=== PATIENT | female | born 1955 | race Caucasian/White ===

== ENCOUNTER 2023-06-08 07:49 | Outpatient (OUT) | payer OTHER, SELFPAY ==
--- NOTE | 2023-06-08 07:53 | US_ITS ---
The [address] [address] Patient Name: RUPERTO SARAVIA MRN: [id number] date: 1955 Sex: F Assigned Patient Location: US Current Patient Location: US Accession/Order Number: [id number] Exam Date: 06/08/2023 08:05 Report Date: 06/08/2023 09:22 At the request of: KERA STEELE Procedure: US renal BI EXAM: US renal BI HISTORY: Kidney Stone N20.0 COMPARISON: CT abdomen and pelvis 11/12/2022 TECHNIQUE: Real-time ultrasound imaging of the kidneys and bladder. Findings: The right and left kidneys measure 10.5 and11.7 cm. Nonobstructing bilateral renal stones. The largest is within the lower pole of the left kidney measuring 0.7 cm. No renal collecting system dilatation bilaterally. Left 1.3 x 1.5 x 1.0 cm simple cyst. No perinephric fluid collection. The bladder is fluid-filled and unremarkable with a prevoid volume of 397 mL. US/US renal BI IMPRESSION: 1. Nonobstructing bilateral renal stones. 2. Left renal cyst. Electronically authenticated by: ADRIÁN RODRIGUEZ Date: 06/08/2023 09:22
--- NOTE | 2023-06-08 07:53 | XR_ITS ---
The [address] [address] Patient Name: RUPERTO SARAVIA MRN: [id number] date: 1955 Sex: F Assigned Patient Location: US Current Patient Location: US Accession/Order Number: [id number] Exam Date: 06/08/2023 07:58 Report Date: 06/08/2023 08:28 At the request of: KERA STEELE Procedure: XR abdomen 1V EXAMINATION: XR abdomen 1V HISTORY: Kidney Stone N20.0 COMPARISON: CT abdomen pelvis 11/12/2022 FINDINGS: KIDNEY/URETER - RIGHT: No visible renal or ureteral calcifications. KIDNEY/URETER - LEFT: No visible renal or ureteral calcifications. PELVIS: A few tiny pelvic calcifications favoring phleboliths. BOWEL: No abnormal dilation or deviation. BONES: No acute abnormality. OTHER: Negative. No abnormal gaseous collections. XR/XR abdomen 1V IMPRESSION: 1. No appreciable urinary tract calculi. Evaluation is slightly limited by dense overlying bowel content. Electronically authenticated by: RAFAEL WARE Date: 06/08/2023 08:28
== END 2023-06-08 07:50 | disposition home or self-care (01) ==
LOC: US 07:49
PROVIDERS: PCP Internal Medicine; Visit Provider Urology
DX: N20.0 Calculus of kidney (principal)
CPT/HCPCS: 74018; 76775

== ENCOUNTER 2023-06-08 08:59 | Outpatient (OUT) | payer OTHER, MEDICARE, SELFPAY ==
[2023-06-08 09:27] LABS: Basophils Percent Auto 0.5 % (0.2-2.0); Eosinophils Absolute Auto 0.1 10^3/uL (0.0-0.7); Eosinophils Percent Auto 2.2 % (0.9-7.0); Hematocrit 40.6 % (36.0-48.0); Hemoglobin 13.7 g/dL (12.0-16.0); Immature Granulocytes Abs Auto 0.02 10^3/uL (0.00-0.03); Immature Granulocytes Pct Auto 0.3 % (0.0-0.5); Lymphocytes Absolute Auto 1.7 10^3/uL (1.2-3.8); Lymphocytes Percent Auto 28.9 % (20.5-60.0); Mean Corpuscular HGB Conc 33.7 g/dL (29.9-35.2); Mean Corpuscular Volume 97.8 fL (81.0-99.0); Mean Platelet Volume 9.3 fL (9.5-13.5); Monocytes Absolute Auto 0.4 10^3/uL (0.3-0.8); Monocytes Percent Auto 7.4 % (1.7-12.0); Neutrophils Absolute Auto 3.5 10^3/uL (1.4-6.5); Neutrophils Percent Auto 60.7 % (43.0-75.0); Platelet Count 306 10^3/uL (150-450); Red Blood Count 4.15 10^6/uL (4.20-5.40); Red Cell Distribution Width 12.4 % (11.0-15.0); White Blood Count 5.8 10^3/uL (4.0-11.0)
[2023-06-08 09:32] LABS: Estimated Average Glucose 120 mg/dL; Glycohemoglobin A1C 5.8 % (4.5-6.2)
[2023-06-08 10:26] LABS: Anion Gap 10.9; Carbon Dioxide 31.4 mmol/L (21.0-32.0); Chloride 103 mmol/L (98-107); Chol HDL Ratio 3.9; Cholesterol 189 mg/dL (<=200); Estimated GFR (African America >60 (>=60); Estimated GFR (Non-African Ame >60 (>=60); HDL Cholesterol 49 mg/dL (40-60); LDL Cholesterol Calculated 112.6 mg/dL; Potassium 4.3 mmol/L (3.5-5.1); Sodium 141 mmol/L (136-145); Thyroid Stimulating Hormone 1.635 uIU/mL (0.358-3.740); Triglycerides 137 mg/dL (<=150); VLDL CHOLESTEROL 27.4 mg/dL
== END 2023-06-08 09:00 | disposition home or self-care (01) ==
LOC: LAB 09:01
PROVIDERS: PCP Internal Medicine; Visit Provider Internal Medicine
DX: Z00.00 Encounter for general adult medical examination without abnormal findings (principal); N20.0 Calculus of kidney; R73.09 Other abnormal glucose; I10 Essential (primary) hypertension; E78.2 Mixed hyperlipidemia; M85.80 Other specified disorders of bone density and structure, unspecified site; Z79.899 Other long term (current) drug therapy
CPT/HCPCS: 36415; 74018; 76775; 80051; 80061; 82306; 82565; 83036; 83880; 84443; 84520; 85025

== ENCOUNTER 2023-07-07 09:35 | Outpatient (OUT) | payer OTHER, MEDICARE, SELFPAY ==
[2023-07-07 09:54] LABS: Basophils Percent Auto 0.7 % (0.2-2.0); Eosinophils Absolute Auto 0.1 10^3/uL (0.0-0.7); Eosinophils Percent Auto 2.5 % (0.9-7.0); Hemoglobin 13.6 g/dL (12.0-16.0); Immature Granulocytes Abs Auto 0.01 10^3/uL (0.00-0.03); Immature Granulocytes Pct Auto 0.2 % (0.0-0.5); Lymphocytes Absolute Auto 1.4 10^3/uL (1.2-3.8); Lymphocytes Percent Auto 34.8 % (20.5-60.0); Mean Corpuscular HGB Conc 32.4 g/dL (29.9-35.2); Mean Corpuscular Volume 98.8 fL (81.0-99.0); Mean Platelet Volume 9.5 fL (9.5-13.5); Monocytes Absolute Auto 0.3 10^3/uL (0.3-0.8); Monocytes Percent Auto 7.5 % (1.7-12.0); Neutrophils Absolute Auto 2.2 10^3/uL (1.4-6.5); Neutrophils Percent Auto 54.3 % (43.0-75.0); Platelet Count 229 10^3/uL (150-450); Red Blood Count 4.25 10^6/uL (4.20-5.40)
[2023-07-07 10:17] LABS: Estimated Average Glucose 123 mg/dL; Glycohemoglobin A1C 5.9 % (4.5-6.2)
[2023-07-07 11:14] LABS: Alanine Aminotransferase 41 U/L (14-59); Albumin Level 3.6 g/dL (3.4-5.0); Alkaline Phosphatase 65 U/L (46-116); Anion Gap 14.4; Aspartate Amino Transferase 13 U/L (15-37); Bilirubin Direct 0.1 mg/dL (0.0-0.2); Bilirubin Total 0.5 mg/dL (0.2-1.0); Carbon Dioxide 27.5 mmol/L (21.0-32.0); Chloride 104 mmol/L (98-107); Estimated GFR (African America >60 (>=60); Estimated GFR (Non-African Ame >60 (>=60); Globulin 3.6 g/dL; Potassium 3.9 mmol/L (3.5-5.1); Sodium 142 mmol/L (136-145); Thyroid Stimulating Hormone 1.392 uIU/mL (0.358-3.740); Total Protein 7.2 g/dL (6.4-8.2)
== END 2023-07-07 09:36 | disposition home or self-care (01) ==
LOC: LAB 09:35
PROVIDERS: PCP Internal Medicine; Visit Provider Internal Medicine
DX: Z79.899 Other long term (current) drug therapy (principal); E78.2 Mixed hyperlipidemia; E03.9 Hypothyroidism, unspecified; R73.09 Other abnormal glucose
CPT/HCPCS: 36415; 80051; 80076; 82565; 83036; 84443; 84520; 85025

== ENCOUNTER 2024-02-17 08:14 | Outpatient (OUT) | payer MEDICARE, OTHER, SELFPAY ==
--- OUTSIDE RECORDS SUMMARY | 2024-02-17 08:35 | XMS_ITS | CCD ---
Author Organization [facility] CliniSywv Care Team Providers Care Research Program Intern Name Role Phone Gerson Gonzalez Primary Care Provider Self, Referral Attending Provider Unavailable Lisa Carson, Gerson Loja Primary Care Provider GERSON GONZALEZ JR Primary Care Physician [phone] Lisa Carson, Gerson Loja Primary Care Provider Gerson Gonzalez Jr. Primary Care Provider DARRICK, DR ARAMNDO Melo Consulting Unavailable VALONE, DR SKY Primary Care Unavailable LEXI DIETZ Admitting Unavailable LULEXI Escamilla Attending Unavailable LEXI DIETZ Consulting Unavailable VALONE, DR SKY Primary Care Unavailable VINCENT BURCIAGA Attending Unavailable VINCENT BURCIAGA Admitting Unavailable CASSANDRA, ALHAJI Reis Attending Unavailable ALHAJI TRUJILLO Admitting Unavailable VALONE, DR SKY Primary Care Unavailable DARRICK, DR ARMANDO Melo Consulting Unavailable ALHAJI TRUJILLO Consulting Unavailable VINCENT BURCIAGA Admitting Unavailable VALONE, DR SKY Primary Care Unavailable DARRICK, DR ARMANDO Melo Consulting Unavailable VINCENT BURCIAGA Attending Unavailable VINCENT BURCIAGA Consulting Unavailable VALONE, DR SKY Primary Care Unavailable VALONE, DR SKY Admitting Unavailable VALONE, DR SKY Attending Unavailable VALONE, DR SKY Consulting Unavailable WEST, DR ARMANDO Melo Consulting Unavailable LEXI DIETZ Admitting Unavailable VALONE, DR SKY Primary Care Unavailable LEXI DIETZ Attending Unavailable LEXI DIETZ Consulting Unavailable JARAD BENAVIDES Consulting Unavailable JR Gerson Gonzalez Primary Care Provider [phone] CARLOS Wade Attending Provider ADINA ROSALES Attending Unavailable ELIZABETH HILLIARD Referring Unavailable GERSON GONZALEZ JR Primary Care Unavail able ADINA ROSALES Attending Unavailable GERSON GONZALEZ JR Primary Care Unavail able JR Gerson Gonzalez Primary Care Provider CARLOS Wade Attending Provider [phone] Gerson Gonzalez Primary Care Unavailable Vilma Wade Attending Unavailable Vilma Wade Admitting Unavailable Lexi Reid Attending Unavailable Lexi Reid Attending Unavailable MICHAEL CRUZ Attending Unavailable VILMA WADE Attending Unavailable VILMA WADE Referring Unavailable VILMA WADE Attending Unavailable GABRIEL BEYER Attending Unavailable MICHAEL CRUZ Attending Unavailable Allergies Allergy Classification Reported Allergen(s) Allergy Type Date of Onset Reaction(s) Facility (7 sources) Seasonal allergy; Translations: [SEASONAL ALLERGIES] Propensity to adverse reactions 0 Itching [facility] (1 source) Unable to Assess Drug allergy (disorder) 4 [facility] Repository Medications Current Medications Medication Drug Class(es) Dates Sig (Normalized) Sig (Original) onabotulinumtoxina 100 unt injection (3 sources) Acetylcholine Release Inhibitor Start: 04-10-2023 End: 05-10-2023 onabotulinum toxin type A 90 Units injection (BOTOX) Start: 06-01-2022 End: 06-01-2022 onabotulinum toxin type A 10 0 Units injection (BOTOX) Start: 01-19-2022 End: 01-19-2022 onabotulinum toxin type A 94 Units injection (BOTOX) clonazePAM 0.5 mg oral tablet (3 sources) Benzodiazepine Start: 07-23-2022 ClonazePAM 0.5 mg Tab Refills(s) 0 Start Date: 07/23/22 Status: Ordered End: 11-12-2021 clonazePAM (KLONOPIN) 0.5 mg tablet three times daily as needed. 0 11/12/2021 Discontinued (Course of therapy completed) Comment on above: three times daily as needed. FLUoxetine 20 mg oral capsule (10 sources) Serotonin Reuptake Inhibitor Start: 11-26-2022 take 1 mg by mouth once daily Prozac 20 mg Cap mg cap(s), Oral, Daily, Refills(s) 0 Start Date: 11/26/22 Status: Ordered Start: 11-06-2021 FLUoxetine 10 mg Cap Refills(s) 0 Start Date: 01/15/22 Status: Ordered Comment on above: Take 10 mg by mouth once daily. gabapentin 300 mg oral capsule (8 sources) Anti-epileptic Agent Start: 07-24-2021 take 1 capsule by mouth twice daily gabapentin 300 mg Cap 300 mg = 1 cap(s), Oral, BID Start Date: 07/24/21 Status: Ordered Start: 06-26-2014 End: 04-10-2023 gabapentin (NEURONTIN) 300 m g capsule Take 1 pill three times a day 270 capsule 3 06/26/2014 04/10/2023 Discontinued (Course of therapy completed) Comment on above: Take 1 pill three ti mes a day levothyroxine sodium 0.025 mg oral tablet (1 source) l-Thyroxine Start: 06-24-2023 levothyroxine 25 mcg (0.025 mg) Tab Refills(s) 0 Start Date: 06/24/23 Status: Ordered propranolol hydrochloride 20 mg oral tablet (10 sources) beta-Adrenergic Vamshi Start: 07-24-2021 propranolol 20 mg Tab 20 mg = 1 tab(s), Oral, As Directed Start Date: 07/24/21 Status: Ordered Comment on above: as needed. Completed/Discontinued Medications Medication Drug Class(es) Dates Sig (Normalized) Sig (Original) acetylcysteine in water/PF (ACETYLCYSTEINE, PF, IN WATER) 10 % drop (1 source) Start: 08-16-2019 End: 11-12-2021 take 1 drop(s) into the eye(s) three times daily acetylcysteine in water/PF (ACETYLCYSTEINE, PF, IN WATER) 10 % drop Use 1 Drop in the right eye three times daily. 10 mL 11 08/16/2019 11/12/2021 Discontinued Comment on above: Use 1 Drop in the ri ght eye three times daily. Ascorbic Acid (6 sources) Vitamin C ASCORBIC ACID (VITAMIN C ORAL) Take by mouth. 0 Active Comment on above: Take by mouth. 24 hr buPROPion hydrochloride 300 mg extended release oral tablet (1 source) Aminoketone Start: 08-30-2022 End: 04-10-2023 take 1 tablet by mouth once daily in the morning buPROPion XL (WELLBUTRIN XL) 300 mg 24 hr tablet Take 300 mg by mouth every morning. 0 08/30/2022 04/10/2023 Discontinued (Course of therapy completed) Comment on above: Take 300 mg by mouth every morning. cholecalciferol 0.05 mg oral capsule (6 sources) Vitamin D Start: 06-01-2008 CHOLECALCIFEROL (VITAMIN D3) 2,000 UNIT CAP Take one(1) tablet daily. 0 06/01/2008 Active Comment on above: Take one(1) tablet d aily. dexamethasone 0.001 mg/mg / neomycin 0.0035 mg/mg / polymyxin b 10 unt/mg ophthalmic ointment (1 source) Aminoglycoside Antibacterial, Polymyxin-class Antibacterial, Corticosteroid Start: 07-01-2019 End: 11-12-2021 neomycin/polymyxin b/dexametha(MAXITRO L 3.5 MG/G-10,000 UNIT/G-0.1 % EYE OINTMENT) four times a day X 1 week then twice a day x 1 week then once a day x 1 week 3.5 g 0 07/01/2019 11/12/2021 Discontinued (Course of therapy completed) Comment on above: four times a day X 1 week then twice a day x 1 week then once a day x 1 week erythromycin 0.005 mg/mg ophthalmic ointment (1 source) Macrolide, Macrolide Antimicrobial Start: 06-24-2019 End: 11-12-2021 erythromycin ophthalmic ointment Apply 1/2 inch ribbon per application to incisions and INTO both eyes four times daily x 1 week, then twice daily x 1 week, then stop. 0 06/24/2019 11/12/2021 Discontinued (Course of therapy completed) Comment on above: Apply 1/2 inch ribbo n per application to incisions and INTO both eyes four times daily x 1 week, then twice daily x 1 week, then stop. ezetimibe 10 mg oral tablet (10 sources) Dietary Cholesterol Absorption Inhibitor Start: 10-03-2021 take 1 tablet by mouth once daily ezetimibe (ZETIA) 10 mg tablet Take 10 mg by mouth once daily. 0 10/03/2021 Active Start: 07-24-2021 take 1 mg by mouth once daily ezetimibe mg, Oral, Daily Start Date: 07/24/21 Status: Ordered Comment on above: Take 10 mg by mouth once daily. famciclovir 500 mg oral tablet (1 source) Herpes Simplex Virus Nucleoside Analog DNA Polymerase Inhibitor Start: End: famciclovir (FAMVIR) 500 mg tablet lisdexamfetamine dimesylate 30 mg oral capsule (1 source) Central Nervous System Stimulant take 1 capsule by mouth once daily lisdexamfetamine (VYVANSE) 30 mg capsule Take 30 mg by mouth once daily. 0 Active Comment on above: Take 30 mg by mouth once daily. Magnesium Oxide-Mg Amino Acid Chelate (MAGNESIUM) 300 mg cap (3 sources) take 1 capsule by mouth once daily at bedtime Magnesium Oxide-Mg Amino Acid Chelate (MAGNESIUM) 300 mg cap Take 300 mg by mouth daily at bedtime. 0 Active Comment on above: Take 300 mg by mouth daily at bedtime. Magnesium Oxide-Mg Amino Acid Chelate 300 mg cap (3 sources) take 1 capsule by mouth once daily at bedtime Magnesium Oxide-Mg Amino Acid Chelate 300 mg cap Take 300 mg by mouth daily at bedtime. 0 Active Comment on above: Take 300 mg by mouth daily at bedtime. pravastatin sodium 10 mg oral tablet (8 sources) HMG-CoA Reductase Inhibitor Start: End: take 1 tablet by mouth once daily pravastatin (PRAVACHOL) 10 mg tablet Take 10 mg by mouth once daily. 0 11/01/2021 04/10/2023 Discontinued (Course of therapy completed) Comment on above: Take 10 mg by mouth once daily. sertraline 25 mg oral tablet (1 source) Serotonin Reuptake Inhibitor Start: End: sertraline (ZOLOFT) 25 mg tablet Vitamin B Complex (6 sources) Start: take 1 tablet by mouth once daily vitamin b complex tab Take 1 tablet by mouth once daily. 0 08/03/2018 Active Comment on above: Take 1 tablet by ramírez th once daily. Zinc (1 source) Start: End: Zinc 50 mg tab Take by mouth. 0 08/03/2018 11/12/2021 Discontinued Comment on above: Take by mouth. Problems Active Problems Problem Classification Problem Date Documented Date Episodic/Chronic Abdominal pain (6 sources) Abdominal pain; Translations: [Unspecified abdominal pain] Onset: 01-15-2022 Episodic Anxiety disorders (10 sources) Anxiety state; Translations: [Generalized anxiety disorder] 06-01-2008 Chronic Blindness and vision defects (1 source) Visual hallucinations; Translations: [Visual hallucinations] Onset: 11-03-2023 Episodic Calculus of urinary tract (12 sources) Kidney stone; Translations: [Calculus of kidney] Onset: 01-15-2022 Episodic Cardiac and circulatory congenital anomalies (6 sources) Congenital anomaly of cerebrovascular system; Translations: [Other malformations of cerebral vessels] Onset: 07-17-2005 04-01-2018 Chronic Disorders of lipid metabolism (4 sources) Hyperlipidemia 07-24-2021 Chronic Genitourinary symptoms and ill-defined conditions (4 sources) Stress incontinence (female) (male); Translations: [Genuine stress incontinence] Onset: 11-26-2022 Chronic Genitourinary symptoms and ill-defined conditions (5 sources) Hypercalciuria; Translations: [Hypercalciuria] Onset: 01-15-2022 Episodic Headache; including migraine (4 sources) Headache 07-24-2021 Episodic Menopausal disorders (7 sources) Menopausal syndrome; Translations: [Menopausal and female climacteric states] Onset: 11-12-2021 Chronic Osteoarthritis (8 sources) Arthritis; Translations: [Primary osteoarthritis, right ankle and foot] Onset: 02-27-2022 07-24-2021 Chronic Other connective tissue disease (4 sources) Neuralgia 07-24-2021 Episodic Other diseases of kidney and ureters (1 source) Acquired renal cyst without neoplastic change; Translations: [Cyst of kidney, acquired] Onset: 06-24-2023 Episodic Other diseases of kidney and ureters (1 source) Simple renal cyst 06-24-2023 Episodic Other eye disorders (6 sources) Vertical nystagmus; 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] Onset: 12-21-2013 12-21-2013 Chronic Other eye disorders (4 sources) Nystagmus 07-24-2021 Chronic Other hereditary and degenerative nervous system conditions (6 sources) Myoclonus; Translations: [Myoclonus] 06-01-2008 Chronic Other nervous system disorders (1 source) Facial spasm; 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, unspecified] Episodic Other nervous system disorders (2 sources) Facial nerve motor disorder; Translations: [Other disorders of facial nerve] Episodic Other nervous system disorders (1 source) Facial palsy; 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] 04-10-2023 Episodic Other nutritional; endocrine; and metabolic disorders (7 sources) Obese class I; Translations: [Obesity, unspecified] Onset: 11-12-2021 Chronic Other nutritional; endocrine; and metabolic disorders (4 sources) Body mass index 30+ - obesity 09-18-2021 Chronic Thyroid disorders (11 sources) Multinodular goiter; Translations: [Nontoxic multinodular goiter] Onset: 11-12-2021 Chronic Past or Other Problems Problem Classification Problem Date Documented Date Episodic/Chronic Disorders of teeth and jaw (6 sources) Articular disc disorder of temporomandibular joint; Translations: [Articular disc disorder of temporomandibular joint, unspecified side] Onset: 0 04-24-2010 Episodic Other bone disease and musculoskeletal deformities (1 source) Other specified disorders of bone density and structure, left thigh; Translations: [OTH D/O BONE DEN STRUCT LT THIGH] Onset: 2 Episodic Other connective tissue disease (6 sources) Trismus; Translations: [Cramp and spasm] Onset: 0 03-27-2010 Episodic Other connective tissue disease (6 sources) Muscle pain; Translations: [Myalgia and myositis, unspecified] Onset: 1 05-07-2011 Episodic Other connective tissue disease (6 sources) Muscle, ligament and fascia disorders; Translations: [Disorder of muscle, unspecified] Onset: 3 11-04-2012 Episodic Other connective tissue disease (1 source) Calcaneal spur, right foot; Translations: [CALCANEAL SPUR RIGHT FOOT] Onset: 2 Episodic Other connective tissue disease (4 sources) Pain in right foot; Translations: [PAIN IN RIGHT FOOT] Onset: 2 Episodic Other eye disorders (6 sources) Abducens nerve palsy; Translations: [Sixth [abducent] nerve palsy, unspecified eye] Onset: 8 06-01-2008 Episodic Other nervous system disorders (6 sources) Cranial nerve disorder; Translations: [Cranial nerve disorder, unspecified] Onset: 9 06-05-2009 Episodic Residual codes; unclassified (4 sources) Asymptomatic menopausal state; Translations: [ASYMPTOMATIC MENOPAUSAL STATE] Onset: 2 Episodic Results Test Name Value Interpretation Reference Range Facility Reminderson 12-30-2023 Reminders - From: Alejandra Garcia To: [facility]ER[facility] - Recallkirill Reid; Sent: 06/24/2023 08:37:16 EST Show up: 11/23/2023 09:37:00 EDT Subject: KUB and CEASAR prior to appt Reminder Message Please Remember to:_have pt get KUB and CEASAR prior to appt. Pt has gone to [facility] in the past. KUB/CEASAR order faxed to [facility]. Called pt and left to return our call. Pt moved appointment back to 03/30/24 Normal [facility] Creatinine (Bld) [Mass/Vol]O rdered By: Vilma Wade on 11-03-2023 Creatinine [Mass/Vol] 0.6 mg/dL 0.6-1.3 [facility] Comment on above: ER/ESD physician is notified/shown all ISTAT results.Critical values may be confirmed by laboratory testing ifdeemed necessary by ER attending doctor. ISTAT XRay CREon 11-03-2023 Creatinine [Mass/Vol] 0.6 mg/dL Normal 0.6-1.3 [facility] Comment on above: Result Comment: ER/E SD physician is notified/shown all ISTAT results. Critical values may be confirmed by laboratory testing if deemed necessary by ER attending doctor. Performed By: #### I SCRE #### [facility] [address] [place] [address] ISTAT GFR > 60.0 Normal [facility] Comment on above: Result Comment: PERF ORMED BY: [place] [address] PATHOLOGIST BOAT HOP TIFFANIE ROSS M.D. Performed By: #### I SCRE #### [facility] [address] [place] [address] MR head/brain wo/w conon MR head/brain wo/w con [facility] [place] [address] MRI Report Signed Patient: Ofe Saravia MR#: [id number] : 1955 Acct:[id number] Age/Sex: 68 / F ADM Date: 11/03/23 Loc: MR Room: Type: [facility] Attending Dr: Vilma Wade PA-C Copies to: Vilma Wade PA-C Ordering Provider: Vilma Wade PA-C Date of Service: 11/03/23 MR/MR head/brain wo/w con: Q27.30, R44.1 MR head/brain wo/w con 11/03/2023 11:14 AM SIGN AND SYMPTOMS: Headaches posteriorly, left-sided facial droop PROTOCOL: Multiplanar multisequence MR images of the brain were obtained with and without IV contrast CONTRAST: 20 mL of intravenous ProHance COMPARISON: 09/25/2014 FINDINGS: Extra axial spaces: Age appropriate. Hemorrhage: Susceptibility is noted in the pontine tegmentum to the right of midline consistent with a history of cavernous malformation. A small focus of susceptibility is noted in the left parietal lobe possibly representing the location of a second cavernous malformation. Ventricular system: Within normal limits. Basal cisterns: Within normal limits and not effaced. Cerebral parenchyma: T2 and FLAIR hyperintense signal is noted in the periventricular and subcortical white matter consistent with mild chronic microvascular ischemic change. Midline shift: None.. Cerebellum: There is atrophy of the left cerebellar hemisphere. Brainstem: There is increased T2 and FLAIR signal intensity within the medulla anteriorly. OTHER: Calvarium: There is evidence of a previous occipital craniotomy. Vascular system: Satisfactory flow voids within the anterior and posterior circulation. Visualized Paranasal sinuses: Within normal limits. Visualized Orbits: Within normal limits. Visualized upper cervical spine: Within normal limits. Sella and skull base: Within normal limits. MR/MR head/brain wo/w con IMPRESSION: Susceptibility is noted in the pontine tegmentum to the right of midline consistent with a history of cavernous malformation. A small focus of susceptibility is noted in the left parietal lobe possibly representing the location of a second cavernous malformation. There is atrophy of the left cerebellar hemisphere. There is increased T2 and FLAIR signal intensity within the medulla anteriorly. No acute intracranial pathology or abnormal postcontrast enhancement. Additional chronic findings are noted, as above. Impression dictated by: Sanjiv Reis M.D.11/03/2023 3:10 PM Dictation Location: [facility]-- Transcribed By: COLETTE 11/03/23 1510 Dictated By: Sanjiv Reis II, MD 11/03/23 1410 Signed By: 11/03/23 1510 Normal [facility] No Panel InformationOrdered By: Vilma Wade on 11-03-2023 Bedside Estimated GFR (eGFR) > 60.0 [facility] CNCOon 10-14-2023 CNCO Letter Text Normal [facility] CNOVon 10-09-2023 CNOV Office Visit (OTOLMN ) OFE SARAVIA ([id number]) 1955 F Date Time Provider Department 10/09/23 10:00 AM ADINA ROSALES OTOLMN During your visit today, we recorded the following information about you: Adina Rosales MD 10/18/2023 4:43 PM Signed [facility] [place] [facility]ive Surgery Name: Ofe Saravia Date of Service: 10/10/22 Patient ID: 66 year old female w/ brainstem surgery on 11/01/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 Hilliard on 04/14/2016. HPI: Here today in follow up for routine botox injections. Doing well since last visit, really liked orbicular williams injections and wants more. 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 100u/1cc botox injected into: Left orbicularis oculi (2u, 3 sites) = 6 U Left lower pretarsal ( 2u, 2 site) = 4 units Left lateral pretarsal (5U, 1 site) = 5 units Left levator alaeque nasi (2u, 1site) = 2U Left nasalis (3U, 1 site)=3U Left TAMRA (3U 1 site)=3U Lateral to philtrum (2u, 4 sites) = 8 units Left depressor septi (2 units 1 site) = 2 U Left jogger operator (3u, 2 site) = 6 U Left procerus (3u, 1 site) = 3 U Left mentalis (2u, 3 sites) 6 U Left platysma (3u, 18 x sites) = 54 units Right TAMRA (3U 1 site)=3U Right jogger operator (2U, 2 sites) = 4U Right lateral orbicularis infrabrow= 2U, 1 site=2U Right platysma (3U [id number]) = 9 U Total: 120 units used (3 Units of botox discarded) Assessment: 66 year old female w/ a hx of facial paralysis and an 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 Here today for botox injections and procedure was tolerated well. Interested in lip AND nasolabial fold filler at next appt Plan: RTC in 3-4 months for repeat botox injections, sooner for filler. Quote sent Patient will send mychart, does not wish to schedule at this time Adina Rosales MD Facial Plastic and Reconstructive Surgery Fellow [facility], [facility] [place] Bogdan Mirza RN 10/09/2023 10:38 AM Signed Tobacco Use: 1.5 packs/day, for 18 years. Quit 07/20/1999. Types: Cigarettes Was smoking cessation packet given? N/A - Patient is a non-smoker or quit >1 year ago. Was a referral initiated?N/A Patient is a non-smoker Allergies As of Date: 10/09/2023 Noted Allergy Reaction SEASONAL ALLERGIES 01/02/2010 9 - Itching Date Reviewed: 10/09/2023 Reviewed by: Bogdan Mirza RN - Fully Assessed Reason for Visit: Established Patient [175] Cmt: Botox injection for facial paralysis Primary Visit Diagnosis:Facial paralysis [G51.0] Order(s):[] onabotulinum toxin type A 120 Units injection (BOTOX)Disp: Rfl: Prescriptions as of 10/18/2023 - FLUoxetine (PROZAC) 20 mg capsule Take 20 mg by mouth once daily. - ezetimibe (ZETIA) 10 mg tablet Take 10 mg by mouth once daily. - propranolol (INDERAL) 20 mg tablet as needed. - vitamin b complex tab Take 1 tablet by mouth once daily. - ASCORBIC ACID (VITAMIN C ORAL) Take by mouth. - Magnesium Oxide-Mg Amino Acid Chelate 300 mg cap Take 300 mg by mouth daily at bedtime. - CHOLECALCIFEROL (VITAMIN D3) 2,000 UNIT CAP Take one(1) tablet daily. 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 Quit 07/20/1999. Types: Cigarettes Was smoking cessation packet given? N/A - Patient is a non-smoker or quit >1 year ago. Was a r (more content not included)... Normal [facility] Patient Educationon 06-24-20 Patient Education Nephrology Dietary Guidelines to Help Prevent Kidney Stones Kidney stones are deposits of minerals and salts that form inside your kidneys. Your risk of developing kidney stones may be greater depending on your diet, your lifestyle, the medicines you take, and whether you have certain medical conditions. Most people can lower their risks of developing kidney stones by following these dietary guidelines. Your dietitian may give you more specific instructions depending on your overall health and the type of kidney stones you tend to develop. What are tips for following this plan? Reading food labels ? Choose foods with no salt added or low-salt labels. Limit your salt (sodium) intake to less than 1,500 mg a day. ? Choose foods with calcium for each meal and snack. Try to eat about 300 mg of calcium at each meal. Foods that contain 200?500 mg of calcium a serving include: ? 8 oz (237 mL) of milk, calcium-fortifiednon- dairy milk, and calcium-fortifiedfrui t juice. Calcium-fortified means that calcium has been added to these drinks. ? 8 oz (237 mL) of kefir, yogurt, and soy yogurt. ? 4 oz (114 g) of tofu. ? 1 oz (28 g) of cheese. ? 1 cup (150 g) of dried figs. ? 1 cup (91 g) of cooked broccoli. ? One 3 oz (85 g) can of sardines or mackerel. Most people need 1,000?1,500 mg of calcium a day. Talk to your dietitian about how much calcium is recommended for you. Shopping ? Buy plenty of fresh fruits and vegetables. Most people do not need to avoid fruits and vegetables, even if these foods contain nutrients that may contribute to kidney stones. ? When shopping for convenience foods, choose: ? Whole pieces of fruit. ? Pre-made salads with dressing on the side. ? Low-fat fruit and yogurt smoothies. ? Avoid buying frozen meals or prepared deli foods. These can be high in sodium. ? Look for foods with live cultures, such as yogurt and kefir. ? Choose high-fiber grains, such as whole-wheat breads, oat bran, and wheat cereals. Cooking ? Do not add salt to food when cooking. Place a salt shaker on the table and allow each person to add their own salt to taste. ? Use vegetable protein, such as beans, textured vegetable protein (TVP), or tofu, instead of meat in pasta, casseroles, and soups. Meal planning ? Eat less salt, if told by your dietitian. To do this: ? Avoid eating processed or pre-made food. ? Avoid eating fast food. ? Eat less animal protein, including cheese, meat, poultry, or fish, if told by your dietitian. To do this: ? Limit the number of times you have meat, poultry, fish, or cheese each week. Eat a diet free of meat at least 2 days a week. ? Eat only one serving each day of meat, poultry, fish, or seafood. ? When you prepare animal proteins, cut pieces into small portion sizes. For most meat and fish, one serving is about the size of the palm of your hand. ? Eat at least five servings of fresh fruits and vegetables each day. To do this: ? Keep fruits and vegetables on hand for snacks. ? Eat one piece of fruit or a handful of berries with breakfast. ? Have a salad and fruit at lunch. ? Have two kinds of vegetables at dinner. ? You may be told to limit foods that are high in a substance called oxalate. These include: ? Spinach (cooked), rhubarb, beets, sweet potatoes, and Belarusian chard. ? Peanuts. ? Potato chips, nepalese fries, and baked potatoes with skin on. ? Nuts and nut products. ? Chocolate. ? If you regularly take a diuretic medicine, make sure to eat at least 1 or 2 servings of fruits or vegetables that are high in potassium each day. These include: ? Avocado. ? Banana. ? [place], prune, carrot, or tomato juice. ? Baked potato. ? Cabbage. ? Beans and split peas. Lifestyle ? Drink enough fluid to keep your urine pale yellow. This is the most important thing you can do. Spread your fluid intake throughout the day. ? If you drink alcohol: ? Limit how much you have to: ? 0?1 drink a day for women who are not . ? 0?2 drinks a day for men. ? Know how much alcohol is in your drink. In the [place] one drink equals one 12 oz bottle of beer (355 mL), one 5 oz glass of wine (148 mL), or one 1? oz glass of hard liquor (44 mL). ? Lose weight if told by your health care provider. Work with your dietitian to find an eating plan and weight loss strategies that work best for you. General information ? Talk to your health care provider and dietitian about taking daily supplements. Depending on your health and the cause of your kidney stones, you may be told: ? Do not take high-dose supplements of vitamin C (1,000 mg a day or more). ? To take a calcium supplement. ? To take a daily probiotic supplement. ? To take other supplements such as magnesium, fish oil, or vitamin B6. ? Take ycui-wrb-rmfjiow and prescription medicines only as told by your health care provider. These include supplements. What foods sh (more content not included)... Normal [facility] Urology Office/Clinic Noteon 06-24-2023 Urology Office/Clinic Note Chief Complaint 6m CEASAR & KUB HPI Staff 7m KUB & CEASAR DX: Kidney Stone & Stress Incontinence *No Urology Meds KUB & CEASAR 06/08/23 Denies current Kidney Stone symptoms. Has been trying to drink the lemon juice daily. Denies daily incontinence. Does have some leaking with coughing when she has a full bladder. Denies urinary complaints. History of Present Illness Tests reviewed: reviewed UA, CEASAR, KUB I have reviewed the previous health record information and history for this patient from Dr. Reid. I have reviewed and verified the staff HPI to be accurate for this encounter. Review of Systems PHQ Score Initial Depression Screen Score: 0 SCORE ROS - Provider Constitutional: denies weight loss, denies hot flashes. Eyes: denies eye problems. Gastrointestinal: denies nausea, denies vomiting. Cardiovascular: denies chest pain or angina. Integumentary: no dryness Musculoskeletal: denies musculoskeletal symptoms. ENMT: denies otolaryngeal symptoms. Respiratory: no shortness of breath. Heme/Lymph: denies easy bleeding tendency, denies easy bruising tendency. Psychiatric: no confusion, no anxiety. Genitourinary: See HPI. Physical Exam Vitals & Measurements HT: 69 in HT: 175 cm WT: 95 kg WT: 209 lb BMI: 31.02 General Appearance: alert , no acute distress, well nourished, well developed female. Genitourinary: bladder nonpalpable, no flank pain. Assessment/Plan 67 yo F here for 7 mo f/u to review KUB and CEASAR. 1. Kidney stone (N20.0: Calculus of kidney) CT AP 07/31/21 - Mild right hydroureter with periureteral stranding near the distal ureter without evidence of obstructing stone. And nonobstructing 3 mm nephrolithiasis within the superior pole of the left kidney. KUB 07/08/22 - Left superior pole renal calculus. US kidneys 07/08/22 - Nonobstructing superior pole left renal calculus. CT AP wo con 11/12/22 [facility] - Bilateral punctate nonobstructing nephrolithiasis (3 on right, 1 on left all < 1mm) . No hydro. KUB 06/08/23 [facility] - no stones id'd but bowel limits study. CEASAR 06/08/23 [facility] - nonobstructing bilateral renal stones, measuring up to 0.7cm in LLP. No hydro. Personal review: R measuring up to 7mm, L measuring 3-4mm. 07/31/21: Met w/u: WNL. BUN 19.0, CREA 0.79, Uric acid 4.1, PTH 24. 08/15/21: 24hr urine Litholink: high calcium levels, advised patient to avoid taking calcium supplements and try to get these from food. 12/25/21: 24hr [facility]olink: Calcium improved from 448 to 232, Citrate improved 440 to 770, Sodium worsened from 222 to 237. Pt's Volume was 2 liters. UA today negative for blood and infection. Denies any stone episodes since last encounter. Has been trying to increase her daily intake of water and lemon juice, has not been doing well with diet lately, plans to restart. Discussed recent imaging results. Stones have increased in size slightly but US do tend to overestimate size. Discussed with pt possible options, such as repeat metabolic workup, starting medications such as HCTZ pending repeat workup, or continuing dietary modifications. Pt would like to continue dietary modifications to prevent further stone growth/formation. Risks discussed -Increase water intake -Increase Ca intake with diet, if supplement needed per PCP then have with food. -6 mos w/ KUB and CEASAR 2. Stress incontinence (N39.3: Stress incontinence (female) (male)) Only has leakage with coughing with full bladder. States when she had a cold a few weeks ago, her leakage worsened but has improved since. Can do PFPT at home but does has not been doing it. Not bothersome enough to warrant tx. Advised pt if this sx worsens to let our office know to discuss possible tx options. -Kegel exercises, timed voids 3. Simple renal cyst (N28.1: Cyst of kidney, acquired) [facility] 06/08/23 [facility] - 1.3 x 1.5 x 1.0 cm simple cyst. No indication for intervention. I spent 30 minutes today with the patient: reviewing tests in preparation to see and discuss them with the patient, documenting clinical information in the electronic health records, and care coordination. Time was spent performing a medical exam and evaluation, counseling and educating the patient, and ordering tests in caring for the patient. Follow-up With When Contact Information Franklin FLOYD, Lexi Regalado, URL, [facility] [address] [place] [address]- [phone] Additional Instructions: 6 mos w/ KUB and CEASAR Patient Education Dietary Guidelines to Help Prevent Kidney Stones Alejandra Sweeney, personally scribed for Dr. Reid on 06/24/2023 08:35:40. . Documentation recorded by the scribeAlejandra, accurately reflects the services(s) I performed and decisions made by me. Authenticated by Dr. Reid on 06/24/2023 08:45:01. Problem List/Past Medical History Ongoing Arthritis BMI 31.0-31.9,adult Flank pain Headache Hypercalciuria Hyperlipidemia Hypothyroid Kidney stone Nerve pain Nystagmus Panic disorder Simple renal (more content not included)... Normal [facility] Comment on above: Result Comment: Elec tronically Signed By: Lexi Reid MD\.br\Date and Time Signed: 06/24/23 08:45 EST\.br\Electronically Co-Signed By: Alejandra Garcia\.br\Date and Time Co-Signed: 06/24/23 08:35 EST RAD - MISCon 06-09-2023 RAD - MISC [id number]. 00TIFF Normal [facility] RAD - Ultrasound Reporton RAD - Ultrasound Report [id number]. 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 Hilliard on 04/14/2016. HPI: Here today in follow up for routine botox injections. Doing well since last visit but did not like impact on mouth, felt like upper lip was too rolled up. 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 - Significant asymmetry due to hyperdynamic function of all divisions of left facial nerve - Frontalis and orbicularis oculi, zygomaticus major, levator labii and jogger operator - Severe lateral pull of upper lip to left - related to midface muscles and hyperdynamic orbicularis williams - philtrum significantly canted EYE -Downward pull due to platysma, mentalis, depressor right eye closure complete, weight in good position -Lower lid position good Procedure note: Injection facial botox Technique: 100u/1cc botox injected into: Left orbicularis oculi (2u, 4 sites) = 8 U Left lower pretarsal ( 1u, 4 site) = 4 U Left levator alaeque nasi (2AND3u, 2site) = 5 U Lateral to philtrum (2u, 4 sites) = 8 U Left jogger operator (3u, 2 site) = 6 U Left procerus (3u, 1 site) = 3 U Left mentalis (3AND2u, 3 sites) 8 U Left platysma (3u, 16 x sites) = 48 units Total: 90 units used (10 Units of botox discarded) Assessment: 66 year old female w/ a hx of facial paralysis and an 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 Here today for botox injections and procedure was tolerated well. Interested in lip AND nasolabial fold filler at next appt Plan: RTC in 3-4 months for repeat botox injections, sooner for filler Patient will send mychart, does not wish to schedule at this time Adina Rosales MD Facial Plastic and Reconstructive Surgery Fellow [facility], [facility] [place] Macy Leyva RN 04/10/2023 9:45 AM Signed Tobacco Use: 1.5 packs/day, for 18 years. Quit 07/20/1999. Types: Cigarettes Was smoking cessation packet given? N/A - Patient is a non-smoker or quit >1 year ago. 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 - ezetimibe (ZETIA) 10 mg tablet Take 10 mg by mouth once daily. - propranolol (INDERAL) 20 mg tablet as needed. - vitamin b complex tab Take 1 tablet by mouth once daily. - ASCORBIC ACID (VITAMIN C ORAL) Take by mouth. - Magnesium Oxide-Mg Amino Acid Chelate 300 mg cap Take 300 mg by mouth daily at bedtime. - CHOLECALCIFEROL (VITAMIN D3) 2,000 UNIT CAP Take one(1) tablet daily. 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 Quit 07/20/1999. Types: Cigarettes Was smoking cessation packet given? N/A - Patient is a non-smoker or quit >1 year ago. Was a referral initiated?N/A Patient is a non-smoker Prescriptions ordered this encounter Disp Refills Start End ONABOTULINUMTOXINA 100 UNIT SOLUTION* 04/10/ (more content not included)... Normal [facility] CT ABD/PELVIS WO CONon 11-12 CT ABD/PELVIS WO CON EXAMINATION: CT ABD/PELVIS WO CON, 11/12/2022 10:02 AM EDT HISTORY: Kidney stone COMPARISON: 07/31/2021 TECHNIQUE: CT scan of the abdomen and pelvis was performed without IV contrast. CT dose reduction technique was used, including Automated Exposure Control. FINDINGS: LUNG BASES: No visible pulmonary or pleural disease. LIVER: Diffuse hyper density suggesting steatosis. No focal lesion BILIARY: No dilatation or calcification. PANCREAS: 1.7 cm hypodensity proximal pancreatic body, stable SPLEEN: No enlargement or focal lesion. ADRENALS: No mass or enlargement. KIDNEYS: Bilateral punctate nonobstructing nephrolithiasis. No hydronephrosis. BOWEL/MESENTERY: No visible mass, obstruction, or bowel wall thickening. AORTA/VASCULAR: No aortic aneurysm. Mild atherosclerosis RETROPERITONEUM: No mass or adenopathy. LYMPH NODES: No adenopathy. URINARY BLADDER: No visible focal wall thickening, lesion, or calculus. PELVIC ORGANS: 2.5 cm left adnexal cyst. Pelvic organs appropriate for patient age. ABDOMINAL WALL: No mass or hernia. BONES: No bony lesion or fracture. OTHER: Negative. IMPRESSION: Punctate bilateral nephrolithiasis with no obstructive uropathy 2.5 cm left adnexal cyst Stable 1.7 cm proximal pancreatic body hypodensity DIAGNOSIS CODE: #DC 1000: NO ALERT REQUIRED VA_DIAGNOSTIC_CODE Electronically authenticated by: ARMANDO HOLLINGSWORTH Date: 2022-11-12 11:22 Normal [facility] US KIDNEYSon 07-08-2022 US KIDNEYS US KIDNEYS EXAM DATE: 07/08/2022 5:54 AM MST COMPARISON: Same day radiograph, CT abdomen and pelvis without contrast 07/31/2021 INDICATION: History of kidney stones. TECHNIQUE: Real-time ultrasound scanning of the kidneys and bladder was performed by the wet process miller head. Sales Record Clerk static images are submitted for review. FINDINGS: Right Kidney: The right kidney measures 10.8 x 5.2 x 6.1 cm and has a volume of 180 mL. Normal echogenicity. No hydronephrosis. No shadowing calculi. No obvious contour deforming lesion or solid renal mass. Renal cortex measures 1.6 cm. Left Kidney: The left kidney measures 11.1 x 5.1 x 5.4 cm and has a volume of 160 mL. Normal echogenicity. No hydronephrosis. Nonobstructing superior pole echogenic focus with associated twinkle artifact measures 7 x 6 x 4 mm. No obvious contour deforming lesion or solid renal mass. Renal cortex measures 1.8 cm. Bladder: Volume measures up to 420 mL. No focal or diffuse bladder wall thickening noted. IMPRESSION: 1. Nonobstructing superior pole left renal calculus. 2. No hydronephrosis. Electronically authenticated by: JARAD BENAVIDES Date: 2022-07-08 16:58 Normal [facility] XR KUB 1 VIEWon 07-08-2022 XR KUB 1 VIEW EXAM: XR KUB 1 VIEW STUDY DATE: 07/08/2022 5:55 AM MST COMPARISONS: CT abdomen and pelvis without contrast 07/31/2021, ultrasound kidneys 07/08/2022 INDICATION: Kidney stone TECHNIQUE: AP abdominal radiograph. FINDINGS: Bowel gas pattern: Nonobstructive bowel gas pattern. Moderate colonic stool burden. Abnormal calcifications: Pelvic phleboliths. No definite radiopaque calculi projecting over the projected location of the kidneys, ureters, or bladder. Recently identified left superior pole renal calculus is not profiled radiographically. Bone: No acute osseous abnormality. Transitional lumbosacral anatomy is incidentally noted. Soft tissues: No gross organomegaly or mass effect. IMPRESSION: 1. Left superior pole renal calculus, visualized on same day ultrasound, is not profiled radiographically. 2. No radiopaque renal calculi identified. 3. Nonobstructive bowel gas pattern. Electronically authenticated by: JARAD BENAVIDES Date: 2022-07-08 17:05 Normal [facility] XR DEXA BONE DENSITYon 06-05 XR DEXA BONE DENSITY EXAMINATION: XR DEX A BONE DENSITY, 06/05/2022 11:17 AM EST HISTORY: Menopause present COMPARISON: 2015 TECHNIQUE: Dual-energy X-ray absorptiometry (DEXA) bone density study performed for the axial skeleton. FINDINGS: Bone mineral density AP spine L1-L4 measures 1.002 g/sq cm. T score -1.5. WHO classification: Osteopenia. Lowest bone mineral density left femoral neck measuring 0.779 g/sq cm. T score -1.9. WHO classification: Osteopenia IMPRESSION: Osteopenia. Moderate fracture risk Electronically authenticated by: ARMANDO HOLLINGSWORTH Date: 2022-06-05 12:51 Normal [facility] CT FOOT RT WO CONon 02-28-[address] FOOT RT WO CON EXAMINATION: CT FOOT RT WO CON HISTORY: Arthritis of right foot COMPARISON: No relevant comparison available. TECHNIQUE: Multi-planar CT images were created without IV contrast. Dose reduction techniques were achieved by using automated exposure control and/or adjustment of mA and/or kV according to patient size and/or use of iterative reconstruction technique. FINDINGS: BONES: No acute fracture or dislocation. Moderate enthesopathic spurring of the calcaneus at the Achilles and plantar insertions. Mild degenerative changes consisting primarily of joint space narrowing. No subchondral erosions. No focal lytic or sclerotic changes. SOFT TISSUES: Negative. No visible soft tissue swelling. EFFUSION: None visible. OTHER: Negative. IMPRESSION: Mild degenerative changes consisting primarily of joint space narrowing Moderate enthesopathic spurring of the calcaneus Electronically authenticated by: ARMANDO HOLLINGSWORTH Date: 2022-02-27 18:17 Normal [facility] T4 FREE/FREE THYROXon 2021 Free T4 [Mass/Vol] 1.0 ng/dL 0.9 - 1.7 ng/dL [facility] TSH BLDon 11-12-2021 TSH Qn 2.420 m[IU]/L 0.270 - 4.200 mIU/L [facility] Vital Signs Date Time Vital Sign Value Performing Clinician Landy flores 11-03-2023 11:21-0400 Body height 175.26 cm JR Gerson Gonzalez Work Phone: [facility] 11-03-2023 11:21-0400 Body weight 97.52 kg JR Gerson Gonzalez Work Phone: [facility] 11-26-2022 07:56-0400 Blood Pressure Location Lexi Lue [facility] 11-26-2022 07:56-0400 Diastolic blood pressure 67 mm[Hg] Lexi Lue [facility] 11-26-2022 07:56-0400 Heart rate 62 /min Lexi Lue [facility] 11-26-2022 07:56-0400 Systolic blood pressure 113 mm[Hg] Lexi Lue [facility] 01-15-2022 10:13-0400 Blood Pressure Location Lexi Lue [facility] 01-15-2022 10:13-0400 Diastolic blood pressure 73 mm[Hg] Lexi Lue [facility] 01-15-2022 10:13-0400 Heart rate 70 /min Lexi Lue [facility] 01-15-2022 10:13-0400 Respiratory rate 16 /min Lexi Lue [facility] 01-15-2022 10:13-0400 Systolic blood pressure 122 mm[Hg] Lexi Lue [facility] 11-12-2021 10:56-0400 Body height 175.3 cm Shawna Card MD, PhD Work Phone: [facility] 11-12-2021 10:56-0400 Body weight 98.88 kg Shawna Card MD, PhD Work Phone: [facility] 11-12-2021 10:56-0400 Diastolic blood pressure 74 mm[Hg] Shawna Card MD, PhD Work Phone: [facility] 11-12-2021 10:56-0400 Heart rate 64 /min Shawna Card MD, PhD Work Phone: [facility] 11-12-2021 10:56-0400 Systolic blood pressure 128 mm[Hg] Shawna Card MD, PhD Work Phone: [facility] Encounters Encounter Date Encounter Type Care Provider Facility Start: 03-30-2024 ambulatory Lexi Reid Facility: [facility] Start: 02-02-2024 End: 02-02-2024 ambulatory MICHAEL CRUZ Not Available Start: 01-28-2024 End: 01-28-2024 ambulatory MICHAEL CRUZ Not Available Start: 01-11-2024 End: 01-11-2024 ambulatory GABRIEL BEYER Not Available Start: 12-28-2023 End: 12-28-2023 ambulatory VILMA WADE Not Available Start: 12-10-2023 End: 12-10-2023 ambulatory VILMA WADE Not Available Start: 11-12-2023 End: 11-12-2023 ambulatory VILMA WADE Not Available Start: 11-03-2023 End: 11-03-2023 ambulatory Gerson Meeksbrandy Facility:[facility] Start: 11-03-2023 End: 11-03-2023 ambulatory JR Gerson Owens Lisa Work Phone: [facility] Work Phone: Start: 11-03-2023 End: 11-03-2023 Patient encounter procedure JR Gerson Gonzalez Work Phone: [facility] Work Phone: Start: 10-09-2023 End: 10-09-2023 ambulatory ADINA ROSALES Facility:[facility] Start: 08-24-2023 End: 08-24-2023 ambulatory JR Gerson Gonzalez Work Phone: [facility] Work Phone: Start: 08-24-2023 End: 08-24-2023 Patient encounter procedure JR Gerson Gonzalez Work Phone: [facility] Work Phone: Start: 08-06-2023 End: 08-06-2023 ambulatory MICHAEL CRUZ Not Available Start: 06-24-2023 End: 06-24-2023 ambulatory Lexi Reid Facility:[facility] Start: 06-24-2023 End: 06-24-2023 Patient encounter procedure Lexi Reid [facility] Start: 04-10-2023 End: 04-10-2023 ambulatory ADINA ROSALES Facility:[facility] Start: 04-10-2023 End: 04-10-2023 Patient encounter procedure Adina Rosales MD Work Phone: Otolaryngology Comment on above: Facial paralysis (Pr imary Dx) Start: 11-26-2022 End: 11-26-2022 Patient encounter procedure Lexi Reid [facility] Start: 11-12-2022 End: 11-13-[address] ARMANDO HOLLINGSWORTH Facility: Start: 09-10-2022 ambulatory Elizabeth Hilliard MD Work Phone: [facility] Start: 09-10-2022 Patient encounter procedure Elizabeth Hilliard MD Work Phone: Facial Plastics/Reconstruction Comment on above: Botox Appointment Start: 07-23-2022 End: 07-23-2022 Patient encounter procedure Lexi Reid [facility] Start: 07-08-2022 End: 07-09-2022 ambulatory LEXI REID . Facility:[facility] Start: 06-05-2022 End: 06-06-[address] GERSON GONZALEZ Facility:[facility]1 Start: 05-16-2022 End: 05-16-2022 Patient encounter procedure Elizabeth Hilliard MD Work Phone: Facial Plastics/Reconstruction Comment on above: Facial nerve motor d isorder (Primary Dx) Start: 02-27-2022 End: 02-28-2022 ambulatory VINCENT BURCIAGA Facility:[facility]1 Start: 02-19-[address] GERSON GONZALEZ [facility] ity:H1 Start: 01-15-2022 End: 01-15-2022 Patient encounter procedure Lexi Reid [facility] Start: 12-25-2021 End: 12-26-2021 ambulatory ALHAJI TRUJILLO Facility:[facility]1 Start: 12-13-2021 End: 12-13-2021 Patient encounter procedure Elizabeth Hilliard MD Work Phone: Facial Plastics/Reconstruction Comment on above: Facial nerve spasm ( Primary Dx); Facial nerve motor disorder Start: 11-13-2021 Telephone encounter Shawna rothman MD, PhD Work Phone: Endocrinology Comment on above: Results Start: 11-12-2021 End: 11-12-2021 Patient encounter procedure Shawna Card MD, PhD Work Phone: Endocrinology Comment on above: Multiple thyroid nod ules (Primary Dx); Obesity, Class I, BMI 30-34.9; Vasomotor symptoms due to menopause Start: 11-23-2020 End: 11-23-2020 Patient encounter procedure Gerson Gonzalez Work Phone: [facility] Procedures Date Procedure Procedure Detail Performing Clinician Start: 11-03-2023 MRI of head JR Gerson Gonzalez Work Phone: Start: 11-23-2020 Screening mammograph y of bilateral breasts Gerson Gonzalez Work Phone: Start: 10-19-2003 Procedure on brain Nasreen Reid Ankle region structu re (body structure) Lexi Reid Procedure on eye Lexi Reid Plan of Treatment Date Care Activity Detail Author Start: 03-20-2023 Influenza vaccination Influenza Vacc ine (#1) [facility] Start: 07-20-2022 ADVANCE DIRECTIVE DISCUSSION ADVANCE DIRECTIVE DISCUSSION [facility] Start: 07-20-2022 DEPRESSION ASSESSMENT DEPRESSION ASS ESSMENT [facility] Start: 03-20-2022 Influenza vaccination [facility] Start: 10-31-2021 COVID-19 VACCINE (4 - Booster for Pfizer series) COVID-19 VACCINE (4 - Booster for Pfizer series) [facility] Start: 2021 ADVANCE DIRECTIVE DISCUSSION ADVANCE DIRECTIVE DISCUSSION [facility] Start: 2021 BONE DENSITY BONE DENSITY [facility] Start: 2021 Bone Density Screening Bone Density Screening [facility] Start: 2021 Pneumococcal Vaccine : 65+ (1 - PCV) Pneumococcal Vaccine: 65+ (1 - PCV) [facility] Start: 2021 PNEUMOCOCCAL: 65+ (1 - PCV) PNEUMOCOCCAL: 65+ (1 - PCV) [facility] Start: 2021 PNEUMOVAX AGE 65 AND OVER WITH 5YR LOOKBACK (#1) PNEUMOVAX AGE 65 AND OVER WITH 5YR LOOKBACK (#1) [facility] Start: 08-27-2021 COVID-19 VACCINE (4 - Booster for Pfizer series) COVID-19 VACCINE (4 - Booster for Pfizer series) [facility] Start: 08-27-2021 Covid-19 Vaccine (4 - Pfizer series) Covid-19 Vaccine (4 - Pfizer series) [facility] Start: 07-20-2021 DEPRESSION ASSESSMENT DEPRESSION ASS ESSMENT [facility] Start: 12-24-2012 DIABETES SCREEN DIABETES SCREEN [facility] Start: 12-24-2012 Diabetes Screening Diabetes Screenin g [facility] Start: 2006 SHINGRIX VACCINE (1 of 2) SHINGRIX V ACCINE (1 of 2) [facility] Start: 2001 COLOGUARD (FIT-DNA) COLOGUARD (FIT-D NA) [facility] Start: 2001 Colonoscopy COLONOSCOPY [facility] Start: 2001 COLORECTAL CANCER SCREENING COLORECTAL CANCER SCREENING [facility] Start: [address] COLONOGRAPHY [facility] Start: 2001 FECAL OCCULT BLOOD FECAL OCCULT BLOO D [facility] Start: 2001 Lipid 1996 panel - S john or Plasma Lipid Screening [facility] Start: 2001 LIPID SCREEN LIPID SCREEN [facility] Start: 2001 SIGMOIDOSCOPY SIGMOIDOSCOPY [facility] Start: 1996 Mammography [facility] Start: 09-24-1975 Urine microalbumin profile [facility] Start: 1974 HEPATITIS C SCREENING HEPATITIS C SC REENING [facility] Start: 1974 HIV SCREENING HIV SCREENING [facility] Start: 1968 Adult depression scr eening assessment DEPRESSION SCREENING [facility] [place] [facility] Immunizations Immunization Date Immunization Notes Care Provider Fa [facility] 07-02-2021 SARS-CoV-2 (COVID-19 ) mRNA BNT-162b2 vax Lexi Lue [facility] 01-08-2021 SARS-CoV-2 (COVID-19 ) mRNA BNT-162b2 vax Lexi Lue [facility] 10-08-2020 SARS-CoV-2 (COVID-19 ) mRNA BNT-162b2 vax Lexi Lue [facility] 07-20-2020 SARS-CoV-2 (COVID-19 ) mRNA BNT-162b2 vax Lexi Lue [facility] Payers Date Payer Category Payer Self-pay [id number] 2023 Unknown [id number] 2017 Private Health Insurance [employer] [id number] 2017-Present [phone] [address] [address] [place] [address] O [id number] 2017 Private Health Insurance [employer] [id number] 2017-Present [phone] [address] [address] [place] [address] O [id number] 2012 Unknown DENTAL DENTAL GE NERIC [id number] 2012-Present [phone] [address] [address] [place] [address] Dental [id number] 2005 Medicare MEDICARE MEDICAR E A AND B [id number] 2005-Present [phone] [place] [address] Medicare [id number] 2005 Medicare MEDICARE MEDICAR E A AND B [id number] 2005-Present [phone] [place] [address] Medicare [id number] 1959 Medicare [id number] 1959 Private Health Insurance [id number] 1956 Unknown [id number] [id number]. 593 1956 Unknown [id number] 2.16.840.1.999929.3.579.2. 593 1956 Unknown [id number] 2.16.840.1.166886.3.579.2. 593 1956 Unknown [id number] 2.16.840.1.092473.3.579.2. 593 1956 Unknown [id number] 2.16.840.1.401913.3.579.2. 593 1956 Unknown [id number] 2.16.840.1.093636.3.579.2. 593 1956 Unknown [id number] 2.16.840.1.094179.3.579.2. 727 1956 Unknown [id number] 2.16.840.1.966129.3.579.2. 727 1956 Unknown [id number] 2.16.840.1.151216.3.579.2. 1259 1956 Unknown [id number] 2.16.840.1.527064.3.579.2. 1259 1956 Unknown [id number] 2.16.840.1.307199.3.579.2. 1259 1956 Unknown [id number] 2.16.840.1.593639.3.579.2. 1259 1956 Unknown [id number] 2.16.840.1.047923.3.579.2. 1259 1956 Unknown [id number] 2.16.840.1.018314.3.579.2. 1259 1956 Unknown [id number] 2.16.840.1.747027.3.579.2. 1259 Medicare Self Pay [id number] Unknown [id number] Unknown [id number] [id number]. 531 Social History Date Type Detail Facility Tobacco smoking stat us [facility] Unknown if ever smoked [facility] Start: 1955 Sex Assigned At Female F [facility] Start: 09-18-2021 End: 06-24-2023 Tobacco smoking status NHIS Ex-smoker [facility] End: 07-20-1999 History of tobacco use Current smoker [facility] End: 07-20-1999 History of tobacco use Cigarette Smoker [facility] Start: 11-12-2021 End: 04-10-2023 Alcohol intake Current non-drinker of alcohol (finding) [facility] Start: 1955 Sex Assigned At Not on file [facility] Start: 11-02-2021 End: 05-16-2022 Exposure to SARS-CoV-2 (event) Not sure [facility] Start: 04-10-2023 [facility] At [facility] Start: 05-16-2022 End: 04-10-2023 Cigarettes smoked current (pack per day) - Reported 1.5 [facility] Start: 05-16-2022 Tobacco use and exposure Smokeless tobacco non-user [facility] National Score (1-10 0), lower number is lower risk 87 [facility] Start: 12-12-2021 Gender identity Identifies as female gender (finding) [facility] Medical Equipment Procedure Code Equipment Code Equipment Origin al Text Equipment Identifier Dates Tyree Marrero 1.0g - [id number] Start: 12-24-2009 Goals Date Patient Goal Desired Activity /State Functional Status Date Assessment Result Facility 06-24-2023 Functional Status N/A [facility] 11-26-2022 Functional Status N/A [facility] 07-23-2022 Functional Status N/A [facility] 06-29-2022 Functional Status N/A [facility] Jorge Clinical Notes 11-12-2021 to 10-09-2023 Macy Leyva RN - 04/10/2023 9:45 AM Adina Carter MD - 04/10/2023 9:30 AM Bernadette Lowery RN - 05/16/2022 1:36 PM Yamilex Hilliard MD - 05/16/2022 1:30 PM EDT Note Date & Type Note Facility 10-09-2023 Note HNO ID: [id number] Author: ADINA ROSALES MD Service: ? 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 Hilliard on 04/14/2016. HPI: Here today in follow up for routine botox injections. Doing well since last visit, really liked orbicular williams injections and wants more. 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 100u/1cc botox injected into: Left orbicularis oculi (2u, 3 sites) = 6 U Left lower pretarsal ( 2u, 2 site) = 4 units Left lateral pretarsal (5U, 1 site) = 5 units Left levator alaeque nasi (2u, 1site) = 2U Left nasalis (3U, 1 site)=3U Left TAMRA (3U 1 site)=3U Lateral to philtrum (2u, 4 sites) = 8 units Left depressor septi (2 units 1 site) = 2 U Left jogger operator (3u, 2 site) = 6 U Left procerus (3u, 1 site) = 3 U Left mentalis (2u, 3 sites) 6 U Left platysma (3u, 18 x sites) = 54 units Right TAMRA (3U 1 site)=3U Right jogger operator (2U, 2 sites) = 4U Right lateral orbicularis infrabrow= 2U, 1 site=2U Right platysma (3U [id number]) = 9 U Total: 120 units used (3 Units of botox discarded) Assessment: 66 year old female w/ a hx of facial paralysis and an 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 Here today for botox injections and procedure was tolerated well. Interested in lip AND nasolabial fold filler at next appt Plan: RTC in 3-4 months for repeat botox injections, sooner for filler. Quote sent Patient will send mychart, does not wish to schedule at this time Adina Rosales MD Facial Plastic and Reconstructive Surgery Fellow [facility], [facility] 06-24-2023 Hospital Discharg e instructions Patient Education 06/24/2023 08:16:54 Dietary Guidelines to Help Prevent Kidney Stones Dietary Guidelines to Help Prevent Kidney Stones Kidney stones are deposits of minerals and salts that form inside your kidneys. Your risk of developing kidney stones may be greater depending on your diet, your lifestyle, the medicines you take, and whether you have certain medical conditions. Most people can lower their risks of developing kidney stones by following these dietary guidelines. Your dietitian may give you more specific instructions depending on your overall health and the type of kidney stones you tend to develop. What are tips for following this plan? Reading food labels Choose foods with no salt added or low-salt labels. Limit your salt (sodium) intake to less than 1,500 mg a day. Choose foods with calcium for each meal and snack. Try to eat about 300 mg of calcium at each meal. Foods that contain 200 500 mg of calcium a serving include: ?8 oz (237 mL) of milk, mmqhpvz-kgandcpianpw-qkyph milk, and calcium-fortifiedfruit juice. Calcium-fortified means that calcium has been added to these drinks. ?8 oz (237 mL) of kefir, yogurt, and soy yogurt. ?4 oz (114 g) of tofu. ?1 oz (28 g) of cheese. ?1 cup (150 g) of dried figs. ?1 cup (91 g) of cooked broccoli. ?One 3 oz (85 g) can of sardines or mackerel. Most people need 1,000 1,500 mg of calcium a day. Talk to your dietitian about how much calcium is recommended for you. Shopping Buy plenty of fresh fruits and vegetables. Most people do not need to avoid fruits and vegetables, even if these foods contain nutrients that may contribute to kidney stones. When shopping for convenience foods, choose: ?Whole pieces of fruit. ?Pre-made salads with dressing on the side. ?Low-fat fruit and yogurt smoothies. Avoid buying frozen meals or prepared deli foods. These can be high in sodium. Look for foods with live cultures, such as yogurt and kefir. Choose high-fiber grains, such as whole-wheat breads, oat bran, and wheat cereals. Cooking Do not add salt to food when cooking. Place a salt shaker on the table and allow each person to add their own salt to taste. Use vegetable protein, such as beans, textured vegetable protein (TVP), or tofu, instead of meat in pasta, casseroles, and soups. Meal planning Eat less salt, if told by your dietitian. To do this: ?Avoid eating processed or pre-made food. ?Avoid eating fast food. Eat less animal protein, including cheese, meat, poultry, or fish, if told by your dietitian. To do this: ?Limit the number of times you have meat, poultry, fish, or cheese each week. Eat a diet free of meat at least 2 days a week. ?Eat only one serving each day of meat, poultry, fish, or seafood. ?When you prepare animal proteins, cut pieces into small portion sizes. For most meat and fish, one serving is about the size of the palm of your hand. Eat at least five servings of fresh fruits and vegetables each day. To do this: ?Keep fruits and vegetables on hand for snacks. ?Eat one piece of fruit or a handful of berries with breakfast. ?Have a salad and fruit at lunch. ?Have two kinds of vegetables at dinner. You may be told to limit foods that are high in a substance called oxalate. These include: ?Spinach (cooked), rhubarb, beets, sweet potatoes, and Belarusian chard. ?Peanuts. ?Potato chips, nepalese fries, and baked potatoes with skin on. ?Nuts and nut products. ?Chocolate. If you regularly take a diuretic medicine, make sure to eat at least 1 or 2 servings of fruits or vegetables that are high in potassium each day. These include: ?Avocado. ?Banana. ?[place], prune, carrot, or tomato juice. ?Baked potato. ?Cabbage. ?Beans and split peas. Lifestyle Drink enough fluid to keep your urine pale yellow. This is the most important thing you can do. Spread your fluid intake throughout the day. If you drink alcohol: ?Limit how much you have to: ?0 1 drink a day for women who are not . ?0 2 drinks a day for men. ?Know how much alcohol is in your drink. In the [place] one drink equals one 12 oz bottle of beer (355 mL), one 5 oz glass of wine (148 mL), or one 1 oz glass of hard liquor (44 mL). Lose weight if told by your health care provider. Work with your dietitian to find an eating plan and weight loss strategies that work best for you. General information Talk to your health care provider and dietitian about taking daily supplements. Depending on your health and the cause of your kidney stones, you may be told: ?Do not take high-dose supplements of vitamin C (1,000 mg a day or more). ?To take a calcium supplement. ?To take a daily probiotic supplement. ?To take other supplements such as magnesium, fish oil, or vitamin B6. Take kuta-ukg-qcoavcv and prescription medicines only as told by your health care provider. These include supplements. What foods should I limit? Limit your intake of the following foods, or eat them as told by your dietitian. Vegetables Spinach. Rhubarb. Beets. Canned vegetables. Pickles. Olives. Baked potatoes with skin. Grains Wheat bran. Baked goods. Salted crackers. Cereals high in sugar. Meats and other proteins Nuts. Nut butters. Large portions of meat, poultry, or fish. Salted, precooked, or cured meats, such as sausages, meat loaves, and hot dogs. Dairy Cheeses. Beverages Regular soft drinks. Regular vegetable juice. Seasonings and condiments Seasoning blends with salt. Salad dressings. Soy sauce. Ketchup. Barbecue sauce. Other foods Canned soups. Canned pasta sauce. Casseroles. Pizza. Lasagna. Frozen meals. Potato chips. Jordanian fries. The items listed above may not be a complete list of foods and beverages you should limit. Contact a dietitian for more information. What foods should I avoid? Talk to your dietitian about specific foods you should avoid based on the type of kidney stones you have and your overall health. Fruits Grapefruit. The item listed above may not be a complete list of foods and beverages you should avoid. Contact a dietitian for more information. Summary Kidney stones are deposits of minerals and salts that form inside your kidneys. You can lower your risk of kidney stones by making changes to your diet. The most important thing you can do is drink enough fluid. Drink enough fluid to keep your urine pale yellow. Talk to your dietitian about how much calcium you should have each day, and eat less salt and animal protein as told by your dietitian. This information is not intended to replace advice given to you by your health care provider. Make sure you discuss any questions you have with your health care provider. Document Revised: 10/16/2022 Document Reviewed: 10/16/2022 [employer] Patient Education 2022 [employer]. Follow Up Care 11/26/2022 08:11:41 With:Franklin FLOYD, Lexi Regalado, URL, [facility] Address: [address], [place] [phone] When: Unknown Comments:6 mos w/ KUB and CEASAR [facility] Jorge 04-10-2023 Note HNO ID: [id number] Author: Adina Rosales MD Service: ? 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 Hilliard on 04/14/2016. HPI: Here today in follow up for routine botox injections. Doing well since last visit but did not like impact on mouth, felt like upper lip was too rolled up. 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 - Significant asymmetry due to hyperdynamic function of all divisions of left facial nerve - Frontalis and orbicularis oculi, zygomaticus major, levator labii and jogger operator - Severe lateral pull of upper lip to left - related to midface muscles and hyperdynamic orbicularis williams - philtrum significantly canted EYE -Downward pull due to platysma, mentalis, depressor right eye closure complete, weight in good position -Lower lid position good Procedure note: Injection facial botox Technique: 100u/1cc botox injected into: Left orbicularis oculi (2u, 4 sites) = 8 U Left lower pretarsal ( 1u, 4 site) = 4 U Left levator alaeque nasi (2AND3u, 2site) = 5 U Lateral to philtrum (2u, 4 sites) = 8 U Left jogger operator (3u, 2 site) = 6 U Left procerus (3u, 1 site) = 3 U Left mentalis (3AND2u, 3 sites) 8 U Left platysma (3u, 16 x sites) = 48 units Total: 90 units used (10 Units of botox discarded) Assessment: 66 year old female w/ a hx of facial paralysis and an 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 Here today for botox injections and procedure was tolerated well. Interested in lip AND nasolabial fold filler at next appt Plan: RTC in 3-4 months for repeat botox injections, sooner for filler Patient will send mychart, does not wish to schedule at this time Adina Rosales MD Facial Plastic and Reconstructive Surgery Fellow [facility], [facility] 04-10-2023 Nurse Note Tobacco Use: 1.5 packs/day, for 18 years. Quit 07/20/1999. Types: Cigarettes Was smoking cessation packet given? N/A - Patient is a non-smoker or quit >1 year ago. 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 Hilliard on 04/14/2016. HPI: Here today in follow up for routine botox injections. Doing well since last visit but did not like impact on mouth, felt like upper lip was too rolled up. 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 - Significant asymmetry due to hyperdynamic function of all divisions of left facial nerve - Frontalis and orbicularis oculi, zygomaticus major, levator labii and jogger operator - Severe lateral pull of upper lip to left - related to midface muscles and hyperdynamic orbicularis williams - philtrum significantly canted EYE -Downward pull due to platysma, mentalis, depressor right eye closure complete, weight in good position -Lower lid position good Procedure note: Injection facial botox Technique: 100u/1cc botox injected into: Left orbicularis oculi (2u, 4 sites) = 8 U Left lower pretarsal ( 1u, 4 site) = 4 U Left levator alaeque nasi (2&3u, 2site) = 5 U Lateral to philtrum (2u, 4 sites) = 8 U Left jogger operator (3u, 2 site) = 6 U Left procerus (3u, 1 site) = 3 U Left mentalis (3&2u, 3 sites) 8 U Left platysma (3u, 16 x sites) = 48 units Total: 90 units used (10 Units of botox discarded) Assessment: 66 year old female w/ a hx of facial paralysis and an 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 Here today for botox injections and procedure was tolerated well. Interested in lip & nasolabial fold filler at next appt Plan: RTC in 3-4 months for repeat botox injections, sooner for filler Patient will send mychart, does not wish to schedule at this time Adina Rosales MD Facial Plastic and Reconstructive Surgery Fellow [facility], [facility] [place] documented in this encounter [facility] 11-26-2022 Hospital Discharg e instructions Patient Education 11/26/2022 08:10:02 Dietary Guidelines to Help Prevent Kidney Stones Dietary Guidelines to Help Prevent Kidney Stones Kidney stones are deposits of minerals and salts that form inside your kidneys. Your risk of developing kidney stones may be greater depending on your diet, your lifestyle, the medicines you take, and whether you have certain medical conditions. Most people can lower their chances of developing kidney stones by following the instructions below. Your dietitian may give you more specific instructions depending on your overall health and the type of kidney stones you tend to develop. What are tips for following this plan? Reading food labels Choose foods with no salt added or low-salt labels. Limit your salt (sodium) intake to less than 1,500 mg a day. Choose foods with calcium for each meal and snack. Try to eat about 300 mg of calcium at each meal. Foods that contain 200 500 mg of calcium a serving include: ?8 oz (237 mL) of milk, dzekgvr-qotwwkfdhiid-ujvsz milk, and calcium-fortifiedfruit juice. Calcium-fortified means that calcium has been added to these drinks. ?8 oz (237 mL) of kefir, yogurt, and soy yogurt. ?4 oz (114 g) of tofu. ?1 oz (28 g) of cheese. ?1 cup (150 g) of dried figs. ?1 cup (91 g) of cooked broccoli. ?One 3 oz (85 g) can of sardines or mackerel. Most people need 1,000 1,500 mg of calcium a day. Talk to your dietitian about how much calcium is recommended for you. Shopping Buy plenty of fresh fruits and vegetables. Most people do not need to avoid fruits and vegetables, even if these foods contain nutrients that may contribute to kidney stones. When shopping for convenience foods, choose: ?Whole pieces of fruit. ?Pre-made salads with dressing on the side. ?Low-fat fruit and yogurt smoothies. Avoid buying frozen meals or prepared deli foods. These can be high in sodium. Look for foods with live cultures, such as yogurt and kefir. Choose high-fiber grains, such as whole-wheat breads, oat bran, and wheat cereals. Cooking Do not add salt to food when cooking. Place a salt shaker on the table and allow each person to add his or her own salt to taste. Use vegetable protein, such as beans, textured vegetable protein (TVP), or tofu, instead of meat in pasta, casseroles, and soups. Meal planning Eat less salt, if told by your dietitian. To do this: ?Avoid eating processed or pre-made food. ?Avoid eating fast food. Eat less animal protein, including cheese, meat, poultry, or fish, if told by your dietitian. To do this: ?Limit the number of times you have meat, poultry, fish, or cheese each week. Eat a diet free of meat at least 2 days a week. ?Eat only one serving each day of meat, poultry, fish, or seafood. ?When you prepare animal protein, cut pieces into small portion sizes. For most meat and fish, one serving is about the size of the palm of your hand. Eat at least five servings of fresh fruits and vegetables each day. To do this: ?Keep fruits and vegetables on hand for snacks. ?Eat one piece of fruit or a handful of berries with breakfast. ?Have a salad and fruit at lunch. ?Have two kinds of vegetables at dinner. Limit foods that are high in a substance called oxalate. These include: ?Spinach (cooked), rhubarb, beets, sweet potatoes, and Belarusian chard. ?Peanuts. ?Potato chips, nepalese fries, and baked potatoes with skin on. ?Nuts and nut products. ?Chocolate. If you regularly take a diuretic medicine, make sure to eat at least 1 or 2 servings of fruits or vegetables that are high in potassium each day. These include: ?Avocado. ?Banana. ?[place], prune, carrot, or tomato juice. ?Baked potato. ?Cabbage. ?Beans and split peas. Lifestyle Drink enough fluid to keep your urine pale yellow. This is the most important thing you can do. Spread your fluid intake throughout the day. If you drink alcohol: ?Limit how much you use to: ?0 1 drink a day for women who are not . ?0 2 drinks a day for men. ?Be aware of how much alcohol is in your drink. In the [place] one drink equals one 12 oz bottle of beer (355 mL), one 5 oz glass of wine (148 mL), or one 1 oz glass of hard liquor (44 mL). Lose weight if told by your health care provider. Work with your dietitian to find an eating plan and weight loss strategies that work best for you. General information Talk to your health care provider and dietitian about taking daily supplements. You may be told the following depending on your health and the cause of your kidney stones: ?Not to take supplements with vitamin C. ?To take a calcium supplement. ?To take a daily probiotic supplement. ?To take other supplements such as magnesium, fish oil, or vitamin B6. Take escu-swo-bvjcvgc and prescription medicines only as told by your health care provider. These include supplements. What foods should I limit? Limit your intake of the following foods, or eat them as told by your dietitian. Vegetables Spinach. Rhubarb. Beets. Canned vegetables. Pickles. Olives. Baked potatoes with skin. Grains Wheat bran. Baked goods. Salted crackers. Cereals high in sugar. Meats and other proteins Nuts. Nut butters. Large portions of meat, poultry, or fish. Salted, precooked, or cured meats, such as sausages, meat loaves, and hot dogs. Dairy Cheese. Beverages Regular soft drinks. Regular vegetable juice. Seasonings and condiments Seasoning blends with salt. Salad dressings. Soy sauce. Ketchup. Barbecue sauce. Other foods Canned soups. Canned pasta sauce. Casseroles. Pizza. Lasagna. Frozen meals. Potato chips. Jordanian fries. The items listed above may not be a complete list of foods and beverages you should limit. Contact a dietitian for more information. What foods should I avoid? Talk to your dietitian about specific foods you should avoid based on the type of kidney stones you have and your overall health. Fruits Grapefruit. The item listed above may not be a complete list of foods and beverages you should avoid. Contact a dietitian for more information. Summary Kidney stones are deposits of minerals and salts that form inside your kidneys. You can lower your risk of kidney stones by making changes to your diet. The most important thing you can do is drink enough fluid. Drink enough fluid to keep your urine pale yellow. Talk to your dietitian about how much calcium you should have each day, and eat less salt and animal protein as told by your dietitian. This information is not intended to replace advice given to you by your health care provider. Make sure you discuss any questions you have with your health care provider. Document Revised: 03/17/2022 Document Reviewed: 03/17/2022 Thryve Patient Education 2022 [employer]. Follow Up Care 07/23/2022 11:38:48 With:Franklin FLOYD, Lexi Regalado, URL, URO Address: When: Unknown [facility] Jorge 07-23-2022 Hospital Discharg e instructions Patient Education 07/23/2022 11:37:41 Kidney Stones, Qafk-xb-Uosd Kidney Stones Kidney stones are rock-like masses that form inside of the kidneys. Kidneys are organs that make pee (urine). A kidney stone may move into other parts of the urinary tract, including: The tubes that connect the kidneys to the bladder (ureters). The bladder. The tube that carries urine out of the body (urethra). Kidney stones can cause very bad pain and can block the flow of pee. The stone usually leaves your body (passes) through your pee. You may need to have a doctor take out the stone. What are the causes? Kidney stones may be caused by: A condition in which certain glands make too much parathyroid hormone (primary hyperparathyroidism). A buildup of a type of crystals in the bladder made of a chemical called uric acid. The body makes uric acid when you eat certain foods. Narrowing (stricture) of one or both of the ureters. A kidney blockage that you were born with. Past surgery on the kidney or the ureters, such as gastric bypass surgery. What increases the risk? You are more likely to develop this condition if: You have had a kidney stone in the past. You have a family history of kidney stones. You do not drink enough water. You eat a diet that is high in protein, salt (sodium), or sugar. You are overweight or very overweight (obese). What are the signs or symptoms? Symptoms of a kidney stone may include: Pain in the side of the belly, right below the ribs (flank pain). Pain usually spreads (radiates) to the groin. Needing to pee often or right away (urgently). Pain when going pee (urinating). Blood in your pee (hematuria). Feeling like you may vomit (nauseous). Vomiting. Fever and chills. How is this treated? Treatment depends on the size, location, and makeup of the kidney stones. The stones will often pass out of the body through peeing. You may need to: Drink more fluid to help pass the stone. In some cases, you may be given fluids through an IV tube put into one of your veins at the hospital. Take medicine for pain. Make changes in your diet to help keep kidney stones from coming back. Sometimes, medical procedures are needed to remove a kidney stone. This may involve: A procedure to break up kidney stones using a beam of light (laser) or shock waves. Surgery to remove the kidney stones. Follow these instructions at home: Medicines Take zykg-ily-iqfkwtf and prescription medicines only as told by your doctor. Ask your doctor if the medicine prescribed to you requires you to avoid driving or using heavy machinery. Eating and drinking Drink enough fluid to keep your pee pale yellow. You may be told to drink at least 8 10 glasses of water each day. This will help you pass the stone. If told by your doctor, change your diet. This may include: ?Limiting how much salt you eat. ?Eating more fruits and vegetables. ?Limiting how much meat, poultry, fish, and eggs you eat. Follow instructions from your doctor about eating or drinking restrictions. General instructions Collect pee samples as told by your doctor. You may need to collect a pee sample: ?24 hours after a stone comes out. ?8 12 weeks after a stone comes out, and every 6 12 months after that. Strain your pee every time you pee (urinate), for as long as told. Use the strainer that your doctor recommends. Do not throw out the stone. Keep it so that it can be tested by your doctor. Keep all follow-up visits as told by your doctor. This is important. You may need follow-up tests. How is this prevented? To prevent another kidney stone: Drink enough fluid to keep your pee pale yellow. This is the best way to prevent kidney stones. Eat healthy foods. Avoid certain foods as told by your doctor. You may be told to eat less protein. Stay at a healthy weight. Where to find more information National Kidney Foundation (NKF): www.kidney.org Urology Care Foundation (UCF): www.urologyhealth.org Contact a doctor if: You have pain that gets worse or does not get better with medicine. Get help right away if: You have a fever or chills. You get very bad pain. You get new pain in your belly (abdomen). You pass out (faint). You cannot pee. Summary Kidney stones are rock-like masses that form inside of the kidneys. Kidney stones can cause very bad pain and can block the flow of pee. The stones will often pass out of the body through peeing. Drink enough fluid to keep your pee pale yellow. This information is not intended to replace advice given to you by your health care provider. Make sure you discuss any questions you have with your health care provider. Document Released: 12/22/2008 Document Revised: 11/22/2019 Document Reviewed: 11/22/2019 Thryve Patient Education 2019 [employer]. 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 Hilliard on 04/14/2016. HPI: Here today in follow up for routine botox injections. Doing well since last visit w/ chief complaints regarding lip movement. Wishes for no changes to injection sites at this time. 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, mentalis, depressor right eye closure complete, weight in good position -Lower lid position good Procedure note: Injection facial botox Technique: 100u of 100u/1cc botox (with 0 U discarded) injected into: Left orbicularis oculi (3u, 2 sites) = 6 U Left lower pretarsal ( 2u, 2 site) = 4 U Left levator alaeque nasi (2u, 2site) = 4 U Left lateral orbicularis leavator junction (3u, 1 site) = 3 U Left upper lip near alar base (2u, 2 site) = 4 U Left levator labii (1 site 3 unit(s)) = 3 U Lateral to philtrum (2u, 2 sites) = 4 U Left frontalis (2u, 4 site) = 8 u Left jogger operator (3u, 2 site) = 6 U Left procerus (3u, 1 site) = 3 U Left platysma (3u, 14 x sites) = 42 U Left TAMRA (3u, 1 site) = 3 U Left Risorius (3u, 2 sites) = 6 U Left mentalis (3u, 1site) = 3 U Total: 100 units used (0 Units of botox discarded) Assessment: 66 year old female w/ a hx of facial paralysis and an 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 Here today for botox injections and procedure was tolerated well. Willing to perform facial suspension if interest is expressed in the future. Plan: RTC -3 months for repeat botox injections Elizabeth Hilliard MD [facility] [employer], Facial Plastic and Microvascular Surgery By signing my name below, I, Adrian Sepulveda, attest that this documentation has been prepared under the direction and in the presence of Dr. Elizabeth Hilliard. Electronically signed, Esteban Middleton May 16, 2022 2:59 PM I have reviewed and edited above documentation and it accurately reflects assessment, work and decisions made by me. Elizabeth Hilliard MD [facility] [employer], Facial Plastic and Microvascular Surgery UNIVERSAL PROTOCOL / SAFETY CHECKLIST Procedure to be Performed: Facial Botox Injections Sign In: A Moment of CARE was completed. Personnel directly involved with the procedure wore the appropriate PPE (Personal Protective Equipment). No special equipment needed. Patient/Surrogate Stated/Verified: PATIENT VERIFIED(optional for EMERGENT procedures): Patient name, Date of , Relevant allergies, and The intended procedure Time Out Communication: Intended patient and procedure match the source documents. Consent documented and matches the intended procedure. No relevant labs, photos, and/or imaging studies were applicable for review. Correct side/site marked and visible. Medications required for procedure verified. No fire risk assessment and interventions applicable. No implant(s) inserted. Sign Out: SIGN OUT (optional for EMERGENT procedures): No specimen collected. No instruments, equipment or retained foreign bodies applicable. Post-procedure follow-up management communicated and Plan of Care Visit completed when applicable. Elizabeth Hilliard MD documented in this encounter [facility] 05-16-2022 Nurse Note Tobacco Use: 1.5 packs/day, for 18 years. Quit 07/20/1999. Types: Cigarettes Was smoking cessation packet given? N/A - Patient is a non-smoker or quit >1 year ago. Was a referral initiated?N/A Patient is a non-smoker documented in this encounter [facility] 01-15-2022 Hospital Discharg e instructions Patient Education 01/15/2022 10:39:00 Kidney Stones, Kxui-yf-Twnt Kidney Stones Kidney stones are rock-like masses that form inside of the kidneys. Kidneys are organs that make pee (urine). A kidney stone may move into other parts of the urinary tract, including: The tubes that connect the kidneys to the bladder (ureters). The bladder. The tube that carries urine out of the body (urethra). Kidney stones can cause very bad pain and can block the flow of pee. The stone usually leaves your body (passes) through your pee. You may need to have a doctor take out the stone. What are the causes? Kidney stones may be caused by: A condition in which certain glands make too much parathyroid hormone (primary hyperparathyroidism). A buildup of a type of crystals in the bladder made of a chemical called uric acid. The body makes uric acid when you eat certain foods. Narrowing (stricture) of one or both of the ureters. A kidney blockage that you were born with. Past surgery on the kidney or the ureters, such as gastric bypass surgery. What increases the risk? You are more likely to develop this condition if: You have had a kidney stone in the past. You have a family history of kidney stones. You do not drink enough water. You eat a diet that is high in protein, salt (sodium), or sugar. You are overweight or very overweight (obese). What are the signs or symptoms? Symptoms of a kidney stone may include: Pain in the side of the belly, right below the ribs (flank pain). Pain usually spreads (radiates) to the groin. Needing to pee often or right away (urgently). Pain when going pee (urinating). Blood in your pee (hematuria). Feeling like you may vomit (nauseous). Vomiting. Fever and chills. How is this treated? Treatment depends on the size, location, and makeup of the kidney stones. The stones will often pass out of the body through peeing. You may need to: Drink more fluid to help pass the stone. In some cases, you may be given fluids through an IV tube put into one of your veins at the hospital. Take medicine for pain. Make changes in your diet to help keep kidney stones from coming back. Sometimes, medical procedures are needed to remove a kidney stone. This may involve: A procedure to break up kidney stones using a beam of light (laser) or shock waves. Surgery to remove the kidney stones. Follow these instructions at home: Medicines Take euxi-eei-envdysb and prescription medicines only as told by your doctor. Ask your doctor if the medicine prescribed to you requires you to avoid driving or using heavy machinery. Eating and drinking Drink enough fluid to keep your pee pale yellow. You may be told to drink at least 8 10 glasses of water each day. This will help you pass the stone. If told by your doctor, change your diet. This may include: ?Limiting how much salt you eat. ?Eating more fruits and vegetables. ?Limiting how much meat, poultry, fish, and eggs you eat. Follow instructions from your doctor about eating or drinking restrictions. General instructions Collect pee samples as told by your doctor. You may need to collect a pee sample: ?24 hours after a stone comes out. ?8 12 weeks after a stone comes out, and every 6 12 months after that. Strain your pee every time you pee (urinate), for as long as told. Use the strainer that your doctor recommends. Do not throw out the stone. Keep it so that it can be tested by your doctor. Keep all follow-up visits as told by your doctor. This is important. You may need follow-up tests. How is this prevented? To prevent another kidney stone: Drink enough fluid to keep your pee pale yellow. This is the best way to prevent kidney stones. Eat healthy foods. Avoid certain foods as told by your doctor. You may be told to eat less protein. Stay at a healthy weight. Where to find more information National Kidney Foundation (NKF): www.kidney.org Urology Care Foundation (UCF): www.urologyhealth.org Contact a doctor if: You have pain that gets worse or does not get better with medicine. Get help right away if: You have a fever or chills. You get very bad pain. You get new pain in your belly (abdomen). You pass out (faint). You cannot pee. Summary Kidney stones are rock-like masses that form inside of the kidneys. Kidney stones can cause very bad pain and can block the flow of pee. The stones will often pass out of the body through peeing. Drink enough fluid to keep your pee pale yellow. This information is not intended to replace advice given to you by your health care provider. Make sure you discuss any questions you have with your health care provider. Document Released: 12/22/2008 Document Revised: 11/22/2019 Document Reviewed: 11/22/2019 Thryve Patient Education 2020 [employer]. Follow Up Care 09/18/2021 11:24:57 With:Franklin FLOYD, BUDDY Garcia, [facility] Address: [address], [place] [address]- [phone] When:07/17/2022 Comments:CONCETTA MCDONOUGH [facility] 06-08-2022 Note PROCEDURE: XR FOOT R T MIN 3 VIEWS COMPARISON: 02/06/2021 HISTORY: Pain in right foot FINDINGS: BONES:No acute fracture or dislocation. Moderate enthesopathic spurring of the calcaneus. Stable corticated calcific density lateral to the cuboid SOFT TISSUES:Negative. No visible soft tissue swelling. EFFUSION:None visible. OTHER: Negative. IMPRESSION: No acute fracture Electronically authenticated by: ARMANDO HOLLINGSWORTH Date: 2021-12-25 16:[address] 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 Hilliard on 04/14/2016. HPI: Here today in follow up regarding facial paralysis. She was very pleased with last set on injections, but notes right eye closure after last visit. She also notes tightness in her right jaw limiting her opening, has somewhat resolved in last couple weeks. Exam: right facial paralysis with minimal voluntary movement and spontaneous spasm significant asymmetry due to hyperdynamic function of all divisions of left facial nerve - frontalis and orbicularis oculi, zygomaticus major, levator labii and jogger operator severe lateral pull of upper lip to left - related to midface muscles and hyperdynamic orbicularis williams - philtrum significantly canted downward pull due to platysma, mentalis, depressor right eye closure complete, weight in good position. lower lid position good. Procedure note: Injection facial botox Technique: 94 u of 100u/1cc botox (with 6 U discarded) injected into left orbicularis oculi (3u, 2 sites) = 6 U left lower pretarsal ( 2u, 2 site) = 4 U Left levator alaeque nasi (2u, 2site) = 4 U left lateral orbicularis leavator junction (3u, 1 site) = 3 U left upper lip near alar base (2u, 2 site) = 4 U Left levator labii (1 site 3 unit(s)) = 3 U Lateral to philtrum (2u, 2 sites) = 4 U left jogger operator (3u, 2 site) = 6 U left procerus (3u, 1 site) = 3 U left platysma (3u, 12 x sites) = 36U Left TAMRA (3u, 1 site) = 3 U Left Risorius (3u, 2 sites) = 6units right mentalis (3u, 2 site) = 6 U 6 Units of botox discarded. Assessment: Botox injected today, patient tolerated injections well. Patient is candidate for platysmal myectomy Plan: RTC - 3 months for repeat botox injections By signing my name below, I, Hans Dunbar, attest that this documentation has been prepared under the direction and in the presence of Dr. Hilliard Electronically signed, Esteban Sesay December 13, 2021 1:29 PM I have reviewed and edited above documentation and it accurately reflects assessment, work and decisions made by me. Elizabeth Hilliard MD [facility] Head and Neck Solar Hot Water Installer, Facial Plastic and Microvascular Surgery Procedure: Botox Injections Informed Consent Consent Obtained: Written [place] Protocol A moment to CARE was completed SIGN IN Personnel directly involved with the procedure wore the appropriate PPE Special Equipment: N/A Patient/Surrogate Stated/Verified: Patient name, Date of , Relevant allergies and Intended procedure TIME OUT Intended patient and procedure match the source document(s) Consent documented and matches the intended procedure No relevant labs, photos, and/or imaging studies were applicable for review. Correct side/site marked and visible. Medications required for procedure verified. No fire risk assessment and interventions applicable. No implant(s) inserted. SIGN OUT No specimen collected. No instruments, equipment or retained foreign bodies applicable. Post-procedure follow-up management communicated and Plan of Care Visit completed when applicable documented in this encounter [facility] 11-19-2021 Miscellaneous Notes Notified pt of message, expressed understanding. Attempted to call patient, voicemail box has not been set up yet. Please try again later. Thyroid level is within normal. No thyroid medication needed. Patient had labs drawn after recent visit, please advise results. Component Latest Ref Rng & Units 03/02/2021 06/29/2021 11/12/2021 TSH 0.270 - 4.200 mIU/L 2.21 1.47 2.420 Free T4 0.9 - 1.7 ng/dL 1.0 documented in this encounter [facility] 11-12-2021 History of Presen t illness Narrative Ms. Saravia is here today at the request of SELF for my opinion regarding thyroid problem Reason for visit: thyroid nodules Previous laboratory results: TSH Date Value 06/29/2021 1.47 IU/ml 03/02/2021 2.21 IU/ml 08/03/2018 1.630 uU/mL Free T4 (ng/dL) Date Value 08/03/2018 1.2 Free T3 (pg/mL) Date Value 08/03/2018 3.5 Microsomal Antibody (IU/mL) Date Value 08/03/2018 3.5 Thyroglobulin Ab (IU/mL) Date Value 08/03/2018 4.3 HPI: Ofe Saravia is a 66 year old female who is presenting today for re-evaluation for a Thyroid problem. She had FNA in 04/2018 of left lobe thyroid nodules which showed AUS. FNA in 05/2018 of right and left lobe nodules showed: A. THYROID, LEFT LOBE, FINE NEEDLE ASPIRATE(THINPREP, SMEARS, CELL BLOCK) Benign. Benign follicular cells, hurthle cell change, and lymphocytes suggestive of chronic lymphocytic thyroiditis. B. THYROID, RIGHT LOBE, FINE NEEDLE ASPIRATE(THINPREP, SMEARS AND CELL BLOCK) Benign. Benign follicular cells, scant colloid. She recently had a follow up thyroid US (images are not available). reports suggest left lobe nodule has enlarged from 3.6 to 4.5 cm in widest dimension. She reports fatigue, intermittent hot flashes, heart intolerance, intermittent anxiety/panic attacks, and intermittent palpitations. 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 She was on T4 Rx for about 5 months then was told to stop because she didn't need it. Neck pressure symptoms. No H/O exposure to ionizing radiation to the head and neck. No H/O Thyroid cancer in one or more first degree relatives. No H/O Prior Thyroid surgery. No Review of Systems Constitutional: Positive for fatigue and recent unintentional weight change. Negative for night sweats. HENT: Positive for trouble swallowing, postnasal drip and thyroid pain (lower neck). Eyes: Positive for visual disturbance. Respiratory: Negative for difficulty breathing. Cardiovascular: Negative for chest pain, leg swelling and claudication. Gastrointestinal: Positive for constipation. Negative for heartburn, nausea, vomiting, abdominal pain and diarrhea. Genitourinary: Positive for amenorrhea. Negative for urgency, frequent urination and slower stream. Musculoskeletal: Positive for myalgias and muscle weakness. Negative for bone pain. Skin: Negative for skin color change. Neurological: Positive for dizziness and numbness. Negative for headaches. Endo/Heme/Allergies: Positive for cold intolerance when others are comfortable, heat intolerance when others are comfortable, hot flashes, flushing and changes in body hair. Negative for polydipsia. 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 FAMILY HISTORY Problem Relation Age of Onset Arthritis Mother Hypertension Mother Lipids Mother Thyroid Mother Cataract Mother Alcohol/Drug Father Arthritis Sister Hypertension Sister Lipids Sister Thyroid Sister Coronary Artery Disease Brother Cancer Maternal Grandmother Thyroid Paternal Grandmother Glaucoma No Family History Detached Retina No Family History Macular Degen No Family History Blindness No Family History Amblyopia No Family History No family history of thyroid cancer or other neuroendocrine tumors. Current Outpatient Medications Medication Sig pravastatin (PRAVACHOL) 10 mg tablet Take 10 mg by mouth once daily. FLUoxetine (PROZAC) 10 mg capsule Take 10 mg by mouth once daily. ezetimibe (ZETIA) 10 mg tablet Take 10 mg by mouth once daily. propranolol (INDERAL) 20 mg tablet as needed. acetylcysteine in water/PF (ACETYLCYSTEINE, PF, IN WATER) 10 % drop Use 1 Drop in the right eye three times daily. vitamin b complex tab Take 1 tablet by mouth once daily. Zinc 50 mg tab Take by mouth. ASCORBIC ACID (VITAMIN C ORAL) Take by mouth. gabapentin (NEURONTIN) 300 mg capsule Take 1 pill three times a day Magnesium Oxide-Mg Amino Acid Chelate (MAGNESIUM) 300 mg cap Take 300 mg by mouth daily at bedtime. CHOLECALCIFEROL (VITAMIN D3) 2,000 UNIT CAP Take one(1) tablet daily. No current facility-administered medications for this visit. Physical Exam BP 128/74 (BP Site: Left Arm, BP Position: Sitting, BP Cuff Size: Regular Adult) Pulse 64 Ht 175.3 cm (5' 9 ) Wt 98.9 kg (218 lb) LMP 05/24/2007 BMI 32.19 kg/m Body mass index is 32.19 kg/m . APPEARANCE: Well appearing, alert, in no acute distress, well-hydrated, well nourished. THYROID ~ 35 gms, left > rt lobe EXTREMITIES No deformities, No skin discoloration and No edema NEURO Awake, alert and oriented x 3 SKIN color, texture, turgor normal, no rashes or lesions Impression and Recommendations: (E04.2) Multiple thyroid nodules (primary encounter diagnosis) Plan: Follow up thyroid US in 1-2 years TSH BLD, T4 FREE/FREE THYROX (N95.1) Vasomotor symptoms due to menopause (E66.9) Obesity, Class I, BMI 30-34.9 Plan: CONSULT TO [facility] Shawna Card MD, PhD documented in this encounter [facility] Evaluation + Plan note Future Appointments Appointment Date:07/23/2022 10:00:00 AM Scheduled Provider:Lexi Reid MD Location:[facility] Appointment Type:URO Office Visit [facility] Evaluation + Plan note Future Appointments Appointment Date:10/29/2022 10:15:00 AM Scheduled Provider:Lexi Reid MD Location:[facility] Appointment Type:URO Office Visit [facility] Evaluation + Plan note Future Appointments Appointment Date:06/24/2023 08:00:00 AM Scheduled Provider:Lexi Reid MD Location:[facility] Appointment Type:URO Office Visit [facility] Evaluation + Plan note Future Appointments Appointment Date:01/06/2024 09:00:00 AM Scheduled Provider:Lexi Reid MD Location:[facility] Appointment Type:URO Office Visit [facility] Evaluation note No Assessments Infor mation Available [facility] Evaluation note Diagnosis Multiple thyroid nodules- Primary Nontoxic multinodular goiter Obesity, Class I, BMI 30-34.9 Obesity, unspecified Vasomotor symptoms due to menopause documented in this encounter [facility] Diagnosis 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 Facial nerve disorder, unspecified documented [facility] this encounter [facility] Diagnosis Facial nerve motor disorder- Primary Facial nerve disorder, unspecified documented [facility] this encounter [facility] Diagnosis 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 [facility] noteNo assessment information availableF[facility] Work Phone: Hospital course Narrative No data available for this section [facility] progress note No data available for this section [facility] Advance Directives No Advanced Directives Records Found Advance Directive Response Recorded Date/ Time Advance Directives No May 2:55pm Documents on File Type Date Recorded 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 Advance Directive(s) 06/24/2019 7:51 AM Advance Directive(s) 06/01/2018 7:17 AM Advance Directive(s) 05/27/2018 1:38 PM Advance Directive(s) 12/12/2009 8:53 PM Documents on File Type Date Recorded 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 Advance Directive(s) 06/24/2019 7:51 AM Advance Directive(s) 06/01/2018 7:17 AM Advance Directive(s) 05/27/2018 1:38 PM Advance Directive(s) 12/12/2009 8:53 PM Documents on File Type Date Recorded 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 60-74 MINUTES Shawna Card MD, PhD [address] [place] [address] Vicki Kiser MD [address] [place] [address] Referral ID Status Reason Start Date Expiration Date Visits Requested Visits Authorized [id number] Authorized PCP Requested Referral Auto-Generate d Referral 11/12/2021 11/12/2022 1 1 Medications Administered Section Inactive Administered Medications - up to 3 most recent administrations Medication Order MAR Action Action Date Dose Rate Site onabotulinum toxin type A 94 Units injection (BOTOX) 94 Units, INTRAMUSCULAR, ONCE (UP TO 30 DAYS AMB), 1 dose, On 01/19/22 at 0900, This record documents the total dose provided to patient. See progress note for specific locations and amounts administered. REFRIGERATE - Pharmaceutical Waste: Lab Pack - Given 01/19/2022 8:30 AM EDT 94 Units Face Inactive Administered Medications - up to 3 most recent administrations Medication Order MAR Action Action Date Dose Rate Site onabotulinum toxin type A 100 Units injection (BOTOX) 100 Units, INTRAMUSCULAR, ONCE (UP TO 30 DAYS AMB), 1 dose, On 06/01/22 at 1100, This record documents the total dose provided to patient. See progress note for specific locations and amounts administered. REFRIGERATE - Pharmaceutical Waste: Lab Pack - Given 06/01/2022 10:32 AM EST 100 Units Face Summary Purpose Family History No Family History Records Found No data available for this section No Family History Records FoundNo Family History Records FoundNo Family History Records FoundNo Family History Records Found Additional Source Comments Source Comments (unrecognize d section and content) In the event this informatio n is protected by the Federal Confidentiality of Alcohol and Drug Abuse Patient Records regulations: The Federal rules restrict any use of the information to criminally investigate or prosecute any alcohol or drug abuse patient.[facility] the event this information is protected by the Federal Confidentiality of Alcohol and Drug Abuse Patient Records regulations: The Federal rules restrict any use of the information to criminally investigate or prosecute any alcohol or drug abuse patient.[facility] Hospital[facility] the event this information is protected by the Federal Confidentiality of Alcohol and Drug Abuse Patient Records regulations: The Federal rules restrict any use of the information to criminally investigate or prosecute any alcohol or drug abuse patient.[facility] Hospital[facility] the event this information is protected by the Federal Confidentiality of Alcohol and Drug Abuse Patient Records regulations: The Federal rules restrict any use of the information to criminally investigate or prosecute any alcohol or drug abuse patient.[facility] Hospital[facility] the event this information is protected by the Federal Confidentiality of Alcohol and Drug Abuse Patient Records regulations: The Federal rules restrict any use of the information to criminally investigate or prosecute any alcohol or drug abuse patient.[facility] HospitalIn the event this information is protected by the Federal Confidentiality of Alcohol and Drug Abuse Patient Records regulations: The Federal rules restrict any use of the information to criminally investigate or prosecute any alcohol or drug abuse patient.[facility] Reason for Visit (unrecogniz ed section and content) Reason Comments Facial nerve spasm Facial nerve spasm, Botox Specialty Diagnoses / Procedures Referred By Contact Referred To Contact Ent - Otolaryngology / ENT-FACIAL PLASTICS Diagnoses 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, unspecified Alcala's palsy Repeat medical botox injections Procedures BOTULINUM TOXIN A PER 1 UNIT [facility] NRV UNIL RENEWAL REQUEST INJECTABLE (100 UNITS EVERY 3-4 MONTHS FOR 1 YR) [place] [address] [place] [address] Elizabeth Hilliard MD [address] [place] [address] Referral ID Status Reason Start Date Expiration Date V isits Requested Visits Authorized [id number] Authorized 12/13/2021 10/24/2022 99 99 Reason Comments Thyroid Problem Reason Comments Results Reason Comments Botox Injection Referral ID Status Reason Start Date Expiration Date V isits Requested Visits Authorized [id number] Pending Review 12/13/2021 12/12/2022 4 4 Reason Comments Follow Up Botox Specialty Diagnoses / Procedures Referred By Contac t Referred To Contact ENT-OTOLARYNGOLOGY 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 Renewal medical botox Procedures [facility] INNERVATED FACIAL NRV UNIL BOTULINUM TOXIN A PER 1 UNIT Med botox 100 units every 3-4 months for 1 year Elizabeth Hilliard MD [address] [place] [address] Elizabeth Hilliard MD [address] [place] [address] Referral ID Status Reason Start Date Expiration Date V isits Requested Visits Authorized [id number] Authorized 04/01/2023 03/31/2024 99 99 Care Teams (unrecognized sec tion and content) Research Program Intern Relationship Specialty Start Date End Date Gerson Gonzalez Jr. [address] [address] PCP - General 08/24/01 Research Program Intern Relationship Specialty Start Date End Date Gerson Gonzalez Jr. [address] [place] [address] PCP - General 08/24/01 Research Program Intern Relationship Specialty Start Date End Date Gerson Gonzalez Jr. [address] [place] [address] PCP - General 08/24/01 Research Program Intern Relationship Specialty Start Date End Date Gerson Gonzalez Jr. [address] [place] [address] PCP - General 08/24/01 Research Program Intern Relationship Specialty Start Date End Date Gerson Gonzalez Jr. [address] [place] [address] PCP - General 08/24/01 Research Program Intern Relationship Specialty Start Date End Date Gerson Gonzalez Jr. [address] [place] [address] PCP - General 08/24/01 Team Status: Active Member Role Status Dates Gerson Gonzalez JR DO Primary Care Provider Active Team Status: Inactive Member Role Status Dates Gerson Gonzalez JR DO Primary Care Provider Active Start: August 24, 2023 End: August 24, 2023 Vilma Wade PA-C Attending Provider Active Sta rt: August 24, 2023 End: August 24, 2023 Team Status: Inactive Member Role Status Dates Gerson Gonzalez JR DO Primary Care Provider Active Start: November 03, 2023 End: November 03, 2023 Vilma Wade PA-C Attending Provider Active Sta rt: November 03, 2023 End: November 03, 2023 INFORMATION SOURCE (unrecogn ized section and content) DATE CREATED AUTHOR 11/15/2022 [facility] DATE CREATED AUTHOR AUTHOR'S ORGANIZ ATION 10/18/2023 [facility] DATE CREATED AUTHOR AUTHOR'S ORGANIZ ATION 11/07/2023 [facility] DATE CREATED AUTHOR AUTHOR'S ORGANIZ ATION 01/01/2024 [facility] DATE CREATED AUTHOR AUTHOR'S ORGANIZ ATION 02/03/2024 [facility] Goals (unrecognized section and content) Goals may be documented in a n alternate section FOR RECORDS PERTAINING TO PATIENTS WHO ARE OR HAVE BEEN ENROLLED IN A CHEMICAL DEPENDENCY/SUBSTANCEABUSE PROGRAM, SOME INFORMATION MAY BE OMITTED. This clinical summary was aggregated from multiple sources. Caution should be exercised in using it in the provision of clinical care. This summary normalizes information from multiple sources, and as a consequence, information in this document may materially change the coding, format and clinical context of patient data. In addition, data may be omitted in some cases. CLINICAL DECISIONS SHOULD BE BASED ON THE PRIMARY CLINICAL RECORDS. [facility] [employer] provides no warranty or guarantee of the accuracy or completeness of information in this document.
[2024-02-17 08:45] LABS: Basophils Percent Auto 0.5 % (0.2-2.0); Eosinophils Absolute Auto 0.2 10^3/uL (0.0-0.7); Eosinophils Percent Auto 2.7 % (0.9-7.0); Hematocrit 41.9 % (36.0-48.0); Hemoglobin 13.8 g/dL (12.0-16.0); Lymphocytes Absolute Auto 1.7 10^3/uL (1.2-3.8); Lymphocytes Percent Auto 30.1 % (20.5-60.0); Mean Corpuscular HGB Conc 32.9 g/dL (29.9-35.2); Mean Corpuscular Hemoglobin 32.3 pg (26.7-34.0); Mean Corpuscular Volume 98.1 fL (81.0-99.0); Monocytes Absolute Auto 0.6 10^3/uL (0.3-0.8); Neutrophils Absolute Auto 3.1 10^3/uL (1.4-6.5); Neutrophils Percent Auto 56.7 % (43.0-75.0); Platelet Count 234 10^3/uL (150-450); Red Blood Count 4.27 10^6/uL (4.20-5.40); Red Cell Distribution Width 12.8 % (11.0-15.0); White Blood Count 5.5 10^3/uL (4.0-11.0)
[2024-02-17 10:56] LABS: Alanine Aminotransferase 44 U/L (14-59); Albumin Globulin Ratio 1.1; Albumin Level 3.8 g/dL (3.4-5.0); Alkaline Phosphatase 81 U/L (46-116); Anion Gap 13.2; Aspartate Amino Transferase 19 U/L (15-37); Bilirubin Direct 0.1 mg/dL (0.0-0.2); Bilirubin Total 0.6 mg/dL (0.2-1.0); Carbon Dioxide 28.1 mmol/L (21.0-32.0); Chloride 104 mmol/L (98-107); Chol HDL Ratio 4.1; Cholesterol 207 mg/dL (<=200); Estimated GFR (African America >60 (>=60); Estimated GFR (Non-African Ame >60 (>=60); Globulin 3.4 g/dL; HDL Cholesterol 50 mg/dL (40-60); Potassium 4.3 mmol/L (3.5-5.1); Sodium 141 mmol/L (136-145); Thyroid Stimulating Hormone 1.529 uIU/mL (0.358-3.740); Total Protein 7.2 g/dL (6.4-8.2); Triglycerides 93 mg/dL (<=150); VLDL CHOLESTEROL 18.6 mg/dL
[2024-02-17 11:31] LABS: Estimated Average Glucose 111 mg/dL; Glycohemoglobin A1C 5.5 % (4.5-6.2)
== END 2024-02-17 08:15 | disposition home or self-care (01) ==
LOC: LAB 08:15
PROVIDERS: PCP Internal Medicine; Visit Provider Internal Medicine
DX: E78.2 Mixed hyperlipidemia (principal); R73.09 Other abnormal glucose; E03.9 Hypothyroidism, unspecified; R53.83 Other fatigue; Z79.899 Other long term (current) drug therapy
CPT/HCPCS: 36415; 80051; 80061; 80076; 82565; 83036; 84443; 84520; 85025

== ENCOUNTER 2024-03-15 07:49 | Outpatient (OUT) | payer MEDICARE, OTHER, SELFPAY ==
--- NOTE | 2024-03-15 07:52 | US_ITS ---
[address] [address] Patient Name: RUPERTO SARAVIA MRN: [id number] date: 1955 Sex: F Assigned Patient Location: US Current Patient Location: US Accession/Order Number: [id number] Exam Date: 03/15/2024 07:58 Report Date: 03/15/2024 13:05 At the request of: KERA STEELE Procedure: US renal BI EXAMINATION: US renal BI HISTORY: Kidney Stones COMPARISON: No relevant comparison available. TECHNIQUE: Ultrasound examination was performed of the bladder. FINDINGS: Right Kidney: Normal in size and contour. 7 mm echogenic nonobstructing nephrolith. No solid cortical mass. Moderate hydronephrosis Height: 6.32 cm Length: 11.73 cm Width: 5.61 cm Left Kidney: Normal in size, contour and echotexture. 6 mm echogenic focus mid pole, nonobstructing nephrolith. 2 mm area of anechoic echogenicity upper pole, simple cyst. No solid cortical mass or hydronephrosis Height: 7.65 cm Length: 11.56 cm Width: 5.42 cm Urinary bladder: 100 cc Ureteral jets: Visualized bilaterally US/US renal BI IMPRESSION: Bilateral nonobstructing nephrolithiasis Moderate right hydronephrosis of unknown etiology Electronically authenticated by: ARMANDO HOLLINGSWORTH Date: 03/15/2024 13:05
--- OUTSIDE RECORDS SUMMARY | 2024-03-15 07:53 | XMS_ITS | CCD ---
Author Organization [facility] Care Team Providers Care Green House Manager Name Role Phone Gerson Gonzalez Primary Care Provider [phone] Self, Referral Attending Provider Unavailable Lisa Carson, Gerson Loja Primary Care Provider GERSON GONZALEZ JR Primary Care Physician Lisa Carson, Gerson Loja Primary Care Provider Gerson Gonzalez Jr. Primary Care Provider DARRICK, DR ARMANDO Melo Consulting Unavailable VALMARIZA, DR SKY Primary Care Unavailable LEXI DIETZ Admitting Unavailable LEXI DIETZ Attending Unavailable LEXI DIETZ Consulting Unavailable VALONE, [...] VALONE, DR SKY Admitting Unavailable VALONE, DR KSY Attending Unavailable VALONE, DR SKY Consulting Unavailable WEST, DR ARMANDO Melo Consulting Unavailable LEXI DIETZ Admitting Unavailable VALONE, DR SKY Primary Care Unavailable LEXI DIETZ Attending Unavailable LEXI DIETZ Consulting Unavailable JARAD BENAVIDES Consulting Unavailable JR Gerson Gonzalez Primary Care Provider [phone] CARLOS Wade Attending Provider ADINA ROSALES Attending Unavailable ELIZABETH HILLIARD Referring Unavailable GERSON GONZALEZ JR Primary Care Unavail able ADINA ROSALES Attending Unavailable GERSON GONZALEZ JR Primary Care Unavail able JR Gerson Gonzalez Primary Care Provider [phone] CARLOS Wade Attending Provider [phone] Gerson Gonzalez Primary Care Unavailable Vilma Wade Attending Unavailable Vilma Wade Admitting Lexi Pope Attending Unavailable Lexi Reid Attending Unavailable MICHAEL CRUZ Attending Unavailable VILMA WADE Attending Unavailable VILMA WADE Referring Unavailable VILMA WADE Attending Unavailable GABRIEL BEYER Attending Unavailable MICHAEL CRUZ Attending Unavailable VILMA WADE Attending Unavailable Allergies Allergy Classification Reported Allergen(s) Allergy Type Date of Onset Reaction(s) Facility (7 sources) Seasonal allergy; Translations: [SEASONAL ALLERGIES] Propensity to adverse reactions 0 Itching [facility] (1 source) Unable to Assess Drug allergy (disorder) 4 [facility] Repository Medications Current Medications Medication Drug Class(es) [...] 12-30-2023 Reminders - From: Alejandra Garcia To: EU - Recalls Lue; Sent: 06/24/2023 08:37:16 EST Show up: 11/23/2023 09:37:00 EDT Subject: KUB and CEASAR prior to appt Reminder Message Please Remember to:_have pt get KUB and CEASAR prior to appt. Pt has gone to [facility] in the past. KUB/CEASAR order faxed to [facility]. Called pt and left to return our call. Pt moved appointment back to 03/30/24 Normal [facility] Creatinine (Bld) [Mass/Vol]O rdered By: Vilma Wade on 11-03-2023 Creatinine [Mass/Vol] 0.6 mg/dL 0.6-1.3 [facility] Comment on above: ER/ESD physician is notified/shown all ISTAT results.Critical values may be confirmed by laboratory testing ifdeemed necessary by ER attending doctor. ISTAT XRay CREon 11-03-2023 Creatinine [Mass/Vol] 0.6 mg/dL Normal 0.6-1.3 [facility] Comment on above: Result Comment: ER/E SD physician is notified/shown all ISTAT results. Critical values may be confirmed by laboratory testing if deemed necessary by ER attending doctor. Performed By: #### I SCRE #### [facility] [address] [place] [address] ISTAT GFR > 60.0 Normal [facility] Comment on above: Result Comment: PERF ORMED BY: [place] [address] PATHOLOGIST METAL WEIGHER TIFFANIE ROSS M.D. Performed By: #### I SCRE #### [facility] [address] [place] [address] MR head/brain wo/w conon MR head/brain wo/w con [facility] [place] [address] [place] [address] MRI Report Signed Patient: Ofe Saravia MR#: [id number] : 1955 Acct:[id number] Age/Sex: 68 / F ADM Date: 11/03/23 Loc: MR Room: Type: [facility] Attending Dr: Vilma Wade PA-C Copies [...] Sanjiv Reis M.D.11/03/2023 3:10 PM Dictation Location: [place] [address] Transcribed By: [facility] 11/03/23 6405 Dictated By: Sanjiv Reis II, MD 11/03/23 1410 Signed By: 11/03/23 1510 Normal [facility] No Panel InformationOrdered By: Vilma Wade on 11-03-2023 Bedside Estimated GFR (eGFR) > 60.0 [facility] CNCOon 10-14-2023 CNCO Letter Text Normal [facility] CNOVon 10-09-2023 CNOV Office Visit (OTOLMN ) OFE SARAVIA ([id number]) 1955 F Date Time Provider Department 10/09/23 10:00 AM ADINA ROSALES OTOLMN During your visit today, we recorded the following information about you: Adina Rosales MD 10/18/2023 4:43 PM Signed [facility] [place] [facility] Re[facility]ive Surgery Name: Ofe [...] orbicularis oculi, zygomaticus major, levator labii and early childhood - Severe lateral pull of upper lip [...] units 1 site) = 2 U Left early childhood (3u, 2 site) = 6 U Left procerus (3u, 1 site) = 3 U Left mentalis (2u, 3 sites) 6 U Left platysma (3u, 18 x sites) = 54 units Right TAMRA (3U 1 site)=3U Right early childhood (2U, 2 sites) = 4U Right lateral orbicularis infrabrow= 2U, 1 site=2U Right platysma (3U j3jgimp) = 9 U Total: 120 units used [...] MD Facial Plastic and Reconstructive Surgery Fellow [facility], [facility] [place] Bogdan Mirza RN 10/09/2023 10:38 AM Signed [...] disordr [M26.639] 04/24/2010 Myalgia and myositis, unspecified [[id number]] 05/07/2011 Unspecified disorder of muscle, ligament, and [...] a r (more content not included)... Normal [facility] Patient Educationon 06-24-20 Patient Education Nephrology Dietary [...] Spinach (cooked), rhubarb, beets, sweet potatoes, and Burkinan chard. ? Peanuts. ? Potato chips, cymro fries, and baked potatoes with skin on. ? Nuts and nut products. ? Chocolate. ? If you regularly take a diuretic medicine, make sure to eat at least 1 or 2 servings of fruits or vegetables that are high in potassium each day. These include: ? Avocado. ? Banana. ? [place], prune, carrot, or tomato juice. ? Baked [...] fish oil, or vitamin B6. ? Take udez-zke-bqsecmh and prescription medicines only as told by your health care provider. These include supplements. What foods sh (more content not included)... Normal [facility] Urology Office/Clinic Noteon 06-24-2023 Urology Office/Clinic Note [...] renal cyst (N28.1: Cyst of kidney, acquired) [facility] 06/08/23 [facility] - 1.3 x 1.5 x [...] Information Franklin FLOYD, Lexi Regalado, URL, [facility] [address], [place] [address] [phone] Additional Instructions: 6 mos w/ KUB and [...] Simple renal (more content not included)... Normal [facility] Comment on above: Result Comment: Elec tronically Signed By: Lexi Reid MD\.br\Date and Time Signed: 06/24/23 08:45 EST\.br\Electronically Co-Signed By: Alejandra Garcia\.br\Date and Time Co-Signed: 06/24/23 08:35 EST RAD - MISCon 06-09-2023 RAD - MISC [id number]. 00TIFF Normal [facility] RAD - Ultrasound Reporton RAD - Ultrasound Report [id number]. 00TIFF Normal [facility] CNOVon 04-10-2023 CNOV Office Visit (OTOLMN ) OFE SARAVIA ([id number]) 1955 F Date Time Provider Department 04/10/23 9:30 AM ADINA ROSALES OTOLMN During your visit today, we recorded the following information about you: Adina Rosales MD 04/10/2023 11:35 AM Signed [facility] [place] Facial Plastic and Reconstructive Surgery Name: Ofe [...] orbicularis oculi, zygomaticus major, levator labii and early childhood - Severe lateral pull of upper lip [...] (2u, 4 sites) = 8 U Left early childhood (3u, 2 site) = 6 U Left [...] MD Facial Plastic and Reconstructive Surgery Fellow [facility], [facility] [place] Macy Leyva RN 04/10/2023 9:45 AM Signed [...] Itching Date Reviewed: 04/10/2023 Reviewed by: Macy Leyva, RN - Fully Assessed Reason for Visit: [...] disordr [M26.639] 04/24/2010 Myalgia and myositis, unspecified [[id number]] 05/07/2011 Unspecified disorder of muscle, ligament, and [...] SOLUTION* 04/10/ (more content not included)... Normal [facility] CT ABD/PELVIS WO CONon 11-12 CT ABD/PELVIS [...] by: ARMANDO HOLLINGSWORTH Date: 2022-11-12 11:22 Normal [facility] US KIDNEYSon 07-08-2022 US KIDNEYS US KIDNEYS EXAM DATE: 07/08/2022 5:54 AM MST COMPARISON: Same day radiograph, CT abdomen and pelvis without contrast 07/31/2021 INDICATION: History of kidney stones. TECHNIQUE: Real-time ultrasound scanning of the kidneys and bladder was performed by the fur weigher. Tone Cabinet Assembler static images are submitted for review. FINDINGS: [...] by: JARAD BENAVIDES Date: 2022-07-08 16:58 Normal [facility] XR KUB 1 VIEWon 07-08-2022 XR [...] by: JARAD BENAVIDES Date: 2022-07-08 17:05 Normal [facility] XR DEXA BONE DENSITYon 06-05 XR [...] by: ARMANDO HOLLINGSWORTH Date: 2022-06-05 12:51 Normal [facility] CT FOOT RT WO CONon 02-28-20 CT FOOT RT WO CON EXAMINATION: CT [...] by: ARMANDO HOLLINGSWORTH Date: 2022-02-27 18:17 Normal [facility] T4 FREE/FREE THYROXon 2021 Free T4 [Mass/Vol] 1.0 ng/dL 0.9 - 1.7 ng/dL [facility] TSH BLDon 11-12-2021 TSH Qn 2.420 m[IU]/L 0.270 - 4.200 mIU/L [facility] Vital Signs Date Time Vital Sign Value Performing Clinician Faci litaileen 11-03-2023 11:21-0400 Body height 175.26 cm JR Gerson Gonzalez Work Phone: [facility] 11-03-2023 11:21-0400 Body weight 97.52 kg JR Gerson Gonzalez Work Phone: [facility] 11-26-2022 07:56-0400 Blood Pressure Location Lexi Lue [facility] 11-26-2022 07:56-0400 Diastolic blood pressure 67 mm[Hg] Lexi Lue [facility] 11-26-2022 07:56-0400 Heart rate 62 /min Lexi Lue [facility] 11-26-2022 07:56-0400 Systolic blood pressure 113 mm[Hg] Lexi Lue [facility] 01-15-2022 10:13-0400 Blood Pressure Location Lexi Lue [facility] 01-15-2022 10:13-0400 Diastolic blood pressure 73 mm[Hg] Lexi Lue [facility] 01-15-2022 10:13-0400 Heart rate 70 /min Lexi Lue [facility] 01-15-2022 10:13-0400 Respiratory rate 16 /min Lexi Lue [facility] 01-15-2022 10:13-0400 Systolic blood pressure 122 mm[Hg] Lexi Lue [facility] 11-12-2021 10:56-0400 Body height 175.3 cm Shawna Card MD, PhD Work Phone: [facility] 11-12-2021 10:56-0400 Body weight 98.88 kg Shawna Card MD, PhD Work Phone: [facility] 11-12-2021 10:56-0400 Diastolic blood pressure 74 mm[Hg] Shawna Card MD, PhD Work Phone: [facility] 11-12-2021 10:56-0400 Heart rate 64 /min Shawna Card MD, PhD Work Phone: [facility] 11-12-2021 10:56-0400 Systolic blood pressure 128 mm[Hg] Shawna Card MD, PhD Work Phone: [facility] Encounters Encounter Date Encounter Type Care Provider Facility Start: 03-30-2024 ambulatory Lexi Reid Facility:[facility] Start: 02-25-2024 End: 02-25-2024 ambulatory VILMA WADE Not Available Start: 02-02-2024 End: 02-02-2024 ambulatory MICHAEL CRUZ Not Available Start: 01-28-2024 End: 01-28-2024 ambulatory MICHAEL A FELTER Not Available Start: 01-11-2024 End: 01-11-2024 ambulatory GABRIEL BEYER Not Available Start: 12-28-2023 End: 12-28-2023 ambulatory VILMA WADE Not Available Start: 12-10-2023 End: 12-10-2023 ambulatory VILMA WADE Not Available Start: 11-12-2023 End: 11-12-2023 ambulatory VILMA WADE Not Available Start: 11-03-2023 End: 11-03-2023 ambulatory Gerson Gonzalez Facility:[facility] Start: 11-03-2023 End: 11-03-2023 ambulatory JR Gerson Gonzalez Work Phone: [facility] Work Phone: Start: 11-03-2023 End: 11-03-2023 Patient encounter procedure JR Gerson Gonzalez Work Phone: [facility] [place] Work Phone: Start: 10-09-2023 End: 10-09-2023 ambulatory ADINA ROSALES Facility:[facility] Start: 08-24-2023 End: 08-24-2023 ambulatory JR Gerson Gonzalez Work Phone: [facility] Work Phone: Start: 08-24-2023 End: 08-24-2023 Patient encounter procedure JR Gerson Gonzalez Work Phone: [facility] [place] Work Phone: Start: 08-06-2023 End: 08-06-2023 ambulatory MICHAEL CRUZ Not Available Start: 06-24-2023 End: 06-24-2023 ambulatory Lexi Reid Facility:[facility] Start: 06-24-2023 End: 06-24-2023 Patient encounter procedure Lexi Reid [facility] Start: 04-10-2023 End: 04-10-2023 ambulatory ADINA ROSALES Facility:[facility] Start: 04-10-2023 End: 04-10-2023 Patient encounter procedure Adina Rosales MD Work Phone: Otolaryngology Comment on above: Facial paralysis (Pr imary Dx) Start: 11-26-2022 End: 11-26-2022 Patient encounter procedure Lexi Reid [facility] Start: 11-12-2022 End: 11-13-[address] ARMANDO HOLLINGSWORTH Facility: Start: 09-10-2022 ambulatory Elizabeth Hilliard MD Work Phone: [facility] Start: 09-10-2022 Patient encounter procedure Elizabeth Hilliard MD Work Phone: Facial Plastics/Reconstruction Comment on above: Botox Appointment Start: 07-23-2022 End: 07-23-2022 Patient encounter procedure Lexi Reid [facility] Start: 07-08-2022 End: 07-09-2022 ambulatory LEXI REID . Facility:[facility] Start: 06-05-2022 End: 06-06-[address] GERSON GONZALEZ Facility:[facility] Start: 05-16-2022 End: 05-16-2022 Patient encounter procedure Elizabeth Hilliard MD Work Phone: Facial Plastics/Reconstruction Comment on above: Facial nerve motor d isorder (Primary Dx) Start: 02-27-2022 End: 02-28-2022 ambulatory VINCENT BURCIAGA Facility:[facility] Start: 02-19-[address] GERSON GONZALEZ [facility] ity:[facility] Start: 01-15-2022 End: 01-15-2022 Patient encounter procedure Lexi PoojaCari Reid [facility] Start: 12-25-2021 End: 12-26-2021 ambulatory ALHAJI [...] Patient encounter procedure Gerson Gonzalez Work Phone: [facility] Date Procedure Procedure [...] 03-20-2023 Influenza vaccination Influenza Vacc ine (#1) [facility] Start: 07-20-2022 ADVANCE DIRECTIVE DISCUSSION ADVANCE DIRECTIVE DISCUSSION [facility] Start: 07-20-2022 DEPRESSION ASSESSMENT DEPRESSION ASS ESSMENT [facility] Start: 03-20-2022 Influenza vaccination [facility] Start: 10-31-2021 COVID-19 VACCINE (4 - Booster for Pfizer series) COVID-19 VACCINE (4 - Booster for Pfizer series) [facility] Start: 2021 ADVANCE DIRECTIVE DISCUSSION ADVANCE DIRECTIVE DISCUSSION [facility] Start: 2021 BONE DENSITY BONE DENSITY [facility] Start: 2021 Bone Density Screening Bone Density Screening [facility] Start: 2021 Pneumococcal Vaccine : 65+ (1 - PCV) Pneumococcal Vaccine: 65+ (1 - PCV) [facility] Start: 2021 PNEUMOCOCCAL: 65+ (1 - PCV) PNEUMOCOCCAL: 65+ (1 - PCV) [facility] Start: 2021 PNEUMOVAX AGE 65 AND OVER WITH 5YR LOOKBACK (#1) PNEUMOVAX AGE 65 AND OVER WITH 5YR LOOKBACK (#1) [facility] Start: 08-27-2021 COVID-19 VACCINE (4 - Booster for Pfizer series) COVID-19 VACCINE (4 - Booster for Pfizer series) [facility] Start: 08-27-2021 Covid-19 Vaccine (4 - Pfizer series) Covid-19 Vaccine (4 - Pfizer series) [facility] Start: 07-20-2021 DEPRESSION ASSESSMENT DEPRESSION ASS ESSMENT [facility] Start: 12-24-2012 DIABETES SCREEN DIABETES SCREEN [facility] Start: 12-24-2012 Diabetes Screening Diabetes Screenin g [facility] Start: 2006 SHINGRIX VACCINE (1 of 2) SHINGRIX V ACCINE (1 of 2) [facility] Start: 2001 COLOGUARD (FIT-DNA) COLOGUARD (FIT-D NA) [facility] Start: 2001 Colonoscopy COLONOSCOPY [facility] Start: 2001 COLORECTAL CANCER SCREENING COLORECTAL CANCER SCREENING [facility] Start: [address] COLONOGRAPHY [facility] Start: 2001 FECAL OCCULT BLOOD FECAL OCCULT BLOO D [facility] Start: 2001 Lipid 1996 panel - S john or Plasma Lipid Screening [facility] Start: 2001 LIPID SCREEN LIPID SCREEN [facility] Start: 2001 SIGMOIDOSCOPY SIGMOIDOSCOPY [facility] Start: 1996 Mammography [facility] Start: 09-24-1975 Urine microalbumin profile [facility] Start: 1974 HEPATITIS C SCREENING HEPATITIS C SC REENING [facility] Start: 1974 HIV SCREENING HIV SCREENING [facility] Start: 1968 Adult depression scr eening assessment DEPRESSION SCREENING [facility] [place] [facility] Immunizations Immunization Date Immunization Notes Care Provider Fa vaishali 07-02-2021 SARS-CoV-2 (COVID-19 ) mRNA BNT-162b2 vax Lexi Lue [facility] 01-08-2021 SARS-CoV-2 (COVID-19 ) mRNA BNT-162b2 vax Lexi Lue [facility] 10-08-2020 SARS-CoV-2 (COVID-19 ) mRNA BNT-162b2 vax Lexi Lue [facility] 07-20-2020 SARS-CoV-2 (COVID-19 ) mRNA BNT-162b2 vax Lexi Lue [facility] Payers Date Payer Category Payer Self-pay [id number] 2023 Unknown [id number] 2017 Private Health Insurance [facility] UMR CHOICE PLUS [id number] 2017-Present [phone] [address] [address] [place] [address] O [id number] 2017 Private Health Insurance [facility] UMR CHOICE PLUS [id number] 2017-Present [phone] [address] [address] [place] [address] O [id number] 2012 Unknown DENTAL DENTAL GE NERIC [id number] 2012-Present [phone] [address] [address] [place] [address] Dental [id number] 2005 Medicare MEDICARE MEDICAR E A AND B [id number] 2005-Present [phone] [place] [address] Medicare [id number] 2005 Medicare MEDICARE MEDICAR E A AND B [id number] 2005-Present [phone] [place] [address] Medicare [id number] 1959 Medicare [id number] 1959 Private Health Insurance [id number] 1955 Unknown [id number] 2.16.840.1.392483.3.579.2. 593 1956 Unknown [id number] 2.16.840.1.066104.3.579.2. 593 1956 Unknown [id number] 2.16.840.1.508428.3.579.2. 593 1956 Unknown [id number] 2.16.840.1.101448.3.579.2. 593 1956 Unknown [id number] 2.16.840.1.326678.3.579.2. 593 1956 Unknown [id number] 2.16.840.1.575997.3.579.2. 593 1956 Unknown [id number] 2.16.840.1.836735.3.579.2. 727 1956 Unknown [id number] 2.16.840.1.224542.3.579.2. 727 1955 Unknown [id number] 2.16.840.1.988699.3.579.2. 1259 1956 Unknown [id number] 2.16.840.1.562689.3.579.2. 1259 1956 Unknown [id number] 2.16.840.1.317674.3.579.2. 1259 1956 Unknown [id number] 2.16.840.1.122677.3.579.2. 1259 1956 Unknown [id number] 2.16.840.1.157870.3.579.2. 1259 1955 Unknown [id number] 2.16.840.1.374796.3.579.2. 1259 1955 Unknown [id number] 2.16.840.1.117915.3.579.2. 1259 1955 Unknown [id number] 2.16.840.1.240208.3.579.2. 1259 Medicare Self Pay [id number] Unknown [id number] Unknown [id number] 2.16.840.1.734962.3.579.2. 531 Social History Date Type Detail Facility Tobacco smoking stat [facility] Unknown if ever smoked [facility] Start: 1955 Sex Assigned At Female F [facility] Start: 09-18-2021 End: 06-24-2023 Tobacco smoking status WVIS Ex-smoker [facility] End: 07-20-1999 History of tobacco use Current smoker [facility] End: 07-20-1999 History of tobacco use Cigarette Smoker [facility] Start: 11-12-2021 End: 04-10-2023 Alcohol intake Current non-drinker of alcohol (finding) [facility] Start: 1955 Sex Assigned At Not on file [facility] Start: 11-02-2021 End: 05-16-2022 Exposure to SARS-CoV-2 (event) Not sure [facility] Start: 04-10-2023 [facility]igned At [facility] Start: 05-16-2022 End: 04-10-2023 Cigarettes smoked current (pack per day) - Reported 1.5 [facility] Start: 05-16-2022 Tobacco use and exposure Smokeless tobacco non-user [facility] National Score (1-10 0), lower number is lower risk 87 [facility] Start: 12-12-2021 Gender identity Identifies as female gender (finding) [facility] Medical Equipment Procedure Code Equipment Code Equipment Origin al Text Equipment Identifier Dates Tyree hendrix 1.0g - [id number] Start: 12-24-2009 Goals Date Patient Goal Desired Activity /State Functional Status Date Assessment Result Facility 06-24-2023 Functional Status N/A [facility] 11-26-2022 Functional Status N/A [facility] 07-23-2022 Functional Status N/A [facility] 01-15-2022 Functional Status N/A [facility] Clinical Notes 11-12-2021 to 10-09-2023 Macy Leyva RN - 04/10/2023 9:45 AM Adina Carter MD - 04/10/2023 9:30 AM Bernadette Lowery RN - 05/16/2022 1:36 PM Yamilex Hilliard MD - 05/16/2022 1:30 PM EDT Note Date & Type Note Facility 10-09-2023 Note HNO ID: [id number] Author: ADINA ROSALES MD Service: ? Author Type: Physician Type: Progress Notes Filed: 10/18/2023 16:43 Note Text: [facility] [place] Facial Plastic and Reconstructive Surgery Name: Ofe [...] orbicularis oculi, zygomaticus major, levator labii and early childhood - Severe lateral pull of upper lip [...] units 1 site) = 2 U Left early childhood (3u, 2 site) = 6 U Left procerus (3u, 1 site) = 3 U Left mentalis (2u, 3 sites) 6 U Left platysma (3u, 18 x sites) = 54 units Right TAMRA (3U 1 site)=3U Right early childhood (2U, 2 sites) = 4U Right lateral orbicularis infrabrow= 2U, 1 site=2U Right platysma (3U n4yebyi) = 9 U Total: 120 units used [...] MD Facial Plastic and Reconstructive Surgery Fellow [facility], [facility] [place] [facility] 06-24-2023 Hospital Discharg e instructions Patient Education [...] include: ?8 oz (237 mL) of milk, izngakp-aikiihuiywxx-gedhw milk, and calcium-fortifiedfruit juice. Calcium-fortified means that [...] ?Spinach (cooked), rhubarb, beets, sweet potatoes, and Burkinan chard. ?Peanuts. ?Potato chips, cymro fries, and baked potatoes with skin on. ?Nuts and nut products. ?Chocolate. If you regularly take a diuretic medicine, make sure to eat at least 1 or 2 servings of fruits or vegetables that are high in potassium each day. These include: ?Avocado. ?Banana. ?[place], prune, carrot, or tomato juice. ?Baked potato. [...] magnesium, fish oil, or vitamin B6. Take tfzt-jfp-fyabsgg and prescription medicines only as told by [...] Casseroles. Pizza. Lasagna. Frozen meals. Potato chips. Finnish fries. The items listed above may not [...] provider. Document Revised: 10/16/2022 Document Reviewed: 10/16/2022 [employer] Patient Education 2022 Stream T[employer]. Follow Up Care 11/26/2022 08:11:41 With:Franklin FLOYD, Lexi Regalado, URL, URO Address: [address] [phone] When: Unknown Comments:6 mos w/ KUB and CEASAR [facility] 04-10-2023 Note HNO ID: [id number] Author: Adina Rosales MD Service: ? Author Type: Physician Type: Progress Notes Filed: 04/10/2023 11:35 AM Note Text: Head and Neck [place] Facial Plastic and Reconstructive Surgery Name: Ofe [...] orbicularis oculi, zygomaticus major, levator labii and early childhood - Severe lateral pull of upper lip [...] (2u, 4 sites) = 8 U Left early childhood (3u, 2 site) = 6 U Left [...] MD Facial Plastic and Reconstructive Surgery Fellow [facility], Head and Neck [facility] 04-10-2023 Nurse Note Tobacco Use: 1.5 packs/day, for 18 years. Quit 07/20/1999. Types: Cigarettes Was smoking cessation packet given? N/A - Patient is a non-smoker or quit >1 year ago. Was a referral initiated?N/A Patient is a non-smoker documented in this encounter [facility] 04-10-2023 History of Presen t illness Narrative Head and Neck [place] Facial Plastic and Reconstructive Surgery Name: Ofe [...] orbicularis oculi, zygomaticus major, levator labii and early childhood - Severe lateral pull of upper lip [...] (2u, 4 sites) = 8 U Left early childhood (3u, 2 site) = 6 U Left [...] MD Facial Plastic and Reconstructive Surgery Fellow [facility], Head and Neck [place] documented in this encounter [facility] 11-26-2022 Hospital Discharg e instructions Patient [...] include: ?8 oz (237 mL) of milk, wocolwd-crkxqpddhsko-stlaj milk, and calcium-fortifiedfruit juice. Calcium-fortified means that [...] ?Spinach (cooked), rhubarb, beets, sweet potatoes, and Burkinan chard. ?Peanuts. ?Potato chips, cymro fries, and baked potatoes with skin on. ?Nuts and nut products. ?Chocolate. If you regularly take a diuretic medicine, make sure to eat at least 1 or 2 servings of fruits or vegetables that are high in potassium each day. These include: ?Avocado. ?Banana. ?[place], prune, carrot, or tomato juice. ?Baked potato. [...] magnesium, fish oil, or vitamin B6. Take nefh-qnv-pzdprne and prescription medicines only as told by [...] Casseroles. Pizza. Lasagna. Frozen meals. Potato chips. Finnish fries. The items listed above may not [...] provider. Document Revised: 03/17/2022 Document Reviewed: 03/17/2022 [employer] Patient Education 2022 Stream T[employer]. Follow Up Care 07/23/2022 11:38:48 With:Franklin FLOYD, BUDDY Garcia, URO Address: When: Unknown [facility] 07-23-2022 Hospital Discharg e instructions Patient Education 07/23/2022 11:37:41 Kidney Stones, Zuyd-zi-Pusc Kidney Stones Kidney stones are rock-like masses [...] Follow these instructions at home: Medicines Take lawy-anu-ivqadua and prescription medicines only as told by [...] 12/22/2008 Document Revised: 11/22/2019 Document Reviewed: 11/22/2019 [employer] Patient Education 2020 Stream Tags. Follow Up Care 01/15/2022 10:50:51 With:Franklin FLOYD, BUDDY Garcia, URO Address: [address], [facility] [place] [phone] When:Within 3 Month(s) Comments:matilde MANUEL AP w/o [facility] 05-16-2022 History of Presen t illness Narrative Botox 50U with 0.5ml NaCl Lot [id number] Exp 11/2024 Head and Neck [place] Facial Plastic and Reconstructive Surgery Name: Ofe Babb Jocyranda Date of Service: 05/16/2022 Patient ID: [id number] [...] orbicularis oculi, zygomaticus major, levator labii and early childhood -Severe lateral pull of upper lip to [...] (2u, 4 site) = 8 u Left early childhood (3u, 2 site) = 6 U Left [...] for repeat botox injections Elizabeth Hilliard MD [facility] Head and Neck Lap [place], Facial Plastic and Microvascular Surgery By signing my name below, I, Adrian Sepulveda, attest that this documentation has been prepared under the direction and in the presence of Dr. Elizabeth Hilliard. Electronically signed, Esteban Middleton May 16, 2022 2:59 PM I have reviewed and edited above documentation and it accurately reflects assessment, work and decisions made by me. Elizabeth Hilliard MD [facility] Head and Neck Lap Layer, Facial Plastic and Microvascular Surgery UNIVERSAL PROTOCOL [...] Elizabeth Hilliard MD documented in this encounter [facility] 05-16-2022 Nurse Note Tobacco Use: 1.5 packs/day, for 18 years. Quit 07/20/1999. Types: Cigarettes Was smoking cessation packet given? N/A - Patient is a non-smoker or quit >1 year ago. Was a referral initiated?N/A Patient is a non-smoker documented in this encounter [facility] 01-15-2022 Hospital Discharg e instructions Patient Education 01/15/2022 10:39:00 Kidney Stones, Cbhd-ta-Wziy Kidney Stones Kidney stones are rock-like masses [...] Follow these instructions at home: Medicines Take iqnp-qqo-dzyluij and prescription medicines only as told by [...] 12/22/2008 Document Revised: 11/22/2019 Document Reviewed: 11/22/2019 [employer] Patient Education 2020 Stream Tags. Follow Up Care 09/18/2021 11:24:57 With:Franklin FLOYD, BUDDY Garcia, URO Address: [address], [facility]- [phone] When:07/17/2022 Comments:CONCETTA MCDONOUGH [facility] 12-25-2021 Note PROCEDURE: XR FOOT R T MIN 3 VIEWS COMPARISON: 02/06/2021 HISTORY: Pain in right foot FINDINGS: BONES:No acute fracture or dislocation. Moderate enthesopathic spurring of the calcaneus. Stable corticated calcific density lateral to the cuboid SOFT TISSUES:Negative. No visible soft tissue swelling. EFFUSION:None visible. OTHER: Negative. IMPRESSION: No acute fracture Electronically authenticated by: ARMANDO HOLLINGSWORTH Date: 2021-12-25 16:49 [facility] 12-13-2021 History of Presen t illness Narrative Head and Neck [place] Facial Plastic and Reconstructive Surgery Name: Ofe [...] orbicularis oculi, zygomaticus major, levator labii and early childhood severe lateral pull of upper lip to [...] (2u, 2 sites) = 4 U left early childhood (3u, 2 site) = 6 U left [...] decisions made by me. 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 Stroke ([facility]) Social History: Social History Tobacco Use Smoking [...] Card MD, PhD documented in this encounter [facility] Evaluation + Plan note Future Appointments Appointment Date:07/23/2022 10:00:00 AM Scheduled Provider:Lexi Reid MD Location:[facility] Appointment Type:URO Office Visit [facility] Evaluation + Plan note Future Appointments Appointment Date:10/29/2022 10:15:00 AM Scheduled Provider:Lexi Reid MD Location:[facility] Appointment Type:URO Office Visit [facility] Evaluation + Plan note Future Appointments Appointment Date:06/24/2023 08:00:00 AM Scheduled Provider:Lexi Reid MD Location:[facility] Appointment Type:URO Office Visit [facility] Evaluation + Plan note Future Appointments Appointment Date:01/06/2024 09:00:00 AM Scheduled Provider:Lexi Reid MD Location:[facility] Appointment Type:URO Office Visit [facility] Evaluation note No Assessments Infor [facility] Evaluation note Diagnosis Multiple thyroid nodules- Primary Nontoxic multinodular goiter Obesity, Class I, BMI 30-34.9 Obesity, unspecified Vasomotor symptoms due to menopause [facility] Diagnosis 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 Facial nerve disorder, unspecified [facility] [place] [facility] Diagnosis Facial nerve motor disorder- Primary Facial nerve disorder, unspecified [facility] 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 [facility] noteNo assessment information availableGerman Hospital Work Phone: Hospital course Narrative No data available for this section [facility] progress note No data available for this section [facility] Advance Directives No Advanced Directives Records Found Advance Directive Response Recorded Date/ Time Advance Directives No May 2:55pm Documents on File Type Date Recorded 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 Advance Directive(s) 06/24/2019 7:51 AM Advance Directive(s) 06/01/2018 7:17 AM Advance Directive(s) 05/27/2018 1:38 PM Advance Directive(s) 12/12/2009 8:53 PM Documents on File Type Date Recorded 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 Advance Directive(s) 06/24/2019 7:51 AM Advance Directive(s) 06/01/2018 7:17 AM Advance Directive(s) 05/27/2018 1:38 PM Advance Directive(s) 12/12/2009 8:53 PM Documents on File Type Date Recorded 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 Advance Directive(s) 12/12/2009 8:53 PM Advance Directive Response Recorded Date/ Time Advance Directives No May 1:55pm Chief Complaint and Reason for Visit Chief Complaint Screening Chief Complaint Q27.30 R44.1 Reason for Referral Specialty Diagnoses / Procedures Referred By Alisson lin Referred To Contact Diagnoses Vasomotor symptoms due to menopause Procedures CONSULT TO WOMEN'S HEALTH OFFICE/OUTPATIENT [facility] 60-74 MINUTES Shawna Card MD, PhD [address] [place] [address] Vicki Kiser MD [address] [place] [address] Referral ID Status Reason Start Date Expiration Date Visits Requested Visits Authorized [id number] Authorized PCP Requested Referral Auto-Generate d Referral [...] or prosecute any alcohol or drug abuse patient.[facility] the event this information is protected by the Federal Confidentiality of Alcohol and Drug Abuse Patient Records regulations: The Federal rules restrict any use of the information to criminally investigate or prosecute any alcohol or drug abuse patient.[facility] the event this information is protected by the Federal Confidentiality of Alcohol and Drug Abuse Patient Records regulations: The Federal rules restrict any use of the information to criminally investigate or prosecute any alcohol or drug abuse patient.[facility] the event this information is protected by the Federal Confidentiality of Alcohol and Drug Abuse Patient Records regulations: The Federal rules restrict any use of the information to criminally investigate or prosecute any alcohol or drug abuse patient.[facility] the event this information is protected by the Federal Confidentiality of Alcohol and Drug Abuse Patient Records regulations: The Federal rules restrict any use of the information to criminally investigate or prosecute any alcohol or drug abuse patient.[facility] the event this information is protected by the Federal Confidentiality of Alcohol and Drug Abuse Patient Records regulations: The Federal rules restrict any use of the information to criminally investigate or prosecute any alcohol or drug abuse patient.[facility] Reason for Visit (unrecogniz ed section and content) Reason Comments Facial nerve spasm Facial nerve spasm, Botox Specialty Diagnoses / Procedures Referred By Contact Referred To Contact Ent - Otolaryngology / ENT-FACIAL PLASTICS Diagnoses 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, unspecified Alcala's palsy Repeat medical botox injections Procedures BOTULINUM TOXIN A PER 1 UNIT CHEMODNRVTJ [facility] INNERVATED FACIAL NRV UNIL RENEWAL REQUEST INJECTABLE (100 UNITS EVERY 3-4 MONTHS FOR 1 YR) [place] [address] [place] [address] Elizabeth Hilliard MD [address] [place] [address] Referral ID Status Reason Start Date Expiration Date V isits Requested Visits Authorized [id number] Authorized 12/13/2021 10/24/2022 99 99 Reason Comments Thyroid Problem Reason Comments Results Reason Comments Botox Injection Referral ID Status Reason Start Date Expiration Date V isits Requested Visits Authorized [id number] Pending Review 12/13/2021 12/12/2022 4 4 Reason Comments Follow Up Botox Specialty Diagnoses / Procedures Referred By Contac t Referred To Contact ENT-OTOLARYNGOLOGY 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 Renewal medical botox Procedures [facility] IN[facility] NRV UNIL BOTULINUM TOXIN A PER 1 UNIT Med botox 100 units every 3-4 months for 1 year Elizabeth Hilliard MD [address] [place] [address] Elizabeth Hilliard MD [address] [place] [address] Referral ID Status Reason Start Date Expiration Date V isits Requested Visits Authorized [id number] Authorized 04/01/2023 03/31/2024 99 99 Care Teams (unrecognized sec tion and content) Green House Manager Relationship Specialty Start Date End Date Lisa Gerson Loja Jr. [address] [place] [address] PCP - General 08/24/01 Green House Manager Relationship Specialty Start Date End Date Gerson Gonzalez [employer] [address] [place] [address] PCP - General 08/24/01 Green House Manager Relationship Specialty Start Date End Date Lisa Gerson Loja Jr. [address] [place] [address] PCP - General 08/24/01 Green House Manager Relationship Specialty Start Date End Date Gerson Gonzalez [employer] [place] [address] [place] [address] PCP - General 08/24/01 Green House Manager Relationship Specialty Start Date End Date Lisa Gerson Loja Jr. [address] [place] [address] PCP - General 08/24/01 Green House Manager Relationship Specialty Start Date End Date Lisa Gerson Loja Jr. [address] [place] [address] PCP - General 08/24/01 Team Status: Active [...] content) DATE CREATED AUTHOR 11/15/2022 [facility] DATE CREATED AUTHOR AUTHOR'S ORGANIZ ATION 10/18/2023 [facility] DATE CREATED AUTHOR AUTHOR'S ORGANIZ ATION 11/07/2023 [facility] DATE CREATED AUTHOR AUTHOR'S ORGANIZ ATION 01/01/2024 [facility] DATE CREATED AUTHOR AUTHOR'S ORGANIZ ATION 02/28/2024 [facility] EPIC Goals (unrecognized section and content) Goals may [...] BE BASED ON THE PRIMARY CLINICAL RECORDS. [facility] [employer] provides no warranty or guarantee of the accuracy or completeness of information in this document.
--- NOTE | 2024-03-15 08:05 | XR_ITS ---
The [address] [address] Patient Name: RUPERTO SARAVIA MRN: [id number] date: 1955 Sex: F Assigned Patient Location: Current Patient Location: Accession/Order Number: [id number] Exam Date: 03/15/2024 08:00 Report Date: 03/16/2024 04:35 At the request of: KERA STEELE Procedure: XR abdomen 1V EXAMINATION: XR abdomen 1V HISTORY: Kidney Stones COMPARISON: Ultrasound kidneys 03/15/2024, XR abdomen 06/08/2023 FINDINGS: KIDNEY/URETER - RIGHT: No visible renal or ureteral calcifications. KIDNEY/URETER - LEFT: No visible renal or ureteral calcifications. PELVIS: No visible ureteral stones. Stable small pelvic calcifications favoring phleboliths. BOWEL: No abnormal dilation or deviation. Large stool burden. BONES: No acute abnormality. OTHER: Negative. No abnormal gaseous collections. XR/XR abdomen 1V IMPRESSION: 1. No appreciable urinary tract calculi. Evaluation is limited by dense overlying bowel content. 2. Stones were present within both kidneys on ultrasound study performed on same date. Electronically authenticated by: RAFAEL WARE Date: 03/16/2024 04:35
== END 2024-03-15 07:50 | disposition home or self-care (01) ==
LOC: US 07:49
PROVIDERS: PCP Internal Medicine; Visit Provider Urology
DX: N20.0 Calculus of kidney (principal)
CPT/HCPCS: 74018; 76775

== ENCOUNTER 2024-03-17 13:57 | Outpatient (OUT) | payer MEDICARE, OTHER, SELFPAY ==
--- NOTE | 2024-03-17 14:06 | CT_ITS ---
The [address] [address] Patient Name: RUPERTO SARAVIA MRN: [id number] date: 1955 Sex: F Assigned Patient Location: CT Current Patient Location: Accession/Order Number: [id number] Exam Date: 03/17/2024 14:08 Report Date: 03/18/2024 08:51 At the request of: CARLOS SHANKAR Procedure: CT abdomen pelvis wo con EXAM: CT abdomen pelvis wo con HISTORY: Flank Pain, Kidney Stone COMPARISON: CT abdomen and pelvis 11/12/2022. TECHNIQUE: Axial soft tissue windows of the abdomen and pelvis with coronal and sagittal reformats. CT dose reduction technique was used including Automated Exposure Control. . Findings: Lack of intravenous contrast limits evaluation. ABDOMEN: There is fatty infiltration of the liver. The gallbladder,, and adrenal glands are unremarkable. Ill-defined cystic, low-attenuation lesion within the body of the pancreas measuring approximately 1.7 cm. Nonobstructing bilateral renal stones. The largest is within the lower pole of the right kidney 0.2 cm. Left upper pole peripelvic cysts. No left-sided collecting system dilatation. The left ureter is nondilated. There is moderate right-sided collecting system and ureteral dilatation to the level of the distal ureter obstructing 0.6 cm stone. Distal to this there is a second stone just proximal to the ureterovesicular junction measuring approximately 0.7 cm. Evaluation of the bowel is limited given the absence of oral contrast. No bowel obstruction. The appendix is not definitely identified. The aorta is normal caliber. Mild atherosclerotic disease. No enlarged abdominal lymph nodes or free abdominal fluid. Tiny fat-containing umbilicus hernia. Pelvis: The bladder is nondistended limiting its evaluation. The uterus is present and unremarkable within the limits of CT. No enlarged pelvic lymph nodes or free pelvic fluid. No aggressive sclerotic or lytic osseous lesions. CT/CT abdomen pelvis wo con IMPRESSION: 1. Obstructing stone within the distal right ureter resulting in moderate right-sided collecting system and ureteral dilatation. 2. Nonobstructing renal stones bilaterally. 3. Other nonemergent findings, as described above. Electronically authenticated by: ADRIÁN RODRIGUEZ Date: 03/18/2024 08:51
== END 2024-03-17 13:58 | disposition home or self-care (01) ==
LOC: CT 13:58
PROVIDERS: PCP Internal Medicine; Visit Provider Physician Assistant
DX: N20.0 Calculus of kidney (principal); N13.30 Unspecified hydronephrosis; R10.9 Unspecified abdominal pain; N20.1 Calculus of ureter
CPT/HCPCS: 74176

== ENCOUNTER 2024-04-07 07:46 | Outpatient (OUT) | payer MEDICARE, OTHER, SELFPAY ==
--- NOTE | 2024-04-07 07:49 | US_ITS ---
[place] [id number] Patient Name: RUPERTO SARAVIA MRN: [id number] date: 1955 Sex: F Assigned Patient Location: Current Patient Location: Accession/Order Number: [id number] Exam Date: 04/07/2024 07:50 Report Date: 04/07/2024 13:02 At the request of: KERA STEELE Procedure: US renal BI EXAMINATION: US renal BI HISTORY: kidney stones N20.0 COMPARISON: 03/15/2024 TECHNIQUE: Ultrasound examination was performed of the bladder. FINDINGS: Right Kidney: Normal in size, contour and echotexture. The cortex measures 0.8 cm. Moderate hydronephrosis. 1 cm echogenic focus upper pole, nephrolith favored Height: 5.76 cm Length: 11.78 cm Width: 4.90 cm Left Kidney: Normal in size, contour and echotexture. The cortex measures 1.3 cm. Area of anechoic echogenicity upper pole measuring 2.4 cm, parapelvic cyst suspected Height: 5.54 cm Length: 12.79 cm Width: 5.09 cm The urinary bladder is minimally distended measuring 2.1 x 5.1 x 4.0 cm , volume of 29 cc US/US renal BI IMPRESSION: Moderate right hydronephrosis with 1 cm nonobstructing nephrolith 2.4 cm left parapelvic cyst Electronically authenticated by: ARMANDO HOLLINGSWORTH Date: 04/07/2024 13:02
--- OUTSIDE RECORDS SUMMARY | 2024-04-07 07:49 | XMS_ITS | CCD ---
Author Organization [facility] CliniSyma Care Team Providers Care Emergency Services Professional Name Role Phone Greson Gonzalez Primary Care Provider Self, Referral Attending Provider Unavailable Lisa Carson, Gerson Loja Primary Care Provider GERSON GONZALEZ JR Primary Care Physician [phone] Gerson Gonzalez Jr. Primary Care Provider Gerson Gonzalez Jr. Primary Care Provider DARRICK, DR ARMANDO Melo Consulting Unavailable VALONE, DR SKY Primary [...] Unavailable WEST, DR ARMANDO Melo Consulting Unavailable FRANKLIN .LEXI Admitting Unavailable VALONE, DR SKY Primary Care Unavailable LEXI DIETZ Attending Unavailable LEXI DIETZ Consulting Unavailable JARAD BENAVIDES Consulting Unavailable JR Gerson Gonzalez Primary Care Provider [phone] CARLOS Wade Attending Provider JR Gerson Gonzalez Primary Care Provider CARLOS Wade Attending Provider [phone] Gerson Gonzalez Primary Care Unavailable Shasta Wade Attending Unavailable Shasta Wade Admitting Unavailable MICHAEL CRUZ Attending Unavailable SHASTA WADE Attending Unavailable SHASTA WADE Referring Unavailable SHASTA WADE Attending Unavailable GABRIEL BEYER Attending Unavailable MICHAEL CRUZ Attending Unavailable SHASTA WADE Attending Unavailable Lexi Reid Attending Unavailable Lexi Reid Attending Unavailable Lexi Reid Attending Unavailable ANN SHANKAR Attending Unavailable ELIZABETH HILLIARD Referring Unavailable ADINA ROSALES Attending Unavailable GERSON GONZALEZ JR Primary [facility] Unavail able ELIZABETH HILLIARD Attending Unavailable ELIZABETH HILLIARD Referring Unavailable GERSON GONZALEZ JR Primary Care Unavail able ADINA ROSALES Attending Unavailable GERSON GONZALEZ JR Primary Care Unavail able Allergies Allergy Classification Reported Allergen(s) Allergy Type Date of Onset Reaction(s) Facility (7 sources) Seasonal allergy; Translations: [SEASONAL ALLERGIES] Propensity to adverse reactions 0 Itching [facility] (1 source) Unable to Assess Drug allergy (disorder) 4 [facility] Repository Medications Current Medications Medication [...] as needed. FLUoxetine 20 mg oral capsule (11 sources) Serotonin Reuptake Inhibitor Start: 11-26-2022 take [...] day levothyroxine sodium 0.025 mg oral tablet (2 sources) l-Thyroxine Start: 3 levothyroxine 25 mcg (0.025 mg) Tab Refills(s) 0 Start Date: 06/24/23 Status: Ordered propranolol hydrochloride 20 mg oral tablet (11 sources) beta-Adrenergic Vamshi Start: 2 propranolol 20 mg Tab 20 mg = 1 tab(s), Oral, As Directed Start Date: 07/24/21 Status: Ordered Comment on above: as needed. tamsulosin hydrochloride 0.4 mg oral capsule (1 source) alpha-Adrenergic Vamshi Start: 4 take 1 capsule by mouth once daily tamsulosin 0.4 mg Cap 0.4 mg = 1 cap(s), Oral, Daily, # 30 cap(s), Refills(s) 0, Pharmacy: [facility]/pharmacy #[id number], 175, cm, 03/17/24 12:54:00 EDT, Height/Length Dosing, 95, kg, 03/17/24 12:54:00 EDT, Weight Dosing Start Date: 03/17/24 Status: Ordered Completed/Discontinued Medications Medication Drug Class(es) Dates Sig [...] then stop. ezetimibe 10 mg oral tablet (11 sources) Dietary Cholesterol Absorption Inhibitor Start: 10-03-2021 [...] Virus Nucleoside Analog DNA Polymerase Inhibitor Start: 021 End: famciclovir (FAMVIR) 500 mg tablet lisdexamfetamine [...] Problem Date Documented Date Episodic/Chronic Abdominal pain (8 sources) Abdominal pain; Translations: [Unspecified abdominal pain] Onset: 01-15-2022 Episodic Anxiety disorders (11 sources) Anxiety state; Translations: [Generalized anxiety disorder] 06-01-2008 Chronic Blindness and vision defects (1 source) Visual impairment Onset: 07-20-2008 03-17-2024 Chronic Comment on above: Outside Source Comme nt: Overview: 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 Blindness and vision defects (1 source) Visual hallucinations; Translations: [Visual hallucinations] Onset: 11-03-2023 Episodic Calculus of urinary tract (14 sources) Kidney stone; Translations: [Calculus of kidney] Onset: 01-15-2022 Episodic Cardiac and circulatory congenital anomalies (6 sources) Congenital anomaly of cerebrovascular system; Translations: [Other malformations of cerebral vessels] Onset: 07-17-2005 04-01-2018 Chronic Disorders of lipid metabolism (5 sources) Hyperlipidemia 07-24-2021 Chronic Genitourinary symptoms and ill-defined conditions (6 sources) Stress incontinence (female) (male); Translations: [Genuine stress incontinence] Onset: 11-26-2022 Chronic Genitourinary symptoms and ill-defined conditions (6 sources) Hypercalciuria; Translations: [Hypercalciuria] Onset: 01-15-2022 Episodic Headache; including migraine (5 sources) Headache 07-24-2021 Episodic Menopausal disorders (7 sources) Menopausal syndrome; Translations: [Menopausal and female climacteric states] Onset: 11-12-2021 Chronic Osteoarthritis (9 sources) Arthritis; Translations: [Primary osteoarthritis, right ankle and foot] Onset: 02-27-2022 07-24-2021 Chronic Other connective tissue disease (5 sources) Neuralgia 07-24-2021 Episodic Other diseases of kidney and ureters (2 sources) Acquired renal cyst without neoplastic change; Translations: [Cyst of kidney, acquired] Onset: 06-24-2023 Episodic Other diseases of kidney and ureters (2 sources) Simple renal cyst 06-24-2023 Episodic Other diseases of kidney and ureters (2 sources) Hydronephrosis; Translations: [Unspecified hydronephrosis] Onset: 03-17-2024 Episodic Other ear and sense organ disorders (1 source) Hearing loss Onset: 07-20-2009 03-17-2024 Chronic Comment on above: Outside Source Comme nt: Overview: 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] Onset: 12-21-2013 12-21-2013 Chronic Other eye disorders (5 sources) Nystagmus 07-24-2021 Chronic Other hereditary and [...] Chronic Other nutritional; endocrine; and metabolic disorders (5 sources) Body mass index 30+ - obesity 09-18-2021 Chronic Thyroid disorders (12 sources) Multinodular goiter; Translations: [Nontoxic multinodular goiter] [...] Test Name Value Interpretation Reference Range Facility Ambulatory Visit Summaryon 0 03-17-2024 Ambulatory Visit Summary Ambulatory Visit Summary RANIOLGARYAN Babb :1955 Visit Date:03/17/2024 Ambulatory Visit Instructions Your Diagnosis Kidney stone Hydronephrosis, right Flank pain Stress incontinence Simple renal cyst Tests Performed CT Abdomen/Pelvis w/o Contrast -- Results Pending -- Please visit your patient portal for your results or contact your primary care physician. Your Care Team Attending Physician - ANN SHANKAR PA-C Primary Care Physician - GERSON GONZALEZ JR, DO This Is Your Medications List Contact prescribing physician if questions or concerns ezetimibe fluoxetine (Prozac 20 mg Cap) levothyroxine (levothyroxine 25 mcg (0.025 mg) Tab) propranolol (propranolol 20 mg Tab) Procedures Performed Procedure on brain (10/2003), Ankle, Procedure on eye. Discharge Vitals Heart Rate (Peripheral) 80 Respiratory Rate 16 Blood Pressure 160/82 Height 175 cm Height 69 in Weight 95 kg Weight 209 lb BMI 31.02 What to do next Scheduled Follow-Up Appointments Thursday 11:00 AM EDT With: Franklin FLOYD, Lexi Regalado Where: [facility] [address] [place] [address] [place] [address]- You Need to Schedule the Following Appointments Follow Up with RAAD GONZALEZ, BUDDY MCKOY When: Where: [address] [place] [address] [phone] Medications What How Much When Instructions Unchanged ezetimibe By Mouth Every day Contact prescribing physician if questions or concerns Unchanged fluoxetine (Prozac 20 mg Cap) By Mouth Every day Contact prescribing physician if questions or concerns Unchanged levothyroxine (levothyroxine 25 mcg (0.025 mg) Tab) Contact prescribing physician if questions or concerns Unchanged propranolol (propranolol 20 mg Tab) 1 Tablets By Mouth As Directed Contact prescribing physician if questions or concerns Allergies No Known Allergies Problems Ongoing - Any problem that you are currently receiving treatment for. Arthritis BMI 31.0-31.9,adult Flank pain Headache Hearing loss Hydronephrosis, right Hypercalciuria Hyperlipidemia Hypothyroid Kidney stone Nerve pain Nystagmus Panic disorder Simple renal cyst Stress incontinence Visual impairment Patient Survey You may receive a survey via text or e-mail asking about your office visit. Please share your experience with us by completing your survey. We appreciate your feedback and thank you for choosing us for your care. Normal [facility] Urology Office/Clinic Noteon 03-17-2024 Urology Office/Clinic Note Urology Office/Clinic Note Chief Complaint Right flank pain HPI Staff 68 year old female patient today presents with right side pain . Previous Dx: kidney stone, simple renal cyst and stress incontinence. 2 weeks ago she was passing a kidney stone, right side pain did not see stone. CEASAR and XR done 03/15. about a week ago had a urine cx done with her PCP in [place]. Urine cx 03/09/24: negative PVR: 0 ml Dysuria: some burning when urinating Incomplete bladder emptying: yes Hematuria: denies visible blood Frequency: is going once every hour for a week or so Urgency: denies Nocturia: once a night Stream: denies hesitancy, has a steady stream Leaking: denies Post void dripping: denies Wearing pads/ Depends: denies Urge incontinence: denies Stress incontinence: leaks when coughing sometimes Incontinence without Sensory Awareness: denies Abdominal pain: no pain just some discomfort in lower abdomen when urinating Flank pain: right flank pain since 2 weeks ago off and on Sexual complaints: _ History of Present Illness staff HPI reviewed and agree. Review of Systems PHQ Score Initial Depression Screen Score: 0 SCORE no fever, chills, malaise, myalgia. no rash/lesions. no chest pain, palpitations, or SOB. no abdominal pain, nausea, vomiting. no unilateral calf swelling, redness, pain Physical Exam Vitals & Measurements HR: 80(Peripheral) RR: 16 BP: 160/82 HT: 69 in HT: 175 cm WT: 95 kg WT: 209 lb BMI: 31.02 General: nontoxic, NAD Mouth: moist mucosa Lungs: normal respiratory effort Cardio: regular rate, good distal perfusion Abdomen: nondistended, no suprapubic distention or tenderness, no CVA tenderness Neurologic: Grossly normal Skin: No rashes or suspicious lesions Assessment/Plan Dr. Reid pt 1. Kidney stone (N20.0: Calculus of kidney) CT AP 07/31/21 - Mild right hydroureter with periureteral stranding near the distal ureter without evidence of obstructing stone. And nonobstructing 3 mm nephrolithiasis within the superior pole of the left kidney. KUB 07/08/22 - Left superior pole renal calculus. US kidneys 07/08/22 - Nonobstructing superior pole left renal calculus. 07/31/21: Met w/u: WNL. BUN 19.0, CREA 0.79, Uric acid 4.1, PTH 24. 1/: 24hr urine Litholink: high calcium levels, advised patient to avoid taking calcium supplements and try to get these from food. 12/25/21: 24hr Litholink: Calcium improved from 448 to 232, Citrate improved 440 to 770, Sodium worsened from 222 to 237. Pt's Volume was [address] AP wo con 11/12/22 [facility] - Bilateral punctate nonobstructing nephrolithiasis (3 on right, 1 on left all < 1mm) . No hydro. KUB 06/08/23 [facility] - no stones id'd but bowel limits study. CEASAR 06/08/23 [facility] - nonobstructing bilateral renal stones, measuring up to 0.7cm in LLP. No hydro. Personal review: R measuring up to 7mm, L measuring 3-4mm. KUB 03/15/24 [facility] - No visible stones. CEASAR 03/15/24 [facility] - 7mm R nonobstructing nephrolith. Moderate R hydro. 6mm L nonobstructing nephrolith. No L hydro. [place] she was passing a stone 2wks ago. Had R flank pain. Had neg ucx 03/09/24 per PCP. Still having mild intermittent pain but not as bad. Reviewed imaging results with pt - may still have ureteral stone as she has moderate hydro and continued sx. PVR today 0 mL. UA today shows large blood and trace leuks. Discussed medical expulsive therapy and recommended pt to continue to increase water intake, start taking Flomax and antiinflammatories, and strain urine. Advised pt we will get CT scan now as well to better determine if stone is passable or has passed. -Schedule STAT CT AP wo con -Increase water intake, take ibuprofen for pain and start Flomax to help with stone passage, strain urine -Increase Ca intake with diet, if supplement needed per PCP then have with food. -Keep 04/06/24 f/u w/ KML, can discussed ureteroscopy at that time if pt has not passed stone 2. Hydronephrosis, right (N13.30: Unspecified hydronephrosis) See #1. 3. Flank pain (R10.9: Unspecified abdominal pain) See #1. 4. Stress incontinence (N39.3: Stress incontinence (female) (male)) BBS 11. Only has leakage with coughing with full bladder. Not bothersome enough to warrant tx. -Kegel exercises, timed voids 5. Simple renal cyst (N28.1: Cyst of kidney, acquired) CEASAR 06/08/23 [facility] - 1.3 x 1.5 x 1.0 cm simple cyst. [1] CEASAR 03/15/24 [facility] - 2mm area of anechoic echogenicity upper pole, simple cyst. No solid mass. -Simple cysts do not require monitoring Follow-up With When Contact Information Franklin FLOYD, Lexi Regalado, URL, [facility] [address] [place] [address]- [phone] Additional Instructions: keep 04/06/24 appt Patient Education Kidney Stones, Gdfu-mu-Duny Documentation recorded by the scribe Alejandra Garcia accurately reflects the services(s) I performed and decisions made by me. Authenticated by Ann Shankar PA-C on 03/17/2024 14:49:21. I, Alejandra Garcia, personally scribed for Ann Shankar PA-C on 03/17/2024 13:1 (more content not included)... [facility] Comment on above: Result Comment: Elec tronically Signed By: ANN SHANKAR PA-C\.br\Date and Time Signed: 03/17/24 14:49 EDT\.br\Electronically Co-Signed By: Alejandra Garcia\.br\Date and Time Co-Signed: 03/17/24 13:16 EDT Reminderson 12-30-2023 Reminders - From: Alejandra Garcia To: KER[facility] - León Reid; Sent: 06/24/2023 08:37:16 EST Show up: 11/23/2023 09:37:00 EDT Subject: KUB and CEASAR prior to appt Reminder Message Please Remember to:_have pt get KUB and CEASAR prior to appt. Pt has gone to [facility] in the past. KUB/CEASAR order faxed to [facility]. Called pt and left VM to return our call. Pt moved appointment back to 03/30/24 [facility] Creatinine (Bld) [Mass/Vol]O rdered By: Shasta Wade on 11-03-2023 Creatinine [Mass/Vol] 0.6 mg/dL 0.6-1.3 [facility] Comment on above: ER/ESD physician is notified/shown all ISTAT results.Critical values may be confirmed by laboratory testing ifdeemed necessary by ER attending doctor. ISTAT XRay CREon 11-03-2023 Creatinine [Mass/Vol] 0.6 mg/dL Normal 0.6-1.[address] [facility] Comment on above: Result Comment: ER/E SD physician is notified/shown all ISTAT results. Critical values may be confirmed by laboratory testing if deemed necessary by ER attending doctor. Performed By: #### I SCRE #### [address] ISTAT GFR > 60.[address] [facility] Comment on above: Result Comment: PERF ORMED BY: [place] [address] PATHOLOGIST [employer] TIFFANIE ROSS M.D. Performed By: #### I SCRE #### [address] MR head/brain wo/w conon MR head/brain wo/w con [facility] Main [place] [address] [place] [address] MRI Report Signed Patient: Ruperto Saravia MR#: [id number] : 1955 Acct:[id number] Age/Sex: 68 / F ADM Date: 11/03/23 Loc: Room: Type: [facility] Attending Dr: Shasta Wade PA-C Copies to: Shasta Wade PA-C Ordering Provider: Shasta Wade PA-C Date of Service: 11/03/23 MR/MR [...] Sanjiv Reis M.D.11/03/2023 3:10 PM Dictation Location: [place] [address] Transcribed By: [facility] 11/03/23 6850 Dictated By: Sanjiv Reis II, MD 11/03/23 1410 Signed By: 11/03/[address] [facility] No Panel InformationOrdered By: Shasta Wade on 11-03-2023 Bedside Estimated GFR (eGFR) > 60.0 [facility] CNCOon 10-14-2023 CNCO Letter Text Normal [facility] CNOVon 10-09-2023 CNOV Office Visit (OTOLMN ) RUPERTO SARAVIA ([id number]) 1955 F Date Time Provider Department 10/09/23 10:00 AM ADINA ROSALES During your visit today, we recorded the following information about you: Adina Rosales MD 10/18/2023 4:43 PM Signed [facility] Name: Ruperto Saravia Date of Service: 10/10/22 Patient ID: [...] orbicularis oculi, zygomaticus major, levator labii and surveillance specialist - Severe lateral pull of upper lip [...] units 1 site) = 2 U Left surveillance specialist (3u, 2 site) = 6 U Left procerus (3u, 1 site) = 3 U Left mentalis (2u, 3 sites) 6 U Left platysma (3u, 18 x sites) = 54 units Right TAMRA (3U 1 site)=3U Right surveillance specialist (2U, 2 sites) = 4U Right lateral orbicularis infrabrow= 2U, 1 site=2U Right platysma (3U u9ehpkw) = 9 U Total: 120 units used [...] MD Facial Plastic and Reconstructive Surgery Fellow [facility], [facility] Bogdan Mirza, RN 10/09/2023 10:38 AM Signed Tobacco Use: 1.5 packs/day, for 18 years. Quit 07/20/1999. Types: Cigarettes Was smoking cessation packet given? N/A - Patient is a non-smoker or quit >1 year ago. Was a referral initiated?N/A Patient is a non-smoker Allergies As of Date: 10/09/2023 Noted Allergy Reaction SEASONAL ALLERGIES 01/02/2010 9 - Itching Date Reviewed: 10/09/2023 Reviewed by: Bogdan Mirza, RN - Fully Assessed Reason for Visit: [...] disordr [M26.639] 04/24/2010 Myalgia and myositis, unspecified [[id number]] 05/07/2011 Unspecified disorder of muscle, ligament, and [...] a r (more content not included)... Normal [facility] Patient Educationon 06-24-20 Patient Education Nephrology Dietary [...] Spinach (cooked), rhubarb, beets, sweet potatoes, and Kuwaiti chard. ? Peanuts. ? Potato chips, northern irish fries, and baked potatoes with skin on. ? Nuts and nut products. ? Chocolate. ? If you regularly take a diuretic medicine, make sure to eat at least 1 or 2 servings of fruits or vegetables that are high in potassium each day. These include: ? Avocado. ? Banana. ? Gratz, prune, carrot, or tomato juice. ? Baked [...] fish oil, or vitamin B6. ? Take sauy-ajw-zmuexep and prescription medicines only as told by your health care provider. These include supplements. What foods sh (more content not included)... Normal [facility] Urology Office/Clinic Noteon 06-24-2023 Urology Office/Clinic Note [...] renal cyst (N28.1: Cyst of kidney, acquired) CEASAR 06/08/23 [facility] - 1.3 x 1.5 x [...] Information Franklin FLOYD, Lexi Regalado, URL, [facility] [address], [place] [address]- [phone] Additional Instructions: 6 mos w/ KUB and CEASAR Patient Education Dietary Guidelines to Help Prevent Kidney Stones I, Alejandra Garcia, personally scribed for Dr. Reid on 06/24/2023 08:35:40. . Documentation recorded by the scribe, Alejandra Garcia, accurately reflects the services(s) I performed and decisions made by me. Authenticated by Dr. Reid on 06/24/2023 08:45:01. Problem List/Past Medical History Ongoing Arthritis BMI 31.0-31.9,adult Flank pain Headache Hypercalciuria Hyperlipidemia Hypothyroid Kidney stone Nerve pain Nystagmus Panic disorder Simple renal (more content not included)... Normal [facility] Comment on above: Result Comment: Elec tronically Signed By: Lexi Reid MD\.br\Date and Time Signed: 06/24/23 08:45 EST\.br\Electronically Co-Signed By: Alejandra Garcia\.br\Date and Time Co-Signed: 06/24/23 08:35 EST RAD - MISCon 06-09-2023 RAD - MISC [id number]. 00TIFF Normal [facility] RAD - Ultrasound Reporton RAD - Ultrasound Report [id number]. 00TIFF [facility] CNOVon 04-10-2023 CNOV Office Visit (OTOLMN ) RANIRUPERTO ([id number]) 1955 F Date Time Provider Department 04/10/23 9:30 AM ADINA ROSALES [facility] During your visit today, we recorded the following information about you: Adina Rosales MD 04/10/2023 11:35 AM Signed [facility] Name: Ruperto Saravia Date of Service: 10/10/22 Patient ID: [...] orbicularis oculi, zygomaticus major, levator labii and surveillance specialist - Severe lateral pull of upper lip [...] (2u, 4 sites) = 8 U Left surveillance specialist (3u, 2 site) = 6 U Left [...] MD Facial Plastic and Reconstructive Surgery Fellow [facility], [facility] Macy Leyva RN 04/10/2023 9:45 AM Signed [...] disordr [M26.639] 04/24/2010 Myalgia and myositis, unspecified [[id number]] 05/07/2011 Unspecified disorder of muscle, ligament, and [...] SOLUTION* 04/10/ (more content not included)... Normal [facility] CT ABD/PELVIS WO CONon 11-12 CT ABD/PELVIS [...] by: ARMANDO HOLLINGSWORTH Date: 2022-11-12 11:22 Normal [facility] US KIDNEYSon 07-08-2022 US KIDNEYS US KIDNEYS EXAM DATE: 07/08/2022 5:54 AM MST COMPARISON: Same day radiograph, CT abdomen and pelvis without contrast 07/31/2021 INDICATION: History of kidney stones. TECHNIQUE: Real-time ultrasound scanning of the kidneys and bladder was performed by the sand filler. Sequins Stringer static images are submitted for review. FINDINGS: [...] by: JARAD BENAVIDES Date: 2022-07-08 16:58 Normal [facility] XR KUB 1 VIEWon 07-08-2022 XR [...] by: JARAD BENAVIDES Date: 2022-07-08 17:05 Normal [facility] XR DEXA BONE DENSITYon 06-05 XR [...] by: ARMANDO HOLLINGSWORTH Date: 2022-06-05 12:[address] [facility] [address] FOOT RT WO CONon 02-28-20 [...] by: ARMANDO HOLLINGSWORTH Date: 2022-02-27 18:17 Normal [facility] T4 FREE/FREE THYROXon 2021 Free T4 [Mass/Vol] 1.0 ng/dL 0.9 - 1.7 ng/dL [facility] TSH BLDon 11-12-2021 TSH Qn 2.420 m[IU]/L 0.270 - 4.200 mIU/L [facility] Vital Signs Date Time Vital Sign Value Performing Clinician Landy flores 03-17-2024 13:16-0400 Diastolic blood pressure 82 mm[Hg] ANN RAAD [facility] 03-17-2024 13:16-0400 Mean blood pressure 108 mm[Hg] ANN RAAD [facility] 03-17-2024 13:16-0400 Systolic blood pressure 160 mm[Hg] ANN RAAD [facility] 03-17-2024 12:51-0400 Blood Pressure Location ANN RAAD [facility] 03-17-2024 12:51-0400 Diastolic blood pressure 82 mm[Hg] ANN RAAD [facility] 03-17-2024 12:51-0400 Heart rate 80 /min ANN RAAD [facility] 03-17-2024 12:51-0400 Respiratory rate 16 /min ANN RAAD [facility] 03-17-2024 12:51-0400 Systolic blood pressure 160 mm[Hg] ANN SHANKAR [facility] 11-03-2023 11:21-0400 Body height 175.26 cm JR Gerson Gonzalez Work Phone: [facility] 11-03-2023 11:21-0400 Body weight 97.52 kg JR Gerson Gonzalez Work Phone: [facility] 11-26-2022 07:56-0400 Blood Pressure Location Lexi Lue [facility] 11-26-2022 07:56-0400 Diastolic blood pressure 67 mm[Hg] Lexi Lue [facility] 11-26-2022 07:56-0400 Heart rate 62 /min Lexi Lue [facility] 11-26-2022 07:56-0400 Systolic blood pressure 113 mm[Hg] Lexi Lue [facility] 01-15-2022 10:13-0400 Blood Pressure Location Lexi Lue [facility] 01-15-2022 10:13-0400 Diastolic blood pressure 73 mm[Hg] Lexi Lue [facility] 01-15-2022 10:13-0400 Heart rate 70 /min Lexi Lue [facility] 01-15-2022 10:13-0400 Respiratory rate 16 /min Lexi Durane [facility] 01-15-2022 10:13-0400 Systolic blood pressure 122 mm[Hg] Lexi Durane [facility] 11-12-2021 10:56-0400 Body height 175.3 cm Shawna Card MD, PhD Work Phone: [facility] 11-12-2021 10:56-0400 Body weight 98.88 kg Shawna Card MD, PhD Work Phone: [facility] 11-12-2021 10:56-0400 Diastolic blood pressure 74 mm[Hg] Shawna Card MD, PhD Work Phone: [facility] 11-12-2021 10:56-0400 Heart rate 64 /min Shawna Card MD, PhD Work Phone: [facility] 11-12-2021 10:56-0400 Systolic blood pressure 128 mm[Hg] Shawna Card MD, PhD Work Phone: [facility] Encounters Encounter Date Encounter Type Care Provider Facility Start: 04-08-2024 ambulatory Lexi M. Lue Facility:[facility] Start: 04-06-2024 ambulatory Lexi M. Lue Facility:[facility] Start: 03-30-2024 End: 03-30-2024 ambulatory ELIZABETH HILLIARD Facility:[facility] Start: 03-17-2024 End: 03-17-2024 ambulatory ANN SHANKAR Facility:[facility] [place] Start: 03-17-2024 End: 03-17-2024 Patient encounter procedure [facility] Start: 02-25-2024 End: 02-25-2024 ambulatory SHASTA WADE Not Available Start: 02-02-2024 End: 02-02-2024 ambulatory MICHAEL ODOMER Not Available Start: 01-28-2024 End: 01-28-2024 ambulatory MICHAEL Farmer FELTER Not Available Start: 01-11-2024 End: 01-11-2024 ambulatory GABRIEL BEYER Not Available Start: 12-28-2023 End: 12-28-2023 ambulatory SHASTA WADE Not Available Start: 12-10-2023 End: 12-10-2023 ambulatory SHASTA WADE Not Available Start: 11-12-2023 End: 11-12-2023 ambulatory SHASTA WADE Not Available Start: 11-03-2023 End: 11-03-2023 ambulatory Gerson Gonzalez Facility:[facility] Start: 11-03-2023 End: 11-03-2023 ambulatory JR Gerson Gonzalez Work Phone: [facility] Work Phone: Start: 11-03-2023 End: 11-03-2023 Patient encounter procedure JR Gerson Gonzalez Work Phone: [facility] [place] Work Phone: Start: 10-09-2023 End: 10-09-2023 ambulatory ADINA ROSALES Facility:[facility] Start: 08-24-2023 End: 08-24-2023 ambulatory JR Gerson Gonzalez Work Phone: [facility] Work Phone: Start: 08-24-2023 End: 08-24-2023 Patient encounter procedure JR Gerson Gonzalez Work Phone: [facility] [place] Work Phone: Start: 08-06-2023 End: 08-06-2023 ambulatory MICHAEL Farmer FELTER Not Available Start: 06-24-2023 End: 06-24-2023 ambulatory Lexi Reid Facility:[facility] Start: 06-24-2023 End: 06-24-2023 Patient encounter procedure Lexi Reid [facility] Start: 04-10-2023 End: 04-10-2023 ambulatory ELIZABETH HILLIARD Facility:[facility] Start: 04-10-2023 End: 04-10-2023 Patient encounter procedure Adina Rosales MD Work Phone: Otolaryngology Comment on above: Facial paralysis (Pr imary Dx) Start: 11-26-2022 End: 11-26-2022 Patient encounter procedure Lexi Reid [facility] Start: 11-12-2022 End: 11-13-[address] ARMANDO HOLLINGSWORTH Facility: Start: 09-10-2022 ambulatory Elizabeth Hilliard MD Work Phone: [facility] Start: 09-10-2022 Patient encounter procedure Elizabeth Hilliard MD Work Phone: Facial Plastics/Reconstruction Comment on above: Botox Appointment Start: 07-23-2022 End: 07-23-2022 Patient encounter procedure Lexi Reid [facility] Start: 07-08-2022 End: 07-09-2022 ambulatory LEXI Alcala Facility:[facility] Start: 06-05-2022 End: 06-06-[address] GERSON GONZALEZ Facility:[facility] Start: 05-16-2022 End: 05-16-2022 Patient encounter procedure Elizabeth Hilliard MD Work Phone: Facial Plastics/Reconstruction Comment on above: Facial nerve motor d isorder (Primary Dx) Start: 02-27-2022 End: 02-28-2022 ambulatory VINCENT PATRICA Facility:[facility] Start: 02-19-[address] GERSON GONZALEZ [facility] ity:[facility] Start: 01-15-2022 End: 01-15-2022 Patient encounter procedure Lexi Reid [facility] Start: 12-25-2021 End: 12-26-2021 ambulatory [facility] Facility:[facility] Start: 12-13-2021 End: 12-13-2021 Patient encounter [...] Patient encounter procedure Gerson Gonzalez Work Phone: -[facility] Procedures Date Procedure Procedure Detail Performing Clinician Start: 11-03-2023 MRI of head JR Gerson Lisa Work Phone: Start: 11-23-2020 Screening mammograph y of bilateral breasts Gerson Lisa Work Phone: Start: 10-19-2003 Procedure on brain Nasreen y [place] Ankle region structu re (body structure) Lexi Lue Procedure on eye Lexi Lue Plan of Treatment Date Care Activity Detail Author Start: 03-20-2023 Influenza vaccination Influenza Vacc ine (#1) [facility] Start: 07-20-2022 ADVANCE DIRECTIVE DISCUSSION ADVANCE DIRECTIVE DISCUSSION [facility] Start: 07-20-2022 DEPRESSION ASSESSMENT DEPRESSION ASS ESSMENT [facility] Start: 03-20-2022 Influenza vaccination C [facility] Start: 10-31-2021 COVID-19 VACCINE (4 - Booster for Pfizer series) COVID-19 VACCINE (4 - Booster for Pfizer series) [facility] Start: 2021 ADVANCE DIRECTIVE DISCUSSION ADVANCE DIRECTIVE DISCUSSION [facility] Start: 2021 BONE DENSITY BONE DENSITY [facility] Start: 2021 Bone Density Screening Bone Density Screening [facility] Start: 2021 Pneumococcal Vaccine : 65+ (1 - PCV) Pneumococcal Vaccine: 65+ (1 - PCV) [facility] Start: 2021 PNEUMOCOCCAL: 65+ (1 - PCV) PNEUMOCOCCAL: 65+ (1 - PCV) [facility] Start: 2021 PNEUMOVAX AGE 65 AND OVER WITH 5YR LOOKBACK (#1) PNEUMOVAX AGE 65 AND OVER WITH 5YR LOOKBACK (#1) [facility] Start: 08-27-2021 COVID-19 VACCINE (4 - Booster for Pfizer series) COVID-19 VACCINE (4 - Booster for Pfizer series) [facility] Start: 08-27-2021 Covid-19 Vaccine (4 - Pfizer series) Covid-19 Vaccine (4 - Pfizer series) [facility] Start: 07-20-2021 DEPRESSION ASSESSMENT DEPRESSION ASS ESSMENT [facility] Start: 12-24-2012 DIABETES SCREEN DIABETES SCREEN [facility] Start: 12-24-2012 Diabetes Screening Diabetes Screenin g [facility] Start: 2006 SHINGRIX VACCINE (1 of 2) SHINGRIX V ACCINE (1 of 2) [facility] Start: 2001 COLOGUARD (FIT-DNA) COLOGUARD (FIT-D NA) [facility] Start: 2001 Colonoscopy COLONOSCOPY [facility] Start: 2001 COLORECTAL CANCER SCREENING COLORECTAL CANCER SCREENING [facility] Start: [address] COLONOGRAPHY [facility] Start: 2001 FECAL OCCULT BLOOD FECAL OCCULT BLOO D [facility] Start: 2001 Lipid 1996 panel - S john or Plasma Lipid Screening [facility] Start: 2001 LIPID SCREEN LIPID SCREEN [facility] Start: 2001 SIGMOIDOSCOPY SIGMOIDOSCOPY [facility] Start: 1996 Mammography [facility] Start: 09-24-1975 Urine microalbumin profile [facility] Start: 1974 HEPATITIS C SCREENING HEPATITIS C SC REENING [facility] Start: 1974 HIV SCREENING HIV SCREENING [facility] Start: 1968 Adult depression scr eening assessment [facility] Immunizations Immunization Date Immunization Notes Care Provider Rosa tom 07-02-2021 SARS-CoV-2 (COVID-19 ) mRNA BNT-162b2 vax Lexi Lue [facility] 01-08-2021 SARS-CoV-2 (COVID-19 ) mRNA BNT-162b2 vax Lexi Lue [facility] 10-08-2020 SARS-CoV-2 (COVID-19 ) mRNA BNT-162b2 vax Lexi Lue [facility] 07-20-2020 SARS-CoV-2 (COVID-19 ) mRNA BNT-162b2 vax Lexi Lue [facility] Payers Date Payer Category Payer Self-pay [id number] 2023 Unknown [id number] 2017 Private Health Insurance [facility] UMR CHOICE PLUS [id number] 2017-Present [phone] [address] [address] [place] [address] O [id number] 2017 Private Health Insurance [facility] UMR CHOICE PLUS [id number] 2017-Present [phone] [address] [address] [place] [address] O [id number] 2012 Unknown DENTAL DENTAL GE NERIC [id number] 2012-Present [phone] [address] [address] [place] [address] Dental [id number] 2005 Medicare MEDICARE MEDICAR E A AND B [id number] 2005-Present [phone] [place] [address] Medicare [id number] 2005 Medicare MEDICARE MEDICAR E A AND B [id number] 2005-Present [phone] [place] [address] Medicare [id number] 1959 Medicare [id number] 1959 Private Health Insurance [id number] 1956 Unknown [id number] .840.1.433479.3.579.2. 593 1956 Unknown [id number] .840.1.493177.3.579.2. 59 1956 Unknown [id number] .840.1.327105.3.579.2. 593 1956 Unknown [id number] 2.16.840.1.019785.3.579.2. 593 1956 Unknown [id number] 2.16.840.1.160831.3.579.2. 593 1956 Unknown [id number] 2.16.840.1.377323.3.579.2. 593 1956 Unknown [id number] 2.16.840.1.215472.3.579.2. 1259 1956 Unknown [id number] 2.16.840.1.872949.3.579.2. 1259 1956 Unknown [id number] 2.16.840.1.978394.3.579.2. 1259 1956 Unknown [id number] 2.16.840.1.354340.3.579.2. 125 1956 Unknown [id number] 2.16.840.1.755740.3.579.2. 1259 1956 Unknown [id number] 2.16.840.1.943551.3.579.2. 1258 1956 Unknown [id number] 2.16.840.1.532755.3.579.2. 9 1956 Unknown [id number] 2.16840.1.962815.3.579.2. 1258 1956 Unknown [id number] 2.16840.1.474872.3.579.2. 727 1956 Unknown [id number] 2.16840.1.730917.3.579.2. 727 1956 Unknown [id number] 2.16840.1.445533.3.579.2. 727 1956 Unknown [id number] 2.16840.1.652998.3.579.2. 727 Medicare Self Pay [id number] Unknown [id number] Unknown [id number] 2.16840.1.508391.3.579.2. 531 Social History Date Type Detail [facility] Start: 1955 Sex Assigned At Female F [facility] Start: 09-18-2021 End: 03-17-2024 Tobacco smoking status NHIS Ex-smoker [facility] End: 07-20-1999 History of tobacco use Current smoker [facility] End: 07-20-1999 History of tobacco use Cigarette Smoker [facility] Start: 11-12-2021 End: 04-10-2023 Alcohol intake Current non-drinker of alcohol (finding) [facility] Start: 1955 Sex Assigned At Not on file [facility] Start: 11-02-2021 End: 05-16-2022 Exposure to SARS-CoV-2 (event) Not sure [facility] Start: 04-10-2023 Sex [facility]igned At [facility] Start: 05-16-2022 End: 04-10-2023 Cigarettes smoked current (pack per day) - Reported 1.5 [facility] Start: 05-16-2022 Tobacco use and exposure Smokeless tobacco non-user [facility] National Score (1-10 0), lower number is lower risk 87 [facility] Start: 12-12-2021 Gender identity Identifies as female gender (finding) [facility] Medical Equipment Procedure Code Equipment Code Equipment Origin al Text Equipment Identifier Dates Tyree Marrero 1.0g - [id number] Start: 12-24-2009 Goals Date Patient Goal Desired Activity /State Functional Status Date Assessment Result Facility 03-17-2024 Functional Status N/A [facility] 06-24-2023 Functional Status N/A [facility] 11-26-2022 Functional Status N/A [facility] 07-23-2022 Functional Status N/A [facility] 01-15-2022 Functional Status N/A [facility] Clinical Notes 11-12-2021 to 03-17-2024 Macy Leyva RN - 04/10/2023 9:45 AM Adina Carter MD - 04/10/2023 9:30 AM Bernadette Lowery RN - 05/16/2022 1:36 PM Yamilex Hilliard MD - 05/16/2022 1:30 PM EDT Note Date & Type Note Facility 03-17-2024 Hospital Discharg e instructions Patient Education 03/17/2024 13:15:00 Kidney Stones, Gcey-cm-Rqar Kidney Stones Kidney stones are rock-like masses [...] Follow these instructions at home: Medicines Take qant-zts-txwflvw and prescription medicines only as told by [...] with your health care provider. Document Revised: 03/10/2022 Document Reviewed: 03/10/2022 5 O'Clock Records Patient Education 2022 [employer]. Follow Up Care 03/17/2024 09:52:31 With:Franklin FLOYD, Lexi Regalado URL, [facility] Address: [address], [place] [address] [phone] When: Unknown [facility] [place] 03-17-2024 Note Patient Education Urology Kidney Stones Kidney stones are rock-like masses that form inside of the kidneys. Kidneys are organs that make pee (urine). A kidney stone may move into other parts of the urinary tract, including: ? The tubes that connect the kidneys to the bladder (ureters). ? The bladder. ? The tube that carries urine out of the body (urethra). Kidney stones can cause very bad pain and can block the flow of pee. The stone usually leaves your body (passes) through your pee. You may need to have a doctor take out the stone. What are the causes? Kidney stones may be caused by: ? A condition in which certain glands make too much parathyroid hormone (primary hyperparathyroidism). ? A buildup of a type of crystals in the bladder made of a chemical called uric acid. The body makes uric acid when you eat certain foods. ? Narrowing (stricture) of one or both of the ureters. ? A kidney blockage that you were born with. ? Past surgery on the kidney or the ureters, such as gastric bypass surgery. What increases the risk? You are more likely to develop this condition if: ? You have had a kidney stone in the past. ? You have a family history of kidney stones. ? You do not drink enough water. ? You eat a diet that is high in protein, salt (sodium), or sugar. ? You are overweight or very overweight (obese). What are the signs or symptoms? Symptoms of a kidney stone may include: ? Pain in the side of the belly, right below the ribs (flank pain). Pain usually spreads (radiates) to the groin. ? Needing to pee often or right away (urgently). ? Pain when going pee (urinating). ? Blood in your pee (hematuria). ? Feeling like you may vomit (nauseous). ? Vomiting. ? Fever and chills. How is this treated? Treatment depends on the size, location, and makeup of the kidney stones. The stones will often pass out of the body through peeing. You may need to: ? Drink more fluid to help pass the stone. In some cases, you may be given fluids through an IV tube put into one of your veins at the hospital. ? Take medicine for pain. ? Make changes in your diet to help keep kidney stones from coming back. Sometimes, medical procedures are needed to remove a kidney stone. This may involve: ? A procedure to break up kidney stones using a beam of light (laser) or shock waves. ? Surgery to remove the kidney stones. Follow these instructions at home: Medicines ? Take mbwx-exz-ygbwajq and prescription medicines only as told by your doctor. ? Ask your doctor if the medicine prescribed to you requires you to avoid driving or using heavy machinery. Eating and drinking ? Drink enough fluid to keep your pee pale yellow. You may be told to drink at least 8?10 glasses of water each day. This will help you pass the stone. ? If told by your doctor, change your diet. This may include: ? Limiting how much salt you eat. ? Eating more fruits and vegetables. ? Limiting how much meat, poultry, fish, and eggs you eat. ? Follow instructions from your doctor about eating or drinking restrictions. General instructions ? Collect pee samples as told by your doctor. You may need to collect a pee sample: ? 24 hours after a stone comes out. ? 8?12 weeks after a stone comes out, and every 6?12 months after that. ? Strain your pee every time you pee (urinate), for as long as told. Use the strainer that your doctor recommends. ? Do not throw out the stone. Keep it so that it can be tested by your doctor. ? Keep all follow-up visits as told by your doctor. This is important. You may need follow-up tests. How is this prevented? To prevent another kidney stone: ? Drink enough fluid to keep your pee pale yellow. This is the best way to prevent kidney stones. ? Eat healthy foods. ? Avoid certain foods as told by your doctor. You may be told to eat less protein. ? Stay at a healthy weight. Where to find more information ? National Kidney Foundation (NKF): www.kidney.org ? Urology Care Foundation (UCF): www.urologyhealth.org Contact a doctor if: ? You have pain that gets worse or does not get better with medicine. Get help right away if: ? You have a fever or chills. ? You get very bad pain. ? You get new pain in your belly (abdomen). ? You pass out (faint). ? You cannot pee. Summary ? Kidney stones are rock-like masses that form inside of the kidneys. ? Kidney stones can cause very bad pain and can block the flow of pee. ? The stones will often pass out of the body through peeing. ? Drink enough fluid to keep your pee pale yellow. This information is not intended to replace advice given to you by your health care provider. Make sure you discuss any questions you have with your health care provider. Document Revised: 03/10/2022 Document Reviewed: 03/10/2022 5 O'Clock Records Patient Education ? 2022 [employer]. [facility] 10-09-2023 Note HNO ID: [id number] Author: ADINA ROSAELS MD Service: ? Author Type: Physician Type: Progress Notes Filed: 10/18/2023 16:43 Note Text: [facility] [place] [facility]ive [facility] Name: Ruperto Saravia Date of Service: 10/10/22 Patient ID: [...] orbicularis oculi, zygomaticus major, levator labii and surveillance specialist - Severe lateral pull of upper lip [...] units 1 site) = 2 U Left surveillance specialist (3u, 2 site) = 6 U Left procerus (3u, 1 site) = 3 U Left mentalis (2u, 3 sites) 6 U Left platysma (3u, 18 x sites) = 54 units Right TAMRA (3U 1 site)=3U Right surveillance specialist (2U, 2 sites) = 4U Right lateral orbicularis infrabrow= 2U, 1 site=2U Right platysma (3U [id number]) = 9 U Total: 120 units used [...] MD Facial Plastic and Reconstructive Surgery Fellow [facility], [facility] 06-24-2023 Hospital Discharg e instructions Patient Education [...] include: ?8 oz (237 mL) of milk, whgsbxv-heldqqivbgim-pytza milk, and calcium-fortifiedfruit juice. Calcium-fortified means that [...] ?Spinach (cooked), rhubarb, beets, sweet potatoes, and Kuwaiti chard. ?Peanuts. ?Potato chips, northern irish fries, and baked potatoes with skin on. ?Nuts and nut products. ?Chocolate. If you regularly take a diuretic medicine, make sure to eat at least 1 or 2 servings of fruits or vegetables that are high in potassium each day. These include: ?Avocado. ?Banana. ?Gratz, prune, carrot, or tomato juice. ?Baked potato. [...] magnesium, fish oil, or vitamin B6. Take kwor-ffy-zjiwcrl and prescription medicines only as told by [...] Casseroles. Pizza. Lasagna. Frozen meals. Potato chips. Indonesian fries. The items listed above may not [...] provider. Document Revised: 10/16/2022 Document Reviewed: 10/16/2022 5 O'Clock Records Patient Education 2022 [employer]. Follow Up Care 11/26/2022 08:11:41 With:Franklin FLOYD, BUDDY Garcia, [facility] Address: [address], [place] [phone] When: Unknown Comments:6 mos w/ [facility] and [facility] 04-10-2023 Nurse Note Tobacco Use: 1.5 packs/day, for 18 years. Quit 07/20/1999. Types: Cigarettes Was smoking cessation packet given? N/A - Patient is a non-smoker or quit >1 year ago. Was a referral initiated?N/A Patient is a non-smoker documented in this encounter [facility] 04-10-2023 History of Presen t illness Narrative [facility] [place] [facility] Name: Ruperto Saravia Date of Service: 10/10/22 Patient ID: [...] orbicularis oculi, zygomaticus major, levator labii and surveillance specialist - Severe lateral pull of upper lip [...] (2u, 4 sites) = 8 U Left surveillance specialist (3u, 2 site) = 6 U Left [...] MD Facial Plastic and Reconstructive Surgery Fellow [facility] [place] documented in this encounter [facility] 04-10-2023 Note HNO ID: [id number] Author: Adina Rosales MD Service: ? Author Type: Physician Type: Progress Notes Filed: 04/10/2023 11:35 AM Note Text: [facility] [place] [facility]ive [facility] Name: Ruperto Saravia Date of Service: 10/10/22 Patient ID: [...] orbicularis oculi, zygomaticus major, levator labii and surveillance specialist - Severe lateral pull of upper lip [...] (2u, 4 sites) = 8 U Left surveillance specialist (3u, 2 site) = 6 U Left [...] injections, sooner for filler Patient will send kamillat, does not wish to schedule at this time Adina Rosales MD Facial Plastic and Reconstructive Surgery Fellow [facility], [facility] 11-26-2022 Hospital Discharg e instructions Patient Education [...] include: ?8 oz (237 mL) of milk, byxqzue-pbjawnhsadzf-pzbec milk, and calcium-fortifiedfruit juice. Calcium-fortified means that [...] ?Spinach (cooked), rhubarb, beets, sweet potatoes, and Kuwaiti chard. ?Peanuts. ?Potato chips, northern irish fries, and baked potatoes with skin on. ?Nuts and nut products. ?Chocolate. If you regularly take a diuretic medicine, make sure to eat at least 1 or 2 servings of fruits or vegetables that are high in potassium each day. These include: ?Avocado. ?Banana. ?Gratz, prune, carrot, or tomato juice. ?Baked potato. [...] magnesium, fish oil, or vitamin B6. Take peiq-ric-fpldjhy and prescription medicines only as told by [...] Casseroles. Pizza. Lasagna. Frozen meals. Potato chips. Indonesian fries. The items listed above may not [...] provider. Document Revised: 03/17/2022 Document Reviewed: 03/17/2022 5 O'Clock Records Patient Education 2022 [employer]. Follow Up Care 07/23/2022 11:38:48 With:Franklin FLYOD, BUDDY Garcia, [facility] Address: When: Unknown [facility] Hospital Discharg e instructions Patient Education 07/23/2022 11:37:41 Kidney Stones, Jbmp-jt-Awpf Kidney Stones Kidney stones are rock-like masses [...] Follow these instructions at home: Medicines Take yywi-bsu-gdctmti and prescription medicines only as told by [...] 12/22/2008 Document Revised: 11/22/2019 Document Reviewed: 11/22/2019 5 O'Clock Records Patient Education 2020 [employer]. Follow Up Care 01/15/2022 10:50:51 With:Franklin FLOYD, BUDDY Garcia, [facility] Address: [address] [place], [place] [address], [place] [address] [phone] When:Within 3 Month(s) Comments:matilde RUBIO w/o [facility] 05-16-2022 History of Presen t illness Narrative Botox 50U with 0.5ml NaCl Lot [id number] Exp 11/2024 [facility] [place] [facility] Name: Ruperto Sandraranda Date of Service: 05/16/2022 Patient ID: [id number] [...] orbicularis oculi, zygomaticus major, levator labii and surveillance specialist -Severe lateral pull of upper lip to [...] (2u, 4 site) = 8 u Left surveillance specialist (3u, 2 site) = 6 U Left [...] for repeat botox injections Elizabeth Hilliard MD [facility], Facial Plastic and Microvascular Surgery By signing my name below, I, Adrian Coco, attest that this documentation has been prepared under the direction and in the presence of Dr. Elizabeth Hilliard. Electronically signed, Lita Middleton May 16, 2022 2:59 PM I have reviewed and edited above documentation and it accurately reflects assessment, work and decisions made by me. Elizabeth Hilliard MD [facility], Facial Plastic and Microvascular Surgery UNIVERSAL PROTOCOL [...] Elizabeth Hilliard MD documented in this encounter [facility] 05-16-2022 Nurse Note Tobacco Use: 1.5 packs/day, for 18 years. Quit 07/20/1999. Types: Cigarettes Was smoking cessation packet given? N/A - Patient is a non-smoker or quit >1 year ago. Was a referral initiated?N/A Patient is a non-smoker documented in this encounter [facility] 01-15-2022 Hospital Discharg e instructions Patient Education 01/15/2022 10:39:00 Kidney Stones, Vkss-dg-Mniw Kidney Stones Kidney stones are rock-like masses [...] Follow these instructions at home: Medicines Take prmq-pfe-ihonxog and prescription medicines only as told by [...] 12/22/2008 Document Revised: 11/22/2019 Document Reviewed: 11/22/2019 5 O'Clock Records Patient Education 2019 [employer]. Follow Up Care 09/18/2021 11:24:57 With:Franklin FLOYD, Lexi Regalado, URL, [facility] Address: [address], [place] [phone] When:07/17/2022 Comments:CONCETTA MCDONOUGH [facility] 12-25-2021 Note PROCEDURE: XR FOOT R T MIN 3 VIEWS COMPARISON: 02/06/2021 HISTORY: Pain in right foot FINDINGS: BONES:No acute fracture or dislocation. Moderate enthesopathic spurring of the calcaneus. Stable corticated calcific density lateral to the cuboid SOFT TISSUES:Negative. No visible soft tissue swelling. EFFUSION:None visible. OTHER: Negative. IMPRESSION: No acute fracture Electronically authenticated by: ARMANDO HOLLINGSWORTH Date: 2021-12-25 16:49 [facility] 12-13-2021 History of Presen t illness Narrative Head and Neck [place] [facility] Name: Ruperto Saravia Date of Service: 12/13/2021 Last Visit: [...] orbicularis oculi, zygomaticus major, levator labii and surveillance specialist severe lateral pull of upper lip to [...] (2u, 2 sites) = 4 U left surveillance specialist (3u, 2 site) = 6 U left [...] the presence of Dr. Hilliard Electronically signed, Lita Sesay December 13, 2021 1:29 PM I have reviewed and edited above documentation and it accurately reflects assessment, work and decisions made by me. Elizabeth Hilliard MD [facility] Head and Neck [place], Facial Plastic and Microvascular Surgery Procedure: Botox Injections Informed Consent Consent Obtained: Written [place] Protocol A moment to CARE was completed [...] completed when applicable documented in this encounter [facility] 11-19-2021 Miscellaneous Notes Notified pt of message, [...] 1.7 ng/dL 1.0 documented in this encounter [facility] 11-12-2021 History of Presen t illness Narrative [...] Ab (IU/mL) Date Value 08/03/2018 4.3 HPI: Rupetro Saravia is a 66 year old female [...] sixth or abducens nerve palsy 06/01/2008 Stroke (HCC) Social History: Social History Tobacco Use Smoking [...] Card MD, PhD documented in this encounter [facility] Evaluation + Plan note Future Appointments Appointment Date:07/23/2022 10:00:00 AM Scheduled Provider:Lexi Reid MD Location:[facility] Appointment Type:URO Office Visit [facility] Evaluation + Plan note Future Appointments Appointment Date:10/29/2022 10:15:00 AM Scheduled Provider:Lexi Reid MD Location:[facility] Appointment Type:URO Office Visit [facility] Evaluation + Plan note Future Appointments Appointment Date:06/24/2023 08:00:00 AM Scheduled Provider:Lexi Reid MD Location:[facility] Appointment Type:URO Office Visit [facility] Evaluation + Plan note Future Appointments Appointment Date:01/06/2024 09:00:00 AM Scheduled Provider:Lexi Reid MD Location:[facility] Appointment Type:URO Office Visit [facility] Evaluation + Plan note Future Appointments Appointment Date:04/06/2024 11:00:00 AM Scheduled Provider:Lexi Reid MD Location:[facility] Appointment Type:URO Office Visit [facility] Evaluation note No Assessments Infor mation Available [facility] Evaluation note Diagnosis Multiple thyroid nodules- Primary Nontoxic multinodular goiter Obesity, Class I, BMI 30-34.9 Obesity, unspecified Vasomotor symptoms due to menopause [facility] Diagnosis 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 Facial nerve disorder, unspecified [facility] Diagnosis Facial nerve motor disorder- Primary Facial nerve disorder, unspecified [facility]* Diagnosis 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 [facility]No assessment [facility] Work Phone: Hospital course Narrative No data available for this section [facility] progress note No data available for this section [facility] Advance Directives No Advanced Directives Records Found Advance Directive Response Recorded Date/ Time Advance Directives No May 2:55pm Documents on File Type Date Recorded Patient Sequins Stringer 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 Advance Directive(s) 06/24/2019 7:51 AM Advance Directive(s) 06/01/2018 7:17 AM Advance Directive(s) 05/27/2018 1:38 PM Advance Directive(s) 12/12/2009 8:53 PM Documents on File Type Date Recorded Patient Sequins Stringer 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 Advance Directive(s) 06/24/2019 7:51 AM Advance Directive(s) 06/01/2018 7:17 AM Advance Directive(s) 05/27/2018 1:38 PM Advance Directive(s) 12/12/2009 8:53 PM Documents on File Type Date Recorded Patient Sequins Stringer 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 Advance Directive(s) 12/12/2009 8:53 PM Advance Directive Response Recorded Date/ Time Advance Directives No May 1:55pm Chief Complaint and Reason for Visit Chief Complaint Screening Chief Complaint Q27.30 R44.1 Reason for Referral Specialty Diagnoses / Procedures Referred By Contac t Referred To Contact Diagnoses Vasomotor symptoms due to menopause Procedures CONSULT TO WOMEN'S HEALTH OFFICE/OUTPATIENT [facility] 60-74 MINUTES Shawna Card MD, PhD [address] [place] [address] Vicki Kiser MD [address] [place] [address] Referral ID Status Reason Start Date Expiration Date Visits Requested Visits Authorized [id number] Authorized PCP Requested Referral Auto-Generate d Referral [...] History Records FoundNo Family History Records Found No data available [...] or prosecute any alcohol or drug abuse patient.[facility] the event this information is protected by the Federal Confidentiality of Alcohol and Drug Abuse Patient Records regulations: The Federal rules restrict any use of the information to criminally investigate or prosecute any alcohol or drug abuse patient.[facility] HealthcareIn the event this information is protected by the Federal Confidentiality of Alcohol and Drug Abuse Patient Records regulations: The Federal rules restrict any use of the information to criminally investigate or prosecute any alcohol or drug abuse patient.[facility] HealthcareIn the event this information is protected by the Federal Confidentiality of Alcohol and Drug Abuse Patient Records regulations: The Federal rules restrict any use of the information to criminally investigate or prosecute any alcohol or drug abuse patient.[facility] HealthcareIn the event this information is protected by the Federal Confidentiality of Alcohol and Drug Abuse Patient Records regulations: The Federal rules restrict any use of the information to criminally investigate or prosecute any alcohol or drug abuse patient.[facility] HealthcareIn the event this information is protected by the Federal Confidentiality of Alcohol and Drug Abuse Patient Records regulations: The Federal rules restrict any use of the information to criminally investigate or prosecute any alcohol or drug abuse patient.[facility] Reason for Visit (unrecogniz ed section and content) Reason Comments Facial nerve spasm Facial nerve spasm, Botox Specialty Diagnoses / Procedures Referred By Contact Referred To Contact Ent - Otolaryngology / ENT-FACIAL PLASTICS Diagnoses 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, unspecified Alcala's palsy Repeat medical botox injections Procedures BOTULINUM TOXIN A PER 1 UNIT [facility] INN[facility] F[facility]IAL NRV UNIL RENEWAL REQUEST INJECTABLE (100 UNITS EVERY 3-4 MONTHS FOR 1 YR) [place] [address] [place] [address] Elizabeth Hilliard MD [address] [place] [address] Referral ID Status Reason Start Date Expiration Date V isits Requested Visits Authorized [id number] Authorized 12/13/2021 10/24/2022 99 99 Reason Comments Thyroid Problem Reason Comments Results Reason Comments Botox Injection Referral ID Status Reason Start Date Expiration Date V isits Requested Visits Authorized [id number] Pending Review 12/13/2021 12/12/2022 4 4 Reason Comments Follow Up Botox Specialty Diagnoses / Procedures Referred By Alisson lin Referred To Contact ENT-OTOLARYNGOLOGY 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 Renewal medical botox Procedures [facility] INNERVATED FACIAL NRV UNIL BOTULINUM TOXIN A PER 1 UNIT Med botox 100 units every 3-4 months for 1 year Elizabeth Hilliard MD [address] [place] [address] Elizabeth Hilliard MD [address] [place] [address] Referral ID Status Reason Start Date Expiration Date V isits Requested Visits Authorized [id number] Authorized 04/01/2023 03/31/2024 99 99 Care Teams (unrecognized sec tion and content) Emergency Services Professional Relationship Specialty Start Date End Date Gerson Gonzalez Jr. [address] [facility] [address] [place] [address] PCP - General 08/24/01 Emergency Services Professional Relationship Specialty Start Date End Date Gerson Gonzalez Jr. [address] [place] [address] PCP - General 08/24/01 Emergency Services Professional Relationship Specialty Start Date End Date Gerson Gonzalez Jr. [address] [place] [address] PCP - General 08/24/01 Emergency Services Professional Relationship Specialty Start Date End Date Gerson Gonzalez Jr. [address] [facility] [address] [place] [address] PCP - General 08/24/01 Emergency Services Professional Relationship Specialty Start Date End Date Gerson Gonzalez Jr. [address] [facility] [address] [facility] [place] [address] PCP - General 08/24/01 Emergency Services Professional Relationship Specialty Start Date End Date Gerson Gonzalez Jr. [facility] [address] PCP - General 08/24/01 Team Status: Active Member Role Status Dates Gerson Owens JR Lisa DO Primary Care Provider Active Team Status: Inactive Member Role Status Dates Gerson Gonzalez JR DO Primary Care Provider Active Start: August 24, 2023 End: August 24, 2023 Shasta Wade PA-C Attending Provider Active Sta rt: August 24, 2023 End: August 24, 2023 Team Status: Inactive Member Role Status Dates Gerson Owens JR LAMONT Gonzalez Primary Care Provider Active Start: November 03, 2023 End: November 03, 2023 Shasta Wade PA-C Attending Provider Active Sta rt: November 03, 2023 End: November 03, 2023 INFORMATION SOURCE (unrecogn ized section and content) DATE CREATED AUTHOR 11/15/2022 [facility] DATE CREATED AUTHOR AUTHOR'S ORGANIZ ATION 11/07/2023 [facility] DATE CREATED AUTHOR AUTHOR'S ORGANIZ ATION 02/28/2024 [facility] DATE CREATED AUTHOR AUTHOR'S ORGANIZ ATION 03/18/2024 [facility] DATE CREATED AUTHOR AUTHOR'S ORGANIZ ATION 04/01/2024 [facility] Goals (unrecognized section and content) Goals may [...] BE BASED ON THE PRIMARY CLINICAL RECORDS. [facility]. provides no warranty or guarantee of the accuracy or completeness of information in this document.
--- NOTE | 2024-04-07 08:14 | XR_ITS ---
The [address] [address] Patient Name: RUPERTO SARAVIA MRN: [id number] date: 1955 Sex: F Assigned Patient Location: Current Patient Location: Accession/Order Number: [id number] Exam Date: 04/07/2024 08:12 Report Date: 04/08/2024 08:12 At the request of: KERA STEELE Procedure: XR abdomen 1V EXAMINATION: XR abdomen 1V HISTORY: kidney stones N20.0 COMPARISON: 03/15/2024 FINDINGS: KIDNEY/URETER - RIGHT: No visible renal or ureteral calcifications. KIDNEY/URETER - LEFT: No visible renal or ureteral calcifications. PELVIS: No visible ureteral calcifications. Any visible calcifications favor phleboliths. BOWEL: No abnormal dilation or deviation. BONES: No acute abnormality. OTHER: Negative. No abnormal gaseous collections. XR/XR abdomen 1V IMPRESSION: No definite urinary tract calculi Electronically authenticated by: ARMANDO HOLLINGSWORTH Date: 04/08/2024 08:12
== END 2024-04-07 07:47 | disposition home or self-care (01) ==
LOC: US 07:46
PROVIDERS: PCP Internal Medicine; Visit Provider Urology
DX: N20.0 Calculus of kidney (principal); N13.30 Unspecified hydronephrosis
CPT/HCPCS: 74018; 76775

== ENCOUNTER 2024-04-21 11:37 | Outpatient (OUT) | payer MEDICARE, OTHER, SELFPAY ==
--- NOTE | 2024-04-21 | XR_ITS ---
The [address] [address] Patient Name: RUPERTO SARAVIA MRN: [id number] date: 1955 Sex: F Assigned Patient Location: Current Patient Location: Accession/Order Number: [id number] Exam Date: 04/21/2024 11:37 Report Date: 04/22/2024 06:10 At the request of: VINCENT BURCIAGA Procedure: XR foot LT min 3V PROCEDURE: XR foot LT min 3V HISTORY: LEFT FOOT PAIN , medial midfoot and forefoot pain; painful lump on left foot COMPARISON: XR ankle left 08/21/2020 FINDINGS: BONES:No fracture, acute abnormality, or significant arthropathy. Prior mechanical repair of distal fibula via a lateral plate and screws and fusion of the syndesmosis. SOFT TISSUES:No visible soft tissue swelling. EFFUSION:None visible. OTHER: Negative. XR/XR foot LT min 3V IMPRESSION: 1. No acute abnormality or significant degenerative changes of the foot to account for patient's symptoms. 2. Stable surgical changes of the distal fibula and tibia with persistent lucency surrounding the screws, but no appreciable hardware loosening. Electronically authenticated by: RAFAEL WARE Date: 04/22/2024 06:10
--- OUTSIDE RECORDS SUMMARY | 2024-04-21 11:50 | XMS_ITS | CCD ---
Author Organization [facility] CliniSyaz Care Team Providers Care City Bailiff Name Role Phone Gerson Gonzalez Primary Care Provider [phone] Self, Referral Attending Provider Unavailable Starr Carson, Gerson Marquez Primary Care Provider GERSON GONZALEZ JR Primary Care Physician Gerson Gonzalez Jr. Primary Care Provider Gerson Gonzalez Jr. Primary Care Provider DARRICK, DR ARMANDO Melo Consulting Unavailable VALONE, DR NIETO Primary Care Unavailable LEXI DIETZ Admitting Unavailable LEXI DIETZ Attending Unavailable LEXI DIETZ Consulting Unavailable VALONE, DR NIETO Primary Care Unavailable VINCENT BURCIAGA Attending Unavailable VINCENT BURCIAGA Admitting Unavailable CASSANDRA, ALHAJI Reis Attending Unavailable ALHAJI TRUJILLO Admitting Unavailable VALONE, DR NIETO Primary Care Unavailable DARRICK, DR ARMANDO Melo Consulting Unavailable ALHAJI TRUJILLO Consulting Unavailable VINCENT BURCIAGA Admitting Unavailable VALONE, DR NIETO Primary Care Unavailable DARRICK, DR ARMANDO Melo Consulting Unavailable VINCENT BURCIAGA Attending Unavailable VINCENT BURCIAGA Consulting Unavailable VALONE, DR NIETO Primary Care Unavailable VALONE, DR NIETO Admitting Unavailable VALONE, DR NIETO Attending Unavailable VALONE, DR NIETO Consulting Unavailable WEST, DR ARMANDO Melo Consulting Unavailable FRANKLIN .LEXI Admitting Unavailable VALONE, DR NIETO Primary Care Unavailable LEXI DIETZ Attending Unavailable LEXI DIETZ Consulting Unavailable JARAD BENAVIDES Consulting Unavailable JR Gerson Gonzalez Primary Care Provider CARLOS Wade Attending Provider JR Gerson Gonzalez Primary Care Provider CARLOS Wade Attending Provider Gerson Gonzalez Primary Care Unavailable Shasta Wade Attending Unavailable Shasta Wade Admitting Unavailable MICHAEL CRUZ Attending Unavailable SHASTA WADE Attending Unavailable SHASTA WADE Referring Unavailable SHASTA WADE Attending Unavailable GABRIEL BEYER Attending Unavailable MICHAEL CRUZ Attending Unavailable MAURO, SHASTA Attending Unavailable ELIZABETH HILLIARD Referring Unavailable ADINA ROSALES Attending Unavailable GERSON GONZALEZ JR Primary Care Unavail able ELIZABETH HILLIARD Attending Unavailable ELIZABETH HILLIARD Referring Unavailable GERSON GONZALEZ JR Primary Care Unavail able ADINA ROSALES Attending Unavailable STARR MUNROE, GERSON MARQUEZ Primary Care Unavail able Lexi Reid Attending Unavailable Lexi Reid Attending Unavailable ANN SHANKAR Attending Unavailable Lexi Reid Attending Unavailable Lexi Reid Attending Unavailable Lexi Reid Attending Unavailable Allergies Allergy Classification Reported Allergen(s) Allergy Type Date of Onset Reaction(s) Facility (7 sources) Seasonal allergy; Translations: [SEASONAL ALLERGIES] Propensity to adverse reactions 0 Itching [facility] (1 source) Unable to Assess Drug allergy (disorder) [address] [facility] Repository Medications Current Medications Medication Drug Class(es) [...] as needed. FLUoxetine 20 mg oral capsule (13 sources) Serotonin Reuptake Inhibitor Start: 11-26-2022 take [...] day levothyroxine sodium 0.025 mg oral tablet (4 sources) l-Thyroxine Start: 3 levothyroxine 25 mcg (0.025 mg) Tab Refills(s) 0 Start Date: 06/24/23 Status: Ordered propranolol hydrochloride 20 mg oral tablet (13 sources) beta-Adrenergic Vamshi Start: 2 propranolol 20 mg Tab 20 mg = 1 tab(s), Oral, As Directed Start Date: 07/24/21 Status: Ordered Comment on above: as needed. tamsulosin hydrochloride 0.4 mg oral capsule (3 sources) alpha-Adrenergic Vamshi Start: 4 take 1 capsule by mouth once daily tamsulosin 0.4 mg Cap 0.4 mg = 1 cap(s), Oral, Daily, # 30 cap(s), Refills(s) 0, Pharmacy: [facility]/pharmacy #[id number], 175, cm, 03/17/24 12:54:00 EDT, Height/Length [...] then stop. 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 Blindness and vision defects (1 source) Visual hallucinations; Translations: [Visual hallucinations] Onset: 11-03-2023 Episodic Calculus of urinary tract (17 sources) Kidney stone; Translations: [Calculus of kidney] Onset: 01-15-2022 Episodic Cardiac and circulatory congenital anomalies (6 sources) Congenital anomaly of cerebrovascular system; Translations: [Other malformations of cerebral vessels] Onset: 07-17-2005 04-01-2018 Chronic Disorders of lipid metabolism (7 sources) Hyperlipidemia 07-24-2021 Chronic Genitourinary symptoms and ill-defined conditions (9 sources) Stress incontinence (female) (male); Translations: [Genuine stress incontinence] Onset: 11-26-2022 Chronic Genitourinary symptoms and ill-defined conditions (8 sources) Hypercalciuria; Translations: [Hypercalciuria] Onset: 01-15-2022 Episodic Headache; including migraine (7 sources) Headache 07-24-2021 Episodic Menopausal disorders (7 sources) Menopausal syndrome; Translations: [Menopausal and female climacteric states] Onset: 11-12-2021 Chronic Osteoarthritis (11 sources) Arthritis; Translations: [Primary osteoarthritis, right ankle and foot] Onset: 02-27-2022 07-24-2021 Chronic Other connective tissue disease (7 sources) Neuralgia 07-24-2021 Episodic Other diseases of kidney and ureters (3 sources) Acquired renal cyst without neoplastic change; Translations: [Cyst of kidney, acquired] Onset: 06-24-2023 Episodic Other diseases of kidney and ureters (4 sources) Simple renal cyst 06-24-2023 Episodic Other diseases of kidney and ureters (3 sources) Hydronephrosis; Translations: [Unspecified hydronephrosis] Onset: 03-17-2024 Episodic Other diseases of kidney and ureters (1 source) Urinary tract obstruction; Translations: [Hydronephrosis with renal and ureteral calculous obstruction] Onset: 04-13-2024 Episodic Other ear and sense organ disorders (3 sources) Hearing loss Onset: 07-20-2009 03-17-2024 Chronic Comment on above: Outside Source Comme nt: Overview: 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] Onset: 12-21-2013 12-21-2013 Chronic Other eye disorders (7 sources) Nystagmus 07-24-2021 Chronic Other hereditary and [...] Chronic Other nutritional; endocrine; and metabolic disorders (7 sources) Body mass index 30+ - obesity 09-18-2021 Chronic Thyroid disorders (14 sources) Multinodular goiter; Translations: [Nontoxic multinodular goiter] Onset: 11-12-2021 Chronic Unclassified (1 source) Obstructive hydronephrosis 04-13-2024 Past or Other Problems Problem Classification Problem [...] Reference Range Facility Ambulatory Visit Summaryon 0 04-13-2024 Ambulatory Visit Summary Ambulatory Visit Summary RUPERTO SARAVIA :1955 Visit Date:04/13/2024 Ambulatory Visit Instructions Your Diagnosis Kidney stone Stress incontinence Hydronephrosis, right Flank pain Simple renal cyst Your Care Team Attending Physician - Lue MD, Lexi M. Primary Care Physician - GERSON GONZALEZ JR, DO This Is Your Medications List ezetimibe fluoxetine (Prozac 20 mg Cap) levothyroxine (levothyroxine 25 mcg (0.025 mg) Tab) propranolol (propranolol 20 mg Tab) tamsulosin (tamsulosin 0.4 mg Cap) Procedures Performed Procedure on brain (10/2003), Ankle, Procedure on eye. Discharge Vitals Heart Rate (Peripheral) 68 Respiratory Rate 16 Blood Pressure 118/76 Height 175 cm Height 69 in Weight 95 kg Weight 209 lb BMI 31.02 What to do next You Need to Schedule the Following Appointments Follow Up with Franklin FLOYD, Lexi Regalado, URL, URO When: Comments: Sched R laser litho Where: Medications What How Much When Instructions Unchanged ezetimibe By Mouth Every day Unchanged fluoxetine (Prozac 20 mg Cap) By Mouth Every day Unchanged levothyroxine (levothyroxine 25 mcg (0.025 mg) Tab) Unchanged propranolol (propranolol 20 mg Tab) 1 Tablets By Mouth As Directed Unchanged tamsulosin (tamsulosin 0.4 mg Cap) 1 Capsules By Mouth Every day Allergies No Known Allergies Problems Ongoing - [...] you for choosing us for your care. Education Materials Kidney Stones Kidney stones are solid, rock-like deposits that form inside of the kidneys. The kidneys are a pair of organs that make urine. A kidney stone may form in a kidney and move into other parts of the urinary tract, including the tubes that connect the kidneys to the bladder (ureters), the bladder, and the tube that carries urine out of the body (urethra). As the stone moves through these areas, it can cause intense pain and block the flow of urine. Kidney stones are created when high levels of certain minerals are found in the urine. The stones are usually passed out of the body through urination, but in some cases, medical treatment may be needed to remove them. What are the causes? Kidney stones may be caused by: ? A condition in which certain glands produce too much parathyroid hormone (primary hyperparathyroidism), which causes too much calcium buildup in the blood. ? A buildup of uric acid crystals in the bladder (hyperuricosuria). Uric acid is a chemical that the body produces when you eat certain foods. It usually leaves the body in the urine. ? Narrowing (stricture) of one or both of the ureters. ? A kidney blockage that is present at (congenital obstruction). ? Past surgery on the kidney or the ureters. What increases the risk? The following factors may make you more likely to develop this condition: ? Having had a kidney stone in the past. ? Having a family history of kidney stones. ? Not drinking enough water. ? Eating a diet that is high in protein, salt (sodium), or sugar. ? Being overweight or obese. What are the signs or symptoms? Symptoms of a kidney stone may include: ? Pain in the side of the abdomen, right below the ribs (flank pain). Pain usually spreads (radiates) to the groin. ? Needing to urinate often or urgently. ? Painful urination. ? Blood in the urine (hematuria). ? Nausea. ? Vomiting. ? Fever and chills. How is this diagnosed? This condition may be diagnosed based on: ? Your symptoms and medical history. ? A physical exam. ? Blood tests. ? Urine tests. These may be done before and after the stone passes out of your body through urination. ? Imaging tests, such as a CT scan, abdominal X-ray, or ultrasound. ? A procedure to examine the inside of the bladder (cystoscopy). How is this treated? Treatment for kidney stones depends on the size, location, and makeup of the stones. Kidney stones will often pass out of the body through urination. You may need to: ? Increase your fluid intake to help pass the stone. In some cases, you may be given fluids through an IV and may need to be monitored in the hospital. ? Take medicine for pain. ? Make changes in your diet to help prevent kidney stones from coming back. Sometimes, procedures are needed to remove a kidney stone. This may involve: ? A procedure to break up kidney stones using: ? A focused beam o (more content not included)... Normal [facility] Urology Office/Clinic Noteon 09-25-2024 Urology Office/Clinic Note Urology Office/Clinic Note Chief Complaint 9 month follow up with CONCETTA, CEASAR HPI Staff 68 yr old KML patient here for 9 month f/u w/ KUB and CEASAR. KUB and CEASAR done 04/07/24 at [facility]. Per pt one stone passed about 2 weeks ago. Previous Dx: kidney stone, simple renal cyst and stress incontinence. Dysuria: denies Incomplete bladder emptying: denies Hematuria: denies Frequency: denies Urgency: denies Nocturia: once a night Stream: denies hesitancy, has a steady stream Leaking: denies Post void dripping: denies Wearing pads/ Depends: denies Urge incontinence: denies Stress incontinence: leaks a little when coughing Incontinence without Sensory Awareness: denies Abdominal pain: denies Flank pain: denies Sexual complaints: _ History of Present Illness Tests reviewed: reviewed UA, CT, CEASAR, KUB I have reviewed the previous health record information and history for this patient from Dr. Reid & TEODORO. I have reviewed and verified the staff HPI to be accurate for this encounter. There have been no associated fever, chills, flank pain, or blood in the urine. Denies any urinary infections since last encounter. Review of Systems PHQ Score Initial Depression Screen Score: 0 SCORE Initial Depression Screen Score: 0 SCORE ROS [...] See HPI. Physical Exam Vitals & Measurements HR: 68(Peripheral) RR: 16 BP: 118/76 HT: 69 in HT: 175 cm WT: 95 kg WT: 209 lb BMI: 31.02 General Appearance: alert , no acute distress, well nourished, well developed female. Assessment/Plan 68 year old female with hx of stones here for follow up to R ureteral stones 1. Ureteral stone with hydronephrosis (N13.2: Hydronephrosis with renal and ureteral calculous obstruction) CT AP wo contrast TBH 03/17/24- Two right distal ureteral stones 7x8mm and 6x4 mm, mod hydro. Reviewed imaging with pt. She states she passed a stone about 2 weeks ago. Had R flank pain but no complaints of pain today. Discussed surgical intervention due to persistent R hydro, likely due to 2nd stone. Discussed management options including medical expulsive therapy x 4-6 week (pt has failed) vs intervention including extracorporeal shockwave lithotripsy vs ureteroscopy with laser lithotripsy/stone basket extraction possible stent. Risks/benefits of each were discussed including but not limited to: MET- renal damage, pain or infection; ESWL- bleeding, hematoma, pain, infection, inability to break up the stone, ureteral obstruction, cardiac arrhythmias, damage to surrounding structures and need for additional procedures; ureteroscopy - bleeding, pain, infection, damage to surrounding structures, ureteral perforation, stricture, inability to treat the stone and need for additional procedures. If a stent is placed, pt understands this is not permanent and needs to be removed or exchanged within 3 months to prevent encrustation, infection, permanent renal damage and need for more invasive procedures. -Will schedule cysto, Right RPG, ureteroscopy with Laser Lithotripsy, stent placement. The procedural risks, benefits, details, and treatment alternatives have been discussed with the patient. These include bleeding, infection, inability to break or retrieve all of the stone, injury to the ureter (the tube which connects the kidney to the bladder), injury to the kidney scarring of the ureter, and need for repeat procedures, among others. Full informed consent has been obtained. Will order General anesthesia. 2. Kidney stone (N20.0: Calculus of kidney) CT AP 07/31/21 - Mild right hydroureter with periureteral stranding near the distal ureter without evidence of obstructing stone. 3 mm LUP stone KUB 07/08/22 - LUP stone US kidneys 07/08/22 - Nonobstructing LUP stone. 07/31/21: Met w/u: WNL. BUN 19.0, CREA 0.79, Uric acid 4.1, PTH 24. /: 24hr urine Litholink: high calcium levels, advised patient to avoid taking calcium supplements and try to get these from food. 12/25/21: 24hr Litholink: Calcium improved from 448 to 232, Citrate improved 440 to 770, Sodium worsened from 222 to 237. Pt's Volume was [address] AP wo con 11/12/22 TBH - BL punctate stones (3 on right, 1 on left all < 1mm) . No hydro. KUB 06/08/23 TBH - neg, limited by bowels. CEASAR 06/08/23 TBH - nonobstructing BL renal stones, measuring up to 0.7cm in LLP. No hydro. Personal review: R measuring up to 7mm, L measuring 3-4mm. KUB 03/15/24 TBH - No visible stones. CEASAR 03/15/24 TBH - 7mm R nonobstructing nephrolith. Moderate R hydro. 6mm L nonobstructing nephr (more content not included)... Normal [facility] Comment on above: Result Comment: Elec tronically Signed By: Lexi Reid MD\.br\Date and Time Signed: 04/13/24 12:21 EDT\.br\Electronically Co-Signed By: Andrew Marin\.br\Date and Time Co-Signed: 04/13/24 11:45 EDT\.br\Electronically Co-Signed By: Andrew Marin\.br\Date and Time Co-Signed: 04/13/24 11:46 EDT Ambulatory Visit Summaryon 0 03-17-2024 Ambulatory Visit Summary Ambulatory Visit Summary RUPERTO SARAVIA :1955 Visit Date:03/17/2024 Ambulatory Visit Instructions Your [...] FLOYD, Lexi Regalado Where: [facility] [address] [place] [address] [place] [address]- You Need to Schedule the Following Appointments Follow Up with ANN SHANKAR PA-C, URL When: Where: [address] [address] [phone] Medications What How Much When Instructions Unchanged [...] for choosing us for your care. Normal [facility] Urology Office/Clinic Noteon 03-17-2024 Urology Office/Clinic [...] urine cx done with her PCP in [place]. Urine cx 03/09/24: negative PVR: 0 ml [...] 6mm L nonobstructing nephrolith. No L hydro. [place] she was passing a stone 2wks ago. [...] URL, URO [address] [place] [address]- [phone] Additional Instructions: keep 04/06/24 appt Patient Education Kidney Stones, [id number]-Icbd Documentation recorded by the scribe Alejandra Garcia accurately reflects the services(s) I performed and decisions made by me. Authenticated by Ann Shankar PA-C on 03/17/2024 14:49:21. I, Alejandra Garcia, personally scribed for Ann Shankar PA-C on 03/17/2024 13:1 (more content not included)... [facility] Comment on above: Result Comment: Elec tronically Signed By: ANN SHANKAR PA-C\.br\Date and Time Signed: 03/17/24 14:49 EDT\.br\Electronically Co-Signed By: Alejandra Garcia\.br\Date and Time Co-Signed: 03/17/24 13:16 EDT Reminderson 12-30-2023 Reminders - From: Alejandra Garcia To: KERMIT Reid; Sent: 06/24/2023 08:37:16 EST Show up: 11/23/2023 09:37:00 EDT Subject: KUB and CEASAR prior to appt Reminder Message Please Remember to:_have pt get KUB and CEASAR prior to appt. Pt has gone to [facility] in the past. KUB/CEASAR order faxed to [facility]. Called pt and left VM to return our call. Pt moved appointment back to 03/30/24 [facility] Creatinine (Bld) [Mass/Vol]O rdered By: Shasta Wade on 11-03-2023 Creatinine [Mass/Vol] 0.6 mg/dL 0.6-1.3 [facility] Comment on above: ER/ESD physician is notified/shown all ISTAT results.Critical values may be confirmed by laboratory testing ifdeemed necessary by ER attending doctor. ISTAT XRay CREon 11-03-2023 Creatinine [Mass/Vol] 0.6 mg/dL Normal 0.6-1.3 [facility] Comment on above: Result Comment: ER/E SD physician is notified/shown all ISTAT results. Critical values may be confirmed by laboratory testing if deemed necessary by ER attending doctor. Performed By: #### I SCRE #### [address] ISTAT GFR > 60.0 Normal [facility] Comment on above: Result Comment: PERF ORMED BY: [place] [address] PATHOLOGIST LABORER [employer] TIFFANIE ROSS M.D. Performed By: #### I SCRE #### [address] MR head/brain wo/w conon MR head/brain wo/w con [facility] Main [place] [address] [place] [address] MRI Report Signed Patient: Ruperto Saravia MR#: [id number] : 1955 Acct:[id number] Age/Sex: 68 / F ADM Date: 11/03/23 Loc: Room: Type: [facility] Attending Dr: Shasta Wade PA-C Copies to: [...] Sanjiv Reis M.D.11/03/2023 3:10 PM Dictation Location: [place] [address] Transcribed By: COLETTE 11/03/23 1510 Dictated By: Sanjiv Reis II, MD 11/03/23 1410 Signed By: 11/03/23 1510 Normal [facility] No Panel InformationOrdered By: Shasta Wade on 11-03-2023 Bedside Estimated GFR (eGFR) > 60.[address] [facility] CNCOon 10-14-2023 CNCO Letter Text Normal [facility] CNOVon 10-09-2023 CNOV Office Visit (OTOLMN ) RUPERTO SARAVIA ([id number]) 1955 F Date Time Provider Department 10/09/23 10:00 AM ADINA ROSALES During your visit today, we recorded the following information about you: Adina Rosales MD 10/18/2023 4:43 PM Signed [facility] [place] Facial [facility]astic [facility] Reconstructive Surgery Name: Ruperto [...] orbicularis oculi, zygomaticus major, levator labii and facilities mechanical design engineer - Severe lateral pull of upper lip [...] units 1 site) = 2 U Left facilities mechanical design engineer (3u, 2 site) = 6 U Left procerus (3u, 1 site) = 3 U Left mentalis (2u, 3 sites) 6 U Left platysma (3u, 18 x sites) = 54 units Right TAMRA (3U 1 site)=3U Right facilities mechanical design engineer (2U, 2 sites) = 4U Right lateral orbicularis infrabrow= 2U, 1 site=2U Right platysma (3U f4sigtl) = 9 U Total: 120 units used [...] MD Facial Plastic and Reconstructive Surgery Fellow [facility], [facility] [place] Bogdan Mirza, RN 10/09/2023 10:38 AM Signed [...] disordr [M26.639] 04/24/2010 Myalgia and myositis, unspecified [[id number]] 05/07/2011 Unspecified disorder of muscle, ligament, and [...] a r (more content not included)... Normal [facility] Patient Educationon 06-24-20 Patient Education Nephrology Dietary [...] Spinach (cooked), rhubarb, beets, sweet potatoes, and [place] Zealander chard. ? Peanuts. ? Potato chips, south african fries, and baked potatoes with skin on. ? Nuts and nut products. ? Chocolate. ? If you regularly take a diuretic medicine, make sure to eat at least 1 or 2 servings of fruits or vegetables that are high in potassium each day. These include: ? Avocado. ? Banana. ? [place], prune, carrot, or tomato juice. ? Baked [...] fish oil, or vitamin B6. ? Take rszc-rod-nuxoowg and prescription medicines only as told by your health care provider. These include supplements. What foods sh (more content not included)... Normal [facility] Urology Office/Clinic Noteon 06-24-2023 Urology Office/Clinic [...] Information Franklin FLOYD, Lexi Regalado, URL, URO [address], [facility] [place] [address] [phone] Additional Instructions: 6 mos w/ KUB and [...] Simple renal (more content not included)... Normal [facility] Comment on above: Result Comment: Elec tronically Signed By: Lexi Reid MD\.br\Date and Time Signed: 06/24/23 08:45 EST\.br\Electronically Co-Signed By: Alejandra Garcia\.br\Date and Time Co-Signed: 06/24/23 08:35 EST RAD - MISCon 06-09-2023 RAD - MISC [id number]. 00TIFF [facility] RAD - Ultrasound Reporton RAD - Ultrasound Report [id number]. 00TIFF [facility] CNOVon 04-10-2023 CNOV Office Visit (OTOLMN ) RUPERTO SARAVIA ([id number]) 1955 F Date Time Provider Department 04/10/23 9:30 AM ADINA ROSALES During your visit today, we recorded the following information about you: Adina Rosales MD 04/10/2023 11:35 AM Signed [facility] [place] Facial Plastic and Reconstructive Surgery Name: Ruperto [...] orbicularis oculi, zygomaticus major, levator labii and facilities mechanical design engineer - Severe lateral pull of upper lip [...] (2u, 4 sites) = 8 U Left facilities mechanical design engineer (3u, 2 site) = 6 U Left [...] MD Facial Plastic and Reconstructive Surgery Fellow [facility], [facility] [place] [place] Macy Leyva RN 04/10/2023 9:45 AM Signed [...] disordr [M26.639] 04/24/2010 Myalgia and myositis, unspecified [[id number]] 05/07/2011 Unspecified disorder of muscle, ligament, and [...] SOLUTION* 04/10/ (more content not included)... Normal [facility] CT ABD/PELVIS WO CONon 11-12 CT ABD/PELVIS [...] by: ARMANDO HOLLINGSWORTH Date: 2022-11-12 11:22 Normal [facility] US KIDNEYSon 07-08-2022 US KIDNEYS US KIDNEYS EXAM DATE: 07/08/2022 5:54 AM MST COMPARISON: Same day radiograph, CT abdomen and pelvis without contrast 07/31/2021 INDICATION: History of kidney stones. TECHNIQUE: Real-time ultrasound scanning of the kidneys and bladder was performed by the direct entry midwife. Ballet Professor static images are submitted for review. FINDINGS: [...] by: JARAD BENAVIDES Date: 2022-07-08 16:58 Normal [facility] XR KUB 1 VIEWon 07-08-2022 XR [...] by: JARAD BENAVIDES Date: 2022-07-08 17:05 Normal [facility] XR DEXA BONE DENSITYon 06-05 XR [...] by: ARMANDO HOLLINGSWORTH Date: 2022-06-05 12:[address] [facility] [address] FOOT RT WO CONon 02-28-20 [...] by: ARMANDO HOLLINGSWORTH Date: 2022-02-27 18:17 Normal [facility] T4 FREE/FREE THYROXon 2021 Free T4 [Mass/Vol] 1.0 ng/dL 0.9 - 1.7 ng/dL [facility] TSH BLDon 11-12-2021 TSH Qn 2.420 m[IU]/L 0.270 - 4.200 mIU/L [facility] Vital Signs Date Time Vital Sign Value Performing Clinician Faci lity 04-13-2024 10:56-0400 Diastolic blood pressure 76 mm[Hg] Lexi Lue [facility] 04-13-2024 10:56-0400 Heart rate 68 /min Lexi Lue [facility] 04-13-2024 10:56-0400 Respiratory rate 16 /min Lexi Lue [facility] 04-13-2024 10:56-0400 Systolic blood pressure 118 mm[Hg] Lexi Lue [facility] 04-12-2024 12:47-0400 Blood Pressure Location Lexi Lue [facility] 04-12-2024 12:47-0400 Diastolic blood pressure 76 mm[Hg] Lexi Lue [facility] 04-12-2024 12:47-0400 Heart rate 68 /min Lexi Lue [facility] 04-12-2024 12:47-0400 Respiratory rate 16 /min Lexi Lue [facility] 04-12-2024 12:47-0400 Systolic blood pressure 118 mm[Hg] Lexi Lue [facility] 03-17-2024 13:16-0400 Diastolic blood pressure 82 mm[Hg] ANN RAAD [facility] 03-17-2024 13:16-0400 Mean blood pressure 108 mm[Hg] ANN RAAD [facility] 03-17-2024 13:16-0400 Systolic blood pressure 160 mm[Hg] ANN RAAD [facility] 03-17-2024 12:51-0400 Blood Pressure Location ANN RAAD [facility] 03-17-2024 12:51-0400 Diastolic blood pressure 82 mm[Hg] ANN RAAD [facility] 03-17-2024 12:51-0400 Heart rate 80 /min ANN RAAD [facility] 03-17-2024 12:51-0400 Respiratory rate 16 /min ANN RAAD [facility] 03-17-2024 12:51-0400 Systolic blood pressure 160 mm[Hg] ANN RAAD [facility] 11-03-2023 11:21-0400 Body height 175.26 cm JR eGrson Gonzalez Work Phone: [facility] 11-03-2023 11:21-0400 Body weight 97.52 kg JR Gerson Gonzalez Work Phone: [facility] 11-26-2022 07:56-0400 Blood Pressure Location Lexi Lue [facility] 11-26-2022 07:56-0400 Diastolic blood pressure 67 mm[Hg] Lexi Lue [facility] 11-26-2022 07:56-0400 Heart rate 62 /min Lexi Lue [facility] 11-26-2022 07:56-0400 Systolic blood pressure 113 mm[Hg] Lexi Lue [facility] 01-15-2022 10:13-0400 Blood Pressure Location Lexi Lue [facility] 01-15-2022 10:13-0400 Diastolic blood pressure 73 mm[Hg] Lexi Lue [facility] 01-15-2022 10:13-0400 Heart rate 70 /min Lexi Lue [facility] 01-15-2022 10:13-0400 Respiratory rate 16 /min Lexi Lue [facility] 01-15-2022 10:13-0400 Systolic blood pressure 122 mm[Hg] Lexi Lue [facility] 11-12-2021 10:56-0400 Body height 175.3 cm Shawna Card MD, PhD Work Phone: [facility] 11-12-2021 10:56-0400 Body weight 98.88 kg Shawna Card MD, PhD Work Phone: [facility] 11-12-2021 10:56-0400 Diastolic blood pressure 74 mm[Hg] Shawna Card MD, PhD Work Phone: [facility] 11-12-2021 10:56-0400 Heart rate 64 /min Shawna Card MD, PhD Work Phone: [facility] 11-12-2021 10:56-0400 Systolic blood pressure 128 mm[Hg] Shawna Card MD, PhD Work Phone: [facility] Encounters Encounter Date Encounter Type Care Provider Facility Start: 05-11-2024 ambulatory Lexi M. Lue Facility:[facility] Start: 04-13-2024 End: 04-13-2024 ambulatory Lexi M. Lue Facility:[facility] Start: 04-13-2024 End: 04-13-2024 Patient encounter procedure Lexi M. Lue [facility] Jorge Start: 04-08-2024 End: 04-08-2024 ambulatory Lexi M. Lue Facility:[facility] Start: 04-08-2024 End: 04-08-2024 Patient encounter procedure Lexi M. Lue [facility] Start: 04-06-2024 ambulatory Lexi M. Lue Facility:[facility] Start: 03-30-2024 End: 03-30-2024 ambulatory ELIZABETH HILLIARD Facility:[facility] Start: 03-17-2024 End: 03-17-2024 ambulatory ANN SHANKAR Facility:[facility] Start: 03-17-2024 End: 03-17-2024 Patient encounter procedure ANN SHANKAR [facility] Start: 02-25-2024 End: 02-25-2024 ambulatory SHASTA WADE [...] Start: 11-03-2023 End: 11-03-2023 ambulatory Gerson Gonzalez Facility:[facility] Start: 11-03-2023 End: 11-03-2023 ambulatory JR Gerson Owens Starr Work Phone: [facility] Work Phone: Start: 11-03-2023 End: 11-03-2023 Patient encounter procedure JR Nieto Starr Work Phone: [facility] [place] Work Phone: Start: 10-09-2023 End: 10-09-2023 ambulatory ADINA ROSALES Facility:[facility] Start: 08-24-2023 End: 08-24-2023 ambulatory JR Nieto Roman Gonzalez Work Phone: [facility] Work Phone: Start: 08-24-2023 End: 08-24-2023 Patient encounter procedure JR Nieto Starr Work Phone: [facility] [place] Work Phone: Start: 08-06-2023 End: 08-06-2023 ambulatory MICHAEL A FELTER Not Available Start: 06-24-2023 End: 06-24-2023 ambulatory Lexi Reid Facility:[facility] Start: 06-24-2023 End: 06-24-2023 Patient encounter procedure Lexi Reid [facility] Start: 04-10-2023 End: 04-10-2023 ambulatory ELIZABETH HILLIARD Facility:[facility] Start: 04-10-2023 End: 04-10-2023 Patient encounter procedure Adina Rosales MD Work Phone: Otolaryngology Comment on above: Facial paralysis (Pr imary Dx) Start: 11-26-2022 End: 11-26-2022 Patient encounter procedure Lexi Reid [facility] Start: 11-12-2022 End: 11-13-[address] ARMANDO HOLLINGSWORTH Facility:[facility] Start: 09-10-2022 ambulatory Elizabeth Hilliard MD Work Phone: [facility] Start: 09-10-2022 Patient encounter procedure Elizabeth Hilliard MD Work Phone: Facial Plastics/Reconstruction Comment on above: Botox Appointment Start: 07-23-2022 End: 07-23-2022 Patient encounter procedure Lexi Reid [facility] Start: 07-08-2022 End: 07-09-2022 ambulatory LEXI REID . Facility:[facility] Start: 06-05-2022 End: 06-06-[address] GERSON GONZALEZ Facility:[facility] Start: 05-16-2022 End: 05-16-2022 Patient encounter procedure Elizabeth Hilliard MD Work Phone: [facility]Re[facility] Comment on above: Facial nerve motor d isorder (Primary Dx) Start: 02-27-2022 End: 02-28-2022 ambulatory VINCENT BURCIAGA Facility:[facility] Start: 02-19-[address] GERSON GONZALEZ Facil ity:[facility] Start: 01-15-2022 End: 01-15-2022 Patient encounter procedure Lexi Reid [facility] Start: 12-25-2021 End: 12-26-2021 ambulatory ALHAJI Reis [facility] Facility:[facility] Start: 12-13-2021 End: 12-13-2021 Patient encounter [...] Patient encounter procedure Gerson Gonzalez Work Phone: -[facility] Procedures Date Procedure Procedure Detail Performing Clinician Start: 11-03-2023 MRI of head JR Gerson Gonzalez Work Phone: Start: 11-23-2020 Screening mammograph y of bilateral breasts Gerson Gonzalez Work Phone: Start: 10-19-2003 Procedure on brain Nasreen aileen Reid Ankle region structu re (body structure) Lexi Reid Procedure on eye Lexi Reid Plan of Treatment Date Care Activity Detail Author Start: 03-20-2023 Influenza vaccination Influenza Vacc ine (#1) [facility] Start: 07-20-2022 ADVANCE DIRECTIVE DISCUSSION ADVANCE DIRECTIVE DISCUSSION [facility] Start: 07-20-2022 DEPRESSION ASSESSMENT DEPRESSION ASS ESSMENT [facility] Start: 03-20-2022 Influenza vaccination C [facility] Start: 10-31-2021 COVID-19 VACCINE (4 - Booster for Pfizer series) COVID-19 VACCINE (4 - Booster for Pfizer series) [facility] Start: 2021 ADVANCE DIRECTIVE DISCUSSION ADVANCE DIRECTIVE DISCUSSION [facility] Start: 2021 BONE DENSITY BONE DENSITY [facility] Start: 2021 Bone Density Screening Bone Density Screening [facility] Start: 2021 Pneumococcal Vaccine : 65+ (1 - PCV) Pneumococcal Vaccine: 65+ (1 - PCV) [facility] Start: 2021 PNEUMOCOCCAL: 65+ (1 - PCV) PNEUMOCOCCAL: 65+ (1 - PCV) [facility] Start: 2021 PNEUMOVAX AGE 65 AND OVER WITH 5YR LOOKBACK (#1) PNEUMOVAX AGE 65 AND OVER WITH 5YR LOOKBACK (#1) [facility] Start: 08-27-2021 COVID-19 VACCINE (4 - Booster for Pfizer series) COVID-19 VACCINE (4 - Booster for Pfizer series) [facility] Start: 08-27-2021 Covid-19 Vaccine (4 - Pfizer series) Covid-19 Vaccine (4 - Pfizer series) [facility] Start: 07-20-2021 DEPRESSION ASSESSMENT DEPRESSION ASS ESSMENT [facility] Start: 12-24-2012 DIABETES SCREEN DIABETES SCREEN [facility] Start: 12-24-2012 Diabetes Screening Diabetes Screenin g [facility] Start: 2006 SHINGRIX VACCINE (1 of 2) SHINGRIX V ACCINE (1 of 2) [facility] Start: 2001 COLOGUARD (FIT-DNA) COLOGUARD (FIT-D NA) [facility] Start: 2001 Colonoscopy COLONOSCOPY [facility] Start: 2001 COLORECTAL CANCER SCREENING COLORECTAL CANCER SCREENING [facility] Start: [address] COLONOGRAPHY [facility] Start: 2001 FECAL OCCULT BLOOD FECAL OCCULT BLOO D [facility] Start: 2001 Lipid 1996 panel - S john or Plasma Lipid Screening [facility] Start: 2001 LIPID SCREEN LIPID SCREEN [facility] Start: 2001 SIGMOIDOSCOPY [facility]OSCOPY [facility] Start: 1996 Mammography [facility] Start: 09-24-1975 Urine microalbumin profile [facility] Start: 1974 HEPATITIS C SCREENING HEPATITIS C SC REENING [facility] Start: 1974 HIV SCREENING HIV SCREENING [facility] Start: 1968 Adult depression scr eening assessment DEPRESSION SCREENING [facility] Immunizations Immunization Date Immunization Notes Care Provider Fa cili 07-02-2021 SARS-CoV-2 (COVID-19 ) mRNA BNT-162b2 vax Lexi Lue [facility] 01-08-2021 SARS-CoV-2 (COVID-19 ) mRNA BNT-162b2 vax Lexi Lue [facility] 10-08-2020 SARS-CoV-2 (COVID-19 ) mRNA BNT-162b2 vax Lexi Lue [facility] 07-20-2020 SARS-CoV-2 (COVID-19 ) mRNA BNT-162b2 vax Lexi Lue [facility] Payers Date Payer Category Payer Self-pay [id number] 2023 Unknown [id number] 2017 Private Health Insurance [facility] UMR CHOICE PLUS [id number] 2017-Present [phone] [address] [address] [place] [address] [facility] [id number] 2017 Private Health Insurance [facility] UMR CHOICE PLUS [id number] 2017-Present [phone] [address] [address] [place] [address] HMO [id number] 2012 Unknown DENTAL DENTAL GE NERIC [id number] 2012-Present [phone] [address] [address] [place] [address] Dental [id number] 2005 Medicare MEDICARE MEDICAR E A AND B [id number] 2005-Present [phone] [place] [address] Medicare [id number] 2005 Medicare MEDICARE MEDICAR E A AND B [id number] 2005-Present [phone] [place] [address] Medicare [id number] 1959 Medicare [id number] 1959 Private Health Insurance [id number] 1956 Unknown [id number] .[id number]. 593 1956 Unknown [id number] .16.840.1.161429.3.579.2. 593 1956 Unknown [id number] 2.16.840.1.643918.3.579.2. 593 1956 Unknown [id number] .16.840.1.871034.3.579.2. 593 1956 Unknown [id number] .16.840.1.714499.3.579.2. 593 1956 Unknown [id number] 2.16.840.1.535120.3.579.2. 593 1956 Unknown [id number] 2.16.840.1.021199.3.579.2. 1259 1956 Unknown [id number] 2.16.840.1.807535.3.579.2. 1259 1956 Unknown [id number] 2.16.840.1.602215.3.579.2. 125 1956 Unknown [id number] 2.16.840.1.223728.3.579.2. 1258 1956 Unknown [id number] 2.16.840.1.668636.3.579.2. 1258 1956 Unknown [id number] 2.16.840.1.309629.3.579.2. 125 1956 Unknown [id number] 2.16.840.1.935307.3.579.2. 125 1956 Unknown [id number] 2.16.840.1.655387.3.579.2. 125 1956 Unknown [id number] 2.16.840.1.278186.3.579.2. 727 1956 Unknown [id number] 2.16.840.1.151597.3.579.2. 727 1956 Unknown [id number] 2.16.840.1.444100.3.579.2. 72 1956 Unknown [id number] 2.16.840.1.364129.3.579.2. 72 1956 Unknown [id number] 2.16.840.1.902320.3.579.2. 72 Medicare Self Pay [id number] Unknown [id number] Unknown [id number] 2.16.840.1.958563.3.579.2. 531 Social History Date Type Detail Facility Tobacco smoking stat [facility] Unknown if ever smoked [facility] Start: 1955 Sex Assigned At Female F [facility] Start: 09-18-2021 End: 04-13-2024 Tobacco smoking status NHIS Ex-smoker [facility] End: 07-20-1999 History of tobacco use Current smoker [facility] End: 07-20-1999 History of tobacco use Cigarette Smoker [facility] Start: 11-12-2021 End: 04-10-2023 Alcohol intake Current non-drinker of alcohol (finding) [facility] Start: 1955 Sex Assigned At Not on file C [facility] Start: 11-02-2021 End: 05-16-2022 Exposure to SARS-CoV-2 (event) Not sure [facility] Start: 04-10-2023 Sex Assigned At [facility] Start: 05-16-2022 End: 04-10-2023 Cigarettes smoked current (pack per day) - Reported 1.5 [facility] Start: 05-16-2022 Tobacco use and exposure Smokeless tobacco non-user [facility] National Score (1-10 0), lower number is lower risk 87 [facility] Start: 12-12-2021 Gender identity Identifies as female gender (finding) [facility] Medical Equipment Procedure Code Equipment Code Equipment Origin al Text Equipment Identifier Dates [facility] Janes 1.0g - [id number] Start: 12-24-2009 Goals Date Patient Goal Desired Activity /State Functional Status Date Assessment Result Facility 04-13-2024 Functional Status N/A [facility] 04-12-2024 Functional Status [facility] 03-17-2024 Functional Status N/A [facility] 06-24-2023 Functional Status N/A [facility] 11-26-2022 Functional Status N/A [facility] 07-23-2022 Functional Status N/A [facility] 01-15-2022 Functional Status N/A [facility] Clinical Notes 11-12-2021 to 04-13-2024 Macy Jay RN - 04/10/2023 9:45 AM Adina Carter MD - 04/10/2023 9:30 AM Bernadette Lowery RN - 05/16/2022 1:36 PM Yamilex Hilliard MD - 05/16/2022 1:30 PM EDTRadiology Note Date & Type Note Facility 04-13-2024 Hospital Discharg e instructions Patient Education 04/13/2024 11:44:08 Kidney Stones Kidney Stones Kidney stones are solid, rock-like deposits that form inside of the kidneys. The kidneys are a pair of organs that make urine. A kidney stone may form in a kidney and move into other parts of the urinary tract, including the tubes that connect the kidneys to the bladder (ureters), the bladder, and the tube that carries urine out of the body (urethra). As the stone moves through these areas, it can cause intense pain and block the flow of urine. Kidney stones are created when high levels of certain minerals are found in the urine. The stones are usually passed out of the body through urination, but in some cases, medical treatment may be needed to remove them. What are the causes? Kidney stones may be caused by: A condition in which certain glands produce too much parathyroid hormone (primary hyperparathyroidism), which causes too much calcium buildup in the blood. A buildup of uric acid crystals in the bladder (hyperuricosuria). Uric acid is a chemical that the body produces when you eat certain foods. It usually leaves the body in the urine. Narrowing (stricture) of one or both of the ureters. A kidney blockage that is present at (congenital obstruction). Past surgery on the kidney or the ureters. What increases the risk? The following factors may make you more likely to develop this condition: Having had a kidney stone in the past. Having a family history of kidney stones. Not drinking enough water. Eating a diet that is high in protein, salt (sodium), or sugar. Being overweight or obese. What are the signs or symptoms? Symptoms of a kidney stone may include: Pain in the side of the abdomen, right below the ribs (flank pain). Pain usually spreads (radiates) to the groin. Needing to urinate often or urgently. Painful urination. Blood in the urine (hematuria). Nausea. Vomiting. Fever and chills. How is this diagnosed? This condition may be diagnosed based on: Your symptoms and medical history. A physical exam. Blood tests. Urine tests. These may be done before and after the stone passes out of your body through urination. Imaging tests, such as a CT scan, abdominal X-ray, or ultrasound. A procedure to examine the inside of the bladder (cystoscopy). How is this treated? Treatment for kidney stones depends on the size, location, and makeup of the stones. Kidney stones will often pass out of the body through urination. You may need to: Increase your fluid intake to help pass the stone. In some cases, you may be given fluids through an IV and may need to be monitored in the hospital. Take medicine for pain. Make changes in your diet to help prevent kidney stones from coming back. Sometimes, procedures are needed to remove a kidney stone. This may involve: A procedure to break up kidney stones using: ?A focused beam of light (laser therapy). ?Shock waves (extracorporeal shock wave lithotripsy). Surgery to remove kidney stones. This may be needed if you have severe pain or have stones that block your urinary tract. Follow these instructions at home: Medicines Take muqa-mcw-otfhpqj and prescription medicines only as told by your health care provider. Ask your health care provider if the medicine prescribed to you requires you to avoid driving or using heavy machinery. Eating and drinking Drink enough fluid to keep your urine pale yellow. You may be instructed to drink at least 8 10 glasses of water each day. This will help you pass the kidney stone. If directed, change your diet. This may include: ?Limiting how much sodium you eat. ?Eating more fruits and vegetables. ?Limiting how much animal protein you eat. Animal proteins include red meat, poultry, fish, and eggs. ?Eating a normal amount of calcium (1,000 1,300 mg per day). Follow instructions from your health care provider about eating or drinking restrictions. General instructions Collect urine samples as told by your health care provider. You may need to collect a urine sample: ?24 hours after you pass the stone. ?8 12 weeks after you pass the kidney stone, and every 6 12 months after that. Strain your urine every time you urinate, for as long as directed. Use the strainer that your health care provider recommends. Do not throw out the kidney stone after passing it. Keep the stone so it can be tested by your health care provider. Testing the makeup of your kidney stone may help prevent you from getting kidney stones in the future. Keep all follow-up visits. You may need follow-up X-rays or ultrasounds to make sure that your stone has passed. How is this prevented? To prevent another kidney stone: Drink enough fluid to keep your urine pale yellow. This is the best way to prevent kidney stones. Eat a healthy diet. Follow recommendations from your health care provider about foods to avoid. Recommendations vary depending on the type of kidney stone that you have. You may be instructed to eat a low-protein diet. Maintain a healthy weight. Where to find more information National Kidney Foundation (NKF): www.kidney.org Urology Care Foundation (UCF): www.urologyhealth.org Contact a health care provider if: You have pain that gets worse or does not get better with medicine. Get help right away if: You have a fever or chills. You develop severe pain. You develop new abdominal pain. You faint. You are unable to urinate. Summary Kidney stones are solid, rock-like deposits that form inside of the kidneys. Kidney stones can cause nausea, vomiting, blood in the urine, abdominal pain, and the urge to urinate often. Treatment for kidney stones depends on the size, location, and makeup of the stones. Kidney stones will often pass out of the body through urination. Kidney stones can be prevented by drinking enough fluids, eating a healthy diet, and maintaining a healthy weight. This information is not intended to replace advice given to you by your health care provider. Make sure you discuss any questions you have with your health care provider. Document Revised: 10/15/2022 Document Reviewed: 10/15/2022 [employer] Patient Education 2023 [employer]. Follow Up Care 04/05/2024 10:57:54 With:Franklin FLOYD, Lexi M., URL, URO Address: When: Unknown Comments:Matilde menjivar [facility] Note Patient Education Urology Kidney Stones Kidney stones are solid, rock-like deposits that form inside of the kidneys. The kidneys are a pair of organs that make urine. A kidney stone may form in a kidney and move into other parts of the urinary tract, including the tubes that connect the kidneys to the bladder (ureters), the bladder, and the tube that carries urine out of the body (urethra). As the stone moves through these areas, it can cause intense pain and block the flow of urine. Kidney stones are created when high levels of certain minerals are found in the urine. The stones are usually passed out of the body through urination, but in some cases, medical treatment may be needed to remove them. What are the causes? Kidney stones may be caused by: ? A condition in which certain glands produce too much parathyroid hormone (primary hyperparathyroidism), which causes too much calcium buildup in the blood. ? A buildup of uric acid crystals in the bladder (hyperuricosuria). Uric acid is a chemical that the body produces when you eat certain foods. It usually leaves the body in the urine. ? Narrowing (stricture) of one or both of the ureters. ? A kidney blockage that is present at (congenital obstruction). ? Past surgery on the kidney or the ureters. What increases the risk? The following factors may make you more likely to develop this condition: ? Having had a kidney stone in the past. ? Having a family history of kidney stones. ? Not drinking enough water. ? Eating a diet that is high in protein, salt (sodium), or sugar. ? Being overweight or obese. What are the signs or symptoms? Symptoms of a kidney stone may include: ? Pain in the side of the abdomen, right below the ribs (flank pain). Pain usually spreads (radiates) to the groin. ? Needing to urinate often or urgently. ? Painful urination. ? Blood in the urine (hematuria). ? Nausea. ? Vomiting. ? Fever and chills. How is this diagnosed? This condition may be diagnosed based on: ? Your symptoms and medical history. ? A physical exam. ? Blood tests. ? Urine tests. These may be done before and after the stone passes out of your body through urination. ? Imaging tests, such as a CT scan, abdominal X-ray, or ultrasound. ? A procedure to examine the inside of the bladder (cystoscopy). How is this treated? Treatment for kidney stones depends on the size, location, and makeup of the stones. Kidney stones will often pass out of the body through urination. You may need to: ? Increase your fluid intake to help pass the stone. In some cases, you may be given fluids through an IV and may need to be monitored in the hospital. ? Take medicine for pain. ? Make changes in your diet to help prevent kidney stones from coming back. Sometimes, procedures are needed to remove a kidney stone. This may involve: ? A procedure to break up kidney stones using: ? A focused beam of light (laser therapy). ? Shock waves (extracorporeal shock wave lithotripsy). ? Surgery to remove kidney stones. This may be needed if you have severe pain or have stones that block your urinary tract. Follow these instructions at home: Medicines ? Take ymmz-agl-xcgngin and prescription medicines only as told by your health care provider. ? Ask your health care provider if the medicine prescribed to you requires you to avoid driving or using heavy machinery. Eating and drinking ? Drink enough fluid to keep your urine pale yellow. You may be instructed to drink at least 8?10 glasses of water each day. This will help you pass the kidney stone. ? If directed, change your diet. This may include: ? Limiting how much sodium you eat. ? Eating more fruits and vegetables. ? Limiting how much animal protein you eat. Animal proteins include red meat, poultry, fish, and eggs. ? Eating a normal amount of calcium (1,000?1,300 mg per day). ? Follow instructions from your health care provider about eating or drinking restrictions. General instructions ? Collect urine samples as told by your health care provider. You may need to collect a urine sample: ? 24 hours after you pass the stone. ? 8?12 weeks after you pass the kidney stone, and every 6?12 months after that. ? Strain your urine every time you urinate, for as long as directed. Use the strainer that your health care provider recommends. ? Do not throw out the kidney stone after passing it. Keep the stone so it can be tested by your health care provider. Testing the makeup of your kidney stone may help prevent you from getting kidney stones in the future. ? Keep all follow-up visits. You may need follow-up X-rays or ultrasounds to make sure that your stone has passed. How is this prevented? To prevent another kidney stone: ? Drink enough fluid to keep your urine pale yellow. This is the best way to prevent kidney stones. ? Eat a healthy diet. Follow r (more content not included)... [facility] 04-04-2024 Evaluation + Plan note Future Scheduled TestsXR Abdomen 1 View 04/04/24US Renal 04/04/24 [facility] 03-17-2024 Hospital Discharg e instructions Patient Education 03/17/2024 13:15:00 Kidney Stones, Xdwl-jj-Wdkk Kidney Stones Kidney stones are rock-like masses [...] Follow these instructions at home: Medicines Take yjzb-bmh-tbnzfno and prescription medicines only as told by [...] provider. Document Revised: 03/10/2022 Document Reviewed: 03/10/2022 [employer] Patient Education 2022 [employer]. Follow Up Care 03/17/2024 09:52:31 With:Franklin FLOYD, BUDDY Garcia, URO Address: [address] [place] [phone] When: Unknown [facility] 03-17-2024 Note Patient Education Urology Kidney Stones [...] these instructions at home: Medicines ? Take hzyv-flg-rnjjflu and prescription medicines only as told by [...] provider. Document Revised: 03/10/2022 Document Reviewed: 03/10/2022 [employer] Patient Education ? 2022 [employer] [facility] 10-09-2023 Note HNO ID: [id number] Author: ADINA ROSALES MD Service: ? Author Type: Physician Type: Progress Notes Filed: 10/18/2023 16:43 Note Text: [facility] [place] [facility]ive [facility] Name: Ruperto [...] orbicularis oculi, zygomaticus major, levator labii and facilities mechanical design engineer - Severe lateral pull of upper lip [...] units 1 site) = 2 U Left facilities mechanical design engineer (3u, 2 site) = 6 U Left procerus (3u, 1 site) = 3 U Left mentalis (2u, 3 sites) 6 U Left platysma (3u, 18 x sites) = 54 units Right TAMRA (3U 1 site)=3U Right facilities mechanical design engineer (2U, 2 sites) = 4U Right lateral orbicularis infrabrow= 2U, 1 site=2U Right platysma (3U f6pscii) = 9 U Total: 120 units used [...] MD Facial Plastic and Reconstructive Surgery Fellow [facility] [place] [facility] 06-24-2023 Hospital Discharg e instructions Patient Education [...] include: ?8 oz (237 mL) of milk, tebvnsx-lpyuqbewvbxw-rzeul milk, and calcium-fortifiedfruit juice. Calcium-fortified means that [...] ?Spinach (cooked), rhubarb, beets, sweet potatoes, and [place] Zealander chard. ?Peanuts. ?Potato chips, south african fries, and baked potatoes with skin on. ?Nuts and nut products. ?Chocolate. If you regularly take a diuretic medicine, make sure to eat at least 1 or 2 servings of fruits or vegetables that are high in potassium each day. These include: ?Avocado. ?Banana. ?[place], prune, carrot, or tomato juice. ?Baked potato. [...] magnesium, fish oil, or vitamin B6. Take twzj-hyd-ochmfvo and prescription medicines only as told by [...] Casseroles. Pizza. Lasagna. Frozen meals. Potato chips. Palauan fries. The items listed above may not [...] provider. Document Revised: 10/16/2022 Document Reviewed: 10/16/2022 [employer] Patient Education 2022 [employer]. Follow Up Care 11/26/2022 08:11:41 With:Franklin FLOYD, Lexi Regalado, CORNELIUSL, URO Address: [address], [place] [phone] When: Unknown Comments:6 mos w/ MARCOB and CEASAR [facility] 04-10-2023 Nurse Note Tobacco Use: 1.5 packs/day, for 18 years. Quit 07/20/1999. Types: Cigarettes Was smoking cessation packet given? N/A - Patient is a non-smoker or quit >1 year ago. Was a referral initiated?N/A Patient is a non-smoker documented in this encounter [facility] 04-10-2023 History of Presen t illness Narrative [facility] [place] [facility] Name: Ruperto [...] orbicularis oculi, zygomaticus major, levator labii and facilities mechanical design engineer - Severe lateral pull of upper lip [...] (2u, 4 sites) = 8 U Left facilities mechanical design engineer (3u, 2 site) = 6 U Left [...] MD Facial Plastic and Reconstructive Surgery Fellow [facility] [place] documented in this encounter [facility] 04-10-2023 Note HNO ID: [id number] Author: Adina Rosales MD Service: ? Author Type: Physician Type: Progress Notes Filed: 04/10/2023 11:35 AM Note Text: [facility] Facial Plastic and Reconstructive Surgery Name: Ruperto [...] orbicularis oculi, zygomaticus major, levator labii and facilities mechanical design engineer - Severe lateral pull of upper lip [...] (2u, 4 sites) = 8 U Left facilities mechanical design engineer (3u, 2 site) = 6 U Left [...] MD Facial Plastic and Reconstructive Surgery Fellow [facility] [place] [facility] 11-26-2022 Hospital Discharg e instructions Patient Education [...] include: ?8 oz (237 mL) of milk, tnpwssh-geeilqyphbwh-yebqf milk, and calcium-fortifiedfruit juice. Calcium-fortified means that [...] ?Spinach (cooked), rhubarb, beets, sweet potatoes, and [place] Zealander chard. ?Peanuts. ?Potato chips, south african fries, and baked potatoes with skin on. ?Nuts and nut products. ?Chocolate. If you regularly take a diuretic medicine, make sure to eat at least 1 or 2 servings of fruits or vegetables that are high in potassium each day. These include: ?Avocado. ?Banana. ?[place], prune, carrot, or tomato juice. ?Baked potato. [...] magnesium, fish oil, or vitamin B6. Take wexc-mev-mbthzpu and prescription medicines only as told by [...] Casseroles. Pizza. Lasagna. Frozen meals. Potato chips. Palauan fries. The items listed above may not [...] provider. Document Revised: 03/17/2022 Document Reviewed: 03/17/2022 [employer] Patient Education 2022 [employer]. Follow Up Care 07/23/2022 11:38:48 With:Franklin FLOYD, BUDDY Garcia, URO Address: When: Unknown [facility] 07-23-2022 Hospital Discharg e instructions Patient Education 07/23/2022 11:37:41 Kidney Stones, Dagy-zk-Tobg Kidney Stones Kidney stones are rock-like masses [...] Follow these instructions at home: Medicines Take esve-sky-khqqhui and prescription medicines only as told by [...] 12/22/2008 Document Revised: 11/22/2019 Document Reviewed: 11/22/2019 [employer] Patient Education 2019 [employer] Follow Up Care 01/15/2022 10:50:51 With:Franklin FLOYD, BUDDY Garcia, URO Address: [address] [place] [phone] When:Within 3 Month(s) Comments:matilde RUBIO w/o [facility] 05-16-2022 History of Presen t illness Narrative Botox 50U with 0.5ml NaCl Lot [id number] Exp 11/2024 [facility] [place] [facility] Name: Ruperto Saravia Date of Service: 05/16/2022 Patient ID: [...] orbicularis oculi, zygomaticus major, levator labii and facilities mechanical design engineer -Severe lateral pull of upper lip to [...] (2u, 4 site) = 8 u Left facilities mechanical design engineer (3u, 2 site) = 6 U Left [...] for repeat botox injections Elizabeth Hilliard MD [facility] Exercise Class Instructor, Facial Plastic and Microvascular Surgery By signing my name below, I, Adrian Sepulveda, attest that this documentation has been prepared under the direction and in the presence of Dr. Elizabeth Hilliard. Electronically signed, Lita Middleton May 16, 2022 2:59 PM I have reviewed and edited above documentation and it accurately reflects assessment, work and decisions made by me. Elizabeth Hilliard MD [facility] Exercise Class Instructor, Facial Plastic and Microvascular Surgery UNIVERSAL PROTOCOL [...] Elizabeth Hilliard MD documented in this encounter [facility] 05-16-2022 Nurse Note Tobacco Use: 1.5 packs/day, for 18 years. Quit 07/20/1999. Types: Cigarettes Was smoking cessation packet given? N/A - Patient is a non-smoker or quit >1 year ago. Was a referral initiated?N/A Patient is a non-smoker documented in this encounter [facility] 01-15-2022 Hospital Discharg e instructions Patient Education 01/15/2022 10:39:00 Kidney Stones, Jeqg-pb-Ygxu Kidney Stones Kidney stones are rock-like masses [...] Follow these instructions at home: Medicines Take sclw-ebm-jhjbkdt and prescription medicines only as told by [...] 12/22/2008 Document Revised: 11/22/2019 Document Reviewed: 11/22/2019 [employer] Patient Education 2020 [employer]. Follow Up Care 09/18/2021 11:24:57 With:Franklin FLOYD, Lexi Regalado, BUDDY, URO Address: [address] [place] [address]- [phone] When:07/17/2022 Comments:CONCETTA MCDONOUGH [facility] 12-25-2021 Note PROCEDURE: XR FOOT R T MIN 3 VIEWS COMPARISON: 02/06/2021 HISTORY: Pain in right foot FINDINGS: BONES:No acute fracture or dislocation. Moderate enthesopathic spurring of the calcaneus. Stable corticated calcific density lateral to the cuboid SOFT TISSUES:Negative. No visible soft tissue swelling. EFFUSION:None visible. OTHER: Negative. IMPRESSION: No acute fracture Electronically authenticated by: ARMANDO HOLLINGSWORTH Date: 2021-12-25 16:49 [facility] 12-13-2021 History of Presen t illness Narrative [facility] [place] Facial Plastic and Reconstructive Surgery Name: Ruperto [...] orbicularis oculi, zygomaticus major, levator labii and facilities mechanical design engineer severe lateral pull of upper lip to [...] (2u, 2 sites) = 4 U left facilities mechanical design engineer (3u, 2 site) = 6 U left [...] injections By signing my name below, I, Hasn Manjinder, attest that this documentation has been prepared under the direction and in the presence of Dr. Hilliard Electronically signed, Lita Sesay December 13, 2021 1:29 PM I have reviewed and edited above documentation and it accurately reflects assessment, work and decisions made by me. Elizabeth Hilliard MD [facility] Exercise Class Instructor, Facial Plastic and Microvascular Surgery Procedure: Botox Injections Informed Consent Consent Obtained: Written [place] Protocol A moment to CARE was completed [...] completed when applicable documented in this encounter [facility] 11-19-2021 Miscellaneous Notes Notified pt of message, expressed understanding. Attempted to call patient, voicemail box has not been set up yet. Please try again later. Thyroid level is within normal. No thyroid medication needed. Patient had labs drawn after recent visit, please advise results. Component Latest Ref Rng & Units 03/02/2021 06/29/202111/12/2021 TSH 0.270 - 4.200 mIU/L 2.21 1.47 2.420 Free T4 0.9 - 1.7 ng/dL 1.0 documented in this encounter [facility] 11-12-2021 History of Presen t illness [...] Ab (IU/mL) Date Value 08/03/2018 4.3 HPI: Ruperto Saravia is a 66 year old female [...] Card MD, PhD documented in this encounter [facility] Evaluation + Plan note Future Appointments Appointment Date:07/23/2022 10:00:00 AM Scheduled Provider:Lexi Reid MD Location:[facility] Appointment Type:URO Office Visit [facility] Evaluation + Plan note Future Appointments Appointment Date:10/29/2022 10:15:00 AM Scheduled Provider:Lexi Reid MD Location:[facility] Appointment Type:URO Office Visit [facility] Evaluation + Plan note Future Appointments Appointment Date:06/24/2023 08:00:00 AM Scheduled Provider:Lexi Reid MD Location:[facility] Appointment Type:URO Office Visit [facility] Evaluation + Plan note Future Appointments Appointment Date:01/06/2024 09:00:00 AM Scheduled Provider:Lexi Reid MD Location:[facility] Appointment Type:URO Office Visit [facility] Evaluation + Plan note Future Appointments Appointment Date:04/06/2024 11:00:00 AM Scheduled Provider:Lexi Reid MD Location:[facility] Appointment Type:URO Office Visit [facility] Evaluation + Plan note Future Appointments Appointment Date:04/12/2024 12:40:00 PM Scheduled Provider:ANN SHANKAR PA-C Location:[facility] Appointment Type:URO Office Visit Future Scheduled TestsXR Abdomen 1 View 04/04/24US Renal 04/04/24 [facility] Evaluation note No Assessments Infor mation Available [facility] Evaluation note Diagnosis Multiple thyroid nodules- Primary Nontoxic multinodular goiter Obesity, Class I, BMI 30-34.9 Obesity, unspecified Vasomotor symptoms due to menopause [facility] 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 Facial nerve disorder, unspecified [facility] Diagnosis Facial nerve motor disorder- Primary Facial nerve disorder, unspecified [facility] Diagnosis 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 Phone: Hospital course Narrative No data available for this section [facility] Hospital Discharge instructions No data available for this section [facility] Progress note No data available for this section [facility] Advance Directives No Advanced Directives Records Found Advance Directive Response Recorded Date/ Time Advance Directives No May 2:55pm Documents on File Type Date Recorded 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 Advance Directive(s) 06/24/2019 7:51 AM Advance Directive(s) 06/01/2018 7:17 AM Advance Directive(s) 05/27/2018 1:38 PM Advance Directive(s) 12/12/2009 8:53 PM Documents on File Type Date Recorded 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 Advance Directive(s) 06/24/2019 7:51 AM Advance Directive(s) 06/01/2018 7:17 AM Advance Directive(s) 05/27/2018 1:38 PM Advance Directive(s) 12/12/2009 8:53 PM Documents on File Type Date Recorded 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 Advance Directive(s) 12/12/2009 8:53 PM Advance Directive Response Recorded Date/ Time Advance Directives No May 1:55pm Chief Complaint and Reason for Visit Chief Complaint Screening Chief Complaint Q27.30 R44.1 Reason for Referral Specialty Diagnoses / Procedures Referred By Alisson lin Referred To Contact Diagnoses Vasomotor symptoms due to menopause Procedures CONSULT TO WOMEN'S HEALTH OFFICE/OUTPATIENT [facility] 60-74 MINUTES Shawna Card MD, PhD [address] [place] [address] Vicki Kiser MD [address] [place] [address] Referral ID Status Reason Start Date Expiration Date Visits Requested Visits Authorized [id number] Authorized PCP Requested Referral Auto-Generate d Referral [...] for this section No Family History Records Found No data available for this section No data available for this section No Family History Records Found Additional Source Comments Source Comments (unrecognize d section and content) In the event this informatio n is protected by the Federal Confidentiality of Alcohol and Drug Abuse Patient Records regulations: The Federal rules restrict any use of the information to criminally investigate or prosecute any alcohol or drug abuse patient.[facility] event this information is protected by the Federal Confidentiality of Alcohol and Drug Abuse Patient Records regulations: The Federal rules restrict any use of the information to criminally investigate or prosecute any alcohol or drug abuse patient.[facility] the event this information is protected by the Federal Confidentiality of Alcohol and Drug Abuse Patient Records regulations: The Federal rules restrict any use of the information to criminally investigate or prosecute any alcohol or drug abuse patient.[facility] the event this information is protected by the Federal Confidentiality of Alcohol and Drug Abuse Patient Records regulations: The Federal rules restrict any use of the information to criminally investigate or prosecute any alcohol or drug abuse patient.[facility] the event this information is protected by the Federal Confidentiality of Alcohol and Drug Abuse Patient Records regulations: The Federal rules restrict any use of the information to criminally investigate or prosecute any alcohol or drug abuse patient.[facility] the event this information is protected by the Federal Confidentiality of Alcohol and Drug Abuse Patient Records regulations: The Federal rules restrict any use of the information to criminally investigate or prosecute any alcohol or drug abuse patient.[facility] Reason for Visit (unrecogniz ed section and content) Reason Comments Facial nerve spasm Facial nerve spasm, Botox Specialty Diagnoses / Procedures Referred By Contact Referred To Contact Ent - Otolaryngology / ENT-FACIAL PLASTICS Diagnoses 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, unspecified Alcala's palsy Repeat medical botox injections Procedures BOTULINUM TOXIN A PER 1 UNIT CHEMODNRVTJ [facility] INNERVATED FACIAL NRV UNIL RENEWAL REQUEST INJECTABLE (100 UNITS EVERY 3-4 MONTHS FOR 1 YR) [place] [address] [place] [address] Elizabeth Hilliard MD [address] [place] [address] Referral ID Status Reason Start Date Expiration Date V isits Requested Visits Authorized [id number] Authorized 12/13/2021 10/24/2022 99 99 Reason Comments Thyroid Problem Reason Comments Results Reason Comments Botox Injection Referral ID Status Reason Start Date Expiration Date V isits Requested Visits Authorized [id number] Pending Review 12/13/2021 12/12/2022 4 4 Reason Comments Follow Up Botox Specialty Diagnoses / Procedures Referred By Contac t Referred To Contact ENT-OTOLARYNGOLOGY 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 Renewal medical botox Procedures [facility] INNERV[facility] FACIAL NRV UNIL BOTULINUM TOXIN A PER 1 UNIT Med botox 100 units every 3-4 months for 1 year Elizabeth Hilliard MD [address] [place] [address] Elizabeth Hilliard MD [address] [place] [address] Referral ID Status Reason Start Date Expiration Date V isits Requested Visits Authorized [id number] Authorized 04/01/2023 03/31/2024 99 99 Care Teams (unrecognized sec tion and content) City Bailiff Relationship Specialty Start Date End Date Gerson Gonzalez Jr. [address] [place] [phone] PCP - General 08/24/01 City Bailiff Relationship Specialty Start Date End Date Gerson Gonzalez Jr. [address] [facility] [address] [place] [address] PCP - General 08/24/01 City Bailiff Relationship Specialty Start Date End Date Gerson Gonzalez Jr. [address] [facility] [address] [place] [address] PCP - General 08/24/01 City Bailiff Relationship Specialty Start Date End Date Gerson Gonzalez Jr. [address] [facility] [address] [place] [address] PCP - General 08/24/01 City Bailiff Relationship Specialty Start Date End Date Gerson Gonzalez Jr. [address] [facility] [address] [place] [address] PCP - General 08/24/01 City Bailiff Relationship Specialty Start Date End Date Gerson Gonzalez Jr. [address] [facility] [address] [place] [address] PCP - General 08/24/01 Team Status: Active [...] CREATED AUTHOR AUTHOR'S ORGANIZ ATION 11/07/2023 [facility] DATE CREATED AUTHOR AUTHOR'S ORGANIZ ATION 02/28/2024 [facility] DATE CREATED AUTHOR AUTHOR'S ORGANIZ ATION 04/01/2024 [facility] DATE CREATED AUTHOR AUTHOR'S ORGANIZ ATION 04/14/2024 [place] [facility] Goals (unrecognized section and content) Goals may [...] BE BASED ON THE PRIMARY CLINICAL RECORDS. [facility] [employer] provides no warranty or guarantee of the accuracy or completeness of information in this document.
== END 2024-04-21 11:38 | disposition home or self-care (01) ==
LOC: EC 11:37
PROVIDERS: PCP Internal Medicine; Visit Provider Physician Assistant
DX: M79.672 Pain in left foot (principal)
CPT/HCPCS: 73630

== ENCOUNTER 2024-04-27 09:59 | Outpatient (OUT) | payer MEDICARE, OTHER, SELFPAY ==
--- NOTE | 2024-04-27 10:05 | ECG_ITS ---
[facility] Test Date: 2024-04-27 Pat Name: RUPERTO SARAVIA Department: Room: - Gender: Female C Architect: : [id number] Requested By: ASYA CLEMENTS Order Number: [id number] Reading MD: PRASHANTH ONEAL Measurements Intervals [place] Rate: 59 P: 61 SD: 150 QRS: 18 QRSD: 93 T: -26 QT: 404 QTc: 401 Interpretive Statements SINUS BRADYCARDIA ST/T wave changes, can't exclude inferior ischemia. Changes not present on prior tracing of 11/16/20, Electronically Signed On 04-27-2024 22:47:07 EDT by PRASHANTH ONEAL
--- OUTSIDE RECORDS SUMMARY | 2024-04-27 10:14 | XMS_ITS | CCD ---
Author Organization [facility] Care Team Providers Care Side Hemmer Name Role Phone Gerson Gonzalez Primary Care Provider [phone] Self, Referral Attending Provider Unavailable Starr Carson, [...] Unavailable LEXI DIETZ Admitting Unavailable VALONE, DR NIETO Primary Care Unavailable LEXI DIETZ Attending Unavailable LEXI DIETZ Consulting Unavailable JARAD BENAVIDES Consulting Unavailable JR Gerson Gonzalez Primary Care Provider CARLOS Wade Attending Provider [phone] JR Gerson Gonzalez Primary Care Provider CARLOS [...] ALLERGIES] Propensity to adverse reactions 0 Itching [facility] (1 source) Unable to Assess Drug allergy (disorder) 4 [facility] Repository Medications Current Medications Medication Drug Class(es) [...] Daily, # 30 cap(s), Refills(s) 0, Pharmacy: [facility]/pharmacy #[id number], 175, cm, 03/17/24 12:54:00 EDT, Height/Length [...] beam o (more content not included)... Normal [facility] Urology Office/Clinic Noteon 09-25-2024 Urology Office/Clinic Note Urology Office/Clinic Note Chief Complaint 9 month follow up with CONCETTA, CEASAR HPI Staff 68 yr old KML patient here for 9 month f/u w/ KUB and CEASAR. KUB and CEASAR done 04/07/24 at [facility]. Per pt one stone passed about 2 [...] nephr (more content not included)... Normal [facility] Comment on above: Result Comment: Elec [...] FLOYD, Lexi Regalado Where: [facility] [address] [place] [address] [place] [address]- You Need to Schedule the Following Appointments Follow Up with ANN SHANKAR PA-C, URL When: Where: [address] [place] [address] [phone] Medications What How Much When Instructions Unchanged [...] for choosing us for your care. Normal [facility] Urology Office/Clinic Noteon 03-17-2024 Urology Office/Clinic Note [...] urine cx done with her PCP in [place]. Urine cx 03/09/24: negative PVR: 0 ml [...] 6mm L nonobstructing nephrolith. No L hydro. Scotrun she was passing a stone 2wks ago. [...] URL, URO [address], [place] [address]- [phone] Additional Instructions: keep 04/06/24 appt Patient Education Kidney Stones, Atmi-dp-Rdvo Documentation recorded by the scribe Alejandra Garcia accurately reflects the services(s) I performed and decisions made by me. Authenticated by Ann Shankar PA-C on 03/17/2024 14:49:21. I, Alejandra Garcia, personally scribed for Ann Shankar PA-C on 03/17/2024 13:1 (more content not included)... [facility] Comment on above: Result Comment: Elec [...] prior to appt. Pt has gone to [facility] in the past. KUB/CEASAR order faxed to [facility]. Called pt and left VM to return our call. Pt moved appointment back to 03/30/24 [facility] Creatinine (Bld) [Mass/Vol]O rdered By: Shasta Wade on 11-03-2023 Creatinine [Mass/Vol] 0.6 mg/dL 0.6-1.3 [facility] Comment on above: ER/ESD physician is notified/shown all ISTAT results.Critical values may be confirmed by laboratory testing ifdeemed necessary by ER attending doctor. ISTAT XRay CREon 11-03-2023 Creatinine [Mass/Vol] 0.6 mg/dL Normal 0.6-1.3 [facility] Comment on above: Result Comment: ER/E SD physician is notified/shown all ISTAT results. Critical values may be confirmed by laboratory testing if deemed necessary by ER attending doctor. Performed By: #### I SCRE #### [address] ISTAT GFR > 60.0 Normal [facility] Comment on above: Result Comment: PERF ORMED BY: [place] [address] PATHOLOGIST MEETING PLANNER TIFFANIE ROSS M.D. Performed By: #### I SCRE #### [address] MR head/brain wo/w conon MR head/brain wo/w con [facility] [address] [place] [address] MRI Report Signed Patient: Ruperto Saravia MR#: [id number] : 1955 Acct:[id number] Age/Sex: 68 / F ADM Date: 11/03/23 Loc: Room: Type: [facility] Attending Dr: Shasta Wade PA-C Copies to: [...] Sanjiv Reis M.D.11/03/2023 3:10 PM Dictation Location: [place] [address] Transcribed By: COLETTE 11/03/23 1510 Dictated By: Sanjiv Reis II, MD 11/03/23 1410 Signed By: 11/03/23 1510 Normal [facility] No Panel InformationOrdered By: Shasta Wade on 11-03-2023 Bedside Estimated GFR (eGFR) > 60.0 [facility] CNCOon 10-14-2023 CNCO Letter Text Normal [facility] CNOVon 10-09-2023 CNOV Office Visit (OTOLMN ) RUPERTO SARAVIA ([id number]) 1955 F Date Time Provider Department 10/09/23 10:00 AM ADINA ROSALES During your visit today, we recorded the following information about you: Adina Rosales MD 10/18/2023 4:43 PM Signed [facility]ial Plastic and Reconstructive Surgery Name: Ruperto [...] orbicularis oculi, zygomaticus major, levator labii and system manager - Severe lateral pull of upper lip [...] units 1 site) = 2 U Left system manager (3u, 2 site) = 6 U Left procerus (3u, 1 site) = 3 U Left mentalis (2u, 3 sites) 6 U Left platysma (3u, 18 x sites) = 54 units Right TAMRA (3U 1 site)=3U Right system manager (2U, 2 sites) = 4U Right lateral orbicularis infrabrow= 2U, 1 site=2U Right platysma (3U [id number]) = 9 U Total: 120 units used [...] MD Facial Plastic and Reconstructive Surgery Fellow [facility], [facility] Bogdan Mirza, RN 10/09/2023 10:38 AM Signed [...] disordr [M26.639] 04/24/2010 Myalgia and myositis, unspecified [[id number]] 05/07/2011 Unspecified disorder of muscle, ligament, and [...] a r (more content not included)... Normal [facility] Patient Educationon 06-24-20 Patient Education Nephrology [...] Spinach (cooked), rhubarb, beets, sweet potatoes, and Kosovan chard. ? Peanuts. ? Potato chips, citizen of [place] fries, and baked potatoes with skin on. ? Nuts and nut products. ? Chocolate. ? If you regularly take a diuretic medicine, make sure to eat at least 1 or 2 servings of fruits or vegetables that are high in potassium each day. These include: ? Avocado. ? Banana. ? [place], prune, carrot, or tomato juice. ? Baked [...] fish oil, or vitamin B6. ? Take quoj-uyx-lnxexfu and prescription medicines only as told by your health care provider. These include supplements. What foods sh (more content not included)... Normal [facility] Urology Office/Clinic Noteon 06-24-2023 Urology Office/Clinic Note [...] Information Franklin FLOYD, Lexi Regalado, URL, [facility] [address], [facility] [place] [phone] Additional Instructions: 6 mos w/ KUB and [...] Simple renal (more content not included)... Normal [facility] Comment on above: Result Comment: Elec tronically Signed By: Lexi Reid MD\.br\Date and Time Signed: 06/24/23 08:45 EST\.br\Electronically Co-Signed By: Alejandra Garcia\.br\Date and Time Co-Signed: 06/24/23 08:35 EST RAD - MISCon 06-09-2023 RAD - MISC [id number]. 00TIFF [facility] RAD - Ultrasound Reporton RAD - Ultrasound Report [id number]. 00TIFF [facility] CNOVon 04-10-2023 CNOV Office Visit (OTOLMN ) RUPERTO SARAVIA ([id number]) 1955 F Date Time Provider Department 04/10/23 9:30 AM ADINA ROSALES During your visit today, we recorded the following information about you: Adina Rosales MD 04/10/2023 11:35 AM Signed [facility] Facial Plastic and Reconstructive Surgery Name: Ruperto [...] orbicularis oculi, zygomaticus major, levator labii and system manager - Severe lateral pull of upper lip [...] (2u, 4 sites) = 8 U Left system manager (3u, 2 site) = 6 U Left [...] MD Facial Plastic and Reconstructive Surgery Fellow [facility], Head and Neck [facility] Macy Leyva RN 04/10/2023 9:45 AM Signed [...] - Itching Date Reviewed: 04/10/2023 Reviewed by: aMcy Leyva RN - Fully Assessed Reason for [...] disordr [M26.639] 04/24/2010 Myalgia and myositis, unspecified [[id number]] 05/07/2011 Unspecified disorder of muscle, ligament, and [...] SOLUTION* 04/10/ (more content not included)... Normal [facility] CT ABD/PELVIS WO CONon 11-12 CT [...] by: ARMANDO HOLLINGSWORTH Date: 2022-11-12 11:22 Normal [facility] US KIDNEYSon 07-08-2022 US KIDNEYS US KIDNEYS EXAM DATE: 07/08/2022 5:54 AM MST COMPARISON: Same day radiograph, CT abdomen and pelvis without contrast 07/31/2021 INDICATION: History of kidney stones. TECHNIQUE: Real-time ultrasound scanning of the kidneys and bladder was performed by the unhairing inspector. Riding Instructor static images are submitted for review. FINDINGS: [...] by: JARAD BENAVIDES Date: 2022-07-08 16:58 Normal [facility] XR KUB 1 VIEWon 07-08-2022 [...] by: JARAD BENAVIDES Date: 2022-07-08 17:05 Normal [facility] XR DEXA BONE DENSITYon 06-05 [...] by: ARMANDO HOLLINGSWORTH Date: 2022-06-05 12:[address] [facility] [address] FOOT RT WO CONon [...] by: ARMANDO HOLLINGSWORTH Date: 2022-02-27 18:17 Normal [facility] T4 FREE/FREE THYROXon 2021 Free T4 [Mass/Vol] 1.0 ng/dL 0.9 - 1.7 ng/dL [facility] TSH BLDon 11-12-2021 TSH Qn 2.420 m[IU]/L 0.270 - 4.200 mIU/L [facility] Vital Signs Date Time Vital Sign Value Performing Clinician Faci lity 04-13-2024 10:56-0400 Diastolic blood pressure 76 mm[Hg] Lexi Lue [facility] 04-13-2024 10:56-0400 Heart rate 68 /min Lexi Lue [facility] 04-13-2024 10:56-0400 Respiratory rate 16 /min Lexi Lue [facility] 04-13-2024 10:56-0400 Systolic blood pressure 118 mm[Hg] Lexi Lue [facility] 04-12-2024 12:47-0400 Blood Pressure Location Lexi Lue [facility] 04-12-2024 12:47-0400 Diastolic blood pressure 76 mm[Hg] Lexi Lue [facility] 04-12-2024 12:47-0400 Heart rate 68 /min Lexi Lue [facility] 04-12-2024 12:47-0400 Respiratory rate 16 /min Lexi Lue [facility] 04-12-2024 12:47-0400 Systolic blood pressure 118 mm[Hg] Lexi Lue [facility] 03-17-2024 13:16-0400 Diastolic blood pressure 82 mm[Hg] ANN RAAD [facility] 03-17-2024 13:16-0400 Mean blood pressure 108 mm[Hg] ANN RAAD [facility] 03-17-2024 13:16-0400 Systolic blood pressure 160 mm[Hg] ANN RAAD [facility] 03-17-2024 12:51-0400 Blood Pressure Location ANN RAAD [facility] 03-17-2024 12:51-0400 Diastolic blood pressure 82 mm[Hg] ANN RAAD [facility] 03-17-2024 12:51-0400 Heart rate 80 /min ANN RAAD [facility] 03-17-2024 12:51-0400 Respiratory rate 16 /min ANN RAAD [facility] 03-17-2024 12:51-0400 Systolic blood pressure 160 mm[Hg] ANN RAAD [facility] 11-03-2023 11:21-0400 Body height 175.26 cm JR Gerson Gonzalez Work Phone: [facility] 11-03-2023 11:21-0400 Body weight 97.52 kg JR Gerson Gonzalez Work Phone: [facility] 11-26-2022 07:56-0400 Blood Pressure Location Lexi Lue [facility] 11-26-2022 07:56-0400 Diastolic blood pressure 67 mm[Hg] Lexi Lue [facility] 11-26-2022 07:56-0400 Heart rate 62 /min Lexi Lue [facility] 11-26-2022 07:56-0400 Systolic blood pressure 113 mm[Hg] Lexi Lue [facility] 01-15-2022 10:13-0400 Blood Pressure Location Lexi Lue [facility] 01-15-2022 10:13-0400 Diastolic blood pressure 73 mm[Hg] Lexi Lue [facility] 01-15-2022 10:13-0400 Heart rate 70 /min Lexi Lue [facility] 01-15-2022 10:13-0400 Respiratory rate 16 /min Lexi Lue [facility] 01-15-2022 10:13-0400 Systolic blood pressure 122 mm[Hg] Lexi Lue [facility] 11-12-2021 10:56-0400 Body height 175.3 cm Shawna Card MD, PhD Work Phone: [facility] 11-12-2021 10:56-0400 Body weight 98.88 kg Shawna Card MD, PhD Work Phone: [facility] 11-12-2021 10:56-0400 Diastolic blood pressure 74 mm[Hg] Shawna Card MD, PhD Work Phone: [facility] 11-12-2021 10:56-0400 Heart rate 64 /min Shawna Card MD, PhD Work Phone: [facility] 11-12-2021 10:56-0400 Systolic blood pressure 128 mm[Hg] Shawna Card MD, PhD Work Phone: [facility] Encounters Encounter Date Encounter Type Care Provider Facility Start: 05-11-2024 ambulatory Lexi M. Lue Facility:[facility] Start: 04-13-2024 End: 04-13-2024 ambulatory Lexi M. Lue Facility:[facility] Start: 04-13-2024 End: 04-13-2024 Patient encounter procedure Lexi M. Lue [facility] Start: 04-08-2024 End: 04-08-2024 ambulatory Lexi M. Lue Facility:[facility] Start: 04-08-2024 End: 04-08-2024 Patient encounter procedure Lexi M. Lue [facility] Start: 04-06-2024 ambulatory Lexi M. Lue Facility:[facility] Start: 03-30-2024 End: 03-30-2024 ambulatory ELIZABETH HILLIARD Facility:[facility] Start: 03-17-2024 End: 03-17-2024 ambulatory ANN SHANKAR Facility:[facility] Start: 03-17-2024 End: 03-17-2024 Patient encounter procedure ANN SHANKAR [facility] Start: 02-25-2024 End: 02-25-2024 ambulatory SHASTA [...] Start: 11-03-2023 End: 11-03-2023 ambulatory Gerson Gonzalez Facility:[facility] Start: 11-03-2023 End: 11-03-2023 ambulatory JR Gerson Owens Starr Work Phone: [facility] Work Phone: Start: 11-03-2023 End: 11-03-2023 Patient encounter procedure JR Nieto Starr Work Phone: [facility] Work Phone: Start: 10-09-2023 End: 10-09-2023 ambulatory ADINA ROSALES Facility:[facility] Start: 08-24-2023 End: 08-24-2023 ambulatory JR Nieto Roman Gonzalez Work Phone: [facility] Work Phone: Start: 08-24-2023 End: 08-24-2023 Patient encounter procedure JR Nieto Starr Work Phone: [facility] Work Phone: Start: 08-06-2023 End: 08-06-2023 ambulatory MICHAEL A FELTER Not Available Start: 06-24-2023 End: 06-24-2023 ambulatory Lexi Reid Facility:[facility] Start: 06-24-2023 End: 06-24-2023 Patient encounter procedure Lexi Reid [facility] Start: 04-10-2023 End: 04-10-2023 ambulatory ELIZABETH HILLIARD Facility:[facility] Start: 04-10-2023 End: 04-10-2023 Patient encounter procedure Adina Rosales MD Work Phone: Otolaryngology Comment on above: Facial paralysis (Pr imary Dx) Start: 11-26-2022 End: 11-26-2022 Patient encounter procedure Lexi Reid [facility] Start: 11-12-2022 End: 11-13-[address] ARMANDO HOLLINGSWORTH Facility:[facility] Start: 09-10-2022 ambulatory Elizabeth Hilliard MD Work Phone: [facility] Start: 09-10-2022 Patient encounter procedure Elizabeth Hilliard MD Work Phone: Facial Plastics/Reconstruction Comment on above: Botox Appointment Start: 07-23-2022 End: 07-23-2022 Patient encounter procedure Lexi Reid [facility] Start: 07-08-2022 End: 07-09-2022 ambulatory LEXI [...] encounter procedure Lexi Reid [facility] Start: 12-25-2021 End: 12-26-2021 ambulatory ALHAJI Reis [facility] Facility:[facility] Start: 12-13-2021 End: 12-13-2021 Patient [...] Patient encounter procedure Gerson Gonzalez Work Phone: -[facility] Procedures Date Procedure Procedure Detail [...] 03-20-2023 Influenza vaccination Influenza Vacc ine (#1) [facility] Start: 07-20-2022 ADVANCE DIRECTIVE DISCUSSION ADVANCE DIRECTIVE DISCUSSION [facility] Start: 07-20-2022 DEPRESSION ASSESSMENT DEPRESSION ASS ESSMENT [facility] Start: 03-20-2022 Influenza vaccination C [facility] Start: 10-31-2021 COVID-19 VACCINE (4 - Booster for Pfizer series) COVID-19 VACCINE (4 - Booster for Pfizer series) [facility] Start: 2021 ADVANCE DIRECTIVE DISCUSSION ADVANCE DIRECTIVE DISCUSSION [facility] Start: 2021 BONE DENSITY BONE DENSITY [facility] Start: 2021 Bone Density Screening Bone Density Screening [facility] Start: 2021 Pneumococcal Vaccine : 65+ (1 - PCV) Pneumococcal Vaccine: 65+ (1 - PCV) [facility] Start: 2021 PNEUMOCOCCAL: 65+ (1 - PCV) PNEUMOCOCCAL: 65+ (1 - PCV) [facility] Start: 2021 PNEUMOVAX AGE 65 AND OVER WITH 5YR LOOKBACK (#1) PNEUMOVAX AGE 65 AND OVER WITH 5YR LOOKBACK (#1) [facility] Start: 08-27-2021 COVID-19 VACCINE (4 - Booster for Pfizer series) COVID-19 VACCINE (4 - Booster for Pfizer series) [facility] Start: 08-27-2021 Covid-19 Vaccine (4 - Pfizer series) Covid-19 Vaccine (4 - Pfizer series) [facility] Start: 07-20-2021 DEPRESSION ASSESSMENT DEPRESSION ASS ESSMENT [facility] Start: 12-24-2012 DIABETES SCREEN DIABETES SCREEN [facility] Start: 12-24-2012 Diabetes Screening Diabetes Screenin g [facility] Start: 2006 SHINGRIX VACCINE (1 of 2) SHINGRIX V ACCINE (1 of 2) [facility] Start: 2001 COLOGUARD (FIT-DNA) COLOGUARD (FIT-D NA) [facility] Start: 2001 Colonoscopy COLONOSCOPY [facility] Start: 2001 COLORECTAL CANCER SCREENING COLORECTAL CANCER SCREENING [facility] Start: [address] COLONOGRAPHY [facility] Start: 2001 FECAL OCCULT BLOOD FECAL OCCULT BLOO D [facility] Start: 2001 Lipid 1996 panel - S john or Plasma Lipid Screening [facility] Start: 2001 LIPID SCREEN LIPID SCREEN [facility] Start: 2001 [facility] Start: 1996 Mammography [facility] Start: 09-24-1975 Urine microalbumin profile [facility] Start: 1974 HEPATITIS C SCREENING HEPATITIS C SC REENING [facility] Start: 1974 HIV SCREENING HIV SCREENING [facility] Start: 1968 Adult depression scr eening assessment DEPRESSION SCREENING [facility] Immunizations Immunization Date Immunization Notes Care Provider Fa cili 07-02-2021 SARS-CoV-2 (COVID-19 ) mRNA BNT-162b2 vax Lexi Lue [facility] 01-08-2021 SARS-CoV-2 (COVID-19 ) mRNA BNT-162b2 vax Lexi Lue [facility] 10-08-2020 SARS-CoV-2 (COVID-19 ) mRNA BNT-162b2 vax Lexi Lue [facility] 07-20-2020 SARS-CoV-2 (COVID-19 ) mRNA BNT-162b2 vax Lexi Lue [facility] Payers Date Payer Category Payer Self-pay [id number] 2023 Unknown [id number] 2017 Private Health Insurance [facility] UMR CHOICE PLUS [id number] 2017-Present [phone] [address] [address] [place] [address] [facility] [id number] 2017 Private Health Insurance [facility] UMR CHOICE PLUS [id number] 2017-Present [phone] [address] [address] [place] [address] HMO [id number] 2012 Unknown DENTAL DENTAL GE NERIC [id number] 2012-Present [phone] [address] [address] [place] [address] Dental [id number] 2005 Medicare MEDICARE MEDICAR E A AND B [id number] 2005-Present [phone] [place] [address] Medicare [id number] 2005 Medicare MEDICARE MEDICAR E A AND B [id number] 2005-Present [phone] [place] [address] Medicare [id number] 1959 Medicare [id number] 1959 Private Health Insurance [id number] 1955 Unknown [id number] .840.1.151647.3.579.2. 593 1955 Unknown [id number] .16.840.1.021732.3.579.2. 593 1956 Unknown [id number] 2.16.840.1.868921.3.579.2. 593 1955 Unknown [id number] .16.840.1.316906.3.579.2. 593 1955 Unknown [id number] .16.840.1.937849.3.579.2. 593 1955 Unknown [id number] 2.16.840.1.894728.3.579.2. 593 1955 Unknown [id number] 2.16.840.1.796175.3.579.2. 1259 1956 Unknown [id number] 2.16.840.1.978651.3.579.2. 1259 1956 Unknown [id number] 2.16.840.1.351430.3.579.2. 125 1955 Unknown [id number] 2.16.840.1.416493.3.579.2. 1258 1955 Unknown [id number] 2.16.840.1.765943.3.579.2. 1258 1956 Unknown [id number] 2.16.840.1.552881.3.579.2. 125 1955 Unknown [id number] 2.16.840.1.739130.3.579.2. 125 1956 Unknown [id number] 2.16.840.1.349852.3.579.2. 125 1956 Unknown [id number] 2.16.840.1.268976.3.579.2. 727 1955 Unknown [id number] 2.16.840.1.839358.3.579.2. 727 1955 Unknown [id number] 2.16.840.1.495055.3.579.2. 72 1955 Unknown [id number] 2.16.840.1.430826.3.579.2. 72 1955 Unknown [id number] 2.16.840.1.588381.3.579.2. 72 Medicare Self Pay [id number] Unknown [id number] Unknown [id number] 2.16.840.1.547487.3.579.2. 531 Social History Date Type Detail Facility Tobacco smoking stat [facility] Unknown if ever smoked [facility] Start: 1955 Sex Assigned At Female F [facility] Start: 09-18-2021 End: 04-13-2024 Tobacco smoking status NHIS Ex-smoker [facility] End: 07-20-1999 History of tobacco use Current smoker [facility] End: 07-20-1999 History of tobacco use Cigarette Smoker [facility] Start: 11-12-2021 End: 04-10-2023 Alcohol intake Current non-drinker of alcohol (finding) [facility] Start: 1955 Sex Assigned At Not on file C [facility] Start: 11-02-2021 End: 05-16-2022 Exposure to SARS-CoV-2 (event) Not sure [facility] Start: 04-10-2023 Sex Assigned At Female [facility] Start: 05-16-2022 End: 04-10-2023 Cigarettes smoked current (pack per day) - Reported 1.5 [facility] Start: 05-16-2022 Tobacco use and exposure Smokeless tobacco non-user [facility] National Score (1-10 0), lower number is lower risk 87 [facility] Start: 12-12-2021 Gender identity Identifies as female gender (finding) [facility] Medical Equipment Procedure Code Equipment Code Equipment Origin al Text Equipment Identifier Dates [facility] Janes 1.0g - [id number] Start: 12-24-2009 Goals Date Patient Goal Desired Activity /State Functional Status Date Assessment Result Facility 04-13-2024 Functional Status N/A [facility] 04-12-2024 Functional Status [facility] 03-17-2024 Functional Status N/A [facility] 06-24-2023 Functional Status N/A [facility] of [facility] 11-26-2022 Functional Status N/A [facility] 07-23-2022 Functional Status N/A [facility] 01-15-2022 Functional Status N/A [facility] Clinical Notes 11-12-2021 to 04-13-2024 Macy [...] Follow these instructions at home: Medicines Take wooo-wmt-qqhwhuk and prescription medicines only as told by [...] provider. Document Revised: 10/15/2022 Document Reviewed: 10/15/2022 [employer] Patient Education 2023 [employer]. Follow Up Care 04/05/2024 10:57:54 With:Franklin FLOYD, Lexi M., URL, URO Address: When: Unknown Comments:Matilde menjivar [facility] Note Patient Education Urology Kidney Stones [...] these instructions at home: Medicines ? Take pqfw-phr-cgaltte and prescription medicines only as told by [...] diet. Follow r (more content not included)... [facility] 04-04-2024 Evaluation + Plan note Future Scheduled TestsXR Abdomen 1 View 04/04/24US Renal 04/04/24 [facility] 03-17-2024 Hospital Discharg e instructions Patient Education 03/17/2024 13:15:00 Kidney Stones, Mmqh-iv-Damf Kidney Stones Kidney stones are rock-like masses [...] Follow these instructions at home: Medicines Take qsms-eor-udnpjpu and prescription medicines only as told by [...] provider. Document Revised: 03/10/2022 Document Reviewed: 03/10/2022 [employer] Patient Education 2022 [employer]. Follow Up Care 03/17/2024 09:52:31 With:Franklin FLOYD, BUDDY Garcia, URO Address: [address] [place] [address] [phone] When: Unknown [facility] 03-17-2024 Note Patient Education Urology Kidney [...] these instructions at home: Medicines ? Take ioob-efc-ltrqksw and prescription medicines only as told by [...] provider. Document Revised: 03/10/2022 Document Reviewed: 03/10/2022 [employer] Patient Education ? 2022 [employer] [facility] 10-09-2023 Note HNO ID: [id number] Author: ADINA ROSALES MD Service: ? Author Type: Physician Type: Progress Notes Filed: 10/18/2023 16:43 Note Text: [facility]ive [facility] Name: Ruperto [...] orbicularis oculi, zygomaticus major, levator labii and system manager - Severe lateral pull of upper lip [...] units 1 site) = 2 U Left system manager (3u, 2 site) = 6 U Left procerus (3u, 1 site) = 3 U Left mentalis (2u, 3 sites) 6 U Left platysma (3u, 18 x sites) = 54 units Right TAMRA (3U 1 site)=3U Right system manager (2U, 2 sites) = 4U Right lateral orbicularis infrabrow= 2U, 1 site=2U Right platysma (3U s5uymnt) = 9 U Total: 120 units used [...] MD Facial Plastic and Reconstructive Surgery Fellow [facility], [facility] 06-24-2023 Hospital Discharg e instructions Patient [...] include: ?8 oz (237 mL) of milk, txsjuss-jaqfphqewefx-cxfow milk, and calcium-fortifiedfruit juice. Calcium-fortified means that [...] ?Spinach (cooked), rhubarb, beets, sweet potatoes, and Kosovan chard. ?Peanuts. ?Potato chips, citizen of [place] and [place] fries, and baked potatoes with skin on. ?Nuts and nut products. ?Chocolate. If you regularly take a diuretic medicine, make sure to eat at least 1 or 2 servings of fruits or vegetables that are high in potassium each day. These include: ?Avocado. ?Banana. ?[place], prune, carrot, or tomato juice. ?Baked potato. [...] magnesium, fish oil, or vitamin B6. Take csln-ffg-ddmkhda and prescription medicines only as told by [...] Casseroles. Pizza. Lasagna. Frozen meals. Potato chips. Tunisian fries. The items listed above may not [...] provider. Document Revised: 10/16/2022 Document Reviewed: 10/16/2022 [employer] Patient Education 2022 [employer]. Follow Up Care 11/26/2022 08:11:41 With:Franklin FLOYD, Lexi Regalado, CORNELIUSL, URO Address: [address], [place] [address] [phone] When: Unknown Comments:6 mos w/ MARCOB and CEASAR [facility] 04-10-2023 Nurse Note Tobacco Use: 1.5 packs/day, for 18 years. Quit 07/20/1999. Types: Cigarettes Was smoking cessation packet given? N/A - Patient is a non-smoker or quit >1 year ago. Was a referral initiated?N/A Patient is a non-smoker documented in this encounter [facility] 04-10-2023 History of Presen t illness Narrative [facility] Name: Ruperto [...] (full thickness) right lower lip by Dr. Hillirad on 04/14/2016. HPI: Here today in follow [...] orbicularis oculi, zygomaticus major, levator labii and system manager - Severe lateral pull of upper lip [...] (2u, 4 sites) = 8 U Left system manager (3u, 2 site) = 6 U Left [...] MD Facial Plastic and Reconstructive Surgery Fellow [facility], [facility] documented in this encounter [facility] 04-10-2023 Note HNO ID: [id number] Author: Adina Rosales MD Service: ? Author Type: Physician Type: Progress Notes Filed: 04/10/2023 11:35 AM Note Text: [facility] Facial Plastic and Reconstructive Surgery Name: Ruperto [...] orbicularis oculi, zygomaticus major, levator labii and system manager - Severe lateral pull of upper lip [...] (2u, 4 sites) = 8 U Left system manager (3u, 2 site) = 6 U Left [...] MD Facial Plastic and Reconstructive Surgery Fellow [facility], [facility] 11-26-2022 Hospital Discharg e instructions Patient [...] include: ?8 oz (237 mL) of milk, zcgefcp-zbzjwdmelzxq-dmxtz milk, and calcium-fortifiedfruit juice. Calcium-fortified means that [...] ?Spinach (cooked), rhubarb, beets, sweet potatoes, and Kosovan chard. ?Peanuts. ?Potato chips, citizen of [place] and [place] fries, and baked potatoes with skin on. ?Nuts and nut products. ?Chocolate. If you regularly take a diuretic medicine, make sure to eat at least 1 or 2 servings of fruits or vegetables that are high in potassium each day. These include: ?Avocado. ?Banana. ?[place], prune, carrot, or tomato juice. ?Baked potato. [...] magnesium, fish oil, or vitamin B6. Take aezm-zun-xunxvnx and prescription medicines only as told by [...] Casseroles. Pizza. Lasagna. Frozen meals. Potato chips. Tunisian fries. The items listed above may not [...] provider. Document Revised: 03/17/2022 Document Reviewed: 03/17/2022 [employer] Patient Education 2022 [employer]. Follow Up Care 07/23/2022 11:38:48 With:Franklin FLOYD, BUDDY Garcia, URO Address: When: Unknown [facility] 07-23-2022 Hospital Discharg e instructions Patient Education 07/23/2022 11:37:41 Kidney Stones, Edts-te-Uhyy Kidney Stones Kidney stones are rock-like masses [...] Follow these instructions at home: Medicines Take bfwm-wew-vrbrnfv and prescription medicines only as told by [...] 12/22/2008 Document Revised: 11/22/2019 Document Reviewed: 11/22/2019 [employer] Patient Education 2019 [employer] Follow Up Care 01/15/2022 10:50:51 With:Franklin FLOYD, BUDDY Garcia, URO Address: [address] [place] [phone] When:Within 3 Month(s) Comments:matilde RUBIO w/o [facility] 05-16-2022 History of Presen t illness Narrative Botox 50U with 0.5ml NaCl Lot [id number] Exp 11/2024 [facility] Name: Ruperto [...] orbicularis oculi, zygomaticus major, levator labii and system manager -Severe lateral pull of upper lip to [...] (2u, 4 site) = 8 u Left system manager (3u, 2 site) = 6 U Left [...] for repeat botox injections Elizabeth Hilliard MD [facility] Head and Neck Boat Joiner, Facial Plastic and Microvascular Surgery By signing my name below, I, Adrian Sepulveda, attest that this documentation has been prepared under the direction and in the presence of Dr. Elizabeth Hilliard. Electronically signed, Lita Middleton May 16, 2022 2:59 PM I have reviewed and edited above documentation and it accurately reflects assessment, work and decisions made by me. Elizabeth Hilliard MD [facility] and Neck Boat Joiner, Facial Plastic and Microvascular Surgery UNIVERSAL PROTOCOL [...] Elizabeth Hilliard MD documented in this encounter [facility] 05-16-2022 Nurse Note Tobacco Use: 1.5 packs/day, for 18 years. Quit 07/20/1999. Types: Cigarettes Was smoking cessation packet given? N/A - Patient is a non-smoker or quit >1 year ago. Was a referral initiated?N/A Patient is a non-smoker documented in this encounter [facility] 01-15-2022 Hospital Discharg e instructions Patient Education 01/15/2022 10:39:00 Kidney Stones, Patp-ld-Wdpc Kidney Stones Kidney stones are rock-like masses [...] Follow these instructions at home: Medicines Take yapw-kdq-bbnqnxn and prescription medicines only as told by [...] 12/22/2008 Document Revised: 11/22/2019 Document Reviewed: 11/22/2019 [employer] Patient Education 2020 [employer]. Follow Up Care 09/18/2021 11:24:57 With:Franklin FLOYD, Lexi Regalado, BUDDY, URO Address: [address] [place] [address]- [phone] When:07/17/2022 Comments:CONCETTA MCDONOUGH [facility] 12-25-2021 Note PROCEDURE: XR FOOT R T MIN 3 VIEWS COMPARISON: 02/06/2021 HISTORY: Pain in right foot FINDINGS: BONES:No acute fracture or dislocation. Moderate enthesopathic spurring of the calcaneus. Stable corticated calcific density lateral to the cuboid SOFT TISSUES:Negative. No visible soft tissue swelling. EFFUSION:None visible. OTHER: Negative. IMPRESSION: No acute fracture Electronically authenticated by: ARMANDO HOLLINGSWORTH Date: 2021-12-25 16:49 [facility] 12-13-2021 History of Presen t illness Narrative [facility]ial Plastic and Reconstructive Surgery Name: Ruperto [...] orbicularis oculi, zygomaticus major, levator labii and system manager severe lateral pull of upper lip to [...] (2u, 2 sites) = 4 U left system manager (3u, 2 site) = 6 U left [...] By signing my name below, I, Hans Manjinder, attest that this documentation has been prepared under the direction and in the presence of Dr. Hilliard Electronically signed, Lita Sesay December 13, 2021 1:29 PM I have reviewed and edited above documentation and it accurately reflects assessment, work and decisions made by me. Elizabeth Hilliard MD [facility] Head and Neck Boat Joiner, Facial Plastic and Microvascular Surgery Procedure: Botox Injections Informed Consent Consent Obtained: Written Urich Protocol A moment to CARE was completed [...] completed when applicable documented in this encounter [facility] 11-19-2021 Miscellaneous Notes Notified pt of message, [...] 1.7 ng/dL 1.0 documented in this encounter [facility] 11-12-2021 History of Presen t illness Narrative [...] Card MD, PhD documented in this encounter [facility] Evaluation + Plan note Future Appointments Appointment Date:07/23/2022 10:00:00 AM Scheduled Provider:Lexi Reid MD Location:[facility] Appointment Type:URO Office Visit [facility] Evaluation + Plan note Future Appointments Appointment Date:10/29/2022 10:15:00 AM Scheduled Provider:Lexi Reid MD Location:[facility] Appointment Type:URO Office Visit [facility] Evaluation + Plan note Future Appointments Appointment Date:06/24/2023 08:00:00 AM Scheduled Provider:Lexi Reid MD Location:[facility] Appointment Type:URO Office Visit [facility] Evaluation + Plan note Future Appointments Appointment Date:01/06/2024 09:00:00 AM Scheduled Provider:Lexi Reid MD Location:[facility] Appointment Type:URO Office Visit [facility] Evaluation + Plan note Future Appointments Appointment Date:04/06/2024 11:00:00 AM Scheduled Provider:Lexi Reid MD Location:[facility] Appointment Type:URO Office Visit [facility] Evaluation + Plan note Future Appointments Appointment Date:04/12/2024 12:40:00 PM Scheduled Provider:ANN SHANKAR PA-C Location:[facility] Appointment Type:URO Office Visit Future Scheduled TestsXR Abdomen 1 View 04/04/24US Renal 04/04/24 [facility] Evaluation note No Assessments Infor mation Available [facility] Evaluation note Diagnosis Multiple thyroid nodules- Primary Nontoxic multinodular goiter Obesity, Class I, BMI 30-34.9 Obesity, unspecified Vasomotor symptoms due to menopause [facility] 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 Facial nerve disorder, unspecified [facility] [place] [facility] Diagnosis Facial nerve motor disorder- Primary Facial nerve disorder, unspecified [facility] Diagnosis 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 noteNo assessment information availableA[facility] Work Phone: Hospital course Narrative No data available for this section [facility] Hospital Discharge instructions No data available for this section [facility] Progress note No data available for this section [facility] Advance Directives No Advanced Directives Records Found Advance Directive Response Recorded Date/ Time Advance Directives No May 2:55pm Documents on File Type Date Recorded 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 Advance Directive(s) 06/24/2019 7:51 AM Advance Directive(s) 06/01/2018 7:17 AM Advance Directive(s) 05/27/2018 1:38 PM Advance Directive(s) 12/12/2009 8:53 PM Documents on File Type Date Recorded 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 Advance Directive(s) 06/24/2019 7:51 AM Advance Directive(s) 06/01/2018 7:17 AM Advance Directive(s) 05/27/2018 1:38 PM Advance Directive(s) 12/12/2009 8:53 PM Documents on File Type Date Recorded 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 Advance Directive(s) 12/12/2009 8:53 PM Advance Directive Response Recorded Date/ Time Advance Directives No May 1:55pm Chief Complaint and Reason for Visit Chief Complaint Screening Chief Complaint Q27.30 R44.1 Reason for Referral Specialty Diagnoses / Procedures Referred By Alisson lin Referred To Contact Diagnoses Vasomotor symptoms due to menopause Procedures CONSULT TO WOMEN'S HEALTH OFFICE/OUTPATIENT [facility] 60-74 MINUTES Shawna Card MD, PhD [address] [place] [address] Vicki Kiser MD [address] [place] [address] Referral ID Status Reason Start Date Expiration Date Visits Requested Visits Authorized [id number] Authorized PCP Requested Referral Auto-Generate d Referral [...] or prosecute any alcohol or drug abuse patient.[facility] the event this information is protected by the Federal Confidentiality of Alcohol and Drug Abuse Patient Records regulations: The Federal rules restrict any use of the information to criminally investigate or prosecute any alcohol or drug abuse patient.[facility] the event this information is protected by the Federal Confidentiality of Alcohol and Drug Abuse Patient Records regulations: The Federal rules restrict any use of the information to criminally investigate or prosecute any alcohol or drug abuse patient.[facility] the event this information is protected by the Federal Confidentiality of Alcohol and Drug Abuse Patient Records regulations: The Federal rules restrict any use of the information to criminally investigate or prosecute any alcohol or drug abuse patient.[facility] the event this information is protected by the Federal Confidentiality of Alcohol and Drug Abuse Patient Records regulations: The Federal rules restrict any use of the information to criminally investigate or prosecute any alcohol or drug abuse patient.[facility] the event this information is protected by the Federal Confidentiality of Alcohol and Drug Abuse Patient Records regulations: The Federal rules restrict any use of the information to criminally investigate or prosecute any alcohol or drug abuse patient.[facility] Reason for Visit (unrecogniz ed section and content) Reason Comments Facial nerve spasm Facial nerve spasm, Botox Specialty Diagnoses / Procedures Referred By Contact Referred To Contact Ent - Otolaryngology / ENT-FACIAL PLASTICS Diagnoses 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, unspecified Alcala's palsy Repeat medical botox injections Procedures BOTULINUM TOXIN A PER 1 UNIT CHEMODNRVTJ [facility] INNERVATED FACIAL NRV UNIL RENEWAL REQUEST INJECTABLE (100 UNITS EVERY 3-4 MONTHS FOR 1 YR[place] [address] [place] [address] Elizabeth Hilliard MD [address] [place] [address] Referral ID Status Reason Start Date Expiration Date V isits Requested Visits Authorized [id number] Authorized 12/13/2021 10/24/2022 99 99 Reason Comments Thyroid Problem Reason Comments Results Reason Comments Botox Injection Referral ID Status Reason Start Date Expiration Date V isits Requested Visits Authorized [id number] Pending Review 12/13/2021 12/12/2022 4 4 Reason Comments Follow Up Botox Specialty Diagnoses / Procedures Referred By Contac t Referred To Contact ENT-OTOLARYNGOLOGY 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 Renewal medical botox Procedures [facility] INNERVATED FACIAL NRV UNIL BOTULINUM TOXIN A PER 1 UNIT Med botox 100 units every 3-4 months for 1 year Elizabeth Hilliard MD [address] [place] [address] Elizabeth Hilliard MD [address] [place] [address] Referral ID Status Reason Start Date Expiration Date V isits Requested Visits Authorized [id number] Authorized 04/01/2023 03/31/2024 99 99 Care Teams (unrecognized sec tion and content) Side Hemmer Relationship Specialty Start Date End Date Gerson Gonzalez Jr. [address] [place] [phone] PCP - General 08/24/01 Side Hemmer Relationship Specialty Start Date End Date Gerson Gonzalez Jr. [address] [facility] [address] [place] [address] PCP - General 08/24/01 Side Hemmer Relationship Specialty Start Date End Date Gerson Gonzalez Jr. [address] [facility] [address] [place] [address] PCP - General 08/24/01 Side Hemmer Relationship Specialty Start Date End Date Gerson Gonzalez Jr. [address] [facility] [address] [place] [address] PCP - General 08/24/01 Side Hemmer Relationship Specialty Start Date End Date Gerson Gonzalez Jr. [address] [facility] [address] [place] [address] PCP - General 08/24/01 Side Hemmer Relationship Specialty Start Date End Date Gerson Gonzalez Jr. [address] [facility] [address] [place] [address] PCP - General 08/24/01 Team Status: Active [...] CREATED AUTHOR AUTHOR'S ORGANIZ ATION 11/07/2023 [facility] DATE CREATED AUTHOR AUTHOR'S ORGANIZ ATION 02/28/2024 [facility] DATE CREATED AUTHOR AUTHOR'S ORGANIZ ATION 04/01/2024 [facility] DATE CREATED AUTHOR AUTHOR'S ORGANIZ ATION 04/14/2024 [facility] Goals (unrecognized section and content) Goals may [...] BE BASED ON THE PRIMARY CLINICAL RECORDS. [facility] [employer] provides no warranty or guarantee of the accuracy or completeness of information in this document.
== END 2024-04-27 10:00 | disposition home or self-care (01) ==
LOC: PST 10:00
PROVIDERS: PCP Internal Medicine; Visit Provider Urology
DX: Z01.810 Encounter for preprocedural cardiovascular examination (principal); N20.0 Calculus of kidney
CPT/HCPCS: 93005

== ENCOUNTER 2024-05-03 07:31 | Outpatient (OUT) | payer MEDICARE, OTHER, SELFPAY ==
--- NOTE | 2024-05-03 | NM_ITS ---
Patient Name: RUPERTO SARAVIA MR#: [id number] : 1955 Exam Date: 05/03/2024 Ordering Doctor: DR ASYA CLEMENTS D.O. RADIOLOGY REPORT PROCEDURE: NM BIMAL PERF SPECT REST STR COMPARISON: None. INDICATIONS: ABNORMAL EKG, CHANGE IN EKG TECHNIQUE: Exam Description: Stress/Rest one day protocol gated SPECT Rest Imagin.0 mCi Tc-99m Cardiolite IV on 05/03/2024 Stress Imaging 30.1 mCi Tc-99m Cardiolite IV on 05/03/2024 Exercise Protocol: 0.4 mg Lexiscan given IV Heart Rate (bpm): Rest: 63 Max: 82 PMHR: 53 Blood Pressure: Rest: 120/70 Max: 124/72 Symptoms: Rest and peak stress ECG findings were normal and the exercise portion of the study was normal per attending physician Dr. Everett . For more details please see separate cardiac stress test report. FINDINGS: QUALITY OF STUDY: Good. PERFUSION DEFECT: LOCATION: Mid-anterior. Apical anterior. SIZE: Small (1-2 segments). SEVERITY: Mild. TYPE: Persistent. WALL MOTION: Normal. LV SIZE: Normal. 94 mL. TID / TCD: None; 0.8 LVEF: Calculated EF 78%. SUMMARY: Myocardial perfusion imaging study has ABNORMAL findings. CONCLUSION: 1. No perfusion abnormality observed to suggest reversible ischemia 2. Pending exercise test results Dictated by: Tarik Hernandez MD on 05/04/2024 at 11:35 Approved by: Tarik Hernandez MD on 05/04/2024 at 11:44
--- OUTSIDE RECORDS SUMMARY | 2024-05-03 07:33 | XMS_ITS | CCD ---
Author Organization [facility] CliniSyor Care Team Providers Care Pattern Duplicator Name Role Phone Gerson Gonzalez Primary Care Provider Self, Referral Attending Provider Unavailable Lisa Carson, Gerson Loja Primary Care Provider GERSON GONZLAEZ JR Primary Care Physician Gerson Gonzalez Jr. Primary Care Provider Gerson Gonzalez Jr. Primary Care Provider DARRICK, DR ARMANDO Melo Consulting Unavailable VALONE, DR NIETO Primary Care Unavailable LEXI DIETZ Admitting Unavailable LEXI DIETZ Attending Unavailable LUKonrad .LEXI Consulting Unavailable VALONE, DR NIETO Primary Care [...] Provider JR Gerson Gonzalez Primary Care Provider [phone] CARLOS Wade Attending Provider [phone] MICHAEL CRUZ Attending Unavailable SHASTA WADE Attending Unavailable SHASTA WADE Referring Unavailable SHASTA WADE Attending Unavailable GABRIEL BEYER Attending Unavailable MICHAEL CRUZ Attending Unavailable SHASTA WADE Attending Unavailable Lexi Reid Attending Unavailable Lexi Reid Attending Unavailable ANN SHANKAR Attending Unavailable Lexi Reid Attending Unavailable Lexi Reid Attending Unavailable Lexi Reid Attending Unavailable GERSON GONZALEZ JR Primary Care Unavail able ELIZABETH HILLIARD Referring Unavailable ELIZABETH HILLIARD Attending Unavailable GERSON GONZALEZ JR Primary Care Unavail able ADINA ROSALES Attending Unavailable Gerson Gonzalez Primary Care Unavailable Shasta Wade Attending Unavailable Shasta Wade C Admitting Unavailable Lisa Carson DO, Charles Lewis Primary Care Provi heladio Allergies Allergy Classification Reported Allergen(s) Allergy Type Date of Onset Reaction(s) Facility (8 sources) Seasonal allergy; Translations: [SEASONAL ALLERGIES] Propensity to adverse reactions 0 Itching [facility] (1 source) Unable to Assess Drug allergy (disorder) 4 [facility] [place] [facility] Repository Medications Current Medications Medication Drug Class(es) Dates Sig (Normalized) Sig (Original) Ascorbic Acid (7 sources) Vitamin C ASCORBIC ACID (V ITAMIN C ORAL) Take by mouth. Active ASCORBIC ACID (V ITAMIN C ORAL) Take by mouth. 0 Active Comment on above: Take by mouth. cholecalciferol 0.05 mg oral capsule (7 sources) Vitamin D Start: 06-01-2008 CHOLECALCIFEROL (VITAMIN D3) 2,000 UNIT CAP Take one(1) tablet daily. 0 06/01/2008 Active Comment on above: Take one(1) tablet d aily. clonazePAM 0.5 mg oral tablet (3 sources) Benzodiazepine Start: 07-23-2022 ClonazePAM 0.5 mg Tab Refills(s) 0 Start Date: 07/23/22 Status: Ordered End: 11-12-2021 clonazePAM (KLONOPIN) 0.5 mg tablet three times daily as needed. 0 11/12/2021 Discontinued (Course of therapy completed) Comment on above: three times daily as needed. ezetimibe 10 mg oral tablet (14 sources) Dietary Cholesterol Absorption Inhibitor Start: 10-03-2021 take 1 tablet by mouth once daily ezetimibe (ZETIA) 10 mg tablet Take 10 mg by mouth once daily. 10/03/2021 Active Start: 07-24-2021 take 1 mg by mouth once daily ezetimibe mg, Oral, Daily Start Date: 07/24/21 Status: Ordered Comment on above: Take 10 mg by mouth once daily. FLUoxetine 20 mg oral capsule (14 sources) Serotonin Reuptake Inhibitor Start: 11-26-2022 take [...] Refills(s) 0 Start Date: 06/24/23 Status: Ordered Magnesium Oxide-Mg Amino Acid Chelate 300 mg cap (4 sources) take 1 capsule by mouth once daily at bedtime Magnesium Oxide-Mg Amino Acid Chelate 300 mg cap Take 300 mg by mouth daily at bedtime. Active take 1 capsule by [facility] once daily at bedtime Magnesium Oxide-Mg Amino Acid Chelate 30 0 mg cap Take 300 mg by mouth daily at bedtime. 0 Active Comment on above: Take 300 mg by mouth daily at bedtime. propranolol hydrochloride 20 mg oral tablet (14 sources) beta-Adrenergic Vamshi Start: 2 propranolol (INDERAL) 20 mg tablet as needed. 11/06/2021 Active Comment on above: as needed. tamsulosin hydrochloride 0.4 mg oral capsule (3 sources) alpha-Adrenergic Vamshi Start: 4 take 1 capsule by mouth once daily tamsulosin 0.4 mg Cap 0.4 mg = 1 cap(s), Oral, Daily, # 30 cap(s), Refills(s) 0, Pharmacy: [facility]/pharmacy #[id number], 175, cm, 03/17/24 12:54:00 EDT, Height/Length Dosing, 95, kg, 03/17/24 12:54:00 EDT, Weight Dosing Start Date: 03/17/24 Status: Ordered Vitamin B Complex (7 sources) Start: 9 take 1 tablet by mouth once daily vitamin b complex tab Take 1 tablet by mouth once daily. 08/03/2018 Active Start: 08-03-2018 take 1 tablet by ramírez th once daily vitamin b complex tab Take 1 tablet by mouth once daily. 0 08/03/2018 Active Comment on above: Take 1 tablet by ramírez th once daily. Completed/Discontinued Medications Medication Drug Class(es) Dates Sig (Normalized) Sig (Original) acetylcysteine in water/PF (ACETYLCYSTEINE, PF, IN WATER) 10 % drop (1 source) Start: 0 End: 2 take 1 drop(s) into the eye(s) three times daily acetylcysteine in water/PF (ACETYLCYSTEINE, PF, IN WATER) 10 % drop Use 1 Drop in the right eye three times daily. 10 mL 11 08/16/2019 11/12/2021 Discontinued Comment on above: Use 1 Drop in the ri ght eye three times daily. onabotulinumtoxina 100 unt injection (5 sources) Acetylcholine Release Inhibitor Start: 4 End: 4 inject 1 dose by intramuscular injection every 30 days 81 Units, INTRAMUSCULAR, ONCE (UP TO 30 DAYS AMB), 1 dose, On Thu04/22/24 at 1130, This record documents the total dose provided to patient. See progress note for specific locations and amounts administered. REFRIGERATE - Pharmaceutical Waste: Lab Pack - Start: 04-22-2024 End: 04-22-2024 onabotulinum toxin type A 81 Units injection (BOTOX) Start: 04-10-2023 End: 05-10-2023 onabotulinum toxin type A 90 Units injection (BOTOX) Start: 06-01-2022 End: 06-01-2022 onabotulinum toxin type A 10 0 Units injection (BOTOX) Start: 01-19-2022 End: 01-19-2022 onabotulinum toxin type A 94 Units injection (BOTOX) 24 hr buPROPion hydrochloride 300 mg extended release oral tablet (1 source) Aminoketone Start: 08-30-2022 End: 04-10-2023 take 1 tablet by mouth once daily in the morning buPROPion XL (WELLBUTRIN XL) 300 mg 24 hr tablet Take 300 mg by mouth every morning. 0 08/30/2022 04/10/2023 Discontinued (Course of therapy completed) Comment on above: Take 300 mg by mouth every morning. dexamethasone 0.001 mg/mg / neomycin 0.0035 mg/mg / polymyxin b 10 unt/mg ophthalmic ointment (1 source) Aminoglycoside Antibacterial, Polymyxin-class Antibacterial, Corticosteroid Start: 07-01-2019 End: 11-12-2021 neomycin/polymyxin b/dexametha(MAXITROL 3.5 MG/G-10,000 UNIT/G-0.1 % EYE OINTMENT) four [...] twice daily x 1 week, then stop. famciclovir 500 mg oral tablet (1 source) Herpes Simplex Virus Nucleoside Analog DNA Polymerase Inhibitor Start: 12-14-2020 End: 11-12-2021 famciclovir (FAMVIR) 500 mg tablet lisdexamfetamine dimesylate [...] tablet (8 sources) HMG-CoA Reductase Inhibitor Start: 07-24-2021 End: 04-10-2023 take 1 tablet by mouth once daily pravastatin (PRAVACHOL) 10 mg tablet Take 10 mg by mouth once daily. 0 11/01/2021 04/10/2023 Discontinued (Course of therapy completed) Comment on above: Take 10 mg by mouth once daily. sertraline 25 mg oral tablet (1 source) Serotonin Reuptake Inhibitor Start: 12-27-2020 End: 11-12-2021 sertraline (ZOLOFT) 25 mg tablet Zinc (1 source) Start: 08-03-2018 End: 11-12-2021 Zinc 50 mg tab Take by mouth. 0 08/03/2018 11/12/2021 Discontinued Comment on above: Take by mouth. 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 Calculus of urinary tract (17 sources) Kidney stone; Translations: [Calculus of kidney] Onset: 01-15-2022 Episodic Cardiac and circulatory congenital anomalies (7 sources) Congenital anomaly of cerebrovascular system; Translations: [...] (7 sources) Headache 07-24-2021 Episodic Menopausal disorders (8 sources) Menopausal syndrome; Translations: [Menopausal and female [...] 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] Onset: 12-21-2013 12-21-2013 Chronic Other eye disorders (7 sources) Nystagmus 07-24-2021 Chronic Other hereditary and degenerative nervous system conditions (7 sources) Myoclonus; Translations: [Myoclonus] 06-01-2008 Chronic Other nervous system disorders (1 source) Facial spasm; 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, unspecified] Episodic Other nervous system disorders (3 sources) Facial nerve motor disorder; Translations: [Other disorders of facial nerve] Episodic Other nervous system disorders (2 sources) Facial palsy; 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] 04-10-2023 Episodic Other nutritional; endocrine; and metabolic disorders (8 sources) Obese class I; Translations: [Obesity, unspecified] Onset: 11-12-2021 Chronic Other nutritional; endocrine; and metabolic disorders (7 sources) Body mass index 30+ - obesity 09-18-2021 Chronic Thyroid disorders (15 sources) Multinodular goiter; Translations: [Nontoxic multinodular goiter] Onset: 11-12-2021 Chronic Unclassified (1 source) Obstructive hydronephrosis 04-13-2024 Past or Other Problems Problem Classification Problem Date Documented Date Episodic/Chronic Blindness and vision defects (1 source) Visual hallucinations; Translations: [Visual hallucinations] Onset: 4 Episodic Disorders of teeth and jaw (7 sources) Articular disc disorder of temporomandibular joint; Translations: [Articular disc disorder of temporomandibular joint, unspecified side] Onset: 0 04-24-2010 Episodic Other bone disease and musculoskeletal deformities (1 source) Other specified disorders of bone density and structure, left thigh; Translations: [OTH D/O BONE DEN STRUCT LT THIGH] Onset: 2 Episodic Other connective tissue disease (7 sources) Trismus; Translations: [Cramp and spasm] Onset: 0 03-27-2010 Episodic Other connective tissue disease (7 sources) Muscle pain; Translations: [Myalgia and myositis, unspecified] Onset: 1 05-07-2011 Episodic Other connective tissue disease (7 sources) Muscle, ligament and fascia disorders; Translations: [Disorder of muscle, unspecified] Onset: 3 11-04-2012 Episodic Other connective tissue disease (1 source) Calcaneal spur, right foot; Translations: [CALCANEAL SPUR RIGHT FOOT] Onset: 2 Episodic Other connective tissue disease (4 sources) Pain in right foot; Translations: [PAIN IN RIGHT FOOT] Onset: 2 Episodic Other eye disorders (7 sources) Abducens nerve palsy; Translations: [Sixth [abducent] nerve palsy, unspecified eye] Onset: 8 06-01-2008 Episodic Other nervous system disorders (7 sources) Cranial nerve disorder; Translations: [Cranial nerve [...] cyst Your Care Team Attending Physician - Franklin FLOYD, Lexi Regalado Primary Care Physician - GERSON GONZALEZ JR, [...] glands produce too much parathyroid hormone (primary hyperparathyroidism) , which causes too much calcium buildup in [...] beam o (more content not included)... Normal [facility] Urology Office/Clinic Noteon 04-13-2024 Urology Office/Clinic Note Urology Office/Clinic Note Chief Complaint 9 month follow up with KUB, CEASAR HPI Staff 68 yr old [facility] patient here for 9 month f/u w/ KUB and CEASAR. KUB and CEASAR done 04/07/24 at [facility]. Per pt one stone [...] nonobstructing nephr (more content not included)... Normal [facility] Comment on above: Result Comment: Elec tronically Signed By: Franklin FLOYD, Lexi Regalado\.br\Date and Time Signed: 04/13/24 12:21 EDT\.br\Electronically Co-Signed By: Andrew Marin\.br\Date and Time Co-Signed: 04/13/24 11:45 EDT\.br\Electronically Co-Signed By: Andrew Marin\.br\Date and Time Co-Signed: 04/13/24 11:46 EDT CNOVon 03-30-2024 CNOV Office Visit (OTPREJ) RUPERTO SARAVIA ([id number]) 1955 F Date Time Provider Department 03/30/24 11:00 AM ELIZABETH HILLIARD OTPREJ During your visit today, we recorded the following information about you: Paulina Jerez RN 03/30/2024 11:31 AM Signed Tobacco Use: 1.5 packs/day, for 18 years. Quit 07/20/1999. Types: Cigarettes Was smoking cessation packet given? N/A - Patient is a non-smoker or quit >1 year ago. Was a referral initiated?N/A Patient is a non-smoker. Paulina Jerez RN March 30, 2024 11:31 AM Elizabeth Hilliard MD 04/27/2024 9:37 PM Signed [facility] Name: Ruperto Babb Sachin Date of Service: 03/30/24 Patient ID: 66 year old female w/ [...] routine botox injections. Doing well since last visit. She has return of her synkinesis of feeling of tightness in the left eye, left oral commisure, and left platysma. Exam: FACE Right facial paralysis with minimal voluntary movement and spontaneous spasm Significant asymmetry due to hyperdynamic function of all divisions of left facial nerve - Frontalis and orbicularis oculi, zygomaticus major, levator labii and behavior therapist Redemonstrated severe lateral pull of upper lip to left - related to midface muscles and hyperdynamic orbicularis williams - EYE -Downward pull due to platysma, mentalis, depressor right eye closure complete, weight in good position -Lower lid position good Procedure note: Injection facial botox Technique: 100u/1cc botox injected into: Left orbicularis oculi (3u, 2 sites) = 6 U Left lower pretarsal ( 2u, 2 site) = 4 U Left levator alaeque nasi (2u, 2site) = 4 U Left levator labii (1 site 3 unit(s)) = 3 U Lateral to philtrum (2u, 2 sites) = 4 U Left behavior therapist (3u, 2 site) = 6 U Left procerus (3u, 1 site) = 3 U Left mentalis (3u, 2 sites) 6 U Left platysma (3u, 14 x sites) = 42 units Left TAMRA (3u, 1 site) = 3 U Total: 81 units used (19 Units of botox discarded) Assessment: 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 Here today for botox injections and procedure was tolerated well. Plan: - Myectomy discussed, but patient is not interested at this time. - RTC in 3-4 months for repeat botox injections with either or Dr. José Hilliard MD [facility] and [facility] ADDENDUM: I performed the procedure and discussed the patient's management with the fellow. I reviewed and edited the note and agree with the documented findings and treatment plan. Elizabeth Hilliard MD [facility] and Neck Hat Finisher, Facial Plastic and Microvascular Surgery UNIVERSAL PROTOCOL / SAFETY CHECKLIST Procedure to be Performed: Facial botox Sign In: A Moment of CARE was completed. Personnel directly involved with the procedure wore the appropriate PPE (Personal Protective Equipment). Patient/Surrogate Stated/Verified: PATIENT VERIFIED(optional for EMERGENT procedures): Patient name, Date of , Relevant allergies, and The intended procedure Time Out Communication: Intended patient and procedure match the source documents. Consent documented and matches the intended procedure. No relevant labs, photos, and/or imaging studies were applicable for review. No correct side/site applicable for marking and visibility. Medications required for procedure verified. No fire risk assessment and interventions applicable. Sign Out: SIGN OUT (optional for EMERGENT procedures): No specimen collected. No instruments, equipment or retained foreign bodies applicable. Post-procedure follow-up management communicated and Plan of Care Visit completed when applicable. 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 - ezetimibe (ZETIA) 10 mg tablet Take 10 mg by mouth once daily. - propranolol (INDERAL) 20 mg tablet as needed. - vitamin b complex tab (more content not included)... Normal [facility] Ambulatory Visit Summaryon 0 03-17-2024 Ambulatory Visit [...] FLOYD, Lexi Regalado Where: [facility] [address] [place] [address] [place] [address]- You Need to Schedule the Following Appointments Follow Up with RAAD GONZALEZ, BUDDY MCKOY When: Where: [address] [place] [address] [phone] Medications What How Much When Instructions Unchanged [...] for choosing us for your care. Normal [facility] Urology Office/Clinic Noteon 03-17-2024 Urology Office/Clinic Note [...] urine cx done with her PCP in [facility]. Urine cx 03/09/24: negative PVR: 0 ml [...] 6mm L nonobstructing nephrolith. No L hydro. [place] she was passing a stone 2wks ago. [...] Information Franklin FLOYD, Lexi Regalado, URL, [facility] [address], [place] [address]- [phone] Additional Instructions: keep 04/06/24 appt Patient Education Kidney Stones, Zfux-ne-Fdap Documentation recorded by the scribe Alejandra Garcia accurately reflects the services(s) I performed and decisions made by me. Authenticated by Ann Shankar PA-C on 03/17/2024 14:49:21. I, Alejandra Garcia, personally scribed for Ann Shankar PA-C on 03/17/2024 13:1 (more content not included)... Normal [facility] Comment on above: Result Comment: Elec tronically Signed By: ANN SHANKAR PA-C\.br\Date and Time Signed: 03/17/24 14:49 EDT\.br\Electronically Co-Signed By: Alejandra Garcia\.br\Date and Time Co-Signed: 03/17/24 13:16 EDT Reminderson 12-30-2023 Reminders - From: Alejandra Garcia To: KERMIT - Recallkirill Lukonrad; Sent: 06/24/2023 08:37:16 EST Show up: 11/23/2023 09:37:00 EDT Subject: KUB and CEASAR prior to appt Reminder Message Please Remember to:_have pt get KUB and CEASAR prior to appt. Pt has gone to [facility] in the past. KUB/CEASAR order faxed to [facility]. Called pt and left VM to return our call. Pt moved appointment back to 03/30/24 Normal [facility] ISTAT XRay CREon 11-03-2023 ISTAT GFR > 60.0 Normal [facility] Comment on above: Result Comment: PERF ORMED BY: [place] [address] PATHOLOGIST ALL ROUND LOGGER TIFFANIE ROSS M.D. Performed By: #### I SCRE #### [address] MR head/brain wo/w conon MR head/brain wo/w [facility] [place] [address] [place] [address] MRI Report Signed Patient: Ruperto Saravia MR#: [id number] : 1955 Acct:[id number] Age/Sex: 68 / F ADM Date: 11/03/23 Loc: MR Room: Type: [facility] Attending Dr: Shasta Wade PA-C [...] Sanjiv Reis M.D.11/03/2023 3:10 PM Dictation Location: [place] [address] Transcribed By: [facility] 11/03/23 1510 Dictated By: Sanjiv Reis II, MD 11/03/23 1410 Signed By: 11/03/23 151 Normal [facility] No Panel InformationOrdered By: Shasta Wade on 11-03-2023 Bedside Estimated GFR (eGFR) > 60.0 [facility] [place] [facility] Whole blood creatinine measu rementOrdered By: Shasta Wade on 11-03-2023 Creatinine [Mass/Vol] 0.6 mg/dL Normal 0.6-1.3 [facility] Comment on above: ER/ESD physician is notified/shown all ISTAT results.Critical values may be confirmed by laboratory testing ifdeemed necessary by ER attending doctor. Result Comment: ER/E SD physician is notified/shown all ISTAT results. Critical values may be confirmed by laboratory testing if deemed necessary by ER attending doctor. Performed By: #### I SCRE #### [facility] [address] [place] [address] CNCOon 10-14-2023 CNCO Letter Text Normal [facility] CNOVon 10-09-2023 CNOV Office Visit (OTOLMN) RUPERTO SARAVIA ([id number]) 1955 F Date Time Provider Department 10/09/23 10:00 AM ADINA ROSALES OTOLMN During your visit today, we recorded the following information about you: Adina Rosales MD 10/18/2023 4:43 PM Signed [facility] Name: Ruperto [...] orbicularis oculi, zygomaticus major, levator labii and behavior therapist - Severe lateral pull of upper lip [...] units 1 site) = 2 U Left behavior therapist (3u, 2 site) = 6 U Left procerus (3u, 1 site) = 3 U Left mentalis (2u, 3 sites) 6 U Left platysma (3u, 18 x sites) = 54 units Right TAMRA (3U 1 site)=3U Right behavior therapist (2U, 2 sites) = 4U Right lateral orbicularis infrabrow= 2U, 1 site=2U Right platysma (3U [id number]) = 9 U Total: 120 units used [...] MD Facial Plastic and Reconstructive Surgery Fellow [facility] Bogdan Mirza RN 10/09/2023 10:38 AM Signed [...] disordr [M26.639] 04/24/2010 Myalgia and myositis, unspecified [[id number]] 05/07/2011 Unspecified disorder of muscle, ligament, and [...] a r (more content not included)... Normal [facility] Patient Educationon 06-24-20 Patient Education Nephrology Dietary [...] ? 8 oz (237 mL) of milk, calcium-fortifiednon -dairy milk, and calcium-fortifiedfru it juice. Calcium-fortified means that calcium has been [...] Spinach (cooked), rhubarb, beets, sweet potatoes, and Afghan chard. ? Peanuts. ? Potato chips, georgian fries, and baked potatoes with skin on. ? Nuts and nut products. ? Chocolate. ? If you regularly take a diuretic medicine, make sure to eat at least 1 or 2 servings of fruits or vegetables that are high in potassium each day. These include: ? Avocado. ? Banana. ? Gates, prune, carrot, or tomato juice. ? Baked [...] fish oil, or vitamin B6. ? Take hipp-nwg-dkoylbv and prescription medicines only as told by your health care provider. These include supplements. What foods sh (more content not included)... Normal [facility] Urology Office/Clinic Noteon 06-24-2023 Urology Office/Clinic Note [...] no stones id'd but bowel limits study. CAESAR 06/08/23 [facility] - nonobstructing bilateral renal stones, [...] renal cyst (N28.1: Cyst of kidney, acquired) [facility] 06/08/23 [facility] - 1.3 x 1.5 [...] Information Franklin FLOYD, Lexi Regalado, URL, [facility] [address], [place] [address]- [phone] Additional Instructions: 6 mos w/ KUB and [...] Simple renal (more content not included)... Normal [facility] Comment on above: Result Comment: Elec tronically Signed By: Lexi Reid MD\.br\Date and Time Signed: 06/24/23 08:45 EST\.br\Electronically Co-Signed By: Alejandra Garcia\.br\Date and Time Co-Signed: 06/24/23 08:35 EST RAD - MISCon 06-09-2023 RAD - MISC [id number]# 1.00TIFF Normal [facility] RAD - Ultrasound Reporton RAD - Ultrasound Report [id number]# 1.00TIFF Normal [facility] CT ABD/PELVIS WO CONon 11-12 CT ABD/PELVIS [...] by: ARMANDO HOLLINGSWORTH Date: 2022-11-12 11:22 Normal [facility] US KIDNEYSon 07-08-2022 US KIDNEYS US KIDNEYS EXAM DATE: 07/08/2022 5:54 AM MST COMPARISON: Same day radiograph, CT abdomen and pelvis without contrast 07/31/2021 INDICATION: History of kidney stones. TECHNIQUE: Real-time ultrasound scanning of the kidneys and bladder was performed by the nuclear supervising operator. Construction Stonemason static images are submitted for review. FINDINGS: [...] by: JARAD BENAVIDES Date: 2022-07-08 16:58 Normal [facility] XR KUB 1 VIEWon 07-08-2022 XR KUB [...] by: JARAD BENAVIDES Date: 2022-07-08 17:05 Normal [facility] XR DEXA BONE DENSITYon 06-05 XR DEXA [...] by: ARMANDO HOLLINGSWORTH Date: 2022-06-05 12:51 Normal [facility] CT FOOT RT WO CONon 02-28-20 CT [...] by: ARMANDO HOLLINGSWORTH Date: 2022-02-27 18:17 Normal [facility] T4 FREE/FREE THYROXon 2021 Free T4 [Mass/Vol] 1.0 ng/dL 0.9 - 1.7 ng/dL [facility] TSH BLDon 11-12-2021 TSH Qn 2.420 m[IU]/L 0.270 - 4.200 mIU/L [facility] Vital Signs Date Time Vital Sign Value Performing Clinician Faci lity 04-13-2024 10:56-0400 Diastolic blood pressure 76 mm[Hg] Lexi Lue [facility] 04-13-2024 10:56-0400 Heart rate 68 /min Lexi Lue [facility] 04-13-2024 10:56-0400 Respiratory rate 16 /min Lexi Lue [facility] 04-13-2024 10:56-0400 Systolic blood pressure 118 mm[Hg] Lexi Lue [facility] 04-12-2024 12:47-0400 Blood Pressure Location Lexi Lue [facility] 04-12-2024 12:47-0400 Diastolic blood pressure 76 mm[Hg] Lexi Lue [facility] 04-12-2024 12:47-0400 Heart rate 68 /min Lexi Lue [facility] 04-12-2024 12:47-0400 Respiratory rate 16 /min Lexi Lue [facility] 04-12-2024 12:47-0400 Systolic blood pressure 118 mm[Hg] Lexi Lue [facility] 03-17-2024 13:16-0400 Diastolic blood pressure 82 mm[Hg] ANN RAAD [facility] 03-17-2024 13:16-0400 Mean blood pressure 108 mm[Hg] ANN RAAD [facility] 03-17-2024 13:16-0400 Systolic blood pressure 160 mm[Hg] ANN RAAD [facility] 03-17-2024 12:51-0400 Blood Pressure Location ANN RAAD [facility] 03-17-2024 12:51-0400 Diastolic blood pressure 82 mm[Hg] ANN RAAD [facility] 03-17-2024 12:51-0400 Heart rate 80 /min ANN RAAD [facility] 03-17-2024 12:51-0400 Respiratory rate 16 /min ANN RAAD [facility] 03-17-2024 12:51-0400 Systolic blood pressure 160 mm[Hg] ANN RAAD [facility] 11-03-2023 11:21-0400 Body height 175.26 cm JR Gerson Gonzalez Work Phone: [facility] 11-03-2023 11:21-0400 Body weight 97.52 kg JR Gerson Gonzalez Work Phone: [facility] 11-26-2022 07:56-0400 Blood Pressure Location Lexi Lue [facility] 11-26-2022 07:56-0400 Diastolic blood pressure 67 mm[Hg] Lexi Lue [facility] 11-26-2022 07:56-0400 Heart rate 62 /min Lexi Lue [facility] 11-26-2022 07:56-0400 Systolic blood pressure 113 mm[Hg] Lexi Lue [facility] 01-15-2022 10:13-0400 Blood Pressure Location Lexi Lue [facility] 01-15-2022 10:13-0400 Diastolic blood pressure 73 mm[Hg] Lexi Lue [facility] 01-15-2022 10:13-0400 Heart rate 70 /min Lexi Lue [facility] 01-15-2022 10:13-0400 Respiratory rate 16 /min Lexi Lue [facility] 01-15-2022 10:13-0400 Systolic blood pressure 122 mm[Hg] Lexi Lue [facility] 11-12-2021 10:56-0400 Body height 175.3 cm Shawna Crad MD, PhD Work Phone: [facility] 11-12-2021 10:56-0400 Body weight 98.88 kg Shawna Card MD, PhD Work Phone: [facility] 11-12-2021 10:56-0400 Diastolic blood pressure 74 mm[Hg] Shawna Card MD, PhD Work Phone: [facility] 11-12-2021 10:56-0400 Heart rate 64 /min Shawna Card MD, PhD Work Phone: [facility] 11-12-2021 10:56-0400 Systolic blood pressure 128 mm[Hg] Shawna Card MD, PhD Work Phone: [facility] Encounters Encounter Date Encounter Type Care Provider Facility Start: 05-11-2024 ambulatory Lexi Patton. Reneee Facility:[facility] Start: 04-13-2024 End: 04-13-2024 ambulatory Lexi M. Lue Facility:[facility] [place] Start: 04-13-2024 End: 04-13-2024 Patient encounter procedure [facility] M. Reneee [facility] Start: 04-08-2024 End: 04-08-2024 ambulatory Lexi M. Lue Facility:[facility] [place] Start: 04-08-2024 End: 04-08-2024 Patient encounter procedure Lexi M. Lue [facility] Start: 04-06-2024 ambulatory Lexi M. Lue Facility:[facility] [place] Start: 03-30-2024 End: 03-30-2024 ambulatory GERSON GONZALEZ JR Facility:[facility] Start: 03-30-2024 End: 03-30-2024 Patient encounter procedure Elizabeth Hilliard MD Work Phone: Facial Plastics/Reconstruction Comment on above: Facial paralysis (Pr imary Dx); Facial nerve motor disorder Start: 03-17-2024 End: 03-17-2024 ambulatory ANN SHANKAR Facility:[facility] Start: 03-17-2024 End: 03-17-2024 Patient encounter procedure ANNALFREDITO SHANKAR [facility] Start: 02-25-2024 End: 02-25-2024 ambulatory SHASTA WADE Not Available Start: 02-02-2024 End: 02-02-2024 ambulatory MICHAEL FELTER Not Available Start: 01-28-2024 End: 01-28-2024 ambulatory MICHAEL A FELTER Not Available Start: 01-11-2024 End: 01-11-2024 ambulatory GABRIEL BEYER Not Available Start: 12-28-2023 End: 12-28-2023 ambulatory SHASTA WADE Not Available Start: 12-10-2023 End: 12-10-2023 ambulatory SHASTA WADE Not Available Start: 11-12-2023 End: 11-12-2023 ambulatory SHASTA WADE Not Available Start: 11-03-2023 End: 11-03-2023 Patient encounter procedure JR Nieto Lisa Work Phone: [facility] Work Phone: Start: 11-03-2023 End: 11-03-2023 ambulatory JR Gerson Owens Lisa Work Phone: [facility] Work Phone: Start: 10-09-2023 End: 10-09-2023 ambulatory GERSON GONZALEZ JR Facility:[facility] Start: 08-24-2023 End: 08-24-2023 ambulatory JR Gerson Owens Lisa Work Phone: [facility] Work Phone: Start: 08-24-2023 End: 08-24-2023 Patient encounter procedure JR Nieto Lisa Work Phone: [facility] Work Phone: Start: 08-06-2023 End: 08-06-2023 ambulatory MICHAEL A FELTER Not Available Start: 06-24-2023 End: 06-24-2023 ambulatory [facility] Start: 06-24-2023 End: 06-24-2023 Patient encounter procedure Lexi Reid [facility] Start: 04-10-2023 End: 04-10-2023 Patient encounter procedure Adina Rosales MD Work Phone: Otolaryngology Comment on above: Facial paralysis (Pr imary Dx) Start: 11-26-2022 End: 11-26-2022 Patient encounter procedure Leix Reid [facility] Start: 11-12-2022 End: 11-13-[address] ARMANDO HOLLINGSWORTH Facility: Start: 09-10-2022 ambulatory Elizabeth Hilliard MD Work Phone: [facility] Start: 09-10-2022 Patient encounter procedure Elizabeth Hilliard MD Work Phone: Facial Plastics/Reconstruction Comment on above: Botox Appointment Start: 07-23-2022 End: 07-23-2022 Patient encounter procedure Lexi Reid [facility] Start: 07-08-2022 End: 07-09-2022 ambulatory LEXI REID . Facility: Start: 06-05-2022 End: 06-06-[address] GERSON GONZALEZ Facility:[facility] Start: 05-16-2022 End: 05-16-2022 Patient encounter procedure Elizabeth Hilliard MD Work Phone: Facial Plastics/Reconstruction Comment on above: Facial nerve motor d isorder (Primary Dx) Start: 02-27-2022 End: 02-28-2022 ambulatory VINCENT BURCIAGA Facility:[facility] Start: 02-19-[address] GERSON GONZALEZ Facil ity:[facility] Start: 01-15-2022 End: 01-15-2022 Patient encounter procedure Lexi Reid [facility] Start: 12-25-2021 End: 12-26-2021 ambulatory ALHAJI Reis [facility]ED [facility] Facility:[facility] Start: 12-13-2021 End: 12-13-2021 Patient [...] Patient encounter procedure Gerson Gonzalez Work Phone: [facility] Breast Care Procedures Date Procedure Procedure Detail Performing Clinician Start: 11-03-2023 MRI of head JR Gerson Gonzalez Work Phone: Start: 11-23-2020 Screening mammograph y of bilateral breasts Gerson Gonzalez Work Phone: Start: 10-19-2003 Procedure on brain Nasreen aileen Reid Ankle region structu re (body structure) Lexi Reid Procedure on eye Lexi Reid Plan of Treatment Date Care Activity Detail Author Start: 09-24-2031 RSV Vaccine (1 - 1-d ose 75+ series) RSV Vaccine (1 - 1-dose 75+ series) [facility] Start: 04-24-2024 Screening for malign ant neoplasm of colon [facility] Start: 03-20-2024 Covid-19 Vaccine ( season) Covid-19 Vaccine ( season) [facility] Start: 03-20-2024 Influenza vaccination Influenza Vacc ine (#1) [facility] Start: 07-20-2023 Advance Directive Discussion Advance Directive Discussion [facility] Start: 03-20-2023 Influenza vaccination Influenza Vacc ine (#1) [facility] Start: 11-07-2022 Screening for malign ant neoplasm of breast Mammogram Screening [facility] Start: 07-20-2022 ADVANCE DIRECTIVE DISCUSSION ADVANCE DIRECTIVE DISCUSSION [facility] Start: 07-20-2022 DEPRESSION ASSESSMENT DEPRESSION ASS ESSMENT [facility] Start: 03-20-2022 Influenza vaccination C [facility] Start: 10-31-2021 COVID-19 VACCINE (4 - Booster for Pfizer series) COVID-19 VACCINE (4 - Booster for Pfizer series) [facility] Start: 2021 ADVANCE DIRECTIVE DISCUSSION ADVANCE DIRECTIVE DISCUSSION [facility] Start: 2021 BONE DENSITY BONE DENSITY [facility] Start: 2021 Bone Density Screening Bone Density Screening [facility] Start: 2021 Pneumococcal Vaccine : 65+ (1 - PCV) Pneumococcal Vaccine: 65+ (1 - PCV) [facility] Start: 2021 Pneumococcal Vaccine : 65+ (1 of 1 - PCV) Pneumococcal Vaccine: 65+ (1 of 1 - PCV) [facility] Start: 2021 PNEUMOCOCCAL: 65+ (1 - PCV) PNEUMOCOCCAL: 65+ (1 - PCV) [facility] Start: 2021 PNEUMOVAX AGE 65 AND OVER WITH 5YR LOOKBACK (#1) PNEUMOVAX AGE 65 AND OVER WITH 5YR LOOKBACK (#1) [facility] Start: 2021 Screening for osteoporosis Bone Dens ity Screening [facility] Start: 08-27-2021 COVID-19 VACCINE (4 - Booster for Pfizer series) COVID-19 VACCINE (4 - Booster for Pfizer series) [facility] Start: 08-27-2021 Covid-19 Vaccine (4 - Pfizer series) Covid-19 Vaccine (4 - Pfizer series) [facility] Start: 07-20-2021 DEPRESSION ASSESSMENT DEPRESSION ASS ESSMENT [facility] Start: 12-24-2012 DIABETES SCREEN DIABETES SCREEN [facility] Start: 12-24-2012 Diabetes Screening Diabetes Screenin g [facility] Start: 2006 SHINGRIX VACCINE (1 of 2) SHINGRIX V ACCINE (1 of 2) [facility] Start: 2001 COLOGUARD (FIT-DNA) COLOGUARD (FIT-D NA) [facility] Start: 2001 Colonoscopy COLONOSCOPY [facility] Start: 2001 COLORECTAL CANCER SCREENING COLORECTAL CANCER SCREENING [facility] Start: [address] COLONOGRAPHY [facility] Start: 2001 FECAL OCCULT BLOOD FECAL OCCULT BLOO D [facility] Start: 2001 Lipid 1996 panel - S john or Plasma Lipid Screening [facility] Start: 2001 Lipid panel Lipid Screening [facility] Start: 2001 LIPID SCREEN LIPID SCREEN [facility] Start: 2001 Screening for malign ant neoplasm of colon [facility] Start: 2001 SIGMOIDOSCOPY SIGMOIDOSCOPY [facility] Start: 1996 Mammography [facility] Start: 09-24-1975 Urine microalbumin profile [facility] Start: 1974 Depression Screening Depression Scre ening [facility] Start: 1974 HEPATITIS C SCREENING HEPATITIS C [facility] Start: 1974 Hepatitis C screening Hepatitis C [facility] Start: 1974 HIV SCREENING HIV SCREENING [facility] Start: 1968 Adult depression scr eening assessment DEPRESSION SCREENING [facility] Immunizations Immunization Date Immunization Notes Care Provider Rosa tom 07-02-2021 SARS-CoV-2 (COVID-19 ) mRNA BNT-162b2 vax Lexi Lue [facility] 01-08-2021 SARS-CoV-2 (COVID-19 ) mRNA BNT-162b2 vax Lexi Lue [facility] 10-08-2020 SARS-CoV-2 (COVID-19 ) mRNA BNT-162b2 vax Lexi Lue [facility] 07-20-2020 SARS-CoV-2 (COVID-19 ) mRNA BNT-162b2 vax Lexi Reid [facility] Payers Date Payer Category Payer Self-pay [id number] 2023 Unknown [id number] 2017 Private Health Insurance [facility] UMR CHOICE PLUS [id number] 2017-Present [phone] [address] [address] [place] [address] O [id number] 2017 Private Health Insurance [facility] UMR CHOICE PLUS [id number] 2017-Present [phone] [address] [address] [place] [address] O [id number] 2012 Unknown DENTAL DENTAL GE NERIC [id number] 2012-Present [phone] [address] [address] [place] [address] Dental [id number] 2005 Medicare MEDICARE MEDICAR E A AND B [id number] 2005-Present [phone] [address] [address] [place] [address] Medicare [id number] 2005 Medicare [id number]. [id number] 1959 Medicare [id number] 1959 Private Health Insurance [id number] 1956 Unknown [id number] 2.16.840.1.156641.3.579.2. 593 1956 Unknown [id number] 2.16.840.1.438441.3.579.2. 593 1956 Unknown [id number] 2.16.840.1.877542.3.579.2. 593 1956 Unknown [id number] 2.16.840.1.824700.3.579.2. 593 1956 Unknown [id number] 2.16.840.1.778403.3.579.2. 593 1956 Unknown [id number] 2.16.840.1.439637.3.579.2. 593 1956 Unknown [id number] 2.16.840.1.824102.3.579.2. 1259 1956 Unknown [id number] 2.16.840.1.926199.3.579.2. 1259 1956 Unknown [id number] 2.16.840.1.518600.3.579.2. 1259 1956 Unknown [id number] 2.16.840.1.200768.3.579.2. 1259 1956 Unknown [id number] 2.16.840.1.834513.3.579.2. 1259 1956 Unknown [id number] 2.16.840.1.357624.3.579.2. 1259 1956 Unknown [id number] 2.16.840.1.272768.3.579.2. 1259 1956 Unknown [id number] 2.16.840.1.423474.3.579.2. 1259 1956 Unknown [id number] 2.16.840.1.997103.3.579.2. 727 1956 Unknown [id number] 2.16.840.1.803173.3.579.2. 727 1956 Unknown [id number] 2.16.840.1.935036.3.579.2. 727 1956 Unknown [id number] 2.16.840.1.182495.3.579.2. 727 1956 Unknown [id number] 2.16.840.1.923780.3.579.2. 727 Medicare Self Pay [id number] Unknown [id number] Unknown [id number] 2.16.840.1.362305.3.579.2. 531 Social History Date Type Detail Facility Tobacco smoking stat [facility] Unknown if ever smoked [facility] Start: 1955 [address] Female [facility] Start: 09-18-2021 End: 05-16-2022 Tobacco smoking status NHIS Ex-smoker [facility] Start: 07-20-1981 End: 07-20-1999 History of tobacco use Current smoker [facility] Start: 07-20-1981 End: 07-20-1999 History of tobacco use Cigarette Smoker [facility] Start: 11-12-2021 End: 10-09-2023 Alcohol intake Current non-drinker of alcohol (finding) [facility] Start: 1955 Sex Assigned At Not on file C [facility] Start: 11-02-2021 End: 05-16-2022 Exposure to SARS-CoV-2 (event) Not sure [facility] Start: 04-10-2023 End: 10-09-2023 Sex Assigned At Female [facility] Start: 05-16-2022 End: 04-10-2023 Cigarettes smoked current (pack per day) - Reported 1.5 [facility] Start: 05-16-2022 Tobacco use and exposure Smokeless tobacco non-user [facility] National Score (1-10 0), lower number is lower risk 87 [facility] Start: 12-12-2021 Gender identity Identifies as female gender (finding) [facility] Medical Equipment Procedure Code Equipment Code Equipment Origin al Text Equipment Identifier Dates Tyree hendrix 1.0g - [id number] Start: 12-24-2009 Goals Date Patient Goal Desired Activity /State Functional Status Date Assessment Result Facility 04-13-2024 Functional Status N/A [facility] 04-12-2024 Functional Status [facility] 03-17-2024 Functional Status N/A [facility] 06-24-2023 Functional Status N/A [facility] 11-26-2022 Functional Status N/A [facility] 07-23-2022 Functional Status N/A [facility] 01-15-2022 Functional Status N/A [facility] Clinical Notes 11-12-2021 to 04-13-2024 RadiologyElizabeth Hilliard MD - 04/03/2024 6:09 PM Paulina Garcia RN - 03/30/2024 11:30 AM Paulina Garcia RN - 03/30/2024 11:30 AM Macy Marroquin RN - 04/10/2023 9:45 AM EDTRadiology Note Date & Type Note Facility [...] Follow these instructions at home: Medicines Take qyhx-nhv-rcvrsso and prescription medicines only as told by [...] Kidney Foundation (NKF): www.kidney.org [facility] ([facility] www.urologyhealth.org Contact a health care provider if: [...] provider. Document Revised: 10/15/2022 Document Reviewed: 10/15/2022 [employer] Patient Education 2023 [place]. Follow Up Care 04/05/2024 10:57:54 With:Franklin FLOYD, BUDDY Garcia, URO Address: When: Unknown Comments:Jim menjivar [facility] 04-13-2024 Note Patient Education Urology Kidney Stones [...] these instructions at home: Medicines ? Take cztz-sqo-rwcnual and prescription medicines only as told by [...] diet. Follow r (more content not included)... [facility] 04-04-2024 Evaluation + Plan note Future Scheduled TestsXR Abdomen 1 View 04/04/24US Renal 04/04/24 [facility] 04-03-2024 Note HNO ID: [id number] Author: ELIZABETH HILLIARD MD Service: ? Author Type: Physician Type: Progress Notes Filed: 04/27/2024 21:37 Note Text: [facility] Name: Ruperto Saravia Date of Service: 03/30/24 Patient ID: 66 year old female w/ [...] routine botox injections. Doing well since last visit. She has return of her synkinesis of feeling of tightness in the left eye, left oral commisure, and left platysma. Exam: FACE Right facial paralysis with minimal voluntary movement and spontaneous spasm Significant asymmetry due to hyperdynamic function of all divisions of left facial nerve - Frontalis and orbicularis oculi, zygomaticus major, levator labii and behavior therapist Redemonstrated severe lateral pull of upper lip to left - related to midface muscles and hyperdynamic orbicularis williams - EYE -Downward pull due to platysma, mentalis, depressor right eye closure complete, weight in good position -Lower lid position good Procedure note: Injection facial botox Technique: 100u/1cc botox injected into: Left orbicularis oculi (3u, 2 sites) = 6 U Left lower pretarsal ( 2u, 2 site) = 4 U Left levator alaeque nasi (2u, 2site) = 4 U Left levator labii (1 site 3 unit(s)) = 3 U Lateral to philtrum (2u, 2 sites) = 4 U Left behavior therapist (3u, 2 site) = 6 U Left procerus (3u, 1 site) = 3 U Left mentalis (3u, 2 sites) 6 U Left platysma (3u, 14 x sites) = 42 units Left TAMRA (3u, 1 site) = 3 U Total: 81 units used (19 Units of botox discarded) Assessment: 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 Here today for botox injections and procedure was tolerated well. Plan: - Myectomy discussed, but patient is not interested at this time. - RTC in 3-4 months for repeat botox injections with either or Dr. José Hilliard MD [facility] Facial Plastic and Reconstructive Surgery ADDENDUM: I performed the procedure and discussed the patient's management with the fellow. I reviewed and edited the note and agree with the documented findings and treatment plan. Elizabeth Hilliard MD [facility] Neck Hat Finisher, Facial Plastic and Microvascular Surgery UNIVERSAL PROTOCOL / SAFETY CHECKLIST Procedure to be Performed: Facial botox Sign In: A Moment of CARE was completed. Personnel directly involved with the procedure wore the appropriate PPE (Personal Protective Equipment). Patient/Surrogate Stated/Verified: PATIENT VERIFIED(optional for EMERGENT procedures): Patient name, Date of , Relevant allergies, and The intended procedure Time Out Communication: Intended patient and procedure match the source documents. Consent documented and matches the intended procedure. No relevant labs, photos, and/or imaging studies were applicable for review. No correct side/site applicable for marking and visibility. Medications required for procedure verified. No fire risk assessment and interventions applicable. Sign Out: SIGN OUT (optional for EMERGENT procedures): No specimen collected. No instruments, equipment or retained foreign bodies applicable. Post-procedure follow-up management communicated and Plan of Care Visit completed when applicable. Elizabeth Hilliard MD [facility] 04-03-2024 History of Presen t illness Narrative [facility] Name: Ruperto Saravia Date of Service: 03/30/24 Patient ID: 66 year old female w/ [...] routine botox injections. Doing well since last visit. She has return of her synkinesis of feeling of tightness in the left eye, left oral commisure, and left platysma. Exam: FACE Right facial paralysis with minimal voluntary movement and spontaneous spasm Significant asymmetry due to hyperdynamic function of all divisions of left facial nerve - Frontalis and orbicularis oculi, zygomaticus major, levator labii and behavior therapist Redemonstrated severe lateral pull of upper lip to left - related to midface muscles and hyperdynamic orbicularis williams - EYE -Downward pull due to platysma, mentalis, depressor right eye closure complete, weight in good position -Lower lid position good Procedure note: Injection facial botox Technique: 100u/1cc botox injected into: Left orbicularis oculi (3u, 2 sites) = 6 U Left lower pretarsal ( 2u, 2 site) = 4 U Left levator alaeque nasi (2u, 2site) = 4 U Left levator labii (1 site 3 unit(s)) = 3 U Lateral to philtrum (2u, 2 sites) = 4 U Left behavior therapist (3u, 2 site) = 6 U Left procerus (3u, 1 site) = 3 U Left mentalis (3u, 2 sites) 6 U Left platysma (3u, 14 x sites) = 42 units Left TAMRA (3u, 1 site) = 3 U Total: 81 units used (19 Units of botox discarded) Assessment: 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 Here today for botox injections and procedure was tolerated well. Plan: - Myectomy discussed, but patient is not interested at this time. - RTC in 3-4 months for repeat botox injections with either me or Dr. José Hilliard MD [facility] and [facility] Re[facility]ive [facility] ADDENDUM: I performed the procedure and discussed the patient's management with the fellow. I reviewed and edited the note and agree with the documented findings and treatment plan. Elizabeth Hilliard MD [facility] Neck Hat Finisher, Facial Plastic and Microvascular Surgery UNIVERSAL PROTOCOL / SAFETY CHECKLIST Procedure to be Performed: Facial botox Sign In: A Moment of CARE was completed. Personnel directly involved with the procedure wore the appropriate PPE (Personal Protective Equipment). Patient/Surrogate Stated/Verified: PATIENT VERIFIED(optional for EMERGENT procedures): Patient name, Date of , Relevant allergies, and The intended procedure Time Out Communication: Intended patient and procedure match the source documents. Consent documented and matches the intended procedure. No relevant labs, photos, and/or imaging studies were applicable for review. No correct side/site applicable for marking and visibility. Medications required for procedure verified. No fire risk assessment and interventions applicable. Sign Out: SIGN OUT (optional for EMERGENT procedures): No specimen collected. No instruments, equipment or retained foreign bodies applicable. Post-procedure follow-up management communicated and Plan of Care Visit completed when applicable. Elizabeth Hilliard MD documented in this encounter [facility] 03-30-2024 Nurse Note Tobacco Use: 1.5 packs/day, for 18 years. Quit 07/20/1999. Types: Cigarettes Was smoking cessation packet given? N/A - Patient is a non-smoker or quit >1 year ago. Was a referral initiated?N/A Patient is a non-smoker. Paulina Jerez RN March 30, 2024 11:31 AM [facility] 03-30-2024 Nurse Note Tobacco Use: 1.5 packs/day, for 18 years. Quit 07/20/1999. Types: Cigarettes Was smoking cessation packet given? N/A - Patient is a non-smoker or quit >1 year ago. Was a referral initiated?N/A Patient is a non-smoker. Paulina Jerez RN March 30, 2024 11:31 AM documented in this encounter [facility] 03-17-2024 Hospital Discharg e instructions Patient Education 03/17/2024 13:15:00 Kidney Stones, Safo-fn-Fbul Kidney Stones Kidney stones are rock-like masses [...] Follow these instructions at home: Medicines Take feug-guv-xotvysl and prescription medicines only as told by [...] provider. Document Revised: 03/10/2022 Document Reviewed: 03/10/2022 [employer] Patient Education 2022 [employer] Follow Up Care 03/17/2024 09:52:31 With:Franklin FLOYD, BUDDY Garcia, URO Address: [address] [place] [address] [phone] When: Unknown [facility] Note Patient Education Urology Kidney Stones [...] these instructions at home: Medicines ? Take bmfm-dhc-rkcyhoc and prescription medicines only as told by [...] provider. Document Revised: 03/10/2022 Document Reviewed: 03/10/2022 [employer] Patient Education ? 2022 [employer]lett[employer]. [facility] 10-09-2023 Note HNO ID: [id number] Author: ADINA ROSALES MD Service: ? Author Type: Physician Type: Progress Notes Filed: 10/18/2023 16:43 Note Text: [facility] Facial Plastic and Reconstructive Surgery Name: Ruperto [...] orbicularis oculi, zygomaticus major, levator labii and behavior therapist - Severe lateral pull of upper lip [...] units 1 site) = 2 U Left behavior therapist (3u, 2 site) = 6 U Left procerus (3u, 1 site) = 3 U Left mentalis (2u, 3 sites) 6 U Left platysma (3u, 18 x sites) = 54 units Right TAMRA (3U 1 site)=3U Right behavior therapist (2U, 2 sites) = 4U Right lateral orbicularis infrabrow= 2U, 1 site=2U Right platysma (3U h8wiccr) = 9 U Total: 120 units used [...] MD Facial Plastic and Reconstructive Surgery Fellow [facility], [facility] 06-24-2023 Hospital Discharg e instructions Patient Education [...] include: ?8 oz (237 mL) of milk, tzyngrx-gaxzyqtznbuh-fgdbp milk, and calcium-fortifiedfruit juice. Calcium-fortified means that [...] ?Spinach (cooked), rhubarb, beets, sweet potatoes, and Afghan chard. ?Peanuts. ?Potato chips, georgian fries, and baked potatoes with skin on. ?Nuts and nut products. ?Chocolate. If you regularly take a diuretic medicine, make sure to eat at least 1 or 2 servings of fruits or vegetables that are high in potassium each day. These include: ?Avocado. ?Banana. ?Gates, prune, carrot, or tomato juice. ?Baked potato. [...] magnesium, fish oil, or vitamin B6. Take gevt-dcz-pvkzows and prescription medicines only as told by [...] Casseroles. Pizza. Lasagna. Frozen meals. Potato chips. Algerian fries. The items listed above may not [...] provider. Document Revised: 10/16/2022 Document Reviewed: 10/16/2022 [employer] Patient Education 2022 [employer]. Follow Up Care 11/26/2022 08:11:41 With:Franklin FLOYD, BUDDY Garcia, URO Address: [address] [place] [phone] When: Unknown Comments:6 mos w/ CONCETTA and CEASAR [facility] 04-10-2023 Nurse Note Tobacco Use: 1.5 packs/day, for 18 years. Quit 07/20/1999. Types: Cigarettes Was smoking cessation packet given? N/A - Patient is a non-smoker or quit >1 year ago. Was a referral initiated?N/A Patient is a non-smoker documented in this encounter [facility] 04-10-2023 History of Presen t illness Narrative [facility] Facial Plastic and Reconstructive Surgery Name: Ruperto [...] orbicularis oculi, zygomaticus major, levator labii and behavior therapist - Severe lateral pull of upper lip [...] (2u, 4 sites) = 8 U Left behavior therapist (3u, 2 site) = 6 U Left [...] MD Facial Plastic and Reconstructive Surgery Fellow [facility], [facility] documented in this encounter [facility] 11-26-2022 Hospital Discharg e instructions Patient Education [...] include: ?8 oz (237 mL) of milk, xxarbyw-ksiotwhtnqsu-aaopt milk, and calcium-fortifiedfruit juice. Calcium-fortified means that [...] ?Spinach (cooked), rhubarb, beets, sweet potatoes, and Afghan chard. ?Peanuts. ?Potato chips, georgian fries, and baked potatoes with skin on. ?Nuts and nut products. ?Chocolate. If you regularly take a diuretic medicine, make sure to eat at least 1 or 2 servings of fruits or vegetables that are high in potassium each day. These include: ?Avocado. ?Banana. ?Gates, prune, carrot, or tomato juice. ?Baked potato. [...] magnesium, fish oil, or vitamin B6. Take zibw-uly-kqfwhvk and prescription medicines only as told by [...] Casseroles. Pizza. Lasagna. Frozen meals. Potato chips. Algerian fries. The items listed above may not [...] provider. Document Revised: 03/17/2022 Document Reviewed: 03/17/2022 [employer] Patient Education 2022 Arlettie. Follow Up Care 07/23/2022 11:38:48 With:Franklin FLOYD, BUDDY Garcia, URO Address: When: Unknown [facility] 07-23-2022 Hospital Discharg e instructions Patient Education 07/23/2022 11:37:41 Kidney Stones, Kxaa-zd-Blfd Kidney Stones Kidney stones are rock-like masses [...] Follow these instructions at home: Medicines Take qlbh-vlk-zlbdqam and prescription medicines only as told by [...] 12/22/2008 Document Revised: 11/22/2019 Document Reviewed: 11/22/2019 [employer] Patient Education 2020 [employer] Follow Up Care 01/15/2022 10:50:51 With:Franklin FLOYD, Lexi Regalado, URL, URO Address: [address] [place] [phone] When:Within 3 Month(s) Comments:sched CT AP w/o [facility] 05-16-2022 History of Presen t illness Narrative Botox 50U with 0.5ml NaCl Lot [id number] Exp 11/2024 [facility] Re[facility]ive [facility] Name: Ruperto [...] orbicularis oculi, zygomaticus major, levator labii and behavior therapist -Severe lateral pull of upper lip to [...] (2u, 4 site) = 8 u Left behavior therapist (3u, 2 site) = 6 U Left [...] for repeat botox injections Elizabeth Hilliard MD [facility], Facial Plastic and Microvascular Surgery By signing my name below, I, Adrian Sepulveda, attest that this documentation has been prepared under the direction and in the presence of Dr. Elizabeth Hilliard. Electronically signed, Lita Middleton May 16, 2022 2:59 PM I have reviewed and edited above documentation and it accurately reflects assessment, work and decisions made by me. Elizabeth Hilliard MD [facility], Facial Plastic and Microvascular Surgery UNIVERSAL PROTOCOL [...] Elizabeth Hilliard MD documented in this encounter [facility] 05-16-2022 Nurse Note Tobacco Use: 1.5 packs/day, for 18 years. Quit 07/20/1999. Types: Cigarettes Was smoking cessation packet given? N/A - Patient is a non-smoker or quit >1 year ago. Was a referral initiated?N/A Patient is a non-smoker documented in this encounter [facility] 01-15-2022 Hospital Discharg e instructions Patient Education 01/15/2022 10:39:00 Kidney Stones, Oomi-uk-Voir Kidney Stones Kidney stones are rock-like masses [...] Follow these instructions at home: Medicines Take ltoq-ijt-rmuyquu and prescription medicines only as told by [...] 12/22/2008 Document Revised: 11/22/2019 Document Reviewed: 11/22/2019 [employer] Patient Education 2020 Arlettie. Follow Up Care 09/18/2021 11:24:57 With:Franklin FLOYD, BUDDY Garcia, URO Address: [facility] [place] [place] [address]- [phone] When:07/17/2022 Comments:CONCETTA MCDONOUGH [facility] 12-25-2021 Note PROCEDURE: XR FOOT R T MIN 3 VIEWS COMPARISON: 02/06/2021 HISTORY: Pain in right foot FINDINGS: BONES:No acute fracture or dislocation. Moderate enthesopathic spurring of the calcaneus. Stable corticated calcific density lateral to the cuboid SOFT TISSUES:Negative. No visible soft tissue swelling. EFFUSION:None visible. OTHER: Negative. IMPRESSION: No acute fracture Electronically authenticated by: ARMANDO HOLLINGSWORTH Date: 2021-12-25 16:49 [facility] 12-13-2021 History of Presen t illness Narrative [facility] Facial Plastic and Reconstructive Surgery Name: Ruperto [...] orbicularis oculi, zygomaticus major, levator labii and behavior therapist severe lateral pull of upper lip to [...] (2u, 2 sites) = 4 U left behavior therapist (3u, 2 site) = 6 U left [...] decisions made by me. Elizabeth Hilliard MD [facility], Facial Plastic and Microvascular Surgery Procedure: Botox Injections Informed Consent Consent Obtained: Written Surrency Protocol A moment to CARE was completed [...] completed when applicable documented in this encounter [facility] 11-19-2021 Miscellaneous Notes Notified pt of message, [...] 1.7 ng/dL 1.0 documented in this encounter [facility] 11-12-2021 History of Presen t illness Narrative [...] Card MD, PhD documented in this encounter [facility] Evaluation + Plan note Future Appointments Appointment Date:07/23/2022 10:00:00 AM Scheduled Provider:Franklin FLOYD, Lexi Regalado Location:[facility] Appointment Type:URO Office Visit [facility] Evaluation + Plan note Future Appointments Appointment Date:10/29/2022 10:15:00 AM Scheduled Provider:Lexi Reid MD Location:[facility] Appointment Type:URO Office Visit [facility] Evaluation + Plan note Future Appointments Appointment Date:06/24/2023 08:00:00 AM Scheduled Provider:Lexi Reid MD Location:[facility] Appointment Type:URO Office Visit [facility] Evaluation + Plan note Future Appointments Appointment Date:01/06/2024 09:00:00 AM Scheduled Provider:Lexi Reid MD Location:[facility] Appointment Type:URO Office Visit [facility] Evaluation + Plan note Future Appointments Appointment Date:04/06/2024 11:00:00 AM Scheduled Provider:Lexi Reid MD Location:[facility] Appointment Type:URO Office Visit [facility] Evaluation + Plan note Future Appointments Appointment Date:04/12/2024 12:40:00 PM Scheduled Provider:ANN SHANKAR PA-C Location:[facility] Appointment Type:URO Office Visit Future Scheduled TestsXR Abdomen 1 View 04/04/24US Renal 04/04/24 [facility] Evaluation note No Assessments Infor [facility] Evaluation note Diagnosis Multiple thyroid nodules- Primary Nontoxic multinodular goiter Obesity, Class I, BMI 30-34.9 Obesity, unspecified Vasomotor symptoms due to menopause [facility]* Diagnosis 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 Facial nerve disorder, unspecified [facility] Narrative No data available for this section [facility] Hospital Discharge instructions No data available for this section [facility] Progress note No data available for this section [facility] Advance Directives Advance Directive Response Recorded Date/ Time Advance Directives No May 2:55pm Documents on File Type Date Recorded 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 Advance Directive(s) 06/24/2019 7:51 AM Advance Directive(s) 06/01/2018 7:17 AM Advance Directive(s) 05/27/2018 1:38 PM Advance Directive(s) 12/12/2009 8:53 PM Documents on File Type Date Recorded 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 Advance Directive(s) 06/24/2019 7:51 AM Advance Directive(s) 06/01/2018 7:17 AM Advance Directive(s) 05/27/2018 1:38 PM Advance Directive(s) 12/12/2009 8:53 PM Documents on File Type Date Recorded 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 Advance Directive(s) 12/12/2009 8:53 PM Advance Directive Response Recorded Date/ Time Advance Directives No May 1:55pm Chief Complaint and Reason for Visit Chief Complaint Screening Chief Complaint Q27.30 R44.1 Reason for Referral Specialty Diagnoses / Procedures Referred By Alisson t Referred To Contact Diagnoses Vasomotor symptoms due to menopause Procedures CONSULT TO WOMEN'S HEALTH OFFICE/OUTPATIENT [facility] 60-74 MINUTES Shawna Card MD, PhD [address] [place] [address] Vicki Kiser MD [address] [place] [address] Referral ID Status Reason Start Date Expiration Date Visits Requested Visits Authorized [id number] Authorized PCP Requested Referral Auto-Generate d Referral [...] or prosecute any alcohol or drug abuse patient.[facility] the event this information is protected by the Federal Confidentiality of Alcohol and Drug Abuse Patient Records regulations: The Federal rules restrict any use of the information to criminally investigate or prosecute any alcohol or drug abuse patient.[facility] the event this information is protected by the Federal Confidentiality of Alcohol and Drug Abuse Patient Records regulations: The Federal rules restrict any use of the information to criminally investigate or prosecute any alcohol or drug abuse patient.[facility] the event this information is protected by the Federal Confidentiality of Alcohol and Drug Abuse Patient Records regulations: The Federal rules restrict any use of the information to criminally investigate or prosecute any alcohol or drug abuse patient.[facility] the event this information is protected by the Federal Confidentiality of Alcohol and Drug Abuse Patient Records regulations: The Federal rules restrict any use of the information to criminally investigate or prosecute any alcohol or drug abuse patient.[facility] the event this information is protected by the Federal Confidentiality of Alcohol and Drug Abuse Patient Records regulations: The Federal rules restrict any use of the information to criminally investigate or prosecute any alcohol or drug abuse patient.[facility] the event this information is protected by the Federal Confidentiality of Alcohol and Drug Abuse Patient Records regulations: The Federal rules restrict any use of the information to criminally investigate or prosecute any alcohol or drug abuse patient.[facility] Reason for Visit (unrecogniz ed section and content) Reason Comments Procedure Specialty Diagnoses / Procedures Referred By Contac t Referred To Contact ENT-OTOLARYNGOLOGY 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 Renewal medical botox Procedures CHEMODNRVTJ [facility] INNERVATED FACIAL NRV UNIL BOTULINUM TOXIN A PER 1 UNIT Med botox 100 units every 3-4 months for 1 year Elizabeth Hilliard MD [address] [facility] [place] [address] Elizabeth Hilliard MD [address] [place] [address] Referral ID Status Reason Start Date Expiration Date V isits Requested Visits Authorized [id number] Authorized 04/01/2023 07/19/2024 99 99 Reason Comments Facial nerve spasm Facial nerve spasm, Botox Specialty Diagnoses / Procedures Referred By Contact Referred To Contact Ent - Otolaryngology / ENT-FACIAL PLASTICS Diagnoses 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, unspecified Alcala's palsy Repeat medical botox injections Procedures BOTULINUM TOXIN A PER 1 UNIT [facility]NRVTJ [facility] INNERVATED FACIAL NRV UNIL RENEWAL REQUEST INJECTABLE (100 UNITS EVERY 3-4 MONTHS FOR 1 YR[place] [address] [place] [address] Elizabeth Hilliard MD [address] [place] [address] Referral ID Status Reason Start Date Expiration Date V isits Requested Visits Authorized [id number] Authorized 12/13/2021 10/24/2022 99 99 Reason Comments Thyroid Problem Reason Comments Results Reason Comments Botox Injection Referral ID Status Reason Start Date Expiration Date V isits Requested Visits Authorized [id number] Pending Review 12/13/2021 12/12/2022 4 4 Reason Comments Follow Up Botox Specialty Diagnoses / Procedures Referred By Contac t Referred To Contact ENT-OTOLARYNGOLOGY 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 Renewal medical botox Procedures [facility] NRV UNIL BOTULINUM TOXIN A PER 1 UNIT Med botox 100 units every 3-4 months for 1 year Elizabeth Hilliard MD [address] [place] [address] Elizabeth Hilliard MD [address] [place] [address] Referral ID Status Reason Start Date Expiration Date V isits Requested Visits Authorized [id number] Authorized 04/01/2023 03/31/2024 99 99 Reason Comments Procedure Referral ID Status Reason Start Date Expiration Date V isits Requested Visits Authorized [id number] Authorized 04/01/2023 07/19/2024 99 99 Care Teams (unrecognized sec tion and content) Pattern Duplicator Relationship Specialty Start Date End Date Gerson Gonzalez Jr. [address] [place] [address] [address] [place] [address] PCP - General 08/24/01 Pattern Duplicator Relationship Specialty Start Date End Date Gerson Gonzalez Jr. [facility] [address] [place] [address] PCP - General 08/24/01 Pattern Duplicator Relationship Specialty Start Date End Date Gerson Gonzalez Jr. [address] [facility] [address] [place] [address] PCP - General 08/24/01 Pattern Duplicator Relationship Specialty Start Date End Date Gerson Gonzalze Jr. [address] [facility] [address] [place] [address] PCP - General 08/24/01 Pattern Duplicator Relationship Specialty Start Date End Date Gerson Gonzalez Jr. [address] [facility] [address] [place] [address] PCP - General 08/24/01 Pattern Duplicator Relationship Specialty Start Date End Date Gerson Gonzalez Jr. [address] [facility] [address] [place] [address] PCP - General 08/24/01 Team Status: Active [...] November 03, 2023 End: November 03, 2023 Pattern Duplicator Relationship Specialty Start Date End Date Gerson Gonzalez Jr. DO [address] [place] [address] PCP - General 08/24/01 INFORMATION SOURCE (unrecogn ized section and content) DATE CREATED AUTHOR 11/15/2022 [facility] DATE CREATED AUTHOR AUTHOR'S ORGANIZ ATION 02/28/2024 [facility] EPIC DATE CREATED AUTHOR AUTHOR'S ORGANIZ ATION 04/14/2024 Wei Cain [facility] DATE CREATED AUTHOR AUTHOR'S ORGANIZ ATION 04/30/2024 [facility] DATE CREATED AUTHOR AUTHOR'S ORGANIZ ATION 04/30/[address] [facility] ys[facility] Goals (unrecognized section and content) Goals may [...] BE BASED ON THE PRIMARY CLINICAL RECORDS. [employer] provides no warranty or guarantee of the accuracy or completeness of information in this document.
[2024-05-03] MEDS: REGADENOSON 0.4 MG/5 ML SYRINGE IV (09:05)
--- NOTE | 2024-05-03 09:05 | PC.NURSE ---
Nursing Note Cardiac Stress Test Reviewed: Medication, allergies and patient history reviewed. Stress Test: [ x] Patient tolerated stress test well. [ ] Patient unable to tolerate walking on treadmill. Switched to Lexiscan stress test. [x ] No chest pain noted per patient [ ] Chest pain that resolved prior to leaving stress lab. [x ] No dyspnea noted. [ ] Dyspnea that resolved prior to leaving stress lab. [x ] Patient left stress lab asymptomatic and hemodynamically stable. [ ] Patient taken to the Emergency Room due to non-resolving symptoms following stress test. [ ] Patient achieved target heart rate. [ ] Patient unable to achieve target heart rate. [ ] Aminophylline administered as reversal agent to Lexiscan (Regadenoson). [ ] Nitro administered. Nursing Comments:
--- NOTE | 2024-05-03 14:17 | PM.STRESS ---
Stress Test Stress Test Allergies Allergy/AdvReac Type Severity Reaction Status Date / Time No Known Drug Allergies Allergy Verified 04/27/24 10:16 Requesting physician: ASYA CLEMENTS Procedure: Lexiscan Cardiolite stress test General Information: Reason for Stress Test: Dyspnea, abnormal EKG Cardiac History and Risk Factors: History of stroke, former smoker. Grandparent had cardiac disease. Resting 12 - Lead Electrocardiogram: Rate & rhythm: Normal sinus at a rate of 63. [place]: Normal T-waves: Inverted T-waves in the inferolateral leads ST-segments: Normal orientation Abnormal EKG 04/27/2024: T-wave inversions are present in the inferior leads, but normal orientation in the lateral leads Stress Test: Protocol: Lexiscan protocol was initiated with injection of 0.4mg Lexiscan IV push followed by Cardiolite. Blood pressure: Initial: 120/70, Maximum: 124/72 Rate & rhythm: Patient remained in sinus rhythm during the exercise and recovery portions of the study.? The maximum heart rate was 82, which was 53% of the maximum predicted heart rate. ST-segments & T-waves: There were no T-wave changes and no ST-segment changes when compared to the baseline EKG. Patient response/symptoms: There were no symptoms similar to the chief complaint. Interpretation: Normal Lexiscan stress test without electrocardiographical evidence of ischemia. Patient was asymptomatic regarding chief complaint. Cardiolite imaging interpretation will be reported separately. Clinical correlation required.
== END 2024-05-03 07:32 | disposition home or self-care (01) ==
PROVIDERS: PCP Internal Medicine; Visit Provider Internal Medicine
DX: R94.31 Abnormal electrocardiogram [ECG] [EKG] (principal)
CPT/HCPCS: 78452; 93017; A9500; J2785

== ENCOUNTER 2024-05-20 12:31 | Outpatient (OUT) | payer MEDICARE, OTHER, SELFPAY ==
--- NOTE | 2024-05-20 12:33 | CT_ITS ---
[address] [address] Patient Name: RUPERTO SARAVIA MRN: [id number] date: 1955 Sex: F Assigned Patient Location: CT Current Patient Location: Accession/Order Number: [id number] Exam Date: 05/20/2024 12:40 Report Date: 05/21/2024 07:31 At the request of: CARLOS SHANKAR Procedure: CT abdomen pelvis wo con EXAMINATION: CT abdomen pelvis wo con HISTORY: Flank pain R10.9, Ureteral stone with hydronephrosis N13.2 COMPARISON: CT abdomen pelvis 03/17/2024, 06/02/2017 TECHNIQUE: Axial, Coronal, and Sagittal images were obtained without and/or with IV contrast as indicated by examination type. Dose reduction techniques were achieved by using automated exposure control and/or adjustment of mA and/or kV according to patient size and/or use of iterative reconstruction technique. FINDINGS: LUNG BASES: No visible pulmonary or pleural disease. LIVER: No enlargement, atrophy, suspicious density, or significant focal lesion. BILIARY: No dilatation or calcification. PANCREAS: Stable, chronic pseudocyst within body of pancreas. No lesion, fluid collection, or abnormal duct dilatation. SPLEEN: No enlargement or focal lesion. ADRENALS: No mass or enlargement. KIDNEYS: Marked right hydronephrosis and hydroureter secondary to an obstructing 8 x 6 x 5 mm stone within the distal ureter, 8 cm from the ureterovesical junction. A few small nonobstructing stones within the right kidney. Unremarkable left kidney and ureter. BOWEL/MESENTERY: No visible mass, obstruction, or bowel wall thickening. AORTA/VASCULAR: No aneurysm or dissection. RETROPERITONEUM: No mass or adenopathy. LYMPH NODES: No adenopathy. URINARY BLADDER: No visible focal wall thickening, lesion, or calculus. PELVIC ORGANS: No visible mass. Pelvic organs appropriate for patient age. ABDOMINAL WALL: Tiny fat filled umbilical hernia. BONES: No bony lesion or fracture. OTHER: Negative. CT/CT abdomen pelvis wo con IMPRESSION: 1. Marked right hydronephrosis and hydroureter secondary to an obstructing 8 x 6 x 5 mm stone within the distal ureter. No appreciable change or progression of the ureteral stone compared to 03/17/2024. 2. Additional nonobstructing small stones within right kidney. Electronically authenticated by: RAFAEL WARE Date: 05/21/2024 07:31
--- OUTSIDE RECORDS SUMMARY | 2024-05-20 12:54 | XMS_ITS | CCD ---
Author Organization [facility] CliniSypr Care Team Providers Care Window Systems Administrator Name Role Phone Gerson Clements Primary Care Provider [phone] Self, Referral Attending Provider Unavailable Lisa Carson, Gerson Loja Primary Care Provider GERSON CLEMENTS JR Primary Care Physician Lisa Carson, Gerson Loja Primary Care Provider Gerson Clements Jr. Primary Care Provider DARRICK, DR ARMANDO Melo Consulting Unavailable VALONE, DR SKY Primary Care Unavailable LEXI DIETZ Admitting Unavailable LEXI DIETZ Attending Unavailable FRANKLIN .LEXI Consulting Unavailable VALONE, DR SKY Primary Care [...] Unavailable JARAD BENAVIDES Consulting Unavailable JR Gerson Celments Primary Care Provider [phone] CARLOS Wade Attending Provider JR Gerson Clements Primary Care Provider CARLOS Wade Attending Provider GERSON CLEMENTS JR Primary Care Unavail able ELIZABETH BALBUENA Referring Unavailable ELIZABETH BALBUENA Attending Unavailable GERSON CLEMENTS JR Primary Care Unavail able ADINA HINOJOSA Attending Unavailable Gerson Clements Primary Care Unavailable Shasta Wade Attending Unavailable Shasta Wade Admitting Unavailable Lisa Carson, Gerson MIGUEL Primary Care Provi heladio Gerson Clements MD Primary Care Provider [phone] MICHAEL CRUZ Attending Unavailable SHASTA WADE Attending Unavailable SHASTA WADE Referring Unavailable MAURO, SHASTA Attending Unavailable GABRIEL BEYER Attending Unavailable MICHAEL CRUZ Attending Unavailable MAURO, SHASTA Attending Unavailable MAURO, SHASTA Attending Unavailable Lexi Reid Attending Unavailable Lexi Reid Attending Unavailable Lexi Reid Attending Unavailable Lexi Reid Attending Unavailable ANN FORTE Attending Unavailable ANN FORTE Attending Unavailable Lexi Reid Attending Unavailable Allergies Allergy Classification Reported Allergen(s) Allergy Type Date of Onset Reaction(s) Facility (8 sources) Seasonal allergy; Translations: [SEASONAL ALLERGIES] Propensity to adverse reactions 0 Itching [facility] (1 source) Unable to Assess Drug allergy (disorder) 4 [facility] Repository (3 sources) Other Propensity to adverse reactions 0 Itching [facility] Work Phone: Medications Current Medications Medication Drug Class(es) Dates Sig (Normalized) Sig (Original) Ascorbic Acid (7 sources) Vitamin C ASCORBIC ACID (V ITAMIN C ORAL) Take by mouth. Active ASCORBIC ACID (V ITAMIN C ORAL) Take by mouth. 0 Active Comment on above: Take by mouth. ascorbic acid (Vitamin C) 500 mg/mL oral liquid (3 sources) ascorbic acid (V itamin C) 500 mg/mL oral liquid Take by mouth Daily Active cholecalciferol 0.05 mg oral capsule (10 sources) Vitamin D Start: 06-01-2008 CHOLECALCIFEROL (VITAMIN D3) 2,000 UNIT CAP Take one(1) tablet daily. 0 06/01/2008 Active take 1 tablet by mouth in the mo rning cholecalciferol (Vitamin D-3) 25 MCG (1000 UT) tablet Take 1,000 Units by mouth in the morning. Active Comment on above: Take one(1) tablet d aily. clonazePAM 0.5 mg oral tablet (3 sources) Benzodiazepine Start: 07-23-2022 ClonazePAM 0.5 mg Tab Refills(s) 0 Start Date: 07/23/22 Status: Ordered End: 11-12-2021 clonazePAM (KLONOPIN) 0.5 mg tablet three times daily as needed. 0 11/12/2021 Discontinued (Course of therapy completed) Comment on above: three times daily as needed. ezetimibe 10 mg oral tablet (19 sources) Dietary Cholesterol Absorption Inhibitor Start: 10-03-2021 take 1 tablet by mouth in the morning ezetimibe (Zetia) 10 MG tablet Take 10 mg by mouth in the morning. 09/27/2022 Active Start: 07-24-2021 take 1 mg by mouth once daily ezetimibe mg, Oral, Daily Start Date: 07/24/21 Status: Ordered Comment on above: Take 10 mg by mouth once daily. FLUoxetine 20 mg oral capsule (18 sources) Serotonin Reuptake Inhibitor Start: 11-26-2022 take [...] day levothyroxine sodium 0.025 mg oral tablet (9 sources) l-Thyroxine Start: 06-24-2023 levothyroxine 25 mcg (0.025 mg) Tab Refills(s) 0 Start Date: 12/6/23 Status: Ordered Start: 03-27-2023 take 1 tablet by ramírez th before mealtime levothyroxine (Synthroid, Levoxyl) 25 MCG tablet Take 25 mcg by mouth in the morning. Take before meals. 03/27/2023 Active MAGNESIUM BISGLYCINATE PO (3 sources) MAGNESIUM BISGLY CINATE PO Take 300 mg by mouth Active Magnesium Oxide-Mg Amino Aci d Chelate 300 mg cap (4 sources) take 1 capsule by mo uth once daily at bedtime Magnesium Oxide-Mg Amino Acid Chelate 300 mg cap Take 300 mg by mouth daily at bedtime. Active take 1 capsule by mo uth once daily at bedtime Magnesium Oxide-Mg Amino Acid Chelate 30 0 mg cap Take 300 mg by mouth daily at bedtime. 0 Active Comment on above: Take 300 mg by mouth daily at bedtime. modafinil 200 mg oral tablet (3 sources) Sympathomimetic-l nae Agent Start: 3 modafinil (Provigil) 200 MG tablet 01/01/2023 Active Multiple Vitamins-Minerals (PRESERVISION AREDS 2 PO) (3 sources) Multiple Vitamins-Minerals (PRESERVISION AREDS 2 PO) Take by mouth Active propranolol hydrochloride 60 mg oral tablet (19 sources) beta-Adrenergic Vamshi Start: 3 take 1 tablet by mouth once daily in the morning, then take 2 tablets by mouth once daily in the evening propranolol (Inderal) 60 MG tablet TAKE 1 TABLET BY MOUTH EVERY DAY IN THE MORNING AND TAKE 2 TABLETS BY MOUTH EVERY DAY IN THE EVENING 12/28/2022 Active Start: 07-24-2021 propranolol 20 mg Tab 20 mg = 1 tab(s), Oral, As Directed Start Date: 07/24/21 Status: Ordered Comment on above: as needed. tamsulosin hydrochloride 0.4 mg oral capsule (5 sources) alpha-Adrenergic Vamshi Start: 03-17-2024 take 1 capsule by mouth once daily tamsulosin 0.4 mg Cap 0.4 mg = 1 cap(s), Oral, Daily, # 30 cap(s), Refills(s) 0, Pharmacy: [facility]/pharmacy #[id number], 175, cm, 03/17/24 12:54:00 EDT, Height/Length Dosing, 95, kg, 03/17/24 12:54:00 EDT, Weight Dosing Start Date: 03/17/24 Status: Ordered Vitamin B Complex (7 sources) Start: 08-03-2018 take 1 tablet by mouth once daily [...] Problem Date Documented Date Episodic/Chronic Abdominal pain (14 sources) Abdominal pain; Translations: [Unspecified abdominal pain] Onset: 01-15-2022 Episodic Acute cerebrovascular disease (3 sources) Cerebrovascular accident; Translations: [Cerebral infarction, unspecified] Onset: 05-26-2017 11-12-2023 Chronic Anxiety disorders (20 sources) Anxiety state; Translations: [Generalized anxiety disorder] Onset: 11-12-2023 06-01-2008 Chronic Blindness and vision defects (5 sources) Visual impairment Onset: 07-20-2008 03-17-2024 Chronic Comment on above: Outside Source Comme nt: Overview: 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 Calculus of urinary tract (19 sources) Kidney stone; Translations: [Calculus of kidney] Onset: 01-15-2022 Episodic Cardiac and circulatory congenital anomalies (12 sources) Congenital anomaly of cerebrovascular system; Translations: [Other malformations of cerebral vessels] Onset: 07-17-2005 04-01-2018 Chronic Disorders of lipid metabolism (9 sources) Hyperlipidemia 07-24-2021 Chronic Genitourinary symptoms and ill-defined conditions (11 sources) Stress incontinence (female) (male); Translations: [Genuine stress incontinence] Onset: 11-26-2022 Chronic Genitourinary symptoms and ill-defined conditions (10 sources) Hypercalciuria; Translations: [Hypercalciuria] Onset: 01-15-2022 Episodic Headache; including migraine (8 sources) Migraine; Translations: [Migraine, unspecified, not intractable, without status migrainosus] Onset: 05-26-2017 11-12-2023 Chronic Headache; including migraine (9 sources) Headache 07-24-2021 Episodic Menopausal disorders (8 sources) Menopausal syndrome; Translations: [Menopausal and female climacteric states] Onset: 11-12-2021 Chronic Osteoarthritis (13 sources) Arthritis; Translations: [Primary osteoarthritis, right ankle and foot] Onset: 02-27-2022 07-24-2021 Chronic Other circulatory disease (2 sources) History of cerebrovascular accident; Translations: [Personal history of transient ischemic attack (TIA), and cerebral infarction without residual deficits] 05-16-2024 Episodic Other connective tissue disease (9 sources) Neuralgia 07-24-2021 Episodic Other diseases of kidney and ureters (3 sources) Acquired renal cyst without neoplastic change; Translations: [Cyst of kidney, acquired] Onset: 06-24-2023 Episodic Other diseases of kidney and ureters (6 sources) Simple renal cyst 06-24-2023 Episodic Other diseases of kidney and ureters (3 sources) Hydronephrosis; Translations: [Unspecified hydronephrosis] Onset: 03-17-2024 Episodic Other diseases of kidney and ureters (2 sources) Urinary tract obstruction; Translations: [Hydronephrosis with renal and ureteral calculous obstruction] Onset: 04-13-2024 Episodic Other ear and sense organ disorders (5 sources) Hearing loss Onset: 07-20-2009 03-17-2024 Chronic Comment on above: Outside Source Comme nt: Overview: 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] Onset: 12-21-2013 12-21-2013 Chronic Other eye disorders (9 sources) Nystagmus 07-24-2021 Chronic Other hereditary and degenerative nervous system conditions (7 sources) Myoclonus; Translations: [Myoclonus] 06-01-2008 Chronic Other nervous system disorders (1 source) Facial spasm; 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, unspecified] Episodic Other nervous system disorders (3 sources) Facial nerve motor disorder; Translations: [Other disorders of facial nerve] Episodic Other nervous system disorders (2 sources) Facial palsy; 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] 04-10-2023 Episodic Other nervous system disorders (5 sources) Trigeminal neuralgia; Translations: [Trigeminal neuralgia] Onset: 10-20-2014 11-12-2023 Episodic Other nutritional; endocrine; and metabolic disorders (8 sources) Obese class I; Translations: [Obesity, unspecified] Onset: 11-12-2021 Chronic Other nutritional; endocrine; and metabolic disorders (9 sources) Body mass index 30+ - obesity 09-18-2021 Chronic Residual codes; unclassified (2 sources) Hypnapompic hallucinations; Translations: [Other hallucinations] 05-16-2024 Episodic Spondylosis; intervertebral disc disorders; other back problems (6 sources) Degeneration of lumbar intervertebral disc; Translations: [Degenerative disc disease, lumbar] Onset: 02-08-2010 11-12-2023 Chronic Thyroid disorders (17 sources) Multinodular goiter; Translations: [Nontoxic multinodular goiter] Onset: 11-12-2021 Chronic Unclassified (3 sources) Obstructive hydronephrosis 04-13-2024 Past or Other Problems Problem Classification Problem Date Documented Date Episodic/Chronic Blindness and vision defects (4 sources) Visual hallucinations; Translations: [Visual hallucinations] Onset: 4 11-12-2023 Episodic Conditions associated with dizziness or vertigo (3 sources) Dizziness; Translations: [Dizziness and giddiness] Onset: 9 11-12-2023 Episodic Disorders of teeth and jaw (7 sources) Articular disc disorder of temporomandibular joint; Translations: [Articular disc disorder of temporomandibular joint, unspecified side] Onset: 0 04-24-2010 Episodic Fracture of upper limb (6 sources) Closed fracture of distal end of radius; Translations: [Unspecified fracture of the lower end of left radius, subsequent encounter for closed fracture with routine healing] Onset: 3 02-24-2023 Episodic Other bone disease and musculoskeletal deformities [...] nerve disorder, unspecified] Onset: 9 06-05-2009 Episodic Other nervous system disorders (3 sources) Alcala's palsy; 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] Onset: 9 11-12-2023 Episodic Other non-traumatic joint disorders (3 sources) Pain of left wrist; Translations: [Pain in left wrist] Onset: 3 02-24-2023 Episodic Residual codes; unclassified (4 sources) Asymptomatic menopausal state; Translations: [ASYMPTOMATIC MENOPAUSAL STATE] Onset: 2 Episodic Spondylosis; intervertebral disc disorders; other back problems (6 sources) Neck pain; Translations: [Cervicalgia] Onset: 9 11-12-2023 Episodic Results Test Name Value Interpretation Reference Range Facility Urology Office/Clinic Noteon 05-17-2024 Urology Office/Clinic Note Urology Office/Clinic Note Chief Complaint flank pain HPI Staff 68yr old female pt here to discuss flank pain issues. Pt has had right sided flank pain x3 days. Also says she has a kidney stone stuck on her right side. She was supposed to have surgery to remove stone with Dr. Reid last week. But during pre-surgical testing, she had an abnormal EKG. She now has to see cardiology on 05/27/24 for approval to go forward with surgery. Pt is worried there might be a problem with the kidney stone. Also has had swelling on hands and face x3 days. Previous Dx: ureteral stone w/ hydronephrosis, kidney stone, stress incontinence, flank pain, simple renal cyst Dysuria: denies Incomplete bladder emptying: denies Hematuria: denies Frequency: urinates 6-8x per day Urgency: denies Nocturia: about 2x per night Stream: feels like stream has gotten weaker, says she feels like it might be weaker or slower than normal Leaking: denies Post void dripping: denies Wearing pads/ Depends: denies Urge incontinence: denies Stress incontinence: denies Incontinence without Sensory Awareness: denies Abdominal pain: denies Flank pain: right sided dull pain for 3 days, which has improved Sexual complaints: denies Review of Systems PHQ Score Initial Depression Screen Score: 2 SCORE no fever, chills, malaise, myalgia. no rash/lesions. no chest pain, palpitations, or SOB. no abdominal pain, nausea, vomiting. no unilateral calf swelling, redness, pain Physical Exam Vitals & Measurements HR: 74(Peripheral) RR: 18 BP: 143/86 HT: 69 in HT: 175 cm WT: 97.5 kg WT: 214.5 lb BMI: 31.84 General: nontoxic, NAD Mouth: moist mucosa Lungs: normal respiratory effort Cardio: regular rate, good distal perfusion Abdomen: nondistended, no suprapubic distention or tenderness, mild R CVA tenderness Neurologic: Grossly normal Skin: No rashes or suspicious lesions Assessment/Plan 1. Flank pain (R10.9: Unspecified abdominal pain) CT AP wo contrast [facility] 03/17/24- Two right distal ureteral stones 7x8mm and 6x4 mm, mod hydro. KUB 04/07/24 [facility] - No visible stones. CEASAR 04/07/24 [facility] - moderate hydro with 1 cm nonobstructing nephrolith Reviewed imaging with pt. She states she passed a stone about 2 weeks ago. Had R flank pain but no complaints of pain today. Discussed surgical intervention due to persistent R hydro, likely due to 2nd stone. Scheduled Right RPG, ureteroscopy with Laser Lithotripsy, stent placement. Abnl EKG found during PST. Surgery postponed. Pt seeing cardiology 05/27/24. Will r/s surgery once cleared. TODAY: Here today bc she's been having mild-moderate R flank pain the past 3 days. It's improving but she's worried she might be developing an infection or the stone has moved. UA looks good. Nontoxic appearing. Discussed CEASAR/KUB vs CT. Pt would like to repeat CT which we haven't done since Feb. Declines offer for pain meds/nausea meds. Explained swelling of face/arm unlikely to be related to . Needs to see PCP. -CT wo con Ordered: Body Mass Index (BMI) documented 3008F Current tobacco non-user 1036F Depression Screening Negative 3352F E&M of Est. Patient Moderate 30-39 Min 90877 Influenza immunization status assessed 1030F Medication list documented in medical record 1159F Most recent diastolic blood pressure 80-89 mm Hg 3079F Most recent systolic blood pressure >= 140 mm Hg 3077F Patient screen for fall risk: no falls in last year or 1 fall with no injury in last year 1101F Review of all meds by a prescribing practitioner or clinical pharmacist documented in EHR 1160F Urnls Dip Stick Auto w/o Microscopy POC 50997 2. Ureteral stone with hydronephrosis (N13.2: Hydronephrosis with renal and ureteral calculous obstruction) See #1 Ordered: E&M of Est. Patient Moderate 30-39 Min 76280 Follow-up With When Contact Information ANN FORTE PA-C, URL Only if needed [address] [place] [address] [facility] (1) Additional Instructions: Patient Education Acute Pain, Adult Problem List/Past Medical History Ongoing Arthritis BMI 31.0-31.9,adult Flank pain Headache Hearing loss Hypercalciuria Hyperlipidemia Hypothyroid Kidney stone Nerve pain Nystagmus Panic disorder Simple renal cyst Stress incontinence Ureteral stone with hydronephrosis Visual impairment Historical No qualifying data Procedure/Surgical History Procedure on brain (10/2003), Ankle, Procedure on eye. Medications ezetimibe, Oral, Daily levothyroxine 25 mcg (0.025 mg) Tab propranolol 20 mg Tab, 20 mg= 1 tab(s), Oral, As Directed Prozac 20 mg Cap, Oral, Daily tamsulosin 0.4 mg Cap, 0.4 mg= 1 cap(s), Oral, Daily Allergies No Known Allergies Social History Alcohol - Low Risk, 07/24/2021 Never., 05/17/2024 Substance Abuse Never., 05/17/2024 Tobacco Former smoker, quit more than 30 days ago Tobacco Use:. Never Smokeless Tobacco Use:., 05/17/2024 (more content not included)... Normal [facility] Comment on above: Result Comment: Elec tronically Signed By: RAAD GONZALEZ, ANN Silvestre\.br\Date and Time Signed: 05/17/24 13:46 EDT Ambulatory Visit Summaryon 0 04-13-2024 Ambulatory Visit Summary Ambulatory Visit Summary RUPERTO SARAVIA :1955 Visit Date:04/13/2024 Ambulatory Visit Instructions Your Diagnosis Kidney stone Stress incontinence Hydronephrosis, right Flank pain Simple renal cyst Your Care Team Attending Physician - Franklin FLOYD, Lexi Regalado Primary Care Physician - GERSON CLEMENTS JR, DO This Is Your Medications List [...] beam o (more content not included)... Normal [facility] Urology Office/Clinic Noteon 04-13-2024 Urology Office/Clinic Note Urology Office/Clinic Note Chief Complaint 9 month follow up with KUB, CEASAR HPI Staff 68 yr old [facility] patient here for 9 month f/u w/ KUB and CEASAR. KUB and CEASAR done 04/07/24 at [facility]. Per pt one stone passed about [...] nonobstructing nephr (more content not included)... Normal [facility] Comment on above: Result Comment: Elec tronically Signed By: Lexi Reid MD\.br\Date and Time Signed: 04/13/24 12:21 EDT\.br\Electronically Co-Signed By: White, Absity A\.br\Date and Time Co-Signed: 04/13/24 11:45 EDT\.br\Electronically Co-Signed By: Andrew Marin A\.br\Date and Time Co-Signed: 04/13/24 11:46 EDT CNOVon 03-30-2024 CNOV Office Visit (OTPREJ) RUPERTO SARAVIA ([id number]) 1955 F Date Time Provider Department 03/30/24 11:00 AM ELIZABETH BALBUENA OTPREJ During your visit today, we recorded the following information about you: Paulina Jerze RN 03/30/2024 11:31 AM Signed Tobacco Use: 1.5 packs/day, for 18 years. Quit 07/20/1999. Types: Cigarettes Was smoking cessation packet given? N/A - Patient is a non-smoker or quit >1 year ago. Was a referral initiated?N/A Patient is a non-smoker. Paulina Jerez RN March 30, 2024 11:31 AM Elizabeth Balbuena MD 04/27/2024 9:37 PM Signed [facility] Name: Ruperto [...] (full thickness) right lower lip by Dr. Balbuena on 04/14/2016. HPI: Here today in follow [...] orbicularis oculi, zygomaticus major, levator labii and lens marker Redemonstrated severe lateral pull of upper lip [...] (2u, 2 sites) = 4 U Left lens marker (3u, 2 site) = 6 U Left [...] injections with either me or Dr. José Balbuena MD [facility] ADDENDUM: I performed the procedure and discussed the patient's management with the fellow. I reviewed and edited the note and agree with the documented findings and treatment plan. Elizabeth Balbuena MD [facility] Head and Neck Medication Aide, Facial Plastic and Microvascular Surgery [employer] [...] of Care Visit completed when applicable. Elizabeth Balbuena MD Referring Provider: ELIZABETH BALBUENA [] Allergies As of Date: 03/30/2024 Noted [...] complex tab (more content not included)... Normal [facility] Ambulatory Visit Summaryon 0 03-17-2024 [...] Your Care Team Attending Physician - ANN FORTE PA-C Primary Care Physician - GERSON CLEMENTS JR, DO This Is Your Medications List [...] FLOYD, Lexi Regalado Where: [facility] [address] [place] [address] [place] [address]- You Need to Schedule the Following Appointments Follow Up with RAAD GONZALEZ, BUDDY MCKOY When: Where: [address] [place] [address] [phone] Medications What How Much When Instructions Unchanged [...] for choosing us for your care. Normal [facility] Urology Office/Clinic Noteon 03-17-2024 Urology Office/Clinic Note [...] urine cx done with her PCP in [place]. Urine cx 03/09/24: negative PVR: 0 ml [...] was [address] AP wo con 04/26/23 [facility] - Bilateral punctate nonobstructing nephrolithiasis (3 [...] 6mm L nonobstructing nephrolith. No L hydro. [place] she was passing a stone 2wks ago. [...] Franklin FLOYD, Lexi Regalado, URL, [facility] [address] [place] [address] [phone] Additional Instructions: keep 04/06/24 appt Patient Education Kidney Stones, [id number]-er-[id number] Documentation recorded by the scribe Alejandra Garcia accurately reflects the services(s) I performed and decisions made by me. Authenticated by Ann Forte PA-C on 03/17/2024 14:49:21. I, Alejandra Garcia, personally scribed for Ann Forte PA-C on 03/17/2024 13:1 (more content not included)... Normal [facility] Comment on above: Result Comment: Elec tronically Signed By: ANN FORTE PA-C\.br\Date and Time Signed: 03/17/24 14:49 EDT\.br\Electronically Co-Signed By: Alejandra Garcia\.br\Date and Time Co-Signed: 03/17/24 13:16 EDT Reminderson 12-30-2023 Reminders - From: Alejandra Garcia To: KER[facility] - Recallkirill Reid; Sent: 06/24/2023 08:37:16 EST Show up: 11/23/2023 09:37:00 EDT Subject: KUB and CEASAR prior to appt Reminder Message Please Remember to:_have pt get KUB and CEASAR prior to appt. Pt has gone to [facility] in the past. KUB/CEASAR order faxed to [facility]. Called pt and left VM to return our call. Pt moved appointment back to 03/30/24 Normal [facility] ISTAT XRay CREon 11-03-2023 ISTAT GFR > 60.0 Normal [facility] Comment on above: Result Comment: PERF ORMED BY: [facility] [address] [facility] [place] [address] PATHOLOGIST CALL CENTER REPRESENTATIVE TIFFANIE ROSS M.D. Performed By: #### I SCRE #### [place] [id number] [place] MR head/brain wo/w conon MR head/brain wo/w con [facility] Main [place] [address] [place] [id number] MRI Report Signed Patient: Ruperto Saravia MR#: [id number] : 1955 Acct:[id number] Age/Sex: 68 / F ADM Date: 11/03/23 Loc: MR Room: Type: [facility] Attending Dr: Shasta Wade PA-C [...] Sanjiv Reis M.D.11/03/2023 3:10 PM Dictation Location: [place] [address] Transcribed By: [facility] 11/03/23 1510 Dictated By: Sanjiv Reis II, MD 11/03/23 1410 Signed By: 11/03/23 1510 Normal [facility] No Panel InformationOrdered By: Shasta Wade on 11-03-2023 Bedside Estimated GFR (eGFR) > 60.0 [facility] Whole blood creatinine measu rementOrdered By: Shasta Wade on 11-03-2023 Creatinine [Mass/Vol] 0.6 mg/dL Normal 0.6-1.3 [facility] Comment on above: ER/ESD physician is notified/shown all ISTAT results.Critical values may be confirmed by laboratory testing ifdeemed necessary by ER attending doctor. Result Comment: ER/E SD physician is notified/shown all ISTAT results. Critical values may be confirmed by laboratory testing if deemed necessary by ER attending doctor. Performed By: #### I SCRE #### [address] CNCOon 10-14-2023 CNCO Letter Text Normal [facility] CNOVon 10-09-2023 CNOV Office Visit (OTOLMN) RUPERTO SARAVIA ([id number]) 1955 F Date Time Provider Department 10/09/23 10:00 AM ADINA HINOJOSA OTOLMN During your visit today, we recorded the following information about you: Adina Hinojosa MD 10/18/2023 4:43 PM Signed [facility] [place] [facility] Name: Ruperto [...] (full thickness) right lower lip by Dr. Balbuena on 04/14/2016. HPI: Here today in follow up for routine botox injections. Doing well since last visit, really liked orbicular williams injections and wants more. 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 - Significant asymmetry due to hyperdynamic function of all divisions of left facial nerve - Frontalis and orbicularis oculi, zygomaticus major, levator labii and lens marker - Severe lateral pull of upper lip [...] units 1 site) = 2 U Left lens marker (3u, 2 site) = 6 U Left procerus (3u, 1 site) = 3 U Left mentalis (2u, 3 sites) 6 U Left platysma (3u, 18 x sites) = 54 units Right TAMRA (3U 1 site)=3U Right lens marker (2U, 2 sites) = 4U Right lateral orbicularis infrabrow= 2U, 1 site=2U Right platysma (3U k2rvpsr) = 9 U Total: 120 units used [...] wish to schedule at this time Adina Hinojosa MD Facial Plastic and Reconstructive Surgery Fellow [facility], [facility] [place] Bogdan Mirza, RN 10/09/2023 10:38 AM Signed [...] disordr [M26.639] 04/24/2010 Myalgia and myositis, unspecified [[id number]] 05/07/2011 Unspecified disorder of muscle, ligament, and [...] a r (more content not included)... Normal [facility] Patient Educationon 06-24-20 Patient Education [...] Spinach (cooked), rhubarb, beets, sweet potatoes, and Chilean chard. ? Peanuts. ? Potato chips, mongolian fries, and baked potatoes with skin on. ? Nuts and nut products. ? Chocolate. ? If you regularly take a diuretic medicine, make sure to eat at least 1 or 2 servings of fruits or vegetables that are high in potassium each day. These include: ? Avocado. ? Banana. ? [place], prune, carrot, or tomato juice. ? Baked [...] fish oil, or vitamin B6. ? Take umom-htw-rqcbibh and prescription medicines only as told by your health care provider. These include supplements. What foods sh (more content not included)... Normal [facility] Urology Office/Clinic Noteon 06-24-2023 Urology Office/Clinic Note [...] Lexi Regalado, URL, URO [address], [facility] [place] [address] [phone] Additional Instructions: 6 mos w/ KUB and [...] Simple renal (more content not included)... Normal [facility] Comment on above: Result Comment: Elec tronically Signed By: Lexi Reid MD\.br\Date and Time Signed: 06/24/23 08:45 EST\.br\Electronically Co-Signed By: Alejandra Garcia\.br\Date and Time Co-Signed: 06/24/23 08:35 EST RAD - MISCon 06-09-2023 RAD - MISC [id number]# 1.00TIFF Normal [facility] RAD - Ultrasound Reporton RAD - Ultrasound Report [id number]# 1.00TIFF Normal [facility] CT ABD/PELVIS WO CONon 11-12 CT ABD/PELVIS [...] by: ARMANDO HOLLINGSWORTH Date: 2022-11-12 11:22 Normal [facility] US KIDNEYSon 07-08-2022 US KIDNEYS US KIDNEYS EXAM DATE: 07/08/2022 5:54 AM MST COMPARISON: Same day radiograph, CT abdomen and pelvis without contrast 07/31/2021 INDICATION: History of kidney stones. TECHNIQUE: Real-time ultrasound scanning of the kidneys and bladder was performed by the facility supervisor. [place] Supervisor static images are submitted for review. FINDINGS: [...] by: JARAD BENAVIDES Date: 2022-07-08 16:58 Normal [facility] XR KUB 1 VIEWon 07-08-2022 XR [...] by: JARAD BENAVIDES Date: 2022-07-08 17:05 Normal [facility] XR DEXA BONE DENSITYon 06-05 XR [...] by: ARMANDO HOLLINGSWORTH Date: 2022-06-05 12:51 [address] [facility] CT FOOT RT WO CONon 02-28-20 [...] by: ARMANDO HOLLINGSWORTH Date: 2022-02-27 18:17 Normal [facility] T4 FREE/FREE THYROXon 2021 Free T4 [Mass/Vol] 1.0 ng/dL 0.9 - 1.7 ng/dL [facility] TSH BLDon 11-12-2021 TSH Qn 2.420 m[IU]/L 0.270 - 4.200 mIU/L [facility] Vital Signs Date Time Vital Sign Value Performing Clinician Janai sandra 05-17-2024 13:17-0400 Diastolic blood pressure 86 mm[Hg] ANN RAAD [facility] 05-17-2024 13:17-0400 Mean blood pressure 105 mm[Hg] ANN RAAD [facility] 05-17-2024 13:17-0400 Systolic blood pressure 143 mm[Hg] ANN RAAD [facility] 05-17-2024 13:13-0400 Blood Pressure Location ANN RAAD [facility] 05-17-2024 13:13-0400 Diastolic blood pressure 80 mm[Hg] ANN RAAD [facility] 05-17-2024 13:13-0400 Heart rate 74 /min ANN RAAD [facility] 05-17-2024 13:13-0400 Respiratory rate 18 /min ANN RAAD [facility] 05-17-2024 13:13-0400 Systolic blood pressure 151 mm[Hg] ANN FORTE [facility] 05-16-2024 15:36-0400 Body height 175.3 cm Shasta Wade PA Work Phone: [facility] 05-16-2024 15:36-0400 Body mass index (BMI) [Ratio] 31.9 kg/m2 Shasta Wade PA Work Phone: [facility] 05-16-2024 15:36-0400 Body weight 97.98 kg Shasta Wade PA Work Phone: [facility] 05-16-2024 15:36-0400 Diastolic blood pressure 74 mm[Hg] Shasta Wade PA Work Phone: [facility] 05-16-2024 15:36-0400 Heart rate 81 /min Shasta Wade PA Work Phone: [facility] 05-16-2024 15:36-0400 Respiratory rate 16 /min Shasta Wade PA Work Phone: [facility] 05-16-2024 15:36-0400 SaO2% (BldA) [Mass fraction] 92 % Shasta Wade PA Work Phone: [facility] 05-16-2024 15:36-0400 Systolic blood pressure 120 mm[Hg] Shasta Wade PA Work Phone: [facility] 04-13-2024 10:56-0400 Diastolic blood pressure 76 mm[Hg] Lexi Lue [facility] 04-13-2024 10:56-0400 Heart rate 68 /min Lexi Lue [facility] 04-13-2024 10:56-0400 Respiratory rate 16 /min Lexi Lue [facility] 04-13-2024 10:56-0400 Systolic blood pressure 118 mm[Hg] Lexi Lue [facility] 04-12-2024 12:47-0400 Blood Pressure Location Lexi Lue [facility] 04-12-2024 12:47-0400 Diastolic blood pressure 76 mm[Hg] Lexi Lue [facility] 04-12-2024 12:47-0400 Heart rate 68 /min Lexi Lue [facility] 04-12-2024 12:47-0400 Respiratory rate 16 /min Lexi Lue [facility] 04-12-2024 12:47-0400 Systolic blood pressure 118 mm[Hg] Lexi Lue [facility] 03-17-2024 13:16-0400 Diastolic blood pressure 82 mm[Hg] ANN RAAD [facility] 03-17-2024 13:16-0400 Mean blood pressure 108 mm[Hg] ANN RAAD [facility] 03-17-2024 13:16-0400 Systolic blood pressure 160 mm[Hg] ANN RAAD [facility] 03-17-2024 12:51-0400 Blood Pressure Location ANN RAAD [facility] 03-17-2024 12:51-0400 Diastolic blood pressure 82 mm[Hg] ANN RAAD [facility] 03-17-2024 12:51-0400 Heart rate 80 /min ANN RAAD [facility] 03-17-2024 12:51-0400 Respiratory rate 16 /min ANN RAAD [facility] 03-17-2024 12:51-0400 Systolic blood pressure 160 mm[Hg] ANN RAAD [facility] 11-03-2023 11:21-0400 Body height 175.26 cm JR Gerson Clements Work Phone: [facility] 11-03-2023 11:21-0400 Body weight 97.52 kg JR Gerson Clements Work Phone: [facility] 11-26-2022 07:56-0400 Blood Pressure Location Lexi Lue [facility] 11-26-2022 07:56-0400 Diastolic blood pressure 67 mm[Hg] Lexi Lue [facility] 11-26-2022 07:56-0400 Heart rate 62 /min Lexi Lue [facility] 11-26-2022 07:56-0400 Systolic blood pressure 113 mm[Hg] Lexi Lue [facility] 01-15-2022 10:13-0400 Blood Pressure Location Lexi Lue [facility] 01-15-2022 10:13-0400 Diastolic blood pressure 73 mm[Hg] Lexi Lue [facility] 01-15-2022 10:13-0400 Heart rate 70 /min Lexi Lue [facility] 01-15-2022 10:13-0400 Respiratory rate 16 /min Lexi Lue [facility] 01-15-2022 10:13-0400 Systolic blood pressure 122 mm[Hg] Lexi Lue [facility] 11-12-2021 10:56-0400 Body height 175.3 cm Shawna Card MD, PhD Work Phone: [facility] 11-12-2021 10:56-0400 Body weight 98.88 kg Shawna Card MD, PhD Work Phone: [facility] 11-12-2021 10:56-0400 Diastolic blood pressure 74 mm[Hg] Shawna Card MD, PhD Work Phone: [facility] 11-12-2021 10:56-0400 Heart rate 64 /min Shawna Card MD, PhD Work Phone: [facility] 11-12-2021 10:56-0400 Systolic blood pressure 128 mm[Hg] Shawna Card MD, PhD Work Phone: [facility] Encounters Encounter Date Encounter Type Care Provider Facility Start: 05-17-2024 End: 05-17-2024 ambulatory ANN FORTE Facility:[facility] Start: 05-17-2024 End: 05-17-2024 Patient encounter procedure ANN FORTE [facility] Start: 05-16-2024 End: 05-16-2024 Office outpatient visit 15 minutes Shasta ONEIL [facility] Comment on above: AVM (arteriovenous m alformation) (Primary Dx); Hallucination, hypnopompic; History of stroke; Migraine without aura and without status migrainosus, not intractable (CMS/HCC); Trigeminal neuralgia (CMS/HCC); Anxiety disorder, unspecified type Start: 05-16-2024 End: 05-16-2024 ambulatory SHASTA WADE Not Available Start: 05-16-2024 End: 05-16-2024 Bamboo flowsheet Shasta ONEIL [facility] Start: 05-16-2024 End: 05-16-2024 Bamboo [employer] Shasta ONEIL Work Phone: [facility] [employer] [facility] Start: 05-11-2024 End: 05-11-2024 ambulatory Lexi M. Lue Facility:[facility] Start: 05-11-2024 End: 05-11-2024 Off-Site Lexi M. Lue [facility] Start: 04-13-2024 End: 04-13-2024 ambulatory Lexi M. Lue Facility:[facility] [place] Start: 04-13-2024 End: 04-13-2024 Patient encounter procedure Lexi M. Lue [facility] Start: 04-08-2024 End: 04-08-2024 ambulatory Lexi M. Lue Facility:[facility] Start: 04-08-2024 End: 04-08-2024 Patient encounter procedure Lexi M. Lue [facility] Start: 04-06-2024 ambulatory Lexi PoojaCari Durankonrad Facility:[facility] Start: 03-30-2024 End: 03-30-2024 ambulatory GERSON LCEMENTS JR Facility:[facility] Start: 03-30-2024 End: 03-30-2024 Patient encounter procedure Elizabeth Balbuena MD Work Phone: [facility] Comment on above: Facial paralysis (Pr imary Dx); Facial nerve motor disorder Start: 03-17-2024 End: 03-17-2024 ambulatory ANN FORTE Facility:[facility] Start: 03-17-2024 End: 03-17-2024 Patient encounter procedure ANNVIN FORTE [facility] [place] Start: 02-25-2024 End: 02-25-2024 ambulatory SHASTA WADE [...] End: 11-03-2023 Patient encounter procedure JR Gerson Clements Work Phone: [facility] [place] Work Phone: Start: 11-03-2023 End: 11-03-2023 ambulatory JR Gerson Clements Work Phone: [facility] Work Phone: Start: 10-09-2023 End: 10-09-2023 ambulatory GERSON CLEMENTS JR Facility:[facility] Start: 08-24-2023 End: 08-24-2023 ambulatory JR Gerson Clements Work Phone: [facility] Work Phone: Start: 08-24-2023 End: 08-24-2023 Patient encounter procedure JR Gerson Clements Work Phone: [facility] [place] Work Phone: Start: 08-06-2023 End: 08-06-2023 ambulatory MICHAEL CRUZ Not Available Start: 06-24-2023 End: 06-24-2023 ambulatory Lexi Reid Facility:[facility] Start: 06-24-2023 End: 06-24-2023 Patient encounter procedure Lexi Reid [facility] Start: 04-10-2023 End: 04-10-2023 Patient encounter procedure Adina Hinojosa MD Work Phone: Otolaryngology Comment on above: Facial paralysis (Pr imary Dx) Start: 11-26-2022 End: 11-26-2022 Patient encounter procedure Lexi Reid [facility] Start: 11-12-2022 End: 11-13-[address] ARMANDO HOLLINGSWORTH Facility: Start: 09-10-2022 ambulatory Elizabeth Balbuena MD Work Phone: [facility] Start: 09-10-2022 Patient encounter procedure Elizabeth Balbuena MD Work Phone: [facility] Comment on above: Botox Appointment Start: 07-23-2022 End: 07-23-2022 Patient encounter procedure Lexi Reid [facility] Start: 07-08-2022 End: 07-09-2022 ambulatory LEXI REID . Facility:[facility] Start: 06-05-2022 End: 06-06-[address] GERSON CLEMENTS Facility:[facility] Start: 05-16-2022 End: 05-16-2022 Patient encounter procedure Elizabeth Balbuena MD Work Phone: [facility] Comment on above: Facial nerve motor d isorder (Primary Dx) Start: 02-27-2022 End: 02-28-2022 ambulatory VINCENT BURCIAGA Facility:[facility] Start: 02-19-[address] GERSON CLEMENTS Facil ity:[facility] Start: 01-15-2022 End: 01-15-2022 Patient encounter procedure Lexi Reid [facility] Start: 12-25-2021 End: 12-26-2021 ambulatory ALHAJI TRUJILLO Facility:[facility] Start: 12-13-2021 End: 12-13-2021 Patient encounter procedure Elizabeth Balbuena MD Work Phone: [facility] Comment on [...] 11-23-2020 End: 11-23-2020 Patient encounter procedure Gerson Clements Work Phone: [facility] Procedures Date Procedure Procedure Detail Performing Clinician Start: 11-03-2023 MRI of head JR Gerson Clements Work Phone: Start: 11-07-2021 Mammography Shasta ONEIL Work Phone: Start: 11-23-2020 Screening mammograph y of bilateral breasts Gerson Clements Work Phone: Start: 10-19-2003 Procedure on brain Nasreen Reid Ankle region structu re (body structure) Lexi Reid Procedure on eye Lexi Reid Plan of Treatment Date Care Activity Detail Author Start: 09-24-2031 RSV Vaccine (1 - 1-d ose 75+ series) RSV Vaccine (1 - 1-dose 75+ series) [facility] Start: 09-06-2024 End: 09-06-2024 Patient encounter procedure 09/06/2024 1:20 PM EST Office Visit [facility] [place] [facility] [address] [place] [phone] Emilia Cervantes PA [address] [place] [address] [facility] [place] [facility] Start: 05-16-2024 End: 05-16-2024 Patient encounter procedure 05/16/2024 3:40 PM EDT Office Visit [facility] [place] [facility] [address] [place] [phone] Shasta Wade PA [address] [place] [address] Arrived [facility] [place] [facility] Comment on above: Arrived Start: 04-24-2024 Screening for malign ant neoplasm of colon [facility] Start: 03-20-2024 Covid-19 Vaccine ( season) Covid-19 Vaccine ( season) [facility] Start: 03-20-2024 Influenza vaccination Influenza Vacc ine (#1) [facility] Start: 07-20-2023 Advance Directive Discussion Advance Directive Discussion [facility] Start: 03-20-2023 Influenza vaccination Influenza Vacc ine (#1) [facility] Start: 11-07-2022 Screening for malign ant neoplasm of breast [facility] Start: 07-20-2022 ADVANCE DIRECTIVE DISCUSSION ADVANCE DIRECTIVE DISCUSSION [facility] Start: 07-20-2022 DEPRESSION ASSESSMENT DEPRESSION ASS ESSMENT [facility] Start: 03-20-2022 Influenza vaccination [facility] Start: 10-31-2021 COVID-19 VACCINE (4 - Booster for Pfizer series) COVID-19 VACCINE (4 - Booster for Pfizer series) [facility] Start: 2021 ADVANCE DIRECTIVE DISCUSSION ADVANCE DIRECTIVE DISCUSSION [facility] Start: 2021 BONE DENSITY BONE DENSITY [facility] Start: 2021 Bone Density Screening Bone Density Screening [facility] Start: 2021 Pneumococcal Vaccine : 65+ (1 - PCV) Pneumococcal Vaccine: 65+ (1 - PCV) [facility] Start: 2021 Pneumococcal Vaccine : 65+ (1 of 1 - PCV) Pneumococcal Vaccine: 65+ (1 of 1 - PCV) [facility] Start: 2021 Pneumococcal Vaccine : 65+ Years (1 of 1 - PCV) Pneumococcal Vaccine: 65+ Years (1 of 1 - PCV) [facility] Start: 2021 PNEUMOCOCCAL: 65+ (1 - PCV) PNEUMOCOCCAL: 65+ (1 - PCV) [facility] Start: 2021 PNEUMOVAX AGE 65 AND OVER WITH 5YR LOOKBACK (#1) PNEUMOVAX AGE 65 AND OVER WITH 5YR LOOKBACK (#1) [facility] Start: 2021 Screening for osteoporosis Bone Density Screening [facility] Start: 08-27-2021 COVID-19 VACCINE (4 - Booster for Pfizer series) COVID-19 VACCINE (4 - Booster for Pfizer series) [facility] Start: 08-27-2021 Covid-19 Vaccine (4 - Pfizer series) Covid-19 Vaccine (4 - Pfizer series) [facility] Start: 07-20-2021 DEPRESSION ASSESSMENT DEPRESSION ASS ESSMENT [facility] Start: 12-24-2012 DIABETES SCREEN DIABETES SCREEN [facility] Start: 12-24-2012 Diabetes Screening Diabetes Screenin g [facility] Start: 2006 SHINGRIX VACCINE (1 of 2) SHINGRIX VACCINE (1 of 2) [facility] Start: 2001 COLOGUARD (FIT-DNA) COLOGUARD (FIT-D NA) [facility] Start: 2001 Colonoscopy COLONOSCOPY [facility] Start: 2001 COLORECTAL CANCER SCREENING COLORECTAL CANCER SCREENING [facility] Start: [address] COLONOGRAPHY [facility] Start: 2001 FECAL OCCULT BLOOD FECAL OCCULT BLOO D [facility] Start: 2001 Lipid 1996 panel - S john or Plasma Lipid Screening [facility] Start: 2001 Lipid panel Lipid Screening [facility] Start: 2001 LIPID SCREEN LIPID SCREEN [facility] Start: 2001 Screening for malign ant neoplasm of colon [facility] Start: 2001 SIGMOIDOSCOPY SIGMOIDOSCOPY [facility] Start: 1996 Mammography [facility] Start: 09-24-1975 Urine microalbumin profile [facility] Start: 1974 Depression Screening Depression Scre ening [facility] Start: 1974 HEPATITIS C SCREENING HEPATITIS C [facility] Start: 1974 Hepatitis C screening Hepatitis C [facility] Start: 1974 HIV SCREENING HIV SCREENING [facility] Start: 1968 Adult depression screening assessment DEPRESSION SCREENING [facility] Start: 1956 Screening for malign ant neoplasm of colon [facility] [place] [facility] Immunizations Immunization Date Immunization Notes Care Provider Rosa tom 07-02-2021 SARS-CoV-2 (COVID-19 ) mRNA BNT-162b2 vax Lexi Lue [facility] 01-08-2021 SARS-CoV-2 (COVID-19 ) mRNA BNT-162b2 vax Lexi Lue [facility] 10-08-2020 SARS-CoV-2 (COVID-19 ) mRNA BNT-162b2 vax Lexi Lue [facility] 07-20-2020 SARS-CoV-2 (COVID-19 ) mRNA BNT-162b2 vax Lexi Lue [facility] Payers Date Payer Category Payer Self-pay [id number] 2023 Unknown [id number] 2017 Private Health Insurance [facility] UMR CHOICE PLUS [id number] 2017-Present [phone] [address] [address] [place] [address] O [id number]. [id number] 2017 Private Health Insurance [id number]. [id number] 2012 Unknown DENTAL DENTAL GE NERIC [id number] 2012-Present [phone] [address] [address] [place] [address] Dental [id number]. [id number] 2005 Medicare MEDICARE MEDICAR E A AND B [id number] 2005-Present [phone] [address] [address] [place] [address] Medicare [id number]. [id number] 2005 Medicare [id number] 1.13.159.2. [id number] 1959 Medicare [id number] 1959 Private Health Insurance [id number] 1956 Unknown [id number] 2.16.840.1.180719.3.579.2. 593 1956 Unknown [id number] 2.16.840.1.841321.3.579.2. 593 1956 Unknown [id number] 2.16.840.1.349664.3.579.2. 593 1956 Unknown [id number] 2.16.840.1.989544.3.579.2. 593 1956 Unknown [id number] 2.16.840.1.843618.3.579.2. 593 1956 Unknown [id number] 2.16.840.1.881281.3.579.2. 593 1956 Unknown [id number] 2.16.840.1.961997.3.579.2. 1259 1956 Unknown [id number] 2.16.840.1.732578.3.579.2. 1259 1956 Unknown [id number] 2.16.840.1.431991.3.579.2. 1259 1956 Unknown [id number] 2.16.840.1.317269.3.579.2. 1259 1956 Unknown [id number] 2.16.840.1.280351.3.579.2. 1259 1956 Unknown [id number] 2.16.840.1.876453.3.579.2. 1259 1956 Unknown [id number] 2.16.840.1.592534.3.579.2. 1259 1956 Unknown [id number] 2.16.840.1.899998.3.579.2. 1259 1956 Unknown [id number] 2.16.840.1.843442.3.579.2. 1259 1956 Unknown [id number] 2.16.840.1.647175.3.579.2. 727 1956 Unknown [id number] 2.16.840.1.536194.3.579.2. 727 1956 Unknown [id number] 2.16.840.1.699045.3.579.2. 727 1956 Unknown [id number] 2.16.840.1.124506.3.579.2. 727 1956 Unknown [id number] 2.16.840.1.389639.3.579.2. 727 1956 Unknown [id number] 2..840.1.126575.3.579.2. 727 Medicare Self Pay [id number] Unknown [id number] Unknown [id number] 2.16.840.1.899558.3.579.2. 531 Social History Date Type Detail Facility Tobacco smoking stat [facility] Unknown if ever smoked [facility] Start: 1955 Sex Assigned At Female [facility] Start: 09-18-2021 End: 05-17-2024 Tobacco smoking status NHIS Ex-smoker [facility] Start: 07-20-1981 End: 07-20-1999 History of tobacco use Current smoker [facility] Start: 07-20-1981 End: 07-20-1999 History of tobacco use Cigarette Smoker [facility] Start: 11-12-2021 End: 10-09-2023 Alcohol intake Current non-drinker of alcohol (finding) [facility] Start: 1955 Sex Assigned At Not on file [facility] Start: 11-02-2021 End: 05-16-2022 Exposure to SARS-CoV-2 (event) Not sure [facility] Start: 04-10-2023 End: 05-16-2024 Sex Assigned At Female [facility] Start: 05-16-2022 End: 05-16-2024 Cigarettes smoked current (pack per day) - Reported 1.5 [facility] Start: 05-16-2022 End: 01-16-2023 Tobacco use and exposure Smokeless tobacco non-user [facility] National Score (1-10 0), lower number is lower risk 87 [facility] Start: 12-12-2021 Gender identity Identifies as female gender (finding) [facility] Start: 02-25-2024 End: 05-16-2024 Alcoholic beverage intake Lifetime non-drinker (finding) [facility] How often to you hav e a drink containing alcohol? Monthly or less [facility] How many standard drinks containing alcohol do you have on a typical day? 1 or 2 [facility] How often do you hav e 6 or more drinks on 1 occasion? Never [facility] Start: 01-16-2023 Tobacco Comment Last smoked 10 + years ago [facility] Start: 01-16-2023 Alcohol Comment Caffine intake :4+ cups daily [facility] Medical Equipment Procedure Code Equipment Code Equipment Origin al Text Equipment Identifier Dates Tyree hendrix 1.0g - [id number] Start: 12-24-2009 Goals Date Patient Goal Desired Activity /State Functional Status Date Assessment Result Facility 05-17-2024 Functional Status N/A [facility] 04-13-2024 Functional Status N/A [facility] 04-12-2024 Functional Status [facility] 03-17-2024 Functional Status N/A [facility] 06-24-2023 Functional Status N/A [facility] 11-26-2022 Functional Status N/A [facility] 07-23-2022 Functional Status N/A [facility] 01-15-2022 Functional Status N/A [facility] Clinical Notes 11-12-2021 to 05-17-2024 THAD Rosa - 05/16/2024 3:40 PM Elizabeth De Dios MD - 04/03/2024 6:09 PM Paulina Garcia RN - 03/30/2024 11:30 AM Paulina Garcia RN - 03/30/2024 11:30 AM EDTRadiology Note Date & Type Note Facility 05-17-2024 Hospital Discharge instructions Patient Education 05/17/2024 13:44:18 Acute Pain, Adult Acute Pain, Adult Acute pain is a type of sudden pain that may last for just a few days or for as long as three months. It is often related to an illness, injury, or a medical procedure. Acute pain may be mild, moderate, or severe. Pain can make it hard for you to do your daily activities. It can cause anxiety and lead to other problems if it is not treated. Treatment may not take all the pain away, but it may lessen the pain so you can move around and tolerate it. Pain is best treated with medicines and other therapies such as distraction, meditation, oils from plants (aromatherapy), heat, and ice. Treatment depends on the cause of the pain and how severe it is. Acute pain usually goes away once your injury has healed or you are no longer ill. Follow these instructions at home: Medicines Take lzzd-oaw-netfcxp and prescription medicines only as told by your health care provider. Take the lowest dose of medicine for the shortest amount of time needed to relieve the pain. If you are taking prescription pain medicine: ?Do not stop taking the medicine suddenly. Talk to your health care provider about how and when to stop taking prescription medicine. ?Do not take more pills than told by your health care provider even if your pain is severe. ?Do not take other sqvh-qgi-kdjjykk pain medicines in addition to prescription pain medicine unless told by your health care provider. ?Keep your medicine in a safe place, away from children or anyone who could use it in a way that it was not prescribed. ?Ask your health care provider if the medicine prescribed to you requires you to avoid driving or using machinery. Managing pain, stiffness, and swelling If told, put ice on the affected area. ?Put ice in a plastic bag. ?Place a towel between your skin and the bag. ?Leave the ice on for 20 minutes, 2 3 times a day. If told, apply heat to the affected area as often as told by your health care provider. Use the heat source that your health care provider recommends, such as a moist heat pack or a heating pad. ?Place a towel between your skin and the heat source. ?Leave the heat on for 20 30 minutes. If your skin turns bright red, remove the ice or heat right away to prevent skin damage. The risk of damage is higher if you cannot feel pain, heat, or cold. Managing constipation Your medicines may cause constipation. To prevent or treat constipation, you may need to: Drink enough fluid to keep your urine pale yellow. Take ckdd-bms-vzxqyan or prescription medicines. Eat foods that are high in fiber, such as beans, whole grains, and fresh fruits and vegetables. Limit foods that are high in fat and processed sugars, such as fried or sweet foods. Activity Rest as told by your health care provider. Return to your normal activities as told by your health care provider. Ask your health care provider what activities are safe for you. Ask your health care provider if doing physical therapy exercises to improve movement and strength can help you manage your pain. General instructions Check your pain level as told by your health care provider. Ask your health care provider if distraction, relaxation, or aromatherapy can help you manage your pain. Keep all follow-up visits. Your health care provider will monitor your pain level. Contact a health care provider if: Your pain is not controlled by medicine. Your pain does not improve or gets worse. You have side effects from pain medicines. Get help right away if: You have severe pain. You have trouble breathing. You faint, or another person sees you faint. You have chest pain or pressure that lasts for more than a few minutes, or if you have other symptoms along with chest pain, including: ?Pain or discomfort in one or both arms, your back, neck, jaw, or stomach. ?Shortness of breath. ?A cold sweat. ?Nausea. ?Feeling light-headed. These symptoms may be an emergency. Get help right away. Call 911. Do not wait to see if the symptoms will go away. Do not drive yourself to the hospital. This information is not intended to replace advice given to you by your health care provider. Make sure you discuss any questions you have with your health care provider. Document Revised: 01/28/2023 Document Reviewed: 01/28/2023 Cross Current Patient Education 2023 [employer]. Follow Up Care 05/16/2024 13:01:03 With:RAAD GONZALEZ, ANN Silvestre, URL Address: [address] [place] [address] Business (1) When: only if needed [facility] 05-17-2024 Note Patient Education Orthopedics Acute Pain, Adult Acute pain is a type of sudden pain that may last for just a few days or for as long as three months. It is often related to an illness, injury, or a medical procedure. Acute pain may be mild, moderate, or severe. Pain can make it hard for you to do your daily activities. It can cause anxiety and lead to other problems if it is not treated. Treatment may not take all the pain away, but it may lessen the pain so you can move around and tolerate it. Pain is best treated with medicines and other therapies such as distraction, meditation, oils from plants (aromatherapy), heat, and ice. Treatment depends on the cause of the pain and how severe it is. Acute pain usually goes away once your injury has healed or you are no longer ill. Follow these instructions at home: Medicines ??? Take xemd-yvx-akceaet and prescription medicines only as told by your health care provider. ??? Take the lowest dose of medicine for the shortest amount of time needed to relieve the pain. ??? If you are taking prescription pain medicine: ? Do not stop taking the medicine suddenly. Talk to your health care provider about how and when to stop taking prescription medicine. ? Do not take more pills than told by your health care provider even if your pain is severe. ? Do not take other eyfc-byu-vlgbnzw pain medicines in addition to prescription pain medicine unless told by your health care provider. ? Keep your medicine in a safe place, away from children or anyone who could use it in a way that it was not prescribed. ? Ask your health care provider if the medicine prescribed to you requires you to avoid driving or using machinery. Managing pain, stiffness, and swelling ??? If told, put ice on the affected area. ? Put ice in a plastic bag. ? Place a towel between your skin and the bag. ? Leave the ice on for 20 minutes, 2?3 times a day. ??? If told, apply heat to the affected area as often as told by your health care provider. Use the heat source that your health care provider recommends, such as a moist heat pack or a heating pad. ? Place a towel between your skin and the heat source. ? Leave the heat on for 20?30 minutes. ??? If your skin turns bright red, remove the ice or heat right away to prevent skin damage. The risk of damage is higher if you cannot feel pain, heat, or cold. Managing constipation Your medicines may cause constipation. To prevent or treat constipation, you may need to: ??? Drink enough fluid to keep your urine pale yellow. ??? Take imqh-vjq-fitfuiv or prescription medicines. ??? Eat foods that are high in fiber, such as beans, whole grains, and fresh fruits and vegetables. ??? Limit foods that are high in fat and processed sugars, such as fried or sweet foods. Activity ??? Rest as told by your health care provider. ??? Return to your normal activities as told by your health care provider. Ask your health care provider what activities are safe for you. ??? Ask your health care provider if doing physical therapy exercises to improve movement and strength can help you manage your pain. General instructions ??? Check your pain level as told by your health care provider. ??? Ask your health care provider if distraction, relaxation, or aromatherapy can help you manage your pain. ??? Keep all follow-up visits. Your health care provider will monitor your pain level. Contact a health care provider if: ??? Your pain is not controlled by medicine. ??? Your pain does not improve or gets worse. ??? You have side effects from pain medicines. Get help right away if: ??? You have severe pain. ??? You have trouble breathing. ??? You faint, or another person sees you faint. ??? You have chest pain or pressure that lasts for more than a few minutes, or if you have other symptoms along with chest pain, including: ? Pain or discomfort in one or both arms, your back, neck, jaw, or stomach. ? Shortness of breath. ? A cold sweat. ? Nausea. ? Feeling light-headed. These symptoms may be an emergency. Get help right away. Call 911. ??? Do not wait to see if the symptoms will go away. ??? Do not drive yourself to the hospital. This information is not intended to replace advice given to you by your health care provider. Make sure you discuss any questions you have with your health care provider. Document Revised: 01/28/2023 Document Reviewed: 01/28/2023 Elsevier Patient Education ? 2023 [employer]. [facility] 05-16-2024 History of Present illness Narrative Subjective Ruperto Saravia is a 68 y.o. 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 Coordination impairment BRAIN SX - 2008 Degenerative disc disease, cervical 02/08/2010 Degenerative disc disease, lumbar 01/30/2014 Depression (CMS/HCC) 02/09/2008 Dizziness 08/11/2018 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 H/O section H/O eye surgery right; 2006, 2007 Hemangioma 08/09/2009 History of medical problems thyroid Lack of coordination 01/25/2008 Migraine ([facility]/HCC) 05/26/2017 Neck pain 08/11/2018 Other disorders of facial nerve 02/09/2008 Panic attacks ([facility]) Sleep disturbance 01/05/2013 Snoring 07/16/2015 Stroke ([facility]/HCC) 05/26/2017 Tension type headache 08/11/2018 Trigeminal neuralgia ([facility]/HCC) 10/20/2014 Past Surgical History: Procedure Laterality Date ANKLE SURGERY Right 2020 BRAIN SURGERY 10/2008 BRAIN STEM BRAIN SURGERY 2009 tumor removal CLOSED REDUCTION WRIST FRACTURE EYE MUSCLE SURGERY Left EYE SURGERY Right 08/2016 eyebrow muscle lift EYE SURGERY eyefacial tendon repair FACIAL COSMETIC SURGERY HM MAMMOGRAPHY 11/23/2020 [facility] IR INJECTION BOTOX MUSCLE Right botox right eye ORIF ANKLE FRACTURE Left [address] DR TRUJILLO OTHER SURGICAL HISTORY surgical repair OTHER SURGICAL HISTORY 06/2007 reinervation OTHER SURGICAL HISTORY brain stem surgery PAP SMEAR 10/06/2018 [facility] SHOULDER SURGERY Left 2016 TENDON TRANSFER temporalis US GUIDED THYROID BIOPSY 04/21/2018 US GUIDED THYROID BIOPSY US GUIDED THYROID BIOPSY 06/01/2018 US GUIDED THYROID BIOPSY 06/01/2018 Family History Problem Relation Name Age of Onset Hypertension Mother Brain Aneurysm Father Kidney cancer Father AVM Father Cancer Father Breast cancer Maternal Grandmother Cancer Maternal Grandmother Stroke Maternal Grandfather Stroke Paternal Grandfather Hypertension Other Melanoma Neg Hx Social History Tobacco Use Smoking status: Former Types: Cigarettes Smokeless tobacco: Never Tobacco comments: Last smoked 10+ years ago Substance Use Topics Alcohol use: Never Comment: Caffine intake:4+ cups daily HPI Trigeminal Neuralgia -denies any flair ups or facial pain -she states her head feels hot and sweating and then her eyes and nose run -states it lasts a few minutes -states she feels pretty stable . Migraine -on Propranolol -denies any migraines . Stroke -drooling continues, denies any worsening -left eye continues to go crazy -continues to have right sided facial droop -admits some speech difficulty -numbness and tingling in her finger tips on her left hand -left sided weakness since her surgery in 2008 . Hallucination -hallucinations are less frequent -reports them 1-2 nights a week -occurs during the night when she wakes up -mostly is people she will see -able to fall back asleep -wears a CPAP nightly -does not wake feeling rested -continues to be constantly fatigued ROS Review of Systems Constitutional: Positive for fatigue. Respiratory: Negative. Cardiovascular: Negative. Gastrointestinal: Negative. Musculoskeletal: Positive for gait problem. Neurological: Positive for dizziness, facial asymmetry and speech difficulty. Psychiatric/Behavioral: Positive for hallucinations. Hematological: Negative. Objective Visit Vitals BP 120/74 Pulse 81 Resp 16 Ht 5' 9 Wt 216 lb SpO2 92% BMI 31.90 kg/m Smoking Status Former BSA 2.18 m Neurological Exam Mental Status Awake, alert and oriented to person, place and time. Memory: MOCA 23/30. Speech is normal. Language is fluent with no aphasia. Attention and concentration are normal. Fund of knowledge is appropriate for level of education. Cranial Nerves CN III, IV, : Left ptosis. 6th cranial nerve palsy. CN V: Facial sensation is normal. CN VII: Right sided facial droop that is chronic. CN VIII: Hearing is normal. CN XI: Shoulder shrug strength is normal. Motor Normal muscle bulk throughout. Normal muscle tone. No abnormal involuntary movements. Gait Casual gait is normal including stance, stride, and arm swing. Motor Examination RUE Strength deltoid, biceps, triceps, wrist extensors, wrist extensors, wrist flexor, sprinkler fitter helper strength 5/5. LUE Strength deltoid, biceps, triceps, wrist extensors, wrist extensors, wrist flexor, sprinkler fitter helper strength 5/5. RLE Strength illopsoas, quadriceps, tibialis anterior, and gastrocnemius strength 5/5. LLE Strength illopsoas, quadriceps, tibialis anterior, and gastrocnemius strength 5/5. Tone Normal tone x4 extremities. Reflexes: RUE biceps reflex 2, brachioradialis reflex 2 LUE biceps reflex 2, brachioradialis reflex 2 RLE knee reflex 2, ankle reflex 2 LLE knee reflex 2, ankle reflex 2 Heart: Regular rate and rhythm Assessment and Plan Diagnoses and all orders for this visit: AVM (arteriovenous malformation) Patient has history of ruptured AVM requiring surgery in 2008 and then developed stroke during surgery. 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 She previously followed with Dr. Monterroso at [facility] and neuro ophthalmology. Hypnopompic hallucination History of stroke Patient has been experiencing visual hallucinations manifested as seeing dark shadows of animals and people primarily at night and occasionally in the morning. This has been occurring for about 6 + months and have lessened in frequency. Brain MRI was updated and was nonacute. She does also note infrequent episodes of confusion and memory difficulties. Due to her history of stroke and AVM, EEG was obtained and was normal. MOCA was 23/30 with 1/5 recall. Neuropsychology evaluation revealed no evidence of neurodegenerative condition. Visual disturbances were thought to be most consistent with hypnopompic hallucinations. Migraine without aura and without status migrainosus, not intractable (CMS/HCC) History of migraines and treated with propranolol. Remains stable. Trigeminal neuralgia (CMS/HCC) She has trigeminal neuralgia and previously on neurontin. She has tried botox in the past at [facility]. She weaned gabapentin and is feeling better without the medication. Symptoms are at baseline. Anxiety disorder She has anxiety and depression with panic attacks. Symptoms are lessened with prozac and propranolol. She did have cardiac work up previously that was negative. Zoloft caused side effect. Compliance download 01/26/2024-02/24/2024: revealed AHI 4.9, average usage 5 hours and 29 minutes, shows occasional leaks Neuropsychology evaluation 02/02/2024: revealed when focused and attentive, near return to cognitive baseline estimates aside from some mild struggles with naming, phonemic verbal fluency, and verbal abstract reasoning. Excellent cognitive recovery with no apparent residual functional deficits. No evidence of a neurodegenerative condition. Findings were in the context of moderate depression and anxiety as well as poor sleep with daytime fatigue. Her nighttime visual disturbances seem most consistent with hypnopompic hallucinations. MOCA 12/28/2023: 07/24 recall Routine EEG 12/22/2023: normal routine EEG Brain MRI with and without contrast 11/03/2023: revealed susceptibility noted in the pontine tegmentum to the right of midline consistent with a history of cavernous malformation. A small focus of susceptibility noted in the left parietal lobe possibly representing the location of a second cavernous malformation. There was atrophy of the left cerebellar hemisphere. There was increased T2 and FLAIR signal intensity within the medulla anteriorly. Brain MRI with and without contrast 02/2021: Revealed approximately 6mm area of signal alteration in the posterior aspects of the pontomedullary junction the right of midline. There was artifact vs few small areas of hemosiderin deposition posterior aspects of the cerebellum. There was an area of hemosiderin deposition in the deep white matter left parietal lobe. There was chronic minimal supratentorial white matter changes and some mild white matter disease in the medulla oblongata including what is probably the right corticospinal region. PLAN Continue propranolol 20mg 1-2 tabs PO at bedtime for anxiety, headache prevention, and tremor Continue following PCP for BP management Patient to follow up with this clinic in 4-6 months or sooner for new or worsening symptoms documented in this encounter [facility] 04-13-2024 Hospital Discharge instructions Patient Education 04/13/2024 11:44:08 Kidney Stones [...] Follow these instructions at home: Medicines Take nkes-yek-uyvwxei and prescription medicines only as told by [...] provider. Document Revised: 10/15/2022 Document Reviewed: 10/15/2022 Cross Current Patient Education 2023 [employer]eli. Follow Up Care 04/05/2024 10:57:54 With:Franklin FLOYD, BUDDY Garcia, [facility] Address: When: Unknown Comments:Jim menjivar [facility] 04-13-2024 Note Patient Education Urology Kidney Stones [...] these instructions at home: Medicines ? Take esgc-ipn-ipuroia and prescription medicines only as told by [...] diet. Follow r (more content not included)... [facility] 04-04-2024 Evaluation + Plan note Future Scheduled TestsXR Abdomen 1 View 04/04/24US Renal 04/04/24 [facility] 04-03-2024 Note HNO ID: [id number] Author: ELIZABETH BALBUENA MD Service: ? Author Type: Physician Type: Progress Notes Filed: 04/27/2024 21:37 Note Text: [facility] [place] [facility] Name: Ruperto [...] (full thickness) right lower lip by Dr. Balbuena on 04/14/2016. HPI: Here today in follow [...] orbicularis oculi, zygomaticus major, levator labii and lens marker Redemonstrated severe lateral pull of upper lip [...] (2u, 2 sites) = 4 U Left lens marker (3u, 2 site) = 6 U Left [...] injections with either me or Dr. José Balbuena MD [facility] ADDENDUM: I performed the procedure and discussed the patient's management with the fellow. I reviewed and edited the note and agree with the documented findings and treatment plan. Elizabeth Balbuena MD [facility] Neck Medication Aide, Facial Plastic and Microvascular Surgery UNIVERSAL PROTOCOL [...] of Care Visit completed when applicable. Elizabeth Balbuena MD [facility] 04-03-2024 History of Present illness Narrative [facility] [place] [facility] Name: Ruperto [...] (full thickness) right lower lip by Dr. Balbuena on 04/14/2016. HPI: Here today in follow [...] orbicularis oculi, zygomaticus major, levator labii and lens marker Redemonstrated severe lateral pull of upper lip [...] (2u, 2 sites) = 4 U Left lens marker (3u, 2 site) = 6 U Left [...] injections with either me or Dr. José Balbuena MD [facility] [place] [facility] ADDENDUM: I performed the procedure and discussed the patient's management with the fellow. I reviewed and edited the note and agree with the documented findings and treatment plan. Elizabeth Balbuena MD [facility] Head and Neck Medication Aide, Facial Plastic and Microvascular Surgery UNIVERSAL PROTOCOL [...] of Care Visit completed when applicable. Elizabeth Balbuena MD documented in this encounter [facility] 03-30-2024 Nurse Note Tobacco Use: 1.5 packs/day, for 18 years. Quit 07/20/1999. Types: Cigarettes Was smoking cessation packet given? N/A - Patient is a non-smoker or quit >1 year ago. Was a referral initiated?N/A Patient is a non-smoker. Paulina Jerez RN March 30, 2024 11:31 AM [facility] 03-30-2024 Nurse Note Tobacco Use: 1.5 packs/day, for 18 years. Quit 07/20/1999. Types: Cigarettes Was smoking cessation packet given? N/A - Patient is a non-smoker or quit >1 year ago. Was a referral initiated?N/A Patient is a non-smoker. Paulina Jerez RN March 30, 2024 11:31 AM documented in this encounter [facility] 03-17-2024 Hospital Discharge instructions Patient Education 03/17/2024 13:15:00 Kidney Stones, Zwrl-bu-Tolb Kidney Stones Kidney stones are rock-like masses [...] Follow these instructions at home: Medicines Take rkww-oua-exugrdh and prescription medicines only as told by [...] provider. Document Revised: 03/10/2022 Document Reviewed: 03/10/2022 Cross Current Patient Education 2022 [employer]eli. Follow Up Care 03/17/2024 09:52:31 With:Franklin FLOYD, Lexi M., URL, [facility] Address: [address] [place] [address] [phone] When: Unknown [facility] 03-17-2024 Note Patient Education Urology Kidney Stones [...] these instructions at home: Medicines ? Take uqtl-zwv-tdrogqz and prescription medicines only as told by [...] provider. Document Revised: 03/10/2022 Document Reviewed: 03/10/2022 ElseEZBOB Patient Education ? 2022 [employer]. [facility] 10-09-2023 Note HNO ID: [id number] Author: ADINA HINOJOSA MD Service: ? Author Type: Physician Type: Progress Notes Filed: 10/18/2023 16:43 Note Text: [facility] [place] [facility] Name: Ruperto [...] (full thickness) right lower lip by Dr. Balbuena on 04/14/2016. HPI: Here today in follow up for routine botox injections. Doing well since last visit, really liked orbicular williams injections and wants more. 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 - Significant asymmetry due to hyperdynamic function of all divisions of left facial nerve - Frontalis and orbicularis oculi, zygomaticus major, levator labii and lens marker - Severe lateral pull of upper lip [...] units 1 site) = 2 U Left lens marker (3u, 2 site) = 6 U Left procerus (3u, 1 site) = 3 U Left mentalis (2u, 3 sites) 6 U Left platysma (3u, 18 x sites) = 54 units Right TAMRA (3U 1 site)=3U Right lens marker (2U, 2 sites) = 4U Right lateral orbicularis infrabrow= 2U, 1 site=2U Right platysma (3U s2mowzm) = 9 U Total: 120 units used [...] wish to schedule at this time Adina Hinojosa MD Facial Plastic and Reconstructive Surgery Fellow [facility], [facility] [place] [place] [facility] 06-24-2023 Hospital Discharge instructions Patient Education 06/24/2023 08:16:54 Dietary Guidelines [...] include: ?8 oz (237 mL) of milk, xvtguau-xkftnsbvosih-ziini milk, and calcium-fortifiedfruit juice. Calcium-fortified means that [...] ?Spinach (cooked), rhubarb, beets, sweet potatoes, and Chilean chard. ?Peanuts. ?Potato chips, mongolian fries, and baked potatoes with skin on. ?Nuts and nut products. ?Chocolate. If you regularly take a diuretic medicine, make sure to eat at least 1 or 2 servings of fruits or vegetables that are high in potassium each day. These include: ?Avocado. ?Banana. ?[place]abash, prune, carrot, or tomato juice. ?Baked potato. [...] magnesium, fish oil, or vitamin B6. Take kboq-dzs-aeqsojt and prescription medicines only as told by [...] Casseroles. Pizza. Lasagna. Frozen meals. Potato chips. Turkish fries. The items listed above may not [...] provider. Document Revised: 10/16/2022 Document Reviewed: 10/16/2022 Cross Current Patient Education 2022 [employer]. Follow Up Care 11/26/2022 08:11:41 With:Franklin FLOYD, Lexi Regalado, URL, [facility] Address: [address], [place] [phone] When: Unknown Comments:6 mos w/ MARCOB and CEASAR [facility] 04-10-2023 Nurse Note Tobacco Use: 1.5 packs/day, for 18 years. Quit 07/20/1999. Types: Cigarettes Was smoking cessation packet given? N/A - Patient is a non-smoker or quit >1 year ago. Was a referral initiated?N/A Patient is a non-smoker documented in this encounter [facility] 04-10-2023 History of Present illness Narrative [facility] [place] Facial Plastic and Reconstructive Surgery Name: Ruperto [...] (full thickness) right lower lip by Dr. Balbuena on 04/14/2016. HPI: Here today in follow [...] orbicularis oculi, zygomaticus major, levator labii and lens marker - Severe lateral pull of upper lip [...] (2u, 4 sites) = 8 U Left lens marker (3u, 2 site) = 6 U Left [...] wish to schedule at this time Adina Hinojosa MD Facial Plastic and Reconstructive Surgery Fellow [facility] [place] documented in this encounter [facility] 11-26-2022 Hospital Discharge instructions Patient Education 11/26/2022 08:10:02 Dietary Guidelines [...] include: ?8 oz (237 mL) of milk, eazumcu-vaduffpqpdwb-gwldx milk, and calcium-fortifiedfruit juice. Calcium-fortified means that [...] ?Spinach (cooked), rhubarb, beets, sweet potatoes, and Chilean chard. ?Peanuts. ?Potato chips, mongolian fries, and baked potatoes with skin on. ?Nuts and nut products. ?Chocolate. If you regularly take a diuretic medicine, make sure to eat at least 1 or 2 servings of fruits or vegetables that are high in potassium each day. These include: ?Avocado. ?Banana. ?[place]abash, prune, carrot, or tomato juice. ?Baked potato. [...] magnesium, fish oil, or vitamin B6. Take awxh-twv-kuowwph and prescription medicines only as told by [...] Casseroles. Pizza. Lasagna. Frozen meals. Potato chips. Turkish fries. The items listed above may not [...] provider. Document Revised: 03/17/2022 Document Reviewed: 03/17/2022 Cross Current Patient Education 2022 [employer]. Follow Up Care 07/23/2022 11:38:48 With:Franklin FLOYD, BUDDY Garcia, [facility] Address: When: Unknown [facility] 07-23-2022 Hospital Discharge instructions Patient Education 07/23/2022 11:37:41 Kidney Stones, Mlgo-vo-Meda Kidney Stones Kidney stones are rock-like masses [...] Follow these instructions at home: Medicines Take vjda-nqo-jgtssrr and prescription medicines only as told by [...] 12/22/2008 Document Revised: 11/22/2019 Document Reviewed: 11/22/2019 Cross Current Patient Education 2019 [employer]. Follow Up Care 01/15/2022 10:50:51 With:Franklin FLOYD, BUDDY Garcia, [facility] Address: [address] [place] [phone] When:Within 3 Month(s) Comments:sched CT AP w/o [facility] 05-16-2022 History of Present illness Narrative Botox 50U with 0.5ml NaCl Lot [id number] Exp 11/2024 [place] [facility] [place] Facial Plastic and Reconstructive Surgery Name: Ruperto [...] (full thickness) right lower lip by Dr. Balbuena on 04/14/2016. HPI: Here today in follow [...] orbicularis oculi, zygomaticus major, levator labii and lens marker -Severe lateral pull of upper lip to [...] (2u, 4 site) = 8 u Left lens marker (3u, 2 site) = 6 U Left [...] -3 months for repeat botox injections Elizabeth Balbuena MD [facility] Medication Aide, Facial Plastic and Microvascular Surgery By signing my name below, I, Adrian Sepulveda, attest that this documentation has been prepared under the direction and in the presence of Dr. Elizabeth Balbuena. Electronically signed, Lita Middleton May 16, 2022 2:59 PM I have reviewed and edited above documentation and it accurately reflects assessment, work and decisions made by me. Elizabeth Balbuena MD [facility] Medication Aide, Facial Plastic and Microvascular Surgery UNIVERSAL PROTOCOL [...] of Care Visit completed when applicable. Elizabeth Balbuena MD documented in this encounter [facility] 05-16-2022 Nurse Note Tobacco Use: 1.5 packs/day, for 18 years. Quit 07/20/1999. Types: Cigarettes Was smoking cessation packet given? N/A - Patient is a non-smoker or quit >1 year ago. Was a referral initiated?N/A Patient is a non-smoker documented in this encounter [facility] 01-15-2022 Hospital Discharge instructions Patient Education 01/15/2022 10:39:00 Kidney Stones, Eusl-fi-Qgcr Kidney Stones Kidney stones are rock-like masses [...] Follow these instructions at home: Medicines Take xngf-pxm-djqsxvp and prescription medicines only as told by [...] 12/22/2008 Document Revised: 11/22/2019 Document Reviewed: 11/22/2019 Cross Current Patient Education 2020 [employer]. Follow Up Care 09/18/2021 11:24:57 With:Franklin FLOYD, BUDDY Garcia, [facility] Address: [facility] [place] [address]- [phone] When:07/17/2022 Comments:CONCETTA MCDONOUGH [facility] 12-25-2021 Note PROCEDURE: XR FOOT R T MIN 3 VIEWS COMPARISON: 02/06/2021 HISTORY: Pain in right foot FINDINGS: BONES:No acute fracture or dislocation. Moderate enthesopathic spurring of the calcaneus. Stable corticated calcific density lateral to the cuboid SOFT TISSUES:Negative. No visible soft tissue swelling. EFFUSION:None visible. OTHER: Negative. IMPRESSION: No acute fracture Electronically authenticated by: ARMANDO HOLLINGSWORTH Date: 2021-12-25 16:49 [facility] 12-13-2021 History of Present illness Narrative [place] Facial Plastic and Reconstructive Surgery Name: Ruperto [...] (full thickness) right lower lip by Dr. Balbuena on 04/14/2016. HPI: Here today in follow [...] orbicularis oculi, zygomaticus major, levator labii and lens marker severe lateral pull of upper lip to [...] (2u, 2 sites) = 4 U left lens marker (3u, 2 site) = 6 U left [...] direction and in the presence of Dr. Balbuena Electronically signed, Lita Sesay December 13, 2021 1:29 PM I have reviewed and edited above documentation and it accurately reflects assessment, work and decisions made by me. Elizabeth Balbuena MD [facility] Medication Aide, Facial Plastic and Microvascular Surgery Procedure: Botox Injections Informed Consent Consent Obtained: Written [place] Protocol A moment to CARE was completed [...] completed when applicable documented in this encounter [facility] 11-19-2021 Miscellaneous Notes Notified pt of message, [...] 1.7 ng/dL 1.0 documented in this encounter [facility] 11-12-2021 History of Present illness Narrative Ms. 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 Stroke ([facility]) Social History: Social History Tobacco Use Smoking [...] Card MD, PhD documented in this encounter [facility] Evaluation + Plan note Future Appointments Appointment Date:07/23/2022 10:00:00 AM Scheduled Provider:Lue MD, Lexi Rodriguez:[facility] Appointment Type:URO Office Visit [facility] Evaluation + Plan note Future Appointments Appointment Date:10/29/2022 10:15:00 AM Scheduled Provider:Lexi Reid MD Location:[facility] Appointment Type:URO Office Visit [facility] Evaluation + Plan note Future Appointments Appointment Date:06/24/2023 08:00:00 AM Scheduled Provider:Lexi Reid MD Location:[facility] Appointment Type:URO Office Visit [facility] Evaluation + Plan note Future Appointments Appointment Date:01/06/2024 09:00:00 AM Scheduled Provider:Lexi Reid MD Location:[facility] Appointment Type:URO Office Visit [facility] Evaluation + Plan note Future Appointments Appointment Date:04/06/2024 11:00:00 AM Scheduled Provider:Lexi Reid MD Location:[facility] Appointment Type:URO Office Visit [facility] Evaluation + Plan note Future Appointments Appointment Date:04/12/2024 12:40:00 PM Scheduled Provider:ANN FORTE PA-C Location:[facility] Appointment Type:URO Office Visit Future Scheduled TestsXR Abdomen 1 View 04/04/24US Renal 04/04/24 [facility] Evaluation note No Assessments Infor [facility] Evaluation note Diagnosis Multiple thyroid nodules- Primary Nontoxic multinodular goiter Obesity, Class I, BMI 30-34.9 Obesity, unspecified Vasomotor symptoms due to menopause [facility] Diagnosis 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 Facial nerve disorder, unspecified [facility] Diagnosis Facial nerve motor disorder- Primary Facial nerve disorder, unspecified [facility] Diagnosis 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 [facility] noteNo assessment information [facility] Work Phone: Evaluation note* Diagnosis 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 Facial nerve disorder, unspecified documented in this encounter [facility] note* Diagnosis 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, unspecified site Hallucination, hypnopompic Hallucinations History of stroke Transient ischemic attack (TIA), and cerebral infarction without residual deficits Migraine without aura and without status migrainosus, not intractable (CMS/HCC) Trigeminal neuralgia (CMS/HCC) Trigeminal neuralgia Anxiety disorder, unspecified type [facility] N[facility] No data available for this section [facility] Hospital Discharge instructions No data available for this section [facility] Progress note No data available for this section [facility] Advance Directives No Advanced Directives Records Found Advance Directive Response Recorded Date/ Time Advance Directives No May 2:55pm Documents on File Type Date Recorded Patient [employer] Supervisor 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 Advance Directive(s) 06/24/2019 7:51 AM Advance Directive(s) 06/01/2018 7:17 AM Advance Directive(s) 05/27/2018 1:38 PM Advance Directive(s) 12/12/2009 8:53 PM Documents on File Type Date Recorded Patient [employer] Supervisor 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 Advance Directive(s) 06/24/2019 7:51 AM Advance Directive(s) 06/01/2018 7:17 AM Advance Directive(s) 05/27/2018 1:38 PM Advance Directive(s) 12/12/2009 8:53 PM Documents on File Type Date Recorded Patient [employer] Supervisor 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 Advance Directive(s) 12/12/2009 8:53 PM [...] HOSPITAL 60-74 MINUTES Shawna Card MD, PhD [address] [place] [address] Vicki Kiser MD [address] [place] [address] Referral ID Status Reason Start Date Expiration Date Visits Requested Visits Authorized [id number] Authorized PCP Requested Referral Auto-Generate d Referral [...] or prosecute any alcohol or drug abuse patient.[facility] the event this information is protected by the Federal Confidentiality of Alcohol and Drug Abuse Patient Records regulations: The Federal rules restrict any use of the information to criminally investigate or prosecute any alcohol or drug abuse patient.[facility] the event this information is protected by the Federal Confidentiality of Alcohol and Drug Abuse Patient Records regulations: The Federal rules restrict any use of the information to criminally investigate or prosecute any alcohol or drug abuse patient.[facility] the event this information is protected by the Federal Confidentiality of Alcohol and Drug Abuse Patient Records regulations: The Federal rules restrict any use of the information to criminally investigate or prosecute any alcohol or drug abuse patient.[facility] the event this information is protected by the Federal Confidentiality of Alcohol and Drug Abuse Patient Records regulations: The Federal rules restrict any use of the information to criminally investigate or prosecute any alcohol or drug abuse patient.[facility] the event this information is protected by the Federal Confidentiality of Alcohol and Drug Abuse Patient Records regulations: The Federal rules restrict any use of the information to criminally investigate or prosecute any alcohol or drug abuse patient.[facility] the event this information is protected by the Federal Confidentiality of Alcohol and Drug Abuse Patient Records regulations: The Federal rules restrict any use of the information to criminally investigate or prosecute any alcohol or drug abuse patient.[facility] Reason for Visit (unrecogniz ed section and content) Reason Comments Procedure Specialty Diagnoses / Procedures Referred By Alisson lin Referred To Contact ENT-OTOLARYNGOLOGY 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 Renewal medical botox Procedures CHEMODNRVTJ [facility] INNERVATED FACIAL NRV UNIL BOTULINUM TOXIN A PER 1 UNIT Med botox 100 units every 3-4 months for 1 year Elizabeth Balbuena MD [address] [place] [address] Elizabeth Balbuena MD [address] [place] [address] Referral ID Status Reason Start Date Expiration Date V isits Requested Visits Authorized [id number] Authorized 04/01/2023 07/19/2024 99 99 Reason Comments Facial nerve spasm Facial nerve spasm, Botox Specialty Diagnoses / Procedures Referred By Contact Referred To Contact Ent - Otolaryngology / ENT-FACIAL PLASTICS Diagnoses 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, unspecified Alcala's palsy Repeat medical botox injections Procedures BOTULINUM TOXIN A PER 1 UNIT CHEMODNRVTJ [facility] INNERVATED FACIAL NRV UNIL RENEWAL REQUEST INJECTABLE (100 UNITS EVERY 3-4 MONTHS FOR 1 YR) [place] [address] [place] [address] Elizabeth Balbuena MD [address] [place] [address] Referral ID Status Reason Start Date Expiration Date V isits Requested Visits Authorized [id number] Authorized 12/13/2021 10/24/2022 99 99 Reason Comments Thyroid Problem Reason Comments Results Reason Comments Botox Injection Referral ID Status Reason Start Date Expiration Date V isits Requested Visits Authorized [id number] Pending Review 12/13/2021 12/12/2022 4 4 Reason Comments Follow Up Botox Referral ID Status Reason Start Date Expiration Date V isits Requested Visits Authorized [id number] Authorized 04/01/2023 03/31/2024 99 99 Reason Comments Trigeminal Neuralgia Migraine Stroke Care Teams (unrecognized sec tion and content) Window Systems Administrator Relationship Specialty Start Date End Date Gerson Clements Jr. [address] [facility] [address] [place] [address] PCP - General 08/24/01 Window Systems Administrator Relationship Specialty Start Date End Date Gerson Clements Jr. [address] [facility] [address] [place] [address] PCP - General 08/24/01 Window Systems Administrator Relationship Specialty Start Date End Date Gerson Clements Jr. [address] [place] [address] PCP - General 08/24/01 Window Systems Administrator Relationship Specialty Start Date End Date Gerson Clements Jr. [address] [place] [address] PCP - General 08/24/01 Window Systems Administrator Relationship Specialty Start Date End Date Gerson Clements Jr. [address] [place] [address] PCP - General 08/24/01 Window Systems Administrator Relationship Specialty Start Date End Date Gerson Clements Jr. [address] [facility] [address] [place] [address] PCP - General 08/24/01 Team Status: Active Member Role Status Dates Gerson Clements JR DO Primary Care Provider Active Team Status: Inactive Member Role Status Dates Gerson Clements JR DO Primary Care Provider Active Start: August 24, 2023 End: August 24, 2023 Shasta Wade PA-C Attending Provider Active Sta rt: August 24, 2023 End: August 24, 2023 Team Status: Inactive Member Role Status Dates Gerson Clements JR DO Primary Care Provider Active Start: November 03, 2023 End: November 03, 2023 Shasta Wade PA-C Attending Provider Active Sta rt: November 03, 2023 End: November 03, 2023 Window Systems Administrator Relationship Specialty Start Date End Date Gerson Clements Jr., DO [address] [place] [address] PCP - General 08/24/01 Window Systems Administrator Relationship Specialty Start Date End Date Gerson Clements MD [address] [place] [address] PCP - General Internal Medicine 01/07/23 Window Systems Administrator Relationship Specialty Start Date End Date Gerson Clements MD [address] [place] [address] PCP - General Internal Medicine 01/07/23 INFORMATION SOURCE (unrecogn ized section and content) DATE CREATED AUTHOR 11/15/2022 [facility] DATE CREATED AUTHOR AUTHOR'S ORGANIZ ATION 04/30/2024 [facility] DATE CREATED AUTHOR AUTHOR'S ORGANIZ ATION 04/30/2024 [facility] DATE CREATED AUTHOR AUTHOR'S ORGANIZ ATION 05/17/2024 [facility] DATE CREATED AUTHOR AUTHOR'S ORGANIZ ATION 05/19/2024 [facility] Goals (unrecognized section and content) Goals may [...] BE BASED ON THE PRIMARY CLINICAL RECORDS. [employer] [facility]. provides no warranty or guarantee of the accuracy or completeness of information in this document.
== END 2024-05-20 12:32 | disposition home or self-care (01) ==
LOC: CT 12:31
PROVIDERS: PCP Internal Medicine; Visit Provider Physician Assistant
DX: R10.9 Unspecified abdominal pain (principal); N13.2 Hydronephrosis with renal and ureteral calculous obstruction
CPT/HCPCS: 74176

== ENCOUNTER 2024-07-01 12:13 | Outpatient (OUT) | payer MEDICARE, OTHER, SELFPAY ==
--- NOTE | 2024-07-01 12:16 | MR_ITS ---
The [address] [address] Patient Name: RUPERTO SARAVIA MRN: [id number] date: 1955 Sex: F Assigned Patient Location: MRI Current Patient Location: Accession/Order Number: [id number] Exam Date: 07/01/2024 12:30 Report Date: 07/04/2024 09:12 At the request of: GERSON CLEMENTS Procedure: MR shoulder RT wo con HISTORY: Right shoulder pain with limited range of motion for the past month. Multiple recent falls. MR shoulder RT wo con: 07/01/2024 12:30 PM EST COMPARISON: None. TECHNIQUE: Multiplanar, multisequence MRI images of the shoulder were obtained. FINDINGS: A few images are slightly degraded by motion artifact. ACROMIOCLAVICULAR JOINT AND ROTATOR CUFF OUTLET: There are mild degenerative changes of the acromioclavicular joint. There is a type I acromion. There is a small amount of edema-like signal in the subacromial/subdeltoid space. ROTATOR CUFF: There is moderate tendinopathy of the distal supraspinatus tendon. There is no significant rotator cuff tear. No atrophy or strain of the rotator cuff musculature is seen. The bulk of the rotator cuff musculature appears within normal limits. BICEPS TENDON AND LABRUM: The long bicipital tendon appears within normal limits. There is degenerative blunting of the majority of the posterior labrum. The remainder of the labrum appears grossly within normal limits. GLENOHUMERAL JOINT: The articular cartilage appears grossly within normal limits. BONES: There is an expansile lesion involving the anterosuperior aspect of the glenoid extending into the adjacent base of the coracoid process. This lesion extends into the soft tissues along the anterior and superior aspect of the glenoid and is associated with a displaced pathologic fracture of the base of the coracoid process. This lesion measures 2.0 x 2.3 x 2.3 cm. There is a large amount of edema within the adjacent superior glenoid and the coracoid process. There is also soft tissue edema surrounding this region. No other lesion is identified. There is mild subcortical cystic change in the greater tuberosity. MR/MR shoulder RT wo con IMPRESSION: 1. There is an expansile lesion involving the anterosuperior aspect of the glenoid extending into the adjacent base of the coracoid process and into the adjacent soft tissues. This lesion is associated with a displaced pathologic fracture of the base of the coracoid process. Differential diagnostic considerations for this lesion primarily include a metastasis or focus of multiple myeloma in a patient of this age. Less likely this could represent a primary bone tumor. Radiographs of the shoulder are recommended for further evaluation and a PET/CT scan may be of benefit for further workup for evidence of possible other metastatic disease. 2. Moderate tendinopathy of the supraspinatus tendon without evidence of a rotator cuff tear. 3. Mild subacromial/subdeltoid bursitis. 4. Mild acromioclavicular joint osteoarthritis. 5. Degenerative blunting of the posterior labrum. I discussed the findings of this case with the referring clinician, Dr. Gerson Clements, at 9:10 AM on 07/04/2024 when the study was presented to me for interpretation. Electronically authenticated by: MARTIN OBREGON Date: 07/04/2024 09:12
--- OUTSIDE RECORDS SUMMARY | 2024-07-01 12:32 | XMS_ITS | CCD ---
Author Organization [facility] Care Team Providers Care Planning And Analysis Manager Name Role Phone Gerson Clements Primary Care Provider Self, Referral Attending Provider Unavailable Gerson Clements Jr. Primary Care Provider GERSON CLEMENTS JR Primary Care Physician Gerson Clements Jr. Primary Care Provider Gerson Clements Jr. Primary Care Provider DR ARMANDO HOLLINGSWORTH V Consulting Unavailable VALONE, DR NIETO Primary Care Unavailable LEXI DIETZ Admitting Unavailable LUKonrad .LEXI Attending Unavailable LEXI DIETZ Consulting Unavailable VALONE, [...] Primary Care Unavailable LEXI DIETZ Attending Unavailable FRANKLIN .LEXI Consulting Unavailable JARAD BENAVIDES Consulting Unavailable JR Gerson Clements Primary Care Provider CARLOS Wade Attending Provider ValJR Gerson nava Primary Care Provider [phone] CARLOS Wade Attending Provider GERSON CLEMENTS JR Primary Care Unavail able ELIZABETH BALBUENA Referring Unavailable ELIZABETH BALBUENA Attending Unavailable GERSON CLEMENTS JR Primary Care Unavail able ADINA HINOJOSA Attending Unavailable Lisa Carson DO, Charles Lewis Primary Care Provi heladio Gerson Clements MD Primary Care Provider MICHAEL CRUZ Attending Unavailable REMIGIO, SHASTA Attending Unavailable HILL, SHASTA Referring Unavailable HILL, SHASTA Attending Unavailable GABRIEL BEYER Attending Unavailable MICHAEL CRUZ A Attending Unavailable HILL, SHASTA Attending Unavailable HILL, SHASTA Attending Unavailable Gerson Clements DO Primary Care Provider [phone] ЕЛЕНА GRIFFIN Attending Unavailable GERSON CLEMENTS Primary Care Unavailable Gerson Clements JR Primary Care Provider [phone] Lexi Reid MD Attending Provider Lexi Reid Attending Unavailable Lexi Reid Attending Unavailable Lexi Reid MCari Attending Unavailable LuLexi silvestre MCari Attending Unavailable LueLexi MCari Attending Unavailable ReneeeLexi Attending Unavailable Lexi Reid MCari Attending Unavailable ANN FORTE Attending Unavailable ANN FORTE Attending Unavailable Lexi Reid Attending Unavailable Gerson Clements Primary Care Unavailable Reneee, Lexi M Admitting Unavailable Hill, Shasta C Admitting Unavailable Remigio, Shasta C Attending Unavailable Gerson Clements Primary Care Unavailable Lexi Reid Admitting Unavailable Lexi Reid Attending Unavailable Gerson Clements Primary Care Unavailable Allergies Allergy Classification Reported Allergen(s) Allergy Type Date of Onset Reaction(s) Facility (8 sources) Seasonal allergy; Translations: [SEASONAL ALLERGIES] Propensity to adverse reactions 0 Itching [facility] (3 sources) Other Propensity to adverse reactions 0 Itching [facility] Healthcare Work Phone: (1 source) Unable to Assess Drug allergy (disorder) 4 [facility] Repository Medications Current Medications Medication Drug Class(es) Dates Sig (Normalized) Sig (Original) acetaminophen 325 mg oral tablet (1 source) Start: 06-07-2024 take 1 tablet by mouth every six hours as needed for pain Acetaminophen (Tylenol) 325 mg tablet Active 325 MG PO Every 6 hours as needed for pain June 07, 2024 12:00am Ascorbic Acid (7 sources) Vitamin C ASCORBIC ACID (VITAMIN C ORAL) Take by mouth. Active ASCORBIC [...] as needed. ezetimibe 10 mg oral tablet (20 sources) Dietary Cholesterol Absorption Inhibitor Start: 05-31-2024 take 5 mg by mouth once daily in the morning Ezetimibe (Zetia) 10 mg tablet Active 5 MG PO Every morning May 31, 2024 12:00am Start: 10-03-2021 take 1 tablet by ramírez th in the morning ezetimibe (Zetia) 10 MG tablet Take 10 mg by mouth in the morning. 09/27/2022 Active Start: 07-24-2021 take 1 mg by mouth once daily ezetimibe mg, Oral, Daily Start Date: 07/24/21 Status: Ordered Comment on above: Take 10 mg by mouth once daily. FLUoxetine 20 mg oral capsule (20 sources) Serotonin Reuptake Inhibitor Start: 11-26-2022 take 1 capsule by mouth once daily in the morning Fluoxetine 20 mg capsule Active 20 MG PO Every morning May 31, 2024 12:00am Start: 11-06-2021 FLUoxetine 10 mg Cap Refills(s) [...] 1 pill three ti mes a day hydroCHLOROthiazide 25 mg oral tablet (1 source) Thiazide Diuretic Start: 2023 End: 2024 take 1 tablet by mouth once daily hydrochlorothiazide 25 mg Tab 25 mg = 1 tab(s), Oral, Daily, X 30 day(s), # 30 tab(s), Refills(s) 11, Pharmacy: [facility]/pharmacy #[id number], 175, cm, 06/23/24 12:55:00 EST, Height/Length Dosing, 97.5, kg, 06/23/24 12:55:00 EST, Weight Dosing Start Date: 06/23/24 Stop Date: 06/18/25 Status: Ordered levothyroxine sodium 0.025 mg oral tablet (13 sources) l-Thyroxine Start: 2023 take 1 tablet by mouth once daily at bedtime Levothyroxine 25 mcg tablet Active 25 MCG PO Daily at bedtime May 31, 2024 12:00am Start: 06-24-2023 levothyroxine 25 mcg (0.025 mg) Tab Refills(s) 0 Start Date: 06/24/23 Status: Ordered Start: 03-27-2023 take 1 tablet by ramírez th in the morning levothyroxine (Synthroid, Levoxyl) 25 mcg tablet Take 1 tablet (25 mcg) by mouth early in the morning.. 03/27/2023 Active MAGNESIUM BISGLYCINATE PO (3 sources) MAGNESIUM BISGLY CINATE PO Take 300 mg by mouth Active Magnesium Oxide-Mg Amino Aci d Chelate 300 mg cap (4 sources) take 1 capsule by [facility] once daily at bedtime Magnesium Oxide-Mg Amino Acid Chelate 300 mg cap Take 300 mg by mouth daily at bedtime. Active take 1 capsule by [facility] once daily at bedtime Magnesium Oxide-Mg Amino Acid Chelate 30 0 mg cap Take 300 mg by mouth daily at bedtime. 0 Active Comment on above: Take 300 mg by mouth daily at bedtime. meloxicam 15 mg oral tablet (3 sources) Nonsteroidal Anti-inflammatory Drug Start: 05-31-2024 take 1 tablet by mouth once daily in the morning Meloxicam 15 mg tablet Active 15 MG PO Every morning May 31, 2024 12:00am Start: 05-20-2024 [facility] meloxicam (Mobic) 15 mg tablet Take 1 tablet (15 mg) by mouth early in the morning.. 05/20/2024 Active modafinil 200 mg oral tablet (3 sources) Sympathomimetic-like Agent Start: 01-01-2023 modafinil (Provigil) 200 MG tablet 01/01/2023 Active Multiple Vitamins-Minerals (PRESERVISION AREDS 2 PO) (3 sources) Multiple Vitamins-Minera ls (PRESERVISION AREDS 2 PO) Take by mouth Active oxybutynin chloride 5 mg oral tablet (1 source) Cholinergic Muscarinic Antagonist Start: 06-07-2024 Oxybutynin Chloride 5 mg tablet Active 5 MG PO 2-3 TIMES PER DAY as needed for bladder spasms June 07, 2024 12:00am propranolol hydrochloride 60 mg oral tablet (20 sources) beta-Adrenergic Vamshi Start: 05-31-2024 take 1 tablet by mouth once daily at bedtime as needed for anxiety Propranolol 60 mg tablet Active 60 MG PO Daily at bedtime as needed for tremor(s), anxiety May 31, 2024 12:00am Start: 12-28-2022 propranolol (I nderal) 60 mg tablet Take 1 tablet (60 mg) by mouth as needed at bedtime (tremor). 12/28/2022 Active Start: 07-24-2021 propranolol 20 mg Tab 20 mg = 1 tab(s), Oral, As Directed Start Date: 07/24/21 Status: Ordered Comment on above: as needed. sulfamethoxazole 800 mg / trimethoprim 160 mg oral tablet (1 source) Dihydrofolate Reductase Inhibitor Antibacterial, Sulfonamide Antimicrobial Start: 06-07-20 take 1 tablet by mouth every twelve hours Sulfamethoxazole- Trimethoprim (Bactrim Ds) 800-160 mg tablet Active 1 TAB PO Every 12 hours 2 June 07, 2024 12:00am tamsulosin hydrochloride 0.4 mg oral capsule (6 sources) alpha-Adrenergic Vamshi Start: 03-17-20 take 1 capsule by mouth once daily tamsulosin 0.4 mg Cap 0.4 mg = 1 cap(s), Oral, Daily, # 30 cap(s), Refills(s) 0, Pharmacy: [facility]/pharmacy #[id number], 175, cm, 03/17/24 12:54:00 EDT, Height/Length Dosing, 95, kg, 03/17/24 12:54:00 EDT, Weight Dosing Start Date: 03/17/24 Status: Ordered Vitamin B Complex (7 sources) Start: 08-03-19 take 1 tablet by mouth once daily [...] Problem Date Documented Date Episodic/Chronic Abdominal pain (15 sources) Abdominal pain; Translations: [Unspecified abdominal pain] Onset: 01-15-2022 Episodic Acute cerebrovascular disease (3 sources) Cerebrovascular accident; Translations: [Cerebral infarction, unspecified] Onset: 05-26-2017 11-12-2023 Chronic Anxiety disorders (20 sources) Anxiety state; Translations: [Generalized anxiety disorder] Onset: 11-12-2023 06-01-2008 Chronic Blindness and vision defects (6 sources) Visual impairment Onset: 07-20-2008 03-17-2024 Chronic Comment on above: Outside Source Comme nt: Overview: 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 Calculus of urinary tract (20 sources) Kidney stone; Translations: [Calculus of kidney] Onset: 01-15-2022 Episodic Cardiac and circulatory congenital anomalies (12 sources) Congenital anomaly of cerebrovascular system; Translations: [Other malformations of cerebral vessels] Onset: 07-17-2005 04-01-2018 Chronic Disorders of lipid metabolism (14 sources) Hyperlipidemia; Translations: [Mixed hyperlipidemia] Onset: 05-27-2024 07-24-2021 Chronic Genitourinary symptoms and ill-defined conditions (12 sources) Stress incontinence (female) (male); Translations: [Genuine stress incontinence] Onset: 11-26-2022 Chronic Genitourinary symptoms and ill-defined conditions (12 sources) Hypercalciuria; Translations: [Hypercalciuria] Onset: 01-15-2022 Episodic Headache; including migraine (8 sources) Migraine; Translations: [Migraine, unspecified, not intractable, without status migrainosus] Onset: 05-26-2017 11-12-2023 Chronic Headache; including migraine (10 sources) Headache 07-24-2021 Episodic Menopausal disorders (8 sources) Menopausal syndrome; Translations: [Menopausal and female climacteric states] Onset: 11-12-2021 Chronic Osteoarthritis (14 sources) Arthritis; Translations: [Primary osteoarthritis, right ankle and foot] Onset: 02-27-2022 07-24-2021 Chronic Other circulatory disease (2 sources) History of cerebrovascular accident; Translations: [Personal history of transient ischemic attack (TIA), and cerebral infarction without residual deficits] 05-16-2024 Episodic Other connective tissue disease (10 sources) Neuralgia 07-24-2021 Episodic Other diseases of kidney and ureters (3 sources) Acquired renal cyst without neoplastic change; Translations: [Cyst of kidney, acquired] Onset: 06-24-2023 Episodic Other diseases of kidney and ureters (7 sources) Simple renal cyst 06-24-2023 Episodic Other diseases of kidney and ureters (3 sources) Hydronephrosis; Translations: [Unspecified hydronephrosis] Onset: 03-17-2024 Episodic Other diseases of kidney and ureters (3 sources) Urinary tract obstruction; Translations: [Hydronephrosis with renal and ureteral calculous obstruction] Onset: 04-13-2024 Episodic Other ear and sense organ disorders (6 sources) Hearing loss Onset: 07-20-2009 03-17-2024 Chronic Comment on above: Outside Source Comme nt: Overview: 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] Onset: 12-21-2013 12-21-2013 Chronic Other eye disorders (10 sources) Nystagmus 07-24-2021 Chronic Other hereditary and degenerative nervous system conditions (7 sources) Myoclonus; Translations: [Myoclonus] 06-01-2008 Chronic Other injuries and conditions due to external causes (1 source) Foreign body in bladder; Translations: [Foreign body in bladder, initial encounter] Onset: 06-23-2024 Episodic Other nervous system disorders (1 source) Facial spasm; 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, unspecified] Episodic Other nervous system disorders (3 sources) Facial nerve motor disorder; Translations: [Other disorders of facial nerve] Episodic Other nervous system disorders (2 sources) Facial palsy; 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] 04-10-2023 Episodic Other nervous system disorders (5 sources) Trigeminal neuralgia; Translations: [Trigeminal neuralgia] Onset: 10-20-2014 11-12-2023 Episodic Other nervous system disorders (2 sources) Tremor; Translations: [Tremor, unspecified] Onset: 05-27-2024 05-27-2024 Episodic Other nervous system disorders (2 sources) Tremor, unspecified; Translations: [Tremor, unspecified] Onset: 05-27-2024 Episodic Other nutritional; endocrine; and metabolic disorders (8 sources) Obese class I; Translations: [Obesity, unspecified] Onset: 11-12-2021 Chronic Other nutritional; endocrine; and metabolic disorders (12 sources) Body mass index 30+ - obesity; Translations: [Body mass index (BMI) 31.0-31.9, adult] Onset: 05-27-2024 09-18-2021 Chronic Other nutritional; endocrine; and metabolic disorders (2 sources) Body mass index (BMI) 31.0-31.9, adult; Translations: [Body mass index (BMI) 31.0-31.9, adult] Onset: 05-27-2024 Chronic Residual codes; unclassified (2 sources) Hypnapompic hallucinations; Translations: [Other hallucinations] 05-16-2024 Episodic Screening and history of mental health and substance abuse codes (4 sources) Ex-smoker; Translations: [Personal history of nicotine dependence] Onset: 05-27-2024 05-27-2024 Episodic Spondylosis; intervertebral disc disorders; other back problems (6 sources) Degeneration of lumbar intervertebral disc; Translations: [Degenerative disc disease, lumbar] Onset: 02-08-2010 11-12-2023 Chronic Thyroid disorders (20 sources) Multinodular goiter; Translations: [Nontoxic multinodular goiter] Onset: 11-12-2021 Chronic Unclassified (1 source) Patient encounter status 05-29-2024 Past or Other Problems Problem Classification Problem [...] pain; Translations: [Cervicalgia] Onset: 9 11-12-2023 Episodic Unclassified (4 sources) Obstructive hydronephrosis 04-13-2024 Unclassified (1 source) Onset: 4 05-27-2024 Results Test Name Value Interpretation Reference Range Facility Calculi, Urinaryon 4 Ca Oxalate Dihydrate 40 % Normal . [facility] Comment on above: Performed By: #### C ALCULI #### [facility] , Ca Oxalate Monohydrate 60 % Normal . [facility] Comment on above: Performed By: #### C ALCULI #### [facility] , Color (U) Brown Normal . [facility] Comment on above: Performed By: #### C ALCULI #### [facility] , Comment: Comment Normal . [facility] Comment on above: Result Comment: Aletha gamboa questions regarding Calculi Analysis [facility] at: [phone]. Performed By: #### C ALCULI #### [facility] , Composition Comment Normal . [facility] Comment on above: Result Comment: Perc entage (Represents the % composition) Performed By: #### C ALCULI #### [facility] , Disclaimer: Comment Normal . [facility] Comment on above: Result Comment: This test was developed and its performance characteristics determined by [employer]. It has not been cleared or approved by the Food and Drug Administration. Performed at: [address] [id number] Medical Staff Credentialing Coordinator: Lorie Farmer PhD, Phone: [phone] Performed By: #### C ALCULI #### [facility] , Note Comment Normal . [facility] Comment on above: Result Comment: Calc anjel report will follow via computer, mail or slab stripper delivery. PERFORMED BY: [facility] [address] [place] [address] PATHOLOGIST DOLL SURGEON ANDREA COFFEY M.D. Performed By: #### C ALCULI #### [facility] , Photo Comment Normal . [facility] Comment on above: Result Comment: Phot ograph will follow under a separate cover Performed By: #### C ALCULI #### [facility] , Size 3x2 Normal . [facility] Comment on above: Result Comment: Mult iple pieces received. Dimensions of the largest piece reported. Performed By: #### C ALCULI #### [facility] , Source Comment Normal . [facility] Comment on above: Result Comment: Jerrod t Ureter Performed By: #### C ALCULI #### [facility] , Weight 33.0 Normal . [facility] Comment on above: Performed By: #### C ALCANJEL #### [facility] , [place] urethrocystogram retroon 06-07-2024 [place]rocyst[place] [address] Fluoroscopy Report Signed Patient: Ruperto Saravia MR#: [id number] : 1955 Acct:[id number] Age/Sex: 68 / F ADM Date: 06/07/24 Loc: [place] Room: Type: [facility] Attending Dr: Lexi Reid MD Copies to: Lexi Reid MD Ordering Provider: Lexi Reid MD Date of Service: 06/07/24 FL/FL urethrocystogram retro: RIGHT KIDNEY STONE Intraoperative study. Reason for exam: Cystoscopy with right ureteroscopy retrograde pyelogram stent placement. Findings: 5 images were obtained intraoperatively. Contrast is seen within the right collecting system with subsequent stent placement. Cumulative Air Kerma in mGy: 13 mGy FL/FL urethrocystogram retro Impression: Intraoperative study. Impression dictated by: Miguel Panda Jr., D.OCari06/07/2024 4:38 PM Dictation Location: [place] [address] Transcribed By: [facility] 06/07/241637 Dictated By: Miguel Panda Jr, DO 06/07/241637 Signed By: 06/07/241637 Normal [facility] Ovidio 06-07-2024 L Specimen: [id number] Received: 06/07/24 Status: YOSVANY Granger Num: [id number] Spec Type: Surgical Subm Dr: Lexi Reid MD Tissues: A Urinary Calculus (RIGHT URETERAL STONE) Procedures: Level 1 Gross Age/ Patient Sex Location Account Attending Physician Ruperto Saravia 68/F [place] [id number] Lexi Reid MD SPEC NUM: [id number] RECD: 06/07/24 STATUS: YOSVANY GRANGER NUM: [id number] JOHNNIE: 06/07/24- [facility] DR: Lexi Reid MD ENTERED: 06/07/[address] [facility] [address]: DIEGO TYPE: Surgical DEPT: S ENTERED BY: [id number] RECV BY: [id number] ORDERED: Level 1 Gross ORDERED: Level 1 Gross Pathological Diagnosis Right ureter stone, removal: Urinary calculus, gross examination only. Sent for chemical analysis. Clinical Information Right kidney stone ureteral stone Gross Description Part A is received fresh labeled with the patients name, date of , and R ureteral stone are multiple (at least 6), hernández-early, granular calculi fragments (0.8 x 0.3 x 0.2 cm in aggregate. The specimen is sent to [employer] for chemical analysis. LAYO TORREZ JG CPT Codes 37580 Specimen: [id number] Received: 06/07/24 Status: YOSVANY Granger Num: [id number] Spec Type: Surgical Subm Dr: Lexi Reid MD Tissues: A Urinary Calculus (RIGHT URETERAL STONE) Procedures: Level 1 Gross Patient: Ruperto Saravia [id number] (Continued) Signed (signature on file) Andrea Coffey MD 06/09/24 1338 Normal [facility] Basic Metabolic Panelon 05-20 Anion gap [Moles/Vol] 10.0 mmol/L Normal 6.0-15.0 Th e [facility] Comment on above: Performed By: #### B MP, CBC #### [address] Calcium [Mass/Vol] 9.1 mg/dL Normal 8.6-10.3 [facility] Comment on above: Result Comment: PERF ORMED BY: [place] [address] PATHOLOGIST DOLL SURGEON TIFFANIE ROSS M.D. Performed By: #### B MP, CBC #### [address] Chloride [Moles/Vol] 101 mmol/L Normal 98-107 [facility] Comment on above: Performed By: #### B MP, CBC #### [address] CO2 [Moles/Vol] 32.9 mmol/L High 21.0-31.0 [facility] Comment on above: Performed By: #### B MP, CBC #### [address] Creatinine [Mass/Vol] 0.62 mg/dL Normal 0.60-1.20 [facility] Comment on above: Performed By: #### B MP, CBC #### [place] [address] [place] GFR/1.73 sq M.predicted MDRD (S/P/Bld) [Vol rate/Area] mL/min/{1.73_m2} Normal [facility] Comment on above: Performed By: #### B MP, CBC #### [address] Glucose [Mass/Vol] 110 mg/dL High 70-100 [facility] Comment on above: Result Comment: [place] Glucose Reference Range is dependent on time and content of last meal. Glucose of more than 200 mg/dL in a nonstressed, ambulatory subject supports the diagnosis of Diabetes Mellitus. ADA recommended reference range Performed By: #### B MP, CBC #### [facility] [address] Potassium [Moles/Vol] 4.9 mmol/L Normal 3.5-5.1 [facility] Comment on above: Result Comment: Hemo lysis is present at a level that could interfere with the result. Contact lab if redraw is required Performed By: #### B MP, CBC #### [address] Sodium [Moles/Vol] 139 mmol/L Normal 136-145 [facility] Comment on above: Performed By: #### B MP, CBC #### [address] Urea nitrogen [Mass/Vol] 17 mg/dL Normal 7-25 [facility] Comment on above: Performed By: #### B MP, CBC #### [facility] [address] [place] [address] [place] Basophils Auto (Bld) [#/Vol] Ordered By: Lexi Reid on 05-31-2024 Basophils (Bld) [#/Vol] Automated basoph il count 0.0-0.2 [facility] Basophils/100 WBC Auto (Bld) Ordered By: Lexi Reid on 05-31-2024 Basophils/100 WBC (Bld) Automated basophil % . [facility] Calcium [Mass/volume] in Ser um or PlasmaOrdered By: Lexi Reid on 05-31-2024 Calcium [Mass/Vol] Calcium [Mass/volume] in Serum or Plasma 8.6-10.3 [facility] Carbon dioxide, total [Moles /volume] in Serum or PlasmaOrdered By: Lexi Reid on 05-31-2024 CO2 [Moles/Vol] Carbon dioxide, total [Moles/volume] in Serum or Plasma High 21.0-31.0 [facility] Chloride [Moles/volume] in S john or PlasmaOrdered By: Lexi Reid on 05-31-2024 Chloride [Moles/Vol] Chloride [Moles/volume] in Serum or Plasma 98-107 [facility] Complete Blood Count Auto Di ffon 05-31-2024 Basophils (Bld) [#/Vol] 0.0 10*3/uL Normal 0.0-0.2 [facility] Comment on above: Result Comment: PERF ORMED BY: [place] [address] PATHOLOGIST DOLL SURGEON TIFFANIE ROSS M.D. Performed By: #### B MP, CBC #### [address] Basophils/100 WBC (Bld) 0.5 % Normal . T rj [facility] Comment on above: Performed By: #### B MP, CBC #### [address] Eosinophils (Bld) [#/Vol] 0.1 10*3/uL Normal 0.0-0.45 [facility] Comment on above: Performed By: #### B MP, CBC #### [address] Eosinophils/100 WBC (Bld) 1.8 % Normal . [facility] Comment on above: Performed By: #### B MP, CBC #### [address] Erythrocyte distribution width (RBC) [Ratio] 13.3 % Normal 11.9-15.3 [facility] Comment on above: Performed By: #### B MP, CBC #### [address] Hematocrit (Bld) [Volume fraction] 37.7 % Normal 34.0-46.4 [facility] Comment on above: Performed By: #### B MP, CBC #### [address] Hemoglobin (Bld) [Mass/Vol] 12.9 g/dL Normal 11.8-15.4 [facility] Comment on above: Performed By: #### B MP, CBC #### [address] Lymphocytes (Bld) [#/Vol] 1.4 10*3/uL Normal 1.00-4.8 [facility] Comment on above: Performed By: #### B MP, CBC #### [address] Lymphocytes/100 WBC (Bld) 26.9 % Normal . [facility] Comment on above: Performed By: #### B MP, CBC #### [address] MCH (RBC) [Entitic mass] 32.2 pg Normal 24.7-34.3 [facility] Comment on above: Performed By: #### B MP, CBC #### [address] MCV (RBC) [Entitic vol] 94.0 fL Normal 80-100 [facility] Comment on above: Performed By: #### B MP, CBC #### [address] Mean Corpuscular HGB Conc 34.3 g/dL Normal 32.0-35.0 [facility] Comment on above: Performed By: #### B MP, CBC #### [address] Monocytes (Bld) [#/Vol] 0.4 10*3/uL Normal 0.0-0.8 [facility] Comment on above: Performed By: #### B MP, CBC #### [place] [address] [place] Monocytes/100 WBC (Bld) 8.2 % Normal . [facility] Comment on above: Performed By: #### B MP, CBC #### [address] Neutrophils (Bld) [#/Vol] 3.3 10*3/uL Normal 1.8-7.7 [facility] Comment on above: Performed By: #### B MP, CBC #### [address] [address] [place] Neutrophils/100 WBC (Bld) 62.6 % Normal . [facility] Comment on above: Performed By: #### B MP, CBC #### [address] NRBC% 0.0 /100{WBC} Normal 0-0.5 [facility] Comment on above: Performed By: #### B MP, CBC #### [address] Platelet mean volume (Bld) [Entitic vol] 7.7 fL Normal 6.3-10.7 [facility] Comment on above: Performed By: #### B MP, CBC #### [address] Platelets (Bld) [#/Vol] 290 10*3/uL Normal 150-450 [facility] Comment on above: Performed By: #### B MP, CBC #### [address] RBC (Bld) [#/Vol] 4.01 10*6/uL Normal 3.60-5.00 [facility] Comment on above: Performed By: #### B MP, CBC #### [address] WBC (Bld) [#/Vol] 5.3 10*3/uL Normal 3.8-11.6 [facility] Comment on above: Performed By: #### B MP, CBC #### [place] [address] [place] Creatinine [Mass/volume] in Serum or PlasmaOrdered By: Lexi Reid on 05-31-2024 Creatinine [Mass/Vol] Creatinine [Mass/volume] in Serum or Plasma 0.60-1.20 [facility] Eosinophils Auto (Bld) [#/Vo l]Ordered By: Lexi Reid on 05-31-2024 Eosinophils (Bld) [#/Vol] Automated eosinophil count 0.0-0.45 [facility] Eosinophils/100 WBC Auto (Bl d)Ordered By: Lexi Reid on 05-31-2024 Eosinophils/100 WBC (Bld) Automated eosinophil % . [facility] Erythrocyte distribution wid th Auto (RBC) [Ratio]Ordered By: Lexi Reid on 05-31-2024 Erythrocyte distribution width (RBC) [Ratio] Erythrocyte distribution width [Ratio] by Automated count 11.9-15.3 [facility] Glucose [Mass/volume] in Ser um or PlasmaOrdered By: Lexi Reid on 05-31-2024 Glucose [Mass/Vol] Glucose [Mass/volume] in Serum or Plasma High 70-100 [facility] Comment on above: ADA recommended refe rence rangeRandom Glucose Reference Range is dependent on time and content of last meal. Glucose of more than 200 mg/dL in a nonstressed, ambulatory subject supports the diagnosis of Diabetes Mellitus. Hematocrit Auto (Bld) [Volum e fraction]Ordered By: Lexi Reid on 05-31-2024 Hematocrit (Bld) [Volume fraction] Hematocrit [Volume Fraction] of Blood by Automated count 34.0-46.4 [facility] Hemoglobin [Mass/volume] in BloodOrdered By: Lexi Reid on 05-31-2024 Hemoglobin (Bld) [Mass/Vol] Hemoglobin [Mass/volume] in Blood 11.8-15.4 [facility] Leukocytes [#/volume] correc dodie for nucleated erythrocytes in Blood by Automated counOrdered By: Lexi Reid on 05-31-2024 WBC corrected for nucl RBC Auto (Bld) [#/Vol] Leukocytes [#/volume] corrected for nucleated erythrocytes in Blood by Automated coun 3.8-11.6 [facility] Lymphocytes Auto (Bld) [#/Vo l]Ordered By: Lexi Reid on 05-31-2024 Lymphocytes (Bld) [#/Vol] Lymphocytes [#/volume] in Blood by Automated count 1.00-4.8 [facility] Lymphocytes/100 WBC Auto (Bl d)Ordered By: Lexi Reid on 05-31-2024 Lymphocytes/100 WBC (Bld) Lymphocytes/100 leukocytes in Blood by Automated count . [facility] MCH Auto (RBC) [Entitic mass ]Ordered By: Lexi Reid on 05-31-2024 MCH (RBC) [Entitic mass] MCH [Entitic ma ss] by Automated count 24.7-34.3 [facility] MCHC Auto (RBC) [Mass/Vol]Or dered By: Lexi Reid on 05-31-2024 MCHC (RBC) [Mass/Vol] MCHC [Mass/volume] by Automated count 32.0-35.0 [facility] MCV Auto (RBC) [Entitic vol] Ordered By: Lexi Reid on 05-31-2024 MCV (RBC) [Entitic vol] MCV [Entitic vol ume] by Automated count 80-100 [facility] Monocytes Auto (Bld) [#/Vol] Ordered By: Lexi Reid on 05-31-2024 Monocytes (Bld) [#/Vol] Automated blood monocyte count 0.0-0.8 [facility] Monocytes/100 WBC Auto (Bld) Ordered By: Lexi Reid on 05-31-2024 Monocytes/100 WBC (Bld) Automated monocyte % . [facility] Neutrophils Auto (Bld) [#/Vo l]Ordered By: Lexi Reid on 05-31-2024 Neutrophils (Bld) [#/Vol] Neutrophils [#/volume] in Blood by Automated count 1.8-7.7 [facility] Neutrophils/100 WBC Auto (Bl d)Ordered By: Lexi Reid on 05-31-2024 Neutrophils/100 WBC (Bld) Automated neutrophil % . [facility] No Panel InformationOrdered By: Lexi Reid on 05-31-2024 Estimated GFR (CKD-EPI) > 60.0 mL/Min [facility] Pharmacy Creatinine Clearance (Chem N/A [facility] Nucleated erythrocytes [Pres ence] in Blood by Automated countOrdered By: Lexi Reid on 05-31-2024 Nucleated RBC Auto Ql (Bld) Nucleated erythrocytes [Presence] in Blood by Automated count 0-0.5 [facility] Platelet mean volume Auto (B ld) [Entitic vol]Ordered By: Lexi Reid on 05-31-2024 Platelet mean volume (Bld) [Entitic vol] Platelet mean volume [Entitic volume] in Blood by Automated count 6.3-10.7 [facility] Platelets Auto (Bld) [#/Vol] Ordered By: Lexi Reid on 05-31-2024 Platelets (Bld) [#/Vol] Platelets [#/vol ume] in Blood by Automated count 150-450 [facility] Potassium [Moles/volume] in Serum or PlasmaOrdered By: Lexi Reid on 05-31-2024 Potassium [Moles/Vol] Potassium [Moles/volume] in Serum or Plasma 3.5-5.1 [facility] Comment on above: Hemolysis is present at a level that could interfere with the result.Contact lab if redraw is required RBC Auto (Bld) [#/Vol]Ordere d By: Lexi Reid on 05-31-2024 RBC (Bld) [#/Vol] Erythrocytes [#/volume] in Blood by Automated count 3.60-5.00 [facility] Serum or plasma anion gap de terminationOrdered By: Lexi Reid on 05-31-2024 Anion gap [Moles/Vol] Serum or plasma anion gap determination 6.0-15.0 [facility] Sodium [Moles/volume] in Ser um or PlasmaOrdered By: Lexi Reid on 05-31-2024 Sodium [Moles/Vol] Sodium [Moles/volume] in Serum or Plasma 136-145 [facility] Urea nitrogen [Mass/volume] in Serum or PlasmaOrdered By: Lexi Reid on 05-31-2024 Urea nitrogen [Mass/Vol] Urea nitrogen [Mass/volume] in Serum or Plasma 7-25 [facility] WBC Auto (Bld) [#/Vol]Ordere d By: Lexi Reid on 05-31-2024 WBC (Bld) [#/Vol] Leukocytes [#/volume] in Blood by Automated count 3.8-11.6 [facility] ECG 12 Leadon 05-29-2024 Normal sinus rhythm at 68 bpm VA interval 144 ms QRS duration 90 ms QTc 446 ms pattern of septal myocardial infarction nonspecific ST-T abnormality no change compared to the EKG from 04/27/2024 [facility] Work Phone: Urology Office/Clinic Noteon 05-17-2024 Urology Office/Clinic Note [...] E&M of Est. Patient Moderate 30-39 Min 70092 Influenza immunization status assessed 1030F Medication list [...] Urnls Dip Stick Auto w/o Microscopy POC 05227 2. Ureteral stone with hydronephrosis (N13.2: Hydronephrosis with renal and ureteral calculous obstruction) See #1 Ordered: E&M of Est. Patient Moderate 30-39 Min 17402 Follow-up With When Contact Information ANN FORTE PA-C, URL Only if needed [address] [place] [address] Business (1) Additional Instructions: Patient Education Acute Pain, [...] Use:., 05/17/2024 (more content not included)... Normal [facility] Comment on above: Result Comment: Elec tronically Signed By: ANN FORTE PA-C\.br\Date and Time Signed: 05/17/24 13:46 EDT Ambulatory Visit Summaryon 0 04-13-2024 Ambulatory Visit Summary Ambulatory Visi t Summary RUPERTO SARAVIA :1955 Visit Date:04/13/2024 Ambulatory [...] beam o (more content not included)... Normal [facility] Urology Office/Clinic Noteon 04-13-2024 Urology Office/Clinic Note Urology Office/Clinic Note Chief Complaint 9 month follow up with KUB, CEASAR HPI Staff 68 yr old [facility] patient here for 9 month f/u w/ KUB and CEASAR. KUB and CEASAR done 04/07/24 at [facility]. Per pt one stone passed about 2 [...] nonobstructing nephr (more content not included)... Normal [facility] Comment on above: Result Comment: Elec tronically Signed By: Franklin FLOYD, Lexi Regalado\.br\Date and Time Signed: 04/13/24 12:21 EDT\.br\Electronically Co-Signed By: Andrew Marin\.br\Date and Time Co-Signed: 04/13/24 11:45 EDT\.br\Electronically Co-Signed By: Andrew Marin A\.br\Date and Time Co-Signed: 04/13/24 11:46 EDT CNOVon 03-30-2024 CNOV Office Visit (OTPREJ) RUPERTO SARAVIA ([id number]) 1955 F Date Time Provider Department 03/30/24 [...] 04/27/2024 9:37 PM Signed [facility] Name: Ruperto [...] orbicularis oculi, zygomaticus major, levator labii and finance business partner Redemonstrated severe lateral pull of upper lip [...] (2u, 2 sites) = 4 U Left finance business partner (3u, 2 site) = 6 U Left [...] either me or Dr. José Balbuena MD [facility] [place] ADDENDUM: I performed the procedure and discussed the patient's management with the fellow. I reviewed and edited the note and agree with the documented findings and treatment plan. Elizabeth Balbuena MD [facility] Hand Clerical Verifier, Facial Plastic and Microvascular Surgery UNIVERSAL PROTOCOL [...] complex tab (more content not included)... Normal [facility] Ambulatory Visit Summaryon 0 03-17-2024 Ambulatory Visit Summary Ambulatory Visi t Summary RUPERTO SARAVIA :1955 Visit Date:03/17/2024 Ambulatory [...] FLOYD, Lexi Regalado Where: [facility] [address] [place] [address] [place] [address]- You Need to Schedule the Following Appointments Follow Up with RAAD GONZALEZ, BUDDY MCKOY When: Where: [address] [place] [address] [phone] Medications What How Much When Instructions Unchanged [...] for choosing us for your care. Normal [facility] Urology Office/Clinic Noteon 03-17-2024 Urology [...] urine cx done with [place]. Urine cx 03/09/24: negative PVR: 0 ml [...] and try to get these from food. 6/8/22: 24hr Litholink: Calcium improved from 448 to [...] 6mm L nonobstructing nephrolith. No L hydro. Biddle she was passing a stone 2wks ago. [...] Lexi Regalado, URL, [facility] [address], [place] [phone] Additional Instructions: keep 04/06/24 appt Patient Education Kidney Stones, [id number] Documentation recorded by the scribe Alejandra Garcia accurately reflects the services(s) I performed and decisions made by me. Authenticated by Ann Forte PA-C on 03/17/2024 14:49:21. I, Alejandra Garcia, personally scribed for Ann Forte PA-C on 03/17/2024 13:1 (more content not included)... Normal [facility] Comment on above: Result Comment: [...] prior to appt. Pt has gone to [facility] in the past. KUB/CEASAR order faxed to [facility]. Called pt and left VM to return our call. Pt moved appointment back to 03/30/24 Normal [facility] ISTAT XRay CREon 11-03-2023 ISTAT GFR > 60.0 Normal [facility] Comment on above: Result Comment: PERF ORMED BY: [place] [address] PATHOLOGIST DOLL SURGEON TIFFANIE ROSS M.D. Performed By: #### I SCRE #### [address] MR head/brain wo/w conon MR head/brain wo/w con [facility] Main [place] [address] [place] [address] MRI Report Signed Patient: Ruperto Saravia MR#: [id number] : 1955 Acct:[id number] Age/Sex: 68 / F ADM Date: 11/03/23 Loc: MR Room: Type: [facility] Attending Dr: Shasta Wade PA-C Copies to: [...] Sanjiv Reis M.D.11/03/2023 3:10 PM Dictation Location: [place] [address] Transcribed By: [facility] 11/03/23 1510 Dictated By: Sanjiv Reis II, MD 11/03/23 1410 Signed By: 11/03/23 1510 Normal [facility] No Panel InformationOrdered By: Shasta Wade on 11-03-2023 Bedside Estimated GFR (eGFR) > 60.0 [facility] Whole blood creatinine measu rementOrdered By: Shasta Wade on 11-03-2023 Creatinine [Mass/Vol] 0.6 mg/dL Normal 0.6-1.3 [facility] Comment on above: ER/ESD physician is notified/shown all ISTAT results.Critical values may be confirmed by laboratory testing ifdeemed necessary by ER attending doctor. Result Comment: ER/E SD physician is notified/shown all ISTAT results. Critical values may be confirmed by laboratory testing if deemed necessary by ER attending doctor. Performed By: #### I SCRE #### [facility] [address] [place] [address] CNCOon 10-14-2023 CNCO Letter Text Normal [facility] CNOVon 10-09-2023 CNOV Office Visit (OTOLMN) RINRUPERTO RODRIGUEZ ([id number]) 1955 F Date Time Provider Department 10/09/23 10:00 AM ADINA HINOJOSA During your visit today, we recorded the following information about you: Adina Hinojosa MD 10/18/2023 4:43 PM Signed [facility] [place] Name: Ruperto [...] orbicularis oculi, zygomaticus major, levator labii and finance business partner - Severe lateral pull of upper lip [...] units 1 site) = 2 U Left finance business partner (3u, 2 site) = 6 U Left procerus (3u, 1 site) = 3 U Left mentalis (2u, 3 sites) 6 U Left platysma (3u, 18 x sites) = 54 units Right TAMRA (3U 1 site)=3U Right finance business partner (2U, 2 sites) = 4U Right lateral orbicularis infrabrow= 2U, 1 site=2U Right platysma (3U f7dvaew) = 9 U Total: 120 units used [...] MD Facial Plastic and Reconstructive Surgery Fellow [facility], [facility] [place] Bogdan Mirza RN 10/09/2023 10:38 AM Signed [...] disordr [M26.639] 04/24/2010 Myalgia and myositis, unspecified [[id number]] 05/07/2011 Unspecified disorder of muscle, ligament, and [...] a r (more content not included)... Normal [facility] Patient Educationon 06-24-20 Patient Education Nephrology [...] Spinach (cooked), rhubarb, beets, sweet potatoes, and Serbian chard. ? Peanuts. ? Potato chips, cymro fries, and baked potatoes with skin on. ? Nuts and nut products. ? Chocolate. ? If you regularly take a diuretic medicine, make sure to eat at least 1 or 2 servings of fruits or vegetables that are high in potassium each day. These include: ? Avocado. ? Banana. ? Meridian, prune, carrot, or tomato juice. ? Baked [...] fish oil, or vitamin B6. ? Take [id number] and prescription medicines only as told by your health care provider. These include supplements. What foods sh (more content not included)... Normal [facility] Urology Office/Clinic Noteon 06-24-2023 Urology [...] Lexi Regalado, URL, [facility] [address], [place] [phone] Additional Instructions: 6 mos w/ KUB and [...] Simple renal (more content not included)... Normal [facility] Comment on above: Result Comment: Elec tronically Signed By: Lexi Reid MD\.br\Date and Time Signed: 06/24/23 08:45 EST\.br\Electronically Co-Signed By: Alejandra Garcia\.br\Date and Time Co-Signed: 06/24/23 08:[address] ABD/PELVIS WO CONon 11-12 CT ABD/PELVIS [...] [place] Date: 2022-11-12 11:22 Normal [facility] US KIDNEYSon 07-08-2022 US KIDNEYS US KIDNEYS EXAM DATE: 07/08/2022 5:54 AM MST COMPARISON: Same day radiograph, CT abdomen and pelvis without contrast 07/31/2021 INDICATION: History of kidney stones. TECHNIQUE: Real-time ultrasound scanning of the kidneys and bladder was performed by the adhesive sprayer. Mold Mover static images are submitted for review. FINDINGS: [...] [place] Date: 2022-07-08 16:58 Normal [facility] XR KUB 1 VIEWon 12-20-2022 XR KUB 1 VIEW EXAM: XR KUB [...] [place] Date: 2022-07-08 17:05 Normal [facility] XR DEXA BONE DENSITYon 06-05 XR DEXA [...] [place] Date: 2022-06-05 12:[address] [facility] [address] FOOT RT WO CONon 02-28-20 CT [...] [place] Date: 2022-02-27 18:17 Normal [facility] T4 FREE/FREE THYROXon 2021 Free T4 [Mass/Vol] 1.0 ng/dL 0.9 - 1.7 ng/dL [facility] TSH BLDon 11-12-2021 TSH Qn 2.420 m[IU]/L 0.270 - 4.200 mIU/L [facility] Vital Signs Date Time Vital Sign Value Performing Clinician Facility 06-23-2024 12:53-0500 Diastolic blood pressure 71 mm[Hg] Lexi Lue [facility] 06-23-2024 12:53-0500 Heart rate 68 /min Lexi Lue [facility] 06-23-2024 12:53-0500 Respiratory rate 16 /min Lexi Lue [facility] 06-23-2024 12:53-0500 Systolic blood pressure 141 mm[Hg] Lexi Lue [facility] 06-07-2024 15:45-0500 Diastolic blood pressure 71 mm[Hg] Gerson Clements JR Work Phone: [facility] 06-07-2024 15:45-0500 Heart rate 76 /min Gerson Clements JR Work Phone: [facility] 06-07-2024 15:45-0500 Respiratory rate 20 /min Gerson Clements JR Work Phone: [facility] 06-07-2024 15:45-0500 SaO2% (BldA) [Mass fraction] 94 % Gerson Clements JR Work Phone: [facility] 06-07-2024 15:45-0500 Systolic blood pressure 134 mm[Hg] Gerson Clements JR Work Phone: [facility] 06-07-2024 15:00-0500 Body temperature 97.9 [degF] Gerson Clements JR Work Phone: [facility] 06-07-2024 14:25-0500 Inhaled oxygen flow rate 8 L/min Gerson Clements JR Work Phone: [facility] 06-07-2024 11:54-0500 Body height 175.26 cm Gerson Clements JR Work Phone: [facility] 06-07-2024 11:54-0500 Body weight 98 kg Gerson Clements JR Work Phone: [facility] 05-27-2024 09:43-0500 Diastolic blood pressure 74 mm[Hg] Елена Griffin MD Work Phone: [facility] 05-27-2024 09:43-0500 Heart rate 68 /min Елена Griffin MD Work Phone: [facility] 05-27-2024 09:43-0500 Systolic blood pressure 126 mm[Hg] Елена Griffin MD Work Phone: [facility] 05-27-2024 09:42-0500 Body height 175.3 cm Елена Griffin MD Work Phone: [facility] 05-27-2024 09:42-0500 Body mass index (BMI) [Ratio] 31.16 kg/m2 Елена Griffin MD Work Phone: [facility] 05-27-2024 09:42-0500 Body weight 95.71 kg Елена Griffin MD Work Phone: [facility] 05-17-2024 13:17-0400 Diastolic blood pressure 86 mm[Hg] ANN FORTE [facility] 05-17-2024 13:17-0400 Mean blood pressure 105 mm[Hg] ANN RAAD [facility] 05-17-2024 13:17-0400 Systolic blood pressure 143 mm[Hg] ANN RAAD [facility] 05-17-2024 13:13-0400 Blood Pressure Location ANN RAAD [facility] 05-17-2024 13:13-0400 Diastolic blood pressure 80 mm[Hg] ANN RAAD [facility] 05-17-2024 13:13-0400 Heart rate 74 /min ANN RAAD [facility] 05-17-2024 13:13-0400 Respiratory rate 18 /min ANN RAAD [facility] 05-17-2024 13:13-0400 Systolic blood pressure 151 mm[Hg] ANN RAAD [facility] 05-16-2024 15:36-0400 Body height 175.3 cm Shasta ONEIL Work Phone: [facility] 05-16-2024 15:36-0400 Body mass index (BMI) [Ratio] 31.9 kg/m2 Shasta ONEIL Work Phone: [facility] 05-16-2024 15:36-0400 Body weight 97.98 kg Shasta ONEIL Work Phone: [facility] 05-16-2024 15:36-0400 Diastolic blood pressure 74 mm[Hg] Shasta ONEIL Work Phone: [facility] 10-28-2024 15:36-0400 Heart rate 81 /min Shasta Wade PA Work Phone: [facility] 05-16-2024 15:36-0400 Respiratory rate 16 /min Shasta Wade PA Work Phone: [facility] 05-16-2024 15:36-0400 SaO2% (BldA) [Mass fraction] 92 % Shasta Wade PA Work Phone: [facility] 05-16-2024 15:36-0400 Systolic blood pressure 120 mm[Hg] Shasta Wade PA Work Phone: [facility] 04-13-2024 10:56-0400 Diastolic blood pressure 76 mm[Hg] Lexi Lue [facility] 04-13-2024 10:56-0400 Heart rate 68 /min Lexi Lue [facility] 04-13-2024 10:56-0400 Respiratory rate 16 /min Lexi Lue [facility] 04-13-2024 10:56-0400 Systolic blood pressure 118 mm[Hg] Lexi Lue [facility] 04-12-2024 12:47-0400 Blood Pressure Location Lexi Lue [facility] 04-12-2024 12:47-0400 Diastolic blood pressure 76 mm[Hg] Lexi Lue [facility] 04-12-2024 12:47-0400 Heart rate 68 /min Lexi Lue [facility] 04-12-2024 12:47-0400 Respiratory rate 16 /min Lexi Lue [facility] 04-12-2024 12:47-0400 Systolic blood pressure 118 mm[Hg] Lexi Lue [facility] 03-17-2024 13:16-0400 Diastolic blood pressure 82 mm[Hg] ANN RAAD [facility] 03-17-2024 13:16-0400 Mean blood pressure 108 mm[Hg] ANN RAAD [facility] 03-17-2024 13:16-0400 Systolic blood pressure 160 mm[Hg] ANN RAAD [facility] 03-17-2024 12:51-0400 Blood Pressure Location ANN RAAD [facility] 03-17-2024 12:51-0400 Diastolic blood pressure 82 mm[Hg] ANN RAAD [facility] 03-17-2024 12:51-0400 Heart rate 80 /min ANN RAAD [facility] 03-17-2024 12:51-0400 Respiratory rate 16 /min ANN RAAD [facility] 03-17-2024 12:51-0400 Systolic blood pressure 160 mm[Hg] ANN RAAD [facility] 11-03-2023 11:21-0400 Body height 175.26 cm JR Gerson Clements Work Phone: [facility] 11-03-2023 11:21-0400 Body weight 97.52 kg JR Gerson Valone Work Phone: [facility] 11-26-2022 07:56-0400 Blood Pressure Location Lexi Lue [facility] 11-26-2022 07:56-0400 Diastolic blood pressure 67 mm[Hg] Lexi Lue [facility] 11-26-2022 07:56-0400 Heart rate 62 /min Lexi Lue [facility] 11-26-2022 07:56-0400 Systolic blood pressure 113 mm[Hg] Lexi Lue [facility] 01-15-2022 10:13-0400 Blood Pressure Location Lexi Lue [facility] 01-15-2022 10:13-0400 Diastolic blood pressure 73 mm[Hg] Lexi Lue [facility] 01-15-2022 10:13-0400 Heart rate 70 /min Lexi Lue [facility] 01-15-2022 10:13-0400 Respiratory rate 16 /min Lexi Lue [facility] 01-15-2022 10:13-0400 Systolic blood pressure 122 mm[Hg] Lexi Lue [facility] 11-12-2021 10:56-0400 Body height 175.3 cm Shawna Card MD, PhD Work Phone: [facility] 11-12-2021 10:56-0400 Body weight 98.88 kg Shawna Card MD, PhD Work Phone: [facility] 11-12-2021 10:56-0400 Diastolic blood pressure 74 mm[Hg] Shawna Card MD, PhD Work Phone: [facility] 11-12-2021 10:56-0400 Heart rate 64 /min Shawna Card MD, PhD Work Phone: [facility] 11-12-2021 10:56-0400 Systolic blood pressure 128 mm[Hg] Shawna Card MD, PhD Work Phone: [facility] Encounters Encounter Date Encounter Type Care Provider Facility Start: 06-23-2024 ambulatory Lexi Reid Facility:[facility] Start: 06-23-2024 End: 06-23-2024 Patient encounter procedure Lexi Reid [facility] Start: 06-07-2024 End: 06-07-2024 Admission to same day surgery center Gerson Clements JR Work Phone: [facility] [place] Start: 06-07-2024 End: 06-07-2024 ambulatory Gerson Clements JR Work Phone: [facility] Work Phone: Start: 06-07-2024 End: 06-07-2024 ambulatory Lexi Reid Facility:CD:[id number] Start: 05-31-2024 End: 05-31-2024 Patient encounter procedure Gerson Clements JR Work Phone: [facility] Work Phone: Start: 05-31-2024 End: 05-31-2024 ambulatory Gerson Clements JR Work Phone: [facility] Work Phone: Start: 05-31-2024 Encounter for preprocedural laboratory examination Lexi Reid [facility] Start: 05-27-2024 End: 05-27-2024 Office consultation new/estab patient 60 min Елена Griffin MD Work Phone: [facility] Comment on above: Preoperative cardiov ascular examination; Mixed hyperlipidemia; Acquired hypothyroidism; Tremor; BMI 31.0-31.9,adult; Former smoker Start: 05-27-2024 End: 05-27-2024 Patient encounter status Елена Griffin MD Work Phone: [facility] Start: 05-27-2024 End: 05-27-2024 ambulatory [facility] Start: 05-27-2024 End: 05-27-2024 Encounter for preprocedural cardiovascular examination [facility] Start: 05-17-2024 End: 05-17-2024 ambulatory ANN FORTE Facility:[facility] Start: 05-17-2024 End: 05-17-2024 Patient encounter procedure ANN FORTE [facility] Start: 05-16-2024 End: 05-16-2024 Office outpatient visit 15 minutes Shasta ONEIL Work Phone: [facility] [address] Comment on above: AVM (arteriovenous m alformation) (Primary Dx); Hallucination, hypnopompic; History of stroke; Migraine without aura and without status migrainosus, not intractable (CMS/HCC); Trigeminal neuralgia (CMS/HCC); Anxiety disorder, unspecified type Start: 05-16-2024 End: 05-16-2024 ambulatory SHASTA WADE Not Available Start: 05-16-2024 End: 05-16-2024 Bamboo flowsheet Shasta ONEIL Work Phone: [facility] [address] Start: 05-16-2024 End: 05-16-2024 Bamboo flowsheet Shasta ONEIL Work Phone: [facility] Start: 05-11-2024 End: 05-11-2024 ambulatory Lexi PoojaCari Franklin Facility:[facility] Start: 05-11-2024 End: 05-11-2024 Off-Site Lexi Fabricio Reid [facility] Start: 04-27-2024 Non-patient / Non-visit Jarvis Clements JR Work Phone: [facility] Work Phone: Start: 04-13-2024 End: 04-13-2024 ambulatory Lexi MCari Franklin Facility:[facility] [place] Start: 04-13-2024 End: 04-13-2024 Patient encounter procedure Lexiyogesh Reid [facility] Start: 04-08-2024 End: 04-08-2024 ambulatory Lexi Reid Facility:[facility] [place] Start: 04-08-2024 End: 04-08-2024 Patient encounter procedure Lexi Reid [facility] Start: 04-06-2024 ambulatory Lexi Durankonrad Facility:[facility] [place] Start: 03-30-2024 End: 03-30-2024 ambulatory GERSON CLEMENTS JR Facility:[facility] Start: 03-30-2024 End: 03-30-2024 Patient encounter procedure Elizabeth Balbuena MD Work Phone: [facility] Comment on above: Facial paralysis (Pr imary Dx); Facial nerve motor disorder Start: 03-17-2024 End: 03-17-2024 ambulatory ANN FORTE Facility:[facility] Start: 03-17-2024 End: 03-17-2024 Patient encounter procedure ANN FORTE [facility] [place] Start: 02-25-2024 End: 02-25-2024 ambulatory SHASTA REMIGIO Not Available Start: 02-02-2024 End: 02-02-2024 ambulatory MICHAEL ODOMER Not Available Start: 01-28-2024 End: 01-28-2024 ambulatory MICHAEL A FELTER Not Available Start: 01-11-2024 End: 01-11-2024 ambulatory GABRIEL CRUZEMANI Not Available Start: 12-28-2023 End: 12-28-2023 ambulatory SHASTA WADE Not Available Start: 12-10-2023 End: 12-10-2023 ambulatory SHASTA WADE Not Available Start: 11-12-2023 End: 11-12-2023 ambulatory SHASTA WADE Not Available Start: 11-03-2023 End: 11-03-2023 Patient encounter procedure JR Nieto Jeannabrandy Work Phone: [facility] [place] Work Phone: Start: 11-03-2023 End: 11-03-2023 ambulatory JR Gerson Clements Work Phone: [facility] Work Phone: Start: 10-09-2023 End: 10-09-2023 ambulatory GERSON CLEMENTS JR Facility:[facility] Start: 08-24-2023 End: 08-24-2023 ambulatory JR Gerson Clements Work Phone: [facility] Work Phone: Start: 08-24-2023 End: 08-24-2023 Patient encounter procedure JR Nieto Lisa Work Phone: [facility] [place] Work Phone: Start: 08-06-2023 End: 08-06-2023 ambulatory MICHAEL Marleny FELTER Not Available Start: 06-24-2023 End: 06-24-2023 ambulatory Lexi Reid Facility:[facility] Start: 06-24-2023 End: 06-24-2023 Patient encounter procedure Lexi Reid [facility] Start: 04-10-2023 End: 04-10-2023 Patient encounter procedure Adina Hinojosa MD Work Phone: Otolaryngology Comment on above: Facial paralysis (Pr imary Dx) Start: 11-26-2022 End: 11-26-2022 Patient encounter procedure Lexi Reid [facility] Start: 11-12-2022 End: 11-13-[address] ARMANDO HOLLINGSWORTH Facility:[facility] Start: 09-10-2022 ambulatory Elizabeth Balbuena MD Work Phone: [facility] Start: 09-10-2022 Patient encounter procedure Elizabeth Balbuena MD Work Phone: [facility] Comment on above: Botox Appointment Start: 07-23-2022 End: 07-23-2022 Patient encounter procedure Lexi Reid [facility] Start: 07-08-2022 End: 07-09-2022 ambulatory LEXI Alcala Facility:[facility] Start: 06-05-2022 End: 06-06-[address] GERSON CLEMENTS Facility:[facility] Start: 05-16-2022 End: 05-16-2022 Patient encounter procedure Elizabeth Balbuena MD Work Phone: [facility] Comment on above: Facial nerve motor d isorder (Primary Dx) Start: 02-27-2022 End: 02-28-2022 ambulatory VINCENT BURCIAGA Facility:[facility] Start: 02-19-[address] GERSON CLEMENTS [facility] ity:[facility] Start: 01-15-2022 End: 01-15-2022 Patient encounter procedure Lexi Reid [facility] Start: 12-25-2021 End: 12-26-2021 ambulatory ALHAJI Reis [facility] Facility:[facility] Start: 12-13-2021 End: 12-13-2021 Patient encounter [...] 11-23-2020 End: 11-23-2020 Patient encounter procedure Gerson Lisa Work Phone: - Breast Care Procedures Date Procedure Procedure Detail Performing Clinician Start: 06-23-2024 Cystoscopic removal of ureteric stent Lexi Franklin Start: 06-07-2024 Cystoscopy Gerson jones JR Work Phone: Start: 05-27-2024 Ecg routine ecg w/le ast 12 lds w/i&r Елена Griffin MD Work Phone: Start: 11-03-2023 MRI of head JR Gerson Clements Work Phone: Start: 11-07-2021 Mammography [facility] ONE[facility] Work Phone: Start: 11-23-2020 Screening mammograph y of bilateral breasts Gerson Clements Work Phone: Start: 10-19-2003 Procedure on brain Nasreen y Reneee Ankle region structu re (body structure) Lexi Franklin Procedure on eye Lexi Franklin Plan of Treatment Date Care Activity Detail Author Start: 09-24-2031 RSV High Risk: (Elde rly (60+) or Population) (1 - 1-dose 75+ series) RSV High Risk: (Elderly (60+) or Population) (1 - 1-dose 75+ series) [facility] Start: 09-24-2031 RSV Vaccine (1 - 1-d ose 75+ series) RSV Vaccine (1 - 1-dose 75+ series) [facility] Start: 05-18-2027 Screening for malign ant neoplasm of colon [facility] Start: 09-06-2024 End: 09-06-2024 Patient encounter procedure 09/06/2024 1:20 PM EST Office Visit [facility] [place] [address] [place] [id number] Emilia Cervantes PA [address] [place], [place] [id number] [facility] [place] [facility] Start: 06-07-2024 End: 06-07-2024 [facility] Start: 05-27-2024 End: 05-27-2025 CT for calcium scoring WO contrast and CTA W contrast IV Heart and coronary arteries CT cardiac scoring wo IV contrast Imaging Routine Mixed hyperlipidemia Expected: 05/27/2024 (Approximate), Expires: 05/27/2025 [facility] Service Area Work Phone: Comment on above: Expected: 05/27/2024 (Approximate), Expires: 05/27/2025 Start: 05-16-2024 End: 05-16-2024 Patient encounter procedure 05/16/2024 3:40 PM EDT Office Visit [facility] [place] [address] [place] [address] Shasta Wade PA [address] [place], [place] [id number] Arrived [facility] [address] Comment on above: Arrived Start: 04-24-2024 Screening for malign ant neoplasm of colon [facility] Start: 03-20-2024 Covid-19 Vaccine ( season) Covid-19 Vaccine ( season) [facility] Start: 03-20-2024 Influenza vaccination Influenza Vacc ine (#1) [facility] Start: 07-20-2023 Advance Directive Discussion Advance Directive Discussion [facility] Start: 03-20-2023 Influenza vaccination Influenza Vacc ine (#1) [facility] Start: 11-07-2022 Screening for malign ant neoplasm of breast [facility] Start: 07-20-2022 ADVANCE DIRECTIVE DISCUSSION ADVANCE DIRECTIVE DISCUSSION [facility] Start: 07-20-2022 DEPRESSION ASSESSMENT DEPRESSION ASS ESSMENT [facility] Start: 03-20-2022 Influenza vaccination C [facility] Start: 10-31-2021 COVID-19 VACCINE (4 - Booster for Pfizer series) COVID-19 VACCINE (4 - Booster for Pfizer series) [facility] Start: 2021 ADVANCE DIRECTIVE DISCUSSION ADVANCE DIRECTIVE DISCUSSION [facility] Start: 2021 BONE DENSITY BONE DENSITY [facility] Start: 2021 Bone Density Screening Bone Density Screening [facility] Start: 2021 Pneumococcal Vaccine : 65+ (1 - PCV) Pneumococcal Vaccine: 65+ (1 - PCV) [facility] Start: 2021 Pneumococcal Vaccine : 65+ (1 of 1 - PCV) Pneumococcal Vaccine: 65+ (1 of 1 - PCV) [facility] Start: 2021 Pneumococcal Vaccine : 65+ Years (1 of 1 - PCV) Pneumococcal Vaccine: 65+ Years (1 of 1 - PCV) [facility] Start: 2021 PNEUMOCOCCAL: 65+ (1 - PCV) PNEUMOCOCCAL: 65+ (1 - PCV) [facility] Start: 2021 PNEUMOVAX AGE 65 AND OVER WITH 5YR LOOKBACK (#1) PNEUMOVAX AGE 65 AND OVER WITH 5YR LOOKBACK (#1) [facility] Start: 2021 Screening for osteoporosis Bone Density Screening [facility] Start: 08-27-2021 COVID-19 VACCINE (4 - Booster for Pfizer series) COVID-19 VACCINE (4 - Booster for Pfizer series) [facility] Start: 08-27-2021 Covid-19 Vaccine (4 - Pfizer series) Covid-19 Vaccine (4 - Pfizer series) [facility] Start: 07-20-2021 DEPRESSION ASSESSMENT DEPRESSION ASS ESSMENT [facility] Start: 12-24-2012 DIABETES SCREEN DIABETES SCREEN [facility] Start: 12-24-2012 Diabetes Screening Diabetes Screenin g [facility] Start: 2006 SHINGRIX VACCINE (1 of 2) SHINGRIX VACCINE (1 of 2) [facility] Start: 2006 Zoster Vaccines (1 o f 2) Zoster Vaccines (1 of 2) [facility] Start: 2001 COLOGUARD (FIT-DNA) COLOGUARD (FIT-D NA) [facility] Start: 2001 Colonoscopy COLONOSCOPY [facility] Start: 2001 COLORECTAL CANCER SCREENING COLORECTAL CANCER SCREENING [facility] Start: [address] COLONOGRAPHY [facility] Start: 2001 FECAL OCCULT BLOOD FECAL OCCULT BLOO D [facility] Start: 2001 Lipid 1996 panel - Serum or Plasma Lipid Screening [facility] Start: 2001 Lipid panel Lipid Screening [facility] Start: 2001 LIPID SCREEN LIPID SCREEN [facility] Start: 2001 Screening for malign ant neoplasm of colon [facility] Start: 2001 SIGMOIDOSCOPY SIGMOIDOSCOPY [facility] Start: 1996 Mammography [facility] Start: 1978 DTaP/Tdap/Td Vaccine s (1 - Tdap) DTaP/Tdap/Td Vaccines (1 - Tdap) [facility] Start: 09-24-1975 Urine microalbumin profile [facility] Start: 1974 Depression Screening Depression Scre ening [facility] Start: 1974 Diabetes mellitus screening Diabetes Screening [facility] Start: 1974 HEPATITIS C SCREENING HEPATITIS C [facility] Start: 1974 Hepatitis C screening Hepatitis C [facility] Start: 1974 HIV SCREENING HIV SCREENING [facility] Start: 1968 Adult depression screening assessment DEPRESSION SCREENING [facility] Start: 1956 Lipid panel Lipid Panel [facility] Start: 1956 Medicare Annual Wellness Visit Medicare Annual Wellness Visit (AWV) [facility] Start: 1956 Screening for malign ant neoplasm of colon [facility] Start: 1956 Screening for osteoporosis Bone Density Scan [facility] Start: 1956 Thyroid stimulating hormone measurement TSH Level [facility] Patient Education Ureteroscopy U reteral Stent (DC) Laser Lithotripsy for Kidney Stones (DC) Know your Meds [facility] Work Phone: Patient referral [facility] Work Phone: [facility] Immunizations Immunization Date Immunization Notes Care Provider Fa cili 07-02-2021 SARS-CoV-2 (COVID-19 ) mRNA BNT-162b2 vax Lexi Lue [facility] 01-08-2021 SARS-CoV-2 (COVID-19 ) mRNA BNT-162b2 vax Lexi Lue [facility] 10-08-2020 SARS-CoV-2 (COVID-19 ) mRNA BNT-162b2 vax Lexi Lue [facility] 07-20-2020 SARS-CoV-2 (COVID-19 ) mRNA BNT-162b2 vax Lexi Lue [facility] Payers Date Payer Category Payer Self-pay [id number] 2023 Unknown [id number] 2017 Private Health Insurance [facility] UMR CHOICE PLUS [id number] 2017-Present [phone] [address] [address] [place] [address] [facility] [id number]. [id number] 2017 Private Health Insurance [id number]. [id number] 2012 Unknown DENTAL DENTAL GE NERIC [id number] 2012-Present [phone] [address] [address] [place] [address] Dental [id number]. [id number] 2005 Medicare MEDICARE MEDICAR E A AND B [id number] 2005-Present [phone] [address] [address] [place] [address] Medicare [id number]. [id number] 2005 Medicare [id number] 1.13.159.2. [id number] 1959 Medicare [id number] 1959 Private Health Insurance [id number] 1956 Unknown [id number] 2.16.840.1.846964.3.579.2. 593 1956 Unknown [id number] .16.840.1.205965.3.579.2. 593 1956 Unknown [id number] 2.16.840.1.834004.3.579.2. 593 1956 Unknown [id number] 2.16.840.1.273437.3.579.2. 593 1956 Unknown [id number] 2.16.840.1.242365.3.579.2. 593 1956 Unknown [id number] 2.16.840.1.597729.3.579.2. 593 1956 Unknown [id number] 2.16.840.1.225296.3.579.2. 1259 1956 Unknown [id number] 2.16.840.1.971131.3.579.2. 1259 1956 Unknown [id number] 2.16.840.1.673453.3.579.2. 1259 1956 Unknown [id number] 2.16.840.1.155599.3.579.2. 1259 1956 Unknown [id number] 2.16.840.1.116970.3.579.2. 1259 1956 Unknown [id number] 2.16.840.1.278265.3.579.2. 1258 1956 Unknown [id number] 2.16.840.1.204544.3.579.2. 9 1956 Unknown [id number] 2.16.840.1.599915.3.579.2. 1258 1956 Unknown [id number] 2.16.840.1.588053.3.579.2. 1259 1956 Unknown [id number] 2.16.840.1.999008.3.579.2. 1244 1956 Unknown [id number] 2.16.840.1.169728.3.579.2. 727 1956 Unknown [id number] 2.16.840.1.382374.3.579.2. 727 1956 Unknown [id number] 2.16.840.1.204869.3.579.2. 727 1956 Unknown [id number] 2.16.840.1.185024.3.579.2. 727 1956 Unknown [id number] 2.16.840.1.421255.3.579.2. 727 1956 Unknown [id number] 2.16.840.1.070105.3.579.2. 727 1956 Unknown [id number] 2.16.840.1.198478.3.579.2. 727 1956 Unknown [id number] .16.840.1.640744.3.579.2. 727 Medicare Self Pay [id number] Unknown [id number] Unknown [id number] 2.16.840.1.395045.3.579.2. 531 Unknown [id number] 2..840.1.144708.3.579.2. 531 Unknown [id number] 2..840.1.075237.3.579.2. 531 Social History Date Type Detail Facility Tobacco smoking stat [facility] Unknown if ever smoked [facility] Start: 1955 Sex Assigned At Female [facility] Start: 09-18-2021 End: 06-23-2024 Tobacco smoking status NHIS Ex-smoker [facility] Start: 07-20-1981 End: 07-20-1999 History of tobacco use Current smoker [facility] Start: 07-20-1981 End: 07-20-1999 History of tobacco use Cigarette Smoker [facility] Start: 11-12-2021 End: 10-09-2023 Alcohol intake Current non-drinker of alcohol (finding) [facility] Start: 1955 Sex Assigned At Not on file C [facility] Start: 11-02-2021 End: 05-27-2024 Exposure to SARS-CoV-2 (event) Not sure [facility] Start: 04-10-2023 End: 05-27-2024 Sex Assigned At Female [facility] Start: 05-16-2022 End: 05-27-2024 Cigarettes smoked current (pack per day) - Reported 1.5 [facility] Start: 05-16-2022 End: 05-27-2024 Tobacco use and exposure Smokeless tobacco non-user [facility] National Score (1-10 0), lower number is lower risk 87 [facility] Start: 12-12-2021 Gender identity Identifies as female gender (finding) [facility] Start: 02-25-2024 End: 05-16-2024 Alcoholic beverage intake [...] Caffine intake :4+ cups daily [facility] Start: 05-27-2024 Alcoholic beverage intake Ex-drinker (finding) [facility] Work Phone: Start: 06-01-2024 End: 06-07-2024 Sex Patient sex unknown (finding) [facility] Medical Equipment Procedure Code Equipment Code Equipment Origin al Text Equipment Identifier Dates Gold Kaylan Marrero 1.0g - [id number] Start: 12-24-2009 Goals Date Patient Goal Desired Activity /State Functional Status Date Assessment Result Facility 06-23-2024 Functional Status N/A [facility] 05-17-2024 Functional Status N/A [facility] 04-13-2024 Functional Status N/A [facility] 04-12-2024 Functional Status [facility] 03-17-2024 Functional Status N/A [facility] 06-24-2023 Functional Status N/A [facility] 11-26-2022 Functional Status N/A [facility] 07-23-2022 Functional Status N/A [facility] 01-15-2022 Functional Status N/A [facility] Clinical Notes 11-12-2021 to 06-23-2024 Елена Griffin MD - 05/27/2024 10:00 AM ESTPatient THAD Hummel - 05/16/2024 3:40 PM EDElizabeth Beaulieu MD - 04/03/2024 6:09 PM Paulina Garcia RN - 03/30/2024 11:30 AM EDT Note Date & Type Note Facility 06-23-2024 Hospital Discharge instructions Patient Education 06/23/2024 12:59:53 Dietary Guidelines to Help Prevent Kidney Stones [...] include: ?8 oz (237 mL) of milk, bgzgqmr-govyjyzzeiqu-odnki milk, and calcium-fortifiedfruit juice. Calcium-fortified means that [...] ?Spinach (cooked), rhubarb, beets, sweet potatoes, and Serbian chard. ?Peanuts. ?Potato chips, cymro fries, and baked potatoes with skin on. ?Nuts and nut products. ?Chocolate. If you regularly take a diuretic medicine, make sure to eat at least 1 or 2 servings of fruits or vegetables that are high in potassium each day. These include: ?Avocado. ?Banana. ?Meridian, prune, carrot, or tomato juice. ?Baked potato. [...] magnesium, fish oil, or vitamin B6. Take [id number]-[id number] and prescription medicines only as told by [...] Casseroles. Pizza. Lasagna. Frozen meals. Potato chips. German fries. The items listed above may not [...] provider. Document Revised: 10/16/2022 Document Reviewed: 10/16/2022 [employer] Patient Education 2023 [employer]. Follow Up Care 06/08/2024 14:17:58 With:Franklin FLOYD, BUDDY Garcia, URO Address: When: Unknown [facility] 06-07-2024 Hospital Discharge instructions Additional Instructions Take Tylenol 650-1000 mg every 6 hours, alternate with ibuprofen 400-800mg every 6 hours in between for pain relief. Tamsulosin daily for stent discomfort. Take at night if you get dizzy or lightheaded, stop if unable to tolerate. Oxybutynin as needed for bladder spasms/stent pain. May cause dry mouth/eyes and constipation. Take stool softeners. You can buy AZO (phenazopyridine) [id number] and use as needed for burning with urination. This will make your urine orange. Drink plenty of water and fluids Take antibiotics the morning of stent removal in 2 weeks. You must follow up to ensure your stent is removed. Failure to do so may result in recurrent infections and renal failure. You have had anesthesia for your procedure so you may not drive for 24-hours or operate any heavy machinery or make any important decisions or sign any legal documents for the next 24-hours also. [facility] Work Phone: 05-27-2024 History of Present illness Narrative Referred by Dr. Gerson Clements for New Patient Visit (Abnormal EKG ) History Of Present Illness: Ruperto Saravia is a 68 y.o. female presenting with her to the office. She is here for preoperative cardiac risk assessment, she is in need of lithotripsy. She has multiple comorbidities which are as noted below. She has had a prior stroke with left-sided weakness. 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 EKG from 05/11/2024 was reviewed. It appears that she does more than 4 METS of activity on a regular basis. She has occasional blurred vision. She also complains of anterior chest tightness that comes and goes without provocation, does not radiate to the neck arm or jaw, not always related to activity. She denies palpitations. Her EKG shows abnormal R wave progression and nonspecific ST-T abnormality. There is no change compared to the EKG from April 2024. Subsequent chart review identified that she had a Lexiscan Myoview done in April 2024. Initially the report was not available. Subsequently the result was made available, it was reviewed, perfusion is normal. 12 point review of systems is negative or noncontributory except as noted, particularly with respect to cardiac status she has issues with ambulation related to the prior stroke, she has issues with blurred vision Past Medical History:( as incorporated from prior notes in the chart) She has a past medical history of Kidney stones. 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/2009 Coordination impairment BRAIN SX - 2009 Degenerative disc disease, cervical 02/08/2010 Degenerative disc disease, lumbar 01/30/2014 Depression ([facility]) 02/09/2008 Dizziness 08/11/2018 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 H/O section H/O eye surgery right; 2006, 2007 Hemangioma 08/09/2009 History of medical problems thyroid Lack of coordination 01/25/2008 Migraine ([facility]) 05/26/2017 Neck pain 08/11/2018 Other disorders of facial nerve 02/09/2008 Panic attacks ([facility]) Sleep disturbance 01/05/2013 Snoring 07/16/2015 Stroke ([facility]) 05/26/2017 Tension type headache 08/11/2018 Trigeminal neuralgia ([facility]) 10/20/2014 Past Surgical History: Procedure Laterality Date ANKLE SURGERY Right 2020 BRAIN SURGERY 10/2008 BRAIN STEM BRAIN SURGERY 2009 tumor removal CLOSED REDUCTION WRIST FRACTURE EYE MUSCLE SURGERY Left EYE SURGERY Right 08/2016 eyebrow muscle lift EYE SURGERY eyefacial tendon repair FACIAL COSMETIC SURGERY HM MAMMOGRAPHY 11/23/2020 wnl IR INJECTION BOTOX MUSCLE Right botox right eye ORIF ANKLE FRACTURE Left [address] TRUJILLO OTHER SURGICAL HISTORY surgical repair OTHER SURGICAL HISTORY 06/2007 reinervation OTHER SURGICAL HISTORY brain stem surgery PAP SMEAR 10/06/2018 wnl SHOULDER SURGERY Left 2016 TENDON TRANSFER temporalis US GUIDED THYROID BIOPSY 04/21/2018 US GUIDED THYROID BIOPSY US GUIDED THYROID BIOPSY 06/01/2018 US GUIDED THYROID BIOPSY 06/01/2018 Past Surgical History: She has a past surgical history that includes Brain surgery (2008); Facial cosmetic surgery (2009); Eye surgery; and Ankle surgery (2017). Social History: She reports that she has quit smoking. Her smoking use included cigarettes. She has never used smokeless tobacco. She reports that she does not currently use alcohol. She reports that she does not use drugs. Family History: Family History Problem Relation Name Age of Onset Valvular heart disease Brother Other (pacemaker) Brother Allergies: Patient has no known allergies. Outpatient Medications: Current Outpatient Medications Medication Instructions FLUoxetine (PROZAC) 20 mg, Daily RT levothyroxine (SYNTHROID, LEVOXYL) 25 mcg, Daily meloxicam (Mobic) 15 mg tablet 1 tablet, Daily (629) propranolol (INDERAL) 60 mg, oral, Nightly PRN Last Recorded Vitals: Vitals: 05/27/24 0942 05/27/24 0943 BP: 132/78 126/74 BP Location: Right arm Left arm Patient Position: Sitting Sitting Pulse: 68 Weight: 95.7 kg (211 lb) Height: 1.753 m (5' 9 ) Physical Exam: GENERAL APPEARANCE: Well developed, well nourished, in no acute distress. CHEST: Symmetric and non-tender. INTEGUMENT: Skin warm and dry, without gross excoriationis or lesions. HEENT: No gross abnormalities, no jugular venous distention no carotid bruit or scleral icterus NECK: Supple, no JVD, no bruit. Thyroid not palpable. Carotid upstrokes normal. NEURO/PSHCY: Alert and oriented x3;behavior and responses and responses, with left facial droop and left hemiparesis LUNGS: Clear to auscultation bilaterally; normal respiratory effort. HEART: Rate and rhythm regular with no evident murmur; no gallop appreciated. There are no rubs, clicks or heaves. ABDOMEN: Soft, nontender, no masses or bruits. MUSCULOSKELETAL: No obvious deformity identified EXTREMITIES: Warm There is no edema noted. PERIPHERAL VASCULAR: Pulses present and equally palpable; 2+ throughout. Labs reviewed today : From January 2024-sodium 141 potassium 4.3 creatinine 0.64 GFR greater than 60 liver enzymes normal total cholesterol 207 HDL 50 LDL 139 hemoglobin 13.8 hematocrit 42 platelets 234- Hemoglobin A1c 5.5 Assessment/Plan 1. Preoperative cardiovascular examination ECG 12 Lead 2. Mixed hyperlipidemia CT cardiac scoring wo IV contrast 3. Acquired hypothyroidism 4. Tremor 5. BMI 31.0-31.9,adult 6. Former smoker Chest discomfort-chronic symptom, Lexiscan Myoview April 2024 without evidence of ischemia. From a cardiac perspective risk-benefit favors proceeding with surgery as planned. Ongoing risk factor modification as directed by Dr. Clements Dynamic nature of coronary artery disease was discussed, patient should seek prompt medical attention if she were to develop new symptoms Thank you for allowing me to participate in Ruperto's care, please do not hesitate to call if further questions arise, Sincerely, Елена Griffin MD [facility] Provider Attestation - Scribe documentation All medical record entries made by the Scribe were at my direction and personally dictated by me. I have reviewed the chart and agree that the record accurately reflects my personal performance of the history, physical exam, discussion and plan. documented in this encounter [facility] Work Phone: 05-27-2024 Instructions Izzy Stevens LPN - 05/27/2024 10:00 AM EST Please bring all medicines, vitamins, and herbal supplements with you when you come to the office. Prescriptions will not be filled unless you are compliant with your follow up appointments or have a follow up appointment scheduled as per instruction of your physician. Refills should be requested at the time of your visit. Ruperto Saravia is clear for surgery from a cardiac standpoint Follow up ordered as needed only documented in this encounter [facility] Work Phone: 05-17-2024 Hospital Discharge instructions Patient Education 05/17/2024 [...] Follow these instructions at home: Medicines Take bsmj-emz-nywtnmv and prescription medicines only as told by [...] pain is severe. ?Do not take other lxqa-zbv-dinufix pain medicines in addition to prescription pain [...] to keep your urine pale yellow. Take dpew-kfq-kskhuat or prescription medicines. Eat foods that are [...] provider. Document Revised: 01/28/2023 Document Reviewed: 01/28/2023 [employer] Patient Education 2023 [employer]. Follow Up Care 05/16/2024 13:01:03 With:RAAD GONZALEZ, ANN Silvestre, URL Address: [address] [place] [place] [address] Business (1) When: only if needed [facility] 05-17-2024 Note Patient Education Orthopedics Acute Pain, [...] these instructions at home: Medicines ??? Take fvxz-rii-ertfjpq and prescription medicines only as told by [...] is severe. ? Do not take other ruib-sek-vgcrlkn pain medicines in addition to prescription pain [...] keep your urine pale yellow. ??? Take xsba-kqd-uejbjse or prescription medicines. ??? Eat foods that [...] provider. Document Revised: 01/28/2023 Document Reviewed: 01/28/2023 [employer] Patient Education ? 2023 [employer]. [facility] 05-16-2024 History of Present illness Narrative Subjective Ruperto Saravia is a 68 y.o. 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 Coordination impairment BRAIN SX - 2009 Degenerative disc disease, cervical 02/08/2010 Degenerative disc disease, lumbar 01/30/2014 Depression ([facility]) 02/09/2008 Dizziness 08/11/2018 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 H/O section H/O eye surgery right; 2006, 2007 Hemangioma 08/09/2009 History of medical problems thyroid Lack of coordination 01/25/2008 Migraine ([facility]) 05/26/2017 Neck pain 08/11/2018 Other disorders of facial nerve 02/09/2008 Panic attacks ([facility]) Sleep disturbance 01/05/2013 Snoring 07/16/2015 Stroke (CMS/HCC) 05/26/2017 Tension type headache 08/11/2018 Trigeminal neuralgia (CMS/HCC) 10/20/2014 Past Surgical History: Procedure Laterality Date ANKLE SURGERY Right 2020 BRAIN SURGERY 10/2008 BRAIN STEM BRAIN SURGERY 2009 tumor removal CLOSED REDUCTION WRIST FRACTURE EYE MUSCLE SURGERY Left EYE SURGERY Right 08/2016 eyebrow muscle lift EYE SURGERY eyefacial tendon repair FACIAL COSMETIC SURGERY HM MAMMOGRAPHY 11/23/2020 wnl IR INJECTION BOTOX MUSCLE Right botox right eye ORIF ANKLE FRACTURE Left 2020 DR TRUJILLO OTHER SURGICAL HISTORY surgical repair [...] triceps, wrist extensors, wrist extensors, wrist flexor, manager code strength 5/5. LUE Strength deltoid, biceps, triceps, wrist extensors, wrist extensors, wrist flexor, manager code strength 5/5. RLE Strength illopsoas, quadriceps, tibialis [...] She previously followed with Dr. Monterroso at [facility] and neuro ophthalmology. Hypnopompic hallucination History of [...] has tried botox in the past at [facility]. She weaned gabapentin and is feeling better [...] most consistent with hypnopompic hallucinations. MOCA 12/28/2023: 2330 1/5 recall Routine EEG 12/22/2023: normal routine EEG [...] or worsening symptoms documented in this encounter [facility] 04-13-2024 Hospital Discharge instructions Patient Education [...] Follow these instructions at home: Medicines Take btfh-oud-waxfmqa and prescription medicines only as told by [...] provider. Document Revised: 10/15/2022 Document Reviewed: 10/15/2022 [employer] Patient Education 2023 [employer]. Follow Up Care 04/05/2024 10:57:54 With:Lexi Reid MD, URL, URO Address: When: Unknown Comments:Matilde menjivar [facility] 04-13-2024 Note Patient Education Urology Kidney Stones [...] these instructions at home: Medicines ? Take dpws-vtp-avxwjid and prescription medicines only as told by [...] diet. Follow r (more content not included)... [facility] 04-04-2024 Evaluation + Plan note Future Scheduled TestsXR Abdomen 1 View 04/04/24US Renal 04/04/24 [facility] 04-03-2024 Note HNO ID: [id number] Author: ELIZABETH BALBUENA MD Service: ? Author Type: Physician Type: Progress Notes Filed: 04/27/2024 21:37 Note Text: Head and [facility] [place] Facial Plastic and Reconstructive Surgery Name: Ruperto [...] orbicularis oculi, zygomaticus major, levator labii and finance business partner Redemonstrated severe lateral pull of upper lip [...] (2u, 2 sites) = 4 U Left finance business partner (3u, 2 site) = 6 U Left [...] either me or Dr. José Balbuena MD [facility] [place] [facility]constructive [facility] ADDENDUM: I performed the procedure and discussed the patient's management with the fellow. I reviewed and edited the note and agree with the documented findings and treatment plan. Elizabeth Balbuena MD [facility] Neck Hand Clerical Verifier, Facial Plastic and Microvascular Surgery UNIVERSAL PROTOCOL [...] Visit completed when applicable. Elizabeth Balbuena MD [facility] 04-03-2024 History of Present illness Narrative [facility] [place] Facial Plastic and Reconstructive Surgery Name: Ruperto [...] orbicularis oculi, zygomaticus major, levator labii and finance business partner Redemonstrated severe lateral pull of upper lip [...] (2u, 2 sites) = 4 U Left finance business partner (3u, 2 site) = 6 U Left [...] botox injections with either or Dr. José Balbuena MD [facility] [place] Facial Plastic and Reconstructive Surgery ADDENDUM: I performed the procedure and discussed the patient's management with the fellow. I reviewed and edited the note and agree with the documented findings and treatment plan. Elizabeth Balbuena MD [facility] Head and Neck Hand Clerical Verifier, Facial Plastic and Microvascular Surgery UNIVERSAL PROTOCOL [...] Elizabeth Balbuena MD documented in this encounter [facility] 03-30-2024 Nurse Note Tobacco Use: 1.5 packs/day, for 18 years. Quit 07/20/1999. Types: Cigarettes Was smoking cessation packet given? N/A - Patient is a non-smoker or quit >1 year ago. Was a referral initiated?N/A Patient is a non-smoker. Paulina Jerez RN March 30, 2024 11:31 AM [facility] 03-30-2024 Nurse Note Tobacco Use: 1.5 packs/day, for 18 years. Quit 07/20/1999. Types: Cigarettes Was smoking cessation packet given? N/A - Patient is a non-smoker or quit >1 year ago. Was a referral initiated?N/A Patient is a non-smoker. Paulina Jerez RN March 30, 2024 11:31 AM documented in this encounter [facility] 03-17-2024 Hospital Discharge instructions Patient Education 03/17/2024 13:15:00 Kidney Stones, Gjzf-dh-Zadx Kidney Stones Kidney stones are rock-like masses [...] Follow these instructions at home: Medicines Take hsuh-zkf-ffmdgzt and prescription medicines only as told by [...] provider. Document Revised: 03/10/2022 Document Reviewed: 03/10/2022 [employer] Patient Education 2022 [employer]. Follow Up Care 03/17/2024 09:52:31 With:Franklin FLOYD, CORNELIUS GarciaL, URO Address: [address] [place] [phone] When: Unknown [facility] 03-17-2024 Note Patient Education Urology Kidney Stones [...] these instructions at home: Medicines ? Take oegk-jjv-hkcgqfu and prescription medicines only as told by [...] provider. Document Revised: 03/10/2022 Document Reviewed: 03/10/2022 [employer] Patient Education ? 2022 [employer]. [facility] 10-09-2023 Note HNO ID: [id number] Author: ADINA HINOJOSA MD Service: ? Author Type: Physician Type: Progress Notes Filed: 10/18/2023 16:43 Note Text: Head and [facility]ck [place] Facial Plastic and Reconstructive Surgery Name: Ruperto [...] orbicularis oculi, zygomaticus major, levator labii and finance business partner - Severe lateral pull of upper lip [...] units 1 site) = 2 U Left finance business partner (3u, 2 site) = 6 U Left procerus (3u, 1 site) = 3 U Left mentalis (2u, 3 sites) 6 U Left platysma (3u, 18 x sites) = 54 units Right TAMRA (3U 1 site)=3U Right finance business partner (2U, 2 sites) = 4U Right lateral orbicularis infrabrow= 2U, 1 site=2U Right platysma (3U [id number]) = 9 U Total: 120 units used [...] MD Facial Plastic and Reconstructive Surgery Fellow [facility], [facility] [place] [facility] 06-24-2023 Hospital Discharge instructions Patient Education 06/24/2023 [...] include: ?8 oz (237 mL) of milk, fbuoaoy-hijkuogndziz-mcofs milk, and calcium-fortifiedfruit juice. Calcium-fortified means that [...] ?Spinach (cooked), rhubarb, beets, sweet potatoes, and Serbian chard. ?Peanuts. ?Potato chips, cymro fries, and baked potatoes with skin on. ?Nuts and nut products. ?Chocolate. If you regularly take a diuretic medicine, make sure to eat at least 1 or 2 servings of fruits or vegetables that are high in potassium each day. These include: ?Avocado. ?Banana. ?Meridian, prune, carrot, or tomato juice. ?Baked potato. [...] magnesium, fish oil, or vitamin B6. Take tbtk-rmx-wmqansc and prescription medicines only as told by [...] Casseroles. Pizza. Lasagna. Frozen meals. Potato chips. German fries. The items listed above may not [...] provider. Document Revised: 10/16/2022 Document Reviewed: 10/16/2022 [employer] Patient Education 2022 [employer]. Follow Up Care 11/26/2022 08:11:41 With:Franklin FLOYD, BUDDY Garcia, URO Address: [address] [place] [place] [phone] When: Unknown Comments:6 mos w/ [facility] and [facility] 04-10-2023 Nurse Note Tobacco Use: 1.5 packs/day, for 18 years. Quit 07/20/1999. Types: Cigarettes Was smoking cessation packet given? N/A - Patient is a non-smoker or quit >1 year ago. Was a referral initiated?N/A Patient is a non-smoker documented in this encounter [facility] 04-10-2023 History of Present illness Narrative Head [facility] [place] Facial Plastic and Reconstructive Surgery Name: Ruperto [...] orbicularis oculi, zygomaticus major, levator labii and finance business partner - Severe lateral pull of upper lip [...] (2u, 4 sites) = 8 U Left finance business partner (3u, 2 site) = 6 U Left [...] MD Facial Plastic and Reconstructive Surgery Fellow [facility], [facility] [place] [place] documented in this encounter [facility] 11-26-2022 Hospital Discharge instructions Patient Education 11/26/2022 [...] include: ?8 oz (237 mL) of milk, seqlgpb-gqepqpxxsaay-eyucs milk, and calcium-fortifiedfruit juice. Calcium-fortified means that [...] ?Spinach (cooked), rhubarb, beets, sweet potatoes, and Serbian chard. ?Peanuts. ?Potato chips, cymro fries, and baked potatoes with skin on. ?Nuts and nut products. ?Chocolate. If you regularly take a diuretic medicine, make sure to eat at least 1 or 2 servings of fruits or vegetables that are high in potassium each day. These include: ?Avocado. ?Banana. ?Meridian, prune, carrot, or tomato juice. ?Baked potato. [...] magnesium, fish oil, or vitamin B6. Take vijb-tsm-mzscgtt and prescription medicines only as told by [...] Casseroles. Pizza. Lasagna. Frozen meals. Potato chips. German fries. The items listed above may not [...] provider. Document Revised: 03/17/2022 Document Reviewed: 03/17/2022 [employer] Patient Education 2022 [employer]. Follow Up Care 07/23/2022 11:38:48 With:Franklin FLOYD, BUDDY Garcia, URO Address: When: Unknown [facility] 07-23-2022 Hospital Discharge instructions Patient Education 07/23/2022 11:37:41 Kidney Stones, Bxys-kt-Ugff Kidney Stones Kidney stones are rock-like masses [...] Follow these instructions at home: Medicines Take unyg-ghp-cktrgxx and prescription medicines only as told by [...] 12/22/2008 Document Revised: 11/22/2019 Document Reviewed: 11/22/2019 [employer] Patient Education 2020 [employer]. Follow Up Care 01/15/2022 10:50:51 With:Franklin FLOYD, Lexi Regalado, URL, URO Address: [address] [place] [address] [place], [place] [address] [phone] When:Within 3 Month(s) Comments:matilde RUBIO w/o [facility] 05-16-2022 History of Present illness Narrative Botox 50U with 0.5ml NaCl Lot [id number] Exp 11/2024 Head and [facility] [place] Facial Plastic and Reconstructive Surgery Name: Ruperto [...] orbicularis oculi, zygomaticus major, levator labii and finance business partner -Severe lateral pull of upper lip to [...] (2u, 4 site) = 8 u Left finance business partner (3u, 2 site) = 6 U Left [...] for repeat botox injections Elizabeth Balbuena MD [facility] Head and Neck Hand Clerical Verifier, Facial Plastic and Microvascular Surgery By signing my name below, I, Adrian Sepulveda, attest that this documentation has been prepared under the direction and in the presence of Dr. Elizabeth Balbuena. Electronically signed, Adrian Sepulveda Lita May 16, 2022 2:59 PM I have reviewed and edited above documentation and it accurately reflects assessment, work and decisions made by me. Elizabeth Balbuena MD [facility] Head and Neck Hand Clerical Verifier, Facial Plastic and Microvascular Surgery [employer]IVERSAL [employer]OT[employer] [...] Elizabeth Balbuena MD documented in this encounter [facility] 05-16-2022 Nurse Note Tobacco Use: 1.5 packs/day, for 18 years. Quit 07/20/1999. Types: Cigarettes Was smoking cessation packet given? N/A - Patient is a non-smoker or quit >1 year ago. Was a referral initiated?N/A Patient is a non-smoker documented in this encounter [facility] 01-15-2022 Hospital Discharge instructions Patient Education 01/15/2022 10:39:00 Kidney Stones, Pyub-by-Asnh Kidney Stones Kidney stones are rock-like masses [...] Follow these instructions at home: Medicines Take imyd-cia-aktvont and prescription medicines only as told by [...] 12/22/2008 Document Revised: 11/22/2019 Document Reviewed: 11/22/2019 [employer] Patient Education 2020 [employer]. Follow Up Care 09/18/2021 11:24:57 With:Franklin FLOYD, Lexi Regalado, URL, URO Address: [address] [place] [phone] When:07/17/2022 Comments:[facility] MCDONOUGH [facility] 12-25-2021 Note PROCEDURE: XR FOOT R [...] [place] Date: 2021-12-25 16:49 [facility] 12-13-2021 History of Present illness Narrative Head [facility] [place] Facial Plastic and Reconstructive Surgery Name: Ruperto [...] orbicularis oculi, zygomaticus major, levator labii and finance business partner severe lateral pull of upper lip to [...] (2u, 2 sites) = 4 U left finance business partner (3u, 2 site) = 6 U left [...] decisions made by me. Elizabeth Balbuena MD [facility] Head and Neck Hand Clerical Verifier, Facial Plastic and Microvascular Surgery Procedure: Botox Injections Informed Consent Consent Obtained: Written [place] Protocol A moment to CARE was completed [...] completed when applicable documented in this encounter [facility] 11-19-2021 Miscellaneous Notes Notified pt of [...] 1.7 ng/dL 1.0 documented in this encounter [facility] 11-12-2021 History of Present illness Narrative Ms. [...] Card MD, PhD documented in this encounter [facility] Evaluation + Plan note Future Appointments Appointment Date:07/23/2022 10:00:00 AM Scheduled Provider:Lexi Reid MD Location:[facility] Appointment Type:URO Office Visit [facility] Evaluation + Plan note Future Appointments Appointment Date:10/29/2022 10:15:00 AM Scheduled Provider:Lexi Reid MD Location:[facility] Appointment Type:URO Office Visit [facility] Evaluation + Plan note Future Appointments Appointment Date:06/24/2023 08:00:00 AM Scheduled Provider:Lexi Reid MD Location:[facility] Appointment Type:URO Office Visit [facility] Evaluation + Plan note Future Appointments Appointment Date:01/06/2024 09:00:00 AM Scheduled Provider:Lexi Reid MD Location:[facility] Appointment Type:URO Office Visit [facility] Evaluation + Plan note Future Appointments Appointment Date:04/06/2024 11:00:00 AM Scheduled Provider:Lexi Reid MD Location:[facility] Appointment Type:URO Office Visit [facility] Evaluation + Plan note Future Appointments Appointment Date:04/12/2024 12:40:00 PM Scheduled Provider:ANN FORTE PA-C Location:[facility] Appointment Type:URO Office Visit Future Scheduled TestsXR Abdomen 1 View 04/04/24US Renal 04/04/24 [facility] Evaluation + Plan note Future Appointments Appointment Date:09/28/2024 08:45:00 AM Scheduled Provider:Lexi Reid MD Location:[facility] Appointment Type:URO Office Visit Diagnostic Tests PendingBasic Metabolic Panel 06/23/24 Future Scheduled TestsXR Abdomen 1 View 04/04/24US Renal 04/04/24 [facility] Evaluation note No Assessments Infor mation Available [facility] Evaluation note Diagnosis Multiple thyroid nodules- Primary Nontoxic multinodular goiter Obesity, Class I, BMI 30-34.9 Obesity, unspecified Vasomotor symptoms due to menopause [facility] 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 Facial nerve disorder, unspecified [facility] Diagnosis Facial nerve motor disorder- Primary Facial nerve disorder, unspecified [facility] 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 Work Phone: Evaluation note* Diagnosis 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 Diagnosis Preoperative cardiovascular examination Pre-operative cardiovascular examination Mixed hyperlipidemia Acquired hypothyroidism Unspecified hypothyroidism Tremor Abnormal involuntary movements BMI 31.0-31.9,adult Former smoker Personal history of tobacco use, presenting hazards to health documented in this encounter [facility] Work Phone: Hospital course Narrative No data available for this section [facility] Hospital Discharge instructions No data available for this section [facility] [place] Progress note No data available for this section [facility] Advance Directives Advance Directive Response Recorded Date/ Time Advance Directives No May 2:55pm Documents on File Type Date Recorded Patient Mold Mover 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 Advance Directive(s) 06/24/2019 7:51 AM Advance Directive(s) 06/01/2018 7:17 AM Advance Directive(s) 05/27/2018 1:38 PM Advance Directive(s) 12/12/2009 8:53 PM Documents on File Type Date Recorded Patient Mold Mover 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 Advance Directive(s) 06/24/2019 7:51 AM Advance Directive(s) 06/01/2018 7:17 AM Advance Directive(s) 05/27/2018 1:38 PM Advance Directive(s) 12/12/2009 8:53 PM Documents on File Type Date Recorded Patient Mold Mover 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 Advance Directive(s) 12/12/2009 8:53 PM Advance Directive Response Recorded Date/ Time Advance Directives No May 1:55pm Chief Complaint and Reason for Visit Chief Complaint Screening Chief Complaint Q27.30 R44.1 Chief Complaint Admit Date right kidney stone, ureteral stone w/hyd ronephrosi May 31, 2024 1:15pm Chief Complaint Admit Date right kidney stone, ureteral stone w/hyd ronephrosi May 31, 2024 1:15pm right kidney stone, ureteral stone w/hyd ronephrosi June 07, 2024 11:37am Reason for Referral Specialty Diagnoses / Procedures Referred By Alisson lin Referred To Contact Diagnoses Vasomotor symptoms due to menopause Procedures CONSULT TO [facility]OM[facility]S [facility]ALTH OFFICE[facility]PATIENT [facility] 60-74 MINUTES Shawna Card MD, PhD [address] [place] [address] Vicki Kiser MD [address] [place] [address] Referral ID Status Reason Start Date Expiration Date Visits Requested Visits Authorized [id number] Authorized PCP Requested Referral Auto-Generate d Referral [...] 100 Units Face Summary Purpose Family History Relationship Condition Age at Onset Recorded Date/T jose father Malignant neoplasm of kidney Unknown Aneurysm Unknown mother Alive and well Unknown brother Heart disease Unknown Heart valve disease Unknown Presence of cardiac pacemaker Unknown Cerebrovascular accident (CVA) Unknown Additional Source Comments Source Comments (unrecognize d section and content) In the event this informatio n is protected by the Federal Confidentiality of Alcohol and Drug Abuse Patient Records regulations: The Federal rules restrict any use of the information to criminally investigate or prosecute any alcohol or drug abuse patient.[facility] the event this information is protected by the Federal Confidentiality of Alcohol and Drug Abuse Patient Records regulations: The Federal rules restrict any use of the information to criminally investigate or prosecute any alcohol or drug abuse patient.[facility] HospitalIn the event this information is protected by the Federal Confidentiality of Alcohol and Drug Abuse Patient Records regulations: The Federal rules restrict any use of the information to criminally investigate or prosecute any alcohol or drug abuse patient.[facility] Hospital[facility] the event this information is protected by the Federal Confidentiality of Alcohol and Drug Abuse Patient Records regulations: The Federal rules restrict any use of the information to criminally investigate or prosecute any alcohol or drug abuse patient.[facility] HospitalIn the event this information is protected by the Federal Confidentiality of Alcohol and Drug Abuse Patient Records regulations: The Federal rules restrict any use of the information to criminally investigate or prosecute any alcohol or drug abuse patient.[facility] Hospital[facility] the event this information is protected by the Federal Confidentiality of Alcohol and Drug Abuse Patient Records regulations: The Federal rules restrict any use of the information to criminally investigate or prosecute any alcohol or drug abuse patient.[facility] Hospital[facility] the event this information is protected by the Federal Confidentiality of Alcohol and Drug Abuse Patient Records regulations: The Federal rules restrict any use of the information to criminally investigate or prosecute any alcohol or drug abuse patient.[facility] Reason for Visit (unrecogniz ed section and content) Reason Comments Procedure Specialty Diagnoses / Procedures Referred By Contac t Referred To Contact ENT-OTOLARYNGOLOGY 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 Renewal medical botox Procedures CHEMODNRVTJ [facility] INNERVATED FACIAL NRV UNIL BOTULINUM TOXIN A PER 1 UNIT Med botox 100 units every 3-4 months for 1 year Elizabeth Balbuena MD [address] [place] [address] Elizabeth Balbuena MD [address] [place] [address] Referral ID Status Reason Start Date Expiration Date V isits Requested Visits Authorized [id number] Authorized 04/01/2023 07/19/2024 99 99 Reason Comments Facial nerve spasm Facial nerve spasm, Botox Specialty Diagnoses / Procedures Referred By Contact Referred To Contact Ent - Otolaryngology / ENT-FACIAL PLASTICS Diagnoses 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, unspecified Alcala's palsy Repeat medical botox injections Procedures BOTULINUM TOXIN A PER 1 UNIT CHEMODNRVTJ [facility] INNERVATED FACIAL NRV UNIL RENEWAL REQUEST INJECTABLE (100 UNITS EVERY 3-4 MONTHS FOR 1 YR) [place] [address] [place] [address] Elizabeth Balbuena MD [address] [place] [address] Referral ID Status Reason Start Date Expiration Date V isits Requested Visits Authorized [id number] Authorized 12/13/2021 10/24/2022 99 99 Reason Comments Thyroid Problem Reason Comments Results Reason Comments Botox Injection Referral ID Status Reason Start Date Expiration Date V isits Requested Visits Authorized [id number] Pending Review 12/13/2021 12/12/2022 4 4 Reason Comments Follow Up Botox Referral ID Status Reason Start Date Expiration Date V isits Requested Visits Authorized [id number] Authorized 04/01/2023 03/31/2024 99 99 Reason Comments Trigeminal Neuralgia Migraine Stroke Reason Comments New Patient Visit Abnormal EKG Specialty Diagnoses / Procedures Referred By Contac t Referred To Contact Diagnoses Preoperative cardiovascular examination Procedures ECG 12 Lead Елена Griffin MD [address] [address] Phone: tel: fax: Referral ID Status Reason Start Date Expiration Date V isits Requested Visits Authorized [id number] Authorized 05/27/2024 05/27/2025 1 1 Care Teams (unrecognized sec tion and content) Personnel Name: GERSON CLEMENTS JR, DO Address: Address: [address] [place] [phone] Team Status: Active Member Role Status Dates Gerson Clements JR DO Primary Care Provider Active Team Status: Active Member Role Status Dates Gerson Clements JR DO Primary Care Provider Active Start: April 27, 2024 Armen Espinoza DO Attending Provider Active Sta rt: April 27, 2024 Team Status: Inactive Member Role Status Dates Gerson Clements JR DO Primary Care Provider Active Start: May 31, 2024 End: May 31, 2024 Lexi Reid MD Attending Provider Active Start : May 31, 2024 End: May 31, 2024 Planning And Analysis Manager Relationship Specialty Start Date End Date JeannaGerson nava Jr. [address] [place] [address] PCP - General 08/24/01 Planning And Analysis Manager Relationship Specialty Start Date End Date LisaGerson Jr. [address] [place] [address] PCP - General 08/24/01 Planning And Analysis Manager Relationship Specialty Start Date End Date JeannaGerson nava Jr. [address] [place] [address] PCP - General 08/24/01 Planning And Analysis Manager Relationship Specialty Start Date End Date LisaGerson Jr. [address] [place] [address] PCP - General 08/24/01 Planning And Analysis Manager Relationship Specialty Start Date End Date JeannaGerson nava Jr. [address] [place] [address] PCP - General 08/24/01 Planning And Analysis Manager Relationship Specialty Start Date End Date JeannaGerson nava Jr. [address] [place] [address] PCP - General 08/24/01 Team Status: Inactive Member Role Status Dates [...] November 03, 2023 End: November 03, 2023 Planning And Analysis Manager Relationship Specialty Start Date End Date Gerson Clements Jr., DO [address] [place] [address] PCP - General 08/24/01 Planning And Analysis Manager Relationship Specialty Start Date End Date Gerson Clements MD [address] [facility] [place] [address] PCP - General Internal Medicine 01/07/23 Planning And Analysis Manager Relationship Specialty Start Date End Date Gerson Clements MD [address] [facility] [place], [place] [id number] PCP - General Internal Medicine 01/07/23 Planning And Analysis Manager Relationship Specialty Start Date End Date Gerson Clements DO PCP - General 12/21/09 Team Status: Inactive Member Role Status Dates Gerson Clements JR DO Primary Care Provider Active Start: June 07, 2024 End: June 07, 2024 Lexi Reid MD Attending Provider Active Start : June 07, 2024 End: June 07, 2024 INFORMATION SOURCE (unrecogn ized section and content) DATE CREATED AUTHOR 11/15/2022 [facility] DATE CREATED AUTHOR AUTHOR'S ORGANIZ ATION 04/30/2024 [facility] DATE CREATED AUTHOR AUTHOR'S ORGANIZ ATION 05/17/2024 [facility] EPIC DATE CREATED AUTHOR AUTHOR'S ORGANIZ ATION 05/30/2024 [facility] DATE CREATED AUTHOR AUTHOR'S ORGANIZ ATION 06/22/2024 [facility] DATE CREATED AUTHOR AUTHOR'S ORGANIZ ATION 06/23/2024 [facility] Goals (unrecognized section and content) [...] BE BASED ON THE PRIMARY CLINICAL RECORDS. [facility]. provides no warranty or guarantee of the accuracy or completeness of information in this document.
== END 2024-07-01 12:14 | disposition home or self-care (01) ==
LOC: MRI 12:13
PROVIDERS: PCP Internal Medicine; Visit Provider Internal Medicine
DX: M25.511 Pain in right shoulder (principal); M89.9 Disorder of bone, unspecified; M75.51 Bursitis of right shoulder
CPT/HCPCS: 73221

== ENCOUNTER 2024-09-19 13:01 | Emergency (ER) | payer MEDICARE, OTHER, SELFPAY ==
[2024-09-19] VITALS (25 sets, daily range): BP systolic 114–158; BP diastolic 45–100; PULSE 77–101; TEMP 38.1; O2SAT 91–100; BMI 30.3
--- NOTE | 2024-09-19 13:21 | ECG_ITS ---
[facility] Test Date: 2024-09-19 Pat Name: RUPERTO SARAVIA Department: Room: - Gender: Female Auto Parker: : 1955 Requested By: ASYA CLEMENTS Order Number: [id number] Reading MD: MARTIN BRICE Measurements Intervals [place] Rate: 82 P: 52 ID: [id number] QRS: 46 QRSD: 86 T: 31 QT: 364 QTc: 403 Interpretive Statements 1100 Sinus rhythm 9110 normal ECG Compared to ECG 04/27/2024 10:41:10 Sinus bradycardia no longer present Possible ischemia no longer present Electronically Signed On 09-20-2024 10:36:08 EST by MARTIN BRICE
[2024-09-19 13:48] LABS: Hematocrit 32.4 % (36.0-48.0); Hemoglobin 10.1 g/dL (12.0-16.0); Mean Corpuscular HGB Conc 31.2 g/dL (29.9-35.2); Mean Corpuscular Hemoglobin 28.1 pg (26.7-34.0); Mean Corpuscular Volume 90.3 fL (81.0-99.0); Mean Platelet Volume 10.6 fL (9.5-13.5); Platelet Count 252 10^3/uL (150-450); Red Blood Count 3.59 10^6/uL (4.20-5.40); Red Cell Distribution Width 14.9 % (11.0-15.0); White Blood Count 6.5 10^3/uL (4.0-11.0)
[2024-09-19] MEDS: ACETAMINOPHEN 500 MG TABLET 1000 MG PO (13:59)
[2024-09-19] MEDS: 0.9 % SODIUM CHLORIDE 1,000 ML 999 ML IV (14:02)
[2024-09-19] MEDS: CEFTRIAXONE 2,000 MG in 0.9 % SODIUM CHLORIDE 100 ML 200 MG IV (14:03)
[2024-09-19 14:05] LABS: Band Neutrophils Absolute 0.1 10^3/uL (0.0-0.3); Basophils Abs Manual 0.06 10^3/uL (0.00-0.10); Dohle Bodies 1+; Eosinophils Absolute Manual 0.26 10^3/uL (0.00-0.70); Lactate/Lactic Acid 1.3 mmol/L (0.4-2.0); Lymphocytes Absolute Manual 0.45 10^3/uL (1.20-3.80); Monocytes Absolute Manual 0.13 10^3/uL (0.30-0.80); Segmented Neut Absolute Manual 5.46 10^3/uL (1.4-6.5)
[2024-09-19 14:06] LABS: Anisocytosis 1+; Ovalocytes 1+
[2024-09-19 14:11] LABS: Alanine Aminotransferase 43 U/L (14-59); Albumin Globulin Ratio 0.5; Albumin Level 2.2 g/dL (3.4-5.0); Alkaline Phosphatase 140 U/L (46-116); Aspartate Amino Transferase 24 U/L (15-37); BUN Creatinine Ratio 13.8; Bilirubin Total 0.6 mg/dL (0.2-1.0); Calcium 8.8 mg/dL (8.5-10.1); Chloride 96 mmol/L (98-107); Estimated GFR (African America >60 (>=60 mL/min/1.73m^2); Estimated GFR (Non-African Ame >60 (>=60 mL/min/1.73m^2); Globulin 4.7 g/dL; Glucose 104 mg/dL (74-106); Sodium 134 mmol/L (136-145); Total Protein 6.9 g/dL (6.4-8.2)
[2024-09-19 14:45] LABS: Influenza Virus A Antigen Negative; Influenza Virus B Antigen Negative; Internal Control Within Normal Limits
[2024-09-19 14:46] LABS: Internal Control Within Normal Limits; Respiratory Syncytial Virus Not Detected (NOT DETECTE); SARS-CoV-2 Ag NEGATIVE (NEGATIVE)
[2024-09-19 15:26] LABS: Bilirubin Urine NEGATIVE (NEGATIVE); Blood Urine NEGATIVE (NEGATIVE); Clarity Urine CLEAR (CLEAR); Color Urine LT. YELLOW (YELLOW); Glucose Urine UA NEGATIVE (NEGATIVE); Ketones Urine NEGATIVE (NEGATIVE); Leukocyte Esterase Urine TRACE (NEGATIVE); Nitrite Urine NEGATIVE (NEGATIVE); Protein Urine 30 mg/dL (NEG/TRACE); Urobilinogen Urine 0.2 EU/dL (0.2-1.0)
[2024-09-19 15:34] LABS: Bacteria Urine TRACE #/HPF (NONE SEEN); Mucus Urine NONE SEEN (NONE SEEN); RBC Urine 0-2 #/HPF (0-2); Squamous Epithelial Cell Urine FEW #/LPF (NONE/RARE)
[2024-09-19 15:35] LABS: Cast Seen? NONE SEEN #/LPF (NONE SEEN); Crystals Seen? None Seen #/HPF (None Seen)
[2024-09-19 15:36] LABS: Urine Culture Indicated NO
--- NOTE | 2024-09-19 15:46 | ED.SOB1 ---
Documented by User: THAD Cruz 09/19/24 18:41 HPI - SOB/Dyspnea General Chief Complaint: Shortness of Breath/Dyspnea Stated Complaint: SOB, RASH Time Seen by Provider: 09/19/24 13:13 Source: patient and family () Mode of arrival: ambulance Limitations: no limitations History of Present Illness HPI Narrative: 68-year-old female presents to the emergency department with with complaint of not feeling well since this morning. Complains of cough, shortness of breath. Has been worried about dehydration. Over the past couple weeks she has had similar symptoms, as well as, diarrhea. History of admission to [facility] last week for the cough, shortness of breath. States they were treated for pneumonia while they were in the hospital, as well as, dehydration. History of lung cancer with last chemotherapy performed Thursday of last. She has had radiation treatments. + Mild fever, general weakness. Cough has been nonproductive. Denies any abdominal symptoms. Quality:?As above Severity:?Moderate Timing:?As above Context: Normal setting and activity? Modifying factors:?None Associated symptoms: As above Related Data Home Medications ?Medication ?Instructions ?Recorded ?Confirmed acetylcysteine 600 mg capsule (NAC) 600 mg PO DAILY 04/27/24 04/27/24 cholecalciferol (vitamin D3) 25 25 mcg PO DAILY 04/27/24 04/27/24 mcg (1,000 unit) capsule ezetimibe 10 mg tablet 10 mg PO DAILY 04/27/24 04/27/24 fluoxetine 20 mg capsule 20 mg PO DAILY 04/27/24 04/27/24 levothyroxine 25 mcg tablet 25 mcg PO DAILY 04/27/24 04/27/24 meloxicam 15 mg tablet 15 mg PO DAILY 04/27/24 04/27/24 modafinil 200 mg tablet 200 mg PO DAILY PRN narcolepsy 04/27/24 04/27/24 multivitamin (Daily Multi-Vitamin 1 tab PO DAILY 04/27/24 04/27/24 tablet) phentermine 37.5 mg tablet 37.5 mg PO DAILY 04/27/24 04/27/24 propranolol 60 mg tablet 60 mg PO DAILY PRN tremor 04/27/24 04/27/24 vit A 7,160 unit-vit C 113 mg-vit tab 04/27/24 E 100 [id number]-pycivf tablet Previous Rx's ?Medication ?Instructions ?Recorded benzonatate 200 mg capsule 200 mg PO TID PRN cough #20 caps 09/19/24 doxycycline hyclate 100 mg capsule 100 mg PO BID 7 days #14 caps 09/19/24 Allergies Allergy/AdvReac Type Severity Reaction Status Date / Time No Known Drug Allergies Allergy Verified 04/27/24 10:16 Review of Systems ROS Narrative CONST: + fever, chills HENT: + congestion. Denies sore throat EYES: Denies eye redness, visual disturbance RESP: + cough, shortness of breath CV: + chest pain. Denies palpitations GI: Denies abd pain, nausea, vomiting : Denies dysuria, flank pain MS: Denies back pain, myalgias SKIN: + rash. NEURO: Denies numbness, weakness PSYCHIATRIC: Denies confusion, agitation PFSH [facility] Medical History Arthritis ?M19.90 - Unspecified osteoarthritis, unspecified site (ICD-10) Sleep disorder ?G47.9 - Sleep disorder, unspecified (ICD-10) PTSD (post-traumatic stress disorder) ?F43.10 - Post-traumatic stress disorder, unspecified (ICD-10) Panic attacks ?F41.0 - Panic disorder [episodic paroxysmal anxiety] (ICD-10) Anxiety ?F41.9 - Anxiety disorder, unspecified (ICD-10) Sleep apnea ?G47.30 - Sleep apnea, unspecified (ICD-10) Seizures ?R56.9 - Unspecified convulsions (ICD-10) Hypertension ?I10 - Essential (primary) hypertension (ICD-10) Foot drop ?M21.379 - Foot drop, unspecified foot (ICD-10) Hypothyroidism ?E03.9 - Hypothyroidism, unspecified (ICD-10) Weakness of extremity ?R29.898 - Other symptoms and signs involving the musculoskeletal system (ICD-10) Facial weakness ?R29.810 - Facial weakness (ICD-10) Cavernous hemangioma of brain ?D18.02 - Hemangioma of intracranial structures (ICD-10) Arteriovenous malformation ?Q27.30 - Arteriovenous malformation, site unspecified (ICD-10) Nerve pain ?M79.2 - Neuralgia and neuritis, unspecified (ICD-10) Hydronephrosis ?N13.30 - Unspecified hydronephrosis (ICD-10) Hyperlipidemia ?E78.5 - Hyperlipidemia, unspecified (ICD-10) Kidney stones ?N20.0 - Calculus of kidney (ICD-10) Surgical History (Updated 04/27/24 @ 10:34 by Emilia Rai NP) S/P eye surgery ?Z98.890 - Other specified postprocedural states (ICD-10) H/O eye surgery ?Z98.890 - Other specified postprocedural states (ICD-10) H/O brain surgery (~2008) ?Z98.890 - Other specified postprocedural states (ICD-10) Family History (Updated 04/27/24 @ 10:34 by Emilia Rai NP) Other Cancer Family history of hypertension Family history of myocardial infarction Family history of stroke Social History (Updated 04/27/24 @ 10:23 by Emilia Rai NP) Within the past year, how often did you have a drink containing alcohol: monthly or less Smoking status: Former smoker Non-prescribed substance use: denies use Highest level of school completed/degree received: some college, no degree Little interest or pleasure in doing things: not at all Feeling down, depressed, or hopeless: not at all Exam Narrative Exam Narrative: Vital signs reviewed Nurses notes noted CONST: Nontoxic, well appearing, well nourished, in no distress.? No diaphoresis.?? HENT: normocephalic, atraumatic, dry mucous membrane, no abnormalities of the nose noted, hearing normal EYES: normal appearing conjunctiva, no apparent discharge bilat NECK: normal appearance CV: normal rate, regular rhythm, no murmur RESP: normal effort, speaking in complete sentences. Lung sounds are little diminished, otherwise clear and equal bilat.? No wheezes, rales, rhonchi GI: soft, no distension, nontender : no CVA tenderness MS: no edema, tenderness SKIN: + Rash noted to the right upper shoulder, base of neck. Tissue appears somewhat excoriated. There is erythema. Borders are irregular. No vesicles present. No pallor NEURO: A&Ox 3, no focal findings PSYCH: normal mood, affect Constitutional Vital Signs, click to edit/add: Last Vital Signs Temp 100.5 F H 09/19/24 13:03 Pulse 78 09/19/24 16:41 Resp 18 09/19/24 16:41 BP 128/63 09/19/24 16:41 Pulse Ox 94 L 09/19/24 16:41 O2 Del Method Room Air 09/19/24 16:41 Course Reevaluation(s) Reevaluation #1: On reevaluation, patient states she is feeling better after treatment. Discussed with patient and results, plan, and disposition. Patient and are agreeable. Time: 16:28 Vital Signs Vital signs: Vital Signs Temperature 100.5 F H 09/19/24 13:03 Pulse Rate 88 09/19/24 13:03 Respiratory Rate 20 09/19/24 13:03 Blood Pressure 135/80 09/19/24 13:03 Pulse Oximetry 100 09/19/24 13:03 Oxygen Delivery Method Room Air 09/19/24 13:03 Temperature 100.5 F H 09/19/24 13:03 Pulse Rate 78 09/19/24 16:41 Respiratory Rate 18 09/19/24 16:41 Blood Pressure 128/63 09/19/24 16:41 Pulse Oximetry 94 L 09/19/24 16:41 Oxygen Delivery Method Room Air 09/19/24 16:41 MDM - SOB/Dyspnea MDM Narrative Medical decision making narrative: This is a pleasant 68-year-old female who presents to the emergency department for evaluation of cough, shortness of breath, fever. Onset this morning, though she has not been feeling well over the past couple weeks. History of metastatic lung cancer. Last chemotherapy received this past Thursday. + Diarrhea. On arrival, afebrile, vital signs are stable Exam, nontoxic, well-appearing patient in no distress. Nonspecific rash noted to the right base of her neck, shoulder region. Skin appears excoriated. She denies any itching or pain. No other remarkable findings on HEENT exam. Heart regular rate and rhythm. Lung sounds, though diminished, were clear and equal bilaterally. No peripheral edema. EKG reveals no acute or concerning changes IV established, blood work was drawn. She was given 1 L normal saline. As she had temperature and received chemotherapy last week, consideration made for neutropenia. Blood work, including culture sent to lab. Labs reveal no leukocytosis. She is a little anemic 10.1 and 32.4. states she was worse a couple weeks ago for which she received a blood transfusion when she was as low as 5. No thrombocytopenia, electrolyte imbalance, renal impairment. Glucose 104. Urinalysis unremarkable. Influenza, RSV, COVID screens were all negative. Chest x-ray imaging, per radiologist reveals no acute findings Patient improved with fluids during ED course. Favor upper respiratory infection, cough, right nonspecific rash, mild dehydration, fever Pneumonia, PE less likely based on imaging COVID, influenza, RSV less likely based on lab testing UTI less likely based on lab testing. History and Record Review Discussion with independent historian: Additional records reviewed: Prior labs from January 2024 Management Independent interpretation: Chest x-ray: Mass noted left upper lobe. No infiltrate, edema Additional Tests and Interventions ECG: See above IV Fluids:hydration/inability to tolerate PO Re-Evaluation See ED course Disposition ? The patient was discharged. Prescriptions sent to pharmacy: Doxycycline, Tessalon Perle Plan: Patient will be discharged to home.? Condition at time of disposition: stable, improved.? Advised to follow up with primary provider. Advised to return for any worsening and/or development of new, concerning signs or symptoms Admission considered: patient improved during ED course, no other diagnostic or clinical findings to warrant admission PLEASE NOTE: Portions of the medical record may have been produced using electronic intake clerk and may contain errors with respect to translation of words which may not have been identified prior to finalization of the chart. Lab Data Attestation: I reviewed the patient's lab results. Labs: Lab Results 09/19/24 09/19/24 09/19/24 Range/Units 13:35 14:13 15:15 WBC 6.5 (4.0-11.0) 10^3/uL RBC 3.59 L (4.20-5.40) 10^6/uL Hgb 10.1 L (12.0-16.0) g/dL Hct 32.4 L (36.0-48.0) % MCV 90.3 (81.0-99.0) fL MCH 28.1 (26.7-34.0) pg MCHC 31.2 (29.9-35.2) g/dL RDW 14.9 (11.0-15.0) % Plt Count 252 (150-450) 10^3/uL MPV 10.6 (9.5-13.5) fL Seg Neuts % (Manual) 84.0 H (43.0-75.0) Band Neutrophils % 2.0 (0-5) % Lymphocytes % (Manual) 7.0 L (20.5-60.0) % Monocytes % (Manual) 2.0 (1.7-12.0) % Eosinophils % (Manual) 4.0 (0.9-7.0) % Basophils % (Manual) 1.0 (0.2-2.0) % Neutrophils # (Manual) 5.46 (1.4-6.5) 10^3/uL Band Neutrophils # 0.1 (0.0-0.3) 10^3/uL Lymphocytes # (Manual) 0.45 L (1.20-3.80) 10^3/uL Monocytes # (Manual) 0.13 L (0.30-0.80) 10^3/uL Eosinophils # (Manual) 0.26 (0.00-0.70) 10^3/uL Basophils # (Manual) 0.06 (0.00-0.10) 10^3/uL Dohle Bodies 1+ Anisocytosis 1+ Ovalocytes 1+ Sodium 134 L (136-145) mmol/L Potassium 5.0 (3.5-5.1) mmol/L Chloride 96 L (98-107) mmol/L Carbon Dioxide 30.0 (21.0-32.0) mmol/L Anion Gap 13.0 BUN 9.0 (7.0-18.0) mg/dL Creatinine 0.65 (0.55-1.02) mg/dL Est GFR ( Amer) >60 (>=60 mL/min/1.73m^2) Est GFR (Non-Af Amer) >60 (>=60 mL/min/1.73m^2) BUN/Creatinine Ratio 13.8 Glucose 104 (74-106) mg/dL Lactate 1.3 (0.4-2.0) mmol/L Calcium 8.8 (8.5-10.1) mg/dL Total Bilirubin 0.6 (0.2-1.0) mg/dL AST 24 (15-37) U/L ALT 43 (14-59) U/L Alkaline Phosphatase 140 H (46-116) U/L Total Protein 6.9 (6.4-8.2) g/dL Albumin 2.2 L (3.4-5.0) g/dL Globulin 4.7 g/dL Albumin/Globulin Ratio 0.5 Urine Color Lt. yellow (YELLOW) Urine Clarity Clear (CLEAR) Urine pH 8.0 (5.0-9.0) Ur Specific [place] 1.020 (1.005-1.025) Urine Protein 30 A (NEG/TRACE) mg/dL Urine Glucose (UA) Negative (NEGATIVE) mg/dL Urine Ketones Negative (NEGATIVE) mg/dL Urine Occult Blood Negative (NEGATIVE) Urine Nitrite Negative (NEGATIVE) Urine Bilirubin Negative (NEGATIVE) Urine Urobilinogen 0.2 (0.2-1.0) EU/dL Ur Leukocyte Esterase Trace A (NEGATIVE) Urine RBC 0-2 (0-2) #/HPF Urine WBC 2-5 A (NONE SEEN) #/HPF Ur Squamous Epith Cells Few A (NONE/RARE) #/LPF Urine Crystals None seen (None Seen) #/HPF Urine Bacteria Trace A (NONE SEEN) #/HPF Urine Casts None seen (NONE SEEN) #/LPF Urine Mucus None seen (NONE SEEN) Ur Culture Indicated? No Influenza Type A Ag Negative Influenza Type B Ag Negative RSV Antigen Not detected (NOT DETECTE) SARS-CoV-2 Ag (CV2AG) Negative (NEGATIVE) Imaging Data CXR, CT CHEST: Radiologist's impression: Chest x-ray: Left upper lobe mass Chest CT no evidence of PE or pneumonia Discharge Plan Discharge Chief Complaint: Shortness of Breath/Dyspnea Clinical Impression: Dehydration, mild, Rash and nonspecific skin eruption Cough Qualifiers: Cough type: acute Qualified Code(s): R05.1 - Acute cough Fever Qualifiers: Fever type: unspecified Qualified Code(s): R50.9 - Fever, unspecified Patient Disposition: Home, Self-Care Time of Disposition Decision: 16:25 Condition: Good Mode of Transportation: Private Vehicle Prescriptions / Home Meds: New doxycycline hyclate 100 mg capsule 100 mg PO BID 7 Days Qty: 14 0RF benzonatate 200 mg capsule 200 mg PO TID PRN (Reason: cough) Qty: 20 0RF No Action ezetimibe 10 mg tablet 10 mg PO DAILY propranolol 60 mg tablet 60 mg PO DAILY PRN (Reason: tremor) phentermine 37.5 mg tablet 37.5 mg PO DAILY fluoxetine 20 mg capsule 20 mg PO DAILY levothyroxine 25 mcg tablet 25 mcg PO DAILY meloxicam 15 mg tablet 15 mg PO DAILY modafinil 200 mg tablet 200 mg PO DAILY PRN (Reason: narcolepsy) acetylcysteine [NAC] 600 mg capsule 600 mg PO DAILY multivitamin [Daily Multi-Vitamin] Tablet 1 tab PO DAILY vit A-vit C-vit [id number]-niqzpq 7,160-113-100 egfv-oz-wmtx tablet cholecalciferol (vitamin D3) 25 mcg (1,000 unit) capsule 25 mcg PO DAILY Print Language: Citizen Of [place] Instructions: Dehydration (ED), Fever in Adults (ED), Upper Respiratory Infection (ED), Acute Rash (ED) Referrals: ASYA CLEMENTS DO [Primary Care Provider] - 1 week Discharge Date/Time: 09/19/24 16:53 Documented by User: Nikolas Walter MD 09/19/24 19:57 HPI - SOB/Dyspnea General Chief Complaint: Shortness of Breath/Dyspnea Stated Complaint: SOB, RASH Time Seen by Provider: 09/19/24 13:13 Related Data Home Medications ?Medication ?Instructions ?Recorded ?Confirmed acetylcysteine 600 mg capsule (NAC) 600 mg PO DAILY 04/27/24 04/27/24 cholecalciferol (vitamin D3) 25 25 mcg PO DAILY 04/27/24 04/27/24 mcg (1,000 unit) capsule ezetimibe 10 mg tablet 10 mg PO DAILY 04/27/24 04/27/24 fluoxetine 20 mg capsule 20 mg PO DAILY 04/27/24 04/27/24 levothyroxine 25 mcg tablet 25 mcg PO DAILY 04/27/24 04/27/24 meloxicam 15 mg tablet 15 mg PO DAILY 04/27/24 04/27/24 modafinil 200 mg tablet 200 mg PO DAILY PRN narcolepsy 04/27/24 04/27/24 multivitamin (Daily Multi-Vitamin 1 tab PO DAILY 04/27/24 04/27/24 tablet) phentermine 37.5 mg tablet 37.5 mg PO DAILY 04/27/24 04/27/24 propranolol 60 mg tablet 60 mg PO DAILY PRN tremor 04/27/24 04/27/24 vit A 7,160 unit-vit C 113 mg-vit tab 04/27/24 E 100 zboq-afzt-ddvytv tablet Previous Rx's ?Medication ?Instructions ?Recorded benzonatate 200 mg capsule 200 mg PO TID PRN cough #20 caps 09/19/24 doxycycline hyclate 100 mg capsule 100 mg PO BID 7 days #14 caps 09/19/24 Allergies Allergy/AdvReac Type Severity Reaction Status Date / Time No Known Drug Allergies Allergy Verified 04/27/24 10:16 [facility] Medical History Arthritis ?M19.90 - Unspecified osteoarthritis, unspecified site (ICD-10) Sleep disorder ?G47.9 - Sleep disorder, unspecified (ICD-10) PTSD (post-traumatic stress disorder) ?F43.10 - Post-traumatic stress disorder, unspecified (ICD-10) Panic attacks ?F41.0 - Panic disorder [episodic paroxysmal anxiety] (ICD-10) Anxiety ?F41.9 - Anxiety disorder, unspecified (ICD-10) Sleep apnea ?G47.30 - Sleep apnea, unspecified (ICD-10) Seizures ?R56.9 - Unspecified convulsions (ICD-10) Hypertension ?I10 - Essential (primary) hypertension (ICD-10) Foot drop ?M21.379 - Foot drop, unspecified foot (ICD-10) Hypothyroidism ?E03.9 - Hypothyroidism, unspecified (ICD-10) Weakness of extremity ?R29.898 - Other symptoms and signs involving the musculoskeletal system (ICD-10) Facial weakness ?R29.810 - Facial weakness (ICD-10) Cavernous hemangioma of brain ?D18.02 - Hemangioma of intracranial structures (ICD-10) Arteriovenous malformation ?Q27.30 - Arteriovenous malformation, site unspecified (ICD-10) Nerve pain ?M79.2 - Neuralgia and neuritis, unspecified (ICD-10) Hydronephrosis ?N13.30 - Unspecified hydronephrosis (ICD-10) Hyperlipidemia ?E78.5 - Hyperlipidemia, unspecified (ICD-10) Kidney stones ?N20.0 - Calculus of kidney (ICD-10) Surgical History (Updated 04/27/24 @ 10:34 by Emilia Rai NP) S/P eye surgery ?Z98.890 - Other specified postprocedural states (ICD-10) H/O eye surgery ?Z98.890 - Other specified postprocedural states (ICD-10) H/O brain surgery (~2008) ?Z98.890 - Other specified postprocedural states (ICD-10) Family History (Updated 04/27/24 @ 10:34 by Emilia Rai NP) Other Cancer Family history of hypertension Family history of myocardial infarction Family history of stroke Social History (Updated 04/27/24 @ 10:23 by Emilia Rai NP) Within the past year, how often did you have a drink containing alcohol: monthly or less Smoking status: Former smoker Non-prescribed substance use: denies use Highest level of school completed/degree received: some college, no degree Little interest or pleasure in doing things: not at all Feeling down, depressed, or hopeless: not at all Exam Constitutional Vital Signs, click to edit/add: Last Vital Signs Temp 100.5 F H 09/19/24 13:03 Pulse 78 09/19/24 16:41 Resp 18 09/19/24 16:41 BP 128/63 09/19/24 16:41 Pulse Ox 94 L 09/19/24 16:41 O2 Del Method Room Air 09/19/24 16:41 Course Vital Signs Vital signs: Vital Signs Temperature 100.5 F H 09/19/24 13:03 Pulse Rate 88 09/19/24 13:03 Respiratory Rate 20 09/19/24 13:03 Blood Pressure 135/80 09/19/24 13:03 Pulse Oximetry 100 09/19/24 13:03 Oxygen Delivery Method Room Air 09/19/24 13:03 Temperature 100.5 F H 09/19/24 13:03 Pulse Rate 78 09/19/24 16:41 Respiratory Rate 18 09/19/24 16:41 Blood Pressure 128/63 09/19/24 16:41 Pulse Oximetry 94 L 09/19/24 16:41 Oxygen Delivery Method Room Air 09/19/24 16:41 MDM - SOB/Dyspnea MDM Narrative Medical decision making narrative: This is a pleasant 68-year-old female who presents to the emergency department for evaluation of cough, shortness of breath, fever. Onset this morning, though she has not been feeling well over the past couple weeks. History of metastatic lung cancer. Last chemotherapy received this past Thursday. + Diarrhea. On arrival, afebrile, vital signs are stable Exam, nontoxic, well-appearing patient in no distress. Nonspecific rash noted to the right base of her neck, shoulder region. Skin appears excoriated. She denies any itching or pain. No other remarkable findings on HEENT exam. Heart regular rate and rhythm. Lung sounds, though diminished, were clear and equal bilaterally. No peripheral edema. EKG reveals no acute or concerning changes IV established, blood work was drawn. She was given 1 L normal saline. As she had temperature and received chemotherapy last week, consideration made for neutropenia. Blood work, including culture sent to lab. Labs reveal no leukocytosis. She is a little anemic 10.1 and 32.4. states she was worse a couple weeks ago for which she received a blood transfusion when she was as low as 5. No thrombocytopenia, electrolyte imbalance, renal impairment. Glucose 104. Urinalysis unremarkable. Influenza, RSV, COVID screens were all negative. Chest x-ray imaging, per radiologist reveals no acute findings Patient improved with fluids during ED course. Favor upper respiratory infection, cough, right nonspecific rash, mild dehydration, fever Pneumonia, PE less likely based on imaging COVID, influenza, RSV less likely based on lab testing UTI less likely based on lab testing. History and Record Review Discussion with independent historian: Additional records reviewed: Prior labs from January 2024 Management Independent interpretation: Chest x-ray: Mass noted left upper lobe. No infiltrate, edema Additional Tests and Interventions ECG: See above IV Fluids:hydration/inability to tolerate PO Re-Evaluation See ED course Disposition ? The patient was discharged. Prescriptions sent to pharmacy: Doxycycline, Tessalon Perle Plan: Patient will be discharged to home.? Condition at time of disposition: stable, improved.? Advised to follow up with primary provider. Advised to return for any worsening and/or development of new, concerning signs or symptoms Admission considered: patient improved during ED course, no other diagnostic or clinical findings to warrant admission PLEASE NOTE: Portions of the medical record may have been produced using electronic intake clerk and may contain errors with respect to translation of words which may not have been identified prior to finalization of the chart. I, Dr Walter, have reviewed the above progress note and course of action in the ER; agree with the above. I have personally gone over history and physical, and discussed disposition and treatment plan with the PA. Lab Data Labs: Lab Results 09/19/24 09/19/24 09/19/24 Range/Units 13:35 14:13 15:15 WBC 6.5 (4.0-11.0) 10^3/uL RBC 3.59 L (4.20-5.40) 10^6/uL Hgb 10.1 L (12.0-16.0) g/dL Hct 32.4 L (36.0-48.0) % MCV 90.3 (81.0-99.0) fL MCH 28.1 (26.7-34.0) pg MCHC 31.2 (29.9-35.2) g/dL RDW 14.9 (11.0-15.0) % Plt Count 252 (150-450) 10^3/uL MPV 10.6 (9.5-13.5) fL Seg Neuts % (Manual) 84.0 H (43.0-75.0) Band Neutrophils % 2.0 (0-5) % Lymphocytes % (Manual) 7.0 L (20.5-60.0) % Monocytes % (Manual) 2.0 (1.7-12.0) % Eosinophils % (Manual) 4.0 (0.9-7.0) % Basophils % (Manual) 1.0 (0.2-2.0) % Neutrophils # (Manual) 5.46 (1.4-6.5) 10^3/uL Band Neutrophils # 0.1 (0.0-0.3) 10^3/uL Lymphocytes # (Manual) 0.45 L (1.20-3.80) 10^3/uL Monocytes # (Manual) 0.13 L (0.30-0.80) 10^3/uL Eosinophils # (Manual) 0.26 (0.00-0.70) 10^3/uL Basophils # (Manual) 0.06 (0.00-0.10) 10^3/uL Dohle Bodies 1+ Anisocytosis 1+ Ovalocytes 1+ Sodium 134 L (136-145) mmol/L Potassium 5.0 (3.5-5.1) mmol/L Chloride 96 L (98-107) mmol/L Carbon Dioxide 30.0 (21.0-32.0) mmol/L Anion Gap 13.0 BUN 9.0 (7.0-18.0) mg/dL Creatinine 0.65 (0.55-1.02) mg/dL Est GFR ( Amer) >60 (>=60 mL/min/1.73m^2) Est GFR (Non-Af Amer) >60 (>=60 mL/min/1.73m^2) BUN/Creatinine Ratio 13.8 Glucose 104 (74-106) mg/dL Lactate 1.3 (0.4-2.0) mmol/L Calcium 8.8 (8.5-10.1) mg/dL Total Bilirubin 0.6 (0.2-1.0) mg/dL AST 24 (15-37) U/L ALT 43 (14-59) U/L Alkaline Phosphatase 140 H (46-116) U/L Total Protein 6.9 (6.4-8.2) g/dL Albumin 2.2 L (3.4-5.0) g/dL Globulin 4.7 g/dL Albumin/Globulin Ratio 0.5 Urine Color Lt. yellow (YELLOW) Urine Clarity Clear (CLEAR) Urine pH 8.0 (5.0-9.0) Ur Specific [place] 1.020 (1.005-1.025) Urine Protein 30 A (NEG/TRACE) mg/dL Urine Glucose (UA) Negative (NEGATIVE) mg/dL Urine Ketones Negative (NEGATIVE) mg/dL Urine Occult Blood Negative (NEGATIVE) Urine Nitrite Negative (NEGATIVE) Urine Bilirubin Negative (NEGATIVE) Urine Urobilinogen 0.2 (0.2-1.0) EU/dL Ur Leukocyte Esterase Trace A (NEGATIVE) Urine RBC 0-2 (0-2) #/HPF Urine WBC 2-5 A (NONE SEEN) #/HPF Ur Squamous Epith Cells Few A (NONE/RARE) #/LPF Urine Crystals None seen (None Seen) #/HPF Urine Bacteria Trace A (NONE SEEN) #/HPF Urine Casts None seen (NONE SEEN) #/LPF Urine Mucus None seen (NONE SEEN) Ur Culture Indicated? No Influenza Type A Ag Negative Influenza Type B Ag Negative RSV Antigen Not detected (NOT DETECTE) SARS-CoV-2 Ag (CV2AG) Negative (NEGATIVE) Discharge Plan Discharge Chief Complaint: Shortness of Breath/Dyspnea Clinical Impression: Dehydration, mild, Rash and nonspecific skin eruption Cough Qualifiers: Cough type: acute Qualified Code(s): R05.1 - Acute cough Fever Qualifiers: Fever type: unspecified Qualified Code(s): R50.9 - Fever, unspecified Patient Disposition: Home, Self-Care Time of Disposition Decision: 16:25 Condition: Good Mode of Transportation: Private Vehicle Prescriptions / Home Meds: New doxycycline hyclate 100 mg capsule 100 mg PO BID 7 Days Qty: 14 0RF benzonatate 200 mg capsule 200 mg PO TID PRN (Reason: cough) Qty: 20 0RF No Action ezetimibe 10 mg tablet 10 mg PO DAILY propranolol 60 mg tablet 60 mg PO DAILY PRN (Reason: tremor) phentermine 37.5 mg tablet 37.5 mg PO DAILY fluoxetine 20 mg capsule 20 mg PO DAILY levothyroxine 25 mcg tablet 25 mcg PO DAILY meloxicam 15 mg tablet 15 mg PO DAILY modafinil 200 mg tablet 200 mg PO DAILY PRN (Reason: narcolepsy) acetylcysteine [NAC] 600 mg capsule 600 mg PO DAILY multivitamin [Daily Multi-Vitamin] Tablet 1 tab PO DAILY vit A-vit C-vit S-vyxb-ggriyf 7,160-113-100 [id number]-ls-[id number] tablet cholecalciferol (vitamin D3) 25 mcg (1,000 unit) capsule 25 mcg PO DAILY Print Language: Citizen Of [place] Instructions: Dehydration (ED), Fever in Adults (ED), Upper Respiratory Infection (ED), Acute Rash (ED) Referrals: ASYA CLEMENTS DO [Primary Care Provider] - 1 week Discharge Date/Time: 09/19/24 16:53
== END 2024-09-19 16:53 | disposition home or self-care (01) ==
PROVIDERS: Physician Assistant; Emergency Provider Emergency Medicine; PCP Internal Medicine
DX: E86.0 Dehydration (principal); R50.9 Fever, unspecified; R06.02 Shortness of breath; C34.90 Malignant neoplasm of unspecified part of unspecified bronchus or lung; Z79.60 Long term (current) use of unspecified immunomodulators and immunosuppressants; Z87.891 Personal history of nicotine dependence; R21 Rash and other nonspecific skin eruption; R05.1 Acute cough
CPT/HCPCS: 36415; 71045; 71275; 80053; 81001; 83605; 85007; 85027; 87040; 87420; 87804; 87811; 93005; 96365; 99285; J0696; Q9967

== ENCOUNTER 2024-12-14 16:51 | Outpatient (OUT) | payer MEDICARE, OTHER, SELFPAY | END 2024-12-14 16:52 | disposition home or self-care (01) | PROVIDERS: PCP Internal Medicine; Visit Provider Physician Assistant Medical | DX: C34.81 Malignant neoplasm of overlapping sites of right bronchus and lung (principal); M79.621 Pain in right upper arm; M79.89 Other specified soft tissue disorders; E04.2 Nontoxic multinodular goiter | CPT/HCPCS: 93971 ==

== ENCOUNTER 2024-12-22 08:42 | Outpatient (OUT) | payer MEDICARE, OTHER, SELFPAY ==
--- OUTSIDE RECORDS SUMMARY | 2024-04-21 07:40 | XMS_ITS ---
Author Organization [facility] [place] Address [address] [place] [address] Care Team Providers Care Right Of Way Appraiser Name Role Phone Gerson Gonzalez DO Primary Care Provider Unavail nirav Soen Dianne Unavailable [phone] Allergies No Known Allergies REASON FOR VISIT painful bump on LT foot Medications Medication SIG (Take, Route, Fr equency, Duration) Notes Start Date End Date Status Vitamin D Active Vitamin B-12 Active magnesium oxide Act jeffrey Gabapentin 300 MG Orally No t-Taking clonazePAM 0.5 MG Orally N ot-Taking Meloxicam 15 MG 1 tablet Orally Once a day for 30 days 04/21/2024 Active PROzac 20 MG 1 capsule Orally Once a day Active Zetia 10 MG 1 tablet Orally Once a day 04/21/2024 Active Calcium Active Problems Problem Type SNOMED Code ICD Code Onset Dates Problem Status W/U Status Risk Notes Problem [id number] Plantar fascia l fibromatosis (M72.2) Active confirmed Problem [id number] Other congenit al malformations of lower limb(s), 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 Vital Signs Temperature 97.7 degrees Fahrenheit 04/21/20 Heart Rate 76 /min 04/21/2024 Respiratory Rate 16 /min 04/21/2024 Height 70 in 04/21/2024 Weight 210 lbs 04/21/2024 BMI 30.13 kg/m2 04/21/2024 Oximetry 98 % 04/21/2024 Encounters Encounter Location Date Provider Diagnosis [facility] (PODIATRY) [address] [place] [address] [place] [address] 04/21/2024 Dianne Thakur Posterior tibial tendinitis, left leg M76.822 ; Other congenital malformations of lower limb(s), 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 History, imaging, and physical examination are consistent with posterior tibial tendinitis and plantar fasciitis. I recommend: -ASO bracing -NSAIDs, meloxicam was called into her pharmacy -Aggressive calf stretching routine -Physical therapy was offered but she declined Follow-up in 4 to 6 weeks, sooner if any issues arise. No additional x-rays are necessary at that time. 04/21/2024 Other congenital malformations of lower limb(s), including pelvic girdle (ICD-10 - Q74.2) 04/21/2024 Plantar fascial fibromatosis (ICD-10 - M72.2) 04/21/2024 Left foot pain (ICD-10 - M79.672) Plan Of Treatment Medication Medication Name Sig Start Date Stop Date Notes Meloxicam 15 MG 1 tablet Orally Once a day for 30 days 09/2023 Treatment Notes Assessment Notes Posterior tibial tendinitis, left leg The patient is a 68-year-old female known to our practice who presents for a new problem of left medial foot and ankle pain that started 1 week ago. History, imaging, and physical examination are consistent with posterior tibial tendinitis and plantar fasciitis. I recommend: -ASO bracing -NSAIDs, meloxicam was called into her pharmacy -Aggressive calf stretching routine -Physical therapy was offered but she declined Follow-up in 4 to 6 weeks, sooner if any issues arise. No additional x-rays are necessary at that time. Pending Test Test Name Order Date XR Foot LT (3 views) * 04/21/2024 Next Appt Details Follow Up: 4 Weeks, Reason: Progress Notes * Ofe SARAVIA KDOB: [birth year] (68 yo F)Acc No.[id number]:04/21/2024 Follow Up Patient: Ofe AMIN Provider: Skinny Thakur PA-C :1955 A ge:68 Y S ex:Female Date:04/21/2024 Address:[facility] [address], [place], [place] Pcp:Gerson Gonzalez, DO Check In:11:32 AM ESTCheck O ut:12:05 PM EST Subjective: * Chief Complaints: * p ainful bump on LT foot * HPI: G eneral: States that she developed pain to left medial midfoot 3 weeks ago, noticed a lump that hasn't gone away. Rates pain 5/10. Also states thinks she has plantar fasciitis starting in her left platar heel area that hurts more when she wakes up in am or sitting for a long time. * ROS: G eneral/Constitutional: Chills d enies. F ever d enies. W eight gain?denies. W eight loss d enies. S kin: Skin Ulcers d enies. S kin lesion(s) d enies. ? C ardiovascular: Difficulty breathing on exertion d enies. L eg cramps?denies. E tyler d enies. C hest pain d enies. R espiratory: Difficulty breathing d enies. D yspnea d enies.?Cough d enies. G astrointestinal: Diarrhea d enies. N ausea d enies. V omiting?denies. M usculoskeletal: Bone/Joint Symptoms d enies. C adriana Pain d enies.?Leg cramps d enies. N eurologic: Numbness d enies. T ingling d enies . G ait abnormality d enies. ? H ematology: Anemia D enies. E asy bruising d enies. ? A ll Other Systems: Review of Systems (ROS) S ee HPI for details,All others negative except those mentioned in HPI. 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 M other: alive, ;, diagnosed with Unspecified essential hypertension. M igrated Family History:: Father ;Family history of Cancer ;. S ister(s): diagnosed with Unspecified essential hypertension. MGF-STROKE MOTHER-BREAST CA FATHER-KIDNEY CA & BRAIN ANEURYSM. * Social History: T obacco Use: T obacco Use/Smoking P atient is a : former smoker.? * Medications: T akingCalcium magnesium oxide PROzac(FLUoxetine HCl) 20 MG Capsule 1 capsule Orally Once a day Vitamin B-12 Vitamin D Zetia(Ezetimibe) 10 MG Tablet 1 tablet Orally Once a day Taking Calcium Taking magnesium oxide Taking PROzac(FLUoxetine HCl) 20 MG Capsule 1 capsule Orally Once a day Taking Vitamin B-12 Taking Vitamin D Taking Zetia(Ezetimibe) 10 MG Tablet 1 tablet Orally Once a day Not- Taking/PRNclonazePAM 0.5 MG Tablet Orally Gabapentin 300 MG Capsule Orally Medication List reviewed and reconciled with the patientNot-Taking/PRN clonazePAM 0.5 MG Tablet Orally Not-Taking/PRN Gabapentin 300 MG Capsule Orally Medication List reviewed and reconciled with the patient * Allergies: N .K.D.A.no[Allergies Verified] Objective: * Vitals: W t:210lbs, Ht:70in, Temp:97.7F, HR:76/min, RR:16/min, BMI:30.13Index, Pain scale:51-10, Oxygen sat %:98%, Ht-cm: 177.8 cm, Wt-k.25 kg. * Examination: P odiatry Examination: SKIN: s kin intact, n o sign of infection. MUSCULOSKELETAL: L eft foot mild flatfoot deformity in stance pain with palpation of the navicular tuberosity and plantar heel Inversion against resistance elicits pain Hindfoot range of motion is decreased Strength 5/5 in plantarflexion and dorsiflexion against resistance Ankle joint dorsiflexion is to neutral but not past with knee extended. NEUROLOGICAL: L ight touch sensation is intact in all nerve distributions, Negative Tinel sign. VASCULAR: P alpable pedal pulses bilaterally, No swelling, No calf pain on squeeze. X -ray 3 view foot obtained in the office today and reviewed: No evidence of acute trauma or stress fracture. Mild accessory navicular present. Assessment: * Assessment: 1. P osterior tibial tendinitis, left leg - M76.822 (Primary) 2 . 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 P lantar fascial fibromatosis - M72.2 4 . L eft foot pain - M79.672 Plan: * Treatment: 2. L eft foot pain I maging: XR Foot LT (3 views) * * Procedure Codes: * Follow Up: 4 Weeks * * Sign off status: Completed Visit Status: C HK (Check Out) true * Provider: Skinny Thakur PA-C Date: 1 Generated for Aaron martin/Vivienne/Albaitting on: 0 12/22/2024 08:48 AM EDT History and Physical Notes * HPI (History of Present Illness) Category Sub-Category Detail Notes Category Not es General States that she developed pain to left medial midfoot 3 weeks ago, noticed a lump that hasn't gone away. Rates pain 5/10. Also states thinks she has plantar fasciitis starting in her left platar heel area that hurts more when she wakes up in am or sitting for a long time. Examination Category Sub-Category Detail Notes Category Not es Podiatry Examination SKIN: skin intact, no sign of infection X-ray 3 view foot obtained in the office today and reviewed: No evidence of acute trauma or stress fracture. Mild accessory navicular present MUSCULOSKELETAL: Left foot mild flatf oot deformity in stance pain with palpation of the navicular tuberosity and plantar heel Inversion against resistance elicits pain Hindfoot range of motion is decreased Strength 5/5 in plantarflexion and dorsiflexion against resistance Ankle joint dorsiflexion is to neutral but not past with knee extended NEUROLOGICAL: Light touch sensatio n is intact in all nerve distributions, Negative Tinel sign VASCULAR: Palpable pedal pulse s bilaterally, No swelling, No calf pain on squeeze
--- OUTSIDE RECORDS SUMMARY | 2024-05-26 09:20 | XMS_ITS ---
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 Name Role Phone Gerson Gonzalez DO Primary Care Provider Unavail able Dianne Thakur Unavailable [phone] Allergies No Known Allergies REASON FOR VISIT 5 week f/u Medications Medication SIG (Take, Route, Fr equency, Duration) Notes Start Date End Date Status clonazePAM 0.5 MG Orally N ot-Taking PROzac 20 MG 1 capsule Orally Once a day Active Vitamin B-12 Active Vitamin D Active Zetia 10 MG 1 tablet Orally Once a day 04/21/2024 Active Gabapentin 300 MG Orally No t-Taking Calcium Active magnesium oxide Act jeffrey Meloxicam 15 MG 1 tablet Orally Once a day for 30 days 04/21/2024 Not-Taking Vital Signs Temperature 96.8 degrees Fahrenheit 05/26/20 24 Heart Rate 82 /min 05/26/2024 Height 70 in 05/26/2024 Weight 210 lbs 05/26/2024 BMI 30.13 kg/m2 05/26/2024 Oximetry 98 % 05/26/2024 Encounters Encounter Location Date Provider Diagnosis [facility] (PODIATRY) [address] [place] [address] [place] [address] 05/26/2024 Dianne Thakur Posterior tibial tendinitis, left leg M76.822 and Other congenital malformations of lower limb(s), 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 She did think the meloxicam was helping when she was able to take it.She does not want to pursue physical therapy.I encouraged her to try on different ogvz-lyz-xbmiwuf ankle braces to see if she is able to find one that is more comfortable. She could also try gtmp-eip-yszxwha shoe inserts.Foot soaks and massage were encouraged.Follo w-up in 4 to 6 weeks, sooner if any issues arise. No x-rays necessary at that time. 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 She did think the meloxicam was helping when she was able to take it.She does not want to pursue physical therapy.I encouraged her to try on different cahr-cak-kabbyzd ankle braces to see if she is able to find one that is more comfortable. She could also try hptd-mdb-qepyjfz shoe inserts.Foot soaks and massage were encouraged.Follow-up in 4 to 6 weeks, sooner if any issues arise. No x-rays necessary at that time. Other congenital malformatio ns of lower limb(s), including pelvic girdle Accessory navicular Next Appt Details Follow Up: 6 Weeks, Reason: Progress Notes * Ofe SARAVIA KDOB: [birth year] (68 yo F)Acc No.[id number]:05/26/2024 Follow Up Patient: Ofe AMIN Provider: Skinny Thakur PA-C :1955 A ge:68 Y S ex:Female Date:05/26/2024 Address:[facility] [address], [place], [id number] Pcp:Gerson Gonzalez, DO Check In:01:16 PM ESTCheck O ut:01:33 PM EST Subjective: * Chief Complaints: * 5 week f/u * HPI: G eneral: f/u left foot pain, no injury. States has been using the ASO brace but states it hits her in medial midfoot area and causes more pain when her foot swells. Wants to know if we can recommend another type of brace for her. States had to stop the meloxicam 1 week ago due to going to have surgical procedure for kidney stones and was told to go off of it right now. rates pain 5/10 to medial left midfoot . Has not been doing stretching due to hasn't had time . * ROS: G eneral/Constitutional: Chills d enies. 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, bilateral Modified On:11/04/2016/U Status:confirmed M17.11 Primary osteoarthrit is of right knee Modified On:12/19/2016W/U Status:confirmed M17.12 Primary osteoarthrit is of left knee Modified On:05/25/2021W/U Status:confirmed M79.672 Left foot pain Modified On:04/21/2024/U Status:confirmed Q74.2 Other congenital mal formations of lower limb(s), including pelvic girdle Modified On:04/21/2024/U Status:confirmed M72.2 Plantar fascial fibr omatosis Modified On:04/21/2024U Status:confirmed * Medical History: * Surgical History: S urgical / procedural history Brainstem resection of cavernous malformation in 10/26 2009Surgical / procedural history Brainstem resection of cavernous [...] Tablet Orally Gabapentin 300 MG Capsule Orally Meloxicam 15 MG Tablet 1 tablet Orally Once a day Medication List reviewed and reconciled with the patientNot-Taking/PRN clonazePAM 0.5 MG Tablet Orally Not-Taking/PRN Gabapentin 300 MG Capsule Orally Not-Taking/PRN Meloxicam 15 MG Tablet 1 tablet Orally Once a day Medication List reviewed and reconciled with the patient * Allergies: N .K.D.A.no[Allergies Verified] Objective: * Vitals: W t:210lbs, Ht: 70 in, Temp:96.8F, HR:82/min, BMI:30.13Index, Pain scale:51-10, Oxygen sat %:98%, Ht-cm: 177.8 cm, Wt-k.25 kg. * Examination: P odiatry Examination: SKIN: s kin intact, n o sign of infection. MUSCULOSKELETAL: L eft foot mild flatfoot deformity in stance pain with palpation of the navicular tuberosity No pain with palpation plantar heel Inversion against resistance elicits pain Hindfoot range of motion is decreased Strength 5/5 in plantarflexion and dorsiflexion against resistance Ankle joint dorsiflexion is to neutral but not past with knee extended. . NEUROLOGICAL: L ight touch sensation is intact in all nerve distributions, Negative Tinel sign. VASCULAR: P alpable pedal pulses bilaterally, No swelling, No calf pain on squeeze. Assessment: * Assessment: 1. P osterior tibial tendinitis, left leg - M76.822 (Primary) 2 . O ther congenital malformations of lower limb(s), including pelvic girdle - Q74.2 Plan: * Treatment: 2. O ther congenital malformations of lower limb(s), including pelvic girdle Notes: Accessory navicular Clinical Notes: Accessory navicular * Procedure Codes: * Follow Up: 6 Weeks * * Sign off status: Completed Visit Status: C HK (Check Out) true * Provider: Skinny Thakur PA-C Date: 07/26/2023 Generated for Aaron martin/Vivienne/Albaitting on: 0 12/22/2024 08:47 AM EDT History and Physical Notes * HPI (History of Present Illness) Category Sub-Category Detail Notes Category Not es General f/u left foot p ain, no injury. States has been using the ASO brace but states it hits her in medial midfoot area and causes more pain when her foot swells. Wants to know if we can recommend another type of brace for her. States had to stop the meloxicam 1 week ago due to going to have surgical procedure for kidney stones and was told to go off of it right now. rates pain 5/10 to medial left midfoot . Has not been doing stretching due to hasn't had time Examination Category Sub-Category Detail Notes Category Not es Podiatry Examination SKIN: skin intact, no sign of infection MUSCULOSKELETAL: Left foot mild flatf oot deformity in stance pain with palpation of the navicular tuberosity No pain with palpation plantar heel Inversion against resistance elicits pain Hindfoot range of motion is decreased Strength 5/5 in plantarflexion and dorsiflexion against resistance Ankle joint dorsiflexion is to neutral but not past with knee extended. NEUROLOGICAL: Light touch sensatio n is intact in all nerve distributions, Negative Tinel sign VASCULAR: Palpable pedal pulse s bilaterally, No swelling, No calf pain on squeeze
--- OUTSIDE RECORDS SUMMARY | 2024-07-07 09:20 | XMS_ITS ---
Author Organization The [facility] in [place] Address [address] [place] [address] Care Team Providers Care Bun Icer Name Role Phone Gerson Gonzalez DO Primary Care Provider Unavail Dianne Connor Unavailable [phone] REASON FOR VISIT 6 week f/u Encounters Encounter Location Date Provider Diagnosis [facility] (PODIATRY) [address] [place] [address] [place] [address] 07/07/2024 Dianne Thakur Plan Of Treatment No Information Progress Notes * RANI Ofe KDOB: 7 (69 yo F)Acc No.[id number]:07/07/2024 UNLOCKED PROGRESS NOTE Follow Up Patient: Ofe AMIN Provider: Skinny Thakur PA-C :1955 A ge:68 Y S ex:Female Date:07/07/2024 Address:[facility] [address] DrCED[facility]OSPITALLM-[address] Pcp:Gerson Gonzalez DO Subjective: * Chief Complaints: * 1 . 6 week f/u. * Medical History: Objective: * Vitals: Assessment: Plan: * Treatment: * * Electronic signature of Gordon Thakur PA-C on 12/22/2024 at 08:47 AM EDT Sign off status: Pending Visit Status: C ANC (Cancelled) * Provider: Skinny Thakur PA-C Date: 1 09/07/2023 Generated for Printi ng/Faxing/eTransmitting on: 0 12/22/2024 08:47 AM EDT
--- OUTSIDE RECORDS SUMMARY | 2024-12-14 10:00 | XMS_ITS | Encounter Summary ---
Author Organization [facility] Address [address] [place], [place] [id number] Care Team Providers Care Christian Science Practitioner Name Role Phone Lisa Carson DO, Charles Lewis Primary Care Provi heladio Lisa Carson DO, Charles Lewis Unavailable [phone] Ghislaine Thakur RN Unavailable [phone] Nicholas Gracia MD Unavailable [phone] Dianne Keller APRN.BODY TECHNICIAN Unavailable + Jazmyne Bryson RN Unavailable Unavail able Danielle Castellon Unavailable Unavailable Source Comments In the event this information is protected by the Federal Confidentiality of Alcohol and Drug AbusePatient Records regulations: The Federal rules restrict any use of the information to criminally investigate or prosecute any alcohol or drug abuse patient.[facility] Reason for Referral * Diagnostic Procedure Only (Urgent) - New Request Specialty Diagnoses / Procedures Referred By Contac t Referred To Contact US IMAGING Diagnoses Malignant neoplasm of overlapping sites of right lung (HCC) Pain of right upper arm Swelling of arm Procedures US DVT UPPER RIGHT US DVT UPPER RIGHT DUP-SCAN XTR VEINS UNILATERAL/LIMITED STUDY Josie Arcos PA-C [address] [place] [address] [place] [address] Phone: tel: fax: [place] [phone] Referral ID Status Reason Start Date Expiration Date Visits Requested Visits Authorized [id number] New Request Auto-Generat ed Referral 12/14/2024 01/13/2026 1 1 * MRI/CT (Routine) - New Request Specialty Diagnoses / Procedures Referred By Contac t Referred To Contact MR IMAGING Diagnoses Malignant neoplasm of overlapping sites of right lung (HCC) Metastatic cancer to bone (HCC) Malaise and fatigue Pain of right upper arm Swelling of arm Procedures MRI SHOULDER WO/W IVCON RIGHT MRI ANY JT UPPER EXTREMITY W/O & W/CONTR MATRL Josie Arcos PA-C [address] [place] [address] [place] [address] Phone: tel: fax: [place] [phone] Referral ID Status Reason Start Date Expiration Date Visits Requested Visits Authorized [id number] New Request Auto-Generat ed Referral 12/14/2024 01/13/2026 1 1 Reason for Visit * Reason Comments Lung Cancer Encounter Details Date Type Department Care Team (Latest Contact Info) Description 12/14/2024 10:00 AM EDT Visit (SP) Office Hematology/Oncology [address] [place] [address] [place] [address] Josie Arcos PA-C [address] [place] [address] [place] [address] Malignant neoplasm of overlapping sites of right lung (HCC) (Primary Dx); Metastatic cancer to bone (HCC); Malaise and fatigue; Pain of right upper arm; Swelling of arm Social History Tobacco Use Types Packs/Day Years Used Date Smoking Tobacco: Former Cigarettes 1.5 18 0 07/20/1981 - 07/20/1999 Smokeless Tobacco: Never Alcohol Use Standard Drinks/Week Comments No 0 (1 standard drink = 0.6 oz pur e alcohol) PHQ-2 Answer Date Recorded PHQ-2 score 2 09/20/2024 Area Deprivation Index Answer Date Mac rded National Score (1-100), lower number is lower ri sk 87 04/10/2023 State Score (1-10), lower number is lower risk 8 04/10/2023 Data from: https://www.neighborhoodatlas.medicine.[facility]/. Last address used for calculation [address] 04/10/2023 Comments No Sex and Gender Information Value Date Recorded Sex Assigned at Not on file Legal Sex Female 9:48 AM EST Gender Identity Female 12/12/2021 11:07 AM EDT Sexual Orientation Not on file Occupation Industry Job Start Date Job End Date disabled Not on file Not on file Not on file documented as of this encounter Last Filed Vital Signs Vital Sign Reading Time Taken Comments Blood Pressure 120/69 12/14/2024 9:52 AM EDT Pulse 82 12/14/2024 9:52 AM EDT Temperature 36.2 C (97.2 F) 12/14/2024 9:52 AM EDT Respiratory Rate 16 12/14/2024 9:52 AM EDT Oxygen Saturation 94% 12/14/2024 9:52 AM EDT Inhaled Oxygen Concentration - - Weight 86.8 kg (191 lb 5.8 oz) 12/14/2024 9:52 A M EDT Height 172 cm (5' 7.72 ) 12/14/2024 9:52 AM EDT Body Mass Index 29.34 12/14/2024 9:52 AM EDT documented in this encounter Functional Status * Are you deaf or do you have serious difficulty hearing? Answer Date of Assessment Author Yes 09/15/2014 12:58 PM Penny Martinez MA * Are you blind or do you have serious difficulty seeing, even when wearing glasses? Answer Date of Assessment Author Yes 09/15/2014 12:58 PM Penny Martinez MA * Do you have serious difficulty walking or climbing stairs? Answer Date of Assessment Author No 09/15/2014 12:58 PM EST Penny Nath MA * Do you have difficulty dressing or bathing? Answer Date of Assessment Author No 09/15/2014 12:58 PM Penny Martinez MA * Because of a physical, mental, or emotional condition, do you have difficulty doing errands alone such as visiting a doctor's office or shopping? Answer Date of Assessment Author Yes 09/15/2014 12:58 PM Penny Martinez MA documented as of this encounter Mental Status * Because of a physical, mental, or emotional condition, do you have serious difficulty concentrating, remembering, or making decisions? Answer Entry Date Author No 09/15/2014 12:58 PM Penny Martinez MA documented in this encounter Progress Notes * Josie Arcos PA-C - 12/14/2024 10:00 AM EDT Images from the original note were not included. PATIENT NAME: Ofe Stephenson CLINIC NO.: [id number] ATTENDING PHYSICIAN: Nicholas Gracia MD DATE OF SERVICE: 12/14/24 Some of the elements of this note have been copied from Dr. Gracia's previous progress note dated 11/23/24. All the information has been reviewed carefully. CHIEF COMPLAINT: Lung cancer HPI: Ofe Stephenson is a 69 year old year old female with PMH of CVA, anxiety. Ms. Stephenson first developed right shoulder pain this past April which persisted despite conservative measures. She brought this to the attention of her PCP who ordered an MRI of the right shoulder. The scan was performed on 07/01/2024 which revealed an expansile lesion involving the anterosuperioraspect of the glenoid with extension to the adjacent base of the coracoid process and soft tissues, associated with a displaced pathologic fracture of the coracoid process. Further workup with CT CAP revealed a NITISH mass (3.4 x 2.9 x 3.1 cm) with adjacent satellite nodulesand redemonstrated the lytic lesion involving the right scapula in addition to a right iliac metastasis. Biopsy of the right shoulder soft tissue mass was performed on 08/10/2024 and returned positive for metastatic squamous cell carcinoma (IHC positive for CK5/6 and p40; negative for TTF-1, CDX2, GATA3). Biomarker studies are pending. She met with Dr. Cuevas from rad onc at [facility] who recommended palliative RT closer to home, at [facility]. Venus is a former smoker, having quit 25 years ago after smoking about 1.5 PPD for 18 years. Completed Radiation- Total of 5 treatments. No alcohol. Able to eat and drink good. 09/22/2024: Patient presents today for a toxicity check- Patient started C1D1 on 09/14/2024. Overall patient isfeeling ok today. She denies any grade 3 or 4 toxicities. Diarrhea 2 days after chemo, lasted 3 days- took imodium and that was helpful. Has fatigue. Peripheral neuropathy in toes and fingers- suggested vitamin B- complex and Alpha Lipoic Acid. Denies, fever, chills, N/V, or dizziness. Good appetite. SOB staying the same. Patient is following with palliative care. Has a erythremic rash/burn on right upper neck- see image below. Denies itching, but feels like it is burning. Patient had radiation in this area. Prescribed Silvadene. ANC today is 7.57 10/12/2024: Ofe presents today for C2D1 of Taxol/Carbo/Keytruda. Patient denies any grade 3 or 4 toxicities. Overall tolerated cycle 1 well. Patient has seen her dentist who advises against Xgeva at this time due to several several tooth problems. Patient denies fever, chills, nausea vomiting, dizziness, shortness of breath. Patient states her energy level has improved. She has a good appetite. Previous visit she had an erythemic rash/burn on her upper neck from radiation. Prescribed Silvadene and rash has resolved. Peripheral neuropathy is staying the same no worse. Labs appropriate for treatment today. Will proceed. 09/14/24: - PD-L1 TPS - 50% - Hospitalized from 09/07-09/13 - Recd blood transfusion and iron infusion - Completed radiation on 08/31/24. - Denies any bleeding. - Did not find etiology for fever. 11/02/24: - Had constipation, dizziness, neuro side effects. - Dentist did not clear her for Xgeva - C/o right shoulder pain. - Hip pain is resolved. 11/23/24: - Doing well - Side effects are better - PET scan on 11/15/24 - C/o worsening pain in right shoulder. 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 Current Outpatient Medications Medication Sig primidone (MYSOLINE) 50 mg tablet Take 25-50 mg by mouth daily at bedtime. torsemide (DEMADEX) 20 mg tablet [facility] gabapentin (NEURONTIN) 100 mg capsule TAKE 1 CAPSULE (100 MG) BY MOUTH IN THE MORNING AND BEFORE BEDTIME benzonatate (TESSALON PERLES ORAL) Take by mouth. albuterol HFA (PROVENTIL HFA, VENTOLIN HFA) 90 mcg/actuation inhaler Inhale 2 Puffs as instructed every 6 hours as needed for wheezing/shortness of breath. prochlorperazine (COMPAZINE) 10 mg tablet Take 1 tablet by mouth every 6 hours as needed. ondansetron (ZOFRAN) 8 mg tablet Take 1 tablet by mouth every 8 hours as needed for nausea/vomiting. naloxone 4 mg/actuation nasal spray (NARCAN) Use 1 spray in one nostril as needed for overdose. Mayrepeat every 2 to 3 min in alternating nostrils until medical assistance is available acetaminophen (TYLENOL) 325 mg tablet Take 325 mg by mouth as needed for pain. levothyroxine (SYNTHROID) 25 mcg tablet Take 25 mcg by mouth once daily. FLUoxetine (PROZAC) 20 mg capsule Take 20 mg by mouth once daily. ezetimibe (ZETIA) 10 mg tablet Take 10 mg by mouth once daily. vitamin b complex tab Take 1 tablet by mouth once daily. ASCORBIC ACID (VITAMIN C ORAL) Take by mouth. Magnesium Oxide-Mg Amino Acid Chelate 300 mg cap Take 300 mg by mouth daily at bedtime. CHOLECALCIFEROL (VITAMIN D3) 2,000 UNIT CAP Take one(1) tablet daily. No current facility-administered medications for this visit. 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 EYE SURGERY PROCEDURE 06/05/2008 Right medial rectus recession by 5 mm. EYE SURGERY PROCEDURE 03/15/2007 Transposition procedure right eye PAST SURGICAL HISTORY OF 1996 - C section, 1994 - D&C PAST SURGICAL HISTORY OF 10/26 brain stem cavernoma resection PAST SURGICAL HISTORY OF Facial plastic surgery PAST SURGICAL HISTORY OF 06/2013 Tempromandicular Joint (R), TMJ UNLISTED PROCEDURE EXTRAOCULAR MUSCLE 10/31/2013 E.Traboulsi Recession of right medial rectus in the presence of previous eye muscle surgery and scarring FAMILY HISTORY Problem Relation Age of Onset Arthritis Mother Hypertension Mother Lipids Mother Thyroid Mother Cataract Mother Alcohol/Drug Father other (kidney cancer) Father Arthritis Sister Hypertension Sister Lipids Sister Thyroid Sister Coronary Artery Disease Brother Breast Cancer Maternal Grandmother 40 - 49 Thyroid Paternal Grandmother Ovarian cancer Maternal Aunt Glaucoma No Family History Detached Retina No Family History Macular Degen No Family History Blindness No Family History Amblyopia No Family History Social History Tobacco Use Smoking status: Former Current packs/day: 0.00 Average packs/day: 1.5 packs/day for 18.0 years (27.0 ttl pk-yrs) Types: Cigarettes Start date: 07/20/1981 Quit date: 07/20/1999 Years since quittin.4 Smokeless tobacco: Never Vaping Use Vaping status: Never Used Substance Use Topics Alcohol use: No Drug use: No Comment: denies tx for drug/alcohol abuse in the past. REVIEW OF SYSTEMS GENERAL: No weight loss, malaise or fevers. No night sweats. HEENT: Negative for headaches, No changes in hearing or vision, no nose bleeds or other nasal problems. RESPIRATORY: Negative for cough, wheezing and shortness of breath CARDIOVASCULAR: Negative for chest pain, leg swelling and palpitations GI: Negative for abdominal discomfort, blood in stools or black stools and change in bowel habits : Negative for dysuria, frequency and incontinence MUSCULOSKELETAL: +see HPI for right arm pain SKIN: Negative for lesions, rash, and itching. HEMATOLOGY/LYMPHOLOGY Negative for prolonged bleeding, bruising easily, and swollen nodes. NEURO: Negative for numbness or tingling of hands/feet. No weakness. PHYSICAL EXAMINATION: BP 120/69 Pulse 82 Temp 36.2 ??C (97.2 ??F) (Temporal) Resp 16 Ht 172 cm (5' 7.72 ) Wt 86.8 kg (191 lb 5.8 oz) LMP 05/24/2007 SpO2 94% BMI 29.34 kg/m?? General appearance:ECOG PERFORMANCE STATUS: 3- Capable of only limited selfcare, confined to bed/chair > 50% of waking hrs. General: Alert and oriented, no distress, pleasant and cooperative. +chronic facial droop Heart: Regular, normal S1 and S2, no murmurs, rubs, or gallops Lungs: Clear to auscultation bilaterally Abdomen: Benign Extremities: Feet/ankles without edema; right upper arm with mild swelling, no erythema LABS: Glucose (mg/dL) Date Value 12/14/2024 105 12/24/2009 157 Potassium (mmol/L) Date Value 12/14/2024 3.9 12/24/2009 4.1 Sodium (mmol/L) Date Value 12/14/2024 143 12/24/2009 140 Chloride (mmol/L) Date Value 12/14/2024 105 12/24/2009 104 CO2 (mmol/L) Date Value 12/14/2024 26 12/24/2009 22 Creatinine (mg/dL) Date Value 12/14/2024 0.49 12/24/2009 0.52 BUN (mg/dL) Date Value 12/14/2024 15 12/24/2009 13 Anion Gap (mmol/L) Date Value 12/14/2024 12 12/24/2009 14 Calcium (mg/dL) Date Value 12/24/2009 9.1 Calcium, Total (mg/dL) Date Value 12/14/2024 9.2 Protein, Total (g/dL) Date Value 12/14/2024 6.1 Albumin (g/dL) Date Value 12/14/2024 4.1 Bilirubin, Total (mg/dL) Date Value 12/14/2024 0.2 Alkaline Phosphatase (U/L) Date Value 12/14/2024 85 AST (U/L) Date Value 12/14/2024 11 ALT (U/L) Date Value 12/14/2024 12 WBC Date Value Ref Range Status 12/14/2024 3.17 (L) 3.70 - 11.00 k/uL Final RBC Date Value Ref Range Status 12/14/2024 3.47 (L) 3.90 - 5.20 m/uL Final Hemoglobin Date Value Ref Range Status 12/14/2024 11.5 11.5 - 15.5 g/dL Final Hematocrit Date Value Ref Range Status 12/14/2024 35.0 (L) 36.0 - 46.0 % Final MCV Date Value Ref Range Status 12/14/2024 100.9 (H) 80.0 - 100.0 fL Final MCH Date Value Ref Range Status 12/14/2024 33.1 26.0 - 34.0 pg Final MCHC Date Value Ref Range Status 12/14/2024 32.9 30.5 - 36.0 g/dL Final RDW-CV Date Value Ref Range Status 12/14/2024 17.6 (H) 11.5 - 15.0 % Final Platelet Count Date Value Ref Range Status 12/14/2024 188 150 - 400 k/uL Final MPV Date Value Ref Range Status 12/14/2024 9.0 9.0 - 12.7 fL Final Abs Neut Date Value Ref Range Status 12/14/2024 1.96 1.45 - 7.50 k/uL Final Lymphocytes % Date Value Ref Range Status 12/14/2024 24.9 % Final Abs Lymph Date Value Ref Range Status 12/14/2024 0.79 (L) 1.00 - 4.00 k/uL Final Monocytes % Date Value Ref Range Status 12/14/2024 11.7 % Final Abs [place] Date Value Ref Range Status 12/14/2024 0.37 <0.87 k/uL Final Eosin% Date Value Ref Range Status 09/22/2024 1.8 % Final Abs Eosin Date Value Ref Range Status 12/14/2024 0.03 <0.46 k/uL Final Basophils % Date Value Ref Range Status 12/14/2024 0.6 % Final Abs Baso Date Value Ref Range Status 12/14/2024 <0.03 <0.11 k/uL Final PATH: FINAL DIAGNOSIS A. Soft tissue, right shoulder, core biopsy: - Metastatic carcinoma with squamous differentiation. See comment. Diagnosis Comment The history of a left upper lung lobe mass and right shoulder pain is noted. Histologic examinationreveals irregular epithelial nests. The neoplastic cells are positive for CK5/6 and p40, and negative for TTF-1, CDX2, GATA3, supporting the above diagnosis. Although this immunoprofile is not entirely specific, a metastatic carcinoma of lung primary cannot be excluded. IMAGING: ASSESSMENT AND PLAN: Ofe Stephenson is a 69 year old year old female referred to us for metastatic squamous cell lung cancer. H/o CVA. CT chest abdomen pelvis showed left upper lobe mass, enlarged AP window lymph node and lytic lesions at the right scapula and the right iliac bone. -Right shoulder soft tissue biopsy showed metastatic carcinoma with squamous differentiation of lung origin - Hospitalized from 09/07-09/13/24 with gen weakness, fatigue and fever. - Completed 5 fractions of radiation to the right scapula and the right iliac bone on 08/31/24. - MRI brain on 09/01/24 is normal. - PD-L1 TPS - 50%. TOP showed A KRAS G12C and a TP53 hotspot alterations are detected. - Hold off on Xgeva until the dental clearance PLAN: - Side effects are better with 20% dose reduction. - labs reviewed and stable for treatment with cycle 5 today with current doses. - give IV mag today -mri right shoulder due to worsening pain - US right arm due to worsening pain and new swelling of arm - Pain medications as per the palliative care. - PET scan on 11/15/24 showed stable to improvement in disease compared to prior CT scans. D/w radiologist Dr.Tamer King. - We will continue carbo taxol for a total of 6 cycles and then repeat PET scan. - All her questions answered in detail - F/u in 3 weeks. I spent a total of 43 minutes on the date of the service which included preparing to see the patient, [id number] patient care, completing clinical documentation, performing a medically appropriate examination, counseling and educating the patient/family/caregiver, ordering medications, tests, or p rocedures, independently interpreting results (not separately reported), communicating results to the patient/family/caregiver, and care coordination (not separately reported). Josie Arcos PA-C Hematology and Oncology Services Provided at: [place], [place] CC: documented in this encounter Plan of Treatment Upcoming Encounters Date Type Department Care Team (Late st Contact Info) Description 01/04/2025 9:45 AM EDT Office Visit [facility] [address] [place] [address] [place] [address] 3 week follow up lab CHEMOTX CARBO/TAXOL/KEYTRUD A 01/04/2025 10:00 AM EDT Visit (SP) Office Hematology/Oncology [address] [place] [address] [place] [address] Nicholas Gracia MD [address] [place] [address] [place] [address] 3 week follow up lab CHEMOTX CARBO/TAXOL/KEYTRUD A 01/04/2025 10:30 AM EDT [facility] Hematology/Oncology [address] [place] [address] [place] [address] 3 week follow up lab CHEMOTX CARBO/TAXOL/KEYTRUD A 02/22/2025 11:30 AM EDT Office Visit Palliative Medicine [address] [place] [address] [place] [address] Dianne Keller, APPOINTMENT MANAGER.BODY TECHNICIAN [address] [place] [id number] 3 month follow up Scheduled Orders Name Type Priority Associated Diagnoses Orde r Schedule COMPREHENSIVE METABOLIC PANEL Lab Routine Malignant neoplasm of overlapping sites of right lung (HCC) Metastatic cancer to bone (HCC) Malaise and fatigue Expected: 01/04/2025 (Approximate), Expires: 04/05/2025 COMPLETE BLOOD COUNT AND DIFFERENTIAL Lab Routine Malignant neoplasm of overlapping sites of right lung (HCC) Metastatic cancer to bone (HCC) Malaise and fatigue Expected: 01/04/2025 (Approximate), Expires: 04/05/2025 THYROID STIMULATING HORMONE Lab Routine Malignant neoplasm of overlapping sites of right lung (HCC) Metastatic cancer to bone (HCC) Malaise and fatigue Expected: 01/04/2025 (Approximate), Expires: 04/05/2025 MRI SHOULDER WO/W IVCON RIGHT Radiology Routine Malignant neoplasm of overlapping sites of right lung (HCC) Metastatic cancer to bone (HCC) Malaise and fatigue Pain of right upper arm Swelling of arm 1 Occurrences starting 12/14/2024 until 01/13/2026 US DVT UPPER RIGHT Radiology STAT Malignant neoplasm of overlapping sites of right lung (HCC) Pain of right upper arm Swelling of arm 1 Occurrences starting 12/14/2024 until 01/13/2026 documented as of this encounter Visit Diagnoses Diagnosis Malignant neoplasm of overlapping sites of right lung (HCC)- Primary Metastatic cancer to bone (HCC) Secondary malignant neoplasm of bone and bone marrow Malaise and fatigue Other malaise and fatigue Pain of right upper arm Pain in limb Swelling of arm Swelling of limb documented in this encounter Care Teams Christian Science Practitioner Relationship Specialty Start Date End Date Gerson Gonzalez Jr., DO [facility] [facility] [place] [phone] PCP - General 08/24/01 Gerson Gonzalez Jr., DO [address] [facility] [place] [address] Referring Internal Medicine 07/06/24 Ghislaine Thakur RN [address] [place] [address] Specialty Retoucher Photoengraving Hematology/Oncology 08/31/24 Nicholas Gracia MD [facility] [place] [address] Physician Hematology/Oncology 08/31/24 Dianne Keller APRN.BODY TECHNICIAN [address] [place] [address] [place] [id number] Hospice & Palliative Medicine 08/31/24 Jazmyne Bryson, RN Specialty Retoucher Photoengraving Hospice & Palliative Medicine 08/31/24 Danielle Castellon LSW Adjunct Political Science Instructor 09/29/24 documented as of this encounter
--- OUTSIDE RECORDS SUMMARY | 2024-12-14 10:30 | XMS_ITS | Encounter Summary ---
Author Organization [facility] Address [address] [place] [address] Care Team Providers Care Internal Control Manager Name Role Phone Lisa Carson DO, Charles Lewis Primary Care Provi heladio Lisa Carson DO, Charles Lewis Unavailable [phone] Ghislaine Thakur RN Unavailable [phone] Nicholas Gracia MD Unavailable [phone] Dianne Keller APRN.CHIEF OPERATING ENGINEER Unavailable + Jazmyne Bryson RN Unavailable Unavail able Danilele Castellon Unavailable Unavailable Source Comments In the event this information is protected by the Federal Confidentiality of Alcohol and Drug AbusePatient Records regulations: The Federal rules restrict any use of the information to criminally investigate or prosecute any alcohol or drug abuse patient.[facility] Reason for Visit * [place] Prior Authorization (Routine) - Authorized Specialty Diagnoses / Procedures Referred By Contac t Referred To Contact Diagnoses Malignant neoplasm of overlapping sites of right lung (HCC) Luis M Silvestre DO [address] [place], [place] [id number] Phone: tel: fax: Hematology/Oncology [address] [place] [place] [address] Phone: tel: fax: Referral ID Status Reason Start Date Expiration Date V isits Requested Visits Authorized [id number] Authorized 08/23/2024 11/21/2024 99 99 Encounter Details Date Type Department Care Team (Latest Contact Info) Description 12/14/2024 10:30 AM EDT Infusion Center Hematology/Oncology [address] [place] [address] Malignant neoplasm of overlapping sites of right lung (HCC) (Primary Dx) Social History Tobacco Use Types Packs/Day Years [...] is lower risk 8 04/10/2023 Data from: https://www.neighborhoodatlas.medicine.[facility].edu/. Last address used for calculation Brittany ALLYN ANDRADE 04/10/2023 Comments No Sex and Gender Information Value Date Recorded Sex Assigned at Not on file Legal Sex Female 9:48 AM EST Gender Identity Female 12/12/2021 11:07 AM EDT Sexual Orientation Not on file Occupation Industry Job Start Date Job End Date disabled Not on file Not on file Not on file documented as of this encounter Functional Status * Are you [...] Penny Martinez MA * Do you have difficulty dressing [...] documented in this encounter Progress Notes * Joyce Bean RN - 12/14/2024 10:46 AM EDT Mg reviewed with MM, please give magnesium sulfate 2gm IV x 1 with tx today. Pharmacy to enter. Joyce Bean RN documented in this encounter Plan of Treatment Upcoming Encounters Date Type Department Care Team (Late st Contact Info) Description 01/04/2025 9:45 AM EDT Office Visit [facility] [address] [place] [address] [place] [address] 3 week follow up lab CHEMOTX CARBO/TAXOL/KEYTRUD A 01/04/2025 10:00 AM EDT Visit (SP) Office Hematology/Oncology [address] [facility] [place] [address] Nicholas Gracia MD [address] [facility] [place] [address] 3 week follow up lab CHEMOTX CARBO/TAXOL/KEYTRUD A 01/04/2025 10:30 AM EDT [facility] Hematology/Oncology [address] [place] [address] [place] [address] 3 week follow up lab CHEMOTX CARBO/TAXOL/KEYTRUD A 02/22/2025 11:30 AM EDT Office Visit Palliative Medicine [address] [place] [address] [place] [address] Dianne Keller, SURESH.CHIEF OPERATING ENGINEER [address] [place] [address] 3 month follow up documented as of this encounter Visit Diagnoses Diagnosis Malignant neoplasm of overlapping sites of right lung (HCC)- Primary documented in this encounter Administered Medications Inactive Administered Medications - up to 3 most recent administrations Medication Order MAR Action Action Date Dose Rate Site CARBOplatin 500 mg in NaCl 0.9% 325 mL (PARAPLATIN) 500 mg (rounded from 517.2 mg, Target AUC = 4), INTRAVENOUS, Administer over 30 Minutes, ONCE, 1 dose, On Thu12/14/24 at 1530, EXP: 12/15/2024 1110 RT Hazardous Chemotherapy Drug: Use appropriate PPE. Antineoplastic Irritant.Indications:Mal ignant neoplasm of overlapping sites of right lung (HCC) New Bag/Syringe/Bot tle 12/14/2024 3:48 PM EDT 500 mg dexAMETHasone sodium phosphate (PF) 10 mg injection (DECADRON) 10 mg, INTRAVENOUS, ONCE, 1 dose, On Thu12/14/24 at 1100, Administer over 5 minutes.Indications:Sparkle gnant neoplasm of overlapping sites of right lung (HCC) Given 12/14/2024 11:06 AM EDT 10 mg diphenhydrAMINE 25 mg injection (BENADRYL) 25 mg, INTRAVENOUS, ONCE, 1 dose, On Thu12/14/24 at 1100Indications:Malignan t neoplasm of overlapping sites of right lung (HCC) Given 12/14/2024 11:05 AM EDT 25 mg famotidine 20 mg injection (PEPCID) 20 mg, INTRAVENOUS, ONCE, 1 dose, On Thu12/14/24 at 1100, REFRIGERATEIndications:M alignant neoplasm of overlapping sites of right lung (HCC) Given 12/14/2024 11:06 AM EDT 20 mg fosaprepitant 150 mg in NaCl 0.9% 100 mL (EMEND) 150 mg, INTRAVENOUS, Administer over 30 Minutes, ONCE, 1 dose, On Thu12/14/24 at 1100, RefrigerateIndications:M alignant neoplasm of overlapping sites of right lung (HCC) New Bag/Syringe/Bot tle 12/14/2024 11:16 AM EDT 150 mg magnesium sulfate iv piggyback in sterile water 2 g 50 mL 2 g, INTRAVENOUS, at 25-50 mL/hr, Administer over 1-2 Hours, ONCE, 1 dose, On Thu12/14/24 at 1100, Magnesium sulfate iv bolus will be infused at a rate of 1 gram/hr The following nursing units may administer 2 g dose over 1 hour if necessary: ICUs/PACU/ED, Adult Hematology/Oncology, Labor and Delivery, Cardiac Stepdown, Headache Clinic If necessary, a magnesium sulfate bolus may be administered greater than 2 g/hr for the following indications: Adult and Pediatric Asthma Exacerbations, Torsade de Pointes, Pediatric BMT and Hematology/Oncology, Eclampsia or PreeclampsiaIndications: Malignant neoplasm of overlapping sites of right lung (HCC) New Bag/Syringe/Bot tle 12/14/2024 12:39 PM EDT 2 g 50 mL/hr PACLitaxel 300 mg in NaCl 0.9% 590 mL (TAXOL) 300 mg (rounded from 304.5 mg = 150 mg/m2 2.03 m2 Treatment Plan BSA from Recorded weight), INTRAVENOUS, at 196.67 mL/hr, Administer over 3 Hours, ONCE, 1 dose, On Thu12/14/24 at 1230, EXP: 1100 11/24/24 Hazardous Chemotherapy Drug: Use appropriate PPE. Antineoplastic Irritant with Vesicant Potential. Administer with non-DEHP 0.2 micron filter and tubing.Indications:Malig nant neoplasm of overlapping sites of right lung (HCC) New Bag/Syringe/Bot tle 12/14/2024 12:40 PM EDT 300 mg 196.67 mL/hr palonosetron 0.25 mg injection (ALOXI) 0.25 mg, INTRAVENOUS, ONCE, 1 dose, On Thu12/14/24 at 1100, Flush IV line with NS prior to and following administration.Indicatio ns:Malignant neoplasm of overlapping sites of right lung (HCC) Given 12/14/2024 11:06 AM EDT 0.25 mg pegfilgrastim-cbqv 6 mg wearable injection (UDENYCA ONBODY) 6 mg, SUBCUTANEOUS, ONCE, 1 dose, On Thu12/14/24 at 1100, In order to administer the on-body injector, the device needs to be loaded with the drug by a medical professional. Once loaded, the medical professional will apply the device to the patient on the tricep or abdomen. The device administers the drug to the patient 27 hours after it is applied and drug is delivered over 5 minutes. At the conclusion of the administration, the indicator light will turn to a solid green at which time the device can safely be removed by the patient. If the device fails, the indicator light will turn red. RefrigerateIndications:M alignant neoplasm of overlapping sites of right lung (HCC) Given 12/14/2024 3:47 PM EDT 6 mg Arm, Left pembrolizumab 200 mg in NaCl 0.9% 66 mL (KEYTRUDA) 200 mg, INTRAVENOUS, Administer over 30 Minutes, ONCE, 1 dose, On Thu12/14/24 at 1130, Approx Total Volume: 66 mL EXP: 12/18/2024 1100 Refrigerated Administer with 0.2 micron filter.Indications:Maljessica nant neoplasm of overlapping sites of right lung (HCC) New Bag/Syringe/Bot tle 12/14/2024 11:49 AM EDT 200 mg documented in this encounter Care Teams Internal Control Manager Relationship Specialty Start Date End Date Gerson Gonzalez Jr., DO [address] [place] [address] PCP - General 08/24/01 Gerson Gonzalez Jr., [address] [place] [address] Referring Internal Medicine 07/06/24 Ghislaine Thakur RN [address] [place] [address] [place] [address] Specialty Red Leader Hematology/Oncology 08/31/24 Nicholas Gracia MD [address] [place] [address] Physician Hematology/Oncology 08/31/24 Dianne Keller APRN.[facility] [address] [place] [address] [place] [id number] Hospice & Palliative Medicine 08/31/24 Jazmyne Bryson, RN Specialty Red Leader Hospice & Palliative Medicine 08/31/24 Danielle Castellon LSW Industrial Engineering Director 09/29/24 documented as of this encounter
--- NOTE | 2024-12-22 08:44 | MR_ITS ---
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 COMPARISON: 07/04/2024, 08/08/2024, and 09/06/2024 PROCEDURE: Axial, oblique coronal, and oblique sagittal long TR images of the shoulder were obtained with and without IV contrast. CONTRAST: 18 mL of intravenous Dotarem. FINDINGS: ROTATOR CUFF AND ASSOCIATED STRUCTURES Biceps Tendon: There is hyperintense signal within the long head of biceps tendon suggesting tendinopathy with fluid along the tendon sheath suggesting tenosynovitis. Rotator cuff: There is edema within the supraspinatus and infraspinatus tendons suggesting tendinopathy. The subscapularis and teres minor tendons are normal in signal. Musculature: There is edema throughout the supraspinatus and infraspinatus musculature, greatest in the supraspinatus. This may represent myositis relating to prior radiation therapy with etiologies such as denervation myositis secondary to a mass approximating the suprascapular notch not excluded. Bursa: Edema is noted in the subacromial bursa. OSSEOUS STRUCTURES Acromioclavicular joint: There are moderate degenerative changes of the acromioclavicular joint. A type 3 acromion configuration is noted. There is lateral acromial downsloping. There is significant marrow edema within the acromioclavicular joint. This is worse when compared to the prior exam. Bones: There is redemonstration of a T2 hyperintense enhancing 4.0 x 3.3 x 3.9 cm metastatic lesion within the glenoid extending into the coracoid process with accompanying extraosseous extension anteriorly similar to the prior exam. This abuts the short head of the biceps tendon within the soft tissues anteriorly and risks partially beneath the subscapularis tendon. There is approximate the suprascapular notch. GLENOHUMERAL JOINT Joint: There is a small joint effusion. Cartilage: No focal hyaline cartilage defects are noted. Labrum: Chronic degenerative appearance of the labrum is redemonstrated. Other support structures: No capsular or ligamentous abnormality is seen. MR/MR shoulder RT wo/w con IMPRESSION: 1. There is redemonstration of a T2 hyperintense enhancing 4.0 x 3.3 x 3.9 cm metastatic lesion within the glenoid extending into the coracoid process with accompanying extraosseous extension anteriorly similar to the prior exam. This abuts the short head of the biceps tendon within the soft tissues anteriorly and risks partially beneath the subscapularis tendon. There is approximate the suprascapular notch. 2. There is edema throughout the supraspinatus and infraspinatus musculature, greatest in the supraspinatus. This may represent myositis relating to prior radiation therapy with etiologies such as denervation myositis secondary to a mass approximating the suprascapular notch not excluded. This is new compared to the prior exam. 3. There is edema within the supraspinatus and infraspinatus tendons suggesting tendinopathy. The subscapularis and teres minor tendons are normal in signal. This is similar to the prior exam. 4. There is significant marrow edema within the acromioclavicular joint. This is worse when compared to the prior exam. 5. Additional chronic findings are redemonstrated as above. Impression dictated by: Sanjiv Reis M.D. 12/22/2024 11:01 AM Dictation Location: [place] [address] Electronically authenticated by: [id number] Y Date: 12/22/2024 11:01
--- OUTSIDE RECORDS SUMMARY | 2024-12-22 08:48 | XMS_ITS | Encounter Summary ---
Author Organization [facility] Address [address] [place] [address] Care Team Providers Care Trading Assistant Name Role Phone Lisa Carson DO, Charles Lewis Primary Care Provi heladio Lisa Carson DO, Charles Lewis Unavailable [phone] Ghislaine Thakur RN Unavailable [phone] Nicholas Gracia MD Unavailable [phone] Dianne Keller APRN.COMPUTER LAB ASSISTANT Unavailable + Jazmyne Bryson RN Unavailable Unavail able Danielle Castellon Unavailable Unavailable Source Comments In the event this information is protected by the Federal Confidentiality of Alcohol and Drug AbusePatient Records regulations: The Federal rules restrict any use of the information to criminally investigate or prosecute any alcohol or drug abuse patient.[facility] Encounter Details Date Type Department Care Team (Late st Contact Info) Description 05/25/2019 Get Medical Advice Ophthalmology [address] [place] [address] Elizabeth Thompson MD [address] [place], [place] [address], [place] [address] Upcoming Appointment Question Social History Tobacco Use Types Packs/Day Years Used Date Smoking Tobacco: Former Cigarettes 1.5 18 0 07/20/1981 - 07/20/1999 Smokeless Tobacco: Never Alcohol Use Standard Drinks/Week Comments No 0 (1 standard drink = 0.6 oz pur e alcohol) Comments No Sex and Gender Information Value [...] Penny Martinez MA documented in this encounter Plan of Treatment Upcoming Encounters Date Type Department Care Team (Late st Contact Info) Description 01/04/2025 9:45 AM EDT Office Visit [facility] Laboratory [address] [place] [address] [place] [address] 3 week follow up lab CHEMOTX CARBO/TAXOL/KEYTRUD A 01/04/2025 10:00 AM EDT Visit (SP) Office Hematology/Oncology [address] [facility] [address] Nicholas Gracia MD [address] [facility] [place] [address] 3 week follow up lab CHEMOTX CARBO/TAXOL/KEYTRUD A 01/04/2025 10:30 AM EDT Infusion Center Hematology/Oncology [address] [facility] [place] [address] 3 week follow up lab CHEMOTX CARBO/TAXOL/KEYTRUD A 02/22/2025 11:30 AM EDT Office Visit Palliative Medicine [address] [place] [address] [place] [address] Dianne Keller, STEAMER OPERATOR.COMPUTER LAB ASSISTANT [address] [place] [address] 3 month follow up documented as of this encounter Visit Diagnoses Not on filedocumented in this encounter Care Teams Trading Assistant Relationship Specialty Start Date End Date Gerson Gonzalez Jr. DO [facility] [place] [phone] PCP - General 08/24/01 Gerson Gonzalez Jr., DO [facility] [place] [address] Referring Internal Medicine 07/06/24 Ghislaine Thakur RN [address] [facility] [address] Specialty Fighter Pilot Hematology/Oncology 08/31/24 Nicholas Gracia MD [address] [place] [address] [place] [address] Physician Hematology/Oncology 08/31/24 Dianne Keller APRN.[facility] [address] [place] [address] [place] [address] Hospice & Palliative Medicine 08/31/24 Jazmyne Bryson, RN Specialty Fighter Pilot Hospice & Palliative Medicine 08/31/24 Danielle Castellon LSW Ceramic Maker Demonstrator 09/29/24 documented as of this encounter
--- OUTSIDE RECORDS SUMMARY | 2024-12-22 08:48 | XMS_ITS | Encounter Summary ---
Author Organization [facility] Address [address] [place] [address] Care Team Providers Care Patent Attorney Name Role Phone Lisa Carson DO, Charles Lewis Primary Care Provi heladio Lisa Carson DO, Charles Lewis Unavailable [phone] Ghislaine Thakur RN Unavailable [phone] Nicholas Gracia MD Unavailable [phone] Dianne Keller APRN.GOLF COACH Unavailable + Jazmyne Bryson RN Unavailable Unavail able Danielle Castellon Unavailable Unavailable Source Comments In the event this information is protected by the Federal Confidentiality of Alcohol and Drug AbusePatient Records regulations: The Federal rules restrict any use of the information to criminally investigate or prosecute any alcohol or drug abuse patient.[facility] Encounter Details Date Type Department Care Team (Late st Contact Info) Description 05/22/2008 Patient Msg Medical Records [address] [place] [address] Provider, [facility] Patient Registration Social History Tobacco Use Types Packs/Day Years Used Date Smoking Tobacco: Former Cigarettes 1.5 18 Alcohol Use Standard Drinks/Week Comments Not Asked 0 (1 standard drink = 0.6 oz pur e alcohol) Comments No Sex and Gender Information Value Date Recorded Sex Assigned at Not on file Legal Sex Female 9:48 AM EST Gender Identity Female 12/12/2021 11:07 AM EDT Sexual Orientation Not on file documented as of this encounter Plan of Treatment Upcoming Encounters Date Type Department Care Team (Late st Contact Info) Description 01/04/2025 9:45 AM EDT [facility] [address] [facility] [place] [address] 3 week follow up lab CHEMOTX CARBO/TAXOL/KEYTRUD A 01/04/2025 10:00 AM EDT Visit (SP) Office Hematology/Oncology [address] [facility] [address] [place] [address] Nicholas Gracia MD [address] [facility] [address] [place] [address] 3 week follow up lab CHEMOTX CARBO/TAXOL/KEYTRUD A 01/04/2025 10:30 AM EDT [facility] Hematology/Oncology [address] [place] [address] [place] [address] 3 week follow up lab CHEMOTX CARBO/TAXOL/KEYTRUD A 02/22/2025 11:30 AM EDT Office Visit Palliative Medicine [address] [place] [address] [place] [address] Dianne Keller, TREATING ENGINEER HELPER.GOLF COACH [address] [place] [address] 3 month follow up documented as of this encounter Visit Diagnoses Not on filedocumented in this encounter Care Teams Patent Attorney Relationship Specialty Start Date End Date Gerson Gonzalez Jr., DO [address] [place] [phone] PCP - General 08/24/01 Gerson Gonzalez Jr., DO [address] [place] [address] [place] [address] Referring Internal Medicine 07/06/24 Ghislaine Thakur RN [address] [place] [address] [place] [address] Specialty Ship Rigger Apprentice Hematology/Oncology 08/31/24 Nicholas Gracia MD [address] [place] [address] [place] [address] Physician Hematology/Oncology 08/31/24 Dianne Keller APRN.GOLF COACH [address] [place] [address] [place] [address] Hospice & Palliative Medicine 08/31/24 Jazmyne Bryson RN Specialty Ship Rigger Apprentice Hospice & Palliative Medicine 08/31/24 Danielle Castellon LSW Private Security Guard 09/29/24 documented as of this encounter
--- OUTSIDE RECORDS SUMMARY | 2024-12-22 08:48 | XMS_ITS | Encounter Summary ---
Author Organization [facility] Address [address] [place] [address] Care Team Providers Care Windows Infrastructure Engineer Name Role Phone Lisa Carson DO, Charles Lewis Primary Care Provi heladio Lisa Carson DO, Charles Lewis Unavailable [phone] Ghislaine Thakur RN Unavailable [phone] Nicholas Gracia MD Unavailable [phone] Dianne Keller APRN.SHIPPING AND RECEIVING CLERK Unavailable + Jazmyne Bryson RN Unavailable Unavail able Danielle Castellon Unavailable Unavailable Source Comments In the event this information is protected by the Federal Confidentiality of Alcohol and Drug AbusePatient Records regulations: The Federal rules restrict any use of the information to criminally investigate or prosecute any alcohol or drug abuse patient.[facility] Reason for Visit * Reason Comments PHOTOS TAKEN Encounter Details Date Type Department Care Team (Late st Contact Info) Description 06/05/2009 Abstract Plastic Surgery [address] [place] [id number] López Boston MD [address] [place] [address] [place] [address] PHOTOS TAKEN Social History Tobacco Use Types Packs/Day Years Used Date Smoking Tobacco: Former Cigarettes 1.5 18 0 07/20/1981 - 07/20/1999 Alcohol Use Standard Drinks/Week Comments Not Asked [...] Description 01/04/2025 9:45 AM EDT Office Visit [facility] [address] [facility] [place] [address] 3 week follow up lab CHEMOTX CARBO/TAXOL/KEYTRUD A 01/04/2025 10:00 AM EDT Visit (SP) Office Hematology/Oncology [address] [facility] [place] [address] Nicholas Gracia MD [address] [facility] [place] [address] 3 week follow up lab CHEMOTX CARBO/TAXOL/KEYTRUD A 01/04/2025 10:30 AM EDT [facility] Hematology/Oncology [address] [facility] [place] [address] 3 week follow up lab CHEMOTX CARBO/TAXOL/KEYTRUD A 02/22/2025 11:30 AM EDT Office Visit Palliative Medicine [address] [place] [address] [place] [address] iDanne Keller, USRESH.SHIPPING AND RECEIVING CLERK [address] [place] [address] 3 month follow up documented as of this encounter Visit Diagnoses Not on filedocumented in this encounter Care Teams Windows Infrastructure Engineer Relationship Specialty Start Date End Date Gerson Gonzalez Jr., [address] [place] [address] [place] [address] PCP - General 08/24/01 Gerson Gonzalez Jr., DO [facility] [place] [phone] Referring Internal Medicine 07/06/24 Ghislaine Thakur RN [address] [place] [address] [place], [place] [id number] Specialty Training Program Manager Hematology/Oncology 08/31/24 Nicholas Gracia MD [address] [place] [address] [place] [address] Physician Hematology/Oncology 08/31/24 Dianne Keller APRN.SHIPPING AND RECEIVING CLERK [address] [place] [address] [place] [address] Hospice & Palliative Medicine 08/31/24 Jazmyne Bryson RN Specialty Training Program Manager Hospice & Palliative Medicine 08/31/24 Danielle Castellon LSW Customer Service Administrator 09/29/24 documented as of this encounter
--- OUTSIDE RECORDS SUMMARY | 2024-12-22 08:48 | XMS_ITS | Encounter Summary ---
Author Organization [facility] Address [address] [place] [address] Care Team Providers Care Supervisor Partial Denture Department Name Role Phone Lisa Carson DO, Charles Lewis Primary Care Provi heladio Lisa Carson DO, Charles Lewis Unavailable +[phone] Ghislaine Thakur RN Unavailable [phone] Nicholas Gracia MD Unavailable [phone] Dianne Keller APRN.INJECTION MOLDING MACHINE OPERATOR Unavailable + Jazmyne Bryson RN Unavailable Unavail able Danielle Castellon Unavailable Unavailable Source Comments In the event this information is protected by the Federal Confidentiality of Alcohol and Drug AbusePatient Records regulations: The Federal rules restrict any use of the information to criminally investigate or prosecute any alcohol or drug abuse patient.[facility] Encounter Details Date Type Department Care Team (Late st Contact Info) Description 10/22/2008 Patient Msg Medical Records [address] [place] [address] Provider, Ccf RE: Appointment Cancellation Request Social History Tobacco Use Types Packs/Day Years [...] Description 01/04/2025 9:45 AM EDT Office Visit [facility] Laboratory [address] [place] [address] [place] [address] 3 week follow up lab CHEMOTX CARBO/TAXOL/KEYTRUD A 01/04/2025 10:00 AM EDT Visit (SP) Office Hematology/Oncology [address] [facility] [place] [address] Nicholas Gracia MD [address] [facility] [place] [address] 3 week follow up lab CHEMOTX CARBO/TAXOL/KEYTRUD A 01/04/2025 10:30 AM EDT [facility] Center Hematology/Oncology [address] [place] [address] [place] [address] 3 week follow up lab CHEMOTX CARBO/TAXOL/KEYTRUD A 02/22/2025 11:30 AM EDT Office Visit Palliative Medicine [address] [place] [address] [place] [address] Dianne Keller, PRESS BUCKER.INJECTION MOLDING MACHINE OPERATOR [address] [place] [address] 3 month follow up documented as of this encounter Visit Diagnoses Not on filedocumented in this encounter Care Teams Supervisor Partial Denture Department Relationship Specialty Start Date End Date Gerson Gonzalez Jr., DO [address] [place] [phone] PCP - General 08/24/01 Gerson Gonzalez Jr., DO [address] [place] [address] Referring Internal Medicine 07/06/24 Ghislaine Thakur RN [address] [place] [address] [place] [address] Specialty Glass Sander Hematology/Oncology 08/31/24 Nicholas Gracia MD [address] [place] [address] [place] [address] Physician Hematology/Oncology 08/31/24 Dianne Keller APRN.INJECTION MOLDING MACHINE OPERATOR [address] [place] [address] [place] [phone] Hospice & Palliative Medicine 08/31/24 Jazmyne Bryson RN Specialty Glass Sander Hospice & Palliative Medicine 08/31/24 Danielle Castellon LSW Computer Lab Aide 09/29/24 documented as of this encounter
--- OUTSIDE RECORDS SUMMARY | 2024-12-22 08:48 | XMS_ITS | Encounter Summary ---
Author Organization [facility] Address [facility] [place] [address] Care Team Providers Care Reel System Operator Name Role Phone Lisa Carson DO, Charles Lewis Primary Care Provi heladio Lisa Carson DO, Charles Lewis Unavailable [phone] Ghislaine Thakur RN Unavailable [phone] Nicholas Gracia MD Unavailable [phone] Dianne Keller APRN.INDUSTRIAL MAINTENANCE REPAIRER Unavailable + Jazmyne Bryson RN Unavailable Unavail able Danielle Castellon Unavailable Unavailable Source Comments In the event this information is protected by the Federal Confidentiality of Alcohol and Drug AbusePatient Records regulations: The Federal rules restrict any use of the information to criminally investigate or prosecute any alcohol or drug abuse patient.[facility] Encounter Details Date Type Department Care Team (Late st Contact Info) Description 10/03/2008 Patient Msg Medical Records [address] [place] [address] Provider, Ccf Patient Registration Social History Tobacco [...] Description 01/04/2025 9:45 AM EDT Office Visit [facility] Laboratory [address] [facility] [place] [address] 3 week follow up lab CHEMOTX CARBO/TAXOL/KEYTRUD A 01/04/2025 10:00 AM EDT Visit (SP) Office Hematology/Oncology [address] [facility] [place] [address] Nicholas Gracia MD [address] [facility] [place] [address] 3 week follow up lab CHEMOTX CARBO/TAXOL/KEYTRUD A 01/04/2025 10:30 AM EDT [facility] Hematology/Oncology [address] [place] [address] [place] [address] 3 week follow up lab CHEMOTX CARBO/TAXOL/KEYTRUD A 02/22/2025 11:30 AM EDT Office Visit Palliative Medicine [address] [place] [address] [place] [address] Dianne Keller, DIGITAL PRODUCTION MANAGER.INDUSTRIAL MAINTENANCE REPAIRER [address] [place] [address] 3 month follow up documented as of this encounter Visit Diagnoses Not on filedocumented in this encounter Care Teams Reel System Operator Relationship Specialty Start Date End Date Gerson Goznalez Jr., DO [address] [place] [phone] PCP - General 08/24/01 Gerson Gonzalez Jr., DO [address] [place] [address] [place] [address] Referring Internal Medicine 07/06/24 Ghislaine Thakur RN [address] [place] [address] [place] [address] Specialty Automotive Parts Counter Person Hematology/Oncology 08/31/24 Nicholas Gracia MD [address] [place] [address] [place] [address] Physician Hematology/Oncology 08/31/24 Dianne Keller APRN.INDUSTRIAL MAINTENANCE REPAIRER [address] [place] [address] [place] [address] Hospice & Palliative Medicine 08/31/24 Jazmyne Bryson RN Specialty Automotive Parts Counter Person Hospice & Palliative Medicine 08/31/24 Danielle Castellon LSW Corporate Manager 09/29/24 documented as of this encounter
--- OUTSIDE RECORDS SUMMARY | 2024-12-22 08:48 | XMS_ITS | Encounter Summary ---
Author Organization [facility] Address [address] [place], [place] [id number] Care Team Providers Care Bi Application Developer Name Role Phone Lisa Carson DO, Charles Lewis Primary Care Provi heladio Lisa Carson DO, Charles Lewis Unavailable [phone] Ghislaine Thakur RN Unavailable [phone] Nicholas Gracia MD Unavailable [phone] Dianne Keller APRN.CRYPTOLOGIC TECHNICIAN TECHNICAL Unavailable + Jazmyne Bryson RN Unavailable Unavail able Danielle Castellon Unavailable Unavailable Source Comments In the event this information is protected by the Federal Confidentiality of Alcohol and Drug AbusePatient Records regulations: The Federal rules restrict any use of the information to criminally investigate or prosecute any alcohol or drug abuse patient.[facility] Encounter Details Date Type Department Care Team (Late st Contact Info) Description 10/02/2018 Patient Msg Dermatology [address] [id number] Mohit Rizzo MD, PhD [address] [place] [address] [place] [address] RE: Appointment Cancellation Request Social History Tobacco [...] Description 01/04/2025 9:45 AM EDT Office Visit [facility] Laboratory [address] [facility] [place] [address] 3 week follow up lab CHEMOTX CARBO/TAXOL/KEYTRUD A 01/04/2025 10:00 AM EDT Visit (SP) Office Hematology/Oncology [address] [facility] [place] [address] Nicholas Gracia MD [address] [place] [address] [place] [address] 3 week follow up lab CHEMOTX CARBO/TAXOL/KEYTRUD A 01/04/2025 10:30 AM EDT [facility] Hematology/Oncology [address] [facility] [place] [address] 3 week follow up lab CHEMOTX CARBO/TAXOL/KEYTRUD A 02/22/2025 11:30 AM EDT Office Visit Palliative Medicine [address] [place] [address] [place] [address] Dianne Keller, BED TEACHER.CRYPTOLOGIC TECHNICIAN TECHNICAL [address] [place] [address] 3 month follow up documented as of this encounter Visit Diagnoses Not on filedocumented in this encounter Care Teams Bi Application Developer Relationship Specialty Start Date End Date Gerson Gonzalez Jr., DO [address] [place] [address] [place] [phone] PCP - General 08/24/01 Gerson Gonzalez Jr., DO [address] [place] [address] [place] [address] Referring Internal Medicine 07/06/24 Ghislaine Thakur RN [address] [place] [address] Specialty Pumpman Hematology/Oncology 08/31/24 Nicholas Gracia MD [address] [place] [address] [place] [address] Physician Hematology/Oncology 08/31/24 Dianne Keller APRN.[facility] [address] [place] [address] [place] [address] Hospice & Palliative Medicine 08/31/24 Jazmyne Bryson, RN Specialty Pumpman Hospice & Palliative Medicine 08/31/24 Danielle Castellon LSW Veterinary Practice Manager 09/29/24 documented as of this encounter
--- OUTSIDE RECORDS SUMMARY | 2024-12-22 08:48 | XMS_ITS | Encounter Summary ---
Author Organization [facility] Address [facility]0 [place] [address] Care Team Providers Care Lead Scientist Name Role Phone Lisa Carson DO, Charles Lewis Primary Care Provi heladio Lisa Carson DO, Charles Lewis Unavailable [phone] Ghislaine Thakur RN Unavailable [phone] Nicholas Gracia MD Unavailable [phone] Dianne Keller APRN.DRAFTER [place] Unavailable + Jazmyne Bryson RN Unavailable Unavail able Danielle Castellon Unavailable Unavailable Source Comments In the event this information is protected by the Federal Confidentiality of Alcohol and Drug AbusePatient Records regulations: The Federal rules restrict any use of the information to criminally investigate or prosecute any alcohol or drug abuse patient.[facility] Encounter Details Date Type Department Care Team (Late st Contact Info) Description 10/12/2008 Patient Msg Medical Records [address] [place] [address] Provider, Ccf Appointment Cancellation Request Social History Tobacco Use [...] Description 01/04/2025 9:45 AM EDT Office Visit [facility] Laboratory [address] [facility] [place] [address] 3 week follow up lab CHEMOTX CARBO/TAXOL/KEYTRUD A 01/04/2025 10:00 AM EDT Visit (SP) Office Hematology/Oncology [address] [facility] [place] [address] Nicholas Gracia MD [address] [facility] [place] [address] 3 week follow up lab CHEMOTX CARBO/TAXOL/KEYTRUD A 01/04/2025 10:30 AM EDT [facility] Hematology/Oncology [address] [place] [address] [place] [address] 3 week follow up lab CHEMOTX CARBO/TAXOL/KEYTRUD A 02/22/2025 11:30 AM EDT Office Visit Palliative Medicine [address] [place] [address] [place] [address] Dianne Keller, MONOTYPE OPERATOR.DRAFTER [place] [address] [place] [address] 3 month follow up documented as of this encounter Visit Diagnoses Not on filedocumented in this encounter Care Teams Lead Scientist Relationship Specialty Start Date End Date Gerson Gonzalez Jr., [address] [place] [phone] PCP - General 08/24/01 Gerson Gonzalez Jr., DO [address] [place] [address] Referring Internal Medicine 07/06/24 Ghislaine Thakur RN [address] [place] [address] [place] [address] Specialty Examiner Rating Clerk Hematology/Oncology 08/31/24 Nicholas Gracia MD [address] [place] [address] [place] [address] Physician Hematology/Oncology 08/31/24 Dianne Keller APRN.DRAFTER [place] [address] [place] [address] [place] [address] Hospice & Palliative Medicine 08/31/24 Jazmyne Bryson RN Specialty Examiner Rating Clerk Hospice & Palliative Medicine 08/31/24 Danielle Castellon LSW Finish Opener 09/29/24 documented as of this encounter
--- OUTSIDE RECORDS SUMMARY | 2024-12-22 08:48 | XMS_ITS | Encounter Summary ---
Author Organization [facility] Address [address] [place] [address] Care Team Providers Care Automotive Warranty Administrator Name Role Phone Lisa Carson DO, Charles Lewis Primary Care Provi heladio Lisa Carson DO, Charles Lewis Unavailable [phone] Ghislaine Thakur RN Unavailable [phone] Nicholas Gracia MD Unavailable [phone] Dianne Keller APRN.RESOURCE MANAGER FORESTER Unavailable + Jazmyne Bryson RN Unavailable Unavail able Danielle Castellon Unavailable Unavailable Source Comments In the event this information is protected by the Federal Confidentiality of Alcohol and Drug AbusePatient Records regulations: The Federal rules restrict any use of the information to criminally investigate or prosecute any alcohol or drug abuse patient.[facility] Encounter Details Date Type Department Care Team (Late st Contact Info) Description 04/18/2019 Patient Msg Ophthalmology [address] [facility] [place], [place] [phone] Provider, Ccf RE:surgery Social History Tobacco Use Types Packs/Day Years [...] of Assessment Author No 09/15/2014 12:58 PM Penyn Martinez MA * Because of a physical, [...] Description 01/04/2025 9:45 AM EDT Office Visit [facility] Laboratory [address] [place] [address] [place] [address] 3 week follow up lab CHEMOTX CARBO/TAXOL/KEYTRUD A 01/04/2025 10:00 AM EDT Visit (SP) Office Hematology/Oncology [address] [place] [address] Nicholas Gracia MD [address] [place] [address] 3 week follow up lab CHEMOTX CARBO/TAXOL/KEYTRUD A 01/04/2025 10:30 AM EDT [facility] Hematology/Oncology [address] [place] [address] 3 week follow up lab CHEMOTX CARBO/TAXOL/KEYTRUD A 02/22/2025 11:30 AM EDT Office Visit Palliative Medicine [address] [place] [address] Dianne Keller, MANAGER R D.RESOURCE MANAGER FORESTER [address] [place] [address] 3 month follow up documented as of this encounter Visit Diagnoses Not on filedocumented in this encounter Care Teams Automotive Warranty Administrator Relationship Specialty Start Date End Date Gerson Gonzalez Jr., DO [facility] [facility] [place] [phone] PCP - General 08/24/01 Gerson Gonzalez Jr., DO [facility] [facility] [place] [address] Referring Internal Medicine 07/06/24 Ghislaine Thakur RN [address] [place] [address] Specialty Filler Feeder Hematology/Oncology 08/31/24 Nicholas Gracia MD [facility] [place] [address] Physician Hematology/Oncology 08/31/24 Dianne Keller, MANAGER R D.RESOURCE MANAGER FORESTER [address] [place] [address] Hospice & Palliative Medicine 08/31/24 Jazmyne Bryson, RN Specialty Filler Feeder Hospice & Palliative Medicine 08/31/24 Danielle Castellon LSW Department Of Sociology Chair 09/29/24 documented as of this encounter
--- OUTSIDE RECORDS SUMMARY | 2024-12-22 08:48 | XMS_ITS | Encounter Summary ---
Author Organization [facility] Address [address] [facility] [place] [address] Care Team Providers Care Farm Machinery Erector Name Role Phone Gerson Gonzalez MD Primary Care Provider [phone] Shasta Flood Unavailable Encounter Details Date Type Department Care Team (Late st Contact Info) Description 01/16/2023 Abstract [facility] [address] [facility] [address] [place] [address] David Moran PA [address] [facility] 150 [place] [address] Social History Tobacco Use Types Packs/Day Years Used Date Smoking Tobacco: Former Cigarettes Smokeless Tobacco: Never Tobacco Cessation:Counseling Given: Not Answered Comments:Last smoked 10+ years ago Alcohol Use Standard Drinks/Week Comments Never 0 (1 standard drink = 0.6 oz pur e alcohol) Caffine intake:4+ cups daily Comments Unknown Sex and Gender Information Value Date Recorded Sex Assigned at Not on file Legal Sex Female 7:08 PM EDT Gender Identity Not on file Sexual Orientation Not on file COVID-19 Exposure Response Date Recorded In the last 10 days, have yo u been in contact with someone who was confirmed or suspected to have Coronavirus/COVID-19? No / Unsure 01/16/2023 12:56 AM EDT documented as of this encounter Plan of Treatment Not on file documented as of this encounter Visit Diagnoses Not on filedocumented in this encounter Care Teams Farm Machinery Erector Relationship Specialty Start Date End Date Gerson Gonzalez MD [facility]3 [place] [address] PCP - General Internal Medicine 01/07/23 Shasta Flood PA [facility]3 [place] [address] Physician Ash Pit Worker Neurology 10/10/24 documented as of this encounter
--- OUTSIDE RECORDS SUMMARY | 2024-12-22 08:48 | XMS_ITS | Encounter Summary ---
Author Organization [facility] Address [address] [facility] [place] [address] Care Team Providers Care Drum Operator Name Role Phone Gerson Gonzalez MD Primary Care Provider [phone] Shasta Flood Unavailable Encounter Details Date Type Department Care Team (Late st Contact Info) Description 03/06/2023 Abstract [facility] [address] [place] [phone] Catherine Valadez, OT [address] [place] [address] Social History Tobacco Use Types Packs/Day Years Used Date Smoking Tobacco: Former Cigarettes Smokeless Tobacco: Never Comments:Last smoked 10+ yea rs ago Alcohol Use Standard Drinks/Week Comments Never [...] suspected to have Coronavirus/COVID-19? No / Unsure 03/01/2023 10:42 AM EDT documented as of this encounter Plan of Treatment Not on file documented as of this encounter Visit Diagnoses Not on filedocumented in this encounter Care Teams Drum Operator Relationship Specialty Start Date End Date Gerson Gonzalez MD [address] [place] [address] PCP - General Internal Medicine 01/07/23 Shasta Flood PA [facility]3 [place] [address] Physician Metal Inspector Neurology 10/10/24 documented as of this encounter
--- OUTSIDE RECORDS SUMMARY | 2024-12-22 08:48 | XMS_ITS | Encounter Summary ---
Author Organization [facility] Address [address] [facility] [place] [address] Care Team Providers Care Finishing Tunnel Operator Name Role Phone Gerson Gonzalez MD Primary Care Provider [phone] Shasta Flood Unavailable Encounter Details Date Type Department Care Team (Late st Contact Info) Description 02/16/2023 Abstract [facility] [address] [facility] 150 [place] [address] David Moran PA [address] [place] [facility] 150 [place] [address] Social History Tobacco Use Types Packs/Day Years [...] suspected to have Coronavirus/COVID-19? No / Unsure 02/15/2023 2:14 PM EDT documented as of this encounter Plan of Treatment Not on file documented as of this encounter Visit Diagnoses Not on filedocumented in this encounter Care Teams Finishing Tunnel Operator Relationship Specialty Start Date End Date Gerson Gonzalez MD [facility]3 [place] [address] PCP - General Internal Medicine 01/07/23 Shasta Flood PA [address] [place] [address] Physician Certified Appliance Service Technician Neurology 10/10/24 documented as of this encounter
--- OUTSIDE RECORDS SUMMARY | 2024-12-22 08:48 | XMS_ITS | Encounter Summary ---
Author Organization [facility] Address [address] [facility] [place] [address] Care Team Providers Care Chief Relay Tester Name Role Phone Gerson Gonzalez MD Primary Care Provider [phone] Shasta Flood Unavailable Encounter Details Date Type Department Care Team (Late st Contact Info) Description 03/16/2023 Abstract [facility] [address] [facility] 150 [place] [address] David Moran PA [address] [place] [facility] 150 [place] [address] Social History Tobacco Use Types Packs/Day Years [...] suspected to have Coronavirus/COVID-19? No / Unsure 03/16/2023 1:46 PM EDT documented as of this encounter Plan of Treatment Not on file documented as of this encounter Visit Diagnoses Not on filedocumented in this encounter Care Teams Chief Relay Tester Relationship Specialty Start Date End Date Gerson Gonzalez MD [facility]3 [place] [address] PCP - General Internal Medicine 01/07/23 Shasta Flood PA [address] [place] [address] Physician Hand Button Splitter Neurology 10/10/24 documented as of this encounter
--- OUTSIDE RECORDS SUMMARY | 2024-12-22 08:48 | XMS_ITS | Encounter Summary ---
Author Organization [facility] Address [address] [place] [address] Care Team Providers Care Airborne Operations Name Role Phone Lisa Carson DO, Charles Lewis Primary Care Provi heladio Lisa Carson DO, Charles Lewis Unavailable [phone] Ghislaine Thakur RN Unavailable [phone] Nicholas Gracia MD Unavailable [phone] Dianne Keller APRN.FLAG SIGNALER Unavailable + Jazmyne Bryson RN Unavailable Unavail able Danielle Castellon Unavailable Unavailable Source Comments In the event this information is protected by the Federal Confidentiality of Alcohol and Drug AbusePatient Records regulations: The Federal rules restrict any use of the information to criminally investigate or prosecute any alcohol or drug abuse patient.[facility] Encounter Details Date Type Department Care Team (Late st Contact Info) Description 10/22/2008 Patient Msg Medical Records [address] [place] [address] Provider, Ccf RE: Appointment Cancellation Request Social [...] EDT Office Visit [facility] [address] [place] [address] [place] [address] 3 week follow up lab CHEMOTX CARBO/TAXOL/KEYTRUD A 01/04/2025 10:00 AM EDT Visit (SP) Office Hematology/Oncology [address] [facility] [place] [address] Nicholas Gracia MD [address] [facility] [place] [address] 3 week follow up lab CHEMOTX CARBO/TAXOL/KEYTRUD A 01/04/2025 10:30 AM EDT [facility] Hematology[facility]Oncology [address] [place] [address] [place] [address] 3 week follow up lab CHEMOTX CARBO/TAXOL/KEYTRUD A 02/22/2025 11:30 AM EDT Office Visit Palliative Medicine [address] [place] [address] [place] [address] Dianne Keller, PHYSICS AND ASTRONOMY PROFESSOR.FLAG SIGNALER [address] [place] [address] 3 month follow up documented as of this encounter Visit Diagnoses Not on filedocumented in this encounter Care Teams Airborne Operations Relationship Specialty Start Date End Date Gerson Gonzalez Jr., DO [address] [place] [phone] PCP - General 08/24/01 Gerson Gonzalez Jr., DO [address] [place] [address] Referring Internal Medicine 07/06/24 Ghislaine Thakur RN [address] [place] [address] [place] [address] Specialty Nutrition Specialist Hematology/Oncology 08/31/24 Nicholas Gracia MD [address] [place] [address] [place] [address] Physician Hematology/Oncology 08/31/24 Dianne Keller APRN.FLAG SIGNALER [address] [place] [address] [place] [phone] Hospice & Palliative Medicine 08/31/24 Jazmyne Bryson RN Specialty Nutrition Specialist Hospice & Palliative Medicine 08/31/24 Danielle Castellon LSW Forest Nursery Worker 09/29/24 documented as of this encounter
--- OUTSIDE RECORDS SUMMARY | 2024-12-22 08:48 | XMS_ITS | Encounter Summary ---
Author Organization [facility] Address [address] [place] [address] Care Team Providers Care Special Events Driver Name Role Phone Lisa Carson DO, Charles Lewis Primary Care Provi heladio Lisa Carson DO, Charles Lewis Unavailable [phone] Ghislaine Thakur RN Unavailable [phone] Nicholas Gracia MD Unavailable [phone] Dianne Keller APRN.TEST MANAGER Unavailable + Jazmyne Bryson RN Unavailable Unavail able Danielle Castellon Unavailable Unavailable Source Comments In the event this information is protected by the Federal Confidentiality of Alcohol and Drug AbusePatient Records regulations: The Federal rules restrict any use of the information to criminally investigate or prosecute any alcohol or drug abuse patient.[facility] Encounter Details Date Type Department Care Team (Late st Contact Info) Description 10/22/2008 Patient Msg Medical Records [address] [place] [address] Provider, Ccf RE: Appointment Cancellation Request Social [...] Description 01/04/2025 9:45 AM EDT Office Visit [facility] [address] [place] [address] [place] [address] 3 week follow up lab CHEMOTX CARBO/TAXOL/KEYTRUD A 01/04/2025 10:00 AM EDT Visit (SP) Office Hematology/Oncology [address] [place] [address] Nicholas Gracia MD [address] [place] [address] 3 week follow up lab CHEMOTX CARBO/TAXOL/KEYTRUD A 01/04/2025 10:30 AM EDT [facility] Hematology/Oncology [address] [place] [address] [place] [address] 3 week follow up lab CHEMOTX CARBO/TAXOL/KEYTRUD A 02/22/2025 11:30 AM EDT Office Visit Palliative Medicine [address] [place] [address] [place] [address] Dianne Keller, TRANSPLANTER ORCHID.TEST MANAGER [address] [place] [address] 3 month follow up documented as of this encounter Visit Diagnoses Not on filedocumented in this encounter Care Teams Special Events Driver Relationship Specialty Start Date End Date Gerson Gonzalez Jr., DO [address] [place] [address] PCP - General 08/24/01 Gerson Gonzalez Jr., DO [address] [place] [address] Referring Internal Medicine 07/06/24 Ghislaine Thakur RN [address] [place] [address] [place] [address] Specialty Fur Designer Hematology/Oncology 08/31/24 Nicholas Gracia MD [address] [place] [address] [place] [address] Physician Hematology/Oncology 08/31/24 Dianne Keller APRN.TEST MANAGER [address] [place] [address] [place] [phone] Hospice & Palliative Medicine 08/31/24 Jazmyne Bryson RN Specialty Fur Designer Hospice & Palliative Medicine 08/31/24 Danielle Castellon LSW Nylon Mender 09/29/24 documented as of this encounter
--- OUTSIDE RECORDS SUMMARY | 2024-12-22 08:49 | XMS_ITS | Encounter Summary ---
Author Organization [facility] Address [address] [place], [place] [id number] Care Team Providers Care Irrigation System Installer Name Role Phone Lisa Carson DO, Charles Lewis Primary Care Provi heladio Lisa Carson DO, Charles Lewis Unavailable [phone] Ghislaine Thakur RN Unavailable [phone] Nicholas Gracia MD Unavailable [phone] Dianne Keller APRN.EDGER AUTOMATIC Unavailable + Jazmyne Bryson RN Unavailable Unavail able Danielle Castellon Unavailable Unavailable Source Comments In the event this information is protected by the Federal Confidentiality of Alcohol and Drug AbusePatient Records regulations: The Federal rules restrict any use of the information to criminally investigate or prosecute any alcohol or drug abuse patient.[facility] Encounter Details Date Type Department Care Team (Latest Contact Info) Description 12/12/2024 Travel Social History Tobacco Use Types Packs/Day Years [...] is lower risk 8 04/10/2023 Data from: https://www.neighborhoodatlas.medicine.[facility]/. Last address used for calculation [address] 04/10/2023 Comments No Sex and [...] Upcoming Encounters Date Type Department Care Team (Mal gardner Contact Info) Description 01/04/2025 9:45 AM EDT Office Visit [facility] Laboratory [address] [place] [address] 3 week follow up lab CHEMOTX CARBO/TAXOL/KEYTRUD A 01/04/2025 10:00 AM EDT Visit (SP) Office Hematology/Oncology [address] [facility] [address] [place] [address] Nicholas Gracia MD [address] [place] [address] [place] [address] 3 week follow up lab CHEMOTX CARBO/TAXOL/KEYTRUD A 01/04/2025 10:30 AM EDT [facility] Hematology/Oncology [address] [place] [address] [place] [address] 3 week follow up lab CHEMOTX CARBO/TAXOL/KEYTRUD A 02/22/2025 11:30 AM EDT Office Visit Palliative Medicine [address] [place] [address] [place] [address] Dianne Keller, LEPIDOPTERIST.EDGER AUTOMATIC [address] [id number] 3 month follow up documented as of this encounter Visit Diagnoses Not on filedocumented in this encounter Care Teams Irrigation System Installer Relationship Specialty Start Date End Date Gerson Gonzalez Jr., DO [facility] [place] [phone] PCP - General 08/24/01 Gerson Gonzalez Jr., DO [address] [place] [address] Referring Internal Medicine 07/06/24 Ghislaine Thakur RN [address] [place] [address] Specialty Retail Agent Hematology/Oncology 08/31/24 Nicholas Gracia MD [address] [address] Physician Hematology/Oncology 08/31/24 Dianne Keller APRN.EDGER AUTOMATIC [address] [address] Hospice & Palliative Medicine 08/31/24 Jazmyne Bryson, RN Specialty Retail Agent Hospice & Palliative Medicine 08/31/24 Danielle Castellon LSW Leach Runner 09/29/24 documented as of this encounter
--- OUTSIDE RECORDS SUMMARY | 2024-12-22 08:49 | XMS_ITS | Encounter Summary ---
Author Organization [facility] Address [address] [place], [place] [id number] Care Team Providers Care Diploma Maker Name Role Phone Lisa Carson DO, Charles Lewis Primary Care Provi heladio Lisa Carson DO, Charles Lewis Unavailable [phone] Ghislaine Thakur RN Unavailable [phone] Nicholas Gracia MD Unavailable [phone] Dianne Keller APRN.DIMENSION WAREHOUSE SUPERVISOR Unavailable + Jazmyne Bryson RN Unavailable Unavail able Danielle Castellon Unavailable Unavailable Source Comments In the event this information is protected by the Federal Confidentiality of Alcohol and Drug AbusePatient Records regulations: The Federal rules restrict any use of the information to criminally investigate or prosecute any alcohol or drug abuse patient.[facility] Encounter Details Date Type Department Care Team (Latest Contact Info) Description 12/14/2024 Travel Social History Tobacco Use Types Packs/Day [...] is lower risk 8 04/10/2023 Data from: https://www.neighborhoodatlas.medicine.[facility]/. Last address used for calculation [address] [...] Description 01/04/2025 9:45 AM EDT Office Visit [facility] Laboratory [address] [place] [address] 3 week follow up lab CHEMOTX CARBO/TAXOL/KEYTRUD A 01/04/2025 10:00 AM EDT Visit (SP) Office Hematology/Oncology [address] [place] [address] Nicholas Gracia MD [address] [place] [address] [place] [address] 3 week follow up lab CHEMOTX CARBO/TAXOL/KEYTRUD A 01/04/2025 10:30 AM EDT [facility] Hematology/Oncology [address] [place] [address] [place] [address] 3 week follow up lab CHEMOTX CARBO/TAXOL/KEYTRUD A 02/22/2025 11:30 AM EDT Office Visit Palliative Medicine [address] [place] [address] [place] [address] Dianne Keller, LEAD HANDLER.DIMENSION WAREHOUSE SUPERVISOR [address] [id number] 3 month follow up documented as of this encounter Visit Diagnoses Not on filedocumented in this encounter Care Teams Diploma Maker Relationship Specialty Start Date End Date Gerson Gonzalez Jr., DO [facility] [place] [phone] PCP - General 08/24/01 Gerson Gonzalez Jr., DO [address] [place] [address] Referring Internal Medicine 07/06/24 Ghislaine Thakur RN [address] [place] [address] Specialty Air Table Operator Hematology/Oncology 08/31/24 Nicholas Gracia MD [address] [facility] [place] [address] Physician Hematology/Oncology 08/31/24 Dianne Keller APRN.DIMENSION WAREHOUSE SUPERVISOR [address] [facility] [place] [address] Hospice & Palliative Medicine 08/31/24 Jazmyne Bryson, RN Specialty Air Table Operator Hospice & Palliative Medicine 08/31/24 Danielle Castellon LSW Qa Developer 09/29/24 documented as of this encounter
--- OUTSIDE RECORDS SUMMARY | 2024-12-22 08:49 | XMS_ITS | Encounter Summary ---
Author Organization [facility] Address [address] [place] [address] Care Team Providers Care Insulation Inspector Name Role Phone Lisa Carson DO, Charles Lewis Primary Care Provi heladio Lisa Carson DO, Charles Lewis Unavailable [phone] Ghislaine Thakur RN Unavailable [phone] Nicholas Gracia MD Unavailable [phone] Dianne Keller APRN.ARCHITECTURAL JOB CAPTAIN Unavailable + Jazmyne Bryson RN Unavailable Unavail able Danielle Castellon Unavailable Unavailable Source Comments In the event this information is protected by the Federal Confidentiality of Alcohol and Drug AbusePatient Records regulations: The Federal rules restrict any use of the information to criminally investigate or prosecute any alcohol or drug abuse patient.[facility] Encounter Details Date Type Department Care Team (Late st Contact Info) Description 12/01/2019 Patient Msg Plastic Surgery [address] [place], [place] [phone] Provider, Ccf RE:Medical botox/Dr. Balbuena Social History Tobacco Use Types Packs/Day Years [...] 01/04/2025 9:45 AM EDT Office Visit [facility] Laboratory [address] [place] [address] [place] [address] 3 week follow up lab CHEMOTX CARBO/TAXOL/KEYTRUD A 01/04/2025 10:00 AM EDT Visit (SP) Office Hematology/Oncology [address] [facility] [place] [address] Nicholas Gracia MD [address] [place] [address] 3 week follow up lab CHEMOTX CARBO/TAXOL/KEYTRUD A 01/04/2025 10:30 AM EDT [facility] Hematology/Oncology [address] [place] [address] 3 week follow up lab CHEMOTX CARBO/TAXOL/KEYTRUD A 02/22/2025 11:30 AM EDT Office Visit Palliative Medicine [address] [place] [address] Dianne Keller, WATER INSPECTOR.ARCHITECTURAL JOB CAPTAIN [address] [place] [address] 3 month follow up documented as of this encounter Visit Diagnoses Not on filedocumented in this encounter Care Teams Insulation Inspector Relationship Specialty Start Date End Date Gerson Gonzalez Jr., DO [facility] [facility] [place] [phone] PCP - General 08/24/01 Gerson Gonzalez Jr., DO [facility] [facility] [place] [address] Referring Internal Medicine 07/06/24 Ghislaine Thakur RN [address] [place] [address] Specialty Aircraft Structure Mechanic Hematology/Oncology 08/31/24 Nicholas Gracia MD [facility] [place] [address] [place] [address] Physician Hematology/Oncology 08/31/24 Dianne Keller WATER INSPECTOR.ARCHITECTURAL JOB CAPTAIN [address] [place] [address] [place] [address] Hospice & Palliative Medicine 08/31/24 Jazmyne Bryson, RN Specialty Aircraft Structure Mechanic Hospice & Palliative Medicine 08/31/24 Danielle Castellon LSW Assembler Motor Vehicle 09/29/24 documented as of this encounter
--- OUTSIDE RECORDS SUMMARY | 2024-12-22 08:49 | XMS_ITS ---
Author Organization [facility] Address [address] [place], [place] [id number] Care Team Providers Care Mems Device Scientist Name Role Phone Lisa Carson DO, Charles Lewis Primary Care Provi heladio Lisa Carson DO, Charles Lewis Unavailable + [phone] Ghislaine Thakur RN Unavailable [phone] Nicholas Gracia MD Unavailable [phone] Dianne Keller WINDOWS DESKTOP ENGINEER.RIVER DRIVER Unavailable + Jazmyne Bryson RN Unavailable Unavail able Danielle Castellon Unavailable Unavailable Active Problems Problem Noted Date Diagnosed Date Malignant neoplasm of overlapping sites of right lung 08/23/2024 Obesity, Class I, BMI 30-34.9 11/12/2021 Vasomotor symptoms due to menopause 11/12/2021 Multiple thyroid nodules 11/12/2021 Vertical nystagmus 12/21/2013 Unspecified disorder of muscle, ligament, and fa scia 11/04/2012 Myalgia and myositis, unspecified 05/07/2011 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 Post-op had deficits including left hemiparesis, left facial droop, dysarthria, diplopia. 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 Anxiety state, unspecified Current Treatment and Therapy Plans AMB BONE MODIFYING AGENT: $$$$ - Q6 WEEKS IF CRCL IS LESS THAN 30 ML/MIN - DENOSUMAB* Plan Start Date:09/14/2024 Plan Provider:Nicholas Gracia MD Linked Problems Malignant neoplasm of overla pping sites of right lung (HCC) Treatment Medications Current Day (Day 1 , Cycle 1 - Planned for 09/14/2024) Next Day (Day 1, Cycle 2 - Planned for 10/26/2024) denosumab (XGEVA) denosumab 120 mg inj ection (XGEVA) denosumab 120 mg injection (XGEVA) AMB PEMBROLIZUMAB 200 PACLITAXEL 200 CARBOPLATIN 6 D1 - Q21D THEN PEMBROLIZUMAB 200 D1 - Q21D* Plan Start Date:09/14/2024 Plan Provider:Luis M Silvestre DO Linked Problems Malignant neoplasm of overla pping sites of right lung (HCC) Treatment Medications Current Day (Day 1 , Cycle 6 - Planned for 01/04/2025) Next Day (Day 1, Cycle 7 - Planned for 01/25/2025) CARBOplatin iv piggyback (PARAPLATIN)fosaprepitant (EMEND)fosaprepitant iv piggyback in NaCl 0.9% (EMEND)PACLitaxel iv piggyback in 500 mL (TAXOL)palonosetron (ALOXI)pegfilgrastim-cbqv (UDENYCA ONBODY)pembrolizumab IV infusion (KEYTRUDA) pembrolizumab 200 mg in NaCl 0.9% 58 mL (KEYTRUDA) pembrolizumab 200 mg in NaCl 0.9% 58 mL (KEYTRUDA) Past Treatment and Therapy Plans No past plan information found.
--- OUTSIDE RECORDS SUMMARY | 2024-12-22 08:49 | XMS_ITS | Encounter Summary ---
Author Organization [facility] Address [address] [place] [address] Care Team Providers Care Manager Search Engine Name Role Phone Lisa Carson DO, Charles Lewis Primary Care Provi heladio Lisa Carson DO, Charles Lewis Unavailable [phone] Ghislaine Thakur RN Unavailable [phone] Nicholas Gracia MD Unavailable [phone] Dianne Keller APRN.NEWS CLIPPING CUTTER Unavailable + Jazmyne Bryson RN Unavailable Unavail able Danielle Castellon Unavailable Unavailable Source Comments In the event this information is protected by the Federal Confidentiality of Alcohol and Drug AbusePatient Records regulations: The Federal rules restrict any use of the information to criminally investigate or prosecute any alcohol or drug abuse patient.[facility] Encounter Details Date Type Department Care Team (Late st Contact Info) Description 06/10/2019 Abstract Dentistry [address] [phone] Conversion, [employer] Social History Tobacco Use Types Packs/Day Years [...] 01/04/2025 9:45 AM EDT Office Visit [facility] Laboratory [address] [place] [address] [place] [address] 3 week follow up lab CHEMOTX CARBO/TAXOL/KEYTRUD A 01/04/2025 10:00 AM EDT Visit (SP) Office Hematology/Oncology [address] [place] [address] [place] [address] Nicholas Gracia MD [address] [place] [address] [place] [address] 3 week follow up lab CHEMOTX CARBO/TAXOL/KEYTRUD A 01/04/2025 10:[address] [facility] Hematology/Oncology [address] [place] [address] [place] [address] 3 week follow up lab CHEMOTX CARBO/TAXOL/KEYTRUD A 02/22/2025 11:30 AM EDT Office Visit Palliative Medicine [address] [place] [address] [place] [address] Dianne Keller, PRODUCTION MACHINIST.NEWS CLIPPING CUTTER [address] [place] [address] 3 month follow up documented as of this encounter Procedures Procedure Name Priority Date/Time Associated Diagnosis Comments RE-EVALUATION - LIMITED, PROBLEM FOCUSED (ESTABLISHED PATIENT; NOT POST-OPERATIVE VISIT) Routine 11/03/2012 12:00 AM EDT documented in this encounter Visit Diagnoses Not on filedocumented in this encounter Care Teams Manager Search Engine Relationship Specialty Start Date End Date Gerson Gonzalez Jr., DO [address] [place] [phone] PCP - General 08/24/01 Gerson Gonzalez Jr., [address] [place] [phone] Referring Internal Medicine 07/06/24 Ghislaine Thakur RN [address] [place] [address] [place] [address] Specialty Slurry Control Tender Hematology/Oncology 08/31/24 Nicholas Gracia MD [address] [place] [address] [place] [address] Physician Hematology/Oncology 08/31/24 Dianne Keller APRN.[facility] [address] [place] [address] [place] [address] Hospice & Palliative Medicine 08/31/24 Jazmyne Bryson, RN Specialty Slurry Control Tender Hospice & Palliative Medicine 08/31/24 Danielle Castellon LSW Cloth Measurer Machine 09/29/24 documented as of this encounter
--- OUTSIDE RECORDS SUMMARY | 2024-12-22 08:49 | XMS_ITS | Clinical Summary ---
Author Organization [facility] Address [id number] [address] [place] [address] Care Team Providers Care Portfolio Architect Name Role Phone Lisa Carson DO, Charles L Primary Care Provider Allergies No known active allergies Medications clonazePAM (KlonoPIN) 0.5 mg tablet Take 0.25 mg by mouth every morning before breakfast. Active calcium carbonate (OS-OBI) 600 mg (1,500 mg) tablet Take 1 tablet (600 mg total) by mouth in the morning and 1 tablet (600 mg total) in the evening. Take with meals. Active cholecalciferol , vitamin D3, (VITAMIN D3) 1,000 units tablet Take 1 tablet (1,000 Units total) by mouth in the morning. Active gabapentin (NEURONTIN) 600 mg tablet Take 300 mg by mouth in the morning. Active pravastatin (PRAVACHOL) 10 mg tablet Take 10 mg by mouth in the morning. 02/26/2022 Active ezetimibe (ZETIA) 10 mg tablet Take 10 mg by mouth as needed. 10/03/2021 Active FLUoxetine (PROzac) 10 mg capsule TAKE 1 CAPSULE BY MOUTH EVERY DAY FOR 90 DAYS 02/26/2022 Active magnesium oxide-Mg AA chelate 300 mg capsule Take 300 mg by mouth. Active propranoloL (INDERAL) 20 mg tablet as needed. 07/24/2021 Active levothyroxine (SYNTHROID, LEVOTHROID) 25 MCG tablet TAKE 1 TABLET IN THE MORNING BEFORE A MEAL EVERY DAY 03/27/2023 Active docosahexaenoic acid/epa (FISH OIL ORAL) Take by mouth. Active vit A/vit C/vit E/zinc/copper (PRESERVISION AREDS ORAL) Take by mouth. Active carboxymethylce ll/hypromellose (GENTEAL GEL OPHT) Instill to eye. Active Active Problems Problem Noted Date Diagnosed Date Disease of thyroid gland 07/20/2017 Overview (10/25/2018): Nodules and goiter, non cancerous Obesity 07/20/2016 Overview (10/25/2018): Lost 45 lb..then gained back.. Allergic 07/20/2016 Overview (10/25/2018): Seasonal tree pollen Closed fracture of left proximal humerus 016 HL (hearing loss) 07/20/2009 Overview (10/25/2018): 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 Varicella Stroke Arthritis Overview (10/25/2018): Of neck, knee Family History Medical History Relation Name Comments Stroke Father Noe Ace from an eurism bleed in brain Hypertension Mother Anila Ace Arthritis Sister Javed Mohan Lots of arthrit is issues Hypertension Sister Javed Mohan Relation Name Status Comments Father Noe Ace Mother Anila Mohan Social History Tobacco Use Types Packs/Day Years Used Date Smoking Tobacco: Former Cigarettes Q uit: 1998 Smokeless Tobacco: Never Tobacco Cessation:Counseling Given: Not Answered Alcohol Use Standard Drinks/Week Comments No 0 (1 standard drink = 0.6 oz pur e alcohol) Childcare Answer Date Recorded Childcare Unknown 12/29/2018 Employment Answer Date Recorded Employment Unknown 12/29/2018 Purpose - Life Answer Date Recorded Purpose and direction in life Unknown Comments Unknown Sex and Gender Information Value Date Recorded Sex Assigned at Not on file Legal Sex Female 11:34 AM EDT Gender Identity Not on file Sexual Orientation Not on file Last Filed Vital Signs Vital Sign Reading Time Taken Comments Blood Pressure 134/81 11/19/2015 8:57 AM EDT Pulse 97 11/19/2015 8:57 AM EDT Temperature - - Respiratory Rate - - Oxygen Saturation - - Inhaled Oxygen Concentration - - Weight 94.3 kg (208 lb) 10/25/2018 1:17 PM EDT Height 175.3 cm (5' 9 ) 10/25/2018 1:17 PM EDT Body Mass Index 30.72 10/25/2018 1:17 PM EDT Plan of Treatment Health Maintenance Due Date Last Done Comments Depression Screening 1968 Adult BMI Screening 1974 DTaP,Tdap and Td Vaccines (1 - Tdap) 09/24/1975 Zoster (Shingles) Vaccine (1 of 2) 2006 Fall Risk Screening 2021 COVID-19 Vaccine (4 - 2023-2 5 season) 2024 07/02/2021, 01/08/2021, 10/08/2020 Tobacco Screening 04/16/2024 04/16/2023 Influenza Vaccine 03/20/2025 Medical Devices Not on file Insurance [facility] MEDICARE Care Teams Portfolio Architect Relationship Specialty Start Date End Date Gerson Gonzalez Jr., DO [facility] [place] [address] PCP - General Internal Medicine 10/08/18
--- OUTSIDE RECORDS SUMMARY | 2024-12-22 08:49 | XMS_ITS | Encounter Summary ---
Author Organization [facility] Address [address] [place] [address] Care Team Providers Care Aircraft Assembler Name Role Phone Lisa Carson DO, Charles Lewis Primary Care Provi heladio Lisa Carson DO, Charles Lewis Unavailable [phone] Ghislaine Thakur RN Unavailable [phone] Nicholas Gracia MD Unavailable [phone]STREET DEPARTMENT DISPATCHER Unavailable + Jazmyne Bryson RN Unavailable Unavail able Danielle Castellon Unavailable Unavailable Source Comments In the event this information is protected by the Federal Confidentiality of Alcohol and Drug AbusePatient Records regulations: The Federal rules restrict any use of the information to criminally investigate or prosecute any alcohol or drug abuse patient.[facility] Encounter Details Date Type Department Care Team (Late st Contact Info) Description 10/18/2023 Patient Msg Otolaryngology [address] [id number] Adina Rosales MD [address] [place] [address] 8100 [place] [address] Checking in on injections Social History Tobacco Use Types Packs/Day Years Used Date Smoking Tobacco: Former Cigarettes 1.5 18 0 07/20/1981 - 07/20/1999 Smokeless Tobacco: Never Alcohol Use Standard Drinks/Week Comments No 0 (1 standard drink = 0.6 oz pur e alcohol) Area Deprivation Index Answer Date Mac rded National Score (1-100), lower number is lower ri sk 87 04/10/2023 State Score (1-10), lower number is lower risk 8 04/10/2023 Data from: https://www.neighborhoodatlas.medicine.[facility].edu/. Last address used for calculation [address] 04/10/2023 Comments No Sex and Gender Information [...] Entry Date Author No 09/15/2014 12:58 PM EST Penny Nath MA documented in this encounter Plan of Treatment Upcoming Encounters Date Type Department Care Team (Late st Contact Info) Description 01/04/2025 9:45 AM EDT Office Visit [facility] [address] [place] [address] [place] [address] 3 week follow up lab CHEMOTX CARBO/TAXOL/KEYTRUD A 01/04/2025 10:00 AM EDT Visit (SP) Office Hematology/Oncology [address] [place] [address] [place] [address] Nicholas Gracia MD [address] [place] [address] [place] [address] 3 week follow up lab CHEMOTX CARBO/TAXOL/KEYTRUD A 01/04/2025 10:30 AM EDT [facility] Hematology/Oncology [address] [place] [address] [place] [address] 3 week follow up lab CHEMOTX CARBO/TAXOL/KEYTRUD A 02/22/2025 11:30 AM EDT Office Visit Palliative Medicine [address] [place] [address] [place] [address] Dianne Keller, RAIL GRINDER.STREET DEPARTMENT DISPATCHER [address] [id number] 3 month follow up documented as of this encounter Visit Diagnoses Not on filedocumented in this encounter Care Teams Aircraft Assembler Relationship Specialty Start Date End Date Gerson Gonzalez Jr., DO [address] [facility] [place] [phone] PCP - General 08/24/01 Gerson Gonzalez Jr., DO [address] [facility] [place] [place] [phone] Referring Internal Medicine 07/06/24 Ghislaine Thakur RN [address] [facility] [place] [address] Specialty Flag Signaler Hematology/Oncology 08/31/24 Nicholas Gracia MD [address] [facility] [place] [address] Physician Hematology/Oncology 08/31/24 Dianne Keller APRN.STREET DEPARTMENT DISPATCHER [address] [facility] [place] [address] Hospice & Palliative Medicine 08/31/24 Jazmyne Bryson, RN Specialty Flag Signaler Hospice & Palliative Medicine 08/31/24 Danielle Castellon LSW Rn Home Health 09/29/24 documented as of this encounter
--- OUTSIDE RECORDS SUMMARY | 2024-12-22 08:49 | XMS_ITS | Encounter Summary ---
Author Organization [facility] Address [address] [place] [address] Care Team Providers Care Clinical Geneticist Name Role Phone Lisa Carson DO, Charles Lewis Primary Care Provi heladio Lisa Carson DO, Charles Lewis Unavailable [phone] Ghislaine Thakur RN Unavailable [phone] Nicholas Gracia MD Unavailable [phone] Dianen Keller APRN.OPERATORS SCHOOL MANAGER Unavailable + Jazmyen Bryson RN Unavailable Unavail able Danielle Castellon Unavailable Unavailable Source Comments In the event this information is protected by the Federal Confidentiality of Alcohol and Drug AbusePatient Records regulations: The Federal rules restrict any use of the information to criminally investigate or prosecute any alcohol or drug abuse patient.[facility] Encounter Details Date Type Department Care Team (Late st Contact Info) Description 03/31/2023 Get Medical [place]ice [place] [address] [place], [place] [phone] Stephane Balbuena MD [address] [place] [address] [place] [address] Botox Clinic this Thursday.. Social History Tobacco Use Types Packs/Day Years Used Date Smoking Tobacco: Former Cigarettes 1.5 18 0 07/20/1981 - 07/20/1999 Smokeless Tobacco: Never Alcohol Use Standard Drinks/Week Comments No 0 (1 standard drink = 0.6 oz pur e alcohol) Area Deprivation Index Answer Date Mac rded National Score (1-100), lower number is lower ri sk 74 08/15/2022 State Score (1-10), lower number is lower risk N ot on file 08/15/2022 Data from: https://www.neighborhoodatlas.medicine.[facility].edu/. Last address used for calculation [address] 08/15/2022 Comments No Sex and Gender Information Value [...] Description 01/04/2025 9:45 AM EDT Office Visit [facility] [address] [place] [address] [place] [address] 3 week follow up lab CHEMOTX CARBO/TAXOL/KEYTRUD A 01/04/2025 10:00 AM EDT Visit (SP) Office Hematology/Oncology [address] [place] [address] [place] [address] Nicholas Gracia MD [address] [place] [address] [place] [address] 3 week follow up lab CHEMOTX CARBO/TAXOL/KEYTRUD A 01/04/2025 10:30 AM EDT [facility] Hematology/Oncology [address] [place] [address] [place] [address] 3 week follow up lab CHEMOTX CARBO/TAXOL/KEYTRUD A 02/22/2025 11:30 AM EDT Office Visit Palliative Medicine [address] [place] [address] [place] [address] Dianne Keller, ENVIRONMENTAL SERVICES MANAGER.OPERATORS SCHOOL MANAGER [address] [id number] 3 month follow up documented as of this encounter Visit Diagnoses Not on filedocumented in this encounter Care Teams Clinical Geneticist Relationship Specialty Start Date End Date Gerson Gonzalez Jr., DO [facility] [place] [phone] PCP - General 08/24/01 Gerson Gonzalez Jr., DO [address] [facility] [place] [phone] Referring Internal Medicine 07/06/24 Ghislaine Thakur RN [address] [place] [address] [place] [address] Specialty Office Messenger Helper Hematology/Oncology 08/31/24 Nicholas Gracia MD [address] [facility] [address] Physician Hematology/Oncology 08/31/24 Dianne Keller APRN.OPERATORS SCHOOL MANAGER [address] [facility] [place] [phone] Hospice & Palliative Medicine 08/31/24 Jazmyne Bryson, RN Specialty Office Messenger Helper Hospice & Palliative Medicine 08/31/24 Danielle Castellon LSW Manager Architectural 09/29/24 documented as of this encounter
--- OUTSIDE RECORDS SUMMARY | 2024-12-22 08:49 | XMS_ITS | Encounter Summary ---
Author Organization [facility] Address [address] [place], [place] [id number] Care Team Providers Care Block Mason Name Role Phone Lisa Carson DO, Charles Lewis Primary Care Provi heladio Lisa Carson DO, Charles Lewis Unavailable [phone] Ghislaine Thakur RN Unavailable [phone] Nicholas Gracia MD Unavailable [phone] Dianne Keller APRN.INTERNATIONAL TRADE TEACHER Unavailable + Jazmyne Bryson RN Unavailable Unavail able Danielle Castellon Unavailable Unavailable Source Comments In the event this information is protected by the Federal Confidentiality of Alcohol and Drug AbusePatient Records regulations: The Federal rules restrict any use of the information to criminally investigate or prosecute any alcohol or drug abuse patient.[facility] Reason for Visit * Reason Comments Care Coordination Thyroid nodules Encounter Details Date Type Department Care Team (Late st Contact Info) Description 12/19/2024 Telephone Hematology/Oncology [address] [place] [address] [place] [address] Ghislaine Thakur, RN [address] [facility] [place] [address] Care Coordination (Thyroid nodules) Social History Tobacco Use Types Packs/Day Years [...] is lower risk 8 04/10/2023 Data from: https://www.neighborhoodatlas.medicine.[facility].edu/. Last address used for calculation [address] 04/10/2023 Comments No Sex and [...] Penny Martinez MA documented in this encounter Miscellaneous Notes * Telephone Encounter - Ghislaine Thakur RN - 12/19/2024 11:30 AM EDT Results received of right upper arm ultrasound and results show right thyroid nodules measuring up to 2.7 cm noted. Call placed to pt who states her PCP has been monitoring the nodules for years and she's had biopsies done as well in the past. Results faxed to PCP's office. Ghislaine Thakur RN documented in this encounter Plan of Treatment Upcoming Encounters Date Type Department Care Team (Late st Contact Info) Description 01/04/2025 9:45 AM EDT Office Visit [facility] Laboratory [address] [place] [address] [place] [address] 3 week follow up lab CHEMOTX CARBO/TAXOL/KEYTRUD A 01/04/2025 10:00 AM EDT Visit (SP) Office Hematology/Oncology [address] [place] [address] [place] [address] Nicholas Gracia MD [address] [place] [address] [place] [address] 3 week follow up lab CHEMOTX CARBO/TAXOL/KEYTRUD A 01/04/2025 10:30 AM EDT [facility] Hematology/Oncology [address] [place] [address] [place] [address] 3 week follow up lab CHEMOTX CARBO/TAXOL/KEYTRUD A 02/22/2025 11:30 AM EDT Office Visit Palliative Medicine [address] [place] [address] [place] [address] Dianne Keller, SUPERVISOR PULLET FARM.INTERNATIONAL TRADE TEACHER [address] [place] [address] 3 month follow up documented as of this encounter Visit Diagnoses Not on filedocumented in this encounter Care Teams Block Mason Relationship Specialty Start Date End Date Gerson Gonzalez Jr., DO [address] [place] [id number] PCP - General 08/24/01 Gerson Gonzalez Jr., DO [address] [place] [id number] Referring Internal Medicine 07/06/24 Ghislaine Thakur RN [address] [place] [address] [place] [address] Specialty Commanding Officer Homicide Squad Hematology/Oncology 08/31/24 Nicholas Gracia MD [address] [place] [address] [place] [address] Physician Hematology/Oncology 08/31/24 Dianne Keller APRN.INTERNATIONAL TRADE TEACHER [address] [place] [address] [place] [address] Hospice & Palliative Medicine 08/31/24 Jazmyne Bryson RN Specialty Commanding Officer Homicide Squad Hospice & Palliative Medicine 08/31/24 Danielle Castellon LSW Teacher Cclc 09/29/24 documented as of this encounter
--- OUTSIDE RECORDS SUMMARY | 2024-12-22 08:49 | XMS_ITS | Encounter Summary ---
Author Organization [facility] Address [address] [place] [address] Care Team Providers Care Apple Turner Name Role Phone Lisa Carson DO, Charles Lewis Primary Care Provi heladio Lisa Carson DO, Charles Lewis Unavailable [phone] Ghislaine Thakur RN Unavailable [phone] Nicholas Gracia MD Unavailable [phone] Dianne Keller APRN.HOPPER FILLER Unavailable + Jazmyne Bryson RN Unavailable Unavail able Danielle Castellon Unavailable Unavailable Source Comments In the event this information is protected by the Federal Confidentiality of Alcohol and Drug AbusePatient Records regulations: The Federal rules restrict any use of the information to criminally investigate or prosecute any alcohol or drug abuse patient.[facility] Encounter Details Date Type Department Care Team (Late st Contact Info) Description 02/20/2023 Get Medical Advice Facial Pl[place] [address] [place], [place] [phone] Stephane Balbuena MD [address] [place], [place] [address] [address] Botox Appointmenr Social History Tobacco Use Types Packs/Day Years [...] N ot on file 08/15/2022 Data from: https://www.neighborhoodatlas.medicine.[facility].edu/. Last address used for calculation [address] [...] Description 01/04/2025 9:45 AM EDT Office Visit [facility] [address] [place] [address] [place] [address] 3 week follow up lab CHEMOTX CARBO/TAXOL/KEYTRUD A 01/04/2025 10:00 AM EDT Visit (SP) Office Hematology/Oncology [address] [place] [address] [place] [address] Nicholas Gracia MD [address] [place] [address] [place] [address] 3 week follow up lab CHEMOTX CARBO/TAXOL/KEYTRUD A 01/04/2025 10:30 AM EDT [facility] Hematology/Oncology [address] [place] [address] [place] [address] 3 week follow up lab CHEMOTX CARBO/TAXOL/KEYTRUD A 02/22/2025 11:30 AM EDT Office Visit Palliative Medicine [address] [place] [address] [place] [address] Dianne Keller, RACETRACK STEWARD.HOPPER FILLER [address] [phone] 3 month follow up documented as of this encounter Visit Diagnoses Not on filedocumented in this encounter Care Teams Apple Turner Relationship Specialty Start Date End Date Gerson Gonzalez Jr., DO [facility] [place] [phone] PCP - General 08/24/01 Gerson Gonzalez Jr., DO [facility] [address] Referring Internal Medicine 07/06/24 Ghislaine Thakur, RN [address] [place] [address] [place] [address] Specialty Consumer Lender Hematology/Oncology 08/31/24 Nicholas Gracia MD [address] [place] [address] [place] [address] Physician Hematology/Oncology 08/31/24 Dianne Keller APRN.HOPPER FILLER [address] [place] [address] [place] [phone] Hospice & Palliative Medicine 08/31/24 Jazymne Bryson, RN Specialty Consumer Lender Hospice & Palliative Medicine 08/31/24 Danielle Castellon LSW Painter Chassis 09/29/24 documented as of this encounter
--- OUTSIDE RECORDS SUMMARY | 2024-12-22 08:49 | XMS_ITS | Clinical Summary ---
Author Organization [facility] Address [address] [facility] [place] [address] Care Team Providers Care Collection Agent Name Role Phone Gerson Gonzalez MD Primary Care Provider [phone] Shasta Flood Unavailable Allergies Active Allergy Reactions Criticality Noted Date Comments Other Itching High 01/02/2010 Seasonal allergies Medications ezetimibe (Zetia) 10 MG tablet Take 10 mg by mouth in the morning. 09/28/19 23 Active cholecalciferol (Vitamin D-3) 25 MCG (1000 UT) tablet Take 1,000 Units by mouth in the morning. Active modafinil (Provigil) 200 MG tablet 01/02/20 23 Active ascorbic acid (Vitamin C) 500 mg/mL oral liquid Take by mouth Daily Active Multiple Vitamins-Mineral s (PRESERVISION AREDS 2 PO) Take by mouth Active levothyroxine (Synthroid, Levoxyl) 25 MCG tablet Take 25 mcg by mouth in the morning. Take before meals. 03/27/20 23 Active MAGNESIUM BISGLYCINATE PO Take 300 mg by mouth Active FLUoxetine (PROzac) 20 MG capsule Take 20 mg by mouth Daily Active primidone (Mysoline) 50 MG tabletIndication s:Tremor Take 0.5-1 tablets (25-50 mg) by mouth at bedtime 30 tablet 2 11/23/19 25 025 Active gabapentin (Neurontin) 100 MG capsuleIndicatio ns:Trigeminal neuralgia (CMS/HCC),Anxiet y disorder, unspecified type,Tremor Take 1 capsule (100 mg) by mouth in the morning and 1 capsule (100 mg) before bedtime. 180 capsule 12/08/19 25 Active gabapentin (Neurontin) 100 MG capsuleIndicatio ns:Trigeminal neuralgia (CMS/HCC),Anxiet y disorder, unspecified type,Tremor Take 1 capsule (100 mg) by mouth in the morning and 1 capsule (100 mg) before bedtime. 60 capsule 2 10/11/19 25 025 Discontinued Active Problems Problem Noted Date Diagnosed Date Anxiety 11/12/2023 Overview (11/12/2023): She is having increasing anxiety and depression with panic attacks. She was started on Inderal which is known to help panic attacks. She did have cardiac work up which was negative. She is taking propranolol as needed. She has weaned klonopin to 1/4 daily but has had worsening eye movements. She has resumed klonopin with slight improvement in symptoms. She could not tolerate 60 mg LA of Inderal. Zoloft significantly improved her symptoms, however, she is experiencing weight gain and fatigue. She has switched to prozac but continues with symptoms of anxiety. Panic attacks 11/12/2023 Visual hallucination 11/12/2023 Overview (11/12/2023): Patient has been experiencing visual hallucinations manifested as seeing dark shadows of animals and people primarily at night that were persistent a few weeks ago and have now become less frequent. She reports a few medication changes during that time period but uncertain if these would have contributed to her symptoms. Will obtain a brain MRI to assess for intracranial process that may be contributing to her symptoms. Patient states she did not hear back from [facility] regarding scheduling. Closed fracture of lower end of left radius with routine healing 02/24/2023 Closed fracture of lower end of left ulna with routine healing 02/24/2023 Left wrist pain 02/24/2023 [place] palsy 08/11/2018 AVM (arteriovenous malformation) 08/11/2018 Overview (11/12/2023): 65 year old female with history of ruptured AVM requiring surgery in 2008 and then developed stroke during surgery. 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 She reportedly had benefit with low dose clonazepam previously. Repeat brain MRI at [facility] with Dr. 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 She was following with neuro ophthalmology. She has developed visual hallucinations which are new for her. Tension type headache 08/11/2018 Dizziness 08/11/2018 Neck pain 08/11/2018 Overview (11/12/2023): History of neck pain which remains at baseline without worsening. Cervical stenosis of spinal canal 08/11/2018 Migraine 05/26/2017 Overview (11/12/2023): Migraines are stable and infrequent. Stroke 05/26/2017 Trigeminal neuralgia 10/20/2014 Overview (11/12/2023): She has had trigeminal neuralgia and previously on neurontin. She has trialed botox in the past at [facility]. She weaned gabapentin and is feeling better without medication . Degenerative disc disease, lumbar 01/30/2014 Degenerative disc disease, cervical 02/08/2010 Overview (11/12/2023): History of neck pain. At baseline. Encounters Date Type Department Care Team Description 12/07/2024 Refill [facility] [address] [place] [phone] Shasta Flood PA Tremor (Primary Dx); Trigeminal neuralgia (CMS/HCC); Anxiety disorder, unspecified type 11/22/2024 1:20 PM EDT Office Visit [facility] [address] [place] [phone] Shasta Flood PA AVM (arteriovenous malformation) (Primary Dx); Migraine without aura and without status migrainosus, not intractable (CMS/HCC); Trigeminal neuralgia (CMS/HCC); History of stroke; Anxiety disorder, unspecified type; Tremor 11/22/2024 Bamboo flowsheet [facility] [address] [place] [phone] Shasta Flood PA 11/20/2024 Travel 10/10/2024 12:40 PM EDT Office Visit [facility] [address] [place] [phone] Shasta Flood PA AVM (arteriovenous malformation) (Primary Dx); Hallucination, hypnopompic; History of stroke; Migraine without aura and without status migrainosus, not intractable (CMS/HCC); Trigeminal neuralgia (CMS/HCC) ; Anxiety disorder, unspecified type; Tremor 10/10/2024 Bamboo flowsheet [facility] [address] [place] [phone] Shasta Flood PA from Last 3 Months Family History Medical History Relation Name Comments AVM Father Brain Aneurysm Father Cancer Father Kidney cancer Father Stroke Maternal Grandfather Breast cancer Maternal Grandmother Cancer Maternal Grandmother Hypertension Mother Hypertension Other Stroke Paternal Grandfather Melanoma Neg Hx Relation Name Status Comments Father Maternal Grandfather Maternal Grandmother Mother Alive Other Paternal Grandfather Social History Tobacco Use Types Packs/Day Years Used Date Smoking Tobacco: Former Cigarettes Smokeless Tobacco: Never Comments:Last smoked 10+ yea rs ago Alcohol Use Standard Drinks/Week Comments Never 0 (1 standard drink = 0.6 oz pur e alcohol) Caffine intake:4+ cups daily AUDIT-C Answer Date Recorded Q1: How often do you have a drink containing alc ohol? Monthly or less 11/12/2023 Q2: How many drinks containi ng alcohol do you have on a typical day when you are drinking? 1 or 2 11/12/2023 Q3: How often do you have si x or more drinks on one occasion? Never 11/12/2023 Comments Unknown Sex and Gender Information Value Date Recorded Sex Assigned at Not on file Legal Sex Female 7:08 PM EDT Gender Identity Not on file Sexual Orientation Not on file Last Filed Vital Signs Vital Sign Reading Time Taken Comments Blood Pressure 118/72 11/22/2024 1:09 PM EDT Pulse 86 11/22/2024 1:09 PM EDT Temperature - - Respiratory Rate 16 11/22/2024 1:09 PM EDT Oxygen Saturation 96% 11/22/2024 1:09 PM EDT Inhaled Oxygen Concentration - - Weight 86.2 kg (190 lb) 11/22/2024 1:09 PM EDT Height 175.3 cm (5' 9 ) 11/22/2024 1:09 PM EDT Body Mass Index 28.06 11/22/2024 1:09 PM EDT Plan of Treatment Health Maintenance Due Date Last Done Comments CT Colonography 1955 Colonoscopy 1955 FIT 1955 FOBT 1955 Sigmoidoscopy 1955 Pneumococcal Vaccine: 65+ Ye ars (1 of 1 - PCV) 2006 Mammogram 11/07/2022 11/07/2021, 10/18, 10/27/2017 Influenza Vaccine (Season Ended) 2025 Colorectal Cancer Screening 05/18/2027 FIT-DNA 05/18/2027 05/18/2024, 04/24/2021 Procedures Procedure Name Priority Date/Time Associated Diagnosis Comments BI MAMMOGRAM DIAGNOSTIC BILATERAL Routine 11/07/2021 Mastodynia from Last 3 Months or Most Recently Relevant to Health Maintenance Results * Bilateral diagnostic mammogram (11/07/2021) Anatomical Region Laterality Modality Breast Bilateral Mammography Impressions 11/07/2021 12:00 AM EDT NO MAMMOGRAPHIC EVIDENCE OF MALIGNANCY. NO IMAGING FINDINGS TO ACCOUNT FOR PATIENT'S LEFT BREAST PAIN. CLINICAL FOLLOW-UP IS SUGGESTED. ROUTINE FOLLOW-UP IS RECOMMENDED IN ONE YEAR. RESULT CODE: 1 Negative DENSITY CODE: 4 (>75% glandular) FOLLOW UP: 1YR The false-negative rate of mammography is approximately 10-percent. Management of a palpable abnormality must be based on clinical grounds. Patient was entered into a reminder system with a target due date for the next mammogram. Impression dictated by: Tierra Hernandez M.D.11/07/2021 11:04 AM Dictation Location: [facility] Tech: Shantel Harrison Transcribed By: COLETTE 11/07/21 1104 Dictated By: Tierra Hernandez MD 11/07/21 1100 Signed By: <Electronically signed by MD Tierra Hernandez in OV> 11/07/21 1104 Narrative 11/07/2021 12:00 AM EDT PERFORMED AT [facility] LOCATION:[address] [place] [phone] Ultrasound Report Signed Patient: Ofe Stephenson MR#: [id number] 88 : 1955 Acct:[id number] Age/Sex: 66 / F ADM Date: 11/07/21 Loc: PA Room: Type: REG CLI Attending Dr: Vaishali Ayala DO Ordering Provider: Vaishali Ayala DO Date of Service: 11/07/21 MM/MM diagnostic mammo BI w/CAD: breast pain;Breast pain ([id number]) US/US breast LT limited: breast pain;Breast pain Copies to: Vaishali Ayala DO CLINICAL DATA: Left breast pain. BILATERAL DIAGNOSTIC MAMMOGRAMS - FULL FIELD DIGITAL WITH TOMOSYNTHESIS AND CAD Tomosynthesis craniocaudal and mediolateral oblique views of both breasts were obtained using low- dose digital technique. Comparison is made to prior studies from March 30, 2015 through November 23, 2020. This examination was reviewed with the aid of CAD. The breast parenchyma remains dense. This may lower sensitivity of mammography. There are no developing masses, typically malignant calcifications or architectural distortion. There has been no significant interval change. LIMITED LEFT BREAST ULTRASOUND Real-time ultrasound evaluation of the superior central and retroareolar region in the area of pain as indicated by the patient was performed. There is normal breast architecture with areas of dense echogenic glandular tissue. There is minimal duct ectasia in the retroareolar region. No discrete cystic or solid masses are seen. US/US breast LT limited Procedure Note CONVERSION, GENERIC - 01/23/2023 PERFORMED AT [facility] LOCATION:[address] [address] Ultrasound Report Signed Patient: Ofe Stephenson KMR#: [id number] [birth year] : 1955cct:[id number] Age/Sex: 66 / FADM Date: 11/07/21 Loc: PA Room:Type: REG CLI Attending Dr: Vaishali Ayala DO Ordering Provider: Vaishali Ayala DO Date of Service: 11/07/21 MM/MM diagnostic mammo BI w/CAD: breastpain;Breast pain ([id number]) US/US breast LT limited: breast pain;Breast pain Copies to: Vaishali Ayala DO CLINICAL DATA: Left breast pain. BILATERAL DIAGNOSTIC MAMMOGRAMS - FULL FIELD DIGITAL WITH TOMOSYNTHESISAND CAD Tomosynthesis craniocaudal and mediolateral oblique views of both breastswere obtained using low- dose digital technique. Comparison is made to prior studies fromMarch 30, 2015 through November 23, 2020. This examination was reviewed with the aid of CAD. The breast parenchyma remains dense. This may lower sensitivity ofmammography. There are no developing masses, typically malignant calcifications or architecturaldistortion. There has been no significant interval change. LIMITED LEFT BREAST ULTRASOUND Real-time ultrasound evaluation of the superior central and retroareolarregion in the area of pain as indicated by the patient was performed. There is normal breastarchitecture with areas of dense echogenic glandular tissue. There is minimal duct ectasia in theretroareolar region. No discrete cystic or solid masses are seen. US/US breast LT limited IMPRESSION: NO MAMMOGRAPHIC EVIDENCE OF MALIGNANCY. NO IMAGING FINDINGS TO ACCOUNT FOR PATIENT'S LEFT BREAST PAIN. CLINICALFOLLOW-UP IS SUGGESTED. ROUTINE FOLLOW-UP IS RECOMMENDED IN ONE YEAR. RESULT CODE: 1 Negative DENSITY CODE: 4 (>75% glandular) FOLLOW UP: 1YR The false-negative rate of mammography is approximately 10-percent. Management of a palpable abnormality must be based on clinical grounds. Patient was entered into a reminder system with a target due date for thenext mammogram. Impression dictated by: Tierra Hernandez M.D.11/07/2021 11:04 AM Dictation Location: [facility] Tech: Shantelashley Harrison Transcribed By: COLETTE 11/07/21 1104 Dictated By: Tierra Hernandez MD 11/07/21 1100 Signed By: <Electronically signed by MD Tierra Hernandez in OV> 11/07/21 1104 us Vaishali Ayala DO IMG BI PROCEDURES Final Res ult from Last 3 Months or Most Recently Relevant to Health Maintenance Insurance MEDICARE GENERIC COMMERCIAL Care Teams Collection Agent Relationship Specialty Start Date End Date Gerson Gonzalez MD [address] [place], [place] [phone] PCP - General Internal Medicine 01/07/23 Shasta Flood PA [address] [place] [address] Physician Armhole Baster Hand Neurology 10/10/24
--- OUTSIDE RECORDS SUMMARY | 2024-12-22 08:49 | XMS_ITS | Clinical Summary ---
Author Organization [facility] Address [address] [place] [place] [address] Care Team Providers Care Grain Inspector Name Role Phone Unavailable Primary Care Provider Unavailabl e Social History Tobacco Use Types Packs/Day Years Used Date Smoking Tobacco: Never Assessed Sex and Gender Information Value Date Recorded Sex Assigned at Not on file Gender Identity Not on file Sexual Orientation Not on file Plan of Treatment Not on file
--- OUTSIDE RECORDS SUMMARY | 2024-12-22 08:49 | XMS_ITS | Encounter Summary ---
Author Organization [facility] Address [address] [place] [address] Care Team Providers Care Res Habilitation Assistant Name Role Phone Lisa Carson DO, Charles Lewis Primary Care Provi heladio Lisa Carson DO, Charles Lewis Unavailable [phone] Ghislaine Thakur RN Unavailable [phone] Nicholas Gracia MD Unavailable [phone] Dianne Keller APRN.OIL SPRAYING MACHINE OPERATOR Unavailable + Jazmyne Bryson RN Unavailable Unavail able Danielle Castellon Unavailable Unavailable Source Comments In the event this information is protected by the Federal Confidentiality of Alcohol and Drug AbusePatient Records regulations: The Federal rules restrict any use of the information to criminally investigate or prosecute any alcohol or drug abuse patient.[facility] Encounter Details Date Type Department Care Team (Late st Contact Info) Description 03/28/2024 Patient Msg Otolaryngology [address] [place] [phone] Adrian Giang, Research Coordinator Invitation to participate in research Social History Tobacco Use Types Packs/Day Years [...] is lower risk 8 04/10/2023 Data from: https://www.neighborhoodatlas.medicine.[facility]/. Last address used for calculation [address] [...] Assessment Author Yes 09/15/2014 12:58 PM Penny Maritnez MA documented as of this encounter Mental [...] EDT Office Visit [facility] [address] [place] [address] 3 week follow up lab CHEMOTX CARBO/TAXOL/KEYTRUD A 01/04/2025 10:00 AM EDT Visit (SP) Office Hematology/Oncology [address] [place] [address] Nicholas Gracia MD [address] [place] [address] 3 week follow up lab CHEMOTX CARBO/TAXOL/KEYTRUD A 01/04/2025 10:[address] [facility] Hematology/Oncology [address] [place] [address] [place] [address] 3 week follow up lab CHEMOTX CARBO/TAXOL/KEYTRUD A 02/22/2025 11:30 AM EDT Office Visit Palliative Medicine [address] [place] [address] [place] [address] Dianne Keller, TELEVISION SCHEDULE COORDINATOR.OIL SPRAYING MACHINE OPERATOR [address] [place] [address] 3 month follow up documented as of this encounter Visit Diagnoses Not on filedocumented in this encounter Care Teams Res Habilitation Assistant Relationship Specialty Start Date End Date Gerson Gonzalez Jr., DO [facility] [place] [phone] PCP - General 08/24/01 Gerson Gonzalez Jr., DO [address] [facility] [place] [address] Referring Internal Medicine 07/06/24 Ghislaine Thakur RN [address] [place] [address] Specialty Anesthesia Director Hematology/Oncology 08/31/24 Nicholas Gracia MD [address] [place] [address] Physician Hematology/Oncology 08/31/24 Dianne Keller APRN.OIL SPRAYING MACHINE OPERATOR [address] [place] [phone] Hospice & Palliative Medicine 08/31/24 Jazmyne Bryson, RN Specialty Anesthesia Director Hospice & Palliative Medicine 08/31/24 Danielle Castellon LSW High Man 09/29/24 documented as of this encounter
--- OUTSIDE RECORDS SUMMARY | 2024-12-22 08:49 | XMS_ITS | Encounter Summary ---
Author Organization [facility] Address [address] [place] [address] Care Team Providers Care Animal Trainer Name Role Phone Lisa Carson DO, Charles Lewis Primary Care Provi heladio Lisa Carson DO, Charles Lewis Unavailable [phone] Ghislaine Thakur RN Unavailable [phone] Nicholas Gracia MD Unavailable [phone] Dianne Keller APRN.JOB PLACEMENT SPECIALIST Unavailable + Jazmyne Bryson RN Unavailable Unavail able Danielle Castellon Unavailable Unavailable Source Comments In the event this information is protected by the Federal Confidentiality of Alcohol and Drug AbusePatient Records regulations: The Federal rules restrict any use of the information to criminally investigate or prosecute any alcohol or drug abuse patient.[facility] Encounter Details Date Type Department Care Team (Late st Contact Info) Description 03/09/2024 Get Medical Advice Facial Plastics/Reconstruction [address] [place] [address] Stephane Balbuena MD [address] [place], [place] [address] [address] Botox Social History Tobacco Use Types Packs/Day Years [...] is lower risk 8 04/10/2023 Data from: https://www.neighborhoodatlas.medicine.[facility].edu/. Last address used for calculation [address] [...] Office Visit [facility] [address] [place] [address] [place] [address] 3 week follow up lab CHEMOTX CARBO/TAXOL/KEYTRUD A 01/04/2025 10:00 AM EDT Visit (SP) Office Hematology/Oncology [address] [place] [address] [place] [address] Nicholas Gracia MD [address] [place] [address] [place] [address] 3 week follow up lab CHEMOTX CARBO/TAXOL/KEYTRUD A 01/04/2025 10:30 AM EDT [facility] Hematology/Oncology [address] [place] [address] [place] [address] 3 week follow up lab CHEMOTX CARBO/TAXOL/KEYTRUD A 02/22/2025 11:30 AM EDT Office Visit Palliative Medicine [address] [place] [address] [place] [address] Dianne Keller, SURESH.JOB PLACEMENT SPECIALIST [address] [place] [address] 3 month follow up documented as of this encounter Visit Diagnoses Not on filedocumented in this encounter Care Teams Animal Trainer Relationship Specialty Start Date End Date Gerson Gonzalez Jr., DO [address] [facility] [place] [phone] PCP - General 08/24/01 Gerson Gonzalez Jr., DO [address] [facility] [place] [address] Referring Internal Medicine 07/06/24 Ghislaine Thakur RN [address] [place] [address] [place] [address] Specialty Asp Net Software Developer Hematology/Oncology 08/31/24 Nicholas Gracia MD [address] [place] [address] [place] [address] Physician Hematology/Oncology 08/31/24 Dianne Keller APRN.JOB PLACEMENT SPECIALIST [address] [place] [address] [place] [phone] Hospice & Palliative Medicine 08/31/24 Jazmyne Bryson, RN Specialty [employer] Software Developer Hospice & Palliative Medicine 08/31/24 Danielle Castellon LSW Obstetrics And Gynecology Professor 09/29/24 documented as of this encounter
--- OUTSIDE RECORDS SUMMARY | 2024-12-22 08:49 | XMS_ITS | Encounter Summary ---
Author Organization [facility] Address [address] [place] [address] Care Team Providers Care Developer Automatic Name Role Phone Lisa Carson DO, Charles Lewis Primary Care Provi heladio Lisa Carson DO, Charles Lewis Unavailable [phone] Ghislaine Thakur RN Unavailable [phone] Nicholas Gracia MD Unavailable [phone] Dianne Keller APRN.SECURITY THREAT ANALYST Unavailable + Jazmyne Bryson RN Unavailable Unavail able Danielle Castellon Unavailable Unavailable Source Comments In the event this information is protected by the Federal Confidentiality of Alcohol and Drug AbusePatient Records regulations: The Federal rules restrict any use of the information to criminally investigate or prosecute any alcohol or drug abuse patient.[facility] Encounter Details Date Type Department Care Team (Late st Contact Info) Description 10/19/2024 Patient Msg Hematology/Oncology [address] [place] [address] Nicholas Gracia MD [address] [place] [address] [place] [address] Appointment Request Social History Tobacco Use Types Packs/Day [...] is lower risk 8 04/10/2023 Data from: https://www.neighborhoodatlas.medicine.[facility].edu/. Last address used for calculation [address] [...] Telephone Encounter - Ghislaine Thakur RN - 10/19/2024 2:29 PM EDT Spoke with patient who states her side effects hit her a little harder and lasted longer than last time. Pt had numbness and tingling in her lips, hands, and feet. This has resolved now. Pt was constipated for 6 days. States she went to her PCP yesterday, they gave her one dose of linzess, and she had great relief from it. Pt states she also had fevers on the -. Pt is asking if it's possible to cut back on the dose of her chemo to see if this helps. Please advise Ghislaine Thakur RN documented in this encounter Plan of Treatment Upcoming Encounters Date Type Department Care Team (Late st Contact Info) Description 01/04/2025 9:45 AM EDT Office Visit [facility] [address] [place] [address] [place] [address] 3 week follow up lab CHEMOTX CARBO/TAXOL/KEYTRUD A 01/04/2025 10:00 AM EDT Visit (SP) Office Hematology/Oncology [address] [place] [address] [place] [address] Nicholas Gracia MD [address] [place] [address] [place] [address] 3 week follow up lab CHEMOTX CARBO/TAXOL/KEYTRUD A 01/04/2025 10:30 AM EDT [facility] Hematology/Oncology [address] [place] [address] [place] [address] 3 week follow up lab CHEMOTX CARBO/TAXOL/KEYTRUD A 02/22/2025 11:30 AM EDT Office Visit Palliative Medicine [address] [facility] [place] [address] Dianne Keller, SURVEYOR'S ASSISTANT.SECURITY THREAT ANALYST [address] [place] [address] 3 month follow up documented as of this encounter Visit Diagnoses Not on filedocumented in this encounter Care Teams Developer Automatic Relationship Specialty Start Date End Date Gerson Gonzalez Jr., DO [facility] [facility] [place] [address] PCP - General 08/24/01 Gerson Gonzalez Jr., DO [facility] [facility] [place] [address] Referring Internal Medicine 07/06/24 Ghislaine Thakur RN [address] [facility] [place] [address] Specialty Director Child Hematology/Oncology 08/31/24 Nicholas Gracia MD [address] [place] [address] [place] [address] Physician Hematology/Oncology 08/31/24 Dianne Keller, SURVEYOR'S ASSISTANT.SECURITY THREAT ANALYST [address] [facility] [place] [address] Hospice & Palliative Medicine 08/31/24 Jazmyne Bryson, RN Specialty Director Child Hospice & Palliative Medicine 08/31/24 Danielle Castellon LSW Social Work Case Manager 09/29/24 documented as of this encounter
--- OUTSIDE RECORDS SUMMARY | 2024-12-22 08:49 | XMS_ITS | Encounter Summary ---
Author Organization [facility] Address [address] [place] [address] Care Team Providers Care Radio Mechanic Helper Name Role Phone Lisa Carson DO, Charles Lewis Primary Care Provi heladio Lisa Carson DO, Charles Lewis Unavailable [phone] Ghislaine Thakur RN Unavailable [phone] Nicholas Gracia MD Unavailable [phone] Dianne Keller APRN.SPOUT LINER Unavailable + Jazmyne Bryson RN Unavailable Unavail able Danielle Castellon Unavailable Unavailable Source Comments In the event this information is protected by the Federal Confidentiality of Alcohol and Drug AbusePatient Records regulations: The Federal rules restrict any use of the information to criminally investigate or prosecute any alcohol or drug abuse patient.[facility] Encounter Details Date Type Department Care Team (Late st Contact Info) Description 12/14/2024 Orders Only Hematology/Oncology [address] [place] [address] Josie Arcos PA-C [address] [place] [address] Malignant neoplasm of overlapping sites of right lung (HCC) Social History Tobacco Use Types Packs/Day Years [...] is lower risk 8 04/10/2023 Data from: https://www.neighborhoodatlas.medicine.[facility]/. Last address used for calculation [address] [...] Description 01/04/2025 9:45 AM EDT Office Visit [facility] [address] [place] [address] [place] [address] 3 week follow up lab CHEMOTX CARBO/TAXOL/KEYTRUD A 01/04/2025 10:00 AM EDT Visit (SP) Office Hematology/Oncology [address] [place] [address] [place] [address] Nicholas Gracia MD [address] [place] [address] [place] [address] 3 week follow up lab CHEMOTX CARBO/TAXOL/KEYTRUD A 01/04/2025 10:30 AM EDT [facility] Center Hematology/Oncology [address] [place] [address] [place] [address] 3 week follow up lab CHEMOTX CARBO/TAXOL/KEYTRUD A 02/22/2025 11:30 AM EDT Office Visit Palliative Medicine [address] [place] [address] [place] [address] Dianne Keller, GAS TESTER.SPOUT LINER [address] [place] [place] [id number] 3 month follow up documented as of this encounter Visit Diagnoses Diagnosis Malignant neoplasm of overlapping sites of right lung (HCC) documented in this encounter Care Teams Radio Mechanic Helper Relationship Specialty Start Date End Date Gerson Gonzalez Jr., DO [facility] [facility] [place] [phone] PCP - General 08/24/01 Gerson Gonzalez Jr., [address] [place] [address] Referring Internal Medicine 07/06/24 Ghislaine Thakur RN [address] [place] [address] [place] [address] Specialty Automatic Trimming Sewer Hematology/Oncology 08/31/24 Nicholas Gracia MD [address] [place] [address] [place] [address] Physician Hematology/Oncology 08/31/24 Dianne Keller APRN.SPOUT LINER [address] [place] [address] [place] [address] Hospice & Palliative Medicine 08/31/24 Jazmyne Bryson RN Specialty Automatic Trimming Sewer Hospice & Palliative Medicine 08/31/24 Danielle Castellon LSW Assembler Erector 09/29/24 documented as of this encounter
--- OUTSIDE RECORDS SUMMARY | 2024-12-22 08:49 | XMS_ITS | Referral Summary ---
Author Organization [facility] Address [address] [place] [address] Care Team Providers Care Linen Room Attendant Name Role Phone Unavailable Primary Care Provider Unavailabl e Social History Tobacco Use Types Packs/Day Years Used Date Smoking Tobacco: Never Assessed Sex and Gender Information Value Date Recorded Sex Assigned at Not on file Gender Identity Not on file Sexual Orientation Not on file Plan of Treatment Not on file
--- OUTSIDE RECORDS SUMMARY | 2024-12-22 08:49 | XMS_ITS | Encounter Summary ---
Author Organization [facility] Address [address] [place] [address] Care Team Providers Care Pigment Grinder Name Role Phone Lisa Carson DO, Charles Lewis Primary Care Provi heladio Lisa Carson DO, Charles Lewis Unavailable [phone] Ghislaine Thakur RN Unavailable [phone] Nicholas Gracia MD Unavailable [phone] Dianne Keller APRN.TRUCK DRIVER INSTRUCTOR Unavailable + Jazmyne Bryson RN Unavailable Unavail able Danielle Castellon Unavailable Unavailable Source Comments In the event this information is protected by the Federal Confidentiality of Alcohol and Drug AbusePatient Records regulations: The Federal rules restrict any use of the information to criminally investigate or prosecute any alcohol or drug abuse patient.[facility] Encounter Details Date Type Department Care Team (Late st Contact Info) Description 09/14/2024 Telephone Hematology/Oncology [facility] [place] [address] Nicholas Gracia MD [address] [place] [address] Social History Tobacco Use Types Packs/Day Years Used Date Smoking Tobacco: Former Cigarettes 1.5 18 0 07/20/1981 - 07/20/1999 Smokeless Tobacco: Never Alcohol Use Standard Drinks/Week Comments No 0 (1 standard drink = 0.6 oz pur e alcohol) PHQ-2 Answer Date Recorded PHQ-2 score 3 08/24/2024 Area Deprivation Index Answer Date Mac rded National Score (1-100), lower number is lower ri sk 87 04/10/2023 State Score (1-10), lower number is lower risk 8 04/10/2023 Data from: https://www.neighborhoodatlas.medicine.[facility].edu/. Last address used for calculation [...] Penny Nath MA documented in this encounter Miscellaneous Notes * Telephone Encounter - Nicholas Gracia MD - 09/14/2024 2:28 PM EST I ordered AP mol testing now. Please get it done. Thanks * Telephone Encounter - Ghislaine Thakur RN - 09/14/2024 2:22 PM EST Called and spoke with molecular and the order was for PDL1 which has been results. There are no other tests being performed at this time. Ghislaine Thakur RN * Telephone Encounter - Nicholas Gracia MD - 09/14/2024 8:53 AM EST Do you see AP Mol results on this pt? I need AP mol results. Thanks. documented in this encounter Plan of Treatment Upcoming Encounters Date Type Department Care Team (Late st Contact Info) Description 01/04/2025 9:45 AM EDT Office Visit [facility] [address] [place] [address] [place] [address] 3 week follow up lab CHEMOTX CARBO/TAXOL/KEYTRUD A 01/04/2025 10:00 AM EDT Visit (SP) Office Hematology/Oncology [address] [place] [address] [place] [address] Nicholas Gracia MD [address] [place] [address] [place] [address] 3 week follow up lab CHEMOTX CARBO/TAXOL/KEYTRUD A 01/04/2025 10:30 AM EDT Infusion Center Hematology/Oncology [address] [place] [address] 3 week follow up lab CHEMOTX CARBO/TAXOL/KEYTRUD A 02/22/2025 11:30 AM EDT Office Visit Palliative Medicine [address] [place] [address] Dianne Keller, GUEST SERVICE MANAGER.TRUCK DRIVER INSTRUCTOR [address] [place] [id number] 3 month follow up documented as of this encounter Visit Diagnoses Not on filedocumented in this encounter Care Teams Pigment Grinder Relationship Specialty Start Date End Date Gerson Gonzalez Jr., DO [facility] [facility] [place] [place] [address] PCP - General 08/24/01 Gerson Gonzalez Jr., DO [address] [place] [address] [place] [phone] Referring Internal Medicine 07/06/24 Ghislaine Thakur RN [address] [address] [place], [place] [address] Specialty Furniture Installer Hematology/Oncology 08/31/24 Nicholas Gracia MD [address] [facility] [place] [address] Physician Hematology/Oncology 08/31/24 Dianne Keller, GUEST SERVICE MANAGER.TRUCK DRIVER INSTRUCTOR [address] [facility] [place] [address] Hospice & Palliative Medicine 08/31/24 Jazmyne Bryson, RN Specialty Furniture Installer Hospice & Palliative Medicine 08/31/24 Danielle Castellon LSW Account Services Coordinator 09/29/24 documented as of this encounter
--- OUTSIDE RECORDS SUMMARY | 2024-12-22 08:49 | XMS_ITS | Encounter Summary ---
Author Organization [facility] Address [address] [place], [place] [address] Care Team Providers Care Fast Food Services Manager Name Role Phone Lisa Carson DO, Charles Lewis Primary Care Provi heladio Lisa Carson DO, Charles Lewis Unavailable [phone] Ghislaine Thakur RN Unavailable [phone] Nicholas Gracia MD Unavailable [phone] Dianne Keller APRN.MASTER SONAR TECHNICIAN Unavailable + Jazmyne Bryson RN Unavailable Unavail able Danielle Castellon Unavailable Unavailable Source Comments In the event this information is protected by the Federal Confidentiality of Alcohol and Drug AbusePatient Records regulations: The Federal rules restrict any use of the information to criminally investigate or prosecute any alcohol or drug abuse patient.[facility] Encounter Details Date Type Department Care Team (Latest Contact Info) Description 09/12/2024 H&P External-NonCCF Provider, External, PA-C Do not enter address information under generic External Provider. Social History Tobacco Use Types Packs/Day Years [...] is lower risk 8 04/10/2023 Data from: https://www.neighborhoodatlas.medicine.[facility]/. Last address used for calculation [address] [...] Description 01/04/2025 9:45 AM EDT Office Visit [facility] [address] [place] [address] 3 week follow up lab CHEMOTX CARBO/TAXOL/KEYTRUD A 01/04/2025 10:00 AM EDT Visit (SP) Office Hematology/Oncology [address] [place] [place] [address] Nicholas Gracia MD [address] [place] [address] [place] [address] 3 week follow up lab CHEMOTX CARBO/TAXOL/KEYTRUD A 01/04/2025 10:30 AM EDT [facility] Hematology/Oncology [address] [place] [address] [place] [address] 3 week follow up lab CHEMOTX CARBO/TAXOL/KEYTRUD A 02/22/2025 11:30 AM EDT Office Visit Palliative Medicine [address] [place] [address] [place] [address] Dianne Keller, SERVICE DEVELOPER.MASTER SONAR TECHNICIAN [address] [place] [address] 3 month follow up documented as of this encounter Visit Diagnoses Not on filedocumented in this encounter Care Teams Fast Food Services Manager Relationship Specialty Start Date End Date Gerson Gonzalez Jr., DO [facility] [place] [phone] PCP - General 08/24/01 Gerson Gonzalez Jr., [facility] [place] [address] Referring Internal Medicine 07/06/24 Ghislaine Thakur RN [address] [facility] [place] [address] Specialty Business Area Manager Hematology/Oncology 08/31/24 Nicholas Gracia MD [address] [facility] [place] [address] Physician Hematology/Oncology 08/31/24 Dianne Keller APRN.MASTER SONAR TECHNICIAN [address] [facility] [place] [address] Hospice & Palliative Medicine 08/31/24 Jazmyne Bryson, RN Specialty Business Area Manager Hospice & Palliative Medicine 08/31/[address] Danielle Castellon LSW Right Of Way Manager 09/29/24 documented as of this encounter
--- OUTSIDE RECORDS SUMMARY | 2024-12-22 08:49 | XMS_ITS | Clinical Summary ---
Author Organization [facility] Address [address] [place], [place] [id number] Care Team Providers Care Chute Builder Name Role Phone Lisa Carson DO, Charles Lewis Primary Care Provi heladio Lisa Carson DO, Charles Lewis Unavailable [phone] Ghislaine Thakur RN Unavailable [phone] Nicholas Gracia MD Unavailable [phone] Dianne Keller APRN.OBIEE LEAD DEVELOPER Unavailable + Jazmyne Bryson RN Unavailable Unavail able Danielle Castellon Unavailable Unavailable Allergies Active Allergy Reactions Criticality Noted Date Comments Seasonal Allergies Itching High 01/02/2010 Medications CHOLECALCIFERO L (VITAMIN D3) 2,000 UNIT CAP Take one(1) tablet daily. 0 008 Active Magnesium Oxide-Mg Amino Acid Chelate 300 mg cap Take 300 mg by mouth daily at bedtime. Active ASCORBIC ACID (VITAMIN C ORAL) Take by mouth. Activ e vitamin b complex tab Take 1 tablet by mouth once daily. 019 Active ezetimibe (ZETIA) 10 mg tablet Take 10 mg by mouth once daily. 022 Active FLUoxetine (PROZAC) 20 mg capsule Take 20 mg by mouth once daily. Active acetaminophen (TYLENOL) 325 mg tablet Take 325 mg by mouth as needed for pain. 024 Active levothyroxine (SYNTHROID) 25 mcg tablet Take 25 mcg by mouth once daily. 023 Active naloxone 4 mg/actuation nasal spray (NARCAN) Use 1 spray in one nostril as needed for overdose. May repeat every 2 to 3 min in alternating nostrils until medical assistance is available 1 Each 1 025 Active prochlorperazi ne (COMPAZINE) 10 mg tablet Take 1 tablet by mouth every 6 hours as needed. 100 tablet 2 025 Active ondansetron (ZOFRAN) 8 mg tablet Take 1 tablet by mouth every 8 hours as needed for nausea/vomiting. 90 tablet 2 025 Active albuterol HFA (PROVENTIL HFA, VENTOLIN HFA) 90 mcg/actuation inhalerIndicat ions:Chronic obstructive pulmonary disease, unspecified COPD type (HCC),SOB (shortness of breath) Inhale 2 Puffs as instructed every 6 hours as needed for wheezing/shortnes s of breath. 1 Each 3 025 Active benzonatate (TESSALON PERLES ORAL) Take by mouth. Ac tive torsemide (DEMADEX) 20 mg tablet TAKE 1 TABLET BY MOTUH EVERY MORNING 025 Active gabapentin (NEURONTIN) 100 mg capsule TAKE 1 CAPSULE (100 MG) BY MOUTH IN THE MORNING AND BEFORE BEDTIME 025 Active primidone (MYSOLINE) 50 mg tablet Take 25-50 mg by mouth daily at bedtime. 025 2024 Active propranolol (INDERAL) 20 mg tablet as needed. 022 2024 Discontinued senna-docusate (SENNA-S) 8.6-50 mg per tablet Take 1 tablet by mouth once daily. 90 tablet 2 025 2024 iv contrast (will be provided with radiology test) MRI shoulder RT Inject, intravenously, once for 1 dose. No IV access, insert saline lock prior to the beginning of sedation, infusion, injection of imaging exam. Discontinue saline lock post exam. If Pt. has a central line or IVAD, may access for administration according to line specific nursing protocol. Once exam is complete flush line and de-access according to line specific nursing protocol in the MR contrast administration guidelines link. 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 Post-op had deficits including left hemiparesis, left facial droop, dysarthria, diplopia. 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 Anxiety state, unspecified Encounters Date Type Department Care Team Description 12/19/2024 Telephone Hematology/Oncolog y [facility] [place] [address] Ghislaine Thakur, RN Care Coordination (Thyroid nodules) 12/14/2024 10:30 AM EDT Infusion Center Hematology/[place] [address] Malignant neoplasm of overlapping sites of right lung (HCC) (Primary Dx) 12/14/2024 10:00 AM EDT Visit (SP) Office Hematology/[place] [address] Josie Arcos, PAInnaC Malignant neoplasm of overlapping sites of right lung (HCC) (Primary Dx); Metastatic cancer to bone (HCC); Malaise and fatigue; Pain of right upper arm; Swelling of arm 12/14/2024 Orders Only Hematology/[place] [address] Josie Arcos PA-C Malignant neoplasm of overlapping sites of right lung (HCC) 12/14/2024 Telephone Cancer Appts [facility] [place] [address] [place] [address] Josie Arcos PA-C Radiology US 12/14/2024 Travel 12/12/2024 Travel 11/23/2024 1:00 PM EDT Office Visit Palliative Medicine [facility] [place] [address] [address] [place] [address] Dianne Keller, ART HISTORY PROFESSOR.OBIEE LEAD DEVELOPER Palliative care by specialist (Primary Dx); Constipation due to opioid therapy; Neoplasm related pain; Metastatic cancer to bone (HCC); Lung mass 11/23/2024 10:30 AM EDT Infusion Center Hematology/Oncolog y [address] [place] [address] Malignant neoplasm of overlapping sites of right lung (HCC) (Primary Dx) 11/23/2024 10:00 AM EDT Visit (SP) Office Hematology/Oncolog y [facility] [place] [address] [place] [address] Nicholas Gracia MD Malignant neoplasm of overlapping sites of right lung (HCC) (Primary Dx) 11/23/2024 Orders Only Hematology/Oncolog y [facility] [place] [address] [place] [address] Nicholas Gracia MD Malignant neoplasm of overlapping sites of right lung (HCC) 11/23/2024 Travel 11/16/2024 Telephone Hematology/Oncolog y [facility] [place] [address] [place] [address] Nicholas Gracia MD Lab Orders 11/15/2024 7:57 AM EDT - 11/15/2024 11:59 PM EDT Hospital Encounter Radiology Pet CT [address] [place] [address] Metastatic cancer to bone (HCC) [C79.51] Discharge Disposition: Home 11/02/2024 9:30 AM EDT Infusion Center Hematology/Oncolog y [facility] [place] [address] Malignant neoplasm of overlapping sites of right lung (HCC) (Primary Dx) 11/02/2024 9:00 AM EDT Visit (SP) Office Hematology/Oncolog y [address] [place] [address] Nicholas Gracia MD Metastatic cancer to bone (HCC) (Primary Dx); Malignant neoplasm of overlapping sites of right lung (HCC) 11/02/2024 Telephone Radiation Oncology [address] [place] [address] Nicholas Gracia MD Orders 10/31/2024 Travel 10/19/2024 Patient Msg Hematology/Oncolog y [address] [place] [address] Nicholas Gracia MD Appointment Request 10/12/2024 10:00 AM EDT [facility] Center Hematology/Oncolog y [address] [place] [address] Malignant neoplasm of overlapping sites of right lung (HCC) (Primary Dx) 10/12/2024 9:30 AM EDT Visit (SP) Office Hematology/Oncolog y [address] [place] [address] Evelina Harrison, ART HISTORY PROFESSOR.OBIEE LEAD DEVELOPER Metastatic cancer to bone (HCC) (Primary Dx); Malignant neoplasm of overlapping sites of right lung (HCC); Encounter for antineoplastic chemotherapy; Encounter for immunotherapy 10/12/2024 Social Work Hematology/Oncolog y [address] [place] [address] Danielle Castellon LSW 10/12/2024 Travel 10/06/2024 Orders Only Hematology/Oncolog y [address] [place] [address] Nicholas Gracia MD 09/30/2024 Telephone Palliative Medicine [address] [place] [address] Dianne Keller, ART HISTORY PROFESSOR.OBIEE LEAD DEVELOPER Patient Update 09/29/2024 Social Work Hematology/Oncolog y [address] [place] [address] Danielle Castellon LSW 09/27/2024 Telephone Hematology/Oncolog y [address] [place] [address] Evelina Harrison APRN.OBIEE LEAD DEVELOPER Lab Orders 2024 11:00 AM EST Office Visit Palliative Medicine [address] [place] [address] [place] [address] Dianne Keller APRN.CNP Palliative care by specialist (Primary Dx); Metastatic cancer to bone (HCC); Constipation due to opioid therapy; Lung mass; Neoplasm related pain; Anorexia; Chronic obstructive pulmonary disease, unspecified COPD type (HCC); SOB (shortness of breath) 09/22/2024 10:00 AM EST Visit (SP) Office Hematology/Oncolog y [address] [place] [address] [place] [address] Evelina Harrison APRN.CNP Lung mass (Primary Dx); Metastatic cancer to bone (HCC); Malignant neoplasm of overlapping sites of right lung (HCC); Chemotherapy induced diarrhea; Chemotherapy-induced fatigue 09/22/2024 Travel 09/21/2024 Telephone Cancer Appts [address] [place] [address] Evelina Harrison APRN.CNP No Show from Last 3 Months Family History Medical History Relation Comments Coronary Artery Disease Brother Alcohol/Drug Father kidney cancer Father Ovarian cancer Maternal Aunt Breast Cancer Maternal Grandmother Arthritis Mother Cataract Mother Hypertension Mother Lipids Mother Thyroid Mother Thyroid Paternal Grandmother Arthritis Sister Hypertension Sister Lipids Sister Thyroid Sister Amblyopia No Family History Blindness No Family History Detached Retina No Family History Glaucoma No Family History Macular Degen No Family History Relation Status Comments Brother Father Maternal Aunt Maternal Grandmother Mother Alive Paternal Grandmother Sister Social History Tobacco Use Types Packs/Day Years [...] is lower risk 8 04/10/2023 Data from: https://www.neighborhoodatlas.medicine.[facility].edu/. Last address used for calculation [address] 04/10/2023 Comments No Sex and Gender Information Value Date Recorded Sex Assigned at Not on file Legal Sex Female 9:48 AM EST Gender Identity Female 12/12/2021 11:07 AM EDT Sexual Orientation Not on file Occupation Industry Job Start Date Job End Date disabled Not on file Not on file Not on file Last Filed Vital Signs [...] Mass Index 29.34 12/14/2024 9:52 AM EDT Plan of Treatment Upcoming Encounters Date Type Department Care Team (Late st Contact Info) Description 01/04/2025 9:45 AM EDT Office Visit [facility] [address] [place] [address] [place] [address] 3 week follow up lab CHEMOTX CARBO/TAXOL/KEYTRUD A 01/04/2025 10:00 AM EDT Visit (SP) Office Hematology/Oncology [address] [place] [address] [place] [address] Nicholas Gracia MD [address] [place] [address] [place] [address] 3 week follow up lab CHEMOTX CARBO/TAXOL/KEYTRUD A 01/04/2025 10:30 AM EDT [facility] Center Hematology/Oncology [address] [place] [address] [place] [address] 3 week follow up lab CHEMOTX CARBO/TAXOL/KEYTRUD A 02/22/2025 11:30 AM EDT Office Visit Palliative Medicine [address] [place] [address] [place] [address] Dianne Keller, ART HISTORY PROFESSOR.OBIEE LEAD DEVELOPER [address] [place] [address] 3 month follow up Health Maintenance Due Date Last Done Comments Cervical Cancer Screening 09/24/1967 Depression Screening 1974 Hepatitis C Screening 1974 DTaP,Tdap,Td Vaccine (1 - Tdap) 09/24/1975 Pneumococcal Vaccine: 50+ (1 of 2 - PCV) 09/24/1975 Shingrix Vaccine (1 of 2) 09/24/1975 CT Colonography 2001 Colonoscopy 2001 Fecal Occult Blood 2001 Lipid Screening 2001 Sigmoidoscopy 2001 RSV Vaccine (1 - Risk 60-74 years 1-dose series) 2016 Bone Density Screening 2021 Mammogram Screening 11/07/2022 11/07/2021, 11/07/2021, 10/27/2017, Additional history exists Covid-19 Vaccine ( - 2023-2 5 season) 2024 07/02/2021, 01/08/2021, 10/08/2020 Advance Directive Discussion 07/20/2024 Influenza Vaccine (Season Ended) 2025 Cologuard (FIT-DNA) 05/18/2027 05/18/2024, Colorectal Cancer Screening 05/18/2027 Diabetes Screening 12/15/2027 12/14/2024, 0 11/23/2024, 11/02/2024, Additional history exists Medical Devices Implanted Type Area Supervisor [place] Device Identifier Shelf Expiration Date Model / Serial / Lot Gold Eyelid Weight 1.0g - [id number] Implanted:Qty: 1 on 12/24/2009 at [facility] Implant Right: Eyelid [id number] / / Procedures Procedure Name Priority Date/Time Associated Diagnosis Comments EXTERNAL IMAGING 12/20/2024 9:00 AM EDT EXTERNAL IMAGING 12/16/2024 4:23 PM EDT MAGNESIUM BLD Routine 12/14/2024 9:49 AM EDT Malignant neoplasm of overlapping sites of right lung (HCC) COMPREHENSIVE METABOLIC PANEL Routine 12/14/2024 9:49 AM EDT Malignant neoplasm of overlapping sites of right lung (HCC) CBC + DIFF Routine 12/14/2024 9:49 AM EDT Malignant neoplasm of overlapping sites of right lung (HCC) US OUTSIDE CD DICOM IMPORT 12/14/2024 TSH BLD Routine 11/23/2024 9:39 AM EDT Lung mass Malignant neoplasm of overlapping sites of right lung (HCC) Other mixed anxiety disorders MAGNESIUM BLD Routine 11/23/2024 9:39 AM EDT Lung mass Malignant neoplasm of overlapping sites of right lung (HCC) COMPREHENSIVE METABOLIC PANEL Routine 11/23/2024 9:39 AM EDT Lung mass Malignant neoplasm of overlapping sites of right lung (HCC) CBC + DIFF Routine 11/23/2024 9:39 AM EDT Lung mass Malignant neoplasm of overlapping sites of right lung (HCC) NM PET/CT SKULL-THIGH SUBSEQUENT Routine 11/15/2024 10:13 AM EDT Metastatic cancer to bone (HCC) Malignant neoplasm of overlapping sites of right lung (HCC) GLUCOSE, BLOOD (POC) Routine 11/15/2024 8:06 AM EDT MAGNESIUM BLD Routine 11/02/2024 8:44 AM EDT 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) COMPREHENSIVE METABOLIC PANEL Routine 11/02/2024 8:44 AM EDT 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) CBC + DIFF Routine 11/02/2024 8:44 AM EDT 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) MAGNESIUM BLD Routine 10/12/2024 9:04 AM EDT Metastatic cancer to bone (HCC) Malignant neoplasm of overlapping sites of right lung (HCC) Malaise and fatigue TSH BLD Routine 10/12/2024 9:04 AM EDT Metastatic cancer to bone (HCC) Malignant neoplasm of overlapping sites of right lung (HCC) Malaise and fatigue CBC + DIFF Routine 10/12/2024 9:04 AM EDT Metastatic cancer to bone (HCC) Malignant neoplasm of overlapping sites of right lung (HCC) Malaise and fatigue COMPREHENSIVE METABOLIC PANEL Routine 10/12/2024 9:04 AM EDT Metastatic cancer to bone (HCC) Malignant neoplasm of overlapping sites of right lung (HCC) Malaise and fatigue KAPPA/MEHTA,FREE,SER Routine 09/22/2024 9 :52 AM EST Lung mass Metastatic cancer to bone (HCC) HAPTOGLOBIN BLD Routine 09/22/2024 9:52 AM EST Lung mass Metastatic cancer to bone (HCC) FOLATE SERUM Routine 09/22/2024 9:52 AM EST Lung mass Metastatic cancer to bone (HCC) VITAMIN B12 BLOOD Routine 09/22/2024 9:5 2 AM EST Lung mass Metastatic cancer to bone (HCC) IRON + TIBC Routine 09/22/2024 9:52 AM EST Lung mass Metastatic cancer to bone (HCC) FERRITIN BLD Routine 09/22/2024 9:52 AM EST Lung mass Metastatic cancer to bone (HCC) COMPREHENSIVE METABOLIC PANEL Routine 09/22/2024 9:52 AM EST Lung mass Metastatic cancer to bone (HCC) CBC + DIFF Routine 09/22/2024 9:52 AM EST Lung mass Metastatic cancer to bone (HCC) from Last 3 Months Results * EXTERNAL IMAGING (12/20/2024 9:00 AM EDT) Anatomical Region Laterality Modality Other us External Provider PA-C RADIOLOGY Final Res ult * EXTERNAL IMAGING (12/16/2024 4:23 PM EDT) Anatomical Region Laterality Modality Other us External Provider PA-C RADIOLOGY Final Res ult * (ABNORMAL) MAGNESIUM (12/14/2024 9:49 AM EDT) Only the most recent of4 resultswithin the time period is included. Pathologist [facility] Magnesium 1.5(L) 1.7 - 2.3 mg/dL 12/14/2024 10:17 AM EDT [facility] Blood BLOOD SPECIMEN / Unknown Venipuncture / Unknown 12/14/2024 9:49 AM EDT 12/14/2024 9:49 AM EDT Nicholas Gracia MD LABORATORY Final Res ult [facility] [address] [place] [address] * (ABNORMAL) COMPREHENSIVE METABOLIC PANEL (12/14/2024 9:49 AM EDT) Only the most recent of5 resultswithin the time period is included. Protein, Total 6.1(L) 6.3 - 8.0 g/dL 12/14/2024 10:21 AM EDT [facility] Albumin 4.1 3.9 - 4.9 g/dL 12/14/2024 10:21 AM EDT [facility] Calcium, Total 9.2 8.5 - 10.2 mg/dL 12/14/2024 10:21 AM EDT [facility] Bilirubin, Total 0.2 0.2 - 1.3 mg/dL 12/14/2024 10:21 AM [facility] Alkaline Phosphatase 85 34 - 123 U/L 12/14/2024 10:21 AM [facility] AST 11(L) 13 - 35 U/L 12/14/2024 10:21 AM [facility] ALT 12 7 - 38 U/L 12/14/2024 10:21 AM [facility] Glucose 105(H) 74 - 99 mg/dL 12/14/2024 10:21 AM [facility] Comment: The [place] Diabetes Association (ADA) provides guidance for cutoff values for fasting glucose and random glucose. The ADA defines fasting as no caloric intake for at least 8 hours. Fasting plasma glucose results between 100 to 125 mg/dL indicate increased risk for diabetes (prediabetes). Fasting plasma glucose results greater than or equal to 126 mg/dL meet the criteria for diagnosis of diabetes. In the absence of unequivocal hyperglycemia, results should be confirmed by repeat testing. In a patient with classic symptoms of hyperglycemia or hyperglycemic crisis, random plasma glucose results greater than or equal to 200 mg/dL meet the criteria for diagnosis of diabetes. Reference: Standards of Medical Care in Diabetes 2016, [place] [employer] Association. Diabetes Care. 2016.39(Suppl 1). BUN 15 7 - 21 mg/dL 12/14/2024 10:21 AM [facility] Creatinine 0.49(L) 0.58 - 0.96 mg/dL 12/14/2024 10:21 AM [facility] Sodium 143 136 - 144 mmol/L 12/14/2024 10:21 AM [facility] Potassium 3.9 3.7 - 5.1 mmol/L 12/14/2024 10:21 AM [facility] Chloride 105 98 - 107 mmol/L 12/14/2024 10:21 AM [facility] CO2 26 22 - 30 mmol/L 12/14/2024 10:21 AM [facility] Anion Gap 12 8 - 15 mmol/L 12/14/2024 10:21 AM EDT [facility] Estimated Glomerular Filtration Rate 103 >=60 mL/min/1. 73m 12/14/2024 10:21 AM EDT [facility] Comment:Estimated Glomerular Filtration Rate (eGFR) is calculated using the 2020 CKD-EPI creatinine equation. This equation utilizes serum creatinine, sex, and age as parameters. The creatinine assay has traceable calibration to isotope dilution- mass spectrometry. Refer to KDIGO guidelines for clinical interpretation. In patients with unstable renal function, e.g. those with acute kidney injury, the eGFR may not accurately reflect actual GFR. Blood BLOOD SPECIMEN / Unknown Venipuncture / Unknown 12/14/2024 9:49 AM EDT 12/14/2024 9:49 AM EDT us Nicholas Gracia MD LABORATORY Final Res ult [facility] [address] [place] [id number] * (ABNORMAL) COMPLETE BLOOD COUNT AND DIFFERENTIAL (12/14/2024 9:49 AM EDT) Only the most recent of5 resultswithin the time period is included. WBC 3.17(L) 3.70 - 11.00 k/uL 12/14/2024 9:54 AM EDT [facility] RBC 3.47(L) 3.90 - 5.20 m/uL 12/14/2024 9:54 AM EDT [facility] Hemoglobin 11.5 11.5 - 15.5 g/dL 12/14/2024 9:54 AM EDT [facility] Hematocrit 35.0(L) 36.0 - 46.0 % 12/14/2024 9:54 AM EDT [facility] MCV 100.9(H) 80.0 - 100.0 fL 12/14/2024 9:54 AM EDT [facility] MCH 33.1 26.0 - 34.0 pg 12/14[facility]24 [facility] MCHC 32.9 30.5 - 36.0 g/dL 12/14/2024 9:54 AM EDT [facility] RDW-CV 17.6(H) 11.5 - 15.0 % 12/14/2024 9:54 AM EDT [facility] Platelet Count 188 150 - 400 k/uL 12/14/2024 9:54 AM EDT [facility] MPV 9.0 9.0 - 12.7 fL 12/14/2024 9:54 AM EDT [facility] Neutrophils % 61.9 % 12/14/2024 9:54 AM EDT [facility] Abs Neut 1.96 1.45 - 7.50 k/uL 12/14/2024 9:54 AM EDT [facility] Lymphocytes % 24.9 % 12/14/2024 9:54 AM EDT [facility] Abs Lymph 0.79(L) 1.00 - 4.00 k/uL 12/14/2024 9:54 AM EDT [facility] Monocytes % 11.7 % 12/14/2024 9:54 AM EDT [facility] Abs [place] 0.37 <0.87 k/uL 12/14/2024 9:54 AM EDT [facility] Eosinophils % 0.9 % 12/14/2024 9:54 AM EDT [facility] Abs Eosin 0.03 <0.46 k/uL 12/14/2024 9:54 AM EDT [facility] Basophils % 0.6 % 12/14/2024 9:54 AM EDT [facility] Abs Baso <0.03 <0.11 k/uL 12/14/2024 9:54 AM EDT [facility] Immature Granulocytes % 0.0 % 12/14/2024 9:54 AM EDT [facility] Abs Immature Gran <0.03 <0.10 k/uL 12/14/2024 9:54 AM EDT [facility] NRBC 0.0 /100 WBC 12/14/2024 9:54 AM EDT [facility] Absolute nRBC <0.01 <0.01 k/uL 12/14/2024 9:54 AM EDT [facility] Diff Type Auto 12/14/2024 9:54 AM EDT [facility] Blood BLOOD SPECIMEN / Unknown Venipuncture / Unknown 12/14/2024 9:49 AM EDT 12/14/2024 9:49 AM EDT us Nicholas Gracia MD LABORATORY Final Res ult [facility] [address] [place] [address] * US-US VENOUS DOPPLER UE RT IMPORT (12/14/2024) Anatomical Region Laterality Modality Other 12/14/2024 Narrative 12/15/2024 5:00 PM EDT Images were obtained outside of [facility] Procedure Note Provider, [facility] - 12/15/2024 Images were obtained outside of [facility] us [facility] Provider RADIOLOGY Final Result * THYROID STIMULATING HORMONE (11/23/2024 9:39 AM EDT) Only the most recent of2 resultswithin the time period is included. TSH 2.680 0.270 - 4.200 mIU/L 11/24/2024 1:07 AM EDT [facility] Blood BLOOD SPECIMEN / Unknown Venipuncture / Unknown 11/23/2024 9:39 AM EDT 11/23/2024 9:39 AM EDT us Nicholas Gracia MD LABORATORY Final Res ult [facility] [address] [facility] [facility] [address] [address] [place] [address], [place] * NM PET/CT SKULL-THIGH SUBSEQUENT (11/15/2024 10:13 AM EDT) Anatomical Region Laterality Modality Nuclear Medicine , Nuclear Medicine 11/15/2024 10:1 3 AM EDT Addenda Addendum by Provider, [facility] [place] on 11/15/2024 4:39 PM EDT * * *Final Report* * * * * * SEE BOTTOM OF REPORT FOR ADDENDED TEXT * * * DATE OF EXAM: Nov 15 2024 10:13AM NRN [id number] - NM PET/CT SKULL-THIGH SUBQ / PROCEDURE REASON: multiple diagnoses * * * * Physician Interpretation * * * * RESULT: * * * * * * * * ORIGINAL REPORT * * * * * * * * EXAMINATION: BODY FDG PET-CT CLINICAL HISTORY: History of metastatic LEFT lung cancer EXAM CATEGORY: Initial treatment strategy. TECHNIQUE: Radiopharmaceutical was administered intravenously followed by PET imaging from the eyes to thighs. Free breathing, low dose CT of the same body region was acquired without IV contrast for attenuation correction and anatomic localization. Unenhanced imaging is limited for the evaluation of some pathology and the acquired CT was not designed to produce diagnostic CT scan quality. Physiologic/non-pathologic uptake in some body regions could confound or obscure some pathology. * CT Dose-Length Product (DLP): 286 mGy*cm * CT Dose Reduction Employed: Yes * Blood glucose: 104 mg/dL * Injection site: Right Forearm-Antecubital * Injected activity: 10.8 mCi * Uptake Time: 59 minutes * Radiopharmaceutical: [id number] (FDG) COMPARISON: No previous FDG PET/CT available CORRELATION: CT dated 09/19/2024 RESULT: REFERENCES: FDG uptake is used as a surrogate marker for glucose metabolism. All reported standardized uptake values represent maximum SUV (SUVmax) per body weight, unless otherwise specified. SUV reference values, as follows: * Blood Pool (Descending Aorta): SUVmax 2.1 * Background Liver: SUVmax 2.8; SUVmean 1.9 Localizer Images: No additional findings. HEAD AND NECK: Head: No radiotracer avid lesion or mass effect in the imaged intracranial compartment. Aerodigestive Tract: No radiotracer avid lesion. Lymph Nodes: Interval development of metabolically active RIGHT level Va subcentimeter lymph node with SUV max of 16.5. Neck Soft Tissues: Enlarged bilateral thyroid lobes with heterogenous metabolic activity SUV max 6.9, correlate with thyroid ultrasound. CHEST: Lungs & Pleura: The LEFT upper lobe mass is showing abnormal increased metabolic activity SUV max of 10.6 consistent with known malignancy the masses measures approximately 4 x 3.4 cm. No pleural effusion. Lymph Nodes: Metabolically active LEFT bronchopulmonary lymph node SUV max of 4.9. Mediastinum: No radiotracer avid mass. Cardiovascular: Blood pool activity. No pericardial effusion. Chest Wall: No radiotracer avid soft tissue lesion. ABDOMEN AND PELVIS: Hepatobiliary: No radiotracer avid lesion. Spleen: No radiotracer avid lesion. No splenomegaly. Pancreas: No radiotracer avid lesion. Adrenals: No radiotracer avid nodule. Urinary Tract: Physiologic radiotracer excretion in the renal collecting systems and urinary bladder. GI Tract: No radiotracer avid lesion. No bowel dilation. Peritoneum: No radiotracer avid lesion. No ascites. Lymph Nodes: No radiotracer avid lymphadenopathy. Vasculature: Blood pool activity. Pelvic Organs: No radiotracer avid lesion. MUSCULOSKELETAL: Bones: Metabolically active large RIGHT iliac wing lytic lesion with soft tissue component SUV max of 3.0, metabolically active RIGHT adrenal lesion with SUV max of 3.4 consistent with known metastasis. Diffusely increased uptake in the axial and proximal appendicular skeleton likely related to treatment response. Soft Tissues: No radiotracer avid lesion. IMPRESSION: PRIMARY DISEASE SITE: * The LEFT upper lobe mass is showing abnormal increased metabolic activity consistent with known malignancy. RIO DISEASE: * Multiple metabolically active regional lymphadenopathy. METASTATIC DISEASE: * Innumerable metabolically active osseous metastases. Metabolically active RIGHT lower cervical lymph node. * Diffuse increased uptake in the bone marrow throughout the axial and proximal appendicular skeleton make it harder to evaluate for other osseous metastasis. ADDITIONAL FINDINGS: * Enlarged bilateral thyroid lobes with heterogenous metabolic activity, correlate with thyroid ultrasound * * * * * * * * ADDENDUM #1 * * * * * * * * ADDENDUM: Reason for the addendum is correction of dictation error. CORRECTED IMPRESSION: PRIMARY DISEASE SITE: * The LEFT upper lobe mass is showing abnormal increased metabolic activity consistent with known malignancy. RIO DISEASE: * Multiple metabolically active regional lymphadenopathy. METASTATIC DISEASE: * Metabolically active osseous metastases. Metabolically active RIGHT lower cervical lymph node. * Diffuse increased uptake in the bone marrow throughout the axial and proximal appendicular skeleton make it harder to evaluate for other osseous metastasis. ADDITIONAL FINDINGS: * Enlarged bilateral thyroid lobes with heterogenous metabolic activity, correlate with thyroid ultrasound Transcribe Date/Time: Nov 15 2024 4:35P Dictated by: MOODY NDIAYE MD This examination was interpreted and the report reviewed and electronically signed by: MOODY NDIAYE MD on Nov 15 2024 11:27AM EST This document has been addended by: MOODY NDIAYE MD on Nov 15 2024 4:37PM EST Thank you for allowing us to participate in the care of your patient. Should there be any questions regarding this interpretation, please call [phone]. If you are unable to reach us at the number above, please feel free to contact [facility] eRadiology at [phone]. us Nicholas Gracia MD NM-PAMA Edited Re sult - Final * (ABNORMAL) GLUCOSE, BLOOD (POC) (11/15/2024 8:06 AM EDT) [facility] Glucose, Point of Care 106(A) 74 - 99 mg/dL [facility] Comment: Location:[facility], [address] [place] [address] , [place], [place], [facility] The Accu-Chek Inform II glucose meter has not been approved for testing on patients receiving intensive medical intervention or therapy and results from this point of care glucose test should not be used for patient management decisions in these cases. Inaccurate results may also occur from other interfering factors, such as N-acetylcysteine (blood concentrations of greater than 5mg/dL), galactose, extremes of hematocrit (<10 or >65), or high doses of ascorbic acid (vitamin C) greater than 3mg/dL. Consider alternate testing mechanisms (e.g. core lab, blood gas instrument) in the above situations. 11/15/2024 8:0 6 AM EDT us Ccf Provider POC TESTING Final Result [facility] POINT OF CARE [facility] [address] [place] [address] Dr. [place], [place] * KAPPA/MEHTA,FREE,SER (09/22/2024 9:52 AM EST) Vandiver Free, Serum 18.0 3.3 - 19.4 mg/L 2024 2:17 PM EST [facility] Comment: Rarely, increased serum free light chains levels may not be detected or accurately quantified due to prozone phenomenon or in high viscosity samples using this immunoturbidimetric assay. Correlation with other laboratory results and clinical findings is recommended. The Vandiver Free Light Chain was performed using the Binding Site Optilite immunoturbidimetric method. Result obtained with different assay methods or kits cannot be used interchangeably. Lambda Free, Serum 15.6 5.7 - 26.3 mg/L 2024 2:17 PM EST [facility] Comment: Rarely, increased serum free light chains levels may not be detected or accurately quantified due to prozone phenomenon or in high viscosity samples using this immunoturbidimetric assay. Correlation with other laboratory results and clinical findings is recommended. The Lambda Free Light Chain was performed using the Binding Site Optilite immunoturbidimetric method. Result obtained with different assay methods or kits cannot be used interchangeably. K/L Ratio, Serum 1.15 0.26 - 1.65 2024 2:17 PM EST [facility] Blood BLOOD SPECIMEN / Unknown Venipuncture / Unknown 09/22/2024 9:52 AM EST 09/22/2024 9:52 AM EST us Nicholas Gracia MD LABORATORY Final Res ult [facility] [address] [facility] Desk [address] [address], * (ABNORMAL) VITAMIN B12 (09/22/2024 9:52 AM EST) Vitamin B12 >2,000(H) 232 - 1,245 pg/mL 09/22/2024 7:14 PM EST [facility] Blood BLOOD SPECIMEN / Unknown Venipuncture / Unknown 09/22/2024 9:52 AM EST 09/22/2024 9:52 AM EST us Nicholas Gracia MD LABORATORY Final Res ult [facility] [address] [id number], [place] * (ABNORMAL) IRON AND TIBC (09/22/2024 9:52 AM EST) Iron 26(L) 41 - 186 ug/dL 09/22/2024 6:43 PM EST [facility] TIBC 207(L) 232 - 386 ug/dL 09/22/2024 6:43 PM EST [facility] Transferrin Saturation 12.6(L) 15.0 - 57.0 % 09/22/2024 6:43 PM EST [facility] Blood BLOOD SPECIMEN / Unknown Venipuncture / Unknown 09/22/2024 9:52 AM EST 09/22/2024 9:52 AM EST us Nicholas Gracia MD LABORATORY Final Res ult Performing Organization Address City/[facility]/ZIP Co de Phone Number [facility] [address] [id number], [place] * (ABNORMAL) HAPTOGLOBIN (09/22/2024 9:52 AM EST) Haptoglobin 547(H) 31 - 238 mg/dL 09/22/2024 6:54 PM EST [facility] Blood BLOOD SPECIMEN / Unknown Venipuncture / Unknown 09/22/2024 9:52 AM EST 09/22/2024 9:52 AM EST us Nicholas Gracia MD LABORATORY Final Res ult Performing Organization Address City/[facility]/ZIP Co de Phone Number [facility] [address] [id number], [place] * FOLATE, SERUM (09/22/2024 9:52 AM EST) Folate 12.3 >4.7 ng/mL 09/22/2024 7:14 PM EST [facility] Blood BLOOD SPECIMEN / Unknown Venipuncture / Unknown 09/22/2024 9:52 AM EST 09/22/2024 9:52 AM EST us Nicholas Gracia MD LABORATORY Final Res ult Performing Organization Address City/[facility]/ZIP Co de Phone Number [facility] [address] [place] [address], * (ABNORMAL) FERRITIN (09/22/2024 9:52 AM EST) Ferritin 3,857.0(H) 14.7 - 205.1 ng/mL 09/22/2024 7:31 PM EST [facility] Blood BLOOD SPECIMEN / Unknown Venipuncture / Unknown 09/22/2024 9:52 AM EST 09/22/2024 9:52 AM EST us Nicholas Gracia MD LABORATORY Final Res ult Performing Organization Address City/[facility] Co de Phone Number [facility] [address] [place] [address], from Last 3 Months Insurance MEDICARE MEDICARE SUPPLEMENT DENTAL Advance Directives Documents on File Type Date Recorded Patient Precision Filer Hand 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 Advance Directive(s) 12/12/2009 8:53 PM Care Teams Chute Builder Relationship Specialty Start Date End Date Gerson Gonzalez Jr., DO [facility] [place] [phone] PCP - General 08/24/01 Gerson Gonzalez Jr., DO [address] [place] [phone] Referring Internal Medicine 07/06/24 Ghislaine Thakur RN [address] [place] [address] [place] [address] Specialty Roof Designer Hematology/Oncology 08/31/24 Nicholas Gracia MD [address] [place] [address] Physician Hematology/Oncology 08/31/24 Dianne Keller APRN.[facility] [address] [place] [phone] Hospice & Palliative Medicine 08/31/24 Jazmyne Bryson, RN Specialty Roof Designer Hospice & Palliative Medicine 08/31/24 Danielle Castellon LSW Factory Manager 09/29/24
--- OUTSIDE RECORDS SUMMARY | 2024-12-22 08:49 | XMS_ITS | Encounter Summary ---
Author Organization [facility] Address [address] [place], [place] [id number] Care Team Providers Care Child Protective Investigator Name Role Phone Lisa Carson DO, Charles Lewis Primary Care Provi heladio Lisa Carson DO, Charles Lewis Unavailable [phone] Ghislaine Thakur RN Unavailable [phone] Nicholas Gracia MD Unavailable [phone] Dianne Keller APRN.STRATEGIC SOURCING CONSULTANT Unavailable + Jazmyne Bryson RN Unavailable Unavail able Danielle Castellon Unavailable Unavailable Source Comments In the event this information is protected by the Federal Confidentiality of Alcohol and Drug AbusePatient Records regulations: The Federal rules restrict any use of the information to criminally investigate or prosecute any alcohol or drug abuse patient.[facility] Encounter Details Date Type Department Care Team (Latest Contact Info) Description 09/09/2024 H&P External-NonCCF Provider, External, PA-C Do not [...] is lower risk 8 04/10/2023 Data from: https://www.neighborhoodatlas.medicine.[facility]/. Last address used [...] 01/04/2025 9:45 AM EDT Office Visit [facility] Laboratory [address] [place] [address] 3 week follow up lab CHEMOTX CARBO/TAXOL/KEYTRUD A 01/04/2025 10:00 AM EDT Visit (SP) Office Hematology/Oncology [address] [place] [address] Nicholas Gracia MD [address] [place] [address] [place] [address] 3 week follow up lab CHEMOTX CARBO/TAXOL/KEYTRUD A 01/04/2025 10:30 AM EDT [facility] Hematology/Oncology [address] [place] [address] [place] [address] 3 week follow up lab CHEMOTX CARBO/TAXOL/KEYTRUD A 02/22/2025 11:30 AM EDT Office Visit Palliative Medicine [address] [place] [address] [place] [address] Dianne Keller, SENIOR STAFF SPECIALIZED EMPLOYMENT.STRATEGIC SOURCING CONSULTANT [address] [place] [address] 3 month follow up documented as of this encounter Visit Diagnoses Not on filedocumented in this encounter Care Teams Child Protective Investigator Relationship Specialty Start Date End Date Gerson Gonzalez Jr., DO [facility] [place] [phone] PCP - General 08/24/01 Gerson Gonzalez Jr., [facility] [place] [address] Referring Internal Medicine 07/06/24 Ghislaine Thakur RN [address] [place] [address] Specialty Commercial Portfolio Manager Hematology/Oncology 08/31/24 Nicholas Gracia MD [address] [place] [address] Physician Hematology/Oncology 08/31/24 Dianne Keller APRN.STRATEGIC SOURCING CONSULTANT [address] [place] [address] Hospice & Palliative Medicine 08/31/24 Jazmyne Bryson, RN Specialty Commercial Portfolio Manager Hospice & Palliative Medicine 08/31/24 Danielle Castellon LSW Friend Of The Court 09/29/24 documented as of this encounter
--- OUTSIDE RECORDS SUMMARY | 2024-12-22 08:49 | XMS_ITS | Encounter Summary ---
Author Organization [facility] Address [address] [facility] [place] [address] Care Team Providers Care Sales And Marketing Analyst Name Role Phone Gerson Gonzalez MD Primary Care Provider [phone] Shasta Flood Unavailable Encounter Details Date Type Department Care Team (Late st Contact Info) Description 04/20/2023 Abstract [facility] [address] [facility] [address] [place] [address] David Moran PA [address] [facility] [address] [place] [address] Social History Tobacco Use Types Packs/Day Years [...] suspected to have Coronavirus/COVID-19? No / Unsure 04/19/2023 5:53 PM EDT documented as of this encounter Plan of Treatment Not on file documented as of this encounter Visit Diagnoses Not on filedocumented in this encounter Care Teams Sales And Marketing Analyst Relationship Specialty Start Date End Date Gerson Gonzalez MD [facility]3 [place] [address] PCP - General Internal Medicine 01/07/23 Shasta Flood PA [address] [place] [address] Physician Speech Language Pathologist Travel Neurology 10/10/24 documented as of this encounter
--- OUTSIDE RECORDS SUMMARY | 2024-12-22 08:49 | XMS_ITS | Encounter Summary ---
Author Organization [facility] Address [address] [place], [place] [address] Care Team Providers Care Cuff Setter Lockstitch Name Role Phone Lisa Carson DO, Charles Lewis Primary Care Provi heladio Lisa Carson DO, Charles Lewis Unavailable [phone] Ghislaine Thakur RN Unavailable [phone] Nicholas Gracia MD Unavailable [phone] Dianne Keller APRN.ESCAPE WHEEL TOOTH CUTTER Unavailable + Jazmyne Bryson RN Unavailable Unavail able Danielle Castellon Unavailable Unavailable Source Comments In the event this information is protected by the Federal Confidentiality of Alcohol and Drug AbusePatient Records regulations: The Federal rules restrict any use of the information to criminally investigate or prosecute any alcohol or drug abuse patient.[facility] Reason for Visit * Reason Comments Radiology US Encounter Details Date Type Department Care Team (Late st Contact Info) Description 12/14/2024 Telephone [place] [address] Josie Arcos, [place] [address] [place] [address] Radiology US Social History Tobacco Use Types Packs/Day Years [...] is lower risk 8 04/10/2023 Data from: https://www.neighborhoodatlas.medicine.[facility].edu/. Last address used for calculation [...] Telephone Encounter - Ghislaine Thakur RN - 12/15/2024 2:53 PM EDT Call received from Vicki at [facility] who states pt's ultrasound was negative for DVT. She has faxed overresults and images were pushed through Ghislaine Thakur RN * Telephone Encounter - Ghislaine Thakur RN - 12/15/2024 1:53 PM EDT Call placed to [facility] and message left on their voicemail to call our office as soon aspossible with a verbal read. Ghislaine Thakur RN * Telephone Encounter - Ann Hood - 12/15/2024 9:11 AM EDT No results yet. * Telephone Encounter - Josie Arcos PA-C - 12/15/2024 9:05 AM EDT Can we get these results please? Josie * Telephone Encounter - Wanda Ogden - 12/14/2024 10:58 AM EDT Patient will be having STAT US done today @ [facility]. They are going to work in patient when she gets there after treatment today. Radiology will hold patient and call if results are positive. Wanda Ogden documented in this encounter Plan of Treatment Upcoming Encounters Date Type Department Care Team (Late st Contact Info) Description 01/04/2025 9:45 AM EDT Office Visit [facility] Laboratory [address] [place] [address] 3 week follow up lab CHEMOTX CARBO/TAXOL/KEYTRUD A 01/04/2025 10:00 AM EDT Visit (SP) Office Hematology/Oncology [address] [place] [address] Nicholas Gracia MD [address] [place] [address] 3 week follow up lab CHEMOTX CARBO/TAXOL/KEYTRUD A 01/04/2025 10:30 AM EDT [facility] Hematology/Oncology [address] [place] [address] [place] [address] 3 week follow up lab CHEMOTX CARBO/TAXOL/KEYTRUD A 02/22/2025 11:30 AM EDT Office Visit Palliative Medicine [address] [place] [address] [place] [address] Dianne Keller, DATABASE MANAGER.ESCAPE WHEEL TOOTH CUTTER [address] [place] [address] 3 month follow up documented as of this encounter Visit Diagnoses Not on filedocumented in this encounter Care Teams Cuff Setter Lockstitch Relationship Specialty Start Date End Date Gerson Gonzalez Jr., DO [address] [place] [address] PCP - General 08/24/01 Gerson Gonzalez Jr., DO [address] [facility] [address] Referring Internal Medicine 07/06/24 Ghislaine Thakur RN [address] [place] [place] [address] Specialty Recruiter Hematology/Oncology 08/31/24 Nicholas Gracia MD [address] [place] [address] Physician Hematology/Oncology 08/31/24 Dianne Keller APRN.ESCAPE WHEEL TOOTH CUTTER [address] [place] [place] [address] Hospice & Palliative Medicine 08/31/24 Jazmyne Bryson, RN Specialty Recruiter Hospice & Palliative Medicine 08/31/24 Danielle Castellon LSW Carburetor Repairer 09/29/24 documented as of this encounter
--- OUTSIDE RECORDS SUMMARY | 2024-12-22 08:49 | XMS_ITS | Encounter Summary ---
Author Organization [facility] Address [address] [place] [address] Care Team Providers Care Airline Transport Pilot Name Role Phone Lisa Carson DO, Charles Lewis Primary Care Provi heladio Lisa Carson DO, Charles Lewis Unavailable [phone] Ghislaine Thakur RN Unavailable [phone] Nicholas Gracia MD Unavailable [phone] Dianne Keller APRN.RESERVOIR ENGINEERING ADVISOR Unavailable + Jazmyne Bryson RN Unavailable Unavail able Danielle Castellon Unavailable Unavailable Source Comments In the event this information is protected by the Federal Confidentiality of Alcohol and Drug AbusePatient Records regulations: The Federal rules restrict any use of the information to criminally investigate or prosecute any alcohol or drug abuse patient.[facility] Encounter Details Date Type Department Care Team (Late st Contact Info) Description 06/03/2019 Patient Msg Ophthalmology [address] [facility] [place], [place] [id number] Provider, Ccf RE:POST OP APPOINTMENT Social History Tobacco Use Types Packs/Day Years [...] Description 01/04/2025 9:45 AM EDT Office Visit [facility] Laboratory [address] [place] [address] [place] [address] 3 week follow up lab CHEMOTX CARBO/TAXOL/KEYTRUD A 01/04/2025 10:00 AM EDT Visit (SP) Office Hematology/Oncology [address] [place] [address] Nicholas Gracia MD [address] [place] [address] 3 week follow up lab CHEMOTX CARBO/TAXOL/KEYTRUD A 01/04/2025 10:30 AM EDT [facility] Hematology/Oncology [address] [place] [address] 3 week follow up lab CHEMOTX CARBO/TAXOL/KEYTRUD A 02/22/2025 11:30 AM EDT Office Visit Palliative Medicine [facility] [place] [address] Dianne Keller, LOAN AUDITOR.RESERVOIR ENGINEERING ADVISOR [address] [place] [address] 3 month follow up documented as of this encounter Visit Diagnoses Not on filedocumented in this encounter Care Teams Airline Transport Pilot Relationship Specialty Start Date End Date Gerson Gonzalez Jr., DO [facility] [facility] [place] [address] PCP - General 08/24/01 Gerson Gonzalez Jr., DO [facility] [facility] [place] [address] Referring Internal Medicine 07/06/24 Ghislaine Thakur RN [address] [place] [address] Specialty Collection Officer Hematology/Oncology 08/31/24 Nicholas Gracia MD [address] [place] [address] [place] [address] Physician Hematology/Oncology 08/31/24 Dianne Keller LOAN AUDITOR.RESERVOIR ENGINEERING ADVISOR [address] [place] [address] [place] [address] Hospice & Palliative Medicine 08/31/24 Jazmyne Bryson, RN Specialty Collection Officer Hospice & Palliative Medicine 08/31/24 Danielle Castellon LSW Upfitter 09/29/24 documented as of this encounter
--- OUTSIDE RECORDS SUMMARY | 2024-12-22 08:50 | XMS_ITS | Encounter Summary ---
Author Organization [facility] Address [address] [place], [place] [address] Care Team Providers Care Used Car Sales Manager Name Role Phone Lisa Carson DO, Charles Lewis Primary Care Provi heladio Lisa Carson DO, Charles Lewis Unavailable [phone] Ghislaine Thakur RN Unavailable [phone] Nicholas Gracia MD Unavailable [phone] Dianne Keller APRN.ELECTRICAL TEST TECHNICIAN Unavailable + Jazmyne Bryson RN Unavailable Unavail able Danielle Castellon Unavailable Unavailable Source Comments In the event this information is protected by the Federal Confidentiality of Alcohol and Drug AbusePatient Records regulations: The Federal rules restrict any use of the information to criminally investigate or prosecute any alcohol or drug abuse patient.[facility] Encounter Details Date Type Department Care Team (Late st Contact Info) Description 05/31/2021 Patient Msg Plastic Surgery [address] [id number] Stephane Balbuena MD [address] [place], [place] [id number] Appointment Cancellation Request Social History Tobacco Use Types Packs/Day Years Used Date Smoking Tobacco: Former Cigarettes 1.5 18 0 07/20/1981 - 07/20/1999 Smokeless Tobacco: Never Alcohol Use Standard Drinks/Week Comments No 0 (1 standard drink = 0.6 oz pur e alcohol) Area Deprivation Index Answer Date Mac rded National Score (1-100), lower number is lower ri sk Not on file 06/26/2020 State Score (1-10), lower number is lower risk N ot on file 06/26/2020 Data from: https://www.neighborhoodatlas.medicine.[facility].edu/. Last address used for calculation Not on file 06/26/2020 Comments No Sex and Gender Information Value [...] Description 01/04/2025 9:45 AM EDT Office Visit [facility] Laboratory [address] [place] [address] [place] [address] 3 week follow up lab CHEMOTX CARBO/TAXOL/KEYTRUD A 01/04/2025 10:00 AM EDT Visit (SP) Office Hematology/Oncology [address] [place] [address] [place] [address] Nicholas Gracia MD [address] [place] [address] [place] [address] 3 week follow up lab CHEMOTX CARBO/TAXOL/KEYTRUD A 01/04/2025 10:30 AM EDT [facility] Center Hematology/Oncology [address] [place] [address] [place] [address] 3 week follow up lab CHEMOTX CARBO/TAXOL/KEYTRUD A 02/22/2025 11:30 AM EDT Office Visit Palliative Medicine [address] [place] [address] [place] [address] Dianne Keller, NEWSPAPER DISTRIBUTOR SUPERVISOR.ELECTRICAL TEST TECHNICIAN [address] [place] [address] 3 month follow up documented as of this encounter Visit Diagnoses Not on filedocumented in this encounter Care Teams Used Car Sales Manager Relationship Specialty Start Date End Date Gerson Gonzalez Jr., DO [address] [facility] [place] [phone] PCP - General 08/24/01 Gerson Gonzalez Jr., DO [address] [facility] [place] [address] Referring Internal Medicine 07/06/24 Ghislaine Thakur RN [address] [facility] [place] [address] Specialty Straightedge Worker Hematology/Oncology 08/31/24 Nicholas Gracia MD [address] [facility] [place] [address] Physician Hematology/Oncology 08/31/24 Dianne Keller APRN.ELECTRICAL TEST TECHNICIAN [address] [facility] [place] [address] Hospice & Palliative Medicine 08/31/24 Jazmyne Bryson RN Specialty Straightedge Worker Hospice & Palliative Medicine 08/31/24 Danielle Castellon LSW Unix Developer 09/29/24 documented as of this encounter
--- OUTSIDE RECORDS SUMMARY | 2024-12-22 08:50 | XMS_ITS | Encounter Summary ---
Author Organization [facility] Address [address] [place] [address] Care Team Providers Care Hostel Parent Name Role Phone Lisa Carson DO, Charles Lewis Primary Care Provi heladio Lisa Carson DO, Charles Lewis Unavailable +[phone] Ghislaine Thakur RN Unavailable +[phone] Nicholas Gracia MD Unavailable [phone] Dianne Keller APRN.WATER SKI ASSEMBLER Unavailable + Jazmyne Bryson RN Unavailable Unavail able Danielle Castellon Unavailable Unavailable Source Comments In the event this information is protected by the Federal Confidentiality of Alcohol and Drug AbusePatient Records regulations: The Federal rules restrict any use of the information to criminally investigate or prosecute any alcohol or drug abuse patient.[facility] Encounter Details Date Type Department Care Team (Late st Contact Info) Description 02/25/2021 [facility] [address] [place] [address] Aguilar Monterroso MD [address] [place] [address] RE: Non-Urgent Medical Question Social History Tobacco Use Types Packs/Day [...] N ot on file 06/26/2020 Data from: https://www.neighborhoodatlas.medicine.[facility].edu/. Last address used for calculation Not [...] 01/04/2025 9:45 AM EDT Office Visit [facility] Laboratory [address] [place] [address] 3 week follow up lab CHEMOTX CARBO/TAXOL/KEYTRUD A 01/04/2025 10:00 AM EDT Visit (SP) Office Hematology/Oncology [address] [place] [address] [place] [address] Nicholas Gracia MD [address] [place] [address] 3 week follow up lab CHEMOTX CARBO/TAXOL/KEYTRUD A 01/04/2025 10:30 AM EDT [facility] Hematology/Oncology [address] [place] [address] [place] [address] 3 week follow up lab CHEMOTX CARBO/TAXOL/KEYTRUD A 02/22/2025 11:30 AM EDT Office Visit Palliative Medicine [address] [place] [address] [place] [address] Dianne Keller, PAYMENT POSTER.WATER SKI ASSEMBLER [address] [place] [address] 3 month follow up documented as of this encounter Visit Diagnoses Not on filedocumented in this encounter Care Teams Hostel Parent Relationship Specialty Start Date End Date Gerson Gonzalez Jr., DO [address] [place] [address] PCP - General 08/24/01 Gerson Gonzalez Jr., DO [address] [facility] [place] [address] Referring Internal Medicine 07/06/24 Ghislaine Thakur RN [address] [place] [address] Specialty Drug And Alcohol Counselor Hematology/Oncology 08/31/24 Nicholas Gracia MD [address] [place] [address] Physician Hematology/Oncology 08/31/24 Dianne Keller APRN.WATER SKI ASSEMBLER [address] [place] [address] [place] [address] Hospice & Palliative Medicine 08/31/24 Jazmyne Bryson, RN Specialty Drug And Alcohol Counselor Hospice & Palliative Medicine 08/31/24 Danielle Castellon LSW Ash Pit Worker 09/29/24 documented as of this encounter
--- OUTSIDE RECORDS SUMMARY | 2024-12-22 08:50 | XMS_ITS | Encounter Summary ---
Author Organization [facility] Address [address] [place], [place] [address] Care Team Providers Care Rail Car Loader Name Role Phone Lisa Carson DO, Charles Lewis Primary Care Provi heladio Lisa Carson DO, Charles Lewis Unavailable [phone] Ghislaine Thakur RN Unavailable [phone] Nicholas Gracia MD Unavailable [phone] Dianne Keller APRN.LOOKBACK COORDINATOR Unavailable + Jazmyne Bryson RN Unavailable Unavail able Danielle Castellon Unavailable Unavailable Source Comments In the event this information is protected by the Federal Confidentiality of Alcohol and Drug AbusePatient Records regulations: The Federal rules restrict any use of the information to criminally investigate or prosecute any alcohol or drug abuse patient.[facility] Reason for Visit * Reason Comments Results Encounter Details Date Type Department Care Team (Late st Contact Info) Description 08/18/2024 Telephone Orthopedics [address] [place] [address] Niya Barclay PA-C [address] [place] [address] Results Social History Tobacco Use Types Packs/Day Years Used Date Smoking Tobacco: Former Cigarettes 1.5 18 0 07/20/1981 - 07/20/1999 Smokeless Tobacco: Never Alcohol Use Standard Drinks/Week Comments No 0 (1 standard drink = 0.6 oz pur e alcohol) PHQ-2 Answer Date Recorded PHQ-2 score 4 07/07/2024 Area Deprivation Index Answer Date Mac rded National Score (1-100), lower number is lower ri sk 87 04/10/2023 State Score (1-10), lower number is lower risk 8 04/10/2023 Data from: https://www.neighborhoodatlas.medicine.[facility].edu/. Last address used for calculation [address] [...] Office Visit [facility] Laboratory [address] [place] [address] [place] [address] 3 week follow up lab CHEMOTX CARBO/TAXOL/KEYTRUD A 01/04/2025 10:00 AM EDT Visit (SP) Office Hematology/Oncology [address] [place] [address] [place] [address] Nicholas Gracia MD [address] [place] [address] [place] [address] 3 week follow up lab CHEMOTX CARBO/TAXOL/KEYTRUD A 01/04/2025 10:30 AM EDT [facility] Hematology/Oncology [address] [place] [address] [place] [address] 3 week follow up lab CHEMOTX CARBO/TAXOL/KEYTRUD A 02/22/2025 11:30 AM EDT Office Visit Palliative Medicine [address] [place] [address] [place] [address] Dianne Keller, ROLLOFF DRIVER.LOOKBACK COORDINATOR [address] [id number] 3 month follow up documented as of this encounter Visit Diagnoses Not on filedocumented in this encounter Care Teams Rail Car Loader Relationship Specialty Start Date End Date Gerson Gonzalez Jr., DO [facility] [place] [address] PCP - General 08/24/01 Gerson Gonzalez Jr., DO [address] [place] [address] Referring Internal Medicine 07/06/24 Ghislaine Thakur RN [address] [place] [address] [place] [address] Specialty Training And Development Manager Hematology/Oncology 08/31/24 Nicholas Gracia MD [address] [place] [address] [place] [address] Physician Hematology/Oncology 08/31/24 Dianne Keller APRN.LOOKBACK COORDINATOR [address] [place] [address] [place] [address] Hospice & Palliative Medicine 08/31/24 Jazmyne Bryson RN Specialty Training And Development Manager Hospice & Palliative Medicine 08/31/24 Danielle Castellon LSW Chief Physical Therapist 09/29/24 documented as of this encounter
--- OUTSIDE RECORDS SUMMARY | 2024-12-22 08:50 | XMS_ITS | Encounter Summary ---
Author Organization [facility] Address [address] [place] [address] Care Team Providers Care Refrigerating Engineer Name Role Phone Lisa Carson DO, Charles Lewis Primary Care Provi heladio Lisa Carson DO, Charles Lewis Unavailable [phone] Ghislaine Thakur RN Unavailable [phone] Nicholas Gracia MD Unavailable [phone] Dianne Keller APRN.MIGRATORY FARM HAND Unavailable + Jazmyne Bryson RN Unavailable Unavail able Danielle Castellon Unavailable Unavailable Source Comments In the event this information is protected by the Federal Confidentiality of Alcohol and Drug AbusePatient Records regulations: The Federal rules restrict any use of the information to criminally investigate or prosecute any alcohol or drug abuse patient.[facility] Encounter Details Date Type Department Care Team (Late st Contact Info) Description 08/03/2018 Patient Msg Pediatrics [place] [address] [place], [place] [id number] Provider, Ccf Yearly Endocrinology scheduling Reminder Social History Tobacco Use Types Packs/Day Years [...] Description 01/04/2025 9:45 AM EDT Office Visit [facility] Laboratory [address] [place] [address] [place] [address] 3 week follow up lab CHEMOTX CARBO/TAXOL/KEYTRUD A 01/04/2025 10:00 AM EDT Visit (SP) Office Hematology/Oncology [address] [facility] [address] [place] [address] Nicholas Gracia MD [address] [facility] [place] [address] 3 week follow up lab CHEMOTX CARBO/TAXOL/KEYTRUD A 01/04/2025 10:30 AM EDT [facility] Hematology/Oncology [address] [place] [address] 3 week follow up lab CHEMOTX CARBO/TAXOL/KEYTRUD A 02/22/2025 11:30 AM EDT Office Visit Palliative Medicine [facility] [place] [address] Dianne Keller, METAL SPRAYER.MIGRATORY FARM HAND [address] [place] [address] 3 month follow up documented as of this encounter Visit Diagnoses Not on filedocumented in this encounter Care Teams Refrigerating Engineer Relationship Specialty Start Date End Date Gerson Gonzalez Jr., DO [facility] [facility] [place] [address] PCP - General 08/24/01 Gerson Gonzalez Jr., DO [facility] [facility] [place] [address] Referring Internal Medicine 07/06/24 Ghislaine Thakur RN [address] [facility] [place] [address] Specialty Telephone Worker Hematology/Oncology 08/31/24 Nicholas Gracia MD [address] [place] [address] [place] [address] Physician Hematology/Oncology 08/31/24 Dianne Keller METAL SPRAYER.MIGRATORY FARM HAND [address] [place] [address] [place] [address] Hospice & Palliative Medicine 08/31/24 Jazmyne Bryson, RN Specialty Telephone Worker Hospice & Palliative Medicine 08/31/24 Danielle Castellon LSW Security Patrol Officer 09/29/24 documented as of this encounter
--- OUTSIDE RECORDS SUMMARY | 2024-12-22 08:50 | XMS_ITS | Encounter Summary ---
Author Organization [facility] Address [address] [place] [address] Care Team Providers Care Jewelry Estimator Name Role Phone Lisa Carson DO, Charles Lewis Primary Care Provi heladio Lisa Carson DO, Charles Lewis Unavailable [phone] Ghislaine Thakur RN Unavailable [phone] Nicholas Gracia MD Unavailable [phone] Dianne Keller APRN.ROOF BOLTING COAL MINER Unavailable + Jazmyne Bryson RN Unavailable Unavail able Danielle Castellon Unavailable Unavailable Source Comments In the event this information is protected by the Federal Confidentiality of Alcohol and Drug AbusePatient Records regulations: The Federal rules restrict any use of the information to criminally investigate or prosecute any alcohol or drug abuse patient.[facility] Encounter Details Date Type Department Care Team (Late st Contact Info) Description 05/28/2018 Patient Msg Angio [address] [place] [address] NormaBeatrice tapia LPN pre procedure instructions 11/13 Social History Tobacco Use Types Packs/Day Years [...] EDT Office Visit [facility] [address] [place] [address] [place] [address] 3 week follow up lab CHEMOTX CARBO/TAXOL/KEYTRUD A 01/04/2025 10:00 AM EDT Visit (SP) Office Hematology/Oncology [address] [facility] [place] [address] Nicholas Gracia MD [address] [facility] [place] [address] 3 week follow up lab CHEMOTX CARBO/TAXOL/KEYTRUD A 01/04/2025 10:[address] [facility] Hematology/Oncology [address] [place] [address] 3 week follow up lab CHEMOTX CARBO/TAXOL/KEYTRUD A 02/22/2025 11:30 AM EDT Office Visit Palliative Medicine [facility] [place] [address] Dianne Keller, ALARM SIGNAL OPERATOR.ROOF BOLTING COAL MINER [address] [place] [address] 3 month follow up documented as of this encounter Visit Diagnoses Not on filedocumented in this encounter Care Teams Jewelry Estimator Relationship Specialty Start Date End Date Gerson Gonzalez Jr., DO [facility] [facility] [address] PCP - General 08/24/01 Gerson Gonzalez Jr., DO [facility] [facility] [address] Referring Internal Medicine 07/06/24 Ghislaine Thakur RN [address] [facility] [place] [address] Specialty City Mail Carrier Hematology/Oncology 08/31/24 Nicholas Gracia MD [address] [place] [address] [place] [address] Physician Hematology/Oncology 08/31/24 Dianne Keller ALARM SIGNAL OPERATOR.ROOF BOLTING COAL MINER [address] [place] [address] [place] [address] Hospice & Palliative Medicine 08/31/24 Jazmyne Bryson, RN Specialty City Mail Carrier Hospice & Palliative Medicine 08/31/24 Danielle Castellon LSW Retail Planning Manager 09/29/24 documented as of this encounter
--- OUTSIDE RECORDS SUMMARY | 2024-12-22 08:50 | XMS_ITS | Encounter Summary ---
Author Organization [facility] Address [address] [place] [address] Care Team Providers Care Mechanical Reliability Engineer Name Role Phone Lisa Carson DO, Charles Lewis Primary Care Provi heladio Lisa Carson DO, Charles Lewis Unavailable [phone] Ghislaine Thakur RN Unavailable [phone] Nicholas Gracia MD Unavailable [phone] Dianne Keller APRN.LANDING WORKER Unavailable + Jazmyne Bryson RN Unavailable Unavail able Danielle Castellon Unavailable Unavailable Source Comments In the event this information is protected by the Federal Confidentiality of Alcohol and Drug AbusePatient Records regulations: The Federal rules restrict any use of the information to criminally investigate or prosecute any alcohol or drug abuse patient.[facility] Encounter Details Date Type Department Care Team (Late st Contact Info) Description 02/22/2021 Patient Msg MRI [place] [address] [id number] Provider, Ccf Requirements for your upcoming MRI with anesthesia Social History Tobacco Use Types Packs/Day Years [...] N ot on file 06/26/2020 Data from: https://www.neighborhoodatlas.medicine.[facility]/. Last address used for calculation Not on [...] 01/04/2025 9:45 AM EDT Office Visit [facility] Laboratory [address] [address] 3 week follow up lab CHEMOTX CARBO/TAXOL/KEYTRUD A 01/04/2025 10:00 AM EDT Visit (SP) Office Hematology/Oncology [address] [facility] [address] Nicholas Gracia MD [address] [facility] [facility] [address] 3 week follow up lab CHEMOTX CARBO/TAXOL/KEYTRUD A 01/04/2025 10:30 AM EDT [facility] Hematology/Oncology [address] [place] [address] [place] [address] 3 week follow up lab CHEMOTX CARBO/TAXOL/KEYTRUD A 02/22/2025 11:30 AM EDT Office Visit Palliative Medicine [address] [place] [address] [place] [address] Dianne Keller, SUPERVISOR PASTE PLANT.LANDING WORKER [address] [id number] 3 month follow up documented as of this encounter Visit Diagnoses Not on filedocumented in this encounter Care Teams Mechanical Reliability Engineer Relationship Specialty Start Date End Date Gerson Gonzalez Jr., DO [address] [place] [address] PCP - General 08/24/01 Gerson Gonzalez Jr., DO [address] [place] [address] Referring Internal Medicine 07/06/24 Ghislaine Thakur RN [address] [facility] [address] Specialty Casey Saw Operator Hematology/Oncology 08/31/24 Nicholas Gracia MD [address] [facility] [facility] [place] [address] Physician Hematology/Oncology 08/31/24 Dianne Keller APRN.[facility] [address] [facility] [facility] [address] Hospice & Palliative Medicine 08/31/24 Jazmyne Bryson, RN Specialty Casey Saw Operator Hospice & Palliative Medicine 08/31/24 Danielle Castellon LSW Clothes Separator 09/29/24 documented as of this encounter
--- OUTSIDE RECORDS SUMMARY | 2024-12-22 08:50 | XMS_ITS | Encounter Summary ---
Author Organization [facility] Address [address] [place], [place] [id number] Care Team Providers Care Senior It Security Analyst Name Role Phone Lisa Carson DO, Charles Lewis Primary Care Provi heladio Lisa Carson DO, Charles Lewis Unavailable [phone] Ghislaine Thakur RN Unavailable [phone] Nicholas Gracia MD Unavailable [phone] Dianne Keller APRN.GEOTHERMAL OPERATIONS ENGINEER Unavailable + Jazmyne Bryson RN Unavailable Unavail able Danielle Castellon Unavailable Unavailable Source Comments In the event this information is protected by the Federal Confidentiality of Alcohol and Drug AbusePatient Records regulations: The Federal rules restrict any use of the information to criminally investigate or prosecute any alcohol or drug abuse patient.[facility] Encounter Details Date Type Department Care Team (Late st Contact Info) Description 08/17/2018 Patient Msg Plastic Surgery [address] [phone] Stephane Balbuena MD [address] [place] [address] Appointment Cancellation Request Social History Tobacco Use [...] Description 01/04/2025 9:45 AM EDT Office Visit [facility] Laboratory [address] [place] [address] [place] [address] 3 week follow up lab CHEMOTX CARBO/TAXOL/KEYTRUD A 01/04/2025 10:00 AM EDT Visit (SP) Office Hematology/Oncology [address] [facility] [place] [address] Nicholas Gracia MD [address] [place] [address] [place] [address] 3 week follow up lab CHEMOTX CARBO/TAXOL/KEYTRUD A 01/04/2025 10:30 AM EDT Infusion Center Hematology/Oncology [address] [place] [address] [place] [address] 3 week follow up lab CHEMOTX CARBO/TAXOL/KEYTRUD A 02/22/2025 11:30 AM EDT Office Visit Palliative Medicine [address] [place] [address] [place] [address] Dianne Keller, MUSEUM REGISTRAR.GEOTHERMAL OPERATIONS ENGINEER [address] [place] [address] 3 month follow up documented as of this encounter Visit Diagnoses Not on filedocumented in this encounter Care Teams Senior It Security Analyst Relationship Specialty Start Date End Date Gerson Gonzalez Jr. DO [facility]3 [place] [address] PCP - General 08/24/01 Gerson Gonzalez Jr., DO [facility]3 [place] [address] Referring Internal Medicine 07/06/24 Ghislaine Thakur, RN [address] [facility] [place] [address] Specialty Travel Counselor Automobile Club Hematology/Oncology 08/31/24 Nicholas Gracia MD [address] [place] [address] [place] [address] Physician Hematology/Oncology 08/31/24 Dianne Keller APRN.[facility] [address] [place] [address] [place] [address] Hospice & Palliative Medicine 08/31/24 Jazmyne Bryson, RN Specialty Travel Counselor Automobile Club Hospice & Palliative Medicine 08/31/24 Danielle Castellon LSW Human Services Manager 09/29/24 documented as of this encounter
--- OUTSIDE RECORDS SUMMARY | 2024-12-22 08:50 | XMS_ITS | Encounter Summary ---
Author Organization [facility] Address [address] [place], [place] [id number] Care Team Providers Care Director Facilities Maintenance Name Role Phone Lisa Carson DO, Charles Lewis Primary Care Provi heladio Lisa Carson DO, Charles Lewis Unavailable [phone] Ghislaine Thakur RN Unavailable [phone] Nicholas Gracia MD Unavailable [phone] Dianne Keller APRN.HIGH SCHOOL ENGLISH TEACHER Unavailable + Jazmyne Bryson RN Unavailable [...] Care Team (Late st Contact Info) Description 01/02/2020 Patient Msg Plastic Surgery [address] [phone] Stephane Balbuena MD [address] [place] [address] Appointment Cancellation Request Social History Tobacco Use [...] Description 01/04/2025 9:45 AM EDT Office Visit [facility] Laboratory [address] [place] [address] [place] [address] 3 week follow up lab CHEMOTX CARBO/TAXOL/KEYTRUD A 01/04/2025 10:00 AM EDT Visit (SP) Office Hematology/Oncology [address] [place] [address] Nicholas Gracia MD [address] [place] [address] [place] [address] 3 week follow up lab CHEMOTX CARBO/TAXOL/KEYTRUD A 01/04/2025 10:30 AM EDT Infusion Center Hematology/Oncology [address] [place] [address] [place] [address] 3 week follow up lab CHEMOTX CARBO/TAXOL/KEYTRUD A 02/22/2025 11:30 AM EDT Office Visit Palliative Medicine [address] [place] [address] [place] [address] Dianne Keller, MEDICAL RECORDS SPECIALIST.HIGH SCHOOL ENGLISH TEACHER [address] [place] [address] 3 month follow up documented as of this encounter Visit Diagnoses Not on filedocumented in this encounter Care Teams Director Facilities Maintenance Relationship Specialty Start Date End Date Gerson Gonzalez Jr. DO [facility]3 [place] [address] PCP - General 08/24/01 Gerson Gonzalez Jr., DO [facility] [place] [address] Referring Internal Medicine 07/06/24 Ghislaine Thakur, RN [address] [facility] [place] [address] Specialty Avionics Shop Supervisor Hematology/Oncology 08/31/24 Nicholas Gracia MD [address] [place] [address] [place] [address] Physician Hematology/Oncology 08/31/24 Dianne Keller APRN.[facility] [address] [place] [address] [place] [address] Hospice & Palliative Medicine 08/31/24 Jazmyne Bryson, RN Specialty Avionics Shop Supervisor Hospice & Palliative Medicine 08/31/24 Danielle Castellon LSW Textile Technical Officer 09/29/24 documented as of this encounter
--- OUTSIDE RECORDS SUMMARY | 2024-12-22 08:50 | XMS_ITS | Encounter Summary ---
Author Organization [facility] Address [address] [place] [address] Care Team Providers Care Meter Engineer Name Role Phone Lisa Carson DO, Charles Lewis Primary Care Provi heladio Lisa Carson DO, Charles Lewis Unavailable [phone] Ghislaine Thakur RN Unavailable [phone] Nicholas Gracia MD Unavailable [phone] Dianne Keller APRN.JUDICIAL REGISTRAR Unavailable + Jazmyne Bryson RN Unavailable Unavail able Danielle Castellon Unavailable Unavailable Source Comments In the event this information is protected by the Federal Confidentiality of Alcohol and Drug AbusePatient Records regulations: The Federal rules restrict any use of the information to criminally investigate or prosecute any alcohol or drug abuse patient.[facility] Encounter Details Date Type Department Care Team (Late st Contact Info) Description 08/26/2024 Telephone Hematology/Oncology [facility] [place] [address] Nicholas Gracia MD [address] [place] [address] Social History Tobacco Use Types Packs/Day Years [...] is lower risk 8 04/10/2023 Data from: https://www.neighborhoodatlas.medicine.[facility].edu/. Last address used for calculation [address] [...] Telephone Encounter - Nicholas Gracia MD - 08/26/2024 2:14 PM EST Please load carbo taxol keytruda in [place]. Metastatic squamous cell lung ca. Xgeva every 6 weeks I told them to get dental clearance. I am waiting for AP mol results. Thanks. documented in this encounter Plan of Treatment Upcoming Encounters Date Type Department Care Team (Late st Contact Info) Description 01/04/2025 9:45 AM EDT Office Visit [facility] [address] [place] [address] 3 week follow up lab CHEMOTX CARBO/TAXOL/KEYTRUD A 01/04/2025 10:00 AM EDT Visit (SP) Office Hematology/Oncology [address] [place] [address] [place] [address] Nicholas Gracia MD [address] [place] [address] [place] [address] 3 week follow up lab CHEMOTX CARBO/TAXOL/KEYTRUD A 01/04/2025 10:30 AM EDT [facility] Hematology/Oncology [address] [place] [address] [place] [address] 3 week follow up lab CHEMOTX CARBO/TAXOL/KEYTRUD A 02/22/2025 11:30 AM EDT Office Visit Palliative Medicine [address] [place] [address] [place] [address] Dianne Keller, PLAN COORDINATOR.JUDICIAL REGISTRAR [address] [place] [address] 3 month follow up documented as of this encounter Visit Diagnoses Not on filedocumented in this encounter Care Teams Meter Engineer Relationship Specialty Start Date End Date Gerson Gonzalez Jr., DO [address] [place] [phone] PCP - General 08/24/01 Gerson Gonzalez Jr., DO [address] [place] [address] Referring Internal Medicine 07/06/24 Ghislaine Thakur RN [address] [place] [address] [place] [address] Specialty Salesperson Furs Hematology/Oncology 08/31/24 Nicholas Gracia MD [address] [place] [address] [place] [address] Physician Hematology/Oncology 08/31/24 Dianne Keller APRN.JUDICIAL REGISTRAR [address] [place] [address] [place] [phone] Hospice & Palliative Medicine 08/31/24 Jazmyne Bryson, RN Specialty Salesperson Furs Hospice & Palliative Medicine 08/31/24 Danielle Castellon LSW Log Chipper 09/29/24 documented as of this encounter
--- OUTSIDE RECORDS SUMMARY | 2024-12-22 08:50 | XMS_ITS | Encounter Summary ---
Author Organization [facility] Address [address] [place] [address] Phone Care Team Providers Care Melter Supervisor Oxygen Furnace Name Role Phone Gerson Gonzalez DO Primary Care Provider [phone] Encounter Details Date Type Department Care Team (Late st Contact Info) Description 05/09/2024 Scanned Document [facility] [address] [place] [address] Scanning, Generic Provider Social History Tobacco Use Types Packs/Day Years Used Date Smoking Tobacco: Never Assessed Comments Unknown Sex and Gender Information Value Date Recorded Sex Assigned at Not on file Legal Sex Female 7:19 PM EST Gender Identity Not on file Sexual Orientation Not on file documented as of this encounter Plan of Treatment Not on file documented as of this encounter Visit Diagnoses Not on filedocumented in this encounter Care Teams Melter Supervisor Oxygen Furnace Relationship Specialty Start Date End Date Gerson Gonzalez DO PCP - General 12/21/09 documented as of this encounter
--- OUTSIDE RECORDS SUMMARY | 2024-12-22 08:50 | XMS_ITS | Encounter Summary ---
Author Organization [facility] Address [address] [place] [address] Care Team Providers Care Grape Grower Name Role Phone Lisa Carson DO, Charles Lewis Primary Care Provi heladio Lisa Carson DO, Charles Lewis Unavailable [phone] Ghislaine Thakur RN Unavailable [phone] Nicholas Gracia MD Unavailable [phone] Dianne Keller APRN.OIL PROGRAM COMPLIANCE SPECIALIST Unavailable + Jazmyne Bryson RN Unavailable Unavail able Danielle Castellon Unavailable Unavailable Source Comments In the event this information is protected by the Federal Confidentiality of Alcohol and Drug AbusePatient Records regulations: The Federal rules restrict any use of the information to criminally investigate or prosecute any alcohol or drug abuse patient.[facility] Encounter Details Date Type Department Care Team (Late st Contact Info) Description 04/24/2022 Get Medical Advice Facial [place] [address] [place], [place] [id number] Stephane Balbuena MD [address] [place], [place] [address] [address] New appointment Social History Tobacco Use Types Packs/Day Years Used Date Smoking Tobacco: Former Cigarettes 1.5 18 0 07/20/1981 - 07/20/1999 Smokeless Tobacco: Never Alcohol Use Standard Drinks/Week Comments No 0 (1 standard drink = 0.6 oz pur e alcohol) Area Deprivation Index Answer Date Mac rded National Score (1-100), lower number is lower ri sk 74 12/13/2021 State Score (1-10), lower number is lower risk N ot on file 12/13/2021 Data from: https://www.neighborhoodatlas.medicine.[facility].edu/. Last address used for calculation [address] 12/13/2021 Comments No Sex and Gender Information Value [...] 01/04/2025 9:45 AM EDT Office Visit [facility] [address] [address] 3 week follow up lab CHEMOTX CARBO/TAXOL/KEYTRUD A 01/04/2025 10:00 AM EDT Visit (SP) Office Hematology/Oncology [address] [place] [address] [place] [address] Nicholas Gracia MD [address] [place] [address] [place] [address] 3 week follow up lab CHEMOTX CARBO/TAXOL/KEYTRUD A 01/04/2025 10:30 AM EDT [facility] Hematology/Oncology [address] [place] [address] [place] [address] 3 week follow up lab CHEMOTX CARBO/TAXOL/KEYTRUD A 02/22/2025 11:30 AM EDT Office Visit Palliative Medicine [address] [place] [address] [place] [address] Dianne Keller, AFFIRMATIVE ACTION SPECIALIST.OIL PROGRAM COMPLIANCE SPECIALIST [address] [id number] 3 month follow up documented as of this encounter Visit Diagnoses Not on filedocumented in this encounter Care Teams Grape Grower Relationship Specialty Start Date End Date Gerson Gonzalez Jr., DO [address] [place] [phone] PCP - General 08/24/01 Gerson Gonzalez Jr., DO [address] [facility] [facility] [place] [address] Referring Internal Medicine 07/06/24 Ghislaine Thakur, RN [address] [place] [address] Specialty Sccm Administrator Hematology/Oncology 08/31/24 Nicholas Gracia MD [address] [place] [address] [place] [address] Physician Hematology/Oncology 08/31/24 Dianne Keller APRN.OIL PROGRAM COMPLIANCE SPECIALIST [address] [place] [address] [place] [address] Hospice & Palliative Medicine 08/31/24 Jazmyne Bryson, RN Specialty Sccm Administrator Hospice & Palliative Medicine 08/31/24 Danielle Castellon LSW Car Barn Laborer 09/29/24 documented as of this encounter
--- OUTSIDE RECORDS SUMMARY | 2024-12-22 08:50 | XMS_ITS | Encounter Summary ---
Author Organization [facility] Address [address] [place] [address] Care Team Providers Care Battery Charger Name Role Phone Lisa Carson DO, Charles Lewis Primary Care Provi heladio Lisa Carson DO, Charles Lewis Unavailable [phone] Ghislaine Thakur RN Unavailable [phone] Nicholas Gracia MD Unavailable [phone] Dianne Keller APRN.INSTRUCTOR DECORATING Unavailable + Jazmyne Bryson RN Unavailable Unavail able Danielle Castellon Unavailable Unavailable Source Comments In the event this information is protected by the Federal Confidentiality of Alcohol and Drug AbusePatient Records regulations: The Federal rules restrict any use of the information to criminally investigate or prosecute any alcohol or drug abuse patient.[facility] Encounter Details Date Type Department Care Team (Late st Contact Info) Description 08/03/2018 Patient Msg Pediatrics [place] [address] [place], [place] [id number] Provider, Ccf Yearly Thyroid Ultrasound Scheduling Reminder Social History Tobacco Use Types Packs/Day [...] AM EDT Office Visit [facility] Laboratory [address] [place] [address] [place] [address] 3 week follow up lab CHEMOTX CARBO/TAXOL/KEYTRUD A 01/04/2025 10:00 AM EDT Visit (SP) Office Hematology/Oncology [address] [place] [address] Nicholas Gracia MD [address] [place] [address] 3 week follow up lab CHEMOTX CARBO/TAXOL/KEYTRUD A 01/04/2025 10:30 AM EDT Infusion Center Hematology/Oncology [address] [place] [address] 3 week follow up lab CHEMOTX CARBO/TAXOL/KEYTRUD A 02/22/2025 11:30 AM EDT Office Visit Palliative Medicine [address] [place] [address] Dianne Keller, SURESH.INSTRUCTOR DECORATING [address] [place] [address] 3 month follow up documented as of this encounter Visit Diagnoses Not on filedocumented in this encounter Care Teams Battery Charger Relationship Specialty Start Date End Date Gerson Gonzalez Jr., DO [facility] [facility] [place] [address] PCP - General 08/24/01 Gerson Gonzalez Jr., DO [facility] [facility] [place] [address] Referring Internal Medicine 07/06/24 Ghislaine Thakur RN [address] [place] [address] Specialty Administrative And Program Specialist Hematology/Oncology 08/31/24 Nicholas Gracia MD [facility] [place] [address] Physician Hematology/Oncology 08/31/24 Dianne Keller SHAPER OPERATOR.INSTRUCTOR DECORATING NPI: [id number] [place] [address] [place] [address] Hospice & Palliative Medicine 08/31/24 Jazmyne Brsyon, RN Specialty Administrative And Program Specialist Hospice & Palliative Medicine 08/31/24 Danielle Castellon LSW Nutritional Chemist 09/29/24 documented as of this encounter
--- OUTSIDE RECORDS SUMMARY | 2024-12-22 08:50 | XMS_ITS | Clinical Summary ---
Author Organization [facility] Address [address] [place] [address] Phone Care Team Providers Care Environmental Services Aide Name Role Phone Gerson Gonzalez DO Primary Care Provider [phone] Allergies No known active allergies Medications propranolol (Inderal) 60 mg tablet Take 1 tablet (60 mg) by mouth as needed at bedtime (tremor). 12/28/2022 Active levothyroxine (Synthroid, Levoxyl) 25 mcg tablet Take 1 tablet (25 mcg) by mouth early in the morning.. 03/27/2023 Active FLUoxetine (PROzac) 20 mg capsule Take 1 capsule (20 mg) by mouth once daily. 11/26/2022 Active meloxicam (Mobic) 15 mg tablet Take 1 tablet (15 mg) by mouth early in the morning.. 05/20/2024 Active Active Problems Problem Noted Date Diagnosed Date Preoperative cardiovascular examination 05/27/20 24 BMI 31.0-31.9,adult 05/27/2024 Former smoker 05/27/2024 Acquired hypothyroidism 05/27/2024 Tremor 05/27/2024 Family History Medical History Relation Name Comments Valvular heart disease Brother 1 pacemaker Brother 2 Relation Name Status Comments Brother 1 Brother 2 Alive Social History Tobacco Use Types Packs/Day Years Used Date Smoking Tobacco: Former Cigarettes Smokeless Tobacco: Never Tobacco Cessation:Counseling Given: Not Answered Alcohol Use Standard Drinks/Week Comments Not Currently 0 (1 standard drink = 0.6 oz pur e alcohol) Comments Unknown Sex and Gender Information Value Date Recorded Sex Assigned at Not on file Legal Sex Female 7:19 PM EST Gender Identity Not on file Sexual Orientation Not on file Last Filed Vital Signs Vital Sign Reading Time Taken Comments Blood Pressure 126/74 05/27/2024 9:43 AM EST Pulse 68 05/27/2024 9:43 AM EST Temperature - - Respiratory Rate - - Oxygen Saturation - - Inhaled Oxygen Concentration - - Weight 95.7 kg (211 lb) 05/27/2024 9:42 AM EST Height 175.3 cm (5' 9 ) 05/27/2024 9:42 AM EST Body Mass Index 31.16 05/27/2024 9:42 AM EST Plan of Treatment Health Maintenance Due Date Last Done Comments Bone Density Scan 1956 CT Colonography 1956 Colonoscopy 1956 FIT 1956 Lipid Panel 1956 Medicare Annual Wellness Vis it (AWV) 1956 Sigmoidoscopy 1956 TSH Level 1956 Diabetes Screening 1974 Hepatitis C Screening 1974 DTaP/Tdap/Td Vaccines (1 - Tdap) 1978 Pneumococcal Vaccine (1 of 1 - PCV) 2006 Zoster Vaccines (1 of 2) 2006 Mammogram 11/07/2022 11/07/2021, 11/07/2021 COVID-19 Vaccine (4 - 2023-2 5 season) 2024 07/02/2021, 01/08/2021, 10/08/2020 Influenza Vaccine (Season Ended) 2025 Colorectal Cancer Screening 05/18/2027 FIT-DNA (Cologuard) 05/18/2027 05/18/2024, 04/24/2021 RSV High Risk: (Elderly (60+ ) or Population) (1 - 1-dose 75+ series) 09/24/2031 HIB Vaccines Aged Out No longer eligi ble based on patient's age to complete this topic HPV Vaccines Aged Out No longer eligi ble based on patient's age to complete this topic Hepatitis A Vaccines Aged Out No long er eligible based on patient's age to complete this topic Hepatitis B Vaccines Aged Out No long er eligible based on patient's age to complete this topic IPV Vaccines Aged Out No longer eligi ble based on patient's age to complete this topic Meningococcal Vaccine Aged Out No shakeel diego eligible based on patient's age to complete this topic Rotavirus Vaccines Aged Out No longer eligible based on patient's age to complete this topic Insurance MEDICARE PART A AND B MEDICARE PART A AND B Care Teams Environmental Services Aide Relationship Specialty Start Date End Date Gerson Gonzalez DO PCP - General 12/21/09
--- OUTSIDE RECORDS SUMMARY | 2024-12-22 08:50 | XMS_ITS | Encounter Summary ---
Author Organization [facility] Address [address] [place] [address] Care Team Providers Care Gear Tooth Grinding Machine Operator Name Role Phone Lisa Carson DO, Charles Lewis Primary Care Provi heladio Lisa Carson DO, Charles Lewis Unavailable [phone] Ghislaine Thakur RN Unavailable [phone] Nicholas Gracia MD Unavailable [phone] Dianne Keller APRN.SUPERVISOR SECURITIES VAULT Unavailable + Jazmyne Bryson RN Unavailable Unavail able Danielle Castellon Unavailable Unavailable Source Comments In the event this information is protected by the Federal Confidentiality of Alcohol and Drug AbusePatient Records regulations: The Federal rules restrict any use of the information to criminally investigate or prosecute any alcohol or drug abuse patient.[facility] Encounter Details Date Type Department Care Team (Late st Contact Info) Description 08/03/2024 Patient Msg Angio [address] [place] [address] Provider, Ccwilliam Pre procedure instructions 08/10 Social History Tobacco Use Types Packs/Day Years [...] is lower risk 8 04/10/2023 Data from: https://www.neighborhoodatlas.[facility]/. Last address used for calculation [address] [...] Description 01/04/2025 9:45 AM EDT Office Visit [facility] Laboratory [address] [place] [address] [place] [address] 3 week follow up lab CHEMOTX CARBO/TAXOL/KEYTRUD A 01/04/2025 10:00 AM EDT Visit (SP) Office Hematology/Oncology [address] [place] [address] Nicholas Gracia MD [address] [place] [address] [place] [address] 3 week follow up lab CHEMOTX CARBO/TAXOL/KEYTRUD A 01/04/2025 10:30 AM EDT [facility] Center Hematology/Oncology [address] [place] [address] [place] [address] 3 week follow up lab CHEMOTX CARBO/TAXOL/KEYTRUD A 02/22/2025 11:30 AM EDT Office Visit Palliative Medicine [address] [place] [address] [place] [address] Dianne Keller, SHEET METAL SUPERVISOR.SUPERVISOR SECURITIES VAULT [address] [place] [address] 3 month follow up documented as of this encounter Visit Diagnoses Not on filedocumented in this encounter Care Teams Gear Tooth Grinding Machine Operator Relationship Specialty Start Date End Date Gerson Gonzalez Jr., DO [address] [place] [address] PCP - General 08/24/01 Gerson Gonzalez Jr., DO [address] [facility] [address] Referring Internal Medicine 07/06/24 Ghislaine Thakur, MEKHI [address] [place] [address] Specialty Public Transportation Inspector Hematology/Oncology 08/31/24 Nicholas Gracia MD [address] [place] [address] Physician Hematology/Oncology 08/31/24 Dianne Keller APRN.SUPERVISOR SECURITIES VAULT [address] [facility] [place] [address] Hospice & Palliative Medicine 08/31/24 Jazmyne Bryson, RN Specialty Public Transportation Inspector Hospice & Palliative Medicine 08/31/24 Danielle Castellon LSW Portable Feed Mill Operator 09/29/24 documented as of this encounter
--- OUTSIDE RECORDS SUMMARY | 2024-12-22 08:50 | XMS_ITS | Encounter Summary ---
Author Organization [facility] Address [address] [place] [address] Care Team Providers Care Process Treater Name Role Phone Lisa Carson DO, Charles Lewis Primary Care Provi heladio Lisa Carson DO, Charles Lewis Unavailable [phone] Ghislaine Thakur RN Unavailable [phone] Nicholas Gracia MD Unavailable [phone] Dianne Keller APRN.LIFT MECHANIC Unavailable + Jazmyne Bryson RN Unavailable Unavail able Danielle Castellon Unavailable Unavailable Source Comments In the event this information is protected by the Federal Confidentiality of Alcohol and Drug AbusePatient Records regulations: The Federal rules restrict any use of the information to criminally investigate or prosecute any alcohol or drug abuse patient.[facility] Encounter Details Date Type Department Care Team (Late st Contact Info) Description 10/17/2020 Patient Msg Plastic Surgery [address] [place], [place] [id number] Provider, Ccf RE:Justina/Dr. Balbuena Social History Tobacco Use Types Packs/Day [...] N ot on file 06/26/2020 Data from: https://www.neighborhoodatlas.medicine.[facility]/. Last address used for calculation Not on file 06/26/2020 Comments No Sex and Gender Information Value Date Recorded Sex Assigned at Not on file Legal Sex Female 9:48 AM EST Gender Identity Female 12/12/2021 11:07 AM EDT Sexual Orientation Not on file Occupation Industry Job Start Date Job End Date disabled Not on file Not on file Not on file COVID-19 Exposure Response Date Recorded In the last month, have you been in contact with someone who was confirmed or suspected to have Coronavirus / COVID-19? Unable to assess 10/17/2020 8:18 AM EDT documented as of this encounter Functional Status [...] Description 01/04/2025 9:45 AM EDT Office Visit [facility] Laboratory [address] [place] [address] [place] [address] 3 week follow up lab CHEMOTX CARBO/TAXOL/KEYTRUD A 01/04/2025 10:00 AM EDT Visit (SP) Office Hematology/Oncology [address] [place] [address] [place] [address] Nicholas Gracia MD [address] [place] [address] [place] [address] 3 week follow up lab CHEMOTX CARBO/TAXOL/KEYTRUD A 01/04/2025 10:30 AM EDT [facility] Center Hematology/Oncology [address] [place] [address] [place] [address] 3 week follow up lab CHEMOTX CARBO/TAXOL/KEYTRUD A 02/22/2025 11:30 AM EDT Office Visit Palliative Medicine [address] [place] [address] [place] [address] Dianne Keller, WAGON DRILLER.LIFT MECHANIC [address] [id number] 3 month follow up documented as of this encounter Visit Diagnoses Not on filedocumented in this encounter Care Teams Process Treater Relationship Specialty Start Date End Date Gerson Gonzalez Jr., DO [facility] [place] [address] PCP - General 08/24/01 Gerson Gonzalez Jr., DO [address] [place] [address] Referring Internal Medicine 07/06/24 Ghislaine Thakur RN [address] [place] [address] [place] [address] Specialty Program Manufacturing Leader Hematology/Oncology 08/31/24 Nicholas Gracia MD [address] [place] [place] [address] Physician Hematology/Oncology 08/31/24 Dianne Keller APRN.[facility] [address] [place] [place] [phone] Hospice & Palliative Medicine 08/31/24 Jazmyne Bryson, RN Specialty Program Manufacturing Leader Hospice & Palliative Medicine 08/31/24 Danielle Castellon LSW Tour Coordinator 09/29/24 documented as of this encounter
--- OUTSIDE RECORDS SUMMARY | 2024-12-22 08:50 | XMS_ITS | Encounter Summary ---
Author Organization [facility] Address [address] [place] [address] Care Team Providers Care Commercial Real Estate Lender Name Role Phone Lisa Carson DO, Charles Lewis Primary Care Provi heladio Lisa Carson DO, Charles Lewis Unavailable [phone] Ghislaine Thakur RN Unavailable [phone] Nicholas Gracia MD Unavailable [phone] Dianne Keller APRN.VARNISHER PLASTICOATER Unavailable + Jazmyne Bryson RN Unavailable Unavail able Danielle Castellon Unavailable Unavailable Source Comments In the event this information is protected by the Federal Confidentiality of Alcohol and Drug AbusePatient Records regulations: The Federal rules restrict any use of the information to criminally investigate or prosecute any alcohol or drug abuse patient.[facility] Encounter Details Date Type Department Care Team (Late st Contact Info) Description 2021 [place] [address] Provider, [facility] Medicare Coverage of Physical Exams Social History Tobacco Use Types Packs/Day Years [...] N ot on file 06/26/2020 Data from: https://www.neighborhoodatlas.[facility]/. Last address used for calculation Not on [...] Office Visit [facility] [address] [facility] [place] [address] 3 week follow up lab CHEMOTX CARBO/TAXOL/KEYTRUD A 01/04/2025 10:00 AM EDT Visit (SP) Office Hematology/Oncology [address] [facility] [place] [address] Nicholas Gracia MD [address] [place] [address] [place] [address] 3 week follow up lab CHEMOTX CARBO/TAXOL/KEYTRUD A 01/04/2025 10:[address] [facility] Hematology/Oncology [address] [place] [address] [place] [address] 3 week follow up lab CHEMOTX CARBO/TAXOL/KEYTRUD A 02/22/2025 11:30 AM EDT Office Visit Palliative Medicine [address] [place] [address] [place] [address] Dianne Keller, VETERINARY LABORATORY DIAGNOSTICIAN.VARNISHER PLASTICOATER [address] [id number] 3 month follow up documented as of this encounter Visit Diagnoses Not on filedocumented in this encounter Care Teams Commercial Real Estate Lender Relationship Specialty Start Date End Date Gerson Gonzalez Jr., DO [facility] [place] [address] PCP - General 08/24/01 Gerson Gonzalez Jr., DO [address] [place] [address] Referring Internal Medicine 07/06/24 Ghislaine Thakur RN [address] [facility] [place] [address] Specialty Clerk Rating Hematology/Oncology 08/31/24 Nicholas Gracia MD [address] [facility] [place] [address] Physician Hematology/Oncology 08/31/24 Dianne Keller APRN.VARNISHER PLASTICOATER [address] [facility] [place] [address] Hospice & Palliative Medicine 08/31/24 Jazmyne Bryson, RN Specialty Clerk Rating Hospice & Palliative Medicine 08/31/24 Danielle Castellon LSW Legal Secretary 09/29/24 documented as of this encounter
--- OUTSIDE RECORDS SUMMARY | 2024-12-22 08:50 | XMS_ITS | Encounter Summary ---
Author Organization [facility] Address [facility] [place] [address] Care Team Providers Care Foster Care Case Manager Name Role Phone Lisa Carson DO, Charles Lewis Primary Care Provi heladio Lisa Carson DO, Charles Lewis Unavailable [phone] Ghislaine Thakur RN Unavailable [phone] Nicholas Gracia MD Unavailable [phone] Dianne Keller APRN.PRODUCTION BOW MAKER Unavailable + Jazmyne Bryson RN Unavailable Unavail able Danielle Castellon Unavailable Unavailable Source Comments In the event this information is protected by the Federal Confidentiality of Alcohol and Drug AbusePatient Records regulations: The Federal rules restrict any use of the information to criminally investigate or prosecute any alcohol or drug abuse patient.[facility] Encounter Details Date Type Department Care Team (Late st Contact Info) Description 05/25/2018 Patient Msg Medical Records [address] [place] [address] Provider, Cc RE: Patient Registration Completed Social History Tobacco Use Types Packs/Day Years [...] Description 01/04/2025 9:45 AM EDT Office Visit [facility] Laboratory [address] [place] [address] [place] [address] 3 week follow up lab CHEMOTX CARBO/TAXOL/KEYTRUD A 01/04/2025 10:00 AM EDT Visit (SP) Office Hematology/Oncology [address] [facility] [address] Nicholas Gracia MD [address] [place] [address] 3 week follow up lab CHEMOTX CARBO/TAXOL/KEYTRUD A 01/04/2025 10:30 AM EDT [facility] Hematology/Oncology [address] [place] [address] 3 week follow up lab CHEMOTX CARBO/TAXOL/KEYTRUD A 02/22/2025 11:30 AM EDT Office Visit Palliative Medicine [address] [place] [address] Dianne Keller, ADMINISTRATIVE DIRECTOR.PRODUCTION BOW MAKER [address] [place] [address] 3 month follow up documented as of this encounter Visit Diagnoses Not on filedocumented in this encounter Care Teams Foster Care Case Manager Relationship Specialty Start Date End Date Gerson Gonzalez Jr., DO [facility] [place] [address] PCP - General 08/24/01 Gerson Gonzalez Jr., DO [facility] [facility] [place] [address] Referring Internal Medicine 07/06/24 Ghislaine Thakur RN [address] [place] [address] Specialty Case Therapist Hematology/Oncology 08/31/24 Nicholas Gracia MD [facility] [place] [address] Physician Hematology/Oncology 08/31/24 Dianne Keller, ADMINISTRATIVE DIRECTOR.PRODUCTION BOW MAKER [address] [place] [address] [place] [address] Hospice & Palliative Medicine 08/31/24 Jazmyne Bryson, RN Specialty Case Therapist Hospice & Palliative Medicine 08/31/24 Danielle Castellon LSW Contact Lens Technician 09/29/24 documented as of this encounter
--- OUTSIDE RECORDS SUMMARY | 2024-12-22 08:50 | XMS_ITS | Encounter Summary ---
Author Organization [facility] Address [facility] [place] [address] Care Team Providers Care Epic Trainer Name Role Phone Lisa Carson DO, Charles Lewis Primary Care Provi heladio Lisa Carson DO, Charles Lewis Unavailable [phone] Ghislaine Thakur RN Unavailable [phone] Nicholas Gracia MD Unavailable [phone] Dianne Keller APRN.CREDIT NEGOTIATOR Unavailable + Jazmyne Bryson RN Unavailable Unavail [...] Care Team (Late st Contact Info) Description 08/24/2024 Patient Msg Hematology/Oncology [address] [place] [address] Luis M Silvestre DO [address] [place] [address] MRI Brain order Social History Tobacco Use Types Packs/Day Years [...] risk 8 04/10/2023 Data from: https://www.neighborhoodatlas.medicine.[facility].edu/. Last address used for calculation 629 [...] Office Visit [facility] Laboratory [address] [place] [address] [place] [address] 3 week follow up lab CHEMOTX CARBO/TAXOL/KEYTRUD A 01/04/2025 10:00 AM EDT Visit (SP) Office Hematology/Oncology [address] [place] [address] [place] [address] Nicholas Gracia MD [address] [place] [address] [place] [address] 3 week follow up lab CHEMOTX CARBO/TAXOL/KEYTRUD A 01/04/2025 10:30 AM EDT [facility] Hematology/Oncology [address] [place] [address] [place] [address] 3 week follow up lab CHEMOTX CARBO/TAXOL/KEYTRUD A 02/22/2025 11:30 AM EDT Office Visit Palliative Medicine [address] [place] [address] [place] [address] Dianne Keller, PICK PACK WORKER.CREDIT NEGOTIATOR [address] [phone] 3 month follow up documented as of this encounter Visit Diagnoses Not on filedocumented in this encounter Care Teams Epic Trainer Relationship Specialty Start Date End Date Gerson Gonzalez Jr., DO [address] [place] [address] PCP - General 08/24/01 Gerson Gonzalez Jr., DO [address] [place] [address] Referring Internal Medicine 07/06/24 Ghislaine Thakur RN [address] [facility] [place] [address] Specialty [place] Hematology/Oncology 08/31/24 Nicholas Gracia MD [address] [facility] [place] [address] Physician Hematology/Oncology 08/31/24 Dianne Keller APRN.[facility] [address] [facility] [place] [address] Hospice & Palliative Medicine 08/31/24 Jazmyne Bryson, RN Specialty [place] Hospice & Palliative Medicine 08/31/24 Danielle Castellon LSW Rn Case Mgr 09/29/24 documented as of this encounter
--- OUTSIDE RECORDS SUMMARY | 2024-12-22 08:50 | XMS_ITS | Patient Health Record ---
Author Organization [facility] Address [address] [place] [address] Care Team Providers Care Geological Engineer Name Role Phone Gerson Clements DO Primary Care Provider Unavail Vincent Connor Unavailable [phone] Allergies No Known Allergies Results Component Value Reference Range Notes XR foot LT min 3V (Not yet r eviewed by provider) Interpretation: Performing Lab: Notes/Report: Source Facility: [place] [address] XRay Report Signed Patient: OFE SARAVIA MR#: [id number] : 1955 Acct:[id number] Age/Sex: 68 / F ADM Date: 04/21/24 Loc: Attending Dr: Vincent Burciaga Ordering Physician: Vincent Burciaga Date of Service: 04/21/24 Procedure(s): XR foot LT min 3V Accession Number(s): [id number] cc: Vincent Burciaga; GERSON CLEMENTS D.O. [address] [place] [id number] Patient Name: OFE SARAVIA MRN: [id number] date: 1955 Sex: F Assigned Patient Location: Current Patient Location: Accession/Order Number: [id number] Exam Date: 04/21/2024 11:37 Report Date: 04/22/2024 06:10 At the request of: VINCENT BURCIAGA Procedure: XR foot LT min 3V PROCEDURE: XR foot LT min 3V HISTORY: LEFT FOOT PAIN , medial midfoot and forefoot pain; painful lump on left foot COMPARISON: XR ankle left 08/21/2020 FINDINGS: BONES:No fracture, acute abnormality, or significant arthropathy. Prior mechanical repair of distal fibula via a lateral plate and screws and fusion of the syndesmosis. SOFT TISSUES:No visible soft tissue swelling. EFFUSION:None visible. OTHER: Negative. XR/XR foot LT min 3V IMPRESSION: 1. No acute abnormality or significant degenerative changes of the foot to account for patient's symptoms. 2. Stable surgical changes of the distal fibula and tibia with persistent lucency surrounding the screws, but no appreciable hardware loosening. Electronically authenticated by: RAFAEL VELASQUEZ Date: 04/22/2024 06:10 Dictated By: Rafael Velasquez M.D. Signed By: 04/22/24612 DD/ 9 TD/TT: Railroad Passenger Agent: [place] [address] XRay Report Signed Patient: NICHELLE SARAVIA MR#: [id number] : 1955 Acct:[id number] Age/Sex: 68 / F ADM Date: 04/21/24 Loc: Attending Dr: Vincent Burciaga Ordering Physician: Vincent Burciaga Date of Service: 04/21/24 Procedure(s): XR foot LT min 3V Accession Number(s): [id number] cc: Vincent Burciaga; GERSON CLEMENTS D.O. [place] [address] Patient Name: OFE SARAVIA MRN: [id number] date: 1955 Sex: F Assigned Patient Location: Current Patient Location: Accession/Order Numb er: [id number] Exam Date: 11:37 Report Date: 04/22/2024 06:10 At the request of: VINCENT BURCIAGA Procedure: XR foot LT min 3V PROCEDURE: XR foot LT min 3V HISTORY: LEFT FOOT P AIN , medial midfoot and forefoot pain; painful lump on left foot COMPARISON: XR ankle left 08/21/2020 FINDINGS: BONES:No fracture, a cute abnormality, or significant arthropathy. Prior mechanical repair of distal fibula via a lateral plate and screws and fusion of the syndesmosis. SOFT TISSUES:No visi ble soft tissue swelling. EFFUSION:None visible. OTHER: Negative. X R/XR foot LT min 3V IMPRESSION: 1. No acute abnormal ity or significant degenerative changes of the foot to account for patient's symptoms. 2. Stable surgical c hanges of the distal fibula and tibia with persistent lucency surrounding the screws, but no appreciable hardware loosening. Electronically authe nticated by: RAFAEL VELASQUEZ Date: 04/22/2024 06:10 Dictated By: Rafael Velasquez M.D. Signed By: 04/22/24612 DD/ 9 TD/TT: Railroad Passenger Agent: Reason For Referral No Information Medications Medication SIG (Take, Route, Fr equency, Duration) Notes Start Date End Date Status clonazePAM 0.5 MG Orally N ot-Taking Gabapentin 300 MG Orally No t-Taking Meloxicam 15 MG TAKE 1 TABLET BY HUGO TH EVERY DAY FOR 30 DAYS for 30 Active Calcium Active magnesium oxide Act jeffrey PROzac 20 MG 1 capsule Orally Once a day Active Vitamin B-12 Active Vitamin D Active Zetia 10 MG 1 tablet Orally Once a day 04/21/2024 Active Problems Problem Type SNOMED Code ICD Code Onset Dates Problem Status W/U Status Risk Notes Problem [id number] Plantar fascia l fibromatosis (M72.2) Active confirmed Problem 64393220452273533 Other congenit al malformations of lower limb(s), 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 Problem 507850342 Primary osteoarthritis of right knee (M17.11) Active confirmed Problem 684981429423783 Primary osteoarthritis of left knee (M17.12) Active confirmed Problem 344914766 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) Active confirmed Problem Left foot pain (M79.672) Active confirmed Problem 314847472 Primary osteoarthritis of knees, 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) Active confirmed Vital Signs Heart Rate 82 /min 05/26/2024 Temperature 96.8 degrees Fahrenheit 05/26/2024 Respiratory Rate 16 /min 04/21/2024 Oximetry 98 % 05/26/2024 Height 70 in 05/26/2024 Weight 210 lbs 05/26/2024 BMI 30.13 kg/m2 05/26/2024 Encounters Encounter Location Date Provider Diagnosis [facility] (PODIATRY) [address] [place] [address] [place] [address] 04/21/2024 Vincent Elcho Posterior tibial tendinitis, left leg M76.822 ; Other congenital malformations of lower limb(s), including pelvic girdle Q74.2 ; Plantar fascial fibromatosis M72.2 and Left foot pain M79.672 [facility] (PODIATRY) [address] [place] [address] [place] [address] 05/26/2024 Vincent Blaze Posterior tibial tendinitis, left leg M76.822 and [...] limb(s), including pelvic girdle (ICD-10 - Q74.2) 05/26/2024 Posterior tibial tendinitis, left leg (ICD-10 [...] therapy.I encouraged her to try on different ylft-lxv-lpfoyrc ankle braces to see if she is able to find one that is more comfortable. She could also try mkka-ymh-ltmjqkq shoe inserts.Foot soaks and massage were encouraged.Follo w-up in 4 to 6 weeks, sooner if any issues arise. No x-rays necessary at that time. 05/26/2024 Other congenital malformations of lower limb(s), including pelvic girdle (ICD-10 - Q74.2) Accessory navicular Accessory navicular 04/21/2024 Plantar fascial fibromatosis (ICD-10 - M72.2) 04/21/2024 Left foot pain (ICD-10 - M79.672) Plan Of Treatment Pending Test Test Name Order Date XR Foot LT (3 views) * 04/21/2024 XR foot LT min 3V 04/22/2024 Insurance Providers Payer Name Payer Address Payer Phone Subscriber Number Group Number Insured Name Patient Relationship to Insured Coverage Start Date Coverage End Date [place]IC[place] [address] [place] [address] [phone] [id number] Ofe Saravia Self - patient is the insured 9 [facility] HE[facility] [address] [address] [place] [address] [phone] [id number] Ofe Saravia Self - patient is the insured Medications Administered Medication Instructions Date of Administration Dosage Notes Bupivacaine 05/24/2021 3 mL Depo-Medrol, 80 mg/mL 10/30/2016 1 mL Kenalog, 80 mg/mL (40mg/mL x 2 units) 05/24/2021 2 mL Synvisc-One 48 mg 12/11/2016 6 mL Medical (General) History Medical History History ICD Code History of hearing loss Snoring Previous history of headache preceded by vertigo Surgical History Surgery Date(Month/Year) Surgical / procedural histor y Brainstem resection of cavernous malformation in 10/26 2008 Surgical / procedural histor y Brainstem resection of cavernous malformation in 10/26 eyes /2011/2013 facial surgery 2009 Hospitalization History Reason Date(Month/Year) see above
--- OUTSIDE RECORDS SUMMARY | 2024-12-22 08:50 | XMS_ITS | Encounter Summary ---
Author Organization [facility] Address [address] [place], [place] [address] Care Team Providers Care Central Aisle Cashier Name Role Phone Lisa Carson DO, Charles Lewis Primary Care Provi heladio Lisa Carson DO, Charles Lewis Unavailable [phone] Ghislaine Thakur RN Unavailable [phone] Nicholas Gracia MD Unavailable [phone] Dianne Keller APRN.GRAIN GRADER Unavailable + Jazmyne Bryson RN Unavailable Unavail able Danielle Castellon Unavailable Unavailable Source Comments In the event this information is protected by the Federal Confidentiality of Alcohol and Drug AbusePatient Records regulations: The Federal rules restrict any use of the information to criminally investigate or prosecute any alcohol or drug abuse patient.[facility] Encounter Details Date Type Department Care Team (Late st Contact Info) Description 05/01/2018 Patient Msg Ophthalmology [address] [id number] Robin Liu I, MD [address] [place], [place] [address] [place] [address] RE: Appointment Cancellation Request Social History Tobacco [...] AM EDT Office Visit [facility] [address] [place] [address] [place] [address] 3 week follow up lab CHEMOTX CARBO/TAXOL/KEYTRUD A 01/04/2025 10:00 AM EDT Visit (SP) Office Hematology/Oncology [address] [facility] [place] [address] Nicholas Gracia MD [address] [place] [address] [place] [address] 3 week follow up lab CHEMOTX CARBO/TAXOL/KEYTRUD A 01/04/2025 10:30 AM EDT [facility] Hematology/Oncology [address] [facility] [place] [address] 3 week follow up lab CHEMOTX CARBO/TAXOL/KEYTRUD A 02/22/2025 11:30 AM EDT Office Visit Palliative Medicine [address] [place] [address] [place] [address] Dianne Keller, BUILDING ANALYST/SUPERVISOR.GRAIN GRADER [address] [id number] 3 month follow up documented as of this encounter Visit Diagnoses Not on filedocumented in this encounter Care Teams Central Aisle Cashier Relationship Specialty Start Date End Date Gerson Gonzalez Jr., DO [address] [place] [address] [place] [address] PCP - General 08/24/01 Gerson Gonzalez Jr., DO [address] [place] [address] Referring Internal Medicine 07/06/24 Ghislaine Thakur RN [address] [facility] [place] [address] Specialty Center Human Resources Manager Hematology/Oncology 08/31/24 Nicholas Gracia MD [address] [place] [address] [place] [address] Physician Hematology/Oncology 08/31/24 Dianne Keller APRN.GRAIN GRADER [address] [place] [address] [place] [address] Hospice & Palliative Medicine 08/31/24 Jazmyne Bryson, RN Specialty Center Human Resources Manager Hospice & Palliative Medicine 08/31/24 Danielle Castellon LSW Procurement Clerk 09/29/24 documented as of this encounter
== END 2024-12-22 08:43 | disposition home or self-care (01) ==
LOC: MRI 08:42
PROVIDERS: PCP Internal Medicine; Visit Provider Physician Assistant Medical
DX: C34.81 Malignant neoplasm of overlapping sites of right bronchus and lung (principal); C79.51 Secondary malignant neoplasm of bone; R53.81 Other malaise; R53.83 Other fatigue; M79.621 Pain in right upper arm; M79.89 Other specified soft tissue disorders
CPT/HCPCS: 73223; A9575

== ENCOUNTER 2025-07-16 15:02 | Emergency (ER) | payer MEDICARE, OTHER, SELFPAY ==
--- OUTSIDE RECORDS SUMMARY | 2024-07-07 08:20 | XMS_ITS ---
Author Organization The [facility] in [place] Address [address] [place] [address] Care Team Providers Care Credit Controller Name Role Phone Gerson Gonzalez DO Primary Care Provider Unavail Dianne Connor Unavailable [phone] REASON FOR VISIT 6 week f/u Encounters Encounter Location Date Provider Diagnosis [facility] (POD[facility]) [address] [place] [address] [place] [address] 07/07/2024 Dianne Thakur Plan Of Treatment No Information Progress Notes * Ofe SARAVIA KDOB: 7 (69 yo F)Acc No.[id number]:07/07/2024 UNLOCKED PROGRESS NOTE Follow Up Patient: Marylou AMINemery Babb :?JAY JAY PulidoCDOB:1955???Age:68 Y ???Sex:FemaleDate:07/07/2024hone:[phone]:[place] Jorge Villa DrMISSOURI BAP[facility] HOSPITAL-SULLIVANHG-[address]Wka:Gerson Gonzalez DO Subjective: * Chief Complaints: * 1 . 6 week f/u. * Medical History: Objective: * Vitals: Assessment: Plan: * Treatment: * * Electronic signature of Dianne Thakur PA-C on 07/16/2025 at 04:08 PM ESTSign off status: PendingVisit Status:?CANC (Cancelled) * Provider: Skinny Thakur PA-C Date: 09/07/2023 Generated for Printing/Faxing/eTransmitting on:?07/16/2025 04:08 PM EST
--- OUTSIDE RECORDS SUMMARY | 2025-07-05 09:20 | XMS_ITS | Encounter Summary ---
Author Organization [facility] Address [address] [place] [id number] Care Team Providers Care Plastic And Reconstructive Surgeon Name Role Phone Lisa Carson DO, Charles Lewis Primary Care Provi heladio Lisa Carson DO, Charles Lewis Unavailable [phone] Ghislaine Thakur RN Unavailable [phone] Isaac Gracia MD Unavailable [phone] Dianne Keller APRN.STAFF APPRAISER Unavailable + Danielle Castellon Unavailable Unavailable Ramone Marcos RN Unavailable Unava ilable Source Comments In the event this information is protected by the Federal Confidentiality of Alcohol and Drug AbusePatient Records regulations: The Federal rules restrict any use of the information to criminally investigate or prosecute any alcohol or drug abuse patient.[facility] Reason for Referral * Consult, Test, Treat (Routine) - AuthorizedSpecialtyDiagnoses / Procedures Referred By ContactReferred To Contact Diagnoses Malignant neoplasm of overlapping sites of right lung (HCC) Procedures OFFICE/OUTPATIENT NEW HIGH MDM 60 MINUTES Isaac Gracia MD [address] [place] [address] [place] [address] Phone: tel: fax: Referral IDStatusReasonStspring DateExpiration DateVisits RequestedVisits [id number] PCP Requested Referral * MRI/CT (Routine) - New RequestSpecialtyDiagnoses / ProceduresReferred By ContactReferred To ContactMR IMAGING Diagnoses Malignant neoplasm of overlapping sites of right lung (HCC) Procedures MRI BRAIN WO/W IVCON MRI BRAIN BRAIN STEM W/O W/CONTRAST MATERIAL Isaac Gracia MD [address] [place] [address] [place] [address] Phone: tel: fax: [facility] Referral IDStatusReasonMarine DateExpiration DateVisits RequestedVisits [id number] Request Auto-Generated Referral / Encounter Details DateTypeDepartmentCare Team (Latest Contact Info)Ukvhvlbtspm10/17/2025 9:20 AM ESTVisit (SP) Office Hematology/Oncology [address] [place] [address] [place] [address] Isaac Gracia MD [address] [place] [address] [place] [address] Malignant neoplasm of overlapping sites of right lung (HCC) (Primary Dx) Social History Tobacco UseTypesPacks/DayYears UsedDateSmoking Tobacco: FormerCigarettes1.518 07/20/1981 - 07/20/1999Smokeless Tobacco: Never Tobacco Cessation:Counseling Given: Not Answered Alcohol UseStandard Drinks/WeekCommentsNo0 (1 standard drink = 0.6 oz pure alcohol)PHQ-2AnswerDate RecordedPHQ-2 emsdk829/16/2025Area Deprivation Index AnswerDate RecordedNational Score (1-100), lower number is lower risk87 04/10/2023State Score (1-10), lower number is lower oshb3893Data from: https://www.neighborhoodatlas.medicine.[facility]/. Last address used for rvsrebvtmli[address]CommentsNoSex and Gender Information ValueDate RecordedSex Assigned at BirthNot on fileLegal LfcYtqnzh57/02/2012 9:48 AM ESTGender AhingcxhEbtxke51/26/2022 11:07 AM EDTSexual OrientationNot on file OccupationIndustryJob Start DateJob End DatedisabledNot on fileNot on fileNot on filedocumented as of this encounter Last Filed Vital Signs Vital SignReadingTime TakenCommentsBlood Wzsicsty806/6207/05/2025 8:56 AM EST Bgxnl29025/17/2025 8:56 AM LXCArwqpnfeplz80.3 ??C (97.3 ??F)07/05/2025 8:56 AM ESTRespiratory Hfvk636509/05/2024 8:56 AM ESTOxygen Ecezaexpsx60%07/05/2025 8:56 AM ESTInhaled Oxygen Concentration--Ycykmp44.4 kg (168 lb 6.9 oz)07/05/2025 8:56 AM ESTHeight--Body Mass Index25.5310 12:46 PM EDTdocumented in this encounter Functional Status * Are you deaf or do you have serious difficulty hearing?AnswerDate of SznbdvztxiHdyihoCew58/27/2015 12:58 PM Penny Wills MA * Are you blind or do you have serious difficulty seeing, even when wearing glasses?AnswerDate of QucjhobxdeOcaaumMqu22/27/2015 12:58 PM Penny Wills MA * Do you have serious difficulty walking or climbing stairs?AnswerDate of BzgnlwaokeNkdpluBr48/27/2015 12:58 PM Penny Wills MA * Do you have difficulty dressing or bathing?AnswerDate of AssessmentAuthorNo 09/15/2014 12:58 PM Penny Wills MA * Because of a physical, mental, or emotional condition, do you have difficulty doing errands alone such as visiting a doctor's office or shopping?AnswerDate of MsdbpmlkqkKlertgYwk60/27/2015 12:58 PM Penny Wills MA documented as of this encounter Mental Status * Because of a physical, mental, or emotional condition, do you have serious difficulty concentrating, remembering, or making decisions?AnswerEntry Date NnpeniZi87/27/2015 12:58 PM Penny Wills MA documented in this encounter Patient Instructions * Patient Instructions* Isaac Gracia MD - 07/05/2025 9:16 AM EST Chemo teach for Gemcitabine Schedule gemcitabine next week D/c Ramucirumab, docetaxel F/u with Vicki on 07/11/25 Ordered MRI brain Refer to oncology at [facility] for a second opinion on lung cancer F/u next week documented in this encounter Progress Notes * Isaac Gracai MD - 07/05/2025 9:02 AM EST Images from the original note were not included. PATIENT NAME: Ofe Stephenson CLINIC NO.: [id number] ATTENDING PHYSICIAN: Isaac Gracia MD DATE OF [...] with Dr. Cuevas from rad onc at [facility] who recommended palliative RT closer to home, at [facility]. 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 Isaac Gracia MD. Hematology and Oncology Services Provided at: [place], [place] CC: I spent a total of 30 minutes on the date of the service which included preparing to see the patient, gnfk-mv-gwnr patient care, completing clinical documentation, performing a [...] Plan of Treatment DateTypeDepartmentCare Team (Latest Contact Info)Pzicynouwkd31/30/2025 2:15 PM ESTOffice Visit [facility] [address] [place] [address] [place] [address] follow up mveetwgthaa71/30/2025 2:30 PM ESTVisit (SP) Office Hematology/Oncology [address] [place] [address] [place] [address] Vicki Soriano APRN.STAFF APPRAISER [address] [place] [address] [place] [address] follow up oitnrptpcpo76/30/2025 3:00 PM [facility] Hematology/Oncology [address] [place] [address] [place] [address] follow up uguvmjjqfzc01/31/2025 1:00 PM [facility] Hematology/[place] [address] Luis M Silvestre, [address] [place] [address] VV FOLLOW UP07/25/2025 1:15 PM ESTOffice Visit [facility] [address] [place] [address] [place] [address] lab follow up and chemotx Jdrxag7707/25/2025 1:40 PM ESTVisit (SP) Office Hematology/Oncology [address] [place] [address] [place] [address] Miguel Sheridan MD [address] [place] [address] [place] [address] lab follow up and chemotx Ujaojs8007/25/2025 2:30 PM [facility] Hematology/Oncology [address] [place] [address] [place] [address] lab follow up and chemotx Lkslyb8108/29/2025 10:30 AM ESTOffice Visit Palliative Medicine [address] [place] [address] [place] [address] Dianne Keller, SALVAGE MECH[employer]IC.STAFF APPRAISER [address] [place], [place] [id number] 3 month follow up09/19/2025 1:40 PM ESTOffice Visit Endocrinology [address] [place], [place] [phone] Shawna Card MD, PhD [address] [place], [place] [phone] Return in about 6 months (around 09/14/2025).NameTypePriorityAssociated Diagnoses Order ScheduleMRI BRAIN WO/W IVCONRadiologyRoutine Malignant neoplasm of overlapping sites of right lung (HCC) Expected: 07/12/2025 (Approximate), Expires: 08/04/2026NameTypePriority Associated DiagnosesOrder ScheduleCONSULT TO HEMATOLOGY/ONCOLOGYReferralRoutine Malignant neoplasm of overlapping sites of right lung (HCC) 1 Occurrences starting 07/05/2025 until 07/05/2026documented as of this encounter Procedures Procedure NamePriorityDate/TimeAssociated DiagnosisCommentsREFERRAL FOR ADDITIONAL BIOMARKER AND MOLECULAR PJTSNODOkeqpoq96/17/2025 12:54 PM EST Malignant neoplasm of overlapping sites of right lung (HCC) documented in this encounter Results * REFERRAL FOR ADDITIONAL BIOMARKER AND MOLECULAR TESTING (07/05/2025 12:54 PM EST)ComponentValueRef RangeTest MethodAnalysis TimePerformed AtPathologist MyltpcdbiSMOPSK71/17/2025 3:25 PM ESTNOR[facility]COAST [facility] Comment:Request has been received for evaluation and the results will be issued separately.Specimen (Source)Anatomical Location / LateralityCollection Method / VolumeCollection TimeReceived TimeTissuePARAFFIN EMBEDDED TISSUE BLOCK SPECIMEN / Zlllmiu0507/05/2025 12:54 PM EST07/05/2025 12:54 PM EST Narrative [facility] - 07/05/2025 3:25 PM EST Authorizing ProviderResult TypeResult StatusAdars Torresureddy MDLABORATORY Final ResultPerforming OrganizationAddressCity/State/ZIP CodePhone Number [facility] [address] [place] [address] documented in this encounter Visit Diagnoses Diagnosis Malignant neoplasm of overlapping sites of right lung (HCC)- Primary documented in this encounter Care Teams Team MemberRelationshipSpecialtyStart DateEnd Date Gerson Gonzalez Jr., DO [address] [place] [id number] PCP - General08/24/01 Gerson Gonzalez Jr., DO [address] [place] [phone] ReferringInternal Exjyslsx12/18/24 Ghislaine Thakur RN [address] [place] [address] Specialty Care CoordinatorHematology/Oncology08/31/24 Isaac Gracia MD [address] [facility] [place] [address] PhysicianHematology/Oncology08/31/24 Dianne Keller APRN.STAFF APPRAISER [address] [place] [address] Hospice & Palliative Medicine08/31/24 Danielle Castellon LSW Social Worker09/29/24 Ramone Marcos RN Specialty Care CoordinatorHospice & Palliative Ksyhvaly95/13/25documented as of this encounter
--- OUTSIDE RECORDS SUMMARY | 2025-07-11 13:00 | XMS_ITS | Encounter Summary ---
Author Organization [facility] Address [address] [place] [id number] Care Team Providers Care Telephone Claims Representative Name Role Phone Lisa Carson DO, Charles Lewis Primary Care Provi heladio Lisa Carson DO, Charles Lewis Unavailable [phone] Ghislaine Thakur RN Unavailable [phone] Nicholas Gracia MD Unavailable [phone] Dianne Keller APRN.DEPUTY ADMINISTRATOR Unavailable + Danielle Castellon Unavailable Unavailable Ramone Marcos RN Unavailable Unava ilable Source Comments In the event this information is protected by the Federal Confidentiality of Alcohol and Drug AbusePatient Records regulations: The Federal rules restrict any use of the information to criminally investigate or prosecute any alcohol or drug abuse patient.[facility] Reason for Referral * MRI/CT (Routine) - ClosedSpecialtyDiagnoses / ProceduresReferred By Contact Referred To ContactCT IMAGING Diagnoses Localized enlarged lymph nodes Procedures CT NECK SOFT TISSUE W IVCON CT SOFT TISSUE NECK W/CONTRAST MATERIAL Vicki Soriano APRN.DEPUTY ADMINISTRATOR [address] [place] [address] Phone: tel: fax: [place] [address] Referral IDStatusReasonStart DateExpiration DateVisits RequestedVisits [id number] Auto-Generated Referral Reason for Visit * ReasonCommentsLung CancerTreatment visit Encounter Details DateTypeDepartmentCare Team (Latest Contact Info)Rqkfrsmsdym36/23/2025 1:00 PM ESTVisit (SP) Office Hematology/Oncology [address] [place] [address] Vicki Soriano APRN.DEPUTY ADMINISTRATOR [address] [place] [address] [place] [address] Malignant neoplasm of overlapping sites of right lung (HCC) (Primary Dx); Metastatic cancer to bone (HCC); Hypothyroidism due to medication; 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); Localized enlarged lymph nodes Social History Tobacco UseTypesPacks/DayYears UsedDateSmoking Tobacco: FormerCigarettes1.518 07/20/1981 - 07/20/1999Smokeless Tobacco: NeverAlcohol UseStandard Drinks/Week CommentsNo0 (1 standard drink = 0.6 oz pure alcohol)PHQ-2AnswerDate RecordedPHQ- 2 kpbme642/16/2025Area Deprivation IndexAnswerDate RecordedNational Score (1- 100), lower number is lower uuwd939604/10/2023State Score (1-10), lower number is lower hfli4963Data from: https://www.neighborhoodatlas.medicine.[facility].edu/. Last address used for [address]3CommentsNoSex and Gender Information ValueDate RecordedSex Assigned at BirthNot on fileLegal EtuBgydxw30/02/2012 9:48 AM ESTGender XywvcvzsPvpfme08/26/2022 11:07 AM EDTSexual OrientationNot on file OccupationIndustryJob Start DateJob End DatedisabledNot on fileNot on fileNot on filedocumented as of this encounter Last Filed Vital Signs Vital SignReadingTime TakenCommentsBlood Rqadtbma139/6507/11/2025 12:52 PM EST Tmttf815707/11/2025 12:52 PM MRPYwjzhpahqkz04.4 ??C (97.6 ??F)07/11/2025 12:52 PM ESTRespiratory Dqhz642209/11/2024 12:52 PM ESTOxygen Tqlvspjgru23%07/11/2025 12:52 PM ESTInhaled Oxygen Concentration--Ncqcof28.6 kg (168 lb 14 oz)07/11/2025 12:52 PM GLKYpyqsm661 cm (5' 8.11 )07/11/2025 12:52 PM ESTBody Mass Index25.59 07/11/2025 12:52 PM ESTdocumented in this encounter Functional Status * Are you deaf or do you have serious difficulty hearing?AnswerDate of UndnvkilljBksuzvNne47/27/2015 12:58 PM Penny Wills MA * Are you blind or do you have serious difficulty seeing, even when wearing glasses?AnswerDate of AfgetseedcJfprcxPyd06/27/2015 12:58 PM Penny Wills MA * Do you have serious difficulty walking or climbing stairs?AnswerDate of YrteksdlyhMkylflDl23/27/2015 12:58 PM Penny Wills MA * Do you have difficulty dressing or bathing?AnswerDate of AssessmentAuthorNo 09/15/2014 12:58 PM Penny Wills MA * Because of a physical, mental, or emotional condition, do you have difficulty doing errands alone such as visiting a doctor's office or shopping?AnswerDate of GhxhnqrejvCbyqeqIln16/27/2015 12:58 PM Penny Wills MA documented as of this encounter Mental Status * Because of a physical, mental, or emotional condition, do you have serious difficulty concentrating, remembering, or making decisions?AnswerEntry Date UeaksnMs38/27/2015 12:58 PM Penny Wills MA documented in this encounter Progress Notes * Vicki Soriano APRN.DEPUTY ADMINISTRATOR - 07/11/2025 1:08 PM EST Images from the original note were not included. PATIENT NAME: Ofe Stephenson CLINIC NO.: [id number] ATTENDING PHYSICIAN: Nicholas Gracia MD DATE OF SERVICE: 07/11/25 Some of the elements of this note have been copied from my previous progress note dated 07/05/2025 All the information has been reviewed carefully. [...] with Dr. Cuevas from rad onc at [facility] who recommended palliative RT closer to home, at [facility]. Venus is a former smoker, [...] headache, unsteady gait - No other complaints. 07/11/2025: The patient is a 69-year-old female with a history of a brainstem tumor resection in 2009, presenting for evaluation of a firm, painful right lower cervical lesion following biopsy and to start new treatment. The patient underwent a biopsy of a right lower cervical lesion on 06/23 or 06/24. Since the biopsy, the site has become firm and painful, with persistent deep pain. Initially, the site oozed blood, which later became serous drainage. She reports visible skin at the site. She took amoxicillin 500 mg for 6 days, starting with 2 tablets on the first day, due to concern for infection when the drainage appeared green. She used antibiotics prescribed for her ???s knees. She deniesfever or chills. She reports that the lesion was not painful about 1.5 months ago, but now causes significant discomfort and neck stiffness. She also reports headaches for about 1 month, with a brain MRI scheduled for 07/24. She has experienced blurry vision and whole-body shaking since her last immunotherapy treatment on 05/30. She notes that her symptoms have worsened since stopping treatment and that recent scans showed disease progression. For pain, she takes oxycodone 10 mg every 6 hours, ibuprofen every other day, and Tylenol with eachdose. She prefers Dilaudid over morphine, which she finds ineffective. She is not diabetic. She reports intermittent lower extremity swelling for several months, which she manages with leg elevation at night. She also reports occasional epistaxis with clotting during her last treatment. Sheis not on anticoagulants. She denies fevers. 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 Positive mouth/tongue sores. RESPIRATORY: Negative for cough, wheezing and shortness of breath. CARDIOVASCULAR: Negative for chest pain, leg swelling and palpitations. GI: Negative for abdominal discomfort, blood in stools or black stools and change in bowel habits. : Negative for dysuria, frequency and incontinence. MUSCULOSKELETAL: +bone pain after chemo. SKIN: Negative for lesions, rash, and itching. HEMATOLOGY/LYMPHOLOGY Negative for prolonged bleeding, bruising easily. Positive right cervical swollen nodes. NEURO: Negative for numbness or tingling of hands/feet. No weakness. All negative except mentioned in HPI. PHYSICAL EXAMINATION: BP 135/69 Pulse 71 Temp 36.2 ??C (97.2 ??F) (Temporal) Resp 16 Ht 172 cm (5' 7.72 ) Wt 84.1 kg (185 lb 6.5 oz) LMP 05/24/2007 SpO2 99% BMI 28.43 kg/m?? General appearance:ECOG PERFORMANCE STATUS: ECOG PS- 1. General: Alert and oriented, no distress, pleasant and cooperative. Positive chronic facial droop. Oropharynx: thrush noted to buccal mucosal. Heart: Regular, normal S1 and S2, no murmurs, rubs, or gallops. Lungs: Clear to auscultation bilaterally. Abdomen: Benign. Extremities: Feet/ankles without edema; left ankle with edema-chronic. Lymph:Large approximately 3-4 cm fixed firm nodule in right lower cervical chain. LABS: Glucose (mg/dL) Date Value 07/11/2025 99 12/24/2009 157 Potassium (mmol/L) Date Value 07/11/2025 4.1 12/24/2009 4.1 Sodium (mmol/L) Date Value 07/11/2025 139 12/24/2009 140 Chloride (mmol/L) Date Value 07/11/2025 99 12/24/2009 104 CO2 (mmol/L) Date Value 07/11/2025 29 12/24/2009 22 Creatinine (mg/dL) Date Value 07/11/2025 0.54 12/24/2009 0.52 BUN (mg/dL) Date Value 07/11/2025 15 12/24/2009 13 Anion Gap (mmol/L) Date Value 07/11/2025 11 12/24/2009 14 Calcium (mg/dL) Date Value 12/24/2009 9.1 Calcium, Total (mg/dL) Date Value 07/11/2025 9.3 Protein, Total (g/dL) Date Value 07/11/2025 6.6 Albumin (g/dL) Date Value 07/11/2025 3.3 Bilirubin, Total (mg/dL) Date Value 07/11/2025 0.2 Alkaline Phosphatase (U/L) Date Value 07/11/2025 98 AST (U/L) Date Value 07/11/2025 12 ALT (U/L) Date Value 07/11/2025 13 WBC Date Value Ref Range Status 07/11/2025 12.50 (H) 3.70 - 11.00 k/uL Final RBC Date Value Ref Range Status 07/11/2025 3.71 (L) 3.90 - 5.20 m/uL Final Hemoglobin Date Value Ref Range Status 07/11/2025 10.4 (L) 11.5 - 15.5 g/dL Final Hematocrit Date Value Ref Range Status 07/11/2025 34.1 (L) 36.0 - 46.0 % Final MCV Date Value Ref Range Status 07/11/2025 91.9 80.0 - 100.0 fL Final MCH Date Value Ref Range Status 07/11/2025 28.0 26.0 - 34.0 pg Final MCHC Date Value Ref Range Status 07/11/2025 30.5 30.5 - 36.0 g/dL Final RDW-CV Date Value Ref Range Status 07/11/2025 18.1 (H) 11.5 - 15.0 % Final Platelet Count Date Value Ref Range Status 07/11/2025 426 (H) 150 - 400 k/uL Final MPV Date Value Ref Range Status 07/11/2025 9.2 9.0 - 12.7 fL Final Abs Neut Date Value Ref Range Status 07/11/2025 10.06 (H) 1.45 - 7.50 k/uL Final Lymphocytes % Date Value Ref Range Status 07/11/2025 8.1 % Final Abs Lymph Date Value Ref Range Status 07/11/2025 1.01 1.00 - 4.00 k/uL Final Monocytes % Date Value Ref Range Status 07/11/2025 8.2 % Final Abs [place] Date Value Ref Range Status 07/11/2025 1.03 (H) <0.87 k/uL Final Eosin% Date Value Ref Range Status 04/25/2025 3.0 % Final Abs Eosin Date Value Ref Range Status 07/11/2025 0.30 <0.46 k/uL Final Basophils % Date Value Ref Range Status 07/11/2025 0.3 % Final Abs Baso Date Value Ref Range Status 07/11/2025 0.04 <0.11 k/uL Final PATH: FINAL DIAGNOSIS A. [...] Hold off on Xgeva until the dental clearance. - PET scan on 11/15/24 after 3 [...] similar morphology to the metastasis evaluated previously ([id number]).Immunohistochemical stains for p40 and TTF in this sample are negative, while a mucin stain is positive. The combined morphology and staining pattern suggest a common primary for the metastases, likely originating from the imaged lung mass - We will start her on fourth line gemcitabine single agent chemotherapy. - Start cycle 1 day 1 gemcitabine today. - Consent signed. The risks, benefits and side effects were discussed at length with the patient and her . - Ordered MRI brain to rule out brain mets. - Scheduled 07/24/2025. - HER2 IHC on the lymph node biopsy was negative. - Refer to the main [place] for a second opinion regarding any kind of clinical trials or further treatment options. - Ordered CT neck. - Referral to radiation. - All her questions answered in detail. - F/u in 1 week. Vicki Soriano APRN.CNP Hematology and Oncology Services Provided at: [place], [place] CC: I spent a total of 30 minutes on the date of the service which included preparing to see the patient, wpab-om-zcmz patient care, completing clinical documentation, performing a medically appropriate examination, counseling and educating the patient/family/caregiver, ordering medications, tests, or p rocedures, independently interpreting results (not separately reported), communicating results to the patient/family/caregiver, and care coordination (not separately reported). documented in this encounter Plan of Treatment DateTypeDepartmentCare Team (Latest Contact Info)Imuyujhsnmt20/30/2025 2:15 PM ESTOffice Visit [facility] [address] [place] [address] [place] [address] follow up donsfxnpzos71/ 2:30 PM ESTVisit (SP) Office Hematology/Oncology [address] [place] [address] Vicki Soriano, AGRONOMIST.DEPUTY ADMINISTRATOR [address] [place] [address] follow up fgywavfspcb73/30/2025 3:00 PM [facility] [address] [place] [address] follow up idmorvfodjs34/31/2025 1:[address] [facility] Hematology/[place] [address] Luis M Silvestre DO [address] [place] [address] VV FOLLOW UP07/25/2025 1:15 PM ESTOffice Visit [facility] [address] [place] [address] lab follow up and chemotx Zrnmfj4007/25/2025 1:40 PM ESTVisit (SP) Office Hematology/Oncology [address] [place] [address] Miguel Sheridan MD [address] [place] [address] lab follow up and chemotx Ryatsz5407/25/2025 2:30 PM [facility] Hematology/Oncology [address] [place] [address] [place] [address] lab follow up and chemotx Otibtc3208/29/2025 10:30 AM ESTOffice Visit Palliative Medicine [address] [place] [address] Dianne Keller, AGRONOMIST.DEPUTY ADMINISTRATOR [address] [place] [address] 3 month follow up09/19/2025 1:40 PM ESTOffice Visit Endocrinology [address] [place], [place] [id number] Shawna Card MD, PhD [address] [place], [place] [id number] Return in about 6 months (around 09/14/2025).NameTypePriorityAssociated Diagnoses Order ScheduleCOMPLETE BLOOD COUNT AND DIFFERENTIALLabRoutine Malignant neoplasm of overlapping sites of right lung (HCC) Metastatic cancer to bone (HCC) Hypothyroidism due to medication 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) Localized enlarged lymph nodes Expected: 07/15/2025, Expires: 10/14/2025OMPREHENSIVE METABOLIC PANELLabRoutine Malignant neoplasm of overlapping sites of right lung (HCC) Metastatic cancer to bone (HCC) Hypothyroidism due to medication 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) Localized enlarged lymph nodes Expected: 07/15/2025, Expires: 10/14/2025documented as of this encounter Results * CT NECK SOFT TISSUE W IVCON (07/12/2025 8:38 AM EST)Anatomical Region LateralityModalityNeckNuclear Medicine, Nuclear MedicineSpecimen (Source) Anatomical Location / LateralityCollection Method / VolumeCollection Time Received Time07/12/2025 8:38 AM EST Impressions 07/12/2025 9:49 AM EST IMPRESSION: 1. ??Interval progression of cervical lymphadenopathy since 06/13/2025 as detailed above. 2. ??Interval progression of the left upper lobe mass and stable pleural thickening and airspace opacity in the right upper lobe since 06/13/2025. Transcribe Date/Time: Jul 12 2025 ??9:18A Dictated by: AIRAM PONCE MD This examination was interpreted and the report reviewed and electronically signed by: AIRAM PONCE MD on Jul 12 2025 ??9:47AM ??EST Thank you for allowing us to participate in the care of your patient. Should there be any questions regarding this interpretation, please call [phone]. If you are unable to reach us at the number above, please feel free to contact [facility] at [phone]. Narrative 07/12/2025 9:49 AM EST * * *Final Report* * * DATE OF EXAM: Jul 12 2025 ??8:38AM ?? NRC ?? 0013 ??- ??CT NECK SOFT TISSUE W IVCON ??/ PROCEDURE REASON: Localized enlarged lymph nodes ? * * * * Physician Interpretation * * * * RESULT: CT NECK SOFT TISSUE W IVCON CLINICAL HISTORY: Metastatic squamous cell carcinoma of the lung. ??Right neck mass. TECHNIQUE: ??A series of contiguous helical scans were performed from the skull base to the aortic arch with intravenous contrast. ??Supplemental: N/A Contrast: ??Omnipaque 350. Contrast Dose: ??100 cc Route of Administration: ??IV CT Radiation dose: Integrated Dose-length product (DLP) for this visit = ?? 477 mGy*cm. CT Dose Reduction Employed: Automated exposure control (AEC) COMPARISON: 06/13/2025 RESULT: Localizer images: No additional findings. Postoperative/Treatment Change: There is somewhat more prominent subcutaneous edema in the right supraclavicular region and right anterior chest wall, likely related to prior radiation therapy. There also continues to be mild disruption of the normal soft tissue planes in the region of the right parotid gland, right parapharyngeal space and along the margins of the right sternocleidomastoid muscle with multiple surgical clips suggesting prior lymph node dissection. Aerodigestive tract: Normal. Major salivary glands: Slight disruption of normal soft tissue planes along the tail of the right parotid gland with adjacent surgical clips suggesting prior lymph node dissection. ??There continues to be attenuation of the right submandibular gland, likely related to prior radiation therapy. ??The left parotid and submandibular glands remain normal in appearance. Thyroid gland: Again noted is asymmetric enlargement of the left lobe of the thyroid gland is slightly lobulated configuration but uniform enhancement. ??A small nodule is noted in the right lobe of the thyroid gland measuring 1.2 cm in diameter but this requires no additional follow-up based on current guidelines. Lymph Nodes: There has been mild interval increase in size of the large, necrotic lymph node in the caudal aspect right posterior triangle since the prior study, currently measuring approximately 5.2 x 5.7 x 5.1 cm in greatest AP, transverse, and CC dimensions, respectively. ??This mass again abuts the right levator scapula muscle and the scalene muscles but appears to lie cephalad to the region of the right brachial plexus. ?? There has also been mild interval increase in size of similar smaller lymph nodes in the right axilla, now measuring up to 1.7 x 1.2 cm in short axis. ??Smaller lymph nodes are again noted in levels IV and V ventral and inferior to the dominant lymph node mass which have also increased in size, currently measuring up to 1.1 cm in short axis. Carotid/Parapharyngeal/Retropharyngeal Spaces: There is slight disruption of the soft tissue planes along the right carotid sheath compatible with the prior surgery. ??There is uniform enhancement of the internal jugular veins and cervical carotid arteries suggesting patency. Orbits, Face and Skull Base: A lid weight overlies the right orbit. ??The soft tissue planes of the orbits are otherwise maintained. ??The paranasal sinuses, mastoid air cells and middle ear cavities are clear with the exception of minimal mucosal thickening in the right maxillary antrum. ?? No evidence of a lytic or blastic process in the skull base. Imaged intracranial contents: No intracranial mass effect or hydrocephalus. The visualized brain parenchyma is within normal limits. Cervical spine and remaining osseous structures: No osteolytic or osteoblastic process. ??A mixed lytic and sclerotic process is again noted in the right glenoid and coracoid process compatible with the known bony metastasis but this is only marginally included in the nrkzf-cw-gjjj on the planar reconstructions. Lung apices: There has been interval increase in size of the large mass in the left upper lobe since the prior study reflecting progression of the primary neoplasm. ??No clear evidence of adjacent bony destruction. ?? Mild irregular pleural thickening and air space opacity is again noted along the lateral margins of the right upper lobe which was positioned hypometabolic on the prior PET study.. Other: Not applicable. Procedure Note Provider, [facility] - 07/12/2025 * * *Final Report* * * DATE OF EXAM: Jul 12 2025 8:38AM [facility] 0013 - CT NECK SOFT TISSUE W IVCON / PROCEDURE REASON: Localized enlarged lymph nodes * * * * Physician Interpretation * * * * RESULT: CT NECK SOFT TISSUE W IVCON CLINICAL HISTORY: Metastatic squamous cell carcinoma of the lung. Right neck mass. TECHNIQUE: A series of contiguous helical scans were performed from the skull base to the aortic arch with intravenous contrast. Supplemental: N/A Contrast: Omnipaque 350. Contrast Dose: 100 cc Route of Administration: IV CT Radiation dose: Integrated Dose-length product (DLP) for this visit = 477 mGy*cm. CT Dose Reduction Employed: Automated exposure control (AEC) COMPARISON: 06/13/2025 RESULT: Localizer images: No additional findings. Postoperative/Treatment Change: There is somewhat more prominent subcutaneous edema in the right supraclavicular region and right anterior chest wall, likely related to prior radiation therapy. There also continues to be mild disruption of the normal soft tissue planes in the region of the right parotid gland, right parapharyngeal space and along the margins of the right sternocleidomastoid muscle with multiple surgical clips suggesting prior lymph node dissection. Aerodigestive tract: Normal. Major salivary glands: Slight disruption of normal soft tissue planes along the tail of the right parotid gland with adjacent surgical clips suggesting prior lymph node dissection. There continues to be attenuation of the right submandibular gland, likely related to prior radiation therapy. The left parotid and submandibular glands remain normal in appearance. Thyroid gland: Again noted is asymmetric enlargement of the left lobe of the thyroid gland is slightly lobulated configuration but uniform enhancement. A small nodule is noted in the right lobe of the thyroid gland measuring 1.2 cm in diameter but this requires no additional follow-up based on current guidelines. Lymph Nodes: There has been mild interval increase in size of the large, necrotic lymph node in the caudal aspect right posterior triangle since the prior study, currently measuring approximately 5.2 x 5.7 x 5.1 cm in greatest AP, transverse, and CC dimensions, respectively. This mass again abuts the right levator scapula muscle and the scalene muscles but appears to lie cephalad to the region of the right brachial plexus. There has also been mild interval increase in size of similar smaller lymph nodes in the right axilla, now measuring up to 1.7 x 1.2 cm in short axis. Smaller lymph nodes are again noted in levels IV and V ventral and inferior to the dominant lymph node mass which have also increased in size, currently measuring up to 1.1 cm in short axis. Carotid/Parapharyngeal/Retropharyngeal Spaces: There is slight disruption of the soft tissue planes along the right carotid sheath compatible with the prior surgery. There is uniform enhancement of the internal jugular veins and cervical carotid arteries suggesting patency. Orbits, Face and Skull Base: A lid weight overlies the right orbit. The soft tissue planes of the orbits are otherwise maintained. The paranasal sinuses, mastoid air cells and middle ear cavities are clear with the exception of minimal mucosal thickening in the right maxillary antrum. No evidence of a lytic or blastic process in the skull base. Imaged intracranial contents: No intracranial mass effect or hydrocephalus. The visualized brain parenchyma is within normal limits. Cervical spine and remaining osseous structures: No osteolytic or osteoblastic process. A mixed lytic and sclerotic process is again noted in the right glenoid and coracoid process compatible with the known bony metastasis but this is only marginally included in the gcgwr-di-fxyx on the planar reconstructions. Lung apices: There has been interval increase in size of the large mass in the left upper lobe since the prior study reflecting progression of the primary neoplasm. No clear evidence of adjacent bony destruction. Mild irregular pleural thickening and air space opacity is again noted along the lateral margins of the right upper lobe which was positioned hypometabolic on the prior PET study.. Other: Not applicable. IMPRESSION IMPRESSION: 1. Interval progression of cervical lymphadenopathy since 06/13/2025 as detailed above. 2. Interval progression of the left upper lobe mass and stable pleural thickening and airspace opacity in the right upper lobe since06/13/2025. Transcribe Date/Time: Jul 12 2025 9:18A Dictated by: AIRAM PONCE MD This examination was interpreted and the report reviewed and electronically signed by: AIRAM PONCE MD on Jul 12 2025 9:47AM EST Thank you for allowing us to participate in the care of your patient. Should there be any questions regarding this interpretation, please call [phone]. If you are unable to reach us at the number above, please feel free to contact [facility] at [phone]. 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) Localized enlarged lymph nodes Enlargement of lymph nodes Localized enlarged lymph nodes Enlargement of lymph nodes documented in this encounter Care Teams Team MemberRelationshipSpecialtyStart DateEnd Date Valone, Gerson Freedom Jr., DO [address] [place] [phone] PCP - General08/24/01 Gerson Gonzalez Jr., DO [address] [place] [phone] ReferringInternal Xukqwdfm08/18/24 Ghislaine Thakur RN [address] [place] [address] [place] [address] Specialty Care CoordinatorHematology/Oncology08/31/24 Nicholas Gracia MD [address] [place] [address] [place] [address] PhysicianHematology/Oncology08/31/24 Dianne Keller APRN.DEPUTY ADMINISTRATOR [address] [place] [address] [place] [address] Hospice & Palliative Medicine08/31/24 Danielle Castellon LSW Social Worker09/29/24 Ramone Marcos RN Specialty Care CoordinatorHospice & Palliative Nopxqmnd34/13/25documented as of this encounter
--- OUTSIDE RECORDS SUMMARY | 2025-07-11 13:30 | XMS_ITS | Encounter Summary ---
Author Organization [facility] Address [address] [place] [address] Care Team Providers Care Clinical Care Manager Name Role Phone Lisa Carson DO, Charles Lewis Primary Care Provi heladio Lisa Carson DO, Charles Lewis Unavailable [phone] Ghislaine Thakur RN Unavailable [phone] Nicholas Gracia MD Unavailable [phone] Dianne Keller APRN.NATURAL RESOURCES MANAGER Unavailable + Danielle Castellon Unavailable Unavailable Ramone Marcos RN Unavailable Unava ilable Source Comments In the event this information is protected by the Federal Confidentiality of Alcohol and Drug AbusePatient Records regulations: The Federal rules restrict any use of the information to criminally investigate or prosecute any alcohol or drug abuse patient.[facility] Reason for Visit * [place] Prior Authorization (Routine) - ClosedSpecialtyDiagnoses / Procedures Referred By ContactReferred To Contact Diagnoses Malignant neoplasm of overlapping sites of right lung (HCC) Nicholas Gracia MD [address] [place] [address] [place] [address] Phone: tel: fax: Hematology/Oncology [address] [place] [address] [place] [address] Phone: tel: fax: Referral IDStatusReasonStart DateExpiration DateVisits RequestedVisits [id number] Encounter Details DateTypeDepartmentCare Team (Latest Contact Info)Qglzbztdsag37/23/2025 1:30 PM ESTInffirsthealth [facility]/Oncology [address] [place] [address] [place] [address] Malignant neoplasm of overlapping sites of right lung (HCC) (Primary Dx) Social History Tobacco UseTypesPacks/DayYears UsedDateSmoking Tobacco: FormerCigarettes1.518 07/20/1981 - 07/20/1999Smokeless Tobacco: NeverAlcohol UseStandard Drinks/Week CommentsNo0 (1 standard drink = 0.6 oz pure alcohol)PHQ-2AnswerDate RecordedPHQ- 2 qpwlu090/16/2025Area Deprivation IndexAnswerDate RecordedNational Score (1- 100), lower number is lower hjzz262104/10/2023State Score (1-10), lower number is lower likh0493Data from: https://www.neighborhoodatlas.medicine.[facility].edu/. Last address used for [address]CommentsNoSex and Gender Information ValueDate RecordedSex Assigned at BirthNot on fileLegal DajRtohde13/02/2012 9:48 AM ESTGender JtigtbtwGudhta98/26/2022 11:07 AM EDTSexual OrientationNot on file OccupationIndustryJob Start DateJob End DatedisabledNot on fileNot on fileNot on filedocumented as of this encounter Last Filed Vital Signs Vital SignReadingTime TakenCommentsBlood Pressure--Pulse--Temperature-- Respiratory Rate--Oxygen Saturation--Inhaled Oxygen Concentration--Oltell02.6 kg (168 lb 14 oz)07/11/2025 1:53 PM NWCPhlfom473.5 cm (5' 8.31 )07/11/2025 1:53 PM ESTverified by 2RNsBody Mass Index25.45109/11/2024 1:53 PM ESTdocumented in this encounter Functional Status * Are you deaf or do you have serious difficulty hearing?AnswerDate of LapleggdpiTmaeflPdx72/27/2015 12:58 PM Penny Wills MA * Are you blind or do you have serious difficulty seeing, even when wearing glasses?AnswerDate of BktcovktmxVhekgtKpj20/27/2015 12:58 PM Penny Wills MA * Do you have serious difficulty walking or climbing stairs?AnswerDate of RdifrxuabeZtqvuuYr98/27/2015 12:58 PM Penny Wills MA * Do you have difficulty dressing or bathing?AnswerDate of AssessmentAuthorNo 09/15/2014 12:58 PM Penny Wills MA * Because of a physical, mental, or emotional condition, do you have difficulty doing errands alone such as visiting a doctor's office or shopping?AnswerDate of XxlbnxoewuWliraoIrz67/27/2015 12:58 PM Penny Wills MA documented as of this encounter Mental Status * Because of a physical, mental, or emotional condition, do you have serious difficulty concentrating, remembering, or making decisions?AnswerEntry Date LeqmaxIm94/27/2015 12:58 PM Penny Wills MA documented in this encounter Plan of Treatment DateTypeDepartmentCare Team (Latest Contact Info)Tluwrdvaogz53/30/2025 2:15 PM ESTOffice Visit [facility] [address] [place] [address] [place] [address] follow up vldttovsmkf29/30/2025 2:30 PM ESTVisit (SP) Office Hematology/Oncology [address] [place] [address] Vicki Soriano, STEAM DRIER OPERATOR.NATURAL RESOURCES MANAGER [address] [place] [address] follow up efyoqzpqlct97/30/2025 3:00 PM ESTInffirsthealth [facility] Hematology/Oncology [address] [place] [address] [place] [address] follow up hunyjbtaoep52/31/2025 1:[address] [facility] Hematology/Oncology [address] [place] [address] Luis M Silvestre DO [address] [place] [address] VV FOLLOW UP07/25/2025 1:15 PM ESTOffice Visit [facility] [address] [place] [address] [place] [address] lab follow up and chemotx Diewtg8707/25/2025 1:40 PM ESTVisit (SP) Office Hematology/Oncology [address] [place] [address] [place] [address] Miguel Sheridan MD [address] [place] [address] [place] [address] lab follow up and chemotx Kkmoyo5207/25/2025 2:30 PM [facility] Hematology/Oncology [address] [place] [address] [place] [address] lab follow up and chemotx Ssfbbw7908/29/2025 10:30 AM ESTOffice Visit Palliative Medicine [address] [place] [address] [place] [address] Dianne Keller, STEAM DRIER OPERATOR.NATURAL RESOURCES MANAGER [address] [place] [address] 3 month follow up09/19/2025 1:40 PM ESTOffice Visit Endocrinology [address] [facility] [place] [address] Shawna Card MD, PhD [address] [place] [address] Return in about 6 months (around 09/14/2025).documented [...] of overlapping sites of right lung (HCC)New Bag/Syringe/Asqnef8007/11/2025 2:34 PM EST1,920 mg ondansetron (PF) 8 mg injection (ZOFRAN) 8 mg, INTRAVENOUS, ONCE, 1 dose, On Thu07/11/25 at 1430 Indications:Malignant neoplasm of overlapping sites of right lung (HCC)Given 07/11/2025 2:13 PM EST8 mgdocumented in this encounter Care Teams Team MemberRelationshipSpecialtyStart DateEnd Gerson Gonzalez Jr., DO [address] [place] [address] PCP - General08/24/01 Gerson Gonzalez Jr., DO [address] [place] [address] ReferringInternal Vkzqebae32/18/24 Ghislaine Thakur RN [address] [place] [address] Specialty Care CoordinatorHematology/Oncology08/31/24 Nicholas Gracia MD [address] [place] [address] [place] [address] PhysicianHematology/Oncology08/31/24 Dianne Keller APRN.NATURAL RESOURCES MANAGER [address] [facility] [place] [address] Hospice & Palliative Medicine08/31/24 Danielle Castellon LSW Social Worker09/29/24 Ramone Marcos, RN Specialty Care CoordinatorHospice & Palliative Aslbbrvb52/13/25documented as of this encounter
--- OUTSIDE RECORDS SUMMARY | 2025-07-12 08:10 | XMS_ITS | Encounter Summary ---
Author Organization [facility] Address [address] [place] [address] Care Team Providers Care Cafeteria Cook Name Role Phone Lisa Carson DO, Charles Lewis Primary Care Provi heladio Lisa Carson DO, Charles Lewis Unavailable [phone] Ghislaine Thakur RN Unavailable [phone] Nicholas Gracia MD Unavailable [phone] Dianne Keller APRN.WORKERS COMPENSATION CLAIMS ASSISTANT Unavailable + Danielle Castellon Unavailable Unavailable Ramone Marcos RN Unavailable Unava ilable Source Comments In the event this information is protected by the Federal Confidentiality of Alcohol and Drug AbusePatient Records regulations: The Federal rules restrict any use of the information to criminally investigate or prosecute any alcohol or drug abuse patient.[facility] Reason for Referral * MRI/CT (Routine) - ClosedSpecialtyDiagnoses / ProceduresReferred By Contact Referred To ContactCT IMAGING Diagnoses Localized enlarged lymph nodes Procedures CT NECK SOFT TISSUE W IVCON CT SOFT TISSUE NECK W/CONTRAST MATERIAL Vicki Soriano, SURESH.WORKERS COMPENSATION CLAIMS ASSISTANT [address] [place] [address] Phone: tel: fax: [place] [address] Referral IDStatusReasonStart DateExpiration DateVisits RequestedVisits [id number] Auto-Generated Referral Reason for Visit * ReasonCommentsRadiology CT * MRI/CT (Routine) - ClosedSpecialtyDiagnoses / ProceduresReferred By Contact Referred To ContactCT IMAGING Diagnoses Localized enlarged lymph nodes Procedures CT NECK SOFT TISSUE W IVCON CT SOFT TISSUE NECK W/CONTRAST MATERIAL Vicki Soriano APRN.WORKERS COMPENSATION CLAIMS ASSISTANT [address] [place] [address] Phone: tel: fax: [place] [address] Referral IDStatusReasonStart DateExpiration DateVisits RequestedVisits [id number] Auto-Generated Referral Encounter Details DateTypeDepartmentCare Team (Latest Contact Info)Pbxovlqjagx78/24/2025 8:10 AM EST - 07/12/2025 11:59 PM ESTHospital Encounter Radiology Pet CT [address] [place] [address] Localized enlarged lymph nodes [R59.0] Discharge Disposition: Home Social History Tobacco UseTypesPacks/DayYears UsedDateSmoking Tobacco: FormerCigarettes1.518 07/20/1981 - 07/20/1999Smokeless Tobacco: NeverAlcohol UseStandard Drinks/Week CommentsNo0 (1 standard drink = 0.6 oz pure alcohol)PHQ-2AnswerDate RecordedPHQ- 2 /16/2025Area Deprivation IndexAnswerDate RecordedNational Score (1- 100), lower number is lower noiy525404/10/2023State Score (1-10), lower number is lower uyng5103Data from: https://www.neighborhoodatlas.[facility]/. Last address used for [address]3CommentsNoSex and Gender Information ValueDate RecordedSex Assigned at BirthNot on fileLegal YynUmeivy22/02/2012 9:48 AM ESTGender NdomzowmTsiyke55/26/2022 11:07 AM EDTSexual OrientationNot on file OccupationIndustryJob Start DateJob End DatedisabledNot on fileNot on fileNot on filedocumented as of this encounter Functional Status * Are you deaf or do you have serious difficulty hearing?AnswerDate of IgyenpyetxUwynydYwr45/27/2015 12:58 PM Penny Wills MA * Are you blind or do you have serious difficulty seeing, even when wearing glasses?AnswerDate of MycnflrlzvPsrofnNyw58/27/2015 12:58 PM Penny Wills MA * Do you have serious difficulty walking or climbing stairs?AnswerDate of BngldzcwiiVywylmZq14/27/2015 12:58 PM Penny Wills MA * Do you have difficulty dressing or bathing?AnswerDate of AssessmentAuthorNo 09/15/2014 12:58 PM Penny Wills MA * Because of a physical, mental, or emotional condition, do you have difficulty doing errands alone such as visiting a doctor's office or shopping?AnswerDate of NcvihovrvyHmixdwCtd48/27/2015 12:58 PM Penny Wills MA documented as of this encounter Mental Status * Because of a physical, mental, or emotional condition, do you have serious difficulty concentrating, remembering, or making decisions?AnswerEntry Date HegokjCz36/27/2015 12:58 PM Penny Wills MA documented in [...] mg tablet PLEASE SEE ATTACHED FOR DETAILED BLOFUNQUCJ35/26/2025 loratadine (CLARITIN) 10 mg tablet Loratadine 10 mg tablet Active 10 MG PO February 06, 2025 12:00am Complies with drug jhygtfy6102/06/2025 levothyroxine (SYNTHROID) 75 mcg tablet Indications:Acquired hypothyroidismTake [...] of this encounter Progress Notes * Palak Moran, MEKHI - 07/12/2025 8:15 AM EST Radiology [...] PATIENT PRESENTS WITH AN IMPLANTABLE OR ATTACHED TAMALE MAKER: No RADIOLOGY DEPARTMENT: CT; Exam(s) Completed: Neck . Anesthesia: No PERIPHERAL IV DATA: Site assessment: Clean,Dry and Intact, Site disposition Discontinued SIGNED BY: RT Isa(R) July 12, 2025 8:33 AM documented in this encounter Plan of Treatment DateTypeDepartmentCare Team (Latest Contact Info)Ywxgfayxkym55/30/2025 2:15 PM ESTOffice Visit [facility] [address] [place] [address] [place] [address] follow up boswssiehrs34/30/2025 2:30 PM ESTVisit (SP) Office Hematology/Oncology [address] [place] [address] [place] [address] Vicki Soriano APRN.WORKERS COMPENSATION CLAIMS ASSISTANT [address] [facility] [place] [address] follow up cluojsdpjty45/30/2025 3:00 PM [facility] [address] [facility] [place] [address] follow up /31/2025 1:[address] [facility] Hematology/[place] [address] Luis M Silvestre DO [address] [place] [address] VV FOLLOW UP07/25/2025 1:15 PM ESTOffice Visit [facility] [address] [place] [address] [place] [address] lab follow up and chemotx Oprqnq9207/25/2025 1:40 PM ESTVisit (SP) Office Hematology/Oncology [address] [place] [address] [place] [address] Miguel Sheridan MD [address] [place] [address] [place] [address] lab follow up and chemotx Mxhtnr9907/25/2025 2:30 PM ESTInfusion Center Hematology/Oncology [address] [place] [address] [place] [address] lab follow up and chemotx Ricjfv6608/29/2025 10:30 AM ESTOffice Visit Palliative Medicine [address] [place] [address] [place] [address] Dianne Keller, BUTCHER APPRENTICE.WORKERS COMPENSATION CLAIMS ASSISTANT [address] [place] [address] 3 month follow up09/19/2025 1:40 PM ESTOffice Visit Endocrinology [address] [place], [place] [id number] Shawna Card MD, PhD [address] [place], [place] [id number] Return in about 6 months (around 09/14/2025).documented as of this encounter Procedures Procedure NamePriorityDate/TimeAssociated DiagnosisCommentsCT NECK SOFT TISSUE W XVJDGUbxlopr59/24/2025 8:38 AM EST Localized enlarged lymph nodes documented in this encounter Results * CT NECK SOFT TISSUE W IVCON (07/12/2025 8:38 AM EST)Anatomical Region LateralityModalityNeckNmarietta memorial hospital Medicine, Nuclear MedicineSpecimen (Source) Anatomical Location / [...] any questions regarding this interpretation, please call [phone]. If you are unable to reach us at the number above, please feel free to contact [facility] at [phone]. Narrative 07/12/2025 9:49 AM EST * * [...] this is only marginally included in the jppph-nc-ihnp on the planar reconstructions. Lung apices: There [...] study.. Other: Not applicable. Procedure Note Provider, [facility] Zavalla - 07/12/2025 * * *Final Report* * * DATE OF EXAM: Jul 12 2025 8:38AM [facility] 0013 - CT NECK SOFT TISSUE W [...] this is only marginally included in the ygijj-gw-srpb on the planar reconstructions. Lung apices: There [...] any questions regarding this interpretation, please call [phone]. If you are unable to reach us at the number above, please feel free to contact [facility] eRadiology at [phone]. Authorizing ProviderResult TypeResult StatusHolchris Soriano APRN.CNPCT-PAMAFinal Result documented in this encounter Visit Diagnoses Diagnosis Localized enlarged lymph nodes Enlargement of lymph nodes documented in this encounter Care Teams Team MemberRelationshipSpecialtyStart DateEnd Date Gerson Gonzalez Jr., DO [address] [place] [phone] PCP - General08/24/01 Gerson Gonzalez Jr., DO [address] [place] [address] ReferringInternal Wsubbcml13/18/24 Ghislaine Thakur RN [address] [place] [address] Specialty Care CoordinatorHematology/Oncology08/31/24 Nicholas Gracia MD [address] [place] [address] [place] [address] PhysicianHematology/Oncology08/31/24 Dianne Keller APRN.WORKERS COMPENSATION CLAIMS ASSISTANT [address] [place] [phone] Hospice & Palliative Medicine08/31/24 Danielle Castellon LSW Social Worker09/29/24 Ramone Marcos RN Specialty Care CoordinatorHospice & Palliative Dadzfdwq62/13/25documented as of this encounter
[2025-07-16 15:21] VITALS: BP 120/74; PULSE 103; O2SAT 94; BMI 25.5
[2025-07-16 15:53] LABS: Hematocrit 29.2 % (36.0-48.0); Hemoglobin 8.9 g/dL (12.0-16.0); Mean Corpuscular HGB Conc 30.5 g/dL (29.9-35.2); Mean Corpuscular Hemoglobin 27.8 pg (26.7-34.0); Mean Corpuscular Volume 91.3 fL (81.0-99.0); Platelet Count 257 10^3/uL (150-450); Red Blood Count 3.20 10^6/uL (4.20-5.40); White Blood Count 5.8 10^3/uL (4.0-11.0)
--- OUTSIDE RECORDS SUMMARY | 2025-07-16 16:08 | XMS_ITS | Clinical Summary ---
Author Organization [facility] Address [address] [place] [address] Care Team Providers Care Preparation Plant Repairer Name Role Phone Unavailable Primary Care Provider Unavailabl e Social History Tobacco UseTypesPacks/DayYears UsedDateSmoking Tobacco: Never Assessed CommentsUnknownSex and Gender InformationValueDate RecordedSex Assigned at Not on fileLegal NfrHkpnct13/29/2022 9:53 PM EDTGender IdentityNot on fileSexual OrientationNot on file Plan of Treatment Not on file
--- OUTSIDE RECORDS SUMMARY | 2025-07-16 16:08 | XMS_ITS | Encounter Summary ---
Author Organization [facility] Address [address] [place] [address] Care Team Providers Care Audit Senior Associate Name Role Phone Lisa Carson DO, Charles Lewis Primary Care Provi heladio Lisa Carson DO, Charles Lewis Unavailable [phone] Ghislaine Thakur RN Unavailable [phone] Nicholas Gracia MD Unavailable [phone] Dianne Keller APRN.MANAGER SEMICONDUCTOR Unavailable + Danielle Castellon Unavailable Unavailable Ramone Marcos RN Unavailable Unava ilable Source Comments In the event this information is protected by the Federal Confidentiality of Alcohol and Drug AbusePatient Records regulations: The Federal rules restrict any use of the information to criminally investigate or prosecute any alcohol or drug abuse patient.[facility] Encounter Details DateTypeDepartmentCare Team (Latest Contact Info)Wzmwntnclwm10/18/2025Telephone Hematology/Oncology [address] [place] [address] [place] [address] Danielle Castellon, LIZZY Social History Tobacco UseTypesPacks/DayYears UsedDateSmoking Tobacco: FormerCigarettes1.518 07/20/1981 - 07/20/1999Smokeless Tobacco: NeverAlcohol UseStandard Drinks/Week CommentsNo0 (1 standard drink = 0.6 oz pure alcohol)PHQ-2AnswerDate RecordedPHQ- 2 aizvp1205Area Deprivation IndexAnswerDate RecordedNational Score (1- 100), lower number is lower anjy936304/10/2023State Score (1-10), lower number is lower tdfx4593Data from: https://www.neighborhoodatlas.medicine.[facility].edu/. Last address used for [address] DR3CommentsNoSex and Gender Information ValueDate RecordedSex Assigned at BirthNot on fileLegal LqiGnkzfc75/02/2012 9:48 AM ESTGender BktcpaflJsvcaa20/26/2022 11:07 AM EDTSexual OrientationNot on file OccupationIndustryJob Start DateJob End DatedisabledNot on fileNot on fileNot on filedocumented as of this encounter Functional Status * Are you deaf or do you have serious difficulty hearing?AnswerDate of NxeehufjodGbypqmSub88/27/2015 12:58 PM Penny Wills MA * Are you blind or do you have serious difficulty seeing, even when wearing glasses?AnswerDate of OxndukmwllEypnykOuc75/27/2015 12:58 PM Penny Wills MA * Do you have serious difficulty walking or climbing stairs?AnswerDate of HlynhfvkqhMflxahIi90/27/2015 12:58 PM Penny Wills MA * Do you have difficulty dressing or bathing?AnswerDate of AssessmentAuthorNo 09/15/2014 12:58 PM Penny Wills MA * Because of a physical, mental, or emotional condition, do you have difficulty doing errands alone such as visiting a doctor's office or shopping?AnswerDate of DponslntrlLorzgxZpz74/27/2015 12:58 PM Penny Wills MA documented as of this encounter Mental Status * Because of a physical, mental, or emotional condition, do you have serious difficulty concentrating, remembering, or making decisions?AnswerEntry Date TrwmcsEm14/27/2015 12:58 PM Penny Wills MA documented in this encounter Miscellaneous Notes * Telephone Encounter - Danielle Castellon LSW - 07/06/2025 2:49 PM EST Patient Declined Social Work Assessment Patient's name appears on the PRO [employer] report for a PHQ-9 score of 17 and a positive response toquestion #9. SW called to follow up. No SI/HI. Patient denied any psychosocial needs.Patient's was also on the call. [place] SUICIDE SEVERITY RATING SCALE ERIK Parker documented in this encounter Plan of Treatment DateTypeDepartmentCare Team (Latest Contact Info)Uifebkozxzz67/30/2025 2:15 PM ESTOffice Visit [facility] [address] [place] [address] follow up nynuayijbta73/30/2025 2:30 PM ESTVisit (SP) Office Hematology/Oncology [address] [place] [address] Vicki Soriano APRN.MANAGER SEMICONDUCTOR [address] [facility] [place] [address] follow up zmdbgcryqxp86/30/2025 3:00 [facility] [address] [facility] [place] [address] follow up tklgyrbykrf37/31/2025 1:00 PM [facility] Hematology/[place] [address] Luis M Silvestre DO [address] [place] [address] VV FOLLOW UP07/25/2025 1:15 PM ESTOffice Visit [facility] [address] [place] [address] [place] [address] lab follow up and chemotx Agfoka7707/25/2025 1:40 PM ESTVisit (SP) Office Hematology/Oncology [address] [place] [address] [place] [address] Miguel Sheridan MD [address] [place] [address] [place] [address] lab follow up and chemotx Usdrla8607/25/2025 2:30 PM [facility] Hematology/Oncology [address] [place] [address] [place] [address] lab follow up and chemotx Kqqywo5308/29/2025 10:30 AM ESTOffice Visit Palliative Medicine [address] [place] [address] [place] [address] Dianne Keller, SCALE ASSEMBLY SET UP WORKER.MANAGER SEMICONDUCTOR [address] [place] [address] 3 month follow up09/19/2025 1:40 PM ESTOffice Visit Endocrinology [address] [place], [place] [phone] Shawna Card MD, PhD [address] [place] [address] Return in about 6 months (around 09/14/2025).documented as of this encounter Visit Diagnoses Not on filedocumented in this encounter Care Teams Team MemberRelationshipSpecialtyStart DateEnd Date Gerson Gonzalez Jr., DO [address] [facility] [address] PCP - General08/24/01 Gerson Gonzalez Jr., DO [address] [facility] [place] [address] ReferringInternal Cwzwzbua17/18/24 Ghislaine Thakur RN [address] [place] [address] [place] [address] Specialty Care CoordinatorHematology/Oncology08/31/24 Nicholas Gracia MD [address] [place] [address] [place] [address] PhysicianHematology/Oncology08/31/24 Dianne Keller APRN.MANAGER SEMICONDUCTOR [address] [place] [address] [place] [address] Hospice & Palliative Medicine08/31/24 Danielle Castellon LSW Social Worker09/29/24 Ramone Marcos RN Specialty Care CoordinatorHospice & Palliative Azhavwso55/13/25documented as of this encounter
--- OUTSIDE RECORDS SUMMARY | 2025-07-16 16:08 | XMS_ITS | Clinical Summary ---
Author Organization [facility] Address [id number] [address] [place] [address] Care Team Providers Care Ve Teacher Name Role Phone Lisa Carson DO, Charles L Primary Care Provider Allergies No known active allergies Medications MedicationSigDispense QuantityRefillsLast FilledStart DateEnd DateStatus clonazePAM (KlonoPIN) 0.5 mg tablet Take 0.25 mg by mouth every morning before breakfast.Active calcium carbonate (OS-OBI) 600 mg (1,500 mg) tablet Take 1 tablet (600 mg total) by mouth in the morning and 1 tablet (600 mg total) in the evening. Take with meals.Active cholecalciferol, vitamin D3, (VITAMIN D3) 1,000 units tablet Take 1 tablet (1,000 Units total) by mouth in the morning.Active gabapentin (NEURONTIN) 600 mg tablet Take 300 mg by mouth in the morning.Active pravastatin (PRAVACHOL) 10 mg tablet Take 10 mg by mouth in the morning.02/26/2022ctive ezetimibe (ZETIA) 10 mg tablet Take 10 mg by mouth as needed.10/03/2021ctive FLUoxetine (PROzac) 10 mg capsule TAKE 1 CAPSULE BY MOUTH EVERY DAY FOR 90 DAYS02/26/2022ctive magnesium oxide-Mg AA chelate 300 mg capsule Take 300 mg by mouth.Active propranoloL (INDERAL) 20 mg tablet as needed.07/24/2021ctive levothyroxine (SYNTHROID, LEVOTHROID) 25 MCG tablet TAKE 1 TABLET IN THE MORNING BEFORE A MEAL EVERY DAY03/27/2023ctive docosahexaenoic acid/epa (FISH OIL ORAL) Take by mouth.Active vit A/vit C/vit E/zinc/copper (PRESERVISION AREDS ORAL) Take by mouth.Active carboxymethylcell/hypromellose (GENTEAL GEL OPHT) Instill to eye.Active Active Problems ProblemNoted DateDiagnosed DateDisease of thyroid gland07/20/2017 Overview (10/25/2018): Nodules and goiter, non cancerous Kncakmg0607/20/2016 Overview (10/25/2018): Lost 45 lb..then gained back.. 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 VaricellaStrokeArthritis Overview (10/25/2018): Of neck, knee Family History Medical HistoryRelationNameCommentsStrokeFatherArthur GowitzkaDied from aneurism bleed in brainHypertensionMotherEleanor GowitzkaArthritisSisterRobin KochLots of arthritis issuesHypertensionSisterRobin KochRelationNameStatusCommentsFather Noe GowitzkaMotherEleanor GowitzkaSisterRobin Mohan Social History Tobacco UseTypesPacks/DayYears UsedDateSmoking Tobacco: NrucmqJewlyejhaz6Ugao: 1998Smokeless Tobacco: Never Tobacco Cessation:Counseling Given: Not Answered Alcohol UseStandard Drinks/WeekCommentsNo0 (1 standard drink = 0.6 oz pure alcohol)ChildcareAnswerDate NtmrqyuxItkrikopqMhuxgsg97/12/2019EmploymentAnswer Date IksvzdhgZrgayvnbssHjjryhe73/12/2019Purpose - LifeAnswerDate RecordedPurpose and direction in hczqYxnajyt78/11/2021CommentsUnknownSex and Gender InformationValueDate RecordedSex Assigned at BirthNot on fileLegal SexFemale 02/22/2015 11:34 AM EDTGender IdentityNot on fileSexual OrientationNot on file Last Filed Vital Signs Vital SignReadingTime TakenCommentsBlood Ddnrsstt235/8105 8:57 AM EDT Xvnby215811/19/2015 8:57 AM EDTTemperature--Respiratory Rate--Oxygen Saturation-- Inhaled Oxygen Concentration--Jfjfud23.3 kg (208 lb)10/25/2018 1:17 PM EDTHeight 175.3 cm (5' 9 )10/25/2018 1:17 PM EDTBody Mass Index30.72010/25/2018 1:17 PM EDT Plan of Treatment Health MaintenanceDue DateLast DoneCommentsDepression Qkuahskab51/07/1969Tobacco Ydhuojorp03/07/1969Adult BMI Awkgvbvmn11/07/1975DTaP,Tdap and Td Vaccines (1 - Tdap)09/24/1975Zoster (Shingles) Vaccine (1 of 2)2006Fall Risk Screening 2021OVID-19 Vaccine ( - 2024- season)512/, 01/08/2021, 10/08/2020Influenza Imqetij9903/20/2025RSV ( or age 60+ yrs) (1 - 1-dose 75+ series)09/24/2031 Medical Devices Not on file Insurance * Guarantor: Ofe Stephenson TypeRelation to PatientDate of BirthPhone Billing AddressPersonal/OzssvgNbrk49/07/1956 [place] [address] Care Teams Team MemberRelationshipSpecialtyStart DateEnd Date Gerson Gonzalez Jr., [address] [place] [address] PCP - GeneralInternal Medicine10/08/18
--- OUTSIDE RECORDS SUMMARY | 2025-07-16 16:08 | XMS_ITS | Encounter Summary ---
Author Organization [facility] Address [address] [place] [address] Care Team Providers Care Consumer Loan Manager Name Role Phone Lisa Carson DO, Charles Lewis Primary Care Provi heladio Lisa Carson DO, Charles Lewis Unavailable [phone] Ghislaine Thakur RN Unavailable [phone] Nicholas Gracia MD Unavailable [phone] Dianne Keller APRN.[employer]K WHIPPER Unavailable + Danielle Castellon Unavailable Unavailable Ramone Marcos RN Unavailable Unava ilable Source Comments In the event this information is protected by the Federal Confidentiality of Alcohol and Drug AbusePatient Records regulations: The Federal rules restrict any use of the information to criminally investigate or prosecute any alcohol or drug abuse patient.[facility] Reason for Visit * ReasonCommentsFirst Time Treatment Education Encounter Details DateTypeDepartmentCare Team (Latest Contact Info)Klqqpijuedu86/22/2025Education Hematology/Oncology [address] [place] [address] Ghislaine Thakur RN [address] [place] [address] First Time Treatment Education Social History Tobacco UseTypesPacks/DayYears UsedDateSmoking Tobacco: FormerCigarettes1.518 07/20/1981 - 07/20/1999Smokeless Tobacco: NeverAlcohol UseStandard Drinks/Week CommentsNo0 (1 standard drink = 0.6 oz pure alcohol)PHQ-2AnswerDate RecordedPHQ- 2 oimma424/16/2025Area Deprivation IndexAnswerDate RecordedNational Score (1- 100), lower number is lower [id number] Score (1-10), lower number is lower bgul1013Data from: https://www.neighborhoodatlas.medicine.[facility].edu/. Last address used for op[address]CommentsNoSex and Gender Information ValueDate RecordedSex Assigned at BirthNot on fileLegal SodAruzwb65/02/2012 9:48 AM ESTGender BysauthzXpxhxw58/26/2022 11:07 AM EDTSexual OrientationNot on file OccupationIndustryJob Start DateJob End DatedisabledNot on fileNot on fileNot on filedocumented as of this encounter Functional Status * Are you deaf or do you have serious difficulty hearing?AnswerDate of VcqurnvuljMjdwvqNaq29/27/2015 12:58 PM Penny Wills MA * Are you blind or do you have serious difficulty seeing, even when wearing glasses?AnswerDate of ZuwqsobjohKbzbagFwi92/27/2015 12:58 PM Penny Wills MA * Do you have serious difficulty walking or climbing stairs?AnswerDate of ZicyazweguJrdofdMk93/27/2015 12:58 PM Penny Wills MA * Do you have difficulty dressing or bathing?AnswerDate of AssessmentAuthorNo 09/15/2014 12:58 PM Penny Wills MA * Because of a physical, mental, or emotional condition, do you have difficulty doing errands alone such as visiting a doctor's office or shopping?AnswerDate of HwtivwwcvxYfvjscVci31/27/2015 12:58 PM Penny Wills MA documented as of this encounter Mental Status * Because of a physical, mental, or emotional condition, do you have serious difficulty concentrating, remembering, or making decisions?AnswerEntry Date GcrrkdRs40/27/2015 12:58 PM Penny Wills MA documented in this encounter Progress Notes * Ghislaine Thakur RN - 07/10/2025 11:26 AM EST ONCOLOGY PATIENT EDUCATION NOTE TOPIC: Chemotherapy, Medications: gemzar patient called today for education for treatment of Non-Small Cell Lung Cancer Anticipated/Scheduled start date: tomorrow READINESS TO LEARN: COGNITIVE ABILITY: Alert and oriented MOTIVATION TO LEARN: Interested FAMILY SUPPORT: High - Very involved in pt care INSTRUCTION PROVIDED TO: Patient and Spouse INSTRUCTION PROVIDED BY: Nurse Coordinator PATIENT LEARNS BEST BY: Multiple Methods FACTORS AFFECTING LEARNING: None PHYSICAL LIMITATIONS AFFECTING LEARNING: None LEARNING RESPONSE METHOD OF INSTRUCTION: Individual instruction Written instruction/Handouts Verbal instruction PATIENT/FAMILY RESPONSE: Verbalizes understanding of: CHEMOTHERAPY-Regimen, toxicity and side effects INFECTION MANAGEMENT-Signs and symptoms of an infection and importance of contacting the physician MEDICAL REGIMEN-Importance of following prescribed medical regimen MEDICATION SIDE EFFECTS-Side effects associated with the medication that warrant a call to the physician PATIENT SAFETY PRINCIPLES SYMPTOM MANAGEMENT-Correct actions to take to manage symptoms associated with his/her disease/illness WORSENING CONDITION-Signs and symptoms of a worsening condition that warrant a call to the physician Information received as demonstrated by interest and questions FOLLOW UP PLAN: Patient instructed to call with any further issues Recommend - Recommend continued instruction and follow up as directed SUPPLEMENTAL MATERIAL: Written material was provided at this visit with the following information: - Chemotherapy education was provided by a pharmacist NO - Side effect management information was provided/discussed including but not limited to: abdominaldiscomfort, anemia, appetite changes, arthralgia, bowel habit changes, chest pain, diet, electrolyte disturbances, fatigue, fluid retention, headache, hypersensitivity reaction, infection, myalgia, na usea/vomitting, neutropenia, peripheral neuropathy, rash, risk for DVT, shortness of breath, skin changes, taste changes, thrombocytopenia YES - Provided important phone numbers and contacts during and after hours. YES - Provided information on symptoms that require immediate assistance. YES - Provided Chemotherapy when to call handouts YES - Preventing infection. YES - Treatment schedule and confirmation of appointment times. YES - Available support groups. NA - The importance of contraception during the course of chemotherapy NA - Neutropenic fever protocol discussed with patient, which included the importance of reporting anyfever of 100.4F (38.0C) or greater to the healthcare team as noted on the provided wallet card and/or magnet. YES - Pt has my journey binder at home from previous treatment - When pt is in the office tomorrow will give her updated education materials. Time Spent: 20 minutes REFERRAL (RECOMMENDATION): N/A Ghislaine Thakur RN documented in this encounter Plan of Treatment DateTypeDepartmentCare Team (Latest Contact Info)Cufqvtcowpo92/30/2025 2:15 PM ESTOffice Visit [facility] [address] [place] [address] [place] [address] follow up kajpokiprim35/30/2025 2:30 PM ESTVisit (SP) Office Hematology/Oncology [address] [place] [address] [place] [address] Vicki Soriano APRN.[employer]K WHIPPER [address] [facility] [place] [address] follow up fcibimzickd10/30/2025 3:[address] [facility] Hematology/Oncology [address] [facility] [place] [address] follow up djeakwphmcb37/31/2025 1:00 PM [facility] Hematology/[place] [address] Luis M Silvestre DO [address] [place] [address] VV FOLLOW UP07/25/2025 1:15 PM ESTOffice Visit [facility] [address] [place] [address] [place] [address] lab follow up and chemotx Okpfqs7107/25/2025 1:40 PM ESTVisit (SP) Office Hematology/Oncology [address] [place] [address] [place] [address] Miguel Sheridan MD [address] [place] [address] [place] [address] lab follow up and chemotx Ljedro5907/25/2025 2:30 PM ESTInfusion Center Hematology/Oncology [address] [place] [address] [place] [address] lab follow up and chemotx Ttprkr7308/29/2025 10:30 AM ESTOffice Visit Palliative Medicine [address] [place] [address] [place] [address] Dianne Keller, SURESH.[employer] NECK WHIPPER [address] [place] [address] 3 month follow up09/19/2025 1:40 PM ESTOffice Visit Endocrinology [address] [place] [address] Shawna Card MD, PhD [address] [place], [place] [id number] Return in about 6 months (around 09/14/2025).documented as of this encounter Visit Diagnoses Diagnosis Malignant neoplasm of overlapping sites of right lung (HCC)- Primary documented in this encounter Care Teams Team MemberRelationshipSpecialtyStart DateEnd Date Gerson Gonzalez Jr., DO [address] [facility] [place] [id number] PCP - General08/24/01 Gerson Gonzalez Jr., DO [address] [facility] [place] [address] ReferringInternal Aydporev72/18/24 Ghislaine Thakur RN [address] [place] [address] [place] [address] Specialty Care CoordinatorHematology/Oncology08/31/24 Nicholas Gracia MD [address] [place] [address] [place] [address] PhysicianHematology/Oncology08/31/24 Dianne Keller APRN.[employer] WHIPPER [address] [place] [address] [place] [phone] Hospice & Palliative Medicine08/31/24 Danielle Castellon LSW Social Worker09/29/24 Ramone Marcos, RN Specialty Care CoordinatorHospice & Palliative Nnqnxjas00/13/25documented as of this encounter
--- OUTSIDE RECORDS SUMMARY | 2025-07-16 16:08 | XMS_ITS | Clinical Summary ---
Author Organization [facility] Address [address] [place] [address] Care Team Providers Care Pilot Plant Supervisor Name Role Phone Gerson Gonzalez MD Primary Care Provider [phone] Shasta Flood Unavailable Allergies Active AllergyReactionsCriticalityNoted DtxnEdqtcndjIjwxmXfxjdpkLmlx15/16/2010 Seasonal allergies Medications MedicationSigDispense QuantityRefillsLast FilledStart DateEnd DateStatus ezetimibe (Zetia) 10 MG tablet Take 10 mg by mouth in the morning.09/27/2022ctive cholecalciferol (Vitamin D-3) 25 MCG (1000 UT) tablet Take 1,000 Units by mouth in the morning.Active modafinil (Provigil) 200 MG tablet 01/01/2023ctive ascorbic acid (Vitamin C) 500 mg/mL oral liquid Take by mouth DailyActive Multiple Vitamins-Minerals (PRESERVISION AREDS 2 PO) Take by mouthActive levothyroxine (Synthroid, Levoxyl) 25 MCG tablet Take 25 mcg by mouth in the morning. Take before meals.03/27/2023ctive MAGNESIUM BISGLYCINATE PO Take 300 mg by mouthActive FLUoxetine (PROzac) 20 MG capsule Take 20 mg by mouth DailyActive primidone (Mysoline) 50 MG tablet Indications:TremorTake 0.5-1 tablets (25-50 mg) by mouth at bedtime 30 tablet 5Active gabapentin (Neurontin) 100 MG capsule Indications:Trigeminal neuralgia,Anxiety disorder, unspecified type,TremorTake 1 capsule (100 mg) by mouth in the morning and 1 capsule (100 mg) before bedtime. 180 capsule 5Active Active Problems ProblemNoted DateDiagnosed MzceSsbcqey72/25/2024 Overview (11/12/2023): She is having increasing anxiety [...] but continues with symptoms of anxiety. Panic xrguvwt4611/12/2023Visual pkgoylaawjlhv48/25/2024 Overview (11/12/2023): Patient has been experiencing visual [...] states she did not hear back from [facility] regarding scheduling. Closed fracture of lower end of left radius with routine bzdount4602/24/2023losed fracture of lower end of left ulna with routine gwqqetx1002/24/2023Left wrist pain 02/24/2023ell palsy08/11/2018AVM (arteriovenous malformation) ([facility]) 08/11/2018 Overview (11/12/2023): 65 year old female with history of ruptured AVM requiring surgery in 2008 and then developed strokeduring surgery. 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 She reportedly had benefit with low dose clonazepam previously. Repeat brain MRI at [facility] with Dr. 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 She was following with neuro ophthalmology. She has developed visual hallucinations which are new for her. Tension type tlgvxxis95/23/4160Szvxwiofo83/23/2019Neck pain08/11/2018 Overview (11/12/2023): History of neck pain which remains at baseline without worsening. Cervical stenosis of spinal canal08/11/20182612Urcvzaca13/07/2017 Overview (11/12/2023): Migraines are stable and infrequent. Frtsof5705/26/2017Trigeminal ymrlhjlmk83/03/2015 Overview (11/12/2023): She has had trigeminal neuralgia and previously on neurontin. She has trialed botox in the past at [facility]. She weaned gabapentin and is feeling better without medication . Degenerative disc disease, rwkqjr7301/30/2014Degenerative disc disease, cervical 02/08/2010 Overview (11/12/2023): History of neck pain. At baseline. Family History Medical HistoryRelationNameCommentsAVMFatherBrain AneurysmFatherCancerFather Kidney cancerFatherStrokeMaternal GrandfatherBreast cancerMaternal Grandmother CancerMaternal GrandmotherHypertensionMotherHypertensionOtherStrokePaternal GrandfatherMelanomaNeg HxRelationNameStatusCommentsFatherDeceasedMaternal GrandfatherMaternal GrandmotherMotherAliveOtherPaternal Grandfather Social History Tobacco UseTypesPacks/DayYears UsedDateSmoking Tobacco: FormerCigarettes Smokeless Tobacco: Never Comments:Last smoked 10+ yea rs ago Alcohol UseStandard Drinks/WeekCommentsNever0 (1 standard drink = 0.6 oz pure alcohol)Caffine intake:4+ cups dailyAUDIT-CAnswerDate RecordedQ1: How often do you have a drink containing alcohol?Monthly or less11/12/2023Q2: How many drinks containing alcohol do you have on a typical day when you are drinking?1 or 2 11/12/2023Q3: How often do you have six or more drinks on one occasion?Never 11/12/2023CommentsUnknownSex and Gender InformationValueDate RecordedSex Assigned at BirthNot on fileLegal WhwTqqczl88/ 7:08 PM EDTGender Identity Not on fileSexual OrientationNot on file Last Filed Vital Signs Vital SignReadingTime TakenCommentsBlood Kcpocjzq115/72011/22/2024 1:09 PM EDT Tmwyk603911/22/2024 1:09 PM EDTTemperature--Respiratory Ssvp106011/22/2024 1:09 PM EDTOxygen Isjpcfzwnj27%11/22/2024 1:09 PM EDTInhaled Oxygen Concentration-- Egyjuw04.2 kg (190 lb)11/22/2024 1:09 PM GJSIhypoa194.3 cm (5' 9 )11/22/2024 1:09 PM EDTBody Mass Index28.0611/22/2024 1:09 PM EDT Plan of Treatment Not on file Insurance Care Teams Team MemberRelationshipSpecialtyStart DateEnd Date Gerson Gonzalez MD [address] [place] [address] [place] [address] PCP - GeneralInternal Medicine6/21/23 Shasta Flood PA [address] [place] [address] Physician AssistantNeurology10/10/24
--- OUTSIDE RECORDS SUMMARY | 2025-07-16 16:08 | XMS_ITS | Encounter Summary ---
Author Organization [facility] Address [address] [place] [address] Care Team Providers Care Aquatic Physiotherapist Name Role Phone Lisa Carson DO, Charles Lewis Primary Care Provi heladio Lisa Carson DO, Charles Lewis Unavailable [phone] Ghislaine Thakur RN Unavailable [phone] Nicholas Gracia MD Unavailable [phone] Dianne Keller APRN.CELL MAKER Unavailable + Danielle Castellon Unavailable Unavailable Ramone Marcos RN Unavailable Unava ilable Source Comments In the event this information is protected by the Federal Confidentiality of Alcohol and Drug AbusePatient Records regulations: The Federal rules restrict any use of the information to criminally investigate or prosecute any alcohol or drug abuse patient.[facility] Encounter Details DateTypeDepartmentCare Team (Latest Contact Info)Ewftuwzmedr91/17/2025Orders Only Hematology/Oncology [address] [place] [address] [place] [address] Kaylyn Cox, [facility] Social History Tobacco UseTypesPacks/DayYears UsedDateSmoking Tobacco: FormerCigarettes1.518 07/20/1981 - 07/20/1999Smokeless Tobacco: NeverAlcohol UseStandard Drinks/Week CommentsNo0 (1 standard drink = 0.6 oz pure alcohol)PHQ-2AnswerDate RecordedPHQ- 2 cfrvj3605Area Deprivation IndexAnswerDate RecordedNational Score (1- 100), lower number is lower eyxd807704/10/2023State Score (1-10), lower number is lower hbnq2753Data from: https://www.neighborhoodatlas.medicine.[facility].edu/. Last address used for z[address]CommentsNoSex and Gender Information ValueDate RecordedSex Assigned at BirthNot on fileLegal OuwRoffmh84/02/2012 9:48 AM ESTGender RbftknmgLfkoby72/26/2022 11:07 AM EDTSexual OrientationNot on file OccupationIndustryJob Start DateJob End DatedisabledNot on fileNot on fileNot on filedocumented as of this encounter Functional Status * Are you deaf or do you have serious difficulty hearing?AnswerDate of QzoaismsgzDuwwunEra56/27/2015 12:58 PM Penny Wills MA * Are you blind or do you have serious difficulty seeing, even when wearing glasses?AnswerDate of YsiouxxunoNdcxrjNcx17/27/2015 12:58 PM Penny Wills MA * Do you have serious difficulty walking or climbing stairs?AnswerDate of MabbsykkglVuqordUb94/27/2015 12:58 PM Pneny Wills MA * Do you have difficulty dressing or bathing?AnswerDate of AssessmentAuthorNo 09/15/2014 12:58 PM Penny Wills MA * Because of a physical, mental, or emotional condition, do you have difficulty doing errands alone such as visiting a doctor's office or shopping?AnswerDate of GreeietzbiUohyjxFaq26/27/2015 12:58 PM Penny Wills MA documented as of this encounter Mental Status * Because of a physical, mental, or emotional condition, do you have serious difficulty concentrating, remembering, or making decisions?AnswerEntry Date SlvgycOj49/27/2015 12:58 PM Penny Wills MA documented in this encounter Plan of Treatment DateTypeDepartmentCare Team (Latest Contact Info)Xggryjunalx39/30/2025 2:15 PM ESTOffice Visit [facility] [address] [place] [address] [place] [address] follow up xvkgpuyudom73/30/2025 2:30 PM ESTVisit (SP) Office Hematology/Oncology [address] [place] [address] [place] [address] Vicki Soriano APRN.[address] [place] [address] follow up cerhdnfiiha28/30/2025 3:00 PM [facility] Hematology/Oncology [address] [place] [address] [place] [address] follow up jlyrwlqaryj17/31/2025 1:00 PM [facility] Hematology/Oncology [address] [place] [address] Luis M Silvestre, [address] [place], [place] [id number] VV FOLLOW UP07/25/2025 1:15 PM ESTOffice Visit [facility] [address] [place] [address] [place] [address] lab follow up and chemotx Bvrnwl0507/25/2025 1:40 PM ESTVisit (SP) Office Hematology/Oncology [address] [place] [address] [place] [address] Miguel Sheridan MD [address] [place] [address] [place] [address] lab follow up and chemotx Xovinh6307/25/2025 2:30 PM [facility] Hematology/Oncology [address] [facility] [place] [address] lab follow up and chemotx Aqvtyd9608/29/2025 10:30 AM ESTOffice Visit Palliative Medicine [facility] [place] [address] Dianne Keller APRN.CELL MAKER [address] [place] [address] 3 month follow up09/19/2025 1:40 PM ESTOffice Visit Endocrinology [address] [place], [place] [id number] Shawna Card MD, PhD [address] [place], [place] [id number] Return in about 6 months (around 09/14/2025).documented as of this encounter Visit Diagnoses Not on filedocumented in this encounter Care Teams Team MemberRelationshipSpecialtyStart DateEnd Date Gerson Gonzalez Jr., DO [address] [place] [address] PCP - General08/24/01 Gerson Gonzalez Jr., DO [address] [facility] [place] [address] ReferringInternal Raasaoeg31/18/24 Ghislaine Thakur RN [address] [place] [address] Specialty Care CoordinatorHematology/Oncology08/31/24 Nicholas Gracia MD [address] [place] [address] [place] [address] PhysicianHematology/Oncology08/31/24 Dianne Keller APRN.CELL MAKER [address] [place] [address] [place] [address] Hospice & Palliative Medicine08/31/24 Danielle Castellon LSW Social Worker09/29/24 Ramone Marcos RN Specialty Care CoordinatorHospice & Palliative Bwpmqwky08/13/25documented as of this encounter
--- OUTSIDE RECORDS SUMMARY | 2025-07-16 16:08 | XMS_ITS | Encounter Summary ---
Author Organization [facility] Address [address] [place] [address] Care Team Providers Care Digital Computer Systems Analyst Name Role Phone Lisa Carson DO, Charles Lewis Primary Care Provi heladio Lisa Carson DO, Charles Lewis Unavailable [phone] Ghislaine Thakur RN Unavailable [phone] Nicholas Gracia MD Unavailable [phone] Dianne Keller APRN.CLIENT EXPERIENCE ADMINISTRATOR Unavailable + Danielle Castellon Unavailable Unavailable Ramone Marcos RN Unavailable Unava ilable Source Comments In the event this information is protected by the Federal Confidentiality of Alcohol and Drug AbusePatient Records regulations: The Federal rules restrict any use of the information to criminally investigate or prosecute any alcohol or drug abuse patient.[facility] Encounter Details DateTypeDepartmentCare Team (Latest Contact Info)Wgnkadgijrd47/24/2025Travel Social History Tobacco UseTypesPacks/DayYears UsedDateSmoking Tobacco: FormerCigarettes1.518 07/20/1981 - 07/20/1999Smokeless Tobacco: NeverAlcohol UseStandard Drinks/Week CommentsNo0 (1 standard drink = 0.6 oz pure alcohol)PHQ-2AnswerDate RecordedPHQ- 2 [id number] Deprivation IndexAnswerDate RecordedNational Score (1- 100), lower number is lower ooel26583State Score (1-10), lower number is lower atyj4573Data from: https://www.neighborhoodatlas.[facility]/. Last address used for eg[address]CommentsNoSex and Gender Information ValueDate RecordedSex Assigned at BirthNot on fileLegal MoyEtqqdi14/02/2012 9:48 AM ESTGender PvbqdfbhEzygnl20/26/2022 11:07 AM EDTSexual OrientationNot on file OccupationIndustryJob Start DateJob End DatedisabledNot on fileNot on fileNot on filedocumented as of this encounter Functional Status * Are you deaf or do you have serious difficulty hearing?AnswerDate of QgnygoxiwzChwluaDab51/27/2015 12:58 PM Penny Wills MA * Are you blind or do you have serious difficulty seeing, even when wearing glasses?AnswerDate of XtxmkmpjmhYiysxcCce11/27/2015 12:58 PM Penny Wills MA * Do you have serious difficulty walking or climbing stairs?AnswerDate of AfddjiskrpWefgzeIg98/27/2015 12:58 PM Penny Wills MA * Do you have difficulty dressing or bathing?AnswerDate of AssessmentAuthorNo 09/15/2014 12:58 PM Penny Wills MA * Because of a physical, mental, or emotional condition, do you have difficulty doing errands alone such as visiting a doctor's office or shopping?AnswerDate of YrharnrpxdYdwqqdVdj68/27/2015 12:58 PM Penny Wills MA documented as of this encounter Mental Status * Because of a physical, mental, or emotional condition, do you have serious difficulty concentrating, remembering, or making decisions?AnswerEntry Date WwcozwHp86/27/2015 12:58 PM Penny Wills MA documented in this encounter Plan of Treatment DateTypeDepartmentCare Team (Latest Contact Info)Cijtntrenlk03/30/2025 2:15 PM ESTOffice Visit [facility] [address] [place] [address] follow up noqzqavxmpa92/30/2025 2:30 PM ESTVisit (SP) Office Hematology/Oncology [address] [place] [address] [place] [address] Vicki Soriano APRN.[facility] [address] [place] [address] follow up tzveuseknlg25/30/2025 3:00 PM [facility] Hematology/Oncology [address] [place] [address] [place] [address] follow up wrvfmdeiish72/31/2025 1:00 PM [facility] Hematology/Oncology [address] [place] [address] Luis M Silvestre, [address] [place] [address] VV FOLLOW UP07/25/2025 1:15 PM ESTOffice Visit [facility] [address] [place] [address] [place] [address] lab follow up and chemotx Cvsnwm7507/25/2025 1:40 PM ESTVisit (SP) Office Hematology/Oncology [address] [place] [address] Miguel Sheridan MD [address] [facility] [place] [address] lab follow up and chemotx Ujwrzb6107/25/2025 2:30 PM [facility] Hematology/Oncology [address] [place] [address] [place] [address] lab follow up and chemotx Ruovpr8508/29/2025 10:30 AM ESTOffice Visit Palliative Medicine [address] [place] [address] Dianne Keller APRN.CLIENT EXPERIENCE ADMINISTRATOR [address] [place] [address] 3 month follow up09/19/2025 1:40 PM ESTOffice Visit Endocrinology [address] [facility] [place] [address] Shawna Card MD, PhD [address] [facility] [address] Return in about 6 months (around 09/14/2025).documented as of this encounter Visit Diagnoses Not on filedocumented in this encounter Care Teams Team MemberRelationshipSpecialtyStart DateEnd Date Gerson Gonzalez Jr., DO [facility] [place] [address] PCP - General08/24/01 Gerson Gonzalez Jr., DO [address] [place] [phone] ReferringInternal Mtupezfr06/18/24 Ghislaine Thakur RN [address] [place] [address] Specialty Care CoordinatorHematology/Oncology08/31/24 Nicholas Gracia MD [address] [place] [address] PhysicianHematology/Oncology08/31/24 Dianne Keller APRN.CLIENT EXPERIENCE ADMINISTRATOR [address] [place] [address] Hospice & Palliative Medicine08/31/24 Danielle Castellon LSW Social Worker09/29/24 Ramone Marcos RN Specialty Care CoordinatorHospice & Palliative Kpdpexzu86/13/25documented as of this encounter
--- OUTSIDE RECORDS SUMMARY | 2025-07-16 16:08 | XMS_ITS | Encounter Summary ---
Author Organization [facility] Address [address] [place] [address] Care Team Providers Care Player Manager Name Role Phone Lisa Carson DO, Charles Lewis Primary Care Provi heladio Lisa Carson DO, Charles Lewis Unavailable [phone] Ghislaine Thakur RN Unavailable [phone] Nicholas Gracia MD Unavailable [phone] Dianne Keller APRN.DENTURE LABORATORY TECHNICIAN Unavailable + Danielle Castellon Unavailable Unavailable Ramone Marcos RN Unavailable Unava ilable Source Comments In the event this information is protected by the Federal Confidentiality of Alcohol and Drug AbusePatient Records regulations: The Federal rules restrict any use of the information to criminally investigate or prosecute any alcohol or drug abuse patient.[facility] Encounter Details DateTypeDepartmentCare Team (Latest Contact Info)Qwfxjcsdzas49/23/2025Travel Social History Tobacco UseTypesPacks/DayYears UsedDateSmoking Tobacco: FormerCigarettes1.518 07/20/1981 - 07/20/1999Smokeless Tobacco: NeverAlcohol UseStandard Drinks/Week CommentsNo0 (1 standard drink = 0.6 oz pure alcohol)PHQ-2AnswerDate RecordedPHQ- 2 kbgak0655Area Deprivation IndexAnswerDate RecordedNational Score (1- 100), lower number is lower qeri02613State Score (1-10), lower number is lower jixb6693Data from: https://www.neighborhoodatlas.[facility]/. Last address used for vxq[address]3CommentsNoSex and Gender Information ValueDate RecordedSex Assigned at BirthNot on fileLegal VagBigorg77/02/2012 9:48 AM ESTGender JwfkrngtUiaeft53/26/2022 11:07 AM EDTSexual OrientationNot on file OccupationIndustryJob Start DateJob End DatedisabledNot on fileNot on fileNot on filedocumented as of this encounter Functional Status * Are you deaf or do you have serious difficulty hearing?AnswerDate of NepcuudwhnYznbknIzm05/27/2015 12:58 PM Penny Wills MA * Are you blind or do you have serious difficulty seeing, even when wearing glasses?AnswerDate of SeuifhstaqZhyuveIgl45/27/2015 12:58 PM Penny Wills MA * Do you have serious difficulty walking or climbing stairs?AnswerDate of OpgfmakextOffafiKm28/27/2015 12:58 PM Penny Wills MA * Do you have difficulty dressing or bathing?AnswerDate of AssessmentAuthorNo 09/15/2014 12:58 PM Penny Wills MA * Because of a physical, mental, or emotional condition, do you have difficulty doing errands alone such as visiting a doctor's office or shopping?AnswerDate of AguwxprmadNpzucdPdb30/27/2015 12:58 PM Penny Wills MA documented as of this encounter Mental Status * Because of a physical, mental, or emotional condition, do you have serious difficulty concentrating, remembering, or making decisions?AnswerEntry Date PztqbyPm05/27/2015 12:58 PM Penny Wills MA documented in this encounter Plan of Treatment DateTypeDepartmentCare Team (Latest Contact Info)Xwunuqegzuo58/30/2025 2:15 PM ESTOffice Visit [facility] [address] [address] follow up uwdhyzurpsr10/30/2025 2:30 PM ESTVisit (SP) Office Hematology/Oncology [address] [place] [address] [place] [address] Vicki Soriano APRN.[facility] [address] [place] [address] follow up kygihocanlx19/30/2025 3:00 PM [facility] Hematology/Oncology [address] [place] [address] [place] [address] follow up kagiyawllyb29/31/2025 1:00 PM [facility] Hematology/Oncology [address] [place] [address] Luis M Silvestre, [address] [place] [address] VV FOLLOW UP07/25/2025 1:15 PM ESTOffice Visit [facility] [address] [place] [address] [place] [address] lab follow up and chemotx Jmrgxa7107/25/2025 1:40 PM ESTVisit (SP) Office Hematology/Oncology [address] [address] Miguel Sheridan MD [address] [place] [address] lab follow up and chemotx Yummbt3007/25/2025 2:30 PM [facility] Hematology/Oncology [address] [place] [address] [place] [address] lab follow up and chemotx Cqxgkd2608/29/2025 10:30 AM ESTOffice Visit Palliative Medicine [address] [address] Dianne Keller APRN.DENTURE LABORATORY TECHNICIAN [address] [place] [address] 3 month follow up09/19/2025 1:40 PM ESTOffice Visit Endocrinology [address] [facility] [place] [address] Shawna Card MD, PhD [address] [facility] [place] [address] Return in about 6 months (around 09/14/2025).documented as of this encounter Visit Diagnoses Not on filedocumented in this encounter Care Teams Team MemberRelationshipSpecialtyStart DateEnd Date Gerson Gonzalez Jr., DO [facility]3 [place] [address] PCP - General08/24/01 Gerson Gonzalez Jr., DO [address] [place] [phone] ReferringInternal Rkgodagc70/18/24 Ghislaine Thakur RN [address] [address] Specialty Care CoordinatorHematology/Oncology08/31/24 Nicholas Gracia MD [address] [address] PhysicianHematology/Oncology08/31/24 Dianne Keller APRN.DENTURE LABORATORY TECHNICIAN [address] [address] Hospice & Palliative Medicine08/31/24 Danielle Castellon LSW Social Worker09/29/24 Ramone Marcos RN Specialty Care CoordinatorHospice & Palliative Lvqwakro59/13/25documented as of this encounter
--- OUTSIDE RECORDS SUMMARY | 2025-07-16 16:09 | XMS_ITS | Encounter Summary ---
Author Organization [facility] Address [address] [place] [address] Care Team Providers Care Obstetric Assistant Name Role Phone Lisa Carson DO, Charles Lewis Primary Care Provi heladio Lisa Carson DO, Charles Lewis Unavailable [phone] Ghislanie Thakur RN Unavailable [phone] Nicholas Gracia MD Unavailable [phone] Dianne Keller APRN.BONE CHAR KILN OPERATOR Unavailable + Danielle Castellon Unavailable Unavailable Ramone Marcos RN Unavailable Unava ilable Source Comments In the event this information is protected by the Federal Confidentiality of Alcohol and Drug AbusePatient Records regulations: The Federal rules restrict any use of the information to criminally investigate or prosecute any alcohol or drug abuse patient.[facility] Encounter Details DateTypeDepartmentCare Team (Latest Contact Info)Wqukxuhoaox41/17/2025Orders Only Hematology/Oncology [address] [place] [address] [place] [address] Jessica Hernández, [facility] [address] [facility] [place] [address] Social History Tobacco UseTypesPacks/DayYears UsedDateSmoking Tobacco: FormerCigarettes1.518 07/20/1981 - 07/20/1999Smokeless Tobacco: NeverAlcohol UseStandard Drinks/Week CommentsNo0 (1 standard drink = 0.6 oz pure alcohol)PHQ-2AnswerDate RecordedPHQ- 2 /16/2025Area Deprivation IndexAnswerDate RecordedNational Score (1- 100), lower number is lower vnaa727704/10/2023State Score (1-10), lower number is lower wslk5323Data from: https://www.neighborhoodatlas.medicine.[facility].edu/. Last address used for [address]3CommentsNoSex and Gender Information ValueDate RecordedSex Assigned at BirthNot on fileLegal RlmGnpgly20/02/2012 9:48 AM ESTGender AnsbehyxBbbqsw54/26/2022 11:07 AM EDTSexual OrientationNot on file OccupationIndustryJob Start DateJob End DatedisabledNot on fileNot on fileNot on filedocumented as of this encounter Functional Status * Are you deaf or do you have serious difficulty hearing?AnswerDate of EspkagijakAyegyaFpu08/27/2015 12:58 PM Penny Wills MA * Are you blind or do you have serious difficulty seeing, even when wearing glasses?AnswerDate of RelitlrsntUjcpitDld87/27/2015 12:58 PM Penny Wills MA * Do you have serious difficulty walking or climbing stairs?AnswerDate of BtrgrcpjnxYdurssGs47/27/2015 12:58 PM Penny Wills MA * Do you have difficulty dressing or bathing?AnswerDate of AssessmentAuthorNo 09/15/2014 12:58 PM Penny Wills MA * Because of a physical, mental, or emotional condition, do you have difficulty doing errands alone such as visiting a doctor's office or shopping?AnswerDate of PepwpkzmjoVdcrllSpm56/27/2015 12:58 PM Penny Wills MA documented as of this encounter Mental Status * Because of a physical, mental, or emotional condition, do you have serious difficulty concentrating, remembering, or making decisions?AnswerEntry Date IuvvyqMf86/27/2015 12:58 PM Penny Wills MA documented in this encounter Plan of Treatment DateTypeDepartmentCare Team (Latest Contact Info)Gztbqssiwbj14/30/2025 2:15 PM ESTOffice Visit [facility] [address] [facility] [place] [address] follow up pivcfymqnxq80/30/2025 2:30 PM ESTVisit (SP) Office Hematology/Oncology [address] [place] [address] [place] [address] Vicki Soriano APRN.BONE CHAR KILN OPERATOR [address] [facility] [place] [address] follow up mpuxirtkjqd19/30/2025 3:00 PM [facility] Hematology/Oncology [address] [place] [address] [place] [address] follow up lnesuxcxpke41/31/2025 1:00 PM [facility] Hematology/[place] [address] Luis M Silvestre, [address] [place] [address] VV FOLLOW UP07/25/2025 1:15 PM ESTOffice Visit [facility] [address] [facility] [place] [address] lab follow up and chemotx Pjgfdh2507/25/2025 1:40 PM ESTVisit (SP) Office Hematology/Oncology [address] [facility] [place] [address] Miguel Sheridan MD [address] [facility] [place] [address] lab follow up and chemotx Ddblhx2207/25/2025 2:30 [facility] [address] [facility] [place] [address] lab follow up and chemotx Oiknrv7908/29/2025 10:30 AM ESTOffice Visit Palliative Medicine [address] [place] [address] [place] [address] Dianne Keller APRN.BONE CHAR KILN OPERATOR [address] [place] [address] 3 month follow up09/19/2025 1:40 PM ESTOffice Visit Endocrinology [address] [place], [place] [address] Shawna Card MD, PhD [address] [place], [place] [address] Return in about 6 months (around 09/14/2025).documented as of this encounter Visit Diagnoses Not on filedocumented in this encounter Care Teams Team MemberRelationshipSpecialtyStart DateEnd Date Gerson Gonzalez Jr., DO [address] [facility] [place] [phone] PCP - General08/24/01 Gerson Gonzalez Jr., DO [address] [facility] [place] [address] ReferringInternal Eijzbsso99/18/24 Ghislaine Thakur RN [address] [facility] [place] [address] Specialty Care CoordinatorHematology/Oncology08/31/24 Nicholas Gracia MD [address] [place] [address] [place] [address] PhysicianHematology/Oncology08/31/24 Dianne Keller APRN.BONE CHAR KILN OPERATOR [address] [place] [address] [place] [phone] Hospice & Palliative Medicine08/31/24 Danielle Castellon LSW Social Worker09/29/24 Ramone Marcos, RN Specialty Care CoordinatorHospice & Palliative Gqagenpo71/13/25documented as of this encounter
--- OUTSIDE RECORDS SUMMARY | 2025-07-16 16:09 | XMS_ITS | Patient Health Record ---
Author Organization [facility] [place] Address [address] [place] [address] Care Team Providers Care Preschool Lead Teacher Name Role Phone Gerson Gonzalez DO Primary Care Provider Unavail able Allergies No Known Allergies Reason For Referral No Information Medications Medication SIG (Take, Route, Frequency, Duration) Notes Start Date End Date Status clonazePAM 0.5 MG Orally Not-TakingGabapentin 300 MGOrallyNot-TakingMeloxicam 15 MGTAKE 1 TABLET BY MOUTH EVERY DAY FOR 30 DAYS; Duration: 92DidtzjPjnpbmz44/01/1900Active magnesium oxide ActivePROzac 20 MG1 capsule Orally Once a day04/21/2024 ActiveVitamin B-12007/20/1899ActiveVitamin D007/20/1899ActiveZetia 10 MG1 tablet Orally Once a day04/21/2024ctive Problems Problem Type SNOMED Code ICD Code Onset Dates Problem Status W/U Status Risk Notes Problem Plantar fascial fibr omatosis (03573380) Plantar fascial fibromatosis (M72.2) 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) (300691462)Other congenital malformations of lower limb(s), 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)ActiveconfirmedProblemOsteoarthritis of knee (567433815) Primary osteoarthritis of right knee (M17.11)ActiveconfirmedProblem Osteoarthritis of knee (525662728)Primary osteoarthritis of left knee (M17.12) ActiveconfirmedProblemNuclear senile cataract (910927016)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)ActiveconfirmedProblemPain in left foot (980610507663794)Left foot pain (M79.672)ActiveconfirmedProblemBilateral arthritis of knees (6443295968409896)Primary osteoarthritis of knees, 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)Active confirmed Plan Of Treatment Pending Test Test Name Order Date XR Foot LT (3 views) * 04/21/2024 XR foot LT min 3V 04/22/2024 Insurance Providers Payer Name Payer Address Payer Phone Subscriber Number Group Number Insured Name Patient Relationship to Insured Coverage Start Date Coverage End Date [place] [address] [place] [address] [id number] Nelida Stephenson - patient is the [id number] [address] [address] [place] [phone], SusanSelf - patient is the insured Medications Administered Medication Instructions Date of Administration Dosage Notes Bupivacaine mLDepo-Medrol, 80 mg/mL mLKenalog, 80 mg/mL (40mg/mL x 2 units) mLSynvisc-One 48 mg mL Medical (General) History Medical History History ICD Code History of hearing loss SnoringPrevious history of headache preceded by vertigoSurgical History Surgery Date(Month/Year) facial surgery 2010 eyes 2007/2009/ Surgical / procedural histor y Brainstem resection of cavernous malformation in 10/26 Surgical / procedural history Brainstem resection of cavernous malformation in 120113Ycvvhsclhfzpmqr History Reason Date(Month/Year) see above
--- OUTSIDE RECORDS SUMMARY | 2025-07-16 16:09 | XMS_ITS | Clinical Summary ---
Author Organization [facility] Address [address] [place] [address] Care Team Providers Care Stucco Mason Name Role Phone Lisa Carson DO, Charles Lewis Primary Care Provi heladio Lisa Carson DO, Charles Lewis Unavailable [phone] Ghislaine Thakur RN Unavailable Nicholas Gracia MD Unavailable [phone] Dianne Keller APRN.DIRECTOR OF GROUP COUNSELING PROGRAM Unavailable + Danielle Castellon Unavailable Unavailable Ramone Marcos RN Unavailable Unava ilable Allergies Active AllergyReactionsCriticalityNoted DateCommentsSeasonal AllergiesItching High01/02/2010 Medications MedicationSigDispense QuantityRefillsLast FilledStart DateEnd DateStatus CHOLECALCIFEROL (VITAMIN D3) 2,000 UNIT CAP Take one(1) tablet daily.ctive Magnesium Oxide-Mg Amino Acid Chelate 300 mg cap Take 300 mg by mouth daily at bedtime.Active ASCORBIC ACID (VITAMIN C ORAL) Take by mouth once daily.Active vitamin b complex tab Take 1 tablet by mouth once daily.08/03/2018Active ezetimibe (ZETIA) 10 mg tablet Take 10 mg by mouth once daily.2Active FLUoxetine (PROZAC) 20 mg capsule Take 40 mg by mouth once daily.Active acetaminophen (TYLENOL) 325 mg tablet Take 325 mg by mouth as needed for pain.4Active prochlorperazine (COMPAZINE) 10 mg tablet Take 1 tablet by mouth every 6 hours as needed. 100 tablet 5Active torsemide (DEMADEX) 20 mg tablet once daily as needed.5Active gabapentin 300 mg Tb24 Take 300 mg by mouth two times a day.5Active empagliflozin (JARDIANCE) 10 mg tablet Take 10 mg by mouth daily with breakfast.Active levothyroxine (SYNTHROID) 75 mcg tablet Indications:Acquired hypothyroidismTake 1 tablet by mouth once daily. 90 tablet 5Active dexAMETHasone (DECADRON) 4 mg tablet PLEASE SEE ATTACHED FOR DETAILED QOOVIUINNY75/26/2025tive loratadine (CLARITIN) 10 mg tablet Loratadine 10 mg tablet Active 10 MG PO February 06, 2025 12:00am Complies with drug dgblrgu60/21/2025Active diphenhydrAMINE 12.5 mg/5 mL lidocaine visc 2% MAALOX 200-200-20 mg/5 mL nystatin prednisoLONE 15 mg/5 mL oral liquid 1:1:1:1:1 (CPD) Take 10 mL by mouth four times a day as needed. Swish and spit 300 mL 05/09/2025 3:50 PM EDT15Active oxyCODONE IR (ROXICODONE) 5 mg immediate release tablet Indications:Metastatic cancer to bone (HCC),Neoplasm related painTake 1 to 2 tablets by mouth every 6 hours as needed for pain for up to 15 days. 120 tablet 05/30/2025 1:39 PM EST5Active Bnvbpkmcwykseev-Ltheuxz-MM (ROBITUSSIN DAC) 30-10-100 mg/5 mL solution Indications: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),Acute coughTake 2.5 mL by mouth four times a day as needed for up to 94 days. 473 mL Discontinued(Discontinued by Patient) benzonatate (TESSALON PERLE) 100 mg capsule Indications:Chronic coughTake 1 capsule by mouth four times a day as needed for cough for up to 15 days. 60 capsule 05/30/2025 1:39 PM EST5108/21/2024Expired iv contrast (will be provided with radiology test) MRI Brain Inject, intravenously, once for 1 dose.No IV access, insert saline lock prior to beginning of sedation, infusion, injection of imaging exam.Discontinue saline lock post exam. If Pt. has a central line or IVAD, may access for administration according to line specific nursing protocol.Once exam is complete flush line and de-access according to line specific nursing protocol in the MR contrast administration guidelines link 1 each Expired iv contrast (will be provided with radiology test) Inject 1 each intravenously one time only for [address] Neck W IVCON No IV access, insert saline lock prior to the sedation, infusion, injection for imaging exam. Discontinue saline lock post exam. If Pt. has a central line or IVAD, may access for administration according to line specific nursing protocol. Once exam is complete flush line and de-access according to line specific nursing protocolin the CT contrast administration guidelines link. 1 each Expired Active Problems ProblemNoted DateDiagnosed DateModerate recurrent major orixryqhbx04/30/2025 Malignant neoplasm of overlapping sites of right lung08/23/2024Obesity, Class I, BMI 30-34.9011/12/2021Vasomotor symptoms due to cgfwamsdl56/26/2022Multiple thyroid anwxsiw3411/12/2021Vertical eevajexjq80/04/2014Unspecified disorder of muscle, ligament, and njuawe8111/04/2012Myalgia and myositis, unspecified 05/07/2011rticular disc disorder (reducing or non-reducing) of temporomandibular joint04/24/20101492Xwdnnjw74/08/2010Cranial nerve paralysis 06/05/2009Paralytic strabismus, sixth or abducens nerve palsy06/01/2008 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 Post-op had deficits including left hemiparesis, left facial droop, dysarthria, diplopia. 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 Anxiety state, unspecified Encounters DateTypeDepartmentCare YzsdZmbwocljbef75/24/2025 8:10 AM EST - 07/12/2025 11:59 PM ESTHospital Encounter Radiology Pet CT [address] [facility] [place] [address] Localized enlarged lymph nodes [R59.0] Discharge Disposition: Home07/12/20257960Topjxl78/23/2025 1:30 PM ESTInfusion Center Hematology/Oncology [address] [place] [address] [place] [address] Malignant neoplasm of overlapping sites of right lung (HCC) (Primary Dx) 07/11/2025 1:00 PM ESTVisit (SP) Office Hematology/Oncology [address] [place] [address] [place] [address] Vicki Soriano APRN.DIRECTOR OF GROUP COUNSELING PROGRAM Malignant neoplasm of overlapping sites of right lung (HCC) (Primary Dx); Metastatic cancer to bone (HCC); Hypothyroidism due to medication; 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); Localized enlarged lymph nodes07/11/20250476Lmnjsj03/22/2025Education Hematology/Oncology [address] [facility] [place] [address] Ghislaine Thakur, RN First Time Treatment Kpplqdytz82/18/2025Telephone Hematology/Oncology [address] [place] [address] [place] [address] Danielle Castellon LSW 07/05/2025 9:20 AM ESTVisit (SP) Office Hematology/Oncology [address] [place] [address] [place] [address] Nicholas Gracia MD Malignant neoplasm of overlapping sites of right lung (HCC) (Primary Dx) 07/05/2025Orders Only Hematology/Oncology [address] [place] [address] [place] [address] Kaylyn Cox, [facility] 07/05/2025Orders Only Hematology/Oncology [address] [place] [address] [place] [address] Jessica Hernández, [facility] 07/05/2025Telephone Hematology/Oncology [address] [place] [address] [place] [address] Nicholas Gracia MD 07/04/2025Telephone Hematology/Oncology [address] [facility] [address] Annamarie Lal RN 07/01/2025 Patient Msg Hematology/Oncology [address] [facility] [address] Nicholas Gracia MD Appointment Defypxf7806/23/2025 11:30 AM EST - 06/23/2025 12:30 PM ESTSurgery [facility] [address] [place] [address] Jackie Osorio MD BIOPSY OR EXCISION LYMPH NODES(S) NEEDLE BGBYXHDLMRC79/05/2025 10:50 AM EST - 06/23/2025 11:59 AM ESTHospital Encounter [facility] [address] [place] [address] Jackie Osorio MD Malignant neoplasm of overlapping sites of right lung (HCC) [C34.81] Discharge Disposition: Home06/23/20251457Cmoheg63/03/2025 Patient Msg [facility] [address] [place] [address] Provider, Ccf Preprocedural instructions for June 23Telephone [facility] [address] [place] [address] Clovis Molina, frozen meat cutter Pre Procedure Iqrqunivvbjq58/02/2025 1:00 PM ESTVisit (SP) Office Hematology/Oncology [address] [facility] [address] Nicholas Gracia MD Malignant neoplasm of overlapping sites of right lung (HCC) (Primary Dx) 06/20/2025Telephone Cancer Appts [address] [facility] [address] Rodolfo Valdez MD Biopsy Jqcsenu8606/13/2025 1:11 PM EST - 06/13/2025 11:59 PM ESTHospital Encounter Radiology Pet CT [address] [facility] [address] 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) [C34.92] Discharge Disposition: Home06/13/2025Telephone Hematology/Oncology [address] [facility] [place] [address] Nicholas Gracia MD Lab Jaqbqa6106/12/2025 12:34 PM EST - 06/12/2025 11:59 PM ESTHospital Encounter Radiology [address] [place] [address] Multiple thyroid nodules [E04.2] Discharge Disposition: Home06/12/2025Radiology Radiology [address] [place] [address] Jess Rush RDMS Radiology US06/11/20251008Obntwf80/11/2025 11:30 AM [facility] Hematology/Oncology [address] [place] [address] [place] [address] Malignant neoplasm of overlapping sites of right lung (HCC) (Primary Dx) 05/30/2025 11:00 AM ESTVisit (SP) Office Hematology/Oncology [address] [place] [address] [place] [address] Evelina Harrison, BELT TENDER.DIRECTOR OF GROUP COUNSELING PROGRAM Malignant neoplasm of overlapping sites of right lung (HCC) (Primary Dx); Metastatic cancer to bone (HCC); 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); Encounter for antineoplastic chemotherapy; Chemotherapy-induced fatigue; Mucositis due to antineoplastic therapy; Ujcdsobfp11/11/2025 10:30 AM ESTOffice Visit Palliative Medicine [address] [place] [address] [place] [address] Dianne Keller, BELT TENDER.DIRECTOR OF GROUP COUNSELING PROGRAM Chronic cough (Primary Dx); Metastatic cancer to bone (HCC); Neoplasm related pain; Palliative care by specialist; Chronic obstructive pulmonary disease, unspecified COPD type (HCC); SOB (shortness of breath); Secondary malignant neoplasm of unspecified site (HCC); Lung mass; Constipation due to opioid therapy; Chemotherapy-induced njiqbs9905/30/20259897Kidzgd16/03/2025Telephone Hematology/Oncology [address] [place] [address] [place] [address] Annamarie Lal, MEKHI 05/09/2025 1:30 PM [facility] Hematology/Oncology [address] [place] [address] [place] [address] Malignant neoplasm of overlapping sites of right lung (HCC) (Primary Dx) 05/09/2025 1:00 PM EDTVisit (SP) Office Hematology/Oncology [address] [place] [address] [place] [address] Nicholas Gracia MD 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) (Primary Dx); Malignant neoplasm of overlapping sites of right lung (HCC)05/09/2025Telephone Hematology/Oncology [address] [place] [address] [place] [address] Talia Flores, MEKHI Patient Update (Photosensitivity)05/09/2025Orders Only Hematology/Oncology [address] [place] [address] [place] [address] Nicholas Gracia MD 05/09/20250386Cvakog08/20/2025Telephone Hematology/Oncology [address] [place] [address] [place] [address] Nicholas Gracia MD Lab Oebibn8505/07/20254691Pzgiqo12/07/2025 11:30 AM EDTVisit (SP) Office Hematology/Oncology [address] [place] [address] [place] [address] Josie Arcos PA-C Malignant neoplasm of overlapping sites of right lung (HCC) (Primary Dx); Chemotherapy-induced neutropenia; Mucositis due to antineoplastic pfmelav5704/25/2025Telephone Hematology/Oncology [address] [place] [address] [place], [place] [id number] Ghislaine Thakur RN Care Coordination (C1D1 treatment follow up call)04/18/2025 11:30 AM EDTInfusion Center Hematology/Oncology [address] [place] [address] [place] [address] Malignant neoplasm of overlapping sites of right lung (HCC) (Primary Dx) 04/18/2025 11:00 AM EDTVisit (SP) Office Hematology/Oncology [address] [place] [address] [place], [place] [phone] Josie Arcos PAKelly Moderate recurrent major depression (HCC) (Primary Dx); 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); Acute cough04/18/2025 9:15 AM EDTOffice Visit PULMONARY [address] [place] [address] [place] [address] Brynn Manjarrez MD Cough, unspecified type (Primary Dx); History of tobacco use04/18/2025 8:45 AM EDTProcedure PULMONARY [address] [facility] [place] [address] Rqvcmxrmsp80/30/2025 8:15 AM EDTProcedure PULMONARY [address] [facility] [place] [address] Kxrgzfezxx38/30/2025Telephone Hematology/Oncology [address] [facility] [address] Nicholas Gracia MD 04/18/2025Travelfrom Last 3 Months Family History Medical HistoryRelationCommentsCoronary Artery DiseaseBrotherAlcohol/DrugFather kidney cancerFatherOvarian cancerMaternal AuntBreast CancerMaternal Grandmother ArthritisMotherCataractMotherHypertensionMotherLipidsMotherThyroidMotherThyroid Paternal GrandmotherArthritisSisterHypertensionSisterLipidsSisterThyroidSister AmblyopiaNo Family HistoryBlindnessNo Family HistoryDetached RetinaNo Family HistoryGlaucomaNo Family HistoryMacular DegenNo Family HistoryRelationStatus CommentsBrotherFatherDeceasedMaternal AuntDeceasedMaternal GrandmotherMother AlivePaternal GrandmotherSister Social History Tobacco UseTypesPacks/DayYears UsedDateSmoking Tobacco: FormerCigarettes1.518 07/20/1981 - 07/20/1999Smokeless Tobacco: Never Tobacco Cessation:Counseling Given: Not Answered Alcohol UseStandard Drinks/WeekCommentsNo0 (1 standard drink = 0.6 oz pure alcohol)PHQ-2AnswerDate RecordedPHQ-2 upvkj816/16/2025Area Deprivation Index AnswerDate RecordedNational Score (1-100), lower number is lower risk87 04/10/2023State Score (1-10), lower number is lower ggmu0093Data from: https://www.neighborhoodatlas.medicine.[facility].edu/. Last address used for eomaabtwcwk[address] ANDRADE04/10/2023CommentsNoSex and Gender Information ValueDate RecordedSex Assigned at BirthNot on fileLegal WljHyhoyv90/02/2012 9:48 AM ESTGender DrfpacdiPvkeep65/26/2022 11:07 AM EDTSexual OrientationNot on file OccupationIndustryJob Start DateJob End DatedisabledNot on fileNot on fileNot on file Last Filed Vital Signs Vital SignReadingTime TakenCommentsBlood Pcbdmvmc811/6507/11/2025 12:52 PM EST Mfpfy769107/11/2025 12:52 PM VWHZfirrcieeoh38.4 ??C (97.6 ??F)07/11/2025 12:52 PM ESTRespiratory Arbg943809/11/2024 12:52 PM ESTOxygen Jhoskyshih48%07/11/2025 12:52 PM ESTInhaled Oxygen Concentration--Bwmiih80.6 kg (168 lb 14 oz)07/11/2025 1:53 PM CMVSggwdg264.5 cm (5' 8.31 )07/11/2025 1:53 PM ESTverified by 2RNsBody Mass Index25.45109/11/2024 1:53 PM EST Plan of Treatment DateTypeDepartmentCare Team (Latest Contact Info)Maiizuzlxeo33/30/2025 2:[address] [facility] [address] [place] [address] [place] [address] follow up gmkqvaqnque17/30/2025 2:30 PM ESTVisit (SP) Office Hematology/Oncology [address] [facility] [place] [address] Vicki Soriano, BELT TENDER.DIRECTOR OF GROUP COUNSELING PROGRAM [address] [facility] [place] [address] follow up qaabcyjqqrb95/30/2025 3:00 PM ESTInfusion Center Hematology/Oncology [address] [facility] [place] [address] follow up grlgywvqxvl56/31/2025 1:00 PM ESTWest [facility]/[place] [address] Luis M Silvestre DO [address] [place] [address] VV FOLLOW UP07/25/2025 1:[address] [address] [place] [address] [place] [address] lab follow up and chemotx Triabw0007/25/2025 1:40 PM ESTVisit (SP) Office Hematology/Oncology [address] [place] [address] [place] [address] Miguel Sheridan MD [address] [place] [address] [place] [address] lab follow up and chemotx Iwxyvx3507/25/2025 2:30 PM [facility] Hematology/Oncology [address] [place] [address] [place] [address] lab follow up and chemotx Yhsejd9708/29/2025 10:30 AM ESTOffice Visit Palliative Medicine [address] [place] [address] [place] [address] Dianne Keller, BELT TENDER.DIRECTOR OF GROUP COUNSELING PROGRAM [address] [place] [phone] 3 month follow up09/19/2025 1:40 PM ESTOffice Visit Endocrinology [address] [place], [place] [phone] Shawna Card MD, PhD [address] [place], [place] [phone] Return in about 6 months (around 09/14/2025).Health MaintenanceDue DateLast Done CommentsCervical Cancer Jlrbxwvky47/07/1968Annual PCP Team Chronic Disease Visit 1974Hepatitis C Aprsxneoi23/07/1975DTaP,Tdap,Td Vaccine (1 - Tdap) 09/24/1975Pneumococcal Vaccine: 50+ (1 of 2 - PCV)09/24/1975Shingrix Vaccine (1 of 2)09/24/1975CT Taogsaatuvhw13/07/8704Crlyqvzuhik32/07/2002Fecal Occult Blood 2001Lipid Fufdibroq11/07/2934Mdjqppjtybvap94/07/2002Medicare Annual Wellness Visit06/19/2005RSV Vaccine (1 - Risk 50-74 years 1-dose series) 2006Bone Density Fmfnpesuf59/07/2022Mammogram Wfniwqddl07/21/2023 11/07/2021, 11/07/2021, 10/27/2017, Additional history existsAdvance Directive Oxtfuiupti52/01/2025Covid-19 Vaccine ( season)/, 01/08/2021, 10/08/2020Influenza Vaccine (#1)2025ologuard (FIT-DNA) , 04/24/2021olorectal Cancer Nnapipysq59/30/2027Diabetes Fjmdimzyy81, 06/20/2025, 05/30/2025, Additional history exists Medical Devices ImplantedTypeAreaManufacturerDevice IdentifierShelf Expiration DateModel / Serial / LotGold Eyelid Weight 1.0g - [id number] [facility]plant[facility]: [id number] / / Procedures Procedure NamePriorityDate/TimeAssociated DiagnosisCommentsCT NECK SOFT TISSUE W PEXSGUfzxljm48/24/2025 8:38 AM EST Localized enlarged lymph nodes TSH YVDXwtckvn93/23/2025 12:45 PM EST Malignant neoplasm of overlapping sites of right lung (HCC) Metastatic cancer to bone (HCC) Encounter for antineoplastic chemotherapy Hypothyroidism due to medication MAGNESIUM XGJHxaqnqw72/23/2025 12:45 PM EST Malignant neoplasm of overlapping sites of right lung (HCC) Metastatic cancer to bone (HCC) Encounter for antineoplastic chemotherapy COMPREHENSIVE METABOLIC VKOMZXaloduh77/23/2025 12:45 PM EST Malignant neoplasm of overlapping sites of right lung (HCC) Metastatic cancer to bone (HCC) Encounter for antineoplastic chemotherapy CBC + LZQMUstpvlb65/23/2025 12:45 PM EST Malignant neoplasm of overlapping sites of right lung (HCC) Metastatic cancer to bone (HCC) Encounter for antineoplastic chemotherapy REFERRAL FOR ADDITIONAL BIOMARKER AND MOLECULAR KZUWZBFEdwchtg49/17/2025 12:54 PM EST Malignant neoplasm of overlapping sites of right lung (HCC) IMAGING GUIDED BIOPSY CERVICAL LYMPH NODE06/23/2025 11:52 AM EST HER2 BY IHC NON JKCWMFZweecbj63/05/2025 11:49 AM EST Malignant neoplasm of overlapping sites of right lung (HCC) FLOW CYTOMETRY FOR LEUKEMIA/LYMPHOMA (FCLL) ITGZBPNvahggb48/05/2025 11:49 AM EST Malignant neoplasm of overlapping sites of right lung (HCC) SURGICAL VNWINTBMPEezwqov18/05/2025 11:49 AM EST Malignant neoplasm of overlapping sites of right lung (HCC) BX/EXC LYMPH NODE NEEDLE YJLIOSXHZGX18/05/2025 11:15 AM EST Malignant neoplasm of overlapping sites of right lung (HCC) MAGNESIUM VIJZgwpthq46/02/2025 12:35 PM EST Malignant neoplasm of overlapping sites of right lung (HCC) Malaise and fatigue TSH VVQAblodmk15/02/2025 12:35 PM EST Malignant neoplasm of overlapping sites of right lung (HCC) Malaise and fatigue COMPREHENSIVE METABOLIC CMOQIEabiygq06/02/2025 12:35 PM EST Malignant neoplasm of overlapping sites of right lung (HCC) Malaise and fatigue CBC + VYSBJpmugga97/02/2025 12:35 PM EST Malignant neoplasm of overlapping sites of right lung (HCC) Malaise and fatigue NM PET/CT SKULL-THIGH RUFNZHLNUJOfjhaun78/25/2025 3:10 PM EST 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) GLUCOSE, BLOOD (POC)Keztvod4006/13/2025 1:31 PM EST US THYROID/RGLMDZHDUTILlpqpqu21/24/2025 1:25 PM EST Multiple thyroid nodules COMPREHENSIVE METABOLIC JPUQSJvwsmlb36/11/2025 10:14 AM EST 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) CBC + QODWIdmrbqt63/11/2025 10:14 AM EST 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) CBC + YQWWUyixcbt47/21/2025 12:43 PM EDT Malignant neoplasm of overlapping sites of right lung (HCC) COMPREHENSIVE METABOLIC QVCCTWzwirzz76/21/2025 12:43 PM EDT Malignant neoplasm of overlapping sites of right lung (HCC) CBC + GQSOTxzfewm89/07/2025 11:16 AM EDT 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) Acute cough COMPREHENSIVE METABOLIC MRAMEKfoyope25/07/2025 11:16 AM EDT 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) Acute cough COMPREHENSIVE METABOLIC GXLVZHhjmbja14/30/2025 9:40 AM EDT 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) CBC + DRDBWvgfeya59/30/2025 9:40 AM EDT 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) NITRIC OXIDE, YWYNAOHVsuxkvx76/30/2025 8:46 AM EDT Acute cough SPIROMETRY - BASELINE AND POST OQDYHNVBxnoacw14/30/2025 8:22 AM EDT Acute cough from Last 3 Months Results * CT NECK SOFT TISSUE W [...] any questions regarding this interpretation, please call [phone]. If you are unable to reach us at the number above, please feel free to contact [facility] at [phone]. Narrative 07/12/2025 9:49 AM EST * * [...] this is only marginally included in the virjh-yf-tavo on the planar reconstructions. Lung apices: There [...] study.. Other: Not applicable. Procedure Note Provider, [facility] [place] - 07/12/2025 * * *Final Report* * [...] this is only marginally included in the johal-qj-ruuy on the planar reconstructions. Lung apices: There [...] any questions regarding this interpretation, please call [phone]. If you are unable to reach us at the number above, please feel free to contact [facility] at [phone]. Authorizing ProviderResult TypeResult StatusHolly Bo PRINCE.CNPCT-PAMAFinal Result * MAGNESIUM (07/11/2025 12:45 PM EST) Only the most recent of2 resultswithin the time period is included. ComponentValueRef RangeTest MethodAnalysis TimePerformed AtPathologist Signature Magnesium1.71.7 - 2.3 mg/dL07/11/2025 1:26 PM ESTNORTCOREWELL [facility]ALTH [facility] LABSpecimen (Source)Anatomical Location / LateralityCollection Method / VolumeCollection TimeReceived TimeBloodBLOOD SPECIMEN / UnknownVenipuncture / Kozkqok5307/11/2025 12:45 PM EST07/11/2025 12:45 PM EST Narrative Authorizing ProviderResult TypeResult StatusJoseafshan Sheridan MDLABORATORYFinal ResultPerforming OrganizationAddressCity/State/ZIP CodePhone Number [facility] [address] [place] [address] * (ABNORMAL) THYROID STIMULATING HORMONE (07/11/2025 12:45 PM EST) Only the most recent of2 resultswithin the time period is included. ComponentValueRef RangeTest MethodAnalysis TimePerformed AtPathologist Signature TSH6.140(H)0.270 - 4.200 mIU/L109/12/2024 5:05 AM ESTADENA [facility] Specimen (Source)Anatomical Location / LateralityCollection Method / Volume Collection TimeReceived TimeBloodBLOOD SPECIMEN / UnknownVenipuncture / Unknown 07/11/2025 12:45 PM EST07/11/2025 12:45 PM EST Narrative Authorizing ProviderResult TypeResult StatusJojovanny Sheridan MDLABORATORYFinal ResultPerforming OrganizationAddressCity/State/ZIP CodePhone Number [facility] [address] [phone], * (ABNORMAL) COMPREHENSIVE METABOLIC PANEL (07/11/2025 12:45 PM EST) Only the most recent of6 resultswithin the time period is included. ComponentValueRef RangeTest MethodAnalysis TimePerformed AtPathologist Signature Protein, Total6.66.3 - 8.0 g/dL07/11/2025 1:26 PM ESTNORTCOREWELL [facility]ALTH [facility] LABAlbumin3.3(L)3.9 - 4.9 g/dL07/11/2025 1:26 PM ESTMINNIE HAMILTON [facility]ALTH [facility] LABCalcium, Total9.38.5 - 10.2 mg/dL07/11/2025 1:26 PM EST [facility] LABBilirubin, Total0.20.2 - 1.3 mg/dL 07/11/2025 1:26 PM ESTNORTCOREWELL HEALTH [facility] LABAlkaline Phosphatase 9834 - 123 U/L109/11/2024 1:26 PM ESTNORTCOREWELL [facility] UEPCIN2552 - 35 U/L109/11/2024 1:26 PM ESTRTCOREWELL HEALTH [facility] OOBPLZ5027 - 35 U/L109/11/2024 1:26 PM ESTNORTCOREWELL [facility] EUDPlbvdtp8605 - 99 mg/dL07/11/2025 1:26 PM ESTRTCOREWELL HEALTH [facility] LABComment: The [place] [employer] (ADA) provides guidance for cutoff values for fasting glucose andrandom glucose. The ADA defines fasting as no [...] [place] [employer]. Diabetes Care. 2016.39(Suppl 1). WGV861 - 21 mg/dL07/11/2025 1:26 PM [facility] Creatinine0.54(L)0.58 - 0.96 mg/dL07/11/2025 1:26 PM [facility] CQZCcppqa483962 - 144 mmol/L109/11/2024 1:26 PM [facility] LABPotassium4.13.7 - 5.1 mmol/L109/11/2024 1:26 PM EST [facility] XGMJdiyoqpe3692 - 107 mmol/L109/11/2024 1:26 PM [facility] GHNZL64102 - 30 mmol/L109/11/2024 1:26 PM [facility] LABAnion Aqd769 - 15 mmol/L109/11/2024 1:26 PM [facility] LABEstimated Glomerular Filtration Rate 100>=60 mL/min/1.73m 07/11/2025 1:26 PM [facility] LABComment:Estimated Glomerular Filtration Rate (eGFR) is calculated using the 2020 CKD-EPI creatinine equation. This equation utilizes serum creatinine, sex, and age as parameters. The creatinine assay has traceable calibration to isotope dilution- mass spectrometry. Refer to KDIGO guidelines for clinical interpretation. In patients with unstable renal function, e.g. those with acute kidney injury, the eGFRmay not accurately reflect actual GFR.Specimen (Source)Anatomical Location / LateralityCollection Method / VolumeCollection TimeReceived TimeBloodBLOOD SPECIMEN / UnknownVenipuncture / Rzcpoio3807/11/2025 12:45 PM EST07/11/2025 12:45 PM EST Narrative Authorizing ProviderResult TypeResult StatusJoseafshan Sheridan MDLABORATORYFinal ResultPerforming OrganizationAddressCity/State/ZIP CodePhone Number [facility] [address] [place] [address] * (ABNORMAL) COMPLETE BLOOD COUNT AND DIFFERENTIAL (07/11/2025 12:45 PM EST) Only the most recent of6 resultswithin the time period is included. ComponentValueRef RangeTest MethodAnalysis TimePerformed AtPathologist Signature WBC12.50(H)3.70 - 11.00 k/uL07/11/2025 12:48 PM [facility] LABRBC3.71(L)3.90 - 5.20 m/uL07/11/2025 12:48 PM [facility] YZEYmtrvnhala18.4(L)11.5 - 15.5 g/dL07/11/2025 12:48 PM EST [facility] JPWOswfeouulq42.1(L)36.0 - 46.0 %07/11/2025 12:48 PM [facility] VYBOIQ17.980.0 - 100.0 fL 07/11/2025 12:48 PM [facility] WCUGHO70.026.0 - 34.0 pg07/11/2025 12:48 PM [facility] SEFOILC87.530.5 - 36.0 g/dL07/11/2025 12:48 PM [facility] LABRDW-CV18.1 (H)11.5 - 15.0 %07/11/2025 12:48 PM [facility] Platelet Knezu676(H)150 - 400 k/uL07/11/2025 12:48 PM [facility] LABMPV9.29.0 - 12.7 fL07/11/2025 12:48 PM [facility] LABNeutrophils %80.5%07/11/2025 12:48 PM [facility] LABAbs Neut10.06(H)1.45 - 7.50 k/uL07/11/2025 12:48 PM EST [facility] LABLymphocytes %8.1%07/11/2025 12:48 PM EST [facility] LABAbs Lymph1.011.00 - 4.00 k/uL07/11/2025 12:48 PM [facility] LABMonocytes %8.2%07/11/2025 12:48 PM [facility] LABAbs Mono1.03(H)<0.87 k/uL07/11/2025 12:48 PM [facility] LABEosinophils %2.4%07/11/2025 12:48 PM [facility] LABAbs Eosin0.30<0.46 k/uL 07/11/2025 12:48 PM [facility] LABBasophils %0.3% 07/11/2025 12:48 PM [facility] LABAbs Baso0.04<0.11 k/uL07/11/2025 12:48 PM [facility] LABImmature Granulocytes %0.5%07/11/2025 12:48 PM [facility] Abs Immature Gran0.06<0.10 k/uL07/11/2025 12:48 PM [facility] LABNRBC0.0/100 WBC07/11/2025 12:48 PM [facility] LABAbsolute nRBC<0.01<0.01 k/uL07/11/2025 12:48 PM [facility] LABDiff NwqfCajd90/23/2025 12:48 PM [facility] LABSpecimen (Source)Anatomical Location / LateralityCollection Method / VolumeCollection TimeReceived TimeBloodBLOOD SPECIMEN / UnknownVenipuncture / Obiptxv5807/11/2025 12:45 PM EST07/11/2025 12:45 PM EST Narrative Authorizing ProviderResult TypeResult StatusJoseph N Sheridan MDLABORATORYFinal ResultPerforming OrganizationAddressCity/State/ZIP CodePhone Number [facility] [address] [place] [address] * REFERRAL FOR ADDITIONAL BIOMARKER AND MOLECULAR TESTING (07/05/2025 12:54 PM EST)ComponentValueRef RangeTest MethodAnalysis TimePerformed AtPathologist KhhshsyrtOLLHQW30/17/2025 3:25 PM [facility] Comment:Request has been received for evaluation and the results will be issued separately.Specimen (Source)Anatomical Location / LateralityCollection Method / VolumeCollection TimeReceived TimeTissuePARAFFIN EMBEDDED TISSUE BLOCK SPECIMEN / Vktrfyt8807/05/2025 12:54 PM EST07/05/2025 12:54 PM EST Narrative [facility] - 07/05/2025 3:25 PM EST Authorizing ProviderResult TypeResult StatusAdarsh Vennepureddy MDLABORATORY Final ResultPerforming OrganizationAddressCity/State/ZIP CodePhone Number [facility] [address] [place] [address] * IMAGING GUIDED BIOPSY CERVICAL LYMPH NODE (06/23/2025 11:52 AM EST)Anatomical RegionLateralityModalityUltrasoundSpecimen (Source)Anatomical Location / LateralityCollection Method / VolumeCollection TimeReceived Time06/23/2025 11:52 AM EST Impressions 06/23/2025 12:02 PM EST IMPRESSION: Image-guided biopsy of RIGHT supraclavicular lymph node. Plan: Specimen(s) sent for evaluation. ATTESTATION: Signer name: Jackie Osorio I attest that I was present for the entire procedure. I reviewed the stored images and agree with the report as written. Forge Helper: PSCB ?? Transcribe Date/Time: Jun?2024 11:57A Dictated by : JACKIE OSORIO MD This examination was interpreted and the report reviewed and electronically signed by: JACKIE OSORIO MD on Jun 12:00PM ??EST Narrative 06/23/2025 12:02 PM EST * * *Final Report* * * DATE OF EXAM: Jun 11:52AM ?? [facility] ?? 2052 ??- ??US BIOPSY CERVICAL LYMPH NODE ??/ PROCEDURE REASON: Malignant neoplasm of overlapping sites of right lung ? * * * * Physician Interpretation * * * * PROCEDURE: IMAGE GUIDED BIOPSY Procedural Personnel Attending physician(s): Jackie Osorio M.D. Fellow physician(s): None Resident physician(s): None Advanced practice provider(s): None Medical Student(s): None Pre-procedure diagnosis: RIGHT lung cancer Post-procedure diagnosis: Same Indication: Histopathologic diagnosis Previous biopsy of same target (QCDR): No Additional clinical history: Large RIGHT supraclavicular lymph node PROCEDURE SUMMARY: - Percutaneous ultrasound guided core needle biopsy - Additional procedure(s): None PROCEDURE DETAILS: Pre-procedure Consent: Consent obtained with the patient as documented. Medication reconciliation: Done Gisela-procedure discussion: The appropriate elements of the pre-procedure discussion, safety check list and sign-out were performed. Time out was completed before start of procedure. Preparation: The site was prepared and draped using maximal sterile barrier technique including cutaneous antisepsis. Contrast: Contrast agent: Contrast volume (mL): Image Guidance: ??CT guidance Radiation/Dose: CT Radiation dose: Integrated Dose-length product (DLP) for this visit = mGy*cm. CT Dose Reduction Employed: Anesthesia/Sedation: Level of anesthesia/sedation: No sedation Anesthesia/sedation administered by: Not applicable Total intra-service sedation time (minutes): Local anesthesia: 2 % lidocaine Antibiotics and meds: None Antibiotic infusion start time: N/A Prophylactic antibiotic administered: Within 1 hour of procedure start time or 2 hours for vancomycin or fluoroquinolones Additional med: ??None Additional med: ??None Start of procedure: 11:46 End of procedure: 11:52 TECHNIQUE Patient position: ??Supine Imaging prior to biopsy Initial imaging was performed. Biopsy target: - Maximal diameter (cm): 5 - Location: RIGHT supraclavicular Other findings: None Biopsy Local anesthesia was administered. Under US guidance, the biopsy needle was advanced to the target and biopsy was performed. Coaxial needle: None Core needle biopsy device: [employer] Core needle size: 18 gauge Number of core specimens: 4, 2 in formalin and 2 on saline soaked Telfa Fine needle aspiration device: Fine needle size: Not applicable Number of FNA specimens: Not applicable On-site biopsy touch preparation: Additional sampling recommendations: None Preliminary assessment of sample adequacy: Needle removal The biopsy needle was removed and a sterile dressing was applied. Tract embolization: None Imaging following biopsy Immediate post-biopsy imaging was performed. Post-biopsy imaging findings: No hematoma Additional Details Specimens removed: Biopsy samples as detailed above Estimated blood loss (mL): Less than 10 Standardized report: SIR_BiopsyUS_v3 COMPLICATIONS: No immediate complications CONCLUSION: The patient was comfortable and was discharged home in stable condition. The procedure was performed by the: attending radiologist, without an speech language pathologist assistant. The attending radiologist performed the following procedural activities: Entire procedure Procedure Note Provider, [facility] [place] - 06/23/2025 * * *Final Report* * * DATE OF EXAM: Jun 23 2025 11:52AM [facility] 2051 - US BIOPSY CERVICAL LYMPH NODE / PROCEDURE REASON: Malignant neoplasm of overlapping sites of right lung * * * * Physician Interpretation * * * * PROCEDURE: IMAGE GUIDED BIOPSY Procedural Personnel Attending physician(s): Jackie Osorio M.D. Fellow physician(s): None Resident physician(s): None Advanced practice provider(s): None Medical Student(s): None Pre-procedure diagnosis: RIGHT lung cancer Post-procedure diagnosis: Same Indication: Histopathologic diagnosis Previous biopsy of same target (QCDR): No Additional clinical history: Large RIGHT supraclavicular lymph node PROCEDURE SUMMARY: - Percutaneous ultrasound guided core needle biopsy - Additional procedure(s): None PROCEDURE DETAILS: Pre-procedure Consent: Consent obtained with the patient as documented. Medication reconciliation: Done Gisela-procedure discussion: The appropriate elements of the pre-procedure discussion, safety check list and sign-out were performed. Time out was completed before start of procedure. Preparation: The site was prepared and draped using maximal sterile barrier technique including cutaneous antisepsis. Contrast: Contrast agent: Contrast volume (mL): Image Guidance: CT guidance Radiation/Dose: CT Radiation dose: Integrated Dose-length product (DLP) for this visit = mGy*cm. CT Dose Reduction Employed: Anesthesia/Sedation: Level of anesthesia/sedation: No sedation Anesthesia/sedation administered by: Not applicable Total intra-service sedation time (minutes): Local anesthesia: 2 % lidocaine Antibiotics and meds: None Antibiotic infusion start time: N/A Prophylactic antibiotic administered: Within 1 hour of procedure start time or 2 hours for vancomycin or fluoroquinolones Additional med: None Additional med: None Start of procedure: 11:46 End of procedure: 11:52 TECHNIQUE Patient position: Supine Imaging prior to biopsy Initial imaging was performed. Biopsy target: - Maximal diameter (cm): 5 - Location: RIGHT supraclavicular Other findings: None Biopsy Local anesthesia was administered. Under US guidance, the biopsy needle was advanced to the target and biopsy was performed. Coaxial needle: None Core needle biopsy device: [employer] Core needle size: 18 gauge Number of core specimens: 4, 2 in formalin and 2 on saline soaked Telfa Fine needle aspiration device: Fine needle size: Not applicable Number of FNA specimens: Not applicable On-site biopsy touch preparation: Additional sampling recommendations: None Preliminary assessment of sample adequacy: Needle removal The biopsy needle was removed and a sterile dressing was applied. Tract embolization: None Imaging following biopsy Immediate post-biopsy imaging was performed. Post-biopsy imaging findings: No hematoma Additional Details Specimens removed: Biopsy samples as detailed above Estimated blood loss (mL): Less than 10 Standardized report: SIR_BiopsyUS_v3 COMPLICATIONS: No immediate complications CONCLUSION: The patient was comfortable and was discharged home in stable condition. The procedure was performed by the: attending radiologist, without an speech language pathologist assistant. The attending radiologist performed the following procedural activities: Entire procedure IMPRESSION IMPRESSION: Image-guided biopsy of RIGHT supraclavicular lymph node. Plan: Specimen(s) sent for evaluation. ATTESTATION: Signer name: Jackie Osorio I attest that I was present for the entire procedure. I reviewed the stored images and agree with the report as written. Forge Helper: JEANETTE Transcribe Date/Time: Jun 23 2025 11:57A Dictated by : JACKIE OSORIO MD This examination was interpreted and the report reviewed and electronically signed by: JACKIE OSORIO MD on Jun 23 2025 12:00PM EST Authorizing ProviderResult TypeResult StatusAdarsh Vennepureddy MDUS-PAMAFinal Result * HER2 BY IHC NON BREAST (06/23/2025 11:49 AM EST)ComponentValueRef RangeTest MethodAnalysis TimePerformed AtPathologist SignatureHER2 StatusNegative for HER2 Rmdkmojtsvmepo36/22/2025 2:14 PM [facility] LABHer2 Score for Enhertu Treatment or Biliary Mdfqr05009/10/2024 2:14 PM [facility] LABTumor TypeUnresectable or Metastatic Solid Tumor for Possible Enhertu Osxqflufq14/22/2025 2:14 PM [facility] Case [id number]/22/2025 2:14 PM [facility] LABCCF Block IDA1 07/10/2025 2:14 PM [facility] LABFixativeFormalin, 10% Neutral Zemppilt68/22/2025 2:14 PM [facility] LABInterpretation Comment and Reference RangeReference Ranges for HER2 immunohistochemistry on biopsies specimens in solid tumor specimens for ENHERTU therapy: Positive (3+): A tumor cell cluster with a strong complete, basolateral, or lateral membranous reactivity irrespective of the percentage of tumor cells stained. Negative (2+): A tumor cell cluster with weak to moderate complete, basolateral, or lateral membranous reactivity, irrespective of the percentage of tumor cells stained. Negative (1+): A tumor cell cluster with faint or barely perceptible membranous reactivity irrespective of the percentage of tumor cells stained. Negative (0): No reactivity in any tumor cell. Reference Ranges for HER2 immunohistochemistry on resection specimens in solid tumor specimens for ENHERTU therapy: Positive (3+): Strong and complete basolateral or lateral membranous reactivity in greater than or equal to 10% of tumor cells. Negative (2+): Weak to moderate complete, basolateral or lateral membranous reactivity in greater than or equal to 10% of tumor cells. Negative (1+): Incomplete, faint membrane staining in greater than or equal to 10% of tumor cells Negative (0): No reactivity or membranous activity in less than 10% of tumor cells. Interpretation comments: ENHERTU (fam-trastuzumab deruxtecan-nxki) is FDA-approved for treating adult patients with unresectable or metastatic HER2-positive (IHC 3+) solid tumors who have received prior systemic treatment and who have no satisfactory alternative treatment options. The approval is based on the BRICE-FirRttmw26 clinical trial in which HER2 IHC is interpreted similarly to the [employer] [place] [employer], [place] Society for Clinical Pathology, and [place] Society of Clinical Oncology biopsy criteria for gastric/EGJ adenocarcinoma. However, 2+ cases are interpreted as negative for ENHERTU therapy. Additionally, HER2 (ERBB2) amplification status by fluorescence in situ hybridization (FISH) plays no role in determining a patient???s eligibility in (non-breast, non- gastric/EGJ, non-colon) solidtumors. Reference: Nirmala DAVIS, et al. HER2 Testing and Clinical Decision Making in Gastroesophageal Adenocarcinoma: Guideline From the College of [place] [employer], [place] Society for Clinical Pathology, and [place] Society of Clinical Oncology. Arch Pathol Lab Med. 2016 Jun;140(12):1140-7596. Jakub F, Marge V, Brendon A, Oh DY, Alfreda S, Brittney??[place]??n A, Alejandro KH, ?mp I, Judith L, Anatoliy A, Jayden B, Arabella S, Kath D, Noah A, Dorota Y, [place] S, Rl N, Anastacio SaldañaY. Efficacy and Safety of Trastuzumab Deruxtecan in Patients With HER2-Expressing Solid Tumors: Primary Results From the BRICE-LxvDecmk34 Phase II Trial. J Clin Oncol. 2023Jul 20;42(1):47-58. doi: 10.1200/JCO.23.19561. Epub 2022May 11. PMID: 36059156; PMCID: [id number]. FDA product label: https://www.accessdata.fda.gov/drugsatfda_docs/label/2023/204097m314jvj.pdf 07/10/2025 2:14 PM [facility] LABMethodHER2 (ERBB2) by IHC: FDA cleared: [employer], [place], [place] Primary Antibody:4B5 Antibody and Detection System: [employer]way anti-HER2 rabbit monoclonal antibody (clone 4B5), were detected with the [employer] iView Detection System (indirect biotin streptavidin detection); [place], [place].07/10/2025 2:[address] [facility] LABDisclaimerLaboratory Developed Test (LDT) Disclaimer: Performance characteristics of immunohistochemical, immunofluorescent, and chromogenic in-situ hybridization tests have been determined by the performing laboratory within the [facility] Department of Pathology and Laboratory Medicine ([facility], [facility], [facility], [facility], [facility], [facility], or [facility]) in a manner consistent with CLIA requirements. One or more of these tests may not have been cleared or approved by the FDA. The [facility] Department of Pathology and Laboratory Medicineis regulated under CLIA as qualified to perform high-complexity testing. These tests are used for clinical purposes. These should not be regarded as investigational or for research. Positive and negative controls stain appropriately.07/10/2025 2:[address] [facility] LABPerforming LabDiagnostic interpretation performed at: [facility], [address] [place] [address] CLIA# [id number] Sales Review Clerk: Josué Bach MD Electronically signed out by: CONNER KHAN MD, PhD07/10/2025 2:[address] [facility] LABSpecimen (Source)Anatomical Location / Laterality Collection Method / VolumeCollection TimeReceived TimeTissueLYMPH NODE BIOPSY SPECIMEN / Vlyemtt5806/23/2025 11:49 AM EST07/06/2025 11:44 AM EST Narrative Authorizing ProviderResult TypeResult StatusEunice Skinny Osorio MDSURGICAL PATHOLOGY Final ResultPerforming OrganizationAddressCity/State/[place] [address], * FLOW CYTOMETRY FOR LEUKEMIA/LYMPHOMA (FCLL) REFLEX (06/23/2025 11:49 AM EST) ComponentValueRef RangeTest MethodAnalysis TimePerformed AtPathologist SignatureInterpretationThere is no immunophenotypic evidence of involvement by a B-cell lymphoproliferative disorder in this limited low cellularity sample. Correlation with the histopathologic and clinical findings is suggested. SB/ACM June 26 5:43 PM [facility] at 1218 ESTResults Specimen type: Lymph node biopsy Morphology comments: See concurrent surgical pathology report ([id number] ) Viability: 100% Lymphocyte gate: 8% of total events A limited flow cytometric analysis was performed on the lymph node biopsy due to very low cell yield. Antibodies to CD5, CD10, CD19, CD20, CD23, CD45, CD123, CD200, and kappa and lambda surface lightchains were used. Few CD5 positive T cells and virtually no B cells are detected.07/04/2025 5:43 PM [facility] LABGross DescriptionA. Lymph Node, Biopsy Received one thread of tissue measuring 1.0 cm in length in RPMI.07/04/2025 5:43 PM [facility] LABDiagnosis CommentThis test was developed and its performance characteristics determined by [facility]'s [facility] [place] ([facility]). It has not been cleared or approved by the FDA. -[facility] is regulated under CLIA as qualified to perform high-complexity testing. Thistest is used for clinical purposes. It should not be regarded as investigational or for research. 07/04/2025 5:43 PM [facility] LABPerforming LabDiagnostic interpretation performed at [facility], [address] [place] [address] CLIA# [id number] Sales Review Clerk: Josué Bach M.D.07/04/2025 5:43 PM [facility] LABSpecimen (Source)Anatomical Location / LateralityCollection Method / VolumeCollection TimeReceived TimeTissueLYMPH NODE BIOPSY SPECIMEN / Pjxflyi7006/23/2025 11:49 AM EST06/23/2025 3:06 PM ESTComment:Pre-op diagnosis: Malignant neoplasm of overlapping sites of right lung (HCC) [C34.81] Narrative Authorizing ProviderResult TypeResult StatusEunice Skinny Osorio MDSURGICAL PATHOLOGY Final ResultPerforming OrganizationAddressCity/State/ZIP CodePhone Number [facility] [address] [place] [address], * SURGICAL PATHOLOGY (06/23/2025 11:49 AM EST)ComponentValueRef RangeTest Method Analysis TimePerformed AtPathologist SignatureCase ReportSurgical Pathology Report ? Case: [id number] ? Authorizing Provider: ??Jackie Osorio MD ? Collected: ? 06/23/2025 11:49 AM ? Ordering Location: ? [facility] ?Received: ?06/23/2025 12:10 PM ? RADIOLOGY ? Pathologist: ? Celsa Bey MD ? Specimens: ?? A) - Lymph Node, Biopsy, Right lymph node biopsy ? B) - Lymph Node, Biopsy, Right lymph node biopsy ? 07/04/2025 5:43 PM [facility] LABFINAL DIAGNOSISA, B. Right cervical lymph node, biopsy: - Metastatic carcinoma containing a glandular component, see comment.07/04/2025 5:43 PM [facility] at 1743 ESTDiagnosis CommentThe carcinoma shows similar morphology to the metastasis evaluated previously ([id number]). Immunohi stochemical stains for p40 and TTF in this sample are negative, while a mucin stain is positive. The combined morphology and staining pattern suggest a common primary for the metastases, likely originating from the imaged lung mass. Such cancers may contain both squamous and glandular elements thatcan metastasize in different proportions. In this biopsy the glandular component is well represented. Intradepartmental consultation with Dr. Rod, with agreement. The findings were discussed with Dr. Gracia July 04, 2025.07/04/2025 5:43 PM [facility] LABGross DescriptionA. Lymph Node, Biopsy Received in formalin are multiple segments of cylindrical tissue aggregating to 3.0 x 0.1 x 0.1 cm,hernández-red and of a soft and friable consistency. Totally submitted in two cassettes. B. Lymph Node, Biopsy Received fresh on Telfa gauze are two segments of cylindrical tissue aggregating to 4.1 x 0.1 x 0.1cm, hernández-red and of a soft and friable consistency. A portion is submitted for flow cytometry. The remainder is totally submitted in formalin in one cassette. 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 Biopsy to confirm the diagnosis. LOR07/04/2025 5:43 PM [facility] LABPerforming Lab Diagnostic interpretation performed at: [facility], [facility] [id number] CLIA# [id number] Sales Review Clerk: Josué Bach MD 07/04/2025 5:[address] [facility] LABDisclaimerLaboratory Developed Test (LDT) Disclaimer: Performance characteristics of immunohistochemical, immunofluorescent, and chromogenic in-situ hybridization tests have been determined by the performing laboratory within the [facility] Department of Pathology and Laboratory Medicine ([facility], [facility], [facility], [facility], [facility], [facility], or [facility]) in a manner consistent with CLIA requirements. One or more of these tests may not have been cleared or approved by the FDA. The [facility] Department of Pathology and Laboratory Medicineis regulated under CLIA as qualified to perform high-complexity testing. These tests are used for clinical purposes. These should not be regarded as investigational or for research. Positive and negative controls stain appropriately.07/04/2025 5:[address] [facility] LABSpecimen (Source)Anatomical Location / Laterality Collection Method / VolumeCollection TimeReceived TimeTissueLYMPH NODE BIOPSY SPECIMEN / Twzolme5506/23/2025 11:49 AM EST06/23/2025 12:10 PM ESTComment:Right cervical lymph node biopsyTissue specimen (specimen)LYMPH NODE BIOPSY SPECIMEN / Wazries2706/23/2025 11:50 AM EST06/23/2025 12:10 PM ESTComment:Lymphoma work up Narrative Authorizing ProviderResult TypeResult StatusEunice Skinny Osorio MDSURGICAL PATHOLOGY Final ResultPerforming OrganizationAddressCity/State/ZIP CodePhone Number [place] [phone], * NM PET/CT SKULL-THIGH SUBSEQUENT (06/13/2025 3:10 PM EST)Anatomical Region LateralityModalityNuclear Medicine, Nuclear MedicineSpecimen (Source) Anatomical Location / LateralityCollection Method / VolumeCollection Time Received Time06/13/2025 3:10 PM EST Narrative 06/13/2025 4:34 PM EST * * *Final Report* * * DATE OF EXAM: Jun 13 2025 ??3:10PM ?? NRN ?? 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 * * * * Physician Interpretation * * * * RESULT: EXAMINATION: BODY FDG PET-CT CLINICAL HISTORY: 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), follow-up examination. EXAM CATEGORY: Subsequent treatment strategy. TECHNIQUE: Radiopharmaceutical was administered intravenously followed by PET imaging from the eyes to thighs. ??Free breathing, low dose CT of the same body region was acquired without IV contrast for attenuation correction and anatomic localization. ??Unenhanced imaging is limited for the evaluation of some pathology and the acquired CT was not designed to produce diagnostic CT scan quality. ??Physiologic/non-pathologic uptake in some body regions could confound or obscure some pathology. * ??CT Dose-Length Product (DLP): 229 mGy*cm * ??CT Dose Reduction Employed: Yes * ??Blood glucose: 100 mg/dL * ??Injection site: Right Forearm-Antecubital * ??Injected activity: 10.1 mCi * ??Uptake Time: 58 minutes * ??Radiopharmaceutical: Z54-Cqdhwstarzgmmzpwce (FDG) COMPARISON: FDG PET/CT scan dated 04/07/2025 CORRELATION: None. RESULT: REFERENCES: FDG uptake is used as a surrogate marker for glucose metabolism. ??All reported standardized uptake values represent maximum SUV (SUVmax) per body weight, unless otherwise specified. ??SUV reference values, as follows: * ??Blood Pool (Descending Aorta): SUVmax 1.8 * ??Background Liver: SUVmax 2.4; SUVmean 1.8 Localizer Images: No additional findings. HEAD AND NECK: Head: No radiotracer avid lesion or mass effect in the imaged intracranial compartment. Aerodigestive Tract: No radiotracer avid lesion. Lymph Nodes: Interval increase in size of the right lower cervical/supraclavicular lymph node, now with SUV max 38.8 (previously 36) and now measuring 5.1 x 5 cm in axial dimension (series 4, image 43). Interval increase in size of the adjacent lymph node, now measuring approximately 1.5 x 1.1 cm (previously 1.1 x 0.9 cm, now with SUV max of 15.5 (previously 22). ??Also noted is a new adjacent small lymph node, with an SUV max of 10.6. Neck Soft Tissues: Again noted are postoperative changes of the right neck with multiple surgical clips. ??Interval decrease in the diffuse uptake noted within the thyroid gland, now with SUV max of 3.3 (previously 9.8). CHEST: Lungs & Pleura: Interval increase in size and metabolism of the medial left upper lobe suprahilar/perihilar mass, now with SUV max 23.3 (previously 21.1) measuring approximately 5.2 x 5.5 cm in axial dimension (previously 4.2 x 3.9 cm). ??Persistent adjacent consolidative and patchy opacities as well as interlobular septal thickening in the apical portion of the left upper lobe. Interval development of patchy, groundglass attenuation opacities with associated interlobular septal thickening in the apical portion of the right upper lobe with areas of abnormal uptake within it; for reference SUV max of 3.8 in the lateral subpleural aspect, SUV max of 3.5 in the anterior apical aspect, SUV max of 4.2 in the medial aspect; these opacities partly obscure the previously noted pleural-based density. ?? Tiny left pleural effusion; decreased in the interim. Lymph Nodes: Persistent uptake in the left hilar region that is contiguous with the previously described left upper lobe lung mass, likely related to persistent lymphadenopathy. ??No hypermetabolic mediastinal lymphadenopathy. Mediastinum: No radiotracer avid mass. Cardiovascular: Blood pool activity. ??No pericardial effusion. ??Normal heart size. Chest Wall: No radiotracer avid soft tissue lesion. ABDOMEN AND PELVIS: Hepatobiliary: No radiotracer avid lesion. ??No measurable mass. ??No calcified gallstones. Spleen: No radiotracer avid lesion. ??No splenomegaly. Pancreas: No radiotracer avid lesion. Adrenals: No radiotracer avid nodule. Urinary Tract: Physiologic radiotracer excretion in the renal collecting systems and urinary bladder. ??No hydronephrosis. GI Tract: No radiotracer avid lesion. ??No bowel dilation. Peritoneum: No radiotracer avid lesion. ??No ascites. Lymph Nodes: No radiotracer avid lymphadenopathy. Vasculature: Blood pool activity. ??Vascular calcifications without an abdominal aortic aneurysm. Pelvic Organs: No radiotracer avid lesion. ??Stable small density within the urinary bladder measuring approximately 6 mm tiny bladder calculus versus small calcification. MUSCULOSKELETAL: Bones: Again noted is an expansile lytic/destructive osseous metastasis lesion along the dorsal superior right glenoid, , portion of the coronoid process; pattern of uptake has slightly changed in configuration, now with SUV max 15.2 (previously SUV max 13). ?? Again identified is an infiltrative lytic right iliac lesion with minimally FDG uptake, SUV max 1.5; similar to previous examination. Soft Tissues: No radiotracer avid lesion. ??Small fat-containing umbilical hernia. IMPRESSION Since prior PET/CT scan dated 04/07/2025, PRIMARY DISEASE SITE: * ??Interval increase in size and metabolism of the left upper lobe lung mass, compatible with progression of malignancy. RIO DISEASE: * ??Progression of metastatic lymphadenopathy. METASTATIC DISEASE: * ??Persistent, osseous metastatic disease. ADDITIONAL FINDINGS: * ??Interval development of mildly hypermetabolic airspace opacities in the right upper lobe, likely of infectious/inflammatory etiology. ??CT scan of the chest in 4-6 weeks or as clinically indicated for follow-up. * ??Interval decrease in uptake within the thyroid gland. Transcribe Date/Time: Jun 13 2025 ??3:10P Dictated by: TIMA VILLATORO MD This examination was interpreted and the report reviewed and electronically signed by: TIMA VILLATORO MD on Jun 13 2025 ??4:32PM ??EST Thank you for allowing us to participate in the care of your patient. Should there be any questions regarding this interpretation, please call [phone]. If you are unable to reach us at the number above, please feel free to contact [facility] at [phone]. Procedure Note Provider, [facility] [place] - 06/13/2025 * * *Final Report* * * DATE OF EXAM: Jun 13 2025 3:10PM NRN [id number] - NM PET/CT SKULL-THIGH SUBQ / PROCEDURE REASON: 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) * * * * Physician Interpretation * * * * RESULT: EXAMINATION: BODY FDG PET-CT CLINICAL HISTORY: 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), follow-up examination. EXAM CATEGORY: Subsequent treatment strategy. TECHNIQUE: Radiopharmaceutical was administered intravenously [...] some pathology. * CT Dose-Length Product (DLP): 229 mGy*cm * CT Dose Reduction Employed: Yes * Blood glucose: 100 mg/dL * Injection site: Right Forearm-Antecubital * Injected activity: 10.1 mCi * Uptake Time: 58 minutes * Radiopharmaceutical: I39-Cfnnvdeylrskopyleu (FDG) COMPARISON: FDG PET/CT scan dated 04/07/2025 CORRELATION: None. RESULT: REFERENCES: FDG uptake is used as a surrogate marker for glucose metabolism. All reported standardized uptake values represent maximum SUV (SUVmax) per body weight, unless otherwise specified. SUV reference values, as follows: * Blood Pool (Descending Aorta): SUVmax 1.8 * Background Liver: SUVmax 2.4; SUVmean 1.8 Localizer Images: No additional findings. HEAD AND NECK: Head: No radiotracer avid lesion or mass effect in the imaged intracranial compartment. Aerodigestive Tract: No radiotracer avid lesion. Lymph Nodes: Interval increase in size of the right lower cervical/supraclavicular lymph node, now with SUV max 38.8 (previously 36) and now measuring 5.1 x 5 cm in axial dimension (series 4, image 43). Interval increase in size of the adjacent lymph node, now measuring approximately 1.5 x 1.1 cm (previously 1.1 x 0.9 cm, now with SUV max of 15.5 (previously 22). Also noted is a new adjacent small lymph node, with an SUV max of 10.6. Neck Soft Tissues: Again noted are postoperative changes of the right neck with multiple surgical clips. Interval decrease in the diffuse uptake noted within the thyroid gland, now with SUV max of 3.3 (previously 9.8). CHEST: Lungs & Pleura: Interval increase in size and metabolism of the medial left upper lobe suprahilar/perihilar mass, now with SUV max 23.3 (previously 21.1) measuring approximately 5.2 x 5.5 cm in axial dimension (previously 4.2 x 3.9 cm). Persistent adjacent consolidative and patchy opacities as well as interlobular septal thickening in the apical portion of the left upper lobe. Interval development of patchy, groundglass attenuation opacities with associated interlobular septal thickening in the apical portion of the right upper lobe with areas of abnormal uptake within it; for reference SUV max of 3.8 in the lateral subpleural aspect, SUV max of 3.5 in the anterior apical aspect, SUV max of 4.2 in the medial aspect; these opacities partly obscure the previously noted pleural-based density. Tiny left pleural effusion; decreased in the interim. Lymph Nodes: Persistent uptake in the left hilar region that is contiguous with the previously described left upper lobe lung mass, likely related to persistent lymphadenopathy. No hypermetabolic mediastinal lymphadenopathy. Mediastinum: No radiotracer avid mass. Cardiovascular: Blood pool activity. No pericardial effusion. Normal heart size. Chest Wall: No radiotracer avid soft tissue lesion. ABDOMEN AND PELVIS: Hepatobiliary: No radiotracer avid lesion. No measurable mass. No calcified gallstones. Spleen: No radiotracer avid lesion. No splenomegaly. Pancreas: No radiotracer avid lesion. Adrenals: No radiotracer avid nodule. Urinary Tract: Physiologic radiotracer excretion in the renal collecting systems and urinary bladder. No hydronephrosis. GI Tract: No radiotracer avid lesion. No bowel dilation. Peritoneum: No radiotracer avid lesion. No ascites. Lymph Nodes: No radiotracer avid lymphadenopathy. Vasculature: Blood pool activity. Vascular calcifications without an abdominal aortic aneurysm. Pelvic Organs: No radiotracer avid lesion. Stable small density within the urinary bladder measuring approximately 6 mm tiny bladder calculus versus small calcification. MUSCULOSKELETAL: Bones: Again noted is an expansile lytic/destructive osseous metastasis lesion along the dorsal superior right glenoid, , portion of the coronoid process; pattern of uptake has slightly changed in configuration, now with SUV max 15.2 (previously SUV max 13). Again identified is an infiltrative lytic right iliac lesion with minimally FDG uptake, SUV max 1.5; similar to previous examination. Soft Tissues: No radiotracer avid lesion. Small fat-containing umbilical hernia. IMPRESSION Since prior PET/CT scan dated 04/07/2025, PRIMARY DISEASE SITE: * Interval increase in size and metabolism of the left upper lobe lung mass, compatible with progression of malignancy. RIO DISEASE: * Progression of metastatic lymphadenopathy. METASTATIC DISEASE: * Persistent, osseous metastatic disease. ADDITIONAL FINDINGS: * Interval development of mildly hypermetabolic airspace opacities in the right upper lobe, likely of infectious/inflammatory etiology. CT scan of the chest in 4-6 weeks or as clinically indicated for follow-up. * Interval decrease in uptake within the thyroid gland. Transcribe Date/Time: Jun 13 2025 3:10P Dictated by: TIMA VILLATORO MD This examination was interpreted and the report reviewed and electronically signed by: TIMA VILLATORO MD on Jun 13 2025 4:32PM EST Thank you for allowing us to participate in the care of your patient. Should there be any questions regarding this interpretation, please call [phone]. If you are unable to reach us at the number above, please feel free to contact [facility] at [phone]. Authorizing ProviderResult TypeResult StatusAdarsnoah Gracia MDNM-PAMAFinal Result * GLUCOSE, BLOOD (POC) (06/13/2025 1:31 PM EST)ComponentValueRef RangeTest MethodAnalysis TimePerformed AtPathologist SignatureGlucose, Point of Smsu0950 - 99 mg/dLSMunson Healthcare Otsego Memorial HospitalComment: Location:[facility] [address] [place], [place], [address] The Accu-Chek Inform II glucose meter has not been approved for testing on patients receiving intensive medical intervention or therapy and results from this point of care glucose test should not be used for patient management decisions in these cases. ??Inaccurate results may also occur from other interfering factors, such as N-acetylcysteine (blood concentrations of greater than 5mg/dL), galactose, extremes of hematocrit (<10 or >65), or high doses of ascorbic acid (vitamin C) greater than 3mg/dL. ??Consider alternate testing mechanisms (e.g. core lab, blood gas instrument) in the above situations. Specimen (Source)Anatomical Location / LateralityCollection Method / Volume Collection TimeReceived Time06/13/2025 1:31 PM EST Narrative Authorizing ProviderResult TypeResult StatusCcf ProviderPOC TESTINGFinal Result Performing OrganizationAddressCity/State/ZIP CodePhone Number [facility] POINT OF CARE [facility] [address] [place] [address] Dr. [place], [place] * US THYROID/PARATHYROID (06/12/2025 1:25 PM EST)Anatomical RegionLaterality ModalityNeckUltrasoundSpecimen (Source)Anatomical Location / Laterality Collection Method / VolumeCollection TimeReceived Time06/12/2025 1:25 PM EST Impressions 06/13/2025 10:32 AM EST IMPRESSION: Thyroid nodule(s) is/are present. ??Fine needle aspiration is recommended if not previously performed. TI-RADS Category: TR3 ACR Recommendation: TI-RADS 3 nodule. FNA is recommended for nodules measuring greater than 2.5cm. ACR recommendations are strictly based on the size and imaging appearance at the time of the exam and do not consider stability or previous biopsy results. Forge Helper: PSCB ?? Transcribe Date/Time: Jun 13 2025 10:23A Dictated by : YEN ROBERT MD This examination was interpreted and the report reviewed and electronically signed by: YEN ROBERT MD on Jun 13 2025 10:30AM ??EST Narrative 06/13/2025 10:32 AM EST * * *Final Report* * * DATE OF EXAM: Jun 12 2025 ??1:25PM ?? LNU ?? 1048 ??- ??US THYROID/PARATHYROID ??/ PROCEDURE REASON: Multiple thyroid nodules ? * * * * Physician Interpretation * * * * EXAMINATION: ??THYROID ULTRASOUND CLINICAL HISTORY: Multiple thyroid nodules TECHNIQUE: ??Sonography and Doppler imaging of the thyroid was performed. ?? Images were obtained and stored in a permanent archive. MQ: ??UST_1 COMPARISON: 04/21/2018 RESULT: Right Lobe: ??6.1 x 1.9 x 1.9 cm; heterogeneous echogenicity, expected vascular flow. Left Lobe: ??5.4 x 2.7 x 1.5 cm; heterogeneous echogenicity, expected vascular flow. Isthmus: 0.3 cm The most suspicious thyroid nodule(s) (up to four) as below: NODULE 1: Location: Right lower pole Size: 2.2 x 1.7 x 1.4 cm, previously 2.4 x 1.8 x 1.7 cm. Characteristics: ? Composition: ??Solid or almost completely solid, 2 points ? Echogenicity: Isoechoic, 1 point ? Shape: ??Kqexi-zhwz-bpxr, 0 points ? Margin: Smooth, 0 points ? Echogenic foci (add points for all that apply): ??None, 0 points ? Internal vascularity: ??absent ? Interval growth: ??Stable TI-RADS Category: TR3 ACR Recommendation: TI-RADS 3 nodule. ??Follow-up imaging at 1, 3 and 5 years is recommended. NODULE 2: Location: Left lower pole Size: 2.5 x 2.0 x 1.4 cm, previously 3.6 x 2.0 x 2.0 cm. Characteristics: ? Composition: ??Solid or almost completely solid, 2 points ? Echogenicity: Isoechoic, 1 point ? Shape: ??Wrlqe-llng-xcru, 0 points ? Margin: Smooth, 0 points ? Echogenic foci (add points for all that apply): ??None, 0 points ? Internal vascularity: ??present ? Interval growth: ??Stable TI-RADS Category: TR3 ACR Recommendation: TI-RADS 3 nodule. FNA is recommended for nodules measuring greater than 2.5cm. NODULE 3: Location: Left mid Size: 1.3 x 1.2 x 0.9 cm Characteristics: ? Composition: ??Solid or almost completely solid, 2 points ? Echogenicity: Hyperechoic, 1 point ? Shape: ??Jculb-rsva-qcak, 0 points ? Margin: Smooth, 0 points ? Echogenic foci (add points for all that apply): ??None, 0 points ? Internal vascularity: ??absent ? Interval growth: ??Not clearly identified on the prior study TI-RADS Category: TR3 ACR Recommendation: TI-RADS 3 nodule. ??No FNA or further imaging is advised. Procedure Note Provider, [facility] [place] - 06/13/2025 * * *Final Report* * * DATE OF EXAM: Jun 12 2025 1:25PM [place] [id number] - THYROID/PARATHYROID / PROCEDURE REASON: Multiple thyroid nodules * * * * Physician Interpretation * * * * EXAMINATION: THYROID ULTRASOUND CLINICAL HISTORY: Multiple thyroid nodules TECHNIQUE: Sonography and Doppler imaging of the thyroid was performed. Images were obtained and stored in a permanent archive. MQ: UST_1 COMPARISON: 04/21/2018 RESULT: Right Lobe: 6.1 x 1.9 x 1.9 cm; heterogeneous echogenicity, expected vascular flow. Left Lobe: 5.4 x 2.7 x 1.5 cm; heterogeneous echogenicity, expected vascular flow. Isthmus: 0.3 cm The most suspicious thyroid nodule(s) (up to four) as below: NODULE 1: Location: Right lower pole Size: 2.2 x 1.7 x 1.4 cm, previously 2.4 x 1.8 x 1.7 cm. Characteristics: Composition: Solid or almost completely solid, 2 points Echogenicity: Isoechoic, 1 point Shape: Mqhso-rprv-mcaz, 0 points Margin: Smooth, 0 points Echogenic foci (add points for all that apply): None, 0 points Internal vascularity: absent Interval growth: Stable TI-RADS Category: TR3 ACR Recommendation: TI-RADS 3 nodule. Follow-up imaging at 1, 3 and 5 years is recommended. NODULE 2: Location: Left lower pole Size: 2.5 x 2.0 x 1.4 cm, previously 3.6 x 2.0 x 2.0 cm. Characteristics: Composition: Solid or almost completely solid, 2 points Echogenicity: Isoechoic, 1 point Shape: Fgbws-zlzb-eucd, 0 points Margin: Smooth, 0 points Echogenic foci (add points for all that apply): None, 0 points Internal vascularity: present Interval growth: Stable TI-RADS Category: TR3 ACR Recommendation: TI-RADS 3 nodule. FNA is recommended for nodules measuring greater than 2.5cm. NODULE 3: Location: Left mid Size: 1.3 x 1.2 x 0.9 cm Characteristics: Composition: Solid or almost completely solid, 2 points Echogenicity: Hyperechoic, 1 point Shape: Yyqpe-intp-maks, 0 points Margin: Smooth, 0 points Echogenic foci (add points for all that apply): None, 0 points Internal vascularity: absent Interval growth: Not clearly identified on the prior study TI-RADS Category: TR3 ACR Recommendation: TI-RADS 3 nodule. No FNA or further imaging is advised. IMPRESSION IMPRESSION: Thyroid nodule(s) is/are present. Fine needle aspiration is recommended if not previously performed. TI-RADS Category: TR3 ACR Recommendation: TI-RADS 3 nodule. FNA is recommended for nodules measuring greater than 2.5cm. ACR recommendations are strictly based on the size and imaging appearance at the time of the exam and do not consider stability or previous biopsy results. Forge Helper: JEANETTE Transcribe Date/Time: Jun 13 2025 10:23A Dictated by : YEN ROBERT MD This examination was interpreted and the report reviewed and electronically signed by: YEN ROBERT MD on Jun 13 2025 10:30AM EST Authorizing ProviderResult TypeResult StatusShawna Card MD, PhDUS-PAMAFinal Result * NITRIC OXIDE, EXHALED (04/18/2025 8:46 AM EDT)Specimen (Source)Anatomical Location / LateralityCollection Method / VolumeCollection TimeReceived Time 04/18/2025 8:46 AM EDT Narrative Jud Sheppard RRT - 04/18/2025 8:47 AM EDT Jud Sheppard RRT 04/18/2025 8:47 AM RESPIRATORY THERAPY ORAL EXHALED NITRIC OXIDE SERVICE DATE: 04/18/2025 SERVICE TIME: ??8:47 AM Oral Exhaled Nitric Oxide measurement: 11.0 (ppb) Normal: Adult <25 ppb, pediatric (<12 years) <20 ppb High Normal / Increased: Adult 25-50 ppb, pediatric (<12 years) 20-35 ppb Moderately raised exhaled Nitric Oxide may indicate underlying inflammation, but note that: Cold and influenza can raise exhaled Nitric Oxide and some patients have higher baseline exhaled Nitric Oxide levels than others. High: Adult >50 ppb, pediatric (<12 years) >35 ppb Indicative of ongoing eosinophilic inflammation. Symptomatic patient likely to respond to steroids. Possible causes (if already on steroids): Poor compliance, recent allergen exposure, steroid dose inadequate, and steroid resistance. Note that not all patients with high exhaled nitric oxide levels display symptoms. Oral Exhaled Nitric Oxide measurement (Previous Encounters) ?? Test Date Oral Exhaled Nitric Oxide (ppb) 04/18/2025 11.0 NAME: Jud Sheppard RRT PATIENT NAME: Ruperto Saravia DATE: April 18, 2025 TIME: 8:47 AM ?? Authorizing ProviderResult TypeResult StatusBrynn Manjarrez MDSCHEDULED PROCEDURES Final Result * SPIROMETRY - BASELINE AND POST DILATOR (04/18/2025 8:22 AM EDT)ComponentValue Ref RangeTest MethodAnalysis TimePerformed AtPathologist SignatureFVC PRE (L) 3.05LPULMONARY FUNCTION LABFVC POST (L)3.20LPULMONARY FUNCTION LABFVC PREDICTED (L)3.23LPULMONARY FUNCTION LABFVC LLN (L)2.29LPULMONARY FUNCTION LAB FVC ULN (L)4.19LPULMONARY FUNCTION LABFEV1 PRE (L)2.30LPULMONARY FUNCTION LAB FEV1_POST (L)2.42LPULMONARY FUNCTION LABFEV1 PREDICTED (L)2.49LPULMONARY FUNCTION LABFEV1 LLN (L)1.74LPULMONARY FUNCTION LABFEV1 ULN (L)3.19LPULMONARY FUNCTION LABFEV1/FVC PRE (%)75%PULMONARY FUNCTION LABFEV1/FVC POST (%)76% PULMONARY FUNCTION LABFEV1/FVC PREDICTED (%)78%PULMONARY FUNCTION LABFEV1/FVC LLN (%)66%PULMONARY FUNCTION LZCJIW47% PRE (L/S)4.38L/SPULMONARY FUNCTION LAB FEF25% POST (L/S)4.36L/SPULMONARY FUNCTION NJJXOB22% PRE (L/S00.54L/SPULMONARY FUNCTION IKFFAN07% POST (L/S)0.91L/SPULMONARY FUNCTION BJILDI78% PREDICTED (L/S)0.54L/SPULMONARY FUNCTION ZTDCCT51% LLN (L/S)0.20L/SPULMONARY FUNCTION JUGGDQ32% ULN (L/S)1.40L/SPULMONARY FUNCTION PTZILM13-96% PRE (L/S)1.63L/S PULMONARY FUNCTION YHQUTP66-27% POST (L/S)2.21L/SPULMONARY FUNCTION MIKVXM35- 75% PREDICTED (L/S)2.08L/SPULMONARY FUNCTION MIOVIU14-48% LLN (L/S)0.98L/S PULMONARY FUNCTION LABPEF PRE (L/S)5.01L/SPULMONARY FUNCTION LABPEF POST (L/S) 5.40L/SPULMONARY FUNCTION LABPEF LLN (L/S)4.42L/SPULMONARY FUNCTION LABPEF ULN (L/S)8.26L/SPULMONARY FUNCTION LABFET PRE (S)8.50SPULMONARY FUNCTION LABFET POST (S)7.85SPULMONARY FUNCTION LABSpecimen (Source)Anatomical Location / LateralityCollection Method / VolumeCollection TimeReceived Time04/18/2025 8:22 AM EDT Narrative PULMONARY FUNCTION LAB - 04/19/2025 10:50 AM EDT [facility] [place] ? [address] [place] [address] [place] [address] ? Test Date: ? 2025-04-18 Pat Name: ?RUPERTO RANI ?Department: ? Room: ? Gender: ?Female ?Rod Placer: ? : ? 1955 ?Requested By: ?? Order Number: ??[id number] ? Reading : ?Trina Feliz MD ? Interpretive Statements Difficult testing session due to previous stroke. ??PRE BD: The two largest FVCs were repeatable. ??The two largest FEV1s were repeatable. ??Suspected glottic closure due to abrupt early termination of expiration. All patient efforts were consistent. Time to Peak Flow greater than ATS/ERS standard, FEV1 may not be valid. Extrapolated volume greater than ATS/ERS allows; FEV1 may not be valid. Best test reported. ??Medications and Allergies were reviewed for possible drug interactions per policy. No contraindications or sensitivities were noted. Meds taken: NONE before testing. 2 puffs Albuterol (180 mcg) delivered by MDI via holding chamber. HR pre = ??95 /min, HR post = 82 /min. ??POST BD: The two largest FVCs were repeatable. ??The two largest FEV1s were repeatable. ??Slight early termination of expiration due to glottic closure from cough during exhalation. //LW IMPRESSION: Spirometry is normal. Flow-volume loops appear normal. There is no significant bronchodilator response. Electronically Signed On 04-19-2025 10:50:37 EDT by Trina Feliz MD ID: [id number] ?Name: RUPERTO SARAVIA ?Race: White Ht: 67.72 in ?Wt: 164.24 lbs ?Age: 69 Gender: Female ?: 1955 ?Dx: Acute Cough Smoking Hx: Non-smoker ?Doctor: BRYNN MANJARREZ Test Date: 04/18/2025 ?Site: [facility] ?Tech: Jud Sheppard ?PRE-BRONCH ? POST-BRONCH ?Erma ?LLN ?? Pred ?ULN %Pred ZScore ?? Erma %Pred ??%Chg ZScore SPIROMETRY FVC ? 3.05 ?? 2.29 ?? 3.23 ?? 4.19 ?94 ??-0.30 ?? 3.20 ?99 ? 4 ??-0.05 FEV1 ?2.30 ?? 1.74 ?? 2.49 ?? 3.19 ?92 ??-0.44 ?? 2.42 ?97 ? 4 ??-0.17 FEV1/FVC ?0.75 ?? 0.66 ?? 0.78 ?? 0.88 ?96 ??-0.43 ?? 0.76 ?96 ? 0 ??-0.36 FEFMax ?5.01 ?? 4.42 ?? 6.34 ?? 8.26 ?79 ??-1.14 ?? 5.40 ?85 ? 7 ??-0.81 FEF50 ? 2.47 ?? 1.83 ?? 3.44 ?? 5.05 ?71 ??-0.99 ?? 2.67 ?77 ? 8 ??-0.79 FIF50 ? 3.90 ? 3.48 ? -10 ? FEF50/FIF50 ? 0.63 ?90-100 ? 0.77 ?21 ? FIVC ?2.87 ? 2.95 ? 2 ? NSU52-14 ?1.63 ?? 0.98 ?? 2.08 ?? 3.64 ?78 ??-0.60 ?? 2.21 ?? 106 ?35 ?? 0.15 ExpiredTime ? 8.50 ? 7.85 ?-7 ? TimeToFEFMax ?0.16 ? 0.09 ? -42 ? RODRIGUEZ ? 0.20 ? 0.09 ? -58 ? VolExtrap% ? 7 ?3 ? -59 ? Comments: Difficult testing session due to previous stroke. ??PRE BD: The two largest FVCs were repeatable. ??The two largest FEV1s were repeatable. ?? Suspected glottic closure due to abrupt early termination of expiration. All patient efforts were consistent. Time to Peak Flow greater than ATS/ERS standard, FEV1 may not be valid. Extrapolated volume greater than ATS/ERS allows; FEV1 may not be valid. ??Best test reported. ??Medications and Allergies were reviewed for possible drug interactions per policy. No contraindications or sensitivities were noted. Meds taken: NONE before testing. 2 puffs Albuterol (180 mcg) delivered by MDI via holding chamber. HR pre = ??95 /min, HR post = 82 /min. ??POST BD: The two largest FVCs were repeatable. ??The two largest FEV1s were repeatable. ??Slight early termination of expiration due to glottic closure from cough during exhalation. ??//LW Authorizing ProviderResult TypeResult StatusRenee Manjarrez MDSCHEDULED PROCEDURES Final ResultPerforming OrganizationAddressCity/State/ZIP CodePhone Number [facility] [address] [place] [address] from Last 3 Months Insurance * Guarantor: Ruperto Saravia TypeRelation to PatientDate of BirthPhone Billing NisrucgUdwqcpXgrt68/07/1956 [address] [place] [address] Advance Directives TypeDate RecordedPatient RepresentativeExplanationAdvance Directive(s)12/12/2009 8:53 PM Care Teams Team MemberRelationshipSpecialtyStart DateEnd Date Gerson Gonzalez Jr., DO [address] [facility] [address] PCP - General08/24/01 Gerson Gonzalez Jr., DO [address] [facility] [address] ReferringInternal Lnbjjrmw07/18/24 Ghislaine Thakur RN [address] [place] [address] [place] [address] Specialty Care CoordinatorHematology/Oncology08/31/24 Nicholas Gracia MD [address] [place] [address] [place] [address] PhysicianHematology/Oncology08/31/24 Dianne Keller, SURESH.DIRECTOR OF GROUP COUNSELING PROGRAM [address] [place] [address] [place] [address] Hospice & Palliative Medicine08/31/24 Danielle Castellon LSW Social Worker09/29/24 Ramone Marcos RN Specialty Care CoordinatorHospice & Palliative Ipjbwpff09/13/25
--- OUTSIDE RECORDS SUMMARY | 2025-07-16 16:09 | XMS_ITS ---
Author Organization [facility] Address [facility] [place] [address] Care Team Providers Care Professional Tutor Name Role Phone Lisa Carson DO, Charles Lewis Primary Care Provi heladio Lisa Carson DO, Charles Lewis Unavailable [phone] Ghislaine Thakur RN Unavailable [phone] Nicholas Gracia MD Unavailable [phone] Dianne Keller APRN.COKEMAN Unavailable + Danielle Castellon Unavailable Unavailable Ramone Marcos RN Unavailable Unava ilable Active Problems ProblemNoted DateDiagnosed DateModerate recurrent major psvoqzhuvg03/30/2025 Malignant neoplasm of overlapping sites of right lung08/23/2024Obesity, Class I, BMI 30-34.9011/12/2021Vasomotor symptoms due to krtlymdcf06/26/2022Multiple thyroid wdrjvrn7311/12/2021Vertical /04/2014Unspecified disorder of muscle, ligament, and hldmaj4311/04/2012Myalgia and myositis, unspecified 05/07/2011rticular disc disorder (reducing or non-reducing) of temporomandibular joint04/24/20102312Zflojzx12/08/2010Cranial nerve paralysis 06/05/2009Paralytic strabismus, sixth or abducens nerve palsy06/01/2008 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 Post-op had deficits including left hemiparesis, left facial droop, dysarthria, diplopia. 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 Anxiety state, unspecified Current Treatment and Therapy Plans AMB BONE MODIFYING AGENT: $$$$ - Q6 WEEKS IF CRCL IS LESS THAN 30 ML/MIN - DENOSUMAB* Plan Start Date:09/14/2024 Plan Provider:Nicholas Gracia MD Linked Problems Malignant neoplasm of overla pping sites of right lung (HCC) Treatment MedicationsCurrent Day (Day 1, Cycle 1 - Planned for 09/14/2024)Next Day (Day 1, Cycle 2 - Planned for 10/26/2024)* * denosumab (XGEVA) * * denosumab 120 mg injection (XGEVA) * * denosumab 120 mg injection (XGEVA) AMB GEMCITABINE 1000 D1,8,15 - Q28D* Plan Start Date:07/11/2025 Plan Provider:Nicholas Gracia MD Linked Problems Malignant neoplasm of overla pping sites of right lung (HCC) Treatment MedicationsCurrent Day (Day 8, Cycle 1 - Planned for 07/18/2025)Next Day (Day 15, Cycle 1 - Planned for 07/25/2025)* * gemcitabine iv piggyback (GEMZAR) * * gemcitabine 1,920 mg in NaCl 0.9% 300.496 mL (GEMZAR) * * gemcitabine 1,920 mg in NaCl 0.9% 300.496 mL (GEMZAR) Past Treatment and Therapy Plans Plan NameStart DateDiscontinue DateTreatment MedicationsDiscontinue ReasonPlan ProviderCyclesAMB RAMUCIRUMAB 10 DOCETAXEL 75 D1 - Q21D5109/05/2024* DOCEtaxel iv piggyback (TaxoTERE) * ramucirumab iv piggyback (CYRAMZA) No Added BenefitVenneNicholas ruano MD3 of 6 cycles startedAMB PEMBROLIZUMAB 200 PACLITAXEL 200 CARBOPLATIN 6 D1 - Q21D THEN PEMBROLIZUMAB 200 D1 - Q21D /* CARBOplatin iv piggyback (PARAPLATIN) * fosaprepitant (EMEND) * fosaprepitant iv piggyback 150 mg in NaCl 0.9% 250 mL (EMEND) * PACLitaxel iv piggyback in 500 mL (TAXOL) * palonosetron (ALOXI) * pegfilgrastim-cbqv (UDENYCA ONBODY) * pembrolizumab IV infusion (KEYTRUDA) Luis M Alcantara DO6 of 6 cycles started
--- OUTSIDE RECORDS SUMMARY | 2025-07-16 16:09 | XMS_ITS | Encounter Summary ---
Author Organization [facility] Address [address] [place] [address] Care Team Providers Care Fuel Cell Test Engineer Name Role Phone Lisa Carson DO, Charles Lewis Primary Care Provi heladio Lisa Carson DO, Charles Lewis Unavailable [phone] Ghislaine Thakur RN Unavailable [phone] Nicholas Gracia MD Unavailable [phone] Dianne Keller APRN.MANAGER LAB Unavailable + Danielle Castellon Unavailable Unavailable Ramone Marcos RN Unavailable Unava ilable Source Comments In the event this information is protected by the Federal Confidentiality of Alcohol and Drug AbusePatient Records regulations: The Federal rules restrict any use of the information to criminally investigate or prosecute any alcohol or drug abuse patient.[facility] Encounter Details DateTypeDepartmentCare Team (Latest Contact Info)Zovhteyyowv62/16/2025Telephone Hematology/Oncology [address] [place] [address] [place] [address] Annamarie Lal, RN Social History Tobacco UseTypesPacks/DayYears UsedDateSmoking Tobacco: FormerCigarettes1.518 07/20/1981 - 07/20/1999Smokeless Tobacco: NeverAlcohol UseStandard Drinks/Week CommentsNo0 (1 standard drink = 0.6 oz pure alcohol)PHQ-2AnswerDate RecordedPHQ- 2 sftfh3665Area Deprivation IndexAnswerDate RecordedNational Score (1- 100), lower number is lower hrea484204/10/2023State Score (1-10), lower number is lower ldyb3503Data from: https://www.neighborhoodatlas.medicine.[facility].edu/. Last address used for kjaqppenrlf[address]CommentsNoSex and Gender Information ValueDate RecordedSex Assigned at BirthNot on fileLegal EweVonloq83/02/2012 9:48 AM ESTGender FlzyqcxcOowkih17/26/2022 11:07 AM EDTSexual OrientationNot on file OccupationIndustryJob Start DateJob End DatedisabledNot on fileNot on fileNot on filedocumented as of this encounter Functional Status * Are you deaf or do you have serious difficulty hearing?AnswerDate of BobjlqowotIlvkdbTwp49/27/2015 12:58 PM Penny Wills MA * Are you blind or do you have serious difficulty seeing, even when wearing glasses?AnswerDate of HqcfqvawvzApduabEqy40/27/2015 12:58 PM Penny Wills MA * Do you have serious difficulty walking or climbing stairs?AnswerDate of FvnmzbbalxCnbltsXj42/27/2015 12:58 PM Penny Wills MA * Do you have difficulty dressing or bathing?AnswerDate of AssessmentAuthorNo 09/15/2014 12:58 PM Penny Wills MA * Because of a physical, mental, or emotional condition, do you have difficulty doing errands alone such as visiting a doctor's office or shopping?AnswerDate of YbcbmoljbzYyuyepRmn42/27/2015 12:58 PM Penny Wills MA documented as of this encounter Mental Status * Because of a physical, mental, or emotional condition, do you have serious difficulty concentrating, remembering, or making decisions?AnswerEntry Date DcdxmeWn09/27/2015 12:58 PM Penny Wills MA documented in this encounter Miscellaneous Notes * Telephone Encounter - Annamarie Lal RN - 07/04/2025 1:11 PM EST Pended standing lab orders for treatment. Annamarie Lal RN documented in this encounter Plan of Treatment DateTypeDepartmentCare Team (Latest Contact Info)Yhmbzcglcig23/30/2025 2:15 PM ESTOffice Visit [facility] [address] [place] [address] [place] [address] follow up thumaclfinl42/30/2025 2:30 PM ESTVisit (SP) Office Hematology/Oncology [address] [place] [address] [place] [address] Vicki Soriano APRN.MANAGER LAB [address] [facility] [place] [address] follow up mpsbevvmtei58/30/2025 3:00 PM [facility] Hematology/Oncology [address] [facility] [place] [address] follow up vgeuolutcgt61/31/2025 1:00 PM [facility] Hematology/[place] [address] Luis M Silvestre, [address] [place] [address] VV FOLLOW UP07/25/2025 1:15 PM ESTOffice Visit [facility] [address] [facility] [address] lab follow up and chemotx Geiaam6107/25/2025 1:40 PM ESTVisit (SP) Office Hematology/Oncology [address] [place] [address] [place] [address] Miguel Sheridan MD [address] [place] [address] [place] [address] lab follow up and chemotx Cjnygz7007/25/2025 2:30 PM [facility] Hematology/Oncology [address] [place] [address] [place] [address] lab follow up and chemotx Rlksva9808/29/2025 10:30 AM ESTOffice Visit Palliative Medicine [address] [place] [address] [place] [address] Dianne Keller, TABLET TESTER.MANAGER LAB [address] [place] [address] 3 month follow up09/19/2025 1:40 PM ESTOffice Visit Endocrinology [address] [place] [address] Shawna Card MD, PhD [address] [place] [address] Return in about 6 months (around 09/14/2025).NameTypePriorityAssociated Diagnoses Order ScheduleCOMPLETE BLOOD COUNT AND DIFFERENTIALLabRoutine Malignant neoplasm of overlapping sites of right lung (HCC) Metastatic cancer to bone (HCC) Encounter for antineoplastic chemotherapy Every 3 weeks for 16 Occurrences starting 07/04/2025 until 07/04/2026, 1 completedCOMPREHENSIVE METABOLIC PANELLabRoutine Malignant neoplasm of overlapping sites of right lung (HCC) Metastatic cancer to bone (HCC) Encounter for antineoplastic chemotherapy Every 3 weeks for 16 Occurrences starting 07/04/2025 until 07/04/2026, 1 completedMAGNESIUMLabRoutine Malignant neoplasm of overlapping sites of right lung (HCC) Metastatic cancer to bone (HCC) Encounter for antineoplastic chemotherapy Every 3 weeks for 16 Occurrences starting 07/04/2025 until 07/04/2026, 1 completedTHYROID STIMULATING HORMONELabRoutine Malignant neoplasm of overlapping sites of right lung (HCC) Metastatic cancer to bone (HCC) Encounter for antineoplastic chemotherapy Hypothyroidism due to medication Every 3 weeks for 16 Occurrences starting 07/04/2025 until 07/04/2026, 1 completeddocumented as of this encounter Results * (ABNORMAL) THYROID STIMULATING HORMONE (07/11/2025 12:45 PM EST)ComponentValue Ref RangeTest MethodAnalysis TimePerformed AtPathologist SignatureTSH6.140(H) 0.270 - 4.200 mIU/L109/12/2024 5:05 AM ESTK[facility] LABSpecimen (Source)Anatomical Location / LateralityCollection Method / VolumeCollection TimeReceived TimeBloodBLOOD SPECIMEN / UnknownVenipuncture / Bdzzrbd5807/11/2025 12:45 PM EST07/11/2025 12:45 PM EST Narrative Authorizing ProviderResult TypeResult StatusMiguel Sheridan MDLABORATORYFinal ResultPerforming OrganizationAddressCity/State/ZIP CodePhone Number [facility] [address] [place] [address], * MAGNESIUM (07/11/2025 12:45 PM EST)ComponentValueRef RangeTest MethodAnalysis TimePerformed AtPathologist SignatureMagnesium1.71.7 - 2.3 mg/dL07/11/2025 1:26 PM EST[facility] LABSpecimen (Source)Anatomical Location / LateralityCollection Method / VolumeCollection TimeReceived Time BloodBLOOD SPECIMEN / UnknownVenipuncture / Kczbngi7407/11/2025 12:45 PM EST 07/11/2025 12:45 PM EST Narrative Authorizing ProviderResult TypeResult StatusMiguel DIANAORATORYFinal ResultPerforming OrganizationAddressCity/State/ZIP CodePhone Number [facility] [address] [place] [address] * (ABNORMAL) COMPREHENSIVE METABOLIC PANEL (07/11/2025 12:45 PM EST)Component ValueRef RangeTest MethodAnalysis TimePerformed AtPathologist Signature Protein, Total6.66.3 - 8.0 g/dL07/11/2025 1:26 PM [facility] LABAlbumin3.3(L)3.9 - 4.9 g/dL07/11/2025 1:26 PM [facility] LABCalcium, Total9.38.5 - 10.2 mg/dL07/11/2025 1:26 PM [facility] LABBilirubin, Total0.20.2 - 1.3 mg/dL 07/11/2025 1:26 PM [facility] LABAlkaline Gvmjtghcxdx7021 - 123 U/L109/11/2024 1:26 PM [facility] PCPPQK4267 - 35 U/L109/11/2024 1:26 PM [facility] YYTFJY3540 - 35 U/L109/11/2024 1:26 PM [facility] VIFLaxqpmn4996 - 99 mg/dL07/11/2025 1:26 PM [facility] LABComment: The [place] Diabetes Association (ADA) provides guidance for cutoff [...] Standards of Medical Care in Diabetes 2016, [place] [employer] Association. Diabetes Care. 2016.39(Suppl 1). RQQ722 - 21 mg/dL07/11/2025 1:26 PM [facility] Creatinine0.54(L)0.58 - 0.96 mg/dL07/11/2025 1:26 PM [facility] FWNUxsqak016773 - 144 mmol/L109/11/2024 1:26 PM [facility] LABPotassium4.13.7 - 5.1 mmol/L109/11/2024 1:26 PM EST [facility] QFYLrgccied1830 - 107 mmol/L109/11/2024 1:26 PM [facility] EYFGS96924 - 30 mmol/L109/11/2024 1:26 PM [facility] LABAnion Aem257 - 15 mmol/L109/11/2024 1:26 PM [facility] LABEstimated Glomerular Filtration Rate 100>=60 mL/min/1.73m 07/11/2025 1:26 PM ESTLOG[facility] LABComment:Estimated Glomerular Filtration Rate [...] VolumeCollection TimeReceived TimeBloodBLOOD SPECIMEN / UnknownVenipuncture / Ecmjkwm4507/11/2025 12:45 PM EST07/11/2025 12:45 PM EST Narrative Authorizing ProviderResult TypeResult StatusJoseafshan Sheridan MDLABORATORYFinal ResultPerforming OrganizationAddressCity/State/ZIP CodePhone Number [facility] [address] [place] [address] * (ABNORMAL) COMPLETE BLOOD COUNT AND DIFFERENTIAL (07/11/2025 12:45 PM EST) ComponentValueRef RangeTest MethodAnalysis TimePerformed AtPathologist NomjtfwrfSQM76.50(H)3.70 - 11.00 k/uL07/11/2025 12:48 PM ESTLOG[facility] LABRBC3.71(L)3.90 - 5.20 m/uL07/11/2025 12:48 PM EST [facility] FMKKkffiutntj43.4(L)11.5 - 15.5 g/dL 07/11/2025 12:48 PM EST[facility] CFGNrthnthlml23.1(L) 36.0 - 46.0 %07/11/2025 12:48 PM [facility] LABMCV 91.980.0 - 100.0 fL07/11/2025 12:48 PM [facility]NORTASC[facility] ZOYYVB67.026.0 - 34.0 pg07/11/2025 12:48 PM [facility] KDLWPVT53.530.5 - 36.0 g/dL07/11/2025 12:48 PM [facility] LABRDW-CV18.1(H)11.5 - 15.0 %07/11/2025 12:48 PM [facility] LABPlatelet Zmdaw329(H)150 - 400 k/uL07/11/2025 12:48 PM [facility] LABMPV9.29.0 - 12.7 fL07/11/2025 12:48 PM [facility] LABNeutrophils %80.5%07/11/2025 12:48 PM [facility] LABAbs Neut10.06(H)1.45 - 7.50 k/uL 07/11/2025 12:48 PM [facility] LABLymphocytes %8.1% 07/11/2025 12:48 PM [facility] LABAbs Lymph1.011.00 - 4.00 k/uL07/11/2025 12:48 PM [facility] LAB Monocytes %8.2%07/11/2025 12:48 PM [facility] LABAbs Mono1.03(H)<0.87 k/uL07/11/2025 12:48 PM [facility]NO[facility] LABEosinophils %2.4%07/11/2025 12:48 PM [facility] LABAbs Eosin0.30<0.46 k/uL07/11/2025 12:48 PM [facility]ASC[facility] LABBasophils %0.3%07/11/2025 12:48 PM [facility] LABAbs Baso0.04<0.11 k/uL07/11/2025 12:48 PM [facility] LABImmature Granulocytes %0.5%07/11/2025 12:48 PM [facility] LABAbs Immature Gran0.06<0.10 k/uL07/11/2025 12:48 PM [facility] LABNRBC0.0/100 WBC07/11/2025 12:48 PM EST [facility] LABAbsolute nRBC<0.01<0.01 k/uL07/11/2025 12:48 PM [facility] LABDiff XtlhAahu54/23/2025 12:48 PM [facility] LABSpecimen (Source)Anatomical Location / LateralityCollection Method / VolumeCollection TimeReceived Time BloodBLOOD SPECIMEN / UnknownVenipuncture / Ikbeocu6207/11/2025 12:45 PM EST 07/11/2025 12:45 PM EST Narrative Authorizing ProviderResult TypeResult StatusJoseafshan Sheridan MDLABORATORYFinal ResultPerforming OrganizationAddressCity/State/ZIP CodePhone Number [facility] [address] [place] [address] documented in this encounter Visit Diagnoses Diagnosis Malignant neoplasm of overlapping sites of right lung (HCC)- Primary Metastatic cancer to bone (HCC) Secondary malignant neoplasm of bone and bone marrow Encounter for antineoplastic chemotherapy Hypothyroidism due to medication documented in this encounter Care Teams Team MemberRelationshipSpecialtyStart DateEnd Date Gerson Gonzalez Jr., DO [address] [place] [phone] PCP - General08/24/01 Gerson Gonzalez Jr., DO [address] [place] [address] ReferringInternal Uatjxbai03/18/24 Ghislaine Thakur RN [address] [place] [address] [place] [address] Specialty Care CoordinatorHematology/Oncology08/31/24 Nicholas Gracia MD [address] [place] [address] [place] [address] PhysicianHematology/Oncology08/31/24 Dianne Keller APRN.MANAGER LAB [address] [place] [address] [place] [id number] Hospice & Palliative Medicine08/31/24 Danielle Castellon LSW Social Worker09/29/24 Ramone Marcos RN Specialty Care CoordinatorHospice & Palliative Zjvoyrjp96/13/25documented as of this encounter
--- OUTSIDE RECORDS SUMMARY | 2025-07-16 16:09 | XMS_ITS | Clinical Summary ---
Author Organization [facility] Address [address] [place] [address] Phone Care Team Providers Care Division Field Inspector Name Role Phone Gerson Gonzalez DO Primary Care Provider + [phone] Allergies No known active allergies Medications MedicationSigDispense QuantityRefillsLast FilledStart DateEnd DateStatus propranolol (Inderal) 60 mg tablet Take 1 tablet (60 mg) by mouth as needed at bedtime (tremor).12/28/2022ctive levothyroxine (Synthroid, Levoxyl) 25 mcg tablet Take 1 tablet (25 mcg) by mouth early in the morning..03/27/2023ctive FLUoxetine (PROzac) 20 mg capsule Take 1 capsule (20 mg) by mouth once daily.11/26/2022ctive meloxicam (Mobic) 15 mg tablet Take 1 tablet (15 mg) by mouth early in the morning..05/20/2024ctive Active Problems ProblemNoted DateDiagnosed DatePreoperative cardiovascular sybcahtptlj41/08/2024 BMI 31.0-31.9,adult05/27/2024Former jzqrih8405/27/2024cquired hypothyroidism 05/27/20248771Ajxdjo78/08/2024 Family History Medical HistoryRelationNameCommentsValvular heart diseaseBrother 1pacemaker Brother 2RelationNameStatusCommentsBrother 1Brother 2Alive Social History Tobacco UseTypesPacks/DayYears UsedDateSmoking Tobacco: FormerCigarettes Smokeless Tobacco: Never Tobacco Cessation:Counseling Given: Not Answered Alcohol UseStandard Drinks/WeekCommentsNot Currently0 (1 standard drink = 0.6 oz pure alcohol)CommentsUnknownSex and Gender InformationValueDate Recorded Sex Assigned at BirthNot on fileLegal WlfSfdlqj34/25/2022 7:19 PM ESTGender IdentityNot on fileSexual OrientationNot on file Last Filed Vital Signs Vital SignReadingTime TakenCommentsBlood Sksjotdb063/7411 9:43 AM EST Qmpnl381605/27/2024 9:43 AM ESTTemperature--Respiratory Rate--Oxygen Saturation-- Inhaled Oxygen Concentration--Ahmwmy38.7 kg (211 lb)05/27/2024 9:42 AM ESTHeight 175.3 cm (5' 9 )05/27/2024 9:42 AM ESTBody Mass Index31.16107/27/2023 9:42 AM EST Plan of Treatment Health MaintenanceDue DateLast DoneCommentsCT Dntmwmpihayk63/07/1957Colonoscopy 1956FIT1956Lipid Panel1956Medicare Annual Wellness Visit (AWV) 1955 9206Tgibjrpnroahb77/07/1957TSH Level1956MMR Vaccines (1 of 1 - Standard series)1957Diabetes Aiqckmxyy17/07/1975Hepatitis C Screening 1974DTaP/Tdap/Td Vaccines (1 - Tdap)1978Pneumococcal Vaccine (1 of 1 - PCV)2006Zoster Vaccines (1 of 2)2006Bone Density Scan2021 Cwkgywheh93/, 2COVID-19 Vaccine (4 - 2024- season) , 01/08/2021, 10/08/2020Influenza Vaccine (#1)2025 Colorectal Cancer Fhxrpzkyg54/30/2027FIT-DNA (Cologuard), 1RSV High Risk: (Elderly (60+) or Population) (1 - 1-dose 75+ series)09/24/2031HIB VaccinesAged OutNo longer eligible based on patient's age to complete this topicHPV VaccinesAged OutNo longer eligible based on patient's age to complete this topicHepatitis A VaccinesAged OutNo longer eligible based on patient's age to complete this topicHepatitis B VaccinesAged OutNo longer eligible based on patient's age to complete this topicIPV VaccinesAged OutNo longer eligible based on patient's age to complete this topicMeningococcal VaccineAged OutNo longer eligible based on patient's age to complete this topic Rotavirus VaccinesAged OutNo longer eligible based on patient's age to complete this topic Insurance Care Teams Team MemberRelationshipSpecialtyStart DateEnd Date Gerson Gonzalez DO [facility]12/21/09
--- OUTSIDE RECORDS SUMMARY | 2025-07-16 16:09 | XMS_ITS | Encounter Summary ---
Author Organization [facility] Address [address] [place] [address] Care Team Providers Care Law Secretary Name Role Phone Lisa Carson DO, Charles Lewis Primary Care Provi heladio Lisa Crason DO, Charles Lewis Unavailable [phone] Ghislaine Thakur RN Unavailable [phone] Nicholas Gracia MD Unavailable [phone] Dianne Keller APRN.TELEPHONE SEX WORKER Unavailable + Danielle Castellon Unavailable Unavailable Ramone Marcos RN Unavailable Unava ilable Source Comments In the event this information is protected by the Federal Confidentiality of Alcohol and Drug AbusePatient Records regulations: The Federal rules restrict any use of the information to criminally investigate or prosecute any alcohol or drug abuse patient.[facility] Encounter Details DateTypeDepartmentCare Team (Latest Contact Info)Ihshuixhhap69/17/2025Telephone Hematology/Oncology [address] [place] [address] [place] [address] Nicholas Gracia MD [address] [place] [address] Social History Tobacco UseTypesPacks/DayYears UsedDateSmoking Tobacco: FormerCigarettes1.518 07/20/1981 - 07/20/1999Smokeless Tobacco: NeverAlcohol UseStandard Drinks/Week CommentsNo0 (1 standard drink = 0.6 oz pure alcohol)PHQ-2AnswerDate RecordedPHQ- 2 /16/2025Area Deprivation IndexAnswerDate RecordedNational Score (1- 100), lower number is lower [id number] Score (1-10), lower number is lower [id number] from: https://www.neighborhoodatlas.[facility]/. Last address used for [address]CommentsNoSex and Gender Information ValueDate RecordedSex Assigned at BirthNot on fileLegal NhwObwnxw13/02/2012 9:48 AM ESTGender HmexezrnQvornq21/26/2022 11:07 AM EDTSexual OrientationNot on file OccupationIndustryJob Start DateJob End DatedisabledNot on fileNot on fileNot on filedocumented as of this encounter Functional Status * Are you deaf or do you have serious difficulty hearing?AnswerDate of ZtumitbotgWfqpdiPoc42/27/2015 12:58 PM Penny Wills MA * Are you blind or do you have serious difficulty seeing, even when wearing glasses?AnswerDate of ZldetvprzfDfcmjcQzt77/27/2015 12:58 PM Penny Wills MA * Do you have serious difficulty walking or climbing stairs?AnswerDate of HsjfutkdegRbewahSj04/27/2015 12:58 PM Penny Wills MA * Do you have difficulty dressing or bathing?AnswerDate of AssessmentAuthorNo 09/15/2014 12:58 PM Penny Wills MA * Because of a physical, mental, or emotional condition, do you have difficulty doing errands alone such as visiting a doctor's office or shopping?AnswerDate of PketembbacYlryiyFne57/27/2015 12:58 PM Penny Wills MA documented as of this encounter Mental Status * Because of a physical, mental, or emotional condition, do you have serious difficulty concentrating, remembering, or making decisions?AnswerEntry Date GogekxLz13/27/2015 12:58 PM Penny Wilsl MA documented in this encounter Miscellaneous Notes * Telephone Encounter - Vielka Oviedo - 07/05/2025 1:27 PM EST Scheduled 07/11/25. Vielka Oviedo * Telephone Encounter - Nicholas Gracia MD - 07/05/2025 9:19 AM EST D/c Docetaxel Ramucirumab. Please load single agent gemzar in [place] and schedule it next week. Thank you documented in this encounter Plan of Treatment DateTypeDepartmentCare Team (Latest Contact Info)Cfgvktgmrqo40/30/2025 2:15 PM ESTOffice Visit [facility] [address] [place] [address] follow up ycjthcepkdr38/30/2025 2:30 PM ESTVisit (SP) Office Hematology/Oncology [address] [facility] [place] [address] Vicki Soriano APRN.TELEPHONE SEX WORKER [address] [place] [place] [address] follow up xabtzvrblez64/30/2025 3:00 PM ESTInfusion Center Hematology/Oncology [address] [place] [address] follow up mmydwpjhmrf63/31/2025 1:00 PM [facility] Hematology/[place] [address] Luis M Silvestre, [address] [place] [address] VV FOLLOW UP07/25/2025 1:15 PM ESTOffice Visit [facility] [address] [place] [address] [place] [address] lab follow up and chemotx Jblknj8307/25/2025 1:40 PM ESTVisit (SP) Office Hematology/Oncology [address] [place] [address] [place] [address] Miguel Sheridan MD [address] [place] [address] [place] [address] lab follow up and chemotx Pziyuf6507/25/2025 2:30 PM [facility] Hematology/Oncology [address] [place] [address] [place] [address] lab follow up and chemotx Pziwam9308/29/2025 10:30 AM ESTOffice Visit Palliative Medicine [address] [place] [address] [place] [address] Dianne Keller, BOOKING AGENT.TELEPHONE SEX WORKER [address] [place] [address] 3 month follow up09/19/2025 1:40 PM ESTOffice Visit Endocrinology [address] [place], [place] [id number] Shawna Card MD, PhD [address] [place] [address] Return in about 6 months (around 09/14/2025).documented as of this encounter Visit Diagnoses Not on filedocumented in this encounter Care Teams Team MemberRelationshipSpecialtyStart DateEnd Date Gerson Gonzalez Jr., DO [address] [place] [id number] PCP - General08/24/01 Gerson Gonzalez Jr., DO [address] [place] [address] ReferringInternal Azptyjsn64/18/24 Ghislaine Thakur RN [address] [place] [address] [place] [address] Specialty Care CoordinatorHematology/Oncology08/31/24 Nicholas Gracia MD [address] [place] [address] [place] [address] PhysicianHematology/Oncology08/31/24 Dianne Keller APRN.TELEPHONE SEX WORKER [address] [place] [address] [place] [id number] Hospice & Palliative Medicine08/31/24 Danielle Castellon LSW Social Worker09/29/24 Ramone Marcos RN Specialty Care CoordinatorHospice & Palliative Gfekjsmv29/13/25documented as of this encounter
--- OUTSIDE RECORDS SUMMARY | 2025-07-16 16:10 | XMS_ITS | CCD ---
Author Organization [facility] CliniSymt Care Team Providers Care Embroiderer Hand Name Role Phone Asya Clements Primary Care Provider [phone] Self, Referral Attending Provider Unavailable Starr Carson, Asya Loja Primary Care Provider ASYA CLEMENTS JR Primary Care Physician Asya Clements Jr. Primary Care Provider Asya Clements Jr. Primary Care Provider DARRICK, DR ARMANDO Melo Consulting Unavailable VALONE, DR SKY Primary Care Unavailable KERA DIETZ Admitting Unavailable KERA DIETZ Attending Unavailable LUKonrad .KERA Consulting Unavailable VALONE, DR SKY Primary Care Unavailable VINCENT THAKUR Attending Unavailable VINCENT THAKUR Admitting Unavailable CASSANDRA, ALHAJI Reis Attending Unavailable ALHAJI TRUJILLO Admitting Unavailable VALONE, DR SKY Primary Care Unavailable DARRICK, DR ARMANDO Melo Consulting Unavailable ALHAJI TRUJILLO Consulting Unavailable VINCENT THAKUR Admitting Unavailable VALONE, DR SKY Primary Care Unavailable DARRICK, DR ARMANDO Melo Consulting Unavailable VINCENT THAKUR Attending Unavailable VINCENT THAKUR Consulting Unavailable VALONE, DR SKY Primary Care Unavailable VALONE, DR SKY Admitting Unavailable VALONE, DR SKY Attending Unavailable VALONE, DR SKY Consulting Unavailable WEST, DR ARMANDO Melo Consulting Unavailable CEDRIC .KERA Admitting Unavailable VALONE, DR SKY Primary Care Unavailable KERA DIETZ Attending Unavailable KERA DIETZ Consulting Unavailable JARAD BENAVIDES Consulting Unavailable JR Asya Clements Primary Care Provider CARLOS Wade Attending Provider JR Asya Clements Primary Care Provider CARLOS Wade Attending Provider Starr Carson DO, Charles Lewis Primary Care Provi heladio Asya Clements MD Primary Care Provider Asya Clements DO Primary Care Provider ЕЛЕНА GRIFFIN Attending Unavailable ASYA CLEMENTS Primary Care Unavailable Asya Clements JR Primary Care Provider [phone] Kera Reid MD Attending Provider Starr Carson DO, Charles Lewis Unavailable [phone] Yaya GONZALEZ, Darian Owens Attending Provider Blaze GAMING, Ghislaine Matt Unavailable Samia FLOYD, Isaac Unavailable Krishna PRINCE.SKYLAR, Vincent Saldaña Unavailable Jazmyne Bryson RN Unavailable Unavail able Asya Clements JR Primary Care Provider Kera Reid MD Attending Provider [phone] Sarabjit Crowley DO Attending Provider Asya Clements JR Primary Care Provider [phone] David Grant DO Emergency Provider Harmony Fairbanks MD, Horace Admit Provider [phone] Magdi FLOYD, Horace Attending Provider Michelle FLOYD, Agatha Patton Attending Provider Elizabeth Elizabeth MD Other Provider Mariah Patel MD Other Provider Miguel Taveras MD Other Provider Abimbola Nesbitt APRN Other Provider Jair Alvarez DO Other Provider Eyal Burt MD Other Provider Clovis Day MD Other Provider Taylor Smart MD Other Provider Dhruv FLOYD, Juan C Other Provider Bo KIM-CVicki Other Provider Danny Adames MD Other Provider Unavailable Courtney FLOYD, Rodolfo Melo Other Provider Ravinder BALL, Danielle Unavailable Unavailable Shasta Castellanos Unavailable Asya Clements JR Primary Care Provider Sarabjit Crowley DO Attending Provider David Grant DO Emergency Provider Harmony Fairbanks MD, Horace Admit Provider [phone] Michelle FLOYD, Agatha Patton Attending Provider [phone] Elizabeth Elizabeth MD Other Provider Jorge FLOYD, Mariah Other Provider Nitin FLOYD, Miguel Other Provider Abimbola Nesbitt APRN Other Provider Jair Alvarez DO Other Provider Carmel FLOYD, Eyal Reis Other Provider [phone] Clovis Day MD Other Provider Taylor Smart MD Other Provider [phone] Dhruv FLOYD, Juan C Other Provider Bo KIM-Vicki Hayes Other Provider [phone] Danny Adames MD Other Provider Unavailable Courtney FLOYD, Rodolfo Melo Other Provider [phone] Asya Clements JR Attending Provider SHASTA WADE Attending Unavailable SHASTA WADE Attending Unavailable SHASTA WADE Referring Unavailable SHASTA WADE Attending Unavailable DOUG BEYER Attending Unavailable MICHAEL CRUZ Attending Unavailable SHASTA WADE Attending Unavailable SHASTA WADE Attending Unavailable Asya Clements JR Primary Care Provider Samia FLOYD, Isaac Attending Provider Ghislaine Cannon Attending Provider Unavailable Qamar PRINCE-SPUDDER-CAyesha Attending Provider Starr Asya Roman Primary Care Unavailable Isaac Gracia Admitting Unavailable VennepuredIsaac arriola Attending Unavailable Valone, Asya L Attending Unavailable Valone, Aysa L Admitting Unavailable Valone, Asya L Primary Care Unavailable Delasos, Sarabjit Admitting Unavailable Delasos, Sarabjit Attending Unavailable Valone, Asya L Primary Care Unavailable Valone, Asya L Primary Care Unavailable Mareth, Darian L Admitting Unavailable Mareth, Darian L Attending Unavailable Valone, Asya L Primary Care Unavailable Lue, Kera M Admitting Unavailable Lue, Kera M Attending Unavailable Valone, Asya L Primary Care Unavailable Mareth, Darian L Admitting Unavailable Mareth, Darian L Attending Unavailable Elizabeth Elizabeth Consulting Unavailable Horace Fairbanks Admitting Unavailable Agatha Martinez Attending Unavailable Valone, Asya L Primary Care Unavailable Mariah Patel Consulting Unavailable Miguel Taveras Consulting Unavailable Abimbola Nesbitt Consulting Unavailable Jair Alvarez Jr Consulting UnavailEyal Alcala Consulting UnavailClovis Rao Unavailable Taylor Smart Consulting Unavailable Juan C Schreiber Consulting Unavailable Vicki Soriano Consulting Unavailable Danny Adames Consulting Unavailable Rodolfo Valdez V Consulting Unavailable Valone, Asya L Primary Care Unavailable Lue, Kera M Admitting Unavailable Lue, Kera M Attending Unavailable Lue, Kera M. Attending Unavailable Lue, Kera M. Attending Unavailable Lue, Kera M. Attending Unavailable Lue, Kera M. Attending Unavailable Lue, Kera MCari Attending Unavailable Lue, Kera MCari Attending Unavailable Lue, Kera MCari Attending Unavailable Lue, Kera MCari Attending Unavailable ANN FORTE Attending Unavailable ANN FORTE Attending Unavailable Lue, Kera MCari Attending Unavailable Yaquelin Gracia MDh Unavailable [phone] ASYA CLEMENTS JR Primary Care Unavail able DELASOS, SARABJIT Referring Unavailable ASYA CLEMENTS JR Primary Care Unavail able ALEJANDROUREDDY, ISAAC Referring Unavailable JEANNAONE , ASYA LOJA Primary Care Unavail able VENNEPUREDDY, ISAAC Referring Unavailable JEANNAONE , ASYA JIMMY Primary Care Unavail able VENNEPUREDDY, ISAAC Referring Unavailable VENNEPUREDDY, ISAAC Attending Unavailable JEANNAONE , ASYA JIMMY Primary Care Unavail able VENNEPUREDDY, ISAAC Referring Unavailable VENNEPUREDDY, ISAAC Attending Unavailable JEANNAONE , ASYA JIMMY Primary Care Unavail able Shaka SMART Referring Unavailable Shaka SMART Attending Unavailable JEANNAONE , ASYA LOJA Primary Care Unavail able JEANNAONE , ASYA JIMMY Primary Care Unavail able DELASOS, SARABJIT Referring Unavailable ANN-MARIE GOMEZ Attending Unavailable JEANNAONE , ASYA JIMMY Primary Care Unavail able DELASOS, SARABJIT Referring Unavailable JEANNAONE , ASYA LOJA Primary Care Unavail able VINCENT ESTRADA Attending Unavaillisa e JEANNAONE JR, ASYA JIMMY Primary Care Unavail able JUSTINAOS, SARABJIT Referring Unavailable VINCENT ESTRADA Attending Unavailabl konrad TRANONE , ASYA LOJA Primary Care Unavail able DHRUV, JUAN C Referring Unavailable JUAN C SCHREIBER Attending Unavailable JEANNAONE , ASYA LOJA Primary Care Unavail able DHRUV, JUAN C Referring Unavailable JEANNAONE , ASYA JIMMY Primary Care Unavail able JUAN C SCHREIBER Attending Unavailable JEANNAONE , ASYA LOJA Primary Care Unavail able JEANNAONE , ASYA JIMMY Primary Care Unavail able DELASOS, SARABJIT Referring Unavailable VENNEPUREDDY, ISAAC Attending Unavailable JEANNAONE , ASYA LOJA Primary Care Unavail able JEANNAONE , ASYA JIMMY Primary Care Unavail able VENNEPUREDDY, ISAAC Attending Unavailable JEANNAONE , ASYA JIMMY Primary Care Unavail able JUSTINAOS, SARABJIT Referring Unavailable VINCENT ESTRADA Attending Unavailabl e JEANNAONE JR, ASYA LOJA Primary Care Unavail able SHAWNA FLORES Attending Unavailable Shaka SMART Referring Unavailable JEANNAONE , ASYA JIMMY Primary Care Unavail able JEANNAONE , ASYA JIMMY Primary Care Unavail able JEANNAONE , ASYA JIMMY Primary Care Unavail able SELF Referring Unavailable JEANNAONE , ASYA JIMMY Primary Care Unavail able VENNEPUREDDY, ISAAC Referring Unavailable JEANNAONE , ASYA JIMMY Primary Care Unavail able VENNEPUREDDY, ISAAC Referring Unavailable JEANNAONE , ASYA JIMMY Primary Care Unavail able VENNEPUREDDY, ISAAC Referring Unavailable ZEHRA GRIFFIN Attending Unavailable STARR , ASYA LOJA Primary Care Unavail able STARR MUNROE, ASYA LOJA Primary Care Unavail able ERIC CROWLEYS Referring Unavailable STARR MUNROE, ASYA LOJA Primary Care Unavail able STARR MUNROE, ASYA JIMMY Primary Care Unavail able STARR MUNROE, ASYA JIMMY Primary Care Unavail able STARR MUNROE, ASYA LOJA Primary Care Unavail able Shaka SMART Attending Unavailable JEANNAONE , ASYA LOJA Primary Care Unavail able JEANNAONE , ASYA JIMMY Primary Care Unavail able STARR MUNROE, ASYA JIMMY Primary Care Unavail able VENNEPUREDDY, ISAAC Referring Unavailable VENNEPUREDDY, ISAAC Attending Unavailable JEANNAONE , ASYA LOJA Primary Care Unavail able VENNEPUREDDY, ISAAC Referring Unavailable JEANNAONE , ASYA LOJA Primary Care Unavail able VINCENT ESTRADA Referring Unavailabl e JEANNAONE , ASYA LOJA Primary Care Unavail able STARR MUNROE, ASYA LOJA Primary Care Unavail able YASMEEN NARAYAN Referring Unavailable VINCENT ESTRADA Attending Unavaillisa e JEANNAONE , ASYA LOJA Primary Care Unavail able NIKOLAY CROWLEYKAS Referring Unavailable VENNEPUREDDY, ISAAC Attending Unavailable STARR MUNROE, ASYA LOJA Primary Care Unavail able STARR MUNROE, ASYA LOJA Primary Care Unavail able STARR MUNROE, ASYA JIMMY Primary Care Unavail able JEANNAONE , ASYA JIMMY Primary Care Unavail able JUAN C SCHREIBER Attending Unavailable JEANNAONE , ASYA LOJA Primary Care Unavail able JUAN C SCHREIBER Referring Unavailable JEANNAONE , ASYA LOJA Primary Care Unavail able STARR MUNROE, ASYA LOJA Primary Care Unavail able NIKOLAY CROWLEYKAS Referring Unavailable VENNEPUREDDY, ISAAC Attending Unavailable JEANNAONE , ASYA LOJA Primary Care Unavail able JUAN C SCHREIBER Referring Unavailable JUAN C SCHREIBER Attending Unavailable STARR MUNROE, ASYA LOJA Primary Care Unavail able STARR MUNROE, ASYA LOJA Primary Care Unavail able STARR MUNROE, ASYA JIMMY Primary Care Unavail able JEANNAONE , ASYA JIMMY Primary Care Unavail able ANN-MARIE GOMEZ Referring Unavailable ANN-MARIE GOMEZ Attending Unavailable STARR MUNROE, ASYA LOJA Primary Care Unavail able VINCENT ESTRADA Referring UnavailVINCENT Roach Attending Unavaillisa TRANONE , ASYA LOJA Primary Care Unavail able VENNEPUREDFLAKO, ISAAC Referring Unavailable ANN-MARIE GOMEZ Attending Unavailable JEANNAONE , ASYA LOJA Primary Care Unavail able VENNEPUREDDY, ISAAC Referring Unavailable [facility] Primary Care [facility]avail [facility] Shaka SMART Referring Unavailable Shaka SMART Attending Unavailable [facility] Primary Care Unavail able Shaka SMART Referring Unavailable Shaka SMART [facility]ending [facility] Unavail able YAYA DARIAN L Referring Unavailable [facility] Care Unavail able HANH BARCLAYI Roman Attending Unavailable VALONE [facility] Care Unavail able YAYA DARIAN L Referring Unavailable YASMEEN NARAYAN Attending Unavailable [facility] Care Unavail able YAYA DARIAN L Referring Unavailable SARABJIT SHARMA Attending [facility]available [facility] Unavail able YAYA DARIAN L Referring Unavailable SARABJIT CROWLEY Attending Unavailable [facility] Unavail able DELASOS, SARABJIT Referring Unavailable VENNSHIRAUREDFLAKO, ISAAC Attending Unavailable VALONE [facility] Care Unavail able Shaka SMART Referring Unavailable Shaka SMART Attending [facility]available [facility] Unavail able Shaka SMART Attending Unavailable [facility] Care Unavail able ANN-MARIE GOMEZ Referring Unavailable [facility] Care Unavail able JUAN C SCHREIBER Attending Unavailable [facility] Care Unavail able PAULINA JACOBSON Referring Unavail able [facility] Care Unavail able PAULINA JACOBSON Attending Unavail able [facility] Unav[facility] able HANH BARCLAYI Roman Attending Unavailable [facility] Unavail able YAYA DARIAN L Referring Unavailable [facility] Unavail able [facility] Care Unavail able DELKEYONNAOS, SARABJIT Referring Unavailable VENNEPUREDFLAKO, ISAAC Attending Unavailable [facility] Unavail able DELASOS, SARABJIT Referring Unavailable [facility] Unavail able VENNEPUREDFLAKO, ISAAC [facility] Un[facility] Unavail able DELASOS, SARABJIT Referring Unavailable VENNEPUREDFLAKO, ISAAC Attending Unavailable VALONE , ASYA JIMMY Primary Care Unavail able DELASOS, SARABJIT Referring Unavailable VALONE , ASYA JIMMY Primary Care Unavail able VALONE , ASYA JIMMY Primary Care Unavail able Shaka SMART Attending Unavailable VALONE JR, ASYA JIMMY Primary Care Unavail able VENNEPUREDDY, ISAAC Referring Unavailable ULISSES BAUM Attending Unavailable VALONE JR, ASYA JIMMY Primary Care Unavail able VENNEPUREDDY, ISAAC Referring Unavailable VALONE , ASYA JIMMY Primary Care Unavail able VALONE JR, ASYA JIMMY Primary Care Unavail able ULISSES BAUM Attending Unavailable VALONE , ASYA JIMMY Primary Care Unavail able VALONE JR, ASYA JIMMY Primary Care Unavail able MAYI ARAIZA Attending Unavailable MAYI ARAIZA Admitting Unavailable VALONE JR, ASYA JIMMY Primary Care Unavail able DELASOS, SARABJIT Referring Unavailable VALONE , ASYA JIMMY Primary Care Unavail able VENNEPUREDDY, ISAAC Referring Unavailable VALONE , ASYA JIMMY Primary Care Unavail able SELF Referring Unavailable VALONE , ASYA JIMMY Primary Care Unavail able ELIZABETH BALBUENA Referring Unavailable ELIZABETH BALBUENA Attending Unavailable VALONE , ASYA JIMMY Primary Care Unavail able VALONE JR, ASYA JIMMY Primary Care Unavail able KEO, SARABJIT Referring Unavailable ULISSES BAUM Attending Unavailable Allergies Allergy ClassificationReported Allergen(s)Allergy TypeDate of OnsetReaction(s) Facility (20 sources)Seasonal allergy; Translations: [SEASONAL ALLERGIES]Propensity to adverse htkfynzgs19-70-5326HtnooloXhlgmxgva [facility] (8 sources)OtherPropensity to adverse jfopudvww80-38-7471PmxtwxbGSFO Healthcare Work Phone: Medications Current Medications MedicationDrug Class(es)DatesSig (Normalized)Sig (Original)acetaminophen 325 mg oral tablet (20 sources)Start: 90-50-9250npeu 2 tablets by mouth every six hours as needed for painAcetaminophen (Tylenol) 325 mg Tablet Active 650 MG PO Q6H as needed for fever/pain September 12, 2024 1:00am Complies with drug therapyStart: 06-07-2024 End: 04-39-6338cfsxxiuqlaiqa (TYLENOL) 325 mg tablet Take 325 mg by mouth as needed for pain. 06/07/2024 ActiveAscorbic Acid (20 sources)Vitamin CASCORBIC ACID (VITAMIN C ORAL) Take by mouth once daily. ActiveASCORBIC ACID (VITAMIN C ORAL) Take by mouth. ActiveASCORBIC ACID (VITAMIN C ORAL) Take by mouth. 0 ActiveComment on above:Take by mouth.ascorbic acid (Vitamin C) 500 mg/mL oral liquid (8 sources)ascorbic acid (Vitamin C) 500 mg/mL oral liquid Take by mouth Daily Activebenzonatate (20 sources)Non-narcotic Antitussivebenzonatate (TESSALON PERLES ORAL) Take by mouth as needed. Activebenzonatate (TESSALON PERLES ORAL) Take by mouth. Active carvedilol 3.125 mg oral tablet (20 sources)alpha-Adrenergic Vamshi, beta-Adrenergic BlockerStart: 12-24-2024 take 1 tablet by mouth twice daily at mealtimecarvedilol (COREG) 3.125 mg tablet Take 3.125 mg by mouth two times a day with meals. 12/24/2024 Active cholecalciferol 0.05 mg oral capsule (20 sources)Vitamin DStart: 50-08-3490IIKLXPMIDBVIZRM (VITAMIN D3) 2,000 UNIT CAP Take one(1) tablet daily. 0 06/01/2008 Activetake 1 tablet by mouth in the morningcholecalciferol (Vitamin D-3) 25 MCG (1000 UT) tablet Take 1,000 Units by mouth in the morning. ActiveComment on above:Take one(1) tablet daily.clonazePAM 0.5 mg oral tablet (3 sources)BenzodiazepineStart: 80-01-0417QsycppeHFK 0.5 mg Tab Refills(s) 0 Start Date: 07/23/22 Status: Ordered End: 19-57-2262lqspwjhHBQ (KLONOPIN) 0.5 mg tablet three times daily as needed. 0 11/12/2021 Discontinued (Course of therapy completed)Comment on above:three times daily as needed. docusate sodium 50 mg / sennosides, assisted 8.6 mg oral tablet (20 sources)Start: 08-26-2024 End: 87-72-4868aeng 1 tablet by mouth once dailysenna-docusate (SENNA-S) 8.6-50 mg per tablet Take 1 tablet by mouth once daily. 90 tablet 2 08/26/2024 11/24/2024 Activeempagliflozin 10 mg oral tablet (20 sources)Sodium-Glucose Cotransporter 2 Inhibitortake 1 tablet by mouth once daily at breakfastempagliflozin (JARDIANCE) 10 mg tablet Take 10 mg by mouth daily with breakfast. Activeenteric contrast (will be provided with radiology test) (2 sources)Start: 07-29-2024 End: 74-23-6289dcmehhq contrast (will be provided with radiology test) Indications: Lytic bone lesions on xray , Thyroid nodule , Thyroid nodule greater than or equal to 1 cm in diameter incidentally noted on imaging study For CT CHESTABD/PEL W IVCON Routine order Administer, As Directed One Time Only, via Oral, Rectal, both Oral and Rectal, Enteric Tube, Stoma or Indwelling Catheter, Enteric Contrast as designated per enteric contrast guidelines 1 Each 07/29/2024 07/30/2024 Activeezetimibe 10 mg oral tablet (20 sources)Dietary Cholesterol Absorption InhibitorStart: 93-35-9610qcxr 5 mg by mouth once daily in the morningEzetimibe (Zetia) 10 mg tablet Active 5 MG PO Every morning May 31, 2024 1:00am Complies with drug therapyStart: 66-59-2708oibf 1 tablet by mouth once dailyezetimibe (ZETIA) 10 mg tablet Take 10 mg by mouth once daily. 10/03/2021 ActiveStart: 96-48-6706xxuo 1 mg by mouth once dailyezetimibe mg, Oral, Daily Start Date: 07/24/21 Status: OrderedComment on above:Take 10 mg by mouth once daily.FLUoxetine 40 mg oral capsule (20 sources)Serotonin Reuptake InhibitorStart: 31-69-8330Aymuorfqcu 40 mg capsule Active 40 MG PO February 06, 2025 12:00am Complies with drug therapyStart: 57-67-5508wpya 1 capsule by mouth once daily in the morningFluoxetine 20 mg capsule Active 20 MG PO Every morning May 31, 2024 1:00am Complies with drug therapyStart: 24-18-3980UTMfbbivex 10 mg Cap Refills(s) 0 Start Date: 01/15/22 Status: Orderedtake 2 capsules by mouth once dailyFLUoxetine (PROZAC) 20 mg capsule Take 40 mg by mouth once daily. ActiveComment on above:Take 10 mg by mouth once daily.gabapentin 100 mg oral capsule (20 sources)Anti-epileptic AgentStart: 23-84-6217syth 1 capsule by mouth twice dailyGabapentin 100 mg capsule Active 100 MG PO Twice daily 180 February 06, 2025 12:00am Complies with drug therapyStart: 48-55-3614obpa 300 mg by mouth twice dailygabapentin 300 mg Tb24 Take 300 mg by mouth two times a day. 10/10/2024 ActiveStart: 47-97-9837dhzz 1 capsule by mouth at bedtimegabapentin (NEURONTIN) 100 mg capsule TAKE 1 CAPSULE (100 MG) BY MOUTH IN THE MORNING AND BEFORE BED TIME 10/10/2024 ActiveStart: 08-31-2024 End: 60-64-0200cowg 1 capsule by mouth three times dailygabapentin (NEURONTIN) 300 mg capsule Take 1 capsule by mouth three times a day for 30 days. 60 capsule 08/31/2024 09/04/2024 DiscontinuedStart: 04-84-6217tbmw 1 capsule by mouth twice dailygabapentin 300 mg Cap 300 mg = 1 cap(s), Oral, BID Start Date: 07/24/21 Status: OrderedStart: 06-26-2014 End: 74-22-6922iigriizrra (NEURONTIN) 300 mg capsule Take 1 pill three times a day 270 capsule 3 06/26/2014 04/10/2023 Discontinued (Course of therapy completed) End: 96-97-3680xxsu 1 capsule by mouth once daily at bedtimegabapentin (NEURONTIN) 300 mg capsule Take 300 mg by mouth daily at bedtime. 08/31/2024 Discontinued (Adjust Sig - Block E-Cancel)Comment on above:Take 1 pill three times a dayhydroCHLOROthiazide 25 mg oral tablet (20 sources)Thiazide DiureticStart: 06-23-2024 End: 79-07-7283Tcwfwdmyzqcbmiylsqx 25 mg tablet Active 25 MG PO .PRN September 07, 2024 1:00am Complies with drugtherapylevothyroxine sodium 0.075 mg oral tablet (20 sources)l-ThyroxineStart: 58-46-8028vgav 1 tablet by mouth once daily levothyroxine (SYNTHROID) 75 mcg tablet Indications: Acquired hypothyroidism Take 1 tablet by mouthonce daily. 90 tablet 1 03/14/2025 ActiveStart: 06-24-2023 levothyroxine 25 mcg (0.025 mg) Tab Refills(s) 0 Start Date: 06/24/23 Status: OrderedStart: 03-27-2023 End: 24-15-0015gbif 1 tablet by mouth once dailylevothyroxine (SYNTHROID) 25 mcg tablet Take 25 mcg by mouth once daily. 03/27/2023 03/14/2025 Discontinued loratadine 10 mg oral tablet (1 source)Start: 36-79-7257Ijoosjkdat 10 mg tablet Active 10 MG PO February 06, 2025 12:00am Complies with drug therapyLORazepam 1 mg oral tablet (1 source)BenzodiazepineStart: 09-30-2024 End: 66-95-9281ucwx 1 tablet by mouth every twelve hours as needed for anxiety LORazepam (ATIVAN) 1 mg tablet Indications: Panic disorder Take 1 tablet by mouth every 12 hours asneeded for anxiety (sever panic) for up to 7 days. 14 tablet 09/30/2024 10/07/2024 ActiveMAGNESIUM BISGLYCINATE PO (8 sources)MAGNESIUM BISGLYCINATE PO Take 300 mg by mouth ActiveMagnesium Oxide- Mg Amino Acid Chelate 300 mg cap (20 sources)take 1 capsule by mouth once daily at bedtimeMagnesium Oxide-Mg Amino Acid Chelate 300 mg cap Take 300 mg by mouth daily at bedtime. Activetake 1 capsule by mouth once daily at bedtimeMagnesium Oxide-Mg Amino Acid Chelate 300 mg cap Take 300 mg by mouth daily at bedtime. 0 ActiveComment on above:Take 300 mg by mouth daily at bedtime.meloxicam 15 mg oral tablet (20 sources)Nonsteroidal Anti-inflammatory DrugStart: 08-31-2024 End: 18-34-6272nrdh 2 tablets by mouth once dailymeloxicam (MOBIC) 7.5 mg tablet Take 2 tablets by mouth once daily. 08/31/2024 09/30/2024 ExpiredStart: 05-31-2024 End: 23-99-4907ctyh 1 tablet by mouth twice daily as needed for painMeloxicam 15 mg tablet Active 15 MG PO Twice daily as needed for pain September 12, 2024 11:52amComplies with drug therapyStart: 29-29-7599ccqy 1 tablet by mouth once daily in the morningMeloxicam 15 mg tablet Active 15 MG PO Every morning May 31, 2024 12:00amStart: 90-10-2638ucmy 1 tablet by mouth in the morningmeloxicam (Mobic) 15 mg tablet Take 1 tablet (15 mg) by mouth early in the morning.. 05/20/2024 Active End: 81-33-0803lfoy 1 tablet by mouth once dailymeloxicam (MOBIC) 7.5 mg tablet Take 7.5 mg by mouth once daily. 08/31/2024 Discontinued (Adjust Sig - Block E-Cancel)modafinil 200 mg oral tablet (8 sources)Sympathomimetic-like AgentStart: 98-38-2157zccibixez (Provigil) 200 MG tablet 01/01/2023 ActiveMultiple Vitamins-Minerals (PRESERVISION AREDS 2 PO) (8 sources)Multiple Vitamins-Minerals (PRESERVISION AREDS 2 PO) Take by mouth Activeondansetron 8 mg oral tablet (20 sources)Serotonin-3 Receptor AntagonistStart: 08-30-2024 End: 57-07-4798qgum 1 tablet by mouth every eight hours as needed for nausea and nauseaondansetron (ZOFRAN) 8 mg tablet Indications: Chemotherapy-induced nausea Take 1 tablet by mouth every 8 hours as needed for nausea/vomiting. 90 tablet 3 02/28/2025 03/30/2025 Activeoxybutynin chloride 5 mg oral tablet (9 sources)Cholinergic Muscarinic AntagonistStart: 69-42-3766Ienraigiie Chloride 5 mg tablet Active 5 MG PO 2-3 TIMES PER DAY as needed for bladder spasms May 1:00am Complies with drug therapyoxyCODONE hydrochloride 5 mg oral tablet (20 sources)Opioid AgonistStart: 2024 End: 75-16-7833tyvw 1 tablet by mouth every six hours as neededoxyCODONE IR (ROXICODONE) 5 mg immediate release tablet Indications: Metastatic cancer to bone (HCC) , Neoplasm related pain Take 1-2 tablets by mouth every 6 hours as needed for pain for up to 15 days. 120 tablet 02/28/2025 ActiveStart: 08-31-2024 End: 07-50-0562xyco 1 tablet by mouth every four hours as neededoxyCODONE IR (ROXICODONE) 10 mg tab Indications: Metastatic cancer to bone (HCC) , Lung mass Take 1-2 tablets by mouth every 4 hours as needed for pain for up to 30 days. for pain. 360 tablet 08/31/2024 09/04/2024 Discontinued (Discontinued by Patient)Start: 08-26-2024 End: 25-45-9873tymx 1 tablet by mouth every six hours as needed for pain oxyCODONE IR (ROXICODONE) 10 mg tab Indications: Metastatic cancer to bone (HCC) , Lung mass Take 1tablet by mouth every 6 hours as needed for pain for up to 30 days. for pain. 120 tablet Discontinued (Adjust Sig - Block E-Cancel)Start: 08-19-2024 End: 32-46-3359wgpe 1 tablet by mouth every six hours as neededoxyCODONE IR (ROXICODONE) 5 mg immediate release tablet Indications: Metastatic cancer to bone (HCC) , Lung mass , Lytic bone lesions on xray Take 1-2 tablets by mouth every 6 hours as needed for pain for up to 7 days. for pain. 40 tablet 08/19/2024 08/26/2024 Discontinuedprochlorperazine 10 mg oral tablet (20 sources)PhenothiazineStart: 09-26-9296wqqr 1 tablet by mouth every six hours as neededprochlorperazine (COMPAZINE) 10 mg tablet Take 1 tablet by mouth every 6 hours as needed. 100 tablet 2 08/30/2024 Activepropranolol hydrochloride 60 mg oral tablet (20 sources)beta-Adrenergic BlockerStart: 07-24-2021 End: 20-73-7928numzqtrhigu (INDERAL) 60 mg tablet Propranolol 60 mg tablet Active 60 MG PO Daily at bedtime as needed for tremor(s), anxiety May 31, 2024 1:00am Complies with drug therapy 07/24/2021 ActiveStart: 07-24-2021 End: 60-30-1951kbzftgwfumw (INDERAL) 20 mg tablet as needed. 11/06/2021 11/23/2024 DiscontinuedComment on above:as needed.silver sulfADIAZINE 10 mg/ml topical cream (5 sources)Sulfonamide AntibacterialStart: 09-22-2024 End: 57-22-8448rflwdh sulfADIAZINE (SILVADENE) 1 % cream Apply to affected area once daily for 14 days. 25 g 09/22/2024 10/06/2024 ActiveSotorasib (1 source)Start: 12-62-8934Hpwqjqout (Lumakras) 240 mg tablet Active 240 MG PO February 06, 2025 12:00am Complies with drug therapysotorasib (LUMAKRAS) 320 mg tablet (13 sources)Start: 03-15-2025 End: 07-34-6929fgja 3 tablets by mouth once dailysotorasib (LUMAKRAS) 320 mg tablet Take 3 tablets by mouth once daily. 90 tablet 1 03/15/2025 10:20AM EDT 03/15/2025 04/14/2025 ActiveStart: 02-03-2025 End: 37-80-8861zedq 3 tablets by mouth once daily in the eveningsotorasib (LUMAKRAS) 320 mg tablet Take 3 tablets by mouth once daily. 90 tablet 02/09/2025 4:17 PMEDT 02/03/2025 03/15/2025 DiscontinuedStart: 02-03-2025 End: 19-24-4218dvuv 3 tablets by mouth once daily in the eveningsotorasib (LUMAKRAS) 320 mg tablet Take 3 tablets by mouth once daily. 90 tablet 02/09/2025 4:17 PMEDT 02/03/2025 03/11/2025 Activetamsulosin hydrochloride 0.4 mg oral capsule (6 sources)alpha-Adrenergic BlockerStart: 98-84-7023myjp 1 capsule by mouth once dailytamsulosin 0.4 mg Cap 0.4 mg = 1 cap(s), Oral, Daily, # 30 cap(s), Refills(s) 0, Pharmacy: [facility]/pharmacy #[id number], 175, cm, 03/17/24 12:54:00 EDT, Height/Length Dosing, 95, kg, 03/17/24 12:54:00 EDT, Weight Dosing Start Date: 03/17/24 Status: Orderedtorsemide 20 mg oral tablet (20 sources)Loop DiureticStart: 81-77-8009qlubonevi (DEMADEX) 20 mg tablet once daily as needed. 10/26/2024 ActivetraMADol hydrochloride 50 mg oral tablet (20 sources)Opioid AgonistStart: 09-07-2024 End: 08-87-4169Bgcpnmuq 50 mg tablet Active 50 MG PO .PRN as needed for pain September 07, 2024 1:00am Complies with drug therapyStart: 09-04-2024 End: 91-00-3906jlkj 1.5 tablets by mouth every four hours for paintraMADol (ULTRAM) 50 mg tablet Indications: Lytic bone lesions on xray Take 1.5 tablets by mouth every 4 hours for 7 days. for pain. 63 tablet 09/04/2024 2024 DiscontinuedStart: 08-11-2024 End: 69-58-0461okbk 1 tablet by mouth every six hours as needed for paintraMADol (ULTRAM) 50 mg tablet Indications: Lytic bone lesions on xray Take 1 tablet by mouth every6 hours as needed for pain for up to 7 days. for pain. 28 tablet 08/11/2024 08/18/2024 ActiveStart: 07-29-2024 End: 39-73-6198zuic 1 tablet by mouth every six hours as needed for paintraMADol (ULTRAM) 50 mg tablet Indications: Lytic bone lesions on xray Take 1 tablet by mouth every6 hours as needed for pain for up to 7 days. for pain. 28 tablet 07/29/2024 08/05/2024 ActiveVitamin B Complex (20 sources)Start: 64-35-2308uzsd 1 tablet by mouth once dailyvitamin b complex tab Take 1 tablet by mouth once daily. 08/03/2018 ActiveStart: 68-80-0053xqmd 1 tablet by mouth once dailyvitamin b complex tab Take 1 tablet by mouth once daily. 0 08/03/2018 ActiveComment on above:Take 1 tablet by mouth once daily. Completed/Discontinued Medications MedicationDrug Class(es)DatesSig (Normalized)Sig (Original)acetylcysteine in water/PF (ACETYLCYSTEINE, PF, IN WATER) 10 % drop (1 source)Start: 08-16-2019 End: 86-00-8439vlts 1 drop(s) into the eye(s) three times dailyacetylcysteine in water/PF (ACETYLCYSTEINE, PF, IN WATER) 10 % drop Use 1 Drop in the right eye three times daily. 10 mL 11 08/16/2019 11/12/2021 DiscontinuedComment on above: Use 1 Drop in the right eye three times daily.[id number] 200 actuat albuterol 0.09 mg/actuat metered dose inhaler (20 sources)beta2-Adrenergic AgonistStart: 2024 End: 21-91-4734aqhy 2 puff(s) by inhalation every six hours as needed for wheezingalbuterol HFA (PROVENTIL HFA, VENTOLIN HFA) 90 mcg/actuation inhaler Indications: Chronic obstructive pulmonary disease, unspecified COPD type (HCC) , SOB (shortness of breath) Inhale 2 Puffs as instructed every 6 hours as needed for wheezing/shortness of breath. 1 Each 3 2024 01/26/2025 Discontinued (Discontinued by Patient)onabotulinumtoxina 50 unt injection (8 sources)Acetylcholine Release InhibitorStart: 01-25-2025 End: 18-27-4598vyemvg 1 dose by intramuscular injection every 30 days16 Units, INTRAMUSCULAR, ONCE (UP TO 30 DAYS AMB), 1 dose, On Thu01/25/25 at 0000, This record documents the total dose provided to patient. See progress note for specific locations and amounts administered. REFRIGERATE - Pharmaceutical Waste: Lab Pack -Start: 01-25-2025 End: 77-07-0775ixmbdwngjuix toxin type A 16 Units injection (BOTOX)Start: 01-25-2025 End: 86-60-3202lbohraxcafxe toxin type A 16 Units injection (BOTOX)Start: 04-22-2024 End: 68-48-7287zngpjt 1 dose by intramuscular injection every 30 days81 Units, INTRAMUSCULAR, ONCE (UP TO 30 DAYS AMB), 1 dose, On Thu04/22/24 at 1130, This record documents the total dose provided to patient. See progress note for specific locations and amounts administered. REFRIGERATE - Pharmaceutical Waste: Lab Pack -Start: 04-22-2024 End: 14-35-7484vvyexsnuyyye toxin type A 81 Units injection (BOTOX)Start: 04-10-2023 End: 72-69-4450ihrmhfxzntle toxin type A 90 Units injection (BOTOX)Start: 06-01-2022 End: 09-28-7587bhctwdnebtpm toxin type A 100 Units injection (BOTOX)Start: 01-19-2022 End: 30-66-2312kdzlzmscrqja toxin type A 94 Units injection (BOTOX)24 hr buPROPion hydrochloride 300 mg extended release oral tablet (1 source)AminoketoneStart: 08-30-2022 End: 07-50-4509bovr 1 tablet by mouth once daily in the morningbuPROPion XL (WELLBUTRIN XL) 300 mg 24 hr tablet Take 300 mg by mouth every morning. 0 08/30/2022 04/10/2023 Discontinued (Course of therapy completed)Comment on above:Take 300 mg by mouth every morning.CARBOplatin 500 mg in NaCl 0.9% 325 mL (PARAPLATIN) (3 sources)Start: 12-14-2024 End: 96-14-6155452 mg (rounded from 517.2 mg, Target AUC = 4), INTRAVENOUS, Administer over 30 Minutes, ONCE, 1 dose, On Thu12/14/24 at 1530, EXP: 12/15/2024 1110 RT Hazardous Chemotherapy Drug: Use appropriate PPE. Antineoplastic Irritant.Start: 11-23-2024 End: 57-08-7879306 mg (rounded from 517.2 mg, Target AUC = 4), INTRAVENOUS, Administer over 30 Minutes, ONCE, 1 dose, On Thu11/23/24 at 1500, EXP: 1100 11/24/24 Hazardous Chemotherapy Drug: Use appropriate PPE. Antineoplastic Irritant.Start: 11-02-2024 End: 73-16-7365292 mg (rounded from 517.2 mg, Target AUC = 4), INTRAVENOUS, Administer over 30 Minutes, ONCE, 1 dose, On Thu11/02/24 at 1330, EXP: 11/03/2024 0945 RT Hazardous Chemotherapy Drug: Use appropriate PPE. Antineoplastic Irritant.CARBOplatin 694 mg in NaCl 0.9% 344.4 mL (PARAPLATIN) (2 sources)Start: 10-12-2024 End: 04-74-4377979 mg (Target AUC = 5), INTRAVENOUS, Administer over 30 Minutes, ONCE, 1 dose, On 10/12/24 at 1400, EXP: 10/13/2024 1030 RT Hazardous Chemotherapy Drug: Use appropriate PPE. Antineoplastic Irritant.Start: 09-14-2024 End: mg (Target AUC = 5), INTRAVENOUS, Administer over 30 Minutes, ONCE, 1 dose, On Thu09/14/24 at 1400, EXP: 09/15/2024 1000 RT Hazardous Chemotherapy Drug: Use appropriate PPE. Antineoplastic Irritant.1 ml dexamethasone phosphate 10 mg/ml injection (5 sources)CorticosteroidStart: 12-14-2024 End: mg, INTRAVENOUS, ONCE, 1 dose, On Thu12/14/24 at 1100, Administer over 5 minutes.Start: 11-23-2024 End: 26-79-190466 mg, INTRAVENOUS, ONCE, 1 dose, On Thu11/23/24 at 1100, Administer over 5 minutes.Start: 11-02-2024 End: 09-46-179891 mg, INTRAVENOUS, ONCE, 1 dose, On Thu11/02/24 at 0930, Administer over 5 minutes.Start: 10-12-2024 End: 97-15-370510 mg, INTRAVENOUS, ONCE, 1 dose, On Thu10/12/24 at 1000, Administer over 5 minutes.Start: 09-14-2024 End: 47-31-442277 mg, INTRAVENOUS, ONCE, 1 dose, On Thu09/14/24 at 1000, Administer over 5 minutes.dexamethasone 0.001 mg/mg / neomycin 0.0035 mg/mg / polymyxin b 10 unt/mg ophthalmic ointment (1 source)Aminoglycoside Antibacterial, Polymyxin-class Antibacterial, CorticosteroidStart: 07-01-2019 End: 73-59-0023igzjjvec/polymyxin b/dexametha(MAXITROL 3.5 MG/G-10,000 UNIT/G- 0.1 % EYE OINTMENT) four times a dayX 1 week then twice a day x 1 week then once a day x 1 week 3.5 g 0 07/01/2019 11/12/2021 Discontinued (Course of therapy completed)Comment on above:four times a day X 1 week then twice a day x 1 week then once a day x 1 weekdiphenhydrAMINE (5 sources)Histamine-1 Receptor AntagonistStart: 12-14-2024 End: 41-82-010805 mg, INTRAVENOUS, ONCE, 1 dose, On Thu12/14/24 at 1100Start: 11-23-2024 End: 82-47-584428 mg, INTRAVENOUS, ONCE, 1 dose, On Thu11/23/24 at 1100Start: 11-02-2024 End: 66-98-007903 mg, INTRAVENOUS, ONCE, 1 dose, On Thu11/02/24 at 0930Start: 10-12-2024 End: 78-68-795154 mg, INTRAVENOUS, ONCE, 1 dose, On Thu10/12/24 at 1000Start: 09-14-2024 End: 47-96-498016 mg, INTRAVENOUS, ONCE, 1 dose, On Thu09/14/24 at 1000 doxycycline hyclate 100 mg oral capsule (10 sources)Tetracycline-class DrugStart: 09-19-2024 End: 14-93-6880wvvhhckpvsg hyclate (VIBRAMYCIN) 100 mg capsule 09/19/2024 11/02/2024 Discontinued (Course of therapy completed)erythromycin 0.005 mg/mg ophthalmic ointment (1 source)Macrolide, Macrolide AntimicrobialStart: 06-24-2019 End: 08-32-8400szkykqqjydlp ophthalmic ointment Apply 1/2 inch ribbon per application to incisions and INTO both eyes four times daily x 1 week, then twice daily x 1 week, then stop. 0 06/24/2019 11/12/2021 Discontinued (Course of therapy completed)Comment on above:Apply 1/2 inch ribbon per application to incisions and INTO both eyes four times daily x 1 week, then twice daily x 1 week, then stop.famciclovir 500 mg oral tablet (1 source)Herpes Simplex Virus Nucleoside Analog DNA Polymerase InhibitorStart: 12-14-2020 End: 84-77-9157bgjkliwkuzd (FAMVIR) 500 mg tablet2 ml famotidine 10 mg/ml injection (5 sources)Histamine-2 Receptor AntagonistStart: 12-14-2024 End: 95-45-907632 mg, INTRAVENOUS, ONCE, 1 dose, On Thu12/14/24 at 1100, REFRIGERATEStart: 11-23-2024 End: 76-62-088110 mg, INTRAVENOUS, ONCE, 1 dose, On Thu11/23/24 at 1100, REFRIGERATEStart: 11-02-2024 End: 49-15-626972 mg, INTRAVENOUS, ONCE, 1 dose, On Thu11/02/24 at 0930, REFRIGERATEStart: 10-12-2024 End: 04-86-032770 mg, INTRAVENOUS, ONCE, 1 dose, On Thu10/12/24 at 1000, REFRIGERATEStart: 09-14-2024 End: 54-44-339913 mg, INTRAVENOUS, ONCE, 1 dose, On Thu09/14/24 at 1000, REFRIGERATEfosaprepitant 150 mg injection (3 sources)Start: 12-14-2024 End: 52-10-9198761 mg, INTRAVENOUS, Administer over 30 Minutes, ONCE, 1 dose, On Thu12/14/24 at 1100, RefrigerateStart: 10-12-2024 End: 48-04-2354800 mg, INTRAVENOUS, Administer over 30 Minutes, ONCE, 1 dose, On Thu10/12/24 at 1000, Approx TotalVolume: 115 mL RefrigerateStart: 09-14-2024 End: 86-94-9077880 mg, INTRAVENOUS, Administer over 30 Minutes, ONCE, 1 dose, On Thu09/14/24 at 1000, Approx TotalVolume: 115 mL Refrigeratefosaprepitant 150 mg in NaCl 0.9% 100 mL (EMEND) (2 sources)Start: 11-23-2024 End: 22-94-8966950 mg, INTRAVENOUS, Administer over 30 Minutes, ONCE, 1 dose, On Thu11/23/24 at 1100, Approximate Total Volume = 115 mL RefrigerateStart: 11-02-2024 End: 43-02-0330993 mg, INTRAVENOUS, Administer over 30 Minutes, ONCE, 1 dose, On Thu11/02/24 at 1000, Approximate Total Volume = 115 mL Refrigerateiv contrast (will be provided with radiology test) (13 sources)Start: 01-26-2025 End: 56-48-0102ysrxce 1 dose intravenously onceiv contrast (will be provided with radiology test) Indications: 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) MRI Brain Inject, intravenously, once for 1 [...] MR contrast administration guidelines link 1 each 01/26/2025 01/27/2025 Start: 01-26-2025 End: 58-60-1277vselch 1 dose intravenously onceiv contrast (will be provided with radiology test) Indications: 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) MRI Brain Inject, intravenously, once for 1 [...] MR contrast administration guidelines link 1 each 01/26/2025 01/27/2025 Active Start: 12-14-2024 End: 89-59-7445sd contrast (will be provided with radiology test) [...] protocol in the MR contrast administration guidelines link.1 each 12/14/2024 12/15/2024 ActiveStart: 08-23-2024 End: 68-61-2826tnysmz 1 dose intravenously onceiv contrast (will be provided with radiology test) Indications: Malignant neoplasm of overlapping sites of right lung (HCC) MRI Brain Inject, intravenously, once for 1 dose.No IV access, insert saline lock prior to beginning of sedation, infusion, injection of imaging exam.Discontinue saline lock post exam. If Pt. has a central line or IVAD, may access for administration according to line specific nursing protocol.Once exam is complete flush line and de-access according to line specific nursingprotocol in the MR contrast administration guidelines link 1 Each 08/23/2024 08/24/2024 ExpiredStart: 08-23-2024 End: 64-23-9168drlrox 1 dose intravenously onceiv contrast (will be provided with radiology test) Indications: Malignant neoplasm of overlapping sites of right lung (HCC) MRI Brain Inject, intravenously, once for 1 dose.No IV access, insert saline lock prior to beginning of sedation, infusion, injection of imaging exam.Discontinue saline lock post exam. If Pt. has a central line or IVAD, may access for administration according to line specific nursing protocol.Once exam is complete flush line and de-access according to line specific nursingprotocol in the MR contrast administration guidelines link 1 Each 08/23/2024 08/24/2024 ActiveStart: 07-29-2024 End: 33-27-6739fm contrast (will be provided with radiology test) Indications: Lytic bone lesions on xray , Thyroid nodule , Thyroid nodule greater than or equal to 1 cm in diameter incidentally noted on imaging study CT Chest ABD/PEL- Inject, intravenously, once for 1 dose.No IV access, insert saline lock prior to the beginning of sedation, infusion, injection of imaging exam. Discontinue saline lock post exam.If Pt. has a central line or IVAD, may access for administration according to line specific nursingprotocol. Once exam is complete flush line and de-access according to line specific nursing protocol in the CT contrast administration guidelines link. 1 Each 07/29/2024 07/30/2024 Active lisdexamfetamine dimesylate 30 mg oral capsule (1 source)Central Nervous System Stimulanttake 1 capsule by mouth once daily lisdexamfetamine (VYVANSE) 30 mg capsule Take 30 mg by mouth once daily. 0 ActiveComment on above:Take 30 mg by mouth once daily.Magnesium Oxide-Mg Amino Acid Chelate (MAGNESIUM) 300 mg cap (3 sources)take 1 capsule by mouth once daily at bedtimeMagnesium Oxide-Mg Amino Acid Chelate (MAGNESIUM) 300 mg cap Take 300 mg by mouth daily at bedtime.0 ActiveComment on above:Take 300 mg by mouth daily at bedtime.50 ml magnesium sulfate 40 mg/ml injection (1 source)Start: 12-14-2024 End: 63-70-0514qffe 2 g intravenously every hour2 g, INTRAVENOUS, at 25-50 mL/hr, Administer over 1-2 Hours, ONCE, 1 dose, On Thu12/14/24 at 1100, M agnesium sulfate iv bolus will be infused at a rate of 1 gram/hr The following nursing units mayadminister 2 g dose over 1 hour if necessary: ICUs/PACU/ED, Adult Hematology/Oncology, Labor and Delivery, Cardiac Stepdown, Headache Clinic If necessary, a magnesium sulfate bolus may be administered greater than 2 g/hr for the following indications: Adult and Pediatric Asthma Exacerbations, T[place] de Pointes, Pediatric BMT and Hematology/Oncology, Eclampsia or Preeclampsiamorphine sulfate 15 mg extended release oral tablet (15 sources)Opioid AgonistStart: 08-26-2024 End: 63-66-6703yknf 1 tablet by mouth twice dailymorphine SR (MS CONTIN) 15 mg 12 hr tablet Indications: Metastatic cancer to bone (HCC) , Neoplasm related pain Take 1 tablet by mouth two times a day for 30 days. 60 tablet 2024 11/02/2024 Discontinued (Discontinued by Patient)naloxone hydrochloride 40 mg/ml nasal spray (20 sources)Opioid AntagonistStart: 08-26-2024 End: 50-86-7317legamnad 4 mg/actuation nasal spray (NARCAN) Use 1 spray in one nostril as needed for overdose. Mayrepeat every 2 to 3 min in alternating nostrils until medical assistance is available 1 Each 1 08/26/2024 01/26/2025 DiscontinuedPACLitaxel 300 mg in NaCl 0.9% 590 mL (TAXOL) (3 sources)Start: 12-14-2024 End: 08-12-9206297 mg (rounded from 304.5 mg = 150 mg/m2 2.03 m2 Treatment Plan BSA from Recorded weight), INTRAVENOUS, at 196.67 mL/hr, Administer over 3 Hours, ONCE, 1 dose, On Thu12/14/24 at 1230, EXP: 109911/24/24 Hazardous Chemotherapy Drug: Use appropriate PPE. Antineoplastic Irritant with Vesicant Potential. Administer with non-DEHP 0.2 micron filter and tubing.Start: 11-23-2024 End: 00-09-1446792 mg (rounded from 304.5 mg = 150 mg/m2 2.03 m2 Treatment Plan BSA from Recorded weight), INTRAVENOUS, at 196.67 mL/hr, Administer over 3 Hours, ONCE, 1 dose, On Thu11/23/24 at 1200, EXP: 109911/24/24 Hazardous Chemotherapy Drug: Use appropriate PPE. Antineoplastic Irritant with Vesicant Potential.Administer with non-DEHP 0.2 micron filter and tubing.Start: 11-02-2024 End: 82-35-8326409 mg (rounded from 304.5 mg = 150 mg/m2 2.03 m2 Treatment Plan BSA from Recorded weight), INTRAVENOUS, at 196.67 mL/hr, Administer over 3 Hours, ONCE, 1 dose, On Thu11/02/24 at 1030, EXP: 11/06/2024 0945 RT Hazardous Chemotherapy Drug: Use appropriate PPE. Antineoplastic Irritant with Vesicant Potential. Administer with non-DEHP 0.2 micron filter and tubing.PACLitaxel 360 mg in NaCl 0.9% 600 mL (TAXOL) (2 sources)Start: 10-12-2024 End: 88-27-0857672 mg (rounded from 369.25 mg = 175 mg/m2 2.11 m2 Treatment Plan BSA from Recorded weight), INTRAVENOUS, at 200 mL/hr, Administer over 3 Hours, ONCE, 1 dose, On Thu10/12/24 at 1100, EXP: 10/16/2024 1010 RT Hazardous Chemotherapy Drug: Use appropriate PPE. Antineoplastic Irritant with Vesicant Potential. Administer with non-DEHP 0.2 micron filter and tubing.Start: 09-14-2024 End: 94-55-2676332 mg (rounded from 369.25 mg = 175 mg/m2 2.11 m2 Treatment Plan BSA from Recorded weight), INTRAVENOUS, at 200 mL/hr, Administer over 3 Hours, ONCE, 1 dose, On Thu09/14/24 at 1100, EXP: 09/18/2024 1000 RT Hazardous Chemotherapy Drug: Use appropriate PPE. Antineoplastic Irritant with Vesicant Potential. Administer with non-DEHP 0.2 micron filter and tubing.5 ml palonosetron 0.05 mg/ml injection (5 sources)Serotonin-3 Receptor AntagonistStart: 12-14-2024 End: 50.25 mg, INTRAVENOUS, ONCE, 1 dose, On Thu12/14/24 at 1100, Flush IV line with NS prior to and following administration.Start: 11-23-2024 End: 50.25 mg, INTRAVENOUS, ONCE, 1 dose, On Thu11/23/24 at 1100, Flush IV line with NS prior to and following administration.Start: 11-02-2024 End: 50.25 mg, INTRAVENOUS, ONCE, 1 dose, On Thu11/02/24 at 0930, Flush IV line with NS prior to and following administration.Start: 10-12-2024 End: 50.25 mg, INTRAVENOUS, ONCE, 1 dose, On Thu10/12/24 at 1000, Flush IV line with NS prior to and following administration.Start: 09-14-2024 End: 50.25 mg, INTRAVENOUS, ONCE, 1 dose, On Thu09/14/24 at 1000, Flush IV line with NS prior to and following administration.pegfilgrastim-cbqv 6 mg wearable injection (UDENYCA ONBODY) (5 sources)Start: 12-14-2024 End: 56 mg, SUBCUTANEOUS, ONCE, 1 dose, On Thu12/14/24 [...] fails, the indicator light will turn red. RefrigerateStart: 11-23-2024 End: mg, SUBCUTANEOUS, ONCE, 1 dose, On Thu11/23/24 at 1100, In order to administer the [...] fails, the indicator light will turn red. RefrigerateStart: 11-02-2024 End: 56 mg, SUBCUTANEOUS, ONCE, 1 dose, On Thu11/02/24 at 0930, In order to administer the on-body injector, [...] fails, the indicator light will turn red. RefrigerateStart: 10-12-2024 End: mg, SUBCUTANEOUS, ONCE, 1 dose, On Thu10/12/24 at 1000, In order to administer the on-body injector, [...] fails, the indicator light will turn red. RefrigerateStart: 09-14-2024 End: mg, SUBCUTANEOUS, ONCE, 1 dose, On Thu09/14/24 at 1000, In order to administer the on-body injector, [...] fails, the indicator light will turn red. Refrigeratepembrolizumab 200 mg in NaCl 0.9% 66 mL (KEYTRUDA) (6 sources)Start: 01-04-2025 End: mg, INTRAVENOUS, Administer over 30 Minutes, ONCE, 1 dose, On 01/04/25 at 1100, Approx TotalVolume: 66 mL EXP: 01/08/2025 1040 Refrigerated Administer with 0.2 micron filter.Start: 12-14-2024 End: 18-03-4264687 mg, INTRAVENOUS, Administer over 30 Minutes, ONCE, 1 dose, On Thu12/14/24 at 1130, Approx TotalVolume: 66 mL EXP: 12/18/2024 1100 Refrigerated Administer with 0.2 micron filter.Start: 11-23-2024 End: 31-49-6095701 mg, INTRAVENOUS, Administer over 30 Minutes, ONCE, 1 dose, On Thu11/23/24 at 1130, Approx Total Volume: 66 mL EXP 1700 11/23/24 Administer with 0.2 micron filter.Start: 11-02-2024 End: 82-18-0251279 mg, INTRAVENOUS, Administer over 30 Minutes, ONCE, 1 dose, On Thu11/02/24 at 1000, Approx TotalVolume: 66 mL EXP: 11/06/2024 0935 Refrigerated Administer with 0.2 micron filter.Start: 10-12-2024 End: 34-42-9802513 mg, INTRAVENOUS, Administer over 30 Minutes, ONCE, 1 dose, On Thu10/12/24 at 1030, Approx TotalVolume: 66 mL EXP: 10/16/2024 1010 Refrigerated Administer with 0.2 micron filter.Start: 09-14-2024 End: 19-25-0768892 mg, INTRAVENOUS, Administer over 30 Minutes, ONCE, 1 dose, On Thu09/14/24 at 1030, Approx TotalVolume: 66 mL EXP: 09/18/2024 1000 RT Administer with 0.2 micron filter.pravastatin sodium 10 mg oral tablet (16 sources)HMG-CoA Reductase InhibitorStart: 07-24-2021 End: 16-72-6346mjwslzdspxt (PRAVACHOL) 10 mg tablet Take 10 mg by mouth as needed. 07/24/2021 08/26/2024 DiscontinuedComment on above:Take 10 mg by mouth once daily.primidone 50 mg oral tablet (20 sources)Anti-epileptic AgentStart: 11-22-2024 End: 38-81-5442nlrc 1 tablet by mouth once daily at bedtimeprimidone (MYSOLINE) 50 mg tablet Take 25-50 mg by mouth daily at bedtime. 11/22/2024 02/10/2025 Dis continuedsertraline 25 mg oral tablet (1 source)Serotonin Reuptake InhibitorStart: 12-27-2020 End: 35-31-9037cjoiingbll (ZOLOFT) 25 mg tabletsotorasib (LUMAKRAS) 240 mg tablet (12 sources)Start: 01-26-2025 End: 81-71-0070opor 4 tablets by mouth once dailysotorasib (LUMAKRAS) 240 mg tablet Take 4 tablets by mouth once daily. 120 tablet 01/26/2025 02/03/2025 DiscontinuedStart: 01-26-2025 End: 41-37-9971knuw 4 tablets by mouth once dailysotorasib (LUMAKRAS) 240 mg tablet Take 4 tablets by mouth once daily. 120 tablet 01/26/2025 02/25/2025 Activesulfamethoxazole 800 mg / trimethoprim 160 mg oral tablet (9 sources)Dihydrofolate Reductase Inhibitor Antibacterial, Sulfonamide AntimicrobialStart: 06-07-2024 End: 77-83-5771ktxb 1 tablet by mouth every twelve hoursSulfamethoxazole- Trimethoprim (Bactrim Ds) 800-160 mg tablet Discontinued 1 TAB PO Every 12 hours 2Noveer 2023 1:00am September 07, 2024 7:01amZinc (1 source)Start: 08-03-2018 End: 14-03-6976Zotl 50 mg tab Take by mouth. 0 08/03/2018 11/12/2021 DiscontinuedComment on above:Take by mouth. Problems Active Problems Problem ClassificationProblemDateDocumented DateEpisodic/ChronicAbdominal pain (15 sources)Abdominal pain; Translations: [Unspecified abdominal pain]Onset: 73-46-8166PdbhibbaMpfok cerebrovascular disease (8 sources)Cerebrovascular accident; Translations: [Cerebral infarction, unspecified]Onset: 871778-92-1432DzavrezIllebvh disorders (20 sources)Anxiety state; Translations: [Generalized anxiety disorder]Onset: 036894-37-4501RjqhxzdEtlpkekcq and vision defects (6 sources)Visual impairmentOnset: 104803-98-0133UnkaaqqCsjlcqn on above: Outside Source Comment: Overview: 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Cancer of bronchus; lung (20 sources)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; Translations: [Malignant neoplasm of upper lobe, left bronchus or lung]Onset: 421556-44-7700OvaqfxlOmvemzp and circulatory congenital anomalies (20 sources)Congenital anomaly of cerebrovascular system; Translations: [Other malformations of cerebral vessels]Onset: 800606-96-0662OqswbmfKbgjgnk obstructive pulmonary disease and bronchiectasis (3 sources)Chronic obstructive lung disease; Translations: [Chronic obstructive pulmonary disease, unspecified]Onset: 250935-30-9272ZobxgkmCnieigpqzp and other anemia (9 sources)Anemia; Translations: [Anemia, unspecified]95-79-4174EirbokeiTyipmgfj of white blood cells (1 source)Agranulocytosis secondary to cancer chemotherapy; Translations: [Chemotherapy-induced neutropenia]Onset: 91-94-2161NnuischMvlakvmgc of lipid metabolism (14 sources)Hyperlipidemia; Translations: [Mixed hyperlipidemia]Onset: 711246-77-8320OneeswrR Codes: Adverse effects of medical drugs (4 sources)Adverse effect of antineoplastic and immunosuppressive drugs, initial encounter; Translations: [Adverse effect of other opioids, initial encounter] Onset: 05-61-1920BnhdeminDjcrmzzgentsj symptoms and ill-defined conditions (12 sources)Stress incontinence (female) (male); Translations: [Genuine stress incontinence]Onset: 89-91-3521UpzxhalWhrldcushsoms symptoms and ill-defined conditions (12 sources)Hypercalciuria; Translations: [Hypercalciuria]Onset: 01-15-2022 EpisodicHeadache; including migraine (20 sources)Migraine; Translations: [Migraine, unspecified, not intractable, without status migrainosus]Onset: 792522-61-7317OswnpdpBvcemsjw; including migraine (10 sources)Zbqdndiu86-89-7910QdfdsviiNmkc effects of cerebrovascular disease (7 sources)History of cerebrovascular accident with residual deficit; Translations: [Unspecified sequelae of cerebral infarction]Onset: 09-07-2024 21-00-5292LzbevsbWpdnhuqyvxh chemotherapy; radiotherapy (2 sources)Patient encounter status; Translations: [Encounter for antineoplastic chemotherapy]Onset: 470307-71-6088QxwzxqgWyqosgc and fatigue (10 sources)Fatigue due to chemotherapy; Translations: [Other fatigue]Onset: 174138-89-1829GnvhlodiHrlhnfahi neoplasm without specification of site (1 source)Malignant (primary) neoplasm, unspecified; Translations: [Secondary malignant neoplasm of unspecified site (HCC)]Onset: 13-13-9697EmyznzqPnfmtutdox disorders (20 sources)Menopausal syndrome; Translations: [Menopausal and female climacteric states]Onset: 75-32-5659WfijjtuTabpglxyrqugpb (14 sources)Arthritis; Translations: [Primary osteoarthritis, right ankle and foot]Onset: 631678-22-4022XvbfuiwIhqxz aftercare (4 sources)Under care of palliative care physician; Translations: [Encounter for palliative care]51-84-6552RhoxahppSgvqw circulatory disease (8 sources)History of cerebrovascular accident; Translations: [Personal history of transient ischemic attack (TIA), and cerebral infarction without residual deficits]80-96-2255MpsbalwtEsign connective tissue disease (10 sources)Anzlltozd04-63-7322IoaphznyQttll connective tissue disease (1 source)Disorder of rotator cuff; Translations: [Unspecified disorder of synovium and tendon, right shoulder]37-92-4712UlsmbdimFxcxz connective tissue disease (3 sources)Pain of right upper arm; Translations: [Pain in right upper arm] 35-96-1153MquxszgnCessm diseases of kidney and ureters (3 sources)Acquired renal cyst without neoplastic change; Translations: [Cyst of kidney, acquired]Onset: 20-33-3966ItpmgotoWkyfm diseases of kidney and ureters (7 sources)Simple renal izzv13-93-9543WnjpeaeqGrnwt diseases of kidney and ureters (3 sources)Hydronephrosis; Translations: [Unspecified hydronephrosis]Onset: 79-36-0682NwbcxbozGnzkv diseases of kidney and ureters (3 sources)Urinary tract obstruction; Translations: [Hydronephrosis with renal and ureteral calculous obstruction]Onset: 36-30-5018JmiwfeyxBmjvq ear and sense organ disorders (6 sources)Hearing lossOnset: 105192-76-7257ZfyvpopTmkoffk on above: Outside Source Comment: Overview: 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Other eye disorders (20 sources)Vertical nystagmus; 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]Onset: 344467-23-3242WgdmtthXghos eye disorders (10 sources)Btxdeqinm40-26-6118KfycsoiVlzxd gastrointestinal disorders (4 sources)Therapeutic opioid induced constipation; Translations: [Drug induced constipation]77-94-6252DirjdetiGobpj gastrointestinal disorders (4 sources)Loose stool; Translations: [Other fecal abnormalities]09-09-2024 EpisodicOther gastrointestinal disorders (1 source)Diarrhea due to drug; Translations: [Toxic gastroenteritis and colitis]17-34-3256InicxlyeAogir hereditary and degenerative nervous system conditions (20 sources)Myoclonus; Translations: [Myoclonus]99-07-7748JkuwaveRitmg hereditary and degenerative nervous system conditions (1 source)Blepharospasm; Translations: [Blepharospasm]80-03-1652YnvxsvlWrkhk injuries and conditions due to external causes (1 source)Foreign body in bladder; Translations: [Foreign body in bladder, initial encounter]Onset: 24-04-5321VlviyhfqKgaqe lower respiratory disease (10 sources)Lung mass; Translations: [Other nonspecific abnormal finding of lung field]57-49-7500AljlnxoyXhdfh lower respiratory disease (2 sources)Dyspnea; Translations: [Shortness of breath]72-41-1964ChqsrjunAddbj lower respiratory disease (1 source)Chronic cough; Translations: [Chronic cough]Onset: 61-86-0039Ztnnprfj Other lower respiratory disease (1 source)Shortness of breath; Translations: [SOB (shortness of breath)]Onset: 73-57-5981XnkjnrnsEezti nervous system disorders (4 sources)Pain due to neoplastic disease; Translations: [Neoplasm related pain (acute) (chronic)]16-28-8231WsaspjdYiwzg nervous system disorders (1 source)Neoplasm related pain (acute) (chronic); Translations: [Neoplasm related pain]Onset: 56-97-5305YwtimyfMbwhw nervous system disorders (1 source)Facial spasm; 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, unspecified] EpisodicOther nervous system disorders (4 sources)Facial nerve motor disorder; Translations: [Other disorders of facial nerve]EpisodicOther nervous system disorders (3 sources)Facial palsy; 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]66-01-7766LwmkzgsiFyosr nervous system disorders (16 sources)Trigeminal neuralgia; Translations: [Trigeminal neuralgia]Onset: 677354-37-6030CbtedazuIaxej nervous system disorders (8 sources)Tremor; Translations: [Tremor, unspecified]Onset: 05-27-2024 99-33-9593YmnoqsflUlvlzjr on above:left handOther nervous system disorders (2 sources)Tremor, unspecified; Translations: [Tremor, unspecified]Onset: 22-22-5778FwrsupozXmmip nervous system disorders (1 source)Hemifacial spasm; 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, unspecified] 58-84-6617BremzbydLmxmm non-traumatic joint disorders (2 sources)Chronic pain of right upper limb; Translations: [Pain in right shoulder]59-75-4004WhikwkqcZwfro non-traumatic joint disorders (2 sources)Hip pain; Translations: [Pain in right hip]23-59-0943EtthmwcmTbnyp non-traumatic joint disorders (5 sources)Joint pain; Translations: [Pain in unspecified joint]09-07-2024 EpisodicOther nutritional; endocrine; and metabolic disorders (20 sources)Obese class I; Translations: [Obesity, unspecified]Onset: 11-12-2021 ChronicOther nutritional; endocrine; and metabolic disorders (12 sources)Body mass index 30+ - obesity; Translations: [Body mass index (BMI) 31.0-31.9, adult]Onset: 337548-54-5067AltssveMrytq nutritional; endocrine; and metabolic disorders (2 sources)Body mass index (BMI) 31.0-31.9, adult; Translations: [Body mass index (BMI) 31.0-31.9, adult]Onset: 97-10-2252GwwvuhfTshir nutritional; endocrine; and metabolic disorders (2 sources)Loss of appetite; Translations: [Anorexia]74-15-6895YkrlximmSdozl screening for suspected conditions (not mental disorders or infectious disease) (1 source)MRI scan abnormal; Translations: [Abnormal findings on diagnostic imaging of other specified body structures]48-21-5191IereuvgJxmtw skin disorders (3 sources)Swelling of upper limb; Translations: [Other specified soft tissue disorders]35-72-9229RwkszkxdHacpfdgbi by other medications and drugs (1 source)Oral mucositis (ulcerative) due to antineoplastic therapy; Translations: [Mucositis due to antineoplastic therapy]Onset: 14-60-8339Doeuqdau Residual codes; unclassified (6 sources)Hypnapompic hallucinations; Translations: [Other hallucinations] 41-85-1822BaifrxefYhsihuhf codes; unclassified (1 source)Pain; Translations: [Pain, unspecified]09-33-9756SkvtzjsfPaplfbru codes; unclassified (1 source)Patient encounter status; Translations: [Encounter for immunotherapy] 18-14-8172CypwoxwcTdlldkjra and history of mental health and substance abuse codes (5 sources)Ex-smoker; Translations: [Personal history of nicotine dependence] Onset: 072452-08-2411JvtjeqzyWdthvlwod malignancies (20 sources)Secondary malignant neoplasm of bone; Translations: [Secondary malignant neoplasm of bone]88-19-3414EswnoizUihnkbovd malignancies (4 sources)Secondary malignant neoplastic disease; Translations: [Secondary malignant neoplasm of unspecified site]57-79-7773AmajaxiMkekniouc malignancies (4 sources)Secondary malignant neoplasm of unspecified site; Translations: [Other malignant neoplasm without specification of site]Onset: 09-07-2024 77-82-4457ZjstagcMmqlfumlq malignancies (1 source)Secondary malignant neoplasm of unknown site; Translations: [Secondary malignant neoplasm of unspecified site]42-67-2514FyxzkplRblvhvuip malignancies (2 sources)Secondary malignant neoplasm of bone; Translations: [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)]Onset: 89-69-5997Oltbqhb Secondary malignancies (1 source)Secondary malignant neoplasm of bone marrow; Translations: [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 This puts you at a higher risk for infection, illness, falls, and other injuries. Here are four ways to help you reduce your risk of frailty: 1. IDENTIFY EARLY SIGNS OF FRAILTY Discuss contributing factors and concerns with your doctor 2. BE ACTIVE Walking and light strengthening exercises will help reduce weakness 3. EAT WELL Aim for three healthy meals a day that are high in protein 4. THINK POSITIVE Keep your mind active by being sociable and continuing to learn References: Stay Strong: Four Ways to Beat the Frailty Risk [email or web address]://[email or web address].org/health/lxbltyfl-zkp-icdrakanmf/jvij-pqvrkf-wdpb- qtds-ab-ndph-the-fra ffoa-bufb39-42lcgn16-49-8165Wgamkisruezh (1 source)Cough, unspecified type; Translations: [Cough, unspecified type]Onset: 62-53-7095Jaywhhwkvwnu (1 source)Acute cough; Translations: [Acute cough]Onset: 04-12-2025 Past or Other Problems Problem ClassificationProblemDateDocumented DateEpisodic/Chronic Administrative/social admission (9 sources)Other reduced mobility; Translations: [Impaired mobility and activities of daily living]Onset: 376603-00-6995BwouurpoMzuaymmpn and vision defects (8 sources)Visual hallucinations; Translations: [Visual hallucinations]Onset: 774970-30-8916BnvkgirlQjoytskx of urinary tract (20 sources)Kidney stone; Translations: [Calculus of kidney]Onset: 01-15-2022 EpisodicCancer of bronchus; lung (9 sources)History of malignant neoplasm of thoracic cavity structure; Translations: [Personal history of other malignant neoplasm of bronchus and lung]Onset: 687728-57-4949QndghkvzScrmykftdh associated with dizziness or vertigo (8 sources)Dizziness; Translations: [Dizziness and giddiness]Onset: 08-11-2018 69-72-9523CbonziagSwhfcmugbi and other anemia (4 sources)Anemia, unspecified; Translations: [Anemia, unspecified]Onset: 055606-55-2560KzuscetsZzptonsiw of teeth and jaw (20 sources)Articular disc disorder of temporomandibular joint; Translations: [Articular disc disorder of temporomandibular joint, unspecified side]Onset: 295166-22-2559IujtvwxgVrsli of unknown origin (7 sources)Intermittent fever; Translations: [Fever, unspecified]Onset: 651344-95-9594PkkvkxreMitluoxn of upper limb (16 sources)Closed fracture of distal end of radius; Translations: [Unspecified fracture of the lower end of left radius, subsequent encounter for closed fracture with routine healing]Onset: 246828-33-3206CypwbrvwBszbgq and vomiting (2 sources)Nausea; Translations: [Nausea]Onset: 326958-44-9717Iudmdxlp Other aftercare (1 source)Encounter for palliative care; Translations: [Palliative care by specialist]Onset: 66-65-6208QjctmdhzXhlie bone disease and musculoskeletal deformities (1 source)Other specified disorders of bone density and structure, left thigh; Translations: [OTH D/O BONE DEN STRUCT LT THIGH]Onset: 80-02-6137AqpzawntCcvuu bone disease and musculoskeletal deformities (8 sources)Disorder of bone, unspecified; Translations: [Disorder of bone and cartilage, unspecified]Onset: 182453-39-5696MmnqrolmSdgjv connective tissue disease (20 sources)Trismus; Translations: [Cramp and spasm]Onset: EpisodicOther connective tissue disease (20 sources)Muscle pain; Translations: [Myalgia and myositis, unspecified]Onset: 585807-33-2285VhvmdwnkXrfjq connective tissue disease (20 sources)Muscle, ligament and fascia disorders; Translations: [Disorder of muscle, unspecified]Onset: 030665-94-3773JqwbqdhgRdewy connective tissue disease (1 source)Calcaneal spur, right foot; Translations: [CALCANEAL SPUR RIGHT FOOT] Onset: 33-71-6802SiotonlyWvfcl connective tissue disease (4 sources)Pain in right foot; Translations: [PAIN IN RIGHT FOOT]Onset: 03-20-2814LpvybylfTjyqo connective tissue disease (1 source)Pain in right upper arm; Translations: [Pain of right upper arm]Onset: 37-34-0071LasriyvdNijey connective tissue disease (1 source)Other specified soft tissue disorders; Translations: [Swelling of arm] Onset: 64-40-5825UeilulwsIefxk eye disorders (20 sources)Abducens nerve palsy; Translations: [Sixth [abducent] nerve palsy, unspecified eye]Onset: 266263-21-5846MbaepfiqQhmvm gastrointestinal disorders (3 sources)Other fecal abnormalities; Translations: [Abnormal feces]Onset: 910686-78-0211PcnhyxsbDkzws gastrointestinal disorders (1 source)Drug induced constipation; Translations: [Constipation due to opioid therapy]Onset: 46-61-4284LwgghsgxTplol lower respiratory disease (1 source)Other nonspecific abnormal finding of lung field; Translations: [Lung mass]Onset: 20-88-7698DakyubasAnqys nervous system disorders (20 sources)Cranial nerve disorder; Translations: [Cranial nerve disorder, unspecified]Onset: 358127-50-5047JrtwrqedYdogr nervous system disorders (8 sources)Alcala's palsy; 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]Onset: EpisodicOther non-traumatic joint disorders (8 sources)Pain of left wrist; Translations: [Pain in left wrist]Onset: 628596-80-7559NqwqcosbMvsgq non-traumatic joint disorders (3 sources)Pain in right shoulder; Translations: [Pain in joint, shoulder region]Onset: 426578-07-5578LdfsbwhwEcqtr non-traumatic joint disorders (4 sources)Pain in unspecified joint; Translations: [Pain in joint, site unspecified]Onset: 042916-91-9625RbkliewkIdzws non-traumatic joint disorders (1 source)Pain in right hip; Translations: [Pain in right hip]Onset: 07-29-2024 EpisodicPneumonia (except that caused by tuberculosis or sexually transmitted disease) (9 sources)Community acquired pneumonia; Translations: [Pneumonia, unspecified organism]Onset: 100636-46-4048GhcfenmjVzxudphn codes; unclassified (4 sources)Asymptomatic menopausal state; Translations: [ASYMPTOMATIC MENOPAUSAL STATE]Onset: 75-21-5473ZdfeihcbTivbradg codes; unclassified (1 source)Localized edema; Translations: [Localized edema]Onset: 11-08-2024 EpisodicResidual codes; unclassified (1 source)Other specified health status; Translations: [Other specified health status]Onset: 68-12-2675KyitdciqKtgxqwamcfo; intervertebral disc disorders; other back problems (16 sources)Neck pain; Translations: [Cervicalgia]Onset: EpisodicUnclassified (4 sources)Obstructive xibewgntxgntxh85-92-1294Xdmpthzpbtmt (1 source)Onset: 517372-97-0396Uenaypwinzta (1 source)Lytic bone lesions on wmbq25-97-7189 Results Test NameValueInterpretationReference RangeFacilityCBC W Auto Differential panel (Bld)on 93-35-9842Byfyzuldv (Bld) [#/Vol]10*3/uLNormal<0.11CWay[facility] on above:Order Comment: Specimen Type: BLOOD SPECIMENOrdering Facility: [facility] Address:[address] [place], [place] [address]Iuqmgabmw By: #### 70651-4 ####[facility] LABCLIA [id number] [place], [place] [address]Dtzepghtv/100 WBC (Bld)0.1 % NormalSelect [facility] on above:Order Comment: Specimen Type: BLOOD SPECIMENOrdering Facility: [facility] Address:[address] [place], [place] [address]Performed By: #### 00778-9 ####[facility] LABCLIA [id number] [place] [address] Differential cell count method Nom (Bld)AutoNormalClevelPsychiatric hospital Comment on above:Order Comment: Specimen Type: BLOOD SPECIMENOrdering Facility: [facility] Address:[address] [place] [address] Performed By: #### 15734-3 ####[facility] LABCLIA [id number] [place], [place] [address]Quwzntbzgrc (Bld) [#/Vol] 10*3/uLNormal<0.46[facility] on above:Order Comment: Specimen Type: BLOOD SPECIMENOrdering Facility: [facility] Address:[address] [place], [place] [address]Performed By: #### 05052-2 ####[facility] LABCLIA [id number] [place], [place] [address]Chtgnfzexsg/100 WBC (Bld)0.0 %NormalSelect Medical Specialty Hospital - [facility] on above:Order Comment: Specimen Type: BLOOD SPECIMENOrdering Facility: [facility] Address:[address] [place], [place] [address]Performed By: #### 86481-5 ####[facility] LABCLIA [id number] [place], [place] [address]Ldkcpmrnvuw distribution width (RBC) [Ratio]16.2 %High11.5-15.0[facility] on above:Order Comment: Specimen Type: BLOOD SPECIMENOrdering Facility: [facility] Address:[address] [place], [place] [address]Performed By: #### 50354- 8 ####[facility] LABCLIA [id number] [place], [place] [address]Cxyhmefutf (Bld) [Volume fraction]36.3 %Pvosgh64.0-46.0 [facility] on above:Order Comment: Specimen Type: BLOOD SPECIMENOrdering Facility: [facility] Address:[address] [place], [place] [address]Performed By: #### 91657-9 ####[facility] LABIA [id number] [place], [place] [address]Qchnvxxtfk (Bld) [Mass/Vol]10.9 g/dLLow11.5-15.5CWay[facility] on above:Order Comment: Specimen Type: BLOOD SPECIMENOrdering Facility: [facility] Address:[address] [place], [place] [address]Performed By: #### 16892- 8 ####[facility] LABIA [id number] [place], [place] [address]Fzalkqyj granulocytes (Bld) [#/Vol]0.06 10*3/uLNormal <0.10[facility] on above:Order Comment: Specimen Type: BLOOD SPECIMENOrdering Facility: [facility] Address:[address] [place], [place] [address]Performed By: #### 46974-6 ####[facility] LABIA [id number] [place], [place] [address]Pazyefvb granulocytes/100 WBC (Bld)0.7 %NormalSelect Medical Specialty [facility] on above: Order Comment: Specimen Type: BLOOD SPECIMENOrdering Facility: [facility] Address:[address] [place], [place] [address]Performed By: #### 44959- 8 ####[facility] LABIA [id number] [place], [place] [address]Imvligbdtat (Bld) [#/Vol]0.76 10*3/uLLow1.00-4.00 [facility] on above:Order Comment: Specimen Type: BLOOD SPECIMENOrdering Facility: [facility] Address:[address] [place], [place] [address]Performed By: #### 07772-1 ####[facility] LABCLIA [id number] [place], [place] [address]Nmssifqhpfl/100 WBC (Bld)8.4 %NormalSelect Medical Specialty [facility] on above:Order Comment: Specimen Type: BLOOD SPECIMENOrdering Facility: [facility] Address:[address] [place], [place] [address]Performed By: #### 52114-4 ####[facility] LABCLIA [id number] [place], [place] [address]QXF (RBC) [Entitic mass]28.1 ckSjpxfa85.0-34.0[facility] on above:Order Comment: Specimen Type: BLOOD SPECIMENOrdering Facility: [facility] Address:[address] [place], [place] [address]Performed By: #### 33324-3 ####[facility] LABIA [id number] [place], [place] [address]HESK (RBC) [Mass/Vol]30.0 g/dLLow30.5-36.0[facility] on above:Order Comment: Specimen Type: BLOOD SPECIMENOrdering Facility: [facility] Address:[address] [place], [place] [address]Performed By: #### 86304- 8 ####[facility] LABIA [id number] [place], [place] [address]USY (RBC) [Entitic vol]93.6 bPBahuyr40.0-100.0[facility] on above:Order Comment: Specimen Type: BLOOD SPECIMENOrdering Facility: [facility] Address:[address] [place], [place] [address]Performed By: #### 38752-6 ####[facility] LABIA [id number] [place], [place] [address]Ppzfjxvri (Bld) [#/Vol]0.23 10*3/uLNormal<0.87[facility] on above:Order Comment: Specimen Type: BLOOD SPECIMENOrdering Facility: [facility] Address:[address] [place], [place] [address]Performed By: #### 85697- 8 ####[facility] LABCLIA [id number] [place], [place] [address]Upxqzumna/100 WBC (Bld)2.5 %NormalSelect Medical Specialty [facility] on above:Order Comment: Specimen Type: BLOOD SPECIMENOrdering Facility: [facility] Address:[address] [place], [place] [address]Performed By: #### 97191-7 ####[facility] LABCLIA [id number] [place], [place] [address]Jsqqvodcnrf (Bld) [#/Vol]8.01 10*3/uLHigh1.45-7.50[facility] on above:Order Comment: Specimen Type: BLOOD SPECIMENOrdering Facility: [facility] Address:[address] [place], [place] [address]Performed By: #### 10544-1 ####[facility] LABCLIA [id number] [place], [place] [address]Wjmwupozsjo/100 WBC (Bld)88.3 %NormalSelect Medical Specialty [facility] on above:Order Comment: Specimen Type: BLOOD SPECIMENOrdering Facility: [facility] Address:[address] [place], [place] [address]Performed By: #### 67730-1 ####[facility] LABCLIA [id number] [place], [place] [address]Vuvqbwtah RBC (Bld) [#/Vol] 10*3/uLNormal<0.01[facility] on above:Order Comment: Specimen Type: BLOOD SPECIMENOrdering Facility: [facility] Address:[address] [place], [place] [address]Performed By: #### 05384-8 ####[facility] LABCLIA [id number] [place], [place] [address]Mymeqxdmk RBC/100 WBC (Bld) [Ratio]0.0 /100 WBCNormal [facility] on above:Order Comment: Specimen Type: BLOOD SPECIMENOrdering Facility: [facility] Address:[address] [place], [place] [address]Performed By: #### 77940-1 ####[facility] LABCLIA [id number] [place], [place] [address]Aobjgqmy mean volume (Bld) [Entitic vol]9.0 fLNormal9.0-12.7C[facility] on above:Order Comment: Specimen Type: BLOOD SPECIMENOrdering Facility: [facility] Address:[address] [place] [address] Performed By: #### 33283-2 ####[facility] LABIA [id number] [place], [place] [address]Jcuuqddnh (Bld) [#/Vol]398 10*3/xWZqhxra663-697DcrreeyrdSelect Medical Specialty Hospital [facility] on above:Order Comment: Specimen Type: BLOOD SPECIMENOrdering Facility: [facility] Address:[address] [place], [place] [address]Performed By: #### 34019-9 ####[facility] LABCLIA [id number] [place], [place] [address]ULC (Bld) [#/Vol]3.88 10*6/uLLow3.90-5.20[facility] on above:Order Comment: Specimen Type: BLOOD SPECIMENOrdering Facility: [facility] Address:[address] [place], [place] [address]Performed By: #### 48464-0 ####[facility] LABIA [id number] [place], [place] [address]QDM (Bld) [#/Vol]9.07 10*3/uL Normal3.70-11.00[facility] on above:Order Comment: Specimen Type: BLOOD SPECIMENOrdering Facility: [facility] Address:[address] [place], [place] [address]Performed By: #### 21878-1 ####[facility] LABCLIA [id number] [place] [address]ZZYHEGnp 42-74-5244MXWWMPCmlsagUvlajbwvnLima [facility] metabolic 2000 panelon 34-17-2195Lsipoxy [Mass/Vol]3.6 g/dLLow 3.9-4.9C[facility] on above:Order Comment: Specimen Type: BLOOD SPECIMENOrdering Facility: [facility] Address:[address] [place], [place] [address]Performed By: #### 25752-8 ####[facility] LABCLIA [id number] [place], [place] [address]SCO [Catalytic activity/Vol]91 U/SEtcudh18-946EjjvosefhSelect Medical [facility]ty [facility] on above:Order Comment: Specimen Type: BLOOD SPECIMENOrdering Facility: [facility] Address:[address] [place], [place] [address]Performed By: #### 15262-2 ####[facility] LABCLIA [id number] [place] [address]GAH [Catalytic activity/Vol]12 U/LNormal7-38[facility] on above:Order Comment: Specimen Type: BLOOD SPECIMENOrdering Facility: [facility] Address:[address] [place], [place] [address]Performed By: #### 62010-0 ####[facility] LABCLIA [id number] [facility]ITALAMADEOARIZONA [facility] JOINT HOSPITALLLUVIALAKE [place], [place] [address]Lkjek gap [Moles/Vol]10 mmol/LNormal8-15[facility] on above:Order Comment: Specimen Type: BLOOD SPECIMENOrdering Facility: [facility] Address:[address] [place], [place] [address]Performed By: #### 41865- 8 ####[facility] LABCLIA [id number] [facility] [place], [place] [address]YLG [Catalytic activity/Vol]9 U/GKnb76-77NmzyvnxzxSelect [facility] on above:Order Comment: Specimen Type: BLOOD SPECIMENOrdering Facility: [facility] Address:[address] [place], [place] [address]Performed By: #### 76719-0 ####[facility] LABCLIA [id number] [place], [place] [address]Mtezzxyzj [Mass/Vol]0.2 mg/dL Normal0.2-1.3C[facility] on above:Order Comment: Specimen Type: BLOOD SPECIMENOrdering Facility: [facility] Address:[address] [place], [place] [address]Performed By: #### 04047-3 ####[facility] LABCLIA [id number] [facility] [place] [address] Calcium [Mass/Vol]9.7 mg/dLNormal8.5-10.2C[facility] on above:Order Comment: Specimen Type: BLOOD SPECIMENOrdering Facility: [facility] Address:[address] [place], [place] [address]Performed By: #### 06010-7 ####[facility] LABCLIA [id number] [facility] H[facility]ITALAM[place], [place] [address]Yxoaphcp [Moles/Vol]102 mmol/CJbknbf97-342JnarhotmfSelect [facility]ty [facility] on above:Order Comment: Specimen Type: BLOOD SPECIMENOrdering Facility: [facility] Address:[address] [place], [place] [address]Performed By: #### 87191-2 ####[facility] LABIA [id number] [place], [place] [address]XD8 [Moles/Vol] 28 mmol/KRhnemt87-28ZxgpspcqeSelect [facility] on above:Order Comment: Specimen Type: BLOOD SPECIMENOrdering Facility: [facility] Address:[address] [place], [place] [address]Schizwgjf By: #### 61407-1 ####[facility] LABCLIA [id number] [place], [place] [address]Nzsznctutc [Mass/Vol]0.46 mg/dLLow0.58-0.96[facility] on above:Order Comment: Specimen Type: BLOOD SPECIMENOrdering Facility: [facility] Address:[address] [place], [place] [address]Performed By: #### 94701-8 ####[facility] LABCLIA [id number] [place], [place] [address]kNLSoi SerPlBld CKD-EPI 1727860 mL/min/1.73m???Normal>=60[facility] on above:Order Comment: Specimen Type: BLOOD SPECIMENOrdering Facility: [facility] Address:[address] [place], [place] [address]Result Comment: Estimated Glomerular Filtration Rate (eGFR) is calculated using the 2020 CKD-EPI creatinine equation. This equation utilizes serum creatinine, sex, and age as parameters. The creatinine assay has traceable calibration to isotope dilution- mass spectrometry. Refer to KDIGO guidelines for clinical interpretation. In patients with unstable renal function, e.g. those with acute kidney injury, the eGFR may not accurately reflect actual GFR.Performed By: #### 81924-3 ####[facility] LABCLIA [id number] [place], [place] [address]Budrrza [Mass/Vol]141 mg/dBRult84-25IzmjpnourSelect [facility] on above:Order Comment: Specimen Type: BLOOD SPECIMENOrdering Facility: [facility] Address:[address] [place], [place] [address]Result Comment: The [place] Diabetes [employer] (ADA) provides guidance for cutoff values for fasting glucose and random glucose. The ADA defines fasting as no caloric intake for at least 8 hours. Fasting plasma glucose results between 100 to 125 mg/dL indicate increased risk for diabetes (prediab etes).Fasting plasma glucose results greater than or equal to 126 mg/dL meet the criteria for diagnosis of diabetes. In the absence of unequivocal hyperglycemia, results should be confirmed by repeattesting. In a patient with classic symptoms of hyperglycemia or hyperglycemic crisis, random plasmaglucose results greater than or equal to 200 mg/dL meet the criteria for diagnosis of diabetes.Reference: Standards of Medical Care in Diabetes 2016, [place] [employer]. Diabetes Care. 2016.39(Suppl 1).Performed By: #### 38048-0 ####[facility] LABCLIA [id number] [place], [place] [address]Pyuqotuij [Moles/Vol]4.2 mmol/LNormal3.7-5.1C[facility] on above:Order Comment: Specimen Type: BLOOD SPECIMENOrdering Facility: [facility] Address:[address] [place], [place] [address]Performed By: #### 43359-8 ####[facility] LABCLIA [id number] [place], [place] [address]Fjzepyz [Mass/Vol]7.4 g/dLNormal6.3-8.0[facility] on above:Order Comment: Specimen Type: BLOOD SPECIMENOrdering Facility: [facility] Address:[address] [place], [place] [address]Performed By: #### 60191- 8 ####[facility] LABCLIA [id number] [place], [place] [address]Lzizvf [Moles/Vol]140 mmol/YLbutdj091-741JzcztygvhSelect [facility] on above:Order Comment: Specimen Type: BLOOD SPECIMENOrdering Facility: [facility] Address:[address] [place], [place] [address]Performed By: #### 39781-6 ####[facility] LABIA [id number] [place], [place] [address]Xsod nitrogen [Mass/Vol]14 mg/dLNormal7-21[facility] on above:Order Comment: Specimen Type: BLOOD SPECIMENOrdering Facility: [facility] Address:[address] [place], [place] [address]Performed By: #### 04543-4 ####[facility] LABCLIA [id number] [place], [place] [address]PQAXns 29-66-1828JEDOHxxhpdItxjgxehn Clinic ClevelandCBC W Auto Differential panel (Bld)on 36-49-9946Wlsdnjuoi (Bld) [#/Vol]10*3/uLNormal <0.11C[facility] on above:Order Comment: Specimen Type: BLOOD SPECIMENOrdering Facility: [facility] Address:[address] [place], [place] [address]Performed By: #### 08457-1 ####[facility] LABCLIA [id number] [place] [address] Basophils/100 WBC (Bld)0.1 %NormalSelect Medical [facility]ty [facility] on above: Order Comment: Specimen Type: BLOOD SPECIMENOrdering Facility: [facility] Address:[address] [place], [place] [address]Performed By: #### 84876- 8 ####[facility] LABCLIA [id number] [place], [place] [address]Blkbyocdmmvi cell count method Nom (Bld)AutoNormal [facility] on above:Order Comment: Specimen Type: BLOOD SPECIMENOrdering Facility: [facility] Address:[address] [place], [place] [address]Performed By: #### 98687-9 ####[facility] LABCLIA [id number] [place], [place] [address]Xohdqhqpkqg (Bld) [#/Vol]10*3/uLNormal<0.46[facility] on above:Order Comment: Specimen Type: BLOOD SPECIMENOrdering Facility: [facility] Address:[address] [place], [place] [address]Performed By: #### 81254- 8 ####[facility] LABCLIA [id number] [place], [place] [address]Xsubhuxumff/100 WBC (Bld)0.0 %NormalSelect Medical [facility]ty [facility] on above:Order Comment: Specimen Type: BLOOD SPECIMENOrdering Facility: [facility] Address:[address] [place], [place] [address]Performed By: #### 29448-1 ####[facility] LABIA [id number] [place], [place] [address]Ouvyskiaemg distribution width (RBC) [Ratio]15.7 %High11.5-15.0[facility] on above:Order Comment: Specimen Type: BLOOD SPECIMENOrdering Facility: [facility] Address:[address] [place], [place] [address]Performed By: #### 46974- 8 ####[facility] LABIA [id number] [place], [place] [address]Wfballosah (Bld) [Volume fraction]33.0 %Low36.0-46.0 [facility] on above:Order Comment: Specimen Type: BLOOD SPECIMENOrdering Facility: [facility] Address:[address] [place], [place] [address]Performed By: #### 03920-5 ####[facility] LABIA [id number] [place], [place] [address]Wrcdgmdmnv (Bld) [Mass/Vol]9.9 g/dLLow11.5-15.5CWay[facility] on above:Order Comment: Specimen Type: BLOOD SPECIMENOrdering Facility: [facility] Address:[address] [place], [place] [address]Performed By: #### 34113- 8 ####[facility] LABIA [id number] [place], [place] [address]Jpzkgqpd granulocytes (Bld) [#/Vol]0.03 10*3/uLNormal <0.10[facility] on above:Order Comment: Specimen Type: BLOOD SPECIMENOrdering Facility: [facility] Address:[address] [place], [place] [address]Performed By: #### 69430-1 ####[facility] LABIA [id number] [place], [place] [address]Qkokwdkz granulocytes/100 WBC (Bld)0.3 %NormalSelect Medical Specialty [facility] on above: Order Comment: Specimen Type: BLOOD SPECIMENOrdering Facility: [facility] Address:[address] [place], [place] [address]Performed By: #### 18294- 8 ####[facility] LABIA [id number] [place], [place] [address]Dmgguejrunc (Bld) [#/Vol]0.59 10*3/uLLow1.00-4.00 [facility] on above:Order Comment: Specimen Type: BLOOD SPECIMENOrdering Facility: [facility] Address:[address] [place], [place] [address]Performed By: #### 07212-7 ####[facility] LABIA [id number] [place], [place] [address]Kctcwwdorbi/100 WBC (Bld)6.7 %NormalSelect Medical Specialty [facility] on above:Order Comment: Specimen Type: BLOOD SPECIMENOrdering Facility: [facility] Address:[address] [place], [place] [address]Performed By: #### 17698-2 ####[facility] LABIA [id number] [place], [place] [address]PZU (RBC) [Entitic mass]28.9 spNkydth81.0-34.0[facility] on above:Order Comment: Specimen Type: BLOOD SPECIMENOrdering Facility: [facility] Address:[address] [place], [place] [address]Performed By: #### 40188-3 ####[facility] LABIA [id number] [place], [place] [address]AVEV (RBC) [Mass/Vol]30.0 g/dLLow30.5-36.0[facility] on above:Order Comment: Specimen Type: BLOOD SPECIMENOrdering Facility: [facility] Address:[address] [place], [place] [address]Performed By: #### 36146- 8 ####[facility] LABCLIA [id number] [place], [place] [address]JZO (RBC) [Entitic vol]96.2 lNQqhnhd97.0-100.0[facility] on above:Order Comment: Specimen Type: BLOOD SPECIMENOrdering Facility: [facility] Address:[address] [place], [place] [address]Performed By: #### 83497-7 ####[facility] LABCLIA [id number] [place], [place] [address]Cvrplxtbh (Bld) [#/Vol]0.18 10*3/uLNormal<0.87[facility] on above:Order Comment: Specimen Type: BLOOD SPECIMENOrdering Facility: [facility] Address:[address] [place], [place] [address]Performed By: #### 65316- 8 ####[facility] LABCLIA [id number] [place], [place] [address]Zvqnbmfzb/100 WBC (Bld)2.0 %NormalSelect Medical Specialty [facility] on above:Order Comment: Specimen Type: BLOOD SPECIMENOrdering Facility: [facility] Address:[address] [place], [place] [address]Performed By: #### 82969-6 ####[facility] LABCLIA [id number] [place], [place] [address]Wwbwvlzilfp (Bld) [#/Vol]8.01 10*3/uLHigh1.45-7.50[facility] on above:Order Comment: Specimen Type: BLOOD SPECIMENOrdering Facility: [facility] Address:[address] [place], [place] [address]Performed By: #### 89548-5 ####[facility] LABCLIA [id number] [place], [place] [address]Ltaotcomenu/100 WBC (Bld)90.9 %NormalSelect Medical Specialty [facility] on above:Order Comment: Specimen Type: BLOOD SPECIMENOrdering Facility: [facility] Address:[address] [place], [place] [address]Performed By: #### 00138-8 ####[facility] LABCLIA [id number] [place], [place] [address]Wpralebkm RBC (Bld) [#/Vol] 10*3/uLNormal<0.01[facility] on above:Order Comment: Specimen Type: BLOOD SPECIMENOrdering Facility: [facility] Address:[address] [place], [place] [address]Performed By: #### 62879-1 ####[facility] LABIA [id number] [place], [place] [address]Bkjocjrgk RBC/100 WBC (Bld) [Ratio]0.0 /100 WBCNormal [facility] on above:Order Comment: Specimen Type: BLOOD SPECIMENOrdering Facility: [facility] Address:[address] [place], [place] [address]Performed By: #### 89183-5 ####[facility] LABIA [id number] [place], [place] [address]Bikydeqp mean volume (Bld) [Entitic vol]9.4 fLNormal9.0-12.7C[facility] on above:Order Comment: Specimen Type: BLOOD SPECIMENOrdering Facility: [facility] Address:[address] [place] [address] Performed By: #### 96006-9 ####[facility] LABIA [id number] [place], [place] [address]Ovjvdycuv (Bld) [#/Vol]418 10*3/bLFfkj264-495FanhpmdldSelect Medical Specialty [facility] on above:Order Comment: Specimen Type: BLOOD SPECIMENOrdering Facility: [facility] Address:[address] [place], [place] [address]Performed By: #### 11829-6 ####[facility] LABCLIA [id number] [place], [place] [address]VCI (Bld) [#/Vol]3.43 10*6/uLLow3.90-5.20[facility] on above:Order Comment: Specimen Type: BLOOD SPECIMENOrdering Facility: [facility] Address:[address] [place], [place] [address]Performed By: #### 01195-4 ####[facility] LABIA [id number] [place], [place] [address]PBR (Bld) [#/Vol]8.82 10*3/uL Normal3.70-11.00[facility] on above:Order Comment: Specimen Type: BLOOD SPECIMENOrdering Facility: [facility] Address:[address] [place], [place] [address]Performed By: #### 58109-5 ####[facility] LABCLIA [id number] [place], [place] [address]FFSBQDbm 16-12-8077GKDHJTOqrwkgYclonvjob Clinic [facility] CNPNon 87-43-2651ILUAYpjmqoCdvoavzid Clinic ClevelandComprehensive metabolic 2000 panelon 41-53-5424Cdvcxbs [Mass/Vol]3.4 g/dLLow3.9-4.9C[facility] on above:Order Comment: Specimen Type: BLOOD SPECIMENOrdering Facility: [facility] Address:[address] [place], [place] [address]Performed By: #### 20141-1 ####[facility] LABCLIA [id number] [place], [place] [address]JEV [Catalytic activity/Vol]94 U/XZymtag17-207GniepcdosSelect Medical [facility]ty [facility] on above:Order Comment: Specimen Type: BLOOD SPECIMENOrdering Facility: [facility] Address:[address] [place], [place] [address]Performed By: #### 34799-4 ####[facility] LABCLIA [id number] [facility] JOSEARIZ[facility] [place] [address]UKT [Catalytic activity/Vol]16 U/LNormal7-38[facility] on above:Order Comment: Specimen Type: BLOOD SPECIMENOrdering Facility: [facility] Address:[address] [place], [place] [address]Performed By: #### 75023-4 ####[facility] LABCLIA [id number] [place], [place] [address]Dmglr gap [Moles/Vol]17 mmol/LHigh8-15[facility] on above:Order Comment: Specimen Type: BLOOD SPECIMENOrdering Facility: [facility] Address:[address] [place], [place] [address]Performed By: #### 61600- 8 ####[facility] LABCLIA [id number] [facility] [place], [place] [address]EGQ [Catalytic activity/Vol]10 U/QFvj87-14KoyiqatmpSelect Medical Specialty [facility] on above:Order Comment: Specimen Type: BLOOD SPECIMENOrdering Facility: [facility] Address:[address] [place], [place] [address]Performed By: #### 11842-2 ####[facility] LABCLIA [id number] [place], [place] [address]Gazwvvlao [Mass/Vol]mg/dLLow0.2-1.3C[facility] on above:Order Comment: Specimen Type: BLOOD SPECIMENOrdering Facility: [facility] Address:[address] [place], [place] [address]Performed By: #### 92995- 8 ####[facility] LABCLIA [id number] [facility] [place], [place] [address]Tgafsjk [Mass/Vol]9.7 mg/dLNormal8.5-10.2C[facility] on above:Order Comment: Specimen Type: BLOOD SPECIMENOrdering Facility: [facility] Address:[address] [place], [place] [address]Performed By: #### 65780-1 ####[facility] LABCLIA [id number] [place], [place] [address]Fxboqfrz [Moles/Vol]103 mmol/L Ybovde76-866VkkkzbfuhSelect Medical Specialty [facility] on above:Order Comment: Specimen Type: BLOOD SPECIMENOrdering Facility: [facility] Address:[address] [place], [place] [address]Performed By: #### 61606-9 ####[facility] LABCLIA [id number] [place] [address] CO2 [Moles/Vol]22 mmol/UIzvjzj72-96GpwhxvrunSelect Medical Specialty [facility] on above: Order Comment: Specimen Type: BLOOD SPECIMENOrdering Facility: [facility] Address:[address] [place], [place] [address]Performed By: #### 69130- 8 ####[facility] LABCLIA [id number] [facility] [place], [place] [address]Qjevjdyjiw [Mass/Vol]0.46 mg/dLLow0.58-0.96[facility] on above:Order Comment: Specimen Type: BLOOD SPECIMENOrdering Facility: [facility] Address:[address] [place], [place] [address]Performed By: #### 48085-6 ####[facility] LABCLIA [id number] [place], [place] [address]fIHRyw SerPlBld CKD-EPI 6943279 mL/min/1.73m???Normal>=60[facility] on above:Order Comment: Specimen Type: BLOOD SPECIMENOrdering Facility: [facility] Address:[address] [id number] Comment: Estimated Glomerular Filtration Rate (eGFR) is calculated using the 2020 CKD-EPI creatinine equation. This equation utilizes serum creatinine, sex, and age as parameters. The creatinine assay has traceable calibration to isotope dilution- mass spectrometry. Refer to KDIGO guidelines for clinical interpretation. In patients with unstable renal function, e.g. those with acute kidney injury, the eGFR may not accurately reflect actual GFR.Performed By: #### 04935-7 ####[facility] LABCLIA [id number] [place], [place] [address]Ekleqay [Mass/Vol]174 mg/eWMzfq17-12FzpciirvgSelect Medical Specialty [facility] on above:Order Comment: Specimen Type: BLOOD SPECIMENOrdering Facility: [facility] Address:[address] [place], [place] [address]Result Comment: The [place] Diabetes [employer] (ADA) provides guidance for cutoff values for fasting glucose and random glucose. The ADA defines fasting as no caloric intake for at least 8 hours. Fasting plasma glucose results between 100 to 125 mg/dL indicate increased risk for diabetes (prediab etes).Fasting plasma glucose results greater than or equal to 126 mg/dL meet the criteria for diagnosis of diabetes. In the absence of unequivocal hyperglycemia, results should be confirmed by repeattesting. In a patient with classic symptoms of hyperglycemia or hyperglycemic crisis, random plasmaglucose results greater than or equal to 200 mg/dL meet the criteria for diagnosis of diabetes.Reference: Standards of Medical Care in Diabetes 2016, [place] [employer]. Diabetes Care. 2016.39(Suppl 1).Performed By: #### [id number] ####[facility] LABCLIA [id number] [place], [place] [id number] [Moles/Vol]4.3 mmol/LNormal3.7-5.1CWay[facility] on above:Order Comment: Specimen Type: BLOOD SPECIMENOrdering Facility: [facility] Address:[address] [id number] By: #### [id number] ####[facility] LABCLIA [id number] [place], [place] [address]Fgxaidd [Mass/Vol]6.7 g/dLNormal6.3-8.0[facility] on above:Order Comment: Specimen Type: BLOOD SPECIMENOrdering Facility: [facility] Address:[address] [address] [place], [place] [address]Performed By: #### 18486- 8 ####[facility] LABCLIA [id number] [place], [place] [address]Sasqqc [Moles/Vol]142 mmol/JGnsega093-922NnumalxprSelect [facility] on above:Order Comment: Specimen Type: BLOOD SPECIMENOrdering Facility: [facility] Address:[address] [place], [place] [address]Performed By: #### 96637-4 ####[facility] LABCLIA [id number] [place], [place] [address]Lcbh nitrogen [Mass/Vol]20 mg/dLNormal7-21[facility] on above:Order Comment: Specimen Type: BLOOD SPECIMENOrdering Facility: [facility] Address:[address] [place], [place] [address]Performed By: #### 85059-2 ####[facility] LABCLIA [id number] [place], [place] [address]RWVUfg 95-92-9112YKURCypoedImdtrrwvv Clinic ClevelandCBC W Auto Differential panel (Bld)on 56-24-9440Qbxiqwpvl (Bld) [#/Vol]0.02 10*3/uL Normal<0.11C[facility] on above:Order Comment: Specimen Type: BLOOD SPECIMENOrdering Facility: [facility] Address:[address] [place], [place] [address]Performed By: #### 74289-3 ####[facility] LABCLIA [id number] [place], [place] [address]LVOKJIYYMMARTINS [facility]Y [facility] LABCLIA [id number] [address]Basophils/100 WBC (Bld)2.0 % [facility] on above:Order Comment: Specimen Type: BLOOD SPECIMENOrdering Facility: [facility] Address:[address] [place], [place] [address]Performed By: #### 52294-0 ####[facility] LABCLIA [id number] [address] LABCLIA [id number] [place] [address] [place] AMERICADifferential cell count method Nom (Bld)Manual [facility] on above:Order Comment: Specimen Type: BLOOD SPECIMENOrdering Facility: [facility] Address:[address] [place], [place] [address]Performed By: #### 42285-8 ####[facility] LABCLIA [id number] [address] LABCLIA [id number] [place] [address] [place] AMERICAEosinophils (Bld) [#/Vol]0.03 10*3/uLNormal<0.46 [facility] on above:Order Comment: Specimen Type: BLOOD SPECIMENOrdering Facility: [facility] Address:[address] [place], [place] [address]Performed By: #### 99331-2 ####[facility] LABCLIA [id number] [address] LABCLIA [id number] [place] [address] [place] AMERICAEosinophils/100 WBC (Bld)3.0 %[facility] on above:Order Comment: Specimen Type: BLOOD SPECIMENOrdering Facility: [facility] Address:[address] [place], [place] [address]Performed By: #### 81527-1 ####[facility] LABCLIA [id number] [place], [place] [address]SXPQQNFWQMARTINS FERRY [facility]OSPITAL LABCLIA [id number] [address] [address] [place] AMERICAErythrocyte distribution width (RBC) [Ratio]14.8 %Afgetr75.5-15.0 [facility] on above:Order Comment: Specimen Type: BLOOD SPECIMENOrdering Facility: [facility] Address:[address] [place], [place] [address]Performed By: #### 26330-6 ####[facility] LABCLIA [id number] [address] LABCLIA [id number] [address], [facility] [place] OF AMERICAHematocrit (Bld) [Volume fraction]30.5 %Low36.0-46.0 [facility] on above:Order Comment: Specimen Type: BLOOD SPECIMENOrdering Facility: [facility] Address:[address] [place], [place] [address]Performed By: #### 20600-7 ####[facility] LABIA [id number] [place] [id number] LABCLIA [id number] [address] [place] [address] [place] AMERICAHemoglobin (Bld) [Mass/Vol]9.6 g/dLLow11.5-15.5C[facility] on above:Order Comment: Specimen Type: BLOOD SPECIMENOrdering Facility: [facility] Address:[address] [place], [place] [address]Performed By: #### 42046-6 ####[facility] LABCLIA [id number] [place] [id number] LABCLIA [id number] [address] [place] [address] [place] AMERICALymphocytes (Bld) [#/Vol]0.46 10*3/uLLow1.00-4.00 [facility] HospitalComment on above:Order Comment: Specimen Type: BLOOD SPECIMENOrdering Facility: [facility] Address:[address] [place], [place] [address]Performed By: #### 47931-8 ####[facility] LABCLIA [id number] [address] LABCLIA [id number] [place] [address] [place] AMERICALymphocytes/100 WBC (Bld)43.0 %NormalMemorial Health System Marietta Memorial HospitalComment on above:Order Comment: Specimen Type: BLOOD SPECIMENOrdering Facility: [facility] Address:[address] [place], [place] [address]Performed By: #### 77099-5 ####[facility] LABCLIA [id number] [address] LABCLIA [id number] [address] (RBC) [Entitic mass]29.4 kmEpsdic84.0-34.0[facility] Comment on above:Order Comment: Specimen Type: BLOOD SPECIMENOrdering Facility: [facility] Address:[address] [place] [address] Performed By: #### 08089-6 ####[facility] LABCLIA [id number] [address] LABCLIA [id number] [address] (RBC) [Mass/Vol]31.5 g/iJIqwpvu48.5-36.0[facility] Comment on above:Order Comment: Specimen Type: BLOOD SPECIMENOrdering Facility: [facility] Address:[address] [place] [address] Performed By: #### 68128-0 ####[facility] LABCLIA [id number] [address] LABCLIA [id number] [place] [address] [place] AMERICAMCV (RBC) [Entitic vol]93.3 gASbmtps00.0-100.0[facility] Comment on above:Order Comment: Specimen Type: BLOOD SPECIMENOrdering Facility: [facility] Address:[address] [place] [address] Performed By: #### 45626-5 ####[facility] LABCLIA [id number] [address] LABCLIA [id number] [place] [address] [place] AMERICAMonocytes (Bld) [#/Vol]0.23 10*3/uLNormal<0.87[facility] Comment on above:Order Comment: Specimen Type: BLOOD SPECIMENOrdering Facility: [facility] Address:[address] [place] [address] Performed By: #### 95655-7 ####[facility] LABCLIA [id number] [address] LABCLIA [id number] [place] [address] [place] AMERICAMonocytes/100 WBC (Bld)22.0 %NormalMemorial Health System Marietta Memorial HospitalComment on above:Order Comment: Specimen Type: BLOOD SPECIMENOrdering Facility: [facility] Address:[address] [place], [place] [address]Performed By: #### 82425-1 ####[facility] LABCLIA [id number] [address] LABCLIA [id number] [place] [address] [place] AMERICANeutrophils (Bld) [#/Vol]0.32 10*3/uLLow1.45-7.50[facility] on above: Order Comment: Specimen Type: BLOOD SPECIMENOrdering Facility: [facility] Address:[address] [place], [place] [address]Performed By: #### 31838- 8 ####[facility] LABCLIA [id number] [address] LABCLIA [id number] [place] [address] [place] AMERICANeutrophils/100 WBC (Bld)30.0 %NormalSelect Medical Specialty [facility] [place] on above:Order Comment: Specimen Type: BLOOD SPECIMENOrdering Facility: [facility] Address:[address] [place], [place] [address]Performed By: #### 95964-7 ####[facility] LABCLIA [id number] [address] LABCLIA [id number] [place] [address] [place] AMERICANucleated RBC (Bld) [#/Vol]10*3/uLNormal<0.01[facility] on above:Order Comment: Specimen Type: BLOOD SPECIMENOrdering Facility: [facility] Address:[address] [place], [place] [address]Performed By: #### 39601- 8 ####[facility] LABCLIA [id number] [address] LABCLIA [id number] [place] [address] [place] AMERICANucleated RBC/100 WBC (Bld) [Ratio]0.0 /100 WBCNormalCWayne HealthCare [facility] on above:Order Comment: Specimen Type: BLOOD SPECIMENOrdering Facility: [facility] Address:[address] [place], [place] [address]Performed By: #### 12594-2 ####[facility] LABCLIA [id number] [facility]85312SRKCMOKCOMARTINS FERRY [facility] LABCLIA [id number] [address] [place] [address] [place] AMERICAOvalocytes LM Ql (Bld)FewNormalClevelPsychiatric hospitalComment on above:Order Comment: Specimen Type: BLOOD SPECIMENOrdering Facility: [facility] Address:[address] [place], [place] [address]Performed By: #### 98583-5 ####[facility] LABCLIA [id number] [address] LABCLIA [id number] [address], [facility] [place] AMERICAPlatelet mean volume (Bld) [Entitic vol]10.2 fLNormal9.0-12.7ClevelPsychiatric hospitalCommclaren bay special care hospital on above:Order Comment: Specimen Type: BLOOD SPECIMENOrdering Facility: [facility] Address:[address] [place] [address] Performed By: #### 71433-6 ####[facility] LABCLIA [id number] [place] [id number] LABCLIA [id number] [address] [place] [address] [place] AMERICAPlatelets (Bld) [#/Vol]260 10*3/vYKwfuia721-560YuvmmgxgwMemorial Health System [facility] Comment on above:Order Comment: Specimen Type: BLOOD SPECIMENOrdering Facility: [facility] Address:[address] [place] [address] Performed By: #### 72308-3 ####[facility] LABCLIA [id number] [place] [id number] LABCLIA [id number] [address] [place] [address] [place] AMERICAPlatelets Estimate (Bld) [#/Vol]AdequateNormalCleveland Clinic De [facility] Comment on above:Order Comment: Specimen Type: BLOOD SPECIMENOrdering Facility: [facility] Address:[address] [place] [address] Performed By: #### 70423-3 ####[facility] LABCLIA [id number] [place] [id number] LABCLIA [id number] [place] [address] [place] [facility] AMERICARBC (Bld) [#/Vol]3.27 10*6/uLLow3.90-5.20[facility] Comment on above:Order Comment: Specimen Type: BLOOD SPECIMENOrdering Facility: [facility] Address:[address] [place] [address] Performed By: #### 79206-9 ####[facility] LABCLIA [id number] [address] LABCLIA [id number] [place] [address] [place] AMERICARED CELL MORPHReviewed: see results of individual morphologiesMissouri Southern Healthcareal [facility] on above:Order Comment: Specimen Type: BLOOD SPECIMENOrdering Facility: [facility] Address:[address] [place], [place] [address]Performed By: #### 67138-7 ####[facility] LABCLIA [id number] [address] LABCLIA [id number] [place] [address] [place] AMERICAWBC (Bld) [#/Vol]1.06 10*3/uLLow3.70-11.00[facility] on above:Order Comment: Specimen Type: BLOOD SPECIMENOrdering Facility: [facility] Address:[address] [place], [place] [address]Result Comment: Results checked and verified.No clot detected.Performed By: #### 90337-3 ####[facility] LABCLIA [id number] [facility] CENTERLUZ ELLIOTTARIZONA SPINE AND JOINT HOSPITALLLUVIA, [place] [address]UYFVGXJKKMARTINS FERRY [facility] LABCLIA [id number] [facility] [address]02LXIWRVFLN, [place] [address] [place] AMERICACNOVSPon 75-70-7195AUTGETEaqcwkTsxzhfpag Clinic ClevelandCNPNon 61-64-3977GDNMTusvilYobscrfbc Clinic ClevelandComprehensive metabolic 2000 panelon 95-96-6514Dryumkj [Mass/Vol]3.1 g/dLLow3.9-4.9CMercy Health [facility] Comment on above:Order Comment: Specimen Type: BLOOD SPECIMENOrdering Facility: [facility] Address:[address] [place] [address] Performed By: #### 20431-6 ####[facility] LABCLIA [id number] [place], [place] [address]HDB [Catalytic activity/Vol]114 U/LMiqfwt49-734BepghkeppMemorial Health System Marietta Memorial HospitalCommclaren bay special care hospital on above:Order Comment: Specimen Type: BLOOD SPECIMENOrdering Facility: [facility] Address:[address] [place], [place] [address]Performed By: #### 74868-2 ####[facility]JITPAOSEAS [facility] LABCLIA [id number] [place] [address]GIC [Catalytic activity/Vol]20 U/LNormal7-38[facility] Memorial HospitalComment on above:Order Comment: Specimen Type: BLOOD SPECIMENOrdering Facility: [facility] Address:[address] [place], [place] [address]Performed By: #### 64006-5 ####[facility] LABCLIA [id number] [facility] CENTERLUZ ELLIOTTARIZONA SPINE AND JOINT HOSPITALKASEYJACKSON, [place] [address]Goctc gap [Moles/Vol]14 mmol/LNormal8-15[facility] on above:Order Comment: Specimen Type: BLOOD SPECIMENOrdering Facility: [facility] Address:[address] [place], [place] [address]Performed By: #### 14514- 8 ####[facility]ALJITPAOSEAS [facility] LABCLIA [id number] [facility] [place], [place] [address]QTS [Catalytic activity/Vol]14 U/GGzvzbq91-73KdpdtkhuqSelect [facility] on above:Order Comment: Specimen Type: BLOOD SPECIMENOrdering Facility: [facility] Address:[address] [place], [place] [address]Performed By: #### 03619-8 ####[facility] LABCLIA [id number] [place], [place] [address]Jivgahqax [Mass/Vol]0.4 mg/dLNormal0.2-1.3CWay[facility] on above:Order Comment: Specimen Type: BLOOD SPECIMENOrdering Facility: [facility] Address:[address] [place], [place] [address]Performed By: #### 86047- 8 ####[facility] LABCLIA [id number] [facility] [place], [place] [address]Khztkpd [Mass/Vol]8.7 mg/dLNormal8.5-10.2C[facility] on above:Order Comment: Specimen Type: BLOOD SPECIMENOrdering Facility: [facility] Address:[address] [place], [place] [address]Performed By: #### 45023-9 ####[facility] LABCLIA [id number] [place], [place] [address]Vvdmelln [Moles/Vol]97 mmol/L Vst75-118RensgzdbrSelect Medical Specialty Hospital [facility] on above:Order Comment: Specimen Type: BLOOD SPECIMENOrdering Facility: [facility] Address:[address] [place], [place] [address]Performed By: #### 21479-3 ####[facility] LABCLIA [id number] [place] [address] CO2 [Moles/Vol]26 mmol/AZakdhd13-99MwvutbureSelect Medical Specialty [facility] on above: Order Comment: Specimen Type: BLOOD SPECIMENOrdering Facility: [facility] Address:[facility] [place] [address]Dxefsbooy By: #### 68001- 8 ####[facility] LABCLIA [id number] [place], [place] [address]Dpifqzgjof [Mass/Vol]0.58 mg/dLNormal0.58-0.96[facility] on above:Order Comment: Specimen Type: BLOOD SPECIMENOrdering Facility: [facility] Address:[address] [place], [place] [address]Performed By: #### 73011-7 ####[facility] LABCLIA [id number] [place], [place] [address]hOORuk SerPlBld CKD-EPI 860934 mL/min/1.73m???Normal>=60[facility] on above:Order Comment: Specimen Type: BLOOD SPECIMENOrdering Facility: [facility] Address:[address] [place], [place] [address]Result Comment: Estimated Glomerular Filtration Rate (eGFR) is calculated using the 2020 CKD-EPI creatinine equation. This equation utilizes serum creatinine, sex, and age as parameters. The creatinine assay has traceable calibration to isotope dilution- mass spectrometry. Refer to KDIGO guidelines for clinical interpretation. In patients with unstable renal function, e.g. those with acute kidney injury, the eGFR may not accurately reflect actual GFR.Performed By: #### 10188-6 ####[facility] LABCLIA [id number] [place], [place] [address]Lsqbhoj [Mass/Vol]124 mg/bCVrsq04-36XrwbbzvdbSelect Medical Specialty [facility] on above:Order Comment: Specimen Type: BLOOD SPECIMENOrdering Facility: [facility] Address:[address] [place], [place] [address]Result Comment: The [place] Diabetes Association (ADA) provides guidance for cutoff values for fasting glucose and random glucose. The ADA defines fasting as no caloric intake for at least 8 hours. Fasting plasma glucose results between 100 to 125 mg/dL indicate increased risk for diabetes (prediab etes).Fasting plasma glucose results greater than or equal to 126 mg/dL meet the criteria for diagnosis of diabetes. In the absence of unequivocal hyperglycemia, results should be confirmed by repeattesting. In a patient with classic symptoms of hyperglycemia or hyperglycemic crisis, random plasmaglucose results greater than or equal to 200 mg/dL meet the criteria for diagnosis of diabetes.Reference: Standards of Medical Care in Diabetes 2016, [place] Diabetes Association. Diabetes Care. 2016.39(Suppl 1).Performed By: #### 81858-7 ####[facility] LABCLIA [id number] [place], [place] [address]Jtrthpjek [Moles/Vol]4.1 mmol/LNormal3.7-5.1CWay[facility] on above:Order Comment: Specimen Type: BLOOD SPECIMENOrdering Facility: [facility] Address:[address] [place], [place] [address]Performed By: #### 62576-0 ####[facility] LABCLIA [id number] [place], [place] [address]Inrrbta [Mass/Vol]6.2 g/dLLow6.3-8.0[facility] on above:Order Comment: Specimen Type: BLOOD SPECIMENOrdering Facility: [facility] Address:[address] [place], [place] [address]Performed By: #### 48671- 8 ####[facility] LABCLIA [id number] [place], [place] [address]Ryvepy [Moles/Vol]137 mmol/ELfkslr121-656BakckihumSelect Medical Specialty Hospital [facility] [place] on above:Order Comment: Specimen Type: BLOOD SPECIMENOrdering Facility: [facility] Address:[address] [place], [place] [address]Performed By: #### 12190-4 ####[facility] LABIA [id number] [place], [place] [address]Qvxg nitrogen [Mass/Vol]16 mg/dLNormal7-21[facility] on above:Order Comment: Specimen Type: BLOOD SPECIMENOrdering Facility: [facility] Address:[address] [place], [place] [address]Performed By: #### 95700-6 ####[facility] LABCLIA [id number] [place], [place] [address]BGG W Auto Differential panel (Bld)on 90-24-1039Mcnilrefg (Bld) [#/Vol]10*3/uLNormal<0.11CWay[facility] on above:Order Comment: Specimen Type: BLOOD SPECIMENOrdering Facility: [facility] Address:[address] [place], [place] [address]Performed By: #### 36001- 8 ####[facility] LABCLIA [id number] [place], [place] [address]Ecpxjuoxy/100 WBC (Bld)0.1 %NormalSelect Medical Specialty Hospital [facility] [place] on above:Order Comment: Specimen Type: BLOOD SPECIMENOrdering Facility: [facility] Address:[address] [place], [place] [address]Performed By: #### 40850-1 ####[facility] LABCLIA [id number] [place], [place] [address]Uzvzqomasqsa cell count method Nom (Bld)AutoNormalCWayne HealthCare [facility] on above:Order Comment: Specimen Type: BLOOD SPECIMENOrdering Facility: [facility] Address:[address] [place], [place] [address]Performed By: #### 83849-7 ####[facility] LABCLIA [id number] [place], [place] [address]Badynwurqhz (Bld) [#/Vol]10*3/uLNormal<0.46[facility] on above:Order Comment: Specimen Type: BLOOD SPECIMENOrdering Facility: [facility] Address:[address] [place], [place] [address]Performed By: #### 74681-9 ####[facility] LABIA [id number] [place], [place] [address]Qgriyhqitwy/100 WBC (Bld)0.0 %NormalSelect Medical Specialty Hospital [facility] [place] on above:Order Comment: Specimen Type: BLOOD SPECIMENOrdering Facility: [facility] Address:[address] [place], [place] [address]Performed By: #### 82718-3 ####[facility] LABCLIA [id number] [place], [place] [address]Puilmqytsqw distribution width (RBC) [Ratio]14.8 %Normal 11.5-15.0[facility] on above:Order Comment: Specimen Type: BLOOD SPECIMENOrdering Facility: [facility] Address:[address] [place], [place] [address]Performed By: #### 75000-1 ####[facility] LABCLIA [id number] [place] [address] Hematocrit (Bld) [Volume fraction]33.0 %Low36.0-46.0[facility] Comment on above:Order Comment: Specimen Type: BLOOD SPECIMENOrdering Facility: [facility] Address:[address] [place] [address] Performed By: #### 72161-9 ####[facility] LABCLIA [id number] [place], [place] [address]Sabwhxebro (Bld) [Mass/Vol]10.0 g/dLLow11.5-15.5CWay[facility] on above:Order Comment: Specimen Type: BLOOD SPECIMENOrdering Facility: [facility] Address:[address] [place], [place] [address]Performed By: #### 99068-5 ####[facility] LABIA [id number] [place], [place] [address]Mqnkdzkb granulocytes (Bld) [#/Vol]0.15 10*3/uLHigh<0.10 [facility] on above:Order Comment: Specimen Type: BLOOD SPECIMENOrdering Facility: [facility] Address:[address] [place], [place] [address]Performed By: #### 68522-1 ####[facility] LABCLIA [id number] [place], [place] [address]Wigbozge granulocytes/100 WBC (Bld)1.1 %NormalSelect Medical Specialty Hospital [facility] on above: Order Comment: Specimen Type: BLOOD SPECIMENOrdering Facility: [facility] Address:[address] [place], [place] [address]Performed By: #### 02049- 8 ####[facility] LABCLIA [id number] [place], [place] [address]Gfxkiesuwze (Bld) [#/Vol]0.53 10*3/uLLow1.00-4.00 [facility] on above:Order Comment: Specimen Type: BLOOD SPECIMENOrdering Facility: [facility] Address:[address] [place], [place] [address]Performed By: #### 64489-8 ####[facility] LABIA [id number] [place], [place] [address]Fdadcoykvzp/100 WBC (Bld)3.7 %NormalSelect Medical Specialty Hospital [facility] on above:Order Comment: Specimen Type: BLOOD SPECIMENOrdering Facility: [facility] Address:[address] [place], [place] [address]Performed By: #### 13865-9 ####[facility] LABCLIA [id number] [place], [place] [address]JVC (RBC) [Entitic mass]29.2 uxLcgezd71.0-34.0[facility] on above:Order Comment: Specimen Type: BLOOD SPECIMENOrdering Facility: [facility] Address:[address] [place], [place] [address]Performed By: #### 84696-4 ####[facility] LABIA [id number] [place], [place] [address]UPMO (RBC) [Mass/Vol]30.3 g/dLLow30.5-36.0[facility] on above:Order Comment: Specimen Type: BLOOD SPECIMENOrdering Facility: [facility] Address:[address] [place], [place] [address]Performed By: #### 74125- 8 ####[facility] LABCLIA [id number] [place], [place] [address]RTO (RBC) [Entitic vol]96.2 zMJwkaqs54.0-100.0[facility] on above:Order Comment: Specimen Type: BLOOD SPECIMENOrdering Facility: [facility] Address:[address] [place], [place] [address]Performed By: #### 21808-2 ####[facility] LABCLIA [id number] [place], [place] [address]Liwisfxck (Bld) [#/Vol]0.31 10*3/uLNormal<0.87[facility] on above:Order Comment: Specimen Type: BLOOD SPECIMENOrdering Facility: [facility] Address:[address] [place], [place] [address]Performed By: #### 99853- 8 ####[facility] LABCLIA [id number] [place], [place] [address]Qhxobdazm/100 WBC (Bld)2.2 %NormalSelect Medical Specialty [facility] [place] on above:Order Comment: Specimen Type: BLOOD SPECIMENOrdering Facility: [facility] Address:[address] [place], [place] [address]Performed By: #### 94122-9 ####[facility] LABCLIA [id number] [place], [place] [address]Ysxhmfurmjo (Bld) [#/Vol]13.13 10*3/uLHigh1.45-7.50[facility] on above:Order Comment: Specimen Type: BLOOD SPECIMENOrdering Facility: [facility] Address:[address] [place], [place] [address]Performed By: #### 34283-9 ####[facility] LABCLIA [id number] [place], [place] [address]Cezdzbvpdpw/100 WBC (Bld)92.9 %NormalSelect Medical Specialty [facility] [place] on above:Order Comment: Specimen Type: BLOOD SPECIMENOrdering Facility: [facility] Address:[address] [place], [place] [address]Performed By: #### 57740-7 ####[facility] LABCLIA [id number] [place], [place] [address]Icmigxpsu RBC (Bld) [#/Vol] 10*3/uLNormal<0.01[facility] on above:Order Comment: Specimen Type: BLOOD SPECIMENOrdering Facility: [facility] Address:[address] [place], [place] [address]Performed By: #### 82747-8 ####[facility] LABIA [id number] [place], [place] [address]Dckfduwwf RBC/100 WBC (Bld) [Ratio]0.0 /100 WBCNormal [facility] on above:Order Comment: Specimen Type: BLOOD SPECIMENOrdering Facility: [facility] Address:[address] [place], [place] [address]Performed By: #### 95610-0 ####[facility] LABIA [id number] [place], [place] [address]Inrpminq mean volume (Bld) [Entitic vol]9.5 fLNormal9.0-12.7C[facility] on above:Order Comment: Specimen Type: BLOOD SPECIMENOrdering Facility: [facility] Address:[address] [place] [address] Performed By: #### 73451-0 ####[facility] LABIA [id number] [place], [place] [address]Isnnhcayw (Bld) [#/Vol]490 10*3/dWHpoq182-698NrcopagipSelect Medical Specialty [facility] [place] on above:Order Comment: Specimen Type: BLOOD SPECIMENOrdering Facility: [facility] Address:[address] [place], [place] [address]Performed By: #### 47776-4 ####[facility] LABCLIA [id number] [facility] [place], [place] [address]ZGP (Bld) [#/Vol]3.43 10*6/uLLow3.90-5.20[facility] on above:Order Comment: Specimen Type: BLOOD SPECIMENOrdering Facility: [facility] Address:[address] [place], [place] [address]Performed By: #### 42864-9 ####[facility] LABCLIA [id number] [place], [place] [address]KRY (Bld) [#/Vol]14.14 10*3/uL High3.70-11.00[facility] on above:Order Comment: Specimen Type: BLOOD SPECIMENOrdering Facility: [facility] Address:[address] [place], [place] [address]Performed By: #### 03258-5 ####[facility] LABIA [id number] [place] [address] CNOVon 08-85-4121GOKCXnajepHoatkgica Clinic ClevelandCNOVSPon 09-50-6642USQPIV NormalMemorial Health System Marietta Memorial HospitalComprehensive metabolic 2000 panelon 04-18-2025 Albumin [Mass/Vol]3.5 g/dLLow3.9-4.9C[facility] on above: Order Comment: Specimen Type: BLOOD SPECIMENOrdering Facility: [facility] Address:[address] [place], [place] [address]Performed By: #### 02949- 8 ####[facility] LABCLIA [id number] [place], [place] [address]ZZO [Catalytic activity/Vol]178 U/FOepr72-127BzlzhjqsmSelect Medical [facility]ty [facility] [place] on above:Order Comment: Specimen Type: BLOOD SPECIMENOrdering Facility: [facility] Address:[address] [place], [place] [address]Performed By: #### 37325-0 ####[facility] LABCLIA [id number] [facility] [place] [address]JDJ [Catalytic activity/Vol]24 U/LNormal7-38[facility] on above:Order Comment: Specimen Type: BLOOD SPECIMENOrdering Facility: [facility] Address:[address] [place], [place] [address]Performed By: #### 55179- 8 ####[facility] LABCLIA [id number] [place], [place] [address]Oexii gap [Moles/Vol]17 mmol/LHigh8-15[facility] on above:Order Comment: Specimen Type: BLOOD SPECIMENOrdering Facility: [facility] Address:[address] [place], [place] [address]Performed By: #### 48365-0 ####[facility] LABCLIA [id number] [facility] [address]AIL [Catalytic activity/Vol]13 U/OKsprbp94-13LajazktzaSelect [facility]ty [facility] on above:Order Comment: Specimen Type: BLOOD SPECIMENOrdering Facility: [facility] Address:[address] [place], [place] [address]Performed By: #### 58594-6 ####[facility] LABCLIA [id number] [facility] [place] [address] Bilirubin [Mass/Vol]0.3 mg/dLNormal0.2-1.3C[facility] on above:Order Comment: Specimen Type: BLOOD SPECIMENOrdering Facility: [facility] Address:[address] [place], [place] [address]Performed By: #### 81730-1 ####[facility] LABCLIA [id number] [place], [place] [address]Yygftrr [Mass/Vol]9.9 mg/dLNormal8.5-10.2C[facility] on above:Order Comment: Specimen Type: BLOOD SPECIMENOrdering Facility: [facility] Address:[address] [place], [place] [address]Performed By: #### 21985-9 ####[facility] LABCLIA [id number] [place], [place] [address]Jbrnidwh [Moles/Vol]100 mmol/UQohpeb35-707CowqxcwgfSelect Medical [facility]ty [facility] on above: Order Comment: Specimen Type: BLOOD SPECIMENOrdering Facility: [facility] Address:[address] [place], [place] [address]Performed By: #### 75478- 8 ####[facility] LABCLIA [id number] [place], [place] [address]QQ6 [Moles/Vol]24 mmol/VGsefxj18-08LtsyaxhecSelect [facility]ty [facility] on above:Order Comment: Specimen Type: BLOOD SPECIMENOrdering Facility: [facility] Address:[address] [place], [place] [address]Performed By: #### 30574-0 ####[facility] LABCLIA [id number] [place], [place] [address]Rvqpohfncm [Mass/Vol]0.47 mg/dL Low0.58-0.96[facility] on above:Order Comment: Specimen Type: BLOOD SPECIMENOrdering Facility: [facility] Address:[address] [place], [place] [address]Performed By: #### 75399-4 ####[facility] LABCLIA [id number] [place] [address] eGFRcr SerPlBld CKD-EPI [id number] mL/min/1.73m???Normal>=60[facility] on above:Order Comment: Specimen Type: BLOOD SPECIMENOrdering Facility: [facility] Address:[address], [place], [place] [address]Yvrgea Comment: Estimated Glomerular Filtration Rate (eGFR) is calculated using the 2020 CKD-EPI creatinine equation. This equation utilizes serum creatinine, sex, and age as parameters. The creatinine assay has traceable calibration to isotope dilution-mass spectrometry. Refer to KDIGO guidelines for clinical interpretation. In patients with unstable renal function, e.g. those with acute kidney injury, the eGFR may not accurately reflect actual GFR. Performed By: #### 54340-1 ####[facility] LABCLIA [id number] [place], [place] [address]Ufomdsr [Mass/Vol]148 mg/dLHigh 74-99[facility] on above:Order Comment: Specimen Type: BLOOD SPECIMENOrdering Facility: [facility] Address:[address] [place], [place] [address]Result Comment: The [place] Diabetes [employer] (ADA) provides guidance for cutoff values for fasting glucose and random glucose. The ADA defines fasting as no caloric intake for at least 8 hours. Fasting plasma glucose results between 100 to 125 mg/dL indicate increased risk for diabetes (prediabetes).Fasting plasma glucose results greater than or equal to 126 mg/dL meet the criteria for diagnosis of diabetes. In the absence of unequivocal hyperglycemia, results should be confirmed by repeattesting. In a patient with classic symptoms of hyperglycemia or hyperglycemic crisis, random plasmaglucose results greater than or equal to 200 mg/dL meet the criteria for diagnosis of diabetes.Reference: Standards of Medical Care in Diabetes 2016, [place] [employer]. Diabetes Care. 2016.39(Suppl 1).Performed By: #### 49924-4 ####[facility] LABCLIA [id number] [place], [place] [address]Qosainvlq [Moles/Vol]3.9 mmol/LNormal3.7-5.1C[facility] on above:Order Comment: Specimen Type: BLOOD SPECIMENOrdering Facility: [facility] Address:[address] [place] [address]Ctlcpthbr By: #### 32482-4 ####[facility] LABCLIA [id number] [place], [place] [address]Hleukeh [Mass/Vol]7.3 g/dLNormal6.3-8.0[facility] on above:Order Comment: Specimen Type: BLOOD SPECIMENOrdering Facility: [facility] Address:[address] [place], [place] [address]Performed By: #### 60136- 8 ####[facility] LABCLIA [id number] [place], [place] [address]Fsepuw [Moles/Vol]141 mmol/XKpsafi842-778OtoctdcwaSelect Medical [facility]ty [facility] on above:Order Comment: Specimen Type: BLOOD SPECIMENOrdering Facility: [facility] Address:[address] [place], [place] [address]Performed By: #### 44233-8 ####[facility] LABCLIA [id number] [place], [place] [address]Ehma nitrogen [Mass/Vol]21 mg/dLNormal7-21[facility] on above:Order Comment: Specimen Type: BLOOD SPECIMENOrdering Facility: [facility] Address:[address] [place], [place] [address]Performed By: #### 48311-2 ####[facility] LABCLIA [id number] [place], [place] [address]YSFWBTAXMC - BASELINE AND POST DILATORon 04-18-2025 SPIROMETRY - BASELINE AND POST DILATORNormalCMercy Health Perrysburg HospitalCNCNPATED on 45-69-3673QGSPTXZMPRoefnxWywbrqogh Clinic ClevelandCNPNon 80-89-9261YUIZ NormalMemorial Health System Marietta Memorial HospitalCB W Auto Differential panel (Bld)on 04-12-2025 Basophils (Bld) [#/Vol]0.04 10*3/uLNormal<0.11C[facility] on above:Order Comment: Specimen Type: BLOOD SPECIMENOrdering Facility: [facility] Address:[address] [place] [address] Performed By: #### 52731-8 ####[facility] LABCLIA [id number] [place], [place] [address]Vaxysxchh/100 WBC (Bld)0.5 % NormalSelect Medical Specialty [facility] [place] on above:Order Comment: Specimen Type: BLOOD SPECIMENOrdering Facility: [facility] Address:[address] [place], [place] [address]Performed By: #### 77625-6 ####[facility] LABCLIA [id number] [place] [address] Differential cell count method Nom (Bld)AutoNormalClevelPsychiatric hospital Comment on above:Order Comment: Specimen Type: BLOOD SPECIMENOrdering Facility: [facility] Address:[address] [place] [address] Performed By: #### 40701-5 ####[facility] LABIA [id number] [place], [place] [address]Famzbceoeue (Bld) [#/Vol]0.23 10*3/uLNormal<0.46[facility] on above:Order Comment: Specimen Type: BLOOD SPECIMENOrdering Facility: [facility] Address:[address] [place], [place] [address]Performed By: #### 92705-5 ####[facility] LABCLIA [id number] [place], [place] [address]Zwnbgduxzsv/100 WBC (Bld)2.7 %NormalSelect Medical Special[facility] [place] on above:Order Comment: Specimen Type: BLOOD SPECIMENOrdering Facility: [facility] Address:[address] [place], [place] [address]Performed By: #### 87288-8 ####[facility] LABIA [id number] [place], [place] [address]Eklolcpnakj distribution width (RBC) [Ratio]14.6 %Smwfpa34.5-15.0[facility] on above: Order Comment: Specimen Type: BLOOD SPECIMENOrdering Facility: [facility] Address:[address] [place], [place] [address]Performed By: #### 19344- 8 ####[facility] LABCLIA [id number] [place], [place] [address]Tkffutpobs (Bld) [Volume fraction]31.7 %Low36.0-46.0 [facility] on above:Order Comment: Specimen Type: BLOOD SPECIMENOrdering Facility: [facility] Address:[address] [place], [place] [address]Performed By: #### 27027-6 ####[facility] LABCLIA [id number] [place], [place] [address]Pykihmkypv (Bld) [Mass/Vol]9.7 g/dLLow11.5-15.5C[facility] on above:Order Comment: Specimen Type: BLOOD SPECIMENOrdering Facility: [facility] Address:[address] [place], [place] [address]Performed By: #### 47999- 8 ####[facility] LABCLIA [id number] [place], [place] [address]Teeazggt granulocytes (Bld) [#/Vol]0.03 10*3/uLNormal <0.10[facility] on above:Order Comment: Specimen Type: BLOOD SPECIMENOrdering Facility: [facility] Address:[address] [place], [place] [address]Performed By: #### 08737-4 ####[facility] LABCLIA [id number] [place], [place] [address]Gmmlrvqm granulocytes/100 WBC (Bld)0.4 %NormalSelect Medical Special[facility] on above: Order Comment: Specimen Type: BLOOD SPECIMENOrdering Facility: [facility] Address:[address] [place], [place] [address]Performed By: #### 75633- 8 ####[facility] LABCLIA [id number] [place], [place] [address]Rotumadwxex (Bld) [#/Vol]0.66 10*3/uLLow1.00-4.00 [facility] on above:Order Comment: Specimen Type: BLOOD SPECIMENOrdering Facility: [facility] Address:[address] [place], [place] [address]Performed By: #### 62961-0 ####[facility] LABCLIA [id number] [place], [place] [address]Znhlcgbmaey/100 WBC (Bld)7.8 %NormalSelect Medical Specialty [facility] [place] on above:Order Comment: Specimen Type: BLOOD SPECIMENOrdering Facility: [facility] Address:[address] [place], [place] [address]Performed By: #### 22990-9 ####[facility] LABCLIA [id number] [place], [place] [address]JJO (RBC) [Entitic mass]29.6 fkKfdudf47.0-34.0[facility] on above:Order Comment: Specimen Type: BLOOD SPECIMENOrdering Facility: [facility] Address:[address] [place], [place] [address]Performed By: #### 48338-5 ####[facility] LABCLIA [id number] [place], [place] [address]SWQI (RBC) [Mass/Vol]30.6 g/iJChhewp70.5-36.0[facility] on above: Order Comment: Specimen Type: BLOOD SPECIMENOrdering Facility: [facility] Address:[address] [place], [place] [address]Performed By: #### 90597- 8 ####[facility] LABCLIA [id number] [place], [place] [address]AQA (RBC) [Entitic vol]96.6 oGIvbdur28.0-100.0[facility] on above:Order Comment: Specimen Type: BLOOD SPECIMENOrdering Facility: [facility] Address:[address] [place], [place] [address]Performed By: #### 21533-8 ####[facility] LABCLIA [id number] [place], [place] [address]Xwwzgysjj (Bld) [#/Vol]0.71 10*3/uLNormal<0.87[facility] on above:Order Comment: Specimen Type: BLOOD SPECIMENOrdering Facility: [facility] Address:[address] [place], [place] [address]Performed By: #### 17398- 8 ####[facility] LABCLIA [id number] [place], [place] [address]Sgxsjprrd/100 WBC (Bld)8.4 %NormalSelect Medical Specialty [facility] [place] on above:Order Comment: Specimen Type: BLOOD SPECIMENOrdering Facility: [facility] Address:[address] [place], [place] [address]Performed By: #### 54984-1 ####[facility] LABCLIA [id number] [place], [place] [address]Vbgrquaocgr (Bld) [#/Vol]6.78 10*3/uLNormal1.45-7.50[facility] on above:Order Comment: Specimen Type: BLOOD SPECIMENOrdering Facility: [facility] Address:[address] [place], [place] [address]Performed By: #### 10816-1 ####[facility] LABCLIA [id number] [place], [place] [address]Ucpwlwqlnvm/100 WBC (Bld)80.2 %NormalSelect Medical Specialty [facility] [place] on above:Order Comment: Specimen Type: BLOOD SPECIMENOrdering Facility: [facility] Address:[address] [place], [place] [address]Performed By: #### 44515-5 ####[facility] LABCLIA [id number] [place], [place] [address]Aaiwfhtfw RBC (Bld) [#/Vol] 10*3/uLNormal<0.01[facility] on above:Order Comment: Specimen Type: BLOOD SPECIMENOrdering Facility: [facility] Address:[address] [place], [place] [address]Performed By: #### 58827-9 ####[facility] LABCLIA [id number] [place], [place] [address]Hyaporibm RBC/100 WBC (Bld) [Ratio]0.0 /100 WBCNormal [facility] on above:Order Comment: Specimen Type: BLOOD SPECIMENOrdering Facility: [facility] Address:[address] [place], [place] [address]Performed By: #### 91787-2 ####[facility] LABCLIA [id number] [place], [place] [address]Ivhzecdl mean volume (Bld) [Entitic vol]9.1 fLNormal9.0-12.7C[facility] on above:Order Comment: Specimen Type: BLOOD SPECIMENOrdering Facility: [facility] Address:[address] [place] [address] Performed By: #### 14172-7 ####[facility] LABCLIA [id number] [place], [place] [address]Sixsletbb (Bld) [#/Vol]392 10*3/oUNeptod773-031AijwtgqkjSelect [facility] on above:Order Comment: Specimen Type: BLOOD SPECIMENOrdering Facility: [facility] Address:[address] [place], [place] [address]Performed By: #### 31092-8 ####[facility] LABCLIA [id number] [place], [place] [address]EBD (Bld) [#/Vol]3.28 10*6/uLLow3.90-5.20[facility] on above:Order Comment: Specimen Type: BLOOD SPECIMENOrdering Facility: [facility] Address:[address] [place], [place] [address]Performed By: #### 59479-8 ####[facility] LABCLIA [id number] [place], [place] [address]RCV (Bld) [#/Vol]8.45 10*3/uL Normal3.70-11.00[facility] on above:Order Comment: Specimen Type: BLOOD SPECIMENOrdering Facility: [facility] Address:[address] [place], [place] [address]Performed By: #### 80227-1 ####[facility] LABCLIA [id number] [place], [place] [address]NVHMELeo 86-97-9848SUPYIYHydqzdScafvvrdu Clinic Cleveland CNPNon 49-34-9621YJYCFvlnksIairdnekd Clinic ClevelandComprehensive metabolic 2000 panelon 87-62-6533Ywcnebg [Mass/Vol]3.5 g/dLLow3.9-4.9C[facility] on above:Order Comment: Specimen Type: BLOOD SPECIMENOrdering Facility: [facility] Address:[address] [place], [place] [address]Performed By: #### 29653-0, 54950-6 ####[facility] LABCLIA [id number] [place], [place] [address]UGI [Catalytic activity/Vol]249 U/SUarx79-033SnwihcoilSelect Medical Specialty Hospital [facility] [place] on above:Order Comment: Specimen Type: BLOOD SPECIMENOrdering Facility: [facility] Address:[address] [place], [place] [address]Performed By: #### 04647- 9, 91989-2 ####[facility] LABCLIA [id number] [place], [place] [address]MWZ [Catalytic activity/Vol]44 U/LHigh7-38[facility] on above:Order Comment: Specimen Type: BLOOD SPECIMENOrdering Facility: [facility] Address:[address] [place], [place] [address]Performed By: #### 20423-1, 76617-1 ####[facility] LABCLIA [id number] [place], [place] [address]Togot gap [Moles/Vol]14 mmol/LNormal8-15[facility] on above: Order Comment: Specimen Type: BLOOD SPECIMENOrdering Facility: [facility] Address:[address] [place], [place] [address]Performed By: #### 92987- 9, 33715-9 ####[facility] LABCLIA [id number] [place], [place] [address]QGO [Catalytic activity/Vol]31 U/FJohjjs65-74 [facility] on above:Order Comment: Specimen Type: BLOOD SPECIMENOrdering Facility: [facility] Address:[address] [place], [place] [address]Performed By: #### 72236-9, 10946-7 ####[facility] LABCLIA [id number] [place] [address] Bilirubin [Mass/Vol]0.4 mg/dLNormal0.2-1.3C[facility] on above:Order Comment: Specimen Type: BLOOD SPECIMENOrdering Facility: [facility] Address:[address] [place], [place] [address]Performed By: #### 18588-4, 95404-7 ####[facility] LABCLIA [id number] [place], [place] [address]Jpbmhba [Mass/Vol]9.1 mg/dLNormal8.5-10.2 [facility] on above:Order Comment: Specimen Type: BLOOD SPECIMENOrdering Facility: [facility] Address:[address] [place], [place] [address]Performed By: #### 43179-1, 96374-5 ####[facility] LABCLIA [id number] [place], [place] [address]Gdqdswis [Moles/Vol]98 mmol/LKpntda34-781JztwozntxSelect [facility] [place] on above: Order Comment: Specimen Type: BLOOD SPECIMENOrdering Facility: [facility] Address:[address] [place] [id number] By: #### 09750- 9, 94740-4 ####[facility] LABCLIA [id number] [place], [place] [id number] [Moles/Vol]28 mmol/TJdrcoo90-15JwbeqtfquSelect [facility] [place] on above:Order Comment: Specimen Type: BLOOD SPECIMENOrdering Facility: [facility] Address:[address] [place] [id number] By: #### 76788-9, 16768-7 ####[facility] LABIA [id number] [place], [place] [address]Nqmucydztm [Mass/Vol] 0.55 mg/dLLow0.58-0.96[facility] on above:Order Comment: Specimen Type: BLOOD SPECIMENOrdering Facility: [facility] Address:[address] [place], [place] [id number] By: #### 98162-5, 47593-0 ####[facility] LABIA [id number] [place], [place] [address]nRFTah SerPlBld CKD-EPI [id number] mL/min/1.73m???Normal>=60 [facility] on above:Order Comment: Specimen Type: BLOOD SPECIMENOrdering Facility: [facility] Address:[address] [place] [id number] Comment: Estimated Glomerular Filtration Rate (eGFR) is calculated using the 2020 CKD-EPI creatinine equation. This equation utilizes serum creatinine, sex, and age as parameters. The creatinine assay has traceable calibration to isotope dilution-mass spectrometry. Refer to KDIGO guidelines for clinical interpretation. In patients with unstable renal function, e.g. those with acute kidney injury, the eGFR may not accurately reflect actual GFR.Performed By: #### 33683-5, 73739-5 ####[facility] LABCLIA [id number] [place], [place] [address]Mvhusbf [Mass/Vol]114 mg/hCPmdf27-31TeyiexbduSelect Medical [facility]ty [facility] [place] on above:Order Comment: Specimen Type: BLOOD SPECIMENOrdering Facility: [facility] Address:[address] [place], [place] [address]Result Comment: The [place] Diabetes Association (ADA) provides guidance for cutoff values for fast ing glucose and random glucose. The ADA defines fasting as no caloric intake for at least 8 hours. Fasting plasma glucose results between 100 to 125 mg/dL indicate increased risk for diabetes (prediabetes).Fasting plasma glucose results greater than or equal to 126 mg/dL meet the criteria for diagnosis of diabetes. In the absence of unequivocal hyperglycemia, results should be confirmed by repeattesting. In a patient with classic symptoms of hyperglycemia or hyperglycemic crisis, random plasmaglucose results greater than or equal to 200 mg/dL meet the criteria for diagnosis of diabetes.Reference: Standards of Medical Care in Diabetes 2016, [place] [employer]. Diabetes Care. 2016.39(Suppl 1).Performed By: #### 72868-7, 12531-8 ####[facility] LABCLIA [id number] [place] [address] Potassium [Moles/Vol]3.2 mmol/LLow3.7-5.1[facility] on above:Order Comment: Specimen Type: BLOOD SPECIMENOrdering Facility: [facility] Address:[address] [place], [place] [address]Performed By: #### 57939-4, 47474-6 ####[facility] LABCLIA [id number] [place], [place] [address]Frebzqd [Mass/Vol]6.9 g/dLNormal6.3-8.0 [facility] on above:Order Comment: Specimen Type: BLOOD SPECIMENOrdering Facility: [facility] Address:[address] [place], [place] [address]Performed By: #### 45106-2, 83335-7 ####[facility] LABCLIA [id number] [place], [place] [address]Sshnjq [Moles/Vol]140 mmol/NMlqael913-840QikvrreihSelect Medical Specialty Hospital [facility] [place] on above: Order Comment: Specimen Type: BLOOD SPECIMENOrdering Facility: [facility] Address:[address] [place], [place] [address]Performed By: #### 43206- 9, 06362-6 ####[facility] LABCLIA [id number] [place], [place] [address]Rwgf nitrogen [Mass/Vol]13 mg/dLNormal7-21[facility] on above:Order Comment: Specimen Type: BLOOD SPECIMENOrdering Facility: [facility] Address:[address] [place], [place] [address]Performed By: #### 86602-6, 27113-1 ####[facility] LABCLIA [id number] [place] [address] Magnesium SerPl-mCncon 88-25-9555Wppaiiroo [Mass/Vol]1.8 mg/dLNormal1.7-2.3 [facility] on above:Order Comment: Specimen Type: BLOOD SPECIMENOrdering Facility: [facility] Address:[address] [place], [place] [address]Performed By: #### 51979-3, 07860-0 ####[facility] LABCLIA [id number] [place], [place] [address]FEX SerPl-aCncon 84-87-5701BGF Qn4.110 m[IU]/LNormal0.270-4.200[facility] on above:Order Comment: Specimen Type: BLOOD SPECIMENOrdering Facility: [facility] Address:[address] [place], [place] [address]Performed By: #### 3016-3 ####[facility] LABCLIA [id number] [place] [address] [place] NM PET/CT SKULL-THIGH SUBQon 53-54-1723FY PET/CT SKULL-THIGH SUBQNormalCMemorial Health [facility] W Auto Differential panel (Bld)on 02-25-2981Ohqyjnhdx (Bld) [#/Vol]0.04 10*3/uLNormal<0.11C[facility] on above:Order Comment: Specimen Type: BLOOD SPECIMENOrdering Facility: [facility] Address:[address] [place], [place] [address]Performed By: #### 87272- 8 ####[facility] LABCLIA [id number] [place], [place] [address]Iugcgwgnq/100 WBC (Bld)0.5 %NormalSelect Medical Specialty Hospital [facility] [place] on above:Order Comment: Specimen Type: BLOOD SPECIMENOrdering Facility: [facility] Address:[address] [place], [place] [address]Performed By: #### 11674-3 ####[facility] LABCLIA [id number] [place], [place] [address]Qofhacygruar cell count method Nom (Bld)AutoNormalCWayne HealthCare [facility] on above:Order Comment: Specimen Type: BLOOD SPECIMENOrdering Facility: [facility] Address:[address] [place], [place] [address]Performed By: #### 67054-2 ####[facility] LABCLIA [id number] [place], [place] [address]Flnjyfiopdy (Bld) [#/Vol]0.24 10*3/uLNormal<0.46[facility] on above:Order Comment: Specimen Type: BLOOD SPECIMENOrdering Facility: [facility] Address:[address] [place], [place] [address]Performed By: #### 33961-6 ####[facility] LABCLIA [id number] [place], [place] [address]Scjmxmnppzq/100 WBC (Bld)2.9 %NormalSelect Medical Specialty Hospital [facility] [place] on above:Order Comment: Specimen Type: BLOOD SPECIMENOrdering Facility: [facility] Address:[address] [place], [place] [address]Performed By: #### 83538-8 ####[facility] LABIA [id number] [place], [place] [address]Jjvqaxlnyca distribution width (RBC) [Ratio]13.7 %Normal 11.5-15.0[facility] on above:Order Comment: Specimen Type: BLOOD SPECIMENOrdering Facility: [facility] Address:[address] [place], [place] [address]Performed By: #### 57396-0 ####[facility] LABIA [id number] [place] [address] Hematocrit (Bld) [Volume fraction]32.5 %Low36.0-46.0[facility] Comment on above:Order Comment: Specimen Type: BLOOD SPECIMENOrdering Facility: [facility] Address:[address] [place] [address] Performed By: #### 21397-8 ####[facility] LABIA [id number] [place], [place] [address]Fkmzrkkvzz (Bld) [Mass/Vol]9.9 g/dLLow11.5-15.5C[facility] on above:Order Comment: Specimen Type: BLOOD SPECIMENOrdering Facility: [facility] Address:[address] [place], [place] [address]Performed By: #### 14126-3 ####[facility] LABIA [id number] [place], [place] [address]Ydeeebvs granulocytes (Bld) [#/Vol]0.03 10*3/uLNormal <0.10[facility] on above:Order Comment: Specimen Type: BLOOD SPECIMENOrdering Facility: [facility] Address:[address] [place], [place] [address]Performed By: #### 23861-6 ####[facility] LABIA [id number] [place], [place] [address]Nshntmxn granulocytes/100 WBC (Bld)0.4 %NormalSelect Medical Specialty Hospital [facility] [place] on above: Order Comment: Specimen Type: BLOOD SPECIMENOrdering Facility: [facility] Address:[address] [place], [place] [address]Performed By: #### 02021- 8 ####[facility] LABCLIA [id number] [place], [place] [address]Ehrfruhhqse (Bld) [#/Vol]0.69 10*3/uLLow1.00-4.00 [facility] on above:Order Comment: Specimen Type: BLOOD SPECIMENOrdering Facility: [facility] Address:[address] [place], [place] [address]Performed By: #### 10465-7 ####[facility] LABCLIA [id number] [place], [place] [address]Eqowwaifwpe/100 WBC (Bld)8.4 %NormalSelect Medical Specialty Hospital - [place] on above:Order Comment: Specimen Type: BLOOD SPECIMENOrdering Facility: [facility] Address:[address] [place], [place] [address]Performed By: #### 92838-8 ####[facility] LABCLIA [id number] [place], [place] [address]FZC (RBC) [Entitic mass]30.7 scEatuxp10.0-34.0[facility] on above:Order Comment: Specimen Type: BLOOD SPECIMENOrdering Facility: [facility] Address:[address] [place], [place] [address]Performed By: #### 60328-5 ####[facility] LABCLIA [id number] [place], [place] [address]HGEO (RBC) [Mass/Vol]30.5 g/zQRsungh03.5-36.0[facility] on above: Order Comment: Specimen Type: BLOOD SPECIMENOrdering Facility: [facility] Address:[address] [place], [place] [address]Performed By: #### 95128- 8 ####[facility] LABCLIA [id number] [place], [place] [address]XRL (RBC) [Entitic vol]100.9 qMUmhg26.0-100.0[facility] on above:Order Comment: Specimen Type: BLOOD SPECIMENOrdering Facility: [facility] Address:[address] [place], [place] [address]Performed By: #### 16718-1 ####[facility] LABCLIA [id number] [place], [place] [address]Bvwqkgwxm (Bld) [#/Vol]0.66 10*3/uLNormal<0.87[facility] on above:Order Comment: Specimen Type: BLOOD SPECIMENOrdering Facility: [facility] Address:[address] [place], [place] [address]Performed By: #### 01422- 8 ####[facility] LABCLIA [id number] [place], [place] [address]Ixjmyncuy/100 WBC (Bld)8.0 %NormalSelect Medical Specialty Hospital [facility] [place] on above:Order Comment: Specimen Type: BLOOD SPECIMENOrdering Facility: [facility] Address:[address] [place], [place] [address]Performed By: #### 40582-0 ####[facility] LABCLIA [id number] [place], [place] [address]Lekexcnakuu (Bld) [#/Vol]6.59 10*3/uLNormal1.45-7.50[facility] on above:Order Comment: Specimen Type: BLOOD SPECIMENOrdering Facility: [facility] Address:[address] [place], [place] [address]Performed By: #### 80187-7 ####[facility] LABCLIA [id number] [place], [place] [address]Wxotvoulcob/100 WBC (Bld)79.8 %NormalSelect Medical Specialty Hospital [facility] [place] on above:Order Comment: Specimen Type: BLOOD SPECIMENOrdering Facility: [facility] Address:[address] [place], [place] [address]Performed By: #### 34096-3 ####[facility] LABCLIA [id number] [place], [place] [address]Tisczmxjr RBC (Bld) [#/Vol] 10*3/uLNormal<0.01[facility] on above:Order Comment: Specimen Type: BLOOD SPECIMENOrdering Facility: [facility] Address:[address] [place], [place] [address]Performed By: #### 60824-0 ####[facility] LABCLIA [id number] [place], [place] [address]Tdmaypqpj RBC/100 WBC (Bld) [Ratio]0.0 /100 WBCNormal [facility] on above:Order Comment: Specimen Type: BLOOD SPECIMENOrdering Facility: [facility] Address:[address] [place], [place] [address]Performed By: #### 44749-2 ####[facility] LABCLIA [id number] [place], [place] [address]Fsluxrgq mean volume (Bld) [Entitic vol]8.9 fLLow9.0-12.7C[facility] on above:Order Comment: Specimen Type: BLOOD SPECIMENOrdering Facility: [facility] Address:[address] [place], [place] [address]Performed By: #### 52033-1 ####[facility] LABCLIA [id number] [place], [place] [address]Zkbdnlqmd (Bld) [#/Vol]368 10*3/wBLoooht838-133FefibwkenSelect Medical Specialty Hospital [facility] [place] on above:Order Comment: Specimen Type: BLOOD SPECIMENOrdering Facility: [facility] Address:[address] [place], [place] [address]Performed By: #### 25540-1 ####[facility] LABCLIA [id number] LIZETH ELLIOTTARIZONA SPINE AND JOINT HOSPITALKASEYJ[place], [place] [address]DHZ (Bld) [#/Vol]3.22 10*6/uLLow3.90-5.20[facility] on above:Order Comment: Specimen Type: BLOOD SPECIMENOrdering Facility: [facility] Address:[address] [place], [place] [address]Performed By: #### 06558- 8 ####[facility] LABCLIA [id number] [facility] [place], [place] [address]APH (Bld) [#/Vol]8.25 10*3/uLNormal3.70-11.00[facility] on above:Order Comment: Specimen Type: BLOOD SPECIMENOrdering Facility: [facility] Address:[address] [place], [place] [address]Performed By: #### 05508-2 ####[facility] LABIA [id number] [facility] [place], [place] [address]ZNNTdx 74-29-9635BSDIClpuchMtulbmnyp Clinic ClevelandCNOVSPon 99-75-4711HNWXIAHnaxbq [facility] HospitalComprehensive metabolic 2000 panelon 84-75-0897Zidgvyw [Mass/Vol]3.8 g/dLLow3.9-4.9C[facility] on above:Order Comment: Specimen Type: BLOOD SPECIMENOrdering Facility: [facility] Address:[address] [place], [place] [address]Performed By: #### 77455- 9, 03729-0 ####[facility] LABIA [id number] [facility] JOSEATRI[facility] FLO[facility] CHEROKEE MEDICAL CENTERAileenJACKSON, [place] [address]HFC [Catalytic activity/Vol]98 U/IMnpctr43-629 [facility] on above:Order Comment: Specimen Type: BLOOD SPECIMENOrdering Facility: [facility] Address:[address] [place], [place] [address]Performed By: #### 96098-3, 17075-5 ####[facility] LABCLIA [id number] [place], [place] [address]UVK [Catalytic activity/Vol]12 U/LNormal7-38[facility] on above:Order Comment: Specimen Type: BLOOD SPECIMENOrdering Facility: [facility] Address:[address] [place], [place] [address]Performed By: #### 72857-1, 95791-2 ####[facility] LABCLIA [id number] [place], [place] [address]Pstjw gap [Moles/Vol]12 mmol/LNormal8-15 [facility] on above:Order Comment: Specimen Type: BLOOD SPECIMENOrdering Facility: [facility] Address:[address] [place], [place] [address]Performed By: #### 01072-7, 27615-5 ####[facility] LABCLIA [id number] [place], [place] [address]KIB [Catalytic activity/Vol]10 U/SIjs37-48FlgthvqsrSelect Medical Specialty [facility] [place] on above:Order Comment: Specimen Type: BLOOD SPECIMENOrdering Facility: [facility] Address:[address] [place], [place] [address]Performed By: #### 92323-0, 64794-2 ####[facility] LABCLIA [id number] [place], [place] [address]Dhnenuzna [Mass/Vol]0.4 mg/dLNormal0.2-1.3 [facility] on above:Order Comment: Specimen Type: BLOOD SPECIMENOrdering Facility: [facility] Address:[address] [place], [place] [address]Performed By: #### 19796-0, 14638-8 ####[facility] LABCLIA [id number] [place], [place] [address]Xriqcrv [Mass/Vol]9.8 mg/dLNormal8.5-10.2C[facility] on above: Order Comment: Specimen Type: BLOOD SPECIMENOrdering Facility: [facility] Address:[address] [place], [place] [address]Performed By: #### 67477- 9, 62828-1 ####[facility] LABCLIA [id number] [place], [place] [address]Dowblkxk [Moles/Vol]100 mmol/KEyspah18-022MwuuisltnSelect Medical Specialty [facility] [place] on above:Order Comment: Specimen Type: BLOOD SPECIMENOrdering Facility: [facility] Address:[address] [place], [place] [address]Performed By: #### 71561-1, 05897-2 ####[facility] LABCLIA [id number] [place], [place] [address]LZ9 [Moles/Vol]27 mmol/QEgyjgr90-53CitllqlkvSelect Medical Specialty [facility] on above:Order Comment: Specimen Type: BLOOD SPECIMENOrdering Facility: [facility] Address:[address] [place], [place] [address]Performed By: #### 95275- 9, 71985-8 ####[facility] LABCLIA [id number] [place], [place] [address]Ouadlerbab [Mass/Vol]0.54 mg/dLLow0.58-0.96 [facility] on above:Order Comment: Specimen Type: BLOOD SPECIMENOrdering Facility: [facility] Address:[address] [place], [place] [address]Performed By: #### 89355-3, 50873-3 ####[facility] LABCLIA [id number] [place], [place] [address]oTSSnc SerPlBld CKD-EPI 9898570 mL/min/1.73m???Normal>=60[facility] Comment on above:Order Comment: Specimen Type: BLOOD SPECIMENOrdering Facility: [facility] Address:[address] [place], [place] [address]Result Comment: Estimated Glomerular Filtration Rate (eGFR) is calculated using the 2020 CKD-EPI creatinine equation. This equation utilizes serum creatinine, sex, and age as parameters. The creatinine assay has traceable calibration to isotope dilution-mass spectrometry. Refer to KDIGO guidelines for clinical interpretation. In patients with unstable renal function, e.g. those with acute kidney injury, the eGFR may not accurately reflect actual GFR.Performed By: #### 23035-4, 64050-2 ####[facility] LABCLIA [id number] [place], [place] [address]Xrrsekb [Mass/Vol]115 mg/aJMzjo79-10 [facility] on above:Order Comment: Specimen Type: BLOOD SPECIMENOrdering Facility: [facility] Address:[address] [place], [place] [address]Result Comment: The [place] Diabetes [employer] (ADA) provides guidance for cutoff values for fasting glucose and random glucose. The ADA defines fasting as no caloric intake for at least 8 hours. Fasting plasma glucose results between 100 to 125 mg/dL indicate increased risk for diabetes (prediabetes).Fasting plasma glucose results greater than or equal to 126 mg/dL meet the criteria for diagnosis of diabetes. In the absence of unequivocal hyperglycemia, results should be confirmed by repeattesting. In a patient with classic symptoms of hyperglycemia or hyperglycemic crisis, random plasmaglucose results greater than or equal to 200 mg/dL meet the criteria for diagnosis of diabetes.Reference: Standards of Medical Care in Diabetes 2016, [place] [employer]. Diabetes Care. 2016.39(Suppl 1).Performed By: #### 57216- 9, 91297-3 ####[facility] LABCLIA [id number] [place], [place] [address]Xtlanlgcp [Moles/Vol]4.2 mmol/LNormal3.7-5.1 [facility] on above:Order Comment: Specimen Type: BLOOD SPECIMENOrdering Facility: [facility] Address:[address] [place] [address]Itcaoeomr By: #### 87394-0, 62755-1 ####[facility] LABCLIA [id number] [place], [place] [address]Alxvhqs [Mass/Vol]7.1 g/dLNormal6.3-8.0[facility] on above:Order Comment: Specimen Type: BLOOD SPECIMENOrdering Facility: [facility] Address:[address] [place], [place] [address]Performed By: #### 40925- 9, 13224-0 ####[facility] LABCLIA [id number] [place], [place] [address]Lgdzjt [Moles/Vol]139 mmol/STfrpna061-777UyiybcwtjSelect Medical Specialty [facility] [place] on above:Order Comment: Specimen Type: BLOOD SPECIMENOrdering Facility: [facility] Address:[address] [place], [place] [address]Performed By: #### 81909-1, 98597-9 ####[facility] LABCLIA [id number] [place], [place] [address]Zldg nitrogen [Mass/Vol]12 mg/dLNormal7-21[facility] on above: Order Comment: Specimen Type: BLOOD SPECIMENOrdering Facility: [facility] Address:[address] [place], [place] [address]Performed By: #### 57981- 9, 31296-7 ####[facility] LABCLIA [id number] [place], [place] [address]Pvbymwpfg SerPl-mCncon 67-13-8968Myohfwqcs [Mass/Vol]1.8 mg/dLNormal1.7-2.3C[facility] on above:Order Comment: Specimen Type: BLOOD SPECIMENOrdering Facility: [facility] Address:[address] [place], [place] [address]Performed By: #### 03098- 9, 24891-4 ####[facility] LABCLIA [id number] [place], [place] [address]B1 Free SerPl-mCncon 19-41-8924Zllq T4 [Mass/Vol] 0.9 ng/dLNormal0.9-1.7C[facility] on above:Order Comment: Specimen Type: BLOOD SPECIMENOrdering Facility: [facility] Address:[address] [place], [place] [address]Performed By: #### 3016-3, TSHRF, 3024-7 ####[facility] LABCLIA [id number] [address]TS SerPl-aCncon 43-28-3417VBL Qn8.080 m[IU]/LHigh0.270-4.200[facility] on above:Order Comment: Specimen Type: BLOOD SPECIMENOrdering Facility: [facility] Address:[address] [place], [place] [address]Performed By: #### 3016- 3, [facility], 7 ####[facility] LABCLIA [id number] [address]REETCNOVon 85-47-6042KIPQ NormalMemorial Health System [facility] Memorial HospitalCNCOon 11-41-2203THQNAkpann TextNormalCMercy Health Perrysburg HospitalCNOVon 17-17-7466JBNBJzmgaiTtuwvtlhw Clinic ClevelandCB W Auto Differential panel (Bld)on 93-38-1059Wmpmpxmra (Bld) [#/Vol]0.03 10*3/uLNormal <0.11C[facility] on above:Order Comment: Specimen Type: BLOOD SPECIMENOrdering Facility: [facility] Address:[address] [place], [place] [address]Performed By: #### 55998-9 ####[facility] LABCLIA [id number] [place] [address] Basophils/100 WBC (Bld)0.5 %[facility] on above: Order Comment: Specimen Type: BLOOD SPECIMENOrdering Facility: [facility] Address:[address] [place], [place] [address]Performed By: #### 71152- 8 ####[facility] LABCLIA [id number] [place], [place] [address]Hsazfwahbhst cell count method Nom (Bld)AutoNormal [facility] on above:Order Comment: Specimen Type: BLOOD SPECIMENOrdering Facility: [facility] Address:[address] [place], [place] [address]Performed By: #### 76968-3 ####[facility] LABIA [id number] [place], [place] [address]Ndifbownsiv (Bld) [#/Vol]0.21 10*3/uLNormal<0.46[facility] on above: Order Comment: Specimen Type: BLOOD SPECIMENOrdering Facility: [facility] Address:[address] [place], [place] [address]Performed By: #### 16696- 8 ####[facility] LABCLIA [id number] [place], [place] [address]Lokztutkdjd/100 WBC (Bld)3.8 %NormalSelect Medical Specialty [facility] on above:Order Comment: Specimen Type: BLOOD SPECIMENOrdering Facility: [facility] Address:[address] [place], [place] [address]Performed By: #### 49779-6 ####[facility] LABIA [id number] [place], [place] [address]Sxwyfwrfdlv distribution width (RBC) [Ratio]13.1 %Grjvkj25.5-15.0[facility] on above: Order Comment: Specimen Type: BLOOD SPECIMENOrdering Facility: [facility] Address:[address] [place], [place] [address]Performed By: #### 66907- 8 ####[facility] LABIA [id number] [place], [place] [address]Nghwadufxt (Bld) [Volume fraction]30.3 %Low36.0-46.0 [facility] on above:Order Comment: Specimen Type: BLOOD SPECIMENOrdering Facility: [facility] Address:[address] [place], [place] [address]Performed By: #### 61077-4 ####[facility] LABCLIA [id number] [place], [place] [address]Oynfzhnarw (Bld) [Mass/Vol]9.4 g/dLLow11.5-15.5CWay[facility] on above:Order Comment: Specimen Type: BLOOD SPECIMENOrdering Facility: [facility] Address:[address] [place], [place] [address]Performed By: #### [id number]- [id number] ####[facility] LABCLIA [id number] [place], [place] [address]Dpqgdjni granulocytes (Bld) [#/Vol]0.03 10*3/uLNormal <0.10[facility] on above:Order Comment: Specimen Type: BLOOD SPECIMENOrdering Facility: [facility] Address:[address] [place], [place] [address]Performed By: #### 11150-8 ####[facility] LABIA [id number] [place], [place] [address]Atyqynif granulocytes/100 WBC (Bld)0.5 %NormalSelect Medical [facility]ty [facility] on above: Order Comment: Specimen Type: BLOOD SPECIMENOrdering Facility: [facility] Address:[address] [place], [place] [address]Performed By: #### 70499- 8 ####[facility] LABCLIA [id number] [place], [place] [address]Vzcwwuudzfm (Bld) [#/Vol]0.54 10*3/uLLow1.00-4.00 [facility] on above:Order Comment: Specimen Type: BLOOD SPECIMENOrdering Facility: [facility] Address:[address] [place], [place] [address]Performed By: #### 59520-2 ####[facility] LABCLIA [id number] [place], [place] [address]Rtfrqzidzyj/100 WBC (Bld)9.9 %NormalSelect Medical Specialty [facility] on above:Order Comment: Specimen Type: BLOOD SPECIMENOrdering Facility: [facility] Address:[address] [place], [place] [address]Performed By: #### 14971-8 ####[facility] LABCLIA [id number] [place], [place] [address]NFR (RBC) [Entitic mass]31.8 xyEmckvo84.0-34.0[facility] on above:Order Comment: Specimen Type: BLOOD SPECIMENOrdering Facility: [facility] Address:[address] [place], [place] [address]Performed By: #### 60174-5 ####[facility] LABIA [id number] [place], [place] [address]EEVC (RBC) [Mass/Vol]31.0 g/tCJjskht80.5-36.0[facility] on above: Order Comment: Specimen Type: BLOOD SPECIMENOrdering Facility: [facility] Address:[address] [place], [place] [address]Performed By: #### 96969- 8 ####[facility] LABCLIA [id number] [place], [place] [address]CTL (RBC) [Entitic vol]102.4 uWQlun62.0-100.0[facility] on above:Order Comment: Specimen Type: BLOOD SPECIMENOrdering Facility: [facility] Address:[address] [place], [place] [address]Performed By: #### 48659-0 ####[facility] LABIA [id number] [place], [place] [address]Yjghanebe (Bld) [#/Vol]0.54 10*3/uLNormal<0.87[facility] on above:Order Comment: Specimen Type: BLOOD SPECIMENOrdering Facility: [facility] Address:[address] [place], [place] [address]Performed By: #### 37779- 8 ####[facility] LABCLIA [id number] [place], [place] [address]Qncuheryc/100 WBC (Bld)9.9 %NormalSelect Medical Specialty [facility] on above:Order Comment: Specimen Type: BLOOD SPECIMENOrdering Facility: [facility] Address:[address] [place], [place] [address]Performed By: #### 68388-7 ####[facility] LABCLIA [id number] [place], [place] [address]Ttbnvjtuutc (Bld) [#/Vol]4.13 10*3/uLNormal1.45-7.50[facility] on above:Order Comment: Specimen Type: BLOOD SPECIMENOrdering Facility: [facility] Address:[address] [place], [place] [address]Performed By: #### 09825-2 ####[facility] LABCLIA [id number] [place], [place] [address]Wntssfrbbth/100 WBC (Bld)75.4 %NormalSelect Medical [facility]ty [facility] on above:Order Comment: Specimen Type: BLOOD SPECIMENOrdering Facility: [facility] Address:[address] [place], [place] [address]Performed By: #### 64464-4 ####[facility] LABCLIA [id number] [place], [place] [address]Nipvcvflr RBC (Bld) [#/Vol] 10*3/uLNormal<0.01[facility] on above:Order Comment: Specimen Type: BLOOD SPECIMENOrdering Facility: [facility] Address:[address] [place], [place] [address]Performed By: #### 71873-0 ####[facility] LABCLIA [id number] [place], [place] [address]Flghwdbqk RBC/100 WBC (Bld) [Ratio]0.0 /100 WBCNormal [facility] on above:Order Comment: Specimen Type: BLOOD SPECIMENOrdering Facility: [facility] Address:[address] [place], [place] [address]Performed By: #### 35422-9 ####[facility] LABCLIA [id number] [place], [place] [address]Zkrisple mean volume (Bld) [Entitic vol]8.7 fLLow9.0-12.7CWay[facility] on above:Order Comment: Specimen Type: BLOOD SPECIMENOrdering Facility: [facility] Address:[address] [place], [place] [address]Performed By: #### 98247-3 ####[facility] LABCLIA [id number] [place], [place] [address]Gabkyskjs (Bld) [#/Vol]332 10*3/wNWpknpk236-669RlminblvoSelect Medical Specialty Hospital [facility] on above:Order Comment: Specimen Type: BLOOD SPECIMENOrdering Facility: [facility] Address:[address] [place], [place] [address]Performed By: #### 80800-1 ####[facility] LABCLIA [id number] [place], [place] [address]SEA (Bld) [#/Vol]2.96 10*6/uLLow3.90-5.20[facility] on above:Order Comment: Specimen Type: BLOOD SPECIMENOrdering Facility: [facility] Address:[address] [place], [place] [address]Performed By: #### 60456- 8 ####[facility] LABCLIA [id number] [place], [place] [address]RMN (Bld) [#/Vol]5.48 10*3/uLNormal3.70-11.00[facility] on above:Order Comment: Specimen Type: BLOOD SPECIMENOrdering Facility: [facility] Address:[address] [place], [place] [address]Performed By: #### 25483-9 ####[facility] LABIA [id number] [place], [place] [address]JGMYBGrl 31-82-4852TUBOSTPmlaprVmdaghhjj Clinic ClevelandComprehensive metabolic 2000 panelon 76-69-3160Wseswew [Mass/Vol]3.7 g/dLLow3.9-4.9CMer[facility] Comment on above:Order Comment: Specimen Type: BLOOD SPECIMENOrdering Facility: [facility] Address:[address] [place] [address] Performed By: #### 85966-4, 09626-2 ####[facility] LABCLIA [id number] [place], [place] [address]ZMO [Catalytic activity/Vol]145 U/ELrsf81-216RgqbmnuchSelect [facility] on above:Order Comment: Specimen Type: BLOOD SPECIMENOrdering Facility: [facility] Address:[address] [place], [place] [address]Performed By: #### 37646- 9, 39572-6 ####[facility] LABCLIA [id number] [place], [place] [address]NWE [Catalytic activity/Vol]63 U/LHigh7-38[facility] HospitalComment on above:Order Comment: Specimen Type: BLOOD SPECIMENOrdering Facility: [facility] Address:[address] [place], [place] [address]Performed By: #### 86710-4, 80504-9 ####[facility] LABCLIA [id number] [place], [place] [address]Looxy gap [Moles/Vol]9 mmol/LNormal8-15[facility] on above: Order Comment: Specimen Type: BLOOD SPECIMENOrdering Facility: [facility] Address:[address] [place], [place] [address]Performed By: #### 93571- 9, 33115-3 ####[facility] LABCLIA [id number] [place], [place] [address]DZH [Catalytic activity/Vol]27 U/XOhfscw97-04 [facility] on above:Order Comment: Specimen Type: BLOOD SPECIMENOrdering Facility: [facility] Address:[address] [place], [place] [address]Performed By: #### 51251-9, 85927-5 ####[facility] LABCLIA [id number] [place] [address] Bilirubin [Mass/Vol]0.4 mg/dLNormal0.2-1.3CWay[facility] on above:Order Comment: Specimen Type: BLOOD SPECIMENOrdering Facility: [facility] Address:[address] [place], [place] [address]Performed By: #### 24588-7, 90734-8 ####[facility] LABCLIA [id number] [place], [place] [address]Zywladz [Mass/Vol]9.6 mg/dLNormal8.5-10.2 [facility] on above:Order Comment: Specimen Type: BLOOD SPECIMENOrdering Facility: [facility] Address:[address] [place], [place] [address]Performed By: #### 14861-8, 13904-0 ####[facility] LABCLIA [id number] [place], [place] [address]Htbgjwaj [Moles/Vol]101 mmol/RLuzgfu05-829QfbxznrkpSelect [facility] on above: Order Comment: Specimen Type: BLOOD SPECIMENOrdering Facility: [facility] Address:[address] [place], [place] [address]Performed By: #### 49215- 9, 24161-2 ####[facility] LABCLIA [id number] [place], [place] [address]NH9 [Moles/Vol]29 mmol/ZGeinzv52-92LqnwtmaywSelect [facility] on above:Order Comment: Specimen Type: BLOOD SPECIMENOrdering Facility: [facility] Address:[address] [place] [address]Kdbyktlto By: #### 45652-1, ####[facility] LABCLIA [id number] [place], [place] [address]Mqtbfgmstf [Mass/Vol] 0.47 mg/dLLow0.58-0.96[facility] on above:Order Comment: Specimen Type: BLOOD SPECIMENOrdering Facility: [facility] Address:[address] [place], [place] [address]Performed By: #### 71261-1, ####[facility] LABCLIA [id number] [place], [place] [address]cEPQsm SerPlBld CKD-EPI 6314543 mL/min/1.73m???Normal>=60 [facility] on above:Order Comment: Specimen Type: BLOOD SPECIMENOrdering Facility: [facility] Address:[address] [place], [place] [address]Result Comment: Estimated Glomerular Filtration Rate (eGFR) is calculated using the 2020 CKD-EPI creatinine equation. This equation utilizes serum creatinine, sex, and age as parameters. The creatinine assay has traceable calibration to isotope dilution-mass spectrometry. Refer to KDIGO guidelines for clinical interpretation. In patients with unstable renal function, e.g. those with acute kidney injury, the eGFR may not accurately reflect actual GFR.Performed By: #### 89163-9, ####[facility] LABCLIA [id number] [place], [place] [address]Yocfsql [Mass/Vol]99 mg/dNAjgccu35-87TcirrvcszSelect Medical [facility] on above:Order Comment: Specimen Type: BLOOD SPECIMENOrdering Facility: [facility] Address:[address] [place] [address]Wcxcti Comment: The [place] Diabetes [employer] (ADA) provides guidance for cutoff values for fast ing glucose and random glucose. The ADA defines fasting as no caloric intake for at least 8 hours. Fasting plasma glucose results between 100 to 125 mg/dL indicate increased risk for diabetes (prediabetes).Fasting plasma glucose results greater than or equal to 126 mg/dL meet the criteria for diagnosis of diabetes. In the absence of unequivocal hyperglycemia, results should be confirmed by repeattesting. In a patient with classic symptoms of hyperglycemia or hyperglycemic crisis, random plasmaglucose results greater than or equal to 200 mg/dL meet the criteria for diagnosis of diabetes.Reference: Standards of Medical Care in Diabetes 2016, [place] [employer]. Diabetes Care. 2016.39(Suppl 1).Performed By: #### 87158-7, 66472-3 ####[facility] LABCLIA [id number] [place] [address] Potassium [Moles/Vol]3.9 mmol/LNormal3.7-5.1C[facility] on above:Order Comment: Specimen Type: BLOOD SPECIMENOrdering Facility: [facility] Address:[address] [place], [place] [address]Performed By: #### 43057-5, ####[facility] LABCLIA [id number] [place], [place] [address]Spbvuiu [Mass/Vol]7.2 g/dLNormal6.3-8.0 [facility] on above:Order Comment: Specimen Type: BLOOD SPECIMENOrdering Facility: [facility] Address:[address] [place], [place] [address]Performed By: #### 37197-7, 00844-8 ####[facility] LABCLIA [id number] [place], [place] [address]Tgbsfd [Moles/Vol]139 mmol/RNjqsgu024-285CkchrikoqSelect Medical [facility]ty [facility] on above: Order Comment: Specimen Type: BLOOD SPECIMENOrdering Facility: [facility] Address:[address] [place], [place] [address]Performed By: #### 87389- 9, 86960-0 ####[facility] LABCLIA [id number] [place], [place] [address]Tfdo nitrogen [Mass/Vol]14 mg/dLNormal7-21[facility] on above:Order Comment: Specimen Type: BLOOD SPECIMENOrdering Facility: [facility] Address:[address] [place], [place] [address]Performed By: #### 18182-6, 96156-0 ####[facility] LABIA [id number] [place] [address] Magnesium SerPl-mCncon 13-38-5838Oyvgizdwu [Mass/Vol]2.0 mg/dLNormal1.7-2.3 [facility] on above:Order Comment: Specimen Type: BLOOD SPECIMENOrdering Facility: [facility] Address:[address] [place], [place] [address]Performed By: #### 01519-1, 25676-5 ####[facility] LABIA [id number] [place], [place] [address]VTQ SerPl-aCncon 28-37-0491BYM Qn18.200 m[IU]/LHigh0.270-4.200[facility] on above:Order Comment: Specimen Type: BLOOD SPECIMENOrdering Facility: [facility] Address:[address] [place], [place] [address]Performed By: #### 3016-3 ####[facility] LABIA [id number] [place] [address] [place] CNOVon 87-60-2932GTGJLaerekJyjqdhdja Clinic ClevelandCNPNon 10-70-2262CHFXBolzhy [facility] Memorial HospitalCNOVon 42-08-2764OZMHEhezueRrlspkquf [facility] CNPNon 53-10-7249JEYAFvgydmUhnesdiff Clinic ClevelandCNOVon 69-92-2983TASSZwrzjr [facility] HospitalCNPNon 08-45-6635NTBEDfwbxcDrmccbifh [facility] CNCNPATEDon 82-11-1755HFXDAZOCXKapltjUbqjgdnjy Clinic ClevelandCNNURSEon 62-35-1512GORSKFYEygyzlQxbyhrxtc Clinic ClevelandCNOVon 71-36-3736HZELZdxbhk [facility] Memorial HospitalCNPNon 14-83-7560KKOCPcbsfnFrxqujjij [facility] [place] ISTAT XRay CREon 37-73-6474IBGVF GFR>60.0NoCritical access hospital Physician Group Comment on above:Result Comment: PERFORMED BY: [place] [address] PATHOLOGIST BRIEFCASE SEWER ALL SOLIS M.D.Performed By: #### ISCRE #### [place] [address] USAMR head/brain wo/w conon 54-46-6075FB head/brain wo/w con [facility] [place] [address] [place] [address] MRI Report Signed Patient: Ofe Saravia MR#: [id number] : 1955 Acct:[id number] Age/Sex: 69 / F ADM Date: 02/02/25 Loc: Room: Type: [facility] Attending Dr: Isaac Gracia MD Copies to: Isaac Gracia MD Ordering Provider: Isaac Gracia MD Date of Service: 02/02/25 MR/MR head/brain wo/w con: C34.92 MRI BRAIN WITHOUT AND WITH INTRAVENOUS CONTRAST CLINICAL DATA: Lung cancer staging COMPARISON: MRI brain 09/01/2024 Multiecho, multiplanar imaging of the brain was performed before and after intravenous administration of 16 mL of ProHance. Findings: No restricted diffusion. Mild central involutional changes. Stable cavernoma right dorsal cesar and possible cavernoma left parietal white matter. Mild hemiatrophy left cerebellar hemisphere. Mild chronic small vessel changes. Increased pial vascularity left occipital lobe may suggest a pial- based AVM. Right dorsal pontine DVA. No evidence of abnormal postcontrast enhancement intracranially.. Stable left frontal bone lesion. MR/MR head/brain wo/w con IMPRESSION: No evidence of intracranial enhancement to suggest metastatic disease. 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 02/02/2025 4:48 PM Dictation Location: RADIO-PC-26 Transcribed By: COLETTE 02/02/25 1648 Dictated By: Fran Osorio MD 02/02/25 1635 Signed By: 02/02/25 1648[facility] Physician GroupMaetic resonance imaging reportOrdered By: Fran Osorio on 14-92-1519Zqcql reportOHIOHEALTH [facility] [place] [address] [place] [address] MRI Report Signed Patient: Ofe Saravia MR#: [id number] : 1955 Acct:[id number] Age/Sex: 69 / F ADM Date: 5 Loc: MR Room: Type: [facility] Attending Dr: Isaac Gracia MD Copies to: Isaac Gracia MD~ Ordering Provider: Isaac Gracia MD Date of Service: 02/02/25 MR/MR head/brain wo/w con: C34.92 MRI BRAIN WITHOUT AND WITH INTRAVENOUS CONTRAST CLINICAL DATA: Lung cancer staging COMPARISON: MRI brain 09/01/2024 Multiecho, multiplanar imaging of the brain was performed before and after intravenous administration of 16 mL of ProHance. Findings: No restricted diffusion. Mild central involutional changes. Stable cavernoma right dorsal cesar and possible cavernoma left parietal white matter. Mild hemiatrophy left cerebellar hemisphere. Mild chronic small vessel changes. Increased pial vascularity left occipital lobe may suggest a pial-based AVM. Right dorsal pontine DVA. No evidence of abnormal postcontrast enhancement intracranially.. Stable left frontal bone lesion. MR/MR head/brain wo/w con IMPRESSION: No evidence of intracranial enhancement to suggest metastatic disease. 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 02/02/2025 4:48 PM Dictation Location: RADIO-PC-26 Transcribed By: COLETTE 02/02/251647 Dictated By: Fran Osorio MD 02/02/25 163 Signed By: 02/02/251647 [facility] Work Phone: no Panel InformationOrdered By: Isaac Gracia on 31-58-0880Asajwmx Estimated GFR (eGFR)> 60.0[facility] Whole blood creatinine measurementOrdered By: Isaac Gracia on 02-02-2025 Creatinine [Mass/Vol]0.6 mg/dLNormal0.6-1.3FJ.[facility]. [facility] Comment on above:ER/ESD physician is notified/shown all ISTAT results.Critical values may be confirmed by laboratorytesting ifdeemed necessary by ER attending doctor.Result Comment: ER/ESD physician is notified/shown all ISTAT results. Critical values may be confirmed by laboratory testing if deemed necessary by ER attending doctor.Performed By: #### ISCRE #### [place] [address] USACNPNon 80-03-7445CSFSZbbghiZickexkjrSalem City Hospital CNOVSPon 16-50-9729HNMFMKZwpquuRwtmwvujw [facility] CampusCNPNon 02-90-5121MPLW NormalProm[facility]ica [facility] Cletrumbull memorial hospitalCNOVon 76-07-6808ONZFSvduvuSxtfujrtm [facility] CampusCNPNon 73-31-1891PDGPVpzmycAawlvcjdj Clinic ClevelandCNNURSEon 76-06-7187SEIXWZTXmfoktUlmctbwsb Clinic ClevelandNM PET/CT SKULL-THIGH SUBQon 05-14-9733MK PET/CT SKULL-THIGH SUBQNormalCMercy Health Perrysburg HospitalPET+CT Guidance for localization of tumor of Skull base to mid-thigh-- W 18F-FDG Carmen 79-96-5405Dncpsoto by Provider, [facility] [place] on 01/18/2025 12:25 PM EDT * * *Final Report* * * * * * SEE BOTTOM OF REPORT FOR ADDENDED TEXT * * * DATE OF EXAM: Jan 18 2025 9:48AM NRN 0063 - NM PET/CT SKULL-THIGH SUBQ / PROCEDURE REASON: Metastatic cancer to bone (HCC) * * * * Physician Interpretation * * * * RESULT: * * * * * * * * ORIGINAL REPORT * * * * * * * * EXAMINATION: BODY FDG PET-CT CLINICAL HISTORY: Metastatic cancer to bone (HCC) . Metastatic symptoms carcinoma, likely pulmonary origin given LEFT upper lobe mass with multiple lytic metastases status post Completed radiation on 08/31/24. EXAM CATEGORY: Subsequent treatment strategy. TECHNIQUE: Radiopharmaceutical [...] some pathology. * CT Dose-Length Product (DLP): 261 mGy*cm * CT Dose Reduction Employed: Yes * Blood glucose: 100 mg/dL * Injection site: Right Forearm-Antecubital * Injected activity: 10.3 mCi * Uptake Time: 56 minutes * Radiopharmaceutical: K08-Avmqqidvhnjlkfeehd (FDG) COMPARISON: FDG PET/CT 11/15/2024 CORRELATION: Outside CT chest 09/06/2024, CTA abdomen pelvis 09/07/2024 RESULT: REFERENCES: FDG uptake is used as a surrogate marker for glucose metabolism. All reported standardized uptake values represent maximum SUV (SUVmax) per body weight, unless otherwise specified. SUV reference values, as follows: * Blood Pool (Descending Aorta): SUVmax 2.1 * Background Liver: SUVmax 2.7; SUVmean 1.9 Localizer Images: No additional findings. HEAD AND NECK: Head: No radiotracer avid lesion where imaged. RIGHT eyelid weight. Mild metabolic activity surrounding the LEFT maxillary residual molar root periapical lucency (Max SUV:4.0; image 27). Aerodigestive Tract: Metabolically active soft tissue thickening along the LEFT tongue base and glossotonsillar sulcus with effacement of the LEFT vallecula, slightly increased in conspicuity from prior (Max SUV:5.4, 4.9 on prior; image 30). Lymph Nodes: Marked interval increase in size and metabolic activity of now 28 x 25 mm RIGHT level 5A/5B node, previously measuring up to 6 mm in short axis (Max SUV:35.9, 16.6 on prior; image 57). Neck Soft Tissues: Postoperative changes of the RIGHT neck including multiple clips from prior RIGHT selective neck dissection. Diffusely increased radiotracer uptake throughout the thyroid gland (SUVmax 9.8). CHEST: Lungs & Pleura: Metabolically active dense masslike process within the LEFT superior perihilar lung with associated LEFT upper lobe bronchial obstruction and postobstructive patchy consolidative opacities and interlobular thickening (Max SUV:21.1, 10.6 on prior; image 90), increased in size from prior now measuring approximately 4.2 x 3.9 cm, previously 3.4 x 2.9 cm on 11/15/2024. No other radiotracer avid mass, nodule, or consolidation. No pleural effusion. No increased radiotracer uptake associated with the lung nodule(s) measuring less than 8 mm. 7.1 Including subtle 3 mm subpleural nodules in the RIGHT upper and RIGHT lower lobes However, PET is often not sensitive for lung nodules smaller than 8 mm. Lymph Nodes: Metabolically active LEFT hilar nodes including a 2 mm in short axis anterior LEFT hilar node (Max SUV:7.1; image 100), and 8 mm in short axis posterior LEFT hilar node (Max SUV:12.4; image 100). Mediastinum: No radiotracer avid mass. Cardiovascular: Blood pool activity. No pericardial effusion. Normal heart size. Chest Wall: No radiotracer avid soft tissue lesion. ABDOMEN AND PELVIS: Hepatobiliary: No radiotracer avid lesion. No measurable mass. Spleen: No radiotracer avid lesion. No splenomegaly. Pancreas: No radiotracer avid lesion. Adrenals: No radiotracer avid nodule. Urinary Tract: Physiologic radiotracer excretion in the renal collecting systems and urinary bladder. No hydronephrosis. Non-obstructing nephrolithiasis. GI Tract: No radiotracer avid lesion. No bowel dilation. Peritoneum: No radiotracer avid lesion. No ascites. Lymph Nodes: No radiotracer avid lymphadenopathy. Vasculature: Blood pool activity. Vascular calcifications without an abdominal aortic aneurysm. Pelvic Organs: No radiotracer avid lesion. 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 * Infilt (more content not included)...[facility] HospitalRadiology Study observation (narrative)[facility] ClinicPET+CT Guidance for localization of tumor of Skull base to mid-thigh-- W 18F-FDG IVOrdered By: [facility] Provider on 01-18-2025 [facility] HospitalCNPNon 14-50-2622DFOSChhymcLckiahomz Clinic ClevelandCBC W Auto Differential panel (Bld)on 22-60-3297Nkhykbyex (Bld) [#/Vol]10*3/uLNormal<0.11 [facility] on above:Order Comment: Specimen Type: BLOOD SPECIMENOrdering Facility: [facility] Address:[address] [place], [place] [address]Performed By: #### 02619-3 ####[facility] LABCLIA [id number] [place], [place] [address]Attyarfac/100 WBC (Bld)0.3 %NormalSelect Medical [facility] on above:Order Comment: Specimen Type: BLOOD SPECIMENOrdering Facility: [facility] Address:[address] [place], [place] [address]Performed By: #### 56821-5 ####[facility] LABCLIA [id number] [place], [place] [address]Ysgwfhvwpzaf cell count method Nom (Bld)AutoNormal [facility] on above:Order Comment: Specimen Type: BLOOD SPECIMENOrdering Facility: [facility] Address:[address] [place], [place] [address]Performed By: #### 33634-2 ####[facility] LABIA [id number] [place], [place] [address]Nktesikkeps (Bld) [#/Vol]0.03 10*3/uLNormal<0.46[facility] on above: Order Comment: Specimen Type: BLOOD SPECIMENOrdering Facility: [facility] Address:[address] [place], [place] [address]Performed By: #### 92684- 8 ####[facility] LABCLIA [id number] [place], [place] [address]Bvenfodnnbx/100 WBC (Bld)0.5 %NormalSelect Medical Specialty [facility] on above:Order Comment: Specimen Type: BLOOD SPECIMENOrdering Facility: [facility] Address:[address] [place], [place] [address]Performed By: #### 44930-6 ####[facility] LABCLIA [id number] [place], [place] [address]Balulcaazkb distribution width (RBC) [Ratio]15.5 %High11.5-15.0[facility] on above:Order Comment: Specimen Type: BLOOD SPECIMENOrdering Facility: [facility] Address:[address] [place], [place] [address]Performed By: #### 35845- 8 ####[facility] LABCLIA [id number] [place], [place] [address]Nxzxlqgrcq (Bld) [Volume fraction]35.3 %Low36.0-46.0 [facility] on above:Order Comment: Specimen Type: BLOOD SPECIMENOrdering Facility: [facility] Address:[address] [place], [place] [address]Performed By: #### 69365-0 ####[facility] LABCLIA [id number] [place], [place] [address]Webxymhzds (Bld) [Mass/Vol]11.6 g/kQFyweiq56.5-15.5C[facility] on above: Order Comment: Specimen Type: BLOOD SPECIMENOrdering Facility: [facility] Address:[address] [place], [place] [address]Performed By: #### 18281- 8 ####[facility] LABCLIA [id number] [place], [place] [address]Jtyjnxph granulocytes (Bld) [#/Vol]10*3/uLNormal<0.10 [facility] on above:Order Comment: Specimen Type: BLOOD SPECIMENOrdering Facility: [facility] Address:[address] [place], [place] [address]Performed By: #### 23194-4 ####[facility] LABCLIA [id number] [place], [place] [address]Ieppndvp granulocytes/100 WBC (Bld)0.3 %NormalSelect Medical [facility]ty [facility] on above: Order Comment: Specimen Type: BLOOD SPECIMENOrdering Facility: [facility] Address:[address] [place], [place] [address]Performed By: #### 27682- 8 ####[facility] LABCLIA [id number] [place], [place] [address]Lwetafaeghj (Bld) [#/Vol]0.75 10*3/uLLow1.00-4.00 [facility] on above:Order Comment: Specimen Type: BLOOD SPECIMENOrdering Facility: [facility] Address:[address] [place], [place] [address]Performed By: #### 08125-8 ####[facility] LABIA [id number] [place], [place] [address]Xzowdzdqrpn/100 WBC (Bld)11.7 %NormalSelect Medical Specialty [facility] on above:Order Comment: Specimen Type: BLOOD SPECIMENOrdering Facility: [facility] Address:[address] [place], [place] [address]Performed By: #### 09540-8 ####[facility] LABIA [id number] [place], [place] [address]JOW (RBC) [Entitic mass]33.7 jyQvrcqb27.0-34.0[facility] on above:Order Comment: Specimen Type: BLOOD SPECIMENOrdering Facility: [facility] Address:[address] [place], [place] [address]Performed By: #### 04919-2 ####[facility] LABIA [id number] [place], [place] [address]HJZK (RBC) [Mass/Vol]32.9 g/aLUvrhcx08.5-36.0[facility] on above: Order Comment: Specimen Type: BLOOD SPECIMENOrdering Facility: [facility] Address:[address] [place], [place] [address]Performed By: #### 16735- 8 ####[facility] LABCLIA [id number] [place], [place] [address]NWQ (RBC) [Entitic vol]102.6 kRPiok55.0-100.0[facility] on above:Order Comment: Specimen Type: BLOOD SPECIMENOrdering Facility: [facility] Address:[address] [place], [place] [address]Performed By: #### 82497-1 ####[facility] LABCLIA [id number] [place], [place] [address]Xvluoajep (Bld) [#/Vol]0.56 10*3/uLNormal<0.87[facility] on above:Order Comment: Specimen Type: BLOOD SPECIMENOrdering Facility: [facility] Address:[address] [place], [place] [address]Performed By: #### 60925- 8 ####[facility] LABCLIA [id number] [place], [place] [address]Toppnxmqw/100 WBC (Bld)8.7 %NormalSelect Medical [facility]ty [facility] on above:Order Comment: Specimen Type: BLOOD SPECIMENOrdering Facility: [facility] Address:[address] [place], [place] [address]Performed By: #### 67328-8 ####[facility] LABIA [id number] [place], [place] [address]Qdxccatzpuj (Bld) [#/Vol]5.04 10*3/uLNormal1.45-7.50[facility] on above:Order Comment: Specimen Type: BLOOD SPECIMENOrdering Facility: [facility] Address:[address] [place], [place] [address]Performed By: #### 74486-5 ####[facility] LABCLIA [id number] [place], [place] [address]Zanrntrzbat/100 WBC (Bld)78.5 %NormalSelect Medical [facility]ty [facility] on above:Order Comment: Specimen Type: BLOOD SPECIMENOrdering Facility: [facility] Address:[address] [place], [place] [address]Performed By: #### 16025-5 ####[facility] LABCLIA [id number] [place], [place] [address]Vlcxjremm RBC (Bld) [#/Vol] 10*3/uLNormal<0.01[facility] on above:Order Comment: Specimen Type: BLOOD SPECIMENOrdering Facility: [facility] Address:[address] [place], [place] [address]Performed By: #### 77607-7 ####[facility] LABCLIA [id number] [place], [place] [address]Rbgkugzxv RBC/100 WBC (Bld) [Ratio]0.0 /100 WBCNormal [facility] on above:Order Comment: Specimen Type: BLOOD SPECIMENOrdering Facility: [facility] Address:[address] [place], [place] [address]Performed By: #### 01588-1 ####[facility] LABIA [id number] [place], [place] [address]Dtppviwt mean volume (Bld) [Entitic vol]9.0 fLNormal9.0-12.7C[facility] on above:Order Comment: Specimen Type: BLOOD SPECIMENOrdering Facility: [facility] Address:[address] [place] [address] Performed By: #### 48893-4 ####[facility] LABIA [id number] [place], [place] [address]Kronvctxb (Bld) [#/Vol]292 10*3/dKTgpavw410-013HxkjerudvSelect Medical [facility] on above:Order Comment: Specimen Type: BLOOD SPECIMENOrdering Facility: [facility] Address:[address] [place], [place] [address]Performed By: #### 48824-5 ####[facility] LABCLIA [id number] [place], [place] [address]DBY (Bld) [#/Vol]3.44 10*6/uLLow3.90-5.20[facility] on above:Order Comment: Specimen Type: BLOOD SPECIMENOrdering Facility: [facility] Address:[address] [place], [place] [address]Performed By: #### 82564-8 ####[facility] [id number] [place], [place] [address]SMA (Bld) [#/Vol]6.42 10*3/uL Normal3.70-11.00[facility] on above:Order Comment: Specimen Type: BLOOD SPECIMENOrdering Facility: [facility] Address:[address] [place], [place] [address]Performed By: #### 34600-5 ####[facility] LABIA [id number] [place], [place] [address]BLXQUZue 48-47-6393LJKFTPWcgimuLkiqqquhxL[facility] metabolic 2000 panelon 09-17-8761Upbazgy [Mass/Vol]4.0 g/dLNormal 3.9-4.9C[facility] on above:Order Comment: Specimen Type: BLOOD SPECIMENOrdering Facility: [facility] Address:[address] [place], [place] [address]Performed By: #### 49864-7 ####[facility] LABIA [id number] [place], [place] [address]LVE [Catalytic activity/Vol]108 U/GUklwuf64-784BqgyktyfpSelect Medical [facility] on above:Order Comment: Specimen Type: BLOOD SPECIMENOrdering Facility: [facility] Address:[address] [place], [place] [address]Performed By: #### 63849-1 ####[facility] LABCLIA [id number] [facility] [place] [address]YRW [Catalytic activity/Vol]11 U/LNormal7-38[facility] on above:Order Comment: Specimen Type: BLOOD SPECIMENOrdering Facility: [facility] Address:[address] [place], [place] [address]Performed By: #### 13924-9 ####[facility] LABCLIA [id number] [place], [place] [address]Urwqm gap [Moles/Vol]9 mmol/LNormal8-15[facility] on above:Order Comment: Specimen Type: BLOOD SPECIMENOrdering Facility: [facility] Address:[address] [place], [place] [address]Performed By: #### 83569- 8 ####[facility] LABCLIA [id number] [facility] [place], [place] [address]GNU [Catalytic activity/Vol]11 U/NQug78-92EirukqeowSelect Medical [facility] on above:Order Comment: Specimen Type: BLOOD SPECIMENOrdering Facility: [facility] Address:[address] [place], [place] [address]Performed By: #### 39369-5 ####[facility] LABCLIA [id number] [place], [place] [address]Mfssoyzfs [Mass/Vol]0.2 mg/dLNormal0.2-1.3C[facility] on above:Order Comment: Specimen Type: BLOOD SPECIMENOrdering Facility: [facility] Address:[address] [place], [place] [address]Performed By: #### 21242- 8 ####[facility] LABCLIA [id number] [place], [place] [address]Beyhbag [Mass/Vol]9.6 mg/dLNormal8.5-10.2C[facility] on above:Order Comment: Specimen Type: BLOOD SPECIMENOrdering Facility: [facility] Address:[address] [place], [place] [address]Performed By: #### 86155-2 ####[facility] LABCLIA [id number] [place], [place] [address]Caaauaup [Moles/Vol]104 mmol/L Yqajxc19-689MkjedfhkxSelect [facility] on above:Order Comment: Specimen Type: BLOOD SPECIMENOrdering Facility: [facility] Address:[address] [place], [place] [address]Performed By: #### 58047-3 ####[facility] LABCLIA [id number] [place] [address] CO2 [Moles/Vol]29 mmol/BHngxvu05-47NpofszxdtSelect Medical [facility] on above: Order Comment: Specimen Type: BLOOD SPECIMENOrdering Facility: [facility] Address:[address] [place], [place] [address]Performed By: #### 88555- 8 ####[facility] LABCLIA [id number] [place], [place] [address]Bbgmihsmdp [Mass/Vol]0.48 mg/dLLow0.58-0.96[facility] on above:Order Comment: Specimen Type: BLOOD SPECIMENOrdering Facility: [facility] Address:[address] [place], [place] [address]Performed By: #### 58211-6 ####[facility] LABCLIA [id number] [place], [place] [address]Hjsdcdxmht and Glomerular filtration rate.predicted panel (S/P/Bld)103 mL/min/1.73m???Normal >=60[facility] on above:Order Comment: Specimen Type: BLOOD SPECIMENOrdering Facility: [facility] Address:[address] [place], [place] [address]Result Comment: Estimated Glomerular Filtration Rate (eGFR) is calculated using the 2020 CKD-EPI creatinine equation. This equation utilizes serum creatinine, sex, and age as parameters. The creatinine assay has traceable calibration to isotope dilution-mass spectrometry. Refer to KDIGO guidelines for clinical interpretation. In patients with unstable renal function, e.g. those with acute kidney injury, the eGFR may not accurately reflect actual GFR.Performed By: #### 04048-2 ####[facility] LABCLIA [id number] [place], [place] [address]Ypcnolp [Mass/Vol]108 mg/cXLkow97-36QfmwyjustSelect Medical [facility] on above:Order Comment: Specimen Type: BLOOD SPECIMENOrdering Facility: [facility] Address:[address] [place], [place] [address]Result Comment: The [place] Diabetes [employer] (ADA) provides guidance for cutoff values for fast ing glucose and random glucose. The ADA defines fasting as no caloric intake for at least 8 hours. Fasting plasma glucose results between 100 to 125 mg/dL indicate increased risk for diabetes (prediabetes).Fasting plasma glucose results greater than or equal to 126 mg/dL meet the criteria for diagnosis of diabetes. In the absence of unequivocal hyperglycemia, results should be confirmed by repeattesting. In a patient with classic symptoms of hyperglycemia or hyperglycemic crisis, random plasmaglucose results greater than or equal to 200 mg/dL meet the criteria for diagnosis of diabetes.Reference: Standards of Medical Care in Diabetes 2016, [place] [employer]. Diabetes Care. 2016.39(Suppl 1).Performed By: #### 25364-3 ####[facility] LABCLIA [id number] [place], [place] [address]Wfkmvtqro [Moles/Vol]4.6 mmol/LNormal3.7-5.1C[facility] on above: Order Comment: Specimen Type: BLOOD SPECIMENOrdering Facility: [facility] Address:[address] [place] [address]Utkaghtxg By: #### 47595- 8 ####[facility] LABCLIA [id number] [place], [place] [address]Koyzjkj [Mass/Vol]6.5 g/dLNormal6.3-8.0[facility] on above:Order Comment: Specimen Type: BLOOD SPECIMENOrdering Facility: [facility] Address:[address] [place], [place] [address]Performed By: #### 77607-7 ####[facility] LABCLIA [id number] [place], [place] [address]Aprixk [Moles/Vol]142 mmol/L Bhvims755-065KqrxnqpviSelect Medical [facility] on above:Order Comment: Specimen Type: BLOOD SPECIMENOrdering Facility: [facility] Address:[address] [place], [place] [address]Performed By: #### 53874-2 ####[facility] LABCLIA [id number] [place] [address] Urea nitrogen [Mass/Vol]12 mg/dLNormal7-21[facility] on above:Order Comment: Specimen Type: BLOOD SPECIMENOrdering Facility: [facility] Address:[address] [place], [place] [address]Performed By: #### 71835-4 ####[facility] LABIA [id number] [place], [place] [address]EEW SerPl-aCncon 75-79-5536JNU Qn8.370 m[IU]/LHigh 0.270-4.200[facility] on above:Order Comment: Specimen Type: BLOOD SPECIMENOrdering Facility: [facility] Address:[address] [place], [place] [address]Performed By: #### 3016-3 ####[facility] LABCLIA [id number] [place] [address] [place] OF AMERICACNPNon 58-13-1789JEPTStxqbxLclxovael Clinic ClevelandCBC W Auto Differential panel (Bld)on 61-88-5751Blywlaywl (Bld) [#/Vol]10*3/uL Normal<0.11C[facility] on above:Order Comment: Specimen Type: BLOOD SPECIMENOrdering Facility: [facility] Address:[address] [place], [place] [address]Performed By: #### 68677-7 ####[facility] LABCLIA [id number] [place] [address] Basophils/100 WBC (Bld)0.6 %NormalSelect Medical [facility] on above: Order Comment: Specimen Type: BLOOD SPECIMENOrdering Facility: [facility] Address:[address] [place], [place] [address]Performed By: #### 64760- 8 ####[facility] LABCLIA [id number] [place], [place] [address]Tzvqjpwxrphx cell count method Nom (Bld)AutoNormal [facility] on above:Order Comment: Specimen Type: BLOOD SPECIMENOrdering Facility: [facility] Address:[address] [place], [place] [address]Performed By: #### 02640-5 ####[facility] LABIA [id number] [place], [place] [address]Xghhbharewn (Bld) [#/Vol]0.03 10*3/uLNormal<0.46[facility] on above: Order Comment: Specimen Type: BLOOD SPECIMENOrdering Facility: [facility] Address:[address] [place], [place] [address]Performed By: #### 49680- 8 ####[facility] LABCLIA [id number] [place], [place] [address]Satcuvpgtqo/100 WBC (Bld)0.9 %NormalSelect Medical [facility]ty [facility] on above:Order Comment: Specimen Type: BLOOD SPECIMENOrdering Facility: [facility] Address:[address] [place], [place] [address]Performed By: #### 10825-0 ####[facility] LABIA [id number] [place], [place] [address]Opxkpozowvb distribution width (RBC) [Ratio]17.6 %High11.5-15.0[facility] on above:Order Comment: Specimen Type: BLOOD SPECIMENOrdering Facility: [facility] Address:[address] [place], [place] [address]Performed By: #### 09010- 8 ####[facility] LABCLIA [id number] [place], [place] [address]Pqtlpxtwfv (Bld) [Volume fraction]35.0 %Low36.0-46.0 [facility] on above:Order Comment: Specimen Type: BLOOD SPECIMENOrdering Facility: [facility] Address:[address] [place], [place] [address]Performed By: #### 53583-3 ####[facility] LABIA [id number] [place], [place] [address]Azjabhtnxe (Bld) [Mass/Vol]11.5 g/eYUortmb53.5-15.5C[facility] on above: Order Comment: Specimen Type: BLOOD SPECIMENOrdering Facility: [facility] Address:[address] [place], [place] [address]Performed By: #### 53232- 8 ####[facility] LABCLIA [id number] [place], [place] [address]Klhhqkqm granulocytes (Bld) [#/Vol]10*3/uLNormal<0.10 [facility] on above:Order Comment: Specimen Type: BLOOD SPECIMENOrdering Facility: [facility] Address:[address] [place], [place] [address]Performed By: #### 95447-8 ####[facility] LABIA [id number] [place], [place] [address]Pohuqnrr granulocytes/100 WBC (Bld)0.0 %NormalSelect Medical [facility]ty [facility] on above: Order Comment: Specimen Type: BLOOD SPECIMENOrdering Facility: [facility] Address:[address] [place], [place] [address]Performed By: #### 36922- 8 ####[facility] LABCLIA [id number] [place], [place] [address]Tnehbdlmdgv (Bld) [#/Vol]0.79 10*3/uLLow1.00-4.00 [facility] on above:Order Comment: Specimen Type: BLOOD SPECIMENOrdering Facility: [facility] Address:[address] [place], [place] [address]Performed By: #### 92891-4 ####[facility] LABCLIA [id number] [place], [place] [address]Bknwncjkrqc/100 WBC (Bld)24.9 %NormalSelect Medical Specialty [facility] on above:Order Comment: Specimen Type: BLOOD SPECIMENOrdering Facility: [facility] Address:[address] [place], [place] [address]Performed By: #### 69559-8 ####[facility] LABCLIA [id number] [place], [place] [address]BQR (RBC) [Entitic mass]33.1 fwDhasnz60.0-34.0[facility] on above:Order Comment: Specimen Type: BLOOD SPECIMENOrdering Facility: [facility] Address:[address] [place], [place] [address]Performed By: #### 05949-9 ####[facility] LABIA [id number] [place], [place] [address]WEMF (RBC) [Mass/Vol]32.9 g/tOUlinoe87.5-36.0[facility] on above: Order Comment: Specimen Type: BLOOD SPECIMENOrdering Facility: [facility] Address:[address] [place], [place] [address]Performed By: #### 59306- 8 ####[facility] LABCLIA [id number] [place], [place] [address]OCH (RBC) [Entitic vol]100.9 bUOegu31.0-100.0[facility] on above:Order Comment: Specimen Type: BLOOD SPECIMENOrdering Facility: [facility] Address:[address] [place], [place] [address]Performed By: #### 37316-4 ####[facility] LABCLIA [id number] [place], [place] [address]Prfsjbhue (Bld) [#/Vol]0.37 10*3/uLNormal<0.87[facility] on above:Order Comment: Specimen Type: BLOOD SPECIMENOrdering Facility: [facility] Address:[address] [place], [place] [address]Performed By: #### 50141- 8 ####[facility] LABCLIA [id number] [place], [place] [address]Lgfdglisq/100 WBC (Bld)11.7 %NormalSelect Medical Specialty [facility] on above:Order Comment: Specimen Type: BLOOD SPECIMENOrdering Facility: [facility] Address:[address] [place], [place] [address]Performed By: #### 50635-5 ####[facility] LABCLIA [id number] [place], [place] [address]Waitwlhoyod (Bld) [#/Vol]1.96 10*3/uLNormal1.45-7.50[facility] on above:Order Comment: Specimen Type: BLOOD SPECIMENOrdering Facility: [facility] Address:[address] [place], [place] [address]Performed By: #### 95671-9 ####[facility] LABCLIA [id number] [place], [place] [address]Bbxnifbwstm/100 WBC (Bld)61.9 %NormalSelect Medical Specialty [facility] on above:Order Comment: Specimen Type: BLOOD SPECIMENOrdering Facility: [facility] Address:[address] [place], [place] [address]Performed By: #### 85681-9 ####[facility] LABCLIA [id number] [place], [place] [address]Egdsjibrh RBC (Bld) [#/Vol] 10*3/uLNormal<0.01[facility] on above:Order Comment: Specimen Type: BLOOD SPECIMENOrdering Facility: [facility] Address:[address] [place], [place] [address]Performed By: #### 57207-2 ####[facility] LABCLIA [id number] [place], [place] [address]Hoarrfntx RBC/100 WBC (Bld) [Ratio]0.0 /100 WBCNormal [facility] on above:Order Comment: Specimen Type: BLOOD SPECIMENOrdering Facility: [facility] Address:[address] [place], [place] [address]Performed By: #### 09158-4 ####[facility] LABCLIA [id number] [place], [place] [address]Zmzlumju mean volume (Bld) [Entitic vol]9.0 fLNormal9.0-12.7CWay[facility] on above:Order Comment: Specimen Type: BLOOD SPECIMENOrdering Facility: [facility] Address:[address] [place] [address] Performed By: #### [id number] ####[facility] LABCLIA [id number] [place], [place] [address]Lxryjjahp (Bld) [#/Vol]188 10*3/wHSsrqsw322-430RiqwjkswtSelect [facility] on above:Order Comment: Specimen Type: BLOOD SPECIMENOrdering Facility: [facility] Address:[address] [place], [place] [address]Performed By: #### 06752-1 ####[facility] LABCLIA [id number] [place], [place] [address]WHB (Bld) [#/Vol]3.47 10*6/uLLow3.90-5.20[facility] on above:Order Comment: Specimen Type: BLOOD SPECIMENOrdering Facility: [facility] Address:[address] [place], [place] [address]Performed By: #### 01667-6 ####[facility] LABIA [id number] [place], [place] [address]NHL (Bld) [#/Vol]3.17 10*3/uL Low3.70-11.00[facility] [place] on above:Order Comment: Specimen Type: BLOOD SPECIMENOrdering Facility: [facility] Address:[address] [place], [place] [address]Performed By: #### 54414-1 ####[facility] LABIA [id number] [place] [address] CNOVSPon 89-81-8879NBLSIFSygltbSuhlkqzgh Clinic ClevelandCNPNon 85-45-6678FWRB NormalMemorial Health System Marietta Memorial HospitalComprehensive metabolic 2000 panelon 12-14-2024 Albumin [Mass/Vol]4.1 g/dLNormal3.9-4.9C[facility] on above:Order Comment: Specimen Type: BLOOD SPECIMENOrdering Facility: [facility] Address:[address] [place], [place] [address]Performed By: #### 04482-5, 76113-4 ####[facility] LABCLIA [id number] [place], [place] [address]OFP [Catalytic activity/Vol]85 U/LNormal 34-123[facility] [place] on above:Order Comment: Specimen Type: BLOOD SPECIMENOrdering Facility: [facility] Address:[address] [place], [place] [address]Performed By: #### 29456-2, 44484-9 ####[facility] LABCLIA [id number] [place], [place] [address]PAP [Catalytic activity/Vol]12 U/LNormal7-38[facility] Comment on above:Order Comment: Specimen Type: BLOOD SPECIMENOrdering Facility: [facility] Address:[address] [place] [address] Performed By: #### 09912-6, 35099-3 ####[facility] LABCLIA [id number] [place], [place] [address]Hvcfh gap [Moles/Vol] 12 mmol/LNormal8-15[facility] HospitalCommclaren bay special care hospital on above:Order Comment: Specimen Type: BLOOD SPECIMENOrdering Facility: [facility] Address:[address] [place], [place] [address]Performed By: #### 21236-1, 00698-6 ####[facility] LABCLIA [id number] [place], [place] [address]FXW [Catalytic activity/Vol]11 U/JRga92-22DfpdwmawtSelect Medical Specialty Hospital - [place] on above:Order Comment: Specimen Type: BLOOD SPECIMENOrdering Facility: [facility] Address:[address] [place], [place] [address]Performed By: #### 85689-8, 56248-2 ####[facility] LABCLIA [id number] [place] [address] Bilirubin [Mass/Vol]0.2 mg/dLNormal0.2-1.3CMercy Health Perrysburg HospitalCommclaren bay special care hospital on above:Order Comment: Specimen Type: BLOOD SPECIMENOrdering Facility: [facility] Address:[address] [place], [place] [address]Performed By: #### 42795-2, 84366-2 ####[facility] LABCLIA [id number] [place], [place] [address]Affeeej [Mass/Vol]9.2 mg/dLNormal8.5-10.2 [facility] [place] on above:Order Comment: Specimen Type: BLOOD SPECIMENOrdering Facility: [facility] Address:[address] [place], [place] [address]Performed By: #### 37859-1, 14591-8 ####[facility] LABCLIA [id number] [place], [place] [address]Grnuolta [Moles/Vol]105 mmol/VRfoiln70-890LmtrbrwgfSelect Medical Specialty Hospital - [place] on above: Order Comment: Specimen Type: BLOOD SPECIMENOrdering Facility: [facility] Address:[address] [place], [place] [address]Performed By: #### 04500- 9, 22301-8 ####[facility] LABCLIA [id number] [place], [place] [address]KA1 [Moles/Vol]26 mmol/SVmqngf18-11AonkkbtkeSelect Medical Specialty Hospital - [place] on above:Order Comment: Specimen Type: BLOOD SPECIMENOrdering Facility: [facility] Address:[address] [place], [place] [address]Performed By: #### 12789-1, 54830-3 ####[facility] LABCLIA [id number] [place], [place] [address]Ijidpeowkc [Mass/Vol] 0.49 mg/dLLow0.58-0.96[facility] [place] on above:Order Comment: Specimen Type: BLOOD SPECIMENOrdering Facility: [facility] Address:[address] [place], [place] [address]Performed By: #### 87598-6, 94541-6 ####[facility] LABCLIA [id number] [place], [place] [address]Zgpydlpsgq and Glomerular filtration rate.predicted panel (S/P/Bld)103 mL/min/1.73m???Normal>=60[facility] [place] on above:Order Comment: Specimen Type: BLOOD SPECIMENOrdering Facility: [facility] Address:[address] [place], [place] [address]Result Comment: Estimated Glomerular Filtration Rate (eGFR) is calculated using the 2020 CKD-EPI creatinine equation. This equation utilizes serum creatinine, sex, and age as parameters. The creatinine assay has traceable calibration to isotope dilution- mass spectrometry. Refer to KDIGO guidelines for clinical interpretation. In patients with unstable renal function, e.g. those with acute kidney injury, the eGFR may not accurately reflect actual GFR.Performed By: #### 75121-8, 22450-3 ####[facility] LABCLIA [id number] [place], [place] [address]Kjomlgr [Mass/Vol]105 mg/fUQjcn28-28NizghphguSelect Medical Specialty Hospital - [place] on above:Order Comment: Specimen Type: BLOOD SPECIMENOrdering Facility: [facility] Address:[address] [place] [address]Sylses Comment: The [place] Diabetes Association (ADA) provides guidance for cutoff values for fasting glucose and random glucose. The ADA defines fasting as no caloric intake for at least 8 hours. Fasting plasma glucose results between 100 to 125 mg/dL indicate increased risk for diabetes (prediab etes).Fasting plasma glucose results greater than or equal to 126 mg/dL meet the criteria for diagnosis of diabetes. In the absence of unequivocal hyperglycemia, results should be confirmed by repeattesting. In a patient with classic symptoms of hyperglycemia or hyperglycemic crisis, random plasmaglucose results greater than or equal to 200 mg/dL meet the criteria for diagnosis of diabetes.Reference: Standards of Medical Care in Diabetes 2016, [place] [employer]. Diabetes Care. 2016.39(Suppl 1).Performed By: #### 03918- 9, 40682-8 ####[facility] LABCLIA [id number] [place], [place] [address]Byyhgzfyt [Moles/Vol]3.9 mmol/LNormal3.7-5.1 [facility] [place] on above:Order Comment: Specimen Type: BLOOD SPECIMENOrdering Facility: [facility] Address:[address] [place], [place] [address]Ylimomsdl By: #### 66057-5, ####[facility] LABCLIA [id number] [place], [place] [address]Pmscuxl [Mass/Vol]6.1 g/dLLow6.3-8.0[facility] [place] on above:Order Comment: Specimen Type: BLOOD SPECIMENOrdering Facility: [facility] Address:[address] [place], [place] [address]Performed By: #### 63889- 9, 10519-9 ####[facility] LABCLIA [id number] [place], [place] [address]Qgvubx [Moles/Vol]143 mmol/YDxixrw347-107TqzwnhywlSelect Medical Specialty Hospital - [place] on above:Order Comment: Specimen Type: BLOOD SPECIMENOrdering Facility: [facility] Address:[address] [place], [place] [address]Performed By: #### 87546-0, 16280-4 ####[facility] LABCLIA [id number] [place], [place] [address]Aqwi nitrogen [Mass/Vol]15 mg/dLNormal7-21[facility] [place] on above: Order Comment: Specimen Type: BLOOD SPECIMENOrdering Facility: [facility] Address:[address] [place], [place] [address]Performed By: #### 39966- 9, 67149-9 ####[facility] LABCLIA [id number] [place], [place] [address]Czzfodkwk SerPl-mCncon 25-48-7794Nwbmxrrjo [Mass/Vol]1.5 mg/dLLow1.7-2.3C[facility] on above:Order Comment: Specimen Type: BLOOD SPECIMENOrdering Facility: [facility] Address:[address] [place], [place] [address]Performed By: #### 13762- 9, 38605-7 ####[facility] LABCLIA [id number] [place], [place] [address]RHY W Auto Differential panel (Bld)on 11-23-2024 Basophils (Bld) [#/Vol]0.04 10*3/uLNormal<0.11C[facility] on above:Order Comment: Specimen Type: BLOOD SPECIMENOrdering Facility: [facility] Address:[address] [place] [address] Performed By: #### 56974-1 ####[facility] LABCLIA [id number] [place], [place] [address]Byuqqvivg/100 WBC (Bld)0.6 % NormalSelect Medical Specialty Hospital - [place] on above:Order Comment: Specimen Type: BLOOD SPECIMENOrdering Facility: [facility] Address:[address] [place], [place] [address]Performed By: #### 59201-8 ####[facility] LABCLIA [id number] [place] [address] Differential cell count method Nom (Bld)AutoNormalClevelPsychiatric hospital Comment on above:Order Comment: Specimen Type: BLOOD SPECIMENOrdering Facility: [facility] Address:[address] [place] [address] Performed By: #### 97129-9 ####[facility] LABCLIA [id number] [place], [place] [address]Hoahtjscycm (Bld) [#/Vol]0.06 10*3/uLNormal<0.46[facility] [place] on above:Order Comment: Specimen Type: BLOOD SPECIMENOrdering Facility: [facility] Address:[address] [place], [place] [address]Performed By: #### 07596-8 ####[facility] LABCLIA [id number] [place], [place] [address]Nlwimejnddq/100 WBC (Bld)0.9 %NormalSelect Medical Specialty Hospital - [place] on above:Order Comment: Specimen Type: BLOOD SPECIMENOrdering Facility: [facility] Address:[address] [place], [place] [address]Performed By: #### 55077-8 ####[facility] LABCLIA [id number] [place], [place] [address]Xtyewhozchj distribution width (RBC) [Ratio]21.2 %High11.5-15.0[facility] [place] on above:Order Comment: Specimen Type: BLOOD SPECIMENOrdering Facility: [facility] Address:[address] [place], [place] [address]Performed By: #### 28726- 8 ####[facility] LABCLIA [id number] [place], [place] [address]Rfbuhbxind (Bld) [Volume fraction]37.3 %Hjkiha67.0-46.0 [facility] [place] on above:Order Comment: Specimen Type: BLOOD SPECIMENOrdering Facility: [facility] Address:[address] [place], [place] [address]Performed By: #### 14562-8 ####[facility] LABCLIA [id number] [place], [place] [address]Zdbzfdsyzr (Bld) [Mass/Vol]11.9 g/mWNcrgcp42.5-15.5CWay[facility] on above: Order Comment: Specimen Type: BLOOD SPECIMENOrdering Facility: [facility] Address:[address] [place], [place] [address]Performed By: #### 94085- 8 ####[facility] LABCLIA [id number] [place], [place] [address]Hvbuxwoh granulocytes (Bld) [#/Vol]10*3/uLNormal<0.10 [facility] [place] on above:Order Comment: Specimen Type: BLOOD SPECIMENOrdering Facility: [facility] Address:[address] [place], [place] [address]Performed By: #### 96548-1 ####[facility] LABCLIA [id number] [place], [place] [address]Nfxjrtom granulocytes/100 WBC (Bld)0.3 %NormalSelect Medical Specialty Hospital - [place] on above: Order Comment: Specimen Type: BLOOD SPECIMENOrdering Facility: [facility] Address:[address] [place], [place] [address]Performed By: #### 25218- 8 ####[facility] LABCLIA [id number] [place], [place] [address]Phevfrxncxd (Bld) [#/Vol]0.78 10*3/uLLow1.00-4.00 [facility] [place] on above:Order Comment: Specimen Type: BLOOD SPECIMENOrdering Facility: [facility] Address:[address] [place], [place] [address]Performed By: #### 30138-0 ####[facility] LABCLIA [id number] [place], [place] [address]Mkoehmkjioo/100 WBC (Bld)12.1 %NormalSelect Medical Specialty Hospital - [place] on above:Order Comment: Specimen Type: BLOOD SPECIMENOrdering Facility: [facility] Address:[address] [place], [place] [address]Performed By: #### 61810-2 ####[facility] LABCLIA [id number] [place], [place] [address]PGH (RBC) [Entitic mass]31.6 rfDxtfid43.0-34.0[facility] [place] on above:Order Comment: Specimen Type: BLOOD SPECIMENOrdering Facility: [facility] Address:[address] [place], [place] [address]Performed By: #### 71270-8 ####[facility] LABCLIA [id number] [place], [place] [address]OWMO (RBC) [Mass/Vol]31.9 g/oDAhvvrz48.5-36.0[facility] [place] on above: Order Comment: Specimen Type: BLOOD SPECIMENOrdering Facility: [facility] Address:[address] [place], [place] [address]Performed By: #### 07358- 8 ####[facility] LABCLIA [id number] [place], [place] [address]SMO (RBC) [Entitic vol]98.9 tMAkzasp79.0-100.0[facility] [place] on above:Order Comment: Specimen Type: BLOOD SPECIMENOrdering Facility: [facility] Address:[address] [place], [place] [address]Performed By: #### 53629-1 ####[facility] LABCLIA [id number] [place], [place] [address]Wvkxpcops (Bld) [#/Vol]0.57 10*3/uLNormal<0.87[facility] [place] on above:Order Comment: Specimen Type: BLOOD SPECIMENOrdering Facility: [facility] Address:[address] [place], [place] [address]Performed By: #### 00376- 8 ####[facility] LABCLIA [id number] [place], [place] [address]Orwtfqoug/100 WBC (Bld)8.9 %NormalSelect Medical Specialty Hospital - [place] on above:Order Comment: Specimen Type: BLOOD SPECIMENOrdering Facility: [facility] Address:[address] [place], [place] [address]Performed By: #### 33804-0 ####[facility] LABCLIA [id number] [place], [place] [address]Jjclmlzyhyg (Bld) [#/Vol]4.96 10*3/uLNormal1.45-7.50[facility] [place] on above:Order Comment: Specimen Type: BLOOD SPECIMENOrdering Facility: [facility] Address:[address] [place], [place] [address]Performed By: #### 57183-8 ####[facility] LABCLIA [id number] [place], [place] [address]Grfhtrccldi/100 WBC (Bld)77.2 %NormalSelect Medical Specialty Hospital - [place] on above:Order Comment: Specimen Type: BLOOD SPECIMENOrdering Facility: [facility] Address:[address] [place], [place] [address]Performed By: #### 51295-1 ####[facility] LABCLIA [id number] [place], [place] [address]Rowxhffqu RBC (Bld) [#/Vol] 10*3/uLNormal<0.01[facility] [place] on above:Order Comment: Specimen Type: BLOOD SPECIMENOrdering Facility: [facility] Address:[address] [place], [place] [address]Performed By: #### 35694-0 ####[facility] LABCLIA [id number] [place], [place] [address]Ajdnnsmwy RBC/100 WBC (Bld) [Ratio]0.0 /100 WBCNormal [facility] [place] on above:Order Comment: Specimen Type: BLOOD SPECIMENOrdering Facility: [facility] Address:[address] [place], [place] [address]Performed By: #### 23857-2 ####[facility] LABIA [id number] [place], [place] [address]Fytjxcbf mean volume (Bld) [Entitic vol]9.3 fLNormal9.0-12.7C[facility] on above:Order Comment: Specimen Type: BLOOD SPECIMENOrdering Facility: [facility] Address:[address] [place] [address] Performed By: #### 03788-2 ####[facility] LABIA [id number] [place], [place] [address]Gcthanxth (Bld) [#/Vol]278 10*3/gFMchngw147-610MnqqwpvniSelect Medical Specialty [facility] [place] on above:Order Comment: Specimen Type: BLOOD SPECIMENOrdering Facility: [facility] Address:[address] [place], [place] [address]Performed By: #### 24905-4 ####[facility] LABIA [id number] [place], [place] [address]SNQ (Bld) [#/Vol]3.77 10*6/uLLow3.90-5.20[facility] [place] on above:Order Comment: Specimen Type: BLOOD SPECIMENOrdering Facility: [facility] Address:[address] [place], [place] [address]Performed By: #### 86081-8 ####[facility] LABCLIA [id number] [place], [place] [address]VXL (Bld) [#/Vol]6.43 10*3/uL Normal3.70-11.00[facility] [place] on above:Order Comment: Specimen Type: BLOOD SPECIMENOrdering Facility: [facility] Address:[address] [place], [place] [address]Performed By: #### 56586-5 ####[facility] LABCLIA [id number] [place], [place] [address]BHNOzg 20-51-0004PWDUMuufcpWbielfrer Clinic [place] CNOVSPon 80-76-0476EYKQQEZlofpbTsalsdqgp Clinic ClevelandComprehensive metabolic 2000 panelon 49-98-1249Yvrznnb [Mass/Vol]4.2 g/dLNormal3.9-4.9C[facility] on above:Order Comment: Specimen Type: BLOOD SPECIMENOrdering Facility: [facility] Address:[address] [place], [place] [address]Performed By: #### 26954-0, 77006-7 ####[facility]PAOSE[facility] LABCLIA [id number] [place], [place] [address]TLP [Catalytic activity/Vol]102 U/AEveiky07-917GxnyslwxjSelect Medical Specialty [facility] [place] on above:Order Comment: Specimen Type: BLOOD SPECIMENOrdering Facility: [facility] Address:[address] [place], [place] [address]Performed By: #### 51249- 9, 57279-4 ####[facility]MY[facility] LABCLIA [id number] [place], [place] [address]XLT [Catalytic activity/Vol]16 U/LNormal7-38 [facility] [place] on above:Order Comment: Specimen Type: BLOOD SPECIMENOrdering Facility: [facility] Address:[address] [place], [place] [address]Performed By: #### 68163-4, 48328-4 ####[facility] LABCLIA [id number] [place], [place] [address]Matky gap [Moles/Vol]12 mmol/LNormal8-15[facility] [place] on above: Order Comment: Specimen Type: BLOOD SPECIMENOrdering Facility: [facility] Address:[address] [place], [place] [address]Performed By: #### 63818- 9, 75336-4 ####[facility]JTIPAOSE[facility] LABCLIA [id number] [place], [place] [address]TSS [Catalytic activity/Vol]15 U/CQpxdak01-69 [facility] [place] on above:Order Comment: Specimen Type: BLOOD SPECIMENOrdering Facility: [facility] Address:[address] [place], [place] [address]Performed By: #### 45623-5, 93381-9 ####[facility] LABCLIA [id number] [place] [address] Bilirubin [Mass/Vol]0.3 mg/dLNormal0.2-1.3C[facility] on above:Order Comment: Specimen Type: BLOOD SPECIMENOrdering Facility: [facility] Address:[address] [place], [place] [address]Performed By: #### 00524-7, 04138-4 ####[facility] LABCLIA [id number] [place], [place] [address]Wmayetb [Mass/Vol]9.8 mg/dLNormal8.5-10.2 [facility] [place] on above:Order Comment: Specimen Type: BLOOD SPECIMENOrdering Facility: [facility] Address:[address] [place], [place] [address]Performed By: #### 92412-7, 42561-2 ####[facility] LABCLIA [id number] [place], [place] [address]Vyslnkmd [Moles/Vol]101 mmol/NQnkoec56-660LrjqgegahSelect Medical Specialty [facility] [place] on above: Order Comment: Specimen Type: BLOOD SPECIMENOrdering Facility: [facility] Address:[address] [place], [place] [address]Performed By: #### 36137- 9, 42432-1 ####[facility] LABCLIA [id number] [place], [place] [address]ER7 [Moles/Vol]26 mmol/DXakwdh73-58XbxmiawjnSelect Medical [facility] [place] on above:Order Comment: Specimen Type: BLOOD SPECIMENOrdering Facility: [facility] Address:[address] [place], [place] [address]Performed By: #### 89237-4, 90028-8 ####[facility] LABCLIA [id number] [place], [place] [address]Dizxwmjjyq [Mass/Vol] 0.53 mg/dLLow0.58-0.96[facility] [place] on above:Order Comment: Specimen Type: BLOOD SPECIMENOrdering Facility: [facility] Address:[address] [place], [place] [address]Performed By: #### 63968-8, 63454-6 ####[facility] LABCLIA [id number] [place], [place] [address]Aipwjlonrz and Glomerular filtration rate.predicted panel (S/P/Bld)101 mL/min/1.73m???Normal>=60[facility] [place] on above:Order Comment: Specimen Type: BLOOD SPECIMENOrdering Facility: [facility] Address:[address] [place], [place] [address]Result Comment: Estimated Glomerular Filtration Rate (eGFR) is calculated using the 2020 CKD-EPI creatinine equation. This equation utilizes serum creatinine, sex, and age as parameters. The creatinine assay has traceable calibration to isotope dilution- mass spectrometry. Refer to KDIGO guidelines for clinical interpretation. In patients with unstable renal function, e.g. those with acute kidney injury, the eGFR may not accurately reflect actual GFR.Performed By: #### 65236-4, 44507-7 ####[facility] LABCLIA [id number] [place], [place] [address]Bekthtd [Mass/Vol]97 mg/wSNuoisk96-53SbvskdizvSelect Medical Specialty [facility] [place] above:Order Comment: Specimen Type: BLOOD SPECIMENOrdering Facility: [facility] Address:[address] [place] [address]Fzisgs Comment: The [place] Diabetes [employer] (ADA) provides guidance for cutoff values for fasting glucose and random glucose. The ADA defines fasting as no caloric intake for at least 8 hours. Fasting plasma glucose results between 100 to 125 mg/dL indicate increased risk for diabetes (prediab etes).Fasting plasma glucose results greater than or equal to 126 mg/dL meet the criteria for diagnosis of diabetes. In the absence of unequivocal hyperglycemia, results should be confirmed by repeattesting. In a patient with classic symptoms of hyperglycemia or hyperglycemic crisis, random plasmaglucose results greater than or equal to 200 mg/dL meet the criteria for diagnosis of diabetes.Reference: Standards of Medical Care in Diabetes 2016, [place] [employer]. Diabetes Care. 2016.39(Suppl 1).Performed By: #### 35312- 9, 61979-0 ####[facility] LABCLIA [id number] [place], [place] [address]Nigzjwowl [Moles/Vol]4.5 mmol/LNormal3.7-5.1 [facility] [place] on above:Order Comment: Specimen Type: BLOOD SPECIMENOrdering Facility: [facility] Address:[address] [place], [place] [address]Phuzxtcys By: #### 02932-9, 60066-6 ####[facility] LABIA [id number] [place], [place] [address]Kobwdwq [Mass/Vol]7.0 g/dLNormal6.3-8.0[facility] [place] on above:Order Comment: Specimen Type: BLOOD SPECIMENOrdering Facility: [facility] Address:[address] [place] [address]Rnrkgvflq By: #### 63261- 9, 25211-7 ####[facility] LABCLIA [id number] [place], [place] [address]Snqlou [Moles/Vol]139 mmol/RMvfmgi282-347AljhyaurmSelect Medical Specialty [facility] [place] above:Order Comment: Specimen Type: BLOOD SPECIMENOrdering Facility: [facility] Address:[address] [place], [place] [address]Performed By: #### 60543-1, 55574-9 ####[facility] LABCLIA [id number] [place], [place] [address]Azvh nitrogen [Mass/Vol]20 mg/dLNormal7-21[facility] [place] on above: Order Comment: Specimen Type: BLOOD SPECIMENOrdering Facility: [facility] Address:[address] [place], [place] [address]Performed By: #### 96453- 9, 41762-0 ####[facility] LABIA [id number] [place], [place] [address]Siedzgrha SerPl-mCncon [id number] [Mass/Vol]1.8 mg/dLNormal1.7-2.3CWay[facility] on above:Order Comment: Specimen Type: BLOOD SPECIMENOrdering Facility: [facility] Address:[address] [place], [place] [address]Performed By: #### 40338- 9, 45589-6 ####[facility] LABCLIA [id number] [place], [place] [address]TCE SerPl-aCncon 48-64-2605FFC Qn2.680 m[IU]/L Normal0.270-4.200[facility] on above:Order Comment: Specimen Type: BLOOD SPECIMENOrdering Facility: [facility] Address:[address] [place], [place] [address]Performed By: #### 3016-3 ####[facility] LABCLIA [id number] CATRINA MAGUIRE [place] [id number] [place] OF AMERICACNPNon 74-90-9090FFHGOlaxse Memorial Health System Marietta Memorial HospitalGLUCOSE, BLOOD (POC)on 49-11-9135Lujnxhh [Mass/Vol]106 mg/rKShkmxjwv77 - 99 mg/dLPromedica Bay Park HospitalComment on above:Location:[facility], [address] [place] [address] , [place], [place], [address] The Accu-Chek Inform II glucose meter has [...] blood gas instrument) in the above situations. Interpretation and review of laboratory resultsAbnormalCSt. Elizabeth HospitalNM PET/CT SKULL-THIGH SUBQon 49-42-9517SI PET/CT SKULL-THIGH SUBQNormal [facility] Marietta Memorial HospitalPET+CT Guidance for localization of tumor of Skull base to mid-thigh-- W 18F-FDG Carmen 65-39-2247Tsktqtdf by Provider, [facility] [place] on 11/15/2024 4:39 PM EDT * * [...] * Uptake Time: 59 minutes * Radiopharmaceutical: G12-Knqgzzgvagsdzyevby (FDG) COMPARISON: No previous FDG PET/CT available [...] appendicular skeleton make it harder to evaluate (more content not included)...[place] ClinicRadiology Study observation (narrative)[facility]+CT Guidance for localization of tumor of Skull base to mid-thigh-- W 18F-FDG IVOrdered By: Ccf Provider on 45-11-5007Zjfasedfg ClinicUS venous duplex LE BIon 36-91-8623DU venous duplex [facility] Main [place] [id number] Ultrasound Report Signed Patient: Ofe Saravia MR#: [id number] [birth year] : 1955 Acct:[id number] Age/Sex: 69 / F ADM Date: 11/08/24 Loc: Room: Type: [facility] Attending Dr: Asya Clements JR, DO Ordering Provider: Asya Clements Jr, DO Date of Service: 11/08/24 US/US venous duplex JACOBO BI: R60.0 Copies to: Asya Clements Jr, DO BILATERAL LOWER EXTREMITY VENOUS DUPLEX INDICATION: Bilateral lower extremity edema. PROCEDURE: Color-flow duplex scanning is used to interrogate the deep venous system of the right and left lower extremities. The common femoral vein, femoral vein and popliteal vein show good compressibility with normal proximal and distal augmentation. The calf veins are compressible. US/US venous duplex LE BI IMPRESSION: NO EVIDENCE FOR DEEP VEIN THROMBOSIS OR PROXIMAL SUPERFICIAL THROMBOPHLEBITIS IN THE RIGHT OR LEFT LOWER EXTREMITY. Impression dictated by: David Mcclain MD11/08/2024 2:01 PM Dictation Location: [place] [address] Tech: Vicki Mauro Transcribed By: COLETTE 11/08/241400 Dictated By: David Mcclain MD 11/08/241400 Signed By: 11/08/241400[facility] Physician [facility] W Auto Differential panel (Bld)on 90-02-6796Acgorhpzv (Bld) [#/Vol]0.04 10*3/uLNINFPromedica Bay Park Hospital Basophils/100 WBC (Bld)0.7 %[facility] HospitalDifferential cell count method Nom (Bld)AutoCleveland ClinicEosinophils (Bld) [#/Vol]0.09 10*3/uLNINFPromedica Bay Park HospitalEosinophils/100 WBC (Bld)1.5 %[facility] HospitalErythrocyte distribution width (RBC) [Ratio]21.3 %High11.5 - 15.0 %[facility] HospitalHematocrit (Bld) [Volume fraction]34.2 %Low36.0 - 46.0 %[facility] HospitalHemoglobin (Bld) [Mass/Vol]10.7 g/dLLow11.5 - 15.5 g/dLPromedica Bay Park HospitalImmature granulocytes (Bld) [#/Vol]0.03 10*3/uLNINFPromedica Bay Park HospitalImmature granulocytes/100 WBC (Bld) 0.5 %[facility] HospitalInterpretation and review of laboratory resultsAbnormal [facility] Park HospitalLymphocytes (Bld) [#/Vol]0.78 10*3/uLLowPromedica Bay Park Hospital Lymphocytes/100 WBC (Bld)12.9 %[facility] HospitalMCH (RBC) [Entitic mass]30.1 pg 26.0 - 34.0 pgCleveland Gillette Children'S Specialty HealthcareMCHC (RBC) [Mass/Vol]31.3 g/dL30.5 - 36.0 g/dL [facility] HospitalV (RBC) [Entitic vol]96.3 fL80.0 - 100.0 fLCTriHealth Monocytes (Bld) [#/Vol]0.74 10*3/uLNINFPromedica Bay Park HospitalMonocytes/100 WBC (Bld) 12.3 %[facility] HospitalNeutrophils (Bld) [#/Vol]4.35 10*3/uLPromedica Bay Park Hospital Neutrophils/100 WBC (Bld)72.1 %[facility] HospitalNucleated RBC (Bld) [#/Vol]NINF [facility] HospitalNucleated RBC/100 WBC (Bld) [Ratio]0 %/100 WBCPromedica Bay Park Hospital Platelet mean volume (Bld) [Entitic vol]8.8 fLLow9.0 - 12.7 fLCTriHealth Platelets (Bld) [#/Vol]347 10*3/[facility] General HospitalRBC (Bld) [#/Vol]3.55 10*6/uL Low3.90 - 5.20 m/[facility] General HospitalWBC (Bld) [#/Vol]6.03 10*3/uLMemorial Health System Marietta Memorial Hospital ClinicBasophils (Bld) [#/Vol]0.04 10*3/uLNormal<0.11CWay[facility] on above:Order Comment: Specimen Type: BLOOD SPECIMENOrdering Facility: [facility] Address:[address] [place], [place] [address]Performed By: #### 42424-8 ####[facility] LABIA [id number] [place], [place] [address]Iclvgnskw/100 WBC (Bld)0.7 % NormalSelect [facility] on above:Order Comment: Specimen Type: BLOOD SPECIMENOrdering Facility: [facility] Address:[address] [place], [place] [address]Performed By: #### 14953-7 ####[facility] LABIA [id number] [place] [address] Differential cell count method Nom (Bld)AutoNormalCMercy Health Perrysburg Hospital Comment on above:Order Comment: Specimen Type: BLOOD SPECIMENOrdering Facility: [facility] Address:[address] [place] [address] Performed By: #### 14696-5 ####[facility] LABCLIA [id number] [place], [place] [address]Zlgabtjiybt (Bld) [#/Vol]0.09 10*3/uLNormal<0.46[facility] on above:Order Comment: Specimen Type: BLOOD SPECIMENOrdering Facility: [facility] Address:[address] [place], [place] [address]Performed By: #### 84046-4 ####[facility] LABCLIA [id number] [place], [place] [address]Mslaxdqgghx/100 WBC (Bld)1.5 %NormalSelect Medical Specialty [facility] on above:Order Comment: Specimen Type: BLOOD SPECIMENOrdering Facility: [facility] Address:[address] [place], [place] [address]Performed By: #### 74859-4 ####[facility] LABIA [id number] [place], [place] [address]Zhbsyvrlygk distribution width (RBC) [Ratio]21.3 %High11.5-15.0[facility] on above:Order Comment: Specimen Type: BLOOD SPECIMENOrdering Facility: [facility] Address:[address] [place], [place] [address]Performed By: #### 68103- 8 ####[facility] LABCLIA [id number] [place], [place] [address]Zlqbiqvtpc (Bld) [Volume fraction]34.2 %Low36.0-46.0 [facility] on above:Order Comment: Specimen Type: BLOOD SPECIMENOrdering Facility: [facility] Address:[address] [place], [place] [address]Performed By: #### 84544-1 ####[facility] LABCLIA [id number] [place], [place] [address]Bvrmzdoeiy (Bld) [Mass/Vol]10.7 g/dLLow11.5-15.5CWay[facility] HealthCare [facility] on above:Order Comment: Specimen Type: BLOOD SPECIMENOrdering Facility: [facility] Address:[address] [place], [place] [address]Performed By: #### 13972- 8 ####[facility] LABCLIA [id number] [place], [place] [address]Myhunvvb granulocytes (Bld) [#/Vol]0.03 10*3/uLNormal <0.10[facility] on above:Order Comment: Specimen Type: BLOOD SPECIMENOrdering Facility: [facility] Address:[address] [place], [place] [address]Performed By: #### 51901-3 ####[facility] LABCLIA [id number] [place], [place] [address]Eymwoczi granulocytes/100 WBC (Bld)0.5 %NormalSelect Medical Specialty [facility] on above: Order Comment: Specimen Type: BLOOD SPECIMENOrdering Facility: [facility] Address:[address] [place], [place] [address]Performed By: #### 75396- 8 ####[facility] LABCLIA [id number] [place], [place] [address]Mzqsgtsrlmu (Bld) [#/Vol]0.78 10*3/uLLow1.00-4.00 [facility] on above:Order Comment: Specimen Type: BLOOD SPECIMENOrdering Facility: [facility] Address:[address] [place], [place] [address]Performed By: #### 41284-4 ####[facility] LABIA [id number] [place], [place] [address]Bfjzgucklsn/100 WBC (Bld)12.9 %NormalSelect Medical Specialty [facility] on above:Order Comment: Specimen Type: BLOOD SPECIMENOrdering Facility: [facility] Address:[address] [place], [place] [address]Performed By: #### 91131-9 ####[facility] LABCLIA [id number] [place], [place] [address]QGX (RBC) [Entitic mass]30.1 bbQtorji50.0-34.0[facility] on above:Order Comment: Specimen Type: BLOOD SPECIMENOrdering Facility: [facility] Address:[address] [place], [place] [address]Performed By: #### 60352-7 ####[facility] LABIA [id number] [place], [place] [address]AUDL (RBC) [Mass/Vol]31.3 g/sUYqvjoj19.5-36.0[facility] on above: Order Comment: Specimen Type: BLOOD SPECIMENOrdering Facility: [facility] Address:[address] [place], [place] [address]Performed By: #### 58432- 8 ####[facility] LABIA [id number] [place], [place] [address]QJJ (RBC) [Entitic vol]96.3 fHCoxmdz57.0-100.0[facility] on above:Order Comment: Specimen Type: BLOOD SPECIMENOrdering Facility: [facility] Address:[address] [place], [place] [address]Performed By: #### 10787-2 ####[facility] LABIA [id number] [place], [place] [address]Etpmnlyys (Bld) [#/Vol]0.74 10*3/uLNormal<0.87[facility] on above:Order Comment: Specimen Type: BLOOD SPECIMENOrdering Facility: [facility] Address:[address] [place], [place] [address]Performed By: #### 29724- 8 ####[facility] LABCLIA [id number] [place], [place] [address]Azfepdamp/100 WBC (Bld)12.3 %NormalSelect Medical Specialty [facility] [place] on above:Order Comment: Specimen Type: BLOOD SPECIMENOrdering Facility: [facility] Address:[address] [place], [place] [address]Performed By: #### 71865-3 ####[facility] LABCLIA [id number] [place], [place] [address]Rtnfvbkevcy (Bld) [#/Vol]4.35 10*3/uLNormal1.45-7.50[facility] on above:Order Comment: Specimen Type: BLOOD SPECIMENOrdering Facility: [facility] Address:[address] [place], [place] [address]Performed By: #### 27265-6 ####[facility] LABCLIA [id number] [place], [place] [address]Bhjrphitlzv/100 WBC (Bld)72.1 %NormalSelect Medical Specialty Hospital [facility] on above:Order Comment: Specimen Type: BLOOD SPECIMENOrdering Facility: [facility] Address:[address] [place], [place] [address]Performed By: #### 54727-2 ####[facility] LABCLIA [id number] [place], [place] [address]Rolmiqxcq RBC (Bld) [#/Vol] 10*3/uLNormal<0.01[facility] on above:Order Comment: Specimen Type: BLOOD SPECIMENOrdering Facility: [facility] Address:[address] [place], [place] [address]Performed By: #### 05181-8 ####[facility] LABCLIA [id number] [place], [place] [address]Djqcrgezz RBC/100 WBC (Bld) [Ratio]0.0 /100 WBCNormal [facility] on above:Order Comment: Specimen Type: BLOOD SPECIMENOrdering Facility: [facility] Address:[address] [place], [place] [address]Performed By: #### 56860-4 ####[facility] LABCLIA [id number] [place], [place] [address]Bdiuxagu mean volume (Bld) [Entitic vol]8.8 fLLow9.0-12.7CWay[facility] HealthCare [facility] on above:Order Comment: Specimen Type: BLOOD SPECIMENOrdering Facility: [facility] Address:[address] [place], [place] [address]Performed By: #### 37476-9 ####[facility] LABCLIA [id number] [place], [place] [address]Ngarzzcus (Bld) [#/Vol]347 10*3/eWCjvjmw940-541SlytofxynSelect Medical Specialty [facility] on above:Order Comment: Specimen Type: BLOOD SPECIMENOrdering Facility: [facility] Address:[address] [place], [place] [address]Performed By: #### 19436-8 ####[facility] LABCLIA [id number] [place], [place] [address]BJS (Bld) [#/Vol]3.55 10*6/uLLow3.90-5.20[facility] on above:Order Comment: Specimen Type: BLOOD SPECIMENOrdering Facility: [facility] Address:[address] [place], [place] [address]Performed By: #### 38033- 8 ####[facility] LABCLIA [id number] [place], [place] [address]PUF (Bld) [#/Vol]6.03 10*3/uLNormal3.70-11.00[facility] on above:Order Comment: Specimen Type: BLOOD SPECIMENOrdering Facility: [facility] Address:[address] [place], [place] [address]Performed By: #### 44488-1 ####[facility] LABCLIA [id number] [place], [place] [address]ZNJJJTmf 68-50-1628XZDNBUPjkxehLthiwvewj [facility] ClevelandCNPNon 68-28-9130EGOMQwbbzr [facility] Memorial HospitalComprehensive metabolic 2000 panelOrdered By: Ofe Luke on 92-40-4984Sgjdeqz [Mass/Vol]3.9 g/dL3.9 - 4.9 g/dLCletrumbull memorial hospital ClinicALP [Catalytic activity/Vol]102 U/L34 - 123 U/LCleveland ClinicALT [Catalytic activity/Vol]15 U/L7 - 38 U/LCleveland ClinicAnion gap [Moles/Vol]11 mmol/L8 - 15 mmol/LCleveland ClinicAST [Catalytic activity/Vol]14 U/L13 - 35 U/LCleveland ClinicBilirubin [Mass/Vol]0.2 mg/dL0.2 - 1.3 mg/dLCletrumbull memorial hospital ClinicCalcium [Mass/Vol]9.9 mg/dL8.5 - 10.2 mg/dLAlbuquerque ClinicChloride [Moles/Vol]102 mmol/L98 - 107 mmol/LCleveland ClinicCO2 [Moles/Vol]28 mmol/L22 - 30 mmol/L [place] ClinicCreatinine [Mass/Vol]0.52 mg/dLLow0.58 - 0.96 mg/dLAlbuquerque ClinicGFR/1.73 sq M.predicted among non-blacks MDRD (S/P/Bld) [Vol rate/Area]101 mL/min/{1.73_m2}- PINFCleveland Gillette Children'S Specialty HealthcareComment on above:Estimated Glomerular Filtration Rate (eGFR) is calculated using the 2020 CKD-EPI creatinine equation. This equation utilizes serum creatinine, sex, and age as parameters. The creatinine assay has traceable calibration to isotope dilution-mass spectrometry. Refer to KDIGO guidelines for clinical interpretation. In patients with unstable renal function, e.g. those with acute kidney injury, the eGFRmay not accurately reflect actual GFR.Glucose [Mass/Vol]109 mg/tZLlmv18 - 99 mg/dL [facility] Main Campusment on above:The [place] Diabetes Association (ADA) provides guidance for cutoff values for fasting glucose andrandom glucose. The ADA defines fasting as no caloric intake for at least 8 hours. Fasting plasma gl ucose results between 100 to 125 mg/dL indicate [...] Standards of Medical Care in Diabetes 2016, [place] Diabetes Association. Diabetes Care. 2016.39(Suppl 1). Interpretation and review of laboratory resultsAbnormalCleveland ClinicPotassium [Moles/Vol]4.4 mmol/L3.7 - 5.1 mmol/LClevelatrium health university city ClinicProtein [Mass/Vol]6.9 g/dL 6.3 - 8.0 g/dLMercy Health – The Jewish Hospitalodium [Moles/Vol]141 mmol/L136 - 144 mmol/L [facility] Park HospitalUrea nitrogen [Mass/Vol]16 mg/dL7 - 21 mg/dLParkview Health Bryan HospitalComprehensive metabolic 2000 panelon 09-38-0796Kvydmjp [Mass/Vol]3.9 g/dLNormal3.9-4.9CWay[facility]Care [facility] on above:Order Comment: Specimen Type: BLOOD SPECIMENOrdering Facility: [facility] Address:[address] [place] [address]Xawtmlbbk By: #### 49445- 8, ####[facility] LABCLIA [id number] [place], [place] [address]PII [Catalytic activity/Vol]102 U/XVrmjkm46-443 [facility] on above:Order Comment: Specimen Type: BLOOD SPECIMENOrdering Facility: [facility] Address:[address] [place], [place] [address]Performed By: #### 42938-5, ####[facility] LABCLIA [id number] [place], [place] [address]DMG [Catalytic activity/Vol]15 U/LNormal7-38[facility] on above:Order Comment: Specimen Type: BLOOD SPECIMENOrdering Facility: [facility] Address:[address] [place], [place] [address]Performed By: #### 99061-5, ####[facility]PAOSE[facility] LABCLIA [id number] [place], [place] [address]Eoxve gap [Moles/Vol]11 mmol/LNormal8-15 [facility] on above:Order Comment: Specimen Type: BLOOD SPECIMENOrdering Facility: [facility] Address:[address] [place], [place] [address]Performed By: #### 80684-4, ####[facility]PAOSE[facility] LABCLIA [id number] [place], [place] [address]EDX [Catalytic activity/Vol]14 U/HAkmynj11-41BchhbchaiSelect Medical Specialty Hospital [facility] [place] on above:Order Comment: Specimen Type: BLOOD SPECIMENOrdering Facility: [facility] Address:[address] [place], [place] [address]Performed By: #### 53431-8, ####[facility]ENTEROSE[facility] LABCLIA [id number] [place], [place] [address]Bjikujwpy [Mass/Vol]0.2 mg/dLNormal0.2-1.3 [facility] on above:Order Comment: Specimen Type: BLOOD SPECIMENOrdering Facility: [facility] Address:[address] [place], [place] [address]Performed By: #### 61902-9, ####[facility] LABCLIA [id number] [place], [place] [address]Faknsrm [Mass/Vol]9.9 mg/dLNormal8.5-10.2CWayne HealthCare [facility] on above: Order Comment: Specimen Type: BLOOD SPECIMENOrdering Facility: [facility] Address:[address] [place], [place] [address]Performed By: #### 88498- 8, ####[facility] LABCLIA [id number] [place], [place] [address]Btujhcvo [Moles/Vol]102 mmol/OAbvtaw65-037QqgrkptbmSelect Medical [facility] on above:Order Comment: Specimen Type: BLOOD SPECIMENOrdering Facility: [facility] Address:[address] [place], [place] [address]Performed By: #### 73775-6, ####[facility] LABCLIA [id number] [place], [place] [address]NM2 [Moles/Vol]28 mmol/GUenckk76-00GyiksptnxSelect [facility] on above:Order Comment: Specimen Type: BLOOD SPECIMENOrdering Facility: [facility] Address:[address] [place], [place] [address]Performed By: #### 51026- 8, 45340-9 ####[facility] LABCLIA [id number] [place], [place] [address]Cyiiiiaqeh [Mass/Vol]0.52 mg/dLLow0.58-0.96 [facility] on above:Order Comment: Specimen Type: BLOOD SPECIMENOrdering Facility: [facility] Address:[address] [place], [place] [address]Performed By: #### 12278-3, ####[facility] LABCLIA [id number] [place] [address] Creatinine and Glomerular filtration rate.predicted panel (S/P/Bld)101 mL/min/1.73m???Normal>=60[facility] on above:Order Comment: Specimen Type: BLOOD SPECIMENOrdering Facility: [facility] Address:[address] [place], [place] [address]Result Comment: Estimated Glomerular Filtration Rate (eGFR) is calculated using the 2020 CKD-EPI cre atinine equation. This equation utilizes serum creatinine, sex, and age as parameters. The creatinine assay has traceable calibration to isotope dilution- mass spectrometry. Refer to KDIGO guidelines for clinical interpretation. In patients with unstable renal function, e.g. those with acute kidney injury, the eGFR may not accurately reflect actual GFR.Performed By: #### 88810-2, 20336-8 ####[facility] LABCLIA [id number] [place], [place] [address]Llgrzhx [Mass/Vol]109 mg/wNNtse62-72SofqgbcvuSelect Medical Specialty [facility] on above:Order Comment: Specimen Type: BLOOD SPECIMENOrdering Facility: [facility] Address:[address] [place] [address]Olxlle Comment: The [place] Diabetes Association (ADA) provides guidance for cutoff values for fasting glucose and random glucose. The ADA defines fasting as no caloric intake for at least 8 hours. Fasting plasma glucose results between 100 to 125 mg/dL indicate increased risk for diabetes (prediab etes).Fasting plasma glucose results greater than or equal to 126 mg/dL meet the criteria for diagnosis of diabetes. In the absence of unequivocal hyperglycemia, results should be confirmed by repeattesting. In a patient with classic symptoms of hyperglycemia or hyperglycemic crisis, random plasmaglucose results greater than or equal to 200 mg/dL meet the criteria for diagnosis of diabetes.Reference: Standards of Medical Care in Diabetes 2016, [place] Diabetes Association. Diabetes Care. 2016.39(Suppl 1).Performed By: #### 59427- 8, ####[facility] LABCLIA [id number] [place], [place] [address]Gbpsdcvyn [Moles/Vol]4.4 mmol/LNormal3.7-5.1 [facility] on above:Order Comment: Specimen Type: BLOOD SPECIMENOrdering Facility: [facility] Address:[address] [place], [place] [address]Juhzuldev By: #### 98839-8, ####[facility] LABCLIA [id number] [place], [place] [address]Nwszjnf [Mass/Vol]6.9 g/dLNormal6.3-8.0[facility] on above:Order Comment: Specimen Type: BLOOD SPECIMENOrdering Facility: [facility] Address:[address] [place] [address]Dqvdgwvuj By: #### 98175- 8, 98942-6 ####[facility] LABCLIA [id number] [place], [place] [address]Yicxue [Moles/Vol]141 mmol/OImcxvg666-875TvxuyukceSelect Medical Specialty [facility] on above:Order Comment: Specimen Type: BLOOD SPECIMENOrdering Facility: [facility] Address:[address] [place], [place] [address]Performed By: #### 05685-9, 49817-2 ####[facility] LABCLIA [id number] [place], [place] [address]Iwnt nitrogen [Mass/Vol]16 mg/dLNormal7-21[facility] on above: Order Comment: Specimen Type: BLOOD SPECIMENOrdering Facility: [facility] Address:[address] [place], [place] [address]Performed By: #### 49917- 8, ####[facility] LABCLIA [id number] [place], [place] [address]RCDFXZMZDha 31-33-8854Saukljdvq [Mass/Vol]1.7 mg/dL 1.7 - 2.3 mg/dLPromedica Bay Park HospitalMagnesium SerPl-mCncon 18-26-5722Raczmtofp [Mass/Vol]1.7 mg/dLNormal1.7-2.3CWay[facility] on above:Order Comment: Specimen Type: BLOOD SPECIMENOrdering Facility: [facility] Address:[address] [place] [address]Nkyxtjwkl By: #### 46561- 8, 50291-1 ####[facility] LABCLIA [id number] [place], [place] [address]Rvozeldoe [Mass/Vol]on 48-04-2633Xcbbzttvnpluxq and review of laboratory resultsNormalCGeorgetown [facility]al [facility] W Auto Differential panel (Bld)on 11-13-4855Mobszdwey (Bld) [#/Vol]0.07 10*3/uLNormal <0.11CWay[facility] on above:Order Comment: Specimen Type: BLOOD SPECIMENOrdering Facility: [facility] Address:[address] [place], [place] [address]Performed By: #### [id number] ####[facility] LABCLIA [id number] [place] [address] Basophils/100 WBC (Bld)0.5 %NormalSelect Medical Specialty [facility] on above: Order Comment: Specimen Type: BLOOD SPECIMENOrdering Facility: [facility] Address:[address] [place], [place] [address]Performed By: #### [id number] ####[facility] LABCLIA [id number] [place], [place] [address]Xfvrkzpvcrwj cell count method Nom (Bld)AutoNormal [facility] on above:Order Comment: Specimen Type: BLOOD SPECIMENOrdering Facility: [facility] Address:[address] [place], [place] [address]Performed By: #### 06706-9 ####[facility] LABCLIA [id number] [place], [place] [address]Nvddcefjwoa (Bld) [#/Vol]0.25 10*3/uLNormal<0.46[facility] on above: Order Comment: Specimen Type: BLOOD SPECIMENOrdering Facility: [facility] Address:[address] [place], [place] [address]Performed By: #### 49629- 8 ####[facility] LABCLIA [id number] [place], [place] [address]Pvyqkhjiajl/100 WBC (Bld)1.7 %NormalSelect Medical Specialty [facility] on above:Order Comment: Specimen Type: BLOOD SPECIMENOrdering Facility: [facility] Address:[address] [place], [place] [address]Performed By: #### 38736-4 ####[facility] LABIA [id number] [place], [place] [address]Sodvxubdbws distribution width (RBC) [Ratio]17.8 %High11.5-15.0[facility] on above:Order Comment: Specimen Type: BLOOD SPECIMENOrdering Facility: [facility] Address:[address] [place], [place] [address]Performed By: #### 62035- 8 ####[facility] LABIA [id number] [place], [place] [address]Xhdhzvvlvp (Bld) [Volume fraction]30.8 %Low36.0-46.0 [facility] on above:Order Comment: Specimen Type: BLOOD SPECIMENOrdering Facility: [facility] Address:[address] [place], [place] [address]Performed By: #### 38161-7 ####[facility] LABIA [id number] [place], [place] [address]Iqjmhldqxz (Bld) [Mass/Vol]9.9 g/dLLow11.5-15.5C[facility] on above:Order Comment: Specimen Type: BLOOD SPECIMENOrdering Facility: [facility] Address:[address] [place], [place] [address]Performed By: #### 05918- 8 ####[facility] LABIA [id number] [place], [place] [address]Czjbarbm granulocytes (Bld) [#/Vol]0.06 10*3/uLNormal <0.10[facility] on above:Order Comment: Specimen Type: BLOOD SPECIMENOrdering Facility: [facility] Address:[address] [place], [place] [address]Performed By: #### 03613-2 ####[facility] LABIA [id number] [place], [place] [address]Nspucjdc granulocytes/100 WBC (Bld)0.4 %NormalSelect Medical Specialty [facility] on above: Order Comment: Specimen Type: BLOOD SPECIMENOrdering Facility: [facility] Address:[address] [place], [place] [address]Performed By: #### 00501- 8 ####[facility] LABCLIA [id number] [place], [place] [address]Ukjffvfrago (Bld) [#/Vol]0.72 10*3/uLLow1.00-4.00 [facility] on above:Order Comment: Specimen Type: BLOOD SPECIMENOrdering Facility: [facility] Address:[address] [place], [place] [address]Performed By: #### 17289-7 ####[facility] LABCLIA [id number] [place], [place] [address]Vrstakwmbtz/100 WBC (Bld)5.0 %NormalSelect Medical Specialty [facility] on above:Order Comment: Specimen Type: BLOOD SPECIMENOrdering Facility: [facility] Address:[address] [place], [place] [address]Performed By: #### 38820-3 ####[facility] LABCLIA [id number] [place], [place] [address]AUX (RBC) [Entitic mass]28.9 vwFsavbs34.0-34.0[facility] on above:Order Comment: Specimen Type: BLOOD SPECIMENOrdering Facility: [facility] Address:[address] [place], [place] [address]Performed By: #### 60945-5 ####[facility] LABCLIA [id number] [place], [place] [address]BWPI (RBC) [Mass/Vol]32.1 g/nEJqncnc93.5-36.0[facility] on above: Order Comment: Specimen Type: BLOOD SPECIMENOrdering Facility: [facility] Address:[address] [place], [place] [address]Performed By: #### 25298- 8 ####[facility] LABCLIA [id number] [place], [place] [address]LYR (RBC) [Entitic vol]90.1 fVRjsyrc60.0-100.0[facility] on above:Order Comment: Specimen Type: BLOOD SPECIMENOrdering Facility: [facility] Address:[address] [place], [place] [address]Performed By: #### 86269-7 ####[facility] LABCLIA [id number] [place], [place] [address]Utsxymcka (Bld) [#/Vol]1.03 10*3/uLHigh<0.87[facility] on above:Order Comment: Specimen Type: BLOOD SPECIMENOrdering Facility: [facility] Address:[address] [place], [place] [address]Performed By: #### 07492- 8 ####[facility] LABCLIA [id number] [place], [place] [address]Qacsmrggp/100 WBC (Bld)7.2 %NormalSelect Medical [facility]ty [facility] on above:Order Comment: Specimen Type: BLOOD SPECIMENOrdering Facility: [facility] Address:[address] [place], [place] [address]Performed By: #### 79204-5 ####[facility] LABCLIA [id number] [place], [place] [address]Knnxcgdavxo (Bld) [#/Vol]12.23 10*3/uLHigh1.45-7.50[facility] on above:Order Comment: Specimen Type: BLOOD SPECIMENOrdering Facility: [facility] Address:[address] [place], [place] [address]Performed By: #### 10870-5 ####[facility] LABCLIA [id number] [place], [place] [address]Oyqtocpxizq/100 WBC (Bld)85.2 %NormalSelect Medical [facility]ty [facility] on above:Order Comment: Specimen Type: BLOOD SPECIMENOrdering Facility: [facility] Address:[address] [place], [place] [address]Performed By: #### 25164-7 ####[facility] LABCLIA [id number] [place], [place] [address]Iuctdpdgz RBC (Bld) [#/Vol] 10*3/uLNormal<0.01[facility] on above:Order Comment: Specimen Type: BLOOD SPECIMENOrdering Facility: [facility] Address:[address] [place], [place] [address]Performed By: #### 69550-8 ####[facility] LABCLIA [id number] [place], [place] [address]Bizspxzdm RBC/100 WBC (Bld) [Ratio]0.0 /100 WBCNormal [facility] on above:Order Comment: Specimen Type: BLOOD SPECIMENOrdering Facility: [facility] Address:[address] [place], [place] [address]Performed By: #### 95230-2 ####[facility] LABCLIA [id number] [place], [place] [address]Stniubwt mean volume (Bld) [Entitic vol]8.9 fLLow9.0-12.7CWay[facility] on above:Order Comment: Specimen Type: BLOOD SPECIMENOrdering Facility: [facility] Address:[address] [place], [place] [address]Performed By: #### 41881-1 ####[facility] LABCLIA [id number] [place], [place] [address]Qffrjubqc (Bld) [#/Vol]422 10*3/kYFjvs898-697VwdolkmeaSelect Medical Specialty Hospital [facility] on above:Order Comment: Specimen Type: BLOOD SPECIMENOrdering Facility: [facility] Address:[address] [place], [place] [address]Performed By: #### 15803-5 ####[facility] LABCLIA [id number] [place], [place] [address]RQB (Bld) [#/Vol]3.42 10*6/uLLow3.90-5.20[facility] on above:Order Comment: Specimen Type: BLOOD SPECIMENOrdering Facility: [facility] Address:[address] [place], [place] [address]Performed By: #### 85020- 8 ####[facility] LABCLIA [id number] [place], [place] [address]DEI (Bld) [#/Vol]14.36 10*3/uLHigh3.70-11.00[facility] on above:Order Comment: Specimen Type: BLOOD SPECIMENOrdering Facility: [facility] Address:[address] [place], [place] [address]Performed By: #### 59011-1 ####[facility] LABIA [id number] [place], [place] [address]YAEXFYla 25-25-0970HLVDRBPzlyuiPeidjnfba Clinic ClevelandComprehensive metabolic 2000 panelon 57-93-3332Rcjaakf [Mass/Vol]3.5 g/dLLow3.9-4.9CMer[facility] Comment on above:Order Comment: Specimen Type: BLOOD SPECIMENOrdering Facility: [facility] Address:[address] [place] [address] Performed By: #### 04186-0, 93022-3 ####[facility] LABCLIA [id number] [place], [place] [address]GBK [Catalytic activity/Vol]121 U/WFnkhsy34-253KztznkvqbSelect Medical [facility]ty [facility] on above:Order Comment: Specimen Type: BLOOD SPECIMENOrdering Facility: [facility] Address:[address] [place], [place] [address]Performed By: #### 82307- 9, 55359-7 ####[facility] LABCLIA [id number] [place], [place] [address]LUO [Catalytic activity/Vol]33 U/LNormal7-38 [facility] on above:Order Comment: Specimen Type: BLOOD SPECIMENOrdering Facility: [facility] Address:[address] [place], [place] [address]Performed By: #### 70754-6, 86261-8 ####[facility] LABCLIA [id number] [place], [place] [address]Rowtz gap [Moles/Vol]12 mmol/LNormal8-15[facility] on above: Order Comment: Specimen Type: BLOOD SPECIMENOrdering Facility: [facility] Address:[address] [place], [place] [address]Performed By: #### 62227- 9, 42296-7 ####[facility] LABCLIA [id number] [place], [place] [address]NNZ [Catalytic activity/Vol]15 U/GLzrvku06-19 [facility] on above:Order Comment: Specimen Type: BLOOD SPECIMENOrdering Facility: [facility] Address:[address] [place], [place] [address]Performed By: #### 45076-4, 33640-9 ####[facility] LABCLIA [id number] [place] [address] Bilirubin [Mass/Vol]0.5 mg/dLNormal0.2-1.3C[facility] on above:Order Comment: Specimen Type: BLOOD SPECIMENOrdering Facility: [facility] Address:[address] [place], [place] [address]Performed By: #### 90124-2, 84821-7 ####[facility] LABCLIA [id number] [place], [place] [address]Ilfqyjr [Mass/Vol]9.1 mg/dLNormal8.5-10.2 [facility] on above:Order Comment: Specimen Type: BLOOD SPECIMENOrdering Facility: [facility] Address:[address] [place], [place] [address]Performed By: #### 70459-5, 16897-3 ####[facility] LABCLIA [id number] [place], [place] [address]Etmlovzq [Moles/Vol]97 mmol/TBuy10-921GehbdoxfhSelect Medical Specialty [facility] on above:Order Comment: Specimen Type: BLOOD SPECIMENOrdering Facility: [facility] Address:[address] [place], [place] [address]Performed By: #### 09579- 9, 95320-9 ####[facility] LABCLIA [id number] [place], [place] [address]WX7 [Moles/Vol]26 mmol/YKoxgiz19-48MktlxtfcySelect Medical Specialty [facility] on above:Order Comment: Specimen Type: BLOOD SPECIMENOrdering Facility: [facility] Address:[address] [place], [place] [address]Performed By: #### 89602-6, 14512-7 ####[facility] LABCLIA [id number] [place], [place] [address]Lwfoqfuava [Mass/Vol] 0.52 mg/dLLow0.58-0.96[facility] on above:Order Comment: Specimen Type: BLOOD SPECIMENOrdering Facility: [facility] Address:[address] [place], [place] [address]Performed By: #### 02813-5, 80142-0 ####[facility] LABCLIA [id number] [place], [place] [address]Jqaeruqfnl and Glomerular filtration rate.predicted panel (S/P/Bld)101 mL/min/1.73m???Normal>=60[facility] on above:Order Comment: Specimen Type: BLOOD SPECIMENOrdering Facility: [facility] Address:[address] [place], [place] [address]Result Comment: Estimated Glomerular Filtration Rate (eGFR) is calculated using the 2020 CKD-EPI creatinine equation. This equation utilizes serum creatinine, sex, and age as parameters. The creatinine assay has traceable calibration to isotope dilution- mass spectrometry. Refer to KDIGO guidelines for clinical interpretation. In patients with unstable renal function, e.g. those with acute kidney injury, the eGFR may not accurately reflect actual GFR.Performed By: #### 19270-8, 11690-5 ####[facility] LABCLIA [id number] [place], [place] [address]Mxfzkah [Mass/Vol]127 mg/uZUdia59-47TpxqpczvgSelect [facility] on above:Order Comment: Specimen Type: BLOOD SPECIMENOrdering Facility: [facility] Address:[address] [place] [address]Ifxyra Comment: The [place] Diabetes [employer] (ADA) provides guidance for cutoff values for fasting glucose and random glucose. The ADA defines fasting as no caloric intake for at least 8 hours. Fasting plasma glucose results between 100 to 125 mg/dL indicate increased risk for diabetes (prediab etes).Fasting plasma glucose results greater than or equal to 126 mg/dL meet the criteria for diagnosis of diabetes. In the absence of unequivocal hyperglycemia, results should be confirmed by repeattesting. In a patient with classic symptoms of hyperglycemia or hyperglycemic crisis, random plasmaglucose results greater than or equal to 200 mg/dL meet the criteria for diagnosis of diabetes.Reference: Standards of Medical Care in Diabetes 2016, [place] [employer]. Diabetes Care. 2016.39(Suppl 1).Performed By: #### 63957- 9, 91632-4 ####[facility] LABCLIA [id number] [place], [place] [address]Rogyugqym [Moles/Vol]4.1 mmol/LNormal3.7-5.1 [facility] on above:Order Comment: Specimen Type: BLOOD SPECIMENOrdering Facility: [facility] Address:[address] [place], [place] [address]Spbbfdqev By: #### 55157-6, 70609-4 ####[facility] LABCLIA [id number] [place], [place] [address]Evnyefq [Mass/Vol]7.1 g/dLNormal6.3-8.0[facility] on above:Order Comment: Specimen Type: BLOOD SPECIMENOrdering Facility: [facility] Address:[address] [place], [place] [address]Performed By: #### 62049- 9, 82969-2 ####[facility] LABCLIA [id number] [place], [place] [address]Ngrxdv [Moles/Vol]135 mmol/YJbs028-436KqomzkyjaSelect Medical [facility]ty [facility] on above:Order Comment: Specimen Type: BLOOD SPECIMENOrdering Facility: [facility] Address:[address] [place], [place] [address]Performed By: #### 04903-7, 50318-0 ####[facility] LABCLIA [id number] [place], [place] [address]Tuws nitrogen [Mass/Vol]13 mg/dLNormal7-21[facility] on above: Order Comment: Specimen Type: BLOOD SPECIMENOrdering Facility: [facility] Address:[address] [place], [place] [address]Performed By: #### 61924- 9, 06048-5 ####[facility] LABIA [id number] [place], [place] [address]Qimjmnsku SerPl-mCncon 51-92-9283Brmfytggc [Mass/Vol]1.7 mg/dLNormal1.7-2.3CWay[facility] on above:Order Comment: Specimen Type: BLOOD SPECIMENOrdering Facility: [facility] Address:[address] [place], [place] [address]Performed By: #### 41079- 9, 07604-9 ####[facility] LABIA [id number] [place], [place] [address]LFC SerPl-aCncon 85-71-3207UYL Qn1.300 m[IU]/L Normal0.270-4.200[facility] on above:Order Comment: Specimen Type: BLOOD SPECIMENOrdering Facility: [facility] Address:[address] [place], [place] [address]Performed By: #### 3016-3 ####[facility] LABORATORYCLIA [id number] [place] [address] [place] OF AMERICACNPNon 87-37-3270GYSWNxrispOuoicpzjk [facility] [place] CNPNon 57-60-5822RAIJBnclxaWzdvsibso Clinic ClevelandCNOVon 22-13-3422XTCQDfkttv [facility] HospitalCB W Auto Differential panel (Bld)on 09-22-2024 Anisocytosis Ql (Bld)PresentNormalCWayne [facility] on above: Order Comment: Specimen Type: BLOOD SPECIMENOrdering Facility: [facility] Address:[address] [place], [place] [address]Performed By: #### 43300- 8 ####[facility] LABCLIA [id number] [address] LABCLIA [id number] [place] [address] [place] AMERICABasophils (Bld) [#/Vol]0.00 10*3/uLNormal<0.11C[facility] on above:Order Comment: Specimen Type: BLOOD SPECIMENOrdering Facility: [facility] Address:[address] [place], [place] [address]Performed By: #### 05765- 8 ####[facility] LABCLIA [id number] [address] LABCLIA [id number] [place] [address] [place] AMERICABasophils/100 WBC (Bld)0.0 %NormalSelect Medical Specialty [facility] on above:Order Comment: Specimen Type: BLOOD SPECIMENOrdering Facility: [facility] Address:[address] [place], [place] [address]Performed By: #### 68636-9 ####[facility] LABCLIA [id number] [place], [place] [address] LABCLIA [id number] [place] [address] [place] OF AMERICADifferential cell count method Nom (Bld)ManualNormalCMercy Health Perrysburg HospitalCommclaren bay special care hospital on above:Order Comment: Specimen Type: BLOOD SPECIMENOrdering Facility: [facility] Address:[address] [place], [place] [address]Performed By: #### 03995-0 ####[facility] LABCLIA [id number] [address] LABCLIA [id number] [place] [address] [place] AMERICAEosinophils (Bld) [#/Vol]0.18 10*3/uLNormal<0.46[facility] HospitalCommclaren bay special care hospital on above: Order Comment: Specimen Type: BLOOD SPECIMENOrdering Facility: [facility] Address:[address] [place], [place] [address]Performed By: #### 93340- 8 ####[facility] LABCLIA [id number] [address] LABCLIA [id number] [place] [address] [place] AMERICAEosinophils/100 WBC (Bld)1.8 %NormalMemorial Health System Marietta Memorial HospitalCommclaren bay special care hospital on above:Order Comment: Specimen Type: BLOOD SPECIMENOrdering Facility: [facility] Address:[address] [place], [place] [address]Performed By: #### 43656-6 ####[facility] LABCLIA [id number] [address] LABCLIA [id number] [place] [address] [place] AMERICAErythrocyte distribution width (RBC) [Ratio]15.0 %Ksmryr61.5-15.0[facility] Comment on above:Order Comment: Specimen Type: BLOOD SPECIMENOrdering Facility: [facility] Address:[address] [place] [address] Performed By: #### 10741-9 ####[facility] LABIA [id number] [place] [id number] LABCLIA [id number] [place] [address] [place] AMERICAHematocrit (Bld) [Volume fraction]31.7 %Low36.0-46.0[facility] on above:Order Comment: Specimen Type: BLOOD SPECIMENOrdering Facility: [facility] Address:[address] [place], [place] [address]Performed By: #### 83461-8 ####[facility] LABIA [id number] [address] LABIA [id number] [place] [address] [place] AMERICAHemoglobin (Bld) [Mass/Vol]10.0 g/dLLow11.5-15.5CWay[facility] on above:Order Comment: Specimen Type: BLOOD SPECIMENOrdering Facility: [facility] Address:[address] [place], [place] [address]Performed By: #### 00256-1 ####[facility] LABIA [id number] [address] LABCLIA [id number] [place] [address] [place] AMERICALymphocytes (Bld) [#/Vol]0.52 10*3/uLLow1.00-4.00[facility] on above:Order Comment: Specimen Type: BLOOD SPECIMENOrdering Facility: [facility] Address:[address] [place], [place] [address]Performed By: #### 78693-4 ####[facility] LABCLIA [id number] [place] [id number] LABCLIA [id number] [place] [address] [place] [facility] + HOSPITALSLymphocytes/100 WBC (Bld)5.3 %NormalSelect Medical Specialty [facility] on above:Order Comment: Specimen Type: BLOOD SPECIMENOrdering Facility: [facility] Address:[address] [place], [place] [address]Performed By: #### 97800-7 ####[facility] LABCLIA [id number] [address] LABCLIA [id number] [address] STATES [facility] (RBC) [Entitic mass]28.4 rpNedeak25.0-34.0[facility] on above: Order Comment: Specimen Type: BLOOD SPECIMENOrdering Facility: [facility] Address:[address] [place], [place] [address]Performed By: #### 81771- 8 ####[facility] LABCLIA [id number] [address] LABCLIA [id number] [address] STATES [facility] (RBC) [Mass/Vol]31.5 g/sICswobl27.5-36.0[facility] on above: Order Comment: Specimen Type: BLOOD SPECIMENOrdering Facility: [facility] Address:[address] [place], [place] [address]Performed By: #### 75065- 8 ####[facility] LABCLIA [id number] [address] LABCLIA [id number] [place] [id number] [place] [facility] (RBC) [Entitic vol]90.1 dEKfxlqc22.0-100.0[facility] on above: Order Comment: Specimen Type: BLOOD SPECIMENOrdering Facility: [facility] Address:[address] [place], [place] [address]Performed By: #### 47342- 8 ####[facility] LABCLIA [id number] [place] [id number] LABCLIA [id number] [place] [address] [place] AMERICAMonocytes (Bld) [#/Vol]0.26 10*3/uLNormal<0.87[facility] on above:Order Comment: Specimen Type: BLOOD SPECIMENOrdering Facility: [facility] Address:[address] [place], [place] [address]Performed By: #### 49187- 8 ####[facility] LABCLIA [id number] [address] LABCLIA [id number] [place] [address] [place] AMERICAMonocytes/100 WBC (Bld)2.6 %NormalSelect Medical Specialty [facility] on above:Order Comment: Specimen Type: BLOOD SPECIMENOrdering Facility: [facility] Address:[address] [place], [place] [address]Performed By: #### 67831-4 ####[facility] LABCLIA [id number] [address] LABCLIA [id number] [place] [address] [place] AMERICANeutrophils (Bld) [#/Vol]8.89 10*3/uLHigh1.45-7.50[facility] on above:Order Comment: Specimen Type: BLOOD SPECIMENOrdering Facility: [facility] Address:[address] [place], [place] [address]Performed By: #### 62674-2 ####[facility] LABCLIA [id number] [place] [id number] LABCLIA [id number] [address] [address] [place] AMERICANeutrophils/100 WBC (Bld)90.3 %NormalSelect [facility]ty [facility] on above:Order Comment: Specimen Type: BLOOD SPECIMENOrdering Facility: [facility] Address:[address] [place], [place] [address]Performed By: #### [id number] ####[facility] LABCLIA [id number] [address] LABCLIA [id number] [place] [address] [place] AMERICANucleated RBC (Bld) [#/Vol]10*3/uLNormal<0.01[facility] on above:Order Comment: Specimen Type: BLOOD SPECIMENOrdering Facility: [facility] Address:[address] [place], [place] [address]Performed By: #### 36100- 8 ####[facility] LABCLIA [id number] [address] LABCLIA [id number] [place] [address] [place] AMERICANucleated RBC/100 WBC (Bld) [Ratio]0.0 /100 WBCNormRiverview Health Institute on above:Order Comment: Specimen Type: BLOOD SPECIMENOrdering Facility: [facility] Address:[address] [place], [place] [address]Performed By: #### 28150-4 ####[facility] LABCLIA [id number] [address] LABCLIA [id number] [place] [address] [place] OF AMERICAOvalocytes LM Ql (Bld)FewNormalCWayne HealthCare [facility] on above:Order Comment: Specimen Type: BLOOD SPECIMENOrdering Facility: [facility] Address:[address] [place], [place] [address]Performed By: #### 13272-0 ####[facility] LABCLIA [id number] [place] [id number] LABCLIA [id number] [address] [address] [place] OF AMERICAPlatelet mean volume (Bld) [Entitic vol]10.8 fLNormal9.0-12.7CMercy Health Perrysburg HospitalCommclaren bay special care hospital on above:Order Comment: Specimen Type: BLOOD SPECIMENOrdering Facility: [facility] Address:[address] [place] [address] Performed By: #### 16253-7 ####[facility] LABCLIA [id number] [address] LABCLIA [id number] [place] [address] [place] AMERICAPlatelets (Bld) [#/Vol]229 10*3/pJGdhtur477-764RuumifisyMemorial Health System [facility] Comment on above:Order Comment: Specimen Type: BLOOD SPECIMENOrdering Facility: [facility] Address:[address] [place], [place] [address]Result Comment: Results checked and verified.No clot detected.Performed By: #### 49686- 8 ####[facility] LABCLIA [id number] [address] LABCLIA [id number] [address] [address] [place] OF AMERICAPlatelets Estimate (Bld) [#/Vol]AdequateNormalCMercy Health Perrysburg HospitalCommclaren bay special care hospital on above: Order Comment: Specimen Type: BLOOD SPECIMENOrdering Facility: [facility] Address:[address] [place], [place] [address]Performed By: #### 19487- 8 ####[facility] LABCLIA [id number] [address] LABCLIA [id number] [address] [place] [address] [place] AMERICAPolychromasia LM Ql (Bld)SlightAvita Health System [facility] Hospital on above:Order Comment: Specimen Type: BLOOD SPECIMENOrdering Facility: [facility] Address:[address] [place], [place] [address]Performed By: #### 26918-4 ####[facility] LABCLIA [id number] [place] [id number] LABCLIA [id number] [address] [place] [address] [place] AMERICARBC (Bld) [#/Vol]3.52 10*6/uLLow3.90-5.20[facility] on above:Order Comment: Specimen Type: BLOOD SPECIMENOrdering Facility: [facility] Address:[address] [place], [place] [address]Performed By: #### 41830- 8 ####[facility] LABCLIA [id number] [place] [id number] LABCLIA [id number] [address], [facility] [place] OF AMERICARED CELL MORPH Reviewed: see results of individual morphologiesMercy Health [facility] Comment on above:Order Comment: Specimen Type: BLOOD SPECIMENOrdering Facility: [facility] Address:[address] [place] [address] Performed By: #### 90578-9 ####[facility] LABCLIA [id number] [place] [id number] LABCLIA [id number] [address] [place] [address] [place] AMERICAWBC (Bld) [#/Vol]9.84 10*3/uLNormal3.70-11.00[facility] Comment on above:Order Comment: Specimen Type: BLOOD SPECIMENOrdering Facility: [facility] Address:[address] [place], [place] [address]Result Comment: Results checked and verified.No clot detected.Performed By: #### 22395- 8 ####[facility] LABCLIA [id number] [place], [place] [address]QGQDBWNQSMARTINS [facility] LABCLIA [id number] [place] [address] [place] OF AMERICACNOVSPon 68-15-8389PRFDNYEorasgScwdwoyoh Clinic ClevelandComprehensive metabolic 2000 panelon 35-59-0370Meycyfs [Mass/Vol]3.1 g/dLLow3.9-4.9CMercy Health [facility] Comment on above:Order Comment: Specimen Type: BLOOD SPECIMENOrdering Facility: [facility] Address:[address] [place] [address] Performed By: #### 03240-8 ####[facility] LABCLIA [id number] [place], [place] [address]IHI [Catalytic activity/Vol]188 U/QVhed21-517JbulehpzdMemorial Health System Marietta Memorial HospitalCommclaren bay special care hospital on above:Order Comment: Specimen Type: BLOOD SPECIMENOrdering Facility: [facility] Address:[address] [place], [place] [address]Performed By: #### 04258-2 ####[facility] LABCLIA [id number] [place] [address] ALT [Catalytic activity/Vol]70 U/LHigh7-38[facility] HospitalCommclaren bay special care hospital on above:Order Comment: Specimen Type: BLOOD SPECIMENOrdering Facility: [facility] Address:[address] [place], [place] [address]Performed By: #### 55666-7 ####[facility] LABIA [id number] [place], [place] [address]Lspgn gap [Moles/Vol]11 mmol/LNormal8-15[facility] HospitalCommclaren bay special care hospital on above:Order Comment: Specimen Type: BLOOD SPECIMENOrdering Facility: [facility] Address:[address] [place], [place] [address]Performed By: #### 01717-3 ####[facility] LABCLIA [id number] GAURAVRY MAXIMAMADEOARIZONA SPINE AND JOINT HOSPITALKASEYJACK[place], [place] [address]XOJ [Catalytic activity/Vol]44 U/FRmbp12-98JlitlgrtuSelect Medical [facility] on above:Order Comment: Specimen Type: BLOOD SPECIMENOrdering Facility: [facility] Address:[address] [place], [place] [address]Performed By: #### 44336-6 ####[facility] LABCLIA [id number] [facility] [place] [address] Bilirubin [Mass/Vol]0.3 mg/dLNormal0.2-1.3CWay[facility]Care [facility] on above:Order Comment: Specimen Type: BLOOD SPECIMENOrdering Facility: [facility] Address:[address] [place], [place] [address]Performed By: #### 77088-4 ####[facility] LABCLIA [id number] [place]UR[place]IMAMADEO[place], [place] [address]Gennwrb [Mass/Vol]9.0 mg/dLNormal8.5-10.2CWayne HealthCare [facility] on above:Order Comment: Specimen Type: BLOOD SPECIMENOrdering Facility: [facility] Address:[address] [place], [place] [address]Performed By: #### 28781-8 ####[facility] LABCLIA [id number] [place], [place] [address]Jsbqxhyx [Moles/Vol]97 mmol/AExb85-539JodfcqfbaSelect [facility] on above:Order Comment: Specimen Type: BLOOD SPECIMENOrdering Facility: [facility] Address:[address] [place], [place] [address]Performed By: #### 20621- 8 ####[facility] LABCLIA [id number] QUARR[place] MAXIM [place], [place] [address]RL1 [Moles/Vol]29 mmol/FKbouqc66-25IjlxgkjhiSelect Medical [facility] on above:Order Comment: Specimen Type: BLOOD SPECIMENOrdering Facility: [facility] Address:[address] [place], [place] [address]Performed By: #### 50261-1 ####[facility] LABCLIA [id number] [place], [place] [address]Khrcueamym [Mass/Vol]0.52 mg/dL Low0.58-0.96[facility] on above:Order Comment: Specimen Type: BLOOD SPECIMENOrdering Facility: [facility] Address:[address] [place], [place] [address]Performed By: #### 19467-2 ####[facility] LABIA [id number] [place] [address] Creatinine and Glomerular filtration rate.predicted panel (S/P/Bld)102 mL/min/1.73m???Normal>=60[facility] on above:Order Comment: Specimen Type: BLOOD SPECIMENOrdering Facility: [facility] Address:[address] [place], [place] [address]Result Comment: Estimated Glomerular Filtration Rate (eGFR) is calculated using the 2020 CKD-EPI cre atinine equation. This equation utilizes serum creatinine, sex, and age as parameters. The creatinine assay has traceable calibration to isotope dilution- mass spectrometry. Refer to KDIGO guidelines for clinical interpretation. In patients with unstable renal function, e.g. those with acute kidney injury, the eGFR may not accurately reflect actual GFR.Performed By: #### 64634-9 ####[facility] LABCLIA [id number] [place], [place] [address]Efebmwf [Mass/Vol]142 mg/nCXsse25-59XjmznavotSelect Medical Specialty Hospital [facility] on above:Order Comment: Specimen Type: BLOOD SPECIMENOrdering Facility: [facility] Address:[address] [place], [place] [address]Result Comment: The [place] Diabetes Association (ADA) provides guidance for cutoff values for fasting glucose and random glucose. The ADA defines fasting as no caloric intake for at least 8 hours. Fasting plasma glucose results between 100 to 125 mg/dL indicate increased risk for diabetes (prediab etes).Fasting plasma glucose results greater than or equal to 126 mg/dL meet the criteria for diagnosis of diabetes. In the absence of unequivocal hyperglycemia, results should be confirmed by repeattesting. In a patient with classic symptoms of hyperglycemia or hyperglycemic crisis, random plasmaglucose results greater than or equal to 200 mg/dL meet the criteria for diagnosis of diabetes.Reference: Standards of Medical Care in Diabetes 2016, [place] [employer] Association. Diabetes Care. 2016.39(Suppl 1).Performed By: #### 40721-1 ####[facility] LABCLIA [id number] [place], [place] [address]Nbmhqtvci [Moles/Vol]4.2 mmol/LNormal3.7-5.1CWay[facility] HealthCare [facility] on above:Order Comment: Specimen Type: BLOOD SPECIMENOrdering Facility: [facility] Address:[address] [place], [place] [address]Performed By: #### 66724-7 ####[facility] LABCLIA [id number] [place], [place] [address]Juaiova [Mass/Vol]6.5 g/dLNormal6.3-8.0[facility] on above:Order Comment: Specimen Type: BLOOD SPECIMENOrdering Facility: [facility] Address:[address] [place], [place] [address]Performed By: #### 84166- 8 ####[facility] LABCLIA [id number] [place], [place] [address]Zbrkvg [Moles/Vol]137 mmol/DYwoean769-888VdygkxmtxSelect Medical [facility] on above:Order Comment: Specimen Type: BLOOD SPECIMENOrdering Facility: [facility] Address:[address] [place], [place] [address]Performed By: #### 38937-3 ####[facility] LABCLIA [id number] [place], [place] [address]Ijzi nitrogen [Mass/Vol]13 mg/dLNormal7-21[facility] on above:Order Comment: Specimen Type: BLOOD SPECIMENOrdering Facility: [facility] Address:[address] [place], [place] [address]Performed By: #### 59289-6 ####[facility] LABCLIA [id number] [place], [place] [address]Acksobxv SerPl-mCncon 96-71-9906Nxhdadve [Mass/Vol]3857.0 ng/uCBkkn78.7-205.1CWay[facility] on above:Order Comment: Specimen Type: BLOOD SPECIMENOrdering Facility: [facility] Address:[address] [place], [place] [address]Performed By: #### 41001-8, 4542-7, 2276-4 ####[facility] LABCLIA [id number] [place] [address] [place] AMERICAFolate SerPl-mCncon 09-22-2024 Folate [Mass/Vol]12.3 ng/mLNormal>4.7CWay[facility] on above: Order Comment: Specimen Type: BLOOD SPECIMENOrdering Facility: [facility] Address:[address] [place], [place] [address]Performed By: #### 2132- 9, 2284-8 ####[facility] LABCLIA [id number] [facility] [place] [address] [place] AMERICAHaptoglob SerPl-mCncon 63-28-6788Iwsqcufwrgk [Mass/Vol]547 mg/eZGwrt21-218LbrilozkxMemorial Health System [facility] Comment on above:Order Comment: Specimen Type: BLOOD SPECIMENOrdering Facility: [facility] Address:[address] [place] [address] Performed By: #### 99781-9, 4542-7, 6-4 ####[facility] LABCLIA [id number] [place] [address] [place] AMERICAIron and Iron binding capacity panelon 46-90-8133Lrxm [Mass/Vol]26 ug/dL Ymr20-761BtfpqnvonSelect Medical Specialty Hospital [facility] on above:Order Comment: Specimen Type: BLOOD SPECIMENOrdering Facility: [facility] Address:[address] [place], [place] [address]Performed By: #### 14857-9, 4542-7, 6-4 ####[facility] LABCLIA [id number] [place] [address] [place] AMERICAIron binding capacity [Mass/Vol] 207 ug/mXPvm900-433LkdhbzqsrSelect Medical Specialty [facility] on above:Order Comment: Specimen Type: BLOOD SPECIMENOrdering Facility: [facility] Address:[address] [place], [place] [address]Performed By: #### 47440-3, 4542-7, 6-4 ####[facility] LABCLIA [id number] [place] [address] [place] AMERICAIron/TIBC [Molar ratio]12.6 %Low 15.0-57.0[facility] on above:Order Comment: Specimen Type: BLOOD SPECIMENOrdering Facility: [facility] Address:[address] [place], [place] [address]Performed By: #### 75923-5, 4542-7, 6-4 ####[facility] LABCLIA [id number] [place] [address] [place] AMERICAKAPPA/MEHTA,FREE,SERon 09-22-2024 Immunoglobulin light chains.kappa.free (S) [Mass/Vol]18.0 mg/LNormal3.3-19.4 [facility] on above:Order Comment: Specimen Type: BLOOD SPECIMENOrdering Facility: [facility] Address:[address] [place], [place] [address]Result Comment: Rarely, increased serum free light chains levels may not be detected or accurately quantified due to prozone phenomenon or in high viscosity samples using this immunoturbidimetric assay. Correlation with other laboratory results and clinical findings is recommended.The [place] Free Light Chain was performed using the Binding Site Optilite immunoturbidimetric method. Result obtained with different assay methods or kits cannot be used interchangeably.Performed By: #### KLFRS ####[facility] LABCLIA [id number] [place] [address] [place] AMERICAImmunoglobulin light chains.kappa/Immunoglobulin light chains.lambda (S) [Mass ratio]1.51Demkth4.26-1.65[facility] Comment on above:Order Comment: Specimen Type: BLOOD SPECIMENOrdering Facility: [facility] Address:[address] [place] [address] Performed By: #### KLFRS ####[facility]ENT[facility]ILLEIA [id number] [place] [address] [place] AMERICAImmunoglobulin light chains.lambda.free [Mass/Vol]15.6 mg/LNormal5.7-26.3CWay[facility] on above:Order Comment: Specimen Type: BLOOD SPECIMENOrdering Facility: [facility] Address:[address] [place], [place] [address]Result Comment: Rarely, increased serum free light chains levels may not be detected or accurately quantified due to prozone phenomenon or in high viscosity samples using this immunoturbidimetric assay. Correlation with other laboratory results and clinical findings is recommended.The L[place] Free Light Chain was performed using the Binding Site Optilite immunoturbidimetric method. Result obtainedwith different assay methods or kits cannot be used interchangeably.Performed By: #### KLFRS ####[facility] LABIA [id number] [place] [address] [place] AMERICAVit B12 SerPl-mCncon 98-38-4105Txtuowajt (Vitamin B12) [Mass/Vol]pg/mL Akss828-1356GtkrahokjWayne HealthCare Main Campus on above:Order Comment: Specimen Type: BLOOD SPECIMENOrdering Facility: [facility] Address:[address] [place], [place] [address]Performed By: #### 2132-9, 2284-8 ####[facility] LABCLIA [id number] [facility] [id number] [place], [place] [address] [place] AMERICACNPNon 09-28-3368SDHYMezpgnJkyajkzvr Clinic ClevelandCNPNon 49-35-1335VDECUnrmgpRdggludcy Clinic ClevelandCB W Auto Differential panel (Bld)on 96-64-2416Zqqjdvktn (Bld) [#/Vol]0.04 10*3/uLNormal <0.11CWay[facility] on above:Order Comment: Specimen Type: BLOOD SPECIMENOrdering Facility: [facility] Address:[address] [place], [place] [address]Performed By: #### 52378-8 ####[facility] LABCLIA [id number] [place] [address] Basophils/100 WBC (Bld)0.3 %NormalSelect Medical Specialty Hospital [facility] on above: Order Comment: Specimen Type: BLOOD SPECIMENOrdering Facility: [facility] Address:[address] [place], [place] [address]Performed By: #### 97425- 8 ####[facility] LABCLIA [id number] [place], [place] [address]Mewajcavnoak cell count method Nom (Bld)AutoNormal [facility] on above:Order Comment: Specimen Type: BLOOD SPECIMENOrdering Facility: [facility] Address:[address] [place], [place] [address]Performed By: #### 70320-7 ####[facility] LABCLIA [id number] [place], [place] [address]Wskviumonls (Bld) [#/Vol]0.08 10*3/uLNormal<0.46[facility] on above: Order Comment: Specimen Type: BLOOD SPECIMENOrdering Facility: [facility] Address:[address] [place], [place] [address]Performed By: #### 50144- 8 ####[facility] LABCLIA [id number] [place], [place] [address]Hajjfvjnysp/100 WBC (Bld)0.6 %NormalSelect Medical Specialty Hospital [facility] on above:Order Comment: Specimen Type: BLOOD SPECIMENOrdering Facility: [facility] Address:[address] [place], [place] [address]Performed By: #### 08988-4 ####[facility] LABIA [id number] [place], [place] [address]Ytclcuocccg distribution width (RBC) [Ratio]14.6 %Tmfkgv92.5-15.0[facility] on above: Order Comment: Specimen Type: BLOOD SPECIMENOrdering Facility: [facility] Address:[address] [place], [place] [address]Performed By: #### 49733- 8 ####[facility] [id number] [place], [place] [address]Cepacwmjig (Bld) [Volume fraction]29.0 %Low36.0-46.0 [facility] on above:Order Comment: Specimen Type: BLOOD SPECIMENOrdering Facility: [facility] Address:[address] [place], [place] [address]Performed By: #### 41749-0 ####[facility] LABIA [id number] [place], [place] [address]Ygphgercpb (Bld) [Mass/Vol]9.1 g/dLLow11.5-15.5CWay[facility] on above:Order Comment: Specimen Type: BLOOD SPECIMENOrdering Facility: [facility] Address:[address] [place], [place] [address]Performed By: #### 46526- 8 ####[facility] LABIA [id number] [place], [place] [address]Kbftvrql granulocytes (Bld) [#/Vol]0.15 10*3/uLHigh<0.10 [facility] on above:Order Comment: Specimen Type: BLOOD SPECIMENOrdering Facility: [facility] Address:[address] [place], [place] [address]Performed By: #### 85171-4 ####[facility] LABIA [id number] [place], [place] [address]Hqdlqmbk granulocytes/100 WBC (Bld)1.1 %NormalSelect Medical Specialty Hospital [facility] on above: Order Comment: Specimen Type: BLOOD SPECIMENOrdering Facility: [facility] Address:[address] [place], [place] [address]Performed By: #### 69063- 8 ####[facility] LABCLIA [id number] [place], [place] [address]Udchxoadthj (Bld) [#/Vol]0.49 10*3/uLLow1.00-4.00 [facility] on above:Order Comment: Specimen Type: BLOOD SPECIMENOrdering Facility: [facility] Address:[address] [place], [place] [address]Performed By: #### 01128-8 ####[facility] LABIA [id number] [place], [place] [address]Pasfphgwziq/100 WBC (Bld)3.7 %NormalSelect Medical Specialty Hospital [facility] on above:Order Comment: Specimen Type: BLOOD SPECIMENOrdering Facility: [facility] Address:[address] [place], [place] [address]Performed By: #### 09084-8 ####[facility] LABIA [id number] [place], [place] [address]VNE (RBC) [Entitic mass]28.4 jgNthkty12.0-34.0[facility] on above:Order Comment: Specimen Type: BLOOD SPECIMENOrdering Facility: [facility] Address:[address] [place], [place] [address]Performed By: #### 40518-8 ####[facility] LABIA [id number] [place], [place] [address]XNHD (RBC) [Mass/Vol]31.4 g/vAHqdwtr73.5-36.0[facility] on above: Order Comment: Specimen Type: BLOOD SPECIMENOrdering Facility: [facility] Address:[address] [place], [place] [address]Performed By: #### 78411- 8 ####[facility] LABCLIA [id number] [place], [place] [address]TKE (RBC) [Entitic vol]90.6 nQTbunnz42.0-100.0[facility] on above:Order Comment: Specimen Type: BLOOD SPECIMENOrdering Facility: [facility] Address:[address] [place], [place] [address]Performed By: #### 64473-4 ####[facility] LABCLIA [id number] [place], [place] [address]Asrgflenx (Bld) [#/Vol]0.72 10*3/uLNormal<0.87[facility] on above:Order Comment: Specimen Type: BLOOD SPECIMENOrdering Facility: [facility] Address:[address] [place], [place] [address]Performed By: #### 36946- 8 ####[facility] LABCLIA [id number] [place], [place] [address]Ptyozyzon/100 WBC (Bld)5.4 %NormalSelect Medical Specialty [facility] on above:Order Comment: Specimen Type: BLOOD SPECIMENOrdering Facility: [facility] Address:[address] [place], [place] [address]Performed By: #### 62305-2 ####[facility] LABCLIA [id number] [place], [place] [address]Siaefskfgul (Bld) [#/Vol]11.77 10*3/uLHigh1.45-7.50[facility] on above:Order Comment: Specimen Type: BLOOD SPECIMENOrdering Facility: [facility] Address:[address] [place], [place] [address]Performed By: #### 21246-9 ####[facility] LABCLIA [id number] [place], [place] [address]Onspoyjfkrz/100 WBC (Bld)88.9 %NormalSelect Medical Specialty Hospital [facility] on above:Order Comment: Specimen Type: BLOOD SPECIMENOrdering Facility: [facility] Address:[address] [place], [place] [address]Performed By: #### 23602-3 ####[facility] LABCLIA [id number] [place], [place] [address]Jptrchplq RBC (Bld) [#/Vol] 10*3/uLNormal<0.01[facility] on above:Order Comment: Specimen Type: BLOOD SPECIMENOrdering Facility: [facility] Address:[address] [place], [place] [address]Performed By: #### 84978-3 ####[facility] LABIA [id number] [place], [place] [address]Fxzbivsqp RBC/100 WBC (Bld) [Ratio]0.0 /100 WBCNormal [facility] on above:Order Comment: Specimen Type: BLOOD SPECIMENOrdering Facility: [facility] Address:[address] [place], [place] [address]Performed By: #### 12809-7 ####[facility] LABIA [id number] [place], [place] [address]Hrusbtdg mean volume (Bld) [Entitic vol]9.2 fLNormal9.0-12.7CWay[facility] on above:Order Comment: Specimen Type: BLOOD SPECIMENOrdering Facility: [facility] Address:[address] [place] [address] Performed By: #### 61615-5 ####[facility] LABIA [id number] [place], [place] [address]Jscbekewz (Bld) [#/Vol]460 10*3/nQWzqm277-862ZtjtwmtmhSelect [facility] [place] on above:Order Comment: Specimen Type: BLOOD SPECIMENOrdering Facility: [facility] Address:[address] [place], [place] [address]Performed By: #### 30322-7 ####[facility] LABCLIA [id number] [place], [place] [address]YNL (Bld) [#/Vol]3.20 10*6/uLLow3.90-5.20[facility] on above:Order Comment: Specimen Type: BLOOD SPECIMENOrdering Facility: [facility] Address:[address] [place], [place] [address]Performed By: #### 54600-2 ####[facility] LABIA [id number] [place], [place] [address]DHT (Bld) [#/Vol]13.25 10*3/uL High3.70-11.00[facility] on above:Order Comment: Specimen Type: BLOOD SPECIMENOrdering Facility: [facility] Address:[address] [place], [place] [address]Performed By: #### 42189-9 ####[facility] LABCLIA [id number] [place] [address] CNOVSPon 52-32-7680DPMUFDJnufodWxgsuxpya Clinic ClevelandComprehensive metabolic 2000 panelon 87-83-9339Jiwjzhn [Mass/Vol]2.8 g/dLLow3.9-4.9C[facility] on above:Order Comment: Specimen Type: BLOOD SPECIMENOrdering Facility: [facility] Address:[address] [place], [place] [address]Performed By: #### 91418-3, 47189-6 ####[facility] LABCLIA [id number] [place], [place] [address]LGP [Catalytic activity/Vol]102 U/FKapqth17-175QewnoszzySelect Medical Specialty [facility] [place] on above:Order Comment: Specimen Type: BLOOD SPECIMENOrdering Facility: [facility] Address:[address] [place], [place] [address]Performed By: #### 10535- 8, ####[facility] LABCLIA [id number] [facility] [place] [address]HCG [Catalytic activity/Vol]46 U/LHigh7-38[facility] on above:Order Comment: Specimen Type: BLOOD SPECIMENOrdering Facility: [facility] Address:[address] [place], [place] [address]Performed By: #### 34425-9, ####[facility] LABCLIA [id number] [facility] [place], [place] [address]Cnsqa gap [Moles/Vol]10 mmol/LNormal8-15[facility] on above: Order Comment: Specimen Type: BLOOD SPECIMENOrdering Facility: [facility] Address:[address] [place], [place] [address]Performed By: #### 40378- 8, ####[facility] LABCLIA [id number] [facility] [place], [place] [address]ZHZ [Catalytic activity/Vol]32 U/BJzfvhe30-40 [facility] on above:Order Comment: Specimen Type: BLOOD SPECIMENOrdering Facility: [facility] Address:[address] [place], [place] [address]Performed By: #### 46978-8, ####[facility] LABCLIA [id number] [place] [address] Bilirubin [Mass/Vol]0.4 mg/dLNormal0.2-1.3C[facility] on above:Order Comment: Specimen Type: BLOOD SPECIMENOrdering Facility: [facility] Address:[address] [place], [place] [address]Performed By: #### 46957-5, 92260-5 ####[facility] LABCLIA [id number] [place], [place] [address]Mjjworu [Mass/Vol]8.6 mg/dLNormal8.5-10.2 [facility] on above:Order Comment: Specimen Type: BLOOD SPECIMENOrdering Facility: [facility] Address:[address] [place], [place] [address]Performed By: #### 50435-9, ####[facility] LABCLIA [id number] [place], [place] [address]Obzpzqhx [Moles/Vol]94 mmol/UUjg52-712IfdquijxaSelect Medical Specialty [facility] on above:Order Comment: Specimen Type: BLOOD SPECIMENOrdering Facility: [facility] Address:[address] [place], [place] [address]Performed By: #### 20259- 8, ####[facility] LABCLIA [id number] [place], [place] [address]XF8 [Moles/Vol]25 mmol/GFseqsm92-15FelnieifrSelect Medical Specialty Hospital - [place] on above:Order Comment: Specimen Type: BLOOD SPECIMENOrdering Facility: [facility] Address:[address] [place], [place] [address]Performed By: #### 09429-9, ####[facility] LABCLIA [id number] [place], [place] [address]Bjnummjtvc [Mass/Vol] 0.52 mg/dLLow0.58-0.96[facility] on above:Order Comment: Specimen Type: BLOOD SPECIMENOrdering Facility: [facility] Address:[address] [place], [place] [address]Performed By: #### 25815-6, ####[facility] LABCLIA [id number] [place], [place] [address]Ldpvxgwlev and Glomerular filtration rate.predicted panel (S/P/Bld)102 mL/min/1.73m???Normal>=60[facility] on above:Order Comment: Specimen Type: BLOOD SPECIMENOrdering Facility: [facility] Address:[address] [place], [place] [address]Ngbcsm Comment: Estimated Glomerular Filtration Rate (eGFR) is calculated using the 2020 CKD-EPI creatinine equation. This equation utilizes serum creatinine, sex, and age as parameters. The creatinine assay has traceable calibration to isotope dilution- mass spectrometry. Refer to KDIGO guidelines for clinical interpretation. In patients with unstable renal function, e.g. those with acute kidney injury, the eGFR may not accurately reflect actual GFR.Performed By: #### 73599-6, 13054-4 ####[facility] LABIA [id number] [place], [place] [address]Bphaeca [Mass/Vol]106 mg/cVYtft45-74NuowlqpxdSelect Medical Specialty [facility] [place] on above:Order Comment: Specimen Type: BLOOD SPECIMENOrdering Facility: [facility] Address:[address] [place], [place] [address]Aboyrs Comment: The [place] Diabetes Association (ADA) provides guidance for cutoff values for fasting glucose and random glucose. The ADA defines fasting as no caloric intake for at least 8 hours. Fasting plasma glucose results between 100 to 125 mg/dL indicate increased risk for diabetes (prediab etes).Fasting plasma glucose results greater than or equal to 126 mg/dL meet the criteria for diagnosis of diabetes. In the absence of unequivocal hyperglycemia, results should be confirmed by repeattesting. In a patient with classic symptoms of hyperglycemia or hyperglycemic crisis, random plasmaglucose results greater than or equal to 200 mg/dL meet the criteria for diagnosis of diabetes.Reference: Standards of Medical Care in Diabetes 2016, [place] [employer] Association. Diabetes Care. 2016.39(Suppl 1).Performed By: #### 50186- 8, 67442-8 ####[facility] LABCLIA [id number] [place], [place] [address]Lrpekpoys [Moles/Vol]4.0 mmol/LNormal3.7-5.1 [facility] on above:Order Comment: Specimen Type: BLOOD SPECIMENOrdering Facility: [facility] Address:[address] [place], [place] [address]Performed By: #### 64042-0, 79728-4 ####[facility] LABCLIA [id number] [place], [place] [address]Pizhmep [Mass/Vol]6.3 g/dLNormal6.3-8.0[facility] on above:Order Comment: Specimen Type: BLOOD SPECIMENOrdering Facility: [facility] Address:[address] [place], [place] [address]Performed By: #### 78979- 8, 67370-7 ####[facility] LABCLIA [id number] [place], [place] [address]Aqdskd [Moles/Vol]129 mmol/KRrj644-997PacalcvswSelect Medical Specialty Hospital [facility] [place] on above:Order Comment: Specimen Type: BLOOD SPECIMENOrdering Facility: [facility] Address:[address] [place], [place] [address]Performed By: #### 95473-3, 00147-8 ####[facility] LABCLIA [id number] [place], [place] [address]Xzyu nitrogen [Mass/Vol]10 mg/dLNormal7-21[facility] on above: Order Comment: Specimen Type: BLOOD SPECIMENOrdering Facility: [facility] Address:[address] [place], [place] [address]Performed By: #### 58821- 8, 98947-9 ####[facility] LABCLIA [id number] [place], [place] [address]Gddelcucy SerPl-mCncon 05-14-8524Kyiqxkyaz [Mass/Vol]1.7 mg/dLNormal1.7-2.3C[facility] on above:Order Comment: Specimen Type: BLOOD SPECIMENOrdering Facility: [facility] Address:[address] [place], [place] [address]Performed By: #### 43092- 8, 31820-6 ####[facility] LABCLIA [id number] [place], [place] [address]HNEFFEQE FOR ADDITIONAL BIOMARKER AND MOLECULAR TESTINGOrdered By: Kalen Jennings on 93-65-5558BFADHDUkworxjht ClinicComment on above:Request has been received for evaluation and the results will be issued separately. [facility] HospitalREFERRAL FOR ADDITIONAL BIOMARKER AND MOLECULAR TESTINGon 88-47-5209JNNZCAXX FOR ADDITIONAL BIOMARKER AND MOLECULAR TESTINGNormalCWayne HealthCare [facility] on above:Order Comment: Specimen Type: TISSUE SPECIMENOrdering Facility: [facility] Address: [address] [place], [place] [address]Result Comment: Request has been received for evaluation and the results will be issued separately.Performed By: #### APMOL ####[facility] LABCLIA [id number] [place], [place] [address]BOS SerPl-aCncon 97-96-1934VAH Qn1.380 m[IU]/LNormal0.270-4.200[facility] on above:Order Comment: Specimen Type: BLOOD SPECIMENOrdering Facility: [facility] Address:[address] [place], [place] [address]Performed By: #### 3016-3 ####[facility] LABCLIA [id number] [place] [address] [place] OF AMERICACNPNon 52-62-8724ZALWDsqhekLidzsayjj Clinic ClevelandBasi Metabolic Panelon 90-29-5372Oitgb gap [Moles/Vol]10.9 mmol/LNormal6.0-15.0The [facility] Physician GroupComment on above:Performed By: #### VIN, FE and TIBC, AKIY24YBC, LDH #### [facility] [address] [place] [address] USACalcium [Mass/Vol]8.2 mg/dLLow8.6-10.3The [facility] Physician GroupComment on above:Performed By: #### VIN, FE and TIBC, [id number], LDH #### [facility] [address] [place] [address] USAChloride [Moles/Vol]102 mmol/HQkcfiv16-639Jce [facility] Physician GroupComment on above:Performed By: #### VIN, FE and TIBC, TRGC06GNL, LDH #### [place] [address] USACO2 [Moles/Vol]27.9 mmol/GVpouew51.0-31.0The [facility] Physician GroupComment on above:Performed By: #### VIN, FE and TIBC, NXKU98NQK, LDH #### [facility] [address] [place] [address] USACreatinine [Mass/Vol]0.41 mg/dLLow0.60-1.20The [facility] Physician GroupComment on above:Performed By: #### VIN, FE and TIBC, UUUB62OAE, LDH #### [place] [address] USACreatinine Clr Calc Qbvdcvwv96.13NormalThe [facility] Health Physician GroupComment on above:Result Comment: PERFORMED BY: [place] [address] PATHOLOGIST BRIEFCASE SEWER PETER COFFEY M.D.Performed By: #### VIN, FE and TIBC, [id number], LDH #### [place] [address] USAGFR/1.73 sq M.predicted MDRD (S/P/Bld) [Vol rate/Area] mL/min/{1.73_m2}NormalThe [facility] Physician GroupComment on above:Performed By: #### VIN, FE and TIBC, BJCP15EYP, LDH #### [place] [address] USAGlucose [Mass/Vol]108 mg/pVZmjc80-983Bql [facility] Physician GroupComment on above:Result Comment: Random Glucose Reference Range is dependent on time and content of last meal. Glucose of more than 200 mg/dL in a nonstressed, ambulatory subject supports the diagnosis of Diabetes Mellitus. ADA recommended reference rangePerformed By: #### VIN, FE and TIBC, DAXH13TMV, LDH #### [facility] [address] [place] [address] USAPotassium [Moles/Vol]3.8 mmol/LNormal3.5-5.1The [facility] Physician GroupComment on above:Performed By: #### VIN, FE and TIBC, RMLV49CNA, LDH #### [facility] [address] [place] [address] USASodium [Moles/Vol]137 mmol/BZctlrc677-857Fxr [facility] Physician GroupComment on above:Performed By: #### VIN, FE and TIBC, MZCY40LSM, LDH #### [facility] [address] [place] [address] USAUrea nitrogen [Mass/Vol]7 mg/dLNormal7-25The [facility] Physician GroupComment on above:Performed By: #### VIN, FE and TIBC, DBKY97GZF, LDH #### [facility] [address] [place] [address] USACalcium [Mass/volume] in Serum or PlasmaOrdered By: Agatha Grayomar on 56-03-4618Aebqyxe [Mass/Vol]Calcium [Mass/volume] in Serum or PlasmaLow8.6-10.3FJ.W. Ruby Memorial HospitalCarbon dioxide, total [Moles/volume] in Serum or PlasmaOrdered By: Agatha Grayomar on 01-72-3342QY4 [Moles/Vol]Carbon dioxide, total [Moles/volume] in Serum or Vaoljg60.0-31.0 [facility] Medical CenterChloride [Moles/volume] in Serum or Plasma Ordered By: Agatha Grayomar on 22-53-9655Ibzthunt [Moles/Vol]Chloride [Moles/volume] in Serum or Sqsycy59-410KsjhwlyshFisher-Titus Medical Center Creatinine [Mass/volume] in Serum or PlasmaOrdered By: Agatha Grayomar on 21-73-9910Qkjqghpfpt [Mass/Vol]Creatinine [Mass/volume] in Serum or PlasmaLow 0.60-1.20[facility] Medical CenterErythrocyte distribution width Auto (RBC) [Ratio]Ordered By: Agatha Abrahamr on 31-64-1428Wyzewktfagn distribution width (RBC) [Ratio]Erythrocyte distribution width [Ratio] by Automated count 11.9-15.3FJ.W. Ruby Memorial HospitalGlucose [Mass/volume] in Serum or PlasmaOrdered By: Obmichelledanoah Grayomar on 48-31-8797Nkaivub [Mass/Vol]Glucose [Mass/volume] in Serum or SzkgmmPcgv74-797LduiucmmhFisher-Titus Medical Center Comment on above:ADA recommended reference rangeRandom Glucose Reference Range is dependent on time and content of last meal. Glucose of more than 200 mg/dL in a nonstressed, ambulatory subject supports the diagnosisof Diabetes Mellitus. Hematocrit Auto (Bld) [Volume fraction]Ordered By: Agatha Martinez on 09-12-2024 Hematocrit (Bld) [Volume fraction]Hematocrit [Volume Fraction] of Blood by Automated yxyvaKai54.0-46.4FJ.W. Ruby Memorial HospitalHemoglobin [Mass/volume] in BloodOrdered By: Agatha Abrahamr on 14-54-4919Spitbnjhls (Bld) [Mass/Vol]Hemoglobin [Mass/volume] in WwljbVqh23.8-15.4FJ.W. Ruby Memorial HospitalHemogram CBC Without Diffon 05-91-4773Jyhtnbfdvfr distribution width (RBC) [Ratio]14.6 %Dqpxuu51.9-15.3The [facility] Physician GroupComment on above:Performed By: #### VIN, FE and TIBC, COKU46MNT, LDH #### [facility] [address] [place] [address] USAHematocrit (Bld) [Volume fraction]25.2 %Low34.0-46.4The [facility] Health Physician GroupComment on above:Performed By: #### VIN, FE and TIBC, [id number], LDH #### [facility] [address] [place] [address] USAHemoglobin (Bld) [Mass/Vol]8.3 g/dLLow11.8-15.4The [facility] Health Physician GroupComment on above:Performed By: #### VIN, FE and TIBC, [id number], LDH #### [facility] [address] [place], [place] [address]H (RBC) [Entitic mass]28.6 faRgexxt99.7-34.3The [facility] Physician GroupComment on above:Performed By: #### VIN, FE and TIBC, MEMS81YOI, LDH #### [address]MCV (RBC) [Entitic vol]87.2 cCZotlnb56-236Xhh [facility] Physician GroupComment on above:Performed By: #### VIN, FE and TIBC, IXDT72AQQ, LDH #### [place] [address] USAMean Corpuscular HGB Conc32.8 g/tGWjqspl88.0-35.0The [facility] Physician GroupComment on above:Performed By: #### VIN, FE and TIBC, EYTG05PTO, LDH #### [place] [address] USAPlatelet mean volume (Bld) [Entitic vol]7.4 fLNormal 6.3-10.7The [facility] Health Physician GroupComment on above:Result Comment: PERFORMED BY: [place] [address] PATHOLOGIST BRIEFCASE SEWER PETER CFOFEY M.D.Performed By: #### VIN, FE and TIBC, TTOJ63FOW, LDH #### [place] [address] USAPlatelets (Bld) [#/Vol]409 10*3/dHTndzpk253-479Ttf [facility] Physician GroupComment on above:Performed By: #### VIN, FE and TIBC, KYQZ32NGZ, LDH #### [place] [address] USARBC (Bld) [#/Vol]2.89 10*6/uLLow3.60-5.00The [facility] Physician GroupComment on above:Performed By: #### VIN, FE and TIBC, LEVX29HPY, LDH #### [address] [place] [address] USAWBC (Bld) [#/Vol]11.2 10*3/uLNormal3.8-11.6The [facility] Physician GroupComment on above:Performed By: #### VIN, FE and TIBC, INAH79KPL, LDH #### [facility] [address] [place] [address] USALeukocytes [#/volume] corrected for nucleated erythrocytes in Blood by Automated counOrdered By: Agatha Grayomar on 26-43-9619RKO corrected for nucl RBC Auto (Bld) [#/Vol]Leukocytes [#/volume] corrected for nucleated erythrocytes in Blood by Automated coun3.8-11.6FMercy Health Defiance Hospital Auto (RBC) [Entitic mass]Ordered By: Agatha Grayomar on 02-19-6431CFQ (RBC) [Entitic mass]MCH [Entitic mass] by Automated count24.7-34.3 [facility]itus Medical CenterMCHC Auto (RBC) [Mass/Vol]Ordered By: Agatha Grayomar on 20-80-2991ECWF (RBC) [Mass/Vol]MCHC [Mass/volume] by Automated count 32.0-35.0[facility] Medical CenterMCV Auto (RBC) [Entitic vol]Ordered By: Agatha Grayomar on 64-28-1538UTN (RBC) [Entitic vol]MCV [Entitic volume] by Automated nflca64-686NbygdwjrfFisher-Titus Medical CenterNo Panel Information Ordered By: Agatha Martinez on 87-44-2852Dbjmjfmao GFR (CKD-EPI)> 60.0 mL/Min [facility] Medical CenterPharmacy Creatinine Clearance (Chem82.13 [facility]itus Medical CenterPlatelet mean volume Auto (Bld) [Entitic vol] Ordered By: Agatha Grayomar on 92-06-9978Lxymuslw mean volume (Bld) [Entitic vol]Platelet mean volume [Entitic volume] in Blood by Automated count6.3-10.7 [facility]itus Medical CenterPlatelets Auto (Bld) [#/Vol]Ordered By: Agatha Grayomar on 14-05-9599Wzsdzvthn (Bld) [#/Vol]Platelets [#/volume] in Blood by Automated iauil774-133HumnuxqpjFisher-Titus Medical CenterPotassium [Moles/volume] in Serum or PlasmaOrdered By: Agatha Abrahamr on 40-11-3583Rdavbuojc [Moles/Vol] Potassium [Moles/volume] in Serum or Plasma3.5-5.1FJ.W. Ruby Memorial HospitalRBC Auto (Bld) [#/Vol]Ordered By: Agatha Grayomar on 48-72-0284OPO (Bld) [#/Vol]Erythrocytes [#/volume] in Blood by Automated countLow3.60-5.00Morrow County Hospitalerum or plasma anion gap determinationOrdered By: Agatha Martinez on 70-79-4330Xtzhu gap [Moles/Vol]Serum or plasma anion gap determination6.0-15.0[facility] County Hospitalodium [Moles/volume] in Serum or PlasmaOrdered By: Agatha Martinez on 96-47-1126Llhoij [Moles/Vol]Sodium [Moles/volume] in Serum or Zaovxz774-812YmvdydemrFisher-Titus Medical CenterUrea nitrogen [Mass/volume] in Serum or PlasmaOrdered By: Agatha Martinez on 45-96-9292Shtc nitrogen [Mass/Vol]Urea nitrogen [Mass/volume] in Serum or Plasma 7-25[facility]itus Medical CenterBasic Metabolic Panelon 60-97-5962Avkgr gap [Moles/Vol]12.5 mmol/LNormal6.0-15.0The [facility] Physician GroupComment on above:Performed By: #### VIN, FE and TIBC, UPCI27PXG, LDH #### [facility] [address] [place] [address] USACalcium [Mass/Vol]8.5 mg/dLLow8.6-10.3The [facility] Physician GroupComment on above:Performed By: #### VIN, FE and TIBC, UOHK60EXN, LDH #### [facility] [address] [place] [address] USAChloride [Moles/Vol]99 mmol/GVelotx83-077Isi [facility] Physician GroupComment on above:Performed By: #### VIN, FE and TIBC, [id number], LDH #### [place] [address] USACO2 [Moles/Vol]28.3 mmol/NFfvfcj49.0-31.0The [facility] Physician GroupComment on above:Performed By: #### VIN, FE and TIBC, [id number], LDH #### [place] [address] USACreatinine [Mass/Vol]0.43 mg/dLLow0.60-1.20The [facility] Physician GroupComment on above:Performed By: #### VIN, FE and TIBC, LQFU42FTI, LDH #### [place] [address] USACreatinine Clr Calc Tayylmow38.13NormalThe [facility] Health Physician GroupComment on above:Result Comment: PERFORMED BY: [place] [address] PATHOLOGIST BRIEFCASE SEWER PETER COFFEY M.D.Performed By: #### VIN, FE and TIBC, ANIQ54DSZ, LDH #### [place] [address] USAGFR/1.73 sq M.predicted MDRD (S/P/Bld) [Vol rate/Area] mL/min/{1.73_m2}NormalThe [facility]ician [facility] HospitalComment on above:Performed By: #### VIN, FE and TIBC, ZXIU42IAM, LDH #### [place] [address] USAGlucose [Mass/Vol]110 mg/jVEuit13-565Xco [facility] Physician GroupComment on above:Result Comment: Random Glucose Reference Range is dependent on time and content of last meal. Glucose of more than 200 mg/dL in a nonstressed, ambulatory subject supports the diagnosis of Diabetes Mellitus. ADA recommended reference rangePerformed By: #### VIN, FE and TIBC, ALYZ72RLT, LDH #### [address] [place] [address] USAPotassium [Moles/Vol]3.8 mmol/LNormal3.5-5.1The [facility] Physician GroupComment on above:Performed By: #### VIN, FE and TIBC, FZQV48ECA, LDH #### [place] [address] USASodium [Moles/Vol]136 mmol/ROpxncw562-736Kjp [facility] Physician GroupComment on above:Performed By: #### VIN, FE and TIBC, OABH54JRV, LDH #### [place] [address] USAUrea nitrogen [Mass/Vol]7 mg/dLNormal7-25The [facility] Health Physician GroupComment on above:Performed By: #### VIN, FE and TIBC, YNYW20QDZ, LDH #### [place] [address] USAHemogram CBC Without Diffon 80-98-4542Nyucdgdooef distribution width (RBC) [Ratio]14.8 %Kvqjuv77.9-15.3The [facility] Health Physician GroupComment on above:Performed By: #### VIN, FE and TIBC, CKXE25NXQ, LDH #### [place] [address] USAHematocrit (Bld) [Volume fraction]26.8 %Low34.0-46.4The [facility] Health Physician GroupComment on above:Performed By: #### VIN, FE and TIBC, OMCR98KQU, LDH #### [place] [address] USAHemoglobin (Bld) [Mass/Vol]8.9 g/dLLow11.8-15.4The [facility] Physician GroupComment on above:Performed By: #### VIN, FE and TIBC, PFNW28SNN, LDH #### [place] [address] USAMCH (RBC) [Entitic mass]28.8 ybOqofxb30.7-34.3The [facility] Physician GroupComment on above:Performed By: #### VIN, FE and TIBC, [id number], LDH #### [place] [address] USAMCV (RBC) [Entitic vol]86.5 yGAedtgi29-867Pgo [facility] Physician GroupComment on above:Performed By: #### VIN, FE and TIBC, WOPF35FNM, LDH #### [place] [address] USAMean Corpuscular HGB Conc33.3 g/iGLdfcnb16.0-35.0The [facility] Physician GroupComment on above:Performed By: #### VIN, FE and TIBC, MLLA68NMH, LDH #### [place] [address] USAPlatelet mean volume (Bld) [Entitic vol]7.4 fLNormal 6.3-10.7The [facility] Health Physician GroupComment on above:Result Comment: PERFORMED BY: [place] [address] PATHOLOGIST BRIEFCASE SEWER PETER COFFEY M.D.Performed By: #### VIN, FE and TIBC, ZORD52ZZL, LDH #### [place] [address] USAPlatelets (Bld) [#/Vol]434 10*3/yPJhodfx392-673Xoh [facility] Physician GroupComment on above:Performed By: #### VIN, FE and TIBC, WUAR84DFD, LDH #### [place] [address] USARBC (Bld) [#/Vol]3.09 10*6/uLLow3.60-5.00The [facility] Health Physician GroupComment on above:Performed By: #### VIN, FE and TIBC, ZKXH22XXX, LDH #### [place] [address] USAWBC (Bld) [#/Vol]10.2 10*3/uLNormal3.8-11.6The [facility] Physician GroupComment on above:Performed By: #### VIN, FE and TIBC, IRFJ51NWF, LDH #### [place] [address] USABasic Metabolic Panelon [id number] gap [Moles/Vol] 10.3 mmol/LNormal6.0-15.0The [facility] Health Physician GroupComment on above:Performed By: #### CBC #### [place] [address] USACalcium [Mass/Vol]8.2 mg/dLLow8.6-10.3The [facility] Health Physician GroupComment on above:Performed By: #### CBC #### [place] [address] USAChloride [Moles/Vol]103 mmol/QWqifau79-137Qqi [facility] Physician GroupComment on above:Performed By: #### CBC #### [place] [address] USACO2 [Moles/Vol]27.4 mmol/UHbhibt54.0-31.0The [facility] Health Physician GroupComment on above:Performed By: #### CBC #### [place] [address] USACreatinine [Mass/Vol]0.44 mg/dLLow0.60-1.20The [facility] Physician GroupComment on above:Performed By: #### CBC #### [place], [place] [address] USACreatinine Clr Calc Kywsiclq23.65NormalThe [facility]ham Health Physician GroupComment on above:Result Comment: PERFORMED BY: [place] [address] PATHOLOGIST BRIEFCASE SEWER PETER COFFEY M.D.Performed By: #### CBC #### [place] [address] USAGFR/1.73 sq M.predicted MDRD (S/P/Bld) [Vol rate/Area] mL/min/{1.73_m2}NormalThe [facility] Health Physician GroupComment on above:Performed By: #### CBC #### [place] [address] USAGlucose [Mass/Vol]114 mg/cQTdqi32-164Izz [facility] Physician GroupComment on above:Result Comment: Random Glucose Reference Range is dependent on time and content of last meal. Glucose of more than 200 mg/dL in a nonstressed, ambulatory subject supports the diagnosis of Diabetes Mellitus. ADA recommended reference rangePerformed By: #### CBC #### [place] [address] USAPotassium [Moles/Vol]3.7 mmol/LNormal3.5-5.1The [facility] Health Physician GroupComment on above:Performed By: #### CBC #### [place] [address] USASodium [Moles/Vol]137 mmol/USkydgb037-237Qoy [facility] Physician GroupComment on above:Performed By: #### CBC #### [place] [address] USAUrea nitrogen [Mass/Vol]9 mg/dLNormal7-25The [facility] Health Physician GroupComment on above:Performed By: #### CBC #### [place] [address] USAHemogram CBC Without Diffon 74-99-4026Mgopuxhzemq distribution width (RBC) [Ratio]14.9 %Skffgf78.9-15.3The [facility] Health Physician GroupComment on above:Performed By: #### CBC #### [place] [address] USAHematocrit (Bld) [Volume fraction]24.6 %Low34.0-46.4The [facility] Health Physician GroupComment on above:Performed By: #### CBC #### [place] [address] USAHemoglobin (Bld) [Mass/Vol]8.1 g/dLLow11.8-15.4The [facility] Health Physician GroupComment on above:Performed By: #### CBC #### [place] [address] USAMCH (RBC) [Entitic mass]28.8 jcIlbmcw78.7-34.3The [facility] Health Physician GroupComment on above:Performed By: #### CBC #### [place] [address] USAV (RBC) [Entitic vol]87.2 bDLcybzl57-257Rbv [facility] Physician GroupComment on above:Performed By: #### CBC #### [place] [address] USAMean Corpuscular HGB Conc33.0 g/iUDksyhv02.0-35.0The [facility] Health Physician GroupComment on above:Performed By: #### CBC #### [place] [address] USAPlatelet mean volume (Bld) [Entitic vol]7.3 fLNormal 6.3-10.7The [facility] Health Physician GroupComment on above:Result Comment: PERFORMED BY: [place] [address] PATHOLOGIST BRIEFCASE SEWER PETER COFFEY M.D.Performed By: #### CBC #### [place] [address] USAPlatelets (Bld) [#/Vol]387 10*3/aTNkfzbk841-279Ovy [facility] Physician GroupComment on above:Performed By: #### CBC #### [place] [address] USARBC (Bld) [#/Vol]2.82 10*6/uLLow3.60-5.00The [facility] Health Physician GroupComment on above:Performed By: #### CBC #### [place] [address] USAWBC (Bld) [#/Vol]9.0 10*3/uLNormal3.8-11.6The [facility] Health Physician GroupComment on above:Performed By: #### CBC #### [place] [address] USAAppearance of UrineOrdered By: Obaydah Daromar on 36-18-7548Xlwqipvumc (U)Urine appearanceClearFJ.W. Ruby [facility] Hospital Bacteria [Presence] in Urine by AutomatedOrdered By: Agatha Grayomar on 47-25-1189Kyffmrdd Auto Ql (U)Bacteria [Presence] in Urine by AutomatedNone Seen [facility]-Titus Medical CenterBasic Metabolic Panelon 35-26-9740Fflkb gap [Moles/Vol]11.7 mmol/LNormal6.0-15.0The [facility] Health Physician GroupComment on above:Performed By: #### CBC #### [facility] [address] [place] [address] USACalcium [Mass/Vol]7.9 mg/dLLow8.6-10.3The [facility] Health Physician GroupComment on above:Performed By: #### CBC #### [facility] [address] [place] [address] USAChloride [Moles/Vol]103 mmol/WJqlmbv95-295Wzf [facility] Physician GroupComment on above:Performed By: #### CBC #### [facility] [address] [place] [address] USACO2 [Moles/Vol]28.4 mmol/JEchlwo12.0-31.0The [facility] Health Physician GroupComment on above:Performed By: #### CBC #### [facility] [address] [place] [address] USACreatinine [Mass/Vol]0.44 mg/dLLow0.60-1.20The [facility] Health Physician GroupComment on above:Performed By: #### CBC #### [facility] [address] [place] [address] USACreatinine Clr Calc Mszmrdsq29.34NormalThe [facility] Health Physician GroupComment on above:Result Comment: PERFORMED BY: [place] [address] PATHOLOGIST BRIEFCASE SEWER PETER COFFEY M.D.Performed By: #### CBC #### [facility] [address] [place] [address] USAGFR/1.73 sq M.predicted MDRD (S/P/Bld) [Vol rate/Area] mL/min/{1.73_m2}NormalThe [facility] Health Physician GroupComment on above:Performed By: #### CBC #### [place] [address] USAGlucose [Mass/Vol]105 mg/oFWivc36-576Njf [facility] Physician GroupComment on above:Result Comment: Random Glucose Reference Range is dependent on time and content of last meal. Glucose of more than 200 mg/dL in a nonstressed, ambulatory subject supports the diagnosis of Diabetes Mellitus. ADA recommended reference rangePerformed By: #### CBC #### [place] [address] USAPotassium [Moles/Vol]4.1 mmol/LNormal3.5-5.1The [facility] Health Physician GroupComment on above:Performed By: #### CBC #### [place] [address] USASodium [Moles/Vol]139 mmol/LSevvqh943-200Sfi [facility] Physician GroupComment on above:Performed By: #### CBC #### [place] [address] USAUrea nitrogen [Mass/Vol]5 mg/dLLow7-25The [facility] Health Physician GroupComment on above:Performed By: #### CBC #### [place] [address] USABilirubin Test strip Ql (U)Ordered By: Agatha Martinez on 74-92-0363Ktqmdnyns Ql (U)Bilirubin.total [Presence] in Urine by Test strip NegativeFisher-Titus Medical CenterBlood Cultureon 31-65-0740Uuhnsbcp identified Cx Nom (Bld)NO GROWTH 5 DAYS PERFORMED BY: [place] [address] PATHOLOGIST BRIEFCASE SEWER PETER COFFEY M.D.NormalThe [facility] Health Physician GroupComment on above: Performed By: #### VIN, FE and TIBC, [id number], LDH #### [place] [address] USABacteria identified Cx Nom (Bld)NO GROWTH 5 DAYS PERFORMED BY: [place] [address] PATHOLOGIST BRIEFCASE SEWER PETER COFFEY M.D.NormalMedical Center Clinic Physician GroupComment on above: Performed By: #### VIN, FE and TIBC, [id number], LDH #### [place] [address] USAColor Auto (U)Ordered By: Agatha Martinez on 09-09-2024 Color (U)Color of Urine by AutoYellowFisher-Titus Medical CenterDipstick and Microscopicon 51-50-8699Ojhvmyofnb (U)ClearNormalClearThe [facility] Health Physician GroupComment on above:Order Comment: Comment add Comment addPerformed By: #### VIN, FE and TIBC, [id number], LDH #### [place] [address] USABacteria,UrineRareNormalNone SeenThe [facility] Health Physician GroupComment on above:Order Comment: Comment add Comment addPerformed By: #### VIN, FE and TIBC, [id number], LDH #### [place] [address] USABilirubin,UrineNegativeNormalNegativeThe [facility] Health Physician GroupComment on above:Order Comment: Comment add Comment addPerformed By: #### VIN, FE and TIBC, [id number], LDH #### [place] [address] USAColor (U)YellowNormalYellowThe [facility]ician Group Comment on above:Order Comment: Comment add Comment addPerformed By: #### VIN, FE and TIBC, [id number], LDH #### [place] [address] USAGlucose Ql (U)NormalNormalNormalThe [facility] Health Physician GroupComment on above:Order Comment: Comment add Comment addPerformed By: #### VIN, FE and TIBC, [id number], LDH #### [facility] [address] [place] [address] USAHyaline Casts,UrineNoneNormal0-8The [facility] Health Physician GroupComment on above:Order Comment: Comment add Comment addPerformed By: #### VIN, FE and TIBC, [id number], LDH #### [address] [address] USAKetones Ql (U)TraceHighNegativeThe [facility] Health Physician GroupComment on above:Order Comment: Comment add Comment addPerformed By: #### VIN, FE and TIBC, [id number], LDH #### [place] [id number] USALeukocyte esterase Test strip Ql (U)NegativeNormalNegative The [facility] Health Physician GroupComment on above:Order Comment: Comment add Comment addPerformed By: #### VIN, FE and TIBC, [id number], LDH #### [place] [id number] USAMucus,UrineRareNormalThe [facility] Health Physician GroupComment on above:Order Comment: Comment add Comment addResult Comment: PERFORMED BY: [place] [address] PATHOLOGIST BRIEFCASE SEWER PETER COFFEY M.D.Performed By: #### VIN, FE and TIBC, [id number], LDH #### [place] [address] USANitrite,UrineNegativeNormalNegativeThe [facility] Health Physician GroupComment on above:Order Comment: Comment add Comment addPerformed By: #### VIN, FE and TIBC, [id number], LDH #### [place] [id number] USAOccult Blood,Urine1+HighNegativeThe [facility] Health Physician GroupComment on above:Order Comment: Comment add Comment addResult Comment: PERFORMED BY: [place] [address] PATHOLOGIST BRIEFCASE SEWER PETER COFFEY M.D.Performed By: #### VIN, FE and TIBC, [id number], LDH #### [place] [address] USApH (U)6.5 [pH]Normal5.0-9.0The [facility] Comment on above:Order Comment: Comment add Comment addPerformed By: #### VIN, FE and TIBC, [id number], LDH #### [place] [address] USAProtein (U) [Mass/Vol]30 mg/dLHighNegativeThe [facility] Health Physician GroupComment on above:Order Comment: Comment add Comment addPerformed By: #### VIN, FE and TIBC, [id number], LDH #### [place] [address] USARBC,Rtmmj9-3Xpmyik0-2Tpe [facility] Physician GroupComment on above:Order Comment: Comment add Comment addPerformed By: #### VIN, FE and TIBC, [id number], LDH #### [place] [address] USASpecificy [place],Urine1.231Dgbeio4.001-1.030The [facility] Health Physician GroupComment on above:Order Comment: Comment add Comment addPerformed By: #### VIN, FE and TIBC, [id number], LDH #### [place] [address] USASquamous Epithelial Cell,Zntsb8-3Weeq3-3Rmw [facility] Physician GroupComment on above:Order Comment: Comment add Comment addPerformed By: #### VIN, FE and TIBC, [id number], LDH #### [place] [address] USAUrobilinogen,UrineNormalNormalNormalThe [facility] Health Physician GroupComment on above:Order Comment: Comment add Comment addPerformed By: #### VIN, FE and TIBC, [id number], LDH #### [place] [address] USAWBC,Nzdge7-2Efhrey7-4Lic [facility] Physician GroupComment on above:Order Comment: Comment add Comment addPerformed By: #### VIN, FE and TIBC, [id number], LDH #### [facility] [address] [place] [address] USAEpithelial cells.squamous [#/area] in Urine sediment by Automated countOrdered By: Obaydah Daromar on 26-10-4130Vynappvwvt cells.squamous Auto (Urine sed) [#/Area]Epithelial cells.squamous [#/area] in Urine sediment by Automated countHigh02FJ.[facility]. [facility] Erythrocytes [#/area] in Urine sediment by Automated countOrdered By: Obaydah Brighter Dental Careomar on 42-26-2018IZF Auto (Urine sed) [#/Area]Erythrocytes [#/area] in Urine sediment by Automated count0-4FJ.W. Ruby Memorial HospitalGlucose [Mass/volume] in Urine by Test stripOrdered By: Obmichelledanoah Brighter Dental Careomar on 09-09-2024 Glucose Test strip (U) [Mass/Vol]Glucose [Mass/volume] in Urine by Test strip NormalFisher-Titus Medical CenterHemoglobin Test strip Ql (U)Ordered By: ObScreenzdaExercise.comomar on 84-08-8875Nqxkzuqffo Ql (U)Hemoglobin [Presence] in Urine by Test stripHighNegMercy Health Allen HospitalHemogram CBC Without Diff on 42-29-5700Ttzrnquhwhr distribution width (RBC) [Ratio]14.8 %Wsnnvf55.9-15.3 The [facility] Health Physician GroupComment on above:Performed By: #### CBC #### [facility] [address] [place] [address] USAHematocrit (Bld) [Volume fraction]24.0 %Low34.0-46.4The [facility] Health Physician GroupComment on above:Performed By: #### CBC #### [facility] [address] [place] [address] USAHemoglobin (Bld) [Mass/Vol]8.0 g/dLLow11.8-15.4The [facility] Health Physician GroupComment on above:Performed By: #### CBC #### [facility] [address] [place], [place] [address]H (RBC) [Entitic mass]29.1 opNgekhn75.7-34.3The [facility] Health Physician GroupComment on above:Performed By: #### CBC #### [place] [address] USAMCV (RBC) [Entitic vol]87.3 kEEdmxat02-847Epo [facility] Physician GroupComment on above:Performed By: #### CBC #### [place] [address] USAMean Corpuscular HGB Conc33.4 g/vDGfoicg40.0-35.0The [facility] Health Physician GroupComment on above:Performed By: #### CBC #### [place] [address] USAPlatelet mean volume (Bld) [Entitic vol]7.4 fLNormal 6.3-10.7The [facility] Health Physician GroupComment on above:Result Comment: PERFORMED BY: [place] [address] PATHOLOGIST BRIEFCASE SEWER PETER COFFEY M.D.Performed By: #### CBC #### [place] [address] USAPlatelets (Bld) [#/Vol]424 10*3/eUIellns421-424Hfc [facility] Physician GroupComment on above:Performed By: #### CBC #### [place] [address] USARBC (Bld) [#/Vol]2.75 10*6/uLLow3.60-5.00The [facility] Health Physician GroupComment on above:Performed By: #### CBC #### [place] [address] USAWBC (Bld) [#/Vol]8.9 10*3/uLNormal3.8-11.6The [facility] Health Physician GroupComment on above:Performed By: #### CBC #### [place] [address] USAHyaline casts [#/area] in Urine sediment by Automated countOrdered By: Agatha Martinez on 01-37-1746Xvgtkbm casts Auto (Urine sed) [#/Area]Hyaline casts [#/area] in Urine sediment by Automated count0-8Fisher-Titus Medical CenterKetones Test strip Ql (U)Ordered By: Agatha Martinez on 73-96-0391Zllnzze Ql (U)Ketones [Presence] in Urine by Test stripHighNegative [facility]itus Medical CenterLaboratory - Microbiology and Antimicrobial susceptibilityOrdered By: Agatha Martinez on 32-84-4911Kzwygwur identified Cx Nom (Bld)NO GROWTH 5 DAYSFisher-Titus Medical CenterBacteria identified Cx Nom (Bld)NO GROWTH 5 DAYSFisher-Titus Medical CenterLeukocyte esterase [Presence] in Urine by Test stripOrdered By: Agatha Martinez on 09-09-2024 Leukocyte esterase Test strip Ql (U)Leukocyte esterase [Presence] in Urine by Test stripNegMercy Health Allen HospitalLeukocytes [#/area] in Urine sediment by Automated countOrdered By: Agatha Martinez on 85-05-3274GIA Auto (Urine sed) [#/Area]Leukocytes [#/area] in Urine sediment by Automated count0-4 [facility]itus Medical CenterMucus [Presence] in Urine by AutomatedOrdered By: Agatha Martinez on 55-07-2010Qhbly Auto Ql (U)Mucus [Presence] in Urine by AutomatedFisher-Titus Medical CenterNitrite Test strip Ql (U)Ordered By: Agatha Martinez on 52-83-2812Kguslgg Ql (U)Nitrite [Presence] in Urine by Test stripNegMercy Health Allen HospitalProtein Test strip (U) [Mass/Vol] Ordered By: Agatha Abraham on 54-31-2930Hwplbop (U) [Mass/Vol]Protein [Mass/volume] in Urine by Test stripHighNegHighland District Hospitalpecific gravity Test strip (U) [Rel density]Ordered By: Agatha Abraham on 10-31-4447Kjiptkou gravity (U) [Rel density]Specific gravity of Urine by Test strip1.001-1.030Fisher-Titus Medical CenterUrine Cultureon 09-09-2024 Bacteria identified Cx Nom (U)<9,000 colonies/ml mixed bacterial skin contaminants 2 Days PERFORMED BY: [place] [address] PATHOLOGIST BRIEFCASE SEWER PETER COFFEY M.D.NormalMedical Center Clinic Physician GroupComment on above: Performed By: #### VIN, FE and TIBC, [id number], LDH #### [facility] [address] [place] [address] USAUrine cultureOrdered By: Obteresita Grayomar on 09-09-2024 Bacteria identified Cx Nom (U)Urine cultureFisher-Titus Medical Center Bacteria identified Cx Nom (U)Urine cultureFisher-Titus Medical Center Urobilinogen Test strip (U) [Mass/Vol]Ordered By: Agatha Grayomar on 09-09-2024 Urobilinogen (U) [Mass/Vol]Urobilinogen [Mass/volume] in Urine by Test strip NormalFisher-Titus Medical CenterpH Test strip (U)Ordered By: Obmichelledanoah Grayomar on 71-29-3167kB (U)pH of Urine by Test strip5.0-9.0Fisher-Titus Medical CenterAlanine aminotransferase [Enzymatic activity/volume] in Serum or PlasmaOrdered By: Obmichelledah Daromar on 21-16-2163NUF [Catalytic activity/Vol] Alanine aminotransferase [Enzymatic activity/volume] in Serum or Plasma7-52 [facility]itus Medical CenterAlbumin [Mass/volume] in Serum or Plasma by Bromocresol green (BCG) dye binding methoOrdered By: Obmichelledah Daromar on 62-95-8080Jcqqzkl BCG dye [Mass/Vol]Albumin [Mass/volume] in Serum or Plasma by Bromocresol green (BCG) dye binding methoLow3.5-5.7FJ.W. Ruby Memorial HospitalAlkaline phosphatase [Enzymatic activity/volume] in Serum or PlasmaOrdered By: Obaydah Daromar on 39-27-0000PKZ [Catalytic activity/Vol]Alkaline phosphatase [Enzymatic activity/volume] in Serum or Ivsnip79-695AadakjpqbFisher-Titus Medical CenterAspartate aminotransferase [Enzymatic activity/volume] in Serum or PlasmaOrdered By: Obmichelledanoah Brighter Dental Careomar on 54-21-5398LXM [Catalytic activity/Vol]Aspartate aminotransferase [Enzymatic activity/volume] in Serum or Mrvopa46-13MwydlvsepFisher-Titus Medical CenterBasophils Auto (Bld) [#/Vol]Ordered By: Obayda Daromar on 01-41-7650Bfeyngecm (Bld) [#/Vol]Automated basophil count 0.0-0.2FJ.W. Ruby Memorial HospitalBasophils/100 WBC Auto (Bld)Ordered By: Obayda Daromar on 37-48-2881Lcavhafyb/100 WBC (Bld)Automated basophil %. Fisher-Titus Medical CenterBilirubin.total [Mass/volume] in Serum or PlasmaOrdered By: Obmichelleda Brighter Dental Careomar on 67-24-2123Fdmzddbbw [Mass/Vol] Bilirubin.total [Mass/volume] in Serum or Plasma0.3-1.0Fisher-Titus Medical CenterBioFire Not Detectedon 76-62-7913HbvTims Not DetectedNot detected NormalNot DetecteThe [facility] Health Physician GroupComment on above:Result Comment: This is a duplicate RP2.1 COVID (PCR) result to be used for statistical tracking purpose only. PERFORMED BY: [place] [address] PATHOLOGIST BRIEFCASE SEWER PETER COFFEY M.D.Performed By: #### BIOFIRECOVNOTDE, RESP PANEL UPP. #### [place] [address] USACOVID-19 Detected/Not DetectedOrdered By: Objacob Isaacunited states marine hospitalr on 91-58-4259DXCR-CoV-2 (COVID-19) RNA JOSE+non-probe Ql (Nph)Not detectedNot DetectAultman HospitalComment on above:This is a duplicate RP2.1 COVID (PCR) result to be used for statistical tracking purpose only.CT angio abdomen pelvison 60-26-0999MP angio abdomen pelvisOHIOHEALTH VAN WERT [facility] [place] [address] [place] [address] CT Scan Report Signed Patient: Ofe Saravia MR#: [id number] 88 : 1955 Acct:[id number] Age/Sex: 68 / F ADM Date: 09/07/24 Loc: Room: [address] [place] [address] Type: ADM IN Attending Dr: Agatha Martinez MD Copies to: Agatha Martinez MD Ordering Provider: Agatha Martinez MD Date of Service: 09/07/24 CT/CT angio abdomen pelvis: acute anemia, symptomatic anemia, recent dx cancer CT angio abdomen pelvis 09/07/2024 10:06 AM SIGNS AND SYMPTOMS: acute anemia, symptomatic anemia, recent dx lung cancer TECHNIQUE: Multidetector ct axial images of the abdomen and pelvis were obtained with IV contrast. Multiplanar and 3-D reformats were performed and reviewed to further define anatomy and possible pathology. CT was performed with one or more of the following dose reduction techniques: Automated exposure control, adjustment of the mA and/or kV according to patient size, or use of iterative reconstruction technique. COMPARISON: 08/08/2004 FINDINGS: Lower Chest: There is dependent airspace opacity consistent with atelectasis at the left lung base. Small bilateral pleural effusions are present. ABDOMEN: Liver: Within normal limits. Bile Ducts: Normal caliber. Gallbladder: No calcified gallstones. Normal caliber wall. Pancreas: There is a 12 mm cyst in the junction of the head and body of the pancreas similar to the prior exam. Spleen: Within normal limits. Adrenals: Within normal limits. Kidneys: There is a simple cyst in the left renal cortex requiring no further follow-up. Pelvis: Reproductive Organs: No pelvic masses. Ureters: Within normal limits. Bladder: A small amount of residual contrast is noted in the bladder. Bowel: Normal caliber. Mesenteric Lymph Nodes: No enlarged mesenteric lymph nodes. Peritoneum: There is a small amount of free fluid in the pelvis which may be physiologic. Vessels: Atherosclerotic changes are noted in the abdominal aorta and its branches. Retroperitoneum: Within normal limits. Abdominal Wall: Mild anasarca is noted in the abdominal wall. Bones: There is an expansile soft tissue mass in the right iliac bone measuring at least 7.3 cm in greatest axial dimension. This was present on the prior exam. Degenerative changes are noted in the visualized thoracolumbar spine. CT/CT angio abdomen pelvis IMPRESSION: No bowel obstruction or obstructive uropathy. No free fluid or free air. There is an expansile soft tissue mass in the right iliac bone measuring at least 7.3 cm in greatest axial dimension. This was present on the prior exam. Small bilateral pleural effusions are present, new compared to the prior exam. A small amount of free fluid is noted in the pelvis which is of uncertain etiology. There is mild anasarca along the abdominal wall. Impression dictated by: Sanjiv Reis M.D.09/08/2024 12:43 AM Dictation Location: [place] [address] Transcribed By: [facility] 09/08/24 0043 Dictated By: Sanjiv Reis II, MD 09/08/24 0036 Signed By: 09/08/24 0043NormBaptist Health Bethesda Hospital East Physician GroupComplete Blood Count Auto Diffon 14-85-2133Xulyembfz (Bld) [#/Vol]0.0 10*3/uLNormal0.0-0.2The [facility] Physician GroupComment on above:Performed By: #### CBC #### [facility] [address] [place] [id number] USABasophils/100 WBC (Bld)0.4 %Normal.The [facility] Health Physician GroupComment on above:Performed By: #### CBC #### [facility] [address] [place] [id number] USAEosinophils (Bld) [#/Vol]0.1 10*3/uLNormal0.0-0.45The [facility] GroupComment on above:Performed By: #### CBC #### [facility] [address] [place] [id number] USAEosinophils/100 WBC (Bld)0.8 %Normal.The [facility] Health Physician GroupComment on above:Performed By: #### CBC #### [facility] [address] [place] [id number] USAErythrocyte distribution width (RBC) [Ratio]14.9 %Normal 11.9-15.3The [facility] Health Physician GroupComment on above:Performed By: #### CBC #### [facility] [address] [place] [address] USAHematocrit (Bld) [Volume fraction]27.1 %Low34.0-46.4The [facility] Health Physician GroupComment on above:Performed By: #### CBC #### [facility] [address] [place] [address] USAHemoglobin (Bld) [Mass/Vol]9.0 g/dLLow11.8-15.4The [facility] Health Physician GroupComment on above:Performed By: #### CBC #### [place] [address] USALymphocytes (Bld) [#/Vol]0.5 10*3/uLLow1.00-4.8The [facility] Health Physician GroupComment on above:Performed By: #### CBC #### [place] [address] USALymphocytes/100 WBC (Bld)4.7 %Normal.The [facility] Health Physician GroupComment on above:Performed By: #### CBC #### [place] [address] USAMCH (RBC) [Entitic mass]29.3 swFssbey27.7-34.3The [facility] Physician GroupComment on above:Performed By: #### CBC #### [place] [address] USAMCV (RBC) [Entitic vol]88.5 eFYtyshs42-704Qpx [facility] Physician GroupComment on above:Performed By: #### CBC #### [place] [address] USAMean Corpuscular HGB Conc33.1 g/tGZhniio32.0-35.0The [facility] Physician GroupComment on above:Performed By: #### CBC #### [place] [address] USAMonocytes (Bld) [#/Vol]0.9 10*3/uLHigh0.0-0.8The [facility] Health Physician GroupComment on above:Performed By: #### CBC #### [facility] [address] [place] [address] USAMonocytes/100 WBC (Bld)9.1 %Normal.The [facility] Health Physician GroupComment on above:Performed By: #### CBC #### [facility] [address] [place] [address] USANeutrophils (Bld) [#/Vol]8.4 10*3/uLHigh1.8-7.7The [facility] Physician GroupComment on above:Performed By: #### CBC #### [facility] [address] [place] [address] USANeutrophils/100 WBC (Bld)85.0 %Normal.The [facility] Health Physician GroupComment on above:Performed By: #### CBC #### [facility] [address] [place] [address] USANRBC%0.1 /100{WBC}Normal0-0.5The [facility] Comment on above:Performed By: #### CBC #### [facility] [address] [place] [address] USAPlatelet mean volume (Bld) [Entitic vol]7.6 fLNormal 6.3-10.7The [facility] Health Physician GroupComment on above:Performed By: #### CBC #### [facility] [address] [place] [address] USAPlatelets (Bld) [#/Vol]463 10*3/zXCmvy190-816Tja [facility] Health Physician GroupComment on above:Performed By: #### CBC #### [facility] [address] [place] [address] USARBC (Bld) [#/Vol]3.06 10*6/uLLow3.60-5.00The [facility] Health Physician GroupComment on above:Performed By: #### CBC #### [facility] [address] [place] [address] USAWBC (Bld) [#/Vol]9.8 10*3/uLNormal3.8-11.6The [facility] Health Physician GroupComment on above:Performed By: #### CBC #### [place] [address] USAComprehensive Metabolic Panelon 94-22-0074Dunwnni [Mass/Vol]2.6 g/dLLow3.5-5.7The [facility] Health Physician GroupComment on above: Performed By: #### BIOFIRECOVNOTDE, RESP PANEL UPP. #### [place] [address] USAAlbumin/Globulin [Mass ratio]0.8 {ratio}NormalThe [facility] Health Physician GroupComment on above:Performed By: #### BIOFIRECOVNOTDE, RESP PANEL UPP. #### [place] [address] USAALP [Catalytic activity/Vol]73 U/VLpvvvd64-138Jpj [facility] Physician GroupComment on above:Performed By: #### BIOFIRECOVNOTDE, RESP PANEL UPP. #### [place] [address] USAALT [Catalytic activity/Vol]26 U/LNormal7-52The [facility] Health Physician GroupComment on above:Performed By: #### BIOFIRECOVNOTDE, RESP PANEL UPP. #### [place] [address] USAAnion gap [Moles/Vol]9.6 mmol/LNormal6.0-15.0The [facility] Health Physician GroupComment on above:Performed By: #### BIOFIRECOVNOTDE, RESP PANEL UPP. #### [place] [address] USAAST [Catalytic activity/Vol]22 U/TZaubem11-63Dtw [facility] Physician GroupComment on above:Performed By: #### BIOFIRECOVNOTDE, RESP PANEL UPP. #### [place] [address] USABilirubin [Mass/Vol]0.5 mg/dLNormal0.3-1.0The [facility] Health Physician GroupComment on above:Performed By: #### BIOFIRECOVNOTDE, RESP PANEL UPP. #### [place] [address] USACalcium [Mass/Vol]8.3 mg/dLLow8.6-10.3The [facility] Health Physician GroupComment on above:Performed By: #### BIOFIRECOVNOTDE, RESP PANEL UPP. #### [place] [address] USAChloride [Moles/Vol]105 mmol/DEemzmd62-383Dth [facility] Health Physician GroupComment on above:Performed By: #### BIOFIRECOVNOTDE, RESP PANEL UPP. #### [place] [address] USACO2 [Moles/Vol]28.2 mmol/VMikftz49.0-31.0The [facility] Health Physician GroupComment on above:Performed By: #### BIOFIRECOVNOTDE, RESP PANEL UPP. #### [place] [address] USACreatinine [Mass/Vol]0.51 mg/dLLow0.60-1.20The [facility] Health Physician GroupComment on above:Performed By: #### BIOFIRECOVNOTDE, RESP PANEL UPP. #### [place] [address] USACreatinine Clr Calc Pajuxzpi08.21NormalThe [facility]ham Health Physician GroupComment on above:Result Comment: PERFORMED BY: [place] [address] PATHOLOGIST BRIEFCASE SEWER PETER COFFEY M.D.Performed By: #### BIOFIRECOVNOTDE, RESP PANEL UPP. #### [place] [address] USAGFR/1.73 sq M.predicted MDRD (S/P/Bld) [Vol rate/Area] mL/min/{1.73_m2}NormalThe [facility] Physician [facility] HospitalComment on above:Performed By: #### BIOFIRECOVNOTDE, RESP PANEL UPP. #### [place] [address] USAGlobulin (S) [Mass/Vol]3.1 g/dLNormalThe [facility] Health Physician GroupComment on above:Performed By: #### BIOFIRECOVNOTDE, RESP PANEL UPP. #### [place] [address] USAGlucose [Mass/Vol]122 mg/mGIyao72-759Dua [facility] Physician GroupComment on above:Result Comment: Random Glucose Reference Range is dependent on time and content of last meal. Glucose of more than 200 mg/dL in a nonstressed, ambulatory subject supports the diagnosis of Diabetes Mellitus. ADA recommended reference rangePerformed By: #### BIOFIRECOVNOTDE, RESP PANEL UPP. #### [place] [address] USAPotassium [Moles/Vol]3.8 mmol/LNormal3.5-5.1The [facility] Health Physician GroupComment on above:Performed By: #### BIOFIRECOVNOTDE, RESP PANEL UPP. #### [place] [address] USAProtein [Mass/Vol]5.7 g/dLLow6.4-8.9The [facility] Health Physician GroupComment on above:Performed By: #### BIOFIRECOVNOTDE, RESP PANEL UPP. #### [place] [address] USASodium [Moles/Vol]139 mmol/LKxgkrp432-843Omt [facility] Health Physician GroupComment on above:Performed By: #### BIOFIRECOVNOTDE, RESP PANEL UPP. #### [place] [address] USAUrea nitrogen [Mass/Vol]7 mg/dLNormal7-25The [facility] Health Physician GroupComment on above:Performed By: #### BIOFIRECOVNOTDE, RESP PANEL UPP. #### [place] [address] USAEosinophils Auto (Bld) [#/Vol]Ordered By: Agatha Martinez on 56-24-3158Eelzrtxkqiv (Bld) [#/Vol]Automated eosinophil count0.0-0.45 [facility] Medical CenterEosinophils/100 WBC Auto (Bld)Ordered By: Agatha Martinez on 40-77-3046Xpwfypafcgj/100 WBC (Bld)Automated eosinophil %. [facility] Medical CenterGlobulin Calc (S) [Mass/Vol]Ordered By: Agatha Martinez on 41-28-5488Dvsxirle (S) [Mass/Vol]Serum globulin measurement by calculation (mass/volume)[facility] Medical CenterHaptoglobinon 12-35-7082Cxdtighcuvi>658Jkzd07-273Pvd [facility] Health Physician GroupComment on above:Result Comment: PERFORMED BY: [facility] [address] [place] [address] PATHOLOGIST BRIEFCASE SEWER PETER COFFEY M.D.Performed By: #### VIN, FE and TIBC, [id number], LDH #### [facility] [address] [place] [address] USAHaptoglobin [Mass/volume] in Serum or PlasmaOrdered By: Agatha Martinez on 47-83-3091Cmbdagtmlcf [Mass/Vol]Haptoglobin [Mass/volume] in Serum or HnmchbAbhx69-267NyynvysmwFisher-Titus Medical CenterINR in Platelet poor plasma by Coagulation assayOrdered By: Agatha Martinez on 42-91-5366LZR Coag (PPP) [Relative time]INR in Platelet poor plasma by Coagulation assayFisher-Titus Medical CenterComment on above:INR Therapeutic Range A) Pre- and Peroperative OAT started two weeks before surgery. NOT HIP SURGERY: 1.5 - 2.5 HIP SURGERY: 2 - 3B) Primary and secondary prevention of venous THROMBOSIS: 2 - 3C) Active venous thrombosis, pulmonary embolismand prevention of recurrent venous thrombosis: 2 - 3D) Prevention of arterial thromboembolismincluding patients with mechanical heart valves: 3 - 4.5Lymphocytes Auto (Bld) [#/Vol] Ordered By: Agatha Martinez on 85-22-9744Klyhcerobiy (Bld) [#/Vol]Lymphocytes [#/volume] in Blood by Automated countLow1.00-4.8[facility] Medical CenterLymphocytes/100 WBC Auto (Bld)Ordered By: michelleformerly [facility] Isaacomar on 09-08-2024 Lymphocytes/100 WBC (Bld)Lymphocytes/100 leukocytes in Blood by Automated count. [facility] Medical CenterMonocytes Auto (Bld) [#/Vol]Ordered By: ObFroedtert Hospitalomar on 25-33-0641Wryaiasan (Bld) [#/Vol]Automated blood monocyte countHigh 0.0-0.8[facility] Medical CenterMonocytes/100 WBC Auto (Bld)Ordered By: ObdaHealthSouth Lakeview Rehabilitation Hospitalomar on 41-59-0063Ikuqsgjhw/100 WBC (Bld)Automated monocyte %. [facility] Medical CenterNeutrophils Auto (Bld) [#/Vol]Ordered By: ObdaHealthSouth Lakeview Rehabilitation Hospitalomar on 29-29-5012Sslrjpsakjo (Bld) [#/Vol]Neutrophils [#/volume] in Blood by Automated countHigh1.8-7.7FJ.[facility] Neutrophils/100 WBC Auto (Bld)Ordered By: [facility] CenterdaHealthSouth Lake[facility] Rehabilitation Hospitalomar on 09-08-2024 Neutrophils/100 WBC (Bld)Automated neutrophil %.[facility] Medical CenterNucleated erythrocytes [Presence] in Blood by Automated countOrdered By: [facility] on 73-46-0671Guuyggrwr RBC Auto Ql (Bld)Nucleated erythrocytes [Presence] in Blood by Automated count0-0.5FJ.[facility] Partial Thromboplastin Timeon 18-76-8615pCEK Coag (Bld) [Time]28.2 sNormal 25.1-36.5The [facility] Health Physician GroupComment on above:Result Comment: A hematocrit value greater than 55% may lead to inaccurate results in coagulation testing. Patients having hematocrit values >55% require a special collection tube for coagulation studies. Please contact the laboratory at [phone] for redraw instructions. PERFORMED BY: [facility] [address] [place] [address] PATHOLOGIST BRIEFCASE SEWER PETER COFFEY M.D.Performed By: #### BIOFIRECOVNOTDE, RESP PANEL UPP. #### [facility] [address] [place] [address] USAProtein [Mass/volume] in Serum or PlasmaOrdered By: Agatha Martinez on 29-67-4215Kxkfgge [Mass/Vol]Protein [Mass/volume] in Serum or PlasmaLow6.4-8.9[facility] Medical CenterProthrombin Time INRon 85-50-2044IFC Coag (PPP) [Relative time]1.4 {INR}NormalThe [facility] Health Physician GroupComment on above:Result Comment: INR Therapeutic Range A) Pre- and Peroperative OAT started two weeks before surgery. NOT HIP SURGERY: 1.5 - 2.5 HIP SURGERY: 2 - 3 B) Primary and secondary prevention of venous THROMBOSIS: 2 - 3 C) Active venous thrombosis, pulmonary embolism and prevention of recurrent venous thrombosis: 2 - 3 D) Prevention of arterial thromboembolism including patients with mechanical heart valves: 3 - 4.5Performed By: #### CBC #### [facility] [address] [place] [address] USAPT Coag (PPP) [Time]16.3 sHigh9.0-12.9The [facility] Health Physician GroupComment on above:Result Comment: A hematocrit value greater than 55% may lead to inaccurate results in coagulation testing. Patients having hematocrit values >55% require a special collection tube for coagulation studies. Please contact the laboratory at [phone] for redraw instructions.Performed By: #### CBC #### [facility] [address] [place] [address] USAProthrombin time (PT)Ordered By: Agatha Martinez on 71-11-9199TZ Coag (PPP) [Time]Prothrombin time (PT)High9.0-12.9[facility] Medical CenterComment on above:A hematocrit value greater than 55% may lead to inaccurate results in coagulation testing. Patientshaving hematocrit values >55% require a special collection tube for coagulation studies. Please c ontact the laboratory at [phone] for redraw instructions.Respiratory (Upper) Panel, PCRon 56-03-1805Qaydjaerfcz (Upper) Panel, PCRAdenovirus Not detected Bordetella parapertussis Not detected Chlamydia pneumoniae Not detected Coronavirus 229E Not detected Coronavirus HKU1 Not detected Coronavirus NL63 Not detected Coronavirus OC43 Not detected Influenza A Not detected Influenza B Not detected Human Metapneumovirus Not detected Mycoplasma pneumoniae Not detected Parainfluenza Virus 1 Not detected Parainfluenza Virus 2 Not detected Parainfluenza Virus 3 Not detected Parainfluenza Virus 4 Not detected Bordetella pertussis-ptxP Not detected Human Rhino/Enterovirus Not detected Resp. Syncytial Virus Not detected COVID-19 Detected/Not Detected Not detected Blank Space FLUA TEST INCLUDES Influenza A tests for the following clinically FLUA TEST INCLUDES significant subtypes: FLUA TEST INCLUDES - Influenza A FLUA TEST INCLUDES - Influenza A H1 FLUA TEST INCLUDES - Influenza A H1 2009 FLUA TEST INCLUDES - Influenza A H3 Blank Space PERFORMED BY: [place] [address] PATHOLOGIST BRIEFCASE SEWER PETER COFFEY M.D.NormalThe [facility] Parham Health Physician GroupComment on above: Performed By: #### BIOFIRECOVNOTDE, RESP PANEL UPP. #### [facility] [address]Respiratory pathogens DNA and RNA panel - Nasopharynx by JOSE with non-probe detectionOrdered By: Agatha Martinez on 87-08-6105Psntouzjyaw pathogens DNA and RNA panel JOSE+non-probe (Nph)Respiratory pathogens DNA and RNA panel - Nasopharynx by JOSE with non-probe detectionFisher-Titus Medical CenterRespiratory pathogens DNA and RNA panel JOSE+non-probe (Nph) Respiratory pathogens DNA and RNA panel - Nasopharynx by JOSE with non-probe detectionFisher-Titus Medical CenterReticulocyte Counton 09-08-2024 Reticulocyte Number0.039 10*6/uLNormal0.024-0.084The [facility] Comment on above:Result Comment: PERFORMED BY: [facility] [address] [place] [address] PATHOLOGIST BRIEFCASE SEWER PETER COFFEY M.D.Performed By: #### CBC #### [facility] [address] [place] [address] USAReticulocyte Percent1.3 %Normal0.5-1.5The [facility] Health Physician GroupComment on above:Performed By: #### CBC #### [facility] [address] [place] [address] USAReticulocytes [#/volume] in BloodOrdered By: Obaydah Daromar on 15-24-8727Eebapbrkodeni (Bld) [#/Vol]Absolute reticulocyte count 0.024-0.084Fisher-Titus Medical CenterReticulocytes/100 RBC Auto (Bld) Ordered By: Obaydah Daromar on 15-89-5159Pnflzixodtqbk/100 RBC (Bld)Reticulocyte % auto0.5-1.5FDelaware County Hospitalerum or plasma albumin/globulin mass ratioOrdered By: Obaydah Daromar on 95-32-5200Induhji/Globulin [Mass ratio] Serum or plasma albumin/globulin mass ratioFisher-Titus Medical CenterWBC Auto (Bld) [#/Vol]Ordered By: Obaydah Daromar on 92-84-4726QCG (Bld) [#/Vol] Leukocytes [#/volume] in Blood by Automated count3.8-11.6FJ.W. Ruby Memorial HospitalaPTT in Platelet poor plasma by Coagulation assayOrdered By: Obaydah Daromar on 71-91-2135mFSW Coag (PPP) [Time]Activated partial thromboplastin time (aPTT) in platelet poor plasma by coagulation a25.1-36.5 [facility] Medical CenterComment on above:A hematocrit value greater than 55% may lead to inaccurate results in coagulation testing. Patientshaving hematocrit values >55% require a special collection tube for coagulation studies. Please contact the laboratory at [phone] for redraw instructions. ABO/Rh Retypeon 02-84-4309XQV/RH Recheck ResultPositiveNormalThe [facility]ham Health Physician GroupComment on above:Result Comment: PERFORMED BY: [place] [address] PATHOLOGIST BRIEFCASE SEWER PETER COFFEY M.D.Complete Blood Count Auto Diffon 78-66-3116Vnwdsbybq (Bld) [#/Vol]0.0 10*3/uLNormal0.0-0.2The [facility] Health Physician GroupComment on above:Result Comment: PERFORMED BY: [place] [address] PATHOLOGIST BRIEFCASE SEWER PETER OCFFEY M.D.Performed By: #### CBC #### [place] [address] USABasophils/100 WBC (Bld)0.4 %Normal.The [facility] Health Physician GroupComment on above:Performed By: #### CBC #### [place] [address] USAEosinophils (Bld) [#/Vol]0.1 10*3/uLNormal0.0-0.45The [facility] Health Physician GroupComment on above:Performed By: #### CBC #### [place] [address] USAEosinophils/100 WBC (Bld)0.8 %Normal.The [facility] Health Physician GroupComment on above:Performed By: #### CBC #### [place] [address] USAErythrocyte distribution width (RBC) [Ratio]14.1 %Normal 11.9-15.3The [facility] Health Physician GroupComment on above:Performed By: #### CBC #### [place] [address] USAHematocrit (Bld) [Volume fraction]24.3 %Low34.0-46.4The [facility] Health Physician GroupComment on above:Performed By: #### CBC #### [place] [address] USAHemoglobin (Bld) [Mass/Vol]7.9 g/dLLow11.8-15.4The [facility] Health Physician GroupComment on above:Performed By: #### CBC #### [place] [address] USALymphocytes (Bld) [#/Vol]0.6 10*3/uLLow1.00-4.8The [facility] Health Physician GroupComment on above:Performed By: #### CBC #### [place] [address] USALymphocytes/100 WBC (Bld)5.2 %Normal.The [facility] Health Physician GroupComment on above:Performed By: #### CBC #### [place] [address] USAMCH (RBC) [Entitic mass]28.9 iyZkizhu98.7-34.3The [facility] Health Physician GroupComment on above:Performed By: #### CBC #### [place] [address] USAMCV (RBC) [Entitic vol]88.6 jSUaftre45-299Iru [facility] Physician GroupComment on above:Performed By: #### CBC #### [place] [address] USAMean Corpuscular HGB Conc32.6 g/iLIklxgl03.0-35.0The [facility] Health Physician GroupComment on above:Performed By: #### CBC #### [place] [address] USAMonocytes (Bld) [#/Vol]1.0 10*3/uLHigh0.0-0.8The [facility] Health Physician GroupComment on above:Performed By: #### CBC #### [place] [address] USAMonocytes/100 WBC (Bld)9.2 %Normal.The [facility] Health Physician GroupComment on above:Performed By: #### CBC #### [place] [address] USANeutrophils (Bld) [#/Vol]9.3 10*3/uLHigh1.8-7.7The [facility] Health Physician GroupComment on above:Performed By: #### CBC #### [facility] [address] [place] [address] USANeutrophils/100 WBC (Bld)84.4 %Normal.The [facility] Health Physician GroupComment on above:Performed By: #### CBC #### [facility] [address] [place] [address] USANRBC%0.0 /100{WBC}Normal0-0.5The [facility] Comment on above:Performed By: #### CBC #### [place] [address] USAPlatelet mean volume (Bld) [Entitic vol]7.8 fLNormal 6.3-10.7The [facility] Health Physician GroupComment on above:Performed By: #### CBC #### [place] [address] USAPlatelets (Bld) [#/Vol]444 10*3/ePQpikkc010-511Gzo [facility] Physician GroupComment on above:Performed By: #### CBC #### [place] [address] USARBC (Bld) [#/Vol]2.74 10*6/uLLow3.60-5.00The [facility] Health Physician GroupComment on above:Performed By: #### CBC #### [place] [address] USAWBC (Bld) [#/Vol]11.0 10*3/uLNormal3.8-11.6The [facility] Health Physician GroupComment on above:Performed By: #### CBC #### [place] [address] USADipstick and Microscopicon 72-72-1544Nwonyshnwm (U)Clear NormalClearThe [facility] Health Physician GroupComment on above:Order Comment: Comment add Comment addPerformed By: #### VIN, FE and TIBC, [id number], LDH #### [place] [id number] USABacteria,UrineNone SeenNormalNone SeenThe [facility] Health Physician GroupComment on above:Order Comment: Comment add Comment addPerformed By: #### VIN, FE and TIBC, [id number], LDH #### [place] [address] USABilirubin,UrineNegativeNormalNegativeThe [facility] Health Physician GroupComment on above:Order Comment: Comment add Comment addPerformed By: #### VIN, FE and TIBC, [id number], LDH #### [place] [address] USAColor (U)YellowNormalYellowThe [facility] Comment on above:Order Comment: Comment add Comment addPerformed By: #### VIN, FE and TIBC, [id number], LDH #### [place] [address] USAGlucose Ql (U)NormalNormalNormalThe [facility] Health Physician GroupComment on above:Order Comment: Comment add Comment addPerformed By: #### VIN, FE and TIBC, [id number], LDH #### [place] [address] USAHyaline Casts,UrineNoneNormal0-8The [facility] Health Physician GroupComment on above:Order Comment: Comment add Comment addResult Comment: PERFORMED BY: [place] [address] PATHOLOGIST BRIEFCASE SEWER PETER COFFEY M.D.Performed By: #### VIN, FE and TIBC, [id number], LDH #### [place] [address] USAKetones Ql (U)1+HighNegativeThe [facility] Comment on above:Order Comment: Comment add Comment addPerformed By: #### VIN, FE and TIBC, [id number], LDH #### [place] [address] USALeukocyte esterase Test strip Ql (U)NegativeNormalNegative The [facility] Health Physician GroupComment on above:Order Comment: Comment add Comment addPerformed By: #### VIN, FE and TIBC, [id number], LDH #### [place] [address] USANitrite,UrineNegativeNormalNegativeThe [facility] Health Physician GroupComment on above:Order Comment: Comment add Comment addPerformed By: #### VIN, FE and TIBC, [id number], LDH #### [place] [address] USAOccult Blood,UrineTraceHighNegativeThe [facility] Health Physician GroupComment on above:Order Comment: Comment add Comment addResult Comment: PERFORMED BY: [place] [address] PATHOLOGIST BRIEFCASE SEWER PETER COFFEY M.D.Performed By: #### VIN, FE and TIBC, [id number], LDH #### [place] [address] USApH (U)6.0 [pH]Normal5.0-9.0The [facility] Comment on above:Order Comment: Comment add Comment addPerformed By: #### VIN, FE and TIBC, [id number], LDH #### [place] [address] USAProtein (U) [Mass/Vol]20 mg/dLHighNegativeThe [facility] Health Physician GroupComment on above:Order Comment: Comment add Comment addPerformed By: #### VIN, FE and TIBC, [id number], LDH #### [place] [address] USARBC,Kkkfq5-1Xksqht8-4Amn [facility] Physician GroupComment on above:Order Comment: Comment add Comment addPerformed By: #### VIN, FE and TIBC, [id number], LDH #### [place] [address] USASpecificy [place],Urine>1.942Wdua8.001-1.030The [facility] Health Physician GroupComment on above:Order Comment: Comment add Comment addPerformed By: #### VIN, FE and TIBC, [id number], LDH #### [place] [address] USASquamous Epithelial Cell,Rncwu6-9Zdyq1-4Kxn [facility] Physician GroupComment on above:Order Comment: Comment add Comment addPerformed By: #### VIN, FE and TIBC, [id number], LDH #### [place] [address] USAUrobilinogen,UrineNormalNormalNormalThe [facility] Physician GroupComment on above:Order Comment: Comment add Comment addPerformed By: #### VIN, FE and TIBC, [id number], LDH #### [place] [address] USAWBC,Trdnq1-5Nlugrz8-0Iwj [facility] Physician GroupComment on above:Order Comment: Comment add Comment addPerformed By: #### VIN, FE and TIBC, [id number], LDH #### [place] [address] USAFerritinon 75-11-4528Jdgmxrln [Mass/Vol]1046.5 ng/mLHigh 11.0-306.8The [facility] Physician GroupComment on above:Order Comment: Comment add Comment addPerformed By: #### VIN, FE and TIBC, [id number], LDH #### [place] [address] USAFerritin [Mass/volume] in Serum or PlasmaOrdered By: Obaydah Daromar on 33-75-1112Dvxrqcxs [Mass/Vol]Ferritin [Mass/volume] in Serum or EiubvrJbjv34.0-306.8[facility]-Titus Medical CenterFolate [Mass/volume] in Serum or PlasmaOrdered By: Obaydah Daromar on 24-83-6361Rmaegy [Mass/Vol]Folate [Mass/volume] in Serum or Plasma>5.9[facility]-Titus Medical CenterComment on above:Folate reference range: >5.9 ng/mlThe WHO technical consultation on folate and vitamin z57ukrdoyeqdtvr has determined that folate concentrations lessthan 4 ng/ml are considered deficient.Iron [Mass/volume] in Serum or PlasmaOrdered By: Agatha Martinez on 69-56-9242Rici [Mass/Vol]Iron [Mass/volume] in Serum or ShtmezOvp17-435ZcwtbvytuFisher-Titus Medical CenterIron and TIBC Profileon 09-07-2024% Iron Saturation6.8 %Prt14-20Kts [facility] Physician GroupComment on above:Order Comment: Comment add Comment addPerformed By: #### VIN, FE and TIBC, [id number], LDH #### [place] [address] USAIron [Mass/Vol]11 ug/fAUne87-276Urh [facility] Physician GroupComment on above:Order Comment: Comment add Comment addPerformed By: #### VIN, FE and TIBC, [id number], LDH #### [place] [id number] USATotal Iron Binding Ftuppjim703 ug/xXPfo591-372Pxb [facility] Physician GroupComment on above:Order Comment: Comment add Comment addPerformed By: #### VIN, FE and TIBC, [id number], LDH #### [place] [id number] USATransferrin [Mass/Vol]115 mg/dVWjr366-863Jpx [facility] Physician GroupComment on above:Order Comment: Comment add Comment addPerformed By: #### IVN, FE and TIBC, [id number], LDH #### [place] [id number] USALDH Lactate Dehydrogenaseon 22-68-8981DFM Lactate Qndaeevcrivkr180 U/LAmwjll971-085Dkh [facility] Physician GroupComment on above: Order Comment: Comment add Comment addPerformed By: #### VIN, FE and TIBC, [id number], LDH #### [place] [id number] USALactate dehydrogenase [Enzymatic activity/volume] in Serum or Plasma by Lactate to pyOrdered By: Agatha Abrahamr on 12-30-6003ZCJ Lactate to pyruvate reaction [Catalytic activity/Vol]Lactate dehydrogenase [Enzymatic activity/volume] in Serum or Plasma by Lactate to tj777-234RcbdkprleFisher-Titus Medical CenterLeukoReduced RBCon 48-45-4985WpockMnjwzlg RBCTRANSFUSED 09/07/24 1412[facility] Physician GroupReminderson [id number]en From: Moira Vasquez To: KERMIT Traore Cedric; Sent: 06/23/2024 13:20:37 EST Show up: 07/24/2024 13:20:00 EST Subject: 2 mo CEASAR Due Date/Time: 08/24/2024 13:20:00 EST Reminder Message Please Remember to:_Pt coming back in 2 mos with CEASAR. Uncertain if this was scheduled. Please ensure it has been scheduled. Thanks! Will also need BMP for her appt, pt did not get order. PATIENT RELATED REMINDER:_ ( ) Call Patient ( ) Ask Patient to ( ) Call Relative ( ) Schedule Patient ( ) Follow up on Results ( ) Other: PROVIDER RELATED REMINDER:_ ( ) Chief Technician X Ray ( ) Call Pharmacy ( ) Call Lab ( ) Other: Special Instructions:_ Comments:_ follow up 09/28/24 duplicate message.[facility] Hospitalerum or plasma iron binding capacity measurement (mass/volume)Ordered By: Agatha Grayomar on 21-60-3190Bqwt binding capacity [Mass/Vol]Iron binding capacity [Mass/volume] in Serum or NuortnWpc788-246WjtgqsppcMorrow County Hospitalerum or plasma iron saturation measurement (mass fraction)Ordered By: Obteresita Daromar on 54-31-2040Icra saturation [Mass fraction]Iron saturation [Mass Fraction] in Serum or PlasmaLow 20-50Fisher-Titus Medical CenterTransferrin [Mass/volume] in Serum or PlasmaOrdered By: Obteresita Daromar on 48-60-4283Radnltwjnuu [Mass/Vol]Transferrin [Mass/volume] in Serum or JrptykWdr456-309HqzkdtyvfFisher-Titus Medical CenterType and Screenon 17-53-8255PAW and Rh group Nom (Bld)Blood group B Rh(D) positive NormalThe [facility] Health Physician GroupComment on above:Order Comment: Comment add Comment addResult Comment: PERFORMED BY: [place] [address] PATHOLOGIST BRIEFCASE SEWER PETER COFFEY M.D.Vit. B12/Folate Profileon 00-82-8406Xrjyiaozr (Vitamin B12) [Mass/Vol]1478 pg/yAKqiz067-014Zvh [facility] Comment on above:Order Comment: Comment add Comment addPerformed By: #### VIN, FE and TIBC, [id number], LDH #### [facility] [address] [place] [address] CGVIkjqlv04.2 ng/mLNormal>5.9The [facility] Comment on above:Order Comment: Comment add Comment addResult Comment: Folate reference range: >5.9 ng/ml The WHO technical consultation on folate and vitamin b12 deficiencies has determined that folate concentrations less than 4 ng/ml are considered deficient. PERFORMED BY: [place] [address] PATHOLOGIST BRIEFCASE SEWER PETER COFFEY M.D.Performed By: #### VIN, FE and TIBC, [id number], LDH #### [facility] [address] [place] [address] USAVitamin B12 ser/plasOrdered By: Agatha Martinez on 85-59-2277Loheuzwzy (Vitamin B12) [Mass/Vol]Vitamin B12 ser/lqdcAzdu127-192 [facility] Medical CenterAlanine aminotransferase [Enzymatic activity/volume] in Serum or PlasmaOrdered By: PROVIDER TEMP on 08-90-6510ZQM [Catalytic activity/Vol]Alanine aminotransferase [Enzymatic activity/volume] in Serum or Plasma7-52Fisher-Titus Medical CenterAlbumin [Mass/volume] in Serum or Plasma by Bromocresol green (BCG) dye binding methoOrdered By: PROVIDER TEMP on 54-79-8014Viaxxzn BCG dye [Mass/Vol]Albumin [Mass/volume] in Serum or Plasma by Bromocresol green (BCG) dye binding methoLow3.5-5.7FJ.W. Ruby Memorial HospitalAlkaline phosphatase [Enzymatic activity/volume] in Serum or PlasmaOrdered By: PROVIDER TEMP on 20-97-1796MSK [Catalytic activity/Vol] Alkaline phosphatase [Enzymatic activity/volume] in Serum or Xwjjye61-824 [facility] Medical CenterAspartate aminotransferase [Enzymatic activity/volume] in Serum or PlasmaOrdered By: PROVIDER TEMP on 66-34-1982FMA [Catalytic activity/Vol]Aspartate aminotransferase [Enzymatic activity/volume] in Serum or Rfrvcz68-62IseehqfrcFisher-Titus Medical CenterBasophils Auto (Bld) [#/Vol]Ordered By: PROVIDER TEMP on 67-39-4259Nkgpobaxh (Bld) [#/Vol]Automated basophil count0.0-0.2FJ.W. Ruby Memorial HospitalBasophils/100 WBC Auto (Bld)Ordered By: PROVIDER TEMP on 91-33-2070Jcihgvrbm/100 WBC (Bld)Automated basophil %.[facility]-Titus Medical CenterBilirubin.total [Mass/volume] in Serum or PlasmaOrdered By: PROVIDER TEMP on 92-03-1398Mfwalbtrx [Mass/Vol] Bilirubin.total [Mass/volume] in Serum or Plasma0.3-1.0[facility] Medical CenterBlood Cultureon 15-95-8518Aioemaki identified Cx Nom (Bld)NO GROWTH 5 DAYS PERFORMED BY: [place] [address] PATHOLOGIST BRIEFCASE SEWER PETER COFFEY M.D.NormalThe [facility] Health Physician GroupComment on above: Performed By: #### VIN, FE and TIBC, [id number], LDH #### [facility] [address] [place] [address] USACNPNon 98-39-8787LCYBTlrogkVxrtkcdvr Clinic ClevelandCOVID Cepheid NegativeOrdered By: David Grant on 59-70-5010HCDP-CoV-2 (COVID-19) Ab IA QlCOVID CepheidNegativeFisher-Titus Medical CenterComment on above: This is a duplicate Cepheid Xpert Xpress CoV-2/Flu/RSV Plus RNA by RT-PCR result to be used for statistical tracking purpose only.COVID-19 / Flu A/B / RSV PCRon 53-07-1946VIXI-CoV-2 (COVID-19) RNA JOSE+probe Ql (Unsp spec)COVID-19 Cepheid Result Negative for SARS-CoV-2 RNA by RT-PCR Flu A Cepheid Result Negative for Flu A RNA by RT-PCR Flu B Cepheid Result Negative for Flu B RNA by RT-PCR RSV Cepheid Result Negative for RSV RNA by RT-PCR COVID19 Blank Space Reference: Negative COVID19 Blank Space Cepheid Disclaimer The Cepheid Xpert Xpress CoV-2/Flu/RSV Plus has Cepheid Disclaimer not been FDA cleared or approved; this test has Cepheid Disclaimer been authorized by FDA under an EUA for use by Cepheid Disclaimer authorized laboratories; this test has been Cepheid Disclaimer authorized only for the simultaneous qualitative Cepheid Disclaimer detection and differentiation of nucleic acids from Cepheid Disclaimer SARS-CoV-2, influenza A, influenza B, and Cepheid Disclaimer respiratory syncytial virus (RSV), and not for any Cepheid Disclaimer other viruses or pathogens; and this test is only Cepheid Disclaimer authorized for the duration of the declaration that Cepheid Disclaimer circumstances exist justifying the authorization of Cepheid Disclaimer emergency use of in vitro diagnostic tests for Cepheid Disclaimer detection and/or diagnosis of COVID-19 under Cepheid Disclaimer Section 564(b)(1) of the Act, 21 U.S.C. 360bbb- Cepheid Disclaimer 3(b)(1), unless the authorization is terminated or Cepheid Disclaimer revoked sooner. PERFORMED BY: [facility] [address] PATHOLOGIST BRIEFCASE SEWER PETER COFFEY M.D.NormalMedical Center Clinic Physician GroupComment on above: Performed By: #### CEPHEID NEG, COVID19 FLU RSV #### [facility] [address] [place] [address] USACT chest w conon 96-88-9626ZZ chest w [facility] [place] [address] [place] [address] CT Scan Report Signed Patient: Ofe Saravia MR#: [id number] [birth year] : 1955 Acct:[id number] Age/Sex: 68 / F ADM Date: 09/06/24 Loc: ER Room: Type: [facility] ER Attending Dr: Copies to: David Grant DO Ordering Provider: David Grant DO Date of Service: 09/06/24 CT/CT chest w con: evaluate for pneumonia CT chest w con 09/06/2024 10:43 PM SIGN AND SYMPTOMS: Chills, decreased oral intake, imbalance, nausea. History of stage IV lung cancer and chronic bronchitis CONTRAST: 90 mL of intravenous Isovue-300 TECHNIQUE: Multidetector CT axial slices of the chest were obtained 08/08/2024 IV contrast. Multiplanar reformats were performed and viewed on a separate workstation and reviewed to further define anatomy and possible pathology. CT was performed with one or more of the following dose reduction techniques: Automated exposure control, adjustment of the mA and/or kV according to patient size, or use of iterative reconstruction technique. COMPARISON: 08/08/2024. FINDINGS: Lower neck: There is slight heterogeneous enlargement of the left thyroid lobe similar to the prior exam. Vessels: Atherosclerotic changes are noted in the thoracic aorta. Mediastinum and Yvonne: Similar lymphadenopathy is noted in the left hilum and left upper mediastinum with a 3.8 cm suprahilar mass in the left upper lobe similar to the prior study. Heart: Normal size. No pericardial effusion. Airways: Within normal limits Lungs: Similar lymphadenopathy is noted in the left hilum and left upper mediastinum with a 3.8 cm suprahilar mass in the left upper lobe similar to the prior study. Increasing adjacent airspace opacity is noted in the left upper lobe. There is an enlarging 8 mm intrapulmonary lymph node along the major fissure on the left suspicious for rio metastatic disease. Pleura: There is a small left-sided pleural effusion. Chest Wall: Within normal limits. Upper Abdomen: There is an 11 mm focus of hypoattenuation within the left hepatic lobe suspicious for metastatic disease. This appears to be new when compared to the prior CT. Bones: There is expansile bony destructive process along the coracoid process of the scapula on the right. This extends into the anterior margin of the glenoid and is consistent with bony metastatic disease. This has increased in size and now measures 5.2 cm in greatest dimension. CT/CT chest w con IMPRESSION: Similar lymphadenopathy is noted in the left hilum and left upper mediastinum with a 3.8 cm suprahilar mass in the left upper lobe similar to the prior study. Increasing adjacent airspace opacity is noted in the left upper lobe. There is an enlarging 8 mm intrapulmonary lymph node along the major fissure on the left suspicious for rio metastatic disease. There is expansile bony destructive process along the coracoid process of the scapula on the right. This extends into the anterior margin of the glenoid and is consistent with bony metastatic disease. This has increased in size and now measures 5.2 cm in greatest dimension. There is a small left-sided pleural effusion. This is new compared prior exam. Impression dictated by: Sanjiv Reis M.D.09/06/2024 11:13 PM Dictation Location: [place] [address] Transcribed By: COLETTE 09/06/242312 Dictated By: Sanjiv Reis II, MD 09/06/242302 Signed By: 09/06/242312[facility] Physician GroupCalcium [Mass/volume] in Serum or PlasmaOrdered By: PROVIDER TEMP on 24-16-6803Adrrywv [Mass/Vol]Calcium [Mass/volume] in Serum or Plasma8.6-10.3FJ.W. Ruby Memorial HospitalCarbon dioxide, total [Moles/volume] in Serum or PlasmaOrdered By: PROVIDER TEMP on 45-30-9710CS2 [Moles/Vol]Carbon dioxide, total [Moles/volume] in Serum or Plasma 21.0-31.0[facility]-Titus Medical CenterCepheid COVID PCR Negativeon 86-68-0874LZFC-CoV-2 (COVID-19) RNA JOSE+probe Ql (Unsp spec)NegativeNormal NegativeThe [facility] Health Physician GroupComment on above:Result Comment: This is a duplicate Cepheid Xpert Xpress CoV-2/Flu/RSV Plus RNA by RT-PCR result to be used for statistical tracking purpose only. PERFORMED BY: [place] [address] PATHOLOGIST BRIEFCASE SEWER PETER COFFEY M.D.Performed By: #### CEPHEID NEG, COVID19 FLU RSV #### [address] [address] USAChloride [Moles/volume] in Serum or PlasmaOrdered By: PROVIDER TEMP on 31-19-0719Dcvgbwnw [Moles/Vol]Chloride [Moles/volume] in Serum or Bixtpr20-878Jklvyxmrr[address] [place], [place] [address]Complete Blood Count Auto Diffon 93-57-3586Eplearlpw (Bld) [#/Vol]0.1 10*3/uLNormal0.0-0.2The [facility] Health Physician GroupComment on above:Result Comment: PERFORMED BY: [place] [address] PATHOLOGIST BRIEFCASE SEWER PETER COFFEY M.D.Performed By: #### VIN, FE and TIBC, [id number], LDH #### [place] [id number] USABasophils/100 WBC (Bld)0.5 %Normal.The [facility] Health Physician GroupComment on above:Performed By: #### VIN, FE and TIBC, [id number], LDH #### [place] [address] USAEosinophils (Bld) [#/Vol]0.1 10*3/uLNormal0.0-0.45The [facility] Health Physician GroupComment on above:Performed By: #### VIN, FE and TIBC, [id number], LDH #### [place] [address] USAEosinophils/100 WBC (Bld)0.5 %Normal.The [facility] Health Physician GroupComment on above:Performed By: #### VIN, FE and TIBC, [id number], LDH #### [place] [address] USAErythrocyte distribution width (RBC) [Ratio]14.1 %Normal 11.9-15.3The [facility] Health Physician GroupComment on above:Performed By: #### VIN, FE and TIBC, [id number], LDH #### [place] [address] USAHematocrit (Bld) [Volume fraction]28.8 %Low34.0-46.4The [facility] Health Physician GroupComment on above:Performed By: #### VIN, FE and TIBC, [id number], LDH #### [place] [address] USAHemoglobin (Bld) [Mass/Vol]9.6 g/dLLow11.8-15.4The [facility] Physician GroupComment on above:Performed By: #### VIN, FE and TIBC, [id number], LDH #### [place] [address] USALymphocytes (Bld) [#/Vol]0.5 10*3/uLLow1.00-4.8The [facility] Health Physician GroupComment on above:Performed By: #### VIN, FE and TIBC, [id number], LDH #### [place] [address] USALymphocytes/100 WBC (Bld)3.2 %Normal.The [facility] Health Physician GroupComment on above:Performed By: #### VIN, FE and TIBC, [id number], LDH #### [place] [address] USAMCH (RBC) [Entitic mass]29.1 xjYbwvhm01.7-34.3The [facility] Health Physician GroupComment on above:Performed By: #### VIN, FE and TIBC, [id number], LDH #### [place] [address] USAMCV (RBC) [Entitic vol]87.2 cDCyudcw73-179Bky [facility] Physician GroupComment on above:Performed By: #### VIN, FE and TIBC, [id number], LDH #### [place] [address] USAMean Corpuscular HGB Conc33.3 g/iZDlrqcz63.0-35.0The [facility] Physician GroupComment on above:Performed By: #### VIN, FE and TIBC, [id number], LDH #### [place] [address] USAMonocytes (Bld) [#/Vol]1.0 10*3/uLHigh0.0-0.8The [facility] Physician GroupComment on above:Performed By: #### VIN, FE and TIBC, [id number], LDH #### [place] [address] USAMonocytes/100 WBC (Bld)21.35 %High0.00-20.00The [facility] Health Physician GroupComment on above:Result Comment: For adults in ED, MDW > 20.0 may be associated with a higher risk of sepsis during the first 12 hrs of hospital admissionPerformed By: #### VIN, FE and TIBC, [id number], LDH #### [place] [address] USAMonocytes/100 WBC (Bld)7.2 %Normal.The [facility] Physician GroupComment on above:Performed By: #### VIN, FE and TIBC, [id number], LDH #### [place] [address] USANeutrophils (Bld) [#/Vol]12.6 10*3/uLHigh1.8-7.7The [facility] Physician GroupComment on above:Performed By: #### VIN, FE and TIBC, [id number], LDH #### [place] [address] USANeutrophils/100 WBC (Bld)88.6 %Normal.The [facility] Physician GroupComment on above:Performed By: #### VIN, FE and TIBC, [id number], LDH #### [place] [address] USANRBC%0.0 /100{WBC}Normal0-0.5The [facility] Comment on above:Performed By: #### VIN, FE and TIBC, [id number], LDH #### [place] [address] USAPlatelet mean volume (Bld) [Entitic vol]7.9 fLNormal 6.3-10.7The [facility] Physician GroupComment on above:Performed By: #### VIN, FE and TIBC, [id number], LDH #### [place] [address] USAPlatelets (Bld) [#/Vol]521 10*3/gAInil818-150Gfz [facility] Physician GroupComment on above:Performed By: #### VIN, FE and TIBC, [id number], LDH #### [place] [address] USARBC (Bld) [#/Vol]3.30 10*6/uLLow3.60-5.00The [facility] Physician GroupComment on above:Performed By: #### VIN, FE and TIBC, [id number], LDH #### [place] [address] USAWBC (Bld) [#/Vol]14.2 10*3/uLHigh3.8-11.6The [facility] Physician GroupComment on above:Performed By: #### VIN, FE and TIBC, [id number], LDH #### [place] [address] USAComprehensive Metabolic Panelon 53-79-2249Cerddef [Mass/Vol]3.1 g/dLLow3.5-5.7The [facility] Physician GroupComment on above: Performed By: #### VIN, FE and TIBC, [id number], LDH #### [place] [address] USAAlbumin/Globulin [Mass ratio]0.8 {ratio}NormalThe [facility] Physician GroupComment on above:Performed By: #### VIN, FE and TIBC, [id number], LDH #### [place] [address] USAALP [Catalytic activity/Vol]96 U/IZpbxpt98-871Rhc [facility] Physician GroupComment on above:Performed By: #### VIN, FE and TIBC, [id number], LDH #### [place] [address] USAALT [Catalytic activity/Vol]28 U/LNormal7-52The [facility] Physician GroupComment on above:Performed By: #### VIN, FE and TIBC, [id number], LDH #### [place] [address] USAAnion gap [Moles/Vol]14.3 mmol/LNormal6.0-15.0The [facility] Physician GroupComment on above:Performed By: #### VIN, FE and TIBC, [id number], LDH #### [place] [address] USAAST [Catalytic activity/Vol]20 U/XXosnwt25-50Tih [facility] Physician GroupComment on above:Performed By: #### VIN, FE and TIBC, [id number], LDH #### [place] [address] USABilirubin [Mass/Vol]0.6 mg/dLNormal0.3-1.0The [facility] Physician GroupComment on above:Performed By: #### VIN, FE and TIBC, [id number], LDH #### [place] [address] USACalcium [Mass/Vol]9.1 mg/dLNormal8.6-10.3The [facility] Physician GroupComment on above:Performed By: #### VIN, FE and TIBC, [id number], LDH #### [place] [address] USAChloride [Moles/Vol]99 mmol/XDmyovb26-945Owv [facility] Physician GroupComment on above:Performed By: #### VIN, FE and TIBC, [id number], LDH #### [place] [address] USACO2 [Moles/Vol]24.8 mmol/YIifuht32.0-31.0The [facility] Physician GroupComment on above:Performed By: #### VIN, FE and TIBC, [id number], LDH #### [place] [address] USACreatinine [Mass/Vol]0.58 mg/dLLow0.60-1.20The [facility] Physician GroupComment on above:Performed By: #### VIN, FE and TIBC, [id number], LDH #### [place] [address] USACreatinine Clr Calc Gzzxoywg95.88NoCritical access hospital Physician GroupComment on above:Result Comment: PERFORMED BY: [place] [address] PATHOLOGIST BRIEFCASE SEWER PETER COFFEY M.D.Performed By: #### VIN, FE and TIBC, [id number], LDH #### [place] [address] USAGFR/1.73 sq M.predicted MDRD (S/P/Bld) [Vol rate/Area] mL/min/{1.73_m2}NormalThe [facility] Physician GroupComment on above:Performed By: #### VIN, FE and TIBC, [id number], LDH #### [place] [address] USAGlobulin (S) [Mass/Vol]3.9 g/dLManatee Memorial Hospital Physician GroupComment on above:Performed By: #### VIN, FE and TIBC, [id number], LDH #### [facility] [address] [place] [address] USAGlucose [Mass/Vol]99 mg/mHHsnihe47-203Gqz [facility] Physician GroupComment on above:Result Comment: Random Glucose Reference Range is dependent on time and content of last meal. Glucose of more than 200 mg/dL in a nonstressed, ambulatory subject supports the diagnosis of Diabetes Mellitus. ADA recommended reference rangePerformed By: #### VIN, FE and TIBC, [id number], LDH #### [place] [address] USAPotassium [Moles/Vol]4.1 mmol/LNormal3.5-5.1The [facility] Physician GroupComment on above:Performed By: #### VIN, FE and TIBC, [id number], LDH #### [place] [address] USAProtein [Mass/Vol]7.0 g/dLNormal6.4-8.9The [facility] Physician GroupComment on above:Performed By: #### VIN, FE and TIBC, [id number], LDH #### [place] [address] USASodium [Moles/Vol]134 mmol/DIrw132-302Bne [facility] Physician GroupComment on above:Performed By: #### VIN, FE and TIBC, [id number], LDH #### [place] [address] USAUrea nitrogen [Mass/Vol]13 mg/dLNormal7-25The [facility] Physician GroupComment on above:Performed By: #### VIN, FE and TIBC, [id number], LDH #### [place] [address] USACreatinine [Mass/volume] in Serum or PlasmaOrdered By: PROVIDER TEMP on 25-06-1820Pmygwxygpu [Mass/Vol]Creatinine [Mass/volume] in Serum or PlasmaLow0.60-1.20[facility]itus Medical CenterEosinophils Auto (Bld) [#/Vol]Ordered By: PROVIDER TEMP on 11-85-9071Yiofwqacxqt (Bld) [#/Vol] Automated eosinophil count0.0-0.45[facility] Eosinophils/100 WBC Auto (Bld)Ordered By: PROVIDER TEMP on 09-06-2024 Eosinophils/100 WBC (Bld)Automated eosinophil %.[facility]-Titus Medical CenterErythrocyte distribution width Auto (RBC) [Ratio]Ordered By: PROVIDER TEMP on 92-36-9578Vgsfesbinzd distribution width (RBC) [Ratio]Erythrocyte distribution width [Ratio] by Automated count11.9-15.3FJ.W. Ruby Memorial HospitalGlobulin Calc (S) [Mass/Vol]Ordered By: PROVIDER TEMP on 09-06-2024 Globulin (S) [Mass/Vol]Serum globulin measurement by calculation (mass/volume) [facility] Medical CenterGlucose [Mass/volume] in Serum or PlasmaOrdered By: PROVIDER TEMP on 61-57-0399Dhotitx [Mass/Vol]Glucose [Mass/volume] in Serum or Etchmg32-719EyukwsrkkFisher-Titus Medical CenterComment on above:ADA recommended reference rangeRandom Glucose Reference Range is dependent on time and content of last meal. Glucose of more than 200 mg/dL in a nonstressed, ambulatory subject supports the diagnosisof Diabetes Mellitus.Hematocrit Auto (Bld) [Volume fraction]Ordered By: PROVIDER TEMP on 92-46-4482Lhtpkegvsz (Bld) [Volume fraction]Hematocrit [Volume Fraction] of Blood by Automated countLow 34.0-46.4FJ.W. Ruby Memorial HospitalHemoglobin [Mass/volume] in Blood Ordered By: PROVIDER TEMP on 51-07-7280Wiaybikmhy (Bld) [Mass/Vol]Hemoglobin [Mass/volume] in IhpfcEnw38.8-15.4FJ.W. Ruby Memorial HospitalLaboratory - Microbiology and Antimicrobial susceptibilityOrdered By: David Grant on 65-61-1977Vqbecozl identified Cx Nom (Bld)NO GROWTH 5 DAYSFisher-Titus Medical CenterBacteria identified Cx Nom (Bld)NO GROWTH 5 DAYSFisher-Titus Medical CenterLactate [Moles/volume] in Serum or PlasmaOrdered By: David Grant on 52-44-1291Wguekig [Moles/Vol]Lactate [Moles/volume] in Serum or Plasma0.5-1.9[facility]-Titus Medical CenterComment on above:Lactic Acid reference range has been updated to 0.5 1.9 mmol/L and the critical range of 2.0 or greater.Lactic Acidon 53-24-3978Ekqakvr [Moles/Vol]1.3 mmol/LNormal0.5-1.9 The [facility] Physician GroupComment on above:Result Comment: Lactic Acid reference range has been updated to 0.5 ? 1.9 mmol/L and the critical range of 2.0 or greater. PERFORMED BY: [address] [place] [address] PATHOLOGIST BRIEFCASE SEWER PETER COFFEY M.D.Performed By: #### VIN, FE and TIBC, [id number], LDH #### [place] [address] USALeukocytes [#/volume] corrected for nucleated erythrocytes in Blood by Automated counOrdered By: PROVIDER TEMP on 59-36-5876YZH corrected for nucl RBC Auto (Bld) [#/Vol]Leukocytes [#/volume] corrected for nucleated erythrocytes in Blood by Automated counHigh3.8-11.6FJ.W. Ruby Memorial HospitalLymphocytes Auto (Bld) [#/Vol]Ordered By: PROVIDER TEMP on 09-06-2024 Lymphocytes (Bld) [#/Vol]Lymphocytes [#/volume] in Blood by Automated countLow 1.00-4.8[facility]-Titus Medical CenterLymphocytes/100 WBC Auto (Bld)Ordered By: PROVIDER TEMP on 54-42-0195Vnhrbhehncm/100 WBC (Bld)Lymphocytes/100 leukocytes in Blood by Automated count.[facility] Auto (RBC) [Entitic mass]Ordered By: PROVIDER TEMP on 17-84-1058BWG (RBC) [Entitic mass]MCH [Entitic mass] by Automated count24.7-34.3FMarietta Osteopathic ClinicHC Auto (RBC) [Mass/Vol]Ordered By: PROVIDER TEMP on 27-79-0924JCDX (RBC) [Mass/Vol]MCHC [Mass/volume] by Automated count32.0-35.0[facility]-Titus Medical CenterMCV Auto (RBC) [Entitic vol]Ordered By: PROVIDER TEMP on 05-90-9994PTG (RBC) [Entitic vol]MCV [Entitic volume] by Automated kwgqe78-177 [facility] Medical CenterMonocyte distribution width [Entitic volume] in Blood by AutomatedOrdered By: PROVIDER TEMP on 23-40-0891Pnoqtmpa distribution width Auto (Bld) [Entitic vol]Monocyte distribution width [Entitic volume] in Blood by AutomatedHigh0.00-20.00[facility]itus Medical CenterComment on above:For adults in ED, MDW > 20.0 may be associated with a higher risk of sepsis during the first 12 hrs of hospital admissionMonocytes Auto (Bld) [#/Vol] Ordered By: PROVIDER TEMP on 09-38-9802Cvfzvnsud (Bld) [#/Vol]Automated blood monocyte countHigh0.0-0.8[facility] Medical CenterMonocytes/100 WBC Auto (Bld)Ordered By: PROVIDER TEMP on 82-92-6343Dcxbbrpqn/100 WBC (Bld)Automated monocyte %.[facility] Medical CenterNeutrophils Auto (Bld) [#/Vol] Ordered By: PROVIDER TEMP on 51-03-4985Wahdanrsihm (Bld) [#/Vol]Neutrophils [#/volume] in Blood by Automated countHigh1.8-7.7FJ.W. Ruby Memorial HospitalNeutrophils/100 WBC Auto (Bld)Ordered By: PROVIDER TEMP on 09-06-2024 Neutrophils/100 WBC (Bld)Automated neutrophil %.[facility] CenterNo Panel InformationOrdered By: PROVIDER TEMP on 67-81-4850Rbyymfmox GFR (CKD-EPI)> 60.0 mL/MinFisher-Titus Medical CenterPharmacy Creatinine Clearance (Chem81.88[facility] Medical CenterNucleated erythrocytes [Presence] in Blood by Automated countOrdered By: PROVIDER TEMP on 09-06-2024 Nucleated RBC Auto Ql (Bld)Nucleated erythrocytes [Presence] in Blood by Automated count0-0.5FJ.W. Ruby Memorial HospitalPlatelet mean volume Auto (Bld) [Entitic vol]Ordered By: PROVIDER TEMP on 85-92-9838Gdxfqmng mean volume (Bld) [Entitic vol]Platelet mean volume [Entitic volume] in Blood by Automated count6.3-10.7FJ.W. Ruby Memorial HospitalPlatelets Auto (Bld) [#/Vol] Ordered By: PROVIDER TEMP on 96-32-4573Duncigfwv (Bld) [#/Vol]Platelets [#/volume] in Blood by Automated qdzdwHybe092-793IxipgscpxFisher-Titus Medical CenterPotassium [Moles/volume] in Serum or PlasmaOrdered By: PROVIDER TEMP on 06-39-5285Accgbkkgp [Moles/Vol]Potassium [Moles/volume] in Serum or Plasma 3.5-5.1FJ.W. Ruby Memorial HospitalProtein [Mass/volume] in Serum or Plasma Ordered By: PROVIDER TEMP on 61-06-4671Culeylk [Mass/Vol]Protein [Mass/volume] in Serum or Plasma6.4-8.9[facility] Medical CenterRBC Auto (Bld) [#/Vol] Ordered By: PROVIDER TEMP on 97-32-3770XKN (Bld) [#/Vol]Erythrocytes [#/volume] in Blood by Automated countLow3.60-5.00[facility] Respiratory specimen influenza A virus, influenza B virus, respiratory syncytical virOrdered By: David Grant on 67-28-3009YDXO-CoV-2 (COVID-19) RNA JOSE+probe Ql (Unsp spec)Respiratory specimen influenza A virus, influenza B virus, respiratory syncytical [facility]ARS[facility] (COVID-19) RNA JOSE+probe Ql (Unsp spec)Respiratory specimen influenza A virus, influenza B virus, respiratory syncytical [facility] Serum or plasma albumin/globulin mass ratioOrdered By: PROVIDER TEMP on 19-68-5748Rfdguhi/Globulin [Mass ratio]Serum or plasma albumin/globulin mass ratioMorrow County Hospitalerum or plasma anion gap determination Ordered By: PROVIDER TEMP on 18-51-5265Cwddc gap [Moles/Vol]Serum or plasma anion gap determination6.0-15.0Morrow County Hospitalodium [Moles/volume] in Serum or PlasmaOrdered By: PROVIDER TEMP on 23-49-5781Zukobp [Moles/Vol]Sodium [Moles/volume] in Serum or EotssmPgb254-761FfbhcocdfFisher-Titus Medical CenterUrea nitrogen [Mass/volume] in Serum or PlasmaOrdered By: PROVIDER TEMP on 85-45-9830Utzt nitrogen [Mass/Vol]Urea nitrogen [Mass/volume] in Serum or Plasma7-25Fisher-[facility] Medical CenterWBC Auto (Bld) [#/Vol]Ordered By: PROVIDER TEMP on 51-37-4465HEQ (Bld) [#/Vol]Leukocytes [#/volume] in Blood by Automated countHigh3.8-11.6FJ.W. Ruby Memorial HospitalCNPNon 09-05-2024 CNPNNormalMemorial Health System Marietta Memorial HospitalCNPNon 16-49-3607QXKARiybozOvqqudfxl Clinic ClevelandMR head/brain wo/w conon 49-94-6741JI head/brain wo/[place] [facility] [address] MRI Report Signed Patient: Ofe Saravia MR#: [id number] : 1955 Acct:[id number] Age/Sex: 68 / F ADM Date: 09/01/24 Loc: MR Room: Type: [facility] Attending Dr: Sarabjit Crowley DO Copies to: Sarabjit Crowley DO Ordering Provider: Sarabjit Crowley DO Date of Service: 09/01/24 MR/MR head/brain wo/w con: C34.81 MRI BRAIN WITHOUT AND WITH INTRAVENOUS CONTRAST CLINICAL DATA: History lung cancer, rule out brain metastases COMPARISON: 11/03/2023 Multiecho, multiplanar imaging of the brain was performed before and after intravenous administration of 18 mL of ProHance. FINDINGS: No restricted diffusion. Central involutional changes. Stable cavernoma right dorsal cesar and possible cavernoma left parietal white matter. Mild hemiatrophy left cerebellar hemisphere. Mild chronic small vessel c hanges. No evidence of abnormal postcontrast enhancement intracranially.. Stable left frontal bone lesion. MR/MR head/brain wo/w con IMPRESSION: Negative for metastatic disease. Stable cavernomas. Impression dictated by: Fran Osorio M.D.09/01/2024 4:10 PM Dictation Location: RADIO-PC-29 Transcribed By: COLETTE 09/01/241609 Dictated By: Fran Osorio MD 09/01/241599 Signed By: 09/01/[address] [place] [address] Physician GroupMagnetic resonance imaging reportOrdered By: Fran Osorio on 55-93-7413Qckve reportOHIOHEALTH VAN WERT [facility] [place] [address] [place] [address] MRI Report Signed Patient: Ofe Saravia MR#: [id number] : 1955 Acct:[id number] Age/Sex: 68 / F ADM Date: 5 Loc: MR Room: Type: [facility] Attending Dr: Sarabjit Crowley DO Copies to: Sarabjit Crowley DO~ Ordering Provider: Sarabjit Crowley DO Date of Service: 09/01/24 MR/MR head/brain wo/w con: C34.81 MRI BRAIN WITHOUT AND WITH INTRAVENOUS CONTRAST CLINICAL DATA: History lung cancer, rule out brain metastases COMPARISON: 11/03/2023 Multiecho, multiplanar imaging of the brain was performed before and after intravenous administration of 18 mL of ProHance. FINDINGS: No restricted diffusion. Central involutional changes. Stable cavernoma right dorsal cesar and possible cavernoma left parietal white matter. Mild hemiatrophy left cerebellar hemisphere. Mild chronic small vessel changes. No evidence of abnormal postcontrast enhancement intracranially.. Stable left frontal bone lesion. MR/MR head/brain wo/w con IMPRESSION: Negative for metastatic disease. Stable cavernomas. Impression dictated by: Fran Osorio M.D.09/01/2024 4:10 PM Dictation Location: RADIO-PC-29 Transcribed By: COLETTE 09/01/241609 Dictated By: Fran Osorio MD 09/01/241599 Signed By: 09/01/24 [facility]0 [facility] Work Phone: CNOVon 48-79-7997USMJHgximhMjndizdhoOhioHealth Nelsonville Health Center CNPNon 47-75-5149WYYWJzgsdqXoemilfjk Clinic ClevelandCNNURSEon 11-51-7014FTVCYPA NormalPromedica Bay Park Hospital ClevelandCNPNon 64-72-1074JJYRWuzxxuYrxxdycqq Clinic ClevelandCNOVon 91-30-1499BYUOXtjtduImaqruazx Clinic Cletrumbull memorial hospitalCNOVSPon 41-69-6270PTFYGAIzennhKabaaeada [facility] CampusCNCNPATEDon 64-71-6502WMSKOFHKQ NormalPromedica Bay Park Hospital ClevelandCNOVon 74-88-8601HJRRAjsvicUvolvqsjy Clinic ClevelandCNPNon 74-12-0719LLEIYtminfExywzpwxu Clinic ClevelandCNOVon 08-23-2024 CNOVNormalCleveland [facility] Hills[facility] CampusCNOVSPon 17-10-0648RACBORQazfaiFymvaqqli Clinic ClevelandREFERRAL FOR ADDITIONAL BIOMARKER AND MOLECULAR TESTINGOrdered By: Malaika Vargas on 66-89-1746RGREGOZacrqrcbe ClinicComment on above:Request has been received for evaluation and the results will be issued separately. [facility] HospitalREFERRAL FOR ADDITIONAL BIOMARKER AND MOLECULAR TESTINGon 56-56-7163MAJXQYQY FOR ADDITIONAL BIOMARKER AND MOLECULAR TESTINGAvita Health System Ontario Hospital on above:Order Comment: Specimen Type: TISSUE SPECIMENOrdering Facility: [facility] Address: [address] [place], [place] [address]Result Comment: Request has been received for evaluation and the results will be issued separately.Performed By: #### APMOL ####[facility] [id number] [address] STATES OF [facility]FFIN HOSPITALCNOVon 94-16-4728BTELSizsamIaxrciokmOhioHealth Nelsonville Health CenterALK (D5F3)on 25-12-7967XQU INTERPRETATIONEquivocalAbnoCleveland Clinic South Pointe Hospital on above:Order Comment: Specimen Type: TISSUE SPECIMENOrdering Facility: [facility] Address: [address] [place], [place] [address]Performed By: #### [id number] ####[facility] LABIA [id number] [place] [address] [place] BLOCK NEF8FskcxmLvnojkvklCleveland Clinic South Pointe Hospital on above:Order Comment: Specimen Type: TISSUE SPECIMENOrdering Facility: [facility] Address: [address] [place], [place] [address]Performed By: #### [id number] ####[facility] LABCLIA [id number] [address] OF [facility] CASE NUMBER [id number] [id number] HealthCare Main Campus on above:Order Comment: Specimen Type: TISSUE SPECIMENOrdering Facility: [facility] Address: [address] [place], [place] [address]Performed By: #### [id number] ####[facility] LABCLIA [id number] [address] STATES OF AMERICAFIXATIVEFormalin, 10% Neutral BufferedNormalCWayne HealthCare Main Campus on above:Order Comment: Specimen Type: TISSUE SPECIMENOrdering Facility: [facility] Address: [address] [place], [place] [address]Performed By: #### [id number] ####[facility] LABCLIA [id number] [place] [address] [place] OF AMERICABRIEF OP NOTon 45-78-4548KROEP OP NOTNormal [facility] BIOPSY SOFT TISS MASS/MUSCLEon 00-16-4625LC BIOPSY SOFT TISS MASS/MUSCLENormalCMercy Health Perrysburg HospitalFISH FOR ALK (2P23) FFPET NSCLCon 02-41-3023YRLF FOR ALK (2P23) FFPET NSCLCNormalCWayne HealthCare Main Campus on above:Order Comment: Specimen Type: TISSUE SPECIMENOrdering Facility: [facility] Address: [address] [place], [place] [address]Result Comment: FISH for ALK (2p23) FFPET NSCLCLaboratory Accession Number: [id number]: [id number]/Part ID: [id number] Type: FFPETSample Description: SOFT TISSUE, RIGHT SHOULDER, CORE BIOPSYReceived Date: 09/20/2024Number of nuclei scored: 50RESULT: Result Reference RangeALK Rearrangement 4% (0-14%)INTERPRETATION:Interphase FISH was negative for a rearrangement involving the ALKgene at 2p23.2.Nomenclature: nuc demetrio(ALKx3~11)[36/50]METHODOLOGY:A dual color, break-apart probe specific to the ALK gene at 2p23.2([employer], [place], [place]) was used in this interphase FISHanalysis todetect the presence of an ALK rearrangement. The slideswere scored manually.REFERENCES:1) Latoya EL, Carson YDilcia, Nevaeh ANDRADE, et al. Anaplastic Lymphoma KinaseInhibition in Idu-Upamk-Iapg Lung Cancer. N Engl J Wmj7234;363:4518-4027.2) Gregorio NI, Ramon PT, Holden MB, et al. Molecular TestingGuideline for the Selection of Lung Cancer Patients for EGFR and ALKTyrosine Kinase Inhibitors: Guideline fromthe College of AmericanPathologists, Internatonal Association for the Study of Lung Cancer,and Association for Molecular Pathology. J Mol Diagn 2013;15:415-53.3) NCCN Clinical Practice Guidelines in Oncology: Non-Small Cell LungCancer, National Comprehensive Cancer Network, Inc. Available atNCCN.org.4) Kev SJ, Porfirio Gann M, Elba S, et al. Unique clinicopathologicfeatures characterize ALK-rearranged lung adenocarcinoma in thewestern population. Clin Cancer Res 2009;15:9934-9859.LIMITATIONS:This test will not identify all rearrangements involving ALK. Rare,cryptic abnormalities may be below the resolution of the assay, or mayotherwise be undetected. Specimen size, quality or representati venesscan affect the quality of the result. This assay has been validatedfor paraffin-embedded tissues fixed with 10% neutral bufferedformalin. Decalcification agents and fixation agents containing heavymetals, e.g. B5, or harsh acid or base components (e.g. Bouin'ssolution) can adversely impact assay performance.DISCLAIMER:This test was developed and its performance characteristics determinedby [facility]'s Pathology and Laboratory Medicine Department. Ithas not been cleared or approved by the FDA. [facility] Hospitalth[facility] is regulated under CLIAas certified to perform high-complexity testing. This test is used forclinical purposes. It should notbe regarded as investigational or forresearch.Interpretation performed at [facility], [address] [place] [address]. [place] Number: [id number] reviewed by Yolanad Lott MD, PhDPerformed By: #### FSHLNG ####CLARITY CIARA TODD [id number] [facility] [id number] [place] [address] STATES OF AMERICAFISH FOR RET (10Q11.21)on 57-74-9704QUNH FOR RET (10Q11.21)NormalMemorial Health System Marietta Memorial Hospital Comment on above:Order Comment: Specimen Type: TISSUE SPECIMENOrdering Facility: [facility] Address: [address] [place], [place] [address]Result Comment: FISH for RET (10q11.21)Laboratory Accession Number: [id number]: [id number]/Part ID: [id number] Type: FFPETSample Description: SOFT TISSUE, RIGHT SHOULDER, CORE BIOPSYReceived Date: 09/15/2024Number of nuclei scored: 50RESULT: Result Reference RangeRET Rearrangement 6% (0-14%)INTERPRETATION:A rearrangement involving the RET gene at 10q11.21 was not detected.Clinical and pathological correlation is recommended.Nomenclature: nuc demetrio(RETx3~11)[35/50]METHODOLOGY:A dual color,break apart probe specific to the RET gene at 10q11.21([employer], [place], [place]) was used in this interphase FISHassay to detect the presence of a RET rearrangement. The slides werescored manually.REFERENCES:Katheryn A, Skinner L, Hasanoyoni A, et al. Response to Cabozantinib inpatients with RETfusion-positive lung adenocarcinomas. Cancer Saqbja3029;3:630-52. Michelle ERICKSON. RET revisited: expanding the oncogenic portfolio. NatRev Cancer 2014;14:173-863. Mejia C, et al. Molecular methods for somatic mutation testing inlung adenocarcinoma: EGFR and beyond. Trans Lung Cancer Sfh7976;4:126-414. National Comprehensive Cancer Network (NCCN) Clinical PracticeGuidelines in Oncology, Non-Small CellLung Cancer, Available atWVCN.orgLIMITATIONS:This test will not identify all rearrangements in RET. Rare, crypticabnormalities may be below the resolution of the assay, or mayotherwise be undetected.Specimen size, quality or representativenesscan affect the quality of the results. This assay has been validatedfor tissues fixed with neutral buffered formalin. Decalcificationagents and fixation agents containing heavy metals, e.g. B5, or harshacid or base components (e.g. Bouin's solution) can adversely impactassay performance.DISCLAIMER:This test was developed and its performance characteristics determinedby [facility]'s Pathology and Laboratory Medicine Department. Ithas not been cleared or approved by the FDA. [facility] Hospitalth[facility] Medicine [facility] is regulated under CLIAas certified to perform high-complexity testing. This test is used forclinical purposes. It should not be regarded as investigational or forresearch.Interpretation performed at [facility], [address] [place] [address]. CLIA Number: [id number] reviewed by Elizabeth sheppard MD, PhDPerformed By: #### RET ####CLARITY ILLUMINA LIMSCLIA [id number] [address] OF AMERICAHISTORY PHYSICAL on 07-76-1580YMXXLVL PHYSICALNormalCMercy Health Perrysburg HospitalNLONGS PE[facility] PROGon 87-49-2377IJTSNHB PROGNormalMemorial Health System Marietta Memorial HospitalNLONGS [facility]AK [facility] PROGNormal [facility] Memorial HospitalPD-L1 22C3on 89-47-9501LM BIOMARKER DISCLAIMERNormal [facility] Memorial HospitalComment on above:Order Comment: Specimen Type: TISSUE SPECIMENOrdering Facility: [facility] Address: [address] [place], [place] [address]Result Comment: Laboratory Developed Test (LDT) Disclaimer:Performance characteristics of immunohistochemical, immunofluorescent and chromogenic in-situ hybridization tests have been determined by the performing laboratory within [facility]???s Alexei Bowers Pathology and Laboratory Medicine Department ([facility], [facility], [facility], [facility], [facility], [facility], or [facility]) in a manner consistent with CLIA requirements. One or more of these tests have not been cleared or approved by the FDA.[facility] is regulated under CLIA as qualified to perform high- complexity testing. These tests are used for clinical purposes. They should not be regarded as investigational or for research. Positive and negative controls stain appropriately.Performed By: #### [id number] ####[facility] LABCLIA [id number] [address]Performed By: #### [id number] ####[facility] LABCLIA [id number] [address] [place] BLOCK SEH2QfgreoIvvligeltCleveland Clinic South Pointe Hospital on above:Order Comment: Specimen Type: TISSUE SPECIMENOrdering Facility: [facility] Address: [address] [place], [place] [address]Performed By: #### [id number] ####[facility] LABCLIA [id number] [address]ETBIOMARKER INTERPRETATION COMMENT AND REFERENCE RANGEAvita Health System Ontario Hospital on above:Order Comment: Specimen Type: TISSUE SPECIMENOrdering Facility: [facility] Address: [address] [place], [place] [address]Result Comment: Interpretation standard:TPS: The Tumor Proportion Score is the percentage of the viable tumor cells demonstrating partial or completed membrane staining of any intensity.Reference Range for PDL1 expression in Non-Small Cell Lung Cancer (NSCLC)TPS less than 1%: NegativeTPS between 1 - 49%: Low PositiveTPS greater than 50%: High PositiveThe PDL1 expression of Non-Small Cell Lung Cancer (NSCLC) is interpreted to determine if the patient should be considered for treatment with either pembrolizumab (KEYTRUDA) or cemiplimab-rwlc (LIBTAYO).Please refer to the Product label for additional information.KEYTRUDA - (https://www.keytrudahcp.com/prescribing-information/)LIBTAYO - (https:// www.Sparrow.LoopUp/sites/default/files/Libtayo_FPI.pdf)Performed By: #### [id number] ####[facility] LABCLIA [id number] [address], [place] [address] [place] OF AMERICAResult Comment: Reference range for ALK (D5F3):Positive: strong and diffuse cytoplasmic staining inany number of tumor cellsEquivocal: weak and/or focal cytoplasmic stainingNegative: absence of cytoplasmic staining tumor cells.Interpretation comments:As fluorescent in situ hybridization can help resolve equivocal IHC results, any equivocal results will be reflexed to ALK-FISH. The molecular study's results will be reported separately.Reference:1. Gregorio NI., Ramon PT., Diane DL., et al. Updated Molecular Testing Guideline for the Selection of Lung Cancer Patients for Treatment With Targeted Tyrosine Kinase Inhibitors. Guideline From the College of British Virgin Islander Pathologists, the International Association for the Study of Lung Cancer, and the Association for Molecular Pathology. Arch PatholLab Med. 2018 Sep;142(3):321-346. doi: 10.5858/arpa.4966-2005-XS. Epub 2017Aug 10. PMID: 74533031.2. Mera BRADSHAW., Prakash ERICKSON., Arian M., et al. An International Interpretation Study Using the ALK IHC Antibody D5F3 and a Sensitive Detection Kit Demonstrates High Concordance between ALK IHC and ALK FISH and between Evaluators. J Thorac Oncol. 2014 November;9(5):631-8. doi: 10.1097/JTO.6277002436653428. PMID: 69795235; PMCID: FEC5575885.3. Antoni Rutledge., Filiberto Ibrahim, Rl Cardona, et al. A Sensitive ALK Immunohistochemistry F[employer] Laborer/Designer Diagnostic Test Identifies Patients Eligible for Treatment with Titus otinib. J Thorac Oncol. 2017 November;12(5):804-813. doi: 10.1016/j.jtho.2017.01.020. Epub 2016Aug 17. PMID: 29752801.Performed By: #### [id number] ####[facility] LABCLIA [id number] [address] STATES OF AMERICABIOMARKER METHODNormalCMercy Health Perrysburg Hospital Comment on above:Order Comment: Specimen Type: TISSUE SPECIMENOrdering Facility: [facility] Address: [address] [place] [address] Performed By: #### [id number] ####[facility] LABCLIA [id number] [address] [place] [address] [place] Performed By: #### [id number] ####[facility] LABCLIA [id number] [address] [place] [address] [place] [facility] [place] Comment on above:Order Comment: Specimen Type: TISSUE SPECIMENOrdering Facility: [facility] Address: [address] [place] [address] Performed By: #### [id number] ####[facility] LABCLIA [id number] [address] [address] [place] FINAL PERFORMING LABNormalCMercy Health Perrysburg HospitalCommclaren bay special care hospital on above:Order Comment: Specimen Type: TISSUE SPECIMENOrdering Facility: [facility] Address: [address] [place], [place] [address]Result Comment: Diagnostic interpretation performed at: [facility], [address] [place] [address] [place] [address] CLIA# [id number] Director: Josué Bach MDElectronically signed out by: CALUDIA Hansenerformed By: #### [id number] ####[facility] LABCLIA [id number] [address] [place] [address] [place] AMERICAResult Comment: Diagnostic interpretation performed at: [facility], [facility] [place] [address] CLIA# [id number] Director: Josué Bach MDElectronically signed out by: CLAUDIA Peterserformed By: #### [id number] ####[facility] LABCLIA [id number] [address] [place] [address] [place] OF AMERICAFIXATIVENormalCMercy Health Perrysburg HospitalCommclaren bay special care hospital on above:Order Comment: Specimen Type: TISSUE SPECIMENOrdering Facility: [facility] Address: [address] [place], [place] [address]Performed By: #### [id number] ####[facility] LABCLIA [id number] [place] [address] [place] AMERICAPD-L1 22C3 TPS (LUNG) INTERPRETATIONPositiveAbnoCleveland Clinic South Pointe Hospital on above:Order Comment: Specimen Type: TISSUE SPECIMENOrdering Facility: [facility] Address: [address] [place], [place] [address]Performed By: #### [id number] ####[facility] LABCLIA [id number] [place] [address] [place] AMERICAPD-L1 TUMOR TYPEOther (See Comment)[facility] on above:Order Comment: Specimen Type: TISSUE SPECIMENOrdering Facility: [facility] Address: [address] [place], [place] [address]Result Comment: See original report Performed By: #### [id number] ####[facility] LABCLIA [id number] [place] [address] [place] TUMOR PROPORTION SCORE (TPS)50NormRiverview Health Institute on above: Order Comment: Specimen Type: TISSUE SPECIMENOrdering Facility: [facility] Address: [address] [place], [place] [address]Performed By: #### [id number] ####[facility] LABCLIA [id number] [place] [address] [place] AMERICAPT EDon 22-39-6243EV EDNormalCMercy Health Perrysburg HospitalROS1 GENE REARRANGEMENTon 69-20-9853FSEF FOR ROS1 (6Q22)[facility] on above:Order Comment: Specimen Type: TISSUE SPECIMENOrdering Facility: [facility] Address: [address] [place], [place] [address]Result Comment: FISH for ROS1(6q22)Laboratory Accession Number: [id number]: [id number]/Part ID: [id number] Type: FFPETSample Description: SOFT TISSUE, RIGHT SHOULDER, CORE BIOPSYReceived Date: 09/15/2024Number of nuclei scored: 50RESULT: Result Reference RangeROS1 Rearrangement 0% (0-14%)INTERPRETATION:A rearrangement involving the ROS1 gene at 6q22.1 was not detected.Clinical and pathological correlation is recommended.Nomenclature: nuc demetrio(ROS1x3~13)[1650]/(ROS1x1)[50]METHODOLOGY:A dual color, break apart probe specific to the ROS1 gene at 6q22.1([employer], [place]) was used in this interphase FISHassay to detect the presence of a ROS1 rearrangement. The slides werescored manually.REFERENCES:1) Tanmay KD, Quan LOVE. Molecular Pathways: ROS1 Fusion Proteins inCancer. Clin Cancer Res 2013;15:1-6. Alex Johnson Tung-JueB, et al. Crizotinib in Ros1-Rearranged Non-Small Cell Lung Cancer.New Encl J Med 2014;21:1963-712) Alex Johnson Yung-Jue B, et al. Crizotinib inROS1-Rearranged Non-Small Lung Cancer. New Engl J Med 2014;21:1963-713) Mejia Hayes, et al. Molecular methods for somatic mutation testing inlung adenocarcinoma: EGFR and beyond. Transl Lung Cacer Pdj5509;4:126-414) Pamela M, Bethanie A, Soraya C, et al. ROS1 rearrangementsin lung adenocarcinoma: prognostic impact, therapeutic options andgenetic variability. Oncotarget 2015; e-pub ahead of print, September.5) National Comprehensive Cancer Network (NCCN) Clinical PracticeGuidelines in Oncology, Non-Small Cell Lung Cancer. Available atNCCN.orgLIMITATIONS:This test will not identify all rearrangements in ROS1. Rare, crypticabnormalities may be below the resolution of the assay, or mayotherwise be undetected. Specimen size, quality or representativenesscan affect the quality of the results. This assay has been validatedfor tissues fixed with neutral buffered formalin. Decalcificationagents and fixation agents containing heavy metals, e.g. B5, or harshacid or base components (e.g. Bouin's solution) can adversely impactassay performance.DISCLAIMER:This test wasdeveloped and its performance characteristics determinedby [facility]'s Pathology and Laboratory Medicine Department. Ithas not been cleared or approved by the FDA. [facility] is regulated under CLIAas certified to perform high-complexity testing. This test is used forclinical purposes. It should not be regarded as investigational or forres earch.Interpretation performed at [facility], [address] [place] [address]. CLIA Number: [id number] reviewed by Elizabeth Munoz MD, PhD Performed By: #### ROS1 ####CLARITY ILLUMINA LIMSCLIA [id number] [address] STATES OF [facility]FF[facility] HOSPITALSURGICAL PATHOLOGYon [id number] REPORTNoCleveland Clinic South [facility]inte [facility] on above:Order Comment: Specimen Type: TISSUE SPECIMENOrdering Facility: [facility] Address: [address] [place], [place] [address]Result Comment: Surgical Pathology Report Case: [id number] Provider: Mayi Araiza MD Collected: 08/10/2024 09:05 AMOrdering Location: [place] [address] Received: 08/10/2024 05:42 PMPathologist: Carla Worley MDSpecimen: Bone and Soft Tissue, lytic osseous lesion with soft tissue mass, bx soft tissue componentPerformed By: #### S ####[facility] LABCLIA [id number] [place] [address] [place] CLINICAL HISTORYsoft tissue and bone lesion in the right shoulderNoOhioHealth Nelsonville Health CenterCommclaren bay special care hospital on above:Order Comment: Specimen Type: TISSUE SPECIMENOrdering Facility: [facility] Address: [address] [place], [place] [address]Performed By: #### S ####[facility] LABCLIA [id number] [place] [address] [place] AMERICADIAGNOSIS COMMENTNoC[facility] Clinic [facility] on above:Order Comment: Specimen Type: TISSUE SPECIMENOrdering Facility: [facility] Address: [address] [place], [place] [address]Result Comment: The history of a left upper lung lobe mass and right shoulder pain is noted. Histolo gic examination reveals irregular epithelial nests. The neoplastic cells are positive for CK5/6 andp40, and negative for TTF-1, CDX2, GATA3, supporting the above diagnosis. Although this immunoprofile is not entirely specific, a metastatic carcinoma of lung primary cannot be excluded.Laboratory Developed Test (LDT) Disclaimer:Performance characteristics of immunohistochemical, immunofluorescent and chromogenic in-situ hybridization tests have been determined by the performing laboratory withinPromedica Bay [facility] Hospital???s [facility] Pathology and Laboratory Medicine Department ([facility], [facility], [facility], [facility], [facility], [facility], or [facility]) in a manner consistent with CLIA requirements. One or more of these tests have not been cleared or approved by the FDA. [facility] is regulated under CLIA as qualified to perform high-complexity testing. These tests are used for clinical purposes. They should not be regarded as investigational or for research. Positive and negative controls stain appropriately.Performed By: #### S ####[facility] LABCLIA [id number] [address] DIAGNOSISNormRiverview Health Institute on above:Order Comment: Specimen Type: TISSUE SPECIMENOrdering Facility: [facility] Address: [address] [place], [place] [address]Result Comment: A. Soft tissue, right shoulder, core biopsy:- Metastatic carcinoma with squamous differentiation. See comment. Performed By: #### S ####[facility] LABIA [id number] [address] PERFORMING LABNormRiverview Health Institute on above:Order Comment: Specimen Type: TISSUE SPECIMENOrdering Facility: [facility] Address: [address] [place] [id number] Comment: Diagnostic interpretation performed at: [facility], [address] [place] [address], [facility] [place] [address] CLIA# [id number] Director: CLAUDIA Rojaserformed By: #### S ####[facility] LABIA [id number] [place] [address] [place] AMERICAGROSS DESCRIPTIONNormalCWayne HealthCare Main [facility] on above:Order Comment: Specimen Type: TISSUE SPECIMENOrdering Facility: [facility] Address: [address] [place], [place] [address]Result Comment: A. Bone and Soft TissueReceived in formalin labeled lytic osseous lesion with softtissue mass are multiple white-hernández rubbery to slightly firm cylindrical segments of tissue aggregating to 2.0 x 0.7 x 0.1 cm. The specimens are totally submitted in formalin in 1 cassette.KVB August 11, 2024 8:57 AMGross examination performed at [facility], [address] [place], [place] [address]Performed By: #### S ####CENTERVILLEIA [id number] [place] [address] [place] AMERICATARGETED ONCOLOGY PANEL NEXT GENERATION SEQUENCING OTHERon 31-09-4178HRHGWLPC ONCOLOGY PANEL NEXT GENERATION SEQUENCING OTHERNormal [facility] on above:Order Comment: Specimen Type: TISSUE SPECIMENOrdering Facility: [facility] Address: [address] [place], [place] [address]Result Comment: [facility] Targeted Oncology PanelLaboratory Accession Number: [id number] #: [id number] #: [id number] Type: FFPET% Tumor: 75CASE SUMMARY:A KRAS G12C and a TP53 hotspot alterations are detected, see detailsbelow. Please note that the detected TP53 variant has been previouslyreported as a pathogenic germline change in individuals with Li- Fraumeni syndrome. This testingcannot distinguish between germlineand somatic variants. If clinically indicated, genetic counseling andgermline testing are recommended.*Unless otherwise stated, all assay hotspot regions have been t ested(see EVALUATED GENES below) and only positive genes are reported.RESULTS:Single Nucleotide Vari ants/Indels:KRAS\X09\p.Htn52Yoy\X09\NM_033360.2:c.34G>T\X09\34.1% VAF, Depth 6282x, Nv1VC34\X09\p.Sag279Ygn\X09\NM_000546.5:c.839G>A\X09\50.5% VAF, Depth 4292x, Rg6Facs Number Gains: None detectedRNA Fusions and Aberrant Transcripts: None detectedVARIANT INTERPRETATIONS:KRAS p.Gtu74Gyx NM_033360.2:c.34G>TThe clinically significant G12C variant in KRAS was detected in thisspecimen. KRAS theo-oncogene encodes for a small GTPase familyprotein, K-Vega, which plays landry role cell proliferation regulation.KRAS hot spot mutations, especially in exon 2, and amplifications arecommon in colorectal, non-small cell lung and pancreatic cancers(PMID: 30677874, 56225991, 32463180).Biomarker Therapy AssociationsBenefit: COLORECTAL CANCER: [Adagrasib + Cetuximab, Adagrasib +Panitumumab, Sotorasib + Cetuximab, Sotorasib + Panitumumab]; NON-SMALL CELL LUNG CANCER: [Sotorasib, Adagrasib]; HEPATOBILIARY CANCER:[Adagrasib]; PANCREATIC ADENOCARCINOMA: [Adagrasib, Sotorasib];AMPULLARY CANCER: [Sotorasib, Adagrasib]Resistance: COLORECTAL CANCER: [Cetuximab, Panitumumab, Tucatinib +Trastuzumab]TP53 p.Zvj092Les NM_000546.5:c.839G>AThe clinically significant R280K variant in TP53 was detected in thisspecimen. TP53 encodes for tumor protein p53, a community health nurse factorinvolved in DNA damage pathway, cell cycle arrest and apoptosis (PMID:39716192). Germline mutations occur in cancer predisposition syndromeand Li-Fraumeni syndrome (PMID: 56803528). Somatic missense and lossof function mutations are common in every tumor type and some impartresistance to chemotherapy (PMID: 8272988).Variants ofuncertain significance detected:None detectedRegions with coverage <100x:NoneMETHODOLOGY:Extracted nucleic acid from the specimen, both DNA and RNA, weresubjected to separate targeted amplification reactions, using [employer] primers designed by [employer] ([employer], [place], [place]). Hotspots and selected fusions in generegions listed below were sequenced using Illumina ([place], [place])2x150 paired-end cycle chemistry. A customized bioinformaticsanalytical platform was used for read alignment (Genome IxmvxKIBx80/hg19), variant identification and annotation. Sing le nucleotidevariants (SNVs), insertion, deletion (indels) and copy number gainvariants are detected by DNA sequencing. Select fusions and aberranttranscripts (EGFR vIII and MET exon 14 skipping transcripts) aredetected by RNA sequencing. Variants are classified according toestablished guidelines (1 ). Reported results include variants ofstrong or potential clinical significance and variants of unclearclinical significance. Benign population polymorphisms are notincluded in the report. If relevant, standard of care therapies forvarious solid tumor types/indications (FDA-approved biomarker orstandard biomarker recommended by a professional society) are providedin the variant interpretation section, as well as markers resistant toFDA-approved drugs. This information is not to be considered arecommendation for therapy.Based on validation, the DNA testing delivered an average of >500xcoverage and >99% of targeted regions showed over 100x coverage. Aminimum coverage depth of 100 reads is required across the entireregion of interest; a list of low coverage areas is included in thereport as applicable. The test demonstrated 100% sensitivity and 100%specificity in identifying SNVs, indels and copy number gains. Thelower limit of detection of this assay is approximately 5% variantallele fraction (VAF) for SNV/indels and 6 copies or greater for copynumber gains. Variants below these thresholds may be reported at thediscretion of the molecular pathology professional staff if thetechnical quality of the sequencing is sufficient at that location andthe call is unequivocal.Based onvalidation, the RNA fusion testing averaged >150,000 totalreads. The test demonstrated 93% sensitivity and 100% specificity ingene fusion identification compared to NGS sequencing, and 69%sensitivity and 100% specificity compared to FISH of fusion drivers(unknown fusion partner). Overall sensitivity is 78% and accuracy is99%. The lower limit of detection is approximately 1% of totalsequencing r nya.LIMITATIONS:Sequence changes outside the analyzed alterations hotspots, includingintronic and noncoding regions, will not be identified by this test.Insertions and deletions larger than 20 and 40 bp, respectively, maynot be identified by this test. Negative results from specimens forwhich the percentage of tumor cells is 10% or less should beinterpreted with caution. Although variant allele fraction is providedas a percentage, this is not a quantitative test. RNA fusionsinvolving alternative partners or breakpoints outside of the targetedregions cannot be detected by this test. This testdoes notdistinguish between somatic and inherited variants.Tumor heterogeneity, tumor burden, specim en degradation or otherlimitations of the technology may affect the sensitivity and limit ofdetection, either broadly across the regions of interest or forspecific regions and may lead to false negative results.For tumor tissue, fixation in neutral buffered formalin or alcohol ispreferred. Decalcification agents and fixation agents containing heavymetals (e.g., B5) or harsh acid or base components (e.g., Bouin'ssolution) can inhibit PCR reactions. Peripheral blood and bone marrowaspirate specimens should be collected in EDTA.Hotspots, copy number variants and selected fusions evaluated by thisassay can aid in the diagnostic and therapeutic assessment of avariety of tumor types, including non- small cell lung cancer,melanoma, colorectal cancer, prostate cancer, breast cancer,glioblastoma, thyroid cancer and others (2-12). This panel can alsoprovide focused tumor profiling for patients with locallyadvanced/metastatic disease, who are candidates for anti-cancertherapy, to identify uncommon but targetable alterations (13, 14).Clinical and histopathological correlation required.EVALUATED GENES:Gene Transcript Exon(s)ALKT1 NM_005163 3ALK NM_004304 21-25AR NM_000044 6, 8BRAF NM_004333 11, 15CDK4 NM_000075 2UIXJP8 NM_001904 3, 7-8DDR2 NM_006182 5EGFR NM_005228 3, 7, 12, 15, 18-31PNSZ2 NM_004448 8, 17- 69JTPF2 NM_001982 2-3, 6, 8-9ERBB4 NM_005235 18ESR1 NM_000125 8FGFR1 NM_023110 12-14, 16-24FQPD3 NM_000141 7-9, 12, 77OVIA7 NM_000142 7, 9, 14, 54VGO67 NM_002067 4, 5GNAQ NM_002072 4, 5GNAS NM_080425 8H3-3A NM_002107 2H3-3B NM_005324 2HRAS NM_005343 2,3IDH1 NM_005896 4IDH2 NM_002168 4JAK1 NM_002227 14- 16JAK2 NM_004972 14JAK3 NM_000215 11-12, 15KIT NM_000222 8-11, 13, 17KRAS NM_033360 2-5QPN1P1 NM_002755 2-3, 0AXT7G0 NM_030662 2MET NM_000245 14, 16, 19MTOR NM_004958 30, 39-40, 43,47, 53NRAS NM_002524 2-4PDGFRA NM_006206 12, 14, 74KOW7OJ NM_006218 2, 5-6, 8, 10, 14, 19, 21RAF1 NM_002880 7, 12RET NM_020975 11, 13, 15-16ROS1 NM_002944 36, 38SMO NM_005631 4, 6, 8-9TERT NM_198253 P ntgqvsrKH83 NM_000546 5, 7, 8*Only hotspots within designated exons are covered, full exons are notsequenced.Genes reported for copy number gains: ALK, AR BRAF, CCND1, CDK4, CDK6,EGFR, ERBB2, FGFR1, FGFR2, FGFR3, FGFR4, KIT, KRAS, MET, MYC, MYCN,PDGFRA, KHF2OXHysyjcj detected in RNA:Gene Detected FusionsABL1 EML1::JMI7KVU9 MAGI3::OCA7TSP A2M::ALK, ACTG2::ALK, ALK::PTPN3, ATIC::ALK, P8ijr89::ALK, CARS::ALK, CLIP4::ALK, CLTC::ALK, DCTN1::ALK, EML4::ALK, ZDV6FWT2::ALK, HIP1::ALK, KIF5B::ALK, KLC1::ALK, MEMO1::ALK, NCOA1::ALK, UUSKX5I::ALK, RANBBP2::ALK, IYN57H2_MWG65I::ALK, SMEK2::ALK, STRN::ALK, TFG::ALK, TPM1::ALK, TPM3::ALK, TPM4::ALK, TPR::ALK, TRAF1::ALK, VCL::ALKAXL BRIGIDO::MBIPBRAF AGTRAP:BRAF, AKAP9::BRAF, CDC27::BRAF, JEV442P::BRAF, FCHSD1::BRAF, QSLL2496::BRAF, PAPSS1::BRAF, DLX85S1::BRAF, SND1::BRAF, MKJ0CI8::BRAF, TRIM24::BRAFEGFR EGFR vIII transcriptERBB2 WIPF2::OVIJ9AVX CCD26V3:ERG, TMPRSS2:ERGFGFR1 BAG4::FGFR1, ERLIN2::FGFR1, FGFR1::XHUB3JAGK6 FGFR2::AFF3, FGFR2::BICC1, FGFR2::CASP7, FGFR2::CIT, FGFR2::LYEC8474_BWMR4, FGFR2::MGEA5, FGFR2::OFD1, FGFR2::TACC1, PAX33F4::EANZ3DNAK1 FGFR3::AES, FGFR3::MPIWP0J2, FGFR3::ELAVL3, FGFR3::LDZV4ABV MET Exon 14 Skipping, AGDDN4X4::MET, Z8ljp11::MET, CAPZA2::MET, OXR1::MET, TFG::MET, TPR::MET, PTPRZ1::METNTRK1 BCAN::NTRK1, CD74::NTRK1, KHAI::NTRK1, WQO8SA4::NTRK1, LMNA::NTRK1, MPRIP::NTRK1, NFASC::NTRK1, NTRK1::CDVG7X5, PFX264::NTRK1, SQSTM1::NTRK1, SSBP2::NTRK1, TFG::NTRK1, TPM3::NTRK1, TPR::NJOT2OYNA3 AFAP1::NTRK2, AGBL4::NTRK2,NACC2::NTRK2, QKI::NTRK2, SQSTM1::NTRK2, TRIM24::NTRK2, VCL::EMLJ3OIYR2 BTBD1::NTRK3, COX5A::NTRK3,ETV6::YMQW5YDLLYS SCAF11::PDGFRAPPARG PAX8::PPARGRAF1 Q2LWDC1::RAF1, ESRP1::GUP1YZBT V60wez18::RELARET ACBD5::RET, AFAP1::RET, AKAP13::RET, CCDC6::RET, CUX1::RET, ERC1::RET, FKBP15::RET, GOLGA5::RET,HOOK3::RET, VRVH3527::RET, KIF5B::RET, KTN1::RET, NCOA4::RET, PCM1::RET, HZZQO9A::RET, RUFY2::RET, BUAGR2C::RET, BJJ3SK5::RET, TRIM24::RET, TRIM27::RET, TRIM33::RETROS1 CCDC6:ROS1, CD74::ROS1, CEP85L::ROS1, CLIP1::ROS1, CLTC::ROS1, ERC1::ROS1, EZR::ROS1, GOPC::ROS1, HLA_A::ROS1, KDELR2::ROS1, REYK3956::ROS1, LRIG3::ROS1, MSN::ROS1, MYO5A::ROS1, PPFIBP1::ROS1, PWWP2A::ROS1, SDC4::ROS1, KHR81Z0::ROS1, TFG::ROS1, TPM3::ROS1, ZCCHC8::NCE6MMEJPX8 TMPRSS2::ERG, TMPRSS2::ETV1, TMPRSS2::ETV4, TMPRSS2::E PP1PJRZXDIXCO:1) Katie LOPEZ, et al. Standards and Guidelines for the Interpretation andReporting of Sequence Variants in Cancer: A Joint ConsensusRecommendation of the Association for Molecular Pathology,[facility] Healthety of Clinical Oncology, and College of [place] Pathologists. JMol Diagn. 2017 Jul;19(1):4-23. doi: 10.1016/j.jmoldx.2016.10.002.PMID: 07169313; PMCID: VOA6355571.2) Jerrell C, Jes SA, Cleopatra AM. Recurrent gene fusions inprostate cancer. Kaela Rev Cancer. 2008 Jan;8(7):497-511. doi:10.1038/jau0465. Epub 2007Jan 05. PMID: 26797212; PMCID: VYW1625412.3) Dayanna SC, Tyler LA. The genomic landscape of prostate cancer.Front Endocrinol ([facility]). 2011December 02;3:69. doi:10.3389 /fendo.2012.72621. PMID: 76098878; PDM5100490.4) Amol C, et al. Breast Cancer Genomics: Primary and Most CommonMetastases. Cancers ([place]). 2021Jan 07;14(13):3046. doi:10.3390/fdgvjst29536018. PMID: 04309002; PMCID: BYZ7801227.5) Alisson R, Inocencia DAVISJ, CJ. Health And Safety Instructor Oncogenes but Not as We Know Them: Targetable Fusion Genes in Breast Cancer. Cancer Discov. 2018Sep;8(3):272- 275. doi: 10.1158/6034-9259.CD-18-0091. PMID: 18774820;PMCID: GMU9951327.6) Damien A, Vik J, Po JW, Breezy N, Teddy T, Anastacio CS. The GenomicLandscape of Thyroid Cancer Tumourigenesis and Implications forImmunotherapy. Cells. 2020November 17;10(5):1082. doi:10.3390/rqtgn62843352. PMID: 23489451; PMCID: SOS0718696.7) Kathy et al. Molecular Biomarkers for the Evaluation ofColorectal Cancer: Guideline From the AmericanSociety for ClinicalPathology, College of [place] Pathologists, Association for MolecularPathology, and the [place] Society of Clinical Oncology. J ClinOncol. 2017 November 17;35(13):2062-3956. doi: 10.12 00/JCO.2016.71.9807.Epub 2016Aug 25. PMID: 85101375.8) Immanuel WILLARD et al. Updated Molecular Testing Guideline for theSelection of Lung Cancer Patients for Treatment With Targeted TyrosineKinase Inhibitors: Guideline From the College of AmericanPathologists, the International Association for the Study of LungCancer, and the Association for Molecular Pathology. Arch Pathol LabMed. 2018 Sep;142(3):321-346. doi: 10.5858/arpa.1007-4827-SA. Kljv3178 Aug 10. PMID: 70477420.9) Cancer Genome [employer] Research Network. Comprehensive genomiccharacterization defines human glioblastoma genes and core pathwa ys.Nature. 2007May 11;455(8202):1061-8. doi: 10.1038/beziqn71703. Swsc6578 Mar 23. Erratum in: Nature. 2012Sep 16;494(7324):506. PMID:29096833; PMCID: CPM6306416.10) Teresita LIND, Gloria M. Glioblastoma Genomics: A Very ComplicatedStory. In: De Vleeschouwer S, newspaper editor. Glioblastoma [Internet].[place] ([place]): [employer]; 2016Apr 15. Chapter 1. PMID:42120776.11) Merced S, Klemadyov N, Anderson H. Melanoma genomics: a bkhlb-cp-xyo-artreview of practical clinical applications. Br J Dermatol. ;185(2):272-281. doi: 10.1111/bjd.01902. Epub 2020Dec 23. PMID:70446041.12) Markell L, Joann. An update on molecular genetics ofgastrointestinal stromal tumours. J Clin Pathol. ;59(6):557-63. doi: 10.1136/jcp.2005.219432. PMID: 56200386; PMCID:DER4498903.13) Kory ER, Feli M, Juliann BARRONB, Velia TL, Carolina LL. Molecularprofiling for precision cancer therapies. Genome Med. 2019;12(1):8. doi: 10.1186/h45654-401-1853-3. PMID: 35843301; PMCID:YYO6332462.14) Bart Reis etal. Somatic Genomic Testing in Patients WithMetastatic or Advanced Cancer: ASCO Provisional Clinical Opinion. JClin Oncol. 2021Oct 27;40(11):6754-7894. doi: 10.1200/JCO.21.36516.Epub 2021Sep 05. Erratum in: J Clin Oncol. 2021Jan 06;40(18):2068.PMID: 14359006.15) Bart Lind al. OncoKB: OncoKB: A Precision OncologyKnowledge Base. JCO Precis Oncol. 2017 Jan;2017:PO.17.94706. doi:10.1200/PO.17.30285. Epub 2016December 02. PMID: 40770387; PMCID:OUM9268105.DISCLAIMER:This test was developed and its performance characteristics determinedby [facility]. Ithas not been cleared or approved by the FDA. [facility] is regulated under CLIAas certified to perform high-complexity testing. This test is used forclinical purposes. It should not be regarded as investigational or forresearch.Testing and interpretation performed at [facility], [address] [place] [address]. CLIA Number: [id number] reviewed by CLAUDIA Swansonerformed By: #### TOPTO ####CLAR[facility] ILLUMINA LIMSCLIA [id number] [place] [address] [place] AMERICAUS thyroidon [id number] [facility] [place] [address] Ultrasound Report Signed Patient: Ofe Saravia MR#: [id number] [birth year] : 1955 Acct:[id number] Age/Sex: 68 / F ADM Date: 08/09/24 Loc: Room: Type: [facility] CLI Attending Dr: Darian Barclay PA-C Ordering Provider: Darian Barclay PA-C Date of Service: 08/09/24 US/US thyroid: E04.1 Copies to: Darian Barclay PA-C US thyroid 08/09/2024 3:50 PM SIGNS AND SYMPTOMS: E04.1 COMPARISON: 08/08/2024. FINDINGS: The thyroid tissue is hyperemic and heterogeneous. The right thyroid lobe measures 5.29 cm x 1.61 cm x 1.94 cm and the left thyroid lobe measures 5.64 cm x 1.94 cm x 2.78 cm cm. The isthmus measures 0.21 cm Multiple nodules are noted bilaterally. The largest on the right is at the inferior pole. This is isoechoic, spongiform, as warranted tall orientation, and lacks calcifications, and has smooth well- defined margins. This measures 2.6 x 1.8 x 2.1 cm. The largest nodule on the left is at the interpolar region to the inferior pole measuring 2.0 x 1.5 x 2.1 cm in greatest dimension. This is spongiform, has well-circumscribed margins, and is wider than tall orientation, has isoechoic echotexture, and lacks calcifications. No cervical lymphadenopathy is noted. US/US thyroid IMPRESSION: TIRADS: 1 (benign) Findings are consistent with multinodular goiter bilaterally. Recommendation: No further ultrasound follow-up is recommended. Impression dictated by: Sanjiv Reis M.D.08/09/2024 8:14 PM Dictation Location: [place] [address] Tech: Macy Perez Transcribed By: COLETTE 08/09/242013 Dictated By: Sanjiv Reis II, MD 08/09/242004 Signed By: 08/09/242013NoCritical access hospital Physician GroupBlood Urea Nitrogenon 08-08-2024 Urea nitrogen [Mass/Vol]23 mg/dLNormalValor Health Physician GroupComment on above:Order Comment: Comment add Comment addPerformed By: #### VIN, FE and TIBC, [id number], LDH #### [facility] [address] [place] [address] USACT abdomen pelvis w conon [id number] abdomen pelvis w [facility] [place] [address] [place] [address] CT Scan Report Signed Patient: Ofe Saravia MR#: [id number] [birth year] : 1955 Acct:[id number] Age/Sex: 68 / F ADM Date: 08/08/24 Loc: [place] Room: [facility] Attending Dr: Darian Barclay PA-C Copies to: Darian Barclay PA-C Ordering Provider: Darian Barclay PA-C Date of Service: 08/08/24 CT/CT abdomen pelvis w con: M89.9 ([id number]) CT/CT chest w con: M89.9 CT CHEST, ABDOMEN AND PELVIS WITH INTRAVENOUS CONTRAST: CLINICAL HISTORY: Lytic bone lesion right shoulder. COMPARISON: None TECHNIQUE: TECHNIQUE: Spiral images were obtained through the chest, abdomen and pelvis following the administration of IV contrast. This CT exam was performed using one or more following dose reduction techniques: Automated exposure control, adjustment of the mA and/or kV according to patient size, or use of iterative reconstruction technique. FINDINGS: CT chest: Mediastinum:Heterogenous appearing thyroid gland. Thoracic aorta appears normal caliber. Pulmonary trunk appears nondilated. No pleural effusion. Enlarged AP window lymph node measuring 2 cm in short axis. The esophagus is grossly unremarkable. Lungs:Left upper lobe mass 3.4 x 2.9 x 3.1 cm. The mass abuts the major fissure with adjacent satellite nodularity noted. Minimal lung scarring. No pneumothorax or pleural effusion. Soft tissues/Bones: Soft tissues demonstrate no acute findings. Lytic lesion involving the right scapula at the level of the glenoid with soft tissue component. No additional bony destructive lesion is seen. Degenerative changes. CT abdomen and pelvis: Organs:Hepatic steatosis. Gallbladder portal vein spleen and adrenal glands appear unremarkable. Focally dilated duct versus cyst involving the pancreatic neck measuring 12 mm in greatest axial dimension. Subcentimeter low attenuating lesions are seen within the kidneys too small fracture characterization. Abdominal aorta is normal in caliber.[ GI: Stomach is grossly unremarkable. Small bowel appears nondilated. No acute colonic abnormality is seen.[ Pelvis:[Urinary bladder is grossly unremarkable. Uterus is grossly unremarkable. No adnexal mass. 2.8 cm left ovarian cyst.] Peritoneum/Retroperitoneum:No free air or free fluid or lymphadenopathy.[ Abd wall/Bones:Abdominal wall demonstrates no acute findings. Osseous structures demonstrate degenerative change. A lytic lesion with soft tissue component is seen involving the right iliac bone measuring 7.2 x 4.4 cm in greatest axial dimensions. CT/CT chest w con IMPRESSION: 1. Left upper lobe mass 3.4 x 2.9 x 3.1 cm with adjacent satellite nodules. Malignancy with local metastatic disease is suspected. 2. Enlarged AP window lymph node suspicious for metastatic disease. 3. Lytic lesion with soft tissue components involving the right scapula and right iliac bone suggestive of bony metastatic disease. Impression dictated by: Miguel Panda Jr., D.O.08/08/2024 10:23 AM Dictation Location: [place] [address] Transcribed By: [facility] 08/08/24 1023 Dictated By: Miguel Panda Jr, DO 08/08/24 1014 Signed By: 08/08/24 1023NoCritical access hospital Physician GroupCreatinineon 08-08-2024 Creatinine [Mass/Vol]0.71 mg/dLNormal0.60-1.20[facility] Comment on above:Order Comment: Comment add Comment addPerformed By: #### VIN, FE and TIBC, [id number], LDH #### [facility] [address] [place] [address] USAGFR/1.73 sq M.predicted MDRD (S/P/Bld) [Vol rate/Area] mL/min/{1.73_m2}NormalThe [facility] Physician [facility] HospitalComment on above:Order Comment: Comment add Comment addResult Comment: PERFORMED BY: [place] [address] PATHOLOGIST BRIEFCASE SEWER PETER COFFEY M.D.Performed By: #### VIN, FE and TIBC, [id number], LDH #### [facility] [address] [place] [address] USACreatinine [Mass/volume] in Serum or PlasmaOrdered By: Darian Barclay on 93-80-9335Nlsvwxwmex [Mass/Vol]Creatinine [Mass/volume] in Serum or Plasma0.60-1.20Fisher-Titus Medical CenterNM bone scan whole body on 31-16-5009SC bone scan whole bodyOHIOHEALTH VAN [facility]ERT [facility] [address] [place] [address] [place] [address] Nuclear Medicine Report Signed Patient: Ofe Saravia MR#: [id number] [birth year] : 1955 Acct:[id number] Age/Sex: 68 / F ADM Date: 08/08/24 Loc: [place] Room: Type: [facility] Attending Dr: Darian Barclay PA-C Copies to: Miguel Panda Jr, DO Darian Barclay PA-C Ordering Provider: Darian Barclay PA-C Date of Service: 08/08/24 [facility] bone scan whole body: E04.1 WHOLE-BODY BONE SCAN: CLINICAL HISTORY: Lytic lesion seen on x-ray right shoulder. COMPARISON: CT chest, abdomen and pelvis performed earlier today. TECHNIQUE: Following the intravenous administration of 24.0 mCi of technetium 99m labeled MDP, delayed minified views of the entire skeleton were obtained. FINDINGS: There is normal distribution of radionucleotide within the axial and appendicular skeleton. Abnormal radiotracer activity is seen involving the right scapula consistent with the patient's known lytic lesion. Additional increased uptake is seen involving the right iliac bone also consistent with the patient's known lytic lesion seen on the CT study. No additional areas of focal abnormal uptake is seen. Presumed degenerative changes are seen involving the shoulders, visualized left elbow, hips, knees, ankles and feet. There appears to be retained radiotracer within the right kidney when compared to the left suggesting a degree of obstruction. [facility] bone scan whole body IMPRESSION: ABNORMAL RADIOTRACER UPTAKE IS SEEN INVOLVING THE RIGHT SCAPULA AND RIGHT ILIAC BONE CONSISTENT WITH THE PATIENT'S KNOWN LYTIC LESIONS. RETAINED RADIOTRACER UPTAKE INVOLVING THE RIGHT KIDNEY WHEN COMPARED TO THE LEFT SUGGESTING A DEGREE OF OBSTRUCTION. NO OBSTRUCTING MASS OR STONE IS SEEN ON THE CT STUDY. Impression dictated by: Miguel Panda Jr., D.O.08/08/2024 12:39 PM Dictation Location: [place] [address] Transcribed By: COLETTE 08/08/24 1239 Dictated By: Miguel Panda Jr, DO 08/08/24 1235 Signed By: 08/08/24 1239[facility] Physician Forrest General HospitalNo Panel InformationOrdered By: Darian Barclay on 93-81-7500Natyndoen GFR (CKD-EPI)> 60.0 mL/MinFisher-Titus Medical CenterPharmacy Creatinine Clearance (ChemN/[facility] CenterUrea nitrogen [Mass/volume] in Serum or PlasmaOrdered By: Darian Barclay on 00-27-2958Ixgj nitrogen [Mass/Vol]Urea nitrogen [Mass/volume] in Serum or Plasma7-25Fisher-Titus Medical CenterNURSING PROGon 23-76-9849LXPTDDM PROGNormalMemorial Health System [facility] Hospital25([place])D3 SerPl-mCncon - hydroxyvitamin D3 [Mass/Vol]67.6 ng/uYZasmhf87.0-80.0[facility] Comment on above:Order Comment: Specimen Type: BLOOD SPECIMENOrdering Facility: [facility] Address:[address] [place], [place] [address]Result Comment: Classification of 25 [place] Vitamin D status:Deficiency/Insufficiency: < or = 30 ng/ml.Sufficiency/Optimal Levels: 31-80 ng/mLToxicity: > 100 ng/mL.Test performed by chemiluminescent immunoassay.Performed By: #### 1989-3 ####[facility] LABCLIA [id number] [address] OF EJSWFAW50-umaagyrbyksmkh D3 [Mass/Vol]on 65-74-1026Oywjjkezfhmxuv and review of laboratory resultsNormalCTriHealth The reference range interval was based on an analysis of samples from healthy adults and may not pertain to children from 0-18 years old. [facility] CenterACTIVATED PARTIAL THROMBOPLASTIN TIMEon 89-60-8130hVDH Coag (PPP) [Time]29.5 sCleveland ClinicALK PHOS BONE SPECon 51-07-8201PCW PHOSPHATASE, BONE10.0 ug/LNormalMemorial Health System Marietta Memorial HospitalComment on above:Order Comment: Specimen Type: BLOOD SPECIMENOrdering Facility: [facility] Address:[address] [place], [place] [address]Result Comment: INTERPRETIVE INFORMATION: Bone Specific Alkaline Phosphatase Premenopausal Female: 4.5 - 16.9 ug/L Postmenopausal Female: 7.0 - 22.4 ug/LINTERPRETIVE INFORMATION: Bone Specific Alkaline PhosphataseLiver alkaline phosphatase can affect the measurement of bonespecific alkaline phosphatase in this assay. Each 100 U/L of liveralkaline phosphatase contributes an additional 2.5 to 5.8 ug/L tothe bone specific alkaline phosphatase result.Performed By: [employer] [place] [address]Woagmytnql Director: Vincenzo Hicks MD, PhDCLIA Number: [id number] By: #### APDOROTHY ####[facility]ITALIA [id number] [place], [place] [address]W- REACTIVE PROTEINon 96-51-2769TJH [Mass/Vol]15.7 mg/dLHighNINF - 0.9 mg/dL [facility] W Auto Differential panel (Bld)on 91-62-1385Ramfesvbp (Bld) [#/Vol]0.05 10*3/uLNINFPromedica Bay Park HospitalBasophils/100 WBC (Bld)0.5 %[facility] HospitalDifferential cell count method Nom (Bld)AutoCleveland ClinicEosinophils (Bld) [#/Vol]0.14 10*3/uLNINFPromedica Bay Park HospitalEosinophils/100 WBC (Bld)1.4 % [facility] HospitalErythrocyte distribution width (RBC) [Ratio]12.0 %11.5 - 15.0 % [facility] HospitalHematocrit (Bld) [Volume fraction]38.0 %36.0 - 46.0 %[facility] HospitalHemoglobin (Bld) [Mass/Vol]12.3 g/dL11.5 - 15.5 g/dLPromedica Bay Park Hospital Immature granulocytes (Bld) [#/Vol]0.03 10*3/uLNINFPromedica Bay Park HospitalImmature granulocytes/100 WBC (Bld)0.3 %[facility] HospitalInterpretation and review of laboratory resultsAbnormalCleveland ClinicLymphocytes (Bld) [#/Vol]1.65 10*3/uL [facility] HospitalLymphocytes/100 WBC (Bld)16.1 %[facility] HospitalH (RBC) [Entitic mass]30.3 pg26.0 - 34.0 pgCleveland Melrose Area HospitalHC (RBC) [Mass/Vol]32.4 g/dL30.5 - 36.0 g/dLPromedica Bay Park HospitalMCV (RBC) [Entitic vol]93.6 fL80.0 - 100.0 fLClevelatrium health university city ClinicMonocytes (Bld) [#/Vol]0.85 10*3/uLNINFPromedica Bay Park Hospital Monocytes/100 WBC (Bld)8.3 %[facility] HospitalNeutrophils (Bld) [#/Vol]7.50 10*3/uLPromedica Bay Park HospitalNeutrophils/100 WBC (Bld)73.4 %[facility] HospitalNucleated RBC (Bld) [#/Vol]NINFClevelKettering Health Main CampusNucleated RBC/100 WBC (Bld) [Ratio]0.0 % /100 WBCPromedica Bay Park HospitalPlatelet mean volume (Bld) [Entitic vol]9.4 fL9.0 - 12.7 fLCohiohealth grant medical center ClinicPlatelets (Bld) [#/Vol]433 10*3/uLHighPromedica Bay Park HospitalRBC (Bld) [#/Vol]4.06 10*6/uL3.90 - 5.20 m/uLPromedica Bay Park HospitalWBC (Bld) [#/Vol]10.22 10*3/uLChillicothe Hospital ClinicBasophils (Bld) [#/Vol]0.05 10*3/uLNormal <0.11CWayne HealthCare Main Campus on above:Order Comment: Specimen Type: BLOOD SPECIMENOrdering Facility: [facility] Address:[address] [place], [place] [address]Performed By: #### 76645-7, 7 ####[facility] LABCLIA [id number] [place] [address] [place] AMERICABasophils/100 WBC (Bld)0.5 %NormalSelect Medical Specialty Hospital - [facility] on above:Order Comment: Specimen Type: BLOOD SPECIMENOrdering Facility: [facility] Address:[address] [place], [place] [address]Performed By: #### 14939-7, 4537-7 ####[facility] LABCLIA [id number] [place] [address] [place] AMERICADifferential cell count method Nom (Bld)AutoNormalCWayne HealthCare Main Campus on above:Order Comment: Specimen Type: BLOOD SPECIMENOrdering Facility: [facility] Address:[address] [place], [place] [address]Performed By: #### 60295-2, 7 ####[facility] LABCLIA [id number] [place] [address] [place] AMERICAEosinophils (Bld) [#/Vol]0.14 10*3/uLNormal<0.46[facility] on above:Order Comment: Specimen Type: BLOOD SPECIMENOrdering Facility: [facility] Address:[address] [place], [place] [address]Performed By: #### 40610-1, 7 ####[facility] LABCLIA [id number] [place] [address] [place] AMERICAEosinophils/100 WBC (Bld)1.4 %NormalSelect Medical Specialty Hospital - [facility] on above:Order Comment: Specimen Type: BLOOD SPECIMENOrdering Facility: [facility] Address:[address] [place], [place] [address]Performed By: #### 71053-3, 7 ####[facility] LABCLIA [id number] [place] [address] [place] AMERICAErythrocyte distribution width (RBC) [Ratio]12.0 %Qpsaga39.5-15.0[facility] Comment on above:Order Comment: Specimen Type: BLOOD SPECIMENOrdering Facility: [facility] Address:[address] [place] [address] Performed By: #### 09168-9, 4537-01 ####[facility] LABCLIA [id number] [place] [address] [place] Hematocrit (Bld) [Volume fraction]38.0 %Gzuypa78.0-46.0[facility] on above:Order Comment: Specimen Type: BLOOD SPECIMENOrdering Facility: [facility] Address:[address] [place], [place] [address]Performed By: #### 09638-0, 4536-7 ####[facility] LABCLIA [id number] [place] [address] [place] Hemoglobin (Bld) [Mass/Vol]12.3 g/bHFzboaf53.5-15.5CMercy Health [facility] Comment on above:Order Comment: Specimen Type: BLOOD SPECIMENOrdering Facility: [facility] Address:[address] [place] [address] Performed By: #### 69689-5, 453-7 ####[facility] LABCLIA [id number] [place] [address] [place] Immature granulocytes (Bld) [#/Vol]0.03 10*3/uLNormal<0.10[facility] Memorial HospitalComment on above:Order Comment: Specimen Type: BLOOD SPECIMENOrdering Facility: [facility] Address:[address] [place], [place] [address]Performed By: #### 01490-0, 4536-7 ####[facility] LABCLIA [id number] [place] [address] [place] AMERICAImmature granulocytes/100 WBC (Bld)0.3 %NormalMemorial Health System Marietta Memorial Hospital Comment on above:Order Comment: Specimen Type: BLOOD SPECIMENOrdering Facility: [facility] Address:[address] [place] [address] Performed By: #### 24781-4, 4536-7 ####[facility] LABCLIA [id number] [place] [address] [place] Lymphocytes (Bld) [#/Vol]1.65 10*3/uLNormal1.00-4.00[facility] Comment on above:Order Comment: Specimen Type: BLOOD SPECIMENOrdering Facility: [facility] Address:[address] [place] [address] Performed By: #### 98752-2, 4536-7 ####[facility] LABCLIA [id number] [address] Lymphocytes/100 WBC (Bld)16.1 %NormalSelect Medical Specialty Hospital - [place] on above: Order Comment: Specimen Type: BLOOD SPECIMENOrdering Facility: [facility] Address:[address] [place], [place] [address]Performed By: #### 12800- 8, 7 ####[facility] LABCLIA [id number] [facility] [address] (RBC) [Entitic mass] 30.3 iaRftdpw30.0-34.0[facility] on above:Order Comment: Specimen Type: BLOOD SPECIMENOrdering Facility: [facility] Address:[address] [place], [place] [address]Performed By: #### 22503-4, 7 ####[facility] LABIA [id number] [address]HC (RBC) [Mass/Vol]32.4 g/dL Gdysre92.5-36.0[facility] on above:Order Comment: Specimen Type: BLOOD SPECIMENOrdering Facility: [facility] Address:[address] [place], [place] [address]Performed By: #### 68510-8, 7 ####[facility] LABIA [id number] [address] (RBC) [Entitic vol]93.6 fL Niwelh75.0-100.0[facility] on above:Order Comment: Specimen Type: BLOOD SPECIMENOrdering Facility: [facility] Address:[address] [place], [place] [address]Performed By: #### 35240-1, 7 ####[facility] LABCLIA [id number] [place] [address] [place] AMERICAMonocytes (Bld) [#/Vol]0.85 10*3/uLNormal<0.87[facility] on above:Order Comment: Specimen Type: BLOOD SPECIMENOrdering Facility: [facility] Address:[address] [place], [place] [address]Performed By: #### 42870-6, 4536-7 ####[facility] LABCLIA [id number] [place] [address] [place] AMERICAMonocytes/100 WBC (Bld)8.3 % NormalMemorial Health System Marietta Memorial HospitalComment on above:Order Comment: Specimen Type: BLOOD SPECIMENOrdering Facility: [facility] Address:[address] [place], [place] [address]Performed By: #### 72790-5, 4536-7 ####[facility] LABCLIA [id number] [place] [address] [place] AMERICANeutrophils (Bld) [#/Vol]7.50 10*3/uLNormal1.45-7.50 [facility] on above:Order Comment: Specimen Type: BLOOD SPECIMENOrdering Facility: [facility] Address:[address] [place], [place] [address]Performed By: #### 64334-9, 7 ####[facility] LABCLIA [id number] [place] [address] [place] AMERICANeutrophils/100 WBC (Bld)73.4 %NormalMemorial Health System Marietta Memorial Hospital Comment on above:Order Comment: Specimen Type: BLOOD SPECIMENOrdering Facility: [facility] Address:[address] [place] [address] Performed By: #### 81458-4, 4536-7 ####[facility] LABCLIA [id number] [place] [address] [place] Nucleated RBC (Bld) [#/Vol]10*3/uLNormal<0.01[facility] on above:Order Comment: Specimen Type: BLOOD SPECIMENOrdering Facility: [facility] Address:[address] [place] [address] Performed By: #### 07124-6, 4537-7 ####[facility] LABCLIA [id number] [place] [address] [place] Nucleated RBC/100 WBC (Bld) [Ratio]0.0 /100 WBCNormalCMercy Health [facility]sburg Hospital Comment on above:Order Comment: Specimen Type: BLOOD SPECIMENOrdering Facility: [facility] Address:[address] [place] [address] Performed By: #### 73325-9, 4537-7 ####[facility] LABCLIA [id number] [place] [address] [place] Platelet mean volume (Bld) [Entitic vol]9.4 fLNormal9.0-12.7CWayne HealthCare Main Campus on above:Order Comment: Specimen Type: BLOOD SPECIMENOrdering Facility: [facility] Address:[address] [place], [place] [address]Performed By: #### 77784-8, 4537-7 ####[facility] LABCLIA [id number] [place] [address] [place] Platelets (Bld) [#/Vol]433 10*3/kUUzcy551-894WyzjvsucqSelect Medical Specialty Hospital [facility] on above:Order Comment: Specimen Type: BLOOD SPECIMENOrdering Facility: [facility] Address:[address] [place] [address] Performed By: #### 41357-7, 7-7 ####[facility] LABCLIA [id number] [place] [address] [place] RBC (Bld) [#/Vol]4.06 10*6/uLNormal3.90-5.20[facility] ClevelandComment on above:Order Comment: Specimen Type: BLOOD SPECIMENOrdering Facility: [facility] Address:[address] [place], [place] [address]Performed By: #### 11243-0, 4537-7 ####[facility] LABCLIA [id number] [place] [address] [place] AMERICAWBC (Bld) [#/Vol]10.22 10*3/uLNormal3.70-11.00[facility] Memorial HospitalComment on above:Order Comment: Specimen Type: BLOOD SPECIMENOrdering Facility: [facility] Address:[address] [place], [place] [address]Performed By: #### 04736- 8, 4537-7 ####[facility] LABCLIA [id number] [address] STATES OF AMERICACNOVon 31-89-8542KOAK NormalMemorial Health System Marietta Memorial HospitalCNPNon 40-16-2266EHKMYuwyakEzqzartxi Clinic ClevelandCRP SerPl-mCncon 13-90-6640KDB [Mass/Vol]15.7 mg/dLHigh<0.9ClevelPsychiatric hospitalComment on above:Order Comment: Specimen Type: BLOOD SPECIMENOrdering Facility: [facility] Address:[address] [place], [place] [address]Performed By: #### 1988-5, 3024-7, 3016-3, 89463-7 ####[facility] LABCLIA [id number] [place] [address] [place] AMERICAComprehensive metabolic 2000 panelon 77-16-5965Dgujrqy [Mass/Vol]4.0 g/dL3.9 - 4.9 g/dLAlbuquerque ClinicALP [Catalytic activity/Vol]96 U/L34 - 123 U/LCleveland ClinicALT [Catalytic activity/Vol]17 U/L7 - 38 U/LCleveland ClinicAnion gap [Moles/Vol]14 mmol/L8 - 15 mmol/LCleveland ClinicAST [Catalytic activity/Vol]16 U/L13 - 35 U/LCleveland ClinicBilirubin [Mass/Vol]0.3 mg/dL0.2 - 1.3 mg/dLAlbuquerque ClinicCalcium [Mass/Vol]9.8 mg/dL8.5 - 10.2 mg/dLAlbuquerque ClinicChloride [Moles/Vol]100 mmol/L98 - 107 mmol/LCleveland ClinicCO2 [Moles/Vol]27 mmol/L22 - 30 mmol/L [facility] HospitalCreatinine [Mass/Vol]0.68 mg/dL0.58 - 0.96 mg/dLPromedica Bay Park Hospital GFR/1.73 sq M.predicted among non-blacks MDRD (S/P/Bld) [Vol rate/Area]96 mL/min/{1.73_m2}- PINFCleveland Gillette Children'S Specialty HealthcareComment on above:Estimated Glomerular Filtration Rate (eGFR) is calculated using the 2020 CKD-EPI creatinine equation. This equation utilizes serum creatinine, sex, and age as parameters. The creatinine assay has traceable calibration to isotope dilution-mass spectrometry. Refer to KDIGO guidelines for clinical interpretation. In patients with unstable renal function, e.g. those with acute kidney injury, the eGFRmay not accurately reflect actual GFR.Glucose [Mass/Vol]120 mg/sHGmzi69 - 99 mg/dL [facility] HospitalComment on above:The [place] Diabetes Association (ADA) provides guidance for cutoff values for fasting glucose andrandom glucose. The ADA defines fasting as no caloric intake for at least 8 hours. Fasting plasma gl ucose results between 100 to 125 mg/dL indicate [...] Standards of Medical Care in Diabetes 2016, [place] [employer]. Diabetes Care. 2016.39(Suppl 1). Potassium [Moles/Vol]4.0 mmol/L3.7 - 5.1 mmol/LCleveland ClinicProtein [Mass/Vol]7.9 g/dL6.3 - 8.0 g/dLAlbuquerque ClinicSodium [Moles/Vol]141 mmol/L136 - 144 mmol/LCleveland ClinicUrea nitrogen [Mass/Vol]19 mg/dL7 - 21 mg/dL [place] ClinicAlbumin [Mass/Vol]4.0 g/dLNormal3.9-4.9CWayne HealthCare [facility] on above:Order Comment: Specimen Type: BLOOD SPECIMENOrdering Facility: [facility] Address:[address] [place], [place] [address]Performed By: #### 1987-11, 3024-01, 3015-09, 64763-6 ####[facility] LABCLIA [id number] [place] [address] [place] AMERICAALP [Catalytic activity/Vol]96 U/VAtgzdh41-944WtjolcgcwSelect Medical Specialty Hospital [facility] [place] on above:Order Comment: Specimen Type: BLOOD SPECIMENOrdering Facility: [facility] Address:[address] [place], [place] [address]Performed By: #### 1987-11, 3024-01, 3015-09, ####[facility] LABCLIA [id number] [place] [address] [place] AMERICAALT [Catalytic activity/Vol]17 U/LNormal7-38[facility] on above:Order Comment: Specimen Type: BLOOD SPECIMENOrdering Facility: [facility] Address:[address] [place], [place] [address]Performed By: #### 1987-11, 3024-01, 3015-09, ####[facility] LABCLIA [id number] [place] [id number] [place] AMERICAAnion gap [Moles/Vol]14 mmol/L Normal8-15[facility] on above:Order Comment: Specimen Type: BLOOD SPECIMENOrdering Facility: [facility] Address:[address] [place], [place] [address]Performed By: #### 1987-11, 3024-01, 3015-09, ####[facility] LABCLIA [id number] [place] [address] [place] AMERICAAST [Catalytic activity/Vol]16 U/ZYpwimr00-74PmtyvjhqwSelect Medical Specialty Hospital [facility] [place] on above:Order Comment: Specimen Type: BLOOD SPECIMENOrdering Facility: [facility] Address:[address] [place], [place] [address]Performed By: #### 1987-11, 3024-01, 3, 09642- 8 ####[facility] LABIA [id number] [place] [address] [place] AMERICABilirubin [Mass/Vol]0.3 mg/dL Normal0.2-1.3CWayne HealthCare Main Campus on above:Order Comment: Specimen Type: BLOOD SPECIMENOrdering Facility: [facility] Address:[address] [place], [place] [address]Performed By: #### 1987-11, 3024-01, 3015-09, ####[facility] LABIA [id number] [address] STATES OF AMERICACalcium [Mass/Vol]9.8 mg/dLNormal 8.5-10.2CWayne HealthCare Main Campus on above:Order Comment: Specimen Type: BLOOD SPECIMENOrdering Facility: [facility] Address:[address] [place], [place] [address]Performed By: #### 1987-11, 3024-01, 3015-09, ####[facility] LABIA [id number] [place] [address] [place] STATES OF AMERICAChloride [Moles/Vol]100 mmol/L Nirfif74-190KzzxmkfoaSelect Medical Specialty Hospital [facility] on above:Order Comment: Specimen Type: BLOOD SPECIMENOrdering Facility: [facility] Address:[address] [place], [place] [address]Performed By: #### 1987-11, 3024-01, 3015-09, ####[facility] LABIA [id number] [place] [address] [place] AMERICACO2 [Moles/Vol]27 mmol/LNormal 22-30[facility] on above:Order Comment: Specimen Type: BLOOD SPECIMENOrdering Facility: [facility] Address:[address] [place], [place] [address]Performed By: #### 1987-11, 3024-01, 3015-09, ####[facility] LABCLIA [id number] [place] [address] [place] AMERICACreatinine [Mass/Vol]0.68 mg/dL Normal0.58-0.96[facility] on above:Order Comment: Specimen Type: BLOOD SPECIMENOrdering Facility: [facility] Address:[address] [place], [place] [address]Performed By: #### 1987-11, 3024-01, 3015-09, ####[facility] LABIA [id number] [address] STATES OF [facility] HOSPITALCreatinine and Glomerular filtration rate.predicted panel (S/P/Bld)96 mL/min/1.73m???Normal>=60 [facility] on above:Order Comment: Specimen Type: BLOOD SPECIMENOrdering Facility: [facility] Address:[address] [place], [place] [address]Result Comment: Estimated Glomerular Filtration Rate (eGFR) is calculated using the 2020 CKD-EPI creatinine equation. This equation utilizes serum creatinine, sex, and age as parameters. The creatinine assay has traceable calibration to isotope dilution-mass spectrometry. Refer to KDIGO guidelines for clinical interpretation. In patients with unstable renal function, e.g. those with acute kidney injury, the eGFR may not accurately reflect actual GFR.Performed By: #### 1987-11, 3024-01, 3015-09, ####[facility] LABCLIA [id number] [place] [id number] [place] OF AMERICAGlucose [Mass/Vol]120 mg/dLHigh 74-99[facility] on above:Order Comment: Specimen Type: BLOOD SPECIMENOrdering Facility: [facility] Address:[address] [place], [place] [address]Result Comment: The [place] Diabetes Association (ADA) provides guidance for cutoff values for fasting glucose and random glucose. The ADA defines fasting as no caloric intake for at least 8 hours. Fasting plasma glucose results between 100 to 125 mg/dL indicate increased risk for diabetes (prediabetes).Fasting plasma glucose results greater than or equal to 126 mg/dL meet the criteria for diagnosis of diabetes. In the absence of unequivocal hyperglycemia, results should be confirmed by repeattesting. In a patient with classic symptoms of hyperglycemia or hyperglycemic crisis, random plasmaglucose results greater than or equal to 200 mg/dL meet the criteria for diagnosis of diabetes.Reference: Standards of Medical Care in Diabetes 2016, [place] [employer]. Diabetes Care. 2016.39(Suppl 1).Performed By: #### 1987-11, 3024-01, 3015-09, ####[facility] LABCLIA [id number] [place] [address] [place] AMERICAPotassium [Moles/Vol]4.0 mmol/LNormal3.7-5.1CWay[facility] on above: Order Comment: Specimen Type: BLOOD SPECIMENOrdering Facility: [facility] Address:[address] [place], [place] [address]Performed By: #### , 3024-01, 3015-09, ####[facility] LABCLIA [id number] [place] [id number] [place] OF AMERICAProtein [Mass/Vol]7.9 g/dLNormal6.3-8.0[facility] on above:Order Comment: Specimen Type: BLOOD SPECIMENOrdering Facility: [facility] Address:[address] [place], [place] [address]Performed By: #### , 3024-01, 3015-09, 78110-6 ####[facility] LABCLIA [id number] [place] [id number] [place] OF AMERICASodium [Moles/Vol]141 mmol/DKwdnsr816-862GbuniokdzSelect Medical Specialty Hospital [facility] [place] on above: Order Comment: Specimen Type: BLOOD SPECIMENOrdering Facility: [facility] Address:[address] [place], [place] [address]Performed By: #### 1987- 5, 3024-01, 3016-3, 73256-2 ####[facility] LABCLIA [id number] [place] [id number] [place] OF AMERICAUrea nitrogen [Mass/Vol]19 mg/dLNormal7-21[facility] on above: Order Comment: Specimen Type: BLOOD SPECIMENOrdering Facility: [facility] Address:[address] [place], [place] [address]Performed By: #### , 3024-01, 3015-09, 43417-4 ####[facility] LABCLIA [id number] [place], [place] [address] [place] OF AMERICAESR Westergren method (Bld) [Velocity]on 99-15-8714QNB (Bld) [Velocity]91 mm/hHigh [facility] HospitalInterpretation and review of laboratory resultsAbnormalCshelby memorial hospitaland Fostoria City HospitalR (Bld) [Velocity]91 mm/hHigh0-20[facility] on above:Order Comment: Specimen Type: BLOOD SPECIMENOrdering Facility: [facility] Address:[address] [place], [place] [address]Performed By: #### 02870-5, 4537-7 ####[facility] LABCLIA [id number] [place] [id number] [place] OF AMERICANo Panel Informationon 99-67-9023Chrmystkpylhyd and review of laboratory resultsNormalCleveland OhioHealth Grant Medical CenterInterpretation and review of laboratory resultsAbnormalCleveland OhioHealth Grant Medical CenterInterpretation and review of laboratory resultsNormalCleveland [facility]Health Grant Medical CenterPROTEIN ELECTROPHORESIS SERUM (P)on 28-32-4064Mxiukei [Mass/Vol]3.48 g/dLNormal3.43-5.41 [facility] Memorial HospitalComment on above:Order Comment: Specimen Type: BLOOD SPECIMENOrdering Facility: [facility] Address:[address] [place], [place] [address]Performed By: #### [id number] ####[facility] LABCLIA [id number] [place] [address] [place] OF AMERICAAlpha 1 globulin Elph [Mass/Vol]0.53 g/dLHigh0.18-0.43[facility] Memorial HospitalComment on above:Order Comment: Specimen Type: BLOOD SPECIMENOrdering Facility: [facility] Address:[address] [place], [place] [address]Performed By: #### [id number] ####[facility] LABCLIA [id number] [place] [address] [place] Alpha 2 globulin Elph [Mass/Vol]1.38 g/dLHigh0.42-0.98[facility] Comment on above:Order Comment: Specimen Type: BLOOD SPECIMENOrdering Facility: [facility] Address:[address] [place] [address] Performed By: #### [id number] ####[facility] LABIA [id number] [place] [address] [place] Beta globulin Elph [Mass/Vol]1.01 g/dLNormal0.61-1.17[facility] Comment on above:Order Comment: Specimen Type: BLOOD SPECIMENOrdering Facility: [facility] Address:[address] [place] [address] Performed By: #### [id number] ####[facility] LABCLIA [id number] [place] [address] [place] Gamma globulin Elph [Mass/Vol]0.80 g/dLNormal0.53-1.51[facility] Comment on above:Order Comment: Specimen Type: BLOOD SPECIMENOrdering Facility: [facility] Address:[address] [place] [address] Performed By: #### [id number] ####[facility] LABIA [id number] [place] [address] [place] M-PROTEIN LOCATIONNoCleveland Clinic [facility] on above:Order Comment: Specimen Type: BLOOD SPECIMENOrdering Facility: [facility] Address:[address] [place], [place] [address]Result Comment: Not Applicable.Performed By: #### [id number] ####[facility] LABIA [id number] [place] [address] [place] Protein Fractions [Interp]No definitive M protein is identified on protein electrophoresis.NormalNo definitive M protein is identified on protein electrophoresis.[facility] on above:Order Comment: Specimen Type: BLOOD SPECIMENOrdering Facility: [facility] Address:[address] [place], [place] [address]Performed By: #### [id number] ####[facility] LABIA [id number] [place] [address] [place] AMERICAProtein.monoclonal Elph [Mass/Vol]0.00 g/dLNormal<=0.00[facility] on above:Order Comment: Specimen Type: BLOOD SPECIMENOrdering Facility: [facility] Address:[address] [place], [place] [address]Performed By: #### [id number] ####[facility] LABIA [id number] [place] [address] [place] [facility] H[facility]PITALSSPE STAFF REVIEW Reviewed by Dr. Cam Navas [facility] on above:Order Comment: Specimen Type: BLOOD SPECIMENOrdering Facility: [facility] Address:[address] [place], [place] [address]Performed By: #### [id number] ####[facility] LABIA [id number] [place] [address] [place] AMERICAPT panel Coag (PPP)on 54-98-0020ACD Coag (PPP) [Relative time]1.1 {INR}0.9 - 1.3CTriHealth Comment on above:Vitamin K Antagonist (VKA) Therapeutic Range: INR 2 to 3 (Target INR of 2.5) Note: For patients treated with VKA drugs, such as warfarin, the [place] [employer] 2012 Guideline recommends a therapeutic INR range of 2 to 3 (target INR of 2.5). This recommendation includes high-risk patients with antiphospholipid syndrome with previous arterial or venous thromboembolism, current-generation mechanical or bioprosthetic aortic heart valve replacement. Note: Patients with mechanical aortic valve replacement and additional risk factors for thromboembolic events (atrial fibrillation, previous thromboembolism, LV dysfunction, hypercoagulable conditions) or an older generation mechanical AVR (i.e., ball in-Cage) or any mechanical MVR should have a INR therapeutic range of 2.5 to 3.5 (target INR of 3). Carla GH, et al. Chest 2012, 141:7S-47S Dain RA, et al. [facility] 2017, 70: 252-289 PT Coag (PPP) [Time]12.1 [facility] HospitalINR Coag (PPP) [Relative time]1.1 {INR}Normal0.9-1.3CMercy Health Perrysburg HospitalComment on above:Order Comment: Specimen Type: BLOOD SPECIMENOrdering Facility: [facility] Address:[address] [place] [address]Esxhcd Comment: Vitamin K Antagonist (VKA) Therapeutic Range: INR 2 to 3 (Target INR of 2.5)Note: For patients treated with VKA drugs, such as warfarin, the [place] [employer] 2012 Guideline recommends a therapeutic INR range of 2 to 3 (target INR of 2.5). This recommendation includes high-risk patients with antiphospholipid syndrome with previous arterial or venous thromboembolism, current-generation mechanical or bioprosthetic aortic heart valve replacement.Note: Patients with mechanical aortic valve replacement and additional risk factors for thromboembolic events (atrialfibrillation, previous thromboembolism, LV dysfunction, hypercoagulable conditions) or an older gene ration mechanical AVR (i.e., ball in-Cage) or any mechanical MVR should have a INR therapeutic range of 2.5 to 3.5 (target INR of 3).Carla GH, et al. Chest 2012, 141:7S-47SNishimura RA, et al. [facility] 2017, 70: 252-289Performed By: #### 39096-8, 04105-8 ####[facility] LABCLIA [id number] [place] [address] [place] AMERICAPT Coag (PPP) [Time] 12.1 sNormal9.7-13.0[facility] on above:Order Comment: Specimen Type: BLOOD SPECIMENOrdering Facility: [facility] Address:[address] [place], [place] [address]Performed By: #### 30123-0, 37808-1 ####[facility] LABIA [id number] [address] STATES OF AMERICAPTH INTACTon 07-29-2024 Parathyrin.intact [Mass/Vol]30 pg/mL15 - 65 pg/mLCleveland Gillette Children'S Specialty HealthcarePT-Intact SerPl-mCncon 02-11-1530Guttqgcckd.intact [Mass/Vol]30 pg/uIBueeoj53-12VanxhhfrkSelect Medical [facility] on above:Order Comment: Specimen Type: BLOOD SPECIMENOrdering Facility: [facility] Address:[address] [place], [place] [address]Performed By: #### 2731-8, 2885-2 ####[facility] LABIA [id number] [place] [address] [place] AMERICAParathyrin.intact [Mass/Vol]on 80-71-6001Ereotexryrmuip and review of laboratory resultsNormalCleveland [facility] Grant Medical CenterProt SerPl-mCncon 42-32-7028Qgmqqsl [Mass/Vol]7.2 g/dLNormal6.3-8.0[facility] on above:Order Comment: Specimen Type: BLOOD SPECIMENOrdering Facility: [facility] Address:[address] [place], [place] [address]Performed By: #### 2731-8, 2885-2 ####[facility] LABCLIA [id number] [place] [address] [place] Prot Ur-mCncon 64-55-9334Vsysciv (U) [Mass/Vol]64 mg/dLHigh0-20[facility] on above:Order Comment: Specimen Type: URINE SPECIMENOrdering Facility: [facility] Address:[address] [place], [place] [address]Performed By: #### 2888-6 ####[facility] LABCLIA [id number] [place] [address] [place] T4 FREE/FREE THYROXINEon 83-69-7221Zizy T4 [Mass/Vol]1.1 ng/dL0.9 - 1.7 ng/dL [place] [address] Free SerPl-ncon 67-08-1744Dvzq T4 [Mass/Vol]1.1 ng/dLNormal 0.9-1.7CWay[facility]Care [facility] on above:Order Comment: Specimen Type: BLOOD SPECIMENOrdering Facility: [facility] Address:[address] [place], [place] [address]Performed By: #### 1987-11, 3024-01, 3015-09, 46627-8 ####[facility] LABCLIA [id number] [place] [address] [place] AMERICATHYROID STIMULATING HORMONEon 36-70-7780FKF Qn2.050 m[IU]/LCTogus VA Medical Center SerPl-aCncon 57-64-5008FXQ Qn 2.050 m[IU]/LNormal0.270-4.200[facility] on above:Order Comment: Specimen Type: BLOOD SPECIMENOrdering Facility: [facility] Address:[address] [place], [place] [address]Performed By: #### 1986- , 3024-01, 3015-09, 02072-9 ####[facility] LABCLIA [id number] [place] [address] [place] [facility] TIFFIN HOSPITALURINE PROTEIN ELECTROPHORESIS RANDOM (P)on 51-69-9919Shurceu Elph (U) [Mass fraction] 30.70 %NormalSelect Medical Specialty Hospital [facility] on above:Order Comment: Specimen Type: URINE SPECIMENOrdering Facility: [facility] Address:[address] [place], [place] [address]Performed By: #### [id number] ####[facility] LABIA [id number] [place] [address] [place] AMERICAAlpha 1 globulin Elph (U) [Mass fraction]2.31 %Normal [facility] on above:Order Comment: Specimen Type: URINE SPECIMENOrdering Facility: [facility] Address:[address] [place], [place] [address]Performed By: #### [id number] ####[facility] LABIA [id number] [place] [address] [place] AMERICAAlpha 2 globulin Elph (U) [Mass fraction]20.02 %NormalSelect Medical Specialty [facility] on above:Order Comment: Specimen Type: URINE SPECIMENOrdering Facility: [facility] Address:[address] [place], [place] [address]Performed By: #### [id number] ####[facility] LABIA [id number] [place] [address] [place] Beta globulin Elph (U) [Mass fraction]30.04 %NormalMemorial Health System [facility] Comment on above:Order Comment: Specimen Type: URINE SPECIMENOrdering Facility: [facility] Address:[address] [place] [address] Performed By: #### [id number] ####[facility] LABIA [id number] [place] [address] [place] Gamma globulin Elph (U) [Mass fraction]16.93 %NormalMemorial Health System Marietta Memorial Hospital Comment on above:Order Comment: Specimen Type: URINE SPECIMENOrdering Facility: [facility] Address:[address] [place] [address] Performed By: #### [id number] ####[facility] LABCLIA [id number] [place] [address] [place] INTERPRETATION COMMENT FOR PROTEIN ELECTROPHORESISNoC[facility] Clinic [facility] on above:Order Comment: Specimen Type: URINE SPECIMENOrdering Facility: [facility] Address:[address] [place], [place] [address]Performed By: #### [id number] ####[facility] LABIA [id number] [place] [address] [place] Protein Fractions Elph Jonathan (U) [Interp]An atypical region of restricted mobility is identified on protein electrophoresis.AbnormalNo definitive M protein is identified on protein electrophoresis.[facility] on above:Order Comment: Specimen Type: URINE SPECIMENOrdering Facility: [facility] Address:[address] [place], [place] [address]Performed By: #### [id number] ####[facility] LABIA [id number] [place] [address] [place] AMERICASTAFF REVIEW (URINE ELECTRO)Reviewed by Dr. Cam Navas MDNormRiverview Health Institute on above:Order Comment: Specimen Type: URINE SPECIMENOrdering Facility: [facility] Address:[address] [place] [address] Performed By: #### [id number] ####[facility] LABIA [id number] [place] [address] [place] VITAMIN D 25 HYDROXYon 232788-iagvuxfxsvijxf D3 [Mass/Vol]67.6 ng/mL31.0 - 80.0 ng/mLCGrant Hospital on above:Classification of 25 [place] Vitamin D status: Deficiency/Insufficiency: < or = 30 ng/ml. Sufficiency/Optimal Levels: 31-80 ng/mL Toxicity: > 100 ng/mL. Test performed by chemiluminescent immunoassay. XR HIP 3V PELV+ AP/LAT RTon 55-62-2130OP HIP 3V PELV+ AP/LAT RTNormalCMercy Health Perrysburg HospitalXR Pelvis and Hip - right AP and Lateral frogon 07-29-2024 Radiology Study observation (narrative)[facility] HospitalIMPRESSION: Mild osteoarthritis right hip Centrifugal Extractor Operator: JEANETTE Transcribe Date/Time: Jul 29 2024 1:04P Dictated by : ALEXANDRIA GRIDER MD This examination was interpreted and the report reviewed and electronically signed by: ALEXANDRIA GRIDER MD on Jul 29 2024 1:04PM [facility] DIVISION OF RADIOLOGY* * *Final Report* * * DATE OF EXAM: Jul 29 2024 11:57AM AOX 5352 - XR HIP 3V PELV+ AP/LAT RT / PROCEDURE REASON: multiple diagnoses * * * * Physician Interpretation * * * * PELVIS AND RIGHT HIP X-RAYS HISTORY: pain. Pain in right hip TECHNIQUE: AP pelvis and 2 view right hip (3 total films) COMPARISON: None RESULT: Mild osteoarthritis right hip. Left hip is unremarkable. Sacroiliac joints and pubic symphysis are maintained. Degenerative changes lower lumbar spine. DIVISION OF RADIOLOGYProvider, [facility] [place] - 07/29/2024 * * *Final Report* * * DATE OF EXAM: Jul 29 2024 11:57AM AOX 5352 - XR HIP 3V PELV+ AP/LAT RT / PROCEDURE REASON: multiple diagnoses * * * * Physician Interpretation * * * * PELVIS AND RIGHT HIP X-RAYS HISTORY: pain. Pain in right hip TECHNIQUE: AP pelvis and 2 view right hip (3 total films) COMPARISON: None RESULT: Mild osteoarthritis right hip. Left hip is unremarkable. Sacroiliac joints and pubic symphysis are maintained. Degenerative changes lower lumbar spine. IMPRESSION IMPRESSION: Mild osteoarthritis right hip Centrifugal Extractor Operator: JEANETTE Transcribe Date/Time: Jul 29 2024 1:04P Dictated by : ALEXANDRIA GRIDER MD This examination was interpreted and the report reviewed and electronically signed by: ALEXANDRIA GRIDER MD on Jul 29 2024 1:04PM EST [facility] HospitalXR Pelvis and Hip - right AP and Lateral frogOrdered By: [facility] Provider on 51-56-2893Wwfbmnwxs ClinicaPTT Coag (PPP) [Time]on 07-29-2024 Unfractionated Heparin Therapeutic Ranges: Standard Heparin Nomogram: 53 to 78 seconds (anti-Xa level of 0.3 to 0.7 U/ml) Low Dose/ACS Nomogram: 49 to 67 seconds (anti-Xa level of 0.2 to 0.5 U/ml) Stroke Treatment Nomogram: 49 to 67 seconds (anti-Xa level of 0.2 to 0.5 U/ml) Note: The APTT therapeutic range has been determined for the current lot of laboratory APTT reagentin use throughout the [facility]. [facility] HospitalaPTT PPPon 92-78-0829jMQG Coag (PPP) [Time]29.5 pDqkvkp95.0-32.4 [facility] Memorial HospitalCommclaren bay special care hospital on above:Order Comment: Specimen Type: BLOOD SPECIMENOrdering Facility: [facility] Address:[address] [place], [place] [address]Performed By: #### 97143-3, 70214-9 ####[facility] LABCLIA [id number] [place] [address] [place] AMERICACNOVon 03-42-4621PJRSQdnucrQueibufjz Clinic ClevelandXR SHLDR 4V AP/LESTER/LAT/OUTLET RTon 34-00-3015GU SHLDR 4V AP/LESTER/LAT/OUTLET RTNormal [facility] Memorial HospitalAmbulatory Visit Summaryon 61-55-0484Tmaxxblzoo Visit SummaryAmbulatory Visit Summary OFE SARAVIA :1955 Visit Date:06/23/2024 Ambulatory Visit Instructions Your Diagnosis Foreign body in bladder Ureteral stone with hydronephrosis Kidney stones Hypercalciuria Tests Performed US Renal -- Results Pending -- Please visit your patient portal for your results or contact your primary care physician. Your Care Team Attending Physician - Cedric FLOYD, Kera Regalado Primary Care Physician - ASYA CLEMENTS JR, DO This Is Your Medications List hydrochlorothiazide (hydrochlorothiazide 25 mg Tab) tamsulosin (tamsulosin 0.4 mg Cap) Contact prescribing physician if questions or concerns ezetimibe fluoxetine (Prozac 20 mg Cap) levothyroxine (levothyroxine 25 mcg (0.025 mg) Tab) propranolol (propranolol 20 mg Tab) Procedures Performed Cystoscopic removal of ureteric stent (06/23/2024), Procedure on brain (10/2003), Ankle, Procedure on eye. Discharge Vitals Heart Rate (Peripheral) 68 Respiratory Rate 16 Blood Pressure 141/71 Height 175 cm Height 69 in Weight 97.5 kg Weight 214.95 lb BMI 31.84 What to do next Scheduled Follow-Up Appointments Thursday 8:45 AM EDT With: Kera Reid MD Where: [facility] [address] [place] [address]- You Need to Schedule the Following Appointments Follow Up with Cedric FLOYD, Kera Regalado, URL, [facility] When: Where: Medications What How Much When Instructions New hydrochlorothiazide (hydrochlorothiazide 25 mg Tab) 1 Tablets By Mouth Every day Duration: 30 Days Refills: 11 Pickup at [facility]/pharmacy #[id number] Unchanged tamsulosin (tamsulosin 0.4 mg Cap) 1 Capsules By Mouth Every day Unchanged ezetimibe By Mouth Every day Contact [...] Contact prescribing physician if questions or concerns Pharmacy Information [facility]/pharmacy #[id number]: [address], [place] [id number] [phone] Medications and Immunizations Administered Given lidocaine Top 2% Gel w/Appl 6 mL, 6 mL, Topical. For: Foreign body in bladder, Ureteral stone with hydronephrosis, Kidney stones Allergies No Known Allergies Problems Ongoing - Any problem that you are currently receiving treatment for. Arthritis BMI 31.0-31.9,adult Flank pain Headache Hearing loss Hypercalciuria Hyperlipidemia Hypothyroid Kidney stone Nerve pain Nystagmus Panic disorder Simple renal cyst Stress incontinence Visual impairment Historical - Any problem that you are no longer receiving treatment for. Kidney stones Ureteral stone with hydronephrosis Patient Survey You may receive a survey via text or e-mail asking about your office visit. Please share your experience with us by completing your survey. We appreciate your feedback and thank you for choosing us for your care. Education Materials Dietary Guidelines to Help Prevent Kidney Stones [...] for following this plan? Reading food labels ??? Choose foods with no salt added or low-salt labels. Limit your salt (sodium) intake to less than 1,500 mg a day. ??? Choose foods with calcium for each meal and snack. Try to eat about 300 mg of calcium at each meal.Foods that contain 200???500 mg of calcium a serving include: ? 8 oz (237 mL) of milk, mqitced-obsqdbgtneui-lvvrt milk, and calcium- fortifiedfruit juice. Calcium-fortified means that calcium has been [...] of sardines or mackerel. Most people need 1,000???1,500 mg of calcium a day. Talk to your dietitian about how much calcium is recommended for you. Shopping ??? Buy plenty of fresh fruits and vegetables. Most people do not need to avoid fruits and vegetables, even if these foods contain nutrients that may contribute to kidney stones. ??? When shopping for convenience foods, choose: ? Whole pieces of fruit. ? Pre-made salad (more content not included)...[facility] Urology Office/Clinic Noteon [id number] Office/Clinic NoteUrology Office/Clinic Note Chief Complaint Cysto with rt stent removal HPI Staff Pt here for cysto, R stent removal. CT AP wo con 05/20/24 [facility] - Marked R hydroureteronephrosis secondary to obstructing 8 x 6 x 5 mm R distal ureteral stone, 8 cm from UVJ. No progression since 03/17/24. A few small nonobstructing stoneR kidney. No L renal stones. S/p cysto, R RPG, R URS, laser litho, stone extractions, renoscop with removal of kidney stones 06/07/24. History of Present Illness Tests reviewed: CT, op note, stone analysis I have reviewed the previous health record [...] & Measurements HR: 68(Peripheral) RR: 16 BP: 141/71 HT: 69 in HT: 175 cm WT: 97.5 kg WT: 214.95 lb BMI: 31.84 General Appearance: alert , no acute distress, well nourished, well developed female. Genitourinary: bladder nonpalpable, no flank pain. Procedure Operative Information Anesthesia Type: Local Procedure: Local Cystoscopy with Stent Removal Complications: None Surgical risks, benefits, details of the procedure have been explained to the patient. Full informed consent has been obtained. Intraoperative Information Prepped: Patient is placed in supine/frog leg position. The patient was prepped with the Betadine solution. Anesthesia: 2% Xylocaine Jelly per urethra. Procedure: Cystoscopy and right stent removal. The flexible Cystoscope was passed in retrograde fashion into the bladder without difficulty. The bladder was viewed in entirety and found to be withouttumors or stones. Mild inflammation with blood clot was seen surrounding the orifice with the stentseen protruding from it. The stent was then grasped and removed in its entirety. Specimens Removed: None Postoperative Information The patient tolerated the procedure well and was subsequently discharged home. Assessment/Plan 68-year-old female history of recurrent stones here for stent removal after recent URS 1. Foreign body in bladder (T19.1XXA: Foreign body in bladder, initial encounter) S/p cysto, R RPG, R URS, laser litho, stone extractions, renoscopy with removal of kidney stones 06/07/24. Pt had IO cysto, R stent removal today wo complications. - Renal US in 6 wks 2. Ureteral stone with hydronephrosis (N13.2: Hydronephrosis with renal and ureteral calculous obstruction) CT AP 07/31/21 - Mild right hydroureter with periureteral stranding near the distal ureter without evidence of obstructing stone. 3 mm LUP stone KUB 07/08/22 - LUP stone US kidneys 07/08/22 - Nonobstructing LUP stone. CT AP wo con 11/12/22 [facility] - BL punctate stones (3 on right, 1 on left all < 1mm) . No hydro. KUB 06/08/23 [facility] - neg, limited by bowels. CEASAR 06/08/23 [facility] - nonobstructing BL renal stones, measuring up to 0.7cm in LLP. No hydro. Personalreview: R measuring up to 7mm, L measuring 3-4mm. KUB 03/15/24 [facility] - No visible stones. CEASAR 03/15/24 [facility] - 7mm R nonobstructing nephrolith. Moderate R hydro. 6mm L nonobstructing nephrolith. No L hydro. CT AP wo contrast [facility] 03/17/24- 3 mm RMP stone KUB 04/07/24 [facility] - No visible stones. CEASAR 04/07/24 [facility] - moderate hydro with [address] AP wo contrast [facility] 03/17/24 - Two right distal ureteral stones 7 x 8 mm and 6 x 4 mm, mod hydro. KUB 04/07/24 [facility] - No visible stones. CEASAR 04/07/24 [facility] - Moderate hydro with [address] AP wo con 05/20/24 [facility] - Marked R hydroureteronephrosis secondary to obstructing 8 x 6 x 5 mm R distal ureteral stone, 8 cm from UVJ. No progression since 03/17/24. A few small nonobstructing stoneR kidney. No L renal stones. S/p cysto, R RPG, R URS, laser litho, stone extractions, renoscop with removal of kidney stones 06/07/24. Stone analysis - 60% CaOx mono, 40% CaOx di. Resolved. -CEASAR in 6-8 wks to ensure no silent obstruction (will be w/OV below). 3. Kidney stones (N20.0: Calculus of kidney) KUB 04/07/24 [facility] - No visible stones. CEASAR 04/07/24 [facility] - Moderate hydro with [address] AP wo con 05/20/24 [facility] - A few small nonobstructing stone R kidney (no measurements). No L renalstones. S/p cysto, R RPG, R URS, laser litho, stone extractions, renoscopy with removal of kidney stones 06/07/24. Resolved. -Patient agrees to proceed medical management to preven (more content not included)...[facility] HospitalComment on above:Result Comment: Electronically Signed By: Kera Reid MD\.br\Date and Time Signed: 06/23/24 13:22EST\.br\Electronically Co-Signed By: Miora Vasquez\.br\Date and Time Co-Signed: 06/23/24 13:17 ESTAmmonium urate crystals detection in stone by infrared spectroscopyOrdered By: Kera Reid on 44-72-4046Brzxxstf urate crystals Infrared spectroscopy Ql (Stone)Ammonium urate crystals detection in stone by infrared spectroscopyFisher-Titus Medical CenterCalcium bilirubinate measurementOrdered By: Kera Reid on 80-29-5183Zpuleqj bilirubinate (Stone) [Mass fraction]Calcium bilirubinate measurementFisher-Titus Medical Center Calcium carbonate/Total in StoneOrdered By: Kera Reid on 73-56-2943Kwdtqkv carbonate (Stone) [Mass fraction]Calcium carbonate measurementFisher-Titus Medical CenterCalcium hydrogen phosphate dihydrate/Total in StoneOrdered By: Kera Reid on 44-04-9062Zdkhies hydrogen phosphate dihydrate (Stone) [Mass fraction]Calcium hydrogen phosphate dihydrate/Total in StoneFisher-Titus Medical CenterCalcium oxalate dihydrate crystals detection in stone by infrared spectroscopyOrdered By: Kera Reid on 93-04-8886Ntapnwi oxalate dihydrate crystals Infrared spectroscopy Ql (Stone)Calcium oxalate dihydrate crystals detection in stone by infrared spectroscopy.[facility] Calcium oxalate monohydrate/Total in StoneOrdered By: Kera Reid on 06-07-2024 Calcium oxalate monohydrate (Stone) [Mass fraction]Calcium oxalate monohydrate/Total in Stone.[facility]itus Medical CenterCalcium phosphate measurementOrdered By: Kera Reid on 43-42-2806Gfsnyqf phosphate (Stone) [Mass fraction]Calcium phosphate measurementFisher-Titus Medical CenterCalculi, Urinaryon 94-02-0241We Oxalate Chtkkopud37 %Normal.[facility] Comment on above:Performed By: #### CBC #### [place] [address] USACa Oxalate Yewhmksrqcz71 %Normal.The [facility] Physician GroupComment on above:Performed By: #### CBC #### [place] [address] USAColor (U)BrownNormal.The [facility] Physician GroupComment on above:Performed By: #### CBC #### [place] [address] USAComment:CommentNormal.[facility] Physician GroupComment on above:Result Comment: Physician questions regarding Calculi Analysis contact [facility] at: [phone].Performed By: #### CBC #### [place] [address] USACompositionCommentNormal.[facility] Comment on above:Result Comment: Percentage (Represents the % composition) Performed By: #### CBC #### [place] [address] USADisclaimer:CommentNormal.[facility] Comment on above:Result Comment: This test was developed and its performance characteristics determined by [facility]. It has not been cleared or approved by the Food and Drug Administration. Performed at: [address], [place] [id number] Meter And Service Line Inspector: Lorie Farmer PhD, Phone: [phone] By: #### CBC #### [place] [id number] USANoteCommentNormal.The [facility] Physician GroupComment on above:Result Comment: Calculi report will follow via computer, mail or transformation architect delivery. PERFORMED BY: [place] [address] PATHOLOGIST BRIEFCASE SEWER PETER COFFEY M.D.Performed By: #### CBC #### [place] [address] USAPhotoCommentNormal.The [facility] Physician GroupComment on above:Result Comment: Photograph will follow under a separate coverPerformed By: #### CBC #### [place] [address] SGIDwkr3j2Psgaen.The [facility] Physician GroupComment on above:Result Comment: Multiple pieces received. Dimensions of the largest piece reported.Performed By: #### CBC #### [place] [address] USASourceCommentNormal.The [facility] Physician GroupComment on above:Result Comment: Right UreterPerformed By: #### CBC #### [place] [address] KEPKpdmpl84.0Normal.The [facility] Physician GroupComment on above:Performed By: #### CBC #### [place] [id number] USACalculus analysis interpretation in stoneOrdered By: Kera Reid on 10-04-1916Wryzvnef analysis [Interp]Calculus analysis interpretation in stone.[facility]itus Medical CenterComment on above:Physician questions regarding Calculi Analysis contactLabcorp at: [phone].Calculi report will follow via computer, mail or courierdelivery.Calculus analysis with calculus photography interpretation in stoneOrdered By: Kera Reid on 92-12-2499Rvhpmxdr analysis with calculus photography [Interp]Calculus analysis with calculus photography interpretation in stone.[facility] Medical CenterComment on above:Photograph will follow under a separate coverCalculus cholesterol measurementOrdered By: Kera Reid on 49-68-5601Gqkzksuuhvs (Stone) [Mass fraction]Cholesterol/Total in StoneFisher-Titus Medical CenterCellular material measurement in stone by estimated (mass/mass)Ordered By: Kera Reid on 50-28-2164Bscgjuav material Est (Stone) [Mass/Mass]Cellular material measurement in stone by estimated (mass/mass)[facility] Medical CenterCystine measurementOrdered By: Kera Reid on 83-48-1450Zqfrnyw (Unsp spec) [Moles/Vol] Cystine measurementFisher-Titus Medical CenterDetermination of color of calculusOrdered By: Kera Reid on 73-24-5032Yangw (Stone)Determination of color of calculus.[facility]itus Medical CenterDetermination of stone composition Ordered By: Kera Reid on 42-90-6584Oxeuhebbfdz Nom (Stone)Composition of stone. [facility] Medical CenterComment on above:Percentage (Represents the % composition)Determination of volume of calculusOrdered By: Kera Reid on 88-70-9860Bpsl (Stone) [Entitic vol]Size [Entitic volume] of Stone.[facility]itus Medical CenterComment on above:Multiple pieces received. Dimensions of the largest piecereported.FL urethrocystogram retroon 49-00-4819IO urethrocystogram retroOHIOHEALTH [place] [place] [address] Fluoroscopy Report Signed Patient: Ofe Saravia MR#: [id number] 88 : 1955 Acct:[id number] Age/Sex: 68 / F ADM Date: 06/07/24 [place]: [facility] Room: Type: [facility] Attending Dr: Kera Reid MD Copies to: Kera Reid MD Ordering Provider: Kera Reid MD Date of Service: 06/07/24 FL/FL [...] Panda Jr., D.OCari06/07/2024 4:38 PM Dictation Location: [place] [address] Transcribed By: [facility] 06/07/241637 Dictated By: Miguel Panda Jr, DO 06/07/241637 Signed By: 06/07/[address] [place] [address] Physician GroupHydroxyapatite [Energy Difference] in 24 hour UrineOrdered By: Kera Reid on 25-22-0636Ytfcaznpqbigst (24H U) [Energy diff]Hydroxyapatite [Energy Difference] in 24 hour Urine [facility] 06-07-2024L Specimen: [id number] Received: 06/07/24 Status: YOSVANY Granger Num: [id number] Spec Type: Surgical Subm Dr: Kera Reid MD Tissues: A Urinary Calculus (RIGHT URETERAL STONE) Procedures: Level 1 Gross Age/ Patient Sex Location Account Attending Physician Ofe Saravia Skinny 68/F [place] [id number] Kera Reid MD SPEC NUM: [id number] RECD: 06/07/24 STATUS: YOSVANY GRANGER NUM: [id number] JOHNNIE: 06/07/24 DR: Kera Reid MD ENTERED: 06/07/[address]: DIEGO TYPE: Surgical DEPT: S ENTERED BY: [id number] RECV BY: [id number] ORDERED: Level 1 Gross ORDERED: Level 1 Gross Pathological Diagnosis Right ureter stone, removal: Urinary calculus, gross examination only. Sent for chemical analysis. Clinical Information Right kidney stone ureteral stone Gross Description Part A is received fresh labeled with the patients name, date of , and R ureteral stone are multiple (at least 6), hernández-simms, granular calculi fragments (0.8 x 0.3 x 0.2 cm in aggregate. The specimen is sent to [facility] for chemical analysis. GROSS ONLY JG CPT Codes 53771 Specimen: [id number] Received: 06/07/24 Status: YOSVANY Granger Num: [id number] Spec Type: Surgical Subm Dr: Kera Reid MD Tissues: A Urinary Calculus (RIGHT URETERAL STONE) Procedures: Level 1 Gross Patient: JocyOfe tolentino Skinny [id number] (Continued) Signed (signature on file) Peter Coffey MD 06/09/[address] [place] [address] Physician GroupMeasurement of proportion of calculus composed of dried blood (mass/mass)Ordered By: Kera Reid on 06-07-2024 Blood.dried (Stone) [Mass fraction]Measurement of proportion of calculus composed of dried blood (mass/mass)[facility] Newberyite/Total in StoneOrdered By: Kera Reid on 16-27-7081Hqxwemlpoq (Stone) [Mass fraction]Newberyite/Total in StoneFisher-Titus Medical CenterNo Panel InformationOrdered By: Kera Reid on 67-36-1129Bkrrt 2,8 Dihydroxyadenine N/[facility] Hospitaltone Analysis DisclaimerComment.[facility] Medical CenterComment on above:This test was developed and its performance characteristicsdetermined by [employer]. It has not been cleared or approvedby the Food and Drug Administration.Performed at: [address] [id number] Director: Lorie Farmer PhD, Phone: [phone] BilirubinateN/[facility] Hospitaltone Calcium PalmitateN/[facility] Hospitalton Calcium StearateN/A [facility] Carbonate ApatiteN/[facility]tone Drug or MetaboliteN/[facility]tone Other ConstituentN/[facility] Hospitaltone XanthineN/[facility] Hospitalodium urate crystals detection in stone by infrared spectroscopyOrdered By: Kera Reid on 13-78-6652Owxbeu urate crystals Infrared spectroscopy Ql (Stone)Sodium urate crystals detection in stone by infrared spectroscopyMorrow County Hospitalpecimen source subject [Type] Ordered By: Kera Reid on 15-96-7243Hzsevcrx source subject NomSpecimen source subject [Type].[facility] Medical CenterComment on above:Right Ureter Triamterene measurement in calculusOrdered By: Kera Reid on 06-07-2024 Triamterene (Stone) [Mass fraction]Triamterene measurement in calculusFisher-Titus Medical CenterTriple phosphate/Total in StoneOrdered By: Kera Reid on 90-89-9500Pmrgnd phosphate (Stone) [Mass fraction]Triple phosphate/Total in StoneFisher-Titus Medical CenterUric acid dihydrate crystals detection in stone by infrared spectroscopyOrdered By: Kera Reid on 25-65-3823Dsjhm dihydrate crystals Infrared spectroscopy Ql (Stone)Uric acid dihydrate crystals detection in stone by infrared spectroscopyFisher-Titus Medical CenterBasic Metabolic Panelon 96-31-2034Whrzt gap [Moles/Vol]10.0 mmol/LNormal6.0-15.0The [facility] Physician GroupComment on above:Performed By: #### CBC #### [facility] [address] [place] [address] USACalcium [Mass/Vol]9.1 mg/dLNormal8.6-10.3The [facility] Physician GroupComment on above:Result Comment: PERFORMED BY: [place] [address] PATHOLOGIST BRIEFCASE SEWER TIFFANIE ROSS M.D.Performed By: #### CBC #### [place] [address] USAChloride [Moles/Vol]101 mmol/XUyxeyn09-070Nng [facility]ician GroupComment on above:Performed By: #### CBC #### [place] [address] USACO2 [Moles/Vol]32.9 mmol/LHigh21.0-31.0The [facility] Physician GroupComment on above:Performed By: #### CBC #### [place] [address] USACreatinine [Mass/Vol]0.62 mg/dLNormal0.60-1.20The [facility] Physician GroupComment on above:Performed By: #### CBC #### [place] [address] USAGFR/1.73 sq M.predicted MDRD (S/P/Bld) [Vol rate/Area] mL/min/{1.73_m2}NormalThe [facility] Physician GroupComment on above:Performed By: #### CBC #### [place] [address] USAGlucose [Mass/Vol]110 mg/eBNjgn86-820Zxx [facility] Physician GroupComment on above:Result Comment: Random Glucose Reference Range is dependent on time and content of last meal. Glucose of more than 200 mg/dL in a nonstressed, ambulatory subject supports the diagnosis of Diabetes Mellitus. ADA recommended reference rangePerformed By: #### CBC #### [place] [address] USAPotassium [Moles/Vol]4.9 mmol/LNormal3.5-5.1The [facility] Physician GroupComment on above:Result Comment: Hemolysis is present at a level that could interfere with the result. Contact lab if redraw is requiredPerformed By: #### CBC #### [facility] [address] [place] [address] USASodium [Moles/Vol]139 mmol/OVbliju650-273Knt [facility]ician GroupComment on above:Performed By: #### CBC #### [facility] [address] [place] [address] USAUrea nitrogen [Mass/Vol]17 mg/dLNormal7-25The [facility] Physician GroupComment on above:Performed By: #### CBC #### [facility] [address] [place] [address] USABasophils Auto (Bld) [#/Vol]Ordered By: Kera eRid on 31-49-2398Rcdhkseue (Bld) [#/Vol]Automated basophil count0.0-0.2FJ.W. Ruby Memorial HospitalBasophils/100 WBC Auto (Bld)Ordered By: Kera Reid on 76-70-8644Etpumexxn/100 WBC (Bld)Automated basophil %.[facility] Medical CenterCalcium [Mass/volume] in Serum or PlasmaOrdered By: Kera Reid on 22-58-1037Sftvyre [Mass/Vol]Calcium [Mass/volume] in Serum or Plasma8.6-10.3 [facility] Medical CenterCarbon dioxide, total [Moles/volume] in Serum or PlasmaOrdered By: Kera Reid on 88-75-9830TT1 [Moles/Vol]Carbon dioxide, total [Moles/volume] in Serum or FkdbgmWdnz91.0-31.0[facility] Chloride [Moles/volume] in Serum or PlasmaOrdered By: Kera Reid on 05-31-2024 Chloride [Moles/Vol]Chloride [Moles/volume] in Serum or Llzoux09-112QvnvpgsqjFisher-Titus Medical CenterComplete Blood Count Auto Diffon 60-80-6219Rjmyvacdw (Bld) [#/Vol]0.0 10*3/uLNormal0.0-0.2The [facility] Physician GroupComment on above:Result Comment: PERFORMED BY: [place] [address] PATHOLOGIST BRIEFCASE SEWER TIFFANIE ROSS M.D.Performed By: #### CBC #### [facility] [address] [place] [address] USABasophils/100 WBC (Bld)0.5 %Normal.The [facility] Physician GroupComment on above:Performed By: #### CBC #### [facility] [address] [place] [address] USAEosinophils (Bld) [#/Vol]0.1 10*3/uLNormal0.0-0.45The [facility] Physician GroupComment on above:Performed By: #### CBC #### [facility] [address] [place] [id number] USAEosinophils/100 WBC (Bld)1.8 %Normal.The [facility] Physician GroupComment on above:Performed By: #### CBC #### [place] [address] USAErythrocyte distribution width (RBC) [Ratio]13.3 %Normal 11.9-15.3The [facility] Physician GroupComment on above:Performed By: #### CBC #### [place] [id number] USAHematocrit (Bld) [Volume fraction]37.7 %Tozgbm98.0-46.4The [facility] Physician GroupComment on above:Performed By: #### CBC #### [place] [id number] USAHemoglobin (Bld) [Mass/Vol]12.9 g/fXOrnlhi56.8-15.4The [facility] Physician GroupComment on above:Performed By: #### CBC #### [facility] [address] [place] [id number] USALymphocytes (Bld) [#/Vol]1.4 10*3/uLNormal1.00-4.8The [facility] Physician GroupComment on above:Performed By: #### CBC #### [place] [id number] USALymphocytes/100 WBC (Bld)26.9 %Normal.The [facility] Physician GroupComment on above:Performed By: #### CBC #### [facility] [address] [place] [address] USAMCH (RBC) [Entitic mass]32.2 rlEzoomy62.7-34.3The [facility] Physician GroupComment on above:Performed By: #### CBC #### [facility] [address] [place] [address] USAMCV (RBC) [Entitic vol]94.0 wYLnyeqk97-092Rrs [facility] Physician GroupComment on above:Performed By: #### CBC #### [facility] [address] [place] [address] USAMean Corpuscular HGB Conc34.3 g/dSWjyuks52.0-35.0The [facility] Physician GroupComment on above:Performed By: #### CBC #### [facility] [address] [place] [address] USAMonocytes (Bld) [#/Vol]0.4 10*3/uLNormal0.0-0.8The [facility] Physician GroupComment on above:Performed By: #### CBC #### [facility] [address] [place] [address] USAMonocytes/100 WBC (Bld)8.2 %Normal.The [facility] Physician GroupComment on above:Performed By: #### CBC #### [facility] [address] [place] [address] USANeutrophils (Bld) [#/Vol]3.3 10*3/uLNormal1.8-7.7The [facility] Physician GroupComment on above:Performed By: #### CBC #### [facility] [address] [place] [id number] USANeutrophils/100 WBC (Bld)62.6 %Normal.The [facility] Physician GroupComment on above:Performed By: #### CBC #### [place] [address] USANRBC%0.0 /100{WBC}Normal0-0.5The [facility] Comment on above:Performed By: #### CBC #### [facility] [address] [place] [address] USAPlatelet mean volume (Bld) [Entitic vol]7.7 fLNormal 6.3-10.7The [facility] Physician GroupComment on above:Performed By: #### CBC #### [facility] [address] [place] [address] USAPlatelets (Bld) [#/Vol]290 10*3/lCYbuxje507-572Qqw [facility] Physician GroupComment on above:Performed By: #### CBC #### [facility] [address] [place] [address] USARBC (Bld) [#/Vol]4.01 10*6/uLNormal3.60-5.00The [facility] Physician GroupComment on above:Performed By: #### CBC #### [facility] [address] [place] [address] USAWBC (Bld) [#/Vol]5.3 10*3/uLNormal3.8-11.6The [facility] Physician GroupComment on above:Performed By: #### CBC #### [facility] [address] [place] [address] USACreatinine [Mass/volume] in Serum or PlasmaOrdered By: Kera Reid on 76-59-1318Uicepoialh [Mass/Vol]Creatinine [Mass/volume] in Serum or Plasma0.60-1.20[facility] Medical CenterEosinophils Auto (Bld) [#/Vol] Ordered By: Kera Reid on 31-42-2174Xqcvoklwamt (Bld) [#/Vol]Automated eosinophil count0.0-0.45[facility] Medical CenterEosinophils/100 WBC Auto (Bld) Ordered By: Kera Reid on 38-41-7875Yfjjutaitdq/100 WBC (Bld)Automated eosinophil %.[facility] Medical CenterErythrocyte distribution width Auto (RBC) [Ratio]Ordered By: Krea Reid on 91-25-9980Tpxtntlqtpc distribution width (RBC) [Ratio]Erythrocyte distribution width [Ratio] by Automated count11.9-15.3 [facility] Medical CenterGlucose [Mass/volume] in Serum or PlasmaOrdered By: Kera Reid on 40-75-0015Dkinrwo [Mass/Vol]Glucose [Mass/volume] in Serum or GvirsiVazl07-896CgnrvndvmFisher-Titus Medical CenterComment on above:ADA recommended reference rangeRandom Glucose Reference Range is dependent on time and content of last meal. Glucose of more than 200 mg/dL in a nonstressed, ambulatory subject supports the diagnosisof Diabetes Mellitus.Hematocrit Auto (Bld) [Volume fraction]Ordered By: Kera Reid on 27-48-6733Unuwpleyei (Bld) [Volume fraction]Hematocrit [Volume Fraction] of Blood by Automated count 34.0-46.4FJ.W. Ruby Memorial HospitalHemoglobin [Mass/volume] in Blood Ordered By: Kera Reid on 66-28-2718Knykosaxnp (Bld) [Mass/Vol]Hemoglobin [Mass/volume] in Blood11.8-15.4FJ.W. Ruby Memorial HospitalLeukocytes [#/volume] corrected for nucleated erythrocytes in Blood by Automated coun Ordered By: Kera Reid on 72-67-3494HZC corrected for nucl RBC Auto (Bld) [#/Vol] Leukocytes [#/volume] corrected for nucleated erythrocytes in Blood by Automated coun3.8-11.6FJ.W. Ruby Memorial HospitalLymphocytes Auto (Bld) [#/Vol] Ordered By: Kera Reid on 75-52-8784Mypctjwfsbg (Bld) [#/Vol]Lymphocytes [#/volume] in Blood by Automated count1.00-4.8[facility] Lymphocytes/100 WBC Auto (Bld)Ordered By: Kera Reid on 71-72-7892Iawarvqdcev/100 WBC (Bld)Lymphocytes/100 leukocytes in Blood by Automated count.[facility] CenterMCH Auto (RBC) [Entitic mass]Ordered By: Kera Reid on 12-80-9722BJH (RBC) [Entitic mass]MCH [Entitic mass] by Automated count24.7-34.3 [facility] CenterMCHC Auto (RBC) [Mass/Vol]Ordered By: Kera Reid on 50-32-0725CDTV (RBC) [Mass/Vol]MCHC [Mass/volume] by Automated count 32.0-35.0[facility] CenterMCV Auto (RBC) [Entitic vol]Ordered By: Kera Reid on 90-58-9924KZM (RBC) [Entitic vol]MCV [Entitic volume] by Automated -687NqocdbozsFisher-Titus Medical CenterMonocytes Auto (Bld) [#/Vol]Ordered By: Kera Reid on 39-39-9069Keswkcewh (Bld) [#/Vol]Automated blood monocyte count0.0-0.8[facility] CenterMonocytes/100 WBC Auto (Bld)Ordered By: Kera Reid on 73-39-9274Wukvgmcoc/100 WBC (Bld)Automated monocyte %.[facility] CenterNeutrophils Auto (Bld) [#/Vol] Ordered By: Kera Reid on 40-82-1413Fpatxfgdaas (Bld) [#/Vol]Neutrophils [#/volume] in Blood by Automated count1.8-7.7[facility] Neutrophils/100 WBC Auto (Bld)Ordered By: Kera Reid on 49-98-7377Tzjcnnktjio/100 WBC (Bld)Automated neutrophil %.[facility] CenterNo Panel InformationOrdered By: Kera Reid on 05-43-5131Gpugowhzi GFR (CKD-EPI)> 60.0 mL/MinFisher-Titus Medical CenterPharmacy Creatinine Clearance (ChemN/A [facility] CenterNucleated erythrocytes [Presence] in Blood by Automated countOrdered By: Kera Reid on 13-68-5427Gvegzhgji RBC Auto Ql (Bld) Nucleated erythrocytes [Presence] in Blood by Automated count0-0.5FJ.W. Ruby Memorial HospitalPlatelet mean volume Auto (Bld) [Entitic vol]Ordered By: Kera Reid on 16-17-7411Ulutxddx mean volume (Bld) [Entitic vol]Platelet mean volume [Entitic volume] in Blood by Automated count6.3-10.7FJ.W. Ruby Memorial HospitalPlatelets Auto (Bld) [#/Vol]Ordered By: Kera Reid on 05-31-2024 Platelets (Bld) [#/Vol]Platelets [#/volume] in Blood by Automated -683 [facility] CenterPotassium [Moles/volume] in Serum or Plasma Ordered By: Kera Reid on 74-86-4045Ncvdmfvia [Moles/Vol]Potassium [Moles/volume] in Serum or Plasma3.5-5.1FJ.W. Ruby Memorial HospitalComment on above: Hemolysis is present at a level that could interfere with the result.Contact lab if redraw is requiredRBC Auto (Bld) [#/Vol]Ordered By: Kera Reid on 05-31-2024 RBC (Bld) [#/Vol]Erythrocytes [#/volume] in Blood by Automated count3.60-5.00 [facility] Hospitalerum or plasma anion gap determinationOrdered By: Kera Reid on 93-74-7478Ppuir gap [Moles/Vol]Serum or plasma anion gap determination6.0-15.0[facility] Hospitalodium [Moles/volume] in Serum or PlasmaOrdered By: Kera Reid on 56-68-1998Wtqlrm [Moles/Vol]Sodium [Moles/volume] in Serum or Geccsw961-518MjtblrvumFisher-Titus Medical CenterUrea nitrogen [Mass/volume] in Serum or PlasmaOrdered By: Kera Reid on 98-38-3279Hmat nitrogen [Mass/Vol]Urea nitrogen [Mass/volume] in Serum or Plasma7-25[facility] Medical CenterWBC Auto (Bld) [#/Vol]Ordered By: Kera Reid on 05-31-2024 WBC (Bld) [#/Vol]Leukocytes [#/volume] in Blood by Automated count3.8-11.6 [facility] Medical CenterECG 12 [place] 90-55-8194Gozrtl sinus rhythm at 68 bpm MN interval 144 ms QRS duration 90 ms QTc 446 ms pattern of septal myocardial infarction nonspecific ST-T abnormality no change compared [facility] the [facility] Work Phone: Urology Office/Clinic Noteon 23-34-2859Nwnuqis Office/Clinic NoteUrology Office/Clinic Note Chief Complaint flank pain HPI Staff 68yr old female pt here to discuss flank pain issues. Pt has had right sided flank pain x3 days. Also says she has a kidney stone stuck on her right side. She was supposed to have surgery to removestone with Dr. Reid last week. But during pre-surgical testing, she had an abnormal EKG. She now hasto see cardiology on 05/27/24 for approval to [...] E&M of Est. Patient Moderate 30-39 Min 07770 Influenza immunization status assessed 1030F Medication list [...] Urnls Dip Stick Auto w/o Microscopy POC 06163 2. Ureteral stone with hydronephrosis (N13.2: Hydronephrosis with renal and ureteral calculous obstruction) See #1 Ordered: E&M of Est. Patient Moderate 30-39 Min 11508 Follow-up With When Contact Information ANN FORTE PA-C, URL Only if needed [address] [place] [address] Business (1) Additional Instructions: Patient [...] Smokeless Tobacco Use:., 05/17/2024 (more content not included)...[facility] HospitalComment on above: Result Comment: Electronically Signed By: ANN FORTE PA-Cbr\Date and Time Signed: 05/17/2413:46 EDTAmbulatory Visit Summaryon 80-73-6700Zjggxdalwq Visit SummaryAmbulatory Visit Summary OFE SARAVIA :1955 Visit Date:04/13/2024 Ambulatory Visit Instructions Your Diagnosis Kidney stone Stress incontinence Hydronephrosis, right Flank pain Simple renal cyst Your Care Team Attending Physician - Cedric FLOYD, Kera Regalado Primary Care Physician - ASYA CLEMENTS JR, DO This Is Your Medications [...] Schedule the Following Appointments Follow Up with Cedric FLOYD, Kera Regalado, URL, URO When: Comments: Sched R [...] of the kidneys. The kidneys are a pairof organs that make urine. A kidney stone [...] the ribs (flank pain). Pain usually spreads (radiates)to the groin. ? Needing to urinate often [...] A focused beam o (more content not included)...[facility] Urology Office/Clinic Noteon 13-98-1792Xkrojxf Office/Clinic NoteUrology Office/Clinic Note Chief Complaint 9 month follow up with KUB, CEASAR HPI Staff 68 yr old [facility] patient here for 9 month f/u w/ KUB and CEASAR. KUB and CEASAR done 04/07/24 at [facility]. Per pt one stone passed about 2 [...] extracorporeal shockwave lithotripsy vs ureteroscopy with laser lithotripsy/stonebasket extraction possible stent. Risks/benefits of each were [...] permanent renal damage and need for more invasiveprocedures. -Will schedule cysto, Right RPG, ureteroscopy with Laser Lithotripsy, stent placement. The procedural risks, benefits, details, and treatment alternatives have been discussed with the patient. These include bleeding, infection, inability to break or retrieve all of the stone, injury to the ureter (the tube which connects the kidney to the bladder), injury to the kidney scarring of the ureter, andneed for repeat procedures, among others. Full informed [...] up to 0.7cm in LLP. No hydro. Personalreview: R measuring up to 7mm, L measuring 3-4mm. KUB 03/15/24 [facility] - No visible stones. CEASAR 03/15/24 [facility] - 7mm R nonobstructing nephrolith. Moderate R hydro. 6mm L nonobstructing nephr (more content not included)...[facility] HospitalComment on above:Result Comment: Electronically Signed By: Cedric FLOYD, Kera Regalado\.br\Date and Time Signed: 04/13/24 12:21EDT\.br\Electronically Co-Signed By: Andrew Marin A\.br\Date and Time Co-Signed: 04/13/24 11:45 EDT \.br\Electronically Co-Signed By: Andrew Marin A\.br\Date and Time Co-Signed: 04/13/24 11:46 EDTAmbulatory Visit Summaryon 30-92-1941Owyparxjok Visit Summary Ambulatory Visit Summary OFE SARAVIA :1955 Visit Date:03/17/2024 Ambulatory Visit Instructions Your Diagnosis Kidney stone Hydronephrosis, right Flank pain Stress incontinence Simple renal cyst Tests Performed CT Abdomen/Pelvis w/o Contrast -- Results Pending -- Please visit your patient portal for your results or contact your primary care physician. Your Care Team Attending Physician - ANN FORTE PA-C Primary Care Physician - ASYA CLEMENTS JR, DO This Is Your Medications [...] Follow-Up Appointments Thursday 11:00 AM EDT With: Cedric FLOYD, Kera Regalado Where: [facility] [address] [place] [address]- You Need to Schedule the Following Appointments Follow Up with ANN FORTE PA-C, URL When: Where: [address] [place] [address] [phone] Medications What How Much When Instructions Unchanged [...] you for choosing us for your care. [facility] HospitalUrology Office/Clinic Noteon 81-59-1563Uogasjz Office/Clinic NoteUrology Office/Clinic Note Chief Complaint Right flank pain [...] urine cx [place]. Urine cx 03/09/24: negative PVR: 0 ml [...] 6mm L nonobstructing nephrolith. No L hydro. [place] she was passing a stone 2wks ago. Had R flank pain. Had neg ucx 03/09/24 per PCP. Still havingmild intermittent pain but not as bad. Reviewed [...] start Flomax to help with stone passage, strainurine -Increase Ca intake with diet, if supplement [...] require monitoring Follow-up With When Contact Information Cedric FLOYD, Kera Regalado, URL, URO [address] [place] [address] [phone] Additional Instructions: keep 04/06/24 appt Patient Education Kidney Stones, Zmpd-mt-Wvia Documentation recorded by the scribe Alejandra Garcia accurately reflects the services(s) I performed anddecisions made by me. Authenticated by Ann Forte PA-C on 03/17/2024 14:49:21. I, Alejandra Garcia, personally scribed for Ann Forte PA-C on 03/17/2024 13:1 (more content not included)...[facility] HospitalComment on above: Result Comment: Electronically Signed By: ANN FORTE PA-C\.br\Date and Time Signed: 03/17/2414:49 EDT\.br\Electronically Co-Signed By: Alejandra Garcia\.jimmie\Date and Time Co-Signed: 03/17/24 13:16 EDTCreatinine (Bld) [Mass/Vol] Ordered By: Shasta Wade on 49-83-3605Ycgbjyppiq [Mass/Vol]0.6 mg/dL0.6-1.3 [facility] CenterComment on above:ER/ESD physician is notified/shown all ISTAT results.Critical values may be confirmed by laboratory testing ifdeemed necessary by ER attending doctor.No Panel InformationOrdered By: Shasta Wade on 76-04-3918Mwqohjm Estimated GFR (eGFR)> 60.0[facility] CenterCT ABD/PELVIS WO CONon [id number] ABD/PELVIS WO CONEXAMINATION: CT ABD/PELVIS WO CON, 11/12/2022 10:02 AM [...] Electronically authenticated by: ARMANDO HOLLINGSWORTH Date: 2022-11-12 11:22[facility] KIDNEYSon [id number] KIDNEYSUS KIDNEYS EXAM DATE: 07/08/2022 5:54 AM MST COMPARISON: Same day radiograph, CT abdomen and pelvis without contrast 07/31/2021 INDICATION: History of kidney stones. TECHNIQUE: Real-time ultrasound scanning of the kidneys and bladder was performed by the field support representative. Hotel Custodian static images are submitted for review. FINDINGS: [...] Electronically authenticated by: JARAD BENAVIDES Date: 2022-07-08 16:58[facility] SystemXR KUB 1 VIEWon [id number] KUB 1 VIEWEXAM: XR KUB 1 VIEW STUDY DATE: 07/08/2022 [...] Electronically authenticated by: JARAD BENAVIDES Date: 2022-07-08 17:05[facility] SystemXR DEXA BONE DENSITYon [id number] DEXA BONE DENSITY EXAMINATION: XR DEXA BONE DENSITY, 06/05/2022 11:17 AM EST HISTORY: [...] Electronically authenticated by: ARMANDO HOLLINGSWORTH Date: 2022-06-05 12:51[facility] SystemCT FOOT RT WO CONon [id number] FOOT RT WO CONEXAMINATION: CT FOOT RT WO CON HISTORY: Arthritis [...] Electronically authenticated by: ARMANDO HOLLINGSWORTH Date: 2022-02-27 18:17[facility] SystemT4 FREE/FREE THYROXon 15-24-3660Eakw T4 [Mass/Vol]1.0 ng/dL0.9 - 1.7 ng/dLCincinnati VA Medical Center BLDon 16-90-0425WMR Qn2.420 m[IU]/L0.270 - 4.200 mIU/LCleveland Clinic Vital Signs Date TimeVital SignValuePerforming DhbtktdifMdjqdqdy31-12-9549 09:37-0400Body onbjng892 cmAdarsMethodist TexSan Hospitalepureddy MD Work Phone: [facility]08-27-2025 09:37-0400Body mass index (BMI) [Ratio]26.4 kg/n7ZqvqeqIsaac Gracia MD Work Phone: [facility]08-27-2025 09:37-0400Body temperature 97.39 [degF]Isaac Gracia MD Work Phone: [facility]08-27-2025 09:37-0400Body sidzzp33.1 kgIsaac Gracia MD Work Phone: [facility]08-27-2025 09:37-0400Diastolic blood pimgrjua50 mm[Hg]Isaac Gracia MD Work Phone: [facility]08-27-2025 09:37-0400Heart rate73 /min Isaac Gracia MD Work Phone: [facility]08-27-2025 09:37-0400Respiratory rate 16 /minIsaac Gracia MD Work Phone: [facility]08-27-2025 09:37-9112HlN7% (BldA) [Mass fraction]96 %Isaac Gracia MD Work Phone: [facility]08-27-2025 09:37-0400Systolic blood sdupycpp948 mm[Hg]Isaac Gracia MD Work Phone: [facility]08-26-2025 12:51-0400Body mass index (BMI) [Ratio]26.47 kg/y2YhchvlShawna Flores MD, PhD Work Phone: [facility]08-26-2025 12:51-0400Body blnyea89.3 kgShawna Flores MD, PhD Work Phone: [facility]08-26-2025 12:51-0400Diastolic blood nlxauluy73 mm[Hg]Shawna Flores MD, PhD Work Phone: [facility]08-26-2025 12:51-0400Heart rate72 /min Shawna Flores MD, PhD Work Phone: [facility]08-26-2025 12:51-4969UwZ6% (BldA) [Mass fraction]97 %Shawna Flores MD, PhD Work Phone: [phone]08-26-2025 12:51-0400Systolic blood uvhzzbty03 mm[Hg]Shawna Flores MD, PhD Work Phone: [facility]08-12-2025 10:29-0400Body mass index (BMI) [Ratio]26.7 kg/q7XwchxtocWashington Regional Medical Center [employer] [employer] [employer] Work Phone: [phone]62 10:29-0400Body temperature 97.9 [degF][facility] [employer] Work Phone: ZTriHealthTnlfqo19-20-9446 10:29-0400Body mmviss04 kg [facility] [employer] Work Phone: CTriHealthIitguo23-84-3904 10:29-0400Diastolic blood mm[Hg][facility] [employer] Work Phone: VTriHealthKmzwbu08-35-0903 10:29-0400Heart rate78 /min [facility] [employer] Work Phone: [place] [address]-12-2025 10:29-0400Respiratory rate 16 /minWashington Regional Medical Center [employer] Work Phone: ITriHealthQkhsqi57-26-3791 10:29-2720GtH6% (BldA) [Mass fraction]100 %[facility] [employer] Work Phone: [place] [address]-12-2025 10:29-0400Systolic blood vxfqzcpa215 mm[Hg][facility] [employer] Work Phone: CTriHealthOcuken58-89-0922 09:28-0400Body mass index (BMI) [Ratio]26.97 kg/m2MIREYA Smart MD Work Phone: [facility]08-04-2025 09:28-0400Body xohbfu13.8 kgMIREYA Smart MD Work Phone: [facility]08-04-2025 09:28-0400Diastolic blood tfzaxeas85 mm[Hg]MIREYA Smart MD Work Phone: [facility]08-04-2025 09:28-0400Heart rate76 /min MIREYA Smart MD Work Phone: [facility]08-04-2025 09:28-0400Respiratory rate 16 /HangMIREYA Smart MD Work Phone: [facility]08-04-2025 09:28-8892XsS0% (BldA) [Mass fraction]97 %MIREYA Smart MD Work Phone: [facility]08-04-2025 09:28-0400Systolic blood sffktqbo749 mm[Hg]MIREYA Smart MD Work Phone: [facility]07-28-2025 09:34-0400Body mass index (BMI) [Ratio]26.87 kg/m2MIREYA Smart MD Work Phone: [facility]07-28-2025 09:34-0400Body temperature 96.01 [degF]MIREYA Smart MD Work Phone: [facility]07-28-2025 09:34-0400Body .5 kgMIREYA Smart MD Work Phone: [facility]07-28-2025 09:34-0400Diastolic blood gvinxwcg02 mm[Hg]IMREYA Smart MD Work Phone: [facility]07-28-2025 09:34-0400Heart rate77 /min MIREYA Smart MD Work Phone: [place] [address]-28-2025 09:34-0400Respiratory rate 18 /HangMIREYA Smart MD Work Phone: [facility]07-28-2025 09:34-0400Systolic blood jfitchnh875 mm[Hg]MIREYA Smart MD Work Phone: [facility]07-23-2025 15:28-0400Body mass index (BMI) [Ratio]26.97 kg/m2MIREYA Smart MD Work Phone: [facility]07-23-2025 15:28-0400Body temperature 97.59 [degF]MIREYA Smart MD Work Phone: [facility]07-23-2025 15:28-0400Body pvetlp88.8 kgMIREYA Smart MD Work Phone: [facility]07-23-2025 15:28-0400Diastolic blood gmvsybjc63 mm[Hg]MIREYA Smart MD Work Phone: [facility]07-23-2025 15:28-0400Heart rate84 /min MIREYA Smart MD Work Phone: [facility]07-23-2025 15:28-0400Respiratory rate 18 /HangMIREYA Smart MD Work Phone: [facility]07-23-2025 15:28-8952KgX2% (BldA) [Mass fraction]97 %MIREYA Smart MD Work Phone: [facility]07-23-2025 15:28-0400Systolic blood omfhtqxx968 mm[Hg]MIREYA Smart MD Work Phone: [facility]07-21-2025 15:44-0400Body jizwgi306.99 Shalini Clements JR Work Phone: [facility]07-21-2025 15:44-0400 Body mass index (BMI) [Ratio]26.5 kg/f4MensxbuAsya Clements JR Work Phone: [phone] [place], [place] 3517807-21-2025 15:44-0400 Body zkmitv72.28 kgAsya Clements JR Work Phone: [phone]07-21-2025 15:44-0400 Diastolic blood ginulndn44 mm[Hg]Asya Clements JR Work Phone: [phone]07-21-2025 15:44-0400 Heart rate84 /minAsya Clements JR Work Phone: [phone])916-[address] [place], [place] 3517807-21-2025 15:44-0400 Respiratory rate16 /minAsya Clements JR Work Phone: [phone])921-[address] [place], [place] 3517807-21-2025 15:44-0400 SaO2% (BldA) [Mass fraction]92 %Asya Clements JR Work Phone: [phone])858-[address] [place], [place] 3517807-21-2025 15:44-0400 Systolic blood zcbbittg271 mm[Hg]Asya Clements JR Work Phone: 1(044)270-[address] [place], [place] 3517807-17-2025 08:25-0400 Body agsbmf453 cmNA Kai FLOYD Work Phone: [facility]07-17-2025 08:25-0400Body mass index (BMI) [Ratio]27.18 kg/m2MIREYA Smart MD Work Phone: [facility]07-17-2025 08:25-0400Body temperature 97.39 [degF]MIREYA Smart MD Work Phone: [facility]07-17-2025 08:25-0400Body rvesnz53.4 kgMIREYA Smart MD Work Phone: [facility]07-17-2025 08:25-0400Diastolic blood mm[Hg]MIREYA Smart MD Work Phone: [facility]07-17-2025 08:25-0400Heart rate78 /min MIREYA Smart MD Work Phone: [facility]07-17-2025 08:25-0400Respiratory rate 16 /HangMIREYA Smart MD Work Phone: [facility]07-17-2025 08:25-5472PjT8% (BldA) [Mass fraction]97 %MIREYA Smart MD Work Phone: [facility]07-17-2025 08:25-0400Systolic blood txiplgxc325 mm[Hg]NA Kai FLOYD Work Phone: [facility]07-10-2025 08:18-0400Body tnwzap056 cm Isaac Gracia MD Work Phone: [phone] [place], [place] 4160207-10-2025 08:18-0400Body mass index (BMI) [Ratio]27.41 kg/h4HslcjpIsaac Gracia MD Work Phone: cTriHealthJgjnhq24-30-8592 08:18-0400Body temperature 97.9 [degF]Isaac Gracia MD Work Phone: [phone] [place], [place] 4160207-10-2025 08:18-0400Body oblhbt23.1 kgAdatho Gracia MD Work Phone: [phone] [place], [place] 4160207-10-2025 08:18-0400Diastolic blood uvczzhid65 mm[Hg]Isaac Gracia MD Work Phone: cTriHealthNbbtbp89-83-9142 08:18-0400Heart rate81 /min Isaac Gracia MD Work Phone: 1([phone])953-[address] [place] [address]-10-2025 08:18-0400Respiratory rate 16 /minAdatho Gracia MD Work Phone: [place] [address]-10-2025 08:18-7885EoL7% (BldA) [Mass fraction]94 %Isaac Gracia MD Work Phone: cTriHealthYzzgee65-03-9667 08:18-0400Systolic blood lhfeqddz830 mm[Hg]Isaac Garcia MD Work Phone: cTriHealthHyinrs40-56-5269 09:51-0400Body cm Isaac Gracia MD Work Phone: cTriHealthTteseu77-46-8203 09:51-0400Body mass index (BMI) [Ratio]28.43 kg/o2ImdmohIsaac Gracia MD Work Phone: cTriHealthQwtzhb10-27-5417 09:51-0400Body temperature 97.2 [degF]Isaac Gracia MD Work Phone: cTriHealthEkevnf99-14-9570 09:51-0400Body drefpx67.1 kgAdatho Gracia MD Work Phone: cTriHealthSwnvfg59-59-2552 09:51-0400Diastolic blood auxosdam50 mm[Hg]Isaac Gracia MD Work Phone: 1([phone])641-[address] [place], [place] 4160206-18-2025 09:51-0400Heart rate71 /min Isaac Gracia MD Work Phone: cTriHealthTegxfk70-44-7545 09:51-0400Respiratory rate 16 /minAdatho Gracia MD Work Phone: cTriHealthVechwv78-15-5280 09:51-3301VzL3% (BldA) [Mass fraction]99 %Isaac Gracia MD Work Phone: cTriHealthCgcoxb79-74-7981 09:51-0400Systolic blood hcpqqisj857 mm[Hg]Isaac Gracia MD Work Phone: cTriHealthDxmdmd23-70-4319 09:52-0400Body cm Ulisses Baum PA-C Work Phone: [facility]05-28-2025 09:52-0400Body mass index (BMI) [Ratio]29.34 kg/n6JwysbUlisses Baum PA-C Work Phone: [facility]05-28-2025 09:52-0400Body temperature 97.2 [degF]Ulisses Isrrael PA-C Work Phone: [facility]05-28-2025 09:52-0400Body jddiie23.8 kgMinflako Salaser PA-C Work Phone: [facility]05-28-2025 09:52-0400Diastolic blood aexqhlca25 mm[Hg]Ulisses Isrrael PA-C Work Phone: [facility]05-28-2025 09:52-0400Heart rate82 /min Ulisses Isrrael PA-C Work Phone: [facility]05-28-2025 09:52-0400Respiratory rate 16 /minMinflako Isrrael PA-C Work Phone: [facility]05-28-2025 09:52-5934WeU4% (BldA) [Mass fraction]94 %Ulisses Isrrael PA-C Work Phone: [facility]05-28-2025 09:52-0400Systolic blood oqeisnwt622 mm[Hg]Ulisses Isrrael PA-C Work Phone: [facility]05-07-2025 11:10-0400Body vknekc532 cm [place] Krishna [employer] Work Phone: cTriHealthWfviur31-59-4549 11:10-0400Body mass index (BMI) [Ratio]29.17 kg/g1Fdqjustho Gracia MD Work Phone: cTriHealthQdmdtp85-50-2966 11:10-0400Body temperature 97.59 [degF][place] Estrada [employer] Work Phone: [place] Hpndrh03-68-5313 11:10-0400Body oozfux10.3 kgAdatho Gracia MD Work Phone: [facility]and Dmstuu16-91-0307 11:10-0400Diastolic blood apjdkopd33 mm[Hg]Isaac Gracai MD Work Phone: [facility]and Gypjcw36-67-4089 11:10-0400Heart rate79 /min Isaac Gracia MD Work Phone: [facility]and Cfozbu47-92-6395 11:10-0400Respiratory rate 16 /minIsaac Gracia MD Work Phone: [facility]and Ezqqml22-24-7180 11:10-2492FxU6% (BldA) [Mass fraction]97 %Isaac Gracia MD Work Phone: [facility]and Dkkqvv93-61-1533 11:10-0400Systolic blood zhfdecps935 mm[Hg]Isaac Gracia MD Work Phone: [facility]and Fifmpk63-05-0228 10:00-0400Body temperature 97.9 [degF]Isaac Gracia MD Work Phone: cTriHealthXbzqbn21-29-1550 13:09-0400Body yguqpe129.3 Anupama Wade PA Work Phone: [facility] CenterGeykdxrmex44-46-4871 13:09-0400Body mass index (BMI) [Ratio]28.06 kg/m2Shasta ONEIL Work Phone: noE[facility] HospitalZwftcfjenm95-51-5057 13:09-0400Body bircut04.18 kgShasta ONEIL Work Phone: noE[facility] HospitalGjtsluqbbz67-04-9737 13:09-0400Diastolic blood tsxytojr22 mm[Hg]Shasta ONEIL Work Phone: NOE[facility] HospitalHldxahflgl21-69-0669 13:09-0400Heart rate86 /min Shasta ONEIL Work Phone: NOE[facility] HospitalGcfxozjevu25-60-8101 13:09-0400Respiratory rate16 /minShasta Wade PA Work Phone: noE[facility] HospitalIywvttebcy16-69-2718 13:09-9885IhA4% (BldA) [Mass fraction]96 %Shasta ONEIL Work Phone: [facility] CenterMqpiwvlsit36-23-5875 13:09-0400Systolic blood nxzerutv596 mm[Hg]Shasta ONEIL Work Phone: [facility] CenterLblkkmmumg30-21-0866 08:58-0400Body mass index (BMI) [Ratio]29.04 kg/q6FjbnlqIsaac Gracia MD Work Phone: cTriHealthWetzmt71-24-9918 08:58-0400Body temperature 97.3 [degF]Isaac Gracia MD Work Phone: [place] [address]-16-2025 08:58-0400Body jmoprh27.9 kgAdatho Gracia MD Work Phone: cTriHealthZqiofp45-63-4675 08:58-0400Diastolic blood juurxbjp14 mm[Hg]Isaac Gracia MD Work Phone: cTriHealthEkyimd60-31-6727 08:58-0400Heart slpf668 /minAdatho Gracia MD Work Phone: cTriHealthQyzacr26-47-1480 08:58-0400Respiratory rate 18 /minAdatho Gracia MD Work Phone: cTriHealthHkkehb78-33-6764 08:58-0755FfT7% (BldA) [Mass fraction]99 %Isaac Gracia MD Work Phone: cTriHealthHohpcm62-62-7899 08:58-0400Systolic blood pswavoss571 mm[Hg]Isaac Gracia MD Work Phone: cTriHealthWspyam30-89-5169 09:07-0400Body cm Ann-Marie Gomez APRN.CNP Work Phone: [facility]03-26-2025 09:07-0400Body mass index (BMI) [Ratio]29.04 kg/i6PvpfroAnn-Marie Gomez APRN.CNP Work Phone: [facility]03-26-2025 09:07-0400Body temperature 97.3 [degF]Ann-Marie Christy [employer] Work Phone: [facility]03-26-2025 09:07-0400Body .9 kgJaimee Christy [employer] Work Phone: [facility]03-26-2025 09:07-0400Diastolic blood uqgwcudk95 mm[Hg]Ann-Marie Christy [employer] Work Phone: [facility]03-26-2025 09:07-0400Heart ozai459 /minJaimee Christy [employer] Work Phone: [facility]03-26-2025 09:07-0400Respiratory rate 16 /minJaimee Christy [employer] Work Phone: [facility]03-26-2025 09:07-5329OnC7% (BldA) [Mass fraction]96 %Ann-Marie Christy [employer] Work Phone: [facility]03-26-2025 09:07-0400Systolic blood declnbgu958 mm[Hg]Ann-Marie Christy [employer] Work Phone: [facility]03-24-2025 12:41-0400Body xwkfvo884.3 Anupama ONEIL Work Phone: [facility] HospitalGsqaadcros84-17-3176 12:41-0400Body mass index (BMI) [Ratio]27.91 kg/m2Shasta ONEIL Work Phone: NO[facility] HospitalGdycoyymsa91-54-4277 12:41-0400Body jbryqf26.73 kgShasta ONEIL Work Phone: no[facility] HospitalClvfaubyua98-64-5339 12:41-0400Diastolic blood tqkiccuf41 mm[Hg]Shasta ONEIL Work Phone: [place] [address]Iygerwbkzv56-16-3082 12:41-0400Heart wfyc012 /min Shasta ONEIL Work Phone: [place] [address]Amthslefgu33-69-0958 12:41-0400Respiratory rate16 /minShasta ONEIL Work Phone: NO[facility] HospitalBfkcnrlqar58-70-0368 12:41-6116NeH8% (BldA) [Mass fraction]92 %Shasta ONEIL Work Phone: NO[facility] HospitalQaxzznklxa39-76-5293 12:41-0400Systolic blood ffpgewnq785 mm[Hg]Shasta Wade PA Work Phone: NOE[facility] HospitalPpndyawvbf65-89-9447 11:19-0500Body temperature 97.9 [degF]Vincent Bundridge [employer] Work Phone: [place] Kthcmy80-07-9559 11:19-0500Diastolic blood glqmuill43 mm[Hg]Vincent Bundridge [employer] Work Phone: [place] Fakeuc79-86-3346 11:19-0500Heart rate69 /min Vincent Bundridge [employer] Work Phone: [place] Ziduqn59-80-1542 11:19-0500Respiratory rate 18 /minRhodes Bundridge [employer] Work Phone: [place] Scgslz37-16-5424 11:19-7357SsA9% (BldA) [Mass fraction]94 %Vincent Bundridge [employer] Work Phone: [place] Pyjsnu74-39-3999 11:19-0500Systolic blood cypzswtj83 mm[Hg]Vincent Bundridge [employer] Work Phone: [place] Mbhigh04-25-4290 10:01-0500Body mass index (BMI) [Ratio]29.27 kg/a9Ifvjbn Christy [employer] Work Phone: [facility]03-06-2025 10:01-0500Body temperature 97.59 [degF]Ann-Marie Christy [employer] Work Phone: [facility]03-06-2025 10:01-0500Body ltbmee01.6 kgJaimee Christy [employer] Work Phone: [facility]03-06-2025 10:01-0500Diastolic blood vraezhvf73 mm[Hg]Ann-Marie Christy [employer] Work Phone: [facility]03-06-2025 10:01-0500Heart rate74 /min Ann-Marie Christy [employer] Work Phone: [facility]03-06-2025 10:01-0500Respiratory rate 18 /minJaimee Christy [employer] Work Phone: [facility]03-06-2025 10:01-2760BnQ9% (BldA) [Mass fraction]96 %Ann-Marie Christy [employer] Work Phone: [facility]03-06-2025 10:01-0500Systolic blood fvvlyckp507 mm[Hg]Ann-Marie Christy [employer] Work Phone: [facility]02-26-2025 08:45-0500Body dubbrg635 cm Isaac Gracia MD Work Phone: [facility] ClinicComment on above:verified by 2 caregivers. no ifnre03-68-0031 08:45-0500Body mass index (BMI) [Ratio]30.83 kg/d6IbppumIsaac Gracia MD Work Phone: cTriHealthKkcfwi64-41-2214 08:45-0500Body temperature 98.01 [degF]Isaac Gracia MD Work Phone: [facility] Rvoqtg79-95-7048 08:45-0500Body klpahd42.2 kgIsaac Gracia MD Work Phone: [facility] Ujctzv66-78-0924 08:45-0500Diastolic blood xzehvsit35 mm[Hg]Isaac Gracia MD Work Phone: [facility] Fcgfpa04-14-0628 08:45-0500Heart rate74 /min Isaac Gracia MD Work Phone: cTriHealthXbigsa56-76-6506 08:45-0500Respiratory rate 16 /minAdatho Gracia MD Work Phone: [facility] Eaftli84-11-6717 08:45-3224XdI2% (BldA) [Mass fraction]95 %Isaactho Gracia MD Work Phone: [facility] Zbyjlu91-03-9820 08:45-0500Systolic blood gvtjjyel942 mm[Hg]Isaac Gracia MD Work Phone: cTriHealthZhdipc54-92-8743 12:00-0500Body temperature 99.3 [degF]Asya Clements JR Work Phone: [phone]02-24-2025 12:00-0500 Diastolic blood srfvnyko44 mm[Hg]Asya Clements JR Work Phone: 1(583)998-[address] [place], [place] 3517802-24-2025 12:00-0500 Heart rate78 /minAsya Clements JR Work Phone: 1(521)505-[address] [place], [place] 3517802-24-2025 12:00-0500 Respiratory rate18 /minAsya Clements JR Work Phone: 1(976)642-[address] [place], [place] 3517802-24-2025 12:00-0500 SaO2% (BldA) [Mass fraction]99 %Asya Clements JR Work Phone: 1(661)[phone]02-24-2025 12:00-0500 Systolic blood mm[Hg]Asya Clements JR Work Phone: [phone]02-24-2025 08:00-0500 Inhaled oxygen flow rate2 L/minAsya Clements JR Work Phone: 4([phone]02-24-2025 06:00-0500 Body kgIvetteraiden Clements JR Work Phone: 1(625)085-[address] [place], [place] 3517802-19-2025 16:21-0500 Body .26 cmCharles Valone JR Work Phone: 1(390)950-[address] [place], [place] 3517802-19-2025 01:34-0500 Diastolic blood mm[Hg]Asya Clements JR Work Phone: 1(441)332-[address] [place], [place] 3517802-19-2025 01:34-0500 Heart rate87 /Adam Clements JR Work Phone: 5(791)636-[address] [place], [place] 3517802-19-2025 01:34-0500 Respiratory rate16 /Adam Clements JR Work Phone: 1(554)810-[address] [place], [place] 3517802-19-2025 01:34-0500 SaO2% (BldA) [Mass fraction]94 %Asya Clements JR Work Phone: 1(143)510-[address] [place], [place] 3517802-19-2025 01:34-0500 Systolic blood oqwffkhs43 mm[Hg]Asya Clements JR Work Phone: 3(122)808-[address] [place], [place] 3517802-18-2025 18:42-0500 Body iyaclx931.26 Shalini Clements JR Work Phone: 0(434)728-[address] [place], [place] 3517802-18-2025 18:42-0500 Body bconfentkwj89.3 [degF]Asya Clements JR Work Phone: 6(755)627-[address] [place], [place] 3517802-18-2025 18:42-0500 Body nygzbf88.71 kgAsya Clements JR Work Phone: 9(089)099-[address] [place], [place] 3517802-12-2025 14:53-0500 Body fssjbwdomcd71.59 [degF]Juan C Schreiber MD Work Phone: [facility]02-12-2025 14:53-0500Diastolic blood vrbxitce43 mm[Hg]Juan C Schreiber MD Work Phone: [facility]02-12-2025 14:53-0500Heart rate79 /min Juan C Schreiber MD Work Phone: [facility]02-12-2025 14:53-0500Respiratory rate 18 /minSgabo Schreiber MD Work Phone: [facility]02-12-2025 14:53-4494TgU7% (BldA) [Mass fraction]96 %Juan C Schreiber MD Work Phone: [facility]02-12-2025 14:53-0500Systolic blood uwjxzkle970 mm[Hg]Juan C Schreiber MD Work Phone: [facility]02-12-2025 13:51-0500Body .72 Shalini Clements JR Work Phone: [facility]02-12-2025 13:51-0500 Body dqhedp77.71 kgAsya Clements Work Phone: [facility]02-07-2025 13:13-0500 Body okqima731.7 cmWashington [facility] [employer] Work Phone: KTriHealthRlxdaj12-35-5454 13:13-0500Body mass index (BMI) [Ratio]30.91 kg/g2QydxhvmfWashington Regional Medical Center [employer] Work Phone: BTriHealthWahwfc04-44-4015 13:13-0500Body temperature 97.7 [degF][facility] [employer] Work Phone: TTriHealthIetkzp96-33-9759 13:13-0500Body hhsbje47.2 kgWashington [facility] [employer] Work Phone: QTriHealthEnzgbh40-74-7303 13:13-0500Diastolic blood jsnwfyom99 mm[Hg][facility] [employer] Work Phone: ETriHealthTwnzjf86-56-3849 13:13-0500Heart rate79 /min [facility] [employer] Work Phone: ATriHealthQxpxnb51-41-8267 13:13-0500Respiratory rate 16 /minCopper Springs Hospitalrid [employer] Work Phone: BTriHealthWfwjwt48-15-7074 13:13-1069YuJ4% (BldA) [Mass fraction]98 %[facility] [employer] Work Phone: cTriHealthFpjxtf09-70-7659 13:13-0500Systolic blood ovcljreu453 mm[Hg]Vincent Peres [employer] Work Phone: cTriHealthYfkcsl80-20-8665 14:38-0500Body temperature 99.1 [degF]Juan C Schreiber MD Work Phone: [facility]02-05-2025 14:38-0500Diastolic blood usxuxswq49 mm[Hg]Juan C Schreiber MD Work Phone: [facility]02-05-2025 14:38-0500Heart rate83 /min Juan C Schreiber MD Work Phone: [facility]02-05-2025 14:38-0500Respiratory rate 18 /minSgabo Schreiber MD Work Phone: [place] [address]-05-2025 14:38-9621FqZ7% (BldA) [Mass fraction]95 %Juan C Schreiber MD Work Phone: [facility]02-05-2025 14:38-0500Systolic blood hyegqlip784 mm[Hg]Juan C Schreiber MD Work Phone: [facility]02-04-2025 13:35-0500Body mass index (BMI) [Ratio]30.98 kg/j8Ypvoc Delasos DO Work Phone: [facility]02-04-2025 13:35-0500Body temperature 97.81 [degF]Sarabjit Delasos DO Work Phone: [facility]02-04-2025 13:35-0500Body dnkroy48.4 kgLukas Delasos DO Work Phone: [facility]02-04-2025 13:35-0500Diastolic blood ujgivhsr77 mm[Hg]Sarabjit Delasos DO Work Phone: [facility]02-04-2025 13:35-0500Heart rate89 /min Sarabjit Crowley DO Work Phone: [facility]02-04-2025 13:35-0500Respiratory rate 18 /minSarabjit Crowley DO Work Phone: [facility]02-04-2025 13:35-8352BfQ2% (BldA) [Mass fraction]95 %Sarabjit Crowley DO Work Phone: [facility]02-04-2025 13:35-0500Systolic blood mm[Hg]Sarabjit Crowley DO Work Phone: [facility]02-04-2025 10:32-0500Body gtagyb927.7 [facility] Hospitalrashmi Sharma MD Work Phone: [phone]52 10:32-0500Body mass index (BMI) [Ratio]30.42 kg/y0YvshoSarabjit Sharma MD Work Phone: [phone]19 10:32-0500Body rktmud87.72 kgSarabjit Sharma MD Work Phone: cTriHealthNqedil61-76-8253 09:50-0500Body xjdqyp773.7 cmYasmeen Narayan MD Work Phone: [phone]02-03-2025 09:50-0500Body mass index (BMI) [Ratio]30.61 kg/d7KqldwqoYasmeen Narayan MD Work Phone: [phone]02-03-2025 09:50-0500Body temperature 97.5 [degF]Yasmeen Narayan MD Work Phone: [phone]02-03-2025 09:50-0500Body .3 kgYasmeen Narayan MD Work Phone: [phone]02-03-2025 09:50-0500Diastolic blood kywsjnex89 mm[Hg]Yasmeen Narayan MD Work Phone: [facility]02-03-2025 09:50-0500Heart rate79 /min Yasmeen Narayan MD Work Phone: [facility]02-03-2025 09:50-0500Respiratory rate 20 /minYasmeen Narayan MD Work Phone: [facility]02-03-2025 09:50-7881SeC5% (BldA) [Mass fraction]97 %Yasmeen Narayan MD Work Phone: [facility]02-03-2025 09:50-0500Systolic blood oognqhiu967 mm[Hg]Yasmeen Narayan MD Work Phone: [facility]12-05-2024 12:53-0500Diastolic blood mm[Hg]Kera Lue [facility] [place] 430552-05-2024 12:53-0500Heart rate68 /minKathy Lue [facility] [place] 430552-05-2024 12:53-0500Respiratory rate16 /minKathy Lue [facility] [place] 430552-05-2024 12:53-0500Systolic blood xidhchrc870 mm[Hg]Kera Lue [facility] [place] 430551-19-2024 15:45-0500Diastolic blood bbtkyovn81 mm[Hg]Asya Clements JR Work Phone: [facility]11-19-2024 15:45-0500 Heart rate76 /minAsya Clements JR Work Phone: [facility]11-19-2024 15:45-0500 Respiratory rate20 /minAsya Clements JR Work Phone: [facility]11-19-2024 15:45-0500 SaO2% (BldA) [Mass fraction]94 %Asya Clements JR Work Phone: 1(292)311-[address] [place], [place] 3517811-19-2024 15:45-0500 Systolic blood bnlkagob899 mm[Hg]Asya Clements JR Work Phone: 1(075)170-[address] [place], [place] 3517811-19-2024 15:00-0500 Body cmabfnfbfqn46.9 [degF]Asya Clements JR Work Phone: 1(468)129-[address] [place], [place] 3517811-19-2024 14:25-0500 Inhaled oxygen flow rate8 L/minAsya Clements JR Work Phone: 1(781)[address]11-19-2024 11:54-0500 Body zudhvs913.26 cmCharaiden Clements JR Work Phone: 1(264)[address]11-19-2024 11:54-0500 Body qpozpp76 kgAsya Clements JR Work Phone: 1(519)386-[address] [place], [place] 3517811-19-2024 11:45-0500 Body weightAsya Clements JR Work Phone: 1(478)135-[address] [place], [place] 3517811-08-2024 09:43-0500 Diastolic blood xhnstvyx04 mm[Hg]Елена Griffin MD Work Phone: 8(413)113-[address] [place], [place] 2452011-08-2024 09:43-0500 Heart rate68 /minЕлена Griffin MD Work Phone: 7(792)171-[address] [place], [place] 2452011-08-2024 09:43-0500 Systolic blood fhgurcih449 mm[Hg]Елена Griffin MD Work Phone: 4(906)588-[address] [place], [place] 2452011-08-2024 09:42-0500 Body hphvex930.3 cmЕлена Griffin MD Work Phone: 8(174)619-[address] [place], [place] 2452011-08-2024 09:42-0500 Body mass index (BMI) [Ratio]31.16 kg/o8KotdkfЕлена Griffin MD Work Phone: 6(331)029-[address] [place], [place] 2452011-08-2024 09:42-0500 Body .71 kgЕлена Griffin MD Work Phone: [facility]10-29-2024 13:17-0400 Diastolic blood eykozokv92 mm[Hg]ANN RAAD [facility]10-29-2024 13:17-0400Mean blood pcdzqdue291 mm[Hg]ANN RAAD [facility]10-29-2024 13:17-0400Systolic blood wyuddfho670 mm[Hg]ANN RAAD [facility]10-29-2024 13:13-0400Blood Pressure LocationJENNIFER RAAD [facility]10-29-2024 13:13-0400Diastolic blood mm[Hg]ANN RAAD [facility]10-29-2024 13:13-0400Heart rate74 /minJENNIFER RAAD [facility]10-29-2024 13:13-0400Respiratory rate18 /minJENNIFER RAAD [facility]10-29-2024 13:13-0400Systolic blood twxhaytb079 mm[Hg]ANN RAAD [facility]10-28-2024 15:36-0400Body wvtxye836.3 Anupama ONEIL Work Phone: [facility] CenterTbahivbtfs00-19-6572 15:36-0400Body mass index (BMI) [Ratio]31.9 kg/m2Shasta Wade PA Work Phone: [facility] CenterYxmcrhfyoe07-01-7958 15:36-0400Body hazhip93.98 kgShasta Wade PA Work Phone: NO[facility] HospitalOmgrcyiytw38-86-6473 15:36-0400Diastolic blood pnwpkuos42 mm[Hg]Shasta Wade PA Work Phone: NO[facility] HospitalUljwuuvzqc04-25-3396 15:36-0400Heart rate81 /min Shasta Wade PA Work Phone: NO[facility] HospitalRddaipvgav31-95-7230 15:36-0400Respiratory rate16 /minShasta Wade PA Work Phone: NO[facility] HospitalWiquektqsj06-47-6104 15:36-4578PoD6% (BldA) [Mass fraction]92 %Shasta Wade PA Work Phone: NO[facility] HospitalTiejkfbwir48-77-9588 15:36-0400Systolic blood vstdanmd935 mm[Hg]Shasta Wade PA Work Phone: [facility] CenterXzyxavblxg08-95-5988 10:56-0400Diastolic blood ilemsrkm51 mm[Hg]Kera Lue [facility]09-25-2024 10:56-0400Heart rate68 /minKathy Lue [facility]09-25-2024 10:56-0400Respiratory rate16 /minKathy Lue [facility] [place] [address]-25-2024 10:56-0400Systolic blood libpwbdk025 mm[Hg]Kera Lue [facility] [place] [address]-24-2024 12:47-0400Blood Pressure LocationKathy Lue [facility] [place] [address]-24-2024 12:47-0400Diastolic blood vzpmuwig87 mm[Hg]Kera Lue [facility]09-24-2024 12:47-0400Heart rate68 /minKathy Lue [facility]09-24-2024 12:47-0400Respiratory rate16 /minKathy Lue [facility]09-24-2024 12:47-0400Systolic blood dxhqjluj332 mm[Hg]Kera Lue [facility]08-29-2024 13:16-0400Diastolic blood iqxjardz74 mm[Hg]ANN RAAD [facility]08-29-2024 13:16-0400Mean blood zoxyhpdm155 mm[Hg]ANN RAAD [facility]08-29-2024 13:16-0400Systolic blood rczvjkud658 mm[Hg]ANN RAAD [facility]08-29-2024 12:51-0400Blood Pressure LocationJENNIFER RAAD [facility]08-29-2024 12:51-0400Diastolic blood zlzgimrh24 mm[Hg]ANN RAAD [facility] [address]29-2024 12:51-0400Heart rate80 /minJENNIFER RAAD [facility] [place] [address]-29-2024 12:51-0400Respiratory rate16 /minJENNHEIDI ROARY [facility]08-29-2024 12:51-0400Systolic blood kwsvkywf056 mm[Hg]ANN FORTE [facility]04-16-2024 11:21-0400Body .26 cmJR Asya Clements Work Phone: [facility]04-16-2024 11:21-0400 Body bjjolv97.52 kgJR Asya Clements Work Phone: [facility]05-10-2023 07:56-0400 Blood Pressure LocationKathy Lue [facility]05-10-2023 07:56-0400Diastolic blood jjufnwri57 mm[Hg]Kera Lue [facility]05-10-2023 07:56-0400Heart rate62 /minKathy Lue [facility]05-10-2023 07:56-0400Systolic blood zsapbxru267 mm[Hg]Kera Lue [facility]06-29-2022 10:13-0400Blood Pressure LocationKathy Lue [facility] 06-29-2022 10:13-0400Diastolic blood statjxnm94 mm[Hg] Kera Lue [facility] 06-29-2022 10:13-0400Heart rate70 /minKathy Lue [facility] 06-29-2022 10:13-0400Respiratory rate16 /minKatyogesh Lue [facility] 06-29-2022 10:13-0400Systolic blood jhraldrg317 mm[Hg] Kera Lue [facility] 04-26-2022 10:56-0400Body ninhtc127.3 cmShawna Flores MD, PhD Work Phone: [facility]04-26-2022 10:56-0400Body exlcef71.88 kgShawna Flores MD, PhD Work Phone: [facility]04-26-2022 10:56-0400Diastolic blood jwweafub06 mm[Hg]Shawna Flores MD, PhD Work Phone: [facility]04-26-2022 10:56-0400Heart rate64 /min Shawna Flores MD, PhD Work Phone: [facility]04-26-2022 10:56-0400Systolic blood tnsovagy345 mm[Hg]Shawna Flores MD, PhD Work Phone: [facility] Encounters Encounter DateEncounter TypeCare ProviderFacilityStart: 05-30-2025 End: 94-07-5173tanvugqjedUGRYKWKClaudy CLEMENTS JRFacility:[facility]: 05-09-2025 End: 36-47-3110xdlblwcgdbVIKWUKCClaudy CLEMENTS JRFacility:[facility]: 04-25-2025 End: 19-79-1906konwjzimmjFKUCGYLClaudy CLEMENTS JRFacility:[facility]: 04-18-2025 End: 68-36-1353sfxbvernzyERIQDNT LEWIS VALONE JRFacility:[facility]: 04-18-2025 End: 06-79-7593nocjrhkvckJUNXYPB LEWIS VALONE JRFacility:[facility]: 04-18-2025 End: 92-32-9452bfwfvcykcwSQKRDRIHenry CLEMENTS JRFacility:[facility]: 04-14-2025 End: 94-43-3623tprryaknxxUCETBBN JIMMY CLEMENTS JRFacility:[facility]: 04-12-2025 End: 82-62-1510mjxriurwfjHUSJMZF LEWIS VALONE [facility]RFacility[facility]: 20-57-0004gucflukvcsHUTJTBA LEWIS VALONE JRFacility[facility]: 03-15-2025 End: 94-72-0441Mkyaeox encounter procedureG Elias Smart MD Work Phone: Radiation OncologyComment on above: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)Start: 03-15-2025 End: 74-99-8742Pwwxsi outpatient visit 25 minutesAdars Samia FLOYD Work Phone: Hematology/OncologyComment on above: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) (Primary Dx); Other fatigueStart: 03-15-2025 End: 39-16-9814rsdupjxwuqDMIVQLD JIMMY CLEMENTS [facility]: 03-14-2025 End: 28-99-1206Jnudzyv encounter procedureShawna Flores MD, PhD Work Phone: EndocrinologyComment on above:Multiple thyroid nodules (Primary Dx); Acquired hypothyroidismStart: 03-14-2025 End: 27-58-3703xrwgqliyiaKMUOICA JIMMY CLEMENTS JRRosacility:[facility]: 02-28-2025 End: 81-31-0293Cofzkmn encounter procedureVincent Estrada APRN.CNP Work Phone: palliative MedicineComment on above:Palliative care by specialist (Primary Dx); Metastatic cancer to bone (HCC); Neoplasm related pain; Chemotherapy-induced nausea; Constipation due to opioid therapy; Lung mass; Chronic obstructive pulmonary disease, unspecified COPD type (HCC); SOB (shortness of breath); Secondary malignant neoplasm of unspecified site (HCC)Start: 02-28-2025 End: 64-21-4358llsslhssoeCTPFAQTClaudy Ruvalcabacility:[facility]: 02-24-2025 End: 88-15-4574fnswujlffcRRUBBHFClaudy CLEMENTS JRFacility:[facility]: 02-21-2025 End: 47-26-9435Txsaolj encounter procedureG Elias Smart MD Work Phone: Radiation OncologyStart: 02-21-2025 End: 54-21-4730Ympficbgm Oncology NoteG Elias Smart MD Work Phone: Radiation OncologyComment on above:Completion Note Start: 02-21-2025 End: 33-46-4825ojqwqswciiDXQJESQClaudy CLEMENST JRFacility:[facility]: 02-20-2025 End: 19-40-2785Agxxjgn encounter procedureG Elias Smart MD Work Phone: Radiation OncologyComment on above: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)Start: 02-13-2025 End: 20-67-3408quheedvswzWBPYPPMHenry CLEMENTS JRFacility:[facility] HospitalStart: 02-10-2025 End: 50-40-9524Rcrzatk encounter procedureJessica [facility] Work Phone: [facility]: 02-10-2025 End: 48-14-5628Onesivwcq encounterCleveland Clinic Union Hospitalailyn [facility] Work Phone: Hematology/OncologyComment on above:Medication Update Start: 02-10-2025 End: 34-38-3981xczfzuxkrvHtfnsjm [facility] Work Phone: [facility] [facility]acyStart: 02-09[facility]2025 End: 32-67-4730gebbhjpacySWZTNEBHenry CLEMENTS JRFacility:[facility]: 02-08-2025 End: 60-79-7459Mrywxux encounter procedureG Elias Smart MD Work Phone: Radiation OncologyComment on above: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)Start: 02-08-2025 End: 75-18-4623uvhqmmifizRLLNLIFHenry CLEMENTS JRFacility:[facility] HospitalStart: 02-08-2025 End: 27-82-6724Ddfkogdxz encounterLashaeailyn JabierBarnesville Hospital Work Phone: [facility] PharmacyComment on above: Drug/Drug Interaction (Lumakras and primidone)Start: 02-06-2025 End: 62-03-6620ezeuhahjizSdudhtcClaudy Clements JR Work Phone: [facility] Work Phone: Start: 02-06-2025 End: 73-15-4167Ezjulta encounter procedureSsophia Foote ZRJK-SAK-P-FPG [facility] [place] Work Phone: Start: 90-53-0257Uwz-patient / Non-visitTifchaseaileen [facility] Neurology Work Phone: Start: 02-03-2025 End: 75-07-7013PanklqQgygk Schmitt [facility] Work Phone: HOSPITAL PHARMACY HB-3Comment on above:Refill Request Start: 02-02-2025 End: 96-92-1022Pufvffjvl Oncology NoteG Elias Smart MD Work Phone: Radiation OncologyComment on above:Simulation Note Treatment PlanningStart: 02-02-2025 End: 48-35-1813Hauufhorp encounterPatricia Gregory RN Work Phone: Hematology/OncologyComment on above:Care Coordination (Future Appointment)Start: 02-02-2025 End: 74-82-8203Meuzwcu evaluation of patient and reportPatricia Gregory RN Work Phone: Hematology/OncologyComment on above:Encounter for education (Primary Dx)Start: 02-02-2025 End: 09-97-4415Zmxyjhu encounter procedureG Elias Smart MD Work Phone: Radiation OncologyComment on above: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 Start: 01-31-2025 End: 53-51-1240F-mail encounter from Bobbi Cordon [facility] Work Phone: [facility] HB-3Start: 01-31-2025 End: 42-06-8635Jwyafyenx encounterRejudy Gregory RN Work Phone: Hematology/OncologyComment on above:Care Coordination (Medication Question)Start: 01-26-2025 End: 20-19-8117Uekqgpcjg encounterG Elias Smart MD Work Phone: Radiation OncologyComment on above:Future Appointment Medication Authorization (Lumakras)Start: 01-26-2025 End: 04-55-2284Tyqtxs outpatient visit 25 minutesAdarsnoah Gracia MD Work Phone: Hematology/OncologyComment on above: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) (Primary Dx); Other fatigueStart: 01-26-2025 End: 88-94-9331tqoknnrqpuWPTEOYT LEWIS VALONE JRFacility:[facility]: 01-25-2025 End: 80-36-5326Qcckknz encounter Milagro Balbuena MD Work Phone: Facial Plastics/ReconstructionComment on above:Facial nerve motor disorder (Primary Dx); Clonic hemifacial spasm, unspecified laterality; Blepharospasm; Facial paralysisStart: 01-25-2025 End: 11-46-6849ymenkygyefWnesv M. LueFacility:EU BellevueStart: 01-24-2025 End: 11-96-5950Kkrboaxbe encounterAdatho Gracia MD Work Phone: Hematology/OncologyComment on above:Lab OrdersStart: 01-23-2025 End: 28-78-6022Lffbrxu evaluation of patient and reportTifcristiana Thakur RN Work Phone: Hematology/OncologyComment on above:Metastatic cancer to bone (HCC) (Primary Dx)Start: 01-23-2025 End: 45-12-2561jjdcxsjeaaHCKISXY LEWIS VALONE JRFacility:[facility]: 74-80-3326gwtimqsttwUZLLGOY JIMMY CLEMENTS [facility]: 01-18-2025 End: 87-42-5583Xuculjytfk hospital visit by physicianArrival Time Radiology Work Phone: Radiology Pet CTComment on above:Metastatic cancer to bone (HCC) [C79.51]Start: 01-05-2025 End: 41-43-1535Ippgtsafk encounterUlisses Baum PA-C Work Phone: Hematology/OncologyStart: 01-04-2025 End: 19-41-9991Hpjzoz outpatient visit 25 minutesAdars Samia FLOYD Work Phone: Hematology/OncologyComment on above: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) (Primary Dx); Metastatic cancer to bone (HCC)Start: 01-04-2025 End: 73-78-5288cjfjnwulguEneve [address] [place] Work Phone: Hematology/OncologyComment on above:Malignant neoplasm of overlapping sites of right lung (HCC) (Primary Dx)Start: 12-26-2024 End: 29-72-7350dimaggdqplOrevmvx Fritz MD Work Phone: Facial Plastics/ReconstructionStart: 12-26-2024 End: 38-67-4155Bvfnuwm encounter procedureElizabeth Balbuena MD Work Phone: Facial Plastics/ReconstructionComment on above:Botox Start: 12-19-2024 End: 30-25-2673Jvstldfon encounterGhislaine Thakur RN Work Phone: Hematology/OncologyComment on above:Care Coordination (Thyroid nodules)Start: 12-14-2024 End: 76-67-3440Zkwnwtwqa encounterMinflako Pooja Isrrael GONZALEZ Work Phone: Cancer Appts MCComment on above:Radiology USStart: 12-14-2024 End: 66-76-0158Hzwodv outpatient visit 40 minutesMinflako Patton Isrrael GONZALEZ Work Phone: Hematology/OncologyComment on above:Malignant neoplasm of overlapping sites of right lung (HCC) (Primary Dx); Metastatic cancer to bone (HCC); Malaise and fatigue; Pain of right upper arm; Swelling of armStart: 12-14-2024 End: 51-55-5955vockocglfqGkyqj [address] [place] Work Phone: Hematology/OncologyComment on above:Malignant neoplasm of overlapping sites of right lung (HCC) (Primary Dx)Start: 11-23-2024 End: 46-27-3647Ngranmt encounter Cm Estrada APRN.CNP Work Phone: palliative MedicineComment on above:Palliative care by specialist (Primary Dx); Constipation due to opioid therapy; Neoplasm related pain; Metastatic cancer to bone (HCC); Lung massStart: 11-23-2024 End: 25-56-2913Wjfklw outpatient visit 25 minutesAdarsh Samia FLOYD Work Phone: Hematology/OncologyComment on above:Malignant neoplasm of overlapping sites of right lung (HCC) (Primary Dx)Start: 11-23-2024 End: 97-41-1271xwczyduxpuIdvru 5 [place] Work Phone: Hematology/OncologyComment on above:Malignant neoplasm of overlapping sites of right lung (HCC) (Primary Dx)Start: 11-22-2024 End: 58-81-6073Aripnc Alcides ONEIL Work Phone: aNA GUSTABOUEStart: 11-22-2024 End: 43-37-9057Xuhqrcshahzad ONEIL Work Phone: aNA SHARMAINEEVUEStart: 11-22-2024 End: 49-59-8375Hglqhr outpatient visit 25 minutesShasta ONEIL Work Phone: ana BELLEVUEComment on above:AVM (arteriovenous malformation) (Primary Dx); Migraine without aura and without status migrainosus, not intractable (CMS/HCC); Trigeminal neuralgia (CMS/HCC); History of stroke; Anxiety disorder, unspecified type; TremorStart: 11-22-2024 End: 32-76-7078quxhtymycmTPZG HILLNot AvailableStart: 11-16-2024 End: 51-42-0813Obhpggbim encounterAdatho Gracia MD Work Phone: Hematology/OncologyComment on above:Lab OrdersStart: 33-85-9021pfktyupqccQIMAZGV LEWIS VALONE JRFacility:[facility] Start: 11-15-2024 End: 47-02-4419Qstqyyntsv hospital visit by physicianArrival Time Radiology Work Phone: Radiology Pet CTComment on above:Metastatic cancer to bone (HCC) [C79.51]Start: 11-08-2024 End: 45-92-2138Frsyokf encounter Meghan Clements JR Work Phone: [facility]-Ultrasound [facility] [place] Work Phone: Start: 11-08-2024 End: 08-70-5439bjtkixyjojCugfmfjClaudy Clements JR Work Phone: [facility] Work Phone: Start: 11-02-2024 End: 67-09-4561Wranulikk encounterAdatho Gracia MD Work Phone: radiation OncologyComment on above:OrdersStart: 11-02-2024 End: 98-44-4772Egtycf outpatient visit 25 minutesAdatho Gracia MD Work Phone: Hematology/OncologyComment on above:Metastatic cancer to bone (HCC) (Primary Dx); Malignant neoplasm of overlapping sites of right lung (HCC)Start: 11-02-2024 End: 05-21-2037xjmungvjinAjkhk [address] [place] Work Phone: Hematology/OncologyComment on above:Malignant neoplasm of overlapping sites of right lung (HCC) (Primary Dx)Start: 10-12-2024 End: 60-27-2397Nswtkb outpatient visit 15 Manolo Gomez APRN.CNP Work Phone: Hematology/OncologyComment on above:Metastatic cancer to bone (HCC) (Primary Dx); Malignant neoplasm of overlapping sites of right lung (HCC); Encounter for antineoplastic chemotherapy; Encounter for immunotherapyStart: 10-12-2024 End: 20-66-7655Qjnqco WorkLori Ravinder WHematology/OncologyComment on above: Malignant neoplasm of overlapping sites of right lung (HCC) (Primary Dx)Start: 10-10-2024 End: 03-07-2443Cyoxax outpatient visit 25 minutesLizkonrad Mauro ONEIL Work Phone: aNA BELLEVUEComment on above:AVM (arteriovenous malformation) (Primary Dx); Hallucination, hypnopompic; History of stroke; Migraine without aura and without status migrainosus, not intractable (CMS/HCC); Trigeminal neuralgia (CMS/HCC); Anxiety disorder, unspecified type; TremorStart: 10-10-2024 End: 85-93-7899hszkdlujdwEJZJ HILLNot AvailableStart: 09-30-2024 End: 67-31-3062Lwehggept encounterKimbsujata Estrada APRN.CNP Work Phone: palliative MedicineComment on above:Patient Update Start: 09-29-2024 End: 69-10-9943Xjndgd WorkLori Ravinder PRESLEYematology/OncologyStart: 09-28-2024 End: 09-87-5669prwezpnxdqHdtpa M. LueFacility:EU BellevueStart: 09-27-2024 End: 46-56-1602Kgrpfldds encounterAnn-Marie Gomez APRN.CNP Work Phone: Hematology/OncologyComment on above:Lab OrdersStart: 2024 End: 77-45-2018ywdctgqpcwJUZZCEB LEWIS VALONE JRFacility:[facility]art: 2024 End: 66-42-5107Vptmsjd encounter Cm Estrada APRN.CNP Work Phone: palliative MedicineComment on above:Palliative care by specialist (Primary Dx); Metastatic cancer to bone (HCC); Constipation due to opioid therapy; Lung mass; Neoplasm related pain; Anorexia; Chronic obstructive pulmonary disease, unspecified COPD type (HCC); SOB (shortness of breath)Start: 09-22-2024 End: 83-95-1770Rpbdsp outpatient visit 25 minutesJatamara Gomez APRN.CNP Work Phone: Hematology/OncologyComment on above:Lung mass (Primary Dx); Metastatic cancer to bone (HCC); Malignant neoplasm of overlapping sites of right lung (HCC); Chemotherapy induced diarrhea; Chemotherapy-induced fatigueStart: 09-22-2024 End: 96-45-6482eakwvjtrsrSZMUQUD LEWIS VALONE JRFacility:[facility]art: 09-21-2024 End: 00-05-9973Nkwvjbrjk encounterAnn-Marie Gomez APRN.CNP Work Phone: Cancer Appts MCComment on above:No ShowStart: 09-19-2024 End: 10-46-1077Ohxcscdtd encounterGhislaine Thakur RN Work Phone: Hematology/OncologyComment on above:Care Coordination (C1D1 treatment follow up call)Care Coordination (Rash, shortness of breath) Start: 09-14-2024 End: 78-37-3821Nzuufl outpatient visit 25 minutesAdarsh Samia FLOYD Work Phone: Hematology/OncologyComment on above:Lung mass (Primary Dx); Metastatic cancer to bone (HCC)Start: 09-14-2024 End: 66-00-9679zwzyzzragaZmtxt [address] [place] Work Phone: Hematology/OncologyComment on above:Malignant neoplasm of overlapping sites of right lung (HCC) (Primary Dx)Start: 09-13-2024 End: 51-36-3608Zojjjfbpu encounterTifcristiana Thakur RN Work Phone: Hematology/OncologyComment on above:Care Coordination (Hospital d/c follow up call)Start: 13-49-9599Kmr-patient / Non-visitCharaiden Clements JR Work Phone: [facility] Work Phone: Start: 68-29-2910Kgl-patient / Non-visitCharaiden Clements JR Work Phone: [facility] Work Phone: Start: 09-07-2024 End: 62-86-7105Pjrajphime and management of inpatientCharaiden Clements JR Work Phone: [facility] [place] [facility] Work Phone: Start: 09-06-2024 End: 41-46-7400Jnvsokprs encounterSenmanuel Bryson RNMobile ServicesComment on above:Care CoordinationCare Coordination (Clinical update)Start: 09-05-2024 End: 53-86-3286Huwuuehev encounterFinancial Navigator Ian Work Phone: Hematology/OncologyComment on above:Benefits Investigation (Good Day [place],//I am your Financial Navigator, Paulina. I wanted to reach out and introduce myself. I welcome the opportunity to meet with you as I can answer questions relatedto your health plan and any expected out of pocket costs while you are in treatment.//You will alsofind a survey attached to this message that can help me better serve your financial needs. You can c omplete this at your earliest convenience. Please feel free to stop in or call [phone] for anyquestions you may have. I )Start: 09-04-2024 End: 11-04-8615Eidbxliuo encounterArmando Veras MD Work Phone: Hematology/OncologyStart: 09-01-2024 End: 09-67-7814Kvzbjqm encounter procedureCharaiden Clements JR Work Phone: [facility]-MRI [facility] [place] Work Phone: Start: 09-01-2024 End: 70-02-2282ppjpbeyfitZvrbhfmClaudy Clements JR Work Phone: [facility] Work Phone: Start: 08-31-2024 End: 12-16-0933pjsdqbpmkdXxivrktah L Mitchell RNMobile ServicesComment on above: Palliative Medicine Introduction and Contact NumbersStart: 08-31-2024 End: 74-08-8601O-mail encounter from Radha Miles ServicesStart: 08-31-2024 End: 79-27-3345Qrwxyyn encounter procedureSgabo Schreiber MD Work Phone: Radiation OncologyComment on above: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)Start: 08-31-2024 End: 24-24-4296Pzzbxheou Oncology NoteSgabo Schreiber MD Work Phone: Radiation OncologyComment on above:Completion Note Start: 08-31-2024 End: 11-66-3672Woagedvwn encounterSenmanuel Starkbilkonrad ServicesComment on above:Medication ProblemStart: 08-30-2024 End: 81-56-5934japfiufmwvGNZPPMQClaudy CLEMENTS JRFacility:[facility]art: 08-30-2024 End: 91-97-6652Borjtkq evaluation of patient and reportTifcristiana Thakur RN Work Phone: Hematology/OncologyComment on above:Malignant neoplasm of overlapping sites of right lung (HCC) (Primary Dx)Start: 08-30-2024 End: 12-02-5196Mvuavrppw encounterTifcristiana Thakur RN Work Phone: Hematology/OncologyComment on above:Care Coordination (pain)Care Coordination (Treatment prep)Start: 08-29-2024 End: 50-85-0845eagdcnbuonDCFLZWXClaudy CLEMENTS JRFacility:[facility]art: 08-27-2024 End: 29-61-6548Dltzpa Viktor Hernández [facility] Work Phone: Hematology/OncologyStart: 08-26-2024 End: 35-14-8358Ulguwi outpatient visit 40 minutesAdarsh Samia FLOYD Work Phone: Hematology/OncologyComment on above:Malignant neoplasm of overlapping sites of right lung (HCC); Anxiety disorder, unspecified typeStart: 08-26-2024 End: 31-38-5245Prsqegk encounter procedureVincent Estrada APRN.CNP Work Phone: palliative MedicineComment on above:Palliative care by specialist (Primary Dx); Lung mass; Metastatic cancer to bone (HCC); Neoplasm related pain; Constipation due to opioid therapy; AnorexiaStart: 08-26-2024 End: 20-99-8568bufvfgopufNUECIDI LEWIS VALONE JRFacility:[facility]art: 08-25-2024 End: 54-17-6106nqjnjdbhhgQCKVGWTHenry Ruvalcabacility:[facility]tart: 08-24-2024 End: 96-27-3789iwpdurgwilKqhkdq E Graves RNRadiation OncologyComment on above: Patient EducationStart: 08-24-2024 End: 83-40-3938Lalweaq encounter procedureSgabo Schreiber MD Work Phone: Radiation OncologyComment on above: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); 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)Start: 08-24-2024 End: 98-53-8951Ysetwdlui Oncology NoteSgabo Schreiber MD Work Phone: Radiation OncologyComment on above:Simulation Note Treatment PlanningStart: 08-24-2024 End: 21-67-8300Zogidaxle encounterSgabo Schreiber MD Work Phone: Radiation OncologyComment on above:AppointmentStart: 08-23-2024 End: 62-05-7825Dnawqds encounter procedureSarabjit Crowley DO Work Phone: Hematology/OncologyStart: 08-23-2024 End: 30-92-4861ahxogxrtzmMrivw Delasos DO Work Phone: Hematology/OncologyComment on above:Malignant neoplasm of overlapping sites of right lung (HCC) (Primary Dx)Start: 08-23-2024 End: 67-47-7600Mjiqkt outpatient visit 25 minutesSarabjit Sharma MD Work Phone: OrthopaedicsComment on above:Metastatic cancer to bone (HCC) (Primary Dx); Lytic bone lesions on xray; Lung massStart: 08-22-2024 End: 64-94-9394jrqfiqexydLNONTLSHenry CLEMENTS JRFacility:[facility]: 08-22-2024 End: 99-02-8313Uofdvsv encounter procedureYasmeen Narayan MD Work Phone: Radiation OncologyComment on above: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); 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)Start: 08-19-2024 End: 37-84-1906hgylzpfjpvCkpbumTristan Barclay PA-C Work Phone: OrthopaedicsComment on above:Metastatic cancer to bone (HCC) (Primary Dx); Lung mass; Lytic bone lesions on xrayStart: 08-19-2024 End: 17-42-7141Rfzbozbivukg consultation with Rupert Barclay PA-C Work Phone: OrthopaedicsStart: 08-11-2024 End: 73-14-4690CusvevFedham L Mareth PA-C Work Phone: OrthopaedicsComment on above:Refill RequestStart: 08-10-2024 End: 40-91-5677gjtdmyixppXRYQOEOHenry CLEMENTS JRFacility:[facility]: 08-09-2024 End: 04-00-2204Paxtlpy encounter procedureAsya Clements JR Work Phone: [facility]-Ultrasound [facility] [place] Work Phone: Start: 08-09-2024 End: 78-07-8189xdqmhcloquByraehp L Starr MUNROE Work Phone: [facility] Work Phone: Start: 08-08-2024 End: 70-12-8845Oxammdr encounter procedureAsya Starr MUNROE Work Phone: [facility]-Nuc Med [facility] [place] Work Phone: Start: 08-08-2024 End: 25-59-6495eiohgkfczoSnvoeng L Starr MUNROE Work Phone: [facility] Work Phone: Start: 07-29-2024 End: 49-47-6121zmfxttfcfmBOVVACNHenry CLEMENTS JRFacility:[facility]: 07-29-2024 End: 74-15-0273Znsrmxtpb encounterDarian Barclay PA-C Work Phone: OrthopaedicsComment on above:Biopsy Request; Biopsy RequestStart: 07-29-2024 End: 27-36-1799Dbueuggavi hospital visit by physicianOswaldo Main C41YxywxtmzkCfkodjb on above:Pain in right hip [M25.551]Start: 07-29-2024 End: 26-28-6463xbvuvwkhywLIVXDRJHenry CLEMENTS JRFacility:[facility]: 07-29-2024 End: 94-32-7401owewcgzzyxXOAMODWHenry CLEMENTS JRFacility:[facility]: 07-29-2024 End: 91-20-2908Mzezuia encounter procedureDarian Barclay PA-C Work Phone: OrthopaedicsComment on above:Pain in right hip (Primary Dx); Lytic bone lesions on xray; Thyroid nodule; Thyroid nodule greater than or equal to 1 cm in diameter incidentally noted on imaging studyStart: 07-17-2024 End: 66-58-7572fqrxhicexsEflctimAdia Jacobson MD Work Phone: OrthopaedicsStart: 07-17-2024 End: 83-58-6210Icejcet encounter Tanika Jacobson MD Work Phone: OrthopaedicsComment on above:Referral appointment Start: 07-07-2024 End: 91-28-7303Ahibps outpatient new 45 minutesPaulina Jacobson MD Work Phone: OrthopaedicsComment on above:Chronic right shoulder pain (Primary Dx); Tendinopathy of right rotator cuffStart: 07-07-2024 End: 09-03-0595Azmncuttwx hospital visit by physicianOswaldo Butler Work Phone: RadiologyComment on above:Right shoulder pain, unspecified chronicity [M25.511]Start: 07-07-2024 End: 74-18-8342oitkunzriyBydv Chuck RT(R)RadiologyComment on above:Radiology XRStart: 07-07-2024 End: 25-98-1888Podbzir encounter procedureSara Chuck RT(R)RadiologyStart: 07-06-2024 End: 47-12-7820Iabozr OnlyPaulina Jacobson MD Work Phone: OrthopaedicsComment on above:Right shoulder pain, unspecified chronicity (Primary Dx)Pain (Primary Dx)appointment 07/07/24Start: 06-23-2024 End: 21-19-9335waqfcfcdpyIqjey M. LueFacility:EU [place]kyStart: 06-23-2024 End: 64-34-0081Jrgrffg encounter Kim Reid [facility] Start: 06-07-2024 End: 44-82-0094Sghziggtc to same day surgery Natalie Clements JR Work Phone: [facility] CenterStart: 06-07-2024 End: 85-00-8845xfarkslsfhVtinnpi L Valone JR Work Phone: [facility] Work Phone: Start: 06-07-2024 End: 89-36-8778eppdtxpfumMyesi M. Nikolayacility:CD:[id number]: 05-31-2024 End: 87-08-1905Jjtervk encounter procedureAsya Clements JR Work Phone: [facility]ik-Cczenuuu Testing Work Phone: Start: 05-31-2024 End: 04-01-0816rdxttkjaibEwwzvka L Valone JR Work Phone: [facility] Work Phone: Start: 96-83-8434Hsjhnyeco for preprocedural laboratory examinationKera aZvaleta [facility] Phys[facility] GroupStart: 05-27-2024 End: 80-58-1944Qfkgvd consultation new/estab patient 61 Zuleyka Griffin MD Work Phone: [facility] CenterComment on above:Preoperative cardiovascular examination; Mixed hyperlipidemia; Acquired hypothyroidism; Tremor; BMI 31.0-31.9,adult; Former smokerStart: 05-27-2024 End: 54-52-1228Nzhkgaw encounter statusЕлена Griffin MD Work Phone: [facility]Start: 05-27-2024 End: 98-65-9944pgnkewqyqbMJQKBXSelect [facility]ty [facility] AmbulatoryStart: 05-27-2024 End: 73-91-2066Cbjmnmwio for preprocedural cardiovascular examinationGESelect Specialty Hospital [facility] AmbulatoryStart: 05-17-2024 End: 48-02-6404muoxxblbafIQWHPWJQ E PERRYFacility:EU [place]vueStart: 05-17-2024 End: 00-30-5175Ynzeoum encounter procedureJENNIFER E RAAD [facility] [place] start: 05-16-2024 End: 87-17-9844Hcdwar outpatient visit 15 minutesShasta Mauro ONEIL Work Phone: n[facility] ROUTEComment on above:AVM (arteriovenous malformation) (Primary Dx); Hallucination, hypnopompic; History of stroke; Migraine without aura and without status migrainosus, not intractable (CMS/HCC); Trigeminal neuralgia (CMS/HCC); Anxiety disorder, unspecified typeStart: 05-16-2024 End: 45-09-1727kemkpmyokuHPSL HILLNot AvailableStart: 05-16-2024 End: 51-99-1205Lxwtka Alcides ONEIL Work Phone: [facility] ROUTEStart: 05-16-2024 End: 47-55-7167Bjwusp Alcides ONEIL Work Phone: noms [facility] ROUTEStart: 05-11-2024 End: 30-95-8474qbnhreouvtKllvf M. LueFacility:EU [place]Start: 05-11-2024 End: 19-91-1491Hvr-SiteKera Reid [facility] Start: 30-74-3803Tmu-patient / Non-visitCharles Starr Work Phone: [facility] OutPt Work Phone: Start: 04-13-2024 End: 00-75-1360fikujpgivnIwwxa M. LueFacility:EU [place]vueStart: 04-13-2024 End: 42-67-0916Cqtdftd encounter procedureKera Reid [facility] start: 04-08-2024 End: 98-57-9813urxgrxorlpOhnix M. LueFacility:EU [place]kyStart: 04-08-2024 End: 57-90-6755Xbqammx encounter procedureKera Reid [facility] Chio Start: 50-46-6088crzpnkgyntBhdzq M. LueFacility:EU [place]vueStart: 03-30-2024 End: 05-87-9940Zzwcpsm encounter Milagro Balbuena MD Work Phone: Facial Plastics/ReconstructionComment on above:Facial paralysis (Primary Dx); Facial nerve motor disorderStart: 03-17-2024 End: 62-12-0325tdchypkmkeMIJMLZMU E PERRYFacility:EU [place]vueStart: 03-17-2024 End: 61-08-9067Xxnprco encounter procedureJENNIFER E RAAD [facility] Jorge start: 02-25-2024 End: 55-99-3194vvnoofkhoeOLVG MAURONot AvailableStart: 02-02-2024 End: 01-78-3034hlmtpnqjzuBSOM MAURONot AvailableStart: 01-28-2024 End: 11-40-9654wrpntmyilyVROKPZU A FELTERNot AvailableStart: 01-11-2024 End: 06-11-3057potqhmijdoPQTQXWMX ANTHONYBESTENNot AvailableStart: 12-28-2023 End: 79-93-6467rfoudcigxhOZUP HILLNot AvailableStart: 12-10-2023 End: 90-36-3001gdiyoicgbzBNEK HILLNot AvailableStart: 11-03-2023 End: 49-75-2678lyvjvcfttvGP Charles L Valone Work Phone: [facility] Work Phone: Start: 11-03-2023 End: 22-20-7924Iqicerl encounter procedureJR Asya Clements Work Phone: [facility]-MRI [facility] [place] Work Phone: Start: 08-24-2023 End: 94-83-2965zczjluecliMS Asya Clements Work Phone: [facility] Work Phone: Start: 08-24-2023 End: 36-47-4331Iqxsyfo encounter procedureJSusie Asya Clements Work Phone: [facility]-MRI [facility] [place] Work Phone: Start: 06-24-2023 End: 98-80-6397Nnjhzoq encounter procedureKera Reid [facility] start: 04-10-2023 End: 88-23-9248Mwkbmid encounter procedureAdina Rosales MD Work Phone: otolaryngologyComment on above:Facial paralysis (Primary Dx)Start: 11-26-2022 End: 44-33-2685Vngxlqt encounter procedureKera Reid [facility] start: 11-12-2022 End: 68-08-3411itknnxsjmhFX ARMANDO HOLLINGSWORTHFacility:F0Pclbe: 02-90-7843brxkncaebi Elizabeth Balbuena MD Work Phone: rJESUS CAMILO FHCStart: 43-37-3577Osmrdjs encounter Milagro Balbuena MD Work Phone: Facial Plastics/ReconstructionComment on above:Botox AppointmentStart: 07-23-2022 End: 85-07-6970Drojply encounter Kim Reid [facility] start: 07-08-2022 End: 59-55-9902pkjacsrufqWVLCN M LUE .Facility:I2Dyteh: 06-05-2022 End: 08-57-7876veikrixahnAB ASYA VALONEFacility:S7Vmlaj: 05-16-2022 End: 55-83-1843Msnlvap encounter procedureElizabeth Balbuena MD Work Phone: Facial Plastics/ReconstructionComment on above:Facial nerve motor disorder (Primary Dx)Start: 02-27-2022 End: 58-12-2548cthhzomplaSWVUHFNJ CULLENFacility:K7Vazpa: 25-59-4874ednhcvmjjaKK ASYA VALONEFacility:B3Etief: 01-15-2022 End: 86-65-7261Aypkbje encounter procedureKera Reid [facility] start: 12-25-2021 End: 19-72-8486avslngiywaHORKM Rafiq HIGHLANDERFacility:X4Whawz: 12-13-2021 End: 74-38-0740Bikndww encounter procedureElizabeth Balbuena MD Work Phone: Facial Plastics/ReconstructionComment on above:Facial nerve spasm (Primary Dx); Facial nerve motor disorderStart: 23-97-1293Demurxozc encounterShawna Flores MD, PhD Work Phone: EndocrinologyComment on above:ResultsStart: 11-12-2021 End: 33-91-4289Nncsdfz encounter procedureShawna Flores MD, PhD Work Phone: EndocrinologyComment on above:Multiple thyroid nodules (Primary Dx); Obesity, Class I, BMI 30-34.9; Vasomotor symptoms due to menopauseStart: 11-23-2020 End: 46-14-5960Fdnvdmq encounter Meghan Clements Work Phone: [phone]-[facility]olx[facility] Procedures DateProcedureProcedure DetailPerforming ClinicianStart: 93-63-6998Fgbpzm-up visitFollow Roxie WHITEHEADEPUREDDYStart: 88-32-7018HZB of Ad Clements JR Work Phone: Start: 03-62-7805Jiq imaging ct attenuation skull base mid-thighIsaac Gracia MD Work Phone: start: 93-17-0516Hev imaging ct attenuation skull base mid-thighAdatho Gracia MD Work Phone: start: 09-07-3132Piwb bld gluc mntr dev cleared fda spec home useCcf ProviderStart: 75-10-3509Qenehe scan of lower limb veinsCharaiden Clements JR Work Phone: Start: 10-90-9713Xuj seq analys tani org/hemtolmphoid willem 51/> genAdatho Gracia MD Work Phone: start: 59-14-2223Uqqqwsfu identified in Blood by CultureAsya Clements JR Work Phone: Start: 45-99-1921Nacdm cultureAsya Tranbrandy Work Phone: Start: 53-03-6969Zsikgqhtdah Panel (PCR)Asya Clements JR Work Phone: Start: 92-05-4352Vwxpbjvt screenCharaiden TranoneComment on above:Order Comment: Comment add Comment addResult Comment: PERFORMED BY: [place] [address] [place] [address] PATHOLOGIST BRIEFCASE SEWER PETER COFFEY M.D.Start: 78-92-5967Qebmlmpn tomography of abdomen and pelvis with contrastAsya Tranbrandy Work Phone: Start: 26-86-5866IZ of thorax with contrastIvetteraiden Clements JR Work Phone: Start: 62-77-6007Znwypebi identified in Blood by CultureAsya Clements JR Work Phone: Start: 65-83-5199Jpwkr nucleic acid assayIvettemanny Clements JR Work Phone: Start: 30-93-2580SVO of headCharaiden Jeannabrandy MUNROE Work Phone: Start: 98-46-7587Yhg seq analys tani org/hemtolmphoid willem 51/> genLukas Delasos DO Work Phone: Start: 68-00-0354QF scan of thyroidAsya Clements JR Work Phone: Start: 73-94-0125ZP bone scan whole bodyAsya Clements JR Work Phone: Start: 38-91-2503Foaidoha tomography of abdomen and pelvis with contrastAsya Clements JR Work Phone: Start: 72-78-9201CF of thorax with contrastAsya Clements JR Work Phone: Start: 30-01-9045Cuibz hip unilateral with pelvis 2-3 viewsDarian Barclay PA-C Work Phone: Start: 39-07-1961Ggxrdtfzqob removal of ureteric stent Kera Reid Start: 91-81-1843UttscjyewnHejovrr Valone JR Work Phone: Start: 82-45-3693Aqa routine ecg w/least 12 lds w/i&r Елена Griffin MD Work Phone: Start: 84-71-3936EOA of headJR Asya Clements Work Phone: Start: 46-24-9633CimgoklrlgwZmeu Hill PA Work Phone: Start: 25-32-8494Yuattfcqk mammography of bilateral breastsCharles Starr Work Phone: Start: 81-29-0971Engslwfjb on brainKathy Lukonrad Ankle region structure (body structure)Kera Lue Procedure on eyeKathy Nikolaye Plan of Treatment DateCare ActivityDetailAuthorStart: 54-70-8115QPE High Risk: (Elderly (60+) or Population) (1 - 1-dose 75+ series)RSV High Risk: (Elderly (60+) or Population) (1 - 1-dose 75+ series)[facility] Start: 90-94-1791GAW Vaccine (1 - 1-dose 75+ series)RSV Vaccine (1 - 1-dose 75+ series)[facility]: 42-51-4768Hjbdjdht ScreeningDiabetes Screening [facility]: 24-54-7561Uvxbqlhi ScreeningDiabetes ScreeningMercy Health – [facility] Hospitaltart: 02-56-0970Ulcprcgx ScreeningDiabetes ScreeningProm[facility]ica [facility] Start: 40-60-1812Kbrocaab ScreeningDiabetes ScreeningMercy Health – The Jewish Hospitaltart: 28-91-8753Pbbhudzu ScreeningDiabetes ScreeningMercy Health – The Jewish Hospitaltart: 11-03-2027 Diabetes ScreeningDiabetes ScreeningMercy Health – The Jewish Hospitaltart: 02-70-0349Rmyytgbn ScreeningDiabetes ScreeningMercy Health – The Jewish Hospitaltart: 48-18-0962Ltujanus Screening Diabetes ScreeningMercy Health – The Jewish Hospitaltart: 12-98-9992Pkszonzg ScreeningDiabetes ScreeningMercy Health – The Jewish Hospitaltart: 68-83-8037Sslrpcdn ScreeningDiabetes Screening [facility]: 71-98-1760Okckfzcuu for malignant neoplasm of colon [facility]Start: 09-[facility]2025 End: 54-58-7099Ghtgfrx encounter tspcudumk54/03/2026 1:40 PM EST Office Visit Endocrinology [address], [place] [id number] Shawna Flores MD, PhD [address] [place] [address] Return in about 6 months (around 09/14/2025).Endocrinology Comment on above:Return in about 6 months (around 09/14/2025).Start: 05-30-2025 End: 94-02-8480Fvktbtp encounter bdeztyspa31/11/2025 10:30 AM EST Office Visit Palliative Medicine [address] [place] [address] [place] [address] Vincent Estrada, SKIVER UPPERS OR LININGS.KNIFER UP [address] [place] [address] 3 month follow upPalliative MedicineComment on above: 3 month follow upStart: 04-13-2025 End: 99-92-4243Fyufwrw encounter lrgdsncob71/25/2025 1:00 PM EDT Appointment Radiology [address] [place], [place] [id number] Multiple thyroid nodules [E04.2]RadiologyComment on above:Multiple thyroid nodules [E04.2]Start: 04-12-2025 End: 78-23-1608NMD W Auto Differential panel - BloodCOMPLETE BLOOD COUNT AND DIFFERENTIAL Lab Routine 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) Expected: 04/12/2025 (Approximate), Expires: 07/12/2025[facility] ClinicComment on above: Expected: 04/12/2025 (Approximate), Expires: 07/12/2025Start: 04-12-2025 End: 00-06-6644Dpfnlrxyuiywi metabolic 2000 panel - Serum or PlasmaCOMPREHENSIVE METABOLIC PANEL Lab Routine 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) Expected: 04/12/2025 (Approximate), Expires: 07/12/2025[place] ClinicComment on above:Expected: 04/12/2025 (Approximate), Expires: 07/12/2025Start: 04-12-2025 End: 40-75-9075Mqynropfz [Mass/volume] in Serum or PlasmaMAGNESIUM Lab Routine 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) Expected: 04/12/2025 (Approximate), Expires: 07/12/2025[facility] ClinicComment on above:Expected: 04/12/2025 (Approximate), Expires: 07/12/2025Start: 04-12-2025 End: 84-14-1075Khqlaytcbuo [Units/volume] in Serum or PlasmaTHYROID STIMULATING HORMONE Lab Routine 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) Other fatigue Exp ected: 04/12/2025 (Approximate), Expires: 07/12/2025[place] ClinicComment on above:Expected: 04/12/2025 (Approximate), Expires: 07/12/2025Start: 04-12-2025 End: 18-87-6520Wxpfot-up egarzdzqv92/24/2025 10:20 AM EDT Visit (SP) Office Hematology/Oncology [address] [place] [address] Isaac Gracia MD [address] [place] [address] 4 week follow upHematology/OncologyComment on above:4 week follow upStart: 04-12-2025 End: 74-63-0054zkssqxvnle20/24/2025 9:45 AM EDT Results Only [facility] [address] [facility] [place] [address] labs before Flanagan apptNortHealthSource Saginaw LaboratoryComment on above:labs before Flanagan apptStart: 04-07-2025 End: 87-03-2296Hghplzw encounter procedureRadiology Pet CTComment on above:Pet scanPLEASE VERIFY PATIENTS ADDRESS AND PHONE NUMBER - PT HAS RETURNED MAIL Start: 04-05-2025 End: 84-23-6869IKK+CT Guidance for localization of tumor of Skull base to mid-thigh-- W 18F-FDG IVNM PET/CT SKULL-THIGH SUBSEQUENT Radiology Routine 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) Expected: 04/05/2025 (Approximate), Expires: 04/14/2026[facility] Work Phone: Comment on above:Expected: 04/05/2025 (Approximate), Expires: 04/14/2026Start: 78-23-8057Mrobnwzbi [facility]Start: 03-15-2025 End: 28-38-1154Doyyil-up encounterHematology/OncologyComment on above:3 week Follow up / GUZMAN appt today at 10:15amStart: 03-15-2025 End: 54-21-1624Awanqnv encounter procedureRadiation OncologyComment on above:3 week follow upPossible lab draw per staff messageStart: 03-14-2025 End: 14-92-2674Nwzlljjmhbw [Units/volume] in Serum or PlasmaTHYROID STIMULATING HORMONE Lab Routine Acquired hypothyroidism Expected: 03/14/2025, Expires: 06/13[facility] Work Phone: Comment on above:Expected: 03/14/2025, Expires: 06/13/2025Start: 03-14-2025 End: 48-53-9507Izrbcuvdd (T4) free [Mass/volume] in Serum or PlasmaT4 FREE/FREE THYROXINE Lab Routine Acquired hypothyroidism Expected: 03/14/2025, Expires: 06/13/2025[facility]HealthComment on above:Expected: 03/14/2025, Expires: 06/13/2025Start: 03-14-2025 End: 32-65-3019Ikwbvfo encounter yyaxhvbox37/26/2025 1:00 PM EDT Office Visit Endocrinology [address], [place] [phone] Shawna Flores MD, PhD [address] [place], [place] [phone] Would like to have thyroid nodules checked for cancer. I have been screened via [employer] at my primary doctor. I need further care now than what he can offer. - ptEndocrinologyComment on above:Would like to have thyroid nodules checked for cancer. I have been screened via [employer] at my primary doctor. I need further care now than what he can offer. - ptStart: 02-28-2025 End: 00-10-8762Mhjevou encounter rdvifpzna31/12/2025 11:00 AM EDT Office Visit Palliative Medicine [address] [place] [address] Vincent Estrada, SKIVER UPPERS OR LININGS.KNIFER UP [address] [place] [address] 3 month follow upPalliative MedicineComment on above: 3 month follow upStart: 02-24-2025 End: 85-48-0435Docolz-up tfpzoeugy01/08/2025 2:40 PM EDT Visit (SP) Office Hematology/Oncology [address] [place], [place] [phone] Isaac Gracia MD [address] [place] [address] 2 week follow upHematology/OncologyComment on above:2 week follow upStart: 02-24-2025 End: 29-26-7029Eqkexpk encounter nfjotvghm51/08/2025 2:15 PM EDT Office Visit [facility] [address] [place] [address] 2 week follow upNortHealthSource Saginaw LaboratoryComment on above:2 week follow upStart: 02-22-2025 End: 54-32-5568Dphariv encounter /06/2025 11:30 AM EDT Office Visit Palliative Medicine [address] [place] [address] Vincent Estrada, SKIVER UPPERS OR LININGS.KNIFER UP [address] [place] [address] 3 month follow upPalliative MedicineComment on above: 3 month follow upStart: 02-21-2025 End: 23-47-1378Bymbuqb encounter ujbwdqwbn61/05/2025 8:45 AM EDT Appointment Radiation Oncology [address] [place] [address] Shoulder/neckRadiation OncologyComment on above:Shoulder/neckStart: 02-20-2025 End: 75-77-5555Syoxkwf encounter procedureRadiation OncologyComment on above: Shoulder/neckLocation: SA-ON TREATMENT REVStart: 02-17-2025 End: 11-75-9810Vhycuac encounter lutngjdds91/01/2025 9:30 AM EDT Appointment Radiation Oncology [address] [place] [address] Shoulder/neckRadiation OncologyComment on above:Shoulder/neckStart: 02-16-2025 End: 11-26-9051Fmwqwvw encounter epbhowpab99/31/2025 9:30 AM EDT Appointment Radiation Oncology [address] [place] [address] Shoulder/neckRadiation OncologyComment on above:Shoulder/neckStart: 02-15-2025 End: 47-34-8861Yhspwvc encounter zjgcijqdh22/30/2025 8:45 AM EDT Appointment Radiation Oncology [address] [place] [address] Shoulder/neckRadiation OncologyComment on above:Shoulder/neckStart: 02-14-2025 End: 01-69-1442Ojqdrof encounter wlcjmnouh26/29/2025 9:15 AM EDT Appointment Radiation Oncology [address] [place] [address] Shoulder/neckRadiation OncologyComment on above:Shoulder/neckStart: 02-13-2025 End: 35-36-9899Shozccs encounter procedureRadiation OncologyComment on above: Shoulder/neckLocation: SA-ON TREATMENT REVStart: 02-09-2025 End: 65-80-2818Pyjxfe-up pisldiyku74/24/2025 3:00 PM EDT Visit (SP) Office Hematology/Oncology [address] [place], [place] [phone] Isaac Gracia MD [address] [place] [address] 2 week follow upHematology/OncologyComment on above:2 week follow upStart: 02-09-2025 End: 47-91-9792Dxamibe encounter hmbcoejjx55/24/2025 2:45 PM EDT Office Visit [facility] [address] 2 week follow upNortHealthSource Saginaw LaboratoryComment on above:2 week follow upStart: 02-09-2025 End: 02-03-7672TSQ W Auto Differential panel - BloodCOMPLETE BLOOD COUNT AND DIFFERENTIAL Lab Routine 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) Expected: 02/09/2025 (Approximate), Expires: 05/11/2025[place] ClinicComment on above: Expected: 02/09/2025 (Approximate), Expires: 05/11/2025Start: 02-09-2025 End: 41-49-2105Ycuxgqujgoavt metabolic 2000 panel - Serum or PlasmaCOMPREHENSIVE METABOLIC PANEL Lab Routine 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) Expected: 02/09/2025 (Approximate), Expires: 05/11/2025[facility] ClinicComment on above:Expected: 02/09/2025 (Approximate), Expires: 05/11/2025Start: 02-09-2025 End: 22-21-4056Zfoiyhsnr [Mass/volume] in Serum or PlasmaMAGNESIUM Lab Routine 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) Expected: 02/09/2025 (Approximate), Expires: 05/11/2025[facility] ClinicComment on above:Expected: 02/09/2025 (Approximate), Expires: 05/11/2025Start: 02-09-2025 End: 64-96-6873MP Brain WO and W contrast IVMRI BRAIN WO/W IVCON Radiology Routine 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) Expected: 02/09/2025 (Approximate), Expires: 02/25/2026[facility] Work Phone: comment on above:Expected: 02/09/2025 (Approximate), Expires: 02/25/2026Start: 02-09-2025 End: 45-94-8052Atosmrzmevd [Units/volume] in Serum or PlasmaTHYROID STIMULATING HORMONE Lab Routine 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) Other fatigue Exp ected: 02/09/2025 (Approximate), Expires: 05/11/2025[facility] ClinicComment on above:Expected: 02/09/2025 (Approximate), Expires: 05/11/2025Start: 02-08-2025 End: 33-16-3730Uklncth encounter procedureRadiation OncologyComment on above:NEW START RIGHT NECK/SHOULDERNEW START RIGHT NECK SHOULDER-late morningStart: 02-06-2025 End: 53-13-9430Zupumqk encounter nbqwduisb64/21/2025 3:40 PM EDT Office Visit [facility] PERE[facility] [address] [place] [address] Ayesha Foote NP [address] [place] [phone] ELLIOT SHARMAINEEVUEStart: 02-02-2025 End: 66-56-2880Cjooicr evaluation of patient and accxkk7402/02/2025 10:00 AM EDT Nurse Visit Hematology/Oncology [address] [place] [address] [place] [address] [phone] Patricia Gregory, RN [address] [place] [address] Chemo EducationHematology/OncologyComment on above: Chemo EducationStart: 02-02-2025 End: 64-00-5407Bmvqncx encounter procedureRadiation OncologyComment on above:Est Pt New Problem, R ShoulderSIM SHOULDER- PRE SIM CONSENTStart: 01-26-2025 End: 37-02-7425Yvhvqm-up encounterHematology/OncologyComment on above:3 week follow up lab CHEMOTX CARBO/TAXOL/KEYTRUDAStart: 01-26-2025 End: 57-52-6591Uvzjlmj encounter adnztizxa54/10/2025 8:15 AM EDT Office Visit [facility] [address] [place], [place] [address] [address] 3 week follow up lab CHEMOTX CARBO/TAXOL/KEYTRUDANortHealthSource Saginaw LaboratoryComment on above:3 week follow up lab CHEMOTX CARBO/TAXOL/KEYTRUDAStart: 01-25-2025 End: 37-83-6529Qckbnrm encounter fbhjbklyu03/09/2025 10:45 AM EDT Office Visit Facial Plastics/Reconstruction [address] [place] [address] Elizabeth Balbuena MD [address] [place], [place] [phone] medical botoxFacial Plastics/ReconstructionComment on above:medical botoxStart: 01-23-2025 End: 19-72-8127Kpjyhvr evaluation of patient and uxgwoc9501/23/2025 11:00 AM EDT Nurse Visit Hematology/Oncology [address] [place] [address] [place] [address] Ghislaine Thakur RN [address] [place] [address] Chemo edHematology/OncologyComment on above:Chemo edStart: 01-18-2025 End: 60-00-9130TYA+CT Guidance for localization of tumor of Skull base to mid-thigh-- W 18F-FDG IVNM PET/CT SKULL-THIGH SUBSEQUENT Radiology Routine Metastatic cancer to bone (HCC) Expected: 01/18/2025 (Approximate), Expires: 02/03/2026[facility] Work Phone: comment on above:Expected: 01/18/2025 (Approximate), Expires: 02/03/2026Start: 01-18-2025 End: 07-15-9593Jkoyxjl encounter rytpycxji75/02/2025 8:00 AM EDT Appointment Radiology Pet CT [address] [place] [address] pet Radiology Pet CTComment on above:petStart: 01-04-2025 End: 97-01-6266KRL W Auto Differential panel - BloodCOMPLETE BLOOD COUNT AND DIFFERENTIAL Lab Routine Malignant neoplasm of overlapping sites of right lung (HCC) Metastatic cancer to bone (HCC) Malaise and fatigue Expected: 01/04/2025 (Approximate), Expires: 04/05/2025[facility]Comment on above:Expected: 01/04/2025 (Approximate), Expires: 04/05/2025Start: 01-04-2025 End: 77-05-1250Mdcxuitfadowa metabolic 2000 panel - Serum or PlasmaCOMPREHENSIVE METABOLIC PANEL Lab Routine Malignant neoplasm of overlapping sites of right lung (HCC) Metastatic cancer to bone (HCC) Malaise and fatigue Expected: 01/04/2025 (Approximate), Expires: 04/05/2025[facility] Work Phone: Comment on above:Expected: 01/04/2025 (Approximate), Expires: 04/05/2025Start: 01-04-2025 End: 06-24-3684Ovunstwbyee [Units/volume] in Serum or PlasmaTHYROID STIMULATING HORMONE Lab Routine Malignant neoplasm of overlapping sites of right lung (HCC) Metastatic cancer to bone (HCC) Malaise and fatigue Expected: 01/04/2025 (Approximate), Expires: 04/05/2025[facility] ClinicComment on above:Expected: 01/04/2025 (Approximate), Expires: 04/05/2025Start: 01-04-2025 End: 91-78-5676Kktcmb-up encounterHematology/OncologyComment on above:3 week follow up lab CHEMOTX CARBO/TAXOL/KEYTRUDAStart: 01-04-2025 End: 88-37-2828Okptbhh encounter lhbrkdlsa88/18/2025 9:45 AM EDT Office Visit [facility] [address] [place] [address] 3 week follow up lab CHEMOTX CARBO/TAXOL/KEYTRUDANortHealthSource Saginaw LaboratoryComment on above:3 week follow up lab CHEMOTX CARBO/TAXOL/KEYTRUDAStart: 12-14-2024 End: 87-85-3777RMH W Auto Differential panel - BloodCOMPLETE BLOOD COUNT AND DIFFERENTIAL Lab Routine Malignant neoplasm of overlapping sites of right lung (HCC) Expected: 12/14/2024 (Approximate), Expires: 03/15/2025[facility] Work Phone: comment on above:Expected: 12/14/2024 (Approximate), Expires: 03/15/2025Start: 12-14-2024 End: 80-09-0008Ztctoyguhjwnf metabolic 2000 panel - Serum or PlasmaCOMPREHENSIVE METABOLIC PANEL Lab Routine Malignant neoplasm of overlapping sites of right lung (HCC) Expected: 12/14/2024 (Approximate), Expires: 03/15/2025[facility] ClinicComment on above:Expected: 12/14/2024 (Approximate), Expires: 03/15/2025 Start: 12-14-2024 End: 19-81-3556Dnmzxlbpx [Mass/volume] in Serum or PlasmaMAGNESIUM Lab Routine Malignant neoplasm of overlapping sites of right lung (HCC) Expected: 12/14/2024 (Approximate), Expires: 03/15/2025[facility] ClinicComment on above:Expected: 12/14/2024 (Approximate), Expires: 03/15/2025Start: 12-14-2024 End: 58-49-1457Qwfhhy-up encounterHematology/OncologyComment on above:3 week follow up lab CHEMOTX CARBO/TAXOL/KEYTRUDAStart: 12-14-2024 End: 99-25-5524Mhyvpnp encounter glbfknrag41/28/2025 9:45 AM EDT Office Visit [facility] [address] [place] [address] 3 week follow up lab CHEMOTX CARBO/TAXOL/KEYTRUDANortHealthSource Saginaw LaboratoryComment on above:3 week follow up lab CHEMOTX CARBO/TAXOL/KEYTRUDAStart: 11-23-2024 End: 44-91-2708EQQ W Auto Differential panel - BloodCOMPLETE BLOOD COUNT AND DIFFERENTIAL Lab Routine Lung mass Malignant neoplasm of overlapping sitesof right lung (HCC) Expected: 11/23/2024, Expires: 02/22/2025[facility] Work Phone: comment on above:Expected: 11/23/2024, Expires: 02/22/2025Start: 11-23-2024 End: 48-22-6262Vzxhcygopdzgk metabolic 2000 panel - Serum or PlasmaCOMPREHENSIVE METABOLIC PANEL Lab Routine Lung mass Malignant neoplasm of overlapping sites of right lung (HCC) Expected: 11/23/2024, Expires: 02/22/2025[facility] Comment on above:Expected: 11/23/2024, Expires: 02/22/2025Start: 11-23-2024 End: 74-99-5392Pstsmbbiv [Mass/volume] in Serum or PlasmaMAGNESIUM Lab Routine Lung mass Malignant neoplasm of overlapping sites of right lung (HCC) Expected: 11/23/2024, Expires: 02/22/2025[facility] ClinicComment on above:Expected: 11/23/2024, Expires: 02/22/2025Start: 11-23-2024 End: 35-72-2200Velpmxnbarn [Units/volume] in Serum or PlasmaTHYROID STIMULATING HORMONE Lab Routine Lung mass Malignant neoplasm of overlapping sites of right l king (HCC) Other mixed anxiety disorders Expected: 11/23/2024, Expires: 5[facility] ClinicComment on above:Expected: 11/23/2024, Expires: 02/22/2025Start: 11-23-2024 End: 58-55-0501Lubylh-up encounterHematology/OncologyComment on above:3 week follow up lab CHEMOTX CARBO/TAXOL/KEYTRUDAStart: 11-23-2024 End: 54-10-7159Yysaakn encounter bjfbfbiql30/07/2025 9:45 AM EDT Office Visit [facility] [address] [place] [address] 3 week follow up lab CHEMOTX CARBO/TAXOL/KEYTRUDANortHealthSource Saginaw LaboratoryComment on above:3 week follow up lab CHEMOTX CARBO/TAXOL/KEYTRUDAStart: 11-22-2024 End: 19-18-7184Zrrcvnw encounter procedureANA BELLEVUEComment on above:Arrived Start: 11-16-2024 End: 97-72-4570IXT+CT Guidance for localization of tumor of Skull base to mid-thigh-- W 18F-FDG IVNM PET/CT SKULL-THIGH SUBSEQUENT Radiology Routine Metastatic cancer to bone (HCC) Malignant neoplasm of overlapping sites of right lung (HCC) Expected: 11/16/2024, Expires: 12/02/2025[facility] Work Phone: comment on above:Expected: 11/16/2024, Expires: 12/02/2025Start: 11-15-2024 End: 57-41-7156Bjwwola encounter tvrgkuygc10/29/2025 8:00 AM EDT Appointment Radiology Pet CT [address] [place] [address] pet Radiology Pet CTComment on above:petStart: 11-04-2024 End: 47-53-5203Ngvigfb encounter nwrxumblj58/18/2025 11:30 AM EDT Office Visit Palliative Medicine [address] [place] [address] Vincent Estrada, SKIVER UPPERS OR LININGS.KNIFER UP [address] [place] [address] 6 wk followPalliative MedicineComment on above:6 wk followStart: 11-02-2024 End: 96-33-2669Fepsoq-up encounterHematology/OncologyComment on above:3 week follow up lab CHEMOTX CARBO/TAXOL/KEYTRUDAStart: 11-02-2024 End: 38-09-4064Sdfwahy encounter dwolzabkk43/16/2025 8:45 AM EDT Office Visit [facility] [address] [place] [address] 3 week follow up lab CHEMOTX CARBO/TAXOL/KEYTRUDANortHealthSource Saginaw LaboratoryComment on above:3 week follow up lab CHEMOTX CARBO/TAXOL/KEYTRUDAStart: 10-12-2024 End: 82-85-3275Vhxlqb-up encounterHematology/OncologyComment on above:3 week follow up lab CHEMOTX CARBO/TAXOL/KEYTRUDAStart: 10-12-2024 End: 33-73-0408Tfqqsbq encounter /26/2025 9:15 AM EDT Office Visit [facility] [address] [place] [address] 3 week follow up lab CHEMOTX CARBO/TAXOL/KEYTRUDANorth [facility] LaboratoryComment on above:3 week follow up lab CHEMOTX CARBO/TAXOL/KEYTRUDAStart: 09-27-2024 End: 44-18-9492LFH W Auto Differential panel - BloodCOMPLETE BLOOD COUNT AND DIFFERENTIAL Lab Routine Metastatic cancer to bone (HCC) Malignant neoplasm of overlapping sites of right lung (HCC) Malaise and fatigue Expected: 09/27/2024, Expires: 12/27/2024leveland ClinicComment on above:Expected: 09/27/2024, Expires: 12/27/2024Start: 09-27-2024 End: 21-53-5101Hfepbxpkhnrwe metabolic 2000 panel - Serum or PlasmaCOMPREHENSIVE METABOLIC PANEL Lab Routine Metastatic cancer to bone (HCC) Malignant neoplasm of overlapping sites of right lung (HCC) Malaise and fatigue Expected: 09/27/2024, Expires: 12/27/2024[facility] Work Phone: Comment on above:Expected: 09/27/2024, Expires: 12/27/2024Start: 09-27-2024 End: 38-25-4447Dwzhfowwo [Mass/volume] in Serum or PlasmaMAGNESIUM Lab Routine Metastatic cancer to bone (HCC) Malignant neoplasm of overlapping sites of right lung (HCC) Malaise and fatigue Expected: 09/27/2024, Expires: 12/27/2024 [facility] HospitalComment on above:Expected: 09/27/2024, Expires: 12/27/2024Start: 09-27-2024 End: 85-07-3385Cgouwmiaabu [Units/volume] in Serum or PlasmaTHYROID STIMULATING HORMONE Lab Routine Metastatic cancer to bone (HCC) Malignant neoplasm of overla pping sites of right lung (HCC) Malaise and fatigue Expected: 09/27/2024, Expires: 12/27/2024TriHealthComment on above:Expected: 09/27/2024, Expires: 12/27/2024Start: 2024 End: 36-40-4110Hkfmwlc encounter xqoxkjyuc02/07/2025 11:00 AM EST Office Visit Palliative Medicine [address] [place] [address] Vincent Estrada SKIVER UPPERS OR LININGS.KNIFER UP [address] [place] [address] 4 week follow upPalliative MedicineComment on above:4 week follow upStart: 09-22-2024 End: 34-32-3502Fgergn-up ixgsgoosl20/06/2025 10:00 AM EST Visit (SP) Office Hematology/Oncology [address] [place] [address] Ann-Marie Gomez APRN.KNIFER UP [address] [place] [address] 1 week follow upHematology/OncologyComment on above:1 week follow upStart: 09-22-2024 End: 83-44-5104Uscqmwf encounter tiwbcwwlw41/06/2025 9:45 AM EST Office Visit [facility] [address] [place] [address] LAB & 1 WEEK FOLLOW UP-possible hydrationNortHealthSource Saginaw LaboratoryComment on above:LAB & 1 WEEK FOLLOW UP- possible hydrationStart: 09-21-2024 End: 77-14-9667OTE W Auto Differential panel - BloodCOMPLETE BLOOD COUNT AND DIFFERENTIAL Lab Routine Lung mass Metastatic cancer to bone (HCC) Expected: 09/21/2024 (Approximate), Expires: 12/21/2024[facility] Work Phone: comment on above:Expected: 09/21/2024 (Approximate), Expires: 12/21/2024Start: 09-21-2024 End: 59-22-0150Yyuzecazk (Vitamin B12) [Mass/volume] in Serum or PlasmaVITAMIN B12 Lab Routine Lung mass Metastatic cancer to bone (HCC) Expected: 09/21/2024 (Approximate), Expires: 12/21/2024leveland ClinicComment on above:Expected: 09/21/2024 (Approximate), Expires: 12/21/2024Start: 09-21-2024 End: 97-95-3383Kcoxrfqlfccsa metabolic 2000 panel - Serum or PlasmaCOMPREHENSIVE METABOLIC PANEL Lab Routine Lung mass Metastatic cancer to bone (HCC) Expected: 09/21/2024 (Approximate), Expires: 12/21/2024[facility] ClinicComment on above: Expected: 09/21/2024 (Approximate), Expires: 12/21/2024Start: 09-21-2024 End: 83-64-0839Klusgjfy [Mass/volume] in Serum or PlasmaFERRITIN Lab Routine Lung mass Metastatic cancer to bone (HCC) Expected: 09/21/2024 (Approximate), E xpires: 12/21/2024[facility] ClinicComment on above:Expected: 09/21/2024 (Approximate), Expires: 12/21/2024Start: 09-21-2024 End: 36-65-4813Aehoby [Mass/volume] in Serum or PlasmaFOLATE, SERUM Lab Routine Lung mass Metastatic cancer to bone (HCC) Expected: 09/21/2024 (Approximate), Expires: 12/21/2024[facility] ClinicComment on above:Expected: 09/21/2024 (Approximate), Expires: 12/21/2024Start: 09-21-2024 End: 27-21-5400Hrnibispuby [Mass/volume] in Serum or PlasmaHAPTOGLOBIN Lab Routine Lung mass Metastatic cancer to bone (HCC) Expected: 09/21/2024 (Approximate), Expires: 12/21/2024[facility] ClinicComment on above:Expected: 09/21/2024 (Approximate), Expires: 12/21/2024Start: 09-21-2024 End: 80-98-0193Rdqb and Iron binding capacity panel - Serum or PlasmaIRON AND TIBC Lab Routine Lung mass Metastatic cancer to bone (HCC) Expected: 09/21/2024 (Approximate), Expires: 12/21/2024[facility] ClinicComment on above:Expected: 09/21/2024 (Approximate), Expires: 12/21/2024Start: 09-21-2024 End: 80-50-8997HIZKC/MEHTA,FREE,SERKAPPA/MEHTA,FREE,SER Lab Routine Lung mass Metastatic cancer to bone (HCC) Expected: 09/21/2024, Expires: 12/21/2024 [facility] HospitalComment on above:Expected: 09/21/2024, Expires: 12/21/2024Start: 09-21-2024 End: 14-28-1387Muvljs-up ekoxyygvf66/05/2025 11:00 AM EST Visit (SP) Office Hematology/Oncology [address] [place] [address] Ann-Marie Gomez APRN.KNIFER UP [address] [place] [address] 1 week follow upHematology/OncologyComment on above:1 week follow upStart: 09-21-2024 End: 37-26-6796Ikywybf encounter eevrmdibk78/05/2025 10:45 AM EST Office Visit [facility] [address] [place] [address] 1 week follow upNortHealthSource Saginaw LaboratoryComment on above:1 week follow upStart: 09-16-2024 End: 58-40-7918Yshpnxqqs unnplhg9309/16/2024 10:00 AM EST [facility] Nutrition Therapy [address] [place] [address] Dahlia Machado, RD [address] [place] [address] Nutri appt / Dr GraciaNutrition TherapyComment on above:Nutri appt / Dr GraciaStart: 09-14-2024 End: 03-03-6750Mdldqb-up encounterHematology/OncologyComment on above:FOLLOW UP AND CHEMOTX CARBO/TAXOL/KEYTRUDA - fr discharge 09/12Start: 09-14-2024 End: 70-60-9848Cyplrhx encounter ibdjiqant71/26/2025 8:45 AM EST Office Visit [facility] [address] [place] [address] FOLLOW UP AND CHEMOTX CARBO/TAXOL/KEYTRUDA - frmc discharge 09/12[facility] LaboratoryComment on above:FOLLOW UP AND CHEMOTX CARBO/TAXOL/KEYTRUDA - frmc discharge 09/12Start: 99-07-7350SuhpqldbdMorrow County Hospitaltart: 62-15-3035Uwlkxsnz identified in Blood by Culture Blood CultureMorrow County Hospitaltart: 09-09-2024 End: 14-93-4219ECE W Auto Differential panel - BloodCOMPLETE BLOOD COUNT AND DIFFERENTIAL Lab Routine Malignant neoplasm of overlapping sites of right lung (HCC) Expected: 09/09/2024 (Approximate), Expires: 12/09/2024[facility] Work Phone: comment on above:Expected: 09/09/2024 (Approximate), Expires: 12/09/2024Start: 09-09-2024 End: 21-78-8566Eeoiehnyuvfqt metabolic 2000 panel - Serum or PlasmaCOMPREHENSIVE METABOLIC PANEL Lab Routine Malignant neoplasm of overlapping sites of right lung (HCC) Expected: 09/09/2024 (Approximate), Expires: 12/09/2024[facility] ClinicComment on above:Expected: 09/09/2024 (Approximate), Expires: 12/09/2024 Start: 09-09-2024 End: 23-47-4318Lefftfsjz [Mass/volume] in Serum or PlasmaMAGNESIUM Lab Routine Malignant neoplasm of overlapping sites of right lung (HCC) Expected: 09/09/2024 (Approximate), Expires: 12/09/2024[facility] ClinicComment on above:Expected: 09/09/2024 (Approximate), Expires: 12/09/2024Start: 09-09-2024 End: 30-88-6561Bihascoyecz [Units/volume] in Serum or PlasmaTHYROID STIMULATING HORMONE Lab Routine Malignant neoplasm of overlapping sites of right lung (HCC) Anxiety disorder, unspecified type Expected: 09/09/2024 (Approximate), Expires: 12/09/2024[facility] ClinicComment on above:Expected: 09/09/2024 (Approximate), Expires: 12/09/2024Start: 11-52-0679Jsevvzoq to oncologistMorrow County Hospitaltart: 87-99-5407HjkalbhffMorrow County Hospitaltart: 19-47-2786Ddgpevxm to rehabilitation [facility] [place] Start: 09-09-2024 End: 81-53-4770Uvuban-up encounterHematology/OncologyComment on above:2 WEEK LAB FOLLOW UP AND CHEMOTX CARBO/TAXOL/KEYTRUDAStart: 09-09-2024 End: 26-59-4163Tgkozkf encounter procedureLafayette General Southwest LaboratoryComment on above:2 WEEK LAB FOLLOW UP AND CHEMOTX CARBO/TAXOL/KEYTRUDA PLEASE SCHEDULE NUTRI CONSULT IF PATIENT WANTSStart: 02-45-5546Xbkwpmaq to infectious diseases physicianMorrow County Hospitaltart: 09-07-2024 Hospital admissionMorrow County Hospitaltart: 80-22-2757HloyrsqcvMorrow County Hospitaltart: 09-06-2024 End: 50-43-3715LtobkdmfsMorrow County Hospitaltart: 11-73-6914Owzhgfqz identified in Blood by CultureBlchuy [facility] Start: 09-06-2024 End: 81-76-2781Pdbrbco encounter gspssbzaz45/18/2025 1:20 PM EST Office Visit [facility] [address] [place] [phone] Emilia Cervantes PA [address] [place] [address] [facility] R[facility]TEStart: 08-31-2024 End: 69-82-3372Uivpqrd encounter procedureRadiation OncologyComment on above:Rt Shoulder \T\ Rt PelvisLocation: SA-ON TREATMENT REVStart: 08-30-2024 End: 81-51-5907Jbkhqpv evaluation of patient and xmzljf8808/30/2024 3:00 PM EST Nurse Visit Hematology/Oncology [address] [facility] [place] [address] [phone] Ghislaine Thakur RN [address] [place] [place] [address] CARBO/TAXOL/KEYTRUDAHematology/OncologyComment on above: CARBO/TAXOL/KEYTRUDAStart: 08-30-2024 End: 47-19-4840Doqwwaa encounter aurixxzpc57/11/2025 2:45 PM EST Appointment Radiation Oncology [address] [facility] [place] [address] Rt Shoulder \T\ Rt PelvisRadiation OncologyComment on above:Rt Shoulder \T\ Rt PelvisStart: 08-29-2024 End: 29-87-0092Jpmrogp encounter kxadpuaqd19/10/2025 1:00 PM EST Appointment Radiation Oncology [facility] [place] [address] Rt Shoulder \T\ Rt PelvisRadiation OncologyComment on above:Rt Shoulder \T\ Rt PelvisStart: 08-26-2024 End: 11-66-0926wikqunpteo58/07/2025 1:30 PM EST Visit (SP) Office Hematology/Oncology [address] [place] [address] [address] [place] [phone] Isaac Gracia MD [address] [place] [address] [place] [address] Malignant neoplasm of overlapping sites of right lung (HCC) [C34.81]Hematology/OncologyComment on above:Malignant neoplasm of overlapping sites of right lung (HCC) [C34.81]Start: 08-26-2024 End: 76-49-0234Nmcncfw encounter vrptrhict78/07/2025 12:30 PM EST Appointment Radiation Oncology [address] [place] [address] [place] [address] Rt Shoulder \T\ Rt Pelvis - PALL MED AT 1, FLANAGAN AT 130Radiation OncologyComment on above:Rt Shoulder \T\ Rt Pelvis - PALL MED AT 1, FLANAGAN AT 130Start: 08-26-2024 End: 35-86-9950Eeglpoa encounter procedurePalliative MedicineComment on above: NEW PALL CAREStart: 08-25-2024 End: 40-02-7981Lelgguy encounter procedureRadiation OncologyComment on above:NEW START RT SHOULDER \T\ RT HIPRT SHOULDER \T\ RT HIP - AFTERNOONS- make safety strapStart: 08-24-2024 End: 83-82-3783Iaudojy evaluation of patient and ppxlge1608/24/2024 2:40 PM EST Nurse Visit Radiation Oncology [address] [place] [address] [place] [address] [phone] Nurse Chio Radiation Ed Radt [address] [place] [address] [place] [address] Nurse EducationRadiation OncologyComment on above:Nurse EducationStart: 08-24-2024 End: 62-15-4599Gbcilzx encounter procedureRadiation OncologyComment on above: ConsultSIM - RT HIP, RT SHOULDER - NEEDS CONSENTStart: 08-23-2024 End: 84-90-6136rzmnxblrso06/04/2025 2:00 PM EST Visit (SP) Office Hematology/Oncology [address] [place], [place] [phone] Sarabjit Crowley, [address] [place] [address] Metastatic with Suspected Lung PrimaryHematology/OncologyComment on above: Metastatic with Suspected Lung PrimaryStart: 08-23-2024 End: 98-34-9485Eyyhtis encounter /04/2025 10:45 AM EST Office Visit Orthopaedics [address] [address] Sarabjit Sharma MD [address] [address] 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 - Per KristiOrthopaedicsComment on above: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 - Per KristiStart: 08-23-2024 End: 84-92-7780Avvsygv encounter /04/2025 9:30 AM EST Office Visit Orthopaedics [address] [address] Sarabjit Sharma MD [address] [address] 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 - Per KristiOrthopaedicsComment on above: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 - Per KristiStart: 08-22-2024 End: 32-51-9605Itkvxqx encounter exzazneat22/03/2025 10:00 AM EST Office Visit Radiation Oncology [address] [place] [address] [place] [address] [place] [address] metastatic cancer- Lung primaryRadiation OncologyComment on above:metastatic cancer- Lung primaryStart: 08-10-2024 End: 99-90-6070Mojgctaak to same day surgery lfmlsr0608/10/2024 8:00 AM EST - 08/10/2024 9:08 AM EST Surgery Angio [address] [place] [address] Mayi Kidd MD [address] [place] [address] BONEBIOPSY,TROCAR/NEEDLE SUPERFICIALAngioComment on above: BONE BIOPSY,TROCAR/NEEDLE SUPERFICIALStart: 08-10-2024 End: 15-81-0630Zoqkuq bone trocar/needle superficialBONE BIOPSY,TROCAR/NEEDLE SUPERFICIAL Lytic bone lesions on xray 08/10/2024 8:00 AM [facility] ANGIO NQ7Nqzbz: 12-07-0468Knuknrarvp hospital visit by vzuipnvui02/22/2025 8:00 AM [facility] Encounter Angio [address] [place] [address] Thomas Araiza MD [address] [place] [address] Lytic bone lesionson xray [M89.9]AngioComment on above:Lytic bone lesions on xray [M89.9] Start: 07-29-2024 End: 59-17-3353SXF PHOS BONE SPECCletrumbull memorial hospital ClinicComment on above:Expected: 07/29/2024, Expires: 10/28/2024Start: 07-29-2024 End: 85-77-7995BZIDTVB ELECT RND UR W/INTERPCleveland ClinicComment on above: Expected: 07/29/2024, Expires: 10/28/2024Start: 07-29-2024 End: 66-58-9697ULCARYX ELECTROPHORESIS SERUM W/INTERPCleveland ClinicComment on above:Expected: 07/29/2024, Expires: 10/28/2024Start: 85-81-1973Fgtylfi Directive DiscussionAdvance Directive DiscussionCletrumbull memorial hospital ClinicStart: 07-07-2024 End: 91-62-0500Svsqhrd encounter procedureRadiologyComment on above:4 vw RT shoulderPossible bone mets, rt shoulder.Start: 06-07-2024 End: 27-29-5330GuatswfojMorrow County Hospitaltart: 05-27-2024 End: 85-05-6877FH for calcium scoring WO contrast and CTA W contrast IV Heart and coronary arteriesCT cardiac scoring wo IV contrast Imaging Routine Mixed hyperlipidemia Expected: 05/27/2024 (Approximate), Expires: 05/27/2025[facility] Service Area Work Phone: Comment on above:Expected: 05/27/2024 (Approximate), Expires: 05/27/2025Start: 05-16-2024 End: 42-90-0676Qyeappz encounter fxogszpbo68/28/2024 3:40 PM EDT Office Visit [facility] [address] [place] [phone] Shasta Wade PA [address] [place] [address] ArrivedNOMS [facility] ROUTEComment on above: ArrivedStart: 62-71-1284Imrtfmtac for malignant neoplasm of colonMercy Health – The Jewish Hospitaltart: 14-38-8598Bjxtv-19 Vaccine ( season)Covid-19 Vaccine ()[facility]: 76-79-7869Ndxwwshpi vaccinationInfluenza Vaccine (#1)[facility]: 63-59-0418Wlhyrkm Directive Discussion Advance Directive DiscussionMercy Health – The Jewish Hospitaltart: 22-13-4175Dyzcvshrr vaccinationInfluenza Vaccine (#1)[facility]: 42-62-2213Ryhqauupl for malignant neoplasm of breastMercy Health – The Jewish Hospitaltart: 28-06-7966YKYVRIH DIRECTIVE DISCUSSIONADVANCE DIRECTIVE DISCUSSIONMercy Health – The Jewish Hospitaltart: 07-20-2022 DEPRESSION ASSESSMENTDEPRESSION ASSESSMENTMercy Health – The Jewish Hospitaltart: 03-20-2022 Influenza vaccinationMercy Health – The Jewish Hospitaltart: 33-52-9195BNUMM-19 VACCINE (4 - Booster for Pfizer series)COVID-19 VACCINE (4 - Booster for Pfizer series) [facility]: 48-26-6496YWAQKEO DIRECTIVE DISCUSSIONADVANCE DIRECTIVE DISCUSSIONMercy Health – The Jewish Hospitaltart: 39-09-2522WFWZ DENSITYBONE DENSITYMercy Health – The Jewish Hospitaltart: 07-44-5727Hcvp Density ScreeningBone Density ScreeningMercy Health – The Jewish Hospitaltart: 38-74-1326Hqznnnwxqswn Vaccine: 65+ (1 - PCV)Pneumococcal Vaccine: 65+ (1 - PCV)[facility]: 96-79-8189Lgixcxpmzctj Vaccine: 65+ (1 of 1 - PCV)Pneumococcal Vaccine: 65+ (1 of 1 - PCV)[facility]: 2021 Pneumococcal Vaccine: 65+ Years (1 of 1 - PCV)Pneumococcal Vaccine: 65+ Years (1 of 1 - PCV)[facility] CenterStart: 79-70-8883BRJXKVBUDSLC: 65+ (1 - PCV) PNEUMOCOCCAL: 65+ (1 - PCV)[facility]: 29-21-1446LOFPSXTQJ AGE 65 AND OVER WITH 5YR LOOKBACK (#1)PNEUMOVAX AGE 65 AND OVER WITH 5YR LOOKBACK (#1) [facility]: 64-82-8166Wbwfmvuzi for osteoporosisBone Density ScreeningMercy Health – The Jewish Hospitaltart: 58-02-8851PGXDC-19 VACCINE (4 - Booster for Pfizer series)COVID-19 VACCINE (4 - Booster for Pfizer series)[facility] Start: 37-43-0288Nrzqj-19 Vaccine (4 - Pfizer series)Covid-19 Vaccine (4 - Pfizer series)[facility]: 38-72-3522ENSCNIXFPD ASSESSMENTDEPRESSION ASSESSMENTMercy Health – The Jewish Hospitaltart: 25-30-5030CLD Vaccine (1 - Risk 60-74 years 1- dose series)RSV Vaccine (1 - Risk 60-74 years 1-dose series)[facility] Start: 37-17-6967JODNPMRM SCREENDIABETES SCREENMercy Health – The Jewish Hospitaltart: 12-24-2012 Diabetes ScreeningDiabetes ScreeningCleMercy Hospitaltart: 2006 Pneumococcal Vaccine: 50+ (1 of 1 - PCV)Pneumococcal Vaccine: 50+ (1 of 1 - PCV) [facility]: 75-35-3098Cfsgzjninxxz Vaccine: 65+ Years (1 of 1 - PCV) Pneumococcal Vaccine: 65+ Years (1 of 1 - PCV)[facility] CenterStart: 2006 SHINGRIX VACCINE (1 of 2)SHINGRIX VACCINE (1 of 2)[facility]: 72-23-9438Yeixes Vaccines (1 of 2)Zoster Vaccines (1 of 2)[facility]Start: 12-01-2005Medicare Annual Wellness VisitMedicare Annual Wellness VisitMercy Health – The Jewish Hospitaltart: 27-01-3311PAKSOTNHM (FIT-DNA)COLOGUARD (FIT-DNA)[facility]: 89-92-5694SyflcqtjgsfVPHDCRMQOQLAikcsrmax Clinic Start: 98-96-7312TURAYGTZWG CANCER SCREENINGCOLORECTAL CANCER SCREENINGMercy Health – [facility] Hospitaltart: 73-77-5543FT COLONOGRAPHYCT COLONOGRAPHYMercy Health – The Jewish Hospitaltart: 55-45-9576CYKPM OCCULT BLOODFECAL OCCULT BLOODMercy Health – The Jewish Hospitaltart: 2001 Lipid 1996 panel - Serum or PlasmaLipid ScreeningMercy Health – The Jewish Hospitaltart: 03-00-4567Biljf panelLipid ScreeningMercy Health – The Jewish Hospitaltart: 75-86-2747VWNYT SCREENLIPID SCREENMercy Health – The Jewish Hospitaltart: 59-00-1726Kqdjeigzr for malignant neoplasm of colonMercy Health – The Jewish Hospitaltart: 17-26-0175GGKQFSQTYKLZWVEXOQKLKPOLUA [facility]: 27-47-0144FbwwcguvpllEozlufwzw ClinicStart: 1978 DTaP/Tdap/Td Vaccines (1 - Tdap)DTaP/Tdap/Td Vaccines (1 - Tdap)[facility] HospitalStturn[facility] [place]: 83-27-0698Pkbijtuzipqs Vaccine: 50+ (1 of 2 - PCV) Pneumococcal Vaccine: 50+ (1 of 2 - PCV)[facility]: 09-24-1975 Shingrix Vaccine (1 of 2)Shingrix Vaccine (1 of 2)[facility]: 25-92-0196Brbfh microalbumin profileMercy Health – The Jewish Hospitaltart: 08-04-3320Oxfmpv PCP Team Chronic Disease VisitAnnual PCP Team Chronic Disease VisitPromedica Bay Park Hospital Start: 19-68-6886Swwjyvrnjq ScreeningDepression ScreeningMercy Health – The Jewish Hospitaltart: 41-69-2033Eqvabzod mellitus screeningDiabetes ScreeningMiddletown HospitalStturners falls: 37-45-6068DNQJMNVGZ C SCREENINGHEPATITIS C SCREENINGMercy Health – The Jewish Hospitaltart: 15-41-0730Qdrccolif C screeningHepatitis C ScreeningMercy Health – The Jewish Hospitaltart: 35-18-5777LVH SCREENINGHIV SCREENINGMercy Health – The Jewish Hospitaltart: 78-74-7628Soqwr depression screening assessmentDEPRESSION SCREENINGMercy Health – The Jewish Hospitaltart: 09-62-2797Mmmxbluum for malignant neoplasm of cervixCervical Cancer ScreeningMercy Health – The Jewish Hospitaltart: 91-74-6939Uccoa panelLipid PanelUnHolmes County Joel Pomerene Memorial HospitalStturners falls: 03-07-1957Medicare Annual Wellness VisitMedicare Annual Wellness Visit (AWV)[facility] HospitalStturners [place]: 1955 Screening for malignant neoplasm of colonNOMS [facility] CenterStart: 1956 Screening for osteoporosisBone Density ScanMiddletown Hospital Start: 86-43-7266Wuvzkgs stimulating hormone measurementTS LevelMiddletown Hospital End: 33-97-7346XX Abdomen and Pelvis W contrast IVCT ABD/PEL W IVCON Radiology Routine Lytic bone lesions on xray Thyroid nodule Thyroid nodule greater than or equal to 1 cm in diameter incidentally noted on imaging study 1 Occurrences starting 07/29/2024 until 08/28/2025[facility] Work Phone: comment on above:1 Occurrences starting 07/29/2024 until 08/28/2025 End: 70-82-9299HN Chest W contrast IVCT CHEST W IVCON Radiology Routine Lytic bone lesions on xray Thyroid nodule Thyroid nodule greaterthan or equal to 1 cm in diameter incidentally noted on imaging study 1 Occurrences starting 025 until 08/28/2025[facility]HealthComment on above:1 Occurrences starting 07/29/2024 until 08/28/2025 Guidance for radiation treatment of Unspecified body regionCT SIM PLANNING RADIATION ONCOLOGY Radiology Routine 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) Ordered: 08/24/2024[facility] Work Phone: Comment on above:Ordered: 08/24/2024T Guidance for radiation treatment of Unspecified body regionCT SIM PLANNING RADIATION ONCOLOGY Radiology Routine 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) Ordered: 02/02/2025[facility] Work Phone: Comment on above:Ordered: 02/02/2025Guidance for deep biopsy of BoneIMAGING GUIDED BIOPSY RIB/BONY PELVIS/STERNUM/SPINOUS PROCESS Radiology Routine Lytic bone lesions on xray Ordered: 07/29/2024[facility] Work Phone: comment on above:Ordered: 07/29/2024 End: 78-98-2831UL Brain WO and W contrast IVMRI BRAIN WO/W IVCON Radiology Routine Malignant neoplasm of overlapping sites of right lung (HCC) 1 Occurrences starting 08/23/2024 until 09/22/2025[facility] Work Phone: Comment on above:1 Occurrences starting 08/23/2024 until 09/22/2025 End: 76-04-4885PX Shoulder - right WO and W contrast IVMRI SHOULDER WO/W IVCON RIGHT Radiology Routine Malignant neoplasm of overlapping sites of right lung (HCC) Metastatic cancer to bone (HCC) Malaise and fatigue Pain of right upper arm Swelling of arm1 Occurrences starting 12/14/2024 until 01/13/2026leveland ClinicComment on above:1 Occurrences starting 12/14/2024 until 01/13/2026 End: 23-61-7258CD Whole body Bone ViewsNM BONE WHOLE BODY Radiology Routine Lytic bone lesions on xray Thyroid nodule Thyroid nodule greater than or equal to 1 cm in diameter incidentally noted on imaging study 1 Occurrences starting 07/29/2024 until 08/28/2025[facility] ClinicComment on above:1 Occurrences starting 07/29/2024 until 08/28/2025Patient EducationAdena [facility] Work Phone: Patient referralAdena [facility] Work Phone: SURGICAL PATHOLOGYSURGICAL PATHOLOGY Lab Routine Lytic bone lesions on xray Ordered: 07/29/2024[place] ClinicComment on above: Ordered: 07/29/2024 End: 12-24-7284IN Thyroid glandUS THYROID/PARATHYROID Radiology Routine Multiple thyroid nodules 1 Occurrences starting 03/14/2025until 04/13/2026leveland ClinicComment on above:1 Occurrences starting 03/14/2025 until 04/13/2026 End: 22-03-8766SI Upper extremity vein - rightUS DVT UPPER RIGHT Radiology STAT Malignant neoplasm of overlapping sites of right lung (HCC) Pain of right upper arm Swelling of arm 1 Occurrences starting 12/14/2024 until 01/13/2026leveland ClinicComment on above:1 Occurrences starting 12/14/2024 until 01/13/2026 End: 39-57-9055XK Hip - bilateral JudetXR HIP SPECIAL 2V JUDET VIEWS Radiology Routine Metastatic cancer to bone (HCC) Lytic bone lesions on xray Lung mass 1 Occurrences starting 08/23/2024 until 6[place] ClinicComment on above:1 Occurrences starting 08/23/2024 until 09/22/2025 End: 23-70-0071XX Pelvis APXR PELVIS 1V AP Radiology Routine Metastatic cancer to bone (HCC) Lytic bone lesions on xray Lung mass 1 Occurrences starting 08/23/2024 until 6[place] ClinicComment on above:1 Occurrences starting 08/23/2024 until 09/22/2025 End: 99-25-4146CL Scapula - right AP and LateralXR SCAPULA 2V AP/LAT RIGHT Radiology Routine Metastatic cancer to bone (HCC) Lytic bone lesions on xray 1 Occurrences starting 08/23/[address] [place] [address] Work Phone: comment on above:1 Occurrences starting 08/23/2024 until 09/22/2025 End: 78-03-8897AO Shoulder - right 3 ViewsXR SHOULDER GENERAL 3V OR MORE AP/TRUE AP/OTHER RIGHT Radiology Routine Pain 1 Occurrences fmlugwqm82/18/[address] [place] [address] Work Phone: Comment on above:1 Occurrences starting 07/06/2024 until 08/05/2025 End: 07-90-1991AE Shoulder - right 4 ViewsXR SHOULDER ORTHO 4V AP/TRUE AP/LAT/OUTLET RIGHT Radiology Routine Right shoulder pain, unspecifiedchronicity 1 Occurrences starting 07/06/[address] [place] [address] Work Phone: Comment on above:1 Occurrences starting 07/06/2024 until 08/05/2025XR Shoulder - right 4 ViewsXR SHOULDER ORTHO 4V AP/TRUE AP/LAT/OUTLET RIGHT Radiology Routine Right shoulder pain, unspecifiedchronicity 07/07/2024 2:35 PM [facility]: [facility] Immunizations Immunization DateImmunizationNotesCare CtfbnvzgKohcedrb18-24-0959DNUW-UsX-7 (COVID-19) mRNA BNT-162b2 vaxKathy Lue [facility]06-22-2021SARS-CoV-2 (COVID-19) mRNA BNT-162b2 vaxKathy Lue [facility]03-22-2021SARS-CoV-2 (COVID-19) mRNA BNT-162b2 vaxKathy Lue [facility]01-01-2021SARS-CoV-2 (COVID-19) mRNA BNT-162b2 vaxKathy Lue [facility] Payers DatePayer CategoryPayerPolicy [id number] Health InsuranceCONNALLY MEMORIAL [facility] CENTERR CHOICE PLUS [id number] 2017-Present [phone] [address] [address] [place] [address] [id number]98Btketjb Health Insurance .[id number] DENTAL GENERIC [id number] 2012-Present [phone] [address] [address] [place] [address] Dental [id number] 2005MedicareMEDICARE MEDICARE A AND B [id number] 2005-Rust [phone] [address] [address] [place], [place] [phone] [id number]. Medicare1.2.840.381732.1.13.159.2.7.3.372395.315 [id number] 28-64-8426Hbijksk Health [id number] [id number] 2.0.1.020515.3.579.2.22614-94-3018Skwmjpt2849217 2.840.1.233160.3.579.2.91552-55-7230Ygmbqjn2215152 2.0.1.123175.3.579.2.32771-50-2454Ovhomyn6549260 2.0.1.365025.3.579.2.24043-37-7247Eirqqfa4907722 2.0.1.262689.3.579.2.07572-62-4586Hldkegn7147786 2.840.1.961507.3.579.2.32665-60-1278Mxwibbp999350922 2.840.1.882761.3.579.2.753913-82-7728Eoqzeml2252781 2.840.1.345349.3.579.2.949544-20-5015Aawukuo4506701 2.840.1.719564.3.579.2.790605-37-3224Nrnqtpr6426096 2.16.840.1.180723.3.579.2.835586-44-1219Ionrqmg1682917 2.16.840.1.480009.3.579.2.849349-61-1987Gwhdgwt0700521 2.16.840.1.195167.3.579.2.915277-82-4140Geirpjo7392241 2.16.840.1.376661.3.579.2.808392-40-4726Lxvlxxy2188627 2.16.840.1.805914.3.579.2.234160-93-9648Hppiwgl2742637 2.16.840.1.187199.3.579.2.712200-19-4746Laiqsrl0612569 2.160.1.321606.3.579.2.941135-41-9041Wnjtjos36374160 2.16840.1.702171.3.579.2.27581-05-3408Gtlhgsk31959040 2.16840.1.687715.3.579.2.71028-14-0451Fvlrcxa34462302 2.16840.1.391486.3.579.2.49228-04-4701Pcisath24148054 2.16.840.1.321816.3.579.2.92426-86-1259Qpubvou58687184 2.16840.1.728774.3.579.2.94174-89-5149Ycbtnnp81318732 2.16.840.1.197910.3.579.2.23724-64-5991Ltopyrj26733378 2.16840.1.803305.3.579.2.11957-88-3622Cgbrifg37702925 2.0.1.231143.3.579.2.27842-32-6852Iiysbiv56565595 2.0.1.451185.3.579.2.64845-49-3501Jbndjnh34237956 2.0.1.342836.3.579.2.727MedicareSelf [id number] cmp19358-20x7-245c-[id number] 77t31y00-4y6o-71v9-n785-4251yj7u2984Huvxcna39504927 2.840.1.594676.3.579.2.947Lhndfkf51158553 2.840.1.336061.3.579.2.531 Wlgbqxg03550371 2.840.1.839042.3.579.2.810Mavbzdx94863111 2.840.1.757478.3.579.2.480Qitsweo18046639 2.840.1.097139.3.579.2.531 Vmytynl63324980 2.840.1.625422.3.579.2.630Nmxhphw95592963 2.0.1.519792.3.579.2.287Hvsulfh33248597 2.0.1.941662.3.579.2.531 Social History DateTypeDetailFacilityTobacco smoking status NHISUnknown if ever smokedAdena [facility] CtrStart: 80-20-0172Yqz Assigned At BirthP[facility] Hospitaltart: 09-18-2021 End: 30-86-0482Ajrjwnh smoking status NHISEx-smokerMercy Health – The Jewish Hospitaltart: 07-20-1981 End: 59-60-9285Dmmltut of tobacco useCurrent smokerMercy Health – The Jewish Hospitaltart: 07-20-1980 End: 01-13-0844Wuhmhwf of tobacco useCigarette SmokerMercy Health – The Jewish Hospitaltart: 11-12-2021 End: 47-07-7031Mmkvius intakeCurrent non-drinker of alcohol (finding)[facility] Hospitaltart: 58-31-7062Osz Assigned At BirthNot on fileMercy Health – The Jewish Hospitaltart: 11-02-2021 End: 41-67-3827Gptazkzj to SARS-CoV-2 (event)Not sureMercy Health – The Jewish Hospitaltart: 04-10-2023 End: 25-76-1735Bxx Assigned At BirthFemaleExec[facility] start: 05-16-2022 End: 97-20-5665Fgyyvwapox smoked current (pack per day) - Reported1.5[facility] ClinicStart: 05-16-2022 End: 04-84-1166Qpxtlie use and exposureSmokeless tobacco non-userMercy Health – The Jewish Hospitaltart: 39-49-4549Vifkggui Score (1-100), lower number is lower risk87 [facility], Inctart: 61-12-4746Wahtnd identityIdentifies as female gender (finding)[facility]art: 02-25-2024 End: 97-63-7531Opqrfqdvt beverage intakeLifetime non-drinker (finding)[facility] HealthcareHow often to you have a drink containing alcohol?Monthly or lessNOMS HealthcareHow many standard drinks containing alcohol do you have on a typical day?1 or 2NOMS HealthcareHow often do you have 6 or more drinks on 1 occasion? NeverNOMS HealthcareStart: 58-03-8483Hgznepd CommentLast smoked 10+ years ago [facility] HealthcareStart: 13-53-3580Naoqmpg CommentCaffine intake:4+ cups dailyNOMS HealthcareStart: 49-61-8348Uwtsrjcnr beverage intakeEx-drinker (finding) [facility] Work Phone: Start: 06-01-2024 End: 94-06-2819UzgTkvgeyi sex unknown (finding)[facility] Start: 09-02-2024 End: 67-54-1939FypIwahzv (finding)[facility] Medical Equipment Procedure CodeEquipment CodeEquipment Original TextEquipment IdentifierDates Cystoscopy, with ureteral calculus manipulation and stent placementPolymeric ureteral [id number] FDAStart: 22-65-5060Rmnv Eyelid Weight 1.0g - [id number]_pwcBkpsa: 12-24-2009 Goals DatePatient GoalDesired Activity/State Functional Status OzddJpofvmedvpVysudxLemhprol32-00-2843Jrhorzoutq statusPatient at Baseline [facility] Work Phone: 1(607) 965-964812958436-42-4270Jldrlazokh StatusN/AExec[facility]rology of [place] 430550-29-2024Functional StatusN/AExec[facility]09-25-2024Functional StatusN/A [facility]09-24-2024Functional StatusExec[facility] of [facility]08-29-2024 Functional StatusN/A[facility] 47-83-0254Jezlcwhhkp StatusN/AExec[facility]05-10-2023Functional StatusN/A[facility]01-04-2023Functional StatusN/A[facility]06-29-2022Functional StatusN/AExec[facility] 02-382226-47-6718Xnl you deaf, or do you have serious difficulty hearingYes 09/15/2014 12:58 PM Penny Diana MA Yes [facility] HospitalArroaq91-64-5153Okj you blind, or do you have serious difficulty seeing, even when wearing glassesYes 09/15/2014 12:58 PM Penny Diana MA YesPromedica Bay Park HospitalApvxas07-53-8113Xf you have serious difficulty walking or climbing stairsNo 09/15/2014 12:58 PM Penny Diana MA [facility]02-27-2015Do you have difficulty dressing or bathingNo 09/15/2014 12:58 PM Penny Diana MA [facility]02-27-2015 Because of a physical, mental, or emotional condition, do you have difficulty doing errands alone such as visiting a physician's office or shoppingYes 09/15/2014 12:58 PM Penny Diana MA [facility] Mental Status QzacIngzwliqogDmrehvSalmgkal76-30-5981Yrgjybidu functionCognitive Status Patient at BaselineAdena [facility] Work Phone: [phone]) 832-23120981332-95-9670Lktijgk of a physical, mental, or emotional condition, do you have serious difficulty concentrating, remembering, or making decisionsNo 09/15/2014 12:58 PM Penny Diana MA [facility] Clinical Notes 11-12-2021 to 05-30-2025 Note Date & MzueJhbzJusemnev50-28-5242 NoteMemorial [facility]10-21-2025 NoteHNO ID: [id number] Author: TALIA FLORES RN Service: ? Author Type: Registered Nurse Type: Progress Notes Filed: 05/09/2025 15:48 Note Text: See telephone encounter regarding photosensitivity. Talia Flores RNMemorial Health [facility] Hospital10-21-2025 [facility]10-07-2025 Note [facility]09-30-2025 NoteMemorial Health [facility]09-30-2025 NoteMem[facility]09-30-2025 NoteMem[facility] 04-14-2025 NoteMem[facility]09-24-2025 NoteMem[facility]09-19-2025 NoteMem[facility]09-19-2025 NoteMem[facility]08-27-2025 NoteMem[facility]08-27-2025 History of Present illness Narrative* Shaka Smart MD - 03/15/2025 12:54 PM EDT Radiation Oncology - Follow Up Note PATIENT NAME: Ofe Saravia PATIENT DIAGNOSIS: Stage IV non-small cell lung cancer, 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 RADIATION SUMMARY: Course 1:DATES OF TREATMENT: 08-21-2024 TO 08-31-2024 AREA TREATED: Right Shoulder and Right Pelvis DELIVERED DOSE: Area: Right Shoulder 2000cGy in 5 fractions, 2 Geronimo, 6X & 15X with CBCT daily guidance DELIVERED DOSE: Area: Right Pelvis 2000cGy in 5 fractions, 2 Geronimo, 15X with CBCT daily guidance ELAPSED TIME: 6 days. Course 2: DATES OF TREATMENT: 02/08/2025- 02/21/2025 AREA TREATED: Right Shoulder and Right Low Neck DELIVERED DOSE: Area: Right Shoulder and Right Low Neck 3000 cGy in 10 fractions, 3 Arcs, IMRT, 6MVwith daily CBCT TOTAL: 3000cGy in 10 fractions ELAPSED TIME: 13 days. INTERVAL HISTORY: Patient has partial relief in her right shoulder pain. Also significant decreasedpain and mass effect right low neck area. Denies dysphagia. Denies other new areas of concern. ALLERGIES Allergen Reactions Seasonal Allergies Itching MEDICATIONS: sotorasib (LUMAKRAS) 320 mg tablet Take 3 tablets by mouth once daily. levothyroxine (SYNTHROID) 75 mcg tablet Take 1 tablet by mouth once daily. propranolol (INDERAL) 60 mg tablet Propranolol 60 mg tablet Active 60 MG PO Daily at bedtime as needed for tremor(s), anxiety May 31, 2024 1:00am Complies with drug therapy oxyCODONE IR (ROXICODONE) 5 mg immediate release tablet Take 1-2 tablets by mouth every 6 hours as needed for pain for up to 15 days. ondansetron (ZOFRAN) 8 mg tablet Take 1 tablet by mouth every 8 hours as needed for nausea/vomiting. carvedilol (COREG) 3.125 mg tablet Take 3.125 mg by mouth two times a day with meals. empagliflozin (JARDIANCE) 10 mg tablet Take 10 mg by mouth daily with breakfast. torsemide (DEMADEX) 20 mg tablet once daily as needed. gabapentin 300 mg Tb24 Take 300 mg by mouth two times a day. benzonatate (TESSALON PERLES ORAL) Take by mouth as needed. prochlorperazine (COMPAZINE) 10 mg tablet Take 1 [...] 2,000 UNIT CAP Take one(1) tablet daily. REVIEW OF SYSTEMS: See HPI PHYSICAL EXAM: 03/15/25 Weight 78.1 kg (172 lb 2.9 oz) Height 172 cm (5' 7.72 ) BSA 1.93 BMI 26.4 Temp 36.3 C (97.4 F) Pulse 73 Resp 16 BP 110/63 SpO2 96 % KPS: 90 General Appearance: Alert and oriented. No acute distress. HEENT: NCAT. Sclera anicteric. PERRL. EOMI. Neck: Palpable and fixed right lower neck mass decreased size. Mild to moderate hyperpigmentation surrounding skin. No open wounds. Chest: No respiratory distress. Lungs clear to auscultation bilaterally. Heart: Regular rate and rhythm. Abdomen: Soft. Nontender. Nondistended. Musculoskeletal: Some pain to palpation of the right shoulder. Decreased range of motion. No significant skin change overlying strength upper extremities intact Neuro: Speech fluent. Gait normal. No focal deficits. Skin: No rashes noted Lymphatics: No palpable lymphadenopathy. ASSESSMENT/PLAN: Clinically doing fairly well after recent palliative treatment. Her mass in her right neck is responding well. Pain is partially improved in the area of the right shoulder. She continues systemic therapy with sotorasib. Imaging to be coordinated per medical oncology. I will plan to see patient back on an as needed basis, encouraging patient to call should she have questions or concerns. Signed by: Shaka Smart MD cc: Asya Clements Jr (Abigail) [address] [place] [phone] documented in this encounterPromedica [facility] Hospital08-27-2025 Note* Addendum Note - Isaac Gracia MD - 03/15/2025 11:56 AM EDTAddended by: ISAAC GRACIA on: 03/15/2025 11:56 AM Modules accepted: Orders [facility]08-27-2025 Miscellaneous Notes* Addendum Note - Isaac Gracia MD - 03/15/2025 11:56 AM EDTAddended by: ISAAC GRACIA on: 03/15/2025 11:56 AM Modules accepted: Orders documented in this encounterPromedica Bay Park Hospital08-27-2025 Instructions* Patient Instructions* Isaac Gracia MD - 03/15/2025 9:57 AM EDT Ordered PET scan to be done in 3 weeks Continue chemo pills F/u in 4 weeks documented in this encounterPromedica Bay Park Hospital08-27-2025 History of Present illness Narrative* Isaac Gracia MD - 03/15/2025 9:40 AM EDT Images from the original note were not included. PATIENT NAME: Ofe Saravia CLINIC NO.: [id number] ATTENDING PHYSICIAN: Isaac Gracia MD DATE OF SERVICE: 03/15/25 Some of the elements of this note have been copied from my previous progress note dated 02/24/25. Allthe information has been reviewed carefully. CHIEF COMPLAINT: Lung cancer HPI: Ofe Saravia is a 69 year old year old female with PMH of CVA, anxiety. Ms. Saravia first developed right shoulder pain this past April which persisted despite conservative measures. She brought this to the attention of her PCP who ordered an MRI of the right shoulder. The scan was performed on 07/01/2024 which revealed an expansile lesion involving the anterosuperioraspect of the glenoid with extension to the adjacent base of the coracoid process and soft tissues,associated with a displaced pathologic fracture of the [...] studies are pending. She met with Dr. Narayan from rad onc at [facility] who recommended palliative RT closer to home, at [facility]. Venus is a former smoker, having [...] levothryroxine dose. - Dentist declined xgeva clearance Current Outpatient Medications Medication Sig propranolol (INDERAL) 60 mg tablet Propranolol 60 mg tablet Active 60 MG PO Daily at bedtime as needed for tremor(s), anxiety May 31, 2024 1:00am Complies with drug therapy oxyCODONE IR (ROXICODONE) 5 mg immediate release tablet Take 1-2 tablets by mouth every 6 hours as needed for pain for up to 15 days. ondansetron (ZOFRAN) 8 mg tablet Take 1 tablet by mouth every 8 hours as needed for nausea/vomiting. sotorasib (LUMAKRAS) 320 mg tablet Take 3 tablets by mouth once daily. carvedilol (COREG) 3.125 mg tablet Take 3.125 mg by mouth two times a day with meals. empagliflozin (JARDIANCE) 10 mg tablet Take 10 mg by mouth daily with breakfast. torsemide (DEMADEX) 20 mg tablet once daily as needed. gabapentin 300 mg Tb24 Take 300 mg by mouth two times a day. benzonatate (TESSALON PERLES ORAL) Take by mouth as needed. prochlorperazine (COMPAZINE) 10 mg tablet Take 1 tablet by mouth every 6 hours as needed. acetaminophen (TYLENOL) 325 mg tablet Take 325 mg by mouth as needed for pain. levothyroxine (SYNTHROID) 25 mcg tablet Take 25 mcg by mouth once daily. 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 General: Alert and oriented, no distress, pleasant and cooperative. +chronic facial droop Heart: Regular, normal S1 and S2, no murmurs, rubs, or gallops Lungs: Clear to auscultation bilaterally Abdomen: Benign Extremities: Feet/ankles without edema; right upper arm with mild swelling, no erythema LABS: Glucose (mg/dL) Date Value 02/24/2025 99 12/24/2009 157 Potassium (mmol/L) Date Value 02/24/2025 3.9 12/24/2009 4.1 Sodium (mmol/L) Date Value 02/24/2025 139 12/24/2009 140 Chloride (mmol/L) Date Value 02/24/2025 101 12/24/2009 104 CO2 (mmol/L) Date Value 02/24/2025 29 12/24/2009 22 Creatinine (mg/dL) Date Value 02/24/2025 0.47 12/24/2009 0.52 BUN (mg/dL) Date Value 02/24/2025 14 12/24/2009 13 Anion Gap (mmol/L) Date Value 02/24/2025 9 12/24/2009 14 Calcium (mg/dL) Date Value 12/24/2009 9.1 Calcium, Total (mg/dL) Date Value 02/24/2025 9.6 Protein, Total (g/dL) Date Value 02/24/2025 7.2 Albumin (g/dL) Date Value 02/24/2025 3.7 Bilirubin, Total (mg/dL) Date Value 02/24/2025 0.4 Alkaline Phosphatase (U/L) Date Value 02/24/2025 145 AST (U/L) Date Value 02/24/2025 27 ALT (U/L) Date Value 02/24/2025 63 WBC Date Value Ref Range Status 02/24/2025 5.48 3.70 - 11.00 k/uL Final RBC Date Value Ref Range Status 02/24/2025 2.96 (L) 3.90 - 5.20 m/uL Final Hemoglobin Date Value Ref Range Status 02/24/2025 9.4 (L) 11.5 - 15.5 g/dL Final Hematocrit Date Value Ref Range Status 02/24/2025 30.3 (L) 36.0 - 46.0 % Final MCV Date Value Ref Range Status 02/24/2025 102.4 (H) 80.0 - 100.0 fL Final MCH Date Value Ref Range Status 02/24/2025 31.8 26.0 - 34.0 pg Final MCHC Date Value Ref Range Status 02/24/2025 31.0 30.5 - 36.0 g/dL Final RDW-CV Date Value Ref Range Status 02/24/2025 13.1 11.5 - 15.0 % Final Platelet Count Date Value Ref Range Status 02/24/2025 332 150 - 400 k/uL Final MPV Date Value Ref Range Status 02/24/2025 8.7 (L) 9.0 - 12.7 fL Final Abs Neut Date Value Ref Range Status 02/24/2025 4.13 1.45 - 7.50 k/uL Final Lymphocytes % Date Value Ref Range Status 02/24/2025 9.9 % Final Abs Lymph Date Value Ref Range Status 02/24/2025 0.54 (L) 1.00 - 4.00 k/uL Final Monocytes % Date Value Ref Range Status 02/24/2025 9.9 % Final Abs [place] Date Value Ref Range Status 02/24/2025 0.54 <0.87 k/uL Final Eosin% Date Value Ref Range Status 09/22/2024 1.8 % Final Abs Eosin Date Value Ref Range Status 02/24/2025 0.21 <0.46 k/uL Final Basophils % Date Value Ref Range Status 02/24/2025 0.5 % Final Abs Baso Date Value Ref Range Status 02/24/2025 0.03 <0.11 k/uL Final PATH: FINAL DIAGNOSIS A. [...] be excluded. IMAGING: ASSESSMENT AND PLAN: Ofe Saravia is a 69 year old year old [...] on 01/18/25 showed worsening of disease. - We will start her on second line sotorosib chemo pills given the KRAS G12C mutation - Recd radiation to right shoulder and low neck , completed on 02/21/25. Recd 10fx. F/u with rad onc. - MRI brain in January 2025 - normal PLAN: 1. 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 Metastatic cancer to bone (HCC) - ICD9: 198.5, ICD10: C79.51 - Doing well - Started Lumakras on 02/09/25. Continue it. - No side effects with Lumakras. Tolerating well so far without major toxicity. - Dentist has declined clearance for bisphosphonate treatment. Advised her to see another dentist as she was not happy with the previous dentist. - Continue pain meds for shoulder pain. F/u with palliative care - Blood work today is unremarkable. - Anemia secondary to chronic disease. Monitor for now. - Ordered repeat PET scan to be done in 3 weeks - All her questions answered in detail - F/u in 4 weeks. I spent a total of 30 minutes on the date of the service which included preparing to see the patient, sstl-yj-jfgn patient care, completing clinical documentation, performing a medically appropriate examination, counseling and educating the patient/family/caregiver, ordering medications, tests, or p rocedures, independently interpreting results (not separately reported), communicating results to the patient/family/caregiver, and care coordination (not separately reported). Isaac Gracia MD. Hematology and Oncology Services Provided at: [place], [place] CC: documented in this encounterPromedica Bay Park Hospital08-27-2025 NoteMemorial Health System [facility]08-26-2025 NoteMemorial Health System [facility]etta [facility] Hospital08-26-2025 History of Present illness Narrative* Shawna Flores MD, PhD - 03/14/2025 1:23 PM EDT Mrs. Saravia is here today at the request of SELF for my opinion regarding thyroid problem. Reason for visit: Thyroid nodules Radiological imaging with contrast dyes within last 3 months? no Previous laboratory results: Vitamin D 25 Hydroxy (ng/mL) Date Value 07/29/2024 67.6 TSH Date Value 02/24/2025 18.200 mIU/L 01/04/2025 8.370 mIU/L 11/23/2024 2.680 mIU/L 06/29/2021 1.47 IU/ml 03/02/2021 2.21 IU/ml 08/03/2018 1.630 uU/mL Free T4 (ng/dL) Date Value 07/29/2024 1.1 11/12/2021 1.0 08/03/2018 1.2 Free T3 (pg/mL) Date Value 08/03/2018 3.5 THYROID PEROXIDASE ANTIBODY (IU/mL) Date Value 08/03/2018 3.5 Thyroglobulin Ab (IU/mL) Date Value 08/03/2018 4.3 HPI: The patient is a 69-year-old female with stage IV lung cancer and autoimmune thyroiditis, presenting for management of hypothyroidism and follow-up of thyroid nodules. Thyroid Nodules: - Known thyroid nodules, with the largest nodule biopsied in 2018 showing benign findings. - RU extremity US in November 2024 reported 2.7 cm righ tlobe nodules, prompting a recommendation for a thyroid ultrasound. - Patient questions the need for further evaluation given the history of benign biopsy. - Oncologist recommended follow-up with an abrasive grader helper instead of a family doctor for further evaluation. - Last PET scan showed Diffusely increased radiotracer uptake throughout the thyroid gland. Previous FNA: 06/01/2028 FINAL DIAGNOSIS A. THYROID, LEFT LOBE, FINE NEEDLE ASPIRATE(THINPREP, SMEARS, CELL BLOCK) Benign. Benign follicular cells, hurthle cell change, and lymphocytes suggestive of chronic lymphocytic thyroiditis. B. THYROID, RIGHT LOBE, FINE NEEDLE ASPIRATE(THINPREP, SMEARS AND CELL BLOCK) Benign. Benign follicular cells, scant colloid. 04/21/2018 A. THYROID, LEFT LOBE, FINE NEEDLE ASPIRATE(THINPREP, SMEARS AND CELL BLOCK) Limited cellularity. Atypia of undetermined significance. Focal cytologic atypia. Hypothyroidism: - Recent TSH levels elevated to 8.0 Two months ago and 18 Two weeks ago. - Currently taking levothyroxine 0.25 mg daily, with an additional dose on Wednesdays. - Reports significant fatigue. - Has an underlying autoimmune thyroid disorder. Lung Cancer: - Diagnosed with stage IV lung cancer. - Underwent chemotherapy and radiation; currently on targeted therapy with Lumakras. - Completed 10 rounds of radiation on the shoulder and 5 treatments of immunotherapy. - Next PET scan scheduled for the end of March. Neck pressure symptoms. No H/O Thyroid cancer in one or more first degree relatives. No Review of Systems Constitutional: Positive for fatigue and recent unintentional weight change. Negative for night sweats. HENT: Positive for postnasal drip. Negative for trouble swallowing and thyroid pain (lower neck). Eyes: Positive for visual disturbance. Respiratory: Negative for difficulty breathing. Cardiovascular: Positive for leg swelling. Negative for chest pain and claudication. Gastrointestinal: Positive for constipation. Negative for heartburn, nausea, vomiting, abdominal pain and diarrhea. Genitourinary: Positive for amenorrhea. Negative for urgency, frequent urination and slower stream. Musculoskeletal: Positive for myalgias, muscle weakness and bone pain. Skin: Negative for skin color change. Neurological: Positive for dizziness. Negative for headaches and numbness. Endo/Heme/Allergies: Positive for cold intolerance when others are comfortable and heat intolerancewhen others are comfortable. Negative for polydipsia, hot flashes, flushing and changes in body hair. 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 Current Outpatient Medications Medication Sig propranolol (INDERAL) 60 mg tablet Propranolol 60 mg tablet Active 60 MG PO Daily at bedtime as needed for tremor(s), anxiety May 31, 2024 1:00am Complies with drug therapy oxyCODONE IR (ROXICODONE) 5 mg immediate release tablet Take 1-2 tablets by mouth every 6 hours as needed for pain for up to 15 days. ondansetron (ZOFRAN) 8 mg tablet Take 1 tablet by mouth every 8 hours as needed for nausea/vomiting. carvedilol (COREG) 3.125 mg tablet Take 3.125 mg by mouth two times a day with meals. empagliflozin (JARDIANCE) 10 mg tablet Take 10 mg by mouth daily with breakfast. torsemide (DEMADEX) 20 mg tablet once daily as needed. gabapentin 300 mg Tb24 Take 300 mg by mouth two times a day. benzonatate (TESSALON PERLES ORAL) Take by mouth as needed. prochlorperazine (COMPAZINE) 10 mg tablet Take 1 tablet by mouth every 6 hours as needed. acetaminophen (TYLENOL) 325 mg tablet Take 325 mg by mouth as needed for pain. levothyroxine (SYNTHROID) 25 mcg tablet Take 25 mcg by mouth once daily. FLUoxetine (PROZAC) 20 mg capsule Take 40 [...] medications for this visit. Physical Exam BP 95/57 Pulse 72 Wt 78.3 kg (172 lb 9.9 oz) LMP 05/24/2007 SpO2 97% BMI 26.47 kg/m Body mass index is 26.47 kg/m . APPEARANCE: Well appearing, alert, in no acute distress, well-hydrated, well nourished. NECK Supple, no adenopathy. THYROID ~ 30 gms nodular HEART RRR, no JVD appreciated EXTREMITIES No skin discoloration and No edema NEURO Awake, alert and oriented x 3 and No involuntary motions. SKIN color, texture, turgor normal, no rashes or lesions Impression and Recommendations: # Multiple thyroid nodules (E04.2) - Known thyroid nodules, including one previously biopsied in 2018 with benign findings. - No evidence of nodule enlargement on recent imaging; PET scan showed diffuse uptake consistent with autoimmune thyroiditis, not localized to nodules. - Order thyroid ultrasound to assess for any changes since prior imaging. - Explained that most benign nodules remain benign and rarely transform; no current indication for biopsy unless significant changes are seen on ultrasound. # Acquired hypothyroidism (E03.9) - Likely secondary to prior immunotherapy for stage 4 lung cancer, with underlying autoimmune thyroid disorder increasing susceptibility. - Recent TSH elevated to 18; current levothyroxine 25 mcg daily with additional dose on Wednesdays insufficient. - Increase levothyroxine to 75 mcg PO daily. - Educated on proper administration: take on empty stomach in the morning with water, wait 1 hour before eating; may take at bedtime if >=4 hours after last meal. - Advised to monitor for symptoms of over-replacement (e.g., palpitations, insomnia, feeling wired ) and contact if these occur. - Repeat thyroid labs in 6 weeks to reassess and adjust dose as needed. - Follow-up in 6 months to reassess thyroid status and management. Follow up in 6 months Shawna Flores MD, PhD [1] Social History Tobacco Use Smoking status: Former Current packs/day: 0.00 Average packs/day: 1.5 packs/day for 18.0 years (27.0 ttl pk-yrs) Types: Cigarettes Start date: 07/20/1981 Quit date: 07/20/1999 Years since quittin.6 Smokeless tobacco: Never Vaping Use Vaping status: Never Used Substance Use Topics Alcohol use: No Drug use: No Comment: denies tx for drug/alcohol abuse in the past. documented in this encounterPromedica [facility]08-12-2025 Instructions* Patient Instructions* Vincent Estrada APRN.CNP - 02/28/2025 10:46 AM EDT Vincent Estrada CNP Department of Palliative and Supportive Care Palliative Care - Specialty services in symptom management and support For questions or prescription refills, call: [phone] Thursday - Thursday 9AM-5PM TONY Mcdowell, RN - Sound Installation Worker Please call 3-5 days in advance for medication refills Evenings, Weekends, Holidays: [phone] (ask for palliative medicine on-call provider) For appointments, cancellations or reschedule, call: [phone] documented in this encounterPromedica Bay Park Hospital08-12-2025 [facility]08-12-[facility] History of Present illness Narrative* Vincent Estrada APRN.CNP - 02/28/2025 10:10 AM EDT PALLIATIVE MEDICINE PROGRESS NOTE SERVICE DATE: February 28, 2025 IDENTIFICATION AND INTRODUCTION: Ofe Saravia is a 69 year old female This visit took place In Ambulatory [facility] Recording using ambient AI software for draft documentation of the visit was discussed with the patient/authorized players club representative; all questions welcomed and answered. Patient/authorized players club representative agreed to proceed CHIEF COMPLAINT: Neoplasm Pain PERTINENT MEDICAL HISTORY: Ofe Saravia is a 68 year old female with history of metastatic NSCLC (squamous cell carcinoma). Ms. Saravia first developed right shoulder pain this past April which persisted despite conservative measures. She brought this to the attention of her PCP who ordered an MRI of the right shoulder. The scan was performed on 07/01/2024 which revealed an expansile lesion involving the anterosuperior aspect of the glenoid with extension to the adjacent base of the coracoid process and soft tissues, associated with a displaced pathologic fracture of the coracoid process. Further workup with CT CAP revealed a NITISH mass (3.4 x 2.9 x 3.1 cm) with adjacent satellite nodules and redemonstrated the lytic lesion involving the right scapula in addition to a right iliac metastasis Subjective Ofe reports feeling good but not great and is currently managing pain with Tylenol and Advil.Occasionally, patient takes Oxycodone at night if the pain becomes severe, noting that a 10 mg dosewas effective. Patient's appetite has improved, but they are still experiencing weight loss. Patient enjoys smoked brisket and other foods, despite concerns about their nutritional value in relation to cancer. Patient has not experienced constipation, diarrhea, or nausea. REVIEW OF SYSTEMS: Modified ESAS ([place] Symptom Assessment Scale) Information Provided By: Patient Pain: Mild Nausea: None Loss of Appetite: Mild Constipation: None Shortness of Breath: Mild Drowsiness: None Tiredness: Mild Depression: None Anxiety: None Objective PHYSICAL EXAMINATION: [facility] 05/24/2007 General Appearance: No apparent distress Skin: No jaundice and No rash Eyes: Normal and No Icterus HENT: Atraumatic and Oropharnyx clear with moist mucous membranes Neck: Grossly normal, No masses, and No JVD Lungs: Normal effort, no cough CV: Not examined Abdomen: Not examined Musculoskeletal: No edema and No gross deformity Lymphatics: Not examined Neuro: Alert and oriented to time place and person Psych: Well groomed, Affect congruent with mood, and Good eye contact DATA: Diagnostic tests reviewed for today's visit: Most recent labs and imaging results. Creatinine Date Value Ref Range Status 02/24/2025 0.47 (L) 0.58 - 0.96 mg/dL Final Estimated Creatinine Clearance: 126.2 mL/min (A) (based on SCr of 0.47 mg/dL (L)). Opioid Management: Yes Indication for Opioid Prescribing: Cancer related pain ORT-OUD Score: 1 A score of 3 or higher may indicate a higher risk for future development of aberrant drug related behavior or opioid use disorder. Informed consent for chronic opiate therapy obtained and written pain agreement: On file Naloxone offered?: Previously declined, after discussing risks and benefits Course of treatment, patient's response and adherence to the prescribed treatment plan reviewed, including non-pharmacological and non-opioid treatment modalities? Yes Have any complications or exacerbations of the underlying condition causing the pain been reviewed?Yes How much does pain impede patient s ability to engage in work or other purposeful activities, interfere with your activities of daily living, physical activity, or quality of your family life and social activities? Significantly Aberrancies in pain panel? No Any aberrant drug related behaviors since last visit? No Rationale for continuing opioid treatment: Improved comfort and function based on an ongoing functional assessment Benefits of Opioid Therapy outweigh risks: Yes Prescribed Morphine Equivalent Daily Dose (MEDD): Yes > 50 MEDD Yes, I am certified in Hospice and Palliative Care, Hematology, Medical Oncology or Pain Medicine OARRS Checked: PDMP website checked and validated. All prescriptions have been APPROPRIATELY filled. No suspiciousactivity was identified. 02/28/2025 by Vincent Estrada, [employer], [employer]IF[employer] Assessment & Plan 1. Metastatic cancer to bone (HCC) (C79.51) 2. Neoplasm related pain (G89.3) 3. Secondary malignant neoplasm of unspecified site (HCC) (C79.9) - Pain managed with Tylenol, Advil, and oxycodone 5 mg at night as needed; has taken 10 mg on occasion. - Refill oxycodone prescription. - continue gabapentin - Follow-up in 3 months; patient instructed to contact sooner if needed. 4. Chemotherapy-induced nausea (R11.0) - Appetite improving, but still experiencing weight loss. - Refill Zofran ODT prescription. 5. Palliative care by specialist (Z51.5) - reviewed philosphy and services 6. Constipation due to opioid therapy (K59.03) - monitor for OIC 7. Lung mass (R91.8) 8. Chronic obstructive pulmonary disease, unspecified COPD type (HCC) (J44.9) 9. SOB (shortness of breath) (R06.02) - can use oxy for symptom of air hunger Some elements copied from my note on 09/28/24, the elements have been updated and all reflect current decision making from today, 02/28/2025. I spent a total of 35 minutes on the date of the service which included preparing to see the patient, [id number] patient care, completing clinical documentation, obtaining and/or reviewing separately obtained history, performing a medically appropriate examination, counseling and educating the pat ient/family/caregiver, ordering medications, tests, or procedures, communicating with other HCPs (not separately reported), independently interpreting results (not separately reported), communicatingresults to the patient/family/caregiver, and care coordination (not separately reported). Next Visit: 3 Months in-person Palliative Medicine Nurse to do telephonic follow-up: Yes Medical Secretary Receptionist Services: None at this time Referral to Msws: No, not at this time Vincent Estrada NP, [employer] February 28, 2025 10:10 AM This note may have been partially generated using the trend.ly voice recognition system. While every effort was made to correct voice recognition errors, kindly be aware that some errors may occasionally occur. documented in this encounterPromedica Bay Park [facility]08-08-2025 [facility] NoteMem[facility]08-05-2025 History of Present illness Narrative* Shaka Smart MD - 02/21/2025 12:00 AM EDT [facility] Radiation Oncology Department RADIATION ONCOLOGY - COMPLETION NOTE PATIENT: OFE SARAVIA: 1955 DATES OF TREATMENT: 02/08/2025- 02/21/2025 DIAGNOSIS: Stage IV non-small cell lung cancer, 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 AREA TREATED: Right Shoulder and Right Low Neck DELIVERED DOSE: Area: Right Shoulder and Right Low Neck 3000 cGy in 10 fractions, 3 Arcs, IMRT, 6MVwith daily CBCT TOTAL: 3000cGy in 10 fractions ELAPSED TIME: 13 days. CLINICAL SUMMARY: The patient tolerated radiation without acute radiation related issues. The patient was able to complete treatment as intended without break interruption or modification of prescription plan. The disease response will be assessed in clinic. The patient will be seen again in 2 weeks for postradiation follow-up. Staff Physician Elias Smart M.D. / EFREN 54:59 PM documented in this encounterPromedica Bay Park Hospital08-05-2025 NoteMemorial [facility]08-04-2025 Telephone encounter Note* Telephone Encounter - Patricia Gregory RN - 02/20/2025 3:19 PM EDT Spoke w/ pt who reports that she is doing well since starting Sotorasib. Denies any new side effects. Fatigued, but no more than normal. Eating/drinking w/o difficulty. No diarrhea. No skin changes. Verbalizes correct dose and frequency. Denies needs from our office at this time. Will be in this 02/24, for follow up as scheduled. Patricia Gregory RN [facility] Work Phone: 1(559) 875-864708-04-2025 Miscellaneous Notes* Telephone Encounter - Patricia Gregory RN - 02/20/2025 3:19 PM EDT Spoke w/ pt who reports that she is doing well since starting Sotorasib. Denies any new side effects. Fatigued, but no more than normal. Eating/drinking w/o difficulty. No diarrhea. No skin changes. Verbalizes correct dose and frequency. Denies needs from our office at this time. Will be in this 02/24, for follow up as scheduled. Patricia Gregory RN * Telephone Encounter - Ghislaine Thakur RN - 02/16/2025 11:51 AM EDT [facility]AL ANTI-CANCER AGENTS FOLLOW-UP PHONE CALL/VISIT Patient is on cycle 1, week 1, day 6 of Sotorasib for Non-Small Cell Lung Cancer. Call placed to cell phone, mailbox is full. Call placed to home phone. No answer, no option to leave voicemail Ghislaine Thakur RN documented in this encounterPromedica Bay Park Hospital08-04-2025 NoteMem[facility]08-04-2025 History of Present illness Narrative* Shaka Smart MD - 02/20/2025 9:28 AM EDT Radiation Oncology - On Treatment Review (OTR) Note PATIENT NAME: Ofe Saravia PATIENT DIAGNOSIS: Stage IV non-small cell lung cancer, 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 COURSE: palliative AREA TREATED: Right Shoulder and Low neck CURRENT DOSE: 2700 cGy in 9 fx PLANNED DOSE: 3000 cGy in 10 fx SUBJECTIVE: Still with significant pain right shoulder mostly at night. No other new issues. EXAM: 02/20/25 0928 BP: 119/65 Pulse: 76 Resp: 16 SpO2: 97% Weight: 79.8 kg (175 lb 14.8 oz) KPS: 80 General Appearance: Alert and oriented. No acute distress. Neck: Mass appears smaller Radiation dermatitis: Mild erythema. IMAGING/LAB RESULTS: None Treatment chart checked: Yes Patient treatment site reviewed and verified:Yes Port films reviewed and current:Yes Medications started: None ASSESSMENT/PLAN: Patient doing fairly well although still with moderate to significant pain. Chart and imaging reviewed. Continue radiation as outlined. She will follow-up in 2 to 3 weeks. Shehas follow-up with medical oncology on Thursday. Shaka Smart MD documented in this encounterPromedica Bay Park Hospital07-31-2025 Telephone encounter Note * Telephone Encounter - Ghislaine Thakur RN - 02/16/2025 11:51 AM EDT ORAL ANTI-CANCER AGENTS FOLLOW-UP PHONE CALL/VISIT Patient is on cycle 1, week 1, day 6 of Sotorasib for Non-Small Cell Lung Cancer. Call placed to cell phone, mailbox is full. Call placed to home phone. No answer, no option to leave voicemail Ghislaine Thakur RN [facility] Work Phone: [phone] NoteHNO ID: [id number] Author: EMILIA CADET RN Service: ? Author Type: Registered Nurse Type: Progress Notes Filed: 02/13/2025 09:48 Note Text: Status: Post-menopausal. Emilia Cadet RNMemorial Health System [facility]07-28-2025 History of Present illness Narrative* Emilia Cadet RN - 02/13/2025 9:35 AM EDT Status: Post-menopausal. Emilia Cadet RN * Shaka Smart MD - 02/13/2025 9:30 AM EDT Radiation Oncology - On Treatment Review (OTR) Note PATIENT NAME: Ofe Saravia PATIENT DIAGNOSIS: Stage IV non-small cell lung cancer, 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 COURSE: palliative AREA TREATED: Right Shoulder and Low neck CURRENT DOSE: 1200 cGy in 4 fx PLANNED DOSE: 3000 cGy in 10 fx SUBJECTIVE: No change in pain. Denies dysphagia, no other new problems. EXAM: 02/13/25 0934 BP: 108/66 Pulse: 77 Resp: 18 Temp: (!) 35.6 C (96 F) Weight: 79.5 kg (175 lb 4.3 oz) KPS: 80 General Appearance: Alert and oriented. No acute distress. Neck: 4 to 5 cm right low lateral neck mass somewhat fixed no skin changes Radiation dermatitis: No IMAGING/LAB RESULTS: None Treatment chart checked: Yes Patient treatment site reviewed and verified:Yes Port films reviewed and current:Yes Medications started: None ASSESSMENT/PLAN: Patient doing well. Chart and imaging reviewed. Continue radiation as outlined. Shaka Smart MD documented in this encounterPromedica Bay Park Hospital07-28-2025 NoteMemorial [facility]07-25-2025 Telephone encounter Note* Telephone Encounter - Wanda Ogden - 02/10/2025 12:43 PM EDT Patient has been scheduled for labs and RV on 02/24. Patient will be checking in today for radiation at 1 pm and will give patient appointment then. Thanks! Wanda Ogden [facility]07-25-2025 Miscellaneous Notes* Telephone Encounter - Wanda Ogden - 02/10/2025 12:43 PM EDT Patient has been scheduled for labs and RV on 02/24. Patient will be checking in today for radiation at 1 pm and will give patient appointment then. Thanks! Wanda Ogden * Telephone Encounter - Ghislaine Thakur RN - 02/10/2025 11:34 AM EDT Pt will be starting her lumakras today. Please call pt and schedule lab and follow up with Dr Sanderson 2 weeks. Thanks Ghislaine Thakur, RN * Telephone Encounter - Isaac Gracia MD - 02/10/2025 9:54 AM EDT OK fine. Thank you * Telephone Encounter - Jessica Hernández [facility] - 02/10/2025 9:45 AM EDT Venus picked up Lumakras 02/09/25 and will start 02/10/25. Updates: Lumakras script changed to 320 mg tablets d/t availability. Ofe and her acknowledged the change in strength and that she should take 3 tablets by mouth once daily. D/D interaction between Lumakras and primidone reviewed and she informed us that she no longer takes the primidone. Medication list updated. Thank you, Demian Hernández, PharmD, BCOP documented in this encounterPromedica Bay Park Hospital07-25-2025 Telephone encounter Note * Telephone Encounter - Ghislaine Thakur RN - 02/10/2025 11:34 AM EDT Pt will be starting her lumakras today. Please call pt and schedule lab and follow up with Dr Sanderson 2 weeks. Thanks Ghislaine Thakur RN [facility] Work Phone: [phone]) 278-745507-25-2025 Telephone encounter Note* Telephone Encounter - Isaac Gracia MD - 02/10/2025 9:54 AM EDT OK fine. Thank you [facility]07-25-2025 Telephone encounter Note* Telephone Encounter - Jessica Hernández RPh - 02/10/2025 9:45 AM EDT Venus picked up Lumakras 02/09/25 and will start 02/10/25. Updates: Lumakras script changed to 320 mg tablets d/t availability. Ofe and her acknowledged the change in strength and that she should take 3 tablets by mouth once daily. D/D interaction between Lumakras and primidone reviewed and she informed us that she no longer takes the primidone. Medication list updated. Thank you, Demian Hernández PharmD, BCOP [facility]07-23-2025 Miscellaneous Notes* Telephone Encounter - Jessica Hernández RPh - 02/08/2025 4:20 PM EDT [place] opened up today and we were able to obtain one for Venus. Medication will be filled through [facility]. I tried to call Venus, but no answer, sent MC message letting her knowit will be ready 02/09/25 for roll picker or wew can FEDEX to her. The Lumakras 240mg tablets were unavailable. Script was filled for Lumakras 320mg tablets taking 3 tablets once daily. Drug interaction noted b/t Lumakras and primidone: primidone decreases Lumakras effects. Dr Flanagan recommends discontinuing primidone in a separate encounter. Will need to discuss with Venus as to why the primidone was started (tremor or seizure) if it is for seizure she will need to f/u with orderingMD and be tapered off. Demian Hernández PharmD, BCOP * Telephone Encounter - Jessica Hernández RPh - 02/07/2025 1:19 PM EDT Follow up call placed this am. They have all the information they need and I was informed TAT is 48hours. Will notify as soon as we hear something. Demian Hernández PharmD, BCOP * Telephone Encounter - Patricia Gregory RN - 02/07/2025 1:16 PM EDT Pharmacy: Any update on status of free drug approval? Patricia Gregory RN * Telephone Encounter - Dara Danielle - 02/02/2025 11:28 AM EDT Venus's appointments on 02/[address] Flanagan have been canceled Dara Mares PSS * Telephone Encounter - Patricia Gregory, MEKHI - 02/02/2025 10:23 AM EDT Lumakras pending free drug approval. Pt scheduled for follow up w/ Dr Marcos next , 02/09/25. Follow up discussed w/ . orders to postpone follow up until after pt has been taking the medication for at least a week. Pt and spouse notified and agrees w/ plan. Clerical: Please cancel pt's lab and RV on 02/09. Will reschedule once start date of Lumakras has been determined. Pharmacy: Please update on status of free drug approval and delivery when you know. Thanks! Patricia Gregory, MEKHI documented in this encounterPromedica Bay Park Hospital07-23-2025 Telephone encounter Note * Telephone Encounter - Jessica Hernández RPh - 02/08/2025 4:20 PM EDT [place] opened up today and we were able to obtain one for Venus. Medication will be filled through [facility]. I tried to call Venus, but no answer, sent MC message letting her knowit will be ready 02/09/25 for roll picker or wew can FEDEX to her. The Lumakras 240mg tablets were unavailable. Script was filled for Lumakras 320mg tablets taking 3 tablets once daily. Drug interaction noted b/t Lumakras and primidone: primidone decreases Lumakras effects. Dr Flanagan recommends discontinuing primidone in a separate encounter. Will need to discuss with Venus as to why the primidone was started (tremor or seizure) if it is for seizure she will need to f/u with orderingMD and be tapered off. Demian Hernández, PharmD, BCOP [facility] Work Phone: 1(501) 714-934307-23-2025 NoteHNO ID: [id number] Author: ASIA SILVERMAN RN Service: ? Author Type: Registered Nurse Type: Progress Notes Filed: 02/13/2025 12:56 Note Text: Status: Post-menopausal.[facility]07-23-2025 History of Present illness Narrative* Asia Silverman RN - 02/08/2025 3:29 PM EDT Status: Post-menopausal. 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 COURSE: palliative AREA TREATED: Right Shoulder and Low neck CURRENT DOSE: 300 cGy in 1 fx PLANNED DOSE: 3000 cGy in 10 fx SUBJECTIVE: Increased pain right neck. EXAM: 02/08/25 1528 BP: 108/67 Pulse: 84 Resp: 18 Temp: 36.4 C (97.6 F) SpO2: 97% Weight: 79.8 kg (175 lb 14.8 oz) KPS: 80 General Appearance: Alert and oriented. No acute distress. Neck: 4 to 5 cm right low lateral neck mass somewhat fixed no skin changes Radiation dermatitis: No IMAGING/LAB RESULTS: None Treatment chart checked: Yes Patient treatment site reviewed and verified:Yes Port films reviewed and current:Yes Medications started: None ASSESSMENT/PLAN: Patient starting radiation today. Plan of care and expectations again reviewed. Plan, MU calculations and qa report reviewed. Initial imaging including cone beam ct and verification reviewed and approved. First treatment given. Continue radiation as prescribed. Shaka Smart MD documented in this encounterPromedica [facility]07-[facility]-2025 Telephone encounter Note * Telephone Encounter - Isaac Gracia MD - 02/08/2025 3:28 PM EDT OK to stop primidone. Thanks [facility]07-23-2025 Miscellaneous Notes* Telephone Encounter - Isaac Gracia MD - 02/08/2025 3:28 PM EDT OK to stop primidone. Thanks * Telephone Encounter - Jessica Hernández [facility] - 02/08/2025 2:55 PM EDT FYI Title Sotorasib / primidone Summary CY Inducers (Moderate) may decrease serum concentration of Sotorasib. Severity ModerateReliability Rating Intermediate-Low Patient Management Monitor for reduced sotorasib efficacy if combined with moderate CY inducers. CY Inducers (Moderate) Interacting Members Bexarotene (Systemic); Bosentan; Cenobamate; Dabrafenib; Dipyrone; Efavirenz; Elagolix, Estradiol, and Norethindrone; Eslicarbazepine; Etravirine; Fexinidazole; Lorlatinib; Modafinil; Nafcillin; Pexidartinib; PHENobarbital; Primidone; Repotrectinib; Rifabutin; Rifapentine; Sotorasib; Ophelia's Wort Exceptions (agents listed are discussed in separate interaction monograph[s] or are non-interacting) Mitapivat; Pacritinib Discussion No studies have evaluated the effects of moderate CY inducers on sotorasib. However,in a pharmacokinetic study of healthy volunteers (n=14), coadministration of repeated daily doses of the strong CY inducer rifampin decreased the Cmax and AUC of single-dose by sotorasib 35% and 51%, respectively.1 Prescribing information for sotorasib recommends to avoid coadministration with strong CY inducers as the efficacy of sotorasib may be reduced.2 No recommendations are provided for use with moderate CY inducers, but increased monitoring for reduced sotorasib efficacy is likely warranted when these agents are combined. The mechanism of this interaction is induction of CY, an enzyme partly responsible for sotorasib metabolism. documented in this encounterPromedica Bay Park Hospital07-23-2025 NoteMem[facility]07-[facility]25 Telephone encounter Note* Telephone Encounter - Jessica Hernández RPh - 02/08/2025 2:55 PM EDT FYI Title Sotorasib / primidone Summary CY Inducers (Moderate) may decrease serum concentration of Sotorasib. Severity ModerateReliability Rating Intermediate-Low Patient Management Monitor for reduced sotorasib efficacy if combined with moderate CY inducers. CY Inducers (Moderate) Interacting Members Bexarotene (Systemic); Bosentan; Cenobamate; Dabrafenib; Dipyrone; Efavirenz; Elagolix, Estradiol, and Norethindrone; Eslicarbazepine; Etravirine; Fexinidazole; Lorlatinib; Modafinil; Nafcillin; Pexidartinib; PHENobarbital; Primidone; Repotrectinib; Rifabutin; Rifapentine; Sotorasib; Ophelia's Wort Exceptions (agents listed are discussed in separate interaction monograph[s] or are non-interacting) Mitapivat; Pacritinib Discussion No studies have evaluated the effects of moderate CY inducers on sotorasib. However,in a pharmacokinetic study of healthy volunteers (n=14), coadministration of repeated daily doses of the strong CY inducer rifampin decreased the Cmax and AUC of single-dose by sotorasib 35% and 51%, respectively.1 Prescribing information for sotorasib recommends to avoid coadministration with strong CY inducers as the efficacy of sotorasib may be reduced.2 No recommendations are provided for use with moderate CY inducers, but increased monitoring for reduced sotorasib efficacy is likely warranted when these agents are combined. The mechanism of this interaction is induction of CY, an enzyme partly responsible for sotorasib metabolism. [facility]07-22-2025 Telephone encounter Note* Telephone Encounter - Jessica Hernández RPh - 02/07/2025 1:19 PM EDT Follow up call placed this am. They have all the information they need and I was informed TAT is 48hours. Will notify as soon as we hear something. Demian Hernández, PharmD, BCOP [facility]07-22-2025 Telephone encounter Note* Telephone Encounter - Patricia Gregory RN - 02/07/2025 1:16 PM EDT Pharmacy: Any update on status of free drug approval? Patricia Gregory RN [facility] Work Phone: [phone] NoteMem[facility]07-17-2025 History of Present illness Narrative* Danielle Castellon LSW - 02/02/2025 1:12 PM EDT Patient Declined Social Work Information Message from [facility] that Patient was in for oral chemo education and declined services. ERIK Parker documented in this encounterPromedica Bay Park Hospital07-17-2025 NoteMemorial [facility]07-[facility]-20[facility] History of Present illness Narrative* Patricia Gregory RN - 02/02/2025 11:47 AM EDT ORAL ANTI-CANCER AGENTS EDUCATION patient and spouse here today for oral medication education of Sotorasib for Non-Small Cell Lung Cancer Anticipated/Scheduled start date: Pending free drug approval. READINESS TO LEARN Cognitive Ability: Alert and oriented Motivation to Learn: Interested Family Support: High - Very involved in pt care Instruction Provided to: Patient and Spouse Patient learns best by: Multiple Methods Factors affecting learning: None Physical limitation affecting learning: None LANDRY ASSESSMENT: 1.) Verified that patient knows that the oral agents are for cancer and are taken by mouth. Yes 2.) Medication review completed during visit. Yes 3.) Patient is able to swallow pills. Yes 4.) Patient is able to read the drug label/information. Yes 5.) Patient is able to open the medication bottles and packages. Yes - Spouse can help if needed. 6.) Has patient taken other pills for cancer? No 7.) Is patient experiencing any symptoms that would affect their ability to keep down pills, for example nausea or vomiting? No 8.) Verified that patient understands prescription delivery, benefit investigation and refill process. Yes - Celsa F Pharmacist, reviewed free drug application and process w/ pt and pt's spouse. Pt is aware if/when approved that the medication will be shipped directly to her home. Advised the ptto contact her RNCC when notified of approval and drug received, so that we can document a start date and schedule follow up w/ Dr. Pt and spouse verbalizes understanding. DRUG-SPECIFIC EDUCATION: 1.) Verified patient knows the drug name. Yes 2.) Verified patient understands the dose and schedule of oral anti cancer agent. Yes 3.) Verified patient knows what to do if a medication dose is missed. Yes 4.) Verified patient understands where to store the drug. Yes 5.) Verified patient understands potential side effects and how to manage them. Yes 6.)Verified patient understands handling precautions of oral anti cancer agent. Yes 7.) Verified patient was given written instructions and understands when and whom to call with questions. Yes 8.) Verified patient understands where and how to return drug. Yes 9.) Verified patient received drug specific adult education handout and neutropenic wallet card Yes Patient Services reviewed w/ pt and spouse. Pt denies need to meet w/ social work at this time. EVALUATE: The patient and spouse demonstrated an understanding of all the above education using the teach-back method. Yes Instructed to call us with any questions, concerns, and/or unresolved symptoms. Will continue to follow up and provide reinforcement of teaching topics as needed. Patricia Gregory RN documented in this encounterPromedica Bay Park Hospital07-17-2025 Telephone encounter Note * Telephone Encounter - Dara Danielle - 02/02/2025 11:28 AM EDT Venus's appointments on 02/[address] Flanagan have been canceled Dara B PSS [facility]07-17-2025 Telephone encounter Note* Telephone Encounter - Patricia Gregory, RN - 02/02/2025 10:23 AM EDT Lumakras pending free drug approval. Pt scheduled for follow up w/ Dr Marcos next , 02/09/25. Follow up discussed w/ . orders to postpone follow up until after pt has been taking the medication for at least a week. Pt and spouse notified and agrees w/ plan. Clerical: Please cancel pt's lab and RV on 02/09. Will reschedule once start date of Lumakras has been determined. Pharmacy: Please update on status of free drug approval and delivery when you know. Thanks! Patricia Gregory, RN [facility]07-17-2025 History of Present illness Narrative* Celsa Thurman, [facility] - 02/02/2025 10:00 AM EDT Images from the original note were not included. [facility] Department of Pharmacy Oncology Pharmacy Medication Education Patient Name: Ofe Saravia Primary Oncologist: Samia Diagnosis: met NSCLC Ofe Saravia is a 69 year old here with spouse today for medication education for PO sototasib. Drug Interactions: Clinically significant interactions with chemotherapy, immunosuppression, or other standard of caretreatment plan medications anticipated: No. There are no pertinent drug interactions identified. Patient was counseled accordingly. Allergies: Patient confirmed allergies documented in Epic are correct: Yes Was medication education provided?: Yes Medication Education: Administration and schedule: sotorasib (LUMAKRAS) 240 mg tablet 120 tablet 0 01/26/2025 02/25/2025 Sig: Take 4 tablets by mouth once daily. Potential side effects discussed: anemia, arthralgia, bowel habit changes, electrolyte disturbances, fatigue, fluid retention, nausea/vomitting, rash PO chemo: Verified patient understands where to store the drug. Yes Verified that patient understands prescription delivery, benefit investigation and refill process. Yes Was medication reconciliation performed?: Yes Changes made to medication list? Yes The following medications were updated within the home medication list: Medications UPDATED on home medication list: Axcorbic acid daily Benzonatate as needed Fluoxetine 40mg daily Gabapentin BID Torsemide daily as needed Current Outpatient Medications Medication Sig carvedilol (COREG) 3.125 mg tablet Take 3.125 mg by mouth two times a day with meals. empagliflozin (JARDIANCE) 10 mg tablet Take 10 mg by mouth daily with breakfast. sotorasib (LUMAKRAS) 240 mg tablet Take 4 tablets by mouth once daily. primidone (MYSOLINE) 50 mg tablet Take 25-50 mg by mouth daily at bedtime. torsemide (DEMADEX) 20 mg tablet once daily as needed. gabapentin 300 mg Tb24 Take 300 mg by mouth two times a day. benzonatate (TESSALON PERLES ORAL) Take by mouth as needed. prochlorperazine (COMPAZINE) 10 mg tablet Take 1 tablet by mouth every 6 hours as needed. ondansetron (ZOFRAN) 8 mg tablet Take 1 tablet by mouth every 8 hours as needed for nausea/vomiting. acetaminophen (TYLENOL) 325 mg tablet Take 325 mg by mouth as needed for pain. levothyroxine (SYNTHROID) 25 mcg tablet Take 25 mcg by mouth once daily. FLUoxetine (PROZAC) 20 mg capsule Take 40 [...] No current facility-administered medications for this visit. - Chemotherapy education was provided by a pharmacist YES Thank you for allowing us to participate in the care of this patient. I spent 15 time (15 minute increments) with the patient Celsa Savi Thurman documented in this encounterPromedica Bay [facility]07-17-2025 NoteMem[facility]07-17-2025 NoteHNO ID: [id number] Author: Shaka SMART MD Service: ? 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 RADIATION SUMMARY: DATES OF TREATMENT: 08-21-2024 TO 08-31-2024 AREA TREATED: Right Shoulder and Right Pelvis DELIVERED DOSE: Area: Right Shoulder 2000cGy in 5 fractions, 2 Geronimo, 6X & 15X with CBCT daily guidance DELIVERED DOSE: Area: Right Pelvis 2000cGy in 5 fractions, 2 Geronimo, 15X with CBCT daily guidance ELAPSED TIME: 6 days. INTERVAL HISTORY: Patient was diagnosed here after presenting with right shoulder pain. Found to have left lung mass skeletal metastasis. Biopsy showing squamous cell carcinoma, PD-L1 50%. She received perioperative radiation to the right shoulder and right pelvic region. She noted significant improvement in right shoulder and pelvic pain after treatment. She did note a period of hoarseness after her treatment that resolved in September (question after initiation of systemic therapy) She initiated systemic chemotherapy with Taxol carboplatin and Keytruda. She has completed 6 cycles. She has had ongoing right shoulder pain, waxing and waning but mostly worsening. MRI right shoulder 12/22/2024 demonstrating 4 cm metastatic lesion within the glenoid extending into the coracoid process with accompanying extraosseous extension anteriorly. She underwent restaging PET scan as noted below. PET/CT 01/18/2025: IMPRESSION Since FDG PET/CT 11/15/2024, PRIMARY DISEASE SITE: * Interval increase in size and metabolic activity of LEFT upper lobe suprahilar neoplasm. RIO DISEASE: * Interval increase in size and metabolic activity of LEFT hilar regional lymphadenopathy. No evidence of new metabolically active regional lymphadenopathy. METASTATIC DISEASE: * New metabolically active RIGHT glenoid osseous metastases. Additional lytic osseous metastases in the RIGHT scapula and RIGHT iliac bone appears unchanged. * Interval increase in size and metabolic activity of RIGHT lower cervical metastatic lymphadenopathy. (MUSCULOSKELETAL: Bones: * New expansile lytic/destructive metabolically active osseous metastatic lesion along the dorsal superior RIGHT glenoid (Max SUV:17.8; image 75). * Infiltrative lytic RIGHT iliac wing lesion with vague soft tissue component appears grossly unchanged in size or morphology from prior with slightly decreased metabolic activity (Max SUV:2.0, 3.1 on prior; image 240). * Infiltrative lytic expansile ventral RIGHT glenoid osseous metastatic lesion appears unchanged in size and morphology from prior with slightly decreased metabolic activity (Max SUV:2.6, 3.4 on prior; image 73) Soft Tissues: No radiotracer avid lesion.) ADDITIONAL FINDINGS: * Heterogeneously enlarged and hypermetabolic thyroid gland. Correlation with laboratory evidence of thyroid dysfunction and recommend thyroid ultrasound for TI-RADS ultrasound criteria evaluation and further clinical decision support regarding observation versus tissue sampling. Current systemic management plan is to start sotorosib given concern of progression Keytruda. ALLERGIES Allergen Reactions Seasonal Allergies Itching MEDICATIONS: carvedilol (COREG) 3.125 mg tablet Take 3.125 mg by mouth two times a day with meals. empagliflozin (JARDIANCE) 10 mg tablet Take 10 mg by mouth daily with breakfast. sotorasib (LUMAKRAS) 240 mg tablet Take 4 tablets by mouth once daily. primidone (MYSOLINE) 50 mg tablet Take 25-50 mg by mouth daily at bedtime. torsemide (DEMADEX) 20 mg tablet TAKE 1 TABLET BY [facility] EVERY MORNING gabapentin 300 mg Tb24 300 mg. benzonatate (TESSALON PERLES ORAL) Take by mouth. prochlorperazine (COMPAZINE) 10 mg tablet Take 1 tablet by mouth every 6 hours as needed. ondansetron (ZOFRAN) 8 mg tablet Take 1 tablet by mouth every 8 hours as needed for nausea/vomiting. acetaminophen (TYLENOL) 325 mg tablet Take 325 [...] 2,000 UNIT CAP Take one(1) tablet daily. REVIEW OF SYSTEMS: GENERAL: Negative for weight loss, fevers, chills, or night sweats. HEENT: Negative for sudden vision or hearing changes. NECK: Patient states right posterior neck mass has been increasing in size over the last 2 weeks. RESPIRATORY: Negative for cough or shortness of breath. CARDIAC: Negative for chest pain, palpitations, murmurs, or syncopal episodes. GI: Negative for nausea, vomiting, diarrhea, constipation, blood per rectum, or melena. : Negative for dysuria, hematuria, urgency, frequency or incontinence. MUSCULOSKELETAL: Increasing pain right shoulder seems to localize posterior aspect, limited range of motion NEURO: Denies headaches or recent seizures. Persistent left-sided partial hemiparesis secondary to prior CVA HEMATOLOGIC: Negative for bleeding or easy bruising. SKIN: Negative for rashes or other skin changes. PHYSICAL EXAM: 02/02/25 0825 BP: 109/68 BP Site: Left Arm BP Position: Sitting BP Cuff Size: Regular Adult Pulse: 78 Resp: 16 Temp: 36.3 C (97.4 F) TempSrc: Temporal SpO2: 97% Weight: 80.4 kg (177 lb 4 oz) Height: 172 cm (5' 7.72 ) KPS: 90 General Appearance: Alert and oriented. No acute distress. HEENT: NCAT. Sclera anicteric. PERRL. EOMI. Neck: Normal ROM. No palpable cervical or supraclavicular adenopathy. Chest: No respiratory distress. Lungs clear to auscultation bilaterally. Heart: Regular rate and rhythm. Abdomen: Soft. Nontender. Nondistended. Musculoskeletal: No edema. Normal ROM in extremities. No bone or spine tenderness. Neuro: Speech fluent. Alert and oriented x 3 right-sided facial droop left-sided facial weakness left lower extremity Skin: No rashes noted Lymphatics: No palpable lymphadenopathy. 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 Patient unfortunately has progressive disease both within previously irradiated right shoulder region as well as right posterior neck. She is symptomatic from both of these areas. Also multiple otherareas of disease notable progression however with out significant symptomatology. I do feel she would benefit from palliative treatment to the right lateral neck and right shoulder. Discussed the risks of retreatment of the right shoulder. Given the risks and prior treatment recommend IMRT with cone beam CT image guidance. Recommend dose of 30 Simms in 10 fractions. 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 FIXATION DEVICE: In order to achieve accurate and reproducible treatments, the patient is immobilized with THE ORFIT AIO SYSTEM. A CUSTOM VACBAG WAS MADE A time-out was conducted and recorded by the therapist. CT scan was completed for target localization and planning. Field arrangement will be determined after plan has been completed. The patient is scheduled for a verification simulation on the treatment machine to ensure proper set-up and field arrangement is correct prior to the first treatment of primary and boost geronimo if applicable. Patient education will be completed per nursing. Electronically Signed Elias Smart M.D. / KG 59:57 AM documented in this encounterPromedica Bay Park Hospital07-17-2025 History of Present illness Narrative* Shaka Smart MD - 02/02/2025 12:00 AM EDT OFE SARAVIA [id number] 02/02/2025 [facility] [place] [facility] - Department of Radiation Oncology Treatment Planning Note For reasons stated in the consult note, Ofe Saravia is a candidate for radiation therapy. Based onreview and interpretation of the relevant diagnostic studies together with the exam findings, Morris was simulated on 02/02/2025 at which time the target volume and/or requisite geronimo were delineated, as indicated in the simulation note, to be treated according to the prescription. After reviewing the treatment plan with dosimetry /, the plan was approved to deliver the prescribed course of radiation to the target area to allow for the best isodose distribution, treating to the98.2% isodose line with 6MV and 3 geronimo. Custom MLC asym jaws for IMRT were the treatment devices used to shape/modify the beams. Special consideration to these and other structures was given in light of the potential for increased toxicities of re-treatment of a previously irradiated site. IMRT planning was used because it best met the dose/volume constraints for the organs at risk for this patient, better than what could be achieved using conventional or 3D planning. The specific doserequirements for the PTV, organs at risk and dose-volume histograms are contained in this treatmentplan and/or elsewhere in the medical record. A completed summary of this plan dated 02/07/2025 incorporated herein by reference includes dose, beam arrangements, energy, blocking, isodose distribution, and/or ports and DVH. Electronically Signed Elias Smart M.D. :06 PM documented in this encounterPromedica Bay Park Hospital07-17-2025 NoteMemorial Health [facility]07-17-2025 NoteMemorial Health [facility]07-15-2025 Telephone encounter Note* Telephone Encounter - Patricia Gregory RN - 01/31/2025 2:04 PM EDT Pt calls w/ questions regarding the cost of Sotorasib. States she received a My Chart message from the pharmacist. Message reviewed w/ pt and explained in further detail. Pt verbalizes understanding. No additional questions noted. Patricia Gregory RN [facility] Work Phone: [phone] Miscellaneous Notes* Telephone Encounter - Patricia Gregory RN - 01/31/2025 2:04 PM EDT Pt calls w/ questions regarding the cost of Sotorasib. States she received a My Chart message from the pharmacist. Message reviewed w/ pt and explained in further detail. Pt verbalizes understanding. No additional questions noted. Patricia Gregory RN documented in this encounterPromedica Bay Park Hospital07-14-2025 Telephone encounter Note * Telephone Encounter - Dara Danielle - 01/30/2025 2:43 PM EDT Venus is scheduled on 02/02/25 at 10:00 AM for Chemo Education, right after her Simulation Dara B PSS [facility]07-14-2025 Miscellaneous Notes* Telephone Encounter - Dara Danielle - 01/30/2025 2:43 PM EDT Venus is scheduled on 02/02/25 at 10:00 AM for Chemo Education, right after her Simulation Dara B PSS * Telephone Encounter - Patricia Gregory RN - 01/30/2025 1:59 PM EDT Clerical: Please schedule pt for education. Thanks! Patricia Gregory RN * Telephone Encounter - Whit Cordon RPh - 01/30/2025 1:49 PM EDT Denial overturned. Patient co-pay: $1695.45. NSCLC funding is not available at this time. We can begin the free drug process. FYI: I do not see where patient has been scheduled for education yet. Whit Cordon RPh * Telephone Encounter - Whit Cordon RPh - 01/26/2025 1:04 PM EDT Ambulatory Pharmacy Prior Authorization Note Provider Intervention Required?: No - Pharmacy completed on your behalf. Was the PA documented within the ePA workqueue?: Yes Drug: Romario View the status history of the prior authorization in the Auth Tab within Chart Review Additional Information: Denied: Appeal submitted 01/30/25 For questions relating to this submission, please contact [facility] at [phone] documented in this encounterPromedica [facility] Telephone encounter Note * Telephone Encounter - Patricia Gregory RN - 01/30/2025 1:59 PM EDT Clerical: Please schedule pt for education. Thanks! Patricia Gregory RN [facility] Phone: [phone] Telephone encounter Note* Telephone Encounter - Whit Cordon RPh - 01/30/2025 1:49 PM EDT Denial overturned. Patient co-pay: $1695.45. NSCLC funding is not available at this time. We can begin the free drug process. FYI: I do not see where patient has been scheduled for education yet. Whit Cordon RPh [facility]07-11-2025 Telephone encounter Note* Telephone Encounter - Clarissa Cid - 01/27/2025 8:33 AM EDT Scheduled [employer] and notified patient of arrival of 815 [facility]07-11-2025 Miscellaneous Notes* Telephone Encounter - Clarissa Cid - 01/27/2025 8:33 AM EDT Scheduled [employer] and notified patient of arrival of 815 * Telephone Encounter - Catherine Laws RT(R) - 01/27/2025 7:39 AM EDT Sim scheduled for 02/02 9:00am Please schedule Est Pt New Problem with Dr Smart (30 min) at 8:30 Notify patient of appointments and that MARYLIN is out of the office arrival of 8:15 am * Telephone Encounter - Emilia Cadet RN - 01/26/2025 9:[address] Smart reviewed patient's chart and does feel we could consider retreatment of R Shoulder. Please schedule for pt: Est Pt New Problem with Dr Smart (30 min ok)- please let pt know Dr Schreiber is out of the office atthis time. Sim treating R Shoulder Thank you Emilia Cadet, RN documented in this encounterPromedica Bay Park Hospital07-11-2025 Telephone encounter Note * Telephone Encounter - Catherine Laws RT(R) - 01/27/2025 7:39 AM EDT Sim scheduled for 02/02 9:00am Please schedule Est Pt New Problem with Dr Smart (30 min) at 8:30 Notify patient of appointments and that MARYLIN is out of the office arrival of 8:15 am [facility]07-10-2025 Telephone encounter Note* Telephone Encounter - Whit Cordon RPh - 01/26/2025 1:04 PM EDT Ambulatory Pharmacy Prior Authorization Note Provider Intervention Required?: No - Pharmacy completed on your behalf. Was the PA documented within the ePA workqueue?: Yes Drug: Romario View the status history of the prior authorization in the Auth Tab within Chart Review Additional Information: Denied: Appeal submitted 01/30/25 For questions relating to this submission, please contact [facility] at [phone] [facility]07-10-2025 Telephone encounter Note* Telephone Encounter - Emilia Cadet RN - 01/26/2025 9:[address] Smart reviewed patient's chart and does feel we could consider retreatment of R Shoulder. Please schedule for pt: Est Pt New Problem with Dr Smart (30 min ok)- please let pt know Dr Schreiber is out of the office atthis time. Sim treating R Shoulder Thank you Emilia Cadet, RN [facility]07-10-2025 Instructions* Patient Instructions* Isaac Gracia MD - 01/26/2025 8:50 AM EDT Stop immunotherapy treatments We will start her on oral sotorasib Please make an appt with to discuss about radiation F/u in 2 weeks documented in this encounterPromedica Bay Park Hospital07-10-2025 [facility]Mem[facility]07-[facility] History of Present illness Narrative* Isaac Gracia MD - 01/26/2025 8:25 AM EDT Images from the original note were not included. PATIENT NAME: Ofe Saravia CLINIC NO.: [id number] ATTENDING PHYSICIAN: Isaac Gracia MD DATE OF SERVICE: 01/26/25 Some of the elements of this note have been copied from my previous progress note dated 01/04/25. All the information has been reviewed carefully. CHIEF COMPLAINT: Lung cancer HPI: Ofe Saravia is a 69 year old year old female with PMH of CVA, anxiety. Ms. Saravia first developed right shoulder pain this past April which persisted despite conservative measures. She brought this to the attention of her PCP who ordered an MRI of the right shoulder. The scan was performed on 07/01/2024 which revealed an expansile lesion involving the anterosuperioraspect of the glenoid with extension to the adjacent base of the coracoid process and soft tissues,associated with a displaced pathologic fracture of the [...] studies are pending. She met with Dr. Narayan from rad onc at [facility] who recommended palliative RT closer to home, at [facility]. Venus is a former smoker, having [...] C/o fatigue - C/o right shoulder pain. - Current Outpatient Medications Medication Sig carvedilol (COREG) 3.125 mg tablet Take 3.125 mg by mouth two times a day with meals. empagliflozin (JARDIANCE) 10 mg tablet Take 10 mg by mouth daily with breakfast. primidone (MYSOLINE) 50 mg tablet Take 25-50 mg by mouth daily at bedtime. torsemide (DEMADEX) 20 mg tablet TAKE 1 TABLET BY [facility] EVERY MORNING gabapentin 300 mg Tb24 300 mg. benzonatate (TESSALON PERLES ORAL) Take by mouth. prochlorperazine (COMPAZINE) 10 mg tablet Take 1 tablet by mouth every 6 hours as needed. ondansetron (ZOFRAN) 8 mg tablet Take 1 tablet by mouth every 8 hours as needed for nausea/vomiting. acetaminophen (TYLENOL) 325 mg tablet Take 325 [...] 2,000 UNIT CAP Take one(1) tablet daily. albuterol HFA (PROVENTIL HFA, VENTOLIN HFA) 90 mcg/actuation inhaler Inhale 2 Puffs as instructed every 6 hours as needed for wheezing/shortness of breath. naloxone 4 mg/actuation nasal spray (NARCAN) Use 1 spray in one nostril as needed for overdose. Mayrepeat every 2 to 3 min in alternating nostrils until medical assistance is available No current facility-administered medications for this visit. 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 General: Alert and oriented, no distress, pleasant and cooperative. +chronic facial droop Heart: Regular, normal S1 and S2, no murmurs, rubs, or gallops Lungs: Clear to auscultation bilaterally Abdomen: Benign Extremities: Feet/ankles without edema; right upper arm with mild swelling, no erythema LABS: Glucose (mg/dL) Date Value 01/04/2025 108 12/24/2009 157 Potassium (mmol/L) Date Value 01/04/2025 4.6 12/24/2009 4.1 Sodium (mmol/L) Date Value 01/04/2025 142 12/24/2009 140 Chloride (mmol/L) Date Value 01/04/2025 104 12/24/2009 104 CO2 (mmol/L) Date Value 01/04/2025 29 12/24/2009 22 Creatinine (mg/dL) Date Value 01/04/2025 0.48 12/24/2009 0.52 BUN (mg/dL) Date Value 01/04/2025 12 12/24/2009 13 Anion Gap (mmol/L) Date Value 01/04/2025 9 12/24/2009 14 Calcium (mg/dL) Date Value 12/24/2009 9.1 Calcium, Total (mg/dL) Date Value 01/04/2025 9.6 Protein, Total (g/dL) Date Value 01/04/2025 6.5 Albumin (g/dL) Date Value 01/04/2025 4.0 Bilirubin, Total (mg/dL) Date Value 01/04/2025 0.2 Alkaline Phosphatase (U/L) Date Value 01/04/2025 108 AST (U/L) Date Value 01/04/2025 11 ALT (U/L) Date Value 01/04/2025 11 WBC Date Value Ref Range Status 01/04/2025 6.42 3.70 - 11.00 k/uL Final RBC Date Value Ref Range Status 01/04/2025 3.44 (L) 3.90 - 5.20 m/uL Final Hemoglobin Date Value Ref Range Status 01/04/2025 11.6 11.5 - 15.5 g/dL Final Hematocrit Date Value Ref Range Status 01/04/2025 35.3 (L) 36.0 - 46.0 % Final MCV Date Value Ref Range Status 01/04/2025 102.6 (H) 80.0 - 100.0 fL Final MCH Date Value Ref Range Status 01/04/2025 33.7 26.0 - 34.0 pg Final MCHC Date Value Ref Range Status 01/04/2025 32.9 30.5 - 36.0 g/dL Final RDW-CV Date Value Ref Range Status 01/04/2025 15.5 (H) 11.5 - 15.0 % Final Platelet Count Date Value Ref Range Status 01/04/2025 292 150 - 400 k/uL Final MPV Date Value Ref Range Status 01/04/2025 9.0 9.0 - 12.7 fL Final Abs Neut Date Value Ref Range Status 01/04/2025 5.04 1.45 - 7.50 k/uL Final Lymphocytes % Date Value Ref Range Status 01/04/2025 11.7 % Final Abs Lymph Date Value Ref Range Status 01/04/2025 0.75 (L) 1.00 - 4.00 k/uL Final Monocytes % Date Value Ref Range Status 01/04/2025 8.7 % Final Abs [place] Date Value Ref Range Status 01/04/2025 0.56 <0.87 k/uL Final Eosin% Date Value Ref Range Status 09/22/2024 1.8 % Final Abs Eosin Date Value Ref Range Status 01/04/2025 0.03 <0.46 k/uL Final Basophils % Date Value Ref Range Status 01/04/2025 0.3 % Final Abs Baso Date Value Ref Range Status 01/04/2025 <0.03 <0.11 k/uL Final PATH: FINAL DIAGNOSIS [...] be excluded. IMAGING: ASSESSMENT AND PLAN: Ofe Saravia is a 69 year old year old [...] stable 4cm metastatic lesion in the glenoid. PLAN: 1. 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 Metastatic cancer to bone (HCC) - ICD9: 198.5, ICD10: C79.51 - Doing well - Completed cycle 6 keytruda on 01/04/25 - PET scan on 01/18/25 showed worsening of disease. - We will start her on second line sotorosib chemo pills given the KRAS G12C mutation. - Continue pain meds for shoulder pain. - F/u with rad onc to see if she they can do additional radiation to the right shoulder region given the new osseous met. - Ordered MRI brain. - All her questions answered in detail - F/u in 2 weeks. I spent a total of 30 minutes on the date of the service which included preparing to see the patient, [id number] patient care, completing clinical documentation, performing a medically appropriate examination, counseling and educating the patient/family/caregiver, ordering medications, tests, or p rocedures, independently interpreting results (not separately reported), communicating results to the patient/family/caregiver, and care coordination (not separately reported). Isaac Gracia MD. Hematology and Oncology Services Provided at: [place], [place] CC: * Maris Lazo MA - 01/26/2025 8:24 AM EDT Patient does have a sty in her eye she wants to make sure it is nothing else. She would like to know scan results and where do they go from here. She wonders if her shoulder pain is cancer related. Maris Lazo MA documented in this encounterPromedica [facility]07-10-2025 NoteMem[facility]07-09-2025 NoteHNO ID: [id number] Author: CHELSEY LOWERY RN Service: ? Author Type: Registered Nurse Type: Progress Notes Filed: 02/11/2025 11:45 Note Text: Botox 100U with 1ml NaCl Lot [id number] Exp 04/2027[facility]07-09-2025 History of Present illness Narrative* Chelsey Lowery RN - 01/25/2025 10:50 AM EDT Botox 100U with 1ml NaCl Lot [id number] Exp 04/2027 documented in this encounterPromedica Bay Park Hospital07-08-2025 Telephone encounter Note * Telephone Encounter - Stephanie Ruiz MA - 01/24/2025 9:18 AM EDT Patient has an OTV appointment on 01/26. Please place lab orders. Stephanie Ruiz MA [facility]07-08-2025 Miscellaneous Notes* Telephone Encounter - Stephanie Ruiz MA - 01/24/2025 9:18 AM EDT Patient has an OTV appointment on 01/26. Please place lab orders. Stephanie Ruiz MA documented in this encounterPromedica Bay Park Hospital07-07-2025 NoteMemorial [facility]07-07-2025 History of Present illness Narrative* Ghislaine Thakur RN - 01/23/2025 2:42 PM EDT ONCOLOGY PATIENT EDUCATION NOTE TOPIC: Immunotherapy, Medications: cemiplimab (Libtayo) patient called today for education for treatment of Non-Small Cell Lung Cancer Anticipated/Scheduled start date: 01/26/25 READINESS TO LEARN: COGNITIVE ABILITY: Alert and oriented MOTIVATION TO LEARN: Interested FAMILY SUPPORT: High - Very involved in pt care INSTRUCTION PROVIDED TO: Patient INSTRUCTION PROVIDED BY: Nurse Coordinator PATIENT LEARNS BEST BY: Multiple Methods FACTORS AFFECTING LEARNING: None PHYSICAL LIMITATIONS AFFECTING LEARNING: None LEARNING RESPONSE METHOD OF INSTRUCTION: Individual instruction Written instruction/Handouts Verbal instruction PATIENT/FAMILY RESPONSE: Verbalizes understanding of: CHEMOTHERAPY-Regimen, toxicity and side effects INFECTION MANAGEMENT-Signs and symptoms of an infection and importance of contacting the physician MEDICAL REGIMEN-Importance of following prescribed medical regimen MEDICATION PRESCRIBED-Accurate knowledge of prescribed medication prior to discharge MEDICATION ROUTE-Correct route for administration of the prescribed medication MEDICATION SIDE EFFECTS-Side effects associated with the [...] continued instruction and follow up as directed Follow up phone call. Contact information given. SUPPLEMENTAL MATERIAL: Written material was provided at this visit with the following information: - Immunotherapy education was provided by a pharmacist NO - Side effect management information was provided/discussed including but not limited to: abdominaldiscomfort, anemia, appetite changes, arthralgia, bowel habit changes, chest pain, diet, electrolyte disturbances, fatigue, headache, hypersensitivity reaction, infection, kidney toxicity, myalgia, na usea/vomitting, neutropenia, peripheral neuropathy, rash, risk for DVT, shortness of breath, skin changes, taste changes, thrombocytopenia, pneumonitis, gastritis, hepatitis, thyroiditis YES - Provided important phone numbers and contacts during and after hours. YES - Provided information on symptoms that require immediate assistance. YES - Provided Immunotherapy when to call handouts YES - Preventing [...] card and/or magnet. YES - Pt has My [employer] binder in the home from previous treatment. Time Spent: 20 minutes REFERRAL (RECOMMENDATION): N/A Ghislaine Thakur RN documented in this encounterPromedica Bay Park Hospital07-02-2025 History of Present illness Narrative* Shantel Shankar RN - 01/18/2025 8:00 AM EDT Radiology Service Progress Note DATE OF SERVICE: January 18, 2025 TIME: 8:02 AM PATIENT WEIGHT: 186LBS PATIENT IDENTITY VERIFICATION COMPLETED USING TWO (2) [...] EXAM: CT -CONTRAST INDUCED NEPHROPATHY RISK FACTORS: Not applicable CREATININE: Creatinine Date Value Ref Range Status 01/04/2025 0.48 (L) 0.58 - 0.96 mg/dL Final 12/14/2024 0.49 (L) 0.58 - 0.96 mg/dL Final 11/23/2024 0.53 (L) 0.58 - 0.96 mg/dL Final Estimated Glomerular Filtration Rate Date Value Ref Range Status 01/04/2025 103 >=60 mL/min/1.73m Final Comment: Estimated Glomerular Filtration [...] RESULTS: POC done: Yes, See Lab Tab January 18, 2025 TREATMENT: N/A IV SITE: Ambulatory: A peripheral IV was started in the Right antecubital site with a Angio cath: 22 gauge. IV SITE APPEARANCE: Clean,Dry and Intact SIGNATURE: Shantel Shankar RN PATIENT NAME: Ofe Saravia DATE: January 18, 2025 TIME: 8:02 AM * Patricia Lyons RT(R) - 01/18/2025 8:00 AM EDT RADIOLOGY SERVICE PROGRESS NOTE SERVICE DATE: 01/18/2025 SERVICE TIME: 8:23 AM PATIENT IDENTITY VERIFICATION COMPLETED USING TWO (2) STANDARD IDENTIFIERS: Name and Date of confirmed by patient verbally POST EXAM PIV STATUS: Discontinued PROCEDURE TYPE: NM INJECT: PET/CT BODY SCAN. 10.3 mCi F18 FDG. Administered By: . No other medications given.. ADMINISTRATION TIME: 805 PATIENT DISCHARGED TO: Ambulatory patient, left MA department area. Is this a therapy: No A Diagnostic radioactive procedure has taken place, with no further precautions necessary other than routine body substance precautions. More information regarding radiation safety can be found usingthis link: [email or web address] SIGNATURE: RT Isa(Susie) PATIENT NAME: Ofe Saravia DATE: January 18, 2025 TIME: 8:23 AM PAGER/CONTACT #: documented in this encounterPromedica Bay Park Hospital07-02-2025 NoteMem[facility]07-02-2025 NoteMemorial [facility]06-23-2025 Telephone encounter Note* Telephone Encounter - Ghislaine Thakur RN - 01/09/2025 4:07 PM EDT Pt states her PCP manages her thyroid meds for her. Results faxed to Dr Clements and pt states she will call their office to schedule follow up. Ghislaine Thakur RN [facility] Work Phone: [phone] Miscellaneous Notes* Telephone Encounter - Ghislaine Thakur RN - 01/09/2025 4:07 PM EDT Pt states her PCP manages her thyroid meds for her. Results faxed to Dr Clements and pt states she will call their office to schedule follow up. Ghislaine Thakur RN * Telephone Encounter - Ghislaine Thakur RN - 01/05/2025 1:09 PM EDT Attempted to reach pt. Mailbox is full on cell number, no answer/no voicemail set up on home phone number. Will try again later. Ghislaine Thakur RN * Telephone Encounter - Ulisses Baum PA-C - 01/05/2025 10:58 AM EDT Please call and inform patient her labs indicate she her TSH is elevated likely from immunotherapy.Who is managing her hypothyroidism? I see she is on levothyroxine 25 mcg. It will need increased. Ulisses Baum PA-C documented in this encounterPromedica Bay Park Hospital06-19-2025 Telephone encounter Note * Telephone Encounter - Ghislaine Thakur RN - 01/05/2025 1:09 PM EDT Attempted to reach pt. Mailbox is full on cell number, no answer/no voicemail set up on home phone number. Will try again later. Ghislaine Thakur RN [facility]06-19-2025 Telephone encounter Note* Telephone Encounter - Ulisses Baum PA-C - 01/05/2025 10:58 AM EDT Please call and inform patient her labs indicate she her TSH is elevated likely from immunotherapy.Who is managing her hypothyroidism? I see she is on levothyroxine 25 mcg. It will need increased. Ulisses Baum PA-C [facility] Work Phone: [phone] Miscellaneous Notes* Addendum Note - Carmelita Clemente [facility] - 01/04/2025 10:30 AM EDTAddended by: CARMELITA CLEMENTE on: 01/04/2025 01:40 PM Modules accepted: Orders documented in this encounterPromedica Bay Park Hospital06-18-2025 Note* Addendum Note - Carmelita Clemente [facility] - 01/04/2025 10:30 AM EDTAddended by: CARMELITA CLEMENTE on: 01/04/2025 01:40 PM Modules accepted: Orders [facility]06-18-2025 NoteHNO ID: [id number] Author: JOHN DESAI RN Service: ? Author Type: Registered Nurse Type: Progress Notes Filed: 01/04/2025 11:25 Note Text: Will add C6 Carbo taxol to today's treatment per Dr Gracia. John Desai RNMemorial Health System [facility]06-18-2025 History of Present illness Narrative* John Desai RN - 01/04/2025 10:21 AM EDT Will add C6 Carbo taxol to today's treatment per Dr Gracia. John Desai RN documented in this encounterPromedica Bay Park Hospital06-18-2025 Instructions* Patient Instructions* Isaac Gracia MD - 01/04/2025 10:13 AM EDT Treatment today and in 3 weeks Ordered PET scan F/u in 3 weeks documented in this encounterPromedica Bay Park Hospital06-18-2025 History of Present illness Narrative* Isaac Gracia MD - 01/04/2025 10:00 AM EDT Images from the original note were not included. PATIENT NAME: Ofe Saravia [facility] NO.: [id number] ATTENDING PHYSICIAN: Isaac Gracia MD DATE OF SERVICE: 01/04/25 Some of the elements of this note have been copied from Dr. Gracia's previous progress note dated 12/14/24. All the information has been reviewed carefully. CHIEF COMPLAINT: Lung cancer HPI: Ofe Saravia is a 69 year old year old female with PMH of CVA, anxiety. Ms. Saravia first developed right shoulder pain this past April which persisted despite conservative measures. She brought this to the attention of her PCP who ordered an MRI of the right shoulder. The scan was performed on 07/01/2024 which revealed an expansile lesion involving the anterosuperioraspect of the glenoid with extension to the adjacent base of the coracoid process and soft tissues,associated with a displaced pathologic fracture of the [...] studies are pending. She met with Dr. Narayan from rad onc at [facility] who recommended palliative RT closer to home, at [facility]. Venus is a former smoker, having [...] Oxycodone as needed. - MRI shoulder (12/22/24) Current Outpatient Medications Medication Sig primidone (MYSOLINE) 50 mg tablet Take 25-50 mg by mouth daily at bedtime. torsemide (DEMADEX) 20 mg tablet TAKE 1 TABLET BY [facility] EVERY MORNING gabapentin 300 mg Tb24 300 mg. benzonatate (TESSALON PERLES ORAL) Take by mouth. prochlorperazine (COMPAZINE) 10 mg tablet Take 1 [...] 2,000 UNIT CAP Take one(1) tablet daily. albuterol HFA (PROVENTIL HFA, VENTOLIN HFA) 90 mcg/actuation inhaler Inhale 2 Puffs as instructed every 6 hours as needed for wheezing/shortness of breath. No current facility-administered medications for this visit. 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 General: Alert and oriented, no distress, pleasant and cooperative. +chronic facial droop Heart: Regular, normal S1 and S2, no murmurs, rubs, or gallops Lungs: Clear to auscultation bilaterally Abdomen: Benign Extremities: Feet/ankles without edema; right upper arm with mild swelling, no erythema LABS: Glucose (mg/dL) Date Value 01/04/2025 108 12/24/2009 157 Potassium (mmol/L) Date Value 01/04/2025 4.6 12/24/2009 4.1 Sodium (mmol/L) Date Value 01/04/2025 142 12/24/2009 140 Chloride (mmol/L) Date Value 01/04/2025 104 12/24/2009 104 CO2 (mmol/L) Date Value 01/04/2025 29 12/24/2009 22 Creatinine (mg/dL) Date Value 01/04/2025 0.48 12/24/2009 0.52 BUN (mg/dL) Date Value 01/04/2025 12 12/24/2009 13 Anion Gap (mmol/L) Date Value 01/04/2025 9 12/24/2009 14 Calcium (mg/dL) Date Value 12/24/2009 9.1 Calcium, Total (mg/dL) Date Value 01/04/2025 9.6 Protein, Total (g/dL) Date Value 01/04/2025 6.5 Albumin (g/dL) Date Value 01/04/2025 4.0 Bilirubin, Total (mg/dL) Date Value 01/04/2025 0.2 Alkaline Phosphatase (U/L) Date Value 01/04/2025 108 AST (U/L) Date Value 01/04/2025 11 ALT (U/L) Date Value 01/04/2025 11 WBC Date Value Ref Range Status 01/04/2025 6.42 3.70 - 11.00 k/uL Final RBC Date Value Ref Range Status 01/04/2025 3.44 (L) 3.90 - 5.20 m/uL Final Hemoglobin Date Value Ref Range Status 01/04/2025 11.6 11.5 - 15.5 g/dL Final Hematocrit Date Value Ref Range Status 01/04/2025 35.3 (L) 36.0 - 46.0 % Final MCV Date Value Ref Range Status 01/04/2025 102.6 (H) 80.0 - 100.0 fL Final MCH Date Value Ref Range Status 01/04/2025 33.7 26.0 - 34.0 pg Final MCHC Date Value Ref Range Status 01/04/2025 32.9 30.5 - 36.0 g/dL Final RDW-CV Date Value Ref Range Status 01/04/2025 15.5 (H) 11.5 - 15.0 % Final Platelet Count Date Value Ref Range Status 01/04/2025 292 150 - 400 k/uL Final MPV Date Value Ref Range Status 01/04/2025 9.0 9.0 - 12.7 fL Final Abs Neut Date Value Ref Range Status 01/04/2025 5.04 1.45 - 7.50 k/uL Final Lymphocytes % Date Value Ref Range Status 01/04/2025 11.7 % Final Abs Lymph Date Value Ref Range Status 01/04/2025 0.75 (L) 1.00 - 4.00 k/uL Final Monocytes % Date Value Ref Range Status 01/04/2025 8.7 % Final Abs [place] Date Value Ref Range Status 01/04/2025 0.56 <0.87 k/uL Final Eosin% Date Value Ref Range Status 09/22/2024 1.8 % Final Abs Eosin Date Value Ref Range Status 01/04/2025 0.03 <0.46 k/uL Final Basophils % Date Value Ref Range Status 01/04/2025 0.3 % Final Abs Baso Date Value Ref Range Status 01/04/2025 <0.03 <0.11 k/uL Final PATH: FINAL DIAGNOSIS [...] be excluded. IMAGING: ASSESSMENT AND PLAN: Ofe Saravia is a 69 year old year old [...] dental clearance - PET scan on 11/15/24 showed stable to improvement in disease compared to prior CT scans. D/w radiologist Dr.Tamer King. PLAN: 1. 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 Metastatic cancer to bone (HCC) - ICD9: 198.5, ICD10: C79.51 - Doing well - Proceed with cycle 6 keytruda today - Ordered repeat PET scan. - Continue pain meds for shoulder pain. - MRI shoulder on 12/22/24 showed stable 4cm metastatic lesion in the glenoid. - We will change keytruda to cemiplimab from next treatment. - All her questions answered in detail - F/u in 3 weeks. I spent a total of 30 minutes on the date of the service which included preparing to see the patient, [id number] patient care, completing clinical documentation, performing a medically appropriate examination, counseling and educating the patient/family/caregiver, ordering medications, tests, or p rocedures, independently interpreting results (not separately reported), communicating results to the patient/family/caregiver, and care coordination (not separately reported). Isaac Gracia MD. Hematology and Oncology Services Provided at: [place], [place] CC: documented in this encounterCleveland [id number] NoteMemorial Health [facility]06-02-[facility]25 Telephone encounter Note* Telephone Encounter - Ghislaine Thakur RN - 12/19/2024 11:30 AM EDT Results received of right upper arm ultrasound and results show right thyroid nodules measuring up to 2.7 cm noted. Call placed to pt who states her PCP has been monitoring the nodules for years and she's had biopsies done as well in the past. Results faxed to PCP's office. Ghislaine Thakur RN [facility] Work Phone: [phone] Miscellaneous Notes* Telephone Encounter - Ghislaine Thakur RN - [...] office. Ghislaine Thakur RN documented in this encounterPromedica [facility]05-29-2025 Telephone encounter Note * Telephone Encounter - Ghislaine Thakur RN - 12/15/2024 2:53 PM EDT Call received from Vicki at [facility] who states pt's ultrasound was negative for DVT. She has faxed overresults and images were pushed through Ghislaine Thakur RN [facility] Work Phone: [phone] Miscellaneous Notes* Telephone Encounter - Ghislaine Thakur RN - 12/15/2024 2:53 PM EDT Call received from Vicki at [facility] who states pt's ultrasound was negative for DVT. She has faxed overresults and images were pushed through Ghislaine Thakur RN * Telephone Encounter - Ghislaine Thakur RN - 12/15/2024 1:53 PM EDT Call placed to [facility] and message left on their voicemail to call our office as soon aspossible with a verbal read. Ghislaine Thakur RN * Telephone Encounter - Ann Hood - 12/15/2024 9:11 AM EDT No results yet. * Telephone Encounter - Ulisses Baum PA-C - 12/15/2024 9:05 AM EDT Can we get these results please? Ulisses * Telephone Encounter - Wanda Ogden - 12/14/2024 10:58 AM EDT Patient will be having STAT US done today @ [facility]. They are going to work in patient when she gets there after treatment today. Radiology will hold patient and call if results are positive. Wanda Ogden documented in this encounterPromedica [facility]05-29-2025 Telephone encounter Note * Telephone Encounter - Ghislaine Thakur RN - 12/15/2024 1:53 PM EDT Call placed to [facility] and message left on their voicemail to call our office as soon aspossible with a verbal read. Ghislaine Thakur, RN [facility]05-29-2025 Telephone encounter Note* Telephone Encounter - Ann Hood - 12/15/2024 9:11 AM EDT No results yet. [facility]05-29-2025 Telephone encounter Note* Telephone Encounter - Ulisses Baum PA-C - 12/15/2024 9:05 AM EDT Can we get these results please? Ulisses [facility]05-28-2025 Telephone encounter Note* Telephone Encounter - Wanda Ogden - 12/14/2024 10:58 AM EDT Patient will be having STAT US done today @ [facility]. They are going to work in patient when she gets there after treatment today. Radiology will hold patient and call if results are positive. Wanda Ogden [facility]05-28-2025 NoteMemorial [facility]05-28-2025 History of Present illness Narrative* Joyce Bean RN - 12/14/2024 10:46 AM EDT Mg reviewed with MM, please give magnesium sulfate 2gm IV x 1 with tx today. Pharmacy to enter. Joyce Bean RN documented in this encounterPromedica Bay Park Hospital05-28-2025 History of Present illness Narrative* Ulisses Baum PA-C - 12/14/2024 10:00 AM EDT Images from the original note were not included. PATIENT NAME: Ofe Saravia CLINIC NO.: [id number] ATTENDING PHYSICIAN: Isaac Gracia MD DATE OF SERVICE: 12/14/24 Some of the elements of this note have been copied from Dr. Gracia's previous progress note dated 11/23/24. All the information has been reviewed carefully. CHIEF COMPLAINT: Lung cancer HPI: Ofe Saravia is a 69 year old year old female with PMH of CVA, anxiety. Ms. Saravia first developed right shoulder pain this past April which persisted despite conservative measures. She brought this to the attention of her PCP who ordered an MRI of the right shoulder. The scan was performed on 07/01/2024 which revealed an expansile lesion involving the anterosuperioraspect of the glenoid with extension to the adjacent base of the coracoid process and soft tissues,associated with a displaced pathologic fracture of the [...] studies are pending. She met with Dr. Narayan from rad onc at [facility] who recommended palliative RT closer to home, at [facility]. 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 IMAGING: ASSESSMENT AND PLAN: Ofe Saravia is a 69 year old year old [...] which included preparing to see the patient, [id number] patient care, completing clinical documentation, performing a medically appropriate examination, counseling and educating the patient/family/caregiver, ordering medications, tests, or p rocedures, independently interpreting results (not separately reported), communicating results to the patient/family/caregiver, and care coordination (not separately reported). Ulisses Baum PA-C Hematology and Oncology Services Provided at: [place], [place] CC: documented in this encounterPromedica Bay Park [facility]05-28-2025 NoteMemorial [facility]05-07-2025 Instructions* Patient Instructions* Vincent Estrada APRN.SKYLAR - 11/23/2024 1:46 PM EDT Vincent Estrada CNP Department of Palliative and Supportive Care Palliative Care - Specialty services in symptom management and support For questions or prescription refills, call: [phone] Thursday - Thursday 9AM-5PM TONY Mejia, RN - Sound Installation Worker Please call 3-5 days in advance for medication refills Evenings, Weekends, Holidays: [phone] (ask for palliative medicine on-call provider) For appointments, cancellations or reschedule, call: [phone] documented in this encounterPromedica Bay Park Hospital05-07-2025 NoteMemorial [facility]05-07-2025 History of Present illness Narrative* Vincent Estrada APRN.KNIFER UP - 11/23/2024 12:36 PM EDT Images from the original note were not included. PALLIATIVE MEDICINE PROGRESS NOTE SERVICE DATE: 11/23/2024 CHIEF COMPLAINT: Neoplasm Related Pain PERTINENT MEDICAL HISTORY: Ofe Saravia is a 68 year old female with history of metastatic NSCLC (squamous cell carcinoma). Ms. Saravia first developed right shoulder pain this past April which persisted despite conservative measures. She brought this to the attention of her PCP who ordered an MRI of the right shoulder. The scan was performed on 07/01/2024 which revealed an expansile lesion involving the anterosuperior aspect of the glenoid with extension to the adjacent base of the coracoid process and soft tissues, associated with a displaced pathologic fracture of the coracoid process. Further workup with CT CAP revealed a NITISH mass (3.4 x 2.9 x 3.1 cm) with adjacent satellite nodules and redemonstrated the lytic lesion involving the right scapula in addition to a right iliac metastasis Subjective Expand All Collapse All PALLIATIVE MEDICINE PROGRESS NOTE SERVICE DATE: 09/28/2024 CHIEF COMPLAINT: Neoplasm Related Pain PERTINENT MEDICAL HISTORY: Ofe Saravia is a 68 year old female with history of metastatic NSCLC (squamous cell carcinoma). Ms. Saravia first developed right shoulder pain this past April which persisted despite conservative measures. She brought this to the attention of her PCP who ordered an MRI of the right shoulder. The scan was performed on 07/01/2024 which revealed an expansile lesion involving the anterosuperior aspect of the glenoid with extension to the adjacent base of the coracoid process and soft tissues, associated with a displaced pathologic fracture of the coracoid process. Further workup with CT CAP revealed a NITISH mass (3.4 x 2.9 x 3.1 cm) with adjacent satellite nodules and redemonstrated the lytic lesion involving the right scapula in addition to a right iliac metastasis Subjective Met with Ofe and her in clinic, she is alert oriented x 3, demeanor calm and relaxed. Neoplasm related arm pain is much improved she is now using gabapentin and Tylenol, she does have oxycodone left if she needs it but she rarely uses it. Appetite and weight are stable she and her have been enjoying [employer] hunting. No GI or distress. No shortness of breath or edema or nonproductive cough Negative significant emotional, spiritual, or sleep disturbance Modified ESAS ([place] Symptom Assessment Scale) Information Provided By: Patient and Family member Pain: Mild Nausea: None Loss of Appetite: None Constipation: None Shortness of Breath: None Drowsiness: None Tiredness: Mild Depression: None Anxiety: None Objective ECOG PERFORMANCE STATUS: 3- Capable of only limited selfcare, confined to bed/chair > 50% of waking hrs. PHYSICAL EXAMINATION: Vital signs: BP 126/69 Pulse 79 Temp 36.4 C (97.6 F) (Temporal) Resp 16 Ht 172 cm (5' 7.72 ) Wt 86.3 kg (190 lb 4.1 oz) LMP 05/24/2007 SpO2 97% BMI 29.17 kg/m Last 1 Encounter Temp Readings: Date: Temp: Temp Src: 11/23/2024 36.4 C (97.6 F) Temporal Last 1 Encounter Resp Readings: Date: Resp: 11/23/2024 16 Last 1 Encounter Pulse Readings: Date: Pulse: 11/23/2024 79 Last 1 Encounter BP Readings: Date: BP: 11/23/2024 126/69 Physical Exam DATA: Diagnostic tests reviewed for today's visit: Most recent labs and imaging results. Estimated Creatinine Clearance: 116.1 mL/min (A) (based on SCr of 0.53 mg/dL (L)). Opioid Management: No Assessment & Plan (Z51.5) Palliative care by specialist (primary encounter diagnosis) - Reviwed philosophy of palliative medicine - Discussed services offered by Pall Med - Provided support to family (R91.8) Lung mass (C79.51) Metastatic cancer to bone (HCC) (G89.3) Neoplasm related pain T40.2X5A) Constipation due to opioid therapy - continue Tylenol as needed keep 24-hour dose under 3000 mg - Continue gabapentin 200 mg p.o. twice daily - Oxycodone as needed severe pain - Senna S daily, hold for loose stool I spent a total of 35 minutes on the date of the service which included preparing to see the patient, [id number] patient care, completing clinical documentation, obtaining and/or reviewing separately obtained history, performing a medically appropriate examination, counseling and educating the pat ient/family/caregiver, ordering medications, tests, or procedures, communicating with other HCPs (not separately reported), independently interpreting results (not separately reported), communicatingresults to the patient/family/caregiver, and care coordination (not separately reported). Some elements copied from my note on 09/28/24, the elements have been updated and all reflect current decision making from today, 11/23/2024. Existence of Advance Directives: Yes, documentation or copy in medical record Next Visit: 3 Months in person Vincent Estrada NP, SKIVER UPPERS OR LININGS.KNIFER UP November 23, 2024 12:38 PM This note may have been partially generated using the trend.ly voice recognition system. While every effort was made to correct voice recognition errors, kindly be aware that some errors may occasionally occur. documented in this encounterPromedica Bay Park Hospital05-07-2025 Instructions* Patient Instructions* Isaac Gracia MD - 11/23/2024 10:18 AM EDT Treatment today and in 3 weeks Make a follow up appt with palliative care F/u in 3 weeks documented in this encounterPromedica Bay Park Hospital05-07-2025 History of Present illness Narrative* Isaac Gracia MD - 11/23/2024 10:00 AM EDT Images from the original note were not included. PATIENT NAME: Ofe Saravia CLINIC NO.: [id number] ATTENDING PHYSICIAN: Isaac Gracia MD DATE OF SERVICE: 11/23/[address] Sarabjit Crowley [id number] [facility] [id number] thank you for referring Ofe Saravia for an opinion regarding Lung cancer. Some of the elements of this note have been copied from my previous progress note dated 11/02/24. All the information has been reviewed carefully. CHIEF COMPLAINT: Lung cancer HPI: Ofe Saravia is a 68 year old year old female with PMH of CVA, anxiety. Ms. Saravia first developed right shoulder pain this past April which persisted despite conservative measures. She brought this to the attention of her PCP who ordered an MRI of the right shoulder. The scan was performed on 07/01/2024 which revealed an expansile lesion involving the anterosuperioraspect of the glenoid with extension to the adjacent base of the coracoid process and soft tissues,associated with a displaced pathologic fracture of the [...] studies are pending. She met with Dr. Narayan from rad onc at [facility] who recommended palliative RT closer to home, at [facility]. Venus is a former smoker, having [...] - C/o worsening pain in right shoulder. Current Outpatient Medications Medication Sig torsemide (DEMADEX) 20 mg tablet TAKE 1 TABLET BY [facility] EVERY MORNING gabapentin (NEURONTIN) 100 mg capsule [...] every 8 hours as needed for nausea/vomiting. senna-docusate (SENNA-S) 8.6-50 mg per tablet Take 1 tablet by mouth once daily. naloxone 4 mg/actuation nasal spray (NARCAN) Use [...] propranolol (INDERAL) 20 mg tablet as needed. 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 SKIN: Negative for lesions, rash, and itching. HEMATOLOGY/LYMPHOLOGY Negative for prolonged bleeding, bruising easily, and swollen nodes. NEURO: Negative for numbness or tingling of hands/feet. No weakness. PHYSICAL EXAMINATION: LMP 05/24/2007 There were no vitals taken for this visit. Last 3 Encounter Wt Readings: Date: Wt: 08/23/2024 90.7 kg (200 lb) 08/23/2024 92.4 kg (203 lb 11.3 oz) 08/22/2024 91.3 kg (201 lb 4.5 oz) General appearance:ECOG PERFORMANCE STATUS: 3- Capable of only limited selfcare, confined to bed/chair > 50% of waking hrs. Patient in NAD. Skin: Skin color, texture, turgor normal. Eyes: Anicteric sclera. Pupils are equally round and reactive to light. Extraocular movements are intact. Breast: No palpable breast masses. No nipple change or discharge. Lymph Nodes: No cervical, supraclavicular, axillary or inguinal adenopathy. Oropharynx: Lips, mucosa, and tongue normal. Back: No pain to percussion. Negative SLR test Lungs clear to auscultation, No wheezing or rhonchi Heart: RRR without murmur, gallop, or rubs. Abdomen soft, non-tender. No masses, organomegaly Extremities: No deformities. No edema Neuro: Gait and speech normal. Reflexes normal and symmetric. Muscular strength intact. Sensation grossly intact. Rectal: Deferred : Deferred LABS: Glucose (mg/dL) Date Value 11/02/2024 109 12/24/2009 157 Potassium (mmol/L) Date Value 11/02/2024 4.4 12/24/2009 4.1 Sodium (mmol/L) Date Value 11/02/2024 141 12/24/2009 140 Chloride (mmol/L) Date Value 11/02/2024 102 12/24/2009 104 CO2 (mmol/L) Date Value 11/02/2024 28 12/24/2009 22 Creatinine (mg/dL) Date Value 11/02/2024 0.52 12/24/2009 0.52 BUN (mg/dL) Date Value 11/02/2024 16 12/24/2009 13 Anion Gap (mmol/L) Date Value 11/02/2024 11 12/24/2009 14 Calcium (mg/dL) Date Value 12/24/2009 9.1 Calcium, Total (mg/dL) Date Value 11/02/2024 9.9 Protein, Total (g/dL) Date Value 11/02/2024 6.9 Albumin (g/dL) Date Value 11/02/2024 3.9 Bilirubin, Total (mg/dL) Date Value 11/02/2024 0.2 Alkaline Phosphatase (U/L) Date Value 11/02/2024 102 AST (U/L) Date Value 11/02/2024 14 ALT (U/L) Date Value 11/02/2024 15 WBC Date Value Ref Range Status 11/02/2024 6.03 3.70 - 11.00 k/uL Final RBC Date Value Ref Range Status 11/02/2024 3.55 (L) 3.90 - 5.20 m/uL Final Hemoglobin Date Value Ref Range Status 11/02/2024 10.7 (L) 11.5 - 15.5 g/dL Final Hematocrit Date Value Ref Range Status 11/02/2024 34.2 (L) 36.0 - 46.0 % Final MCV Date Value Ref Range Status 11/02/2024 96.3 80.0 - 100.0 fL Final MCH Date Value Ref Range Status 11/02/2024 30.1 26.0 - 34.0 pg Final MCHC Date Value Ref Range Status 11/02/2024 31.3 30.5 - 36.0 g/dL Final RDW-CV Date Value Ref Range Status 11/02/2024 21.3 (H) 11.5 - 15.0 % Final Platelet Count Date Value Ref Range Status 11/02/2024 347 150 - 400 k/uL Final MPV Date Value Ref Range Status 11/02/2024 8.8 (L) 9.0 - 12.7 fL Final Abs Neut Date Value Ref Range Status 11/02/2024 4.35 1.45 - 7.50 k/uL Final Lymphocytes % Date Value Ref Range Status 11/02/2024 12.9 % Final Abs Lymph Date Value Ref Range Status 11/02/2024 0.78 (L) 1.00 - 4.00 k/uL Final Monocytes % Date Value Ref Range Status 11/02/2024 12.3 % Final Abs [place] Date Value Ref Range Status 11/02/2024 0.74 <0.87 k/uL Final Eosin% Date Value Ref Range Status 09/22/2024 1.8 % Final Abs Eosin Date Value Ref Range Status 11/02/2024 0.09 <0.46 k/uL Final Basophils % Date Value Ref Range Status 11/02/2024 0.7 % Final Abs Baso Date Value Ref Range Status 11/02/2024 0.04 <0.11 k/uL Final PATH: FINAL DIAGNOSIS [...] be excluded. IMAGING: ASSESSMENT AND PLAN: Ofe Saravia is a 68 year old year old female referred to [...] Xgeva until the dental clearance PLAN: - Doing well. Side effects are better with 20% dose reduction. - Proceed with cycle 4 chemoimmunotherapy today. - Will continue carbo AUC 4 and Taxol 150mg/m2 due to the side effects and as per pt request. - Pain medications as per the palliative care. - PET scan on 11/15/24 showed stable to improvement in disease compared to prior CT scans. D/w radiologist Dr.Tamer King. - We will continue carbo taxol for a total of 6 cycles and then repeat PET scan. - Blood work today is unremarkable. - All her questions answered in detail - F/u in 3 weeks. Total time spent [address] Sarabjit Crowley [id number] [facility] [id number] thank you for allowing me to participate in Ofe Saravia care, if there are any questions or concerns please do not hesitate to contact me at the number below. Isaac Gracia MD. Hematology and Oncology Services Provided at: [place], [place] CC: documented in this encounterPromedica Bay Park [facility]05-07-2025 NoteMemorial Health System [facility]05-06-2025 History of Present illness Narrative* THAD Rosa - 11/22/2024 1:20 PM EDT Subjective Ofe K Rinner is a 69 y.o. 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/2009 Coordination impairment BRAIN SX - 2009 Degenerative disc disease, cervical 02/08/2010 Degenerative disc disease, lumbar 01/30/2014 Depression ([facility]) 02/09/2008 Dizziness 08/11/2018 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 H/O section H/O eye surgery right; 2006, 2007 Hemangioma 08/09/2009 History of medical problems thyroid Lack of coordination 01/25/2008 Migraine 05/26/2017 Neck pain 08/11/2018 Other disorders of facial nerve 02/09/2008 Panic attacks ([facility]) Sleep disturbance 01/05/2013 Snoring 07/16/2015 Stroke ([facility]) 05/26/2017 Tension type headache 08/11/2018 Trigeminal neuralgia ([facility]) 10/20/2014 Past Surgical History: Procedure Laterality Date [...] cups daily HPI Trigeminal Neuralgia -denies any recent facial pain -hot and sweating has subsided -states she feels pretty stable Migraine -has stopped propranolol -reports it was causing hypotension -denies any migraines -stable Stroke -reports her left leg has improved some from last visit -states she feels she is walking better -drooling from left side of mouth is less frequent -left eye continues to go crazy -reports the jumping of her eye has worsened -denies any speech difficulty -numbness and tingling in her finger tips on her right hand -left sided weakness since her surgery in 2008 -no longer using a cane to ambulate -denies any recent falls Hallucination -denies any recent hallucinations -reports they have completely subsided Tremor -started gabapentin at last visit -states she has not seen an improvement -located on left side of body -reports hand weakness and gripping trouble -notices mostly with activity -worse with anxiety -able to use her right hand when she needs to ROS Review of Systems Constitutional: Positive for fatigue. HENT: Positive for sore throat. Respiratory: Positive for cough. Cardiovascular: Negative. Gastrointestinal: Negative. Musculoskeletal: Positive for gait problem. Neurological: Positive for dizziness, tremors, facial asymmetry and weakness. Psychiatric/Behavioral: Negative for hallucinations. Hematological: Negative. Objective Visit Vitals BP 118/72 Pulse 86 Resp 16 Ht 5' 9 Wt 190 lb SpO2 96% BMI 28.06 kg/m Smoking Status Former BSA 2.05 m Neurological Exam Mental Status Awake, alert and oriented to person, place and time. Memory: MOCA 23/30. Speech is normal. Languageis fluent with no aphasia. Attention and concentration are normal. Fund of knowledge is appropriatefor level of education. 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 LUE Strength deltoid, biceps, triceps, wrist extensors, wrist extensors, wrist flexor, director of manufacturing operations strength 5/5. RLE Strength illopsoas, quadriceps, tibialis anterior, and gastrocnemius strength 5/5. LLE Strength illopsoas, quadriceps, tibialis anterior, and gastrocnemius strength 5/5. Tone Normal tone x4 extremities. Reflexes: RUE biceps reflex 2, brachioradialis reflex 2 LUE biceps reflex 2, brachioradialis reflex 2 RLE knee reflex 2 LLE knee reflex 2 Heart: Regular rate and rhythm Bilateral action tremor in hands, left>right Assessment and Plan Diagnoses and all orders for this visit: AVM (arteriovenous malformation) Patient has history of ruptured AVM requiring surgery in 2008 and then developed stroke during surgery. 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 She previouslyfollowed with Dr. Monterroso at [facility] and neuro ophthalmology. Hypnopompic hallucination History of stroke Patient had been experiencing visual hallucinations manifested as seeing dark shadows of animals and people primarily at night and occasionally in the morning. This has been occurring for about 6 + months and have since resolved. Brain MRI was updated and was nonacute. She does also note infrequentepisodes of confusion and memory difficulties. Due to her history of stroke and AVM, EEG was obtained and was normal. MOCA was 23/30 with 1/5 recall. Neuropsychology evaluation revealed no evidence of neurodegenerative condition. Visual disturbances were thought to be most consistent with hypnopompic hallucinations. Patient was concerned about worsening weakness in her LLE in June 2024. She had updated brain MRI 09/01/2024 with oncology and it was unremarkable. Migraine without aura and without status migrainosus, not intractable (CMS/HCC) History of migraines and treated with propranolol. Stable. Trigeminal neuralgia (CMS/HCC) She has trigeminal neuralgia and previously on neurontin. She has tried botox in the past at [facility]. She currently does not have facial pain. Anxiety disorder She has anxiety and depression with panic attacks. Symptoms are lessened with prozac and propranolol. She did have cardiac work up previously that was negative. Zoloft caused side effect. NEW: Tremor Patient has tremor that is noticeable with action and fluctuates in intensity, primarily in the left hand. She is right handed. She has history of anxiety disorder which affects her symptoms. She wason propranolol previously per PCP and this was stopped due to hypotension. She was on gabapentin inthe past and felt this was helpful. We resumed this at a low dose at last appointment, and she did not have benefit with tremor though it is helping with neuropathic pain. Brain MRI with and without contrast 09/01/2024: negative for metastatic disease. Stable cavernomas Compliance download 01/26/2024-02/24/2024: revealed AHI 4.9, average usage 5 hours and 29 minutes, shows occasional leaks Neuropsychology evaluation 02/02/2024: revealed when focused and attentive, near return to cognitivebaseline estimates aside from some mild struggles with [...] cerebellar hemisphere. There was increased T2 and FLAIRsignal intensity within the medulla anteriorly. Brain MRI with and without contrast 02/2021: Revealed approximately 6mm area of signal alteration inthe posterior aspects of the pontomedullary junction the [...] is probably the right corticospinal region. PLAN Trial Primidone 50mg 1/2 -1 tab PO at bedtime for tremor Continue Gabapentin 100mg PO BID for neuropathic pain and potentially tremor I counseled patient on potential medication side effects Continue following PCP for BP management Patient to follow up with this clinic in 6-8 weeks or sooner for new or worsening symptoms documented in this encounterJohn J. Pershing VA Medical [id number] Telephone encounter Note* Telephone Encounter - Maris Lazo MA - 11/16/2024 1:37 PM EDT Patient has an appt on 11/23/24 for treatment, would you like labs? If so place orders. Maris Lazo MA [facility]04-30-2025 Miscellaneous Notes* Telephone Encounter - Maris Chau MA - 11/16/2024 1:37 PM EDT Patient has an appt on 11/23/24 for treatment, would you like labs? If so place orders. Maris Lazo MA documented in this encounterPromedica [facility]04-29-[facility] History of Present illness Narrative* Shantel Shankar RN - 11/15/2024 8:00 AM EDT Radiology Service Progress Note DATE OF SERVICE: November 15, 2024 TIME: 8:33 AM PATIENT WEIGHT: 189LBS PATIENT IDENTITY VERIFICATION COMPLETED USING TWO (2) [...] EXAM: CT -CONTRAST INDUCED NEPHROPATHY RISK FACTORS: Not applicable CREATININE: Creatinine Date Value Ref Range Status 11/02/2024 0.52 (L) 0.58 - 0.96 mg/dL Final 10/12/2024 0.52 (L) 0.58 - 0.96 mg/dL Final 09/22/2024 0.52 (L) 0.58 - 0.96 mg/dL Final Estimated Glomerular Filtration Rate Date Value Ref Range Status 11/02/2024 101 >=60 mL/min/1.73m Final Comment: Estimated Glomerular Filtration [...] RESULTS: POC done: Yes, See Lab Tab November 15, 2024 TREATMENT: N/A IV SITE: Ambulatory: A peripheral IV was started in the Right antecubital site with a Angio cath: 22 gauge. IV SITE APPEARANCE: Clean,Dry and Intact SIGNATURE: Shantel Shankar RN PATIENT NAME: Ofe Saravia DATE: November 15, 2024 TIME: 8:33 AM * Patricia Lyons, RT(R) - 11/15/2024 8:00 AM EDT RADIOLOGY SERVICE PROGRESS NOTE SERVICE DATE: 11/15/2024 SERVICE TIME: 9:14 AM PATIENT IDENTITY VERIFICATION COMPLETED USING TWO (2) STANDARD IDENTIFIERS: Name and Date of confirmed by patient verbally POST EXAM PIV STATUS: Discontinued PROCEDURE TYPE: NM INJECT: PET/CT BODY SCAN. 10.8 mCi F18 FDG. No other medications given.. ADMINISTRATION TIME: 810 PATIENT DISCHARGED TO: Ambulatory patient, left MA department area. Is this a therapy: No A Diagnostic radioactive procedure has taken place, with no further precautions necessary other than routine body substance precautions. More information regarding radiation safety can be found usingthis link: [email or web address] SIGNATURE: RT Isa(R) PATIENT NAME: Ofe Saravia DATE: November 15, 2024 TIME: 9:14 AM PAGER/CONTACT #: documented in this encounterPromedica Bay [facility]04-29-2025 [facility]Mem[facility]04-29-2025 NoteMem[facility]04-22-2025 Radiology Diagnostic study [facility] [place] [address] [place] [address] Ultrasound Report Signed Patient: Ofe Saravia MR#: [id number] : 1955 Acct:[id number] Age/Sex: 69 / F ADM Date: 5 Loc: Room: Type: [facility] Attending Dr: Asya Clements JR, DO Ordering Provider: Asya Clements Jr, DO Date of Service: 11/08/24 US/US venous duplex LE BI: R60.0 Copies to: Asya Clements Jr, DO~ BILATERAL LOWER EXTREMITY VENOUS DUPLEX INDICATION: Bilateral lower extremity edema. PROCEDURE: Color-flow duplex scanning is used to interrogate the deep venous system of the right and left lower extremities. The common femoral vein, femoral vein and popliteal vein show good compressibility with normal proximal and distal augmentation. The calf veins are compressible. US/US venous duplex LE BI IMPRESSION: NO EVIDENCE FOR DEEP VEIN THROMBOSIS OR PROXIMAL SUPERFICIAL THROMBOPHLEBITIS INTHE RIGHT OR LEFT LOWER EXTREMITY. Impression dictated by: David Mcclain MD11/08/2024 2:01 PM Dictation Location: [place] [address] Tech: Vicki Wade Transcribed By: COLETTE 11/08/241400 Dictated By: David Mcclain MD 11/08/241400 Signed By: 11/08/24 140 [facility] Work Phone: [phone] 380-868204-16-2025 Instructions* Patient Instructions* Isaac Gracia MD - 11/02/2024 9:09 AM EDT Treatment today and in 3 weeks Ordered PET scan F/u in 3 weeks documented in this encounterPromedica [facility]04-16-2025 History of Present illness Narrative* Isaac Gracia MD - 11/02/2024 9:00 AM EDT Images from the original note were not included. PATIENT NAME: Ofe Saravia [facility] NO.: [id number] ATTENDING PHYSICIAN: Isaac Gracia MD DATE OF SERVICE: 11/02/24. Dear Dr. Sarabjit Crowley [address] [facility] [id number] thank you for referring Ofe Saravia for an opinion regarding Lung cancer. Some of the elements of this note have been copied from Christy Bowers previous progress note dated October 12, 2024 All the information has been reviewed carefully. CHIEF COMPLAINT: Lung cancer HPI: Ofe Saravia is a 68 year old year old female with PMH of CVA, anxiety. Ms. Saravia first developed right shoulder pain this past April which persisted despite conservative measures. She brought this to the attention of her PCP who ordered an MRI of the right shoulder. The scan was performed on 07/01/2024 which revealed an expansile lesion involving the anterosuperioraspect of the glenoid with extension to the adjacent base of the coracoid process and soft tissues,associated with a displaced pathologic fracture of the [...] studies are pending. She met with Dr. Narayan from rad onc at [facility] who recommended palliative RT closer to home, at [facility]. Venus is a former smoker, having [...] shoulder pain. - Hip pain is resolved. Current Outpatient Medications Medication Sig benzonatate (TESSALON PERLES ORAL) Take by mouth. morphine SR (MS CONTIN) 15 mg 12 hr tablet Take 1 tablet by mouth two times a day for 30 days. (Patient not taking: Reported on 10/12/2024) albuterol HFA (PROVENTIL HFA, VENTOLIN HFA) 90 mcg/actuation inhaler Inhale 2 Puffs as instructed every 6 hours as needed for wheezing/shortness of breath. doxycycline hyclate (VIBRAMYCIN) 100 mg capsule prochlorperazine (COMPAZINE) 10 mg tablet Take 1 tablet by mouth every 6 hours as needed. ondansetron (ZOFRAN) 8 mg tablet Take 1 tablet by mouth every 8 hours as needed for nausea/vomiting. senna-docusate (SENNA-S) 8.6-50 mg per tablet Take 1 tablet by mouth once daily. naloxone 4 mg/actuation nasal spray (NARCAN) Use 1 spray in one nostril as needed for overdose. Mayrepeat every 2 to 3 min in alternating nostrils until medical assistance is available acetaminophen (TYLENOL) 325 mg tablet Take 325 mg by mouth as needed for pain. hydroCHLOROthiazide 25 mg tablet Take 1 tablet by mouth every afternoon. levothyroxine (SYNTHROID) 25 mcg tablet Take 25 mcg by mouth once daily. FLUoxetine (PROZAC) 20 mg capsule Take 20 mg by mouth once daily. ezetimibe (ZETIA) 10 mg tablet Take 10 mg by mouth once daily. propranolol (INDERAL) 20 mg tablet as needed. 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 SKIN: Negative for lesions, rash, and itching. HEMATOLOGY/LYMPHOLOGY Negative for prolonged bleeding, bruising easily, and swollen nodes. NEURO: Negative for numbness or tingling of hands/feet. No weakness. PHYSICAL EXAMINATION: LMP 05/24/2007 There were no vitals taken for this visit. Last 3 Encounter Wt Readings: Date: Wt: 08/23/2024 90.7 kg (200 lb) 08/23/2024 92.4 kg (203 lb 11.3 oz) 08/22/2024 91.3 kg (201 lb 4.5 oz) General appearance:ECOG PERFORMANCE STATUS: 3- Capable of only limited selfcare, confined to bed/chair > 50% of waking hrs. Patient in NAD. Skin: Skin color, texture, turgor normal. Eyes: Anicteric sclera. Pupils are equally round and reactive to light. Extraocular movements are intact. Breast: No palpable breast masses. No nipple change or discharge. Lymph Nodes: No cervical, supraclavicular, axillary or inguinal adenopathy. Oropharynx: Lips, mucosa, and tongue normal. Back: No pain to percussion. Negative SLR test Lungs clear to auscultation, No wheezing or rhonchi Heart: RRR without murmur, gallop, or rubs. Abdomen soft, non-tender. No masses, organomegaly Extremities: No deformities. No edema Neuro: Gait and speech normal. Reflexes normal and symmetric. Muscular strength intact. Sensation grossly intact. Rectal: Deferred : Deferred LABS: Glucose (mg/dL) Date Value 10/12/2024 127 12/24/2009 157 Potassium (mmol/L) Date Value 10/12/2024 4.1 12/24/2009 4.1 Sodium (mmol/L) Date Value 10/12/2024 135 12/24/2009 140 Chloride (mmol/L) Date Value 10/12/2024 97 12/24/2009 104 CO2 (mmol/L) Date Value 10/12/2024 26 12/24/2009 22 Creatinine (mg/dL) Date Value 10/12/2024 0.52 12/24/2009 0.52 BUN (mg/dL) Date Value 10/12/2024 13 12/24/2009 13 Anion Gap (mmol/L) Date Value 10/12/2024 12 12/24/2009 14 Calcium (mg/dL) Date Value 12/24/2009 9.1 Calcium, Total (mg/dL) Date Value 10/12/2024 9.1 Protein, Total (g/dL) Date Value 10/12/2024 7.1 Albumin (g/dL) Date Value 10/12/2024 3.5 Bilirubin, Total (mg/dL) Date Value 10/12/2024 0.5 Alkaline Phosphatase (U/L) Date Value 10/12/2024 121 AST (U/L) Date Value 10/12/2024 15 ALT (U/L) Date Value 10/12/2024 33 WBC Date Value Ref Range Status 10/12/2024 14.36 (H) 3.70 - 11.00 k/uL Final RBC Date Value Ref Range Status 10/12/2024 3.42 (L) 3.90 - 5.20 m/uL Final Hemoglobin Date Value Ref Range Status 10/12/2024 9.9 (L) 11.5 - 15.5 g/dL Final Hematocrit Date Value Ref Range Status 10/12/2024 30.8 (L) 36.0 - 46.0 % Final MCV Date Value Ref Range Status 10/12/2024 90.1 80.0 - 100.0 fL Final MCH Date Value Ref Range Status 10/12/2024 28.9 26.0 - 34.0 pg Final MCHC Date Value Ref Range Status 10/12/2024 32.1 30.5 - 36.0 g/dL Final RDW-CV Date Value Ref Range Status 10/12/2024 17.8 (H) 11.5 - 15.0 % Final Platelet Count Date Value Ref Range Status 10/12/2024 422 (H) 150 - 400 k/uL Final MPV Date Value Ref Range Status 10/12/2024 8.9 (L) 9.0 - 12.7 fL Final Abs Neut Date Value Ref Range Status 10/12/2024 12.23 (H) 1.45 - 7.50 k/uL Final Lymphocytes % Date Value Ref Range Status 10/12/2024 5.0 % Final Abs Lymph Date Value Ref Range Status 10/12/2024 0.72 (L) 1.00 - 4.00 k/uL Final Monocytes % Date Value Ref Range Status 10/12/2024 7.2 % Final Abs [place] Date Value Ref Range Status 10/12/2024 1.03 (H) <0.87 k/uL Final Eosin% Date Value Ref Range Status 09/22/2024 1.8 % Final Abs Eosin Date Value Ref Range Status 10/12/2024 0.25 <0.46 k/uL Final Basophils % Date Value Ref Range Status 10/12/2024 0.5 % Final Abs Baso Date Value Ref Range Status 10/12/2024 0.07 <0.11 k/uL Final PATH: FINAL DIAGNOSIS A. [...] be excluded. IMAGING: ASSESSMENT AND PLAN: Ofe Saravia is a 68 year old year old female referred to [...] and a TP53 hotspot alterations are detected. PLAN: - C/o fatigue, dizziness and neurological side effects. - Proceed with cycle 3 chemoimmunotherapy today. - Will decrease carbo to AUC 4 and Taxol to 150mg/m2 due to the side effects and as per pt request. - Hold off on Xgeva until the dental clearance. - Pain medications as per the palliative care. - Ordered PET scan for re-staging. - Blood work today is unremarkable. - All her questions answered in detail - F/u in [address] Sarabjit Crowley [address] [facility] [id number] thank you for allowing me to participate in Ofe Saravia care, if there are any questions or concerns please do not hesitate to contact me at the number below. Isaac Gracia MD. Hematology and Oncology Services Provided at: [place], [place] CC: documented in this encounterPromedica [facility]04-16-2025 NoteMem[facility]04-16-2025 Telephone encounter Note* Telephone Encounter - Isaac Gracia MD - 11/02/2024 8:27 AM EDT I ordered labs. Thanks [facility]04-16-2025 Miscellaneous Notes* Telephone Encounter - Isaac Gracia MD - 11/02/2024 8:27 AM EDT I ordered labs. Thanks * Telephone Encounter - Asia Silverman RN - 11/02/2024 8:22 AM EDT Venus is scheduled for chemo today with no lab orders. Please place orders vinnie. Thanks Asia Silverman RN documented in this encounterPromedica Bay [facility]04-16-2025 Telephone encounter Note * Telephone Encounter - Asia Silverman RN - 11/02/2024 8:22 AM EDT Venus is scheduled for chemo today with no lab orders. Please place orders vinnie. Thanks Asia Silverman RN [facility]03-26-2025 NoteMemorial [facility]03-26-2025 History of Present illness Narrative* Danielle Castellon LSW - 10/12/2024 11:13 AM EDT SOCIAL WORK FOLLOW UP NOTE: [facility] Date of service:10/12/24 Ofe Saravia is being seen for a follow up social work visit. Today's visit includes: patient TOPICS ADDRESSED: coping/support PLAN: Continue follow up as needed Assigned SW listed in Care Team tab: Yes SW met with Patient in the infusion room. SW briefly explained the role of an Oncology SW. Patient denied any immediate psychosocial needs. Patient shared that she was feeling tired from the [place] would like to rest. SW will remain available and will follow up as appropriate. Goals of Care Advance Directives are on file. Maximino is the DPOA-CH agent. ERIK Parker documented in this encounterPromedica Bay Park Hospital03-26-2025 NoteMemorial Health [facility]03-26-2025 History of Present illness Narrative* Ann-Marie Gomez APRN.KNIFER UP - 10/12/2024 9:18 AM EDT Images from the original note were not included. PATIENT NAME: Ofe Saravia CLINIC NO.: [id number] ATTENDING PHYSICIAN: Isaac Gracia MD DATE OF SERVICE: .10/12/2024 (Christy). Dear Dr. Sarabjit Crowley [address] [facility] [id number] thank you for referring Ofe Saravia for an opinion regarding Lung cancer. Some of the elements of this note have been copied from my previous progress note dated September 14, 2024 All the information has been reviewed carefully. CHIEF COMPLAINT: Lung cancer HPI: Ofe Saravia is a 68 year old year old female with PMH of CVA, anxiety. Ms. Saravia first developed right shoulder pain this past April which persisted despite conservative measures. She brought this to the attention of her PCP who ordered an MRI of the right shoulder. The scan was performed on 07/01/2024 which revealed an expansile lesion involving the anterosuperioraspect of the glenoid with extension to the adjacent base of the coracoid process and soft tissues,associated with a displaced pathologic fracture of the [...] studies are pending. She met with Dr. Narayan from rad onc at [facility] who recommended palliative RT closer to home, at [facility]. Venus is a former smoker, having [...] - Did not find etiology for fever. Current Outpatient Medications Medication Sig benzonatate (TESSALON PERLES ORAL) Take by mouth. albuterol HFA (PROVENTIL HFA, VENTOLIN HFA) 90 mcg/actuation inhaler Inhale 2 Puffs as instructed every 6 hours as needed for wheezing/shortness of breath. doxycycline hyclate (VIBRAMYCIN) 100 mg capsule prochlorperazine (COMPAZINE) 10 mg tablet Take 1 tablet by mouth every 6 hours as needed. ondansetron (ZOFRAN) 8 mg tablet Take 1 tablet by mouth every 8 hours as needed for nausea/vomiting. senna-docusate (SENNA-S) 8.6-50 mg per tablet Take 1 tablet by mouth once daily. naloxone 4 mg/actuation nasal spray (NARCAN) Use 1 spray in one nostril as needed for overdose. Mayrepeat every 2 to 3 min in alternating nostrils until medical assistance is available acetaminophen (TYLENOL) 325 mg tablet Take 325 mg by mouth as needed for pain. hydroCHLOROthiazide 25 mg tablet Take 1 tablet by mouth every afternoon. levothyroxine (SYNTHROID) 25 mcg tablet Take 25 mcg by mouth once daily. FLUoxetine (PROZAC) 20 mg capsule Take 20 mg by mouth once daily. ezetimibe (ZETIA) 10 mg tablet Take 10 mg by mouth once daily. propranolol (INDERAL) 20 mg tablet as needed. vitamin b complex tab Take 1 tablet by mouth once daily. ASCORBIC ACID (VITAMIN C ORAL) Take by mouth. Magnesium Oxide-Mg Amino Acid Chelate 300 mg cap Take 300 mg by mouth daily at bedtime. CHOLECALCIFEROL (VITAMIN D3) 2,000 UNIT CAP Take one(1) tablet daily. traMADol (ULTRAM) 50 mg tablet Take 1 tablet by mouth every 4 hours as needed for pain for up to 7 days. morphine SR (MS CONTIN) 15 mg 12 hr tablet Take 1 tablet by mouth two times a day for 30 days. (Patient not taking: Reported on 10/12/2024) No current facility-administered medications for this visit. Facility-Administered Medications Ordered in Other Visits Medication Dose Route Frequency pegfilgrastim-cbqv 6 mg wearable injection (UDENYCA ONBODY) 6 mg SUBCUTANEOUS ONCE PACLitaxel 360 mg in NaCl 0.9% 600 mL (TAXOL) 175 mg/m2 (Treatment Plan Recorded) INTRAVENOUS ONCE NaCl 0.9% iv infusion 500-999 mL/hr INTRAVENOUS PRN diphenhydrAMINE 50 mg injection (BENADRYL) 50 mg INTRAVENOUS PRN hydrocortisone sodium succinate (PF) 100 mg injection (Solu-CORTEF) 100 mg INTRAVENOUS PRN EPINEPHrine 1 mg/mL (1 mL) 0.3 mg injection 0.3 mg INTRAMUSCULAR PRN sodium chloride 0.9 % (flush) 10-20 mL (BD POSIFLUSH) 10-20 mL INTRAVENOUS PRN CARBOplatin 694 mg in NaCl 0.9% 344.4 mL (PARAPLATIN) 694 mg INTRAVENOUS ONCE ALLERGIES Allergen Reactions Seasonal Allergies Itching PAST MEDICAL HISTORY Diagnosis Date Anxiety state, unspecified 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 SKIN: Negative for lesions, rash, and itching. HEMATOLOGY/LYMPHOLOGY Negative for prolonged bleeding, bruising easily, and swollen nodes. NEURO: Negative for numbness or tingling of hands/feet. No weakness. PHYSICAL EXAMINATION: BP 114/54 Pulse 100 Temp 36.3 C (97.3 F) (Temporal) Resp 16 Ht 172 cm (5' 7.72 ) Wt 85.9 kg (189 lb 6 oz) LMP 05/24/2007 SpO2 96% BMI 29.04 kg/m There were no vitals taken for this visit. Last 3 Encounter Wt Readings: Date: Wt: 08/23/2024 90.7 kg (200 lb) 08/23/2024 92.4 kg (203 lb 11.3 oz) 08/22/2024 91.3 kg (201 lb 4.5 oz) General appearance:ECOG PERFORMANCE STATUS: 3- Capable of only limited selfcare, confined to bed/chair > 50% of waking hrs. Patient in NAD. Skin: Skin color, texture, turgor normal. Eyes: Anicteric sclera. Pupils are equally round and reactive to light. Extraocular movements are intact. Breast: No palpable breast masses. No nipple change or discharge. Lymph Nodes: No cervical, supraclavicular, axillary or inguinal adenopathy. Oropharynx: Lips, mucosa, and tongue normal. Back: No pain to percussion. Negative SLR test Lungs clear to auscultation, No wheezing or rhonchi Heart: RRR without murmur, gallop, or rubs. Abdomen soft, non-tender. No masses, organomegaly Extremities: No deformities. No edema Neuro: Gait and speech normal. Reflexes normal and symmetric. Muscular strength intact. Sensation grossly intact. Rectal: Deferred : Deferred LABS: Glucose (mg/dL) Date Value 10/12/2024 127 12/24/2009 157 Potassium (mmol/L) Date Value 10/12/2024 4.1 12/24/2009 4.1 Sodium (mmol/L) Date Value 10/12/2024 135 12/24/2009 140 Chloride (mmol/L) Date Value 10/12/2024 97 12/24/2009 104 CO2 (mmol/L) Date Value 10/12/2024 26 12/24/2009 22 Creatinine (mg/dL) Date Value 10/12/2024 0.52 12/24/2009 0.52 BUN (mg/dL) Date Value 10/12/2024 13 12/24/2009 13 Anion Gap (mmol/L) Date Value 10/12/2024 12 12/24/2009 14 Calcium (mg/dL) Date Value 12/24/2009 9.1 Calcium, Total (mg/dL) Date Value 10/12/2024 9.1 Protein, Total (g/dL) Date Value 10/12/2024 7.1 Albumin (g/dL) Date Value 10/12/2024 3.5 Bilirubin, Total (mg/dL) Date Value 10/12/2024 0.5 Alkaline Phosphatase (U/L) Date Value 10/12/2024 121 AST (U/L) Date Value 10/12/2024 15 ALT (U/L) Date Value 10/12/2024 33 WBC Date Value Ref Range Status 10/12/2024 14.36 (H) 3.70 - 11.00 k/uL Final RBC Date Value Ref Range Status 10/12/2024 3.42 (L) 3.90 - 5.20 m/uL Final Hemoglobin Date Value Ref Range Status 10/12/2024 9.9 (L) 11.5 - 15.5 g/dL Final Hematocrit Date Value Ref Range Status 10/12/2024 30.8 (L) 36.0 - 46.0 % Final MCV Date Value Ref Range Status 10/12/2024 90.1 80.0 - 100.0 fL Final MCH Date Value Ref Range Status 10/12/2024 28.9 26.0 - 34.0 pg Final MCHC Date Value Ref Range Status 10/12/2024 32.1 30.5 - 36.0 g/dL Final RDW-CV Date Value Ref Range Status 10/12/2024 17.8 (H) 11.5 - 15.0 % Final Platelet Count Date Value Ref Range Status 10/12/2024 422 (H) 150 - 400 k/uL Final MPV Date Value Ref Range Status 10/12/2024 8.9 (L) 9.0 - 12.7 fL Final Abs Neut Date Value Ref Range Status 10/12/2024 12.23 (H) 1.45 - 7.50 k/uL Final Lymphocytes % Date Value Ref Range Status 10/12/2024 5.0 % Final Abs Lymph Date Value Ref Range Status 10/12/2024 0.72 (L) 1.00 - 4.00 k/uL Final Monocytes % Date Value Ref Range Status 10/12/2024 7.2 % Final Abs [place] Date Value Ref Range Status 10/12/2024 1.03 (H) <0.87 k/uL Final Eosin% Date Value Ref Range Status 09/22/2024 1.8 % Final Abs Eosin Date Value Ref Range Status 10/12/2024 0.25 <0.46 k/uL Final Basophils % Date Value Ref Range Status 10/12/2024 0.5 % Final Abs Baso Date Value Ref Range Status 10/12/2024 0.07 <0.11 k/uL Final PATH: FINAL DIAGNOSIS A. [...] be excluded. IMAGING: ASSESSMENT AND PLAN: Ofe Saravia is a 68 year old year old female referred to us for metastatic squamous cell lung cancer. H/o CVA. CT chest abdomen pelvis showed left upper lobe mass, enlarged AP window lymph node and lytic lesions at the right scapula and the right iliac bone. -Right shoulder soft tissue biopsy showed metastatic carcinoma with squamous differentiation of lung origin PLAN: - Hospitalized from 09/07-09/13/24 with gen weakness, fatigue and fever. - Completed 5 fractions of radiation to the right scapula and the right iliac bone on 08/31/24. - MRI brain on 09/01/24 is normal. - PD-L1 TPS - 50%. AP mol results pending - Proceed with Cycle 2 Carbo AUC 5, Taxol 175mg/m2 due to her age and performance status. -RTC in 3 weeks for C3D1 - Advised her to get dental clearance for bisphosphonate therapy. - saw her dentist - does not recommend XGEVA due to multiple teeth problems. - Pain medications as per the palliative care - Monitor the anemia for now. - Advised her to increase the salt intake for hyponatremia. - All her questions answered in detail Dear Dr. Sarabjit Crowley 1984 [facility] [id number] thank you for allowing me to participate in Ofe Saravia care, if there are any questions or concerns please do not hesitate to contact me at the number below. . Ann-Marie Gomez APRN, [employer], [facility] Provided at: [place], [place] CC: documented in this encounterPromedica Bay [facility]03-24-2025 History of Present illness Narrative* THAD Rosa - 10/10/2024 12:40 PM EDT Subjective Ofe Saravia is a 69 y.o. 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 Coordination impairment BRAIN SX - 2009 Degenerative disc disease, cervical 02/08/2010 Degenerative disc disease, lumbar 01/30/2014 Depression ([facility]) 02/09/2008 Dizziness 08/11/2018 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 H/O section H/O eye surgery right; 2006, 2008 Hemangioma 08/09/2009 History of medical problems thyroid Lack of coordination 01/25/2008 Migraine ([facility]) 05/26/2017 Neck pain 08/11/2018 Other disorders of facial nerve 02/09/2008 Panic attacks ([facility]) Sleep disturbance 01/05/2013 Snoring 07/16/2015 Stroke ([facility]) 05/26/2017 Tension type headache 08/11/2018 Trigeminal neuralgia ([facility]) 10/20/2014 Past Surgical History: Procedure Laterality Date [...] cups daily HPI Trigeminal Neuralgia -denies any recent facial pain -hot and sweating has subsided -states she feels pretty stable Migraine -on Propranolol -denies any migraines -stable Stroke -states she was concerned she may have had stroke in June -reports she did not go to be evaluated -states she woke up and was not able to use her left leg -throughout the day she noticed she was starting to drool out the left side of mouth -drooling continues, denies any worsening -left eye continues to go crazy -reports the jumping of her eye has worsened -denies any speech difficulty -numbness and tingling in her finger tips on her right hand -left sided weakness since her surgery in 2008 -ambulates with cane -admits recent falls -she notes she had a brain MRI with oncology in Aug 2024 Hallucination -denies any recent hallucinations -reports they have completely subsided NEW: Tremor -reports tremor in her extremities and hands -been occurring on and off for a while, worsening in the past several months -states she is on propranolol and PCP increased this -she does notice sometimes a lower blood pressure -states she was on gabapentin in the past and this helped the tremor and nerve pain -interested in getting back on this ROS Review of Systems Constitutional: Positive for fatigue. HENT: Positive for sore throat. Respiratory: Positive for cough. Cardiovascular: Negative. Gastrointestinal: Negative. Musculoskeletal: Positive for gait problem. Neurological: Positive for dizziness, tremors, facial asymmetry and weakness. Psychiatric/Behavioral: Negative for hallucinations. Hematological: Negative. Objective Visit Vitals BP 130/68 Pulse 106 Resp 16 Ht 5' 9 Wt 189 lb SpO2 92% BMI 27.91 kg/m Smoking Status Former BSA 2.04 m Neurological Exam Mental Status Awake, alert and oriented to person, place and time. Memory: MOCA 23/30. Speech is normal. Languageis fluent with no aphasia. Attention and concentration are normal. Fund of knowledge is appropriatefor level of education. 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 LUE Strength deltoid, biceps, triceps, wrist extensors, wrist extensors, wrist flexor, director of manufacturing operations strength 5/5. RLE Strength illopsoas, quadriceps, tibialis anterior, and gastrocnemius strength 5/5. LLE Strength illopsoas, quadriceps, tibialis anterior, and gastrocnemius strength 5/5. Tone Normal tone x4 extremities. Reflexes: RUE biceps reflex 2, brachioradialis reflex 2 LUE biceps reflex 2, brachioradialis reflex 2 RLE knee reflex 2 LLE knee reflex 2 Heart: Regular rate and rhythm Bilateral action tremor in hands, left>right Assessment and Plan Diagnoses and all orders for this visit: AVM (arteriovenous malformation) Patient has history of ruptured AVM requiring surgery in 2008 and then developed stroke during surgery. 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 She previouslyfollowed with Dr. Monterroso at [facility] and neuro ophthalmology. Hypnopompic hallucination History of stroke Patient had been experiencing visual hallucinations manifested as seeing dark shadows of animals and people primarily at night and occasionally in the morning. This has been occurring for about 6 + months and have resolved. Brain MRI was updated and was nonacute. She does also note infrequent episodes of confusion and memory difficulties. Due to her history of stroke and AVM, EEG was obtained andwas normal. MOCA was 23/30 with 1/5 recall. Neuropsychology evaluation revealed no evidence of neurodegenerative condition. Visual disturbances were thought to be most consistent with hypnopompic hallucinations. Patient was concerned about worsening weakness in her LLE in June 2024. She had updated brain MRI 09/01/2024 with oncology and it was unremarkable. Migraine without aura and without status migrainosus, not intractable (CMS/HCC) History of migraines and treated with propranolol. At baseline. Trigeminal neuralgia (CMS/HCC) She has trigeminal neuralgia and previously on neurontin. She has tried botox in the past at [facility]. She weaned gabapentin but feels her tremor has worsened without the medication. Anxiety disorder She has anxiety and depression with panic attacks. Symptoms are lessened with prozac and propranolol. She did have cardiac work up previously that was negative. Zoloft caused side effect. NEW: Tremor Patient has tremor that is noticeable with action and fluctuates in intensity. She has history of anxiety disorder which affects her symptoms. She is on propranolol and has been increased by her PCP.She would like to avoid adjusting this due to occasional lower blood pressure readings. She was on gabapentin in the past and felt this was helpful. Brain MRI with and without contrast 09/01/2024: negative for metastatic disease. Stable cavernomas Compliance download 01/26/2024-02/24/2024: revealed AHI 4.9, average usage 5 hours and 29 minutes, shows occasional leaks Neuropsychology evaluation 02/02/2024: revealed when focused and attentive, near return to cognitivebaseline estimates aside from some mild struggles with [...] cerebellar hemisphere. There was increased T2 and FLAIRsignal intensity within the medulla anteriorly. Brain MRI with and without contrast 02/2021: Revealed approximately 6mm area of signal alteration inthe posterior aspects of the pontomedullary junction the [...] is probably the right corticospinal region. PLAN Trial Gabapentin 100mg PO BID for tremor I reviewed brain MRI from [facility] 09/01/2024 Continue propranolol 60mg PO at bedtime for anxiety, headache prevention, and tremor per PCP I counseled patient on potential medication side effects Continue following PCP for BP management Patient to follow up with this clinic in 6-8 weeks or sooner for new or worsening symptoms documented in this encounterJohn J. Pershing VA Medical [phone] NoteMemorial Health System [facility]03-17-[facility] History of Present illness Narrative* Juan C Schreiber MD - 10/03/2024 11:18 PM EDT Radiation Oncology - On Treatment Review (OTR) Note PATIENT NAME: Ofe Saravia PATIENT DIAGNOSIS: Ms. Saravia is a 69-year-old woman recently diagnosed with stage IV non-small cell lung cancer with painful skeletal metastases to the right scapula/shoulder and the right hip/pelvis. COURSE: palliative AREA TREATED: Right Shoulder, Right Pelvis CURRENT DOSE: 2000 cGy in 5 fx PLANNED DOSE: 2000 cGy in 5 fx SUBJECTIVE: Tolerating XRT well and feels that her hip and shoulder plan are slightly better and rates the pain today at 5/10 and managed with pain medication. She denies any diarrhea or nausea. EXAM: KPS: 70 General Appearance: Alert and oriented. No acute distress. Radiation dermatitis: No IMAGING/LAB RESULTS: None Treatment chart checked: Yes Patient treatment site reviewed and verified:Yes Port films reviewed and current:Yes Medications started: None ASSESSMENT/PLAN: Clinically stable. Toxicity within expected parameters. Continue radiation treatment as planned. Juan C Schreiber MD * Asia Silverman RN - 08/31/2024 2:55 PM EST Status: Post-menopausal. documented in this encounterPromedica [facility]03-14-2025 Telephone encounter Note * Telephone Encounter - Jazmyne Bryson RN - 09/30/2024 1:19 PM EDT Phone call to patient. Let her know Jihan CHENG has sent small rx for Ativan for Panic and she may take1 every 12 hours as needed for her panic symptoms and to further follow up with PCP when able. Let her know the script was sent to her [facility] in [place]. Reinforced CURRENT treatment education based on current and anticipated symptoms Teach back method performed: YES Patient verbalizes when to seek medical attention for new/worsening symptoms. Office and on-call numbers reviewed with patient. Jazmyne Bryson RN September 30, 2024 1:21 PM [facility]03-14-2025 Miscellaneous Notes* Telephone Encounter - Jazmyne Bryson RN - 09/30/2024 1:19 PM EDT Phone call to patient. Let her know Jihan CHENG has sent small rx for Ativan for Panic and she may take1 every 12 hours as needed for her panic symptoms and to further follow up with PCP when able. Let her know the script was sent to her [facility] in [place]. Reinforced CURRENT treatment education based on current and anticipated symptoms Teach back method performed: YES Patient verbalizes when to seek medical attention for new/worsening symptoms. Office and on-call numbers reviewed with patient. Jazmyne Bryson RN September 30, 2024 1:21 PM * Addendum Note - Vincent Estrada APRN.CNP - 09/30/2024 12:56 PM EDT Addended by: VINCENT ESTRADA on: 09/30/2024 12:56 PM Modules accepted: Orders * Telephone Encounter - Vincent Estrada APRN.CNP - 09/30/2024 12:55 PM EDT I sent a small rx for Ativan for Panic, she can take 1 every 12 hours prn panic and follow up with PCP when able Sent to [facility] in [place] * Telephone Encounter - Jazmyne Bryson RN - 09/30/2024 9:05 AM EDT Care Coordination Triage Note [facility] [place] Situation: Patient reports having recent claustrophobic/panic feeling about couple days ago. Background: Metastatic cancer to bone Constipation due to opioid therapy, Lung mass,Neoplasm related pain, Anorexia,Chronic obstructive pulmonary disease, unspecified COPD type (HCC) SOB (shortness of breath) Assessment: Patient reports a feeling of claustrophobic almost panicky feelings. She felt this before when taking pain medications. She reports not taking any morphine yesterday and has not been taking the oxycodone but still today feels the same. She is on Prozac 20 mg daily for anxiety being managed by her PCP. Advised she reach out to her PCP. She reports they are closed today and no provider covering. They just tell her to go to the ED. Discussed with patient that stopping her recommended pain regimen could cause a pain crisis and this is concerning. She understands but not sure what to do since it's the weekend. She denies feeling bad enough to go to the ED. She has never has counseling in the past for this. Patient wondering if going up on the Prozac would help but unsure what is truly causing these feelings. Recommendations: Per Nurse, patient directed to: Manage at home. Instructions provided. Will send to Vincent Sweeney CNP to review and advise. Jazmyne Bryson RN September 30, 2024 9:05 AM * Telephone Encounter - Eneida Javier V - 09/30/2024 8:52 AM EDT Patient has been experiencing severe panic attacks. Return call to [phone] documented in this encounterPromedica Bay [facility] Hospital03-14-2025 Note* Addendum Note - Vincent Estrada APRN.CNP - 09/30/2024 12:56 PM EDTAddended by: VINCENT ESTRADA on: 09/30/2024 12:56 PM Modules accepted: Orders [facility]03-14-20[facility] Telephone encounter Note* Telephone Encounter - Vincent Estrada APRN.CNP - 09/30/2024 12:55 PM EDT I sent a small rx for Ativan for Panic, she can take 1 every 12 hours prn panic and follow up with PCP when able Sent to [facility] in [place] [facility]03-14-[facility] Telephone encounter Note* Telephone Encounter - Jazmyne Bryson RN - 09/30/2024 9:05 AM EDT Care Coordination Triage Note [facility] [place] Situation: Patient reports having recent claustrophobic/panic feeling about couple days ago. Background: Metastatic cancer to bone Constipation due to opioid therapy, Lung mass,Neoplasm related pain, Anorexia,Chronic obstructive pulmonary disease, unspecified COPD type (HCC) SOB (shortness of breath) Assessment: Patient reports a feeling of claustrophobic almost panicky feelings. She felt this before when taking pain medications. She reports not taking any morphine yesterday and has not been taking the oxycodone but still today feels the same. She is on Prozac 20 mg daily for anxiety being managed by her PCP. Advised she reach out to her PCP. She reports they are closed today and no provider covering. They just tell her to go to the ED. Discussed with patient that stopping her recommended pain regimen could cause a pain crisis and this is concerning. She understands but not sure what to do since it's the weekend. She denies feeling bad enough to go to the ED. She has never has counseling in the past for this. Patient wondering if going up on the Prozac would help but unsure what is truly causing these feelings. Recommendations: Per Nurse, patient directed to: Manage at home. Instructions provided. Will send to Vincent Sweeney CNP to review and advise. Jazmnye Bryosn RN September 30, 2024 9:05 AM [facility]03-14-[facility] Telephone encounter Note* Telephone Encounter - Eneida Javier V - 09/30/2024 8:52 AM EDT Patient has been experiencing severe panic attacks. Return call to [phone] [facility]03-13-2025 NoteMemorial Health System [facility]03-13-2025 History of Present illness Narrative* Danielle Castellon LSW - 09/29/2024 1:41 PM EDT Patient's name appears on the [facility] First Time Treatment List (3 week lookback). MARCOS was unable toreach Patient by phone. MARCOS will plan to meet with Patient at a future visit to review the services offered by this [facility]. ERIK Parker Goals of Care Advance Directives are on file. Maximino Saravia () is the agent. documented in this encounterPromedica Bay [facility]03-11-2025 Telephone encounter Note * Telephone Encounter - Tiffanie Rangel MA - 09/27/2024 11:19 AM EDT Patient coming in Thursday10/12/24 for treatment visit. Please add lab orders, Tiffanie demarco MA [facility]03-11-2025 Miscellaneous Notes* Telephone Encounter - Tiffanie Rangel MA - 09/27/2024 11:19 AM EDT Patient coming in Thursday10/12/24 for treatment visit. Please add lab orders, Tiffanie demarco MA documented in this encounterPromedica Bay Park Hospital03-07-2025 Instructions* Patient Instructions* Vincent Estrada APRN.CNP - 2024 11:27 AM EST Vincent Estrada CNP Department of Palliative and Supportive Care Palliative Care - Specialty services in symptom management and support For questions or prescription refills, call: [phone] Thursday - Thursday 9AM-5PM TONY Mejia, RN - Sound Installation Worker Please call 3-5 days in advance for medication refills Evenings, Weekends, Holidays: [phone] (ask for palliative medicine on-call provider) For appointments, cancellations or reschedule, call: [phone] documented in this encounterPromedica Bay [facility] Hospital03-07-2025 History of Present illness Narrative* Vincent Estrada APRN.CNP - 2024 11:00 AM EST PALLIATIVE MEDICINE PROGRESS NOTE SERVICE DATE: 09/28/2024 CHIEF COMPLAINT: Neoplasm Related Pain PERTINENT MEDICAL HISTORY: Ofe Saravia is a 68 year old female with history of metastatic NSCLC (squamous cell carcinoma). Ms. Saravia first developed right shoulder pain this past April which persisted despite conservative measures. She brought this to the attention of her PCP who ordered an MRI of the right shoulder. The scan was performed on 07/01/2024 which revealed an expansile lesion involving the anterosuperior aspect of the glenoid with extension to the adjacent base of the coracoid process and soft tissues, associated with a displaced pathologic fracture of the coracoid process. Further workup with CT CAP revealed a NITISH mass (3.4 x 2.9 x 3.1 cm) with adjacent satellite nodules and redemonstrated the lytic lesion involving the right scapula in addition to a right iliac metastasis Subjective She reports ongoing pain in the right shoulder/arm and hip. The hip pain is limiting her ability toambulate, practically making her wheelchair-bound. Will be starting palliative radiation. Using 10 mg of oxycodone every 4 hours, having significant end of dose pain. Pain described as an ache. Positive constipation, last BM three days ago, using stool softener. Appetite is poor the last few days since she has been constipated, no nausea. No shortness of breath or edema or nonproductive cough Negative significant emotional, spiritual, or sleep disturbance Modified ESAS ([place] Symptom Assessment Scale) Information Provided By: Patient and Family member Pain: Mild Nausea: Mild Loss of Appetite: Mild Constipation: Mild Shortness of Breath: Mild Drowsiness: None Tiredness: None Depression: None Anxiety: None Objective ECOG PERFORMANCE STATUS: 3- Capable of only limited selfcare, confined to bed/chair > 50% of waking hrs. PHYSICAL EXAMINATION: Vital signs: BP 98/63 Pulse 69 Temp 36.6 C (97.9 F) (Temporal) Resp 18 LMP 05/24/2007 SpO2 94% Last 1 Encounter Temp Readings: Date: Temp: Temp Src: 2024 36.6 C (97.9 F) Temporal Last 1 Encounter Resp Readings: Date: Resp: 2024 18 Last 1 Encounter Pulse Readings: Date: Pulse: 2024 69 Last 1 Encounter BP Readings: Date: BP: 2024 98/63 Physical Exam Constitutional: Appearance: She is well-groomed. HENT: Head: Normocephalic and atraumatic. Jaw: There is normal jaw occlusion. Right Ear: Hearing and external ear normal. Left Ear: Hearing and external ear normal. Nose: Nose normal. Mouth/Throat: Lips: [place]. Mouth: Mucous membranes are moist. No oral lesions. Eyes: General: Lids are normal. Gaze aligned appropriately. Extraocular Movements: Extraocular movements intact. Conjunctiva/sclera: Conjunctivae normal. Neck: Thyroid: No thyroid mass. Pulmonary: Effort: Pulmonary effort is normal. Musculoskeletal: General: No swelling, tenderness or deformity. Normal range of motion. Right shoulder: Normal. Left shoulder: Normal. Right upper arm: Normal. Left upper arm: Normal. Cervical back: Full passive range of motion without pain. Right lower leg: No edema. Left lower leg: No edema. Skin: General: Skin is warm and dry. Capillary Refill: Capillary refill takes less than 2 seconds. Findings: No rash. Neurological: General: No focal deficit present. Mental Status: She is alert and oriented to person, place, and time. Psychiatric: Attention and Perception: Attention normal. Mood and Affect: Mood normal. Speech: Speech normal. Behavior: Behavior normal. Behavior is cooperative. Thought Content: Thought content normal. Cognition and Memory: Cognition and memory normal. Judgment: Judgment normal. DATA: Diagnostic tests reviewed for today's visit: Most recent labs and imaging results. Estimated Creatinine Clearance: 118.7 mL/min (A) (based on SCr of 0.52 mg/dL (L)). Opioid Management: Yes Indication for Opioid Prescribing: Cancer related pain ORT-OUD Score: 1 A score of 3 or higher may indicate a higher risk for future development of aberrant drug related behavior or opioid use disorder. Informed consent for chronic opiate therapy obtained and written pain agreement: On file Naloxone offered?: Yes, accepted Course of treatment, patient's response and adherence to the prescribed treatment plan reviewed, including non-pharmacological and non-opioid treatment modalities? Yes Have any complications or exacerbations of the underlying condition causing the pain been reviewed?Yes How much does pain impede patient s ability to engage in work or other purposeful activities, interfere with your activities of daily living, physical activity, or quality of your family life and social activities? Significantly Aberrancies in pain panel? No Any aberrant drug related behaviors since last visit? No Rationale for continuing opioid treatment: Improved comfort and function based on an ongoing functional assessment Benefits of Opioid Therapy outweigh risks: Yes Prescribed Morphine Equivalent Daily Dose (MEDD): Yes > 50 MEDD Yes, I am certified in Hospice and Palliative Care, Hematology, Medical Oncology or Pain Medicine OARRS Checked: PDMP website checked and validated. All prescriptions have been APPROPRIATELY filled. No suspiciousactivity was identified. 09/28/2024 by Vincent Estrada, JUDY, [employer] Assessment & Plan (Z51.5) Palliative care by specialist (primary encounter diagnosis) - Reviwed philosophy of palliative medicine and hospice to family. - Discussed services offered by [facility] and hospice - Provided support to family - Discussed goals of care and how they align with current plan of care - Discussed / described code status and implications while in the hospital - PT remains (R91.8) Lung mass (C79.51) Metastatic cancer to bone (HCC) (G89.3) Neoplasm related pain .03, T40.2X5A) Constipation due to opioid therapy - morphine SR (MS CONTIN) 15 mg po every 12 hours - Oxycodone 10 mg po very 6 hours prn pain - Mobic 7.5 mg po daily with food - Senna S daily, hold for loose stool (R63.0) Anorexia -Hope is improved constipation will improve appetite - will continue to monitor Some elements copied from my note on 08/26/24, the elements have been updated and all reflect currentdecision making from today, 09/28/2024. Existence of Advance Directives: Yes, documentation or copy in medical record Next Visit: 4 Weeks in person Vincent Estrada NP, [employer] September 28, 2024 9:03 AM I spent a total of 35 minutes on the date of the service which included preparing to see the patient, [id number] patient care, completing clinical documentation, obtaining and/or reviewing separately obtained history, performing a medically appropriate examination, counseling and educating the pat ient/family/caregiver, ordering medications, tests, or procedures, communicating with other HCPs (not separately reported), independently interpreting results (not separately reported), communicatingresults to the patient/family/caregiver, and care coordination (not separately reported). This note may have been partially generated using the trend.ly voice recognition system. While every effort was made to correct voice recognition errors, kindly be aware that some errors may occasionally occur. documented in this encounterPromedica Bay Park [facility]03-07-2025 NoteMem[facility] History of Present illness Narrative* Ann-Marie Gomez APRN.CNP - 09/22/2024 10:00 AM EST Images from the original note were not included. PATIENT NAME: Ofe Saravia CLINIC NO.: [id number] ATTENDING PHYSICIAN: Isaac Gracia MD DATE OF SERVICE: 09/22/2024 (Christy). Dear Dr. Sarabjit Crowley [id number] [facility] [address] thank you for referring Ofe Saravia for an opinion regarding Lung cancer. Some of the elements of this note have been copied from my previous progress note dated September 14, 2024 All the information has been reviewed carefully. CHIEF COMPLAINT: Lung cancer HPI: Ofe Saravia is a 68 year old year old female with PMH of CVA, anxiety. Ms. Saravia first developed right shoulder pain this past April which persisted despite conservative measures. She brought this to the attention of her PCP who ordered an MRI of the right shoulder. The scan was performed on 07/01/2024 which revealed an expansile lesion involving the anterosuperioraspect of the glenoid with extension to the adjacent base of the coracoid process and soft tissues,associated with a displaced pathologic fracture of the [...] studies are pending. She met with Dr. Narayan from rad onc at [facility] who recommended palliative RT closer to home, at [facility]. Venus is a former smoker, having [...] area. Prescribed Silvadene. ANC today is 7.57 09/14/24: - PD-L1 TPS - 50% - Hospitalized from 09/07-09/13 - Recd blood transfusion and iron infusion - Completed radiation on 08/31/24. - Denies any bleeding. - Did not find etiology for fever. Current Outpatient Medications Medication Sig doxycycline hyclate (VIBRAMYCIN) 100 mg capsule traMADol (ULTRAM) 50 mg tablet Take 1.5 tablets by mouth every 4 hours for 7 days. for pain. meloxicam (MOBIC) 7.5 mg tablet Take 2 tablets by mouth once daily. prochlorperazine (COMPAZINE) 10 mg tablet Take 1 tablet by mouth every 6 hours as needed. ondansetron (ZOFRAN) 8 mg tablet Take 1 tablet by mouth every 8 hours as needed for nausea/vomiting. senna-docusate (SENNA-S) 8.6-50 mg per tablet Take 1 tablet by mouth once daily. naloxone 4 mg/actuation nasal spray (NARCAN) Use 1 spray in one nostril as needed for overdose. Mayrepeat every 2 to 3 min in alternating nostrils until medical assistance is available acetaminophen (TYLENOL) 325 mg tablet Take 325 mg by mouth as needed for pain. hydroCHLOROthiazide 25 mg tablet Take 1 tablet by mouth every afternoon. levothyroxine (SYNTHROID) 25 mcg tablet Take 25 mcg by mouth once daily. FLUoxetine (PROZAC) 20 mg capsule Take 20 mg by mouth once daily. ezetimibe (ZETIA) 10 mg tablet Take 10 mg by mouth once daily. propranolol (INDERAL) 20 mg tablet as needed. vitamin b complex tab Take 1 tablet by mouth once daily. ASCORBIC ACID (VITAMIN C ORAL) Take by mouth. Magnesium Oxide-Mg Amino Acid Chelate 300 mg cap Take 300 mg by mouth daily at bedtime. CHOLECALCIFEROL (VITAMIN D3) 2,000 UNIT CAP Take one(1) tablet daily. silver sulfADIAZINE (SILVADENE) 1 % cream Apply to affected area once daily for 14 days. No current facility-administered medications for this visit. 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 SKIN: Negative for lesions, rash, and itching. HEMATOLOGY/LYMPHOLOGY Negative for prolonged bleeding, bruising easily, and swollen nodes. NEURO: Negative for numbness or tingling of hands/feet. No weakness. PHYSICAL EXAMINATION: BP 116/73 Pulse 74 Temp 36.4 C (97.6 F) (Temporal) Resp 18 Wt 86.6 kg (190 lb 14.7 oz) LMP 05/24/2007 SpO2 96% BMI 29.27 kg/m There were no vitals taken for this visit. Last 3 Encounter Wt Readings: Date: Wt: 08/23/2024 90.7 kg (200 lb) 08/23/2024 92.4 kg (203 lb 11.3 oz) 08/22/2024 91.3 kg (201 lb 4.5 oz) General appearance:ECOG PERFORMANCE STATUS: 3- Capable of only limited selfcare, confined to bed/chair > 50% of waking hrs. Patient in NAD. Skin: Skin color, texture, turgor normal. Erythremic rash on right upper shoulder. Eyes: Anicteric sclera. Pupils are equally round and reactive to light. Extraocular movements are intact. Breast: No palpable breast masses. No nipple change or discharge. Lymph Nodes: No cervical, supraclavicular, axillary or inguinal adenopathy. Oropharynx: Lips, mucosa, and tongue normal. Back: No pain to percussion. Negative SLR test Lungs clear to auscultation, No wheezing or rhonchi Heart: RRR without murmur, gallop, or rubs. Abdomen soft, non-tender. No masses, organomegaly Extremities: No deformities. No edema Neuro: Gait and speech normal. Reflexes normal and symmetric. Muscular strength intact. Sensation grossly intact. Rectal: Deferred : Deferred LABS: Glucose (mg/dL) Date Value 09/22/2024 142 12/24/2009 157 Potassium (mmol/L) Date Value 09/22/2024 4.2 12/24/2009 4.1 Sodium (mmol/L) Date Value 09/22/2024 137 12/24/2009 140 Chloride (mmol/L) Date Value 09/22/2024 97 12/24/2009 104 CO2 (mmol/L) Date Value 09/22/2024 29 12/24/2009 22 Creatinine (mg/dL) Date Value 09/22/2024 0.52 12/24/2009 0.52 BUN (mg/dL) Date Value 09/22/2024 13 12/24/2009 13 Anion Gap (mmol/L) Date Value 09/22/2024 11 12/24/2009 14 Calcium (mg/dL) Date Value 12/24/2009 9.1 Calcium, Total (mg/dL) Date Value 09/22/2024 9.0 Protein, Total (g/dL) Date Value 09/22/2024 6.5 Albumin (g/dL) Date Value 09/22/2024 3.1 Bilirubin, Total (mg/dL) Date Value 09/22/2024 0.3 Alkaline Phosphatase (U/L) Date Value 09/22/2024 188 AST (U/L) Date Value 09/22/2024 44 ALT (U/L) Date Value 09/22/2024 70 WBC Date Value Ref Range Status 09/22/2024 9.84 3.70 - 11.00 k/uL Preliminary Comment: Results checked and verified.No clot detected. RBC Date Value Ref Range Status 09/22/2024 3.52 (L) 3.90 - 5.20 m/uL Preliminary Hemoglobin Date Value Ref Range Status 09/22/2024 10.0 (L) 11.5 - 15.5 g/dL Preliminary Hematocrit Date Value Ref Range Status 09/22/2024 31.7 (L) 36.0 - 46.0 % Preliminary MCV Date Value Ref Range Status 09/22/2024 90.1 80.0 - 100.0 fL Preliminary MCH Date Value Ref Range Status 09/22/2024 28.4 26.0 - 34.0 pg Preliminary MCHC Date Value Ref Range Status 09/22/2024 31.5 30.5 - 36.0 g/dL Preliminary RDW-CV Date Value Ref Range Status 09/22/2024 15.0 11.5 - 15.0 % Preliminary Platelet Count Date Value Ref Range Status 09/22/2024 229 150 - 400 k/uL Preliminary Comment: Results checked and verified.No clot detected. MPV Date Value Ref Range Status 09/22/2024 10.8 9.0 - 12.7 fL Preliminary Abs Neut Date Value Ref Range Status 09/14/2024 11.77 (H) 1.45 - 7.50 k/uL Final Lymphocytes % Date Value Ref Range Status 09/14/2024 3.7 % Final Abs Lymph Date Value Ref Range Status 09/14/2024 0.49 (L) 1.00 - 4.00 k/uL Final Monocytes % Date Value Ref Range Status 09/14/2024 5.4 % Final Abs [place] Date Value Ref Range Status 09/14/2024 0.72 <0.87 k/uL Final Abs Eosin Date Value Ref Range Status 09/14/2024 0.08 <0.46 k/uL Final Basophils % Date Value Ref Range Status 09/14/2024 0.3 % Final Abs Baso Date Value Ref Range Status 09/14/2024 0.04 <0.11 k/uL Final PATH: FINAL DIAGNOSIS [...] be excluded. IMAGING: ASSESSMENT AND PLAN: Ofe Saravia is a 68 year old year old female referred to us for metastatic squamous cell lung cancer. H/o CVA. CT chest abdomen pelvis showed left upper lobe mass, enlarged AP window lymph node and lytic lesions at the right scapula and the right iliac bone. -Right shoulder soft tissue biopsy showed metastatic carcinoma with squamous differentiation of lung origin PLAN: - Hospitalized from 09/07-09/13/24 with gen weakness, fatigue and fever. - Completed 5 fractions of radiation to the right scapula and the right iliac bone on 08/31/24. - MRI brain on 09/01/24 is normal. - PD-L1 TPS - 50%. AP mol results pending - Cycle 2 carbo taxol keytruda scheduled for 10/05/2024. Carbo AUC 5, Taxol 175mg/m2 due to her ageand performance status. - Advised her to get dental clearance for bisphosphonate therapy. - Pain medications as per the palliative care - Monitor the anemia for now. - Advised her to increase the salt intake for hyponatremia. - All her questions answered in detail - prescribed Silvadene for rash/burn- encouraged to call office if no improvement or worsening. Dear Dr. Sarabjit Crowley [address] [facility] [address] thank you for allowing me to participate in Ofe Saravia care, if there are any questions or concerns please do not hesitate to contact me at the number below. . Ann-Marie Gomez APRN, [employer], [facility] H[facility]ology [facility] Oncology Services Provided at: [place], [place] CC: documented in this encounterPromedica Bay Park [facility]03-06-2025 NoteMemorial [facility]03-05-2025 Telephone encounter Note* Telephone Encounter - Wanda Ogden - 09/21/2024 1:15 PM EST Per patient's appts, she is scheduled for tomorrow with Ann-Marie. Thanks!! Wanda Ogden [facility]03-05-2025 Miscellaneous Notes* Telephone Encounter - Wanda Ogden - 09/21/2024 1:15 PM EST Per patient's appts, she is scheduled for tomorrow with Ann-Marie. Thanks!! Wanda Ogden * Telephone Encounter - Ghislaine Thakur RN - 09/21/2024 12:02 PM EST Per telephone encounters on 09/19 pt was seen in the ER and sent home. Call placed to pt who states she didn't feel well enough to come in today. Pt states she's having diarrhea, 2 today. Pt did take imodium for this. Pt states she's drinking minimal. Strongly encouraged pt to increase fluid intake to >80 oz. Pt verbalized understanding. Call transferred to PSS's to have pt come in tomorrow or Thursday to be seen. Ghislaine Thakur RN * Telephone Encounter - Isaac Gracia MD - 09/21/2024 11:56 AM EST She might be in the hospital. We told her to go to ER 2 days ago. Thanks. * Telephone Encounter - Wanda Ogden - 09/21/2024 11:52 AM EST Patient did not show for RV today. Wanda Ogden documented in this encounterPromedica Bay Park Hospital03-05-2025 Telephone encounter Note * Telephone Encounter - Ghislaine Thakur RN - 09/21/2024 12:02 PM EST Per telephone encounters on 09/19 pt was seen in the ER and sent home. Call placed to pt who states she didn't feel well enough to come in today. Pt states she's having diarrhea, 2 today. Pt did take imodium for this. Pt states she's drinking minimal. Strongly encouraged pt to increase fluid intake to >80 oz. Pt verbalized understanding. Call transferred to PSS's to have pt come in tomorrow or Thursday to be seen. Ghislaine Thakur RN [facility] Work Phone: [phone] Telephone encounter Note* Telephone Encounter - Isaac Gracia MD - 09/21/2024 11:56 AM EST She might be in the hospital. We told her to go to ER 2 days ago. Thanks. [facility]03-05-2025 Telephone encounter Note* Telephone Encounter - Wanda Ogden - 09/21/2024 11:52 AM EST Patient did not show for RV today. Wanda Ogden [facility]03-04-2025 Telephone encounter Note* Telephone Encounter - Ghislaine Thakur RN - 09/20/2024 11:38 AM EST EMERGENCY ROOM CALL BACK Today's date: September 20, 2024 Patient identified by name and date of . YES Primary Cancer Diagnosis: lung cancer Reason for Emergency Room Visit: shortness of breath Time of day presented to Emergency Room afternoon If Thu-Thursday during business hours: Did you contact your Sound Installation Worker/Provider? Yes, told to present to emergency department Patient with any new symptom issues: No Psychosocial Risk Factors: None FOLLOW UP Patient reminded of her [facility] providerAnn-Marie tomorrow: Yes Next Sound Installation Worker outreach with patient scheduled? prn Discussed with pt's how pt is doing. He states she's resting now but feeling much better. Pt has started taking the doxycycline and benzonatate as prescribed. Pt slept well and was up and about this morning before taking a rest period. states he also go cortisone cream for the rash on her face which is helping as well. PATIENT EDUCATION/REINFORCEMENT Patient verbalizes understanding of when to seek Medical Attention? YES Patient verbalizes understanding of after hours and weekend phone number? YES Patient verbalizes understanding of next outreach appointment? YES Ghislaine Thakur RN [facility] Work Phone: [phone] Miscellaneous Notes* Telephone Encounter - Ghislaine Thakur RN - 09/20/2024 11:38 AM EST EMERGENCY ROOM CALL BACK Today's date: September 20, 2024 Patient identified by name and date of . YES Primary Cancer Diagnosis: lung cancer Reason for Emergency Room Visit: shortness of breath Time of day presented to Emergency Room afternoon If Thu-Thursday during business hours: Did you contact your Sound Installation Worker/Provider? Yes, told to present to emergency department Patient with any new symptom issues: No Psychosocial Risk Factors: None FOLLOW UP Patient reminded of her follow-up appointment with [facility] providerAnn-Marie tomorrow: Yes Next Sound Installation Worker outreach with patient scheduled? prn Discussed with pt's how pt is doing. He states she's resting now but feeling much better. Pt has started taking the doxycycline and benzonatate as prescribed. Pt slept well and was up and about this morning before taking a rest period. states he also go cortisone cream for the rash on her face which is helping as well. PATIENT EDUCATION/REINFORCEMENT Patient verbalizes understanding of when to seek Medical Attention? YES Patient verbalizes understanding of after hours and weekend phone number? YES Patient verbalizes understanding of next outreach appointment? YES Ghislaine Thakur RN * Telephone Encounter - Ghislaine Thakur RN - 09/19/2024 12:11 PM EST Pt's calls back and has pt on speaker phone. Pt is short of breath over the phone and not able to form complete sentences without needing to take a breath for more air. will be takingpt to the ER. He's not sure if he'll take her to [facility] or [facility] but will decide while he's getting her to the car. Ghislaine Thakur RN * Telephone Encounter - Isaac Gracia MD - 09/19/2024 12:08 PM EST Ok fine. Please tell her to go to ER. Thanks * Telephone Encounter - Ghislaine Thakur RN - 09/19/2024 11:58 AM EST calls stating pt has developed a rash on the right side of her neck and shoulder/collar bone area. States this is blotchy and itching. states pt is sleeping right now but she's been having difficulty breathing over the last day or two. He states she's short of breath at rest, and she needs to stop and take breaths just saying a sentence. Explained to that this is not normal and pt needs to go to the ER. He states she's sleeping right now. Encouraged to assess pt's shortness of breath and if she still has it she needs to go to the ER. Verbalized understanding. He states he will take her back to [facility] ER. Ghislaine Thakur RN documented in this encounterPromedica Bay Park Hospital03-03-2025 Telephone encounter Note * Telephone Encounter - Ghislaine Thakur RN - 09/19/2024 12:29 PM EST CYCLE 1/DAY 1 POST TREATMENT CALL Today's date: September 19, 2024 Treatment Regimen: carbo, taxol, keytruda C1D1 Date: 09/14/24 Called patient to follow-up on symptom management. Spoke with patient SYMPTOM ASSESSMENT Neuro: Headache yesterday, didn't last long per CV/Resp: Shortness of breath worse, now having it at rest and while trying to talk per GI/: Appetite: decreased appetite, Fluid intake: decreased, not near 60 oz that were recommended and Diarrhea: yes, 3 liquid stools yesterday, one today so far, not taking anything OTC for diarrhea. Integument: None Activity: Patient's reported minimal activity. States she was in bed all day yesterday and went back to bed about an hour ago Pain: states pt has lower back pain now, on both sides. States her overall pain seems to bebetter, but her lower back pain is new. Tramadol helps Fever: No Chills: No Any new referrals needed? Yes pt was sleeping during this call with . He states pt is very short of breath at rest and while trying to talk. This started a day or two ago, and is new for her. called right back after waking up patient and had pt on speaker phone. Pt is very short of breath while resting in bed. Unable to speak without having to stop for air. will be taking pt to ER. Reinforced CURRENT treatment education based on current and anticipated symptoms. Discussed port/line care and patient verbalizes understanding: No Patient instructed to contact office or after hours Hematology/Oncology fellow for: temperature >= 100.4; questions or concerns. Patient verbalized understanding of when to seek medical attention and after hours number protocol. Ghislaine Thakur RN [facility] Work Phone: [phone] 396-849203-03-2025 Miscellaneous Notes* Telephone Encounter - Ghislaine Thakur RN - 09/19/2024 12:29 PM EST CYCLE 1/DAY 1 POST TREATMENT CALL Today's date: September 19, 2024 Treatment Regimen: carbo, taxol, keytruda C1D1 Date: 09/14/24 Called patient to follow-up on symptom management. Spoke with patient SYMPTOM ASSESSMENT Neuro: Headache yesterday, didn't last long per CV/Resp: Shortness of breath worse, now having it at rest and while trying to talk per GI/: Appetite: decreased appetite, Fluid intake: decreased, not near 60 oz that were recommended and Diarrhea: yes, 3 liquid stools yesterday, one today so far, not taking anything OTC for diarrhea. Integument: None Activity: Patient's reported minimal activity. States she was in bed all day yesterday and went back to bed about an hour ago Pain: states pt has lower back pain now, on both sides. States her overall pain seems to bebetter, but her lower back pain is new. Tramadol helps Fever: No Chills: No Any new referrals needed? Yes pt was sleeping during this call with . He states pt is very short of breath at rest and while trying to talk. This started a day or two ago, and is new for her. called right back after waking up patient and had pt on speaker phone. Pt is very short of breath while resting in bed. Unable to speak without having to stop for air. will be taking pt to ER. Reinforced CURRENT treatment education based on current and anticipated symptoms. Discussed port/line care and patient verbalizes understanding: No Patient instructed to contact office or after hours Hematology/Oncology fellow for: temperature >= 100.4; questions or concerns. Patient verbalized understanding of when to seek medical attention and after hours number protocol. Ghislaine Thakur RN documented in this encounterPromedica Bay Park Hospital03-03-2025 Telephone encounter Note * Telephone Encounter - Ghislaine Thakur RN - 09/19/2024 12:11 PM EST Pt's calls back and has pt on speaker phone. Pt is short of breath over the phone and not able to form complete sentences without needing to take a breath for more air. will be takingpt to the ER. He's not sure if he'll take her to [facility] or [employer] but will decide while he's getting her to the car. Ghislaine Thakur RN [facility]03-03-2025 Telephone encounter Note* Telephone Encounter - Isaac Gracia MD - 09/19/2024 12:08 PM EST Ok fine. Please tell her to go to ER. Thanks [facility]03-03-2025 Telephone encounter Note* Telephone Encounter - Ghislaine Thakur RN - 09/19/2024 11:58 AM EST calls stating pt has developed a rash on the right side of her neck and shoulder/collar bone area. States this is blotchy and itching. states pt is sleeping right now but she's been having difficulty breathing over the last day or two. He states she's short of breath at rest, and she needs to stop and take breaths just saying a sentence. Explained to that this is not normal and pt needs to go to the ER. He states she's sleeping right now. Encouraged to assess pt's shortness of breath and if she still has it she needs to go to the ER. Verbalized understanding. He states he will take her back to [facility] [place]. Ghislaine Thakur, RN [facility]02-26-2025 Note* Addendum Note - Isaac Gracia MD - 09/14/2024 2:27 PM ESTAddended by: ISAAC GRACIA on: 09/14/2024 02:27 PM Modules accepted: Orders [facility]02-26-2025 Miscellaneous Notes* Addendum Note - Isaac Gracia MD - 09/14/2024 2:27 PM ESTAddended by: ISAAC GRACIA on: 09/14/2024 02:27 PM Modules accepted: Orders documented in this encounterPromedica Bay Park Hospital02-26-2025 NoteHNO ID: [id number] Author: KAMLA BUSH RN Service: ? Author Type: Registered Nurse Type: Progress Notes Filed: 09/14/2024 16:04 Note Text: Hold Xgeva today per Dr. Gracia. Needs dental clearance. Tx nurse informed. Kamla Bush RN[facility] History of Present illness Narrative* Kmala Bush RN - 09/14/2024 9:35 AM EST Hold Xgeva today per Dr. Gracia. Needs dental clearance. Tx nurse informed. Kamla Bush RN documented in this encounterPromedica Bay Park Hospital02-26-2025 Instructions* Patient Instructions* Isaac Gracia MD - 09/14/2024 9:14 AM EST Treatment today F/u in 1 week documented in this encounterPromedica Bay Park Hospital02-26-2025 NoteMemorial [facility]02-26-2025 History of Present illness Narrative* Isaac Gracia MD - 09/14/2024 8:43 AM EST Images from the original note were not included. PATIENT NAME: Ofe Saravia CLINIC NO.: [id number] ATTENDING PHYSICIAN: Isaac Gracia MD DATE OF SERVICE: September 14, [address] Sarabjit Crowley [id number] [facility] [id number] thank you for referring Ofe Saravia for an opinion regarding Lung cancer. Some of the elements of this note have been copied from my previous progress note dated 08/26/24. Allthe information has been reviewed carefully. CHIEF COMPLAINT: Lung cancer HPI: Ofe Saravia is a 68 year old year old female with PMH of CVA, anxiety. Ms. Saravia first developed right shoulder pain this past April which persisted despite conservative measures. She brought this to the attention of her PCP who ordered an MRI of the right shoulder. The scan was performed on 07/01/2024 which revealed an expansile lesion involving the anterosuperioraspect of the glenoid with extension to the adjacent base of the coracoid process and soft tissues,associated with a displaced pathologic fracture of the [...] studies are pending. She met with Dr. Narayan from rad onc at [facility] who recommended palliative RT closer to home, at [facility]. Venus is a former smoker, having quit 25 years ago after smoking about 1.5 PPD for 18 years. Had 2 radiation treatments so far. Total of 5 treatments. No alcohol. Able to eat and drink good. 09/14/24: - PD-L1 TPS - 50% - Hospitalized from 09/07-09/13 - Recd blood transfusion and iron infusion - Completed radiation on 08/31/24. - Denies any bleeding. - Did not find etiology for fever. Current Outpatient Medications Medication Sig traMADol (ULTRAM) 50 mg tablet Take 1.5 tablets by mouth every 4 hours for 7 days. for pain. meloxicam (MOBIC) 7.5 mg tablet Take 2 tablets by mouth once daily. prochlorperazine (COMPAZINE) 10 mg tablet Take 1 tablet by mouth every 6 hours as needed. ondansetron (ZOFRAN) 8 mg tablet Take 1 tablet by mouth every 8 hours as needed for nausea/vomiting. senna-docusate (SENNA-S) 8.6-50 mg per tablet Take 1 tablet by mouth once daily. naloxone 4 mg/actuation nasal spray (NARCAN) Use 1 spray in one nostril as needed for overdose. Mayrepeat every 2 to 3 min in alternating nostrils until medical assistance is available acetaminophen (TYLENOL) 325 mg tablet Take 325 mg by mouth as needed for pain. hydroCHLOROthiazide 25 mg tablet Take 1 tablet by mouth every afternoon. levothyroxine (SYNTHROID) 25 mcg tablet Take 25 mcg by mouth once daily. FLUoxetine (PROZAC) 20 mg capsule Take 20 mg by mouth once daily. ezetimibe (ZETIA) 10 mg tablet Take 10 mg by mouth once daily. propranolol (INDERAL) 20 mg tablet as needed. 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 SKIN: Negative for lesions, rash, and itching. HEMATOLOGY/LYMPHOLOGY Negative for prolonged bleeding, bruising easily, and swollen nodes. NEURO: Negative for numbness or tingling of hands/feet. No weakness. PHYSICAL EXAMINATION: LMP 05/24/2007 There were no vitals taken for this visit. Last 3 Encounter Wt Readings: Date: Wt: 08/23/2024 90.7 kg (200 lb) 08/23/2024 92.4 kg (203 lb 11.3 oz) 08/22/2024 91.3 kg (201 lb 4.5 oz) General appearance:ECOG PERFORMANCE STATUS: 3- Capable of only limited selfcare, confined to bed/chair > 50% of waking hrs. Patient in NAD. Skin: Skin color, texture, turgor normal. No rashes or lesions. Eyes: Anicteric sclera. Pupils are equally round and reactive to light. Extraocular movements are intact. Breast: No palpable breast masses. No nipple change or discharge. Lymph Nodes: No cervical, supraclavicular, axillary or inguinal adenopathy. Oropharynx: Lips, mucosa, and tongue normal. Back: No pain to percussion. Negative SLR test Lungs clear to auscultation, No wheezing or rhonchi Heart: RRR without murmur, gallop, or rubs. Abdomen soft, non-tender. No masses, organomegaly Extremities: No deformities. No edema Neuro: Gait and speech normal. Reflexes normal and symmetric. Muscular strength intact. Sensation grossly intact. Rectal: Deferred : Deferred LABS: Glucose (mg/dL) Date Value 07/29/2024 120 12/24/2009 157 Potassium (mmol/L) Date Value 07/29/2024 4.0 12/24/2009 4.1 Sodium (mmol/L) Date Value 07/29/2024 141 12/24/2009 140 Chloride (mmol/L) Date Value 07/29/2024 100 12/24/2009 104 CO2 (mmol/L) Date Value 07/29/2024 27 12/24/2009 22 Creatinine (mg/dL) Date Value 07/29/2024 0.68 12/24/2009 0.52 BUN (mg/dL) Date Value 07/29/2024 19 12/24/2009 13 Anion Gap (mmol/L) Date Value 07/29/2024 14 12/24/2009 14 Calcium (mg/dL) Date Value 12/24/2009 9.1 Calcium, Total (mg/dL) Date Value 07/29/2024 9.8 Protein, Total (g/dL) Date Value 07/29/2024 7.9 07/29/2024 7.2 Albumin (g/dL) Date Value 07/29/2024 4.0 Bilirubin, Total (mg/dL) Date Value 07/29/2024 0.3 Alkaline Phosphatase (U/L) Date Value 07/29/2024 96 AST (U/L) Date Value 07/29/2024 16 ALT (U/L) Date Value 07/29/2024 17 WBC Date Value Ref Range Status 09/14/2024 13.25 (H) 3.70 - 11.00 k/uL Final RBC Date Value Ref Range Status 09/14/2024 3.20 (L) 3.90 - 5.20 m/uL Final Hemoglobin Date Value Ref Range Status 09/14/2024 9.1 (L) 11.5 - 15.5 g/dL Final Hematocrit Date Value Ref Range Status 09/14/2024 29.0 (L) 36.0 - 46.0 % Final MCV Date Value Ref Range Status 09/14/2024 90.6 80.0 - 100.0 fL Final MCH Date Value Ref Range Status 09/14/2024 28.4 26.0 - 34.0 pg Final MCHC Date Value Ref Range Status 09/14/2024 31.4 30.5 - 36.0 g/dL Final RDW-CV Date Value Ref Range Status 09/14/2024 14.6 11.5 - 15.0 % Final Platelet Count Date Value Ref Range Status 09/14/2024 460 (H) 150 - 400 k/uL Final MPV Date Value Ref Range Status 09/14/2024 9.2 9.0 - 12.7 fL Final Abs Neut Date Value Ref Range Status 09/14/2024 11.77 (H) 1.45 - 7.50 k/uL Final Lymphocytes % Date Value Ref Range Status 09/14/2024 3.7 % Final Abs Lymph Date Value Ref Range Status 09/14/2024 0.49 (L) 1.00 - 4.00 k/uL Final Monocytes % Date Value Ref Range Status 09/14/2024 5.4 % Final Abs [place] Date Value Ref Range Status 09/14/2024 0.72 <0.87 k/uL Final Abs Eosin Date Value Ref Range Status 09/14/2024 0.08 <0.46 k/uL Final Basophils % Date Value Ref Range Status 09/14/2024 0.3 % Final Abs Baso Date Value Ref Range Status 09/14/2024 0.04 <0.11 k/uL Final PATH: FINAL DIAGNOSIS [...] be excluded. IMAGING: ASSESSMENT AND PLAN: Ofe Saravia is a 68 year old year old female referred to us for metastatic squamous cell lung cancer. H/o CVA. CT chest abdomen pelvis showed left upper lobe mass, enlarged AP window lymph node and lytic lesions at the right scapula and the right iliac bone. -Right shoulder soft tissue biopsy showed metastatic carcinoma with squamous differentiation of lung origin PLAN: - Hospitalized from 09/07-09/13/24 with gen weakness, fatigue and fever. - Completed 5 fractions of radiation to the right scapula and the right iliac bone on 08/31/24. - MRI brain on 09/01/24 is normal. - PD-L1 TPS - 50%. AP mol results pending - Proceed with cycle 1 carbo taxol keytruda today. Carbo AUC 5, Taxol 175mg/m2 due to her age and performance status. - Advised her to get dental clearance for bisphosphonate therapy. - Pain medications as per the palliative care - Monitor the anemia for now. - Advised her to increase the salt intake for hyponatremia. - All her questions answered in detail - Follow-up in [address] Sarabjit Crowley [id number] [facility] [id number] thank you for allowing me to participate in Ofe Saravia care, if there are any questions or concerns please do not hesitate to contact me at the number below. I spent a total of 30 minutes on the date of the service which included preparing to see the patient, [id number] patient care, completing clinical documentation, obtaining and/or reviewing separately obtained history, performing a medically appropriate examination, counseling and educating the pat ient/family/caregiver, ordering medications, tests, or procedures, communicating with other HCPs (not separately reported), independently interpreting results (not separately reported), communicatingresults to the patient/family/caregiver, and care coordination (not separately reported). Isaac Gracia MD. Hematology/Medical Oncology [facility] [phone] CC: documented in this encounterPromedica Bay Park Hospital02-25-2025 Telephone encounter Note * Telephone Encounter - Ghislaine Thakur RN - 09/13/2024 11:24 AM EST DISCHARGE CALL BACK Today's date: September 13, 2024 Notified of Pt discharge by: previous telephone encounter Patient discharged on 09/12/24 from [facility] to Home Primary Cancer Diagnosis: lung cancer Admitting Diagnosis: anemia, fever, hx lung cancer, loose stools Discharge Summary/SBAR reviewed: Yes Handoff Discussed with Transitional Sound Installation Worker: No, unavailable Psychosocial Risk Factors: Yes: Anxious/Depressed Mood Social Work notified: No If patient discharged to SNF/Rehab Facility, phone call completed to reinforce discharge instructions and follow up: N/A Call Disposition: Called patient and spoke with patients Patient identified by name and date of . YES Patient with symptom issues: Yes, continues to have ongoing fevers. states pt gets the chills, spikes a fever to 102-103, it breaks in sweats, and then she's fine. This happens at least everynight between 7-9 pm. Pain: No=0 (pain 0 on a scale of 0-10). Is patient followed by Palliative Medicine? Yes: Provider: Jihan Estrada Palliative Medicine follow up: follow up appointment in place Any new barriers to care identified? No Any new referrals needed? No Social Work Follow-Up visit scheduled? No Does the patient need interventions no or same day appointment: No MEDICATION ADHERENCE Patient discharged with prescriptions? No Discharge prescriptions filled: N/A no new prescriptions ordered Patient understands when to take prescriptions: N/A FOLLOW UP Patient scheduled for follow-up appointment within 5 business days of discharge? Yes Patient reminded of follow-up appointment with [facility] provider, Dr Flanagan on 09/14/24: Yes Discussed with pt/ how she is feeling on speaker phone. Pt is much better now that she's home. Continues with sweats, but denies symptoms otherwise. PATIENT EDUCATION / REINFORCEMENT Patient verbalizes understanding of when to seek Medical Attention? YES Patient verbalizes understanding of after hours and weekend phone number? YES and Seen in clinic within 48 hours of discharge Ghislaine Thakur RN [facility] Work Phone: 1(682) 328-849602-25-2025 Miscellaneous Notes* Telephone Encounter - Ghislaine Thakur RN - 09/13/2024 11:24 AM EST DISCHARGE CALL BACK Today's date: September 13, 2024 Notified of Pt discharge by: previous telephone encounter Patient discharged on 09/12/24 from [facility] to Home Primary Cancer Diagnosis: lung cancer Admitting Diagnosis: anemia, fever, hx lung cancer, loose stools Discharge Summary/SBAR reviewed: Yes Handoff Discussed with Transitional Sound Installation Worker: No, unavailable Psychosocial Risk Factors: Yes: Anxious/Depressed Mood Social Work notified: No If patient discharged to SNF/Rehab Facility, phone call completed to reinforce discharge instructions and follow up: N/A Call Disposition: Called patient and spoke with patients Patient identified by name and date of . YES Patient with symptom issues: Yes, continues to have ongoing fevers. states pt gets the chills, spikes a fever to 102-103, it breaks in sweats, and then she's fine. This happens at least everynight between 7-9 pm. Pain: No=0 (pain 0 on a scale of 0-10). Is patient followed by Palliative Medicine? Yes: Provider: Jihan Estrada Palliative Medicine follow up: follow up appointment in place Any new barriers to care identified? No Any new referrals needed? No Social Work Follow-Up visit scheduled? No Does the patient need interventions no or same day appointment: No MEDICATION ADHERENCE Patient discharged with prescriptions? No Discharge prescriptions filled: N/A no new prescriptions ordered Patient understands when to take prescriptions: N/A FOLLOW UP Patient scheduled for follow-up appointment within 5 business days of discharge? Yes Patient reminded of follow-up appointment with [facility] provider, Dr Flanagan on 09/14/24: Yes Discussed with pt/ how she is feeling on speaker phone. Pt is much better now that she's home. Continues with sweats, but denies symptoms otherwise. PATIENT EDUCATION / REINFORCEMENT Patient verbalizes understanding of when to seek Medical Attention? YES Patient verbalizes understanding of after hours and weekend phone number? YES and Seen in clinic within 48 hours of discharge Ghislaine Thakur RN documented in this encounterPromedica Bay Park Hospital02-24-2025 Discharge summary Author Agatha Martinez [facility] CenterNote Date/TimeFebruary 2024 2:05pm [place] [address] Discharge Summary Signed Patient: Ofe Saravia MR#: [id number] : 1955 Acct:[id number] Age/Sex: 68 / F Adm Date: 5 Loc: Room: [address] [place] [address]: Agatha Martinez MD Copies to: Asya Clements Jr, DO Agatha Martinez MD~ Providers Date of Discharge: 09/12/24 Discharging Provider: Agatha Martinez Primary Care Provider: Asya Clements Consults: 09/08/24 10:37 Consult to Physical Therapy Routine Comment: Physician Instructions: Consult to PT for:: Evaluation and Treat 09/08/24 10:38 Consult to Occupational Therapy Routine Comment: Physician Instructions: Consult to OT for:: Evaluation and Treat 09/09/24 07:50 Consult to Infectious Diseases Routine Comment: Consulting Provider: KILEY - Infectious Disease Reason For Exam: fevers Has Provider Been Notified: Yes Date of Notification: 09/09/24 Time of Notification: 09:34 09/09/24 09:32 Consult to Physiatry Routine Comment: Consulting Provider: KILEY - Phys Med - Rehab Reason For Exam: rehab needs/post acute care planning Has Provider Been Notified: Yes Date of Notification: 09/09/24 Time of Notification: 09:32 09/09/24 11:26 Consult to Oncology Routine Comment: Consulting Provider: SUSAN [facility] Reason For Exam: lung ca, chemo? Has Provider Been Notified: Yes Date of Notification: 09/09/24 Time of Notification: 11:46 Discharge Diagnosis (1) Acute anemia: (2) Intermittent fever: (3) History of lung cancer: (4) Metastatic disease: (5) Loose stools: Final Diagnosis Final Discharge Diagnosis: as above Summary Hospital Course Hospital course: Ofe Saravia is a 68-year-old female with past medical history significant for stroke with left-sided facial droop send deficits and lung cancer being treated by [facility] who presented to the ER this evening for evaluationof fevers, chills and fatigue. During hospital course, patient was initially treated for suspected CAP with IV AB. Given 1 unit ofblood transfusion. She felt a bit better after BT. However noted to have spikes of fevers despite being on AB. WBC has normalized. pt remained with no respiratory symptoms. UA neg. ID was consulted for input, recommended to observe off antibiotics which we did and pt continued to spike fevers and reports chills at night. Hem/onc consulted, recs for outpatient chemoas soon as get discharged. recs for Iron infusions which pt received here x 3 doses and does report feeling much better with that. As of today, pt remained hemodynamically stable. She did spike a fever last evening as well, thought p rocess goes towards underlying malignancy as an etiology as we ruled out infectious process, blood cultures remained negative even repeat ones. Discussed with patient at bedside, all questions answered, patient in agreement and comfortable with the plan. She will follow with PCP and oncologist as ou tpatient. Condition Condition at Discharge: Stable Time Spent with Patient Time spent providing/coordinating discharge services (# min): 39 Discharge Plan Discharge Plan Patient Disposition: Home Activity: Ambulate as Tolerated Diet: Regular Instructions: Know your Meds Prescriptions: New acetaminophen [Tylenol] 325 mg Tablet 650 mg PO Q6H PRN (Reason: fever/pain) Qty: 90 0RF Continued hydrochlorothiazide 25 mg tablet 25 mg PO .PRN tramadol 50 mg tablet 50 mg PO .PRN PRN (Reason: pain) fluoxetine 20 mg capsule 20 mg PO QAM levothyroxine 25 mcg tablet 25 mcg PO QHS ezetimibe [Zetia] 10 mg tablet 5 mg PO QAM propranolol 60 mg tablet 60 mg PO QHS PRN (Reason: tremor(s), anxiety) oxybutynin chloride 5 mg tablet 5 mg PO BID-TID PRN (Reason: bladder spasms) Qty: 30 0RF Changed meloxicam 15 mg tablet 15 mg PO BID PRN (Reason: pain) Qty: 1 0RF Discontinued acetaminophen [Tylenol] 325 mg tablet 325 mg PO Q6HR PRN (Reason: pain) Other Ambulatory Orders: PT/OT/SP OutPatient Referral (Routine) Timeframe: 1 Day Location: Determined by Patient Ordered By: Agatha Martinez Follow Up: [facility] [Outside] - 09/14/24 8:45 am (Follow-up with Dr. Flanagan, call office to reschedule if needed. ) Asya Clements JR, DO [Primary Care Provider] - (Left message with office staff to call you to arrange a post-hospital follow-up appointment. Recommend follow-up within 3-5 days of discharge. ) Continuity of Care Document Health Concerns: A [facility] screening has identified you as FRAIL or AT RISK FOR FRAILTY. This puts you at a higher risk for infection, illness, falls,and other injuries. Here are four ways to help you reduce your risk of frailty: 1. IDENTIFY EARLY SIGNS OF FRAILTY ? Discuss contributing factors and concerns with your doctor 2. BE ACTIVE ? Walking and light strengthening exercises will help reduce weakness 3. EAT WELL ? Aim for three healthy meals a day that are high in protein 4. THINKPOSITIVE ? Keep your mind active by being sociable and continuing to learn References: Stay Strong:Four Ways to Beat the Frailty Risk [email or web address]://www.[email or web address].org/health/zljlojty-oqk-vdvnyqhdal/st rp-nwhxke-vgxf- ndiz-tg-agjt-qid-scitbov-vwwn Exam Physical Exam Vital Signs: Temp Pulse Resp BP Pulse Ox O2 Del Method O2 Flow Rate 97.8 F 84 16 123/83 98 Room Air 2 09/12/24 08:00 09/12/24 08:00 09/12/24 08:00 09/12/24 08:00 09/12/24 08:00 09/12/24 08:00 09/12/24 08:00 Narrative: GENERAL: No apparent distress, alert, oriented HEENT: NC/AT, left sided facial droop , chronic from previous CVA CARDIOVASCULAR: Regular rate and regular rhythm, no murmurs, symmetric palpable radial pulses RESPIRATORY: nonlabored work of breathing on room air, clear to auscultation bilaterally, no wheezes/rales/rhonci ABDOMEN: Soft, non-tender, non-distended, EXTREMITIES: Well-perfused SKIN: Intact, no rash, no trauma PSYCHIATRIC: appropriate mood and affect, cooperative Diagnostic Studies Completed and Pending Studies Pending studies at discharge: 09/09/24 09:53 Blood Culture Routine Preliminary micro results at discharge 09/09/24 09:53 Blood Culture - Preliminary Blood - Right Arm No Growth 3 Days 09/09/24 09:48 Blood Culture - Preliminary Blood - Left Arm No Growth 3 Days Labs on day of discharge: 09/12/24 04:07: Corrected WBC 11.2, RBC 2.89 L, Hgb 8.3 L, Hct 25.2 L, MCV 87.2,MCH 28.6, MCHC 32.8, RDW 14.6, Plt Count 409, MPV 7.4, PHA Creatinine Clear 82.13, Sodium 137, Potassium 3.8, Chloride 102, Carbon Dioxide 27.9, Anion Gap 10.9, BUN 7, Creatinine 0.41 L, Est GFR (CKD-EPI) > 60.0, Glucose 108 H, Calcium8.2 L Documented By: Agatha Martinez MD 09/12/24 10 52 Signed By: <Electronically signed by Agatha Martinez MD> 09/12/24 1405 [facility] Work Phone: 1(713) 611-718802-24-2025 Telephone encounter Note* Telephone Encounter - Ghislaine Thakur RN - 09/12/2024 3:59 PM EST Call placed to Kayla at [facility] who states pt was discharged home this afternoon. She states pt continues to spike fevers, most recent one this morning >103. She states pt takes tylenol and her temperature normalizes. Pt's cultures have all come back negative. Pt was not discharged on antibiotics, and was told to take tylenol prn. Pt has follow up here on Thursday morning at 845. Ghislaine Thakur RN [facility] Work Phone: [phone]) 577-926102-24-2025 Miscellaneous Notes* Telephone Encounter - Ghislaine Thakur RN - 09/12/2024 3:59 PM EST Call placed to Kayla at [facility] who states pt was discharged home this afternoon. She states pt continues to spike fevers, most recent one this morning >103. She states pt takes tylenol and her temperature normalizes. Pt's cultures have all come back negative. Pt was not discharged on antibiotics, and was told to take tylenol prn. Pt has follow up here on Thursday morning at 845. Ghislaine Thakur RN * Telephone Encounter - Ghislaine Thakur RN - 09/09/2024 11:06 AM EST Call placed to Kayla at [facility] who states pt has been spiking fevers over the last 24 hours and they're trying to figure out why. They re cindy blood cultures today as well as did another urine culture. Pt is on IV rocephin and oral zithromax. Dr Elizabeth has been consulted as well. Ghislaine Thakur RN * Telephone Encounter - Adina Romero - 09/07/2024 2:13 PM EST Patient's 09/08 appointments at our office have been cancelled. Adina Kline * Telephone Encounter - Ghislaine Thakur RN - 09/07/2024 1:50 PM EST Call placed to Domenica, nurse caring for pt. She states pt was admitted with pneumonia. She is currently on IV rocephin and erythromycin. Pt is also receiving 1 unit of blood now for hgb of 7.6. PSS: please cancel pt's appointments here tomorrow as she will still be admitted to [facility]. Thanks Ghislaine Thakur RN * Telephone Encounter - Ghislaine Thakur RN - 09/07/2024 9:37 AM EST Pt admitted to 4T at [facility]. Spoke with hoop coiling machine operator and she will have pt's nurse call our office back. Ghislaine Thakur RN * Telephone Encounter - Ghislaine Thakur RN - 09/06/2024 4:20 PM EST Pt's notified and he will be taking pt to [facility]. Ghislaine Thakur RN * Telephone Encounter - Isaac Gracia MD - 09/06/2024 4:10 PM EST Please send her to ER. [facility]. * Telephone Encounter - Ghislaine Thakur RN - 09/06/2024 4:00 PM EST Pt's calls stating pt is having worsening pain, dizziness, nausea, unsteady gait, uncontrollable chills for 3 days now, and pt hasn't been notified of MRI results from 10 days ago. states pt takes tramadol and it slightly takes the edge off for about an hour. Her pain is in her right shoulder and right hip where she's already had radiation. Please advise Ghislaine Thakur RN documented in this encounterPromedica Bay Park Hospital02-24-2025 Discharge summary [address] [address] Discharge Summary Signed Patient: Ofe Saravia MR#: [id number] : 1955 Acct:[id number] Age/Sex: 68 / F Adm Date: 5 Loc: Room: [address] [place] [address]: Agatha Martinez MD Copies to: Asya Clements Jr, DO Agatha Martinez MD~ Providers Date of Discharge: 09/12/24 Discharging Provider: Agatha Martinez Primary Care Provider: Asya Clements Consults: 09/08/24 10:37 Consult to Physical Therapy Routine Comment: Physician Instructions: Consult to PT for:: Evaluation and Treat 09/08/24 10:38 Consult to Occupational Therapy Routine Comment: Physician Instructions: Consult to OT for:: Evaluation and Treat 09/09/24 07:50 Consult to Infectious Diseases Routine Comment: Consulting Provider: [facility] - Infectious Disease Reason For Exam: fevers Has Provider Been Notified: Yes Date of Notification: 09/09/24 Time of Notification: 09:34 09/09/24 09:32 Consult to Physiatry Routine Comment: Consulting Provider: [facility] - Phys Med - Rehab Reason For Exam: rehab needs/post acute care planning Has Provider Been Notified: Yes Date of Notification: 09/09/24 Time of Notification: 09:32 09/09/24 11:26 Consult to Oncology Routine Comment: Consulting Provider: [facility] Reason For Exam: lung ca, chemo? Has Provider Been Notified: Yes Date of Notification: 09/09/24 Time of Notification: 11:46 Discharge Diagnosis (1) Acute anemia: (2) Intermittent fever: (3) History of lung cancer: (4) Metastatic disease: (5) Loose stools: Final Diagnosis Final Discharge Diagnosis: as above Summary Hospital Course Hospital course: Ofe Saravia is a 68-year-old female with past medical history significant for stroke with left-sided facial droop send deficits and lung cancer being treated by [facility] who presented to the ER this evening for evaluationof fevers, chills and fatigue. During hospital course, patient was initially treated for suspected CAP with IV AB. Given 1 unit ofblood transfusion. She felt a bit better after BT. However noted to have spikes of fevers despite being on AB. WBC has normalized. pt remained with no respiratory symptoms. UA neg. ID was consulted for input, recommended to observe off antibiotics which we did and pt continued to spike fevers and reports chills at night. Hem/onc consulted, recs for outpatient chemoas soon as get discharged. recs for Iron infusions which pt received here x 3 doses and does report feeling much better with that. As of today, pt remained hemodynamically stable. She did spike a fever last evening as well, thought p rocess goes towards underlying malignancy as an etiology as we ruled out infectious process, blood cultures remained negative even repeat ones. Discussed with patient at bedside, all questions answered, patient in agreement and comfortable with the plan. She will follow with PCP and oncologist as ou tpatient. Condition Condition at Discharge: Stable Time Spent with Patient Time spent providing/coordinating discharge services (# min): 39 Discharge Plan Discharge Plan Patient Disposition: Home Activity: Ambulate as Tolerated Diet: Regular Instructions: Know your Meds Prescriptions: New acetaminophen [Tylenol] 325 mg Tablet 650 mg PO Q6H PRN (Reason: fever/pain) Qty: 90 0RF Continued hydrochlorothiazide 25 mg tablet 25 mg PO .PRN tramadol 50 mg tablet 50 mg PO .PRN PRN (Reason: pain) fluoxetine 20 mg capsule 20 mg PO QAM levothyroxine 25 mcg tablet 25 mcg PO QHS ezetimibe [Zetia] 10 mg tablet 5 mg PO QAM propranolol 60 mg tablet 60 mg PO QHS PRN (Reason: tremor(s), anxiety) oxybutynin chloride 5 mg tablet 5 mg PO BID-TID PRN (Reason: bladder spasms) Qty: 30 0RF Changed meloxicam 15 mg tablet 15 mg PO BID PRN (Reason: pain) Qty: 1 0RF Discontinued acetaminophen [Tylenol] 325 mg tablet 325 mg PO Q6HR PRN (Reason: pain) Other Ambulatory Orders: PT/OT/SP OutPatient Referral (Routine) Timeframe: 1 Day Location: Determined by Patient Ordered By: Agatha Martinez Follow Up: [facility] [Outside] - 09/14/24 8:45 am (Follow-up with Dr. Flanagan, call office to reschedule if needed. ) Asya Clements JR, DO [Primary Care Provider] - (Left message with office staff to call you to arrange a post-hospital follow-up appointment. Recommend follow-up within 3-5 days of discharge. ) Continuity of Care Document Health Concerns: A [facility] screening has identified you as FRAIL or AT RISK FOR FRAILTY. This puts you at a higher risk for infection, illness, falls,and other injuries. Here are four ways to help you reduce your risk of frailty: 1. IDENTIFY EARLY SIGNS OF FRAILTY ? Discuss contributing factors and concerns with your doctor 2. BE ACTIVE ? Walking and light strengthening exercises will help reduce weakness 3. EAT WELL ? Aim for three healthy meals a day that are high in protein 4. THINKPOSITIVE ? Keep your mind active by being sociable and continuing to learn References: Stay Strong:Four Ways to Beat the Frailty Risk [email or web address]://www.[email or web address].org/health/gxqielat-fyy-tilpdlfbtm/st xa-ivklxi-vndh- qodz-ym-aibs-bve-axfwwkg-opzh Exam Physical Exam Vital Signs: Temp Pulse Resp BP Pulse Ox O2 Del Method O2 Flow Rate 97.8 F 84 16 123/83 98 Room Air 2 09/12/24 08:00 09/12/24 08:00 09/12/24 08:00 09/12/24 08:00 09/12/24 08:00 09/12/24 08:00 09/12/24 08:00 Narrative: GENERAL: No apparent distress, alert, oriented HEENT: NC/AT, left sided facial droop , chronic from previous CVA CARDIOVASCULAR: Regular rate and regular rhythm, no murmurs, symmetric palpable radial pulses RESPIRATORY: nonlabored work of breathing on room air, clear to auscultation bilaterally, no wheezes/rales/rhonci ABDOMEN: Soft, non-tender, non-distended, EXTREMITIES: Well-perfused SKIN: Intact, no rash, no trauma PSYCHIATRIC: appropriate mood and affect, cooperative Diagnostic Studies Completed and Pending Studies Pending studies at discharge: 09/09/24 09:53 Blood Culture Routine Preliminary micro results at discharge 09/09/24 09:53 Blood Culture - Preliminary Blood - Right Arm No Growth 3 Days 09/09/24 09:48 Blood Culture - Preliminary Blood - Left Arm No Growth 3 Days Labs on day of discharge: 09/12/24 04:07: Corrected WBC 11.2, RBC 2.89 L, Hgb 8.3 L, Hct 25.2 L, MCV 87.2,MCH 28.6, MCHC 32.8, RDW 14.6, Plt Count 409, MPV 7.4, PHA Creatinine Clear 82.13, Sodium 137, Potassium 3.8, Chloride 102, Carbon Dioxide 27.9, Anion Gap 10.9, BUN 7, Creatinine 0.41 L, Est GFR (CKD-EPI) > 60.0, Glucose 108 H, Calcium8.2 L Documented By: Agatha Martinez MD 09/12/24 10 52 Signed By: 09/12/24 1405 [facility]02-24-2025 Progress note Author Elizabeth Elizabeth [facility] CenterNote Date/TimeFebruary 2024 9:05am [place] [address] Infect. Disease Progress Note Signed Patient: Ofe Saravia MR#: [id number] : 1955 Acct:[id number] Age/Sex: 68 / F Adm Date: 5 Loc: Room: [address] [place] [address] Type: ADM IN Attending Dr: Agatha Martinez MD Copies to: ~ Date of Service: 09/12/2024 Subjective Interval history: Patient lying in bed this morning without new complaints but did spike significant fever last evening once again. Denies any new/worsening symptoms. Exam Physical Exam Vital Signs: Vital Signs Temp Pulse Resp BP Pulse Ox O2 Del Method O2 Flow Rate 09/12/24 08:00 Room Air 2 09/12/24 08:00 97.8 F 84 16 123/83 98 Room Air 09/12/24 04:00 98.2 F 75 18 121/58 L 97 BiPAP 09/12/24 00:00 97.9 F 94 18 128/60 98 CPAP 09/11/24 20:00 Room Air 09/11/24 20:00 99.8 F H 95 16 120/55 L 96 Room Air 09/11/24 20:00 102.9 F H 09/11/24 19:15 103.1 F H 09/11/24 16:00 CPAP 09/11/24 16:00 97.8 F 84 16 114/53 L 98 CPAP 09/11/24 12:01 Room Air 09/11/24 11:48 98.6 F 75 18 109/57 L 94 L Room Air Const General: cooperative, comfortable and no acute distress Other: R sided facial droop from prior CVA HEENT Head: normal to inspection Ears: hearing grossly normal bilaterally Nose: external nose normal Mouth: oral mucosae normal Eyes General: appearance normal, both eyes and all related structures Neck Neck: normal visual inspection Chest Chest palpation & inspection: normal inspection of the chest Resp Effort & Inspection: normal respiratory effort, able to speak in complete sentences, no cough and no respiratory distress Auscultation: clear to auscultation bilaterally, no crackles and no rhonchi Cardio Rate: regular rate Rhythm: regular rhythm GI Inspection: normal to inspection Palpation: soft and nontender Auscultation: normal bowel sounds Skin General: no rashes or lesions noted Neuro General: patient oriented x3 Extrem General: normal to inspection Objective Labs CBC/BMP: CBC, BMP 09/12/24 04:07 Corrected WBC 11.2 RBC 2.89 L Hgb 8.3 L Hct 25.2 L Plt Count 409 Sodium 137 Potassium 3.8 Chloride 102 Carbon Dioxide 27.9 Anion Gap 10.9 BUN 7 Creatinine 0.41 L Calcium 8.2 L Labs: 09/12/24 04:07 BUN 7 Creatinine 0.41 L Microbiology Microbiology: Microbiology - Results from entire visit 09/06/24 23:23 Blood - Left Antecubital Blood Culture - Final NO GROWTH 5 DAYS 09/06/24 23:23 Blood - Right Hand Blood Culture - Final NO GROWTH 5 DAYS 09/09/24 09:53 Blood - Right Arm Blood Culture - Preliminary No Growth 2 Days 09/09/24 09:48 Blood - Left Arm Blood Culture - Preliminary No Growth 2 Days 09/09/24 16:35 Clean Void Midstream Urine Culture - Final <9,000 colonies/ml mixed bacterial skin contaminants 2 Days 09/08/24 12:10 Nasopharyngeal Respiratory Panel (PCR) - Final 09/06/24 21:30 Nasopharyngeal SARS-CoV-2, Influenza & RSV (PCR) - Final Allergies and Medications Allergies and Active Meds Allergies No Known Allergies Allergy (Verified 09/06/24 18:15) Active Medications Acetaminophen (Acetaminophen 325 Mg Tablet) 650 mg PO Q6H [facility] Stop: 09/10/25 15:59 Last Admin: 09/12/24 07:29 Dose: 650 mg Ezetimibe (Ezetimibe 10 Mg Tablet) 5 mg PO QAM [facility] Stop: 09/10/25 08:59 Last Admin: 09/12/24 08:16 Dose: 5 mg Enoxaparin Sodium (Enoxaparin 40 Mg/0.4 Ml Syringe) 40 mg SUBCUT DAILY@10 [facility] Stop: 09/07/25 09:59 Last Admin: 09/11/24 10:19 Dose: 40 mg Fluoxetine HCl (Fluoxetine 20 Mg Capsule) [facility] Stop: 09/09/25 09:39 Last Admin: 09/12/24 08:16 Dose: 20 mg Hydromorphone HCl (Hydromorphone 0.5 Mg/0.5 Ml Syringe) 0.5 mg IV-PUSH Q4H PRN PRN Reason: Pain Scale 8 - 10 Last Admin: 09/12/24 07:29 Dose: 0.5 mg Ferric Sodium Gluconate Complex 125 mg/ Sodium Chloride 110 mls @ 110 mls/hr IVQAM [facility] Stop: 09/09/25 19:29 Last Infusion: 09/11/24 11:10 Dose: Infused Levothyroxine Sodium (Levothyroxine 25 Mcg Tablet) 25 mcg PO QHS [facility] Stop: 09/09/25 21:59 Last Admin: 09/12/24 00:46 Dose: 25 mcg Propranolol HCl (Propranolol 20 Mg Tablet) 60 mg PO QHS PRN PRN Reason: tremor(s), anxiety Last Admin: 09/12/24 00:46 Dose: 60 mg Sodium Chloride (Sodium Chloride 0.9 % 10 Ml Syringe) 0 ml IV-PUSH PRN PRN PRN Reason: Flush Stop: 09/06/25 18:12 Last Admin: 09/09/24 15:10 Dose: 20 ml Tramadol HCl (Tramadol 50 Mg Tablet) 50 mg PO Q6H PRN PRN Reason: Pain Scale 4 - 7 Stop: 03/06/25 04:06 Last Admin: 09/07/24 23:47 Dose: 50 mg A&P - Infectious Disease Assessment/Plan (1) Intermittent fever: (2) History of lung cancer: (3) Metastatic disease: Plan Patient continues to spike fevers and quite significant degree of elevation noted last night. Back to her baseline this morning she states. Again no new physical complaints. Based on CT scan of the chest from earlier this hospital stay I had suggested that a fevers continue we could relook at the CT scan of the chest to see if any progression/postobstructive consolidation was seen. Shewould not like to pursue with any further CT scans while in the hospital. She feels that the fevers are likely from her underlying cancer. Part of her workupat hospital included blood cultures as well as a CT scan of the abdomen pelvis that did not document anything acute. Patient is planning on being discharged today. Documented By: Elizabeth Elizabeth MD 09/12/24 0859 Signed By: <Electronically signed by MD Elizabeth Elizabeth> 09/12/24 0905 [facility] Work Phone: [phone]) 574-954702-24-20[place] [address] Infect. Disease Progress Note Signed Patient: Ofe Saravia MR#: [id number] : 1955 Acct:[id number] Age/Sex: 68 / F Adm Date: 5 Loc: Room: [address] [place] [address] Type: ADM IN Attending Dr: Agatha Martinez MD Copies to: ~ Date of Service: 09/12/2024 Subjective Interval history: Patient lying in bed this morning without new complaints but did spike significant fever last evening once again. Denies any new/worsening symptoms. Exam Physical Exam Vital Signs: Vital Signs Temp Pulse Resp BP Pulse Ox O2 Del Method O2 Flow Rate 09/12/24 08:00 Room Air 2 09/12/24 08:00 97.8 F 84 16 123/83 98 Room Air 09/12/24 04:00 98.2 F 75 18 121/58 L 97 BiPAP 09/12/24 00:00 97.9 F 94 18 128/60 98 CPAP 09/11/24 20:00 Room Air 09/11/24 20:00 99.8 F H 95 16 120/55 L 96 Room Air 09/11/24 20:00 102.9 F H 09/11/24 19:15 103.1 F H 09/11/24 16:00 CPAP 09/11/24 16:00 97.8 F 84 16 114/53 L 98 CPAP 09/11/24 12:01 Room Air 09/11/24 11:48 98.6 F 75 18 109/57 L 94 L Room Air Const General: cooperative, comfortable and no acute distress Other: R sided facial droop from prior CVA HEENT Head: normal to inspection Ears: hearing grossly normal bilaterally Nose: external nose normal Mouth: oral mucosae normal Eyes General: appearance normal, both eyes and all related structures Neck Neck: normal visual inspection Chest Chest palpation & inspection: normal inspection of the chest Resp Effort & Inspection: normal respiratory effort, able to speak in complete sentences, no cough and no respiratory distress Auscultation: clear to auscultation bilaterally, no crackles and no rhonchi Cardio Rate: regular rate Rhythm: regular rhythm GI Inspection: normal to inspection Palpation: soft and nontender Auscultation: normal bowel sounds Skin General: no rashes or lesions noted Neuro General: patient oriented x3 Extrem General: normal to inspection Objective Labs CBC/BMP: CBC, BMP 09/12/24 04:07 Corrected WBC 11.2 RBC 2.89 L Hgb 8.3 L Hct 25.2 L Plt Count 409 Sodium 137 Potassium 3.8 Chloride 102 Carbon Dioxide 27.9 Anion Gap 10.9 BUN 7 Creatinine 0.41 L Calcium 8.2 L Labs: 09/12/24 04:07 BUN 7 Creatinine 0.41 L Microbiology Microbiology: Microbiology - Results from entire visit 09/06/24 23:23 Blood - Left Antecubital Blood Culture - Final NO GROWTH 5 DAYS 09/06/24 23:23 Blood - Right Hand Blood Culture - Final NO GROWTH 5 DAYS 09/09/24 09:53 Blood - Right Arm Blood Culture - Preliminary No Growth 2 Days 09/09/24 09:48 Blood - Left Arm Blood Culture - Preliminary No Growth 2 Days 09/09/24 16:35 Clean Void Midstream Urine Culture - Final <9,000 colonies/ml mixed bacterial skin contaminants 2 Days 09/08/24 12:10 Nasopharyngeal Respiratory Panel (PCR) - Final 09/06/24 21:30 Nasopharyngeal SARS-CoV-2, Influenza & RSV (PCR) - Final Allergies and Medications Allergies and Active Meds Allergies No Known Allergies Allergy (Verified 09/06/24 18:15) Active Medications Acetaminophen (Acetaminophen 325 Mg Tablet) 650 mg PO Q6H [facility] Stop: 09/10/25 15:59 Last Admin: 09/12/24 07:29 Dose: 650 mg Ezetimibe (Ezetimibe 10 Mg Tablet) [facility] Stop: 09/10/25 08:59 Last Admin: 09/12/24 08:16 Dose: 5 mg Enoxaparin Sodium (Enoxaparin 40 Mg/0.4 Ml Syringe) 40 mg SUBCUT DAILY@10 [facility] Stop: 09/07/25 09:59 Last Admin: 09/11/24 10:19 Dose: 40 mg Fluoxetine HCl (Fluoxetine 20 Mg Capsule) [facility] Stop: 09/09/25 09:39 Last Admin: 09/12/24 08:16 Dose: 20 mg Hydromorphone HCl (Hydromorphone 0.5 Mg/0.5 Ml Syringe) 0.5 mg IV-PUSH Q4H PRN PRN Reason: Pain Scale 8 - 10 Last Admin: 09/12/24 07:29 Dose: 0.5 mg Ferric Sodium Gluconate Complex 125 mg/ Sodium Chloride 110 mls @ 110 mls/hr IVQAM [facility] Stop: 09/09/25 19:29 Last Infusion: 09/11/24 11:10 Dose: Infused Levothyroxine Sodium (Levothyroxine 25 Mcg Tablet) 25 mcg PO QHS [facility] Stop: 09/09/25 21:59 Last Admin: 09/12/24 00:46 Dose: 25 mcg Propranolol HCl (Propranolol 20 Mg Tablet) 60 mg PO QHS PRN PRN Reason: tremor(s), anxiety Last Admin: 09/12/24 00:46 Dose: 60 mg Sodium Chloride (Sodium Chloride 0.9 % 10 Ml Syringe) 0 ml IV-PUSH PRN PRN PRN Reason: Flush Stop: 09/06/25 18:12 Last Admin: 09/09/24 15:10 Dose: 20 ml Tramadol HCl (Tramadol 50 Mg Tablet) 50 mg PO Q6H PRN PRN Reason: Pain Scale 4 - 7 Stop: 03/06/25 04:06 Last Admin: 09/07/24 23:47 Dose: 50 mg A&P - Infectious Disease Assessment/Plan (1) Intermittent fever: (2) History of lung cancer: (3) Metastatic disease: Plan Patient continues to spike fevers and quite significant degree of elevation noted last night. Back to her baseline this morning she states. Again no new physical complaints. Based on CT scan of the chest from earlier this hospital stay I had suggested that a fevers continue we could relook at the CT scan of the chest to see if any progression/postobstructive consolidation was seen. Shewould not like to pursue with any further CT scans while in the hospital. She feels that the fevers are likely from her underlying cancer. Part of her workupat hospital included blood cultures as well as a CT scan of the abdomen pelvis that did not document anything acute. Patient is planning on being discharged today. Documented By: Elizabeth Elizabeth MD 09/12/24 0859 Signed By: 09/12/24 0905 [facility]02-23-2025 Progress note Author Agatha Martinez [facility] CenterNote Date/TimeFebruary 2024 1:46pm [place] [address] Hospitalist Progress Note Signed Patient: Ofe Saravia MR#: [id number] : 1955 Acct:[id number] Age/Sex: 68 / F Adm Date: 5 Loc: Room: [address] [place] [address] Type: ADM IN Attending Dr: Agatha Martinez MD Copies to: ~ Date of Service: 09/11/2024 Subjective Subjective Narrative: Patient was evaluated at bedside, remained with no significant fevers over the past 24 hours. WBC within normal limit, she feels better today, however reports chills overnight. tolerated diet. stoolsare forming. Exam Physical Exam Vital Signs: Temp Pulse Resp BP Pulse Ox O2 Del Method O2 Flow Rate 98.6 F 75 18 109/57 L 94 L Room Air 2 09/11/24 11:48 09/11/24 11:48 09/11/24 11:48 09/11/24 11:48 09/11/24 11:48 09/11/24 12:01 09/10/24 08:00 Narrative: GENERAL: No apparent distress, alert, oriented HEENT: NC/AT, left sided facial droop , chronic from previous CVA CARDIOVASCULAR: Regular rate and regular rhythm, no murmurs, symmetric palpable radial pulses RESPIRATORY: nonlabored work of breathing on room air, clear to auscultation bilaterally, no wheezes/rales/rhonci ABDOMEN: Soft, non-tender, non-distended, EXTREMITIES: Well-perfused SKIN: Intact, no rash, no trauma PSYCHIATRIC: appropriate mood and affect, cooperative Objective Lab Results 09/11/24 04:28 09/11/24 04:28 Microbiology Results Microbiology 09/09/24 09:53 Blood - Right Arm Blood Culture - Preliminary No Growth 2 Days 09/09/24 09:48 Blood - Left Arm Blood Culture - Preliminary No Growth 2 Days 09/09/24 16:35 Clean Void Midstream Urine Culture - Final <9,000 colonies/ml mixed bacterial skin contaminants 2 Days 09/06/24 23:23 Blood - Left Antecubital Blood Culture - Preliminary No Growth 4 Days 09/06/24 23:23 Blood - Right Hand Blood Culture - Preliminary No Growth 4 Days Meds Allergies and Active Meds Allergies No Known Allergies Allergy (Verified 09/06/24 18:15) Active Meds: Active Medications Generic Name Dose Route Start Last Admin Trade Name Freq PRN Reason Stop Dose Admin Acetaminophen 650 mg 09/10/24 16:00 09/11/24 10:19 Acetaminophen 325 Mg Tablet PO 09/10/25 15:59 650 mg Q6H [facility] Administration Ezetimibe 5 mg 09/10/24 09:00 09/11/24 10:19 Ezetimibe 10 Mg Tablet PO 09/10/25 08:59 5 mg QAM [facility] Administration Enoxaparin Sodium 40 mg 09/07/24 10:00 09/11/24 10:19 Enoxaparin 40 Mg/0.4 Ml Syringe SUBCUT 09/07/25 09:59 40 mg DAILY@10 [facility] Administration Fluoxetine HCl 20 mg 09/09/24 09:40 09/11/24 10:19 Fluoxetine 20 Mg Capsule PO 09/09/25 09:39 20 mg QAM [facility] Administration Hydromorphone HCl 0.5 mg 09/07/24 04:07 09/11/24 10:07 Hydromorphone 0.5 Mg/0.5 Ml Syringe IV-PUSH 0.5 mg Q4H PRN Administration Pain Scale 8 - 10 Ferric Sodium Gluconate 110 mls @ 110 mls/hr 09/09/24 19:30 09/11/24 10:09 Complex 125 mg/ Sodium IV 09/09/25 19:29 110 mls/hr Chloride QAM [facility] Administration Levothyroxine Sodium 25 mcg 09/09/24 22:00 09/10/24 21:51 Levothyroxine 25 Mcg Tablet PO 09/09/25 21:59 25 mcg QHS [facility] Administration Propranolol HCl 60 mg 09/09/24 09:16 09/10/24 21:48 Propranolol 20 Mg Tablet PO 60 mg QHS PRN Administration tremor(s), anxiety Sodium Chloride 0 ml 09/06/24 18:13 09/09/24 15:10 Sodium Chloride 0.9 % 10 Ml Syringe IV-PUSH 09/06/25 18:12 20 ml PRN PRN Administration Flush Tramadol HCl 50 mg 09/07/24 04:07 09/07/24 23:47 Tramadol 50 Mg Tablet PO 03/06/25 04:06 50 mg Q6H PRN Administration Pain Scale 4 - 7 A&P - Hospitalist Assessment/Plan (1) History of lung cancer: (2) Anemia: Plan 68F pmh stage IV lung cancaer, stroke, hypothyroidism, tremor, presenting with generalized fatigue and lightheadedness Assessment and Plan: 1. Acute anemia, symptomatic anemia Hgb intiially was 7.9, 1 unit of pRBCs was transfused and Hgb yesterday was 9.0,Hgb today is 8.9. Iron studies would indicate anemia of chronic disease. Last week patient finished radiation for bone mets, this could be contributing to anemia as well. wbc downtrending from 9.8 to 8.9 Pt continues to be tachycardic and febrile, her propranolol was restarted. This is a home medication that she takes for her tremor that she has not been taking since in-patient, will see if this addresses tachycardia. Blood cx still have no growth discontinued AB. observing off AB for now ID consulted for input. appreciate input Repeat UA neg Oncology consulted. input appreciated. DVT px: Lovenox Diet: regular Code: Full Home medications for chronic conditions unless stated otherwise: Hypothyroidism Tremor Discussed with patient and at bedside, question answered, they are in agreement with above plan Continue to receive IV iron while here total of 3 doses Continue to observe off AB. Pt decides on chemo soon after dc, for which she will go home with outpatient PT/OT If remains stable, possible discharge in am Documented By: Agatha Martinez MD 09/11/24 13 43 Signed By: <Electronically signed by Agatha Martinez MD> 09/11/24 9056 [facility] Work Phone: [phone]) 456-373402-23-2025 [place] [address] Hospitalist Progress Note Signed Patient: Ofe Saravia MR#: [id number] : 1955 Acct:[id number] Age/Sex: 68 / F Adm Date: 5 Loc: Room: [address] [place] [address] Type: ADM IN Attending Dr: Agatha Martinez MD Copies to: ~ Date of Service: 09/11/2024 Subjective Subjective Narrative: Patient was evaluated at bedside, remained with no significant fevers over the past 24 hours. WBC within normal limit, she feels better today, however reports chills overnight. tolerated diet. stoolsare forming. Exam Physical Exam Vital Signs: Temp Pulse Resp BP Pulse Ox O2 Del Method O2 Flow Rate 98.6 F 75 18 109/57 L 94 L Room Air 2 09/11/24 11:48 09/11/24 11:48 09/11/24 11:48 09/11/24 11:48 09/11/24 11:48 09/11/24 12:01 09/10/24 08:00 Narrative: GENERAL: No apparent distress, alert, oriented HEENT: NC/AT, left sided facial droop , chronic from previous CVA CARDIOVASCULAR: Regular rate and regular rhythm, no murmurs, symmetric palpable radial pulses RESPIRATORY: nonlabored work of breathing on room air, clear to auscultation bilaterally, no wheezes/rales/rhonci ABDOMEN: Soft, non-tender, non-distended, EXTREMITIES: Well-perfused SKIN: Intact, no rash, no trauma PSYCHIATRIC: appropriate mood and affect, cooperative Objective Lab Results 09/11/24 04:28 09/11/24 04:28 Microbiology Results Microbiology 09/09/24 09:53 Blood - Right Arm Blood Culture - Preliminary No Growth 2 Days 09/09/24 09:48 Blood - Left Arm Blood Culture - Preliminary No Growth 2 Days 09/09/24 16:35 Clean Void Midstream Urine Culture - Final <9,000 colonies/ml mixed bacterial skin contaminants 2 Days 09/06/24 23:23 Blood - Left Antecubital Blood Culture - Preliminary No Growth 4 Days 09/06/24 23:23 Blood - Right Hand Blood Culture - Preliminary No Growth 4 Days Meds Allergies and Active Meds Allergies No Known Allergies Allergy (Verified 09/06/24 18:15) Active Meds: Active Medications Generic Name Dose Route Start Last Admin Trade Name Freq PRN Reason Stop Dose Admin Acetaminophen 650 mg 09/10/24 16:00 09/11/24 10:19 Acetaminophen 325 Mg Tablet PO 09/10/25 15:59 650 mg Q6H [facility] Administration Ezetimibe 5 mg 09/10/24 09:00 09/11/24 10:19 Ezetimibe 10 Mg Tablet PO 09/10/25 08:59 5 mg QAM [facility] Administration Enoxaparin Sodium 40 mg 09/07/24 10:00 09/11/24 10:19 Enoxaparin 40 Mg/0.4 Ml Syringe SUBCUT 09/07/25 09:59 40 mg DAILY@10 [facility] Administration Fluoxetine HCl 20 mg 09/09/24 09:40 09/11/24 10:19 Fluoxetine 20 Mg Capsule PO 09/09/25 09:39 20 mg QAM [facility] Administration Hydromorphone HCl 0.5 mg 09/07/24 04:07 09/11/24 10:07 Hydromorphone 0.5 Mg/0.5 Ml Syringe IV-PUSH 0.5 mg Q4H PRN Administration Pain Scale 8 - 10 Ferric Sodium Gluconate 110 mls @ 110 mls/hr 09/09/24 19:30 09/11/24 10:09 Complex 125 mg/ Sodium IV 09/09/25 19:29 110 mls/hr Chloride QAM [facility] Administration Levothyroxine Sodium 25 mcg 09/09/24 22:00 09/10/24 21:51 Levothyroxine 25 Mcg Tablet PO 09/09/25 21:59 25 mcg QHS [facility] Administration Propranolol HCl 60 mg 09/09/24 09:16 09/10/24 21:48 Propranolol 20 Mg Tablet PO 60 mg QHS PRN Administration tremor(s), anxiety Sodium Chloride 0 ml 09/06/24 18:13 09/09/24 15:10 Sodium Chloride 0.9 % 10 Ml Syringe IV-PUSH 09/06/25 18:12 20 ml PRN PRN Administration Flush Tramadol HCl 50 mg 09/07/24 04:07 09/07/24 23:47 Tramadol 50 Mg Tablet PO 03/06/25 04:06 50 mg Q6H PRN Administration Pain Scale 4 - 7 A&P - Hospitalist Assessment/Plan (1) History of lung cancer: (2) Anemia: Plan 68F pmh stage IV lung cancaer, stroke, hypothyroidism, tremor, presenting with generalized fatigue and lightheadedness Assessment and Plan: 1. Acute anemia, symptomatic anemia Hgb intiially was 7.9, 1 unit of pRBCs was transfused and Hgb yesterday was 9.0,Hgb today is 8.9. Iron studies would indicate anemia of chronic disease. Last week patient finished radiation for bone mets, this could be contributing to anemia as well. wbc downtrending from 9.8 to 8.9 Pt continues to be tachycardic and febrile, her propranolol was restarted. This is a home medication that she takes for her tremor that she has not been taking since in-patient, will see if this addresses tachycardia. Blood cx still have no growth discontinued AB. observing off AB for now ID consulted for input. appreciate input Repeat UA neg Oncology consulted. input appreciated. DVT px: Lovenox Diet: regular Code: Full Home medications for chronic conditions unless stated otherwise: Hypothyroidism Tremor Discussed with patient and at bedside, question answered, they are in agreement with above plan Continue to receive IV iron while here total of 3 doses Continue to observe off AB. Pt decides on chemo soon after dc, for which she will go home with outpatient PT/OT If remains stable, possible discharge in am Documented By: Agatha Martinez MD 09/11/24 13 43 Signed By: 09/11/24 1346 [facility]02-23-2025 Progress note Author Elizabeth Elizabeth [facility] CenterNote Date/TimeFebruary 2024 9:53am [address] [address] Infect. Disease Progress Note Signed Patient: Ofe Saravia MR#: [id number] : 1955 Acct:[id number] Age/Sex: 68 / F Adm Date: 5 Loc: 4P Room: [address] [place] [address] Type: ADM IN Attending Dr: Agatha Martinez MD Copies to: ~ Date of Service: 09/11/2024 Subjective Interval history: No recorded significant temperature spike in the last 24 hours however patient does admit to feeling warm and chilled last evening. Observing off antibiotics for now is the plan. Tentatively scheduled to go home tomorrow. Exam Physical Exam Vital Signs: Temp Pulse Resp BP Pulse Ox O2 Del Method O2 Flow Rate 98.1 F 82 18 113/58 L 95 Room Air 2 09/11/24 08:12 09/11/24 08:12 09/11/24 08:12 09/11/24 08:12 09/11/24 08:12 09/11/24 08:17 09/10/24 08:00 Const General: cooperative, comfortable and no acute distress Other: R sided facial droop from prior CVA HEENT Head: normal to inspection Ears: hearing grossly normal bilaterally Nose: external nose normal Mouth: oral mucosae normal Eyes General: appearance normal, both eyes and all related structures Neck Neck: normal visual inspection Chest Chest palpation & inspection: normal inspection of the chest Resp Effort & Inspection: normal respiratory effort, able to speak in complete sentences, no cough and no respiratory distress Auscultation: clear to auscultation bilaterally, no crackles and no rhonchi Cardio Rate: regular rate Rhythm: regular rhythm GI Inspection: normal to inspection Palpation: soft and nontender Auscultation: normal bowel sounds Skin General: no rashes or lesions noted Neuro General: patient oriented x3 Extrem General: normal to inspection Objective Labs CBC/BMP: CBC, BMP 09/11/24 04:28 Corrected WBC 10.2 RBC 3.09 L Hgb 8.9 L Hct 26.8 L Plt Count 434 Sodium 136 Potassium 3.8 Chloride 99 Carbon Dioxide 28.3 Anion Gap 12.5 BUN 7 Creatinine 0.43 L Calcium 8.5 L Labs: 09/11/24 04:28 BUN 7 Creatinine 0.43 L Microbiology Microbiology: Microbiology - Results from entire visit 09/09/24 16:35 Clean Void Midstream Urine Culture - Final <9,000 colonies/ml mixed bacterial skin contaminants 2 Days 09/06/24 23:23 Blood - Left Antecubital Blood Culture - Preliminary No Growth 4 Days 09/06/24 23:23 Blood - Right Hand Blood Culture - Preliminary No Growth 4 Days 09/09/24 09:53 Blood - Right Arm Blood Culture - Preliminary No Growth 1 Day 09/09/24 09:48 Blood - Left Arm Blood Culture - Preliminary No Growth 1 Day 09/08/24 12:10 Nasopharyngeal Respiratory Panel (PCR) - Final 09/06/24 21:30 Nasopharyngeal SARS-CoV-2, Influenza & RSV (PCR) - Final Allergies and Medications Allergies and Active Meds Allergies No Known Allergies Allergy (Verified 09/06/24 18:15) Active Medications Acetaminophen (Acetaminophen 325 Mg Tablet) 650 mg PO Q6H [facility] Stop: 09/10/25 15:59 Last Admin: 09/11/24 04:11 Dose: 650 mg Ezetimibe (Ezetimibe 10 Mg Tablet) 5 mg PO QAM [facility] Stop: 09/10/25 08:59 Last Admin: 09/10/24 09:59 Dose: 5 mg Enoxaparin Sodium (Enoxaparin 40 Mg/0.4 Ml Syringe) 40 mg SUBCUT DAILY@10 [facility] Stop: 09/07/25 09:59 Last Admin: 09/10/24 09:58 Dose: 40 mg Fluoxetine HCl (Fluoxetine 20 Mg Capsule) 20 mg PO QAM [facility] Stop: 09/09/25 09:39 Last Admin: 09/10/24 09:59 Dose: 20 mg Hydromorphone HCl (Hydromorphone 0.5 Mg/0.5 Ml Syringe) 0.5 mg IV-PUSH Q4H PRN PRN Reason: Pain Scale 8 - 10 Last Admin: 09/11/24 04:11 Dose: 0.5 mg Ferric Sodium Gluconate Complex 125 mg/ Sodium Chloride 110 mls @ 110 mls/hr IVQAM [facility] Stop: 09/09/25 19:29 Last Admin: 09/10/24 09:58 Dose: 110 mls/hr Levothyroxine Sodium (Levothyroxine 25 Mcg Tablet) 25 mcg PO QHS [facility] Stop: 09/09/25 21:59 Last Admin: 09/10/24 21:51 Dose: 25 mcg Propranolol HCl (Propranolol 20 Mg Tablet) 60 mg PO QHS PRN PRN Reason: tremor(s), anxiety Last Admin: 09/10/24 21:48 Dose: 60 mg Sodium Chloride (Sodium Chloride 0.9 % 10 Ml Syringe) 0 ml IV-PUSH PRN PRN PRN Reason: Flush Stop: 09/06/25 18:12 Last Admin: 09/09/24 15:10 Dose: 20 ml Tramadol HCl (Tramadol 50 Mg Tablet) 50 mg PO Q6H PRN PRN Reason: Pain Scale 4 - 7 Stop: 03/06/25 04:06 Last Admin: 09/07/24 23:47 Dose: 50 mg A&P - Infectious Disease Assessment/Plan (1) Intermittent fever: (2) History of lung cancer: (3) Metastatic disease: (4) Loose stools: Plan Patient without significant consolidation seen on chest CT but upon looking at the read increasing adjacent airspace opacity near the mass in the left upper lobe. She does not have any respiratory symptoms i.e. no cough or shortness of breath. Patient initially was on ceftriaxone and azithromycin but still spikingfevers. Therefore this was stopped. She does have metastatic lesions in her right shoulder and right iliac bone. Of course I do not know if these could potentially be contributing to her fevers. She has no cough or sputum production to suggest she has postobstructive pneumonia or pneumonia of any sort. Upper respiratory panel was negative for targeted pathogens on admission. This morning she again remains without respiratory symptoms. On room air oxygen breathing and satting fine. Discussed with hospitalist yesterday and we decidedto make her Tylenol scheduled. Observing off antibiotics is the plan for now. Documented By: Elizabeth Elizabeth MD 09/11/2451 Signed By: <Electronically signed by MD Elizabeth Elizabeth> 09/11/24 0953 [facility] Ctr Work Phone: [phone]) 108-984102-23-[address] [address] Infect. Disease Progress Note Signed Patient: Ofe Saravia MR#: [id number] : 1955 Acct:[id number] Age/Sex: 68 / F Adm Date: 5 Loc: 4 Room: [address] [place] [address] Type: ADM IN Attending Dr: Agatha Martinez MD Copies to: ~ Date of Service: 09/11/2024 Subjective Interval history: No recorded significant temperature spike in the last 24 hours however patient does admit to feeling warm and chilled last evening. Observing off antibiotics for now is the plan. Tentatively scheduled to go home tomorrow. Exam Physical Exam Vital Signs: Temp Pulse Resp BP Pulse Ox O2 Del Method O2 Flow Rate 98.1 F 82 18 113/58 L 95 Room Air 2 09/11/24 08:12 09/11/24 08:12 09/11/24 08:12 09/11/24 08:12 09/11/24 08:12 09/11/24 08:17 09/10/24 08:00 Const General: cooperative, comfortable and no acute distress Other: R sided facial droop from prior CVA HEENT Head: normal to inspection Ears: hearing grossly normal bilaterally Nose: external nose normal Mouth: oral mucosae normal Eyes General: appearance normal, both eyes and all related structures Neck Neck: normal visual inspection Chest Chest palpation & inspection: normal inspection of the chest Resp Effort & Inspection: normal respiratory effort, able to speak in complete sentences, no cough and no respiratory distress Auscultation: clear to auscultation bilaterally, no crackles and no rhonchi Cardio Rate: regular rate Rhythm: regular rhythm GI Inspection: normal to inspection Palpation: soft and nontender Auscultation: normal bowel sounds Skin General: no rashes or lesions noted Neuro General: patient oriented x3 Extrem General: normal to inspection Objective Labs CBC/BMP: CBC, BMP 09/11/24 04:28 Corrected WBC 10.2 RBC 3.09 L Hgb 8.9 L Hct 26.8 L Plt Count 434 Sodium 136 Potassium 3.8 Chloride 99 Carbon Dioxide 28.3 Anion Gap 12.5 BUN 7 Creatinine 0.43 L Calcium 8.5 L Labs: 09/11/24 04:28 BUN 7 Creatinine 0.43 L Microbiology Microbiology: Microbiology - Results from entire visit 09/09/24 16:35 Clean Void Midstream Urine Culture - Final <9,000 colonies/ml mixed bacterial skin contaminants 2 Days 09/06/24 23:23 Blood - Left Antecubital Blood Culture - Preliminary No Growth 4 Days 09/06/24 23:23 Blood - Right Hand Blood Culture - Preliminary No Growth 4 Days 09/09/24 09:53 Blood - Right Arm Blood Culture - Preliminary No Growth 1 Day 09/09/24 09:48 Blood - Left Arm Blood Culture - Preliminary No Growth 1 Day 09/08/24 12:10 Nasopharyngeal Respiratory Panel (PCR) - Final 09/06/24 21:30 Nasopharyngeal SARS-CoV-2, Influenza & RSV (PCR) - Final Allergies and Medications Allergies and Active Meds Allergies No Known Allergies Allergy (Verified 09/06/24 18:15) Active Medications Acetaminophen (Acetaminophen 325 Mg Tablet) 650 mg PO Q6H [facility] Stop: 09/10/25 15:59 Last Admin: 09/11/24 04:11 Dose: 650 mg Ezetimibe (Ezetimibe 10 Mg Tablet) 5 mg PO QAM [facility] Stop: 09/10/25 08:59 Last Admin: 09/10/24 09:59 Dose: 5 mg Enoxaparin Sodium (Enoxaparin 40 Mg/0.4 Ml Syringe) 40 mg SUBCUT DAILY@10 [facility] Stop: 09/07/25 09:59 Last Admin: 09/10/24 09:58 Dose: 40 mg Fluoxetine HCl (Fluoxetine 20 Mg Capsule) 20 mg PO QAM [facility] Stop: 09/09/25 09:39 Last Admin: 09/10/24 09:59 Dose: 20 mg Hydromorphone HCl (Hydromorphone 0.5 Mg/0.5 Ml Syringe) 0.5 mg IV-PUSH Q4H PRN PRN Reason: Pain Scale 8 - 10 Last Admin: 09/11/24 04:11 Dose: 0.5 mg Ferric Sodium Gluconate Complex 125 mg/ Sodium Chloride 110 mls @ 110 mls/hr IVQAM [facility] Stop: 09/09/25 19:29 Last Admin: 09/10/24 09:58 Dose: 110 mls/hr Levothyroxine Sodium (Levothyroxine 25 Mcg Tablet) 25 mcg PO QHS [facility] Stop: 09/09/25 21:59 Last Admin: 09/10/24 21:51 Dose: 25 mcg Propranolol HCl (Propranolol 20 Mg Tablet) 60 mg PO QHS PRN PRN Reason: tremor(s), anxiety Last Admin: 09/10/24 21:48 Dose: 60 mg Sodium Chloride (Sodium Chloride 0.9 % 10 Ml Syringe) 0 ml IV-PUSH PRN PRN PRN Reason: Flush Stop: 09/06/25 18:12 Last Admin: 09/09/24 15:10 Dose: 20 ml Tramadol HCl (Tramadol 50 Mg Tablet) 50 mg PO Q6H PRN PRN Reason: Pain Scale 4 - 7 Stop: 03/06/25 04:06 Last Admin: 09/07/24 23:47 Dose: 50 mg A&P - Infectious Disease Assessment/Plan (1) Intermittent fever: (2) History of lung cancer: (3) Metastatic disease: (4) Loose stools: Plan Patient without significant consolidation seen on chest CT but upon looking at the read increasing adjacent airspace opacity near the mass in the left upper lobe. She does not have any respiratory symptoms i.e. no cough or shortness of breath. Patient initially was on ceftriaxone and azithromycin but still spikingfevers. Therefore this was stopped. She does have metastatic lesions in her right shoulder and right iliac bone. Of course I do not know if these could potentially be contributing to her fevers. She has no cough or sputum production to suggest she has postobstructive pneumonia or pneumonia of any sort. Upper respiratory panel was negative for targeted pathogens on admission. This morning she again remains without respiratory symptoms. On room air oxygen breathing and satting fine. Discussed with hospitalist yesterday and we decidedto make her Tylenol scheduled. Observing off antibiotics is the plan for now. Documented By: Elizabeth Elizabeth MD 09/11/24 0951 Signed By: 09/11/24 0953 [facility]02-22-2025 Progress note Author Agatha Martinez [facility] CenterNote Date/TimeFebruary 2024 3:51pm [place] [address] Hospitalist Progress Note Signed Patient: Ofe Saravia MR#: [id number] : 1955 Acct:[id number] Age/Sex: 68 / F Adm Date: 5 Loc: 4 Room: 7Y2744-9 Type: ADM IN Attending Dr: Agatha Martinez MD Copies to: ~ Date of Service: 09/10/2024 Subjective Subjective Narrative: Patient was evaluated at bedside, she continued to spike fevers. WBC within normal limit, she feelsbetter today, seen by oncologist last evening and received IV iron, she feels has more energy and appetite today. at bedside ID following, observing off antibiotics. Exam Physical Exam Vital Signs: Temp Pulse Resp BP Pulse Ox O2 Del Method O2 Flow Rate 99.8 F H 83 18 118/58 L 99 Room Air 2 09/10/24 08:00 09/10/24 08:00 09/10/24 08:00 09/10/24 08:00 09/10/24 08:00 09/10/24 08:00 09/10/24 08:00 Narrative: GENERAL: No apparent distress, alert, oriented HEENT: NC/AT, left sided facial droop , chronic from previous CVA CARDIOVASCULAR: Regular rate and regular rhythm, no murmurs, symmetric palpable radial pulses RESPIRATORY: nonlabored work of breathing on room air, clear to auscultation bilaterally, no wheezes/rales/rhonci ABDOMEN: Soft, non-tender, non-distended, EXTREMITIES: Well-perfused SKIN: Intact, no rash, no trauma PSYCHIATRIC: appropriate mood and affect, cooperative Objective Lab Results 09/10/24 05:26 09/10/24 05:26 Microbiology Results Microbiology 09/09/24 16:35 Clean Void Midstream Urine Culture - Preliminary No Growth 1 Day 09/09/24 09:53 Blood - Right Arm Blood Culture - Preliminary No Growth 1 Day 09/09/24 09:48 Blood - Left Arm Blood Culture - Preliminary No Growth 1 Day 09/06/24 23:23 Blood - Left Antecubital Blood Culture - Preliminary No Growth 3 Days 09/06/24 23:23 Blood - Right Hand Blood Culture - Preliminary No Growth 3 Days Meds Allergies and Active Meds Allergies No Known Allergies Allergy (Verified 09/06/24 18:15) Active Meds: Active Medications Generic Name Dose Route Start Last Admin Trade Name Freq PRN Reason Stop Dose Admin Acetaminophen 650 mg 09/10/24 16:00 Acetaminophen 325 Mg Tablet PO 09/10/25 15:59 Q6H [facility] Ezetimibe 5 mg 09/10/24 09:00 09/10/24 09:59 Ezetimibe 10 Mg Tablet PO 09/10/25 08:59 5 mg QAM [facility] Administration Enoxaparin Sodium 40 mg 09/07/24 10:00 09/10/24 09:58 Enoxaparin 40 Mg/0.4 Ml Syringe SUBCUT 09/07/25 09:59 40 mg DAILY@10 [facility] Administration Fluoxetine HCl 20 mg 09/09/24 09:40 09/10/24 09:59 Fluoxetine 20 Mg Capsule PO 09/09/25 09:39 20 mg QAM [facility] Administration Hydromorphone HCl 0.5 mg 09/07/24 04:07 09/10/24 09:58 Hydromorphone 0.5 Mg/0.5 Ml Syringe IV-PUSH 0.5 mg Q4H PRN Administration Pain Scale 8 - 10 Ferric Sodium Gluconate 110 mls @ 110 mls/hr 09/09/24 19:30 09/10/24 09:58 Complex 125 mg/ Sodium IV 09/09/25 19:29 110 mls/hr Chloride QAM [facility] Administration Levothyroxine Sodium 25 mcg 09/09/24 22:00 09/09/24 21:01 Levothyroxine 25 Mcg Tablet PO 09/09/25 21:59 25 mcg QHS [facility] Administration Propranolol HCl 60 mg 09/09/24 09:16 09/09/24 09:30 Propranolol 20 Mg Tablet PO 60 mg QHS PRN Administration tremor(s), anxiety Sodium Chloride 0 ml 09/06/24 18:13 09/09/24 15:10 Sodium Chloride 0.9 % 10 Ml Syringe IV-PUSH 09/06/25 18:12 20 ml PRN PRN Administration Flush Tramadol HCl 50 mg 09/07/24 04:07 09/07/24 23:47 Tramadol 50 Mg Tablet PO 03/06/25 04:06 50 mg Q6H PRN Administration Pain Scale 4 - 7 A&P - Hospitalist Assessment/Plan (1) History of lung cancer: (2) Anemia: Plan 68F pmh stage IV lung cancaer, stroke, hypothyroidism, tremor, presenting with generalized fatigue and lightheadedness Assessment and Plan: 1. Acute anemia, symptomatic anemia Hgb intiially was 7.9, 1 unit of pRBCs was transfused and Hgb yesterday was 9.0,Hgb today is 8.1. Iron studies would indicate anemia of chronic disease. Last week patient finished radiation for bone mets, this could be contributing to anemia as well. wbc downtrending from 9.8 to 8.9 Pt continues to be tachycardic and febrile, her propranolol was restarted. This is a home medication that she takes for her tremor that she has not been taking since in-patient, will see if this addresses tachycardia. Blood cx still have no growth discontinued AB. observing off AB for now ID consulted for input. appreciate input Repeat UA neg Oncology consulted. input appreciated. DVT px: Lovenox Diet: regular Code: Full Home medications for chronic conditions unless stated otherwise: Hypothyroidism Tremor Discussed with patient and at bedside, question answered, they are in agreement with above plan Continue to receive IV iron while here total of 3 doses Discussed with ID plan of care, observing off antibiotics, placed on scheduled Tylenol every 6 hours, fever could be due to underlying malignancy. If patient develops new symptoms or worsening white count or fevers despite Tylenol, consideration for repeat CT chest scan. Pt decides on chemo soon after dc, for which she will go home with outpatient PT/OT Documented By: Agatha Martinez MD 09/10/24 15 46 Signed By: <Electronically signed by Agatha Martinez MD> 09/10/[address] [place] [address] Ctr Work Phone: [phone]) 892-403602-22-2025 [place] [address] Hospitalist Progress Note Signed Patient: Ofe Saravia MR#: [id number] : 1955 Acct:[id number] Age/Sex: 68 / F Adm Date: 5 Loc: Room: [address] [place] [address] Type: ADM IN Attending Dr: Agatha Martinez MD Copies to: ~ Date of Service: 09/10/2024 Subjective Subjective Narrative: Patient was evaluated at bedside, she continued to spike fevers. WBC within normal limit, she feelsbetter today, seen by oncologist last evening and received IV iron, she feels has more energy and appetite today. at bedside ID following, observing off antibiotics. Exam Physical Exam Vital Signs: Temp Pulse Resp BP Pulse Ox O2 Del Method O2 Flow Rate 99.8 F H 83 18 118/58 L 99 Room Air 2 09/10/24 08:00 09/10/24 08:00 09/10/24 08:00 09/10/24 08:00 09/10/24 08:00 09/10/24 08:00 09/10/24 08:00 Narrative: GENERAL: No apparent distress, alert, oriented HEENT: NC/AT, left sided facial droop , chronic from previous CVA CARDIOVASCULAR: Regular rate and regular rhythm, no murmurs, symmetric palpable radial pulses RESPIRATORY: nonlabored work of breathing on room air, clear to auscultation bilaterally, no wheezes/rales/rhonci ABDOMEN: Soft, non-tender, non-distended, EXTREMITIES: Well-perfused SKIN: Intact, no rash, no trauma PSYCHIATRIC: appropriate mood and affect, cooperative Objective Lab Results 09/10/24 05:26 09/10/24 05:26 Microbiology Results Microbiology 09/09/24 16:35 Clean Void Midstream Urine Culture - Preliminary No Growth 1 Day 09/09/24 09:53 Blood - Right Arm Blood Culture - Preliminary No Growth 1 Day 09/09/24 09:48 Blood - Left Arm Blood Culture - Preliminary No Growth 1 Day 09/06/24 23:23 Blood - Left Antecubital Blood Culture - Preliminary No Growth 3 Days 09/06/24 23:23 Blood - Right Hand Blood Culture - Preliminary No Growth 3 Days Meds Allergies and Active Meds Allergies No Known Allergies Allergy (Verified 09/06/24 18:15) Active Meds: Active Medications Generic Name Dose Route Start Last Admin Trade Name Freq PRN Reason Stop Dose Admin Acetaminophen 650 mg 09/10/24 16:00 Acetaminophen 325 Mg Tablet PO 09/10/25 15:59 Q6H [facility]ER[facility] Ezetimibe 5 mg 09/10/24 09:00 09/10/24 09:59 Ezetimibe 10 Mg Tablet PO 09/10/25 08:59 5 mg QAM [facility] Administration Enoxaparin Sodium 40 mg 09/07/24 10:00 09/10/24 09:58 Enoxaparin 40 Mg/0.4 Ml Syringe SUBCUT 09/07/25 09:59 40 mg DAILY@10 [facility] Administration Fluoxetine HCl 20 mg 09/09/24 09:40 09/10/24 09:59 Fluoxetine 20 Mg Capsule PO 09/09/25 09:39 20 mg QAM [facility] Administration Hydromorphone HCl 0.5 mg 09/07/24 04:07 09/10/24 09:58 Hydromorphone 0.5 Mg/0.5 Ml Syringe IV-PUSH 0.5 mg Q4H PRN Administration Pain Scale 8 - 10 Ferric Sodium Gluconate 110 mls @ 110 mls/hr 09/09/24 19:30 09/10/24 09:58 Complex 125 mg/ Sodium IV 09/09/25 19:29 110 mls/hr Chloride QAM [facility] Administration Levothyroxine Sodium 25 mcg 09/09/24 22:00 09/09/24 21:01 Levothyroxine 25 Mcg Tablet PO 09/09/25 21:59 25 mcg QHS [facility] Administration Propranolol HCl 60 mg 09/09/24 09:16 09/09/24 09:30 Propranolol 20 Mg Tablet PO 60 mg QHS PRN Administration tremor(s), anxiety Sodium Chloride 0 ml 09/06/24 18:13 09/09/24 15:10 Sodium Chloride 0.9 % 10 Ml Syringe IV-PUSH 09/06/25 18:12 20 ml PRN PRN Administration Flush Tramadol HCl 50 mg 09/07/24 04:07 09/07/24 23:47 Tramadol 50 Mg Tablet PO 03/06/25 04:06 50 mg Q6H PRN Administration Pain Scale 4 - 7 A&P - Hospitalist Assessment/Plan (1) History of lung cancer: (2) Anemia: Plan 68F pmh stage IV lung cancaer, stroke, hypothyroidism, tremor, presenting with generalized fatigue and lightheadedness Assessment and Plan: 1. Acute anemia, symptomatic anemia Hgb intiially was 7.9, 1 unit of pRBCs was transfused and Hgb yesterday was 9.0,Hgb today is 8.1. Iron studies would indicate anemia of chronic disease. Last week patient finished radiation for bone mets, this could be contributing to anemia as well. wbc downtrending from 9.8 to 8.9 Pt continues to be tachycardic and febrile, her propranolol was restarted. This is a home medication that she takes for her tremor that she has not been taking since in-patient, will see if this addresses tachycardia. Blood cx still have no growth discontinued AB. observing off AB for now ID consulted for input. appreciate input Repeat UA neg Oncology consulted. input appreciated. DVT px: Lovenox Diet: regular Code: Full Home medications for chronic conditions unless stated otherwise: Hypothyroidism Tremor Discussed with patient and at bedside, question answered, they are in agreement with above plan Continue to receive IV iron while here total of 3 doses Discussed with ID plan of care, observing off antibiotics, placed on scheduled Tylenol every 6 hours, fever could be due to underlying malignancy. If patient develops new symptoms or worsening white count or fevers despite Tylenol, consideration for repeat CT chest scan. Pt decides on chemo soon after dc, for which she will go home with outpatient PT/OT Documented By: Agatha Martinez MD 09/10/24 15 46 Signed By: 09/10/24 1551 [facility]02-22-2025 Progress note Author Elizabeth Elizabeth [facility] CenterNote Date/TimeFebruary 2024 9:12am [place] [address] Infect. Disease Progress Note Signed Patient: Ofe Saravia MR#: [id number] : 1955 Acct:[id number] Age/Sex: 68 / F Adm Date: 5 Loc: Room: [address] [place] [address] Type: ADM IN Attending Dr: Agatha Martinez MD Copies to: ~ Date of Service: 09/10/2024 Subjective Interval history: Continues to have intermittent temperature spikes. I stopped her antibiotics yesterday given negative infectious workup to date. Patient endorses she is having a very good morning this morning. Did have loose stools upon awakening. No abdominal pain. Eating breakfast. Still having pain in her rightshoulder and right hip from her metastatic disease. Yesterday repeat blood cultures weredrawn and are pending. Urine culture was also sent. Exam Physical Exam Vital Signs: Vital Signs Temp Pulse Resp BP Pulse Ox O2 Del Method 09/10/24 04:00 98.1 F 74 18 108/57 L 96 Room Air 09/10/24 02:27 98.9 F 09/10/24 00:00 101.4 F H 91 18 121/50 L 95 Room Air 09/09/24 20:00 Room Air 09/09/24 20:00 98.2 F 82 18 111/56 L 96 Room Air 09/09/24 16:41 98.8 F 09/09/24 15:15 102.9 F H 84 18 117/58 L 97 CPAP 09/09/24 12:00 98.3 F 86 18 118/58 L 96 Room Air 09/09/24 09:30 99.0 F Intake and Output 09/09/24 09/10/24 09/10/24 23:59 07:59 15:59 Intake Total 960 / 1110 600 / 600 Output Total 200 / 200 900 / 900 Balance 760 / 910 -300 / -300 Intake: Oral 960 / 1060 600 / 600 Output: Urine 200 / 200 900 / 900 Other: # Unmeasured Voids 3 # Bowel Movements 4 0 Weight 92.5 kg Date of Last Bowel Movement 09/09/24 Patient Weight 09/10/24 23:59 Weight 92.5 kg Const General: cooperative, comfortable and no acute distress Other: R sided facial droop from prior CVA HEENT Head: normal to inspection Ears: hearing grossly normal bilaterally Nose: external nose normal Mouth: oral mucosae normal Eyes General: appearance normal, both eyes and all related structures Neck Neck: normal visual inspection Chest Chest palpation & inspection: normal inspection of the chest Resp Effort & Inspection: normal respiratory effort, able to speak in complete sentences, no cough and no respiratory distress Auscultation: clear to auscultation bilaterally, no crackles and no rhonchi Cardio Rate: regular rate Rhythm: regular rhythm GI Inspection: normal to inspection Palpation: soft and nontender Auscultation: normal bowel sounds Skin General: no rashes or lesions noted Neuro General: patient oriented x3 Extrem General: normal to inspection Objective Labs CBC/BMP: CBC, BMP 09/10/24 05:26 Corrected WBC 9.0 RBC 2.82 L Hgb 8.1 L Hct 24.6 L Plt Count 387 Sodium 137 Potassium 3.7 Chloride 103 Carbon Dioxide 27.4 Anion Gap 10.3 BUN 9 Creatinine 0.44 L Calcium 8.2 L Labs: 09/10/24 05:26 BUN 9 Creatinine 0.44 L 09/09/24 16:35 Urine Color Yellow Urine Appearance Clear Urine pH 6.5 Ur Specific [place] 1.017 Urine Protein 30 H Urine Glucose (UA) Normal Urine Ketones Trace H Urine Occult Blood 1+ H Urine Nitrite Negative Urine Bilirubin Negative Urine Urobilinogen Normal Ur Leukocyte Esterase Negative Urine RBC 3-4 Urine WBC 3-4 Ur Squamous Epith Cells 3-4 H Urine Bacteria Rare Hyaline Casts None Urine Mucus Rare Microbiology Microbiology: 09/06/24 23:23 Blood Culture - Preliminary Blood - Left Antecubital No Growth 3 Days 09/06/24 23:23 Blood Culture - Preliminary Blood - Right Hand No Growth 3 Days 09/09/24 16:35 Urine Culture - Pending Clean Void Midstream 09/09/24 09:53 Blood Culture - Pending Blood - Right Arm 09/09/24 09:48 Blood Culture - Pending Blood - Left Arm 09/08/24 12:10 Respiratory Panel (PCR) - Final Nasopharyngeal Allergies and Medications Allergies and Active Meds Allergies No Known Allergies Allergy (Verified 09/06/24 18:15) Active Medications Acetaminophen (Acetaminophen 325 Mg Tablet) 650 mg PO Q6H PRN PRN Reason: pain or fever Stop: 09/07/25 14:47 Last Admin: 09/10/24 00:03 Dose: 650 mg Ezetimibe ([facility] 10 Mg Tablet) [facility] Stop: 09/10/25 08:59 Enoxaparin Sodium (Enoxaparin 40 Mg/0.4 Ml Syringe) 40 mg SUBCUT DAILY@10 [facility] Stop: 09/07/25 09:59 Last Admin: 09/09/24 11:28 Dose: Not Given Fluoxetine HCl (Fluoxetine 20 Mg Capsule) [facility] Stop: 09/09/25 09:39 Last Admin: 09/09/24 12:41 Dose: 20 mg Hydromorphone HCl (Hydromorphone 0.5 Mg/0.5 Ml Syringe) 0.5 mg IV-PUSH Q4H PRN PRN Reason: Pain Scale 8 - 10 Last Admin: 09/10/24 02:15 Dose: 0.5 mg Ferric Sodium Gluconate Complex 125 mg/ Sodium Chloride 110 mls @ 110 mls/hr IVQAM [facility] Stop: 09/09/25 19:29 Last Admin: 09/09/24 20:59 Dose: 110 mls/hr Levothyroxine Sodium (Levothyroxine 25 Mcg Tablet) 25 mcg PO QHS [facility] Stop: 09/09/25 21:59 Last Admin: 09/09/24 21:01 Dose: 25 mcg Propranolol HCl (Propranolol 20 Mg Tablet) 60 mg PO QHS PRN PRN Reason: tremor(s), anxiety Last Admin: 09/09/24 09:30 Dose: 60 mg Sodium Chloride (Sodium Chloride 0.9 % 10 Ml Syringe) 0 ml IV-PUSH PRN PRN PRN Reason: Flush Stop: 09/06/25 18:12 Last Admin: 09/09/24 15:10 Dose: 20 ml Tramadol HCl (Tramadol 50 Mg Tablet) 50 mg PO Q6H PRN PRN Reason: Pain Scale 4 - 7 Stop: 03/06/25 04:06 Last Admin: 09/07/24 23:47 Dose: 50 mg A&P - Infectious Disease Assessment/Plan (1) Intermittent fever: (2) History of lung cancer: (3) Metastatic disease: (4) Loose stools: Plan Patient without significant consolidation seen on chest CT but upon looking at the read increasing adjacent airspace opacity near the mass in the left upper lobe. She does not have any respiratory symptoms i.e. no cough or shortness of breath. Patient initially was on ceftriaxone and azithromycin but still spikingfevers. Therefore this was stopped. She does have metastatic lesions in her right shoulder and right iliac bone. Of course I do not know if these could potentially be contributing to her fevers. She has no cough or sputum production to suggest she has postobstructive pneumonia or pneumonia of any sort. Upper respiratory panel was negative for targeted pathogens on admission. Will discuss with the hospitalist with regard to consideration of repeating CT of the chest perhaps in thenext 1 to 2 days to further follow of his left upperlobe finding. Given ceftriaxone and azithromycin had been given initially and did not help with the fevers could consider broader coverage to include anaerobes. Documented By: Elizabeth Elizabeth MD 09/10/24 0859 Signed By: <Electronically signed by MD Elizabeth Elizabeth> 09/10/2412 [facility] Work Phone: 1(583) 890-126402-22-2025 [place] [address] Infect. Disease Progress Note Signed Patient: Ofe Saravia MR#: [id number] : 1955 Acct:[id number] Age/Sex: 68 / F Adm Date: 5 Loc: Room: [address] [place] [address] Type: ADM IN Attending Dr: Agatha Martinez MD Copies to: ~ Date of Service: 09/10/2024 Subjective Interval history: Continues to have intermittent temperature spikes. I stopped her antibiotics yesterday given negative infectious workup to date. Patient endorses she is having a very good morning this morning. Did have loose stools upon awakening. No abdominal pain. Eating breakfast. Still having pain in her rightshoulder and right hip from her metastatic disease. Yesterday repeat blood cultures weredrawn and are pending. Urine culture was also sent. Exam Physical Exam Vital Signs: Vital Signs Temp Pulse Resp BP Pulse Ox O2 Del Method 09/10/24 04:00 98.1 F 74 18 108/57 L 96 Room Air 09/10/24 02:27 98.9 F 09/10/24 00:00 101.4 F H 91 18 121/50 L 95 Room Air 09/09/24 20:00 Room Air 09/09/24 20:00 98.2 F 82 18 111/56 L 96 Room Air 09/09/24 16:41 98.8 F 09/09/24 15:15 102.9 F H 84 18 117/58 L 97 CPAP 09/09/24 12:00 98.3 F 86 18 118/58 L 96 Room Air 09/09/24 09:30 99.0 F Intake and Output 09/09/24 09/10/24 09/10/24 23:59 07:59 15:59 Intake Total 960 / 1110 600 / 600 Output Total 200 / 200 900 / 900 Balance 760 / 910 -300 / -300 Intake: Oral 960 / 1060 600 / 600 Output: Urine 200 / 200 900 / 900 Other: # Unmeasured Voids 3 # Bowel Movements 4 0 Weight 92.5 kg Date of Last Bowel Movement 09/09/24 Patient Weight 09/10/24 23:59 Weight 92.5 kg Const General: cooperative, comfortable and no acute distress Other: R sided facial droop from prior CVA HEENT Head: normal to inspection Ears: hearing grossly normal bilaterally Nose: external nose normal Mouth: oral mucosae normal Eyes General: appearance normal, both eyes and all related structures Neck Neck: normal visual inspection Chest Chest palpation & inspection: normal inspection of the chest Resp Effort & Inspection: normal respiratory effort, able to speak in complete sentences, no cough and no respiratory distress Auscultation: clear to auscultation bilaterally, no crackles and no rhonchi Cardio Rate: regular rate Rhythm: regular rhythm GI Inspection: normal to inspection Palpation: soft and nontender Auscultation: normal bowel sounds Skin General: no rashes or lesions noted Neuro General: patient oriented x3 Extrem General: normal to inspection Objective Labs CBC/BMP: CBC, BMP 09/10/24 05:26 Corrected WBC 9.0 RBC 2.82 L Hgb 8.1 L Hct 24.6 L Plt Count 387 Sodium 137 Potassium 3.7 Chloride 103 Carbon Dioxide 27.4 Anion Gap 10.3 BUN 9 Creatinine 0.44 L Calcium 8.2 L Labs: 09/10/24 05:26 BUN 9 Creatinine 0.44 L 09/09/24 16:35 Urine Color Yellow Urine Appearance Clear Urine pH 6.5 Ur Specific [place] 1.017 Urine Protein 30 H Urine Glucose (UA) Normal Urine Ketones Trace H Urine Occult Blood 1+ H Urine Nitrite Negative Urine Bilirubin Negative Urine Urobilinogen Normal Ur Leukocyte Esterase Negative Urine RBC 3-4 Urine WBC 3-4 Ur Squamous Epith Cells 3-4 H Urine Bacteria Rare Hyaline Casts None Urine Mucus Rare Microbiology Microbiology: 09/06/24 23:23 Blood Culture - Preliminary Blood - Left Antecubital No Growth 3 Days 09/06/24 23:23 Blood Culture - Preliminary Blood - Right Hand No Growth 3 Days 09/09/24 16:35 Urine Culture - Pending Clean Void Midstream 09/09/24 09:53 Blood Culture - Pending Blood - Right Arm 09/09/24 09:48 Blood Culture - Pending Blood - Left Arm 09/08/24 12:10 Respiratory Panel (PCR) - Final Nasopharyngeal Allergies and Medications Allergies and Active Meds Allergies No Known Allergies Allergy (Verified 09/06/24 18:15) Active Medications Acetaminophen (Acetaminophen 325 Mg Tablet) 650 mg PO Q6H PRN PRN Reason: pain or fever Stop: 09/07/25 14:47 Last Admin: 09/10/24 00:03 Dose: 650 mg Ezetimibe (Ezetimibe 10 Mg Tablet) 5 mg PO QAM [facility] Stop: 09/10/25 08:59 Enoxaparin Sodium (Enoxaparin 40 Mg/0.4 Ml Syringe) 40 mg SUBCUT DAILY@10 [facility] Stop: 09/07/25 09:59 Last Admin: 09/09/24 11:28 Dose: Not Given Fluoxetine HCl (Fluoxetine 20 Mg Capsule) 20 mg PO QAM [facility] Stop: 09/09/25 09:39 Last Admin: 09/09/24 12:41 Dose: 20 mg Hydromorphone HCl (Hydromorphone 0.5 Mg/0.5 Ml Syringe) 0.5 mg IV-PUSH Q4H PRN PRN Reason: Pain Scale 8 - 10 Last Admin: 09/10/24 02:15 Dose: 0.5 mg Ferric Sodium Gluconate Complex 125 mg/ Sodium Chloride 110 mls @ 110 mls/hr IVQAM [facility] Stop: 09/09/25 19:29 Last Admin: 09/09/24 20:59 Dose: 110 mls/hr Levothyroxine Sodium (Levothyroxine 25 Mcg Tablet) 25 mcg PO QHS [facility] Stop: 09/09/25 21:59 Last Admin: 09/09/24 21:01 Dose: 25 mcg Propranolol HCl (Propranolol 20 Mg Tablet) 60 mg PO QHS PRN PRN Reason: tremor(s), anxiety Last Admin: 09/09/24 09:30 Dose: 60 mg Sodium Chloride (Sodium Chloride 0.9 % 10 Ml Syringe) 0 ml IV-PUSH PRN PRN PRN Reason: Flush Stop: 09/06/25 18:12 Last Admin: 09/09/24 15:10 Dose: 20 ml Tramadol HCl (Tramadol 50 Mg Tablet) 50 mg PO Q6H PRN PRN Reason: Pain Scale 4 - 7 Stop: 03/06/25 04:06 Last Admin: 09/07/24 23:47 Dose: 50 mg A&P - Infectious Disease Assessment/Plan (1) Intermittent fever: (2) History of lung cancer: (3) Metastatic disease: (4) Loose stools: Plan Patient without significant consolidation seen on chest CT but upon looking at the read increasing adjacent airspace opacity near the mass in the left upper lobe. She does not have any respiratory symptoms i.e. no cough or shortness of breath. Patient initially was on ceftriaxone and azithromycin but still spikingfevers. Therefore this was stopped. She does have metastatic lesions in her right shoulder and right iliac bone. Of course I do not know if these could potentially be contributing to her fevers. She has no cough or sputum production to suggest she has postobstructive pneumonia or pneumonia of any sort. Upper respiratory panel was negative for targeted pathogens on admission. Will discuss with the hospitalist with regard to consideration of repeating CT of the chest perhaps in thenext 1 to 2 days to further follow of his left upperlobe finding. Given ceftriaxone and azithromycin had been given initially and did not help with the fevers could consider broader coverage to include anaerobes. Documented By: Elizabeth Elizabeth MD 09/10/24 0859 Signed By: 09/10/24 0912 [facility]02-21-2025 Consult note Author Rodolfo Valdez [facility] CenterNote Date/TimeFebruary 2024 6:13pm [place] [address] Med Onc/Hem Consult Note Signed Patient: Ofe Saravia MR#: [id number] : 1955 Acct:[id number] Age/Sex: 68 / F Adm Date: 5 Loc: Room: [address] [place] [address] Type: ADM IN Attending Dr: Agatha Martinez MD Copies to: Asya Clements Jr, MD Rodolfo Grajeda MD~ CONSULT DATE: 09/09/2024 REQUESTING PROVIDER: Agatha Martinez MD REASON FOR CONSULT: New diagnosis squamous cell lung cancer. HISTORY OF PRESENT: This a 68-year-old woman with known history of CVA prior history of seizures last in 2006 who was recently diagnosed with lung cancer on scans July 01, 2004. She was found to have an expansile lesion involving the anterior superioraspect of the glenoid with extension to the adjacent base of thecoracoid process and soft tissues associated with a displaced pathologic fracture of the coracoid process. She was found to have a left upper lobe mass measuring 3.4 x 2.9 x 3.1 cm and adjacent satellite nodules in addition to a right iliac metastasis. Biopsy right shoulder soft tissue mass was then done on August 10, 2024 consistent with metastaticsquamous cell carcinoma biomarkers recently came backshowing PD-L1 CPS score of 50. She has had palliative radiation to the right shoulder as well as right iliac metastasis. Current admission was prompted by feelings of presyncope and admission she was found to be acutely anemic. She has no evidence of bleeding nor of hemolysis. Inpatient laboratory is consistent with iron deficiency based on degree of symptoms, would be reasonable to transfuse her or give her iron infusions. Following her recent palliative radiation, she was scheduled to start on carboplatin Taxol and Keytruda in addition to Xgeva after dental clearance. Shewill also need to be replete on calcium. Review of Systems Review of Systems Review of systems: feels a little better than yesterday. legs R>L swelling chronic. no abdominal pain. [facility] Medical History Chronic bronchitis Anxiety Seizures history of focal seizures, Last known seizure was 2006 Paralysis right side of face Tremor left hand Stroke Vertigo Kidney stones Hypothyroidism Hyperlipidemia Surgical History History of cosmetic surgery facial History of D&C History of neurologic surgery brain stem History of ankle surgery left H/O eye surgery x4 right, x1 left Family History Father Cancer of kidney Aneurysm Mother Alive and well Brother Heart disease Heart valve problem Brother Heart disease Pacemaker Stroke Social History Smoking Status: Former smoker Tobacco Type: cigarettes Substance Use Type: None Allergies No Known Allergies Allergy (Verified 09/06/24 18:15) Home Medications ezetimibe 10 mg tablet (Zetia) 5 mg PO QAM 05/31/24 [History Confirmed 09/07/24] fluoxetine 20 mg capsule 20 mg PO QAM 05/31/24 [History Confirmed 09/07/24] levothyroxine 25 mcg tablet 25 mcg PO QHS 05/31/24 [History Confirmed 09/07/24] meloxicam 15 mg tablet 15 mg PO BID 05/31/24 [History Confirmed 09/07/24] propranolol 60 mg tablet 60 mg PO QHS PRN tremor(s), anxiety 05/31/24 [History Confirmed 09/07/24] acetaminophen 325 mg tablet (Tylenol) 325 mg PO Q6HR PRN pain 06/07/24 [History Confirmed 09/07/24] oxybutynin chloride 5 mg tablet 5 mg PO BID-TID PRN bladder spasms #30 tabs 06/07/24 [Rx Confirmed 09/07/24] hydrochlorothiazide 25 mg tablet 25 mg PO .PRN Kidney Stones 09/07/24 [History Confirmed 09/07/24] tramadol 50 mg tablet 50 mg PO .PRN PRN pain 09/07/24 [History Confirmed 09/07/24] Exam Physical Exam Vital Signs: Temp Pulse Resp BP Pulse Ox O2 Del Method O2 Flow Rate 98.8 F 84 18 117/58 L 97 CPAP 2 09/09/24 16:41 09/09/24 15:15 09/09/24 15:15 09/09/24 15:15 09/09/24 15:15 09/09/24 15:15 09/08/24 08:00 Narrative: very pleasant age appropriate woman who is alert and oriented x 3. has some difficulty moving her right upper extremity. abdomen is soft. mild edema to knees bilateral lower extremities right > left. neuro appears to be at baseline. LABS 09/09/24 16:35: Urine Color Yellow, Urine Appearance Clear, Urine pH 6.5, Ur Specific [place] 1.017, Urine Protein 30 H, Urine Glucose (UA) Normal, Urine Ketones Trace H, Urine Occult Blood 1+ H, Urine Nitrite Negative, Urine Bilirubin Negative, Urine Urobilinogen Normal, Ur Leukocyte Esterase Negative, Urine RBC 3-4, Urine WBC 3-4, Ur Squamous Epith Cells 3-4 H, Urine Bacteria Rare, Hyaline Casts None, Urine Mucus Rare 09/09/24 05:03: Corrected WBC 8.9, RBC 2.75 L, Hgb 8.0 L, Hct 24.0 L, MCV 87.3, MCH 29.1, MCHC 33.4, RDW 14.8, Plt Count 424, MPV 7.4, PHA Creatinine Clear 83.34, Sodium 139, Potassium 4.1, Chloride 103, Carbon Dioxide 28.4, Anion Gap 11.7, BUN 5 L, Creatinine 0.44 L, Est GFR (CKD-EPI) > 60.0, Glucose 105 H, Calcium 7.9 L Assessment & Plan (1) History of lung cancer: PLAN: 68 y woman with 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 acute presentation with anemia of unclear etiology. has mild thrombocythemia. Suspect iron deficiency but can't explain the sudden acuity of the anemia. Will be starting carbo / Taxol / Keytruda once she follows up with Dr. Murrieta. 1. venofer infusion daily x 3. 2. F/u with Dr. Flanagan [facility]. Code(s): Z85.118 - Personal history of other malignant neoplasm of bronchus and lung No Active Chemotherapy Documented By: Rodolfo Valdez MD 09/09/24 17 51 Signed By: <Electronically signed by Rodolfo Valdez MD> 09/09/24 5269 [facility] Work Phone: 1(271) 961-201902-21-2025 [place] [id number] Med Onc/Hem Consult Note Signed Patient: Ofe Saravia MR#: [id number] : 1955 Acct:[id number] Age/Sex: 68 / F Adm Date: 5 Loc: Room: [address] [place] [address] Type: ADM IN Attending Dr: Agatha Martinez MD Copies to: DO Agatha Schroeder Jr, MD Vivek V Abhyankar, MD~ CONSULT DATE: 09/09/2024 REQUESTING PROVIDER: Agatha Martinez MD REASON FOR CONSULT: New diagnosis squamous cell lung cancer. HISTORY OF PRESENT: This a 68-year-old woman with known history of CVA prior history of seizures last in 2006 who was recently diagnosed with lung cancer on scans July 01, 2004. She was found to have an expansile lesion involving the anterior superioraspect of the glenoid with extension to the adjacent base of thecoracoid process and soft tissues associated with a displaced pathologic fracture of the coracoid process. She was found to have a left upper lobe mass measuring 3.4 x 2.9 x 3.1 cm and adjacent satellite nodules in addition to a right iliac metastasis. Biopsy right shoulder soft tissue mass was then done on August 10, 2024 consistent with metastaticsquamous cell carcinoma biomarkers recently came backshowing PD-L1 CPS score of 50. She has had palliative radiation to the right shoulder as well as right iliac metastasis. Current admission was prompted by feelings of presyncope and admission she was found to be acutely anemic. She has no evidence of bleeding nor of hemolysis. Inpatient laboratory is consistent with iron deficiency based on degree of symptoms, would be reasonable to transfuse her or give her iron infusions. Following her recent palliative radiation, she was scheduled to start on carboplatin Taxol and Keytruda in addition to Xgeva after dental clearance. Shewill also need to be replete on calcium. Review of Systems Review of Systems Review of systems: feels a little better than yesterday. legs R>L swelling chronic. no abdominal pain. [facility] Medical History Chronic bronchitis Anxiety Seizures history of focal seizures, Last known seizure was 2006 Paralysis right side of face Tremor left hand Stroke Vertigo Kidney stones Hypothyroidism Hyperlipidemia Surgical History History of cosmetic surgery facial History of D&C History of neurologic surgery brain stem History of ankle surgery left H/O eye surgery x4 right, x1 left Family History Father Cancer of kidney Aneurysm Mother Alive and well Brother Heart disease Heart valve problem Brother Heart disease Pacemaker Stroke Social History Smoking Status: Former smoker Tobacco Type: cigarettes Substance Use Type: None Allergies No Known Allergies Allergy (Verified 09/06/24 18:15) Home Medications ezetimibe 10 mg tablet (Zetia) 5 mg PO QAM 05/31/24 [History Confirmed 09/07/24] fluoxetine 20 mg capsule 20 mg PO QAM 05/31/24 [History Confirmed 09/07/24] levothyroxine 25 mcg tablet 25 mcg PO QHS 05/31/24 [History Confirmed 09/07/24] meloxicam 15 mg tablet 15 mg PO BID 05/31/24 [History Confirmed 09/07/24] propranolol 60 mg tablet 60 mg PO QHS PRN tremor(s), anxiety 05/31/24 [History Confirmed 09/07/24] acetaminophen 325 mg tablet (Tylenol) 325 mg PO Q6HR PRN pain 06/07/24 [History Confirmed 09/07/24] oxybutynin chloride 5 mg tablet 5 mg PO BID-TID PRN bladder spasms #30 tabs 06/07/24 [Rx Confirmed 09/07/24] hydrochlorothiazide 25 mg tablet 25 mg PO .PRN Kidney Stones 09/07/24 [History Confirmed 09/07/24] tramadol 50 mg tablet 50 mg PO .PRN PRN pain 09/07/24 [History Confirmed 09/07/24] Exam Physical Exam Vital Signs: Temp Pulse Resp BP Pulse Ox O2 Del Method O2 Flow Rate 98.8 F 84 18 117/58 L 97 CPAP 2 09/09/24 16:41 09/09/24 15:15 09/09/24 15:15 09/09/24 15:15 09/09/24 15:15 09/09/24 15:15 09/08/24 08:00 Narrative: very pleasant age appropriate woman who is alert and oriented x 3. has some difficulty moving her right upper extremity. abdomen is soft. mild edema to knees bilateral lower extremities right > left. neuro appears to be at baseline. LABS 09/09/24 16:35: Urine Color Yellow, Urine Appearance Clear, Urine pH 6.5, Ur Specific [place] 1.017, Urine Protein 30 H, Urine Glucose (UA) Normal, Urine Ketones Trace H, Urine Occult Blood 1+ H, Urine Nitrite Negative, Urine Bilirubin Negative, Urine Urobilinogen Normal, Ur Leukocyte Esterase Negative, Urine RBC 3-4, Urine WBC 3-4, Ur Squamous Epith Cells 3-4 H, Urine Bacteria Rare, Hyaline Casts None, Urine Mucus Rare 09/09/24 05:03: Corrected WBC 8.9, RBC 2.75 L, Hgb 8.0 L, Hct 24.0 L, MCV 87.3, MCH 29.1, MCHC 33.4, RDW 14.8, Plt Count 424, MPV 7.4, PHA Creatinine Clear 83.34, Sodium 139, Potassium 4.1, Chloride 103, Carbon Dioxide 28.4, Anion Gap 11.7, BUN 5 L, Creatinine 0.44 L, Est GFR (CKD-EPI) > 60.0, Glucose 105 H, Calcium 7.9 L Assessment & Plan (1) History of lung cancer: PLAN: 68 y woman with 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 acute presentation with anemia of unclear etiology. has mild thrombocythemia. Suspect iron deficiency but can't explain the sudden acuity of the anemia. Will be starting carbo / Taxol / Keytruda once she follows up with Dr. Murrieta. 1. venofer infusion daily x 3. 2. F/u with Dr. Flanagan [facility]. Code(s): Z85.118 - Personal history of other malignant neoplasm of bronchus and lung No Active Chemotherapy Documented By: Rodolfo Valdez MD 09/09/24 17 51 Signed By: 09/09/24 1813 [facility]02-21-2025 Consult note Author Elizabeth Elizabeth [facility] CenterNote Date/TimeFebruary 2024 2:23pm [place] [address] Infect. Disease Consult Note Signed Patient: Ofe Saravia MR#: [id number] : 1955 Acct:[id number] Age/Sex: 68 / F Adm Date: 5 Loc: Room: [address] [place] [address] Type: ADM IN Attending Dr: Agatha Martinez MD Copies to: DO Elizabeth Schroeder Jr, MD Obaydah M Daromar, MD~ HPI Data of Consult Consult date: 09/09/24 Requesting Physician: Agatha Martinez MD Primary Care Provider: Asya Clements JR, DO Consult Narrative History of present illness: Ms. Saravia is a 68 year old female with known lung cancer with metastasis to herright shoulder and right hip who presented due to extreme weakness and anemia. She did not have a significant fever when she arrived here but had to elevated temperature spikes on the to 101.0 at 1555 and 101.2 at midnight on the . Prior to these fevers she had already been started on ceftriaxone and azithromycin and these fevers occurred while on this medication. She is being treated for pneumonia however CT of the chest does not actually have a pneumoniabased on read as well as me looking at the films themselves. She denies any respiratory symptoms. She developed diarrhea yesterday but prior to this had been on a lot of pain medications which was causing her some mental status issues. 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 I received a consult due to ongoing fever. Admission blood culturesremain negative at 2 days. Upper respiratory panel negative for targets. CT ofthe chest as above with the CT of the abdomen pelvis also not showing anything acute aside from the metastasis in the right iliac bone. CC: Agatha Martinez MD Review of Systems Review of Systems All other systems reviewed & are negative unless noted below or in HPI [facility] Medical History (Updated 09/09/24 @ 14:18 by Elizabeth Elizabeth MD) Chronic bronchitis Anxiety Seizures history of focal seizures, Last known seizure was 2006 Paralysis right side of face Tremor left hand Stroke Vertigo Kidney stones Hypothyroidism Hyperlipidemia Surgical History History of cosmetic surgery facial History of D&C History of neurologic surgery brain stem History of ankle surgery left H/O eye surgery x4 right, x1 left Family History Father Cancer of kidney Aneurysm Mother Alive and well Brother Heart disease Heart valve problem Brother Heart disease Pacemaker Stroke Social History Smoking Status: Former smoker Tobacco Type: cigarettes Substance Use Type: None Allergies and Medications Allergies and Active Meds Allergies No Known Allergies Allergy (Verified 09/06/24 18:15) Active Medications Acetaminophen (Acetaminophen 325 Mg Tablet) 650 mg PO Q6H PRN PRN Reason: pain or fever Stop: 09/07/25 14:47 Last Admin: 09/08/24 23:31 Dose: 650 mg Azithromycin (Azithromycin 250 Mg Tablet) 500 mg PO Q24H [facility] Last Admin: 09/08/24 20:43 Dose: 500 mg Ezetimibe (Ezetimibe 10 Mg Tablet) 5 mg PO QAM [facility] Stop: 09/10/25 08:59 Enoxaparin Sodium (Enoxaparin 40 Mg/0.4 Ml Syringe) 40 mg SUBCUT DAILY@10 [facility] Stop: 09/07/25 09:59 Last Admin: 09/09/24 11:28 Dose: Not Given Fluoxetine HCl (Fluoxetine 20 Mg Capsule) 20 mg PO QAM [facility] Stop: 09/09/25 09:39 Last Admin: 09/09/24 12:41 Dose: 20 mg Hydromorphone HCl (Hydromorphone 0.5 Mg/0.5 Ml Syringe) 0.5 mg IV-PUSH Q4H PRN PRN Reason: Pain Scale 8 - 10 Last Admin: 09/09/24 09:36 Dose: 0.5 mg Ceftriaxone Sodium (Rocephin) 1 gm in 50 mls @ 100 mls/hr IV Q24H [facility] Last Infusion: 09/09/24 00:13 Dose: Infused Levothyroxine Sodium (Levothyroxine 25 Mcg Tablet) 25 mcg PO QHS [facility] Stop: 09/09/25 21:59 Propranolol HCl (Propranolol 20 Mg Tablet) 60 mg PO QHS PRN PRN Reason: tremor(s), anxiety Last Admin: 09/09/24 09:30 Dose: 60 mg Sodium Chloride (Sodium Chloride 0.9 % 10 Ml Syringe) 0 ml IV-PUSH PRN PRN PRN Reason: Flush Stop: 09/06/25 18:12 Last Admin: 09/09/24 09:36 Dose: 10 ml Tramadol HCl (Tramadol 50 Mg Tablet) 50 mg PO Q6H PRN PRN Reason: Pain Scale 4 - 7 Stop: 03/06/25 04:06 Last Admin: 09/07/24 23:47 Dose: 50 mg Exam Physical Exam Vital Signs: Vital Signs Temp Pulse Resp BP Pulse Ox O2 Del Method 09/09/24 12:00 98.3 F 86 18 118/58 L 96 Room Air 09/09/24 09:30 99.0 F 09/09/24 08:00 Room Air 09/09/24 08:00 99.6 F H 104 H 18 131/62 96 Room Air 09/09/24 04:00 98.5 F 86 18 132/61 98 CPAP 09/09/24 01:06 99.2 F H 09/09/24 00:00 101.2 F H 100 18 123/57 L 93 L CPAP 09/08/24 20:00 Room Air 09/08/24 20:00 98.6 F 88 18 118/56 L 98 Room Air 09/08/24 17:00 99.7 F H 09/08/24 15:55 101.0 F H 107 H 16 121/56 L 95 CPAP Intake and Output 09/08/24 09/09/24 09/09/24 23:59 07:59 15:59 Intake Total 1360 / 1710 150 / 150 Balance 1360 / 1710 150 / 150 Intake: IV 50 / 50 cefTRIAXone 1GM-*NS* 1 gm In 50 50 / 50 ml @ 100 mls/hr IV Q24H [facility] Rx #:[id number] Oral 1360 / 1660 100 / 100 Other: # Unmeasured Voids 5 3 # Bowel Movements 1 0 Weight 94.1 kg Date of Last Bowel Movement 09/08/24 09/09/24 Patient Weight 09/09/24 23:59 Weight 94.1 kg Const General: cooperative, comfortable and no acute distress Other: R sided facial droop from prior CVA HEENT Head: normal to inspection Ears: hearing grossly normal bilaterally Nose: external nose normal Mouth: oral mucosae normal Eyes General: appearance normal, both eyes and all related structures Neck Neck: normal visual inspection Chest Chest palpation & inspection: normal inspection of the chest Resp Effort & Inspection: normal respiratory effort, able to speak in complete sentences, no cough and no respiratory distress Auscultation: clear to auscultation bilaterally, no crackles and no rhonchi Cardio Rate: regular rate Rhythm: regular rhythm GI Inspection: normal to inspection Palpation: soft and nontender Auscultation: normal bowel sounds Skin General: no rashes or lesions noted Neuro General: patient oriented x3 Extrem General: normal to inspection Results - Infectious Disease Labs 09/09/24 05:03 09/09/24 05:03 Labs: 09/09/24 05:03: Corrected WBC 8.9, BUN 5 L, Creatinine 0.44 L 09/07/24 02:50 Urine Color Yellow Urine Appearance Clear Urine pH 6.0 Ur Specific [place] >1.050 H Urine Protein 20 H Urine Glucose (UA) Normal Urine Ketones 1+ H Urine Occult Blood Trace H Urine Nitrite Negative Urine Bilirubin Negative Urine Urobilinogen Normal Ur Leukocyte Esterase Negative Urine RBC 1-2 Urine WBC 3-4 Ur Squamous Epith Cells 3-4 H Urine Bacteria None seen Hyaline Casts None Microbiology Results Microbiology Narrative: Microbiology - Results from entire visit 09/06/24 23:23 Blood - Left Antecubital Blood Culture - Preliminary No Growth 2 Days 09/06/24 23:23 Blood - Right Hand Blood Culture - Preliminary No Growth 2 Days 09/08/24 12:10 Nasopharyngeal Respiratory Panel (PCR) - Final 09/06/24 21:30 Nasopharyngeal SARS-CoV-2, Influenza & RSV (PCR) - Final Imaging and Cardiology Status: report viewed by me Results Comments: Results reviewed A&P - Infectious Disease (1) Intermittent fever: (2) History of lung cancer: (3) Metastatic disease: (4) Loose stools: Plan Given lack of pneumonia seen on the CT of the chest favor stopping antibiotics observing off. Diarrhea started yesterday which could be from the antibiotics themselves we could be from the fact she is now off the opiates. In the meantime though she does not have an elevated white count we will simply send a stool for C. difficile to be in the hospital and obviously has been ill for the last couple weeks. CT of the abdomen did not mention any bowel wall thickening which would be concerning for C. difficile. Therefore would favor stopping antibiotics and seeing what happens with her loose stools first. Will continue to trend her white count and temperature curve. Documented By: Elizabeth Elizabeth MD 09/09/24 1413 Signed By: <Electronically signed by MD Elizabeth Elizabeth> 09/09/24 1423 [facility] Work Phone: 1(965) 806-324002-21-2025 Progress note Author Agatha Martinez [facility] CenterNote Date/TimeFebruary 2024 2:06pm [place] [address] Hospitalist Progress Note Signed Patient: Ofe Saravia MR#: [id number] : 1955 Acct:[id number] Age/Sex: 68 / F Adm Date: 5 Loc: Room: [address] [place] [address] Type: ADM IN Attending Dr: Agatha Martinez MD Copies to: ~ Date of Service: 09/09/2024 Subjective Subjective Narrative: Pt observed ambulating with assistance and walker to use the restroom as well asin bed. Pt is complaining about her vision today, but states this is not new andhas been this way for the last month, pt describes everything as blurry. Pt as well says she feels worse today than yesterday. Pt complainsof dysuria and diarrhea. Pt is complaining of neck pain. Pt is still lightheaded when she stands up. Pt denies nausea or vomiting and did eat breakfast this morning. Exam Physical Exam Vital Signs: Temp Pulse Resp BP Pulse Ox O2 Del Method O2 Flow Rate 99.0 F 104 H 18 131/62 96 Room Air 2 09/09/24 09:30 09/09/24 08:00 09/09/24 08:00 09/09/24 08:00 09/09/24 08:00 09/09/24 08:00 09/08/24 08:00 Narrative: GENERAL: No apparent distress, alert, oriented, appears stated age, comfortable HEENT: NC/AT, PERRL, conjunctiva clear, right sided facial droop noted CARDIOVASCULAR: tachycardic and regular rhythm, no murmurs, symmetric palpable radial pulses RESPIRATORY: nonlabored work of breathing on room air, clear to auscultation bilaterally, symmetricchest rise, no wheezes/rales/rhonci ABDOMEN: Soft, non-tender, non-distended, normal bowel sounds BACK: cervical tenderness noted EXTREMITIES: moving all extremities well. Well-perfused. No edema SKIN: Intact, no rash, no trauma PSYCHIATRIC: appropriate mood and affect, cooperative Objective Lab Results 09/09/24 05:03 09/09/24 05:03 Microbiology Results Microbiology 09/06/24 23:23 Blood - Left Antecubital Blood Culture - Preliminary No Growth 2 Days 09/06/24 23:23 Blood - Right Hand Blood Culture - Preliminary No Growth 2 Days 09/08/24 12:10 Nasopharyngeal Respiratory Panel (PCR) - Final Meds Allergies and Active Meds Allergies No Known Allergies Allergy (Verified 09/06/24 18:15) Active Meds: Active Medications Generic Name Dose Route Start Last Admin Trade Name Freq PRN Reason Stop Dose Admin Acetaminophen 650 mg 09/07/24 14:48 09/08/24 23:31 Acetaminophen 325 Mg Tablet PO 09/07/25 14:47 650 mg Q6H PRN Administration pain or fever Azithromycin 500 mg 09/07/24 21:00 09/08/24 20:43 Azithromycin 250 Mg Tablet PO 500 mg Q24H [facility] Administration Ezetimibe 5 mg 09/10/24 09:00 Ezetimibe 10 Mg Tablet PO 09/10/25 08:59 QAM [facility] Enoxaparin Sodium 40 mg 09/07/24 10:00 09/07/24 11:30 Enoxaparin 40 Mg/0.4 Ml Syringe SUBCUT 09/07/25 09:59 Not Given DAILY@10 [facility] Fluoxetine HCl 20 mg 09/09/24 09:40 Fluoxetine 20 Mg Capsule PO 09/09/25 09:39 QAM [facility] Hydromorphone HCl 0.5 mg 09/07/24 04:07 09/09/24 09:36 Hydromorphone 0.5 Mg/0.5 Ml Syringe IV-PUSH 0.5 mg Q4H PRN Administration Pain Scale 8 - 10 Ceftriaxone Sodium 1 gm in 50 mls @ 100 mls/hr 09/07/24 23:00 09/09/24 00:13 Rocephin IV Infused Q24H [facility] Infusion Levothyroxine Sodium 25 mcg 09/09/24 22:00 Levothyroxine 25 Mcg Tablet PO 09/09/25 21:59 QHS [facility] Propranolol HCl 60 mg 09/09/24 09:16 09/09/24 09:30 Propranolol 20 Mg Tablet PO 60 mg QHS PRN Administration tremor(s), anxiety Sodium Chloride 0 ml 09/06/24 18:13 09/09/24 09:36 Sodium Chloride 0.9 % 10 Ml Syringe IV-PUSH 09/06/25 18:12 10 ml PRN PRN Administration Flush Tramadol HCl 50 mg 09/07/24 04:07 09/07/24 23:47 Tramadol 50 Mg Tablet PO 03/06/25 04:06 50 mg Q6H PRN Administration Pain Scale 4 - 7 A&P - Hospitalist Assessment/Plan (1) History of lung cancer: (2) Anemia: Plan 68F pmh stage IV lung cancaer, stroke, hypothyroidism, tremor, presenting with generalized fatigue and lightheadedness Assessment and Plan: 1. Acute anemia, symptomatic anemia Hgb intiially was 7.9, 1 unit of pRBCs was transfused and Hgb yesterday was 9.0,Hgb today is 8.0. Iron studies would indicate anemia of chronic disease. Last week patient finished radiation for bone mets, this could be contributing to anemia as well. wbc downtrending from 9.8 to 8.9 Pt continues to be tachycardic and febrile, her propranolol was restarted. This is a home medication that she takes for her tremor that she has not been taking since in-patient, will see if this addresses tachycardia. Blood cx still have no growth continue ceftriaxone and azithromycin. ID consulted for input Pt was today complaining of dysuria and polyuria, will culture urine. A urinalysis was initially done in the ED and no bacteria was seen. Oncology consult as requested per pt and family. DVT px: SCD Diet: regular Code: Full Home medications for chronic conditions unless stated otherwise: Hypothyroidism Tremor Attending Physician Attestation: I personally reviewed the history, performed the landry elements of the exam, formulated the plan of care and confirmed the written note. I agree with the findings and plan as documented in this note and have edited it if needed to reflect my findings and plan. Agatha Soto MD n Documented By: Agatha Martinez MD 09/09/24 10 58 Signed By: <Electronically signed by Agatha Martinez MD> 09/09/24 1406 [facility] Work Phone: 1(383) 741-419702-21-2025 [place] [address] Infect. Disease Consult Note Signed Patient: Ofe Saravia MR#: [id number] : 1955 Acct:[id number] Age/Sex: 68 / F Adm Date: 5 Loc: Room: [address] [place] [address] Type: ADM IN Attending Dr: Agatha Martinez MD Copies to: DO Elizabeth Schroeder Jr, MD Obaydah M Daromar, MD~ HPI Data of Consult Consult date: 09/09/24 Requesting Physician: Agatha Martinez MD Primary Care Provider: Asya Clements JR, DO Consult Narrative History of present illness: Ms. Saravia is a 68 year old female with known lung cancer with metastasis to herright shoulder and right hip who presented due to extreme weakness and anemia. She did not have a significant fever when she arrived here but had to elevated temperature spikes on the to 101.0 at 1555 and 101.2 at midnight on the . Prior to these fevers she had already been started on ceftriaxone and azithromycin and these fevers occurred while on this medication. She is being treated for pneumonia however CT of the chest does not actually have a pneumoniabased on read as well as me looking at the films themselves. She denies any respiratory symptoms. She developed diarrhea yesterday but prior to this had been on a lot of pain medications which was causing her some mental status issues. 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 I received a consult due to ongoing fever. Admission blood culturesremain negative at 2 days. Upper respiratory panel negative for targets. CT ofthe chest as above with the CT of the abdomen pelvis also not showing anything acute aside from the metastasis in the right iliac bone. CC: Agatha Martinez MD Review of Systems Review of Systems All other systems reviewed & are negative unless noted below or in HPI [facility] Medical History (Updated 09/09/24 @ 14:18 by Elizabeth Elizabeth MD) Chronic bronchitis Anxiety Seizures history of focal seizures, Last known seizure was 2006 Paralysis right side of face Tremor left hand Stroke Vertigo Kidney stones Hypothyroidism Hyperlipidemia Surgical History History of cosmetic surgery facial History of D&C History of neurologic surgery brain stem History of ankle surgery left H/O eye surgery x4 right, x1 left Family History Father Cancer of kidney Aneurysm Mother Alive and well Brother Heart disease Heart valve problem Brother Heart disease Pacemaker Stroke Social History Smoking Status: Former smoker Tobacco Type: cigarettes Substance Use Type: None Allergies and Medications Allergies and Active Meds Allergies No Known Allergies Allergy (Verified 09/06/24 18:15) Active Medications Acetaminophen (Acetaminophen 325 Mg Tablet) 650 mg PO Q6H PRN PRN Reason: pain or fever Stop: 09/07/25 14:47 Last Admin: 09/08/24 23:31 Dose: 650 mg Azithromycin (Azithromycin 250 Mg Tablet) 500 mg PO Q24H [facility] Last Admin: 09/08/24 20:43 Dose: 500 mg Ezetimibe (Ezetimibe 10 Mg Tablet) 5 mg PO QAM [facility] Stop: 09/10/25 08:59 Enoxaparin Sodium (Enoxaparin 40 Mg/0.4 Ml Syringe) 40 mg SUBCUT DAILY@10 [facility] Stop: 09/07/25 09:59 Last Admin: 09/09/24 11:28 Dose: Not Given Fluoxetine HCl (Fluoxetine 20 Mg Capsule) 20 mg PO QAM [facility] Stop: 09/09/25 09:39 Last Admin: 09/09/24 12:41 Dose: 20 mg Hydromorphone HCl (Hydromorphone 0.5 Mg/0.5 Ml Syringe) 0.5 mg IV-PUSH Q4H PRN PRN Reason: Pain Scale 8 - 10 Last Admin: 09/09/24 09:36 Dose: 0.5 mg Ceftriaxone Sodium (Rocephin) 1 gm in 50 mls @ 100 mls/hr IV Q24H [facility] Last Infusion: 09/09/24 00:13 Dose: Infused Levothyroxine Sodium (Levothyroxine 25 Mcg Tablet) 25 mcg PO QHS [facility] Stop: 09/09/25 21:59 Propranolol HCl (Propranolol 20 Mg Tablet) 60 mg PO QHS PRN PRN Reason: tremor(s), anxiety Last Admin: 09/09/24 09:30 Dose: 60 mg Sodium Chloride (Sodium Chloride 0.9 % 10 Ml Syringe) 0 ml IV-PUSH PRN PRN PRN Reason: Flush Stop: 09/06/25 18:12 Last Admin: 09/09/24 09:36 Dose: 10 ml Tramadol HCl (Tramadol 50 Mg Tablet) 50 mg PO Q6H PRN PRN Reason: Pain Scale 4 - 7 Stop: 03/06/25 04:06 Last Admin: 09/07/24 23:47 Dose: 50 mg Exam Physical Exam Vital Signs: Vital Signs Temp Pulse Resp BP Pulse Ox O2 Del Method 09/09/24 12:00 98.3 F 86 18 118/58 L 96 Room Air 09/09/24 09:30 99.0 F 09/09/24 08:00 Room Air 09/09/24 08:00 99.6 F H 104 H 18 131/62 96 Room Air 09/09/24 04:00 98.5 F 86 18 132/61 98 CPAP 09/09/24 01:06 99.2 F H 09/09/24 00:00 101.2 F H 100 18 123/57 L 93 L CPAP 09/08/24 20:00 Room Air 09/08/24 20:00 98.6 F 88 18 118/56 L 98 Room Air 09/08/24 17:00 99.7 F H 09/08/24 15:55 101.0 F H 107 H 16 121/56 L 95 CPAP Intake and Output 09/08/24 09/09/24 09/09/24 23:59 07:59 15:59 Intake Total 1360 / 1710 150 / 150 Balance 1360 / 1710 150 / 150 Intake: IV 50 / 50 cefTRIAXone 1GM-*NS* 1 gm In 50 50 / 50 ml @ 100 mls/hr IV Q24H [facility] Rx #:[id number] Oral 1360 / 1660 100 / 100 Other: # Unmeasured Voids 5 3 # Bowel Movements 1 0 Weight 94.1 kg Date of Last Bowel Movement 09/08/24 09/09/24 Patient Weight 09/09/24 23:59 Weight 94.1 kg Const General: cooperative, comfortable and no acute distress Other: R sided facial droop from prior CVA HEENT Head: normal to inspection Ears: hearing grossly normal bilaterally Nose: external nose normal Mouth: oral mucosae normal Eyes General: appearance normal, both eyes and all related structures Neck Neck: normal visual inspection Chest Chest palpation & inspection: normal inspection of the chest Resp Effort & Inspection: normal respiratory effort, able to speak in complete sentences, no cough and no respiratory distress Auscultation: clear to auscultation bilaterally, no crackles and no rhonchi Cardio Rate: regular rate Rhythm: regular rhythm GI Inspection: normal to inspection Palpation: soft and nontender Auscultation: normal bowel sounds Skin General: no rashes or lesions noted Neuro General: patient oriented x3 Extrem General: normal to inspection Results - Infectious Disease Labs 09/09/24 05:03 09/09/24 05:03 Labs: 09/09/24 05:03: Corrected WBC 8.9, BUN 5 L, Creatinine 0.44 L 09/07/24 02:50 Urine Color Yellow Urine Appearance Clear Urine pH 6.0 Ur Specific [place] >1.050 H Urine Protein 20 H Urine Glucose (UA) Normal Urine Ketones 1+ H Urine Occult Blood Trace H Urine Nitrite Negative Urine Bilirubin Negative Urine Urobilinogen Normal Ur Leukocyte Esterase Negative Urine RBC 1-2 Urine WBC 3-4 Ur Squamous Epith Cells 3-4 H Urine Bacteria None seen Hyaline Casts None Microbiology Results Microbiology Narrative: Microbiology - Results from entire visit 09/06/24 23:23 Blood - Left Antecubital Blood Culture - Preliminary No Growth 2 Days 09/06/24 23:23 Blood - Right Hand Blood Culture - Preliminary No Growth 2 Days 09/08/24 12:10 Nasopharyngeal Respiratory Panel (PCR) - Final 09/06/24 21:30 Nasopharyngeal SARS-CoV-2, Influenza & RSV (PCR) - Final Imaging and Cardiology Status: report viewed by me Results Comments: Results reviewed A&P - Infectious Disease (1) Intermittent fever: (2) History of lung cancer: (3) Metastatic disease: (4) Loose stools: Plan Given lack of pneumonia seen on the CT of the chest favor stopping antibiotics observing off. Diarrhea started yesterday which could be from the antibiotics themselves we could be from the fact she is now off the opiates. In the meantime though she does not have an elevated white count we will simply send a stool for C. difficile to be in the hospital and obviously has been ill for the last couple weeks. CT of the abdomen did not mention any bowel wall thickening which would be concerning for C. difficile. Therefore would favor stopping antibiotics and seeing what happens with her loose stools first. Will continue to trend her white count and temperature curve. Documented By: Elizabeth Elizabeth MD 09/09/24 1413 Signed By: 09/09/24 1423 [facility]02-21-20[place] [address] Hospitalist Progress Note Signed Patient: Ofe Saravia MR#: [id number] : 1955 Acct:[id number] Age/Sex: 68 / F Adm Date: 5 Loc: Room: [address] [place] [address] Type: ADM IN Attending Dr: Agatha Martinez MD Copies to: ~ Date of Service: 09/09/2024 Subjective Subjective Narrative: Pt observed ambulating with assistance and walker to use the restroom as well asin bed. Pt is complaining about her vision today, but states this is not new andhas been this way for the last month, pt describes everything as blurry. Pt as well says she feels worse today than yesterday. Pt complainsof dysuria and diarrhea. Pt is complaining of neck pain. Pt is still lightheaded when she stands up. Pt denies nausea or vomiting and did eat breakfast this morning. Exam Physical Exam Vital Signs: Temp Pulse Resp BP Pulse Ox O2 Del Method O2 Flow Rate 99.0 F 104 H 18 131/62 96 Room Air 2 09/09/24 09:30 09/09/24 08:00 09/09/24 08:00 09/09/24 08:00 09/09/24 08:00 09/09/24 08:00 09/08/24 08:00 Narrative: GENERAL: No apparent distress, alert, oriented, appears stated age, comfortable HEENT: NC/AT, PERRL, conjunctiva clear, right sided facial droop noted CARDIOVASCULAR: tachycardic and regular rhythm, no murmurs, symmetric palpable radial pulses RESPIRATORY: nonlabored work of breathing on room air, clear to auscultation bilaterally, symmetricchest rise, no wheezes/rales/rhonci ABDOMEN: Soft, non-tender, non-distended, normal bowel sounds BACK: cervical tenderness noted EXTREMITIES: moving all extremities well. Well-perfused. No edema SKIN: Intact, no rash, no trauma PSYCHIATRIC: appropriate mood and affect, cooperative Objective Lab Results 09/09/24 05:03 09/09/24 05:03 Microbiology Results Microbiology 09/06/24 23:23 Blood - Left Antecubital Blood Culture - Preliminary No Growth 2 Days 09/06/24 23:23 Blood - Right Hand Blood Culture - Preliminary No Growth 2 Days 09/08/24 12:10 Nasopharyngeal Respiratory Panel (PCR) - Final Meds Allergies and Active Meds Allergies No Known Allergies Allergy (Verified 09/06/24 18:15) Active Meds: Active Medications Generic Name Dose Route Start Last Admin Trade Name Freq PRN Reason Stop Dose Admin Acetaminophen 650 mg 09/07/24 14:48 09/08/24 23:31 Acetaminophen 325 Mg Tablet PO 09/07/25 14:47 650 mg Q6H PRN Administration pain or fever Azithromycin 500 mg 09/07/24 21:00 09/08/24 20:43 Azithromycin 250 Mg Tablet PO 500 mg Q24H [facility] Administration Ezetimibe 5 mg 09/10/24 09:00 Ezetimibe 10 Mg Tablet PO 09/10/25 08:59 QAM [facility] Enoxaparin Sodium 40 mg 09/07/24 10:00 09/07/24 11:30 Enoxaparin 40 Mg/0.4 Ml Syringe SUBCUT 09/07/25 09:59 Not Given DAILY@10 GERMAN Fluoxetine HCl 20 mg 09/09/24 09:40 Fluoxetine 20 Mg Capsule PO 09/09/25 09:39 QAM GERMAN Hydromorphone HCl 0.5 mg 09/07/24 04:07 09/09/24 09:36 Hydromorphone 0.5 Mg/0.5 Ml Syringe IV-PUSH 0.5 mg Q4H PRN Administration Pain Scale 8 - 10 Ceftriaxone Sodium 1 gm in 50 mls @ 100 mls/hr 09/07/24 23:00 09/09/24 00:13 Rocephin IV Infused Q24H GERMAN Infusion Levothyroxine Sodium 25 mcg 09/09/24 22:00 Levothyroxine 25 Mcg Tablet PO 09/09/25 21:59 QHS GERMAN Propranolol HCl 60 mg 09/09/24 09:16 09/09/24 09:30 Propranolol 20 Mg Tablet PO 60 mg QHS PRN Administration tremor(s), anxiety Sodium Chloride 0 ml 09/06/24 18:13 09/09/24 09:36 Sodium Chloride 0.9 % 10 Ml Syringe IV-PUSH 09/06/25 18:12 10 ml PRN PRN Administration Flush Tramadol HCl 50 mg 09/07/24 04:07 09/07/24 23:47 Tramadol 50 Mg Tablet PO 03/06/25 04:06 50 mg Q6H PRN Administration Pain Scale 4 - 7 A&P - Hospitalist Assessment/Plan (1) History of lung cancer: (2) Anemia: Plan 68F pmh stage IV lung cancaer, stroke, hypothyroidism, tremor, presenting with generalized fatigue and lightheadedness Assessment and Plan: 1. Acute anemia, symptomatic anemia Hgb intiially was 7.9, 1 unit of pRBCs was transfused and Hgb yesterday was 9.0,Hgb today is 8.0. Iron studies would indicate anemia of chronic disease. Last week patient finished radiation for bone mets, this could be contributing to anemia as well. wbc downtrending from 9.8 to 8.9 Pt continues to be tachycardic and febrile, her propranolol was restarted. This is a home medication that she takes for her tremor that she has not been taking since in-patient, will see if this addresses tachycardia. Blood cx still have no growth continue ceftriaxone and azithromycin. ID consulted for input Pt was today complaining of dysuria and polyuria, will culture urine. A urinalysis was initially done in the ED and no bacteria was seen. Oncology consult as requested per pt and family. DVT px: SCD Diet: regular Code: Full Home medications for chronic conditions unless stated otherwise: Hypothyroidism Tremor Attending Physician Attestation: I personally reviewed the history, performed the landry elements of the exam, formulated the plan of care and confirmed the written note. I agree with the findings and plan as documented in this note and have edited it if needed to reflect my findings and plan. Agatha Soto MD n Documented By: Agatha Martinez MD 09/09/24 10 58 Signed By: 09/09/24 1406 [facility]02-21-2025 Consult note Author Miguel Taveras [facility] CenterNote Date/TimeFebruary 2024 11:35am [place] [address] Physiatry (Rehab) Consult Note Signed Patient: Ofe Saravia MR#: [id number] : 1955 Acct:[id number] Age/Sex: 68 / F Adm Date: 5 Loc: Room: [address] [place] [address] Type: ADM IN Attending Dr: Agatha Martinez MD Copies to: DO Miguel Schroeder Jr, MD Obaydah M Daromar, MD~ Etiologic Dx/Impairment Group Narrative Narrative: Debility, pneumonia HPI Consult Date: 09/09/24 Requesting Physician: Agatha Martinez MD Primary Care Provider: Asya Clements JR, DO Consult Narrative Reason for consult: debility, weakness HPI: Ms. Saravia is a 68 year old female with history per chart, of stage IV lung cancer, prior stroke with residual left-sided defects, hypothyroidism presentingwith functional decline in the setting of community-acquired pneumonia. at bedside and provides some additional history. She was diagnosed withlung cancer over . She just completed palliative radiation to the right shoulder and right pelvis with improvedpain. She follows with [facility] and the plan was to start chemotherapy as early asthis upcoming week. His concern is that the cancer is progressing rapidly and if shedoes not start chemotherapy soon, she will continue to decline quickly. She presented with 5 days of malaise and weakness difficulty functioning at home. She also has someimpaired use of her right hand and right leg due to metastatic lesions. She lives home with her who can assist. She is being treated for community-acquired pneumonia with antibiotics, respiratory panel is pending. Review of Systems Review of Systems All other systems reviewed & are negative unless noted below or in HPI [facility] Medical History (Updated 09/09/24 @ 11:33 by Miguel Taveras MD) Chronic bronchitis Anxiety Seizures history of focal seizures, Last known seizure was 2006 Paralysis right side of face Tremor left hand Stroke Vertigo Kidney stones Hypothyroidism Hyperlipidemia Surgical History History of cosmetic surgery facial History of D&C History of neurologic surgery brain stem History of ankle surgery left H/O eye surgery x4 right, x1 left Family History Father Cancer of kidney Aneurysm Mother Alive and well Brother Heart disease Heart valve problem Brother Heart disease Pacemaker Stroke Social History Smoking Status: Former smoker Tobacco Type: cigarettes Substance Use Type: None Meds Medications and Allergies Allergies No Known Allergies Allergy (Verified 09/06/24 18:15) Home Medications ezetimibe 10 mg tablet (Zetia) 5 mg PO QAM 05/31/24 [History Confirmed 09/07/24] fluoxetine 20 mg capsule 20 mg PO QAM 05/31/24 [History Confirmed 09/07/24] levothyroxine 25 mcg tablet 25 mcg PO QHS 05/31/24 [History Confirmed 09/07/24] meloxicam 15 mg tablet 15 mg PO BID 05/31/24 [History Confirmed 09/07/24] propranolol 60 mg tablet 60 mg PO QHS PRN tremor(s), anxiety 05/31/24 [History Confirmed 09/07/24] acetaminophen 325 mg tablet (Tylenol) 325 mg PO Q6HR PRN pain 06/07/24 [History Confirmed 09/07/24] oxybutynin chloride 5 mg tablet 5 mg PO BID-TID PRN bladder spasms #30 tabs 06/07/24 [Rx Confirmed 09/07/24] hydrochlorothiazide 25 mg tablet 25 mg PO .PRN Kidney Stones 09/07/24 [History Confirmed 09/07/24] tramadol 50 mg tablet 50 mg PO .PRN PRN pain 09/07/24 [History Confirmed 09/07/24] Exam Physical Exam Vital Signs: Temp Pulse Resp BP Pulse Ox O2 Del Method O2 Flow Rate 99.6 F H 104 H 18 131/62 96 Room Air 2 09/09/24 08:00 09/09/24 08:00 09/09/24 08:00 09/09/24 08:00 09/09/24 08:00 09/09/24 08:00 09/08/24 08:00 Narrative: Oriented x 3. Left facial droop Subtle left hemiplegia Limited range of motion right shoulder and right hip Results - Phys. Rehab Labs Labs: Laboratory Results - last 24 hr 09/08/24 09/08/24 09/09/24 05:48 12:10 05:03 Corrected WBC 8.9 RBC 2.75 L Hgb 8.0 L Hct 24.0 L MCV 87.3 MCH 29.1 MCHC 33.4 RDW 14.8 Plt Count 424 MPV 7.4 Haptoglobin > 400 H PHA Creatinine Clear 83.34 Sodium 139 Potassium 4.1 Chloride 103 Carbon Dioxide 28.4 Anion Gap 11.7 BUN 5 L Creatinine 0.44 L Est GFR (CKD-EPI) > 60.0 Glucose 105 H Calcium 7.9 L ALT 26 COVID-19 Clin Com Not detected Additional Results Results Comment: I reviewed clinical lab tests, radiology reports and obtained and summated medical records and haveordered follow up lab tests and imaging studies as needed for rehabilitation care. Assessment/Plan (1) History of stroke with residual deficit: (2) History of lung cancer: (3) CAP (community acquired pneumonia): (4) Anemia: (5) Impaired mobility and activities of daily living: (6) Hypothyroidism: (7) Metastatic disease: Plan Ms. Saravia is a 68 year old female with history per chart, of stage IV lung cancer, prior stroke with residual left-sided defects, hypothyroidism presentingwith functional decline in the setting of community-acquired pneumonia. -Will follow progress through the weekend. We need the plan of care from her oncologist. If oncology would like to start chemotherapy next week, we would have to find a window for her to be admitted to rehabilitation unit, or she would have to go home with her to receive that treatment. If c hemotherapy is going to be delayed given her hospitalization, we could plan forbrief rehab admission as early as Thursday. -Discussed at length with patient and at the bedside. Agreeable to planof care Patient was personally seen by me, Dr. Taveras, on the day of encounter, reviewed the history and therelevant portions of the chart, including current orders, allied health and oracle database consultant notes, labs/imaging and performed landry elements of exam and I formulated the plan of care and facilitated the medical decision making. I completed a substantive portion of this encounter, the medical decision makingportion of this note in its entirety, including Allied health note review, nursing note review, oracle database consultant note review,discussion with nursing and case management, and more than 50% of my time was spent on counseling and coordination of care, time spent 50 minutes Documented By: Miguel Taveras MD 09/09/24 0934 Signed By: <Electronically signed by Miguel Taveras MD> 09/09/24 5787 [facility] Work Phone: 1(694) 205-649102-21-2025 [place] [address] Physiatry (Rehab) Consult Note Signed Patient: Ofe Saravia MR#: [id number] : 1955 Acct:[id number] Age/Sex: 68 / F Adm Date: 5 Loc: Room: [address] [place] [address] Type: ADM IN Attending Dr: Agatha Martinez MD Copies to: DO Miguel Schroeder Jr, MD Obaydah M Daromar, MD~ Etiologic Dx/Impairment Group Narrative Narrative: Debility, pneumonia HPI Consult Date: 09/09/24 Requesting Physician: Agatha Martinez MD Primary Care Provider: Asya Clements JR, DO Consult Narrative Reason for consult: debility, weakness HPI: Ms. Saravia is a 68 year old female with history per chart, of stage IV lung cancer, prior stroke with residual left-sided defects, hypothyroidism presentingwith functional decline in the setting of community-acquired pneumonia. at bedside and provides some additional history. She was diagnosed withlung cancer over . She just completed palliative radiation to the right shoulder and right pelvis with improvedpain. She follows with [facility] and the plan was to start chemotherapy as early asthis upcoming week. His concern is that the cancer is progressing rapidly and if shedoes not start chemotherapy soon, she will continue to decline quickly. She presented with 5 days of malaise and weakness difficulty functioning at home. She also has someimpaired use of her right hand and right leg due to metastatic lesions. She lives home with her who can assist. She is being treated for community-acquired pneumonia with antibiotics, respiratory panel is pending. Review of Systems Review of Systems All other systems reviewed & are negative unless noted below or in HPI [facility] Medical History (Updated 09/09/24 @ 11:33 by Miguel Taveras MD) Chronic bronchitis Anxiety Seizures history of focal seizures, Last known seizure was 2006 Paralysis right side of face Tremor left hand Stroke Vertigo Kidney stones Hypothyroidism Hyperlipidemia Surgical History History of cosmetic surgery facial History of D&C History of neurologic surgery brain stem History of ankle surgery left H/O eye surgery x4 right, x1 left Family History Father Cancer of kidney Aneurysm Mother Alive and well Brother Heart disease Heart valve problem Brother Heart disease Pacemaker Stroke Social History Smoking Status: Former smoker Tobacco Type: cigarettes Substance Use Type: None Meds Medications and Allergies Allergies No Known Allergies Allergy (Verified 09/06/24 18:15) Home Medications ezetimibe 10 mg tablet (Zetia) 5 mg PO QAM 05/31/24 [History Confirmed 09/07/24] fluoxetine 20 mg capsule 20 mg PO QAM 05/31/24 [History Confirmed 09/07/24] levothyroxine 25 mcg tablet 25 mcg PO QHS 05/31/24 [History Confirmed 09/07/24] meloxicam 15 mg tablet 15 mg PO BID 05/31/24 [History Confirmed 09/07/24] propranolol 60 mg tablet 60 mg PO QHS PRN tremor(s), anxiety 05/31/24 [History Confirmed 09/07/24] acetaminophen 325 mg tablet (Tylenol) 325 mg PO Q6HR PRN pain 06/07/24 [History Confirmed 09/07/24] oxybutynin chloride 5 mg tablet 5 mg PO BID-TID PRN bladder spasms #30 tabs 06/07/24 [Rx Confirmed 09/07/24] hydrochlorothiazide 25 mg tablet 25 mg PO .PRN Kidney Stones 09/07/24 [History Confirmed 09/07/24] tramadol 50 mg tablet 50 mg PO .PRN PRN pain 09/07/24 [History Confirmed 09/07/24] Exam Physical Exam Vital Signs: Temp Pulse Resp BP Pulse Ox O2 Del Method O2 Flow Rate 99.6 F H 104 H 18 131/62 96 Room Air 2 09/09/24 08:00 09/09/24 08:00 09/09/24 08:00 09/09/24 08:00 09/09/24 08:00 09/09/24 08:00 09/08/24 08:00 Narrative: Oriented x 3. Left facial droop Subtle left hemiplegia Limited range of motion right shoulder and right hip Results - Phys. Rehab Labs Labs: Laboratory Results - last 24 hr 09/08/24 09/08/24 09/09/24 05:48 12:10 05:03 Corrected WBC 8.9 RBC 2.75 L Hgb 8.0 L Hct 24.0 L MCV 87.3 MCH 29.1 MCHC 33.4 RDW 14.8 Plt Count 424 MPV 7.4 Haptoglobin > 400 H PHA Creatinine Clear 83.34 Sodium 139 Potassium 4.1 Chloride 103 Carbon Dioxide 28.4 Anion Gap 11.7 BUN 5 L Creatinine 0.44 L Est GFR (CKD-EPI) > 60.0 Glucose 105 H Calcium 7.9 L ALT 26 COVID-19 Clin Com Not detected Additional Results Results Comment: I reviewed clinical lab tests, radiology reports and obtained and summated medical records and haveordered follow up lab tests and imaging studies as needed for rehabilitation care. Assessment/Plan (1) History of stroke with residual deficit: (2) History of lung cancer: (3) CAP (community acquired pneumonia): (4) Anemia: (5) Impaired mobility and activities of daily living: (6) Hypothyroidism: (7) Metastatic disease: Plan Ms. Sraavia is a 68 year old female with history per chart, of stage IV lung cancer, prior stroke with residual left-sided defects, hypothyroidism presentingwith functional decline in the setting of community-acquired pneumonia. -Will follow progress through the weekend. We need the plan of care from her oncologist. If oncology would like to start chemotherapy next week, we would have to find a window for her to be admitted to rehabilitation unit, or she would have to go home with her to receive that treatment. If c hemotherapy is going to be delayed given her hospitalization, we could plan forbrief rehab admission as early as Thursday. -Discussed at length with patient and at the bedside. Agreeable to planof care Patient was personally seen by me, Dr. Taveras, on the day of encounter, reviewed the history and therelevant portions of the chart, including current orders, allied health and oracle database consultant notes, labs/imaging and performed landry elements of exam and I formulated the plan of care and facilitated the medical decision making. I completed a substantive portion of this encounter, the medical decision makingportion of this note in its entirety, including Allied health note review, nursing note review, oracle database consultant note review,discussion with nursing and case management, and more than 50% of my time was spent on counseling and coordination of care, time spent 50 minutes Documented By: Miguel Taveras MD 09/09/24 0934 Signed By: 09/09/24 1135 [facility]02-21-2025 Telephone encounter Note* Telephone Encounter - Ghislaine Thakur RN - 09/09/2024 11:06 AM EST Call placed to Kayla at [facility] who states pt has been spiking fevers over the last 24 hours and they're trying to figure out why. They re cindy blood cultures today as well as did another urine culture. Pt is on IV rocephin and oral zithromax. Dr Elizabeth has been consulted as well. Ghislaine Thakur RN [facility]02-20-2025 Progress note Author Agatha Martinez [facility] CenterNote Date/TimeFebruary 2024 3:31pm [place] [address] Hospitalist Progress Note Signed Patient: Ofe Saravia MR#: [id number] : 1955 Acct:[id number] Age/Sex: 68 / F Adm Date: 5 Loc: 4P Room: [address] [place] [address] Type: ADM IN Attending Dr: Agatha Martinez MD Copies to: ~ Date of Service: 09/08/2024 Subjective Subjective Narrative: Pt observed laying in bed. She has better color today but says she still feels tired and lightheaded when she stands up. Pt did not have breakfast as she did not have much of an appetite, she did have dinner though. Pt denies any nausea or vomiting, but did have an episode of loose stool last night. Pt has a cough but says she does not produce anything. Pt has been having fever and chills during the night the last few days. Exam Physical Exam Vital Signs: Temp Pulse Resp BP Pulse Ox O2 Del Method O2 Flow Rate 98.3 F 103 H 18 124/58 L 98 Room Air 2 09/08/24 08:00 09/08/24 08:00 09/08/24 08:00 09/08/24 08:00 09/08/24 08:00 09/08/24 08:00 09/08/24 04:00 Narrative: GENERAL: No apparent distress, alert, oriented, comfortable HEENT: NC/AT CARDIOVASCULAR: Regular rate and regular rhythm RESPIRATORY: nonlabored work of breathing, clear to auscultation bilaterally, nowheezes/rales/rhonci ABDOMEN: Soft, non-tender, non-distended, EXTREMITIES: Weakness and paresthesias noted in right hand. Well-perfused. SKIN: Intact, no rash, no trauma PSYCHIATRIC: appropriate mood and affect, cooperative Objective Lab Results 09/08/24 05:48 09/08/24 05:48 Microbiology Results Microbiology 09/06/24 23:23 Blood - Left Antecubital Blood Culture - Preliminary No Growth 1 Day 09/06/24 23:23 Blood - Right Hand Blood Culture - Preliminary No Growth 1 Day Meds Allergies and Active Meds Allergies No Known Allergies Allergy (Verified 09/06/24 18:15) Active Meds: Active Medications Generic Name Dose Route Start Last Admin Trade Name Freq PRN Reason Stop Dose Admin Acetaminophen 650 mg 09/07/24 14:48 09/07/24 23:47 Acetaminophen 325 Mg Tablet PO 09/07/25 14:47 650 mg Q6H PRN Administration pain or fever Azithromycin 500 mg 09/07/24 21:00 09/07/24 21:07 Azithromycin 250 Mg Tablet PO 500 mg Q24H GERMAN Administration Enoxaparin Sodium 40 mg 09/07/24 10:00 09/07/24 11:30 Enoxaparin 40 Mg/0.4 Ml Syringe SUBCUT 09/07/25 09:59 Not Given DAILY@10 GERMAN Hydromorphone HCl 0.5 mg 09/07/24 04:07 09/08/24 09:42 Hydromorphone 0.5 Mg/0.5 Ml Syringe IV-PUSH 0.5 mg Q4H PRN Administration Pain Scale 8 - 10 Ceftriaxone Sodium 1 gm in 50 mls @ 100 mls/hr 09/07/24 23:00 09/08/24 00:17 Rocephin IV Infused Q24H GERMAN Infusion Sodium Chloride 0 ml 09/06/24 18:13 09/07/24 23:42 Sodium Chloride 0.9 % 10 Ml Syringe IV-PUSH 09/06/25 18:12 10 ml PRN PRN Administration Flush Tramadol HCl 50 mg 09/07/24 04:07 09/07/24 23:47 Tramadol 50 Mg Tablet PO 03/06/25 04:06 50 mg Q6H PRN Administration Pain Scale 4 - 7 A&P - Hospitalist Assessment/Plan (1) Anemia: (2) History of lung cancer: (3) CAP (community acquired pneumonia): Plan 68F pmh stave IV lung cancer, stroke, hypothyroidism, presenting with generalized fatigue and lightheadedness. Assessment and Plan: 1. Acute anemia, symptomatic anemia suspected community acquired pneumonia Hgb was 7.9 yesterday and is today 9.0. wbc count downtrending 11.0 to 9.8 continue ceftriaxone and azithromycin continue pain medication as need respiratory panel ordered, pt has been febrile despite antibiotic use, along with chills and loose stool, concern for a viral etiology. DVT px: SCD Diet: regular COde: Full Home medications for chronic conditions unless stated otherwise: Hypothyroidism Attending Physician Attestation: I personally reviewed the history, performed the landry elements of the exam, formulated the plan of care and confirmed the written note. I agree with the findings and plan as documented in this note and have edited it if needed to reflect my findings and plan. Repeat full respiratory panel unremarkable. Monitor for fever, continue to makeantibiotics for now,pending final cultures. PT/OT. Agatha Soto MD Documented By: Agatha Martinez MD 09/08/24 11 54 Signed By: <Electronically signed by Agatha Martinez MD> 09/08/24 1530 [facility] Work Phone: 1(436) 149-993802-20-2025 [facility] [address] [place] [address] Hospitalist Progress Note Signed Patient: Ofe Saravia MR#: [id number] : 1955 Acct:[id number] Age/Sex: 68 / F Adm Date: 5 Loc: 4 Room: [address] [place] [address] Type: ADM IN Attending Dr: Agatha Martinez MD Copies to: ~ Date of Service: 09/08/2024 Subjective Subjective Narrative: Pt observed laying in bed. She has better color today but says she still feels tired and lightheaded when she stands up. Pt did not have breakfast as she did not have much of an appetite, she did have dinner though. Pt denies any nausea or vomiting, but did have an episode of loose stool last night. Pt has a cough but says she does not produce anything. Pt has been having fever and chills during the night the last few days. Exam Physical Exam Vital Signs: Temp Pulse Resp BP Pulse Ox O2 Del Method O2 Flow Rate 98.3 F 103 H 18 124/58 L 98 Room Air 2 09/08/24 08:00 09/08/24 08:00 09/08/24 08:00 09/08/24 08:00 09/08/24 08:00 09/08/24 08:00 09/08/24 04:00 Narrative: GENERAL: No apparent distress, alert, oriented, comfortable HEENT: NC/AT CARDIOVASCULAR: Regular rate and regular rhythm RESPIRATORY: nonlabored work of breathing, clear to auscultation bilaterally, nowheezes/rales/rhonci ABDOMEN: Soft, non-tender, non-distended, EXTREMITIES: Weakness and paresthesias noted in right hand. Well-perfused. SKIN: Intact, no rash, no trauma PSYCHIATRIC: appropriate mood and affect, cooperative Objective Lab Results 09/08/24 05:48 09/08/24 05:48 Microbiology Results Microbiology 09/06/24 23:23 Blood - Left Antecubital Blood Culture - Preliminary No Growth 1 Day 09/06/24 23:23 Blood - Right Hand Blood Culture - Preliminary No Growth 1 Day Meds Allergies and Active Meds Allergies No Known Allergies Allergy (Verified 09/06/24 18:15) Active Meds: Active Medications Generic Name Dose Route Start Last Admin Trade Name Freq PRN Reason Stop Dose Admin Acetaminophen 650 mg 09/07/24 14:48 09/07/24 23:47 Acetaminophen 325 Mg Tablet PO 09/07/25 14:47 650 mg Q6H PRN Administration pain or fever Azithromycin 500 mg 09/07/24 21:00 09/07/24 21:07 Azithromycin 250 Mg Tablet PO 500 mg Q24H GERMAN Administration Enoxaparin Sodium 40 mg 09/07/24 10:00 09/07/24 11:30 Enoxaparin 40 Mg/0.4 Ml Syringe SUBCUT 09/07/25 09:59 Not Given DAILY@10 GERMAN Hydromorphone HCl 0.5 mg 09/07/24 04:07 09/08/24 09:42 Hydromorphone 0.5 Mg/0.5 Ml Syringe IV-PUSH 0.5 mg Q4H PRN Administration Pain Scale 8 - 10 Ceftriaxone Sodium 1 gm in 50 mls @ 100 mls/hr 09/07/24 23:00 09/08/24 00:17 Rocephin IV Infused Q24H GERMAN Infusion Sodium Chloride 0 ml 09/06/24 18:13 09/07/24 23:42 Sodium Chloride 0.9 % 10 Ml Syringe IV-PUSH 09/06/25 18:12 10 ml PRN PRN Administration Flush Tramadol HCl 50 mg 09/07/24 04:07 09/07/24 23:47 Tramadol 50 Mg Tablet PO 03/06/25 04:06 50 mg Q6H PRN Administration Pain Scale 4 - 7 A&P - Hospitalist Assessment/Plan (1) Anemia: (2) History of lung cancer: (3) CAP (community acquired pneumonia): Plan 68F pmh stave IV lung cancer, stroke, hypothyroidism, presenting with generalized fatigue and lightheadedness. Assessment and Plan: 1. Acute anemia, symptomatic anemia suspected community acquired pneumonia Hgb was 7.9 yesterday and is today 9.0. wbc count downtrending 11.0 to 9.8 continue ceftriaxone and azithromycin continue pain medication as need respiratory panel ordered, pt has been febrile despite antibiotic use, along with chills and loose stool, concern for a viral etiology. DVT px: SCD Diet: regular COde: Full Home medications for chronic conditions unless stated otherwise: Hypothyroidism Attending Physician Attestation: I personally reviewed the history, performed the landry elements of the exam, formulated the plan of care and confirmed the written note. I agree with the findings and plan as documented in this note and have edited it if needed to reflect my findings and plan. Repeat full respiratory panel unremarkable. Monitor for fever, continue to makeantibiotics for now,pending final cultures. PT/OT. Agatha Soto MD Documented By: Agatha Martinez MD 09/08/24 11 54 Signed By: 09/08/[address] [place], [place] [address]2-20-2025 History and physical note Author Horace Fairbanks [facility] CenterNote Date/TimeFebruary 2024 6:49am [place] [address] Hospitalist H&P Signed Patient: Ofe Saravia MR#: [id number] : 1955 Acct:[id number] Age/Sex: 68 / F Adm Date: 5 Loc: Room: [address] [place] [address] Type: ADM IN Attending Dr: Agatha Martinez MD Copies to: MD Asya Khanna Jr, DO Nicholas E Trivelas, DO, RES Agatha Martinez MD~ HPI DATE OF EXAMINATION: 09/07/24 CHIEF COMPLAINT: Fatigue HISTORY OF PRESENT ILLNESS: Attending note: I saw the patient personally on the day of encounter. I reviewed the relevant history, and performed the landyr elements of the physical examination. I reviewedthe relevant laboratory workup, radiological studies and the current treatment plan. I formulated the plan of care and confirmed it with the re sident/student/[employer]. Ofe Saravia is a 68-year-old female with past medical history significant for stroke with left-sided facial droop send deficits and lung cancer being treated by [facility] who presented to the ER this evening for evaluationof fevers, chills and fatigue. Patient states that roughly 4days ago she developed lightheadedness and fatigue that gradually worsened. She states that yesterday, she had difficulty walking up steps and her home. She states that she and her initially assumed she might be feeling woozy from her pain medication. She states they contacted her oncology office who who suggested discontinuing the oxycodone and maintaining tramadol and Tylenol, but this did not relieve the patient's symptoms. Additionally, patient notes having a cough. She denies hemoptysis, hematemesis, hematochezia, melena, diarrhea, abdominal pain, trauma, changes in her vision, slurred speech, difficulty swallowing or anyother acute symptoms at this time. [facility] Medical History Chronic bronchitis Anxiety Seizures history of focal seizures, Last known seizure was 2006 Paralysis right side of face Tremor left hand Stroke Vertigo Kidney stones Hypothyroidism Hyperlipidemia Surgical History History of cosmetic surgery facial History of D&C History of neurologic surgery brain stem History of ankle surgery left H/O eye surgery x4 right, x1 left Family History Father Cancer of kidney Aneurysm Mother Alive and well Brother Heart disease Heart valve problem Brother Heart disease Pacemaker Stroke Social History Smoking Status: Former smoker Tobacco Type: cigarettes Substance Use Type: None Meds Medications and Allergies Allergies No Known Allergies Allergy (Verified 09/06/24 18:15) Home Medications ezetimibe 10 mg tablet (Zetia) 5 mg PO QAM 05/31/24 [History Confirmed 09/07/24] fluoxetine 20 mg capsule 20 mg PO QAM 05/31/24 [History Confirmed 09/07/24] levothyroxine 25 mcg tablet 25 mcg PO QHS 05/31/24 [History Confirmed 09/07/24] meloxicam 15 mg tablet 15 mg PO BID 05/31/24 [History Confirmed 09/07/24] propranolol 60 mg tablet 60 mg PO QHS PRN tremor(s), anxiety 05/31/24 [History Confirmed 09/07/24] acetaminophen 325 mg tablet (Tylenol) 325 mg PO Q6HR PRN pain 06/07/24 [History Confirmed 09/07/24] oxybutynin chloride 5 mg tablet 5 mg PO BID-TID PRN bladder spasms #30 tabs 06/07/24 [Rx Confirmed 09/07/24] hydrochlorothiazide 25 mg tablet 25 mg PO .PRN Kidney Stones 09/07/24 [History Confirmed 09/07/24] tramadol 50 mg tablet 50 mg PO .PRN PRN pain 09/07/24 [History Confirmed 09/07/24] Exam Physical Exam Vital Signs: Temp Pulse Resp BP Pulse Ox O2 Del Method 99.3 F H 87 16 89/52 L 94 L Room Air 09/06/24 18:42 09/07/24 01:34 09/07/24 01:34 09/07/24 01:34 09/07/24 01:34 09/07/24 01:34 Narrative: CONSTITUTIONAL: No apparent distress. Alert, oriented. HEAD: Normocephalic, atraumatic. EYES: Pupils equal and reactive. Conjunctiva normal. ENT: External auditory canals wnl. No rhinorrhea. No pharyngeal exudates or erythema. NECK: No adenopathy. LUNGS: No distress. Lungs clear bilaterally. Symmetric chest rise. No wheezes, rales or rhonchi. CARDIOVASCULAR: Regular rate and rhythm. No murmurs. Symmetric palpable radial and dorsalis pedis pulses. ABDOMEN: Soft, non-tender, non-distended. Normal bowel sounds. Extremities: Pain to palpation of the right shoulder status post radiation performed a couple weeksago for metastatic cancer. Paresthesias noted on the right hand. SKIN: Intact. No rash. No trauma. NEUROLOGIC: Nystagmus noted to the left with bilateral gaze palsy status post intervention for bleeding pontine cavernoma. 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 PSYCHIATRIC: Normal affect. Results - Hospitalist H&P Lab Results Labs: Laboratory Last Values Corrected WBC 14.2 X10E3/uL (3.8-11.6) H 09/06/24 21: Uncorrected WBC Count 14.2 x10E3/uL (3.8-11.6) H 09/06/24: RBC 3.30 x10E6/uL (3.60-5.00) L 09/06/24 21: Hgb 9.6 g/dL (11.8-15.4) L 09/06/24: Hct 28.8 % (34.0-46.4) L 09/06/24: MCV 87.2 fl (80-100) 09/06/24: MCH 29.1 pg (24.7-34.3) 09/06/24: MCHC 33.3 g/dL (32.0-35.0) 09/06/24: RDW 14.1 % (11.9-15.3) 09/06/24: Plt Count 521 x10E3/uL (150-450) H 09/06/24: MPV 7.9 fl (6.3-10.7) 09/06/24: Neut % (Auto) 88.6 % (.) 09/06/24: Lymph % (Auto) 3.2 % (.) 09/06/24: [place] % (Auto) 7.2 % (.) 09/06/24: Eos % (Auto) 0.5 % (.) 09/06/24: Baso % (Auto) 0.5 % (.) 09/06/24: Nucleat RBC Rel Count 0.0 /100 WBC (0-0.5) 09/06/24: Neut # (Auto) 12.6 x10E3/uL (1.8-7.7) H 09/06/24: Lymph # (Auto) 0.5 x10E3/uL (1.00-4.8) L 09/06/24: [place] # (Auto) 1.0 x10E3/uL (0.0-0.8) H 09/06/24 21: Eos # (Auto) 0.1 x10E3/uL (0.0-0.45) 09/06/24 21: Baso # (Auto) 0.1 x10E3/uL (0.0-0.2) 09/06/24: Monocyte Dist Width 21.35 % (0.00-20.00) H 09/06/24 21: PHA Creatinine Clear 81.88 09/06/24 21: Sodium 134 mmol/L (136-145) L 09/06/24: Potassium 4.1 mmol/L (3.5-5.1) 09/06/24: Chloride 99 mmol/L (98-107) 09/06/24: Carbon Dioxide 24.8 mmol/L (21.0-31.0) 09/06/24: Anion Gap 14.3 mEq/L (6.0-15.0) 09/06/24: BUN 13 mg/dL (7-25) 09/06/24: Creatinine 0.58 mg/dL (0.60-1.20) L 09/06/24: Est GFR (CKD-EPI) > 60.0 mL/Min 09/06/24: Glucose 99 mg/dL (70-100) 09/06/24: Lactic Acid 1.3 mmol/L (0.5-1.9) 09/06/24 23:23 Calcium 9.1 mg/dL (8.6-10.3) 09/06/24: Total Bilirubin 0.6 mg/dl (0.3-1.0) 09/06/24: AST 20 U/L (13-39) 09/06/24 21: ALT 28 U/L (7-52) 09/06/24: Alkaline Phosphatase 96 U/L (34-104) 09/06/24: Total Protein 7.0 gm/dL (6.4-8.9) 09/06/24: Albumin 3.1 gm/dL (3.5-5.7) L 02/18/25 21:27 Globulin 3.9 gm/dL 09/06/24 21:27 Albumin/Globulin Ratio 0.8 09/06/24 21:27 SARS-CoV-2 Rap RNA(RT-PCR) Negative (Negative) 09/06/24 21:30 Microbiology Results Micro: Microbiology - Results from entire visit 09/06/24 21:30 Nasopharyngeal SARS-CoV-2, Influenza & RSV (PCR) - Final Assessment & Plan Assessment/Plan (1) CAP (community acquired pneumonia): (2) History of lung cancer: (3) Anemia: Plan Community-acquired pneumonia History of lung cancer Anemia ?Patient noted to be immunocompromised with temperature of 99.3 ?F and leukocytosis, white blood cell count 14 ?Blood cultures pending ?Plasma-Lyte IV fluid resuscitation ?Empiric antibiotics Rocephin and azithromycin initiated in the ER ? As needed analgesics for cancer pain ? CBC in a.m. Chronic conditions: Hypothyroidism Full code DVT prophylaxis: Lovenox 40 mg subcu Regular diet IP vs OBS Justification Based on differential dx, clinical care plan, and risk of adverse events, if untreated, in my clinical judgement this patient requires an acute care setting as: INPATIENT because of an expectation ofan over 2 midnight stay. Estimated length of stay (# of days): 3 Documented By: Horace Fairbanks MD 09/07/24 0348 Signed By: <Electronically signed by Horace Fairbanks MD> 09/08/24 0649 <Electronically signed by DO SUNDEEP Aguilar> 09/07/24 0606 [facility] Work Phone: 1(542) 705-912002-20-2025 [place] [address] Hospitalist H&P Signed Patient: Ofe Saravia MR#: [id number] : 1955 Acct:[id number] Age/Sex: 68 / F Adm Date: 5 Loc: 4 Room: [address] [place] [address] Type: ADM IN Attending Dr: Agatha Martinez MD Copies to: MD Asya Khanna Jr, DO Doug Aguilar DO, SUNDEEP Martinez MD~ HPI DATE OF EXAMINATION: 09/07/24 CHIEF COMPLAINT: Fatigue HISTORY OF PRESENT ILLNESS: Attending note: I saw the patient personally on the day of encounter. I reviewed the relevant history, and performed the landry elements of the physical examination. I reviewedthe relevant laboratory workup, radiological studies and the current treatment plan. I formulated the plan of care and confirmed it with the re sident/student/[employer]. Ofe Saravia is a 68-year-old female with past medical history significant for stroke with left-sided facial droop send deficits and lung cancer being treated by [facility] who presented to the ER this evening for evaluationof fevers, chills and fatigue. Patient states that roughly 4days ago she developed lightheadedness and fatigue that gradually worsened. She states that yesterday, she had difficulty walking up steps and her home. She states that she and her initially assumed she might be feeling woozy from her pain medication. She states they contacted her oncology office who who suggested discontinuing the oxycodone and maintaining tramadol and Tylenol, but this did not relieve the patient's symptoms. Additionally, patient notes having a cough. She denies hemoptysis, hematemesis, hematochezia, melena, diarrhea, abdominal pain, trauma, changes in her vision, slurred speech, difficulty swallowing or anyother acute symptoms at this time. [facility] Medical History Chronic bronchitis Anxiety Seizures history of focal seizures, Last known seizure was 2006 Paralysis right side of face Tremor left hand Stroke Vertigo Kidney stones Hypothyroidism Hyperlipidemia Surgical History History of cosmetic surgery facial History of D&C History of neurologic surgery brain stem History of ankle surgery left H/O eye surgery x4 right, x1 left Family History Father Cancer of kidney Aneurysm Mother Alive and well Brother Heart disease Heart valve problem Brother Heart disease Pacemaker Stroke Social History Smoking Status: Former smoker Tobacco Type: cigarettes Substance Use Type: None Meds Medications and Allergies Allergies No Known Allergies Allergy (Verified 09/06/24 18:15) Home Medications ezetimibe 10 mg tablet (Zetia) 5 mg PO QAM 05/31/24 [History Confirmed 09/07/24] fluoxetine 20 mg capsule 20 mg PO QAM 05/31/24 [History Confirmed 09/07/24] levothyroxine 25 mcg tablet 25 mcg PO QHS 05/31/24 [History Confirmed 09/07/24] meloxicam 15 mg tablet 15 mg PO BID 05/31/24 [History Confirmed 09/07/24] propranolol 60 mg tablet 60 mg PO QHS PRN tremor(s), anxiety 05/31/24 [History Confirmed 09/07/24] acetaminophen 325 mg tablet (Tylenol) 325 mg PO Q6HR PRN pain 06/07/24 [History Confirmed 09/07/24] oxybutynin chloride 5 mg tablet 5 mg PO BID-TID PRN bladder spasms #30 tabs 06/07/24 [Rx Confirmed 09/07/24] hydrochlorothiazide 25 mg tablet 25 mg PO .PRN Kidney Stones 09/07/24 [History Confirmed 09/07/24] tramadol 50 mg tablet 50 mg PO .PRN PRN pain 09/07/24 [History Confirmed 09/07/24] Exam Physical Exam Vital Signs: Temp Pulse Resp BP Pulse Ox O2 Del Method 99.3 F H 87 16 89/52 L 94 L Room Air 09/06/24 18:42 09/07/24 01:34 09/07/24 01:34 09/07/24 01:34 09/07/24 01:34 09/07/24 01:34 Narrative: CONSTITUTIONAL: No apparent distress. Alert, oriented. HEAD: Normocephalic, atraumatic. EYES: Pupils equal and reactive. Conjunctiva normal. ENT: External auditory canals wnl. No rhinorrhea. No pharyngeal exudates or erythema. NECK: No adenopathy. LUNGS: No distress. Lungs clear bilaterally. Symmetric chest rise. No wheezes, rales or rhonchi. CARDIOVASCULAR: Regular rate and rhythm. No murmurs. Symmetric palpable radial and dorsalis pedis pulses. ABDOMEN: Soft, non-tender, non-distended. Normal bowel sounds. Extremities: Pain to palpation of the right shoulder status post radiation performed a couple weeksago for metastatic cancer. Paresthesias noted on the right hand. SKIN: Intact. No rash. No trauma. NEUROLOGIC: Nystagmus noted to the left with bilateral gaze palsy status post intervention for bleeding pontine cavernoma. 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 PSYCHIATRIC: Normal affect. Results - Hospitalist H&P Lab Results Labs: Laboratory Last Values Corrected WBC 14.2 X10E3/uL (3.8-11.6) H 09/06/24 21: Uncorrected WBC Count 14.2 x10E3/uL (3.8-11.6) H 09/06/24 21: RBC 3.30 x10E6/uL (3.60-5.00) L 09/06/24 21: Hgb 9.6 g/dL (11.8-15.4) L 09/06/24 21: Hct 28.8 % (34.0-46.4) L 09/06/24 21: MCV 87.2 fl (80-100) 09/06/24 21: MCH 29.1 pg (24.7-34.3) 09/06/24 21: MCHC 33.3 g/dL (32.0-35.0) 09/06/24 21: RDW 14.1 % (11.9-15.3) 09/06/24 21: Plt Count 521 x10E3/uL (150-450) H 09/06/24: MPV 7.9 fl (6.3-10.7) 09/06/24: Neut % (Auto) 88.6 % (.) 09/06/24: Lymph % (Auto) 3.2 % (.) 09/06/24: [place] % (Auto) 7.2 % (.) 09/06/24: Eos % (Auto) 0.5 % (.) 09/06/24 21: Baso % (Auto) 0.5 % (.) 09/06/24 21: Nucleat RBC Rel Count 0.0 /100 WBC (0-0.5) 09/06/24 21: Neut # (Auto) 12.6 x10E3/uL (1.8-7.7) H 09/06/24 21: Lymph # (Auto) 0.5 x10E3/uL (1.00-4.8) L 09/06/24 21: [place] # (Auto) 1.0 x10E3/uL (0.0-0.8) H 09/06/24 21: Eos # (Auto) 0.1 x10E3/uL (0.0-0.45) 09/06/24 21: Baso # (Auto) 0.1 x10E3/uL (0.0-0.2) 09/06/24: Monocyte Dist Width 21.35 % (0.00-20.00) H 09/06/24 21: PHA Creatinine Clear 81.88 09/06/24 21: Sodium 134 mmol/L (136-145) L 09/06/24 21: Potassium 4.1 mmol/L (3.5-5.1) 09/06/24: Chloride 99 mmol/L (98-107) 09/06/24: Carbon Dioxide 24.8 mmol/L (21.0-31.0) 09/06/24: Anion Gap 14.3 mEq/L (6.0-15.0) 09/06/24 21: BUN 13 mg/dL (7-25) 09/06/24 21: Creatinine 0.58 mg/dL (0.60-1.20) L 09/06/24 21: Est GFR (CKD-EPI) > 60.0 mL/Min 09/06/24: Glucose 99 mg/dL (70-100) 09/06/24 21: Lactic Acid 1.3 mmol/L (0.5-1.9) 09/06/24 23:23 Calcium 9.1 mg/dL (8.6-10.3) 09/06/24:27 Total Bilirubin 0.6 mg/dl (0.3-1.0) 09/06/24 21:27 AST 20 U/L (13-39) 09/06/24 21:27 ALT 28 U/L (7-52) 09/06/24 21:27 Alkaline Phosphatase 96 U/L (34-104) 09/06/24 21:27 Total Protein 7.0 gm/dL (6.4-8.9) 09/06/24 21: Albumin 3.1 gm/dL (3.5-5.7) L 09/06/24 21:27 Globulin 3.9 gm/dL 09/06/24 21: Albumin/Globulin Ratio 0.8 09/06/24 21:27 SARS-CoV-2 Rap RNA(RT-PCR) Negative (Negative) 09/06/24 21:30 Microbiology Results Micro: Microbiology - Results from entire visit 09/06/24 21:30 Nasopharyngeal SARS-CoV-2, Influenza & RSV (PCR) - Final Assessment & Plan Assessment/Plan (1) CAP (community acquired pneumonia): (2) History of lung cancer: (3) Anemia: Plan Community-acquired pneumonia History of lung cancer Anemia ?Patient noted to be immunocompromised with temperature of 99.3 ?F and leukocytosis, white blood cell count 14 ?Blood cultures pending ?Plasma-Lyte IV fluid resuscitation ?Empiric antibiotics Rocephin and azithromycin initiated in the ER ? As needed analgesics for cancer pain ? CBC in a.m. Chronic conditions: Hypothyroidism Full code DVT prophylaxis: Lovenox 40 mg subcu Regular diet IP vs OBS Justification Based on differential dx, clinical care plan, and risk of adverse events, if untreated, in my clinical judgement this patient requires an acute care setting as: INPATIENT because of an expectation ofan over 2 midnight stay. Estimated length of stay (# of days): 3 Documented By: Horace Fairbanks MD 09/07/24 0348 Signed By: 09/08/24 0649 09/07/24 0606 [facility]02-20-2025 Radiology Diagnostic study note [facility] [place] [address] CT Scan Report Signed Patient: Ofe Saravia MR#: [id number] : 1955 Acct:[id number] Age/Sex: 68 / F ADM Date: 5 Loc: 4 Room: [address] [place] [address] Type: ADM IN Attending Dr: Agatha Martinez MD Copies to: Agatha Martinez MD~ Ordering Provider: Agatha Martinez MD Date of Service: 09/07/24 CT/CT angio abdomen pelvis: acute anemia, symptomaticanemia, recent dx cancer CT angio abdomen pelvis 09/07/2024 10:06 AM SIGNS AND SYMPTOMS: acute anemia, symptomatic anemia, recent dx lung cancer TECHNIQUE: Multidetector ct axial images of the abdomen and pelvis were obtainedwith IV contrast. Multiplanar and 3-D reformats were performed and reviewed to further define anatomy and possible pathology. CT was performed with one or more of the following dose reduction techniques: Automated exposure control, adjustment of the mA and/or kV according to patient size, or use of iterative reconstruction technique. COMPARISON: 08/08/2004 FINDINGS: Lower Chest: There is dependent airspace opacity consistent with atelectasis at the left lung base.Small bilateral pleural effusions are present. ABDOMEN: Liver: Within normal limits. Bile Ducts: Normal caliber. Gallbladder: No calcified gallstones. Normal caliber wall. Pancreas: There is a 12 mm cyst in the junction of the head and body of the pancreas similar to theprior exam. Spleen: Within normal limits. Adrenals: Within normal limits. Kidneys: There is a simple cyst in the left renal cortex requiring no further follow-up. Pelvis: Reproductive Organs: No pelvic masses. Ureters: Within normal limits. Bladder: A small amount of residual contrast is noted in the bladder. Bowel: Normal caliber. Mesenteric Lymph Nodes: No enlarged mesenteric lymph nodes. Peritoneum: There is a small amount of free fluid in the pelvis which may be physiologic. Vessels: Atherosclerotic changes are noted in the abdominal aorta and its branches. Retroperitoneum: Within normal limits. Abdominal Wall: Mild anasarca is noted in the abdominal wall. Bones: There is an expansile soft tissue mass in the right iliac bone measuring at least 7.3 cm in greatest axial dimension. This was present on the prior exam. Degenerative changes are noted in the visualized thoracolumbar spine. CT/CT angio abdomen pelvis IMPRESSION: No bowel obstruction or obstructive uropathy. No free fluid or free air. There is an expansile soft tissue mass in the right iliac bone measuring at least 7.3 cm in greatest axial dimension. This was present on the prior exam. Small bilateral pleural effusions are present, new compared to the prior exam. A small amount of free fluid is noted in the pelvis which is of uncertain etiology. There is mild anasarca along the abdominal wall. Impression dictated by: Sanjiv Reis M.D.09/08/2024 12:43 AM Dictation Location: [place] [address] Transcribed By: COLETTE 09/08/2442 Dictated By: Sanjiv Reis II, MD 09/08/24 003 Signed By: 09/08/2442 [facility] Work Phone: 1(825) 305-794302-19-2025 Progress note Author Agatha Martinez [facility] CenterNote Date/TimeFebruary 2024 1:35pm [place] [address] Hospitalist Progress Note Signed Patient: Ofe Saravia MR#: [id number] : 1955 Acct:[id number] Age/Sex: 68 / F Adm Date: 5 Loc: Room: [address] [place] [address] Type: ADM IN Attending Dr: Agatha Martinez MD Copies to: ~ Date of Service: 09/07/2024 Subjective Subjective Narrative: Pt was observed sitting up in bed today eating breakfast. She is feeling fatigued, she also experiences lightheadedness when she stands up. Pt says this has been going on for the last week. She tireseasily and has struggled going upthe stairs. She recently stopped her oxycodone to see if this would resolve her symptoms but it did not. Pt has had decreased appetite but did have some breakfast this morning. Pt denies any coughing, SOB or trouble breathing. Exam Physical Exam Vital Signs: Temp Pulse Resp BP Pulse Ox O2 Del Method O2 Flow Rate 98.8 F 97 18 127/60 98 Room Air 3 09/07/24 08:00 09/07/24 08:00 09/07/24 08:00 09/07/24 08:00 09/07/24 08:00 09/07/24 08:00 09/07/24 06:09 Narrative: GENERAL: No apparent distress, alert, oriented HEENT: NC/AT, left sided facial droop , chronic from previous CVA CARDIOVASCULAR: Regular rate and regular rhythm, no murmurs, symmetric palpable radial pulses RESPIRATORY: nonlabored work of breathing on room air, clear to auscultation bilaterally, no wheezes/rales/rhonci ABDOMEN: Soft, non-tender, non-distended, EXTREMITIES: Well-perfused, paresthesias noted in right hand SKIN: Intact, no rash, no trauma PSYCHIATRIC: appropriate mood and affect, cooperative Objective Lab Results 09/07/24 05:14 09/06/24 21:27 Microbiology Results Microbiology 09/06/24 21:30 Nasopharyngeal SARS-CoV-2, Influenza & RSV (PCR) - Final Meds Allergies and Active Meds Allergies No Known Allergies Allergy (Verified 09/06/24 18:15) Active Meds: Active Medications Generic Name Dose Route Start Last Admin Trade Name Freq PRN Reason Stop Dose Admin Azithromycin 500 mg 09/07/24 21:00 Azithromycin 250 Mg Tablet PO Q24H GERMAN Enoxaparin Sodium 40 mg 09/07/24 10:00 Enoxaparin 40 Mg/0.4 Ml Syringe SUBCUT 09/07/25 09:59 DAILY@10 GERMAN Hydromorphone HCl 0.5 mg 09/07/24 04:07 Hydromorphone 0.5 Mg/0.5 Ml Syringe IV-PUSH Q4H PRN Pain Scale 8 - 10 Parenteral Electrolytes 1,000 mls @ 100 mls/hr 09/07/24 04:15 09/07/24 06:05 Plasma-Lyte A Ph 7.4 IV 09/07/24 14:14 999 mls/hr .Q10H GERMAN Administration Ceftriaxone Sodium 1 gm in 50 mls @ 100 mls/hr 09/07/24 23:00 Rocephin IV Q24H GERMAN Sodium Chloride 100 mls @ 20 mls/hr 09/07/24 10:06 0.9% Sodium Chloride 100 Ml IV 09/08/24 10:05 PROTOCOL PRN BLOOD TRANSFUSION Sodium Chloride 0 ml 09/06/24 18:13 09/06/24 22:53 Sodium Chloride 0.9 % 10 Ml Syringe IV-PUSH 09/06/25 18:12 10 ml PRN PRN Administration Flush Tramadol HCl 50 mg 09/07/24 04:07 09/07/24 05:55 Tramadol 50 Mg Tablet PO 03/06/25 04:06 50 mg Q6H PRN Administration Pain Scale 4 - 7 A&P - Hospitalist Assessment/Plan (1) Anemia: (2) History of lung cancer: Plan 68F pmh stage IV lung cancer, stroke, hypothyroidism, presenting with generalized fatigue and lightheadedness. Assessment and Plan: 1. Acute Anemia, symptomatic anemia pt hgb was 9.6 yesterday and today is 7.9. Transfuse 1 unit of pRBCs wbc count downtrending from 14.2 to 11.0 continue ceftriaxone and azithromycin continue pain medication as needed DVT px: SCDs, would hold AP/AC for now Diet: regular Full code Home medications for chronic conditions unless otherwise stated: hypothyroidism Attending Physician Attestation: I personally reviewed the history, performed the landry elements of the exam, formulated the plan of care and confirmed the written note. I agree with the findings and plan as documented in this note and have edited it if needed to reflect my findings and plan. Patient with recent diagnosis of stage 4 lung cancer, unclear what type, [facility], has not started treatment yet. hx of stroke with right sided hemiparesis. Patienthere with symptomatic anemia, although she denies any symptoms of overt GI bleed. Had CT chest showed the lungcancer again, suspect infiltrates, will keep AB for now for the time being, pending cultures. Will further evaluation with CTA AP. Will transfuse 1 unit pRBC for now given symptomatic anemia and significant drop in hb from baseline. Discussed with patient at bedside all questions answeredpatient in agreement with plan. Agatha Soto MD Documented By: Agatha Martinez MD 09/07/24 11 12 Signed By: <Electronically signed by Agatha Martinez MD> 09/07/24 6437 [facility] Work Phone: 1(723) 444-242402-19-2025 Telephone encounter Note* Telephone Encounter - Adina Romero - 09/07/2024 2:13 PM EST Patient's 09/08 appointments at our office have been cancelled. Adina Roman Pss [facility]02-19-2025 Telephone encounter Note* Telephone Encounter - Ghislaine Thakur RN - 09/07/2024 1:50 PM EST Call placed to Domenica, nurse caring for pt. She states pt was admitted with pneumonia. She is currently on IV rocephin and erythromycin. Pt is also receiving 1 unit of blood now for hgb of 7.6. PSS: please cancel pt's appointments here tomorrow as she will still be admitted to [facility]. Thanks Ghislaine Thakur RN [facility]02-19-20[place] [address] Hospitalist Progress Note Signed Patient: Ofe Saravia MR#: [id number] : 1955 Acct:[id number] Age/Sex: 68 / F Adm Date: 5 Loc: Room: [address] [place] [address] Type: ADM IN Attending Dr: Agatha Martinez MD Copies to: ~ Date of Service: 09/07/2024 Subjective Subjective Narrative: Pt was observed sitting up in bed today eating breakfast. She is feeling fatigued, she also experiences lightheadedness when she stands up. Pt says this has been going on for the last week. She tireseasily and has struggled going upthe stairs. She recently stopped her oxycodone to see if this would resolve her symptoms but it did not. Pt has had decreased appetite but did have some breakfast this morning. Pt denies any coughing, SOB or trouble breathing. Exam Physical Exam Vital Signs: Temp Pulse Resp BP Pulse Ox O2 Del Method O2 Flow Rate 98.8 F 97 18 127/60 98 Room Air 3 09/07/24 08:00 09/07/24 08:00 09/07/24 08:00 09/07/24 08:00 09/07/24 08:00 09/07/24 08:00 09/07/24 06:09 Narrative: GENERAL: No apparent distress, alert, oriented HEENT: NC/AT, left sided facial droop , chronic from previous CVA CARDIOVASCULAR: Regular rate and regular rhythm, no murmurs, symmetric palpable radial pulses RESPIRATORY: nonlabored work of breathing on room air, clear to auscultation bilaterally, no wheezes/rales/rhonci ABDOMEN: Soft, non-tender, non-distended, EXTREMITIES: Well-perfused, paresthesias noted in right hand SKIN: Intact, no rash, no trauma PSYCHIATRIC: appropriate mood and affect, cooperative Objective Lab Results 09/07/24 05:14 09/06/24 21:27 Microbiology Results Microbiology 09/06/24 21:30 Nasopharyngeal SARS-CoV-2, Influenza & RSV (PCR) - Final Meds Allergies and Active Meds Allergies No Known Allergies Allergy (Verified 09/06/24 18:15) Active Meds: Active Medications Generic Name Dose Route Start Last Admin Trade Name Freq PRN Reason Stop Dose Admin Azithromycin 500 mg 09/07/24 21:00 Azithromycin 250 Mg Tablet PO Q24H GERMAN Enoxaparin Sodium 40 mg 09/07/24 10:00 Enoxaparin 40 Mg/0.4 Ml Syringe SUBCUT 09/07/25 09:59 DAILY@10 GERMAN Hydromorphone HCl 0.5 mg 09/07/24 04:07 Hydromorphone 0.5 Mg/0.5 Ml Syringe IV-PUSH Q4H PRN Pain Scale 8 - 10 Parenteral Electrolytes 1,000 mls @ 100 mls/hr 09/07/24 04:15 09/07/24 06:05 Plasma-Lyte A Ph 7.4 IV 09/07/24 14:14 999 mls/hr .Q10H GERMAN Administration Ceftriaxone Sodium 1 gm in 50 mls @ 100 mls/hr 09/07/24 23:00 Rocephin IV Q24H GERMAN Sodium Chloride 100 mls @ 20 mls/hr 09/07/24 10:06 0.9% Sodium Chloride 100 Ml IV 09/08/24 10:05 PROTOCOL PRN BLOOD TRANSFUSION Sodium Chloride 0 ml 09/06/24 18:13 09/06/24 22:53 Sodium Chloride 0.9 % 10 Ml Syringe IV-PUSH 09/06/25 18:12 10 ml PRN PRN Administration Flush Tramadol HCl 50 mg 09/07/24 04:07 09/07/24 05:55 Tramadol 50 Mg Tablet PO 03/06/25 04:06 50 mg Q6H PRN Administration Pain Scale 4 - 7 A&P - Hospitalist Assessment/Plan (1) Anemia: (2) History of lung cancer: Plan 68F pmh stage IV lung cancer, stroke, hypothyroidism, presenting with generalized fatigue and lightheadedness. Assessment and Plan: 1. Acute Anemia, symptomatic anemia pt hgb was 9.6 yesterday and today is 7.9. Transfuse 1 unit of pRBCs wbc count downtrending from 14.2 to 11.0 continue ceftriaxone and azithromycin continue pain medication as needed DVT px: SCDs, would hold AP/AC for now Diet: regular Full code Home medications for chronic conditions unless otherwise stated: hypothyroidism Attending Physician Attestation: I personally reviewed the history, performed the landry elements of the exam, formulated the plan of care and confirmed the written note. I agree with the findings and plan as documented in this note and have edited it if needed to reflect my findings and plan. Patient with recent diagnosis of stage 4 lung cancer, unclear what type, [facility], has not started treatment yet. hx of stroke with right sided hemiparesis. Patienthere with symptomatic anemia, although she denies any symptoms of overt GI bleed. Had CT chest showed the lungcancer again, suspect infiltrates, will keep AB for now for the time being, pending cultures. Will further evaluation with CTA AP. Will transfuse 1 unit pRBC for now given symptomatic anemia and significant drop in hb from baseline. Discussed with patient at bedside all questions answeredpatient in agreement with plan. Agatha Soto MD Documented By: Agatha Martinez MD 09/07/24 11 12 Signed By: 09/07/24 1335 [facility]02-19-2025 Telephone encounter Note* Telephone Encounter - Ghislaine Thakur RN - 09/07/2024 9:37 AM EST Pt admitted to 4T at [facility]. Spoke with hoop coiling machine operator and she will have pt's nurse call our office back. Ghislaine Thakur RN [facility]02-19-2025 Evaluation note* Diagnosis Onset Date Resolution Status Admit Date Anemia acuteFebruary 2024 12:51amArthralgiaacuteFebruary 2024 12:51amCAP (community acquired pneumonia)acuteFebruary 2024 12:51amHistory of lung canceracuteFebruary 2024 12:51am [facility] Work Phone: 1(815) 717-181702-19-2025 Evaluation note* Diagnosis Onset Date Resolution Status Admit Date Anemia acuteFebruary 2024 12:51amArthralgiaacuteFebruary 2024 12:51amCAP (community acquired pneumonia)acuteFebruary 2024 12:51amHistory of lung canceracuteFebruary 2024 12:51amHistory of stroke with residual deficit acuteFebruary 2024 12:51amHypothyroidismacuteFebruary 2024 12:51am Impaired mobility and activities of daily livingacuteFebruary 2024 12:51am Intermittent feveracuteFebruary 2024 12:51amLoose stoolsacuteFebruary 2024 12:51amMetastatic diseaseacuteFebruary 2024 12:51am [facility] Work Phone: 1(913) 564-472802-19-2025 Evaluation note* Diagnosis Onset Date Resolution Status Admit Date Anemia inactiveFebruary 2024 12:51amArthralgiainactiveFebruary 2024 12:51am CAP (community acquired pneumonia)inactiveFebruary 2024 12:51amHistory of lung cancerinactiveFebruary 2024 12:51amHistory of stroke with residual deficitinactiveFebruary 2024 12:51amHypothyroidisminactiveFebruary 2024 12:51amImpaired mobility and activities of daily livinginactiveFebruary 2024 12:51amIntermittent feverinactiveFebruary 2024 12:51amLoose stoolsinactiveFebruary 2024 12:51amMetastatic diseaseinactiveFebruary 2024 12:51am [facility] Work Phone: 1(619) 301-291102-18-2025 Radiology [facility] [place] [address] [place] [address] CT Scan Report Signed Patient: Ofe Saravia MR#: [id number] : 1955 Acct:[id number] Age/Sex: 68 / F ADM Date: 5 Loc: ER Room: Type: [facility] ER Attending Dr: Copies to: David Grant DO~ Ordering Provider: David Grant DO Date of Service: 09/06/24 CT/CT chest w con: evaluate for pneumonia CT chest w con 09/06/2024 10:43 PM SIGN AND SYMPTOMS: Chills, decreased oral intake, imbalance, nausea. History ofstage IV lung cancerand chronic bronchitis CONTRAST: 90 mL of intravenous Isovue-300 TECHNIQUE: Multidetector CT axial slices of the chest were obtained 08/08/2024 IVcontrast. Multiplanar reformats were performed and viewed on a separate workstation and reviewed to further define anatomy and possible pathology. CT was performed with one or more of the following dose reduction techniques: Automated exposure control, adjustment of the mA and/or kV according to patient size, or use of iterative reconstruction technique. COMPARISON: 08/08/2024. FINDINGS: Lower neck: There is slight heterogeneous enlargement of the left thyroid lobe similar to the priorexam. Vessels: Atherosclerotic changes are noted in the thoracic aorta. Mediastinum and Yvonne: Similar lymphadenopathy is noted in the left hilum and left upper mediastinumwith a 3.8 cm suprahilar mass in the left upper lobe similar to the prior study. Heart: Normal size. No pericardial effusion. Airways: Within normal limits Lungs: Similar lymphadenopathy is noted in the left hilum and left upper mediastinum with a 3.8 cm suprahilar mass in the left upper lobe similar to the prior study. Increasing adjacent airspace opacity is noted in the left upper lobe. There is an enlarging 8 mm intrapulmonary lymph node along the major fissure on the left suspicious for rio metastatic disease. Pleura: There is a small left-sided pleural effusion. Chest Wall: Within normal limits. Upper Abdomen: There is an 11 mm focus of hypoattenuation within the left hepatic lobe suspicious for metastatic disease. This appears to be new when compared to the prior CT. Bones: There is expansile bony destructive process along the coracoid process ofthe scapula on the right. This extends into the anterior margin of the glenoid and is consistent with bony metastatic disease. This has increased in size and now measures 5.2 cm in greatest dimension. CT/CT chest w con IMPRESSION: Similar lymphadenopathy is noted in the left hilum and left upper mediastinum with a 3.8 cm suprahilar mass in the left upper lobe similar to the prior study. Increasing adjacent airspace opacity is noted in the left upper lobe. There is an enlarging 8 mm intrapulmonary lymph node along the major fissure on the left suspiciousfor rio metastatic disease. There is expansile bony destructive process along the coracoid process of the scapula on the right.This extends into the anterior margin of the glenoid and is consistent with bony metastatic disease. This has increased in size and now measures 5.2 cm in greatest dimension. There is a small left-sided pleural effusion. This is new compared prior exam. Impression dictated by: Sanjiv Reis M.D.09/06/2024 11:13 PM Dictation Location: [place] [address] Transcribed By: [facility] 09/06/242312 Dictated By: Sanjiv Reis II, MD 09/06/246 Signed By: 09/06/24 231 [facility] Work Phone: 1(405) 468-474902-18-2025 Telephone encounter Note* Telephone Encounter - Ghislaine Thakur RN - 09/06/2024 4:20 PM EST Pt's notified and he will be taking pt to [facility]. Ghislaine G [place], RN [facility]02-18-2025 Telephone encounter Note* Telephone Encounter - Jazmyne Bryson RN - 09/06/2024 4:18 PM EST Care Coordination Triage Note [facility] notified our team that patient having dizziness, unsteady gain, nausea and chills x 3 days. Background:Lung mass,Metastatic cancer to bone,Neoplasm related pain Assessment: Spoke with both patient and spouse. They already spoke with oncology and was advised togo to the ER. This nurse agreed and also advised to get evaluated in ED. Recommendations: Per Vincent Estrada CNP to review. Jazmyne Bryson RN September 06, 2024 4:24 PM [facility]02-18-2025 Miscellaneous Notes* Telephone Encounter - Jazmyne Bryson RN - 09/06/2024 4:18 PM EST Care Coordination Triage Note [facility] notified our team that patient having dizziness, unsteady gain, nausea and chills x 3 days. Background:Lung mass,Metastatic cancer to bone,Neoplasm related pain Assessment: Spoke with both patient and spouse. They already spoke with oncology and was advised togo to the ER. This nurse agreed and also advised to get evaluated in ED. Recommendations: Per Vincent Estrada CNP to review. Jazmyne Bryson RN September 06, 2024 4:24 PM documented in this encounterProm[facility] Telephone encounter Note * Telephone Encounter - Isaac Gracia MD - 09/06/2024 4:10 PM EST Please send her to ER. Thanks. [facility]02-18-2025 Telephone encounter Note* Telephone Encounter - Ghislaine Thakur RN - 09/06/2024 4:00 PM EST Pt's calls stating pt is having worsening pain, dizziness, nausea, unsteady gait, uncontrollable chills for 3 days now, and pt hasn't been notified of MRI results from 10 days ago. states pt takes tramadol and it slightly takes the edge off for about an hour. Her pain is in her right shoulder and right hip where she's already had radiation. Please advise Ghislaine Thakur RN [facility]02-17-2025 Miscellaneous Notes* Telephone Encounter - Paulina Murphy - 09/05/2024 10:58 AM EST Patient is active with Medicare A/B, LOC 80%. Estimate shows patient financial responsibility is $2977.18 for each treatment in 2024. Called the patient to discuss, unable to leave voicemail as mailbox is full. Reference #[id number]. MyCost sent vis Mychart. Will send application for [employer] Program for free Keytruda since patient only has Medicare A/B. documented in this encounterProm[facility]ica [facility]02-[facility]-2025 Telephone encounter Note * Telephone Encounter - Paulina Murphy - 09/05/2024 10:58 AM EST Patient is active with Medicare A/B, LOC 80%. Estimate shows patient financial responsibility is $2977.18 for each treatment in 2024. Called the patient to discuss, unable to leave voicemail as mailbox is full. Reference #[id number]. MyCost sent vis Mychart. Will send application for [employer] PAP Program for free Keytruda since patient only has Medicare A/B. [facility]02-16-2025 Telephone encounter Note* Telephone Encounter - Armando Veras MD - 09/04/2024 2:14 PM EST Had been taking tramadol but then the pain in her pelvic got worse. The oxycodone started making her confused + visual hallucinations when they went up to 15mg. Oxycodone was stopped last night. She restarted the tramadol. Since restarting the tramadol the symptoms have improved. Also seems to be on gabapentin 300mg TID but this was stopped last night. Recommended restarting tramadol 75mg and changed freuqency to q4 PRN [facility]02-16-2025 Miscellaneous Notes* Telephone Encounter - Armando Veras MD - 09/04/2024 2:14 PM EST Had been taking tramadol but then the pain in her pelvic got worse. The oxycodone started making her confused + visual hallucinations when they went up to 15mg. Oxycodone was stopped last night. She restarted the tramadol. Since restarting the tramadol the symptoms have improved. Also seems to be on gabapentin 300mg TID but this was stopped last night. Recommended restarting tramadol 75mg and changed freuqency to q4 PRN documented in this encounterPromedica [facility]02-12-2025 NoteHNO ID: [id number] Author: ASIA SILVERMAN RN Service: ? Author Type: Registered Nurse Type: Progress Notes Filed: 10/03/2024 23:21 Note Text: Status: Post-menopausal.[facility]02-12-2025 Telephone encounter Note* Telephone Encounter - Ghislaine Thakur RN - 08/31/2024 11:08 AM EST Call placed to pt/spouse and they are aware of medication changes. Deny questions at this time. Ghislaine Thakur RN [facility] Work Phone: 1([phone]) 460-6985401810-25-1090 Miscellaneous Notes* Telephone Encounter - Ghislaine Thakur RN - 08/31/2024 11:08 AM EST Call placed to pt/spouse and they are aware of medication changes. Deny questions at this time. Ghislaine Thakur RN * Telephone Encounter - Jazmyne Bryson RN - 08/31/2024 9:55 AM EST Updated medication recommendations sent in other telephone encounter. Jazmyne Bryson RN August 31, 2024 9:55 AM * Telephone Encounter - Vincent Estrada APRN.SKYLAR - 08/31/2024 9:09 AM EST I discharged morphine Increase Mobic to 15 mg po daily with food Oxycodone 10- 20 mg po every 4 hours Increase gabapentin to 300 mg po TID * Telephone Encounter - Ghislaine Thakur RN - 08/30/2024 4:23 PM EST Pt here for education today stating her pain is getting worse and her pain medication isn't helpingat all. Pt stopped the morphine yesterday because it made her very confused, she didn't know who she was or where she was at, and she had terrible itching with it. Pt states she continues to take theoxycodone every 6 hours which isn't helping. She rates her right shoulder pain a 6/10, and her right hip pain an 8/10. Please advise Ghislaine Thakur RN documented in this encounterPromedica [facility]02-[facility]-2025 Telephone encounter Note * Telephone Encounter - Jazmyne Bryson RN - 08/31/2024 9:56 AM EST Palliative Medicine at Home Care Coordination New Patient Note Nurse introduced self and role of Sound Installation Worker in Palliative Medicine. Reviewed contact sheet information and on-call process. Nurse educated patient on medication refill process. Nurse encouraged patient to call with any questions/concerns/symptom related issues. Jazmyne Bryson RN [facility]02-12-2025 Miscellaneous Notes* Telephone Encounter - Jazmyne Bryson RN - 08/31/2024 9:56 AM EST Palliative Medicine at Home Care Coordination New Patient Note Nurse introduced self and role of Sound Installation Worker in Palliative Medicine. Reviewed contact sheet information and on-call process. Nurse educated patient on medication refill process. Nurse encouraged patient to call with any questions/concerns/symptom related issues. Jazmyne Bryson RN documented in this encounterPromedica [facility]02-[facility]-2025 Telephone encounter Note * Telephone Encounter - Jazmyne Bryson RN - 08/31/2024 9:55 AM EST Updated medication recommendations sent in other telephone encounter. Jazmyne Bryson RN August 31, 2024 9:55 AM [facility]02-12-2025 Telephone encounter Note* Telephone Encounter - Jazmyne Bryson RN - 08/31/2024 9:40 AM EST Palliative Medicine Care Coordination Follow up Phone Call Received an update from Ghislaine Thakur sprinkler irrigation equipment mechanic that patient reports morphine not effective for her pain and stopped taking yesterday due to feelings of confusion and itching. Patient identified by name and : Yes Spoke to: patient and spouse Maximino Nurse calling to follow up on pain and provider recommendations. Discussed with Venus and her that we recommend she no longer take the morphine. Let her know Jihan SKYLAR advised she can increase her Mobic 7.5 mg to 2 tablets to equal 15 mg daily and take with food. Educated she can take when her pain is worse in the am or pm but make sure she takes with food. Let her know we prescribed again the Oxy IR 10 mg, 1-2 tablets (10-20 mg) every 4 hours as needed and increase her gabapentin 300 mg 3 times daily(every 8 hours) She reports was only taking this one time daily but ok to increase to help her pain. She was on the Oxy IR 10 mg before and felt it had only lasted 2 hours. Let her know we increased the dosing so she can take 1 tablet if pain lower than 5/10 and 2 tablets if pain worsening higher than 5/10. Educated on the pain scale, and daily pain log and usage. Advised to take Senna daily to prevent OIC and call if no BM in 2 days or above recommendations ineffective. Will send our contact information and phone numbers in [employer] message. Jazmyne Bryson RN August 31, 2024 9:52 AM [facility]02-12-2025 Miscellaneous Notes* Telephone Encounter - Jazmyne Bryson RN - 08/31/2024 9:40 AM EST Palliative Medicine Care Coordination Follow up Phone Call Received an update from Ghislaine Thakur sprinkler irrigation equipment mechanic that patient reports morphine not effective for her pain and stopped taking yesterday due to feelings of confusion and itching. Patient identified by name and : Yes Spoke to: patient and spouse Maximino Nurse calling to follow up on pain and provider recommendations. Discussed with Venus and her that we recommend she no longer take the morphine. Let her know Jihan CHENG advised she can increase her Mobic 7.5 mg to 2 tablets to equal 15 mg daily and take with food. Educated she can take when her pain is worse in the am or pm but make sure she takes with food. Let her know we prescribed again the Oxy IR 10 mg, 1-2 tablets (10-20 mg) every 4 hours as needed and increase her gabapentin 300 mg 3 times daily(every 8 hours) She reports was only taking this one time daily but ok to increase to help her pain. She was on the Oxy IR 10 mg before and felt it had only lasted 2 hours. Let her know we increased the dosing so she can take 1 tablet if pain lower than 5/10 and 2 tablets if pain worsening higher than 5/10. Educated on the pain scale, and daily pain log and usage. Advised to take Senna daily to prevent OIC and call if no BM in 2 days or above recommendations ineffective. Will send our contact information and phone numbers in [facility] message. Jazmyne Bryson RN August 31, 2024 9:52 AM documented in this encounterPromedica [facility]02-[facility] Telephone encounter Note * Telephone Encounter - Vincent Estrada APRN.CNP - 08/31/2024 9:09 AM EST I discharged morphine Increase Mobic to 15 mg po daily with food Oxycodone 10- 20 mg po every 4 hours Increase gabapentin to 300 mg po TID [facility]02-12-20[facility] History of Present illness Narrative* Ghislaine Thakur RN - 08/31/2024 8:12 AM EST ONCOLOGY PATIENT EDUCATION NOTE TOPIC: Chemotherapy, Immunotherapy Medications: carbo, taxol, keytruda patient and spouse here today for education for treatment of Non-Small Cell Lung Cancer Anticipated/Scheduled start date: 09/09/24 READINESS TO LEARN: COGNITIVE ABILITY: Alert and oriented MOTIVATION TO LEARN: Interested FAMILY SUPPORT: High - Very involved in pt care INSTRUCTION PROVIDED TO: Patient and Spouse INSTRUCTION PROVIDED BY: Nurse Coordinator PATIENT LEARNS BEST BY: Multiple Methods FACTORS AFFECTING LEARNING: None PHYSICAL LIMITATIONS AFFECTING LEARNING: Fatigue and Limited Mobility LEARNING RESPONSE METHOD OF INSTRUCTION: Individual instruction Written instruction/Handouts Verbal instruction PATIENT/FAMILY RESPONSE: Verbalizes understanding of: CHEMOTHERAPY-Regimen, toxicity and side effects INFECTION MANAGEMENT-Signs and symptoms of an infection and importance of contacting the physician MEDICAL REGIMEN-Importance of following prescribed medical regimen MEDICATION PRESCRIBED-Accurate knowledge of prescribed medication prior to discharge MEDICATION ROUTE-Correct route for administration of the prescribed medication MEDICATION SIDE EFFECTS-Side effects associated with the [...] continued instruction and follow up as directed Follow up phone call. Contact information given. SUPPLEMENTAL MATERIAL: Written material was provided at this visit with the following information: - Chemotherapy Immunotherapy education was provided by a pharmacist NO - Side effect management information was provided/discussed including but not limited to: abdominaldiscomfort, anemia, appetite changes, arthralgia, bowel habit changes, chest pain, diet, electrolyte disturbances, fatigue, fluid retention, hair loss, headache, hypersensitivity reaction, infection,kidney toxicity, mouth hygiene, mucositis, myalgia, nausea/vomitting, neutropenia, peripheral neuropathy, rash, risk for DVT, shortness of breath, skin changes, taste changes, thrombocytopenia, pneumonitis, colitis, hepatitis, thyroiditis YES - Provided important phone numbers and contacts during and after hours. YES - Provided information on symptoms that require immediate assistance. YES - Provided Chemotherapy Immunotherapy when to call handouts YES - Preventing infection. YES - Treatment schedule and confirmation of appointment times. YES - Available support groups. NA - The importance of contraception during the course of chemotherapy NA - Prescriptions for anti-emetics or treatment prep was given: Compazine and Zofran. YES - Neutropenic fever protocol discussed with patient, which included the importance of reporting anyfever of 100.4F (38.0C) or greater to the healthcare team as noted on the provided wallet card and/or magnet. YES - Cancer Wellness Program Pamphlet. YES - 4th Jimmy Information. YES - Patient services information. YES - My Journey binder provided to pt Time Spent: 1 hour REFERRAL (RECOMMENDATION): pt aware of services we offer here at our office. Ghislaine Thakur, RN Sound Installation Worker Pre Chemo Patient identified by name and date of . YES Confirmed date and time for chemotherapy ? YES Other appointments (labs, imaging) discussed? YES Discussed where to park (clerk funeral detail), charge for parking YES Discussed where to report (building/floor) YES Any pre-medications ordered? NO Described the infusion room and what to expect. (What to wear, what to bring [iPad, books] amount of time treatment can take, meals and CC options for food) YES Note: pt currently getting radiation to her shoulder and hip Discussed whether the patient can eat prior to labs and treatment. YES Who is driving you to and from treatment? Spouse Discussed why it is important to bring someone with you. No Resources discussed (music therapy, Art therapy, pet therapy, etc.) YES Education on chemotherapy (drug, side effects) discussed and that the patient will be receiving a C1D1 call within 7 days of treatment. YES Other topics discussed, interventions needed: pt having pain and stopped taking morphine due to confusion. Telephone encounter sent to Jihan. Ghislaine Thakur RN documented in this encounterPromedica Bay Park Hospital02-12-2025 History of Present illness Narrative* Juan C Schreiber MD - 08/31/2024 12:00 AM EST [facility] Radiation Oncology Department RADIATION ONCOLOGY - COMPLETION NOTE PATIENT: OFE SARAVIA: 1955 DATES OF TREATMENT: 08-21-2024 TO 08-31-2024 DIAGNOSIS: Ms. Saravia is a 69-year-old woman recently diagnosed with stage IV non-small cell lung cancer with painful skeletal metastases to the right scapula/shoulder and the right hip/pelvis. AREA TREATED: Right Shoulder and Right Pelvis DELIVERED DOSE: Area: Right Shoulder 2000cGy in 5 fractions, 2 Geronimo, 6X & 15X with CBCT daily guidance DELIVERED DOSE: Area: Right Pelvis 2000cGy in 5 fractions, 2 Geronimo, 15X with CBCT daily guidance ELAPSED TIME: 6 days. CLINICAL SUMMARY: The patient tolerated course of palliative radiation therapy well with no significant issues. The patient was able to complete treatment as intended without break interruption or modification of prescription plan. The patient will be evaluated in 3-4 weeks for postradiation follow-up and will follow with Dr. Gracia as scheduled for continued evaluation and systemic therapyrecommendations. Staff Physician Juan C Schreiber M.D. / KG 54:10 AM Electronically Signed cc: Isaac Gracia MD ([facility]) PCP documented in this encounterPromedica Bay Park Hospital02-12-2025 [facility]Mem[facility] Telephone encounter Note* Telephone Encounter - Ghislaine Thakur RN - 08/30/2024 4:23 PM EST Pt here for education today stating her pain is getting worse and her pain medication isn't helpingat all. Pt stopped the morphine yesterday because it made her very confused, she didn't know who she was or where she was at, and she had terrible itching with it. Pt states she continues to take theoxycodone every 6 hours which isn't helping. She rates her right shoulder pain a 6/10, and her right hip pain an 8/10. Please advise Ghislaine Thakur RN [facility]02-11-2025 Telephone encounter Note* Telephone Encounter - Ghislaine Thakur RN - 08/30/2024 8:57 AM EST Pt will be in for chemo ed today. Please sign pending order. Thanks Ghislaine Thakur RN [facility]02-11-2025 Miscellaneous Notes* Telephone Encounter - Ghislaine Thakur RN - 08/30/2024 8:57 AM EST Pt will be in for chemo ed today. Please sign pending order. Thanks Ghislaine Thakur RN documented in this encounterPromedica Bay Park Hospital02-07-2025 Note* Addendum Note - Isaac Gracia MD - 08/26/2024 2:25 PM ESTAddended by: ISAAC GRACIA on: 08/26/2024 02:25 PM Modules accepted: Orders [facility]02-07-2025 Miscellaneous Notes* Addendum Note - Isaac Gracia MD - 08/26/2024 2:25 PM ESTAddended by: ISAAC GRACIA on: 08/26/2024 02:25 PM Modules accepted: Orders documented in this encounterPromedica Bay Park Hospital02-07-2025 Instructions* Patient Instructions* Isaac Gracia MD - 08/26/2024 1:54 PM EST Chemo teach for carbo taxol keytruda Will start chemo in 2 weeks Schedule MRI brain Obtain dental clearance for bisphosphonate therapy F/u in 2 weeks documented in this encounterPromedica Bay Park Hospital02-07-2025 Instructions* Patient Instructions* Vincent Estrada APRN.SKYLAR - 08/26/2024 1:32 PM EST Vincent Estrada CNP Department of Palliative and Supportive Care Palliative Care - Specialty services in symptom management and support For questions or prescription refills, call: [phone] Thursday - Thursday 9AM-5PM TONY Mejia, RN - Sound Installation Worker Please call 3-5 days in advance for medication refills Evenings, Weekends, Holidays: (ask for palliative medicine on-call provider) For appointments, cancellations or reschedule, call: [phone] Estrada CNP Department of Palliative and Supportive Care Palliative Care - Specialty services in symptom management and support For questions or prescription refills, call: [phone] Thursday - Thursday 9AM-5PM TONY Mejia, RN - Sound Installation Worker Please call 3-5 days in advance for medication refills Evenings, Weekends, Holidays: [phone] (ask for palliative medicine on-call provider) For appointments, cancellations or reschedule, call: [phone] documented in this encounterPromedica Bay Park Hospital02-07-2025 History of Present illness Narrative* Isaac Gracia MD - 08/26/2024 1:30 PM EST Images from the original note were not included. PATIENT NAME: Ofe Saravia [facility] NO.: [id number] ATTENDING PHYSICIAN: Isaac Gracia MD DATE OF SERVICE: August 26, [address] Sarabjit Crowley [phone] [facility] [phone] thank you for referring Ofe Saravia for an opinion regarding Lung cancer. CHIEF COMPLAINT: Lung cancer HPI: Ofe Saravia is a 68 year old year old female with PMH of CVA, anxiety. Ms. Saravia first developed right shoulder pain this past [...] studies are pending. She met with Dr. Narayan from rad onc at [facility] who recommended palliative RT closer to home, at [facility]. Venus is a former smoker, having quit 25 years ago after smoking about 1.5 PPD for 18 years. Had 2 radiation treatments so far. Total of 5 treatments. No alcohol. Able to eat and drink good. Current Outpatient Medications Medication Sig acetaminophen (TYLENOL) 325 mg tablet Take 325 mg by mouth as needed for pain. hydroCHLOROthiazide 25 mg tablet Take 1 tablet by mouth every afternoon. levothyroxine (SYNTHROID) 25 mcg tablet Take 25 mcg by mouth once daily. pravastatin (PRAVACHOL) 10 mg tablet Take 10 mg by mouth as needed. (Patient not taking: Reported on 08/24/2024) oxyCODONE IR (ROXICODONE) 5 mg immediate release tablet Take 1-2 tablets by mouth every 6 hours as needed for pain for up to 7 days. for pain. FLUoxetine (PROZAC) 20 mg capsule Take 20 mg by mouth once daily. ezetimibe (ZETIA) 10 mg tablet Take 10 mg by mouth once daily. propranolol (INDERAL) 20 mg tablet as needed. 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 SKIN: Negative for lesions, rash, and itching. HEMATOLOGY/LYMPHOLOGY Negative for prolonged bleeding, bruising easily, and swollen nodes. NEURO: Negative for numbness or tingling of hands/feet. No weakness. PHYSICAL EXAMINATION: LMP 05/24/2007 There were no vitals taken for this visit. Last 3 Encounter Wt Readings: Date: Wt: 08/23/2024 90.7 kg (200 lb) 08/23/2024 92.4 kg (203 lb 11.3 oz) 08/22/2024 91.3 kg (201 lb 4.5 oz) General appearance:ECOG PERFORMANCE STATUS: 3- Capable of only limited selfcare, confined to bed/chair > 50% of waking hrs. Patient in NAD. Skin: Skin color, texture, turgor normal. No rashes or lesions. Eyes: Anicteric sclera. Pupils are equally round and reactive to light. Extraocular movements are intact. Breast: No palpable breast masses. No nipple change or discharge. Lymph Nodes: No cervical, supraclavicular, axillary or inguinal adenopathy. Oropharynx: Lips, mucosa, and tongue normal. Back: No pain to percussion. Negative SLR test Lungs clear to auscultation, No wheezing or rhonchi Heart: RRR without murmur, gallop, or rubs. Abdomen soft, non-tender. No masses, organomegaly Extremities: No deformities. No edema Neuro: Gait and speech normal. Reflexes normal and symmetric. Muscular strength intact. Sensation grossly intact. Rectal: Deferred : Deferred LABS: Glucose (mg/dL) Date Value 07/29/2024 120 12/24/2009 157 Potassium (mmol/L) Date Value 07/29/2024 4.0 12/24/2009 4.1 Sodium (mmol/L) Date Value 07/29/2024 141 12/24/2009 140 Chloride (mmol/L) Date Value 07/29/2024 100 12/24/2009 104 CO2 (mmol/L) Date Value 07/29/2024 27 12/24/2009 22 Creatinine (mg/dL) Date Value 07/29/2024 0.68 12/24/2009 0.52 BUN (mg/dL) Date Value 07/29/2024 19 12/24/2009 13 Anion Gap (mmol/L) Date Value 07/29/2024 14 12/24/2009 14 Calcium (mg/dL) Date Value 12/24/2009 9.1 Calcium, Total (mg/dL) Date Value 07/29/2024 9.8 Protein, Total (g/dL) Date Value 07/29/2024 7.9 07/29/2024 7.2 Albumin (g/dL) Date Value 07/29/2024 4.0 Bilirubin, Total (mg/dL) Date Value 07/29/2024 0.3 Alkaline Phosphatase (U/L) Date Value 07/29/2024 96 AST (U/L) Date Value 07/29/2024 16 ALT (U/L) Date Value 07/29/2024 17 WBC Date Value Ref Range Status 07/29/2024 10.22 3.70 - 11.00 k/uL Final RBC Date Value Ref Range Status 07/29/2024 4.06 3.90 - 5.20 m/uL Final Hemoglobin Date Value Ref Range Status 07/29/2024 12.3 11.5 - 15.5 g/dL Final Hematocrit Date Value Ref Range Status 07/29/2024 38.0 36.0 - 46.0 % Final MCV Date Value Ref Range Status 07/29/2024 93.6 80.0 - 100.0 fL Final MCH Date Value Ref Range Status 07/29/2024 30.3 26.0 - 34.0 pg Final MCHC Date Value Ref Range Status 07/29/2024 32.4 30.5 - 36.0 g/dL Final RDW-CV Date Value Ref Range Status 07/29/2024 12.0 11.5 - 15.0 % Final Platelet Count Date Value Ref Range Status 07/29/2024 433 (H) 150 - 400 k/uL Final MPV Date Value Ref Range Status 07/29/2024 9.4 9.0 - 12.7 fL Final Abs Neut Date Value Ref Range Status 07/29/2024 7.50 1.45 - 7.50 k/uL Final Lymphocytes % Date Value Ref Range Status 07/29/2024 16.1 % Final Abs Lymph Date Value Ref Range Status 07/29/2024 1.65 1.00 - 4.00 k/uL Final Monocytes % Date Value Ref Range Status 07/29/2024 8.3 % Final Abs [place] Date Value Ref Range Status 07/29/2024 0.85 <0.87 k/uL Final Abs Eosin Date Value Ref Range Status 07/29/2024 0.14 <0.46 k/uL Final Basophils % Date Value Ref Range Status 07/29/2024 0.5 % Final Abs Baso Date Value Ref Range Status 07/29/2024 0.05 <0.11 k/uL Final PATH: FINAL DIAGNOSIS A. [...] be excluded. IMAGING: ASSESSMENT AND PLAN: Ofe Saravia is a 68 year old year old female referred to us for metastatic squamous cell lung cancer. H/o CVA. PLAN: -CT chest abdomen pelvis showed left upper lobe mass, enlarged AP window lymph node and lytic lesions at the right scapula and the right iliac bone. -Right shoulder soft tissue biopsy showed metastatic carcinoma with squamous differentiation of lung origin - MRI brain pending - Molecular tests pending - She had 2 radiation treatments so far to the right scapula and the right iliac bone. Total of 5 treatments. -We will start her on CarboTaxol Keytruda every 3 weeks -Xgeva every 6 weeks. Advised her to get dental clearance -Pain medications as per the palliative care -All her questions answered in detail -Follow-up in [address] Sarabjit Crowley [phone] [facility] [id number] thank you for allowing me to participate in Ofe Saravia care, if there are any questions or concerns please do not hesitate to contact me at the number below. I spent a total of 60 minutes on the date of the service which included preparing to see the patient, [id number] patient care, completing clinical documentation, obtaining and/or reviewing separately obtained history, performing a medically appropriate examination, counseling and educating the pat ient/family/caregiver, ordering medications, tests, or procedures, communicating with other HCPs (not separately reported), independently interpreting results (not separately reported), communicatingresults to the patient/family/caregiver, and care coordination (not separately reported). Isaac Gracia MD. Hematology/Medical Oncology [facility] [phone] CC: documented in this encounterPromedica Bay Park Hospital02-07-2025 NoteMemorial [facility]02-07-2025 History of Present illness Narrative* Vincent Estrada, SK[employer] UPPERS [employer] LININGS.KNIFER UP - 08/26/2024 1:00 PM EST PALLIATIVE MEDICINE INITIAL CONSULT SERVICE DATE: 08/26/2024 Referring Physician: Yasmeen Narayan [id number] [facility] [id number] Medical Oncologist: Isaac Garcia MD Radiation Oncologist: Juan C Schreiber MD Primary Physician: Asya Clements Jr, DO REASON FOR CONSULT: Neoplasm Related Pain Subjective Ofe Saravia is a 68 year old female with history of metastatic NSCLC (squamous cell carcinoma). Ms. Saravia first developed right shoulder pain this past April which persisted despite conservative measures. She brought this to the attention of her PCP who ordered an MRI of the right shoulder. The scan was performed on 07/01/2024 which revealed an expansile lesion involving the anterosuperior aspect of the glenoid with extension to the adjacent base of the coracoid process and soft tissues, associated with a displaced pathologic fracture of the coracoid process. Further workup with CT CAP revealed a NITISH mass (3.4 x 2.9 x 3.1 cm) with adjacent satellite nodules and redemonstrated the lytic lesion involving the right scapula in addition to a right iliac metastasis She reports ongoing pain in the right shoulder/arm and hip. The hip pain is limiting her ability toambulate, practically making her wheelchair-bound. Will be starting palliative radiation. Using 10 mg of oxycodone every 4 hours, having significant end of dose pain. Pain described as an ache. Positive constipation, last BM three days ago, using stool softener. Appetite is poor the last few days since she has been constipated, no nausea. 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 hydroCHLOROthiazide 25 mg tablet Take 1 tablet by mouth every afternoon. levothyroxine (SYNTHROID) 25 mcg tablet Take 25 mcg by mouth once daily. pravastatin (PRAVACHOL) 10 mg tablet Take 10 mg by mouth as needed. (Patient not taking: Reported on 08/24/2024) oxyCODONE IR (ROXICODONE) 5 mg immediate release tablet Take 1-2 tablets by mouth every 6 hours as needed for pain for up to 7 days. for pain. FLUoxetine (PROZAC) 20 mg capsule Take 20 mg by mouth once daily. ezetimibe (ZETIA) 10 mg tablet Take 10 mg by mouth once daily. propranolol (INDERAL) 20 mg tablet as needed. vitamin b complex tab Take 1 tablet by mouth once daily. ASCORBIC ACID (VITAMIN C ORAL) Take by mouth. Magnesium Oxide-Mg Amino Acid Chelate 300 mg cap Take 300 mg by mouth daily at bedtime. CHOLECALCIFEROL (VITAMIN D3) 2,000 UNIT CAP Take one(1) tablet daily. ALLERGIES: ALLERGIES Allergen Reactions Seasonal Allergies Itching FAMILY HISTORY: FAMILY HISTORY Problem Relation Age of Onset [...] No Family History Amblyopia No Family History SOCIAL HISTORY: Drug Use: No (denies tx for drug/alcohol abuse in the past. ) Alcohol Use: No Tobacco Use: Types: Cigarettes REVIEW OF SYSTEMS: Modified ESAS ([place] Symptom Assessment Scale): Information Provided By: Patient and Family member Pain: Moderate Nausea: None Loss of Appetite: Moderate Constipation: Moderate Shortness of Breath: None Drowsiness: None Tiredness: Moderate Depression: None Anxiety: None Review of Systems Objective ECOG PERFORMANCE STATUS: 2- Ambulatory and capable of all selfcare; unable to carry out work activities. Up and about > 50% of waking hrs. PHYSICAL EXAMINATION: Vital signs: LMP 05/24/2007 Last 1 Encounter Temp Readings: Date: Temp: Temp Src: 08/24/2024 37.3 C (99.1 F) Last 1 Encounter Resp Readings: Date: Resp: 08/24/2024 18 Last 1 Encounter Pulse Readings: Date: Pulse: 08/24/2024 83 Last 1 Encounter BP Readings: Date: BP: 08/24/2024 122/70 Physical Exam DATA: Diagnostic tests reviewed for today's visit: Most recent labs and imaging results. Estimated Creatinine Clearance: 95.4 mL/min (based on SCr of 0.68 mg/dL). Opioid Management: Yes Indication for Opioid Prescribing: Cancer related pain Review of previous pain treatment and response to treatment completed?: Yes How much does pain impede patient s ability to engage in work or other purposeful activities, interfere with your activities of daily living, physical activity, or quality of your family life and social activities? Significantly Objective goals of treatment:Improved comfort and function based on an ongoing functional assessment Rationale for medication choice and dosage: Based on a review of patient's previous therapies, diagnosis, goals of therapy and an assessment of the risks and benefits of using opioid therapy Expected duration of treatment: At least three months, based on an ongoing assessment at least every three months ORT-OUD Score: 1 A score of 3 or higher may indicate a higher risk for future development of aberrant drug related behavior or opioid use disorder. History of substance misuse or substance use disorder?: No OARRS checked?: Yes, no abberancy Naloxone offered?: Yes, accepted Prescribed Morphine Equivalent Daily Dose (MEDD): Yes > 50 MEDD Yes, I am certified in Hospice and Palliative Care, Hematology, Medical Oncology or Pain Medicine Chronic Opioid Management Agreement and Informed Consent: Signed today Vincent Estrada, JUDY, SK[employer]PP[employer] LININGS.KNIFER UP Assessment & Plan (Z51.5) Palliative care by specialist (primary encounter diagnosis) - Introduced philosophy of palliative medicine and hospice to family. - Discussed services offered by [facility] and hospice - Provided support to family - Discussed goals of care and how they align with current plan of care - Discussed / described code status and implications while in the hospital - PT remains (R91.8) Lung mass (C79.51) Metastatic cancer to bone (HCC) (G89.3) Neoplasm related pain .03, T40.2X5A) Constipation due to opioid therapy - morphine SR (MS CONTIN) 15 mg po every 12 hours - Oxycodone 10 mg po very 6 hours prn pain - Mobic 7.5 mg po daily with food - Senna S daily, hold for loose stool (R63.0) Anorexia -Hope is improved constipation will improve appetite - will continue to monitor Some elements copied from Oncology note on 08/23/24, the elements have been updated and all reflect current decision making from today, 08/26/2024. Existence of Advance Directives: Yes, documentation or copy in medical record Next Visit:4 Weeks in person Recommendations will be communicated back to the consulting service by way of shared electronic medical record. Vincent Estrada NP, [employer].KNIFER UP August 26, 2024 11:38 AM I spent a total of 45 minutes on the date of the service which included preparing to see the patient, [id number] patient care, completing clinical documentation, obtaining and/or reviewing separately obtained history, performing a medically appropriate examination, counseling and educating the pat ient/family/caregiver, ordering medications, tests, or procedures, communicating with other HCPs (not separately reported), independently interpreting results (not separately reported), communicatingresults to the patient/family/caregiver, and care coordination (not separately reported) . This note may have been partially generated using the trend.ly voice recognition system. While every effort was made to correct voice recognition errors, kindly be aware that some errors may occasionally occur. documented in this encounterPromedica Bay Park Hospital02-07-2025 NoteMem[facility]02-[facility]-2025 NoteMem[facility]02-05-2025 History of Present illness Narrative* Juan C Schreiber MD - 08/24/2024 11:44 PM EST Images from the original note were not included. Radiation Oncology - New Patient/Consult Note PATIENT NAME: Ofe Saravia PATIENT Signed: Juan C Schreiber MD I spent a total of 60 minutes on the date of the service which included preparing to see the patient, [id number] patient care, and counseling and educating the patient/family/caregiver. This document has been created with the use of voice recognition technology. It may contain inaccuracies, misspellings, inaccurate syntax or inappropriate word context that are a result of the inadequacies/shortcomings of said technology/software. documented in this encounterPromedica Bay Park Hospital02-05-2025 NoteMem[facility]02-05-20[facility] History of Present illness Narrative* Asia Silverman RN - 08/24/2024 4:49 PM EST Radiation Therapy - Patient Education Note PATIENT NAME: Ofe Saravia PATIENT August 24, 2024 [facility] FACILITY/LOCATION: [facility] READINESS TO LEARN Cognitive Ability: Alert and oriented Motivation to learn: Interested Family Support: High - Very involved in pt care Instruction provide to: Patient and Spouse Patient learns best by: Multiple Methods Factors effecting learning: None Physical limitations effecting learning: Pain LEARNING RESPONSE Diagnosis: Pt simulated today for radiation therapy to right shoulder and right hip. Education Topic/Teaching Points: Radiation therapy, Side effects, and OTV: Method of instruction: Written instruction/Handouts Verbal instruction Patient /Family response: Patient and family verbalized understanding of radiation treatments, sideeffects, OTV, and transportation. Follow-up plan: Patient instructed to call with any further issues Recommend - Recommend continued instruction and follow up as directed Contact information given. Supplemental material: Informational handouts on Diarrhea and Skin changes. Referral (recommendation): None, Pt denied need for social work, van service, and slide fastener repairer. Was PED reviewed? No Patient has an Onbody or Implanted device: No Signed by: Asia Silverman RN documented in this encounterPromedica Bay Park Hospital02-05-2025 Telephone encounter Note * Telephone Encounter - Clarissa Cid - 08/24/2024 8:49 AM EST Consult and rad ed added. Patient called and confirmed 215 today arrival [facility]02-05-2025 Miscellaneous Notes* Telephone Encounter - Clarissa Cid - 08/24/2024 8:49 AM EST Consult and rad ed added. Patient called and confirmed 215 today arrival * Telephone Encounter - Naty Gamboa RT(R) - 08/24/2024 8:27 AM EST Sim scheduled today at 330 PSS - please schedule consult with MARYLIN at 230 & notify pt of 215 arrival time today, no specialinstructions Thanks! RT Alan(R)(T) * Telephone Encounter - Asia Silverman RN - 08/24/2024 8:12 AM EST PSS/RT: Please schedule consult with Dr. Schreiber and SIM VINNIE-treating right hip and right shoulder possibly with severe pain. Consult SIM treating right hip and right shoulder Nurse ed same day as consult/sim Thanks MEKHI Tavera Jaquelin Donovan Female, 68 year old, 1955 eMRN: [id number] Code: Full Code by Default ACP/Adv Dir: Sung Alexander, this is a very unfortunate woman with a new dx of stage IV lung cancer with severe Rshoulder and R hip pain, she lives near you in [place]. I suggested a 5-fraction pall schedule to each site and she would like to get it close to home with you. Can you please set her up for this bythe end of this week? Thanks gv documented in this encounterPromedica Bay Park Hospital02-05-2025 Telephone encounter Note * Telephone Encounter - Naty Gamboa RT(R) - 08/24/2024 8:27 AM EST Sim scheduled today at 330 PSS - please schedule consult with MARYLIN at 230 & notify pt of 215 arrival time today, no specialinstructions Thanks! RT Alan(R)(T) [facility] Work Phone: 1(162) 145-346502-05-2025 Telephone encounter Note* Telephone Encounter - Asia Silverman RN - 08/24/2024 8:12 AM EST PSS/RT: Please schedule consult with Dr. Schreiber and BELEM VINNIE-treating right hip and right shoulder possibly with severe pain. Consult SIM treating right hip and right shoulder Nurse ed same day as consult/sim Thanks MEKHI Tavera Sachin Donovan Female, 68 year old, 1955 eMRN: [id number] Code: Full Code by Default ACP/Adv Dir: Sung Alexander, this is a very unfortunate woman with a new dx of stage IV lung cancer with severe Rshoulder and R hip pain, she lives near you in [place]. I suggested a 5-fraction pall schedule to each site and she would like to get it close to home with you. Can you please set her up for this bythe end of this week? 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 FIXATION DEVICE: In order to achieve accurate and reproducible treatments, the patient is immobilized with ORFIT AIO A time-out was conducted and recorded by the therapist. CT scan was completed for target localization and planning. Field arrangement will be determined after plan has been completed. The patient is scheduled for a verification simulation on the treatment machine to ensure proper set-up and field arrangement is correct prior to the first treatment of primary and boost geronimo if applicable. Patient education will be completed per nursing. Electronically Signed Juan C Schreiber M.D. / NRS 53:35 AM documented in this encounterPromedica Bay Park Hospital02-05-2025 History of Present illness Narrative* Juan C Schreiber MD - 08/24/2024 12:00 AM EST OFE SARAVIA [id number] 08/24/2024 [facility] Department of Radiation Oncology Treatment Planning Note For reasons stated in the consult note, Ofe Saravia is a candidate for radiation therapy. Based onreview and interpretation of the relevant diagnostic studies together with the exam findings, Morris was simulated on 08/24/2024 at which time the target volume and/or requisite geronimo were delineated, as indicated in the simulation note, to be treated according to the prescription. After reviewing the treatment plan with dosimetry, the plan was approved to deliver the prescribed course of radiation to the target area to allow for the best isodose distribution, treating to the 100% isodose line with 6 and 15MV and 4 geronimo. Custom MLC wedges asym jaws were the treatment devices used to shape/modify the beams. Special consideration to these and other structures was given in light of the potential for increased toxicities of treatment of multiple sites concurrently. A completed summary of this plan dated 08/25/2024 incorporated herein by reference includes dose, beam arrangements, energy, blocking, isodose distribution, and/or ports and DVH. Electronically Signed Juan C Schreiber M.D. 1:22 PM documented in this encounterPromedica Bay Park Hospital02-05-2025 NoteMem[facility]02-[facility] NoteMem[facility]02-04-[facility] History of Present illness Narrative* Sarabjit Crowley DO - 08/23/2024 2:00 PM EST Images from the original note were not included. [facility] NEW PATIENT VISIT Department of Hematology and Medical Oncology PATIENT NAME: Ofe Saravia NO.: [id number] DATE OF SERVICE: 08/23/2024 PCP: Asya Clements Jr, DO REFERRING PROVIDER: Darian Barclay PA-C DIAGNOSIS: Metastatic NSCLC (squamous cell carcinoma) STAGE: Stage IVB BIOMARKERS: PD-L1 by TPS = PENDING NGS by [facility] TOP = N/A PRIOR THERAPY: None CURRENT THERAPY: TBD SPECIAL MEDICAL ISSUES: Prior CVA Palatal myoclonus Brainstem cavernoma PALLIATIVE CARE PROVIDER: TBD CHIEF COMPLAINT: New diagnosis of metastatic lung cancer HISTORY OF PRESENT ILLNESS: Ms. Ofe Saravia is a 68 year old woman with recently diagnosed metastatic NSCLC (squamous cell carcinoma) who presents for evaluation regarding her diagnosis and management. Ms. Saravia first developed right shoulder pain this past [...] the coracoid process. Further workup with CT CAPrevealed a NITISH mass (3.4 x 2.9 x 3.1 cm) with adjacent satellite nodules and redemonstrated the lytic lesion involving the right scapula in addition to a right iliac metastasis. Biopsy of the right shoulder soft tissue mass was performed on 08/10/2024 and returned positive for metastatic squamous cell carcinoma (IHC positive for CK5/6 and p40; negative for TTF-1, CDX2, GATA3). Biomarker studies are pending. She met with Dr. Narayan from rad onc at [facility] who recommended palliative RT closer to home, at [facility]. Ofe is accompanied by her at today's appointment. She reports ongoing pain in the right shoulder/arm and hip. The hip pain is limiting her ability to ambulate, practically making her wheelchair-bound. She denies any difficulty breathing, cough, chest pain, nausea, or vomiting. She does report changes to her appetite and unintentional weight loss over the last several months though. Venus is a former smoker, having quit 25 years ago after smoking about 1.5 PPD for 18 years. REVIEW OF SYSTEMS: As described above. All other systems were reviewed and were negative. 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 hydroCHLOROthiazide 25 mg tablet Take 1 tablet by mouth every afternoon. levothyroxine (SYNTHROID) 25 mcg tablet Take 25 mcg by mouth once daily. pravastatin (PRAVACHOL) 10 mg tablet Take 10 mg by mouth as needed. oxyCODONE IR (ROXICODONE) 5 mg immediate release tablet Take 1-2 tablets by mouth every 6 hours as needed for pain for up to 7 days. for pain. FLUoxetine (PROZAC) 20 mg capsule Take 20 mg by mouth once daily. ezetimibe (ZETIA) 10 mg tablet Take 10 mg by mouth once daily. propranolol (INDERAL) 20 mg tablet as needed. vitamin b complex tab Take 1 tablet by mouth once daily. ASCORBIC ACID (VITAMIN C ORAL) Take by mouth. Magnesium Oxide-Mg Amino Acid Chelate 300 mg cap Take 300 mg by mouth daily at bedtime. CHOLECALCIFEROL (VITAMIN D3) 2,000 UNIT CAP Take one(1) tablet daily. ALLERGIES: ALLERGIES Allergen Reactions Seasonal Allergies Itching FAMILY HISTORY: FAMILY HISTORY Problem Relation Age of Onset Arthritis Mother Hypertension Mother Lipids Mother Thyroid Mother Cataract Mother Cancer Father Alcohol/Drug Father other (kidney cancer) Father Arthritis Sister Hypertension Sister Lipids Sister Thyroid Sister Coronary Artery Disease Brother Cancer Maternal Grandmother Thyroid Paternal Grandmother Glaucoma No Family History Detached Retina No Family History Macular Degen No Family History Blindness No Family History Amblyopia No Family History SOCIAL HISTORY: Social History Tobacco Use Smoking status: Former Current packs/day: 0.00 Average packs/day: 1.5 packs/day for 18.0 years (27.0 ttl pk-yrs) Types: Cigarettes Start date: 07/20/1981 Quit date: 07/20/1999 Years since quittin.1 Smokeless tobacco: Never Vaping Use Vaping status: Never Used Substance Use Topics Alcohol use: No Drug use: No Comment: denies tx for drug/alcohol abuse in the past. PHYSICAL EXAMINATION: 08/23/24 1335 BP: 132/62 Pulse: 89 Resp: 18 Temp: 36.6 C (97.8 F) TempSrc: Temporal SpO2: 95% Weight: 92.4 kg (203 lb 11.3 oz) ECOG PERFORMANCE STATUS: 3- Capable of only limited selfcare, confined to bed/chair > 50% of waking hrs. General: Alert and oriented, NAD, reports pain in the right arm/shoulder, wheelchair bound due to hip pain from metastasis HEENT: Normocephalic, atraumatic, EOMI Lungs: CTABL, no wheezes, rales, rhonchi appreciated Heart: RRR, NMRG Abdomen: Soft, nontender, no palpable masses, rigidity, or guarding MSK: Warm and well perfused, no peripheral edema or cyanosis Skin: Warm and dry, no lesions appreciated Vascular: Intact peripheral pulses Neuro: Left-sided facial droop, no other focal neurological deficits appreciated DIAGNOSTIC STUDIES: LABS: Recent Labs 07/29/24 1121 WBC 10.22 HB 12.3 MCV 93.6 PLT 433* ABSNEUT 7.50 ABSMONO 0.85 Recent Labs 07/29/24 1121 NA 141 K 4.0 CHLOR 100 CO2 27 BUN 19 CREAT 0.68 ALB 4.0 TPROT 7.9 7.2 CA 9.8 ALT 17 AST 16 TBILI 0.3 GLUC 120* EGFROTH 96 Recent Labs 07/29/24 1121 APTT 29.5 PTSEC 12.1 INR 1.1 IMAGING: Images and reports from OSH CT CAP (08/08/2024) reviewed. There is a left upper lobe mass measuring 3.4 x 2.9 x 3.1 cm with adjacent satellite nodules. In addition there is an enlarged AP window lymph node and lytic lesions involving the right scapula and right iliac bone (7.2 x 4.4 cm). PATHOLOGY: SURGICAL PATHOLOGY: [id number] Order: [id number] Collected 08/10/2024 9:05 AM Status: Final result Visible to patient: Yes (seen) 0 Result Notes Component FINAL DIAGNOSIS A. Soft tissue, right shoulder, [...] carcinoma of lung primary cannot be excluded. IMPRESSION AND PLAN: Ms. Ofe Saravia is a 68 year old woman with recently diagnosed metastatic NSCLC (squamous cell carcinoma) who presents for evaluation regarding her diagnosis and management. Outside hospital CT CAP demonstrates a NITISH mass (3.4 x 2.9 x 3.1 cm) with adjacent satellite nodules and the lytic lesions involving the right scapula and right iliac bone. Biopsy of the right shoulder soft tissue mass was performed on 08/10/2024 and returned positive for metastatic squamous cell carcinoma (IHC positive for CK5/6 and p40; negative for TTF-1, CDX2, GATA3). Biomarker studies and MRIbrain are pending. She met with Dr. Narayan from rad onc at [facility] who recommended palliative RT closer to home, at [facility]. I reviewed the diagnosis of stage IV, metastatic lung cancer with the patient and her family members during today's appointment while outlining aspects of the disease's underlying biology and naturalclinical course. I explained that, although incurable, we have effective treatment options for controlling the disease while offering improvement in her quality of life. I discussed various systemic treatment options for lung cancer including chemotherapy, immunotherapy, and agents which target certain mutation types or receptors. I also introduced the concept of clinical trials, both as front-line and subsequent lines of therapy. The patient was not interested in pursuing a clinical trial. I recommended that she begin front-line immunotherapy +/- chemotherapy depending on the results of her pending biomarker studies. I reviewed the side effect profile of chemoimmunotherapy in detail and addressed any questions or concerns she or her had about treatment. Plan: 1. MRI brain w/wo contrast to complete staging workup 2. PD-L1 expression levels requested from tumor specimen 3. Depending on results from biomarker studies, recommend front-line carboplatin/Taxol/pembrolizumab vs pembrolizumab monotherapy (if high PD-L1 expression) 4. Referral placed to medical oncology at [facility] per patient preference, given proximity to home 5. Patient scheduled to establish care with palliative medicine at [facility] this week 6. Agree with plans for palliative RT to painful bone lesions All questions and concerns have been addressed. Final recommendations will be shared with Darian Barclay PA-C and communicated with the team. I spent a total of 60 minutes on the date of the service which included preparing to see the patient, [id number] patient care, completing clinical documentation, obtaining and/or reviewing separately obtained history, performing a medically appropriate examination, counseling and educating the pat ient/family/caregiver, ordering medications, tests, or procedures, independently interpreting results (not separately reported), and communicating results to the patient/family/caregiver. Sarabjit Crowley DO Associate Staff, Department of Hematology and Medical Oncology [facility] August 23, 2024 12:19 PM * Nick SpringBRITT - 08/23/2024 1:36 PM EST Additional intake questions: Has the patient had fever, nausea, vomiting, diarrhea, constipation, fatigue for > 1 week? Yes, constipation (day of last BM 08/21/2024) and fatigue Does the patient have a decreased appetite? Yes Does patient want to see a Public Health Administrator? No (yes to any of above refer patient to schedulers for dietitian appointment) ) Does patient have any new or increased numbness or tingling of extremities? No Is patient interested in fertility information? No Does patient need any prescription refills? No Does patient have an advanced directive in place? Yes Electronically Signed By: Sravanthi Romero LPN documented in this encounterPromedica Bay Park Hospital02-04-2025 NoteMem[facility]02-04-2025 NoteMem[facility]02-04-2025 History of Present illness Narrative* Sarabjit Sharma MD - 08/23/2024 9:30 AM EST Orthopaedic Oncology Clinic Follow-Up Note CC: Metastatic carcinoma of right scapula and right ilium Date of Surgery: Recent Surgeries this specialty No cases to display HPI Ofe Saravia is a 68 year old female who presents for the above CC. Presents with her today. She is in a wheelchair due to pain with ambulation. She had a right scapula biopsy completed andthe results are back. She still had a CT chest abdomen pelvis, whole-body bone scan and other labs.She is noting significant pain in the right shoulder area as well as the right hip. Has recently changed her medication schedule, has made slight differences in pain relief but it makes her dizzy. She notes the pain medication helping more with the right hip, not as much with the right shoulder. She has pain with weightbearing and has noted multiple occasions of popping in the right hip area. Shehas pain with weightbearing and limits her activities. She also has a lot of pain in the right shoulder with movement. Had an appointment with radiation oncology yesterday, where radiation treatment was discussed. She will get her radiation treatment out in [place]. Current Outpatient Medications Medication Sig acetaminophen (TYLENOL) 325 mg tablet Take 325 mg by mouth as needed for pain. hydroCHLOROthiazide 25 mg tablet Take 1 tablet by mouth every afternoon. levothyroxine (SYNTHROID) 25 mcg tablet Take 25 mcg by mouth once daily. pravastatin (PRAVACHOL) 10 mg tablet Take 10 mg by mouth as needed. oxyCODONE IR (ROXICODONE) 5 mg immediate release tablet Take 1-2 tablets by mouth every 6 hours as needed for pain for up to 7 days. for pain. FLUoxetine (PROZAC) 20 mg capsule Take 20 mg by mouth once daily. ezetimibe (ZETIA) 10 mg tablet Take 10 mg by mouth once daily. propranolol (INDERAL) 20 mg tablet as needed. vitamin b complex tab Take 1 tablet by mouth once daily. ASCORBIC ACID (VITAMIN C ORAL) Take by mouth. Magnesium Oxide-Mg Amino Acid Chelate 300 mg cap Take 300 mg by mouth daily at bedtime. CHOLECALCIFEROL (VITAMIN D3) 2,000 UNIT CAP Take one(1) tablet daily. No current facility-administered medications for this visit. ROS As per history of present illness, other complete review of systems is negative for fevers, chills,malaise, unintentional weight loss, bone pain, joint pain, soft tissue masses, swollen lymph nodes or skin lesions. PHYSICAL EXAMINATION: Ht 172.7 cm (5' 7.99 ) Wt 90.7 kg (200 lb) LMP 05/24/2007 BMI 30.42 kg/m General: Alert, oriented, no apparent distress Breathing: Normal respiratory rate, breathing is non-labored. Gait: Wheelchair Right Shoulder: Swelling right shoulder TTP anterior shoulder The skin changes are noted. Pain with passive range of motion up to 45 degrees and also pain with active range of motion which is limited as a result of pain. Sensation intact to light touch + 2 radial pulse Right Hip: Tenderness to palpation over the greater trochanteric bursa. No swelling is noted. Pain with straight leg raise to the lateral aspect of her hip. Hip flexion 110 degrees, external rotation 40, internal rotation 20 with pain 5/5 strength abductoin and FF RESULTS REVIEW: Biopsy from 08/10/2024: - Metastatic carcinoma with squamous differentiation. See comment. The history of a left upper lung lobe mass and right shoulder pain is noted. Histologic examinationreveals irregular epithelial nests. The neoplastic cells are positive for CK5/6 and p40, and negative for TTF-1, CDX2, GATA3, supporting the above diagnosis. Although this immunoprofile is not entirely specific, a metastatic carcinoma of lung primary cannot be excluded. I personally reviewed the below images and concur with the radiology reads. CT chest abdomen pelvis from 08/08/2024 shows left upper lobe mass measuring 3.4 x 2.9 x 3.1 cm. There is also there is also adjacent lymph nodes noted. There is a lytic lesion in the right scapula with soft tissue component. There is a lytic lesion in the right iliac Whole-body bone scan completed shows increased uptake in the right scapula and the right iliac bone. IMPRESSION: (C79.51) Metastatic cancer to bone (HCC) (primary encounter diagnosis) (M89.9) Lytic bone lesions on xray (R91.8) Lung mass PLAN: No surgical indication for right shoulder or the right ilium. Recommend palliative radiotherapy as soon as possible. - We discussed shoulder exercises for the right shoulder to avoid adhesive capsulitis while undergoing radiation treatment. Once she completes radiation therapy, I would like her to begin formal therapy to help restore mobility and improve overall function. Return in about 6 weeks (around 10/04/2024) for Xray and follow up with Dr. Sharma. By signing my name below, I, Tyson Timi, attest that this documentation has been prepared underthe direction and in the presence of Dr. Sharma. Electronically signed, Esteban Yañez August 23, 2024 11:11 AM I agree with the Chief Complaint, ROS, and Past Histories independently gathered by the clinical computer support technician and the remaining scribed note accurately describes my personal service to the patient. Sarabjit Sharma MD Director Bioinformatics, Orthopaedic Surgery Division of Musculoskeletal Oncology documented in this encounterPromedica Bay Park Hospital02-04-2025 NoteMemorial Health [facility]02-03-2025 History of Present illness Narrative* Yasmeen Narayan MD - 08/22/2024 10:00 AM EST Images from the original note were not included. Radiation Oncology - New Patient/Consult Note PATIENT NAME: Ofe Saravia PATIENT REQUESTING PROVIDER: Darian Barclay PA-C . DIAGNOSIS: 68 year old female with L lung cancer metastatic to bone (right scapula and right iliac), Squamous CA. HPI: 68 year old female who presents with above diagnosis, for an opinion regarding the role of radiation therapy in the management of the patient's disease. Final recommendations will be communicated back to the requesting physician by way of the shared medical record, or letter to requesting physician via US mail. The pt is seen today in the company of her . She is in a wheelchair as she cannot ambulate due to R hip pain. Her history goes back to April 2024, when she started feeling continuous right shoulder pain for which she took ibuprofen. The pain worsened and did not response to medication. Her PCP Dr. Asya Clements in [place] ordered an MRI of the R shoulder as the expectation was that she had a degenerative joint issue. and she was referred to a sports physician at [facility]. Dr. Paulina Jacobson. MRI (07/01/2024) . Unfortunately the MRI revealed an expansile lesion involving the anterosuperior aspect of the glenoid extending into the adjacent base of the coracoid process and into the adjacent soft tissues, associated with a displaced pathologic fracture of the base of the coracoid process, likely to be metastatic in origin. In view of the findings, the pt was set up for biopsy. Core biopsy of right shoulder soft tissue was done (08/10/2024), pathology showed metastatic carcinoma with squamous differentiation. Cells were positive for CK5/6 and p40, negative for TTF-1, CDX2, GATA3. Given the finding of metastatic disease, a work up was ordered: CT Chest & CT Abdomen Pelvis (08/08/2024) 1. Left upper lobe mass 3.4 x 2.9 x 3.1 cm with adjacent satellite nodules. 2. Enlarged AP window lymph node suspicious for metastatic disease. 3. Lytic lesion with soft tissue components involving the right scapula and right iliac bone (measuring 7.2 x 4.4 cm in greatest dimensions) suggestive of bony metastatic disease. NM bone scan whole body (08/08/2024) (images not in the chart) Abnormal radiotracer uptake is seen involving the right scapula and right iliac bone consistent with the patient's known lytic lesions. Retained radiotracer uptake involving the right kidney when compared to the left suggesting a degree of obstruction. No obstructing mass or stone is seen on the ct study. For her severe right shoulder pain, she was placed on oxycodone with tylenol one every 6 hours alternating with tramadol and tylenol once every 4 hours. Her Pain score was 10/10 without meds then decreased to 6/10 with meds. She reports that both shoulder and iliac bone hurt a lot and affect her life significantly. She increased her oxy frequency yesterday but because of dizziness switched back to Q6 She reports it is difficult to get up and walk. She still tries to walk but her gait is unsteady and can only walk for a few steps. Her gait is also affected by the stroke she had many years ago, leading to disability affecting her speech, facial, and physical function (2007). She reports being more functional and independent 2 months ago, with performance status sharply declining over past 1-2 months.She reports that her is very supportive, assisting her in most activities of daily living such as cooking, showering. She is referred for consideration of radiation therapy to her right scapula and right iliac bone. Focused ROS: Fatigue: severe Weight loss: 15 pounds in a month and a half. Appetite: poor Nausea: no Shortness of breath: No Cough: yes for 3 months, not productive, happens on most days Hemoptysis: No Dysphagia: No Pain with swallowing: No Maximal point of bony pain: both iliac and scapul Headaches: no Dizziness, imbalance: yes, due to stroke 2 years ago, left side weaker than right Gait changes: wheelchair bound ALLERGIES Allergen Reactions Seasonal Allergies Itching MEDICATIONS: oxyCODONE IR (ROXICODONE) 5 mg immediate release tablet Take 1-2 tablets by mouth every 6 hours as needed for pain for up to 7 days. for pain. FLUoxetine (PROZAC) 20 mg capsule Take 20 mg by mouth once daily. ezetimibe (ZETIA) 10 mg tablet Take 10 mg by mouth once daily. propranolol (INDERAL) 20 mg tablet as needed. vitamin b complex tab Take 1 tablet by mouth once daily. ASCORBIC ACID (VITAMIN C ORAL) Take by mouth. Magnesium Oxide-Mg Amino Acid Chelate 300 mg cap Take 300 mg by mouth daily at bedtime. CHOLECALCIFEROL (VITAMIN D3) 2,000 UNIT CAP Take one(1) tablet daily. 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 No status: Post-menopausal. PAST SURGICAL HISTORY Procedure Laterality Date EYE [...] Mother Lipids Mother Thyroid Mother Cataract Mother Cancer Father Alcohol/Drug Father other (kidney cancer) Father Arthritis Sister Hypertension Sister Lipids Sister Thyroid Sister Coronary Artery Disease Brother Cancer Maternal Grandmother Thyroid Paternal Grandmother Glaucoma No Family History Detached Retina No Family History Macular Degen No Family History Blindness No Family History Amblyopia No Family History Kidney cancer - father - at 57 Maternal grandmother breast cancer at 40 years of age Social History Tobacco Use Smoking status: Former Current packs/day: 0.00 Average packs/day: 1.5 packs/day for 18.0 years (27.0 ttl pk-yrs) Types: Cigarettes Start date: 07/20/1981 Quit date: 07/20/1999 Years since quittin.1 Smokeless tobacco: Never Vaping Use Vaping status: Never Used Substance Use Topics Alcohol use: No Drug use: No Comment: denies tx for drug/alcohol abuse in the past. COMPLETE REVIEW OF SYSTEMS: As noted in HPI PHYSICAL EXAM: BP 133/69 Pulse 79 Temp 36.4 C (97.5 F) (Temporal) Resp 20 Ht 172.7 cm (5' 7.99 ) Wt 91.3 kg (201 lb 4.5 oz) LMP 05/24/2007 SpO2 97% BMI 30.61 kg/m VS: LMP 05/24/2007 KPS: 50 General Appearance: Alert and oriented. No acute distress. Wheelchair, obvious stigmata of previousCVA. Chest: No respiratory distress. Lungs clear to auscultation bilaterally. Heart: Regular rate and rhythm. Abdomen: Soft. Nontender. Musculoskeletal: No edema. Limited range of motion in right upper extremity and bilateral lower extremities due to stroke (left side) and bone metastasis associated pain (right iliac bone). Patient reports tenderness in her right shoulder at the site of metastasis. No grossly seen deformity. 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 RADIOLOGY/LABORATORY DATA: see HPI ASSESSMENT AND PLAN: 68 year old female with NSCLC lung cancer metastatic to bone (right scapula and right iliac) diagnosed at the time of initial presentation, with squamous differentiation, initially detected on pathology from right shoulder soft tissue biopsy (08/10/2024) with subsequent chest CT revealing a 3.4 left upper lobe mass with adjacent satellite nodules, suspicious for malignancy Ms. Ofe Saravia was evaluated and her pain symptoms were discussed, including her current pain medication regimen and pain severity. We assessed the extent to which her bone metastases are affecting her daily functioning. We explained the role of radiation therapy in her treatment plan, including how it targets the lesions causing significant pain and impacting her performance status. We recommended palliative radiation therapy to the right scapula and right iliac lesions, to be administered in 5 fractions. To ensure Ms. Ofe Saravia has convenient access to her treatment, we discussedwhether she would like to receive it at [facility] or at a center near her in [place]. She expressed a preference for receiving treatment at the [facility] in [place]. We discussed the risks, benefits, alternatives, procedures, mechanics and personnel involved in treatment. We also discussed the possible acute and late side effects involved. All questions and concerns were addressed. By the end of our encounter, Ms. Ofe Saravia verbalized good understanding of the treatment plan and was agreeable to proceed with palliative radiation therapy. Signed by: Estrellita De Jesus, MS4 08/22/24 [facility] STAFF PHYSICIAN NOTE OF PERSONAL INVOLVEMENT IN CARE I have reviewed the history and physical examination and consult note obtained and documented by the medical student and I personally participated in the landry components. I have discussed the case andmanagement of the patient's care. The following comments revise or confirm relevant landry components of their note. IMPRESSION: This is a 68 year old female who presents with a new dx of stage IV lung cancer, presenting as R shoulder pain without respiratory sx. Work up revealed lytic disease in the R shoulder joint as well as R pelvic bone disease. Currently her pain control is modest. She is essentially wheelchair bound due to pelvic pain. She lives near [place]. PLAN: 1. Discussed modifications to her pain medication schedule to optimized its benefits 2. Discussed palliative RT to R shoulder and pelvic sites. Rationale R/B/Se/A/P reviewed. All questions answered. Pt verbalized understanding. Due to the distance to [facility], she asked for referral to [facility] for her RT care. I will facilitate this. 3. To see medical oncology tomorrow to discuss systemic therapy to be initiated after palliative RT. SIGNATURE: Yasmeen Narayan MD DATE of SERVICE: August 22, 2024 cc: Asya Clements Jr ([facility]) [address] [place] [phone] Darian Barclay [address] [facility] [address] [place] [id number] * Naty Lambert LPN - 08/22/2024 9:49 AM EST Additional intake questions: Has the patient had fever, nausea, vomiting, diarrhea, constipation, fatigue for > 1 week? Yes, constipation (day of last BM 08/21/24), fatigue, and Provider Notified Does the patient have a decreased appetite? yes Does patient want to see a Public Health Administrator? No (yes to any of above refer patient to schedulers for dietitian appointment) ) Does patient have any new or increased numbness or tingling of extremities? Yes, left side Is patient interested in fertility information? No Does patient need any prescription refills? No Does patient have an advanced directive in place? Yes, copies are in [facility] documented in this [facility]Prom[facility]01-31-2025 [facility]01-31-2025 History of Present illness Narrative* Darian Barclay PA-C - 08/19/2024 9:45 AM EST Orthopaedic Oncology Follow up Virtual Visit CC: Right scapula Biopsy and test result follow up Date of Surgery: Recent Surgeries this specialty No cases to display HPI Ofe Saravia is a 68 year old female who presents virtually for a follow-up with her . Shehad a right scapula biopsy completed and the results are back. She still had a CT chest abdomen pelvis, whole-body bone scan and other labs. She is noting significant pain in the right shoulder area as well as the right hip. She was given tramadol at her previous appointment and is not feeling likethis is helpful. She has pain with weightbearing and has noted a couple weeks ago she felt a pop inthe right hip area. She has pain with weightbearing and limits her activities. She also has a lot of pain in the right shoulder with movement. Current Outpatient Medications Medication Sig oxyCODONE IR (ROXICODONE) 5 mg immediate release tablet Take 1-2 tablets by mouth every 6 hours as needed for pain for up to 7 days. for pain. FLUoxetine (PROZAC) 20 mg capsule Take 20 mg by mouth once daily. ezetimibe (ZETIA) 10 mg tablet Take 10 mg by mouth once daily. propranolol (INDERAL) 20 mg tablet as needed. vitamin b complex tab Take 1 tablet by mouth once daily. ASCORBIC ACID (VITAMIN C ORAL) Take by mouth. Magnesium Oxide-Mg Amino Acid Chelate 300 mg cap Take 300 mg by mouth daily at bedtime. CHOLECALCIFEROL (VITAMIN D3) 2,000 UNIT CAP Take one(1) tablet daily. No current facility-administered medications for this visit. ROS As per history of present illness, other complete review of systems is negative for fevers, chills,malaise, unintentional weight loss PHYSICAL EXAMINATION: LMP 05/24/2007 General: Alert, oriented, no apparent distress Breathing: Normal respiratory rate, breathing is non-labored. RESULTS REVIEW: Soft tissue, right shoulder, core biopsy: - Metastatic carcinoma with squamous differentiation. See comment. The history of a left upper lung lobe mass and right shoulder pain is noted. Histologic examinationreveals irregular epithelial nests. The neoplastic cells are positive for CK5/6 and p40, and negative for TTF-1, CDX2, GATA3, supporting the above diagnosis. Although this immunoprofile is not entirely specific, a metastatic carcinoma of lung primary cannot be excluded. CT chest abdomen pelvis from 08/08/2024 shows left upper lobe mass measuring 3.4 x 2.9 x 3.1 cm. There is also there is also adjacent lymph nodes noted. There is a lytic lesion in the right scapula with soft tissue component. There is a lytic lesion in the right iliac Whole-body bone scan completed shows increased uptake in the right scapula and the right iliac bone. IMPRESSION: (C79.51) Metastatic cancer to bone (HCC) (primary encounter diagnosis) (R91.8) Lung mass (M89.9) Lytic bone lesions on xray We discussed the results of the pathology, labs and imaging. The biopsy confirms metastatic carcinoma. The immunoprofile is not entirely specific, lung primary carcinoma cannot be excluded. PLAN: -Pathology confirms metastatic carcinoma. There is a high suspicion that it is lung cancer, but theimmunoprofile is not entirely specific. We discussed this and also discussed that the medical oncologist would be best to help facilitate the next steps and treatment plan. We are in the process of getting them an appointment with the medical oncologist here at the [facility]. The cancer answer line is working on these appointments. We discussed that the medical oncologist could further answer these types of questions on diagnosis and treatments plan moving forward. -We also want to get you into see a radiation oncologist. We discussed that radiation to the right scapula and the right iliac bone could be helpful in improving pain and quality of life. We discussed that these areas would likely not require any type of surgery. The cancer answer line is also working on scheduling the radiation oncology appointment. -Venus and her 's hope is that the continued treatments long-term would be closer to home [facility] -We will plan to change the pain medication and I will send in a prescription for oxycodone. We discussed that in the future, we may recommend her to see palliative medicine if this oxycodone is not helpful. We also discussed that the hope would be that radiation to the right scapula region and theright iliac bone could be helpful in improving pain as well, along with the systemic therapy that will be hopefully starting soon. -We also made an appointment with Dr. Sharma next week for further discussion on the metastatic lesions and to guide any additional treatment recommendations I spent a total of 24 minutes on the virtual visit Darian Barclay PA-C documented in this encounterPromedica [facility]01-22-2025 NoteMem[facility]01-21-2025 Radiology Diagnostic study [facility] [place] [address] Ultrasound Report Signed Patient: Ofe Saravia MR#: [id number] : 1955 Acct:[id number] Age/Sex: 68 / F ADM Date: 5 Loc: Room: Type: [facility] Attending Dr: Darian Barclay PA-C Ordering Provider: Darian Barclay PA-C Date of Service: 08/09/24 US/US thyroid: E04.1 Copies to: Darian Barclay PA-C~ US thyroid 08/09/2024 3:50 PM SIGNS AND SYMPTOMS: ^E04.1 COMPARISON: 08/08/2024. FINDINGS: The thyroid tissue is hyperemic and heterogeneous. The right thyroid lobe measures 5.29 cm x 1.61 cm x 1.94 cm and the left thyroid lobe measures 5.64 cm x 1.94 cm x 2.78 cm cm. The isthmus measures 0.21 cm Multiple nodules are noted bilaterally. The largest on the right is at the inferior pole. This is isoechoic, spongiform, as warranted tall orientation, and lacks calcifications, and has smooth well-defined margins. This measures 2.6 x 1.8 x 2.1 cm. The largest nodule on the left is at the interpolar region to the inferior pole measuring 2.0 x 1.5x 2.1 cm in greatest dimension. This is spongiform, has well- circumscribed margins, and is wider than tall orientation, has isoechoic echotexture, and lacks calcifications. No cervical lymphadenopathy is noted. US/US thyroid IMPRESSION: TIRADS: 1 (benign) Findings are consistent with multinodular goiter bilaterally. Recommendation: No further ultrasound follow-up is recommended. Impression dictated by: Sanjiv Reis M.D.08/09/2024 8:14 PM Dictation Location: [place] [address] Tech: Macy Perez Transcribed By: COLETTE 08/09/242013 Dictated By: Sanjiv Reis II, MD 08/09/242004 Signed By: 08/09/242013 [facility] Work Phone: 1(563) 896-837701-20-2025 Nuclear medicine Diagnostic study note [facility] [place] [address] [place] [address] Nuclear Medicine Report Signed Patient: Ofe Saravia MR#: [id number] : 1955 Acct:[id number] Age/Sex: 68 / F ADM Date: 5 Loc: [place] Room: Type: [facility] Attending Dr: Darian Barclay PA-C Copies to: Miguel Panda Jr, DO Darian Barclay PA-C~ Ordering Provider: Darian Barclay PA-C Date of Service: 08/08/24 MA/MA bone scan whole body: E04.1 WHOLE-BODY BONE SCAN: CLINICAL HISTORY: Lytic lesion seen on x-ray right shoulder. COMPARISON: CT chest, abdomen and pelvis performed earlier today. TECHNIQUE: Following the intravenous administration of 24.0 mCi of technetium 99m labeled MDP, delayed minified views of the entire skeleton were obtained. FINDINGS: There is normal distribution of radionucleotide within the axial and appendicular skeleton. Abnormal radiotracer activity is seen involving the right scapula consistent with the patient's known lytic lesion. Additional increased uptake is seen involving the right iliac bone also consistent with thepatient's known lytic lesion seen on the CT study. No additional areas of focalabnormal uptake is seen. Presumed degenerative changes are seen involving the shoulders, visualized left elbow,hips, knees, ankles and feet. There appears to be retained radiotracer within the right kidney whencompared to the left suggesting a degree of obstruction. MA/MA bone scan whole body IMPRESSION: ABNORMAL RADIOTRACER UPTAKE IS SEEN INVOLVING THE RIGHT SCAPULA AND RIGHT ILIAC BONE CONSISTENT WITH THE PATIENT'S KNOWN LYTIC LESIONS. RETAINED RADIOTRACER UPTAKE INVOLVING THE RIGHT KIDNEY WHEN COMPARED TO THE LEFTSUGGESTING A DEGREEOF OBSTRUCTION. NO OBSTRUCTING MASS OR STONE IS SEEN ON THECT STUDY. Impression dictated by: Angelic Shepherd Jr.OCari08/08/2024 12:39 PM Dictation Location: [place] [address] Transcribed By: [facility] 08/08/24 1239 Dictated By: Miguel Panda Jr, DO 08/08/24 1235 Signed By: 08/08/24 1239 [facility]01-20-2025 Radiology Diagnostic study note [facility] [place] [address] [place] [address] CT Scan Report Signed Patient: Ofe Saravia MR#: [id number] : 1955 Acct:[id number] Age/Sex: 68 / F ADM Date: 5 Loc: [place] Room: Type: [facility] Attending Dr: Darian Barclay PA-C Copies to: Darian Barclay PA-C~ Ordering Provider: Darian Barclay PA-C Date of Service: 08/08/24 CT/CT abdomen pelvis w con: M89.9 ([id number]) CT/CT chest w con: M89.9 CT CHEST, ABDOMEN AND PELVIS WITH INTRAVENOUS CONTRAST: CLINICAL HISTORY: Lytic bone lesion right shoulder. COMPARISON: None TECHNIQUE: TECHNIQUE: Spiral images were obtained through the chest, abdomen and pelvis following the administration of IV contrast. This CT exam was performed using one or more following dose reduction techniques: Automated exposure control, adjustment of the mA and/or kV according to patient size, or use of iterative reconstruction technique. FINDINGS: CT chest: Mediastinum:Heterogenous appearing thyroid gland. Thoracic aorta appears normalcaliber. Pulmonary trunk appears nondilated. No pleural effusion. Enlarged APwindow lymph node measuring 2 cm in short axis. The esophagus is grossly unremarkable. Lungs:Left upper lobe mass 3.4 x 2.9 x 3.1 cm. The mass abuts the major fissurewith adjacent satellite nodularity noted. Minimal lung scarring. No pneumothorax or pleural effusion. Soft tissues/Bones: Soft tissues demonstrate no acute findings. Lytic lesion involving the right scapula at the level of the glenoid with soft tissue component. No additional bony destructive lesion is seen. Degenerative changes. CT abdomen and pelvis: Organs:Hepatic steatosis. Gallbladder portal vein spleen and adrenal glands appear unremarkable. Focally dilated duct versus cyst involving the pancreatic neck measuring 12 mm in greatest axial dimension. Subcentimeter low attenuatinglesions are seen within the kidneys too small fracture characteriz ation. Abdominal aorta is normal in caliber.[ GI: Stomach is grossly unremarkable. Small bowel appears nondilated. No acute colonic abnormality is seen.[ Pelvis:[Urinary bladder is grossly unremarkable. Uterus is grossly unremarkable. No adnexal mass. 2.8 cm left ovarian cyst.] Peritoneum/Retroperitoneum:No free air or free fluid or lymphadenopathy.[ Abd wall/Bones:Abdominal wall demonstrates no acute findings. Osseous structures demonstrate degenerative change. A lytic lesion with soft tissue component is seen involving the right iliac bone measuring 7.2 x 4.4 cm in greatest axial dimensions. CT/CT chest w con IMPRESSION: 1. Left upper lobe mass 3.4 x 2.9 x 3.1 cm with adjacent satellite nodules. Malignancy with local metastatic disease is suspected. 2. Enlarged AP window lymph node suspicious for metastatic disease. 3. Lytic lesion with soft tissue components involving the right scapula and right iliac bone suggestive of bony metastatic disease. Impression dictated by: Miguel Panda Jr., D.OCari08/08/2024 10:23 AM Dictation Location: [place] [address] Transcribed By: [facility] 08/08/24 1023 Dictated By: Miguel Panda Jr, DO 08/08/24 1014 Signed By: 08/08/24 1023 [facility]01-15-2025 Telephone encounter Note* Telephone Encounter - Hanane García - 08/03/2024 2:37 PM EST Spoke to pt and scheduled biopsy for 08/10/24. [facility]01-15-2025 Miscellaneous Notes* Telephone Encounter - Hanane García - 08/03/2024 2:37 PM EST Spoke to pt and scheduled biopsy for 08/10/24. * Telephone Encounter - Duane Jimenez MD - 08/01/2024 4:47 PM EST RADIOLOGIST REQUEST / APPROVAL FORM STAFF RADIOLOGIST: Dr. Anglin PROCEDURE TO BE DONE UNDER: CT PROCEDURE REQUESTED: CORE Requested PROCEDURE: Approved TIME SLOT NEEDED: 1 Hour NOTES: RIGHT coracoid lesion with soft tissue component, no know primary thus far. SPECIAL LABS/ PROCESSING: n/a Pre-procedure labs: CBC: not needed INR: not needed COVID: not needed SIR Bleeding risk category for this procedure: low risk. Reference from [facility] Clothing Pattern Preparer: [email or web address] STAFF SIGNATURE: Duane Jimenez MD DATE: August 01, 2024 TIME: 4:47 PM * Telephone Encounter - Beatrice Green LPN - 08/01/2024 8:33 AM EST BX. COORDINATOR INFORMATION LAB RESULTS: INR (no units) Date Value 07/29/2024 1.1 APTT (sec) Date Value 07/29/2024 29.5 Platelet Count (k/uL) Date Value 07/29/2024 433 12/24/2009 228 Current Outpatient Medications Medication Sig traMADol (ULTRAM) 50 mg tablet Take 1 tablet by mouth every 6 hours as needed for pain for up to 7 days. for pain. FLUoxetine (PROZAC) 20 mg capsule Take 20 mg by mouth once daily. ezetimibe (ZETIA) 10 mg tablet Take 10 mg by mouth once daily. propranolol (INDERAL) 20 mg tablet as needed. vitamin b complex tab Take 1 tablet by mouth once daily. ASCORBIC ACID (VITAMIN C ORAL) Take by mouth. Magnesium Oxide-Mg Amino Acid Chelate 300 mg cap Take 300 mg by mouth daily at bedtime. CHOLECALCIFEROL (VITAMIN D3) 2,000 UNIT CAP Take one(1) tablet daily. No current facility-administered medications for this visit. ALLERGIES Allergen Reactions Seasonal Allergies Itching FILMS SENT TO WORKSTATION: GUIDELINES FOR HOLDING ANTI-PLATELET AND ANTI- COAGULATION THERAPY: none on file NURSE SIGNATURE: Beatrice Green LPN DATE: August 01, 2024 TIME: 8:33 AM * Telephone Encounter - Darian Barclay PA-C - 07/29/2024 4:07 PM EST STAFF-INITIATED RADIOLOGY BIOPSY / ASPIRATION / DRAIN REQUEST FORM Date: July 29, 2024 Time: 4:08 PM PATIENT CONTACT INFORMATION: Best way to reach patient cell SCHEDULING: VINNIE (Specific requests must be greater than 10 business days from the date of request) RADIOLOGY SERVICE GROUP (Abdominal / Thoracic / MSK / Neuro): Bone- Biopsy Site: Bone SPECIFICS OF THE REQUEST (Please be as detailed as possible): BIOPSY of MASS - BONE (Specify) right glenoid / Biopsy Type: Core Biopsy SPECIAL REQUESTS: TISSUE SAMPLE, LABWORK: Routine Evaluation MEDICAL DIAGNOSIS: expansile bone lesion right glenoid (i.e. Known primary cancer or suspected diagnosis) IMAGING STUDY AND DATE THAT IS THE BASIS OF THE REQUEST: MRI Date: 07/01/24 OSH (Note: Requests for random organ biopsies, specifically liver and kidney random biopsies do not need imaging.) IMAGING: [facility] (If the imaging was obtained outside the [facility] system, PLEASE upload for review prior to approval.) Note to all persons requesting biopsies: All biopsy requests will be scheduled as quickly as possible, based on the clinical urgency, availability of appointment times, the need to hold anti-thrombolytic therapy (aspirin and other blood thinners) and the patient s schedule, including the need for an available carrier driver. If a percutaneous biopsy or drainage is not felt to be safe or an alternative method for establishing a diagnosis is possible, this will be discussed directly with the requesting physician. documented in this encounterPromedica [facility]01-13-2025 Telephone encounter Note * Telephone Encounter - Duane Jimenez MD - 08/01/2024 4:47 PM EST RADIOLOGIST REQUEST / APPROVAL FORM STAFF RADIOLOGIST: Dr. Anglin PROCEDURE TO BE DONE UNDER: CT PROCEDURE REQUESTED: CORE Requested PROCEDURE: Approved TIME SLOT NEEDED: 1 Hour NOTES: RIGHT coracoid lesion with soft tissue component, no know primary thus far. SPECIAL LABS/ PROCESSING: n/a Pre-procedure labs: CBC: not needed INR: not needed COVID: not needed SIR Bleeding risk category for this procedure: low risk. Reference from [facility] Clothing Pattern Preparer: [email or web address] STAFF SIGNATURE: Duane Jimenez MD DATE: August 01, 2024 TIME: 4:47 PM [facility] Work Phone: 1(599) 675-744101-13-2025 Telephone encounter Note* Telephone Encounter - Beatrice Green LPN - 08/01/2024 8:33 AM EST BX. COORDINATOR INFORMATION LAB RESULTS: INR (no units) Date Value 07/29/2024 1.1 APTT (sec) Date Value 07/29/2024 29.5 Platelet Count (k/uL) Date Value 07/29/2024 433 12/24/2009 228 Current Outpatient Medications Medication Sig traMADol (ULTRAM) 50 mg tablet Take 1 tablet by mouth every 6 hours as needed for pain for up to 7 days. for pain. FLUoxetine (PROZAC) 20 mg capsule Take 20 mg by mouth once daily. ezetimibe (ZETIA) 10 mg tablet Take 10 mg by mouth once daily. propranolol (INDERAL) 20 mg tablet as needed. vitamin b complex tab Take 1 tablet by mouth once daily. ASCORBIC ACID (VITAMIN C ORAL) Take by mouth. Magnesium Oxide-Mg Amino Acid Chelate 300 mg cap Take 300 mg by mouth daily at bedtime. CHOLECALCIFEROL (VITAMIN D3) 2,000 UNIT CAP Take one(1) tablet daily. No current facility-administered medications for this visit. ALLERGIES Allergen Reactions Seasonal Allergies Itching FILMS SENT TO WORKSTATION: GUIDELINES FOR HOLDING ANTI-PLATELET AND ANTI- COAGULATION THERAPY: none on file NURSE SIGNATURE: Beatrice Green LPN DATE: August 01, 2024 TIME: 8:33 AM [facility]01-10-2025 Telephone encounter Note* Telephone Encounter - Darian Barclay PA-C - 07/29/2024 4:07 PM EST STAFF-INITIATED RADIOLOGY BIOPSY / ASPIRATION / DRAIN REQUEST FORM Date: July 29, 2024 Time: 4:08 PM PATIENT CONTACT INFORMATION: Best way to reach patient cell SCHEDULING: VINNIE (Specific requests must be greater than 10 business days from the date of request) RADIOLOGY SERVICE GROUP (Abdominal / Thoracic / MSK / Neuro): Bone- Biopsy Site: Bone SPECIFICS OF THE REQUEST (Please be as detailed as possible): BIOPSY of MASS - BONE (Specify) right glenoid / Biopsy Type: Core Biopsy SPECIAL REQUESTS: TISSUE SAMPLE, LABWORK: Routine Evaluation MEDICAL DIAGNOSIS: expansile bone lesion right glenoid (i.e. Known primary cancer or suspected diagnosis) IMAGING STUDY AND DATE THAT IS THE BASIS OF THE REQUEST: MRI Date: 07/01/24 OSH (Note: Requests for random organ biopsies, specifically liver and kidney random biopsies do not need imaging.) IMAGING: [facility] (If the imaging was obtained outside the [facility] system, PLEASE upload for review prior to approval.) Note to all persons requesting biopsies: All biopsy requests will be scheduled as quickly as possible, based on the clinical urgency, availability of appointment times, the need to hold anti-thrombolytic therapy (aspirin and other blood thinners) and the patient s schedule, including the need for an available carrier driver. If a percutaneous biopsy or drainage is not felt to be safe or an alternative method for establishing a diagnosis is possible, this will be discussed directly with the requesting physician. [facility]01-10-2025 History of Present illness Narrative* Katina Rehman RT(Susie) - 07/29/2024 3:30 PM EST Radiology Service Progress Note PATIENT NAME: Ofe Saravia DATE OF SERVICE: July 29, 2024 TIME: 11:57 AM PATIENT IDENTITY VERIFICATION COMPLETED USING TWO (2) IDENTIFIERS: Name and Date of confirmedby patient verbally. FALL SCREENING: Has the patient had 2 falls in the last year or 1 fall with injury or currently using an Ambulatory Assistive Device (Walker, Cane, Wheelchair, Crutches, etc.)? No PATIENT GENDER DATA: Female. status: : No status: NO. PATIENT RELEVANT IMPLANT DATA REVIEWED: Not Applicable PATIENT PRESENTS WITH AN IMPLANTABLE OR ATTACHED GEAR CODING MACHINE OPERATOR: No RADIOLOGY DEPARTMENT: General X-ray: Exam(s) Completed: Pelvis X-Ray: Pelvis with Hip Right PERIPHERAL IV DATA: Not applicable SIGNED BY: RT Chaim(R) July 29, 2024 11:57 AM documented in this encounterPromedica Bay [facility]01-10-[facility] Instructions* Patient Instructions* Darian Barclay PA-C - 07/29/2024 10:45 AM EST XR right hip suite A 21 Lab work A 15 - 1st floor CT CAP Bone scan documented in this encounterPromedica [facility]01-10-[facility] History of Present illness Narrative* Darian Barclay PA-C - 07/29/2024 9:45 AM EST Orthopaedic Oncology New Patient Evaluation Chief Complaint: Bone lesion right shoulder Referring Physician: Paluina Jacobson CNP History of Present Illness: Ofe Saravia is a 68 year old year old female who presents for evaluation of the above chief complaint. She states she has been having pain in the right shoulder which has been significant since May 2024. She denies any injuries. She is right-hand dominant. She saw her primary care provider who did x-rays and ordered an MRI which showed a expansile lesion in theglenoid and coracoid process of the right shoulder. She was sent to the [facility] for further workup. She had up seeing Paulina Jacobson CNP, who then referred patient to our office. She states she has been having chronic pain, sharp pains with certain motion limited motion and swelling. Shedenies any numbness or tingling to lower extremity. She has pain with any use of the right shoulder. She denies any weakness. She has been taking ibuprofen and Tylenol with no help. In addition to the right shoulder pain, she started having right hip pain about a couple weeks ago and notes pain on the lateral aspect of the hip. She notes pain with walking and notes limited motion of the hip. She denies any numbness or tingling. She denies any swelling. She denies any injuries and also denies any instability. Has history of thyroid nodules for years- had BX in 2018 at [facility]. These have been monitored every couple years and she mentions that in January of this year, she had an ultrasound of the thyroid, mentioning that the results showed enlargement. She was told by the ordering providers office that they were going to have the ultrasound reviewed but never heard back from ordering providers office. She does feel like the nodules have been getting enlarged and also feels periodic swelling in the right side of her neck in the past couple months. She also has been complaining of a cough for about 2 months. She has been having some blurred vision on and off in the past couple weeks. She does feel dizzy and has had a couple episodes of night sweats. She also has a limited appetite and has had chills. 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 Her health screening includes: Mammogram- 2 years ago. Does not perform monthly self breast exams Cologuard done recently- negative Review of Systems: Review of systems is positive for chills, night sweats, blurry vision, cough, dizziness and loss of appetite. She denies any weight change, denies any change in bowel or bladder function. Other complete ROS is questioned and negative. 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 ezetimibe (ZETIA) 10 mg tablet Take 10 mg by mouth once daily. propranolol (INDERAL) 20 mg tablet as needed. vitamin b complex tab Take 1 tablet by mouth once daily. ASCORBIC ACID (VITAMIN C ORAL) Take by mouth. Magnesium Oxide-Mg Amino Acid Chelate 300 mg cap Take 300 mg by mouth daily at bedtime. CHOLECALCIFEROL (VITAMIN D3) 2,000 UNIT CAP Take one(1) tablet daily. No current facility-administered medications on file prior to visit. FAMILY HISTORY Problem Relation Age of Onset [...] date: 07/20/1981 Quit date: 07/20/1999 Years since quittin.0 Smokeless tobacco: Never Vaping Use Vaping status: Never Used Substance Use Topics Alcohol use: No Drug use: No Comment: denies tx for drug/alcohol abuse in the past. Physical Examination: LMP 05/24/2007 General: alert, oriented, no acute distress Skin: no visible skin lesions HEENT: normocephalic, extraocular movements intact, mucous membranes moist/intact Breast: examination preformed with patient consent. No masses are palpable. No nipple discharge or inversion Neck: right sided cervical lymphadenopathy Cardiovascular: pulse regular, no lower extremity edema Pulmonary: normal respiratory effort and chest wall excursion Abdomen: soft, non-tender, non-distended RUE: Swelling right shoulder TTP anterior shoulder The skin changes are noted. Pain with passive range of motion up to 45 degrees and also pain with active range of motion which is limited as a result of pain. Sensation intact to light touch + 2 radial pulse Normal gait Right hip : Tenderness to palpation over the greater trochanteric bursa. No swelling is noted. Pain with straight leg raise to the lateral aspect of her hip. Hip flexion 110 degrees, external rotation 40, internal rotation 20 with pain 5/5 strength abductoin and FF Results Reviewed: Radiographic evaluation: MRI of the right shoulder from 07/01/2024 was reviewed. The exam was done at [facility]. Images show expansile lesion in the anterosuperior aspect of the glenoid extending into the coracoid process. This is extending into the soft tissue and associated with a displaced pathologic fracture ofbase of the coracoid process. X-ray right shoulder completed today lucency in the glenoid Impression: (M25.551) Pain in right hip (primary encounter diagnosis) (M89.9) Lytic bone lesions on xray (E04.1) Thyroid nodule (E04.1) Thyroid nodule greater than or equal to 1 cm in diameter incidentally noted on imaging study We discussed today that the right shoulder expansile bone lesion is concerning for malignancy. We discussed that this could be metastatic, originating in the blood, or primary bone sarcoma. The primary concern would be metastatic disease. We would like to further evaluate with additional testing todetermine this Plan: A metastatic workup needs to be started, to include labs, bone scan, triple staging CT scan, and lab and biopsy. -We had a long discussion on the findings of x-rays and MRI. There is an expansile lytic lesion in the right glenoid which is the source of her pain and does raise our concern for malignancy. Would like to perform a staging studies which include CT chest abdomen pelvis, whole-body bone scan, labs which include CBC, CRP, sed rate, CMP, PT, PTT, SPEP, UPEP, vitamin D and alk phos. -I would also like to obtain a right hip x-ray due to the new pain that she is having. -We also discussed obtaining a bone biopsy of this bone lesion. I will place a order for this and the biopsy team will reach out to schedule this - will reach out after results to discuss and also help with coordinating care with medical oncology and other specialists, as needed - thyroid nodules- May recommend MRI thyroid, but would like to evaluate the scans first Darian Barclay PA-C documented in this encounterPromedica Bay [facility]01-10-2025 NoteMem[facility]12-19-2024 History of Present illness Narrative* Paulina Jacobson MD - 07/07/2024 3:00 PM EST Images from the original note were not included. Ofe Saravia is a patient of Asya Clements Jr, DO. CHIEF COMPLAINT: Ofe Saravia is a 68 year old female who presents today for new evaluation. HISTORY OF PRESENT ILLNESS: PAIN EVALUATION 07/07/2024 1110 Pain Level: 7 Pain Location: Shoulder-Right Description: Dull;Pulsating;Radiating;Sharp;Stiffness Duration Amount of Time: 2 Duration Units: Months Frequency: Continuous Intervention/Comfort measure: Medication;Cold;Heat Comments: Pt is here for right shoulder pain. She reports 2 months she ran into the door. She reports she had a history of a stroke and brain surgery 2008. Pain with movement. She takes Advil, Tylenol. Reviewed 07/01/24 MRI results (see scanned docs) right-hand dominant. Work Related: No Location of pain: lateral and anterior Was there an injury that started this? Yes, ran into a door and started having pain 1mo later Seen by PCP in [place] who obtained an MRI 07/01/24 MRI Any numbness or tingling? No Any instability ? No She notes that this problem exhibits aggravating factors of Overhead activities, Reaching backwards, and Sleeping on the shoulder. She notes that this problem exhibits alleviating factors of NSAIDs. PREVIOUS TREATMENT HISTORY: Prior Treatments: Advil, Mobic Prior Surgery in location of pain: No Prior Fracture/Injury in location of pain: No PHYSICAL EXAMINATION: RIGHT SHOULDER EXAM Palpation - Tenderness: No. Sensation - normal to light touch ROM - Right shoulder: Abduction: limited at less than 50 degrees Flexion: limited at less than 45 degrees ER: 30 IR: belt line Active is not equal to Passive ROM. Painful arc: yes Left shoulder: Abduction: normal at 150-180 degrees Flexion: normal at 125-150 degrees ER: 30 IR: T12 Active is equal to Passive ROM. Painful arc: no Scapula exam: scapular dyskinesia noted on the right Strength Abduction: 3/5 with significant pain Flexion: 3/5 with significant pain Glory Test / Empty Can Test (supraspinatus): 3/5 with significant pain Resisted lateral rotation test (infraspinatus): normal examination with no pain or weakness elicited Belly press test (subscapualris): normal examination with no pain or weakness elicited IMAGING: Final results and radiologist's interpretation, available in the [facility] health record. Images were reviewed with the patient/family members in the office today. My personal interpretation of the performed imaging: AP, axillary, Grashey, and scapular-Y views of the patient's right shoulder were performed today and viewed by me. The AC joint is mildly arthritic and the glenohumeral joint space is mildly arthritic with cystic changes of the greater tuberosity. Acromiohumeral interval is within normal limits. The coracoclavicular distance is normal. Type II acromion. LABS: No results found for: HBA1C Creatinine Date Value Ref Range Status 12/24/2009 0.52 (L) 0.70 - 1.40 mg/dL Final 12/12/2009 0.55 (L) 0.70 - 1.40 mg/dL Final CLINICAL IMPRESSION / ASSESSMENT: (M25.511, G89.29) Chronic right shoulder pain (primary encounter diagnosis) (M67.911) Tendinopathy of right rotator cuff RECOMMENDATION / PLAN: 68yo F w/ a hx of stroke presenting with 2 months of shoulder pain. Unclear if it occurred after she ran into a doorway with that arm. Limited ROM and significant pain. MRI obtained by non-[facility] PCP concerning for a mass, results brought today but no imaging. Recommend pt return with disc of MRI imaging, which we will upload for review. Plan for follow up 2-3 weeks to discuss next steps. Follow up: three weeks Films prior to visit: No additional imaging warranted. Pertinent previous records and images reviewed. Verbal health education was given to patient. Patient verbalizes understanding and agrees with the treatment plan as detailed above. Paulina Jacobson MD [facility] Sports and Exercise Medicine Medical Decision Making documented in this encounterPromedica Bay [facility]12-19-2024 Instructions* Patient Instructions* Paulina Jacobson MD - 07/07/2024 3:00 PM EST Images from the original note were not included. Shoulder Impingement/Rotator Cuff Tendinopathy One of the most common physical complaints is shoulder pain. Your shoulder is made up of several joints combined with tendons and muscles that allow a great range of motion in your arm. Because so many different structures make up the shoulder, it is vulnerable to many different problems. The rotator cuff is a frequent source of pain in the shoulder. This illustration of the shoulder highlights the major components of the joint. Anatomy Your shoulder is made up of three bones: your upper arm bone (humerus), your shoulder blade (scapula), and your collarbone (clavicle). Your arm is kept in your shoulder socket by your rotator cuff. These muscles and tendons form a covering around the head of your upper arm bone and attach it to your shoulder blade. There is a lubricating sac called a bursa between the rotator cuff and the bone on top of your shoulder (acromion). The bursa allows the rotator cuff tendons to glide freely when you move your arm. Description The rotator cuff is a common source of pain in the shoulder. Pain can be the result of: Tendinitis. The rotator cuff tendons can be irritated or damaged. Bursitis. The bursa can become inflamed and swell with more fluid causing pain. Impingement. When you raise your arm to shoulder height, the space between the acromion and rotatorcuff narrows. The acromion can rub against (or impinge on) the tendon and the bursa, causing irritation and pain. Cause Rotator cuff pain is common in both young athletes and middle-aged people. Young athletes who use their arms overhead for swimming, baseball, and tennis are particularly vulnerable. Those who do repetitive lifting or overhead activities using the arm, such as paper hanging, construction, or painting are also susceptible. Pain may also develop as the result of a minor injury. Sometimes, it occurs with no apparent cause. Symptoms Rotator cuff pain commonly causes local swelling and tenderness in the front of the shoulder. You may have pain and stiffness when you lift your arm. There may also be pain when the arm is lowered from an elevated position. Beginning symptoms may be mild. Patients frequently do not seek treatment at an early stage. These symptoms may include: Minor pain that is present both with activity and at rest Pain radiating from the front of the shoulder to the side of the arm Sudden pain with lifting and reaching movements Athletes in overhead sports may have pain when throwing or serving a tennis ball As the problem progresses, the symptoms increase: Pain at night Loss of strength and motion Difficulty doing activities that place the arm behind the back, such as buttoning or zippering If the pain comes on suddenly, the shoulder may be severely tender. All movement may be limited andpainful. Doctor Examination Medical History and Physical Examination After discussing your symptoms and medical history, your doctor will examine your shoulder. He or she will check to see whether it is tender in any area or whether there is a deformity. To measure the range of motion of your shoulder, your doctor will have you move your arm in several different directions. He or she will also test your arm strength. Your doctor will check for other problems with your shoulder joint. He or she may also examine yourneck to make sure that the pain is not coming from a pinched nerve, and to rule out other conditions, such as arthritis. Imaging Tests Other tests which may help your doctor confirm your diagnosis include: X-rays. Becauses x-rays do not show the soft tissues of your shoulder like the rotator cuff, plain x-rays of a shoulder with rotator cuff pain are usually normal or may show a small bone spur. A special x-ray view, called an outlet view, sometimes will show a small bone spur on the front edge of the acromion. Magnetic resonance imaging (MRI) and ultrasound. These studies can create better images of soft tissues like the rotator cuff tendons. This may be considered if your symptoms are severe or if you arenot improving with medications and physical therapy. They can show fluid or inflammation in the bursa and rotator cuff. In some cases, partial tearing of the rotator cuff will be seen. Treatment The goal of treatment is to reduce pain and restore function. In planning your treatment, your doctor will consider your age, activity level, and general health. Nonsurgical Treatment In most cases, initial treatment is nonsurgical. Although nonsurgical treatment may take several weeks to months, many patients experience a gradual improvement and return to function. Rest. Your doctor may suggest rest and activity modification, such as avoiding overhead activities. Non-steroidal anti-inflammatory medicines. Drugs like ibuprofen and naproxen reduce pain and swelling. Physical therapy. A physical therapist will initially focus on restoring normal motion to your shoulder. Stretching exercises to improve range of motion are very helpful. If you have difficulty reaching behind your back, you may have developed tightness of the posterior capsule of the shoulder (capsule refers to the inner lining of the shoulder and posterior refers to the back of the shoulder). Specific stretching of the posterior capsule can be very effective in relieving pain in the shoulder. Once your pain is improving, your therapist can start you on a strengthening program for the rotator cuff muscles. Steroid injection. If rest, medications, and physical therapy do not relieve your pain, an injection of a local anesthetic and a cortisone preparation may be helpful. Cortisone is a very effective anti-inflammatory medicine. Injecting it into the bursa beneath the acromion can relieve pain. Surgical Treatment When nonsurgical treatment does not relieve pain, your doctor may recommend surgery. The goal of surgery is to create more space for the rotator cuff. To do this, your orthopedic surgeon will remove the inflamed portion of the bursa. He or she may also perform an anterior acromioplasty, in which part of the acromion is removed. This is also known as a subacromial decompression. Adapted from [employer] [place] [employer]. documented in this encounterPromedica Bay Park [facility]12-19-2024 NoteMem[facility]12-19-2024 NoteMem[facility]12-19-2024 History of Present illness Narrative* Ellen Woods, RT(R) - 07/07/2024 2:33 PM EST Radiology Service Progress Note PATIENT NAME: Ofe Saravia DATE OF SERVICE: July 07, 2024 TIME: 2:33 PM PATIENT IDENTITY VERIFICATION COMPLETED USING TWO (2) IDENTIFIERS: Name and Date of confirmedby patient verbally. FALL SCREENING: Has the patient had 2 falls in the last year or 1 fall with injury or currently using an Ambulatory Assistive Device (Walker, Cane, Wheelchair, Crutches, etc.)? No PATIENT GENDER DATA: Female. status: : No status: NO. 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 Calcium-fortified means that calcium has been [...] the table and allow each person to addtheir own salt to taste. Use vegetable protein, such as beans, textured vegetable protein (TVP), or tofu, instead of meat inpasta, casseroles, and soups. Meal planning Eat less salt, if told by your dietitian. To do this: ?Avoid eating processed or pre-made food. ?Avoid eating fast food. Eat less animal protein, including cheese, meat, poultry, or fish, if told by your dietitian. To dothis: ?Limit the number of times you have meat, poultry, fish, or cheese each week. Eat a diet free of meat at least 2 days a week. ?Eat only one serving each day of meat, poultry, fish, or seafood. ?When you prepare animal proteins, cut pieces into small portion sizes. For most meat and fish, oneserving is about the size of the palm [...] ?Spinach (cooked), rhubarb, beets, sweet potatoes, and [place] chard. ?Peanuts. ?Potato chips, z[place]an fries, and baked potatoes with skin on. ?Nuts and nut products. ?Chocolate. If you regularly take a diuretic medicine, make sure to eat at least 1 or 2 servings of fruits or vegetables that are high in potassium each day. These include: ?Avocado. ?Banana. ?[place], prune, carrot, or tomato juice. ?Baked potato. [...] magnesium, fish oil, or vitamin B6. Take lxim-yoh-yezqbhf and prescription medicines only as told by [...] based on the type of kidney stones youhave and your overall health. Fruits Grapefruit. The item listed above may not be a complete list of foods and beverages you should avoid. Contact adietitian for more information. Summary Kidney stones are [...] provider. Document Revised: 10/16/2022 Document Reviewed: 10/16/2022 [employer] Patient Education 2023 [employer]. Follow Up Care 06/08/2024 14:17:58 With:Cedric FLOYD, BUDDY Garcia, [facility] Address: When: Unknown [facility] 12-05-2024 NotePatient Education Nephrology Dietary Guidelines to Help Prevent [...] for following this plan? Reading food labels ??? Choose foods with no salt added or low-salt labels. Limit your salt (sodium) intake to lessthan 1,500 mg a day. ??? Choose foods with calcium for each meal and snack. Try to eat about 300 mg of calcium at each meal. Foods that contain 200?500 mg of calcium a serving include: ? 8 oz (237 mL) of milk, wkbpert-fvqulhkalpaq-jnmly milk, and calcium- fortifiedfruit juice. Calcium-fortified means that calcium has been [...] much calcium is recommended for you. Shopping ??? Buy plenty of fresh fruits and vegetables. Most people do not need to avoid fruits and vegetables, even if these foods contain nutrients that may contribute to kidney stones. ??? When shopping for convenience foods, choose: ? Whole pieces of fruit. ? Pre-made salads with dressing on the side. ? Low-fat fruit and yogurt smoothies. ??? Avoid buying frozen meals or prepared deli foods. These can be high in sodium. ??? Look for foods with live cultures, such as yogurt and kefir. ??? Choose high-fiber grains, such as whole-wheat breads, oat bran, and wheat cereals. Cooking ??? Do not add salt to food when cooking. Place a salt shaker on the table and allow each person toadd their own salt to taste. ??? Use vegetable protein, such as beans, textured vegetable protein (TVP), or tofu, instead of meat in pasta, casseroles, and soups. Meal planning ??? Eat less salt, if told by your dietitian. To do this: ? Avoid eating processed or pre-made food. ? Avoid eating fast food. ??? Eat less animal protein, including cheese, meat, [...] size of the palm of your hand. ??? Eat at least five servings of fresh fruits and vegetables each day. To do this: ? Keep fruits and vegetables on hand for snacks. ? Eat one piece of fruit or a handful of berries with breakfast. ? Have a salad and fruit at lunch. ? Have two kinds of vegetables at dinner. ??? You may be told to limit foods that are high in a substance called oxalate. These include: ? Spinach (cooked), rhubarb, beets, sweet potatoes, and [place] Islander chard. ? Peanuts. ? Potato chips, zimbabwean fries, and baked potatoes with skin on. ? Nuts and nut products. ? Chocolate. ??? If you regularly take a diuretic medicine, make sure to eat at least 1 or 2 servings of fruits or vegetables that are high in potassium each day. These include: ? Avocado. ? Banana. ? [place], prune, carrot, or tomato juice. ? Baked potato. ? Cabbage. ? Beans and split peas. Lifestyle ??? Drink enough fluid to keep your urine pale yellow. This is the most important thing you can do.Spread your fluid intake throughout the day. ??? If you drink alcohol: ? Limit how [...] oz glass of hard liquor (44 mL). ??? Lose weight if told by your health care provider. Work with your dietitian to find an eating plan and weight loss strategies that work best for you. General information ??? Talk to your health care provider and [...] as magnesium, fish oil, or vitamin B6. ??? Take uwoe-ose-msprwum and prescription medicines only as told by your health (more content not included)...[facility]11-19-2024 Hospital Discharge instructions Additional Instructions Take Tylenol [...] stool softeners. You can buy AZO (phenazopyridine) hcli-bzj-ryihvtu and use as needed for burning with [...] any legal documents for the next 24-hours also.[facility] Work Phone: 1(357) 807-308511-08-2024 History of Present illness Narrative* Елена Griffin MD - 05/27/2024 10:00 AM EST Referred by Dr. Asya Clements for New Patient Visit (Abnormal EKG ) History Of Present Illness: Ofe Saravia is a 68 y.o. 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/2009 Coordination impairment BRAIN SX - 2008 Degenerative disc disease, cervical 02/08/2010 Degenerative disc disease, lumbar 01/30/2014 Depression ([facility]) 02/09/2008 Dizziness 08/11/2018 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 H/O section H/O eye surgery right; 2006, 2007 Hemangioma 08/09/2009 History of medical problems thyroid Lack of coordination 01/25/2008 Migraine ([facility]) 05/26/2017 Neck pain 08/11/2018 Other disorders of facial nerve 02/09/2008 Panic attacks ([facility]) Sleep disturbance 01/05/2013 Snoring 07/16/2015 Stroke ([facility]) 05/26/2017 Tension type headache 08/11/2018 Trigeminal neuralgia ([facility]) 10/20/2014 Past Surgical History: Procedure Laterality Date [...] includes Brain surgery (2008); Facial cosmetic surgery (2009);Eye surgery; and Ankle surgery (2017). Social History: [...] responses and responses, with left facial droop andleft hemiparesis LUNGS: Clear to auscultation bilaterally; normal [...] you for allowing me to participate in Ofe's care, please do not hesitate to call if furtherquestions arise, Sincerely, Елена Griffin MD [facility] Provider Attestation - Scribe documentation All medical record entries made by the Scribe were at my direction and personally dictated by me. Ihave reviewed the chart and agree that the record accurately reflects my personal performance of the history, physical exam, discussion and plan. [facility] Work Phone: 1(162) 354-524311-08-2024 Instructions* Patient Instructions* Izzy Stevens LPN - 05/27/2024 10:00 AM EST Please bring all medicines, vitamins, and herbal supplements with you when you come to the office. Prescriptions will not be filled unless you are compliant with your follow up appointments or have a follow up appointment scheduled as per instruction of your physician. Refills should be requested at the time of your visit. Ofe Saravia is clear for surgery from a cardiac standpoint Follow up ordered as needed only documented in this [facility] Work Phone: 1(384) 887-287010-29-2024 Hospital Discharge instructions Patient Education 05/17/2024 13:44:18 [...] Follow these instructions at home: Medicines Take xjpe-lkx-hdfmcoo and prescription medicines only as told by [...] pain is severe. ?Do not take other xduk-ckf-dhnekky pain medicines in addition to prescription pain medicine unlesstold by your health care provider. ?Keep your medicine in a safe place, away from children or anyone who could use it in a way that itwas not prescribed. ?Ask your health care provider [...] to keep your urine pale yellow. Take jngw-skf-ussywcg or prescription medicines. Eat foods that are [...] provider. Document Revised: 01/28/2023 Document Reviewed: 01/28/2023 [employer] Patient Education 2023 [employer]. Follow Up Care 05/16/2024 13:01:03 With:ANN FORTE PA-C, URL Address: [address] [place] [address] Business (1) When: only if needed [facility] 10-29-2024 NotePatient Education Orthopedics Acute Pain, Adult Acute pain [...] these instructions at home: Medicines ??? Take cahc-fjy-hyaheoo and prescription medicines only as told by your health care provider. ??? Take the lowest dose of medicine for the shortest amount of time needed to relieve the pain. ??? If you are taking prescription pain medicine: ? Do not stop taking the medicine suddenly. Talk to your health care provider about how and when tostop taking prescription medicine. ? Do not take more pills than told by your health care provider even if your pain is severe. ? Do not take other kndw-unk-gcwmhwk pain medicines in addition to prescription pain [...] told by your health care provider. Use theheat source that your health care provider recommends, [...] keep your urine pale yellow. ??? Take rkqz-cee-rmiskrt or prescription medicines. ??? Eat foods that [...] provider. Document Revised: 01/28/2023 Document Reviewed: 01/28/2023 [employer] Patient Education ? 2023 [employer].[facility] 05-16-2024 History of Present illness Narrative* THAD Rosa - 05/16/2024 3:40 PM EDT Subjective Ofe Saravia is a 68 y.o. 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 Coordination impairment BRAIN SX - 2008 Degenerative disc disease, cervical 02/08/2010 Degenerative disc disease, lumbar 01/30/2014 Depression (CMS/HCC) 02/09/2008 Dizziness 08/11/2018 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 Memory: MOCA 23/30. Speech is normal. Languageis fluent with no aphasia. Attention and concentration are normal. Fund of knowledge is appropriatefor level of education. 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 LUE Strength deltoid, biceps, triceps, wrist extensors, wrist extensors, wrist flexor, director of manufacturing operations strength 5/5. RLE Strength illopsoas, quadriceps, tibialis [...] diplopia and facial weakness from above. She previouslyfollowed with Dr. Monterroso at [facility] and neuro ophthalmology. Hypnopompic hallucination History [...] her history of stroke and AVM, EEG wasobtained and was normal. MOCA was 23/30 with [...] has tried botox in the past at [facility]. She weaned gabapentin and is [...] when focused and attentive, near return to cognitivebaseline estimates aside from some mild struggles with [...] cerebellar hemisphere. There was increased T2 and FLAIRsignal intensity within the medulla anteriorly. Brain MRI with and without contrast 02/2021: Revealed approximately 6mm area of signal alteration inthe posterior aspects of the pontomedullary junction the [...] new or worsening symptoms documented in this encounterJohn [facility]. [facility] CenterUrgeqmrdms04-24-[facility]36 Hospital Discharge instructions Patient Education 04/13/2024 11:44:08 Kidney Stones Kidney Stones Kidney stones are solid, rock-like deposits that form inside of the kidneys. The kidneys are a pairof organs that make urine. A kidney stone [...] the ribs (flank pain). Pain usually spreads (radiates)to the groin. Needing to urinate often or [...] Follow these instructions at home: Medicines Take bkkh-xpu-xprswpn and prescription medicines only as told by [...] provider. Document Revised: 10/15/2022 Document Reviewed: 10/15/2022 [employer] Patient Education 2023 [employer]. Follow Up Care 04/05/2024 10:57:54 With:Cedric FLOYD, CORNELIUS GarciaL, URO Address: When: Unknown Comments:iJm menjivar [facility] 09-25-2024 NotePatient Education Urology Kidney Stones Kidney stones are solid, rock-like deposits that form inside of the kidneys. The kidneys are a pairof organs that make urine. A kidney stone [...] some cases, you may be given fluids throughan IV and may need to be monitored [...] these instructions at home: Medicines ? Take qzga-bad-avouaht and prescription medicines only as told by [...] stone may help prevent you from getting kidneystones in the future. ? Keep all follow-up visits. You may need follow-up X-rays or ultrasounds to make sure that your stone has passed. How is this prevented? To prevent another kidney stone: ? Drink enough fluid to keep your urine pale yellow. This is the best way to prevent kidney stones. ? Eat a healthy diet. Follow r (more content not included)...[facility]09-16-2024 Evaluation + Plan note Future Scheduled Tests Radiology* XR Abdomen 1 View 04/04/24 * US Renal 04/04/24 [facility] 09-15-2024 History of Present illness Narrative* Elizabeth Balbuena MD - 04/03/2024 6:09 PM EDT [facility] [place] [facility] Name: Ofe Saravia Date of Service: 03/30/24 Patient ID: [...] orbicularis oculi, zygomaticus major, levator labii and unit tender Redemonstrated severe lateral pull of upper lip [...] (2u, 2 sites) = 4 U Left unit tender (3u, 2 site) = 6 U Left procerus (3u, 1 site) = 3 U Left mentalis (3u, 2 sites) 6 U Left platysma (3u, 14 x sites) = 42 units Left TAMRA (3u, 1 site) = 3 U Total: 81 units used (19 Units of botox discarded) Assessment: 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 Here today forbotox injections and procedure was tolerated well. Plan: - Myectomy discussed, but patient is not interested at this time. - RTC in 3-4 months for repeat botox injections with either or Dr. José Balbuena MD [facility] [place] [facility] ADDENDUM: I performed the procedure and discussed the patient's management with the fellow. I reviewed and edited the note and agree with the documented findings and treatment plan. Elizabeth Balbuena MD [facility] Team Leader, Facial Plastic and Microvascular Surgery UNIVERSAL PROTOCOL [...] applicable. Elizabeth Balbuena MD documented in this encounterPromedica [facility]09-[facility] Nurse Note* Paulina Jerez RN - 03/30/2024 11:30 AM EDT Tobacco Use: 1.5 packs/day, for 18 years. Quit 07/20/1999. Types: Cigarettes Was smoking cessation packet given? N/A - Patient is a non-smoker or quit >1 year ago. Was a referral initiated?N/A Patient is a non-smoker. Paulina Jerez RN March 30, 2024 11:31 AM [facility]09-11-2024 Nurse Note* Paulina Jerez RN - 03/30/2024 11:30 AM EDT Tobacco Use: 1.5 packs/day, for 18 years. Quit 07/20/1999. Types: Cigarettes Was smoking cessation packet given? N/A - Patient is a non-smoker or quit >1 year ago. Was a referral initiated?N/A Patient is a non-smoker. Paulina Jerez RN March 30, 2024 11:31 AM documented in this encounterPromedica [facility]08-29-2024 Hospital Discharge instructions Patient Education 03/17/2024 13:15:00 Kidney Stones, Buff-hf-Jnik Kidney Stones Kidney stones are rock-like masses [...] Follow these instructions at home: Medicines Take yzud-yji-uskmfzv and prescription medicines only as told by [...] provider. Document Revised: 03/10/2022 Document Reviewed: 03/10/2022 [employer] Patient Education 2022 [employer]. Follow Up Care 03/17/2024 09:52:31 With:Cedric FLOYD, BUDDY Garcia, URO Address: [address] [place] [address] [phone] When: Unknown [facility] 08-29-2024 NotePatient Education Urology Kidney Stones Kidney stones are [...] the ribs (flank pain). Pain usually spreads (radiates)to the groin. ? Needing to pee often [...] these instructions at home: Medicines ? Take waxz-pzg-sryufcx and prescription medicines only as told by [...] provider. Document Revised: 03/10/2022 Document Reviewed: 03/10/2022 [employer] Patient Education ? 2022 [employer].[facility] 06-24-2023 Hospital Discharge instructions Patient Education [...] about 300 mg of calcium at each meal.Foods that contain 200 500 mg of calcium a serving include: ?8 oz (237 mL) of milk, vnitmiu-gcengltsksmu-wbsss milk, and calcium- fortifiedfruit juice. Calcium-fortified means that calcium has been [...] the table and allow each person to addtheir own salt to taste. Use vegetable protein, such as beans, textured vegetable protein (TVP), or tofu, instead of meat inpasta, casseroles, and soups. Meal planning Eat less salt, if told by your dietitian. To do this: ?Avoid eating processed or pre-made food. ?Avoid eating fast food. Eat less animal protein, including cheese, meat, poultry, or fish, if told by your dietitian. To dothis: ?Limit the number of times you have meat, poultry, fish, or cheese each week. Eat a diet free of meat at least 2 days a week. ?Eat only one serving each day of meat, poultry, fish, or seafood. ?When you prepare animal proteins, cut pieces into small portion sizes. For most meat and fish, oneserving is about the size of the palm [...] ?Spinach (cooked), rhubarb, beets, sweet potatoes, and [place] chard. ?Peanuts. ?Potato chips, zimbabwean fries, and baked potatoes with skin on. ?Nuts and nut products. ?Chocolate. If you regularly take a diuretic medicine, make sure to eat at least 1 or 2 servings of fruits or vegetables that are high in potassium each day. These include: ?Avocado. ?Banana. ?Montrose, prune, carrot, or tomato juice. ?Baked potato. [...] magnesium, fish oil, or vitamin B6. Take xslf-qgn-ljjcvjg and prescription medicines only as told by [...] based on the type of kidney stones youhave and your overall health. Fruits Grapefruit. The item listed above may not be a complete list of foods and beverages you should avoid. Contact adietitian for more information. Summary Kidney stones are [...] provider. Document Revised: 10/16/2022 Document Reviewed: 10/16/2022 [employer] Patient Education 2022 [employer]. Follow Up Care 11/26/2022 08:11:41 With:Cedric FLOYD, BUDDY Garcia, URO Address: [address] [address] [phone] When: Unknown Comments:6 mos w/ CONCETTA and CEASAR [facility] 09-22-2023 Nurse Note* Macy Leyva RN - 04/10/2023 9:45 AM EDT Tobacco Use: 1.5 packs/day, for 18 years. Quit 07/20/1999. Types: Cigarettes Was smoking cessation packet given? N/A - Patient is a non-smoker or quit >1 year ago. Was a referral initiated?N/A Patient is a non-smoker documented in this encounterPromedica [facility]09-22-2023 History of Present illness Narrative* Adina Rosales MD - 04/10/2023 9:30 AM EDT [facility] [place] [facility] Name: Ofe [...] orbicularis oculi, zygomaticus major, levator labii and unit tender - Severe lateral pull of upper lip to left - related to midface muscles and hyperdynamic orbicularis wililams - philtrum significantly canted EYE -Downward pull [...] (2u, 4 sites) = 8 U Left unit tender (3u, 2 site) = 6 U Left procerus (3u, 1 site) = 3 U Left mentalis (3&2u, 3 sites) 8 U Left platysma (3u, 16 x sites) = 48 units Total: 90 units used (10 Units of botox discarded) Assessment: 66 year old female w/ a hx of facial paralysis and an 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Here today for botox injections and procedure was tolerated well. Interested in lip & nasolabial fold filler at next appt Plan: RTC in 3-4 months for repeat botox injections, sooner for filler Patient will send mychart, does not wish to schedule at this time Adina Rosales MD Facial Plastic and Reconstructive Surgery Fellow [facility], [facility] [place] documented in this encounterPromedica Bay [facility] Hospital05-10-2023 Hospital Discharge instructions Patient Education 11/26/2022 08:10:02 [...] about 300 mg of calcium at each meal.Foods that contain 200 500 mg of calcium a serving include: ?8 oz (237 mL) of milk, mtbjxbr-amlrhdklinrf-dkqfv milk, and calcium- fortifiedfruit juice. Calcium-fortified means that calcium has been [...] the table and allow each person to addhis or her own salt to taste. Use vegetable protein, such as beans, textured vegetable protein (TVP), or tofu, instead of meat inpasta, casseroles, and soups. Meal planning Eat less salt, if told by your dietitian. To do this: ?Avoid eating processed or pre-made food. ?Avoid eating fast food. Eat less animal protein, including cheese, meat, poultry, or fish, if told by your dietitian. To dothis: ?Limit the number of times you have [...] ?Spinach (cooked), rhubarb, beets, sweet potatoes, and [place]er chard. ?Peanuts. ?Potato chips, zimbabwean fries, and baked potatoes with skin on. ?Nuts and nut products. ?Chocolate. If you regularly take a diuretic medicine, make sure to eat at least 1 or 2 servings of fruits or vegetables that are high in potassium each day. These include: ?Avocado. ?Banana. ?[place]rose, prune, carrot, or tomato juice. ?Baked potato. [...] taking daily supplements. You may be told thefollowing depending on your health and the cause of your kidney stones: ?Not to take supplements with vitamin C. ?To take a calcium supplement. ?To take a daily probiotic supplement. ?To take other supplements such as magnesium, fish oil, or vitamin B6. Take toep-nys-xlaioby and prescription medicines only as told by [...] based on the type of kidney stones youhave and your overall health. Fruits Grapefruit. The item listed above may not be a complete list of foods and beverages you should avoid. Contact adietitian for more information. Summary Kidney stones are [...] provider. Document Revised: 03/17/2022 Document Reviewed: 03/17/2022 [employer] Patient Education 2022 [employer] Follow Up Care 07/23/2022 11:38:48 With:Cedric FLOYD, BUDDY Garcia, URO Address: When: Unknown [facility] 01-04-2023 Hospital Discharge instructions Patient Education 07/23/2022 11:37:41 Kidney Stones, Nevf-bj-Nxdz Kidney Stones Kidney stones are rock-like masses [...] Follow these instructions at home: Medicines Take qwxa-lhu-kpearzx and prescription medicines only as told by [...] 12/22/2008 Document Revised: 11/22/2019 Document Reviewed: 11/22/2019 [employer] Patient Education 2020 [employer]. Follow Up Care 01/15/2022 10:50:51 With:Cedric FLOYD, Kera Regalado, URL, URO Address: [address] [facility] [place] [phone] When:Within 3 Month(s) Comments:sched CT AP w/o [facility] 10-28-2022 History of Present illness Narrative* Chelsey Lowery RN - 05/16/2022 1:36 PM EDT Botox 50U with 0.5ml NaCl Lot [id number] Exp 11/2024 * Elizabeth Balbuena MD - 05/16/2022 1:30 PM EDT [facility] [place] [facility]ive Surgery Name: Ofe [...] orbicularis oculi, zygomaticus major, levator labii and unit tender -Severe lateral pull of upper lip to left - related to midface muscles and hyperdynamic orbicularisoris - philtrum significantly canted EYE -Downward pull [...] (2u, 4 site) = 8 u Left unit tender (3u, 2 site) = 6 U Left [...] and an 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Here today for botox injections and procedure was tolerated well. Willing to perform facial suspension if interest is expressed in the future. Plan: RTC -3 months for repeat botox injections Elizabeth Balbuena MD [facility] Team Leader, Facial Plastic and Microvascular Surgery By signing my name below, I, Adrian Sepulveda, attest that this documentation has been prepared under the direction and in the presence of Dr. Elizabeth Balbuena. Electronically signed, Esteban Middleton May 16, 2022 2:59 PM I have reviewed and edited above documentation and it accurately reflects assessment, work and decisions made by me. Elizabeth Balbuena MD [facility] Team Leader, Facial Plastic and Microvascular Surgery UNIVERSAL PROTOCOL [...] applicable. Elizabeth Balbuena MD documented in this encounterPromedica Bay [facility] Hospital10-28-2022 Nurse Note* Nina Orta LPN - 05/16/2022 1:36 PM EDT Tobacco Use: 1.5 packs/day, for 18 years. Quit 07/20/1999. Types: Cigarettes Was smoking cessation packet given? N/A - Patient is a non-smoker or quit >1 year ago. Was a referral initiated?N/A Patient is a non-smoker documented in this encounterPromedica [facility]06-29-2022 Hospital Discharge instructions Patient Education 01/15/2022 10:39:00 Kidney Stones, Oszg-qp-Wwpx Kidney Stones Kidney stones are rock-like masses [...] Follow these instructions at home: Medicines Take adep-tud-qnvlvjm and prescription medicines only as told by [...] 12/22/2008 Document Revised: 11/22/2019 Document Reviewed: 11/22/2019 [employer] Patient Education 2020 [employer]. Follow Up Care 09/18/2021 11:24:57 With:Cedric FLOYD, BUDDY Garcia, URO Address: [address] [place] [address]- [phone] When:07/17/2022 Comments:CONCETTA MCDONOUGH [facility] 06-08-2022 NotePROCEDURE: XR FOOT RT MIN 3 VIEWS COMPARISON: 02/06/2021 HISTORY: Pain in right foot FINDINGS: BONES:No acute fracture or dislocation. Moderate enthesopathic spurring of the calcaneus. Stable corticated calcific density lateral to the cuboid SOFT TISSUES:Negative. No visible soft tissue swelling. EFFUSION:None visible. OTHER: Negative. IMPRESSION: No acute fracture Electronically authenticated by: ARMANDO HOLLINGSWORTH Date: 2021-12-25 16:49[facility] [id number] History of Present illness Narrative* Elizabeth Balbuena MD - 12/13/2021 1:23 PM EDT [facility] [place] [facility] Re[facility]ive Surgery Name: Ofe [...] orbicularis oculi, zygomaticus major, levator labii and unit tender severe lateral pull of upper lip to [...] (2u, 2 sites) = 4 U left unit tender (3u, 2 site) = 6 U left [...] the presence of Dr. Balbuena Electronically signed, Esteban Sesay December 13, 2021 1:29 PM I have reviewed and edited above documentation and it accurately reflects assessment, work and decisions made by me. Elizabeth Balbuena MD [facility] [employer] Team Leader, Facial Plastic and Microvascular Surgery Procedure: Botox Injections Informed Consent Consent Obtained: Written [place] Protocol A moment to CARE was completed [...] Visit completed when applicable documented [facility] Miscellaneous Notes* Telephone Encounter - Patsy Pereyra MA - 11/19/2021 11:18 AM EDT Notified pt of message, expressed understanding. * Telephone Encounter - Patsy Pereyra MA - 11/15/2021 10:05 AM EDT Attempted to call patient, voicemail box has not been set up yet. Please try again later. * Telephone Encounter - Shawna Flores MD, PhD - 11/14/2021 4:52 PM EDT Thyroid level is within normal. No thyroid medication needed. * Telephone Encounter - Patsy Pereyra MA - 11/13/2021 11:42 AM EDT Patient had labs drawn after recent visit, please advise results. Component Latest Ref Rng & Units 03/02/2021 06/29/2021 11/12/2021 TSH 0.270 - 4.200 mIU/L 2.21 1.47 2.420 Free T4 0.9 - 1.7 ng/dL 1.0 documented in this encounter[facility] History of Present illness Narrative* Shawna Flores MD, PhD - 11/12/2021 11:12 AM EDT Ms. Saravia is here today at the [...] 30-34.9 Plan: CONSULT TO [facility] Shawna Flores MD, PhD documented in this encounterProm[facility] + Plan note Future Appointments Appointment Date:07/23/2022 10:00:00 AM Scheduled Provider:Kera Reid MD Location:[facility] Appointment Type:URO Office Visit [facility] evaluation + Plan note Future Appointments Appointment Date:10/29/2022 10:15:00 AM Scheduled Provider:Kera Reid MD Location:[facility] Appointment Type:URO Office Visit [facility] evaluation + Plan note Future Appointments Appointment Date:06/24/2023 08:00:00 AM Scheduled Provider:Kera Reid MD Location:[facility] Appointment Type:URO Office Visit [facility] evaluation + Plan note Future Appointments Appointment Date:01/06/2024 09:00:00 AM Scheduled Provider:Kera Reid MD Location:[facility] Appointment Type:URO Office Visit [facility] evaluation + Plan note Future Appointments Appointment Date:04/06/2024 11:00:00 AM Scheduled Provider:Kera Reid MD Location:[facility] Appointment Type:URO Office Visit [facility] evaluation + Plan note Future Appointments Appointment Date:04/12/2024 12:40:00 PM Scheduled Provider:ANN FORTE PA-C Location:[facility] Appointment Type:URO Office Visit Future Scheduled Tests Radiology* XR Abdomen 1 View 04/04/24 * US Renal 04/04/24 [facility] Evaluation + Plan note Future Appointments Appointment Date:09/28/2024 08:45:00 AM Scheduled Provider:Kera Reid MD Location:[facility] Appointment Type:URO Office Visit Diagnostic Tests Pending * Basic Metabolic Panel 06/23/24 Future Scheduled Tests Radiology* XR Abdomen 1 View 04/04/24 * US Renal 04/04/24 [facility] evaluation noteNo Assessments Information Available [facility]* Diagnosis Multiple thyroid nodules- Primary Nontoxic multinodular goiter Obesity, Class I, BMI 30-34.9 Obesity, unspecified Vasomotor symptoms due to menopause documented [facility] this [facility]* Diagnosis 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 Facial nerve disorder, unspecified [facility] Facial nerve motor disorder- Primary Facial nerve disorder, unspecified [facility] Diagnosis 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 noteNo assessment information available[facility] Work Phone: evaluation note* Diagnosis 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 Diagnosis Preoperative cardiovascular examination Pre-operative cardiovascular examination Mixed hyperlipidemia Acquired hypothyroidism Unspecified hypothyroidism Tremor Abnormal involuntary movements BMI 31.0-31.9,adult Former smoker Personal history of tobacco use, presenting hazards to health documented in this encounter [facility] Work Phone: Evaluation note* Diagnosis Right shoulder pain, unspecified chronicity- Primary [facility] Diagnosis Pain- Primary Generalized pain [facility]* Diagnosis Right shoulder pain, unspecified chronicity [facility] Diagnosis Chronic right shoulder pain- Primary Pain in joint, shoulder region Tendinopathy of right rotator cuff [facility]* Diagnosis Chronic right shoulder pain- Primary Pain in joint, shoulder region Abnormal MRI Other nonspecific (abnormal) findings on radiological and other examinations of body structure [facility] Diagnosis Pain in right hip- Primary Pain in joint, pelvic region and thigh Lytic bone lesions on xray Disorder of bone and cartilage, unspecified Thyroid nodule Nontoxic uninodular goiter Thyroid nodule greater than or equal to 1 cm in diameter incidentally noted on imaging study Pain in right hip Pain in joint, pelvic region and thigh Thyroid nodule Nontoxic uninodular goiter Thyroid nodule greater than or equal to 1 cm in diameter incidentally noted on imaging study [facility]* Diagnosis Pain in right hip Pain in joint, pelvic region and thigh Thyroid nodule Nontoxic uninodular goiter Thyroid nodule greater than or equal to 1 cm in diameter incidentally noted on imaging study [facility]* Diagnosis Lytic bone lesions on xray- Primary Disorder of bone and cartilage, unspecified Lytic bone lesions on xray Disorder of bone and cartilage, unspecified [facility]* Diagnosis Lytic bone lesions on xray Disorder of bone and cartilage, unspecified [facility]* Diagnosis Metastatic cancer to bone (HCC)- Primary Secondary malignant neoplasm of bone and bone marrow Lung mass Swelling, mass, or lump in chest Lytic bone lesions on xray Disorder of bone and cartilage, unspecified [facility] Diagnosis 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 neoplasm of bone and bone marrow 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) Malignant neoplasm of upper lobe, bronchus or lung [facility]* Diagnosis Metastatic cancer to bone (HCC)- Primary Secondary malignant neoplasm of bone and bone marrow Lytic bone lesions on xray Disorder of bone and cartilage, unspecified Lung mass Swelling, mass, or lump in chest documented [facility]* Diagnosis Malignant neoplasm of overlapping sites of right lung (HCC)- Primary [facility]* Diagnosis Malignant neoplasm of overlapping sites of right lung (HCC) Anxiety disorder, unspecified type [facility]* Diagnosis Palliative care by specialist- Primary Lung mass Swelling, mass, or lump in chest Metastatic cancer to bone (HCC) Secondary malignant neoplasm of bone and bone marrow Neoplasm related pain Neoplasm related pain (acute) (chronic) Constipation due to opioid therapy Anorexia [facility]* Diagnosis Malignant neoplasm of overlapping sites of right lung (HCC)- Primary [facility]* Diagnosis Metastatic cancer to bone (HCC) Secondary malignant neoplasm of bone and bone marrow Lung mass Swelling, mass, or lump in chest documented [facility]* Diagnosis Malignant neoplasm of overlapping sites of right lung (HCC)- Primary [facility]* Diagnosis Lytic bone lesions on xray Disorder of bone and cartilage, unspecified [facility]* Diagnosis Lung mass- Primary Swelling, mass, or lump in chest Metastatic cancer to bone (HCC) Secondary malignant neoplasm of bone and bone marrow documented [facility]* Diagnosis Malignant neoplasm of overlapping sites of right lung (HCC)- Primary [facility]* Diagnosis Lung mass- Primary Swelling, mass, or lump in chest Metastatic cancer to bone (HCC) Secondary malignant neoplasm of bone and bone marrow Malignant neoplasm of overlapping sites of right lung (HCC) Chemotherapy induced diarrhea Diarrhea Chemotherapy-induced fatigue [facility]* Diagnosis 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 neoplasm of bone and bone marrow 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) Malignant neoplasm of upper lobe, bronchus or lung [facility] Diagnosis Metastatic cancer to bone (HCC)- Primary Secondary malignant neoplasm of bone and bone marrow Malignant neoplasm of overlapping sites of right lung (HCC) Malaise and fatigue Other malaise and fatigue [facility]* Diagnosis Palliative care by specialist- Primary Metastatic cancer to bone (HCC) Secondary malignant neoplasm of bone and bone marrow Constipation due to opioid therapy Lung mass Swelling, mass, or lump in chest Neoplasm related pain Neoplasm related pain (acute) (chronic) Anorexia Chronic obstructive pulmonary disease, unspecified COPD type (HCC) SOB (shortness of breath) Shortness of breath [facility]* Diagnosis Panic disorder- Primary Panic disorder without agoraphobia documented [facility]* Diagnosis 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 neoplasm of bone and bone marrow [facility]* Diagnosis 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 neoplasm of bone and bone marrow 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) Malignant neoplasm of upper lobe, bronchus or lung [facility]* Diagnosis Metastatic cancer to bone (HCC)- Primary Secondary malignant neoplasm of bone and bone marrow Malignant neoplasm of overlapping sites of right lung (HCC) documented [facility] this encounter [facility]* Diagnosis Malignant neoplasm of overlapping sites of right lung (HCC)- Primary [facility]* Diagnosis Metastatic cancer to bone (HCC) Secondary malignant neoplasm of bone and bone marrow Malignant neoplasm of overlapping sites of right lung (HCC) documented [facility] this [facility]* Diagnosis Lung mass- Primary Swelling, mass, or lump in chest Malignant neoplasm of overlapping sites of right lung (HCC) Other mixed anxiety disorders documented in this encounter [facility]* Diagnosis 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, unspecified site Migraine without aura and without status migrainosus, not intractable (CMS/HCC) Trigeminal neuralgia (CMS/HCC) Trigeminal neuralgia History of stroke Transient ischemic attack (TIA), and cerebral infarction without residual deficits Anxiety disorder, unspecified type Tremor Abnormal involuntary movements [facility] Diagnosis Malignant neoplasm of overlapping sites of right lung (HCC)- Primary [facility]* Diagnosis Palliative care by specialist- Primary Constipation due to opioid therapy Neoplasm related pain Neoplasm related pain (acute) (chronic) Metastatic cancer to bone (HCC) Secondary malignant neoplasm of bone and bone marrow Lung mass Swelling, mass, or lump in chest documented [facility]* Diagnosis Malignant neoplasm of overlapping sites of right lung (HCC)- Primary Metastatic cancer to bone (HCC) Secondary malignant neoplasm of bone and bone marrow Malaise and fatigue Other malaise and fatigue Pain of right upper arm Pain in limb Swelling of arm Swelling of limb [facility] Diagnosis 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)- Primary Metastatic cancer to bone (HCC) Secondary malignant neoplasm of bone and bone marrow [facility]* Diagnosis Malignant neoplasm of overlapping sites of right lung (HCC)- Primary [facility]* Diagnosis Metastatic cancer to bone (HCC) Secondary malignant neoplasm of bone and bone marrow documented [facility]* Diagnosis Metastatic cancer to bone (HCC)- Primary Secondary malignant neoplasm of bone and bone marrow [facility] Diagnosis 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)- Primary Other fatigue [facility] Diagnosis 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 neoplasm of bone and bone marrow 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) Malignant neoplasm of upper lobe, bronchus or lung documented in this encounter [facility]* Diagnosis 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 neoplasm of bone and bone marrow documented in this encounter [facility]* Diagnosis 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)- Primary documented in this encounter [facility]* Diagnosis Encounter for education- Primary Counseling NOS documented in this encounter [facility]* Diagnosis Onset Date Resolution Status Admit Date Arteriovenous malformation (AVM) chronicJuly 2024 3:41pmHistory of strokechronicJuly 2024 3:41pm Migraine without aura and without status migrainosus, not intractablechronicJu2024 3:41pmTremorchronicJuly 2024 3:41pmTrigeminal neuralgiachronic Maria M 2024 3:41pmHypnopompic hallucinationresolvedJuly 2024 3:41pm [facility] Work Phone: Evaluation note* Diagnosis Facial nerve motor disorder- Primary Facial nerve disorder, unspecified Clonic hemifacial spasm, 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 documented [facility] this encounter [facility]* Diagnosis 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 neoplasm of bone and bone marrow [facility]* Diagnosis 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 neoplasm of bone and bone marrow [facility] Diagnosis 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 neoplasm of bone and bone marrow [facility]* Diagnosis Palliative care by specialist- Primary Metastatic cancer to bone (HCC) Secondary malignant neoplasm of bone and bone marrow Neoplasm related pain Neoplasm related pain (acute) (chronic) Chemotherapy-induced nausea Nausea alone Constipation due to opioid therapy Lung mass Swelling, mass, or lump in chest Chronic obstructive pulmonary disease, unspecified COPD type (HCC) SOB (shortness of breath) Shortness of breath Secondary malignant neoplasm of unspecified site (HCC) documented in this encounter [facility] note* Diagnosis Multiple thyroid nodules- Primary Nontoxic multinodular goiter Acquired hypothyroidism Unspecified hypothyroidism documented in this encounter [facility] note* Diagnosis 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)- Primary Other fatigue documented in this encounter [facility] note* Diagnosis 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 neoplasm of bone and bone marrow documented in this encounter [facility] course Narrative No data available for this section [facility] Discharge instructions No data available for this section [facility] Progress note No data available for this section [facility] reason for referral (narrative)* Diagnostic Procedure Only (Routine) - AuthorizedSpecialtyDiagnoses / ProceduresReferred By Contact Referred To ContactXR IMAGING Diagnoses Right shoulder pain, unspecified chronicity Procedures XR SHOULDER ORTHO 4V AP/TRUE AP/LAT/OUTLET RIGHT RADEX SHOULDER COMPLETE MINIMUM 2 VIEWS Paulina Jacobson MD [address] [place] [address] [place] [address] Referral IDStatusReasonStturners falls DateExpiration DateVisits RequestedVisits [id number] Auto-Generated Referral / [facility] for referral (narrative)* Diagnostic Procedure Only (Routine) - AuthorizedSpecialtyDiagnoses / ProceduresReferred By Contact Referred To ContactXR IMAGING Diagnoses Pain Procedures XR SHOULDER GENERAL 3V OR MORE AP/TRUE AP/OTHER RIGHT RADEX SHOULDER COMPLETE MINIMUM 2 VIEWS Paulina Jacobson MD [address] [place] [address] [facility] [place] [address] Referral IDStatusReason[place] DateExpiration DateVisits RequestedVisits [id number] Auto-Generated Referral / [facility] for referral (narrative)* Diagnostic Procedure Only (Routine) - New RequestSpecialtyDiagnoses / ProceduresReferred By Contact Referred To ContactMOLECULAR & FUNCTIONAL IMAGING Diagnoses Lytic bone lesions on xray Thyroid nodule Thyroid nodule greater than or equal to 1 cm in diameter incidentally noted on imaging study Procedures NM BONE WHOLE BODY BONE &/JOINT IMAGING WHOLE BODY Darian Barclay PA-C [address] [place] [address] Molecular & Functional Imaging [address] [place] [address] Referral IDStatusReason[place] DateExpiration DateVisits RequestedVisits [id number] Request Auto-Generated Referral * MRI/CT (Routine) - New RequestSpecialtyDiagnoses / ProceduresReferred By ContactReferred To ContactCT IMAGING Diagnoses Lytic bone lesions on xray Thyroid nodule Thyroid nodule greater than or equal to 1 cm in diameter incidentally noted on imaging study Procedures CT CHEST W IVCON DIAGNOSTIC COMPUTED TOMOGRAPHY THORAX W/CONTRAST Darian Barclay PA-C [address] [place] [address] Ct [facility] Referral IDStatusReasonStturners falls DateExpiration DateVisits RequestedVisits [id number] Request Auto-Generated Referral * MRI/CT (Routine) - New RequestSpecialtyDiagnoses / ProceduresReferred By ContactReferred To ContactCT IMAGING Diagnoses Lytic bone lesions on xray Thyroid nodule Thyroid nodule greater than or equal to 1 cm in diameter incidentally noted on imaging study Procedures CT ABD/PEL W IVCON CT ABD & PELVIS W/CONTRAST Darian Barclay PA-C [address] [place] [address] Ct Imaging [place] [address] Referral IDStatusReasonStart DateExpiration DateVisits RequestedVisits [id number] Request Auto-Generated Referral * Diagnostic Procedure Only (Routine) - ClosedSpecialtyDiagnoses / Procedures Referred By ContactReferred To ContactXR IMAGING Diagnoses Pain in right hip Thyroid nodule Thyroid nodule greater than or equal to 1 cm in diameter incidentally noted on imaging study Procedures XR HIP GENERAL 3V PELV/AP/LAT RIGHT RADEX HIP UNILATERAL WITH PELVIS 2-3 VIEWS Darian Barclay PA-C [address] [place] [address] [facility] [place] [address] Referral IDStatusReasonStart DateExpiration DateVisits RequestedVisits [id number] Auto-Generated Referral [facility] for referral (narrative)* Diagnostic Procedure Only (Routine) - ClosedSpecialtyDiagnoses / ProceduresReferred By ContactReferred To ContactXR IMAGING Diagnoses Pain in right hip Thyroid nodule Thyroid nodule greater than or equal to 1 cm in diameter incidentally noted on imaging study Procedures XR HIP GENERAL 3V PELV/AP/LAT RIGHT RADEX HIP UNILATERAL WITH PELVIS 2-3 VIEWS Darian Barclay PA-C [address] [place] [address] Xr Imaging [place] [address] Referral IDStatusReasonStturners falls DateExpiration DateVisits RequestedVisits [id number] Auto-Generated Referral / [facility] for referral (narrative)No reason for referral information availableAdena [facility] Work Phone: [facility] Narrative* Diagnostic Procedure Only (Routine) - ClosedSpecialtyDiagnoses / ProceduresReferred By ContactReferred To ContactXR IMAGING Diagnoses Right shoulder pain, unspecified chronicity Procedures XR SHOULDER ORTHO 4V AP/TRUE AP/LAT/OUTLET RIGHT RADEX SHOULDER COMPLETE MINIMUM 2 VIEWS Paulina Jacobson MD [address] [place] [address] Xr Imaging [place] [address] Referral IDStatusReasonStturners falls DateExpiration DateVisits RequestedVisits [id number] Auto-Generated Referral / [facility] for visit Narrative* [place] Prior Authorization (Routine) - AuthorizedSpecialtyDiagnoses / ProceduresReferred By ContactReferred To Contact Diagnoses Malignant neoplasm of overlapping sites of right lung (HCC) Sarabjit Crowley, [address] [facility] [address] Phone: tel: fax: Hematology/Oncology [address] [place] [address] [place] [address] Phone: tel: fax: Referral IDStatusReasonStart DateExpiration DateVisits RequestedVisits [id number]/ [facility] for visit Narrative* [place] Prior Authorization (Routine) - ClosedSpecialtyDiagnoses / ProceduresReferred By ContactReferred To Contact Diagnoses Malignant neoplasm of overlapping sites of right lung (HCC) Sarabjit Crowley, DO [address] [place] [address] Phone: tel: fax: Hematology/Oncology [address] [place] [address] [place] [address] Phone: tel: fax: Referral IDStatusReasonStart DateExpiration DateVisits RequestedVisits [id number] [facility] Advance Directives No Advanced Directives Records Found Advance Directive Response Recorded Date/ Time Advance Directives No May 2:55pm TypeDate RecordedPatient RepresentativeExplanationAdvance Directive(s)06/24/2019 7:51 AMAdvance Directive(s)06/01/2018 7:17 AMAdvance Directive(s)05/27/2018 1:38 PMAdvance Directive(s)12/12/2009 8:53 PMTypeDate RecordedPatient Hotel 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 ExplanationAdvance Directive(s)06/24/2019 7:51 AMAdvance Directive(s)06/01/2018 7:17 AMAdvance Directive(s)05/27/2018 1:38 PMAdvance Directive(s)12/12/2009 8:53 PMTypeDate RecordedPatient RepresentativeExplanationAdvance Directive(s) 12/12/2009 8:53 PM Advance Directive Response Recorded Date/ Time Advance Directives No May 1:55pm TypeDate RecordedPatient RepresentativeExplanationAdvance Directive(s)12/12/2009 8:53 PM Chief Complaint and Reason for Visit Chief Complaint Screening Chief Complaint Q27.30 R44.1 Chief Complaint Admit Date right kidney stone, ureteral stone w/hyd ronephrosi May 31, 2024 1:15pm Chief Complaint Admit Date right kidney stone, ureteral stone w/hyd ronephrosi May 31, 2024 1:15pm right kidney stone, ureteral stone w/hyd ronephrosi June 07, 2024 11:37am Chief Complaint Admit Date right kidney stone, ureteral stone w/hyd ronephrosi May 31, 2024 1:15pm right kidney stone, ureteral stone w/hyd ronephrosi June 07, 2024 11:37am m89.9 e04.1 August 08, 2024 7 :37am Chief Complaint Admit Date right kidney stone, ureteral stone w/hyd ronephrosi May 31, 2024 1:15pm right kidney stone, ureteral stone w/hyd ronephrosi June 07, 2024 11:37am m89.9 e04.1 August 08, 2024 7 :37am E04.1 August 09, 2024 3 :48pm Chief Complaint Admit Date right kidney stone, ureteral stone w/hyd ronephrosi June 07, 2024 11:37am m89.9 e04.1 August 08, 2024 7 :37am E04.1 August 09, 2024 3 :48pm c34.81 September 01, 2024 6:49am Chief Complaint Admit Date m89.9 e04.1 August 08, 2024 7 :37am E04.1 August 09, 2024 3 :48pm c34.81 September 01, 2024 6:49am dizzy, not eating or drinking, cancer pt September 07, 2024 12:51am Reason for Visit Admit Date Anemia September 07, 2024 12:51am Arthralgia September 07, 2024 12:51am CAP (community acquired pneumonia) Febru [email or web address] 12:51am History of lung cancer September 07 12:51am Chief Complaint Admit Date m89.9 e04.1 August 08, 2024 7 :37am E04.1 August 09, 2024 3 :48pm c34.81 September 01, 2024 6:49am dizzy, not eating or drinking, cancer pt September 07, 2024 12:51am dizzy, not eating or drinking, cancer pt September 09, 2024 9:34am dizzy, not eating or drinking, cancer pt September 09, 2024 2:13pm Reason for Visit Admit Date Anemia September 07, 2024 12:51am Arthralgia September 07, 2024 12:51am CAP (community acquired pneumonia) Febru lorena 2024 12:51am History of lung cancer September 07 12:51am History of stroke with residual deficit September 07, 2024 12:51am Hypothyroidism September 07, 2024 12:51am Impaired mobility and activities of terry y living September 07, 2024 12:51am Intermittent fever September 07, 2024 12:51am Loose stools September 07, 2024 12:51am Metastatic disease September 07, 2024 12:51am Chief Complaint Admit Date c34.81 September 01, 2024 6:49am dizzy, not eating or drinking, cancer pt September 07, 2024 12:51am dizzy, not eating or drinking, cancer pt September 09, 2024 9:34am dizzy, not eating or drinking, cancer pt September 09, 2024 2:13pm R60.0 r/o DVT November 08, 2024 9:5 1am Chief Complaint Admit Date R60.0 r/o DVT November 08, 2024 9:5 1am c34.92 February 02, 2025 3:21 pm Chief Complaint Admit Date R60.0 r/o DVT November 08, 2024 9:5 1am c34.92 February 02, 2025 3:21 pm Amb Documentation February 06, 2025 2:19 pm SB/AH YENI CH/SC February 06, 2025 3:41 pm Reason for Visit Admit Date Arteriovenous malformation (AVM) February 062024 3:41pm History of stroke February 06, 2025 3:41 pm Migraine without aura and wi thout status migrainosus, not intractable February 06, 2025 3:41pm Tremor February 06, 2025 3:41 pm Trigeminal neuralgia February 06, 2025 3:4 1pm Hypnopompic hallucination February 06 3:41pm Reason for Referral SpecialtyDiagnoses / ProceduresReferred By ContactReferred To Contact Diagnoses Vasomotor symptoms due to menopause Procedures CONSULT TO WOMEN'S HEALTH OFFICE/OUTPATIENT [facility] 60-74 MINUTES Shawna Flores MD, PhD [address] [place] [address] Vicki Kiser MD [address] [place] [address] Referral IDStatusReasonStart DateExpiration DateVisits RequestedVisits [id number] PCP Requested Referral Auto-Generated Referral /[id number] / ProceduresReferred By ContactReferred To Contact Diagnoses Chronic right shoulder pain Abnormal MRI Procedures CONSULT PANEL TO ORTHOPAEDICS OFFICE/OUTPATIENT [facility] 60 MINUTES Paulina Jacobson MD [address] [place] [address] López Hrarison RNFA [address] [place] [address] Referral IDStatusReasonStart DateExpiration DateVisits RequestedVisits [id number] PCP Requested Referral [id number] / ProceduresReferred By ContactReferred To ContactREHAB AND SPORTS THERAPY INS Diagnoses Metastatic cancer to bone (HCC) Lytic bone lesions on xray Procedures CONSULT TO PHYSICAL THERAPY PHYSICAL THERAPY EVALUATION [facility] 45 MINS Darian Barclay PA-C [address] [place] [address] [facility] [place] [address] [place] [address] Referral IDStatusReasonStart DateExpiration DateVisits RequestedVisits [id number] PCP Requested Referral Auto-Generated Referral /[id number] / ProceduresReferred By ContactReferred To ContactXR IMAGING Diagnoses Metastatic cancer to bone (HCC) Lytic bone lesions on xray Lung mass Procedures XR HIP SPECIAL 2V JUDET VIEWS RADEX HIP UNILATERAL WITH PELVIS 2-3 VIEWS Darian Barclay PA-C [address] [place] [address] Xr Imaging [place] [address] Referral IDStatusReasonStart DateExpiration DateVisits RequestedVisits [id number] Request Auto-Generated Referral [id number] / ProceduresReferred By ContactReferred To ContactXR IMAGING Diagnoses Metastatic cancer to bone (HCC) Lytic bone lesions on xray Lung mass Procedures XR PELVIS 1V AP RADIOLOGIC EXAMINATION PELVIS 1/2 VIEWS Darian Barclay PA-C [address] [place] [address] Xr Imaging [place] [address] Referral IDStatusReasonStart DateExpiration DateVisits RequestedVisits [id number] Request Auto-Generated Referral [id number] / ProceduresReferred By ContactReferred To ContactXR IMAGING Diagnoses Metastatic cancer to bone (HCC) Lytic bone lesions on xray Procedures XR SCAPULA 2V AP/LAT RIGHT RADEX SCAPULA COMPLETE Darian Barclay PA-C [address] [place] [address] Xr Imaging [place] [address] Referral IDStatusReasonStart DateExpiration DateVisits RequestedVisits [id number] Request Auto-Generated Referral [id number] / ProceduresReferred By ContactReferred To ContactMR IMAGING Diagnoses Malignant neoplasm of overlapping sites of right lung (HCC) Procedures MRI BRAIN WO/W IVCON MRI BRAIN BRAIN STEM W/O W/CONTRAST MATERIAL Sarabjit Crowley, [address] [place] [address] Mr Imaging [place] [address] Referral IDStatusReasonStart DateExpiration DateVisits RequestedVisits [id number] Request Auto-Generated Referral [id number] / ProceduresReferred By ContactReferred To ContactOncology Diagnoses Malignant neoplasm of overlapping sites of right lung (HCC) Procedures CONSULT TO ONCOLOGY OFFICE/OUTPATIENT [facility] 60 MINUTES Sarabjit Crowley, DO [address] [place] [address] Referral IDStatusReasonStart DateExpiration DateVisits RequestedVisits [id number] PCP Requested Referral / Medications Administered Section Medication OrderMAR ActionAction DateDoseRateSite onabotulinum toxin type A 94 Units injection (BOTOX) 94 Units, INTRAMUSCULAR, ONCE (UP TO 30 DAYS AMB), 1 dose, On 01/19/22 at 0900, This record documents the total dose provided to patient. See progress note for specific locations and amounts administered. REFRIGERATE - Pharmaceutical Waste: Lab Pack - Given01/19/2022 8:30 AM [id number] UnitsFaceMedication OrderMAR ActionAction DateDose RateSite onabotulinum toxin type A 100 Units injection (BOTOX) 100 Units, INTRAMUSCULAR, ONCE (UP TO 30 DAYS AMB), 1 dose, On 06/01/22 at 1100, This record documents the total dose provided to patient. See progress note for specific locations and amounts administered. REFRIGERATE - Pharmaceutical Waste: Lab Pack - Given06/01/2022 10:32 AM [id number] UnitsFace Summary Purpose Family History No Family History Records Found Relationship Condition Age at Onset Recorded Date/T jose father Malignant neoplasm of kidney Unknown AneurysmUnknownmotherAlive and wellUnknownbrotherHeart diseaseUnknownHeart valve diseaseUnknownPresence of cardiac pacemakerUnknownCerebrovascular accident (CVA)Unknown Additional Source Comments Source Comments (unrecognize d section and content) In the event this informatio n is protected by the Federal Confidentiality of Alcohol and Drug Abuse Patient Records regulations: The Federal rules restrict any use of the information to criminally investigate or prosecute any alcohol or drug abuse patient.[facility] the event this information is protected by the Federal Confidentiality of Alcohol and Drug Abuse Patient Records regulations: The Federal rules restrict any use of the information to criminally investigate or prosecute any alcohol or drug abuse patient.[facility] HospitalIn the event this information is protected by the Federal Confidentiality of Alcohol and Drug Abuse Patient Records regulations: The Federal rules restrict any use of the information to criminally investigate or prosecute any alcohol or drug abuse patient.[facility] HospitalIn the event this information is protected by the Federal Confidentiality of Alcohol and Drug Abuse Patient Records regulations: The Federal rules restrict any use of the information to criminally investigate or prosecute any alcohol or drug abuse patient.[facility] HospitalIn the event this information is protected by the Federal Confidentiality of Alcohol and Drug Abuse Patient Records regulations: The Federal rules restrict any use of the information to criminally investigate or prosecute any alcohol or drug abuse patient.[facility] HospitalIn the event this information is protected by the Federal Confidentiality of Alcohol and Drug Abuse Patient Records regulations: The Federal rules restrict any use of the information to criminally investigate or prosecute any alcohol or drug abuse patient.[facility] HospitalIn the event this information is protected by the Federal Confidentiality of Alcohol and Drug Abuse Patient Records regulations: The Federal rules restrict any use of the information to criminally investigate or prosecute any alcohol or drug abuse patient.[facility] HospitalIn the event this information is protected by the Federal Confidentiality of Alcohol and Drug Abuse Patient Records regulations: The Federal rules restrict any use of the information to criminally investigate or prosecute any alcohol or drug abuse patient.[facility] HospitalIn the event this information is protected by the Federal Confidentiality of Alcohol and Drug Abuse Patient Records regulations: The Federal rules restrict any use of the information to criminally investigate or prosecute any alcohol or drug abuse patient.[facility] HospitalIn the event this information is protected by the Federal Confidentiality of Alcohol and Drug Abuse Patient Records regulations: The Federal rules restrict any use of the information to criminally investigate or prosecute any alcohol or drug abuse patient.[facility] the event this information is protected by the Federal Confidentiality of Alcohol and Drug Abuse Patient Records regulations: The Federal rules restrict any use of the information to criminally investigate or prosecute any alcohol or drug abuse patient.[facility] HospitalIn the event this information is protected by the Federal Confidentiality of Alcohol and Drug Abuse Patient Records regulations: The Federal rules restrict any use of the information to criminally investigate or prosecute any alcohol or drug abuse patient.[facility] HospitalIn the event this information is protected [...] prosecute any alcohol or drug abuse patient.[facility] HospitalIn the event this information is protected by the Federal Confidentiality of Alcohol and Drug Abuse Patient Records regulations: The Federal rules restrict any use of the information to criminally investigate or prosecute any alcohol or drug abuse patient.[facility] HospitalIn the event this information is protected by the Federal Confidentiality of Alcohol and Drug Abuse Patient Records regulations: The Federal rules restrict any use of the information to criminally investigate or prosecute any alcohol or drug abuse patient.[facility] HospitalIn the event this information is protected by the Federal Confidentiality of Alcohol and Drug Abuse Patient Records regulations: The Federal rules restrict any use of the information to criminally investigate or prosecute any alcohol or drug abuse patient.[facility] HospitalIn the event this information is protected by the Federal Confidentiality of Alcohol and Drug Abuse Patient Records regulations: The Federal rules restrict any use of the information to criminally investigate or prosecute any alcohol or drug abuse patient.[facility] HospitalIn the event this information is protected by the Federal Confidentiality of Alcohol and Drug Abuse Patient Records regulations: The Federal rules restrict any use of the information to criminally investigate or prosecute any alcohol or drug abuse patient.[facility] HospitalIn the event this information is protected by the Federal Confidentiality of Alcohol and Drug Abuse Patient Records regulations: The Federal rules restrict any use of the information to criminally investigate or prosecute any alcohol or drug abuse patient.[facility] HospitalIn the event this information is protected by the Federal Confidentiality of Alcohol and Drug Abuse Patient Records regulations: The Federal rules restrict any use of the information to criminally investigate or prosecute any alcohol or drug abuse patient.[facility] HospitalIn the event this information is protected by the Federal Confidentiality of Alcohol and Drug Abuse Patient Records regulations: The Federal rules restrict any use of the information to criminally investigate or prosecute any alcohol or drug abuse patient.[facility] HospitalIn the event this information is protected by the Federal Confidentiality of Alcohol and Drug Abuse Patient Records regulations: The Federal rules restrict any use of the information to criminally investigate or prosecute any alcohol or drug abuse patient.[facility] HospitalIn the event this information is protected by the Federal Confidentiality of Alcohol and Drug Abuse Patient Records regulations: The Federal rules restrict any use of the information to criminally investigate or prosecute any alcohol or drug abuse patient.[facility] HospitalIn the event this information is protected by the Federal Confidentiality of Alcohol and Drug Abuse Patient Records regulations: The Federal rules restrict any use of the information to criminally investigate or prosecute any alcohol or drug abuse patient.[facility] HospitalIn the event this information is protected by the Federal Confidentiality of Alcohol and Drug Abuse Patient Records regulations: The Federal rules restrict any use of the information to criminally investigate or prosecute any alcohol or drug abuse patient.[facility] HospitalIn the event this information is protected by the Federal Confidentiality of Alcohol and Drug Abuse Patient Records regulations: The Federal rules restrict any use of the information to criminally investigate or prosecute any alcohol or drug abuse patient.[facility] HospitalIn the event this information is protected by the Federal Confidentiality of Alcohol and Drug Abuse Patient Records regulations: The Federal rules restrict any use of the information to criminally investigate or prosecute any alcohol or drug abuse patient.[facility] HospitalIn the event this information is protected by the Federal Confidentiality of Alcohol and Drug Abuse Patient Records regulations: The Federal rules restrict any use of the information to criminally investigate or prosecute any alcohol or drug abuse patient.[facility] HospitalIn the event this information is protected by the Federal Confidentiality of Alcohol and Drug Abuse Patient Records regulations: The Federal rules restrict any use of the information to criminally investigate or prosecute any alcohol or drug abuse patient.[facility] HospitalIn the event this information is protected by the Federal Confidentiality of Alcohol and Drug Abuse Patient Records regulations: The Federal rules restrict any use of the information to criminally investigate or prosecute any alcohol or drug abuse patient.[facility] HospitalIn the event this information is protected by the Federal Confidentiality of Alcohol and Drug Abuse Patient Records regulations: The Federal rules restrict any use of the information to criminally investigate or prosecute any alcohol or drug abuse patient.[facility] HospitalIn the event this information is protected by the Federal Confidentiality of Alcohol and Drug Abuse Patient Records regulations: The Federal rules restrict any use of the information to criminally investigate or prosecute any alcohol or drug abuse patient.[facility] HospitalIn the event this information is protected by the Federal Confidentiality of Alcohol and Drug Abuse Patient Records regulations: The Federal rules restrict any use of the information to criminally investigate or prosecute any alcohol or drug abuse patient.[facility] HospitalIn the event this information is protected by the Federal Confidentiality of Alcohol and Drug Abuse Patient Records regulations: The Federal rules restrict any use of the information to criminally investigate or prosecute any alcohol or drug abuse patient.[facility] HospitalIn the event this information is protected by the Federal Confidentiality of Alcohol and Drug Abuse Patient Records regulations: The Federal rules restrict any use of the information to criminally investigate or prosecute any alcohol or drug abuse patient.[facility] HospitalIn the event this information is protected by the Federal Confidentiality of Alcohol and Drug Abuse Patient Records regulations: The Federal rules restrict any use of the information to criminally investigate or prosecute any alcohol or drug abuse patient.[facility] HospitalIn the event this information is protected by the Federal Confidentiality of Alcohol and Drug Abuse Patient Records regulations: The Federal rules restrict any use of the information to criminally investigate or prosecute any alcohol or drug abuse patient.[facility] HospitalIn the event this information is protected by the Federal Confidentiality of Alcohol and Drug Abuse Patient Records regulations: The Federal rules restrict any use of the information to criminally investigate or prosecute any alcohol or drug abuse patient.[facility] HospitalIn the event this information is protected by the Federal Confidentiality of Alcohol and Drug Abuse Patient Records regulations: The Federal rules restrict any use of the information to criminally investigate or prosecute any alcohol or drug abuse patient.[facility] HospitalIn the event this information is protected by the Federal Confidentiality of Alcohol and Drug Abuse Patient Records regulations: The Federal rules restrict any use of the information to criminally investigate or prosecute any alcohol or drug abuse patient.[facility] HospitalIn the event this information is protected by the Federal Confidentiality of Alcohol and Drug Abuse Patient Records regulations: The Federal rules restrict any use of the information to criminally investigate or prosecute any alcohol or drug abuse patient.[facility] HospitalIn the event this information is protected by the Federal Confidentiality of Alcohol and Drug Abuse Patient Records regulations: The Federal rules restrict any use of the information to criminally investigate or prosecute any alcohol or drug abuse patient.[facility] HospitalIn the event this information is protected by the Federal Confidentiality of Alcohol and Drug Abuse Patient Records regulations: The Federal rules restrict any use of the information to criminally investigate or prosecute any alcohol or drug abuse patient.[facility] HospitalIn the event this information is protected by the Federal Confidentiality of Alcohol and Drug Abuse Patient Records regulations: The Federal rules restrict any use of the information to criminally investigate or prosecute any alcohol or drug abuse patient.[facility] HospitalIn the event this information is protected by the Federal Confidentiality of Alcohol and Drug Abuse Patient Records regulations: The Federal rules restrict any use of the information to criminally investigate or prosecute any alcohol or drug abuse patient.[facility] HospitalIn the event this information is protected by the Federal Confidentiality of Alcohol and Drug Abuse Patient Records regulations: The Federal rules restrict any use of the information to criminally investigate or prosecute any alcohol or drug abuse patient.[facility] HospitalIn the event this information is protected by the Federal Confidentiality of Alcohol and Drug Abuse Patient Records regulations: The Federal rules restrict any use of the information to criminally investigate or prosecute any alcohol or drug abuse patient.[facility] HospitalIn the event this information is protected by the Federal Confidentiality of Alcohol and Drug Abuse Patient Records regulations: The Federal rules restrict any use of the information to criminally investigate or prosecute any alcohol or drug abuse patient.[facility] HospitalIn the event this information is protected by the Federal Confidentiality of Alcohol and Drug Abuse Patient Records regulations: The Federal rules restrict any use of the information to criminally investigate or prosecute any alcohol or drug abuse patient.[facility] HospitalIn the event this information is protected by the Federal Confidentiality of Alcohol and Drug Abuse Patient Records regulations: The Federal rules restrict any use of the information to criminally investigate or prosecute any alcohol or drug abuse patient.[facility] HospitalIn the event this information is protected by the Federal Confidentiality of Alcohol and Drug Abuse Patient Records regulations: The Federal rules restrict any use of the information to criminally investigate or prosecute any alcohol or drug abuse patient.[facility] HospitalIn the event this information is protected by the Federal Confidentiality of Alcohol and Drug Abuse Patient Records regulations: The Federal rules restrict any use of the information to criminally investigate or prosecute any alcohol or drug abuse patient.[facility] HospitalIn the event this information is protected by the Federal Confidentiality of Alcohol and Drug Abuse Patient Records regulations: The Federal rules restrict any use of the information to criminally investigate or prosecute any alcohol or drug abuse patient.[facility] HospitalIn the event this information is protected by the Federal Confidentiality of Alcohol and Drug Abuse Patient Records regulations: The Federal rules restrict any use of the information to criminally investigate or prosecute any alcohol or drug abuse patient.[facility] HospitalIn the event this information is protected by the Federal Confidentiality of Alcohol and Drug Abuse Patient Records regulations: The Federal rules restrict any use of the information to criminally investigate or prosecute any alcohol or drug abuse patient.[facility] HospitalIn the event this information is protected by the Federal Confidentiality of Alcohol and Drug Abuse Patient Records regulations: The Federal rules restrict any use of the information to criminally investigate or prosecute any alcohol or drug abuse patient.[facility] HospitalIn the event this information is protected by the Federal Confidentiality of Alcohol and Drug Abuse Patient Records regulations: The Federal rules restrict any use of the information to criminally investigate or prosecute any alcohol or drug abuse patient.[facility] HospitalIn the event this information is protected by the Federal Confidentiality of Alcohol and Drug Abuse Patient Records regulations: The Federal rules restrict any use of the information to criminally investigate or prosecute any alcohol or drug abuse patient.[facility] HospitalIn the event this information is protected by the Federal Confidentiality of Alcohol and Drug Abuse Patient Records regulations: The Federal rules restrict any use of the information to criminally investigate or prosecute any alcohol or drug abuse patient.[facility] the event this information is protected by the Federal Confidentiality of Alcohol and Drug Abuse Patient Records regulations: The Federal rules restrict any use of the information to criminally investigate or prosecute any alcohol or drug abuse patient.[facility] HospitalIn the event this information is protected by the Federal Confidentiality of Alcohol and Drug Abuse Patient Records regulations: The Federal rules restrict any use of the information to criminally investigate or prosecute any alcohol or drug abuse patient.[facility] HospitalIn the event this information is protected [...] prosecute any alcohol or drug abuse patient.[facility] HospitalIn the event this information is protected by the Federal Confidentiality of Alcohol and Drug Abuse Patient Records regulations: The Federal rules restrict any use of the information to criminally investigate or prosecute any alcohol or drug abuse patient.[facility] HospitalIn the event this information is protected by the Federal Confidentiality of Alcohol and Drug Abuse Patient Records regulations: The Federal rules restrict any use of the information to criminally investigate or prosecute any alcohol or drug abuse patient.[facility] HospitalIn the event this information is protected by the Federal Confidentiality of Alcohol and Drug Abuse Patient Records regulations: The Federal rules restrict any use of the information to criminally investigate or prosecute any alcohol or drug abuse patient.[facility] HospitalIn the event this information is protected by the Federal Confidentiality of Alcohol and Drug Abuse Patient Records regulations: The Federal rules restrict any use of the information to criminally investigate or prosecute any alcohol or drug abuse patient.[facility] HospitalIn the event this information is protected by the Federal Confidentiality of Alcohol and Drug Abuse Patient Records regulations: The Federal rules restrict any use of the information to criminally investigate or prosecute any alcohol or drug abuse patient.[facility] HospitalIn the event this information is protected by the Federal Confidentiality of Alcohol and Drug Abuse Patient Records regulations: The Federal rules restrict any use of the information to criminally investigate or prosecute any alcohol or drug abuse patient.[facility] HospitalIn the event this information is protected by the Federal Confidentiality of Alcohol and Drug Abuse Patient Records regulations: The Federal rules restrict any use of the information to criminally investigate or prosecute any alcohol or drug abuse patient.[facility] HospitalIn the event this information is protected by the Federal Confidentiality of Alcohol and Drug Abuse Patient Records regulations: The Federal rules restrict any use of the information to criminally investigate or prosecute any alcohol or drug abuse patient.[facility] HospitalIn the event this information is protected by the Federal Confidentiality of Alcohol and Drug Abuse Patient Records regulations: The Federal rules restrict any use of the information to criminally investigate or prosecute any alcohol or drug abuse patient.[facility] HospitalIn the event this information is protected by the Federal Confidentiality of Alcohol and Drug Abuse Patient Records regulations: The Federal rules restrict any use of the information to criminally investigate or prosecute any alcohol or drug abuse patient.[facility] HospitalIn the event this information is protected by the Federal Confidentiality of Alcohol and Drug Abuse Patient Records regulations: The Federal rules restrict any use of the information to criminally investigate or prosecute any alcohol or drug abuse patient.[facility] HospitalIn the event this information is protected by the Federal Confidentiality of Alcohol and Drug Abuse Patient Records regulations: The Federal rules restrict any use of the information to criminally investigate or prosecute any alcohol or drug abuse patient.[facility] HospitalIn the event this information is protected by the Federal Confidentiality of Alcohol and Drug Abuse Patient Records regulations: The Federal rules restrict any use of the information to criminally investigate or prosecute any alcohol or drug abuse patient.[facility] HospitalIn the event this information is protected by the Federal Confidentiality of Alcohol and Drug Abuse Patient Records regulations: The Federal rules restrict any use of the information to criminally investigate or prosecute any alcohol or drug abuse patient.[facility] HospitalIn the event this information is protected by the Federal Confidentiality of Alcohol and Drug Abuse Patient Records regulations: The Federal rules restrict any use of the information to criminally investigate or prosecute any alcohol or drug abuse patient.[facility] HospitalIn the event this information is protected by the Federal Confidentiality of Alcohol and Drug Abuse Patient Records regulations: The Federal rules restrict any use of the information to criminally investigate or prosecute any alcohol or drug abuse patient.[facility] HospitalIn the event this information is protected by the Federal Confidentiality of Alcohol and Drug Abuse Patient Records regulations: The Federal rules restrict any use of the information to criminally investigate or prosecute any alcohol or drug abuse patient.[facility] HospitalIn the event this information is protected by the Federal Confidentiality of Alcohol and Drug Abuse Patient Records regulations: The Federal rules restrict any use of the information to criminally investigate or prosecute any alcohol or drug abuse patient.[facility] HospitalIn the event this information is protected by the Federal Confidentiality of Alcohol and Drug Abuse Patient Records regulations: The Federal rules restrict any use of the information to criminally investigate or prosecute any alcohol or drug abuse patient.[facility] HospitalIn the event this information is protected by the Federal Confidentiality of Alcohol and Drug Abuse Patient Records regulations: The Federal rules restrict any use of the information to criminally investigate or prosecute any alcohol or drug abuse patient.[facility] HospitalIn the event this information is protected by the Federal Confidentiality of Alcohol and Drug Abuse Patient Records regulations: The Federal rules restrict any use of the information to criminally investigate or prosecute any alcohol or drug abuse patient.[facility] HospitalIn the event this information is protected by the Federal Confidentiality of Alcohol and Drug Abuse Patient Records regulations: The Federal rules restrict any use of the information to criminally investigate or prosecute any alcohol or drug abuse patient.[facility] HospitalIn the event this information is protected by the Federal Confidentiality of Alcohol and Drug Abuse Patient Records regulations: The Federal rules restrict any use of the information to criminally investigate or prosecute any alcohol or drug abuse patient.[facility] HospitalIn the event this information is protected by the Federal Confidentiality of Alcohol and Drug Abuse Patient Records regulations: The Federal rules restrict any use of the information to criminally investigate or prosecute any alcohol or drug abuse patient.[facility] HospitalIn the event this information is protected by the Federal Confidentiality of Alcohol and Drug Abuse Patient Records regulations: The Federal rules restrict any use of the information to criminally investigate or prosecute any alcohol or drug abuse patient.[facility] HospitalIn the event this information is protected by the Federal Confidentiality of Alcohol and Drug Abuse Patient Records regulations: The Federal rules restrict any use of the information to criminally investigate or prosecute any alcohol or drug abuse patient.[facility] HospitalIn the event this information is protected by the Federal Confidentiality of Alcohol and Drug Abuse Patient Records regulations: The Federal rules restrict any use of the information to criminally investigate or prosecute any alcohol or drug abuse patient.[facility] HospitalIn the event this information is protected by the Federal Confidentiality of Alcohol and Drug Abuse Patient Records regulations: The Federal rules restrict any use of the information to criminally investigate or prosecute any alcohol or drug abuse patient.[facility] HospitalIn the event this information is protected by the Federal Confidentiality of Alcohol and Drug Abuse Patient Records regulations: The Federal rules restrict any use of the information to criminally investigate or prosecute any alcohol or drug abuse patient.[facility] HospitalIn the event this information is protected by the Federal Confidentiality of Alcohol and Drug Abuse Patient Records regulations: The Federal rules restrict any use of the information to criminally investigate or prosecute any alcohol or drug abuse patient.[facility] HospitalIn the event this information is protected by the Federal Confidentiality of Alcohol and Drug Abuse Patient Records regulations: The Federal rules restrict any use of the information to criminally investigate or prosecute any alcohol or drug abuse patient.[facility] HospitalIn the event this information is protected by the Federal Confidentiality of Alcohol and Drug Abuse Patient Records regulations: The Federal rules restrict any use of the information to criminally investigate or prosecute any alcohol or drug abuse patient.[facility] HospitalIn the event this information is protected by the Federal Confidentiality of Alcohol and Drug Abuse Patient Records regulations: The Federal rules restrict any use of the information to criminally investigate or prosecute any alcohol or drug abuse patient.[facility] HospitalIn the event this information is protected by the Federal Confidentiality of Alcohol and Drug Abuse Patient Records regulations: The Federal rules restrict any use of the information to criminally investigate or prosecute any alcohol or drug abuse patient.[facility] HospitalIn the event this information is protected by the Federal Confidentiality of Alcohol and Drug Abuse Patient Records regulations: The Federal rules restrict any use of the information to criminally investigate or prosecute any alcohol or drug abuse patient.[facility] HospitalIn the event this information is protected by the Federal Confidentiality of Alcohol and Drug Abuse Patient Records regulations: The Federal rules restrict any use of the information to criminally investigate or prosecute any alcohol or drug abuse patient.[facility] HospitalIn the event this information is protected by the Federal Confidentiality of Alcohol and Drug Abuse Patient Records regulations: The Federal rules restrict any use of the information to criminally investigate or prosecute any alcohol or drug abuse patient.[facility] HospitalIn the event this information is protected by the Federal Confidentiality of Alcohol and Drug Abuse Patient Records regulations: The Federal rules restrict any use of the information to criminally investigate or prosecute any alcohol or drug abuse patient.[facility] Reason for Visit (unrecogniz ed section and content) ReasonCommentsProcedureSpecialtyDiagnoses / ProceduresReferred By Contact Referred To ContactENT-OTOLARYNGOLOGY 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 Renewal medical botox Procedures CHEMODNRVEL [facility] INNERVATED FACIAL NRV UNIL BOTULINUM TOXIN A PER 1 UNIT Med botox 100 units every 3-4 months for 1 year Elizabeth Balbuena MD [address] [id number] Elizabeth Balbuena MD [address] [place] [address] Referral IDStatusReasonStart DateExpiration DateVisits RequestedVisits [id number]/13/202312/31/[id number] nerve spasmFacial nerve spasm, BotoxSpecialtyDiagnoses / ProceduresReferred By Contact Referred To Contact[facility] / ENT-FACIAL PLASTICS Diagnoses 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, unspecified Alcala's palsy Repeat medical botox injections Procedures BOTULINUM TOXIN A PER 1 UNIT CHEMODNRVEL [facility] INNERVATED FACIAL NRV UNIL RENEWAL REQUEST INJECTABLE (100 UNITS EVERY 3-4 MONTHS FOR 1 YR) [place] [address] [place] [address] Elizabeth Balbuena MD [address] [place] [address] Referral IDStatusReasonStart DateExpiration DateVisits RequestedVisits [id number]/27/20224/7/[id number] Problem ReasonCommentsResultsReasonCommentsBotox InjectionReferral IDStatusReasonStart DateExpiration DateVisits RequestedVisits [id number] Review [id number] UpBotoxReferral IDStatusReasonStart DateExpiration DateVisits RequestedVisits [id number]/13/[id number] NeuralgiaMigraineStrokeReasonCommentsNew Patient VisitAbnormal EKGSpecialtyDiagnoses / ProceduresReferred By Contact Referred To Contact Diagnoses Preoperative cardiovascular examination Procedures ECG 12 Lead Елена Griffin MD [address] [facility] [address] [place] [address] Phone: tel: fax: Referral IDStatusReasonStart DateExpiration DateVisits RequestedVisits [id number]/8/202411/8/573352BwllbaBiiswwavVplwxncdm XRReason CommentsNewPainReasonCommentsTumor/MassPainNewReasonCommentsRadio Gen A21 SpecialtyDiagnoses / ProceduresReferred By ContactReferred To ContactXR IMAGING Diagnoses Pain in right hip Thyroid nodule Thyroid nodule greater than or equal to 1 cm in diameter incidentally noted on imaging study Procedures XR HIP GENERAL 3V PELV/AP/LAT RIGHT RADEX HIP UNILATERAL WITH PELVIS 2-3 VIEWS Darian Barclay, PAInnaC [address] [place] [address] [facility] [address] [place] [address] Referral IDStatusReasonStart DateExpiration DateVisits RequestedVisits [id number] Auto-Generated Referral /[id number] DateCommentsBiopsy RequestBiopsy Request 07/29/2024ReasonOnset DateCommentsRefill [id number]/11/2024ReasonComments Established PatientPainTumor/MassReasonCommentsConsultReasonCommentsPain Tumor/MassNew PatientReasonCommentsConsultReasonCommentsAppointmentReason CommentsPatient EducationSpecialtyDiagnoses / ProceduresReferred By Contact Referred To ContactOncology Diagnoses Malignant neoplasm of overlapping sites of right lung (HCC) Procedures CONSULT TO ONCOLOGY OFFICE/OUTPATIENT [facility] 60 MINUTES Sarabjit Crowley DO [address] [place] [address] Referral IDStatusReasonStart DateExpiration DateVisits RequestedVisits [id number] PCP Requested Referral [id number]NtcydesnNvzle Time Treatment Education ReasonCommentsCare CoordinationpainReasonCommentsMedication ProblemReason CommentsCare CoordinationTreatment prepReasonCommentsBenefits InvestigationGood ,I am your Financial Navigator, Paulina. I wanted to reach out and introduce myself. I welcome the opportunity to meet with you as I can answer questions related to your health plan and any expected out of pocket costs while you are in treatment.You will also find a survey attached to this message that can help me better serve your financial needs. You can complete this at your earliest convenience. Please feel free to stop in or call [phone] for any questions you may have. IReasonCommentsCare CoordinationReasonCommentsCare CoordinationClinical updateReasonCommentsCare CoordinationHospital d/c follow up callReasonCommentsCare YccjerluporaC0F5 treatment follow up callReasonComments Care CoordinationRash, shortness of breathReasonCommentsNo ShowReasonComments Lung CancerReasonOnset DateCommentsConsultSimulation Request Form08/24/2024 ReasonCommentsLab OrdersReasonCommentsPalliative CareReasonCommentsPatient UpdateReasonCommentsRadiotherapy On-treatment VisitReasonCommentsTrigeminal NeuralgiaReasonCommentsLung CancerLung MassTreatment visitReasonCommentsOrders ReasonCommentsRadiology NMSpecialtyDiagnoses / ProceduresReferred By Contact Referred To ContactMOLECULAR & FUNCTIONAL IMAGING Diagnoses Metastatic cancer to bone (HCC) Malignant neoplasm of overlapping sites of right lung (HCC) Procedures NM PET/CT SKULL-THIGH SUBSEQUENT PET IMAGING CT ATTENUATION SKULL BASE MID-THIGH Isaac Gracia MD [address] [place] [address] [place] [address] Phone: tel: fax: [facility] [address] [place] [address] Phone: tel: Referral IDStatusReasonStart DateExpiration DateVisits RequestedVisits [id number] Auto-Generated Referral /[id number]vvw MalformationReasonCommentsLung CancerReasonCommentsRadiology USReasonCommentsCare CoordinationThyroid nodules SpecialtyDiagnoses / ProceduresReferred By ContactReferred To ContactMOLECULAR & FUNCTIONAL IMAGING Diagnoses Metastatic cancer to bone (HCC) Procedures NM PET/CT SKULL-THIGH SUBSEQUENT PET IMAGING CT ATTENUATION SKULL BASE MID-THIGH Isaac Gracia MD [address] [place] [address] [place] [address] Phone: tel: fax: [facility] [address] [place] [address] Phone: tel: Referral IDStatusReasonStart DateExpiration DateVisits RequestedVisits [id number] Auto-Generated Referral /[id number] AppointmentReasonCommentsMedication AuthorizationLumakrasReasonCommentsCare CoordinationMedication QuestionReason Onset DateCommentsnew problem R shoulderNew problem/SIM R shoulderSimulation Request Form02/02/2025ReasonCommentsOral Anti-cancer Agent EducationSotorasib ReasonCommentsDrug/Drug InteractionLumakras and primidoneReasonComments Medication UpdateReasonCommentsFollow UpMedical botoxSpecialtyDiagnoses / ProceduresReferred By ContactReferred To ContactENT-OTOLARYNGOLOGY 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 Procedures BOTULINUM TOXIN A PER 1 UNIT CHEMODNRVTJ [facility] MUSC INNERVATED FACIAL NRV UNIL Elizabeth Balbuena MD [address] [place] [address] Phone: tel: fax: Otolaryngology [address] [address] Phone: tel: fax: Referral IDStatusReasonStart DateExpiration DateVisits RequestedVisits [id number] CoordinationFuture AppointmentReasonOnset DateCommentsRefill Rcuympk4302/03/2025ReasonComments Thyroid NoduleFollow Up Care Teams (unrecognized sec tion and content) Team Status: Active Member Role Status Dates Asya Clements JR DO Primary Care Provider Active Team Status: Inactive Member Role Status Dates Asya Clements JR DO Primary Care Provider Active Start: May 31, 2024 End: May 31, 2024Brent Jamison ProviderActiveStart: May 31, 2024 End: May 31, 2024 Team Status: Inactive Member Role Status Dates Asya Clements JR DO Primary Care Provider Active Start: June 07, 2024 End: June 07, 2024Kera Reid MDAttending ProviderActiveStart: June 07, 2024 End: June 07, 2024 Team Status: Inactive Member Role Status Dates Asya Clements JR DO Primary Care Provider Active Start: August 08, 2024 End: August 08, 2024Luis Armando Harris ProviderActiveStart: August 08, 2024 End: August 08, 2024 Team Status: Active Member Role Status Dates Asya Clements JR DO Primary Care Provider Active Start: April 27, 2024 Armen Espinoza DOAttending ProviderActiveStart: April 27, 2024 Team MemberRelationshipSpecialtyStart DateEnd Date Asya Clements Jr. [address] [facility] [address] [place] [address] PCP - General08/24/01Team MemberRelationshipSpecialtyStart DateEnd Date Asya Clements Jr. [address] [facility] [address] [place] [id number] PCP - General08/24/01Team MemberRelationshipSpecialtyStart DateEnd Date Asya Clements Jr. [address] [facility] [address] [place] [address] PCP - General08/24/01Team MemberRelationshipSpecialtyStart DateEnd Date Asya Clements Jr. [address] [facility] [address] [place] [address] PCP - General08/24/01Team MemberRelationshipSpecialtyStart DateEnd Date Asya Clements Jr. [address] [facility] [address] [place] [address] PCP - General08/24/01Team MemberRelationshipSpecialtyStart DateEnd Date Asya Clements Jr. [address] [facility] [address] [place] [address] PCP - General08/24/01 Team Status: Inactive Member Role Status Dates Asya Clements JR DO Primary Care Provider Active Start: August 24, 2023 End: August 24THAD Sweeney-Miguelina ProviderActiveStart: August 24, 2023 End: August 24, 2023 Team Status: Inactive Member Role Status Dates Asya Clements JR DO Primary Care Provider Active Start: November 03, 2023 End: November 02THAD Sweeney-Miguelina ProviderActiveStart: November 03, 2023 End: November 03, 2023Team MemberRelationshipSpecialtyStart DateEnd Date Asya Clements Jr. DO [address] [place] [address] PCP - General08/24/01Team MemberRelationshipSpecialtyStart DateEnd Date Asya Clements MD [address] [place] [address] PCP - GeneralInternal Medicine01/07/23Team MemberRelationshipSpecialtyStart Date End Date Asya Clements MD [address] [place] [address] PCP - GeneralInternal Medicine01/07/23Team MemberRelationshipSpecialtyStart Date End Date Asya Clements, DO PCP - General12/21/09Team MemberRelationshipSpecialtyStart DateEnd Date Asya Clements Jr., DO [address] [place] [address] PCP - General08/24/01 Asya Clements Jr., DO [address] [place] [address] ReferringInternal Lhdyagwl17/18/24Team MemberRelationshipSpecialtyStart DateEnd Date Asya Clements Jr., DO [address] [place] [address] PCP - General08/24/01 Asya Clements Jr., DO [address] [place] [address] ReferringInternal Jiixream55/18/24Team MemberRelationshipSpecialtyStart DateEnd Date Asya Clements Jr., DO [address] [place] [address] PCP - General08/24/01 Asya Clements Jr., DO [address] [place] [address] ReferringInternal Ynmvukfc76/18/24Team MemberRelationshipSpecialtyStart DateEnd Date Asya Clements Jr., DO [address] [place] [address] PCP - General2 Asya Clements Jr., DO [address] [place] [address] ReferringInternal Blvihmye77/18/24Te MemberRelationshipSpecialtyStart DateEnd Date Asya Clements Jr., DO [address] [place] [address] [facility] - General08/24/01 Asya Clements Jr., DO [address] [place] [address] ReferringInternal Jejwdyyt98/18/24Team MemberRelationshipSpecialtyStart DateEnd Date Asya Clements Jr., DO [address] [place] [address] PCP - General08/24/01 Asya Clements Jr., DO [address] [place] [address] ReferringInternal Xjhzjcta70/18/24Team MemberRelationshipSpecialtyStart DateEnd Date Asya Clements Jr., DO [address] [place] [address] PCP - General08/24/01 Asya Clements Jr., DO [address] [place] [address] ReferringInternal Bjopcmat75/18/24Team MemberRelationshipSpecialtyStart DateEnd Date Asya Clements Jr., DO [address] [place] [address] PCP - General08/24/01 Asya Clements Jr., DO [address] [place] [address] ReferringInternal Gamfescj29/18/24Team MemberRelationshipSpecialtyStart DateEnd Date Asya Clements Jr., DO [address] [place] [address] PCP - General08/24/01 Asya Clements Jr., DO [address] [place] [address] ReferringInternal Endvkscj29/18/24 Team Status: Inactive Member Role Status Dates Asya Clements JR DO Primary Care Provider Active Start: August 09, 2024 End: August 09, 2024THAD Harris-CAttending ProviderActiveStart: August 09, 2024 End: August 09, 2024Team MemberRelationshipSpecialtyStart DateEnd Date Asya Clements Jr., DO [address] [place] [address] PCP - General08/24/01 Asya Clements Jr., DO [address] [place] [address] ReferringInternal Pqsunxto24/18/24Team MemberRelationshipSpecialtyStart DateEnd Date Asya Clements Jr., DO [address] [place] [address] PCP - General2 Asya Clements Jr., DO [address] [place] [address] ReferringInternal Johnvyto07/18/24Te MemberRelationshipSpecialtyStart DateEnd Date Asya Clements Jr., DO [address] [place] [address] PCP - General08/24/01 Asya Clements Jr., DO [address] [place] [address] ReferringInternal Xjvjqxxl42/18/24Te MemberRelationshipSpecialtyStart DateEnd Date Asya Clements Jr., DO [address] [place] [address] PCP - General08/24/01 Asya Clements Jr., DO [address] [place] [address] ReferringInternal Aixisnxf03/18/24Te MemberRelationshipSpecialtyStart DateEnd Date Asya Clements Jr., DO [address] [place] [address] PCP - General2 Asya Clements Jr., DO [address] [place] [address] ReferringInternal Huwokzte10/18/24Team MemberRelationshipSpecialtyStart DateEnd Date Asya Clements Jr., DO [address] [place] [address] PCP - General2 Asya Clements Jr., DO [address] [place] [address] ReferringInternal Lepmjkms09/18/24Team MemberRelationshipSpecialtyStart DateEnd Date Asya Clements Jr., DO [address] [place] [address] PCP - General08/24/01 Asya Clements Jr., DO [address] [place] [address] ReferringInternal Jsyhiqsm10/18/24Team MemberRelationshipSpecialtyStart DateEnd Date Asya Clements Jr., DO [address] [place] [address] PCP - General2 Asya Clements Jr., DO [address] [place] [address] ReferringInternal Bbkiniut93/18/24Team MemberRelationshipSpecialtyStart DateEnd Date Asya Clements Jr., DO [address] [place] [address] PCP - General08/24/01 Asya Clements Jr., DO [address] [place] [address] ReferringInternal Dzxvicin07/18/24Te MemberRelationshipSpecialtyStart DateEnd Date Asya Clements Jr., DO [address] [place] [address] PCP - General08/24/01 Asya Clements Jr., DO [address] [place] [address] ReferringInternal Vatttqjv83/18/24Te MemberRelationshipSpecialtyStart DateEnd Date Asya Clements Jr., DO [address] [place] [address] PCP - General08/24/01 Asya Clements Jr., DO [address] [place] [address] ReferringInternal Qkxuorpw49/18/24Te MemberRelationshipSpecialtyStart DateEnd Date Asya Clements Jr., DO [address] [place] [address] PCP - General08/24/01 Asya Clements Jr., DO [address] [place] [address] ReferringInternal Vurabmia72/18/24 Ghislaine Thakur RN [address] [facility] [place] [address] Specialty Care CoordinatorHematology/Oncology08/31/24 Isaac Gracia MD [address] [place] [place] [address] PhysicianHematology/Oncology08/31/24 Vincent Estrada [employer].KNIFER UP [address] [facility] [place] [address] Hospice & Palliative Medicine08/31/24 Jazmyne Bryson RN Specialty Care CoordinatorHospice & Palliative Medicine08/31/24Team Member RelationshipSpecialtyStart DateEnd Date Asya Clements Jr., DO [address] [facility] [place] [address] PCP - General08/24/01 Asya Clements Jr., DO [address] [facility] [place] [address] ReferringInternal Lltvxnts15/18/24 Ghislaine Thakur RN [address] [place] [address] Specialty Care CoordinatorHematology/Oncology08/31/24 Isaac Gracia MD [address] [facility] [address] PhysicianHematology/Oncology08/31/24 Vincent Estrada APRN.KNIFER UP [address] [place] [address] Hospice & Palliative Medicine08/31/24 Braydon, Jazmyne L, RN Specialty Care CoordinatorHospice & Palliative Medicine08/31/24Team Member RelationshipSpecialtyStart DateEnd Date Asya Clements Jr., DO [address] [facility] [place] [address] PCP - General08/24/01 Asya Clements Jr., DO [facility]3 [facility] [place] [address] ReferringInternal Mgxlxpal05/18/24 Ghislaine Thakur RN [address] [place] [address] [place] [address] Specialty Care CoordinatorHematology/Oncology08/31/24 Isaac Gracia MD [address] [place] [address] [place] [address] PhysicianHematology/Oncology08/31/24 Vincent Estrada APRN.KNIFER UP [address] [place] [address] [place] [address] Hospice & Palliative Medicine08/31/24 Jazmyne Bryson RN Specialty Care CoordinatorHospice & Palliative Medicine08/31/24Team Member RelationshipSpecialtyStart DateEnd Date Asya Clements Jr., DO [facility]3 [facility] [place] [address] PCP - General08/24/01 Asya Clements Jr., DO [facility]3 [facility] [place] [address] ReferringInternal Oduqzobt88/18/24 Ghislaine Thakur RN [address] [facility] [place] [address] Specialty Care CoordinatorHematology/Oncology2/12/25 Isaac Gracia MD [address] [place] [address] PhysicianHematology/Oncology08/31/24 Vincent Estrada [employer] [place].KNIFER UP [address] [place] [address] Hospice & Palliative Medicine08/31/24 Jazmyne Bryson RN Specialty Care CoordinatorHospice & Palliative Medicine08/31/24Team Member RelationshipSpecialtyStart DateEnd Date Asya Clements Jr., DO [address] [place] [address] PCP - General08/24/01 Asya Clements Jr., DO [address] [place] [address] ReferringInternal Kcmudvan53/18/24 Ghislaine Thakur RN [address] [place] [address] Specialty Care CoordinatorHematology/Oncology08/31/24 Isaac Gracia MD [address] [facility] [place] [address] PhysicianHematology/Oncology08/31/24 Vincent Estrada [employer] [place].KNIFER UP [address] [place] [address] Hospice & Palliative Medicine08/31/24 Jazmyne Bryson RN Specialty Care CoordinatorHospice & Palliative Medicine08/31/24 Team Status: Inactive Member Role Status Dates Asya Clements JR DO Primary Care Provider Active Start: September 01, 2024 End: September 01, 2024Nikolayosvaldo Crowley Attending ProviderActiveStart: September 01, 2024 End: September 01, 2024Team MemberRelationshipSpecialtyStart DateEnd Date Asya Clements Jr., DO [address] [place] [address] PCP - General08/24/01 Asya Clements Jr., DO [address] [place] [address] ReferringInternal Sxtdddlz46/18/24 Ghislaine Thakur RN [address] [place] [address] [place] [address] Specialty Care CoordinatorHematology/Oncology08/31/24 Isaac Gracia MD [address] [place] [address] [place] [address] PhysicianHematology/Oncology08/31/24 Vincent Estrada APRN.KNIFER UP [address] [place] [address] [place] [address] Hospice & Palliative Medicine08/31/24 Jazmyne Bryson RN Specialty Care CoordinatorHospice & Palliative Medicine08/31/24Team Member RelationshipSpecialtyStart DateEnd Date Asya Clements Jr., DO [address] [place] [address] PCP - General08/24/01 Asya Clements Jr., DO [address] [place] [address] ReferringInternal Gwgtevdv80/18/24 Ghislaine Thakur MEKHI [address] [place] [address] [place] [address] Specialty Care CoordinatorHematology/Oncology08/31/24 Isaac Gracia MD [address] [place] [place] [address] PhysicianHematology/Oncology08/31/24 Vincent Estrada, SURESH.KNIFER UP [address] [facility] [place] [address] Hospice & Palliative Medicine08/31/24 Jazmyne Bryson RN Specialty Care CoordinatorHospice & Palliative Medicine08/31/24 Team Status: Active Member Role Status Dates Asya Clements JR DO Primary Care Provider Active Start: September 07, 2024 Deana Tony ProviderActiveStart: September 07, 2024 Enmanuel Khanna Provider, Attending ProviderActiveStart: September 07, 2024 Team Status: Inactive Member Role Status Dates Asya Clements JR DO Primary Care Provider Active Start: September 07, 2024 End: September 12, 2024Deana Tony ProviderActiveStart: September 07, 2024 End: September 12ndEnmanuel Renee ProviderActiveStart: September 07, 2024 End: September 12, 2024Surjit Cuevasending ProviderActiveStart: September 07, 2024 End: September 12, 2024Elizabeth Elizabeth MDOther ProviderActiveStart: September 07, 2024 End: September 12, 2024Mariah Patel MDOther ProviderActiveStart: September 07, 2024 End: September 12, 2024Miguel Taveras MDOther ProviderActiveStart: September 07, 2024 End: September 12, 2024Hannah Moran ProviderActiveStart: September 07, 2024 End: September 12enedivicki Alvarez Jr, DOOther ProviderActiveStart: September 07, 2024 End: September 12damon Burt MDOther ProviderActiveStart: September 07, 2024 End: September 12gabriela Day MDOther ProviderActiveStart: September 07, 2024 End: September 12, 2024G. Elias Smart MDOther ProviderActiveStart: September 07, 2024 End: September 12, 2024Juan C Schreiber MDOther ProviderActiveStart: September 07, 2024 End: September 12, 2024Vicki Soriano NP-COther ProviderActiveStart: September 07, 2024 End: September 12brandie Adames MDOther ProviderActiveStart: September 07, 2024 End: September 12, 2024Rodolfo Valdez MDOther ProviderActiveStart: September 07, 2024 End: September 12, 2024 Team Status: Active Member Role Status Dates Asya Clements JR DO Primary Care Provider Active Start: September 09, 2024 Deana Tony ProviderActiveStart: September 09, 2024 Enmanuel Khanna ProviderActiveStart: September 09, 2024 Pedro Cuevas ProviderActiveStart: September 09, 2024 Elizabeth Elizabeth MDOther ProviderActiveStart: September 09, 2024 Mariah Patel MDOther ProviderActiveStart: September 09, 2024 Miguel Taveras MDAttending Provider, Other ProviderActiveStart: September 09, 2024 Abimbola Nesbitt , APRNOther ProviderActiveStart: September 09, 2024 [place] Roman Alvarez Jr, DOOther ProviderActiveStart: September 09, 2024 Eyal Burt MDOther ProviderActiveStart: September 09, 2024 Team Status: Active Member Role Status Dates Asya Clements JR DO Primary Care Provider Active Start: September 09, 2024 Deana Tony ProviderActiveStart: September 09, 2024 Enmanuel Khanna ProviderActiveStart: September 09, 2024 Agatha Martinez MDOther ProviderActiveStart: September 09, 2024 Elizabeth Elizabeth MDAttending Provider, Other ProviderActiveStart: September 09, 2024 Mariah Patel MDOther ProviderActiveStart: September 09, 2024 Miguel Taveras MDOther ProviderActiveStart: September 09, 2024 Abimbola Nesbitt APRNOther ProviderActiveStart: September 09, 2024 Jair Alvarez Jr DOOther ProviderActiveStart: September 09, 2024 Eyal Brut MDOther ProviderActiveStart: September 09, 2024 Clovis Day MDOther ProviderActiveStart: September 09, 2024 Taylor Smart MDOther ProviderActiveStart: September 09, 2024 Juan C Schreiber MDOther ProviderActiveStart: September 09, 2024 Vicki Soriano NP-COther ProviderActiveStart: September 09, 2024 Danny Adames MDOther ProviderActiveStart: September 09, 2024 Rodolfo Valdez MDOther ProviderActiveStart: September 09, 2024 Team MemberRelationshipSpecialtyStart DateEnd Date Asya Clements Jr., DO [address] [place] [address] PCP - General08/24/01 Asya Clements Jr., DO [address] [place] [address] ReferringIntercritical access hospital Korozsum94/18/24 Ghislaine Thakur RN [address] [facility] [place] [address] Specialty Care CoordinatorHematology/Oncology08/31/24 Isaac Gracia MD [address] [place], [place] [address] [address] PhysicianHematology/Oncology08/31/24 Vincent Estrada APRN.KNIFER UP [address] [place] [address] [place] [address] Hospice & Palliative Medicine08/31/24 Jazmyne Bryson RN Specialty Care CoordinatorHospice & Palliative Medicine08/31/24Team Member RelationshipSpecialtyStart DateEnd Date Asya Clements Jr., DO [address] [place] [address] PCP - General08/24/01 Asya Clements Jr., DO [address] [facility] [place] [address] ReferringInternal Xoigsfmh93/18/24 Ghislaine Thakur RN [address] [place] [address] [place] [address] Specialty Care CoordinatorHematology/Oncology08/31/24 Isaac Gracia MD [address] [place] [address] [place] [address] PhysicianHematology/Oncology08/31/24 Vincent Estrada APRN.KNIFER UP [address] [facility] [place] [address] Hospice & Palliative Medicine08/31/24 Jazmyne Bryson RN Specialty Care CoordinatorHospice & Palliative Medicine08/31/24Team Member RelationshipSpecialtyStart DateEnd Date Asya Clements Jr., DO [address] [place] [address] PCP - General08/24/01 Asya Clements Jr., DO [address] [facility] [place] [address] ReferringInternal Jpvjrkbu92/18/24 Ghislaine Thakur RN [address] [facility] [place] [address] Specialty Care CoordinatorHematology/Oncology08/31/24 Isaac Gracia MD [address] [place] [place] [address] PhysicianHematology/Oncology08/31/24 Vincent Estrada [employer].KNIFER UP [address] [facility] [place] [address] Hospice & Palliative Medicine08/31/24 Jazmyne Bryson RN Specialty Care CoordinatorHospice & Palliative Medicine08/31/24Team Member RelationshipSpecialtyStart DateEnd Date Asya Clements Jr., DO [facility]3 [place] [address] [facility] - General08/24/01 Asya Clements Jr., DO [facility]3 [facility] [place] [address] ReferringInternal Oydchzmy92/18/24 Ghislaine Thakur RN [address] [facility] [place] [address] Specialty Care CoordinatorHematology/Oncology08/31/24 Isaac Gracia MD [address] [facility] [place] [address] PhysicianHematology/Oncology08/31/24 Vincent Estrada, [employer].KNIFER UP [address] [facility] [place] [address] Hospice & Palliative Medicine08/31/24 Braydon, Jazmyne L, RN Specialty Care CoordinatorHospice & Palliative Medicine08/31/24Team Member RelationshipSpecialtyStart DateEnd Date Asya Clements Jr., DO [address] [place] [address] PCP - General08/24/01 Asya Clements Jr., DO [address] [place] [address] ReferringInternal Kvcojhmv15/18/24 Ghislaine Thakur RN [address] [place] [address] [place] [address] Specialty Care CoordinatorHematology/Oncology08/31/24 Isaac Gracia MD [address] [place] [place] [address] PhysicianHematology/Oncology08/31/24 Vincent Estrada APRN.KNIFER UP [address] [facility] [place] [address] Hospice & Palliative Medicine08/31/24 Jazmyne Bryson RN Specialty Care CoordinatorHospice & Palliative Medicine08/31/24Team Member RelationshipSpecialtyStart DateEnd Date Asya Clements Jr., DO [address] [place] [address] PCP - General08/24/01 Asya Clements Jr., DO [address] [facility] [place] [address] ReferringInternal Urpxvmvc50/18/24Team MemberRelationshipSpecialtyStart DateEnd Date Asya Clements Jr., DO [address] [facility] [place] [place] [address] PCP - General08/24/01 Asya Clements Jr., DO [facility] [place] [address] ReferringInternal Qcmbotzv44/18/24 Ghislaine Thakur RN [address] [facility] [place] [address] Specialty Care CoordinatorHematology/Oncology08/31/24 Isaac Gracia MD [address] [place] [place] [address] PhysicianHematology/Oncology08/31/24 Vincent Estrada APRN.KNIFER UP [address] [facility] [place] [address] Hospice & Palliative Medicine08/31/24 Jazmyne Bryson RN Specialty Care CoordinatorHospice & Palliative Medicine08/31/24Team Member RelationshipSpecialtyStart DateEnd Date Asya Clements Jr., DO [facility] [place] [address] PCP - General08/24/01 Asya Clements Jr., DO [facility] [place] [address] ReferringInternal Fgknekfa35/18/24 Ghislaine Thakur RN [address] [facility] [place] [address] Specialty Care CoordinatorHematology/Oncology08/31/24 Isaac Gracia MD [address] [place] [place] [address] PhysicianHematology/Oncology08/31/24 Vincent Estrada, [employer].KNIFER UP [address] [facility] [place] [address] Hospice & Palliative Medicine08/31/24 Jazmyne Bryson RN Specialty Care CoordinatorHospice & Palliative Medicine08/31/24Team Member RelationshipSpecialtyStart DateEnd Date Asya Clements Jr., DO [facility]3 [facility] [place] [address] [facility] - General08/24/01 Asya Clements Jr., DO [address] [place] [address] [place] [address] ReferringInternal Qdvdqhit88/18/24 Ghislaine Thakur RN [address] [facility] [place] [address] Specialty Care CoordinatorHematology/Oncology08/31/24 Isaac Gracia MD [address] [place] [address] [place] [address] PhysicianHematology/Oncology08/31/24 Vincent Estrada, [employer].KNIFER UP [address] [facility] [place] [address] Hospice & Palliative Medicine08/31/24 Jazmyne Bryson, RN Specialty Care CoordinatorHospice & Palliative Medicine08/31/24 Danielle Castellon LSW Social Worker09/29/24Team MemberRelationshipSpecialtyStart DateEnd Date Asya Clements Jr., DO [address] [place] [address] [place] [address] PCP - General08/24/01 Asya Clements Jr., DO [facility] [place] [address] ReferringInternal Rkzivurb67/18/24 Ghislaine Thakur RN [address] [facility] [place] [address] Specialty Care CoordinatorHematology/Oncology08/31/24 Isaac Gracia MD [address] [facility] [place] [address] PhysicianHematology/Oncology08/31/24 Vincent Estrada APRN.KNIFER UP [address] [facility] [place] [address] Hospice & Palliative Medicine08/31/24 Jazmyne Bryson RN Specialty Care CoordinatorHospice & Palliative Medicine08/31/24 Danielle Castellon LSW Social Worker09/29/24Team MemberRelationshipSpecialtyStart DateEnd Date Asya Clements Jr., DO [facility] [place] [address] PCP - General08/24/01 Asya Clements Jr., DO [address] [place] [address] [place] [address] ReferringInternal Xainluoy16/18/24 Ghislaine Thakur RN [address] [facility] [place] [address] Specialty Care CoordinatorHematology/Oncology08/31/24 Isaac Gracia MD [address] [facility] [facility] [place] [address] PhysicianHematology/Oncology08/31/24 Vincent Estrada APRN.KNIFER UP [address] [place] [address] [place] [address] Hospice & Palliative Medicine08/31/24 Jazmyne Bryson RN Specialty Care CoordinatorHospice & Palliative Medicine08/31/24 Danielle Castellon LSW Social Worker09/29/24Team MemberRelationshipSpecialtyStart DateEnd Date Asya Clements MD 12[address] [facility] [place], [place] [address] PCP - GeneralInternal Medicine01/07/23 Shasta Wade PA [address] [facility] [address] [place] [address] Physician AssistantNeurology10/10/24Team MemberRelationshipSpecialtyStart DateEnd Date Asya Clements Jr., DO [address] [facility] [place] [place] [address] PCP - General08/24/01 Asya Clements Jr., DO [address] [facility] [place] [address] ReferringInternal Aqgairnq32/18/24 Ghislaine Thakur RN [address] [place] [address] [place] [address] Specialty Care CoordinatorHematology/Oncology08/31/24 Isaac Gracia MD [address] [place] [address] [place] [address] PhysicianHematology/Oncology08/31/24 Vincent Estrada APRN.KNIFER UP [address] [facility] [place] [address] Hospice & Palliative Medicine08/31/24 Jazmyne Bryson RN Specialty Care CoordinatorHospice & Palliative Medicine08/31/24 Danielle Castellon LSW Social Worker09/29/24Team MemberRelationshipSpecialtyStart DateEnd Date Asya Clements Jr., DO [facility]3 [facility] [address] PCP - General08/24/01 Asya Clements Jr., DO [facility] [place] [address] ReferringInternal Schluyos70/18/24 Ghislaine Thakur RN [address] [place] [place] [address] Specialty Care CoordinatorHematology/Oncology08/31/24 Isaac Gracia MD [address] [place] [place] [address] PhysicianHematology/Oncology08/31/24 Vincent Estrada, [employer].KNIFER UP [address] [place] [place] [address] Hospice & Palliative Medicine08/31/24 Jazmyne Bryson RN Specialty Care CoordinatorHospice & Palliative Medicine08/31/24 Danielle Castellon LSW Social Worker09/29/24Team MemberRelationshipSpecialtyStart DateEnd Date Asya Clements Jr., DO [address] [place] [address] [place] [address] PCP - General08/24/01 Asya Clements Jr., DO [facility] [place] [address] ReferringInternal Bsfjfpmf20/18/24 Ghislaine Thakur, RN [address] [place] [address] Specialty Care CoordinatorHematology/Oncology08/31/24 Isaac Gracia MD [address] [place] [place] [address] PhysicianHematology/Oncology08/31/24 Vincent Estrada APRN.KNIFER UP [address] [place] [place] [address] Hospice & Palliative Medicine08/31/24 Jazmyne Bryson RN Specialty Care CoordinatorHospice & Palliative Medicine08/31/24 Danielle Castellon LSW Social Worker09/29/24Team MemberRelationshipSpecialtyStart DateEnd Date Asya Clements Jr., DO [facility] [place] [address] PCP - General08/24/01 Asya Clements Jr., DO [facility] [place] [address] ReferringInternal Valgsxzy15/18/24 Ghislaine Thakur RN [address] [place] [address] Specialty Care CoordinatorHematology/Oncology08/31/24 Isaac Gracia MD [address] [place] [place] [address] PhysicianHematology/Oncology08/31/24 Vincent Estrada, [employer] U[employer] LININGS.KNIFER UP [address] [place] [place] [address] Hospice & Palliative Medicine08/31/24 Jazmyne Bryson RN Specialty Care CoordinatorHospice & Palliative Medicine08/31/24 Danielle Castellon LSW Social Worker09/29/24Team MemberRelationshipSpecialtyStart DateEnd Date Asya Clements Jr., DO [facility]3 [facility] [place] [address] PCP - General08/24/01 Asya Clements Jr., DO [address] [place] [address] [place] [address] ReferringInternal Xgqibvgb44/18/24 Ghislaine Thakur RN [address] [place] [place] [address] Specialty Care CoordinatorHematology/Oncology08/31/24 Isaac Gracia MD [address] [place] [address] [place] [address] PhysicianHematology/Oncology08/31/24 Vincent Estrada, [employer]INGS.KNIFER UP [address] [place] [address] Hospice & Palliative Medicine08/31/24 Jazmyne Bryson RN Specialty Care CoordinatorHospice & Palliative Medicine08/31/24 Danielle Castellon LSW Social Worker09/29/24Team MemberRelationshipSpecialtyStart DateEnd Date Asya Clements Jr., DO [address] [place] [address] [place] [address] PCP - General08/24/01 Asya Clements Jr., DO [address] [place] [address] ReferringInternal Rsdcligp77/18/24 Ghislaine Thakur, RN [address] [place] [address] Specialty Care CoordinatorHematology/Oncology08/31/24 Isaac Gracia MD [address] [place] [place] [address] PhysicianHematology/Oncology08/31/24 Vincent Estrada APRN.KNIFER UP [address] [place] [place] [address] Hospice & Palliative Medicine08/31/24 Jazmyne Bryson RN Specialty Care CoordinatorHospice & Palliative Medicine08/31/24 Danielle Castellon LSW Social Worker09/29/24 Team Status: Inactive Member Role Status Dates Asya Clements JR DO Primary Care Pr ovidmargret, Attending Provider Active Start: November 08, 2024 End: November 08, 2024Team MemberRelationshipSpecialtyStart DateEnd Date Asya Clements Jr., DO [address] [facility] [place] [address] PCP - General08/24/01 Asya Clements Jr., DO [address] [facility] [place] [address] ReferringInternal Pjzpmjdh20/18/24 Ghislaine Thakur, MEKHI [address] [place] [address] Specialty Care CoordinatorHematology/Oncology08/31/24 Isaac Gracia MD [address] [place] [address] [place] [address] PhysicianHematology/Oncology08/31/24 Vincent Estrada APRN.KNIFER UP [address] [place] [address] [place] [phone] Hospice & Palliative Medicine08/31/24 Jazmyne Bryson RN Specialty Care CoordinatorHospice & Palliative Medicine08/31/24 Danielle Castellon LSW Social Worker09/29/24Team MemberRelationshipSpecialtyStart DateEnd Date Asya Clements MD [address] [place] [address] PCP - GeneralInternal Medicine01/07/23 Shasta Waed PA [address] [facility] [address] [place] [address] Physician AssistantNeurology10/10/24Team MemberRelationshipSpecialtyStart DateEnd Date Asya Clements MD [address] [place] [phone] PCP - GeneralInternal Medicine01/07/23 Shasta Wade PA [address] [facility] [address] [place] [address] Physician AssistantNeurology10/10/24Team MemberRelationshipSpecialtyStart DateEnd Date Asya Clements Jr., DO [facility]3 [place] [address] PCP - General08/24/01 Asya Clements Jr., DO [facility] [place] [address] ReferringInternal Mcdwpsbn86/18/24 Ghislaine Thakur RN [address] [place] [address] Specialty Care CoordinatorHematology/Oncology08/31/24 Isaac Gracia MD [address] [place] [address] PhysicianHematology/Oncology08/31/24 Vincent Estrada APRN.KNIFER UP [address] [place] [address] Hospice & Palliative Medicine08/31/24 Jazmyne Bryson RN Specialty Care CoordinatorHospice & Palliative Medicine08/31/24 Danielle Castellon LSW Social Worker09/29/24Team MemberRelationshipSpecialtyStart DateEnd Date Asya Clements Jr., DO [address] [place] [address] [facility] - General08/24/01 Asya Clements Jr., DO [facility] [place] [address] ReferringInternal Bvoernpd04/18/24 Ghislaine Thakur RN [address] [facility] [place] [address] Specialty Care CoordinatorHematology/Oncology08/31/24 Isaac Gracia MD [address] [facility] [place] [address] PhysicianHematology/Oncology08/31/24 Vincent Estrada APRN.KNIFER UP [address] [place] [address] Hospice & Palliative Medicine08/31/24 Jazmyne Bryson, RN Specialty Care CoordinatorHospice & Palliative Medicine08/31/24 Danielle Castellon LSW Social Worker09/29/24Team MemberRelationshipSpecialtyStart DateEnd Date Asya Clements Jr., DO [address] [place] [address] [place] [address] PCP - General08/24/01 Asya Clements Jr., DO [address] [place] [address] [place] [address] ReferringInternal Ylxsgkhk90/18/24 Ghislaine Thakur RN [address] [place] [address] Specialty Care CoordinatorHematology/Oncology08/31/24 Isaac Gracia MD [address] [place] [address] [place] [address] PhysicianHematology/Oncology08/31/24 Vincent Estrada APRN.KNIFER UP [address] [place] [address] Hospice & Palliative Medicine08/31/24 Jazmyne Bryson RN Specialty Care CoordinatorHospice & Palliative Medicine08/31/24 Danielle Castellon LSW Social Worker09/29/24Team MemberRelationshipSpecialtyStart DateEnd Date Asya Clements Jr., DO [address] [place] [address] [place] [address] PCP - General08/24/01 Asya Clements Jr., DO [address] [place] [address] ReferringInternal Ysvyxqbm21/18/24 Ghislaine Thakur, MEKHI [address] [place] [address] Specialty Care CoordinatorHematology/Oncology08/31/24 Isaac Gracia MD [address] [place] [address] [place] [address] PhysicianHematology/Oncology08/31/24 Vincent Estrada APRN.KNIFER UP [address] [place] [address] [place] [address] Hospice & Palliative Medicine08/31/24 Jazmyne Bryson RN Specialty Care CoordinatorHospice & Palliative Medicine08/31/24 Danielle Castellon LSW Social Worker09/29/24Team MemberRelationshipSpecialtyStart DateEnd Date Asya Clements Jr., DO [facility] [place] [address] PCP - General08/24/01 Asya Clements Jr., DO [facility] [place] [address] ReferringInternal Ubkzoble78/18/24 Ghislaine Thakur, MEKHI [address] [place] [place] [address] Specialty Care CoordinatorHematology/Oncology08/31/24 Isaac Gracia MD [address] [place] [address] [place] [address] PhysicianHematology/Oncology08/31/24 Vincent Estrada APRN.KNIFER UP [address] [place] [address] Hospice & Palliative Medicine08/31/24 Jazmyne Bryson RN Specialty Care CoordinatorHospice & Palliative Medicine08/31/24 Danielle Castellon, LIZZY Social Worker09/29/24Team MemberRelationshipSpecialtyStart DateEnd Date Asya Clements Jr., DO [address] [facility] [place] [address] PCP - General08/24/01 Asya Clements Jr., DO [address] [facility] [place] [address] ReferringInternal Hfusoibp36/18/24 Ghislaine Thakur RN [address] [place] [place] [address] Specialty Care CoordinatorHematology/Oncology08/31/24 sIaac Gracia MD [address] [place] [address] PhysicianHematology/Oncology08/31/24 Vincent Estrada APRN.KNIFER UP [address] [place] [place] [address] Hospice & Palliative Medicine08/31/24 Jazmyne Bryson RN Specialty Care CoordinatorHospice & Palliative Medicine08/31/24 Danielle Castellon LSW Social Worker09/29/24Team MemberRelationshipSpecialtyStart DateEnd Date Asya Clements Jr., DO [address] [facility] [place] [place] [address] PCP - General08/24/01 Asya Clements Jr., DO [facility] [place] [address] ReferringInternal Cpfffdqa37/18/24 Ghislaine Thakur, RN [address] [facility] [place] [address] Specialty Care CoordinatorHematology/Oncology08/31/24 Isaac Gracia MD [address] [place] [place] [address] PhysicianHematology/Oncology08/31/24 Vincent Estrada APRN.KNIFER UP [address] [place] [place] [address] Hospice & Palliative Medicine08/31/24 Jazmyne Bryson RN Specialty Care CoordinatorHospice & Palliative Medicine08/31/24 Danielle Castellon LSW Social Worker09/29/24Team MemberRelationshipSpecialtyStart DateEnd Date Asya Clements Jr., DO [facility] [place] [address] PCP - General08/24/01 Asya Clements Jr., DO [facility] [place] [address] ReferringInternal Djmsltyg75/18/24 Ghislaine Thakur, MEKHI [address] [place] [address] Specialty Care CoordinatorHematology/Oncology08/31/24 Isaac Gracia MD [address] [place] [place] [address] PhysicianHematology/Oncology08/31/24 Vincent Estrada [employer].KNIFER UP [address] [place] [place] [address] Hospice & Palliative Medicine08/31/24 Jazmyne Bryson RN Specialty Care CoordinatorHospice & Palliative Medicine08/31/24 Danielle Castellon LSW Social Worker09/29/24Team MemberRelationshipSpecialtyStart DateEnd Date Asya Clements Jr., DO [facility]3 [facility] [place] [address] PCP - General08/24/01 Asya Clements Jr., DO [address] [place] [address] [place] [address] ReferringInternal Utcovtck24/18/24 Ghislaine Thakur RN [address] [place] [place] [address] Specialty Care CoordinatorHematology/Oncology08/31/24 Isaac Gracia MD [address] [place] [address] [place] [address] PhysicianHematology/Oncology08/31/24 Vincent Estrada, [employer].KNIFER UP [address] [place] [address] Hospice & Palliative Medicine08/31/24 Jazmyne Bryson RN Specialty Care CoordinatorHospice & Palliative Medicine08/31/24 Danielle Castellon LSW Social Worker09/29/24Team MemberRelationshipSpecialtyStart DateEnd Date Asya Clements Jr., DO [address] [place] [address] [place] [address] PCP - General08/24/01 Asya Clements Jr., DO [facility] [place] [address] ReferringInternal Aiwhwrgl93/18/24 Ghislaine Thakur, RN [address] [facility] [place] [address] Specialty Care CoordinatorHematology/Oncology08/31/24 Isaac Gracia MD [address] [facility] [place] [address] PhysicianHematology/Oncology08/31/24 Vincent Estrada APRN.KNIFER UP [address] [place] [address] Hospice & Palliative Medicine08/31/24 Jazmyne Bryson RN Specialty Care CoordinatorHospice & Palliative Medicine08/31/24 Danielle Castellon LSW Social Worker09/29/24Team MemberRelationshipSpecialtyStart DateEnd Date Asya Clements Jr., DO [facility] [place] [address] PCP - General08/24/01 Asya Clements Jr., DO [facility] [place] [address] ReferringInternal Iuzdtoml68/18/24 Ghislaine Thakur, MEKHI [address] [facility] [place] [address] Specialty Care CoordinatorHematology/Oncology08/31/24 Isaac Gracia MD [address] [facility] [place] [address] PhysicianHematology/Oncology08/31/24 Vincent Estrada, [employer]INGS.KNIFER UP [address] [place] [address] Hospice & Palliative Medicine08/31/24 Jazmyne Bryson RN Specialty Care CoordinatorHospice & Palliative Medicine08/31/24 Danielle Castellon LSW Social Worker09/29/24Team MemberRelationshipSpecialtyStart DateEnd Date Asya Clements Jr., DO [address] [place] [address] PCP - General08/24/01 Asya Clements Jr., DO [address] [place] [address] ReferringInternal Nzpabauw48/18/24 Ghislaine Thakur RN [address] [place] [place] [address] Specialty Care CoordinatorHematology/Oncology08/31/24 Isaac Gracia MD [address] [place] [address] [place] [address] PhysicianHematology/Oncology08/31/24 Vincent Estrada, [employer] LININGS.KNIFER UP [address] [place] [address] Hospice & Palliative Medicine08/31/24 Jazmyne Bryson RN Specialty Care CoordinatorHospice & Palliative Medicine08/31/24 Danielle Castellon LSW Social Worker09/29/24 Team Status: Inactive Member Role Status Dates Asya Clements JR DO Primary Care Provider Active Start: November 08, 2024 End: November 08ludin Clements JR DOAttending ProviderActiveStart: November 08, 2024 End: November 08, 2024 Team Status: Inactive Member Role Status Dates Asya Clements JR DO Primary Care Provider Active Start: February 02, 2025 End: February 02darsh MARLON Graciattcarly ProviderActiveStart: February 02, 2025 End: February 02, 2025 Team Status: Active Member Role Status Dates Asya Clements JR DO Primary Care Provider Active Start: February 06, 2025 Ghislaine Oseguera ProviderActiveStart: February 06, 2025 Team Status: Inactive Member Role Status Dates Asya Clements JR DO Primary Care Provider Active Start: February 06, 2025 End: February 06, 2025Ayesha Foote APRN-FNP-CAttending ProviderActiveStart: February 06, 2025 End: February 06, 2025Team MemberRelationshipSpecialtyStart DateEnd Date Asya Clements Jr., DO [address] [facility] [place] [address] PCP - General08/24/01 Asya Clements Jr., DO [facility]3 [facility] [place] [address] ReferringInternal Qrtrqgpy08/18/24 Ghislaine Thakur RN [address] [place] [address] [place] [address] Specialty Care CoordinatorHematology/Oncology08/31/24 Isaac Gracia MD [address] [place] [address] [place] [address] PhysicianHematology/Oncology08/31/24 Vincent Estrada APRN.KNIFER UP [address] [place] [address] [place] [address] Hospice & Palliative Medicine08/31/24 Jazmyne Bryson RN Specialty Care CoordinatorHospice & Palliative Medicine08/31/24 Danielle Castellon, LIZZY Social Worker09/29/24Team MemberRelationshipSpecialtyStart DateEnd Date Asya Clements Jr., DO [address] [place] [address] PCP - General08/24/01 Asya Clements Jr., DO [address] [place] [address] ReferringInternal Pfpmeqda68/18/24 Ghislaine Thakur RN [address] [facility] [place] [address] [place] [address] Specialty Care CoordinatorHematology/Oncology08/31/24 Isaac Gracia MD [address] [place] [address] [place] [address] PhysicianHematology/Oncology08/31/24 Vincent Estrada APRN.KNIFER UP [address] [place] [address] [place] [address] Hospice & Palliative Medicine08/31/24 Jazmyne Bryson RN Specialty Care CoordinatorHospice & Palliative Medicine08/31/24 Danielle Castellon LSW Social Worker09/29/24Team MemberRelationshipSpecialtyStart DateEnd Date Asya Clements Jr., DO [address] [place] [address] PCP - General08/24/01 Asya Clements Jr., DO [address] [place] [address] ReferringInternal Ugjwaalq76/18/24 Ghislaine Thakur RN [address] [place] [place] [address] Specialty Care CoordinatorHematology/Oncology08/31/24 Isaac Gracia MD [address] [place] [address] PhysicianHematology/Oncology08/31/24 Vincent Estrada [employer].KNIFER UP [address] [place] [place] [address] Hospice & Palliative Medicine08/31/24 Jazmyne Bryson RN Specialty Care CoordinatorHospice & Palliative Medicine08/31/24 Danielle Castellon LSW Social Worker09/29/24Team MemberRelationshipSpecialtyStart DateEnd Date Asya Clements Jr., DO [facility]3 [facility] [place] [address] PCP - General08/24/01 Asya Clements Jr., DO [address] [place] [address] [place] [address] ReferringInternal Uykpczbv17/18/24 Ghislaine Thakur RN [address] [place] [place] [address] Specialty Care CoordinatorHematology/Oncology08/31/24 Isaac Gracia MD [address] [facility] [place] [address] PhysicianHematology/Oncology08/31/24 Vincent Estrada, [employer].KNIFER UP [address] [place] [address] Hospice & Palliative Medicine08/31/24 Jazmyne Bryson RN Specialty Care CoordinatorHospice & Palliative Medicine08/31/24 Danielle Castellon LSW Social Worker09/29/24Team MemberRelationshipSpecialtyStart DateEnd Date Asya Clements Jr., DO [address] [place] [address] PCP - General08/24/01 Asya Clements Jr., DO [address] [place] [address] ReferringInternal Hvrgkkbx74/18/24 Ghislaine Thakur RN [address] [place] [address] [place] [address] Specialty Care CoordinatorHematology/Oncology08/31/24 Isaac Gracia MD [address] [place] [address] [place] [address] PhysicianHematology/Oncology08/31/24 Vincent Estrada, [employer]INGS.KNIFER UP [address] [place] [address] [place] [address] Hospice & Palliative Medicine08/31/24 Jazmyne Bryson RN Specialty Care CoordinatorHospice & Palliative Medicine08/31/24 Danielle Castellon LSW Social Worker09/29/24Team MemberRelationshipSpecialtyStart DateEnd Date Asya Clements Jr., DO [address] [place] [address] PCP - General08/24/01 Asya Clements Jr., DO [address] [place] [address] ReferringInternal Kfrnasnk04/18/24 Ghislaine Thakur RN [address] [facility] [place] [address] Specialty Care CoordinatorHematology/Oncology08/31/24 Isaca Gracia MD [address] [place] [place] [address] PhysicianHematology/Oncology08/31/24 Vincent Estrada APRN.KNIFER UP [address] [place] [place] [address] Hospice & Palliative Medicine08/31/24 Jazmyne Bryson RN Specialty Care CoordinatorHospice & Palliative Medicine08/31/24 Danielle Castellon LSW Social Worker09/29/24Team MemberRelationshipSpecialtyStart DateEnd Date Asya Clements Jr., DO [facility]3 [facility] [place] [address] PCP - General08/24/01 Asya Clements Jr., DO [facility]3 [facility] [place] [address] ReferringInternal Gydjjkot68/18/24 Ghislaine Thakur RN [address] [facility] [place] [address] Specialty Care CoordinatorHematology/Oncology08/31/24 Isaac Gracia MD [address] [facility] [place] [address] PhysicianHematology/Oncology08/31/24 Vincent Estrada APRN.KNIFER UP [address] [facility] [place] [address] Hospice & Palliative Medicine08/31/24 Jazmyne Bryson RN Specialty Care CoordinatorHospice & Palliative Medicine08/31/24 Danielle Castellon LSW Social Worker09/29/24Team MemberRelationshipSpecialtyStart DateEnd Date Asya Clements Jr., DO [address] [place] [address] PCP - General08/24/01 Asya Clements Jr., DO [address] [facility] [place] [address] ReferringInternal Fjhcoliv92/18/24 Ghislaine Thakur RN [address] [place] [address] [place], [place] [address] Specialty Care CoordinatorHematology/Oncology08/31/24 Isaac Gracia MD [address] [place] [address] [place] [address] PhysicianHematology/Oncology08/31/24 Vincent Estrada APRN.KNIFER UP [address] [place] [address] Hospice & Palliative Medicine08/31/24 Jazmyne Bryson RN Specialty Care CoordinatorHospice & Palliative Medicine08/31/24 Danielle Castellon LSW Social Worker09/29/24 INFORMATION SOURCE (unrecogn ized section and content) DATE CREATED AUTHOR 11/15/[address] [facility] DATE CREATED AUTHOR AUTHOR'S ORGANIZ ATION 05/30/2024 [facility] DATE CREATED AUTHOR AUTHOR'S ORGANIZ ATION 11/25/2024 [facility] EPIC DATE CREATED AUTHOR AUTHOR'S ORGANIZ ATION 02/11/2025 [facility] DATE CREATED AUTHOR AUTHOR'S ORGANIZ ATION 03/04/2025 [facility] DATE CREATED AUTHOR AUTHOR'S ORGANIZ ATION 05/31/2025 [facility] Goals (unrecognized section and content) Goals may [...] BE BASED ON THE PRIMARY CLINICAL RECORDS. [facility] [employer] [facility]. provides no warranty or guarantee of the accuracy or completeness of information in this document.
[2025-07-16 16:14] LABS: Basophils Abs Manual 0.11 10^3/uL (0.00-0.10); Basophils Percent Manual 2.0 % (0.2-2.0); Eosinophils Absolute Manual 0.00 10^3/uL (0.00-0.70); Eosinophils Percent Manual 0.0 % (0.9-7.0); Lymphocytes Absolute Manual 1.39 10^3/uL (1.20-3.80); Lymphocytes Percent Manual 24.0 % (20.5-60.0); Monocytes Absolute Manual 0.34 10^3/uL (0.30-0.80); Monocytes Percent Manual 6.0 % (1.7-12.0); Segmented Neut Absolute Manual 3.94 10^3/uL (1.4-6.5); Segmented Neutrophils % Manual 68.0 (43.0-75.0)
--- NOTE | 2025-07-16 18:28 | ED.GENADUL1 ---
HPI HPI - General Adult General Chief complaint: Extremity Problem, Nontraumatic Stated complaint: NEEDS HER LEG LOOKED AT Time Seen by Provider: 07/16/25 15:16 Source: patient and family Mode of arrival: Wheelchair Limitations: no limitations History of Present Illness HPI narrative: Patient is a 69-year-old female presenting to the emergency department for evaluation of left lower extremity swelling over the last few days. Patient states that whenever she started to run of chemotherapy she experiences pain and swelling in the left lower extremity. She is having similar symptoms today, however the redness and warmth were worse than it typically is. She denies injury to the leg. She denies history of DVT/PE. She does have a history of stage IV lung cancer which she is actively being treated for. She denies hemoptysis. No chest pain or shortness of breath. No fevers or chills. Related Data Home Medications ?Medication ?Instructions ?Recorded ?Confirmed cholecalciferol (vitamin D3) 25 25 mcg PO DAILY 04/27/24 07/16/25 mcg (1,000 unit) capsule fluoxetine 20 mg capsule 20 mg PO DAILY 04/27/24 07/16/25 acetaminophen 325 mg tablet 650 mg PO Q6H PRN pain 07/16/25 07/16/25 empagliflozin 10 mg tablet 10 mg PO QAM 07/16/25 07/16/25 (Jardiance) gabapentin 300 mg capsule 300 mg PO Q12H 07/16/25 07/16/25 levothyroxine 75 mcg tablet 75 mcg PO QDAY 07/16/25 07/16/25 oxycodone 10 mg tablet 10 mg PO Q4H PRN pain 07/16/25 07/16/25 Previous Rx's ?Medication ?Instructions ?Recorded benzonatate 200 mg capsule 200 mg PO TID PRN cough #20 caps 09/19/24 doxycycline hyclate 100 mg capsule 100 mg PO BID 5 days #10 caps 07/16/25 Allergies Allergy/AdvReac Type Severity Reaction Status Date / Time No Known Drug Allergies Allergy Verified 04/27/24 10:16 Review of Systems ROS Status of ROS 10 or more systems reviewed and unremarkable except as noted in history and below [facility] PFS Medical History Arthritis ?M19.90 - Unspecified osteoarthritis, unspecified site (ICD-10) Sleep disorder ?G47.9 - Sleep disorder, unspecified (ICD-10) PTSD (post-traumatic stress disorder) ?F43.10 - Post-traumatic stress disorder, unspecified (ICD-10) Panic attacks ?F41.0 - Panic disorder [episodic paroxysmal anxiety] (ICD-10) Anxiety ?F41.9 - Anxiety disorder, unspecified (ICD-10) Sleep apnea ?G47.30 - Sleep apnea, unspecified (ICD-10) Seizures ?R56.9 - Unspecified convulsions (ICD-10) Hypertension ?I10 - Essential (primary) hypertension (ICD-10) Foot drop ?M21.379 - Foot drop, unspecified foot (ICD-10) Hypothyroidism ?E03.9 - Hypothyroidism, unspecified (ICD-10) Weakness of extremity ?R29.898 - Other symptoms and signs involving the musculoskeletal system (ICD-10) Facial weakness ?R29.810 - Facial weakness (ICD-10) Cavernous hemangioma of brain ?D18.02 - Hemangioma of intracranial structures (ICD-10) Arteriovenous malformation ?Q27.30 - Arteriovenous malformation, site unspecified (ICD-10) Nerve pain ?M79.2 - Neuralgia and neuritis, unspecified (ICD-10) Hydronephrosis ?N13.30 - Unspecified hydronephrosis (ICD-10) Hyperlipidemia ?E78.5 - Hyperlipidemia, unspecified (ICD-10) Kidney stones ?N20.0 - Calculus of kidney (ICD-10) Surgical History (Updated 04/27/24 @ 10:34 by Emilia Rai NP) S/P eye surgery ?Z98.890 - Other specified postprocedural states (ICD-10) H/O eye surgery ?Z98.890 - Other specified postprocedural states (ICD-10) H/O brain surgery (~2008) ?Z98.890 - Other specified postprocedural states (ICD-10) Family History (Updated 04/27/24 @ 10:34 by Emilia Rai NP) Other Cancer Family history of hypertension Family history of myocardial infarction Family history of stroke Social History (Updated 04/27/24 @ 10:23 by Emilia Rai NP) Within the past year, how often did you have a drink containing alcohol: monthly or less Smoking status: Former smoker Non-prescribed substance use: denies use Highest level of school completed/degree received: some college, no degree Little interest or pleasure in doing things: not at all Feeling down, depressed, or hopeless: not at all Exam Narrative Exam Narrative: CONSTITUTIONAL: No acute distress, answering questions and following commands appropriately SKIN: Was warm and dry. EYES: Sclerae white. EARS, NOSE, THROAT: Moist oral mucosa. RESPIRATORY: Clear to auscultation bilaterally, no wheezes, crackles, or stridor, no use of accessory muscles CARDIOVASCULAR: Normal rate and regular rhythm. There is no S3, S4, murmur, rub. GASTROINTESTINAL: Abdomen is nondistended. MUSCULOSKELETAL: The left lower extremity is edematous compared to the right. There is 1+ pitting edema with erythema from the ankle to the mid calf. The left lower extremity is warm to the touch, no induration, only mildly tender to palpation. NEUROLOGIC: Patient is awake and alert. Equal strength and sensation light touch in the bilateral lower extremities. Facies were symmetrical. Constitutional Vital Signs, click to edit/add: Last Vital Signs Pulse 103 H 07/16/25 15:21 Resp 16 07/16/25 15:21 BP 120/74 07/16/25 15:21 Pulse Ox 94 L 07/16/25 15:21 O2 Del Method Room Air 07/16/25 15:21 Course Vital Signs Vital signs: Vital Signs Pulse Rate 103 H 07/16/25 15:21 Respiratory Rate 16 07/16/25 15:21 Blood Pressure 120/74 07/16/25 15:21 Pulse Oximetry 94 L 07/16/25 15:21 Oxygen Delivery Method Room Air 07/16/25 15:21 Pulse Rate 103 H 07/16/25 15:21 Respiratory Rate 16 07/16/25 15:21 Blood Pressure 120/74 07/16/25 15:21 Pulse Oximetry 94 L 07/16/25 15:21 Oxygen Delivery Method Room Air 07/16/25 15:21 Medical Decision Making [facility] Narrative Medical decision making narrative: Patient is a 69-year-old female, history significant for stage IV cancer currently undergoing chemotherapy, presenting to the emergency department for left lower extremity swelling, erythema, and warmth over the last few days. Her vital signs on arrival are significant for mild tachycardia, otherwise were within normal limits. She is hemodynamically stable. Examination as noted above. Clinically, the patient's leg swelling appears to be secondary to dependent edema or related to her chemotherapy as this typically happens when she gets chemo. Other differentials include cellulitis, DVT. CBC was negative for leukocytosis or worsening anemia from her baseline. D-dimer is elevated to 1.32. Bedside POCUS performed by myself was negative for acute DVT using the 3 point compression test in the left lower extremity. At this time, her presentation is likely secondary to dependent edema. However, I cannot definitively rule out cellulitis. Therefore, I prescribed her doxycycline 100 mg twice daily x 5 days for empiric coverage. Thought the qqkiw-qi-lyei ultrasound was negative for acute DVT, her D-dimer is positive and she is at risk for DVT given her history of cancer. She does have a history of prior intracranial hemorrhage in 2008, therefore I will defer from empirically treating her with anticoagulation. I did write her prescription for outpatient DVT study as there is no in-house ultrasonographers tonight. She was scheduled for tomorrow morning at 8 AM for a duplex venous ultrasound. I do believe the patient is stable for discharge. They were instructed to follow up with her outpatient physicians. Return precautions were given including any new or worsening symptoms. Patient understands and agrees to the plan. FINAL IMPRESSION: #Acute left lower extremity edema DISPOSITION: Discharged home CONDITION: Good Lab Data Lab results reviewed: Yes I reviewed the patient's lab results Labs: Lab Results 07/16/25 Range/Units 15:46 WBC 5.8 (4.0-11.0) 10^3/uL RBC 3.20 L (4.20-5.40) 10^6/uL Hgb 8.9 L (12.0-16.0) g/dL Hct 29.2 L (36.0-48.0) % MCV 91.3 (81.0-99.0) fL MCH 27.8 (26.7-34.0) pg MCHC 30.5 (29.9-35.2) g/dL RDW 17.4 H (11.0-15.0) % Plt Count 257 (150-450) 10^3/uL MPV 9.0 L (9.5-13.5) fL Seg Neuts % (Manual) 68.0 (43.0-75.0) Lymphocytes % (Manual) 24.0 (20.5-60.0) % Monocytes % (Manual) 6.0 (1.7-12.0) % Eosinophils % (Manual) 0.0 L (0.9-7.0) % Basophils % (Manual) 2.0 (0.2-2.0) % Neutrophils # (Manual) 3.94 (1.4-6.5) 10^3/uL Lymphocytes # (Manual) 1.39 (1.20-3.80) 10^3/uL Monocytes # (Manual) 0.34 (0.30-0.80) 10^3/uL Eosinophils # (Manual) 0.00 (0.00-0.70) 10^3/uL Basophils # (Manual) 0.11 H (0.00-0.10) 10^3/uL D-Dimer 1.32 H* (<=0.59) mg/L FEU Discharge Plan Discharge Chief Complaint: Extremity Problem, Nontraumatic Clinical Impression: Edema of left lower leg due to peripheral venous insufficiency Patient Disposition: Home, Self-Care Time of Disposition Decision: 16:24 Condition: Good Mode of Transportation: Private Vehicle Prescriptions / Home Meds: New doxycycline hyclate 100 mg capsule 100 mg PO BID 5 Days Qty: 10 0RF No Action benzonatate 200 mg capsule 200 mg PO TID PRN (Reason: cough) Qty: 20 0RF fluoxetine 20 mg capsule 20 mg PO DAILY cholecalciferol (vitamin D3) 25 mcg (1,000 unit) capsule 25 mcg PO DAILY levothyroxine 75 mcg tablet 75 mcg PO QDAY acetaminophen 325 mg tablet 650 mg PO Q6H PRN (Reason: pain) Jardiance 10 mg tablet 10 mg PO QAM gabapentin 300 mg capsule 300 mg PO Q12H oxycodone 10 mg tablet 10 mg PO Q4H PRN (Reason: pain) Print Language: St Helenian Instructions: Leg Edema (ED) Referrals: ASYA CLEMENTS DO [Primary Care Provider, Family Practice] - 1 week Discharge Date/Time: 07/16/25 16:59
== END 2025-07-16 16:59 | disposition home or self-care (01) ==
PROVIDERS: Emergency Provider Student in an Organized Health Care Education/Training Program; PCP Internal Medicine
DX: R60.0 Localized edema (principal); I87.2 Venous insufficiency (chronic) (peripheral); Z79.60 Long term (current) use of unspecified immunomodulators and immunosuppressants; C34.90 Malignant neoplasm of unspecified part of unspecified bronchus or lung; Z87.891 Personal history of nicotine dependence; R79.89 Other specified abnormal findings of blood chemistry
CPT/HCPCS: 36415; 85007; 85027; 85378; 99283

== ENCOUNTER 2025-07-17 07:54 | Outpatient (OUT) | payer MEDICARE, OTHER, SELFPAY ==
--- OUTSIDE RECORDS SUMMARY | 2024-07-07 08:20 | XMS_ITS ---
Author Organization The [facility] in [place] Address [address] [place] [address] Care Team Providers Care Bread Stacker Name Role Phone Gerson Gonzalez DO Primary Care Provider Unavail iDanne Connor Unavailable [phone] REASON FOR VISIT 6 week f/u Encounters Encounter Location Date Provider Diagnosis [facility] (PODIATRY) [address] [place] [address] [place] [address] 07/07/2024 Dianne Thakur Plan Of Treatment No Information Progress Notes * Ofe SARAVIA KDOB: 7 (69 yo F)Acc No.[id number]:07/07/2024 UNLOCKED PROGRESS NOTE Follow Up Patient: Marylou AMINemery Babb :?JAY JAY PulidoCDOB:1955???Age:68 Y ???Sex:FemaleDate:07/07/2024hone:[phone]:[address] Jorge Villa DrLAFAYETTE REGIONAL HEALTH CENTERUI-[address]Mjr:Gerson Gonzalez DO Subjective: * Chief Complaints: * 1 . 6 week f/u. * Medical History: Objective: * Vitals: Assessment: Plan: * Treatment: * * Electronic signature of Dianne Thakur PA-C on 07/17/2025 at 07:58 AM ESTSign off status: PendingVisit Status:?CANC (Cancelled) * Provider: Skinny Thakur PA-C Date: 09/07/2023 Generated for Printing/Faxing/eTransmitting on:?07/17/2025 07:58 AM EST
--- OUTSIDE RECORDS SUMMARY | 2025-07-05 09:20 | XMS_ITS | Encounter Summary ---
Author Organization [facility] Address [address] [place] [address] Care Team Providers Care Air Defence Officer Name Role Phone Lisa Carson DO, Charles Lewis Primary Care Provi heladio Lisa Carson DO, Charles Lewis Unavailable [phone] Ghislaine Thakur RN Unavailable [phone] Isaac Gracia MD Unavailable [phone] Dianne Keller APRN.FISCAL ACCOUNTING CLERK Unavailable + Danielle Castellon Unavailable Unavailable Ramone Marcos RN Unavailable Unava ilable Source Comments In the event this information is protected by the Federal Confidentiality of Alcohol and Drug AbusePatient Records regulations: The Federal rules restrict any use of the information to criminally investigate or prosecute any alcohol or drug abuse patient.[facility] Reason for Referral * Consult, Test, Treat (Routine) - AuthorizedSpecialtyDiagnoses / Procedures Referred By ContactReferred To Contact Diagnoses Malignant neoplasm of overlapping sites of right lung (HCC) Procedures OFFICE/OUTPATIENT NEW HIGH MDM 60 MINUTES Isaac Gracia MD [address] [place] [address] [place] [address] Phone: tel: fax: Referral IDStatusReasonStsabula DateExpiration DateVisits RequestedVisits [id number] PCP Requested Referral * MRI/CT (Routine) - New RequestSpecialtyDiagnoses / ProceduresReferred By ContactReferred To ContactMR IMAGING Diagnoses Malignant neoplasm of overlapping sites of right lung (HCC) Procedures MRI BRAIN WO/W IVCON MRI BRAIN BRAIN STEM W/O W/CONTRAST MATERIAL Isaac Gracia MD [address] [place] [address] [place] [address] Phone: tel: fax: MR IMAGING [facility] Referral IDStatusReasonFarmington DateExpiration DateVisits RequestedVisits [id number] Request Auto-Generated Referral / Encounter Details DateTypeDepartmentCare Team (Latest Contact Info)Jpfbjigvtvd21/17/2025 9:20 AM ESTVisit (SP) Office Hematology/Oncology [address] [place] [address] [place] [address] Isaac Gracia MD [address] [place] [address] [place] [address] Malignant neoplasm of overlapping sites of right lung (HCC) (Primary Dx) Social History Tobacco UseTypesPacks/DayYears UsedDateSmoking Tobacco: FormerCigarettes1.518 07/20/1981 - 07/20/1999Smokeless Tobacco: Never Tobacco Cessation:Counseling Given: Not Answered Alcohol UseStandard Drinks/WeekCommentsNo0 (1 standard drink = 0.6 oz pure alcohol)PHQ-2AnswerDate RecordedPHQ-2 mjneb034/16/2025Area Deprivation Index AnswerDate RecordedNational Score (1-100), lower number is lower risk87 04/10/2023State Score (1-10), lower number is lower fler5163Data from: https://www.neighborhoodatlas.medicine.[facility]/. Last address used for [address]CommentsNoSex and Gender Information ValueDate RecordedSex Assigned at BirthNot on fileLegal AkzNsgnxe09/02/2012 9:48 AM ESTGender LrfmqtduRakqti04/26/2022 11:07 AM EDTSexual OrientationNot on file OccupationIndustryJob Start DateJob End DatedisabledNot on fileNot on fileNot on filedocumented as of this encounter Last Filed Vital Signs Vital SignReadingTime TakenCommentsBlood Hxaykbqh857/6207/05/2025 8:56 AM EST Kpazy40273/17/2025 8:56 AM HWVUdffgppfpcs70.3 ??C (97.3 ??F)07/05/2025 8:56 AM ESTRespiratory Ctee249409/05/2024 8:56 AM ESTOxygen Fzvhcrkczd13%07/05/2025 8:56 AM ESTInhaled Oxygen Concentration--Ftcorz51.4 kg (168 lb 6.9 oz)07/05/2025 8:56 AM ESTHeight--Body Mass Index25.5310 12:46 PM EDTdocumented in this encounter Functional Status * Are you deaf or do you have serious difficulty hearing?AnswerDate of WhwzfunnqzQqmqkmAmi66/27/2015 12:58 PM Penny Wills MA * Are you blind or do you have serious difficulty seeing, even when wearing glasses?AnswerDate of PkgnvyjeqlZpcebxWsz38/27/2015 12:58 PM Penny Wills MA * Do you have serious difficulty walking or climbing stairs?AnswerDate of CwvfwdpfgvHitfraQq65/27/2015 12:58 PM Penny Wills MA * Do you have difficulty dressing or bathing?AnswerDate of AssessmentAuthorNo 09/15/2014 12:58 PM Penny Wills MA * Because of a physical, mental, or emotional condition, do you have difficulty doing errands alone such as visiting a doctor's office or shopping?AnswerDate of SapoqpvtblOjcfpnBrb88/27/2015 12:58 PM Penny Wills MA documented as of this encounter Mental Status * Because of a physical, mental, or emotional condition, do you have serious difficulty concentrating, remembering, or making decisions?AnswerEntry Date HvvpjfGt00/27/2015 12:58 PM Penny Wills MA documented in this encounter Patient Instructions * Patient Instructions* Isaac Gracia MD - 07/05/2025 9:16 AM EST Chemo teach for Gemcitabine Schedule gemcitabine next week D/c Ramucirumab, docetaxel F/u with Vicki on 07/11/25 Ordered MRI brain Refer to oncology at [facility] for a second opinion on lung cancer F/u next week documented in this encounter Progress Notes * Isaac Gracia MD - 07/05/2025 9:02 AM EST Images from the original note were not included. PATIENT NAME: Ofe Stephenson CLINIC NO.: [id number] ATTENDING PHYSICIAN: Isaac Gracia MD DATE OF SERVICE: 07/05/25 Some of the elements of this note have been copied from my previous progress note dated 06/20/25 Allthe information has been reviewed carefully. CHIEF COMPLAINT: [...] with Dr. Cuevas from rad onc at [facility] who recommended palliative RT closer to home, at [facility]. Venus is a former smoker, having quit [...] noticed it was gone the next day. 01/04/25: - C/o right shoulder pain - No side effects from chemo. - Takes tylenol for pain. Oxycodone as needed. - MRI shoulder (12/22/24) 01/26/25: - PET scan on 01/18/25 showed worsening of disease - C/o fatigue - C/o right shoulder pain. 02/24/25: - Started Lumakras 2 weeks ago on 02/09/25 - No side effects with Lumakras - Recd radiation to right shoulder and low neck on 02/21/25. - MRI brain in January - normal - Doing well - No major complaints 03/15/25: - C/o cough - Remains on Sotorosib - No GI side effects - Endo increased levothryroxine dose. - Dentist declined xgeva clearance 04/12/25: - Eating and drinking good. - C/o cough and Shortness of Breath - PET scan on 04/07/25 - worsening of disease. 04/18/25: -here to start 3rd line treatment with docetaxel and ramucirumab -saw pulmonary who felt cough was more so disease progression and also possibly sotorosib induced. -taking dex as prescribed. It makes her jittery 04/25/25: -received cycle 1 of docetaxel and ramucirumab last week -this treatment was rough on her -constipated, took linzess and it helped too good -she has had bone pain with this treatment, had to take morphine it was so bad -tongue sore and excess saliva -had a fever the day after chemo, otherwise no temperature. -no cough or shortness of breath -eating and drinking well 05/09/25: - Mouth sores and thrush has resolved. - Shoulder pain has improved - Cough is improving Updated Visit, May 30, 2025: Today, she reports improvement in shoulder pain. She notes a persistent neck mass that decreases insize in the morning but enlarges throughout the day. She denies nausea, vomiting, diarrhea, constipation, fever, or chills. She reports good appetite and oral intake, and is making an effort to increase her water intake. She reports that her cough has improved but is intermittent, and that it worsened during the first week after her last treatment before improving. She reports brittle fingernails that have become thinner and break easily, and states that this waspresent prior to starting chemotherapy. She also reports mouth sores that have improved with mouthwash, and nosebleeds with blood clots. She attributes her elevated blood pressure to steroids taken before chemotherapy, and notes that her blood pressure is usually low. She reports difficulty sleeping for 2 days. 06/20/25: - C/o stiff neck - C/o pain in the right neck - No other complaints. 07/05/25: - C/o pain in the right neck - C/o headache, unsteady gait - No other complaints. Current Outpatient Medications Medication Sig oxyCODONE IR (ROXICODONE) 5 mg immediate release tablet Take 1 to 2 tablets by mouth every 6 hours as needed for pain for up to 15 days. diphenhydrAMINE 12.5 mg/5 mL lidocaine visc 2% MAALOX 200-200-20 mg/5 mL nystatin prednisoLONE 15 mg/5 mL oral liquid 1:1:1:1:1 (CPD) Take 10 mL by mouth four times a day as needed. Swish and spit dexAMETHasone (DECADRON) 4 mg tablet PLEASE SEE ATTACHED FOR DETAILED DIRECTIONS loratadine (CLARITIN) 10 mg tablet Loratadine 10 mg tablet Active 10 MG PO February 06, 2025 12:00am Complies with drug therapy Mavcixnbxykgbgk-Rvpqvso-RH (ROBITUSSIN DAC) 30-10-100 mg/5 mL solution Take 2.5 mL by mouth four times a day as needed for up to 94 days. levothyroxine (SYNTHROID) 75 mcg tablet Take 1 tablet by mouth once daily. empagliflozin (JARDIANCE) 10 mg tablet Take 10 mg by mouth daily with breakfast. torsemide (DEMADEX) 20 mg tablet once daily as needed. gabapentin 300 mg Tb24 Take 300 mg by mouth two times a day. prochlorperazine (COMPAZINE) 10 mg tablet Take 1 tablet by mouth every 6 hours as needed. acetaminophen (TYLENOL) 325 mg tablet Take 325 mg by mouth as needed for pain. FLUoxetine (PROZAC) 20 mg capsule Take 40 mg by mouth once daily. ezetimibe (ZETIA) 10 mg tablet Take 10 mg by mouth once daily. vitamin b complex tab Take 1 tablet by mouth once daily. ASCORBIC ACID (VITAMIN C ORAL) Take by mouth once daily. Magnesium Oxide-Mg Amino Acid Chelate 300 mg cap Take 300 mg by mouth daily at bedtime. CHOLECALCIFEROL (VITAMIN D3) 2,000 UNIT CAP Take one(1) tablet daily. No current facility-administered medications for this visit. 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 REVIEW OF SYSTEMS GENERAL: No weight loss, malaise or fevers. No night sweats. HEENT: Positive for headaches, No changes in hearing or vision, no nose bleeds or other nasal problems. +mouth/tongue sores RESPIRATORY: Negative for cough, wheezing and shortness of breath CARDIOVASCULAR: Negative for chest pain, leg swelling and palpitations GI: Negative for abdominal discomfort, blood in stools or black stools and change in bowel habits : Negative for dysuria, frequency and incontinence MUSCULOSKELETAL: +bone pain after chemo SKIN: Negative for lesions, rash, and itching. HEMATOLOGY/LYMPHOLOGY Negative for prolonged bleeding, bruising easily, and swollen nodes. NEURO: Negative for numbness or tingling of hands/feet. No weakness. All negative except mentioned in HPI PHYSICAL EXAMINATION: BP 135/69 Pulse 71 Temp 36.2 ??C (97.2 ??F) (Temporal) Resp 16 Ht 172 cm (5' 7.72 ) Wt 84.1 kg (185 lb 6.5 oz) LMP 05/24/2007 SpO2 99% BMI 28.43 kg/m?? General appearance:ECOG PERFORMANCE STATUS: ECOG PS- 1. General: Alert and oriented, no distress, pleasant and cooperative. +chronic facial droop Oropharynx: thrush noted to buccal mucosal Heart: Regular, normal S1 and S2, no murmurs, rubs, or gallops Lungs: Clear to auscultation bilaterally Abdomen: Benign Extremities: Feet/ankles without edema; left ankle with edema-chronic Lymph: large approximately 3-4 cm fixed firm nodule in right lower cervical chain LABS: Glucose (mg/dL) Date Value 06/20/2025 136 12/24/2009 157 Potassium (mmol/L) Date Value 06/20/2025 4.4 12/24/2009 4.1 Sodium (mmol/L) Date Value 06/20/2025 143 12/24/2009 140 Chloride (mmol/L) Date Value 06/20/2025 104 12/24/2009 104 CO2 (mmol/L) Date Value 06/20/2025 29 12/24/2009 22 Creatinine (mg/dL) Date Value 06/20/2025 0.51 12/24/2009 0.52 BUN (mg/dL) Date Value 06/20/2025 14 12/24/2009 13 Anion Gap (mmol/L) Date Value 06/20/2025 10 12/24/2009 14 Calcium (mg/dL) Date Value 12/24/2009 9.1 Calcium, Total (mg/dL) Date Value 06/20/2025 9.7 Protein, Total (g/dL) Date Value 06/20/2025 6.8 Albumin (g/dL) Date Value 06/20/2025 3.6 Bilirubin, Total (mg/dL) Date Value 06/20/2025 <0.2 Alkaline Phosphatase (U/L) Date Value 06/20/2025 95 AST (U/L) Date Value 06/20/2025 10 ALT (U/L) Date Value 06/20/2025 10 WBC Date Value Ref Range Status 06/20/2025 8.47 3.70 - 11.00 k/uL Final RBC Date Value Ref Range Status 06/20/2025 3.92 3.90 - 5.20 m/uL Final Hemoglobin Date Value Ref Range Status 06/20/2025 11.0 (L) 11.5 - 15.5 g/dL Final Hematocrit Date Value Ref Range Status 06/20/2025 36.1 36.0 - 46.0 % Final MCV Date Value Ref Range Status 06/20/2025 92.1 80.0 - 100.0 fL Final MCH Date Value Ref Range Status 06/20/2025 28.1 26.0 - 34.0 pg Final MCHC Date Value Ref Range Status 06/20/2025 30.5 30.5 - 36.0 g/dL Final RDW-CV Date Value Ref Range Status 06/20/2025 17.7 (H) 11.5 - 15.0 % Final Platelet Count Date Value Ref Range Status 06/20/2025 435 (H) 150 - 400 k/uL Final MPV Date Value Ref Range Status 06/20/2025 9.3 9.0 - 12.7 fL Final Abs Neut Date Value Ref Range Status 06/20/2025 7.50 1.45 - 7.50 k/uL Final Lymphocytes % Date Value Ref Range Status 06/20/2025 8.1 % Final Abs Lymph Date Value Ref Range Status 06/20/2025 0.69 (L) 1.00 - 4.00 k/uL Final Monocytes % Date Value Ref Range Status 06/20/2025 2.6 % Final Abs [place] Date Value Ref Range Status 06/20/2025 0.22 <0.87 k/uL Final Eosin% Date Value Ref Range Status 04/25/2025 3.0 % Final Abs Eosin Date Value Ref Range Status 06/20/2025 <0.03 <0.46 k/uL Final Basophils % Date Value Ref Range Status 06/20/2025 0.1 % Final Abs Baso Date Value Ref Range Status 06/20/2025 <0.03 <0.11 k/uL Final PATH: FINAL DIAGNOSIS [...] off on Xgeva until the dental clearance - PET scan on 11/15/24 after 3 cycles of chemo immunotherapy showed stable to improvement in diseasecompared to prior CT scans. D/w radiologist Dr.Tamer King. - MRI shoulder on 12/22/24 showed stable 4cm metastatic lesion in the glenoid. - Completed cycle 6 keytruda on 01/04/25 - PET scan on 01/18/25 showed worsening of disease. - started second line sotorosib chemo pills given the KRAS G12C mutation 02/09/25 - Recd radiation to right shoulder and low neck , completed on 02/21/25. Recd 10fx. F/u with rad onc. - MRI brain in January 2025 - normal Dentist has declined clearance for bisphosphonate treatment. Advised her to see another dentist as she was not happy with the previous dentist. PET scan on 04/07/25 showed worsening of disease. Started third line docetaxel and ramucirumab 04/18/25 - Completed 3 cycles of Docetaxel, Ramucirumab on 05/30/25 -PET scan on 06/13/25 showed Progression of metastatic lymphadenopathy in the right supraclavicularregion. Left lung mass appears to be stable based on pet scan report from 04/07/25 eventhough the radiologist has described Interval increase in size and metabolism of the left upper lobe lung mass, compatible with progression of malignancy on the current PET report. Stable osseous metastatic disease - Ordered right supraclavicular lymph node biopsy to re-confirm the diagnosis. She has received radiation to right shoulder and right low neck , completed on 02/21/25. Recd 10fx. PLAN: 1. 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 Metastatic cancer to bone (HCC) - ICD9: 198.5, ICD10: C79.51 - Right cervical Lymph node biopsy on 06/23/25 showed Metastatic carcinoma containing a glandular component. The carcinoma shows similar morphology to the metastasis evaluated previously ([id number]).Immunohistochemical stains for p40 and TTF in this sample are negative, while a mucin stain is positive. The combined morphology and staining pattern suggest a common primary for the metastases, likely originating from the imaged lung mass - We will start her on fourth line gemcitabine single agent chemotherapy - Ordered MRI brain to rule out brain mets - Will check HER2 IHC on the lymph node biopsy - Refer to the [facility] for a second opinion regarding any kind of clinical trials or further treatment options - All her questions answered in detail - F/u in 1 week. Isaac Gracia MD. Hematology and Oncology Services Provided at: [place], [place] CC: I spent a total of 30 minutes on the date of the service which included preparing to see the patient, gakf-qn-cxfi patient care, completing clinical documentation, performing a medically appropriate examination, counseling and educating the patient/family/caregiver, ordering medications, tests, or p rocedures, independently interpreting results (not separately reported), communicating results to the patient/family/caregiver, and care coordination (not separately reported). * Deana Silverman RN - 07/05/2025 8:55 AM EST C/o daily headaches in the a.m. for 5 weeks. Describes pain as throbbing and improves with Tylenol or Advil or oxycodone. C/o worsening blurred vision for the last 5 weeks, worsening confusion, and unsteadiness ambulating. Deana Silverman RN documented in this encounter Miscellaneous Notes * Addendum Note - Isaac Gracia MD - 07/05/2025 12:54 PM ESTAddended by: ISAAC GRACIA on: 07/05/2025 12:54 PM Modules accepted: Orders documented in this encounter Plan of Treatment DateTypeDepartmentCare Team (Latest Contact Info)Mgpaunnxywg32/30/2025 2:15 PM ESTOffice Visit [facility] [address] [place] [address] [place] [address] follow up ohvihenivbj61/30/2025 2:30 PM ESTVisit (SP) Office Hematology/Oncology [address] [place] [address] [place] [address] Vicki Soriano APRN.FISCAL ACCOUNTING CLERK [address] [place] [address] [place] [address] follow up bptishebgld78/30/2025 3:00 PM [facility] Hematology/Oncology [address] [place] [address] [place] [address] follow up xjjtauskuxr26/31/2025 1:00 PM [facility] Hematology/[place] [address] Luis M Silvestre, [address] [place] [address] VV FOLLOW UP07/25/2025 1:15 PM ESTOffice Visit [facility] [address] [place] [address] [place] [address] lab follow up and chemotx Gjjpyr3607/25/2025 1:40 PM ESTVisit (SP) Office Hematology/Oncology [address] [place] [address] [place] [address] Miguel Sheridan MD [address] [place] [address] [place] [address] lab follow up and chemotx Rxkjue5507/25/2025 2:30 PM [facility] Center Hematology/Oncology [address] [place] [address] [place] [address] lab follow up and chemotx Wezfzk8808/29/2025 10:30 AM ESTOffice Visit Palliative Medicine [address] [place] [address] [place] [address] Dianne Keller, HYDROELECTRIC PLANT MAINTAINER.FISCAL ACCOUNTING CLERK [address] [place], [place] [id number] 3 month follow up09/19/2025 1:40 PM ESTOffice Visit Endocrinology [address] [place], [place] [id number] Shawna Card MD, PhD [address] [place], [place] [id number] Return in about 6 months (around 09/14/2025).NameTypePriorityAssociated Diagnoses Order ScheduleMRI BRAIN WO/W IVCONRadiologyRoutine Malignant neoplasm of overlapping sites of right lung (HCC) Expected: 07/12/2025 (Approximate), Expires: 08/04/2026NameTypePriority Associated DiagnosesOrder ScheduleCONSULT TO HEMATOLOGY/ONCOLOGYReferralRoutine Malignant neoplasm of overlapping sites of right lung (HCC) 1 Occurrences starting 07/05/2025 until 07/05/2026documented as of this encounter Procedures Procedure NamePriorityDate/TimeAssociated DiagnosisCommentsREFERRAL FOR ADDITIONAL BIOMARKER AND MOLECULAR BNSKAQHMzzqohe34/17/2025 12:54 PM EST Malignant neoplasm of overlapping sites of right lung (HCC) documented in this encounter Results * REFERRAL FOR ADDITIONAL BIOMARKER AND MOLECULAR TESTING (07/05/2025 12:54 PM EST)ComponentValueRef RangeTest MethodAnalysis TimePerformed AtPathologist WevnrxtkaFUMJUH94/17/2025 3:25 PM ESTNOR[facility]COAST [facility] Comment:Request has been received for evaluation and the results will be issued separately.Specimen (Source)Anatomical Location / LateralityCollection Method / VolumeCollection TimeReceived TimeTissuePARAFFIN EMBEDDED TISSUE BLOCK SPECIMEN / Qhgzfxy1107/05/2025 12:54 PM EST07/05/2025 12:54 PM EST Narrative [facility] - 07/05/2025 3:25 PM EST Authorizing ProviderResult TypeResult StatusAdars Torresureddy MDLABORATORY Final ResultPerforming OrganizationAddressCity/State/ZIP CodePhone Number [facility] [address] [place] [address] documented in this encounter Visit Diagnoses Diagnosis Malignant neoplasm of overlapping sites of right lung (HCC)- Primary documented in this encounter Care Teams Team MemberRelationshipSpecialtyStart DateEnd Date Gerson Gonzalez Jr., DO [address] [place] [id number] PCP - General08/24/01 Gerson Gonzalez Jr., DO [address] [place] [id number] ReferringInternal Gkbfmllz88/18/24 Ghislaine Thakur RN [address] [place] [address] Specialty Care CoordinatorHematology/Oncology08/31/24 Isaac Gracia MD [address] [facility] [place] [address] PhysicianHematology/Oncology08/31/24 Dianne Keller APRN.FISCAL ACCOUNTING CLERK [address] [place] [address] Hospice & Palliative Medicine08/31/24 Danielle Castellon LSW Social Worker09/29/24 Ramone Marcos RN Specialty Care CoordinatorHospice & Palliative Pnhmmynf77/13/25documented as of this encounter
--- OUTSIDE RECORDS SUMMARY | 2025-07-11 13:00 | XMS_ITS | Encounter Summary ---
Author Organization [facility] Address [address] [place] [address] Care Team Providers Care Dormitory Keeper Name Role Phone Lisa Carson DO, Charles Lewis Primary Care Provi heladio Lisa Carson DO, Charles Lewis Unavailable [phone] Ghislaine Thakur RN Unavailable +[phone] Nicholsa Gracia MD Unavailable [phone] Dianne Keller APRN.NEURO UROLOGIST Unavailable + Danielle Castellon Unavailable Unavailable Ramone Marcos RN Unavailable Unava ilable Source Comments In the event this information is protected by the Federal Confidentiality of Alcohol and Drug AbusePatient Records regulations: The Federal rules restrict any use of the information to criminally investigate or prosecute any alcohol or drug abuse patient.[facility] Reason for Referral * MRI/CT (Routine) - ClosedSpecialtyDiagnoses / ProceduresReferred By Contact Referred To ContactCT IMAGING Diagnoses Localized enlarged lymph nodes Procedures CT NECK SOFT TISSUE W IVCON CT SOFT TISSUE NECK W/CONTRAST MATERIAL Vicki Soriano APRN.NEURO UROLOGIST [address] [address] Phone: tel: fax: [place] [phone] Referral IDStatusReasonStart DateExpiration DateVisits RequestedVisits [id number] Auto-Generated Referral Reason for Visit * ReasonCommentsLung CancerTreatment visit Encounter Details DateTypeDepartmentCare Team (Latest Contact Info)Lfmpjxzjpef07/23/2025 1:00 PM ESTVisit (SP) Office Hematology/Oncology [address] [address] Vicki Soriano APRN.NEURO UROLOGIST [address] [place] [address] [place] [address] Malignant neoplasm of overlapping sites of right lung (HCC) (Primary Dx); Metastatic cancer to bone (HCC); Hypothyroidism due to medication; 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); Localized enlarged lymph nodes Social History Tobacco UseTypesPacks/DayYears UsedDateSmoking Tobacco: FormerCigarettes1.518 07/20/1981 - 07/20/1999Smokeless Tobacco: NeverAlcohol UseStandard Drinks/Week CommentsNo0 (1 standard drink = 0.6 oz pure alcohol)PHQ-2AnswerDate RecordedPHQ- 2 brdfu761/16/2025Area Deprivation IndexAnswerDate RecordedNational Score (1- 100), lower number is lower ltiu512804/10/2023State Score (1-10), lower number is lower ltoy1943Data from: https://www.neighborhoodatlas.medicine.[facility].edu/. Last address used for [address]CommentsNoSex and Gender Information ValueDate RecordedSex Assigned at BirthNot on fileLegal UnpGmmnyv30/02/2012 9:48 AM ESTGender VqiojhqcKhmcqh01/26/2022 11:07 AM EDTSexual OrientationNot on file OccupationIndustryJob Start DateJob End DatedisabledNot on fileNot on fileNot on filedocumented as of this encounter Last Filed Vital Signs Vital SignReadingTime TakenCommentsBlood Ldznjrsg476/6507/11/2025 12:52 PM EST Ijnpf235807/11/2025 12:52 PM LCRMmlmgolkbtz25.4 ??C (97.6 ??F)07/11/2025 12:52 PM ESTRespiratory Hjad457409/11/2024 12:52 PM ESTOxygen Gipacsmkwd47%07/11/2025 12:52 PM ESTInhaled Oxygen Concentration--Wqrrzq95.6 kg (168 lb 14 oz)07/11/2025 12:52 PM TNPEcvmni265 cm (5' 8.11 )07/11/2025 12:52 PM ESTBody Mass Index25.59 07/11/2025 12:52 PM ESTdocumented in this encounter Functional Status * Are you deaf or do you have serious difficulty hearing?AnswerDate of FslrsqepalPcvckvThx84/27/2015 12:58 PM Penny Wills MA * Are you blind or do you have serious difficulty seeing, even when wearing glasses?AnswerDate of MoajfhwyhwLwsdwbSjc63/27/2015 12:58 PM Penny Wills MA * Do you have serious difficulty walking or climbing stairs?AnswerDate of TzqvlzlbziIvxhmwEi47/27/2015 12:58 PM Penny Wills MA * Do you have difficulty dressing or bathing?AnswerDate of AssessmentAuthorNo 09/15/2014 12:58 PM Penny Wills MA * Because of a physical, mental, or emotional condition, do you have difficulty doing errands alone such as visiting a doctor's office or shopping?AnswerDate of PfzkhkuxqmChmyleDkl13/27/2015 12:58 PM Penny Wills MA documented as of this encounter Mental Status * Because of a physical, mental, or emotional condition, do you have serious difficulty concentrating, remembering, or making decisions?AnswerEntry Date AkxeqaMf08/27/2015 12:58 PM Penny Wills MA documented in this encounter Progress Notes * Vicki Soriano APRN.NEURO UROLOGIST - 07/11/2025 1:08 PM EST Images from the original note were not included. PATIENT NAME: Ofe Stephenson CLINIC NO.: [id number] ATTENDING PHYSICIAN: Nicholas Gracia MD DATE OF [...] with Dr. Cuevas from rad onc at [facility] who recommended palliative RT closer to home, at [facility]. 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 - Refer to the main [facility] for a second opinion regarding any kind of clinical trials or further treatment options. - Ordered CT neck. - Referral to radiation. - All her questions answered in detail. - F/u in 1 week. Vicki Soriano APRN.CNP Hematology and Oncology Services Provided at: [place], [place] CC: I spent a total of 30 minutes on the date of the service which included preparing to see the patient, zgyc-lv-epbu patient care, completing clinical documentation, performing a medically appropriate examination, counseling and educating the patient/family/caregiver, ordering medications, tests, or p rocedures, independently interpreting results (not separately reported), communicating results to the patient/family/caregiver, and care coordination (not separately reported). documented in this encounter Plan of Treatment DateTypeDepartmentCare Team (Latest Contact Info)Xrbkzrkworo68/30/2025 2:15 PM ESTOffice Visit [facility] [address] [place] [address] [place] [address] follow up bapcylzfcxw06/ 2:30 PM ESTVisit (SP) Office Hematology/Oncology [address] [address] Vicki Soriano, ICT CUSTOMER SUPPORT OFFICER.NEURO UROLOGIST [address] [place] [address] follow up fbjfoduldpj85/30/2025 3:00 PM [facility] [address] [place] [address] follow up hemqtzgijkx68/31/2025 1:00 PM [facility] Hematology/[place] [address] Luis M Silvestre DO [address] [place] [address] VV FOLLOW UP07/25/2025 1:15 PM ESTOffice Visit [facility] [address] [place] [address] lab follow up and chemotx Zljtlk5107/25/2025 1:40 PM ESTVisit (SP) Office Hematology/Oncology [address] [address] Miguel Sheridan MD [address] [facility] [place] [address] lab follow up and chemotx Ddiulb8707/25/2025 2:30 PM [facility] Center Hematology/Oncology [address] [place] [address] [place] [address] lab follow up and chemotx Nvjlgf8808/29/2025 10:30 AM ESTOffice Visit Palliative Medicine [address] [address] Dianne Keller, ICT CUSTOMER SUPPORT OFFICER.NEURO UROLOGIST [address] [place] [address] 3 month follow up09/19/2025 1:40 PM ESTOffice Visit Endocrinology [address] [place], [place] [id number] Shawna Card MD, PhD [address] [place], [place] [id number] Return in about 6 months (around 09/14/2025).NameTypePriorityAssociated [...] any questions regarding this interpretation, please call [phone]. If you are unable to reach us at the number above, please feel free to contact [facility] at [phone]. Narrative 07/12/2025 9:49 AM EST * * [...] this is only marginally included in the aeqhg-db-utim on the planar reconstructions. Lung apices: There [...] study.. Other: Not applicable. Procedure Note Provider, [facility] - 07/12/2025 * * *Final Report* * * DATE OF EXAM: Jul 12 2025 8:38AM [facility] 0013 - CT NECK SOFT [...] this is only marginally included in the xzlgr-ze-yxgy on the planar reconstructions. Lung apices: There [...] any questions regarding this interpretation, please call [phone]. If you are unable to reach us at the number above, please feel free to contact [facility] at [phone]. Authorizing ProviderResult TypeResult StatusHolly Bo PRINCE.CNPCT-PAMAFinal Result [...] Date Valone, Gerson Freedom Jr., DO [address] [place] [phone] PCP - General08/24/01 Gerson Gonzalez Jr., DO [address] [place] [phone] ReferringInternal Nnebbfuw34/18/24 Ghislaine Thakur RN [address] [place] [address] [place] [address] Specialty Care CoordinatorHematology/Oncology08/31/24 Nicholas Gracia MD [address] [place] [address] [place] [address] PhysicianHematology/Oncology08/31/24 Dianne Keller APRN.NEURO UROLOGIST [address] [place] [address] [place] [address] Hospice & Palliative Medicine08/31/24 Danielle Castellon LSW Social Worker09/29/24 Ramone Marcos RN Specialty Care CoordinatorHospice & Palliative Nypyocap89/13/25documented as of this encounter
--- OUTSIDE RECORDS SUMMARY | 2025-07-11 13:30 | XMS_ITS | Encounter Summary ---
Author Organization [facility] Address [address] [place] [address] Care Team Providers Care Return Agent Name Role Phone Lisa Carson DO, Charles Lewis Primary Care Provi heladio Lisa Carson DO, Charles Lewis Unavailable +[phone] Ghislaine Thakur RN Unavailable +[phone] Nicholas Gracia MD Unavailable [phone] Dianne Keller APRN.TIRE MOLDER Unavailable + Danielle Castellon Unavailable Unavailable Ramone Marcos RN Unavailable Unava ilable Source Comments In the event this information is protected by the Federal Confidentiality of Alcohol and Drug AbusePatient Records regulations: The Federal rules restrict any use of the information to criminally investigate or prosecute any alcohol or drug abuse patient.[facility] Reason for Visit * Terry Prior Authorization (Routine) - ClosedSpecialtyDiagnoses / Procedures Referred By ContactReferred To Contact Diagnoses Malignant neoplasm of overlapping sites of right lung (HCC) Nicholas Gracia MD [address] [place] [address] [place] [address] Phone: tel: fax: Hematology/Oncology [address] [place] [address] [place] [address] Phone: tel: fax: Referral IDStatusReasonStart DateExpiration DateVisits RequestedVisits [id number] Encounter Details DateTypeDepartmentCare Team (Latest Contact Info)Ewyxksdovvb27/23/2025 1:30 PM ESTInfcritical access hospital Center Hematology/Oncology [address] [place] [address] [place] [address] Malignant neoplasm of overlapping sites of right lung (HCC) (Primary Dx) Social History Tobacco UseTypesPacks/DayYears UsedDateSmoking Tobacco: FormerCigarettes1.518 07/20/1981 - 07/20/1999Smokeless Tobacco: NeverAlcohol UseStandard Drinks/Week CommentsNo0 (1 standard drink = 0.6 oz pure alcohol)PHQ-2AnswerDate RecordedPHQ- 2 wljow850/16/2025Area Deprivation IndexAnswerDate RecordedNational Score (1- 100), lower number is lower xseg439204/10/2023State Score (1-10), lower number is lower noth7573Data from: https://www.neighborhoodatlas.medicine.[facility].edu/. Last address used for r[address]3CommentsNoSex and Gender Information ValueDate RecordedSex Assigned at BirthNot on fileLegal TydTvztlv07/02/2012 9:48 AM ESTGender WhtgnhlzGrefbg07/26/2022 11:07 AM EDTSexual OrientationNot on file OccupationIndustryJob Start DateJob End DatedisabledNot on fileNot on fileNot on filedocumented as of this encounter Last Filed Vital Signs Vital SignReadingTime TakenCommentsBlood Pressure--Pulse--Temperature-- Respiratory Rate--Oxygen Saturation--Inhaled Oxygen Concentration--Glbxpv34.6 kg (168 lb 14 oz)07/11/2025 1:53 PM UZJNqzjiv391.5 cm (5' 8.31 )07/11/2025 1:53 PM ESTverified by 2RNsBody Mass Index25.45109/11/2024 1:53 PM ESTdocumented in this encounter Functional Status * Are you deaf or do you have serious difficulty hearing?AnswerDate of HfobsemgcmYhgwbfFis29/27/2015 12:58 PM Penny Wills MA * Are you blind or do you have serious difficulty seeing, even when wearing glasses?AnswerDate of MgzlwoxluuBlbxgkRae17/27/2015 12:58 PM Penny Wills MA * Do you have serious difficulty walking or climbing stairs?AnswerDate of GhgwrmgoniVsktkcCg41/27/2015 12:58 PM Penny Wills MA * Do you have difficulty dressing or bathing?AnswerDate of AssessmentAuthorNo 09/15/2014 12:58 PM Penny Wills MA * Because of a physical, mental, or emotional condition, do you have difficulty doing errands alone such as visiting a doctor's office or shopping?AnswerDate of TqnehakmryHccvtpPzf18/27/2015 12:58 PM Penny Wills MA documented as of this encounter Mental Status * Because of a physical, mental, or emotional condition, do you have serious difficulty concentrating, remembering, or making decisions?AnswerEntry Date WxjgepPv66/27/2015 12:58 PM Penny Wills MA documented in this encounter Plan of Treatment DateTypeDepartmentCare Team (Latest Contact Info)Vxbbqaqvbaq15/30/2025 2:15 PM ESTOffice Visit [facility] [address] [place] [address] [place] [address] follow up zhfjcgkrxuq67/30/2025 2:30 PM ESTVisit (SP) Office Hematology/Oncology [address] [facility] [address] Vicki Soriano, EXCHANGE UNDERWRITING CONSULTANT.TIRE MOLDER [address] [facility] [place] [address] follow up tlqhtfjumjm34/30/2025 3:00 PM ESTInfcritical access hospital Center Hematology/Oncology [address] [place] [address] [place] [address] follow up zdpuysgzfdc21/31/2025 1:00 PM [facility] Hematology/Oncology [address] [place] [address] Luis M Silvestre DO [address] [place] [address] VV FOLLOW UP07/25/2025 1:15 PM ESTOffice Visit [facility] Laboratory [address] [place] [address] [place] [address] lab follow up and chemotx Jezrgb9907/25/2025 1:40 PM ESTVisit (SP) Office Hematology/Oncology [address] [place] [address] [place] [address] Miguel Sheridan MD [address] [place] [address] [place] [address] lab follow up and chemotx Unozry8807/25/2025 2:30 PM [facility] Hematology/Oncology [address] [place] [address] [place] [address] lab follow up and chemotx Fvngwa2008/29/2025 10:30 AM ESTOffice Visit Palliative Medicine [address] [place] [address] [place] [address] Dianne Keller, EXCHANGE UNDERWRITING CONSULTANT.TIRE MOLDER [address] [place] [address] 3 month follow up09/19/2025 1:40 PM ESTOffice Visit Endocrinology [address] [facility] [place] [address] Shawna Card MD, PhD [address] [place] [address] Return in about 6 months (around 09/14/2025).documented as of this encounter Visit Diagnoses Diagnosis Malignant neoplasm of overlapping sites of right lung (HCC)- Primary documented in this encounter Administered Medications Medication OrderMAR ActionAction DateDoseRateSite gemcitabine 1,920 mg in NaCl 0.9% 325.496 mL (GEMZAR) 1,920 mg (1,000 mg/m2 ?? 1.92 m2 Treatment Plan BSA from Recorded weight), INTRAVENOUS, Administer over 30 Minutes, ONCE, 1 dose, On Thu07/11/25 at 1500, EXP: 0600 07/13/25 Hazardous Chemotherapy Drug: Use appropriate PPE. Antineoplastic Irritant. Indications:Malignant neoplasm of overlapping sites of right lung (HCC)New Bag/Syringe/Gvmfcn8307/11/2025 2:34 PM EST1,920 mg ondansetron (PF) 8 mg injection (ZOFRAN) 8 mg, INTRAVENOUS, ONCE, 1 dose, On Thu07/11/25 at 1430 Indications:Malignant neoplasm of overlapping sites of right lung (HCC)Given 07/11/2025 2:13 PM EST8 mgdocumented in this encounter Care Teams Team MemberRelationshipSpecialtyStart DateEnd Gerson Gonzalez Jr., DO [address] [place] [address] PCP - General08/24/01 Gerson Gonzalez Jr., DO [address] [place] [address] ReferringInternal Zsxlzbkn42/18/24 Ghislaine Thakur RN [address] [facility] [place] [address] Specialty Care CoordinatorHematology/Oncology08/31/24 Nicholas Gracia MD [address] [place] [address] [place] [address] PhysicianHematology/Oncology08/31/24 Dianne Keller APRN.TIRE MOLDER [address] [facility] [place] [address] Hospice & Palliative Medicine08/31/24 Danielle Castellon LSW Social Worker09/29/24 Ramone Marcos, RN Specialty Care CoordinatorHospice & Palliative Ezkdnfvn25/13/25documented as of this encounter
--- OUTSIDE RECORDS SUMMARY | 2025-07-12 08:10 | XMS_ITS | Encounter Summary ---
Author Organization [facility] Address [address] [place] [address] Care Team Providers Care Senior Software Qa Engineer Name Role Phone Lisa Carson DO, Charles Lewis Primary Care Provi heladio Lisa Carson DO, Charles Lewis Unavailable [phone] Ghislaine Thakur RN Unavailable [phone] Nicholas Gracia MD Unavailable [phone] Dianne Keller APRN.TRAUMA MANAGER Unavailable + Danielle Castellon Unavailable Unavailable Ramone Marcos RN Unavailable Unava ilable Source Comments In the event this information is protected by the Federal Confidentiality of Alcohol and Drug AbusePatient Records regulations: The Federal rules restrict any use of the information to criminally investigate or prosecute any alcohol or drug abuse patient.[facility] Reason for Referral * MRI/CT (Routine) - ClosedSpecialtyDiagnoses / ProceduresReferred By Contact Referred To ContactCT IMAGING Diagnoses Localized enlarged lymph nodes Procedures CT NECK SOFT TISSUE W IVCON CT SOFT TISSUE NECK W/CONTRAST MATERIAL Vicki Soriano, SURESH.TRAUMA MANAGER [address] [place] [address] Phone: tel: fax: [place] [address] Referral IDStatusReasonStart DateExpiration DateVisits RequestedVisits [id number] Auto-Generated Referral Reason for Visit * ReasonCommentsRadiology CT * MRI/CT (Routine) - ClosedSpecialtyDiagnoses / ProceduresReferred By Contact Referred To ContactCT IMAGING Diagnoses Localized enlarged lymph nodes Procedures CT NECK SOFT TISSUE W IVCON CT SOFT TISSUE NECK W/CONTRAST MATERIAL Vicki Soriano APRN.TRAUMA MANAGER [address] [place] [address] Phone: tel: fax: [place] [address] Referral IDStatusReasonStart DateExpiration DateVisits RequestedVisits [id number] Auto-Generated Referral Encounter Details DateTypeDepartmentCare Team (Latest Contact Info)Yuwzqptsyev20/24/2025 8:10 AM EST - 07/12/2025 11:59 PM ESTHospital Encounter Radiology Pet CT [address] [place] [address] Localized enlarged lymph nodes [R59.0] Discharge Disposition: Home Social History Tobacco UseTypesPacks/DayYears UsedDateSmoking Tobacco: FormerCigarettes1.518 07/20/1981 - 07/20/1999Smokeless Tobacco: NeverAlcohol UseStandard Drinks/Week CommentsNo0 (1 standard drink = 0.6 oz pure alcohol)PHQ-2AnswerDate RecordedPHQ- 2 bamwa988/16/2025Area Deprivation IndexAnswerDate RecordedNational Score (1- 100), lower number is lower ldsp997604/10/2023State Score (1-10), lower number is lower ffog5773Data from: https://www.neighborhoodatlas.[facility]/. Last address used for [address]CommentsNoSex and Gender Information ValueDate RecordedSex Assigned at BirthNot on fileLegal RvnWomvdw89/02/2012 9:48 AM ESTGender BrxvhlcvEsreqc78/26/2022 11:07 AM EDTSexual OrientationNot on file OccupationIndustryJob Start DateJob End DatedisabledNot on fileNot on fileNot on filedocumented as of this encounter Functional Status * Are you deaf or do you have serious difficulty hearing?AnswerDate of HofnwhmfplKzggnbYre58/27/2015 12:58 PM Penny Wills MA * Are you blind or do you have serious difficulty seeing, even when wearing glasses?AnswerDate of YaxhnprcmsTctegqArn94/27/2015 12:58 PM Penny Wills MA * Do you have serious difficulty walking or climbing stairs?AnswerDate of UooadjxpggDovqvhCf29/27/2015 12:58 PM Penny Wills MA * Do you have difficulty dressing or bathing?AnswerDate of AssessmentAuthorNo 09/15/2014 12:58 PM Penny Wills MA * Because of a physical, mental, or emotional condition, do you have difficulty doing errands alone such as visiting a doctor's office or shopping?AnswerDate of JkjzitvgwwJlemksGjk26/27/2015 12:58 PM Penny Wills MA documented as of this encounter Mental Status * Because of a physical, mental, or emotional condition, do you have serious difficulty concentrating, remembering, or making decisions?AnswerEntry Date JksvbbZl87/27/2015 12:58 PM Penny Wills MA documented in this encounter Medications at Time of Discharge MedicationSigDispense QuantityRefillsLast FilledStart DateEnd Date diphenhydrAMINE 12.5 mg/5 mL lidocaine visc 2% MAALOX 200-200-20 mg/5 mL nystatin prednisoLONE 15 mg/5 mL oral liquid 1:1:1:1:1 (CPD) Take 10 mL by mouth four times a day as needed. Swish and spit 300 mL 05/09/2025 3:50 PM EDT1 dexAMETHasone (DECADRON) 4 mg tablet PLEASE SEE ATTACHED FOR DETAILED VJOJNJTGFU33/26/2025 loratadine (CLARITIN) 10 mg tablet Loratadine 10 mg tablet Active 10 MG PO February 06, 2025 12:00am Complies with drug rsbcbbn4402/06/2025 levothyroxine (SYNTHROID) 75 mcg tablet Indications:Acquired hypothyroidismTake 1 tablet by mouth once daily. 90 tablet empagliflozin (JARDIANCE) 10 mg tablet Take 10 mg by mouth daily with breakfast. torsemide (DEMADEX) 20 mg tablet once daily as needed.10/26/2024 gabapentin 300 mg Tb24 Take 300 mg by mouth two times a day.10/10/2024 prochlorperazine (COMPAZINE) 10 mg tablet Take 1 tablet by mouth every 6 hours as needed. 100 tablet acetaminophen (TYLENOL) 325 mg tablet Take 325 mg by mouth as needed for pain.06/07/2024 FLUoxetine (PROZAC) 20 mg capsule Take 40 mg by mouth once daily. ezetimibe (ZETIA) 10 mg tablet Take 10 mg by mouth once daily.10/03/2021 vitamin b complex tab Take 1 tablet by mouth once daily.08/03/2018 ASCORBIC ACID (VITAMIN C ORAL) Take by mouth once daily. Magnesium Oxide-Mg Amino Acid Chelate 300 mg cap Take 300 mg by mouth daily at bedtime. CHOLECALCIFEROL (VITAMIN D3) 2,000 UNIT CAP Take one(1) tablet daily.documented as of this encounter Progress Notes * Palak oMran, MEKHI - 07/12/2025 8:15 AM EST Radiology Service Progress Note DATE OF SERVICE: July 12, 2025 TIME: 8:21 AM PATIENT WEIGHT: 169LBS PATIENT IDENTITY VERIFICATION COMPLETED USING TWO (2) STANDARD IDENTIFIERS: Name and Date of confirmed by patient verbally. FALL SCREENING: Has the patient had 2 falls in the last year or 1 fall with injury or currently using an Ambulatory Assistive Device (Walker, Cane, Wheelchair, Crutches, etc.)? Yes, Patient High Riskfor Falls What interventions were put in place to prevent falls during this visit? Instructed Patient to Callfor Help if Needed, Offered Assistance with Transfers/Clothing, Instructed Patient to Remain Seated(Not on Exam Table) Until Exam, and Increased Observations by Caregivers PATIENT GENDER DATA: Assigned female at . status: : No status:NO. ALLERGIES: Reviewed and unchanged CONTRAST ALLERGY: No EXAM: CT -CONTRAST INDUCED NEPHROPATHY RISK FACTORS: Patient age > 60 years CREATININE: Creatinine Date Value Ref Range Status 07/11/2025 0.54 (L) 0.58 - 0.96 mg/dL Final 06/20/2025 0.51 (L) 0.58 - 0.96 mg/dL Final 05/30/2025 0.46 (L) 0.58 - 0.96 mg/dL Final Estimated Glomerular Filtration Rate Date Value Ref Range Status 07/11/2025 100 >=60 mL/min/1.73m Final Comment: Estimated Glomerular Filtration Rate (eGFR) is calculated using the 2020 CKD-EPI creatinine equation. This equation utilizes serum creatinine, sex, and age as parameters. The creatinine assay has traceable calibration to isotope dilution- mass spectrometry. Refer to KDIGO guidelines for clinical interpretation. In patients with unstable renal function, e.g. those with acute kidney injury, the eGFRmay not accurately reflect actual GFR. eGFR- Date Value Ref Range Status 12/12/2009 >60 Final P.O.C.T. RESULTS: POC done: Yes, See Lab Tab July 12, 2025 TREATMENT: N/A IV SITE: Ambulatory: A peripheral IV was started in the Right antecubital site with a Angio cath: 20 gauge. IV SITE APPEARANCE: Clean,Dry and Intact SIGNATURE: Palak Moran RN PATIENT NAME: Ofe Stephenson DATE: July 12, 2025 TIME: 8:21 AM * Patricia Lyons, RT(R) - 07/12/2025 8:15 AM EST Radiology Service Progress Note PATIENT NAME: Ofe Stephenson DATE OF SERVICE: July 12, 2025 TIME: 8:33 AM PATIENT IDENTITY VERIFICATION COMPLETED USING TWO (2) IDENTIFIERS: Name and Date of confirmedby patient verbally. FALL SCREENING: Has the patient had 2 falls in the last year or 1 fall with injury or currently using an Ambulatory Assistive Device (Walker, Cane, Wheelchair, Crutches, etc.)? No PATIENT GENDER DATA: Assigned female at . status: : No status:NO. PATIENT RELEVANT IMPLANT DATA REVIEWED: Not Applicable PATIENT PRESENTS WITH AN IMPLANTABLE OR ATTACHED [employer] ARCHITECT: No RADIOLOGY DEPARTMENT: CT; Exam(s) Completed: Neck . Anesthesia: No PERIPHERAL IV DATA: Site assessment: Clean,Dry and Intact, Site disposition Discontinued SIGNED BY: RT Isa(R) July 12, 2025 8:33 AM documented in this encounter Plan of Treatment DateTypeDepartmentCare Team (Latest Contact Info)Ducvkucwxev54/30/2025 2:15 PM ESTOffice Visit [facility] [address] [place] [address] [place] [address] follow up rfwzzswusvn83/30/2025 2:30 PM ESTVisit (SP) Office Hematology/Oncology [address] [place] [address] [place] [address] Vicki Soriano APRN.TRAUMA MANAGER [address] [facility] [place] [address] follow up kcogcvasyrt49/30/2025 3:00 PM [facility] [address] [facility] [place] [address] follow up qwdmjmieinc72/31/2025 1:00 PM [facility] Hematology/[place] [address] Luis M Silvestre DO [address] [place] [address] VV FOLLOW UP07/25/2025 1:15 PM ESTOffice Visit [facility] [address] [place] [address] [place] [address] lab follow up and chemotx Xmbaiz4107/25/2025 1:40 PM ESTVisit (SP) Office Hematology/Oncology [address] [place] [address] [place] [address] Miguel Sheridan MD [address] [place] [address] [place] [address] lab follow up and chemotx Baegqc5107/25/2025 2:30 PM ESTInfusion Center Hematology/Oncology [address] [place] [address] [place] [address] lab follow up and chemotx Foeoar0108/29/2025 10:30 AM ESTOffice Visit Palliative Medicine [address] [place] [address] [place] [address] Dianne Keller, DECK OFFICER.TRAUMA MANAGER [address] [place] [address] 3 month follow up09/19/2025 1:40 PM ESTOffice Visit Endocrinology [address] [place], [place] [id number] Shawna Card MD, PhD [address] [place], [place] [id number] Return in about 6 months (around 09/14/2025).documented as of this encounter Procedures Procedure NamePriorityDate/TimeAssociated DiagnosisCommentsCT NECK SOFT TISSUE W SHETMFklylda61/24/2025 8:38 AM EST Localized enlarged lymph nodes documented in this encounter Results * CT NECK SOFT TISSUE W IVCON (07/12/2025 8:38 AM EST)Anatomical Region LateralityModalityNeckNmetrohealth main campus medical center Medicine, Nuclear MedicineSpecimen (Source) Anatomical Location / [...] any questions regarding this interpretation, please call [phone]. If you are unable to reach us at the number above, please feel free to contact [facility] at [phone]. Narrative 07/12/2025 9:49 AM EST * * [...] this is only marginally included in the uvmvp-ke-jrbo on the planar reconstructions. Lung apices: There [...] study.. Other: Not applicable. Procedure Note Provider, [facility] [place] - 07/12/2025 * * *Final Report* * * DATE OF EXAM: Jul 12 2025 8:38AM [facility] 0013 - CT NECK SOFT [...] this is only marginally included in the gwohg-eh-bsyh on the planar reconstructions. Lung apices: There [...] any questions regarding this interpretation, please call [phone]. If you are unable to reach us at the number above, please feel free to contact [facility] eRadiology at [phone]. Authorizing ProviderResult TypeResult StatusHolchris Soriano APRN.CNPCT-PAMAFinal Result documented in this encounter Visit Diagnoses Diagnosis Localized enlarged lymph nodes Enlargement of lymph nodes documented in this encounter Care Teams Team MemberRelationshipSpecialtyStart DateEnd Date Gerson Gonzalez Jr., DO [address] [place] [id number] PCP - General08/24/01 Gerson Gonzalez Jr., DO [address] [place] [address] ReferringInternal Mrynzlut35/18/24 Ghislaine Thakur RN [address] [facility] [place] [address] Specialty Care CoordinatorHematology/Oncology08/31/24 Nicholas Gracia MD [address] [place] [address] [place] [address] PhysicianHematology/Oncology08/31/24 Dianne Keller APRN.TRAUMA MANAGER [address] [facility] [place] [address] Hospice & Palliative Medicine08/31/24 Danielle Castellon LSW Social Worker09/29/24 Ramone Marcos RN Specialty Care CoordinatorHospice & Palliative Lfcolhas53/13/25documented as of this encounter
--- OUTSIDE RECORDS SUMMARY | 2025-07-17 07:58 | XMS_ITS | Encounter Summary ---
Author Organization [facility] Address [address] [place] [address] Care Team Providers Care Business Development Engineer Name Role Phone Lisa Carson DO, Charles Lewis Primary Care Provi heladio Lisa Carson DO, Charles Lewis Unavailable [phone] Ghislaine Thakur RN Unavailable [phone] Nicholas Gracia MD Unavailable [phone] Dianne Keller APRN.NEWSAGENT Unavailable + Danielle Castellon Unavailable Unavailable Ramone Marcos RN Unavailable Unava ilable Source Comments In the event this information is protected by the Federal Confidentiality of Alcohol and Drug AbusePatient Records regulations: The Federal rules restrict any use of the information to criminally investigate or prosecute any alcohol or drug abuse patient.[facility] Encounter Details DateTypeDepartmentCare Team (Latest Contact Info)Rdzhgdycmsl94/18/2025Telephone Hematology/Oncology [address] [place] [address] [place] [address] Danielle Castellon, LIZZY Social History Tobacco UseTypesPacks/DayYears UsedDateSmoking Tobacco: FormerCigarettes1.518 07/20/1981 - 07/20/1999Smokeless Tobacco: NeverAlcohol UseStandard Drinks/Week CommentsNo0 (1 standard drink = 0.6 oz pure alcohol)PHQ-2AnswerDate RecordedPHQ- 2 refth9395Area Deprivation IndexAnswerDate RecordedNational Score (1- 100), lower number is lower pdjj086704/10/2023State Score (1-10), lower number is lower [id number] from: https://www.neighborhoodatlas.medicine.[facility].edu/. Last address used for [address]3CommentsNoSex and Gender Information ValueDate RecordedSex Assigned at BirthNot on fileLegal ColJtcszg13/02/2012 9:48 AM ESTGender QlkvesuiYwlfmj02/26/2022 11:07 AM EDTSexual OrientationNot on file OccupationIndustryJob Start DateJob End DatedisabledNot on fileNot on fileNot on filedocumented as of this encounter Functional Status * Are you deaf or do you have serious difficulty hearing?AnswerDate of QauaqxeyovLcazzbSla58/27/2015 12:58 PM Penny Wills MA * Are you blind or do you have serious difficulty seeing, even when wearing glasses?AnswerDate of AguuzoczovOnxyduOju73/27/2015 12:58 PM Penny Wills MA * Do you have serious difficulty walking or climbing stairs?AnswerDate of QjqjfigbylFcllaiIc85/27/2015 12:58 PM Penny Wills MA * Do you have difficulty dressing or bathing?AnswerDate of AssessmentAuthorNo 09/15/2014 12:58 PM Penny Wills MA * Because of a physical, mental, or emotional condition, do you have difficulty doing errands alone such as visiting a doctor's office or shopping?AnswerDate of RvdbsnayfhBmonhrGur38/27/2015 12:58 PM Penny Wills MA documented as of this encounter Mental Status * Because of a physical, mental, or emotional condition, do you have serious difficulty concentrating, remembering, or making decisions?AnswerEntry Date VwwlynGi84/27/2015 12:58 PM Penny Wills MA documented in [...] Plan of Treatment DateTypeDepartmentCare Team (Latest Contact Info)Tfbxkpkbrjw32/30/2025 2:15 PM ESTOffice Visit [facility] [address] [place] [address] follow up pemfmunleip49/30/2025 2:30 PM ESTVisit (SP) Office Hematology/Oncology [address] [place] [address] Vicki Soriano APRN.NEWSAGENT [address] [facility] [address] follow up mynzwvguuth21/30/2025 3:[facility] [address] [facility] [place] [address] follow up jcclbtlmowo54/31/2025 1:00 PM [facility] Hematology/[place] [address] Luis M Silvestre DO [address] [place] [address] VV FOLLOW UP07/25/2025 1:15 PM ESTOffice Visit [facility] [address] [place] [address] [place] [address] lab follow up and chemotx Kbmsio3907/25/2025 1:40 PM ESTVisit (SP) Office Hematology/Oncology [address] [place] [address] [place] [address] Miguel Sheridan MD [address] [place] [address] [place] [address] lab follow up and chemotx Jwlhzk1607/25/2025 2:30 PM [facility] Hematology/Oncology [address] [place] [address] [place] [address] lab follow up and chemotx Zsftjq4408/29/2025 10:30 AM ESTOffice Visit Palliative Medicine [address] [place] [address] [place] [address] Dianne Keller, COAL SCREENER.NEWSAGENT [address] [place] [address] 3 month follow up09/19/2025 1:40 PM ESTOffice Visit Endocrinology [address] [place], [place] [id number] Shawna Card MD, PhD [address] [place] [address] Return in about 6 months (around 09/14/2025).documented as of this encounter Visit Diagnoses Not on filedocumented in this encounter Care Teams Team MemberRelationshipSpecialtyStart DateEnd Date Gerson Gonzalez Jr., DO [address] [facility]ELUN[facility] [place] [address] PCP - General08/24/01 Gerson Gonzalez Jr., DO [address] [facility] [place] [address] ReferringInternal Uwomqucg72/18/24 Ghislaine Thakur RN [address] [place] [address] [place] [address] Specialty Care CoordinatorHematology/Oncology08/31/24 Nicholas Gracia MD [address] [place] [address] [place] [address] PhysicianHematology/Oncology08/31/24 Dianne Keller APRN.NEWSAGENT [address] [place] [address] [place] [address] Hospice & Palliative Medicine08/31/24 Danielle Castellon LSW Social Worker09/29/24 Ramone Marcos RN Specialty Care CoordinatorHospice & Palliative Duakflxh34/13/25documented as of this encounter
--- OUTSIDE RECORDS SUMMARY | 2025-07-17 07:58 | XMS_ITS | Encounter Summary ---
Author Organization [facility] Address [address] [place] [address] Care Team Providers Care Lead Enterprise Architect Name Role Phone Lisa Carson DO, Charles Lewis Primary Care Provi ehladio Lisa Carson DO, Charles Lewis Unavailable [phone] Ghislaine Thakur RN Unavailable [phone] Nicholas Gracia MD Unavailable [phone] Dianne Keller APRN.INSTRUMENT MAN Unavailable + Danielle Castellon Unavailable Unavailable Ramone Marcos RN Unavailable Unava ilable Source Comments In the event this information is protected by the Federal Confidentiality of Alcohol and Drug AbusePatient Records regulations: The Federal rules restrict any use of the information to criminally investigate or prosecute any alcohol or drug abuse patient.[facility] Encounter Details DateTypeDepartmentCare Team (Latest Contact Info)Ewwfcuxkise69/17/2025Orders Only Hematology/Oncology [address] [place] [address] [place] [address] Kaylyn Cox, [facility] Social History Tobacco UseTypesPacks/DayYears UsedDateSmoking Tobacco: FormerCigarettes1.518 07/20/1981 - 07/20/1999Smokeless Tobacco: NeverAlcohol UseStandard Drinks/Week CommentsNo0 (1 standard drink = 0.6 oz pure alcohol)PHQ-2AnswerDate RecordedPHQ- 2 bnkxi2175Area Deprivation IndexAnswerDate RecordedNational Score (1- 100), lower number is lower iqml306804/10/2023State Score (1-10), lower number is lower hobs7263Data from: https://www.neighborhoodatlas.medicine.[facility].edu/. Last address used for [address]3CommentsNoSex and Gender Information ValueDate RecordedSex Assigned at BirthNot on fileLegal PavHhyjoe73/02/2012 9:48 AM ESTGender NftcczygGyxwcx76/26/2022 11:07 AM EDTSexual OrientationNot on file OccupationIndustryJob Start DateJob End DatedisabledNot on fileNot on fileNot on filedocumented as of this encounter Functional Status * Are you deaf or do you have serious difficulty hearing?AnswerDate of FvctspegqhQzusipVvi06/27/2015 12:58 PM Penny Wills MA * Are you blind or do you have serious difficulty seeing, even when wearing glasses?AnswerDate of SehnjzniyiZcgqhgMse54/27/2015 12:58 PM Penny Wills MA * Do you have serious difficulty walking or climbing stairs?AnswerDate of JskigzjvemLvtvweGe86/27/2015 12:58 PM Penny Wills MA * Do you have difficulty dressing or bathing?AnswerDate of AssessmentAuthorNo 09/15/2014 12:58 PM Penny Wills MA * Because of a physical, mental, or emotional condition, do you have difficulty doing errands alone such as visiting a doctor's office or shopping?AnswerDate of NnewecrxjvJgkyoxOxs87/27/2015 12:58 PM Penny Wills MA documented as of this encounter Mental Status * Because of a physical, mental, or emotional condition, do you have serious difficulty concentrating, remembering, or making decisions?AnswerEntry Date BvcvvtDw41/27/2015 12:58 PM Penny Wills MA documented in this encounter Plan of Treatment DateTypeDepartmentCare Team (Latest Contact Info)Zeuwvrpkkrd44/30/2025 2:15 PM ESTOffice Visit [facility] [address] [place] [address] [place] [address] follow up ymtaclcwhga84/30/2025 2:30 PM ESTVisit (SP) Office Hematology/Oncology [address] [place] [address] [place] [address] Vicki Soriano APRN.[address] [place] [address] follow up kcuyjyhfdiy10/30/2025 3:00 PM [facility] Hematology/Oncology [address] [place] [address] [place] [address] follow up gohsesptvdk38/31/2025 1:[address] [facility] Hematology/Oncology [address] [place] [address] Luis M Silvestre, [address] [place], [place] [id number] VV FOLLOW UP07/25/2025 1:15 PM ESTOffice Visit [facility] [address] [place] [address] [place] [address] lab follow up and chemotx Cvtvfe3507/25/2025 1:40 PM ESTVisit (SP) Office Hematology/Oncology [address] [place] [address] [place] [address] Miguel Sheridan MD [address] [place] [address] [place] [address] lab follow up and chemotx Uwtref6107/25/2025 2:30 PM [facility] Hematology/Oncology [address] [facility] [place] [address] lab follow up and chemotx Htwqgf4008/29/2025 10:30 AM ESTOffice Visit Palliative Medicine [facility] [place] [address] Dianne Keller APRN.INSTRUMENT MAN [address] [place] [address] 3 month follow up09/19/2025 1:40 PM ESTOffice Visit Endocrinology [address] [place], [place] [id number] Shawna Card MD, PhD [address] [place], [place] [phone] Return in about 6 months (around 09/14/2025).documented as of this encounter Visit Diagnoses Not on filedocumented in this encounter Care Teams Team MemberRelationshipSpecialtyStart DateEnd Date Gerson Gonzalez Jr., DO [address] [place] [address] PCP - General08/24/01 Gerson Gonzalez Jr., DO [address] [facility] [place] [address] ReferringInternal Ahzlacld15/18/24 Ghislaine Thakur RN [address] [place] [address] Specialty Care CoordinatorHematology/Oncology08/31/24 Nicholas Gracia MD [address] [place] [address] [place] [address] PhysicianHematology/Oncology08/31/24 Dianne Keller APRN.INSTRUMENT MAN [address] [place] [address] [place] [address] Hospice & Palliative Medicine08/31/24 Danielle Castellon LSW Social Worker09/29/24 Ramone Marcos RN Specialty Care CoordinatorHospice & Palliative Xoaedfrv11/13/25documented as of this encounter
--- OUTSIDE RECORDS SUMMARY | 2025-07-17 07:58 | XMS_ITS | Clinical Summary ---
Author Organization [facility] Address [id number] [address] [place] [address] Care Team Providers Care Dental Hygienist Name Role Phone Lisa Carson DO, Charles [...] Overview (10/25/2018): Nodules and goiter, non cancerous Aklflnu8607/20/2016 Overview (10/25/2018): Lost 45 lb..then gained back.. 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 VaricellaStrokeArthritis Overview (10/25/2018): Of neck, knee Family History Medical HistoryRelationNameCommentsStrokeFatherArthur GowitzkaDied from aneurism bleed in brainHypertensionMotherEleanor GowitzkaArthritisSisterRobin KochLots of arthritis issuesHypertensionSisterRobin KochRelationNameStatusCommentsFather Noe GowitzkaMotherEleanor GowitzkaSisterRobin Mohan Social History Tobacco UseTypesPacks/DayYears UsedDateSmoking Tobacco: GfvyfjXbldwulbgf2Ysnf: 1998Smokeless Tobacco: Never Tobacco Cessation:Counseling Given: Not Answered Alcohol UseStandard Drinks/WeekCommentsNo0 (1 standard drink = 0.6 oz pure alcohol)ChildcareAnswerDate LfxkzeiqVtuoredghIvgfvty49/12/2019EmploymentAnswer Date MevxzzvcFfqbqzrzkeIadmhel90/12/2019Purpose - LifeAnswerDate RecordedPurpose and direction in qazgDsiieal25/11/2021CommentsUnknownSex and Gender InformationValueDate RecordedSex Assigned at BirthNot on fileLegal SexFemale 02/22/2015 11:34 AM EDTGender IdentityNot on fileSexual OrientationNot on file Last Filed Vital Signs Vital SignReadingTime TakenCommentsBlood Lvzpemwn974/8105 8:57 AM EDT Krwlg991111/19/2015 8:57 AM EDTTemperature--Respiratory Rate--Oxygen Saturation-- Inhaled Oxygen Concentration--Giglvt23.3 kg (208 lb)10/25/2018 1:17 PM EDTHeight 175.3 cm (5' 9 )10/25/2018 1:17 PM EDTBody Mass Index30.72010/25/2018 1:17 PM EDT Plan of Treatment Health MaintenanceDue DateLast DoneCommentsDepression Tuilmbihp11/07/1969Tobacco Uyyckprnw29/07/1969Adult BMI Sqxxaumiy36/07/1975DTaP,Tdap and Td Vaccines (1 - Tdap)09/24/1975Zoster (Shingles) Vaccine (1 of 2)2006Fall Risk Screening 2021OVID-19 Vaccine ( - 2024- season)512/, 01/08/2021, 10/08/2020Influenza Pujvoxb5203/20/2025RSV ( or age 60+ yrs) (1 - 1-dose 75+ series)09/24/2031 Medical Devices Not on file Insurance * Guarantor: Ofe Stephenson TypeRelation to PatientDate of BirthPhone Billing AddressPersonal/IdoljpHxtj14/07/1956 [facility] [place] [address] Care Teams Team MemberRelationshipSpecialtyStart DateEnd Date Gerson Gonzalez Jr., [address] [place] [address] PCP - GeneralInternal Medicine10/08/18
--- OUTSIDE RECORDS SUMMARY | 2025-07-17 07:58 | XMS_ITS | Encounter Summary ---
Author Organization [facility] Address [address] [place] [address] Care Team Providers Care Event Marketing Manager Name Role Phone Lisa Carson DO, Charles Lewis Primary Care Provi heladio Lisa Carson DO, Charles Lewis Unavailable [phone] Ghislaine Thakur RN Unavailable [phone] Nicholas Gracia MD Unavailable [phone] Dianne Keller APRN.INDUSTRIAL CHEMISTRY TEACHER Unavailable + Danielle Castellon Unavailable Unavailable Ramone Marcos RN Unavailable Unava ilable Source Comments In the event this information is protected by the Federal Confidentiality of Alcohol and Drug AbusePatient Records regulations: The Federal rules restrict any use of the information to criminally investigate or prosecute any alcohol or drug abuse patient.[facility] Encounter Details DateTypeDepartmentCare Team (Latest Contact Info)Wzqjhwltmfh82/23/2025Travel Social History Tobacco UseTypesPacks/DayYears UsedDateSmoking Tobacco: FormerCigarettes1.518 07/20/1981 - 07/20/1999Smokeless Tobacco: NeverAlcohol UseStandard Drinks/Week CommentsNo0 (1 standard drink = 0.6 oz pure alcohol)PHQ-2AnswerDate RecordedPHQ- 2 qvjff3825Area Deprivation IndexAnswerDate RecordedNational Score (1- 100), lower number is lower [id number] Score (1-10), lower number is lower hbps2973Data from: https://www.neighborhoodatlas.[facility]/. Last address used for v[address]CommentsNoSex and Gender Information ValueDate RecordedSex Assigned at BirthNot on fileLegal HeyBpyrhv71/02/2012 9:48 AM ESTGender CooouxrjKcpaji32/26/2022 11:07 AM EDTSexual OrientationNot on file OccupationIndustryJob Start DateJob End DatedisabledNot on fileNot on fileNot on filedocumented as of this encounter Functional Status * Are you deaf or do you have serious difficulty hearing?AnswerDate of EhfwkgwxnqWxbqsnXdy01/27/2015 12:58 PM Penny Wills MA * Are you blind or do you have serious difficulty seeing, even when wearing glasses?AnswerDate of JqjhnfdyrfHoxoijUkd44/27/2015 12:58 PM Penny Wills MA * Do you have serious difficulty walking or climbing stairs?AnswerDate of ArzmbrvkbtZnhssnMt73/27/2015 12:58 PM Penny Wills MA * Do you have difficulty dressing or bathing?AnswerDate of AssessmentAuthorNo 09/15/2014 12:58 PM Penny Wills MA * Because of a physical, mental, or emotional condition, do you have difficulty doing errands alone such as visiting a doctor's office or shopping?AnswerDate of WssuvtbbokDmllctIvu48/27/2015 12:58 PM Penny Wills MA documented as of this encounter Mental Status * Because of a physical, mental, or emotional condition, do you have serious difficulty concentrating, remembering, or making decisions?AnswerEntry Date ZcixzzUj24/27/2015 12:58 PM Penny Wills MA documented in this encounter Plan of Treatment DateTypeDepartmentCare Team (Latest Contact Info)Mcwhevhaler71/30/2025 2:15 PM ESTOffice Visit [facility] [address] [place] [address] follow up myrqykhhhcd49/30/2025 2:30 PM ESTVisit (SP) Office Hematology/Oncology [address] [place] [address] [place] [address] Vicki Soriano APRN.[facility] [address] [place] [address] follow up jrsifcpqcgn34/30/2025 3:00 PM [facility] Hematology/Oncology [address] [place] [address] [place] [address] follow up xqyiwsfpbam84/31/2025 1:[address] [facility] Hematology/Oncology [address] [place] [address] Luis M Silvestre, [address] [place] [address] VV FOLLOW UP07/25/2025 1:15 PM ESTOffice Visit [facility] [address] [place] [address] [place] [address] lab follow up and chemotx Wkpjpt9607/25/2025 1:40 PM ESTVisit (SP) Office Hematology/Oncology [address] [place] [address] Miguel Sheridan MD [address] [facility] [place] [address] lab follow up and chemotx Vhdxwa6207/25/2025 2:[address] [facility] Hematology/Oncology [address] [place] [address] [place] [address] lab follow up and chemotx Razjzr6108/29/2025 10:30 AM ESTOffice Visit Palliative Medicine [address] [place] [address] Dianne Keller APRN.INDUSTRIAL CHEMISTRY TEACHER [address] [place] [address] 3 month follow up09/19/2025 1:40 PM ESTOffice Visit Endocrinology [address] [facility] [place] [address] Shawna Card MD, PhD [address] [facility] [place] [address] Return in about 6 months (around 09/14/2025).documented as of this encounter Visit Diagnoses Not on filedocumented in this encounter Care Teams Team MemberRelationshipSpecialtyStart DateEnd Date Gerson Gonzalez Jr., DO [facility] [place] [address] PCP - General08/24/01 Gerson Gonzalez Jr., DO [address] [place] [phone] ReferringInternal Grhdkvoj90/18/24 Ghislaine Thakur RN [address] [place] [address] Specialty Care CoordinatorHematology/Oncology08/31/24 Nicholas Gracia MD [address] [place] [address] PhysicianHematology/Oncology08/31/24 Dianne Keller APRN.INDUSTRIAL CHEMISTRY TEACHER [address] [place] [address] Hospice & Palliative Medicine08/31/24 Danielle Castellon LSW Social Worker09/29/24 Ramone Marcos RN Specialty Care CoordinatorHospice & Palliative Hgilmwcz15/13/25documented as of this encounter
--- OUTSIDE RECORDS SUMMARY | 2025-07-17 07:58 | XMS_ITS | Clinical Summary ---
Author Organization [facility] Address [address] [place] [address] Care Team Providers Care Embedded Developer Name Role Phone Gerson Gonzalez MD Primary Care Provider [phone] Shasta Flood Unavailable Allergies Active AllergyReactionsCriticalityNoted SgtoVyelezofQsrkkNrdzwxsEjka48/16/2010 Seasonal allergies Medications MedicationSigDispense QuantityRefillsLast FilledStart DateEnd [...] 180 capsule 5Active Active Problems ProblemNoted DateDiagnosed IuocFvooytz06/25/2024 Overview (11/12/2023): She is having increasing anxiety [...] but continues with symptoms of anxiety. Panic prxnnep4211/12/2023Visual atavfxspjvxtk44/25/2024 Overview (11/12/2023): Patient has been experiencing visual [...] states she did not hear back from [facility] regarding scheduling. Closed fracture of lower end of left radius with routine jqigjqo1102/24/2023losed fracture of lower end of left ulna with routine lacuhkc3202/24/2023Left wrist pain 02/24/2023ell palsy08/11/2018AVM (arteriovenous malformation) ([facility]) 08/11/2018 Overview (11/12/2023): 65 year old female with history of ruptured AVM requiring surgery in 2008 and then developed strokeduring surgery. 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 She reportedly had benefit with low dose clonazepam previously. Repeat brain MRI at [facility] with Dr. 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 She was following with neuro ophthalmology. She has developed visual hallucinations which are new for her. Tension type zlevzlfj79/23/3644Jeiiqotey62/23/2019Neck pain08/11/2018 Overview (11/12/2023): History of neck pain which remains at baseline without worsening. Cervical stenosis of spinal canal08/11/20184806Suiodoni60/07/2017 Overview (11/12/2023): Migraines are stable and infrequent. Isonde6105/26/2017Trigeminal bxhvfnydu72/03/2015 Overview (11/12/2023): She has had trigeminal neuralgia and previously on neurontin. She has trialed botox in the past at [facility]. She weaned gabapentin and is feeling better without medication . Degenerative disc disease, cyclis7601/30/2014Degenerative disc disease, cervical 02/08/2010 Overview (11/12/2023): History [...] InformationValueDate RecordedSex Assigned at BirthNot on fileLegal TqfSupklc87/ 7:08 PM EDTGender Identity Not on fileSexual OrientationNot on file Last Filed Vital Signs Vital SignReadingTime TakenCommentsBlood Qosrdyba339/72011/22/2024 1:09 PM EDT Prcyi304811/22/2024 1:09 PM EDTTemperature--Respiratory Pdsz424511/22/2024 1:09 PM EDTOxygen Hplzagmiaw87%11/22/2024 1:09 PM EDTInhaled Oxygen Concentration-- Ebyaun66.2 kg (190 lb)11/22/2024 1:09 PM RKRAirzcl229.3 cm (5' 9 )11/22/2024 1:09 PM EDTBody Mass Index28.0611/22/2024 1:09 PM EDT Plan of Treatment [place] [address] Care Teams Team MemberRelationshipSpecialtyStart DateEnd Date Gerson Gonzalez MD [address] [place] [address] [place] [address] PCP - GeneralInternal Medicine6/21/23 Shasta Flood PA [address] [place] [address] Physician AssistantNeurology10/10/24
--- OUTSIDE RECORDS SUMMARY | 2025-07-17 07:58 | XMS_ITS | Encounter Summary ---
Author Organization [facility] Address [address] [place] [address] Care Team Providers Care Conflicts Analyst Name Role Phone Lisa Carson DO, Charles Lewis Primary Care Provi heladio Lisa Carson DO, Charles Lewis Unavailable [phone] Ghislaine Thakur RN Unavailable [phone] Nicholas Gracia MD Unavailable [phone] Dianne Keller APRN.MUSIC STORE MANAGER Unavailable + Danielle Castellon Unavailable Unavailable Ramone Marcos RN Unavailable Unava ilable Source Comments In the event this information is protected by the Federal Confidentiality of Alcohol and Drug AbusePatient Records regulations: The Federal rules restrict any use of the information to criminally investigate or prosecute any alcohol or drug abuse patient.[facility] Encounter Details DateTypeDepartmentCare Team (Latest Contact Info)Yfdxpbgsdjo64/16/2025Telephone Hematology/Oncology [address] [place] [address] [place] [address] Annamarie Lal, RN Social History Tobacco UseTypesPacks/DayYears UsedDateSmoking Tobacco: FormerCigarettes1.518 07/20/1981 - 07/20/1999Smokeless Tobacco: NeverAlcohol UseStandard Drinks/Week CommentsNo0 (1 standard drink = 0.6 oz pure alcohol)PHQ-2AnswerDate RecordedPHQ- 2 lwpuf4605Area Deprivation IndexAnswerDate RecordedNational Score (1- 100), lower number is lower opts538304/10/2023State Score (1-10), lower number is lower egbk5293Data from: https://www.neighborhoodatlas.medicine.[facility].edu/. Last address used for [address]3CommentsNoSex and Gender Information ValueDate RecordedSex Assigned at BirthNot on fileLegal TfmCklpas37/02/2012 9:48 AM ESTGender AerhlwjkUoalyg47/26/2022 11:07 AM EDTSexual OrientationNot on file OccupationIndustryJob Start DateJob End DatedisabledNot on fileNot on fileNot on filedocumented as of this encounter Functional Status * Are you deaf or do you have serious difficulty hearing?AnswerDate of QdjdpgrgjdTulnasUcw71/27/2015 12:58 PM Penny Wills MA * Are you blind or do you have serious difficulty seeing, even when wearing glasses?AnswerDate of KzbwnkdrdbSuvibiWml09/27/2015 12:58 PM Penny Wills MA * Do you have serious difficulty walking or climbing stairs?AnswerDate of QmykhynvuxFvwqoxZa59/27/2015 12:58 PM Penny Wills MA * Do you have difficulty dressing or bathing?AnswerDate of AssessmentAuthorNo 09/15/2014 12:58 PM Penny Wills MA * Because of a physical, mental, or emotional condition, do you have difficulty doing errands alone such as visiting a doctor's office or shopping?AnswerDate of MgcixhixhpUgdqxoUio22/27/2015 12:58 PM Penny Wills MA documented as of this encounter Mental Status * Because of a physical, mental, or emotional condition, do you have serious difficulty concentrating, remembering, or making decisions?AnswerEntry Date QjfbvmXr89/27/2015 12:58 PM Penny Wills MA documented in this encounter Miscellaneous Notes * Telephone Encounter - Annamarie Lal RN - 07/04/2025 1:11 PM EST Pended standing lab orders for treatment. Annamarie Lal RN documented in this encounter Plan of Treatment DateTypeDepartmentCare Team (Latest Contact Info)Rmjxsecrabb59/30/2025 2:15 PM ESTOffice Visit [facility] [address] [place] [address] [place] [address] follow up erfimkorxuf35/30/2025 2:30 PM ESTVisit (SP) Office Hematology/Oncology [address] [place] [address] [place] [address] Vicki Soriano APRN.MUSIC STORE MANAGER [address] [facility] [place] [place] [address] follow up zryewokwcni89/30/2025 3:00 PM [facility] Hematology/Oncology [address] [facility] [place] [address] follow up ggimiuvoasv59/31/2025 1:00 PM [facility] Hematology/[place] [address] Luis M Silvestre, [address] [place] [address] VV FOLLOW UP07/25/2025 1:15 PM ESTOffice Visit [facility] [address] [facility] [place] [address] lab follow up and chemotx Xtjyqw4007/25/2025 1:40 PM ESTVisit (SP) Office Hematology/Oncology [address] [place] [address] [place] [address] Miguel Sheridan MD [address] [place] [address] [place] [address] lab follow up and chemotx Nkfnrr9507/25/2025 2:30 PM [facility] Hematology/Oncology [address] [place] [address] [place] [address] lab follow up and chemotx Bhqsnd9708/29/2025 10:30 AM ESTOffice Visit Palliative Medicine [address] [place] [address] [place] [address] Dianne Keller, EXCHANGE SPECIALIST.MUSIC STORE MANAGER [address] [place] [address] 3 month follow up09/19/2025 1:40 PM ESTOffice Visit Endocrinology [address] [place] [address] Shawna Card MD, PhD [address] [place] [address] Return in about 6 months (around 09/14/2025).NameTypePriorityAssociated [...] SignatureTSH6.140(H) 0.270 - 4.200 mIU/L109/12/2024 5:05 AM ESTC[facility] LABSpecimen (Source)Anatomical Location / LateralityCollection Method / VolumeCollection TimeReceived TimeBloodBLOOD SPECIMEN / UnknownVenipuncture / Gixllvm0507/11/2025 12:45 PM EST07/11/2025 12:45 PM EST Narrative Authorizing ProviderResult TypeResult StatusMiguel Sheridan MDLABORATORYFinal ResultPerforming OrganizationAddressCity/State/ZIP CodePhone Number [facility] [address] [place] [address], * MAGNESIUM (07/11/2025 12:45 PM EST)ComponentValueRef RangeTest MethodAnalysis TimePerformed AtPathologist SignatureMagnesium1.71.7 - 2.3 mg/dL07/11/2025 1:26 PM [facility] LABSpecimen (Source)Anatomical Location / LateralityCollection Method / VolumeCollection TimeReceived Time BloodBLOOD SPECIMEN / UnknownVenipuncture / Emsbyun5407/11/2025 12:45 PM EST 07/11/2025 12:45 PM EST Narrative Authorizing ProviderResult TypeResult StatusMiguel DIANAORATORYFinal ResultPerforming OrganizationAddressCity/State/ZIP CodePhone Number [facility] [address] [place] [address] * (ABNORMAL) COMPREHENSIVE METABOLIC PANEL (07/11/2025 12:45 PM EST)Component ValueRef RangeTest MethodAnalysis TimePerformed AtPathologist Signature Protein, Total6.66.3 - 8.0 g/dL07/11/2025 1:26 PM [facility] LABAlbumin3.3(L)3.9 - 4.9 g/dL07/11/2025 1:26 PM [facility] LABCalcium, Total9.38.5 - 10.2 mg/dL07/11/2025 1:26 PM [facility] LABBilirubin, Total0.20.2 - 1.3 mg/dL 07/11/2025 1:26 PM [facility] LABAlkaline Kaincldpsrm1478 - 123 U/L109/11/2024 1:26 PM [facility] RYPVLP8800 - 35 U/L109/11/2024 1:26 PM [facility] HHNVVQ5176 - 35 U/L109/11/2024 1:26 PM [facility] BULCawzcys6490 - 99 mg/dL07/11/2025 1:26 PM [facility] LABComment: The [place] Diabetes Association (ADA) provides guidance for cutoff [...] Standards of Medical Care in Diabetes 2016, [place] Diabetes Association. Diabetes Care. 2016.39(Suppl 1). HRT538 - 21 mg/dL07/11/2025 1:26 PM [facility] Creatinine0.54(L)0.58 - 0.96 mg/dL07/11/2025 1:26 PM [facility] ROIKecxel901778 - 144 mmol/L109/11/2024 1:26 PM [facility] LABPotassium4.13.7 - 5.1 mmol/L109/11/2024 1:26 PM EST [facility] PKWDrrxfikv8409 - 107 mmol/L109/11/2024 1:26 PM [facility] HYQIZ02919 - 30 mmol/L109/11/2024 1:26 PM [facility] LABAnion Yal506 - 15 mmol/L109/11/2024 1:26 PM [facility] LABEstimated Glomerular Filtration Rate 100>=60 mL/min/1.73m 07/11/2025 1:26 PM [facility] LABComment:Estimated Glomerular Filtration Rate (eGFR) is calculated [...] VolumeCollection TimeReceived TimeBloodBLOOD SPECIMEN / UnknownVenipuncture / Tyqqsod1507/11/2025 12:45 PM EST07/11/2025 12:45 PM EST Narrative Authorizing ProviderResult TypeResult StatusJoseafshan Sheridan MDLABORATORYFinal ResultPerforming OrganizationAddressCity/State/ZIP CodePhone Number [facility] [address] [place] [address] * (ABNORMAL) COMPLETE BLOOD COUNT AND DIFFERENTIAL (07/11/2025 12:45 PM EST) ComponentValueRef RangeTest MethodAnalysis TimePerformed AtPathologist HgwysboirVYM57.50(H)3.70 - 11.00 k/uL07/11/2025 12:48 PM [facility] LABRBC3.71(L)3.90 - 5.20 m/uL07/11/2025 12:48 PM EST [facility] SFSMumozunveg71.4(L)11.5 - 15.5 g/dL 07/11/2025 12:48 PM [facility] PUHEzvkcfkexv70.1(L) 36.0 - 46.0 %07/11/2025 12:48 PM [facility] LABMCV 91.980.0 - 100.0 fL07/11/2025 12:48 PM [facility] ZNJTYW42.026.0 - 34.0 pg07/11/2025 12:48 PM [facility] GYMHFSY41.530.5 - 36.0 g/dL07/11/2025 12:48 PM [facility] LABRDW-CV18.1(H)11.5 - 15.0 %07/11/2025 12:48 PM [facility] LABPlatelet Fdeqx438(H)150 - 400 k/uL07/11/2025 12:48 PM [facility] LABMPV9.29.0 - 12.7 fL07/11/2025 12:48 PM [facility] LABNeutrophils %80.5%07/11/2025 12:48 PM [facility] LABAbs Neut10.06(H)1.45 - 7.50 k/uL 07/11/2025 12:48 PM [facility] LABLymphocytes %8.1% 07/11/2025 12:48 PM [facility] LABAbs Lymph1.011.00 - 4.00 k/uL07/11/2025 12:48 PM [facility] LAB Monocytes %8.2%07/11/2025 12:48 PM [facility] LABAbs Mono1.03(H)<0.87 k/uL07/11/2025 12:48 PM [facility] LABEosinophils %2.4%07/11/2025 12:48 PM [facility] LABAbs Eosin0.30<0.46 k/uL07/11/2025 12:48 PM [facility] LABBasophils %0.3%07/11/2025 12:48 PM [facility] LABAbs Baso0.04<0.11 k/uL07/11/2025 12:48 PM [facility] LABImmature Granulocytes %0.5%07/11/2025 12:48 PM [facility] LABAbs Immature Gran0.06<0.10 k/uL07/11/2025 12:48 PM [facility] LABNRBC0.0/100 WBC07/11/2025 12:48 PM EST [facility] LABAbsolute nRBC<0.01<0.01 k/uL07/11/2025 12:48 PM [facility] LABDiff MpjtWmac98/23/2025 12:48 PM [facility] LABSpecimen (Source)Anatomical Location / LateralityCollection Method / VolumeCollection TimeReceived Time BloodBLOOD SPECIMEN / UnknownVenipuncture / Nwecyfp6807/11/2025 12:45 PM EST 07/11/2025 12:45 PM EST Narrative Authorizing ProviderResult TypeResult StatusJoseafshan Sheridan MDLABORATORYFinal ResultPerforming OrganizationAddressCity/State/ZIP CodePhone Number [facility] [address] [place] [address] documented in this encounter Visit Diagnoses Diagnosis Malignant neoplasm of overlapping sites of right lung (HCC)- Primary Metastatic cancer to bone (HCC) Secondary malignant neoplasm of bone and bone marrow Encounter for antineoplastic chemotherapy Hypothyroidism due to medication documented in this encounter Care Teams Team MemberRelationshipSpecialtyStart DateEnd Date Gerson Gonzalez Jr., DO [address] [place] [phone] PCP - General08/24/01 Gerson Gonzalez Jr., DO [address] [place] [phone] ReferringInternal Vublfcln05/18/24 Ghislaine Thakur RN [address] [place] [address] [place] [address] Specialty Care CoordinatorHematology/Oncology08/31/24 Nicholas Gracia MD [address] [place] [address] [place] [address] PhysicianHematology/Oncology08/31/24 Dianne Keller APRN.MUSIC STORE MANAGER [address] [place] [address] [place] [phone] Hospice & Palliative Medicine08/31/24 Danielle Castellon LSW Social Worker09/29/24 Ramone Marcos RN Specialty Care CoordinatorHospice & Palliative Lpcpcpkd48/13/25documented as of this encounter
--- OUTSIDE RECORDS SUMMARY | 2025-07-17 07:58 | XMS_ITS | Encounter Summary ---
Author Organization [facility] Address [address] [place] [address] Care Team Providers Care Employee Services Manager Name Role Phone Lisa Carson DO, Charles Lewis Primary Care Provi heladio Lisa Carson DO, Charles Lewis Unavailable [phone] Ghislaine Thakur RN Unavailable [phone] Nicholas Gracia MD Unavailable [phone] Dianne Keller APRN.PHLEBOTOMY TECHNOLOGIST Unavailable + Danielle Castellon Unavailable Unavailable Ramone Marcos RN Unavailable Unava ilable Source Comments In the event this information is protected by the Federal Confidentiality of Alcohol and Drug AbusePatient Records regulations: The Federal rules restrict any use of the information to criminally investigate or prosecute any alcohol or drug abuse patient.[facility] Reason for Visit * ReasonCommentsFirst Time Treatment Education Encounter Details DateTypeDepartmentCare Team (Latest Contact Info)Hrwpzbnstoy68/22/2025Education Hematology/Oncology [address] [address] Ghislaine Thakur RN [address] [address] First Time Treatment Education Social History Tobacco UseTypesPacks/DayYears UsedDateSmoking Tobacco: FormerCigarettes1.518 07/20/1981 - 07/20/1999Smokeless Tobacco: NeverAlcohol UseStandard Drinks/Week CommentsNo0 (1 standard drink = 0.6 oz pure alcohol)PHQ-2AnswerDate RecordedPHQ- 2 mzopa196/16/2025Area Deprivation IndexAnswerDate RecordedNational Score (1- 100), lower number is lower ykkb97133State Score (1-10), lower number is lower skmi6323Data from: https://www.neighborhoodatlas.medicine.[facility].edu/. Last address used for q[address]3CommentsNoSex and Gender Information ValueDate RecordedSex Assigned at BirthNot on fileLegal XvsLoxiqe37/02/2012 9:48 AM ESTGender OzmwdmaoOabpda81/26/2022 11:07 AM EDTSexual OrientationNot on file OccupationIndustryJob Start DateJob End DatedisabledNot on fileNot on fileNot on filedocumented as of this encounter Functional Status * Are you deaf or do you have serious difficulty hearing?AnswerDate of QmurtbmyvjGivxzjQmq26/27/2015 12:58 PM Penny Wills MA * Are you blind or do you have serious difficulty seeing, even when wearing glasses?AnswerDate of GixalgyydaAjojvcGmc88/27/2015 12:58 PM Penny Wills MA * Do you have serious difficulty walking or climbing stairs?AnswerDate of NzuquejrsqEpkgnpEw89/27/2015 12:58 PM Penny Wills MA * Do you have difficulty dressing or bathing?AnswerDate of AssessmentAuthorNo 09/15/2014 12:58 PM Penny Wills MA * Because of a physical, mental, or emotional condition, do you have difficulty doing errands alone such as visiting a doctor's office or shopping?AnswerDate of OkiimjwbyvIrbmdtMpq33/27/2015 12:58 PM Penny Wills MA documented as of this encounter Mental Status * Because of a physical, mental, or emotional condition, do you have serious difficulty concentrating, remembering, or making decisions?AnswerEntry Date AbufjrPr60/27/2015 12:58 PM Penny Wills MA documented in [...] Plan of Treatment DateTypeDepartmentCare Team (Latest Contact Info)Ftsjaoyaxtu22/30/2025 2:15 PM ESTOffice Visit [facility] [address] [place] [address] [place] [address] follow up ibptiihpyrr90/30/2025 2:30 PM ESTVisit (SP) Office Hematology/Oncology [address] [place] [address] [place] [address] Vicki Soriano APRN.PHLEBOTOMY TECHNOLOGIST [address] [facility] [place] [address] follow up abgqafxsxol77/30/2025 3:[address] [facility] Hematology/Oncology [address] [facility] [place] [address] follow up spiwqqfyoas81/31/2025 1:00 PM [facility] Hematology/[place] [address] Luis M Silvestre DO [address] [place] [address] VV FOLLOW UP07/25/2025 1:15 PM ESTOffice Visit [facility] [address] [place] [address] [place] [address] lab follow up and chemotx Wlbvau9707/25/2025 1:40 PM ESTVisit (SP) Office Hematology/Oncology [address] [place] [address] [place] [address] Miguel Sheridan MD [address] [place] [address] [place] [address] lab follow up and chemotx Xehuto3607/25/2025 2:30 PM ESTInfusion Center Hematology/Oncology [address] [place] [address] [place] [address] lab follow up and chemotx Jporbo4108/29/2025 10:30 AM ESTOffice Visit Palliative Medicine [address] [place] [address] [place] [address] Dianne Keller, SURESH.PHLEBOTOMY TECHNOLOGIST [address] [place] [address] 3 month follow up09/19/2025 1:40 PM ESTOffice Visit Endocrinology 57[address] [place] [address] Shawna Card MD, PhD [address] [place], [place] [id number] Return in about 6 months (around 09/14/2025).documented as of this encounter Visit Diagnoses Diagnosis Malignant neoplasm of overlapping sites of right lung (HCC)- Primary documented in this encounter Care Teams Team MemberRelationshipSpecialtyStart DateEnd Date Gerson Gonzalez Jr., DO [address] [facility] [place] [phone] PCP - General08/24/01 Gerson Gonzalez Jr., DO [address] [facility] [place] [address] ReferringInternal Vdyculpr31/18/24 Ghislaine Thakur RN [address] [place] [address] [place] [address] Specialty Care CoordinatorHematology/Oncology08/31/24 Nicholas Gracia MD [address] [place] [address] [place] [address] PhysicianHematology/Oncology08/31/24 Dianne Keller APRN.PHLEBOTOMY TECHNOLOGIST [address] [place] [address] [place] [address] Hospice & Palliative Medicine08/31/24 Danielle Castellon LSW Social Worker09/29/24 Ramone Marcos, RN Specialty Care CoordinatorHospice & Palliative Dhvpnzoi35/13/25documented as of this encounter
--- OUTSIDE RECORDS SUMMARY | 2025-07-17 07:58 | XMS_ITS | Encounter Summary ---
Author Organization [facility] Address [address] [place] [address] Care Team Providers Care Software Qa Manager Name Role Phone Lisa Carson DO, Charles Lewis Primary Care Provi heladio Lisa Carson DO, Charles Lewis Unavailable [phone] Ghislaine Thakur RN Unavailable [phone] Nicholas Gracia MD Unavailable [phone] Dianne Keller APRN.CHECKROOM ATTENDANT Unavailable + Danielle Castellon Unavailable Unavailable Ramone Marcos RN Unavailable Unava ilable Source Comments In the event this information is protected by the Federal Confidentiality of Alcohol and Drug AbusePatient Records regulations: The Federal rules restrict any use of the information to criminally investigate or prosecute any alcohol or drug abuse patient.[facility] Encounter Details DateTypeDepartmentCare Team (Latest Contact Info)Hjpqpurzcyi05/24/2025Travel Social History Tobacco UseTypesPacks/DayYears UsedDateSmoking Tobacco: FormerCigarettes1.518 07/20/1981 - 07/20/1999Smokeless Tobacco: NeverAlcohol UseStandard Drinks/Week CommentsNo0 (1 standard drink = 0.6 oz pure alcohol)PHQ-2AnswerDate RecordedPHQ- 2 spjhp9545Area Deprivation IndexAnswerDate RecordedNational Score (1- 100), lower number is lower bdaf23133State Score (1-10), lower number is lower brtc0143Data from: https://www.neighborhoodatlas.[facility]/. Last address used for sn[address]3CommentsNoSex and Gender Information ValueDate RecordedSex Assigned at BirthNot on fileLegal CvbPbouzt08/02/2012 9:48 AM ESTGender RbwxaqhlRdromv86/26/2022 11:07 AM EDTSexual OrientationNot on file OccupationIndustryJob Start DateJob End DatedisabledNot on fileNot on fileNot on filedocumented as of this encounter Functional Status * Are you deaf or do you have serious difficulty hearing?AnswerDate of QnjkmbnfviVapwpoOak99/27/2015 12:58 PM Penny Wills MA * Are you blind or do you have serious difficulty seeing, even when wearing glasses?AnswerDate of EidvppsorqOwfyukJmt50/27/2015 12:58 PM Penny Wills MA * Do you have serious difficulty walking or climbing stairs?AnswerDate of RnqyyijvxqNluckwJm56/27/2015 12:58 PM Penny Wills MA * Do you have difficulty dressing or bathing?AnswerDate of AssessmentAuthorNo 09/15/2014 12:58 PM Penny Wills MA * Because of a physical, mental, or emotional condition, do you have difficulty doing errands alone such as visiting a doctor's office or shopping?AnswerDate of NyrmuogsiwYldmikKcl80/27/2015 12:58 PM Penny Wills MA documented as of this encounter Mental Status * Because of a physical, mental, or emotional condition, do you have serious difficulty concentrating, remembering, or making decisions?AnswerEntry Date UoqasiVj65/27/2015 12:58 PM Penny Wills MA documented in this encounter Plan of Treatment DateTypeDepartmentCare Team (Latest Contact Info)Wynakogmcoy24/30/2025 2:15 PM ESTOffice Visit [facility] [address] [facility] [place] [address] follow up gjhdicohmox32/30/2025 2:30 PM ESTVisit (SP) Office Hematology/Oncology [address] [place] [address] [place] [address] Vicki Soriano APRN.[facility] [address] [facility] [place] [address] follow up afuozyiuhrf53/30/2025 3:[address] [facility] Hematology/Oncology [address] [place] [address] [place] [address] follow up qvjxevpqpgw07/31/2025 1:00 PM [facility] Hematology/Oncology [address] [place] [address] Luis M Silvestre, [address] [place] [address] VV FOLLOW UP07/25/2025 1:15 PM ESTOffice Visit [facility] [address] [place] [address] [place] [address] lab follow up and chemotx Uzywmo5807/25/2025 1:40 PM ESTVisit (SP) Office Hematology/Oncology [address] [facility] [place] [address] Miguel Sheridan MD [address] [address] lab follow up and chemotx Gutdyd3207/25/2025 2:30 PM [facility] Hematology/Oncology [address] [place] [address] [place] [address] lab follow up and chemotx Kmukig6708/29/2025 10:30 AM ESTOffice Visit Palliative Medicine [address] [facility] [place] [address] Dianne Keller APRN.CHECKROOM ATTENDANT [address] [place] [address] 3 month follow up09/19/2025 1:40 PM ESTOffice Visit Endocrinology [address] [facility] [place] [address] Shawna Card MD, PhD [address] [facility] [place] [address] Return in about 6 months (around 09/14/2025).documented as of this encounter Visit Diagnoses Not on filedocumented in this encounter Care Teams Team MemberRelationshipSpecialtyStart DateEnd Date Gerson Gonzalez Jr., DO [facility] [place] [address] PCP - General08/24/01 Gerson Gonzalez Jr., DO [address] [place] [phone] ReferringInternal Qtbwtpgy11/18/24 Ghislaine Thakur RN [address] [facility] [place] [address] Specialty Care CoordinatorHematology/Oncology08/31/24 Nicholas Gracia MD [address] [facility] [place] [address] PhysicianHematology/Oncology08/31/24 Dianne Keller APRN.CHECKROOM ATTENDANT [address] [facility] [place] [address] Hospice & Palliative Medicine08/31/24 Danielle Castellon LSW Social Worker09/29/24 Ramone Marcos RN Specialty Care CoordinatorHospice & Palliative Stlohojf29/13/25documented as of this encounter
--- OUTSIDE RECORDS SUMMARY | 2025-07-17 07:58 | XMS_ITS | Clinical Summary ---
Author Organization [facility] Address [address] [place] [address] Care Team Providers Care Propulsion Systems Engineer Name Role Phone Unavailable Primary Care Provider Unavailabl e Social History Tobacco UseTypesPacks/DayYears UsedDateSmoking Tobacco: Never Assessed CommentsUnknownSex and Gender InformationValueDate RecordedSex Assigned at Not on fileLegal CmzSdoxan18/29/2022 9:53 PM EDTGender IdentityNot on fileSexual OrientationNot on file Plan of Treatment Not on file
--- OUTSIDE RECORDS SUMMARY | 2025-07-17 07:58 | XMS_ITS | Encounter Summary ---
Author Organization [facility] Address [address] [place] [address] Care Team Providers Care Blood Bank Business Manager Name Role Phone Lisa Carson DO, Charles Lewis Primary Care Provi heladio Lisa Carson DO, Charles Lewis Unavailable [phone] Ghislaine Thakur RN Unavailable [phone] Nicholas Gracia MD Unavailable [phone] Dianne Keller APRN.SHEET METAL INSULATOR Unavailable + Danielle Castellon Unavailable Unavailable Ramone Marcos RN Unavailable Unava ilable Source Comments In the event this information is protected by the Federal Confidentiality of Alcohol and Drug AbusePatient Records regulations: The Federal rules restrict any use of the information to criminally investigate or prosecute any alcohol or drug abuse patient.[facility] Encounter Details DateTypeDepartmentCare Team (Latest Contact Info)Cigfbrhmgdb67/17/2025Orders Only Hematology/Oncology [address] [place] [address] [place] [address] Jessica Hernández, [facility] [address] [place] [address] Social History Tobacco UseTypesPacks/DayYears UsedDateSmoking Tobacco: FormerCigarettes1.518 07/20/1981 - 07/20/1999Smokeless Tobacco: NeverAlcohol UseStandard Drinks/Week CommentsNo0 (1 standard drink = 0.6 oz pure alcohol)PHQ-2AnswerDate RecordedPHQ- 2 /16/2025Area Deprivation IndexAnswerDate RecordedNational Score (1- 100), lower number is lower ilfs720204/10/2023State Score (1-10), lower number is lower aygx8623Data from: https://www.neighborhoodatlas.medicine.[facility].edu/. Last address used for c[address]3CommentsNoSex and Gender Information ValueDate RecordedSex Assigned at BirthNot on fileLegal IxyQawyzr83/02/2012 9:48 AM ESTGender UcnizyyrDkogqq81/26/2022 11:07 AM EDTSexual OrientationNot on file OccupationIndustryJob Start DateJob End DatedisabledNot on fileNot on fileNot on filedocumented as of this encounter Functional Status * Are you deaf or do you have serious difficulty hearing?AnswerDate of ExochjaemjYaajbwKkz21/27/2015 12:58 PM Penny Wills MA * Are you blind or do you have serious difficulty seeing, even when wearing glasses?AnswerDate of HtngbnflnyFebwqcFpb23/27/2015 12:58 PM Penny Wills MA * Do you have serious difficulty walking or climbing stairs?AnswerDate of FqliljfhykPclcfhVr84/27/2015 12:58 PM Penny Wills MA * Do you have difficulty dressing or bathing?AnswerDate of AssessmentAuthorNo 09/15/2014 12:58 PM Penny Wills MA * Because of a physical, mental, or emotional condition, do you have difficulty doing errands alone such as visiting a doctor's office or shopping?AnswerDate of IhpieayyvbKvdlfuGsb68/27/2015 12:58 PM Penny Wills MA documented as of this encounter Mental Status * Because of a physical, mental, or emotional condition, do you have serious difficulty concentrating, remembering, or making decisions?AnswerEntry Date HmdeczGi14/27/2015 12:58 PM Penny Wills MA documented in this encounter Plan of Treatment DateTypeDepartmentCare Team (Latest Contact Info)Zbjhwlfsmic82/30/2025 2:15 PM ESTOffice Visit [facility] [address] [facility] [place] [address] follow up ynwwumrqmub83/30/2025 2:30 PM ESTVisit (SP) Office Hematology/Oncology [address] [place] [address] [place] [address] Vicki Soriano APRN.SHEET METAL INSULATOR [address] [facility] [place] [address] follow up ipbnpbfqwuv17/30/2025 3:00 PM [facility] Hematology/Oncology [address] [place] [address] [place] [address] follow up gddrevazdbl68/31/2025 1:00 PM [facility] Hematology/[place] [address] Luis M Silvestre, [address] [place] [address] VV FOLLOW UP07/25/2025 1:15 PM ESTOffice Visit [facility] [address] [facility] [place] [address] lab follow up and chemotx Iljbza7007/25/2025 1:40 PM ESTVisit (SP) Office Hematology/Oncology [address] [facility] [place] [address] Miguel Sheridan MD [address] [facility] [place] [address] lab follow up and chemotx Tlnppz8007/25/2025 2:[address] [facility]On[facility] [address] [facility] [place] [address] lab follow up and chemotx Nxkumy0308/29/2025 10:30 AM ESTOffice Visit Palliative Medicine [address] [place] [address] [place] [address] Dianne Keller APRN.SHEET METAL INSULATOR [address] [place] [address] 3 month follow up09/19/2025 1:40 PM ESTOffice Visit Endocrinology [address] [place], [place] [id number] Shawna Card MD, PhD [address] [place], [place] [id number] Return in about 6 months (around 09/14/2025).documented as of this encounter Visit Diagnoses Not on filedocumented in this encounter Care Teams Team MemberRelationshipSpecialtyStart DateEnd Date Gerson Gonzalez Jr., DO [address] [facility] [place] [place] [phone] PCP - General08/24/01 Gerson Gonzalez Jr., DO [address] [facility] [place] [address] ReferringInternal Bsbehvji27/18/24 Ghislaine Thakur RN [address] [facility] [place] [address] Specialty Care CoordinatorHematology/Oncology08/31/24 Nicholas Gracia MD [address] [place] [address] [place] [address] PhysicianHematology/Oncology08/31/24 Dianne Keller APRN.SHEET METAL INSULATOR [address] [place] [address] [place] [address] Hospice & Palliative Medicine08/31/24 Danielle Castellon LSW Social Worker09/29/24 Ramone Marcos, RN Specialty Care CoordinatorHospice & Palliative Niqisenk87/13/25documented as of this encounter
--- OUTSIDE RECORDS SUMMARY | 2025-07-17 07:58 | XMS_ITS | Encounter Summary ---
Author Organization [facility] Address [address] [place] [address] Care Team Providers Care Tape Stringer Name Role Phone Lisa Carson DO, Charles Lewis Primary Care Provi heladio Lisa Carson DO, Charles Lewis Unavailable [phone] Ghislaine Thakur RN Unavailable [phone] Nicholas Gracia MD Unavailable [phone] Dianne Keller APRN.[facility] BURNER BEEH[facility] KILN Unavailable + Danielle Castellon Unavailable Unavailable Ramone Marcos RN Unavailable Unava ilable Source Comments In the event this information is protected by the Federal Confidentiality of Alcohol and Drug AbusePatient Records regulations: The Federal rules restrict any use of the information to criminally investigate or prosecute any alcohol or drug abuse patient.[facility] Encounter Details DateTypeDepartmentCare Team (Latest Contact Info)Qzzmgnkmgaf69/17/2025Telephone Hematology/Oncology [address] [place] [address] [place] [address] Nicholas Gracia MD [address] [place] [address] Social History Tobacco UseTypesPacks/DayYears UsedDateSmoking Tobacco: FormerCigarettes1.518 07/20/1981 - 07/20/1999Smokeless Tobacco: NeverAlcohol UseStandard Drinks/Week CommentsNo0 (1 standard drink = 0.6 oz pure alcohol)PHQ-2AnswerDate RecordedPHQ- 2 /16/2025Area Deprivation IndexAnswerDate RecordedNational Score (1- 100), lower number is lower nzye19423State Score (1-10), lower number is lower zibp6993Data from: https://www.neighborhoodatlas.[facility]/. Last address used for r[address]3CommentsNoSex and Gender Information ValueDate RecordedSex Assigned at BirthNot on fileLegal YppYohvoo68/02/2012 9:48 AM ESTGender WcqpiffoMoiaah91/26/2022 11:07 AM EDTSexual OrientationNot on file OccupationIndustryJob Start DateJob End DatedisabledNot on fileNot on fileNot on filedocumented as of this encounter Functional Status * Are you deaf or do you have serious difficulty hearing?AnswerDate of EjxfmxzqbcCyxlduJpr90/27/2015 12:58 PM Penny Wills MA * Are you blind or do you have serious difficulty seeing, even when wearing glasses?AnswerDate of BonddqpzeoMqxiznTnu52/27/2015 12:58 PM Penny Wills MA * Do you have serious difficulty walking or climbing stairs?AnswerDate of KmjyanswpcHgteakGr70/27/2015 12:58 PM Penny Wills MA * Do you have difficulty dressing or bathing?AnswerDate of AssessmentAuthorNo 09/15/2014 12:58 PM Penny Wills MA * Because of a physical, mental, or emotional condition, do you have difficulty doing errands alone such as visiting a doctor's office or shopping?AnswerDate of CwlvrzdrozJkzjmbYxj08/27/2015 12:58 PM Penny Wills MA documented as of this encounter Mental Status * Because of a physical, mental, or emotional condition, do you have serious difficulty concentrating, remembering, or making decisions?AnswerEntry Date OympoqYs20/27/2015 12:58 PM Penny Wills MA documented in this encounter Miscellaneous Notes * Telephone Encounter - Vielka Oviedo - 07/05/2025 1:27 PM EST Scheduled 07/11/25. Vielka Oviedo * Telephone Encounter - Nicholas Gracia MD - 07/05/2025 9:19 AM EST D/c Docetaxel Ramucirumab. Please load single agent gemzar in [place] and schedule it next week. Thank you documented in this encounter Plan of Treatment DateTypeDepartmentCare Team (Latest Contact Info)Zdzfbvrlprw34/30/2025 2:15 PM ESTOffice Visit [facility] [address] [place] [address] follow up pkwgvhqyqjw46/30/2025 2:30 PM ESTVisit (SP) Office Hematology/Oncology [address] [facility] [place] [address] Vicki Soriano APRN.[facility] BUR[facility]EEH[facility] KILN [address] [facility] [place] [place] [address] follow up onrmmfvvmbh70/30/2025 3:00 PM ESTInfusion Center Hematology/Oncology [address] [place] [place] [address] follow up nvpgjwmigpf34/31/2025 1:00 PM [facility] Hematology/[place] [address] Luis M Silvestre, [address] [place] [address] VV FOLLOW UP07/25/2025 1:15 PM ESTOffice Visit [facility] [address] [place] [address] [place] [address] lab follow up and chemotx Vbtpbz1907/25/2025 1:40 PM ESTVisit (SP) Office Hematology/Oncology [address] [place] [address] [place] [address] Miguel Sheridan MD [address] [place] [address] [place] [address] lab follow up and chemotx Lkrjud5007/25/2025 2:30 PM [facility] Hematology/Oncology [address] [place] [address] [place] [address] lab follow up and chemotx Vybjwu3208/29/2025 10:30 AM ESTOffice Visit Palliative Medicine [address] [place] [address] [place] [address] Dianne Keller, CALENDER MACHINE OPERATOR.[employer] BUR[employer] BEEH[employer] KILN [address] [place] [address] 3 month follow up09/19/2025 1:40 PM ESTOffice Visit Endocrinology 57[address] [place], [place] [address] Shawna Card MD, PhD [address] [place] [address] Return in about 6 months (around 09/14/2025).documented as of this encounter Visit Diagnoses Not on filedocumented in this encounter Care Teams Team MemberRelationshipSpecialtyStart DateEnd Date Gerson Gonzalez Jr., DO [address] [place] [phone] PCP - General08/24/01 Gerson Gonzalez Jr., DO [address] [place] [address] ReferringInternal Kyfgpxkv75/18/24 Ghislaine Thakur RN [address] [place] [address] [place] [address] Specialty Care CoordinatorHematology/Oncology08/31/24 Nicholas Gracia MD [address] [place] [address] [place] [address] PhysicianHematology/Oncology08/31/24 Dianne Keller APRN.[employer] BUR[employer] BEEH[employer] KILN [address] [place] [address] [place] [address] Hospice & Palliative Medicine08/31/24 Danielle Castellon LSW Social Worker09/29/24 Ramone Marcos RN Specialty Care CoordinatorHospice & Palliative Hsbidqxt95/13/25documented as of this encounter
--- OUTSIDE RECORDS SUMMARY | 2025-07-17 07:59 | XMS_ITS | Clinical Summary ---
Author Organization [facility] Address [address] [place] [address] Care Team Providers Care Casing Finisher And Stuffer Name Role Phone Lisa Carson DO, Charles Lewis Primary Care Provi heladio Lisa Carson DO, Charles Lewis Unavailable +[phone] Ghislaine Thakur RN Unavailable Nicholas Gracia MD Unavailable [phone] Dianne Keller APRN.SQE Unavailable + Danielle Castellon Unavailable Unavailable Ramone [...] mg tablet PLEASE SEE ATTACHED FOR DETAILED PXEDKVUHCA17/26/2025tive loratadine (CLARITIN) 10 mg tablet Loratadine 10 mg tablet Active 10 MG PO February 06, 2025 12:00am Complies with drug arqwcfq26/21/2025Active diphenhydrAMINE 12.5 mg/5 mL lidocaine visc 2% [...] days. 120 tablet 05/30/2025 1:39 PM EST5Active Klmwhtjwitsfccr-Nynnltl-RF (ROBITUSSIN DAC) 30-10-100 mg/5 mL solution Indications:Squamous [...] Active Problems ProblemNoted DateDiagnosed DateModerate recurrent major whhfxwxuty19/30/2025 Malignant neoplasm of overlapping sites of right lung08/23/2024Obesity, Class I, BMI 30-34.9011/12/2021Vasomotor symptoms due to xgdmnbzyd16/26/2022Multiple thyroid leeumpq8411/12/2021Vertical rcihsynlf94/04/2014Unspecified disorder of muscle, ligament, and hxyobr7411/04/2012Myalgia and myositis, unspecified 05/07/2011rticular disc disorder (reducing or non-reducing) of temporomandibular joint04/24/20109858Oftxnjo57/08/2010Cranial nerve paralysis 06/05/2009Paralytic strabismus, sixth or abducens nerve palsy06/01/2008 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 Post-op had deficits including left hemiparesis, left facial droop, dysarthria, diplopia. 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 Anxiety state, unspecified Encounters DateTypeDepartmentCare ZildKufxhxnqywl42/24/2025 8:10 AM EST - 07/12/2025 11:59 PM ESTHospital Encounter Radiology Pet CT [address] [place] [address] Localized enlarged lymph nodes [R59.0] Discharge Disposition: Home07/12/20259887Nlgznc30/23/2025 1:30 PM ESTInfusion Center Hematology/Oncology [address] [place] [address] [place] [address] Malignant neoplasm of overlapping sites of right lung (HCC) (Primary Dx) 07/11/2025 1:00 PM ESTVisit (SP) Office Hematology/Oncology [address] [place] [address] [place] [address] Vicki Soriano APRN.SQE Malignant neoplasm of overlapping sites of right lung (HCC) (Primary Dx); Metastatic cancer to bone (HCC); Hypothyroidism due to medication; 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); Localized enlarged lymph nodes07/11/20257508Foptln06/22/2025Education Hematology/Oncology [address] [place] [address] Ghislaine Thakur, RN First Time Treatment Vsajkauvv83/18/2025Telephone Hematology/Oncology [address] [place] [address] [place] [address] Danielle Castellon LSW 07/05/2025 9:20 AM ESTVisit (SP) Office Hematology/Oncology [address] [place] [address] [place] [address] Nicholas Gracia MD Malignant neoplasm of overlapping sites of right lung (HCC) (Primary Dx) 07/05/2025Orders Only Hematology/Oncology [address] [place] [address] [place] [address] Kaylyn Cox, [facility] 07/05/2025Orders Only Hematology/Oncology [address] [place] [address] [place] [address] Jessica Hernández, [facility] 07/05/2025Telephone Hematology/Oncology [address] [place] [address] [place] [address] Nicholas Gracia MD 07/04/2025Telephone Hematology/Oncology [address] [place] [address] Annamarie Lal RN 07/01/2025 Patient Msg Hematology/Oncology [address] [place] [address] Nicholas Gracia MD Appointment Ticilrw6606/23/2025 11:30 AM EST - 06/23/2025 12:30 PM ESTSurgery [facility] [address] [place] [address] Jackie Osorio MD BIOPSY OR EXCISION LYMPH NODES(S) NEEDLE TKGFKVYCEVQ61/05/2025 10:50 AM EST - 06/23/2025 11:59 AM ESTHospital Encounter [facility] [address] [place] [address] Jackie Osorio MD Malignant neoplasm of overlapping sites of right lung (HCC) [C34.81] Discharge Disposition: Home06/23/20251954Ekqjtq24/03/2025 Patient Msg [facility] [address] [place] [address] Provider, [facility] Preprocedural instructions for June 23Telephone [facility] [address] [place] [address] Clovis Molina, practical nursing instructor Pre Procedure Ipvyohexqtek00/02/2025 1:00 PM ESTVisit (SP) Office Hematology/Oncology [address] [place] [address] Nicholas Gracia MD Malignant neoplasm of overlapping sites of right lung (HCC) (Primary Dx) 06/20/2025Telephone Cancer Appts [address] [place] [address] Rodolfo Valdez MD Biopsy Akrcyab7606/13/2025 1:11 PM EST - 06/13/2025 11:59 PM ESTHospital Encounter Radiology Pet CT [address] [place] [address] 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) [C34.92] Discharge Disposition: Home06/13/2025Telephone Hematology/Oncology [address] [place] [address] Nicholas Gracia MD Lab Evekvz8006/12/2025 12:34 PM EST - 06/12/2025 11:59 PM ESTHospital Encounter Radiology [address] [place] [address] Multiple thyroid nodules [E04.2] Discharge Disposition: Home06/12/2025Radiology Radiology [address] [place] [address] Jess Rush RDMS Radiology US06/11/20257988Aeybmi79/11/2025 11:30 AM [facility] Hematology/Oncology [address] [place] [address] [place] [address] Malignant neoplasm of overlapping sites of right lung (HCC) (Primary Dx) 05/30/2025 11:00 AM ESTVisit (SP) Office Hematology/Oncology [address] [place] [address] [place] [address] Evelina Harrison, MANUAL WRITER.SQE Malignant neoplasm of overlapping sites of right lung (HCC) (Primary Dx); Metastatic cancer to bone (HCC); 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); Encounter for antineoplastic chemotherapy; Chemotherapy-induced fatigue; Mucositis due to antineoplastic therapy; Azhqemxke11/11/2025 10:30 AM ESTOffice Visit Palliative Medicine [address] [place] [address] [place] [address] Dianne Keller, MANUAL WRITER.SQE Chronic cough (Primary Dx); Metastatic cancer to bone (HCC); Neoplasm related pain; Palliative care by specialist; Chronic obstructive pulmonary disease, unspecified COPD type (HCC); SOB (shortness of breath); Secondary malignant neoplasm of unspecified site (HCC); Lung mass; Constipation due to opioid therapy; Chemotherapy-induced uuczsi1105/30/20259570Nxihfi56/03/2025Telephone Hematology/Oncology [address] [place] [address] [place] [address] Annamarie Lal, MEKHI 05/09/2025 1:30 PM [facility] Hematology/Oncology [address] [place] [address] [place] [address] Malignant neoplasm of overlapping sites of right lung (HCC) (Primary Dx) 05/09/2025 1:00 PM EDTVisit (SP) Office Hematology/Oncology [address] [place] [address] [place] [address] Nicholas Gracia MD 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) (Primary Dx); Malignant neoplasm of overlapping sites of right lung (HCC)05/09/2025Telephone Hematology/Oncology [address] [place] [address] [place] [address] Talia Flores, MEKHI Patient Update (Photosensitivity)05/09/2025Orders Only Hematology/Oncology [address] [place] [address] [place] [address] Nicholas Gracia MD 05/09/20251246Dgpoqc93/20/2025Telephone Hematology/Oncology [address] [place] [address] [place] [address] Nicholas Gracia MD Lab Zuegol4405/07/20259472Vanzjh31/07/2025 11:30 AM EDTVisit (SP) Office Hematology/Oncology [address] [place] [address] [place] [address] Josie Arcos PA-C Malignant neoplasm of overlapping sites of right lung (HCC) (Primary Dx); Chemotherapy-induced neutropenia; Mucositis due to antineoplastic ayhrjbg9204/25/2025Telephone Hematology/Oncology [address] [place] [address] [place], [place] [id number] Ghilsaine Thakur RN Care Coordination (C1D1 treatment follow up call)04/18/2025 11:30 AM EDTInfusion Center Hematology/Oncology [address] [place] [address] [place] [address] Malignant neoplasm of overlapping sites of right lung (HCC) (Primary Dx) 04/18/2025 11:00 AM EDTVisit (SP) Office Hematology/Oncology [address] [place] [address] [place], [place] [id number] Josie Arcos PAKelly Moderate recurrent major depression (HCC) (Primary Dx); 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); Acute cough04/18/2025 9:15 AM EDTOffice Visit PULMONARY [address] [place] [address] [place] [address] Brynn Manjarrez MD Cough, unspecified type (Primary Dx); History of tobacco use04/18/2025 8:45 AM EDTProcedure PULMONARY [address] [place] [address] Jwxvnewvsj69/30/2025 8:15 AM EDTProcedure PULMONARY [address] [place] [address] Wlclicygid03/30/2025Telephone Hematology/Oncology [address] [place] [address] Nicholas Gracia MD 04/18/2025Travelfrom Last 3 Months [...] drink = 0.6 oz pure alcohol)PHQ-2AnswerDate RecordedPHQ-2 /16/2025Area Deprivation Index AnswerDate RecordedNational Score (1-100), lower number is lower risk87 04/10/2023State Score (1-10), lower number is lower pvtf0483Data from: https://www.neighborhoodatlas.medicine.[facility].edu/. Last address used for spcdznk[address]yu[address]04/10/2023CommentsNoSex and Gender Information ValueDate RecordedSex Assigned at BirthNot on fileLegal TntQiwkmy94/02/2012 9:48 AM ESTGender FuqmrnviFqgmhr87/26/2022 11:07 AM EDTSexual OrientationNot on file OccupationIndustryJob Start DateJob End DatedisabledNot on fileNot on fileNot on file Last Filed Vital Signs Vital SignReadingTime TakenCommentsBlood Zxferont192/6507/11/2025 12:52 PM EST Lxpap831107/11/2025 12:52 PM WZJBczmnngqmva27.4 ??C (97.6 ??F)07/11/2025 12:52 PM ESTRespiratory Qkdh941209/11/2024 12:52 PM ESTOxygen Qjllfriivn23%07/11/2025 12:52 PM ESTInhaled Oxygen Concentration--Noaonf80.6 kg (168 lb 14 oz)07/11/2025 1:53 PM AMVGgmuis481.5 cm (5' 8.31 )07/11/2025 1:53 PM ESTverified by 2RNsBody Mass Index25.45109/11/2024 1:53 PM EST Plan of Treatment DateTypeDepartmentCare Team (Latest Contact Info)Ndmmjmplbcl13/30/2025 2:15 PM ESTOffice Visit [facility] [address] [place] [address] [place] [address] follow up czpwemdxwyv63/30/2025 2:30 PM ESTVisit (SP) Office Hematology/Oncology [address] [place] [address] Vicki Soriano, MANUAL WRITER.SQE [address] [place] [address] follow up jdrexlfbftt58/30/2025 3:00 PM ESTInfusion Center Hematology/Oncology [address] [place] [address] follow up qmhatxbcuxt91/31/2025 1:00 PM ESTBoston [facility] [address] Luis M Silvestre DO [address] [place] [address] VV FOLLOW UP07/25/2025 1:15 PM ESTOffice Visit [facility] [address] [place] [address] [place] [address] lab follow up and chemotx Jupfpi9307/25/2025 1:40 PM ESTVisit (SP) Office Hematology/Oncology [address] [place] [address] [place] [address] Miguel Sheridan MD [address] [place] [address] [place] [address] lab follow up and chemotx Ctjdvf9407/25/2025 2:30 PM [facility] Hematology/Oncology [address] [place] [address] [place] [address] lab follow up and chemotx Yqwrsz2208/29/2025 10:30 AM ESTOffice Visit Palliative Medicine [address] [place] [address] [place] [address] Dianne Keller, MANUAL WRITER.SQE [address] [phone] 3 month follow up09/19/2025 1:40 PM ESTOffice Visit Endocrinology [address] [place], [place] [phone] Shawna Card MD, PhD [address] [place], [place] [phone] Return in about 6 months (around 09/14/2025).Health MaintenanceDue DateLast Done CommentsCervical Cancer Xufsmgmcv37/07/1968Annual PCP Team Chronic Disease Visit 1974Hepatitis C Aknfjbwbf18/07/1975DTaP,Tdap,Td Vaccine (1 - Tdap) 09/24/1975Pneumococcal Vaccine: 50+ (1 of 2 - PCV)09/24/1975Shingrix Vaccine (1 of 2)09/24/1975CT Vrvdnjpepwpa95/07/5762Uclfwacwkyl45/07/2002Fecal Occult Blood 2001Lipid Lrglhkpue54/07/2937Qgdnftejwdohy91/07/2002Medicare Annual Wellness Visit06/19/2005RSV Vaccine (1 - Risk 50-74 years 1-dose series) 2006Bone Density Tgetydjjh40/07/2022Mammogram Wjdhhxhbi48/21/2023 11/07/2021, 11/07/2021, 10/27/2017, Additional history existsAdvance Directive Jjhhndcsye26/01/2025Covid-19 Vaccine ( season)/, 01/08/2021, 10/08/2020Influenza Vaccine (#1)2025ologuard (FIT-DNA) , 04/24/2021olorectal Cancer Beqipwdhq96/30/2027Diabetes Jztsyubku97, 06/20/2025, 05/30/2025, Additional history exists Medical Devices ImplantedTypeAreaManufacturerDevice IdentifierShelf Expiration DateModel / Serial / LotGold Eyelid Weight 1.0g - [id number] [facility]plantRight: [id number] / / Procedures Procedure NamePriorityDate/TimeAssociated DiagnosisCommentsCT NECK SOFT TISSUE W JACIGCitbpvk50/24/2025 8:38 AM EST Localized enlarged lymph nodes TSH CMRLesmvvt81/23/2025 12:45 PM EST Malignant neoplasm of overlapping sites of right lung (HCC) Metastatic cancer to bone (HCC) Encounter for antineoplastic chemotherapy Hypothyroidism due to medication MAGNESIUM POTHpfpssg20/23/2025 12:45 PM EST Malignant neoplasm of overlapping sites of right lung (HCC) Metastatic cancer to bone (HCC) Encounter for antineoplastic chemotherapy COMPREHENSIVE METABOLIC YOKUMHzyxqmq68/23/2025 12:45 PM EST Malignant neoplasm of overlapping sites of right lung (HCC) Metastatic cancer to bone (HCC) Encounter for antineoplastic chemotherapy CBC + OSRUJdutlbp21/23/2025 12:45 PM EST Malignant neoplasm of overlapping sites of right lung (HCC) Metastatic cancer to bone (HCC) Encounter for antineoplastic chemotherapy REFERRAL FOR ADDITIONAL BIOMARKER AND MOLECULAR EXADDEDIcwflkd91/17/2025 12:54 PM EST Malignant neoplasm of overlapping sites of right lung (HCC) IMAGING GUIDED BIOPSY CERVICAL LYMPH NODE06/23/2025 11:52 AM EST HER2 BY IHC NON UARPGMDorprui42/05/2025 11:49 AM EST Malignant neoplasm of overlapping sites of right lung (HCC) FLOW CYTOMETRY FOR LEUKEMIA/LYMPHOMA (FCLL) UHCUVMApgncep93/05/2025 11:49 AM EST Malignant neoplasm of overlapping sites of right lung (HCC) SURGICAL WJQMQHYALJbyiqli90/05/2025 11:49 AM EST Malignant neoplasm of overlapping sites of right lung (HCC) BX/EXC LYMPH NODE NEEDLE IKRYJJNHVOI76/05/2025 11:15 AM EST Malignant neoplasm of overlapping sites of right lung (HCC) MAGNESIUM RNEEahxqel20/02/2025 12:35 PM EST Malignant neoplasm of overlapping sites of right lung (HCC) Malaise and fatigue TSH PIPNvhmlcf05/02/2025 12:35 PM EST Malignant neoplasm of overlapping sites of right lung (HCC) Malaise and fatigue COMPREHENSIVE METABOLIC LDSUKWckwmdc61/02/2025 12:35 PM EST Malignant neoplasm of overlapping sites of right lung (HCC) Malaise and fatigue CBC + HZWYMebggxm29/02/2025 12:35 PM EST Malignant neoplasm of overlapping sites of right lung (HCC) Malaise and fatigue NM PET/CT SKULL-THIGH GOPLGFOXUBJpyhpgo68/25/2025 3:10 PM EST 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) GLUCOSE, BLOOD (POC)Szefjiv8906/13/2025 1:31 PM EST US THYROID/TKYUPBBURYLIgonkrx04/24/2025 1:25 PM EST Multiple thyroid nodules COMPREHENSIVE METABOLIC PATFGOgifvve03/11/2025 10:14 AM EST 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) CBC + KLABYbqsvig97/11/2025 10:14 AM EST 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) CBC + UFJLCboduss89/21/2025 12:43 PM EDT Malignant neoplasm of overlapping sites of right lung (HCC) COMPREHENSIVE METABOLIC REFTAVbfhyyq29/21/2025 12:43 PM EDT Malignant neoplasm of overlapping sites of right lung (HCC) CBC + HXRESnzsoov47/07/2025 11:16 AM EDT 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) Acute cough COMPREHENSIVE METABOLIC GZHWFKmjxhin88/07/2025 11:16 AM EDT 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) Acute cough COMPREHENSIVE METABOLIC LMJKKMbltlkt28/30/2025 9:40 AM EDT 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) CBC + JMKBYrpbgoj78/30/2025 9:40 AM EDT 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) NITRIC OXIDE, POIYDHCKukzbib05/30/2025 8:46 AM EDT Acute cough SPIROMETRY - BASELINE AND POST WZUNQVVPlodpgi21/30/2025 8:22 AM EDT Acute cough from Last [...] any questions regarding this interpretation, please call [phone]. If you are unable to reach us at the number above, please feel free to contact [facility] at [phone]. Narrative 07/12/2025 9:49 AM EST * * [...] this is only marginally included in the vxvlm-kl-axos on the planar reconstructions. Lung apices: There [...] study.. Other: Not applicable. Procedure Note Provider, [facility] - 07/12/2025 * * *Final Report* * * DATE OF EXAM: Jul 12 2025 8:38AM [facility] 0013 - CT NECK SOFT TISSUE W [...] this is only marginally included in the bhgcl-ur-mgzg on the planar reconstructions. Lung apices: There [...] any questions regarding this interpretation, please call [phone]. If you are unable to reach us at the number above, please feel free to contact [facility] at [phone]. Authorizing ProviderResult TypeResult StatusHolly Bo PRINCE.CNPCT-PAMAFinal Result * MAGNESIUM (07/11/2025 12:45 PM EST) Only the most recent of2 resultswithin the time period is included. ComponentValueRef RangeTest MethodAnalysis TimePerformed AtPathologist Signature Magnesium1.71.7 - 2.3 mg/dL07/11/2025 1:26 PM ESTNORTTRINITY HEALTH LIVONIA LABSpecimen (Source)Anatomical Location / LateralityCollection Method / VolumeCollection TimeReceived TimeBloodBLOOD SPECIMEN / UnknownVenipuncture / Zomoynq2407/11/2025 12:45 PM EST07/11/2025 12:45 PM EST Narrative Authorizing ProviderResult TypeResult StatusJoseafshan Sheridan MDLABORATORYFinal ResultPerforming OrganizationAddressCity/State/ZIP CodePhone Number [facility] [address] [place] [address] * (ABNORMAL) THYROID STIMULATING HORMONE (07/11/2025 12:45 PM EST) Only the most recent of2 resultswithin the time period is included. ComponentValueRef RangeTest MethodAnalysis TimePerformed AtPathologist Signature TSH6.140(H)0.270 - 4.200 mIU/L109/12/2024 5:05 AM EST [facility]IN [facility] Specimen (Source)Anatomical Location / LateralityCollection Method / Volume Collection TimeReceived TimeBloodBLOOD SPECIMEN / UnknownVenipuncture / Unknown 07/11/2025 12:45 PM EST07/11/2025 12:45 PM EST Narrative Authorizing ProviderResult TypeResult StatusJojovanny Sheridan MDLABORATORYFinal ResultPerforming OrganizationAddressCity/State/ZIP CodePhone Number MAIN LAB [address] [phone], * (ABNORMAL) COMPREHENSIVE METABOLIC PANEL (07/11/2025 12:45 PM EST) Only the most recent of6 resultswithin the time period is included. ComponentValueRef RangeTest MethodAnalysis TimePerformed AtPathologist Signature Protein, Total6.66.3 - 8.0 g/dL07/11/2025 1:26 PM ESTNORTTRINITY HEALTH LIVONIA LABAlbumin3.3(L)3.9 - 4.9 g/dL07/11/2025 1:26 PM ESTCABELL [facility] LABCalcium, Total9.38.5 - 10.2 mg/dL07/11/2025 1:26 PM EST [facility] LABBilirubin, Total0.20.2 - 1.3 mg/dL 07/11/2025 1:26 PM ESTNORTTRINITY HEALTH LIVON[facility] LABAlkaline Phosphatase 9834 - 123 U/L109/11/2024 1:26 PM ESTNORTTRINITY HEALTH [facility] UDLJBX0959 - 35 U/L109/11/2024 1:26 PM ESTRTTRINITY [facility]ALTH [facility] YMRJOV0876 - 35 U/L109/11/2024 1:26 PM ESTNORTTRINITY HEALTH [facility] ROBHpibova3643 - 99 mg/dL07/11/2025 1:26 PM ESTRTTRINITY HEALTH LIVONIA LABComment: The [place] Diabetes Association (ADA) provides guidance for cutoff [...] Standards of Medical Care in Diabetes 2016, [place] [employer]. Diabetes Care. 2016.39(Suppl 1). RCF580 - 21 mg/dL07/11/2025 1:26 PM [facility] Creatinine0.54(L)0.58 - 0.96 mg/dL07/11/2025 1:26 PM [facility] WRTDmabxy516681 - 144 mmol/L109/11/2024 1:26 PM [facility] LABPotassium4.13.7 - 5.1 mmol/L109/11/2024 1:26 PM EST [facility] MCGOcmpckke1168 - 107 mmol/L109/11/2024 1:26 PM [facility] BRZUD32320 - 30 mmol/L109/11/2024 1:26 PM [facility] LABAnion Flk945 - 15 mmol/L109/11/2024 1:26 PM [facility] LABEstimated Glomerular Filtration Rate 100>=60 mL/min/1.73m 07/11/2025 1:26 PM [facility] LABComment:Estimated Glomerular Filtration Rate (eGFR) [...] VolumeCollection TimeReceived TimeBloodBLOOD SPECIMEN / UnknownVenipuncture / Whxiosy0507/11/2025 12:45 PM EST07/11/2025 12:45 PM EST Narrative Authorizing ProviderResult TypeResult StatusJoseafshan Sheridan MDLABORATORYFinal ResultPerforming OrganizationAddressCity/State/ZIP CodePhone Number [facility] [address] [place] [address] * (ABNORMAL) COMPLETE BLOOD COUNT AND DIFFERENTIAL (07/11/2025 12:45 PM EST) Only the most recent of6 resultswithin the time period is included. ComponentValueRef RangeTest MethodAnalysis TimePerformed AtPathologist Signature WBC12.50(H)3.70 - 11.00 k/uL07/11/2025 12:48 PM ESTNOSTONEWALL JACK[facility] LABRBC3.71(L)3.90 - 5.20 m/uL07/11/2025 12:48 PM [facility]CAB[facility] QYAVhuennybxi48.4(L)11.5 - 15.5 g/dL07/11/2025 12:48 PM EST [facility] DSUFluwtluoaf72.1(L)36.0 - 46.0 %07/11/2025 12:48 PM [facility] VVDVFG03.980.0 - 100.0 fL 07/11/2025 12:48 PM [facility] BKNJET62.026.0 - 34.0 pg07/11/2025 12:48 PM [facility] FGYVZFS54.530.5 - 36.0 g/dL07/11/2025 12:48 PM [facility] LABRDW-CV18.1 (H)11.5 - 15.0 %07/11/2025 12:48 PM [facility] LAB Platelet Fstgp895(H)150 - 400 k/uL07/11/2025 12:48 PM [facility] LABMPV9.29.0 - 12.7 fL07/11/2025 12:48 PM [facility] LABNeutrophils %80.5%07/11/2025 12:48 PM [facility] LABAbs Neut10.06(H)1.45 - 7.50 k/uL07/11/2025 12:48 PM EST [facility] LABLymphocytes %8.1%07/11/2025 12:48 PM EST [facility] LABAbs Lymph1.011.00 - 4.00 k/uL07/11/2025 12:48 PM [facility] LABMonocytes %8.2%07/11/2025 12:48 PM [facility] LABAbs Mono1.03(H)<0.87 k/uL07/11/2025 12:48 PM [facility] LABEosinophils %2.4%07/11/2025 12:48 PM [facility] LABAbs Eosin0.30<0.46 k/uL 07/11/2025 12:48 PM [facility] LABBasophils %0.3% 07/11/2025 12:48 PM [facility] LABAbs Baso0.04<0.11 k/uL07/11/2025 12:48 PM [facility] LABImmature Granulocytes %0.5%07/11/2025 12:48 PM [facility] LAB Abs Immature Gran0.06<0.10 k/uL07/11/2025 12:48 PM [facility] LABNRBC0.0/100 WBC07/11/2025 12:48 PM [facility] LABAbsolute nRBC<0.01<0.01 k/uL07/11/2025 12:48 PM [facility] LABDiff PaebUspm96/23/2025 12:48 PM [facility] LABSpecimen (Source)Anatomical Location / LateralityCollection Method / VolumeCollection TimeReceived TimeBloodBLOOD SPECIMEN / UnknownVenipuncture / Kcfhnea7707/11/2025 12:45 PM EST07/11/2025 12:45 PM EST Narrative Authorizing ProviderResult TypeResult StatusJoseph N Sheridan MDLABORATORYFinal ResultPerforming OrganizationAddressCity/State/ZIP CodePhone Number [facility] [address] [place] [address] * REFERRAL FOR ADDITIONAL BIOMARKER AND MOLECULAR TESTING (07/05/2025 12:54 PM EST)ComponentValueRef RangeTest MethodAnalysis TimePerformed AtPathologist NwkomliqlSHRQOT86/17/2025 3:25 PM ESTNORTHCOAST [facility]LY [facility] Comment:Request has been received for evaluation and the results will be issued separately.Specimen (Source)Anatomical Location / LateralityCollection Method / VolumeCollection TimeReceived TimeTissuePARAFFIN EMBEDDED TISSUE BLOCK SPECIMEN / Waxtmot3407/05/2025 12:54 PM EST07/05/2025 12:54 PM EST Narrative [facility] - 07/05/2025 3:25 PM EST Authorizing ProviderResult TypeResult StatusAdarsh Vennepureddy MDLABORATORY Final ResultPerforming OrganizationAddressCity/State/ZIP CodePhone Number [facility] [address] [place] [address] * IMAGING GUIDED BIOPSY CERVICAL LYMPH NODE [...] and agree with the report as written. Fish Net Stringer: PSCB ?? Transcribe Date/Time: Jun?2024 11:57A Dictated [...] needle: None Core needle biopsy device: Argon Race Yourselfince Core needle size: 18 gauge Number of [...] performed by the: attending radiologist, without an assistant professor of spanish. The attending radiologist performed the following procedural activities: Entire procedure Procedure Note Provider, [facility] - 06/23/2025 * * *Final Report* * [...] Coaxial needle: None Core needle biopsy device: Avitus Orthopaedicse Core needle size: 18 gauge Number of [...] performed by the: attending radiologist, without an assistant professor of spanish. The attending radiologist performed the following procedural activities: Entire procedure IMPRESSION IMPRESSION: Image-guided biopsy of RIGHT supraclavicular lymph node. Plan: Specimen(s) sent for evaluation. ATTESTATION: Signer name: Jackie Osorio I attest that I was present for the entire procedure. I reviewed the stored images and agree with the report as written. Fish Net Stringer: JEANETTE Transcribe Date/Time: Jun 23 2025 11:57A Dictated by : JACKIE OSORIO MD This examination was interpreted and the report reviewed and electronically signed by: JACKIE OSORIO MD on Jun 23 2025 12:00PM EST Authorizing ProviderResult TypeResult StatusAdarsh Vennepureddy MDUS-PAMAFinal Result * HER2 BY IHC NON BREAST (06/23/2025 11:49 AM EST)ComponentValueRef RangeTest MethodAnalysis TimePerformed AtPathologist SignatureHER2 StatusNegative for HER2 Lakddejvdeeibp25/22/2025 2:14 PM [facility] LABHer2 Score for Enhertu Treatment or Biliary Znzok49409/10/2024 2:14 PM [facility] LABTumor TypeUnresectable or Metastatic Solid Tumor for Possible Enhertu Lpaedwzux11/22/2025 2:14 PM [facility] Case EhlljdZ67-63883533/22/2025 2:14 PM [facility] LABCCF Block IDA1 07/10/2025 2:14 PM [facility] LABFixativeFormalin, 10% Neutral Wzrschxo48/22/2025 2:14 PM [facility] LABInterpretation Comment and Reference RangeReference Ranges for [...] options. The approval is based on the BRICE-AonFfxkh28 clinical trial in which HER2 IHC is interpreted similarly to the College of [place] [employer]ologists, [place] Society for Clinical Pathology, and [place] Society of Clinical Oncology biopsy criteria for gastric/EGJ adenocarcinoma. However, 2+ cases are interpreted as negative for ENHERTU therapy. Additionally, HER2 (ERBB2) amplification status by fluorescence in situ hybridization (FISH) plays no role in determining a patient???s eligibility in (non-breast, non- gastric/EGJ, non-colon) solidtumors. Reference: Nirmala DAVIS, et al. HER2 Testing and Clinical Decision Making in Gastroesophageal Adenocarcinoma: Guideline From the College of [place] Pathologists, [place] Society for Clinical Pathology, and [place] Society of Clinical Oncology. Arch Pathol Lab Med. 2016 Jun;140(12):0240-5681. Jakub F, Marge V, Brendon A, Oh DY, Alfreda S, Brittney??lez-Holland??n A, Alejandro KH, ?mp I, Judith L, Anatoliy A, Jayden B, Arabella S, Kath D, Noah A, Dorota Y, Puvvada S, Rl N, Anastacio SaldañaY. Efficacy and Safety of Trastuzumab Deruxtecan in Patients With HER2-Expressing Solid Tumors: Primary Results From the BRICE-HspJpclf80 Phase II Trial. J Clin Oncol. 2023Jul 20;42(1):47-58. doi: 10.1200/JCO.23.85068. Epub 2022May 11. PMID: 25876702; PMCID: [id number]. FDA product label: https://www.accessdata.fda.gov/drugsatfda_docs/label/2023/463402h548rfj.pdf 07/10/2025 2:14 PM [facility] MAIN LABMethodHER2 (ERBB2) by IHC: FDA cleared: [employer], [place], [place] Primary Antibody:4B5 Antibody and Detection System: [place]'s Pathway anti-HER2 rabbit monoclonal antibody (clone 4B5), were detected with the CakeStyle iView Detection System (indirect biotin streptavidin detection); [place], [place].07/10/2025 2:14 PM EST [facility] LABDisclaimerLaboratory Developed Test (LDT) Disclaimer: Performance characteristics of immunohistochemical, immunofluorescent, and chromogenic in-situ hybridization tests have been determined by the performing laboratory within the [facility] Department of Pathology and Laboratory Medicine ([facility], [facility], [facility], [facility], [facility], [facility], or [facility]) in a manner consistent with CLIA requirements. One or more of these tests may not have been cleared or approved by the FDA. The [facility] Department of Pathology and Laboratory Medicineis regulated under CLIA as qualified to perform high-complexity testing. These tests are used for clinical purposes. These should not be regarded as investigational or for research. Positive and negative controls stain appropriately.07/10/2025 2:14 PM EST [facility] LABPerforming LabDiagnostic interpretation performed at: [facility], [address] [place] [address] CLIA# [id number] Lead Informatica Developer: Josué Bach MD Electronically signed out by: CONNER KHAN MD, PhD07/10/2025 2:14 PM EST [facility] LABSpecimen (Source)Anatomical Location / Laterality Collection Method / VolumeCollection TimeReceived TimeTissueLYMPH NODE BIOPSY SPECIMEN / Wmfqqem4706/23/2025 11:49 AM EST07/06/2025 11:44 AM EST Narrative Authorizing ProviderResult TypeResult StatusEunice Skinny Osorio MDSURGICAL PATHOLOGY Final ResultPerforming OrganizationAddressCity/State/[place] [address], * FLOW CYTOMETRY FOR LEUKEMIA/LYMPHOMA (FCLL) REFLEX (06/23/2025 11:49 AM EST) ComponentValueRef RangeTest MethodAnalysis TimePerformed AtPathologist SignatureInterpretationThere is no immunophenotypic evidence of involvement by a B-cell lymphoproliferative disorder in this limited low cellularity sample. Correlation with the histopathologic and clinical findings is suggested. SB/ACM June 26 5:43 PM [facility] at 1218 ESTResults Specimen type: Lymph node biopsy Morphology comments: See concurrent surgical pathology report ([id number] ) Viability: 100% Lymphocyte gate: 8% of total events A limited flow cytometric analysis was performed on the lymph node biopsy due to very low cell yield. Antibodies to CD5, CD10, CD19, CD20, CD23, CD45, CD123, CD200, and kappa and lambda surface lightchains were used. Few CD5 positive T cells and virtually no B cells are detected.07/04/2025 5:43 PM [facility] LABGross DescriptionA. Lymph Node, Biopsy Received one thread of tissue measuring 1.0 cm in length in RPMI.07/04/2025 5:43 PM [facility] LABDiagnosis CommentThis test was developed and its performance characteristics determined by [facility]'s [facility] [place] ([facility]). It has not been cleared or approved by the FDA. -[facility] is regulated under CLIA as qualified to perform high-complexity testing. Thistest is used for clinical purposes. It should not be regarded as investigational or for research. 07/04/2025 5:43 PM [facility] LABPerforming LabDiagnostic interpretation performed at [facility], [address] [place] [address] CLIA# [id number] Lead Informatica Developer: Josué Bach M.D.07/04/2025 5:43 PM [facility] LABSpecimen (Source)Anatomical Location / LateralityCollection Method / VolumeCollection TimeReceived TimeTissueLYMPH NODE BIOPSY SPECIMEN / Cxyjebl8106/23/2025 11:49 AM EST06/23/2025 3:06 PM ESTComment:Pre-op diagnosis: Malignant neoplasm of overlapping sites of right lung (HCC) [C34.81] Narrative Authorizing ProviderResult TypeResult StatusEunice Skinny Osorio MDSURGICAL PATHOLOGY Final ResultPerforming OrganizationAddressCity/State/ZIP CodePhone Number MAIN [facility] [address] [place] [address], * SURGICAL PATHOLOGY (06/23/2025 11:49 AM EST)ComponentValueRef RangeTest Method Analysis TimePerformed AtPathologist SignatureCase ReportSurgical Pathology Report ? Case: [id number] ? Authorizing Provider: ??Jackie Osorio MD ? Collected: ? 06/23/2025 11:49 AM ? Ordering Location: ? [facility] ?Received: ?06/23/2025 12:10 PM ? RADIOLOGY ? Pathologist: ? Celsa Bey MD ? Specimens: ?? A) - Lymph Node, Biopsy, Right lymph node biopsy ? B) - Lymph Node, Biopsy, Right lymph node biopsy ? 07/04/2025 5:43 PM [facility] LABFINAL DIAGNOSISA, B. Right cervical lymph node, biopsy: - Metastatic carcinoma containing a glandular component, see comment.07/04/2025 5:43 PM [facility] at 1743 ESTDiagnosis CommentThe carcinoma shows similar morphology to the metastasis evaluated previously ([id number]). Immunohi stochemical stains for p40 and TTF [...] Dr. Gracia July 04, 2025.07/04/2025 5:43 PM [facility] LABGross DescriptionA. 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 Biopsy to confirm the diagnosis. LOR07/04/2025 5:43 PM [facility] LABPerforming Lab Diagnostic interpretation performed at: [facility], [facility] [id number] CLIA# [id number] Lead Informatica Developer: Josué Bach MD 07/04/2025 5:43 PM ESTHOLZER HOSPITAL LABDisclaimerLaboratory Developed Test (LDT) Disclaimer: Performance characteristics of immunohistochemical, immunofluorescent, and chromogenic in-situ hybridization tests have been determined by the performing laboratory within the [facility] Department of Pathology and Laboratory Medicine ([facility], [facility], [facility], [facility], [facility], [facility], or [facility]) in a manner consistent with CLIA requirements. One or more of these tests may not have been cleared or approved by the FDA. The [facility] Department of Pathology and Laboratory Medicineis regulated under CLIA as qualified to perform high-complexity testing. These tests are used for clinical purposes. These should not be regarded as investigational or for research. Positive and negative controls stain appropriately.07/04/2025 5:43 PM EST [facility] LABSpecimen (Source)Anatomical Location / Laterality Collection Method / VolumeCollection TimeReceived TimeTissueLYMPH NODE BIOPSY SPECIMEN / Ozhpynt9606/23/2025 11:49 AM EST06/23/2025 12:10 PM ESTComment:Right cervical lymph node biopsyTissue specimen (specimen)LYMPH NODE BIOPSY SPECIMEN / Yspumgk6306/23/2025 11:50 AM EST06/23/2025 12:10 PM ESTComment:Lymphoma work up Narrative Authorizing ProviderResult TypeResult StatusEunice Skinny Osorio MDSURGICAL PATHOLOGY Final ResultPerforming OrganizationAddressCity/State/ZIP CodePhone Number [place] [phone], * NM PET/CT SKULL-THIGH SUBSEQUENT (06/13/2025 3:10 [...] * ??Uptake Time: 58 minutes * ??Radiopharmaceutical: D30-Gipwdfyjxvfubthwiy (FDG) COMPARISON: FDG PET/CT scan dated 04/07/2025 [...] any questions regarding this interpretation, please call [phone]. If you are unable to reach us at the number above, please feel free to contact [facility] at [phone]. Procedure Note Provider, [facility] - 06/13/2025 * * *Final Report* * [...] * Uptake Time: 58 minutes * Radiopharmaceutical: F55-Dnhttxbyoyrqvqqogi (FDG) COMPARISON: FDG PET/CT scan dated 04/07/2025 [...] any questions regarding this interpretation, please call [phone]. If you are unable to reach us at the number above, please feel free to contact [facility] at [phone]. Authorizing ProviderResult TypeResult StatusAdarsnoah Gracia MDNM-PAMAFinal Result * GLUCOSE, BLOOD (POC) (06/13/2025 1:31 PM EST)ComponentValueRef RangeTest MethodAnalysis TimePerformed AtPathologist SignatureGlucose, Point of Rslr2340 - 99 mg/dLSHawthorn CenterComment: Location:[facility], [facility] [address] [place], [place], [address] The Accu-Chek Inform II glucose meter has [...] ProviderPOC TESTINGFinal Result Performing OrganizationAddressCity/State/ZIP CodePhone Number POINT OF CARE [facility] [address] [place] [address] Dr. [place], [place] * US THYROID/PARATHYROID (06/12/2025 1:25 PM EST)Anatomical [...] not consider stability or previous biopsy results. Fish Net Stringer: PSCB ?? Transcribe Date/Time: Jun 13 2025 [...] ? Echogenicity: Isoechoic, 1 point ? Shape: ??Lfbbu-ghvr-xghr, 0 points ? Margin: Smooth, 0 points [...] ? Echogenicity: Isoechoic, 1 point ? Shape: ??Cfkfo-dexl-ypse, 0 points ? Margin: Smooth, 0 points [...] ? Echogenicity: Hyperechoic, 1 point ? Shape: ??Zfafl-zbse-nrkc, 0 points ? Margin: Smooth, 0 points ? Echogenic foci (add points for all that apply): ??None, 0 points ? Internal vascularity: ??absent ? Interval growth: ??Not clearly identified on the prior study TI-RADS Category: TR3 ACR Recommendation: TI-RADS 3 nodule. ??No FNA or further imaging is advised. Procedure Note Provider, [facility] - 06/13/2025 * * *Final Report* * * DATE OF EXAM: Jun 12 2025 1:25PM [place] [id number] - THYROID/PARATHYROID / PROCEDURE REASON: Multiple thyroid [...] 2 points Echogenicity: Isoechoic, 1 point Shape: Lhvcm-hdsa-nhch, 0 points Margin: Smooth, 0 points Echogenic [...] 2 points Echogenicity: Isoechoic, 1 point Shape: Gctcx-ccoc-owtz, 0 points Margin: Smooth, 0 points Echogenic [...] 2 points Echogenicity: Hyperechoic, 1 point Shape: Itvwv-lamy-zdux, 0 points Margin: Smooth, 0 points Echogenic [...] not consider stability or previous biopsy results. Fish Net Stringer: JEANETTE Transcribe Date/Time: Jun 13 2025 10:23A [...] Exhaled Nitric Oxide (ppb) 04/18/2025 11.0 NAME: uJd Sheppard RRT PATIENT NAME: Ruperto Saravia DATE: [...] PREDICTED (%)78%PULMONARY FUNCTION LABFEV1/FVC LLN (%)66%PULMONARY FUNCTION LMJCQF38% PRE (L/S)4.38L/SPULMONARY FUNCTION LAB FEF25% POST (L/S)4.36L/SPULMONARY FUNCTION DTILAS18% PRE (L/S00.54L/SPULMONARY FUNCTION QJQFDH74% POST (L/S)0.91L/SPULMONARY FUNCTION DWLISZ34% PREDICTED (L/S)0.54L/SPULMONARY FUNCTION BESYMM23% LLN (L/S)0.20L/SPULMONARY FUNCTION TWRGYR48% ULN (L/S)1.40L/SPULMONARY FUNCTION SXJHQA21-85% PRE (L/S)1.63L/S PULMONARY FUNCTION SPTIQZ62-11% POST (L/S)2.21L/SPULMONARY FUNCTION XNITJV78- 75% PREDICTED (L/S)2.08L/SPULMONARY FUNCTION MDCXYY55-38% LLN (L/S)0.98L/S PULMONARY FUNCTION LABPEF PRE (L/S)5.01L/SPULMONARY FUNCTION LABPEF POST (L/S) 5.40L/SPULMONARY FUNCTION LABPEF LLN (L/S)4.42L/SPULMONARY FUNCTION LABPEF ULN (L/S)8.26L/SPULMONARY FUNCTION LABFET PRE (S)8.50SPULMONARY FUNCTION LABFET POST (S)7.85SPULMONARY FUNCTION LABSpecimen (Source)Anatomical Location / LateralityCollection Method / VolumeCollection TimeReceived Time04/18/2025 8:22 AM EDT Narrative PULMONARY FUNCTION LAB - 04/19/2025 10:50 AM EDT [facility] ? [address] [place] [address] [place] [address] ? Test Date: ? 2025-04-18 Pat Name: ?RUPERTO RANI ?Department: ? Room: ? 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 : ? 1955 ?Requested By: ?? Order Number: ??[id number] ? Reading : ?Trina Feliz MD ? [...] 10:50:37 EDT by Trina Feliz MD ID: [id number] ?Name: RUPERTO SARAVIA ?Race: White Ht: 67.72 in ?Wt: 164.24 lbs ?Age: 69 Gender: Female ?: 1955 ?Dx: Acute Cough Smoking Hx: Non-smoker ?Doctor: BRYNN MANJARREZ Test Date: 04/18/2025 ?Site: [facility] ?Tech: Jud Sheppard ?PRE-BRONCH ? POST-BRONCH ?Erma [...] FIVC ?2.87 ? 2.95 ? 2 ? HRF18-52 ?1.63 ?? 0.98 ?? 2.08 ?? 3.64 [...] OrganizationAddressCity/State/ZIP CodePhone Number PULMON[facility] FUNCTION LAB [address] [place] [address] from Last 3 Months Insurance * Guarantor: Ruperto Saravia TypeRelation to PatientDate of BirthPhone Billing GsyymwgVeixohVlaa84/07/1956 [address] [place] [address] Advance Directives TypeDate RecordedPatient RepresentativeExplanationAdvance Directive(s)12/12/2009 8:53 PM Care Teams Team MemberRelationshipSpecialtyStart DateEnd Date Gerson Gonzalez Jr., DO [address] [facility] [place] [address] PCP - General08/24/01 Gerson Gonzalez Jr., DO [address] [facility] [place] [address] ReferringInternal Xrbelhzt36/18/24 Ghislaine Thakur RN [address] [place] [address] [place] [address] Specialty Care CoordinatorHematology/Oncology08/31/24 Nicholas Gracia MD [address] [place] [address] [place] [address] PhysicianHematology/Oncology08/31/24 Dianne Keller, SURESH.SQE [address] [place] [address] [place] [address] Hospice & Palliative Medicine08/31/24 Danielle Castellon LSW Social Worker09/29/24 Ramone Marcos RN Specialty Care CoordinatorHospice & Palliative Zochjeut26/13/25
--- OUTSIDE RECORDS SUMMARY | 2025-07-17 07:59 | XMS_ITS | Patient Health Record ---
Author Organization [facility] [place] Address [address] [place] [address] Care Team Providers Care Alemite Operator Name Role Phone Gerson Gonzalez DO Primary Care Provider Unavail able Allergies No Known Allergies Reason For Referral No Information Medications Medication SIG (Take, Route, Frequency, Duration) Notes Start Date End Date Status clonazePAM 0.5 MG Orally Not-TakingGabapentin 300 MGOrallyNot-TakingMeloxicam 15 MGTAKE 1 TABLET BY MOUTH EVERY DAY FOR 30 DAYS; Duration: 81SlwlmfNvzqllw86/01/1900Active magnesium oxide ActivePROzac 20 MG1 capsule Orally Once a day04/21/2024 ActiveVitamin B-12007/20/1899ActiveVitamin D007/20/1899ActiveZetia 10 MG1 tablet Orally Once a day04/21/2024ctive Problems Problem Type SNOMED Code ICD Code Onset Dates Problem Status W/U Status Risk Notes Problem Plantar fascial fibr omatosis (55716132) Plantar fascial fibromatosis (M72.2) 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) (918990372)Other congenital malformations of lower limb(s), 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)ActiveconfirmedProblemOsteoarthritis of knee (363857111) Primary osteoarthritis of right knee (M17.11)ActiveconfirmedProblem Osteoarthritis of knee (547760716)Primary osteoarthritis of left knee (M17.12) ActiveconfirmedProblemNuclear senile cataract (493544470)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)ActiveconfirmedProblemPain in left foot (699556191228894)Left foot pain (M79.672)ActiveconfirmedProblemBilateral arthritis of knees (2464894183254391)Primary osteoarthritis of knees, 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)Active confirmed Plan Of Treatment Pending Test Test Name Order Date XR Foot LT (3 views) * 04/21/2024 XR foot LT min 3V 04/22/2024 Insurance Providers Payer Name Payer Address Payer Phone Subscriber Number Group Number Insured Name Patient Relationship to Insured Coverage Start Date Coverage End Date [place]IC[place] [address] [place] [address] [id number] Nelida Stephenson - patient is the ofisenh26 2018[facility] ACC[facility] HEALTH [address] [address] [place] [id number], SusanSelf - patient is the insured Medications Administered Medication Instructions Date of Administration Dosage Notes Bupivacaine mLDepo-Medrol, 80 mg/mL mLKenalog, 80 mg/mL (40mg/mL x 2 units) mLSynvisc-One 48 mg mL Medical (General) History Medical History History ICD Code History of hearing loss SnoringPrevious history of headache preceded by vertigoSurgical History Surgery Date(Month/Year) Surgical / procedural histor y Brainstem resection of cavernous malformation in 10/26 2008 Surgical / procedural histor y Brainstem resection of cavernous malformation in 10/26 joie3090/2009/2011/2014facial kqrzrno4700Gyfmcmpfwnfwxtv History Reason Date(Month/Year) see above
--- OUTSIDE RECORDS SUMMARY | 2025-07-17 07:59 | XMS_ITS | Clinical Summary ---
Author Organization [facility] Address [address] [place] [address] Phone Care Team Providers Care Transportation Engineer Name Role Phone Gerson Gonzalez DO Primary Care Provider + [phone] Allergies No known active allergies Medications MedicationSigDispense [...] morning..05/20/2024ctive Active Problems ProblemNoted DateDiagnosed DatePreoperative cardiovascular /08/2024 BMI 31.0-31.9,adult05/27/2024Former visuoj3605/27/2024cquired hypothyroidism 05/27/20249675Vdlrmk34/08/2024 Family History Medical HistoryRelationNameCommentsValvular heart diseaseBrother 1pacemaker Brother 2RelationNameStatusCommentsBrother 1Brother 2Alive Social History Tobacco UseTypesPacks/DayYears UsedDateSmoking Tobacco: FormerCigarettes Smokeless Tobacco: Never Tobacco Cessation:Counseling Given: Not Answered Alcohol UseStandard Drinks/WeekCommentsNot Currently0 (1 standard drink = 0.6 oz pure alcohol)CommentsUnknownSex and Gender InformationValueDate Recorded Sex Assigned at BirthNot on fileLegal UvqEhbukf04/25/2022 7:19 PM ESTGender IdentityNot on fileSexual OrientationNot on file Last Filed Vital Signs Vital SignReadingTime TakenCommentsBlood Nypodlkd871/7411 9:43 AM EST Siint539605/27/2024 9:43 AM ESTTemperature--Respiratory Rate--Oxygen Saturation-- Inhaled Oxygen Concentration--Fqggum17.7 kg (211 lb)05/27/2024 9:42 AM ESTHeight 175.3 cm (5' 9 )05/27/2024 9:42 AM ESTBody Mass Index31.16107/27/2023 9:42 AM EST Plan of Treatment Health MaintenanceDue DateLast DoneCommentsCT Kyzpmtthqccb19/07/1956Colonoscopy 1955FIT1955Lipid Panel1955Medicare Annual Wellness Visit (AWV) 1955 4125Cljitlsosseyr89/07/1957TSH Level1956MMR Vaccines (1 of 1 - Standard series)1957Diabetes Pnivqhcqd87/07/1975Hepatitis C Screening 1974DTaP/Tdap/Td Vaccines (1 - Tdap)1978Pneumococcal Vaccine (1 of 1 - PCV)2006Zoster Vaccines (1 of 2)2006Bone Density Scan2021 Lqseawkht65/, 2COVID-19 Vaccine (4 - 2024- season) , 01/08/2021, 10/08/2020Influenza Vaccine (#1)2025 Colorectal Cancer Fuajsngfw44/30/2027FIT-DNA (Cologuard), 1RSV High Risk: (Elderly (60+) or [...] Team MemberRelationshipSpecialtyStart DateEnd Date Gerson Gonzalez DO [facility]12/21/09
--- OUTSIDE RECORDS SUMMARY | 2025-07-17 07:59 | XMS_ITS ---
Author Organization [facility] Address [facility] [place] [address] Care Team Providers Care Operational Review Sergeant Name Role Phone Lisa Carson DO, Charles Lewis Primary Care Provi heladio Lisa Carson DO, Charles Lewis Unavailable [phone] Ghislaine Thakur RN Unavailable [phone] Nicholas Gracia MD Unavailable [phone] Dianne Keller APRN.CALCINER OPERATOR HELPER Unavailable + Danielle Castellon Unavailable Unavailable Ramone Marcos RN Unavailable Unava ilable Active Problems ProblemNoted DateDiagnosed DateModerate recurrent major wdueplefcb74/30/2025 Malignant neoplasm of overlapping sites of right lung08/23/2024Obesity, Class I, BMI 30-34.9011/12/2021Vasomotor symptoms due to mfvojdqsf00/26/2022Multiple thyroid cznfgod7611/12/2021Vertical qvsooezca90/04/2014Unspecified disorder of muscle, ligament, and gnvdlr4711/04/2012Myalgia and myositis, unspecified 05/07/2011rticular disc disorder (reducing or non-reducing) of temporomandibular joint04/24/20103825Qgfevjl70/08/2010Cranial nerve paralysis 06/05/2009Paralytic strabismus, sixth or abducens nerve palsy06/01/2008 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 Post-op had deficits including left hemiparesis, left facial droop, dysarthria, diplopia. 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
--- OUTSIDE RECORDS SUMMARY | 2025-07-17 08:07 | XMS_ITS | CCD ---
Author Organization [facility] Care Team Providers Care Manager Of Application Development Name Role Phone Asya Clements Primary Care Provider Self, Referral Attending Provider Unavailable Starr Carson, [...] Unavailable WEST, DR ARMANDO Melo Consulting Unavailable CEDRCI .KERA Admitting Unavailable VALONE, DR SKY Primary Care Unavailable KERA DIETZ Attending Unavailable KERA DIETZ Consulting Unavailable JARAD BENAVIDES Consulting Unavailable JR Asya Clements Primary Care Provider [phone] CARLOS Wade Attending Provider JR Asya Clements Primary Care Provider CARLOS Wade Attending Provider [phone] Starr Carson DO, Charles Lewis Primary Care Provi heladio Asya Clements MD Primary Care Provider Asya Clements DO Primary Care Provider ЕЛЕНА GRIFFIN Attending Unavailable ASYA CLEMENTS Primary Care Unavailable Asya Clements JR Primary Care Provider Kera Reid MD Attending Provider Starr Carson DO, Charles Lewis Unavailable Yaya GONZALEZ, Darian Owens Attending Provider Blaze GAMING, Ghislaine Matt Unavailable Samia FLOYD, Isaac Unavailable [phone] Krishna PRINCE.SKYLAR, Vincent Saldaña Unavailable Jazmyne Bryson RN Unavailable Unavail able Asya Clements JR Primary Care Provider [phone] Kera Reid MD Attending Provider Sarabjit Crowley DO Attending Provider Asya Clements JR Primary Care Provider David Grant DO Emergency Provider Harmony Fairbanks MD, Horace Admit Provider Magdi FLOYD, Horace Attending Provider Michelle FLOYD, Agatha Patton Attending Provider Elizabeth Elizabeth MD Other Provider Mariah Patel MD Other Provider Miguel Taveras MD Other Provider Abimbola Nesbitt APRN Other Provider [phone] Jair Alvarez DO Other Provider Eyal Burt MD Other Provider Clovis Day MD Other Provider Taylor Smart MD Other Provider [phone] Dhruv FLOYD, Juan C Other Provider Bo KIM-CVicki Other Provider [phone] Danny Adames MD Other Provider Unavailable Courtney FLOYD, Rodolfo Melo Other Provider [phone] Ravinder BALL, Danielle Unavailable Unavailable Shasta Castellanos Unavailable Asya Clements JR Primary Care Provider Sarabjit Crowley DO Attending Provider David Grant DO Emergency Provider Harmony Fairbanks MD, Horace Admit Provider Michelle FLOYD, Agatha Patton Attending Provider [phone] Elizabeth Elizabeth MD Other Provider Jorge FLOYD, Mariah Other Provider Nitin FLOYD, Miguel Other Provider Abimbola Nesbitt APRN Other Provider Jair Alvarez DO Other Provider Carmel FLOYD, Eyal Reis Other Provider [phone] Clovis Day MD Other Provider Taylor Smart MD Other Provider [phone] Dhruv FLOYD, Juan C Other Provider Bo KIM-Vicki Hayes Other Provider Danny Adames MD Other Provider Unavailable Courtney FLOYD, Rodolfo Melo Other Provider Asya Clements JR Attending Provider SHASTA WADE Attending Unavailable SHASTA WADE Attending Unavailable SHASTA AWDE Referring Unavailable SHASTA WADE Attending Unavailable DOUG BEYER Attending Unavailable MICHAEL CRUZ Attending Unavailable SHASTA WADE Attending Unavailable SHASTA WADE Attending Unavailable Asya Clements JR Primary Care Provider Samia FLOYD, Isaac Attending Provider Ghislaine Cannon Attending Provider Unavailable Qamar PRINCE-POST OFFICE MARKUP CLERK-CAyesha Attending Provider Strar Asya Roman Primary Care Unavailable Isaac Gracia Admitting Unavailable VennepuredIsaac arriola Attending Unavailable Valone, Asya L Attending Unavailable Valone, Asya L Admitting Unavailable Valone, Asya L Primary [...] MCari Attending Unavailable Yaquelin Gracia MDh Unavailable ASYA CLEMENTS JR Primary Care Unavail [...] YASMEEN NARAYAN Referring Unavailable VINCENT ESTRADA Attending Unavaililsa e JEANNAONE , ASYA LOJA Primary Care [...] Unavail able VENNEPUREDDY, ISAAC Referring Unavailable VAL[facility] Shaka SMART Referring Unavailable Shaka SMART Attending Unavailable VALONE [facility] Primary Care Unavail able Shaka SMART Referring Unavailable Shaka SMART Attending [facility] Unavail able YAYA DARIAN L Referring Unavailable VALONE [facility] Care Unavail able HANH BARCLAYI Roman Attending Unavailable VALONE [facility] Care Unavail able YAYA DARIAN L Referring Unavailable YASMEEN NARAYAN Attending Unavailable VALONE [facility] Care Unavail able YAYA DARIAN L Referring Unavailable SARABJIT SHARMA Attending [facility]available [facility] Unavail able YAYA DARIAN L Referring Unavailable SARABJIT CROWLEY Attending Unavailable [facility] Unavail able DELASOS, SARABJIT Referring Unavailable VENNSHIRAUREDFLAKO, ISAAC Attending Unavailable VALONE [facility] Care Unavail able Shaka SMART Referring Unavailable Shaka SMART Attending Unavailable [facility] Unavail able Shaka SMART Attending Unavailable [place] Care Unavail able ANN-MARIE GOMEZ Referring Unavailable [place] Care Unavail able JUAN C SCHREIBER Attending Unavailable [place] Care Unavail able PAULINA JACOBSON Referring Unavail able [place] Care Unavail able PAULINA JACOBSON Attending Unavail able [facility] Unavail able HANH BARCLAYI Roman Attending Unavailable [facility] Unavail able YAYA DARIAN L Referring Unavailable [facility] Care Unavail able VALONE [facility] Care Unavail able DELKEYONNAOS, SARABJIT Referring Unavailable VENNEPUREDFLAKO, ISAAC Attending Unavailable [facility] Unavail able DELASOS, SARABJIT Referring Unavailable [facility] Care Unavail able VENNEPUREDFLAKO, ISAAC Referring Unavailable [facility] Unavail able [facility] Unavail able DELASOS, SARABJIT Referring [...] VENNEPUREDDY, ISAAC Referring Unavailable VALONE , ASYA JIMYM Primary Care Unavail able SELF Referring Unavailable VALONE , ASYA JIMMY Primary Care Unavail able ELIZABETH BALBUENA Referring Unavailable ELIZABETH BALBUENA Attending Unavailable VALONE , ASYA JIMMY Primary Care Unavail able VALONE JR, ASYA JIMMY Primary Care Unavail able KEO, SARABJIT Referring Unavailable ULISSES BAUM Attending Unavailable Allergies Allergy ClassificationReported Allergen(s)Allergy TypeDate of OnsetReaction(s) Facility (20 sources)Seasonal allergy; Translations: [SEASONAL ALLERGIES]Propensity to adverse sczupkdou78-05-4807J[facility]jqtuvQwrckek[facility] (8 sources)OtherPropensity to adverse jqwpsazap66-90-3797ElfqgfsBDDG Healthcare Work Phone: Medications Current Medications MedicationDrug Class(es)DatesSig (Normalized)Sig (Original)acetaminophen 325 mg oral tablet (20 sources)Start: 61-41-0151mqcs 2 tablets by mouth every six hours as needed for painAcetaminophen (Tylenol) 325 mg Tablet Active 650 MG PO Q6H as needed for fever/pain September 12, 2024 1:00am Complies with drug therapyStart: 06-07-2024 End: 58-82-4270onxxngfnztuzo (TYLENOL) 325 mg tablet Take 325 mg [...] 0.05 mg oral capsule (20 sources)Vitamin DStart: 48-48-0312BVMSKXLJSXXLUTV (VITAMIN D3) 2,000 UNIT CAP Take one(1) tablet daily. 0 06/01/2008 Activetake 1 tablet by mouth in the morningcholecalciferol (Vitamin D-3) 25 MCG (1000 UT) tablet Take 1,000 Units by mouth in the morning. ActiveComment on above:Take one(1) tablet daily.clonazePAM 0.5 mg oral tablet (3 sources)BenzodiazepineStart: 53-76-9508ShnnxbrEGM 0.5 mg Tab Refills(s) 0 Start Date: 07/23/22 Status: Ordered End: 73-19-3286bzbdobgZEG (KLONOPIN) 0.5 mg tablet three times daily as needed. 0 11/12/2021 Discontinued (Course of therapy completed)Comment on above:three times daily as needed. docusate sodium 50 mg / sennosides, residential 8.6 mg oral tablet (20 sources)Start: 08-26-2024 End: 67-34-2377bsjb 1 tablet by mouth once dailysenna-docusate (SENNA-S) [...] with radiology test) (2 sources)Start: 07-29-2024 End: 18-12-4809vqzobzk contrast (will be provided with radiology test) [...] oral tablet (20 sources)Dietary Cholesterol Absorption InhibitorStart: 69-59-9679sgpx 5 mg by mouth once daily in the morningEzetimibe (Zetia) 10 mg tablet Active 5 MG PO Every morning May 31, 2024 1:00am Complies with drug therapyStart: 64-28-1101wodo 1 tablet by mouth once dailyezetimibe (ZETIA) 10 mg tablet Take 10 mg by mouth once daily. 10/03/2021 ActiveStart: 39-10-3112csfu 1 mg by mouth once dailyezetimibe mg, Oral, Daily Start Date: 07/24/21 Status: OrderedComment on above:Take 10 mg by mouth once daily.FLUoxetine 40 mg oral capsule (20 sources)Serotonin Reuptake InhibitorStart: 50-83-2956Niacfpxdqx 40 mg capsule Active 40 MG PO February 06, 2025 12:00am Complies with drug therapyStart: 19-05-3601njhv 1 capsule by mouth once daily in the morningFluoxetine 20 mg capsule Active 20 MG PO Every morning May 31, 2024 1:00am Complies with drug therapyStart: 57-03-0809BHQuraaxgl 10 mg Cap Refills(s) 0 Start Date: 01/15/22 Status: Orderedtake 2 capsules by mouth once dailyFLUoxetine (PROZAC) 20 mg capsule Take 40 mg by mouth once daily. ActiveComment on above:Take 10 mg by mouth once daily.gabapentin 100 mg oral capsule (20 sources)Anti-epileptic AgentStart: 87-93-4488muua 1 capsule by mouth twice dailyGabapentin 100 mg capsule Active 100 MG PO Twice daily 180 February 06, 2025 12:00am Complies with drug therapyStart: 46-92-0611lmjo 300 mg by mouth twice dailygabapentin 300 mg Tb24 Take 300 mg by mouth two times a day. 10/10/2024 ActiveStart: 73-33-5257thhy 1 capsule by mouth at bedtimegabapentin (NEURONTIN) 100 mg capsule TAKE 1 CAPSULE (100 MG) BY MOUTH IN THE MORNING AND BEFORE BED TIME 10/10/2024 ActiveStart: 08-31-2024 End: 76-69-4394glom 1 capsule by mouth three times dailygabapentin (NEURONTIN) 300 mg capsule Take 1 capsule by mouth three times a day for 30 days. 60 capsule 08/31/2024 09/04/2024 DiscontinuedStart: 52-81-1569avww 1 capsule by mouth twice dailygabapentin 300 mg Cap 300 mg = 1 cap(s), Oral, BID Start Date: 07/24/21 Status: OrderedStart: 06-26-2014 End: 30-56-1812nvytgqprne (NEURONTIN) 300 mg capsule Take 1 pill three times a day 270 capsule 3 06/26/2014 04/10/2023 Discontinued (Course of therapy completed) End: 47-03-3217nhfx 1 capsule by mouth once daily at bedtimegabapentin (NEURONTIN) 300 mg capsule Take 300 mg by mouth daily at bedtime. 08/31/2024 Discontinued (Adjust Sig - Block E-Cancel)Comment on above:Take 1 pill three times a dayhydroCHLOROthiazide 25 mg oral tablet (20 sources)Thiazide DiureticStart: 06-23-2024 End: 88-96-2127Kaspusjsycgitvmivmy 25 mg tablet Active 25 MG PO .PRN September 07, 2024 1:00am Complies with drugtherapylevothyroxine sodium 0.075 mg oral tablet (20 sources)l-ThyroxineStart: 32-08-8801kocx 1 tablet by mouth once daily levothyroxine (SYNTHROID) 75 mcg tablet Indications: Acquired hypothyroidism Take 1 tablet by mouthonce daily. 90 tablet 1 03/14/2025 ActiveStart: 06-24-2023 levothyroxine 25 mcg (0.025 mg) Tab Refills(s) 0 Start Date: 06/24/23 Status: OrderedStart: 03-27-2023 End: 65-91-8459xavi 1 tablet by mouth once dailylevothyroxine (SYNTHROID) 25 mcg tablet Take 25 mcg by mouth once daily. 03/27/2023 03/14/2025 Discontinued loratadine 10 mg oral tablet (1 source)Start: 79-14-3235Wwpqkxdtsx 10 mg tablet Active 10 MG PO February 06, 2025 12:00am Complies with drug therapyLORazepam 1 mg oral tablet (1 source)BenzodiazepineStart: 09-30-2024 End: 15-85-6490wvbz 1 tablet by mouth every twelve hours [...] tablet (20 sources)Nonsteroidal Anti-inflammatory DrugStart: 08-31-2024 End: 65-83-0737mvly 2 tablets by mouth once dailymeloxicam (MOBIC) 7.5 mg tablet Take 2 tablets by mouth once daily. 08/31/2024 09/30/2024 ExpiredStart: 05-31-2024 End: 64-37-3246olrc 1 tablet by mouth twice daily as needed for painMeloxicam 15 mg tablet Active 15 MG PO Twice daily as needed for pain September 12, 2024 11:52amComplies with drug therapyStart: 32-30-8895qyvj 1 tablet by mouth once daily in the morningMeloxicam 15 mg tablet Active 15 MG PO Every morning May 31, 2024 12:00amStart: 43-61-9435yhex 1 tablet by mouth in the morningmeloxicam (Mobic) 15 mg tablet Take 1 tablet (15 mg) by mouth early in the morning.. 05/20/2024 Active End: 32-00-3778ctfb 1 tablet by mouth once dailymeloxicam (MOBIC) 7.5 mg tablet Take 7.5 mg by mouth once daily. 08/31/2024 Discontinued (Adjust Sig - Block E-Cancel)modafinil 200 mg oral tablet (8 sources)Sympathomimetic-like AgentStart: 09-07-7760fwmdogugf (Provigil) 200 MG tablet 01/01/2023 ActiveMultiple Vitamins-Minerals (PRESERVISION AREDS 2 PO) (8 sources)Multiple Vitamins-Minerals (PRESERVISION AREDS 2 PO) Take by mouth Activeondansetron 8 mg oral tablet (20 sources)Serotonin-3 Receptor AntagonistStart: 08-30-2024 End: 05-99-5969eyts 1 tablet by mouth every eight hours as needed for nausea and nauseaondansetron (ZOFRAN) 8 mg tablet Indications: Chemotherapy-induced nausea Take 1 tablet by mouth every 8 hours as needed for nausea/vomiting. 90 tablet 3 02/28/2025 03/30/2025 Activeoxybutynin chloride 5 mg oral tablet (9 sources)Cholinergic Muscarinic AntagonistStart: 17-38-0005Tgsbhofucj Chloride 5 mg tablet Active 5 MG PO 2-3 TIMES PER DAY as needed for bladder spasms May 1:00am Complies with drug therapyoxyCODONE hydrochloride 5 mg oral tablet (20 sources)Opioid AgonistStart: 2024 End: 87-87-9241vowg 1 tablet by mouth every six hours as neededoxyCODONE IR (ROXICODONE) 5 mg immediate release tablet Indications: Metastatic cancer to bone (HCC) , Neoplasm related pain Take 1-2 tablets by mouth every 6 hours as needed for pain for up to 15 days. 120 tablet 02/28/2025 ActiveStart: 08-31-2024 End: 71-79-0850peun 1 tablet by mouth every four hours as neededoxyCODONE IR (ROXICODONE) 10 mg tab Indications: Metastatic cancer to bone (HCC) , Lung mass Take 1-2 tablets by mouth every 4 hours as needed for pain for up to 30 days. for pain. 360 tablet 08/31/2024 09/04/2024 Discontinued (Discontinued by Patient)Start: 08-26-2024 End: 44-34-2364vbvr 1 tablet by mouth every six hours as needed for pain oxyCODONE IR (ROXICODONE) 10 mg tab Indications: Metastatic cancer to bone (HCC) , Lung mass Take 1tablet by mouth every 6 hours as needed for pain for up to 30 days. for pain. 120 tablet Discontinued (Adjust Sig - Block E-Cancel)Start: 08-19-2024 End: 17-53-5545qaxp 1 tablet by mouth every six hours as neededoxyCODONE IR (ROXICODONE) 5 mg immediate release tablet Indications: Metastatic cancer to bone (HCC) , Lung mass , Lytic bone lesions on xray Take 1-2 tablets by mouth every 6 hours as needed for pain for up to 7 days. for pain. 40 tablet 08/19/2024 08/26/2024 Discontinuedprochlorperazine 10 mg oral tablet (20 sources)PhenothiazineStart: 41-62-5608cvhz 1 tablet by mouth every six hours as neededprochlorperazine (COMPAZINE) 10 mg tablet Take 1 tablet by mouth every 6 hours as needed. 100 tablet 2 08/30/2024 Activepropranolol hydrochloride 60 mg oral tablet (20 sources)beta-Adrenergic BlockerStart: 07-24-2021 End: 53-24-5756naqtjphshza (INDERAL) 60 mg tablet Propranolol 60 mg tablet Active 60 MG PO Daily at bedtime as needed for tremor(s), anxiety May 31, 2024 1:00am Complies with drug therapy 07/24/2021 ActiveStart: 07-24-2021 End: 29-29-5159mdzovgwhnkp (INDERAL) 20 mg tablet as needed. 11/06/2021 11/23/2024 DiscontinuedComment on above:as needed.silver sulfADIAZINE 10 mg/ml topical cream (5 sources)Sulfonamide AntibacterialStart: 09-22-2024 End: 86-40-9699jihfqa sulfADIAZINE (SILVADENE) 1 % cream Apply to affected area once daily for 14 days. 25 g 09/22/2024 10/06/2024 ActiveSotorasib (1 source)Start: 41-38-9776Nkyslczsm (Lumakras) 240 mg tablet Active 240 MG PO February 06, 2025 12:00am Complies with drug therapysotorasib (LUMAKRAS) 320 mg tablet (13 sources)Start: 03-15-2025 End: 04-81-4657jinj 3 tablets by mouth once dailysotorasib (LUMAKRAS) 320 mg tablet Take 3 tablets by mouth once daily. 90 tablet 1 03/15/2025 10:20AM EDT 03/15/2025 04/14/2025 ActiveStart: 02-03-2025 End: 31-06-2445rhbz 3 tablets by mouth once daily in the eveningsotorasib (LUMAKRAS) 320 mg tablet Take 3 tablets by mouth once daily. 90 tablet 02/09/2025 4:17 PMEDT 02/03/2025 03/15/2025 DiscontinuedStart: 02-03-2025 End: 87-87-0878nguw 3 tablets by mouth once daily in the eveningsotorasib (LUMAKRAS) 320 mg tablet Take 3 tablets by mouth once daily. 90 tablet 02/09/2025 4:17 PMEDT 02/03/2025 03/11/2025 Activetamsulosin hydrochloride 0.4 mg oral capsule (6 sources)alpha-Adrenergic BlockerStart: 70-67-7218dxmj 1 capsule by mouth once dailytamsulosin 0.4 mg Cap 0.4 mg = 1 cap(s), Oral, Daily, # 30 cap(s), Refills(s) 0, Pharmacy: [facility]/pharmacy #[id number], 175, cm, 03/17/24 12:54:00 EDT, Height/Length Dosing, 95, kg, 03/17/24 12:54:00 EDT, Weight Dosing Start Date: 03/17/24 Status: Orderedtorsemide 20 mg oral tablet (20 sources)Loop DiureticStart: 34-53-6270vmfkmswkt (DEMADEX) 20 mg tablet once daily as needed. 10/26/2024 ActivetraMADol hydrochloride 50 mg oral tablet (20 sources)Opioid AgonistStart: 09-07-2024 End: 65-32-0316Ybmbnvvn 50 mg tablet Active 50 MG PO .PRN as needed for pain September 07, 2024 1:00am Complies with drug therapyStart: 09-04-2024 End: 60-72-4172qtue 1.5 tablets by mouth every four hours for paintraMADol (ULTRAM) 50 mg tablet Indications: Lytic bone lesions on xray Take 1.5 tablets by mouth every 4 hours for 7 days. for pain. 63 tablet 09/04/2024 2024 DiscontinuedStart: 08-11-2024 End: 89-25-4174fftg 1 tablet by mouth every six hours as needed for paintraMADol (ULTRAM) 50 mg tablet Indications: Lytic bone lesions on xray Take 1 tablet by mouth every6 hours as needed for pain for up to 7 days. for pain. 28 tablet 08/11/2024 08/18/2024 ActiveStart: 07-29-2024 End: 15-79-4513iqdi 1 tablet by mouth every six hours as needed for paintraMADol (ULTRAM) 50 mg tablet Indications: Lytic bone lesions on xray Take 1 tablet by mouth every6 hours as needed for pain for up to 7 days. for pain. 28 tablet 07/29/2024 08/05/2024 ActiveVitamin B Complex (20 sources)Start: 14-84-6755yrdu 1 tablet by mouth once dailyvitamin b complex tab Take 1 tablet by mouth once daily. 08/03/2018 ActiveStart: 23-29-5839wkyg 1 tablet by mouth once dailyvitamin b complex tab Take 1 tablet by mouth once daily. 0 08/03/2018 ActiveComment on above:Take 1 tablet by mouth once daily. Completed/Discontinued Medications MedicationDrug Class(es)DatesSig (Normalized)Sig (Original)acetylcysteine in water/PF (ACETYLCYSTEINE, PF, IN WATER) 10 % drop (1 source)Start: 08-16-2019 End: 70-33-1822zgcl 1 drop(s) into the eye(s) three times dailyacetylcysteine in water/PF (ACETYLCYSTEINE, PF, IN WATER) 10 % drop Use 1 Drop in the right eye three times daily. 10 mL 11 08/16/2019 11/12/2021 DiscontinuedComment on above: Use 1 Drop in the right eye three times daily.[id number] 200 actuat albuterol 0.09 mg/actuat metered dose inhaler (20 sources)beta2-Adrenergic AgonistStart: 2024 End: 93-51-9393oezh 2 puff(s) by inhalation every six hours [...] injection (8 sources)Acetylcholine Release InhibitorStart: 01-25-2025 End: 89-58-3038lwebre 1 dose by intramuscular injection every 30 days16 Units, INTRAMUSCULAR, ONCE (UP TO 30 DAYS AMB), 1 dose, On Thu01/25/25 at 0000, This record documents the total dose provided to patient. See progress note for specific locations and amounts administered. REFRIGERATE - Pharmaceutical Waste: Lab Pack -Start: 01-25-2025 End: 40-77-4173fbxcdfsvdzlp toxin type A 16 Units injection (BOTOX)Start: 01-25-2025 End: 32-46-1157hdblwivqfwqw toxin type A 16 Units injection (BOTOX)Start: 04-22-2024 End: 33-67-8056sipyig 1 dose by intramuscular injection every 30 days81 Units, INTRAMUSCULAR, ONCE (UP TO 30 DAYS AMB), 1 dose, On Thu04/22/24 at 1130, This record documents the total dose provided to patient. See progress note for specific locations and amounts administered. REFRIGERATE - Pharmaceutical Waste: Lab Pack -Start: 04-22-2024 End: 70-21-9449hftwdxfxopvj toxin type A 81 Units injection (BOTOX)Start: 04-10-2023 End: 24-42-6198gmymrcojzosx toxin type A 90 Units injection (BOTOX)Start: 06-01-2022 End: 89-51-3964hxqidjtrynbn toxin type A 100 Units injection (BOTOX)Start: 01-19-2022 End: 01-71-3710atridtmqenyo toxin type A 94 Units injection (BOTOX)24 hr buPROPion hydrochloride 300 mg extended release oral tablet (1 source)AminoketoneStart: 08-30-2022 End: 39-38-5811muzm 1 tablet by mouth once daily in the morningbuPROPion XL (WELLBUTRIN XL) 300 mg 24 hr tablet Take 300 mg by mouth every morning. 0 08/30/2022 04/10/2023 Discontinued (Course of therapy completed)Comment on above:Take 300 mg by mouth every morning.CARBOplatin 500 mg in NaCl 0.9% 325 mL (PARAPLATIN) (3 sources)Start: 12-14-2024 End: 63-10-0477148 mg (rounded from 517.2 mg, Target AUC = 4), INTRAVENOUS, Administer over 30 Minutes, ONCE, 1 dose, On Thu12/14/24 at 1530, EXP: 12/15/2024 1110 RT Hazardous Chemotherapy Drug: Use appropriate PPE. Antineoplastic Irritant.Start: 11-23-2024 End: 42-59-8913805 mg (rounded from 517.2 mg, Target AUC = 4), INTRAVENOUS, Administer over 30 Minutes, ONCE, 1 dose, On Thu11/23/24 at 1500, EXP: 1100 11/24/24 Hazardous Chemotherapy Drug: Use appropriate PPE. Antineoplastic Irritant.Start: 11-02-2024 End: 38-69-8377813 mg (rounded from 517.2 mg, Target AUC = 4), INTRAVENOUS, Administer over 30 Minutes, ONCE, 1 dose, On Thu11/02/24 at 1330, EXP: 11/03/2024 0945 RT Hazardous Chemotherapy Drug: Use appropriate PPE. Antineoplastic Irritant.CARBOplatin 694 mg in NaCl 0.9% 344.4 mL (PARAPLATIN) (2 sources)Start: 10-12-2024 End: 78-63-6943840 mg (Target AUC = 5), INTRAVENOUS, Administer [...] 1100, Administer over 5 minutes.Start: 11-23-2024 End: 40-28-305260 mg, INTRAVENOUS, ONCE, 1 dose, On Thu11/23/24 at 1100, Administer over 5 minutes.Start: 11-02-2024 End: 89-61-313012 mg, INTRAVENOUS, ONCE, 1 dose, On Thu11/02/24 at 0930, Administer over 5 minutes.Start: 10-12-2024 End: 64-70-643219 mg, INTRAVENOUS, ONCE, 1 dose, On Thu10/12/24 at 1000, Administer over 5 minutes.Start: 09-14-2024 End: 04-88-550430 mg, INTRAVENOUS, ONCE, 1 dose, On Thu09/14/24 at 1000, Administer over 5 minutes.dexamethasone 0.001 mg/mg / neomycin 0.0035 mg/mg / polymyxin b 10 unt/mg ophthalmic ointment (1 source)Aminoglycoside Antibacterial, Polymyxin-class Antibacterial, CorticosteroidStart: 07-01-2019 End: 89-45-7737qqolgdob/polymyxin b/dexametha(MAXITROL 3.5 MG/G-10,000 UNIT/G- 0.1 % EYE [...] weekdiphenhydrAMINE (5 sources)Histamine-1 Receptor AntagonistStart: 12-14-2024 End: 14-21-106024 mg, INTRAVENOUS, ONCE, 1 dose, On Thu12/14/24 at 1100Start: 11-23-2024 End: 27-12-220718 mg, INTRAVENOUS, ONCE, 1 dose, On Thu11/23/24 at 1100Start: 11-02-2024 End: 45-90-524257 mg, INTRAVENOUS, ONCE, 1 dose, On Thu11/02/24 at 0930Start: 10-12-2024 End: 33-03-361431 mg, INTRAVENOUS, ONCE, 1 dose, On Thu10/12/24 at 1000Start: 09-14-2024 End: 66-30-756055 mg, INTRAVENOUS, ONCE, 1 dose, On Thu09/14/24 at 1000 doxycycline hyclate 100 mg oral capsule (10 sources)Tetracycline-class DrugStart: 09-19-2024 End: 96-66-7141qndaibdyptx hyclate (VIBRAMYCIN) 100 mg capsule 09/19/2024 11/02/2024 Discontinued (Course of therapy completed)erythromycin 0.005 mg/mg ophthalmic ointment (1 source)Macrolide, Macrolide AntimicrobialStart: 06-24-2019 End: 90-92-3102guceyidmloan ophthalmic ointment Apply 1/2 inch ribbon per [...] Nucleoside Analog DNA Polymerase InhibitorStart: 12-14-2020 End: 04-69-4348iitpguwjrva (FAMVIR) 500 mg tablet2 ml famotidine 10 mg/ml injection (5 sources)Histamine-2 Receptor AntagonistStart: 12-14-2024 End: 59-24-534171 mg, INTRAVENOUS, ONCE, 1 dose, On Thu12/14/24 at 1100, REFRIGERATEStart: 11-23-2024 End: 97-63-581582 mg, INTRAVENOUS, ONCE, 1 dose, On Thu11/23/24 at 1100, REFRIGERATEStart: 11-02-2024 End: 41-54-063228 mg, INTRAVENOUS, ONCE, 1 dose, On Thu11/02/24 at 0930, REFRIGERATEStart: 10-12-2024 End: 80-19-911930 mg, INTRAVENOUS, ONCE, 1 dose, On Thu10/12/24 at 1000, REFRIGERATEStart: 09-14-2024 End: 10-44-736294 mg, INTRAVENOUS, ONCE, 1 dose, On Thu09/14/24 at 1000, REFRIGERATEfosaprepitant 150 mg injection (3 sources)Start: 12-14-2024 End: 76-15-2509487 mg, INTRAVENOUS, Administer over 30 Minutes, ONCE, 1 dose, On Thu12/14/24 at 1100, RefrigerateStart: 10-12-2024 End: 19-60-8114580 mg, INTRAVENOUS, Administer over 30 Minutes, ONCE, 1 dose, On Thu10/12/24 at 1000, Approx TotalVolume: 115 mL RefrigerateStart: 09-14-2024 End: 39-18-4296772 mg, INTRAVENOUS, Administer over 30 Minutes, ONCE, 1 dose, On Thu09/14/24 at 1000, Approx TotalVolume: 115 mL Refrigeratefosaprepitant 150 mg in NaCl 0.9% 100 mL (EMEND) (2 sources)Start: 11-23-2024 End: 67-03-6002856 mg, INTRAVENOUS, Administer over 30 Minutes, ONCE, 1 dose, On Thu11/23/24 at 1100, Approximate Total Volume = 115 mL RefrigerateStart: 11-02-2024 End: 64-30-3354245 mg, INTRAVENOUS, Administer over 30 Minutes, ONCE, 1 dose, On Thu11/02/24 at 1000, Approximate Total Volume = 115 mL Refrigerateiv contrast (will be provided with radiology test) (13 sources)Start: 01-26-2025 End: 38-07-4815htaseo 1 dose intravenously onceiv contrast (will be [...] 1 each 01/26/2025 01/27/2025 Start: 01-26-2025 End: 46-88-8495sfjnul 1 dose intravenously onceiv contrast (will be [...] each 01/26/2025 01/27/2025 Active Start: 12-14-2024 End: 09-16-2493pw contrast (will be provided with radiology test) [...] link.1 each 12/14/2024 12/15/2024 ActiveStart: 08-23-2024 End: 48-91-3143ygsbtp 1 dose intravenously onceiv contrast (will be [...] 1 Each 08/23/2024 08/24/2024 ExpiredStart: 08-23-2024 End: 27-38-6158hbbzep 1 dose intravenously onceiv contrast (will be [...] 1 Each 08/23/2024 08/24/2024 ActiveStart: 07-29-2024 End: 00-42-6279cm contrast (will be provided with radiology test) [...] 40 mg/ml injection (1 source)Start: 12-14-2024 End: 03-98-9228lurk 2 g intravenously every hour2 g, INTRAVENOUS, [...] oral tablet (15 sources)Opioid AgonistStart: 08-26-2024 End: 38-13-0811tcst 1 tablet by mouth twice dailymorphine SR (MS CONTIN) 15 mg 12 hr tablet Indications: Metastatic cancer to bone (HCC) , Neoplasm related pain Take 1 tablet by mouth two times a day for 30 days. 60 tablet 2024 11/02/2024 Discontinued (Discontinued by Patient)naloxone hydrochloride 40 mg/ml nasal spray (20 sources)Opioid AntagonistStart: 08-26-2024 End: 22-12-8668lzlpoiae 4 mg/actuation nasal spray (NARCAN) Use 1 spray in one nostril as needed for overdose. Mayrepeat every 2 to 3 min in alternating nostrils until medical assistance is available 1 Each 1 08/26/2024 01/26/2025 DiscontinuedPACLitaxel 300 mg in NaCl 0.9% 590 mL (TAXOL) (3 sources)Start: 12-14-2024 End: 03-43-4321888 mg (rounded from 304.5 mg = 150 mg/m2 2.03 m2 Treatment Plan BSA from Recorded weight), INTRAVENOUS, at 196.67 mL/hr, Administer over 3 Hours, ONCE, 1 dose, On Thu12/14/24 at 1230, EXP: 109911/24/24 Hazardous Chemotherapy Drug: Use appropriate PPE. Antineoplastic Irritant with Vesicant Potential. Administer with non-DEHP 0.2 micron filter and tubing.Start: 11-23-2024 End: 71-72-6650358 mg (rounded from 304.5 mg = 150 mg/m2 2.03 m2 Treatment Plan BSA from Recorded weight), INTRAVENOUS, at 196.67 mL/hr, Administer over 3 Hours, ONCE, 1 dose, On Thu11/23/24 at 1200, EXP: 109911/24/24 Hazardous Chemotherapy Drug: Use appropriate PPE. Antineoplastic Irritant with Vesicant Potential.Administer with non-DEHP 0.2 micron filter and tubing.Start: 11-02-2024 End: 40-25-4013218 mg (rounded from 304.5 mg = 150 [...] 600 mL (TAXOL) (2 sources)Start: 10-12-2024 End: 91-11-7311966 mg (rounded from 369.25 mg = 175 mg/m2 2.11 m2 Treatment Plan BSA from Recorded weight), INTRAVENOUS, at 200 mL/hr, Administer over 3 Hours, ONCE, 1 dose, On Thu10/12/24 at 1100, EXP: 10/16/2024 1010 RT Hazardous Chemotherapy Drug: Use appropriate PPE. Antineoplastic Irritant with Vesicant Potential. Administer with non-DEHP 0.2 micron filter and tubing.Start: 09-14-2024 End: 09-67-2802904 mg (rounded from 369.25 mg = 175 [...] Administer with 0.2 micron filter.Start: 12-14-2024 End: 51-21-4820208 mg, INTRAVENOUS, Administer over 30 Minutes, ONCE, 1 dose, On Thu12/14/24 at 1130, Approx TotalVolume: 66 mL EXP: 12/18/2024 1100 Refrigerated Administer with 0.2 micron filter.Start: 11-23-2024 End: 86-89-2240684 mg, INTRAVENOUS, Administer over 30 Minutes, ONCE, 1 dose, On Thu11/23/24 at 1130, Approx Total Volume: 66 mL EXP 1700 11/23/24 Administer with 0.2 micron filter.Start: 11-02-2024 End: 24-72-3702361 mg, INTRAVENOUS, Administer over 30 Minutes, ONCE, 1 dose, On Thu11/02/24 at 1000, Approx TotalVolume: 66 mL EXP: 11/06/2024 0935 Refrigerated Administer with 0.2 micron filter.Start: 10-12-2024 End: 73-29-7601608 mg, INTRAVENOUS, Administer over 30 Minutes, ONCE, 1 dose, On Thu10/12/24 at 1030, Approx TotalVolume: 66 mL EXP: 10/16/2024 1010 Refrigerated Administer with 0.2 micron filter.Start: 09-14-2024 End: 12-65-6778687 mg, INTRAVENOUS, Administer over 30 Minutes, ONCE, 1 dose, On Thu09/14/24 at 1030, Approx TotalVolume: 66 mL EXP: 09/18/2024 1000 RT Administer with 0.2 micron filter.pravastatin sodium 10 mg oral tablet (16 sources)HMG-CoA Reductase InhibitorStart: 07-24-2021 End: 93-63-6353qwnlaecjjds (PRAVACHOL) 10 mg tablet Take 10 mg by mouth as needed. 07/24/2021 08/26/2024 DiscontinuedComment on above:Take 10 mg by mouth once daily.primidone 50 mg oral tablet (20 sources)Anti-epileptic AgentStart: 11-22-2024 End: 66-03-1138ztyj 1 tablet by mouth once daily at bedtimeprimidone (MYSOLINE) 50 mg tablet Take 25-50 mg by mouth daily at bedtime. 11/22/2024 02/10/2025 Dis continuedsertraline 25 mg oral tablet (1 source)Serotonin Reuptake InhibitorStart: 12-27-2020 End: 69-63-5914pzsihylnzq (ZOLOFT) 25 mg tabletsotorasib (LUMAKRAS) 240 mg tablet (12 sources)Start: 01-26-2025 End: 64-95-4743fdrb 4 tablets by mouth once dailysotorasib (LUMAKRAS) 240 mg tablet Take 4 tablets by mouth once daily. 120 tablet 01/26/2025 02/03/2025 DiscontinuedStart: 01-26-2025 End: 83-20-9701znaj 4 tablets by mouth once dailysotorasib (LUMAKRAS) 240 mg tablet Take 4 tablets by mouth once daily. 120 tablet 01/26/2025 02/25/2025 Activesulfamethoxazole 800 mg / trimethoprim 160 mg oral tablet (9 sources)Dihydrofolate Reductase Inhibitor Antibacterial, Sulfonamide AntimicrobialStart: 06-07-2024 End: 16-38-2681zoqz 1 tablet by mouth every twelve hoursSulfamethoxazole- Trimethoprim (Bactrim Ds) 800-160 mg tablet Discontinued 1 TAB PO Every 12 hours 2Noveer 2023 1:00am September 07, 2024 7:01amZinc (1 source)Start: 08-03-2018 End: 98-62-6456Riue 50 mg tab Take by mouth. 0 08/03/2018 11/12/2021 DiscontinuedComment on above:Take by mouth. Problems Active Problems Problem ClassificationProblemDateDocumented DateEpisodic/ChronicAbdominal pain (15 sources)Abdominal pain; Translations: [Unspecified abdominal pain]Onset: 27-90-4434IezpqjwmGyfef cerebrovascular disease (8 sources)Cerebrovascular accident; Translations: [Cerebral infarction, unspecified]Onset: 146424-33-2344QztxanpUhpmebq disorders (20 sources)Anxiety state; Translations: [Generalized anxiety disorder]Onset: 865799-36-6785XnvyxogBoyxxuewp and vision defects (6 sources)Visual impairmentOnset: 468547-78-6647LfaiwisBbrpxqc on above: Outside Source Comment: Overview: 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Cancer of bronchus; lung (20 sources)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; Translations: [Malignant neoplasm of upper lobe, left bronchus or lung]Onset: 345528-07-4558EqkqfapXikjpex and circulatory congenital anomalies (20 sources)Congenital anomaly of cerebrovascular system; Translations: [Other malformations of cerebral vessels]Onset: 873787-19-2716WlddsvqMhnqwux obstructive pulmonary disease and bronchiectasis (3 sources)Chronic obstructive lung disease; Translations: [Chronic obstructive pulmonary disease, unspecified]Onset: 717652-18-9684FufxlbdGseniqzyxj and other anemia (9 sources)Anemia; Translations: [Anemia, unspecified]32-52-2178LvjkhegmGutfhhce of white blood cells (1 source)Agranulocytosis secondary to cancer chemotherapy; Translations: [Chemotherapy-induced neutropenia]Onset: 44-74-6322AfyymtbCmlfmrmgo of lipid metabolism (14 sources)Hyperlipidemia; Translations: [Mixed hyperlipidemia]Onset: 847440-12-0597ErrrldsQ Codes: Adverse effects of medical drugs (4 sources)Adverse effect of antineoplastic and immunosuppressive drugs, initial encounter; Translations: [Adverse effect of other opioids, initial encounter] Onset: 81-91-7678YndurdqjYjqyucefzszzn symptoms and ill-defined conditions (12 sources)Stress incontinence (female) (male); Translations: [Genuine stress incontinence]Onset: 50-54-7905OdzvhlcMnceyocojlxhv symptoms and ill-defined conditions (12 sources)Hypercalciuria; Translations: [Hypercalciuria]Onset: 01-15-2022 EpisodicHeadache; including migraine (20 sources)Migraine; Translations: [Migraine, unspecified, not intractable, without status migrainosus]Onset: 973384-24-8179EwywitmGhserzbl; including migraine (10 sources)Yapnnolv46-59-5046AlrylslaMduk effects of cerebrovascular disease (7 sources)History of cerebrovascular accident with residual deficit; Translations: [Unspecified sequelae of cerebral infarction]Onset: 09-07-2024 37-04-0682LpfysegApcbjycweef chemotherapy; radiotherapy (2 sources)Patient encounter status; Translations: [Encounter for antineoplastic chemotherapy]Onset: 072310-26-7011CyrtlxdBnkkbmb and fatigue (10 sources)Fatigue due to chemotherapy; Translations: [Other fatigue]Onset: 649215-43-0529JthhezloTmqsgfrsk neoplasm without specification of site (1 source)Malignant (primary) neoplasm, unspecified; Translations: [Secondary malignant neoplasm of unspecified site (HCC)]Onset: 41-01-2823UaymbbwYahjsnwmfb disorders (20 sources)Menopausal syndrome; Translations: [Menopausal and female climacteric states]Onset: 77-62-4080IthyhikHhxcwnkgzgvpea (14 sources)Arthritis; Translations: [Primary osteoarthritis, right ankle and foot]Onset: 515633-59-8778DtyujimKhqty aftercare (4 sources)Under care of palliative care physician; Translations: [Encounter for palliative care]63-83-2770MngnysweFjwfx circulatory disease (8 sources)History of cerebrovascular accident; Translations: [Personal history of transient ischemic attack (TIA), and cerebral infarction without residual deficits]05-85-4591FhfyvtexLhbqh connective tissue disease (10 sources)Ujnmfsaeb07-41-7211UbikfauiNlwib connective tissue disease (1 source)Disorder of rotator cuff; Translations: [Unspecified disorder of synovium and tendon, right shoulder]50-27-5412BrkmkbkeMxblt connective tissue disease (3 sources)Pain of right upper arm; Translations: [Pain in right upper arm] 39-11-4471EwdcioxzVelnh diseases of kidney and ureters (3 sources)Acquired renal cyst without neoplastic change; Translations: [Cyst of kidney, acquired]Onset: 70-87-8289FjlrdhsePcdor diseases of kidney and ureters (7 sources)Simple renal nbtt65-68-3825FkvytkloAwsod diseases of kidney and ureters (3 sources)Hydronephrosis; Translations: [Unspecified hydronephrosis]Onset: 95-26-8977YooqdjsiLhnep diseases of kidney and ureters (3 sources)Urinary tract obstruction; Translations: [Hydronephrosis with renal and ureteral calculous obstruction]Onset: 76-81-8905HubsqufaEawxp ear and sense organ disorders (6 sources)Hearing lossOnset: 642289-92-2453FvpcmkcYblncvv on above: Outside Source Comment: Overview: 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Other eye disorders (20 sources)Vertical nystagmus; 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]Onset: 572835-92-1554AapcrivMdttv eye disorders (10 sources)Bfoctqtba43-26-3829ZzgkvcbUxfwh gastrointestinal disorders (4 sources)Therapeutic opioid induced constipation; Translations: [Drug induced constipation]06-79-9134JqhnbnyrKjqdj gastrointestinal disorders (4 sources)Loose stool; Translations: [Other fecal abnormalities]09-09-2024 EpisodicOther gastrointestinal disorders (1 source)Diarrhea due to drug; Translations: [Toxic gastroenteritis and colitis]59-94-3078UixgorjzInkio hereditary and degenerative nervous system conditions (20 sources)Myoclonus; Translations: [Myoclonus]30-59-0402PnmidwoZeuun hereditary and degenerative nervous system conditions (1 source)Blepharospasm; Translations: [Blepharospasm]24-73-8557MysovwaIpyjw injuries and conditions due to external causes (1 source)Foreign body in bladder; Translations: [Foreign body in bladder, initial encounter]Onset: 48-37-1283JgprkovkWvlmf lower respiratory disease (10 sources)Lung mass; Translations: [Other nonspecific abnormal finding of lung field]97-94-6570MfqcpatfDtlwg lower respiratory disease (2 sources)Dyspnea; Translations: [Shortness of breath]61-38-3668ZhmcmvegGqefh lower respiratory disease (1 source)Chronic cough; Translations: [Chronic cough]Onset: 71-62-7141Satudbps Other lower respiratory disease (1 source)Shortness of breath; Translations: [SOB (shortness of breath)]Onset: 32-24-8491LvenmtbmOvidi nervous system disorders (4 sources)Pain due to neoplastic disease; Translations: [Neoplasm related pain (acute) (chronic)]92-65-6760IquzgyoTzcej nervous system disorders (1 source)Neoplasm related pain (acute) (chronic); Translations: [Neoplasm related pain]Onset: 73-25-8435TqmhbecNpfyh nervous system disorders (1 source)Facial spasm; 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, unspecified] EpisodicOther nervous system disorders (4 sources)Facial nerve motor disorder; Translations: [Other disorders of facial nerve]EpisodicOther nervous system disorders (3 sources)Facial palsy; 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]91-48-3942KnhjiluaZmspi nervous system disorders (16 sources)Trigeminal neuralgia; Translations: [Trigeminal neuralgia]Onset: 501976-73-2965IbslilbzFapaa nervous system disorders (8 sources)Tremor; Translations: [Tremor, unspecified]Onset: 05-27-2024 68-16-1150KcftrnvnMfoarom on above:left handOther nervous system disorders (2 sources)Tremor, unspecified; Translations: [Tremor, unspecified]Onset: 51-50-5976CqgmqkmvLahem nervous system disorders (1 source)Hemifacial spasm; 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, unspecified] 59-29-8960OxhwveceNthry non-traumatic joint disorders (2 sources)Chronic pain of right upper limb; Translations: [Pain in right shoulder]10-94-0571GzzlrsbfUeymc non-traumatic joint disorders (2 sources)Hip pain; Translations: [Pain in right hip]70-58-7183SfleoajeFrbfv non-traumatic joint disorders (5 sources)Joint pain; Translations: [Pain in unspecified joint]09-07-2024 EpisodicOther nutritional; endocrine; and metabolic disorders (20 sources)Obese class I; Translations: [Obesity, unspecified]Onset: 11-12-2021 ChronicOther nutritional; endocrine; and metabolic disorders (12 sources)Body mass index 30+ - obesity; Translations: [Body mass index (BMI) 31.0-31.9, adult]Onset: 232110-57-1484IbcqqwqMieud nutritional; endocrine; and metabolic disorders (2 sources)Body mass index (BMI) 31.0-31.9, adult; Translations: [Body mass index (BMI) 31.0-31.9, adult]Onset: 67-21-6548RihqvdtRzwjg nutritional; endocrine; and metabolic disorders (2 sources)Loss of appetite; Translations: [Anorexia]75-70-8943EjlgwgmfVfeed screening for suspected conditions (not mental disorders or infectious disease) (1 source)MRI scan abnormal; Translations: [Abnormal findings on diagnostic imaging of other specified body structures]40-46-3897OmhdjsfSpodl skin disorders (3 sources)Swelling of upper limb; Translations: [Other specified soft tissue disorders]60-13-2942TunfcersVoecwshgj by other medications and drugs (1 source)Oral mucositis (ulcerative) due to antineoplastic therapy; Translations: [Mucositis due to antineoplastic therapy]Onset: 71-77-4298Lwppnhaf Residual codes; unclassified (6 sources)Hypnapompic hallucinations; Translations: [Other hallucinations] 36-77-2306SewwqimaJprlhtgd codes; unclassified (1 source)Pain; Translations: [Pain, unspecified]07-63-0726GsirxxjcVmbpqmep codes; unclassified (1 source)Patient encounter status; Translations: [Encounter for immunotherapy] 77-83-6471RexqqdryXaejjqeeq and history of mental health and substance abuse codes (5 sources)Ex-smoker; Translations: [Personal history of nicotine dependence] Onset: 042729-66-8703SgfdsoncFfxvbaezp malignancies (20 sources)Secondary malignant neoplasm of bone; Translations: [Secondary malignant neoplasm of bone]74-99-1120XbppkwoYfpipipiw malignancies (4 sources)Secondary malignant neoplastic disease; Translations: [Secondary malignant neoplasm of unspecified site]33-80-4563OyakdxoBrcuppotk malignancies (4 sources)Secondary malignant neoplasm of unspecified site; Translations: [Other malignant neoplasm without specification of site]Onset: 09-07-2024 94-05-6653LddkfbbYnyewumui malignancies (1 source)Secondary malignant neoplasm of unknown site; Translations: [Secondary malignant neoplasm of unspecified site]10-16-9075QdgprksTvbjeermv malignancies (2 sources)Secondary malignant neoplasm of bone; Translations: [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)]Onset: 34-55-7297Lvmgffg Secondary malignancies (1 source)Secondary malignant neoplasm of bone marrow; Translations: [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)]Onset: 47-50-3851Qcfovoh Spondylosis; intervertebral disc disorders; other back problems (16 sources)Degeneration of lumbar intervertebral disc; Translations: [Degenerative disc disease, lumbar]Onset: 220731-93-1023WpcfawbAlutekx disorders (20 sources)Multinodular goiter; Translations: [Nontoxic multinodular goiter] Onset: 31-74-4776NivmrwzHbyieggpidsx (1 source)Patient encounter -21-3969Ejmtyzplktjt (2 sources)A [facility] screening has identified you as FRAIL or [...] Four Ways to Beat the Frailty Risk [email or web address]-aeqzpy-klbu- gumx-ge-kdky-the-fra yfda-zvti28-92qpto69-88-5638Scephvvbgqha (1 source)Cough, unspecified type; Translations: [Cough, unspecified type]Onset: 12-63-4347Jqocagtbujrw (1 source)Acute cough; Translations: [Acute cough]Onset: 04-12-2025 Past or Other Problems Problem ClassificationProblemDateDocumented DateEpisodic/Chronic Administrative/social admission (9 sources)Other reduced mobility; Translations: [Impaired mobility and activities of daily living]Onset: 472240-65-4278DfebxpaySbyxreqwr and vision defects (8 sources)Visual hallucinations; Translations: [Visual hallucinations]Onset: 386125-93-3505ArofmlhtUlzszime of urinary tract (20 sources)Kidney stone; Translations: [Calculus of kidney]Onset: 01-15-2022 EpisodicCancer of bronchus; lung (9 sources)History of malignant neoplasm of thoracic cavity structure; Translations: [Personal history of other malignant neoplasm of bronchus and lung]Onset: 787374-75-0722UpeinlhgQjyumtoaab associated with dizziness or vertigo (8 sources)Dizziness; Translations: [Dizziness and giddiness]Onset: 08-11-2018 07-55-4795MyrsstdoOokmmsnymm and other anemia (4 sources)Anemia, unspecified; Translations: [Anemia, unspecified]Onset: 065031-35-6076AjfgekebZaoqxsmwe of teeth and jaw (20 sources)Articular disc disorder of temporomandibular joint; Translations: [Articular disc disorder of temporomandibular joint, unspecified side]Onset: 024925-50-2202HaauknexTfngc of unknown origin (7 sources)Intermittent fever; Translations: [Fever, unspecified]Onset: 979858-77-5704TilxgfktOwvlgnww of upper limb (16 sources)Closed fracture of distal end of radius; Translations: [Unspecified fracture of the lower end of left radius, subsequent encounter for closed fracture with routine healing]Onset: 298466-84-8230LjqvxfhlVifwri and vomiting (2 sources)Nausea; Translations: [Nausea]Onset: 686014-42-8200Fkgrdtzt Other aftercare (1 source)Encounter for palliative care; Translations: [Palliative care by specialist]Onset: 34-95-2664WstqbxlkItvjy bone disease and musculoskeletal deformities (1 source)Other specified disorders of bone density and structure, left thigh; Translations: [OTH D/O BONE DEN STRUCT LT THIGH]Onset: 72-36-9227PfrirnaoKbqzz bone disease and musculoskeletal deformities (8 sources)Disorder of bone, unspecified; Translations: [Disorder of bone and cartilage, unspecified]Onset: 681493-33-5120FsglybccNdicy connective tissue disease (20 sources)Trismus; Translations: [Cramp and spasm]Onset: EpisodicOther connective tissue disease (20 sources)Muscle pain; Translations: [Myalgia and myositis, unspecified]Onset: 488037-56-4688DlecmxxkFzupp connective tissue disease (20 sources)Muscle, ligament and fascia disorders; Translations: [Disorder of muscle, unspecified]Onset: 026042-64-2676GgkvtpmuQnprh connective tissue disease (1 source)Calcaneal spur, right foot; Translations: [CALCANEAL SPUR RIGHT FOOT] Onset: 94-92-8837WzjnjwbrUzizw connective tissue disease (4 sources)Pain in right foot; Translations: [PAIN IN RIGHT FOOT]Onset: 79-47-8770IxwcwqglMmizu connective tissue disease (1 source)Pain in right upper arm; Translations: [Pain of right upper arm]Onset: 48-44-6151KgohzubtCkdwo connective tissue disease (1 source)Other specified soft tissue disorders; Translations: [Swelling of arm] Onset: 71-92-2464OulvquomQisgl eye disorders (20 sources)Abducens nerve palsy; Translations: [Sixth [abducent] nerve palsy, unspecified eye]Onset: 895484-30-0814CrxpdvqvEvqqn gastrointestinal disorders (3 sources)Other fecal abnormalities; Translations: [Abnormal feces]Onset: 030781-47-4448EnucrjbzFpytn gastrointestinal disorders (1 source)Drug induced constipation; Translations: [Constipation due to opioid therapy]Onset: 54-87-0720BheskytpUgfep lower respiratory disease (1 source)Other nonspecific abnormal finding of lung field; Translations: [Lung mass]Onset: 61-01-9349UkdfdwtlKueli nervous system disorders (20 sources)Cranial nerve disorder; Translations: [Cranial nerve disorder, unspecified]Onset: 997394-41-9889YpdbdyjlQgtjg nervous system disorders (8 sources)Alcala's palsy; 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]Onset: EpisodicOther non-traumatic joint disorders (8 sources)Pain of left wrist; Translations: [Pain in left wrist]Onset: 905934-17-1802QsyplnyaEvcue non-traumatic joint disorders (3 sources)Pain in right shoulder; Translations: [Pain in joint, shoulder region]Onset: 808165-40-0492SllxoxifTvwpx non-traumatic joint disorders (4 sources)Pain in unspecified joint; Translations: [Pain in joint, site unspecified]Onset: 395738-25-7107FrcbvyrdLfbwb non-traumatic joint disorders (1 source)Pain in right hip; Translations: [Pain in right hip]Onset: 07-29-2024 EpisodicPneumonia (except that caused by tuberculosis or sexually transmitted disease) (9 sources)Community acquired pneumonia; Translations: [Pneumonia, unspecified organism]Onset: 103237-37-3612GwehkkqlEvbmpwtq codes; unclassified (4 sources)Asymptomatic menopausal state; Translations: [ASYMPTOMATIC MENOPAUSAL STATE]Onset: 37-73-4347MxjohrjtUhqzvjzb codes; unclassified (1 source)Localized edema; Translations: [Localized edema]Onset: 11-08-2024 EpisodicResidual codes; unclassified (1 source)Other specified health status; Translations: [Other specified health status]Onset: 02-04-2872BurkufidFzfwfmsflhq; intervertebral disc disorders; other back problems (16 sources)Neck pain; Translations: [Cervicalgia]Onset: EpisodicUnclassified (4 sources)Obstructive rkxypxccimdkey34-43-9585Ontswwtuabkw (1 source)Onset: 656690-17-7291Itoovabvnllb (1 source)Lytic bone lesions on idfr13-70-3197 Results Test NameValueInterpretationReference RangeFacilityCBC W Auto Differential panel (Bld)on 59-11-5498Gmmoicgvz (Bld) [#/Vol]10*3/uLNormal<0.11CS[facility] on above:Order Comment: Specimen Type: BLOOD SPECIMENOrdering Facility: [facility] Address:[address] [place], [place] [address]Gahumbfch By: #### [id number] ####[facility] LABCLIA [id number] [place], [place] [address]Gtuipbvns/100 WBC (Bld)0.1 % NormalAvita Health System on above:Order Comment: Specimen Type: BLOOD SPECIMENOrdering Facility: [facility] Address:[address] [place], [place] [address]Performed By: #### [id number] ####[facility] LABCLIA [id number] [place] [address] Differential cell count method Nom (Bld)AutoNormalClevelSampson Regional Medical Center Comment on above:Order Comment: Specimen Type: BLOOD SPECIMENOrdering Facility: [facility] Address:[address] [place] [address] Performed By: #### 13821-6 ####[facility] LABCLIA [id number] [place], [place] [address]Rgizqtninai (Bld) [#/Vol] 10*3/uLNormal<0.46[facility] on above:Order Comment: Specimen Type: BLOOD SPECIMENOrdering Facility: [facility] Address:[address] [place], [place] [address]Performed By: #### 99587-7 ####[facility] LABCLIA [id number] [place], [place] [address]Uefzxevlzzt/100 WBC (Bld)0.0 %NormalAvita Health Systemment on above:Order Comment: Specimen Type: BLOOD SPECIMENOrdering Facility: [facility] Address:[address] [place], [place] [address]Performed By: #### 09215-5 ####[facility] LABCLIA [id number] [place], [place] [address]Jlfodshgpav distribution width (RBC) [Ratio]16.2 %High11.5-15.0[facility] on above:Order Comment: Specimen Type: BLOOD SPECIMENOrdering Facility: [facility] Address:[address] [place], [place] [address]Performed By: #### 75473- 8 ####[facility] LABCLIA [id number] [place], [place] [address]Vinoebtcts (Bld) [Volume fraction]36.3 %Hqthii99.0-46.0 [facility] on above:Order Comment: Specimen Type: BLOOD SPECIMENOrdering Facility: [facility] Address:[address] [place], [place] [address]Performed By: #### 48516-8 ####[facility] LABIA [id number] [place], [place] [address]Dkmcjuivyh (Bld) [Mass/Vol]10.9 g/dLLow11.5-15.5[facility] on above:Order Comment: Specimen Type: BLOOD SPECIMENOrdering Facility: [facility] Address:[address] [place], [place] [address]Performed By: #### 18652- 8 ####[facility] LABIA [id number] [place], [place] [address]Wogibphm granulocytes (Bld) [#/Vol]0.06 10*3/uLNormal <0.10[facility] on above:Order Comment: Specimen Type: BLOOD SPECIMENOrdering Facility: [facility] Address:[address] [place], [place] [address]Performed By: #### 60611-7 ####[facility] LABIA [id number] [place], [place] [address]Kotpcqoq granulocytes/100 WBC (Bld)0.7 %NormalAvita Health System on above: Order Comment: Specimen Type: BLOOD SPECIMENOrdering Facility: [facility] Address:[address] [place], [place] [address]Performed By: #### 62216- 8 ####[facility] LABIA [id number] [place], [place] [address]Itnssgdpmvt (Bld) [#/Vol]0.76 10*3/uLLow1.00-4.00 [facility] on above:Order Comment: Specimen Type: BLOOD SPECIMENOrdering Facility: [facility] Address:[address] [place], [place] [address]Performed By: #### 06829-5 ####[facility] LABCLIA [id number] [place], [place] [address]Mczquqldvkf/100 WBC (Bld)8.4 %NormalAvita Health System on above:Order Comment: Specimen Type: BLOOD SPECIMENOrdering Facility: [facility] Address:[address] [place], [place] [address]Performed By: #### 46926-2 ####[facility] LABCLIA [id number] [place], [place] [address]IFL (RBC) [Entitic mass]28.1 viJpzovq97.0-34.0[facility] on above:Order Comment: Specimen Type: BLOOD SPECIMENOrdering Facility: [facility] Address:[address] [place], [place] [address]Performed By: #### 95834-6 ####[facility] LABIA [id number] [place], [place] [address]VOUC (RBC) [Mass/Vol]30.0 g/dLLow30.5-36.0[facility] on above:Order Comment: Specimen Type: BLOOD SPECIMENOrdering Facility: [facility] Address:[address] [place], [place] [address]Performed By: #### 84029- 8 ####[facility] LABIA [id number] [place], [place] [address]MBS (RBC) [Entitic vol]93.6 fOGfobcv55.0-100.0[facility] on above:Order Comment: Specimen Type: BLOOD SPECIMENOrdering Facility: [facility] Address:[address] [place], [place] [address]Performed By: #### 95609-4 ####[facility] LABIA [id number] [place], [place] [address]Plmwekisy (Bld) [#/Vol]0.23 10*3/uLNormal<0.87[facility] on above:Order Comment: Specimen Type: BLOOD SPECIMENOrdering Facility: [facility] Address:[address] [place], [place] [address]Performed By: #### 42805- 8 ####[facility] LABCLIA [id number] [place], [place] [address]Anaqvrkvm/100 WBC (Bld)2.5 %NormalAv[facility] on above:Order Comment: Specimen Type: BLOOD SPECIMENOrdering Facility: [facility] Address:[address] [place], [place] [address]Performed By: #### 57400-2 ####[facility] LABCLIA [id number] [place], [place] [address]Vrovxlyoqkv (Bld) [#/Vol]8.01 10*3/uLHigh1.45-7.50[facility] on above:Order Comment: Specimen Type: BLOOD SPECIMENOrdering Facility: [facility] Address:[address] [place], [place] [address]Performed By: #### 52388-1 ####[facility] LABCLIA [id number] [place], [place] [address]Jyohutrwkaw/100 WBC (Bld)88.3 %NormalAv[facility] on above:Order Comment: Specimen Type: BLOOD SPECIMENOrdering Facility: [facility] Address:[address] [place], [place] [address]Performed By: #### 48643-3 ####[facility] LABCLIA [id number] [place], [place] [address]Xzppilrvm RBC (Bld) [#/Vol] 10*3/uLNormal<0.01[facility] on above:Order Comment: Specimen Type: BLOOD SPECIMENOrdering Facility: [facility] Address:[address] [place], [place] [address]Performed By: #### 02691-6 ####[facility] LABCLIA [id number] [place], [place] [address]Jrdilgttk RBC/100 WBC (Bld) [Ratio]0.0 /100 WBCNormal [facility] on above:Order Comment: Specimen Type: BLOOD SPECIMENOrdering Facility: [facility] Address:[address] [place], [place] [address]Performed By: #### 47913-4 ####[facility] LABCLIA [id number] [place], [place] [address]Cirmzcuh mean volume (Bld) [Entitic vol]9.0 fLNormal9.0-12.7[facility] on above:Order Comment: Specimen Type: BLOOD SPECIMENOrdering Facility: [facility] Address:[address] [place] [address] Performed By: #### 94749-0 ####[facility] LABIA [id number] [place], [place] [address]Skyoulbnc (Bld) [#/Vol]398 10*3/cRIdbuyt728-324TircmtifnAv[facility] Health System on above:Order Comment: Specimen Type: BLOOD SPECIMENOrdering Facility: [facility] Address:[address] [place], [place] [address]Performed By: #### 25547-7 ####[facility] LABCLIA [id number] [place], [place] [address]TQA (Bld) [#/Vol]3.88 10*6/uLLow3.90-5.20[facility] on above:Order Comment: Specimen Type: BLOOD SPECIMENOrdering Facility: [facility] Address:[address] [place], [place] [address]Performed By: #### 80642-8 ####[facility] LABIA [id number] [place], [place] [address]PJT (Bld) [#/Vol]9.07 10*3/uL Normal3.70-11.00[facility] on above:Order Comment: Specimen Type: BLOOD SPECIMENOrdering Facility: [facility] Address:[address] [place], [place] [address]Performed By: #### 56288-2 ####[facility] LABCLIA [id number] [place] [address]UGFUDTui 03-41-4096OHJECPQxhcmsKaygorwnyCleveland Clinic [facility] metabolic 2000 panelon 54-76-1153Izlxkzv [Mass/Vol]3.6 g/dLLow 3.9-4.9[facility] on above:Order Comment: Specimen Type: BLOOD SPECIMENOrdering Facility: [facility] Address:[address] [place], [place] [address]Performed By: #### 65945-6 ####[facility] LABCLIA [id number] [place], [place] [address]DEP [Catalytic activity/Vol]91 U/ACavmfu35-377YbergrxsqAvita Health System on above:Order Comment: Specimen Type: BLOOD SPECIMENOrdering Facility: [facility] Address:[address] [place], [place] [address]Performed By: #### 94420-1 ####[facility] LABCLIA [id number] [place] [address]GRQ [Catalytic activity/Vol]12 U/LNormal7-38[facility] on above:Order Comment: Specimen Type: BLOOD SPECIMENOrdering Facility: [facility] Address:[address] [place], [place] [address]Performed By: #### 18510-4 ####[facility] LABCLIA [id number] [facility] CENTERAMADEOTUBA CITY REGIONAL HEALTH CARE CORPORATIONLLUVIACALHOUN, [place] [address]Wxqjc gap [Moles/Vol]10 mmol/LNormal8-15[facility] on above:Order Comment: Specimen Type: BLOOD SPECIMENOrdering Facility: [facility] Address:[address] [place], [place] [address]Performed By: #### 23498- 8 ####[facility] LABCLIA [id number] [facility] [place], [place] [address]ECX [Catalytic activity/Vol]9 U/OOxp88-89PyaopthmqAv[facility] System on above:Order Comment: Specimen Type: BLOOD SPECIMENOrdering Facility: [facility] Address:[address] [place], [place] [address]Performed By: #### 97258-5 ####[facility] LABCLIA [id number] [place], [place] [address]Qbmhwfyms [Mass/Vol]0.2 mg/dL Normal0.2-1.3[facility] on above:Order Comment: Specimen Type: BLOOD SPECIMENOrdering Facility: [facility] Address:[address] [place], [place] [address]Performed By: #### 63315-0 ####[facility] LABCLIA [id number] [facility] [address] Calcium [Mass/Vol]9.7 mg/dLNormal8.5-10.2[facility] on above:Order Comment: Specimen Type: BLOOD SPECIMENOrdering Facility: [facility] Address:[address] [place], [place] [address]Performed By: #### 72578-6 ####[facility] LABCLIA [id number] [facility] [place], [place] [address]Jgnceoyf [Moles/Vol]102 mmol/MFuwcwr86-514WruuowxqxAv[facility] on above:Order Comment: Specimen Type: BLOOD SPECIMENOrdering Facility: [facility] Address:[address] [place], [place] [address]Performed By: #### 58833-2 ####[facility] LABIA [id number] [place], [place] [address]QR7 [Moles/Vol] 28 mmol/NIvoimp87-09YxrvdowxeAvita Health System on above:Order Comment: Specimen Type: BLOOD SPECIMENOrdering Facility: [facility] Address:[address] [place], [place] [address]Dmlxwyeru By: #### 37189-3 ####[facility] LABCLIA [id number] [place], [place] [address]Awqnmevugv [Mass/Vol]0.46 mg/dLLow0.58-0.96[facility] on above:Order Comment: Specimen Type: BLOOD SPECIMENOrdering Facility: [facility] Address:[address] [place], [place] [address]Performed By: #### 35963-7 ####[facility] LABCLIA [id number] [place], [place] [address]uXAEja SerPlBld CKD-EPI 8925601 mL/min/1.73m???Normal>=60[facility] on above:Order Comment: Specimen Type: BLOOD SPECIMENOrdering Facility: [facility] Address:[address] [place], [place] [address]Result Comment: Estimated Glomerular Filtration Rate (eGFR) is [...] not accurately reflect actual GFR.Performed By: #### 81319-8 ####[facility] LABCLIA [id number] [place], [place] [address]Hhxlmum [Mass/Vol]141 mg/yLLysb99-28KvuaarehsAvita Health System on above:Order Comment: Specimen Type: BLOOD SPECIMENOrdering Facility: [facility] Address:[address] [place], [place] [address]Result Comment: The [place] Diabetes Association (ADA) provides guidance for cutoff [...] Standards of Medical Care in Diabetes 2016, [place] Diabetes Association. Diabetes Care. 2016.39(Suppl 1).Performed By: #### 45741-5 ####[facility] LABCLIA [id number] [place], [place] [address]Nepnmzinp [Moles/Vol]4.2 mmol/LNormal3.7-5.1[facility] on above:Order Comment: Specimen Type: BLOOD SPECIMENOrdering Facility: [facility] Address:[address] [place], [place] [address]Performed By: #### 84479-1 ####[facility] LABCLIA [id number] [place], [place] [address]Isfyyhd [Mass/Vol]7.4 g/dLNormal6.3-8.0[facility] on above:Order Comment: Specimen Type: BLOOD SPECIMENOrdering Facility: [facility] Address:[address] [place], [place] [address]Performed By: #### 75205- 8 ####[facility] LABCLIA [id number] [place], [place] [address]Cvkgss [Moles/Vol]140 mmol/WCusfts183-536FbjdwupjwAvita Health System on above:Order Comment: Specimen Type: BLOOD SPECIMENOrdering Facility: [facility] Address:[address] [place], [place] [address]Performed By: #### 49445-2 ####[facility] LABIA [id number] [place], [place] [address]Wfup nitrogen [Mass/Vol]14 mg/dLNormal7-21[facility] on above:Order Comment: Specimen Type: BLOOD SPECIMENOrdering Facility: [facility] Address:[address] [place], [place] [address]Performed By: #### 43827-9 ####[facility] LABCLIA [id number] [place], [place] [address]IWHCoa 80-34-7102PPXQCytahgTxjhonjld Clinic ClevelandCBC W Auto Differential panel (Bld)on 41-11-3244Uwlhgceck (Bld) [#/Vol]10*3/uLNormal <0.11[facility] on above:Order Comment: Specimen Type: BLOOD SPECIMENOrdering Facility: [facility] Address:[address] [place], [place] [address]Performed By: #### 14970-6 ####[facility] LABCLIA [id number] [place] [address] Basophils/100 WBC (Bld)0.1 %NormalAv[facility] Health System on above: Order Comment: Specimen Type: BLOOD SPECIMENOrdering Facility: [facility] Address:[address] [place], [place] [address]Performed By: #### 67334- 8 ####[facility] LABCLIA [id number] [place], [place] [address]Vrvqatyocokj cell count method Nom (Bld)AutoNormal [facility] on above:Order Comment: Specimen Type: BLOOD SPECIMENOrdering Facility: [facility] Address:[address] [place], [place] [address]Performed By: #### 24754-6 ####[facility] LABCLIA [id number] [place], [place] [address]Axgrmkqlknl (Bld) [#/Vol]10*3/uLNormal<0.46[facility] on above:Order Comment: Specimen Type: BLOOD SPECIMENOrdering Facility: [facility] Address:[address] [place], [place] [address]Performed By: #### 96285- 8 ####[facility] LABCLIA [id number] [place], [place] [address]Cidzzzonjlw/100 WBC (Bld)0.0 %NormalAvita Health System on above:Order Comment: Specimen Type: BLOOD SPECIMENOrdering Facility: [facility] Address:[address] [place], [place] [address]Performed By: #### 44612-6 ####[facility] LABIA [id number] [place], [place] [address]Lmwasfaadfu distribution width (RBC) [Ratio]15.7 %High11.5-15.0[facility] on above:Order Comment: Specimen Type: BLOOD SPECIMENOrdering Facility: [facility] Address:[address] [place], [place] [address]Performed By: #### 78649- 8 ####[facility] LABIA [id number] [place], [place] [address]Bihcprwsoj (Bld) [Volume fraction]33.0 %Low36.0-46.0 [facility] on above:Order Comment: Specimen Type: BLOOD SPECIMENOrdering Facility: [facility] Address:[address] [place], [place] [address]Performed By: #### 51979-8 ####[facility] LABIA [id number] [place], [place] [address]Wktfjhgcwn (Bld) [Mass/Vol]9.9 g/dLLow11.5-15.5[facility] on above:Order Comment: Specimen Type: BLOOD SPECIMENOrdering Facility: [facility] Address:[address] [place], [place] [address]Performed By: #### 97251- 8 ####[facility] LABIA [id number] [place], [place] [address]Wtqrhwes granulocytes (Bld) [#/Vol]0.03 10*3/uLNormal <0.10[facility] on above:Order Comment: Specimen Type: BLOOD SPECIMENOrdering Facility: [facility] Address:[address] [place], [place] [address]Performed By: #### 38495-0 ####[facility] LABIA [id number] [place], [place] [address]Jjdgzjbg granulocytes/100 WBC (Bld)0.3 %NormalAvita Health System on above: Order Comment: Specimen Type: BLOOD SPECIMENOrdering Facility: [facility] Address:[address] [place], [place] [address]Performed By: #### 85592- 8 ####[facility] LABIA [id number] [place], [place] [address]Exofbwwnqan (Bld) [#/Vol]0.59 10*3/uLLow1.00-4.00 [facility] on above:Order Comment: Specimen Type: BLOOD SPECIMENOrdering Facility: [facility] Address:[address] [place], [place] [address]Performed By: #### 21190-0 ####[facility] LABIA [id number] [place], [place] [address]Zbumgzopbpv/100 WBC (Bld)6.7 %NormalAvita Health System on above:Order Comment: Specimen Type: BLOOD SPECIMENOrdering Facility: [facility] Address:[address] [place], [place] [address]Performed By: #### 48493-6 ####[facility] LABIA [id number] [place], [place] [address]WDG (RBC) [Entitic mass]28.9 gfFdkzke93.0-34.0[facility] on above:Order Comment: Specimen Type: BLOOD SPECIMENOrdering Facility: [facility] Address:[address] [place], [place] [address]Performed By: #### 53203-8 ####[facility] LABIA [id number] [place], [place] [address]ALZN (RBC) [Mass/Vol]30.0 g/dLLow30.5-36.0[facility] on above:Order Comment: Specimen Type: BLOOD SPECIMENOrdering Facility: [facility] Address:[address] [place], [place] [address]Performed By: #### 25996- 8 ####[facility] LABCLIA [id number] [place], [place] [address]WJI (RBC) [Entitic vol]96.2 xQNvyhfu16.0-100.0[facility] on above:Order Comment: Specimen Type: BLOOD SPECIMENOrdering Facility: [facility] Address:[address] [place], [place] [address]Performed By: #### 12632-0 ####[facility] LABCLIA [id number] [place], [place] [address] (Bld) [#/Vol]0.18 10*3/uLNormal<0.87[facility] on above:Order Comment: Specimen Type: BLOOD SPECIMENOrdering Facility: [facility] Address:[address] [place], [place] [address]Performed By: #### 70178- 8 ####[facility] LABCLIA [id number] [place], [place] [address]Wcsykdzwb/100 WBC (Bld)2.0 %NormalAvita Health System on above:Order Comment: Specimen Type: BLOOD SPECIMENOrdering Facility: [facility] Address:[address] [place], [place] [address]Performed By: #### 46478-1 ####[facility] LABCLIA [id number] [place], [place] [address]Tyhynpgxtar (Bld) [#/Vol]8.01 10*3/uLHigh1.45-7.50[facility] on above:Order Comment: Specimen Type: BLOOD SPECIMENOrdering Facility: [facility] Address:[address] [place], [place] [address]Performed By: #### 11034-3 ####[facility] LABCLIA [id number] [place], [place] [address]Omulfsxmbwt/100 WBC (Bld)90.9 %NormalAvita Health System on above:Order Comment: Specimen Type: BLOOD SPECIMENOrdering Facility: [facility] Address:[address] [place], [place] [address]Performed By: #### 87997-8 ####[facility] LABCLIA [id number] [place], [place] [address]Smiqiifqm RBC (Bld) [#/Vol] 10*3/uLNormal<0.01[facility] on above:Order Comment: Specimen Type: BLOOD SPECIMENOrdering Facility: [facility] Address:[address] [place], [place] [address]Performed By: #### 26753-2 ####[facility] LABIA [id number] [place], [place] [address]Hqtprnipx RBC/100 WBC (Bld) [Ratio]0.0 /100 WBCNormal [facility] on above:Order Comment: Specimen Type: BLOOD SPECIMENOrdering Facility: [facility] Address:[address] [place], [place] [address]Performed By: #### 70104-1 ####[facility] LABIA [id number] [place], [place] [address]Mlbpbikq mean volume (Bld) [Entitic vol]9.4 fLNormal9.0-12.7[facility] on above:Order Comment: Specimen Type: BLOOD SPECIMENOrdering Facility: [facility] Address:[address] [place] [address] Performed By: #### 84557-3 ####[facility] LABIA [id number] [place], [place] [address]Nrcagrgjs (Bld) [#/Vol]418 10*3/iZSjvj247-409DdawxjhhfAvita Health System on above:Order Comment: Specimen Type: BLOOD SPECIMENOrdering Facility: [facility] Address:[address] [place], [place] [address]Performed By: #### 82797-8 ####[facility] LABCLIA [id number] [place], [place] [address]LSV (Bld) [#/Vol]3.43 10*6/uLLow3.90-5.20[facility] on above:Order Comment: Specimen Type: BLOOD SPECIMENOrdering Facility: [facility] Address:[address] [place], [place] [address]Performed By: #### 50970-9 ####[facility] LABIA [id number] [place], [place] [address]IPS (Bld) [#/Vol]8.82 10*3/uL Normal3.70-11.00[facility] on above:Order Comment: Specimen Type: BLOOD SPECIMENOrdering Facility: [facility] Address:[address] [place], [place] [address]Performed By: #### 75704-6 ####[facility] LABCLIA [id number] [place], [place] [address]RDXJVAkl 80-36-2836LLWEXLTgzfgcOynbpdcny Clinic [facility] CNPNon 47-23-0454YLTCTsztkuMilzjirtp Clinic ClevelandComprehensive metabolic 2000 panelon 42-30-8691Vhdesay [Mass/Vol]3.4 g/dLLow3.9-4.9[facility] on above:Order Comment: Specimen Type: BLOOD SPECIMENOrdering Facility: [facility] Address:[address] [place], [place] [address]Performed By: #### 76614-8 ####[facility] LABCLIA [id number] [place], [place] [address]ZMB [Catalytic activity/Vol]94 U/TYsdnpu25-450QrbcmmgtrAvita Health System on above:Order Comment: Specimen Type: BLOOD SPECIMENOrdering Facility: [facility] Address:[address] [place], [place] [address]Performed By: #### 99775-1 ####[facility] LABCLIA [id number] [facility]ET[facility] [place] [address]GWK [Catalytic activity/Vol]16 U/LNormal7-38[facility] on above:Order Comment: Specimen Type: BLOOD SPECIMENOrdering Facility: [facility] Address:[address] [place], [place] [address]Performed By: #### 99541-4 ####[facility] LABCLIA [id number] [place], [place] [address]Vfvgu gap [Moles/Vol]17 mmol/LHigh8-15[facility] on above:Order Comment: Specimen Type: BLOOD SPECIMENOrdering Facility: [facility] Address:[address] [place], [place] [address]Performed By: #### 72072- 8 ####[facility] LABCLIA [id number] [facility] [place], [place] [address]FGW [Catalytic activity/Vol]10 U/KZrb14-85SlnjtcjvpAvita Health System on above:Order Comment: Specimen Type: BLOOD SPECIMENOrdering Facility: [facility] Address:[address] [place], [place] [address]Performed By: #### 19856-0 ####[facility] LABCLIA [id number] [place], [place] [address]Wfvzcllmr [Mass/Vol]mg/dLLow0.2-1.3[facility] on above:Order Comment: Specimen Type: BLOOD SPECIMENOrdering Facility: [facility] Address:[address] [place], [place] [address]Performed By: #### 59214- 8 ####[facility] LABCLIA [id number] [facility], [place] [address]Uufmmml [Mass/Vol]9.7 mg/dLNormal8.5-10.2[facility] on above:Order Comment: Specimen Type: BLOOD SPECIMENOrdering Facility: [facility] Address:[address] [place], [place] [address]Performed By: #### 08783-1 ####[facility] LABCLIA [id number] [place], [place] [address]Wlsmmbpd [Moles/Vol]103 mmol/L Bdkioq35-094TwkfddcksAvita Health System on above:Order Comment: Specimen Type: BLOOD SPECIMENOrdering Facility: [facility] Address:[address] [place], [place] [address]Performed By: #### 76806-2 ####[facility] LABCLIA [id number] [place] [address] CO2 [Moles/Vol]22 mmol/UYsugzi38-60TfyicijhyAvita Health System on above: Order Comment: Specimen Type: BLOOD SPECIMENOrdering Facility: [facility] Address:[address] [place], [place] [address]Performed By: #### 58116- 8 ####[facility] LABCLIA [id number] [facility] [place], [place] [address]Hgvltxxzzt [Mass/Vol]0.46 mg/dLLow0.58-0.96[facility] on above:Order Comment: Specimen Type: BLOOD SPECIMENOrdering Facility: [facility] Address:[address] [place], [place] [address]Performed By: #### 20978-5 ####[facility] LABCLIA [id number] [place], [place] [address]jWAFvb SerPlBld CKD-EPI 8741494 mL/min/1.73m???Normal>=60[facility] on above:Order Comment: Specimen Type: BLOOD SPECIMENOrdering Facility: [facility] Address:[address] [address]Result Comment: Estimated Glomerular Filtration Rate (eGFR) is [...] not accurately reflect actual GFR.Performed By: #### 63035-3 ####[facility] LABCLIA [id number] [place], [place] [address]Qiukxvw [Mass/Vol]174 mg/wGBxvf87-59ArbxlqcccAvita Health System on above:Order Comment: Specimen Type: BLOOD SPECIMENOrdering Facility: [facility] Address:[address] [place], [place] [address]Result Comment: The Prydeinig Diabetes Association (ADA) provides guidance for cutoff [...] Standards of Medical Care in Diabetes 2016, Prydeinig Diabetes Association. Diabetes Care. 2016.39(Suppl 1).Performed By: #### 77861-7 ####[facility] LABCLIA [id number] [place], [place] [address]Xeoaoswfs [Moles/Vol]4.3 mmol/LNormal3.7-5.1[facility] on above:Order Comment: Specimen Type: BLOOD SPECIMENOrdering Facility: [facility] Address:[address] [address]Performed By: #### 70285-5 ####[facility] LABCLIA [id number] [place], [place] [address]Rnnqvdb [Mass/Vol]6.7 g/dLNormal6.3-8.0[facility] on above:Order Comment: Specimen Type: BLOOD SPECIMENOrdering Facility: [facility] Address:[address] [place], [place] [address]Performed By: #### 31828- 8 ####[facility] LABCLIA [id number] [place], [place] [address]Hilbyj [Moles/Vol]142 mmol/YBhwvbt082-511OrmsexkujAvita Health System on above:Order Comment: Specimen Type: BLOOD SPECIMENOrdering Facility: [facility] Address:[address] [place], [place] [address]Performed By: #### 96601-1 ####[facility] LABCLIA [id number] [place], [place] [address]Frdj nitrogen [Mass/Vol]20 mg/dLNormal7-21[facility] on above:Order Comment: Specimen Type: BLOOD SPECIMENOrdering Facility: [facility] Address:[address] [place], [place] [address]Performed By: #### 16689-3 ####[facility] LABCLIA [id number] [place], [place] [address]QSGKzl 31-08-5353QHHZIlyfxnBgbbhbmdh Clinic ClevelandCBC W Auto Differential panel (Bld)on 79-36-5322Iwsmztetz (Bld) [#/Vol]0.02 10*3/uL Normal<0.11[facility] on above:Order Comment: Specimen Type: BLOOD SPECIMENOrdering Facility: [facility] Address:[address] [place], [place] [address]Performed By: #### 90673-8 ####[facility] LABCLIA [id number] [place], [place] [address]NFEYWYCPBADAMS COUNTY REG[facility] LABCLIA [id number] [address]Basophils/100 WBC (Bld)2.0 % [facility] on above:Order Comment: Specimen Type: BLOOD SPECIMENOrdering Facility: [facility] Address:[address] [place], [place] [address]Performed By: #### 31994-7 ####[facility] LABCLIA [id number] [address] LABCLIA [id number] [place] [address] [place] AMERICADifferential cell count method Nom (Bld)Manual [facility] on above:Order Comment: Specimen Type: BLOOD SPECIMENOrdering Facility: [facility] Address:[address] [place], [place] [address]Performed By: #### 32550-6 ####[facility] LABCLIA [id number] [address] LABCLIA [id number] [place] [address] [place] AMERICAEosinophils (Bld) [#/Vol]0.03 10*3/uLNormal<0.46 [facility] on above:Order Comment: Specimen Type: BLOOD SPECIMENOrdering Facility: [facility] Address:[address] [place], [place] [address]Performed By: #### 64439-0 ####[facility] LABCLIA [id number] [address] LABCLIA [id number] [place] [address] [place] AMERICAEosinophils/100 WBC (Bld)3.0 %[facility] on above:Order Comment: Specimen Type: BLOOD SPECIMENOrdering Facility: [facility] Address:[address] [place], [place] [address]Performed By: #### 57752-7 ####[facility] LABCLIA [id number] [place], [place] [address]POXIGGGQFADAMS COUNTY REG[facility]AL [facility] LABCLIA [id number] [address] [address] [place] OF AMERICAErythrocyte distribution width (RBC) [Ratio]14.8 %Ykqgzl93.5-15.0 [facility] on above:Order Comment: Specimen Type: BLOOD SPECIMENOrdering Facility: [facility] Address:[address] [place], [place] [address]Performed By: #### 22257-2 ####[facility] LABCLIA [id number] [address] LABCLIA [id number] [address], [facility]95 [place] OF AMERICAHematocrit (Bld) [Volume fraction]30.5 %Low36.0-46.0 [facility] on above:Order Comment: Specimen Type: BLOOD SPECIMENOrdering Facility: [facility] Address:[address] [place], [place] [address]Performed By: #### 75473-4 ####[facility] LABIA [id number] [place] [address] LABCLIA [id number] [address] [place] [address] [place] AMERICAHemoglobin (Bld) [Mass/Vol]9.6 g/dLLow11.5-15.5[facility] on above:Order Comment: Specimen Type: BLOOD SPECIMENOrdering Facility: [facility] Address:[address] [place], [place] [address]Performed By: #### 07518-1 ####[facility] LABCLIA [id number] [place] [address] LABCLIA [id number] [address] [place] [address] [place] AMERICALymphocytes (Bld) [#/Vol]0.46 10*3/uLLow1.00-4.00 [facility] CenterComment on above:Order Comment: Specimen Type: BLOOD SPECIMENOrdering Facility: [facility] Address:[address] [place], [place] [address]Performed By: #### 85421-9 ####[facility] LABCLIA [id number] [address] LABCLIA [id number] [place] [address] [place] AMERICALymphocytes/100 WBC (Bld)43.0 %NormalOhiohealth Grant Medical CenterComment on above:Order Comment: Specimen Type: BLOOD SPECIMENOrdering Facility: [facility] Address:[address] [place], [place] [address]Performed By: #### 80438-0 ####[facility] LABCLIA [id number] [address] LABCLIA [id number] [address] (RBC) [Entitic mass]29.4 txDbqmpi51.0-34.0[facility] Comment on above:Order Comment: Specimen Type: BLOOD SPECIMENOrdering Facility: [facility] Address:[address] [place] [address] Performed By: #### 43645-2 ####[facility] LABCLIA [id number] [address] LABCLIA [id number] [address] (RBC) [Mass/Vol]31.5 g/wRNzobvn87.5-36.0[facility] Comment on above:Order Comment: Specimen Type: BLOOD SPECIMENOrdering Facility: [facility] Address:[address] [place] [address] Performed By: #### 37226-5 ####[facility] LABCLIA [id number] [address] LABCLIA [id number] [place] [id number] [place] AMERICAMCV (RBC) [Entitic vol]93.3 xCYcfouf39.0-100.0[facility] Comment on above:Order Comment: Specimen Type: BLOOD SPECIMENOrdering Facility: [facility] Address:[address] [place] [address] Performed By: #### 80012-3 ####[facility] LABCLIA [id number] [address] LABCLIA [id number] [place] [address] [place] AMERICAMonocytes (Bld) [#/Vol]0.23 10*3/uLNormal<0.87[facility] Comment on above:Order Comment: Specimen Type: BLOOD SPECIMENOrdering Facility: [facility] Address:[address] [place] [address] Performed By: #### 23075-8 ####[facility] LABCLIA [id number] [address] LABCLIA [id number] [place] [id number] [place] AMERICAMonocytes/100 WBC (Bld)22.0 %NormalOhiohealth Grant Medical CenterComment on above:Order Comment: Specimen Type: BLOOD SPECIMENOrdering Facility: [facility] Address:[address] [place], [place] [address]Performed By: #### 69410-8 ####[facility] LABCLIA [id number] [address] LABCLIA [id number] [place] [id number] [place] AMERICANeutrophils (Bld) [#/Vol]0.32 10*3/uLLow1.45-7.50[facility] on above: Order Comment: Specimen Type: BLOOD SPECIMENOrdering Facility: [facility] Address:[address] [place], [place] [address]Performed By: #### 46968- 8 ####[facility] LABCLIA [id number] [address] LABCLIA [id number] [place] [address] [place] AMERICANeutrophils/100 WBC (Bld)30.0 %NormalAvita Health System on above:Order Comment: Specimen Type: BLOOD SPECIMENOrdering Facility: [facility] Address:[address] [place], [place] [address]Performed By: #### 62020-6 ####[facility] LABCLIA [id number] [address] LABCLIA [id number] [place] [address] [place] AMERICANucleated RBC (Bld) [#/Vol]10*3/uLNormal<0.01[facility] on above:Order Comment: Specimen Type: BLOOD SPECIMENOrdering Facility: [facility] Address:[address] [place], [place] [address]Performed By: #### 82706- 8 ####[facility] LABCLIA [id number] [address] LABCLIA [id number] [place] [id number] [place] AMERICANucleated RBC/100 WBC (Bld) [Ratio]0.0 /100 WBCNormalCS[facility]I [facility] on above:Order Comment: Specimen Type: BLOOD SPECIMENOrdering Facility: [facility] Address:[address] [place], [place] [address]Performed By: #### 74633-3 ####[facility] LABCLIA [id number] [facility]13109FNCPTPXOFADAMS [facility] LABCLIA [id number] [address] [place] [address] [place] AMERICAOvalocytes LM Ql (Bld)FewNormalClevelSampson Regional Medical CenterComment on above:Order Comment: Specimen Type: BLOOD SPECIMENOrdering Facility: [facility] Address:[address] [place], [place] [address]Performed By: #### 70802-6 ####[facility] LABCLIA [id number] [address] LABCLIA [id number] [address], [facility]95 [place] AMERICAPlatelet mean volume (Bld) [Entitic vol]10.2 fLNormal9.0-12.7ClevelSampson Regional Medical CenterComstraith hospital for special surgery on above:Order Comment: Specimen Type: BLOOD SPECIMENOrdering Facility: [facility] Address:[address] [place] [address] Performed By: #### 09094-8 ####[facility] LABCLIA [id number] [place] [address] LABCLIA [id number] [address] [place] [address] [place] AMERICAPlatelets (Bld) [#/Vol]260 10*3/zTTrlygf662-389LowyvahqaOhiohealth Grant Medical Center Comment on above:Order Comment: Specimen Type: BLOOD SPECIMENOrdering Facility: [facility] Address:[address] [place] [address] Performed By: #### 58078-8 ####[facility] LABCLIA [id number] [place] [id number] LABCLIA [id number] [address] [place] [address] [place] AMERICAPlatelets Estimate (Bld) [#/Vol]AdequateNormalCleveland Clinic De La Fuente Comment on above:Order Comment: Specimen Type: BLOOD SPECIMENOrdering Facility: [facility] Address:[address] [place] [address] Performed By: #### 66060-0 ####[facility] LABCLIA [id number] [place] [address] LABCLIA [id number] [place] [address] [facility] AMERICARBC (Bld) [#/Vol]3.27 10*6/uLLow3.90-5.20[facility] Comment on above:Order Comment: Specimen Type: BLOOD SPECIMENOrdering Facility: [facility] Address:[address] [place] [address] Performed By: #### 01957-9 ####[facility] LABCLIA [id number] [address] LABCLIA [id number] [place] [address] [place] AMERICARED CELL MORPHReviewed: see results of individual morphologiesParkland Health Centeral [facility] on above:Order Comment: Specimen Type: BLOOD SPECIMENOrdering Facility: [facility] Address:[address] [place], [place] [address]Performed By: #### 93757-9 ####[facility] LABCLIA [id number] [address] LABCLIA [id number] [place] [id number] [place] AMERICAWBC (Bld) [#/Vol]1.06 10*3/uLLow3.70-11.00[facility] on above:Order Comment: Specimen Type: BLOOD SPECIMENOrdering Facility: [facility] Address:[address] [place], [place] [address]Result Comment: Results checked and verified.No clot detected.Performed By: #### 64369-6 ####[facility] LABCLIA [id number] [facility] HOSPITALLUZ ELLIOTTTUBA CITY REGIONAL HEALTH CARE CORPORATIONLLUVIA, [place] [address]LCOPJRGZAADAMS COUNTY [facility] LABCLIA [id number] [facility] [address]53DYFGRDTGH, [place] [address] [place] AMERICACNOVSPon 43-53-1101WAFQCZEtdjmoOvqwqhrar Clinic ClevelandCNPNon 02-85-7880GLXGOmsxxbPsxyvdfza Clinic ClevelandComprehensive metabolic 2000 panelon 19-71-8068Balrmqj [Mass/Vol]3.1 g/dLLow3.9-4.9CSuburban [facility] Comment on above:Order Comment: Specimen Type: BLOOD SPECIMENOrdering Facility: [facility] Address:[address] [place] [address] Performed By: #### 34015-1 ####[facility] LABCLIA [id number] [place], [place] [address]AYG [Catalytic activity/Vol]114 U/LPziiwc70-379CbgpuauzjOhiohealth Grant Medical CenterComstraith hospital for special surgery on above:Order Comment: Specimen Type: BLOOD SPECIMENOrdering Facility: [facility] Address:[address] [place], [place] [address]Performed By: #### 42597-7 ####[facility]NE[facility] LABCLIA [id number] [place] [address]UVR [Catalytic activity/Vol]20 U/LNormal7-38[facility] Medical CenterComment on above:Order Comment: Specimen Type: BLOOD SPECIMENOrdering Facility: [facility] Address:[address] [place], [place] [address]Performed By: #### 47682-4 ####[facility] LABCLIA [id number] [facility] HOSPITALLUZ ELLIOTTTUBA CITY REGIONAL HEALTH CARE CORPORATIONKASEYCENTER POINT, [place] [address]Chcsy gap [Moles/Vol]14 mmol/LNormal8-15[facility] on above:Order Comment: Specimen Type: BLOOD SPECIMENOrdering Facility: [facility] Address:[address] [place], [place] [address]Performed By: #### 68923- 8 ####[facility]NEOSEAS [facility] LABCLIA [id number] [facility], [place] [address]JQA [Catalytic activity/Vol]14 U/SCddpua81-06ZguitjbakAvita Health System on above:Order Comment: Specimen Type: BLOOD SPECIMENOrdering Facility: [facility] Address:[address] [place], [place] [address]Performed By: #### 00602-8 ####[facility] LABCLIA [id number] [place], [place] [address]Tymopyyae [Mass/Vol]0.4 mg/dLNormal0.2-1.3[facility] on above:Order Comment: Specimen Type: BLOOD SPECIMENOrdering Facility: [facility] Address:[address] [place], [place] [address]Performed By: #### 55549- 8 ####[facility] LABCLIA [id number] [facility], [place] [address]Ynawrjr [Mass/Vol]8.7 mg/dLNormal8.5-10.2[facility] on above:Order Comment: Specimen Type: BLOOD SPECIMENOrdering Facility: [facility] Address:[address] [place], [place] [address]Performed By: #### 26434-4 ####[facility] LABCLIA [id number] [place], [place] [address]Lgbogdbq [Moles/Vol]97 mmol/L Ysc53-581UacxctavdAvita Health System on above:Order Comment: Specimen Type: BLOOD SPECIMENOrdering Facility: [facility] Address:[address] [place], [place] [address]Performed By: #### 57953-5 ####[facility] LABCLIA [id number] [place] [address] CO2 [Moles/Vol]26 mmol/WIdksea15-32HuamnqsduAvita Health System on above: Order Comment: Specimen Type: BLOOD SPECIMENOrdering Facility: [facility] Address:[facility] [place] [address]Alqrgnnie By: #### 41206- 8 ####[facility] LABCLIA [id number] [place], [place] [address]Xjzwdksygm [Mass/Vol]0.58 mg/dLNormal0.58-0.96[facility] on above:Order Comment: Specimen Type: BLOOD SPECIMENOrdering Facility: [facility] Address:[address] [place], [place] [address]Performed By: #### 73217-3 ####[facility] LABCLIA [id number] [place], [place] [address]bYRTck SerPlBld CKD-EPI 939538 mL/min/1.73m???Normal>=60[facility] on above:Order Comment: Specimen Type: BLOOD SPECIMENOrdering Facility: [facility] Address:[address] [place], [place] [address]Result Comment: Estimated Glomerular Filtration Rate (eGFR) is [...] not accurately reflect actual GFR.Performed By: #### 89043-6 ####[facility] LABCLIA [id number] [place], [place] [address]Bioedlp [Mass/Vol]124 mg/gZGwnv65-14XdjorsodzAvita Health System on above:Order Comment: Specimen Type: BLOOD SPECIMENOrdering Facility: [facility] Address:[address] [place], [place] [address]Result Comment: The P[place]de[place] Diabetes Association (ADA) provides guidance for cutoff [...] Standards of Medical Care in Diabetes 2016, Prydeinig Diabetes Association. Diabetes Care. 2016.39(Suppl 1).Performed By: #### 51530-1 ####[facility] LABCLIA [id number] [place], [place] [address]Fvkvmvptx [Moles/Vol]4.1 mmol/LNormal3.7-5.1[facility] on above:Order Comment: Specimen Type: BLOOD SPECIMENOrdering Facility: [facility] Address:[address] [place], [place] [address]Performed By: #### 32830-7 ####[facility] LABCLIA [id number] [place], [place] [address]Ncftrcd [Mass/Vol]6.2 g/dLLow6.3-8.0[facility] on above:Order Comment: Specimen Type: BLOOD SPECIMENOrdering Facility: [facility] Address:[address] [place], [place] [address]Performed By: #### 33255- 8 ####[facility] LABCLIA [id number] [place], [place] [address]Lkpxyv [Moles/Vol]137 mmol/JOjlncz438-728XosphlztqAvita Health System on above:Order Comment: Specimen Type: BLOOD SPECIMENOrdering Facility: [facility] Address:[address] [place], [place] [address]Performed By: #### 32036-6 ####[facility] LABIA [id number] [place], [place] [address]Peus nitrogen [Mass/Vol]16 mg/dLNormal7-21[facility] on above:Order Comment: Specimen Type: BLOOD SPECIMENOrdering Facility: [facility] Address:[address] [place], [place] [address]Performed By: #### 69100-0 ####[facility] LABCLIA [id number] [place], [place] [address]OLM W Auto Differential panel (Bld)on [id number] (Bld) [#/Vol]10*3/uLNormal<0.11[facility] on above:Order Comment: Specimen Type: BLOOD SPECIMENOrdering Facility: [facility] Address:[address] [place], [place] [address]Performed By: #### [id number]- 8 ####[facility] LABCLIA [id number] [place], [place] [address]Miexjyddo/100 WBC (Bld)0.1 %NormalAv[facility] Health [facility] on above:Order Comment: Specimen Type: BLOOD SPECIMENOrdering Facility: [facility] Address:[address] [place], [place] [address]Performed By: #### 53570-3 ####[facility] LABCLIA [id number] [place], [place] [address]Pdvjyrufsxar cell count method Nom (Bld)AutoNormalCSCCI [facility] on above:Order Comment: Specimen Type: BLOOD SPECIMENOrdering Facility: [facility] Address:[address] [place], [place] [address]Performed By: #### 24346-3 ####[facility] LABCLIA [id number] [place], [place] [address]Rozxsheyuhh (Bld) [#/Vol]10*3/uLNormal<0.46[facility] on above:Order Comment: Specimen Type: BLOOD SPECIMENOrdering Facility: [facility] Address:[address] [place], [place] [address]Performed By: #### 13721-2 ####[facility] LABIA [id number] [place], [place] [address]Ucxevgdfxea/100 WBC (Bld)0.0 %NormalAv[facility] Health System on above:Order Comment: Specimen Type: BLOOD SPECIMENOrdering Facility: [facility] Address:[address] [place], [place] [address]Performed By: #### 54154-1 ####[facility] LABCLIA [id number] [place], [place] [address]Qgosbhidwwo distribution width (RBC) [Ratio]14.8 %Normal 11.5-15.0[facility] on above:Order Comment: Specimen Type: BLOOD SPECIMENOrdering Facility: [facility] Address:[address] [place], [place] [address]Performed By: #### 01343-8 ####[facility] LABCLIA [id number] [place] [address] Hematocrit (Bld) [Volume fraction]33.0 %Low36.0-46.0[facility] Comment on above:Order Comment: Specimen Type: BLOOD SPECIMENOrdering Facility: [facility] Address:[address] [place] [address] Performed By: #### 19041-6 ####[facility] LABCLIA [id number] [place], [place] [address]Drcdydbigs (Bld) [Mass/Vol]10.0 g/dLLow11.5-15.5[facility] on above:Order Comment: Specimen Type: BLOOD SPECIMENOrdering Facility: [facility] Address:[address] [place], [place] [address]Performed By: #### 70002-9 ####[facility] LABIA [id number] [place], [place] [address]Lfcszwct granulocytes (Bld) [#/Vol]0.15 10*3/uLHigh<0.10 [facility] on above:Order Comment: Specimen Type: BLOOD SPECIMENOrdering Facility: [facility] Address:[address] [place], [place] [address]Performed By: #### 58289-8 ####[facility] LABCLIA [id number] [place], [place] [address]Dvpoydvl granulocytes/100 WBC (Bld)1.1 %NormalAvita Health System on above: Order Comment: Specimen Type: BLOOD SPECIMENOrdering Facility: [facility] Address:[address] [place], [place] [address]Performed By: #### 44706- 8 ####[facility] LABCLIA [id number] [place], [place] [address]Gahmywnhndk (Bld) [#/Vol]0.53 10*3/uLLow1.00-4.00 [facility] on above:Order Comment: Specimen Type: BLOOD SPECIMENOrdering Facility: [facility] Address:[address] [place], [place] [address]Performed By: #### 98829-3 ####[facility] LABIA [id number] [place], [place] [address]Nolyczexais/100 WBC (Bld)3.7 %NormalAvita Health System on above:Order Comment: Specimen Type: BLOOD SPECIMENOrdering Facility: [facility] Address:[address] [place], [place] [address]Performed By: #### 45280-2 ####[facility] LABCLIA [id number] [place], [place] [address]DHI (RBC) [Entitic mass]29.2 aeHepjql89.0-34.0[facility] on above:Order Comment: Specimen Type: BLOOD SPECIMENOrdering Facility: [facility] Address:[address] [place], [place] [address]Performed By: #### 30179-6 ####[facility] LABIA [id number] [place], [place] [address]THLY (RBC) [Mass/Vol]30.3 g/dLLow30.5-36.0[facility] on above:Order Comment: Specimen Type: BLOOD SPECIMENOrdering Facility: [facility] Address:[address] [place], [place] [address]Performed By: #### 88462- 8 ####[facility] LABCLIA [id number] [place], [place] [address]UWG (RBC) [Entitic vol]96.2 qHPswrqt47.0-100.0[facility] on above:Order Comment: Specimen Type: BLOOD SPECIMENOrdering Facility: [facility] Address:[address] [place], [place] [address]Performed By: #### 26708-2 ####[facility] LABCLIA [id number] [place], [place] [address]Vzdpddxkx (Bld) [#/Vol]0.31 10*3/uLNormal<0.87[facility] on above:Order Comment: Specimen Type: BLOOD SPECIMENOrdering Facility: [facility] Address:[address] [place], [place] [address]Performed By: #### 22592- 8 ####[facility] LABCLIA [id number] [place], [place] [address]Amnjlsgdj/100 WBC (Bld)2.2 %NormalAvita Health System on above:Order Comment: Specimen Type: BLOOD SPECIMENOrdering Facility: [facility] Address:[address] [place], [place] [address]Performed By: #### 12206-8 ####[facility] LABCLIA [id number] [place], [place] [address]Etuirgacsfe (Bld) [#/Vol]13.13 10*3/uLHigh1.45-7.50[facility] on above:Order Comment: Specimen Type: BLOOD SPECIMENOrdering Facility: [facility] Address:[address] [place], [place] [address]Performed By: #### 84732-1 ####[facility] LABCLIA [id number] [place], [place] [address]Tfcjanqirxx/100 WBC (Bld)92.9 %NormalAvita Health System on above:Order Comment: Specimen Type: BLOOD SPECIMENOrdering Facility: [facility] Address:[address] [place], [place] [address]Performed By: #### 11455-6 ####[facility] LABCLIA [id number] [place], [place] [address]Qsaufaxbl RBC (Bld) [#/Vol] 10*3/uLNormal<0.01[facility] on above:Order Comment: Specimen Type: BLOOD SPECIMENOrdering Facility: [facility] Address:[address] [place], [place] [address]Performed By: #### 43602-7 ####[facility] LABIA [id number] [place], [place] [address]Binnmnxsn RBC/100 WBC (Bld) [Ratio]0.0 /100 WBCNormal [facility] on above:Order Comment: Specimen Type: BLOOD SPECIMENOrdering Facility: [facility] Address:[address] [place], [place] [address]Performed By: #### 00453-1 ####[facility] LABIA [id number] [place], [place] [address]Bpnklobv mean volume (Bld) [Entitic vol]9.5 fLNormal9.0-12.7[facility] on above:Order Comment: Specimen Type: BLOOD SPECIMENOrdering Facility: [facility] Address:[address] [place] [address] Performed By: #### 89258-3 ####[facility] LABIA [id number] [place], [place] [address]Mdgutolea (Bld) [#/Vol]490 10*3/fRQjwm358-253NfyhukkrbAvita Health System on above:Order Comment: Specimen Type: BLOOD SPECIMENOrdering Facility: [facility] Address:[address] [place], [place] [address]Performed By: #### 68708-3 ####[facility] LABCLIA [id number] [facility] [place], [place] [address]GJK (Bld) [#/Vol]3.43 10*6/uLLow3.90-5.20[facility] on above:Order Comment: Specimen Type: BLOOD SPECIMENOrdering Facility: [facility] Address:[address] [place], [place] [address]Performed By: #### 23937-6 ####[facility] LABCLIA [id number] [place], [place] [address]FOK (Bld) [#/Vol]14.14 10*3/uL High3.70-11.00[facility] on above:Order Comment: Specimen Type: BLOOD SPECIMENOrdering Facility: [facility] Address:[address] [place], [place] [address]Performed By: #### 27107-6 ####[facility] LABIA [id number] [place] [address] CNOVon 28-92-0798ESRIZnifdiYmpphuopk Clinic ClevelandCNOVSPon 46-93-7269NIOSTY NormalOhiohealth Grant Medical CenterComprehensive metabolic 2000 panelon 04-18-2025 Albumin [Mass/Vol]3.5 g/dLLow3.9-4.9[facility] on above: Order Comment: Specimen Type: BLOOD SPECIMENOrdering Facility: [facility] Address:[address] [place], [place] [address]Performed By: #### 25143- 8 ####[facility] LABCLIA [id number] [place], [place] [address]WHY [Catalytic activity/Vol]178 U/HQoon31-018FaoqmkpgxAvita Health System on above:Order Comment: Specimen Type: BLOOD SPECIMENOrdering Facility: [facility] Address:[address] [place], [place] [address]Performed By: #### 41887-2 ####[facility] LABCLIA [id number] [facility] [address]SMS [Catalytic activity/Vol]24 U/LNormal7-38[facility] on above:Order Comment: Specimen Type: BLOOD SPECIMENOrdering Facility: [facility] Address:[address] [place], [place] [address]Performed By: #### 37582- 8 ####[facility] LABCLIA [id number] [place], [place] [address]Dhrmp gap [Moles/Vol]17 mmol/LHigh8-15[facility] on above:Order Comment: Specimen Type: BLOOD SPECIMENOrdering Facility: [facility] Address:[address] [place], [place] [address]Performed By: #### 01735-4 ####[facility] LABCLIA [id number] [facility], [place] [address]EHT [Catalytic activity/Vol]13 U/RGsuefx92-94OjswfaatlAvita Health System on above:Order Comment: Specimen Type: BLOOD SPECIMENOrdering Facility: [facility] Address:[address] [place], [place] [address]Performed By: #### 30841-1 ####[facility] LABCLIA [id number] [facility] [address] Bilirubin [Mass/Vol]0.3 mg/dLNormal0.2-1.3[facility] on above:Order Comment: Specimen Type: BLOOD SPECIMENOrdering Facility: [facility] Address:[address] [place], [place] [address]Performed By: #### 40852-0 ####[facility] LABCLIA [id number] [place], [place] [address]Wpdkafb [Mass/Vol]9.9 mg/dLNormal8.5-10.2[facility] on above:Order Comment: Specimen Type: BLOOD SPECIMENOrdering Facility: [facility] Address:[address] [place], [place] [address]Performed By: #### 29602-6 ####[facility] LABCLIA [id number] [place], [place] [address]Gjylsenr [Moles/Vol]100 mmol/KXqzwgc57-333LroeiqkatAvita Health System on above: Order Comment: Specimen Type: BLOOD SPECIMENOrdering Facility: [facility] Address:[address] [place], [place] [address]Performed By: #### 67908- 8 ####[facility] LABCLIA [id number] [place], [place] [address]GH3 [Moles/Vol]24 mmol/JZjyahf14-66JszcrzolkAvita Health System on above:Order Comment: Specimen Type: BLOOD SPECIMENOrdering Facility: [facility] Address:[address] [place], [place] [address]Performed By: #### 90852-3 ####[facility] LABCLIA [id number] [place], [place] [address]Xpfnssetda [Mass/Vol]0.47 mg/dL Low0.58-0.96[facility] on above:Order Comment: Specimen Type: BLOOD SPECIMENOrdering Facility: [facility] Address:[address] [place], [place] [address]Performed By: #### 95175-0 ####[facility] LABCLIA [id number] [place] [address] eGFRcr SerPlBld CKD-EPI 0224901 mL/min/1.73m???Normal>=60[facility] on above:Order Comment: Specimen Type: BLOOD SPECIMENOrdering Facility: [facility] Address:[address], [place], [place] [address]Fjwlms Comment: Estimated Glomerular Filtration Rate (eGFR) is [...] accurately reflect actual GFR. Performed By: #### 13917-4 ####[facility] LABCLIA [id number] [place], [place] [address]Rdvdkve [Mass/Vol]148 mg/dLHigh 74-99[facility] on above:Order Comment: Specimen Type: BLOOD SPECIMENOrdering Facility: [facility] Address:[address] [place], [place] [id number] Comment: The [place] Diabetes Association (ADA) provides guidance for cutoff [...] Standards of Medical Care in Diabetes 2016, [place] Diabetes Association. Diabetes Care. 2016.39(Suppl 1).Performed By: #### 06678-4 ####[facility] LABCLIA [id number] [place], [place] [address]Rlptursbu [Moles/Vol]3.9 mmol/LNormal3.7-5.1[facility] on above:Order Comment: Specimen Type: BLOOD SPECIMENOrdering Facility: [facility] Address:[address] [place] [address]Aobnempxa By: #### 67167-8 ####[facility] LABCLIA [id number] [place], [place] [address]Wrvcrgi [Mass/Vol]7.3 g/dLNormal6.3-8.0[facility] on above:Order Comment: Specimen Type: BLOOD SPECIMENOrdering Facility: [facility] Address:[address] [place], [place] [address]Performed By: #### 52886- 8 ####[facility] LABCLIA [id number] [place], [place] [address]Axaiiw [Moles/Vol]141 mmol/UIpwueo450-225ZcdkrhotoAvita Health System on above:Order Comment: Specimen Type: BLOOD SPECIMENOrdering Facility: [facility] Address:[address] [place], [place] [address]Performed By: #### 29643-3 ####[facility] LABCLIA [id number] [place], [place] [address]Klrg nitrogen [Mass/Vol]21 mg/dLNormal7-21[facility] on above:Order Comment: Specimen Type: BLOOD SPECIMENOrdering Facility: [facility] Address:[address] [place], [place] [address]Performed By: #### 99331-7 ####[facility] LABCLIA [id number] [place], [place] [address]XJDVPJGDDO - BASELINE AND POST DILATORon 04-18-2025 SPIROMETRY - BASELINE AND POST DILATORNormalCSuburban Community Hospital & Brentwood HospitalCNCNPATED on 78-80-4140VQOBFKYKGLvotjrWwgjdntlr Clinic ClevelandCNPNon 97-20-6672HUPC NormalOhiohealth Grant Medical CenterCB W Auto Differential panel (Bld)on 04-12-2025 Basophils (Bld) [#/Vol]0.04 10*3/uLNormal<0.11[facility] on above:Order Comment: Specimen Type: BLOOD SPECIMENOrdering Facility: [facility] Address:[address] [place] [address] Performed By: #### 22409-0 ####[facility] LABCLIA [id number] [place], [place] [address]Luxkrtkkr/100 WBC (Bld)0.5 % NormalAvita Health System on above:Order Comment: Specimen Type: BLOOD SPECIMENOrdering Facility: [facility] Address:[address] [place], [place] [address]Performed By: #### 34531-5 ####[facility] LABCLIA [id number] [place] [address] Differential cell count method Nom (Bld)AutoNormalClevelSampson Regional Medical Center Comment on above:Order Comment: Specimen Type: BLOOD SPECIMENOrdering Facility: [facility] Address:[address] [place] [address] Performed By: #### 77142-0 ####[facility] LABIA [id number] [place], [place] [address]Jrdhxlkmjdn (Bld) [#/Vol]0.23 10*3/uLNormal<0.46[facility] on above:Order Comment: Specimen Type: BLOOD SPECIMENOrdering Facility: [facility] Address:[address] [place], [place] [address]Performed By: #### 14525-1 ####[facility] LABCLIA [id number] [place], [place] [address]Vdhvuynbgxx/100 WBC (Bld)2.7 %NormalAvita Health System on above:Order Comment: Specimen Type: BLOOD SPECIMENOrdering Facility: [facility] Address:[address] [place], [place] [address]Performed By: #### 25070-6 ####[facility] LABIA [id number] [place], [place] [address]Vddlgaedbou distribution width (RBC) [Ratio]14.6 %Zikwyw60.5-15.0[facility] on above: Order Comment: Specimen Type: BLOOD SPECIMENOrdering Facility: [facility] Address:[address] [place], [place] [address]Performed By: #### 95423- 8 ####[facility] LABCLIA [id number] [place], [place] [address]Bhxxhcpedn (Bld) [Volume fraction]31.7 %Low36.0-46.0 [facility] on above:Order Comment: Specimen Type: BLOOD SPECIMENOrdering Facility: [facility] Address:[address] [place], [place] [address]Performed By: #### 34195-0 ####[facility] LABCLIA [id number] [place], [place] [address]Tmngdryrdr (Bld) [Mass/Vol]9.7 g/dLLow11.5-15.5[facility] on above:Order Comment: Specimen Type: BLOOD SPECIMENOrdering Facility: [facility] Address:[address] [place], [place] [address]Performed By: #### 41332- 8 ####[facility] LABCLIA [id number] [place], [place] [address]Kuegvspl granulocytes (Bld) [#/Vol]0.03 10*3/uLNormal <0.10[facility] on above:Order Comment: Specimen Type: BLOOD SPECIMENOrdering Facility: [facility] Address:[address] [place], [place] [address]Performed By: #### 39143-7 ####[facility] LABCLIA [id number] [place], [place] [address]Foyrwvfm granulocytes/100 WBC (Bld)0.4 %NormalAv[facility] Health [facility] on above: Order Comment: Specimen Type: BLOOD SPECIMENOrdering Facility: [facility] Address:[address] [place], [place] [address]Performed By: #### 52013- 8 ####[facility] LABCLIA [id number] [place], [place] [address]Gkblylwfnxh (Bld) [#/Vol]0.66 10*3/uLLow1.00-4.00 [facility] on above:Order Comment: Specimen Type: BLOOD SPECIMENOrdering Facility: [facility] Address:[address] [place], [place] [address]Performed By: #### 23172-6 ####[facility] LABCLIA [id number] [place], [place] [address]Dnstypueukg/100 WBC (Bld)7.8 %NormalAvita Health System on above:Order Comment: Specimen Type: BLOOD SPECIMENOrdering Facility: [facility] Address:[address] [place], [place] [address]Performed By: #### 75517-5 ####[facility] LABCLIA [id number] [place], [place] [address]SCN (RBC) [Entitic mass]29.6 rxQkawpl14.0-34.0[facility] on above:Order Comment: Specimen Type: BLOOD SPECIMENOrdering Facility: [facility] Address:[address] [place], [place] [address]Performed By: #### 21507-5 ####[facility] LABCLIA [id number] [place], [place] [address]IPLD (RBC) [Mass/Vol]30.6 g/nSQewfhv92.5-36.0[facility] on above: Order Comment: Specimen Type: BLOOD SPECIMENOrdering Facility: [facility] Address:[address] [place], [place] [address]Performed By: #### 69238- 8 ####[facility] LABCLIA [id number] [place], [place] [address]DGB (RBC) [Entitic vol]96.6 jBGwmfyz48.0-100.0[facility] on above:Order Comment: Specimen Type: BLOOD SPECIMENOrdering Facility: [facility] Address:[address] [place], [place] [address]Performed By: #### 55428-4 ####[facility] LABCLIA [id number] [place], [place] [address]Zvgrffoxf (Bld) [#/Vol]0.71 10*3/uLNormal<0.87[facility] on above:Order Comment: Specimen Type: BLOOD SPECIMENOrdering Facility: [facility] Address:[address] [place], [place] [address]Performed By: #### 56889- 8 ####[facility] LABCLIA [id number] [place], [place] [address]Idwrnvqil/100 WBC (Bld)8.4 %NormalAvita Health System on above:Order Comment: Specimen Type: BLOOD SPECIMENOrdering Facility: [facility] Address:[address] [place], [place] [address]Performed By: #### 75053-3 ####[facility] LABCLIA [id number] [place], [place] [address]Outcvvypqzc (Bld) [#/Vol]6.78 10*3/uLNormal1.45-7.50[facility] on above:Order Comment: Specimen Type: BLOOD SPECIMENOrdering Facility: [facility] Address:[address] [place], [place] [address]Performed By: #### 36171-1 ####[facility] LABCLIA [id number] [place], [place] [address]Aueitevoova/100 WBC (Bld)80.2 %NormalAvita Health System on above:Order Comment: Specimen Type: BLOOD SPECIMENOrdering Facility: [facility] Address:[address] [place], [place] [address]Performed By: #### 92123-9 ####[facility] LABCLIA [id number] [place], [place] [address]Hfuwqebbz RBC (Bld) [#/Vol] 10*3/uLNormal<0.01[facility] on above:Order Comment: Specimen Type: BLOOD SPECIMENOrdering Facility: [facility] Address:[address] [place], [place] [address]Performed By: #### 31752-0 ####[facility] LABCLIA [id number] [place], [place] [address]Bhnxycypx RBC/100 WBC (Bld) [Ratio]0.0 /100 WBCNormal [facility] on above:Order Comment: Specimen Type: BLOOD SPECIMENOrdering Facility: [facility] Address:[address] [place], [place] [address]Performed By: #### 23032-8 ####[facility] LABCLIA [id number] [place], [place] [address]Sidgudmi mean volume (Bld) [Entitic vol]9.1 fLNormal9.0-12.7[facility] on above:Order Comment: Specimen Type: BLOOD SPECIMENOrdering Facility: [facility] Address:[address] [place] [address] Performed By: #### 71165-9 ####[facility] LABCLIA [id number] [place], [place] [address]Xuwbtttua (Bld) [#/Vol]392 10*3/oDCyfsis791-191VmaayvfegAvita Health System on above:Order Comment: Specimen Type: BLOOD SPECIMENOrdering Facility: [facility] Address:[address] [place], [place] [address]Performed By: #### 63286-5 ####[facility] LABCLIA [id number] [place], [place] [address]RIL (Bld) [#/Vol]3.28 10*6/uLLow3.90-5.20[facility] on above:Order Comment: Specimen Type: BLOOD SPECIMENOrdering Facility: [facility] Address:[address] [place], [place] [address]Performed By: #### 41220-8 ####[facility] LABCLIA [id number] [place], [place] [address]BGD (Bld) [#/Vol]8.45 10*3/uL Normal3.70-11.00[facility] on above:Order Comment: Specimen Type: BLOOD SPECIMENOrdering Facility: [facility] Address:[address] [place], [place] [address]Performed By: #### 67000-6 ####[facility] LABCL[facility] [id number] [place], [place] [address]QAYZTWxe 66-20-0569OYYGVMHacxbtEfbrebkyk [facility] [place] CNPNon 99-74-9811EJRTRxkbcqDydvvffhm Clinic ClevelandComprehensive metabolic 2000 panelon 33-87-8604Bwaxieo [Mass/Vol]3.5 g/dLLow3.9-4.9[facility] on above:Order Comment: Specimen Type: BLOOD SPECIMENOrdering Facility: [facility] Address:[address] [place], [place] [address]Performed By: #### 45430-3, 89540-7 ####[facility] LABCLIA [id number] [place], [place] [address]PHG [Catalytic activity/Vol]249 U/RGkzg18-650AbmtvgikzAvita Health [facility] on above:Order Comment: Specimen Type: BLOOD SPECIMENOrdering Facility: [facility] Address:[address] [place], [place] [address]Performed By: #### 01144- 9, 34985-5 ####[facility] LABCLIA [id number] [place], [place] [address]ZBF [Catalytic activity/Vol]44 U/LHigh7-38[facility] on above:Order Comment: Specimen Type: BLOOD SPECIMENOrdering Facility: [facility] Address:[address] [place], [place] [address]Performed By: #### 23879-0, 78878-6 ####[facility] LABCLIA [id number] [place], [place] [address]Jsjfc gap [Moles/Vol]14 mmol/LNormal8-15[facility] on above: Order Comment: Specimen Type: BLOOD SPECIMENOrdering Facility: [facility] Address:[address] [place], [place] [address]Performed By: #### 05514- 9, 59971-3 ####[facility] LABCLIA [id number] [place], [place] [address]VGG [Catalytic activity/Vol]31 U/FRestct51-42 [facility] on above:Order Comment: Specimen Type: BLOOD SPECIMENOrdering Facility: [facility] Address:[address] [place], [place] [address]Performed By: #### 18861-9, 92310-0 ####[facility] LABCLIA [id number] [place] [address] Bilirubin [Mass/Vol]0.4 mg/dLNormal0.2-1.3[facility] on above:Order Comment: Specimen Type: BLOOD SPECIMENOrdering Facility: [facility] Address:[address] [place], [place] [address]Performed By: #### 97287-9, 95318-1 ####[facility] LABCLIA [id number] [place], [place] [address]Ohmmzcj [Mass/Vol]9.1 mg/dLNormal8.5-10.2 [facility] on above:Order Comment: Specimen Type: BLOOD SPECIMENOrdering Facility: [facility] Address:[address] [place], [place] [address]Performed By: #### 23072-8, 44640-3 ####[facility] LABCLIA [id number] [place], [place] [address]Syzbuaak [Moles/Vol]98 mmol/WHnvwng88-473LyxrfgdclAvita Health System on above: Order Comment: Specimen Type: BLOOD SPECIMENOrdering Facility: [facility] [facility] Address:[address] [place] [address] 270[address]Prmpyggix By: #### 83343- 9, 51057-4 ####[facility] LABCLIA [id number] [place], [place] [address]FP5 [Moles/Vol]28 mmol/NOyrlsm75-65GtdhupdkwAvita Health System on above:Order Comment: Specimen Type: BLOOD SPECIMENOrdering Facility: [facility] Address:[address] [place] [address] 86656Outluzekx By: #### 51070-1, 03182-2 ####[facility] LABIA [id number] [place], [place] [address]Jeaclguojv [Mass/Vol] 0.55 mg/dLLow0.58-0.96[facility] on above:Order Comment: Specimen Type: BLOOD SPECIMENOrdering Facility: [facility] Address:[address] [place], [place] [address]Performed By: #### 52393-9, 55778-5 ####[facility] LABIA [id number] [place], [place] [address]zKORtd SerPlBld CKD-EPI 6829168 mL/min/1.73m???Normal>=60 [facility] on above:Order Comment: Specimen Type: BLOOD SPECIMENOrdering Facility: [facility] Address:[address] [place] [address]Zvhgrh Comment: Estimated Glomerular Filtration Rate (eGFR) is calculated using the 2020 CKD-EPI creatinine equation. This equation utilizes serum creatinine, sex, and age as parameters. The creatinine assay has traceable calibration to isotope dilution-mass spectrometry. Refer to KDIGO guidelines for clinical interpretation. In patients with unstable renal function, e.g. those with acute kidney injury, the eGFR may not accurately reflect actual GFR.Performed By: #### 49976-7, 99509-8 ####[facility] LABCLIA [id number] [place], [place] [address]Rqbdivo [Mass/Vol]114 mg/aSVtjv20-98GywzqnljdAvita Health System on above:Order Comment: Specimen Type: BLOOD SPECIMENOrdering Facility: [facility] Address:[address] [place], [place] [address]Result Comment: The Prydein[place] Diabetes Association (ADA) provides guidance for cutoff [...] Standards of Medical Care in Diabetes 2016, Prydein[place] Diabetes Association. Diabetes Care. 2016.39(Suppl 1).Performed By: #### 69966-4, 95802-8 ####[facility] LABCLIA [id number] [place] [address] Potassium [Moles/Vol]3.2 mmol/LLow3.7-5.1[facility] on above:Order Comment: Specimen Type: BLOOD SPECIMENOrdering Facility: [facility] Address:[address] [place], [place] [address]Performed By: #### 52922-2, 35910-6 ####[facility] LABCLIA [id number] [place], [place] [address]Zvazfzz [Mass/Vol]6.9 g/dLNormal6.3-8.0 [facility] on above:Order Comment: Specimen Type: BLOOD SPECIMENOrdering Facility: [facility] Address:[address] [place], [place] [address]Performed By: #### 39381-8, 86313-0 ####[facility] LABCLIA [id number] [place], [place] [address]Noypmy [Moles/Vol]140 mmol/PTsbkgj415-945CbcpheihbAvita Health System on above: Order Comment: Specimen Type: BLOOD SPECIMENOrdering Facility: [facility] Address:[address] [place], [place] [address]Performed By: #### 88532- 9, 28130-0 ####[facility] LABCLIA [id number] [place], [place] [address]Uxvy nitrogen [Mass/Vol]13 mg/dLNormal7-21[facility] on above:Order Comment: Specimen Type: BLOOD SPECIMENOrdering Facility: [facility] Address:[address] [place], [place] [address]Performed By: #### 83504-6, 25891-3 ####[facility] LABCLIA [id number] [place] [address] Magnesium SerPl-mCncon 80-35-6001Eexpglujm [Mass/Vol]1.8 mg/dLNormal1.7-2.3 [facility] on above:Order Comment: Specimen Type: BLOOD SPECIMENOrdering Facility: [facility] Address:[address] [place], [place] [address]Performed By: #### 97825-6, 22369-6 ####[facility] LABCLIA [id number] [place], [place] [address]FZS SerPl-aCncon 64-05-6834VJS Qn4.110 m[IU]/LNormal0.270-4.200[facility] on above:Order Comment: Specimen Type: BLOOD SPECIMENOrdering Facility: [facility] Address:[address] [place], [place] [address]Performed By: #### 3016-3 ####[facility] LABCLIA [id number] [place] [id number] [place] NM PET/CT SKULL-THIGH SUBQon 40-26-0046JB PET/CT SKULL-THIGH SUBQNormalCAvita Health System [facility] W Auto Differential panel (Bld)on 82-87-5252Sedkpkaup (Bld) [#/Vol]0.04 10*3/uLNormal<0.11[facility] on above:Order Comment: Specimen Type: BLOOD SPECIMENOrdering Facility: [facility] Address:[address] [place], [place] [address]Performed By: #### 82933- 8 ####[facility] LABCLIA [id number] [place], [place] [address]Oivfauaya/100 WBC (Bld)0.5 %NormalAvita Health System on above:Order Comment: Specimen Type: BLOOD SPECIMENOrdering Facility: [facility] Address:[address] [place], [place] [address]Performed By: #### 86983-3 ####[facility] LABCLIA [id number] [place], [place] [address]Skokugvyicps cell count method Nom (Bld)AutoNormalCSCCI [facility] on above:Order Comment: Specimen Type: BLOOD SPECIMENOrdering Facility: [facility] Address:[address] [place], [place] [address]Performed By: #### 84859-8 ####[facility] LABCLIA [id number] [place], [place] [address]Lxkodtxruxa (Bld) [#/Vol]0.24 10*3/uLNormal<0.46[facility] on above:Order Comment: Specimen Type: BLOOD SPECIMENOrdering Facility: [facility] Address:[address] [place], [place] [address]Performed By: #### 15078-4 ####[facility] LABCLIA [id number] [place], [place] [address]Ndrhshnymxp/100 WBC (Bld)2.9 %NormalAvita Health System on above:Order Comment: Specimen Type: BLOOD SPECIMENOrdering Facility: [facility] Address:[address] [place], [place] [address]Performed By: #### 09262-9 ####[facility] LABIA [id number] [place], [place] [address]Ncppkbkbepd distribution width (RBC) [Ratio]13.7 %Normal 11.5-15.0[facility] on above:Order Comment: Specimen Type: BLOOD SPECIMENOrdering Facility: [facility] Address:[address] [place], [place] [address]Performed By: #### 87860-5 ####[facility] LABIA [id number] [place] [address] Hematocrit (Bld) [Volume fraction]32.5 %Low36.0-46.0[facility] Comment on above:Order Comment: Specimen Type: BLOOD SPECIMENOrdering Facility: [facility] Address:[address] [place] [address] Performed By: #### 20125-7 ####[facility] LABIA [id number] [place], [place] [address]Vhkbcllpci (Bld) [Mass/Vol]9.9 g/dLLow11.5-15.5[facility] on above:Order Comment: Specimen Type: BLOOD SPECIMENOrdering Facility: [facility] Address:[address] [place], [place] [address]Performed By: #### 71509-3 ####[facility] LABIA [id number] [place], [place] [address]Pubwgmse granulocytes (Bld) [#/Vol]0.03 10*3/uLNormal <0.10[facility] on above:Order Comment: Specimen Type: BLOOD SPECIMENOrdering Facility: [facility] Address:[address] [place], [place] [address]Performed By: #### 62660-4 ####[facility] LABIA [id number] [place], [place] [address]Awbsolwr granulocytes/100 WBC (Bld)0.4 %NormalAvita Health System on above: Order Comment: Specimen Type: BLOOD SPECIMENOrdering Facility: [facility] Address:[address] [place], [place] [address]Performed By: #### 82210- 8 ####[facility] LABCLIA [id number] [place], [place] [address]Hjzllvyjmbt (Bld) [#/Vol]0.69 10*3/uLLow1.00-4.00 [facility] on above:Order Comment: Specimen Type: BLOOD SPECIMENOrdering Facility: [facility] Address:[address] [place], [place] [address]Performed By: #### 19004-0 ####[facility] LABCLIA [id number] [place], [place] [address]Fsvoodshhop/100 WBC (Bld)8.4 %NormalAvita Health System on above:Order Comment: Specimen Type: BLOOD SPECIMENOrdering Facility: [facility] Address:[address] [place], [place] [address]Performed By: #### 82224-5 ####[facility] LABCLIA [id number] [place], [place] [address]HEC (RBC) [Entitic mass]30.7 mcTxauby76.0-34.0[facility] on above:Order Comment: Specimen Type: BLOOD SPECIMENOrdering Facility: [facility] Address:[address] [place], [place] [address]Performed By: #### 23115-7 ####[facility] LABCLIA [id number] [place], [place] [address]MUKN (RBC) [Mass/Vol]30.5 g/xSPngeki55.5-36.0[facility] on above: Order Comment: Specimen Type: BLOOD SPECIMENOrdering Facility: [facility] Address:[address] [place], [place] [address]Performed By: #### 85803- 8 ####[facility] LABCLIA [id number] [place], [place] [address]VDF (RBC) [Entitic vol]100.9 uRMyxg71.0-100.0[facility] on above:Order Comment: Specimen Type: BLOOD SPECIMENOrdering Facility: [facility] Address:[address] [place], [place] [address]Performed By: #### 24486-6 ####[facility] LABCLIA [id number] [place], [place] [address]Jipccsysv (Bld) [#/Vol]0.66 10*3/uLNormal<0.87[facility] on above:Order Comment: Specimen Type: BLOOD SPECIMENOrdering Facility: [facility] Address:[address] [place], [place] [address]Performed By: #### 44451- 8 ####[facility] LABCLIA [id number] [place], [place] [address]Sjxyzqvtw/100 WBC (Bld)8.0 %NormalAvita Health System on above:Order Comment: Specimen Type: BLOOD SPECIMENOrdering Facility: [facility] Address:[address] [place], [place] [address]Performed By: #### 17946-5 ####[facility] LABCLIA [id number] [place], [place] [address]Wjjomzrciva (Bld) [#/Vol]6.59 10*3/uLNormal1.45-7.50[facility] on above:Order Comment: Specimen Type: BLOOD SPECIMENOrdering Facility: [facility] Address:[address] [place], [place] [address]Performed By: #### 33361-2 ####[facility] LABCLIA [id number] [place], [place] [address]Khdovchkbil/100 WBC (Bld)79.8 %NormalAvita Health System on above:Order Comment: Specimen Type: BLOOD SPECIMENOrdering Facility: [facility] Address:[address] [place], [place] [address]Performed By: #### 21245-6 ####[facility] LABCLIA [id number] [place], [place] [address]Hmkolizgj RBC (Bld) [#/Vol] 10*3/uLNormal<0.01[facility] on above:Order Comment: Specimen Type: BLOOD SPECIMENOrdering Facility: [facility] Address:[address] [place], [place] [address]Performed By: #### 67972-5 ####[facility] LABCLIA [id number] [place], [place] [address]Xsiccgoht RBC/100 WBC (Bld) [Ratio]0.0 /100 WBCNormal [facility] on above:Order Comment: Specimen Type: BLOOD SPECIMENOrdering Facility: [facility] Address:[address] [place], [place] [address]Performed By: #### 93366-3 ####[facility] LABCLIA [id number] [place], [place] [address]Otmcqtty mean volume (Bld) [Entitic vol]8.9 fLLow9.0-12.7[facility] on above:Order Comment: Specimen Type: BLOOD SPECIMENOrdering Facility: [facility] Address:[address] [place], [place] [address]Performed By: #### 44810-7 ####[facility] LABCLIA [id number] [place], [place] [address]Ajieqsxgc (Bld) [#/Vol]368 10*3/eTDhjtuf296-857LmtcnmqzlAvita Health System on above:Order Comment: Specimen Type: BLOOD SPECIMENOrdering Facility: [facility] Address:[address] [place], [place] [address]Performed By: #### 87418-4 ####[facility] LABCLIA [id number] LIZETH ELLIOTTTUBA CITY REGIONAL HEALTH CARE CORPORATIONKASEYCENTER POINT, [place] [address]GNC (Bld) [#/Vol]3.22 10*6/uLLow3.90-5.20[facility] on above:Order Comment: Specimen Type: BLOOD SPECIMENOrdering Facility: [facility] Address:[address] [place], [place] [address]Performed By: #### 58341- 8 ####[facility] LABCLIA [id number] [facility] [place], [place] [address]CGR (Bld) [#/Vol]8.25 10*3/uLNormal3.70-11.00[facility] on above:Order Comment: Specimen Type: BLOOD SPECIMENOrdering Facility: [facility] Address:[address] [place], [place] [address]Performed By: #### 92795-3 ####[facility] LABIA [id number] [facility] [place], [place] [address]UCUPol 48-71-0508ISKMYsscdiPnecbovzd Clinic ClevelandCNOVSPon 23-46-5715ENTGBFUxofxd [facility] CenterComprehensive metabolic 2000 panelon 70-10-2371Iollaji [Mass/Vol]3.8 g/dLLow3.9-4.9[facility] on above:Order Comment: Specimen Type: BLOOD SPECIMENOrdering Facility: [facility] Address:[address] [place], [place] [address]Performed By: #### 34788- 9, 59963-5 ####[facility] LABIA [id number] [facility] HOSPITALAileenCENTER PO[place], [place] [address]IUU [Catalytic activity/Vol]98 U/DHjytfk17-314 [facility] on above:Order Comment: Specimen Type: BLOOD SPECIMENOrdering Facility: [facility] Address:[address] [place], [place] [address]Performed By: #### 66667-1, 09349-0 ####[facility] LABCLIA [id number] [place], [place] [address]XVO [Catalytic activity/Vol]12 U/LNormal7-38[facility] on above:Order Comment: Specimen Type: BLOOD SPECIMENOrdering Facility: [facility] Address:[address] [place], [place] [address]Performed By: #### 91356-7, 41921-0 ####[facility] LABCLIA [id number] [place], [place] [address]Mrrwa gap [Moles/Vol]12 mmol/LNormal8-15 [facility] on above:Order Comment: Specimen Type: BLOOD SPECIMENOrdering Facility: [facility] Address:[address] [place], [place] [address]Performed By: #### 02262-1, 88594-2 ####[facility] LABCLIA [id number] [place], [place] [address]LXE [Catalytic activity/Vol]10 U/ZNnl39-00ZnmxiaoroAvita Health System on above:Order Comment: Specimen Type: BLOOD SPECIMENOrdering Facility: [facility] Address:[address] [place], [place] [address]Performed By: #### 46286-5, 63947-5 ####[facility] LABCLIA [id number] [place], [place] [address]Jjjjoseza [Mass/Vol]0.4 mg/dLNormal0.2-1.3 [facility] on above:Order Comment: Specimen Type: BLOOD SPECIMENOrdering Facility: [facility] Address:[address] [place], [place] [address]Performed By: #### 31339-5, 74657-4 ####[facility] LABCLIA [id number] [place], [place] [address]Ttbyaee [Mass/Vol]9.8 mg/dLNormal8.5-10.2[facility] on above: Order Comment: Specimen Type: BLOOD SPECIMENOrdering Facility: [facility] Address:[address] [place], [place] [address]Performed By: #### 63436- 9, 62978-6 ####[facility] LABCLIA [id number] [place], [place] [address]Duzfdrgu [Moles/Vol]100 mmol/QKtjvmf34-452XichdofjpAvita Health System on above:Order Comment: Specimen Type: BLOOD SPECIMENOrdering Facility: [facility] Address:[address] [place], [place] [address]Performed By: #### 62509-9, 28083-3 ####[facility] LABCLIA [id number] [place], [place] [address]HX2 [Moles/Vol]27 mmol/JBamxlc20-20IltlqzxzoAvita Health System on above:Order Comment: Specimen Type: BLOOD SPECIMENOrdering Facility: [facility] Address:[address] [place], [place] [address]Performed By: #### 52467- 9, 62505-2 ####[facility] LABCLIA [id number] [place], [place] [address]Yqwixxpwxd [Mass/Vol]0.54 mg/dLLow0.58-0.96 [facility] on above:Order Comment: Specimen Type: BLOOD SPECIMENOrdering Facility: [facility] Address:[address] [place], [place] [address]Performed By: #### 55011-4, 82085-0 ####[facility] LABCLIA [id number] [place], [place] [address]nNHRce SerPlBld CKD-EPI 1569825 mL/min/1.73m???Normal>=60[facility] Comment on above:Order Comment: Specimen Type: BLOOD SPECIMENOrdering Facility: [facility] Address:[address] [place], [place] [address]Result Comment: Estimated Glomerular Filtration Rate (eGFR) is calculated using the 2020 CKD-EPI creatinine equation. This equation utilizes serum creatinine, sex, and age as parameters. The creatinine assay has traceable calibration to isotope dilution-mass spectrometry. Refer to KDIGO guidelines for clinical interpretation. In patients with unstable renal function, e.g. those with acute kidney injury, the eGFR may not accurately reflect actual GFR.Performed By: #### 08060-7, 48532-7 ####[facility] LABCLIA [id number] [place], [place] [address]Tndjckb [Mass/Vol]115 mg/nTIwgy13-71 [facility] on above:Order Comment: Specimen Type: BLOOD SPECIMENOrdering Facility: [facility] Address:[address] [place], [place] [address]Result Comment: The P[place] Diabetes Association (ADA) provides guidance for cutoff [...] Standards of Medical Care in Diabetes 2016, Prydeinig Diabetes Association. Diabetes Care. 2016.39(Suppl 1).Performed By: #### 95211- 9, 60359-1 ####[facility] LABCLIA [id number] [place], [place] [address]Brkkldvcb [Moles/Vol]4.2 mmol/LNormal3.7-5.1 [facility] on above:Order Comment: Specimen Type: BLOOD SPECIMENOrdering Facility: [facility] Address:[address] [place] [address]Asjecdtpi By: #### 55801-3, 06130-3 ####[facility] LABCLIA [id number] [place], [place] [address]Scytztp [Mass/Vol]7.1 g/dLNormal6.3-8.0[facility] on above:Order Comment: Specimen Type: BLOOD SPECIMENOrdering Facility: [facility] Address:[address] [place], [place] [address]Performed By: #### 75906- 9, 60602-1 ####[facility] LABCLIA [id number] [place], [place] [address]Gtlinf [Moles/Vol]139 mmol/TJwikii175-432IabydcsffAvita Health System on above:Order Comment: Specimen Type: BLOOD SPECIMENOrdering Facility: [facility] Address:[address] [place], [place] [address]Performed By: #### 74563-2, 89556-8 ####[facility] LABCLIA [id number] [place], [place] [address]Ycoo nitrogen [Mass/Vol]12 mg/dLNormal7-21[facility] on above: Order Comment: Specimen Type: BLOOD SPECIMENOrdering Facility: [facility] Address:[address] [place], [place] [address]Performed By: #### 10373- 9, 30829-3 ####[facility] LABCLIA [id number] [place], [place] [address]Ubbohyjoi SerPl-mCncon 82-25-0745Ydqxutgvg [Mass/Vol]1.8 mg/dLNormal1.7-2.3[facility] on above:Order Comment: Specimen Type: BLOOD SPECIMENOrdering Facility: [facility] Address:[address] [place], [place] [address]Performed By: #### 28426- 9, 12478-2 ####[facility] LABCLIA [id number] [place], [place] [address]Y4 Free SerPl-mCncon 10-33-6717Kxpj T4 [Mass/Vol] 0.9 ng/dLNormal0.9-1.7[facility] on above:Order Comment: Specimen Type: BLOOD SPECIMENOrdering Facility: [facility] Address:[address] [place], [place] [address]Performed By: #### 3016-3, TSHRF, 3024-7 ####[facility] LABCLIA [id number] [address]TS SerPl-aCncon 37-39-7244TRC Qn8.080 m[IU]/LHigh0.270-4.200[facility] on above:Order Comment: Specimen Type: BLOOD SPECIMENOrdering Facility: [facility] Address:[address] [place], [place] [address]Performed By: #### 3016- 3, [facility], 7 ####[facility] LABCLIA [id number] [address]ETCNOVon 26-17-2698JFXC NormalOhiohealth Grant Medical CenterCNCOon 53-61-7926OKNENmpdvx TextNormalCSuburban Community Hospital & Brentwood HospitalCNOVon 38-22-0139LHPNHtzriyZkkfymqzc Clinic ClevelandCB W Auto Differential panel (Bld)on 48-10-9625Yhjpfivau (Bld) [#/Vol]0.03 10*3/uLNormal <0.11[facility] on above:Order Comment: Specimen Type: BLOOD SPECIMENOrdering Facility: [facility] Address:[address] [place], [place] [address]Performed By: #### 98294-5 ####[facility] LABCLIA [id number] [place] [address] Basophils/100 WBC (Bld)0.5 %[facility] on above: Order Comment: Specimen Type: BLOOD SPECIMENOrdering Facility: [facility] Address:[address] [place], [place] [address]Performed By: #### [id number]- [id number] ####[facility] LABCLIA [id number] [place], [place] [address]Ewogggttcoky cell count method Nom (Bld)AutoNormal [facility] on above:Order Comment: Specimen Type: BLOOD SPECIMENOrdering Facility: [facility] Address:[address] [place], [place] [address]Performed By: #### [id number] ####[facility] LABIA [id number] [place], [place] [address]Wzggcsnpmah (Bld) [#/Vol]0.21 10*3/uLNormal<0.46[facility] on above: Order Comment: Specimen Type: BLOOD SPECIMENOrdering Facility: [facility] Address:[address] [place], [place] [address]Performed By: #### [id number]- 8 ####[facility] LABCLIA [id number] [place], [place] [address]Cwndlhnmnlw/100 WBC (Bld)3.8 %NormalAvita Health System on above:Order Comment: Specimen Type: BLOOD SPECIMENOrdering Facility: [facility] Address:[address] [place], [place] [address]Performed By: #### [id number] ####[facility] LABIA [id number] [place], [place] [address]Gvrowpexccw distribution width (RBC) [Ratio]13.1 %Hyognu94.5-15.0[facility] on above: Order Comment: Specimen Type: BLOOD SPECIMENOrdering Facility: [facility] Address:[address] [place], [place] [address]Performed By: #### 70422- 8 ####[facility] LABIA [id number] [place], [place] [address]Abnbiwevqz (Bld) [Volume fraction]30.3 %Low36.0-46.0 [facility] on above:Order Comment: Specimen Type: BLOOD SPECIMENOrdering Facility: [facility] Address:[address] [place], [place] [address]Performed By: #### [id number] ####[facility] LABCLIA [id number] [place], [place] [address]Hinwzidsat (Bld) [Mass/Vol]9.4 g/dLLow11.5-15.5[facility] on above:Order Comment: Specimen Type: BLOOD SPECIMENOrdering Facility: [facility] Address:[address] [place], [place] [address]Performed By: #### [id number]- 8 ####[facility] LABCLIA [id number] [place], [place] [address]Jtvhmotn granulocytes (Bld) [#/Vol]0.03 10*3/uLNormal <0.10[facility] on above:Order Comment: Specimen Type: BLOOD SPECIMENOrdering Facility: [facility] Address:[address] [place], [place] [address]Performed By: #### 65149-6 ####[facility] LABIA [id number] [place], [place] [address]Ypgfpsos granulocytes/100 WBC (Bld)0.5 %NormalAvita Health System on above: Order Comment: Specimen Type: BLOOD SPECIMENOrdering Facility: [facility] Address:[address] [place], [place] [address]Performed By: #### 96985- 8 ####[facility] LABCLIA [id number] [place], [place] [address]Wnrdhedmvur (Bld) [#/Vol]0.54 10*3/uLLow1.00-4.00 [facility] on above:Order Comment: Specimen Type: BLOOD SPECIMENOrdering Facility: [facility] Address:[address] [place], [place] [address]Performed By: #### 32429-6 ####[facility] LABCLIA [id number] [place], [place] [address]Ihahmlvrvch/100 WBC (Bld)9.9 %NormalAvita Health System on above:Order Comment: Specimen Type: BLOOD SPECIMENOrdering Facility: [facility] Address:[address] [place], [place] [address]Performed By: #### 48049-6 ####[facility] LABCLIA [id number] [place], [place] [address]IZX (RBC) [Entitic mass]31.8 rvUzucwv18.0-34.0[facility] on above:Order Comment: Specimen Type: BLOOD SPECIMENOrdering Facility: [facility] Address:[address] [place], [place] [address]Performed By: #### 29657-6 ####[facility] LABIA [id number] [place], [place] [address]XOYX (RBC) [Mass/Vol]31.0 g/bGBsjmtr08.5-36.0[facility] on above: Order Comment: Specimen Type: BLOOD SPECIMENOrdering Facility: [facility] Address:[address] [place], [place] [address]Performed By: #### 16915- 8 ####[facility] LABCLIA [id number] [place], [place] [address]QIU (RBC) [Entitic vol]102.4 lLWxes46.0-100.0[facility] on above:Order Comment: Specimen Type: BLOOD SPECIMENOrdering Facility: [facility] Address:[address] [place], [place] [address]Performed By: #### 99350-6 ####[facility] LABIA [id number] [place], [place] [address]Rcejnldgh (Bld) [#/Vol]0.54 10*3/uLNormal<0.87[facility] on above:Order Comment: Specimen Type: BLOOD SPECIMENOrdering Facility: [facility] Address:[address] [place], [place] [address]Performed By: #### 27556- 8 ####[facility] LABCLIA [id number] [place], [place] [address]Qoyrttqjg/100 WBC (Bld)9.9 %NormalAvita Health System on above:Order Comment: Specimen Type: BLOOD SPECIMENOrdering Facility: [facility] Address:[address] [place], [place] [address]Performed By: #### 45601-7 ####[facility] LABCLIA [id number] [place], [place] [address]Hshpxnjiwmm (Bld) [#/Vol]4.13 10*3/uLNormal1.45-7.50[facility] on above:Order Comment: Specimen Type: BLOOD SPECIMENOrdering Facility: [facility] Address:[address] [place], [place] [address]Performed By: #### 87645-3 ####[facility] LABCLIA [id number] [place], [place] [address]Vsnyhgvtfsn/100 WBC (Bld)75.4 %NormalAvita Health System on above:Order Comment: Specimen Type: BLOOD SPECIMENOrdering Facility: [facility] Address:[address] [place], [place] [address]Performed By: #### 72973-3 ####[facility] LABCLIA [id number] [place], [place] [address]Pjllcpkct RBC (Bld) [#/Vol] 10*3/uLNormal<0.01[facility] on above:Order Comment: Specimen Type: BLOOD SPECIMENOrdering Facility: [facility] Address:[address] [place], [place] [address]Performed By: #### 04444-8 ####[facility] LABCLIA [id number] [place], [place] [address]Jyvsbfkjg RBC/100 WBC (Bld) [Ratio]0.0 /100 WBCNormal [facility] on above:Order Comment: Specimen Type: BLOOD SPECIMENOrdering Facility: [facility] Address:[address] [place], [place] [address]Performed By: #### 17210-2 ####[facility] LABCLIA [id number] [place], [place] [address]Aqwkqthk mean volume (Bld) [Entitic vol]8.7 fLLow9.0-12.7[facility] on above:Order Comment: Specimen Type: BLOOD SPECIMENOrdering Facility: [facility] Address:[address] [place], [place] [address]Performed By: #### 59958-7 ####[facility] LABCLIA [id number] [place], [place] [address]Twprfmnrm (Bld) [#/Vol]332 10*3/uBXchxii606-326LftramwnrAvita Health System on above:Order Comment: Specimen Type: BLOOD SPECIMENOrdering Facility: [facility] Address:[address] [place], [place] [address]Performed By: #### 75941-4 ####[facility] LABCLIA [id number] [place], [place] [address]TFZ (Bld) [#/Vol]2.96 10*6/uLLow3.90-5.20[facility] on above:Order Comment: Specimen Type: BLOOD SPECIMENOrdering Facility: [facility] Address:[address] [place], [place] [address]Performed By: #### 73310- 8 ####[facility] LABCLIA [id number] [place], [place] [address]OPW (Bld) [#/Vol]5.48 10*3/uLNormal3.70-11.00[facility] on above:Order Comment: Specimen Type: BLOOD SPECIMENOrdering Facility: [facility] Address:[address] [place], [place] [address]Performed By: #### 88189-4 ####[facility] LABIA [id number] [place], [place] [address]OYWOHSwl 04-52-8761IQNZTYChkgjvUpfikbdjv Clinic ClevelandComprehensive metabolic 2000 panelon 90-50-6166Vlcabui [Mass/Vol]3.7 g/dLLow3.9-4.9CS[facility] Comment on above:Order Comment: Specimen Type: BLOOD SPECIMENOrdering Facility: [facility] Address:[address] [place] [address] Performed By: #### 10543-7, 58458-2 ####[facility] LABCLIA [id number] [place], [place] [address]JUB [Catalytic activity/Vol]145 U/ANmit50-393TbwxuohenAvita Health System on above:Order Comment: Specimen Type: BLOOD SPECIMENOrdering Facility: [facility] Address:[address] [place], [place] [address]Performed By: #### 13551- 9, 89215-0 ####[facility] LABCLIA [id number] [place], [place] [address]OQR [Catalytic activity/Vol]63 U/LHigh7-38[facility] Medical CenterComment on above:Order Comment: Specimen Type: BLOOD SPECIMENOrdering Facility: [facility] Address:[address] [place], [place] [address]Performed By: #### 92085-8, 84515-2 ####[facility] LABCLIA [id number] [place], [place] [address]Hlhie gap [Moles/Vol]9 mmol/LNormal8-15[facility] on above: Order Comment: Specimen Type: BLOOD SPECIMENOrdering Facility: [facility] Address:[address] [place], [place] [address]Performed By: #### 42136- 9, 51440-5 ####[facility] LABCLIA [id number] [place], [place] [address]BSF [Catalytic activity/Vol]27 U/ZHebour78-33 [facility] on above:Order Comment: Specimen Type: BLOOD SPECIMENOrdering Facility: [facility] Address:[address] [place], [place] [address]Performed By: #### 12969-5, 31522-5 ####[facility] LABCLIA [id number] [place] [address] Bilirubin [Mass/Vol]0.4 mg/dLNormal0.2-1.3[facility] on above:Order Comment: Specimen Type: BLOOD SPECIMENOrdering Facility: [facility] Address:[address] [place], [place] [address]Performed By: #### 54206-5, 81728-2 ####[facility] LABCLIA [id number] [place], [place] [address]Ntfokij [Mass/Vol]9.6 mg/dLNormal8.5-10.2 [facility] on above:Order Comment: Specimen Type: BLOOD SPECIMENOrdering Facility: [facility] Address:[address] [place], [place] [address]Performed By: #### 69731-1, 10720-0 ####[facility] LABCLIA [id number] [place], [place] [address]Adyibvwd [Moles/Vol]101 mmol/OPnafjx12-709RmqhjxecyAvita Health System on above: Order Comment: Specimen Type: BLOOD SPECIMENOrdering Facility: [facility] Address:[address] [place], [place] [address]Performed By: #### 48160- 9, 85711-0 ####[facility] LABCLIA [id number] [place], [place] [address]JD2 [Moles/Vol]29 mmol/PNorlhu07-83MhfjbjywlAvita Health System on above:Order Comment: Specimen Type: BLOOD SPECIMENOrdering Facility: [facility] Address:[address] [place] [address]Ikroyiouc By: #### 72772-7, ####[facility] LABCLIA [id number] [place], [place] [address]Iwxsqhrmbb [Mass/Vol] 0.47 mg/dLLow0.58-0.96[facility] on above:Order Comment: Specimen Type: BLOOD SPECIMENOrdering Facility: [facility] Address:[address] [place], [place] [address]Performed By: #### 04678-1, ####[facility] LABCLIA [id number] [place], [place] [address]mMEMks SerPlBld CKD-EPI 0543128 mL/min/1.73m???Normal>=60 [facility] on above:Order Comment: Specimen Type: BLOOD SPECIMENOrdering Facility: [facility] Address:[address] [place], [place] [address]Result Comment: Estimated Glomerular Filtration Rate (eGFR) is calculated using the 2020 CKD-EPI creatinine equation. This equation utilizes serum creatinine, sex, and age as parameters. The creatinine assay has traceable calibration to isotope dilution-mass spectrometry. Refer to KDIGO guidelines for clinical interpretation. In patients with unstable renal function, e.g. those with acute kidney injury, the eGFR may not accurately reflect actual GFR.Performed By: #### 88812-3, ####[facility] LABCLIA [id number] [place], [place] [address]Jlkjtom [Mass/Vol]99 mg/fKQvliwo98-40VwoeprtfdAvita Health System on above:Order Comment: Specimen Type: BLOOD SPECIMENOrdering Facility: [facility] Address:[address] [place] [address]Rxnsix Comment: The [place] Diabetes Association (ADA) provides guidance for cutoff [...] Standards of Medical Care in Diabetes 2016, [place] Diabetes Association. Diabetes Care. 2016.39(Suppl 1).Performed By: #### 46804-1, 05555-6 ####[facility] LABCLIA [id number] [place] [address] Potassium [Moles/Vol]3.9 mmol/LNormal3.7-5.1[facility] on above:Order Comment: Specimen Type: BLOOD SPECIMENOrdering Facility: [facility] Address:[address] [place], [place] [address]Performed By: #### 39664-2, ####[facility] LABCLIA [id number] [place], [place] [address]Meoxtso [Mass/Vol]7.2 g/dLNormal6.3-8.0 [facility] on above:Order Comment: Specimen Type: BLOOD SPECIMENOrdering Facility: [facility] Address:[address] [place], [place] [address]Performed By: #### 04947-3, 86768-0 ####[facility] LABCLIA [id number] [place], [place] [address]Mzwxcn [Moles/Vol]139 mmol/OVlrudx556-978KdqbcjcyrAvita Health System on above: Order Comment: Specimen Type: BLOOD SPECIMENOrdering Facility: [facility] Address:[address] [place], [place] [address]Performed By: #### 38047- 9, 84455-8 ####[facility] LABCLIA [id number] [place], [place] [address]Insz nitrogen [Mass/Vol]14 mg/dLNormal7-21[facility] on above:Order Comment: Specimen Type: BLOOD SPECIMENOrdering Facility: [facility] Address:[address] [place], [place] [address]Performed By: #### 90554-2, 13746-5 ####[facility] LABIA [id number] [place] [address] Magnesium SerPl-mCncon 92-24-1042Uysahxocf [Mass/Vol]2.0 mg/dLNormal1.7-2.3 [facility] on above:Order Comment: Specimen Type: BLOOD SPECIMENOrdering Facility: [facility] Address:[address] [place], [place] [address]Performed By: #### 14933-4, 98507-6 ####[facility] LABIA [id number] [place], [place] [address]RJR SerPl-aCncon 28-79-4534YLG Qn18.200 m[IU]/LHigh0.270-4.200[facility] on above:Order Comment: Specimen Type: BLOOD SPECIMENOrdering Facility: [facility] Address:[address] [place], [place] [address]Performed By: #### 3016-3 ####[facility] LABIA [id number] [place] [address] [place] CNOVon 80-73-4657LDZIRfuvwiErukhlfuq Clinic ClevelandCNPNon 57-16-1384LOWZUujtjv [facility] Grant Medical CenterCNOVon 85-75-7995GENZIkyqgjVsikprnsz [facility] CNPNon 11-16-0601SUMKUrubllVyosyitez Clinic ClevelandCNOVon 82-20-5052SZRTXavmvv [facility] CenterCNPNon 92-97-9131YCNVHuxysuKqpisbtaf [facility] CNCNPATEDon 43-19-4401BQCQIZRWBIqohxwBjvzhqlrj Clinic ClevelandCNNURSEon 34-64-8566NKIGNBCNtfnxrCckegjcyx Clinic ClevelandCNOVon 52-30-7021RYPUXqnkjc [facility] CenterCNPNon 80-67-1408UTMSNtsssiJikgszxjd [facility] ISTAT XRay CREon 55-53-3989RZZRU GFR>60.0NoNov[facility] Comment on above:Result Comment: PERFORMED BY: [place] [address] PATHOLOGIST RESERVATIONS SALES AGENT ALL SOLIS M.D.Performed By: #### ISCRE #### [place] [address] USAMR head/brain wo/w conon 74-64-7674BS head/brain wo/w con [facility] [place] [address] [place] [address] MRI Report Signed Patient: Ofe Saravia MR#: [id number] : 1955 Acct:[id number] Age/Sex: 69 / F ADM Date: 02/02/25 Loc: Room: Type: [facility] Attending Dr: Isaac Gracia MD Copies to: [...] Osorio MD 02/02/25 1635 Signed By: 02/02/25 1648[facility] Physician GroupMaetic resonance imaging reportOrdered By: Fran Osorio on 30-16-5530Eykcl reportMARION HOSPITAL [facility] [place] [address] [place] [address] MRI Report Signed Patient: Ofe Saravia MR#: [id number] : 1955 Acct:[id number] Age/Sex: 69 / F ADM Date: 5 Loc: MR Room: Type: [facility] Attending Dr: Isaac Gracia MD Copies to: Iasac Gracia MD~ Ordering Provider: Isaac Gracia MD [...] Osorio MD 02/02/25 163 Signed By: 02/02/251647 [facility] Work Phone: no Panel InformationOrdered By: Isaac Gracia on 10-23-0944Pmodnon Estimated GFR (eGFR)> 60.0[facility] Whole blood creatinine measurementOrdered By: Isaac Gracia on 02-02-2025 Creatinine [Mass/Vol]0.6 mg/dLNormal0.6-1.3FHolzer Health System Comment on above:ER/ESD physician is notified/shown all ISTAT results.Critical values may be confirmed by laboratorytesting ifdeemed necessary by ER attending doctor.Result Comment: ER/ESD physician is notified/shown all ISTAT results. Critical values may be confirmed by laboratory testing if deemed necessary by ER attending doctor.Performed By: #### ISCRE #### [place] [address] USACNPNon 60-19-9580QCFKAkyooiWgdshjjnzThe [facility] CNOVSPon 72-74-2269YKXLYZUyvvghGipwvcdvr [facility] CreekCNPNon 53-29-5413PPCH NormalGood [facility]aritan Hospital Clemercy healthCNOVon 14-29-2717HPXJWhtycgCwpuctanj [facility] CreekCNPNon 13-71-9034ABCONuoyorBfeasrvsu Clinic ClevelandCNNURSEon 36-56-4123EISSXNIHowybhXlghqrcrt Clinic ClevelandNM PET/CT SKULL-THIGH SUBQon 64-26-7428JU PET/CT SKULL-THIGH SUBQNormalCSuburban Community Hospital & Brentwood HospitalPET+CT Guidance for localization of tumor of Skull base to mid-thigh-- W 18F-FDG Carmen 47-81-4140Zkqdgccr by Provider, [facility] [place] on 01/18/2025 12:25 PM EDT * * [...] * Uptake Time: 56 minutes * Radiopharmaceutical: K09-Siwahmivejjopslqaq (FDG) COMPARISON: FDG PET/CT 11/15/2024 CORRELATION: Outside [...] image 75). * Infilt (more content not included)...[facility]ar[facility] HospitalRadiology Study observation (narrative)[facility] ClinicPET+CT Guidance for localization of tumor of Skull base to mid-thigh-- W 18F-FDG IVOrdered By: [facility] Provider on 01-18-2025 [facility] HospitalCNPNon 92-57-4977RFKBZduewsIjkkdfdzq Clinic ClevelandCBC W Auto Differential panel (Bld)on 54-71-9824Djegudafp (Bld) [#/Vol]10*3/uLNormal<0.11 [facility] on above:Order Comment: Specimen Type: BLOOD SPECIMENOrdering Facility: [facility] Address:[address] [place], [place] [address]Performed By: #### 12464-3 ####[facility] LABCLIA [id number] [place], [place] [address]Tfhbasjqr/100 WBC (Bld)0.3 %NormalAvita Health System on above:Order Comment: Specimen Type: BLOOD SPECIMENOrdering Facility: [facility] Address:[address] [place], [place] [address]Performed By: #### 21033-1 ####[facility] LABCLIA [id number] [place], [place] [address]Rzqntzulnbeo cell count method Nom (Bld)AutoNormal [facility] on above:Order Comment: Specimen Type: BLOOD SPECIMENOrdering Facility: [facility] Address:[address] [place], [place] [address]Performed By: #### 16857-6 ####[facility] LABIA [id number] [place], [place] [address]Izxrvkuwvry (Bld) [#/Vol]0.03 10*3/uLNormal<0.46[facility] on above: Order Comment: Specimen Type: BLOOD SPECIMENOrdering Facility: [facility] Address:[address] [place], [place] [address]Performed By: #### 00180- 8 ####[facility] LABCLIA [id number] [place], [place] [address]Ycqrydeegmp/100 WBC (Bld)0.5 %NormalAvita Health System on above:Order Comment: Specimen Type: BLOOD SPECIMENOrdering Facility: [facility] Address:[address] [place], [place] [address]Performed By: #### 62839-8 ####[facility] LABCLIA [id number] [place], [place] [address]Foobrwfxfwt distribution width (RBC) [Ratio]15.5 %High11.5-15.0[facility] on above:Order Comment: Specimen Type: BLOOD SPECIMENOrdering Facility: [facility] Address:[address] [place], [place] [address]Performed By: #### 51202- 8 ####[facility] LABCLIA [id number] [place], [place] [address]Bmhopaxlyj (Bld) [Volume fraction]35.3 %Low36.0-46.0 [facility] on above:Order Comment: Specimen Type: BLOOD SPECIMENOrdering Facility: [facility] Address:[address] [place], [place] [address]Performed By: #### 87634-1 ####[facility] LABCLIA [id number] [place], [place] [address]Oyaytepcgo (Bld) [Mass/Vol]11.6 g/gXDwptjh22.5-15.5[facility] on above: Order Comment: Specimen Type: BLOOD SPECIMENOrdering Facility: [facility] Address:[address] [place], [place] [address]Performed By: #### 19766- 8 ####[facility] LABCLIA [id number] [place], [place] [address]Ncyedlhp granulocytes (Bld) [#/Vol]10*3/uLNormal<0.10 [facility] on above:Order Comment: Specimen Type: BLOOD SPECIMENOrdering Facility: [facility] Address:[address] [place], [place] [address]Performed By: #### 57321-7 ####[facility] LABCLIA [id number] [place], [place] [address]Bfistpwe granulocytes/100 WBC (Bld)0.3 %NormalAvita Health System on above: Order Comment: Specimen Type: BLOOD SPECIMENOrdering Facility: [facility] Address:[address] [place], [place] [address]Performed By: #### 73671- 8 ####[facility] LABCLIA [id number] [place], [place] [address]Olaqbefeaps (Bld) [#/Vol]0.75 10*3/uLLow1.00-4.00 [facility] on above:Order Comment: Specimen Type: BLOOD SPECIMENOrdering Facility: [facility] Address:[address] [place], [place] [address]Performed By: #### 64477-5 ####[facility] LABIA [id number] [place], [place] [address]Ukmxsnwbvux/100 WBC (Bld)11.7 %NormalAvita Health System on above:Order Comment: Specimen Type: BLOOD SPECIMENOrdering Facility: [facility] Address:[address] [place], [place] [address]Performed By: #### 40783-0 ####[facility] LABIA [id number] [place], [place] [address]NSZ (RBC) [Entitic mass]33.7 daEnkzyx64.0-34.0[facility] on above:Order Comment: Specimen Type: BLOOD SPECIMENOrdering Facility: [facility] Address:[address] [place], [place] [address]Performed By: #### 93454-1 ####[facility] LABIA [id number] [place], [place] [address]ZALW (RBC) [Mass/Vol]32.9 g/yYEudurs95.5-36.0[facility] on above: Order Comment: Specimen Type: BLOOD SPECIMENOrdering Facility: [facility] Address:[address] [place], [place] [address]Performed By: #### 55493- 8 ####[facility] LABCLIA [id number] [place], [place] [address]VNS (RBC) [Entitic vol]102.6 lZKotg45.0-100.0[facility] on above:Order Comment: Specimen Type: BLOOD SPECIMENOrdering Facility: [facility] Address:[address] [place], [place] [address]Performed By: #### 68968-1 ####[facility] LABCLIA [id number] [place], [place] [address]Gqgwwouzv (Bld) [#/Vol]0.56 10*3/uLNormal<0.87[facility] on above:Order Comment: Specimen Type: BLOOD SPECIMENOrdering Facility: [facility] Address:[address] [place], [place] [address]Performed By: #### 03892- 8 ####[facility] LABCLIA [id number] [place], [place] [address]Yjrzadlfu/100 WBC (Bld)8.7 %NormalAvita Health System on above:Order Comment: Specimen Type: BLOOD SPECIMENOrdering Facility: [facility] Address:[address] [place], [place] [address]Performed By: #### 02651-3 ####[facility] LABIA [id number] [place], [place] [address]Wrmjxggibcg (Bld) [#/Vol]5.04 10*3/uLNormal1.45-7.50[facility] on above:Order Comment: Specimen Type: BLOOD SPECIMENOrdering Facility: [facility] Address:[address] [place], [place] [id number] By: #### [id number] ####[facility] LABCLIA [id number] [place], [place] [address]Zszghwswbas/100 WBC (Bld)78.5 %NormalAvita Health System on above:Order Comment: Specimen Type: BLOOD SPECIMENOrdering Facility: [facility] Address:[address] [place], [place] [address]Performed By: #### 87081-2 ####[facility] LABCLIA [id number] [place], [place] [address]Cohyyjwyw RBC (Bld) [#/Vol] 10*3/uLNormal<0.01[facility] on above:Order Comment: Specimen Type: BLOOD SPECIMENOrdering Facility: [facility] Address:[address] [place], [place] [address]Performed By: #### [id number] ####[facility] LABCLIA [id number] [place], [place] [address]Xscnkzvru RBC/100 WBC (Bld) [Ratio]0.0 /100 WBCNormal [facility] on above:Order Comment: Specimen Type: BLOOD SPECIMENOrdering Facility: [facility] Address:[address] [place], [place] [address]Performed By: #### [id number] ####[facility] LABIA [id number] [place], [place] [address]Ocxhaieo mean volume (Bld) [Entitic vol]9.0 fLNormal9.0-12.7[facility] on above:Order Comment: Specimen Type: BLOOD SPECIMENOrdering Facility: [facility] Address:[address] [place] [address] Performed By: #### 40672-5 ####[facility] LABIA [id number] [place], [place] [address]Txrckrghf (Bld) [#/Vol]292 10*3/cPZckkkl593-242BlfqbjrtfAvita Health System on above:Order Comment: Specimen Type: BLOOD SPECIMENOrdering Facility: [facility] Address:[address] [place], [place] [address]Performed By: #### 02913-3 ####[facility] LABCLIA [id number] [place], [place] [address]JBB (Bld) [#/Vol]3.44 10*6/uLLow3.90-5.20[facility] on above:Order Comment: Specimen Type: BLOOD SPECIMENOrdering Facility: [facility] Address:[address] [place], [place] [address]Performed By: #### 23208-4 ####[facility] CENTERIA [id number] [place], [place] [address]JEN (Bld) [#/Vol]6.42 10*3/uL Normal3.70-11.00[facility] on above:Order Comment: Specimen Type: BLOOD SPECIMENOrdering Facility: [facility] Address:[address] [place], [place] [address]Performed By: #### 12035-5 ####[facility] LABIA [id number] [place], [place] [address]TFEQALux 96-97-4396RVWDNAEqykbdHqlsegxruCleveland Clinic [facility] metabolic 2000 panelon 43-83-4371Eawesxj [Mass/Vol]4.0 g/dLNormal 3.9-4.9[facility] on above:Order Comment: Specimen Type: BLOOD SPECIMENOrdering Facility: [facility] Address:[address] [place], [place] [address]Performed By: #### 50800-8 ####[facility] LABIA [id number] [place], [place] [address]XVW [Catalytic activity/Vol]108 U/KVhbpdg82-022GdldxvuhdAvita Health [facility] on above:Order Comment: Specimen Type: BLOOD SPECIMENOrdering Facility: [facility] Address:[address] [place], [place] [address]Performed By: #### 82053-8 ####[facility] LABCLIA [id number] [facility]KAIS[facility] JOSETUBA CITY REGIONAL HEALTH CARE CORPORATIONKASEY [place] [address]NTP [Catalytic activity/Vol]11 U/LNormal7-38[facility] on above:Order Comment: Specimen Type: BLOOD SPECIMENOrdering Facility: [facility] Address:[address] [place], [place] [address]Performed By: #### 02921-4 ####[facility] LABCLIA [id number] [place], [place] [address]Mzbkn gap [Moles/Vol]9 mmol/LNormal8-15[facility] on above:Order Comment: Specimen Type: BLOOD SPECIMENOrdering Facility: [facility] Address:[address] [place], [place] [address]Performed By: #### 37102- 8 ####[facility] LABCLIA [id number] [facility] [place], [place] [address]TUE [Catalytic activity/Vol]11 U/QIlq69-54HwfjtwjuiAvita Health [facility] on above:Order Comment: Specimen Type: BLOOD SPECIMENOrdering Facility: [facility] Address:[address] [place], [place] [address]Performed By: #### 49481-3 ####[facility] LABCLIA [id number] [place], [place] [address]Hmzcwntay [Mass/Vol]0.2 mg/dLNormal0.2-1.3[facility] on above:Order Comment: Specimen Type: BLOOD SPECIMENOrdering Facility: [facility] Address:[address] [place], [place] [address]Performed By: #### 34393- 8 ####[facility] LABCLIA [id number] [place], [place] [address]Uzvzpoq [Mass/Vol]9.6 mg/dLNormal8.5-10.2[facility] on above:Order Comment: Specimen Type: BLOOD SPECIMENOrdering Facility: [facility] Address:[address] [place], [place] [address]Performed By: #### 19902-7 ####[facility] LABCLIA [id number] [place], [place] [address]Odlglhtd [Moles/Vol]104 mmol/L Xygjsw09-320OdeblruqxAv[facility] on above:Order Comment: Specimen Type: BLOOD SPECIMENOrdering Facility: [facility] Address:[address] [place], [place] [address]Performed By: #### 57824-7 ####[facility] LABCLIA [id number] [place] [address] CO2 [Moles/Vol]29 mmol/QWmbjaq84-06OelehvpfnAv[facility] on above: Order Comment: Specimen Type: BLOOD SPECIMENOrdering Facility: [facility] Address:[address] [place], [place] [address]Performed By: #### 15227- 8 ####[facility] LABCLIA [id number] [place], [place] [address]Jbmllqonbm [Mass/Vol]0.48 mg/dLLow0.58-0.96[facility] on above:Order Comment: Specimen Type: BLOOD SPECIMENOrdering Facility: [facility] Address:[address] [place], [place] [address]Performed By: #### 69936-8 ####[facility] LABCLIA [id number] [place], [place] [address]Gumraturzw and Glomerular filtration rate.predicted panel (S/P/Bld)103 mL/min/1.73m???Normal >=60[facility] on above:Order Comment: Specimen Type: BLOOD SPECIMENOrdering Facility: [facility] Address:[address] [place], [place] [address]Result Comment: Estimated Glomerular Filtration Rate (eGFR) is calculated using the 2020 CKD-EPI creatinine equation. This equation utilizes serum creatinine, sex, and age as parameters. The creatinine assay has traceable calibration to isotope dilution-mass spectrometry. Refer to KDIGO guidelines for clinical interpretation. In patients with unstable renal function, e.g. those with acute kidney injury, the eGFR may not accurately reflect actual GFR.Performed By: #### 10282-1 ####[facility] LABCLIA [id number] [place], [place] [address]Wurjemg [Mass/Vol]108 mg/bYZbpn17-10GorwgnuirAvita Health System on above:Order Comment: Specimen Type: BLOOD SPECIMENOrdering Facility: [facility] Address:[address] [place], [place] [address]Result Comment: The Prydein[place] Diabetes Association (ADA) provides guidance for cutoff [...] Standards of Medical Care in Diabetes 2016, Prydein[place] Diabetes Association. Diabetes Care. 2016.39(Suppl 1).Performed By: #### 94275-3 ####[facility] LABCLIA [id number] [place], [place] [address]Asvydyioi [Moles/Vol]4.6 mmol/LNormal3.7-5.1[facility] on above: Order Comment: Specimen Type: BLOOD SPECIMENOrdering Facility: [facility] Address:[address] [place] [address]Fiertljes By: #### 07919- 8 ####[facility] LABCLIA [id number] [place], [place] [address]Oclbtky [Mass/Vol]6.5 g/dLNormal6.3-8.0[facility] on above:Order Comment: Specimen Type: BLOOD SPECIMENOrdering Facility: [facility] Address:[address] [place], [place] [address]Performed By: #### 64808-8 ####[facility] LABCLIA [id number] [place], [place] [address]Hmxtoa [Moles/Vol]142 mmol/L Xwvnxo312-369UbsjpfyytAv[facility] Health System on above:Order Comment: Specimen Type: BLOOD SPECIMENOrdering Facility: [facility] Address:[address] [place], [place] [address]Performed By: #### 71715-6 ####[facility] LABCLIA [id number] [place] [address] Urea nitrogen [Mass/Vol]12 mg/dLNormal7-21[facility] on above:Order Comment: Specimen Type: BLOOD SPECIMENOrdering Facility: [facility] Address:[address] [place], [place] [address]Performed By: #### 85767-1 ####[facility] LABIA [id number] [place], [place] [address]IWF SerPl-aCncon 70-26-3618WGJ Qn8.370 m[IU]/LHigh 0.270-4.200[facility] on above:Order Comment: Specimen Type: BLOOD SPECIMENOrdering Facility: [facility] Address:[address] [place], [place] [address]Performed By: #### 3016-3 ####[facility] LABCLIA [id number] [place] [address] [place] OF AMERICACNPNon 14-85-0090STTRPitihkZpczetrzz Clinic ClevelandCBC W Auto Differential panel (Bld)on 05-85-2332Mfjbipoio (Bld) [#/Vol]10*3/uL Normal<0.11[facility] on above:Order Comment: Specimen Type: BLOOD SPECIMENOrdering Facility: [facility] Address:[address] [place], [place] [address]Performed By: #### 53092-7 ####[facility] LABCLIA [id number] [place] [address] Basophils/100 WBC (Bld)0.6 %NormalAv[facility] Health System on above: Order Comment: Specimen Type: BLOOD SPECIMENOrdering Facility: [facility] Address:[address] [place], [place] [address]Performed By: #### 80233- 8 ####[facility] LABCLIA [id number] [place], [place] [address]Nhwintwoamta cell count method Nom (Bld)AutoNormal [facility] on above:Order Comment: Specimen Type: BLOOD SPECIMENOrdering Facility: [facility] Address:[address] [place], [place] [address]Performed By: #### 18257-6 ####[facility] LABIA [id number] [place], [place] [address]Uasguaoqwip (Bld) [#/Vol]0.03 10*3/uLNormal<0.46[facility] on above: Order Comment: Specimen Type: BLOOD SPECIMENOrdering Facility: [facility] Address:[address] [place], [place] [address]Performed By: #### 04028- 8 ####[facility] LABCLIA [id number] [place], [place] [address]Nvrucvbmrps/100 WBC (Bld)0.9 %NormalAv[facility] Health System on above:Order Comment: Specimen Type: BLOOD SPECIMENOrdering Facility: [facility] Address:[address] [place], [place] [address]Performed By: #### 29078-1 ####[facility] LABIA [id number] [place], [place] [address]Apmmdflmdsh distribution width (RBC) [Ratio]17.6 %High11.5-15.0[facility] on above:Order Comment: Specimen Type: BLOOD SPECIMENOrdering Facility: [facility] Address:[address] [place], [place] [address]Performed By: #### 15022- 8 ####[facility] LABCLIA [id number] [place], [place] [address]Ytdmkmzrtu (Bld) [Volume fraction]35.0 %Low36.0-46.0 [facility] on above:Order Comment: Specimen Type: BLOOD SPECIMENOrdering Facility: [facility] Address:[address] [place], [place] [address]Performed By: #### 27607-1 ####[facility] LABIA [id number] [place], [place] [address]Kwdhmboeaf (Bld) [Mass/Vol]11.5 g/bTSqncnv21.5-15.5[facility] on above: Order Comment: Specimen Type: BLOOD SPECIMENOrdering Facility: [facility] Address:[address] [place], [place] [address]Performed By: #### 75446- 8 ####[facility] LABCLIA [id number] [place], [place] [address]Cevhehes granulocytes (Bld) [#/Vol]10*3/uLNormal<0.10 [facility] on above:Order Comment: Specimen Type: BLOOD SPECIMENOrdering Facility: [facility] Address:[address] [place], [place] [address]Performed By: #### 13394-6 ####[facility] LABIA [id number] [place], [place] [address]Jhtebrfd granulocytes/100 WBC (Bld)0.0 %NormalAvita Health System on above: Order Comment: Specimen Type: BLOOD SPECIMENOrdering Facility: [facility] Address:[address] [place], [place] [address]Performed By: #### 17003- 8 ####[facility] LABCLIA [id number] [place], [place] [address]Itaxeflwomo (Bld) [#/Vol]0.79 10*3/uLLow1.00-4.00 [facility] on above:Order Comment: Specimen Type: BLOOD SPECIMENOrdering Facility: [facility] Address:[address] [place], [place] [address]Performed By: #### 53070-5 ####[facility] LABCLIA [id number] [place], [place] [address]Vkvkskjyccl/100 WBC (Bld)24.9 %NormalAv[facility] Health [facility] on above:Order Comment: Specimen Type: BLOOD SPECIMENOrdering Facility: [facility] Address:[address] [place], [place] [address]Performed By: #### 03452-2 ####[facility] LABCLIA [id number] [place], [place] [address]XFP (RBC) [Entitic mass]33.1 ayZfnjfm59.0-34.0[facility] on above:Order Comment: Specimen Type: BLOOD SPECIMENOrdering Facility: [facility] Address:[address] [place], [place] [address]Performed By: #### 00779-6 ####[facility] LABIA [id number] [place], [place] [address]NIJS (RBC) [Mass/Vol]32.9 g/oJCdmnge87.5-36.0[facility] on above: Order Comment: Specimen Type: BLOOD SPECIMENOrdering Facility: [facility] Address:[address] [place], [place] [address]Performed By: #### 67058- 8 ####[facility] LABCLIA [id number] [place], [place] [address]MOX (RBC) [Entitic vol]100.9 oIUriv49.0-100.0[facility] on above:Order Comment: Specimen Type: BLOOD SPECIMENOrdering Facility: [facility] Address:[address] [place], [place] [address]Performed By: #### 46574-3 ####[facility] LABCLIA [id number] [place], [place] [address]Vpxfhjpqr (Bld) [#/Vol]0.37 10*3/uLNormal<0.87[facility] on above:Order Comment: Specimen Type: BLOOD SPECIMENOrdering Facility: [facility] Address:[address] [place], [place] [address]Performed By: #### 04886- 8 ####[facility] LABCLIA [id number] [place], [place] [address]Zlrvgcaee/100 WBC (Bld)11.7 %NormalAv[facility] Health System on above:Order Comment: Specimen Type: BLOOD SPECIMENOrdering Facility: [facility] Address:[address] [place], [place] [address]Performed By: #### 14366-1 ####[facility] LABCLIA [id number] [place], [place] [address]Rayyksqdboo (Bld) [#/Vol]1.96 10*3/uLNormal1.45-7.50[facility] on above:Order Comment: Specimen Type: BLOOD SPECIMENOrdering Facility: [facility] Address:[address] [place], [place] [address]Performed By: #### 50755-8 ####[facility] LABCLIA [id number] [place], [place] [address]Dhhbttnehhh/100 WBC (Bld)61.9 %NormalAvita Health System on above:Order Comment: Specimen Type: BLOOD SPECIMENOrdering Facility: [facility] Address:[address] [place], [place] [address]Performed By: #### 91910-0 ####[facility] LABCLIA [id number] [place], [place] [address]Mwmduztoq RBC (Bld) [#/Vol] 10*3/uLNormal<0.01[facility] on above:Order Comment: Specimen Type: BLOOD SPECIMENOrdering Facility: [facility] Address:[address] [place], [place] [address]Performed By: #### 03856-8 ####[facility] LABCLIA [id number] [place], [place] [address]Blnhptdjz RBC/100 WBC (Bld) [Ratio]0.0 /100 WBCNormal [facility] on above:Order Comment: Specimen Type: BLOOD SPECIMENOrdering Facility: [facility] Address:[address] [place], [place] [address]Performed By: #### 68229-2 ####[facility] LABCLIA [id number] [place], [place] [address]Nyixdqvs mean volume (Bld) [Entitic vol]9.0 fLNormal9.0-12.7[facility] on above:Order Comment: Specimen Type: BLOOD SPECIMENOrdering Facility: [facility] Address:[address] [place] [address] Performed By: #### 20984-1 ####[facility] LABCLIA [id number] [place], [place] [address]Pndikhova (Bld) [#/Vol]188 10*3/iSBvlwnh365-544XwfgxbgvsAvita Health System on above:Order Comment: Specimen Type: BLOOD SPECIMENOrdering Facility: [facility] Address:[address] [place], [place] [address]Performed By: #### 59400-2 ####[facility] LABCLIA [id number] [place], [place] [address]WWG (Bld) [#/Vol]3.47 10*6/uLLow3.90-5.20[facility] on above:Order Comment: Specimen Type: BLOOD SPECIMENOrdering Facility: [facility] Address:[address] [place], [place] [address]Performed By: #### 15846-8 ####[facility] LABIA [id number] [place], [place] [address]AHE (Bld) [#/Vol]3.17 10*3/uL Low3.70-11.00[facility] on above:Order Comment: Specimen Type: BLOOD SPECIMENOrdering Facility: [facility] Address:[address] [place], [place] [address]Performed By: #### 56462-5 ####[facility] LABIA [id number] [place] [address] CNOVSPon 63-80-5709GSQVDXXbifvzIrisxcxpy Clinic ClevelandCNPNon 62-86-0352OBEZ NormalOhiohealth Grant Medical CenterComprehensive metabolic 2000 panelon 12-14-2024 Albumin [Mass/Vol]4.1 g/dLNormal3.9-4.9[facility] on above:Order Comment: Specimen Type: BLOOD SPECIMENOrdering Facility: [facility] Address:[address] [place], [place] [address]Performed By: #### 67307-8, 17119-3 ####[facility] LABCLIA [id number] [place], [place] [address]QDD [Catalytic activity/Vol]85 U/LNormal 34-123[facility] on above:Order Comment: Specimen Type: BLOOD SPECIMENOrdering Facility: [facility] Address:[address] [place], [place] [address]Performed By: #### 81400-7, 56954-1 ####[facility] LABCLIA [id number] [place], [place] [address]NKV [Catalytic activity/Vol]12 U/LNormal7-38[facility] Comment on above:Order Comment: Specimen Type: BLOOD SPECIMENOrdering Facility: [facility] Address:[address] [place] [address] Performed By: #### 41716-4, 25285-6 ####[facility] LABCLIA [id number] [place], [place] [address]Ovnny gap [Moles/Vol] 12 mmol/LNormal8-15[facility] CenterComstraith hospital for special surgery on above:Order Comment: Specimen Type: BLOOD SPECIMENOrdering Facility: [facility] Address:[address] [place], [place] [address]Performed By: #### 57304-5, 20436-0 ####[facility] LABCLIA [id number] [place], [place] [address]RJI [Catalytic activity/Vol]11 U/BYrt46-48SxsxagyusAvita Health System on above:Order Comment: Specimen Type: BLOOD SPECIMENOrdering Facility: [facility] Address:[address] [place], [place] [address]Performed By: #### 57447-2, 79807-6 ####[facility] LABCLIA [id number] [place] [address] Bilirubin [Mass/Vol]0.2 mg/dLNormal0.2-1.3CSuburban Community Hospital & Brentwood HospitalComstraith hospital for special surgery on above:Order Comment: Specimen Type: BLOOD SPECIMENOrdering Facility: [facility] Address:[address] [place], [place] [address]Performed By: #### 56865-7, 72482-0 ####[facility] LABCLIA [id number] [place], [place] [address]Hlmcjwr [Mass/Vol]9.2 mg/dLNormal8.5-10.2 [facility] on above:Order Comment: Specimen Type: BLOOD SPECIMENOrdering Facility: [facility] Address:[address] [place], [place] [address]Performed By: #### 57714-6, 18800-6 ####[facility] LABCLIA [id number] [place], [place] [address]Tlicbusy [Moles/Vol]105 mmol/GZbfjkw22-213UrgmvnqkuAvita Health System on above: Order Comment: Specimen Type: BLOOD SPECIMENOrdering Facility: [facility] Address:[address] [place], [place] [address]Performed By: #### 62203- 9, 17645-4 ####[facility] LABCLIA [id number] [place], [place] [address]IK8 [Moles/Vol]26 mmol/VHqnkke84-44FkzeoijkwAvita Health System on above:Order Comment: Specimen Type: BLOOD SPECIMENOrdering Facility: [facility] Address:[address] [place], [place] [address]Performed By: #### 28690-8, 44895-3 ####[facility] LABCLIA [id number] [place], [place] [address]Txzidmnwxb [Mass/Vol] 0.49 mg/dLLow0.58-0.96[facility] on above:Order Comment: Specimen Type: BLOOD SPECIMENOrdering Facility: [facility] Address:[address] [place], [place] [address]Performed By: #### 31125-2, 17832-8 ####[facility] LABCLIA [id number] [place], [place] [address]Yxcqibwvix and Glomerular filtration rate.predicted panel (S/P/Bld)103 mL/min/1.73m???Normal>=60[facility] on above:Order Comment: Specimen Type: BLOOD SPECIMENOrdering Facility: [facility] Address:[address] [place], [place] [address]Result Comment: Estimated Glomerular Filtration Rate (eGFR) is [...] not accurately reflect actual GFR.Performed By: #### 35172-0, 49895-7 ####[facility] LABCLIA [id number] [place], [place] [address]Sqhuapl [Mass/Vol]105 mg/yROtfa50-61KkxgleljsAvita Health System on above:Order Comment: Specimen Type: BLOOD SPECIMENOrdering Facility: [facility] Address:[address] [place] [address]Aqaasr Comment: The [place] Diabetes Association (ADA) provides guidance for cutoff [...] Standards of Medical Care in Diabetes 2016, Prydein[place] Diabetes Association. Diabetes Care. 2016.39(Suppl 1).Performed By: #### 51436- 9, 75303-4 ####[facility] LABCLIA [id number] [place], [place] [address]Qjhcecvnv [Moles/Vol]3.9 mmol/LNormal3.7-5.1 [facility] on above:Order Comment: Specimen Type: BLOOD SPECIMENOrdering Facility: [facility] Address:[address] [place], [place] [address]Uruljmgwb By: #### 66228-9, ####[facility] LABCLIA [id number] [place], [place] [address]Brtrjqh [Mass/Vol]6.1 g/dLLow6.3-8.0[facility] on above:Order Comment: Specimen Type: BLOOD SPECIMENOrdering Facility: [facility] Address:[address] [place], [place] [address]Performed By: #### 95755- 9, 74603-7 ####[facility] LABCLIA [id number] [place], [place] [address]Mxqsyo [Moles/Vol]143 mmol/HWthwbe606-968TvwscbydkAvita Health System on above:Order Comment: Specimen Type: BLOOD SPECIMENOrdering Facility: [facility] Address:[address] [place], [place] [id number] By: #### 36909-1, 06146-5 ####[facility] LABCLIA [id number] [place], [place] [address]Yrij nitrogen [Mass/Vol]15 mg/dLNormal7-21[facility] on above: Order Comment: Specimen Type: BLOOD SPECIMENOrdering Facility: [facility] Address:[address] [place], [place] [address]Performed By: #### 93848- 9, 94279-2 ####[facility] LABCLIA [id number] [place], [place] [address]Vnnghapcd SerPl-mCncon 89-79-4070Syndzusyw [Mass/Vol]1.5 mg/dLLow1.7-2.3[facility] on above:Order Comment: Specimen Type: BLOOD SPECIMENOrdering Facility: [facility] Address:[address] [place], [place] [address]Performed By: #### 24566- 9, 46826-0 ####[facility] LABCLIA [id number] [place], [place] [address]AUD W Auto Differential panel (Bld)on 11-23-2024 Basophils (Bld) [#/Vol]0.04 10*3/uLNormal<0.11[facility] on above:Order Comment: Specimen Type: BLOOD SPECIMENOrdering Facility: [facility] Address:[address] [place] [address] Performed By: #### 73496-7 ####[facility] LABCLIA [id number] [place], [place] [address]Ipqhggvox/100 WBC (Bld)0.6 % NormalAvita Health System on above:Order Comment: Specimen Type: BLOOD SPECIMENOrdering Facility: [facility] Address:[address] [place], [place] [address]Performed By: #### 25592-1 ####[facility] LABCLIA [id number] [place] [address] Differential cell count method Nom (Bld)AutoNormalClevelSampson Regional Medical Center Comment on above:Order Comment: Specimen Type: BLOOD SPECIMENOrdering Facility: [facility] Address:[address] [place] [address] Performed By: #### 54363-5 ####[facility] LABCLIA [id number] [place], [place] [address]Cldujboswmj (Bld) [#/Vol]0.06 10*3/uLNormal<0.46[facility] on above:Order Comment: Specimen Type: BLOOD SPECIMENOrdering Facility: [facility] Address:[address] [place], [place] [address]Performed By: #### 07647-7 ####[facility] LABCLIA [id number] [place], [place] [address]Zitkktzmztf/100 WBC (Bld)0.9 %NormalAvita Health System on above:Order Comment: Specimen Type: BLOOD SPECIMENOrdering Facility: [facility] Address:[address] [place], [place] [address]Performed By: #### 28753-7 ####[facility] LABCLIA [id number] [place] [address]Wwtzqoszavy distribution width (RBC) [Ratio]21.2 %High11.5-15.0[facility] on above:Order Comment: Specimen Type: BLOOD SPECIMENOrdering Facility: [facility] Address:[address] [place], [place] [address]Performed By: #### 76735- 8 ####[facility] LABCLIA [id number] [place], [place] [address]Fhdejhdnyb (Bld) [Volume fraction]37.3 %Gblgbq06.0-46.0 [facility] on above:Order Comment: Specimen Type: BLOOD SPECIMENOrdering Facility: [facility] Address:[address] [place], [place] [address]Performed By: #### 20782-0 ####[facility] LABCLIA [id number] [place], [place] [address]Takorujmwx (Bld) [Mass/Vol]11.9 g/iMWgoiwv89.5-15.5[facility] on above: Order Comment: Specimen Type: BLOOD SPECIMENOrdering Facility: [facility] Address:[address] [place], [place] [address]Performed By: #### 49960- 8 ####[facility] LABCLIA [id number] [place], [place] [address]Qisxvawq granulocytes (Bld) [#/Vol]10*3/uLNormal<0.10 [facility] on above:Order Comment: Specimen Type: BLOOD SPECIMENOrdering Facility: [facility] Address:[address] [place], [place] [address]Performed By: #### 05947-1 ####[facility] LABCLIA [id number] [place], [place] [address]Nshzpirr granulocytes/100 WBC (Bld)0.3 %NormalAvita Health System on above: Order Comment: Specimen Type: BLOOD SPECIMENOrdering Facility: [facility] Address:[address] [place], [place] [address]Performed By: #### 95974- 8 ####[facility] LABCLIA [id number] [place], [place] [address]Omugudpxxgd (Bld) [#/Vol]0.78 10*3/uLLow1.00-4.00 [facility] on above:Order Comment: Specimen Type: BLOOD SPECIMENOrdering Facility: [facility] Address:[address] [place], [place] [address]Performed By: #### 29267-2 ####[facility] LABCLIA [id number] [place], [place] [address]Eontaaadaev/100 WBC (Bld)12.1 %NormalAvita Health System on above:Order Comment: Specimen Type: BLOOD SPECIMENOrdering Facility: [facility] Address:[address] [place], [place] [address]Performed By: #### 29572-2 ####[facility] LABCLIA [id number] [place], [place] [address]PZZ (RBC) [Entitic mass]31.6 soJmgneb19.0-34.0[facility] on above:Order Comment: Specimen Type: BLOOD SPECIMENOrdering Facility: [facility] Address:[address] [place], [place] [address]Performed By: #### 13107-2 ####[facility] LABCLIA [id number] [place], [place] [address]JCJD (RBC) [Mass/Vol]31.9 g/dHPqqqqa36.5-36.0[facility] on above: Order Comment: Specimen Type: BLOOD SPECIMENOrdering Facility: [facility] Address:[address] [place], [place] [address]Performed By: #### 98484- 8 ####[facility] LABCLIA [id number] [place], [place] [address]DSP (RBC) [Entitic vol]98.9 kOOqxima32.0-100.0[facility] on above:Order Comment: Specimen Type: BLOOD SPECIMENOrdering Facility: [facility] Address:[address] [place], [place] [address]Performed By: #### 20790-1 ####[facility] LABCLIA [id number] [place], [place] [address]Seisdahsy (Bld) [#/Vol]0.57 10*3/uLNormal<0.87[facility] on above:Order Comment: Specimen Type: BLOOD SPECIMENOrdering Facility: [facility] Address:[address] [place], [place] [address]Performed By: #### 15674- 8 ####[facility] LABCLIA [id number] [place], [place] [address]Qnquirlhk/100 WBC (Bld)8.9 %NormalAvita Health System on above:Order Comment: Specimen Type: BLOOD SPECIMENOrdering Facility: [facility] Address:[address] [place], [place] [address]Performed By: #### 93090-4 ####[facility] LABCLIA [id number] [place], [place] [address]Gtvfueeaamg (Bld) [#/Vol]4.96 10*3/uLNormal1.45-7.50[facility] on above:Order Comment: Specimen Type: BLOOD SPECIMENOrdering Facility: [facility] Address:[address] [place], [place] [address]Performed By: #### 69273-4 ####[facility] LABCLIA [id number] [place], [place] [address]Ordpnqiehpz/100 WBC (Bld)77.2 %NormalAv[facility] Health [facility] on above:Order Comment: Specimen Type: BLOOD SPECIMENOrdering Facility: [facility] Address:[address] [place], [place] [address]Performed By: #### 47591-8 ####[facility] LABCLIA [id number] [place], [place] [address]Jiiqyzqyc RBC (Bld) [#/Vol] 10*3/uLNormal<0.01[facility] on above:Order Comment: Specimen Type: BLOOD SPECIMENOrdering Facility: [facility] Address:[address] [place], [place] [address]Performed By: #### 52145-6 ####[facility] LABCLIA [id number] [place], [place] [address]Zlhzqlvmg RBC/100 WBC (Bld) [Ratio]0.0 /100 WBCNormal [facility] on above:Order Comment: Specimen Type: BLOOD SPECIMENOrdering Facility: [facility] Address:[address] [place], [place] [address]Performed By: #### 82688-0 ####[facility] LABIA [id number] [place], [place] [address]Qjfhajig mean volume (Bld) [Entitic vol]9.3 fLNormal9.0-12.7[facility] on above:Order Comment: Specimen Type: BLOOD SPECIMENOrdering Facility: [facility] Address:[address] [place] [address] Performed By: #### 44455-4 ####[facility] LABIA [id number] [place], [place] [address]Tjhmkelor (Bld) [#/Vol]278 10*3/iEQfbnoq326-229VsfnxvpobAv[facility] on above:Order Comment: Specimen Type: BLOOD SPECIMENOrdering Facility: [facility] Address:[address] [place], [place] [address]Performed By: #### 39483-1 ####[facility] LABIA [id number] [place], [place] [address]IVG (Bld) [#/Vol]3.77 10*6/uLLow3.90-5.20[facility] on above:Order Comment: Specimen Type: BLOOD SPECIMENOrdering Facility: [facility] Address:[address] [place], [place] [address]Performed By: #### 90418-1 ####[facility] LABCLIA [id number] [place], [place] [address]LMQ (Bld) [#/Vol]6.43 10*3/uL Normal3.70-11.00[facility] on above:Order Comment: Specimen Type: BLOOD SPECIMENOrdering Facility: [facility] Address:[address] [place], [place] [address]Performed By: #### 41524-1 ####[facility] LABCLIA [id number] [place], [place] [address]WFUXoq 41-21-0619FNZSEwdhsoPcvthvsef Clinic [facility] CNOVSPon 14-22-2027BSMYKSAytzepXrktouaso Clinic ClevelandComprehensive metabolic 2000 panelon 63-42-0637Ylbdqfr [Mass/Vol]4.2 g/dLNormal3.9-4.9[facility] on above:Order Comment: Specimen Type: BLOOD SPECIMENOrdering Facility: [facility] Address:[address] [place], [place] [address]Performed By: #### 72056-4, 31704-3 ####[facility] LABCLIA [id number] [place], [place] [address]BEB [Catalytic activity/Vol]102 U/YKgbovt60-859KsarculhcAvita Health System on above:Order Comment: Specimen Type: BLOOD SPECIMENOrdering Facility: [facility] Address:[address] [place], [place] [address]Performed By: #### 68832- 9, 77792-0 ####[facility] LABCLIA [id number] [place], [place] [address]UIG [Catalytic activity/Vol]16 U/LNormal7-38 [facility] on above:Order Comment: Specimen Type: BLOOD SPECIMENOrdering Facility: [facility] Address:[address] [place], [place] [address]Performed By: #### 31180-9, 05449-0 ####[facility] LABCLIA [id number] [place], [place] [address]Gqspd gap [Moles/Vol]12 mmol/LNormal8-15[facility] on above: Order Comment: Specimen Type: BLOOD SPECIMENOrdering Facility: [facility] Address:[address] [place], [place] [address]Performed By: #### 74851- 9, 28570-6 ####[facility] LABCLIA [id number] [place], [place] [address]AUF [Catalytic activity/Vol]15 U/HWsibdz59-58 [facility] on above:Order Comment: Specimen Type: BLOOD SPECIMENOrdering Facility: [facility] Address:[address] [place], [place] [address]Performed By: #### 31240-2, 08556-9 ####[facility] LABCLIA [id number] [place] [address] Bilirubin [Mass/Vol]0.3 mg/dLNormal0.2-1.3[facility] on above:Order Comment: Specimen Type: BLOOD SPECIMENOrdering Facility: [facility] Address:[address] [place], [place] [address]Performed By: #### 56621-4, 98468-8 ####[facility] LABCLIA [id number] [place], [place] [address]Yhxmwkp [Mass/Vol]9.8 mg/dLNormal8.5-10.2 [facility] on above:Order Comment: Specimen Type: BLOOD SPECIMENOrdering Facility: [facility] Address:[address] [place], [place] [address]Performed By: #### 96845-4, 89090-3 ####[facility] LABCLIA [id number] [place], [place] [address]Oknrrpfr [Moles/Vol]101 mmol/SPfrqqb50-073LjnzuzmnkAvita Health System on above: Order Comment: Specimen Type: BLOOD SPECIMENOrdering Facility: [facility] Address:[address] [place], [place] [address]Performed By: #### 62077- 9, 95463-2 ####[facility] LABCLIA [id number] [place], [place] [address]MN0 [Moles/Vol]26 mmol/GFksfna38-49HhhydkayjAvita Health System on above:Order Comment: Specimen Type: BLOOD SPECIMENOrdering Facility: [facility] Address:[address] [place], [place] [address]Performed By: #### 34358-0, 51431-4 ####[facility] LABCLIA [id number] [place], [place] [address]Nfgjnowgfj [Mass/Vol] 0.53 mg/dLLow0.58-0.96[facility] on above:Order Comment: Specimen Type: BLOOD SPECIMENOrdering Facility: [facility] Address:[address] [place], [place] [address]Performed By: #### 22958-2, 95637-3 ####[facility] LABCLIA [id number] [place], [place] [address]Byjontzynb and Glomerular filtration rate.predicted panel (S/P/Bld)101 mL/min/1.73m???Normal>=60[facility] on above:Order Comment: Specimen Type: BLOOD SPECIMENOrdering Facility: [facility] Address:[address] [place], [place] [address]Result Comment: Estimated Glomerular Filtration Rate (eGFR) is [...] not accurately reflect actual GFR.Performed By: #### 37582-0, 44901-5 ####[facility] LABCLIA [id number] [place], [place] [address]Uceqaup [Mass/Vol]97 mg/zQBkmysq76-20RabupnadoAvita Health System on above:Order Comment: Specimen Type: BLOOD SPECIMENOrdering Facility: [facility] Address:[address] [place] [address]Hkyrwd Comment: The [place] Diabetes Association (ADA) provides guidance for cutoff [...] Standards of Medical Care in Diabetes 2016, [place] Diabetes Association. Diabetes Care. 2016.39(Suppl 1).Performed By: #### 53411- 9, 11226-4 ####[facility] LABCLIA [id number] [place], [place] [address]Svykvcyhe [Moles/Vol]4.5 mmol/LNormal3.7-5.1 [facility] on above:Order Comment: Specimen Type: BLOOD SPECIMENOrdering Facility: [facility] Address:[address] [place], [place] [address]Tatfbzzxd By: #### 38374-0, 40608-8 ####[facility] LABIA [id number] [place], [place] [address]Heqxdlu [Mass/Vol]7.0 g/dLNormal6.3-8.0[facility] on above:Order Comment: Specimen Type: BLOOD SPECIMENOrdering Facility: [facility] Address:[address] [place] [address]Xdmenypkc By: #### 53296- 9, 37953-6 ####[facility] LABCLIA [id number] [place], [place] [address]Fphmtw [Moles/Vol]139 mmol/XMkzkdc507-241YphkdjnozAvita Health System on above:Order Comment: Specimen Type: BLOOD SPECIMENOrdering Facility: [facility] Address:[address] [place], [place] [address]Performed By: #### 86735-7, 90410-2 ####[facility] LABCLIA [id number] [place], [place] [address]Soov nitrogen [Mass/Vol]20 mg/dLNormal7-21[facility] on above: Order Comment: Specimen Type: BLOOD SPECIMENOrdering Facility: [facility] Address:[address] [place], [place] [address]Performed By: #### 66130- 9, 81762-8 ####[facility] LABIA [id number] [place], [place] [address]Wifztiecn SerPl-mCncon 26-74-0701Jldognexj [Mass/Vol]1.8 mg/dLNormal1.7-2.3[facility] on above:Order Comment: Specimen Type: BLOOD SPECIMENOrdering Facility: [facility] Address:[address] [place], [place] [address]Performed By: #### 19514- 9, 78881-3 ####[facility] LABCLIA [id number] [place], [place] [address]QIR SerPl-aCncon 40-25-3329OUZ Qn2.680 m[IU]/L Normal0.270-4.200[facility] on above:Order Comment: Specimen Type: BLOOD SPECIMENOrdering Facility: [facility] Address:[address] [place], [place] [address]Performed By: #### 3016-3 ####[facility] LABCLIA [id number] [place]RINA MAGUIRE [place] [id number] [place] OF AMERICACNPNon 91-01-8868JZKPJbuefh [facility] CenterGLUCOSE, BLOOD (POC)on 81-18-6012Fgcmysn [Mass/Vol]106 mg/jDQmppcblr65 - 99 mg/dLGood Samaritan HospitalComment on above:Location:[facility], [address] [place] [address] , [place], [place], [address] The Accu-Chek Inform II glucose meter has [...] above situations. Interpretation and review of laboratory resultsAbnormalCFisher-Titus Medical CenterNM PET/CT SKULL-THIGH SUBQon 22-53-9377ZR PET/CT SKULL-THIGH SUBQNormal [facility] CenterPET+CT Guidance for localization of tumor of Skull base to mid-thigh-- W 18F-FDG Carmen 85-93-0894Wqtvjqxa by Provider, [facility] [place] on 11/15/2024 4:39 PM EDT * * [...] * Uptake Time: 59 minutes * Radiopharmaceutical: M49-Nnajkioqpsckoqcchf (FDG) COMPARISON: No previous FDG PET/CT available [...] it harder to evaluate (more content not included)...[facility] ClinicRadiology Study observation (narrative)[facility]+CT Guidance for localization of tumor of Skull base to mid-thigh-- W 18F-FDG IVOrdered By: Ccf Provider on 08-89-1281Hszcmhcyc ClinicUS venous duplex LE BIon 64-60-6293IU venous duplex [facility] Main [place] [id number] Ultrasound Report Signed Patient: Ofe Saravia MR#: [id number] [birth year] : 1955 Acct:[id number] Age/Sex: 69 / F ADM Date: 11/08/24 Loc: Room: Type: [facility] Attending Dr: Asya Clements JR, DO Ordering [...] David Mcclain MD11/08/2024 2:01 PM Dictation Location: [place] [address] Tech: Vicki Mauro Transcribed By: COLETTE 11/08/241400 Dictated By: David Mcclain MD 11/08/241400 Signed By: 11/08/241400[facility] Physician [facility] W Auto Differential panel (Bld)on 96-59-9136Kmxohmlxg (Bld) [#/Vol]0.04 10*3/uLNINFGood Samaritan Hospital Basophils/100 WBC (Bld)0.7 %Good Samaritan HospitalDifferential cell count method Nom (Bld)AutoCleveland ClinicEosinophils (Bld) [#/Vol]0.09 10*3/uLNINFGood Samaritan HospitalEosinophils/100 WBC (Bld)1.5 %Good Samaritan HospitalErythrocyte distribution width (RBC) [Ratio]21.3 %High11.5 - 15.0 %Good Samaritan HospitalHematocrit (Bld) [Volume fraction]34.2 %Low36.0 - 46.0 %[facility] Samaritan HospitalHemoglobin (Bld) [Mass/Vol]10.7 g/dLLow11.5 - 15.5 g/dLGood Samaritan HospitalImmature granulocytes (Bld) [#/Vol]0.03 10*3/uLNINFGood Samaritan HospitalImmature granulocytes/100 WBC (Bld) 0.5 %[facility] Samaritan HospitalInterpretation and review of laboratory resultsAbnormal Good Samaritan HospitalLymphocytes (Bld) [#/Vol]0.78 10*3/uLLowGood Samaritan Hospital Lymphocytes/100 WBC (Bld)12.9 %Good Samaritan HospitalMCH (RBC) [Entitic mass]30.1 pg 26.0 - 34.0 pgCleveland Allina Health Faribault Medical CenterMCHC (RBC) [Mass/Vol]31.3 g/dL30.5 - 36.0 g/dL [facility] HospitalV (RBC) [Entitic vol]96.3 fL80.0 - 100.0 fLCAvita Health System [facility] Monocytes (Bld) [#/Vol]0.74 10*3/uLNINFGood Samaritan HospitalMonocytes/100 WBC (Bld) 12.3 %Good Samaritan HospitalNeutrophils (Bld) [#/Vol]4.35 10*3/uLGood Samaritan Hospital Neutrophils/100 WBC (Bld)72.1 %Good Samaritan HospitalNucleated RBC (Bld) [#/Vol]NINF Good Samaritan HospitalNucleated RBC/100 WBC (Bld) [Ratio]0 %/100 WBCGood Samaritan Hospital Platelet mean volume (Bld) [Entitic vol]8.8 fLLow9.0 - 12.7 fLCAvita Health System Gal[facility] Hospital Platelets (Bld) [#/Vol]347 10*3/[facility] HospitalRBC (Bld) [#/Vol]3.55 10*6/uL Low3.90 - 5.20 m/[facility]erm[facility] HospitalWBC (Bld) [#/Vol]6.03 10*3/uLOhiohealth Grant Medical Center ClinicBasophils (Bld) [#/Vol]0.04 10*3/uLNormal<0.11[facility] on above:Order Comment: Specimen Type: BLOOD SPECIMENOrdering Facility: [facility] Address:[address] [place], [place] [address]Performed By: #### 16245-2 ####[facility] LABIA [id number] [place], [place] [address]Ontwqosyg/100 WBC (Bld)0.7 % NormalAvita Health System on above:Order Comment: Specimen Type: BLOOD SPECIMENOrdering Facility: [facility] Address:[address] [place], [place] [address]Performed By: #### 27812-3 ####[facility] LABIA [id number] [place] [address] Differential cell count method Nom (Bld)AutoNormalCSuburban Community Hospital & [facility] Comment on above:Order Comment: Specimen Type: BLOOD SPECIMENOrdering Facility: [facility] Address:[address] [place] [address] Performed By: #### 41543-9 ####[facility] LABCLIA [id number] [place], [place] [address]Goqgwroswom (Bld) [#/Vol]0.09 10*3/uLNormal<0.46[facility] on above:Order Comment: Specimen Type: BLOOD SPECIMENOrdering Facility: [facility] Address:[address] [place], [place] [address]Performed By: #### 06313-8 ####[facility] LABCLIA [id number] [place], [place] [address]Uwofabuidlr/100 WBC (Bld)1.5 %NormalAvita Health System on above:Order Comment: Specimen Type: BLOOD SPECIMENOrdering Facility: [facility] Address:[address] [place], [place] [address]Performed By: #### 76996-5 ####[facility] LABIA [id number] [place], [place] [address]Raysaruexts distribution width (RBC) [Ratio]21.3 %High11.5-15.0[facility] on above:Order Comment: Specimen Type: BLOOD SPECIMENOrdering Facility: [facility] Address:[address] [place], [place] [address]Performed By: #### 11287- 8 ####[facility] LABCLIA [id number] [place], [place] [address]Jvucgjoodl (Bld) [Volume fraction]34.2 %Low36.0-46.0 [facility] on above:Order Comment: Specimen Type: BLOOD SPECIMENOrdering Facility: [facility] Address:[address] [place], [place] [address]Performed By: #### 47472-7 ####[facility] LABCLIA [id number] [place], [place] [address]Npamjwyxnx (Bld) [Mass/Vol]10.7 g/dLLow11.5-15.5[facility] on above:Order Comment: Specimen Type: BLOOD SPECIMENOrdering Facility: [facility] Address:[address] [place], [place] [address]Performed By: #### 59542- 8 ####[facility] LABCLIA [id number] [place], [place] [address]Lblnkimb granulocytes (Bld) [#/Vol]0.03 10*3/uLNormal <0.10[facility] on above:Order Comment: Specimen Type: BLOOD SPECIMENOrdering Facility: [facility] Address:[address] [place], [place] [address]Performed By: #### 60689-0 ####[facility] LABCLIA [id number] [place], [place] [address]Cotnpvwv granulocytes/100 WBC (Bld)0.5 %NormalAvita Health System on above: Order Comment: Specimen Type: BLOOD SPECIMENOrdering Facility: [facility] Address:[address] [place], [place] [address]Performed By: #### 42816- 8 ####[facility] LABCLIA [id number] [place], [place] [address]Mwhxafmpxkd (Bld) [#/Vol]0.78 10*3/uLLow1.00-4.00 [facility] on above:Order Comment: Specimen Type: BLOOD SPECIMENOrdering Facility: [facility] Address:[address] [place], [place] [address]Performed By: #### 90263-8 ####[facility] LABIA [id number] [place], [place] [address]Lusjjttwoos/100 WBC (Bld)12.9 %NormalAvita Health System on above:Order Comment: Specimen Type: BLOOD SPECIMENOrdering Facility: [facility] Address:[address] [place], [place] [address]Performed By: #### 15377-5 ####[facility] LABCLIA [id number] [place], [place] [address]ZCY (RBC) [Entitic mass]30.1 psLiblll99.0-34.0[facility] on above:Order Comment: Specimen Type: BLOOD SPECIMENOrdering Facility: [facility] Address:[address] [place], [place] [address]Performed By: #### 05501-4 ####[facility] LABIA [id number] [place], [place] [address]STTD (RBC) [Mass/Vol]31.3 g/mEOaoiwz86.5-36.0[facility] on above: Order Comment: Specimen Type: BLOOD SPECIMENOrdering Facility: [facility] Address:[address] [place], [place] [address]Performed By: #### 62438- 8 ####[facility] LABIA [id number] [place], [place] [address]OHN (RBC) [Entitic vol]96.3 lZHkfzql28.0-100.0[facility] on above:Order Comment: Specimen Type: BLOOD SPECIMENOrdering Facility: [facility] Address:[address] [place], [place] [address]Performed By: #### 93049-5 ####[facility] LABIA [id number] [place], [place] [address]Okzpqxort (Bld) [#/Vol]0.74 10*3/uLNormal<0.87[facility] on above:Order Comment: Specimen Type: BLOOD SPECIMENOrdering Facility: [facility] Address:[address] [place], [place] [address]Performed By: #### 51939- 8 ####[facility] LABCLIA [id number] [place], [place] [address]Qnoreoivs/100 WBC (Bld)12.3 %NormalAvita Health System on above:Order Comment: Specimen Type: BLOOD SPECIMENOrdering Facility: [facility] Address:[address] [place], [place] [address]Performed By: #### 70927-2 ####[facility] LABCLIA [id number] [place], [place] [address]Nxrhttgvfsy (Bld) [#/Vol]4.35 10*3/uLNormal1.45-7.50[facility] on above:Order Comment: Specimen Type: BLOOD SPECIMENOrdering Facility: [facility] Address:[address] [place], [place] [address]Performed By: #### 61234-7 ####[facility] LABCLIA [id number] [place], [place] [address]Iuqhobvhfns/100 WBC (Bld)72.1 %NormalAvita Health System on above:Order Comment: Specimen Type: BLOOD SPECIMENOrdering Facility: [facility] Address:[address] [place], [place] [address]Performed By: #### 90832-5 ####[facility] LABCLIA [id number] [place], [place] [address]Wmwvrocyy RBC (Bld) [#/Vol] 10*3/uLNormal<0.01[facility] on above:Order Comment: Specimen Type: BLOOD SPECIMENOrdering Facility: [facility] Address:[address] [place], [place] [address]Performed By: #### 30512-3 ####[facility] LABCLIA [id number] [place], [place] [address]Ehejnbqwr RBC/100 WBC (Bld) [Ratio]0.0 /100 WBCNormal [facility] on above:Order Comment: Specimen Type: BLOOD SPECIMENOrdering Facility: [facility] Address:[address] [place], [place] [address]Performed By: #### 66257-7 ####[facility] LABCLIA [id number] [place], [place] [address]Pgwdagtz mean volume (Bld) [Entitic vol]8.8 fLLow9.0-12.7[facility] on above:Order Comment: Specimen Type: BLOOD SPECIMENOrdering Facility: [facility] Address:[address] [place], [place] [address]Performed By: #### 70440-6 ####[facility] LABCLIA [id number] [place], [place] [address]Hhiksbcqm (Bld) [#/Vol]347 10*3/dQAaiceb331-825LbgkygxtfAvita Health System on above:Order Comment: Specimen Type: BLOOD SPECIMENOrdering Facility: [facility] Address:[address] [place], [place] [address]Performed By: #### 76624-4 ####[facility] LABCLIA [id number] [place], [place] [address]VSS (Bld) [#/Vol]3.55 10*6/uLLow3.90-5.20[facility] on above:Order Comment: Specimen Type: BLOOD SPECIMENOrdering Facility: [facility] Address:[address] [place], [place] [address]Performed By: #### 88343- 8 ####[facility] LABCLIA [id number] [place], [place] [address]FZU (Bld) [#/Vol]6.03 10*3/uLNormal3.70-11.00[facility] on above:Order Comment: Specimen Type: BLOOD SPECIMENOrdering Facility: [facility] Address:[address] [place], [place] [address]Performed By: #### 59808-2 ####[facility] LABCLIA [id number] [place], [place] [address]SWMXZDnr 09-76-4203ITEVDRZnuqkfThjumeync [facility] ClevelandCNPNon 70-81-2260DRGTQbitiw [facility] Medical CenterComprehensive metabolic 2000 panelOrdered By: Ofe Luke on 41-09-6169Eoqedvh [Mass/Vol]3.9 g/dL3.9 - 4.9 g/dLClemercy health ClinicALP [Catalytic activity/Vol]102 U/L34 - 123 U/LCleveland ClinicALT [Catalytic activity/Vol]15 U/L7 - 38 U/LCleveland ClinicAnion gap [Moles/Vol]11 mmol/L8 - 15 mmol/LCleveland ClinicAST [Catalytic activity/Vol]14 U/L13 - 35 U/LCleveland ClinicBilirubin [Mass/Vol]0.2 mg/dL0.2 - 1.3 mg/dLClemercy health ClinicCalcium [Mass/Vol]9.9 mg/dL8.5 - 10.2 mg/dLNew York ClinicChloride [Moles/Vol]102 mmol/L98 - 107 mmol/LCleveland ClinicCO2 [Moles/Vol]28 mmol/L22 - 30 mmol/L [place] ClinicCreatinine [Mass/Vol]0.52 mg/dLLow0.58 - 0.96 mg/dLNew York ClinicGFR/1.73 sq M.predicted among non-blacks MDRD (S/P/Bld) [Vol rate/Area]101 mL/min/{1.73_m2}- PINFCleveland [facility] Medical CenterComment on above:Estimated Glomerular Filtration Rate (eGFR) is calculated using the 2020 CKD-EPI creatinine equation. This equation utilizes serum creatinine, sex, and age as parameters. The creatinine assay has traceable calibration to isotope dilution-mass spectrometry. Refer to KDIGO guidelines for clinical interpretation. In patients with unstable renal function, e.g. those with acute kidney injury, the eGFRmay not accurately reflect actual GFR.Glucose [Mass/Vol]109 mg/jYWatu89 - 99 mg/dL [facility] Hospitalment on above:The [place]de[place] Diabetes Association (ADA) provides guidance for cutoff [...] Standards of Medical Care in Diabetes 2016, [place] Diabetes Association. Diabetes Care. 2016.39(Suppl 1). Interpretation and review of laboratory resultsAbnormalCleveland ClinicPotassium [Moles/Vol]4.4 mmol/L3.7 - 5.1 mmol/LClevelatrium health cabarrus ClinicProtein [Mass/Vol]6.9 g/dL 6.3 - 8.0 g/dLWadsworth-Rittman Hospitalodium [Moles/Vol]141 mmol/L136 - 144 mmol/L [facility]aritan HospitalUrea nitrogen [Mass/Vol]16 mg/dL7 - 21 mg/dLRegency Hospital Cleveland EastComprehensive metabolic 2000 panelon 58-70-9963Wpytiis [Mass/Vol]3.9 g/dLNormal3.9-4.9[facility] on above:Order Comment: Specimen Type: BLOOD SPECIMENOrdering Facility: [facility] Address:[address] [place] [address]Enplgefyp By: #### 59063- 8, ####[facility] LABCLIA [id number] [place], [place] [address]DEN [Catalytic activity/Vol]102 U/NYhsnxx92-753 [facility] on above:Order Comment: Specimen Type: BLOOD SPECIMENOrdering Facility: [facility] Address:[address] [place], [place] [address]Performed By: #### 39770-5, ####[facility] LABCLIA [id number] [place], [place] [address]JSR [Catalytic activity/Vol]15 U/LNormal7-38[facility] on above:Order Comment: Specimen Type: BLOOD SPECIMENOrdering Facility: [facility] Address:[address] [place], [place] [address]Performed By: #### 21571-8, ####[facility] LABCLIA [id number] [place], [place] [address]Hmatm gap [Moles/Vol]11 mmol/LNormal8-15 [facility] on above:Order Comment: Specimen Type: BLOOD SPECIMENOrdering Facility: [facility] Address:[address] [place], [place] [address]Performed By: #### 85286-7, ####[facility] LABCLIA [id number] [place], [place] [address]PQS [Catalytic activity/Vol]14 U/AVfqpke28-61KikssvqquAvita Health System on above:Order Comment: Specimen Type: BLOOD SPECIMENOrdering Facility: [facility] Address:[address] [place], [place] [address]Performed By: #### 29651-0, ####[facility] LABCLIA [id number] [place], [place] [address]Mifwhtaen [Mass/Vol]0.2 mg/dLNormal0.2-1.3 [facility] on above:Order Comment: Specimen Type: BLOOD SPECIMENOrdering Facility: [facility] Address:[address] [place], [place] [address]Performed By: #### 97282-4, ####[facility] LABCLIA [id number] [place], [place] [address]Qiwfgou [Mass/Vol]9.9 mg/dLNormal8.5-10.2[facility] on above: Order Comment: Specimen Type: BLOOD SPECIMENOrdering Facility: [facility] Address:[address] [place], [place] [address]Performed By: #### 06958- 8, ####[facility] LABCLIA [id number] [place], [place] [address]Dubfkoic [Moles/Vol]102 mmol/JIiqcfw33-514IhbswvcleAvita Health System on above:Order Comment: Specimen Type: BLOOD SPECIMENOrdering Facility: [facility] Address:[address] [place], [place] [address]Performed By: #### 53452-6, ####[facility] LABCLIA [id number] [place], [place] [address]GX3 [Moles/Vol]28 mmol/NZohwpg62-93NawppnqkxAv[facility] Health System on above:Order Comment: Specimen Type: BLOOD SPECIMENOrdering Facility: [facility] Address:[address] [place], [place] [address]Performed By: #### 24951- 8, 28050-9 ####[facility] LABCLIA [id number] [place], [place] [address]Buwsbpqsuk [Mass/Vol]0.52 mg/dLLow0.58-0.96 [facility] on above:Order Comment: Specimen Type: BLOOD SPECIMENOrdering Facility: [facility] Address:[address] [place], [place] [address]Performed By: #### 09931-3, ####[facility] LABCLIA [id number] [place] [address] Creatinine and Glomerular filtration rate.predicted panel (S/P/Bld)101 mL/min/1.73m???Normal>=60[facility] on above:Order Comment: Specimen Type: BLOOD SPECIMENOrdering Facility: [facility] Address:[address] [place], [place] [address]Result Comment: Estimated Glomerular Filtration Rate (eGFR) is [...] not accurately reflect actual GFR.Performed By: #### 99640-6, 30497-9 ####[facility] LABCLIA [id number] [place], [place] [address]Qtsphqy [Mass/Vol]109 mg/mBVlqa77-54XclsxezxhAvita Health System on above:Order Comment: Specimen Type: BLOOD SPECIMENOrdering Facility: [facility] Address:[address] [place] [address]Sqmyvo Comment: The Prydein[place] Diabetes Association (ADA) provides guidance for cutoff [...] Standards of Medical Care in Diabetes 2016, Prydein[place] Diabetes Association. Diabetes Care. 2016.39(Suppl 1).Performed By: #### 58528- 8, ####[facility] LABCLIA [id number] [place], [place] [address]Cdxovwdml [Moles/Vol]4.4 mmol/LNormal3.7-5.1 [facility] on above:Order Comment: Specimen Type: BLOOD SPECIMENOrdering Facility: [facility] Address:[address] [place], [place] [address]Ckdcslayk By: #### 20399-7, ####[facility] LABCLIA [id number] [place], [place] [address]Mgbjsfj [Mass/Vol]6.9 g/dLNormal6.3-8.0[facility] on above:Order Comment: Specimen Type: BLOOD SPECIMENOrdering Facility: [facility] Address:[address] [place] [address]Dlijfglel By: #### 92163- 8, 87479-9 ####[facility] LABCLIA [id number] [place], [place] [address]Ctqgfi [Moles/Vol]141 mmol/IIzgglo679-241AsqmaurqnAvita Health System on above:Order Comment: Specimen Type: BLOOD SPECIMENOrdering Facility: [facility] Address:[address] [place], [place] [address]Performed By: #### 04276-1, 91469-6 ####[facility] LABCLIA [id number] [place], [place] [address]Sanm nitrogen [Mass/Vol]16 mg/dLNormal7-21[facility] on above: Order Comment: Specimen Type: BLOOD SPECIMENOrdering Facility: [facility] Address:[address] [place], [place] [address]Performed By: #### 80887- 8, ####[facility] LABCLIA [id number] [place], [place] [address]UPADZNRQIvw 60-89-9580Wpedfbiwo [Mass/Vol]1.7 mg/dL 1.7 - 2.3 mg/dLGood Samaritan HospitalMagnesium SerPl-mCncon 21-68-6163Lfwpwitsc [Mass/Vol]1.7 mg/dLNormal1.7-2.3[facility] on above:Order Comment: Specimen Type: BLOOD SPECIMENOrdering Facility: [facility] Address:[address] [place] [address]Bgigcwyba By: #### 57512- 8, 62319-9 ####[facility] LABCLIA [id number] [place], [place] [address]Pyhakgchc [Mass/Vol]on 42-51-9039Jyxsxluhtflbct and review of laboratory resultsNormalCHocking Valley Community Hospital W Auto Differential panel (Bld)on 58-03-6044Rpkrvabls (Bld) [#/Vol]0.07 10*3/uLNormal <0.11[facility] on above:Order Comment: Specimen Type: BLOOD SPECIMENOrdering Facility: [facility] Address:[address] [place], [place] [address]Performed By: #### 51723-0 ####[facility] LABCLIA [id number] [place] [address] Basophils/100 WBC (Bld)0.5 %NormalAvita Health System on above: Order Comment: Specimen Type: BLOOD SPECIMENOrdering Facility: [facility] Address:[address] [place], [place] [address]Performed By: #### 34833- 8 ####[facility] LABCLIA [id number] [place], [place] [address]Ctsvcaxthlin cell count method Nom (Bld)AutoNormal [facility] on above:Order Comment: Specimen Type: BLOOD SPECIMENOrdering Facility: [facility] Address:[address] [place], [place] [address]Performed By: #### 32603-1 ####[facility] LABCLIA [id number] [place], [place] [address]Mjsuxkxgljs (Bld) [#/Vol]0.25 10*3/uLNormal<0.46[facility] on above: Order Comment: Specimen Type: BLOOD SPECIMENOrdering Facility: [facility] Address:[address] [place], [place] [address]Performed By: #### 28169- 8 ####[facility] LABCLIA [id number] [place], [place] [address]Xgvjlvdazik/100 WBC (Bld)1.7 %NormalAvita Health System on above:Order Comment: Specimen Type: BLOOD SPECIMENOrdering Facility: [facility] Address:[address] [place], [place] [address]Performed By: #### 55279-0 ####[facility] LABIA [id number] [place], [place] [address]Musfpgarfls distribution width (RBC) [Ratio]17.8 %High11.5-15.0[facility] on above:Order Comment: Specimen Type: BLOOD SPECIMENOrdering Facility: [facility] Address:[address] [place], [place] [address]Performed By: #### 69796- 8 ####[facility] LABIA [id number] [place], [place] [address]Odhfspaspx (Bld) [Volume fraction]30.8 %Low36.0-46.0 [facility] on above:Order Comment: Specimen Type: BLOOD SPECIMENOrdering Facility: [facility] Address:[address] [place], [place] [address]Performed By: #### 06976-8 ####[facility] LABIA [id number] [place], [place] [address]Jhzugmvccq (Bld) [Mass/Vol]9.9 g/dLLow11.5-15.5[facility] on above:Order Comment: Specimen Type: BLOOD SPECIMENOrdering Facility: [facility] Address:[address] [place], [place] [address]Performed By: #### 05428- 8 ####[facility] LABIA [id number] [place], [place] [address]Zvzdlqgp granulocytes (Bld) [#/Vol]0.06 10*3/uLNormal <0.10[facility] on above:Order Comment: Specimen Type: BLOOD SPECIMENOrdering Facility: [facility] Address:[address] [place], [place] [address]Performed By: #### 29524-3 ####[facility] LABIA [id number] [place], [place] [address]Qmvjocfy granulocytes/100 WBC (Bld)0.4 %NormalAvita Health System on above: Order Comment: Specimen Type: BLOOD SPECIMENOrdering Facility: [facility] Address:[address] [place], [place] [address]Performed By: #### 56838- 8 ####[facility] LABCLIA [id number] [place], [place] [address]Wsqkegzmerd (Bld) [#/Vol]0.72 10*3/uLLow1.00-4.00 [facility] on above:Order Comment: Specimen Type: BLOOD SPECIMENOrdering Facility: [facility] Address:[address] [place], [place] [address]Performed By: #### 68651-4 ####[facility] LABCLIA [id number] [place], [place] [address]Cdzgnjclxnk/100 WBC (Bld)5.0 %NormalAvita Health System on above:Order Comment: Specimen Type: BLOOD SPECIMENOrdering Facility: [facility] Address:[address] [place], [place] [address]Performed By: #### 62543-1 ####[facility] LABCLIA [id number] [place], [place] [address]OQE (RBC) [Entitic mass]28.9 cfKkzqel14.0-34.0[facility] on above:Order Comment: Specimen Type: BLOOD SPECIMENOrdering Facility: [facility] Address:[address] [place], [place] [address]Performed By: #### 80381-0 ####[facility] LABCLIA [id number] [place], [place] [address]YNUL (RBC) [Mass/Vol]32.1 g/cCFhwlzf65.5-36.0[facility] on above: Order Comment: Specimen Type: BLOOD SPECIMENOrdering Facility: [facility] Address:[address] [place], [place] [address]Performed By: #### 37822- 8 ####[facility] LABCLIA [id number] [place], [place] [address]JWJ (RBC) [Entitic vol]90.1 lGGoqujp22.0-100.0[facility] on above:Order Comment: Specimen Type: BLOOD SPECIMENOrdering Facility: [facility] Address:[address] [place], [place] [address]Performed By: #### 46597-3 ####[facility] LABCLIA [id number] [place], [place] [address]Chhsunwol (Bld) [#/Vol]1.03 10*3/uLHigh<0.87[facility] on above:Order Comment: Specimen Type: BLOOD SPECIMENOrdering Facility: [facility] Address:[address] [place], [place] [address]Performed By: #### 31316- 8 ####[facility] LABCLIA [id number] [place], [place] [address]Aixhrbodh/100 WBC (Bld)7.2 %NormalAvita Health System on above:Order Comment: Specimen Type: BLOOD SPECIMENOrdering Facility: [facility] Address:[address] [place], [place] [address]Performed By: #### 67109-8 ####[facility] LABCLIA [id number] [place], [place] [address]Tfrigrexaxg (Bld) [#/Vol]12.23 10*3/uLHigh1.45-7.50[facility] on above:Order Comment: Specimen Type: BLOOD SPECIMENOrdering Facility: [facility] Address:[address] [place], [place] [address]Performed By: #### 24592-2 ####[facility] LABCLIA [id number] [place], [place] [address]Awfxtffcqsk/100 WBC (Bld)85.2 %NormalAvita Health System on above:Order Comment: Specimen Type: BLOOD SPECIMENOrdering Facility: [facility] Address:[address] [place], [place] [address]Performed By: #### 36028-8 ####[facility] LABCLIA [id number] [place], [place] [address]Etwxhfaqk RBC (Bld) [#/Vol] 10*3/uLNormal<0.01[facility] on above:Order Comment: Specimen Type: BLOOD SPECIMENOrdering Facility: [facility] Address:[address] [place], [place] [address]Performed By: #### 64399-7 ####[facility] LABCLIA [id number] [place], [place] [address]Bnszlimem RBC/100 WBC (Bld) [Ratio]0.0 /100 WBCNormal [facility] on above:Order Comment: Specimen Type: BLOOD SPECIMENOrdering Facility: [facility] Address:[address] [place], [place] [address]Performed By: #### 61113-1 ####[facility] LABCLIA [id number] [place], [place] [address]Edawzajk mean volume (Bld) [Entitic vol]8.9 fLLow9.0-12.7[facility] on above:Order Comment: Specimen Type: BLOOD SPECIMENOrdering Facility: [facility] Address:[address] [place], [place] [address]Performed By: #### 50003-4 ####[facility] LABCLIA [id number] [place], [place] [address]Gwszzavdl (Bld) [#/Vol]422 10*3/wKMqnf391-430YzmfeflorAvita Health System on above:Order Comment: Specimen Type: BLOOD SPECIMENOrdering Facility: [facility] Address:[address] [place], [place] [address]Performed By: #### 22232-5 ####[facility] LABCLIA [id number] [place], [place] [address]YTO (Bld) [#/Vol]3.42 10*6/uLLow3.90-5.20[facility] on above:Order Comment: Specimen Type: BLOOD SPECIMENOrdering Facility: [facility] Address:[address] [place], [place] [address]Performed By: #### 82537- 8 ####[facility] LABCLIA [id number] [place], [place] [address]VQX (Bld) [#/Vol]14.36 10*3/uLHigh3.70-11.00[facility] on above:Order Comment: Specimen Type: BLOOD SPECIMENOrdering Facility: [facility] Address:[address] [place], [place] [address]Performed By: #### 85956-3 ####[facility] LABIA [id number] [place], [place] [address]OMIXMPtm 56-63-6519VHPATZVhxfklHdyrozaod Clinic ClevelandComprehensive metabolic 2000 panelon 62-63-3152Uqwaepa [Mass/Vol]3.5 g/dLLow3.9-4.9CSuburban [facility] Comment on above:Order Comment: Specimen Type: BLOOD SPECIMENOrdering Facility: [facility] Address:[address] [place] [address] Performed By: #### 50348-8, 09176-7 ####[facility] LABCLIA [id number] [place], [place] [address]KYQ [Catalytic activity/Vol]121 U/FMklmge94-718RcyxmuvlhAvita Health System on above:Order Comment: Specimen Type: BLOOD SPECIMENOrdering Facility: [facility] Address:[address] [place], [place] [address]Performed By: #### 99063- 9, 84797-3 ####[facility] LABCLIA [id number] [place], [place] [address]BBT [Catalytic activity/Vol]33 U/LNormal7-38 [facility] on above:Order Comment: Specimen Type: BLOOD SPECIMENOrdering Facility: [facility] Address:[address] [place], [place] [address]Performed By: #### 89896-0, 20464-9 ####[facility] LABCLIA [id number] [place], [place] [address]Lxiyk gap [Moles/Vol]12 mmol/LNormal8-15[facility] on above: Order Comment: Specimen Type: BLOOD SPECIMENOrdering Facility: [facility] Address:[address] [place], [place] [address]Performed By: #### 13519- 9, 38542-1 ####[facility] LABCLIA [id number] [place], [place] [address]GEX [Catalytic activity/Vol]15 U/ZZuvpav39-57 [facility] on above:Order Comment: Specimen Type: BLOOD SPECIMENOrdering Facility: [facility] Address:[address] [place], [place] [address]Performed By: #### 89577-4, 68017-9 ####[facility] LABCLIA [id number] [place] [address] Bilirubin [Mass/Vol]0.5 mg/dLNormal0.2-1.3[facility] on above:Order Comment: Specimen Type: BLOOD SPECIMENOrdering Facility: [facility] Address:[address] [place], [place] [address]Performed By: #### 10510-8, 41766-6 ####[facility] LABCLIA [id number] [place], [place] [address]Jyfgqwp [Mass/Vol]9.1 mg/dLNormal8.5-10.2 [facility] on above:Order Comment: Specimen Type: BLOOD SPECIMENOrdering Facility: [facility] Address:[address] [place], [place] [id number] By: #### 06523-1, 72564-8 ####[facility] LABCLIA [id number] [place], [place] [address]Msfalpiu [Moles/Vol]97 mmol/WJxr15-031ShdmahbihAvita Health System on above:Order Comment: Specimen Type: BLOOD SPECIMENOrdering Facility: [facility] Address:[address] [place], [place] [address]Performed By: #### 23000- 9, 66552-5 ####[facility] LABCLIA [id number] [place], [place] [address]CM9 [Moles/Vol]26 mmol/WIcvzeg35-62JjfhyyjmgAvita Health System on above:Order Comment: Specimen Type: BLOOD SPECIMENOrdering Facility: [facility] Address:[address] [place], [place] [address]Performed By: #### 20262-8, 62491-3 ####[facility] LABCLIA [id number] [place], [place] [address]Vflomusgfk [Mass/Vol] 0.52 mg/dLLow0.58-0.96[facility] on above:Order Comment: Specimen Type: BLOOD SPECIMENOrdering Facility: [facility] Address:[address] [place], [place] [address]Performed By: #### 16559-9, 47863-5 ####[facility] LABCLIA [id number] [place], [place] [address]Sjaeallppk and Glomerular filtration rate.predicted panel (S/P/Bld)101 mL/min/1.73m???Normal>=60[facility] on above:Order Comment: Specimen Type: BLOOD SPECIMENOrdering Facility: [facility] Address:[address] [place], [place] [id number] Comment: Estimated Glomerular Filtration Rate (eGFR) is [...] not accurately reflect actual GFR.Performed By: #### 80085-4, 06666-2 ####[facility] LABCLIA [id number] [place], [place] [address]Cwuoesf [Mass/Vol]127 mg/cPPkit74-38BqerdmgyjAvita Health System on above:Order Comment: Specimen Type: BLOOD SPECIMENOrdering Facility: [facility] Address:[address] [place] [id number] Comment: The [place] [employer] (ADA) provides guidance for cutoff [...] Standards of Medical Care in Diabetes 2016, [place] [employer]. Diabetes Care. 2016.39(Suppl 1).Performed By: #### 21298- 9, 63096-4 ####[facility] LABCLIA [id number] [place], [place] [address] [Moles/Vol]4.1 mmol/LNormal3.7-5.1 [facility] on above:Order Comment: Specimen Type: BLOOD SPECIMENOrdering Facility: [facility] Address:[address] [place], [place] [address]Ewxroypqs By: #### 98673-3, 23749-4 ####[facility] LABCLIA [id number] [place], [place] [address]Dtyxsmr [Mass/Vol]7.1 g/dLNormal6.3-8.0[facility] on above:Order Comment: Specimen Type: BLOOD SPECIMENOrdering Facility: [facility] Address:[address] [place], [place] [address]Performed By: #### 39514- 9, 67904-1 ####[facility] LABCLIA [id number] [place], [place] [address]Asdjff [Moles/Vol]135 mmol/NJol173-796QajrkhlbvAvita Health System on above:Order Comment: Specimen Type: BLOOD SPECIMENOrdering Facility: [facility] Address:[address] [place], [place] [address]Performed By: #### 64312-0, 86496-0 ####[facility] LABCLIA [id number] [place], [place] [address]Jyhn nitrogen [Mass/Vol]13 mg/dLNormal7-21[facility] on above: Order Comment: Specimen Type: BLOOD SPECIMENOrdering Facility: [facility] Address:[address] [place], [place] [address]Performed By: #### 90119- 9, 14835-4 ####[facility] LABIA [id number] [place], [place] [address]Ywluktbpn SerPl-mCncon 30-66-5482Uzpozdpkk [Mass/Vol]1.7 mg/dLNormal1.7-2.3[facility] on above:Order Comment: Specimen Type: BLOOD SPECIMENOrdering Facility: [facility] Address:[address] [place], [place] [address]Performed By: #### 23684- 9, 40852-6 ####[facility] LABIA [id number] [place], [place] [address]YOY SerPl-aCncon 39-67-7482MUP Qn1.300 m[IU]/L Normal0.270-4.200[facility] on above:Order Comment: Specimen Type: BLOOD SPECIMENOrdering Facility: [facility] Address:[address] [place], [place] [address]Performed By: #### 3016-3 ####[facility] LABORATORYCLIA [id number] [place] [address] [place] OF AMERICACNPNon 53-36-2000JQBYDdslczUlmstbkrh [facility] CNPNon 38-31-0959XNPPZoyvbyHcxtevjse Clinic ClevelandCNOVon 15-99-1125OGIUCktcmc [facility] Medical CenterCB W Auto Differential panel (Bld)on 09-22-2024 Anisocytosis Ql (Bld)PresentNormalCSCCI Hospital [facility] on above: Order Comment: Specimen Type: BLOOD SPECIMENOrdering Facility: [facility] Address:[address] [place], [place] [address]Performed By: #### 03865- 8 ####[facility] LABCLIA [id number] [address] LABCLIA [id number] [place] [address] [place] OF AMERICABasophils (Bld) [#/Vol]0.00 10*3/uLNormal<0.11[facility] on above:Order Comment: Specimen Type: BLOOD SPECIMENOrdering Facility: [facility] Address:[address] [place], [place] [address]Performed By: #### 65605- 8 ####[facility] LABCLIA [id number] [address] LABCLIA [id number] [place] [address] [place] AMERICABasophils/100 WBC (Bld)0.0 %NormalAvita Health System on above:Order Comment: Specimen Type: BLOOD SPECIMENOrdering Facility: [facility] Address:[address] [place], [place] [address]Performed By: #### 25916-0 ####[facility] LABCLIA [id number] [place], [place] [address] LABCLIA [id number] [place] [id number] [place] OF AMERICADifferential cell count method Nom (Bld)ManualNormalCSuburban Community Hospital & Brentwood HospitalComstraith hospital for special surgery on above:Order Comment: Specimen Type: BLOOD SPECIMENOrdering Facility: [facility] Address:[address] [place], [place] [address]Performed By: #### 75819-6 ####[facility] LABCLIA [id number] [address] LABCLIA [id number] [place] [address] [place] AMERICAEosinophils (Bld) [#/Vol]0.18 10*3/uLNormal<0.46[facility] Medical CenterComstraith hospital for special surgery on above: Order Comment: Specimen Type: BLOOD SPECIMENOrdering Facility: [facility] Address:[address] [place], [place] [address]Performed By: #### 73985- 8 ####[facility] LABCLIA [id number] [address] LABCLIA [id number] [place] [address] [place] AMERICAEosinophils/100 WBC (Bld)1.8 %NormalOhiohealth Grant Medical CenterComstraith hospital for special surgery on above:Order Comment: Specimen Type: BLOOD SPECIMENOrdering Facility: [facility] Address:[address] [place], [place] [address]Performed By: #### 79699-9 ####[facility] LABCLIA [id number] [address] LABCLIA [id number] [place] [address] [place] AMERICAErythrocyte distribution width (RBC) [Ratio]15.0 %Vypbsv13.5-15.0[facility] Comment on above:Order Comment: Specimen Type: BLOOD SPECIMENOrdering Facility: [facility] Address:[address] [place] [address] Performed By: #### 91523-4 ####[facility] LABIA [id number] [place] [address] LABCLIA [id number] [place] [address] [place] OF AMERICAHematocrit (Bld) [Volume fraction]31.7 %Low36.0-46.0[facility] on above:Order Comment: Specimen Type: BLOOD SPECIMENOrdering Facility: [facility] Address:[address] [place], [place] [address]Performed By: #### 89747-3 ####[facility] LABIA [id number] [address] LABIA [id number] [place] [address] [place] AMERICAHemoglobin (Bld) [Mass/Vol]10.0 g/dLLow11.5-15.5[facility] on above:Order Comment: Specimen Type: BLOOD SPECIMENOrdering Facility: [facility] Address:[address] [place], [place] [address]Performed By: #### 62823-2 ####[facility] LABIA [id number] [address] LABCLIA [id number] [place] [address] [place] OF AMERICALymphocytes (Bld) [#/Vol]0.52 10*3/uLLow1.00-4.00[facility] on above:Order Comment: Specimen Type: BLOOD SPECIMENOrdering Facility: [facility] Address:[address] [place], [place] [address]Performed By: #### 65949-3 ####[facility] LABCLIA [id number] [place] [id number] LABCLIA [id number] [place] [id number] [place] [facility] COMM[facility]ITY HOSPITALLymphocytes/100 WBC (Bld)5.3 %NormalAvita Health System on above:Order Comment: Specimen Type: BLOOD SPECIMENOrdering Facility: [facility] Address:[address] [place], [place] [address]Performed By: #### 86856-1 ####[facility] LABCLIA [id number] [address] LABCLIA [id number] [address] STATES [facility] (RBC) [Entitic mass]28.4 heUobgws27.0-34.0[facility] on above: Order Comment: Specimen Type: BLOOD SPECIMENOrdering Facility: [facility] Address:[address] [place], [place] [address]Performed By: #### 65328- 8 ####[facility] LABCLIA [id number] [address] LABCLIA [id number] [address] STATES HC (RBC) [Mass/Vol]31.5 g/uNRozupa46.5-36.0[facility] on above: Order Comment: Specimen Type: BLOOD SPECIMENOrdering Facility: [facility] Address:[address] [place], [place] [address]Performed By: #### 87428- 8 ####[facility] LABCLIA [id number] [address] LABCLIA [id number] [place] [id number] [place] V (RBC) [Entitic vol]90.1 tNQkeyjp56.0-100.0[facility] on above: Order Comment: Specimen Type: BLOOD SPECIMENOrdering Facility: [facility] Address:[address] [place], [place] [address]Performed By: #### 31573- 8 ####[facility] LABCLIA [id number] [place] [id number] LABCLIA [id number] [place] [address] [place] OF AMERICAMonocytes (Bld) [#/Vol]0.26 10*3/uLNormal<0.87[facility] on above:Order Comment: Specimen Type: BLOOD SPECIMENOrdering Facility: [facility] Address:[address] [place], [place] [address]Performed By: #### 09533- 8 ####[facility] LABCLIA [id number] [address] LABCLIA [id number] [place] [address] [place] AMERICAMonocytes/100 WBC (Bld)2.6 %NormalAvita Health System on above:Order Comment: Specimen Type: BLOOD SPECIMENOrdering Facility: [facility] Address:[address] [place], [place] [address]Performed By: #### 37749-7 ####[facility] LABCLIA [id number] [address] LABCLIA [id number] [place] [address] [place] AMERICANeutrophils (Bld) [#/Vol]8.89 10*3/uLHigh1.45-7.50[facility] on above:Order Comment: Specimen Type: BLOOD SPECIMENOrdering Facility: [facility] Address:[address] [place], [place] [address]Performed By: #### 06116-6 ####[facility] LABCLIA [id number] [place] [id number] LABCLIA [id number] [address] [address] [place] OF AMERICANeutrophils/100 WBC (Bld)90.3 %NormalAvita Health System on above:Order Comment: Specimen Type: BLOOD SPECIMENOrdering Facility: [facility] Address:[address] [place], [place] [address]Performed By: #### 66214-2 ####[facility] LABCLIA [id number] [address] LABCLIA [id number] [place] [address] [place] AMERICANucleated RBC (Bld) [#/Vol]10*3/uLNormal<0.01[facility] on above:Order Comment: Specimen Type: BLOOD SPECIMENOrdering Facility: [facility] Address:[address] [place], [place] [address]Performed By: #### 84675- 8 ####[facility] LABCLIA [id number] [address] LABCLIA [id number] [place] [address] [place] AMERICANucleated RBC/100 WBC (Bld) [Ratio]0.0 /100 WBCNormPeoples Hospital on above:Order Comment: Specimen Type: BLOOD SPECIMENOrdering Facility: [facility] Address:[address] [place], [place] [address]Performed By: #### 77782-2 ####[facility] LABCLIA [id number] [address] LABCLIA [id number] [place] [id number] [place] OF AMERICAOvalocytes LM Ql (Bld)FewNormalCSCCI Hospital [facility] on above:Order Comment: Specimen Type: BLOOD SPECIMENOrdering Facility: [facility] Address:[address] [place], [place] [address]Performed By: #### 99660-0 ####[facility] LABCLIA [id number] [place] [id number] LABCLIA [id number] [address] [address] [place] OF AMERICAPlatelet mean volume (Bld) [Entitic vol]10.8 fLNormal9.0-12.7CSuburban Community Hospital & Brentwood HospitalComstraith hospital for special surgery on above:Order Comment: Specimen Type: BLOOD SPECIMENOrdering Facility: [facility] Address:[address] [place] [address] Performed By: #### 17517-5 ####[facility] LABCLIA [id number] [address] LABCLIA [id number] [place] [address] [place] AMERICAPlatelets (Bld) [#/Vol]229 10*3/dPClhnaq143-269AkzimgzzhOhiohealth Grant Medical Center Comment on above:Order Comment: Specimen Type: BLOOD SPECIMENOrdering Facility: [facility] Address:[address] [place], [place] [address]Result Comment: Results checked and verified.No clot detected.Performed By: #### 09388- 8 ####[facility] LABCLIA [id number] [address] LABCLIA [id number] [address] [address] [place] OF AMERICAPlatelets Estimate (Bld) [#/Vol]AdequateNormalCSuburban Community Hospital & Brentwood HospitalComstraith hospital for special surgery on above: Order Comment: Specimen Type: BLOOD SPECIMENOrdering Facility: [facility] Address:[address] [place], [place] [address]Performed By: #### 55160- 8 ####[facility] LABCLIA [id number] [address] LABCLIA [id number] [address] [place] [address] [place] AMERICAPolychromasia LM Ql (Bld)SlightTrinity Health System on above:Order Comment: Specimen Type: BLOOD SPECIMENOrdering Facility: [facility] Address:[address] [place], [place] [address]Performed By: #### 66570-9 ####[facility] LABCLIA [id number] [place] [id number] LABCLIA [id number] [address] [place] [address] [place] AMERICARBC (Bld) [#/Vol]3.52 10*6/uLLow3.90-5.20[facility] on above:Order Comment: Specimen Type: BLOOD SPECIMENOrdering Facility: [facility] Address:[address] [place], [place] [address]Performed By: #### 61899- 8 ####[facility] LABCLIA [id number] [place] [id number] LABCLIA [id number] [address], [facility]95 [place] OF AMERICARED CELL MORPH Reviewed: see results of individual morphologiesKettering Memorial Hospital Comment on above:Order Comment: Specimen Type: BLOOD SPECIMENOrdering Facility: [facility] Address:[address] [place] [address] Performed By: #### 66568-8 ####[facility] LABCLIA [id number] [place] [id number] LABCLIA [id number] [address] [place] [address] [place] AMERICAWBC (Bld) [#/Vol]9.84 10*3/uLNormal3.70-11.00[facility] Comment on above:Order Comment: Specimen Type: BLOOD SPECIMENOrdering Facility: [facility] Address:[address] [place], [place] [address]Result Comment: Results checked and verified.No clot detected.Performed By: #### 02046- 8 ####[facility] LABCLIA [id number] [place], [place] [address]VJNTVLNXJADAMS [facility] LABCLIA [id number] [place] [id number] [place] OF AMERICACNOVSPon 14-89-3235FRKBHYUtkwiuYqadisuvb Clinic ClevelandComprehensive metabolic 2000 panelon 16-57-9135Xpbrprd [Mass/Vol]3.1 g/dLLow3.9-4.9CSuburban Community Hospital & [facility] Comment on above:Order Comment: Specimen Type: BLOOD SPECIMENOrdering Facility: [facility] Address:[address] [place] [address] Performed By: #### 58592-0 ####[facility] LABCLIA [id number] [place], [place] [address]XDE [Catalytic activity/Vol]188 U/KJmmu69-817HuqhccktuOhiohealth Grant Medical CenterComstraith hospital for special surgery on above:Order Comment: Specimen Type: BLOOD SPECIMENOrdering Facility: [facility] Address:[address] [place], [place] [address]Performed By: #### 11679-1 ####[facility] LABCLIA [id number] [place] [address] ALT [Catalytic activity/Vol]70 U/LHigh7-38[facility] CenterComstraith hospital for special surgery on above:Order Comment: Specimen Type: BLOOD SPECIMENOrdering Facility: [facility] Address:[address] [place], [place] [address]Performed By: #### 38167-2 ####[facility] LABIA [id number] [place], [place] [address]Rfsaf gap [Moles/Vol]11 mmol/LNormal8-15[facility] CenterComstraith hospital for special surgery on above:Order Comment: Specimen Type: BLOOD SPECIMENOrdering Facility: [facility] Address:[address] [place], [place] [address]Performed By: #### 66060-5 ####[facility] LABCLIA [id number] GAURAVRY MAXIMAMADEOTUBA CITY REGIONAL HEALTH CARE CORPORATIONKASEYCENTER POINT, [place] [address]HCL [Catalytic activity/Vol]44 U/WTzbx25-94RpxbuthbxAvita Health System on above:Order Comment: Specimen Type: BLOOD SPECIMENOrdering Facility: [facility] Address:[address] [place], [place] [address]Performed By: #### 83247-1 ####[facility] LABCLIA [id number] [facility] [place] [address] Bilirubin [Mass/Vol]0.3 mg/dLNormal0.2-1.3[facility] on above:Order Comment: Specimen Type: BLOOD SPECIMENOrdering Facility: [facility] Address:[address] [place], [place] [address]Performed By: #### 52459-8 ####[facility] LABCLIA [id number] GAURAV MAXIMAMADEOD[place], [place] [address]Bxdnlmn [Mass/Vol]9.0 mg/dLNormal8.5-10.2[facility] on above:Order Comment: Specimen Type: BLOOD SPECIMENOrdering Facility: [facility] Address:[address] [place], [place] [address]Performed By: #### 14505-0 ####[facility] LABCLIA [id number] [place], [place] [address]Dnyhgxxt [Moles/Vol]97 mmol/DPwp95-534XdnoekpmnAvita Health System on above:Order Comment: Specimen Type: BLOOD SPECIMENOrdering Facility: [facility] Address:[address] [place], [place] [address]Performed By: #### 47536- 8 ####[facility] LABCLIA [id number] [place], [place] [address]TL1 [Moles/Vol]29 mmol/JYygayv80-87UzdmqpffaAvita Health System on above:Order Comment: Specimen Type: BLOOD SPECIMENOrdering Facility: [facility] Address:[address] [place], [place] [address]Performed By: #### 95986-8 ####[facility] LABCLIA [id number] [place], [place] [address]Qmxwdblqcc [Mass/Vol]0.52 mg/dL Low0.58-0.96[facility] on above:Order Comment: Specimen Type: BLOOD SPECIMENOrdering Facility: [facility] Address:[address] [place], [place] [address]Performed By: #### 33664-9 ####[facility] LABIA [id number] [place] [address] Creatinine and Glomerular filtration rate.predicted panel (S/P/Bld)102 mL/min/1.73m???Normal>=60[facility] on above:Order Comment: Specimen Type: BLOOD SPECIMENOrdering Facility: [facility] Address:[address] [place], [place] [address]Result Comment: Estimated Glomerular Filtration Rate (eGFR) is [...] not accurately reflect actual GFR.Performed By: #### 53177-4 ####[facility] LABCLIA [id number] [place], [place] [address]Iccdabh [Mass/Vol]142 mg/rYQwtr84-48HhjjrbhceAvita Health System on above:Order Comment: Specimen Type: BLOOD SPECIMENOrdering Facility: [facility] Address:[address] [place], [place] [address]Result Comment: The [place] Diabetes Association (ADA) provides guidance for cutoff [...] Standards of Medical Care in Diabetes 2016, [place] Diabetes Association. Diabetes Care. 2016.39(Suppl 1).Performed By: #### 85528-8 ####[facility] LABCLIA [id number] [place], [place] [address]Ltvrohbaf [Moles/Vol]4.2 mmol/LNormal3.7-5.1[facility] on above:Order Comment: Specimen Type: BLOOD SPECIMENOrdering Facility: [facility] Address:[address] [place], [place] [address]Performed By: #### 11366-6 ####[facility] LABCLIA [id number] [place], [place] [address]Dpgqshz [Mass/Vol]6.5 g/dLNormal6.3-8.0[facility] on above:Order Comment: Specimen Type: BLOOD SPECIMENOrdering Facility: [facility] Address:[address] [place], [place] [address]Performed By: #### 21818- 8 ####[facility] LABCLIA [id number] [place], [place] [address]Iiluty [Moles/Vol]137 mmol/UKyucsy503-928BkvotukwaAvita Health System on above:Order Comment: Specimen Type: BLOOD SPECIMENOrdering Facility: [facility] Address:[address] [place], [place] [address]Performed By: #### 31417-5 ####[facility] LABCLIA [id number] [place], [place] [address]Tprg nitrogen [Mass/Vol]13 mg/dLNormal7-21[facility] on above:Order Comment: Specimen Type: BLOOD SPECIMENOrdering Facility: [facility] Address:[address] [place], [place] [address]Performed By: #### 58505-4 ####[facility] LABCLIA [id number] [place], [place] [address]Ydickool SerPl-mCncon 99-42-9384Vphodhgu [Mass/Vol]3857.0 ng/nOHumk30.7-205.1[facility] on above:Order Comment: Specimen Type: BLOOD SPECIMENOrdering Facility: [facility] Address:[address] [place], [place] [address]Performed By: #### 49716-5, 4542-7, 2276-4 ####[facility] LABCLIA [id number] [place] [address] [place] AMERICAFolate SerPl-mCncon 09-22-2024 Folate [Mass/Vol]12.3 ng/mLNormal>4.7[facility] on above: Order Comment: Specimen Type: BLOOD SPECIMENOrdering Facility: [facility] Address:[address] [place], [place] [address]Performed By: #### 2132- 9, 2284-8 ####[facility] LABCLIA [id number] [facility] [place] [address] [place] AMERICAHaptoglob SerPl-mCncon 21-01-0236Qozhwnqyous [Mass/Vol]547 mg/xNLgzl06-100AquiupkvgOhiohealth Grant Medical Center Comment on above:Order Comment: Specimen Type: BLOOD SPECIMENOrdering Facility: [facility] Address:[address] [place] [address] Performed By: #### 59338-2, 4542-7, 6-4 ####[facility] LABCLIA [id number] [place] [address] [place] AMERICAIron and Iron binding capacity panelon 99-73-8907Dgfg [Mass/Vol]26 ug/dL Mrf04-798JqgpdnngeAvita Health System on above:Order Comment: Specimen Type: BLOOD SPECIMENOrdering Facility: [facility] Address:[address] [place], [place] [address]Performed By: #### 32613-8, 4542-7, 6-4 ####[facility] LABCLIA [id number] [place] [id number] [place] OF AMERICAIron binding capacity [Mass/Vol] 207 ug/[id number] Health System on above:Order Comment: Specimen Type: BLOOD SPECIMENOrdering Facility: [facility] Address:[address] [place], [place] [address]Performed By: #### 56790-3, 4542-7, 6-4 ####[facility] LABCLIA [id number] [place] [id number] [place] AMERICAIron/TIBC [Molar ratio]12.6 %Low 15.0-57.0[facility] on above:Order Comment: Specimen Type: BLOOD SPECIMENOrdering Facility: [facility] Address:[address] [place], [place] [id number] By: #### 82211-3, 4542-7, 6-4 ####[facility] LABCLIA [id number] [place] [id number] [place] AMERICAKAPPA/MEHTA,FREE,SERon 09-22-2024 Immunoglobulin light chains.kappa.free (S) [Mass/Vol]18.0 mg/LNormal3.3-19.4 [facility] on above:Order Comment: Specimen Type: BLOOD SPECIMENOrdering Facility: [facility] Address:[address] [place], [place] [id number] Comment: Rarely, increased serum free light chains levels may not be detected or accurately quantified due to prozone phenomenon or in high viscosity samples using this immunoturbidimetric assay. Correlation with other laboratory results and clinical findings is recommended.The [place] Free Light Chain was performed using the Binding Site Optilite immunoturbidimetric method. Result obtained with different assay methods or kits cannot be used interchangeably.Performed By: #### KLFRS ####[facility] LABCLIA [id number] [place] [address] [place] AMERICAImmunoglobulin light chains.kappa/Immunoglobulin light chains.lambda (S) [Mass ratio]1.68Kyvjij7.26-1.65[facility] Comment on above:Order Comment: Specimen Type: BLOOD SPECIMENOrdering Facility: SELECT [facility] Address:[address] [place] [address] Performed By: #### KLFRS ####[facility]ITAL[facility] [id number] [place] [address] [place] OF AMERICAImmunoglobulin light chains.lambda.free [Mass/Vol]15.6 mg/LNormal5.7-26.3[facility] on above:Order Comment: Specimen Type: BLOOD SPECIMENOrdering Facility: [facility] Address:[address] [place], [place] [address]Result Comment: Rarely, increased serum free light chains [...] cannot be used interchangeably.Performed By: #### KLFRS ####[facility] LABIA [id number] [place] [address] UNITED STATES OF AMERICAVit B12 SerPl-mCncon 29-31-0834Zqilhuams (Vitamin B12) [Mass/Vol]pg/mL Oinp739-7034KdvtdsdchSCCI Hospital [facility] on above:Order Comment: Specimen Type: BLOOD SPECIMENOrdering Facility: [facility] Address:[address] [place], [place] [address]Performed By: #### 2132-9, 2284-8 ####[facility] LABCLIA [id number] [facility] [id number] [place], [place] [id number] [place] OF AMERICACNPNon 90-48-5573ELSSVotzydObpesrgdb Clinic ClevelandCNPNon 78-84-4541YOGQWwgroqEefbohigv Clinic ClevelandCB W Auto Differential panel (Bld)on 50-38-3149Kdyrqsfyc (Bld) [#/Vol]0.04 10*3/uLNormal <0.11[facility] on above:Order Comment: Specimen Type: BLOOD SPECIMENOrdering Facility: [facility] Address:[address] [place], [place] [address]Performed By: #### 24893-1 ####[facility] LABCLIA [id number] [place] [address] Basophils/100 WBC (Bld)0.3 %NormalAvita Health System on above: Order Comment: Specimen Type: BLOOD SPECIMENOrdering Facility: [facility] Address:[address] [place], [place] [address]Performed By: #### 22596- 8 ####[facility] LABCLIA [id number] [place], [place] [address]Jefmzdpyduil cell count method Nom (Bld)AutoNormal [facility] on above:Order Comment: Specimen Type: BLOOD SPECIMENOrdering Facility: [facility] Address:[address] [place], [place] [address]Performed By: #### 48108-2 ####[facility] LABCLIA [id number] [place], [place] [address]Cwaabewmflf (Bld) [#/Vol]0.08 10*3/uLNormal<0.46[facility] on above: Order Comment: Specimen Type: BLOOD SPECIMENOrdering Facility: [facility] Address:[address] [place], [place] [address]Performed By: #### 93731- 8 ####[facility] LABCLIA [id number] [place], [place] [address]Nbvsdxlfuyn/100 WBC (Bld)0.6 %NormalAvita Health System on above:Order Comment: Specimen Type: BLOOD SPECIMENOrdering Facility: [facility] Address:[address] [place], [place] [address]Performed By: #### 81067-1 ####[facility] LABIA [id number] [place], [place] [address]Nvdjjogymtu distribution width (RBC) [Ratio]14.6 %Qjyfka07.5-15.0[facility] on above: Order Comment: Specimen Type: BLOOD SPECIMENOrdering Facility: [facility] Address:[address] [place], [place] [address]Performed By: #### 19005- 8 ####[facility] [id number] [place], [place] [address]Thdwgecnio (Bld) [Volume fraction]29.0 %Low36.0-46.0 [facility] on above:Order Comment: Specimen Type: BLOOD SPECIMENOrdering Facility: [facility] Address:[address] [place], [place] [address]Performed By: #### 40913-4 ####[facility] LABIA [id number] [place], [place] [address]Zxznmmqpiz (Bld) [Mass/Vol]9.1 g/dLLow11.5-15.5[facility] on above:Order Comment: Specimen Type: BLOOD SPECIMENOrdering Facility: [facility] Address:[address] [place], [place] [address]Performed By: #### 92027- 8 ####[facility] LABIA [id number] [place], [place] [address]Cymidyxq granulocytes (Bld) [#/Vol]0.15 10*3/uLHigh<0.10 [facility] on above:Order Comment: Specimen Type: BLOOD SPECIMENOrdering Facility: [facility] Address:[address] [place], [place] [address]Performed By: #### 22208-7 ####[facility] LABIA [id number] [place], [place] [address]Qbycmexo granulocytes/100 WBC (Bld)1.1 %NormalAvita Health System on above: Order Comment: Specimen Type: BLOOD SPECIMENOrdering Facility: [facility] Address:[address] [place], [place] [address]Performed By: #### 54996- 8 ####[facility] LABCLIA [id number] [place], [place] [address]Jdktybzbjir (Bld) [#/Vol]0.49 10*3/uLLow1.00-4.00 [facility] on above:Order Comment: Specimen Type: BLOOD SPECIMENOrdering Facility: [facility] Address:[address] [place], [place] [address]Performed By: #### 86455-9 ####[facility] LABIA [id number] [place], [place] [address]Wgrghfzfixj/100 WBC (Bld)3.7 %NormalAvita Health System on above:Order Comment: Specimen Type: BLOOD SPECIMENOrdering Facility: [facility] Address:[address] [place], [place] [address]Performed By: #### 20092-2 ####[facility] LABIA [id number] [place], [place] [address]LHE (RBC) [Entitic mass]28.4 hhWzuwzr74.0-34.0[facility] on above:Order Comment: Specimen Type: BLOOD SPECIMENOrdering Facility: [facility] Address:[address] [place], [place] [address]Performed By: #### 79208-8 ####[facility] LABIA [id number] [place], [place] [address]TMCC (RBC) [Mass/Vol]31.4 g/rXRjgral44.5-36.0[facility] on above: Order Comment: Specimen Type: BLOOD SPECIMENOrdering Facility: [facility] Address:[address] [place], [place] [address]Performed By: #### 75088- 8 ####[facility] LABCLIA [id number] [place], [place] [address]ZHP (RBC) [Entitic vol]90.6 bVJcfoqj93.0-100.0[facility] on above:Order Comment: Specimen Type: BLOOD SPECIMENOrdering Facility: [facility] Address:[address] [place], [place] [address]Performed By: #### 97509-3 ####[facility] LABCLIA [id number] [place], [place] [address]Rkxifqxau (Bld) [#/Vol]0.72 10*3/uLNormal<0.87[facility] on above:Order Comment: Specimen Type: BLOOD SPECIMENOrdering Facility: [facility] Address:[address] [place], [place] [address]Performed By: #### 02824- 8 ####[facility] LABCLIA [id number] [place], [place] [address]Erfprorrk/100 WBC (Bld)5.4 %NormalAvita Health System on above:Order Comment: Specimen Type: BLOOD SPECIMENOrdering Facility: [facility] Address:[address] [place], [place] [address]Performed By: #### 82449-7 ####[facility] LABCLIA [id number] [place], [place] [address]Olviatuobeo (Bld) [#/Vol]11.77 10*3/uLHigh1.45-7.50[facility] on above:Order Comment: Specimen Type: BLOOD SPECIMENOrdering Facility: [facility] Address:[address] [place], [place] [address]Performed By: #### 94096-9 ####[facility] LABCLIA [id number] [place], [place] [address]Vgcvkxskbmm/100 WBC (Bld)88.9 %NormalAvita Health System on above:Order Comment: Specimen Type: BLOOD SPECIMENOrdering Facility: [facility] Address:[address] [place], [place] [address]Performed By: #### 97117-7 ####[facility] LABCLIA [id number] [place], [place] [address]Mltyatyyr RBC (Bld) [#/Vol] 10*3/uLNormal<0.01[facility] on above:Order Comment: Specimen Type: BLOOD SPECIMENOrdering Facility: [facility] Address:[address] [place], [place] [address]Performed By: #### 44531-3 ####[facility] LABIA [id number] [place], [place] [address]Gnnjtlogz RBC/100 WBC (Bld) [Ratio]0.0 /100 WBCNormal [facility] on above:Order Comment: Specimen Type: BLOOD SPECIMENOrdering Facility: [facility] Address:[address] [place], [place] [address]Performed By: #### 08304-3 ####[facility] LABIA [id number] [place], [place] [address]Wcgstplg mean volume (Bld) [Entitic vol]9.2 fLNormal9.0-12.7[facility] on above:Order Comment: Specimen Type: BLOOD SPECIMENOrdering Facility: [facility] Address:[address] [place] [address] Performed By: #### 48903-3 ####[facility] LABIA [id number] [place], [place] [address]Hxndtibhz (Bld) [#/Vol]460 10*3/eWQuyj032-017NrekzeocyAvita Health System on above:Order Comment: Specimen Type: BLOOD SPECIMENOrdering Facility: [facility] Address:[address] [place], [place] [address]Performed By: #### 57273-3 ####[facility] LABCLIA [id number] [place], [place] [address]MGC (Bld) [#/Vol]3.20 10*6/uLLow3.90-5.20[facility] on above:Order Comment: Specimen Type: BLOOD SPECIMENOrdering Facility: [facility] Address:[address] [place], [place] [address]Performed By: #### 66153-2 ####[facility] LABIA [id number] [place], [place] [address]BXB (Bld) [#/Vol]13.25 10*3/uL High3.70-11.00[facility] on above:Order Comment: Specimen Type: BLOOD SPECIMENOrdering Facility: [facility] Address:[address] [place], [place] [address]Performed By: #### 60787-6 ####[facility] LABCLIA [id number] [place] [address] CNOVSPon 67-40-9710MANCMLRrmnyhSfjebwxao Clinic ClevelandComprehensive metabolic 2000 panelon 12-99-0854Vqrvnmq [Mass/Vol]2.8 g/dLLow3.9-4.9[facility] on above:Order Comment: Specimen Type: BLOOD SPECIMENOrdering Facility: [facility] Address:[address] [place], [place] [address]Performed By: #### 55690-0, 12754-9 ####[facility] LABCLIA [id number] [place], [place] [address]EGX [Catalytic activity/Vol]102 U/VJfvywt20-438DgdvzcagnAvita Health System on above:Order Comment: Specimen Type: BLOOD SPECIMENOrdering Facility: [facility] Address:[address] [place], [place] [address]Performed By: #### 19572- 8, ####[facility] LABCLIA [id number] [facility] JOSETUBA CITY REGIONAL HEALTH CARE CORPORATIONKASEY [place] [address]OUL [Catalytic activity/Vol]46 U/LHigh7-38[facility] on above:Order Comment: Specimen Type: BLOOD SPECIMENOrdering Facility: [facility] Address:[address] [place], [place] [address]Performed By: #### 97101-6, ####[facility] LONGORIAUSKY [facility] LABCLIA [id number] [facility] [place], [place] [address]Gasab gap [Moles/Vol]10 mmol/LNormal8-15[facility] on above: Order Comment: Specimen Type: BLOOD SPECIMENOrdering Facility: [facility] Address:[address] [place], [place] [address]Performed By: #### 13544- 8, ####[facility] CHIO [facility] LABCLIA [id number] [facility] [place], [place] [address]JJT [Catalytic activity/Vol]32 U/LUdhbjb95-06 [facility] on above:Order Comment: Specimen Type: BLOOD SPECIMENOrdering Facility: [facility] Address:[address] [place], [place] [address]Performed By: #### 89178-1, ####[facility] LABCLIA [id number] [place] [address] Bilirubin [Mass/Vol]0.4 mg/dLNormal0.2-1.3[facility] on above:Order Comment: Specimen Type: BLOOD SPECIMENOrdering Facility: [facility] Address:[address] [place], [place] [address]Performed By: #### 13482-9, 63863-2 ####[facility] LABCLIA [id number] [place], [place] [address]Zgmvjge [Mass/Vol]8.6 mg/dLNormal8.5-10.2 [facility] on above:Order Comment: Specimen Type: BLOOD SPECIMENOrdering Facility: [facility] Address:[address] [place], [place] [address]Performed By: #### 44071-7, ####[facility] LABCLIA [id number] [place], [place] [address]Jralakrf [Moles/Vol]94 mmol/WNis73-607RgkikafikAvita Health System on above:Order Comment: Specimen Type: BLOOD SPECIMENOrdering Facility: [facility] Address:[address] [place], [place] [address]Performed By: #### 08065- 8, ####[facility] LABCLIA [id number] [place], [place] [address]VD3 [Moles/Vol]25 mmol/QRfgrgz20-39XkcmhhgoaAvita Health System on above:Order Comment: Specimen Type: BLOOD SPECIMENOrdering Facility: [facility] Address:[address] [place], [place] [address]Performed By: #### 96801-6, ####[facility] LABCLIA [id number] [place], [place] [address]Fmhdkpwquo [Mass/Vol] 0.52 mg/dLLow0.58-0.96[facility] on above:Order Comment: Specimen Type: BLOOD SPECIMENOrdering Facility: [facility] Address:[address] [place], [place] [address]Performed By: #### 89266-6, ####[facility] LABCLIA [id number] [place], [place] [address]Xeppseuwad and Glomerular filtration rate.predicted panel (S/P/Bld)102 mL/min/1.73m???Normal>=60[facility] on above:Order Comment: Specimen Type: BLOOD SPECIMENOrdering Facility: [facility] Address:[address] [place], [place] [address]Zidsph Comment: Estimated Glomerular Filtration Rate (eGFR) is [...] not accurately reflect actual GFR.Performed By: #### 63006-1, 51340-7 ####[facility] LABIA [id number] [place], [place] [address]Svbuylj [Mass/Vol]106 mg/oCZtuu88-29EqnhzopfnAvita Health System on above:Order Comment: Specimen Type: BLOOD SPECIMENOrdering Facility: [facility] Address:[address] [place], [place] [address]Eoevwg Comment: The [place] Diabetes Association (ADA) provides guidance for cutoff [...] Standards of Medical Care in Diabetes 2016, [place] Diabetes Association. Diabetes Care. 2016.39(Suppl 1).Performed By: #### 62563- 8, 05564-1 ####[facility] LABCLIA [id number] [place], [place] [address]Gjjpvwyck [Moles/Vol]4.0 mmol/LNormal3.7-5.1 [facility] on above:Order Comment: Specimen Type: BLOOD SPECIMENOrdering Facility: [facility] Address:[address] [place], [place] [address]Performed By: #### 00510-1, 94935-6 ####[facility] LABCLIA [id number] [place], [place] [address]Hryuosp [Mass/Vol]6.3 g/dLNormal6.3-8.0[facility] on above:Order Comment: Specimen Type: BLOOD SPECIMENOrdering Facility: [facility] Address:[address] [place], [place] [address]Performed By: #### 75603- 8, 79746-4 ####[facility] LABCLIA [id number] [place], [place] [address]Ixtqgf [Moles/Vol]129 mmol/QKod362-299BfahxzqlhAvita Health System on above:Order Comment: Specimen Type: BLOOD SPECIMENOrdering Facility: [facility] Address:[address] [place], [place] [address]Performed By: #### 14678-5, 25608-4 ####[facility] LABCLIA [id number] [place], [place] [address]Aemy nitrogen [Mass/Vol]10 mg/dLNormal7-21[facility] on above: Order Comment: Specimen Type: BLOOD SPECIMENOrdering Facility: [facility] Address:[address] [place], [place] [address]Performed By: #### 97818- 8, 89965-0 ####[facility] LABCLIA [id number] [place], [place] [address]Vvjkbbpig SerPl-mCncon 88-91-6105Uvygafjoe [Mass/Vol]1.7 mg/dLNormal1.7-2.3[facility] on above:Order Comment: Specimen Type: BLOOD SPECIMENOrdering Facility: [facility] Address:[address] [place], [place] [address]Performed By: #### 82297- 8, 16689-6 ####[facility] LABCLIA [id number] [place], [place] [address]LQRQAXUY FOR ADDITIONAL BIOMARKER AND MOLECULAR TESTINGOrdered By: Kalen Jennings on 50-52-2720QAOZIFCwfclqgfn ClinicComment on above:Request has been received for evaluation and the results will be issued separately. [facility] HospitalREFERRAL FOR ADDITIONAL BIOMARKER AND MOLECULAR TESTINGon 37-81-6381XTMGGFAI FOR ADDITIONAL BIOMARKER AND MOLECULAR TESTINGNormalCSCC[facility] on above:Order Comment: Specimen Type: TISSUE SPECIMENOrdering Facility: [facility] Address: [address] [place], [place] [address]Result Comment: Request has been received for evaluation and the results will be issued separately.Performed By: #### APMOL ####[facility] LABCLIA [id number] [place], [place] [address]CPT SerPl-aCncon 91-02-8687XEE Qn1.380 m[IU]/LNormal0.270-4.200[facility] on above:Order Comment: Specimen Type: BLOOD SPECIMENOrdering Facility: [facility] Address:[address] [place], [place] [address]Performed By: #### 3016-3 ####[facility] LABCLIA [id number] [place] [address] [place] OF AMERICACNPNon 43-60-4734XTTJFzachgFdgarehhv Clinic ClevelandBasi Metabolic Panelon 48-87-6728Drzlc gap [Moles/Vol]10.9 mmol/LNormal6.0-15.0The [facility] Physician GroupComment on above:Performed By: #### VIN, FE and TIBC, [id number], LDH #### [facility] [address] [place] [address] USACalcium [Mass/Vol]8.2 mg/dLLow8.6-10.3The [facility] Physician GroupComment on above:Performed By: #### VIN, FE and TIBC, [id number], LDH #### [facility] [address] [place] [address] USAChloride [Moles/Vol]102 mmol/GXrijdk64-666Clh [facility] Physician GroupComment on above:Performed By: #### VIN, FE and TIBC, QHTT16ISL, LDH #### [place] [address] USACO2 [Moles/Vol]27.9 mmol/OLlzded95.0-31.0The [facility] Physician GroupComment on above:Performed By: #### VIN, FE and TIBC, [id number], LDH #### [facility] [address] [place] [address] USACreatinine [Mass/Vol]0.41 mg/dLLow0.60-1.20The [facility] Physician GroupComment on above:Performed By: #### VIN, FE and TIBC, [id number], LDH #### [place] [address] USACreatinine Clr Calc Yxmptmaa74.13NormalThe [facility] Physician GroupComment on above:Result Comment: PERFORMED BY: [place] [address] PATHOLOGIST [employer] PETER COFFEY M.D.Performed By: #### VIN, FE and TIBC, [id number], LDH #### [place] [address] USAGFR/1.73 sq M.predicted MDRD (S/P/Bld) [Vol rate/Area] mL/min/{1.73_m2}NormalThe [facility] Physician GroupComment on above:Performed By: #### VIN, FE and TIBC, [id number], LDH #### [place] [address] USAGlucose [Mass/Vol]108 mg/jKLhqm60-477Ifb [facility] Physician GroupComment on above:Result Comment: Random Glucose Reference Range is dependent on time and content of last meal. Glucose of more than 200 mg/dL in a nonstressed, ambulatory subject supports the diagnosis of Diabetes Mellitus. ADA recommended reference rangePerformed By: #### VIN, FE and TIBC, [id number], LDH #### [facility] [address] [place] [address] USAPotassium [Moles/Vol]3.8 mmol/LNormal3.5-5.1The [facility] Physician GroupComment on above:Performed By: #### VIN, FE and TIBC, FLGF87MME, LDH #### [facility] [address] [place] [address] USASodium [Moles/Vol]137 mmol/JXalgli249-697Twr [facility] Physician GroupComment on above:Performed By: #### VIN, FE and TIBC, [id number], LDH #### [facility] [address] [place] [address] USAUrea nitrogen [Mass/Vol]7 mg/dLNormal7-25The [facility] Physician GroupComment on above:Performed By: #### VIN, FE and TIBC, [id number], LDH #### [facility] [address] [place] [address] USACalcium [Mass/volume] in Serum or PlasmaOrdered By: Agatha Grayomar on 86-68-6230Nysdtjd [Mass/Vol]Calcium [Mass/volume] in Serum or PlasmaLow8.6-10.3FHolzer Health SystemCarbon dioxide, total [Moles/volume] in Serum or PlasmaOrdered By: Agatha Grayomar on 47-89-4570HX4 [Moles/Vol]Carbon dioxide, total [Moles/volume] in Serum or Phxidt89.0-31.0 [facility] HospitalChloride [Moles/volume] in Serum or Plasma Ordered By: Agatha Grayomar on 27-46-8518Terexyqy [Moles/Vol]Chloride [Moles/volume] in Serum or Qpyvbk89-185YmyjnahheMagruder Memorial Hospital Creatinine [Mass/volume] in Serum or PlasmaOrdered By: Agatha Grayomar on 75-80-8872Xdjzbereff [Mass/Vol]Creatinine [Mass/volume] in Serum or PlasmaLow 0.60-1.20[facility] HospitalErythrocyte distribution width Auto (RBC) [Ratio]Ordered By: Agatha Abrahamr on 93-63-4763Szqtdqthvbq distribution width (RBC) [Ratio]Erythrocyte distribution width [Ratio] by Automated count 11.9-15.3FHolzer Health SystemGlucose [Mass/volume] in Serum or PlasmaOrdered By: Obmichelledanoah Grayomar on 27-49-6682Tuicvgl [Mass/Vol]Glucose [Mass/volume] in Serum or RyjdfpCtbi90-206GnxduthikMagruder Memorial Hospital Comment on above:ADA recommended reference rangeRandom Glucose Reference Range is dependent on time and content of last meal. Glucose of more than 200 mg/dL in a nonstressed, ambulatory subject supports the diagnosisof Diabetes Mellitus. Hematocrit Auto (Bld) [Volume fraction]Ordered By: Agatha Martinez on 09-12-2024 Hematocrit (Bld) [Volume fraction]Hematocrit [Volume Fraction] of Blood by Automated pfzqpVyc90.0-46.4FHolzer Health SystemHemoglobin [Mass/volume] in BloodOrdered By: Agatha Abrahamr on [id number] (Bld) [Mass/Vol]Hemoglobin [Mass/volume] in VlotoHpt12.8-15.4FHolzer Health SystemHemogram CBC Without Diffon 87-14-1696Jspmmslgjwg distribution width (RBC) [Ratio]14.6 %Zvjezc41.9-15.3The [facility] Physician GroupComment on above:Performed By: #### VIN, FE and TIBC, [id number], LDH #### [facility] [address] [place] [address] USAHematocrit (Bld) [Volume fraction]25.2 %Low34.0-46.4The [facility] Physician GroupComment on above:Performed By: #### VIN, FE and TIBC, [id number], LDH #### [facility] [address] [place] [address] USAHemoglobin (Bld) [Mass/Vol]8.3 g/dLLow11.8-15.4The [facility] Physician GroupComment on above:Performed By: #### VIN, FE and TIBC, [id number], LDH #### [facility] [address] [place], [place] [address]H (RBC) [Entitic mass]28.6 osDpywna28.7-34.3The [facility] Physician GroupComment on above:Performed By: #### VIN, FE and TIBC, [id number], LDH #### [address]MCV (RBC) [Entitic vol]87.2 qLJsxiea75-599Ddw [facility] Physician GroupComment on above:Performed By: #### VIN, FE and TIBC, [id number], LDH #### [place] [address] USAMean Corpuscular HGB Conc32.8 g/fEVfubvn51.0-35.0The [facility] Physician GroupComment on above:Performed By: #### VIN, FE and TIBC, [id number], LDH #### [place] [address] USAPlatelet mean volume (Bld) [Entitic vol]7.4 fLNormal 6.3-10.7The [facility] Physician GroupComment on above:Result Comment: PERFORMED BY: [place] [address] PATHOLOGIST [employer] PETER COFFEY M.D.Performed By: #### VIN, FE and TIBC, [id number], LDH #### [place] [address] USAPlatelets (Bld) [#/Vol]409 10*3/yNSqeute500-779Uos [facility] Physician GroupComment on above:Performed By: #### VIN, FE and TIBC, [id number], LDH #### [place] [address] USARBC (Bld) [#/Vol]2.89 10*6/uLLow3.60-5.00The [facility] Physician GroupComment on above:Performed By: #### VIN, FE and TIBC, [id number], LDH #### [address] [place] [address] USAWBC (Bld) [#/Vol]11.2 10*3/uLNormal3.8-11.6The [facility] Physician GroupComment on above:Performed By: #### VIN, FE and TIBC, [id number], LDH #### [facility] [address] [place] [address] USALeukocytes [#/volume] corrected for nucleated erythrocytes in Blood by Automated counOrdered By: Agatha Grayomar on 21-57-4832KDE corrected for nucl RBC Auto (Bld) [#/Vol]Leukocytes [#/volume] corrected for nucleated erythrocytes in Blood by Automated coun3.8-11.6FSt. [facility] Hospital Auto (RBC) [Entitic mass]Ordered By: Agatha Grayomar on 78-61-3273HEK (RBC) [Entitic mass]MCH [Entitic mass] by Automated count24.7-34.3 [facility] HospitalMCHC Auto (RBC) [Mass/Vol]Ordered By: Agatha Grayomar on 68-20-6642MFED (RBC) [Mass/Vol]MCHC [Mass/volume] by Automated count 32.0-35.0[facility] HospitalMCV Auto (RBC) [Entitic vol]Ordered By: Agatha Grayomar on 20-92-5343GFN (RBC) [Entitic vol]MCV [Entitic volume] by Automated -991MuteslqhcMagruder Memorial HospitalNo Panel Information Ordered By: Agatha Martinez on 45-64-1129Rchpkofqa GFR (CKD-EPI)> 60.0 mL/Min [facility] HospitalPharmacy Creatinine Clearance (Chem82.13 [facility] HospitalPlatelet mean volume Auto (Bld) [Entitic vol] Ordered By: Agatha Grayomar on 79-47-5897Lfkwwlzv mean volume (Bld) [Entitic vol]Platelet mean volume [Entitic volume] in Blood by Automated count6.3-10.7 [facility] HospitalPlatelets Auto (Bld) [#/Vol]Ordered By: Agatha Grayomar on 64-02-6967Wunqqvphu (Bld) [#/Vol]Platelets [#/volume] in Blood by Automated zdtza368-669YkvdighqkMagruder Memorial HospitalPotassium [Moles/volume] in Serum or PlasmaOrdered By: Agatha Abrahamr on 01-70-9653Yexjrnbvg [Moles/Vol] Potassium [Moles/volume] in Serum or Plasma3.5-5.1FHolzer Health SystemRBC Auto (Bld) [#/Vol]Ordered By: Agatha Grayomar on 75-42-0603YPU (Bld) [#/Vol]Erythrocytes [#/volume] in Blood by Automated countLow3.60-5.00[facility] Memorial Hospitalerum or plasma anion gap determinationOrdered By: Agatha Martinez on 96-10-1851Jnbrp gap [Moles/Vol]Serum or plasma anion gap determination6.0-15.0[facility] Hospitalodium [Moles/volume] in Serum or PlasmaOrdered By: Agatha Martinez on 07-36-7787Qwirqd [Moles/Vol]Sodium [Moles/volume] in Serum or Squeom524-162CppbxbmhoMagruder Memorial HospitalUrea nitrogen [Mass/volume] in Serum or PlasmaOrdered By: Agatha Martinez on 01-80-3394Ieal nitrogen [Mass/Vol]Urea nitrogen [Mass/volume] in Serum or Plasma 7-25[facility] HospitalBasic Metabolic Panelon 12-46-5540Wjfwf gap [Moles/Vol]12.5 mmol/LNormal6.0-15.0The [facility] Physician GroupComment on above:Performed By: #### VIN, FE and TIBC, [id number], LDH #### [facility] [address] [place] [id number] USACalcium [Mass/Vol]8.5 mg/dLLow8.6-10.3The [facility] Physician GroupComment on above:Performed By: #### VIN, FE and TIBC, [id number], LDH #### [facility] [address] [place] [id number] USAChloride [Moles/Vol]99 mmol/TTdzsdl26-791Fub [facility] Physician GroupComment on above:Performed By: #### VIN, FE and TIBC, [id number], LDH #### [place] [address] USACO2 [Moles/Vol]28.3 mmol/ZJpmyyi78.0-31.0The [facility] Physician GroupComment on above:Performed By: #### VIN, FE and TIBC, [id number], LDH #### [place] [address] USACreatinine [Mass/Vol]0.43 mg/dLLow0.60-1.20The [facility] Physician GroupComment on above:Performed By: #### VIN, FE and TIBC, [id number], LDH #### [place] [address] USACreatinine Clr Calc Azhsxknv96.13NormalThe [facility] Physician GroupComment on above:Result Comment: PERFORMED BY: [place] [address] PATHOLOGIST RESERVATIONS SALES AGENT PETER COFFEY M.D.Performed By: #### VIN, FE and TIBC, [id number], LDH #### [place] [address] USAGFR/1.73 sq M.predicted MDRD (S/P/Bld) [Vol rate/Area] mL/min/{1.73_m2}NormalThe [facility] Physician [facility] WesleyComment on above:Performed By: #### VIN, FE and TIBC, [id number], LDH #### [place] [address] USAGlucose [Mass/Vol]110 mg/kAWsff24-047Gzc [facility] Physician GroupComment on above:Result Comment: Random Glucose Reference Range is dependent on time and content of last meal. Glucose of more than 200 mg/dL in a nonstressed, ambulatory subject supports the diagnosis of Diabetes Mellitus. ADA recommended reference rangePerformed By: #### VIN, FE and TIBC, [id number], LDH #### [address] [place] [address] USAPotassium [Moles/Vol]3.8 mmol/LNormal3.5-5.1The [facility] Physician GroupComment on above:Performed By: #### VIN, FE and TIBC, [id number], LDH #### [place] [address] USASodium [Moles/Vol]136 mmol/FOadkcl888-257Yoz [facility] Physician GroupComment on above:Performed By: #### VIN, FE and TIBC, [id number], LDH #### [place] [address] USAUrea nitrogen [Mass/Vol]7 mg/dLNormal7-25The [facility] Physician GroupComment on above:Performed By: #### VIN, FE and TIBC, [id number], LDH #### [place] [address] USAHemogram CBC Without Diffon 35-70-3321Edysasarfig distribution width (RBC) [Ratio]14.8 %Rjmsgy99.9-15.3The [facility] Physician GroupComment on above:Performed By: #### VIN, FE and TIBC, [id number], LDH #### [place] [address] USAHematocrit (Bld) [Volume fraction]26.8 %Low34.0-46.4The [facility] Physician GroupComment on above:Performed By: #### VIN, FE and TIBC, [id number], LDH #### [place] [address] USAHemoglobin (Bld) [Mass/Vol]8.9 g/dLLow11.8-15.4The [facility] Physician GroupComment on above:Performed By: #### VIN, FE and TIBC, [id number], LDH #### [place] [address] USAMCH (RBC) [Entitic mass]28.8 zwMwuung79.7-34.3The [facility] Physician GroupComment on above:Performed By: #### VIN, FE and TIBC, [id number], LDH #### [place] [address] USAMCV (RBC) [Entitic vol]86.5 rONekjyj58-876Ubb [facility] Physician GroupComment on above:Performed By: #### VIN, FE and TIBC, [id number], LDH #### [place] [address] USAMean Corpuscular HGB Conc33.3 g/vRTaypyv41.0-35.0The [facility] Physician GroupComment on above:Performed By: #### VIN, FE and TIBC, [id number], LDH #### [place] [address] USAPlatelet mean volume (Bld) [Entitic vol]7.4 fLNormal 6.3-10.7The [facility] Physician GroupComment on above:Result Comment: PERFORMED BY: [place] [address] PATHOLOGIST RESERVATIONS SALES AGENT PETER COFFEY M.D.Performed By: #### VIN, FE and TIBC, [id number], LDH #### [place] [address] USAPlatelets (Bld) [#/Vol]434 10*3/iTEeofqz217-588Zgp [facility] Physician GroupComment on above:Performed By: #### VIN, FE and TIBC, [id number], LDH #### [place] [address] USARBC (Bld) [#/Vol]3.09 10*6/uLLow3.60-5.00The [facility] Physician GroupComment on above:Performed By: #### VIN, FE and TIBC, [id number], LDH #### [place] [address] USAWBC (Bld) [#/Vol]10.2 10*3/uLNormal3.8-11.6The [facility] Physician GroupComment on above:Performed By: #### VIN, FE and TIBC, [id number], LDH #### [place] [address] USABasic Metabolic Panelon 69-07-3215Nmrdq gap [Moles/Vol] 10.3 mmol/LNormal6.0-15.0The [facility] Physician GroupComment on above:Performed By: #### CBC #### [place] [address] USACalcium [Mass/Vol]8.2 mg/dLLow8.6-10.3The [facility] Physician GroupComment on above:Performed By: #### CBC #### [place] [address] USAChloride [Moles/Vol]103 mmol/VHztqkv21-648Zrl [facility] Physician GroupComment on above:Performed By: #### CBC #### [place] [address] USACO2 [Moles/Vol]27.4 mmol/QBsqgel03.0-31.0The [facility] Physician GroupComment on above:Performed By: #### CBC #### [place] [address] USACreatinine [Mass/Vol]0.44 mg/dLLow0.60-1.20The [facility] Physician GroupComment on above:Performed By: #### CBC #### [place] [address] USACreatinine Clr Calc Guxkkuqq66.65NormalThe [facility] Physician GroupComment on above:Result Comment: PERFORMED BY: [place] [address] PATHOLOGIST RESERVATIONS SALES AGENT PETER COFFEY M.D.Performed By: #### CBC #### [place] [address] USAGFR/1.73 sq M.predicted MDRD (S/P/Bld) [Vol rate/Area] mL/min/{1.73_m2}NormalThe [facility] Physician GroupComment on above:Performed By: #### CBC #### [place] [address] USAGlucose [Mass/Vol]114 mg/lIEivf12-227Bqj [facility] Physician GroupComment on above:Result Comment: Random Glucose Reference Range is dependent on time and content of last meal. Glucose of more than 200 mg/dL in a nonstressed, ambulatory subject supports the diagnosis of Diabetes Mellitus. ADA recommended reference rangePerformed By: #### CBC #### [place] [address] USAPotassium [Moles/Vol]3.7 mmol/LNormal3.5-5.1The [facility] Physician GroupComment on above:Performed By: #### CBC #### [place] [address] USASodium [Moles/Vol]137 mmol/IAoyfne240-321Ciw [facility] Physician GroupComment on above:Performed By: #### CBC #### [place] [address] USAUrea nitrogen [Mass/Vol]9 mg/dLNormal7-25The [facility] Physician GroupComment on above:Performed By: #### CBC #### [place] [address] USAHemogram CBC Without Diffon 29-08-0491Mmzblrtzhhu distribution width (RBC) [Ratio]14.9 %Tniltd61.9-15.3The [facility] Physician GroupComment on above:Performed By: #### CBC #### [place] [address] USAHematocrit (Bld) [Volume fraction]24.6 %Low34.0-46.4The [facility] Physician GroupComment on above:Performed By: #### CBC #### [place] [address] USAHemoglobin (Bld) [Mass/Vol]8.1 g/dLLow11.8-15.4The [facility] Physician GroupComment on above:Performed By: #### CBC #### [place] [address] USAMCH (RBC) [Entitic mass]28.8 cpQmwrbc35.7-34.3The [facility] Physician GroupComment on above:Performed By: #### CBC #### [place] [address] USAV (RBC) [Entitic vol]87.2 bTXeridq37-238Lld [facility] Physician GroupComment on above:Performed By: #### CBC #### [place] [address] USAMean Corpuscular HGB Conc33.0 g/wMXnznki20.0-35.0The [facility] Physician GroupComment on above:Performed By: #### CBC #### [place] [address] USAPlatelet mean volume (Bld) [Entitic vol]7.3 fLNormal 6.3-10.7The [facility] Physician GroupComment on above:Result Comment: PERFORMED BY: [place] [address] PATHOLOGIST RESERVATIONS SALES AGENT PETER COFFEY M.D.Performed By: #### CBC #### [place] [address] USAPlatelets (Bld) [#/Vol]387 10*3/aGGnfaqr257-827Qbj [facility] Physician GroupComment on above:Performed By: #### CBC #### [place] [address] USARBC (Bld) [#/Vol]2.82 10*6/uLLow3.60-5.00The [facility] Physician GroupComment on above:Performed By: #### CBC #### [place] [address] USAWBC (Bld) [#/Vol]9.0 10*3/uLNormal3.8-11.6The [facility] Physician GroupComment on above:Performed By: #### CBC #### [place] [address] USAAppearance of UrineOrdered By: Obaydah Daromar on 80-97-6226Zfxwobojrx (U)Urine appearanceClearFHolzer Health System Bacteria [Presence] in Urine by AutomatedOrdered By: Agatha Grayomar on 47-61-3632Rijopvsx Auto Ql (U)Bacteria [Presence] in Urine by AutomatedNone Seen [facility] HospitalBasic Metabolic Panelon 75-05-6941Kncdc gap [Moles/Vol]11.7 mmol/LNormal6.0-15.0The [facility] Physician GroupComment on above:Performed By: #### CBC #### [facility] [address] [place] [address] USACalcium [Mass/Vol]7.9 mg/dLLow8.6-10.3The [facility] Physician GroupComment on above:Performed By: #### CBC #### [facility] [address] [place] [address] USAChloride [Moles/Vol]103 mmol/DUxxjfz72-762Dbs [facility] Physician GroupComment on above:Performed By: #### CBC #### [facility] [address] [place] [address] USACO2 [Moles/Vol]28.4 mmol/BJtzhdt69.0-31.0The [facility] Physician GroupComment on above:Performed By: #### CBC #### [facility] [address] [place] [address] USACreatinine [Mass/Vol]0.44 mg/dLLow0.60-1.20The [facility] Physician GroupComment on above:Performed By: #### CBC #### [facility] [address] [place] [address] USACreatinine Clr Calc Ivstezrl72.34NormalThe [facility] Physician GroupComment on above:Result Comment: PERFORMED BY: [place] [address] PATHOLOGIST RESERVATIONS SALES AGENT PETER COFFEY M.D.Performed By: #### CBC #### [facility] [address] [place] [address] USAGFR/1.73 sq M.predicted MDRD (S/P/Bld) [Vol rate/Area] mL/min/{1.73_m2}NormalThe [facility] Physician GroupComment on above:Performed By: #### CBC #### [place] [address] USAGlucose [Mass/Vol]105 mg/gTLmlg58-619Bbb [facility] Physician GroupComment on above:Result Comment: Random Glucose Reference Range is dependent on time and content of last meal. Glucose of more than 200 mg/dL in a nonstressed, ambulatory subject supports the diagnosis of Diabetes Mellitus. ADA recommended reference rangePerformed By: #### CBC #### [place] [address] USAPotassium [Moles/Vol]4.1 mmol/LNormal3.5-5.1The [facility] Physician GroupComment on above:Performed By: #### CBC #### [place] [address] USASodium [Moles/Vol]139 mmol/ZPualcu607-455Omg [facility] Physician GroupComment on above:Performed By: #### CBC #### [place] [address] USAUrea nitrogen [Mass/Vol]5 mg/dLLow7-25The [facility] Physician GroupComment on above:Performed By: #### CBC #### [place] [address] USABilirubin Test strip Ql (U)Ordered By: Agatha Martinez on 28-17-2279Hwlosgprf Ql (U)Bilirubin.total [Presence] in Urine by Test strip NegativeMagruder Memorial HospitalBlood Cultureon 50-08-3773Nnoifvuz identified Cx Nom (Bld)NO GROWTH 5 DAYS PERFORMED BY: [place] [address] PATHOLOGIST RESERVATIONS SALES AGENT PETER COFFEY M.D.NormalThe [facility] Physician GroupComment on above: Performed By: #### VIN, FE and TIBC, [id number], LDH #### [place] [address] USABacteria identified Cx Nom (Bld)NO GROWTH 5 DAYS PERFORMED BY: [place] [address] PATHOLOGIST RESERVATIONS SALES AGENT PETER COFFEY M.D.NormalAdventhealth Deland Physician GroupComment on above: Performed By: #### VIN, FE and TIBC, [id number], LDH #### [place] [address] USAColor Auto (U)Ordered By: Agatha Martinez on 09-09-2024 Color (U)Color of Urine by AutoYellowMagruder Memorial HospitalDipstick and Microscopicon 98-66-3308Mwnjchqnhw (U)ClearNormalClearThe [facility] Physician GroupComment on above:Order Comment: Comment add Comment addPerformed By: #### VIN, FE and TIBC, [id number], LDH #### [place] [address] USABacteria,UrineRareNormalNone SeenThe [facility] Physician GroupComment on above:Order Comment: Comment add Comment addPerformed By: #### VIN, FE and TIBC, [id number], LDH #### [place] [address] USABilirubin,UrineNegativeNormalNegativeThe [facility] Physician GroupComment on above:Order Comment: Comment add Comment addPerformed By: #### VIN, FE and TIBC, [id number], LDH #### [place] [address] USAColor (U)YellowNormalYellowThe [facility] Physician Group Comment on above:Order Comment: Comment add Comment addPerformed By: #### VIN, FE and TIBC, [id number], LDH #### [place] [address] USAGlucose Ql (U)NormalNormalNormalThe [facility] Physician GroupComment on above:Order Comment: Comment add Comment addPerformed By: #### VIN, FE and TIBC, [id number], LDH #### [facility] [address] [place] [address] USAHyaline Casts,UrineNoneNormal0-8The [facility] Physician GroupComment on above:Order Comment: Comment add Comment addPerformed By: #### VIN, FE and TIBC, [id number], LDH #### [address] [address] USAKetones Ql (U)TraceHighNegativeThe [facility] Physician GroupComment on above:Order Comment: Comment add Comment addPerformed By: #### VIN, FE and TIBC, [id number], LDH #### [place] [phone] USALeukocyte esterase Test strip Ql (U)NegativeNormalNegative The [facility] Physician GroupComment on above:Order Comment: Comment add Comment addPerformed By: #### VIN, FE and TIBC, [id number], LDH #### [place] [id number] USAMucus,UrineRareNormalThe [facility] Physician GroupComment on above:Order Comment: Comment add Comment addResult Comment: PERFORMED BY: [place] [address] PATHOLOGIST RESERVATIONS SALES AGENT PETER COFFEY M.D.Performed By: #### VIN, FE and TIBC, [id number], LDH #### [place] [address] USANitrite,UrineNegativeNormalNegativeThe [facility] Physician GroupComment on above:Order Comment: Comment add Comment addPerformed By: #### VIN, FE and TIBC, [id number], LDH #### [place] [id number] USAOccult Blood,Urine1+HighNegativeThe [facility] Physician GroupComment on above:Order Comment: Comment add Comment addResult Comment: PERFORMED BY: [place] [address] PATHOLOGIST RESERVATIONS SALES AGENT PETER COFFEY M.D.Performed By: #### VIN, FE and TIBC, [id number], LDH #### [place] [address] USApH (U)6.5 [pH]Normal5.0-9.0The [facility] Physician Group Comment on above:Order Comment: Comment add Comment addPerformed By: #### VIN, FE and TIBC, [id number], LDH #### [place] [address] USAProtein (U) [Mass/Vol]30 mg/dLHighNegativeThe [facility] Physician GroupComment on above:Order Comment: Comment add Comment addPerformed By: #### VIN, FE and TIBC, [id number], LDH #### [place] [address] USARBC,Guyvr4-6Vflyqo6-2Xvn [facility] Physician GroupComment on above:Order Comment: Comment add Comment addPerformed By: #### VIN, FE and TIBC, HYZH85QYM, LDH #### [place] [address] USASpecificy [place],Urine1.647Biojek0.001-1.030The [facility] Physician GroupComment on above:Order Comment: Comment add Comment addPerformed By: #### VIN, FE and TIBC, PGFR80UNZ, LDH #### [place] [address] USASquamous Epithelial Cell,Orqqp6-0Ygwn4-5Jin [facility] Physician GroupComment on above:Order Comment: Comment add Comment addPerformed By: #### VIN, FE and TIBC, [id number], LDH #### [place] [address] USAUrobilinogen,UrineNormalNormalNormalThe [facility] Physician GroupComment on above:Order Comment: Comment add Comment addPerformed By: #### VIN, FE and TIBC, [id number], LDH #### [place] [address] USAWBC,Vrwhy1-5Mjshmg7-3Pnv [facility] Physician GroupComment on above:Order Comment: Comment add Comment addPerformed By: #### VIN, FE and TIBC, [id number], LDH #### [facility] [address] [place] [address] USAEpithelial cells.squamous [#/area] in Urine sediment by Automated countOrdered By: Obaydah Daromar on 38-51-2095Pkpjiabtww cells.squamous Auto (Urine sed) [#/Area]Epithelial cells.squamous [#/area] in Urine sediment by Automated countHigh02FHolzer Health System Erythrocytes [#/area] in Urine sediment by Automated countOrdered By: Obaydah Rewind Meomar on 63-70-6698VSO Auto (Urine sed) [#/Area]Erythrocytes [#/area] in Urine sediment by Automated count0-4FHolzer Health SystemGlucose [Mass/volume] in Urine by Test stripOrdered By: Obmichelledanoah Rewind Meomar on 09-09-2024 Glucose Test strip (U) [Mass/Vol]Glucose [Mass/volume] in Urine by Test strip NormalMagruder Memorial HospitalHemoglobin Test strip Ql (U)Ordered By: ObAppMyDaydaBloom Energyomar on 30-88-8473Wdvhgbpqua Ql (U)Hemoglobin [Presence] in Urine by Test stripHighNegThe Christ HospitalHemogram CBC Without Diff on 43-28-0850Rdbbkilbjyt distribution width (RBC) [Ratio]14.8 %Rixufm43.9-15.3 The [facility] Physician GroupComment on above:Performed By: #### CBC #### [facility] [address] [place] [address] USAHematocrit (Bld) [Volume fraction]24.0 %Low34.0-46.4The [facility] Physician GroupComment on above:Performed By: #### CBC #### [facility] [address] [place] [address] USAHemoglobin (Bld) [Mass/Vol]8.0 g/dLLow11.8-15.4The [facility] Physician GroupComment on above:Performed By: #### CBC #### [facility] [address] [place], [place] [address]H (RBC) [Entitic mass]29.1 lqEbqpid21.7-34.3The [facility] Physician GroupComment on above:Performed By: #### CBC #### [place] [address] USAMCV (RBC) [Entitic vol]87.3 dOSmuspa85-305Uel [facility] Physician GroupComment on above:Performed By: #### CBC #### [place] [address] USAMean Corpuscular HGB Conc33.4 g/xEYvnrqt28.0-35.0The [facility] Physician GroupComment on above:Performed By: #### CBC #### [place] [address] USAPlatelet mean volume (Bld) [Entitic vol]7.4 fLNormal 6.3-10.7The [facility] Physician GroupComment on above:Result Comment: PERFORMED BY: [place] [address] PATHOLOGIST RESERVATIONS SALES AGENT PETER COFFEY M.D.Performed By: #### CBC #### [place] [address] USAPlatelets (Bld) [#/Vol]424 10*3/rCMdnidh193-575Imt [facility] Physician GroupComment on above:Performed By: #### CBC #### [place] [address] USARBC (Bld) [#/Vol]2.75 10*6/uLLow3.60-5.00The [facility] Physician GroupComment on above:Performed By: #### CBC #### [place] [address] USAWBC (Bld) [#/Vol]8.9 10*3/uLNormal3.8-11.6The [facility] Physician GroupComment on above:Performed By: #### CBC #### [place] [address] USAHyaline casts [#/area] in Urine sediment by Automated countOrdered By: Agatha Martinez on 82-42-8471Ypfexvq casts Auto (Urine sed) [#/Area]Hyaline casts [#/area] in Urine sediment by Automated count0-8Mag[facility]uder Memorial HospitalKetones Test strip Ql (U)Ordered By: Agatha Martinez on 30-86-9240Humprxr Ql (U)Ketones [Presence] in Urine by Test stripHighNegative [facility] HospitalLaboratory - Microbiology and Antimicrobial susceptibilityOrdered By: Agatha Martinez on 33-00-7274Rcjsmwll identified Cx Nom (Bld)NO GROWTH 5 DAYSMagruder Memorial HospitalBacteria identified Cx Nom (Bld)NO GROWTH 5 DAYSMagruder Memorial HospitalLeukocyte esterase [Presence] in Urine by Test stripOrdered By: Agatha Martinez on 09-09-2024 Leukocyte esterase Test strip Ql (U)Leukocyte esterase [Presence] in Urine by Test stripNegThe Christ HospitalLeukocytes [#/area] in Urine sediment by Automated countOrdered By: Agatha Martinez on 92-25-5734JGQ Auto (Urine sed) [#/Area]Leukocytes [#/area] in Urine sediment by Automated count0-4 [facility] HospitalMucus [Presence] in Urine by AutomatedOrdered By: Agatha Martinez on 17-48-5235Kyhtl Auto Ql (U)Mucus [Presence] in Urine by AutomatedMagruder Memorial HospitalNitrite Test strip Ql (U)Ordered By: Agatha Martinez on 14-97-0507Cxcgucq Ql (U)Nitrite [Presence] in Urine by Test stripNegThe Christ HospitalProtein Test strip (U) [Mass/Vol] Ordered By: Agatha Abraham on 63-97-7730Xsmndlh (U) [Mass/Vol]Protein [Mass/volume] in Urine by Test stripHighNegCrystal Clinic Orthopedic Centerpecific gravity Test strip (U) [Rel density]Ordered By: Agatha Abraham on 60-36-1111Qxycudrd gravity (U) [Rel density]Specific gravity of Urine by Test strip1.001-1.030[facility] HospitalUrine Cultureon 09-09-2024 Bacteria identified Cx Nom (U)<9,000 colonies/ml mixed bacterial skin contaminants 2 Days PERFORMED BY: [place] [address] PATHOLOGIST RESERVATIONS SALES AGENT PETER COFFEY M.D.NormalAdventhealth Deland Physician GroupComment on above: Performed By: #### VIN, FE and TIBC, [id number], LDH #### [facility] [address] [place] [address] USAUrine cultureOrdered By: Obteresita Grayomar on 09-09-2024 Bacteria identified Cx Nom (U)Urine cultureMagruder Memorial Hospital Bacteria identified Cx Nom (U)Urine cultureMagruder Memorial Hospital Urobilinogen Test strip (U) [Mass/Vol]Ordered By: Agatha Grayomar on 09-09-2024 Urobilinogen (U) [Mass/Vol]Urobilinogen [Mass/volume] in Urine by Test strip NormalMagruder Memorial HospitalpH Test strip (U)Ordered By: Obmichelledanoah Grayomar on 80-15-3562lD (U)pH of Urine by Test strip5.0-9.0[facility] HospitalAlanine aminotransferase [Enzymatic activity/volume] in Serum or PlasmaOrdered By: Obmichelledah Daromar on 90-85-6039SXB [Catalytic activity/Vol] Alanine aminotransferase [Enzymatic activity/volume] in Serum or Plasma7-52 [facility] HospitalAlbumin [Mass/volume] in Serum or Plasma by Bromocresol green (BCG) dye binding methoOrdered By: Obmichelledah Daromar on 84-72-6817Efgonfr BCG dye [Mass/Vol]Albumin [Mass/volume] in Serum or Plasma by Bromocresol green (BCG) dye binding methoLow3.5-5.7FHolzer Health SystemAlkaline phosphatase [Enzymatic activity/volume] in Serum or PlasmaOrdered By: Obaydah Daromar on 37-08-6884DDT [Catalytic activity/Vol]Alkaline phosphatase [Enzymatic activity/volume] in Serum or Kcvkeq78-931VzgycdaauMagruder Memorial HospitalAspartate aminotransferase [Enzymatic activity/volume] in Serum or PlasmaOrdered By: Obmichelledanoah Rewind Meomar on 50-48-9857QIP [Catalytic activity/Vol]Aspartate aminotransferase [Enzymatic activity/volume] in Serum or Iaevub05-70OcpezygwhMagruder Memorial HospitalBasophils Auto (Bld) [#/Vol]Ordered By: Obayda Daromar on 57-21-7231Teztknrpu (Bld) [#/Vol]Automated basophil count 0.0-0.2FHolzer Health SystemBasophils/100 WBC Auto (Bld)Ordered By: Obayda Daromar on 46-94-2006Srzpnfesk/100 WBC (Bld)Automated basophil %. [facility] HospitalBilirubin.total [Mass/volume] in Serum or PlasmaOrdered By: Obmichelleda Rewind Meomar on 89-66-2071Aokcrzast [Mass/Vol] Bilirubin.total [Mass/volume] in Serum or Plasma0.3-1.0[facility] HospitalBioFire Not Detectedon 53-21-8633XwjJtzq Not DetectedNot detected NormalNot DetecteThe [facility] Physician GroupComment on above:Result Comment: This is a duplicate RP2.1 COVID (PCR) result to be used for statistical tracking purpose only. PERFORMED BY: [place] [address] PATHOLOGIST RESERVATIONS SALES AGENT PETER COFFEY M.D.Performed By: #### BIOFIRECOVNOTDE, RESP PANEL UPP. #### [place] [address] USACOVID-19 Detected/Not DetectedOrdered By: Objacob Isaacencompass health rehabilitation hospital of montgomeryr on 96-23-4680ECEJ-CoV-2 (COVID-19) RNA JOSE+non-probe Ql (Nph)Not detectedNot DetectVan Wert County HospitalComment on above:This is a duplicate RP2.1 COVID (PCR) result to be used for statistical tracking purpose only.CT angio abdomen pelvison 08-90-0377JO angio abdomen pelvisMARION HOS[facility] Main [place] [address] [place] [address] CT Scan Report Signed Patient: Ofe Saravia MR#: [id number] 88 : 1955 Acct:[id number] Age/Sex: 68 / F ADM Date: 09/07/24 Loc: Room: [address] [place] [address] Type: ADM IN Attending Dr: Agatha Martinez [...] Sanjiv Reis M.D.09/08/2024 12:43 AM Dictation Location: [place] [address] Transcribed By: [facility] 09/08/24 0043 Dictated By: Sanjiv Reis II, MD 09/08/24 0036 Signed By: 09/08/24 0043NormTampa General Hospital Physician GroupComplete Blood Count Auto Diffon 05-63-4240Ndbqhlqsh (Bld) [#/Vol]0.0 10*3/uLNormal0.0-0.2The [facility] Physician GroupComment on above:Performed By: #### CBC #### [facility] [address] [place] [id number] USABasophils/100 WBC (Bld)0.4 %Normal.The [facility] Physician GroupComment on above:Performed By: #### CBC #### [facility] [address] [place] [id number] USAEosinophils (Bld) [#/Vol]0.1 10*3/uLNormal0.0-0.45The [facility] GroupComment on above:Performed By: #### CBC #### [facility] [address] [place] [id number] USAEosinophils/100 WBC (Bld)0.8 %Normal.The [facility] Physician GroupComment on above:Performed By: #### CBC #### [facility] [address] [place] [id number] USAErythrocyte distribution width (RBC) [Ratio]14.9 %Normal 11.9-15.3The [facility] Physician GroupComment on above:Performed By: #### CBC #### [facility] [address] [place] [address] USAHematocrit (Bld) [Volume fraction]27.1 %Low34.0-46.4The [facility] Physician GroupComment on above:Performed By: #### CBC #### [facility] [address] [place] [address] USAHemoglobin (Bld) [Mass/Vol]9.0 g/dLLow11.8-15.4The [facility] Physician GroupComment on above:Performed By: #### CBC #### [place] [address] USALymphocytes (Bld) [#/Vol]0.5 10*3/uLLow1.00-4.8The [facility] Physician GroupComment on above:Performed By: #### CBC #### [place] [address] USALymphocytes/100 WBC (Bld)4.7 %Normal.The [facility] Physician GroupComment on above:Performed By: #### CBC #### [place] [address] USAMCH (RBC) [Entitic mass]29.3 kyEozolh62.7-34.3The [facility] Physician GroupComment on above:Performed By: #### CBC #### [place] [address] USAMCV (RBC) [Entitic vol]88.5 gEVsdvkm41-205Qvl [facility] Physician GroupComment on above:Performed By: #### CBC #### [place] [address] USAMean Corpuscular HGB Conc33.1 g/mSBgmyuw39.0-35.0The [facility] Physician GroupComment on above:Performed By: #### CBC #### [place] [address] USAMonocytes (Bld) [#/Vol]0.9 10*3/uLHigh0.0-0.8The [facility] Physician GroupComment on above:Performed By: #### CBC #### [facility] [address] [place] [address] USAMonocytes/100 WBC (Bld)9.1 %Normal.The [facility] Physician GroupComment on above:Performed By: #### CBC #### [facility] [address] [place] [address] USANeutrophils (Bld) [#/Vol]8.4 10*3/uLHigh1.8-7.7The [facility] Physician GroupComment on above:Performed By: #### CBC #### [facility] [address] [place] [address] USANeutrophils/100 WBC (Bld)85.0 %Normal.The [facility] Physician GroupComment on above:Performed By: #### CBC #### [facility] [address] [place] [address] USANRBC%0.1 /100{WBC}Normal0-0.5The [facility] Physician Group Comment on above:Performed By: #### CBC #### [facility] [address] [place] [address] USAPlatelet mean volume (Bld) [Entitic vol]7.6 fLNormal 6.3-10.7The [facility] Physician GroupComment on above:Performed By: #### CBC #### [facility] [address] [place] [address] USAPlatelets (Bld) [#/Vol]463 10*3/cKIkqo823-533Pni [facility] Physician GroupComment on above:Performed By: #### CBC #### [facility] [address] [place] [address] USARBC (Bld) [#/Vol]3.06 10*6/uLLow3.60-5.00The [facility] Physician GroupComment on above:Performed By: #### CBC #### [facility] [address] [place] [address] USAWBC (Bld) [#/Vol]9.8 10*3/uLNormal3.8-11.6The [facility] Physician GroupComment on above:Performed By: #### CBC #### [place] [address] USAComprehensive Metabolic Panelon 42-02-4167Hsqwklc [Mass/Vol]2.6 g/dLLow3.5-5.7The [facility] Physician GroupComment on above: Performed By: #### BIOFIRECOVNOTDE, RESP PANEL UPP. #### [place] [address] USAAlbumin/Globulin [Mass ratio]0.8 {ratio}NormalThe [facility] Physician GroupComment on above:Performed By: #### BIOFIRECOVNOTDE, RESP PANEL UPP. #### [place] [address] USAALP [Catalytic activity/Vol]73 U/HJnkxcl90-398Dog [facility] Physician GroupComment on above:Performed By: #### BIOFIRECOVNOTDE, RESP PANEL UPP. #### [place] [address] USAALT [Catalytic activity/Vol]26 U/LNormal7-52The [facility] Physician GroupComment on above:Performed By: #### BIOFIRECOVNOTDE, RESP PANEL UPP. #### [place] [address] USAAnion gap [Moles/Vol]9.6 mmol/LNormal6.0-15.0The [facility] Physician GroupComment on above:Performed By: #### BIOFIRECOVNOTDE, RESP PANEL UPP. #### [place] [address] USAAST [Catalytic activity/Vol]22 U/CTcrqsb20-02Qfv [facility] Physician GroupComment on above:Performed By: #### BIOFIRECOVNOTDE, RESP PANEL UPP. #### [place] [address] USABilirubin [Mass/Vol]0.5 mg/dLNormal0.3-1.0The [facility] Physician GroupComment on above:Performed By: #### BIOFIRECOVNOTDE, RESP PANEL UPP. #### [place] [address] USACalcium [Mass/Vol]8.3 mg/dLLow8.6-10.3The [facility] Physician GroupComment on above:Performed By: #### BIOFIRECOVNOTDE, RESP PANEL UPP. #### [place] [address] USAChloride [Moles/Vol]105 mmol/XGzyauy76-979Xkn [facility] Physician GroupComment on above:Performed By: #### BIOFIRECOVNOTDE, RESP PANEL UPP. #### [place] [address] USACO2 [Moles/Vol]28.2 mmol/UEfsqty62.0-31.0The [facility] Physician GroupComment on above:Performed By: #### BIOFIRECOVNOTDE, RESP PANEL UPP. #### [place] [address] USACreatinine [Mass/Vol]0.51 mg/dLLow0.60-1.20The [facility] Physician GroupComment on above:Performed By: #### BIOFIRECOVNOTDE, RESP PANEL UPP. #### [place] [address] USACreatinine Clr Calc Fbbjcpil64.21NormalThe [facility] Physician GroupComment on above:Result Comment: PERFORMED BY: [place] [address] PATHOLOGIST RESERVATIONS SALES AGENT PETER COFFEY M.D.Performed By: #### BIOFIRECOVNOTDE, RESP PANEL UPP. #### [place] [address] USAGFR/1.73 sq M.predicted MDRD (S/P/Bld) [Vol rate/Area] mL/min/{1.73_m2}NormalThe [facility] Physician [facility] WesleyComment on above:Performed By: #### BIOFIRECOVNOTDE, RESP PANEL UPP. #### [place] [address] USAGlobulin (S) [Mass/Vol]3.1 g/dLNormalThe [facility] Physician GroupComment on above:Performed By: #### BIOFIRECOVNOTDE, RESP PANEL UPP. #### [place] [address] USAGlucose [Mass/Vol]122 mg/gZAdgf16-533Qgn [facility] Physician GroupComment on above:Result Comment: Random Glucose Reference Range is dependent on time and content of last meal. Glucose of more than 200 mg/dL in a nonstressed, ambulatory subject supports the diagnosis of Diabetes Mellitus. ADA recommended reference rangePerformed By: #### BIOFIRECOVNOTDE, RESP PANEL UPP. #### [place] [address] USAPotassium [Moles/Vol]3.8 mmol/LNormal3.5-5.1The [facility] Physician GroupComment on above:Performed By: #### BIOFIRECOVNOTDE, RESP PANEL UPP. #### [place] [address] USAProtein [Mass/Vol]5.7 g/dLLow6.4-8.9The [facility] Physician GroupComment on above:Performed By: #### BIOFIRECOVNOTDE, RESP PANEL UPP. #### [place] [address] USASodium [Moles/Vol]139 mmol/TXqxqkg832-483Sdx [facility] Physician GroupComment on above:Performed By: #### BIOFIRECOVNOTDE, RESP PANEL UPP. #### [place] [address] USAUrea nitrogen [Mass/Vol]7 mg/dLNormal7-25The [facility] Physician GroupComment on above:Performed By: #### BIOFIRECOVNOTDE, RESP PANEL UPP. #### [place] [address] USAEosinophils Auto (Bld) [#/Vol]Ordered By: Agatha Martinez on 72-93-0800Yfbdntpdflq (Bld) [#/Vol]Automated eosinophil count0.0-0.45 [facility] HospitalEosinophils/100 WBC Auto (Bld)Ordered By: Agatha Martinez on 01-80-1086Sjgnzghjijm/100 WBC (Bld)Automated eosinophil %. [facility] HospitalGlobulin Calc (S) [Mass/Vol]Ordered By: Agatha Martinez on 61-84-1139Awlwwesf (S) [Mass/Vol]Serum globulin measurement by calculation (mass/volume)[facility] HospitalHaptoglobinon 45-47-3954Ggjgwqjvqox>068Hcox28-932Kyz [facility] Physician GroupComment on above:Result Comment: PERFORMED BY: [facility] [address] [place] [address] PATHOLOGIST RESERVATIONS SALES AGENT PETER COFFEY M.D.Performed By: #### VIN, FE and TIBC, NNVY82CQH, LDH #### [facility] [address] [place] [address] USAHaptoglobin [Mass/volume] in Serum or PlasmaOrdered By: Agatha Martinez on 71-45-2354Pyghfjaeqaj [Mass/Vol]Haptoglobin [Mass/volume] in Serum or NtaxtyCqew93-893AzvxwrhkdMagruder Memorial HospitalINR in Platelet poor plasma by Coagulation assayOrdered By: Agatha Martinez on 94-51-3139DJL Coag (PPP) [Relative time]INR in Platelet poor plasma by Coagulation assayMagruder Memorial HospitalComment on above:INR Therapeutic Range A) Pre- and [...] (Bld) [#/Vol] Ordered By: Agatha Martinez on 82-19-9649Qgpixrablfg (Bld) [#/Vol]Lymphocytes [#/volume] in Blood by Automated countLow1.00-4.8[facility] HospitalLymphocytes/100 WBC Auto (Bld)Ordered By: michelleatrium health [facility] Isaacomar on 09-08-2024 Lymphocytes/100 WBC (Bld)Lymphocytes/100 leukocytes in Blood by Automated count. [facility] HospitalMonocytes Auto (Bld) [#/Vol]Ordered By: ObSt. Francis Medical Centeromar on 65-67-3720Zmkrslewe (Bld) [#/Vol]Automated blood monocyte countHigh 0.0-0.8[facility] HospitalMonocytes/100 WBC Auto (Bld)Ordered By: ObdaJames B. Haggin Memorial Hospitalomar on 48-51-0584Uqeugvkba/100 WBC (Bld)Automated monocyte %. [facility] HospitalNeutrophils Auto (Bld) [#/Vol]Ordered By: ObdaJames B. Haggin Memorial Hospitalomar on 05-35-4760Eukzhrbzjwm (Bld) [#/Vol]Neutrophils [#/volume] in Blood by Automated countHigh1.8-7.7FHolzer Health System Neutrophils/100 WBC Auto (Bld)Ordered By: [facility] CenterdaJames B. Haggin Memorial Hospitalomar on 09-08-2024 Neutrophils/100 WBC (Bld)Automated neutrophil %.[facility] HospitalNucleated erythrocytes [Presence] in Blood by Automated countOrdered By: [facility] on 95-11-1919Rmtwnqxcb RBC Auto Ql (Bld)Nucleated erythrocytes [Presence] in Blood by Automated count0-0.5FHolzer Health System Partial Thromboplastin Timeon 38-02-2320tVYY Coag (Bld) [Time]28.2 sNormal 25.1-36.5The [facility] Physician GroupComment on above:Result Comment: A hematocrit value greater than 55% may lead to inaccurate results in coagulation testing. Patients having hematocrit values >55% require a special collection tube for coagulation studies. Please contact the laboratory at [phone] for redraw instructions. PERFORMED BY: [facility] [address] [place] [address] PATHOLOGIST RESERVATIONS SALES AGENT PETER COFFEY M.D.Performed By: #### BIOFIRECOVNOTDE, RESP PANEL UPP. #### [facility] [address] [place] [address] USAProtein [Mass/volume] in Serum or PlasmaOrdered By: Agatha Martinez on 30-01-8783Nfpeaiy [Mass/Vol]Protein [Mass/volume] in Serum or PlasmaLow6.4-8.9[facility] HospitalProthrombin Time INRon 08-95-6290AAJ Coag (PPP) [Relative time]1.4 {INR}NormalThe [facility] Physician GroupComment on above:Result Comment: INR Therapeutic [...] 3 - 4.5Performed By: #### CBC #### [facility] [address] [place] [address] USAPT Coag (PPP) [Time]16.3 sHigh9.0-12.9The [facility] Physician GroupComment on above:Result Comment: A hematocrit value greater than 55% may lead to inaccurate results in coagulation testing. Patients having hematocrit values >55% require a special collection tube for coagulation studies. Please contact the laboratory at [phone] for redraw instructions.Performed By: #### CBC #### [facility] [address] [place] [address] USAProthrombin time (PT)Ordered By: Agatha Martinez on 61-48-1528GS Coag (PPP) [Time]Prothrombin time (PT)High9.0-12.9[facility] HospitalComment on above:A hematocrit value greater than 55% may lead to inaccurate results in coagulation testing. Patientshaving hematocrit values >55% require a special collection tube for coagulation studies. Please c ontact the laboratory at [phone] for redraw instructions.Respiratory (Upper) Panel, PCRon 65-53-4916Tdfoxlxowlx (Upper) Panel, PCRAdenovirus Not detected Bordetella parapertussis [...] Influenza A H3 Blank Space PERFORMED BY: [place] [address] PATHOLOGIST RESERVATIONS SALES AGENT PETER COFFEY M.D.NormalThe [facility] Physician GroupComment on above: Performed By: #### BIOFIRECOVNOTDE, RESP PANEL UPP. #### [facility] [address]Respiratory pathogens DNA and RNA panel - Nasopharynx by JOSE with non-probe detectionOrdered By: Agatha Martinez on 48-22-5282Rmsusfmhcgj pathogens DNA and RNA panel JOSE+non-probe (Nph)Respiratory pathogens DNA and RNA panel - Nasopharynx by JOSE with non-probe detectionMagruder Memorial HospitalRespiratory pathogens DNA and RNA panel JOSE+non-probe (Nph) Respiratory pathogens DNA and RNA panel - Nasopharynx by JOSE with non-probe detectionMagruder Memorial HospitalReticulocyte Counton 09-08-2024 Reticulocyte Number0.039 10*6/uLNormal0.024-0.084The [facility] Physician Group Comment on above:Result Comment: PERFORMED BY: [facility] [address] [place] [address] PATHOLOGIST RESERVATIONS SALES AGENT PETER COFFEY M.D.Performed By: #### CBC #### [facility] [address] [place] [address] USAReticulocyte Percent1.3 %Normal0.5-1.5The [facility] Physician GroupComment on above:Performed By: #### CBC #### [facility] [address] [place] [address] USAReticulocytes [#/volume] in BloodOrdered By: Obaydah Daromar on 73-30-3976Ktxcvudzgqypk (Bld) [#/Vol]Absolute reticulocyte count 0.024-0.084Mag[facility] Memorial HospitalReticulocytes/100 RBC Auto (Bld) Ordered By: Obaydah Daromar on 41-95-2064Jikhwnnptrhuo/100 RBC (Bld)Reticulocyte % auto0.5-1.5FSt. Vincent Hospitalerum or plasma albumin/globulin mass ratioOrdered By: Obaydah Daromar on 32-75-8296Ydnbmvf/Globulin [Mass ratio] Serum or plasma albumin/globulin mass ratioMagruder Memorial HospitalWBC Auto (Bld) [#/Vol]Ordered By: Obaydah Daromar on 41-27-5653EXT (Bld) [#/Vol] Leukocytes [#/volume] in Blood by Automated count3.8-11.6FHolzer Health SystemaPTT in Platelet poor plasma by Coagulation assayOrdered By: Obaydah Daromar on 89-91-9873nIAL Coag (PPP) [Time]Activated partial thromboplastin time (aPTT) in platelet poor plasma by coagulation a25.1-36.5 [facility] HospitalComment on above:A hematocrit value greater than 55% may lead to inaccurate results in coagulation testing. Patientshaving hematocrit values >55% require a special collection tube for coagulation studies. Please contact the laboratory at [phone] for redraw instructions. ABO/Rh Retypeon 28-14-6550TCU/RH Recheck ResultPositiveNormalThe [facility] Physician GroupComment on above:Result Comment: PERFORMED BY: [place] [address] PATHOLOGIST RESERVATIONS SALES AGENT PETER COFFEY M.D.Complete Blood Count Auto Diffon 85-27-3183Gcwzfziny (Bld) [#/Vol]0.0 10*3/uLNormal0.0-0.2The [facility] Physician GroupComment on above:Result Comment: PERFORMED BY: [place] [address] PATHOLOGIST RESERVATIONS SALES AGENT PETER COFFEY M.D.Performed By: #### CBC #### [place] [address] USABasophils/100 WBC (Bld)0.4 %Normal.The [facility] Physician GroupComment on above:Performed By: #### CBC #### [place] [address] USAEosinophils (Bld) [#/Vol]0.1 10*3/uLNormal0.0-0.45The [facility] Physician GroupComment on above:Performed By: #### CBC #### [place] [address] USAEosinophils/100 WBC (Bld)0.8 %Normal.The [facility] Physician GroupComment on above:Performed By: #### CBC #### [place] [address] USAErythrocyte distribution width (RBC) [Ratio]14.1 %Normal 11.9-15.3The [facility] Physician GroupComment on above:Performed By: #### CBC #### [place] [address] USAHematocrit (Bld) [Volume fraction]24.3 %Low34.0-46.4The [facility] Physician GroupComment on above:Performed By: #### CBC #### [place] [address] USAHemoglobin (Bld) [Mass/Vol]7.9 g/dLLow11.8-15.4The [facility] Physician GroupComment on above:Performed By: #### CBC #### [place] [address] USALymphocytes (Bld) [#/Vol]0.6 10*3/uLLow1.00-4.8The [facility] Physician GroupComment on above:Performed By: #### CBC #### [place] [address] USALymphocytes/100 WBC (Bld)5.2 %Normal.The [facility] Physician GroupComment on above:Performed By: #### CBC #### [place] [address] USAMCH (RBC) [Entitic mass]28.9 woVrdykl87.7-34.3The [facility] Physician GroupComment on above:Performed By: #### CBC #### [place] [address] USAMCV (RBC) [Entitic vol]88.6 sNOdykpr64-928Cxx [facility] Physician GroupComment on above:Performed By: #### CBC #### [place] [address] USAMean Corpuscular HGB Conc32.6 g/uETelrmh68.0-35.0The [facility] Physician GroupComment on above:Performed By: #### CBC #### [place] [address] USAMonocytes (Bld) [#/Vol]1.0 10*3/uLHigh0.0-0.8The [facility] Physician GroupComment on above:Performed By: #### CBC #### [place] [address] USAMonocytes/100 WBC (Bld)9.2 %Normal.The [facility] Physician GroupComment on above:Performed By: #### CBC #### [place] [address] USANeutrophils (Bld) [#/Vol]9.3 10*3/uLHigh1.8-7.7The [facility] Physician GroupComment on above:Performed By: #### CBC #### [facility] [address] [place] [address] USANeutrophils/100 WBC (Bld)84.4 %Normal.The [facility] Physician GroupComment on above:Performed By: #### CBC #### [facility] [address] [place] [address] USANRBC%0.0 /100{WBC}Normal0-0.5The [facility] Comment on above:Performed By: #### CBC #### [place] [address] USAPlatelet mean volume (Bld) [Entitic vol]7.8 fLNormal 6.3-10.7The [facility] Physician GroupComment on above:Performed By: #### CBC #### [place] [address] USAPlatelets (Bld) [#/Vol]444 10*3/bCMoixqz557-445Xys [facility] Physician GroupComment on above:Performed By: #### CBC #### [place] [address] USARBC (Bld) [#/Vol]2.74 10*6/uLLow3.60-5.00The [facility] Physician GroupComment on above:Performed By: #### CBC #### [place] [address] USAWBC (Bld) [#/Vol]11.0 10*3/uLNormal3.8-11.6The [facility] Physician GroupComment on above:Performed By: #### CBC #### [place] [address] USADipstick and Microscopicon 83-48-0511Sjrnetauwk (U)Clear NormalClearThe [facility] Physician GroupComment on above:Order Comment: Comment add Comment addPerformed By: #### VIN, FE and TIBC, [id number], LDH #### [place] [id number] USABacteria,UrineNone SeenNormalNone SeenThe [facility] Physician GroupComment on above:Order Comment: Comment add Comment addPerformed By: #### VIN, FE and TIBC, [id number], LDH #### [place] [address] USABilirubin,UrineNegativeNormalNegativeThe [facility] Physician GroupComment on above:Order Comment: Comment add Comment addPerformed By: #### VIN, FE and TIBC, [id number], LDH #### [place] [address] USAColor (U)YellowNormalYellowThe [facility] Comment on above:Order Comment: Comment add Comment addPerformed By: #### VIN, FE and TIBC, [id number], LDH #### [place] [address] USAGlucose Ql (U)NormalNormalNormalThe [facility] Physician GroupComment on above:Order Comment: Comment add Comment addPerformed By: #### VIN, FE and TIBC, [id number], LDH #### [place] [address] USAHyaline Casts,UrineNoneNormal0-8The [facility] Physician GroupComment on above:Order Comment: Comment add Comment addResult Comment: PERFORMED BY: [place] [address] PATHOLOGIST RESERVATIONS SALES AGENT PETER COFFEY M.D.Performed By: #### VIN, FE and TIBC, [id number], LDH #### [place] [address] USAKetones Ql (U)1+HighNegativeThe [facility] Comment on above:Order Comment: Comment add Comment addPerformed By: #### VIN, FE and TIBC, [id number], LDH #### [place] [address] USALeukocyte esterase Test strip Ql (U)NegativeNormalNegative The [facility] Physician GroupComment on above:Order Comment: Comment add Comment addPerformed By: #### VIN, FE and TIBC, [id number], LDH #### [place] [address] USANitrite,UrineNegativeNormalNegativeThe [facility] Phys[facility] GroupComment on above:Order Comment: Comment add Comment addPerformed By: #### VIN, FE and TIBC, [id number], LDH #### [place] [address] USAOccult Blood,UrineTraceHighNegativeThe [facility] Physician GroupComment on above:Order Comment: Comment add Comment addResult Comment: PERFORMED BY: [place] [address] PATHOLOGIST RESERVATIONS SALES AGENT PETER COFFEY M.D.Performed By: #### VIN, FE and TIBC, [id number], LDH #### [place] [address] USApH (U)6.0 [pH]Normal5.0-9.0The [facility] Comment on above:Order Comment: Comment add Comment addPerformed By: #### VIN, FE and TIBC, [id number], LDH #### [place] [address] USAProtein (U) [Mass/Vol]20 mg/dLHighNegativeThe [facility] Physician GroupComment on above:Order Comment: Comment add Comment addPerformed By: #### VIN, FE and TIBC, [id number], LDH #### [place] [address] USARBC,Dhyhx3-3Sezhdr2-6Vlf [facility] Physician GroupComment on above:Order Comment: Comment add Comment addPerformed By: #### VIN, FE and TIBC, [id number], LDH #### [place] [address] USASpecificy [place],Urine>1.734Lzts6.001-1.030The [facility] Physician GroupComment on above:Order Comment: Comment add Comment addPerformed By: #### VIN, FE and TIBC, [id number], LDH #### [place] [address] USASquamous Epithelial Cell,Zmbyu1-6Ecnf8-0Aru [facility] Physician GroupComment on above:Order Comment: Comment add Comment addPerformed By: #### VIN, FE and TIBC, [id number], LDH #### [place] [address] USAUrobilinogen,UrineNormalNormalNormalThe [facility] Physician GroupComment on above:Order Comment: Comment add Comment addPerformed By: #### VIN, FE and TIBC, [id number], LDH #### [place] [address] USAWBC,Gxkcb6-8Nowuuj5-1Eba [facility] Physician GroupComment on above:Order Comment: Comment add Comment addPerformed By: #### VIN, FE and TIBC, [id number], LDH #### [place] [address] USAFerritinon 89-83-0833Finatalw [Mass/Vol]1046.5 ng/mLHigh 11.0-306.8The [facility] Physician GroupComment on above:Order Comment: Comment add Comment addPerformed By: #### VIN, FE and TIBC, [id number], LDH #### [place] [address] USAFerritin [Mass/volume] in Serum or PlasmaOrdered By: Obaydah Daromar on 16-98-6319Tuofioty [Mass/Vol]Ferritin [Mass/volume] in Serum or TurgugZjkz96.0-306.8[facility] Memorial HospitalFolate [Mass/volume] in Serum or PlasmaOrdered By: Obaydah Daromar on 32-73-8921Hkjgxh [Mass/Vol]Folate [Mass/volume] in Serum or Plasma>5.9[facility] Memorial HospitalComment on above:Folate reference range: >5.9 ng/mlThe WHO technical consultation on folate and vitamin x02mubzafasmvwo has determined that folate concentrations lessthan 4 ng/ml are considered deficient.Iron [Mass/volume] in Serum or PlasmaOrdered By: Agatha Martinez on 16-97-0684Crvc [Mass/Vol]Iron [Mass/volume] in Serum or HgtwbdInj63-415YvmdjniusMagruder Memorial HospitalIron and TIBC Profileon 09-07-2024% Iron Saturation6.8 %Zxc43-65Yzp [facility] Physician GroupComment on above:Order Comment: Comment add Comment addPerformed By: #### VIN, FE and TIBC, [id number], LDH #### [place] [address] USAIron [Mass/Vol]11 ug/cPTrx80-380Bvc [facility] Physician GroupComment on above:Order Comment: Comment add Comment addPerformed By: #### VIN, FE and TIBC, MUVS72PJB, LDH #### [place] [id number] USATotal Iron Binding Osnknblw077 ug/lGIej286-552Fsv [facility] Physician GroupComment on above:Order Comment: Comment add Comment addPerformed By: #### VIN, FE and TIBC, YJRI66KEC, LDH #### [place] [phone] USATransferrin [Mass/Vol]115 mg/nWSuf389-667Tcm [facility] Phys[facility] GroupComment on above:Order Comment: Comment add Comment addPerformed By: #### VIN, FE and TIBC, [id number], LDH #### [place] [id number] USALDH Lactate Dehydrogenaseon 85-65-0185BTU Lactate Vrdrtsrcclegj521 U/QRamhtk456-048Otk [facility] Physician GroupComment on above: Order Comment: Comment add Comment addPerformed By: #### VIN, FE and TIBC, [id number], LDH #### [place] [phone] USALactate dehydrogenase [Enzymatic activity/volume] in Serum or Plasma by Lactate to pyOrdered By: Agatha Abrahamr on 07-73-5721SSE Lactate to pyruvate reaction [Catalytic activity/Vol]Lactate dehydrogenase [Enzymatic activity/volume] in Serum or Plasma by Lactate to on060-889ZebkbvbmtMagruder Memorial HospitalLeukoReduced RBCon 04-78-1550YgavnNnwceys RBCTRANSFUSED 09/07/24 1412[facility] Physician GroupReminderson 89-59-3934JvcuzuqapUjksyneuz From: Moira Vasquez To: KERMIT Traore Cedric; [...] ) Other: PROVIDER RELATED REMINDER:_ ( ) Ironer Or Presser ( ) Call Pharmacy ( ) Call Lab ( ) Other: Special Instructions:_ Comments:_ follow up 09/28/24 duplicate message.[facility] Hospitalerum or plasma iron binding capacity measurement (mass/volume)Ordered By: Agatha Grayomar on 41-74-4379Hzxm binding capacity [Mass/Vol]Iron binding capacity [Mass/volume] in Serum or TzyhlkYpm681-729CibcgxglwMercy Memorial Hospitalerum or plasma iron saturation measurement (mass fraction)Ordered By: Obteresita Daromar on 73-51-3512Xyay saturation [Mass fraction]Iron saturation [Mass Fraction] in Serum or PlasmaLow 20-50[facility] HospitalTransferrin [Mass/volume] in Serum or PlasmaOrdered By: Obteresita Daromar on 97-48-9992Sgbicjtihel [Mass/Vol]Transferrin [Mass/volume] in Serum or ZqwulcQta253-909NijbegnggMagruder Memorial HospitalType and Screenon 63-37-5488DCV and Rh group Nom (Bld)Blood group B Rh(D) positive NormalThe [facility] Physician GroupComment on above:Order Comment: Comment add Comment addResult Comment: PERFORMED BY: [place] [address] PATHOLOGIST RESERVATIONS SALES AGENT PETER COFFEY M.D.Vit. B12/Folate Profileon 82-31-0313Ijbcbzmiq (Vitamin B12) [Mass/Vol]1478 pg/nBMjsx698-842Vpy [facility] Comment on above:Order Comment: Comment add Comment addPerformed By: #### VIN, FE and TIBC, [id number], LDH #### [facility] [address] [place] [address] HCRRvavle41.2 ng/mLNormal>5.9The [facility] Comment on above:Order Comment: Comment add Comment addResult Comment: Folate reference range: >5.9 ng/ml The WHO technical consultation on folate and vitamin b12 deficiencies has determined that folate concentrations less than 4 ng/ml are considered deficient. PERFORMED BY: [place] [address] PATHOLOGIST RESERVATIONS SALES AGENT PETER COFFEY M.D.Performed By: #### VIN, FE and TIBC, [id number], LDH #### [facility] [address] [place] [address] USAVitamin B12 ser/plasOrdered By: Agatha Martinez on 50-87-3273Xtdvvdvix (Vitamin B12) [Mass/Vol]Vitamin B12 ser/enxzWzcx714-702 [facility] HospitalAlanine aminotransferase [Enzymatic activity/volume] in Serum or PlasmaOrdered By: PROVIDER TEMP on 31-50-6253EYF [Catalytic activity/Vol]Alanine aminotransferase [Enzymatic activity/volume] in Serum or Plasma7-52[facility] HospitalAlbumin [Mass/volume] in Serum or Plasma by Bromocresol green (BCG) dye binding methoOrdered By: PROVIDER TEMP on 34-93-1899Xbkuqmz BCG dye [Mass/Vol]Albumin [Mass/volume] in Serum or Plasma by Bromocresol green (BCG) dye binding methoLow3.5-5.7FHolzer Health SystemAlkaline phosphatase [Enzymatic activity/volume] in Serum or PlasmaOrdered By: PROVIDER TEMP on 02-01-7532ABZ [Catalytic activity/Vol] Alkaline phosphatase [Enzymatic activity/volume] in Serum or Udtyrq72-255 [facility] HospitalAspartate aminotransferase [Enzymatic activity/volume] in Serum or PlasmaOrdered By: PROVIDER TEMP on 92-37-7983IKD [Catalytic activity/Vol]Aspartate aminotransferase [Enzymatic activity/volume] in Serum or Cvxwff26-92PtjzvmejgMagruder Memorial HospitalBasophils Auto (Bld) [#/Vol]Ordered By: PROVIDER TEMP on 34-24-2788Epdvstuqx (Bld) [#/Vol]Automated basophil count0.0-0.2FHolzer Health SystemBasophils/100 WBC Auto (Bld)Ordered By: PROVIDER TEMP on 21-12-1407Lrmprnpdr/100 WBC (Bld)Automated basophil %.[facility] Memorial HospitalBilirubin.total [Mass/volume] in Serum or PlasmaOrdered By: PROVIDER TEMP on 35-61-6235Ljvtaiwyp [Mass/Vol] Bilirubin.total [Mass/volume] in Serum or Plasma0.3-1.0[facility] Memorial HospitalBlood Cultureon 22-74-4342Evbfsnku identified Cx Nom (Bld)NO GROWTH 5 DAYS PERFORMED BY: [place] [address] PATHOLOGIST RESERVATIONS SALES AGENT PETER COFFEY M.D.NormalThe [facility] Physician GroupComment on above: Performed By: #### VIN, FE and TIBC, [id number], LDH #### [facility] [address] [place] [address] USACNPNon 75-50-6951QJFJJvwbejKflkseeus Clinic ClevelandCOVID Cepheid NegativeOrdered By: David Grant on 86-39-8595GOQT-CoV-2 (COVID-19) Ab IA QlCOVID CepheidNegativeMagruder Memorial HospitalComment on above: This is a duplicate Cepheid Xpert Xpress CoV-2/Flu/RSV Plus RNA by RT-PCR result to be used for statistical tracking purpose only.COVID-19 / Flu A/B / RSV PCRon 26-67-4420FRCV-CoV-2 (COVID-19) RNA JOSE+probe Ql (Unsp spec)COVID-19 Cepheid [...] or Cepheid Disclaimer revoked sooner. PERFORMED BY: [facility] [place] [address] PATHOLOGIST RESERVATIONS SALES AGENT PETER COFFEY M.D.NormalAdventhealth Deland Physician GroupComment on above: Performed By: #### CEPHEID NEG, COVID19 FLU RSV #### [facility] [address] [place] [address] USACT chest w conon 55-13-4532PJ chest w [facility] [place] [address] [place] [address] CT Scan Report Signed Patient: Ofe Saravia MR#: [id number] 88 : 1955 Acct:[id number] Age/Sex: 68 / F ADM Date: 09/06/24 Loc: ER Room: Type: [facility] ER Attending Dr: Copies to: David Grant [...] Sanjiv Reis M.D.09/06/2024 11:13 PM Dictation Location: [place] [address] Transcribed By: COLETTE 09/06/242312 Dictated By: Sanjiv Reis II, MD 09/06/242302 Signed By: 09/06/242312[facility] Physician GroupCalcium [Mass/volume] in Serum or PlasmaOrdered By: PROVIDER TEMP on 73-53-3291Lfkohsv [Mass/Vol]Calcium [Mass/volume] in Serum or Plasma8.6-10.3FHolzer Health SystemCarbon dioxide, total [Moles/volume] in Serum or PlasmaOrdered By: PROVIDER TEMP on 79-65-7906AI2 [Moles/Vol]Carbon dioxide, total [Moles/volume] in Serum or Plasma 21.0-31.0[facility] Memorial HospitalCepheid COVID PCR Negativeon 28-44-5271QWKT-CoV-2 (COVID-19) RNA JOSE+probe Ql (Unsp spec)NegativeNormal NegativeThe [facility] Physician GroupComment on above:Result Comment: This is a duplicate Cepheid Xpert Xpress CoV-2/Flu/RSV Plus RNA by RT-PCR result to be used for statistical tracking purpose only. PERFORMED BY: [place] [address] PATHOLOGIST RESERVATIONS SALES AGENT PETER COFFEY M.D.Performed By: #### CEPHEID NEG, COVID19 FLU RSV #### [address] [address] USAChloride [Moles/volume] in Serum or PlasmaOrdered By: PROVIDER TEMP on 70-20-0414Muqyysju [Moles/Vol]Chloride [Moles/volume] in Serum or Rpizzp12-728Tlikjvdq[address] [place], [place] [address]Complete Blood Count Auto Diffon 77-48-8901Anvpftmuu (Bld) [#/Vol]0.1 10*3/uLNormal0.0-0.2The [facility] Physician GroupComment on above:Result Comment: PERFORMED BY: [place] [address] PATHOLOGIST RESERVATIONS SALES AGENT PETER COFFEY M.D.Performed By: #### VIN, FE and TIBC, [id number], LDH #### [place] [id number] USABasophils/100 WBC (Bld)0.5 %Normal.The [facility] Physician GroupComment on above:Performed By: #### VIN, FE and TIBC, [id number], LDH #### [place] [address] USAEosinophils (Bld) [#/Vol]0.1 10*3/uLNormal0.0-0.45The [facility] Physician GroupComment on above:Performed By: #### VIN, FE and TIBC, [id number], LDH #### [place] [address] USAEosinophils/100 WBC (Bld)0.5 %Normal.The [facility] Physician GroupComment on above:Performed By: #### VIN, FE and TIBC, [id number], LDH #### [place] [address] USAErythrocyte distribution width (RBC) [Ratio]14.1 %Normal 11.9-15.3The [facility] Physician GroupComment on above:Performed By: #### VIN, FE and TIBC, [id number], LDH #### [place] [address] USAHematocrit (Bld) [Volume fraction]28.8 %Low34.0-46.4The [facility] Physician GroupComment on above:Performed By: #### VIN, FE and TIBC, [id number], LDH #### [place] [address] USAHemoglobin (Bld) [Mass/Vol]9.6 g/dLLow11.8-15.4The [facility] Physician GroupComment on above:Performed By: #### VIN, FE and TIBC, [id number], LDH #### [place] [address] USALymphocytes (Bld) [#/Vol]0.5 10*3/uLLow1.00-4.8The [facility] Physician GroupComment on above:Performed By: #### VIN, FE and TIBC, [id number], LDH #### [place] [address] USALymphocytes/100 WBC (Bld)3.2 %Normal.The [facility] Physician GroupComment on above:Performed By: #### VIN, FE and TIBC, [id number], LDH #### [place] [address] USAMCH (RBC) [Entitic mass]29.1 vsTepdgf17.7-34.3The [facility] Physician GroupComment on above:Performed By: #### VIN, FE and TIBC, [id number], LDH #### [place] [address] USAMCV (RBC) [Entitic vol]87.2 lOGyftfg32-684Zhs [facility] Physician GroupComment on above:Performed By: #### VIN, FE and TIBC, [id number], LDH #### [place] [address] USAMean Corpuscular HGB Conc33.3 g/jAUqunkk61.0-35.0The [facility] Physician GroupComment on above:Performed By: #### VIN, FE and TIBC, [id number], LDH #### [place] [address] USAMonocytes (Bld) [#/Vol]1.0 10*3/uLHigh0.0-0.8The [facility] Physician GroupComment on above:Performed By: #### VIN, FE and TIBC, [id number], LDH #### [place] [address] USAMonocytes/100 WBC (Bld)21.35 %High0.00-20.00The [facility] Physician GroupComment on above:Result Comment: For adults in ED, MDW > 20.0 may be associated with a higher risk of sepsis during the first 12 hrs of hospital admissionPerformed By: #### VIN, FE and TIBC, [id number], LDH #### [place] [address] USAMonocytes/100 WBC (Bld)7.2 %Normal.The [facility] Physician GroupComment on above:Performed By: #### VIN, FE and TIBC, [id number], LDH #### [place] [address] USANeutrophils (Bld) [#/Vol]12.6 10*3/uLHigh1.8-7.7The [facility] Physician GroupComment on above:Performed By: #### VIN, FE and TIBC, [id number], LDH #### [place] [address] USANeutrophils/100 WBC (Bld)88.6 %Normal.The [facility] Physician GroupComment on above:Performed By: #### VIN, FE and TIBC, [id number], LDH #### [place] [address] USANRBC%0.0 /100{WBC}Normal0-0.5The [facility] Comment on above:Performed By: #### VIN, FE and TIBC, [id number], LDH #### [place] [address] USAPlatelet mean volume (Bld) [Entitic vol]7.9 fLNormal 6.3-10.7The [facility] Physician GroupComment on above:Performed By: #### VIN, FE and TIBC, [id number], LDH #### [place] [address] USAPlatelets (Bld) [#/Vol]521 10*3/rGNjfg458-654Wlf [facility] Physician GroupComment on above:Performed By: #### VIN, FE and TIBC, [id number], LDH #### [place] [address] USARBC (Bld) [#/Vol]3.30 10*6/uLLow3.60-5.00The [facility] Physician GroupComment on above:Performed By: #### VIN, FE and TIBC, [id number], LDH #### [place] [address] USAWBC (Bld) [#/Vol]14.2 10*3/uLHigh3.8-11.6The [facility] Physician GroupComment on above:Performed By: #### VIN, FE and TIBC, [id number], LDH #### [place] [address] USAComprehensive Metabolic Panelon 60-20-2551Tntasht [Mass/Vol]3.1 g/dLLow3.5-5.7The [facility] Physician GroupComment on above: Performed By: #### VIN, FE and TIBC, [id number], LDH #### [place] [address] USAAlbumin/Globulin [Mass ratio]0.8 {ratio}NormalThe [facility] Physician GroupComment on above:Performed By: #### VIN, FE and TIBC, [id number], LDH #### [place] [address] USAALP [Catalytic activity/Vol]96 U/FGobzkf39-290Fta [facility] Physician GroupComment on above:Performed By: #### VIN, FE and TIBC, [id number], LDH #### [place] [address] USAALT [Catalytic activity/Vol]28 U/LNormal7-52The [facility] Physician GroupComment on above:Performed By: #### VIN, FE and TIBC, [id number], LDH #### [place] [address] USAAnion gap [Moles/Vol]14.3 mmol/LNormal6.0-15.0The [facility] Physician GroupComment on above:Performed By: #### VIN, FE and TIBC, [id number], LDH #### [place] [address] USAAST [Catalytic activity/Vol]20 U/UPhrcws46-69Zfy [facility] Physician GroupComment on above:Performed By: #### VIN, FE and TIBC, [id number], LDH #### [place] [address] USABilirubin [Mass/Vol]0.6 mg/dLNormal0.3-1.0The [facility] Physician GroupComment on above:Performed By: #### VIN, FE and TIBC, [id number], LDH #### [place] [address] USACalcium [Mass/Vol]9.1 mg/dLNormal8.6-10.3The [facility] Physician GroupComment on above:Performed By: #### VIN, FE and TIBC, [id number], LDH #### [place] [address] USAChloride [Moles/Vol]99 mmol/TCqvbru67-620Naq [facility] Physician GroupComment on above:Performed By: #### VIN, FE and TIBC, [id number], LDH #### [place] [address] USACO2 [Moles/Vol]24.8 mmol/SEuhini72.0-31.0The [facility] Physician GroupComment on above:Performed By: #### VIN, FE and TIBC, [id number], LDH #### [place] [address] USACreatinine [Mass/Vol]0.58 mg/dLLow0.60-1.20The [facility] Physician GroupComment on above:Performed By: #### VIN, FE and TIBC, [id number], LDH #### [place] [address] USACreatinine Clr Calc Rcopjxvn33.88NoNovant Health Physician GroupComment on above:Result Comment: PERFORMED BY: [place] [address] PATHOLOGIST RESERVATIONS SALES AGENT PETER COFFEY M.D.Performed By: #### VIN, FE and TIBC, [id number], LDH #### [place] [address] USAGFR/1.73 sq M.predicted MDRD (S/P/Bld) [Vol rate/Area] mL/min/{1.73_m2}NormalThe [facility] Physician GroupComment on above:Performed By: #### VIN, FE and TIBC, [id number], LDH #### [place] [address] USAGlobulin (S) [Mass/Vol]3.9 g/dLOrlando Health Horizon West Hospital Physician GroupComment on above:Performed By: #### VIN, FE and TIBC, [id number], LDH #### [facility] [address] [place] [address] USAGlucose [Mass/Vol]99 mg/gEDsperk78-623Lyu [facility] Physician GroupComment on above:Result Comment: Random Glucose Reference Range is dependent on time and content of last meal. Glucose of more than 200 mg/dL in a nonstressed, ambulatory subject supports the diagnosis of Diabetes Mellitus. ADA recommended reference rangePerformed By: #### VIN, FE and TIBC, [id number], LDH #### [place] [address] USAPotassium [Moles/Vol]4.1 mmol/LNormal3.5-5.1The [facility] Physician GroupComment on above:Performed By: #### VIN, FE and TIBC, [id number], LDH #### [place] [address] USAProtein [Mass/Vol]7.0 g/dLNormal6.4-8.9The [facility] Physician GroupComment on above:Performed By: #### VIN, FE and TIBC, [id number], LDH #### [place] [address] USASodium [Moles/Vol]134 mmol/BHzh425-057Cxy [facility] Physician GroupComment on above:Performed By: #### VIN, FE and TIBC, [id number], LDH #### [place] [address] USAUrea nitrogen [Mass/Vol]13 mg/dLNormal7-25The [facility] Physician GroupComment on above:Performed By: #### VIN, FE and TIBC, PYTZ29KCF, LDH #### [place] [address] USACreatinine [Mass/volume] in Serum or PlasmaOrdered By: PROVIDER TEMP on 97-88-8554Idzyukleyh [Mass/Vol]Creatinine [Mass/volume] in Serum or PlasmaLow0.60-1.20[facility] HospitalEosinophils Auto (Bld) [#/Vol]Ordered By: PROVIDER TEMP on 87-31-7214Nlpasnvrpak (Bld) [#/Vol] Automated eosinophil count0.0-0.45[facility] Eosinophils/100 WBC Auto (Bld)Ordered By: PROVIDER TEMP on 09-06-2024 Eosinophils/100 WBC (Bld)Automated eosinophil %.[facility] Memorial HospitalErythrocyte distribution width Auto (RBC) [Ratio]Ordered By: PROVIDER TEMP on 99-20-2628Lidurvkltis distribution width (RBC) [Ratio]Erythrocyte distribution width [Ratio] by Automated count11.9-15.3FHolzer Health SystemGlobulin Calc (S) [Mass/Vol]Ordered By: PROVIDER TEMP on 09-06-2024 Globulin (S) [Mass/Vol]Serum globulin measurement by calculation (mass/volume) [facility] HospitalGlucose [Mass/volume] in Serum or PlasmaOrdered By: PROVIDER TEMP on 12-91-0054Xpmyclj [Mass/Vol]Glucose [Mass/volume] in Serum or Mbwzaw03-585ZnwukzfpsMagruder Memorial HospitalComment on above:ADA recommended reference rangeRandom Glucose Reference Range is dependent on time and content of last meal. Glucose of more than 200 mg/dL in a nonstressed, ambulatory subject supports the diagnosisof Diabetes Mellitus.Hematocrit Auto (Bld) [Volume fraction]Ordered By: PROVIDER TEMP on 34-44-0474Urhopdvcya (Bld) [Volume fraction]Hematocrit [Volume Fraction] of Blood by Automated countLow 34.0-46.4FHolzer Health SystemHemoglobin [Mass/volume] in Blood Ordered By: PROVIDER TEMP on 35-15-4944Wqzgbsxizv (Bld) [Mass/Vol]Hemoglobin [Mass/volume] in NhwqgUjv68.8-15.4FHolzer Health SystemLaboratory - Microbiology and Antimicrobial susceptibilityOrdered By: David Grant on 17-23-4664Wmvbegjr identified Cx Nom (Bld)NO GROWTH 5 DAYSMagruder Memorial HospitalBacteria identified Cx Nom (Bld)NO GROWTH 5 DAYSMagruder Memorial HospitalLactate [Moles/volume] in Serum or PlasmaOrdered By: David Grant on 21-55-3235Yfqywll [Moles/Vol]Lactate [Moles/volume] in Serum or Plasma0.5-1.9[facility] HospitalComment on above:Lactic Acid reference range has been updated to 0.5 1.9 mmol/L and the critical range of 2.0 or greater.Lactic Acidon 09-20-4535Thqpilg [Moles/Vol]1.3 mmol/LNormal0.5-1.9 [facility] Physician GroupComment on above:Result Comment: Lactic Acid reference range has been updated to 0.5 ? 1.9 mmol/L and the critical range of 2.0 or greater. PERFORMED BY: [address] [place] [address] PATHOLOGIST RESERVATIONS SALES AGENT PETER COFFEY M.D.Performed By: #### VIN, FE and TIBC, UWLO87SOO, LDH #### [place] [address] USALeukocytes [#/volume] corrected for nucleated erythrocytes in Blood by Automated counOrdered By: PROVIDER TEMP on 93-73-0149WSQ corrected for nucl RBC Auto (Bld) [#/Vol]Leukocytes [#/volume] corrected for nucleated erythrocytes in Blood by Automated counHigh3.8-11.6FHolzer Health SystemLymphocytes Auto (Bld) [#/Vol]Ordered By: PROVIDER TEMP on 09-06-2024 Lymphocytes (Bld) [#/Vol]Lymphocytes [#/volume] in Blood by Automated countLow 1.00-4.8[facility] HospitalLymphocytes/100 WBC Auto (Bld)Ordered By: PROVIDER TEMP on 10-98-8256Jcrwkzxakau/100 WBC (Bld)Lymphocytes/100 leukocytes in Blood by Automated count.[facility] Auto (RBC) [Entitic mass]Ordered By: PROVIDER TEMP on 40-05-4092XNQ (RBC) [Entitic mass]MCH [Entitic mass] by Automated count24.7-34.3FAvita Health System Bucyrus HospitalHC Auto (RBC) [Mass/Vol]Ordered By: PROVIDER TEMP on 54-34-6854HSCD (RBC) [Mass/Vol]MCHC [Mass/volume] by Automated count32.0-35.0[facility] HospitalMCV Auto (RBC) [Entitic vol]Ordered By: PROVIDER TEMP on 06-77-7740PAB (RBC) [Entitic vol]MCV [Entitic volume] by Automated -630 [facility] HospitalMonocyte distribution width [Entitic volume] in Blood by AutomatedOrdered By: PROVIDER TEMP on 93-81-8404Maiqmgdk distribution width Auto (Bld) [Entitic vol]Monocyte distribution width [Entitic volume] in Blood by AutomatedHigh0.00-20.00[facility] HospitalComment on above:For adults in ED, MDW > 20.0 may be associated with a higher risk of sepsis during the first 12 hrs of hospital admissionMonocytes Auto (Bld) [#/Vol] Ordered By: PROVIDER TEMP on 30-34-2502Bmhwrvxqg (Bld) [#/Vol]Automated blood monocyte countHigh0.0-0.8[facility] HospitalMonocytes/100 WBC Auto (Bld)Ordered By: PROVIDER TEMP on 90-33-5431Vyrpcxnnb/100 WBC (Bld)Automated monocyte %.[facility] HospitalNeutrophils Auto (Bld) [#/Vol] Ordered By: PROVIDER TEMP on 65-48-3001Nzunmspyfsg (Bld) [#/Vol]Neutrophils [#/volume] in Blood by Automated countHigh1.8-7.7FHolzer Health SystemNeutrophils/100 WBC Auto (Bld)Ordered By: PROVIDER TEMP on 09-06-2024 Neutrophils/100 WBC (Bld)Automated neutrophil %.[facility] HospitalNo Panel InformationOrdered By: PROVIDER TEMP on 67-32-4008Aknkkcgmq GFR (CKD-EPI)> 60.0 mL/MinMagruder Memorial HospitalPharmacy Creatinine Clearance (Chem81.88[facility] HospitalNucleated erythrocytes [Presence] in Blood by Automated countOrdered By: PROVIDER TEMP on 09-06-2024 Nucleated RBC Auto Ql (Bld)Nucleated erythrocytes [Presence] in Blood by Automated count0-0.5FHolzer Health SystemPlatelet mean volume Auto (Bld) [Entitic vol]Ordered By: PROVIDER TEMP on 42-98-2302Bvqkbfqu mean volume (Bld) [Entitic vol]Platelet mean volume [Entitic volume] in Blood by Automated count6.3-10.7FHolzer Health SystemPlatelets Auto (Bld) [#/Vol] Ordered By: PROVIDER TEMP on 64-81-3227Yshzaodzn (Bld) [#/Vol]Platelets [#/volume] in Blood by Automated dcjciYpuv789-484VyknceqgoMagruder Memorial HospitalPotassium [Moles/volume] in Serum or PlasmaOrdered By: PROVIDER TEMP on 36-17-3798Uoosvtyme [Moles/Vol]Potassium [Moles/volume] in Serum or Plasma 3.5-5.1FHolzer Health SystemProtein [Mass/volume] in Serum or Plasma Ordered By: PROVIDER TEMP on 09-92-2857Jholgiz [Mass/Vol]Protein [Mass/volume] in Serum or Plasma6.4-8.9[facility] HospitalRBC Auto (Bld) [#/Vol] Ordered By: PROVIDER TEMP on 61-33-6254XFE (Bld) [#/Vol]Erythrocytes [#/volume] in Blood by Automated countLow3.60-5.00[facility] Respiratory specimen influenza A virus, influenza B virus, respiratory syncytical virOrdered By: David Grant on 65-57-9509TEJV-CoV-2 (COVID-19) RNA JOSE+probe Ql (Unsp spec)Respiratory specimen influenza A virus, influenza B virus, respiratory syncytical [facility] HospitalARS-CoV-2 (COVID-19) RNA JOSE+probe Ql (Unsp spec)Respiratory specimen influenza A virus, influenza B virus, respiratory syncytical [facility] Serum or plasma albumin/globulin mass ratioOrdered By: PROVIDER TEMP on 93-59-8083Vitzcfb/Globulin [Mass ratio]Serum or plasma albumin/globulin mass ratioMercy Memorial Hospitalerum or plasma anion gap determination Ordered By: PROVIDER TEMP on 43-48-6187Qsihz gap [Moles/Vol]Serum or plasma anion gap determination6.0-15.0Mercy Memorial Hospitalodium [Moles/volume] in Serum or PlasmaOrdered By: PROVIDER TEMP on 87-99-4603Dnpqrp [Moles/Vol]Sodium [Moles/volume] in Serum or SvoikvUkj506-881MymqftfyvMagruder Memorial HospitalUrea nitrogen [Mass/volume] in Serum or PlasmaOrdered By: PROVIDER TEMP on 29-47-6934Yltc nitrogen [Mass/Vol]Urea nitrogen [Mass/volume] in Serum or Plasma7-25[facility] HospitalWBC Auto (Bld) [#/Vol]Ordered By: PROVIDER TEMP on 63-83-5227BNB (Bld) [#/Vol]Leukocytes [#/volume] in Blood by Automated countHigh3.8-11.6FHolzer Health SystemCNPNon 09-05-2024 CNPNNormalOhiohealth Grant Medical CenterCNPNon 01-83-8059FMBOWxhimsLpahlrhmo Clinic ClevelandMR head/brain wo/w conon 99-90-6815HW head/brain wo/w [facility] [place] [address] MRI Report Signed Patient: Ofe Saravia MR#: [id number] : 1955 Acct:[id number] Age/Sex: 68 / F ADM Date: 09/01/24 Loc: MR Room: Type: [facility] Attending Dr: Sarabjit Crowley DO Copies to: [...] Fran Osorio MD 09/01/241599 Signed By: 09/01/[address] [place] [address] Physician GroupMagnetic resonance imaging reportOrdered By: Fran Osorio on 87-36-7389Hunjf reportMARION HOSPITAL Main [place] [address] [place] [address] MRI Report Signed Patient: Ofe Saravia MR#: [id number] : 1955 Acct:[id number] Age/Sex: 68 / F ADM Date: 5 Loc: MR Room: Type: [facility] Attending Dr: Sarabjit Crowley DO Copies to: [...] Fran Osorio MD 09/01/241599 Signed By: 09/01/24 [facility]0 [facility] Work Phone: CNOVon 08-24-0296CBKFRzirqdFdpvbqllxThe [facility] CNPNon 54-38-9406NUVEXsrxuoBvpcnqgqt Clinic ClevelandCNNURSEon 18-80-6010DZZESRM NormalGood Samaritan Hospital ClevelandCNPNon 09-33-7558LVDAKtlhddSrqjjcjgk Clinic ClevelandCNOVon 69-27-1102ORIWAljoubSjxvmoslr Clinic Clemercy healthCNOVSPon 94-50-5987ZYGJZKAywolkGgbnimftj [facility] Steele CreekCNCNPATEDon 04-80-7445KTTUNWYVB NormalGood Samaritan Hospital ClevelandCNOVon 24-18-4862ZCQTVvvdauAjjubchvs Clinic ClevelandCNPNon 16-68-8600RRJUJequerHooiujeee Clinic ClevelandCNOVon 08-23-2024 CNOVNormalCleveland [facility] Steele CreekCNOVSPon 95-07-6896FOTUBRFsfsuzGonckqrmq Clinic ClevelandREFERRAL FOR ADDITIONAL BIOMARKER AND MOLECULAR TESTINGOrdered By: Malaika Vargas on 06-06-7055BYOTXVMtfleeqzw ClinicComment on above:Request has been received for evaluation and the results will be issued separately. [facility] HospitalREFERRAL FOR ADDITIONAL BIOMARKER AND MOLECULAR TESTINGon 25-35-3014NLQJFCGI FOR ADDITIONAL BIOMARKER AND MOLECULAR TESTINGTrinity Health System on above:Order Comment: Specimen Type: TISSUE SPECIMENOrdering Facility: [facility] Address: [address] [place], [place] [address]Result Comment: Request has been received for evaluation and the results will be issued separately.Performed By: #### APMOL ####[facility] [id number] STATES OF [facility] CAMPUSCNOVon 86-39-5886NKWDXuhyqtBuhhonutdThe Bellevue HospitalALK (D5F3)on 07-99-2146PZZ INTERPRETATIONEquivocalAbnoLouis Stokes [facility] on above:Order Comment: Specimen Type: TISSUE SPECIMENOrdering Facility: [facility] Address: [address] [place], [place] [address]Performed By: #### [id number] ####[facility] LABIA [id number] [place] [address] [place] BLOCK UPC6PkmuxsQywkbdcuaLouis Stokes [facility] on above:Order Comment: Specimen Type: TISSUE SPECIMENOrdering Facility: [facility] Address: [address] [place], [place] [address]Performed By: #### [id number] ####[facility] LABCLIA [id number] [address] OF [facility] CASE NUMBER ALK [id number] Hospital [facility] on above:Order Comment: Specimen Type: TISSUE SPECIMENOrdering Facility: [facility] Address: [address] [place], [place] [address]Performed By: #### [id number] ####[facility] LABCLIA [id number] [address] STATES OF AMERICAFIXATIVEFormalin, 10% Neutral BufferedNormalCSCCI Hospital [facility] on above:Order Comment: Specimen Type: TISSUE SPECIMENOrdering Facility: [facility] Address: [address] [place], [place] [address]Performed By: #### [id number] ####[facility] LABCLIA [id number] [place] [address] [place] AMERICABRIEF OP NOTon 11-10-8599SUYEZ OP NOTNormal [facility] BIOPSY SOFT TISS MASS/MUSCLEon 24-28-3556LJ BIOPSY SOFT TISS MASS/MUSCLENormalCSuburban Community Hospital & Brentwood HospitalFISH FOR ALK (2P23) FFPET NSCLCon 24-34-7243WROV FOR ALK (2P23) FFPET NSCLCNormalCSCCI Hospital [facility] on above:Order Comment: Specimen Type: TISSUE SPECIMENOrdering Facility: [facility] Address: [address] [place], [place] [address]Result Comment: FISH for ALK (2p23) FFPET NSCLCLaboratory Accession Number: [id number]: [id number]/Part ID: [id number] Type: FFPETSample Description: SOFT TISSUE, RIGHT SHOULDER, [...] ANDRADE, et al. Anaplastic Lymphoma KinaseInhibition in Ugl-Gxgim-Rdva Lung Cancer. N Engl J Niw0349;363:7752-4117.2) Gregorio NI, Ramon PT, Holden MB, et [...] adenocarcinoma in thewestern population. Clin Cancer Res 2009;15:4849-9290.LIMITATIONS:This test will not identify all rearrangements involving [...] was developed and its performance characteristics determinedby [facility]. Ithas not been cleared or approved by the FDA. [facility] Hospitalthology [facility] Laboratory Medicine Department is regulated under CLIAas certified to perform high-complexity testing. This test is used forclinical purposes. It should notbe regarded as investigational or forresearch.Interpretation performed at [facility], [address] [place] [address]. [place] Number: [id number] reviewed by Yolanda Lott MD, PhDPerformed By: #### FSHLNG ####CLARITY CIARA TODD [id number] [facility] [id number] [place] [address] STATES OF AMERICAFISH FOR RET (10Q11.21)on 66-20-2995QNEA FOR RET (10Q11.21)NormalOhiohealth Grant Medical Center Comment on above:Order Comment: Specimen Type: TISSUE SPECIMENOrdering Facility: [facility] Address: [address] [place], [place] [address]Result Comment: FISH for RET (10q11.21)Laboratory Accession Number: [id number]: [id number]/Part ID: [id number] Type: FFPETSample Description: SOFT TISSUE, RIGHT SHOULDER, CORE BIOPSYReceived Date: 09/15/2024Number of nuclei scored: 50RESULT: Result Reference RangeRET Rearrangement 6% (0-14%)INTERPRETATION:A rearrangement involving the RET gene at 10q11.21 was not detected.Clinical and pathological correlation is recommended.Nomenclature: nuc demetrio(RETx3~11)[35/50]METHODOLOGY:A dual color,break apart probe specific to the RET gene at 10q11.21([employer], [place], [place]) was used in this interphase FISHassay to detect the presence of a RET rearrangement. The slides werescored manually.REFERENCES:Katheryn A, Skinner L, Hasanoyoni A, et al. Response to Cabozantinib inpatients with RETfusion-positive lung adenocarcinomas. Cancer Phhpdp8278;3:630-52. Michelle ERICKSON. RET revisited: expanding the oncogenic portfolio. NatRev Cancer 2014;14:173-863. Mejia C, et al. Molecular methods for somatic mutation testing inlung adenocarcinoma: EGFR and beyond. Trans Lung Cancer Nlm1993;4:126-414. National Comprehensive Cancer Network (NCCN) Clinical PracticeGuidelines in Oncology, Non-Small CellLung Cancer, Available atNDCN.orgLIMITATIONS:This test will not identify all rearrangements in [...] was developed and its performance characteristics determinedby [facility]'s [facility]. Ithas not been cleared or approved by the FDA. [facility] Hospitalthology and Laboratory Medicine Department is regulated under CLIAas certified to perform high-complexity testing. This test is used forclinical purposes. It should not be regarded as investigational or forresearch.Interpretation performed at [facility], [address] [place] [address]. CLIA Number: [id number] reviewed by Elizabeth sheppard MD, PhDPerformed By: #### RET ####CLARITY ILLUMINA LIMSCLIA [id number] [address] OF AMERICAHISTORY PHYSICAL on 12-44-3870QDBTKTW PHYSICALNormalCSuburban Community Hospital & Brentwood HospitalNROSE MEDICAL [facility]ENTER PROGon 33-92-5120TWMKASG PROGNormalOhiohealth Grant Medical CenterNROSE MEDICAL CENTER PROGNormal [facility] Grant Medical CenterPD-L1 22C3on 06-18-5898JC BIOMARKER DISCLAIMERNormal Ohiohealth Grant Medical CenterComment on above:Order Comment: Specimen Type: TISSUE SPECIMENOrdering Facility: [facility] Address: [address] [place], [place] [address]Result Comment: Laboratory Developed Test (LDT) Disclaimer:Performance characteristics of immunohistochemical, immunofluorescent and chromogenic in-situ hybridization tests have been determined by the performing laboratory within [facility]???s Alexei Bowers Pathology and Laboratory Medicine Department ([facility], [facility], [facility], [facility], [facility], [facility], or [facility]) in a manner consistent with CLIA requirements. One or more of these tests have not been cleared or approved by the FDA.RT-[facility]M is regulated under CLIA as qualified to perform high- complexity testing. These tests are used for clinical purposes. They should not be regarded as investigational or for research. Positive and negative controls stain appropriately.Performed By: #### [id number] ####[facility] LABCLIA [id number] [address]Performed By: #### [id number] ####[facility] LABCLIA [id number] [address] AP BLOCK KIY0EnanykWztrfvhsjLouis Stokes [facility] on above:Order Comment: Specimen Type: TISSUE SPECIMENOrdering Facility: [facility] Address: [address] [place], [place] [address]Performed By: #### [id number] ####[facility] LABCLIA [id number] [address]ETBIOMARKER INTERPRETATION COMMENT AND REFERENCE RANGETrinity Health System on above:Order Comment: Specimen Type: TISSUE SPECIMENOrdering Facility: [facility] Address: [address] [place], [place] [address]Result Comment: Interpretation standard:TPS: The Tumor Proportion Score [...] for additional information.KEYTRUDA - (https://www.keytrudahcp.com/prescribing-information/)LIBTAYO - (https:// www.[employer].fav.or.it/sites/default/files/Libtayo_FPI.pdf)Performed By: #### [id number] ####[facility] LABCLIA [id number] [address] [place], [place] [address] [place] OF AMERICAResult Comment: Reference range [...] Kinase Inhibitors. Guideline From the College of Prydeinig Pathologists, the International Association for the Study of Lung Cancer, and the Association for Molecular Pathology. Arch PatholLab Med. 2018 Sep;142(3):321-346. doi: 10.5858/arpa.8146-5472-CF. Epub 2017Aug 10. PMID: 81102978.2. Mera BRADSHAW., Prakash ERICKSON., Arian M., et al. An International Interpretation Study Using the ALK IHC Antibody D5F3 and a Sensitive Detection Kit Demonstrates High Concordance between ALK IHC and ALK FISH and between Evaluators. J Thorac Oncol. 2014 November;9(5):631-8. doi: 10.1097/JTO.0121643625445083. PMID: 96922818; PMCID: UNG9591147.3. Antoni Rutledge., Filiberto Ibrahim, Rl Cardona, et al. A Sensitive ALK Immunohistochemistry Impregnating Tank Operator Diagnostic Test Identifies Patients Eligible for Treatment with Titus otinib. J Thorac Oncol. 2017 November;12(5):804-813. doi: 10.1016/j.jtho.2017.01.020. Epub 2016Aug 17. PMID: 44051223.Performed By: #### [id number] ####[facility] LABCLIA [id number] [address] STATES OF AMERICABIOMARKER METHODNormalCSuburban Community Hospital & Brentwood Hospital Comment on above:Order Comment: Specimen Type: TISSUE SPECIMENOrdering Facility: [facility] Address: [address] [place] [address] Performed By: #### [id number] ####[facility] LABCLIA [id number] [address] [place] [address] [place] Performed By: #### [id number] ####[facility] LABCLIA [id number] [address] [place] [address] [place] [facility] [place] Comment on above:Order Comment: Specimen Type: TISSUE SPECIMENOrdering Facility: [facility] Address: [address] [place] [address] Performed By: #### [id number] ####[facility] LABCLIA [id number] [address] [address] [place] FINAL PERFORMING LABNormalCSuburban Community Hospital & Brentwood HospitalComstraith hospital for special surgery on above:Order Comment: Specimen Type: TISSUE SPECIMENOrdering Facility: [facility] Address: [address] [place], [place] [address]Result Comment: Diagnostic interpretation performed at: [facility], [address] [place] [address] [place] [address] CLIA# [id number] Director: Josué Bach MDElectronically signed out by: CLAUDIA Hansenerformed By: #### [id number] ####[facility] LABCLIA [id number] [address] [place] [address] [place] AMERICAResult Comment: Diagnostic interpretation performed at: [facility], [facility] [place] [address] CLIA# [id number] Director: Josué Bach MDElectronically signed out by: CLAUDIA Peterserformed By: #### [id number] ####[facility] LABCLIA [id number] [address] [place] [address] [place] AMERICAFIXATIVENormalCSuburban Community Hospital & Brentwood HospitalComstraith hospital for special surgery on above:Order Comment: Specimen Type: TISSUE SPECIMENOrdering Facility: [facility] Address: [address] [place], [place] [address]Performed By: #### [id number] ####[facility] LABCLIA [id number] [place] [address] [place] AMERICAPD-L1 22C3 TPS (LUNG) INTERPRETATIONPositiveAbnoLouis Stokes [facility] Center on above:Order Comment: Specimen Type: TISSUE SPECIMENOrdering Facility: [facility] Address: [address] [place], [place] [address]Performed By: #### [id number] ####[facility] LABCLIA [id number] [place] [address] [place] AMERICAPD-L1 TUMOR TYPEOther (See Comment)[facility] on above:Order Comment: Specimen Type: TISSUE SPECIMENOrdering Facility: [facility] Address: [address] [place], [place] [address]Result Comment: See original report Performed By: #### [id number] ####[facility] LABCLIA [id number] [place] [address] [place] TUMOR PROPORTION SCORE (TPS)50NormPeoples Hospital on above: Order Comment: Specimen Type: TISSUE SPECIMENOrdering Facility: [facility] Address: [address] [place], [place] [address]Performed By: #### [id number] ####[facility] LABCLIA [id number] [place] [address] [place] AMERICAPT EDon 53-19-2335CI EDNormalCSuburban Community Hospital & Brentwood HospitalROS1 GENE REARRANGEMENTon 64-23-6753WPRD FOR ROS1 (6Q22)[facility] on above:Order Comment: Specimen Type: TISSUE SPECIMENOrdering Facility: [facility] Address: [address] [place], [place] [address]Result Comment: FISH for ROS1(6q22)Laboratory Accession Number: [id number]: [id number]/Part ID: [id number] Type: FFPETSample Description: SOFT TISSUE, RIGHT SHOULDER, CORE BIOPSYReceived Date: 09/15/2024Number of nuclei scored: 50RESULT: Result Reference RangeROS1 Rearrangement 0% (0-14%)INTERPRETATION:A rearrangement involving the ROS1 gene at 6q22.1 was not detected.Clinical and pathological correlation is recommended.Nomenclature: nuc demetrio(ROS1x3~13)[1650]/(ROS1x1)[50]METHODOLOGY:A dual color, break apart probe specific to the ROS1 gene at 6q22.1([employer], [place], [place]) was used in this [...] adenocarcinoma: EGFR and beyond. Transl Lung Cacer Djg9592;4:126-414) Pamela M, Bethanie A, Soraya C, et [...] test wasdeveloped and its performance characteristics determinedby [facility]'s [facility]. Ithas not been cleared or approved by the FDA. [facility] Hospitalthology and Laboratory Medicine Department is regulated under CLIAas certified to perform high-complexity testing. This test is used forclinical purposes. It should not be regarded as investigational or forres earch.Interpretation performed at [facility], [address] [place] [address]. CLIA Number: [id number] reviewed by Elizabeth Munoz MD, PhD Performed By: #### ROS1 ####CLARITY ILLUMINA LIMSCLIA [id number] [address] STATES OF [facility]TH CAMPUSSURGICAL PATHOLOGYon 04-50-0726VTME REPORTNoLouis Stokes [facility] on above:Order Comment: Specimen Type: TISSUE SPECIMENOrdering Facility: [facility] Address: [address] [place], [place] [address]Result Comment: Surgical Pathology Report Case: [id number] Provider: Mayi Araiza MD Collected: 08/10/2024 09:05 AMOrdering Location: [place] [address] Received: 08/10/2024 05:42 PMPathologist: Carla Worley MDSpecimen: Bone and Soft Tissue, lytic osseous lesion with soft tissue mass, bx soft tissue componentPerformed By: #### S ####[facility] LABCLIA [id number] [place] [address] [place] CLINICAL HISTORYsoft tissue and bone lesion in the right shoulderNoThe Bellevue HospitalComstraith hospital for special surgery on above:Order Comment: Specimen Type: TISSUE SPECIMENOrdering Facility: [facility] Address: [address] [place], [place] [address]Performed By: #### S ####[facility] LABCLIA [id number] [place] [address] [place] OF AMERICADIAGNOSIS COMMENTNoLouis Stokes [facility] on above:Order Comment: Specimen Type: TISSUE SPECIMENOrdering Facility: [facility] Address: [address] [place], [place] [address]Result Comment: The history of a left upper [...] have been determined by the performing laboratory within[facility]???s [facility] Pathology and Laboratory Medicine Department ([facility], [facility], [facility], [facility], [facility], [facility], or [facility]) in a manner consistent with CLIA requirements. One or more of these tests have not been cleared or approved by the FDA. RT-PLM is regulated under CLIA as qualified to perform high-complexity testing. These tests are used for clinical purposes. They should not be regarded as investigational or for research. Positive and negative controls stain appropriately.Performed By: #### S ####[facility] LABCLIA [id number] [address] DIAGNOSISNormPeoples Hospital on above:Order Comment: Specimen Type: TISSUE SPECIMENOrdering Facility: [facility] Address: [address] [place], [place] [address]Result Comment: A. Soft tissue, right shoulder, core biopsy:- Metastatic carcinoma with squamous differentiation. See comment. Performed By: #### S ####[facility] LABIA [id number] [address] PERFORMING LABNormPeoples Hospital on above:Order Comment: Specimen Type: TISSUE SPECIMENOrdering Facility: [facility] Address: [address] [place] [id number] Comment: Diagnostic interpretation performed at: [facility], [address] [place] [address], [facility] [place] [address] CLIA# [id number] Director: CLAUDIA Rojaserformed By: #### S ####[facility] LABIA [id number] [place] [address] [place] OF AMERICAGROSS DESCRIPTIONNormalCSCCI Hospital [facility]ima on above:Order Comment: Specimen Type: TISSUE SPECIMENOrdering Facility: [facility] Address: [address] [place], [place] [address]Result Comment: A. Bone and Soft TissueReceived in formalin labeled lytic osseous lesion with softtissue mass are multiple white-hernández rubbery to slightly firm cylindrical segments of tissue aggregating to 2.0 x 0.7 x 0.1 cm. The specimens are totally submitted in formalin in 1 cassette.KVB August 11, 2024 8:57 AMGross examination performed at [facility], [address] [place], [place] [address]Performed By: #### S ####[facility]IAL HOSPITALIA [id number] [place] [address] [place] OF AMERICATARGETED ONCOLOGY PANEL NEXT GENERATION SEQUENCING OTHERon 39-09-9306JXFCQVNZ ONCOLOGY PANEL NEXT GENERATION SEQUENCING OTHERNormal [facility] on above:Order Comment: Specimen Type: TISSUE SPECIMENOrdering Facility: [facility] Address: [address] [place], [place] [address]Result Comment: [facility] Targeted Oncology PanelLaboratory Accession Number: [id number] #: [id number] #: [id number] Type: FFPET% Tumor: 75CASE SUMMARY:A KRAS G12C [...] only positive genes are reported.RESULTS:Single Nucleotide Vari ants/Indels:KRAS\X09\p.Euc94Uzt\X09\NM_033360.2:c.34G>T\X09\34.1% VAF, Depth 6282x, Ga1TQ14\X09\p.Siu702Orm\X09\NM_000546.5:c.839G>A\X09\50.5% VAF, Depth 4292x, Gr7Lmpo Number Gains: None detectedRNA Fusions and Aberrant Transcripts: None detectedVARIANT INTERPRETATIONS:KRAS p.Vvg98Ydl NM_033360.2:c.34G>TThe clinically significant G12C variant in KRAS was detected in thisspecimen. KRAS theo-oncogene encodes for a small GTPase familyprotein, K-Vega, which plays landry role cell proliferation regulation.KRAS hot spot mutations, especially in exon 2, and amplifications arecommon in colorectal, non-small cell lung and pancreatic cancers(PMID: 04338251, 10722255, 95593354).Biomarker Therapy AssociationsBenefit: COLORECTAL CANCER: [Adagrasib + Cetuximab, Adagrasib +Panitumumab, Sotorasib + Cetuximab, Sotorasib + Panitumumab]; NON-SMALL CELL LUNG CANCER: [Sotorasib, Adagrasib]; HEPATOBILIARY CANCER:[Adagrasib]; PANCREATIC ADENOCARCINOMA: [Adagrasib, Sotorasib];AMPULLARY CANCER: [Sotorasib, Adagrasib]Resistance: COLORECTAL CANCER: [Cetuximab, Panitumumab, Tucatinib +Trastuzumab]TP53 p.Mmn839Tjb NM_000546.5:c.839G>AThe clinically significant R280K variant in TP53 was detected in thisspecimen. TP53 encodes for tumor protein p53, a sole sewer hand factorinvolved in DNA damage pathway, cell cycle arrest and apoptosis (PMID:03365235). Germline mutations occur in cancer predisposition syndromeand Li-Fraumeni syndrome (PMID: 78456850). Somatic missense and lossof function mutations are common in every tumor type and some impartresistance to chemotherapy (PMID: 5703660).Variants ofuncertain significance detected:None detectedRegions with coverage <100x:NoneMETHODOLOGY:Extracted nucleic acid from the specimen, both DNA and RNA, weresubjected to separate targeted amplification reactions, using AmplCerana Beveragestom primers designed by [employer] ([employer], [place], [place]). Hotspots and selected fusions in generegions listed below were sequenced using Illumina ([place], [place])2x150 paired-end cycle chemistry. A customized bioinformaticsanalytical platform was used for read alignment (Genome HoqazEGYw03/hg19), variant identification and annotation. Sing le nucleotidevariants [...] NM_000044 6, 8BRAF NM_004333 11, 15CDK4 NM_000075 6HBYLS8 NM_001904 3, 7-8DDR2 NM_006182 5EGFR NM_005228 3, 7, 12, 15, 18-84HGKJ1 NM_004448 8, 17- 31XROI4 NM_001982 2-3, 6, 8-9ERBB4 NM_005235 18ESR1 NM_000125 8FGFR1 NM_023110 12-14, 16-11TTPG9 NM_000141 7-9, 12, 31LMSC5 NM_000142 7, 9, 14, 52ESL12 NM_002067 4, 5GNAQ NM_002072 4, 5GNAS NM_080425 8H3-3A NM_002107 2H3-3B NM_005324 2HRAS NM_005343 2,3IDH1 NM_005896 4IDH2 NM_002168 4JAK1 NM_002227 14- 16JAK2 NM_004972 14JAK3 NM_000215 11-12, 15KIT NM_000222 8-11, 13, 17KRAS NM_033360 2-6CDF4K5 NM_002755 2-3, 3JHS2S1 NM_030662 2MET NM_000245 14, 16, 19MTOR NM_004958 30, 39-40, 43,47, 53NRAS NM_002524 2-4PDGFRA NM_006206 12, 14, 67VXA0IV NM_006218 2, 5-6, 8, 10, 14, 19, 21RAF1 NM_002880 7, 12RET NM_020975 11, 13, 15-16ROS1 NM_002944 36, 38SMO NM_005631 4, 6, 8-9TERT NM_198253 P gdsoudfFS84 NM_000546 5, 7, 8*Only hotspots within designated exons are covered, full exons are notsequenced.Genes reported for copy number gains: ALK, AR BRAF, CCND1, CDK4, CDK6,EGFR, ERBB2, FGFR1, FGFR2, FGFR3, FGFR4, KIT, KRAS, MET, MYC, MYCN,PDGFRA, GCA0ZVLatvwvs detected in RNA:Gene Detected FusionsABL1 EML1::FOA6BJG6 MAGI3::ZDL5ALZ A2M::ALK, ACTG2::ALK, ALK::PTPN3, ATIC::ALK, Y1zyw36::ALK, CARS::ALK, CLIP4::ALK, CLTC::ALK, DCTN1::ALK, EML4::ALK, SRK4LQJ8::ALK, HIP1::ALK, KIF5B::ALK, KLC1::ALK, MEMO1::ALK, NCOA1::ALK, XHOEH1O::ALK, RANBBP2::ALK, FKC20D8_BDM24Y::ALK, SMEK2::ALK, STRN::ALK, TFG::ALK, TPM1::ALK, TPM3::ALK, TPM4::ALK, TPR::ALK, TRAF1::ALK, VCL::ALKAXL BRIGIDO::MBIPBRAF AGTRAP:BRAF, AKAP9::BRAF, CDC27::BRAF, NQY827R::BRAF, FCHSD1::BRAF, LZFG3719::BRAF, PAPSS1::BRAF, HBS42N0::BRAF, SND1::BRAF, FPM7VZ1::BRAF, TRIM24::BRAFEGFR EGFR vIII transcriptERBB2 WIPF2::WIIF9YXR APR74G7:ERG, TMPRSS2:ERGFGFR1 BAG4::FGFR1, ERLIN2::FGFR1, FGFR1::CSUI2ZCSA2 FGFR2::AFF3, FGFR2::BICC1, FGFR2::CASP7, FGFR2::CIT, FGFR2::YUTE1604_SWQH5, FGFR2::MGEA5, FGFR2::OFD1, FGFR2::TACC1, LET32U3::XHVH6UTNL5 FGFR3::AES, FGFR3::MLGVA6Y2, FGFR3::ELAVL3, FGFR3::RLDD7NSO MET Exon 14 Skipping, FBNZS8O6::MET, T9jzy37::MET, CAPZA2::MET, OXR1::MET, TFG::MET, TPR::MET, PTPRZ1::METNTRK1 BCAN::NTRK1, CD74::NTRK1, KHAI::NTRK1, HET8WO2::NTRK1, LMNA::NTRK1, MPRIP::NTRK1, NFASC::NTRK1, NTRK1::AGMF7I2, XPL581::NTRK1, SQSTM1::NTRK1, SSBP2::NTRK1, TFG::NTRK1, TPM3::NTRK1, TPR::EXNO4MBRY5 AFAP1::NTRK2, AGBL4::NTRK2,NACC2::NTRK2, QKI::NTRK2, SQSTM1::NTRK2, TRIM24::NTRK2, VCL::JORH3WTUE0 BTBD1::NTRK3, COX5A::NTRK3,ETV6::HHJD9ZKLIPZ SCAF11::PDGFRAPPARG PAX8::PPARGRAF1 C4JHEZ4::RAF1, ESRP1::JVK6MNXZ X94xar69::RELARET ACBD5::RET, AFAP1::RET, AKAP13::RET, CCDC6::RET, CUX1::RET, ERC1::RET, FKBP15::RET, GOLGA5::RET,HOOK3::RET, JZOQ7895::RET, KIF5B::RET, KTN1::RET, NCOA4::RET, PCM1::RET, DTQCQ6L::RET, RUFY2::RET, ILIHR5X::RET, VOR9VC3::RET, TRIM24::RET, TRIM27::RET, TRIM33::RETROS1 CCDC6:ROS1, CD74::ROS1, CEP85L::ROS1, CLIP1::ROS1, CLTC::ROS1, ERC1::ROS1, EZR::ROS1, GOPC::ROS1, HLA_A::ROS1, KDELR2::ROS1, OACD3654::ROS1, LRIG3::ROS1, MSN::ROS1, MYO5A::ROS1, PPFIBP1::ROS1, PWWP2A::ROS1, SDC4::ROS1, YEM23U6::ROS1, TFG::ROS1, TPM3::ROS1, ZCCHC8::FBX2ISPPIG9 TMPRSS2::ERG, TMPRSS2::ETV1, TMPRSS2::ETV4, TMPRSS2::E VD0LSGHCYIKCT:1) Katie LOPEZ, et al. Standards and Guidelines for the Interpretation andReporting of Sequence Variants in Cancer: A Joint ConsensusRecommendation of the Association for Molecular Pathology,[facility] Centerety of Clinical Oncology, and College of Prydeinig Pathologists. JMol Diagn. 2017 Jul;19(1):4-23. doi: 10.1016/j.jmoldx.2016.10.002.PMID: 61681987; PMCID: SNM1788477.2) Jerrell C, Jes SA, Cleopatra AM. Recurrent gene fusions inprostate cancer. Kaela Rev Cancer. 2008 Jan;8(7):497-511. doi:10.1038/clr4726. Epub 2007Jan 05. PMID: 83893434; PMCID: OFV8998386.3) Dayanna SC, Tyler LA. The genomic landscape of prostate cancer.Front Endocrinol ([facility]). 2011December 02;3:69. doi:10.3389 /fendo.2012.77376. PMID: 16436297; UFH3070015.4) Amol C, et al. Breast Cancer Genomics: Primary and Most CommonMetastases. Cancers ([place]). 2021Jan 07;14(13):3046. doi:10.3390/jmpbbrz07979737. PMID: 77428559; PMCID: XRH4456389.5) Alisson R, Inocencia DAVISJ, CJ. Counseling Case Manager Oncogenes but Not as We Know Them: Targetable Fusion Genes in Breast Cancer. Cancer Discov. 2018Sep;8(3):272- 275. doi: 10.1158/9926-4053.CD-18-0091. PMID: 47738084;PMCID: DAX8764834.6) Damien A, Vik J, Po JW, Breezy N, Teddy T, Anastacio CS. The GenomicLandscape of Thyroid Cancer Tumourigenesis and Implications forImmunotherapy. Cells. 2020November 17;10(5):1082. doi:10.3390/nskaz99183875. PMID: 37743687; PMCID: QDB4039200.7) Kathy et al. Molecular Biomarkers for the Evaluation ofColorectal Cancer: Guideline From the AmericanSociety for ClinicalPathology, College of Prydeinig Pathologists, Association for MolecularPathology, and the Prydeinig Society of Clinical Oncology. J ClinOncol. 2017 November 17;35(13):5917-0608. doi: 10.12 00/JCO.2016.71.9807.Epub 2016Aug 25. PMID: 38521494.8) Immanuel WILLARD et al. Updated Molecular Testing Guideline for theSelection of Lung Cancer Patients for Treatment With Targeted TyrosineKinase Inhibitors: Guideline From the College of AmericanPathologists, the International Association for the Study of LungCancer, and the Association for Molecular Pathology. Arch Pathol LabMed. 2018 Sep;142(3):321-346. doi: 10.5858/arpa.0574-0887-GW. Xgwv5729 Aug 10. PMID: 03627853.9) Cancer Genome [place] Research Network. Comprehensive genomiccharacterization defines human glioblastoma genes and core pathwa ys.Nature. 2007May 11;455(3874):1061-8. doi: 10.1038/zxihrk97473. Ywlv5533 Mar 23. Erratum in: Nature. 2012Sep 16;494(5239):506. PMID:48126376; PMCID: YPW5832485.10) Teresita LIND, Gloria M. Glioblastoma Genomics: A Very ComplicatedStory. In: De Vleeschouwer S, website/blog editor. Glioblastoma [Internet].[place] ([place]): [employer]; 2016Apr 15. Chapter 1. PMID:98530213.11) Merced S, Klemadyov N, Anderson H. Melanoma genomics: a gsbbc-lv-ffr-artreview of practical clinical applications. Br J Dermatol. ;185(2):272-281. doi: 10.1111/bjd.69127. Epub 2020Dec 23. PMID:25965989.12) Markell L, Joann. An update on molecular genetics ofgastrointestinal stromal tumours. J Clin Pathol. ;59(6):557-63. doi: 10.1136/jcp.2005.072950. PMID: 98050464; PMCID:EQW1819281.13) Kory ER, Feli M, Juliann BARRONB, Velia TL, Carolina LL. Molecularprofiling for precision cancer therapies. Genome Med. 2019;12(1):8. doi: 10.1186/q02965-492-6339-0. PMID: 55516805; PMCID:BAN9070797.14) Bart Reis etal. Somatic Genomic Testing in Patients WithMetastatic or Advanced Cancer: ASCO Provisional Clinical Opinion. JClin Oncol. 2021Oct 27;40(11):9346-8373. doi: 10.1200/JCO.21.40943.Epub 2021Sep 05. Erratum in: J Clin Oncol. 2021Jan 06;40(18):2068.PMID: 33137409.15) Bart Lind al. OncoKB: OncoKB: A Precision OncologyKnowledge Base. JCO Precis Oncol. 2017 Jan;2017:PO.17.76072. doi:10.1200/PO.17.86711. Epub 2016December 02. PMID: 52259655; PMCID:CZY5360990.DISCLAIMER:This test was developed and its performance characteristics determinedby [facility]'s Pathology and Laboratory Medicine Department. Ithas not been cleared or approved by the FDA. [facility]alsPath[facility] Laboratory Medicine [facility] is regulated under CLIAas certified to perform high-complexity testing. This test is used forclinical purposes. It should not be regarded as investigational or forresearch.Testing and interpretation performed at [facility], [address] [place] [address]. CLIA Number: [id number] reviewed by CLAUDIA Swansonerformed By: #### TOPTO ####CLARITY ILLUMINA LIMSCLIA [id number] [place] [address] [place] AMERICAUS thyroidon 99-45-5325PE [facility] [place] [address] Ultrasound Report Signed Patient: Ofe Saravia MR#: [id number] 88 : 1955 Acct:[id number] Age/Sex: 68 / F ADM Date: 08/09/24 Loc: Room: Type: [facility] CLI Attending Dr: Darian Barclay PA-C Ordering Provider: Darian Barcaly PA-C Date of Service: 08/09/24 US/US thyroid: [...] Sanjiv Reis M.D.08/09/2024 8:14 PM Dictation Location: [place] [address] Tech: Macy Perez Transcribed By: COLETTE 08/09/242013 Dictated By: Sanjiv Reis II, MD 08/09/242004 Signed By: 08/09/242013NoNovant Health Physician GroupBlood Urea Nitrogenon 08-08-2024 Urea nitrogen [Mass/Vol]23 mg/dLNormalBingham Memorial Hospital Physician GroupComment on above:Order Comment: Comment add Comment addPerformed By: #### VIN, FE and TIBC, [id number], LDH #### [facility] [address] [place] [address] USACT abdomen pelvis w conon 17-35-6113PG abdomen pelvis w [facility] [place] [address] [place] [address] CT Scan Report Signed Patient: Ofe Saravia MR#: [id number] [birth year] : 1955 Acct:[id number] Age/Sex: 68 / F ADM Date: 08/08/24 Loc: [place] Room: [facility] Attending Dr: Darian Barclay PA-C Copies to: Darian Barclay PA-C Ordering Provider: Darian Barclay PA-C Date of Service: 08/08/24 CT/CT abdomen pelvis w con: M89.9 ([id number]) CT/CT chest w con: M89.9 CT CHEST, [...] Panda Jr., D.O.08/08/2024 10:23 AM Dictation Location: [place] [address] Transcribed By: [facility] 08/08/24 1023 Dictated By: Miguel Panda Jr, DO 08/08/24 1014 Signed By: 08/08/24 1023NoNovant Health Physician GroupCreatinineon 08-08-2024 Creatinine [Mass/Vol]0.71 mg/dLNormal0.60-1.20The [facility] Physician Group Comment on above:Order Comment: Comment add Comment addPerformed By: #### VIN, FE and TIBC, [id number], LDH #### [facility] [address] [place] [address] USAGFR/1.73 sq M.predicted MDRD (S/P/Bld) [Vol rate/Area] mL/min/{1.73_m2}NormalThe [facility] Physician [facility] WesleyComment on above:Order Comment: Comment add Comment addResult Comment: PERFORMED BY: [place] [address] PATHOLOGIST RESERVATIONS SALES AGENT PETER COFFEY M.D.Performed By: #### VIN, FE and TIBC, [id number], LDH #### [facility] [address] [place] [address] USACreatinine [Mass/volume] in Serum or PlasmaOrdered By: Darian Barclay on 94-16-2223Godynobfuy [Mass/Vol]Creatinine [Mass/volume] in Serum or Plasma0.60-1.20Mag[facility]uder Memorial HospitalNM bone scan whole body on 75-46-2224QK bone scan whole bodyMARION HOSPITAL Main [place] [address] [place] [address] Nuclear Medicine Report Signed Patient: Ofe Saravia MR#: [id number] [birth year] : 1955 Acct:[id number] Age/Sex: 68 / F ADM Date: 08/08/24 Loc: [place] Room: Type: [facility] Attending Dr: Darian Barclay PA-C Copies to: Miguel Panda Jr, DO Darian Barclay PA-C Ordering Provider: Darian Barclay PA-C Date of Service: 08/08/24 [facility] bone scan whole body: E04.1 WHOLE-BODY BONE [...] the left suggesting a degree of obstruction. [facility] bone scan whole body IMPRESSION: ABNORMAL RADIOTRACER [...] Panda Jr., D.O.08/08/2024 12:39 PM Dictation Location: [place] [address] Transcribed By: COLETTE 08/08/24 1239 Dictated By: Miguel Panda Jr, DO 08/08/24 1235 Signed By: 08/08/24 1239[facility] Physician [facility] WesleyNo Panel InformationOrdered By: Darian Barclay on 09-55-9678Awdsjvljm GFR (CKD-EPI)> 60.0 mL/MinMagruder Memorial HospitalPharmacy Creatinine Clearance (ChemN/[facility] Tiffin HospitalUrea nitrogen [Mass/volume] in Serum or PlasmaOrdered By: Darian Barclay on 13-27-6480Yagq nitrogen [Mass/Vol]Urea nitrogen [Mass/volume] in Serum or Plasma7-25[facility] Memorial HospitalNURSING PROGon 18-81-4896PILZDJT PROGNormalOhiohealth Grant Medical Center25([place])D3 SerPl-mCncon - hydroxyvitamin D3 [Mass/Vol]67.6 ng/rGHawsyk92.0-80.0[facility] Comment on above:Order Comment: Specimen Type: BLOOD SPECIMENOrdering Facility: [facility] Address:[address] [place], [place] [address]Result Comment: Classification of 25 [place] Vitamin D status:Deficiency/Insufficiency: < or = 30 ng/ml.Sufficiency/Optimal Levels: 31-80 ng/mLToxicity: > 100 ng/mL.Test performed by chemiluminescent immunoassay.Performed By: #### 1989-3 ####[facility] LABCLIA [id number] [address] OF HKQFJVN42-aktconodsusegm D3 [Mass/Vol]on 63-52-1644Pjmzwcfbypnanf and review of laboratory resultsNormalCAvita Health System [facility] The reference range interval was based on an analysis of samples from healthy adults and may not pertain to children from 0-18 years old. [facility] HospitalACTIVATED PARTIAL THROMBOPLASTIN TIMEon 25-77-6731hADG Coag (PPP) [Time]29.5 sCleveland ClinicALK PHOS BONE SPECon 37-77-9782AZP PHOSPHATASE, BONE10.0 ug/LNormalOhiohealth Grant Medical CenterComment on above:Order Comment: Specimen Type: BLOOD SPECIMENOrdering Facility: [facility] Address:[address] [place], [place] [address]Result Comment: INTERPRETIVE INFORMATION: Bone Specific Alkaline Phosphatase Premenopausal Female: 4.5 - 16.9 ug/L Postmenopausal Female: 7.0 - 22.4 ug/LINTERPRETIVE INFORMATION: Bone Specific Alkaline PhosphataseLiver alkaline phosphatase can affect the measurement of bonespecific alkaline phosphatase in this assay. Each 100 U/L of liveralkaline phosphatase contributes an additional 2.5 to 5.8 ug/L tothe bone specific alkaline phosphatase result.Performed By: [employer] [place] [address]Pweotwzysb Director: Vincenzo Hicks MD, PhDCLIA Number: [id number] By: #### APDOROTHY ####[facility] MEDICAL CENTERIA [id number] [place], [place] [address]E- REACTIVE PROTEINon 39-66-4933AOF [Mass/Vol]15.7 mg/dLHighNINF - 0.9 mg/dL [facility] W Auto Differential panel (Bld)on 89-48-9015Hpcofxrce (Bld) [#/Vol]0.05 10*3/uLNINFGood Samaritan HospitalBasophils/100 WBC (Bld)0.5 %[facility] HospitalDifferential cell count method Nom (Bld)AutoCleveland ClinicEosinophils (Bld) [#/Vol]0.14 10*3/uLNINFGood Samaritan HospitalEosinophils/100 WBC (Bld)1.4 % [facility] HospitalErythrocyte distribution width (RBC) [Ratio]12.0 %11.5 - 15.0 % [facility] HospitalHematocrit (Bld) [Volume fraction]38.0 %36.0 - 46.0 %[facility]itan HospitalHemoglobin (Bld) [Mass/Vol]12.3 g/dL11.5 - 15.5 g/dLGood Samaritan Hospital Immature granulocytes (Bld) [#/Vol]0.03 10*3/uLNINFGood Samaritan HospitalImmature granulocytes/100 WBC (Bld)0.3 %[facility] HospitalInterpretation and review of laboratory resultsAbnormalCleveland ClinicLymphocytes (Bld) [#/Vol]1.65 10*3/uL [facility] HospitalLymphocytes/100 WBC (Bld)16.1 %Fort Hamilton HospitalH (RBC) [Entitic mass]30.3 pg26.0 - 34.0 pgCleveland Melrose Area HospitalHC (RBC) [Mass/Vol]32.4 g/dL30.5 - 36.0 g/dLGood Samaritan HospitalMCV (RBC) [Entitic vol]93.6 fL80.0 - 100.0 fLClevelatrium health cabarrus ClinicMonocytes (Bld) [#/Vol]0.85 10*3/uLNINFGood Samaritan Hospital Monocytes/100 WBC (Bld)8.3 %[facility] HospitalNeutrophils (Bld) [#/Vol]7.50 10*3/uLGood Samaritan HospitalNeutrophils/100 WBC (Bld)73.4 %[facility] HospitalNucleated RBC (Bld) [#/Vol]NINFClevelDiley Ridge Medical CenterNucleated RBC/100 WBC (Bld) [Ratio]0.0 % /100 WBCGood Samaritan HospitalPlatelet mean volume (Bld) [Entitic vol]9.4 fL9.0 - 12.7 fLCknox community hospital ClinicPlatelets (Bld) [#/Vol]433 10*3/uLHighGood Samaritan HospitalRBC (Bld) [#/Vol]4.06 10*6/uL3.90 - 5.20 m/uLGood Samaritan HospitalWBC (Bld) [#/Vol]10.22 10*3/uLAkron Children's Hospital ClinicBasophils (Bld) [#/Vol]0.05 10*3/uLNormal <0.11CSCCI Hospital [facility] on above:Order Comment: Specimen Type: BLOOD SPECIMENOrdering Facility: [facility] Address:[address] [place], [place] [address]Performed By: #### 38485-8, 7 ####[facility] LABCLIA [id number] [place] [address] [place] AMERICABasophils/100 WBC (Bld)0.5 %NormalAvita Health System on above:Order Comment: Specimen Type: BLOOD SPECIMENOrdering Facility: [facility] Address:[address] [place], [place] [address]Performed By: #### 30683-3, 4537-7 ####[facility] LABCLIA [id number] [place] [address] [place] AMERICADifferential cell count method Nom (Bld)AutoNormalCSCCI Hospital Lima on above:Order Comment: Specimen Type: BLOOD SPECIMENOrdering Facility: [facility] Address:[address] [place], [place] [address]Performed By: #### 21999-6, 7 ####[facility] LABCLIA [id number] [place] [address] [place] AMERICAEosinophils (Bld) [#/Vol]0.14 10*3/uLNormal<0.46[facility] on above:Order Comment: Specimen Type: BLOOD SPECIMENOrdering Facility: [facility] Address:[address] [place], [place] [address]Performed By: #### 89812-4, 7 ####[facility] LABCLIA [id number] [place] [address] [place] OF AMERICAEosinophils/100 WBC (Bld)1.4 %NormalAvita Health System on above:Order Comment: Specimen Type: BLOOD SPECIMENOrdering Facility: [facility] Address:[address] [place], [place] [address]Performed By: #### 15015-7, 7 ####[facility] LABCLIA [id number] [place] [address] [place] AMERICAErythrocyte distribution width (RBC) [Ratio]12.0 %Ecvhgv82.5-15.0[facility] Comment on above:Order Comment: Specimen Type: BLOOD SPECIMENOrdering Facility: [facility] Address:[address] [place] [address] Performed By: #### 99826-6, 4537-01 ####[facility] LABCLIA [id number] [place] [address] [place] Hematocrit (Bld) [Volume fraction]38.0 %Bydsit47.0-46.0[facility] on above:Order Comment: Specimen Type: BLOOD SPECIMENOrdering Facility: [facility] Address:[address] [place], [place] [address]Performed By: #### 02469-4, 4536-7 ####[facility] LABCLIA [id number] [place] [address] [place] Hemoglobin (Bld) [Mass/Vol]12.3 g/zTPxkgbe60.5-15.5CS[facility] Comment on above:Order Comment: Specimen Type: BLOOD SPECIMENOrdering Facility: [facility] Address:[address] [place] [address] Performed By: #### 60520-2, 453-7 ####[facility] LABCLIA [id number] [place] [address] [place] Immature granulocytes (Bld) [#/Vol]0.03 10*3/uLNormal<0.10[facility] CenterComment on above:Order Comment: Specimen Type: BLOOD SPECIMENOrdering Facility: [facility] Address:[address] [place], [place] [address]Performed By: #### 28978-3, 4536-7 ####[facility] LABCLIA [id number] [place] [address] [place] AMERICAImmature granulocytes/100 WBC (Bld)0.3 %NormalOhiohealth Grant Medical Center Comment on above:Order Comment: Specimen Type: BLOOD SPECIMENOrdering Facility: [facility] Address:[address] [place] [address] Performed By: #### 58294-3, 4536-7 ####[facility] LABCLIA [id number] [place] [address] [place] Lymphocytes (Bld) [#/Vol]1.65 10*3/uLNormal1.00-4.00[facility] Comment on above:Order Comment: Specimen Type: BLOOD SPECIMENOrdering Facility: [facility] Address:[address] [place] [address] Performed By: #### 55411-1, 4536-7 ####[facility] LABCLIA [id number] [address] Lymphocytes/100 WBC (Bld)16.1 %NormalAvita Health System on above: Order Comment: Specimen Type: BLOOD SPECIMENOrdering Facility: [facility] Address:[address] [place], [place] [address]Performed By: #### 75780- 8, 7 ####[facility] LABCLIA [id number] [facility] [address] (RBC) [Entitic mass] 30.3 jqIcxmna59.0-34.0[facility] on above:Order Comment: Specimen Type: BLOOD SPECIMENOrdering Facility: [facility] Address:[address] [place], [place] [address]Performed By: #### 61290-7, 7 ####[facility] LABIA [id number] [address]HC (RBC) [Mass/Vol]32.4 g/dL Xoavvo01.5-36.0[facility] on above:Order Comment: Specimen Type: BLOOD SPECIMENOrdering Facility: [facility] Address:[address] [place], [place] [address]Performed By: #### 82196-5, 7 ####[facility] LABIA [id number] [address] (RBC) [Entitic vol]93.6 fL Fmrrhy39.0-100.0[facility] on above:Order Comment: Specimen Type: BLOOD SPECIMENOrdering Facility: [facility] Address:[address] [place], [place] [address]Performed By: #### 53279-3, 7 ####[facility] LABCLIA [id number] [place] [address] [place] AMERICAMonocytes (Bld) [#/Vol]0.85 10*3/uLNormal<0.87[facility] on above:Order Comment: Specimen Type: BLOOD SPECIMENOrdering Facility: [facility] Address:[address] [place], [place] [address]Performed By: #### 95129-2, 4536-7 ####[facility] LABCLIA [id number] [place] [address] [place] AMERICAMonocytes/100 WBC (Bld)8.3 % NormalOhiohealth Grant Medical CenterComment on above:Order Comment: Specimen Type: BLOOD SPECIMENOrdering Facility: [facility] Address:[address] [place], [place] [address]Performed By: #### 17632-0, 4536-7 ####[facility] LABCLIA [id number] [place] [address] [place] AMERICANeutrophils (Bld) [#/Vol]7.50 10*3/uLNormal1.45-7.50 [facility] on above:Order Comment: Specimen Type: BLOOD SPECIMENOrdering Facility: [facility] Address:[address] [place], [place] [address]Performed By: #### 15135-0, 7 ####[facility] LABCLIA [id number] [place] [address] [place] AMERICANeutrophils/100 WBC (Bld)73.4 %NormalOhiohealth Grant Medical Center Comment on above:Order Comment: Specimen Type: BLOOD SPECIMENOrdering Facility: [facility] Address:[address] [place] [address] Performed By: #### 33279-8, 4536-7 ####[facility] LABCLIA [id number] [place] [address] [place] Nucleated RBC (Bld) [#/Vol]10*3/uLNormal<0.01[facility] on above:Order Comment: Specimen Type: BLOOD SPECIMENOrdering Facility: [facility] Address:[address] [place] [address] Performed By: #### 30431-2, 4537-7 ####[facility] LABCLIA [id number] [place] [address] [place] Nucleated RBC/100 WBC (Bld) [Ratio]0.0 /100 WBCNormalCSuburban Community Hospital & [facility] Comment on above:Order Comment: Specimen Type: BLOOD SPECIMENOrdering Facility: [facility] Address:[address] [place] [address] Performed By: #### 52121-9, 4537-7 ####[facility] LABCLIA [id number] [place] [address] [place] Platelet mean volume (Bld) [Entitic vol]9.4 fLNormal9.0-12.7CS[facility] on above:Order Comment: Specimen Type: BLOOD SPECIMENOrdering Facility: [facility] Address:[address] [place], [place] [address]Performed By: #### 43251-2, 4537-7 ####[facility] LABCLIA [id number] [place] [address] [place] Platelets (Bld) [#/Vol]433 10*3/eIGtkh223-078ScjjeccilAvita Health System on above:Order Comment: Specimen Type: BLOOD SPECIMENOrdering Facility: [facility] Address:[address] [place] [address] Performed By: #### 53305-3, 7-7 ####[facility] LABCLIA [id number] [place] [address] [place] RBC (Bld) [#/Vol]4.06 10*6/uLNormal3.90-5.20[facility] ClevelandComment on above:Order Comment: Specimen Type: BLOOD SPECIMENOrdering Facility: [facility] Address:[address] [place], [place] [address]Performed By: #### 87415-3, 4537-7 ####[facility] LABCLIA [id number] [place] [address] [place] AMERICAWBC (Bld) [#/Vol]10.22 10*3/uLNormal3.70-11.00[facility] Medical CenterComment on above:Order Comment: Specimen Type: BLOOD SPECIMENOrdering Facility: [facility] Address:[address] [place], [place] [address]Performed By: #### 08785- 8, 4537-7 ####[facility] LABCLIA [id number] [address] STATES OF AMERICACNOVon 44-24-8628RHOV NormalOhiohealth Grant Medical CenterCNPNon 12-07-5323PSGBAjjzucNlgmnykql Clinic ClevelandCRP SerPl-mCncon 63-14-5580ITY [Mass/Vol]15.7 mg/dLHigh<0.9ClevelSampson Regional Medical CenterComment on above:Order Comment: Specimen Type: BLOOD SPECIMENOrdering Facility: [facility] Address:[address] [place], [place] [address]Performed By: #### 1988-5, 3024-7, 3016-3, 83133-2 ####[facility] LABCLIA [id number] [place] [address] [place] AMERICAComprehensive metabolic 2000 panelon 51-08-6241Mhzcftc [Mass/Vol]4.0 g/dL3.9 - 4.9 g/dLNew York ClinicALP [Catalytic activity/Vol]96 U/L34 - 123 U/LCleveland ClinicALT [Catalytic activity/Vol]17 U/L7 - 38 U/LCleveland ClinicAnion gap [Moles/Vol]14 mmol/L8 - 15 mmol/LCleveland ClinicAST [Catalytic activity/Vol]16 U/L13 - 35 U/LCleveland ClinicBilirubin [Mass/Vol]0.3 mg/dL0.2 - 1.3 mg/dLNew York ClinicCalcium [Mass/Vol]9.8 mg/dL8.5 - 10.2 mg/dLNew York ClinicChloride [Moles/Vol]100 mmol/L98 - 107 mmol/LCleveland ClinicCO2 [Moles/Vol]27 mmol/L22 - 30 mmol/L [facility] HospitalCreatinine [Mass/Vol]0.68 mg/dL0.58 - 0.96 mg/dLGood Samaritan Hospital GFR/1.73 sq M.predicted among non-blacks MDRD (S/P/Bld) [Vol rate/Area]96 mL/min/{1.73_m2}- PINFCleveland All[facility] Faribault Medical CenterComment on above:Estimated Glomerular Filtration Rate (eGFR) is calculated using the 2020 CKD-EPI creatinine equation. This equation utilizes serum creatinine, sex, and age as parameters. The creatinine assay has traceable calibration to isotope dilution-mass spectrometry. Refer to KDIGO guidelines for clinical interpretation. In patients with unstable renal function, e.g. those with acute kidney injury, the eGFRmay not accurately reflect actual GFR.Glucose [Mass/Vol]120 mg/mCCrig73 - 99 mg/dL [facility]aritan HospitalComment on above:The Prydeinig Diabetes Association (ADA) provides guidance for cutoff [...] Standards of Medical Care in Diabetes 2016, Prydein[place] Diabetes Association. Diabetes Care. 2016.39(Suppl 1). Potassium [Moles/Vol]4.0 mmol/L3.7 - 5.1 mmol/LCleveland ClinicProtein [Mass/Vol]7.9 g/dL6.3 - 8.0 g/dLNew York ClinicSodium [Moles/Vol]141 mmol/L136 - 144 mmol/LCleveland ClinicUrea nitrogen [Mass/Vol]19 mg/dL7 - 21 mg/dL [place] ClinicAlbumin [Mass/Vol]4.0 g/dLNormal3.9-4.9[facility] on above:Order Comment: Specimen Type: BLOOD SPECIMENOrdering Facility: [facility] Address:[address] [place], [place] [address]Performed By: #### 1987-11, 3024-01, 3015-09, 15047-2 ####[facility] LABCLIA [id number] [place] [address] [place] AMERICAALP [Catalytic activity/Vol]96 U/GUyajgp22-049SdstyfovvAvita Health System on above:Order Comment: Specimen Type: BLOOD SPECIMENOrdering Facility: [facility] Address:[address] [place], [place] [address]Performed By: #### 1987-11, 3024-01, 3015-09, ####[facility] LABCLIA [id number] [place] [address] [place] AMERICAALT [Catalytic activity/Vol]17 U/LNormal7-38[facility] on above:Order Comment: Specimen Type: BLOOD SPECIMENOrdering Facility: [facility] Address:[address] [place], [place] [address]Performed By: #### 1987-11, 3024-01, 3015-09, ####[facility] LABCLIA [id number] [place] [id number] [place] AMERICAAnion gap [Moles/Vol]14 mmol/L Normal8-15[facility] on above:Order Comment: Specimen Type: BLOOD SPECIMENOrdering Facility: [facility] Address:[address] [place], [place] [address]Performed By: #### 1987-11, 3024-01, 3015-09, ####[facility] LABCLIA [id number] [place] [address] [place] AMERICAAST [Catalytic activity/Vol]16 U/ZPbchrm68-10RjvxlbflwAvita Health System on above:Order Comment: Specimen Type: BLOOD SPECIMENOrdering Facility: [facility] Address:[address] [place], [place] [address]Performed By: #### 1987-11, 3024-01, 3, 38415- 8 ####[facility] LABIA [id number] [place] [address] [place] AMERICABilirubin [Mass/Vol]0.3 mg/dL Normal0.2-1.3[facility] on above:Order Comment: Specimen Type: BLOOD SPECIMENOrdering Facility: [facility] Address:[address] [place], [place] [address]Performed By: #### 1987-11, 3024-01, 3015-09, ####[facility] LABIA [id number] [address] STATES OF AMERICACalcium [Mass/Vol]9.8 mg/dLNormal 8.5-10.2[facility] on above:Order Comment: Specimen Type: BLOOD SPECIMENOrdering Facility: [facility] Address:[address] [place], [place] [address]Performed By: #### 1987-11, 3024-01, 3015-09, ####[facility] LABIA [id number] [place] [address] [place] AMERICAChloride [Moles/Vol]100 mmol/L Pstmfs67-669IbbspqizeAvita Health System on above:Order Comment: Specimen Type: BLOOD SPECIMENOrdering Facility: [facility] Address:[address] [place], [place] [address]Performed By: #### 1987-11, 3024-01, 3015-09, ####[facility] LABIA [id number] [place] [address] [place] AMERICACO2 [Moles/Vol]27 mmol/LNormal 22-30[facility] on above:Order Comment: Specimen Type: BLOOD SPECIMENOrdering Facility: [facility] Address:[address] [place], [place] [address]Performed By: #### 1987-11, 3024-01, 3015-09, ####[facility] LABCLIA [id number] [place] [address] [place] AMERICACreatinine [Mass/Vol]0.68 mg/dL Normal0.58-0.96[facility] on above:Order Comment: Specimen Type: BLOOD SPECIMENOrdering Facility: [facility] Address:[address] [place], [place] [address]Performed By: #### 1987-11, 3024-01, 3015-09, ####[facility] LABIA [id number] [address] STATES OF [facility]TH CAMPUSCreatinine and Glomerular filtration rate.predicted panel (S/P/Bld)96 mL/min/1.73m???Normal>=60 [facility] on above:Order Comment: Specimen Type: BLOOD SPECIMENOrdering Facility: [facility] Address:[address] [place], [place] [address]Result Comment: Estimated Glomerular Filtration Rate (eGFR) is [...] actual GFR.Performed By: #### 1987-11, 3024-01, 3015-09, ####[facility] LABCLIA [id number] [place] [id number] [place] AMERICAGlucose [Mass/Vol]120 mg/dLHigh 74-99[facility] on above:Order Comment: Specimen Type: BLOOD SPECIMENOrdering Facility: [facility] Address:[address] [place], [place] [id number] Comment: The Pryde[place] Diabetes Association (ADA) provides guidance for cutoff [...] Standards of Medical Care in Diabetes 2016, Prydeinig Diabetes Association. Diabetes Care. 2016.39(Suppl 1).Performed By: #### 1987-11, 3024-01, 3015-09, ####[facility] LABCLIA [id number] [place] [address] [place] AMERICAPotassium [Moles/Vol]4.0 mmol/LNormal3.7-5.1[facility] on above: Order Comment: Specimen Type: BLOOD SPECIMENOrdering Facility: [facility] Address:[address] [place], [place] [address]Performed By: #### , 3024-01, 3015-09, ####[facility] LABCLIA [id number] [place] [id number] [place] AMERICAProtein [Mass/Vol]7.9 g/dLNormal6.3-8.0[facility] on above:Order Comment: Specimen Type: BLOOD SPECIMENOrdering Facility: [facility] Address:[address] [place], [place] [address]Performed By: #### , 3024-01, 3015-09, 30162-1 ####[facility] LABCLIA [id number] [place] [id number] [place] AMERICASodium [Moles/Vol]141 mmol/LDgbbem376-041LfikckkymAvita Health System on above: Order Comment: Specimen Type: BLOOD SPECIMENOrdering Facility: [facility] Address:[address] [place], [place] [id number] By: #### 1987- 5, 3024-01, 3016-3, 33036-9 ####[facility] LABCLIA [id number] [place] [id number] [place] AMERICAUrea nitrogen [Mass/Vol]19 mg/dLNormal7-21[facility] on above: Order Comment: Specimen Type: BLOOD SPECIMENOrdering Facility: [facility] Address:[address] [place], [place] [address]Performed By: #### , 3024-01, 3015-09, 79132-2 ####[facility] LABCLIA [id number] [place], [place] [id number] [place] OF AMERICAESR Westergren method (Bld) [Velocity]on 18-79-1923XUE (Bld) [Velocity]91 mm/hHigh [facility]aritan HospitalInterpretation and review of laboratory resultsAbnormalCselect medical specialty hospital - youngstownand Parkwood HospitalR (Bld) [Velocity]91 mm/hHigh0-20[facility] on above:Order Comment: Specimen Type: BLOOD SPECIMENOrdering Facility: [facility] Address:[address] [place], [place] [address]Performed By: #### 50718-4, 4537-7 ####[facility] LABCLIA [id number] [place] [id number] [place] OF AMERICANo Panel Informationon 82-80-9128Ypwgswrcictmby and review of laboratory resultsNormalCleveland Riverside Methodist HospitalInterpretation and review of laboratory resultsAbnormalCleveland Riverside Methodist HospitalInterpretation and review of laboratory resultsNormalCleveland Riverside Methodist HospitalPROTEIN ELECTROPHORESIS SERUM (P)on 94-46-5044Hxxwxyn [Mass/Vol]3.48 g/dLNormal3.43-5.41 [facility] Medical CenterComment on above:Order Comment: Specimen Type: BLOOD SPECIMENOrdering Facility: [facility] Address:[address] [place], [place] [address]Performed By: #### [id number] ####[facility] LABCLIA [id number] [place] [address] [place] AMERICAAlpha 1 globulin Elph [Mass/Vol]0.53 g/dLHigh0.18-0.43[facility] Medical CenterComment on above:Order Comment: Specimen Type: BLOOD SPECIMENOrdering Facility: [facility] Address:[address] [place], [place] [address]Performed By: #### [id number] ####[facility] LABCLIA [id number] [place] [address] [place] Alpha 2 globulin Elph [Mass/Vol]1.38 g/dLHigh0.42-0.98[facility] Comment on above:Order Comment: Specimen Type: BLOOD SPECIMENOrdering Facility: [facility] Address:[address] [place] [address] Performed By: #### [id number] ####[facility] LABIA [id number] [place] [address] [place] Beta globulin Elph [Mass/Vol]1.01 g/dLNormal0.61-1.17[facility] Comment on above:Order Comment: Specimen Type: BLOOD SPECIMENOrdering Facility: [facility] Address:[address] [place] [address] Performed By: #### [id number] ####[facility] LABCLIA [id number] [place] [address] [place] Gamma globulin Elph [Mass/Vol]0.80 g/dLNormal0.53-1.51[facility] Comment on above:Order Comment: Specimen Type: BLOOD SPECIMENOrdering Facility: [facility] Address:[address] [place] [address] Performed By: #### [id number] ####[facility] LABIA [id number] [place] [address] [place] M-PROTEIN LOCATIONNoLouis Stokes [facility] on above:Order Comment: Specimen Type: BLOOD SPECIMENOrdering Facility: [facility] Address:[address] [place], [place] [address]Result Comment: Not Applicable.Performed By: #### [id number] ####[facility] LABIA [id number] [place] [address] [place] Protein Fractions [Interp]No definitive M protein is identified on protein electrophoresis.NormalNo definitive M protein is identified on protein electrophoresis.[facility] on above:Order Comment: Specimen Type: BLOOD SPECIMENOrdering Facility: [facility] Address:[address] [place], [place] [address]Performed By: #### [id number] ####[facility] LABIA [id number] [place] [address] [place] AMERICAProtein.monoclonal Elph [Mass/Vol]0.00 g/dLNormal<=0.00[facility] on above:Order Comment: Specimen Type: BLOOD SPECIMENOrdering Facility: [facility] Address:[address] [place], [place] [address]Performed By: #### [id number] ####[facility] LABIA [id number] [place] [address] [place] [facility] HOSPITALSPE STAFF REVIEW Reviewed by Dr. Cam Navas [facility] on above:Order Comment: Specimen Type: BLOOD SPECIMENOrdering Facility: [facility] Address:[address] [place], [place] [address]Performed By: #### [id number] ####[facility] LABIA [id number] [place] [address] [place] AMERICAPT panel Coag (PPP)on 88-79-6107NLG Coag (PPP) [Relative time]1.1 {INR}0.9 - 1.3CA[facility] Comment on above:Vitamin K Antagonist (VKA) Therapeutic Range: INR 2 to 3 (Target INR of 2.5) Note: For patients treated with VKA drugs, such as warfarin, the Pryde[employer] 2012 Guideline recommends [...] Chest 2012, 141:7S-47S Dain RA, et al. [facility] 2017, 70: 252-289 PT Coag (PPP) [Time]12.1 [facility] HospitalINR Coag (PPP) [Relative time]1.1 {INR}Normal0.9-1.3CSuburban Community Hospital & Brentwood HospitalComment on above:Order Comment: Specimen Type: BLOOD SPECIMENOrdering Facility: [facility] Address:[address] [place] [address]Wosycp Comment: Vitamin K Antagonist (VKA) Therapeutic Range: INR 2 to 3 (Target INR of 2.5)Note: For patients treated with VKA drugs, such as warfarin, the Pry[employer] 2012 Guideline recommends [...] al. Chest 2012, 141:7S-47SNishimura RA, et al. [facility] 2017, 70: 252-289Performed By: #### 99652-5, 46268-2 ####[facility] LABCLIA [id number] [place] [address] [place] AMERICAPT Coag (PPP) [Time] 12.1 sNormal9.7-13.0[facility] on above:Order Comment: Specimen Type: BLOOD SPECIMENOrdering Facility: [facility] Address:[address] [place], [place] [address]Performed By: #### 87836-9, 29908-4 ####[facility] LABIA [id number] [address] [place] AMER[place] INTACTon 07-29-2024 Parathyrin.intact [Mass/Vol]30 pg/mL15 - 65 pg/mLCleveland Allina Health Faribault Medical CenterPT-Intact SerPl-mCncon 42-41-2230Yutpdokmvu.intact [Mass/Vol]30 pg/uXPzihfl02-19IblthtdvnAvita Health System on above:Order Comment: Specimen Type: BLOOD SPECIMENOrdering Facility: [facility] Address:[address] [address] [place], [place] [address]Performed By: #### 2731-8, 2885-2 ####[facility] LABIA [id number] [place] [address] [place] OF AMERICAParathyrin.intact [Mass/Vol]on 95-44-8988Uxpelwvnwzhbup and review of laboratory resultsNormalCleveland Riverside Methodist HospitalProt SerPl-mCncon 94-21-6890Luxavce [Mass/Vol]7.2 g/dLNormal6.3-8.0[facility] on above:Order Comment: Specimen Type: BLOOD SPECIMENOrdering Facility: [facility] Address:[address] [place], [place] [address]Performed By: #### 2731-8, 2885-2 ####[facility] LABCLIA [id number] [place] [address] [place] Prot Ur-mCncon 48-66-8986Gghholh (U) [Mass/Vol]64 mg/dLHigh0-20[facility] on above:Order Comment: Specimen Type: URINE SPECIMENOrdering Facility: [facility] Address:[address] [place], [place] [address]Performed By: #### 2888-6 ####[facility] LABCLIA [id number] [place] [address] [place] T4 FREE/FREE THYROXINEon 38-68-6256Gogs T4 [Mass/Vol]1.1 ng/dL0.9 - 1.7 ng/dL [place] [address] Free SerPl-ncon 84-81-4170Yqgn T4 [Mass/Vol]1.1 ng/dLNormal 0.9-1.7[facility] on above:Order Comment: Specimen Type: BLOOD SPECIMENOrdering Facility: [facility] Address:[address] [place], [place] [address]Performed By: #### 1987-11, 3024-01, 3015-09, 20477-7 ####[facility] LABCLIA [id number] [place] [address] [place] AMERICATHYROID STIMULATING HORMONEon 43-73-1371DLM Qn2.050 m[IU]/LCCleveland Clinic [facility] SerPl-aCncon 99-51-9372YCT Qn 2.050 m[IU]/LNormal0.270-4.200[facility] on above:Order Comment: Specimen Type: BLOOD SPECIMENOrdering Facility: [facility] Address:[address] [place], [place] [address]Performed By: #### 1987- , 3024-01, 3015-09, 00593-0 ####[facility] LABCLIA [id number] [place] [address] [place] [facility] CAMPUSURINE PROTEIN ELECTROPHORESIS RANDOM (P)on 24-42-1078Akdnwxb Elph (U) [Mass fraction] 30.70 %NormalAvita Health System on above:Order Comment: Specimen Type: URINE SPECIMENOrdering Facility: [facility] Address:[address] [place], [place] [address]Performed By: #### [id number] ####[facility] LABIA [id number] [place] [address] [place] AMERICAAlpha 1 globulin Elph (U) [Mass fraction]2.31 %Normal [facility] on above:Order Comment: Specimen Type: URINE SPECIMENOrdering Facility: [facility] Address:[address] [place], [place] [address]Performed By: #### [id number] ####[facility] LABIA [id number] [place] [address] [place] AMERICAAlpha 2 globulin Elph (U) [Mass fraction]20.02 %NormalAvita Health System on above:Order Comment: Specimen Type: URINE SPECIMENOrdering Facility: [facility] Address:[address] [place], [place] [address]Performed By: #### [id number] ####[facility] LABIA [id number] [place] [address] [place] Beta globulin Elph (U) [Mass fraction]30.04 %NormalOhiohealth Grant Medical Center Comment on above:Order Comment: Specimen Type: URINE SPECIMENOrdering Facility: [facility] Address:[address] [place] [address] Performed By: #### [id number] ####[facility] LABIA [id number] [place] [address] [place] Gamma globulin Elph (U) [Mass fraction]16.93 %NormalOhiohealth Grant Medical Center Comment on above:Order Comment: Specimen Type: URINE SPECIMENOrdering Facility: [facility] Address:[address] [place] [address] Performed By: #### [id number] ####[facility] LABCLIA [id number] [place] [address] [place] INTERPRETATION COMMENT FOR PROTEIN ELECTROPHORESISNoLouis Stokes [facility] on above:Order Comment: Specimen Type: URINE SPECIMENOrdering Facility: [facility] Address:[address] [place], [place] [address]Performed By: #### [id number] ####[facility] LABIA [id number] [place] [address] [place] Protein Fractions Elph Jonathan (U) [Interp]An atypical region of restricted mobility is identified on protein electrophoresis.AbnormalNo definitive M protein is identified on protein electrophoresis.[facility] on above:Order Comment: Specimen Type: URINE SPECIMENOrdering Facility: [facility] Address:[address] [place], [place] [address]Performed By: #### [id number] ####[facility] LABIA [id number] [place] [address] [place] AMERICASTAFF REVIEW (URINE ELECTRO)Reviewed by Dr. Cam Navas MDNormPeoples Hospital on above:Order Comment: Specimen Type: URINE SPECIMENOrdering Facility: [facility] Address:[address] [place] [address] Performed By: #### [id number] ####[facility] LABIA [id number] [place] [address] [place] VITAMIN D 25 HYDROXYon 390784-xkaeeyxfxckaip D3 [Mass/Vol]67.6 ng/mL31.0 - 80.0 ng/mLCKindred Hospital Dayton on above:Classification of 25 [place] Vitamin D status: Deficiency/Insufficiency: < or = 30 ng/ml. Sufficiency/Optimal Levels: 31-80 ng/mL Toxicity: > 100 ng/mL. Test performed by chemiluminescent immunoassay. XR HIP 3V PELV+ AP/LAT RTon 28-69-1910VA HIP 3V PELV+ AP/LAT RTNormalCSuburban Community Hospital & Brentwood HospitalXR Pelvis and Hip - right AP and Lateral frogon 07-29-2024 Radiology Study observation (narrative)[facility]ar[facility] HospitalIMPRESSION: Mild osteoarthritis right hip Gusset Ripper: JEANETTE Transcribe Date/Time: Jul 29 2024 1:04P Dictated by : ALEXANDRIA GRIDER MD This examination was interpreted and the report reviewed and electronically signed by: ALEXANDRIA GRIDER MD on Jul 29 2024 1:04PM [facility] DIVISION OF RADIOLOGY* * *Final Report* [...] changes lower lumbar spine. DIVISION OF RADIOLOGYProvider, [facility] [place] - 07/29/2024 * * *Final Report* * [...] spine. IMPRESSION IMPRESSION: Mild osteoarthritis right hip Gusset Ripper: JEANETTE Transcribe Date/Time: Jul 29 2024 1:04P Dictated by : ALEXANDRIA GRIDER MD This examination was interpreted and the report reviewed and electronically signed by: ALEXANDRIA GRIDER MD on Jul 29 2024 1:04PM EST [facility]itan HospitalXR Pelvis and Hip - right AP and Lateral frogOrdered By: Ccf Provider on 66-55-8016Emaeuqnqp ClinicaPTT Coag (PPP) [Time]on 07-29-2024 Unfractionated Heparin [...] of laboratory APTT reagentin use throughout the [facility]. [facility]aritan HospitalaPTT PPPon 87-31-6004aXVZ Coag (PPP) [Time]29.5 qCxedim96.0-32.4 [facility] Medical CenterComstraith hospital for special surgery on above:Order Comment: Specimen Type: BLOOD SPECIMENOrdering Facility: [facility] Address:[address] [place], [place] [address]Performed By: #### 59028-7, 36860-0 ####[facility] LABCLIA [id number] [place] [address] [place] AMERICACNOVon 19-26-4666XBENRqjkadOiqunikoj Clinic ClevelandXR SHLDR 4V AP/LESTER/LAT/OUTLET RTon 10-84-2250TL SHLDR 4V AP/LESTER/LAT/OUTLET RTNormal [facility] CenterAmbulatory Visit Summaryon 63-86-1496Blrmttrjxm Visit SummaryAmbulatory Visit Summary OFE SARAVIA :1955 [...] Kera Reid MD Where: [facility] [address] [place] [address]- You Need to Schedule the Following Appointments [...] [facility]acy #[id number]: [address] [place], [place] [id number] [phone] Medications and Immunizations Administered Given lidocaine Top [...] ? 8 oz (237 mL) of milk, tkwgnwq-fajlzgenssyb-tzppw milk, and calcium- fortifiedfruit juice. Calcium-fortified means [...] fruit. ? Pre-made salad (more content not included)...[facility] Urology Office/Clinic Noteon 04-73-3856Xenkvwm Office/Clinic NoteUrology Office/Clinic Note Chief Complaint Cysto [...] medical management to preven (more content not included)...[facility] HospitalComment on above:Result Comment: Electronically Signed By: Kera Reid MD\.br\Date and Time Signed: 06/23/24 13:22EST\.br\Electronically Co-Signed By: Moira Vasquez\.br\Date and Time Co-Signed: 06/23/24 13:17 ESTAmmonium urate crystals detection in stone by infrared spectroscopyOrdered By: Kera Reid on 78-06-2761Nvzlvhul urate crystals Infrared spectroscopy Ql (Stone)Ammonium urate crystals detection in stone by infrared spectroscopyMagruder Memorial HospitalCalcium bilirubinate measurementOrdered By: Kera Reid on 38-61-3560Qdliotq bilirubinate (Stone) [Mass fraction]Calcium bilirubinate measurementMagruder Memorial Hospital Calcium carbonate/Total in StoneOrdered By: Kera Reid on 75-18-8531Oqskjvv carbonate (Stone) [Mass fraction]Calcium carbonate measurementMagruder Memorial HospitalCalcium hydrogen phosphate dihydrate/Total in StoneOrdered By: Kera Reid on 63-58-4841Nyoterl hydrogen phosphate dihydrate (Stone) [Mass fraction]Calcium hydrogen phosphate dihydrate/Total in StoneMagruder Memorial HospitalCalcium oxalate dihydrate crystals detection in stone by infrared spectroscopyOrdered By: Kera Reid on 64-86-4226Ffmkyrg oxalate dihydrate crystals Infrared spectroscopy Ql (Stone)Calcium oxalate dihydrate crystals detection in stone by infrared spectroscopy.[facility] Calcium oxalate monohydrate/Total in StoneOrdered By: Kera Reid on 06-07-2024 Calcium oxalate monohydrate (Stone) [Mass fraction]Calcium oxalate monohydrate/Total in Stone.[facility] Memorial HospitalCalcium phosphate measurementOrdered By: Kera Reid on 88-32-5400Nqodikn phosphate (Stone) [Mass fraction]Calcium phosphate measurementMagruder Memorial HospitalCalculi, Urinaryon 17-60-8298Bg Oxalate Nquosudzo59 %Normal.[facility] Comment on above:Performed By: #### CBC #### [place] [address] USACa Oxalate Kdkngzqxadu96 %Normal.The [facility] Physician GroupComment on above:Performed By: #### CBC #### [place] [address] USAColor (U)BrownNormal.The [facility] Physician GroupComment on above:Performed By: #### CBC #### [place] [address] USAComment:CommentNormal.The [facility] Physician GroupComment on above:Result Comment: Physician questions regarding Calculi Analysis contact [facility] at: [phone].Performed By: #### CBC #### [place] [address] USACompositionCommentNormal.[facility] Comment on above:Result Comment: Percentage (Represents the % composition) Performed By: #### CBC #### [place] [address] USADisclaimer:CommentNormal.[facility] Comment on above:Result Comment: This test was developed and its performance characteristics determined by [facility]. It has not been cleared or approved by the Food and Drug Administration. Performed at: [address], [place] [id number] Order Checker: Lorie Farmer PhD, Phone: [phone] By: #### CBC #### [place] [id number] USANoteCommentNormal.The [facility] Physician GroupComment on above:Result Comment: Calculi report will follow via computer, mail or wildlife biologist delivery. PERFORMED BY: [place] [address] PATHOLOGIST RESERVATIONS SALES AGENT PETER COFFEY M.D.Performed By: #### CBC #### [place] [address] USAPhotoCommentNormal.The [facility] Physician GroupComment on above:Result Comment: Photograph will follow under a separate coverPerformed By: #### CBC #### [place] [address] VYTQbgv2p6Ykszqv.The [facility] Hospital Physician GroupComment on above:Result Comment: Multiple pieces received. Dimensions of the largest piece reported.Performed By: #### CBC #### [place] [address] USASourceCommentNormal.The [facility] Physician GroupComment on above:Result Comment: Right UreterPerformed By: #### CBC #### [place] [address] LGQDypbxn37.0Normal.The [facility] Physician GroupComment on above:Performed By: #### CBC #### [place] [id number] USACalculus analysis interpretation in stoneOrdered By: Kera Reid on 98-38-0122Yplygxsb analysis [Interp]Calculus analysis interpretation in stone.[facility]uder Memorial HospitalComment on above:Physician questions regarding Calculi Analysis contactLabcorp at: [phone].Calculi report will follow via computer, mail or courierdelivery.Calculus analysis with calculus photography interpretation in stoneOrdered By: Kera Reid on 78-59-1425Qeahnpnw analysis with calculus photography [Interp]Calculus analysis with calculus photography interpretation in stone.[facility] HospitalComment on above:Photograph will follow under a separate coverCalculus cholesterol measurementOrdered By: Kera Reid on 04-29-2429Wvklampjoth (Stone) [Mass fraction]Cholesterol/Total in StoneMagruder Memorial HospitalCellular material measurement in stone by estimated (mass/mass)Ordered By: Kera Reid on 37-66-2726Pvjifdsb material Est (Stone) [Mass/Mass]Cellular material measurement in stone by estimated (mass/mass)[facility] HospitalCystine measurementOrdered By: Kera Reid on 62-36-0557Wdkpihv (Unsp spec) [Moles/Vol] Cystine measurementMagruder Memorial HospitalDetermination of color of calculusOrdered By: Kera Reid on 70-95-5974Zejck (Stone)Determination of color of calculus.[facility] Memorial HospitalDetermination of stone composition Ordered By: Kera Reid on 38-86-3257Puaknyxoohq Nom (Stone)Composition of stone. [facility] Memorial HospitalComment on above:Percentage (Represents the % composition)Determination of volume of calculusOrdered By: Kera Reid on 82-77-6620Xdaj (Stone) [Entitic vol]Size [Entitic volume] of Stone.[facility] Memorial HospitalComment on above:Multiple pieces received. Dimensions of the largest piecereported.FL urethrocystogram retroon 81-29-2403QK urethrocystogram retroMAR[place] [address] Fluoroscopy Report Signed Patient: Ofe Saravia MR#: [id number] : 1955 Acct:[id number] Age/Sex: 68 / F ADM Date: 06/07/24 Loc: [place] Room: Type: [facility]ICE Attending Dr: Kera Reid MD Copies to: [...] Panda Jr., D.OCari06/07/2024 4:38 PM Dictation Location: [place] [address] Transcribed By: [facility] 06/07/241637 Dictated By: Miguel Panda Jr, DO 06/07/241637 Signed By: 06/07/[address] [place] [address] Physician GroupHydroxyapatite [Energy Difference] in 24 hour UrineOrdered By: Kera Reid on 59-53-5182Vecwdixxrfkbra (24H U) [Energy diff]Hydroxyapatite [Energy Difference] in 24 hour Urine [facility] 06-07-2024L Specimen: [id number] Received: 06/07/24 Status: YOSVANY Granger Num: [id number] Spec Type: Surgical Subm Dr: Kera Reid MD Tissues: A Urinary Calculus (RIGHT URETERAL STONE) Procedures: Level 1 Gross Age/ Patient Sex Location Account Attending Physician Ofe Saravia Skinny 68/F [place] [id number] Kera Reid MD SPEC NUM: [id number] RECD: 06/07/24 STATUS: YOSVANY GRANGER NUM: [id number] JOHNNIE: 06/07/24 DR: Kera Reid MD ENTERED: 06/07/[address]: DIEGO TYPE: Surgical DEPT: S ENTERED BY: [id number] RECV BY: [id number] ORDERED: Level 1 Gross ORDERED: Level 1 [...] chemical analysis. GROSS ONLY JG CPT Codes 85787 Specimen: [id number] Received: 06/07/24 Status: YOSVANY Granger Num: [id number] Spec Type: Surgical Subm Dr: Kera Reid MD Tissues: A Urinary Calculus (RIGHT URETERAL STONE) Procedures: Level 1 Gross Patient: JocyOfe tolentino Skinny [id number] (Continued) Signed (signature on file) Peter Coffey MD 06/09/[address] [place] [address] Physician GroupMeasurement of proportion of calculus composed of dried blood (mass/mass)Ordered By: Kera Reid on 06-07-2024 Blood.dried (Stone) [Mass fraction]Measurement of proportion of calculus composed of dried blood (mass/mass)[facility] Newberyite/Total in StoneOrdered By: Kera Reid on 38-03-5110Lqdsawlnrm (Stone) [Mass fraction]Newberyite/Total in StoneMagruder Memorial HospitalNo Panel InformationOrdered By: Kera Reid on 38-32-0297Rjyrv 2,8 Dihydroxyadenine N/[facility] Medical Centertone Analysis DisclaimerComment.[facility] Memorial HospitalComment on above:This test was developed and its performance characteristicsdetermined by [employer]. It has not been cleared or approvedby the Food and Drug Administration.Performed at: [address] [id number] Director: Lorie Farmer PhD, Phone: [phone] BilirubinateN/[facility] Medical Centertone Calcium PalmitateN/[facility] Medical Centerton Calcium StearateN/A [facility] Hospitaltone Carbonate ApatiteN/[facility] Centertone Drug or MetaboliteN/[facility] Centertone Other ConstituentN/[facility] Medical Centertone XanthineN/[facility] Medical Centerodium urate crystals detection in stone by infrared spectroscopyOrdered By: Kera Reid on 18-97-5719Icfxtq urate crystals Infrared spectroscopy Ql (Stone)Sodium urate crystals detection in stone by infrared spectroscopyMercy Memorial Hospitalpecimen source subject [Type] Ordered By: Kera Reid on 69-69-6192Nnuurzye source subject NomSpecimen source subject [Type].[facility] HospitalComment on above:Right Ureter Triamterene measurement in calculusOrdered By: Kera Reid on 06-07-2024 Triamterene (Stone) [Mass fraction]Triamterene measurement in calculusMagruder Memorial HospitalTriple phosphate/Total in StoneOrdered By: Kera Reid on 58-71-0434Jelpya phosphate (Stone) [Mass fraction]Triple phosphate/Total in StoneMagruder Memorial HospitalUric acid dihydrate crystals detection in stone by infrared spectroscopyOrdered By: Kera Reid on 65-79-5037Xrdrl dihydrate crystals Infrared spectroscopy Ql (Stone)Uric acid dihydrate crystals detection in stone by infrared spectroscopyMagruder Memorial HospitalBasic Metabolic Panelon 31-40-1466Rldva gap [Moles/Vol]10.0 mmol/LNormal6.0-15.0The [facility] Physician GroupComment on above:Performed By: #### CBC #### [facility] [address] [place] [address] USACalcium [Mass/Vol]9.1 mg/dLNormal8.6-10.3The [facility] Physician GroupComment on above:Result Comment: PERFORMED BY: [place] [address] PATHOLOGIST RESERVATIONS SALES AGENT TIFFANIE ROSS M.D.Performed By: #### CBC #### [place] [address] USAChloride [Moles/Vol]101 mmol/CFonlss72-901Zzw [facility] Physician GroupComment on above:Performed By: #### CBC #### [place] [address] USACO2 [Moles/Vol]32.9 mmol/LHigh21.0-31.0The [facility] Physician GroupComment on above:Performed By: #### CBC #### [place] [address] USACreatinine [Mass/Vol]0.62 mg/dLNormal0.60-1.20The [facility] Physician GroupComment on above:Performed By: #### CBC #### [place] [address] USAGFR/1.73 sq M.predicted MDRD (S/P/Bld) [Vol rate/Area] mL/min/{1.73_m2}NormalThe [facility] Physician GroupComment on above:Performed By: #### CBC #### [place] [address] USAGlucose [Mass/Vol]110 mg/lVPywr98-398Zyp [facility] Physician GroupComment on above:Result Comment: Random Glucose Reference Range is dependent on time and content of last meal. Glucose of more than 200 mg/dL in a nonstressed, ambulatory subject supports the diagnosis of Diabetes Mellitus. ADA recommended reference rangePerformed By: #### CBC #### [place] [address] USAPotassium [Moles/Vol]4.9 mmol/LNormal3.5-5.1The [facility] Physician GroupComment on above:Result Comment: Hemolysis is present at a level that could interfere with the result. Contact lab if redraw is requiredPerformed By: #### CBC #### [facility] [address] [place] [address] USASodium [Moles/Vol]139 mmol/HLjxpyw119-005Xxv [facility] Physician GroupComment on above:Performed By: #### CBC #### [facility] [address] [place] [address] USAUrea nitrogen [Mass/Vol]17 mg/dLNormal7-25The [facility] Physician GroupComment on above:Performed By: #### CBC #### [facility] [address] [place] [address] USABasophils Auto (Bld) [#/Vol]Ordered By: Kera Reid on 09-45-1901Lshirtpoa (Bld) [#/Vol]Automated basophil count0.0-0.2FHolzer Health SystemBasophils/100 WBC Auto (Bld)Ordered By: Kera Reid on 02-61-8358Awkctotrf/100 WBC (Bld)Automated basophil %.[facility] Memorial HospitalCalcium [Mass/volume] in Serum or PlasmaOrdered By: Kera Reid on 72-19-1419Jhclaun [Mass/Vol]Calcium [Mass/volume] in Serum or Plasma8.6-10.3 [facility] HospitalCarbon dioxide, total [Moles/volume] in Serum or PlasmaOrdered By: Kera Reid on 29-96-6434VD2 [Moles/Vol]Carbon dioxide, total [Moles/volume] in Serum or TbwkxyVpkc18.0-31.0[facility] Chloride [Moles/volume] in Serum or PlasmaOrdered By: Kera Reid on 05-31-2024 Chloride [Moles/Vol]Chloride [Moles/volume] in Serum or Zqpfaa06-381TkxwcbsizMagruder Memorial HospitalComplete Blood Count Auto Diffon 81-95-8743Zzdrpblvq (Bld) [#/Vol]0.0 10*3/uLNormal0.0-0.2The [facility] Physician GroupComment on above:Result Comment: PERFORMED BY: [place] [address] PATHOLOGIST RESERVATIONS SALES AGENT TIFFANIE ROSS M.D.Performed By: #### CBC #### [facility] [address] [place] [address] USABasophils/100 WBC (Bld)0.5 %Normal.The [facility] Physician GroupComment on above:Performed By: #### CBC #### [facility] [address] [place] [address] USAEosinophils (Bld) [#/Vol]0.1 10*3/uLNormal0.0-0.45The [facility] Physician GroupComment on above:Performed By: #### CBC #### [facility] [address] [place] [id number] USAEosinophils/100 WBC (Bld)1.8 %Normal.The [facility] Physician GroupComment on above:Performed By: #### CBC #### [place] [address] USAErythrocyte distribution width (RBC) [Ratio]13.3 %Normal 11.9-15.3The [facility] Physician GroupComment on above:Performed By: #### CBC #### [place] [id number] USAHematocrit (Bld) [Volume fraction]37.7 %Qznfwp34.0-46.4The [facility] Physician GroupComment on above:Performed By: #### CBC #### [place] [id number] USAHemoglobin (Bld) [Mass/Vol]12.9 g/qISfkime66.8-15.4The [facility] Physician GroupComment on above:Performed By: #### CBC #### [facility] [address] [place] [id number] USALymphocytes (Bld) [#/Vol]1.4 10*3/uLNormal1.00-4.8The [facility] Physician GroupComment on above:Performed By: #### CBC #### [place] [id number] USALymphocytes/100 WBC (Bld)26.9 %Normal.The [facility] Physician GroupComment on above:Performed By: #### CBC #### [facility] [address] [place] [address] USAMCH (RBC) [Entitic mass]32.2 uvKjxemv41.7-34.3The [facility] Physician GroupComment on above:Performed By: #### CBC #### [facility] [address] [place] [address] USAMCV (RBC) [Entitic vol]94.0 jXMjmptm34-733Haj [facility] Physician GroupComment on above:Performed By: #### CBC #### [facility] [address] [place] [address] USAMean Corpuscular HGB Conc34.3 g/xTAsowaa56.0-35.0The [facility] Physician GroupComment on above:Performed By: #### CBC #### [facility] [address] [place] [address] USAMonocytes (Bld) [#/Vol]0.4 10*3/uLNormal0.0-0.8The [facility] Physician GroupComment on above:Performed By: #### CBC #### [facility] [address] [place] [address] USAMonocytes/100 WBC (Bld)8.2 %Normal.The [facility] Physician GroupComment on above:Performed By: #### CBC #### [facility] [address] [place] [address] USANeutrophils (Bld) [#/Vol]3.3 10*3/uLNormal1.8-7.7The [facility] Physician GroupComment on above:Performed By: #### CBC #### [facility] [address] [place] [id number] USANeutrophils/100 WBC (Bld)62.6 %Normal.The [facility] Physician GroupComment on above:Performed By: #### CBC #### [place] [address] USANRBC%0.0 /100{WBC}Normal0-0.5The [facility] Comment on above:Performed By: #### CBC #### [facility] [address] [place] [address] USAPlatelet mean volume (Bld) [Entitic vol]7.7 fLNormal 6.3-10.7The [facility] Physician GroupComment on above:Performed By: #### CBC #### [facility] [address] [place] [address] USAPlatelets (Bld) [#/Vol]290 10*3/dPIrjfsg394-249Dks [facility] Physician GroupComment on above:Performed By: #### CBC #### [facility] [address] [place] [address] USARBC (Bld) [#/Vol]4.01 10*6/uLNormal3.60-5.00The [facility] Physician GroupComment on above:Performed By: #### CBC #### [facility] [address] [place] [address] USAWBC (Bld) [#/Vol]5.3 10*3/uLNormal3.8-11.6The [facility] Physician GroupComment on above:Performed By: #### CBC #### [facility] [address] [place] [address] USACreatinine [Mass/volume] in Serum or PlasmaOrdered By: Kera Reid on 25-54-2137Tqxjalbmbz [Mass/Vol]Creatinine [Mass/volume] in Serum or Plasma0.60-1.20[facility] HospitalEosinophils Auto (Bld) [#/Vol] Ordered By: Kera Reid on 08-11-6966Pmmfnqunkcl (Bld) [#/Vol]Automated eosinophil count0.0-0.45[facility] HospitalEosinophils/100 WBC Auto (Bld) Ordered By: Kera Reid on 65-72-6955Tkvsltdhdhn/100 WBC (Bld)Automated eosinophil %.[facility] HospitalErythrocyte distribution width Auto (RBC) [Ratio]Ordered By: Kera Reid on 14-30-1941Ccighombvya distribution width (RBC) [Ratio]Erythrocyte distribution width [Ratio] by Automated count11.9-15.3 [facility] HospitalGlucose [Mass/volume] in Serum or PlasmaOrdered By: Kera Reid on 61-38-0266Ejaeybq [Mass/Vol]Glucose [Mass/volume] in Serum or RvxejzLpmi37-579KifytktdjMagruder Memorial HospitalComment on above:ADA recommended reference rangeRandom Glucose Reference Range is dependent on time and content of last meal. Glucose of more than 200 mg/dL in a nonstressed, ambulatory subject supports the diagnosisof Diabetes Mellitus.Hematocrit Auto (Bld) [Volume fraction]Ordered By: Kera Reid on 87-62-8568Wojzdeybdv (Bld) [Volume fraction]Hematocrit [Volume Fraction] of Blood by Automated count 34.0-46.4FHolzer Health SystemHemoglobin [Mass/volume] in Blood Ordered By: Kera Reid on 00-72-6308Apiqhkwjrg (Bld) [Mass/Vol]Hemoglobin [Mass/volume] in Blood11.8-15.4FHolzer Health SystemLeukocytes [#/volume] corrected for nucleated erythrocytes in Blood by Automated coun Ordered By: Kera Reid on 79-64-1324NEM corrected for nucl RBC Auto (Bld) [#/Vol] Leukocytes [#/volume] corrected for nucleated erythrocytes in Blood by Automated coun3.8-11.6FHolzer Health SystemLymphocytes Auto (Bld) [#/Vol] Ordered By: Kera Reid on 34-97-7104Zqphrjjwvlq (Bld) [#/Vol]Lymphocytes [#/volume] in Blood by Automated count1.00-4.8[facility] Lymphocytes/100 WBC Auto (Bld)Ordered By: Kera Reid on 14-47-3239Gvobgeipqla/100 WBC (Bld)Lymphocytes/100 leukocytes in Blood by Automated count.[facility] HospitalMCH Auto (RBC) [Entitic mass]Ordered By: Kera Reid on 25-79-3941JAL (RBC) [Entitic mass]MCH [Entitic mass] by Automated count24.7-34.3 [facility] HospitalMCHC Auto (RBC) [Mass/Vol]Ordered By: Kera Reid on 69-79-2335QZNQ (RBC) [Mass/Vol]MCHC [Mass/volume] by Automated count 32.0-35.0[facility] HospitalMCV Auto (RBC) [Entitic vol]Ordered By: Kera Reid on 85-21-5572NNH (RBC) [Entitic vol]MCV [Entitic volume] by Automated gfidm98-271TngfokpmmMagruder Memorial HospitalMonocytes Auto (Bld) [#/Vol]Ordered By: Kera Reid on 97-54-2130Uwynxhjdq (Bld) [#/Vol]Automated blood monocyte count0.0-0.8[facility] HospitalMonocytes/100 WBC Auto (Bld)Ordered By: Kera Reid on 15-18-8762Glyuowuqg/100 WBC (Bld)Automated monocyte %.[facility] HospitalNeutrophils Auto (Bld) [#/Vol] Ordered By: Kera Reid on 25-71-9914Bvtnvipvhrw (Bld) [#/Vol]Neutrophils [#/volume] in Blood by Automated count1.8-7.7FHolzer Health System Neutrophils/100 WBC Auto (Bld)Ordered By: Kera Reid on 30-83-7976Xctubapxodx/100 WBC (Bld)Automated neutrophil %.[facility] HospitalNo Panel InformationOrdered By: Kera Reid on 78-46-5211Xrdbfqfhw GFR (CKD-EPI)> 60.0 mL/MinMagruder Memorial HospitalPharmacy Creatinine Clearance (ChemN/A [facility] HospitalNucleated erythrocytes [Presence] in Blood by Automated countOrdered By: Kera Reid on 61-37-1490Xmmcepoqo RBC Auto Ql (Bld) Nucleated erythrocytes [Presence] in Blood by Automated count0-0.5FHolzer Health SystemPlatelet mean volume Auto (Bld) [Entitic vol]Ordered By: Kera Reid on 54-91-2335Ejgruzpa mean volume (Bld) [Entitic vol]Platelet mean volume [Entitic volume] in Blood by Automated count6.3-10.7FHolzer Health SystemPlatelets Auto (Bld) [#/Vol]Ordered By: Kera Reid on 05-31-2024 Platelets (Bld) [#/Vol]Platelets [#/volume] in Blood by Automated -634 [facility] HospitalPotassium [Moles/volume] in Serum or Plasma Ordered By: Kera Reid on 98-74-5547Bczfkgoak [Moles/Vol]Potassium [Moles/volume] in Serum or Plasma3.5-5.1FHolzer Health SystemComment on above: Hemolysis is present at a level that could interfere with the result.Contact lab if redraw is requiredRBC Auto (Bld) [#/Vol]Ordered By: Kera Reid on 05-31-2024 RBC (Bld) [#/Vol]Erythrocytes [#/volume] in Blood by Automated count3.60-5.00 [facility] Hospitalerum or plasma anion gap determinationOrdered By: Kera Reid on 06-14-2530Nxsvt gap [Moles/Vol]Serum or plasma anion gap determination6.0-15.0[facility] Hospitalodium [Moles/volume] in Serum or PlasmaOrdered By: Kera Reid on 92-50-0841Ckrsea [Moles/Vol]Sodium [Moles/volume] in Serum or Ojamsy195-879KfstrviogMagruder Memorial HospitalUrea nitrogen [Mass/volume] in Serum or PlasmaOrdered By: Kera Reid on 64-28-4977Ezdp nitrogen [Mass/Vol]Urea nitrogen [Mass/volume] in Serum or Plasma7-25[facility] HospitalWBC Auto (Bld) [#/Vol]Ordered By: Kera Reid on 05-31-2024 WBC (Bld) [#/Vol]Leukocytes [#/volume] in Blood by Automated count3.8-11.6 [facility] HospitalECG 12 [place] 09-73-0868Rwmemn sinus rhythm at 68 bpm MS interval 144 ms QRS duration 90 ms QTc 446 ms pattern of septal myocardial infarction nonspecific ST-T abnormality no change [facility] Work Phone: Urology Office/Clinic Noteon 59-29-4512Oweujks Office/Clinic NoteUrology Office/Clinic Note Chief Complaint flank [...] E&M of Est. Patient Moderate 30-39 Min 49403 Influenza immunization status assessed 1030F Medication list [...] Urnls Dip Stick Auto w/o Microscopy POC 90666 2. Ureteral stone with hydronephrosis (N13.2: Hydronephrosis with renal and ureteral calculous obstruction) See #1 Ordered: E&M of Est. Patient Moderate 30-39 Min 89150 Follow-up With When Contact Information ANN FORTE PA-C, URL Only if needed [address] [place] [address] Business (1) Additional Instructions: Patient [...] Smokeless Tobacco Use:., 05/17/2024 (more content not included)...[facility] HospitalComment on above: Result Comment: Electronically Signed By: ANN FORTE PA-Cbr\Date and Time Signed: 05/17/2413:46 EDTAmbulatory Visit Summaryon 57-46-9745Athefkpgyj Visit SummaryAmbulatory Visit Summary OFE SARAVIA :1955 [...] A focused beam o (more content not included)...[facility] Office/Clinic Noteon 22-64-0406Qdaxbhn Office/Clinic NoteUrology Office/Clinic Note Chief Complaint 9 month follow up with KUB, CEASAR HPI Staff 68 yr old [facility] patient here for 9 month f/u w/ KUB and CEASAR. KUB and CEASAR done 04/07/24 at [facility]. Per pt one stone passed about [...] 6mm L nonobstructing nephr (more content not included)...[facility] HospitalComment on above:Result Comment: Electronically Signed By: Cedric FLOYD, Kera Regalado\.br\Date and Time Signed: 04/13/24 12:21EDT\.br\Electronically Co-Signed By: Andrew Marin A\.br\Date and Time Co-Signed: 04/13/24 11:45 EDT \.br\Electronically Co-Signed By: Andrew Marin A\.br\Date and Time Co-Signed: 04/13/24 11:46 EDTAmbulatory Visit Summaryon 46-03-6464Ydcbmbxwoj Visit Summary Ambulatory Visit Summary OFE SARAVIA [...] FLOYD, Kera Regalado Where: [facility] [address] [place] [address]- You Need to Schedule the Following Appointments Follow Up with ANN FORTE PA-C, URL When: Where: [address] [place] [address] [phone] Medications What How Much When Instructions Unchanged [...] you for choosing us for your care. [facility] HospitalUrology Office/Clinic Noteon 51-00-8388Lzbqfdz Office/Clinic NoteUrology Office/Clinic Note Chief Complaint Right [...] urine cx done with her PCP in [place]. Urine cx 03/09/24: negative PVR: 0 ml [...] 6mm L nonobstructing nephrolith. No L hydro. [place] she was passing a stone 2wks ago. [...] Information Cedric FLOYD, Kera Regalado, URL, [facility] [address] [place] [address] [phone] Additional Instructions: keep 04/06/24 appt Patient Education Kidney Stones, Zfxx-rb-Igta Documentation recorded by the scribe Alejandra Garcia accurately reflects the services(s) I performed anddecisions made by me. Authenticated by Ann Forte PA-C on 03/17/2024 14:49:21. I, Alejandra Garcia, personally scribed for Ann Forte PA-C on 03/17/2024 13:1 (more content not included)...[facility] HospitalComment on above: Result Comment: Electronically Signed By: ANN FORTE PA-C\.br\Date and Time Signed: 03/17/2414:49 EDT\.br\Electronically Co-Signed By: Alejandra Garcia\.jimmie\Date and Time Co-Signed: 03/17/24 13:16 EDTCreatinine (Bld) [Mass/Vol] Ordered By: Shasta Wade on 18-67-5581Dbdubszajr [Mass/Vol]0.6 mg/dL0.6-1.3 [facility] HospitalComment on above:ER/ESD physician is notified/shown all ISTAT results.Critical values may be confirmed by laboratory testing ifdeemed necessary by ER attending doctor.No Panel InformationOrdered By: Shasta Wade on 66-40-9723Nnquuwe Estimated GFR (eGFR)> 60.0[facility] HospitalCT ABD/PELVIS WO CONon 07-36-2887SG ABD/PELVIS WO CONEXAMINATION: CT ABD/PELVIS WO CON, [...] Electronically authenticated by: ARMANDO HOLLINGSWORTH Date: 2022-11-12 11:22[facility] KIDNEYSon [id number] KIDNEYSUS KIDNEYS EXAM DATE: 07/08/2022 5:54 AM MST COMPARISON: Same day radiograph, CT abdomen and pelvis without contrast 07/31/2021 INDICATION: History of kidney stones. TECHNIQUE: Real-time ultrasound scanning of the kidneys and bladder was performed by the review rn. Instrumentation Technologist static images are submitted for review. FINDINGS: [...] Electronically authenticated by: JARAD BENAVIDES Date: 2022-07-08 16:58[facility] HospitalXR KUB 1 VIEWon 59-87-7958RE KUB 1 VIEWEXAM: XR KUB 1 VIEW [...] Electronically authenticated by: JARAD BENAVIDES Date: 2022-07-08 17:05[facility] HospitalXR DEXA BONE DENSITYon 97-40-8527IE DEXA BONE DENSITY EXAMINATION: XR DEXA BONE [...] Electronically authenticated by: ARMANDO HOLLINGSWORTH Date: 2022-06-05 12:51[facility] HospitalCT FOOT RT WO CONon [id number] FOOT RT WO CONEXAMINATION: CT FOOT RT [...] Electronically authenticated by: ARMANDO HOLLINGSWORTH Date: 2022-02-27 18:17[facility] HospitalT4 FREE/FREE THYROXon 97-90-7612Llje T4 [Mass/Vol]1.0 ng/dL0.9 - 1.7 ng/dLSouthern [facility] Center BLDon 72-42-6640IQJ Qn2.420 m[IU]/L0.270 - 4.200 mIU/LC[facility] Vital Signs Date TimeVital SignValuePerforming SrahpokdyRnlukzuk12-56-1850 09:37-0400Body cmAdarsMethodist Stone Oak Hospitalepureddy MD Work Phone: [facility]08-27-2025 09:37-0400Body mass index (BMI) [Ratio]26.4 kg/g3AitdpuIsaac Gracia MD Work Phone: [facility]08-27-2025 09:37-0400Body temperature 97.39 [degF]Isaac Gracia MD Work Phone: [facility]08-27-2025 09:37-0400Body qcenog94.1 kgIsaac Gracia MD Work Phone: [facility]08-27-2025 09:37-0400Diastolic blood qrcorxhg31 mm[Hg]Isaac Gracia MD Work Phone: [facility]08-27-2025 09:37-0400Heart rate73 /min Isaac Gracia MD Work Phone: [facility]08-27-2025 09:37-0400Respiratory rate 16 /minIsaac Gracia MD Work Phone: [facility]08-27-2025 09:37-5647AyN3% (BldA) [Mass fraction]96 %Isaac Gracia MD Work Phone: [facility]08-27-2025 09:37-0400Systolic blood iabihchz408 mm[Hg]Isaac Gracia MD Work Phone: [facility]08-26-2025 12:51-0400Body mass index (BMI) [Ratio]26.47 kg/r2TnmvqdShawna Flores MD, PhD Work Phone: [facility]08-26-2025 12:51-0400Body ciexlg53.3 kgShawna Flores MD, PhD Work Phone: [facility]08-26-2025 12:51-0400Diastolic blood atkisoud88 mm[Hg]Shawna Flores MD, PhD Work Phone: [facility]08-26-2025 12:51-0400Heart rate72 /min Shawna Flores MD, PhD Work Phone: [facility]08-26-2025 12:51-5880ZhL8% (BldA) [Mass fraction]97 %Shawna Flores MD, PhD Work Phone: [phone]08-26-2025 12:51-0400Systolic blood vqbafthq66 mm[Hg]Shawna Flores MD, PhD Work Phone: [facility]08-12-2025 10:29-0400Body mass index (BMI) [Ratio]26.7 kg/v3UpjwjvvfNovant Health [facility] Center AUTOMOBILE BODY CUSTOMIZER.PARKING LOT ATTENDANT AND CASHIER Work Phone: [phone] Health System Galion HospitalNtwnbl84-54-7361 10:29-0400Body temperature 97.9 [degF][facility] AUTOMOBILE BODY CUSTOMIZER.PARKING LOT ATTENDANT AND CASHIER Work Phone: AAvita Health System Galion HospitalRjjqhp05-00-0546 10:29-0400Body kjczot65 kg [facility] AUTOMOBILE BODY CUSTOMIZER.PARKING LOT ATTENDANT AND CASHIER Work Phone: HAvita Health System Galion HospitalHlgeny56-98-6823 10:29-0400Diastolic blood gajnqhhe38 mm[Hg][facility] AUTOMOBILE BODY CUSTOMIZER.PARKING LOT ATTENDANT AND CASHIER Work Phone: PAvita Health System Galion HospitalAmebeu58-97-4501 10:29-0400Heart rate78 /min [facility] AUTOMOBILE BODY CUSTOMIZER.PARKING LOT ATTENDANT AND CASHIER Work Phone: [place] [address]-12-2025 10:29-0400Respiratory rate 16 /minNov[facility] Health Clemm[facility] Medical Center AUTOMOBILE BODY CUSTOMIZER.PARKING LOT ATTENDANT AND CASHIER Work Phone: OAvita Health System Galion HospitalIcbhzn78-42-8262 10:29-7638GnM0% (BldA) [Mass fraction]100 %[facility] AUTOMOBILE BODY CUSTOMIZER.PARKING LOT ATTENDANT AND CASHIER Work Phone: [place] [address]-12-2025 10:29-0400Systolic blood mm[Hg][facility] AUTOMOBILE BODY CUSTOMIZER.PARKING LOT ATTENDANT AND CASHIER Work Phone: CAvita Health System Galion HospitalKcxnis24-51-0389 09:28-0400Body mass index (BMI) [Ratio]26.97 kg/m2MIREYA Smart MD Work Phone: [facility]08-04-2025 09:28-0400Body accmto48.8 kgMIREYA Smart MD Work Phone: [facility]08-04-2025 09:28-0400Diastolic blood kcytunov97 mm[Hg]MIREYA Smart MD Work Phone: [facility]08-04-2025 09:28-0400Heart rate76 /min MIREYA Smart MD Work Phone: [facility]08-04-2025 09:28-0400Respiratory rate 16 /HangMIREYA Smart MD Work Phone: [facility]08-04-2025 09:28-0676FnH5% (BldA) [Mass fraction]97 %MIREYA Smart MD Work Phone: [facility]08-04-2025 09:28-0400Systolic blood wbqkspey640 mm[Hg]MIREYA Smart MD Work Phone: [facility]07-28-2025 09:34-0400Body mass index (BMI) [Ratio]26.87 kg/m2MIREYA Smart MD Work Phone: [facility]07-28-2025 09:34-0400Body temperature 96.01 [degF]MIREYA Smart MD Work Phone: [facility]07-28-2025 09:34-0400Body yomghn52.5 kgMIREYA Smart MD Work Phone: [facility]07-28-2025 09:34-0400Diastolic blood iggkkrhl18 mm[Hg]MIREYA Smart MD Work Phone: [facility]07-28-2025 09:34-0400Heart rate77 /min MIREYA Smart MD Work Phone: [place] [address]-28-2025 09:34-0400Respiratory rate 18 /HangMIREYA Smart MD Work Phone: [facility]07-28-2025 09:34-0400Systolic blood wiexlgax777 mm[Hg]MIREYA Smart MD Work Phone: [facility]07-23-2025 15:28-0400Body mass index (BMI) [Ratio]26.97 kg/m2MIREYA Smart MD Work Phone: [facility]07-23-2025 15:28-0400Body temperature 97.59 [degF]MIREYA Smart MD Work Phone: [facility]07-23-2025 15:28-0400Body upyckr66.8 kgMIREYA Smart MD Work Phone: [facility]07-23-2025 15:28-0400Diastolic blood rnefjpts50 mm[Hg]MIREYA Smart MD Work Phone: [facility]07-23-2025 15:28-0400Heart rate84 /min MIREYA Smart MD Work Phone: [facility]07-23-2025 15:28-0400Respiratory rate 18 /HangMIREYA Smart MD Work Phone: [facility]07-23-2025 15:28-7544OhL4% (BldA) [Mass fraction]97 %MIREYA Smart MD Work Phone: [facility]07-23-2025 15:28-0400Systolic blood buxcypws704 mm[Hg]MIREYA Smart MD Work Phone: [facility]07-21-2025 15:44-0400Body .99 Shalini Clements JR Work Phone: [facility]07-21-2025 15:44-0400 Body mass index (BMI) [Ratio]26.5 kg/a4CalmjewAsya Clements JR Work Phone: [phone] [place], [place] 5084007-21-2025 15:44-0400 Body thsout88.28 kgAsya Clements JR Work Phone: [phone]07-21-2025 15:44-0400 Diastolic blood agvhbdyr55 mm[Hg]Asya Clements JR Work Phone: [phone]07-21-2025 15:44-0400 Heart rate84 /minAsya Clements JR Work Phone: [phone] [place], [place] 5084007-21-2025 15:44-0400 Respiratory rate16 /minAsya Clements JR Work Phone: [phone] [place], [place] 5084007-21-2025 15:44-0400 SaO2% (BldA) [Mass fraction]92 %Asya Clements JR Work Phone: [phone] [place], [place] 5084007-21-2025 15:44-0400 Systolic blood feyvzsyw090 mm[Hg]Asya Clements JR Work Phone: [phone] [place], [place] 5084007-17-2025 08:25-0400 Body pddmin589 cmNA Kai FLOYD Work Phone: [facility]07-17-2025 08:25-0400Body mass index (BMI) [Ratio]27.18 kg/m2MIREYA Smart MD Work Phone: [facility]07-17-2025 08:25-0400Body temperature 97.39 [degF]MIREYA Smart MD Work Phone: [facility]07-17-2025 08:25-0400Body mezdxg27.4 kgMIREYA Smart MD Work Phone: [facility]07-17-2025 08:25-0400Diastolic blood quuyqzje40 mm[Hg]MIREYA Smart MD Work Phone: [facility]07-17-2025 08:25-0400Heart rate78 /min MIREYA Smart MD Work Phone: [facility]07-17-2025 08:25-0400Respiratory rate 16 /HangMIREYA Smart MD Work Phone: [facility]07-17-2025 08:25-9825WoS1% (BldA) [Mass fraction]97 %MIREYA Smart MD Work Phone: [facility]07-17-2025 08:25-0400Systolic blood cutmftxm165 mm[Hg]NA Kai FLOYD Work Phone: [facility]07-10-2025 08:18-0400Body axaqfo223 cm Isaac Gracia MD Work Phone: [phone] [place], [place] 9201007-10-2025 08:18-0400Body mass index (BMI) [Ratio]27.41 kg/z4OqlmhwIsaac Gracia MD Work Phone: cAv[facility] Gal[facility] HospitalJbhsae27-37-3818 08:18-0400Body temperature 97.9 [degF]Isaac Gracia MD Work Phone: [phone] [place], [place] 9201007-10-2025 08:18-0400Body nzscua37.1 kgAdatho Gracia MD Work Phone: [phone] [place], [place] 9201007-10-2025 08:18-0400Diastolic blood mm[Hg]Isaac Gracia MD Work Phone: cAv[facility] HospitalVdrjyq04-71-5264 08:18-0400Heart rate81 /min Isaac Gracia MD Work Phone: [phone] [place] [address]-10-2025 08:18-0400Respiratory rate 16 /minAdatho Gracia MD Work Phone: [place] [address]-10-2025 08:18-6479SmN8% (BldA) [Mass fraction]94 %Isaac Gracia MD Work Phone: c[facility] HospitalFcsfdc92-97-6940 08:18-0400Systolic blood hlmlucpu971 mm[Hg]Isaac Gracia MD Work Phone: c[facility] HospitalWzrpwc18-24-0929 09:51-0400Body ujagob557 cm Isaac Gracia MD Work Phone: c[facility] HospitalWwxxbv04-96-5725 09:51-0400Body mass index (BMI) [Ratio]28.43 kg/q6ZlbjzfIsaac Gracia MD Work Phone: c[facility] HospitalHddwyu17-44-8892 09:51-0400Body temperature 97.2 [degF]Isaac Gracia MD Work Phone: c[facility] HospitalXzmkiy15-77-7921 09:51-0400Body ojknga43.1 kgAdatho Gracia MD Work Phone: c[facility] HospitalYnirwd14-06-1944 09:51-0400Diastolic blood jgkpojeo89 mm[Hg]Isaac Gracia MD Work Phone: [phone] [place], [place] 9201006-18-2025 09:51-0400Heart rate71 /min Isaac Gracia MD Work Phone: c[facility] HospitalFgutxt40-84-5285 09:51-0400Respiratory rate 16 /minAdatho Gracia MD Work Phone: c[facility] HospitalAxmoxn14-31-2632 09:51-1133UoL7% (BldA) [Mass fraction]99 %Isaac Gracia MD Work Phone: c[facility] HospitalHtbxck07-77-1150 09:51-0400Systolic blood xnlnpurl779 mm[Hg]Isaac Gracia MD Work Phone: c[facility] Gal[facility] HospitalSuhysf51-48-7445 09:52-0400Body ljeazb920 cm Ulisses Baum PA-C Work Phone: [facility]05-28-2025 09:52-0400Body mass index (BMI) [Ratio]29.34 kg/x0ViezuUlisses Baum PA-C Work Phone: [facility]05-28-2025 09:52-0400Body temperature 97.2 [degF]Ulisses Isrrael PA-C Work Phone: [facility]05-28-2025 09:52-0400Body .8 kgMinflako Salaser PA-C Work Phone: [facility]05-28-2025 09:52-0400Diastolic blood mm[Hg]Ulisses Isrrael PA-C Work Phone: [facility]05-28-2025 09:52-0400Heart rate82 /min Ulisses Isrrael PA-C Work Phone: [facility]05-28-2025 09:52-0400Respiratory rate 16 /minMinflako Isrrael PA-C Work Phone: [facility]05-28-2025 09:52-6854NuD8% (BldA) [Mass fraction]94 %Ulisses Isrrael PA-C Work Phone: [facility]05-28-2025 09:52-0400Systolic blood mm[Hg]Ulisses Isrrael PA-C Work Phone: [facility]05-07-2025 11:10-0400Body nksech190 cm Vincent Krishna PRINCE.PARKING LOT ATTENDANT AND CASHIER Work Phone: c[facility] HospitalOgtgrc31-56-2724 11:10-0400Body mass index (BMI) [Ratio]29.17 kg/o4Tevfiutho Gracia MD Work Phone: c[facility] Gal[facility] HospitalWigscz76-53-9433 11:10-0400Body temperature 97.59 [degF]Vincent Estrada AUTOMOBILE BODY CUSTOMIZER.PARKING LOT ATTENDANT AND CASHIER Work Phone: [place] Rlaiez05-81-5383 11:10-0400Body fytkzq86.3 kgAdatho Gracia MD Work Phone: [facility]and Onacxo02-80-4319 11:10-0400Diastolic blood owdppbud50 mm[Hg]Isaac Gracia MD Work Phone: [facility] Nmysyj21-45-3051 11:10-0400Heart rate79 /min Isaac Gracia MD Work Phone: [facility] Evxjpu84-58-8785 11:10-0400Respiratory rate 16 /minIsaac Gracia MD Work Phone: [facility] Xefakv15-21-9874 11:10-1931BxE9% (BldA) [Mass fraction]97 %Isaac Gracia MD Work Phone: [facility]and Qqmwtj66-20-1439 11:10-0400Systolic blood guuojkni224 mm[Hg]Isaac Gracia MD Work Phone: [facility] Pcfhgs55-81-6571 10:00-0400Body temperature 97.9 [degF]Isaac Gracia MD Work Phone: [facility] HospitalVduhpi33-37-3068 13:09-0400Body mhegzt403.3 Anupama Wade PA Work Phone: [facility] HospitalMlgebkwcae07-21-5102 13:09-0400Body mass index (BMI) [Ratio]28.06 kg/m2Shasta ONEIL Work Phone: no[facility] HospitalSaqiekxohd37-44-0462 13:09-0400Body dldgoz31.18 kgShasta ONEIL Work Phone: no[facility] HospitalElirbpellz93-58-5259 13:09-0400Diastolic blood eezvtlqu33 mm[Hg]Shasta ONEIL Work Phone: NO[facility] HospitalIfjhrynojn03-29-9956 13:09-0400Heart rate86 /min Shasta ONEIL Work Phone: NO[facility] HospitalOgyagwtlts57-10-1725 13:09-0400Respiratory rate16 /minShasta Wade PA Work Phone: no[facility] HospitalFfpfjjldcd64-41-6528 13:09-4702KjO2% (BldA) [Mass fraction]96 %Shasta ONEIL Work Phone: [facility] HospitalUxtvdgrswu20-69-7265 13:09-0400Systolic blood mbwxovmo451 mm[Hg]Shasta ONEIL Work Phone: [facility] HospitalQuguwuufks17-67-1293 08:58-0400Body mass index (BMI) [Ratio]29.04 kg/j9XxzqglIsaac Gracia MD Work Phone: [facility] HospitalLodozb71-09-5774 08:58-0400Body temperature 97.3 [degF]Isaac Gracia MD Work Phone: [place] [address]-16-2025 08:58-0400Body .9 kgAdatho Gracia MD Work Phone: [facility] HospitalBrczca09-88-4986 08:58-0400Diastolic blood hswkdkga98 mm[Hg]Isaac Gracia MD Work Phone: [facility] HospitalCwagje11-10-5574 08:58-0400Heart sace361 /minAdatho Gracia MD Work Phone: [facility] HospitalAqvwiv83-99-7941 08:58-0400Respiratory rate 18 /minAdatho Gracia MD Work Phone: [facility] HospitalJyyfnk10-95-9610 08:58-6602CaA1% (BldA) [Mass fraction]99 %Isaac Gracia MD Work Phone: [facility] HospitalGbpviq36-13-0364 08:58-0400Systolic blood mm[Hg]Isaac Gracia MD Work Phone: [facility] HospitalZyzjfz63-07-1843 09:07-0400Body acqfxi708 cm Ann-Marie Gomez APRN.CNP Work Phone: [facility]03-26-2025 09:07-0400Body mass index (BMI) [Ratio]29.04 kg/e3SzosqmAnn-Marie Gomez APRN.CNP Work Phone: [facility]03-26-2025 09:07-0400Body temperature 97.3 [degF]Ann-Marie Christy AUTOMOBILE BODY CUSTOMIZER.PARKING LOT ATTENDANT AND CASHIER Work Phone: [facility]03-26-2025 09:07-0400Body acejzt01.9 kgJaimee Christy AUTOMOBILE BODY CUSTOMIZER.PARKING LOT ATTENDANT AND CASHIER Work Phone: [facility]03-26-2025 09:07-0400Diastolic blood lduoqchu37 mm[Hg]Ann-Marie Christy AUTOMOBILE BODY CUSTOMIZER.PARKING LOT ATTENDANT AND CASHIER Work Phone: [facility]03-26-2025 09:07-0400Heart hygr388 /minJaimee Christy AUTOMOBILE BODY CUSTOMIZER.PARKING LOT ATTENDANT AND CASHIER Work Phone: [facility]03-26-2025 09:07-0400Respiratory rate 16 /minJaimee Christy AUTOMOBILE BODY CUSTOMIZER.PARKING LOT ATTENDANT AND CASHIER Work Phone: [facility]03-26-2025 09:07-2797ZjG7% (BldA) [Mass fraction]96 %Ann-Marie Christy AUTOMOBILE BODY CUSTOMIZER.PARKING LOT ATTENDANT AND CASHIER Work Phone: [facility]03-26-2025 09:07-0400Systolic blood vwbtsrek819 mm[Hg]Ann-Marie Christy AUTOMOBILE BODY CUSTOMIZER.PARKING LOT ATTENDANT AND CASHIER Work Phone: [facility]03-24-2025 12:41-0400Body euqora809.3 Anupama ONEIL Work Phone: no[facility] HospitalSarnppyocj13-03-1407 12:41-0400Body mass index (BMI) [Ratio]27.91 kg/m2Shasta ONEIL Work Phone: NO[facility] HospitalFhqrklaaqi39-57-2279 12:41-0400Body mdnlgy01.73 kgShasta ONEIL Work Phone: no[facility] HospitalYfgffwnjhf69-12-4703 12:41-0400Diastolic blood gkarxgqg00 mm[Hg]Shasta ONEIL Work Phone: [place] [address]Sevelhzckr15-38-5072 12:41-0400Heart yapc116 /min Shasta ONEIL Work Phone: [place] [address]Lbiysiztya11-29-4090 12:41-0400Respiratory rate16 /minShasta ONEIL Work Phone: NO[facility] HospitalFecbelswzb74-20-3997 12:41-7731LoA3% (BldA) [Mass fraction]92 %Shasta ONEIL Work Phone: NO[facility] HospitalZkjqbpxbyu17-49-7051 12:41-0400Systolic blood mm[Hg]Shasta Wade PA Work Phone: NO[facility] HospitalJyaleocmgb41-23-4615 11:19-0500Body temperature 97.9 [degF]Vicnent Bundridge AUTOMOBILE BODY CUSTOMIZER.PARKING LOT ATTENDANT AND CASHIER Work Phone: [place] Ywmhys11-09-0716 11:19-0500Diastolic blood mm[Hg]Vincent Bundridge AUTOMOBILE BODY CUSTOMIZER.PARKING LOT ATTENDANT AND CASHIER Work Phone: [place] Mmzbit05-41-1033 11:19-0500Heart rate69 /min Vincent Bundridge AUTOMOBILE BODY CUSTOMIZER.PARKING LOT ATTENDANT AND CASHIER Work Phone: [place] Fohqvg83-54-6759 11:19-0500Respiratory rate 18 /minPhil Campbell Bundridge AUTOMOBILE BODY CUSTOMIZER.PARKING LOT ATTENDANT AND CASHIER Work Phone: [place] Sfdgwe91-15-0686 11:19-1014ZpP8% (BldA) [Mass fraction]94 %Vincent Bundridge AUTOMOBILE BODY CUSTOMIZER.PARKING LOT ATTENDANT AND CASHIER Work Phone: [place] Ulsaaq82-13-8889 11:19-0500Systolic blood hnsbqofi24 mm[Hg]Vincent Bundridge AUTOMOBILE BODY CUSTOMIZER.PARKING LOT ATTENDANT AND CASHIER Work Phone: [place] Rcssqr97-50-8327 10:01-0500Body mass index (BMI) [Ratio]29.27 kg/s4Qmfaur Christy AUTOMOBILE BODY CUSTOMIZER.PARKING LOT ATTENDANT AND CASHIER Work Phone: [facility]03-06-2025 10:01-0500Body temperature 97.59 [degF]Ann-Marie Christy AUTOMOBILE BODY CUSTOMIZER.PARKING LOT ATTENDANT AND CASHIER Work Phone: [facility]03-06-2025 10:01-0500Body iozqpb56.6 kgJaimee Christy AUTOMOBILE BODY CUSTOMIZER.PARKING LOT ATTENDANT AND CASHIER Work Phone: [facility]03-06-2025 10:01-0500Diastolic blood axhyinxr66 mm[Hg]Ann-Marie Christy AUTOMOBILE BODY CUSTOMIZER.PARKING LOT ATTENDANT AND CASHIER Work Phone: [facility]03-06-2025 10:01-0500Heart rate74 /min Ann-Marie Christy AUTOMOBILE BODY CUSTOMIZER.PARKING LOT ATTENDANT AND CASHIER Work Phone: [facility]03-06-2025 10:01-0500Respiratory rate 18 /minJaimee Christy AUTOMOBILE BODY CUSTOMIZER.PARKING LOT ATTENDANT AND CASHIER Work Phone: [facility]03-06-2025 10:01-0366EmU4% (BldA) [Mass fraction]96 %Ann-Marie Christy AUTOMOBILE BODY CUSTOMIZER.PARKING LOT ATTENDANT AND CASHIER Work Phone: [facility]03-06-2025 10:01-0500Systolic blood zzegtabg532 mm[Hg]Ann-Marie Christy AUTOMOBILE BODY CUSTOMIZER.PARKING LOT ATTENDANT AND CASHIER Work Phone: [facility]02-26-2025 08:45-0500Body hhsybq528 cm Isaac Gracia MD Work Phone: [facility] ClinicComment on above:verified by 2 caregivers. no ygllu31-15-1614 08:45-0500Body mass index (BMI) [Ratio]30.83 kg/h5UxvjofIsaac Gracia MD Work Phone: [facility] HospitalXpikkw01-53-3648 08:45-0500Body temperature 98.01 [degF]Isaac Gracia MD Work Phone: [facility] Ejynsa75-32-2755 08:45-0500Body zcdiua71.2 kgIsaac Gracia MD Work Phone: [facility] Euqxvj79-49-9708 08:45-0500Diastolic blood rtpttigd31 mm[Hg]Isaac Gracia MD Work Phone: [facility] Tikvvs80-30-3673 08:45-0500Heart rate74 /min Isaac Gracia MD Work Phone: [facility] HospitalFxmvhg08-47-9094 08:45-0500Respiratory rate 16 /minAdatho Gracia MD Work Phone: [facility] Phkmlx28-02-3801 08:45-2218TyH9% (BldA) [Mass fraction]95 %Isaactho Gracia MD Work Phone: [facility] Trixvd05-22-1806 08:45-0500Systolic blood yudgpzax247 mm[Hg]Isaac Gracia MD Work Phone: [facility] HospitalMvoawp49-62-7839 12:00-0500Body temperature 99.3 [degF]Asya Clements JR Work Phone: 1([phone])[phone]02-24-2025 12:00-0500 Diastolic blood epgiagtw55 mm[Hg]Asya Clements JR Work Phone: 1(299)734-[address] [place], [place] 5084002-24-2025 12:00-0500 Heart rate78 /minAsya Clements JR Work Phone: 1(737)520-[address] [place], [place] 5084002-24-2025 12:00-0500 Respiratory rate18 /minAsya Clements JR Work Phone: 1(981)234-[address] [place], [place] 5084002-24-2025 12:00-0500 SaO2% (BldA) [Mass fraction]99 %Asya Clements JR Work Phone: [phone])[phone]02-24-2025 12:00-0500 Systolic blood bykfoaug750 mm[Hg]Asya Clements JR Work Phone: 1(246)423-78[facility]02-24-2025 08:00-0500 Inhaled oxygen flow rate2 L/minAsya Clements JR Work Phone: [phone])776-09[facility]02-24-2025 06:00-0500 Body rvxvun02 kgIvetteraiden Clements JR Work Phone: 1(102)415-[address] [place], [place] 5084002-19-2025 16:21-0500 Body .26 cmCharles Valone JR Work Phone: 1(831)915-[address] [place], [place] 5084002-19-2025 01:34-0500 Diastolic blood dkytmkir13 mm[Hg]Asya Clements JR Work Phone: 1(455)732-[address] [place], [place] 5084002-19-2025 01:34-0500 Heart rate87 /Adam Clements JR Work Phone: 8(448)655-[address] [place], [place] 5084002-19-2025 01:34-0500 Respiratory rate16 /Adam Clements JR Work Phone: 1(987)174-[address] [place], [place] 5084002-19-2025 01:34-0500 SaO2% (BldA) [Mass fraction]94 %Asya Clements JR Work Phone: 7(873)170-[address] [place], [place] 5084002-19-2025 01:34-0500 Systolic blood bqkqrrog46 mm[Hg]Asya Clements JR Work Phone: 2(957)155-[address] [place], [place] 5084002-18-2025 18:42-0500 Body ubihnc605.26 Shalini Clements JR Work Phone: 7(642)453-[address] [place], [place] 5084002-18-2025 18:42-0500 Body ilsaocghcos63.3 [degF]Asya Clements JR Work Phone: 6(571)821-[address] [place], [place] 5084002-18-2025 18:42-0500 Body xarkrk81.71 kgAsya Clements JR Work Phone: 3(721)875-[address] [place], [place] 5084002-12-2025 14:53-0500 Body pitiqyxmqdz48.59 [degF]Juan C Schreiber MD Work Phone: [facility]02-12-2025 14:53-0500Diastolic blood rmjvsxge39 mm[Hg]Juan C Schreiber MD Work Phone: [facility]02-12-2025 14:53-0500Heart rate79 /min Juan C Schreiber MD Work Phone: [facility]02-12-2025 14:53-0500Respiratory rate 18 /minSgabo Schreiber MD Work Phone: [facility]02-12-2025 14:53-5481JpX7% (BldA) [Mass fraction]96 %Juan C Schreiber MD Work Phone: [facility]02-12-2025 14:53-0500Systolic blood kbwevovw604 mm[Hg]Juan C Schreiber MD Work Phone: [facility]02-12-2025 13:51-0500Body .72 Shalini Clements JR Work Phone: [facility]02-12-2025 13:51-0500 Body nhbpye57.71 kgAsya Clements Work Phone: [facility]02-07-2025 13:13-0500 Body .7 [facility] AUTOMOBILE BODY CUSTOMIZER.PARKING LOT ATTENDANT AND CASHIER Work Phone: K[facility] HospitalLlwobk17-39-6527 13:13-0500Body mass index (BMI) [Ratio]30.91 kg/t6ClsibqmvNov[facility] AUTOMOBILE BODY CUSTOMIZER.PARKING LOT ATTENDANT AND CASHIER Work Phone: CA[facility] HospitalHwylyz88-40-8849 13:13-0500Body temperature 97.7 [degF][facility] AUTOMOBILE BODY CUSTOMIZER.PARKING LOT ATTENDANT AND CASHIER Work Phone: Y[facility] HospitalYuiuew72-54-0493 13:13-0500Body kuvmbk91.2 kgNov[facility] AUTOMOBILE BODY CUSTOMIZER.PARKING LOT ATTENDANT AND CASHIER Work Phone: G[facility] HospitalGcvoov23-03-4987 13:13-0500Diastolic blood bhxubjfr32 mm[Hg][facility] AUTOMOBILE BODY CUSTOMIZER.PARKING LOT ATTENDANT AND CASHIER Work Phone: CA[facility] HospitalUnafoc33-15-9383 13:13-0500Heart rate79 /min [facility] AUTOMOBILE BODY CUSTOMIZER.PARKING LOT ATTENDANT AND CASHIER Work Phone: HAv[facility] HospitalDficka07-26-7661 13:13-0500Respiratory rate 16 /minSan Carlos Apache Tribe Healthcare Corporationrid AUTOMOBILE BODY CUSTOMIZER.PARKING LOT ATTENDANT AND CASHIER Work Phone: MA[facility] HospitalVwrmpw67-49-5019 13:13-9243YzO6% (BldA) [Mass fraction]98 %[facility]centUNC [facility] Chatham AUTOMOBILE BODY CUSTOMIZER.PARKING LOT ATTENDANT AND CASHIER Work Phone: [facility] HospitalDyyyaw56-66-8916 13:13-0500Systolic blood gvpeerop879 mm[Hg]Vincent Peres AUTOMOBILE BODY CUSTOMIZER.PARKING LOT ATTENDANT AND CASHIER Work Phone: [facility] HospitalNpoihw65-88-9371 14:38-0500Body temperature 99.1 [degF]Juan C Schreiber MD Work Phone: [facility]02-05-2025 14:38-0500Diastolic blood lsclnlge59 mm[Hg]Juan C Schreiber MD Work Phone: [facility]02-05-2025 14:38-0500Heart rate83 /min Juan C Schreiber MD Work Phone: [facility]02-05-2025 14:38-0500Respiratory rate 18 /minSgabo Schreiber MD Work Phone: [place] [address]-05-2025 14:38-8988AoN1% (BldA) [Mass fraction]95 %Juan C Schreiber MD Work Phone: [facility]02-05-2025 14:38-0500Systolic blood fifeukys102 mm[Hg]Juan C Schreiber MD Work Phone: [facility]02-04-2025 13:35-0500Body mass index (BMI) [Ratio]30.98 kg/g2Bgseb Delasos DO Work Phone: [facility]02-04-2025 13:35-0500Body temperature 97.81 [degF]Sarabjit Delasos DO Work Phone: [facility]02-04-2025 13:35-0500Body vbafgg25.4 kgLukas Delasos DO Work Phone: [facility]02-04-2025 13:35-0500Diastolic blood uniiynxb31 mm[Hg]Sarabjit Delasos DO Work Phone: [facility]02-04-2025 13:35-0500Heart rate89 /min Sarabjit Crowley DO Work Phone: [facility]02-04-2025 13:35-0500Respiratory rate 18 /minSarabjit Crowley DO Work Phone: [facility]02-04-2025 13:35-1514GfB6% (BldA) [Mass fraction]95 %Sarabjit Crowley DO Work Phone: [facility]02-04-2025 13:35-0500Systolic blood xzuiinqu201 mm[Hg]Sarabjit Crowley DO Work Phone: [facility]02-04-2025 10:32-0500Body lvdxiz343.7 [facility]burghrashmi Sharma MD Work Phone: [phone] HospitalUwmqqf53-58-4984 10:32-0500Body mass index (BMI) [Ratio]30.42 kg/f9LsnhhSarabjit Sharma MD Work Phone: [phone] HospitalTuudrc75-25-3172 10:32-0500Body oqmkdl03.72 kgSarabjit Sharma MD Work Phone: [facility] HospitalMezlfc66-63-6691 09:50-0500Body enlwfu967.7 cmYasmeen Narayan MD Work Phone: [phone]02-03-2025 09:50-0500Body mass index (BMI) [Ratio]30.61 kg/g9UniemzkYasmeen Narayan MD Work Phone: [phone]02-03-2025 09:50-0500Body temperature 97.5 [degF]Yasmeen Narayan MD Work Phone: [phone]02-03-2025 09:50-0500Body .3 kgYasmeen Narayan MD Work Phone: [phone]02-03-2025 09:50-0500Diastolic blood njdyywzp22 mm[Hg]Yasmeen Narayan MD Work Phone: [facility]02-03-2025 09:50-0500Heart rate79 /min Yasmeen Narayan MD Work Phone: [facility]02-03-2025 09:50-0500Respiratory rate 20 /minYasmeen Narayan MD Work Phone: [facility]02-03-2025 09:50-7082BrU2% (BldA) [Mass fraction]97 %Yasmeen Narayan MD Work Phone: [facility]02-03-2025 09:50-0500Systolic blood mqejmskh353 mm[Hg]Yasmeen Narayan MD Work Phone: [facility]12-05-2024 12:53-0500Diastolic blood loicmxjg06 mm[Hg]Kera Lue [facility] [place] 988992-05-2024 12:53-0500Heart rate68 /minKathy Lue [facility] [place] 988992-05-2024 12:53-0500Respiratory rate16 /minKathy Lue [facility] [place] 988992-05-2024 12:53-0500Systolic blood thcryubz389 mm[Hg]Kera Lue [facility] [place] 988991-19-2024 15:45-0500Diastolic blood erxwpdok22 mm[Hg]Asya Clements JR Work Phone: [facility]11-19-2024 15:45-0500 Heart rate76 /minAsya Clements JR Work Phone: [facility]11-19-2024 15:45-0500 Respiratory rate20 /minAsya Clements JR Work Phone: [facility]11-19-2024 15:45-0500 SaO2% (BldA) [Mass fraction]94 %Asya Clements JR Work Phone: 1(780)252-[address] [place], [place] 5084011-19-2024 15:45-0500 Systolic blood odzkrjiv694 mm[Hg]Asya Clements JR Work Phone: 1(646)561-[address] [place], [place] 5084011-19-2024 15:00-0500 Body hsykdadgzqe29.9 [degF]Asya Clements JR Work Phone: 1(094)220-[address] [place], [place] 5084011-19-2024 14:25-0500 Inhaled oxygen flow rate8 L/minAsya Clements JR Work Phone: 1([phone])[address]11-19-2024 11:54-0500 Body uiyxxj139.26 cmCharaiden Clements JR Work Phone: 1(808)[phone]11-19-2024 11:54-0500 Body edafym18 kgAsya Clements JR Work Phone: 1(991)890-[address] [place], [place] 5084011-19-2024 11:45-0500 Body weightAsya Clements JR Work Phone: 1(501)639-[address] [place], [place] 5084011-08-2024 09:43-0500 Diastolic blood fiymuxlv17 mm[Hg]Елена Griffin MD Work Phone: 6(224)327-[address] [place], [place] 5953511-08-2024 09:43-0500 Heart rate68 /minЕлена Griffin MD Work Phone: 9(784)106-[address] [place], [place] 5953511-08-2024 09:43-0500 Systolic blood mm[Hg]Елена Griffin MD Work Phone: 5(721)582-[address] [place], [place] 5953511-08-2024 09:42-0500 Body uvghsl025.3 cmЕлена Griffin MD Work Phone: 7(079)771-[address] [place], [place] 5953511-08-2024 09:42-0500 Body mass index (BMI) [Ratio]31.16 kg/z1HuqensЕлена Griffin MD Work Phone: 1(718)254-[address] [place], [place] 5953511-08-2024 09:42-0500 Body ofevir33.71 kgЕлена Griffin MD Work Phone: [facility]10-29-2024 13:17-0400 Diastolic blood frlmpyyn80 mm[Hg]ANN RAAD [facility]10-29-2024 13:17-0400Mean blood smgpqfpi013 mm[Hg]ANN RAAD [facility]10-29-2024 13:17-0400Systolic blood mm[Hg]ANN RAAD [facility]10-29-2024 13:13-0400Blood Pressure LocationJENNIFER RAAD [facility]10-29-2024 13:13-0400Diastolic blood svuypcjv19 mm[Hg]ANN RAAD [facility]10-29-2024 13:13-0400Heart rate74 /minJENNIFER RAAD [facility]10-29-2024 13:13-0400Respiratory rate18 /minJENNIFER RAAD [facility]10-29-2024 13:13-0400Systolic blood mm[Hg]ANN RAAD [facility]10-28-2024 15:36-0400Body .3 Anupama ONEIL Work Phone: [facility] HospitalPhmojonkpp60-30-0455 15:36-0400Body mass index (BMI) [Ratio]31.9 kg/m2Shasta Wade PA Work Phone: [facility] HospitalOnautsmsds00-67-5523 15:36-0400Body hrejzn73.98 kgShasta Wade PA Work Phone: NO[facility] HospitalAspdijcqpq43-25-4177 15:36-0400Diastolic blood zlwtrguq58 mm[Hg]Shasta Wade PA Work Phone: [facility] HospitalYejhbztiuv13-62-6668 15:36-0400Heart rate81 /min Shasta Wade PA Work Phone: NO[facility] HospitalQkkisdvlbn59-50-4787 15:36-0400Respiratory rate16 /minShasta Wade PA Work Phone: [facility] HospitalTgehwrsotz15-07-5199 15:36-4960RaL2% (BldA) [Mass fraction]92 %Shasta Wade PA Work Phone: NO[facility] HospitalJsdbfsdvkm91-00-7290 15:36-0400Systolic blood hysjizkp716 mm[Hg]Shasta Wade PA Work Phone: [facility] HospitalDmavdfiqnt02-11-1112 10:56-0400Diastolic blood uggogwkv77 mm[Hg]Kera Lue [facility]09-25-2024 10:56-0400Heart rate68 /minKathy Lue [facility]09-25-2024 10:56-0400Respiratory rate16 /minKathy Lue [facility] [place] [address]-25-2024 10:56-0400Systolic blood rpplakgf305 mm[Hg]Kera Lue [facility] [place] [address]-24-2024 12:47-0400Blood Pressure LocationKathy Lue [facility] [place] [address]-24-2024 12:47-0400Diastolic blood xmkkeuiw89 mm[Hg]Kera Lue [facility]09-24-2024 12:47-0400Heart rate68 /minKathy Lue [facility]09-24-2024 12:47-0400Respiratory rate16 /minKathy Lue [facility]09-24-2024 12:47-0400Systolic blood egznwkdb606 mm[Hg]Kera Lue [facility]08-29-2024 13:16-0400Diastolic blood ebavtirw74 mm[Hg]ANN RAAD [facility]08-29-2024 13:16-0400Mean blood hmeiqdqi507 mm[Hg]ANN RAAD [facility]08-29-2024 13:16-0400Systolic blood mqgttika502 mm[Hg]ANN RAAD [facility]08-29-2024 12:51-0400Blood Pressure LocationJENNIFER RAAD [facility]08-29-2024 12:51-0400Diastolic blood fzkveqfb29 mm[Hg]ANN RAAD [facility] [address]29-2024 12:51-0400Heart rate80 /minJENNIFER RAAD [facility] [place] [address]-29-2024 12:51-0400Respiratory rate16 /minJENNHEIDI ROARY [facility]08-29-2024 12:51-0400Systolic blood zdkqsiis729 mm[Hg]ANN FORTE [facility]04-16-2024 11:21-0400Body .26 cmJR Asya Clements Work Phone: [facility]04-16-2024 11:21-0400 Body uhhzud80.52 kgJR sAya Clements Work Phone: [facility]05-10-2023 07:56-0400 Blood Pressure LocationKathy Lue [facility]05-10-2023 07:56-0400Diastolic blood mm[Hg]Kera Lue [facility]05-10-2023 07:56-0400Heart rate62 /minKathy Lue [facility]05-10-2023 07:56-0400Systolic blood fdhoighl765 mm[Hg]Kera Lue [facility]06-29-2022 10:13-0400Blood Pressure LocationKathy Lue [facility] 06-29-2022 10:13-0400Diastolic blood iejwvoqw34 mm[Hg] Kera Lue [facility] 06-29-2022 10:13-0400Heart rate70 /minKathy Lue [facility] 06-29-2022 10:13-0400Respiratory rate16 /minKatyogesh Lue [facility] 06-29-2022 10:13-0400Systolic blood rpiuztxy496 mm[Hg] Kera Lue [facility] 04-26-2022 10:56-0400Body avqnpe420.3 cmShawna Flores MD, PhD Work Phone: [facility]04-26-2022 10:56-0400Body .88 kgShawna Flores MD, PhD Work Phone: [facility]04-26-2022 10:56-0400Diastolic blood tfdwimzk38 mm[Hg]Shawna Flores MD, PhD Work Phone: [facility]04-26-2022 10:56-0400Heart rate64 /min Shawna Flores MD, PhD Work Phone: [facility]04-26-2022 10:56-0400Systolic blood veyiukqd006 mm[Hg]Shawna Flores MD, PhD Work Phone: [facility] Encounters Encounter DateEncounter [facility] ProviderFacilityStart: 05-30-2025 End: [id number] CLEMENTS JRFacility:[facility]: 05-09-2025 End: 13-91-7912ntelhzuyxjSGWCLGKClaudy CLEMENTS JRFacility:[facility]: 04-25-2025 End: 75-90-6637vysopeluplFANPULSClaudy CLEMENTS JRFacility:[facility]: 04-18-2025 End: 23-40-2940dgoxecxfleWWHPQZE LEWIS VALONE JRFacility:[facility]: 04-18-2025 End: 47-22-2614znwufnnzwfTHNBJIL LEWIS VALONE JRFacility:[facility]: 04-18-2025 End: 72-54-9905tlapueopahUANIWXBHenry CLEMENTS JRFacility:[facility]: 04-14-2025 End: 85-60-4534ttehudfquhSDMTVZL JIMMY CLEMENTS [facility]RFacility:[facility]: 04-12-2025 End: 66-92-5274ndcncxxdysVGDQZXP LEWIS VALONE JRFacility:[facility]: 92-30-5139tvwctiyvkqPPLPDNJ LEWIS VALONE JRFacility:[facility]: 03-15-2025 End: 20-72-7938Uptbhiz encounter procedureG Elias Smart MD Work Phone: Radiation OncologyComment on above: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)Start: 03-15-2025 End: 21-29-0643Bnbuyi outpatient visit 25 minutesAdars Samia FLOYD Work Phone: Hematology/OncologyComment on above: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) (Primary Dx); Other fatigueStart: 03-15-2025 End: 71-42-7903ybgkbsyhqhCVPFFVO JIMMY CLEMENTS [facility]: 03-14-2025 End: 01-61-6414Qqvrhnj encounter procedureShawna Flores MD, PhD Work Phone: EndocrinologyComment on above:Multiple thyroid nodules (Primary Dx); Acquired hypothyroidismStart: 03-14-2025 End: 76-77-1757dlhuqifelaJNTAXNQ JIMMY CLEMENTS JRRosacility:[facility]: 02-28-2025 End: 38-37-0051Yxbtjpn encounter procedureVincent Estrada APRN.CNP Work Phone: palliative MedicineComment on above:Palliative care by specialist (Primary Dx); Metastatic cancer to bone (HCC); Neoplasm related pain; Chemotherapy-induced nausea; Constipation due to opioid therapy; Lung mass; Chronic obstructive pulmonary disease, unspecified COPD type (HCC); SOB (shortness of breath); Secondary malignant neoplasm of unspecified site (HCC)Start: 02-28-2025 End: 41-18-1603bayyolemtnSYSKFHBClaudy Ruvalcabacility:[facility]: 02-24-2025 End: 17-30-6444xzaxbyzxyeXEMENDJClaudy CLEMENTS JRFacility:[facility]: 02-21-2025 End: 39-01-0330Ufcjuwd encounter procedureG Elias Smart MD Work Phone: Radiation OncologyStart: 02-21-2025 End: 81-66-2463Wfrqpumkm Oncology NoteG Elias Smart MD Work Phone: Radiation OncologyComment on above:Completion Note Start: 02-21-2025 End: 04-26-0467vsqsgocqgdVXLQFKWClaudy CLEMENTS JRFacility:[facility]: 02-20-2025 End: 22-90-7675Fhqstnt encounter procedureG Elias Smart MD Work Phone: Radiation OncologyComment on above: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)Start: 02-20-2025 End: 98-59-0440jyazwvsmuaJYTWSQCClaudy Ruvalcabacility:[facility]: 02-17-2025 End: 13-38-7958qqhnhshjkkUYOKACXClaudy Ruvalcabacility:[facility]: 02-16-2025 End: 83-39-0942Lentsefld encounterGhislaine Thakur RN Work Phone: Hematology/OncologyComment on above:Care Coordination (C1D1 treatment follow up call)Start: 02-16-2025 End: 01-58-9102bgcnfkyqbcXJBZUUNClaudy Ruvalcabacility:[facility]: 02-15-2025 End: 71-82-7237fdkjuwvmlrCvvhx M. 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)Start: 02-13-2025 End: 17-75-5458zhfdkvynzfYQYMLJAHenry CLEMENTS [facility]RFacility:[facility] HospitalStart: 02-10-2025 End: 53-81-3244Fqigtbb encounter procedureJessica [facility] Work Phone: [facility] PharmacyStart: 02-10-2025 End: 61-08-5952Xgdlgodri encounterBlanchard Valley [facility] Hospitalailyn [facility] Work Phone: Hematology/OncologyComment on above:Medication Update Start: 02-10-2025 End: 75-32-2115vnmvsouhljSsetzgb [facility] Work Phone: [facility] PharmacyStart: 02-09-2025 End: 34-08-5162rufnxpbgduSXAEVTJHenry CLEMENTS JRFacility:[facility]: 02-08-2025 End: 22-28-0675Qixuxpn encounter procedureG Elias Smart MD Work Phone: Radiation OncologyComment on above: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)Start: 02-08-2025 End: 26-23-3685lnhmilikhzXSMXIWJHenry CLEMENTS JRFacility:[facility] HospitalStart: 02-08-2025 End: 38-51-4940Svnnxndkf encounterLashaeailyn JabierUniversity Hospitals Port[facility] Work Phone: [facility] PharmacyComment on above: Drug/Drug Interaction (Lumakras and primidone)Start: 02-06-2025 End: 57-29-5048jsstoxfqomQlwquapClaudy Clements JR Work Phone: [facility] Work Phone: Start: 02-06-2025 End: 17-56-0203Ppiueap encounter procedureSsophia Foote QQIQ-JTY-H-FPG [facility] [place] Work Phone: Start: 91-68-2586Gok-patient / Non-visitTifchaseaileen [facility] Neurology Work Phone: Start: 02-03-2025 End: 00-28-9396BploetLkhng Schmitt [facility] Work Phone: HOSPITAL PHARMACY HB-3Comment on above:Refill Request Start: 02-02-2025 End: 98-33-0176Ohcruikbu Oncology NoteG Elias Smart MD Work Phone: Radiation OncologyComment on above:Simulation Note Treatment PlanningStart: 02-02-2025 End: 93-80-0640Extodypxn encounterPatricia Gregory RN Work Phone: Hematology/OncologyComment on above:Care Coordination (Future Appointment)Start: 02-02-2025 End: 49-83-9653Pmzabwa evaluation of patient and reportPatricia Gregory RN Work Phone: Hematology/OncologyComment on above:Encounter for education (Primary Dx)Start: 02-02-2025 End: 17-25-3911Otuodku encounter procedureG Elias Smart MD Work Phone: Radiation OncologyComment on above: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)Start: 02-02-2025 End: 62-01-2534Ilymho outpatient visit 25 minutesG Elias Smart MD Work Phone: Radiation OncologyComment on above: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 Start: 01-31-2025 End: 13-08-9048X-mail encounter from Bobbi Cordon [facility] Work Phone: [facility] HB-3Start: 01-31-2025 End: 31-32-3238Bjrnrkjsr encounterRejudy Gregory RN Work Phone: Hematology/OncologyComment on above:Care Coordination (Medication Question)Start: 01-26-2025 End: 33-41-6354Lxxkldqwo encounterG Elias Smart MD Work Phone: Radiation OncologyComment on above:Future Appointment Medication Authorization (Lumakras)Start: 01-26-2025 End: 10-43-7391Dgfiyr outpatient visit 25 minutesAdarsnoah Gracia MD Work Phone: Hematology/OncologyComment on above: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) (Primary Dx); Other fatigueStart: 01-26-2025 End: 27-06-0180vpbouhywqsPRILJTM LEWIS VALONE JRFacility:[facility]: 01-25-2025 End: 31-26-1972Sqerhev encounter Milagro Balbuena MD Work Phone: Facial Plastics/ReconstructionComment on above:Facial nerve motor disorder (Primary Dx); Clonic hemifacial spasm, unspecified laterality; Blepharospasm; Facial paralysisStart: 01-25-2025 End: 39-62-2607olgmutzpffTewqx M. LueFacility:EU [place]vueStart: 01-24-2025 End: 75-24-1288Yxuslvukp encounterAdatho Gracia MD Work Phone: Hematology/OncologyComment on above:Lab OrdersStart: 01-23-2025 End: 16-52-0487Pqwhwsj evaluation of patient and reportTifcristiana Thakur RN Work Phone: Hematology/OncologyComment on above:Metastatic cancer to bone (HCC) (Primary Dx)Start: 01-23-2025 End: 84-89-2160ftxpxiqprkDBXZFQQ LEWIS VALONE JRFacility:[facility]: 19-67-2474legqbcvpmpRBUPACU JIMMY CLEMENTS [facility]: 01-18-2025 End: 87-83-0540Uqmoqfeoga hospital visit by physicianArrival Time Radiology Work Phone: Radiology Pet CTComment on above:Metastatic cancer to bone (HCC) [C79.51]Start: 01-05-2025 End: 05-22-5270Qhwupdfum encounterUlisses Baum PA-C Work Phone: Hematology/OncologyStart: 01-04-2025 End: 18-32-3447Cavukx outpatient visit 25 minutesAdars Samia FLOYD Work Phone: Hematology/OncologyComment on above: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) (Primary Dx); Metastatic cancer to bone (HCC)Start: 01-04-2025 End: 40-35-4739trvvweixwjUkohr [address] [place] Work Phone: Hematology/OncologyComment on above:Malignant neoplasm of overlapping sites of right lung (HCC) (Primary Dx)Start: 12-26-2024 End: 37-16-0825bqgtnhqmamUpeuuya Fritz MD Work Phone: Facial Plastics/ReconstructionStart: 12-26-2024 End: 91-29-1386Uhthxni encounter procedureElizabeth Balbuena MD Work Phone: Facial Plastics/ReconstructionComment on above:Botox Start: 12-19-2024 End: 18-85-2384Gnmcrxbfo encounterGhislaine Thakur RN Work Phone: Hematology/OncologyComment on above:Care Coordination (Thyroid nodules)Start: 12-14-2024 End: 21-68-7739Dljvqslxl encounterMinflako Pooja Isrrael GONZALEZ Work Phone: Cancer Appts MCComment on above:Radiology USStart: 12-14-2024 End: 29-50-5993Kkyblq outpatient visit 40 minutesMinflako Patton Isrrael GONZALEZ Work Phone: Hematology/OncologyComment on above:Malignant neoplasm of overlapping sites of right lung (HCC) (Primary Dx); Metastatic cancer to bone (HCC); Malaise and fatigue; Pain of right upper arm; Swelling of armStart: 12-14-2024 End: 01-84-7782ckmxmzfbvkQznwl [address] [place] Work Phone: Hematology/OncologyComment on above:Malignant neoplasm of overlapping sites of right lung (HCC) (Primary Dx)Start: 11-23-2024 End: 26-21-0164Facgnah encounter Cm Estrada APRN.CNP Work Phone: palliative MedicineComment on above:Palliative care by specialist (Primary Dx); Constipation due to opioid therapy; Neoplasm related pain; Metastatic cancer to bone (HCC); Lung massStart: 11-23-2024 End: 25-77-8880Kklpfw outpatient visit 25 minutesAdarsh Samia FLOYD Work Phone: Hematology/OncologyComment on above:Malignant neoplasm of overlapping sites of right lung (HCC) (Primary Dx)Start: 11-23-2024 End: 61-96-3865plftlfmhtoUjhff [address] [place] Work Phone: Hematology/OncologyComment on above:Malignant neoplasm of overlapping sites of right lung (HCC) (Primary Dx)Start: 11-22-2024 End: 17-03-8926Krzngp Alcides ONEIL Work Phone: aNA GUSTABOUEStart: 11-22-2024 End: 16-21-9878Alpklishahzad ONEIL Work Phone: aNA SHARMAINEEVUEStart: 11-22-2024 End: 70-86-0773Nzeozn outpatient visit 25 minutesShasta ONEIL Work Phone: ana BELLEVUEComment on above:AVM (arteriovenous malformation) (Primary Dx); Migraine without aura and without status migrainosus, not intractable (CMS/HCC); Trigeminal neuralgia (CMS/HCC); History of stroke; Anxiety disorder, unspecified type; TremorStart: 11-22-2024 End: 79-91-5403gbavuhdotbFKSR HILLNot AvailableStart: 11-16-2024 End: 90-27-6174Rebtmbofm encounterAdatho Gracia MD Work Phone: Hematology/OncologyComment on above:Lab OrdersStart: 85-34-5323gjstmadzvnOCUMPKF LEWIS VALONE JRFacility:[facility] Start: 11-15-2024 End: 42-65-5520Sjafblvtyr hospital visit by physicianArrival Time Radiology Work Phone: Radiology Pet CTComment on above:Metastatic cancer to bone (HCC) [C79.51]Start: 11-08-2024 End: 84-87-0075Wsazvro encounter Meghan Clements JR Work Phone: [facility]-Ultrasound Main [place] Work Phone: Start: 11-08-2024 End: 80-28-2775dzmzmfzhcuTefmcylClaudy Clements JR Work Phone: [facility] Work Phone: Start: 11-02-2024 End: 58-51-6695Wwgyamnqy encounterAdatho Gracia MD Work Phone: radiation OncologyComment on above:OrdersStart: 11-02-2024 End: 44-32-0091Dbmlmd outpatient visit 25 minutesAdatho Gracia MD Work Phone: Hematology/OncologyComment on above:Metastatic cancer to bone (HCC) (Primary Dx); Malignant neoplasm of overlapping sites of right lung (HCC)Start: 11-02-2024 End: 36-62-4206jdewzszznhGdllj [address] [place] Work Phone: Hematology/OncologyComment on above:Malignant neoplasm of overlapping sites of right lung (HCC) (Primary Dx)Start: 10-12-2024 End: 06-53-8908Ghwvug outpatient visit 15 Manolo Gomez APRN.CNP Work Phone: Hematology/OncologyComment on above:Metastatic cancer to bone (HCC) (Primary Dx); Malignant neoplasm of overlapping sites of right lung (HCC); Encounter for antineoplastic chemotherapy; Encounter for immunotherapyStart: 10-12-2024 End: 63-54-3584Djdsdj WorkLori Ravinder WHematology/OncologyComment on above: Malignant neoplasm of overlapping sites of right lung (HCC) (Primary Dx)Start: 10-10-2024 End: 10-96-4860Ldledr outpatient visit 25 minutesLizkonrad Mauro ONEIL Work Phone: aNA BELLEVUEComment on above:AVM (arteriovenous malformation) (Primary Dx); Hallucination, hypnopompic; History of stroke; Migraine without aura and without status migrainosus, not intractable (CMS/HCC); Trigeminal neuralgia (CMS/HCC); Anxiety disorder, unspecified type; TremorStart: 10-10-2024 End: 60-31-5416ajfzfshcvyJBQQ HILLNot AvailableStart: 09-30-2024 End: 65-66-9668Nistwbcdo encounterKimbsujata Estrada APRN.CNP Work Phone: palliative MedicineComment on above:Patient Update Start: 09-29-2024 End: 95-64-2375Jwyemu WorkLori Ravinder PRESLEYematology/OncologyStart: 09-28-2024 End: 93-28-4971gsepzsmlmwMwiue M. LueFacility:EU BellevueStart: 09-27-2024 End: 09-87-2861Uspunpogi encounterAnn-Marie Gomez APRN.CNP Work Phone: Hematology/OncologyComment on above:Lab OrdersStart: 2024 End: 95-60-7756abazmxiecxGPHGLKB LEWIS VALONE JRFacility:[facility]: 2024 End: 10-72-7389Lzepumd encounter Cm Estrada APRN.CNP Work Phone: palliative MedicineComment on above:Palliative care by specialist (Primary Dx); Metastatic cancer to bone (HCC); Constipation due to opioid therapy; Lung mass; Neoplasm related pain; Anorexia; Chronic obstructive pulmonary disease, unspecified COPD type (HCC); SOB (shortness of breath)Start: 09-22-2024 End: 66-66-2645Aaxzwi outpatient visit 25 minutesJatamara Gomez APRN.CNP Work Phone: Hematology/OncologyComment on above:Lung mass (Primary Dx); Metastatic cancer to bone (HCC); Malignant neoplasm of overlapping sites of right lung (HCC); Chemotherapy induced diarrhea; Chemotherapy-induced fatigueStart: 09-22-2024 End: 04-10-3138txgepeaujgAAIRPQH LEWIS VALONE JRFacility:[facility]: 09-21-2024 End: 15-40-5737Rbrgpeptu encounterAnn-Marie Gomez APRN.CNP Work Phone: Cancer Appts MCComment on above:No ShowStart: 09-19-2024 End: 53-39-8275Bstpooqvw encounterGhislaine Thakur RN Work Phone: Hematology/OncologyComment on above:Care Coordination (C1D1 treatment follow up call)Care Coordination (Rash, shortness of breath) Start: 09-14-2024 End: 43-98-7748Cuikqn outpatient visit 25 minutesAdarsh Samia FLOYD Work Phone: Hematology/OncologyComment on above:Lung mass (Primary Dx); Metastatic cancer to bone (HCC)Start: 09-14-2024 End: 12-52-1816wdmmkfdvgcBcagl [address] [place] Work Phone: Hematology/OncologyComment on above:Malignant neoplasm of overlapping sites of right lung (HCC) (Primary Dx)Start: 09-13-2024 End: 20-28-0476Tgqpxzwba encounterTifcristiana Thakur RN Work Phone: Hematology/OncologyComment on above:Care Coordination (Hospital d/c follow up call)Start: 85-75-0146Hqw-patient / Non-visitCharaiden Clements JR Work Phone: [facility] Infect Dis Work Phone: Start: 65-18-5418Flz-patient / Non-visitCharaiden Clements JR Work Phone: [facility] Rehab & Spine Work Phone: Start: 09-07-2024 End: 70-33-5050Dfsuhejstw and management of inpatientCharaiden Clements JR Work Phone: [facility] [place] [facility] Work Phone: Start: 09-06-2024 End: 60-00-5929Allxixvxj encounterSenmanuel Bryson RNMobile ServicesComment on above:Care CoordinationCare Coordination (Clinical update)Start: 09-05-2024 End: 32-78-1677Vxhuqminc encounterFinancial Navigator Ian Work Phone: Hematology/OncologyComment on [...] feel free to stop in or call [phone] for anyquestions you may have. I )Start: 09-04-2024 End: 32-78-5664Mmbgufwlh encounterArmando Veras MD Work Phone: Hematology/OncologyStart: 09-01-2024 End: 08-85-1303Ffmyhlm encounter procedureCharaiden Clements JR Work Phone: [facility]-MRI Main [place] Work Phone: Start: 09-01-2024 End: 96-90-2344fuqyzzqxddBjkqvveClaudy Clements JR Work Phone: [facility] Work Phone: Start: 08-31-2024 End: 47-49-9888wcibgtjtoaHcexxbjir L Mitchell RNMobile ServicesComment on above: Palliative Medicine Introduction and Contact NumbersStart: 08-31-2024 End: 44-17-4397G-mail encounter from Radha Miles ServicesStart: 08-31-2024 End: 89-77-5332Xmwlita encounter procedureSgabo Schreiber MD Work Phone: Radiation OncologyComment on above: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)Start: 08-31-2024 End: 38-52-6791Avrkcvsdf Oncology NoteSgabo Schreiber MD Work Phone: Radiation OncologyComment on above:Completion Note Start: 08-31-2024 End: 56-21-4618Lmurhzkmf encounterSenmanuel Starkbilkonrad ServicesComment on above:Medication ProblemStart: 08-30-2024 End: 95-46-0579lbjitxkvvhGDTCUQVClaudy CLEMENTS JRFacility:[facility]: 08-30-2024 End: 79-69-6778Rjvpiok evaluation of patient and reportTifcristiana Thakur RN Work Phone: Hematology/OncologyComment on above:Malignant neoplasm of overlapping sites of right lung (HCC) (Primary Dx)Start: 08-30-2024 End: 95-56-4071Rathnevyw encounterTifcristiana Thakur RN Work Phone: Hematology/OncologyComment on above:Care Coordination (pain)Care Coordination (Treatment prep)Start: 08-29-2024 End: 26-37-6132bqppjftkbsIMDSCRTClaudy CLEMENTS JRFacility:[facility]: 08-27-2024 End: 26-15-4856Ycdujy Viktor Hernández [facility] Work Phone: Hematology/OncologyStart: 08-26-2024 End: 27-19-6602Dssuat outpatient visit 40 minutesAdarsh Samia FLOYD Work Phone: Hematology/OncologyComment on above:Malignant neoplasm of overlapping sites of right lung (HCC); Anxiety disorder, unspecified typeStart: 08-26-2024 End: 65-92-1902Hkruafg encounter procedureVincent Estrada APRN.CNP Work Phone: palliative MedicineComment on above:Palliative care by specialist (Primary Dx); Lung mass; Metastatic cancer to bone (HCC); Neoplasm related pain; Constipation due to opioid therapy; AnorexiaStart: 08-26-2024 End: 96-62-2260oibuaimtgsCNKNOIK LEWIS VALONE JRFacility:[facility]: 08-25-2024 End: 39-96-0020xbyhkzltbfSOTMJWBHenry Ruvalcabacility:[facility]: 08-24-2024 End: 34-82-9980safbihaqwxPjshkf E Graves RNRadiation OncologyComment on above: Patient EducationStart: 08-24-2024 End: 63-31-0346Jjutcrx encounter procedureSgabo Schreiber MD Work Phone: Radiation OncologyComment on above: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); 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)Start: 08-24-2024 End: 55-40-2241Myivftnrd Oncology NoteSgabo Schreiber MD Work Phone: Radiation OncologyComment on above:Simulation Note Treatment PlanningStart: 08-24-2024 End: 05-29-3309Ocqosxjag encounterSgabo Schreiber MD Work Phone: Radiation OncologyComment on above:AppointmentStart: 08-23-2024 End: 79-94-2070Ojfimwo encounter procedureSarabjit Crowley DO Work Phone: Hematology/OncologyStart: 08-23-2024 End: 19-02-7232bwrlnunwdnYpopi Delasos DO Work Phone: Hematology/OncologyComment on above:Malignant neoplasm of overlapping sites of right lung (HCC) (Primary Dx)Start: 08-23-2024 End: 58-04-2000Bgbeja outpatient visit 25 minutesSarabjit Sharma MD Work Phone: OrthopaedicsComment on above:Metastatic cancer to bone (HCC) (Primary Dx); Lytic bone lesions on xray; Lung massStart: 08-22-2024 End: 01-84-4842ubdrvhzkvoZAZTIMXHenry CLEMENTS JRFacility:[facility]: 08-22-2024 End: 31-72-6454Sdoitay encounter procedureYasmeen Narayan MD Work Phone: Radiation OncologyComment on above: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); 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)Start: 08-19-2024 End: 96-82-9906xrvlnkdfjaBgizgdTristan Barclay PA-C Work Phone: OrthopaedicsComment on above:Metastatic cancer to bone (HCC) (Primary Dx); Lung mass; Lytic bone lesions on xrayStart: 08-19-2024 End: 49-01-0523Yxpictqiofwx consultation with Rupert Barclay PA-C Work Phone: OrthopaedicsStart: 08-11-2024 End: 32-58-4977ZidytsBwzome L Mareth PA-C Work Phone: OrthopaedicsComment on above:Refill RequestStart: 08-10-2024 End: 65-64-2598lvarfbwawbCAJJIQZHenry CLEMENTS JRFacility:[facility]: 08-09-2024 End: 41-34-1621Gqcvjzp encounter procedureAsya Clements JR Work Phone: [facility]-Ultrasound Main [place] Work Phone: Start: 08-09-2024 End: 06-06-3024deksnoptwlCzcdwzw L Starr MUNROE Work Phone: [facility] Work Phone: Start: 08-08-2024 End: 13-20-5226Wrsxmoc encounter procedureAsya Starr MUNROE Work Phone: [facility]-Nuc Med Main [place] Work Phone: Start: 08-08-2024 End: 40-33-8204foaqadtpwlCrpsncw L Starr MUNROE Work Phone: [facility] Work Phone: Start: 07-29-2024 End: 68-54-9917huvazyeheuYJNWHQHHenry CLEMENTS JRFacility:[facility]: 07-29-2024 End: 72-91-3572Tmfzlgcov encounterDarian Barclay PA-C Work Phone: OrthopaedicsComment on above:Biopsy Request; Biopsy RequestStart: 07-29-2024 End: 66-87-2676Gsuhdeidex hospital visit by physicianOswaldo Main C70HmewnxculXbudhdg on above:Pain in right hip [M25.551]Start: 07-29-2024 End: 53-25-5826qkpwruciglROCSLGHHenry CLEMENTS JRFacility:[facility]: 07-29-2024 End: 38-18-3378brsaqfaopiXWPHXCLHenry CLEMENTS JRFacility:[facility]: 07-29-2024 End: 11-93-2764Gikvlkx encounter procedureDarian Barclay PA-C Work Phone: OrthopaedicsComment on above:Pain in right hip (Primary Dx); Lytic bone lesions on xray; Thyroid nodule; Thyroid nodule greater than or equal to 1 cm in diameter incidentally noted on imaging studyStart: 07-17-2024 End: 13-31-2376lelljvbbziAwohvfaAdia Jacobson MD Work Phone: OrthopaedicsStart: 07-17-2024 End: 57-32-1583Xgofung encounter Tanika Jacobson MD Work Phone: OrthopaedicsComment on above:Referral appointment Start: 07-07-2024 End: 32-02-1601Itoott outpatient new 45 minutesPaulina Jacobson MD Work Phone: OrthopaedicsComment on above:Chronic right shoulder pain (Primary Dx); Tendinopathy of right rotator cuffStart: 07-07-2024 End: 89-34-5755Pmmqsuefkx hospital visit by physicianOswaldo Butler Work Phone: RadiologyComment on above:Right shoulder pain, unspecified chronicity [M25.511]Start: 07-07-2024 End: 56-62-6609ebzulkuckyMdvp Chuck RT(R)RadiologyComment on above:Radiology XRStart: 07-07-2024 End: 42-44-2621Nkafbvv encounter procedureSara Chuck RT(R)RadiologyStart: 07-06-2024 End: 82-87-7986Tggqtd OnlyPaulina Jacobson MD Work Phone: OrthopaedicsComment on above:Right shoulder pain, unspecified chronicity (Primary Dx)Pain (Primary Dx)appointment 07/07/24Start: 06-23-2024 End: 36-14-7928uekcarfyzoSvcyl M. LueFacility:[place]Start: 06-23-2024 End: 49-07-4560Cxdakqq encounter Kim Reid [facility] Start: 06-07-2024 End: 74-14-3818Xablmhgaz to same day surgery Natalie Clements JR Work Phone: [facility]Start: 06-07-2024 End: 49-17-6960nqobpzghncZbjkglz L Valone JR Work Phone: [facility] Work Phone: Start: 06-07-2024 End: 99-99-6902itgtuubfnhEznze M. Nikolayacility:CD:[id number]: 05-31-2024 End: 09-07-0355Xyqrsyd encounter procedureAsya Clements JR Work Phone: [facility] Work Phone: Start: 05-31-2024 End: 86-66-7100tygxitbofySfmnygf L Valone JR Work Phone: [facility] Work Phone: Start: 21-43-7371Kndbbhnmy for preprocedural laboratory examinationKera Zavaleta [facility] Physician GroupStart: 05-27-2024 End: 01-72-7895Xcefxh consultation new/estab patient 61 Zuleyka Griffin MD Work Phone: [facility] CenterComment on above:Preoperative cardiovascular examination; Mixed hyperlipidemia; Acquired hypothyroidism; Tremor; BMI 31.0-31.9,adult; Former smokerStart: 05-27-2024 End: 63-97-1750Xjsssza encounter statusЕлена Griffin MD Work Phone: [facility]Start: 05-27-2024 End: 14-61-9694ihkosnevutWXEYNSFulton County Medical Center AmbulatoryStart: 05-27-2024 End: 00-03-7610Nlknmwkas for preprocedural cardiovascular examinationGEFulton County Medical Center AmbulatoryStart: 05-17-2024 End: 60-60-9085ybbxlifkhbOSBZQMXF E PERRYFacility:EU [place]vueStart: 05-17-2024 End: 40-14-5512Cjpqphi encounter procedureJENNIFER E RAAD [facility] [place] start: 05-16-2024 End: 66-20-2927Ljaaxm outpatient visit 15 minutesShasta Muaro ONEIL Work Phone: noms [facility] ROUTEComment on above:AVM (arteriovenous malformation) (Primary Dx); Hallucination, hypnopompic; History of stroke; Migraine without aura and without status migrainosus, not intractable (CMS/HCC); Trigeminal neuralgia (CMS/HCC); Anxiety disorder, unspecified typeStart: 05-16-2024 End: 05-31-5745kfieviurxlQIFW HILLNot AvailableStart: 05-16-2024 End: 38-98-1404Hvuwcn Alcides ONEIL Work Phone: n[facility] R[facility]TEStart: 05-16-2024 End: 64-54-0513Vxqtdp Alcides ONEIL Work Phone: noms [facility] R[address]TEStart: 05-11-2024 End: 84-81-5566bqumstjiotIfbez M. LueFacility:EU [place]kyStart: 05-11-2024 End: 29-46-2018Awn-SiteKera Reid [facility] Start: 69-19-6294Xue-patient / Non-visitCharles Starr Work Phone: [facility] Out[facility] Work Phone: Start: 04-13-2024 End: 50-66-2145ajdhuzcmqiFjejh M. LueFacility:EU [place]vueStart: 04-13-2024 End: 90-92-6948Ipsjxsf encounter procedureKera Reid [facility] start: 04-08-2024 End: 23-66-8013iooeniwtvpVooie M. LueFacility:EU [place]kyStart: 04-08-2024 End: 06-66-9235Eubwiqi encounter procedureKera Reid [facility] [place] Start: 70-93-4116dgimxflnzgOotbz M. LueFacility:EU [place]vueStart: 03-30-2024 End: 80-58-8220Tcyalmz encounter Milagro Balbuena MD Work Phone: Facial Plastics/ReconstructionComment on above:Facial paralysis (Primary Dx); Facial nerve motor disorderStart: 03-17-2024 End: 59-19-0688prcobaazsqDSRVULQH E PERRYFacility:EU [place]vueStart: 03-17-2024 End: 59-49-3105Qwjsfge encounter procedureJENNIFER E RAAD [facility] Jorge start: 02-25-2024 End: 36-54-1765jekbrfabgsNUMU MAURONot AvailableStart: 02-02-2024 End: 24-13-2346zhocixnlkkDXGV MAURONot AvailableStart: 01-28-2024 End: 03-62-2328rblauwtgbwNCWTJIX A FELTERNot AvailableStart: 01-11-2024 End: 53-62-3947boflbofkgpDVBYNOEJ ANTHONYBESTENNot AvailableStart: 12-28-2023 End: 42-39-6795enjvyfkyyaYMZT HILLNot AvailableStart: 12-10-2023 End: 64-19-7608qggwuqfzxnGYMO HILLNot AvailableStart: 11-03-2023 End: 91-73-6668uvrpiwhujiUJ Charles L Valone Work Phone: [facility] Work Phone: Start: 11-03-2023 End: 17-14-2880Awjohru encounter procedureJR Asya Clements Work Phone: [facility] [place] Work Phone: Start: 08-24-2023 End: 30-30-1874uarrmyyggxJI Asya Clements Work Phone: [facility] Work Phone: Start: 08-24-2023 End: 28-31-1631Uhvkzcn encounter procedureJSusie Asya Clements Work Phone: [facility] [place] Work Phone: Start: 06-24-2023 End: 20-11-3434Udsemvu encounter procedureKera Reid [facility] start: 04-10-2023 End: 60-49-7387Ukvgaoj encounter procedureAdina Rosales MD Work Phone: otolaryngologyComment on above:Facial paralysis (Primary Dx)Start: 11-26-2022 End: 39-40-6076Jizkrqm encounter procedureKera Reid [facility] start: 11-12-2022 End: 01-07-9741zzmahhpnkvXW ARMANDO HOLLINGSWORTHFacility:F7Rtvgl: 05-96-9540oymtlbvclz Elizabeth Balbuena MD Work Phone: rJESUS CAMILO FHCStart: 46-85-9521Laxieww encounter Milagro Balbuena MD Work Phone: Facial Plastics/ReconstructionComment on above:Botox AppointmentStart: 07-23-2022 End: 09-46-5128Pctgbdu encounter Kim Reid [facility] start: 07-08-2022 End: 21-44-3751opxbkwcywqYPEPG M LUE .Facility:V0Mcxtz: 06-05-2022 End: 99-87-6647wsxkajfxekPQ ASYA VALONEFacility:F6Swekt: 05-16-2022 End: 89-59-9391Pgtnjxa encounter procedureElizabeth Balbuena MD Work Phone: Facial Plastics/ReconstructionComment on above:Facial nerve motor disorder (Primary Dx)Start: 02-27-2022 End: 39-11-5508axdjxjlkulFZYEJGTG CULLENFacility:Q4Xlmqc: 45-24-3888rgbhfadqhwEB ASYA VALONEFacility:A0Hvsag: 01-15-2022 End: 27-90-3494Stcuhbq encounter procedureKera Reid [facility] start: 12-25-2021 End: 32-98-1578cgkjyqqofiDOUAV Rafiq HIGHLANDERFacility:E5Qtprk: 12-13-2021 End: 90-70-6027Msmqmol encounter procedureElizabeth Balbuena MD Work Phone: Facial Plastics/ReconstructionComment on above:Facial nerve spasm (Primary Dx); Facial nerve motor disorderStart: 89-34-6038Yeupcmhae encounterShawna Flores MD, PhD Work Phone: EndocrinologyComment on above:ResultsStart: 11-12-2021 End: 83-49-2977Xybuqri encounter procedureShawna Flores MD, PhD Work Phone: EndocrinologyComment on above:Multiple thyroid nodules (Primary Dx); Obesity, Class I, BMI 30-34.9; Vasomotor symptoms due to menopauseStart: 11-23-2020 End: 47-51-0566Ikdnnra encounter Meghan Clements Work Phone: [phone]-Ipnefv for Breast Care Procedures DateProcedureProcedure DetailPerforming ClinicianStart: 85-10-6517Rwuvtn-up visitFollow Roxie WHITEHEADEPUREDDYStart: 36-78-6169TSW of Ad Clements JR Work Phone: Start: 57-61-0455Xra imaging ct attenuation skull base mid-thighIsaac Gracia MD Work Phone: start: 65-63-1511Xyl imaging ct attenuation skull base mid-thighAdatho Gracia MD Work Phone: start: 61-32-0007Qbjy bld gluc mntr dev cleared fda spec home useCcf ProviderStart: 78-20-2154Txpcty scan of lower limb veinsCharaiden Clements JR Work Phone: Start: 39-47-0151Fsz seq analys tani org/hemtolmphoid willem 51/> genAdatho Gracia MD Work Phone: start: 55-04-9941Xcgqsvum identified in Blood by CultureAsya Clements JR Work Phone: Start: 53-97-6664Gybpo cultureAsya Tranbrandy Work Phone: Start: 38-92-2136Vadecphbokl Panel (PCR)Asya Clements JR Work Phone: Start: 43-67-1496Wubaalfq screenCharaiden TranoneComment on above:Order Comment: Comment add Comment addResult Comment: PERFORMED BY: [place] [address] [place] [address] PATHOLOGIST RESERVATIONS SALES AGENT PETER COFFEY M.D.Start: 69-82-4064Pfxoeskv tomography of abdomen and pelvis with contrastAsya Tranbrandy Work Phone: Start: 55-50-7587VI of thorax with contrastIvetteraiden Clements JR Work Phone: Start: 64-21-2861Cwofjibs identified in Blood by CultureAsya Clements JR Work Phone: Start: 55-80-2765Ptgis nucleic acid assayIvettemanny Clements JR Work Phone: Start: 17-04-0635TDT of headCharaiden Jeannabrandy MUNROE Work Phone: Start: 76-12-6484Dme seq analys tani org/hemtolmphoid willem 51/> genLukas Delasos DO Work Phone: Start: 98-68-5596VG scan of thyroidAsya Clements JR Work Phone: Start: 25-37-6310JM bone scan whole bodyAsya Clements JR Work Phone: Start: 06-01-0229Polazimq tomography of abdomen and pelvis with contrastAsya Clements JR Work Phone: Start: 59-97-8980TM of thorax with contrastAsya Clements JR Work Phone: Start: 54-89-1004Csbzx hip unilateral with pelvis 2-3 viewsDarian Barclay PA-C Work Phone: Start: 19-20-6378Ccwnncozktm removal of ureteric stent Kera Reid Start: 22-48-2981KmlwmikkncHcpgbtu Valone JR Work Phone: Start: 04-37-6691Bor routine ecg w/least 12 lds w/i&r Елена Griffin MD Work Phone: Start: 25-53-5067VGD of headJR Asya Clements Work Phone: Start: 71-02-3071DspvdiiteuoUrns Hill PA Work Phone: Start: 75-83-4340Bgknacmlw mammography of bilateral breastsCharles Starr Work Phone: Start: 03-25-4888Szhiuexyg on brainKathy Lukonrad Ankle region structure (body structure)Kera Lue Procedure on eyeKathy Nikolaye Plan of Treatment DateCare ActivityDetailAuthorStart: 47-46-6732LOW High Risk: (Elderly (60+) or Population) (1 - 1-dose 75+ series)RSV High Risk: (Elderly (60+) or Population) (1 - 1-dose 75+ series)[facility] Start: 07-73-0340XQS Vaccine (1 - 1-dose 75+ series)RSV Vaccine (1 - 1-dose 75+ series)[facility]: 29-27-2602Iuulmsfb ScreeningDiabetes Screening [facility]: 41-79-5016Ubttkjay ScreeningDiabetes ScreeningWadsworth-Rittman Hospitaltart: 78-04-9129Yfgdjyqq ScreeningDiabetes ScreeningGood [facility]aritan [facility] Start: 29-22-5827Ootpkppj ScreeningDiabetes ScreeningWadsworth-Rittman Hospitaltart: 29-09-8539Jktkdthr ScreeningDiabetes ScreeningWadsworth-Rittman Hospitaltart: 11-03-2027 Diabetes ScreeningDiabetes ScreeningWadsworth-Rittman Hospitaltart: 22-71-2024Kfdpdljg ScreeningDiabetes ScreeningWadsworth-Rittman Hospitaltart: 07-07-3380Ahpeyrca Screening Diabetes ScreeningWadsworth-Rittman Hospitaltart: 65-22-3989Jlgzrokr ScreeningDiabetes ScreeningWadsworth-Rittman Hospitaltart: 44-36-3695Myvjmecg ScreeningDiabetes Screening [facility]: 27-78-1159Ohpilufrg for malignant neoplasm of colon [facility]Start: 09-19-2025 End: 60-26-9302Qhtowug encounter codkngozs10/03/2026 1:40 PM EST Office Visit Endocrinology [address] [place], [place] [phone] Shawna Flores MD, PhD [address] [place] [address] Return in about 6 months (around 09/14/2025).Endocrinology Comment on above:Return in about 6 months (around 09/14/2025).Start: 05-30-2025 End: 42-43-7233Qxoiwti encounter lqgfgavmr11/11/2025 10:30 AM EST Office Visit Palliative Medicine [address] [place] [address] [place] [address] Vincent Estrada, AUTOMOBILE BODY CUSTOMIZER.PARKING LOT ATTENDANT AND CASHIER [address] [place] [address] 3 month follow upPalliative MedicineComment on above: 3 month follow upStart: 04-13-2025 End: 74-99-3957Ydpecfq encounter inqzbeqcv44/25/2025 1:00 PM EDT Appointment Radiology [address] [place], [place] [id number] Multiple thyroid nodules [E04.2]RadiologyComment on above:Multiple thyroid nodules [E04.2]Start: 04-12-2025 End: 06-11-0875CPQ W Auto Differential panel - BloodCOMPLETE BLOOD COUNT AND DIFFERENTIAL Lab Routine 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) Expected: 04/12/2025 (Approximate), Expires: 07/12/2025[facility] ClinicComment on above: Expected: 04/12/2025 (Approximate), Expires: 07/12/2025Start: 04-12-2025 End: 93-63-0127Rljpvpriogvwb metabolic 2000 panel - Serum or PlasmaCOMPREHENSIVE METABOLIC PANEL Lab Routine 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) Expected: 04/12/2025 (Approximate), Expires: 07/12/2025[facility] ClinicComment on above:Expected: 04/12/2025 (Approximate), Expires: 07/12/2025Start: 04-12-2025 End: 67-60-6289Ehffdbiup [Mass/volume] in Serum or PlasmaMAGNESIUM Lab Routine 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) Expected: 04/12/2025 (Approximate), Expires: 07/12/2025[facility] ClinicComment on above:Expected: 04/12/2025 (Approximate), Expires: 07/12/2025Start: 04-12-2025 End: 44-49-3309Uoczzhrolui [Units/volume] in Serum or PlasmaTHYROID STIMULATING HORMONE Lab Routine 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) Other fatigue Exp ected: 04/12/2025 (Approximate), Expires: 07/12/2025[facility] ClinicComment on above:Expected: 04/12/2025 (Approximate), Expires: 07/12/2025Start: 04-12-2025 End: 17-47-7554Pvlwtc-up lysrxkjkp78/24/2025 10:20 AM EDT Visit (SP) Office Hematology/Oncology [address] [place] [address] Isaac Gracia MD [address] [place] [address] 4 week follow upHematology/OncologyComment on above:4 week follow upStart: 04-12-2025 End: 42-30-3957hzrpcyzxfh96/24/2025 9:45 AM EDT Results Only [facility] [address] [facility] [address] labs before Flanagan apptNortCorewell Health Ludington Hospital LaboratoryComment on above:labs before Flanagan apptStart: 04-07-2025 End: 79-59-4208Yptevds encounter procedureRadiology Pet CTComment on above:Pet scanPLEASE VERIFY PATIENTS ADDRESS AND PHONE NUMBER - PT HAS RETURNED MAIL Start: 04-05-2025 End: 22-76-9418USC+CT Guidance for localization of tumor of Skull base to mid-thigh-- W 18F-FDG IVNM PET/CT SKULL-THIGH SUBSEQUENT Radiology Routine 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) Expected: 04/05/2025 (Approximate), Expires: 04/14/2026[facility] Work Phone: Comment on above:Expected: 04/05/2025 (Approximate), Expires: 04/14/2026Start: 79-64-8643Znwyrqtpp [facility] HospitalStart: 03-15-2025 End: 96-94-0752Shitjv-up encounterHematology/OncologyComment on above:3 week Follow up / GUZMAN appt today at 10:15amStart: 03-15-2025 End: 92-42-7200Tszygxc encounter procedureRadiation OncologyComment on above:3 week follow upPossible lab draw per staff messageStart: 03-14-2025 End: 71-33-7693Ooejbwpwame [Units/volume] in Serum or PlasmaTHYROID STIMULATING HORMONE Lab Routine Acquired hypothyroidism Expected: 03/14/2025, Expires: 06/13[facility] Work Phone: Comment on above:Expected: 03/14/2025, Expires: 06/13/2025Start: 03-14-2025 End: 03-65-9512Dmfvecahe (T4) free [Mass/volume] in Serum or PlasmaT4 FREE/FREE THYROXINE Lab Routine Acquired hypothyroidism Expected: 03/14/2025, Expires: 06/13/2025[facility] HospitalComment on above:Expected: 03/14/2025, Expires: 06/13/2025Start: 03-14-2025 End: 54-13-1267Zddnizu encounter /26/2025 1:00 PM EDT Office Visit Endocrinology [address] [place], [place] [phone] Shawna Flores MD, PhD [address] [place], [place] [phone] Would like to have thyroid nodules checked [...] he can offer. - ptStart: 02-28-2025 End: 03-59-2226Lafminj encounter dsnfrmfih79/12/2025 11:00 AM EDT Office Visit Palliative Medicine [address] [place] [address] Vincent Estrada, AUTOMOBILE BODY CUSTOMIZER.PARKING LOT ATTENDANT AND CASHIER [address] [place] [address] 3 month follow upPalliative MedicineComment on above: 3 month follow upStart: 02-24-2025 End: 26-47-9210Bofzom-up pktyggtqi35/08/2025 2:40 PM EDT Visit (SP) Office Hematology/Oncology [address] [place], [place] [phone] Isaac Gracia MD [address] [place] [address] 2 week follow upHematology/OncologyComment on above:2 week follow upStart: 02-24-2025 End: 85-33-5182Sdtlmgl encounter /08/2025 2:15 PM EDT Office Visit [facility] [address] [place] [address] 2 week follow upNortCorewell Health Ludington Hospital LaboratoryComment on above:2 week follow upStart: 02-22-2025 End: 20-59-5546Yyltaoc encounter ghykkfycj04/06/2025 11:30 AM EDT Office Visit Palliative Medicine [address] [place] [address] Vincent Estrada, AUTOMOBILE BODY CUSTOMIZER.PARKING LOT ATTENDANT AND CASHIER [address] [place] [address] 3 month follow upPalliative MedicineComment on above: 3 month follow upStart: 02-21-2025 End: 16-30-4525Xtlctgp encounter tcqqaltid54/05/2025 8:45 AM EDT Appointment Radiation Oncology [address] [place] [address] Shoulder/neckRadiation OncologyComment on above:Shoulder/neckStart: 02-20-2025 End: 10-06-4964Stkbael encounter procedureRadiation OncologyComment on above: Shoulder/neckLocation: SA-ON TREATMENT REVStart: 02-17-2025 End: 60-48-1864Nfwsbew encounter bwutlxlnf12/01/2025 9:30 AM EDT Appointment Radiation Oncology [address] [place] [address] Shoulder/neckRadiation OncologyComment on above:Shoulder/neckStart: 02-16-2025 End: 67-65-3778Yorunvs encounter xyovbqztp03/31/2025 9:30 AM EDT Appointment Radiation Oncology [address] [place] [address] Shoulder/neckRadiation OncologyComment on above:Shoulder/neckStart: 02-15-2025 End: 32-39-5248Jsujomg encounter mhprglgyz42/30/2025 8:45 AM EDT Appointment Radiation Oncology [address] [place] [address] Shoulder/neckRadiation OncologyComment on above:Shoulder/neckStart: 02-14-2025 End: 27-64-0142Ccxwdat encounter apprvsnzi67/29/2025 9:15 AM EDT Appointment Radiation Oncology [address] [place] [address] Shoulder/neckRadiation OncologyComment on above:Shoulder/neckStart: 02-13-2025 End: 76-02-0393Nuflkjt encounter procedureRadiation OncologyComment on above: Shoulder/neckLocation: SA-ON TREATMENT REVStart: 02-09-2025 End: 66-43-6218Bwhiyy-up bfvpucmvq91/24/2025 3:00 PM EDT Visit (SP) Office Hematology/Oncology [address] [place], [place] [phone] Isaac Gracia MD [address] [place] [address] 2 week follow upHematology/OncologyComment on above:2 week follow upStart: 02-09-2025 End: 67-34-9631Sjsfebl encounter fukrfsioe48/24/2025 2:45 PM EDT Office Visit [facility] [place] [address] 2 week follow upNortCorewell Health Ludington Hospital LaboratoryComment on above:2 week follow upStart: 02-09-2025 End: 60-92-4189VJD W Auto Differential panel - BloodCOMPLETE BLOOD COUNT AND DIFFERENTIAL Lab Routine 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) Expected: 02/09/2025 (Approximate), Expires: 05/11/2025[facility] ClinicComment on above: Expected: 02/09/2025 (Approximate), Expires: 05/11/2025Start: 02-09-2025 End: 68-30-0472Jzdelbzgvnnxu metabolic 2000 panel - Serum or PlasmaCOMPREHENSIVE METABOLIC PANEL Lab Routine 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) Expected: 02/09/2025 (Approximate), Expires: 05/11/2025[facility] ClinicComment on above:Expected: 02/09/2025 (Approximate), Expires: 05/11/2025Start: 02-09-2025 End: 59-87-2747Sbdmqonql [Mass/volume] in Serum or PlasmaMAGNESIUM Lab Routine 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) Expected: 02/09/2025 (Approximate), Expires: 05/11/2025[facility] ClinicComment on above:Expected: 02/09/2025 (Approximate), Expires: 05/11/2025Start: 02-09-2025 End: 49-38-2926CW Brain WO and W contrast IVMRI BRAIN WO/W IVCON Radiology Routine 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) Expected: 02/09/2025 (Approximate), Expires: 02/25/2026[place] [facility] Work Phone: comment on above:Expected: 02/09/2025 (Approximate), Expires: 02/25/2026Start: 02-09-2025 End: 60-53-4565Ktsumcqliyv [Units/volume] in Serum or PlasmaTHYROID STIMULATING HORMONE Lab Routine 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) Other fatigue Exp ected: 02/09/2025 (Approximate), Expires: 05/11/2025[facility] ClinicComment on above:Expected: 02/09/2025 (Approximate), Expires: 05/11/2025Start: 02-08-2025 End: 35-08-4028Lqztsiu encounter procedureRadiation OncologyComment on above:NEW START RIGHT NECK/SHOULDERNEW START RIGHT NECK SHOULDER-late morningStart: 02-06-2025 End: 68-85-2252Jgcptrq encounter vqcmyilch33/21/2025 3:40 PM EDT Office Visit [facility]OT PEREZ [address] [place] [address] Ayesha Foote NP [address] [place] [address] ELLIOT SHARMAINEEVUEStart: 02-02-2025 End: 08-90-2437Reyzazz evaluation of patient and aaonrc7002/02/2025 10:00 AM EDT Nurse Visit Hematology/Oncology [address] [place] [address] [place] [address] [phone] Patricia Gregory, RN [address] [place] [address] Chemo EducationHematology/OncologyComment on above: Chemo EducationStart: 02-02-2025 End: 57-29-7892Rbmntpp encounter procedureRadiation OncologyComment on above:Est Pt New Problem, R ShoulderSIM SHOULDER- PRE SIM CONSENTStart: 01-26-2025 End: 38-37-2149Htfivc-up encounterHematology/OncologyComment on above:3 week follow up lab CHEMOTX CARBO/TAXOL/KEYTRUDAStart: 01-26-2025 End: 26-19-1158Eccbevm encounter /10/2025 8:15 AM EDT Office Visit [facility] [address] [place], [place] [address] [address] 3 week follow up lab CHEMOTX CARBO/TAXOL/KEYTRUDANortCorewell Health Ludington Hospital LaboratoryComment on above:3 week follow up lab CHEMOTX CARBO/TAXOL/KEYTRUDAStart: 01-25-2025 End: 92-70-9895Ycujgbt encounter eaaldpadj36/09/2025 10:45 AM EDT Office Visit Facial Plastics/Reconstruction [address] [place] [address] Elizabeth Balbuena MD [address] [place], [place] [phone] medical botoxFacial Plastics/ReconstructionComment on above:medical botoxStart: 01-23-2025 End: 63-55-2171Martyvr evaluation of patient and blvuha6201/23/2025 11:00 AM EDT Nurse Visit Hematology/Oncology [address] [place] [address] [place] [address] Ghislaine Thakur RN [address] [place] [address] Chemo edHematology/OncologyComment on above:Chemo edStart: 01-18-2025 End: 69-10-4288KUD+CT Guidance for localization of tumor of Skull base to mid-thigh-- W 18F-FDG IVNM PET/CT SKULL-THIGH SUBSEQUENT Radiology Routine Metastatic cancer to bone (HCC) Expected: 01/18/2025 (Approximate), Expires: 02/03/2026[facility] Work Phone: comment on above:Expected: 01/18/2025 (Approximate), Expires: 02/03/2026Start: 01-18-2025 End: 09-33-7429Ulmzyom encounter tyuqxpygb15/02/2025 8:00 AM EDT Appointment Radiology Pet CT [address] [place] [address] pet Radiology Pet CTComment on above:petStart: 01-04-2025 End: 71-96-4460HAT W Auto Differential panel - BloodCOMPLETE BLOOD COUNT AND DIFFERENTIAL Lab Routine Malignant neoplasm of overlapping sites of right lung (HCC) Metastatic cancer to bone (HCC) Malaise and fatigue Expected: 01/04/2025 (Approximate), Expires: 04/05/2025[facility] HospitalComment on above:Expected: 01/04/2025 (Approximate), Expires: 04/05/2025Start: 01-04-2025 End: 61-08-4075Xlsonoyrtlwxn metabolic 2000 panel - Serum or PlasmaCOMPREHENSIVE METABOLIC PANEL Lab Routine Malignant neoplasm of overlapping sites of right lung (HCC) Metastatic cancer to bone (HCC) Malaise and fatigue Expected: 01/04/2025 (Approximate), Expires: 04/05/2025[facility] Work Phone: Comment on above:Expected: 01/04/2025 (Approximate), Expires: 04/05/2025Start: 01-04-2025 End: 45-14-9612Muiggberhmf [Units/volume] in Serum or PlasmaTHYROID STIMULATING HORMONE Lab Routine Malignant neoplasm of overlapping sites of right lung (HCC) Metastatic cancer to bone (HCC) Malaise and fatigue Expected: 01/04/2025 (Approximate), Expires: 04/05/2025[facility] ClinicComment on above:Expected: 01/04/2025 (Approximate), Expires: 04/05/2025Start: 01-04-2025 End: 34-16-3671Lwibmg-up encounterHematology/OncologyComment on above:3 week follow up lab CHEMOTX CARBO/TAXOL/KEYTRUDAStart: 01-04-2025 End: 34-80-5156Pycukin encounter cmbwyribo47/18/2025 9:45 AM EDT Office Visit [facility] [address] [place] [address] 3 week follow up lab CHEMOTX CARBO/TAXOL/KEYTRUDANortCorewell Health Ludington Hospital LaboratoryComment on above:3 week follow up lab CHEMOTX CARBO/TAXOL/KEYTRUDAStart: 12-14-2024 End: 39-88-3358NYI W Auto Differential panel - BloodCOMPLETE BLOOD COUNT AND DIFFERENTIAL Lab Routine Malignant neoplasm of overlapping sites of right lung (HCC) Expected: 12/14/2024 (Approximate), Expires: 03/15/2025[facility] Work Phone: comment on above:Expected: 12/14/2024 (Approximate), Expires: 03/15/2025Start: 12-14-2024 End: 58-88-5816Agznhzerhcmlp metabolic 2000 panel - Serum or PlasmaCOMPREHENSIVE METABOLIC PANEL Lab Routine Malignant neoplasm of overlapping sites of right lung (HCC) Expected: 12/14/2024 (Approximate), Expires: 03/15/2025[facility] ClinicComment on above:Expected: 12/14/2024 (Approximate), Expires: 03/15/2025 Start: 12-14-2024 End: 59-13-2529Qimufwanj [Mass/volume] in Serum or PlasmaMAGNESIUM Lab Routine Malignant neoplasm of overlapping sites of right lung (HCC) Expected: 12/14/2024 (Approximate), Expires: 03/15/2025leveland ClinicComment on above:Expected: 12/14/2024 (Approximate), Expires: 03/15/2025Start: 12-14-2024 End: 55-26-4207Pfofar-up encounterHematology/OncologyComment on above:3 week follow up lab CHEMOTX CARBO/TAXOL/KEYTRUDAStart: 12-14-2024 End: 59-92-2327Jcigiqy encounter erytmwnmw18/28/2025 9:45 AM EDT Office Visit [facility] [address] [place] [address] 3 week follow up lab CHEMOTX CARBO/TAXOL/KEYTRUDANortCorewell Health Ludington Hospital LaboratoryComment on above:3 week follow up lab CHEMOTX CARBO/TAXOL/KEYTRUDAStart: 11-23-2024 End: 68-41-8793LJL W Auto Differential panel - BloodCOMPLETE BLOOD COUNT AND DIFFERENTIAL Lab Routine Lung mass Malignant neoplasm of overlapping sitesof right lung (HCC) Expected: 11/23/2024, Expires: 02/22/2025[facility] Work Phone: comment on above:Expected: 11/23/2024, Expires: 02/22/2025Start: 11-23-2024 End: 48-15-5871Hkqaijwefjeuv metabolic 2000 panel - Serum or PlasmaCOMPREHENSIVE METABOLIC PANEL Lab Routine Lung mass Malignant neoplasm of overlapping sites of right lung (HCC) Expected: 11/23/2024, Expires: 02/22/2025[facility] Comment on above:Expected: 11/23/2024, Expires: 02/22/2025Start: 11-23-2024 End: 38-51-0428Uodspczjn [Mass/volume] in Serum or PlasmaMAGNESIUM Lab Routine Lung mass Malignant neoplasm of overlapping sites of right lung (HCC) Expected: 11/23/2024, Expires: 02/22/2025[facility] ClinicComment on above:Expected: 11/23/2024, Expires: 02/22/2025Start: 11-23-2024 End: 48-49-8114Ybclyztzvbo [Units/volume] in Serum or PlasmaTHYROID STIMULATING HORMONE Lab Routine Lung mass Malignant neoplasm of overlapping sites of right l king (HCC) Other mixed anxiety disorders Expected: 11/23/2024, Expires: 5C[facility] ClinicComment on above:Expected: 11/23/2024, Expires: 02/22/2025Start: 11-23-2024 End: 95-85-4445Gfpooq-up encounterHematology/OncologyComment on above:3 week follow up lab CHEMOTX CARBO/TAXOL/KEYTRUDAStart: 11-23-2024 End: 09-27-1034Pctseth encounter /07/2025 9:45 AM EDT Office Visit [facility] [address] [place] [address] 3 week follow up lab CHEMOTX CARBO/TAXOL/KEYTRUDANortCorewell Health Lud[facility] Hospital LaboratoryComment on above:3 week follow up lab CHEMOTX CARBO/TAXOL/KEYTRUDAStart: 11-22-2024 End: 06-17-9731Dnhorlc encounter procedureANA BELLEVUEComment on above:Arrived Start: 11-16-2024 End: 25-24-6275JSH+CT Guidance for localization of tumor of Skull base to mid-thigh-- W 18F-FDG IVNM PET/CT SKULL-THIGH SUBSEQUENT Radiology Routine Metastatic cancer to bone (HCC) Malignant neoplasm of overlapping sites of right lung (HCC) Expected: 11/16/2024, Expires: 12/02/2025[facility] Work Phone: comment on above:Expected: 11/16/2024, Expires: 12/02/2025Start: 11-15-2024 End: 91-29-3939Bttjpub encounter /29/2025 8:00 AM EDT Appointment Radiology Pet CT [address] [place] [address] pet Radiology Pet CTComment on above:petStart: 11-04-2024 End: 14-52-7168Ltphmkw encounter roqxknupv84/18/2025 11:30 AM EDT Office Visit Palliative Medicine [address] [place] [address] Vincent Estrada, AUTOMOBILE BODY CUSTOMIZER.PARKING LOT ATTENDANT AND CASHIER [address] [place] [address] 6 wk followPalliative MedicineComment on above:6 wk followStart: 11-02-2024 End: 92-30-7590Jxarvn-up encounterHematology/OncologyComment on above:3 week follow up lab CHEMOTX CARBO/TAXOL/KEYTRUDAStart: 11-02-2024 End: 14-10-3774Benhtii encounter skigvpzep73/16/2025 8:45 AM EDT Office Visit [facility] [address] [place] [address] 3 week follow up lab CHEMOTX CARBO/TAXOL/KEYTRUDANortCorewell Health [facility] Hospital LaboratoryComment on above:3 week follow up lab CHEMOTX CARBO/TAXOL/KEYTRUDAStart: 10-12-2024 End: 83-54-0993Qkfxwa-up encounterHematology/OncologyComment on above:3 week follow up lab CHEMOTX CARBO/TAXOL/KEYTRUDAStart: 10-12-2024 End: 41-41-0999Cvcnmgf encounter upzqipvxn62/26/2025 9:15 AM EDT Office Visit [facility] [address] [place] [address] 3 week follow up lab CHEMOTX CARBO/TAXOL/KEYTRUDANorth [facility] LaboratoryComment on above:3 week follow up lab CHEMOTX CARBO/TAXOL/KEYTRUDAStart: 09-27-2024 End: 55-33-8102ECX W Auto Differential panel - BloodCOMPLETE BLOOD COUNT AND DIFFERENTIAL Lab Routine Metastatic cancer to bone (HCC) Malignant neoplasm of overlapping sites of right lung (HCC) Malaise and fatigue Expected: 09/27/2024, Expires: 12/27/2024leveland ClinicComment on above:Expected: 09/27/2024, Expires: 12/27/2024Start: 09-27-2024 End: 80-83-8806Ulppiimrvichl metabolic 2000 panel - Serum or PlasmaCOMPREHENSIVE METABOLIC PANEL Lab Routine Metastatic cancer to bone (HCC) Malignant neoplasm of overlapping sites of right lung (HCC) Malaise and fatigue Expected: 09/27/2024, Expires: 12/27/2024[facility] Work Phone: Comment on above:Expected: 09/27/2024, Expires: 12/27/2024Start: 09-27-2024 End: 50-11-5977Dewjhznrn [Mass/volume] in Serum or PlasmaMAGNESIUM Lab Routine Metastatic cancer to bone (HCC) Malignant neoplasm of overlapping sites of right lung (HCC) Malaise and fatigue Expected: 09/27/2024, Expires: 12/27/2024 [facility] HospitalComment on above:Expected: 09/27/2024, Expires: 12/27/2024Start: 09-27-2024 End: 64-02-3134Bgxgvqkacvi [Units/volume] in Serum or PlasmaTHYROID STIMULATING HORMONE Lab Routine Metastatic cancer to bone (HCC) Malignant neoplasm of overla pping sites of right lung (HCC) Malaise and fatigue Expected: 09/27/2024, Expires: 12/27/2024[facility] HospitalComment on above:Expected: 09/27/2024, Expires: 12/27/2024Start: 2024 End: 43-64-5444Uenkzzs encounter vkjceyjjm62/07/2025 11:00 AM EST Office Visit Palliative Medicine [address] [place] [address] Vincent Estrada AUTOMOBILE BODY CUSTOMIZER.PARKING LOT ATTENDANT AND CASHIER [address] [place] [address] 4 week follow upPalliative MedicineComment on above:4 week follow upStart: 09-22-2024 End: 59-38-5198Fgeccb-up qbrtpujyz94/06/2025 10:00 AM EST Visit (SP) Office Hematology/Oncology [address] [place] [address] Ann-Marie Gomez APRN.PARKING LOT ATTENDANT AND CASHIER [address] [place] [address] 1 week follow upHematology/OncologyComment on above:1 week follow upStart: 09-22-2024 End: 59-31-2165Tqwylsm encounter uojiogvmm81/06/2025 9:45 AM EST Office Visit [facility] [address] [place] [address] LAB & 1 WEEK FOLLOW UP-possible hydrationNortCorewell Health Ludington Hospital LaboratoryComment on above:LAB & 1 WEEK FOLLOW UP- possible hydrationStart: 09-21-2024 End: 07-37-6995BDO W Auto Differential panel - BloodCOMPLETE BLOOD COUNT AND DIFFERENTIAL Lab Routine Lung mass Metastatic cancer to bone (HCC) Expected: 09/21/2024 (Approximate), Expires: 12/21/2024[facility] Work Phone: comment on above:Expected: 09/21/2024 (Approximate), Expires: 12/21/2024Start: 09-21-2024 End: 72-98-8258Bwlsedzwx (Vitamin B12) [Mass/volume] in Serum or PlasmaVITAMIN B12 Lab Routine Lung mass Metastatic cancer to bone (HCC) Expected: 09/21/2024 (Approximate), Expires: 12/21/2024[facility] ClinicComment on above:Expected: 09/21/2024 (Approximate), Expires: 12/21/2024Start: 09-21-2024 End: 62-27-7560Nnrlmdbhwxycn metabolic 2000 panel - Serum or PlasmaCOMPREHENSIVE METABOLIC PANEL Lab Routine Lung mass Metastatic cancer to bone (HCC) Expected: 09/21/2024 (Approximate), Expires: 12/21/2024[facility] ClinicComment on above: Expected: 09/21/2024 (Approximate), Expires: 12/21/2024Start: 09-21-2024 End: 63-93-3078Wuitutzd [Mass/volume] in Serum or PlasmaFERRITIN Lab Routine Lung mass Metastatic cancer to bone (HCC) Expected: 09/21/2024 (Approximate), E xpires: 12/21/2024[facility] ClinicComment on above:Expected: 09/21/2024 (Approximate), Expires: 12/21/2024Start: 09-21-2024 End: 97-42-0840Wdzgvt [Mass/volume] in Serum or PlasmaFOLATE, SERUM Lab Routine Lung mass Metastatic cancer to bone (HCC) Expected: 09/21/2024 (Approximate), Expires: 12/21/2024[facility] ClinicComment on above:Expected: 09/21/2024 (Approximate), Expires: 12/21/2024Start: 09-21-2024 End: 33-16-2615Guyljqpmcej [Mass/volume] in Serum or PlasmaHAPTOGLOBIN Lab Routine Lung mass Metastatic cancer to bone (HCC) Expected: 09/21/2024 (Approximate), Expires: 12/21/2024[facility] ClinicComment on above:Expected: 09/21/2024 (Approximate), Expires: 12/21/2024Start: 09-21-2024 End: 18-52-3220Vagt and Iron binding capacity panel - Serum or PlasmaIRON AND TIBC Lab Routine Lung mass Metastatic cancer to bone (HCC) Expected: 09/21/2024 (Approximate), Expires: 12/21/2024[facility] ClinicComment on above:Expected: 09/21/2024 (Approximate), Expires: 12/21/2024Start: 09-21-2024 End: 66-00-8601QTDIJ/MEHTA,FREE,SERKAPPA/MEHTA,FREE,SER Lab Routine Lung mass Metastatic cancer to bone (HCC) Expected: 09/21/2024, Expires: 12/21/2024 [facility] HospitalComment on above:Expected: 09/21/2024, Expires: 12/21/2024Start: 09-21-2024 End: 49-99-8281Ccdmjd-up ypdjuojeq22/05/2025 11:00 AM EST Visit (SP) Office Hematology/Oncology [address] [place] [address] Ann-Marie Gomez APRN.PARKING LOT ATTENDANT AND CASHIER [address] [place] [address] 1 week follow upHematology/OncologyComment on above:1 week follow upStart: 09-21-2024 End: 07-46-2281Jtqdxzs encounter yqcqxtpsd12/05/2025 10:45 AM EST Office Visit [facility] [address] [place] [address] 1 week follow upNortCorewell Health Ludington Hospital LaboratoryComment on above:1 week follow upStart: 09-16-2024 End: 68-41-0679Ynmatovwl drqhgwa4109/16/2024 10:00 AM EST [facility] Nutrition Therapy [address] [place] [address] Dahlia Machado, RD [address] [place] [address] Nutri appt / Dr GraciaNutrition TherapyComment on above:Nutri appt / Dr GraciaStart: 09-14-2024 End: 89-23-6909Zgazqa-up encounterHematology/OncologyComment on above:FOLLOW UP AND CHEMOTX CARBO/TAXOL/KEYTRUDA - fr discharge 09/12Start: 09-14-2024 End: 10-55-3887Ulgpvhx encounter zoaokpcst19/26/2025 8:45 AM EST Office Visit [facility] [address] [place] [address] FOLLOW UP AND CHEMOTX CARBO/TAXOL/KEYTRUDA - frmc discharge 09/12NortCorewell Health [facility] Hospital LaboratoryComment on above:FOLLOW UP AND CHEMOTX CARBO/TAXOL/KEYTRUDA - frmc discharge 09/12Start: 37-19-6271ZrvriswxpMercy Memorial Hospitaltart: 91-79-4008Zuxsnxjm identified in Blood by Culture Blood CultureMercy Memorial Hospitaltart: 09-09-2024 End: 26-62-0095GMD W Auto Differential panel - BloodCOMPLETE BLOOD COUNT AND DIFFERENTIAL Lab Routine Malignant neoplasm of overlapping sites of right lung (HCC) Expected: 09/09/2024 (Approximate), Expires: 12/09/2024[facility] Work Phone: comment on above:Expected: 09/09/2024 (Approximate), Expires: 12/09/2024Start: 09-09-2024 End: 75-16-0340Ngdvayrxpotug metabolic 2000 panel - Serum or PlasmaCOMPREHENSIVE METABOLIC PANEL Lab Routine Malignant neoplasm of overlapping sites of right lung (HCC) Expected: 09/09/2024 (Approximate), Expires: 12/09/2024[facility] ClinicComment on above:Expected: 09/09/2024 (Approximate), Expires: 12/09/2024 Start: 09-09-2024 End: 15-30-6271Ianobhgok [Mass/volume] in Serum or PlasmaMAGNESIUM Lab Routine Malignant neoplasm of overlapping sites of right lung (HCC) Expected: 09/09/2024 (Approximate), Expires: 12/09/2024[facility] ClinicComment on above:Expected: 09/09/2024 (Approximate), Expires: 12/09/2024Start: 09-09-2024 End: 98-00-9026Vghyaeunpvn [Units/volume] in Serum or PlasmaTHYROID STIMULATING HORMONE Lab Routine Malignant neoplasm of overlapping sites of right lung (HCC) Anxiety disorder, unspecified type Expected: 09/09/2024 (Approximate), Expires: 12/09/2024[facility] ClinicComment on above:Expected: 09/09/2024 (Approximate), Expires: 12/09/2024Start: 43-65-1647Gcomtalu to oncologistMercy Memorial Hospitaltart: 33-82-5319AlcyccxxiMercy Memorial Hospitaltart: 95-73-7337Gobcwfds to rehabilitation [facility] Start: 09-09-2024 End: 83-02-5513Lctfrj-up encounterHematology/OncologyComment on above:2 WEEK LAB FOLLOW UP AND CHEMOTX CARBO/TAXOL/KEYTRUDAStart: 09-09-2024 End: 87-41-1836Qxusyep encounter procedureOchsner St [facility] LaboratoryComment on above:2 WEEK LAB FOLLOW UP AND CHEMOTX CARBO/TAXOL/KEYTRUDA PLEASE SCHEDULE NUTRI CONSULT IF PATIENT WANTSStart: 80-79-6323Jnqaquah to infectious diseases physicianMercy Memorial Hospitaltart: 09-07-2024 Hospital admissionMercy Memorial Hospitaltart: 65-37-5841MinsphqrwMercy Memorial Hospitaltart: 09-06-2024 End: 90-63-1514UnhqohklrMercy Memorial Hospitaltart: 90-07-9656Mufqklsx identified in Blood by CultureBlcuhy [facility] Start: 09-06-2024 End: 29-62-0388Tajmhzn encounter wjzlvubny85/18/2025 1:20 PM EST Office Visit [facility] [place] [facility] [address] [place] [phone] Emilia Cervantes PA [address] [place] [address] [facility] ROUTEStart: 08-31-2024 End: 37-16-6284Ejxxeap encounter procedureRadiation OncologyComment on above:Rt Shoulder \T\ Rt PelvisLocation: SA-ON TREATMENT REVStart: 08-30-2024 End: 29-09-1865Igzoxqn evaluation of patient and jfvesq1508/30/2024 3:00 PM EST Nurse Visit Hematology/Oncology [address] [facility] [address] [phone] Ghislaine Thakur RN [address] [place] [address] CARBO/TAXOL/KEYTRUDAHematology/OncologyComment on above: CARBO/TAXOL/KEYTRUDAStart: 08-30-2024 End: 88-62-7300Mkkhzbq encounter obgcypnqn07/11/2025 2:45 PM EST Appointment Radiation Oncology [address] [facility] [address] Rt Shoulder \T\ Rt PelvisRadiation OncologyComment on above:Rt Shoulder \T\ Rt PelvisStart: 08-29-2024 End: 86-14-4393Lziqbuu encounter ihfnesebj82/10/2025 1:00 PM EST Appointment Radiation Oncology [facility] [place] [address] Rt Shoulder \T\ Rt PelvisRadiation OncologyComment on above:Rt Shoulder \T\ Rt PelvisStart: 08-26-2024 End: 39-23-1233vzbiyvezgr81/07/2025 1:30 PM EST Visit (SP) Office Hematology/Oncology [address] [place] [address] [address] [place], [place] [phone] Isaac Gracia MD [address] [place] [address] [place] [address] Malignant neoplasm of overlapping sites of right lung (HCC) [C34.81]Hematology/OncologyComment on above:Malignant neoplasm of overlapping sites of right lung (HCC) [C34.81]Start: 08-26-2024 End: 52-34-0204Isboubz encounter iishozitn04/07/2025 12:30 PM EST Appointment Radiation Oncology [address] [place] [address] [place] [address] Rt Shoulder \T\ Rt Pelvis - PALL MED AT 1, FLANAGAN AT 130Radiation OncologyComment on above:Rt Shoulder \T\ Rt Pelvis - PALL MED AT 1, FLANAGAN AT 130Start: 08-26-2024 End: 98-15-6760Kmltwse encounter procedurePalliative MedicineComment on above: NEW PALL CAREStart: 08-25-2024 End: 39-98-6051Cnhzaft encounter procedureRadiation OncologyComment on above:NEW START RT SHOULDER \T\ RT HIPRT SHOULDER \T\ RT HIP - AFTERNOONS- make safety strapStart: 08-24-2024 End: 26-25-1952Zkfdcvh evaluation of patient and rbghzs3508/24/2024 2:40 PM EST Nurse Visit Radiation Oncology [address] [place] [address] [place] [address] [phone] Nurse Chio Radiation Ed Radt [address] [place] [address] [place] [address] Nurse EducationRadiation OncologyComment on above:Nurse EducationStart: 08-24-2024 End: 28-90-9962Pritygx encounter procedureRadiation OncologyComment on above: ConsultSIM - RT HIP, RT SHOULDER - NEEDS CONSENTStart: 08-23-2024 End: 94-49-2746vplgtaharf02/04/2025 2:00 PM EST Visit (SP) Office Hematology/Oncology [address] [place], [place] [phone] Sarabjit Crowley, [address] [place] [address] Metastatic with Suspected Lung PrimaryHematology/OncologyComment on above: Metastatic with Suspected Lung PrimaryStart: 08-23-2024 End: 21-24-7877Tfxyebu encounter xvdiloxgu61/04/2025 10:45 AM EST Office Visit Orthopaedics [address] [address] Sarabjit Sharma MD [address] [address] 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 - Per KristiOrthopaedicsComment on above: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 - Per KristiStart: 08-23-2024 End: 84-02-1579Ozxivoc encounter fthawtkne82/04/2025 9:30 AM EST Office Visit Orthopaedics [address] [address] Sarabjit Sharma MD [address] [address] 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 - Per KristiOrthopaedicsComment on above: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 - Per KristiStart: 08-22-2024 End: 08-83-9851Rkxzskj encounter zklueewhz73/03/2025 10:00 AM EST Office Visit Radiation Oncology [address] [place] [address] [place] [address] [place] [address] metastatic cancer- Lung primaryRadiation OncologyComment on above:metastatic cancer- Lung primaryStart: 08-10-2024 End: 95-91-8194Tfwbocnxl to same day surgery ludtlr9008/10/2024 8:00 AM EST - 08/10/2024 9:08 AM EST Surgery Angio [address] [place] [address] Mayi Kidd MD [address] [place] [address] BONEBIOPSY,TROCAR/NEEDLE SUPERFICIALAngioComment on above: BONE BIOPSY,TROCAR/NEEDLE SUPERFICIALStart: 08-10-2024 End: 29-43-8959Dlmhkc bone trocar/needle superficialBONE BIOPSY,TROCAR/NEEDLE SUPERFICIAL Lytic bone lesions on xray 08/10/2024 8:00 AM [facility] ANGIO PQ6Idxrc: 27-24-3873Jjzkzocyvc hospital visit by fqpmbqymn46/22/2025 8:00 AM [facility] Encounter Angio [address] [place] [address] Thomas Araiza MD [address] [place] [address] Lytic bone lesionson xray [M89.9]AngioComment on above:Lytic bone lesions on xray [M89.9] Start: 07-29-2024 End: 18-14-4561XXX PHOS BONE SPECClemercy health ClinicComment on above:Expected: 07/29/2024, Expires: 10/28/2024Start: 07-29-2024 End: 76-97-0869VVPANFK ELECT RND UR W/INTERPCleveland ClinicComment on above: Expected: 07/29/2024, Expires: 10/28/2024Start: 07-29-2024 End: 40-03-6402UONKDGD ELECTROPHORESIS SERUM W/INTERPCleveland ClinicComment on above:Expected: 07/29/2024, Expires: 10/28/2024Start: 57-91-6303Pptnrqn Directive DiscussionAdvance Directive DiscussionClemercy health ClinicStart: 07-07-2024 End: 25-35-3238Kxxdwhv encounter procedureRadiologyComment on above:4 vw RT shoulderPossible bone mets, rt shoulder.Start: 06-07-2024 End: 39-42-2024XdgonsgdtMercy Memorial Hospitaltart: 05-27-2024 End: 58-08-1300WE for calcium scoring WO contrast and CTA W contrast IV Heart and coronary arteriesCT cardiac scoring wo IV contrast Imaging Routine Mixed hyperlipidemia Expected: 05/27/2024 (Approximate), Expires: 05/27/2025[facility] Service Area Work Phone: Comment on above:Expected: 05/27/2024 (Approximate), Expires: 05/27/2025Start: 05-16-2024 End: 65-49-1060Pktlfim encounter pzgloejle38/28/2024 3:40 PM EDT Office Visit [facility] [place] [facility] [address] [place] [address] Shasta Wade PA [address] [place] [address] ArrivedNOMS [place] [facility] ROUTEComment on above: ArrivedStart: 24-67-0256Drcgwstto for malignant neoplasm of colonWadsworth-Rittman Hospitaltart: 16-15-4727Bsisr-19 Vaccine ( season)Covid-19 Vaccine ()[facility] Hospitaltart: 37-32-0914Diqopxgxk vaccinationInfluenza Vaccine (#1)[facility]: 82-69-9031Asowvpg Directive Discussion Advance Directive DiscussionWadsworth-Rittman Hospitaltart: 14-83-9562Ctqdsurco vaccinationInfluenza Vaccine (#1)[facility]: 62-05-9399Onbwdzcpp for malignant neoplasm of breastWadsworth-Rittman Hospitaltart: 52-80-6528AVVHXZE DIRECTIVE DISCUSSIONADVANCE DIRECTIVE DISCUSSIONWadsworth-Rittman Hospitaltart: 07-20-2022 DEPRESSION ASSESSMENTDEPRESSION ASSESSMENTWadsworth-Rittman Hospitaltart: 03-20-2022 Influenza vaccinationWadsworth-Rittman Hospitaltart: 21-98-5204YRYNQ-19 VACCINE (4 - Booster for Pfizer series)COVID-19 VACCINE (4 - Booster for Pfizer series) [facility]: 04-34-6292HMZDZXF DIRECTIVE DISCUSSIONADVANCE DIRECTIVE DISCUSSIONWadsworth-Rittman Hospitaltart: 93-06-0486YYAN DENSITYBONE DENSITYWadsworth-Rittman Hospitaltart: 88-03-1308Bbno Density ScreeningBone Density ScreeningWadsworth-Rittman Hospitaltart: 03-70-5788Wqzutnfwiyui Vaccine: 65+ (1 - PCV)Pneumococcal Vaccine: 65+ (1 - PCV)[facility]: 43-91-8540Efqsfywtnayo Vaccine: 65+ (1 of 1 - PCV)Pneumococcal Vaccine: 65+ (1 of 1 - PCV)[facility]: 2021 Pneumococcal Vaccine: 65+ Years (1 of 1 - PCV)Pneumococcal Vaccine: 65+ Years (1 of 1 - PCV)[facility]: 71-13-6734MTWCDKKBDZFR: 65+ (1 - PCV) PNEUMOCOCCAL: 65+ (1 - PCV)[facility]: 30-54-7987LHOIBGAAS AGE 65 AND OVER WITH 5YR LOOKBACK (#1)PNEUMOVAX AGE 65 AND OVER WITH 5YR LOOKBACK (#1) [facility]: 27-10-1223Rsdpcggmm for osteoporosisBone Density ScreeningWadsworth-Rittman Hospitaltart: 47-24-6336PUIZV-19 VACCINE (4 - Booster for Pfizer series)COVID-19 VACCINE (4 - Booster for Pfizer series)[facility] Start: 62-18-6965Roeve-19 Vaccine (4 - Pfizer series)Covid-19 Vaccine (4 - Pfizer series)[facility]: 57-15-6262YAENFTYGKE ASSESSMENTDEPRESSION ASSESSMENTWadsworth-Rittman Hospitaltart: 69-14-4775KRG Vaccine (1 - Risk 60-74 years 1- dose series)RSV Vaccine (1 - Risk 60-74 years 1-dose series)[facility] Start: 35-10-1215NZKYUUWL SCREENDIABETES SCREENWadsworth-Rittman Hospitaltart: 12-24-2012 Diabetes ScreeningDiabetes ScreeningCleCincinnati Shriners Hospitaltart: 2006 Pneumococcal Vaccine: 50+ (1 of 1 - PCV)Pneumococcal Vaccine: 50+ (1 of 1 - PCV) [facility]: 44-17-2483Smwwqcckjoql Vaccine: 65+ Years (1 of 1 - PCV) Pneumococcal Vaccine: 65+ Years (1 of 1 - PCV)[facility] HospitalStart: 2006 SHINGRIX VACCINE (1 of 2)SHINGRIX VACCINE (1 of 2)[facility]: 85-15-8228Qqcvdj Vaccines (1 of 2)Zoster Vaccines (1 of 2)[facility]Start: 12-01[facility]2005Medicare Annual Wellness VisitMedicare Annual Wellness VisitWadsworth-Rittman Hospitaltart: 52-07-9693PJPXYEWBB (FIT-DNA)COLOGUARD (FIT-DNA)[facility]tart: 38-29-1425YuihdkuoireVUHPEQTPZPYCjhgtjmap Clinic Start: 19-89-6964ZIMJBXHEWM CANCER SCREENINGCOLORECTAL CANCER SCREENINGWadsworth-Rittman Hospitaltart: 38-83-5552RX COLONOGRAPHYCT COLONOGRAPHYWadsworth-Rittman Hospitaltart: 96-71-0212GHBZQ OCCULT BLOODFECAL OCCULT BLOODWadsworth-Rittman Hospitaltart: 2001 Lipid 1996 panel - Serum or PlasmaLipid ScreeningWadsworth-Rittman Hospitaltart: 26-72-7533Lavjd panelLipid ScreeningWadsworth-Rittman Hospitaltart: 78-54-4274ALQGX SCREENLIPID SCREENWadsworth-Rittman Hospitaltart: 64-89-9958Raiguyikd for malignant neoplasm of colonWadsworth-Rittman Hospitaltart: 12-94-2555ZALXNXLRUCMTPCQMVRXJRGIXGE [facility]: 83-86-2190UceaquzndqjPimiirtdg ClinicStart: 1978 DTaP/Tdap/Td Vaccines (1 - Tdap)DTaP/Tdap/Td Vaccines (1 - Tdap)[facility]: 48-55-6724Uqbteiuwpfkl Vaccine: 50+ (1 of 2 - PCV) Pneumococcal Vaccine: 50+ (1 of 2 - PCV)[facility]: 09-24-1975 Shingrix Vaccine (1 of 2)Shingrix Vaccine (1 of 2)[facility]: 64-53-2123Wermg microalbumin profileWadsworth-Rittman Hospitaltart: 70-89-9630Dhlkrl PCP Team Chronic Disease VisitAnnual PCP Team [facility]Good [facility] Start: 42-22-8803Etnagttqxd ScreeningDepression ScreeningWadsworth-Rittman Hospitaltart: 71-40-8648Rctjmvkb mellitus screeningDiabetes ScreeningMagruder HospitalStmckenzie: 41-29-0536DVMKPLHGA C SCREENINGHEPATITIS C SCREENINGWadsworth-Rittman Hospitaltart: 11-31-9575Nluywflvv C screeningHepatitis C ScreeningWadsworth-Rittman Hospitaltart: 76-68-7397ORS SCREENINGHIV SCREENINGWadsworth-Rittman Hospitaltart: 96-19-3376Gntkz depression screening assessmentDEPRESSION SCREENINGWadsworth-Rittman Hospitaltart: 47-10-2888Cksatveho for malignant neoplasm of cervixCervical Cancer ScreeningWadsworth-Rittman Hospitaltart: 63-48-3562Ihkhy panelLipid PanelUnThe MetroHealth SystemStmckenzie: 03-07-1957Medicare Annual Wellness VisitMedicare Annual Wellness Visit (AWV)[facility] HospitalSt[facility]ckenzie: 1955 Screening for malignant neoplasm of colonNOMS [facility] HospitalStart: 1956 Screening for osteoporosisBone Density ScanMagruder Hospital Start: 97-03-7043Hclscjb stimulating hormone measurementTS LevelMagruder Hospital End: 81-78-5587CG Abdomen and Pelvis W contrast IVCT ABD/PEL W IVCON Radiology Routine Lytic bone lesions on xray Thyroid nodule Thyroid nodule greater than or equal to 1 cm in diameter incidentally noted on imaging study 1 Occurrences starting 07/29/2024 until 08/28/2025[facility] Work Phone: comment on above:1 Occurrences starting 07/29/2024 until 08/28/2025 End: 45-15-6547WI Chest W contrast IVCT CHEST W IVCON Radiology Routine Lytic bone lesions on xray Thyroid nodule Thyroid nodule greaterthan or equal to 1 cm in diameter incidentally noted on imaging study 1 Occurrences starting 025 until 08/28/2025[facility] above:1 Occurrences starting 07/29/2024 until 08/28/2025 Guidance for radiation treatment of Unspecified body regionCT SIM PLANNING RADIATION ONCOLOGY Radiology Routine 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) Ordered: 08/24/2024[facility] Work Phone: Comment on above:Ordered: 08/24/2024T Guidance for radiation treatment of Unspecified body regionCT SIM PLANNING RADIATION ONCOLOGY Radiology Routine 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) Ordered: 02/02/2025[facility] Work Phone: Comment on above:Ordered: 02/02/2025Guidance for deep biopsy of BoneIMAGING GUIDED BIOPSY RIB/BONY PELVIS/STERNUM/SPINOUS PROCESS Radiology Routine Lytic bone lesions on xray Ordered: 07/29/2024[facility] Work Phone: comment on above:Ordered: 07/29/2024 End: 21-36-4436GM Brain WO and W contrast IVMRI BRAIN WO/W IVCON Radiology Routine Malignant neoplasm of overlapping sites of right lung (HCC) 1 Occurrences starting 08/23/2024 until 09/22/2025[facility] Work Phone: Comment on above:1 Occurrences starting 08/23/2024 until 09/22/2025 End: 24-56-8050BZ Shoulder - right WO and W contrast IVMRI SHOULDER WO/W IVCON RIGHT Radiology Routine Malignant neoplasm of overlapping sites of right lung (HCC) Metastatic cancer to bone (HCC) Malaise and fatigue Pain of right upper arm Swelling of arm1 Occurrences starting 12/14/2024 until 01/13/2026leveland ClinicComment on above:1 Occurrences starting 12/14/2024 until 01/13/2026 End: 96-09-5011NH Whole body Bone ViewsNM BONE WHOLE BODY Radiology Routine Lytic bone lesions on xray Thyroid nodule Thyroid nodule greater than or equal to 1 cm in diameter incidentally noted on imaging study 1 Occurrences starting 07/29/2024 until 08/28/2025leveland ClinicComment on above:1 Occurrences starting 07/29/2024 until 08/28/2025Patient EducationMercy Health Clerm[facility] Hospital Ctr Work Phone: Patient referralMercy Health Clermont Hospital Ctr Work Phone: SURGICAL PATHOLOGYSURGICAL PATHOLOGY Lab Routine Lytic bone lesions on xray Ordered: 07/29/2024[facility] ClinicComment on above: Ordered: 07/29/2024 End: 39-75-9127WC Thyroid glandUS THYROID/PARATHYROID Radiology Routine Multiple thyroid nodules 1 Occurrences starting 03/14/2025until 04/13/2026leveland ClinicComment on above:1 Occurrences starting 03/14/2025 until 04/13/2026 End: 96-34-4062GF Upper extremity vein - rightUS DVT UPPER RIGHT Radiology STAT Malignant neoplasm of overlapping sites of right lung (HCC) Pain of right upper arm Swelling of arm 1 Occurrences starting 12/14/2024 until 01/13/2026leveland ClinicComment on above:1 Occurrences starting 12/14/2024 until 01/13/2026 End: 91-68-5287GS Hip - bilateral JudetXR HIP SPECIAL 2V JUDET VIEWS Radiology Routine Metastatic cancer to bone (HCC) Lytic bone lesions on xray Lung mass 1 Occurrences starting 08/23/2024 until 6C[facility] ClinicComment on above:1 Occurrences starting 08/23/2024 until 09/22/2025 End: 77-81-2732VL Pelvis APXR PELVIS 1V AP Radiology Routine Metastatic cancer to bone (HCC) Lytic bone lesions on xray Lung mass 1 Occurrences starting 08/23/2024 until 6C[facility] ClinicComment on above:1 Occurrences starting 08/23/2024 until 09/22/2025 End: 90-46-5893WJ Scapula -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 Encounter - Catherine Laws RT(R) - 01/27/2025 7:39 AM EDT Sim scheduled for 02/02 9:00am Please schedule Est Pt New Problem with Dr Smart (30 min) at 8:30 Notify patient of appointments and that MARYLIN is out of the office arrival of 8:15 am [facility]07-10-2025 Telephone encounter Note* Telephone Encounter - [...] questions relating to this submission, please contact [facility] at [phone] [facility]07-10-2025 Telephone encounter Note* Telephone Encounter - [...] R Shoulder Thank you Emilia Cadet, RN [facility]07-10-2025 Instructions* Patient Instructions* Isaac Gracia MD - 01/26/2025 8:50 AM EDT Stop immunotherapy treatments We will start her on oral sotorasib Please make an appt with to discuss about radiation F/u in 2 weeks documented in this encounterGood Samaritan Hospital07-10-2025 [facility]Ohio[facility]07-10-2025 History of Present illness Narrative* Isaac Gracia MD - 01/26/2025 8:25 AM EDT Images from the original note were not included. PATIENT NAME: Ofe Saravia CLINIC NO.: [id number] ATTENDING PHYSICIAN: Isaac Gracia MD DATE OF [...] with Dr. Narayan from rad onc at [facility] who recommended palliative RT closer to home, at [facility]. 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 Stroke ([facility]) PAST SURGICAL HISTORY Procedure Laterality [...] Range Status 01/04/2025 8.7 % Final Abs Cameron Date Value Ref Range Status 01/04/2025 0.56 [...] which included preparing to see the patient, [id number] patient care, completing clinical documentation, performing a medically appropriate examination, counseling and educating the patient/family/caregiver, ordering medications, tests, or p rocedures, independently interpreting results (not separately reported), communicating results to the patient/family/caregiver, and care coordination (not separately reported). Isaac Gracia MD. Hematology and Oncology Services Provided at: [place], [place] CC: * Maris Lazo MA - 01/26/2025 8:24 AM EDT Patient does have a sty in her eye she wants to make sure it is nothing else. She would like to know scan results and where do they go from here. She wonders if her shoulder pain is cancer related. Maris Lazo MA documented in this encounterGood Samaritan Hospital07-10-2025 NoteOhio[facility]07-09-2025 NoteHNO ID: [id number] Author: CHELSEY LOWERY RN Service: ? Author Type: Registered Nurse Type: Progress Notes Filed: 02/11/2025 11:45 Note Text: Botox 100U with 1ml NaCl Lot [id number] Exp 04/2027[facility]07-09-20[facility] History of Present illness Narrative* Chelsey Lowery RN - 01/25/2025 10:50 AM EDT Botox 100U with 1ml NaCl Lot [id number] Exp 04/2027 documented in this encounterGood Samaritan Hospital07-08-2025 Telephone encounter Note * Telephone Encounter - Stephanie Ruiz MA - 01/24/2025 9:18 AM EDT Patient has an OTV appointment on 01/26. Please place lab orders. Stephanie Ruiz MA [facility]07-08-2025 Miscellaneous Notes* Telephone Encounter - Stephanie Ruiz MA - 01/24/2025 9:18 AM EDT Patient has an OTV appointment on 01/26. Please place lab orders. Stephanie Ruiz MA documented in this encounterGood Samaritan Hospital07-07-2025 NoteOhio[facility]07-07-2025 History of Present illness Narrative* Ghislaine Thakur [...] N/A Ghislaine Thakur RN documented in this encounterGood Samaritan Hospital07-02-2025 History of Present illness Narrative* Shantel [...] 805 PATIENT DISCHARGED TO: Ambulatory patient, left [place] department area. Is this a therapy: No A Diagnostic radioactive procedure has taken place, with no further precautions necessary other than routine body substance precautions. More information regarding radiation safety can be found usingthis link: [email or web address] SIGNATURE: RT Isa(Susie) PATIENT NAME: Ofe Saravia DATE: January 18, 2025 TIME: 8:23 AM PAGER/CONTACT #: documented in this encounterGood Samaritan Hospital07-02-2025 NoteOhio[facility]07-02-2025 NoteOhio[facility]06-23-2025 Telephone encounter Note* Telephone Encounter - Ghislaine Thakur RN - 01/09/2025 4:07 PM EDT Pt states her PCP manages her thyroid meds for her. Results faxed to Dr Clements and pt states she will call their office to schedule follow up. Ghislaine Thakur RN [facility] Work Phone: [phone] Miscellaneous Notes* Telephone Encounter - Ghislaine Thakur [...] increased. Ulisses Baum PA-C documented in this encounterGood Samaritan Hospital06-19-2025 Telephone encounter Note * Telephone Encounter - Ghislaine Thakur RN - 01/05/2025 1:09 PM EDT Attempted to reach pt. Mailbox is full on cell number, no answer/no voicemail set up on home phone number. Will try again later. Ghislaine Thakur RN [facility]06-19-2025 Telephone encounter Note* Telephone Encounter - Ulisses Baum PA-C - 01/05/2025 10:58 AM EDT Please call and inform patient her labs indicate she her TSH is elevated likely from immunotherapy.Who is managing her hypothyroidism? I see she is on levothyroxine 25 mcg. It will need increased. Ulisses Baum PA-C [facility] Work Phone: [phone] Miscellaneous Notes* Addendum Note - Carmelita Clemente [facility] - 01/04/2025 10:30 AM EDTAddended by: CARMELITA CLEMENTE on: 01/04/2025 01:40 PM Modules accepted: Orders documented in this encounterGood Samaritan Hospital06-18-2025 Note* Addendum Note - Carmelita Clemente [facility] - 01/04/2025 10:30 AM EDTAddended by: CARMELITA CLEMENTE on: 01/04/2025 01:40 PM Modules accepted: Orders [facility]06-18-2025 NoteHNO ID: [id number] Author: JOHN DESAI RN Service: ? Author Type: Registered Nurse Type: Progress Notes Filed: 01/04/2025 11:25 Note Text: Will add C6 Carbo taxol to today's treatment per Dr Gracia. John Desai RNOhiohealth Grant Medical Center06-18-2025 History of Present illness Narrative* John Desai RN - 01/04/2025 10:21 AM EDT Will add C6 Carbo taxol to today's treatment per Dr Gracia. John Desai RN documented in this encounterGood Samaritan Hospital06-18-2025 Instructions* Patient Instructions* Isaac Gracia MD - 01/04/2025 10:13 AM EDT Treatment today and in 3 weeks Ordered PET scan F/u in 3 weeks documented in this encounterGood Samaritan Hospital06-18-2025 History of Present illness Narrative* Isaac Gracia MD - 01/04/2025 10:00 AM EDT Images from the original note were not included. PATIENT NAME: Ofe Saravia [facility] NO.: [id number] ATTENDING PHYSICIAN: Isaac Gracia MD DATE OF [...] with Dr. Narayan from rad onc at [facility] who recommended palliative RT closer to home, at [facility]. 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 Stroke ([facility]) PAST SURGICAL HISTORY Procedure Laterality [...] Range Status 01/04/2025 8.7 % Final Abs Cameron Date Value Ref Range Status 01/04/2025 0.56 [...] which included preparing to see the patient, [id number] patient care, completing clinical documentation, performing a medically appropriate examination, counseling and educating the patient/family/caregiver, ordering medications, tests, or p rocedures, independently interpreting results (not separately reported), communicating results to the patient/family/caregiver, and care coordination (not separately reported). Isaac Gracia MD. Hematology and Oncology Services Provided at: [place], [place] CC: documented in this encounterCleveland [id number] NoteOhiohealth [facility] Center06-02-2025 Telephone encounter Note* Telephone Encounter - Ghislaine [...] faxed to PCP's office. Ghislaine Thakur RN [facility] Work Phone: [phone] Miscellaneous Notes* Telephone Encounter - Ghislaine Thakur [...] office. Ghislaine Thakur RN documented in this encounterGood Samaritan Hospital05-29-2025 Telephone encounter Note * Telephone Encounter - Ghislaine Thakur RN - 12/15/2024 2:53 PM EDT Call received from Vicki at [facility] who states pt's ultrasound was negative for DVT. She has faxed overresults and images were pushed through Ghislaine Thakur RN [facility] Work Phone: [phone] Miscellaneous Notes* Telephone Encounter - Ghislaine Thakur RN - 12/15/2024 2:53 PM EDT Call received from Vicki at [facility] who states pt's ultrasound was negative for DVT. She has faxed overresults and images were pushed through Ghislaine Thakur RN * Telephone Encounter - Ghislaine Thakur RN - 12/15/2024 1:53 PM EDT Call placed to [facility] and message left on their voicemail [...] be having STAT US done today @ [facility]. They are going to work in patient when she gets there after treatment today. Radiology will hold patient and call if results are positive. Wanda Ogden documented in this encounterGood Samaritan Hospital05-29-2025 Telephone encounter Note * Telephone Encounter - Ghislaine Thakur RN - 12/15/2024 1:53 PM EDT Call placed to [facility] and message left on their voicemail to call our office as soon aspossible with a verbal read. Ghislaine Thakur, RN [facility]05-29-2025 Telephone encounter Note* Telephone Encounter - Ann Hood - 12/15/2024 9:11 AM EDT No results yet. [facility]05-29-2025 Telephone encounter Note* Telephone Encounter - Ulisses Baum PA-C - 12/15/2024 9:05 AM EDT Can we get these results please? Ulisses [facility]05-28-2025 Telephone encounter Note* Telephone Encounter - Wanda Ogden - 12/14/2024 10:58 AM EDT Patient will be having STAT US done today @ [facility]. They are going to work in patient when she gets there after treatment today. Radiology will hold patient and call if results are positive. Wanda Ogedn [facility]05-28-2025 NoteOhio[facility]05-28-2025 History of Present illness Narrative* Joyce Bean RN - 12/14/2024 10:46 AM EDT Mg reviewed with MM, please give magnesium sulfate 2gm IV x 1 with tx today. Pharmacy to enter. Joyce Bean RN documented in this encounterGood Samaritan Hospital05-28-2025 History of Present illness Narrative* Ulisses Baum PA-C - 12/14/2024 10:00 AM EDT Images from the original note were not included. PATIENT NAME: Ofe Saravia CLINIC NO.: [id number] ATTENDING PHYSICIAN: Isaac Gracia MD DATE OF [...] with Dr. Narayan from rad onc at [facility] who recommended palliative RT closer to home, at [facility]. Venus is a former smoker, having quit [...] 20 mg tablet TAKE 1 TABLET BY [facility] EVERY MORNING gabapentin (NEURONTIN) 100 mg capsule [...] abducens nerve palsy 06/01/2008 Stroke ([facility]) PAST SURGICAL HISTORY Procedure Laterality [...] Range Status 12/14/2024 11.7 % Final Abs Cameron Date Value Ref Range Status 12/14/2024 0.37 [...] which included preparing to see the patient, [id number] patient care, completing clinical documentation, performing a medically appropriate examination, counseling and educating the patient/family/caregiver, ordering medications, tests, or p rocedures, independently interpreting results (not separately reported), communicating results to the patient/family/caregiver, and care coordination (not separately reported). Ulisses Baum PA-C Hematology and Oncology Services Provided at: [place], [place] CC: documented in this encounterGood Samaritan Hospital05-28-2025 NoteOhiohealth [facility] Medical Center05-07-2025 Instructions* Patient Instructions* Vincent Estrada APRN.SKYLAR - 11/23/2024 1:46 PM EDT Vincent Estrada CNP Department of Palliative and Supportive Care Palliative Care - Specialty services in symptom management and support For questions or prescription refills, call: [phone] Thursday - Thursday 9AM-5PM TONY Mejia, RN - Neonatal Nurse Practitioner Please call 3-5 days in advance for medication refills Evenings, Weekends, Holidays: [phone] (ask for palliative medicine on-call provider) For appointments, cancellations or reschedule, call: [phone] documented in this encounterGood Samaritan Hospital05-07-2025 NoteOhiohealth [facility] Center05-07-2025 History of Present illness Narrative* Vincent Estrada APRN.PARKING LOT ATTENDANT AND CASHIER - 11/23/2024 12:36 PM EDT Images from [...] stable she and her have been enjoying [employer] hunting. No GI or distress. No shortness of breath or edema or nonproductive cough Negative significant emotional, spiritual, or sleep disturbance Modified ESAS ([place] Symptom Assessment Scale) Information Provided By: Patient [...] which included preparing to see the patient, qfeu-sj-[id number] patient care, completing clinical documentation, obtaining and/or [...] 3 Months in person Vincent Estrada NP, AUTOMOBILE BODY CUSTOMIZER.PARKING LOT ATTENDANT AND CASHIER November 23, 2024 12:38 PM This note may have been partially generated using the [employer] voice recognition system. While every effort was made to correct voice recognition errors, kindly be aware that some errors may occasionally occur. documented in this encounterGood Samaritan Hospital05-07-2025 Instructions* Patient Instructions* Isaac Gracia MD - 11/23/2024 10:18 AM EDT Treatment today and in 3 weeks Make a follow up appt with palliative care F/u in 3 weeks documented in this encounterGood Samaritan Hospital05-07-2025 History of Present illness Narrative* Isaac Gracia MD - 11/23/2024 10:00 AM EDT Images from the original note were not included. PATIENT NAME: Ofe Saravia CLINIC NO.: [id number] ATTENDING PHYSICIAN: Isaac Gracia MD DATE OF SERVICE: 11/23/[address] Sarabjit Crowley [address] [facility] [address] thank you for referring Ofe Saravia for [...] with Dr. Narayan from rad onc at [facility] who recommended palliative RT closer to home, at [facility]. Venus is a former smoker, having quit [...] 20 mg tablet TAKE 1 TABLET BY [facility] EVERY MORNING gabapentin (NEURONTIN) 100 mg capsule [...] Range Status 11/02/2024 12.3 % Final Abs Cameron Date Value Ref Range Status 11/02/2024 0.74 [...] spent [address] Sarabjit Crowley [address] [facility] [address] thank you for allowing me to participate in Ofe Saravia care, if there are any questions or concerns please do not hesitate to contact me at the number below. Isaac Gracia MD. Hematology and Oncology Services Provided at: [place], [place] CC: documented in this encounterGood Samaritan Hospital05-07-2025 NoteOhiohealth [facility] Medical Center05-06-2025 History of Present illness Narrative* THAD Rosa - 11/22/2024 1:20 PM EDT Subjective Ofe K Rinner is a 69 y.o. 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/2009 Coordination impairment BRAIN SX - 2009 Degenerative disc disease, cervical 02/08/2010 Degenerative disc disease, lumbar 01/30/2014 Depression ([facility]) 02/09/2008 Dizziness 08/11/2018 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 H/O section H/O eye surgery right; 2006, 2007 Hemangioma 08/09/2009 History of medical problems thyroid Lack of coordination 01/25/2008 Migraine 05/26/2017 Neck pain 08/11/2018 Other disorders of facial nerve 02/09/2008 Panic attacks ([facility]) Sleep disturbance 01/05/2013 Snoring 07/16/2015 Stroke ([facility]) 05/26/2017 Tension type headache 08/11/2018 Trigeminal neuralgia ([facility]) 10/20/2014 Past Surgical History: Procedure [...] triceps, wrist extensors, wrist extensors, wrist flexor, 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 RLE Strength illopsoas, quadriceps, tibialis [...] above. She previouslyfollowed with Dr. Monterroso at [facility] and neuro ophthalmology. Hypnopompic hallucination History [...] has tried botox in the past at [facility]. She currently does not have facial [...] new or worsening symptoms documented in this encounterSaint Louis University [id number] Telephone encounter Note* Telephone Encounter - Maris Lazo MA - 11/16/2024 1:37 PM EDT Patient has an appt on 11/23/24 for treatment, would you like labs? If so place orders. Maris Lazo MA [facility]04-30-2025 Miscellaneous Notes* Telephone Encounter - Maris Chau MA - 11/16/2024 1:37 PM EDT Patient has an appt on 11/23/24 for treatment, would you like labs? If so place orders. Maris Lazo MA documented in this encounterGood Samaritan Hospital04-29-2025 History of Present illness Narrative* Shantel [...] 810 PATIENT DISCHARGED TO: Ambulatory patient, left [place] department area. Is this a therapy: No A Diagnostic radioactive procedure has taken place, with no further precautions necessary other than routine body substance precautions. More information regarding radiation safety can be found usingthis link: [email or web address] SIGNATURE: RT Isa(R) PATIENT NAME: Ofe Saravia DATE: November 15, 2024 TIME: 9:14 AM PAGER/CONTACT #: documented in this encounterGood Samaritan Hospital04-29-2025 NoteOhio[facility]04-29-2025 NoteOhiohealth Grant Medical Center04-22-[address] [facility] [place] [address] [place] [address] Ultrasound Report Signed Patient: Ofe Saravia MR#: [id number] : 1955 Acct:[id number] Age/Sex: 69 / F ADM Date: 5 Loc: Room: Type: [facility] Attending Dr: Asya Clements JR, DO Ordering [...] David Mcclain MD11/08/2024 2:01 PM Dictation Location: [place] [address] Tech: Vicki Wade Transcribed By: COLETTE 11/08/241400 Dictated By: David Mcclain MD 11/08/241400 Signed By: 11/08/24 140 [facility] Work Phone: 1(773) 121-724904-16-2025 Instructions* Patient Instructions* Isaac Gracia MD - 11/02/2024 9:09 AM EDT Treatment today and in 3 weeks Ordered PET scan F/u in 3 weeks documented in this encounterGood Samaritan Hospital04-16-2025 History of Present illness Narrative* Isaac Gracia MD - 11/02/2024 9:00 AM EDT Images from the original note were not included. PATIENT NAME: Ofe Saravia [facility] NO.: [id number] ATTENDING PHYSICIAN: Isaac Gracia MD DATE OF SERVICE: 11/02/24. Dear Dr. Sarabjit Crowley [address] [facility] [address] thank you for referring Ofe Saravia for an opinion regarding Lung cancer. Some of the elements of this note have been copied from Christy Bwoers previous progress note dated October 12, 2024 [...] recommended palliative RT closer to home, at [facility]. Venus is a former smoker, having quit [...] Range Status 10/12/2024 7.2 % Final Abs Cameron Date Value Ref Range Status 10/12/2024 1.03 [...] in [address] Sarabjit Crowley [address] [facility] [address] thank you for allowing me to participate in Ofe Saravia care, if there are any questions or concerns please do not hesitate to contact me at the number below. Isaac Gracia MD. Hematology and Oncology Services Provided at: [place], [place] CC: documented in this encounterGood Samaritan Hospital04-16-2025 NoteOhiohealth Grant Medical Center04-16-2025 Telephone encounter Note* Telephone Encounter - Isaac Gracia MD - 11/02/2024 8:27 AM EDT I ordered labs. Thanks [facility]04-16-2025 Miscellaneous Notes* Telephone Encounter - Isaac Gracia MD - 11/02/2024 8:27 AM EDT I ordered labs. Thanks * Telephone Encounter - Asia Silverman RN - 11/02/2024 8:22 AM EDT Venus is scheduled for chemo today with no lab orders. Please place orders vinnie. Thanks Asia Silverman RN documented in this encounterGood Samaritan Hospital04-16-2025 Telephone encounter Note * Telephone Encounter - Asia Silverman RN - 11/02/2024 8:22 AM EDT Venus is scheduled for chemo today with no lab orders. Please place orders vinnie. Thanks Asia Silverman RN [facility]03-26-2025 NoteOhiohealth Grant Medical Center03-26-2025 History of Present illness Narrative* Danielle Castellon [...] DPOA-CH agent. ERIK Parker documented in this encounterGood Samaritan Hospital03-26-2025 NoteOhiohealth Grant Medical Center03-26-2025 History of Present illness Narrative* Ann-Marie Gomez APRN.PARKING LOT ATTENDANT AND CASHIER - 10/12/2024 9:18 AM EDT Images from the original note were not included. PATIENT NAME: Ofe Saravia CLINIC NO.: [id number] ATTENDING PHYSICIAN: Isaac Gracia MD DATE OF SERVICE: .10/12/2024 (Christy). Dear Dr. Sarabjit Crowley [address] [facility] [address] thank you for referring Ofe Saravia for [...] with Dr. Narayan from rad onc at [facility] who recommended palliative RT closer to home, at [facility]. Venus is a former smoker, having quit [...] Range Status 10/12/2024 7.2 % Final Abs Cameron Date Value Ref Range Status 10/12/2024 1.03 [...] answered in detail Dear Dr. Sarabjit Crowley [address] [facility] [address] thank you for allowing me to participate in Ofe Saravia care, if there are any questions or concerns please do not hesitate to contact me at the number below. . Ann-Marie Gomez APRN, JAVA ANDROID DEVELOPER-C, OCN Hematology and Oncology Services Provided at: [place], [place] CC: documented in this encounterGood Samaritan Hospital03-24-2025 History of Present illness Narrative* THAD Rosa - 10/10/2024 12:40 PM EDT Subjective Ofe Saravia is a 69 y.o. 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/2009 Coordination impairment BRAIN SX - 2009 Degenerative disc disease, cervical 02/08/2010 Degenerative disc disease, lumbar 01/30/2014 Depression ([facility]) 02/09/2008 Dizziness 08/11/2018 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 H/O section H/O eye surgery right; 2006, 2008 Hemangioma 08/09/2009 History of medical problems thyroid Lack of coordination 01/25/2008 Migraine ([facility]) 05/26/2017 Neck pain 08/11/2018 Other disorders of facial nerve 02/09/2008 Panic attacks ([facility]) Sleep disturbance 01/05/2013 Snoring 07/16/2015 Stroke ([facility]) 05/26/2017 Tension type headache 08/11/2018 Trigeminal neuralgia ([facility]) 10/20/2014 Past Surgical History: Procedure Laterality Date [...] triceps, wrist extensors, wrist extensors, wrist flexor, 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 RLE Strength illopsoas, quadriceps, tibialis [...] above. She previouslyfollowed with Dr. Monterroso at [facility] and neuro ophthalmology. Hypnopompic hallucination History [...] has tried botox in the past at [facility]. She weaned gabapentin but feels her [...] for tremor I reviewed brain MRI from [facility] 09/01/2024 Continue propranolol 60mg PO at bedtime for anxiety, headache prevention, and tremor per PCP I counseled patient on potential medication side effects Continue following PCP for BP management Patient to follow up with this clinic in 6-8 weeks or sooner for new or worsening symptoms documented in this encounterSaint Louis University HospitalTavmlwdgis09-12-5273 NoteOhiohealth Grant Medical Center03-17-2025 History of Present illness Narrative* Juan C [...] PM EST Status: Post-menopausal. documented in this encounterGood Samaritan Hospital03-14-2025 Telephone encounter Note * Telephone Encounter [...] to her [facility] in [place]. Reinforced CURRENT treatment education based on current and anticipated symptoms Teach back method performed: YES Patient verbalizes when to seek medical attention for new/worsening symptoms. Office and on-call numbers reviewed with patient. Jazmyne Bryson RN September 30, 2024 1:21 PM [facility]03-14-2025 Miscellaneous Notes* Telephone Encounter - Jazmyne [...] to her [facility] in [place]. Reinforced CURRENT treatment education based on current [...] Sent to [facility] in [place] * Telephone Encounter - Jazmyne Bryson RN - 09/30/2024 9:05 AM EDT Care Coordination Triage Note Cancer [place] Situation: Patient reports having recent claustrophobic/panic feeling [...] experiencing severe panic attacks. Return call to [phone] documented in this encounterGood Samaritan Hospital03-14-2025 Note* Addendum Note - Vincent Estrada APRN.CNP - 09/30/2024 12:56 PM EDTAddended by: VINCENT ESTRADA on: 09/30/2024 12:56 PM Modules accepted: Orders [facility]03-14-2025 Telephone encounter Note* Telephone Encounter - Vincent Estrada APRN.CNP - 09/30/2024 12:55 PM EDT I sent a small rx for Ativan for Panic, she can take 1 every 12 hours prn panic and follow up with PCP when able Sent to [facility] in [place] [facility]03-14-2025 Telephone encounter Note* Telephone Encounter - Jazmyne Bryson RN - 09/30/2024 9:05 AM EDT Care Coordination Triage Note Cancer [place] Situation: Patient reports having recent claustrophobic/panic feeling [...] Bryson RN September 30, 2024 9:05 AM [facility]03-14-2025 Telephone encounter Note* Telephone Encounter - Eneida aJvier V - 09/30/2024 8:52 AM EDT Patient has been experiencing severe panic attacks. Return call to [phone] [facility]03-13-2025 NoteOhiohealth Grant Medical Center03-13-2025 History of Present illness Narrative* Danielle Castellon LSW - 09/29/2024 1:41 PM EDT Patient's name appears on the [facility] First Time Treatment List (3 week lookback). MARCOS was unable toreach Patient by phone. MARCOS will plan to meet with Patient at a future visit to review the services offered by this MARCOS. ERIK Parker Goals of Care Advance Directives are on file. Maximino Saravia () is the agent. documented in this encounterGood Samaritan Hospital03-11-2025 Telephone encounter Note * Telephone Encounter - Tiffanie Rangel MA - 09/27/2024 11:19 AM EDT Patient coming in Thursday10/12/24 for treatment visit. Please add lab orders, Tiffanie demarco MA [facility]03-11-2025 Miscellaneous Notes* Telephone Encounter - Tiffanie Rangel MA - 09/27/2024 11:19 AM EDT Patient coming in Thursday10/12/24 for treatment visit. Please add lab orders, Tiffanie demarco MA documented in this encounterGood Samaritan Hospital03-07-2025 Instructions* Patient Instructions* Vincent Estrada APRN.CNP - 2024 11:27 AM EST Vincent Estrada CNP Department of Palliative and Supportive Care Palliative Care - Specialty services in symptom management and support For questions or prescription refills, call: [phone] Thursday - Thursday 9AM-5PM TONY Mejia, RN - Neonatal Nurse Practitioner Please call 3-5 days in advance for medication refills Evenings, Weekends, Holidays: [phone] (ask for palliative medicine on-call provider) For appointments, cancellations or reschedule, call: [phone] documented in this encounterGood Samaritan Hospital03-07-2025 History of Present illness Narrative* Vincent [...] emotional, spiritual, or sleep disturbance Modified ESAS ([place] Symptom Assessment Scale) Information Provided By: Patient [...] ear normal. Nose: Nose normal. Mouth/Throat: Lips: [place]. Mouth: Mucous membranes are moist. No oral [...] was identified. 09/28/2024 by Vincent Estrada, JUDY, AUTOMOBILE BODY CUSTOMIZER.PARKING LOT ATTENDANT AND CASHIER Assessment & Plan (Z51.5) Palliative care by specialist (primary encounter diagnosis) - Reviwed philosophy of palliative medicine and hospice to family. - Discussed services offered by [facility] and hospice - Provided support to family [...] 4 Weeks in person Vincent Estrada NP, AUTOMOBILE BODY CUSTOMIZER.PARKING LOT ATTENDANT AND CASHIER September 28, 2024 9:03 AM I spent a total of 35 minutes on the date of the service which included preparing to see the patient, [id number] patient care, completing clinical documentation, obtaining and/or reviewing separately obtained history, performing a medically appropriate examination, counseling and educating the pat ient/family/caregiver, ordering medications, tests, or procedures, communicating with other HCPs (not separately reported), independently interpreting results (not separately reported), communicatingresults to the patient/family/caregiver, and care coordination (not separately reported). This note may have been partially generated using the [employer] voice recognition system. While every effort was made to correct voice recognition errors, kindly be aware that some errors may occasionally occur. documented in this encounterGood Samaritan Hospital03-07-2025 NoteOhiohealth Grant Medical Center03-06-2025 History of Present illness Narrative* Ann-Marie Gomez APRN.CNP - 09/22/2024 10:00 AM EST Images from the original note were not included. PATIENT NAME: Ofe Saravia CLINIC NO.: [id number] ATTENDING PHYSICIAN: Isaac Gracia MD DATE OF SERVICE: 09/22/2024 (Christy). Dear Dr. Sarabjit Crowley [address] [facility] [address] thank you for referring Ofe Saravia for [...] with Dr. Narayan from rad onc at [facility] who recommended palliative RT closer to home, at [facility]. Venus is a former smoker, having quit [...] Range Status 09/14/2024 5.4 % Final Abs Cameron Date Value Ref Range Status 09/14/2024 0.72 [...] improvement or worsening. Dear Dr. Sarabjit Crowley [address] [facility] [address] thank you for allowing me to participate in Ofe Saravia care, if there are any questions or concerns please do not hesitate to contact me at the number below. . Ann-Marie Gomez APRN, JAVA ANDROID DEVELOPER-C, OCN Hematology and Oncology Services Provided at: [place], [place] CC: documented in this encounterGood Samaritan Hospital03-06-2025 NoteOhiohealth Grant Medical Center03-05-2025 Telephone encounter Note* Telephone Encounter - Wanda Ogden - 09/21/2024 1:15 PM EST Per patient's appts, she is scheduled for tomorrow with Ann-Marie. Thanks!! Wanda Ogden [facility]03-05-2025 Miscellaneous Notes* Telephone Encounter - Wanda [...] RV today. Wanda Ogden documented in this encounterGood Samaritan Hospital03-05-2025 Telephone encounter Note * Telephone Encounter [...] Thursday to be seen. Ghislaine Thakur RN [facility] Work Phone: [phone] Telephone encounter Note* Telephone Encounter - Isaac Gracia MD - 09/21/2024 11:56 AM EST She might be in the hospital. We told her to go to ER 2 days ago. Thanks. [facility]03-05-2025 Telephone encounter Note* Telephone Encounter - Wanda Ogden - 09/21/2024 11:52 AM EST Patient did not show for RV today. Wanda Ogden [facility]03-04-2025 Telephone encounter Note* Telephone Encounter - Ghislaine Thakur RN - 09/20/2024 11:38 AM EST EMERGENCY ROOM CALL BACK Today's date: September 20, 2024 Patient identified by name and date of . YES Primary Cancer Diagnosis: lung cancer Reason for Emergency Room Visit: shortness of breath Time of day presented to Emergency Room afternoon If Thu-Thursday during business hours: Did you contact your Neonatal Nurse Practitioner/Provider? Yes, told to present to emergency department Patient with any new symptom issues: No Psychosocial Risk Factors: None FOLLOW UP Patient reminded of her follow-up appointment with [facility] providerAnn-Marie tomorrow: Yes Next Neonatal Nurse Practitioner outreach with patient scheduled? prn Discussed with [...] next outreach appointment? YES Ghislaine Thakur RN [facility] Work Phone: [phone] Miscellaneous Notes* Telephone Encounter - Ghislaine Thakur RN - 09/20/2024 11:38 AM EST EMERGENCY ROOM CALL BACK Today's date: September 20, 2024 Patient identified by name and date of . YES Primary Cancer Diagnosis: lung cancer Reason for Emergency Room Visit: shortness of breath Time of day presented to Emergency Room afternoon If Thu-Thursday during business hours: Did you contact your Neonatal Nurse Practitioner/Provider? Yes, told to present to emergency department Patient with any new symptom issues: No Psychosocial Risk Factors: None FOLLOW UP Patient reminded of her follow-up appointment with [facility] providerAnn-Marie tomorrow: Yes Next Neonatal Nurse Practitioner outreach with patient scheduled? prn Discussed with [...] not sure if he'll take her to [place] or [facility] but will decide while he's getting her [...] states he will take her back to [facility] ER. Ghislaine Thakur RN documented in this encounterGood Samaritan Hospital03-03-2025 Telephone encounter Note * Telephone Encounter [...] after hours number protocol. Ghislaine Thakur RN [facility] Work Phone: 1(575) 578-519803-03-2025 Miscellaneous Notes* Telephone Encounter - Ghislaine Thakur [...] protocol. Ghislaine Thakur RN documented in this encounterGood Samaritan Hospital03-03-2025 Telephone encounter Note * Telephone Encounter - Ghislaine Thakur RN - 09/19/2024 12:11 PM EST Pt's calls back and has pt on speaker phone. Pt is short of breath over the phone and not able to form complete sentences without needing to take a breath for more air. will be takingpt to the ER. He's not sure if he'll take her to [facility] or [facility] but will decide while he's getting her to the car. Ghislaine Thakur RN [facility]03-03-2025 Telephone encounter Note* Telephone Encounter - Isaac Gracia MD - 09/19/2024 12:08 PM EST Ok fine. Please tell her to go to ER. Thanks [facility]03-03-2025 Telephone encounter Note* Telephone Encounter - [...] states he will take her back to [facility] ER. Ghislaine Thakur, RN [facility]02-26-2025 Note* Addendum Note - Isaac Gracia MD - 09/14/2024 2:27 PM ESTAddended by: ISAAC GRACIA on: 09/14/2024 02:27 PM Modules accepted: Orders [facility]02-26-2025 Miscellaneous Notes* Addendum Note - Isaac Gracia MD - 09/14/2024 2:27 PM ESTAddended by: ISAAC GRACIA on: 09/14/2024 02:27 PM Modules accepted: Orders documented in this encounterGood Samaritan Hospital02-26-2025 NoteHNO ID: [id number] Author: KAMLA BUSH RN Service: ? Author Type: Registered Nurse Type: Progress Notes Filed: 09/14/2024 16:04 Note Text: Hold Xgeva today per Dr. Gracia. Needs dental clearance. Tx nurse informed. Kamla Bush RNOhiohealth Grant Medical Center02-26-2025 History of Present illness Narrative* Kamla Bush RN - 09/14/2024 9:35 AM EST Hold Xgeva today per Dr. Gracia. Needs dental clearance. Tx nurse informed. Kamla Bush RN documented in this encounterGood Samaritan Hospital02-26-2025 Instructions* Patient Instructions* Isaac Gracia MD - 09/14/2024 9:14 AM EST Treatment today F/u in 1 week documented in this encounterGood Samaritan Hospital02-26-2025 NoteOhiohealth Grant Medical Center02-26-2025 History of Present illness Narrative* Isaac Gracia MD - 09/14/2024 8:43 AM EST Images from the original note were not included. PATIENT NAME: Ofe Saravia CLINIC NO.: [id number] ATTENDING PHYSICIAN: Isaac Gracia MD DATE OF SERVICE: September 14, [address] Sarabjit Crowley [address] [facility] [address] thank you for referring Ofe Saravia for [...] with Dr. Narayan from rad onc at [facility] who recommended palliative RT closer to home, at [facility]. Venus is a former smoker, having quit [...] Range Status 09/14/2024 5.4 % Final Abs Cameron Date Value Ref Range Status 09/14/2024 0.72 [...] in [address] Sarabjit Crowley [address] [facility] [address] thank you for allowing me to participate in Ofe Saravia care, if there are any questions or concerns please do not hesitate to contact me at the number below. I spent a total of 30 minutes on the date of the service which included preparing to see the patient, jxzf-ip-qxns patient care, completing clinical documentation, obtaining and/or reviewing separately obtained history, performing a medically appropriate examination, counseling and educating the pat ient/family/caregiver, ordering medications, tests, or procedures, communicating with other HCPs (not separately reported), independently interpreting results (not separately reported), communicatingresults to the patient/family/caregiver, and care coordination (not separately reported). Isaac Gracia MD. Hematology/Medical Oncology [facility] [phone] CC: documented in this encounterGood Samaritan Hospital02-25-2025 Telephone encounter Note * Telephone Encounter - Ghislaine Thakur RN - 09/13/2024 11:24 AM EST DISCHARGE CALL BACK Today's date: September 13, 2024 Notified of Pt discharge by: previous telephone encounter Patient discharged on 09/12/24 from [facility] to Home Primary Cancer Diagnosis: lung cancer Admitting Diagnosis: anemia, fever, hx lung cancer, loose stools Discharge Summary/SBAR reviewed: Yes Handoff Discussed with Transitional Neonatal Nurse Practitioner: No, unavailable Psychosocial Risk Factors: Yes: Anxious/Depressed [...] 48 hours of discharge Ghislaine Thakur RN [facility] Work Phone: [phone]) 131-960402-25-2025 Miscellaneous Notes* Telephone Encounter - Ghislaine Thakur RN - 09/13/2024 11:24 AM EST DISCHARGE CALL BACK Today's date: September 13, 2024 Notified of Pt discharge by: previous telephone encounter Patient discharged on 09/12/24 from [facility] to Home Primary Cancer Diagnosis: lung cancer Admitting Diagnosis: anemia, fever, hx lung cancer, loose stools Discharge Summary/SBAR reviewed: Yes Handoff Discussed with Transitional Neonatal Nurse Practitioner: No, unavailable Psychosocial Risk Factors: Yes: Anxious/Depressed [...] Yes Patient reminded of follow-up appointment with [facility] provider, Dr Flanagan on 09/14/24: Yes Discussed [...] discharge Ghislaine Thakur RN documented in this encounterGood Samaritan Hospital02-24-2025 Discharge summary Author Agatha Martinez [facility] HospitalNote Date/TimeFebruary 2024 2:05pm [place] [address] Discharge Summary Signed Patient: Ofe Saravia MR#: [id number] : 1955 Acct:[id number] Age/Sex: 68 / F Adm Date: 5 Loc: Room: [address] [place] [address]: Agtaha Martinez MD Copies to: Asya Clements Jr, [...] to Oncology Routine Comment: Consulting Provider: S[facility] Reason For Exam: lung [...] deficits and lung cancer being treated by [facility] who presented to the ER this [...] Patient Ordered By: Agatha Martinez Follow Up: [facility] [Outside] - 09/14/24 8:45 am (Follow-up with Dr. Flanagan, call office to reschedule if needed. ) Asya Clements JR, DO [Primary Care Provider] - (Left message with office staff to call you to arrange a post-hospital follow-up appointment. Recommend follow-up within 3-5 days of discharge. ) Continuity of Care Document Health Concerns: A [facility] screening has identified you as FRAIL or [...] Strong:Four Ways to Beat the Frailty Risk https://www.[facility].org/health/uugbeklp-sgr-qynxbblcbd/st pz-seulwj-jngk- ybgo-fb-qpol-xyy-ynvcmxu-ynam Exam Physical Exam Vital Signs: Temp Pulse [...] signed by Agatha Martinez MD> 09/12/24 1405 [facility] Work Phone: 1([phone]) 747-533902-24-2025 Telephone encounter Note* Telephone Encounter - Ghislaine Thakur RN - 09/12/2024 3:59 PM EST Call placed to Kayla at [facility] who states pt was discharged home this afternoon. She states pt continues to spike fevers, most recent one this morning >103. She states pt takes tylenol and her temperature normalizes. Pt's cultures have all come back negative. Pt was not discharged on antibiotics, and was told to take tylenol prn. Pt has follow up here on Thursday morning at 845. Ghislaine Thakur RN [facility] Work Phone: 1(703) 449-815502-24-2025 Miscellaneous Notes* Telephone Encounter - Ghislaine Thakur RN - 09/12/2024 3:59 PM EST Call placed to Kayla at [facility] who states pt was discharged home this [...] AM EST Call placed to Kayla at [facility] who states pt has been spiking fevers [...] as she will still be admitted to [facility]. Thanks Ghislaine Thakur RN * Telephone Encounter - Ghislaine Thakur RN - 09/07/2024 9:37 AM EST Pt admitted to 4T at [facility]. Spoke with dietary supervisor and she will have pt's nurse call our office back. Ghislaine Thakur RN * Telephone Encounter - Ghislaine Thakur RN - 09/06/2024 4:20 PM EST Pt's notified and he will be taking pt to [facility]. Ghislaine Thakur RN * Telephone Encounter - [...] advise Ghislaine Thakur RN [facility] Discharge summary [address] [address] Discharge Summary Signed Patient: Ofe Saravia MR#: [id number] : 1955 Acct:[id number] Age/Sex: 68 / F Adm Date: 5 Loc: Room: [address] [place] [address]: Agatha Martinez MD Copies to: [...] Consult to Oncology Routine Comment: Consulting Provider: [facility] Reason For Exam: lung ca, [...] deficits and lung cancer being treated by [facility] who presented to the ER this [...] Patient Ordered By: Agatha Martinez Follow Up: [facility] [Outside] - 09/14/24 8:45 am (Follow-up with Dr. Flanagan, call office to reschedule if needed. ) Asya Clements JR, DO [Primary Care Provider] - (Left message with office staff to call you to arrange a post-hospital follow-up appointment. Recommend follow-up within 3-5 days of discharge. ) Continuity of Care Document Health Concerns: A [facility] screening has identified you as FRAIL or [...] Strong:Four Ways to Beat the Frailty Risk https://www.[facility].org/health/hfuyaeyf-gjk-abpmjijozq/st tp-viybgv-ehyk- yvkr-pn-mlos-mxc-qhlfmjw-pexu Exam Physical Exam Vital Signs: Temp Pulse [...] 09/12/24 10 52 Signed By: 09/12/24 1405 [facility]02-24-2025 Progress note Author Elizabeth Elizabeth [facility] HospitalNote Date/TimeFebruary 2024 9:05am [place] [address] Infect. Disease Progress Note Signed Patient: Ofe Saravia MR#: [id number] : 1955 Acct:[id number] Age/Sex: 68 / F Adm Date: 5 Loc: Room: [address] [place] [address] Type: ADM IN Attending Dr: Agatha Martinez [...] 325 Mg Tablet) 650 mg PO Q6H [facility] Stop: 09/10/25 15:59 Last Admin: 09/12/24 07:29 Dose: 650 mg Ezetimibe (Ezetimibe 10 Mg Tablet) 5 mg PO QAM [facility] Stop: 09/10/25 08:59 Last Admin: 09/12/24 08:16 Dose: 5 mg Enoxaparin Sodium (Enoxaparin 40 Mg/0.4 Ml Syringe) 40 mg SUBCUT DAILY@10 [facility] Stop: 09/07/25 09:59 Last Admin: 09/11/24 10:19 Dose: 40 mg Fluoxetine HCl (Fluoxetine 20 Mg Capsule) [facility] [place]: 09/09/25 09:39 Last Admin: 09/12/24 08:16 Dose: 20 mg Hydromorphone HCl (Hydromorphone 0.5 Mg/0.5 Ml Syringe) 0.5 mg IV-PUSH Q4H PRN PRN Reason: Pain Scale 8 - 10 Last Admin: 09/12/24 07:29 Dose: 0.5 mg Ferric Sodium Gluconate Complex 125 mg/ Sodium Chloride 110 mls @ 110 mls/hr IVQAM [facility] Stop: 09/09/25 19:29 Last Infusion: 09/11/24 11:10 Dose: Infused Levothyroxine Sodium (Levothyroxine 25 Mcg Tablet) 25 mcg PO QHS [facility] Stop: 09/09/25 21:59 Last Admin: 09/12/24 00:46 [...] signed by MD Elizabeth Elizabeth> 09/12/24 0905 [facility] Work Phone: 1([phone]) 390-926002-24-2025 [place] [address] Infect. Disease Progress Note Signed Patient: Ofe Saravia MR#: [id number] : 1955 Acct:[id number] Age/Sex: 68 / F Adm Date: 5 Loc: Room: [address] [place] [address] Type: ADM IN Attending Dr: Agatha Martinez [...] 325 Mg Tablet) 650 mg PO Q6H [facility] Stop: 09/10/25 15:59 Last Admin: 09/12/24 07:29 Dose: 650 mg Ezetimibe (Ezetimibe 10 Mg Tablet) [facility] [place]: 09/10/25 08:59 Last Admin: 09/12/24 08:16 Dose: 5 mg Enoxaparin Sodium (Enoxaparin 40 Mg/0.4 Ml Syringe) 40 mg SUBCUT DAILY@10 [facility] Stop: 09/07/25 09:59 Last Admin: 09/11/24 10:19 Dose: 40 mg Fluoxetine HCl (Fluoxetine 20 Mg Capsule) [facility] Stop: 09/09/25 09:39 Last Admin: 09/12/24 08:16 Dose: 20 mg Hydromorphone HCl (Hydromorphone 0.5 Mg/0.5 Ml Syringe) 0.5 mg IV-PUSH Q4H PRN PRN Reason: Pain Scale 8 - 10 Last Admin: 09/12/24 07:29 Dose: 0.5 mg Ferric Sodium Gluconate Complex 125 mg/ Sodium Chloride 110 mls @ 110 mls/hr IVQAM [facility] Stop: 09/09/25 19:29 Last Infusion: 09/11/24 11:10 Dose: Infused Levothyroxine Sodium (Levothyroxine 25 Mcg Tablet) 25 mcg PO QHS [facility] Stop: 09/09/25 21:59 Last Admin: 09/12/24 00:46 [...] MD 09/12/24 0859 Signed By: 09/12/24 0905 [facility]02-23-2025 Progress note Author Agatha Martinez [facility]Note Date/TimeFebruary 2024 1:46pm [place] [address] Hospitalist Progress Note Signed Patient: Ofe Saravia MR#: [id number] : 1955 Acct:[id number] Age/Sex: 68 / F Adm Date: 5 Loc: Room: [address] [place] [address] Type: ADM IN Attending Dr: Agatha Martinez [...] <Electronically signed by Agatha Martinez MD> 09/11/24 6672 [facility] Work Phone: 1(109) [phone] [place] [address] Hospitalist Progress Note Signed Patient: Ofe Saravia MR#: [id number] : 1955 Acct:[id number] Age/Sex: 68 / F Adm Date: 5 Loc: Room: [address] [place] [address] Type: ADM IN Attending Dr: Agatha Martinez [...] Tablet PO 09/10/25 08:59 5 mg QAM [facility] Administration Enoxaparin Sodium 40 mg 09/07/24 10:00 [...] 09/11/24 13 43 Signed By: 09/11/24 1346 [facility]02-23-2025 Progress note Author Elizabeth Elizabeth [facility] HospitalNote Date/TimeFebruary 2024 9:53am [address] [address] Infect. Disease Progress Note Signed Patient: Ofe Saravia MR#: [id number] : 1955 Acct:[id number] Age/Sex: 68 / F Adm Date: 5 Loc: 4P Room: [address] [place] [address] Type: ADM IN Attending Dr: Agatha Martinez [...] 325 Mg Tablet) 650 mg PO Q6H [facility] Stop: 09/10/25 15:59 Last Admin: 09/11/24 04:11 Dose: 650 mg Ezetimibe (Ezetimibe 10 Mg Tablet) 5 mg PO QAM [facility] Stop: 09/10/25 08:59 Last Admin: 09/10/24 09:59 Dose: 5 mg Enoxaparin Sodium (Enoxaparin 40 Mg/0.4 Ml Syringe) 40 mg SUBCUT DAILY@10 [facility] Stop: 09/07/25 09:59 Last Admin: 09/10/24 09:58 Dose: 40 mg Fluoxetine HCl (Fluoxetine 20 Mg Capsule) 20 mg PO QAM [facility] Stop: 09/09/25 09:39 Last Admin: 09/10/24 09:59 Dose: 20 mg Hydromorphone HCl (Hydromorphone 0.5 Mg/0.5 Ml Syringe) 0.5 mg IV-PUSH Q4H PRN PRN Reason: Pain Scale 8 - 10 Last Admin: 09/11/24 04:11 Dose: 0.5 mg Ferric Sodium Gluconate Complex 125 mg/ Sodium Chloride 110 mls @ 110 mls/hr IVQAM [facility] Stop: 09/09/25 19:29 Last Admin: 09/10/24 09:58 Dose: 110 mls/hr Levothyroxine Sodium (Levothyroxine 25 Mcg Tablet) 25 mcg PO QHS [facility] Stop: 09/09/25 21:59 Last Admin: 09/10/24 21:51 [...] signed by MD Elizabeth Elizabeth> 09/11/24 0953 [facility] Work Phone: 1(810) 465-444902-23-[address] [address] Infect. Disease Progress Note Signed Patient: Ofe Saravia MR#: [id number] : 1955 Acct:[id number] Age/Sex: 68 / F Adm Date: 5 Loc: 4 Room: [address] [place] [address] Type: ADM IN Attending Dr: Agatha Martinez [...] 325 Mg Tablet) 650 mg PO Q6H [facility] Stop: 09/10/25 15:59 Last Admin: 09/11/24 04:11 Dose: 650 mg Ezetimibe (Ezetimibe 10 Mg Tablet) 5 mg PO QAM [facility] Stop: 09/10/25 08:59 Last Admin: 09/10/24 09:59 Dose: 5 mg Enoxaparin Sodium (Enoxaparin 40 Mg/0.4 Ml Syringe) 40 mg SUBCUT DAILY@10 [facility] Stop: 09/07/25 09:59 Last Admin: 09/10/24 09:58 Dose: 40 mg Fluoxetine HCl (Fluoxetine 20 Mg Capsule) 20 mg PO QAM [facility] Stop: 09/09/25 09:39 Last Admin: 09/10/24 09:59 Dose: 20 mg Hydromorphone HCl (Hydromorphone 0.5 Mg/0.5 Ml Syringe) 0.5 mg IV-PUSH Q4H PRN PRN Reason: Pain Scale 8 - 10 Last Admin: 09/11/24 04:11 Dose: 0.5 mg Ferric Sodium Gluconate Complex 125 mg/ Sodium Chloride 110 mls @ 110 mls/hr IVQAM [facility] Stop: 09/09/25 19:29 Last Admin: 09/10/24 09:58 Dose: 110 mls/hr Levothyroxine Sodium (Levothyroxine 25 Mcg Tablet) 25 mcg PO QHS [facility] Stop: 09/09/25 21:59 Last Admin: 09/10/24 21:51 [...] MD 09/11/24 0951 Signed By: 09/11/24 0953 [facility]02-22-2025 Progress note Author Agatha Martinez [facility]Note Date/TimeFebruary 2024 3:51pm [place] [address] Hospitalist Progress Note Signed Patient: Ofe Saravia MR#: [id number] : 1955 Acct:[id number] Age/Sex: 68 / F Adm Date: 5 Loc: 4 Room: [id number] Type: ADM IN Attending Dr: Agatha Martinez [...] <Electronically signed by Agatha Martinez MD> 09/10/[address] [place] [address] Ctr Work Phone: 1(884) 393-547202-22-2025 [place] [address] Hospitalist Progress Note Signed Patient: Ofe Saravia MR#: [id number] : 1955 Acct:[id number] Age/Sex: 68 / F Adm Date: 5 Loc: Room: [address] [place] [address] Type: ADM IN Attending Dr: Agatha Martinez [...] 09/10/24 15 46 Signed By: 09/10/24 1551 [facility]02-22-2025 Progress note Author Elizabeth Elizabeth [facility] HospitalNote Date/TimeFebruary 2024 9:12am [place] [address] Infect. Disease Progress Note Signed Patient: Ofe Saravia MR#: [id number] : 1955 Acct:[id number] Age/Sex: 68 / F Adm Date: 5 Loc: Room: [address] [place] [address] Type: ADM IN Attending Dr: Agatha Martinez [...] Appearance Clear Urine pH 6.5 Ur Specific [place] 1.017 Urine Protein 30 H Urine Glucose [...] (Ezetimibe 10 Mg Tablet) [facility] Stop: 09/10/25 08:59 Enoxaparin Sodium (Enoxaparin 40 Mg/0.4 Ml Syringe) 40 mg SUBCUT DAILY@10 [facility] Stop: 09/07/25 09:59 Last Admin: 09/09/24 11:28 Dose: Not Given Fluoxetine HCl (Fluoxetine 20 Mg Capsule) 20 [facility] Stop: 09/09/25 09:39 Last Admin: 09/09/24 12:41 Dose: 20 mg Hydromorphone HCl (Hydromorphone 0.5 Mg/0.5 Ml Syringe) 0.5 mg IV-PUSH Q4H PRN PRN Reason: Pain Scale 8 - 10 Last Admin: 09/10/24 02:15 Dose: 0.5 mg Ferric Sodium Gluconate Complex 125 mg/ Sodium Chloride 110 mls @ 110 mls/hr IVQAM [facility] Stop: 09/09/25 19:29 Last Admin: 09/09/24 20:59 Dose: 110 mls/hr Levothyroxine Sodium (Levothyroxine 25 Mcg Tablet) 25 mcg PO QHS [facility] Stop: 09/09/25 21:59 Last Admin: 09/09/24 21:01 [...] <Electronically signed by MD Elizabeth Elizabeth> 09/10/2412 [facility] Work Phone: 1(625) 570-712702-22-2025 [place] [address] Infect. Disease Progress Note Signed Patient: Ofe Saravia MR#: [id number] : 1955 Acct:[id number] Age/Sex: 68 / F Adm Date: 5 Loc: Room: [address] [place] [address] Type: ADM IN Attending Dr: Agatha Martinez [...] Appearance Clear Urine pH 6.5 Ur Specific [place] 1.017 Urine Protein 30 H Urine Glucose [...] 10 Mg Tablet) 5 mg PO QAM [facility] Stop: 09/10/25 08:59 Enoxaparin Sodium (Enoxaparin 40 Mg/0.4 Ml Syringe) 40 mg SUBCUT DAILY@10 [facility] Stop: 09/07/25 09:59 Last Admin: 09/09/24 11:28 Dose: Not Given Fluoxetine HCl (Fluoxetine 20 Mg Capsule) 20 mg PO QAM [facility] Stop: 09/09/25 09:39 Last Admin: 09/09/24 12:41 [...] MD 09/10/24 0859 Signed By: 09/10/24 0912 [facility]02-21-2025 Consult note Author Rodolfo Valdez [facility]Note Date/TimeFebruary 2024 6:13pm [place] [address] Med Onc/Hem Consult Note Signed Patient: Ofe Saravia MR#: [id number] : 1955 Acct:[id number] Age/Sex: 68 / F Adm Date: 5 Loc: Room: [address] [place] [address] Type: ADM IN Attending Dr: Agatha Martinez [...] legs R>L swelling chronic. no abdominal pain. [facility] Medical History Chronic bronchitis Anxiety Seizures history [...] Appearance Clear, Urine pH 6.5, Ur Specific [place] 1.017, Urine Protein 30 H, Urine Glucose [...] x 3. 2. F/u with Dr. Flanagan [facility]. Code(s): Z85.118 - Personal history of other malignant neoplasm of bronchus and lung No Active Chemotherapy Documented By: Rodolfo Valdez MD 09/09/24 17 51 Signed By: <Electronically signed by Rodolfo Valdez MD> 09/09/24 0120 [facility] Work Phone: 1([phone] Consult noteAndrew [place] [id number] Med Onc/Hem Consult Note Signed Patient: Ofe Saravia MR#: [id number] : 1955 Acct:[id number] Age/Sex: 68 / F Adm Date: 5 Loc: Room: [address] [place] [address] Type: ADM IN Attending Dr: Agatha Martinez [...] legs R>L swelling chronic. no abdominal pain. [facility] Medical History Chronic bronchitis Anxiety Seizures history [...] Appearance Clear, Urine pH 6.5, Ur Specific [place] 1.017, Urine Protein 30 H, Urine Glucose [...] x 3. 2. F/u with Dr. Flanagan [facility]. Code(s): Z85.118 - Personal history of other malignant neoplasm of bronchus and lung No Active Chemotherapy Documented By: Rodolfo Valdez MD 09/09/24 17 51 Signed By: 09/09/24 1813 [facility]02-21-2025 Consult note Author Elizabeth Elizabeth [facility] HospitalNote Date/TimeFebruary 2024 2:23pm [place] [address] Infect. Disease Consult Note Signed Patient: Ofe Saravia MR#: [id number] : 1955 Acct:[id number] Age/Sex: 68 / F Adm Date: 5 Loc: Room: [address] [place] [address] Type: ADM IN Attending Dr: Agatha Martinez [...] negative unless noted below or in HPI [facility] Medical History (Updated 09/09/24 @ 14:18 by [...] 250 Mg Tablet) 500 mg PO Q24H [facility] Last Admin: 09/08/24 20:43 Dose: 500 mg Ezetimibe (Ezetimibe 10 Mg Tablet) 5 mg PO QAM [facility] Stop: 09/10/25 08:59 Enoxaparin Sodium (Enoxaparin 40 Mg/0.4 Ml Syringe) 40 mg SUBCUT DAILY@10 [facility] Stop: 09/07/25 09:59 Last Admin: 09/09/24 11:28 Dose: Not Given Fluoxetine HCl (Fluoxetine 20 Mg Capsule) 20 mg PO QAM [facility] Stop: 09/09/25 09:39 Last Admin: 09/09/24 12:41 Dose: 20 mg Hydromorphone HCl (Hydromorphone 0.5 Mg/0.5 Ml Syringe) 0.5 mg IV-PUSH Q4H PRN PRN Reason: Pain Scale 8 - 10 Last Admin: 09/09/24 09:36 Dose: 0.5 mg Ceftriaxone Sodium (Rocephin) 1 gm in 50 mls @ 100 mls/hr IV Q24H [facility] Last Infusion: 09/09/24 00:13 Dose: Infused Levothyroxine [...] 50 ml @ 100 mls/hr IV Q24H [facility] Rx #:[id number] Oral 1360 / 1660 100 / 100 [...] Appearance Clear Urine pH 6.0 Ur Specific [place] >1.050 H Urine Protein 20 H Urine [...] signed by MD Elizabeth Elizabeth> 09/09/24 1423 [facility] Work Phone: 1(708) 133-758802-21-2025 Progress note Author Agatha Martinez [facility] Date/TimeFebruary 2024 2:06pm [place] [address] Hospitalist Progress Note Signed Patient: Ofe Saravia MR#: [id number] : 1955 Acct:[id number] Age/Sex: 68 / F Adm Date: 5 Loc: Room: [address] [place] [address] Type: ADM IN Attending Dr: Agatha Martinez [...] 10 Mg Tablet PO 09/10/25 08:59 QAM [facility] Enoxaparin Sodium 40 mg 09/07/24 10:00 09/07/24 [...] signed by Agatha Martinez MD> 09/09/24 1406 [facility] Work Phone: 1(798) 721-643302-21-2025 [place] [address] Infect. Disease Consult Note Signed Patient: Ofe Saravia MR#: [id number] : 1955 Acct:[id number] Age/Sex: 68 / F Adm Date: 5 Loc: Room: [address] [place] [address] Type: ADM IN Attending Dr: Agatha Martinez [...] negative unless noted below or in HPI [facility] Medical History (Updated 09/09/24 @ 14:18 by [...] 250 Mg Tablet) 500 mg PO Q24H [facility] Last Admin: 09/08/24 20:43 Dose: 500 mg Ezetimibe (Ezetimibe 10 Mg Tablet) 5 mg PO QAM [facility] Stop: 09/10/25 08:59 Enoxaparin Sodium (Enoxaparin 40 Mg/0.4 Ml Syringe) 40 mg SUBCUT DAILY@10 [facility] Stop: 09/07/25 09:59 Last Admin: 09/09/24 11:28 Dose: Not Given Fluoxetine HCl (Fluoxetine 20 Mg Capsule) 20 mg PO QAM [facility] Stop: 09/09/25 09:39 Last Admin: 09/09/24 12:41 Dose: 20 mg Hydromorphone HCl (Hydromorphone 0.5 Mg/0.5 Ml Syringe) 0.5 mg IV-PUSH Q4H PRN PRN Reason: Pain Scale 8 - 10 Last Admin: 09/09/24 09:36 Dose: 0.5 mg Ceftriaxone Sodium (Rocephin) 1 gm in 50 mls @ 100 mls/hr IV Q24H [facility] Last Infusion: 09/09/24 00:13 Dose: Infused Levothyroxine [...] @ 100 mls/hr IV Q24H [facility] Rx #:[id number] Oral 1360 / 1660 100 / 100 [...] Appearance Clear Urine pH 6.0 Ur Specific [place] >1.050 H Urine Protein 20 H Urine [...] MD 09/09/24 1413 Signed By: 09/09/24 1423 [facility]02-21-2025 [place] [address] Hospitalist Progress Note Signed Patient: Ofe Saravia MR#: [id number] : 1955 Acct:[id number] Age/Sex: 68 / F Adm Date: 5 Loc: Room: [address] [place] [address] Type: ADM IN Attending Dr: Agatha Martinez [...] 10 Mg Tablet PO 09/10/25 08:59 QAM [facility] Enoxaparin Sodium 40 mg 09/07/24 10:00 09/07/24 [...] 09/09/24 10 58 Signed By: 09/09/24 1406 [facility]02-21-2025 Consult note Author Miguel Taveras [facility] Date/TimeFebruary 2024 11:35am [place] [address] Physiatry (Rehab) Consult Note Signed Patient: Ofe Saravia MR#: [id number] : 1955 Acct:[id number] Age/Sex: 68 / F Adm Date: 5 Loc: Room: [address] [place] [address] Type: ADM IN Attending Dr: Agatha Martinez [...] right pelvis with improvedpain. She follows with [facility] [place] and the plan was to start chemotherapy [...] negative unless noted below or in HPI [facility] Medical History (Updated 09/09/24 @ 11:33 by [...] chart, including current orders, allied health and apprenticeship consultant notes, labs/imaging and performed landry elements of exam and I formulated the plan of care and facilitated the medical decision making. I completed a substantive portion of this encounter, the medical decision makingportion of this note in its entirety, including Allied health note review, nursing note review, apprenticeship consultant note review,discussion with nursing and case management, and more than 50% of my time was spent on counseling and coordination of care, time spent 50 minutes Documented By: Miguel Taveras MD 09/09/24 0934 Signed By: <Electronically signed by Miguel Taveras MD> 09/09/24 0297 [facility] Work Phone: 1(523) [phone] [place] [address] Physiatry (Rehab) Consult Note Signed Patient: Ofe Saravia MR#: [id number] : 1955 Acct:[id number] Age/Sex: 68 / F Adm Date: 5 Loc: Room: [address] [place] [address] Type: ADM IN Attending Dr: Agatha Martinez [...] right pelvis with improvedpain. She follows with [facility] and the plan was to start [...] negative unless noted below or in HPI [facility] Medical History (Updated 09/09/24 @ 11:33 by [...] chart, including current orders, allied health and apprenticeship consultant notes, labs/imaging and performed landry elements of exam and I formulated the plan of care and facilitated the medical decision making. I completed a substantive portion of this encounter, the medical decision makingportion of this note in its entirety, including Allied health note review, nursing note review, apprenticeship consultant note review,discussion with nursing and case management, and more than 50% of my time was spent on counseling and coordination of care, time spent 50 minutes Documented By: Miguel Taveras MD 09/09/24 0934 Signed By: 09/09/24 1135 [facility]02-21-2025 Telephone encounter Note* Telephone Encounter - Ghislaine Thakur RN - 09/09/2024 11:06 AM EST Call placed to Kayla at [facility] who states pt has been spiking fevers over the last 24 hours and they're trying to figure out why. They re cindy blood cultures today as well as did another urine culture. Pt is on IV rocephin and oral zithromax. Dr Elizabeth has been consulted as well. Ghislaine Thakur RN [facility]02-20-2025 Progress note Author Agatha Martinez [facility] Date/TimeFebruary 2024 3:31pm [place] [address] Hospitalist Progress Note Signed Patient: Ofe Saravia MR#: [id number] : 1955 Acct:[id number] Age/Sex: 68 / F Adm Date: 5 Loc: 4P Room: [address] [place] [address] Type: ADM IN Attending Dr: Agatha Martinez [...] <Electronically signed by Agatha Martinez MD> 09/08/24 1538 [facility] Work Phone: 1(941) 183-579202-20-2025 [facility] [address] [place] [address] Hospitalist Progress Note Signed Patient: Ofe Saravia MR#: [id number] : 1955 Acct:[id number] Age/Sex: 68 / F Adm Date: 5 Loc: 4 Room: [address] [place] [address] Type: ADM IN Attending Dr: Agatha Martinez [...] MD 09/08/24 11 54 Signed By: 09/08/[address] [place], [place] 3866102-20-2025 History and physical note Author Horace Fairbanks [facility] Date/TimeFebruary 2024 6:49am [place] [address] Hospitalist H&P Signed Patient: Ofe Saravia MR#: [id number] : 1955 Acct:[id number] Age/Sex: 68 / F Adm Date: 5 Loc: Room: [address] [place] [address] Type: ADM IN Attending Dr: Agatha Martinez [...] care and confirmed it with the re sident/student/[employer] DEVELOPER. Ofe Saravia is a 68-year-old female with past medical history significant for stroke with left-sided facial droop send deficits and lung cancer being treated by [facility] who presented to the ER this [...] or anyother acute symptoms at this time. [facility] Medical History Chronic bronchitis Anxiety Seizures history [...] Lymph % (Auto) 3.2 % (.) 09/06/24: [place] % (Auto) 7.2 % (.) 09/06/24: Eos % (Auto) 0.5 % (.) 09/06/24: Baso % (Auto) 0.5 % (.) 09/06/24: Nucleat RBC Rel Count 0.0 /100 WBC (0-0.5) 09/06/24: Neut # (Auto) 12.6 x10E3/uL (1.8-7.7) H 09/06/24: Lymph # (Auto) 0.5 x10E3/uL (1.00-4.8) L 09/06/24: [place] # (Auto) 1.0 x10E3/uL (0.0-0.8) H 09/06/24 [...] signed by DO SUNDEEP Aguilar> 09/07/24 0606 [facility] Work Phone: 1(454) 261-548302-20-2025 [place] [address] Hospitalist H&P Signed Patient: Ofe Saravia MR#: [id number] : 1955 Acct:[id number] Age/Sex: 68 / F Adm Date: 5 Loc: 4 Room: [address] [place] [address] Type: ADM IN Attending Dr: Agatha Martinez [...] care and confirmed it with the re sident/student/JAVA ANDROID DEVELOPER. Ofe Saravia is a 68-year-old female with past medical history significant for stroke with left-sided facial droop send deficits and lung cancer being treated by [facility] who presented to the ER this [...] or anyother acute symptoms at this time. [facility] Medical History Chronic bronchitis Anxiety Seizures history [...] Lymph % (Auto) 3.2 % (.) 09/06/24: Cameron % (Auto) 7.2 % (.) 09/06/24: Eos % (Auto) 0.5 % (.) 09/06/24 21: Baso % (Auto) 0.5 % (.) 09/06/24 21: Nucleat RBC Rel Count 0.0 /100 WBC (0-0.5) 09/06/24 21: Neut # (Auto) 12.6 x10E3/uL (1.8-7.7) H 09/06/24 21: Lymph # (Auto) 0.5 x10E3/uL (1.00-4.8) L 09/06/24 21: Cameron # (Auto) 1.0 x10E3/uL (0.0-0.8) H 09/06/24 [...] [id number] Signed By: 09/08/24 0649 09/07/24 0606 [facility]02-20-2025 Radiology Diagnostic study note [place] [address] CT Scan Report Signed Patient: Ofe Saravia MR#: [id number] : 1955 Acct:[id number] Age/Sex: 68 / F ADM Date: 5 Loc: 4 Room: [address] [place] [address] Type: ADM IN Attending Dr: Agatha Martinez [...] Sanjiv Reis M.D.09/08/2024 12:43 AM Dictation Location: [place] [address] Transcribed By: COLETTE 09/08/2442 Dictated By: Sanjiv Reis II, MD 09/08/24 003 Signed By: 09/08/2442 [facility] Work Phone: 1(230) 825-842102-19-2025 Progress note Author Agatha Martinez [facility] HospitalNote Date/TimeFebruary 2024 1:35pm [place] [address] Hospitalist Progress Note Signed Patient: fOe Saravia MR#: [id number] : 1955 Acct:[id number] Age/Sex: 68 / F Adm Date: 5 Loc: Room: [address] [place] [address] Type: ADM IN Attending Dr: Agatha Martinez [...] 4 lung cancer, unclear what type, followswith [facility] group, has not started treatment yet. [...] <Electronically signed by Agatha Martinez MD> 09/07/24 2677 [facility] Work Phone: 1(395) 814-397202-19-2025 Telephone encounter Note* Telephone Encounter - Adina Romero - 09/07/2024 2:13 PM EST Patient's 09/08 appointments at our office have been cancelled. Adina Roman Pss [facility]02-19-2025 Telephone encounter Note* Telephone Encounter - Ghislaine Thkaur RN - 09/07/2024 1:50 PM EST Call placed to Domenica, nurse caring for pt. She states pt was admitted with pneumonia. She is currently on IV rocephin and erythromycin. Pt is also receiving 1 unit of blood now for hgb of 7.6. PSS: please cancel pt's appointments here tomorrow as she will still be admitted to [facility]. Thanks Ghislaine Thakur RN [facility]02-19-2025 [place] [address] Hospitalist Progress Note Signed Patient: Ofe Saravia MR#: [id number] : 1955 Acct:[id number] Age/Sex: 68 / F Adm Date: 5 Loc: Room: [address] [place] [address] Type: ADM IN Attending Dr: Agatha Martinez [...] 4 lung cancer, unclear what type, followswith [facility] group, has not started treatment yet. [...] 09/07/24 11 12 Signed By: 09/07/24 1335 [facility]02-19-2025 Telephone encounter Note* Telephone Encounter - Ghislaine Thakur RN - 09/07/2024 9:37 AM EST Pt admitted to 4T at [facility]. Spoke with dietary supervisor and she will have pt's nurse call our office back. Ghislaine Thakur RN [facility]02-19-2025 Evaluation note* Diagnosis Onset Date Resolution Status Admit Date Anemia acuteFebruary 2024 12:51amArthralgiaacuteFebruary 2024 12:51amCAP (community acquired pneumonia)acuteFebruary 2024 12:51amHistory of lung canceracuteFebruary 2024 12:51am [facility] Work Phone: 1(994) 376-872502-19-2025 Evaluation note* Diagnosis Onset Date Resolution Status Admit Date Anemia acuteFebruary 2024 12:51amArthralgiaacuteFebruary 2024 12:51amCAP (community acquired pneumonia)acuteFebruary 2024 12:51amHistory of lung canceracuteFebruary 2024 12:51amHistory of stroke with residual deficit acuteFebruary 2024 12:51amHypothyroidismacuteFebruary 2024 12:51am Impaired mobility and activities of daily livingacuteFebruary 2024 12:51am Intermittent feveracuteFebruary 2024 12:51amLoose stoolsacuteFebruary 2024 12:51amMetastatic diseaseacuteFebruary 2024 12:51am [facility] Work Phone: 1(416) 651-126402-19-2025 Evaluation note* Diagnosis Onset Date Resolution Status Admit Date Anemia inactiveFebruary 2024 12:51amArthralgiainactiveFebruary 2024 12:51am CAP (community acquired pneumonia)inactiveFebruary 2024 12:51amHistory of lung cancerinactiveFebruary 2024 12:51amHistory of stroke with residual deficitinactiveFebruary 2024 12:51amHypothyroidisminactiveFebruary 2024 12:51amImpaired mobility and activities of daily livinginactiveFebruary 2024 12:51amIntermittent feverinactiveFebruary 2024 12:51amLoose stoolsinactiveFebruary 2024 12:51amMetastatic diseaseinactiveFebruary 2024 12:51am [facility] Work Phone: 1(804) 716-333202-18-2025 [facility] [place] [address] [place] [address] CT Scan Report Signed Patient: Ofe Saravia MR#: [id number] : 1955 Acct:[id number] Age/Sex: 68 / F ADM Date: 5 Loc: ER Room: Type: [facility] ER Attending Dr: Copies to: David Grant [...] Sanjiv Reis M.D.09/06/2024 11:13 PM Dictation Location: [place] [address] Transcribed By: [facility] 09/06/242312 Dictated By: Sanjiv Reis II, MD 09/06/246 Signed By: 09/06/24 231 [facility] Work Phone: 1(470) 344-796502-18-2025 Telephone encounter Note* Telephone Encounter - Ghislaine Thakur RN - 09/06/2024 4:20 PM EST Pt's notified and he will be taking pt to [facility]. Ghislaine G Vinton, RN [facility]02-18-2025 Telephone encounter Note* Telephone Encounter - Jazmyne Bryson RN - 09/06/2024 4:18 PM EST Care Coordination Triage Note [facility] Oncology notified our team that patient having [...] Bryson RN September 06, 2024 4:24 PM [facility]02-18-2025 Miscellaneous Notes* Telephone Encounter - Jazmyne Bryson RN - 09/06/2024 4:18 PM EST Care Coordination Triage Note [facility] Oncology notified our team that patient having [...] 06, 2024 4:24 PM documented in this encounterGood [facility]ar[facility]02-18-2025 Telephone encounter Note * Telephone Encounter - Isaac Gracia MD - 09/06/2024 4:10 PM EST Please send her to ER. Thanks. [facility]02-18-2025 Telephone encounter Note* Telephone Encounter - [...] had radiation. Please advise Ghislaine Thakur RN [facility]02-17-2025 Miscellaneous Notes* Telephone Encounter - Paulina Murphy - 09/05/2024 10:58 AM EST Patient is active with Medicare A/B, LOC 80%. Estimate shows patient financial responsibility is $2977.18 for each treatment in 2024. Called the patient to discuss, unable to leave voicemail as mailbox is full. Reference #[id number]. MyCost sent vis Mychart. Will send application for [employer] PAP Program for free Keytruda since patient only has Medicare A/B. documented in this encounterGood [facility]aritan Hospital02-17-2025 Telephone encounter Note * Telephone Encounter - Paulina Murphy - 09/05/2024 10:58 AM EST Patient is active with Medicare A/B, LOC 80%. Estimate shows patient financial responsibility is $2977.18 for each treatment in 2024. Called the patient to discuss, unable to leave voicemail as mailbox is full. Reference #[id number]. MyCost sent vis Mychart. Will send application for [employer] PAP Program for free Keytruda since patient only has Medicare A/B. [facility]02-16-2025 Telephone encounter Note* Telephone Encounter - [...] 75mg and changed freuqency to q4 PRN [facility]02-16-2025 Miscellaneous Notes* Telephone Encounter - Armando [...] freuqency to q4 PRN documented in this encounterGood Samaritan Hospital02-12-2025 NoteHNO ID: [id number] Author: ASIA SILVERMAN RN Service: ? Author Type: Registered Nurse Type: Progress Notes Filed: 10/03/2024 23:21 Note Text: Status: Post-menopausal.[facility]02-12-2025 Telephone encounter Note* Telephone Encounter - Ghislaine Thakur RN - 08/31/2024 11:08 AM EST Call placed to pt/spouse and they are aware of medication changes. Deny questions at this time. Ghislaine Thakur RN [facility] Work Phone: [phone]) 657-2864759355-09-3086 Miscellaneous Notes* Telephone Encounter - Ghislaine Thakur [...] advise Ghislaine Thakur RN documented in this encounterGood Samaritan Hospital02-12-2025 Telephone encounter Note * Telephone Encounter - Jazmyne Bryson RN - 08/31/2024 9:56 AM EST Palliative Medicine at Home Care Coordination New Patient Note Nurse introduced self and role of Neonatal Nurse Practitioner in Palliative Medicine. Reviewed contact sheet information and on-call process. Nurse educated patient on medication refill process. Nurse encouraged patient to call with any questions/concerns/symptom related issues. Jazmyne Bryson RN [facility]02-12-2025 Miscellaneous Notes* Telephone Encounter - Jazmyne Bryson RN - 08/31/2024 9:56 AM EST Palliative Medicine at Home Care Coordination New Patient Note Nurse introduced self and role of Neonatal Nurse Practitioner in Palliative Medicine. Reviewed contact sheet information and on-call process. Nurse educated patient on medication refill process. Nurse encouraged patient to call with any questions/concerns/symptom related issues. Jazmyne Bryson RN documented in this encounterGood Samaritan Hospital02-12-2025 Telephone encounter Note * Telephone Encounter - Jazmyne Bryson RN - 08/31/2024 9:55 AM EST Updated medication recommendations sent in other telephone encounter. Jazmyne Bryson RN August 31, 2024 9:55 AM [facility]02-12-2025 Telephone encounter Note* Telephone Encounter - Jazmyne Bryson RN - 08/31/2024 9:40 AM EST Palliative Medicine Care Coordination Follow up Phone Call Received an update from Ghislaine Thakur type cutter that patient reports morphine not effective for [...] our contact information and phone numbers in [employer] message. Jazmyne Bryson RN August 31, 2024 9:52 AM [facility]02-12-2025 Miscellaneous Notes* Telephone Encounter - Jazmyne Bryson RN - 08/31/2024 9:40 AM EST Palliative Medicine Care Coordination Follow up Phone Call Received an update from Ghislaine Thakur type cutter that patient reports morphine not effective for [...] 31, 2024 9:52 AM documented in this encounterGood Samaritan Hospital02-12-2025 Telephone encounter Note * Telephone Encounter - Vincent Estrada APRN.CNP - 08/31/2024 9:09 AM EST I discharged morphine Increase Mobic to 15 mg po daily with food Oxycodone 10- 20 mg po every 4 hours Increase gabapentin to 300 mg po TID [facility]02-12-2025 [facility] History of Present illness Narrative* Ghislaine Thakur [...] here at our office. Ghislaine Thakur, RN Neonatal Nurse Practitioner Pre Chemo Patient identified by name and date of . YES Confirmed date and time for chemotherapy ? YES Other appointments (labs, imaging) discussed? 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 Ghislaine Thakur RN documented in this encounterGood Samaritan Hospital02-12-2025 History of Present illness Narrative* Juan C Schreiber MD - 08/31/2024 12:00 AM EST [facility] Radiation Oncology Department RADIATION ONCOLOGY [...] Gracia MD ([facility]) PCP documented in this encounterGood Samaritan Hospital02-12-2025 NoteOhio[facility]02-11-2025 Telephone encounter Note* Telephone Encounter - Ghislaine [...] an 8/10. Please advise Ghislaine Thakur RN [facility]02-11-2025 Telephone encounter Note* Telephone Encounter - Ghislaine Thakur RN - 08/30/2024 8:57 AM EST Pt will be in for chemo ed today. Please sign pending order. Thanks Ghislaine Thakur RN [facility]02-11-2025 Miscellaneous Notes* Telephone Encounter - Ghislaine Thakur RN - 08/30/2024 8:57 AM EST Pt will be in for chemo ed today. Please sign pending order. Thanks Ghislaine Thakur RN documented in this encounterGood Samaritan Hospital02-07-2025 Note* Addendum Note - Isaac Gracia MD - 08/26/2024 2:25 PM ESTAddended by: ISAAC GRACIA on: 08/26/2024 02:25 PM Modules accepted: Orders [facility]02-07-2025 Miscellaneous Notes* Addendum Note - Isaac Gracia MD - 08/26/2024 2:25 PM ESTAddended by: ISAAC GRACIA on: 08/26/2024 02:25 PM Modules accepted: Orders documented in this encounterGood Samaritan Hospital02-07-2025 Instructions* Patient Instructions* Isaac Gracia MD - 08/26/2024 1:54 PM EST Chemo teach for carbo taxol keytruda Will start chemo in 2 weeks Schedule MRI brain Obtain dental clearance for bisphosphonate therapy F/u in 2 weeks documented in this encounterGood Samaritan Hospital02-07-2025 Instructions* Patient Instructions* Vincent Estrada APRN.SKYLAR - 08/26/2024 1:32 PM EST Vincent Estrada CNP Department of Palliative and Supportive Care Palliative Care - Specialty services in symptom management and support For questions or prescription refills, call: [phone] Thursday - Thursday 9AM-5PM TONY Mejia, RN - Neonatal Nurse Practitioner Please call 3-5 days in advance for medication refills Evenings, Weekends, Holidays: (ask for palliative medicine on-call provider) For appointments, cancellations or reschedule, call: [phone] Estrada CNP Department of Palliative and Supportive Care Palliative Care - Specialty services in symptom management and support For questions or prescription refills, call: [phone] Thursday - Thursday 9AM-5PM TONY Mejia, RN - Neonatal Nurse Practitioner Please call 3-5 days in advance for medication refills Evenings, Weekends, Holidays: [phone] (ask for palliative medicine on-call provider) For appointments, cancellations or reschedule, call: [phone] documented in this encounterGood Samaritan Hospital02-07-2025 History of Present illness Narrative* Isaac Gracia MD - 08/26/2024 1:30 PM EST Images from the original note were not included. PATIENT NAME: Ofe Saravia [facility] NO.: [id number] ATTENDING PHYSICIAN: Isaac Gracia MD DATE OF SERVICE: August 26, [address] Sarabjit Crowley [address] [facility] [address] thank you for referring Ofe Saravia for [...] with Dr. Narayan from rad onc at [facility] who recommended palliative RT closer to home, at [facility]. Venus is a former smoker, having quit [...] Range Status 07/29/2024 8.3 % Final Abs Cameron Date Value Ref Range Status 07/29/2024 0.85 [...] in [address] Sarabjit Crowley [address] [facility] [address] thank you for allowing me to participate in Ofe Saravia care, if there are any questions or concerns please do not hesitate to contact me at the number below. I spent a total of 60 minutes on the date of the service which included preparing to see the patient, [id number] patient care, completing clinical documentation, obtaining and/or reviewing separately obtained history, performing a medically appropriate examination, counseling and educating the pat ient/family/caregiver, ordering medications, tests, or procedures, communicating with other HCPs (not separately reported), independently interpreting results (not separately reported), communicatingresults to the patient/family/caregiver, and care coordination (not separately reported). Isaac Gracia MD. Hematology/Medical Oncology [facility] [phone] CC: documented in this encounterGood Samaritan Hospital02-07-2025 NoteOhio[facility] Center02-07-2025 History of Present illness Narrative* Vincent Estrada, AUTOMOBILE BODY CUSTOMIZER.PARKING LOT ATTENDANT AND CASHIER - 08/26/2024 1:00 PM EST PALLIATIVE MEDICINE INITIAL CONSULT SERVICE DATE: 08/26/2024 Referring Physician: Yasmeen Narayan [id number] [facility] [address] Medical Oncologist: Isaac Gracia MD Radiation Oncologist: Juan C Schreiber MD [...] Types: Cigarettes REVIEW OF SYSTEMS: Modified ESAS ([place] Symptom Assessment Scale): Information Provided By: Patient [...] Informed Consent: Signed today Vincent Estrada, JUDY, AUTOMOBILE BODY CUSTOMIZER.PARKING LOT ATTENDANT AND CASHIER Assessment & Plan (Z51.5) Palliative care by specialist (primary encounter diagnosis) - Introduced philosophy of palliative medicine and hospice to family. - Discussed services offered by [facility] and hospice - Provided support to family [...] shared electronic medical record. Vincent Estrada NP, AUTOMOBILE BODY CUSTOMIZER.PARKING LOT ATTENDANT AND CASHIER August 26, 2024 11:38 AM I spent a total of 45 minutes on the date of the service which included preparing to see the patient, [id number]-[id number]-nznn patient care, completing clinical documentation, obtaining and/or reviewing separately obtained history, performing a medically appropriate examination, counseling and educating the pat ient/family/caregiver, ordering medications, tests, or procedures, communicating with other HCPs (not separately reported), independently interpreting results (not separately reported), communicatingresults to the patient/family/caregiver, and care coordination (not separately reported) . This note may have been partially generated using the [employer] voice recognition system. While every effort was made to correct voice recognition errors, kindly be aware that some errors may occasionally occur. documented in this encounterGood Samaritan Hospital02-07-2025 NoteOhio[facility]02-05-2025 NoteOhio[facility]02-05-2025 History of Present illness Narrative* Juan C Schreiber MD - 08/24/2024 11:44 PM EST Images from the original note were not included. Radiation Oncology - New Patient/Consult Note PATIENT NAME: Ofe Saravia PATIENT Signed: Juan C Schreiber MD I spent a total of 60 minutes on the date of the service which included preparing to see the patient, nodw-dg-rvjf patient care, and counseling and educating the patient/family/caregiver. This document has been created with the use of voice recognition technology. It may contain inaccuracies, misspellings, inaccurate syntax or inappropriate word context that are a result of the inadequacies/shortcomings of said technology/software. documented in this encounterGood Samaritan Hospital02-05-2025 NoteOhio[facility] Center02-05-2025 History of Present illness Narrative* Asia Silverman RN - 08/24/2024 4:49 PM EST Radiation Therapy - Patient Education Note PATIENT NAME: Ofe Saravia PATIENT August 24, 2024 [facility] FACILITY/LOCATION: [facility] READINESS TO LEARN Cognitive Ability: Alert and [...] need for social work, van service, and tire fixer. Was PED reviewed? No Patient has an Onbody or Implanted device: No Signed by: Asia Silverman RN documented in this encounterGood Samaritan Hospital02-05-2025 Telephone encounter Note * Telephone Encounter - Clarissa Cid - 08/24/2024 8:49 AM EST Consult and rad ed added. Patient called and confirmed 215 today arrival [facility]02-05-2025 Miscellaneous Notes* Telephone Encounter - Clarissa [...] Donovan Female, 68 year old, 1955 eMRN: [id number] Code: Full Code by Default ACP/Adv Dir: Sung Alexander, this is a very unfortunate woman with a new dx of stage IV lung cancer with severe Rshoulder and R hip pain, she lives near you in [place]. I suggested a 5-fraction pall schedule to each site and she would like to get it close to home with you. Can you please set her up for this bythe end of this week? Thanks gv documented in this encounterGood Samaritan Hospital02-05-2025 Telephone encounter Note * Telephone Encounter - Naty Gamboa RT(R) - 08/24/2024 8:27 AM EST Sim scheduled today at 330 PSS - please schedule consult with MARYLIN at 230 & notify pt of 215 arrival time today, no specialinstructions Thanks! RT Alan(R)(T) [facility] Work Phone: 1(560) 661-184702-05-2025 Telephone encounter Note* Telephone Encounter - Asia Silverman RN - 08/24/2024 8:12 AM EST PSS/RT: Please schedule consult with Dr. Schreiber and BELEM VINNIE-treating right hip and right shoulder possibly with severe pain. Consult SIM treating right hip and right shoulder Nurse ed same day as consult/sim Thanks MEKHI Tavera Sachin Donovan Female, 68 year old, 1955 eMRN: [id number] Code: Full Code by Default ACP/Adv Dir: Sung Alexander, this is a very unfortunate woman with a new dx of stage IV lung cancer with severe Rshoulder and R hip pain, she lives near you in [place]. I suggested a 5-fraction pall schedule to each site and she would like to get it close to home with you. Can you please set her up for this bythe end of this week? 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 1:22 PM documented in this encounterGood Samaritan Hospital02-05-2025 NoteOhio[facility]02-05-2025 NoteOhio[facility]02-04-2025 History of Present illness Narrative* Sarabjit Crowley DO - 08/23/2024 2:00 PM EST Images from the original note were not included. [facility] NEW PATIENT VISIT Department of Hematology and Medical Oncology PATIENT NAME: Ofe Saravia NO.: [id number] DATE OF SERVICE: 08/23/2024 PCP: Asya Clements Jr, DO REFERRING PROVIDER: Darian Barclay PA-C DIAGNOSIS: Metastatic NSCLC (squamous cell carcinoma) STAGE: Stage IVB BIOMARKERS: PD-L1 by TPS = PENDING NGS by [facility] TOP = N/A PRIOR THERAPY: None [...] with Dr. Narayan from rad onc at [facility] who recommended palliative RT closer to home, at [facility]. Ofe is accompanied by her at today's [...] (7.2 x 4.4 cm). PATHOLOGY: SURGICAL PATHOLOGY: [id number] Order: [id number] Collected 08/10/2024 9:05 AM Status: Final result [...] with Dr. Narayan from rad onc at [facility] who recommended palliative RT closer to home, at [facility]. I reviewed the diagnosis of stage IV, [...] 4. Referral placed to medical oncology at [facility] per patient preference, given proximity to home 5. Patient scheduled to establish care with palliative medicine at [facility] this week 6. Agree with plans for palliative RT to painful bone lesions All questions and concerns have been addressed. Final recommendations will be shared with Darian Barclay PA-C and communicated with the team. I spent a total of 60 minutes on the date of the service which included preparing to see the patient, mrpt-wm-jyqg patient care, completing clinical documentation, obtaining and/or reviewing separately obtained history, performing a medically appropriate examination, counseling and educating the pat ient/family/caregiver, ordering medications, tests, or procedures, independently interpreting results (not separately reported), and communicating results to the patient/family/caregiver. Sarabjit Crowley DO Associate Staff, Department of Hematology and Medical Oncology [facility] August 23, 2024 12:19 PM * Nick SpringBRITT - 08/23/2024 1:36 PM EST Additional intake questions: Has the patient had fever, nausea, vomiting, diarrhea, constipation, fatigue for > 1 week? Yes, constipation (day of last BM 08/21/2024) and fatigue Does the patient have a decreased appetite? Yes Does patient want to see a Gusset Ripper? No (yes to any of above refer patient to schedulers for dietitian appointment) ) Does patient have any new or increased numbness or tingling of extremities? No Is patient interested in fertility information? No Does patient need any prescription refills? No Does patient have an advanced directive in place? Yes Electronically Signed By: Sravanthi Romero LPN documented in this encounterGood Samaritan Hospital02-04-2025 NoteOhio[facility]-04-2025 NoteOhio[facility]02-04-2025 History of Present illness Narrative* Sarabjit Sharma [...] will get her radiation treatment out in [place]. Current Outpatient Medications Medication Sig acetaminophen (TYLENOL) [...] Past Histories independently gathered by the clinical ground support equipment mechanic and the remaining scribed note accurately describes my personal service to the patient. Sarabjit Sharma MD Scalp Treatment Specialist, Orthopaedic Surgery Division of Musculoskeletal Oncology documented in this encounterGood Samaritan Hospital02-04-2025 NoteOhiohealth Grant Medical Center02-03-2025 History of Present illness Narrative* Yasmeen Narayan [...] medication. Her PCP Dr. Asya Clements in [place] ordered an MRI of the R shoulder as the expectation was that she had a degenerative joint issue. and she was referred to a sports editor at [facility]. Dr. Paulina Jacobson. MRI (07/01/2024) . [...] she would like to receive it at [facility] or at a center near her in [place]. She expressed a preference for receiving treatment at the [facility] in [place]. We discussed the risks, benefits, alternatives, procedures, mechanics and personnel involved in treatment. We also discussed the possible acute and late side effects involved. All questions and concerns were addressed. By the end of our encounter, Ms. Ofe Saravia verbalized good understanding of the treatment plan and was agreeable to proceed with palliative radiation therapy. Signed by: Estrellita De Jesus, MS4 08/22/24 [facility] STAFF PHYSICIAN NOTE OF PERSONAL INVOLVEMENT IN [...] due to pelvic pain. She lives near [place]. PLAN: 1. Discussed modifications to her pain medication schedule to optimized its benefits 2. Discussed palliative RT to R shoulder and pelvic sites. Rationale R/B/Se/A/P reviewed. All questions answered. Pt verbalized understanding. Due to the distance to [facility], she asked for referral to [facility] for her RT care. I will facilitate this. 3. To see medical oncology tomorrow to discuss systemic therapy to be initiated after palliative RT. SIGNATURE: Yasmeen Narayan MD DATE of SERVICE: August 22, 2024 cc: Asya Clements Jr ([facility]) [address] [place] [phone] Darian Barclay [address] [facility] [address] [place] [id number] * Naty Lambert LPN - 08/22/2024 9:49 AM EST Additional intake questions: Has the patient had fever, nausea, vomiting, diarrhea, constipation, fatigue for > 1 week? Yes, constipation (day of last BM 08/21/24), fatigue, and Provider Notified Does the patient have a decreased appetite? yes Does patient want to see a Gusset Ripper? No (yes to any of above refer patient to schedulers for dietitian appointment) ) Does patient have any new or increased numbness or tingling of extremities? Yes, left side Is patient interested in fertility information? No Does patient need any prescription refills? No Does patient have an advanced directive in place? Yes, copies are in [facility] documented in this encounterGood Samaritan Hospital02-03-2025 NoteOhio[facility] Center02-03-2025 NoteOhio[facility]01-31-2025 NoteOhio[facility]01-31-2025 History of Present illness Narrative* Darian Barclay [...] with the medical oncologist here at the [facility]. The cancer answer line is working on [...] treatments long-term would be closer to home [facility] -We will plan to change the [...] visit Darian Barclay PA-C documented in this encounterGood Samaritan Hospital01-22-2025 NoteOhiohealth Grant Medical Center01-21-[address] [facility] [place] [address] Ultrasound Report Signed Patient: Ofe Saravia MR#: [id number] : 1955 Acct:[id number] Age/Sex: 68 / F ADM Date: 5 Loc: Room: Type: [facility] Attending Dr: Darian Barclay PA-C Ordering Provider: [...] Sanjiv Reis M.D.08/09/2024 8:14 PM Dictation Location: [place] [address] Tech: Macy Perez Transcribed By: COLETTE 08/09/242013 Dictated By: Sanjiv Reis II, MD 08/09/242004 Signed By: 08/09/242013 [facility] Work Phone: 1(941) 343-712301-20-2025 Nuclear medicine Diagnostic study note [facility] [place] [address] [place] [address] Nuclear Medicine Report Signed Patient: Ofe Saravia MR#: [id number] : 1955 Acct:[id number] Age/Sex: 68 / F ADM Date: 5 Loc: [place] Room: Type: [facility] Attending Dr: Darian Barclay PA-C Copies to: Miguel Panda Jr, DO Darian Barclay PA-C~ Ordering Provider: Darian Barclay PA-C Date of Service: 08/08/24 MO/MO bone scan whole body: E04.1 WHOLE-BODY BONE [...] the left suggesting a degree of obstruction. MO/MO bone scan whole body IMPRESSION: ABNORMAL RADIOTRACER UPTAKE IS SEEN INVOLVING THE RIGHT SCAPULA AND RIGHT ILIAC BONE CONSISTENT WITH THE PATIENT'S KNOWN LYTIC LESIONS. RETAINED RADIOTRACER UPTAKE INVOLVING THE RIGHT KIDNEY WHEN COMPARED TO THE LEFTSUGGESTING A DEGREEOF OBSTRUCTION. NO OBSTRUCTING MASS OR STONE IS SEEN ON THECT STUDY. Impression dictated by: Angelic Shepherd Jr.OCari08/08/2024 12:39 PM Dictation Location: [place] [address] Transcribed By: [facility] 08/08/24 1239 Dictated By: Miguel Panda Jr, DO 08/08/24 1235 Signed By: 08/08/24 1239 [facility]01-20-2025 Radiology Diagnostic study note [facility] [place] [address] [place] [address] CT Scan Report Signed Patient: Ofe Saravia MR#: [id number] : 1955 Acct:[id number] Age/Sex: 68 / F ADM Date: 5 Loc: [place] Room: Type: [facility] Attending Dr: Darian Barclay PA-C Copies to: Darian Barclay PA-C~ Ordering Provider: Darian Barclay PA-C Date of Service: 08/08/24 CT/CT abdomen pelvis w con: M89.9 ([id number]) CT/CT chest w con: M89.9 CT CHEST, [...] Panda Jr., D.OCari08/08/2024 10:23 AM Dictation Location: [place] [address] Transcribed By: [facility] 08/08/24 1023 Dictated By: Miguel Panda Jr, DO 08/08/24 1014 Signed By: 08/08/24 1023 [facility]01-15-2025 Telephone encounter Note* Telephone Encounter - Hanane García - 08/03/2024 2:37 PM EST Spoke to pt and scheduled biopsy for 08/10/24. [facility]01-15-2025 Miscellaneous Notes* Telephone Encounter - Hanane [...] for this procedure: low risk. Reference from [facility] Technical Professional: https://ccf.[employer].fav.or.it/dotNet/documents/?[email or web address] STAFF SIGNATURE: Duane Jimenez MD DATE: August [...] random biopsies do not need imaging.) IMAGING: [facility] (If the imaging was obtained outside the [facility] system, PLEASE upload for review prior to approval.) Note to all persons requesting biopsies: All biopsy requests will be scheduled as quickly as possible, based on the clinical urgency, availability of appointment times, the need to hold anti-thrombolytic therapy (aspirin and other blood thinners) and the patient s schedule, including the need for an available regional intermodal truck driver. If a percutaneous biopsy or drainage is not felt to be safe or an alternative method for establishing a diagnosis is possible, this will be discussed directly with the requesting physician. documented in this encounterGood Samaritan Hospital01-13-2025 Telephone encounter Note * Telephone Encounter [...] this procedure: low risk. Reference from [facility] Technical Professional: https://ccf.[employer]omat[employer].com/dotNet/documents/?ymcwv=86389 STAFF SIGNATURE: Duane Jimenez MD DATE: August 01, 2024 TIME: 4:47 PM [facility] Work Phone: 1(324) 483-648001-13-2025 Telephone encounter Note* Telephone Encounter - Beatrice [...] DATE: August 01, 2024 TIME: 8:33 AM [facility]01-10-2025 Telephone encounter Note* Telephone Encounter - [...] random biopsies do not need imaging.) IMAGING: [facility] (If the imaging was obtained outside the [facility] system, PLEASE upload for review prior to approval.) Note to all persons requesting biopsies: All biopsy requests will be scheduled as quickly as possible, based on the clinical urgency, availability of appointment times, the need to hold anti-thrombolytic therapy (aspirin and other blood thinners) and the patient s schedule, including the need for an available regional intermodal truck driver. If a percutaneous biopsy or drainage is not felt to be safe or an alternative method for establishing a diagnosis is possible, this will be discussed directly with the requesting physician. [facility]01-10-2025 History of Present illness Narrative* Katina [...] PATIENT PRESENTS WITH AN IMPLANTABLE OR ATTACHED CAMERA SYSTEMS ENGINEER: No RADIOLOGY DEPARTMENT: General X-ray: Exam(s) Completed: Pelvis X-Ray: Pelvis with Hip Right PERIPHERAL IV DATA: Not applicable SIGNED BY: RT Chaim(R) July 29, 2024 11:57 AM documented in this encounterGood Samaritan Hospital01-10-2025 NoteOhiohealth [facility] Center01-10-2025 Instructions* Patient Instructions* Darian Barclay PA-C - 07/29/2024 10:45 AM EST XR right hip suite A 21 Lab work A 15 - 1st floor CT CAP Bone scan documented in this encounterGood Samaritan Hospital01-10-2025 History of Present illness Narrative* Darian Barclay PA-C - 07/29/2024 9:45 AM EST Orthopaedic Oncology New Patient Evaluation Chief Complaint: Bone lesion right shoulder Referring Physician: Paulina Jacobson CNP History of Present Illness: Ofe [...] right shoulder. She was sent to the [facility] for further workup. She had up seeing [...] for years- had BX in 2018 at [facility]. These have been monitored every couple [...] was reviewed. The exam was done at [facility]. Images show expansile lesion in the anterosuperior [...] first Darian Barclay PA-C documented in this encounterGood Samaritan Hospital01-10-2025 NoteOhiohealth Grant Medical Center12-19-2024 History of Present illness Narrative* Paulina Jacobson [...] pain 1mo later Seen by PCP in [place] who obtained an MRI 07/01/24 MRI Any [...] results and radiologist's interpretation, available in the [facility] health record. Images were reviewed with the [...] plan as detailed above. Paulina Jacobson MD [facility] Sports and Exercise Medicine Medical Decision Making documented in this encounterGood Samaritan Hospital12-19-2024 Instructions* Patient Instructions* Paulina Jacobson MD [...] known as a subacromial decompression. Adapted from [employer]. documented in this encounterGood Samaritan Hospital12-19-2024 NoteOhiohealth Grant Medical Center12-19-2024 NoteOhio[facility] Center12-19-2024 History of Present illness Narrative* Ellen Woods, [...] PATIENT PRESENTS WITH AN IMPLANTABLE OR ATTACHED CAMERA SYSTEMS ENGINEER: No RADIOLOGY DEPARTMENT: General X-ray: Exam(s) Completed: Upper Extremity X- Ray(s): Shoulder, AP / TRUE AP / AXILLARY right PERIPHERAL IV DATA: Not applicable SIGNED BY: RT Mya(R) July 07, 2024 2:33 PM documented in this encounterGood Samaritan Hospital12-05-2024 Hospital Discharge instructions Patient Education 06/23/2024 [...] include: ?8 oz (237 mL) of milk, dddwjkd-xlvkjfktrwop-yglcr milk, and calcium- fortifiedfruit juice. Calcium-fortified means [...] ?Spinach (cooked), rhubarb, beets, sweet potatoes, and Malagasy chard. ?Peanuts. ?Potato chips, kenyan fries, and baked potatoes with skin on. ?Nuts and nut products. ?Chocolate. If you regularly take a diuretic medicine, make sure to eat at least 1 or 2 servings of fruits or vegetables that are high in potassium each day. These include: ?Avocado. ?Banana. ?Avery, prune, carrot, or tomato juice. ?Baked potato. [...] magnesium, fish oil, or vitamin B6. Take hdvs-fwd-ropcjsm and prescription medicines only as told by [...] Casseroles. Pizza. Lasagna. Frozen meals. Potato chips. Brazilian fries. The items listed above may not [...] provider. Document Revised: 10/16/2022 Document Reviewed: 10/16/2022 [employer] Patient Education 2023 [employer]. Follow Up Care 06/08/2024 14:17:58 With:Cedric FLOYD, BUDDY Garcia, URO Address: When: Unknown [facility] [place] 12-05-2024 NotePatient Education Nephrology Dietary Guidelines to [...] ? 8 oz (237 mL) of milk, woickba-fwckseskythz-ufyem milk, and calcium- fortifiedfruit juice. Calcium-fortified means [...] Spinach (cooked), rhubarb, beets, sweet potatoes, and Malagasy chard. ? Peanuts. ? Potato chips, kenyan fries, and baked potatoes with skin on. ? Nuts and nut products. ? Chocolate. ??? If you regularly take a diuretic medicine, make sure to eat at least 1 or 2 servings of fruits or vegetables that are high in potassium each day. These include: ? Avocado. ? Banana. ? Avery, prune, carrot, or tomato juice. ? Baked [...] fish oil, or vitamin B6. ??? Take zefi-gng-ayampzb and prescription medicines only as told by your health (more content not included)...[facility]11-19-2024 Hospital Discharge instructions Additional Instructions Take Tylenol [...] stool softeners. 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/2009 Coordination impairment BRAIN SX - 2008 Degenerative disc disease, cervical 02/08/2010 Degenerative disc disease, lumbar 01/30/2014 Depression ([facility]) 02/09/2008 Dizziness 08/11/2018 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 H/O section H/O eye surgery right; 2006, 2007 Hemangioma 08/09/2009 History of medical problems thyroid Lack of coordination 01/25/2008 Migraine ([facility]) 05/26/2017 Neck pain 08/11/2018 Other disorders of facial nerve 02/09/2008 Panic attacks ([facility]) Sleep disturbance 01/05/2013 Snoring 07/16/2015 Stroke ([facility]) 05/26/2017 Tension type headache 08/11/2018 Trigeminal neuralgia ([facility]) 10/20/2014 Past Surgical History: Procedure [...] if furtherquestions arise, Sincerely, Елена Griffin MD [facility] Provider Attestation - Scribe documentation All medical record entries made by the Scribe were at my direction and personally dictated by me. Ihave reviewed the chart and agree that the record accurately reflects my personal performance of the history, physical exam, discussion and plan. documented in this encounterMagruder Hospital Work Phone: 1(470) 530-327911-08-2024 Instructions* Patient Instructions* Izzy Stevens LPN - [...] ordered as needed only documented in this encounterMagruder Hospital Work Phone: 1(330) 348-416310-29-2024 Hospital Discharge instructions Patient Education 05/17/2024 13:44:18 [...] Follow these instructions at home: Medicines Take tqpa-nbo-qkgoeor and prescription medicines only as told by [...] pain is severe. ?Do not take other psjo-ynu-rdfjtst pain medicines in addition to prescription pain [...] to keep your urine pale yellow. Take htdo-emm-ptqjqrq or prescription medicines. Eat foods that are [...] provider. Document Revised: 01/28/2023 Document Reviewed: 01/28/2023 [employer] Patient Education 2023 [employer]. Follow Up Care 05/16/2024 13:01:03 With:ANN FORTE PA-C, URL Address: [address] [place] [address] Business (1) When: only if needed [facility] 10-29-2024 NotePatient Education Orthopedics [...] these instructions at home: Medicines ??? Take jvqv-tfi-ewdxoxa and prescription medicines only as told by [...] is severe. ? Do not take other sfrl-wqz-vqrsfeg pain medicines in addition to prescription pain [...] keep your urine pale yellow. ??? Take ldul-sqn-pjubcnu or prescription medicines. ??? Eat foods that [...] provider. Document Revised: 01/28/2023 Document Reviewed: 01/28/2023 [employer] Patient Education ? 2023 [employer].[facility] 05-16-2024 History of Present illness Narrative* THAD Rosa - 05/16/2024 3:40 PM EDT Subjective Ofe Saravia is a 68 y.o. 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 RLE Strength illopsoas, quadriceps, tibialis [...] above. She previouslyfollowed with Dr. Monterroso at [facility] and neuro ophthalmology. Hypnopompic hallucination History [...] has tried botox in the past at [facility]. She weaned gabapentin and is [...] new or worsening symptoms documented in this encounterSaint Louis University HospitalZejlpckfaq43-12-1623 Hospital Discharge instructions Patient Education 04/13/2024 11:44:08 [...] Follow these instructions at home: Medicines Take xlwc-anc-sgglvhx and prescription medicines only as told by [...] provider. Document Revised: 10/15/2022 Document Reviewed: 10/15/2022 [employer] Patient Education 2023 [employer]. Follow Up Care 04/05/2024 10:57:54 With:Cedric FLOYD, CORNELIUS GarciaL, URO Address: When: Unknown Comments:Jim menjivar [facility] 09-25-2024 NotePatient Education Urology [...] these instructions at home: Medicines ? Take atwo-pve-egqnwwm and prescription medicines only as told by [...] healthy diet. 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 José Balbuena MD [facility] Head and Neck [facility] Facial Plastic and Reconstructive Surgery ADDENDUM: I performed the procedure and discussed the patient's management with the fellow. I reviewed and edited the note and agree with the documented findings and treatment plan. Elizabeth Balbuena MD [facility] Head and Neck Auditor/Quality, Facial Plastic and Microvascular Surgery UNIVERSAL PROTOCOL [...] applicable. Elizabeth Balbuena MD documented in this encounterGood Samaritan Hospital09-11-2024 Nurse Note* Paulina Jerez RN - 03/30/2024 11:30 AM EDT Tobacco Use: 1.5 packs/day, for 18 years. Quit 07/20/1999. Types: Cigarettes Was smoking cessation packet given? N/A - Patient is a non-smoker or quit >1 year ago. Was a referral initiated?N/A Patient is a non-smoker. Paulina Jerez RN March 30, 2024 11:31 AM [facility]09-11-2024 Nurse Note* Paulina Jerez RN - 03/30/2024 11:30 AM EDT Tobacco Use: 1.5 packs/day, for 18 years. Quit 07/20/1999. Types: Cigarettes Was smoking cessation packet given? N/A - Patient is a non-smoker or quit >1 year ago. Was a referral initiated?N/A Patient is a non-smoker. Paulina Jerez RN March 30, 2024 11:31 AM documented in this encounterGood Samaritan Hospital08-29-2024 Hospital Discharge instructions Patient Education 03/17/2024 13:15:00 Kidney Stones, Yluq-fe-Sswd Kidney Stones Kidney stones are rock-like masses [...] Follow these instructions at home: Medicines Take wjbc-qeq-xhtzbbr and prescription medicines only as told by [...] provider. Document Revised: 03/10/2022 Document Reviewed: 03/10/2022 [employer] Patient Education 2022 [employer]. Follow Up Care 03/17/2024 09:52:31 With:Cedric FLOYD, BUDDY Garcia, URO Address: [address] [facility] [address] [place] [place] [phone] When: Unknown [facility] 08-29-2024 NotePatient Education Urology [...] these instructions at home: Medicines ? Take ckee-sjp-nilwqjm and prescription medicines only as told by [...] provider. Document Revised: 03/10/2022 Document Reviewed: 03/10/2022 [employer] Patient Education ? 2022 [employer].[facility] 06-24-2023 Hospital Discharge instructions Patient Education 06/24/2023 [...] include: ?8 oz (237 mL) of milk, zprbvzt-btqaczlprdej-gcspg milk, and calcium- fortifiedfruit juice. Calcium-fortified means [...] ?Spinach (cooked), rhubarb, beets, sweet potatoes, and Malagasy chard. ?Peanuts. ?Potato chips, kenyan fries, and baked potatoes with skin on. ?Nuts and nut products. ?Chocolate. If you regularly take a diuretic medicine, make sure to eat at least 1 or 2 servings of fruits or vegetables that are high in potassium each day. These include: ?Avocado. ?Banana. ?Avery, prune, carrot, or tomato juice. ?Baked potato. [...] magnesium, fish oil, or vitamin B6. Take mfxb-yjn-uiwsqke and prescription medicines only as told by [...] Casseroles. Pizza. Lasagna. Frozen meals. Potato chips. Brazilian fries. The items listed above may not [...] provider. Document Revised: 10/16/2022 Document Reviewed: 10/16/2022 [employer] Patient Education 2022 [employer]. Follow Up Care 11/26/2022 08:11:41 With:Cedric FLOYD, BUDDY Garcia, URO Address: [address] [phone] When: Unknown Comments:6 mos w/ CONCETTA and CEASAR [facility] [place] 09-22-2023 Nurse Note* Macy Leyva RN - 04/10/2023 9:45 AM EDT Tobacco Use: 1.5 packs/day, for 18 years. Quit 07/20/1999. Types: Cigarettes Was smoking cessation packet given? N/A - Patient is a non-smoker or quit >1 year ago. Was a referral initiated?N/A Patient is a non-smoker documented [facility] encounter[facility] History of Present illness Narrative* Adina Rosales MD - 04/10/2023 9:30 AM EDT [facility] [place] Facial Plastic and Reconstructive Surgery Name: Ofe [...] orbicularis oculi, zygomaticus major, levator labii and commission sales associate - Severe lateral pull of upper lip [...] (2u, 4 sites) = 8 U Left commission sales associate (3u, 2 site) = 6 U Left [...] MD Facial Plastic and Reconstructive Surgery Fellow [facility], [facility] [place] documented in this encounterGood [facility]05-[facility]23 Hospital Discharge instructions Patient Education 11/26/2022 [...] include: ?8 oz (237 mL) of milk, pxlrmue-sazbgokmgsib-kimik milk, and calcium- fortifiedfruit juice. Calcium-fortified means [...] ?Spinach (cooked), rhubarb, beets, sweet potatoes, and Malagasy chard. ?Peanuts. ?Potato chips, kenyan fries, and baked potatoes with skin on. ?Nuts and nut products. ?Chocolate. If you regularly take a diuretic medicine, make sure to eat at least 1 or 2 servings of fruits or vegetables that are high in potassium each day. These include: ?Avocado. ?Banana. ?Avery, prune, carrot, or tomato juice. ?Baked potato. [...] magnesium, fish oil, or vitamin B6. Take swkc-sak-izoptvx and prescription medicines only as told by [...] Casseroles. Pizza. Lasagna. Frozen meals. Potato chips. Brazilian fries. The items listed above may not [...] Document Reviewed: 03/17/2022 Elsevier Patient Education 2022 [employer] Follow Up Care 07/23/2022 11:38:48 With:Cedric FLOYD, BUDDY Garcia, URO Address: When: Unknown [facility] 01-04-2023 Hospital Discharge instructions Patient Education 07/23/2022 11:37:41 Kidney Stones, Wdvb-ku-Bsdr Kidney Stones Kidney stones are rock-like masses [...] Follow these instructions at home: Medicines Take gqxo-hyu-evkndwv and prescription medicines only as told by [...] 12/22/2008 Document Revised: 11/22/2019 Document Reviewed: 11/22/2019 [employer] Patient Education 2020 [employer]. Follow Up Care 01/15/2022 10:50:51 With:Cedric FLOYD, Kera Regalado, URL, URO Address: [address], [facility] [place] [address] [phone] When:Within 3 Month(s) Comments:sched CT AP w/o [facility] 10-28-2022 History of Present illness Narrative* Chelsey Lowery RN - 05/16/2022 1:36 PM EDT Botox 50U with 0.5ml NaCl Lot [id number] Exp 11/2024 * Elizabeth Balbuena MD - 05/16/2022 1:30 PM EDT [facility] [place] Facial Plastic and Reconstructive Surgery Name: Ofe [...] orbicularis oculi, zygomaticus major, levator labii and commission sales associate -Severe lateral pull of upper lip to [...] (2u, 4 site) = 8 u Left commission sales associate (3u, 2 site) = 6 U Left [...] for repeat botox injections Elizabeth Balbuena MD [facility] Neck Auditor/Quality, Facial Plastic and Microvascular Surgery By signing my name below, I, Adrian Sepulveda, attest that this documentation has been prepared under the direction and in the presence of Dr. Elizabeth Balbuena. Electronically signed, Esteban Middleton May 16, 2022 2:59 PM I have reviewed and edited above documentation and it accurately reflects assessment, work and decisions made by me. Elizabeth Balbuena MD [facility] Head and Neck Auditor/Quality, Facial Plastic and Microvascular Surgery UNIVERSAL PROTOCOL [...] applicable. Elizabeth Balbuena MD documented in this encounterGood [facility]aritan Hospital10-28-2022 Nurse Note* Nina Orta LPN - 05/16/2022 1:36 PM EDT Tobacco Use: 1.5 packs/day, for 18 years. Quit 07/20/1999. Types: Cigarettes Was smoking cessation packet given? N/A - Patient is a non-smoker or quit >1 year ago. Was a referral initiated?N/A Patient is a non-smoker documented in this encounterGood [facility]06-[facility]22 Hospital Discharge instructions Patient Education 01/15/2022 10:39:00 Kidney Stones, Ohil-zo-Hrxp Kidney Stones Kidney stones are rock-like masses [...] Follow these instructions at home: Medicines Take xfci-dsj-lpywjxv and prescription medicines only as told by [...] 12/22/2008 Document Revised: 11/22/2019 Document Reviewed: 11/22/2019 [employer] Cocktail Patient Education 2020 [employer]. Follow Up Care 09/18/2021 11:24:57 With:Cedric FLOYD, BUDDY Garcia, URO Address: [address] [place] [address]- [phone] When:07/17/2022 Comments:CONCETTA MCDONOUGH [facility] 06-08-2022 NotePROCEDURE: XR FOOT RT MIN 3 VIEWS COMPARISON: 02/06/2021 HISTORY: Pain in right foot FINDINGS: BONES:No acute fracture or dislocation. Moderate enthesopathic spurring of the calcaneus. Stable corticated calcific density lateral to the cuboid SOFT TISSUES:Negative. No visible soft tissue swelling. EFFUSION:None visible. OTHER: Negative. IMPRESSION: No acute fracture Electronically authenticated by: ARMANDO HOLLINGWSORTH Date: 2021-12-25 16:49[facility] [id number] History of Present illness Narrative* Elizabeth Balbuena MD - 12/13/2021 1:23 PM EDT [facility] [place] Facial Plastic and Reconstructive Surgery Name: Ofe [...] orbicularis oculi, zygomaticus major, levator labii and commission sales associate severe lateral pull of upper lip to [...] (2u, 2 sites) = 4 U left commission sales associate (3u, 2 site) = 6 U left [...] decisions made by me. Elizabeth Balbuena MD [facility] and Neck Auditor/Quality, Facial Plastic and Microvascular Surgery Procedure: Botox Injections Informed Consent Consent Obtained: Written Finley Protocol A moment to CARE was completed [...] Visit completed when applicable documented in this encounterGood [facility]aritan Hospital05-03-2022 Miscellaneous Notes* Telephone Encounter - Patsy [...] - 1.7 ng/dL 1.0 documented in this encounterGood [facility]aritan Hospital04-26-2022 History of Present illness Narrative* Shawna [...] Shawna Flores MD, PhD documented in this encounterGood [facility]itan HospitalEvaluation + Plan note Future Appointments Appointment Date:07/23/2022 10:00:00 AM Scheduled Provider:Kera Reid MD Location[facility] Appointment Type:URO Office Visit [facility] evaluation + Plan note Future Appointments Appointment Date:10/29/2022 10:15:00 AM Scheduled Provider:Kera Reid MD Location:[facility] Appointment Type:URO Office Visit [facility] evaluation + Plan note Future Appointments Appointment Date:06/24/2023 08:00:00 AM Scheduled Provider:Kera Reid MD Location:[facility] Appointment Type:URO Office Visit [facility] evaluation + Plan note Future Appointments Appointment Date:01/06/2024 09:00:00 AM Scheduled Provider:Kera Reid MD Location:[facility] Appointment Type:URO Office Visit [facility] evaluation + Plan note Future Appointments Appointment Date:04/06/2024 11:00:00 AM Scheduled Provider:Kera Reid MD Location:[facility] Appointment Type:URO Office Visit [facility] evaluation + Plan note Future Appointments Appointment Date:04/12/2024 12:40:00 PM Scheduled Provider:ANN FORTE PA-C Location:[facility] Appointment Type:URO Office Visit Future Scheduled Tests Radiology* XR Abdomen 1 View 04/04/24 * US Renal 04/04/24 [facility] Evaluation + Plan note Future Appointments Appointment Date:09/28/2024 08:45:00 AM Scheduled Provider:Kera Reid MD Location:[facility] Appointment Type:URO Office Visit Diagnostic Tests Pending * Basic Metabolic Panel 06/23/24 Future Scheduled Tests Radiology* XR Abdomen 1 View 04/04/24 * US Renal 04/04/24 [facility] evaluation noteNo Assessments Information Available [facility] Diagnosis Multiple thyroid nodules- Primary Nontoxic multinodular goiter Obesity, Class I, BMI 30-34.9 Obesity, unspecified Vasomotor symptoms due to menopause documented [facility] this encounter [facility]* Diagnosis Facial nerve spasm- Primary [...] [facility]No assessment information available[facility] Work Phone: evaluation note* Diagnosis Facial [...] disorder, unspecified type [facility] Diagnosis Preoperative cardiovascular examination Pre-operative cardiovascular examination Mixed hyperlipidemia Acquired hypothyroidism Unspecified hypothyroidism Tremor Abnormal involuntary movements BMI 31.0-31.9,adult Former smoker Personal history of tobacco use, presenting hazards to health documented in this encounter [facility] Work Phone: Evaluation note* Diagnosis Right shoulder pain, unspecified chronicity- Primary [facility] Diagnosis Pain- Primary Generalized pain documented [facility]* Diagnosis Right shoulder pain, unspecified chronicity [facility]* Diagnosis Chronic right shoulder pain- Primary Pain in joint, shoulder region Tendinopathy of right rotator cuff [facility]* Diagnosis Chronic right shoulder pain- Primary Pain in joint, shoulder region Abnormal MRI Other nonspecific (abnormal) findings on radiological and other examinations of body structure [facility] Diagnosis Pain in right hip- [...] on imaging study [facility]* Diagnosis Pain in right hip Pain in joint, pelvic region and thigh Thyroid nodule Nontoxic uninodular goiter Thyroid nodule greater than or equal to 1 cm in diameter incidentally noted on imaging study [facility]* Diagnosis Lytic bone lesions on xray- Primary Disorder of bone and cartilage, unspecified Lytic bone lesions on xray Disorder of bone and cartilage, unspecified [facility]* Diagnosis Lytic bone lesions on xray Disorder of bone and cartilage, unspecified [facility]* Diagnosis Metastatic cancer to bone (HCC)- [...] Diarrhea Chemotherapy-induced fatigue [facility]* Diagnosis 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 neoplasm of bone and bone marrow 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) Malignant neoplasm of upper lobe, bronchus or lung [facility]* Diagnosis Metastatic cancer to bone (HCC)- Primary Secondary malignant neoplasm of bone and bone marrow Malignant neoplasm of overlapping sites of right lung (HCC) Malaise and fatigue Other malaise and fatigue [facility]* Diagnosis Palliative care by specialist- Primary Metastatic cancer to bone (HCC) Secondary malignant neoplasm of bone and bone marrow Constipation due to opioid therapy Lung mass Swelling, mass, or lump in chest Neoplasm related pain Neoplasm related pain (acute) (chronic) Anorexia Chronic obstructive pulmonary disease, unspecified COPD type (HCC) SOB (shortness of breath) Shortness of breath [facility]* Diagnosis Panic disorder- Primary Panic disorder without agoraphobia [facility]* Diagnosis 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 neoplasm of bone and bone marrow [facility]* Diagnosis 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, unspecified site Hallucination, hypnopompic Hallucinations History of stroke Transient ischemic attack (TIA), and cerebral infarction without residual deficits Migraine without aura and without status migrainosus, not intractable (CMS/HCC) Trigeminal neuralgia (CMS/HCC) Trigeminal neuralgia Anxiety disorder, unspecified type Tremor Abnormal involuntary movements [facility]* Diagnosis Metastatic cancer to bone (HCC)- Primary Secondary malignant neoplasm of bone and bone marrow Malignant neoplasm of overlapping sites of right lung (HCC) Encounter for antineoplastic chemotherapy Encounter for immunotherapy [facility]* Diagnosis Malignant neoplasm of overlapping sites of right lung (HCC)- Primary [facility]* Diagnosis 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 neoplasm of bone and bone marrow 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) Malignant neoplasm of upper lobe, bronchus or lung [facility]* Diagnosis Metastatic cancer to bone (HCC)- Primary Secondary malignant neoplasm of bone and bone marrow Malignant neoplasm of overlapping sites of right lung (HCC) documented [facility] this [facility]* Diagnosis Malignant neoplasm of overlapping sites of right lung (HCC)- Primary [facility]* Diagnosis Metastatic cancer to bone (HCC) Secondary malignant neoplasm of bone and bone marrow Malignant neoplasm of overlapping sites of right lung (HCC) documented in this [facility]* Diagnosis Lung mass- Primary Swelling, mass, or lump in chest Malignant neoplasm of overlapping sites of right lung (HCC) Other mixed anxiety disorders documented [facility] this [facility]* Diagnosis 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, unspecified site Migraine without aura and without status migrainosus, not intractable (CMS/HCC) Trigeminal neuralgia (CMS/HCC) Trigeminal neuralgia History of stroke Transient ischemic attack (TIA), and cerebral infarction without residual deficits Anxiety disorder, unspecified type Tremor Abnormal involuntary movements [facility]* Diagnosis Malignant neoplasm of overlapping sites of right lung (HCC)- Primary [facility]* Diagnosis Palliative care by specialist- Primary Constipation due to opioid therapy Neoplasm related pain Neoplasm related pain (acute) (chronic) Metastatic cancer to bone (HCC) Secondary malignant neoplasm of bone and bone marrow Lung mass Swelling, mass, or lump in chest [facility]* Diagnosis Malignant neoplasm of overlapping sites of right lung (HCC)- Primary Metastatic cancer to bone (HCC) Secondary malignant neoplasm of bone and bone marrow Malaise and fatigue Other malaise and fatigue Pain of right upper arm Pain in limb Swelling of arm Swelling of limb [facility] Diagnosis 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)- Primary Metastatic cancer to bone (HCC) Secondary malignant neoplasm of bone and bone marrow [facility]* Diagnosis Malignant neoplasm of overlapping sites of right lung (HCC)- Primary [facility]* Diagnosis Metastatic cancer to bone (HCC) Secondary malignant neoplasm of bone and bone marrow documented [facility]* Diagnosis Metastatic cancer to bone (HCC)- Primary Secondary malignant neoplasm of bone and bone marrow [facility] Diagnosis 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)- Primary Other fatigue [facility]* Diagnosis 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 neoplasm of bone and bone marrow 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) Malignant neoplasm of upper lobe, bronchus or lung documented in this encounter [facility]* Diagnosis 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 neoplasm of bone and bone marrow documented in this encounter [facility]* Diagnosis 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)- Primary documented in this [facility]* Diagnosis Encounter for education- Primary Counseling NOS documented in this [facility]* Diagnosis Onset Date Resolution Status Admit Date Arteriovenous malformation (AVM) chronicJuly 2024 3:41pmHistory of strokechronicJuly 2024 3:41pm Migraine without aura and without status migrainosus, not intractablechronicJu2024 3:41pmTremorchronicJuly 2024 3:41pmTrigeminal neuralgiachronic Maria M 2024 3:41pmHypnopompic hallucinationresolvedJuly 2024 3:41pm [facility] Work Phone: Evaluation note* Diagnosis Facial nerve motor disorder- Primary Facial nerve disorder, unspecified Clonic hemifacial spasm, 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 documented [facility] this [facility]* Diagnosis 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 neoplasm of bone and bone marrow [facility] Diagnosis 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 neoplasm of bone and bone marrow [facility] Diagnosis 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 neoplasm of bone and bone marrow [facility] Diagnosis Palliative care by specialist- [...] unspecified site (HCC) documented in this encounter [facility] note* Diagnosis Multiple thyroid nodules- Primary Nontoxic multinodular goiter Acquired hypothyroidism Unspecified hypothyroidism documented in this encounter [facility] note* Diagnosis 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)- Primary Other fatigue documented in this encounter [facility] note* Diagnosis 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 neoplasm of bone and bone marrow documented in this encounter [facility] course Narrative No data available for this section [facility] Hospital Discharge instructions No data available for this section [facility] Progress note No data available for this section [facility] reason for referral (narrative)* Diagnostic Procedure Only (Routine) - AuthorizedSpecialtyDiagnoses / ProceduresReferred By Contact Referred To ContactXR IMAGING Diagnoses Right shoulder pain, unspecified chronicity Procedures XR SHOULDER ORTHO 4V AP/TRUE AP/LAT/OUTLET RIGHT RADEX SHOULDER COMPLETE MINIMUM 2 VIEWS Paulina Jacobson MD [address] [place] [address] [place] [address] Referral IDStatusReasonStmckenzie DateExpiration DateVisits RequestedVisits [id number] Auto-Generated Referral / [facility] for referral (narrative)* Diagnostic Procedure Only (Routine) - AuthorizedSpecialtyDiagnoses / ProceduresReferred By Contact Referred To ContactXR IMAGING Diagnoses Pain Procedures XR SHOULDER GENERAL 3V OR MORE AP/TRUE AP/OTHER RIGHT RADEX SHOULDER COMPLETE MINIMUM 2 VIEWS Paulina Jacobson MD [address] [place] [address] X[facility] Imaging [place] [address] Referral IDStatusReasonClermont DateExpiration DateVisits RequestedVisits [id number] Auto-Generated Referral / [facility] for referral (narrative)* Diagnostic Procedure Only (Routine) - New RequestSpecialtyDiagnoses / ProceduresReferred By Contact Referred To ContactMOLECULAR & FUNCTIONAL IMAGING Diagnoses Lytic bone lesions on xray Thyroid nodule Thyroid nodule greater than or equal to 1 cm in diameter incidentally noted on imaging study Procedures NM BONE WHOLE BODY BONE &/JOINT IMAGING WHOLE BODY Darian Barclay PA-C [address] [place] [address] Molecular & Functional Imaging [address] [place] [address] Referral IDStatusReasonClermont DateExpiration DateVisits RequestedVisits [id number] Request Auto-Generated Referral * MRI/CT (Routine) - New RequestSpecialtyDiagnoses / ProceduresReferred By ContactReferred To ContactCT IMAGING Diagnoses Lytic bone lesions on xray Thyroid nodule Thyroid nodule greater than or equal to 1 cm in diameter incidentally noted on imaging study Procedures CT CHEST W IVCON DIAGNOSTIC COMPUTED TOMOGRAPHY THORAX W/CONTRAST Darian Barclay PA-C [address] [place] [address] Ct Imaging [facility] Referral IDStatusReasonStmckenzie DateExpiration DateVisits RequestedVisits [id number] Request Auto-Generated Referral * MRI/CT (Routine) - New RequestSpecialtyDiagnoses / ProceduresReferred By ContactReferred To ContactCT IMAGING Diagnoses Lytic bone lesions on xray Thyroid nodule Thyroid nodule greater than or equal to 1 cm in diameter incidentally noted on imaging study Procedures CT ABD/PEL W IVCON CT ABD & PELVIS W/CONTRAST Darian Barclay PA-C [address] [place] [address] Ct Imaging [place] [address] Referral IDStatusReasonStart DateExpiration DateVisits RequestedVisits [id number] Request Auto-Generated Referral * Diagnostic Procedure Only (Routine) - ClosedSpecialtyDiagnoses / Procedures Referred By ContactReferred To ContactXR IMAGING Diagnoses Pain in right hip Thyroid nodule Thyroid nodule greater than or equal to 1 cm in diameter incidentally noted on imaging study Procedures XR HIP GENERAL 3V PELV/AP/LAT RIGHT RADEX HIP UNILATERAL WITH PELVIS 2-3 VIEWS Darian Barclay PA-C [address] [place] [address] X[facility] Imaging [place] [address] Referral IDStatusReasonStart DateExpiration DateVisits RequestedVisits [id number] Auto-Generated Referral [facility] for referral (narrative)* Diagnostic Procedure Only (Routine) - ClosedSpecialtyDiagnoses / ProceduresReferred By ContactReferred To ContactXR IMAGING Diagnoses Pain in right hip Thyroid nodule Thyroid nodule greater than or equal to 1 cm in diameter incidentally noted on imaging study Procedures XR HIP GENERAL 3V PELV/AP/LAT RIGHT RADEX HIP UNILATERAL WITH PELVIS 2-3 VIEWS Darian Barclay PA-C [address] [place] [address] X[facility] Imaging [place] [address] Referral IDStatusReasonStmckenzie DateExpiration DateVisits RequestedVisits [id number] Auto-Generated Referral / [facility] [facility]ative[facility]No reason for referral information [facility]: [facility] N[facility]* Diagnostic Procedure Only (Routine) - ClosedSpecialtyDiagnoses / ProceduresReferred By ContactReferred To ContactXR IMAGING Diagnoses Right shoulder pain, unspecified chronicity Procedures XR SHOULDER ORTHO 4V AP/TRUE AP/LAT/OUTLET RIGHT RADEX SHOULDER COMPLETE MINIMUM 2 VIEWS Paulina aJcobson MD [address] [place] [address] Xr Imaging [place] [address] Referral IDStatusReasonStmckenzie DateExpiration DateVisits RequestedVisits [id number] Auto-Generated Referral / 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 for visit Narrative* [place] Prior Authorization (Routine) - ClosedSpecialtyDiagnoses / ProceduresReferred By ContactReferred To Contact Diagnoses Malignant neoplasm of overlapping sites of right lung (HCC) Sarbajit Crowley, DO [address] [place] [address] Phone: tel: fax: Hematology/Oncology [address] [place] [address] [place] [address] Phone: tel: fax: Referral IDStatusReasonStart DateExpiration DateVisits RequestedVisits [id number] [facility] Advance Directives No Advanced Directives Records Found Advance Directive Response Recorded Date/ Time Advance Directives No May 2:55pm TypeDate RecordedPatient RepresentativeExplanationAdvance Directive(s)06/24/2019 7:51 AMAdvance Directive(s)06/01/2018 7:17 AMAdvance Directive(s)05/27/2018 1:38 PMAdvance Directive(s)12/12/2009 8:53 PMTypeDate RecordedPatient Instrumentation Technologist ExplanationAdvance Directive(s)06/24/2019 7:51 AMAdvance Directive(s)06/01/2018 7:17 AMAdvance [...] menopause Procedures CONSULT TO WOMEN'S HEALTH OFFICE/OUTPATIENT [facility] 60-74 MINUTES Shawna Flores MD, PhD [address] [place] [address] Vicki Kiser MD [address] [place] [address] Referral IDStatusReasonStart DateExpiration DateVisits RequestedVisits [id number] PCP Requested Referral Auto-Generated Referral /[id number] / ProceduresReferred By ContactReferred To Contact Diagnoses Chronic right shoulder pain Abnormal MRI Procedures CONSULT PANEL TO ORTHOPAEDICS OFFICE/OUTPATIENT [facility] 60 MINUTES Paulina Jacobson MD [address] [place] [address] López Harrison RNFA [address] [place] [address] Referral IDStatusReasonStart DateExpiration DateVisits RequestedVisits [id number] PCP Requested Referral [id number] / ProceduresReferred By ContactReferred To ContactREHAB AND SPORTS THERAPY INS Diagnoses Metastatic cancer to bone (HCC) Lytic bone lesions on xray Procedures CONSULT TO PHYSICAL THERAPY PHYSICAL THERAPY EVALUATION [facility] 45 MINS Darian Barclay PA-C [address] [place] [address] [facility] [place] [id number] [place] [address] Referral IDStatusReasonStart DateExpiration DateVisits RequestedVisits [id number] PCP Requested Referral Auto-Generated Referral /[id number] / ProceduresReferred By ContactReferred To ContactXR IMAGING Diagnoses Metastatic cancer to bone (HCC) Lytic bone lesions on xray Lung mass Procedures XR HIP SPECIAL 2V JUDET VIEWS RADEX HIP UNILATERAL WITH PELVIS 2-3 VIEWS Darian Barclay PA-C [address] [place] [address] Xr Imaging [place] [address] Referral IDStatusReasonStart DateExpiration DateVisits RequestedVisits [id number] Request Auto-Generated Referral [id number] / ProceduresReferred By ContactReferred To ContactXR IMAGING Diagnoses Metastatic cancer to bone (HCC) Lytic bone lesions on xray Lung mass Procedures XR PELVIS 1V AP RADIOLOGIC EXAMINATION PELVIS 1/2 VIEWS Darian Barclay PA-C [address] [place] [address] Xr Imaging [place] [address] Referral IDStatusReasonStart DateExpiration DateVisits RequestedVisits [id number] Request Auto-Generated Referral [id number] / ProceduresReferred By ContactReferred To ContactXR IMAGING Diagnoses Metastatic cancer to bone (HCC) Lytic bone lesions on xray Procedures XR SCAPULA 2V AP/LAT RIGHT RADEX SCAPULA COMPLETE Darian Barclay PA-C [address] [place] [address] Xr Imaging [place] [address] Referral IDStatusReasonStart DateExpiration DateVisits RequestedVisits [id number] Request Auto-Generated Referral [id number] / ProceduresReferred By ContactReferred To ContactMR IMAGING Diagnoses Malignant neoplasm of overlapping sites of right lung (HCC) Procedures MRI BRAIN WO/W IVCON MRI BRAIN BRAIN STEM W/O W/CONTRAST MATERIAL Sarabjit Crowley, [address] [place] [address] Mr Imaging [place] [address] Referral IDStatusReasonStart DateExpiration DateVisits RequestedVisits [id number] Request Auto-Generated Referral [id number] / ProceduresReferred By ContactReferred To ContactOncology Diagnoses Malignant neoplasm of overlapping sites of right lung (HCC) Procedures CONSULT TO ONCOLOGY OFFICE/OUTPATIENT [facility] 60 MINUTES Sarabjit Crowley, DO [address] [place] [address] Referral IDStatusReasonStart DateExpiration DateVisits RequestedVisits [id number] PCP Requested Referral / Medications Administered Section [...] Waste: Lab Pack - Given06/01/2022 10:32 AM [id number] UnitsFace Summary Purpose Family History No Family [...] or prosecute any alcohol or drug abuse patient.[facility] HospitalIn the event this information is protected by the Federal Confidentiality of Alcohol and Drug Abuse Patient Records regulations: The Federal rules restrict any use of the information to criminally investigate or prosecute any alcohol or drug abuse patient.[facility] HospitalIn the event this information is protected by the Federal Confidentiality of Alcohol and Drug Abuse Patient Records regulations: The Federal rules restrict any use of the information to criminally investigate or prosecute any alcohol or drug abuse patient.[facility] HospitalIn the event this information is protected by the Federal Confidentiality of Alcohol and Drug Abuse Patient Records regulations: The Federal rules restrict any use of the information to criminally investigate or prosecute any alcohol or drug abuse patient.[facility] HospitalIn the event this information is protected by the Federal Confidentiality of Alcohol and Drug Abuse Patient Records regulations: The Federal rules restrict any use of the information to criminally investigate or prosecute any alcohol or drug abuse patient.[facility] HospitalIn the event this information is protected by the Federal Confidentiality of Alcohol and Drug Abuse Patient Records regulations: The Federal rules restrict any use of the information to criminally investigate or prosecute any alcohol or drug abuse patient.[facility] HospitalIn the event this information is protected by the Federal Confidentiality of Alcohol and Drug Abuse Patient Records regulations: The Federal rules restrict any use of the information to criminally investigate or prosecute any alcohol or drug abuse patient.[facility] HospitalIn the event this information is protected by the Federal Confidentiality of Alcohol and Drug Abuse Patient Records regulations: The Federal rules restrict any use of the information to criminally investigate or prosecute any alcohol or drug abuse patient.[facility] HospitalIn the event this information is protected by the Federal Confidentiality of Alcohol and Drug Abuse Patient Records regulations: The Federal rules restrict any use of the information to criminally investigate or prosecute any alcohol or drug abuse patient.[facility] HospitalIn the event this information is protected by the Federal Confidentiality of Alcohol and Drug Abuse Patient Records regulations: The Federal rules restrict any use of the information to criminally investigate or prosecute any alcohol or drug abuse patient.[facility] the event this information is protected by the Federal Confidentiality of Alcohol and Drug Abuse Patient Records regulations: The Federal rules restrict any use of the information to criminally investigate or prosecute any alcohol or drug abuse patient.[facility] HospitalIn the event this information is protected by the Federal Confidentiality of Alcohol and Drug Abuse Patient Records regulations: The Federal rules restrict any use of the information to criminally investigate or prosecute any alcohol or drug abuse patient.[facility] HospitalIn the event this information is protected [...] or prosecute any alcohol or drug abuse patient.[facility] HospitalIn the event this information is protected by the Federal Confidentiality of Alcohol and Drug Abuse Patient Records regulations: The Federal rules restrict any use of the information to criminally investigate or prosecute any alcohol or drug abuse patient.[facility] HospitalIn the event this information is protected by the Federal Confidentiality of Alcohol and Drug Abuse Patient Records regulations: The Federal rules restrict any use of the information to criminally investigate or prosecute any alcohol or drug abuse patient.[facility] HospitalIn the event this information is protected by the Federal Confidentiality of Alcohol and Drug Abuse Patient Records regulations: The Federal rules restrict any use of the information to criminally investigate or prosecute any alcohol or drug abuse patient.[facility] HospitalIn the event this information is protected by the Federal Confidentiality of Alcohol and Drug Abuse Patient Records regulations: The Federal rules restrict any use of the information to criminally investigate or prosecute any alcohol or drug abuse patient.[facility] HospitalIn the event this information is protected by the Federal Confidentiality of Alcohol and Drug Abuse Patient Records regulations: The Federal rules restrict any use of the information to criminally investigate or prosecute any alcohol or drug abuse patient.[facility] HospitalIn the event this information is protected by the Federal Confidentiality of Alcohol and Drug Abuse Patient Records regulations: The Federal rules restrict any use of the information to criminally investigate or prosecute any alcohol or drug abuse patient.[facility] HospitalIn the event this information is protected by the Federal Confidentiality of Alcohol and Drug Abuse Patient Records regulations: The Federal rules restrict any use of the information to criminally investigate or prosecute any alcohol or drug abuse patient.[facility] HospitalIn the event this information is protected by the Federal Confidentiality of Alcohol and Drug Abuse Patient Records regulations: The Federal rules restrict any use of the information to criminally investigate or prosecute any alcohol or drug abuse patient.[facility] HospitalIn the event this information is protected by the Federal Confidentiality of Alcohol and Drug Abuse Patient Records regulations: The Federal rules restrict any use of the information to criminally investigate or prosecute any alcohol or drug abuse patient.[facility] HospitalIn the event this information is protected by the Federal Confidentiality of Alcohol and Drug Abuse Patient Records regulations: The Federal rules restrict any use of the information to criminally investigate or prosecute any alcohol or drug abuse patient.[facility] HospitalIn the event this information is protected by the Federal Confidentiality of Alcohol and Drug Abuse Patient Records regulations: The Federal rules restrict any use of the information to criminally investigate or prosecute any alcohol or drug abuse patient.[facility] HospitalIn the event this information is protected by the Federal Confidentiality of Alcohol and Drug Abuse Patient Records regulations: The Federal rules restrict any use of the information to criminally investigate or prosecute any alcohol or drug abuse patient.[facility] HospitalIn the event this information is protected by the Federal Confidentiality of Alcohol and Drug Abuse Patient Records regulations: The Federal rules restrict any use of the information to criminally investigate or prosecute any alcohol or drug abuse patient.[facility] HospitalIn the event this information is protected by the Federal Confidentiality of Alcohol and Drug Abuse Patient Records regulations: The Federal rules restrict any use of the information to criminally investigate or prosecute any alcohol or drug abuse patient.[facility] HospitalIn the event this information is protected by the Federal Confidentiality of Alcohol and Drug Abuse Patient Records regulations: The Federal rules restrict any use of the information to criminally investigate or prosecute any alcohol or drug abuse patient.[facility] HospitalIn the event this information is protected by the Federal Confidentiality of Alcohol and Drug Abuse Patient Records regulations: The Federal rules restrict any use of the information to criminally investigate or prosecute any alcohol or drug abuse patient.[facility] HospitalIn the event this information is protected by the Federal Confidentiality of Alcohol and Drug Abuse Patient Records regulations: The Federal rules restrict any use of the information to criminally investigate or prosecute any alcohol or drug abuse patient.[facility] HospitalIn the event this information is protected by the Federal Confidentiality of Alcohol and Drug Abuse Patient Records regulations: The Federal rules restrict any use of the information to criminally investigate or prosecute any alcohol or drug abuse patient.[facility] HospitalIn the event this information is protected by the Federal Confidentiality of Alcohol and Drug Abuse Patient Records regulations: The Federal rules restrict any use of the information to criminally investigate or prosecute any alcohol or drug abuse patient.[facility] HospitalIn the event this information is protected by the Federal Confidentiality of Alcohol and Drug Abuse Patient Records regulations: The Federal rules restrict any use of the information to criminally investigate or prosecute any alcohol or drug abuse patient.[facility] HospitalIn the event this information is protected by the Federal Confidentiality of Alcohol and Drug Abuse Patient Records regulations: The Federal rules restrict any use of the information to criminally investigate or prosecute any alcohol or drug abuse patient.[facility] HospitalIn the event this information is protected by the Federal Confidentiality of Alcohol and Drug Abuse Patient Records regulations: The Federal rules restrict any use of the information to criminally investigate or prosecute any alcohol or drug abuse patient.[facility] HospitalIn the event this information is protected by the Federal Confidentiality of Alcohol and Drug Abuse Patient Records regulations: The Federal rules restrict any use of the information to criminally investigate or prosecute any alcohol or drug abuse patient.[facility] HospitalIn the event this information is protected by the Federal Confidentiality of Alcohol and Drug Abuse Patient Records regulations: The Federal rules restrict any use of the information to criminally investigate or prosecute any alcohol or drug abuse patient.[facility] HospitalIn the event this information is protected by the Federal Confidentiality of Alcohol and Drug Abuse Patient Records regulations: The Federal rules restrict any use of the information to criminally investigate or prosecute any alcohol or drug abuse patient.[facility] HospitalIn the event this information is protected by the Federal Confidentiality of Alcohol and Drug Abuse Patient Records regulations: The Federal rules restrict any use of the information to criminally investigate or prosecute any alcohol or drug abuse patient.[facility] HospitalIn the event this information is protected by the Federal Confidentiality of Alcohol and Drug Abuse Patient Records regulations: The Federal rules restrict any use of the information to criminally investigate or prosecute any alcohol or drug abuse patient.[facility] HospitalIn the event this information is protected by the Federal Confidentiality of Alcohol and Drug Abuse Patient Records regulations: The Federal rules restrict any use of the information to criminally investigate or prosecute any alcohol or drug abuse patient.[facility] HospitalIn the event this information is protected by the Federal Confidentiality of Alcohol and Drug Abuse Patient Records regulations: The Federal rules restrict any use of the information to criminally investigate or prosecute any alcohol or drug abuse patient.[facility] HospitalIn the event this information is protected by the Federal Confidentiality of Alcohol and Drug Abuse Patient Records regulations: The Federal rules restrict any use of the information to criminally investigate or prosecute any alcohol or drug abuse patient.[facility] HospitalIn the event this information is protected by the Federal Confidentiality of Alcohol and Drug Abuse Patient Records regulations: The Federal rules restrict any use of the information to criminally investigate or prosecute any alcohol or drug abuse patient.[facility] HospitalIn the event this information is protected by the Federal Confidentiality of Alcohol and Drug Abuse Patient Records regulations: The Federal rules restrict any use of the information to criminally investigate or prosecute any alcohol or drug abuse patient.[facility] HospitalIn the event this information is protected by the Federal Confidentiality of Alcohol and Drug Abuse Patient Records regulations: The Federal rules restrict any use of the information to criminally investigate or prosecute any alcohol or drug abuse patient.[facility] HospitalIn the event this information is protected by the Federal Confidentiality of Alcohol and Drug Abuse Patient Records regulations: The Federal rules restrict any use of the information to criminally investigate or prosecute any alcohol or drug abuse patient.[facility] HospitalIn the event this information is protected by the Federal Confidentiality of Alcohol and Drug Abuse Patient Records regulations: The Federal rules restrict any use of the information to criminally investigate or prosecute any alcohol or drug abuse patient.[facility] HospitalIn the event this information is protected by the Federal Confidentiality of Alcohol and Drug Abuse Patient Records regulations: The Federal rules restrict any use of the information to criminally investigate or prosecute any alcohol or drug abuse patient.[facility] HospitalIn the event this information is protected by the Federal Confidentiality of Alcohol and Drug Abuse Patient Records regulations: The Federal rules restrict any use of the information to criminally investigate or prosecute any alcohol or drug abuse patient.[facility] HospitalIn the event this information is protected by the Federal Confidentiality of Alcohol and Drug Abuse Patient Records regulations: The Federal rules restrict any use of the information to criminally investigate or prosecute any alcohol or drug abuse patient.[facility] HospitalIn the event this information is protected by the Federal Confidentiality of Alcohol and Drug Abuse Patient Records regulations: The Federal rules restrict any use of the information to criminally investigate or prosecute any alcohol or drug abuse patient.[facility] HospitalIn the event this information is protected by the Federal Confidentiality of Alcohol and Drug Abuse Patient Records regulations: The Federal rules restrict any use of the information to criminally investigate or prosecute any alcohol or drug abuse patient.[facility] HospitalIn the event this information is protected by the Federal Confidentiality of Alcohol and Drug Abuse Patient Records regulations: The Federal rules restrict any use of the information to criminally investigate or prosecute any alcohol or drug abuse patient.[facility] HospitalIn the event this information is protected by the Federal Confidentiality of Alcohol and Drug Abuse Patient Records regulations: The Federal rules restrict any use of the information to criminally investigate or prosecute any alcohol or drug abuse patient.[facility] HospitalIn the event this information is protected by the Federal Confidentiality of Alcohol and Drug Abuse Patient Records regulations: The Federal rules restrict any use of the information to criminally investigate or prosecute any alcohol or drug abuse patient.[facility] HospitalIn the event this information is protected by the Federal Confidentiality of Alcohol and Drug Abuse Patient Records regulations: The Federal rules restrict any use of the information to criminally investigate or prosecute any alcohol or drug abuse patient.[facility] HospitalIn the event this information is protected by the Federal Confidentiality of Alcohol and Drug Abuse Patient Records regulations: The Federal rules restrict any use of the information to criminally investigate or prosecute any alcohol or drug abuse patient.[facility] HospitalIn the event this information is protected by the Federal Confidentiality of Alcohol and Drug Abuse Patient Records regulations: The Federal rules restrict any use of the information to criminally investigate or prosecute any alcohol or drug abuse patient.[facility] the event this information is protected by the Federal Confidentiality of Alcohol and Drug Abuse Patient Records regulations: The Federal rules restrict any use of the information to criminally investigate or prosecute any alcohol or drug abuse patient.[facility] HospitalIn the event this information is protected by the Federal Confidentiality of Alcohol and Drug Abuse Patient Records regulations: The Federal rules restrict any use of the information to criminally investigate or prosecute any alcohol or drug abuse patient.[facility] HospitalIn the event this information is protected [...] or prosecute any alcohol or drug abuse patient.[facility] HospitalIn the event this information is protected by the Federal Confidentiality of Alcohol and Drug Abuse Patient Records regulations: The Federal rules restrict any use of the information to criminally investigate or prosecute any alcohol or drug abuse patient.[facility] HospitalIn the event this information is protected by the Federal Confidentiality of Alcohol and Drug Abuse Patient Records regulations: The Federal rules restrict any use of the information to criminally investigate or prosecute any alcohol or drug abuse patient.[facility] HospitalIn the event this information is protected by the Federal Confidentiality of Alcohol and Drug Abuse Patient Records regulations: The Federal rules restrict any use of the information to criminally investigate or prosecute any alcohol or drug abuse patient.[facility] HospitalIn the event this information is protected by the Federal Confidentiality of Alcohol and Drug Abuse Patient Records regulations: The Federal rules restrict any use of the information to criminally investigate or prosecute any alcohol or drug abuse patient.[facility] HospitalIn the event this information is protected by the Federal Confidentiality of Alcohol and Drug Abuse Patient Records regulations: The Federal rules restrict any use of the information to criminally investigate or prosecute any alcohol or drug abuse patient.[facility] HospitalIn the event this information is protected by the Federal Confidentiality of Alcohol and Drug Abuse Patient Records regulations: The Federal rules restrict any use of the information to criminally investigate or prosecute any alcohol or drug abuse patient.[facility] HospitalIn the event this information is protected by the Federal Confidentiality of Alcohol and Drug Abuse Patient Records regulations: The Federal rules restrict any use of the information to criminally investigate or prosecute any alcohol or drug abuse patient.[facility] HospitalIn the event this information is protected by the Federal Confidentiality of Alcohol and Drug Abuse Patient Records regulations: The Federal rules restrict any use of the information to criminally investigate or prosecute any alcohol or drug abuse patient.[facility] HospitalIn the event this information is protected by the Federal Confidentiality of Alcohol and Drug Abuse Patient Records regulations: The Federal rules restrict any use of the information to criminally investigate or prosecute any alcohol or drug abuse patient.[facility] HospitalIn the event this information is protected by the Federal Confidentiality of Alcohol and Drug Abuse Patient Records regulations: The Federal rules restrict any use of the information to criminally investigate or prosecute any alcohol or drug abuse patient.[facility] HospitalIn the event this information is protected by the Federal Confidentiality of Alcohol and Drug Abuse Patient Records regulations: The Federal rules restrict any use of the information to criminally investigate or prosecute any alcohol or drug abuse patient.[facility] HospitalIn the event this information is protected by the Federal Confidentiality of Alcohol and Drug Abuse Patient Records regulations: The Federal rules restrict any use of the information to criminally investigate or prosecute any alcohol or drug abuse patient.[facility] HospitalIn the event this information is protected by the Federal Confidentiality of Alcohol and Drug Abuse Patient Records regulations: The Federal rules restrict any use of the information to criminally investigate or prosecute any alcohol or drug abuse patient.[facility] HospitalIn the event this information is protected by the Federal Confidentiality of Alcohol and Drug Abuse Patient Records regulations: The Federal rules restrict any use of the information to criminally investigate or prosecute any alcohol or drug abuse patient.[facility] HospitalIn the event this information is protected by the Federal Confidentiality of Alcohol and Drug Abuse Patient Records regulations: The Federal rules restrict any use of the information to criminally investigate or prosecute any alcohol or drug abuse patient.[facility] HospitalIn the event this information is protected by the Federal Confidentiality of Alcohol and Drug Abuse Patient Records regulations: The Federal rules restrict any use of the information to criminally investigate or prosecute any alcohol or drug abuse patient.[facility] HospitalIn the event this information is protected by the Federal Confidentiality of Alcohol and Drug Abuse Patient Records regulations: The Federal rules restrict any use of the information to criminally investigate or prosecute any alcohol or drug abuse patient.[facility] HospitalIn the event this information is protected by the Federal Confidentiality of Alcohol and Drug Abuse Patient Records regulations: The Federal rules restrict any use of the information to criminally investigate or prosecute any alcohol or drug abuse patient.[facility] HospitalIn the event this information is protected by the Federal Confidentiality of Alcohol and Drug Abuse Patient Records regulations: The Federal rules restrict any use of the information to criminally investigate or prosecute any alcohol or drug abuse patient.[facility] HospitalIn the event this information is protected by the Federal Confidentiality of Alcohol and Drug Abuse Patient Records regulations: The Federal rules restrict any use of the information to criminally investigate or prosecute any alcohol or drug abuse patient.[facility] HospitalIn the event this information is protected by the Federal Confidentiality of Alcohol and Drug Abuse Patient Records regulations: The Federal rules restrict any use of the information to criminally investigate or prosecute any alcohol or drug abuse patient.[facility] HospitalIn the event this information is protected by the Federal Confidentiality of Alcohol and Drug Abuse Patient Records regulations: The Federal rules restrict any use of the information to criminally investigate or prosecute any alcohol or drug abuse patient.[facility] HospitalIn the event this information is protected by the Federal Confidentiality of Alcohol and Drug Abuse Patient Records regulations: The Federal rules restrict any use of the information to criminally investigate or prosecute any alcohol or drug abuse patient.[facility] HospitalIn the event this information is protected by the Federal Confidentiality of Alcohol and Drug Abuse Patient Records regulations: The Federal rules restrict any use of the information to criminally investigate or prosecute any alcohol or drug abuse patient.[facility] HospitalIn the event this information is protected by the Federal Confidentiality of Alcohol and Drug Abuse Patient Records regulations: The Federal rules restrict any use of the information to criminally investigate or prosecute any alcohol or drug abuse patient.[facility] HospitalIn the event this information is protected by the Federal Confidentiality of Alcohol and Drug Abuse Patient Records regulations: The Federal rules restrict any use of the information to criminally investigate or prosecute any alcohol or drug abuse patient.[facility] HospitalIn the event this information is protected by the Federal Confidentiality of Alcohol and Drug Abuse Patient Records regulations: The Federal rules restrict any use of the information to criminally investigate or prosecute any alcohol or drug abuse patient.[facility] HospitalIn the event this information is protected by the Federal Confidentiality of Alcohol and Drug Abuse Patient Records regulations: The Federal rules restrict any use of the information to criminally investigate or prosecute any alcohol or drug abuse patient.[facility] HospitalIn the event this information is protected by the Federal Confidentiality of Alcohol and Drug Abuse Patient Records regulations: The Federal rules restrict any use of the information to criminally investigate or prosecute any alcohol or drug abuse patient.[facility] HospitalIn the event this information is protected by the Federal Confidentiality of Alcohol and Drug Abuse Patient Records regulations: The Federal rules restrict any use of the information to criminally investigate or prosecute any alcohol or drug abuse patient.[facility] HospitalIn the event this information is protected by the Federal Confidentiality of Alcohol and Drug Abuse Patient Records regulations: The Federal rules restrict any use of the information to criminally investigate or prosecute any alcohol or drug abuse patient.[facility] HospitalIn the event this information is protected by the Federal Confidentiality of Alcohol and Drug Abuse Patient Records regulations: The Federal rules restrict any use of the information to criminally investigate or prosecute any alcohol or drug abuse patient.[facility] HospitalIn the event this information is protected by the Federal Confidentiality of Alcohol and Drug Abuse Patient Records regulations: The Federal rules restrict any use of the information to criminally investigate or prosecute any alcohol or drug abuse patient.[facility] HospitalIn the event this information is protected by the Federal Confidentiality of Alcohol and Drug Abuse Patient Records regulations: The Federal rules restrict any use of the information to criminally investigate or prosecute any alcohol or drug abuse patient.[facility] HospitalIn the event this information is protected by the Federal Confidentiality of Alcohol and Drug Abuse Patient Records regulations: The Federal rules restrict any use of the information to criminally investigate or prosecute any alcohol or drug abuse patient.[facility] HospitalIn the event this information is protected by the Federal Confidentiality of Alcohol and Drug Abuse Patient Records regulations: The Federal rules restrict any use of the information to criminally investigate or prosecute any alcohol or drug abuse patient.[facility] HospitalIn the event this information is protected by the Federal Confidentiality of Alcohol and Drug Abuse Patient Records regulations: The Federal rules restrict any use of the information to criminally investigate or prosecute any alcohol or drug abuse patient.[facility] HospitalIn the event this information is protected by the Federal Confidentiality of Alcohol and Drug Abuse Patient Records regulations: The Federal rules restrict any use of the information to criminally investigate or prosecute any alcohol or drug abuse patient.[facility] Reason for Visit (unrecogniz ed section and content) ReasonCommentsProcedureSpecialtyDiagnoses / ProceduresReferred By Contact Referred To ContactENT-OTOLARYNGOLOGY 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 Renewal medical botox Procedures [facility] NRV UNIL BOTULINUM TOXIN A PER 1 UNIT Med botox 100 units every 3-4 months for 1 year Elizabeth Balbuena MD [address] [id number] Elizabeth Balbuena MD [address] [place] [address] Referral IDStatusReasonStart DateExpiration DateVisits RequestedVisits [id number]/13/202312/31/[id number] nerve spasmFacial nerve spasm, BotoxSpecialtyDiagnoses / ProceduresReferred By Contact Referred [facility]-FACIAL PLASTICS Diagnoses 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, unspecified Alcala's palsy Repeat medical botox injections Procedures BOTULINUM TOXIN A PER 1 UNIT [facility] INN[facility] NRV UNIL RENEWAL REQUEST INJECTABLE (100 UNITS EVERY 3-4 MONTHS FOR 1 YR) [place] [address] [place] [address] Elizabeth Balbuena MD [address] [place] [address] Referral IDStatusReasonStart DateExpiration DateVisits RequestedVisits [id number]/27/20224/7/[id number] Problem ReasonCommentsResultsReasonCommentsBotox InjectionReferral IDStatusReasonStart DateExpiration DateVisits RequestedVisits [id number] Review [id number] UpBotoxReferral IDStatusReasonStart DateExpiration DateVisits RequestedVisits [id number]/13/[id number] NeuralgiaMigraineStrokeReasonCommentsNew Patient VisitAbnormal EKGSpecialtyDiagnoses / ProceduresReferred By Contact Referred To Contact Diagnoses Preoperative cardiovascular examination Procedures ECG 12 Lead Елена Griffin MD [address] [facility] [address] [place] [address] Phone: tel: fax: Referral IDStatusReasonStart DateExpiration DateVisits RequestedVisits [id number]/8/202411/8/[id number]xs XRReason CommentsNewPainReasonCommentsTumor/MassPainNewReasonCommentsRadio Gen A21 SpecialtyDiagnoses / ProceduresReferred By ContactReferred To ContactXR IMAGING Diagnoses Pain in right hip Thyroid nodule Thyroid nodule greater than or equal to 1 cm in diameter incidentally noted on imaging study Procedures XR HIP GENERAL 3V PELV/AP/LAT RIGHT RADEX HIP UNILATERAL WITH PELVIS 2-3 VIEWS Darain Barclay, PAInnaC [address] [place] [address] Xr [address] [address] Referral IDStatusReasonStart DateExpiration DateVisits RequestedVisits [id number] Auto-Generated Referral /[id number] DateCommentsBiopsy RequestBiopsy Request 07/29/2024ReasonOnset DateCommentsRefill Ggdelzv6508/11/2024ReasonComments Established PatientPainTumor/MassReasonCommentsConsultReasonCommentsPain Tumor/MassNew PatientReasonCommentsConsultReasonCommentsAppointmentReason CommentsPatient EducationSpecialtyDiagnoses / ProceduresReferred By Contact Referred To ContactOncology Diagnoses Malignant neoplasm of overlapping sites of right lung (HCC) Procedures CONSULT TO ONCOLOGY OFFICE/OUTPATIENT [facility] 60 MINUTES Sarabjit Crowley DO [address] [place] [address] Referral IDStatusReasonStart DateExpiration DateVisits RequestedVisits [id number] PCP Requested Referral [id number]YctekkfiTnanv Time Treatment Education ReasonCommentsCare CoordinationpainReasonCommentsMedication ProblemReason CommentsCare [...] feel free to stop in or call [phone] for any questions you may have. IReasonCommentsCare CoordinationReasonCommentsCare CoordinationClinical updateReasonCommentsCare CoordinationHospital d/c follow up callReasonCommentsCare ZtmxatynonhsF4P4 treatment follow up callReasonComments Care CoordinationRash, shortness [...] ATTENUATION SKULL BASE MID-THIGH Isaac Gracia MD [address] [place] [address] [place] [address] Phone: tel: fax: Molecular Imaging [address] [place] [address] Phone: tel: Referral IDStatusReasonStart DateExpiration DateVisits RequestedVisits [id number] Auto-Generated Referral /[id number]lle MalformationReasonCommentsLung CancerReasonCommentsRadiology USReasonCommentsCare CoordinationThyroid nodules SpecialtyDiagnoses / ProceduresReferred By ContactReferred To ContactMOLECULAR & FUNCTIONAL IMAGING Diagnoses Metastatic cancer to bone (HCC) Procedures NM PET/CT SKULL-THIGH SUBSEQUENT PET IMAGING CT ATTENUATION SKULL BASE MID-THIGH Isaac Gracia MD [address] [place] [address] [place] [address] Phone: tel: fax: Molecular Imaging [address] [place] [address] Phone: tel: Referral IDStatusReasonStart DateExpiration DateVisits RequestedVisits [id number] Auto-Generated Referral /[id number] AppointmentReasonCommentsMedication AuthorizationLumakrasReasonCommentsCare CoordinationMedication QuestionReason Onset DateCommentsnew problem R shoulderNew problem/SIM R shoulderSimulation Request Form02/02/2025ReasonCommentsOral Anti-cancer Agent EducationSotorasib ReasonCommentsDrug/Drug InteractionLumakras and primidoneReasonComments Medication UpdateReasonCommentsFollow UpMedical botoxSpecialtyDiagnoses / ProceduresReferred By ContactReferred To ContactENT-OTOLARYNGOLOGY 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 [address] [facility] [address] [place] [address] PCP - General08/24/01Team MemberRelationshipSpecialtyStart DateEnd Date Asya Clements Jr. [address] [facility] [address] [place] [address] PCP - General08/24/01Team MemberRelationshipSpecialtyStart DateEnd Date Asya Clements Jr. [address] [facility] [address] [place] [address] PCP - General08/24/01Team MemberRelationshipSpecialtyStart DateEnd Date Asya Clements Jr. [address] [facility] [address] [place] [address] PCP - General08/24/01Team MemberRelationshipSpecialtyStart DateEnd Date Asya Clements Jr. [address] [facility] [address] [place] [address] PCP - General08/24/01Team MemberRelationshipSpecialtyStart DateEnd Date Asya Clements Jr. [address] [facility] [address] [place] [address] PCP - General08/24/01 Team Status: Inactive Member [...] DateEnd Date Asya Clements Jr. DO [address] [place] [address] PCP - General08/24/01Team MemberRelationshipSpecialtyStart DateEnd Date Asya Clements MD [address] [place] [address] PCP - GeneralInternal Medicine01/07/23Team MemberRelationshipSpecialtyStart Date End Date Asya Clements MD [address] [place] [address] PCP - GeneralInternal Medicine01/07/23Team MemberRelationshipSpecialtyStart Date End Date Asya Clements, DO PCP - General12/21/09Team MemberRelationshipSpecialtyStart DateEnd Date Asya Clements Jr., DO [address] [place] [address] PCP - General08/24/01 Asya Clements Jr., DO [address] [place] [address] ReferringInternal Zuyfqrom08/18/24Team MemberRelationshipSpecialtyStart DateEnd Date Asya Clements Jr., DO [address] [place] [address] PCP - General08/24/01 Asya Clements Jr., DO [address] [place] [address] ReferringInternal Maprlkrv16/18/24Team MemberRelationshipSpecialtyStart DateEnd Date Asya Clements Jr., DO [address] [place] [address] PCP - General08/24/01 Asya Clements Jr., DO [address] [place] [address] ReferringInternal Qesokuhf10/18/24Team MemberRelationshipSpecialtyStart DateEnd Date Asya Clements Jr., DO [address] [place] [address] PCP - General2 Asya Clements Jr., DO [address] [place] [address] ReferringInternal Xbhlfzlz03/18/24Te MemberRelationshipSpecialtyStart DateEnd Date Asya Clements Jr., DO [address] [place] [address] [facility] - General08/24/01 Asya Clements Jr., DO [address] [place] [address] ReferringInternal Rmehanxv93/18/24Team MemberRelationshipSpecialtyStart DateEnd Date Asya Clements Jr., DO [address] [place] [address] PCP - General08/24/01 Asya Clements Jr., DO [address] [place] [address] ReferringInternal Ztongyjt69/18/24Team MemberRelationshipSpecialtyStart DateEnd Date Asya Clements Jr., DO [address] [place] [address] PCP - General08/24/01 Asya Clements Jr., DO [address] [place] [address] ReferringInternal Ovbzjxxp40/18/24Team MemberRelationshipSpecialtyStart DateEnd Date Asya Clements Jr., DO [address] [place] [address] PCP - General08/24/01 Asya Clements Jr., DO [address] [place] [address] ReferringInternal Cdptkbvy88/18/24Team MemberRelationshipSpecialtyStart DateEnd Date Asya Clements Jr., DO [address] [place] [address] PCP - General08/24/01 Asya Clements Jr., DO [address] [place] [address] ReferringInternal Lbjgbqgd31/18/24 Team Status: Inactive Member Role Status Dates Asya Clements JR DO Primary Care Provider Active Start: August 09, 2024 End: August 09, 2024THAD Harris-CAttending ProviderActiveStart: August 09, 2024 End: August 09, 2024Team MemberRelationshipSpecialtyStart DateEnd Date Asya Clements Jr., DO [address] [place] [address] PCP - General08/24/01 Asya Clements Jr., DO [address] [place] [address] ReferringInternal Etpibgmq83/18/24Team MemberRelationshipSpecialtyStart DateEnd Date Asya Clements Jr., DO [address] [place] [address] PCP - General2 Asya Clements Jr., DO [address] [place] [address] ReferringInternal Lpnrepet85/18/24Te MemberRelationshipSpecialtyStart DateEnd Date Asya Clements Jr., DO [address] [place] [address] PCP - General08/24/01 Asya Clements Jr., DO [address] [place] [address] ReferringInternal Cqfpjldk75/18/24Te MemberRelationshipSpecialtyStart DateEnd Date Asya Clements Jr., DO [address] [place] [address] PCP - General08/24/01 Asya Clements Jr., DO [address] [place] [address] ReferringInternal Isldcumz36/18/24Te MemberRelationshipSpecialtyStart DateEnd Date Asya Clements Jr., DO [address] [place] [address] PCP - General2 Asya Clements Jr., DO [address] [place] [address] ReferringInternal Frulclej44/18/24Team MemberRelationshipSpecialtyStart DateEnd Date Asya Clements Jr., DO [address] [place] [address] PCP - General2 Asya Clements Jr., DO [address] [place] [address] ReferringInternal Bdlcnrxi67/18/24Team MemberRelationshipSpecialtyStart DateEnd Date Asya Clements Jr., DO [address] [place] [address] PCP - General08/24/01 Asya Clements Jr., DO [address] [place] [address] ReferringInternal Tclecoiz89/18/24Team MemberRelationshipSpecialtyStart DateEnd Date Asya Clements Jr., DO [address] [place] [address] PCP - General2 Asya Clements Jr., DO [address] [place] [address] ReferringInternal Cgliewug39/18/24Team MemberRelationshipSpecialtyStart DateEnd Date Asya Clements Jr., DO [address] [place] [address] PCP - General08/24/01 Asya Clements Jr., DO [address] [place] [address] ReferringInternal Qbojqjrx85/18/24Te MemberRelationshipSpecialtyStart DateEnd Date Asya Clements Jr., DO [address] [place] [address] PCP - General08/24/01 Asya Clements Jr., DO [address] [place] [address] ReferringInternal Ytroskgu94/18/24Te MemberRelationshipSpecialtyStart DateEnd Date Asya Clements Jr., DO [address] [place] [address] PCP - General08/24/01 Asya Clements Jr., DO [address] [place] [address] ReferringInternal Utgemuxg70/18/24Te MemberRelationshipSpecialtyStart DateEnd Date Asya Clements Jr., DO [address] [place] [address] PCP - General08/24/01 Asya Clements Jr., DO [address] [place] [address] ReferringInternal Hybhmphb68/18/24 Ghislaine Thakur RN [address] [facility] [place] [address] Specialty Care CoordinatorHematology/Oncology08/31/24 Isaac Gracia MD [address] [place] [address] PhysicianHematology/Oncology08/31/24 Vincent Estrada AUTOMOBILE BODY CUSTOMIZER.PARKING LOT ATTENDANT AND CASHIER [address] [place] [address] Hospice & Palliative Medicine08/31/24 Jazmyne Bryson RN Specialty Care CoordinatorHospice & Palliative Medicine08/31/24Team Member RelationshipSpecialtyStart DateEnd Date Asya Clements Jr., DO [address] [facility] [address] PCP - General08/24/01 Asya Clements Jr., DO [address] [facility] [place] [address] ReferringInternal Dovwkprq16/18/24 Ghislaine Thakur RN [address] [place] [address] Specialty Care CoordinatorHematology/Oncology08/31/24 Isaac Gracia MD [address] [facility] [address] PhysicianHematology/Oncology08/31/24 Vincent Estrada APRN.PARKING LOT ATTENDANT AND CASHIER [address] [place] [address] Hospice & Palliative Medicine08/31/24 Braydon, Jazmyne L, RN Specialty Care CoordinatorHospice & Palliative Medicine08/31/24Team Member RelationshipSpecialtyStart DateEnd Date Asya Clements Jr., DO [address] [facility] [place] [address] PCP - General08/24/01 Asya Clements Jr., DO [facility] [place] [address] ReferringInternal Wahwtlmd43/18/24 Ghislaine Thakur RN [address] [place] [address] [place] [address] Specialty Care CoordinatorHematology/Oncology08/31/24 Isaac Gracia MD [address] [place] [address] [place] [address] PhysicianHematology/Oncology08/31/24 Vincent Estrada APRN.PARKING [employer] ATTENDANT AND CASHIER [address] [place] [address] [place] [address] Hospice & Palliative Medicine08/31/24 Jazmyne Bryson RN Specialty Care CoordinatorHospice & Palliative Medicine08/31/24Team Member RelationshipSpecialtyStart DateEnd Date Asya Clements Jr., DO [facility] [place] [address] PCP - General08/24/01 Asya Clements Jr., DO [facility] [place] [address] ReferringInternal Jhdjvjyz02/18/24 Ghislaine Thakur RN [address] [place] [address] Specialty Care CoordinatorHematology/Oncology2/12/25 Iasac Gracia MD [address] [place] [address] PhysicianHematology/Oncology08/31/24 Vincent Estrada AUTOMOBILE BODY CUSTOMIZER.PARKING LOT ATTENDANT AND CASHIER [address] [place] [address] Hospice & Palliative Medicine08/31/24 Jazmyne Bryson RN Specialty Care CoordinatorHospice & Palliative Medicine08/31/24Team Member RelationshipSpecialtyStart DateEnd Date Asya Clements Jr., DO [address] [place] [address] PCP - General08/24/01 Asya Clements Jr., DO [address] [place] [address] ReferringInternal Abvdstsx84/18/24 Ghislaine Thakur RN [address] [place] [address] Specialty Care CoordinatorHematology/Oncology08/31/24 Isaac Gracia MD [address] [facility] [address] PhysicianHematology/Oncology08/31/24 Vincent Estrada AUTOMOBILE BODY CUSTOMIZER.PARKING LOT ATTENDANT AND CASHIER [address] [place] [address] Hospice & Palliative Medicine08/31/24 Jazmyne Bryson RN Specialty Care CoordinatorHospice & Palliative Medicine08/31/24 Team Status: Inactive Member Role Status Dates Asya Clements JR DO Primary Care Provider Active Start: September 01, 2024 End: September 01, 2024Nikolayosvaldo Crowley Attending ProviderActiveStart: September 01, 2024 End: September 01, 2024Team MemberRelationshipSpecialtyStart DateEnd Date Asya Clements Jr., DO [address] [place] [address] PCP - General08/24/01 Asya Clements Jr., DO [address] [place] [address] ReferringInternal Ahyhsxeq77/18/24 Ghislaine Thakur RN [address] [place] [address] [place] [address] Specialty Care CoordinatorHematology/Oncology08/31/24 Isaac Gracia MD [address] [place] [address] [place] [address] PhysicianHematology/Oncology08/31/24 Vincent Estrada APRN.PARKING LOT ATTENDANT AND CASHIER [address] [place] [address] [place] [address] Hospice & Palliative Medicine08/31/24 Jazmyne Bryson RN Specialty Care CoordinatorHospice & Palliative Medicine08/31/24Team Member RelationshipSpecialtyStart DateEnd Date Asya Clements Jr., DO [address] [place] [address] PCP - General08/24/01 Asya Clements Jr., DO [address] [place] [address] ReferringInternal Iudvdotr33/18/24 Ghislaine Thakur MEKHI [address] [place] [address] [place] [address] Specialty Care CoordinatorHematology/Oncology08/31/24 Isaac Gracia MD [address] [place] [address] PhysicianHematology/Oncology08/31/24 Vincent Estrada, SURESH.PARKING LOT ATTENDANT AND CASHIER [address] [place] [address] Hospice & Palliative Medicine08/31/24 Jazmyne Bryson RN [...] Nesbitt , APRNOther ProviderActiveStart: September 09, 2024 Pickens Roman Alvarez Jr, DOOther ProviderActiveStart: September 09, [...] Jr DOOther ProviderActiveStart: September 09, 2024 Eyal Burt MDOther ProviderActiveStart: September 09, 2024 Clovis Day MDOther ProviderActiveStart: September 09, 2024 Taylor Smart MDOther ProviderActiveStart: September 09, 2024 Juan C Schreiber MDOther ProviderActiveStart: September 09, 2024 Vicki Soriano NP-COther ProviderActiveStart: September 09, 2024 Danny Adames MDOther ProviderActiveStart: September 09, 2024 Rodolfo Valdez MDOther ProviderActiveStart: September 09, 2024 Team MemberRelationshipSpecialtyStart DateEnd Date Asya Clements Jr., DO [address] [place] [address] PCP - General08/24/01 Asya Clements Jr., DO [address] [place] [address] ReferringInterangel medical center Hcjzzadr62/18/24 Ghislaine Thakur RN [address] [place] [address] Specialty Care CoordinatorHematology/Oncology08/31/24 Isaac Gracia MD [address] [place], [place] [address] [address] PhysicianHematology/Oncology08/31/24 Vincent Estrada APRN.PARKING LOT ATTENDANT AND CASHIER [address] [place] [address] [place] [address] Hospice & Palliative Medicine08/31/24 Jazmyne Bryson RN Specialty Care CoordinatorHospice & Palliative Medicine08/31/24Team Member RelationshipSpecialtyStart DateEnd Date Asya Clements Jr., DO [address] [place] [address] PCP - General08/24/01 Asya Clements Jr., DO [address] [facility] [place] [address] ReferringInternal Mbidqpds85/18/24 Ghislaine Thakur RN [address] [place] [address] [place] [address] Specialty Care CoordinatorHematology/Oncology08/31/24 Isaac Gracia MD [address] [place] [address] [place] [address] PhysicianHematology/Oncology08/31/24 Vincent Estrada APRN.PARKING LOT ATTENDANT AND CASHIER [address] [place] [address] Hospice & Palliative Medicine08/31/24 Jazmyne Bryson RN Specialty Care CoordinatorHospice & Palliative Medicine08/31/24Team Member RelationshipSpecialtyStart DateEnd Date Asya Clements Jr., DO [address] [place] [address] PCP - General08/24/01 Asya Clements Jr., DO [address] [facility] [place] [address] ReferringInternal Fgbcckbq25/18/24 Ghislaine Thakur RN [address] [place] [address] Specialty Care CoordinatorHematology/Oncology08/31/24 Isaac Gracia MD [address] [place] [address] PhysicianHematology/Oncology08/31/24 Vincent Estrada AUTOMOBILE BODY CUSTOMIZER.PARKING LOT ATTENDANT AND CASHIER [address] [place] [address] Hospice & Palliative Medicine08/31/24 Jazmyne Bryson RN Specialty Care CoordinatorHospice & Palliative Medicine08/31/24Team Member RelationshipSpecialtyStart DateEnd Date Asya Clements Jr., DO [facility] [place] [address] [facility] - General08/24/01 Asya Clements Jr., DO [facility] [place] [address] ReferringInternal Mzpknvbv21/18/24 Ghislaine Thakur RN [address] [facility] [place] [address] Specialty Care CoordinatorHematology/Oncology08/31/24 Isaac Gracia MD [address] [facility] [address] PhysicianHematology/Oncology08/31/24 Vincent Estrada, AUTOMOBILE BODY CUSTOMIZER.PARKING LOT ATTENDANT AND CASHIER [address] [facility] [address] Hospice & Palliative Medicine08/31/24 Braydon, Jazmyne L, RN Specialty Care CoordinatorHospice & Palliative Medicine08/31/24Team Member RelationshipSpecialtyStart DateEnd Date Asya Clements Jr., DO [address] [place] [address] PCP - General08/24/01 Asya Clements Jr., DO [address] [place] [address] ReferringInternal Qmkftrif21/18/24 Ghislaine Thakur RN [address] [place] [address] [place] [address] Specialty Care CoordinatorHematology/Oncology08/31/24 Isaac Gracia MD [address] [place] [address] PhysicianHematology/Oncology08/31/24 Vincent Estrada APRN.PARKING LOT ATTENDANT AND CASHIER [address] [place] [address] Hospice & Palliative Medicine08/31/24 Jazmyne Bryson RN Specialty Care CoordinatorHospice & Palliative Medicine08/31/24Team Member RelationshipSpecialtyStart DateEnd Date Asya Clements Jr., DO [address] [place] [address] PCP - General08/24/01 Asya Clements Jr., DO [address] [facility] [place] [address] ReferringInternal Ufhaiuuu72/18/24Team MemberRelationshipSpecialtyStart DateEnd Date Asya Clements Jr., DO [address] [facility] [place] [address] PCP - General08/24/01 Asya Clements Jr., DO [facility] [place] [address] ReferringInternal Gyspmtff41/18/24 Ghislaine Thakur RN [address] [place] [address] Specialty Care CoordinatorHematology/Oncology08/31/24 Isaac Gracia MD [address] [place] [address] PhysicianHematology/Oncology08/31/24 Vincent Estrada APRN.PARKING LOT ATTENDANT AND CASHIER [address] [place] [address] Hospice & Palliative Medicine08/31/24 Jazmyne Bryson RN Specialty Care CoordinatorHospice & Palliative Medicine08/31/24Team Member RelationshipSpecialtyStart DateEnd Date Asya Clements Jr., DO [facility] [place] [address] PCP - General08/24/01 Asya Clements Jr., DO [facility] [place] [address] ReferringInternal Lddzwcdl61/18/24 Ghislaine Thakur RN [address] [place] [address] Specialty Care CoordinatorHematology/Oncology08/31/24 Isaac Gracia MD [address] [place] [address] PhysicianHematology/Oncology08/31/24 Vincent Estrada, AUTOMOBILE BODY CUSTOMIZER.PARKING LOT ATTENDANT AND CASHIER [address] [place] [address] Hospice & Palliative Medicine08/31/24 Jazmyne Bryson RN Specialty Care CoordinatorHospice & Palliative Medicine08/31/24Team Member RelationshipSpecialtyStart DateEnd Date Asya Clements Jr., DO [facility] [place] [address] [facility] - General08/24/01 Asya Clements Jr., DO [address] [place] [address] [place] [address] ReferringInternal Dbbfcjbb51/18/24 Ghislaine Thakur RN [address] [place] [address] Specialty Care CoordinatorHematology/Oncology08/31/24 Isaac Gracia MD [address] [place] [address] [place] [address] PhysicianHematology/Oncology08/31/24 Vincent Estrada, AUTOMOBILE BODY CUSTOMIZER.PARKING LOT ATTENDANT AND CASHIER [address] [place] [address] Hospice & Palliative Medicine08/31/24 Jazmyne Bryson, RN Specialty Care CoordinatorHospice & Palliative Medicine08/31/24 Danielle Castellon LSW Social Worker09/29/24Team MemberRelationshipSpecialtyStart DateEnd Date Asya Clements Jr., DO [address] [place] [address] [place] [address] PCP - General08/24/01 Asya Clements Jr., DO [facility] [place] [address] ReferringInternal Cawcktbi36/18/24 Ghislaine Thakur RN [address] [place] [address] Specialty Care CoordinatorHematology/Oncology08/31/24 Isaac Gracia MD [address] [place] [address] PhysicianHematology/Oncology08/31/24 Vincent Estrada APRN.PARKING LOT ATTENDANT AND CASHIER [address] [facility] [place] [address] Hospice & Palliative Medicine08/31/24 Jazmyne Bryson RN Specialty Care CoordinatorHospice & Palliative Medicine08/31/24 Danielle Castellon LSW Social Worker09/29/24Team MemberRelationshipSpecialtyStart DateEnd Date Asya Clements Jr., DO [facility] [place] [address] PCP - General08/24/01 Asya Clements Jr., DO [address] [place] [address] [place] [address] ReferringInternal Gjaoqqir51/18/24 Ghislaine Thakur RN [address] [place] [address] Specialty Care CoordinatorHematology/Oncology08/31/24 Isaac Gracia MD [address] [place] [address] PhysicianHematology/Oncology08/31/24 Vincent Estrada APRN.PARKING LOT ATTENDANT AND CASHIER [address] [place] [address] [place] [address] Hospice & Palliative Medicine08/31/24 Jazmyne Bryson RN Specialty Care CoordinatorHospice & Palliative Medicine08/31/24 Danielle Castellon LSW Social Worker09/29/24Team MemberRelationshipSpecialtyStart DateEnd Date Asya Clements MD [address] [facility] [place], [place] [address] PCP - GeneralInternal Medicine01/07/23 Shasta Wade PA [address] [facility] [address] [place] [address] Physician AssistantNeurology10/10/24Team MemberRelationshipSpecialtyStart DateEnd Date Asya Clements Jr., DO [address] [facility] [place] [address] PCP - General08/24/01 Asya Clements Jr., DO [address] [facility] [place] [address] ReferringInternal Ekzxyevs11/18/24 Ghislaine Thakur RN [address] [place] [address] [place] [address] Specialty Care CoordinatorHematology/Oncology08/31/24 Isaac Gracia MD [address] [place] [address] [place] [address] PhysicianHematology/Oncology08/31/24 Vincent Estrada APRN.PARKING LOT ATTENDANT AND CASHIER [address] [place] [address] Hospice & Palliative Medicine08/31/24 Jazmyne Bryson RN Specialty Care CoordinatorHospice & Palliative Medicine08/31/24 Danielle Castellon LSW Social Worker09/29/24Team MemberRelationshipSpecialtyStart DateEnd Date Asya Clements Jr., DO [facility] [place] [address] PCP - General08/24/01 Asya Clements Jr., DO [facility] [place] [address] ReferringInternal Pivtmjab90/18/24 Ghislaine Thakur RN [address] [place] [address] Specialty Care CoordinatorHematology/Oncology08/31/24 Isaac Gracia MD [address] [place] [address] PhysicianHematology/Oncology08/31/24 Vincent Estrada, AUTOMOBILE BODY CUSTOMIZER.PARKING LOT ATTENDANT AND CASHIER [address] [place] [address] Hospice & Palliative Medicine08/31/24 Jazmyne Bryson RN Specialty Care CoordinatorHospice & Palliative Medicine08/31/24 Danielle Castellon LSW Social Worker09/29/24Team MemberRelationshipSpecialtyStart DateEnd Date Asya Clements Jr., DO [address] [place] [address] [place] [address] PCP - General08/24/01 Asya Clements Jr., DO [facility] [place] [address] ReferringInternal Dxjcfdgj15/18/24 Ghislaine Thakur, RN [address] [place] [address] Specialty Care CoordinatorHematology/Oncology08/31/24 Isaac Gracia MD [address] [place] [address] PhysicianHematology/Oncology08/31/24 Vincent Estrada APRN.PARKING LOT ATTENDANT AND CASHIER [address] [place] [address] Hospice & Palliative Medicine08/31/24 Jazmyne Bryson RN Specialty Care CoordinatorHospice & Palliative Medicine08/31/24 Danielle Castellon LSW Social Worker09/29/24Team MemberRelationshipSpecialtyStart DateEnd Date Asya Clements Jr., DO [facility] [place] [address] PCP - General08/24/01 Asya Clements Jr., DO [facility] [place] [address] ReferringInternal Carhpbex04/18/24 Ghislaine Thakur RN [address] [place] [address] Specialty Care CoordinatorHematology/Oncology08/31/24 Isaac Gracia MD [address] [place] [address] PhysicianHematology/Oncology08/31/24 Vincent Estrada, AUTOMOBILE BODY CUSTOMIZER.PARKING LOT ATTENDANT AND CASHIER [address] [place] [address] Hospice & Palliative Medicine08/31/24 Jazmyne Bryson RN Specialty Care CoordinatorHospice & Palliative Medicine08/31/24 Danielle Castellon LSW Social Worker09/29/24Team MemberRelationshipSpecialtyStart DateEnd Date Asya Clements Jr., DO [facility] [place] [address] PCP - General08/24/01 Asya Clements Jr., DO [address] [place] [address] [place] [address] ReferringInternal Mpargvhn07/18/24 Ghislaine Thakur RN [address] [place] [address] Specialty Care CoordinatorHematology/Oncology08/31/24 Isaac Gracia MD [address] [place] [address] [place] [address] PhysicianHematology/Oncology08/31/24 Vincent Estrada, AUTOMOBILE BODY CUSTOMIZER.PARKING LOT ATTENDANT AND CASHIER [address] [place] [address] Hospice & Palliative Medicine08/31/24 Jazmyne Bryson RN Specialty Care CoordinatorHospice & Palliative Medicine08/31/24 Danielle Castellon LSW Social Worker09/29/24Team MemberRelationshipSpecialtyStart DateEnd Date Asya Clements Jr., DO [address] [place] [address] [place] [address] PCP - General08/24/01 Asya Clements Jr., DO [address] [place] [address] ReferringInternal Hgtlgdwh25/18/24 Ghislaine Thakur, RN [address] [place] [address] Specialty Care CoordinatorHematology/Oncology08/31/24 Isaac Gracia MD [address] [place] [address] PhysicianHematology/Oncology08/31/24 Vincent Estrada APRN.PARKING LOT ATTENDANT AND CASHIER [address] [place] [address] Hospice & Palliative Medicine08/31/24 Jazmyne Bryson RN Specialty Care CoordinatorHospice & Palliative Medicine08/31/24 Danielle Castellon LSW Social Worker09/29/24 Team Status: Inactive Member Role Status Dates Asya Clements JR DO Primary Care Pr ovidmargret, Attending Provider Active Start: November 08, 2024 End: November 08, 2024Team MemberRelationshipSpecialtyStart DateEnd Date Asya Clements Jr., DO [address] [facility] [place] [address] PCP - General08/24/01 Asya Clements Jr., DO [address] [facility] [place] [address] ReferringInternal Ellyuizr87/18/24 Ghislaine Thakur, MEKHI [address] [place] [address] Specialty Care CoordinatorHematology/Oncology08/31/24 Isaac Gracia MD [address] [place] [address] [place] [address] PhysicianHematology/Oncology08/31/24 Vincent Estrada APRN.PARKING LOT ATTENDANT AND CASHIER [address] [place] [address] [place] [address] Hospice & Palliative Medicine08/31/24 Jazmyne Bryson RN Specialty Care CoordinatorHospice & Palliative Medicine08/31/24 Danielle Castellon LSW Social Worker09/29/24Team MemberRelationshipSpecialtyStart DateEnd Date Asya Clements MD [address] [place] [address] PCP - GeneralInternal Medicine01/07/23 Shasta Wade PA 54[address] [facility] [address] [place] [address] Physician AssistantNeurology10/10/24Team MemberRelationshipSpecialtyStart DateEnd Date Asya Clements MD [address] [place] [id number] PCP - GeneralInternal Medicine01/07/23 Shasta Wade PA 5433 [facility] [address] [place] [address] Physician AssistantNeurology10/10/24Team MemberRelationshipSpecialtyStart DateEnd Date Asya Clements Jr., DO [facility] [place] [address] PCP - General08/24/01 Asya Clements Jr., DO [facility] [place] [address] ReferringInternal Eeqqeqhs00/18/24 Ghislaine Thakur RN [address] [place] [address] Specialty Care CoordinatorHematology/Oncology08/31/24 Isaac Gracia MD [address] [place] [address] PhysicianHematology/Oncology08/31/24 Vincent Estrada APRN.PARKING LOT ATTENDANT AND CASHIER [address] [place] [address] Hospice & Palliative Medicine08/31/24 Jazmyne Bryson RN Specialty Care CoordinatorHospice & Palliative Medicine08/31/24 Danielle Castellon LSW Social Worker09/29/24Team MemberRelationshipSpecialtyStart DateEnd Date Asya Clements Jr., DO [address] [place] [address] [facility] - General08/24/01 Asya Clements Jr., DO [facility] [place] [address] ReferringInternal Misczkie52/18/24 Ghislaine Thakur RN [address] [place] [address] Specialty Care CoordinatorHematology/Oncology08/31/24 Isaac Gracia MD [address] [place] [address] PhysicianHematology/Oncology08/31/24 Vincent Estrada APRN.PARKING LOT ATTENDANT AND CASHIER [address] [place] [address] Hospice & Palliative Medicine08/31/24 Jazmyne Bryson, RN Specialty Care CoordinatorHospice & Palliative Medicine08/31/24 Danielle Castellon LSW Social Worker09/29/24Team MemberRelationshipSpecialtyStart DateEnd Date Asya Clements Jr., DO [address] [place] [address] [place] [address] PCP - General08/24/01 Asya Clements Jr., DO [address] [place] [address] [place] [address] ReferringInternal Jdqgjytn91/18/24 Ghislaine Thakur RN [address] [place] [address] Specialty Care CoordinatorHematology/Oncology08/31/24 Isaac Gracia MD [address] [place] [address] [place] [address] PhysicianHematology/Oncology08/31/24 Vincent Estrada APRN.PARKING LOT ATTENDANT AND CASHIER [address] [place] [address] Hospice & Palliative Medicine08/31/24 Jazmyne Bryson RN Specialty Care CoordinatorHospice & Palliative Medicine08/31/24 Danielle Castellon LSW Social Worker09/29/24Team MemberRelationshipSpecialtyStart DateEnd Date Asya Clements Jr., DO [address] [place] [address] [place] [address] PCP - General08/24/01 Asya Clements Jr., DO [address] [place] [address] ReferringInternal Txqghigf34/18/24 Ghislaine Thakur, MEKHI [address] [place] [address] Specialty Care CoordinatorHematology/Oncology08/31/24 Isaac Gracia MD [address] [place] [address] [place] [address] PhysicianHematology/Oncology08/31/24 Vincent Estrada APRN.PARKING LOT ATTENDANT AND CASHIER [address] [place] [address] [place] [address] Hospice & Palliative Medicine08/31/24 Jazmyne Bryson RN Specialty Care CoordinatorHospice & Palliative Medicine08/31/24 Danielle Castellon LSW Social Worker09/29/24Team MemberRelationshipSpecialtyStart DateEnd Date Asya Clements Jr., DO [facility] [place] [address] PCP - General08/24/01 Asya Clements Jr., DO [facility] [place] [address] ReferringInternal Mmlntufl63/18/24 Ghislaine Thakur, MEKHI [address] [place] [address] Specialty Care CoordinatorHematology/Oncology08/31/24 Isaac Gracia MD [address] [place] [address] [place] [address] PhysicianHematology/Oncology08/31/24 Vincent Estrada APRN.PARKING LOT ATTENDANT AND CASHIER [address] [place] [address] Hospice & Palliative Medicine08/31/24 Jazmyne Bryson RN Specialty Care CoordinatorHospice & Palliative Medicine08/31/24 Danielle Castellon, LIZZY Social Worker09/29/24Team MemberRelationshipSpecialtyStart DateEnd Date Asya Clements Jr., DO [address] [facility] [place] [address] PCP - General08/24/01 Asya Clements Jr., DO [address] [facility] [place] [address] ReferringInternal Nowszout86/18/24 Ghislaine Thakur RN [address] [place] [address] Specialty Care CoordinatorHematology/Oncology08/31/24 Isaac Gracia MD [address] [place] [address] PhysicianHematology/Oncology08/31/24 Vincent Estrada APRN.PARKING LOT ATTENDANT AND CASHIER [address] [place] [address] Hospice & Palliative Medicine08/31/24 Jazmyne Bryson RN Specialty Care CoordinatorHospice & Palliative Medicine08/31/24 Danielle Castellon LSW Social Worker09/29/24Team MemberRelationshipSpecialtyStart DateEnd Date Asya Clements Jr., DO [address] [facility] [place] [address] PCP - General08/24/01 Asya Clements Jr., DO [facility] [place] [address] ReferringInternal Kdyxryzf47/18/24 Ghislaine Thakur, RN [address] [facility] [place] [address] Specialty Care CoordinatorHematology/Oncology08/31/24 Isaac Gracia MD [address] [place] [address] PhysicianHematology/Oncology08/31/24 Vincent Estrada APRN.PARKING LOT ATTENDANT AND CASHIER [address] [place] [address] Hospice & Palliative Medicine08/31/24 Jazmyne Bryson RN Specialty Care CoordinatorHospice & Palliative Medicine08/31/24 Danielle Castellon LSW Social Worker09/29/24Team MemberRelationshipSpecialtyStart DateEnd Date Asya Clements Jr., DO [facility] [place] [address] PCP - General08/24/01 Asya Clements Jr., DO [facility] [place] [address] ReferringInternal Xktuvufn91/18/24 Ghislaine Thakur, MEKHI [address] [place] [address] Specialty Care CoordinatorHematology/Oncology08/31/24 Isaac Gracia MD [address] [place] [address] PhysicianHematology/Oncology08/31/24 Vincent Estrada AUTOMOBILE BODY CUSTOMIZER.PARKING LOT ATTENDANT AND CASHIER [address] [place] [address] Hospice & Palliative Medicine08/31/24 Jazmyne Bryson RN Specialty Care CoordinatorHospice & Palliative Medicine08/31/24 Danielle Castellon LSW Social Worker09/29/24Team MemberRelationshipSpecialtyStart DateEnd Date Asya Clements Jr., DO [facility] [place] [address] PCP - General08/24/01 Asya Clements Jr., DO [address] [place] [address] [place] [address] ReferringInternal Nwthvafp27/18/24 Ghislaine Thakur RN [address] [place] [address] Specialty Care CoordinatorHematology/Oncology08/31/24 Isaac Gracia MD [address] [place] [address] [place] [address] PhysicianHematology/Oncology08/31/24 Vincent Estrada, AUTOMOBILE BODY CUSTOMIZER.PARKING LOT ATTENDANT AND CASHIER [address] [place] [address] Hospice & Palliative Medicine08/31/24 Jazmyne Bryson RN Specialty Care CoordinatorHospice & Palliative Medicine08/31/24 Danielle Castellon LSW Social Worker09/29/24Team MemberRelationshipSpecialtyStart DateEnd Date Asya Clements Jr., DO [address] [place] [address] [place] [address] PCP - General08/24/01 Asya Clements Jr., DO [facility] [place] [address] ReferringInternal Rvkxjgwx91/18/24 Ghislaine Thakur, RN [address] [place] [address] Specialty Care CoordinatorHematology/Oncology08/31/24 Isaac Gracia MD [address] [facility] [place] [address] PhysicianHematology/Oncology08/31/24 Vincent Estrada APRN.PARKING LOT ATTENDANT AND CASHIER [address] [place] [address] Hospice & Palliative Medicine08/31/24 Jazmyne Bryson RN Specialty Care CoordinatorHospice & Palliative Medicine08/31/24 Danielle Castellon LSW Social Worker09/29/24Team MemberRelationshipSpecialtyStart DateEnd Date Asya Clements Jr., DO [facility] [place] [address] PCP - General08/24/01 Asya Clements Jr., DO [facility] [place] [address] ReferringInternal Vaxjlyzg15/18/24 Ghislaine Thakur, MEKHI [address] [place] [address] Specialty Care CoordinatorHematology/Oncology08/31/24 Isaac Gracia MD [address] [place] [address] PhysicianHematology/Oncology08/31/24 Vincent Estrada, AUTOMOBILE BODY CUSTOMIZER.PARKING LOT ATTENDANT AND CASHIER [address] [place] [address] Hospice & Palliative Medicine08/31/24 Jazmyne Bryson RN Specialty Care CoordinatorHospice & Palliative Medicine08/31/24 Danielle Castellon LSW Social Worker09/29/24Team MemberRelationshipSpecialtyStart DateEnd Date Asya Clements Jr., DO [address] [place] [address] PCP - General08/24/01 Asya Clements Jr., DO [address] [place] [address] ReferringInternal Cstohlnx64/18/24 Ghislaine Thakur RN [address] [place] [address] Specialty Care CoordinatorHematology/Oncology08/31/24 Isaac Gracia MD [address] [place] [address] [place] [address] PhysicianHematology/Oncology08/31/24 Vincent Estrada, AUTOMOBILE BODY CUSTOMIZER.PARKING LOT ATTENDANT AND CASHIER [address] [place] [address] Hospice & Palliative Medicine08/31/24 Jazmyne Bryson RN [...] Clements Jr., DO [address] [facility] [place] [address] PCP - General08/24/01 Asya Clements Jr., DO [facility] [place] [address] ReferringInternal Xfsybxge75/18/24 Ghislaine Thakur RN [address] [place] [address] [place] [address] Specialty Care CoordinatorHematology/Oncology08/31/24 Isaac Gracia MD [address] [place] [address] [place] [address] PhysicianHematology/Oncology08/31/24 Vincent Estrada APRN.PARKING LOT ATTENDANT AND CASHIER [address] [place] [address] [place] [address] Hospice & Palliative Medicine08/31/24 Jazmyne Bryson RN Specialty Care CoordinatorHospice & Palliative Medicine08/31/24 Danielle Castellon, LIZZY Social Worker09/29/24Team MemberRelationshipSpecialtyStart DateEnd Date Asya Clements Jr., DO [address] [place] [address] PCP - General08/24/01 Asya Clements Jr., DO [address] [place] [address] ReferringInternal Mmnzoqaf91/18/24 Ghislaine Thakur RN [address] [facility] [address] [place], [place] [address] Specialty Care CoordinatorHematology/Oncology08/31/24 Isaac Gracia MD [address] [place] [address] [place] [address] PhysicianHematology/Oncology08/31/24 Vincent Estrada APRN.PARKING LOT ATTENDANT AND CASHIER [address] [place] [address] [place] [address] Hospice & Palliative Medicine08/31/24 Jazmyne Bryson RN Specialty Care CoordinatorHospice & Palliative Medicine08/31/24 Danielle Castellon LSW Social Worker09/29/24Team MemberRelationshipSpecialtyStart DateEnd Date Asya Clements Jr., DO [address] [place] [address] PCP - General08/24/01 Asya Clements Jr., DO [address] [place] [address] ReferringInternal Bnhmcmgh33/18/24 Ghislaine Thakur RN [address] [place] [address] Specialty Care CoordinatorHematology/Oncology08/31/24 Isaac Gracia MD [address] [place] [address] PhysicianHematology/Oncology08/31/24 Vincent Estrada AUTOMOBILE BODY CUSTOMIZER.PARKING LOT ATTENDANT AND CASHIER [address] [place] [address] Hospice & Palliative Medicine08/31/24 Jazmyne Bryson RN Specialty Care CoordinatorHospice & Palliative Medicine08/31/24 Danielle Castellon LSW Social Worker09/29/24Team MemberRelationshipSpecialtyStart DateEnd Date Asya Clements Jr., DO [facility] [place] [address] PCP - General08/24/01 Asya Clements Jr., DO [address] [place] [address] [place] [address] ReferringInternal Jysbiffy50/18/24 Ghislaine Thakur RN [address] [place] [address] Specialty Care CoordinatorHematology/Oncology08/31/24 Isaac Gracia MD [address] [facility] [address] PhysicianHematology/Oncology08/31/24 Vincent Estrada, AUTOMOBILE BODY CUSTOMIZER.PARKING LOT ATTENDANT AND CASHIER [address] [place] [address] Hospice & Palliative Medicine08/31/24 Jazmyne Bryson RN Specialty Care CoordinatorHospice & Palliative Medicine08/31/24 Danielle Castellon LSW Social Worker09/29/24Team MemberRelationshipSpecialtyStart DateEnd Date Asya Clements Jr., DO [address] [place] [address] PCP - General08/24/01 Asya Clements Jr., DO [address] [place] [address] ReferringInternal Zdgquolv09/18/24 Ghislaine Thakur RN [address] [place] [address] [place] [address] Specialty Care CoordinatorHematology/Oncology08/31/24 Isaac Gracia MD [address] [place] [address] [place] [address] PhysicianHematology/Oncology08/31/24 Vincent Estrada, AUTOMOBILE BODY CUSTOMIZER.PARKING LOT ATTENDANT AND CASHIER [address] [place] [address] [place] [address] Hospice & Palliative Medicine08/31/24 Jazmyne Bryson RN Specialty Care CoordinatorHospice & Palliative Medicine08/31/24 Danielle Castellon LSW Social Worker09/29/24Team MemberRelationshipSpecialtyStart DateEnd Date Asya Clements Jr., DO [address] [place] [address] PCP - General08/24/01 Asya Clements Jr., DO [address] [place] [address] ReferringInternal Nyodsvav34/18/24 Ghislaine Thakur RN [address] [place] [address] Specialty Care CoordinatorHematology/Oncology08/31/24 Isaac Gracia MD [address] [place] [address] PhysicianHematology/Oncology08/31/24 Vincent Estrada APRN.PARKING LOT ATTENDANT AND CASHIER [address] [place] [address] Hospice & Palliative Medicine08/31/24 Jazmyne Bryson RN Specialty Care CoordinatorHospice & Palliative Medicine08/31/24 Danielle Castellon LSW Social Worker09/29/24Team MemberRelationshipSpecialtyStart DateEnd Date Asya Clements Jr., DO [facility] [place] [address] PCP - General08/24/01 Asya Clements Jr., DO [facility] [place] [address] ReferringInternal Xfkmohxt31/18/24 Ghislaine Thakur RN [address] [facility] [place] [address] Specialty Care CoordinatorHematology/Oncology08/31/24 Isaac Gracia MD [address] [facility] [address] PhysicianHematology/Oncology08/31/24 Vincent Estrada APRN.PARKING LOT ATTENDANT AND CASHIER [address] [facility] [address] Hospice & Palliative Medicine08/31/24 Jazmyne Bryson RN Specialty Care CoordinatorHospice & Palliative Medicine08/31/24 Danielle Castellon LSW Social Worker09/29/24Team MemberRelationshipSpecialtyStart DateEnd Date Asya Clements Jr., DO [address] [place] [address] PCP - General08/24/01 Asya lCements Jr., DO [address] [facility] [place] [address] ReferringInternal Bgqjmwsh92/18/24 Ghislaine Thakur RN [address] [place] [address] [address] [place], [place] [id number] Specialty Care CoordinatorHematology/Oncology08/31/24 Isaac Gracia MD [address] [place] [address] [place] [address] PhysicianHematology/Oncology08/31/24 Vincent Estrada APRN.PARKING LOT ATTENDANT AND CASHIER [address] [place] [address] Hospice & Palliative Medicine08/31/24 Jazmyne Bryson RN Specialty Care CoordinatorHospice & Palliative Medicine08/31/24 Danielle Castellon LSW Social Worker09/29/24 INFORMATION SOURCE (unrecogn ized section and content) DATE CREATED AUTHOR 11/15/2022 [facility] DATE CREATED AUTHOR AUTHOR'S ORGANIZ ATION 05/30/2024 [facility] DATE CREATED AUTHOR AUTHOR'S ORGANIZ ATION 11/25/2024 [facility] EPIC DATE CREATED AUTHOR AUTHOR'S ORGANIZ ATION 02/11/2025 [facility] DATE CREATED AUTHOR AUTHOR'S ORGANIZ ATION 03/04/2025 [facility] DATE CREATED AUTHOR AUTHOR'S ORGANIZ ATION 05/31/2025 [facility] Goals (unrecognized section and content) [...] BE BASED ON THE PRIMARY CLINICAL RECORDS. [facility] [employer] [facility]. provides no warranty or guarantee of the accuracy or completeness of information in this document.
== END 2025-07-17 07:55 | disposition home or self-care (01) ==
LOC: US 07:54
PROVIDERS: PCP Internal Medicine; Visit Provider Student in an Organized Health Care Education/Training Program
DX: R60.0 Localized edema (principal)
CPT/HCPCS: 93971